=== PATIENT | female | born 1950 | race Caucasian/White ===

== ENCOUNTER 2023-04-19 17:59 | Outpatient (RCR) | payer OTHER, SELFPAY | END 2023-05-14 23:59 | disposition home or self-care (01) | LOC: MM 17:59 | PROVIDERS: PCP Internal Medicine; Visit Provider Internal Medicine | DX: Z51.81 Encounter for therapeutic drug level monitoring (principal); Z79.01 Long term (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 of anticoagulants | CPT/HCPCS: 85610; G0463 ==

== ENCOUNTER 2023-05-20 08:28 | Outpatient (RCR) | payer OTHER, SELFPAY | END 2023-06-14 16:48 | disposition home or self-care (01) | LOC: MM 08:28 | PROVIDERS: PCP Internal Medicine; Visit Provider Internal Medicine | DX: Z51.81 Encounter for therapeutic drug level monitoring (principal); Z79.01 Long term (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 of anticoagulants | CPT/HCPCS: 85610; G0463 ==

== ENCOUNTER 2023-06-15 09:01 | Outpatient (RCR) | payer OTHER, SELFPAY | END 2023-07-15 17:21 | disposition home or self-care (01) | LOC: MM 09:01 | PROVIDERS: Visit Provider Internal Medicine | DX: Z51.81 Encounter for therapeutic drug level monitoring (principal); Z79.01 Long term (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 of anticoagulants | CPT/HCPCS: 85610; G0463 ==

== ENCOUNTER 2023-07-16 08:33 | Outpatient (RCR) | payer OTHER, SELFPAY | END 2023-08-13 16:36 | disposition home or self-care (01) | LOC: MM 08:33 | PROVIDERS: PCP Internal Medicine; Visit Provider Internal Medicine | DX: Z51.81 Encounter for therapeutic drug level monitoring (principal); Z79.01 Long term (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 of anticoagulants | CPT/HCPCS: 85610; G0463 ==

== ENCOUNTER 2023-07-30 08:19 | Outpatient (OUT) | payer OTHER, SELFPAY ==
--- NOTE | 2023-07-30 08:21 | MM_ITS ---
Patient: BREANNA MCCORMICK Exam Date: 07/30/2023 : 1950 Gender:F Ordering : DR Broderick Joiner D.O. Admission #: [id number] Family : Order #: [id number] CLICK HERE TO VIEW EXAM RADIOLOGY REPORT PROCEDURE: MM TOMOSYNTHESIS SCREENING BI COMPARISON: MG MAMM SCREEN 3D [place] CAD, 06/24/2021. MG MAMM SCREEN 3D [place] CAD, 07/29/2022. INDICATIONS: Screening Calculator Name NCI Breast Cancer Risk Assessment Tool 5 Year Breast Cancer Risk 3.80% Lifetime Breast Cancer Risk 9.20% Personal Breast Cancer No Personal Ovarian Cancer No Treatments whipple procedure Family Cancers Sister with breast cancer at age 42; Father with liver cancer at age 57; Brother with pancreatic cancer at age 64. LOCATION: [facility] BREAST COMPOSITION: Heterogeneously dense,which may obscure small masses. FINDINGS: DIAGNOSTIC CATEGORY 2--BENIGN FINDING. NO CHANGE FROM COMPARISON. Scattered benign-appearing nodules are present. Scattered benign-appearing calcifications are present. Scattered benign-appearing lymph nodes are present. RIGHT BREAST: No significant suspicious finding. LEFT BREAST: No significant suspicious finding. RECOMMENDATIONS: ROUTINE MAMMOGRAM AND CLINICAL EVALUATION IN 12 MONTHS. PLEASE NOTE: A NORMAL MAMMOGRAM DOES NOT EXCLUDE THE POSSIBILITY OF BREAST CANCER. A CLINICALLY SUSPICIOUS PALPABLE LUMP SHOULD BE BIOPSIED. Dictated by: Gonzales Babcock MD on 07/30/2023 at 12:11 Approved by: Gonzales Babcock MD on 07/30/2023 at 12:13
== END 2023-07-30 08:20 | disposition home or self-care (01) ==
LOC: MAMMO 08:19
PROVIDERS: PCP Internal Medicine; Visit Provider Internal Medicine
DX: Z12.31 Encounter for screening mammogram for malignant neoplasm of breast (principal); Z80.3 Family history of malignant neoplasm of breast; Z80.8 Family history of malignant neoplasm of other organs or systems
CPT/HCPCS: 77063; 77067

== ENCOUNTER 2023-08-16 02:27 | Outpatient (RCR) | payer OTHER, SELFPAY | END 2023-09-14 17:35 | disposition home or self-care (01) | LOC: MM 02:27 | PROVIDERS: PCP Internal Medicine; Visit Provider Internal Medicine | DX: Z51.81 Encounter for therapeutic drug level monitoring (principal); Z79.01 Long term (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 of anticoagulants; I82.409 Acute embolism and thrombosis of unspecified deep veins of unspecified lower extremity | CPT/HCPCS: 85610; G0463 ==

== ENCOUNTER 2023-09-15 00:40 | Outpatient (RCR) | payer OTHER, SELFPAY | END 2023-10-14 16:46 | disposition home or self-care (01) | LOC: MM 00:40 | PROVIDERS: PCP Internal Medicine; Visit Provider Internal Medicine | DX: Z51.81 Encounter for therapeutic drug level monitoring (principal); Z79.01 Long term (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 of anticoagulants | CPT/HCPCS: 85610; G0463 ==

== ENCOUNTER 2023-10-15 09:08 | Outpatient (RCR) | payer OTHER, SELFPAY | END 2023-11-12 15:13 | disposition home or self-care (01) | LOC: MM 09:08 | PROVIDERS: PCP Internal Medicine; Visit Provider Internal Medicine | DX: Z51.81 Encounter for therapeutic drug level monitoring (principal); Z79.01 Long term (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 of anticoagulants | CPT/HCPCS: 85610; G0463 ==

== ENCOUNTER 2023-11-15 00:53 | Outpatient (RCR) | payer OTHER, SELFPAY | END 2023-12-15 16:57 | disposition home or self-care (01) | LOC: MM 00:53 | PROVIDERS: PCP Internal Medicine; Visit Provider Internal Medicine | DX: Z51.81 Encounter for therapeutic drug level monitoring (principal); Z79.01 Long term (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 of anticoagulants | CPT/HCPCS: 85610; G0463 ==

== ENCOUNTER 2023-12-16 01:40 | Outpatient (RCR) | payer OTHER, SELFPAY | END 2024-01-13 17:12 | disposition home or self-care (01) | LOC: MM 01:40 | PROVIDERS: PCP Internal Medicine; Visit Provider Internal Medicine | DX: Z51.81 Encounter for therapeutic drug level monitoring (principal); Z79.01 Long term (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 of anticoagulants; I82.409 Acute embolism and thrombosis of unspecified deep veins of unspecified lower extremity | CPT/HCPCS: 85610; G0463 ==

== ENCOUNTER 2024-01-14 01:06 | Outpatient (RCR) | payer OTHER, SELFPAY | END 2024-02-11 13:04 | disposition home or self-care (01) | LOC: MM 01:06 | PROVIDERS: PCP Internal Medicine; Visit Provider Internal Medicine | DX: Z51.81 Encounter for therapeutic drug level monitoring (principal); Z79.01 Long term (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 of anticoagulants | CPT/HCPCS: 85610; G0463 ==

== ENCOUNTER 2024-02-10 14:42 | Outpatient (OUT) | payer OTHER, SELFPAY ==
[2024-02-10 15:56] LABS: Alanine Aminotransferase 24 U/L (14-59); Albumin Globulin Ratio 0.9; Albumin Level 3.3 g/dL (3.4-5.0); Alkaline Phosphatase 174 U/L (46-116); Amylase 16 U/L (25-115); Anion Gap 13.8; Aspartate Amino Transferase 19 U/L (15-37); BUN Creatinine Ratio 13.8; Bilirubin Total 0.4 mg/dL (0.2-1.0); Calcium 8.6 mg/dL (8.5-10.1); Carbon Dioxide 26.8 mmol/L (21.0-32.0); Chloride 107 mmol/L (98-107); Estimated GFR (African America 33 (>=60); Estimated GFR (Non-African Ame 27 (>=60); Globulin 3.7 g/dL; Glucose 85 mg/dL (74-106); Potassium 4.6 mmol/L (3.5-5.1); Sodium 143 mmol/L (136-145)
[2024-02-11 04:12] LABS: CA 19-9 13 U/mL (0-35)
== END 2024-02-10 14:43 | disposition home or self-care (01) ==
LOC: LAB 14:44
PROVIDERS: PCP Internal Medicine; Visit Provider Internal Medicine
DX: C25.9 Malignant neoplasm of pancreas, unspecified (principal); R10.9 Unspecified abdominal pain
CPT/HCPCS: 36415; 80053; 82150; 83690; 86301

== ENCOUNTER 2024-02-14 00:06 | Outpatient (RCR) | payer OTHER, SELFPAY | END 2024-03-14 17:49 | disposition home or self-care (01) | LOC: MM 00:06 | PROVIDERS: PCP Internal Medicine; Visit Provider Internal Medicine | DX: Z51.81 Encounter for therapeutic drug level monitoring (principal); Z79.01 Long term (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 of anticoagulants | CPT/HCPCS: 85610; G0463 ==

== ENCOUNTER 2024-02-29 08:14 | Outpatient (OUT) | payer OTHER, SELFPAY ==
--- NOTE | 2024-02-29 08:20 | US_ITS ---
The [address] [address] Patient Name: BREANNA MCCORMICK MRN: [id number] date: 1950 Sex: F Assigned Patient Location: [place] Current Patient Location: Accession/Order Number: [id number] Exam Date: 02/29/2024 08:25 Report Date: 02/29/2024 09:18 At the request of: RALPH HOWARD Procedure: US renal BI EXAMINATION: US renal BI HISTORY: Chronic Kidney Disease N18.9 COMPARISON: No relevant comparison available. TECHNIQUE: Ultrasound examination was performed of the bladder. FINDINGS: Right Kidney: Normal size and contour. The cortex measures 0.4 cm. No solid cortical mass or hydronephrosis. 3 mm nonobstructing nephrolith Height: 3.3 cm Length: 7.3 cm Width: 2.8 cm Left Kidney: Normal in size, contour and echotexture. The cortex measures 1 cm. No solid mass or hydronephrosis Height: 5.0 cm Length: 9.7 cm Width: 5.0 cm Urinary bladder is minimally distended with a volume of 20 mL. US/US renal BI IMPRESSION: Severe right and mild left renal cortical atrophy Electronically authenticated by: EBEN HUSSEIN Date: 02/29/2024 09:18
== END 2024-02-29 08:15 | disposition home or self-care (01) ==
LOC: US 08:14
PROVIDERS: PCP Internal Medicine; Visit Provider Internal Medicine
DX: N18.9 Chronic kidney disease, unspecified (principal)
CPT/HCPCS: 76775

== ENCOUNTER 2024-03-03 09:18 | Outpatient (OUT) | payer OTHER, SELFPAY ==
--- OUTSIDE RECORDS SUMMARY | 2024-03-03 09:33 | XMS_ITS | CCD ---
Author Organization [facility] Care Team Providers Care Telecommunications Project Manager Name Role Phone Bertram Sanders Unavailable Broderick Joiner DO Primary Care Provider Pascual Vidal MD, Kitty Unavailable Un available Broderick Joiner DO Primary Care Provider Pascual Vidal MD, Kitty Unavailable Un available Broderick Joiner Unavailable FAWWAD, AGUILAR H Admitting Unavailable BALL, DR VILLAFANA Primary Care Unavailable FAWWAD, AGUILAR H Attending Unavailable FAWWAD, AGUILAR H Attending Unavailable FAWWAD, AGUILAR H Admitting Unavailable BALL, DR VILLAFANA Primary Care Unavailable FAWWAD, AGUILAR H Admitting Unavailable BALL, DR VILLAFANA Primary Care Unavailable FAWWAD, AGUILAR H Attending Unavailable BALL, DR VILLAFANA Primary Care Unavailable BALL, DR VILLAFANA Consulting Unavailable BALL, DR VILLAFANA Attending Unavailable BALL, DR VILLAFANA Admitting Unavailable FAWWAD, AGUILAR H Attending Unavailable BALL, DR VILLAFANA Primary Care Unavailable FAWWAD, AGUILAR H Admitting Unavailable BALL, DR VILLAFANA Primary Care Unavailable BALL, DR IVLLAFANA Consulting Unavailable BALL, DR VILLAFANA Attending Unavailable BALL, DR VILLAFANA Admitting Unavailable WEST, DR EBEN Gallegos Consulting Unavailable FAWWAD, AGUILAR H Attending Unavailable FAWWAD, AGUILAR H Admitting Unavailable BALL, DR VILLAFANA Primary Care Unavailable FAWWAD, AGUILAR H Attending Unavailable BALL, DR VILLAFANA Primary Care Unavailable FAWWAD, AGUILAR H Admitting Unavailable FAWWAD, AGUILAR H Attending Unavailable BALL, DR VILLAFANA Primary Care Unavailable FAWWAD, AGUILAR H Admitting Unavailable FAWWAD, AGUILAR H Admitting Unavailable BALL, DR VILLAFANA Primary Care Unavailable FAWWAD, AGUILAR H Attending Unavailable BALL, DR VILLAFANA Primary Care Unavailable FAWWAD, H Attending Unavailable FAWWAD, AGUILAR H Admitting Unavailable FAWWAD, AGUILAR H Attending Unavailable FAWWAD, AGUILAR H Admitting Unavailable BALL, DR VILLAFANA Primary Care Unavailable FAWWAD, H Attending Unavailable FAWWAD, AGUILAR H Admitting Unavailable BALL, DR VILLAFANA Primary Care Unavailable BALL, DR VILLAFANA Primary Care Unavailable BALL, DR VILLAFANA Consulting Unavailable BALL, DR VILLAFANA Attending Unavailable BALL, DR VILLAFANA Admitting Unavailable BALL, DR VILLAFANA Admitting Unavailable BALL, DR VILLAFANA Primary Care Unavailable BALL, DR VILLAFANA Attending Unavailable BALL, DR VILLAFANA Primary Care Unavailable BALL, DR VILLAFANA Consulting Unavailable BALL, DR VILLAFANA Admitting Unavailable BALL, DR VILLAFANA Attending Unavailable WEST, DR EBEN Gallegos Consulting Unavailable BALL, DR VILLAFANA Primary Care Unavailable BALL, DR VILLAFANA Consulting Unavailable BALL, DR VILLAFANA Admitting Unavailable BALL, DR VILLAFANA Attending Unavailable Ball, DO Villafana Primary Care Provider [phone] DO Broderick Joiner Attending Provider [phone] Blades, Niki Unavailable Blades, MD Niki Gomez Attending Provider [phone] [id number] Broderick Joiner Primary Care Unavailable Ball, Broderick Attending Unavailable Ball, Broderick Admitting Unavailable Ball, Broderick Primary Care Unavailable Blades, Niki A Admitting Unavailable Blades, Niki A Attending Unavailable Blades, Niki A Admitting Unavailable Blades, Niki A Attending Unavailable Ball, Broderick Primary Care Unavailable Ball, Broderick Primary Care Unavailable Ball, Broderick Attending Unavailable Ball, Broderick Admitting Unavailable Ball, Broderick Primary Care Unavailable Blades, Nkii A Admitting Unavailable Blades, Niki A Attending Unavailable Pascual Vidal MD, Kitty Unavailable Un available TANMIRIAN MCGINNIS Attending Unavailable BALL, BRODERICK Quinteros Primary Care Unavailable BALL, BRODERICK E Primary Care Unavailable STOJICALEJANDRO Attending Unavailable BALL, BRODERICK Quinteros Primary Care Unavailable Allergies Allergy Classification Reported Allergen(s) Allergy Type Date of Onset Reaction(s) Facility (20 sources) Dexamethasone; Translations: [DEXAMETHASONE] Drug Allergy 10-03-20 15 [facility] (20 sources) pregabalin; Translations: [PREGABALIN] Drug Allergy 08-24-20 13 [facility] (18 sources) rifAXIMin Drug Allergy 02-09-20 24 [facility] (1 source) Dexamethasone Drug Allergy [facility] (1 source) pregabalin Drug Allergy 11-15-19 08 [facility] (9 sources) Dexamethasone Drug Allergy 02-08-20 Unknown, Unknown Reaction [facility] (8 sources) Allergies Reconciled Propensity to adverse reactions Unknown [facility] (8 sources) patient allergy list reviewed by nurse or physicia Propensity to adverse reactions 04-13-20 Comment:Done [facility] (1 source) Dexamethasone Drug Allergy 01-06-20 [facility] (1 source) pregabalin Drug Allergy 01-06-20 [facility] Medications Current Medications Medication Drug Class(es) Dates Sig (Normalized) Sig (Original) acetaminophen 325 mg / HYDROcodone bitartrate 5 mg oral tablet (16 sources) Opioid Agonist Start: 02-08-2024 take 1 tablet by mouth every eight hours Hydrocodone-Aceta minophen Active 1 TAB PO Every 8 hours February 08, 2024 12:00am Start: 08-05-2023 End: 02-08-2024 take 1 tablet by mouth every six hours Hydrocodone-Acetaminophen Discontinued 1 TAB PO Q6H 56 14 August 05, 2023 February 08, 2024 11:22am Start: 05-03-2023 take 1 tablet by aris th every eight hours as needed for pain Start: 03-25-2023 take 1 tablet by aris th every eight hours as needed for pain HYDROcodone-Acetaminophen 5-325 MG 1 tab let as needed Orally every 8 hours as needed for pain, may cause sedation for 7 days March, Active amitriptyline hydrochloride 10 mg oral tablet (20 sources) Tricyclic Antidepressant Start: 07-20-2023 take 15 mg by mouth once daily at bedtime Amitriptyline Active 15 MG PO Daily at bedtime July 20, 2023 12:00am Start: 01-07-2023 Amitriptyline HCl 10 MG 2 and 1/2 tablets Orally Once a day Dec, Active Start: 01-07-2023 take 1.5 tablets by mouth every twenty-four hours Amitriptyline HCl 10 MG 1.5 tablets Orally Once a day Dec, Active Start: 02-20-2021 take 1 tablet by aris th at bedtime Amitriptyline HCl 25 MG 1 TABLET Orally AT BEDTIME for 30 days Feb, Active Start: 02-20-2021 take 1 tablet by airs th at bedtime Amitriptyline HCl 10 MG 1 TABLET Orally AT BEDTIME Feb, Active Comment on above: Take 25 mg by mouth daily at bedtime. amLODIPine 5 mg oral tablet (20 sources) Dihydropyridine Calcium Channel Dylan Start: End: take 5 mg by mouth once daily Amlodipine Active 5 MG PO Daily February 08, 2024 12:00am Start: 01-06-2021 End: 07-20-2023 take 10 mg by mouth once daily Amlodipine Discontinued 10 MG PO Daily January 06, 2021 1:00am July 20, 2023 11:41am Comment on above: Take 5 mg by mouth o nce daily. amoxicillin 875 mg / clavulanate 125 mg oral tablet (1 source) Penicillin-class Antibacterial Start: take 1 tablet by mouth every twelve hours Amoxicillin-Pot Clavulanate 875-125 MG 1 tablet Orally every 12 hrs for 7 days Nov, Active carvedilol 12.5 mg oral tablet (20 sources) alpha-Adrenergic Dylan, beta-Adrenergic Dylan Start: End: take 12.5 mg by mouth twice daily Carvedilol Active 12.5 MG PO Twice daily February 08, 2024 12:00am Comment on above: Take 12.5 mg by mout h twice daily with meals. cephalexin 500 mg oral tablet (5 sources) Cephalosporin Antibacterial Start: take 1 capsule by mouth twice daily Keflex 500 MG 1 capsule Orally bid for 7 days Jul, Active dicyclomine hydrochloride 20 mg oral tablet (9 sources) Anticholinergic Start: take 1 tablet by mouth twice daily as needed for pain Dicyclomine HCl 20 MG 1 tablet Orally twice daily as needed for ABD pain for 30 days Apr, Active 1 ml enoxaparin sodium 100 mg/ml prefilled syringe (2 sources) Low Molecular Weight Heparin Start: Enoxaparin (Lovenox) 100 mg/mL Syringe Active 90 MG SUBCUT Daily August 03, 2023 12:00am levETIRAcetam 750 mg oral tablet (20 sources) Start: 024 take 750 mg by mouth every twelve hours Levetiracetam Active 750 MG PO Every 12 hours February 08, 2024 12:00am Start: 01-06-2021 End: 12-22-2024 take 750 mg by mouth twice daily Levetiracetam Discontinued 750 MG PO Twice daily January 06, 2021 1:00am February 08, 2024 11:22am take 1 tablet by aris every twelve hours levETIRAcetam 750 MG 1 tablet Orally every 12 hrs Active Comment on above: Take 1 tablet by aris twice daily. Take 1 tablet by aris two times a day. take 1 tablet by aris twice a day linaclotide 0.072 mg oral capsule (17 sources) Guanylate Cyclase-C Agonist Start: 02-08-2024 take 72 ug by mouth once daily Linaclotide Active 72 MCG PO Daily February 08, 2024 12:00am Start: 01-07-2023 Linzess 72 MCG 1 capsule at least 30 minutes before the first meal of the day on an empty stomach Orally Once a day Dec, Active Start: 01-07-2023 Linzess 72 MCG 1 capsule at least 30 minutes before the first meal of the day on an empty stomach Orally Once a day Dec, Active losartan potassium 25 mg oral tablet (20 sources) Angiotensin 2 Receptor Dylan Start: 07-20-2023 End: 02-02-2024 take 25 mg by mouth once daily in the morning Losartan Active 25 MG PO Every morning 90 90 February 02, 2024 1:09pm mupirocin 0.02 mg/mg topical ointment (17 sources) RNA Synthetase Inhibitor Antibacterial Start: 02-08-2024 Mupirocin Active 1 APPLIC TOPICAL Twice daily February 08, 2024 12:00am Mupirocin 2 % 1 application Externally Twice a day Not-Taking/PRN omeprazole 40 mg delayed release oral capsule (20 sources) Proton Pump Inhibitor Start: 07-20-2023 take 40 mg by mouth once daily in the morning Omeprazole Active 40 MG PO Every morning July 20, 2023 11:46am Start: 01-06-2021 End: 07-20-2023 take 40 mg by mouth twice daily Omeprazole Discontinued 40 MG PO Twice daily 60 January 06, 2021 1:00am July 20, 2023 11:46am Start: 01-27-2011 End: 01-06-2021 take 40 mg by mouth once daily Omeprazole Discontinued 40 MG PO Daily January 06, 2021 1:00am January 06, 2021 11:13am Comment on above: Take 1 capsule by mo uth once daily. ondansetron 4 mg disintegrating oral tablet (20 sources) Serotonin-3 Receptor Antagonist Start: take 4 mg by mouth every eight hours Ondansetron Active 4 MG PO Q8H January 06, 2021 1:00am take 1 tablet by aris th every six hours as needed for nausea Ondansetron 4 MG DISSOLVE 1 TABLET IN MO UTH EVERY 6 HOURS NEEDED FOR NAUSEA for 3 Active Ondansetron HCl 4 MG 1 tablet on the tongue and allow to dissolve Orally PRN PRN Active 24 hr venlafaxine 150 mg extended release oral capsule (20 sources) Serotonin and Norepinephrine Reuptake Inhibitor Start: 02-08-2024 take 75 mg by mouth once daily Venlafaxine Active 75 MG PO Daily February 08, 2024 12:00am Start: 07-20-2023 End: 02-08-2024 take 150 mg by mouth once daily Venlafaxine Active 150 MG PO Daily February 08, 2024 12:00am Start: 01-06-2021 End: 09-08-2023 take 75 mg by mouth once daily Venlafaxine Discontinue d 75 MG PO Daily January 06, 2021 1:00am July 20, 2023 11:47am take 1 tablet by aris th every twenty-four hours Venlafaxine HCl 75 MG 1 tablet with food Orally Once a day Not-Taking/PRN Comment on above: Take 1 capsule by mo uth once daily. zonisamide 100 mg oral capsule (20 sources) Anti-epileptic Agent Start: 02-09-2024 take 300 mg by mouth once daily Zonisamide Active 300 MG PO Daily February 09, 2024 3:12pm Start: 12-23-2023 End: 12-22-2024 take 3 capsules by mouth once daily at bedtime zonisamide (ZONEGRAN) 100 mg capsule Take 3 capsules by mouth daily at bedtime. 270 capsule 3 12/23/2023 12/22/2024 Active Start: 09-19-2021 End: 12-23-2023 take 2 capsules by mouth once daily at bedtime zonisamide (ZONEGRAN) 100 mg capsule Indications: Partial epilepsy with impairment of consciousness, intractable (HCC) Take 2 capsules by mouth daily at bedtime. 180 capsule 3 09/10/2022 12/23/2023 Discontinued Start: 01-06-2021 End: 02-09-2024 take 200 mg by mouth once daily Zonisamide Discontinue d 200 MG PO Daily January 06, 2021 1:00am February 09, 2024 3:12pm Start: 01-06-2021 take 100 mg by mouth once pat y Zonisamide Active 100 MG PO Daily January 06, 2021 1:00am Comment on above: Take 2 capsules by m outh daily at bedtime. Take 3 capsules by m outh daily at bedtime. Completed/Discontinued Medications Medication Drug Class(es) Dates Sig (Normalized) Sig (Original) acetaminophen 500 mg oral capsule (3 sources) Start: 07-20-2023 End: 02-08-2024 take 2 capsules by mouth every six hours Acetaminophen (Tylenol Extra Strength) 500 mg Capsule Discontinued 1000 MG PO Q6H July 20, 2023 12:00am February 08, 2024 11:20am alendronic acid 70 mg oral tablet (4 sources) Bisphosphonate Start: 08-15-2021 End: 09-10-2022 take 1 tablet by mouth every week alendronate (FOSAMAX) 70 mg tablet Take 70 mg by mouth one time a week. 0 08/15/2021 09/10/2022 Discontinued (Discontinued by another Health Care Provider) Comment on above: Take 70 mg by mouth one time a week. hydrALAZINE hydrochloride 50 mg oral tablet (5 sources) Arteriolar Vasodilator Start: 01-06-2021 End: 07-20-2023 Hydralazine Discontinued 50 MG PO As Directed January 06, 2021 1:00am July 20, 2023 11:41am melatonin 5 mg oral tablet (5 sources) Start: 01-06-2021 End: 07-20-2023 take 5 mg by mouth at bedtime Melatonin Discontinued 5 MG PO Bedtime January 06, 2021 1:00am July 20, 2023 11:48am naproxen sodium 220 mg oral tablet (8 sources) Nonsteroidal Anti-inflammatory Drug Start: 01-06-2021 End: 07-20-2023 take 1 tablet by mouth twice daily Naproxen Sodium (Aleve) 220 mg Tablet Discontinued 220 MG PO Twice daily January 06, 2021 1:00am July 20, 2023 11:48am End: 09-10-2022 naproxen sodium (ALEVE ORAL) Take by mouth as needed. 0 09/10/2022 Discontinued (Discontinued by another Health Care Provider) naproxen sodium (ALEVE ORAL) Take by mouth as needed. 0 Active Comment on above: Take by mouth as nee ded. tiZANidine 4 mg oral tablet (2 sources) Central alpha-2 Adrenergic Agonist Start: 3 End: 4 take 4 mg by mouth twice daily Tizanidine Discontinued 4 MG PO Twice daily August 05, 2023 12:00am February 08, 2024 11:24am traMADol hydrochloride 50 mg oral tablet (8 sources) Opioid Agonist Start: 0 End: 3 take 50 mg by mouth once daily Tramadol Discontinued 50 MG PO Daily January 06, 2021 1:00am July 20, 2023 11:48am warfarin sodium 2 mg oral tablet (20 sources) Vitamin K Antagonist Start: 3 End: 4 take 2 mg by mouth once Warfarin Discontinued 2 MG PO every Wednesday, Wednesday, Wednesday, and Thursday July 20, 2023 12:00am February 08, 2024 11:26am Start: 10-03-2015 take 4 mg by mouth once Warfar in Active 4 MG PO every Wednesday, and Wednesday January 06, 2021 1:00am Comment on above: Take 1 tablet by aris th once daily. Problems Active Problems Problem Classification Problem Date Documented Da te Episodic/Chronic Abdominal pain (20 sources) Abdominal pain; Translations: [Unspecified abdominal pain] Onset: 04-30-2014 02-08-2024 Episodic Acute bronchitis (8 sources) Acute bronchitis; Translations: [Acute bronchitis due to other specified organisms] Episodic Anxiety disorders (20 sources) Anxiety; Translations: [Anxiety disorder, unspecified] Onset: 06-21-2018 06-21-2018 Chronic Asthma (9 sources) Asthma without status asthmaticus; Translations: [Asthma, unspecified, unspecified status] Onset: 04-30-2014 02-08-2024 Chronic Biliary tract disease (1 source) Disorder of gallbladder; Translations: [Disease of gallbladder, unspecified] 02-08-2024 Episodic Cancer of other GI organs; peritoneum (11 sources) Carcinoma of ampulla of Vater; 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] Onset: 03-10-2011 03-10-2011 Chronic Cancer of other GI organs; peritoneum (20 sources) History of cancer of ampulla of duodenum; Translations: [Personal history of malignant neoplasm of other digestive organs] Onset: 04-30-2014 Episodic Cancer of pancreas (19 sources) Malignant tumor of pancreas; Translations: [Malignant neoplasm of pancreas, unspecified] Onset: 01-29-2011 05-14-2015 Chronic Cardiac dysrhythmias (12 sources) Sinus node dysfunction; Translations: [Sick sinus syndrome] Onset: 07-11-2015 07-11-2015 Chronic Chronic kidney disease (20 sources) Chronic kidney disease stage 3B ; Translations: [Stage 3b chronic kidney disease] Onset: 08-04-2022 Chronic Complications of surgical procedures or medical care (6 sources) Postoperative wound infection; Translations: [Infection following a procedure, other surgical site, initial encounter] Onset: 08-12-2023 Episodic Conditions associated with dizziness or vertigo (20 sources) Benign paroxysmal positional vertigo; Translations: [Benign paroxysmal vertigo, left ear] Resolved: 01-27-2022 Episodic Conduction disorders (15 sources) Cardiac pacemaker in situ; Translations: [Presence of cardiac pacemaker] Onset: 05-23-2015 11-10-2021 Chronic Epilepsy; convulsions (20 sources) Partial epilepsy with impairment of consciousness; Translations: [Localization-relate d (focal) (partial) symptomatic epilepsy and epileptic syndromes with complex partial seizures, intractable, without status epilepticus] Onset: 04-30-2014 08-19-2015 Chronic Esophageal disorders (19 sources) Esophageal reflux finding; Translations: [Esophageal reflux] Onset: 04-30-2014 02-08-2024 Chronic Esophageal disorders (16 sources) Esophageal disorders; Translations: [Gastroesophageal reflux disease with esophagitis without hemorrhage] Essential hypertension (20 sources) Hypertensive disorder; Translations: [Essential (primary) hypertension] Onset: 04-30-2014 08-19-2015 Chronic Headache; including migraine (20 sources) Migraine; Translations: [Migraine, unspecified, not intractable, without status migrainosus] Onset: 04-30-2014 01-24-2015 Chronic Hypertension with complications and secondary hypertension (20 sources) Chronic kidney disease due to hypertension; Translations: [Hypertensive chronic kidney disease with stage 1 through stage 4 chronic kidney disease, or unspecified chronic kidney disease] Onset: 08-10-2022 Chronic Immunizations and screening for infectious disease (9 sources) Encounter for immunization; Translations: [Vaccination given] Onset: 06-08-2022 Episodic Malaise and fatigue (1 source) Fatigue; Translations: [Chronic fatigue, unspecified] Chronic Malaise and fatigue (20 sources) Fatigue; Translations: [Other fatigue] Onset: 03-13-2019 03-13-2019 Episodic Menopausal disorders (17 sources) Postmenopausal bleeding; Translations: [Postmenopausal bleeding] Onset: 05-13-2006 02-08-2024 Chronic Miscellaneous mental health disorders (8 sources) Non-organic sleep disorder; Translations: [Nonorganic sleep disorder, unspecified] Onset: 04-30-2014 Chronic Mood disorders (20 sources) Depressive disorder; Translations: [Depression] Onset: 08-19-2015 08-19-2015 Chronic Nonspecific chest pain (20 sources) Tight chest; Translations: [Other chest pain] 02-08-2024 Episodic Nutritional deficiencies (20 sources) Vitamin D deficiency; Translations: [Vitamin D deficiency, unspecified] 02-08-2024 Chronic Osteoarthritis (1 source) Arthritis; Translations: [Unspecified osteoarthritis, unspecified site] 02-08-2024 Chronic Osteoporosis (20 sources) Osteoporosis; Translations: [Age-related osteoporosis without current pathological fracture] Chronic Other aftercare (16 sources) H/O: high risk medication; Translations: [Other lobsterman (current) drug therapy] Episodic Other aftercare (20 sources) Long-term current use of anticoagulant; 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] Onset: 04-30-2014 02-08-2024 Episodic Other aftercare (5 sources) Encounter for therapeutic drug level monitoring; Translations: [[facility] DRUG LEVL MONITORING] Onset: 03-13-2023 Episodic Other aftercare (1 source) penitentiary (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 of anticoagulants; Translations: [SHEARER SCREEN MEASURER AND TRIMMER CURRNT USE ANTICOAGULANTS] Onset: 04-14-2023 Episodic Other aftercare (8 sources) Long-term current use of drug therapy; Translations: [Other half-way (current) drug therapy] Episodic Other aftercare (1 source) Drug therapy finding; Translations: [Other half-way (current) drug therapy] 02-08-2024 Episodic Other and ill-defined heart disease (1 source) Heart disease; Translations: [Heart disease, unspecified] 02-08-2024 Chronic Other and unspecified benign neoplasm (17 sources) History of polyp of colon; Translations: [Personal history of colonic polyps] Episodic Other bone disease and musculoskeletal deformities (8 sources) Disorder of bone; Translations: [Disorder of bone, unspecified] Episodic Other circulatory disease (11 sources) Inferior vena cava filter in situ; Translations: [Presence of other vascular implants and grafts] Onset: 03-09-2013 03-09-2013 Chronic Other connective tissue disease (16 sources) Unspecified rotator cuff tear or rupture of left shoulder, not specified as traumatic; Translations: [Traumatic rupture of tendon of left supraspinatus muscle (disorder)] Episodic Other connective tissue disease (17 sources) Adhesive capsulitis of left shoulder; Translations: [Adhesive capsulitis of left shoulder] 02-08-2024 Episodic Other connective tissue disease (2 sources) Arthrodesis status Episodic Other connective tissue disease (8 sources) Nontraumatic rupture of rotator cuff of left shoulder; Translations: [Unspecified rotator cuff tear or rupture of left shoulder, not specified as traumatic] Episodic Other diseases of kidney and ureters (1 source) Kidney disease; Translations: [Disorder of kidney and ureter, unspecified] 02-08-2024 Episodic Other gastrointestinal disorders (14 sources) Irritable bowel syndrome characterized by constipation; Translations: [Irritable bowel syndrome with constipation] 02-08-2024 Chronic Other gastrointestinal disorders (1 source) Irritable bowel syndrome with constipation Chronic Other gastrointestinal disorders (17 sources) Constipation; Translations: [Constipation, unspecified] Episodic Other gastrointestinal disorders (16 sources) Other specified diseases of intestine; Translations: [Small intestinal bacterial overgrowth (SIBO)] Episodic Other gastrointestinal disorders (17 sources) Alteration in bowel elimination; Translations: [Change in bowel habit] Episodic Other gastrointestinal disorders (3 sources) Constipation, unspecified Episodic Other gastrointestinal disorders (1 source) Small bowel bacterial overgrowth syndrome; Translations: [Other specified diseases of intestine] Episodic Other gastrointestinal disorders (1 source) Altered bowel function; Translations: [Change in bowel habit] 02-08-2024 Episodic Other injuries and conditions due to external causes (8 sources) History of fall; Translations: [History of falling] Episodic Other nutritional; endocrine; and metabolic disorders (20 sources) Obesity; Translations: [Obesity, unspecified] Chronic Other upper respiratory infections (17 sources) Acute maxillary sinusitis; Translations: [Acute maxillary sinusitis, unspecified] Episodic Residual codes; unclassified (11 sources) Insomnia; Translations: [Other insomnia] Onset: 06-21-2018 06-21-2018 Chronic Residual codes; unclassified (20 sources) Obstructive sleep apnea syndrome; Translations: [Obstructive sleep apnea (adult) (pediatric)] 02-08-2024 Chronic Residual codes; unclassified (2 sources) Obstructive sleep apnea (adult) (pediatric) Chronic Residual codes; unclassified (8 sources) Asymptomatic menopausal state; Translations: [Menopause] Episodic Residual codes; unclassified (16 sources) Edema; Translations: [Localized edema] Episodic Residual codes; unclassified (8 sources) Menopause present; Translations: [Asymptomatic menopausal state] Episodic Residual codes; unclassified (8 sources) Postmenopausal state; Translations: [Asymptomatic menopausal state] Episodic Residual codes; unclassified (9 sources) Localized edema; Translations: [Localized edema] 02-08-2024 Episodic Retinal detachments; defects; vascular occlusion; and retinopathy (16 sources) Retinal hemorrhage; 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, bilateral] Chronic Spondylosis; intervertebral disc disorders; other back problems (20 sources) Cervical spondylosis; Translations: [Spondylosis without myelopathy or radiculopathy, cervical region] Onset: 04-30-2014 Chronic Spondylosis; intervertebral disc disorders; other back problems (20 sources) Thoracic and lumbosacral neuritis; Translations: [Thoracic or lumbosacral neuritis or radiculitis, unspecified] Onset: 04-30-2014 Resolved: 07-30-2021 Episodic Spondylosis; intervertebral disc disorders; other back problems (1 source) Spondylosis; intervertebral disc disorders; other back problems; Translations: [Other spondylosis with radiculopathy, lumbosacral region] Onset: 06-04-2023 Thyroid disorders (20 sources) Thyroid nodule; Translations: [Nontoxic single thyroid nodule] Chronic Unclassified (3 sources) LOW BACK PAIN, UNSPECIFIED; Translations: [LOW BACK PAIN, UNSPECIFIED] Onset: 04-01-2023 Unclassified (8 sources) Exposure to acute respiratory syndrome coronavirus 2; Translations: [Contact with and (suspected) exposure to COVID-19] Unclassified (1 source) Spinal stenosis, lumbar region with neurogenic claudication; Translations: [Spinal stenosis, lumbar region with neurogenic claudication] Onset: 08-03-2023 Unclassified (1 source) Encounter for preprocedural laboratory examination; Translations: [Encounter for preprocedural laboratory examination] Onset: 07-20-2023 Unclassified (1 source) Encounter for checking and testing of cardiac pacemaker pulse generator [battery]; Translations: [Encounter for checking and testing of cardiac pacemaker pulse generator [battery]] Onset: 05-14-2023 Viral infection (4 sources) COVID-19; Translations: [COVID-19] Onset: 06-08-2022 Past or Other Problems Problem Classification Problem Date Documented Da te Episodic/Chronic Blindness and vision defects (11 sources) Homonymous hemianopia; Translations: [Homonymous bilateral field defects, unspecified side] Onset: 10-08-2015 10-08-2015 Episodic Cardiac dysrhythmias (12 sources) Bradycardia; Translations: [Bradycardia, unspecified] Onset: 05-14-2015 05-14-2015 Episodic Chronic kidney disease (4 sources) Chronic kidney disease; Translations: [CHRONIC KIDNEY DISEASE STAGE 3A] Onset: 08-12-2022 Complication of device; implant or graft (11 sources) Complication of intravascular line; Translations: [Unspecified complication of cardiac and vascular prosthetic device, implant and graft, initial encounter] Onset: 03-29-2014 03-29-2014 Episodic Deficiency and other anemia (9 sources) Anemia; Translations: [Anemia, unspecified] Onset: 05-30-2019 03-26-2024 Episodic Epilepsy; convulsions (8 sources) Seizure; Translations: [Other convulsions] Onset: 01-05-2019 Episodic Nausea and vomiting (20 sources) Nausea; Translations: [Nausea] Onset: 09-19-2018 Resolved: 01-06-2022 Episodic Neoplasms of unspecified nature or uncertain behavior (8 sources) 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; Translations: [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] Resolved: 07-30-2021 Episodic Other aftercare (11 sources) Anticoagulant effect; 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] Onset: 05-14-2015 05-14-2015 Episodic Other aftercare (1 source) Other half-way (current) drug therapy; Translations: [OTH ALF CURRENT DRUG THERAPY] Onset: 08-04-2022 Episodic Other aftercare (8 sources) Encounter for other orthopedic aftercare; Translations: [Encounter for other orthopedic aftercare] Resolved: 07-30-2021 Episodic Other aftercare (8 sources) Therapeutic drug level - finding; Translations: [Encounter for therapeutic drug level monitoring] Resolved: 07-30-2021 Episodic Other bone disease and musculoskeletal deformities (8 sources) Tietze's disease; 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 junction syndrome [Tietze]] Resolved: 07-30-2021 Episodic Other circulatory disease (8 sources) Cardiovascular symptoms; Translations: [Other specified symptoms and signs involving the circulatory and respiratory systems] Resolved: 03-03-2022 Episodic Other connective tissue disease (11 sources) Pain in limb; Translations: [Pain in unspecified limb] Onset: 03-13-2019 03-13-2019 Episodic Other connective tissue disease (11 sources) Pain in left arm; Translations: [Pain in left arm] Onset: 10-24-2019 10-24-2019 Episodic Other connective tissue disease (8 sources) Spasm; Translations: [Spasm of muscle] Onset: 04-30-2014 Episodic Other connective tissue disease (8 sources) Unspecified rotator cuff tear or rupture of unspecified shoulder, not specified as traumatic; Translations: [Unsp rotatr-cuff tear/ruptr of unsp shoulder, not trauma] Resolved: 07-24-2020 Episodic Other connective tissue disease (8 sources) Full thickness rotator cuff tear; Translations: [Complete rotator cuff tear or rupture of left shoulder, not specified as traumatic] Resolved: 07-30-2021 Episodic Other connective tissue disease (8 sources) Neuralgia; Translations: [Neuralgia and neuritis, unspecified] Resolved: 07-24-2020 Episodic Other eye disorders (11 sources) Hypertropia of right eye; 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, right eye] Onset: 10-08-2015 10-08-2015 Episodic Other liver diseases (11 sources) Alkaline phosphatase raised; Translations: [Abnormal levels of other serum enzymes] Onset: 05-14-2015 05-14-2015 Episodic Other nervous system disorders (8 sources) Impaired cognition; Translations: [Other symptoms and signs involving cognitive functions and awareness] Resolved: 01-25-2022 Episodic Other nervous system disorders (9 sources) Paresthesia; Translations: [Paresthesia of skin] Onset: 01-05-2019 02-08-2024 Episodic Other non-traumatic joint disorders (8 sources) Shoulder joint pain; Translations: [Pain in left shoulder] Resolved: 07-24-2020 Episodic Other nutritional; endocrine; and metabolic disorders (11 sources) Abnormal weight loss; Translations: [Abnormal weight loss] Onset: 08-07-2016 08-07-2016 Episodic Other screening for suspected conditions (not mental disorders or infectious disease) (4 sources) Encounter for screening mammogram for malignant neoplasm of breast; Translations: [ENC SCR MAMMO MALIG NEOPLASM BREAST] Onset: 07-29-2022 Episodic Other upper respiratory disease (8 sources) Bleeding from nose; Translations: [Epistaxis] Resolved: 07-30-2021 Episodic Phlebitis; thrombophlebitis and thromboembolism (20 sources) Deep venous thrombosis of right lower extremity; Translations: [Acute embolism and thrombosis of unspecified deep veins of right lower extremity] Onset: 03-09-2013 05-14-2015 Episodic Residual codes; unclassified (11 sources) Family history of malignant neoplasm of pancreas; Translations: [Family history of malignant neoplasm of digestive organs] Onset: 09-19-2018 09-19-2018 Episodic Residual codes; unclassified (1 source) Family history of malignant neoplasm of breast; Translations: [FAMILY HX MALIG NEOPLASM OF BREAST] Onset: 07-31-2022 Episodic Residual codes; unclassified (1 source) Family history of malignant neoplasm of other organs or systems; Translations: [FAM HX MALIG NEOPLASM OTH ORGN/SYS] Onset: 07-31-2022 Episodic Sprains and strains (8 sources) Neck sprain; Translations: [Strain of muscle, fascia and tendon at neck level, initial encounter] Resolved: 07-24-2020 Episodic Unclassified (1 source) LOW BACK PAIN, UNSPECIFIED; Translations: [LOW BACK PAIN, UNSPECIFIED] Onset: 03-29-2023 Unclassified (8 sources) Gynecological examination normal; Translations: [Routine gynecological examination] Onset: 02-22-2008 Results Test Name Value Interpretation Reference Range Facility CNOVon 12-23-2023 CNOV Office Visit (NEEPFV ) -- CASSI RODRIGEZ ([id number]) 1950 F Date Time Provider Department 12/23/23 9:00 AM ALEJANDRO VILLAR NEEPFV During your visit today, we recorded the following information about you: Temperature Pulse Blood pressure Weight 97.6 degrees 85/minute 133/72 86.6 kg Height 1.575 m Alejandro Villar MD, PhD 12/23/2023 1:37 PM Signed [facility] EPILEPSY CENTER CHIEF COMPLAINT: Patient presents with: Follow Up Epilepsy HISTORY OF PRESENT ILLNESS: Cassi Rodrigez is a 73 year old female with past medical history of depression, hypertension, SSS s/p PPM, pancreatic cancer, migraines, SHELL and medically intractable focal epilepsy, s/p right temporal lobectomy 08/16/2015 (pathology: MUSHTAQ / FCD). She presents for routine follow up regarding seizures. She is a patient of Dr. Alejandro Villar, last seen by Lauren Otero CNP AND Dr. Alejandro Villar on 09/10/2022. Interval update 12/23/2023: Patient reports eugenie vu like I've been there before and done that before occurring ~ 2-3 times per month, lasts a few seconds then back to baseline. No ADRIENNE. She has been under increased stress recently, which is possible trigger. Reports multiple deaths in her family. She is taking LEV 750 mg BID and ZNS 200 mg qHS. No clear side effects. She does report fatigue, but states she does not necessarily think its related to ASM. She does have history of untreated SHELL, feels she sleeps well though. She had a lumbar laminectomy in 07/2023, did well for a while but now starting to have pain again. Her surgeon retired in 10/2023, so she is looking for new provider. Otherwise, her has been concerned with her voice, has been more raspy and low recently but no other associated symptoms. Does make note of ongoing headaches. She is retired. Does not drive. Office visit 08/2022: Today, she states she is having ~ one aura per month, described as eugenie vu. She is taking LEV 750 mg BID and ZNS 200 mg qHS. Takes them at 7A and 7P. Denies side effects. States she has been more tired recently. Goes to bed at 10PM, wakes up at 8AM, takes a nap from 11A-1P and again naps from 3-4P. PCP did blood work, was told her creatinine was elevated and GFR low, so Fosamax was stopped. She has history of SHELL, but has not been wearing CPAP as she lost weight and mask wasn't fitting correctly. Also has been more stressed recently, states a lot of family stressors, including family members moving away. Takes Effexor, which PCP just increased dose of. Rarely drives. Office visit 09/19/2021: Today, patient reports she has experienced four episodes of eugenie vu since NASRIN. Unsure of dates. She describes them as something that has happened before . She is unclear if she has ADRIENNE, tells her he will notice her staring/zoning out for about 10-30 seconds during this time. She reports that prior to resection, couldn't get me to come back from [place] but now he can get me out of it. In other health, she continues to experience persistent headaches. She was referred to the headache clinic at [facility] in the past but at this time she feels that she can deal with them. Feels tired all the time and does not have energy like she used to. Does not report any change in fatigue since decreasing LEV in 2019 (in efforts to help fatigue). She recently was diagnosed with CKD stage 3 and osteoporosis. Current ASM: ZNS 100 mg qHS (9 PM) LEV 750 mg BID (9 AM/9 PM) CURRENT OUTPATIENT MEDICATIONS: Current Outpatient Medications Medication Sig alendronate (FOSAMAX) 70 mg tablet Take 70 mg by mouth one time a week. venlafaxine ER (EFFEXOR XR) 75 mg 24 hr capsule Take 1 capsule by mouth once daily. zonisamide (ZONEGRAN) 100 mg capsule Take 2 capsules by mouth daily at bedtime. amitriptyline (ELAVIL) 25 mg tablet Take 25 mg by mouth daily at bedtime. carvedilol (COREG) 12.5 mg tablet Take 12.5 mg by mouth twice daily with meals. levETIRAcetam (KEPPRA) 750 mg tablet TAKE 1 TABLET BY MOUTH TWICE A DAY ondansetron orally disintegrating (ZOFRAN ODT) 4 mg disintegrating tablet traMADol (ULTRAM) 50 mg tablet naproxen sodium (ALEVE ORAL) Take by mouth as needed. warfarin (COUMADIN) 4 mg tablet Take 1 tablet by mouth once daily. Omeprazole (PRILOSEC) 40 mg ORAL capsule Take 1 capsule by mouth once daily. No current facility-administered medications for this visit. NEUROLOGICAL EXAM: Pt is alert and oriented to person, place, and time. The pupils were symmetrical, round, and reactive to light and accommodation. The ocular ductions were full with no evidence for gaze evoked nystagmus. There was no evidence for facial asymmetry. Muscle tone was normal and there was no evidence for pronator drift or tremor. There is no focal weakness. PREVIOUS EVALUATIONS: [facility], 05/2015: Right Temporal Epilepsy Seizures: Aura -> Dialept (more content not included)... Normal [facility] 09-13-2023 [facility] Telephone (CARDAV) -- CASSI RODRIGEZ ([id number]) 1950 F Date Time Provider Department 09/13/23 MIRIAN TAN During your visit today, we recorded the following information about you: Brenda Hodges RN 09/13/2023 8:00 AM Signed Received medical records from [facility] and scanned into chart for review. Mirian Tan APRN.CNP 09/13/2023 1:54 PM Signed Thank you reviewed scan documents. Mirian Tan APRN.CNP Allergies As of Date: 09/13/2023 Noted Allergy Reaction LYRICA (PREGABALIN) 08/24/2013 2 - Rash DEXAMETHASONE 10/03/2015 2 - Rash Date Reviewed: 09/08/2023 Reviewed by: Gustabo Alvarez LPN - Fully Assessed Reason for Visit: Patient Update [1234] Primary Visit Diagnosis:Pacemaker [Z95.0] [Z95.0] Prescriptions as of 09/13/2023 - levETIRAcetam (KEPPRA) 750 mg tablet Take 1 tablet by mouth two times a day. - zonisamide (ZONEGRAN) 100 mg capsule Take 2 capsules by mouth daily at bedtime. - amLODIPine (NORVASC) 5 mg tablet Take 5 mg by mouth once daily. - amitriptyline (ELAVIL) 25 mg tablet Take 25 mg by mouth daily at bedtime. - carvedilol (COREG) 12.5 mg tablet Take 12.5 mg by mouth twice daily with meals. - ondansetron orally disintegrating (ZOFRAN ODT) 4 mg disintegrating tablet - warfarin (COUMADIN) 4 mg tablet Take 1 tablet by mouth once daily. - omeprazole (PRILOSEC) 40 mg capsule Take 1 capsule by mouth once daily. 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 Right leg DVT (HCC) [I82.401] 03/09/2013 Presence of IVC filter [Z95.828] 03/09/2013 Central line complication (HCC) [T82.9XXA] 03/29/2014 Migraine [G43.909] 01/24/2015 Seizure (HCC) [R56.9] 01/24/2015 06/21/2018 New daily persistent headache [G44.52] 04/19/2015 HTN (hypertension) [I10] 05/14/2015 Bradycardia [R00.1] 05/14/2015 Anticoagulated on Coumadin [Z79.01] 05/14/2015 Elevated alkaline phosphatase level [R74.8] 05/14/2015 Partial epilepsy with impairment of consciousne*05/20/2015 Cardiac pacemaker in situ [Z95.0] 05/23/2015 Sinus node dysfunction (HCC) [I49.5] 07/11/2015 Depression [F32.A] 08/19/2015 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*10/08/2015 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] 10/08/2015 Abnormal weight loss [R63.4] 08/07/2016 Anxiety [F41.9] 06/21/2018 Other insomnia [G47.09] 06/21/2018 Nausea [R11.0] 09/19/2018 Family history of pancreatic cancer [Z80.0] 09/19/2018 Left-sided weakness [R53.1] 03/13/2019 Paresthesia and pain of left extremity [M79.609*03/13/2019 Left arm pain [M79.602] 10/24/2019 Encounter Status:Closed by MIRIAN TAN on 09/13/23 [facility] 09-08-2023 CNOV Office Visit (CARDAV ) -- CASSI RODRIGEZ ([id number]) 1950 F Date Time Provider Department 09/08/23 2:30 PM MIRIAN TAN During your visit today, we recorded the following information about you: Pulse Blood pressure Weight Height 62/minute 130/64 86.5 kg 1.575 m Mirian Tan APRN.CNP 09/08/2023 3:29 PM Signed [facility] Department of Cardiovascular Medicine SECTION OF CARDIAC PACING and ELECTROPHYSIOLOGY OUTPATIENT VISIT DATE September 08, 2023 OUTPATIENT VISIT TYPE ESTABLISHED PRIMARY CARE PHYSICIAN: Broderick Joiner (Zack) [address] [place] [address] CHIEF COMPLAINT: follow up device management HISTORY OF PRESENT ILLNESS: Ms. Rodrigez is a 73 year old female who presents today for followed by Dr. Garner for h/o symptomatic sinus bradycardia (presyncope, decrease exercise tolerance, sinus node dysfunction, s/p dual chamber pacemaker (medtronic, 2014), preserved LV systolic heart function, Other PMH of epilepsy (managed with antiepileptic), h/o pancreatic cancer (s/p whipple, chemo), hypertension, asthma, depression, GERD h/o right leg DVT (2012), seizure, SHELL, IBS, half-way anticoagulation. Moderate functional capacity (active with ADL, lives with ), she states compliance with medications. She states since last visit July had lumbar laminectomy surgery, now walking for her physical therapy, no other complaints She denies chest pain, shortness of breath, orthopnea, cough, edema, palpitations, PND, lightheadedness or syncope. PAST CARDIAC HISTORY: see below PAST MEDICAL HISTORY Diagnosis Date Asthma, chronic Depression DJD (degenerative joint disease) HTN (hypertension) IBS (irritable bowel syndrome) SHELL (obstructive sleep apnea) Reflux Right leg DVT (HCC) 03/09/2013 Seizure (HCC) Seizures (HCC) PAST SURGICAL HISTORY Procedure Laterality Date ANTERIOR INTERBODY FUSION, CERVICAL APPENDECTOMY CHOLECYSTECTOMY PAST SURGICAL HISTORY OF 08/16/15 right frontal lobectomy SOCIAL HISTORY Social History Tobacco Use Smoking status: Never Smokeless tobacco: Never Vaping Use Vaping Use: Never used Substance Use Topics Alcohol use: No Drug use: No FAMILY HISTORY Problem Relation Age of Onset other (Liver Ca[other]) Father Breast Cancer Sister No Ocular Disease Other ALLERGIES: ALLERGIES Allergen Reactions Lyrica [Pregabalin] Rash Dexamethasone Rash MEDICATIONS: zonisamide (ZONEGRAN) 100 mg capsule Take 2 capsules by mouth daily at bedtime. levETIRAcetam (KEPPRA) 750 mg tablet Take 1 tablet by mouth twice daily. amLODIPine (NORVASC) 5 mg tablet Take 5 mg by mouth once daily. venlafaxine ER (EFFEXOR XR) 75 mg 24 hr capsule Take 1 capsule by mouth once daily. amitriptyline (ELAVIL) 25 mg tablet Take 25 mg by mouth daily at bedtime. carvedilol (COREG) 12.5 mg tablet Take 12.5 mg by mouth twice daily with meals. ondansetron orally disintegrating (ZOFRAN ODT) 4 mg disintegrating tablet warfarin (COUMADIN) 4 mg tablet Take 1 tablet by mouth once daily. omeprazole (PRILOSEC) 40 mg capsule Take 1 capsule by mouth once daily. REVIEW OF SYSTEMS: GENERAL: Negative for: Weight loss or gain, Fever or Chills, Weakness and Sleep difficulties. NECK: Negative for: Swelling, Pain, Stiffness RESPIRATORY: Negative for: Cough, Blood in Sputum, Shortness of breath, Wheezing, Apnea GASTROINTESTINAL: Negative for: Trouble swallowing, Heartburn, Change in bowel habits, Blood in stool, Dark black stools MUSCULOSKELETAL: Negtive for: Muscle or joint pain, stiffness, Joint swelling NEUROLOGIC/PSYCHIATRIC: Negative for: Weakness, Paralysis, Numbness, Tingling, Tremor, Nervousness or anxiety, Depressed mood, Memory loss SKIN: Negative for: Rash, Itching HEMATOLOGICAL/LYMPHATIC: Negative for: Easy bruising, Easy bleeding ENDOCRINE: Negative for: Heat or Cold Intolerance, Excessive Sweating, Frequent Urination, Frequent Thirst PHYSICAL EXAMINATION: General: Well appearing, in no acute distress, speaking in complete sentences. Neck: No jugular venous distention, no carotid bruits, carotids have a normal upstroke Lungs: Clear to auscultation bilaterally, no wheezing or rhonchi. Heart: Regular rhythm, S1, S2 normal, no S3, no S4, no heaves, no rub and no murmur, right chest pacemaker present skin intact, no discoloration Abdomen: Soft, nontender, bowel sounds normal Extremities: No peripheral edema . Grade 2/4 distal pulses bilaterally. Neuro: Oriented to person, place and time, alert, cooperative CARDIOVASCULAR MEDICINE TESTING: Reviewed VS, labs, previous cardiac testing Vitals 06/26/2021 09/19/2021 11/28/2021 07/23/2022 09/10/2022 09/08/2023 SITTING SYSTOLIC 130 134 136 136 148 130 SITTING DIASTOLIC 68 67 64 66 86 64 PULSE 68 8 (more content not included)... Normal [facility] [id number] 09-08-2023 ECG01 Ventricular Rate : 6 2 BPM Atrial Rate : 62 BPM P-R Interval : 194 ms QRS Duration : 76 ms Q-T Interval : 424 ms QTC Calculation(Bazett) : 430 ms Calculated P [place] : 57 degrees Calculated R [place] : 70 degrees Calculated T [place] : 76 degrees ATRIAL-PACED RHYTHM Confirmed by KALIN AGUILA MD ([id number]) on 09/12/2023 10:29:58 PM NAME : CASSI RODRIGEZ PID : [id number] : 1950 Gender : Female Race : ORD : Procedure Date : Sep 08 2023 15:00:29 Edit Date : Sep 12 2023 22:29:59 Diagnosis: ATRIAL-PACED RHYTHM Confirmed by KALIN AGUILA MD ([id number]) on 09/12/2023 10:29:58 PM Test Reason : Location : 192 : AVCRD Overread By : KALIN AGUILA MD Edited By : KALIN AGUILA MD Referred By : , Acquired by : , Normal [facility] ECG01 Ventricular Rate : 6 4 BPM Atrial Rate : 64 BPM P-R Interval : 200 ms QRS Duration : 80 ms Q-T Interval : 406 ms QTC Calculation(Bazett) : 418 ms Calculated P [place] : 94 degrees Calculated R [place] : 94 degrees Calculated T [place] : 83 degrees SUSPECT ARM LEAD REVERSAL, PLEASE REPEAT ATRIAL-PACED RHYTHM RIGHT AXIS LOW VOLTAGE QRS, CONSIDER PULMONARY DISEASE, PERICARDIAL EFFUSION, OR NORMAL VARIANT ABNORMAL ECG Confirmed by KALIN AGUILA MD ([id number]) on 09/12/2023 10:29:06 PM NAME : CASSI RODRIGEZ PID : [id number] : 1950 Gender : Female Race : ORD : Procedure Date : Sep 08 2023 14:58:41 Edit Date : Sep 12 2023 22:29:09 Diagnosis: SUSPECT ARM LEAD REVERSAL, PLEASE REPEAT ATRIAL-PACED RHYTHM RIGHT AXIS LOW VOLTAGE QRS, CONSIDER PULMONARY DISEASE, PERICARDIAL EFFUSION, OR NORMAL VARIANT ABNORMAL ECG Confirmed by KALIN AGUILA MD ([id number]) on 09/12/2023 10:29:06 PM Test Reason : Location : 192 : AVCRD Overread By : KALIN AGUILA MD Edited By : KALIN AGUILA MD Referred By : , Acquired by : , Normal [facility] No Panel Informationon 09-08 BLANK _ [facility] Implant Date 05/22/2015 [facility] Model 5076 [employer]Sure[employer] [facility] CHECKon AV Delay Adaptive Paced Minimum (ms) 180 ms [facility] AV Delay Adaptive Sensed Minimum (ms) 150 ms [facility] AV Delay Adaptive Status DISABLED [facility] Battery Voltage (volts) 2.94 V [facility] Godfrey RA Pacing Amplitude (volts) 1.5 V [facility] Godfrey RA Pacing Polarity BI [facility] Godfrey RA Pacing Pulse Width (ms) 0.4 ms [facility] Godfrey RA Sensing Amplitude (mvolts) 0.3 mV [facility] Godfrey RA Sensing Blanking Period (ms) 150 ms [facility] Godfrey RA Sensing Polarity BI [facility] Godfrey RA Sensing Refractory Period (ms) Auto [facility] Godfrey RV Pacing Amplitude (volts) 2 V [facility] Godfrey RV Pacing Polarity BI [facility] Godfrey RV Pacing Pulse Width (ms) 0.4 ms [facility] Godfrey RV Sensing Amplitude (mvolts) 0.9 mV [facility] Godfrey RV Sensing Blanking Period (ms) 200 ms [facility] Godfrey RV Sensing Polarity BI [facility] Hysteresis Rate (bpm) DISABLED [facility] Lead1 Mfg MDT [facility] Lead2 Mfg MDT [facility] Location RV [facility] Location RA [facility] Lower Rate (bpm) 60 {beats}/min [facility] Max Sensor Rate (bmp) 130 {beats}/min [facility] Model [id number] COBOS [facility] PM-Device Mfg MDT [facility] PM-Percent Pacing (A) 99.4 % [facility] PM-Percent Pacing (V) 0.24 % [facility] PM-PMT Intervention ENABLED [facility] PM-PVC Intervention ENABLED [facility] PM-Rate Modulation Acceleration Reaction 30 s [facility] PM-Rate Modulation ADL Rate (bpm) 100 {beats}/min [facility] PM-Rate Modulation Deceleration Exercise [facility] PM-Rate Modulation Threshold MediumLow [facility] RA Bipolar Impedance ohms 456 ohm [facility] RA Unipolar Impedance ohms 418 ohm [facility] RV Bipolar Impedance ohms 551 ohm [facility] RV Unipolar Impedance 532 ohm [facility] Serial Number [id number] [facility] Serial Number [id number] [facility] Serial Number [id number] [facility] Thresh RA Capture Amplitude (volts) 0.5 V [facility] Thresh RA Capture Duration (ms) 0.4 ms [facility] Thresh RA Sensing Amplitude (mvolts) 1.5 mV [facility] Thresh RV Capture Amplitude (volts) 0.75 V [facility] Thresh RV Capture Duration (ms) 0.4 ms [facility] Thresh RV Sensing Amplitude (mvolts) 13.125 mV [facility] Tracking Rate (bpm) 130 {beats}/min [facility] Complete Blood Count Auto Di ffon 08-12-2023 Basophils (Bld) [#/Vol] 0.0 10*3/uL Normal 0.0-0.2 [facility] Comment on above: Order Comment: Reaso n for Exam Lumbar spondylosis;Postoperative wound infection Result Comment: PERF ORMED BY: [place] [address] PATHOLOGIST DIRECTOR PHARMACEUTICAL LELE FALK M.D. Performed By: #### C BC, BMP #### [address] Basophils/100 WBC (Bld) 0.5 % Normal . [facility] Comment on above: Order Comment: Reaso n for Exam Lumbar spondylosis;Postoperative wound infection Performed By: #### C BC, BMP #### [facility] [address] Eosinophils (Bld) [#/Vol] 0.2 10*3/uL Normal 0.0-0.45 [facility] Comment on above: Order Comment: Reaso n for Exam Lumbar spondylosis;Postoperative wound infection Performed By: #### C BC, BMP #### [facility] [address] Eosinophils/100 WBC (Bld) 4.4 % Normal . [facility] Comment on above: Order Comment: Reaso n for Exam Lumbar spondylosis;Postoperative wound infection Performed By: #### C BC, BMP #### [address] Erythrocyte distribution width (RBC) [Ratio] 13.3 % Normal 11.9-15.3 [facility] Comment on above: Order Comment: Reaso n for Exam Lumbar spondylosis;Postoperative wound infection Performed By: #### C BC, BMP #### [address] Hematocrit (Bld) [Volume fraction] 28.8 % Low 34.0-46.4 [facility] Comment on above: Order Comment: Reaso n for Exam Lumbar spondylosis;Postoperative wound infection Performed By: #### C BC, BMP #### [address] Hemoglobin (Bld) [Mass/Vol] 9.6 g/dL Low 11.8-15.4 [facility] Comment on above: Order Comment: Reaso n for Exam Lumbar spondylosis;Postoperative wound infection Performed By: #### C BC, BMP #### [address] Lymphocytes (Bld) [#/Vol] 0.6 10*3/uL Low 1.00-4.8 [facility] Comment on above: Order Comment: Reaso n for Exam Lumbar spondylosis;Postoperative wound infection Performed By: #### C BC, BMP #### [address] Lymphocytes/100 WBC (Bld) 14.8 % Normal . [facility] Comment on above: Order Comment: Reaso n for Exam Lumbar spondylosis;Postoperative wound infection Performed By: #### C BC, BMP #### [address] MCH (RBC) [Entitic mass] 31.9 pg Normal 24.7-34.3 [facility] Comment on above: Order Comment: Reaso n for Exam Lumbar spondylosis;Postoperative wound infection Performed By: #### C BC, BMP #### [address] MCV (RBC) [Entitic vol] 95.0 fL Normal 80-100 [facility] Comment on above: Order Comment: Reaso n for Exam Lumbar spondylosis;Postoperative wound infection Performed By: #### C BC, BMP #### [place] [address] [facility] Mean Corpuscular HGB Conc 33.5 g/dL Normal 32.0-35.0 [facility] Comment on above: Order Comment: Reaso n for Exam Lumbar spondylosis;Postoperative wound infection Performed By: #### C BC, BMP #### [facility] [address] Monocytes (Bld) [#/Vol] 0.3 10*3/uL Normal 0.0-0.8 [facility] Comment on above: Order Comment: Reaso n for Exam Lumbar spondylosis;Postoperative wound infection Performed By: #### C BC, BMP #### [facility] [address] [place] [address] [place] Monocytes/100 WBC (Bld) 7.5 % Normal . [facility] Comment on above: Order Comment: Reaso n for Exam Lumbar spondylosis;Postoperative wound infection Performed By: #### C BC, BMP #### [facility] [address] [place] [address] [place] Neutrophils (Bld) [#/Vol] 3.1 10*3/uL Normal 1.8-7.7 [facility] Comment on above: Order Comment: Reaso n for Exam Lumbar spondylosis;Postoperative wound infection Performed By: #### C BC, BMP #### [facility] [address] Neutrophils/100 WBC (Bld) 72.8 % Normal . [facility] Comment on above: Order Comment: Reaso n for Exam Lumbar spondylosis;Postoperative wound infection Performed By: #### C BC, BMP #### [facility] [address] [place] [address] [place] NRBC% 0.1 /100{WBC} Normal 0-0.5 [facility] Comment on above: Order Comment: Reaso n for Exam Lumbar spondylosis;Postoperative wound infection Performed By: #### C BC, BMP #### [facility] [address] [place] [address] [place] Platelet mean volume (Bld) [Entitic vol] 7.7 fL Normal 6.3-10.7 [facility] Comment on above: Order Comment: Reaso n for Exam Lumbar spondylosis;Postoperative wound infection Performed By: #### C BC, BMP #### [facility] [address] Platelets (Bld) [#/Vol] 258 10*3/uL Normal 150-450 [facility] Comment on above: Order Comment: Reaso n for Exam Lumbar spondylosis;Postoperative wound infection Performed By: #### C BC, BMP #### [address] RBC (Bld) [#/Vol] 3.03 10*6/uL Low 3.60-5.00 [facility] Comment on above: Order Comment: Reaso n for Exam Lumbar spondylosis;Postoperative wound infection Performed By: #### C BC, BMP #### [address] WBC (Bld) [#/Vol] 4.3 10*3/uL Normal 3.8-11.6 [facility] Comment on above: Order Comment: Reaso n for Exam Lumbar spondylosis;Postoperative wound infection Performed By: #### C BC, BMP #### [address] Partial Thromboplastin Timeo n 08-12-2023 aPTT Coag (Bld) [Time] 46.9 s High 25.1-36.5 [facility] Comment on above: Order Comment: Reaso n for Exam Lumbar spondylosis;Postoperative wound infection List the anticoagulant: ASPIRIN Result Comment: A he matocrit value greater than 55% may lead to inaccurate results in coagulation testing. Patients having hematocrit values >55% require a special collection tube for coagulation studies. Please contact the laboratory at [phone] for redraw instructions. PERFORMED BY: [place] [address] PATHOLOGIST DIRECTOR PHARMACEUTICAL LELE FALK M.D. Performed By: #### C BC, BMP #### [address] Prothrombin Time INRon 08-12 INR Coag (PPP) [Relative time] 2.5 {INR} Normal [facility] Comment on above: Order Comment: Reaso n for Exam Lumbar spondylosis;Postoperative wound infection List the anticoagulant: ASPIRIN Result Comment: INR Therapeutic Range A) Pre- and Peroperative OAT started two weeks before surgery. NOT HIP SURGERY: 1.5 - 2.5 HIP SURGERY: 2 - 3 B) Primary and secondary prevention of venous THROMBOSIS: 2 - 3 C) Active venous thrombosis, pulmonary embolism and prevention of recurrent venous thrombosis: 2 - 3 D) Prevention of arterial thromboembolism including patients with mechanical heart valves: 3 - 4.5 Performed By: #### C BC, BMP #### [facility] [address] PT Coag (PPP) [Time] 29.5 s High 9.0-12.9 [facility] Comment on above: Order Comment: Reaso n for Exam Lumbar spondylosis;Postoperative wound infection List the anticoagulant: ASPIRIN Result Comment: A he matocrit value greater than 55% may lead to inaccurate results in coagulation testing. Patients having hematocrit values >55% require a special collection tube for coagulation studies. Please contact the laboratory at [phone] for redraw instructions. Performed By: #### C BC, BMP #### [address] Basic Metabolic Panelon 09-2 Anion gap [Moles/Vol] 7.2 mmol/L Normal 6.0-15.0 [facility] Comment on above: Performed By: #### C BC, BMP #### [facility] [address] Calcium [Mass/Vol] 8.1 mg/dL Low 8.6-10.3 [facility] Comment on above: Performed By: #### C BC, BMP #### [facility] [address] [place] [id number] [place] Chloride [Moles/Vol] 111 mmol/L High 98-107 [facility] Comment on above: Performed By: #### C BC, BMP #### [facility] [address] CO2 [Moles/Vol] 25.2 mmol/L Normal 21.0-31.0 [facility] Comment on above: Performed By: #### C BC, BMP #### [facility] [address] [place] [address] [place] Creatinine [Mass/Vol] 1.43 mg/dL High 0.60-1.20 [facility] Comment on above: Performed By: #### C BC, BMP #### [facility] [address] [place] [address] [place] Creatinine Clr Calc Pharmacy 38.09 [facility] Comment on above: Result Comment: PERF ORMED BY: [facility] [address] [place] [address] PATHOLOGIST DIRECTOR PHARMACEUTICAL LELE FALK M.D. Performed By: #### C BC, BMP #### [facility] [address] [place] [address] [place] GFR/1.73 sq M.predicted MDRD (S/P/Bld) [Vol rate/Area] 38.727 mL/min/{1.73_m2} [facility] Comment on above: Performed By: #### C BC, BMP #### [facility] [address] [place] [address] [place] Glucose [Mass/Vol] 121 mg/dL High 70-100 [facility] Comment on above: Result Comment: [place] Glucose Reference Range is dependent on time and content of last meal. Glucose of more than 200 mg/dL in a nonstressed, ambulatory subject supports the diagnosis of Diabetes Mellitus. ADA recommended reference range Performed By: #### C BC, BMP #### [facility] [address] [place] [address] [place] Potassium [Moles/Vol] 4.4 mmol/L Normal 3.5-5.1 [facility] Comment on above: Performed By: #### C BC, BMP #### [facility] [address] Sodium [Moles/Vol] 139 mmol/L Normal 136-145 [facility] Comment on above: Performed By: #### C BC, BMP #### [facility] [address] Urea nitrogen [Mass/Vol] 25 mg/dL Normal 7-25 [facility] Comment on above: Performed By: #### C SUKUMAR, BMP #### [facility] [address] Basophils Auto (Bld) [#/Vol] Ordered By: Niki Blades on 08-05-2023 Basophils (Bld) [#/Vol] 0.0 10*3/uL 0.0-0.2 [facility] Basophils/100 WBC Auto (Bld) Ordered By: Niki Blades on 08-05-2023 Basophils/100 WBC (Bld) 0.2 % . [facility] Calcium [Mass/volume] in Ser um or PlasmaOrdered By: Niki Blades on 08-05-2023 Calcium [Mass/Vol] 8.1 mg/dL 8.6-10.3 [facility] Carbon dioxide, total [Moles /volume] in Serum or PlasmaOrdered By: Niki Blades on 08-05-2023 CO2 [Moles/Vol] 25.2 mmol/L 21.0-31.0 [facility] Chloride [Moles/volume] in S akila or PlasmaOrdered By: Niki Blades on 08-05-2023 Chloride [Moles/Vol] 111 mmol/L 98-107 [facility] Complete Blood Count Auto Di ffon 08-05-2023 Basophils (Bld) [#/Vol] 0.0 10*3/uL Normal 0.0-0.2 [facility] Comment on above: Result Comment: PERF ORMED BY: [facility] [address] [place] [address] PATHOLOGIST DIRECTOR PHARMACEUTICAL LELE FALK M.D. Performed By: #### C SUKUMAR, BMP #### [facility] [address] [place] [address] Basophils/100 WBC (Bld) 0.2 % Normal . [facility] Comment on above: Performed By: #### C SUKUMAR, BMP #### [facility] [address] [place] [address] [place] Eosinophils (Bld) [#/Vol] 0.1 10*3/uL Normal 0.0-0.45 [facility] Comment on above: Performed By: #### C BC, BMP #### [address] Eosinophils/100 WBC (Bld) 1.7 % Normal . [facility] Comment on above: Performed By: #### C BC, BMP #### [address] Erythrocyte distribution width (RBC) [Ratio] 13.5 % Normal 11.9-15.3 [facility] Comment on above: Performed By: #### C BC, BMP #### [address] Hematocrit (Bld) [Volume fraction] 29.9 % Low 34.0-46.4 [facility] Comment on above: Performed By: #### C BC, BMP #### [address] Hemoglobin (Bld) [Mass/Vol] 10.0 g/dL Low 11.8-15.4 [facility] Comment on above: Performed By: #### C BC, BMP #### [address] Lymphocytes (Bld) [#/Vol] 0.9 10*3/uL Low 1.00-4.8 [facility] Comment on above: Performed By: #### C BC, BMP #### [address] Lymphocytes/100 WBC (Bld) 11.8 % Normal . [facility] Comment on above: Performed By: #### C BC, BMP #### [address] MCH (RBC) [Entitic mass] 31.9 pg Normal 24.7-34.3 [facility] Comment on above: Performed By: #### C BC, BMP #### [address] MCV (RBC) [Entitic vol] 95.1 fL Normal 80-100 [facility] Comment on above: Performed By: #### C BC, BMP #### [facility] [address] Mean Corpuscular HGB Conc 33.5 g/dL Normal 32.0-35.0 [facility] Comment on above: Performed By: #### C BC, BMP #### [facility] [address] Monocytes (Bld) [#/Vol] 0.7 10*3/uL Normal 0.0-0.8 [facility] Comment on above: Performed By: #### C BC, BMP #### [place] [address] [place] Monocytes/100 WBC (Bld) 9.2 % Normal . [facility] Comment on above: Performed By: #### C BC, BMP #### [facility] [address] [place] [address] Neutrophils (Bld) [#/Vol] 5.6 10*3/uL Normal 1.8-7.7 [facility] Comment on above: Performed By: #### C BC, BMP #### [address] Neutrophils/100 WBC (Bld) 77.1 % Normal . [facility] Comment on above: Performed By: #### C BC, BMP #### [facility] [address] [place] [address] [place] NRBC% 0.4 /100{WBC} Normal 0-0.5 [facility] Comment on above: Performed By: #### C BC, BMP #### [address] Platelet mean volume (Bld) [Entitic vol] 7.6 fL Normal 6.3-10.7 [facility] Comment on above: Performed By: #### C BC, BMP #### [place] [address] [place] Platelets (Bld) [#/Vol] 147 10*3/uL Low 150-450 [facility] Comment on above: Performed By: #### C BC, BMP #### [facility] [address] RBC (Bld) [#/Vol] 3.14 10*6/uL Low 3.60-5.00 [facility] Comment on above: Performed By: #### C BC, BMP #### [facility] [address] WBC (Bld) [#/Vol] 7.3 10*3/uL Normal 3.8-11.6 [facility] Comment on above: Performed By: #### C SUKUMAR, BMP #### [facility] [address] Creatinine [Mass/volume] in Serum or PlasmaOrdered By: Niki Martínez on 08-05-2023 Creatinine [Mass/Vol] 1.43 mg/dL 0.60-1.20 [facility] Eosinophils Auto (Bld) [#/Vo l]Ordered By: Niki Martínez on 08-05-2023 Eosinophils (Bld) [#/Vol] 0.1 10*3/uL 0.0-0.45 [facility] Eosinophils/100 WBC Auto (Bl d)Ordered By: Niki Martínez on 08-05-2023 Eosinophils/100 WBC (Bld) 1.7 % . [facility] Erythrocyte distribution wid th Auto (RBC) [Ratio]Ordered By: Niki Martínez on 08-05-2023 Erythrocyte distribution width (RBC) [Ratio] 13.5 % 11.9-15.3 [facility] Glucose [Mass/volume] in Ser um or PlasmaOrdered By: Niki Martínez on 08-05-2023 Glucose [Mass/Vol] 121 mg/dL 70-100 [facility] Comment on above: ADA recommended refe rence rangeRandom Glucose Reference Range is dependent on time and content of last meal. Glucose of more than 200 mg/dL in a nonstressed, ambulatory subject supports the diagnosis of Diabetes Mellitus. Hematocrit Auto (Bld) [Volum e fraction]Ordered By: Niki Martínez on 08-05-2023 Hematocrit (Bld) [Volume fraction] 29.9 % 34.0-46.4 [facility] Hemoglobin [Mass/volume] in BloodOrdered By: Niki Blades on 08-05-2023 Hemoglobin (Bld) [Mass/Vol] 10.0 g/dL 11.8-15.4 [facility] Leukocytes [#/volume] correc tanesha for nucleated erythrocytes in Blood by Automated counOrdered By: Niki Blades on 08-05-2023 WBC corrected for nucl RBC Auto (Bld) [#/Vol] 7.3 10*3/uL 3.8-11.6 [facility] Lymphocytes Auto (Bld) [#/Vo l]Ordered By: Niki Blades on 08-05-2023 Lymphocytes (Bld) [#/Vol] 0.9 10*3/uL 1.00-4.8 [facility] Lymphocytes/100 WBC Auto (Bl d)Ordered By: Niki Blades on 08-05-2023 Lymphocytes/100 WBC (Bld) 11.8 % . [facility] MCH Auto (RBC) [Entitic mass ]Ordered By: Niki Blades on 08-05-2023 MCH (RBC) [Entitic mass] 31.9 pg 24.7-34.3 [facility] MCHC Auto (RBC) [Mass/Vol]Or dered By: Niki Blades on 08-05-2023 MCHC (RBC) [Mass/Vol] 33.5 g/dL 32.0-35.0 [facility] MCV Auto (RBC) [Entitic vol] Ordered By: Niki Blades on 08-05-2023 MCV (RBC) [Entitic vol] 95.1 fL 80-100 [facility] Monocytes Auto (Bld) [#/Vol] Ordered By: Niki Blades on 08-05-2023 Monocytes (Bld) [#/Vol] 0.7 10*3/uL 0.0-0.8 [facility] Monocytes/100 WBC Auto (Bld) Ordered By: Niki Blades on 08-05-2023 Monocytes/100 WBC (Bld) 9.2 % . [facility] Neutrophils Auto (Bld) [#/Vo l]Ordered By: Niki Blades on 08-05-2023 Neutrophils (Bld) [#/Vol] 5.6 10*3/uL 1.8-7.7 [facility] Neutrophils/100 WBC Auto (Bl d)Ordered By: Niki Blades on 08-05-2023 Neutrophils/100 WBC (Bld) 77.1 % . [facility] No Panel InformationOrdered By: Niki Blades on 08-05-2023 Estimated GFR (CKD-EPI) 38.727 mL/Min [facility] Creatinine Clearance (Chem 38.09 [facility] Nucleated erythrocytes [Pres ence] in Blood by Automated countOrdered By: Niki Blades on 08-05-2023 Nucleated RBC Auto Ql (Bld) 0.4 /100{WBC} 0-0.5 [facility] Platelet mean volume Auto (B ld) [Entitic vol]Ordered By: Niki Blades on 08-05-2023 Platelet mean volume (Bld) [Entitic vol] 7.6 fL 6.3-10.7 [facility] Platelets Auto (Bld) [#/Vol] Ordered By: Niki Blades on 08-05-2023 Platelets (Bld) [#/Vol] 147 10*3/uL 150-450 [facility] Potassium [Moles/volume] in Serum or PlasmaOrdered By: Niki Blades on 08-05-2023 Potassium [Moles/Vol] 4.4 mmol/L 3.5-5.1 [facility] RBC Auto (Bld) [#/Vol]Ordere d By: Niki Blades on 08-05-2023 RBC (Bld) [#/Vol] 3.14 10*6/uL 3.60-5.00 [facility] Serum or plasma anion gap de terminationOrdered By: Niki Blades on 08-05-2023 Anion gap [Moles/Vol] 7.2 mmol/L 6.0-15.0 [facility] Sodium [Moles/volume] in Ser um or PlasmaOrdered By: Niki Blades on 08-05-2023 Sodium [Moles/Vol] 139 mmol/L 136-145 [facility] Urea nitrogen [Mass/volume] in Serum or PlasmaOrdered By: Niki Martínez on 08-05-2023 Urea nitrogen [Mass/Vol] 25 mg/dL 7 [facility] WBC Auto (Bld) [#/Vol]Ordere d By: Niki Blades on 08-05-2023 WBC (Bld) [#/Vol] 7.3 10*3/uL 3.8-11.6 [facility] Basic Metabolic Panelon 07-17 Anion gap [Moles/Vol] 7.9 mmol/L Normal 6.0-15.0 [facility] Comment on above: Performed By: #### B MP, CBC #### [facility] [address] Calcium [Mass/Vol] 7.4 mg/dL Low 8.6-10.3 [facility] Comment on above: Performed By: #### B MP, CBC #### [facility] [address] [place] [address] [place] Chloride [Moles/Vol] 110 mmol/L High 98-107 [facility] Comment on above: Performed By: #### B MP, CBC #### [facility] [address] [place] [address] [place] CO2 [Moles/Vol] 23.9 mmol/L Normal 21.0-31.0 [facility] Comment on above: Performed By: #### B MP, CBC #### [facility] [address] [place] [id number] [place] Creatinine [Mass/Vol] 1.48 mg/dL High 0.60-1.20 [facility] Comment on above: Performed By: #### B MP, CBC #### [facility] [address] [place] [address] [place] Creatinine Clr Calc Pharmacy 34.66 Normal [facility] Comment on above: Result Comment: PERF ORMED BY: [place] [address] PATHOLOGIST DIRECTOR PHARMACEUTICAL LELE FALK M.D. Performed By: #### B MP, CBC #### [facility] [address] [place] [address] [place] GFR/1.73 sq M.predicted MDRD (S/P/Bld) [Vol rate/Area] 37.163 mL/min/{1.73_m2} Normal [facility] Comment on above: Performed By: #### B MP, CBC #### [facility] [address] Glucose [Mass/Vol] 129 mg/dL High 70-100 [facility] Comment on above: Result Comment: [facility] Glucose Reference Range is dependent on time and content of last meal. Glucose of more than 200 mg/dL in a nonstressed, ambulatory subject supports the diagnosis of Diabetes Mellitus. ADA recommended reference range Performed By: #### B MP, CBC #### [facility] [address] Potassium [Moles/Vol] 4.8 mmol/L Normal 3.5-5.1 [facility] Comment on above: Performed By: #### B MP, CBC #### [facility] [address] Sodium [Moles/Vol] 137 mmol/L Normal 136-145 [facility] Comment on above: Performed By: #### B MP, CBC #### [facility] [address] Urea nitrogen [Mass/Vol] 24 mg/dL Normal 7-25 [facility] Comment on above: Performed By: #### B MP, CBC #### [facility] [address] Complete Blood Count Auto Di ffon 08-04-2023 Basophils (Bld) [#/Vol] 0.0 10*3/uL Normal 0.0-0.2 [facility] Comment on above: Result Comment: PERF ORMED BY: [place] [address] PATHOLOGIST DIRECTOR PHARMACEUTICAL LELE FALK M.D. Performed By: #### B MP, CBC #### [facility] [address] [place] [address] [place] Basophils/100 WBC (Bld) 0.0 % Normal . [facility] Comment on above: Performed By: #### B MP, CBC #### [facility] [address] Eosinophils (Bld) [#/Vol] 0.0 10*3/uL Normal 0.0-0.45 [facility] Comment on above: Performed By: #### B MP, CBC #### [facility] [address] Eosinophils/100 WBC (Bld) 0.0 % Normal . [facility] Comment on above: Performed By: #### B MP, CBC #### [address] Erythrocyte distribution width (RBC) [Ratio] 13.6 % Normal 11.9-15.3 [facility] Comment on above: Performed By: #### B MP, CBC #### [facility] [address] [place] [address] Hematocrit (Bld) [Volume fraction] 31.5 % Low 34.0-46.4 [facility] Comment on above: Performed By: #### B MP, CBC #### [address] Hemoglobin (Bld) [Mass/Vol] 10.5 g/dL Low 11.8-15.4 [facility] Comment on above: Performed By: #### B MP, CBC #### [facility] [address] [place] [address] [place] Lymphocytes (Bld) [#/Vol] 0.5 10*3/uL Low 1.00-4.8 [facility] Comment on above: Performed By: #### B MP, CBC #### [facility] [address] [place] [address] [place] Lymphocytes/100 WBC (Bld) 4.4 % Normal . [facility] Comment on above: Performed By: #### B MP, CBC #### [facility] [address] MCH (RBC) [Entitic mass] 31.6 pg Normal 24.7-34.3 [facility] Comment on above: Performed By: #### B MP, CBC #### [facility] [address] MCV (RBC) [Entitic vol] 94.8 fL Normal 80-100 [facility] Comment on above: Performed By: #### B MP, CBC #### [address] Mean Corpuscular HGB Conc 33.3 g/dL Normal 32.0-35.0 [facility] Comment on above: Performed By: #### B MP, CBC #### [address] Monocytes (Bld) [#/Vol] 0.5 10*3/uL Normal 0.0-0.8 [facility] Comment on above: Performed By: #### B MP, CBC #### [address] Monocytes/100 WBC (Bld) 4.0 % Normal . [facility] Comment on above: Performed By: #### B MP, CBC #### [address] Neutrophils (Bld) [#/Vol] 10.4 10*3/uL High 1.8-7.7 [facility] Comment on above: Performed By: #### B MP, CBC #### [address] Neutrophils/100 WBC (Bld) 91.6 % Normal . [facility] Comment on above: Performed By: #### B MP, CBC #### [address] NRBC% 0.1 /100{WBC} Normal 0-0.5 [facility] Comment on above: Performed By: #### B MP, CBC #### [address] Platelet mean volume (Bld) [Entitic vol] 7.8 fL Normal 6.3-10.7 [facility] Comment on above: Performed By: #### B MP, CBC #### [facility] [address] Platelets (Bld) [#/Vol] 172 10*3/uL Normal 150-450 [facility] Comment on above: Performed By: #### B MP, CBC #### [facility] [address] [place] [address] RBC (Bld) [#/Vol] 3.32 10*6/uL Low 3.60-5.00 [facility] Comment on above: Performed By: #### B MP, CBC #### [address] WBC (Bld) [#/Vol] 11.4 10*3/uL Normal 3.8-11.6 [facility] Comment on above: Performed By: #### B MP, CBC #### [address] ABO/Rh Retypeon 08-03-2023 ABO/RH Recheck Result Positive Normal [facility] Comment on above: Result Comment: PERF ORMED BY: [place] [address] PATHOLOGIST DIRECTOR PHARMACEUTICAL LELE FALK M.D. Activated partial thrombopla stin time (aPTT) in platelet poor plasma by coagulation aOrdered By: Cj Gamboa on 08-03-2023 aPTT Coag (PPP) [Time] 44.3 s 25.1-36.5 [facility] Comment on above: A hematocrit value g reater than 55% may lead to inaccurate results in coagulation testing. Patients having hematocrit values >55% require a special collection tube for coagulation studies. Please contact the laboratory at [phone] for redraw instructions. INR in Platelet poor plasma by Coagulation assayOrdered By: Cj Gamboa on 08-03-2023 INR Coag (PPP) [Relative time] 2.1 {INR} [facility] Comment on above: INR Therapeutic Rang e A) Pre- and Peroperative OAT started two weeks before surgery. NOT HIP SURGERY: 1.5 - 2.5 HIP SURGERY: 2 - 3B) Primary and secondary prevention of venous THROMBOSIS: 2 - 3C) Active venous thrombosis, pulmonary embolismand prevention of recurrent venous thrombosis: 2 - 3D) Prevention of arterial thromboembolismincluding patients with mechanical heart valves: 3 - 4.5 [facility] 08-03-2023 L ------ Specimen: [id number] Received: 08/03/23 Status: SHARON Regaladotruman Num: [id number] Spec Type: Surgical Subm Dr: Niki Martínez MD Tissues: A Gross Only (BACK FB) Procedures: Level 1 Gross Age/ Patient Sex Location Account Attending Physician Cassi Rodrigez 73/F 4N [id number] Niki Martínez MD SPEC NUM: [id number] RECD: 08/03/23 STATUS: SHARON RUSSO NUM: [id number] GRACIA: 08/03/23- SUBM DR: Niki Martínez MD ENTERED: 08/03/[address] [facility] DR: SPEC TYPE: Surgical DEPT: S ORDERED: Level 1 Gross ORDERED: Level 1 Gross Pathological Diagnosis Foreign body, removal: - Gross examination only, see the gross description Clinical Information Stenosis Gross Description Received fresh labeled with the patient's name, date of and foreign body is a 1.0 x 0.7 x 0.1 cm folded plastic object that appears similar to surgical tape. A gross photo is taken. Gross examination only. CPT Codes 57020 Gross Photo Specimen: [id number] Received: 08/03/23 Status: SHARON Alanna Num: [id number] Spec Type: Surgical Subm Dr: Niki Martínez MD Tissues: A Gross Only (BACK FB) Procedures: Level 1 Gross Patient: Cassi Rodrigez [id number] (Continued) Signed (signature on file) Prashanth Wynn MD 08/05/23 0922 Normal [facility] Partial Thromboplastin Timeo n 08-03-2023 aPTT Coag (Bld) [Time] 44.3 s High 25.1-36.5 [facility] Comment on above: Result Comment: A he matocrit value greater than 55% may lead to inaccurate results in coagulation testing. Patients having hematocrit values >55% require a special collection tube for coagulation studies. Please contact the laboratory at [phone] for redraw instructions. PERFORMED BY: [place] [address] PATHOLOGIST DIRECTOR PHARMACEUTICAL LELE FALK M.D. Performed By: #### C , BMP #### [address] Prothrombin Time INRon 08-03 INR Coag (PPP) [Relative time] 2.1 {INR} Normal [facility] Comment on above: Result Comment: INR Therapeutic Range A) Pre- and Peroperative OAT started two weeks before surgery. NOT HIP SURGERY: 1.5 - 2.5 HIP SURGERY: 2 - 3 B) Primary and secondary prevention of venous THROMBOSIS: 2 - 3 C) Active venous thrombosis, pulmonary embolism and prevention of recurrent venous thrombosis: 2 - 3 D) Prevention of arterial thromboembolism including patients with mechanical heart valves: 3 - 4.5 Performed By: #### C BC, BMP #### [facility] [address] [place] [id number] [facility] PT Coag (PPP) [Time] 24.8 s High 9.0-12.9 [facility] Comment on above: Result Comment: A he matocrit value greater than 55% may lead to inaccurate results in coagulation testing. Patients having hematocrit values >55% require a special collection tube for coagulation studies. Please contact the laboratory at [phone] for redraw instructions. Performed By: #### C BC, BMP #### [address] [address] [facility] Prothrombin time (PT)Ordered By: Cj Gamboa on 08-03-2023 PT Coag (PPP) [Time] 24.8 s 9.0-12.9 [facility] Comment on above: A hematocrit value g reater than 55% may lead to inaccurate results in coagulation testing. Patients having hematocrit values >55% require a special collection tube for coagulation studies. Please contact the laboratory at [phone] for redraw instructions. Type and Screenon 08-03-2023 ABO and Rh group Nom (Bld) Blood group A Rh(D) positive Normal [facility] XR lumbar spine 1Von 023 XR lumbar spine 1V [facility] [address] [place], [place] [id number] XRay Report Signed Patient: Cassi Rodrigez MR#: [id number] 8 : 1950 Acct:[id number] Age/Sex: 73 / F ADM Date: 08/03/23 Loc: [place] Room: Type: [facility] Attending Dr: Niki Martínez MD Copies to: Niki Martínez MD Ordering Provider: Niki Martínez MD Date of Service: 08/03/23 XR/XR lumbar spine 1V: . PORTABLE LUMBAR SPINE - 1 IMAGE CLINICAL DATA: Intraoperative localization for lumbar decompression. COMPARISON: 06/04/2023 A single lateral spot film of the lumbar spine was obtained. This demonstrates an instrument directed toward the posterior aspect of the L3-4 disc space. There is an interbody fusion device at the lumbosacral junction which was present previously. An IVC filter is seen. Cumulative Air Kerma in mGy: 1.9 mGy Impression dictated by: Paris Phoenix M.D.08/03/2023 9:50 AM Dictation Location: [place] [address] Transcribed By: [facility] 08/03/23949 Dictated By: Paris Phoenix MD 08/03/2347 Signed By: 08/03/23949 Normal [facility] Basic Metabolic Panelon Anion gap [Moles/Vol] 9.3 mmol/L Normal 6.0-15.0 [facility] Comment on above: Performed By: #### C BC, BMP #### [facility] [address] Calcium [Mass/Vol] 8.6 mg/dL Normal 8.6-10.3 [facility] Comment on above: Result Comment: PERF ORMED BY: [place] [address] PATHOLOGIST DIRECTOR PHARMACEUTICAL LELE FALK M.D. Performed By: #### C BC, BMP #### [facility] [address] [place] [address] [place] Chloride [Moles/Vol] 109 mmol/L High 98-107 [facility] Comment on above: Performed By: #### C BC, BMP #### [facility] [address] [place] [id number] [place] CO2 [Moles/Vol] 26.3 mmol/L Normal 21.0-31.0 [facility] Comment on above: Performed By: #### C BC, BMP #### [facility] [address] [place] [id number] [place] Creatinine [Mass/Vol] 1.52 mg/dL High 0.60-1.20 [facility] Comment on above: Performed By: #### C BC, BMP #### [facility] [address] [place] [address] [place] GFR/1.73 sq M.predicted MDRD (S/P/Bld) [Vol rate/Area] 35.992 mL/min/{1.73_m2} Normal [facility] Comment on above: Performed By: #### C BC, BMP #### [facility] [address] [place] [address] [place] Glucose [Mass/Vol] 120 mg/dL High 70-100 [facility] Comment on above: Result Comment: [place] Glucose Reference Range is dependent on time and content of last meal. Glucose of more than 200 mg/dL in a nonstressed, ambulatory subject supports the diagnosis of Diabetes Mellitus. ADA recommended reference range Performed By: #### C BC, BMP #### [facility] [address] Potassium [Moles/Vol] 4.6 mmol/L Normal 3.5-5.1 [facility] Comment on above: Performed By: #### C BC, BMP #### [facility] [address] [place] [address] [place] Sodium [Moles/Vol] 140 mmol/L Normal 136-145 [facility] Comment on above: Performed By: #### C BC, BMP #### [facility] [address] [place] [address] [place] Urea nitrogen [Mass/Vol] 30 mg/dL High 7-25 [facility] Comment on above: Performed By: #### C BC, BMP #### [facility] [address] [place] [address] [place] Basophils Auto (Bld) [#/Vol] Ordered By: Niki Martínez on 07-20-2023 Basophils (Bld) [#/Vol] 0.0 10*3/uL 0.0-0.2 [facility] Basophils/100 WBC Auto (Bld) Ordered By: Niki Martínez on 07-20-2023 Basophils/100 WBC (Bld) 0.6 % . [facility] Bilirubin Test strip Ql (U)O rdered By: Niki Martínez on 07-20-2023 Bilirubin Ql (U) Negative Negative [facility] Calcium [Mass/volume] in Ser um or PlasmaOrdered By: Niki Martínez on 07-20-2023 Calcium [Mass/Vol] 8.6 mg/dL 8.6-10.3 [facility] Carbon dioxide, total [Moles /volume] in Serum or PlasmaOrdered By: Niki Blades on 07-20-2023 CO2 [Moles/Vol] 26.3 mmol/L 21.0-31.0 [facility] Chloride [Moles/volume] in S akila or PlasmaOrdered By: Niki Blades on 07-20-2023 Chloride [Moles/Vol] 109 mmol/L 98-107 [facility] Color Auto (U)Ordered By: Simpson Blades on 07-20-2023 Color (U) Yellow Yellow [facility] Complete Blood Count Auto Di ffon 07-20-2023 Basophils (Bld) [#/Vol] 0.0 10*3/uL Normal 0.0-0.2 [facility] Comment on above: Result Comment: PERF ORMED BY: [place] [address] PATHOLOGIST DIRECTOR PHARMACEUTICAL LELE FALK M.D. Performed By: #### C BC, BMP #### [facility] [address] [place] [address] [place] Basophils/100 WBC (Bld) 0.6 % Normal . [facility] Comment on above: Performed By: #### C BC, BMP #### [facility] [address] [place] [address] [place] Eosinophils (Bld) [#/Vol] 0.3 10*3/uL Normal 0.0-0.45 [facility] Comment on above: Performed By: #### C BC, BMP #### [facility] [address] [place] [address] [place] Eosinophils/100 WBC (Bld) 4.9 % Normal . [facility] Comment on above: Performed By: #### C BC, BMP #### [facility] [address] Erythrocyte distribution width (RBC) [Ratio] 13.5 % Normal 11.9-15.3 [facility] Comment on above: Performed By: #### C BC, BMP #### [facility] [address] Hematocrit (Bld) [Volume fraction] 38.3 % Normal 34.0-46.4 [facility] Comment on above: Performed By: #### C BC, BMP #### [address] Hemoglobin (Bld) [Mass/Vol] 12.6 g/dL Normal 11.8-15.4 [facility] Comment on above: Performed By: #### C BC, BMP #### [address] Lymphocytes (Bld) [#/Vol] 0.7 10*3/uL Low 1.00-4.8 [facility] Comment on above: Performed By: #### C BC, BMP #### [address] Lymphocytes/100 WBC (Bld) 13.8 % Normal . [facility] Comment on above: Performed By: #### C BC, BMP #### [address] MCH (RBC) [Entitic mass] 30.9 pg Normal 24.7-34.3 [facility] Comment on above: Performed By: #### C BC, BMP #### [address] MCV (RBC) [Entitic vol] 93.7 fL Normal 80-100 [facility] Comment on above: Performed By: #### C BC, BMP #### [address] Mean Corpuscular HGB Conc 33.0 g/dL Normal 32.0-35.0 [facility] Comment on above: Performed By: #### C BC, BMP #### [address] Monocytes (Bld) [#/Vol] 0.4 10*3/uL Normal 0.0-0.8 [facility] Comment on above: Performed By: #### C BC, BMP #### [facility] [address] [place] [address] [place] Monocytes/100 WBC (Bld) 6.9 % Normal . [facility] Comment on above: Performed By: #### C BC, BMP #### [facility] [address] Neutrophils (Bld) [#/Vol] 3.8 10*3/uL Normal 1.8-7.7 [facility] Comment on above: Performed By: #### C BC, BMP #### [facility] [address] Neutrophils/100 WBC (Bld) 73.8 % Normal . [facility] Comment on above: Performed By: #### C BC, BMP #### [facility] [address] NRBC% 0.1 /100{WBC} Normal 0-0.5 [facility] Comment on above: Performed By: #### C BC, BMP #### [facility] [address] Platelet mean volume (Bld) [Entitic vol] 7.2 fL Normal 6.3-10.7 [facility] Comment on above: Performed By: #### C BC, BMP #### [facility] [address] [place] [address] [place] Platelets (Bld) [#/Vol] 194 10*3/uL Normal 150-450 [facility] Comment on above: Performed By: #### C BC, BMP #### [facility] [address] [place] [address] [place] RBC (Bld) [#/Vol] 4.09 10*6/uL Normal 3.60-5.00 [facility] Comment on above: Performed By: #### C BC, BMP #### [facility] [address] [place] [address] [place] WBC (Bld) [#/Vol] 5.2 10*3/uL Normal 3.8-11.6 [facility] Comment on above: Performed By: #### C BC, BMP #### [facility] [address] [place] [id number] [facility] Creatinine [Mass/volume] in Serum or PlasmaOrdered By: Niki Martínez on 07-20-2023 Creatinine [Mass/Vol] 1.52 mg/dL 0.60-1.20 [facility] ECG 12 lead ECGon 07-20-2023 ECG 12 lead ECG [facility] [address] [place] [address] Electrocardiograph Report Signed Patient: Cassi Rodrigez MR#: [id number] 8 : 1950 Acct:[id number] Age/Sex: 73 / F ADM Date: 07/20/23 Loc: Room: Type: [facility] Attending Dr: Niki Martínez MD Ordering Provider: Niki Martínez MD Date of Service: 07/20/2304/06/1046 ECG/ECG 12 lead ECG: surgery 08-03-2023 Copies to: Test Reason : Blood Pressure : / mmHG Vent. Rate : 062 BPM Atrial Rate : 062 BPM P-R Int : 150 ms QRS Dur : 084 ms QT Int : 416 ms P-R-T Axes : 040 051 076 degrees QTc Int : 422 ms Electronic atrial pacemaker Low voltage QRS Borderline ECG No previous ECGs available Confirmed by NIKKI SANDOVAL MD ([id number]) on 07/20/2023 11:22:45 AM Referred By: LEE MARTÍNEZ Electronically Signed By:NIKKI SANDOVAL MD Transcribed By: [facility] Signed By Nikki Sandoval MD 0 07/20/23 1122 Normal [facility] Eosinophils Auto (Bld) [#/Vo l]Ordered By: Niki Martínez on 07-20-2023 Eosinophils (Bld) [#/Vol] 0.3 10*3/uL 0.0-0.45 [facility] Eosinophils/100 WBC Auto (Bl d)Ordered By: Niki Martínez on 07-20-2023 Eosinophils/100 WBC (Bld) 4.9 % . [facility] Erythrocyte distribution wid th Auto (RBC) [Ratio]Ordered By: Niki Martínez on 07-20-2023 Erythrocyte distribution width (RBC) [Ratio] 13.5 % 11.9-15.3 [facility] Glucose [Mass/volume] in Ser um or PlasmaOrdered By: Niki Martínez on 07-20-2023 Glucose [Mass/Vol] 120 mg/dL 70-100 [facility] Comment on above: ADA recommended refe rence rangeRandom Glucose Reference Range is dependent on time and content of last meal. Glucose of more than 200 mg/dL in a nonstressed, ambulatory subject supports the diagnosis of Diabetes Mellitus. Hematocrit Auto (Bld) [Volum e fraction]Ordered By: Niki Martínez on 07-20-2023 Hematocrit (Bld) [Volume fraction] 38.3 % 34.0-46.4 [facility] Hemoglobin [Mass/volume] in BloodOrdered By: Niki Martínez on 07-20-2023 Hemoglobin (Bld) [Mass/Vol] 12.6 g/dL 11.8-15.4 [facility] Ketones Auto test strip (U) [Mass/Vol]Ordered By: Niki Martínez on 07-20-2023 Ketones (U) [Mass/Vol] Negative Negative [facility] Leukocytes [#/volume] correc tanesha for nucleated erythrocytes in Blood by Automated counOrdered By: Niki Martínez on 07-20-2023 WBC corrected for nucl RBC Auto (Bld) [#/Vol] 5.2 10*3/uL 3.8-11.6 [facility] Lymphocytes Auto (Bld) [#/Vo l]Ordered By: Niki Martínez on 07-20-2023 Lymphocytes (Bld) [#/Vol] 0.7 10*3/uL 1.00-4.8 [facility] Lymphocytes/100 WBC Auto (Bl d)Ordered By: Niki Martínez on 07-20-2023 Lymphocytes/100 WBC (Bld) 13.8 % . [facility] MCH Auto (RBC) [Entitic mass ]Ordered By: Niki Martínez on 07-20-2023 MCH (RBC) [Entitic mass] 30.9 pg 24.7-34.3 [facility] MCHC Auto (RBC) [Mass/Vol]Or dered By: Niki Martínez on 07-20-2023 MCHC (RBC) [Mass/Vol] 33.0 g/dL 32.0-35.0 [facility] MCV Auto (RBC) [Entitic vol] Ordered By: Niki Martínez on 07-20-2023 MCV (RBC) [Entitic vol] 93.7 fL 80-100 [facility] Monocytes Auto (Bld) [#/Vol] Ordered By: Niki Martínez on 07-20-2023 Monocytes (Bld) [#/Vol] 0.4 10*3/uL 0.0-0.8 [facility] Monocytes/100 WBC Auto (Bld) Ordered By: Niki Martínez on 07-20-2023 Monocytes/100 WBC (Bld) 6.9 % . [facility] Neutrophils Auto (Bld) [#/Vo l]Ordered By: Niki Martínez on 07-20-2023 Neutrophils (Bld) [#/Vol] 3.8 10*3/uL 1.8-7.7 [facility] Neutrophils/100 WBC Auto (Bl d)Ordered By: Niki Martínez on 07-20-2023 Neutrophils/100 WBC (Bld) 73.8 % . [facility] Nitrite Test strip Ql (U)Ord ered By: Niki Martínez on 07-20-2023 Nitrite Ql (U) Negative Negative [facility] No Panel InformationOrdered By: Niki Martínez on 07-20-2023 Estimated GFR (CKD-EPI) 35.992 mL/Min [facility] Creatinine Clearance (Chem N/A [facility] Nucleated erythrocytes [Pres ence] in Blood by Automated countOrdered By: Niki Martínez on 07-20-2023 Nucleated RBC Auto Ql (Bld) 0.1 /100{WBC} 0-0.5 [facility] Platelet mean volume Auto (B ld) [Entitic vol]Ordered By: Niki Martínez on 07-20-2023 Platelet mean volume (Bld) [Entitic vol] 7.2 fL 6.3-10.7 [facility] Platelets Auto (Bld) [#/Vol] Ordered By: Niki Blades on 07-20-2023 Platelets (Bld) [#/Vol] 194 10*3/uL 150-450 [facility] Potassium [Moles/volume] in Serum or PlasmaOrdered By: Niki Blades on 07-20-2023 Potassium [Moles/Vol] 4.6 mmol/L 3.5-5.1 [facility] Protein Auto test strip (U) [Mass/Vol]Ordered By: Niki Blades on 07-20-2023 Protein (U) [Mass/Vol] Negative Negative [facility] RBC Auto (Bld) [#/Vol]Ordere d By: Niki Blades on 07-20-2023 RBC (Bld) [#/Vol] 4.09 10*6/uL 3.60-5.00 [facility] Serum or plasma anion gap de terminationOrdered By: Niki Blades on 07-20-2023 Anion gap [Moles/Vol] 9.3 mmol/L 6.0-15.0 [facility] Sodium [Moles/volume] in Ser um or PlasmaOrdered By: Niki Blades on 07-20-2023 Sodium [Moles/Vol] 140 mmol/L 136-145 [facility] Specific gravity Auto test s trip (U) [Rel density]Ordered By: Niki Blades on 07-20-2023 Specific gravity (U) [Rel density] 1.021 1.001-1.030 [facility] Urea nitrogen [Mass/volume] in Serum or PlasmaOrdered By: Niki Blades on 07-20-2023 Urea nitrogen [Mass/Vol] 30 mg/dL 7-25 [facility] Urinalysison 07-20-2023 Appearance (U) Clear Normal Clear [facility] Comment on above: Order Comment: Name Collection Type:: Clean-Voided Midstream Performed By: #### C BC, BMP #### [facility] [address] Bilirubin,Urine Negative Normal Negative [facility] Comment on above: Order Comment: Name Collection Type:: Clean-Voided Midstream Performed By: #### C BC, BMP #### [facility] [address] [place] [address] [place] Color (U) Yellow Normal Yellow [facility] Comment on above: Order Comment: Name Collection Type:: Clean-Voided Midstream Performed By: #### C BC, BMP #### [facility] [address] [place] [address] Glucose Ql (U) Normal Normal Normal [facility] Comment on above: Order Comment: Name Collection Type:: Clean-Voided Midstream Performed By: #### C BC, BMP #### [facility] [address] [place] [address] Ketones Ql (U) Negative Normal Negative [facility] Comment on above: Order Comment: Name Collection Type:: Clean-Voided Midstream Performed By: #### C BC, BMP #### [facility] [address] [place] [address] Leukocyte esterase Test strip Ql (U) Negative Normal Negative [facility] Comment on above: Order Comment: Name Collection Type:: Clean-Voided Midstream Performed By: #### C BC, BMP #### [facility] [address] [place] [address] [place] Nitrite,Urine Negative Normal Negative [facility] Comment on above: Order Comment: Name Collection Type:: Clean-Voided Midstream Performed By: #### C BC, BMP #### [facility] [address] [place] [address] [place] Occult Blood,Urine Negative Normal Negative [facility] Comment on above: Order Comment: Name Collection Type:: Clean-Voided Midstream Result Comment: PERF ORMED BY: [place] [address] PATHOLOGIST DIRECTOR PHARMACEUTICAL LELE FALK M.D. Performed By: #### C BC, BMP #### [facility] [address] [place] [address] [place] pH (U) 5.5 [pH] Normal 5.0-9.0 [facility] Comment on above: Order Comment: Name Collection Type:: Clean-Voided Midstream Performed By: #### C BC, BMP #### [facility] [address] [place] [id number] [place] Protein,Urine Negative Normal Negative [facility] Comment on above: Order Comment: Name Collection Type:: Clean-Voided Midstream Performed By: #### C BC, BMP #### [facility] [address] Specificy [place],Urine 1.021 Normal 1.001-1.030 [facility] Comment on above: Order Comment: Name Collection Type:: Clean-Voided Midstream Performed By: #### C BC, BMP #### [facility] [address] Urobilinogen,Urine Normal Normal Normal [facility] Comment on above: Order Comment: Name Collection Type:: Clean-Voided Midstream Performed By: #### C BC, BMP #### [facility] [address] [place] [address] Urine clarity by refractomet ry automatedOrdered By: Niki Martínez on 07-20-2023 Clarity Refractometry automated (U) Clear Clear [facility] Urine glucose measurement by automated test strip (mass/volume)Ordered By: Niki Martínez on 07-20-2023 Glucose Auto test strip (U) [Mass/Vol] Normal mg/dL Normal [facility] Urine hemoglobin detection b y automated test stripOrdered By: Niki Martínez on 07-20-2023 Hemoglobin Auto test strip Ql (U) Negative Negative [facility] Urine leukocyte esterase det ection by automated test stripOrdered By: Niki Martínez on 07-20-2023 Leukocyte esterase Auto test strip Ql (U) Negative Negative [facility] Urobilinogen Auto test strip (U) [Mass/Vol]Ordered By: Niki Martínez on 07-20-2023 Urobilinogen (U) [Mass/Vol] Normal mg/dL Normal [facility] WBC Auto (Bld) [#/Vol]Ordere d By: Niki Martínez on 07-20-2023 WBC (Bld) [#/Vol] 5.2 10*3/uL 3.8-11.6 [facility] pH Auto test strip (U)Ordere d By: Niki Martínez on 07-20-2023 pH (U) 5.5 [pH] 5.0-9.0 [facility] No Panel Informationon 06-16 BLANK _ [facility] Implant Date 05/22/2015 [facility] Model 5076 CapSureFix [facility] PACEMAKER REMOTE CHECKon AV Delay Adaptive Paced Minimum (ms) 180 ms [facility] AV Delay Adaptive Sensed Minimum (ms) 150 ms [facility] AV Delay Adaptive Status DISABLED [facility] Battery Voltage (volts) 2.94 V [facility] Godfrey RA Pacing Amplitude (volts) 1.5 V [facility] Godfrey RA Pacing Polarity BI [facility] Godfrey RA Pacing Pulse Width (ms) 0.4 ms [facility] Godfrey RA Sensing Amplitude (mvolts) 0.3 mV [facility] Godfrey RA Sensing Blanking Period (ms) 150 ms [facility] Godfrey RA Sensing Polarity BI [facility] Godfrey RA Sensing Refractory Period (ms) Auto [facility] Godfrey RV Pacing Amplitude (volts) 2 V [facility] Godfrey RV Pacing Polarity BI [facility] Godfrey RV Pacing Pulse Width (ms) 0.4 ms [facility] Godfrey RV Sensing Amplitude (mvolts) 0.9 mV [facility] Godfrey RV Sensing Blanking Period (ms) 200 ms [facility] Godfrey RV Sensing Polarity BI [facility] Hysteresis Rate (bpm) DISABLED [facility] Lead1 Mfg MDT [facility] Lead2 Mfg MDT [facility] Location RV [facility] Location RA [facility] Lower Rate (bpm) 60 {beats}/min [facility] Max Sensor Rate (bmp) 130 {beats}/min [facility] Model [id number] COBOS [facility] PM-Device Mfg ARIANNA [facility] PM-Percent Pacing (A) 99.76 % [facility] PM-Percent Pacing (V) 0.11 % [facility] PM-PMT Intervention ENABLED [facility] PM-PVC Intervention ENABLED [facility] PM-Rate Modulation Acceleration Reaction 30 s [facility] PM-Rate Modulation ADL Rate (bpm) 100 {beats}/min [facility] PM-Rate Modulation Deceleration Exercise [facility] PM-Rate Modulation Threshold MediumLow [facility] RA Bipolar Impedance ohms 437 ohm [facility] RA Unipolar Impedance ohms 399 ohm [facility] RV Bipolar Impedance ohms 532 ohm [facility] RV Unipolar Impedance 494 ohm [facility] Serial Number [id number] [facility] Serial Number [id number] [facility] Serial Number [id number] [facility] Thresh RA Capture Amplitude (volts) 0.5 V [facility] Thresh RA Capture Duration (ms) 0.4 ms [facility] Thresh RA Sensing Amplitude (mvolts) 2.25 mV [facility] Thresh RV Capture Amplitude (volts) 0.75 V [facility] Thresh RV Capture Duration (ms) 0.4 ms [facility] Thresh RV Sensing Amplitude (mvolts) 12.875 mV [facility] Tracking Rate (bpm) 130 {beats}/min [facility] Keegan 06-07-2023 JESSICA Telephone (CARDAV) -- CASSI RODRIGEZ ([id number]) 1950 F Date Time Provider Department 06/07/23 KITTY BREAUX During your visit today, we recorded the following information about you: Rosa Duong RN 06/07/2023 4:37 PM Signed Patient states she was supposed to send in a transmission of her pacemaker on 05/26, but completely forgot due to a in the family States she will transmit that tomorrow instead Allergies As of Date: 06/07/2023 Noted Allergy Reaction LYRICA (PREGABALIN) 08/24/2013 2 - Rash DEXAMETHASONE 10/03/2015 2 - Rash Date Reviewed: 09/10/2022 Reviewed by: Lauren Otero APRN.DOCKET CLERK - Fully Assessed Reason for Visit: pacemaker transmission [Other] Prescriptions as of 06/07/2023 - zonisamide (ZONEGRAN) 100 mg capsule Take 2 capsules by mouth daily at bedtime. - levETIRAcetam (KEPPRA) 750 mg tablet Take 1 tablet by mouth twice daily. - amLODIPine (NORVASC) 5 mg tablet Take 5 mg by mouth once daily. - venlafaxine ER (EFFEXOR XR) 75 mg 24 hr capsule Take 1 capsule by mouth once daily. - amitriptyline (ELAVIL) 25 mg tablet Take 25 mg by mouth daily at bedtime. - carvedilol (COREG) 12.5 mg tablet Take 12.5 mg by mouth twice daily with meals. - ondansetron orally disintegrating (ZOFRAN ODT) 4 mg disintegrating tablet - warfarin (COUMADIN) 4 mg tablet Take 1 tablet by mouth once daily. - omeprazole (PRILOSEC) 40 mg capsule Take 1 capsule by mouth once daily. 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 Right leg DVT (HCC) [I82.401] 03/09/2013 Presence of IVC filter [Z95.828] 03/09/2013 Central line complication (HCC) [T82.9XXA] 03/29/2014 Migraine [G43.909] 01/24/2015 Seizure (HCC) [R56.9] 01/24/2015 06/21/2018 New daily persistent headache [G44.52] 04/19/2015 HTN (hypertension) [I10] 05/14/2015 Bradycardia [R00.1] 05/14/2015 Anticoagulated on Coumadin [Z79.01] 05/14/2015 Elevated alkaline phosphatase level [R74.8] 05/14/2015 Partial epilepsy with impairment of consciousne*05/20/2015 Cardiac pacemaker in situ [Z95.0] 05/23/2015 Sinus node dysfunction (HCC) [I49.5] 07/11/2015 Depression [F32.A] 08/19/2015 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*10/08/2015 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] 10/08/2015 Abnormal weight loss [R63.4] 08/07/2016 Anxiety [F41.9] 06/21/2018 Other insomnia [G47.09] 06/21/2018 Nausea [R11.0] 09/19/2018 Family history of pancreatic cancer [Z80.0] 09/19/2018 Left-sided weakness [R53.1] 03/13/2019 Paresthesia and pain of left extremity [M79.609*03/13/2019 Left arm pain [M79.602] 10/24/2019 Encounter Status:Closed by SALO FREEDMAN RN on 06/07/23 Normal [facility] Creatinine (Bld) [Mass/Vol]O rdered By: Broderick Joiner on 06-04-2023 Creatinine [Mass/Vol] 1.6 mg/dL 0.6-1.3 [facility] Comment on above: ER/ESD physician is notified/shown all ISTAT results.Critical values may be confirmed by laboratory testing ifdeemed necessary by ER attending doctor. XR pre/post mri xrayon 06-04 XR pre/post mri xray [facility] [place] [address] MRI Report Signed Patient: Cassi Rodrigez MR#: [id number] 8 : 1950 Acct:[id number] Age/Sex: 73 / F ADM Date: 06/04/23 Loc: MR Room: Type: [facility] CL Attending Dr: Broderick Joiner DO Copies to: Broderick Joiner DO Ordering Provider: Broderick Joiner DO Date of Service: 06/04/23 MR/MR lumbar spine wo/w con: M47.27 ([id number]) XR/XR pre/post mri xray: M47.27 MR lumbar spine wo/w con, XR pre/post mri xray 06/04/2023 8:12 AM SIGNS AND SYMPTOMS: Low back pain radiating into lower extremities PROTOCOL: Multiplanar multisequence MR images of the lumbar spine were obtained with and without IV contrast. Frontal and lateral radiographs of the lumbar spine were obtained. CONTRAST: 18 mL of intravenous ProHance COMPARISON: None. FINDINGS: Radiographs of the lumbar spine: There is an IVC filter present. There is evidence of prior cholecystectomy. There is a dextro convex curvature. There is severe disc height loss at L2-L3 with moderate disc height loss at L1-L2. There is mild disc height loss throughout otherwise with intervertebral fusion at L5-S1. There is anterior osteophyte formation at L1-L2 and L2-L3. Degenerative changes are noted in the sacroiliac joints. MRI lumbar spine: Disc height loss and alignment is as noted above. This preservation of vertebral body heights. There is Modic type I endplate edema at T12-L1, L1-L2, L2-3, and L3-L4. The conus terminates at the L1-L2 intervertebral disc level. No epidural or paraspinous fluid collection is appreciated. There is no abnormal postcontrast enhancement. At T12-L1: There is a normal disc, central canal, and neural foramen. At L1-L2: There is a broad-based disc bulge with facet hypertrophy. There is mild spinal canal narrowing with mild bilateral neural foraminal narrowing. At L2-L3: There is a circumferential disc bulge with endplate osteophyte formation and facet hypertrophy. There is moderate spinal canal narrowing with moderate to severe left and moderate right neural foraminal stenosis. At L3-L4: There is a circumferential disc bulge with facet hypertrophy and ligamentum flavum thickening. There is moderate to severe narrowing of the spinal canal there is severe right and moderate left neural foraminal narrowing. This mass effect on the exiting right L3 nerve roots. At L4-L5: There is a circumferential disc bulge with a central disc extrusion and mild cranial migration. There is facet hypertrophy. There is severe spinal canal narrowing with redundancy of the nerve roots of the cauda equina above and below this level consistent with mass effect on the traversing nerve roots of the cauda equina. There is moderate left and severe right neural foraminal narrowing with mass effect on the exiting right L4 nerve roots. At L5-S1: There is intervertebral fusion with facet hypertrophy. There is no significant spinal canal or neural foraminal stenosis. MR/MR lumbar spine wo/w con IMPRESSION: At L2-L3: There is a circumferential disc bulge with endplate osteophyte formation and facet hypertrophy. There is moderate spinal canal narrowing with moderate to severe left and moderate right neural foraminal stenosis. At L3-L4: There is a circumferential disc bulge with facet hypertrophy and ligamentum flavum thickening. There is moderate to severe narrowing of the spinal canal there is severe right and moderate left neural foraminal narrowing. This mass effect on the exiting right L3 nerve roots. At L4-L5: There is a circumferential disc bulge with a central disc extrusion and mild cranial migration. There is facet hypertrophy. There is severe spinal canal narrowing with redundancy of the nerve roots of the cauda equina above and below this level consistent with mass effect on the traversing nerve roots of the cauda equina. There is moderate left and severe right neural foraminal narrowing with mass effect on the exiting right L4 nerve roots. There is no abnormal postcontrast enhancement. There is a mild dextro convex curvature of the lumbar spine. There is intervertebral fusion at L5-S1. Impression dictated by: Arnel Simon M.D.06/04/2023 1:31 PM Dictation Location: [place] [address] Transcribed By: [facility] 06/04/23 1331 Dictated By: Arnel Simon II, MD 06/04/23 1319 Signed By: 06/04/23 1331 [facility] No Panel Informationon 02-24 BLANK _ [facility] Implant Date 05/22/2015 [facility] Model 5076 CapSureFix [facility] PACEMAKER REMOTE CHECKon AV Delay Adaptive Paced Minimum (ms) 180 ms [facility] AV Delay Adaptive Sensed Minimum (ms) 150 ms [facility] AV Delay Adaptive Status DISABLED [facility] Battery Voltage (volts) 2.95 V [facility] Godfrey RA Pacing Amplitude (volts) 1.5 V [facility] Godfrey RA Pacing Polarity BI [facility] Godfrey RA Pacing Pulse Width (ms) 0.4 ms [facility] Godfrey RA Sensing Amplitude (mvolts) 0.3 mV [facility] Godfrey RA Sensing Blanking Period (ms) 150 ms [facility] Godfrey RA Sensing Polarity BI [facility] Godfrey RA Sensing Refractory Period (ms) Auto [facility] Godfrey RV Pacing Amplitude (volts) 2 V [facility] Godfrey RV Pacing Polarity BI [facility] Godfrey RV Pacing Pulse Width (ms) 0.4 ms [facility] Godfrey RV Sensing Amplitude (mvolts) 0.9 mV [facility] Godfrey RV Sensing Blanking Period (ms) 200 ms [facility] Godfrey RV Sensing Polarity BI [facility] Hysteresis Rate (bpm) DISABLED [facility] Lead1 Mfg MDT [facility] Lead2 Mfg MDT [facility] Location RV [facility] Location RA [facility] Lower Rate (bpm) 60 {beats}/min [facility] Max Sensor Rate (bmp) 130 {beats}/min [facility] Model [id number] COBOS [facility] PM-Device Mfg MDT [facility] PM-Percent Pacing (A) 99.67 % [facility] PM-Percent Pacing (V) 0.2 % [facility] PM-PMT Intervention ENABLED [facility] PM-PVC Intervention ENABLED [facility] PM-Rate Modulation Acceleration Reaction 30 s [facility] PM-Rate Modulation ADL Rate (bpm) 100 {beats}/min [facility] PM-Rate Modulation Deceleration Exercise [facility] PM-Rate Modulation Threshold MediumLow [facility] RA Bipolar Impedance ohms 418 ohm [facility] RA Unipolar Impedance ohms 380 ohm [facility] RV Bipolar Impedance ohms 532 ohm [facility] RV Unipolar Impedance 494 ohm [facility] Serial Number [id number] [facility] Serial Number [id number] [facility] Serial Number [id number] [facility] Thresh RA Capture Amplitude (volts) 0.5 V [facility] Thresh RA Capture Duration (ms) 0.4 ms [facility] Thresh RA Sensing Amplitude (mvolts) 2.25 mV [facility] Thresh RV Capture Amplitude (volts) 0.875 V [facility] Thresh RV Capture Duration (ms) 0.4 ms [facility] Thresh RV Sensing Amplitude (mvolts) 12.875 mV [facility] Tracking Rate (bpm) 130 {beats}/min [facility] No Panel Informationon 11-26 BLANK _ [facility] Implant Date 05/22/2015 [facility] Model 5076 CapSureFix [facility] PACEMAKER REMOTE CHECKon AV Delay Adaptive Paced Minimum (ms) 180 ms [facility] AV Delay Adaptive Sensed Minimum (ms) 150 ms [facility] AV Delay Adaptive Status DISABLED [facility] Battery Voltage (volts) 2.96 V [facility] Godfrey RA Pacing Amplitude (volts) 1.5 V [facility] Godfrey RA Pacing Polarity BI [facility] Godfrey RA Pacing Pulse Width (ms) 0.4 ms [facility] Godfrey RA Sensing Amplitude (mvolts) 0.3 mV [facility] Godfrey RA Sensing Blanking Period (ms) 150 ms [facility] Godfrey RA Sensing Polarity BI [facility] Godfrey RA Sensing Refractory Period (ms) Auto [facility] Godfrey RV Pacing Amplitude (volts) 2 V [facility] Godfrey RV Pacing Polarity BI [facility] Godfrey RV Pacing Pulse Width (ms) 0.4 ms [facility] Godfrey RV Sensing Amplitude (mvolts) 0.9 mV [facility] Godfrey RV Sensing Blanking Period (ms) 200 ms [facility] Godfrey RV Sensing Polarity BI [facility] Hysteresis Rate (bpm) DISABLED [facility] Lead1 Mfg MDT [facility] Lead2 Mfg MDT [facility] Location RV [facility] Location RA [facility] Lower Rate (bpm) 60 {beats}/min [facility] Max Sensor Rate (bmp) 130 {beats}/min [facility] Model [id number] COBOS [facility] PM-Device Mflizet KELLER [facility] PM-Percent Pacing (A) 99.43 % [facility] PM-Percent Pacing (V) 0.17 % [facility] PM-PMT Intervention ENABLED [facility] PM-PVC Intervention ENABLED [facility] PM-Rate Modulation Acceleration Reaction 30 s [facility] PM-Rate Modulation ADL Rate (bpm) 100 {beats}/min [facility] PM-Rate Modulation Deceleration Exercise [facility] PM-Rate Modulation Threshold MediumLow [facility] RA Bipolar Impedance ohms 437 ohm [facility] RA Unipolar Impedance ohms 399 ohm [facility] RV Bipolar Impedance ohms 532 ohm [facility] RV Unipolar Impedance 494 ohm [facility] Serial Number [id number] [facility] Serial Number [id number] [facility] Serial Number [id number] [facility] Thresh RA Capture Amplitude (volts) 0.5 V [facility] Thresh RA Capture Duration (ms) 0.4 ms [facility] Thresh RA Sensing Amplitude (mvolts) 1.875 mV [facility] Thresh RV Capture Amplitude (volts) 0.75 V [facility] Thresh RV Capture Duration (ms) 0.4 ms [facility] Thresh RV Sensing Amplitude (mvolts) 11.75 mV [facility] Tracking Rate (bpm) 130 {beats}/min [facility] No Panel Informationon 08-26 BLANK _ [facility] Implant Date 05/22/2015 [facility] Model 5076 CapSureFix [facility] PACEMAKER REMOTE CHECKon AV Delay Adaptive Paced Minimum (ms) 180 ms [facility] AV Delay Adaptive Sensed Minimum (ms) 150 ms [facility] AV Delay Adaptive Status DISABLED [facility] Battery Voltage (volts) 2.96 V [facility] Godfrey RA Pacing Amplitude (volts) 1.5 V [facility] Godfrey RA Pacing Polarity BI [facility] Godfrey RA Pacing Pulse Width (ms) 0.4 ms [facility] Godfrey RA Sensing Amplitude (mvolts) 0.3 mV [facility] Godfrey RA Sensing Blanking Period (ms) 150 ms [facility] Godfrey RA Sensing Polarity BI [facility] Godfrey RA Sensing Refractory Period (ms) Auto [facility] Godfrey RV Pacing Amplitude (volts) 2 V [facility] Godfrey RV Pacing Polarity BI [facility] Godfrey RV Pacing Pulse Width (ms) 0.4 ms [facility] Godfrey RV Sensing Amplitude (mvolts) 0.9 mV [facility] Godfrey RV Sensing Blanking Period (ms) 200 ms [facility] Godfrey RV Sensing Polarity BI [facility] Hysteresis Rate (bpm) DISABLED [facility] Lead1 Mfg MDT [facility] Lead2 Mfg MDGalo [facility] Location RV [facility] Location RA [facility] Lower Rate (bpm) 60 {beats}/min [facility] Max Sensor Rate (bmp) 130 {beats}/min [facility] Model [id number] COBOS [facility] PM-Device Mflizet KELLER [facility] PM-Percent Pacing (A) 99.6 % [facility] PM-Percent Pacing (V) 0.24 % [facility] PM-PMT Intervention ENABLED [facility] PM-PVC Intervention ENABLED [facility] PM-Rate Modulation Acceleration Reaction 30 s [facility] PM-Rate Modulation ADL Rate (bpm) 100 {beats}/min [facility] PM-Rate Modulation Deceleration Exercise [facility] PM-Rate Modulation Threshold MediumLow [facility] RA Bipolar Impedance ohms 437 ohm [facility] RA Unipolar Impedance ohms 399 ohm [facility] RV Bipolar Impedance ohms 532 ohm [facility] RV Unipolar Impedance 494 ohm [facility] Serial Number [id number] [facility] Serial Number [id number] [facility] Serial Number [id number] [facility] Thresh RA Capture Amplitude (volts) 0.5 V [facility] Thresh RA Capture Duration (ms) 0.4 ms [facility] Thresh RA Sensing Amplitude (mvolts) 2.5 mV [facility] Thresh RV Capture Amplitude (volts) 0.75 V [facility] Thresh RV Capture Duration (ms) 0.4 ms [facility] Thresh RV Sensing Amplitude (mvolts) 12.125 mV [facility] Tracking Rate (bpm) 130 {beats}/min [facility] US KIDNEYS BLADDERon 022 US KIDNEYS BLADDER EXAMINATION: US KID EYS BLADDER HISTORY: Chronic kidney disease due to hypertension COMPARISON: No relevant comparison available. TECHNIQUE: Ultrasound examination was performed of the bladder. FINDINGS: Right Kidney: Small in size, lobular in contour. The cortex is thinned and 0.6 cm. No solid cortical mass, hydronephrosis or obstructing nephrolithiasis Height: 3.5 cm Length: 7.4 cm Width: 3.1 cm Left Kidney: Normal in size, contour and echotexture. No solid cortical mass, hydronephrosis or obstructing nephrolithiasis Height: 4.8 cm Length: 11.4 cm Width: 4.7 cm Urinary bladder wall measures 4.5 mm, mildly prominent. Prevoid volume 3.61 mL post void volume 0 Ureteral jets: Visualized bilaterally Other: Incidental splenic calcifications IMPRESSION: Right renal cortical atrophy Electronically authenticated by: EBEN HUSSEIN Date: 2022-08-10 19:30 Normal [facility] UA RANDOM W/MICROSCOPICon BACTERIA NONE SEEN Normal NONE SEEN [facility] Comment on above: Performed By: #### U AMIC #### [facility] [address] [place] [address] Dr. Leah Felipe Bilirubin Ql (U) Negative Normal NEGATIVE [facility] Comment on above: Performed By: #### U AMIC #### [facility] [address] [place] [address] [address] Leah Felipe CAST NONE SEEN Normal NONE SEEN [facility] Comment on above: Performed By: #### U AMIC #### [facility] [address] [place] [address] [address] Leah Felipe Clarity (U) CLEAR Normal CLEAR [facility] Comment on above: Performed By: #### U AMIC #### [facility] [address] [place] [address] Dr. Leah Felipe Color (U) LT. YELLOW Normal YELLOW [facility] Comment on above: Performed By: #### U AMIC #### [facility] [address] [place] [address] [address] Leah Felipe Crystals LM Nom (Urine sed) NONE SEEN Normal NONE SEEN [facility] Comment on above: Performed By: #### U AMIC #### [facility] [address] [place] [address] [address] Leah Felipe Epithelial cells LM Ql (Urine sed) FEW Abnormal NONE SEEN /RARE [facility] Comment on above: Performed By: #### U AMIC #### [facility] [address] [place] [address] [address] Leah Felipe Glucose Ql (U) Negative Normal NEGATIVE [facility] Comment on above: Performed By: #### U AMIC #### [facility] [address] [place] [address] Dr. Leah Felipe Hemoglobin Ql (U) Negative Normal NEGATIVE [facility] Comment on above: Performed By: #### U AMIC #### [facility] [address] [place] [address] [address] Leah Felipe Ketones Ql (U) Negative Normal NEGATIVE [facility] Comment on above: Performed By: #### U AMIC #### [facility] [address] [place] [address] Dr. Leah Felipe LEUKOCYTES Negative Normal NEGATIVE [facility] Comment on above: Performed By: #### U AMIC #### [facility] [address] [place] [address] [address] Leah Felipe MUCOUS NONE SEEN Normal NONE SEEN [facility] Comment on above: Performed By: #### U AMIC #### [facility] [address] [place] [address] [address] Leah Felipe Nitrite Ql (U) Negative Normal NEGATIVE [facility] Comment on above: Performed By: #### U AMIC #### [facility] [address] [place] [address] Dr. Leah Felipe pH (U) 6.0 [pH] Normal 5-9 [facility] [facility]: Performed By: #### U AMIC #### [facility] [address] [place] [address] Dr. Leah Felipe RBC NONE SEEN Abnormal 0-2 [facility] Comment on above: Performed By: #### U AMIC #### [facility] [address] [place] [address] Dr. Leah Felipe SPEC GRAVITY 1.025 Normal 1.005-<=1.0 25 [facility] Comment on above: Performed By: #### U AMIC #### [facility] [address] [place] [address] Dr. Leah Felipe UA PROTEIN Negative Normal NEGATIVE/ TRACE [facility] Comment on above: Performed By: #### U AMIC #### [facility] [address] [place] [address] Dr. Leah Felipe Urobilinogen Qn (U) 0.2 {Lin'U}/dL Normal 0.2 - 1. 0 [facility] Comment on above: Performed By: #### U AMIC #### [facility] [address] [place] [address] Dr. Leah Felipe WBC 0-2 Abnormal NONE SEEN [facility] Comment on above: Performed By: #### U AMIC #### [facility] [address] [place] [address] Dr. Leah Felipe URINE T PROTEIN CREAT RATIOo n 08-03-2022 Protein (U) [Mass/Vol] 30.2 mg/dL Critically high <=12.0 [facility] Comment on above: Performed By: #### U RTPCR #### [facility] [address] [place] [address] Dr. Leah Felipe UR PROT CREAT RAT 0.19 Normal [facility] Comment on above: Performed By: #### U RTPCR #### [facility] [address] [place] [address] Dr. Leah Felipe URINE CREAT 159.67 mg/dL Normal 20.00-300.0 0 [facility] Comment on above: Performed By: #### U RTPCR #### [facility] [address] [place] [address] Dr. Leah Felipe CBC AUTO DIFFon 07-31-2022 BASO # 0.0 103/ul Normal 0.0-0.1 [facility] Comment on above: Performed By: #### C BC #### [facility] [address] [address] [address] Leah Felipe Basophils/100 WBC (Bld) 0.6 % Normal 0.2-2.0 [facility] Comment on above: Performed By: #### C BC #### [facility] [address] [address] [address] Leah Felipe EO # 0.3 103/ul Normal 0.0-0.7 [facility] Comment on above: Performed By: #### C BC #### [facility] [address] [address] [address] Leah Felipe Eosinophils/100 WBC (Bld) 5.5 % Normal 0.9-7.0 [facility] Comment on above: Performed By: #### C BC #### [facility] [address] [address] [address] Leah Felipe Erythrocyte distribution width (RBC) [Ratio] 12.5 % Normal 11.0-15.0 [facility] Comment on above: Performed By: #### C BC #### [facility] [address] [address] [address] Leah Felipe Hematocrit (Bld) [Volume fraction] 39.2 % Normal 36.0-48.0 [facility] Comment on above: Performed By: #### C BC #### [facility] [address] [address] [address] Leah Felipe Hemoglobin (Bld) [Mass/Vol] 12.5 g/dL Normal 12.0-16.0 [facility] Comment on above: Performed By: #### C BC #### [facility] [address] [address] [address] Leah Felipe IG # 0.01 10e3/ul Normal 0.00-0.03 [facility] Comment on above: Performed By: #### C BC #### [facility] [address] [place] [address] Dr. Leah Felipe IG % 0.2 % Normal 0.0-0.5 [facility] Comment on above: Performed By: #### C BC #### [facility] [address] [place] [address] Dr. Leah Felipe LYMPH # 0.8 103/ul Critically low 1.2-3.8 [facility] Comment on above: Performed By: #### C BC #### [facility] [address] [place] [address] Dr. Leah Felipe Lymphocytes/100 WBC (Bld) 16.0 % Critically low 20.5-60.0 [facility] Comment on above: Performed By: #### C BC #### [facility] [address] [place] [address] Dr. Leha Felipe MANUAL DIFF REQ NO Normal [facility] Comment on above: Performed By: #### C BC #### [facility] [address] [place] [address] Dr. Leah Felipe MCH (RBC) [Entitic mass] 30.9 pg Normal 26.7-34.0 [facility] Comment on above: Performed By: #### C BC #### [facility] [address] [place] [address] Dr. Leah Felipe MCHC (RBC) [Mass/Vol] 31.9 g/dL Normal 29.9-35.2 [facility] Comment on above: Performed By: #### C BC #### [facility] [address] [place] [address] Dr. Leah Felipe MCV (RBC) [Entitic vol] 97.0 fL Normal 81.0-99.0 [facility] Comment on above: Performed By: #### C BC #### [facility] [address] [place] [address] Dr. Leah Felipe MONO # 0.4 103/ul Normal 0.3-0.8 [facility] Comment on above: Performed By: #### C BC #### [facility] [address] [place] [address] Dr. Leah Felipe Monocytes/100 WBC (Bld) 8.7 % Normal 1.7-12.0 [facility] Comment on above: Performed By: #### C BC #### [facility] [address] [place] [address] Dr. Leah Felipe NEUT # 3.4 103/ul Normal 1.4-6.5 [facility] Comment on above: Performed By: #### C BC #### [facility] [address] [place] [address] Dr. Leah Felipe Neutrophils/100 WBC (Bld) 69.0 % Normal 43.0-75.0 [facility] Comment on above: Performed By: #### C BC #### [facility] [address] [place] [address] Dr. Leah Felipe Platelet mean volume (Bld) [Entitic vol] 9.1 fL Critically low 9.5-13.5 [facility] Comment on above: Performed By: #### C BC #### [facility] [address] [place] [address] Dr. Leah Felipe PLT 196 103/ul Normal 150-450 [facility] Comment on above: Performed By: #### C BC #### [facility] [address] [place] [address] Dr. Leah Felipe RBC 4.04 106/ul Critically low 4.20-5.40 [facility] Comment on above: Performed By: #### C BC #### [facility] [address] [place] [address] Dr. Leah Felipe WBC 5.0 103/ul Normal 4.0-11.0 [facility] Comment on above: Performed By: #### C BC #### [facility] [address] [place] [address] Dr. Leah Felipe PROF CHEM 8 (BAS METB)on Anion gap [Moles/Vol] 9.8 mmol/L Normal [facility] Comment on above: Performed By: #### B MP, TSH #### [facility] [address] [place] [address] Dr. Leah Felipe Calcium [Mass/Vol] 8.2 mg/dL Critically low 8.5-10.1 [facility] Comment on above: Performed By: #### B EVNANCIO, TSH #### [facility] [address] [place] [address] Dr. Leah Felipe Chloride [Moles/Vol] 107 mmol/L Normal 98-107 [facility] Comment on above: Performed By: #### B VENANCIO, TSH #### [facility] [address] [place] [address] Dr. Leah Felipe CO2 [Moles/Vol] 26.4 mmol/L Normal 21.0-32.0 [facility] Comment on above: Performed By: #### B VENANCIO, TSH #### [facility] [address] [place] [address] Dr. Leah Felipe Creatinine [Mass/Vol] 1.53 mg/dL Critically high 0.55-1.02 [facility] Comment on above: Performed By: #### B VENANCIO, TSH #### [facility] [address] [place] [address] Dr. Leah Felipe EGFR-AF GUYANESE 40 mL/min/1.73m2 Critically low >=60 [facility] Comment on above: Performed By: #### B VENANCIO, TSH #### [facility] [address] [place] [address] Dr. Leah Felipe EGFR-NON AF GUYANESE 33 mL/min/1.73m2 Critically low >=60 [facility] Comment on above: Performed By: #### B VENANCIO, TSH #### [facility] [address] [place] [address] Dr. Leah Felipe Glucose [Mass/Vol] 108 mg/dL Critically high 74-106 [facility] Comment on above: Performed By: #### B VENANCIO, TSH #### [facility] [address] [place] [address] Dr. Leah Felipe Potassium [Moles/Vol] 4.2 mmol/L Normal 3.5-5.1 [facility] Comment on above: Performed By: #### B VENANCIO, TSH #### [facility] [address] [address] [address] Leah Felipe Sodium [Moles/Vol] 139 mmol/L Normal 136-145 [facility] Comment on above: Performed By: #### B MP, TSH #### [facility] [address] [address] [address] Leah Felipe Urea nitrogen [Mass/Vol] 26.0 mg/dL Critically high 7.0-18.0 [facility] Comment on above: Performed By: #### B MP, TSH #### [facility] [address] [address] [address] Leah Felipe Urea nitrogen/Creatinine [Mass ratio] 17.0 mg/mg Normal [facility] Comment on above: Performed By: #### B VENANCIO, TSH #### [facility] [address] [place] [address] Dr. Leah Felipe TSHon 07-31-2022 TSH 1.650 uIU/mL Normal 0.358-3.740 [facility] Comment on above: Performed By: #### B MP, TSH #### [facility] [address] [place] [address] Dr. Leah Felipe VITAMIN B12on 07-31-2022 Cobalamin (Vitamin B12) [Mass/Vol] 378.0 pg/mL Normal 193.0-986.0 [facility] Comment on above: Performed By: #### V ITB12 #### [facility] [address] [place] [address] Dr. Leah Felipe MG MAMM SCREEN 3D FAVIOLA CADon 07-29-2022 MG MAMM SCREEN 3D FAVIOLA CAD Patient: CASSI RODRIGEZ Exam Date: 07/29/2022 : 1950 Gender:F Ordering : DR BRODERICK JOINER D.O. Admission #: [id number] Family : Order #: [id number] CLICK HERE TO VIEW EXAM RADIOLOGY REPORT PROCEDURE: MAMMOGRAM SCREENING 3D BILATERAL CAD COMPARISON: MG MAMM SCREEN FAVIOLA W CAD, 05/10/2020. MG MAMM SCREEN 3D FAVIOLA CAD, 06/24/2021. INDICATIONS: Screening mammography Calculator Name NCI Breast Cancer Risk Assessment Tool 5 Year Breast Cancer Risk 3.80% Lifetime Breast Cancer Risk 9.70% Personal Breast Cancer No Personal Ovarian Cancer No Treatments whipple procedure Family Cancers Sister with breast cancer at age 42; Father with liver cancer at age 57; Brother with pancreatic cancer at age 64. LOCATION: [facility] BREAST COMPOSITION: Heterogeneously dense,which may obscure small masses. FINDINGS: DIAGNOSTIC CATEGORY 2--BENIGN FINDING. NO CHANGE FROM COMPARISON. Scattered benign-appearing nodules are present. Scattered benign-appearing calcifications are present. Scattered benign-appearing lymph nodes are present. RIGHT BREAST: No significant suspicious finding. LEFT BREAST: No significant suspicious finding. RECOMMENDATIONS: ROUTINE MAMMOGRAM AND CLINICAL EVALUATION IN 12 MONTHS. PLEASE NOTE: A NORMAL MAMMOGRAM DOES NOT EXCLUDE THE POSSIBILITY OF BREAST CANCER. A CLINICALLY SUSPICIOUS PALPABLE LUMP SHOULD BE BIOPSIED. Dictated by: Eben Hussein MD on 07/29/2022 at 11:18 Approved by: Eben Hussein MD on 07/29/2022 at 11:19 Normal [facility] CBC panel Auto (Bld)on 07-23 Erythrocyte distribution width (RBC) [Ratio] 12.5 % Normal 11.5-15.0 [facility] Comment on above: Order Comment: Warren almazan Type: BLOOD SPECIMEN Ordering Facility: [facility] Address: [address] [address] Performed By: #### 5 8410-2 #### [facility] CLIA [id number] [address] [place] [address] [place] Hematocrit (Bld) [Volume fraction] 39.3 % Normal 36.0-46.0 [facility] Comment on above: Order Comment: Warren almazan Type: BLOOD SPECIMEN Ordering Facility: [facility] Address: [address] [address] Performed By: #### 5 8410-2 #### [facility] CLIA [id number] [address] [place] [address] [place] Hemoglobin (Bld) [Mass/Vol] 12.5 g/dL Normal 11.5-15.5 [facility] Comment on above: Order Comment: Warren almazan Type: BLOOD SPECIMEN Ordering Facility: [facility] Address: [address] [address] Performed By: #### 5 8410-2 #### [facility] [place] [id number] [address] [place], [place] [id number] [place] [address] [place] [facility] MCH (RBC) [Entitic mass] 31.3 pg Normal 26.0-34.0 [facility] Comment on above: Order Comment: Speci men Type: BLOOD SPECIMEN Ordering Facility: [facility] Address: [address] [place] [address] Performed By: #### 5 8410-2 #### [facility] [place] [id number] [address] [place], [place] [id number] [place] [address] [place] MCHC (RBC) [Mass/Vol] 31.8 g/dL Normal 30.5-36.0 [facility] Comment on above: Order Comment: Speci men Type: BLOOD SPECIMEN Ordering Facility: [facility] Address: [address] [place] [address] Performed By: #### 5 8410-2 #### [facility] [place] [id number] [address] [place] [address] [place] MCV (RBC) [Entitic vol] 98.5 fL Normal 80.0-100.0 [facility] Comment on above: Order Comment: Speci men Type: BLOOD SPECIMEN Ordering Facility: [facility] Address: [address] [place] [address] Performed By: #### 5 8410-2 #### [facility] [place] [id number] [address] [place] [address] [place] Nucleated RBC (Bld) [#/Vol] 10*3/uL Normal <0.01 [facility] Comment on above: Order Comment: Speci men Type: BLOOD SPECIMEN Ordering Facility: [facility] Address: [address] [place] [address] Performed By: #### 5 8410-2 #### [facility] [place] [id number] [address] [place] [address] [place] Platelet mean volume (Bld) [Entitic vol] 9.5 fL Normal 9.0-12.7 [facility] Comment on above: Order Comment: Speci men Type: BLOOD SPECIMEN Ordering Facility: [facility] Address: [address] [place] [address] Performed By: #### 5 8410-2 #### [facility] CLIA [id number] [address] [place] [address] [place] Platelets (Bld) [#/Vol] 214 10*3/uL Normal 150-400 [facility] Comment on above: Order Comment: Speci men Type: BLOOD SPECIMEN Ordering Facility: [facility] Address: [address] [place] [address] Performed By: #### 5 8410-2 #### [facility] IA [id number] [address] [place] [address] [place] RBC (Bld) [#/Vol] 3.99 10*6/uL Normal 3.90-5.20 [facility] Comment on above: Order Comment: Speci men Type: BLOOD SPECIMEN Ordering Facility: [facility] Address: [address] [place] [address] Performed By: #### 5 8410-2 #### [facility] [place] [id number] [address] [place] [address] [place] WBC (Bld) [#/Vol] 5.85 10*3/uL Normal 3.70-11.00 [facility] Comment on above: Order Comment: Speci men Type: BLOOD SPECIMEN Ordering Facility: [facility] Address: [address] [place] [place] [address] Performed By: #### 5 8410-2 #### [facility] IA [id number] [address] [place] [address] [place] Erythrocyte distribution width (RBC) [Ratio] 12.5 % 11.5 - 15.0 % [facility] Hematocrit (Bld) [Volume fraction] 39.3 % 36.0 - 46.0 % [facility] Hemoglobin (Bld) [Mass/Vol] 12.5 g/dL 11.5 - 15.5 g/dL [facility] MCH (RBC) [Entitic mass] 31.3 pg 26.0 - 34.0 pg [facility] MCHC (RBC) [Mass/Vol] 31.8 g/dL 30.5 - 36.0 g/dL [facility] MCV (RBC) [Entitic vol] 98.5 fL 80.0 - 100.0 fL [facility] Nucleated RBC (Bld) [#/Vol] <0.01 k/uL [facility] Platelet mean volume (Bld) [Entitic vol] 9.5 fL 9.0 - 12.7 fL [facility] Platelets (Bld) [#/Vol] 214 10*3/uL 150 - 400 k/uL [facility] RBC (Bld) [#/Vol] 3.99 10*6/uL 3.90 - 5.2 0 m/uL [facility] WBC (Bld) [#/Vol] 5.85 10*3/uL 3.70 - 11.00 k/uL [facility] TSH BLDon 07-23-2022 TSH Qn 1.890 m[IU]/L 0.270 - 4.200 mIU/L [facility] TSH SerPl-aCncon 07-23-2022 TSH Qn 1.890 m[IU]/L Normal 0.270-4.200 [facility] Comment on above: Order Comment: Speci men Type: BLOOD SPECIMEN Ordering Facility: [facility] Address: [address] [place] [address] Performed By: #### 3 016-3 #### [facility] CLIA [id number] [address] [place] [address] [place] Vital Signs Date Time Vital Sign Value Performing Clinician Facility 02-09-2024 14:58-0400 Body height 161.29 cm [facility] 02-09-2024 14:58-0400 Body mass index (BMI) [Ratio] 33.5 kg/m2 [facility] 02-09-2024 [id number] Body weight 87.08 kg [facility] 02-09-2024 14:58-0400 Diastolic blood pressure 71 mm[Hg] [facility] 02-09-2024 14:58-0400 Heart rate 78 /min [facility] 02-09-2024 14:58-0400 Respiratory rate 12 /min [facility] 02-09-2024 14:58-0400 Systolic blood pressure 114 mm[Hg] [facility] 12-23-2023 09:02-0500 Body height 157.5 cm Alejandro Villar MD, PhD Work Phone: [facility] 12-23-2023 09:02-0500 Body temperature 97.59 [degF] Alejandro Villar MD, PhD Work Phone: [facility] 12-23-2023 09:02-0500 Body weight 86.64 kg Alejandro Villar MD, PhD Work Phone: [facility] 12-23-2023 09:02-0500 Diastolic blood pressure 72 mm[Hg] Alejandro Villar MD, PhD Work Phone: [facility] 12-23-2023 09:02-0500 Heart rate 85 /min Alejandro Villar MD, PhD Work Phone: [facility] 12-23-2023 09:02-0500 SaO2% (BldA) [Mass fraction] 100 % Alejandro Villar MD, PhD Work Phone: [facility] 12-23-2023 09:02-0500 Systolic blood pressure 133 mm[Hg] Alejandro Villar MD, PhD Work Phone: [facility] 09-08-2023 14:50-0400 Body height 157.5 cm Mirian Tan [employer]PERATOR.DOCKET CLERK Work Phone: [facility] 09-08-2023 14:50-0400 Body weight 86.5 kg Mirian Tan [employer]IL[employer] HEAD HOUSE OPERATOR.DOCKET CLERK Work Phone: [facility] 09-08-2023 14:50-0400 Diastolic blood pressure 64 mm[Hg] Mirian Tan KILN HEAD HOUSE OPERATOR.DOCKET CLERK Work Phone: [facility] 09-08-2023 14:50-0400 Heart rate 62 /min Mirian Tan KILN HEAD HOUSE OPERATOR.DOCKET CLERK Work Phone: [facility] 09-08-2023 14:50-0400 Systolic blood pressure 130 mm[Hg] Mirian Tan [employer]ILN HEAD HOUSE OPERATOR.DOCKET CLERK Work Phone: [facility] 08-25-2023 10:20-0400 Body height 161.29 cm Niki Blades Other [facility] 08-25-2023 10:20-0400 Body mass index (BMI) [Ratio] 34.35 kg/m2 Niki Blades Other [facility] 08-25-2023 10:20-0400 Body weight 89.36 kg Niki Blades Other [facility] 08-16-2023 10:00-0400 Body height 161.29 cm Niki Blades Other [facility] 08-16-2023 10:00-0400 Body mass index (BMI) [Ratio] 34.35 kg/m2 Niki Blades Other [facility] 08-16-2023 10:00-0400 Body weight 89.36 kg Niki Blades Other [facility] 08-05-2023 07:21-0400 Body temperature 97.8 [degF] DO Broderick Ball Work Phone: [facility] 08-05-2023 07:21-0400 Diastolic blood pressure 73 mm[Hg] DO Broderick Ball Work Phone: [facility] 08-05-2023 07:21-0400 Heart rate 63 /min DO Broderick Ball Work Phone: [facility] 08-05-2023 07:21-0400 Respiratory rate 14 /min DO Broderick Ball Work Phone: [facility] 08-05-2023 07:21-0400 SaO2% (BldA) [Mass fraction] 97 % DO Broderick Ball Work Phone: [facility] 08-05-2023 07:21-0400 Systolic blood pressure 117 mm[Hg] DO Broderick Ball Work Phone: [facility] 08-05-2023 06:00-0400 Body weight 96.7 kg DO Broderick Ball Work Phone: [facility] 08-04-2023 00:00-0400 Inhaled oxygen flow rate 3 L/min DO Broderick Ball Work Phone: [facility] 08-03-2023 07:02-0400 Body height 157.48 cm DO Broderick Ball Work Phone: [facility] 08-03-2023 07:02-0400 Body mass index (BMI) [Ratio] 35 kg/m2 DO Broderick Ball Work Phone: [facility] 07-07-2023 14:20-0400 Body height 161.29 cm Niki Blades Other [facility] 07-07-2023 14:20-0400 Body mass index (BMI) [Ratio] 33.65 kg/m2 Niki Blades Other [facility] 07-07-2023 14:20-0400 Body weight 87.54 kg Niki Blades Other [facility] Other 07-07-2023 14:20-0400 Diastolic blood pressure 80 mm[Hg] Niki Blades Other [facility] Other 07-07-2023 14:20-0400 Systolic blood pressure 142 mm[Hg] Niki Blades Other [facility] 06-04-2023 08:42-0400 Body height 162.56 cm DO Broderick Ball Work Phone: [facility] 06-04-2023 08:42-0400 Body weight 87.08 kg DO Broderick Ball Work Phone: [facility] 05-06-2023 14:30-0400 Body height 161.29 cm Bertram Shannontanisha Other [facility] Other 05-06-2023 14:30-0400 Body mass index (BMI) [Ratio] 33.3 kg/m2 Bertram Janadavidtanisha Other [facility] 05-06-2023 14:30-0400 Body weight 86.64 kg Bertram Janadavidy Other [facility] Other 05-06-2023 14:30-0400 Diastolic blood pressure 70 mm[Hg] Bertram Mirthay Other [facility] Other 05-06-2023 14:30-0400 Systolic blood pressure 125 mm[Hg] Bertram Ditty Other [facility] 05-03-2023 14:30-0400 Body height 161.29 cm Broderick Ball Other [facility] Other 05-03-2023 14:30-0400 Body mass index (BMI) [Ratio] 33.16 kg/m2 Broderick Ball Other [facility] 05-03-2023 14:30-0400 Body weight 86.27 kg Broderick Ball Other [facility] 05-03-2023 14:30-0400 Diastolic blood pressure 71 mm[Hg] Broderick Ball Other [facility] Other 05-03-2023 14:30-0400 Respiratory rate 12 /min Broderick Ball Other [facility] Other 05-03-2023 14:30-0400 Systolic blood pressure 120 mm[Hg] Broderick Ball Other [facility] 03-25-2023 11:00-0400 Body height 161.29 cm Broderick Ball Other [facility] 03-25-2023 11:00-0400 Body mass index (BMI) [Ratio] 33.61 kg/m2 Broderick Ball Other [facility] 03-25-2023 11:00-0400 Body weight 87.45 kg Broderick Ball Other [facility] 03-25-2023 11:00-0400 Diastolic blood pressure 78 mm[Hg] Broderick Ball Other [facility] 03-25-2023 11:00-0400 Respiratory rate 12 /min Broderick Ball Other [facility] Other 03-25-2023 11:00-0400 Systolic blood pressure 135 mm[Hg] Broderick Ball Other [facility] Other 01-07-2023 14:15-0500 Body height 161.29 cm Bertram Sanders Other [facility] 01-07-2023 14:15-0500 Body mass index (BMI) [Ratio] 32.25 kg/m2 Bertram Sanders Other [facility] 01-07-2023 14:15-0500 Body weight 83.92 kg Bertram Sanders Other [facility] 01-07-2023 14:15-0500 Diastolic blood pressure 85 mm[Hg] Bertram Sanders Other [facility] 01-07-2023 14:15-0500 Systolic blood pressure 155 mm[Hg] Bertram Sanders Other [facility] 11-25-2022 11:00-0500 Body height 161.29 cm Broderick Ball Other [facility] 11-25-2022 11:00-0500 Body mass index (BMI) [Ratio] 32.25 kg/m2 Broderick Ball Other [facility] 11-25-2022 11:00-0500 Body weight 83.92 kg Broderick Ball Other [facility] 11-25-2022 11:00-0500 Diastolic blood pressure 78 mm[Hg] Broderick Ball Other [facility] 11-25-2022 11:00-0500 Respiratory rate 12 /min Broderick Ball Other [facility] Other 11-25-2022 11:00-0500 Systolic blood pressure 118 mm[Hg] Broderick Ball Other [facility] 09-10-2022 13:48-0400 Body height 157.5 cm Alejandro Villar MD, PhD Work Phone: [facility] 09-10-2022 13:48-0400 Body weight 88.27 kg Alejandro Villar MD, PhD Work Phone: [facility] 09-10-2022 13:48-0400 Diastolic blood pressure 86 mm[Hg] Alejandro Villar MD, PhD Work Phone: [facility] 09-10-2022 13:48-0400 Heart rate 76 /min Alejandro Villar MD, PhD Work Phone: [facility] 09-10-2022 13:48-0400 Systolic blood pressure 148 mm[Hg] Alejandro Villar MD, PhD Work Phone: [facility] 07-23-2022 10:09-0400 Body height 160 cm Kitty Vidal MD Work Phone: [facility] 07-23-2022 10:09-0400 Body weight 88 kg Kitty Vidal MD Work Phone: [facility] 07-23-2022 10:09-0400 Diastolic blood pressure 66 mm[Hg] Kitty Vidal MD Work Phone: [facility] 07-23-2022 10:09-0400 Heart rate 63 /min Kitty Vidal MD Work Phone: [facility] 07-23-2022 10:09-0400 Systolic blood pressure 136 mm[Hg] Kitty Vidal MD Work Phone: [facility] 01-06-2022 11:30-0500 Body height 161.29 cm Bertram Sanders Other [facility] Other 01-06-2022 11:30-0500 Body mass index (BMI) [Ratio] 30.68 kg/m2 Bertram Sanders Other [facility] Other 01-06-2022 11:30-0500 Body weight 79.83 kg Bertram Sanders Other [facility] Other Encounters Encounter Date Encounter Type Care Provider Facility Start: 02-09-2024 End: 02-09-2024 ambulatory [facility] Work Phone: Start: 02-09-2024 End: 02-09-2024 Patient encounter procedure [facility] Work Phone: Start: 12-23-2023 End: 12-23-2023 ambulatory ALEJANDRO VILLAR Facility:[facility] Start: 12-23-2023 End: 12-23-2023 Patient encounter procedure Alejandro Villar MD, PhD Work Phone: Neurology Comment on above: Intractable 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 aura and without status migrainosus (Primary Dx) Start: 11-24-2023 End: 11-24-2023 ambulatory Broderick Joiner Other [facility] Other Start: 11-24-2023 Office outpatient vi sit 15 minutes [facility] Start: 11-24-2023 End: 11-24-2023 Patient encounter procedure [facility] Work Phone: Start: 09-13-2023 Refill Alejandro wright MD, PhD Work Phone: Neurology Comment on above: Refill Request Patient Update Start: 09-08-2023 End: 09-08-2023 ambulatory MIRIAN TAN Facility:[facility] Start: 09-08-2023 Follow-up encounter Kitty Vidal MD Work Phone: [facility] Start: 09-08-2023 End: 09-08-2023 Patient encounter procedure Kitty Vidal MD Work Phone: [facility] Department Comment on above: 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); Cardiac pacemaker in situ; Bradycardia Start: 08-25-2023 End: 08-25-2023 ambulatory Niki Martínez Other [facility] Other Start: 08-25-2023 Postop follow up vis it related to original px Niki Martínez [facility] Start: 08-16-2023 End: 08-16-2023 ambulatory Niki Blades Other [facility] Other Start: 08-16-2023 Postop follow up vis it related to original px Niki Blades [facility] Start: 08-13-2023 End: 08-13-2023 ambulatory Broderick Ball Other [facility] Other Start: 08-13-2023 Telephone encounter Broderick Joiner [facility] Start: 08-12-2023 Postop follow up vis it related to original px Niki Blades [facility] Neuro[facility] Start: 08-12-2023 End: 08-12-2023 ambulatory Broderick Ball [facility] [employer] Other Start: 08-03-2023 End: 08-05-2023 ambulatory Niki A Blades Facility:[facility] Start: 08-03-2023 End: 08-05-2023 Admission to same day surgery center DO Broderick Ball Work Phone: [facility] [place] Start: 08-03-2023 End: 08-05-2023 ambulatory DO Broderick Ball Work Phone: [facility] Work Phone: Start: 08-02-2023 End: 08-02-2023 ambulatory Broderick Joiner Other [facility] Other Start: 08-02-2023 Telephone encounter Broderick Jioner [facility] Start: 07-20-2023 End: 07-20-2023 ambulatory Broderick Ball Facility:[facility] Start: 07-20-2023 End: 07-20-2023 ambulatory DO Broderick Ball Work Phone: [facility] Work Phone: Start: 07-20-2023 End: 07-20-2023 Patient encounter procedure DO Broderick Ball Work Phone: [facility] Work Phone: Start: 07-09-2023 End: 07-09-2023 ambulatory Niik Blades [facility] [employer] Other Start: 07-09-2023 Telephone encounter Niki Blades [facility] [employer] Start: 07-07-2023 End: 07-07-2023 ambulatory Niki Blades Other [facility] [employer] Other Start: 07-07-2023 Office outpatient ne w 45 minutes Niki Blades [facility] Neuro[facility] Start: 06-08-2023 Follow-up encounter Kitty Vidal MD Work Phone: [facility] Start: 06-08-2023 Pacemaker Remote F/U Kitty Vidal MD Work Phone: [facility] Department Start: 06-04-2023 ambulatory Facility:[id number] Start: 06-04-2023 End: 06-04-2023 ambulatory Broderick Ball Facility:[facility] Start: 06-04-2023 End: 06-04-2023 ambulatory DO Broderick Ball Work Phone: [facility] Work Phone: Start: 06-04-2023 End: 06-04-2023 Patient encounter procedure DO Broderick Ball Work Phone: [facility] [place] Work Phone: Start: 05-14-2023 End: 05-14-2023 ambulatory Broderick Ball Facility:[id number] Start: 05-14-2023 End: 05-14-2023 ambulatory DO Broderick Ball Work Phone: [facility] Work Phone: Start: 05-14-2023 End: 05-14-2023 Patient encounter procedure DO Broderick Ball Work Phone: [facility]-Pacemaker Check Start: 05-06-2023 End: 05-06-2023 ambulatory Bertram Sanders Other [facility] Other Start: 05-06-2023 Patient encounter procedure Bertram Sanders [facility] Start: 05-03-2023 End: 05-03-2023 ambulatory Broderick Joiner Other [facility] Other Start: 05-03-2023 Office outpatient vi sit 15 minutes [facility] Start: 05-03-2023 Telephone encounter Broderick SCHWARZ [facility] Start: 03-29-2023 End: 04-14-[address] BRODERICK JOINER [facility] [employer] Other Start: 03-29-2023 Telephone encounter Broderick SCHWARZ [facility] Start: 03-25-2023 End: 03-25-2023 ambulatory Broderick Joiner Other [facility] Other Start: 03-25-2023 Office outpatient vi sit 25 minutes [facility] Start: 03-15-2023 End: 04-14-2023 ambulatory AGUILAR H ARYANWWAD Facility:[facility] Start: 02-24-2023 Follow-up encounter Kitty Vidal MD Work Phone: [facility] Start: 02-24-2023 Pacemaker Remote F/U Kitty Vidal MD Work Phone: [facility] Department Start: 02-15-2023 End: 03-12-2023 ambulatory AGUILAR H FAWWAD Facility:[facility] Start: 02-03-2023 End: 02-03-2023 ambulatory Bertram Sanders Other [facility] Other Start: 02-03-2023 Telephone encounter Bertram SCHWARZ [facility] Start: 01-13-2023 End: 02-12-2023 ambulatory AGUILAR H FAWWAD Facility:[facility] Start: 01-07-2023 End: 01-07-2023 ambulatory Bertram Sanders Other [facility] Other Start: 01-07-2023 Patient encounter procedure Bertram Sanders [facility] Gastroenterology Start: 12-16-2022 End: 01-13-2023 ambulatory AGUILAR H FAWWAD Facility:[facility] Start: 11-25-2022 End: 11-25-2022 ambulatory Broderick Joiner Other [facility] Other Start: 11-25-2022 Follow-up encounter Kitty Vidal MD Work Phone: [facility] Start: 11-25-2022 Office outpatient vi sit 25 minutes [facility] Start: 11-25-2022 Pacemaker Remote F/U Kitty Vidal MD Work Phone: [facility] Department Start: 11-23-2022 Patient encounter procedure Broderick Joiner Other [facility] Other Start: 11-16-2022 End: 12-16-2022 ambulatory AGUILAR H FAWWAD Facility:[facility] Start: 10-15-2022 Adult health examination Niki Blades Other [facility] Other Start: 10-15-2022 Gynecological examination normal Niki Blades Other [facility] Other Start: 10-15-2022 End: 11-15-2022 ambulatory AGUILAR H FAWWAD Facility:[facility] Start: 09-15-2022 End: 10-14-2022 ambulatory AGUILAR H FAWWAD Facility:[facility] Start: 09-10-2022 End: 09-10-2022 Patient encounter procedure Alejandro Villar MD, PhD Work Phone: Neurology Comment on above: 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, intractable (HCC) Start: 08-26-2022 Follow-up encounter Kitty Vdial MD Work Phone: [facility] Start: 08-26-2022 Pacemaker Remote F/U Kitty Vidal MD Work Phone: [facility] Department Start: 08-16-2022 End: 09-14-2022 ambulatory SHAIKH Guy CARRILLO Facility:[facility] Start: 08-10-2022 End: 08-11-[address] BRODERICK JOINER Facility:[facility] Start: 08-03-2022 End: 08-04-[address] BRODERICK JOINER Facility:[facility] Start: 07-31-2022 End: 08-01-[address] BRODERICK JOINER Facility:[facility] Start: 07-29-2022 End: 07-30-[address] BRODERICK JOINER Facility:[facility] Start: 07-23-2022 End: 07-23-2022 Patient encounter procedure Kitty Vidal MD Work Phone: Cardiology Comment on above: Chronic fatigue (Manuela hugo Dx) Start: 07-16-2022 End: 08-15-2022 ambulatory SHAIKH Guy CARRILLO Facility:[facility] Start: 06-15-2022 End: 07-15-2022 ambulatory SHAIKH Guy CARRILLO Facility:[facility] Start: 06-08-2022 End: 06-08-[address] BRODERICK JOINER Facility:[facility] Start: 05-15-2022 End: 06-12-[address] BRODERICK JOINER Facility:[facility] Start: 01-06-2022 End: 01-06-2022 ambulatory Bertram Sanders Other [facility] Other Start: 01-06-2022 Patient encounter procedure Bertram Sanders [facility] Gastroenterology Start: 10-14-2020 End: 10-14-2020 Pre-procedure evaluation check Niki Martínez Other [facility] Other Procedures Date Procedure Procedure Detail Performing Clinician Start: 09-08-2023 PACEMAKER CLINIC CHECK Kitty Vidal MD Work Phone: Start: 08-03-2023 Antibody screen Hussein Joiner Comment on above: Result Comment: PERF ORMED BY: [facility] [address] [place] [address] PATHOLOGIST DIRECTOR PHARMACEUTICAL LELE FALK M.D. Start: 08-03-2023 Excision of lumbar intervertebral disc DO [facility] Work Phone: Start: 08-03-2023 X-ray of lumbar spin e, single view DO [facility] Work Phone: Start: 06-08-2023 PACEMAKER REMOTE CHECK Kitty Vidal MD Work Phone: Start: 06-04-2023 MRI of lumbar spine with contrast DO [facility] Work Phone: Start: 06-04-2023 XR pre/post mri xray DO [facility] Work Phone: Start: 02-24-2023 PACEMAKER REMOTE CHECK Kitty Vidal MD Work Phone: Start: 11-25-2022 PACEMAKER REMOTE CHECK Kitty Vidal MD Work Phone: Start: 08-26-2022 PACEMAKER REMOTE CHECK Kitty Vidal MD Work Phone: Start: 04-13-2019 Screening for malign ant neoplasm of colon Niki Blades Other Start: 04-13-2019 Screening mammography D eborah Blades Other End: 01-25-2022 Depression screening Niki Blades Other Plan of Treatment Date Care Activity Detail Author Start: 11-28-2024 DIABETES SCREEN DIABETES SCREEN [facility] Start: 11-28-2024 Diabetes Screening Diabetes Screenin g [facility] Start: 11-15-2023 Advance Directive Discussion Advance Directive Discussion [facility] Start: 08-05-2023 [facility] Start: 08-03-[address] [facility] Start: 08-03-2023 [facility] Start: 07-16-2023 Covid-19 Vaccine ( season) Covid-19 Vaccine () [facility] Start: 07-16-2023 Influenza vaccination C [facility] Start: 11-15-2022 ADVANCE DIRECTIVE DISCUSSION ADVANCE DIRECTIVE DISCUSSION [facility] Start: 09-10-2022 End: 11-10-2022 levETIRAcetam [Mass/volume] in Serum or Plasma [facility] Work Phone: Comment on above: Expected: 09/10/2022 , Expires: 11/10/2022 Start: 09-10-2022 End: 11-10-2022 Zonisamide [Mass/volume] in Serum or Plasma [facility] Work Phone: Comment on above: Expected: 09/10/2022 , Expires: 11/10/2022 Start: 07-16-2022 Influenza vaccination INFLUENZA (#1) [facility] Start: 11-15-2021 ADVANCE DIRECTIVE DISCUSSION ADVANCE DIRECTIVE DISCUSSION [facility] Start: 02-04-2019 Pneumococcal Vaccine : 65+ (2 - PCV) Pneumococcal Vaccine: 65+ (2 - PCV) [facility] Start: 02-04-2019 Pneumococcal Vaccine : 65+ (2 of 2 - PCV) Pneumococcal Vaccine: 65+ (2 of 2 - PCV) [facility] Start: 2015 BONE DENSITY BONE DENSITY [facility] Start: 2015 Bone Density Screening Bone Density Screening [facility] Start: 2015 PNEUMOCOCCAL: 65+ (1 - PCV) PNEUMOCOCCAL: 65+ (1 - PCV) [facility] Start: 2015 Screening for osteoporosis Bone Density Screening [facility] Start: 2010 RSV Vaccine (1 - 1-d ose 60+ series) RSV Vaccine (1 - 1-dose 60+ series) [facility] Start: 2000 SHINGRIX VACCINE (1 of 2) SHINGRIX VACCINE (1 of 2) [facility] Start: 1995 COLOGUARD (FIT-DNA) COLOGUARD (FIT-D NA) [facility] Start: 1995 Colonoscopy COLONOSCOPY [facility] Start: 1995 COLORECTAL CANCER SCREENING COLORECTAL CANCER SCREENING [facility] Start: [address] COLONOGRAPHY [facility] Start: 1995 FECAL OCCULT BLOOD FECAL OCCULT BLOO D [facility] Start: 1995 Lipid 1996 panel - S akila or Plasma Lipid Screening [facility] Start: 1995 Lipid panel Lipid Screening [facility] Start: 1995 LIPID SCREEN LIPID SCREEN [facility] Start: 1995 Screening for malign ant neoplasm of colon [facility] Start: 1995 SIGMOIDOSCOPY SIGMOIDOSCOPY [facility] Start: 1990 Mammography [facility] Start: 1990 Screening for malign ant neoplasm of breast Mammogram Screening [facility] Start: 1969 Urine microalbumin profile [facility] Start: 1968 ANNUAL PCP TEAM MSWS YESENIA DISEASE VISIT ANNUAL PCP TEAM CHRONIC DISEASE VISIT [facility] Start: 1968 BP CONTROLLED (<130/80) BP CONTROLLE D (<130/80) [facility] Start: 1968 HEPATITIS C SCREENING HEPATITIS C [facility] Start: 1968 Hepatitis C screening Hepatitis C [facility] Start: 1950 COVID-19 VACCINE (#1) COVID-19 VACCI NE (#1) [facility] End: 07-23-2023 ECG COMPLETE ECG COMPLETE ECG Routine Chronic fatigue 1 Occurrences starting 07/23/2022 until 07/23/2023 [facility] Work Phone: Comment on above: 1 Occurrences starti ng 07/23/2022 until 07/23/2023 ECG COMPLETE ECG COMPLETE ECG Routine Sinus node dysfunction (HCC) Cardiac pacemaker in situ Bradycardia Ordered: 09/08/2023 [facility] Work Phone: Comment on above: Ordered: 09/08/2023 Patient Education Spinal Stenosis (DC) [facility] Work Phone: Patient referral [facility] Work Phone: [facility] Immunizations Immunization Date Immunization Notes Care Provider Aryan tamayo 07-30-2022 influenza virus vaccine, split virus (incl. purified surface antigen) Niki Martínez Other [facility] Other 07-30-2022 influenza virus vaccine, unspecified formulation [facility] 09-10-2021 COVID-19 mRNA-1273 (Moderna) DO [facility] Work Phone: [facility] 07-30-2021 influenza virus vaccine, split virus (incl. purified surface antigen) Niki Blades Other [facility] Other 07-30-2021 influenza virus vaccine, unspecified formulation [facility] 01-14-2021 COVID-19 mRNA-1273 (Moderna) DO [facility] Work Phone: [facility] 12-17-2020 COVID-19 mRNA-1273 (Moderna) DO [facility] Work Phone: [facility] 09-03-2020 influenza virus vaccine, split virus (incl. purified surface antigen) Niki Blades Other [facility] Other 09-03-2020 influenza virus vaccine, unspecified formulation [facility] 08-23-2019 influenza virus vaccine, split virus (incl. purified surface antigen) Niki Blades Other [facility] Other 08-23-2019 influenza virus vaccine, unspecified formulation [facility] 09-07-2018 influenza virus vaccine, split virus (incl. purified surface antigen) Niki Blades Other [facility] Other 09-07-2018 influenza virus vaccine, unspecified formulation [facility] 02-04-2018 pneumococcal polysaccharide vaccine, 23 valent Niki Blades Other [facility] Payers Date Payer Category Payer Self-pay [id number] 2021 Unknown [id number] 2015 Private Health Insurance [employer] C IGNA MEDICARE SUPPLEMENT [id number] 2015-Present [phone] [address] [place] [address] Indemnity [id number] 2013 Medicare [id number] 2008 Unknown [place] BC/BS [id number] 1959 Medicare [id number] 1959 Medicare [id number] [id number] 1950 Unknown [id number] 2.16.840.1.801575.3.579.2 .593 1950 Unknown [id number] 2.16.840.1.560635.3.579.2 .593 1950 Unknown [id number] 2.16.840.1.384746.3.579.2 .593 1950 Unknown [id number] 2.16.840.1.310411.3.579.2 .593 1950 Unknown [id number] 2.16.840.1.841513.3.579.2 .593 1950 Unknown [id number] 2.16.840.1.423236.3.579.2 .593 1950 Unknown [id number] 2.16.840.1.937407.3.579.2 .593 1950 Unknown [id number] 2.16.840.1.832929.3.579.2 .593 1950 Unknown [id number] 2.16.840.1.835754.3.579.2 .593 1950 Unknown [id number] 2.16.840.1.663200.3.579.2 .593 1950 Unknown [id number] 2.16.840.1.296798.3.579.2 .593 1950 Unknown [id number] 2.16.840.1.169201.3.579.2 .593 1950 Unknown [id number] 2.16.840.1.813488.3.579.2 .593 1950 Unknown [id number] 2.16.840.1.120274.3.579.2 .593 1950 Unknown [id number] 2.16.840.1.130220.3.579.2 .593 1950 Unknown [id number] 2.16.840.1.772427.3.579.2 .593 1950 Unknown [id number] 2.16.840.1.669722.3.579.2 .593 1950 Unknown [id number] 2.16.840.1.180313.3.579.2 .356 1950 Unknown [id number] 2.16.840.1.244874.3.579.2 .356 Unknown [id number] 2.16.840.1.037121.3.579.2 .531 Unknown [id number] 2.16.840.1.841410.3.579.2 .531 Unknown [id number] 2.16840.1.945021.3.579.2 .531 Unknown [id number] 2.16840.1.367437.3.579.2 .531 Unknown [id number] 2.16840.1.557805.3.579.2 .531 Social History Date Type Detail Facility Start: 09-10-2022 End: 09-08-2023 Sex Assigned At [facility] Start: 02-19-2011 End: 08-03-2023 Tobacco smoking status NHIS Never smoked tobacco [facility] Start: 02-19-2011 End: 09-10-2022 Tobacco use and exposure Smokeless tobacco non-user [facility] Start: 11-28-2021 End: 12-23-2023 Alcohol intake Current non-drinker of alcohol (finding) [facility] Start: 1950 Sex Assigned At Not on file C [facility] Start: 07-13-2022 End: 09-10-2022 Exposure to SARS-CoV-2 (event) Not sure [facility] Start: 1950 Sex Assigned At Female F [facility] Start: 09-10-2022 End: 09-08-2023 History of Social function [facility] Adult Depression Screening Assessment 2 [facility] Medical Equipment Procedure Code Equipment Code Equipment Origin al Text Equipment Identifier Dates Plate Bn 12mm Cm f Ti 2 H Lp - [id number] Start: 08-16-2015 Pin Crss Sd Scr 1.5x4mm - [id number] Start: 08-16-2015 Goals Date Patient Goal Desired Activity /State Functional Status Date Assessment Result Facility 08-05-2023 Functional status Patient at Baseline [facility] Work Phone: Mental Status Date Assessment Result Facility 08-05-2023 Cognitive function Cognitive Sta tus Patient at Baseline [facility] Work Phone: Clinical Notes 01-24-2015 to 12-23-2023 Patient Alejandro Delgado MD, PhD - 12/23/2023 9:00 AM EST Note Date & Type Note Facility 12-23-2023 Note HNO ID: [id number] Author: ALEJANDRO VILLAR MD, PhD Service: ? Author Type: Physician Type: Progress Notes Filed: 12/23/2023 13:37 Note Text: [facility] EPILEPSY CENTER CHIEF COMPLAINT: Patient presents with: Follow Up Epilepsy HISTORY OF PRESENT ILLNESS: Cassi Rodrigez is a 73 year old female with past medical history of depression, hypertension, SSS s/p PPM, pancreatic cancer, migraines, SHELL and medically intractable focal epilepsy, s/p right temporal lobectomy 08/16/2015 (pathology: MUSHTAQ / FCD). She presents for routine follow up regarding seizures. She is a patient of Dr. Alejandro Villar, last seen by Lauren Otero CNP AND Dr. Alejandro Villar on 09/10/2022. Interval update 12/23/2023: Patient reports eugenie vu like I've been there before and done that before occurring ~ 2-3 times per month, lasts a few seconds then back to baseline. No ADRIENNE. She has been under increased stress recently, which is possible trigger. Reports multiple deaths in her family. She is taking LEV 750 mg BID and ZNS 200 mg qHS. No clear side effects. She does report fatigue, but states she does not necessarily think its related to ASM. She does have history of untreated SHELL, feels she sleeps well though. She had a lumbar laminectomy in 07/2023, did well for a while but now starting to have pain again. Her surgeon retired in 10/2023, so she is looking for new provider. Otherwise, her has been concerned with her voice, has been more raspy and low recently but no other associated symptoms. Does make note of ongoing headaches. She is retired. Does not drive. Office visit 08/2022: Today, she states she is having ~ one aura per month, described as eugenie vu. She is taking LEV 750 mg BID and ZNS 200 mg qHS. Takes them at 7A and 7P. Denies side effects. States she has been more tired recently. Goes to bed at 10PM, wakes up at 8AM, takes a nap from 11A-1P and again naps from 3-4P. PCP did blood work, was told her creatinine was elevated and GFR low, so Fosamax was stopped. She has history of SHELL, but has not been wearing CPAP as she lost weight and mask wasn't fitting correctly. Also has been more stressed recently, states a lot of family stressors, including family members moving away. Takes Effexor, which PCP just increased dose of. Rarely drives. Office visit 09/19/2021: Today, patient reports she has experienced four episodes of eugenie vu since NASRIN. Unsure of dates. She describes them as something that has happened before . She is unclear if she has ADRIENNE, tells her he will notice her staring/zoning out for about 10-30 seconds during this time. She reports that prior to resection, couldn't get me to come back from [place] but now he can get me out of it. In other health, she continues to experience persistent headaches. She was referred to the headache clinic at [facility] in the past but at this time she feels that she can deal with them. Feels tired all the time and does not have energy like she used to. Does not report any change in fatigue since decreasing LEV in 2019 (in efforts to help fatigue). She recently was diagnosed with CKD stage 3 and osteoporosis. Current ASM: ZNS 100 mg qHS (9 PM) LEV 750 mg BID (9 AM/9 PM) CURRENT OUTPATIENT MEDICATIONS: Current Outpatient Medications Medication Sig alendronate (FOSAMAX) 70 mg tablet Take 70 mg by mouth one time a week. venlafaxine ER (EFFEXOR XR) 75 mg 24 hr capsule Take 1 capsule by mouth once daily. zonisamide (ZONEGRAN) 100 mg capsule Take 2 capsules by mouth daily at bedtime. amitriptyline (ELAVIL) 25 mg tablet Take 25 mg by mouth daily at bedtime. carvedilol (COREG) 12.5 mg tablet Take 12.5 mg by mouth twice daily with meals. levETIRAcetam (KEPPRA) 750 mg tablet TAKE 1 TABLET BY MOUTH TWICE A DAY ondansetron orally disintegrating (ZOFRAN ODT) 4 mg disintegrating tablet traMADol (ULTRAM) 50 mg tablet naproxen sodium (ALEVE ORAL) Take by mouth as needed. warfarin (COUMADIN) 4 mg tablet Take 1 tablet by mouth once daily. Omeprazole (PRILOSEC) 40 mg ORAL capsule Take 1 capsule by mouth once daily. No current facility-administered medications for this visit. NEUROLOGICAL EXAM: Pt is alert and oriented to person, place, and time. The pupils were symmetrical, round, and reactive to light and accommodation. The ocular ductions were full with no evidence for gaze evoked nystagmus. There was no evidence for facial asymmetry. Muscle tone was normal and there was no evidence for pronator drift or tremor. There is no focal weakness. PREVIOUS EVALUATIONS: [place] [facility], 05/2015: Right Temporal Epilepsy Seizures: Aura -> Dialeptic Seizure Etiology: Unknown Associated Conditions: Mood Disorder (Depression), Pancreatic cancer (4 years remission) EEG Classification: Abnormal III (Awake, Sleep, 10-20 Scalp Electrodes, Anterior temporal electrodes) Interictal: 1. Intermittent Slow, Regional Right temporal Ictal (more content not included)... [facility] 12-23-2023 Instructions Lauren Otero APRN.NIC - 12/23/2023 9:42 AM EST To schedule with headache clinic (can schedule at [facility]): [phone] documented in this encounter [facility] 12-23-2023 History of Presen t illness Narrative [facility] EPILEPSY CENTER CHIEF COMPLAINT: Patient presents with: Follow Up Epilepsy HISTORY OF PRESENT ILLNESS: Cassi Rodrigez is a 73 year old female with past medical history of depression, hypertension, SSS s/p PPM, pancreatic cancer, migraines, SHELL and medically intractable focal epilepsy, s/p right temporal lobectomy 08/16/2015 (pathology: MUSHTAQ / FCD). She presents for routine follow up regarding seizures. She is a patient of Dr. Alejandro Villar, last seen by Lauren Otero CNP & Dr. Alejandro Villar on 09/10/2022. Interval update 12/23/2023: Patient reports eugenie vu like I've been there before and done that before occurring ~ 2-3 times per month, lasts a few seconds then back to baseline. No ADRIENNE. She has been under increased stress recently, which is possible trigger. Reports multiple deaths in her family. She is taking LEV 750 mg BID and ZNS 200 mg qHS. No clear side effects. She does report fatigue, but states she does not necessarily think its related to ASM. She does have history of untreated SHELL, feels she sleeps well though. She had a lumbar laminectomy in 07/2023, did well for a while but now starting to have pain again. Her surgeon retired in 10/2023, so she is looking for new provider. Otherwise, her has been concerned with her voice, has been more raspy and low recently but no other associated symptoms. Does make note of ongoing headaches. She is retired. Does not drive. Office visit 08/2022: Today, she states she is having ~ one aura per month, described as eugenie vu. She is taking LEV 750 mg BID and ZNS 200 mg qHS. Takes them at 7A and 7P. Denies side effects. States she has been more tired recently. Goes to bed at 10PM, wakes up at 8AM, takes a nap from 11A-1P and again naps from 3-4P. PCP did blood work, was told her creatinine was elevated and GFR low, so Fosamax was stopped. She has history of SHELL, but has not been wearing CPAP as she lost weight and mask wasn't fitting correctly. Also has been more stressed recently, states a lot of family stressors, including family members moving away. Takes Effexor, which PCP just increased dose of. Rarely drives. Office visit 09/19/2021: Today, patient reports she has experienced four episodes of eugenie vu since NASRIN. Unsure of dates. She describes them as something that has happened before . She is unclear if she has ADRIENNE, tells her he will notice her staring/zoning out for about 10-30 seconds during this time. She reports that prior to resection, couldn't get me to come back from auras but now he can get me out of it. In other health, she continues to experience persistent headaches. She was referred to the headache clinic at [facility] in the past but at this time she feels that she can deal with them. Feels tired all the time and does not have energy like she used to. Does not report any change in fatigue since decreasing LEV in 2019 (in efforts to help fatigue). She recently was diagnosed with CKD stage 3 and osteoporosis. Current ASM: ZNS 100 mg qHS (9 PM) LEV 750 mg BID (9 AM/9 PM) CURRENT OUTPATIENT MEDICATIONS: Current Outpatient Medications Medication Sig alendronate (FOSAMAX) 70 mg tablet Take 70 mg by mouth one time a week. venlafaxine ER (EFFEXOR XR) 75 mg 24 hr capsule Take 1 capsule by mouth once daily. zonisamide (ZONEGRAN) 100 mg capsule Take 2 capsules by mouth daily at bedtime. amitriptyline (ELAVIL) 25 mg tablet Take 25 mg by mouth daily at bedtime. carvedilol (COREG) 12.5 mg tablet Take 12.5 mg by mouth twice daily with meals. levETIRAcetam (KEPPRA) 750 mg tablet TAKE 1 TABLET BY MOUTH TWICE A DAY ondansetron orally disintegrating (ZOFRAN ODT) 4 mg disintegrating tablet traMADol (ULTRAM) 50 mg tablet naproxen sodium (ALEVE ORAL) Take by mouth as needed. warfarin (COUMADIN) 4 mg tablet Take 1 tablet by mouth once daily. Omeprazole (PRILOSEC) 40 mg ORAL capsule Take 1 capsule by mouth once daily. No current facility-administered medications for this visit. NEUROLOGICAL EXAM: Pt is alert and oriented to person, place, and time. The pupils were symmetrical, round, and reactive to light and accommodation. The ocular ductions were full with no evidence for gaze evoked nystagmus. There was no evidence for facial asymmetry. Muscle tone was normal and there was no evidence for pronator drift or tremor. There is no focal weakness. PREVIOUS EVALUATIONS: [facility], 05/2015: Right Temporal Epilepsy Seizures: Aura -> Dialeptic Seizure Etiology: Unknown Associated Conditions: Mood Disorder (Depression), Pancreatic cancer (4 years remission) EEG Classification: Abnormal III (Awake, Sleep, 10-20 Scalp Electrodes, Anterior temporal electrodes) Interictal: 1. Intermittent Slow, Regional Right temporal Ictal: 1. EEG: EEG Seizure, Regional Right temporal Seizure: Aura 2. EEG: EEG Seizure, Regional Right temporal Seizure: No Clinical Signs 3. EEG: EEG Seizure, Regional Right temporal Seizure: Epileptic Seizure -> Aura -> Dialeptic Seizure Patient Management Discussion: Present at patient management conference were Chito Matias Gupta, Jehi, and myself (Dr. Larkin). The group agreed that the patient suffers from medically intractable epilepsy. 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 The MRI scan was reviewed by Dr. Salomón May who felt there was global volume loss and onaxial FLAIR images the right mesial temporal regions did look to have an increase in signal but this was not reproducedwith other sequences. There were three options discussed: 1. Continue with medication management as only two medication trials have been documented. 2. Right temporal lobectomy (based on EEG features and previous history of eugenie-vu aura); this would be a low morbidsurgery and would avoid the necessity for invasive evaluation which could be more complicated in view of her complex medical co-morbidities. 3. Perform ANTIONE and ictal SPECT to confirm the hypothesis of right temporal onset. These options will be discussed with the patient ? ASSESSMENT: Cassi Rodrigez is a 73 year old female with an evaluation suggestive for medically intractable focal epilepsy, s/p right temporal lobectomy 08/16/2015 (pathology: MUSHTAQ / FCD). She is having ~ one aura per month, they do not bother her and she is not interested in making ASM adjustments. She has been more fatigued recently, possibly due to untreated SHELL and increased stress recently. 12/23/2023 update: patient with auras of eugenie vu ~ 2-3 times per month, no ADRIENNE but is bothersome for patient. Makes note of fatigue, but she does not clearly associate with ASM. Has history of untreated SHELL. I discussed the risks, benefits and alternatives of the medical plan with the patient. Questions were answered. The patient agreed with the plan as discussed. ? PLAN: - increase ZNS to 300 mg qHS - continue LEV 750 mg BID - discuss SHELL treatment/ possible sleep study with PCP, will let us know if she decides to pursue at [facility] - she needs for spine doctor, plans to talk to PCP first but will let us know if she needs referral to someone here at [facility] - ENT referral as needed for change in voice - referral to [facility] team - does not drive - follow up in 6 months, earlier as needed A total of 30 minutes was spent during the visit with greater than 50% of the time spent counseling and coordinating care of the above plan, discussing the following issues: medications and side effects as well as answering the patient's questions. Attending Note: Ariza findings confirmed. Patient examined. Discussed with the nurse practitioner and the patient. Plan as outlined. Alejandro Villar MD, PhD in collaboration with Lauren Otero APRN.DOCKET CLERK December 23, 2023 documented in this encounter [facility] 11-24-2023 Evaluation note Encounter Date Diagnosis Assessment Notes Nov, Acute non-recurrent maxillary sinusitis (ICD-10 - J01.00) Instructed to use Robitussin or Mucinex for cough, saline or Flonase NS for congestion, Tylenol for pain and fever. Nov, Primary hypertension (ICD-10 - I10) Increased risk for more serious, prolonged illness. [facility] Other [id number] Miscellaneous Notes* Telephone Encounter - Mirian Tan APRN.DOCKET CLERK - 09/13/2023 1:53 PM EDT Thank you reviewed scan documents. Mirian Tan APRN.CNP * Telephone Encounter - Brenda Hodges RN - 09/13/2023 7:58 AM EDT Received medical records from [facility] and scanned into chart for review. [facility] Miscellaneous Notes* Telephone Encounter - Daniel Agosto APRN.CNP - 09/13/2023 1:44 PM EDT The following approved medication requests have been transmitted electronically. Requested Prescriptions Signed Prescriptions Disp Refills levETIRAcetam (KEPPRA) 750 mg tablet 180 tablet 0 Sig: Take 1 tablet by mouth two times a day. Authorizing Provider: DANIEL AGOSTO APRN.CNP * Telephone Encounter - Gayle Medrano - 09/13/2023 12:33 PM EDT Prescription Refill: Requested by: patient Please E-Scribe Caller Contact Number: Pharmacy Name: [facility] Pharmacy Number: [phone] Generic/ brand: 30 or 90 day supply requested: 90 Last appointment: 09/10/22 Next Appointment: 12/09/[address] Villar documented in this [facility] NoteHNO ID: [id number] Author: Mirian Tan APRN.CNP Service: ? Author Type: Nurse Practitioner Type: Progress Notes Filed: 09/08/2023 3:29 PM Note Text: [facility] Department of Cardiovascular Medicine SECTION OF CARDIAC PACING and ELECTROPHYSIOLOGY OUTPATIENT VISIT DATE September 08, 2023 OUTPATIENT VISIT TYPE ESTABLISHED PRIMARY CARE PHYSICIAN: Broderick Joiner (Zack) [address] [place] [address] CHIEF COMPLAINT: follow up device management HISTORY OF PRESENT ILLNESS: Ms. Rodrigez is a 73 year old female who presents today for followed by Dr. Garner for h/o symptomatic sinus bradycardia (presyncope, decrease exercise tolerance, sinus node dysfunction, s/p dual chamber pacemaker (medtronic, 2014), preserved LV systolic heart function, Other PMH of epilepsy (managed with antiepileptic), h/o pancreatic cancer (s/p whipple, chemo), hypertension, asthma, depression, GERD h/o right leg DVT (2012), seizure, SHELL, IBS, half-way anticoagulation. Moderate functional capacity (active with ADL, lives with ), she states compliance with medications. She states since last visit July had lumbar laminectomy surgery, now walking for her physical therapy, no other complaints She denies chest pain, shortness of breath, orthopnea, cough, edema, palpitations, PND, lightheadedness or syncope. PAST CARDIAC HISTORY: see below PAST MEDICAL HISTORY Diagnosis Date Asthma, chronic Depression DJD (degenerative joint disease) HTN (hypertension) IBS (irritable bowel syndrome) SHELL (obstructive sleep apnea) Reflux Right leg DVT (HCC) 03/09/2013 Seizure (HCC) Seizures (HCC) PAST SURGICAL HISTORY Procedure Laterality Date ANTERIOR INTERBODY FUSION, CERVICAL APPENDECTOMY CHOLECYSTECTOMY PAST SURGICAL HISTORY OF 08/16/15 right frontal lobectomy SOCIAL HISTORY Social History Tobacco Use Smoking status: Never Smokeless tobacco: Never Vaping Use Vaping Use: Never used Substance Use Topics Alcohol use: No Drug use: No FAMILY HISTORY Problem Relation Age of Onset other (Liver Ca[other]) Father Breast Cancer Sister No Ocular Disease Other ALLERGIES: ALLERGIES Allergen Reactions Lyrica [Pregabalin] Rash Dexamethasone Rash MEDICATIONS: zonisamide (ZONEGRAN) 100 mg capsule Take 2 capsules by mouth daily at bedtime. levETIRAcetam (KEPPRA) 750 mg tablet Take 1 tablet by mouth twice daily. amLODIPine (NORVASC) 5 mg tablet Take 5 mg by mouth once daily. venlafaxine ER (EFFEXOR XR) 75 mg 24 hr capsule Take 1 capsule by mouth once daily. amitriptyline (ELAVIL) 25 mg tablet Take 25 mg by mouth daily at bedtime. carvedilol (COREG) 12.5 mg tablet Take 12.5 mg by mouth twice daily with meals. ondansetron orally disintegrating (ZOFRAN ODT) 4 mg disintegrating tablet warfarin (COUMADIN) 4 mg tablet Take 1 tablet by mouth once daily. omeprazole (PRILOSEC) 40 mg capsule Take 1 capsule by mouth once daily. REVIEW OF SYSTEMS: GENERAL: Negative for: Weight loss or gain, Fever or Chills, Weakness and Sleep difficulties. NECK: Negative for: Swelling, Pain, Stiffness RESPIRATORY: Negative for: Cough, Blood in Sputum, Shortness of breath, Wheezing, Apnea GASTROINTESTINAL: Negative for: Trouble swallowing, Heartburn, Change in bowel habits, Blood in stool, Dark black stools MUSCULOSKELETAL: Negtive for: Muscle or joint pain, stiffness, Joint swelling NEUROLOGIC/PSYCHIATRIC: Negative for: Weakness, Paralysis, Numbness, Tingling, Tremor, Nervousness or anxiety, Depressed mood, Memory loss SKIN: Negative for: Rash, Itching HEMATOLOGICAL/LYMPHATIC: Negative for: Easy bruising, Easy bleeding ENDOCRINE: Negative for: Heat or Cold Intolerance, Excessive Sweating, Frequent Urination, Frequent Thirst PHYSICAL EXAMINATION: General: Well appearing, in no acute distress, speaking in complete sentences. Neck: No jugular venous distention, no carotid bruits, carotids have a normal upstroke Lungs: Clear to auscultation bilaterally, no wheezing or rhonchi. Heart: Regular rhythm, S1, S2 normal, no S3, no S4, no heaves, no rub and no murmur, right chest pacemaker present skin intact, no discoloration Abdomen: Soft, nontender, bowel sounds normal Extremities: No peripheral edema . Grade 2/4 distal pulses bilaterally. Neuro: Oriented to person, place and time, alert, cooperative CARDIOVASCULAR MEDICINE TESTING: Reviewed VS, labs, previous cardiac testing Vitals 06/26/2021 09/19/2021 11/28/2021 07/23/2022 09/10/2022 09/08/2023 SITTING SYSTOLIC 130 134 136 136 148 130 SITTING DIASTOLIC 68 67 64 66 86 64 PULSE 68 83 86 63 76 62 TEMPERATURE 97.5 RESPIRATIONS 19 16 WEIGHT in POUNDS 176 lb 8 oz 186 lb 187 lb 6.4 oz 194 lb 194 lb 9.6 oz 190 lb 11.2 oz WEIGHT in KILOGRAMS 80.06 kg 84.369 kg 85.004 kg 87.998 kg 88.27 kg 86.501 kg HEIGHT in INCHES 64 in. (more content not included)...[facility] 09-08-2023 Instructions* Patient Instructions* Mirian Tan APRN.CNP - 09/08/2023 3:21 PM EDT Please schedule for device check & in one year Please have patient sign release of medical labs from [facility] had labs last month documented in this encounter[facility] History of Present illness Narrative* Mirian Tan APRN.CNP - 09/08/2023 2:30 PM EDT Images from the original note were not included. [facility] Department of Cardiovascular Medicine SECTION OF CARDIAC PACING and ELECTROPHYSIOLOGY OUTPATIENT VISIT DATE September 08, 2023 OUTPATIENT VISIT TYPE ESTABLISHED PRIMARY CARE PHYSICIAN: Broderick Joiner (Eveline) [address] [place] [address] CHIEF COMPLAINT: follow up device management HISTORY OF PRESENT ILLNESS: Ms. Rodrigez is a 73 year old female who presents today for followed by Dr. Garner for h/o symptomatic sinus bradycardia (presyncope, decrease exercise tolerance, sinus node dysfunction, s/p dual chamber pacemaker (medtronic, 2014), preserved LV systolic heart function, Other PMH of epilepsy (managed with antiepileptic), h/o pancreatic cancer (s/p whipple, chemo), hypertension, asthma, depression,GERD h/o right leg DVT (2012), seizure, SHELL, IBS, half-way anticoagulation. Moderate functional capacity (active with ADL, lives with ), she states compliance with medications. She states since last visit July had lumbar laminectomy surgery, now walking for her physical therapy, no other complaints She denies chest pain, shortness of breath, orthopnea, cough, edema, palpitations, PND, lightheadedness or syncope. PAST CARDIAC HISTORY: see below PAST MEDICAL HISTORY Diagnosis Date Asthma, chronic Depression DJD (degenerative joint disease) HTN (hypertension) IBS (irritable bowel syndrome) SHELL (obstructive sleep apnea) Reflux Right leg DVT (HCC) 03/09/2013 Seizure (HCC) Seizures (HCC) PAST SURGICAL HISTORY Procedure Laterality Date ANTERIOR INTERBODY FUSION, CERVICAL APPENDECTOMY CHOLECYSTECTOMY PAST SURGICAL HISTORY OF 08/16/15 right frontal lobectomy SOCIAL HISTORY Social History Tobacco Use Smoking status: Never Smokeless tobacco: Never Vaping Use Vaping Use: Never used Substance Use Topics Alcohol use: No Drug use: No FAMILY HISTORY Problem Relation Age of Onset other (Liver Ca[other]) Father Breast Cancer Sister No Ocular Disease Other ALLERGIES: ALLERGIES Allergen Reactions Lyrica [Pregabalin] Rash Dexamethasone Rash MEDICATIONS: zonisamide (ZONEGRAN) 100 mg capsule Take 2 capsules by mouth daily at bedtime. levETIRAcetam (KEPPRA) 750 mg tablet Take 1 tablet by mouth twice daily. amLODIPine (NORVASC) 5 mg tablet Take 5 mg by mouth once daily. venlafaxine ER (EFFEXOR XR) 75 mg 24 hr capsule Take 1 capsule by mouth once daily. amitriptyline (ELAVIL) 25 mg tablet Take 25 mg by mouth daily at bedtime. carvedilol (COREG) 12.5 mg tablet Take 12.5 mg by mouth twice daily with meals. ondansetron orally disintegrating (ZOFRAN ODT) 4 mg disintegrating tablet warfarin (COUMADIN) 4 mg tablet Take 1 tablet by mouth once daily. omeprazole (PRILOSEC) 40 mg capsule Take 1 capsule by mouth once daily. REVIEW OF SYSTEMS: GENERAL: Negative for: Weight loss or gain, Fever or Chills, Weakness and Sleep difficulties. NECK: Negative for: Swelling, Pain, Stiffness RESPIRATORY: Negative for: Cough, Blood in Sputum, Shortness of breath, Wheezing, Apnea GASTROINTESTINAL: Negative for: Trouble swallowing, Heartburn, Change in bowel habits, Blood in stool, Dark black stools MUSCULOSKELETAL: Negtive for: Muscle or joint pain, stiffness, Joint swelling NEUROLOGIC/PSYCHIATRIC: Negative for: Weakness, Paralysis, Numbness, Tingling, Tremor, Nervousness or anxiety, Depressed mood, Memory loss SKIN: Negative for: Rash, Itching HEMATOLOGICAL/LYMPHATIC: Negative for: Easy bruising, Easy bleeding ENDOCRINE: Negative for: Heat or Cold Intolerance, Excessive Sweating, Frequent Urination, FrequentThirst PHYSICAL EXAMINATION: General: Well appearing, in no acute distress, speaking in complete sentences. Neck: No jugular venous distention, no carotid bruits, carotids have a normal upstroke Lungs: Clear to auscultation bilaterally, no wheezing or rhonchi. Heart: Regular rhythm, S1, S2 normal, no S3, no S4, no heaves, no rub and no murmur, right chest pacemaker present skin intact, no discoloration Abdomen: Soft, nontender, bowel sounds normal Extremities: No peripheral edema . Grade 2/4 distal pulses bilaterally. Neuro: Oriented to person, place and time, alert, cooperative CARDIOVASCULAR MEDICINE TESTING: Reviewed VS, labs, previous cardiac testing Vitals 06/26/2021 09/19/2021 11/28/2021 07/23/2022 09/10/2022 09/08/2023 SITTING SYSTOLIC 130 134 136 136 148 130 SITTING DIASTOLIC 68 67 64 66 86 64 PULSE 68 83 86 63 76 62 TEMPERATURE 97.5 RESPIRATIONS 19 16 WEIGHT in POUNDS 176 lb 8 oz 186 lb 187 lb 6.4 oz 194 lb 194 lb 9.6 oz 190 lb 11.2 oz WEIGHT in KILOGRAMS 80.06 kg 84.369 kg 85.004 kg 87.998 kg 88.27 kg 86.501 kg HEIGHT in INCHES 64 in. 63 in. 62.992 in. 62.992 in. 62 in. 62 in. 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 COUNTERS SINCE: 06/04/23 ATRIAL ARRHYTHMIAS: There were 0 triggered episodes of atrial high rates VENTRICULAR ARRHYTHMIAS: There have been no ventricular detections since the last evaluation. LEAD MEASUREMENTS: Capture and sensing are appropriate. The pacing outputs maintain safety margin. Review of the lead impedance trends are normal. IMPLANT SITE/ SYMPTOMS: The incision and pocket are pain-free (0/10), well healed and without signsof erosion or infection. No arm swelling, syncope, pre- syncope or device related pocket stimulation. OTHER DIAGNOSTICS: RA pacing 99.5% RV pacing 0.3%. PROGRAMMING CHANGES MADE TODAY: None. Rate histograms somewhat blunted, but pt states she feels fine with activity. Recently had lower back surgery and is just now allowed to walk. IMPRESSION: Ms. Rodrigez is a 73 year old female with a PMH of h/o symptomatic sinus bradycardia (presyncope, decrease exercise tolerance, sinus node dysfunction, s/p dual chamber pacemaker (medtronic, 2014), preserved LV systolic heart function, Other PMH of epilepsy (managed with antiepileptic), h/o pancreatic cancer (s/p whipple, chemo), hypertension, asthma, depression, GERD h/o right leg DVT (2012), seizure, SHELL, IBS. normotensive, NSR, asymptomatic Discussed with the patient the following: -device check atrial pacing 100%, RV 0.3%, no arrhythmia -remote checks every three months PLAN AND RECOMMENDATIONS: CCB: amlodipine 5mg daily BB: carvedilol 12.5mg BID Anticoagulation: warfarin 4. Annual labs, I will obtain from [facility] she had last month Follow up appointment: Dr. Garner & device check in one year I spent 25 to 30 minutes in the visit, with more than 50% of the total [id number] time of the visit in counseling / coordination of care. CONTACT INFORMATION: Mirian Tan APRN.CNP, 09/08/23 [facility] Second Floor [address] [facility] [place] [address] documented in this encounterAultman [facility]10-11-2023 Evaluation note* Encounter Date Diagnosis Assessment Notes Treatment Notes Treatment Clinical Notes Aug, Lumbar stenosis with neurogenic claudication (ICD-10 - M48.062) [employer] Other 10-02-2023 Evaluation note* Encounter Date Diagnosis Assessment Notes Treatment Notes Treatment Clinical Notes Aug, Lumbar stenosis with neurogenic claudication (ICD-10 - M48.062) [employer] Other 09-28-2023 Evaluation note* Encounter Date Diagnosis Assessment Notes Treatment Notes Treatment Clinical Notes Jul, Lumbar stenosis with neurogenic claudication (ICD-10 - M48.062) Merged With [facility] [employer] Other 09-20-2023 Progress note Author Niki Martínez [facility] August 04, 2023 7:57am Note Date/Time August 04, 2023 7:57am [facility] [address] [place] [address] Neurosurgery Progress Note Signed Patient: Cassi Rodrigez MR#: [id number] : 1950 Acct:[id number] Age/Sex: 73 / F Adm Date: 3 Loc: 4N Room: [address] [place] [id number] Type: REG SD Attending Dr: Niki Martínez MD Copies to: ~ Date of Service: 08/04/2023 Subjective Subjective HPI: Mrs. Rodrigez is pod #1 s/p lumbar decompression L4, L5 secondary to spinal canalstenosis. She is resting comfortably and anxious to increase her activity today in preparation for homegoing. She reports some janee-incisional soreness and aching along the legs. Exam Physical Exam Vital Signs: Temp Pulse Resp BP Pulse Ox O2 Del Method O2 Flow Rate 97.3 F L 60 16 96/61 L 97 Room Air 3 08/04/23 04:05 08/04/23 04:05 08/04/23 04:05 08/04/23 04:05 08/04/23 04:05 08/04/23 04:05 08/04/23 00:00 Narrative: Mrs. Rodrigez was resting comfortably in bed supine at the time of my visit this morning. She was pleasant and cooperative during the examination. Const General: cooperative, comfortable and no acute distress Nutritional Appearance: overweight Orientation: alert, awake and oriented x3 HEENT Head: normal to inspection Ears: hearing grossly normal bilaterally Nose: external nose normal Face and sinus: normal facial exam Mouth: oral mucosae normal Eyes General: appearance normal, both eyes and all related structures (Wears glasses) EOM: EOM intact bilaterally Neck Neck: full ROM Resp Effort & Inspection: normal respiratory effort Neuro General: patient alert, patient awake and patient oriented x3 Cognition: normal cognition Speech: speech normal Motor: muscle tone normal throughout and strength 5/5 throughout Extrem General: full ROM Psych Appearance: grossly normal Mental Status: mental status grossly normal Mood: congruent mood Affect: normal affect Speech and Movement: speech and movement normal Attitude: cooperative Thought Process: normal Thought Content: normal Insight: insight good Judgment: judgment good Objective Lab Results Most Recent Labs: 08/04/23 04:43: PHA Creatinine Clear 34.66, Sodium 137, Potassium 4.8, Chloride 110 H, Carbon Dioxide 23.9, Anion Gap 7.9, BUN 24, Creatinine 1.48 H, Est GFR (CKD- EPI) 37.163, Glucose 129 H, Calcium 7.4 L 08/04/23 04:43: Corrected WBC 11.4, Uncorrected WBC Count 11.4, RBC 3.32 L, Hgb 10.5 L, Hct 31.5 L, MCV 94.8, MCH 31.6, MCHC 33.3, RDW 13.6, Plt Count 172, MPV 7.8, Neut % (Auto) 91.6, Lymph % (Auto) 4.4, Canadian % (Auto) 4.0, Eos % (Auto) 0.0, Baso % (Auto) 0.0, Nucleat RBC Rel Count 0.1, Neut # (Auto) 10.4 H, Lymph #(Auto) 0.5 L, Canadian # (Auto) 0.5, Eos # (Auto) 0.0, Baso # (Auto) 0.0 08/03/23 14:09: Blood Type Recheck A Positive 08/03/23 06:35: Blood Type A Positive, Antibody Screen Negative Assessment/Plan Assessment/Plan (1) Lumbar stenosis with neurogenic claudication: Plan: Mrs. Rodrigez is pod#1 s/p lumbar decompression secondary to lumbar stenosis. Shewill increase her activity today with the assistance of physical therapy and occupationaly therapy groups. Her hemovac has been placed to gravity and I will monitor its output. Code(s): M48.062 - Spinal stenosis, lumbar region with neurogenic claudication Status: Acute Time Spent With Patient (min): 30 Documented By: Niki Martínez MD 08/04/23 075 2 Signed By: <Electronically signed by Niki Martínez MD> 08/04/23 0757 [facility] Work Phone: [phone] 192-619708-23-2023 Evaluation note* Encounter Date Diagnosis Assessment Notes Treatment Notes Treatment Clinical Notes Jun, Lumbar stenosis with neurogenic claudication (ICD-10 - M48.062) [facility] Other 06-22-2023 Evaluation note* Encounter Date Diagnosis Assessment Notes Treatment Notes Treatment Clinical Notes Apr, Constipation (ICD-10 - K59.00) Patient was started on Linzess 72 mg she is doing well with this therapy and will continue this without change She will start dicyclomine 20 mg BID PRN for cramps RTO 1 year Apr, Nausea (ICD-10 - R11.0) Patient is on amitriptyline and her PCP increased her to 2 and 1/2 tablets to help with her back pain. She will continue with this therapy without change. [facility] Other 06-19-2023 Evaluation note* Encounter Date Diagnosis Assessment Notes Treatment Notes Treatment Clinical Notes Apr, Lumbosacral spondylosis with radiculopathy (ICD-10 - M47.27) [facility] Other 06-19-2023 Evaluation note* Encounter Date Diagnosis Assessment Notes Treatment Notes Treatment Clinical Notes Apr, Primary hypertension (ICD-10 - I10) This patient is instructed to consume a healthy, low-fat, low-salt diet. They are also encouraged to continue exercise to achieve/maintain a normal BMI. Apr, Lumbosacral spondylosis with radiculopathy (ICD-10 - M47.27) The patient is instructed to avoid bending, twisting or lifting. They are to use intermittent heat and ice as needed. They may schedule a massage or gentle manipulation. They may safely use Tylenol as needed. PT postponed until MRI completed MRI being rescheduled for [facility] due to PM Apr, Stage 3b chronic kidney disease (ICD-10 - N18.32) The patient is instructed on adequate control of hypertension and diabetes, if appropriate. They are also educated on the associated risks of NSAIDs and PPI use with kidney disease. They were instructed on adequate fluid balance and to avoid dehydration. Apr, History of lumbar fusion (ICD-10 - Z98.1) [facility] Other 05-15-2023 Evaluation note* Encounter Date Diagnosis Assessment Notes Treatment Notes Treatment Clinical Notes March, Lumbosacral spondylosis with radiculopathy (ICD-10 - M47.27) [facility] Other 05-11-2023 Evaluation note* Encounter Date Diagnosis Assessment Notes Treatment Notes Treatment Clinical Notes March, Primary hypertension (ICD-10 - I10) This patient is instructed to consume a healthy, low-fat, low-salt diet. They are also encouraged to continue exercise to achieve/maintain a normal BMI. March, Lumbosacral spondylosis with radiculopathy (ICD-10 - M47.27) The patient is instructed to avoid bending, twisting or lifting. They are to use intermittent heat and ice as needed. They may schedule a massage. They may safely use Tylenol as needed. Referral to PT for evaluation and treatment March, Stage 3b chronic kidney disease (ICD-10 - N18.32) The patient is instructed on adequate control of hypertension and diabetes, if appropriate. They are also educated on the associated risks of NSAIDs and PPI use with kidney disease. They were instructed on adequate fluid balance and to avoid dehydration. March, Gastroesophageal reflux disease with esophagitis without hemorrhage (ICD-10 - K21.00) Diet instructions: Smaller portions, avoid eating and laying flat, avoid eating or drinking prior to bedtime. Weight loss. March, Obstructive sleep apnea (ICD-10 - G47.33) This patient is aware of the benefits associated with SHELL: With continued use, the patient reduces the risk for DE, CVA, HTN, cardiac dysrhythmias and sudden cardiac deaths.The patient is also aware of the association between SHELL and morning headaches, daytime somnolence, fatigue and obesity, March, Irritable bowel syndrome with constipation (ICD-10 - K58.1) Increase dietary fiber, continue Elavil and Linzess, which seems to be working for her intractable nausea and constipation. Bowel habits are qod w/o straining. March, History of lumbar fusion (ICD-10 - Z98.1) Hx of two surgeries. Conservative treatment for now. MRI? Referral to Neurosurgery if symptoms don't improve w/ PT March, Other Stable w/o breakthrough Sz. Secondary to [employer] surgery Continue surveillance w/ US [facility] Other 2023 Evaluation note* Encounter Date Diagnosis Assessment Notes Treatment Notes Treatment Clinical Notes Jan, Nausea (ICD-10 - R11.0) [facility] Other 02-23-2023 Evaluation note* Encounter Date Diagnosis Assessment Notes Treatment Notes Treatment Clinical Notes Dec, Nausea (ICD-10 - R11.0) Increase Amitriptyline to 15mg at bedtime Dec, Constipation (ICD-10 - K59.00) Start Linzess 72mcg daily Pt to call if symptoms worsen or return Follow up in 4 months [facility] Other 01-11-2023 Evaluation note* Encounter Date Diagnosis Assessment Notes Treatment Notes Treatment Clinical Notes Nov, Essential hypertensi on (ICD-10 - I10) This patient is instructed to consume a healthy, low-fat, low-salt diet. They are also encouraged to continue exercise to achieve/maintain a normal BMI. Nov, Stage 3b chronic kidney disease (ICD-10 - N18.32) The patient is instructed on adequate control of hypertension and diabetes, if appropriate. They are also educated on the associated risks of NSAIDs and PPI use with kidney disease. They were instructed on adequate fluid balance and to avoid dehydration. Nov, Obstructive sleep apnea (ICD-10 - G47.33) This patient is aware of the benefits associated with SHELL: With continued use, the patient reduces the risk for DE, CVA, HTN, cardiac dysrhythmias and sudden cardiac deaths. The patient is also aware of the association between SHELL and morning headaches, daytime somnolence, fatigue and obesity Noncompliant Nov, Major depression, recurrent (ICD-10 - F33.9) Healthy diet, keep active and continue medications. f/u Psychiatry and counseling. Nov, Gastroesophageal reflux disease with esophagitis without hemorrhage (ICD-10 - K21.00) Diet instructions: Smaller portions, avoid eating and laying flat, avoid eating or drinking prior to bedtime. Weight loss. Continue PPI Nov, Cervical spondylosis (ICD-10 - M47.812) ROM exercises, heat/ice and Tylenol. Nov, Migraine with aura a nd without status migrainosus, not intractable (ICD-10 - G43.109) Nov, Epilepsy seizure, generalized, convulsive (ICD-10 - G40.309) No seizure activity. Compliant w/ treatment, f/u appt w/ Neurology. Nov, Thyroid nodule (ICD- 10 - E04.1) Surveillance for two years revealed no change, no further imaging necessary Nov, Age-related osteoporosis without current pathological fracture (ICD-10 - M81.0) Healthy diet, Calcium and vitamin D supplements and weight bearing exercises. d/c bisphosphonate due to declincing GFR Nov, Constipation (ICD-10 - K59.00) Diet instructions reviewed, increase fiber, fluids. Discussed medication to try: Miralax, Metamucil, Senakot May need to trial Amitiza and discuss w/ GI [facility] Other 10-27-2022 History of Present illness Narrative* Lauren Otero APRN.NIC - 09/10/2022 1:53 PM EDT [facility]PI[facility] CHIEF COMPLAINT: Patient presents with: Follow Up Epilepsy HISTORY OF PRESENT ILLNESS: Cassi Rodrigez is a 72 year old female with past medical history of depression, hypertension, SSS s/p PPM, pancreatic cancer, migraines, SHELL and medically intractable focal epilepsy, s/p right temporal lobectomy 08/16/2015 (pathology: MUSHTAQ / FCD). She presents for routine follow up regarding seizures. She is a patient of Dr. Alejandro Villar, last seen by Lauren Otero CNP on 09/19/2021. Today, she states she is having ~ one aura per month, described as eugenie vu. She is taking LEV 750 mg BID and ZNS 200 mg qHS. Takes them at 7A and 7P. Denies side effects. States she has been more tired recently. Goes to bed at 10PM, wakes up at 8AM, takes a nap from 11A-1P and again naps from 3-4P. PCP did blood work, was told her creatinine was elevated and GFR low, so Fosamax was stopped. She has history of SHELL, but has not been wearing CPAP as she lost weight and maskwasn't fitting correctly. Also has been more stressed recently, states a lot of family stressors, including family members moving away. Takes Effexor, which PCP just increased dose of. Rarely drives. Office visit 09/19/2021: Today, patient reports she has experienced four episodes of eugenie vu since NASRIN. Unsure of dates. Shedescribes them as something that has happened before . She is unclear if she has ADRIENNE, tells her he will notice her staring/zoning out for about 10-30 seconds during this time. She reports that prior to resection, couldn't get me to come back from [place] but now he can get me out ofit. In other health, she continues to experience persistent headaches. She was referred to the [facility] at [facility] in the past but at this time she feels that she can deal with them. Feels tired all the time and does not have energy like she used to. Does not report any change in fatigue since decreasing LEV in 2019 (in efforts to help fatigue). She recently was diagnosed with CKD stage 3 and osteoporosis. Current ASM: ZNS 100 mg qHS (9 PM) LEV 750 mg BID (9 AM/9 PM) CURRENT OUTPATIENT MEDICATIONS: Current Outpatient Medications Medication Sig alendronate (FOSAMAX) 70 mg tablet Take 70 mg by mouth one time a week. venlafaxine ER (EFFEXOR XR) 75 mg 24 hr capsule Take 1 capsule by mouth once daily. zonisamide (ZONEGRAN) 100 mg capsule Take 2 capsules by mouth daily at bedtime. amitriptyline (ELAVIL) 25 mg tablet Take 25 mg by mouth daily at bedtime. carvedilol (COREG) 12.5 mg tablet Take 12.5 mg by mouth twice daily with meals. levETIRAcetam (KEPPRA) 750 mg tablet TAKE 1 TABLET BY MOUTH TWICE A DAY ondansetron orally disintegrating (ZOFRAN ODT) 4 mg disintegrating tablet traMADol (ULTRAM) 50 mg tablet naproxen sodium (ALEVE ORAL) Take by mouth as needed. warfarin (COUMADIN) 4 mg tablet Take 1 tablet by mouth once daily. Omeprazole (PRILOSEC) 40 mg ORAL capsule Take 1 capsule by mouth once daily. No current facility-administered medications for this visit. NEUROLOGICAL EXAM: Pt is alert and oriented to person, place, and time. The pupils were symmetrical, round, and reactive to light and accommodation. The ocular ductions were full with no evidence for gaze evoked nystagmus. There was no evidence for facial asymmetry. Muscle tone was normal and there was no evidence for pronator drift or tremor. There is no focal weakness. PREVIOUS EVALUATIONS: [facility], 05/2015: Right Temporal Epilepsy Seizures: Aura -> Dialeptic Seizure Etiology: Unknown Associated Conditions: Mood Disorder (Depression), Pancreatic cancer (4 years remission) EEG Classification: Abnormal III (Awake, Sleep, 10-20 Scalp Electrodes, Anterior temporal electrodes) Interictal: 1. Intermittent Slow, Regional Right temporal Ictal: 1. EEG: EEG Seizure, Regional Right temporal Seizure: Aura 2. EEG: EEG Seizure, Regional Right temporal Seizure: No Clinical Signs 3. EEG: EEG Seizure, Regional Right temporal Seizure: Epileptic Seizure -> Aura -> Dialeptic Seizure Patient Management Discussion: Present at patient management conference were Chito Matias, Kalyan Mantilla, and myself (Dr. Larkin). The group agreed that the patient suffers from medically intractable epilepsy. 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 The MRI scan was reviewed by Dr. Salomón May who felt there was global volume loss and onaxial FLAIR images the right mesial temporal regions did look to have an increase in signal but this was not reproducedwith other sequences. There were three options discussed: 1. Continue with medication management as only two medication trials have been documented. 2. Right temporal lobectomy (based on EEG features and previous history of eugenie- vu aura); this would be a low morbidsurgery and would avoid the necessity for invasive evaluation which could be more complicated in view of her complex medical co-morbidities. 3. Perform ANTIONE and ictal SPECT to confirm the hypothesis of right temporal onset. These options will be discussed with the patient ? ASSESSMENT: Cassi Rodrigez is a 72 year old female with an evaluation suggestive for medically intractable focal epilepsy, s/p right temporal lobectomy 08/16/2015 (pathology: MUSHTAQ / [facility]CD). She is having ~ one auraper month, they do not bother her and she is not interested in making ASM adjustments. She has beenmore fatigued recently, possibly due to untreated SHELL and increased stress recently. I discussed the risks, benefits and alternatives of the medical plan with the patient. Questions were answered. The patient agreed with the plan as discussed. ? PLAN: - continue ZNS 200 mg qHS - continue LEV 750 mg BID - will check LEV and ZNS levels - discussed untreated SHELL with PCP - offered referral to psychology, she is not interested at this time but will let me know if she changes her mind - does not drive - follow up in 1 year, earlier as needed A total of 20 minutes was spent during the visit with greater than 50% of the time spent counselingand coordinating care of the above plan, discussing the following issues: medications and side effects as well as answering the patient's numerous questions. Lauren Otero APRN.CNP September 10, 2022 Patient also seen by Dr. Alejandro Villar. [facility] encounter[facility] History of Present illness Narrative* Kitty Vidal MD - 07/23/2022 10:00 AM EDT Images from the original note were not included. [facility] Department of Cardiovascular Medicine SECTION OF CARDIAC PACING and ELECTROPHYSIOLOGY OUTPATIENT VISIT DATE July 23, 2022 OUTPATIENT VISIT TYPE ESTABLISHED PRIMARY CARE PHYSICIAN: Broderick Joiner MD ([facility]) [address] [place], [place] [id number] CHIEF COMPLAINT: Pacemaker management HISTORY OF PRESENT ILLNESS: Ms. Rodrigez is a 68 year old female who presents today for follow-up visit -- accompanied by her . Describes chronic generalized fatigue. She denies chest pain, shortness of breath, orthopnea, cough, edema, palpitations, PND, lightheadedness or syncope. PAST CARDIAC HISTORY: PAST MEDICAL HISTORY Diagnosis Date Asthma, chronic Depression DJD (degenerative joint disease) HTN (hypertension) IBS (irritable bowel syndrome) SHELL (obstructive sleep apnea) Reflux Right leg DVT (HCC) 03/09/2013 Seizure (HCC) Seizures (HCC) PAST SURGICAL HISTORY Procedure Laterality Date ANTERIOR INTERBODY FUSION, CERVICAL APPENDECTOMY CHOLECYSTECTOMY PAST SURGICAL HISTORY OF 08/16/15 right frontal lobectomy SOCIAL HISTORY Social History Tobacco Use Smoking status: Never Smokeless tobacco: Never Vaping Use Vaping Use: Never used Substance Use Topics Alcohol use: No Drug use: No FAMILY HISTORY Problem Relation Age of Onset other (Liver Ca[other]) Father Breast Cancer Sister No Ocular Disease Other ALLERGIES: ALLERGIES Allergen Reactions Lyrica [Pregabalin] Rash Dexamethasone Rash MEDICATIONS: venlafaxine ER (EFFEXOR XR) 75 mg 24 hr capsule Take 1 capsule by mouth once daily. alendronate (FOSAMAX) 70 mg tablet Take 70 mg by mouth one time a week. levETIRAcetam (KEPPRA) 750 mg tablet Take 1 tablet by mouth twice daily. zonisamide (ZONEGRAN) 100 mg capsule Take 2 capsules by mouth daily at bedtime. amitriptyline (ELAVIL) 25 mg tablet Take 25 mg by mouth daily at bedtime. carvedilol (COREG) 12.5 mg tablet Take 12.5 mg by mouth twice daily with meals. ondansetron orally disintegrating (ZOFRAN ODT) 4 mg disintegrating tablet traMADol (ULTRAM) 50 mg tablet naproxen sodium (ALEVE ORAL) Take by mouth as needed. warfarin (COUMADIN) 4 mg tablet Take 1 tablet by mouth once daily. Omeprazole (PRILOSEC) 40 mg ORAL capsule Take 1 capsule by mouth once daily. REVIEW OF SYSTEMS: GENERAL: Negative for: Weight loss or gain, Fever or Chills, Weakness and Sleep difficulties. HEENT: Negative for: Headache, Impaired Vision, Glasses, Hearing Impairment, Ringing in Ears, Nosebleeds, Poor dental care, Bleeding Gums, Dentures NECK: Negative for: Swelling, Pain, Stiffness RESPIRATORY: Negative for: Cough, Blood in Sputum, Shortness of breath, Wheezing, Apnea GASTROINTESTINAL: Negative for: Trouble swallowing, Heartburn, Change in bowel habits, Blood in stool, Dark black stools MUSCULOSKELETAL: Negative for: Muscle or joint pain, Stiffness , Joint swelling NEUROLOGIC/PSYCHIATRIC: Negative for: Weakness, Paralysis, Numbness, Tingling, Tremor, Nervousness,Depressed mood, Memory loss SKIN: Negative for: Rashes, Itching HEMATOLOGICAL/LYMPHATIC: Negative for: Easy bruising , Easy bleeding ENDOCRINE: Negative for: Heat or cold intolerance, Excessive sweating, Frequent urination, Frequentthirst PHYSICAL EXAMINATION: There were no vitals taken for this visit. General: Well appearing, in no acute distress. Skin: No clubbing, no cyanosis. Eyes: Extra ocular movements intact Oropharynx: Teeth in good repair. Neck: No jugular venous distention, no carotid bruits, carotids have a normal upstroke, no palpablethyromegaly. Lungs: Clear to auscultation bilaterally, no wheezing or rhonchi. Chest: Right-sided pacemaker well-seated Heart: Regular rhythm, PMI not displaced, S1, S2 normal, no S3, no S4, no heaves, no rub and no murmur. Abdomen: Soft, nontender, bowel sounds normal, no palpable organomegaly, no bruits. Extremities: No peripheral edema . Grade 2/4 distal pulses bilaterally. Neuro: Oriented to person, place and time, alert, cooperative, gait coordinated. CARDIOVASCULAR MEDICINE TESTING: Electrocardiogram 07/23/2022: Atrial paced rhythm Device Check: Battery status is good. Lead parameters are stable. Histograms are blunted, but she does demonstrate rate response effects.. No atrial nor ventricular arrhythmia Labs Component Latest Ref Rng & Units 11/28/2021 WBC 3.70 - 11.00 k/uL 4.18 RBC 3.90 - 5.20 m/uL 4.19 Hemoglobin 11.5 - 15.5 g/dL 12.5 Hematocrit 36.0 - 46.0 % 39.7 MCV 80.0 - 100.0 fL 94.7 MCH 26.0 - 34.0 pG 29.8 MCHC 30.5 - 36.0 g/dL 31.5 RDW-CV 11.5 - 15.0 % 12.6 Platelet Count 150 - 400 k/uL 171 MPV 9.0 - 12.7 fL 8.9 (L) Neut% % 64.1 Abs Neut (ANC) 1.45 - 7.50 k/uL 2.67 Lymph% % 22.2 Abs Lymph 1.00 - 4.00 k/uL 0.93 (L) Canadian% % 7.7 Abs Canadian <0.87 k/uL 0.32 Eosin% % 5.3 Abs Eosin <0.46 k/uL 0.22 Baso% % 0.7 Abs Baso <0.11 k/uL 0.03 Nucleated Reds 0 /100 WBC 0.0 Absolute nRBC <0.01 k/uL <0.01 Diff Type Auto Diff Protein, Total 6.3 - 8.0 g/dL 6.4 Albumin 3.9 - 4.9 g/dL 4.1 Calcium 8.5 - 10.2 mg/dL 8.6 Bilirubin, Total 0.2 - 1.3 mg/dL 0.4 Alkaline Phosphatase 34 - 123 U/L 170 (H) AST 13 - 35 U/L 22 Glucose 74 - 99 mg/dL 159 (H) BUN 7 - 21 mg/dL 21 Creatinine 0.58 - 0.96 mg/dL 1.35 (H) Sodium 136 - 144 mmol/L 141 Potassium 3.7 - 5.1 mmol/L 4.3 Chloride 97 - 105 mmol/L 106 (H) CO2 22 - 30 mmol/L 27 Anion Gap 9 - 18 mmol/L 8 (L) ALT 7 - 38 U/L 14 eGFR- 47 eGFR-All Other Races . 39 I have personally reviewed the Electrocardiogram and Device Check. IMPRESSION: Ms. Rodrigez is a 72 year old female with epilepsy (since - managed w antiepileptic Rx - well controlled), remote pancreatic cancer (s/p whipple and chemo), symptomatic bradycardia (prior presyncope and limiting decreased exercise tolerance) due to significant sinus node dysfunction -- status post dual-chamber pacemaker. Overall doing very well. Though like before, she continues to endorse chronic fatigue symptoms. Reviewed with her recent blood tests. No obvious reason for her fatigue is apparent. We will check CBC and TSH. I did encourage her to increase activity levels, as though I suspect this will help improve her energy Blood pressure is in a good range. Remote pacemaker checks every 3 months In person follow-up with Mirian Tan in 12 months; alternating with me on an annual basis Kitty Vidal MD Electrophysiology documented in this encounterA[facility]02-22-[facility] Evaluation note* Encounter Date Diagnosis Assessment Notes Treatment Notes Treatment Clinical Notes Dec, Nausea (ICD-10 - R11.0) PATIENT STATES THAT THIS HAS IMPROVED. PATIENT TO CONTINUE ON THE AMITRIPTYLINE DOSE AT THIS TIME. [facility] Other 03-12-2015 History of Past illness Narrative* Problem Noted Date Resolved Date Seizure 01/24/2015 06/21/2018 documented as of this encounter (statuses as of 07/23/2022) [address]12-2015 History of Past illness Narrative* Problem Noted Date Resolved Date Seizure 01/24/2015 06/21/2018 documented as of this encounter (statuses as of 08/26/2022) [address]12-2015 History of Past illness Narrative* Problem Noted Date Resolved Date Seizure 01/24/2015 06/21/2018 documented as of this encounter (statuses as of 09/10/2022) [address]12[address]2015 History of Past illness Narrative* Problem Noted Date Resolved Date Seizure 01/24/2015 06/21/2018 documented as of this encounter (statuses as of 11/26/2022) [address]12[address]2015 History of Past illness Narrative* Problem Noted Date Resolved Date Seizure 01/24/2015 06/21/2018 documented as of this encounter (statuses as of 02/25/2023) [address]12[address]2015 History of Past illness Narrative* Problem Noted Date Diagnosed Date Resolved Date Seizure 01/24/2015 06/21/2018 documented as of this encounter (statuses as of 06/17/2023) [address]2015 History of Past illness Narrative* Problem Noted Date Diagnosed Date Resolved Date Seizure 01/24/2015 06/21/2018 documented as of this encounter (statuses as of 09/08/2023) [address]12[address]2015 History of Past illness Narrative* Problem Noted Date Diagnosed Date Resolved Date Seizure 01/24/2015 06/21/2018 documented as of this encounter (statuses as of 09/09/2023) [address]12[address]2015 History of Past illness Narrative* Problem Noted Date Diagnosed Date Resolved Date Seizure 01/24/2015 06/21/2018 documented as of this encounter (statuses as of 09/14/2023) [address]12[address]2015 History of Past illness Narrative* Problem Noted Date Diagnosed Date Resolved Date Seizure 01/24/2015 06/21/2018 documented as of this encounter (statuses as of 09/14/2023) [address]12-2015 History of Past illness Narrative* Problem Noted Date Diagnosed Date Resolved Date Seizure 01/24/2015 06/21/2018 documented as of this encounter (statuses as of 12/23/2023) [facility] Niki Mart[facility]nez [facility] August 05, 2023 8:09am Note Date/Time August 05, 2023 8:09am [facility] [address] [place], [place] [id number] Discharge Summary Signed Patient: Cassi Rodrigez MR#: [id number] : 1950 Acct:[id number] Age/Sex: 73 / F Adm Date: 3 Loc: 4N Room: [address] [place] [address]: Niki Martínez MD Copies to: DO Niki Martines MD~ Providers Date of Discharge: 08/05/23 Discharging Provider: Niki Martínez Primary Care Provider: Broderick Joiner Consults: 08/03/23 09:52 Consult to Occupational Therapy Routine Consult to Physical Therapy Routine Discharge Diagnosis (1) Lumbar stenosis with neurogenic claudication: Final Diagnosis Final Discharge Diagnosis: Lumbar stenosis with neurogenic claudication s/p lumbar decompression Summary Hospital Course Hospital course: Mrs. Rodrigez underwent lumbar decompression secondary to lumbar stenosis with neurogenic claudication. Her post-operative course has been uneventful; she reports resolution of her pre-operative leg pain. She is anxious to go home. Condition Condition at Discharge: Stable Status at Discharge Functional status at discharge: uses cane/walker Overall status at discharge: patient is progressing back to baseline Time Spent with Patient Time spent providing/coordinating discharge services (# min): 20 Specific discharge activities: Mrs. Rodrigez must walk multiple times daily. She should eat a well balanced diet and drink lots of fluids; avoid constipation. Surgeries and Procedures Operation Date: 08/03/23 07:30 Actual Procedures p OR Lumbar Decompression L3-L4, L4-L5(Not Applicable) - Niki Martínez MD Complications Complications: None Diagnostic Studies Completed and Pending Studies Labs on day of discharge: 08/05/23 05:34: PHA Creatinine Clear 38.09, Sodium 139, Potassium 4.4, Chloride 111 H, Carbon Dioxide 25.2, Anion Gap 7.2, BUN 25, Creatinine 1.43 H, Est GFR (CKD- EPI) 38.727, Glucose 121 H, Calcium 8.1 L 08/05/23 05:34: Corrected WBC 7.3, Uncorrected WBC Count 7.3, RBC 3.14 L, Hgb 10.0 L, Hct 29.9 L, MCV 95.1, MCH 31.9, MCHC 33.5, RDW 13.5, Plt Count 147 L, MPV 7.6, Neut % (Auto) 77.1, Lymph % (Auto) 11.8, Canadian % (Auto) 9.2, Eos % (Auto) 1.7, Baso % (Auto) 0.2, Nucleat RBC Rel Count 0.4, Neut # (Auto) 5.6, Lymph # (Auto) 0.9 L, Canadian # (Auto) 0.7, Eos # (Auto) 0.1, Baso # (Auto) 0.0 Exam Physical Exam Vital Signs: Temp Pulse Resp BP Pulse Ox O2 Del Method O2 Flow Rate 97.8 F 63 14 117/73 97 Room Air 3 08/05/23 07:21 08/05/23 07:21 08/05/23 07:21 08/05/23 07:21 08/05/23 07:08/05/23 07:08/04/23 00:00 Narrative: Mrs. Rodrigez was resting comfortably in bed supine at the time of my visit this morning. She was pleasant and cooperative during the examination. Const General: cooperative, comfortable and no acute distress Nutritional Appearance: overweight Orientation: alert, awake and oriented x3 HEENT Head: normal to inspection Ears: hearing grossly normal bilaterally Nose: external nose normal Face and sinus: normal facial exam Mouth: oral mucosae normal Eyes General: appearance normal, both eyes and all related structures (Wears glasses) EOM: EOM intact bilaterally Neck Neck: full ROM Resp Effort & Inspection: normal respiratory effort Musc Thoracic/Lumbar Spine: surgical scar(s) present (Incision site is intact; hemovac exit site has dressing applied) Neuro General: patient alert, patient awake and patient oriented x3 Cognition: normal cognition Speech: speech normal Gait: normal gait Motor: muscle tone normal throughout and strength 5/5 throughout Extrem General: full ROM Psych Appearance: grossly normal Mental Status: mental status grossly normal Mood: congruent mood Affect: normal affect Speech and Movement: speech and movement normal Attitude: cooperative Thought Process: normal Thought Content: normal Insight: insight good Judgment: judgment good Discharge Plan Discharge Plan Patient Disposition: Home Activity: Ambulate as Tolerated Comment: Mrs. Rodrigez must walk multiple times daily Diet: Regular Comment: Use Miralax to encourage bowel movements; drink lots of fluids Additional Instructions: Eat a well balanced diet Instructions: Spinal Stenosis (DC) Prescriptions: New tizanidine 4 mg Tablet 4 mg PO BID PRN (Reason: Muscle Spasm) 14 Days Qty: 28 1RF hydrocodone-acetaminophen 5-325 mg Tablet 1 tab PO Q6H PRN (Reason: Pain Scale 1 - 5) 14 Days Qty: 56 0RF No Action carvedilol 12.5 mg tablet 12.5 mg PO BID Patient Comments: TAKE 1 TABLET BY MOUTH TWICE A DAY amlodipine 5 mg tablet 5 mg PO QAM Patient Comments: TAKE 1 TABLET BY MOUTH EVERY DAY amitriptyline 10 mg tablet 15 mg PO QHS Patient Comments: TAKE 1.5 TABLETS BY MOUTH EVERY DAY warfarin 2 mg Tablet 2 mg PO QMWFSU omeprazole 40 mg capsule,delayed release(DR/EC) 40 mg PO QAM losartan 25 mg tablet 25 mg PO QAM Patient Comments: TAKE 1 TABLET BY MOUTH EVERY DAY venlafaxine 150 mg capsule,extended release 24hr 150 mg PO QAM Patient Comments: TAKE 1 CAPSULE BY MOUTH EVERY DAY acetaminophen [Tylenol Extra Strength] 500 mg Capsule 1,000 mg PO Q6H PRN (Reason: Pain) enoxaparin [Lovenox] 100 mg/mL Syringe 90 mg subcut DAILY warfarin 4 mg tablet 4 mg PO QTUTHSA zonisamide 100 mg capsule 200 mg PO DAILY levetiracetam 750 mg tablet 750 mg PO BID Patient Comments: TAKE 1 TABLET BY MOUTH TWICE A DAY ondansetron 4 mg tablet,disintegrating 4 mg PO Q8H PRN (Reason: Nausea) Follow Up: Niki Martínez MD [Active Staff] - 08/16/23 10:00 am Documented By: Niki Martínez MD 08/05/23 080 5 Signed By: <Electronically signed by Niki Martínez MD> 08/05/23 0809 [facility] Work Phone: Evaluation note* Diagnosis Chronic fatigue- Primary Other malaise and fatigue documented in this encounter [facility]* Diagnosis Partial epilepsy with impairment of consciousness, intractable (HCC) Localization-related (focal) (partial) epilepsy and epileptic syndromes with complex partial seizures, with intractable epilepsy documented in this encounter [facility] noteNo assessment information [facility] Work Phone: Evaluation noteNo InformationNortEncompass Health [facility] [employer] Other evaluation note* Diagnosis Onset Date Resolution Status Lumbar stenosis with neurogenic claudication [facility] Work Phone: Evaluation note* Diagnosis Sinus node dysfunction (HCC)- Primary Sinoatrial node dysfunction Cardiac pacemaker in situ Bradycardia Other specified cardiac dysrhythmias documented in this encounter [facility]* Diagnosis Partial epilepsy with impairment of consciousness, intractable (HCC) Localization-related (focal) (partial) epilepsy and epileptic syndromes with complex partial seizures, with intractable epilepsy documented in this encounter [facility]* Diagnosis Pacemaker [Z95.0]- Primary Cardiac pacemaker in situ documented in this encounter [facility] note* Diagnosis Intractable 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 aura and without status migrainosus- Primary Chronic migraine without aura, with intractable migraine, so stated, without mention of status migrainosus documented in this encounter [facility] general Narrative - Reported* Type Description Date Surgical History back surgery-2 Surgical History cervical fusion Surgical History cholecystectomy Surgical History whipple procedure 2010 Surgical History appendectomy Surgical History hammer toe Surgical History rotator cuff-left Surgical History temporal lumpectomy Hospitalization History see surgical hx [facility]erged With [facility] [employer] Other History general Narrative - Reported* Type Description Date Medical History Lumbar spondylosis Medical History Retinal hemorrhage, bilateral Medical History Major depression, recurrent Medical History Epilepsy seizure, generalized, c onvulsive Medical History BPPV (benign paroxysmal position al vertigo), left Medical History Thyroid nodule Medical History Menopause Medical History Vitamin D deficiency Medical History Osteoporosis Medical History Fatigue, unspecified type Medical History Nausea alone Medical History High risk medication use Medical History Obesity Medical History Obstructive sleep apnea Medical History Encounter for [facility] exam with routine gynecological exam Medical History Hypertensive chronic kidney disease with stage 1 through stage 4 chronic kidney disease, or unspecified chronic kidney disease Medical History Stage 3b chronic kidney disease (CKD) Medical History Nausea and vomiting in adult Medical History Tear of left supraspinatus tendo n Medical History Migraine with aura a nd without status migrainosus, not intractable Medical History Lower extremity edema Medical History Adhesive capsulitis of left shou lder Medical History Essential hypertension Medical History Current use of lobsterman anticoa gulation Medical History History of pancreatic cancer Medical History History of deep vein thrombosis Medical History Cervical spondylosis Medical History Chest tightness Medical History Gastroesophageal ref lux disease with esophagitis without hemorrhage Surgical History back surgery-2 Surgical History cervical fusion Surgical History cholecystectomy Surgical History whipple procedure 2010 Surgical History appendectomy Surgical History hammer toe Surgical History rotator cuff-left Surgical History temporal lumpectomy Hospitalization History see surgical hx [employer] Other History general Narrative - Reported* Type Description Date Medical History Lumbar spondylosis Medical History Retinal hemorrhage, bilateral Medical History Major depression, recurrent Medical History Epilepsy seizure, generalized, c onvulsive Medical History BPPV (benign paroxysmal position al vertigo), left Medical History Thyroid nodule Medical History Menopause Medical History Vitamin D deficiency Medical History Osteoporosis Medical History Fatigue, unspecified type Medical History Nausea alone Medical History High risk medication use Medical History Obesity Medical History Obstructive sleep apnea Medical History Encounter for [facility] exam with routine gynecological exam Medical History Hypertensive chronic kidney disease with stage 1 through stage 4 chronic kidney disease, or unspecified chronic kidney disease Medical History Stage 3b chronic kidney disease (CKD) Medical History Nausea and vomiting in adult Medical History Tear of left supraspinatus tendo n Medical History Migraine with aura a nd without status migrainosus, not intractable Medical History Lower extremity edema Medical History Adhesive capsulitis of left shou lder Medical History Essential hypertension Medical History Current use of lobsterman anticoa gulation Medical History History of pancreatic cancer Medical History History of deep vein thrombosis Medical History Cervical spondylosis Medical History Chest tightness Medical History Gastroesophageal ref lux disease with esophagitis without hemorrhage Medical History appendectomy Medical History Arthritis Medical History Asthma Medical History cancer-Pancreatic Medical History cataracts Medical History epilepsy Medical History gall bladder disease Medical History heart disease Medical History high blood pressure Medical History kidney disease Medical History migraine headaches Medical History osteoporosis Medical History pacemaker Medical History chronic depression Medical History DVT Surgical History back surgery-2 Surgical History cervical fusion x3 Surgical History cholecystectomy Surgical History whipple procedure 2010 Surgical History appendectomy Surgical History hammer toe Surgical History rotator cuff-left Surgical History temporal lumpectomy Surgical History Stents Surgical History cardiac pacemeker Surgical History Port removal Hospitalization History see surgical hx [employer] Other History general Narrative - Reported* Type Description Date Medical History Lumbar spondylosis Medical History Retinal hemorrhage, bilateral Medical History Major depression, recurrent Medical History Epilepsy seizure, generalized, c onvulsive Medical History BPPV (benign paroxysmal position al vertigo), left Medical History Thyroid nodule Medical History Menopause Medical History Vitamin D deficiency Medical History Osteoporosis Medical History Fatigue, unspecified type Medical History Nausea alone Medical History High risk medication use Medical History Obesity Medical History Obstructive sleep apnea Medical History [facility] with [facility] exam Medical History Hypertensive chronic kidney disease with stage 1 through stage 4 chronic kidney disease, or unspecified chronic kidney disease Medical History Stage 3b chronic kidney disease (CKD) Medical History Nausea and vomiting in adult Medical History Tear of left supraspinatus tendo n Medical History Migraine with aura a nd without status migrainosus, not intractable Medical History Lower extremity edema Medical History Adhesive capsulitis of left shou lder Medical History Essential hypertension Medical History Current use of half-way anticoa gulation Medical History History of pancreatic cancer Medical History History of deep vein thrombosis Medical History Cervical spondylosis Medical History Chest tightness Medical History Gastroesophageal ref lux disease with esophagitis without hemorrhage Medical History appendectomy Medical History Arthritis Medical History Asthma Medical History cancer-Pancreatic Medical History cataracts Medical History epilepsy Medical History gall bladder disease Medical History heart disease Medical History high blood pressure Medical History kidney disease Medical History migraine headaches Medical History osteoporosis Medical History pacemaker Medical History chronic depression Medical History DVT Surgical History back surgery-2 Surgical History cervical fusion x3 Surgical History cholecystectomy Surgical History whipple procedure 2011 Surgical History appendectomy Surgical History hammer toe Surgical History rotator cuff-left Surgical History temporal lumpectomy Surgical History Stents Surgical History cardiac pacemeker Surgical History Port removal Surgical History Lumbar decompressive laminectom y L4-5 07/2023 Hospitalization History see surgical hx [facility] Other Hospital Discharge instructions Additional Instructions Eat a well balanced [facility] Work Phone: Progress note Author Niki Martínez [facility] August 05, 2023 8:00am Note Date/Time August 05, 2023 8:00am [facility] [address] [place] [address] Neurosurgery Progress Note Signed Patient: Cassi Rodrigez MR#: [id number] : 1950 Acct:[id number] Age/Sex: 73 / F Adm Date: 3 Loc: 4N Room: 9F7129-6 Type: REG [facility] Attending Dr: Niki Martínez MD Copies to: ~ Date of Service: 08/05/2023 Subjective Subjective HPI: Mrs. Rodrigez states she slept in the chair last night as she found the bed very uncomfortable. She states she has walked without difficulty and is anxious to gohome today. Exam Physical Exam Vital Signs: Temp Pulse Resp BP Pulse Ox O2 Del Method O2 Flow Rate 97.8 F 63 14 117/73 97 Room Air 3 08/05/23 07:21 08/05/23 07:21 08/05/23 07:21 08/05/23 07:21 08/05/23 07:21 08/05/23 07:21 08/04/23 00:00 Narrative: Mrs. Rodrigez was resting comfortably in bed supine at the time of my visit this morning. She was pleasant and cooperative during the examination. Const General: cooperative, comfortable and no acute distress Nutritional Appearance: overweight Orientation: alert, awake and oriented x3 HEENT Head: normal to inspection Ears: hearing grossly normal bilaterally Nose: external nose normal Face and sinus: normal facial exam Mouth: oral mucosae normal Eyes General: appearance normal, both eyes and all related structures (Wears glasses) EOM: EOM intact bilaterally Neck Neck: full ROM Resp Effort & Inspection: normal respiratory effort Musc Thoracic/Lumbar Spine: surgical scar(s) present (Incision site is intact; hemovac exit site has dressing applied) Neuro General: patient alert, patient awake and patient oriented x3 Cognition: normal cognition Speech: speech normal Gait: normal gait Motor: muscle tone normal throughout and strength 5/5 throughout Extrem General: full ROM Psych Appearance: grossly normal Mental Status: mental status grossly normal Mood: congruent mood Affect: normal affect Speech and Movement: speech and movement normal Attitude: cooperative Thought Process: normal Thought Content: normal Insight: insight good Judgment: judgment good Objective Lab Results Most Recent Labs: 08/05/23 05:34: PHA Creatinine Clear 38.09, Sodium 139, Potassium 4.4, Chloride 111 H, Carbon Dioxide 25.2, Anion Gap 7.2, BUN 25, Creatinine 1.43 H, Est GFR (CKD- EPI) 38.727, Glucose 121 H, Calcium 8.1 L 08/05/23 05:34: Corrected WBC 7.3, Uncorrected WBC Count 7.3, RBC 3.14 L, Hgb 10.0 L, Hct 29.9 L, MCV 95.1, MCH 31.9, MCHC 33.5, RDW 13.5, Plt Count 147 L, MPV 7.6, Neut % (Auto) 77.1, Lymph % (Auto) 11.8, Canadian % (Auto) 9.2, Eos % (Auto) 1.7, Baso % (Auto) 0.2, Nucleat RBC Rel Count 0.4, Neut # (Auto) 5.6, Lymph # (Auto) 0.9 L, Canadian # (Auto) 0.7, Eos # (Auto) 0.1, Baso # (Auto) 0.0 Assessment/Plan Assessment/Plan (1) Lumbar stenosis with neurogenic claudication: Plan: Mrs. Rodrigez is s/p lumbar decompression. She is doing well and will be discharged home today. She will receive prescriptions for Hydrocodone 5/325mg p.o. q 6hours prn and Tizanidine 4 mg p.o bid prn. The dressing overlying the drain exit site can be removed tomorrow morning (Mr. Rodrigez has been instructed). Mrs. Rodrigez has been instructed to walk multiple times daily and to avoid constipation. She will follow-up with me in early August. Code(s): M48.062 - Spinal stenosis, lumbar region with neurogenic claudication Status: Acute Time Spent With Patient (min): 20 Documented By: Niki Martínez MD 08/05/23 075 5 Signed By: <Electronically signed by Niki Martínez MD> 08/05/23 0800 [facility] Work Phone: Reason for referral (narrative)* Outpatient Procedure (Routine) - Closed Specialty Diagnoses / Procedures Referred By Contradha t Referred To [facility] Diagnoses Chronic fatigue Procedures ECG COMPLETE ECG ROUTINE ECG W/LEAST 12 LDS W/I&[place] [address] [place] [address] [facility] [place] [address] [place] [id number] Referral ID Status Reason Start Date Expiration Date V isits Requested Visits Authorized [id number] Closed Auto-Generate d Referral 07/23/2022 07/23/2023 1 1 [facility] Outpatient Procedure (Routine) - Pending Review Specialty Diagnoses / Procedures Referred By Saturnino t Referred To Contact [facility] Diagnoses Sinus node dysfunction (HCC) Cardiac pacemaker in situ Bradycardia Procedures ECG COMPLETE ECG ROUTINE ECG W/LEAST 12 LDS W/I&R Mirian Tan APRN.CNP [address] [place] [address] [facility] [address] [place] [address] Referral ID Status Reason Start Date Expiration Date Visits Requested Visits Authorized [id number] Pending Review Auto-Generat ed Referral 3 09/07/2024 1 1 [facility] Summary Purpose Family History Relationship Condition Age at Onset Recorded Date/T miguel father Malignant neoplasm of pancreas Unknown brother Malignant neoplasm of pancreas Unknown Not Specified Malignant neoplasm of breast Unknown Relationship Condition Age at Onset Recorded Date/T miguel father Malignant neoplasm of pancreas Unknown brother Malignant neoplasm of pancreas Unknown Not Specified Malignant neoplasm of breast Unknown family member Unknown Advance Directives Advance Directive Response Recorded Date/ Time Advance Directives No September 15, 2019 12:04pm Chief Complaint and Reason for Visit Chief Complaint m47.27 Chief Complaint m47.27 m47.27 Chief Complaint m47.27 m47.27 stenosis Chief Complaint m47.27 m47.27 stenosis stenosis Reason for Visit Lumbar stenosis with neurogenic claudication Chief Complaint Cough , Drainage For Weeks [phone] BACK ISSUES Reason for Referral Specialty Diagnoses / Procedures Referred By Saturnino bhatia Referred To Contact [facility] Diagnoses Intractable 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 aura and without status migrainosus Procedures CONSULT TO [facility] CLINIC OFFICE/OUTPATIENT [facility] 60 MINUTES Lauren Otero, CONNIE.DOCKET CLERK [address] [place] [address] Neur [facility] Main [address] [place] [address] Referral ID Status Reason Start Date Expiration Date Visits Requested Visits Authorized [id number] Authorized PCP Requested Referral 12/23/2023 12/22/2024 1 1 Additional Source Comments REASON FOR VISIT (unrecogniz ed section and content) Reason Comments Cardiology Follow Up Reason Comments Established Patient 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 Patient [facility] she has been stable since last visit. Source Comments (unrecognize d section and content) In the event this informatio n is protected by the Federal Confidentiality of Alcohol and Drug Abuse Patient Records regulations: The Federal rules restrict any use of the information to criminally investigate or prosecute any alcohol or drug abuse patient.[facility] the event this information is protected by the Federal Confidentiality of Alcohol and Drug Abuse Patient Records regulations: The Federal rules restrict any use of the information to criminally investigate or prosecute any alcohol or drug abuse patient.[facility] the event this information is protected by the Federal Confidentiality of Alcohol and Drug Abuse Patient Records regulations: The Federal rules restrict any use of the information to criminally investigate or prosecute any alcohol or drug abuse patient.[facility] the event this information is protected by the Federal Confidentiality of Alcohol and Drug Abuse Patient Records regulations: The Federal rules restrict any use of the information to criminally investigate or prosecute any alcohol or drug abuse patient.[facility] the event this information is protected by the Federal Confidentiality of Alcohol and Drug Abuse Patient Records regulations: The Federal rules restrict any use of the information to criminally investigate or prosecute any alcohol or drug abuse patient.[facility] the event this information is protected by the Federal Confidentiality of Alcohol and Drug Abuse Patient Records regulations: The Federal rules restrict any use of the information to criminally investigate or prosecute any alcohol or drug abuse patient.[facility] the event this information is protected by the Federal Confidentiality of Alcohol and Drug Abuse Patient Records regulations: The Federal rules restrict any use of the information to criminally investigate or prosecute any alcohol or drug abuse patient.[facility] the event this information is protected by the Federal Confidentiality of Alcohol and Drug Abuse Patient Records regulations: The Federal rules restrict any use of the information to criminally investigate or prosecute any alcohol or drug abuse patient.[facility] Hospital[facility] the event this information is protected by the Federal Confidentiality of Alcohol and Drug Abuse Patient Records regulations: The Federal rules restrict any use of the information to criminally investigate or prosecute any alcohol or drug abuse patient.[facility] HospitalIn the event this information is protected by the Federal Confidentiality of Alcohol and Drug Abuse Patient Records regulations: The Federal rules restrict any use of the information to criminally investigate or prosecute any alcohol or drug abuse patient.[facility] the event this information is protected by the Federal Confidentiality of Alcohol and Drug Abuse Patient Records regulations: The Federal rules restrict any use of the information to criminally investigate or prosecute any alcohol or drug abuse patient.[facility] Teams (unrecognized sec tion and content) Telecommunications Project Manager Relationship Specialty Start Date End Date Broderikc Joiner, DO [address] [place] [address] PCP - General Internal Medicine 09/21/18 Kitty Beraux MD [address] [place] [address] Primary Staff Physician Cardiology 01/31/19 Telecommunications Project Manager Relationship Specialty Start Date End Date Broderick Joiner, DO [address] [place] [address] PCP - General Internal Medicine 09/21/18 Kitty Breaux MD [address] [facility] [place] [place] [address] Primary Staff Physician Cardiology 01/31/19 Telecommunications Project Manager Relationship Specialty Start Date End Date Broderick Joiner, DO [address] [place] [address] PCP - General Internal Medicine 09/21/18 Kitty Breaux MD [address] [facility] [place] [place] [address] Primary Staff Physician Cardiology 01/31/19 Telecommunications Project Manager Relationship Specialty Start Date End Date Broderick Joiner, DO [address] [place] [address] PCP - General Internal Medicine 09/21/18 Kitty Breaux MD [address] [facility] [place] [place] [address] Primary Staff Physician Cardiology 01/31/19 Telecommunications Project Manager Relationship Specialty Start Date End Date Broderick Joiner, DO [address] [place] [address] PCP - General Internal Medicine 09/21/18 Kitty Breaux MD [address] [place] [address] Primary Staff Physician Cardiology 01/31/19 Team Status: Active Member Role Status Dates Broderick Joiner DO Primary Care Provider Active Team Status: Inactive Member Role Status Dates Broderick Joiner DO Primary Care Provider, Attending Pr ovider Active Telecommunications Project Manager Relationship Specialty Start Date End Date Broderick Joiner DO [address] [place] [address] PCP - General Internal Medicine 09/21/18 Kitty Breaux MD [address] [place] [id number] Primary Staff Physician Cardiology 01/31/19 Team Status: Inactive Member Role Status Dates Broderick Joiner DO Primary Care Provider Active Niki Martínez MD Attending Provider Active Telecommunications Project Manager Relationship Specialty Start Date End Date Broderick Joiner DO [address] [place] [id number] PCP - General Internal Medicine 09/21/18 Kitty Breaux MD [address] [place] [address] Primary Staff Physician Cardiology 01/31/19 Telecommunications Project Manager Relationship Specialty Start Date End Date Broderick Joiner DO [address] [id number] PCP - General Internal Medicine 09/21/18 Kitty Braeux MD [address] [place] [address] Primary Staff Physician Cardiology 01/31/19 Telecommunications Project Manager Relationship Specialty Start Date End Date Broderick Joiner DO [address] [place] [address] PCP - General Internal Medicine 09/21/18 Kitty Breaux MD [address] [place] [address] Primary Staff Physician Cardiology 01/31/19 Telecommunications Project Manager Relationship Specialty Start Date End Date Broderick Joiner DO [address] [id number] PCP - General Internal Medicine 09/21/18 Kitty Breaux MD [address] [place] [address] Primary Staff Physician Cardiology 01/31/19 Telecommunications Project Manager Relationship Specialty Start Date End Date Broderick Joiner DO [address] [id number] PCP - General Internal Medicine 09/21/18 Kitty Breaux MD [address] [place] [id number] Primary Staff Physician Cardiology 01/31/19 Team Status: Inactive Member Role Status Dates Broderick Joiner DO Attending Provider Active Sta rt: November 24, 2023 End: November 24, 2023 Team Status: Inactive Member Role Status Dates Broderick Joiner DO Primary Care Provide r, Attending Provider Active Start: February 09, 2024 End: February 09, 2024 INFORMATION SOURCE (unrecogn ized section and content) DATE CREATED AUTHOR 07/24/2022 [facility] DATE CREATED AUTHOR AUTHOR'S ORGANIZ ATION 04/23/2023 [facility] DATE CREATED AUTHOR AUTHOR'S ORGANIZ ATION 06/11/2023 [facility] DATE CREATED AUTHOR AUTHOR'S ORGANIZ ATION 08/19/2023 [facility] DATE CREATED AUTHOR AUTHOR'S ORGANIZ ATION 09/14/2023 [facility] DATE CREATED AUTHOR AUTHOR'S ORGANIZ ATION 12/24/2023 [facility] (unrecognized section and content) Goals may be documented in a n alternate section FOR RECORDS PERTAINING TO PATIENTS WHO ARE OR HAVE BEEN ENROLLED IN A CHEMICAL DEPENDENCY/SUBSTANCEABUSE PROGRAM, SOME INFORMATION MAY BE OMITTED. This clinical summary was aggregated from multiple sources. Caution should be exercised in using it in the provision of clinical care. This summary normalizes information from multiple sources, and as a consequence, information in this document may materially change the coding, format and clinical context of patient data. In addition, data may be omitted in some cases. CLINICAL DECISIONS SHOULD BE BASED ON THE PRIMARY CLINICAL RECORDS. [employer] provides no warranty or guarantee of the accuracy or completeness of information in this document.
[2024-03-03 09:52] LABS: Basophils Percent Auto 0.7 % (0.2-2.0); Eosinophils Absolute Auto 0.3 10^3/uL (0.0-0.7); Eosinophils Percent Auto 10.8 % (0.9-7.0); Hematocrit 38.8 % (36.0-48.0); Hemoglobin 11.9 g/dL (12.0-16.0); Lymphocytes Absolute Auto 0.8 10^3/uL (1.2-3.8); Lymphocytes Percent Auto 27.6 % (20.5-60.0); Mean Corpuscular HGB Conc 30.7 g/dL (29.9-35.2); Mean Corpuscular Hemoglobin 28.8 pg (26.7-34.0); Mean Corpuscular Volume 93.9 fL (81.0-99.0); Mean Platelet Volume 9.4 fL (9.5-13.5); Monocytes Absolute Auto 0.3 10^3/uL (0.3-0.8); Monocytes Percent Auto 9.7 % (1.7-12.0); Neutrophils Absolute Auto 1.4 10^3/uL (1.4-6.5); Neutrophils Percent Auto 51.2 % (43.0-75.0); Platelet Count 203 10^3/uL (150-450); Red Blood Count 4.13 10^6/uL (4.20-5.40); Red Cell Distribution Width 13.5 % (11.0-15.0); White Blood Count 2.8 10^3/uL (4.0-11.0)
[2024-03-03 10:27] LABS: Alanine Aminotransferase 21 U/L (14-59); Albumin Globulin Ratio 0.9; Albumin Level 3.3 g/dL (3.4-5.0); Alkaline Phosphatase 155 U/L (46-116); Anion Gap 15.9; Aspartate Amino Transferase 25 U/L (15-37); BUN Creatinine Ratio 16.7; Bilirubin Total 0.4 mg/dL (0.2-1.0); Carbon Dioxide 21.4 mmol/L (21.0-32.0); Chloride 106 mmol/L (98-107); Estimated GFR (African America 41 (>=60); Estimated GFR (Non-African Ame 34 (>=60); Globulin 3.6 g/dL; Glucose 113 mg/dL (74-106); Potassium 4.3 mmol/L (3.5-5.1); Sodium 139 mmol/L (136-145); Total Protein 6.9 g/dL (6.4-8.2)
[2024-03-03 12:14] LABS: Percent Iron Saturation 7.7 %
[2024-03-06 15:07] LABS: Albumin 3.5 g/dL (2.9-4.4); Alpha-1-Globulin 0.3 g/dL (0.0-0.4); Alpha-2-Globulin 0.7 g/dL (0.4-1.0); Free Kappa Lt Chains,S 44.7 mg/L (3.3-19.4); Free Lambda Lt Chains,S 38.7 mg/L (5.7-26.3); Gamma Globulin 0.8 g/dL (0.4-1.8); Immunoglobulin A, Qn, Serum 265 mg/dL (64-422); Immunoglobulin G, Qn, Serum 911 mg/dL (586-1602); Immunoglobulin M, Qn, Serum 64 mg/dL (26-217); Kappa/Lambda Ratio,S 1.16 (0.26-1.65); Protein, Total 6.2 g/dL (6.0-8.5)
== END 2024-03-03 09:19 | disposition home or self-care (01) ==
LOC: LAB 09:21
PROVIDERS: PCP Internal Medicine; Visit Provider Internal Medicine
DX: I12.9 Hypertensive chronic kidney disease with stage 1 through stage 4 chronic kidney disease, or unspecified chronic kidney disease (principal); N18.9 Chronic kidney disease, unspecified; D64.9 Anemia, unspecified; R53.83 Other fatigue
CPT/HCPCS: 36415; 80053; 82607; 82728; 82746; 83540; 83550; 85025

== ENCOUNTER 2024-03-15 04:34 | Outpatient (RCR) | payer OTHER, SELFPAY | END 2024-04-14 11:49 | disposition home or self-care (01) | LOC: MM 04:34 | PROVIDERS: PCP Internal Medicine; Visit Provider Internal Medicine | DX: Z51.81 Encounter for therapeutic drug level monitoring (principal); Z79.01 Long term (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 of anticoagulants | CPT/HCPCS: 85610; G0463 ==

== ENCOUNTER 2024-04-17 00:18 | Outpatient (RCR) | payer OTHER, SELFPAY | END 2024-05-12 11:04 | disposition home or self-care (01) | LOC: MM 00:18 | PROVIDERS: PCP Internal Medicine; Visit Provider Internal Medicine | DX: Z51.81 Encounter for therapeutic drug level monitoring (principal); Z79.01 Long term (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 of anticoagulants | CPT/HCPCS: 85610; G0463 ==

== ENCOUNTER 2024-05-04 12:17 | Outpatient (OUT) | payer OTHER, SELFPAY ==
--- NOTE | 2024-05-04 12:23 | PM.CN ---
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 Patient reports spinal surgery with Dr Weeks 08/07, unknown surgery, and has been evaluated by Dr Le as she has had severe back and right leg pain since October 2023. Patient has been unable to tolerate HEP or PT due to severe pain. Recent lumbar MRI without contrast completed at [facility], we have requested records. Pain today 10/10 in low back and right leg burning throbbing. Patient on warfarin cannot take NSAIDs, currently on zonisamide 300mg HS, amitriptyline, venlafaxine, and PRN tylenol without improvement. has failed gabapentin, allergy to lyrica. Pain increased with all activity and weight bearing. Denies falls. cc:: CC: Tiana Brush NP Review of Systems ROS Status of ROS 10 or more systems reviewed and unremarkable except as noted in history and below Musculoskeletal Reports: back pain, extremity pain and joint pain Meds Home Medications and Allergies Allergies Allergy/AdvReac Type Severity Reaction Status Date / Time dexamethasone Allergy Unknown Verified 05/04/24 13:23 pregabalin [From Lyrica] Allergy Unknown Verified 05/04/24 13:23 Exam Constitutional Documenting provider has reviewed patient's vital signs: yes Common normals: no apparent distress, oriented x3, healthy appearing, alert and well nourished General appearance: cooperative HENHI Common normals: normocephalic, hearing grossly normal bilaterally and moist oral mucous membranes Head and scalp: normocephalic Eye Common normals: PERRL Pupil: PERRL Neck & C-Spine Common normals: full ROM General: normal visual inspection Chest Common normals: inspection of chest normal Respiratory Common normals: normal respiratory effort, no retractions and no use of accessory muscles Back & Pelvis Lumbar spine/lower back: ROM limited, pain with ROM, lumbar spinal tenderness, paraspinal muscle tenderness and straight leg raise positive right Sacroiliac joints: SI joint(s) abnormal Other: right sij positive emmy(patricks), gaenslens, thigh thrust, compression test decreased sensation to right L3,4,5,S1 pattern strength 3.5/5 in RLE Extremity Common normals: normal to inspection and full ROM Neuro Common normals: oriented x3, CN's II-XII intact bilaterally, moves all extremities, no focal motor deficits, no sensory deficits noted and deep tendon reflexes 2+ bilaterally Sensorium/orientation: alert Gait (neuro): assistive device used cane Motor exam: no movement abnormalities noted and strength abnormal Psych Common normals: mental status grossly normal, thought process normal, cooperative, affect normal, speech normal and activity/motor behavior normal Speech: normal speech Thought process: normal thought process Results Imaging lumbar MRI: Attestation: I have reviewed the pertinent imaging results. Radiologist's impression: multilevel moderate to severe central canal and foraminal narrowing L5-S1 posrior decompression and intervertebral fusion Additional Findings Additional findings: If on a controlled substance or opioids, I have checked an [place] report on this patient and there are no aberrancies noted in the prescribing history.??If on a controlled substance or opioid a drug screen was completed and reviewed within the last year, and if there has not been a drug screen completed we ordered one today to monitor higher risk, state monitored pain medication use. As part of providing excellent, safe, comprehensive care, the following was completed at our patient's visit: 1. A medication reconciliation and review to ensure accurate knowledge of current/active medications, including asking our patients to inform us about any [id number] medications or herbal remedies/nutritional supplements/alternative remedies. 2. A review to specifically ensure our patients have had annual screening for screening for depression, screening for tobacco use, and screening for unhealthy alcohol use. For concerning screenings had a discussion with the patient, provided patient education, and recommended follow-up with primary care provider when appropriate. If patient noted with a risk of falling, they received education on strength, gait, and balance training to prevent future risk of falling. Assessment and Plan Assessment and Plan (1) Lumbar stenosis with neurogenic claudication: (2) Sacroiliitis: (3) Post laminectomy syndrome: Plan Right L3-4 L4-5 TFESI under fluoroscopy, risks vs benefits reviewed, to be completed with 10mg PO Valium due to anxiety Right SIJ injection under fluoroscopy, risks vs benefits reviewed, to be completed with 10mg PO Valium due to anxiety cannot take NSAIDs, chronic warfarin continue medications through PCP f/u 2 weeks after injections completed
== END 2024-05-04 12:18 | disposition home or self-care (01) ==
PROVIDERS: PCP Internal Medicine; Visit Provider Nurse Practitioner
DX: M48.062 Spinal stenosis, lumbar region with neurogenic claudication (principal); M46.1 Sacroiliitis, not elsewhere classified; M96.1 Postlaminectomy syndrome, not elsewhere classified
CPT/HCPCS: G0463

== ENCOUNTER 2024-05-05 08:21 | Outpatient (OUT) | payer OTHER, SELFPAY ==
--- OUTSIDE RECORDS SUMMARY | 2024-05-05 08:29 | XMS_ITS | CCD ---
Author Organization [facility] Care Team Providers Care Cotton Chopper Name Role Phone Bertram Sanders Unavailable Broderick Howard DO Primary Care Provider Pascual Vidal MD, Kitty Unavailable Un available Broderick Howard DO Primary Care Provider Pascual Vidal MD, Kitty Unavailable Un available Ball, Broderick Unavailable FAWWAD, AGUILAR H Admitting Unavailable BALL, [...] BALL, DR VILLAFANA Attending Unavailable Ball, DO Broderick Primary Care Provider [phone] Lee, DO Villafana Attending Provider [phone] Blades, Niki Unavailable Blades, MD Niki Gomez Attending Provider [phone] Pascual Vidal MD, Kitty Unavailable Un available BELLMIRIAN MCGINNIS Attending Unavailable BALL, BRODERICK E Primary Care Unavailable BALL, BRODERICK E Primary Care Unavailable Ball DO, Broderick E Primary Care Provider ALEJANDRO VILLAR Attending Unavailable BALL, BRODERICK E Primary Care Unavailable RANDA REILLY Attending Unavailable DANEUSEBIA, LAUREN Referring Unavailable BALL, BRODERICK E Primary Care Unavailable Ball, DO Villafana Primary Care Provider Lee, DO Villafana Attending Provider [phone] Blades, Niki A Admitting Unavailable Ball, Broderick Primary Care Unavailable Blades, Niki A Attending Unavailable Blades, Niki A Admitting Unavailable Ball, Broderick Primary Care Unavailable Blades, Niki A Attending Unavailable Ball, Broderick Primary Care Unavailable Ball, Broderick Attending Unavailable Ball, Broderick Admitting Unavailable Ball, Broderick Admitting Unavailable Ball, Broderick Primary Care Unavailable Ball, Broderick Attending Unavailable Ball, Broderick Admitting Unavailable Ball, Broderick Primary Care Unavailable Ball, Broderick Attending Unavailable Blades, Niki A Admitting Unavailable Blades, Niki A Attending Unavailable Ball, Broderick Primary Care Unavailable Ball, Broderick Primary Care Unavailable Ball, Broderick Attending Unavailable Broderick Howard Admitting Unavailable DAVID VILLANUEVA Attending Unavailable DAVID VILLANUEVA Referring Unavailable DAVID VILLANUEVA Referring Unavailable Allergies Allergy Classification Reported Allergen(s) Allergy Type Date of Onset Reaction(s) Facility (20 sources) Dexamethasone; Translations: [DEXAMETHASONE] Drug Allergy 10-03-20 15 [facility] (20 sources) pregabalin; Translations: [PREGABALIN] Drug Allergy 08-24-20 13 [facility] (20 sources) rifAXIMin Drug Allergy 02-09-20 24 rash [facility] (1 source) Dexamethasone Drug Allergy [facility] (1 source) pregabalin Drug Allergy 11-15-19 08 [facility] (11 sources) Dexamethasone Drug Allergy 02-08-20 24 Unknown, Unknown Reaction [facility] (8 sources) Allergies Reconciled Propensity to adverse reactions Unknown Ops[facility] Other (8 sources) patient allergy list reviewed by nurse or physicia Propensity to adverse reactions 04-13-20 Comment:Done Ops[facility] Other (1 source) Dexamethasone Drug Allergy 01-06-20 21 [facility] (1 source) pregabalin Drug Allergy 01-06-20 21 [facility] Medications Current Medications Medication Drug Class(es) Dates Sig (Normalized) Sig (Original) amitriptyline hydrochloride 10 mg oral tablet (20 [...] by aris th at bedtime Amitriptyline HCl 10 MG 1 TABLET Orally AT BEDTIME Feb, Active Comment on above: Take 25 mg by mouth daily at bedtime. amLODIPine 5 mg oral tablet (20 sources) Dihydropyridine Calcium Channel Dylan Start: take 5 mg by mouth once daily Amlodipine Active 5 MG PO Daily February 08, 2024 12:00am Start: 06-23-2022 End: 02-02-2024 take 5 mg by mouth once daily in the morning Amlodipine Discontinued 5 MG PO Every morning July 20, 2023 12:00am February 02, 2024 1:08pm Start: 01-06-2021 End: 07-20-2023 take 10 mg [...] ml enoxaparin sodium 100 mg/ml prefilled syringe (4 sources) Low Molecular Weight Heparin Start: Enoxaparin (Lovenox) 100 mg/mL Syringe Active 90 MG SUBCUT Daily August 03, 2023 12:00am levETIRAcetam 750 mg oral tablet (20 sources) Start: take 750 mg by mouth every twelve [...] above: Take 1 tablet by aris th twice daily. Take 1 tablet by aris two times a day. take 1 tablet by aris twice a day linaclotide 0.072 mg oral capsule (19 sources) Guanylate Cyclase-C Agonist Start: 02-08-2024 take [...] 2024 1:09pm mupirocin 0.02 mg/mg topical ointment (19 sources) RNA Synthetase Inhibitor Antibacterial Start: 02-08-2024 [...] 2021 1:00am take 1 tablet by aris every six hours as needed for nausea Ondansetron 4 MG DISSOLVE 1 TABLET IN MO UT EVERY 6 HOURS NEEDED FOR NAUSEA for 3 Active Ondansetron HCl 4 MG 1 tablet on the tongue and allow to dissolve Orally PRN PRN Active traMADol hydrochloride 50 mg oral tablet (12 sources) Opioid Agonist Start: 03-29-2024 End: 04-13-2024 take 50 mg by mouth twice daily Tramadol Active 50 MG PO Twice daily April 13, 2024 3:16pm Start: 10-14-2020 End: 07-20-2023 take 50 mg by mouth once daily Tramadol Discontinued 5 0 MG PO Daily January 06, 2021 1:00am July 20, 2023 11:48am 24 hr venlafaxine 150 mg extended release oral capsule (20 sources) Serotonin and Norepinephrine Reuptake Inhibitor Start: 02-23-2024 take 1 capsule by mouth once daily Venlafaxine Active 0 .ROUTE .COMPLEX 90 February 23, 2024 1:31pm TAKE 1 CAPSULE BY MOUTH EVERY DAY Start: 02-08-2024 take 75 mg by mouth once daily Venlafaxine Active 75 MG PO Daily February 08, 2024 12:00am Start: 07-20-2023 End: 02-23-2024 take 150 mg by mouth once daily Venlafaxine Discontinu ed 150 MG PO Daily February 08, 2024 12:00am February 23, 2024 1:31pm Start: 01-06-2021 End: 09-08-2023 take 75 mg by mouth once daily Venlafaxine Discontinue d 75 MG PO Daily January 06, 2021 1:00am July 20, 2023 11:47am take 1 tablet by aris every twenty-four hours Venlafaxine HCl 75 MG 1 tablet with food Orally Once a day Not-Taking/PRN Comment on above: Take 1 capsule by mo meh once daily. zonisamide 100 mg oral capsule [...] Sig (Original) acetaminophen 500 mg oral capsule (5 sources) Start: 07-20-2023 End: 02-08-2024 take 2 capsules by mouth every six hours Acetaminophen (Tylenol Extra Strength) 500 mg Capsule Discontinued 1000 MG PO Q6H July 20, 2023 12:00am February 08, 2024 11:20am acetaminophen 325 mg / HYDROcodone bitartrate 5 mg oral tablet (20 sources) Opioid Agonist Start: 02-08-2024 End: 03-29-2024 take 1 tablet by mouth every eight hours Hydrocodone-Acetami nophen Discontinued 1 TAB PO Every 8 hours February 08, 2024 12:00am March 29, 2024 2:00pm Start: 08-05-2023 End: 02-08-2024 take 1 tablet [...] cause sedation for 7 days March, Active alendronic acid 70 mg oral tablet (4 sources) Bisphosphonate Start: 08-15-2021 End: 09-10-2022 take 1 tablet by mouth every week alendronate (FOSAMAX) 70 mg tablet Take 70 mg by mouth one time a week. 0 08/15/2021 09/10/2022 Discontinued (Discontinued by another Health Care Provider) Comment on above: Take 70 mg by mouth one time a week. hydrALAZINE hydrochloride 50 mg oral tablet (7 sources) Arteriolar Vasodilator Start: 01-06-2021 End: 07-20-2023 Hydralazine Discontinued 50 MG PO As Directed January 06, 2021 1:00am July 20, 2023 11:41am melatonin 5 mg oral tablet (7 sources) Start: 01-06-2021 End: 07-20-2023 take 5 mg by mouth at bedtime Melatonin Discontinued 5 MG PO Bedtime January 06, 2021 1:00am July 20, 2023 11:48am naproxen sodium 220 mg oral tablet (10 sources) Nonsteroidal Anti-inflammatory Drug Start: 01-06-2021 End: [...] nee ded. tiZANidine 4 mg oral tablet (4 sources) Central alpha-2 Adrenergic Agonist Start: 08-05-2023 End: 02-08-2024 take 4 mg by mouth twice daily Tizanidine Discontinued 4 MG PO Twice daily 28 14 August 05, 2023 12:00am February 08, 2024 11:24am warfarin sodium 2 mg oral tablet (20 sources) Vitamin K Antagonist Start: 07-20-2023 End: 02-08-2024 take 2 mg by mouth once Warfarin [...] disorder, unspecified] Onset: 06-21-2018 06-21-2018 Chronic Asthma (11 sources) Asthma without status asthmaticus; Translations: [Asthma, unspecified, unspecified status] Onset: 04-30-2014 02-08-2024 Chronic Biliary tract disease (1 source) Disorder of gallbladder; Translations: [Disease of gallbladder, unspecified] 02-08-2024 Episodic Cancer of other GI organs; peritoneum (13 sources) Carcinoma of ampulla of Vater; 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] Onset: 03-10-2011 03-10-2011 Chronic Cancer of other GI organs; peritoneum (20 sources) History of cancer of ampulla of duodenum; Translations: [Personal history of malignant neoplasm of other digestive organs] Onset: 04-30-2014 Episodic Cancer of pancreas (20 sources) Malignant tumor of pancreas; Translations: [Malignant neoplasm of pancreas, unspecified] Onset: 01-29-2011 05-14-2015 Chronic Cardiac dysrhythmias (14 sources) Sinus node dysfunction; Translations: [Sick sinus syndrome] Onset: 07-11-2015 07-11-2015 Chronic Chronic kidney disease (20 sources) Chronic kidney disease stage 3B ; Translations: [Stage 3b chronic kidney disease] Onset: 08-04-2022 02-14-2024 Chronic Conditions associated with dizziness or vertigo (20 sources) Benign paroxysmal positional vertigo; Translations: [Benign paroxysmal vertigo, left ear] Resolved: 01-27-2022 Episodic Conduction disorders (19 sources) Cardiac pacemaker in situ; Translations: [Presence of cardiac pacemaker] Onset: 05-23-2015 11-10-2021 Chronic Epilepsy; convulsions (20 sources) Partial epilepsy with impairment of consciousness; Translations: [Localization-relate d (focal) (partial) symptomatic epilepsy and epileptic syndromes with complex partial seizures, intractable, without status epilepticus] Onset: 04-30-2014 08-19-2015 Chronic Esophageal disorders (20 sources) Esophageal reflux finding; Translations: [Esophageal reflux] [...] source) Fatigue; Translations: [Chronic fatigue, unspecified] Chronic Menopausal disorders (17 sources) Postmenopausal bleeding; Translations: [...] sources) H/O: high risk medication; Translations: [Other senior living (current) drug therapy] Episodic Other aftercare (20 sources) Long-term current use of anticoagulant; Translations: [MCFP (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 of anticoagulants] Onset: 04-30-2014 02-08-2024 Episodic Other aftercare (5 sources) Encounter for therapeutic drug level monitoring; Translations: [ENC THERAPEUTC DRUG LEVL MONITORING] Onset: 03-13-2023 Episodic Other aftercare (1 source) joint terminal attack controller (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 of anticoagulants; Translations: [PARTS SALESMAN CURRNT USE ANTICOAGULANTS] Onset: 04-14-2023 Episodic Other aftercare (8 sources) Long-term current use of drug therapy; Translations: [Other continuous churn buttermaker (current) drug therapy] Episodic Other aftercare (1 source) Drug therapy finding; Translations: [Other continuous churn buttermaker (current) drug therapy] 02-08-2024 Episodic Other and ill-defined heart disease (1 source) Heart disease; Translations: [Heart disease, unspecified] 02-08-2024 Chronic Other and unspecified benign neoplasm (17 sources) History of polyp of colon; Translations: [Personal history of colonic polyps] Episodic Other bone disease and musculoskeletal deformities (8 sources) Disorder of bone; Translations: [Disorder of bone, unspecified] Episodic Other circulatory disease (13 sources) Inferior vena cava filter in situ; Translations: [Presence of other vascular implants and grafts] Onset: 03-09-2013 03-09-2013 Chronic Other connective tissue disease (16 sources) Unspecified rotator cuff tear or rupture of left shoulder, not specified as traumatic; Translations: [Traumatic rupture of tendon of left supraspinatus muscle (disorder)] Episodic Other connective tissue disease (19 sources) Adhesive capsulitis of left shoulder; Translations: [Adhesive capsulitis of left shoulder] 02-08-2024 Episodic Other connective tissue disease (2 sources) Arthrodesis status Episodic Other connective tissue disease (8 sources) Nontraumatic rupture of rotator cuff of left shoulder; Translations: [Unspecified rotator cuff tear or rupture of left shoulder, not specified as traumatic] Episodic Other connective tissue disease (1 source) Pain in leg, unspecified; Translations: [Pain in leg, unspecified] Onset: 03-28-2024 Episodic Other diseases of kidney and ureters (1 source) Kidney disease; Translations: [Disorder of kidney and ureter, unspecified] 02-08-2024 Episodic Other gastrointestinal disorders (16 sources) Irritable bowel syndrome characterized by constipation; [...] fall; Translations: [History of falling] Episodic Other nervous system disorders (2 sources) Postoperative pain ; Translations: [Other acute postprocedural pain] 03-03-2024 Episodic Other nervous system disorders (1 source) Other acute postprocedural pain; Translations: [Other acute postprocedural pain] Onset: 03-28-2024 Episodic Other nutritional; endocrine; and metabolic disorders (20 sources) Obesity; Translations: [Obesity, unspecified] Chronic Other upper respiratory infections (17 sources) Acute maxillary sinusitis; Translations: [Acute maxillary sinusitis, unspecified] Episodic Residual codes; unclassified (13 sources) Insomnia; Translations: [Other insomnia] Onset: 06-21-2018 06-21-2018 Chronic Residual codes; unclassified (20 sources) Obstructive sleep apnea syndrome; Translations: [Obstructive sleep apnea (adult) (pediatric)] 02-08-2024 Chronic Residual codes; unclassified (3 sources) Obstructive sleep apnea (adult) (pediatric); Translations: [Obstructive sleep apnea (adult)(pediatric)] Chronic Residual codes; unclassified (8 sources) Asymptomatic [...] (suspected) exposure to COVID-19] Unclassified (1 source) Low back pain, unspecified; Translations: [Low back pain, unspecified] Onset: 03-28-2024 Unclassified (1 source) Spinal stenosis, lumbar region [...] Da te Episodic/Chronic Blindness and vision defects (13 sources) Homonymous hemianopia; Translations: [Homonymous bilateral field defects, unspecified side] Onset: 10-08-2015 10-08-2015 Episodic Cardiac dysrhythmias (14 sources) Bradycardia; Translations: [Bradycardia, unspecified] Onset: 05-14-2015 05-14-2015 Episodic Chronic kidney disease (4 sources) Chronic kidney disease; Translations: [CHRONIC KIDNEY DISEASE STAGE 3A] Onset: 08-12-2022 Complication of device; implant or graft (13 sources) Complication of intravascular line; Translations: [Unspecified complication of cardiac and vascular prosthetic device, implant and graft, initial encounter] Onset: 03-29-2014 03-29-2014 Episodic Complications of surgical procedures or medical care (6 sources) Postoperative wound infection; Translations: [Infection following a procedure, other surgical site, initial encounter] Onset: 08-12-2023 Episodic Deficiency and other anemia (9 sources) Anemia; Translations: [Anemia, unspecified] Onset: 04-13-2019 02-08-2024 Episodic Epilepsy; convulsions (10 sources) Seizure; Translations: [Other convulsions] Onset: 01-24-2015 Resolved: 06-21-2018 06-21-2018 Episodic Malaise and fatigue (20 sources) Fatigue; Translations: [Other fatigue] Onset: 03-13-2019 03-13-2019 Episodic Nausea and vomiting (20 sources) Nausea; Translations: [Nausea] Onset: 09-19-2018 Resolved: 01-06-2022 Episodic Neoplasms of unspecified nature or uncertain behavior (8 sources) 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; Translations: [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] Resolved: 07-30-2021 Episodic Other aftercare (13 sources) Anticoagulant effect; Translations: [joint terminal attack controller (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 of anticoagulants] Onset: 05-14-2015 05-14-2015 Episodic Other aftercare (1 source) Other continuous churn buttermaker (current) drug therapy; Translations: [OTH SKILLED NURSING CURRENT DRUG THERAPY] Onset: 08-04-2022 Episodic Other [...] Resolved: 03-03-2022 Episodic Other connective tissue disease (13 sources) Pain in limb; Translations: [Pain in unspecified limb] Onset: 03-13-2019 03-13-2019 Episodic Other connective tissue disease (13 sources) Pain in left arm; Translations: [Pain [...] unspecified] Resolved: 07-24-2020 Episodic Other eye disorders (13 sources) Hypertropia of right eye; 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, right eye] Onset: 10-08-2015 10-08-2015 Episodic Other liver diseases (13 sources) Alkaline phosphatase raised; Translations: [Abnormal levels of other serum enzymes] Onset: 05-14-2015 05-14-2015 Episodic Other nervous system disorders (8 sources) Impaired cognition; Translations: [Other symptoms and signs involving cognitive functions and awareness] Resolved: 01-25-2022 Episodic Other nervous system disorders (11 sources) Paresthesia; Translations: [Paresthesia of skin] Onset: 01-05-2019 02-08-2024 Episodic Other non-traumatic joint disorders (8 sources) Shoulder joint pain; Translations: [Pain in left shoulder] Resolved: 07-24-2020 Episodic Other nutritional; endocrine; and metabolic disorders (13 sources) Abnormal weight loss; Translations: [Abnormal weight [...] Onset: 03-09-2013 05-14-2015 Episodic Residual codes; unclassified (13 sources) Family history of malignant neoplasm of [...] Test Name Value Interpretation Reference Range Facility MR lumbar spine wo/w conon 0 03-28-2024 MR lumbar spine wo/w con [facility] [place] [address] [place] [address] MRI Report Signed Patient: Cassi Rodrigez MR#: [id number] 8 : 1950 Acct:[id number] Age/Sex: 74 / F ADM Date: 03/28/24 Loc: MR Room: Type: [facility] Attending Dr: Broderick Howard DO Copies to: Broderick Howard DO Ordering Provider: Broderick Howard DO Date of Service: 03/28/24 MR/MR lumbar spine wo/w con: M54.50 - Low back pain, unspecified MR lumbar spine wo/w con 03/28/2024 7:23 AM SIGNS AND SYMPTOMS: History of lumbar surgery. Low back pain radiating down right lower extremity PROTOCOL: Multiplanar multisequence MR images of the lumbar spine were obtained with and without IV contrast CONTRAST: 17 mL of intravenous ProHance COMPARISON: 06/04/2023 FINDINGS: The bones of the lumbar spine are in anatomic alignment. There is preservation of vertebral body heights. There is moderate severe disc height loss at L1-L2 with severe disc height loss at L2-L3. There is mild disc height loss at L3-L4 and L4-5. There is evidence of previous posterior decompression and intervertebral fusion at L5-S1, similar to the prior study. Modic type I endplate edema is noted at L2, L2-L3, and L4-5. The conus terminates at the inferior endplate of the L1 vertebral body level. No epidural or paraspinous fluid collection is appreciated. There is a small peripherally enhancing fluid collection in the laminectomy site at L4-5 measuring 15 x 11 x 8 mm in greatest dimension. This may represent residual seroma. At T12-L1: There is a normal disc, central canal, and neural foramen. At L1-L2: There is a broad-based disc bulge with endplate osteophyte formation. There is mild bilateral neural foraminal narrowing with mild spinal canal narrowing. This is unchanged. At L2-L3: There is a broad-based disc bulge with facet hypertrophy, ligament flavum thickening, and endplate osteophyte formation. There is moderate spinal canal stenosis with moderate severe left and moderate right neural foraminal stenosis, similar to the prior exam. This mild mass effect on the exiting left L2 nerve roots. This is unchanged. At L3-L4: Facet hypertrophy is present with ligamentum flavum thickening. There is a broad-based disc bulge. There is mild to moderate spinal canal narrowing with moderate bilateral neural foraminal stenosis, right greater than left. This is similar to the prior exam. At L4-L5: There is posterior decompression with a circumferential disc bulge and facet hypertrophy. There is mild spinal canal stenosis with severe right and moderate left neural foraminal narrowing. Is mass effect on the exiting right L4 nerve roots, similar to the prior study. At L5-S1: There is posterior decompression and intervertebral fusion. There is facet hypertrophy. There is mild bilateral neural foraminal narrowing without spinal canal narrowing. This is unchanged. MR/MR lumbar spine wo/w con IMPRESSION: At L2-L3: There is a broad-based disc bulge with facet hypertrophy, ligament flavum thickening, and endplate osteophyte formation. There is moderate spinal canal stenosis with moderate severe left and moderate right neural foraminal stenosis, similar to the prior exam. This mild mass effect on the exiting left L2 nerve roots. This is unchanged. At L4-L5: There is posterior decompression with a circumferential disc bulge and facet hypertrophy. There is mild spinal canal stenosis with severe right and moderate left neural foraminal narrowing. Is mass effect on the exiting right L4 nerve roots, similar to the prior study. Additional degenerative changes are noted similar to the prior exam. There is a small peripherally enhancing fluid collection in the laminectomy site at L4-5 measuring 15 x 11 x 8 mm in greatest dimension. This may represent residual seroma. Abscess is not excluded however. Impression dictated by: Arnel Simon M.D.03/28/2024 12:17 PM Dictation Location: [place] [address] Transcribed By: [facility] 03/28/24 1217 Dictated By: Arnel Simon II, MD 03/28/24 1209 Signed By: 03/28/24 1217 Normal [facility] No Panel Informationon 03-15 BLANK _ [facility] Implant Date 05/22/2015 [facility] Model 5076 CapSureFix Novus [facility] PACEMAKER REMOTE CHECKon AV Delay Adaptive Paced Minimum (ms) 180 ms [facility] AV Delay Adaptive Sensed Minimum (ms) 150 ms [facility] AV Delay Adaptive Status DISABLED [facility] Battery Voltage (volts) 2.92 V C [facility] Godfrey RA Pacing Amplitude (volts) 1.5 V [facility] Godfrey RA Pacing Polarity BI [facility] Godfrey RA Pacing Pulse Width (ms) 0.4 ms [facility] Godfrey RA Sensing Amplitude (mvolts) 0.3 mV [facility] Godfrey RA Sensing Blanking Period (ms) 150 ms [facility] Godfrey RA Sensing Polarity BI [facility] Godfrey RA Sensing Refractory Period (ms) Auto [facility] Godfrey RV Pacing Amplitude (volts) 2 V [facility] Godfrey RV Pacing Polarity BI [facility] Godfrey RV Pacing Pulse Width (ms) 0.4 ms [facility] Godfrey RV Sensing Amplitude (mvolts) 0.9 mV [facility] Godfrey RV Sensing Blanking Period (ms) 200 ms [facility] Godfrey RV Sensing Polarity BI [facility] Hysteresis Rate (bpm) DISABLED [facility] Lead1 Mfg ARIANNA [facility] Lead2 Mfg ARIANNA [facility] Location RV [facility] Location RA [facility] Lower Rate (bpm) 60 {beats}/min [facility] Max Sensor Rate (bmp) 130 {beats}/min [facility] Model [id number] COBOS [facility] PM-Device Jorge KELLER [facility] PM-Percent Pacing (A) 99.48 % [facility] PM-Percent Pacing (V) 0.27 % [facility] PM-PMT Intervention ENABLED [facility] PM-PVC Intervention ENABLED [facility] PM-Rate Modulation Acceleration Reaction 30 s [facility] PM-Rate Modulation ADL Rate (bpm) 100 {beats}/min [facility] PM-Rate Modulation Deceleration Exercise [facility] PM-Rate Modulation Threshold MediumLow [facility] RA Bipolar Impedance ohms 418 ohm [facility] RA Unipolar Impedance ohms 399 ohm [facility] RV Bipolar Impedance ohms 532 ohm [facility] RV Unipolar Impedance 494 ohm [facility] Serial Number [id number] [facility] Serial Number [id number] [facility] Serial Number [id number] [facility] Thresh RA Capture Amplitude (volts) 0.5 V [facility] Thresh RA Capture Duration (ms) 0.4 ms [facility] Thresh RA Sensing Amplitude (mvolts) 3.125 mV [facility] Thresh RV Capture Amplitude (volts) 0.875 V [facility] Thresh RV Capture Duration (ms) 0.4 ms [facility] Thresh RV Sensing Amplitude (mvolts) 11.875 mV [facility] Tracking Rate (bpm) 130 {beats}/min [facility] 03/15/2024 Formattin g of this note might be different from the original. DUAL CHAMBER PACEMAKER REMOTE EVALUATION: PRESENTING EGM: AP/VS BATTERY STATUS: Estimated time remaining to CASSI is 2 years COUNTERS SINCE: 12/08/23 ATRIAL ARRHYTHMIAS: none VENTRICULAR ARRHYTHMIAS: There were no ventricular detections. LEAD MEASUREMENTS: Sensing is appropriate. Review of the lead impedance trends are normal. OTHER DIAGNOSTICS: RA pacing 99.6%. Total V pacing 0.3% FOLLOW UP: Continue remote transmissions every 3 months and yearly in-clinic interrogations. Art Case RN NOTE TO PROVIDERS: CARD Flowsheets contain detailed device programming and testing data. Paceart/Interrogation PDF can be found under CARDIAC DATA AND REPORT, Scanned Documents section. [facility] CNOVon 03-07-2024 CNOV Office Visit (NEADFV ) -- CASSI RODRIGEZ ([id number]) 1950 F Date Time Provider Department 03/07/24 9:00 AM RANDA REILLY NETAHMINAFV During your visit today, we recorded the following information about you: Pulse Blood pressure Weight Height 85/minute 133/72 84.5 kg 1.575 m Randa Reilly MD 03/07/2024 1:16 PM Signed PROGRESS NOTE- [facility] SERVICE DATE: March 07, 2024 Location: [facility] Participants: patient, and provider HPI: Here for follow up. Last seen in 2019. Then she had 3 Botox treatments with some relief. Still daily headaches but less severe episodes. Currently daily constant head pain with exacerbations 15 days a month. Her neck pain is also daily. S/p multiple C spine surgeries. Migraine Characteristics: Onset: Started when she was 30 Location: Holocephalic Quality:Throbbing, Aching, Sharp, Pressure, Exploding Associated symptoms: photophobia, phonophobia, nausea, blurred vision, neck pain, worse with movement. She says she would prefer to sit when having DOUGLASS. No changes with Valsalva maneuvers. Aura:no. Severity: 5/10 at baseline. With exacerbations of 10/10 about 15 days a month Frequency: daily for 3-4 decades Duration of attacks: constant Prior Treatments for migraine: Cymbalta Propranolol ( for high BP, stopped due to low HR) Amitriptyline Topamax Fiorecet Tizanidine Amlodipine Keppra Zonisamide Zoloft Depakote Verapamil Benazepril Botox injections. Helped a little bit. But insurance stopped paying for it. She is now on Medicare Imagin10/15/2016 CT head: no acute changes 2015 MRI brain wwo contrast Chart review: Note, epilepsy clinic 01/2024 Current Outpatient Medications Medication Sig zonisamide (ZONEGRAN) 100 mg capsule Take 3 capsules by mouth daily at bedtime. levETIRAcetam (KEPPRA) 750 mg tablet Take 1 tablet by mouth two times a day. amLODIPine (NORVASC) 5 mg tablet Take 5 mg by mouth once daily. amitriptyline (ELAVIL) 25 [...] No current facility-administered medications for this visit. PAST MEDICAL HISTORY Diagnosis Date Asthma, chronic Depression DJD (degenerative joint disease) HTN (hypertension) IBS (irritable bowel syndrome) SHELL (obstructive sleep apnea) Reflux Right leg DVT (HCC) 03/09/2013 Seizure (HCC) Seizures (HCC) ALLERGIES Allergen Reactions Lyrica [Pregabalin] Rash Dexamethasone Rash BP 133/72 Pulse 85 Ht 157.5 cm (5' 2 ) Wt 84.5 kg (186 lb 3.2 oz) BMI 34.06 kg/m? ASSESSMENT: - 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 aura - chronic cervicalgia - CKD RECOMMENDATIONS: 1. Preventive therapy: - re-try Botox. No hx of neuromuscular disorders. 2.Referral to spine medicine 3.Referral to sleep medicine Of the 40 minute long appointment visit, I spent at least 50% of the [id number] time in counseling, explanation of diagnosis, planning of further management, and answering all questions. Randa Reilly MD [facility] [place] Referring Provider: LAUREN OTERO [[id number]] Allergies As of Date: 03/07/2024 Noted Allergy Reaction LYRICA (PREGABALIN) 08/24/2013 2 - Rash DEXAMETHASONE 10/03/2015 2 - Rash Date Reviewed: 03/07/2024 Reviewed by: Lou Bustamante MA - Fully Assessed Reason for Visit: New Patient [172] Cmt: Intractable 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 aura and without status migrainosus Primary Visit Diagnosis:Intractable 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 aura and without status migrainosus [G43.719] Other Visit Diagnoses:Cervicalgia [M54.2] SHELL (obstructive sleep apnea) [G47.33] Order(s):CONSULT TO [facility] [0411642] Order #: [id number]: 1 CONSULT TO SLEEP MEDICINE - ADULT [[id number]] Order #: [id number]: 1 FUTURE CONSULT TO SPINE MEDICAL SORRENTO [[id number]] Order #: [id number]: 1 FUTURE Prescriptions as of 03/07/2024 - zonisamide (ZONEGRAN) 100 mg capsule Take 3 capsules by mouth daily at bedtime. - levETIRAcetam (KEPPRA) 750 mg tablet Take 1 tablet by mouth two times a day. - amLODIPine (NORVASC) 5 mg tablet Take [...] once daily. Problem List As Of Date 03/07/2024 Noted Resolve (more content not included)... Normal [facility] Albumin [Mass/volume] in Ser um or Plasmaon 03-03-2024 Albumin [Mass/Vol] 3.5 g/dL 2.9-4.4 [facility] Basophils Auto (Bld) [#/Vol] on 03-03-2024 Basophils (Bld) [#/Vol] 0.0 10 3/uL 0.0-0.1 [facility] Basophils/100 WBC Auto (Bld) on 03-03-2024 Basophils/100 WBC (Bld) 0.7 % 0.2-2.0 F [facility] Eosinophils/100 WBC Auto (Bl d)on 03-03-2024 Eosinophils/100 WBC (Bld) 10.8 % 0.9-7.0 [facility] Erythrocyte distribution wid th Auto (RBC) [Ratio]on 03-03-2024 Erythrocyte distribution width (RBC) [Ratio] 13.5 % 11.0-15.0 [facility] Estimated glomerular filtrat ion rate (GFR) non- Americanon 03-03-2024 GFR/1.73 sq M.predicted among non-blacks MDRD (S/P/Bld) [Vol rate/Area] 34 mL/min/{1.73_m2} >=60 [facility] Globulin Calc (S) [Mass/Vol] on 03-03-2024 Globulin (S) [Mass/Vol] 3.6 g/dL F [facility] Hematocrit Auto (Bld) [Volum e fraction]on 03-03-2024 Hematocrit (Bld) [Volume fraction] 38.8 % 36.0-48.0 [facility] Hemoglobin [Mass/volume] in Bloodon 03-03-2024 Hemoglobin (Bld) [Mass/Vol] 11.9 g/dL 12.0-16.0 [facility] IgA [Mass/volume] in Serum o r Plasmaon 03-03-2024 IgA [Mass/Vol] 265 mg/dL 64-422 [facility] IgG [Mass/volume] in Serum o r Plasmaon 03-03-2024 IgG [Mass/Vol] 911 mg/dL [phone] [facility] IgM [Mass/volume] in Serum o r Plasmaon 03-03-2024 IgM [Mass/Vol] 64 mg/dL 26-217 [facility] Immunoglobulin light chains. kappa.free [Mass/volume] in Serumon 03-03-2024 Immunoglobulin light chains.kappa.free (S) [Mass/Vol] 44.7 mg/L 3.3-19.4 [facility] Immunoglobulin light chains. kappa.free/Immunoglobulin light chains.lambda.free [Yanelis 03-03-2024 Immunoglobulin light chains.kappa.free/Immun oglobulin light chains.lambda.free (S) [Mass ratio] 1.16 0.26-1.65 [facility] Comment on above: Performed at: [address] [id number] Director: Junaid Sawyer PhD, Phone: [phone] Immunoglobulin light chains. lambda.free [Mass/volume] in Serum or Plasmaon 03-03-2024 Immunoglobulin light chains.lambda.free [Mass/Vol] 38.7 mg/L 5.7-26.3 [facility] Iron binding capacity [Mass/ volume] in Serum or Plasmaon 03-03-2024 Iron binding capacity [Mass/Vol] 338.0 ug/dL 250.0-450. 0 [facility] Iron saturation [Mass Fracti on] in Serum or Plasmaon 03-03-2024 Iron saturation [Mass fraction] 7.7 % [facility] Laboratory - Chemistry and C hemistry - challengeon 03-03-2024 Albumin [Mass/Vol] 3.3 g/dL 3.4-5.0 [facility] ALP [Catalytic activity/Vol] 155 U/L 46-116 [facility] ALT [Catalytic activity/Vol] 21 U/L 14-59 [facility] AST [Catalytic activity/Vol] 25 U/L 15-37 [facility] Bilirubin [Mass/Vol] 0.4 mg/dL 0.2-1.0 [facility] Calcium [Mass/Vol] 9.0 mg/dL 8.5-10.1 [facility] Chloride [Moles/Vol] 106 mmol/L 98-107 [facility] CO2 [Moles/Vol] 21.4 mmol/L 21.0-32.0 [facility] Cobalamin (Vitamin B12) [Mass/Vol] 495.0 pg/mL 193.0-986. 0 [facility] Creatinine [Mass/Vol] 1.50 mg/dL 0.55-1.02 [facility] Ferritin [Mass/Vol] 19.0 ng/mL 8.0-252.0 [facility] GFR/1.73 sq M.predicted MDRD (S/P/Bld) [Vol rate/Area] 41 mL/min/{1.73_m2} >=60 [facility] Glucose [Mass/Vol] 113 mg/dL 74-106 [facility] Iron [Mass/Vol] 26.0 ug/dL 50.0-170.0 [facility] Potassium [Moles/Vol] 4.3 mmol/L 3.5-5.1 [facility] Protein [Mass/Vol] 6.9 g/dL 6.4-8.2 [facility] Sodium [Moles/Vol] 139 mmol/L 136-145 [facility] Urea nitrogen [Mass/Vol] 25.0 mg/dL 7.0-18.0 [facility] Urea nitrogen/Creatinine [Mass ratio] 16.7 mg/mg [facility] Laboratory - Hematology and Cell countson 03-03-2024 Immature granulocytes/100 WBC (Bld) 0.0 % 0.0-0.5 [facility] Leukocytes [#/volume] correc tanesha for nucleated erythrocytes in Blood by Automated counon 03-03-2024 WBC corrected for nucl RBC Auto (Bld) [#/Vol] 2.8 10 3/uL 4.0-11.0 [facility] Lymphocytes Auto (Bld) [#/Vo l]on 03-03-2024 Lymphocytes (Bld) [#/Vol] 0.8 10 3/uL 1.2-3.8 [facility] Lymphocytes/100 WBC Auto (Bl d)on 03-03-2024 Lymphocytes/100 WBC (Bld) 27.6 % 20.5-60.0 [facility] MCH Auto (RBC) [Entitic mass ]on 03-03-2024 MCH (RBC) [Entitic mass] 28.8 pg 26.7-34.0 [facility] MCHC Auto (RBC) [Mass/Vol]on 03-03-2024 MCHC (RBC) [Mass/Vol] 30.7 g/dL 29.9-35.2 [facility] MCV Auto (RBC) [Entitic vol] on 03-03-2024 MCV (RBC) [Entitic vol] 93.9 fL 81.0-99.0 F [facility] Monocytes Auto (Bld) [#/Vol] on 03-03-2024 Monocytes (Bld) [#/Vol] 0.3 10 3/uL 0.3-0.8 [facility] Monocytes/100 WBC Auto (Bld) on 03-03-2024 Monocytes/100 WBC (Bld) 9.7 % 1.7-12.0 F [facility] Neutrophils Auto (Bld) [#/Vo l]on 03-03-2024 Neutrophils (Bld) [#/Vol] 1.4 10 3/uL 1.4-6.5 [facility] Neutrophils/100 WBC Auto (Bl d)on 03-03-2024 Neutrophils/100 WBC (Bld) 51.2 % 43.0-75.0 [facility] No Panel Informationon 03-03 Eosinophils # (Auto) 0.3 10 3/uL 0.0-0.7 [facility] Folate 9.50 ng/mL 8.60-58.90 [facility] Immature Granulocyte # (Auto) 0.00 10 3/uL 0.00-0.03 [facility] Protein Electrophoresis M-Miguel Not Observed g/dL Not Observed [facility] Protein Electrophoresis Note Comment . [facility] Comment on above: Protein electrophore sis scan will follow via computer,mail, or advertising campaign manager delivery. Platelet mean volume Auto (B ld) [Entitic vol]on 03-03-2024 Platelet mean volume (Bld) [Entitic vol] 9.4 fL 9.5-13.5 [facility] Platelets Auto (Bld) [#/Vol] on 03-03-2024 Platelets (Bld) [#/Vol] 203 10 3/uL 150-450 [facility] Protein [Mass/volume] in Ser um or Plasmaon 03-03-2024 Protein [Mass/Vol] 6.2 g/dL 6.0-8.5 [facility] RBC Auto (Bld) [#/Vol]on RBC (Bld) [#/Vol] 4.13 10 6/uL 4.20-5.40 [facility] Serum globulin measurement ( mass/volume)on 03-03-2024 Globulin (S) [Mass/Vol] 2.7 g/dL 2.2-3.9 F [facility] Serum or plasma albumin/glob ulin mass ratioon 03-03-2024 Albumin/Globulin [Mass ratio] 0.9 {ratio} [facility] Albumin/Globulin [Mass ratio] 1.3 {ratio} 0.7-1.7 [facility] Serum or plasma alpha 1 glob ulin measurement by electrophoresis (mass/volume)on 03-03-2024 Alpha 1 globulin Elph [Mass/Vol] 0.3 g/dL 0.0-0.4 [facility] Serum or plasma alpha 2 glob ulin measurement by electrophoresis (mass/volume)on 03-03-2024 Alpha 2 globulin Elph [Mass/Vol] 0.7 g/dL 0.4-1.0 [facility] Serum or plasma anion gap de terminationon 03-03-2024 Anion gap [Moles/Vol] 15.9 mmol/L [facility] Serum or plasma beta globuli n measurement by electrophoresis (mass/volume)on 03-03-2024 Beta globulin Elph [Mass/Vol] 1.0 g/dL 0.7-1.3 [facility] Serum or plasma gamma globul in measurement by electrophoresis (mass/volume)on 03-03-2024 Gamma globulin Elph [Mass/Vol] 0.8 g/dL 0.4-1.8 [facility] Serum or plasma immunoelectr ophoresis interpretationon 03-03-2024 Interpretation IEP [Interp] Comment . [facility] Comment on above: No monoclonality det ected. Estimated glomerular filtrat ion rate (GFR) non- Americanon 02-10-2024 GFR/1.73 sq M.predicted among non-blacks MDRD (S/P/Bld) [Vol rate/Area] 27 mL/min/{1.73_m2} >=60 [facility] Globulin Calc (S) [Mass/Vol] on 02-10-2024 Globulin (S) [Mass/Vol] 3.7 g/dL F [facility] Laboratory - Chemistry and C hemistry - challengeon 02-10-2024 Albumin [Mass/Vol] 3.3 g/dL 3.4-5.0 [facility] ALP [Catalytic activity/Vol] 174 U/L 46-116 [facility] ALT [Catalytic activity/Vol] 24 U/L 14-59 [facility] Amylase [Catalytic activity/Vol] 16 U/L 25-115 [facility] AST [Catalytic activity/Vol] 19 U/L 15-37 [facility] Bilirubin [Mass/Vol] 0.4 mg/dL 0.2-1.0 [facility] Calcium [Mass/Vol] 8.6 mg/dL 8.5-10.1 [facility] Chloride [Moles/Vol] 107 mmol/L 98-107 [facility] CO2 [Moles/Vol] 26.8 mmol/L 21.0-32.0 [facility] Creatinine [Mass/Vol] 1.81 mg/dL 0.55-1.02 [facility] GFR/1.73 sq M.predicted MDRD (S/P/Bld) [Vol rate/Area] 33 mL/min/{1.73_m2} >=60 [facility] Glucose [Mass/Vol] 85 mg/dL 74-106 [facility] Lipase [Catalytic activity/Vol] 13.0 U/L 16.0-77.0 [facility] Potassium [Moles/Vol] 4.6 mmol/L 3.5-5.1 [facility] Protein [Mass/Vol] 7.0 g/dL 6.4-8.2 [facility] Sodium [Moles/Vol] 143 mmol/L 136-145 [facility] Urea nitrogen [Mass/Vol] 25.0 mg/dL 7.0-18.0 [facility] Urea nitrogen/Creatinine [Mass ratio] 13.8 mg/mg [facility] Serum or plasma albumin/glob ulin mass ratioon 02-10-2024 Albumin/Globulin [Mass ratio] 0.9 {ratio} [facility] Serum or plasma anion gap de terminationon 02-10-2024 Anion gap [Moles/Vol] 13.8 mmol/L [facility] Serum or plasma cancer antig en 19-9 measurement (units/volume)on 02-10-2024 Cancer Ag 19-9 Qn 13 [arb'U]/mL 0-35 [facility] Comment on above: [employer] El ectrochemiluminescence Immunoassay(ECLIA)Values obtained with different assay methods or kits cannotbe used interchangeably. Results cannot be interpreted asabsolute evidence of the presence or absence of malignantdisease.Performed at: [facility] [id number] Director: Junaid Sawyer PhD, Phone: [phone] CNOVon 12-23-2023 OV Office Visit (NEEPFV ) -- CASSI RODRIGEZ ([id number]) 1950 F Date Time Provider Department 12/23/23 9:00 AM ALEJANDRO VILLAR NEEPFV During your visit today, we recorded the following information about you: Temperature Pulse Blood pressure Weight 97.6 degrees 85/minute 133/72 86.6 kg Height 1.575 m Alejandro Villar MD, PhD 12/23/2023 1:37 PM Signed [facility] CHIEF COMPLAINT: Patient presents with: [...] was referred to the [facility] clinic [facility] in the past but at this time [...] There is no focal weakness. PREVIOUS EVALUATIONS: [facility], 05/2015: Right Temporal Epilepsy Seizures: Aura -> Dialept (more content not included)... Normal [facility] 09-13-2023 NICN Telephone (CARDAV) -- CASSI RODRIGEZ ([id number]) 1950 F Date Time Provider Department 09/13/23 MIRIAN BELL During your visit today, we recorded the following information about you: Brenda Hodges RN 09/13/2023 8:00 AM Signed Received medical records from [facility] and scanned into chart for review. Mirian Bell APRN.CNP 09/13/2023 1:54 PM Signed Thank you reviewed scan documents. Mirian Bell APRN.CNP Allergies As of Date: 09/13/2023 Noted [...] pain [M79.602] 10/24/2019 Encounter Status:Closed by MIRIAN EBLL on 09/13/23 [facility] CNOVon 09-08-2023 CNOV Office Visit (CARDAV ) -- CASSI RODRIGEZ ([id number]) 1950 F Date Time Provider Department 09/08/23 2:30 PM MIRIAN BELL During your visit today, we recorded the following information about you: Pulse Blood pressure Weight Height 62/minute 130/64 86.5 kg 1.575 m Mirian Bell APRN.OTR DRIVER 09/08/2023 3:29 PM [facility] [place] Guy Renteria Department of Cardiovascular Medicine SECTION OF CARDIAC PACING and ELECTROPHYSIOLOGY OUTPATIENT VISIT DATE September 08, 2023 OUTPATIENT VISIT TYPE ESTABLISHED PRIMARY CARE PHYSICIAN: Broderick oHward (Zack) [facility] [place] [address] CHIEF COMPLAINT: follow up device management HISTORY OF PRESENT ILLNESS: Ms. Rodrigez is a 73 year old female who presents today for followed by Dr. Garner for h/o symptomatic sinus bradycardia (presyncope, decrease exercise tolerance, sinus node dysfunction, s/p dual chamber pacemaker (medtronic, 2015), preserved LV systolic heart function, Other PMH of epilepsy (managed with antiepileptic), h/o pancreatic cancer (s/p whipple, chemo), hypertension, asthma, depression, GERD h/o right leg DVT (2012), seizure, SHELL, IBS, continuous churn buttermaker anticoagulation. Moderate functional capacity (active with ADL, [...] 68 8 (more content not included)... Normal [facility] [id number] 09-08-2023 ECG01 Ventricular Rate : 6 2 BPM Atrial Rate : 62 BPM P-R Interval : 194 ms QRS Duration : 76 ms Q-T Interval : 424 ms QTC Calculation(Bazett) : 430 ms Calculated P [place] : 57 degrees Calculated R [place] : 70 degrees Calculated T [place] : 76 degrees ATRIAL-PACED RHYTHM Confirmed by KALIN AGUILA MD ([id number]) on 09/12/2023 10:29:58 PM NAME : CASSI RODRIGEZ PID : [id number] : 1950 Gender : Female Race : ORD : Procedure Date : Sep 08 2023 15:00:29 Edit Date : Sep 12 2023 22:29:59 Diagnosis: ATRIAL-PACED RHYTHM Confirmed by KALIN AGUILA MD ([id number]) on 09/12/2023 10:29:58 PM Test Reason : Location : 192 : AVCRD Overread By : KALIN AGUILA MD Edited By : KALIN AGUILA MD Referred By : , Acquired by : , Normal [facility] ECG01 Ventricular Rate : 6 4 BPM Atrial Rate : 64 BPM P-R Interval : 200 ms QRS Duration : 80 ms Q-T Interval : 406 ms QTC Calculation(Bazett) : 418 ms Calculated P [place] : 94 degrees Calculated R [place] : 94 degrees Calculated T [place] : 83 degrees SUSPECT ARM LEAD REVERSAL, PLEASE REPEAT ATRIAL-PACED RHYTHM RIGHT AXIS LOW VOLTAGE QRS, CONSIDER PULMONARY DISEASE, PERICARDIAL EFFUSION, OR NORMAL VARIANT ABNORMAL ECG Confirmed by KALIN AGUILA MD ([id number]) on 09/12/2023 10:29:06 PM NAME : CASSI RODRIGEZ PID : [id number] : 1950 Gender : Female Race : ORD : Procedure Date : Sep 08 2023 14:58:41 Edit Date : Sep 12 2023 22:29:09 Diagnosis: SUSPECT ARM LEAD REVERSAL, PLEASE REPEAT ATRIAL-PACED RHYTHM RIGHT AXIS LOW VOLTAGE QRS, CONSIDER PULMONARY DISEASE, PERICARDIAL EFFUSION, OR NORMAL VARIANT ABNORMAL ECG Confirmed by KALIN AGUILA MD ([id number]) on 09/12/2023 10:29:06 PM Test Reason : Location : 192 : AVCRD Overread By : KALIN AGUILA MD Edited By : KALIN AGUILA MD Referred By : , Acquired by : , Normal [facility] Panel Informationon 09-08 BLANK _ [facility] Implant Date 05/22/2015 [facility] Model 5076 [employer]SureFix Novus [facility] CHECKon AV Delay Adaptive Paced Minimum (ms) 180 ms [facility] AV Delay Adaptive Sensed Minimum (ms) 150 ms [facility] AV Delay Adaptive Status DISABLED [facility] Battery Voltage (volts) 2.94 V [facility] Godfrey RA Pacing Amplitude (volts) 1.5 V [facility] Godfrey RA Pacing Polarity BI [facility] Godfrey RA Pacing Pulse Width (ms) 0.4 ms [facility] Godfrey RA Sensing Amplitude (mvolts) 0.3 mV [facility] Godfrey RA Sensing Blanking Period (ms) 150 ms [facility] Godfrey RA Sensing Polarity BI [facility] Godfrey RA Sensing Refractory Period (ms) Auto [facility] Godfrey RV Pacing Amplitude (volts) 2 V [facility] Godfrey RV Pacing Polarity BI [facility] Godfrey RV Pacing Pulse Width (ms) 0.4 ms [facility] Godfrey RV Sensing Amplitude (mvolts) 0.9 mV [facility] Godfrey RV Sensing Blanking Period (ms) 200 ms [facility] Godfrey RV Sensing Polarity BI [facility] Hysteresis Rate (bpm) DISABLED [facility] Lead1 Mfg T [facility] Lead2 Mfg T [facility] Location RV [facility] Location RA [facility] Lower Rate (bpm) 60 {beats}/min [facility] Max Sensor Rate (bmp) 130 {beats}/min [facility] Model [id number] COBOS [facility] PM-Device Mfg MDT [facility] PM-Percent Pacing (A) 99.4 % [facility] PM-Percent Pacing (V) 0.24 % [facility] PM-PMT Intervention ENABLED [facility] PM-PVC Intervention ENABLED [facility] PM-Rate Modulation Acceleration Reaction 30 s [facility] PM-Rate Modulation ADL Rate (bpm) 100 {beats}/min [facility] PM-Rate Modulation Deceleration Exercise [facility] PM-Rate Modulation Threshold MediumLow [facility] RA Bipolar Impedance ohms 456 ohm [facility] RA Unipolar Impedance ohms 418 ohm [facility] RV Bipolar Impedance ohms 551 ohm [facility] RV Unipolar Impedance 532 ohm [facility] Serial Number [id number] [facility] Serial Number [id number] [facility] Serial Number [id number] [facility] Thresh RA Capture Amplitude (volts) 0.5 V [facility] Thresh RA Capture Duration (ms) 0.4 ms [facility] Thresh RA Sensing Amplitude (mvolts) 1.5 mV [facility] Thresh RV Capture Amplitude (volts) 0.75 V [facility] Thresh RV Capture Duration (ms) 0.4 ms [facility] Thresh RV Sensing Amplitude (mvolts) 13.125 mV [facility] Tracking Rate (bpm) 130 {beats}/min [facility] Complete Blood Count Auto Di ffon 08-12-2023 Basophils (Bld) [#/Vol] 0.0 10*3/uL Normal 0.0-0.2 [facility] Comment on above: Order Comment: Reaso n for Exam Lumbar spondylosis;Postoperative wound infection Result Comment: PERF ORMED BY: [facility] [address] [place] [address] PATHOLOGIST MAST MAKER LELE FALK M.D. Performed By: #### P TT, PT, CBC ####[facility] [id number] [place] [id number] [facility] Basophils/100 WBC (Bld) 0.5 % Normal . T [facility] Comment on above: Order Comment: Reaso n for Exam Lumbar spondylosis;Postoperative wound infection Performed By: #### P TT, PT, CBC ####[address] Eosinophils (Bld) [#/Vol] 0.2 10*3/uL Normal 0.0-0.45 [facility] Comment on above: Order Comment: Reaso n for Exam Lumbar spondylosis;Postoperative wound infection Performed By: #### P TT, PT, CBC ####[address] Eosinophils/100 WBC (Bld) 4.4 % Normal . [facility] Comment on above: Order Comment: Reaso n for Exam Lumbar spondylosis;Postoperative wound infection Performed By: #### P TT, PT, CBC ####[address] Erythrocyte distribution width (RBC) [Ratio] 13.3 % Normal 11.9-15.3 [facility] Comment on above: Order Comment: Reaso n for Exam Lumbar spondylosis;Postoperative wound infection Performed By: #### P TT, PT, CBC ####[address] Hematocrit (Bld) [Volume fraction] 28.8 % Low 34.0-46.4 [facility] Comment on above: Order Comment: Reaso n for Exam Lumbar spondylosis;Postoperative wound infection Performed By: #### P TT, PT, CBC ####[address] Hemoglobin (Bld) [Mass/Vol] 9.6 g/dL Low 11.8-15.4 [facility] Comment on above: Order Comment: Reaso n for Exam Lumbar spondylosis;Postoperative wound infection Performed By: #### P TT, PT, CBC ####[address] Lymphocytes (Bld) [#/Vol] 0.6 10*3/uL Low 1.00-4.8 [facility] Comment on above: Order Comment: Reaso n for Exam Lumbar spondylosis;Postoperative wound infection Performed By: #### P TT, PT, CBC ####[address] Lymphocytes/100 WBC (Bld) 14.8 % Normal . [facility] Comment on above: Order Comment: Reaso n for Exam Lumbar spondylosis;Postoperative wound infection Performed By: #### P TT, PT, CBC ####[address] MCH (RBC) [Entitic mass] 31.9 pg Normal 24.7-34.3 [facility] Comment on above: Order Comment: Reaso n for Exam Lumbar spondylosis;Postoperative wound infection Performed By: #### P TT, PT, CBC ####[address] MCV (RBC) [Entitic vol] 95.0 fL Normal 80-100 [facility] Comment on above: Order Comment: Reaso n for Exam Lumbar spondylosis;Postoperative wound infection Performed By: #### P TT, PT, CBC ####[address] Mean Corpuscular HGB Conc 33.5 g/dL Normal 32.0-35.0 [facility] Comment on above: Order Comment: Reaso n for Exam Lumbar spondylosis;Postoperative wound infection Performed By: #### P TT, PT, CBC ####[address] Monocytes (Bld) [#/Vol] 0.3 10*3/uL Normal 0.0-0.8 [facility] Comment on above: Order Comment: Reaso n for Exam Lumbar spondylosis;Postoperative wound infection Performed By: #### P TT, PT, CBC ####[address] Monocytes/100 WBC (Bld) 7.5 % Normal . [facility] Comment on above: Order Comment: Reaso n for Exam Lumbar spondylosis;Postoperative wound infection Performed By: #### P TT, PT, CBC ####[address] Neutrophils (Bld) [#/Vol] 3.1 10*3/uL Normal 1.8-7.7 [facility] Comment on above: Order Comment: Reaso n for Exam Lumbar spondylosis;Postoperative wound infection Performed By: #### P TT, PT, CBC ####[place] [id number] [facility] Neutrophils/100 WBC (Bld) 72.8 % Normal . [facility] Comment on above: Order Comment: Reaso n for Exam Lumbar spondylosis;Postoperative wound infection Performed By: #### P TT, PT, CBC ####[address] NRBC% 0.1 /100{WBC} Normal 0-0.5 [facility] Comment on above: Order Comment: Reaso n for Exam Lumbar spondylosis;Postoperative wound infection Performed By: #### P TT, PT, CBC ####[address] Platelet mean volume (Bld) [Entitic vol] 7.7 fL Normal 6.3-10.7 [facility] Comment on above: Order Comment: Reaso n for Exam Lumbar spondylosis;Postoperative wound infection Performed By: #### P TT, PT, CBC ####[address] Platelets (Bld) [#/Vol] 258 10*3/uL Normal 150-450 [facility] Comment on above: Order Comment: Reaso n for Exam Lumbar spondylosis;Postoperative wound infection Performed By: #### P TT, PT, CBC ####[place] [address] [place] RBC (Bld) [#/Vol] 3.03 10*6/uL Low 3.60-5.00 [facility] Comment on above: Order Comment: Reaso n for Exam Lumbar spondylosis;Postoperative wound infection Performed By: #### P TT, PT, CBC ####[place] [id number] [facility] WBC (Bld) [#/Vol] 4.3 10*3/uL Normal 3.8-11.6 [facility] Comment on above: Order Comment: Reaso n for Exam Lumbar spondylosis;Postoperative wound infection Performed By: #### P TT, PT, CBC ####[place] [id number] [place] [address] [facility] Partial Thromboplastin Timeo n 08-12-2023 aPTT Coag (Bld) [Time] 46.9 s High 25.1-36.5 Th e [facility] Comment on above: Order Comment: Reaso n for Exam Lumbar spondylosis;Postoperative wound infection List the anticoagulant: ASPIRIN Result Comment: A he matocrit value greater than 55% may lead to inaccurate results in coagulation testing. Patients having hematocrit values >55% require a special collection tube for coagulation studies. Please contact the laboratory at [phone] for redraw instructions. PERFORMED BY: [facility] [address] [place] [id number] PATHOLOGIST MAST MAKER LELE FALK M.D. Performed By: #### P TT, PT, CBC ####[address] [address] [facility] Prothrombin Time INRon 08-12 INR Coag (PPP) [Relative time] 2.5 {INR} Normal [facility] Comment on above: Order Comment: Reaso n [...] valves: 3 - 4.5 Performed By: #### P TT, PT, CBC ####[place] [id number] [facility] PT Coag (PPP) [Time] 29.5 s High 9.0-12.9 [facility] Comment on above: Order Comment: Reaso n for Exam Lumbar spondylosis;Postoperative wound infection List the anticoagulant: ASPIRIN Result Comment: A he matocrit value greater than 55% may lead to inaccurate results in coagulation testing. Patients having hematocrit values >55% require a special collection tube for coagulation studies. Please contact the laboratory at [phone] for redraw instructions. Performed By: #### P TT, PT, CBC ####[address] [address] [facility] Basic Metabolic Panelon - Anion gap [Moles/Vol] 7.2 mmol/L Normal 6.0-15.0 [facility] Comment on above: Performed By: #### C BC, BMP ####[place] [id number] [facility] Calcium [Mass/Vol] 8.1 mg/dL Low 8.6-10.3 [facility] Comment on above: Performed By: #### C BC, BMP ####[place] [id number] [facility] Chloride [Moles/Vol] 111 mmol/L High 98-107 [facility] Comment on above: Performed By: #### C BC, BMP ####[place] [id number] [facility] CO2 [Moles/Vol] 25.2 mmol/L Normal 21.0-31.0 [facility] Comment on above: Performed By: #### C BC, BMP ####[address] [address] [facility] Creatinine [Mass/Vol] 1.43 mg/dL High 0.60-1.20 [facility] Comment on above: Performed By: #### C BC, BMP ####[place] [id number] [facility] Creatinine Clr Calc Pharmacy 38.09 Normal [facility] Comment on above: Result Comment: PERF ORMED BY: [facility] [address] [place] [id number] PATHOLOGIST MAST MAKER LELE FALK M.D. Performed By: #### C BC, BMP ####[place] [id number] [facility] GFR/1.73 sq M.predicted MDRD (S/P/Bld) [Vol rate/Area] 38.727 mL/min/{1.73_m2} Normal [facility] Comment on above: Performed By: #### C BC, BMP ####[place] [address] Glucose [Mass/Vol] 121 mg/dL High 70-100 [facility] Comment on above: Result Comment: [facility] Glucose Reference Range is dependent on time and content of last meal. Glucose of more than 200 mg/dL in a nonstressed, ambulatory subject supports the diagnosis of Diabetes Mellitus. ADA recommended reference range Performed By: #### C BC, BMP ####[place] [address] Potassium [Moles/Vol] 4.4 mmol/L Normal 3.5-5.1 [facility] Comment on above: Performed By: #### C BC, BMP ####[address] Sodium [Moles/Vol] 139 mmol/L Normal 136-145 [facility] Comment on above: Performed By: #### C BC, BMP ####[address] Urea nitrogen [Mass/Vol] 25 mg/dL Normal 7-25 [facility] Comment on above: Performed By: #### C BC, BMP ####[address] Basophils Auto (Bld) [#/Vol] Ordered By: Niki Rms on 08-05-2023 Basophils (Bld) [#/Vol] 0.0 10*3/uL 0.0-0.2 [facility] Basophils/100 WBC Auto (Bld) Ordered By: Niki Blades on 08-05-2023 Basophils/100 WBC (Bld) 0.2 % . F [facility] Calcium [Mass/volume] in Ser um or PlasmaOrdered By: Niki Weeks on 08-05-2023 Calcium [Mass/Vol] 8.1 mg/dL 8.6-10.3 [facility] Carbon dioxide, total [Moles /volume] in Serum or PlasmaOrdered By: Niki Blades on 08-05-2023 CO2 [Moles/Vol] 25.2 mmol/L 21.0-31.0 [facility] Chloride [Moles/volume] in S akila or PlasmaOrdered By: Niki Blades on 08-05-2023 Chloride [Moles/Vol] 111 mmol/L 98-107 [facility] Complete Blood Count Auto Di ffon 08-05-2023 Basophils (Bld) [#/Vol] 0.0 10*3/uL Normal 0.0-0.2 [facility] Comment on above: Result Comment: PERF ORMED BY: [facility] [address] [place] [address] PATHOLOGIST MAST MAKER LELE FALK M.D. Performed By: #### C , BMP ####[address] Basophils/100 WBC (Bld) 0.2 % Normal . T [facility] Comment on above: Performed By: #### C , BMP ####[address] Eosinophils (Bld) [#/Vol] 0.1 10*3/uL Normal 0.0-0.45 [facility] Comment on above: Performed By: #### C BC, BMP ####[address] Eosinophils/100 WBC (Bld) 1.7 % Normal . [facility] Comment on above: Performed By: #### C BC, BMP ####[address] Erythrocyte distribution width (RBC) [Ratio] 13.5 % Normal 11.9-15.3 [facility] Comment on above: Performed By: #### C BC, BMP ####[address] Hematocrit (Bld) [Volume fraction] 29.9 % Low 34.0-46.4 [facility] Comment on above: Performed By: #### C BC, BMP ####[address] Hemoglobin (Bld) [Mass/Vol] 10.0 g/dL Low 11.8-15.4 [facility] Comment on above: Performed By: #### C BC, BMP ####[address] Lymphocytes (Bld) [#/Vol] 0.9 10*3/uL Low 1.00-4.8 [facility] Comment on above: Performed By: #### C BC, BMP ####[address] Lymphocytes/100 WBC (Bld) 11.8 % Normal . [facility] Comment on above: Performed By: #### C BC, BMP ####[address] MCH (RBC) [Entitic mass] 31.9 pg Normal 24.7-34.3 [facility] Comment on above: Performed By: #### C BC, BMP ####[address] MCV (RBC) [Entitic vol] 95.1 fL Normal 80-100 [facility] Comment on above: Performed By: #### C BC, BMP ####[address] Mean Corpuscular HGB Conc 33.5 g/dL Normal 32.0-35.0 [facility] Comment on above: Performed By: #### C BC, BMP ####[address] Monocytes (Bld) [#/Vol] 0.7 10*3/uL Normal 0.0-0.8 [facility] Comment on above: Performed By: #### C BC, BMP ####[address] Monocytes/100 WBC (Bld) 9.2 % Normal . [facility] Comment on above: Performed By: #### C BC, BMP ####[place] [address] [place] [address] [facility] Neutrophils (Bld) [#/Vol] 5.6 10*3/uL Normal 1.8-7.7 [facility] Comment on above: Performed By: #### C BC, BMP ####[address] [address] [facility] Neutrophils/100 WBC (Bld) 77.1 % Normal . [facility] Comment on above: Performed By: #### C BC, BMP ####[place] [address] [place] [address] [facility] NRBC% 0.4 /100{WBC} Normal 0-0.5 [facility] Comment on above: Performed By: #### C BC, BMP ####[place] [id number] [facility] Platelet mean volume (Bld) [Entitic vol] 7.6 fL Normal 6.3-10.7 [facility] Comment on above: Performed By: #### C BC, BMP ####[address] [address] [facility] Platelets (Bld) [#/Vol] 147 10*3/uL Low 150-450 [facility] Comment on above: Performed By: #### C BC, BMP ####[place] [id number] [facility] RBC (Bld) [#/Vol] 3.14 10*6/uL Low 3.60-5.00 [facility] Comment on above: Performed By: #### C BC, BMP ####[address] [address] [facility] WBC (Bld) [#/Vol] 7.3 10*3/uL Normal 3.8-11.6 [facility] Comment on above: Performed By: #### C BC, BMP ####[place] [id number] [facility] Creatinine [Mass/volume] in Serum or PlasmaOrdered By: Niki Weeks on 08-05-2023 Creatinine [Mass/Vol] 1.43 mg/dL 0.60-1.20 [facility] Eosinophils Auto (Bld) [#/Vo l]Ordered By: Niki Weeks on 08-05-2023 Eosinophils (Bld) [#/Vol] 0.1 10*3/uL 0.0-0.45 [facility] Eosinophils/100 WBC Auto (Bl d)Ordered By: Niki eWeks on 08-05-2023 Eosinophils/100 WBC (Bld) 1.7 % . [facility] Erythrocyte distribution wid th Auto (RBC) [Ratio]Ordered By: Niki Weeks on 08-05-2023 Erythrocyte distribution width (RBC) [Ratio] 13.5 % 11.9-15.3 [facility] Glucose [Mass/volume] in Ser um or PlasmaOrdered By: Niki Weeks on 08-05-2023 Glucose [Mass/Vol] 121 mg/dL 70-100 [facility] Comment on above: ADA recommended refe rence rangeRandom Glucose Reference Range is dependent on time and content of last meal. Glucose of more than 200 mg/dL in a nonstressed, ambulatory subject supports the diagnosis of Diabetes Mellitus. Hematocrit Auto (Bld) [Volum e fraction]Ordered By: Niki Weeks on 08-05-2023 Hematocrit (Bld) [Volume fraction] 29.9 % 34.0-46.4 [facility] Hemoglobin [Mass/volume] in BloodOrdered By: Niki Weeks on 08-05-2023 Hemoglobin (Bld) [Mass/Vol] 10.0 g/dL 11.8-15.4 [facility] Leukocytes [#/volume] correc tanesha for nucleated erythrocytes in Blood by Automated counOrdered By: Niki Weeks on 08-05-2023 WBC corrected for nucl RBC Auto (Bld) [#/Vol] 7.3 10*3/uL 3.8-11.6 [facility] Lymphocytes Auto (Bld) [#/Vo l]Ordered By: Niki Weeks on 08-05-2023 Lymphocytes (Bld) [#/Vol] 0.9 10*3/uL 1.00-4.8 [facility] Lymphocytes/100 WBC Auto (Bl d)Ordered By: Niki Blades on 08-05-2023 Lymphocytes/100 WBC (Bld) 11.8 % . [facility] MCH Auto (RBC) [Entitic mass ]Ordered By: Niki Blades on 08-05-2023 MCH (RBC) [Entitic mass] 31.9 pg 24.7-34.3 [facility] MCHC Auto (RBC) [Mass/Vol]Or dered By: Niki Blades on 08-05-2023 MCHC (RBC) [Mass/Vol] 33.5 g/dL 32.0-35.0 [facility] MCV Auto (RBC) [Entitic vol] Ordered By: Niki Blades on 08-05-2023 MCV (RBC) [Entitic vol] 95.1 fL 80-100 F [facility] Monocytes Auto (Bld) [#/Vol] Ordered By: Niki Blades on 08-05-2023 Monocytes (Bld) [#/Vol] 0.7 10*3/uL 0.0-0.8 [facility] Monocytes/100 WBC Auto (Bld) Ordered By: Niki Blades on 08-05-2023 Monocytes/100 WBC (Bld) 9.2 % . F [facility] Neutrophils Auto (Bld) [#/Vo l]Ordered By: Niki Blades on 08-05-2023 Neutrophils (Bld) [#/Vol] 5.6 10*3/uL 1.8-7.7 [facility] Neutrophils/100 WBC Auto (Bl d)Ordered By: Niki Blades on 08-05-2023 Neutrophils/100 WBC (Bld) 77.1 % . [facility] No Panel InformationOrdered By: Niki Weeks on 08-05-2023 Estimated GFR (CKD-EPI) 38.727 mL/Min [facility] Creatinine Clearance (Chem 38.09 [facility] Nucleated erythrocytes [Pres ence] in Blood by Automated countOrdered By: Niki Weeks on 08-05-2023 Nucleated RBC Auto Ql (Bld) 0.4 /100{WBC} 0-0.5 [facility] Platelet mean volume Auto (B ld) [Entitic vol]Ordered By: Niki Blades on 08-05-2023 Platelet mean volume (Bld) [Entitic vol] 7.6 fL 6.3-10.7 [facility] Platelets Auto (Bld) [#/Vol] Ordered By: Niki Blades on 08-05-2023 Platelets (Bld) [#/Vol] 147 10*3/uL 150-450 [facility] Potassium [Moles/volume] in Serum or PlasmaOrdered By: Niki Blades on 08-05-2023 Potassium [Moles/Vol] 4.4 mmol/L 3.5-5.1 [facility] RBC Auto (Bld) [#/Vol]Ordere d By: Niki Blades on 08-05-2023 RBC (Bld) [#/Vol] 3.14 10*6/uL 3.60-5.00 [facility] Serum or plasma anion gap de terminationOrdered By: Niki Blades on 08-05-2023 Anion gap [Moles/Vol] 7.2 mmol/L 6.0-15.0 [facility] Sodium [Moles/volume] in Ser um or PlasmaOrdered By: Niki Blades on 08-05-2023 Sodium [Moles/Vol] 139 mmol/L 136-145 [facility] Urea nitrogen [Mass/volume] in Serum or PlasmaOrdered By: Niki Blades on 08-05-2023 Urea nitrogen [Mass/Vol] 25 mg/dL 7-25 [facility] WBC Auto (Bld) [#/Vol]Ordere d By: Niki Blades on 08-05-2023 WBC (Bld) [#/Vol] 7.3 10*3/uL 3.8-11.6 [facility] Basic Metabolic Panelon 07-17 Anion gap [Moles/Vol] 7.9 mmol/L Normal 6.0-15.0 [facility] Comment on above: Performed By: #### B MP, CBC #### [address] Calcium [Mass/Vol] 7.4 mg/dL Low 8.6-10.3 [facility] Comment on above: Performed By: #### B MP, CBC #### [address] Chloride [Moles/Vol] 110 mmol/L High 98-107 [facility] Comment on above: Performed By: #### B MP, CBC #### [address] CO2 [Moles/Vol] 23.9 mmol/L Normal 21.0-31.0 [facility] Comment on above: Performed By: #### B MP, CBC #### [address] Creatinine [Mass/Vol] 1.48 mg/dL High 0.60-1.20 [facility] Comment on above: Performed By: #### B MP, CBC #### [address] Creatinine Clr Calc Pharmacy 34.66 Normal [facility] Comment on above: Result Comment: PERF ORMED BY: [place] [address] PATHOLOGIST MAST MAKER LELE FALK M.D. Performed By: #### B MP, CBC #### [address] GFR/1.73 sq M.predicted MDRD (S/P/Bld) [Vol rate/Area] 37.163 mL/min/{1.73_m2} Normal [facility] Comment on above: Performed By: #### B MP, CBC #### [address] Glucose [Mass/Vol] 129 mg/dL High 70-100 [facility] Comment on above: Result Comment: [place] Glucose Reference Range is dependent on time and content of last meal. Glucose of more than 200 mg/dL in a nonstressed, ambulatory subject supports the diagnosis of Diabetes Mellitus. ADA recommended reference range Performed By: #### B MP, CBC #### [address] Potassium [Moles/Vol] 4.8 mmol/L Normal 3.5-5.1 [facility] Comment on above: Performed By: #### B MP, CBC #### [address] Sodium [Moles/Vol] 137 mmol/L Normal 136-145 [facility] Comment on above: Performed By: #### B MP, CBC #### [address] Urea nitrogen [Mass/Vol] 24 mg/dL Normal 7-25 [facility] Comment on above: Performed By: #### B MP, CBC #### [address] Complete Blood Count Auto Di ffon 08-04-2023 Basophils (Bld) [#/Vol] 0.0 10*3/uL Normal 0.0-0.2 [facility] Comment on above: Result Comment: PERF ORMED BY: [place] [address] PATHOLOGIST MAST MAKER LELE FALK M.D. Performed By: #### B MP, CBC #### [address] Basophils/100 WBC (Bld) 0.0 % Normal . T evette [facility] Comment on above: Performed By: #### B MP, CBC #### [place] [address] [place] Eosinophils (Bld) [#/Vol] 0.0 10*3/uL Normal 0.0-0.45 [facility] Comment on above: Performed By: #### B MP, CBC #### [address] Eosinophils/100 WBC (Bld) 0.0 % Normal . [facility] Comment on above: Performed By: #### B MP, CBC #### [address] Erythrocyte distribution width (RBC) [Ratio] 13.6 % Normal 11.9-15.3 [facility] Comment on above: Performed By: #### B MP, CBC #### [address] Hematocrit (Bld) [Volume fraction] 31.5 % Low 34.0-46.4 [facility] Comment on above: Performed By: #### B MP, CBC #### [address] Hemoglobin (Bld) [Mass/Vol] 10.5 g/dL Low 11.8-15.4 [facility] Comment on above: Performed By: #### B MP, CBC #### [address] Lymphocytes (Bld) [#/Vol] 0.5 10*3/uL Low 1.00-4.8 [facility] Comment on above: Performed By: #### B MP, CBC #### [address] Lymphocytes/100 WBC (Bld) 4.4 % Normal . [facility] Comment on above: Performed By: #### B MP, CBC #### [address] MCH (RBC) [Entitic mass] 31.6 pg Normal 24.7-34.3 [facility] Comment on above: Performed By: #### B MP, CBC #### [address] MCV (RBC) [Entitic vol] 94.8 fL Normal 80-100 T he [facility] Comment on above: Performed By: #### B MP, CBC #### [address] Mean Corpuscular HGB Conc 33.3 g/dL Normal 32.0-35.0 [facility] Comment on above: Performed By: #### B MP, CBC #### [address] Monocytes (Bld) [#/Vol] 0.5 10*3/uL Normal 0.0-0.8 [facility] Comment on above: Performed By: #### B MP, CBC #### [address] Monocytes/100 WBC (Bld) 4.0 % Normal . T [facility] Comment on above: Performed By: #### B MP, CBC #### [address] Neutrophils (Bld) [#/Vol] 10.4 10*3/uL High 1.8-7.7 [facility] Comment on above: Performed By: #### B MP, CBC #### [address] Neutrophils/100 WBC (Bld) 91.6 % Normal . [facility] Comment on above: Performed By: #### B MP, CBC #### [address] NRBC% 0.1 /100{WBC} Normal 0-0.5 [facility] Comment on above: Performed By: #### B MP, CBC #### [address] Platelet mean volume (Bld) [Entitic vol] 7.8 fL Normal 6.3-10.7 [facility] Comment on above: Performed By: #### B MP, CBC #### [place] [address] [place] Platelets (Bld) [#/Vol] 172 10*3/uL Normal 150-450 [facility] Comment on above: Performed By: #### B MP, CBC #### [place] [address] [place] RBC (Bld) [#/Vol] 3.32 10*6/uL Low 3.60-5.00 [facility] Comment on above: Performed By: #### B MP, CBC #### [address] WBC (Bld) [#/Vol] 11.4 10*3/uL Normal 3.8-11.6 [facility] Comment on above: Performed By: #### B MP, CBC #### [facility] [id number] [facility] ABO/Rh Retypeon 08-03-2023 ABO/RH Recheck Result Positive Normal [facility] Comment on above: Result Comment: PERF ORMED BY: [facility] [address] [place] [id number] PATHOLOGIST MAST MAKER LELE FALK M.D. Activated partial thrombopla stin time (aPTT) in platelet poor plasma by coagulation aOrdered By: Cj Gamboa on 08-03-2023 aPTT Coag (PPP) [Time] 44.3 s 25.1-36.5 [facility] Comment on above: A hematocrit value g reater than 55% may lead to inaccurate results in coagulation testing. Patients having hematocrit values >55% require a special collection tube for coagulation studies. Please contact the laboratory at [phone] for redraw instructions. INR in Platelet poor plasma by Coagulation assayOrdered By: Cj Gamboa on 08-03-2023 INR Coag (PPP) [Relative time] 2.1 {INR} [facility] Comment on above: INR Therapeutic Rang e A) Pre- and Peroperative OAT started two weeks before surgery. NOT HIP SURGERY: 1.5 - 2.5 HIP SURGERY: 2 - 3B) Primary and secondary prevention of venous THROMBOSIS: 2 - 3C) Active venous thrombosis, pulmonary embolismand prevention of recurrent venous thrombosis: 2 - 3D) Prevention of arterial thromboembolismincluding patients with mechanical heart valves: 3 - 4.5 [facility] 08-03-2023 L ------ Specimen: [id number] Received: 08/03/23 Status: SHARON Russo Num: [id number] Spec Type: Surgical Subm Dr: iNki Weeks MD Tissues: A Gross Only (BACK FB) Procedures: Level 1 Gross Age/ Patient Sex Location Account Attending Physician Cassi Rodrigez 73/F 4N [id number] Niki Weeks MD SPEC NUM: [id number] RECD: 08/03/23 STATUS: SHARON RUSSO NUM: [id number] GRACIA: 08/03/23- [facility] DR: Niki Weeks MD ENTERED: 08/03/[address] [facility] [address]: SPEC TYPE: Surgical DEPT: S [...] is taken. Gross examination only. CPT Codes 58973 Gross Photo Specimen: [id number] Received: 08/03/23 Status: SHARON Russo Num: [id number] Spec Type: Surgical Subm Dr: Niki Weeks MD Tissues: A Gross Only (BACK FB) Procedures: Level 1 Gross Patient: Cassi Rodrigez [id number] (Continued) Signed (signature on file) Prashanth Wynn MD 08/05/23921 Normal [facility] Partial Thromboplastin Timeo n 08-03-2023 aPTT Coag (Bld) [Time] 44.3 s High 25.1-36.5 Th e [facility] Comment on above: Result Comment: A he matocrit value greater than 55% may lead to inaccurate results in coagulation testing. Patients having hematocrit values >55% require a special collection tube for coagulation studies. Please contact the laboratory at [phone] for redraw instructions. PERFORMED BY: [place] [address] PATHOLOGIST MAST MAKER LELE FALK M.D. Performed By: #### P T, PTT #### [address] Prothrombin Time INRon 08-03 INR Coag (PPP) [Relative time] 2.1 {INR} Normal [facility] Comment on above: Result Comment: INR Therapeutic [...] valves: 3 - 4.5 Performed By: #### P T, PTT #### [place] [id number] [facility] PT Coag (PPP) [Time] 24.8 s High 9.0-12.9 [facility] Comment on above: Result Comment: A he matocrit value greater than 55% may lead to inaccurate results in coagulation testing. Patients having hematocrit values >55% require a special collection tube for coagulation studies. Please contact the laboratory at [phone] for redraw instructions. Performed By: #### P T, PTT #### [place] [id number] [facility] Prothrombin time (PT)Ordered By: Cj Gamboa on 08-03-2023 PT Coag (PPP) [Time] 24.8 s 9.0-12.9 [facility] Comment on above: A hematocrit value g reater than 55% may lead to inaccurate results in coagulation testing. Patients having hematocrit values >55% require a special collection tube for coagulation studies. Please contact the laboratory at [phone] for redraw instructions. Type and Screenon 08-03-2023 ABO and Rh group Nom (Bld) Blood group A Rh(D) positive Normal [facility] XR lumbar spine 1Von 023 XR lumbar spine 1V [facility] Main [place] [address] [place] [address] XRay Report Signed Patient: Cassi Rodrigez MR#: [id number] 8 : 1950 Acct:[id number] Age/Sex: 73 / F ADM Date: 08/03/23 Loc: [place] Room: Type: [facility] Attending Dr: Niki Weeks MD Copies to: Niki Weeks MD Ordering Provider: Niki Weeks MD Date of Service: 08/03/23 XR/XR lumbar [...] Paris Phoenix M.D.08/03/2023 9:50 AM Dictation Location: [place] [address] Transcribed By: [facility] 08/03/23 0950 Dictated By: Paris Phoenix MD 08/03/23 0940 Signed By: 08/03/23 0950 Normal [facility] Basic Metabolic Panelon Anion gap [Moles/Vol] 9.3 mmol/L Normal 6.0-15.0 [facility] Comment on above: Performed By: #### C BC, BMP #### [facility] [address] [place], [place] [id number] [facility] Calcium [Mass/Vol] 8.6 mg/dL Normal 8.6-10.3 [facility] Comment on above: Result Comment: PERF ORMED BY: [place] [address] PATHOLOGIST MAST MAKER LELE FALK M.D. Performed By: #### C BC, BMP #### [place] [address] [place] Chloride [Moles/Vol] 109 mmol/L High 98-107 [facility] Comment on above: Performed By: #### C BC, BMP #### [place] [address] [place] CO2 [Moles/Vol] 26.3 mmol/L Normal 21.0-31.0 [facility] Comment on above: Performed By: #### C BC, BMP #### [place] [address] [place] Creatinine [Mass/Vol] 1.52 mg/dL High 0.60-1.20 [facility] Comment on above: Performed By: #### C BC, BMP #### [place] [address] [place] GFR/1.73 sq M.predicted MDRD (S/P/Bld) [Vol rate/Area] 35.992 mL/min/{1.73_m2} Normal [facility] Comment on above: Performed By: #### C BC, BMP #### [place] [address] [place] Glucose [Mass/Vol] 120 mg/dL High 70-100 [facility] Comment on above: Result Comment: [place] Glucose Reference Range is dependent on time and content of last meal. Glucose of more than 200 mg/dL in a nonstressed, ambulatory subject supports the diagnosis of Diabetes Mellitus. ADA recommended reference range Performed By: #### C BC, BMP #### [place] [address] [place] Potassium [Moles/Vol] 4.6 mmol/L Normal 3.5-5.1 [facility] Comment on above: Performed By: #### C BC, BMP #### [address] [address] [place] Sodium [Moles/Vol] 140 mmol/L Normal 136-145 [facility] Comment on above: Performed By: #### C SUKUMAR, EARL #### [facility] [address] Urea nitrogen [Mass/Vol] 30 mg/dL High 7-25 [facility] Comment on above: Performed By: #### C SUKUMAR, BMP #### [facility] [address] Basophils Auto (Bld) [#/Vol] Ordered By: Niki Blades on 07-20-2023 Basophils (Bld) [#/Vol] 0.0 10*3/uL 0.0-0.2 [facility] Basophils/100 WBC Auto (Bld) Ordered By: Niki Blades on 07-20-2023 Basophils/100 WBC (Bld) 0.6 % . F [facility] Bilirubin Test strip Ql (U)O rdered By: Niki Blades on 07-20-2023 Bilirubin Ql (U) Negative Negative [facility] Calcium [Mass/volume] in Ser um or PlasmaOrdered By: Niki Blades on 07-20-2023 Calcium [Mass/Vol] 8.6 mg/dL 8.6-10.3 [facility] Carbon dioxide, total [Moles /volume] in Serum or PlasmaOrdered By: Niki Blades on 07-20-2023 CO2 [Moles/Vol] 26.3 mmol/L 21.0-31.0 [facility] Chloride [Moles/volume] in S akila or PlasmaOrdered By: Niki Blades on 07-20-2023 Chloride [Moles/Vol] 109 mmol/L 98-107 [facility] Color Auto (U)Ordered By: Simpson Blades on 07-20-2023 Color (U) Yellow Yellow [facility] Complete Blood Count Auto Di ffon 07-20-2023 Basophils (Bld) [#/Vol] 0.0 10*3/uL Normal 0.0-0.2 [facility] Comment on above: Result Comment: PERF ORMED BY: [place] [address] PATHOLOGIST MAST MAKER LELE FALK M.D. Performed By: #### C BC, BMP #### [address] Basophils/100 WBC (Bld) 0.6 % Normal . T evette [facility] Comment on above: Performed By: #### C BC, BMP #### [address] Eosinophils (Bld) [#/Vol] 0.3 10*3/uL Normal 0.0-0.45 [facility] Comment on above: Performed By: #### C BC, BMP #### [address] Eosinophils/100 WBC (Bld) 4.9 % Normal . [facility] Comment on above: Performed By: #### C BC, BMP #### [address] Erythrocyte distribution width (RBC) [Ratio] 13.5 % Normal 11.9-15.3 [facility] Comment on above: Performed By: #### C BC, BMP #### [address] Hematocrit (Bld) [Volume fraction] 38.3 % Normal 34.0-46.4 [facility] Comment on above: Performed By: #### C BC, BMP #### [address] Hemoglobin (Bld) [Mass/Vol] 12.6 g/dL Normal 11.8-15.4 [facility] Comment on above: Performed By: #### C BC, BMP #### [address] Lymphocytes (Bld) [#/Vol] 0.7 10*3/uL Low 1.00-4.8 [facility] Comment on above: Performed By: #### C BC, BMP #### [place] [address] [place] Lymphocytes/100 WBC (Bld) 13.8 % Normal . [facility] Comment on above: Performed By: #### C BC, BMP #### [address] MCH (RBC) [Entitic mass] 30.9 pg Normal 24.7-34.3 [facility] Comment on above: Performed By: #### C BC, BMP #### [address] MCV (RBC) [Entitic vol] 93.7 fL Normal 80-100 T [facility] Comment on above: Performed By: #### C BC, BMP #### [address] Mean Corpuscular HGB Conc 33.0 g/dL Normal 32.0-35.0 [facility] Comment on above: Performed By: #### C BC, BMP #### [address] Monocytes (Bld) [#/Vol] 0.4 10*3/uL Normal 0.0-0.8 [facility] Comment on above: Performed By: #### C BC, BMP #### [address] Monocytes/100 WBC (Bld) 6.9 % Normal . T [facility] Comment on above: Performed By: #### C BC, BMP #### [address] Neutrophils (Bld) [#/Vol] 3.8 10*3/uL Normal 1.8-7.7 [facility] Comment on above: Performed By: #### C BC, BMP #### [address] Neutrophils/100 WBC (Bld) 73.8 % Normal . [facility] Comment on above: Performed By: #### C BC, BMP #### [address] NRBC% 0.1 /100{WBC} Normal 0-0.5 [facility] Comment on above: Performed By: #### C BC, BMP #### [facility] [address] Platelet mean volume (Bld) [Entitic vol] 7.2 fL Normal 6.3-10.7 [facility] Comment on above: Performed By: #### C BC, BMP #### [facility] [address] [place] [address] [place] Platelets (Bld) [#/Vol] 194 10*3/uL Normal 150-450 [facility] Comment on above: Performed By: #### C BC, BMP #### [facility] [address] RBC (Bld) [#/Vol] 4.09 10*6/uL Normal 3.60-5.00 [facility] Comment on above: Performed By: #### C BC, BMP #### [facility] [address] WBC (Bld) [#/Vol] 5.2 10*3/uL Normal 3.8-11.6 [facility] Comment on above: Performed By: #### C BC, BMP #### [address] Creatinine [Mass/volume] in Serum or PlasmaOrdered By: Niki Weeks on 07-20-2023 Creatinine [Mass/Vol] 1.52 mg/dL 0.60-1.20 [facility] ECG 12 lead ECGon 07-20-2023 ECG 12 lead ECG [place] [address] Electrocardiograph Report Signed Patient: Cassi Rodrigez MR#: [id number] 8 : 1950 Acct:[id number] Age/Sex: 73 / F ADM Date: 07/20/23 Loc: PS Room: Type: [facility] Attending Dr: Niki Weeks MD Ordering Provider: Niki Weeks MD Date of Service: 07/20/2304/06/1046 ECG/ECG 12 [...] No previous ECGs available Confirmed by NIKKI BROCK MD ([id number]) on 07/20/2023 11:22:45 AM Referred By: LEE WEEKS Electronically Signed By:NIKKI BROCK MD Transcribed By: MUS Signed By Nikki Brock MD 0 07/20/23 1122 Normal [facility] Eosinophils Auto (Bld) [#/Vo l]Ordered By: Niki Weeks on 07-20-2023 Eosinophils (Bld) [#/Vol] 0.3 10*3/uL 0.0-0.45 [facility] Eosinophils/100 WBC Auto (Bl d)Ordered By: Niki Weeks on 07-20-2023 Eosinophils/100 WBC (Bld) 4.9 % . [facility] Erythrocyte distribution wid th Auto (RBC) [Ratio]Ordered By: Niki Weeks on 07-20-2023 Erythrocyte distribution width (RBC) [Ratio] 13.5 % 11.9-15.3 [facility] Glucose [Mass/volume] in Ser um or PlasmaOrdered By: Niki Weeks on 07-20-2023 Glucose [Mass/Vol] 120 mg/dL 70-100 [facility] Comment on above: ADA recommended refe rence rangeRandom Glucose Reference Range is dependent on time and content of last meal. Glucose of more than 200 mg/dL in a nonstressed, ambulatory subject supports the diagnosis of Diabetes Mellitus. Hematocrit Auto (Bld) [Volum e fraction]Ordered By: Niki Weeks on 07-20-2023 Hematocrit (Bld) [Volume fraction] 38.3 % 34.0-46.4 [facility] Hemoglobin [Mass/volume] in BloodOrdered By: Niki Weeks on 07-20-2023 Hemoglobin (Bld) [Mass/Vol] 12.6 g/dL 11.8-15.4 [facility] Ketones Auto test strip (U) [Mass/Vol]Ordered By: Niki Blades on 07-20-2023 Ketones (U) [Mass/Vol] Negative Negative Fi [facility] Leukocytes [#/volume] correc tanesha for nucleated erythrocytes in Blood by Automated counOrdered By: Niki Blades on 07-20-2023 WBC corrected for nucl RBC Auto (Bld) [#/Vol] 5.2 10*3/uL 3.8-11.6 [facility] Lymphocytes Auto (Bld) [#/Vo l]Ordered By: Niki Blades on 07-20-2023 Lymphocytes (Bld) [#/Vol] 0.7 10*3/uL 1.00-4.8 [facility] Lymphocytes/100 WBC Auto (Bl d)Ordered By: Niki Blades on 07-20-2023 Lymphocytes/100 WBC (Bld) 13.8 % . [facility] MCH Auto (RBC) [Entitic mass ]Ordered By: Niki Blades on 07-20-2023 MCH (RBC) [Entitic mass] 30.9 pg 24.7-34.3 [facility] MCHC Auto (RBC) [Mass/Vol]Or dered By: Niki Blades on 07-20-2023 MCHC (RBC) [Mass/Vol] 33.0 g/dL 32.0-35.0 [facility] MCV Auto (RBC) [Entitic vol] Ordered By: Niki Blades on 07-20-2023 MCV (RBC) [Entitic vol] 93.7 fL 80-100 F [facility] Monocytes Auto (Bld) [#/Vol] Ordered By: Niki Blades on 07-20-2023 Monocytes (Bld) [#/Vol] 0.4 10*3/uL 0.0-0.8 [facility] Monocytes/100 WBC Auto (Bld) Ordered By: Niki Blades on 07-20-2023 Monocytes/100 WBC (Bld) 6.9 % . F [facility] Neutrophils Auto (Bld) [#/Vo l]Ordered By: Niki Blades on 07-20-2023 Neutrophils (Bld) [#/Vol] 3.8 10*3/uL 1.8-7.7 [facility] Neutrophils/100 WBC Auto (Bl d)Ordered By: Niki Weeks on 07-20-2023 Neutrophils/100 WBC (Bld) 73.8 % . [facility] Nitrite Test strip Ql (U)Ord ered By: Niki Weeks on 07-20-2023 Nitrite Ql (U) Negative Negative [facility] No Panel InformationOrdered By: Niki Weeks on 07-20-2023 Estimated GFR (CKD-EPI) 35.992 mL/Min [facility] Creatinine Clearance (Chem N/A [facility] Nucleated erythrocytes [Pres ence] in Blood by Automated countOrdered By: Niki Weeks on 07-20-2023 Nucleated RBC Auto Ql (Bld) 0.1 /100{WBC} 0-0.5 [facility] Platelet mean volume Auto (B ld) [Entitic vol]Ordered By: Niki Weeks on 07-20-2023 Platelet mean volume (Bld) [Entitic vol] 7.2 fL 6.3-10.7 [facility] Platelets Auto (Bld) [#/Vol] Ordered By: Niki Weeks on 07-20-2023 Platelets (Bld) [#/Vol] 194 10*3/uL 150-450 [facility] Potassium [Moles/volume] in Serum or PlasmaOrdered By: Niki Weeks on 07-20-2023 Potassium [Moles/Vol] 4.6 mmol/L 3.5-5.1 [facility] Protein Auto test strip (U) [Mass/Vol]Ordered By: Niki Weeks on 07-20-2023 Protein (U) [Mass/Vol] Negative Negative [facility] RBC Auto (Bld) [#/Vol]Ordere d By: Niki Blades on 07-20-2023 RBC (Bld) [#/Vol] 4.09 10*6/uL 3.60-5.00 [facility] Serum or plasma anion gap de terminationOrdered By: Niki Weeks on 07-20-2023 Anion gap [Moles/Vol] 9.3 mmol/L 6.0-15.0 [facility] Sodium [Moles/volume] in Ser um or PlasmaOrdered By: Niki Blades on 07-20-2023 Sodium [Moles/Vol] 140 mmol/L 136-145 [facility] Specific gravity Auto test s trip (U) [Rel density]Ordered By: Niki Blades on 07-20-2023 Specific gravity (U) [Rel density] 1.021 1.001-1.03 0 [facility] Urea nitrogen [Mass/volume] in Serum or PlasmaOrdered By: Niki Blades on 07-20-2023 Urea nitrogen [Mass/Vol] 30 mg/dL 7- [facility] Urinalysison 07-20-2023 Appearance (U) Clear Normal Clear [facility] Comment on above: Order Comment: Name Collection Type:: Clean-Voided Midstream Performed By: #### U A ####[address] Bilirubin,Urine Negative Normal Negative [facility] Comment on above: Order Comment: Name Collection Type:: Clean-Voided Midstream Performed By: #### U A ####[address] Color (U) Yellow Normal Yellow [facility] Comment on above: Order Comment: Name Collection Type:: Clean-Voided Midstream Performed By: #### U A ####[place] [id number] [facility] Glucose Ql (U) Normal Normal Normal [facility] Comment on above: Order Comment: Name Collection Type:: Clean-Voided Midstream Performed By: #### U A ####[place] [id number] [facility] Ketones Ql (U) Negative Normal Negative [facility] Comment on above: Order Comment: Name Collection Type:: Clean-Voided Midstream Performed By: #### U A ####[place] [id number] [facility] Leukocyte esterase Test strip Ql (U) Negative Normal Negative [facility] Comment on above: Order Comment: Name Collection Type:: Clean-Voided Midstream Performed By: #### U A ####[place] [id number] [facility] Nitrite,Urine Negative Normal Negative [facility] Comment on above: Order Comment: Name Collection Type:: Clean-Voided Midstream Performed By: #### U A ####[place] [id number] [facility] Occult Blood,Urine Negative Normal Negative [facility] Comment on above: Order Comment: Name Collection Type:: Clean-Voided Midstream Result Comment: PERF ORMED BY: [facility] [address] [place] [address] PATHOLOGIST MAST MAKER LELE FALK M.D. Performed By: #### U A ####[place] [id number] [facility] pH (U) 5.5 [pH] Normal 5.0-9.0 [facility] Comment on above: Order Comment: Name Collection Type:: Clean-Voided Midstream Performed By: #### U A ####[place] [id number] [facility] Protein,Urine Negative Normal Negative [facility] Comment on above: Order Comment: Name Collection Type:: Clean-Voided Midstream Performed By: #### U A ####[address] Specificy Dexter,Urine 1.021 Normal 1.00 1-1.03 0 [facility] Comment on above: Order Comment: Name Collection Type:: Clean-Voided Midstream Performed By: #### U A ####[place] [id number] [facility] Urobilinogen,Urine Normal Normal Normal [facility] Comment on above: Order Comment: Name Collection Type:: Clean-Voided Midstream Performed By: #### U A ####[place] [id number] [facility] Urine clarity by refractomet ry automatedOrdered By: Niki Weeks on 07-20-2023 Clarity Refractometry automated (U) Clear Clear [facility] Urine glucose measurement by automated test strip (mass/volume)Ordered By: Niki Weeks on 07-20-2023 Glucose Auto test strip (U) [Mass/Vol] Normal mg/dL Normal [facility] Urine hemoglobin detection b y automated test stripOrdered By: Niki Weeks on 07-20-2023 Hemoglobin Auto test strip Ql (U) Negative Negative [facility] Urine leukocyte esterase det ection by automated test stripOrdered By: Niki Weeks on 07-20-2023 Leukocyte esterase Auto test strip Ql (U) Negative Negative [facility] Urobilinogen Auto test strip (U) [Mass/Vol]Ordered By: Niki Weeks on 07-20-2023 Urobilinogen (U) [Mass/Vol] Normal mg/dL Normal [facility] WBC Auto (Bld) [#/Vol]Ordere d By: Niki Weeks on 07-20-2023 WBC (Bld) [#/Vol] 5.2 10*3/uL 3.8-11.6 [facility] pH Auto test strip (U)Ordere d By: Niki Weeks on 07-20-2023 pH (U) 5.5 [pH] 5.0-9.0 [facility] No Panel Informationon 06-16 BLANK _ [facility] Implant Date 05/22/2015 [facility] Model 5076 [employer] Novus [facility] PACEMAKER REMOTE CHECKon AV Delay Adaptive Paced Minimum (ms) 180 ms [facility] AV Delay Adaptive Sensed Minimum (ms) 150 ms [facility] AV Delay Adaptive Status DISABLED [facility] Battery Voltage (volts) 2.94 V [facility] Godfrey RA Pacing Amplitude (volts) 1.5 V [facility] Godfrey RA Pacing Polarity BI [facility] Godfrey RA Pacing Pulse Width (ms) 0.4 ms [facility] Godfrey RA Sensing Amplitude (mvolts) 0.3 mV [facility] Godfrey RA Sensing Blanking Period (ms) 150 ms [facility] Godfrey RA Sensing Polarity BI [facility] Godfrey RA Sensing Refractory Period (ms) Auto [facility] Godfrey RV Pacing Amplitude (volts) 2 V [facility] Godfrey RV Pacing Polarity BI [facility] Godfrey RV Pacing Pulse Width (ms) 0.4 ms [facility] Godfrey RV Sensing Amplitude (mvolts) 0.9 mV [facility] Godfrey RV Sensing Blanking Period (ms) 200 ms [facility] Godfrey RV Sensing Polarity BI [facility] Hysteresis Rate (bpm) DISABLED [facility] Lead1 Mfg MDT [facility] Lead2 Mfg MDT [facility] Location RV [facility] Location RA [facility] Lower Rate (bpm) 60 {beats}/min [facility] Max Sensor Rate (bmp) 130 {beats}/min [facility] Model [id number] COBOS [facility] PM-Device Mflizet KELLER [facility] PM-Percent Pacing (A) 99.76 % [facility] PM-Percent Pacing (V) 0.11 % [facility] PM-PMT Intervention ENABLED [facility] PM-PVC Intervention ENABLED [facility] PM-Rate Modulation Acceleration Reaction 30 s [facility] PM-Rate Modulation ADL Rate (bpm) 100 {beats}/min [facility] PM-Rate Modulation Deceleration Exercise [facility] PM-Rate Modulation Threshold MediumLow [facility] RA Bipolar Impedance ohms 437 ohm [facility] RA Unipolar Impedance ohms 399 ohm [facility] RV Bipolar Impedance ohms 532 ohm [facility] RV Unipolar Impedance 494 ohm [facility] Serial Number [id number] [facility] Serial Number [id number] [facility] Serial Number [id number] [facility] Thresh RA Capture Amplitude (volts) 0.5 V [facility] Thresh RA Capture Duration (ms) 0.4 ms [facility] Thresh RA Sensing Amplitude (mvolts) 2.25 mV [facility] Thresh RV Capture Amplitude (volts) 0.75 V [facility] Thresh RV Capture Duration (ms) 0.4 ms [facility] Thresh RV Sensing Amplitude (mvolts) 12.875 mV [facility] Tracking Rate (bpm) 130 {beats}/min [facility] Keegan 06-07-2023 JESSICA Telephone (CARDAV) -- CASSI RODRIGEZ ([id number]) 1950 F Date Time Provider Department 06/07/23 KITTY VALENTE During your visit today, we recorded the [...] Date Reviewed: 09/10/2022 Reviewed by: Lauren Otero APRN.OTR DRIVER - Fully Assessed Reason for Visit: pacemaker [...] by SALO FREEDMAN RN [facility]07/23 [facility] Creat[facility] (Bld) [Mass/Vol]O rdered By: Broderick Howard on 06-04-2023 Creatinine [Mass/Vol] 1.6 mg/dL 0.6-1.3 [facility] Comment on above: ER/ESD physician is notified/shown all ISTAT results.Critical values may be confirmed by laboratory testing ifdeemed necessary by ER attending doctor. XR pre/post mri xrayon 06-04 XR pre/post mri xray [facility] [address] MRI Report Signed Patient: Cassi Rodrigez MR#: [id number] 8 : 1950 Acct:[id number] Age/Sex: 73 / F ADM Date: 06/04/23 Loc: MR Room: Type[facility] Attending Dr: Broderick Howard DO Copies to: Broderick Howard DO Ordering Provider: Broderick Howard DO Date of Service: 06/04/23 MR/MR lumbar spine wo/w con: M47.27 ([id number]) XR/XR pre/post mri xray: M47.27 MR lumbar [...] Arnel Simon M.D.06/04/2023 1:31 PM Dictation Location: [place] [address] Transcribed By: TONO 06/04/23 1331 Dictated By: Arnel Simon II, MD 06/04/23 1319 Signed By: 06/04/23 1331 Normal [facility] Physician [facility] No Panel Informationon 02-24 BLANK _ [facility] Implant Date 05/22/2015 [facility] Model 5076 [employer] [facility] PACEMAKER REMOTE CHECKon AV Delay Adaptive Paced Minimum (ms) 180 ms [facility] AV Delay Adaptive Sensed Minimum (ms) 150 ms [facility] AV Delay Adaptive Status DISABLED [facility] Battery Voltage (volts) 2.95 V [facility] Godfrey RA Pacing Amplitude (volts) 1.5 V [facility] Godfrey RA Pacing Polarity BI [facility] Godfrey RA Pacing Pulse Width (ms) 0.4 ms [facility] Godfrey RA Sensing Amplitude (mvolts) 0.3 mV [facility] Godfrey RA Sensing Blanking Period (ms) 150 ms [facility] Godfrey RA Sensing Polarity BI [facility] RA Sensing Refractory Period (ms) Auto [facility] Godfrey RV Pacing Amplitude (volts) 2 V [facility] RV Pacing Polarity BI [facility] God[facility] RV Pacing Pulse Width (ms) 0.4 ms [facility] Godfrey RV Sensing Amplitude (mvolts) 0.9 mV [facility] Godfrey RV Sensing Blanking Period (ms) 200 ms [facility] Godfrey RV Sensing Polarity BI [facility] Hysteresis Rate (bpm) DISABLED [facility] Lead1 Mfg MDT [facility] Lead2 Mfg MDT [facility] Location RV [facility] Location RA [facility] Lower Rate (bpm) 60 {beats}/min [facility] Max Sensor Rate (bmp) 130 {beats}/min [facility] Model [id number] COBOS [facility] PM-Device Mfg MDT [facility] PM-Percent Pacing (A) 99.67 % [facility] PM-Percent Pacing (V) 0.2 % [facility] PM-PMT Intervention ENABLED [facility] PM-PVC Intervention ENABLED [facility] PM-Rate Modulation Acceleration Reaction 30 s [facility] PM-Rate Modulation ADL Rate (bpm) 100 {beats}/min [facility] PM-Rate Modulation Deceleration Exercise [facility] PM-Rate Modulation Threshold MediumLow [facility] RA Bipolar Impedance ohms 418 ohm [facility] RA Unipolar Impedance ohms 380 ohm [facility] RV Bipolar Impedance ohms 532 ohm [facility] RV Unipolar Impedance 494 ohm [facility] Serial Number [id number] [facility] Serial Number [id number] [facility] Serial Number [id number] [facility] Thresh RA Capture Amplitude (volts) 0.5 V [facility] Thresh RA Capture Duration (ms) 0.4 ms [facility] Thresh RA Sensing Amplitude (mvolts) 2.25 mV [facility] Thresh RV Capture Amplitude (volts) 0.875 V [facility] Thresh RV Capture Duration (ms) 0.4 ms [facility] Thresh RV Sensing Amplitude (mvolts) 12.875 mV [facility] Tracking Rate (bpm) 130 {beats}/min [facility] No Panel Informationon 11-26 BLANK _ [facility] Implant Date 05/22/2015 [facility] Model 5076 [employer] [facility] PACEMAKER REMOTE CHECKon AV Delay Adaptive Paced Minimum (ms) 180 ms [facility] AV Delay Adaptive Sensed Minimum (ms) 150 ms [facility] AV Delay Adaptive Status DISABLED [facility] Battery Voltage (volts) 2.96 V [facility] Godfrey RA Pacing Amplitude (volts) 1.5 V [facility] Godfrey RA Pacing Polarity BI [facility] Godfrey RA Pacing Pulse Width (ms) 0.4 ms [facility] Godfrey RA Sensing Amplitude (mvolts) 0.3 mV [facility] Godfrey RA Sensing Blanking Period (ms) 150 ms [facility] Godfrey RA Sensing Polarity BI [facility]frey RA Sensing Refractory Period (ms) Auto [facility] Godfrey RV Pacing Amplitude (volts) 2 V [facility] Godfrey RV Pacing Polarity BI [facility] Godfrey RV Pacing Pulse Width (ms) 0.4 ms [facility] Godfrey RV Sensing Amplitude (mvolts) 0.9 mV [facility] Godfrey RV Sensing Blanking Period (ms) 200 ms [facility] Godfrey RV Sensing Polarity BI [facility] Hysteresis Rate (bpm) DISABLED [facility] Lead1 Jorge PAULT [facility] Lead2 Jorge KELLER [facility] Location RV [facility] Location RA [facility] Lower Rate (bpm) 60 {beats}/min [facility] Max Sensor Rate (bmp) 130 {beats}/min [facility] Model [id number] COBOS [facility] PM-Device Jorge KELLER [facility] PM-Percent Pacing (A) 99.43 % [facility] PM-Percent Pacing (V) 0.17 % [facility] PM-PMT Intervention ENABLED [facility] PM-PVC Intervention ENABLED [facility] PM-Rate Modulation Acceleration Reaction 30 s [facility] PM-Rate Modulation ADL Rate (bpm) 100 {beats}/min [facility] PM-Rate Modulation Deceleration Exercise [facility] PM-Rate Modulation Threshold MediumLow [facility] RA Bipolar Impedance ohms 437 ohm [facility] RA Unipolar Impedance ohms 399 ohm [facility] RV Bipolar Impedance ohms 532 ohm [facility] RV Unipolar Impedance 494 ohm [facility] Serial Number [id number] [facility] Serial Number [id number] [facility] Serial Number [id number] [facility] Thresh RA Capture Amplitude (volts) 0.5 V [facility] Thresh RA Capture Duration (ms) 0.4 ms [facility] Thresh RA Sensing Amplitude (mvolts) 1.875 mV [facility] Thresh RV Capture Amplitude (volts) 0.75 V [facility] Thresh RV Capture Duration (ms) 0.4 ms [facility] Thresh RV Sensing Amplitude (mvolts) 11.75 mV [facility] Tracking Rate (bpm) 130 {beats}/min [facility] No Panel Informationon 08-26 BLANK _ [facility] Implant Date 05/22/2015 [facility] Model 5076 [employer] [facility] PACEMAKER REMOTE CHECKon AV Delay Adaptive Paced Minimum (ms) 180 ms [facility] AV Delay Adaptive Sensed Minimum (ms) 150 ms [facility] AV Delay Adaptive Status DISABLED [facility] Battery Voltage (volts) 2.96 V [facility] Godfrey RA Pacing Amplitude (volts) 1.5 V [facility] Godfrey RA Pacing Polarity BI [facility] Godfrey RA Pacing Pulse Width (ms) 0.4 ms [facility] Godfrey RA Sensing Amplitude (mvolts) 0.3 mV [facility] Godfrey RA Sensing Blanking Period (ms) 150 ms [facility] Godfrey RA Sensing Polarity BI [facility] Godfrey RA Sensing Refractory Period (ms) Auto [facility] Godfrey RV Pacing Amplitude (volts) 2 V [facility] Godfrey RV Pacing Polarity BI [facility] Godfrey RV Pacing Pulse Width (ms) 0.4 ms [facility] Godfrey RV Sensing Amplitude (mvolts) 0.9 mV [facility] Godfrey RV Sensing Blanking Period (ms) 200 ms [facility] Godfrey RV Sensing Polarity BI [facility] Hysteresis Rate (bpm) DISABLED [facility] Lead1 Mfg MDT [facility] Lead2 Mfg MDT [facility] Location RV [facility] Location RA [facility] Lower Rate (bpm) 60 {beats}/min [facility] Max Sensor Rate (bmp) 130 {beats}/min [facility] Model [id number] COBOS [facility] PM-Device Mfg MDT [facility] PM-Percent Pacing (A) 99.6 % [facility] PM-Percent Pacing (V) 0.24 % [facility] PM-PMT Intervention ENABLED [facility] PM-PVC Intervention ENABLED [facility] PM-Rate Modulation Acceleration Reaction 30 s [facility] PM-Rate Modulation ADL Rate (bpm) 100 {beats}/min [facility] PM-Rate Modulation Deceleration Exercise [facility] PM-Rate Modulation Threshold MediumLow [facility] RA Bipolar Impedance ohms 437 ohm [facility] RA Unipolar Impedance ohms 399 ohm [facility] RV Bipolar Impedance ohms 532 ohm [facility] RV Unipolar Impedance 494 ohm [facility] Serial Number [id number] [facility] Serial Number [id number] [facility] Serial Number [id number] [facility] Thresh RA Capture Amplitude (volts) 0.5 V [facility] Thresh RA Capture Duration (ms) 0.4 ms [facility] Thresh RA Sensing Amplitude (mvolts) 2.5 mV [facility] Thresh RV Capture Amplitude (volts) 0.75 V [facility] Thresh RV Capture Duration (ms) 0.4 ms [facility] Thresh RV Sensing Amplitude (mvolts) 12.125 mV [facility] Tracking Rate (bpm) 130 {beats}/min [facility] US KIDNEYS BLADDERon 26-2 022 [facility] EXAMINATION: [facility] HISTORY: Chronic kidney disease due to [...] renal cortical atrophy Electronically authenticated by: EBEN BABCOCK Date: 2022-08-10 19:30 Normal [facility] UA RANDOM W/MICROSCOPICon BACTERIA NONE SEEN Normal NONE SEEN [facility] Comment on above: Performed By: #### U AMIC #### [facility] [address] [place] [address] Dr. Leah Felipe Bilirubin Ql (U) Negative Normal NEGATIVE [facility] Comment on above: Performed By: #### U AMIC #### [facility] [address] [place] [address] Dr. Leah Felipe CAST NONE SEEN Normal NONE SEEN [facility] Comment on above: Performed By: #### U AMIC #### [facility] [address] [place] [address] Dr. Leah Felipe Clarity (U) CLEAR Normal CLEAR [facility] Comment on above: Performed By: #### U AMIC #### [facility] [address] [place] [address] Dr. Leah Felipe Color (U) LT. YELLOW Normal YELLOW [facility] Comment on above: Performed By: #### U AMIC #### [facility] [address] [place] [address] Dr. Leah Felipe Crystals LM Nom (Urine sed) NONE SEEN Normal NONE SEEN [facility] Comment on above: Performed By: #### U AMIC #### [facility] [address] [place] [address] Dr. Leah Felipe Epithelial cells LM Ql (Urine sed) FEW Abnormal NONE SEEN /RARE [facility] Comment on above: Performed By: #### U AMIC #### [facility] [address] [place] [address] Dr. Leah Felipe Glucose Ql (U) Negative Normal NEGATIVE [facility] Comment on above: Performed By: #### U AMIC #### [facility] [address] [place] [address] Dr. Leah Felipe Hemoglobin Ql (U) Negative Normal NEGATIVE [facility] Comment on above: Performed By: #### U AMIC #### [facility] [address] [address] [address] Leah Felipe Ketones Ql (U) Negative Normal NEGATIVE [facility] Comment on above: Performed By: #### U AMIC #### [facility] [address] [address] [address] Leah Felipe LEUKOCYTES Negative Normal NEGATIVE [facility] Comment on above: Performed By: #### U AMIC #### [facility] [address] [address] [address] Leah Felipe MUCOUS NONE SEEN Normal NONE SEEN [facility] Comment on above: Performed By: #### U AMIC #### [facility] [address] [place] [address] Dr. Leah Felipe Nitrite Ql (U) Negative Normal NEGATIVE [facility] Comment on above: Performed By: #### U AMIC #### [facility] [address] [address] [address] Leah Felipe pH (U) 6.0 [pH] Normal 5-9 [facility] Comment on above: Performed By: #### U AMIC #### [facility] [address] [address] [address] Leah Felipe RBC NONE SEEN Abnormal 0-2 [facility] Comment on above: Performed By: #### U AMIC #### [facility] [address] [place] [address] Dr. Leah Felipe SPEC GRAVITY 1.025 Normal 1.005-<=1. 025 [facility] Comment on above: Performed By: #### U AMIC #### [facility] [address] [address] [address] Leah Felipe UA PROTEIN Negative Normal NEGATIVE/ TRACE [facility] Comment on above: Performed By: #### U AMIC #### [facility] [address] [place] [address] Dr. Leah Felipe Urobilinogen Qn (U) 0.2 {Lin'U}/dL Normal 0.2 - 1. 0 [facility] Comment on above: Performed By: #### U AMIC #### [facility] [address] [address] [address] Leah Felipe WBC 0-2 Abnormal NONE SEEN [facility] Comment on above: Performed By: #### U AMIC #### [facility] [address] [place] [address] Dr. Leah Felipe URINE T PROTEIN CREAT RATIOo n 08-03-2022 Protein (U) [Mass/Vol] 30.2 mg/dL Critically high <=12.0 [facility] Comment on above: Performed By: #### U RTPCR #### [facility] [address] [place] [address] Dr. Leah Felipe UR PROT CREAT RAT 0.19 Normal [facility] Comment on above: Performed By: #### U RTPCR #### [facility] [address] [place] [address] Dr. Leah Felipe URINE CREAT 159.67 mg/dL Normal 20.00-300. 00 [facility] Comment on above: Performed By: #### U RTPCR #### [facility] [address] [place] [address] Dr. Leah Felipe CBC AUTO DIFFon 07-31-2022 BASO # 0.0 103/ul Normal 0.0-0.1 [facility] Comment on above: Performed By: #### C BC #### [facility] [address] [place] [address] Dr. Leah Felipe Basophils/100 WBC (Bld) 0.6 % Normal 0.2-2.0 [facility] Comment on above: Performed By: #### C BC #### [facility] [address] [place] [address] Dr. Leah Felipe EO # 0.3 103/ul Normal 0.0-0.7 [facility] Comment on above: Performed By: #### C BC #### [facility] [address] [place] [address] Dr. Leah Felipe Eosinophils/100 WBC (Bld) 5.5 % Normal 0.9-7.0 [facility] Comment on above: Performed By: #### C BC #### [facility] [address] [place] [address] Dr. Leah Felipe Erythrocyte distribution width (RBC) [Ratio] 12.5 % Normal 11.0-15.0 [facility] Comment on above: Performed By: #### C BC #### [facility] [address] [place] [address] Dr. Leah Felipe Hematocrit (Bld) [Volume fraction] 39.2 % Normal 36.0-48.0 [facility] Comment on above: Performed By: #### C BC #### [facility] [address] [place] [address] Dr. Leah Felipe Hemoglobin (Bld) [Mass/Vol] 12.5 g/dL Normal 12.0-16.0 [facility] Comment on above: Performed By: #### C BC #### [facility] [address] [place] [address] Dr. Leah Felipe IG # 0.01 10e3/ul Normal 0.00-0.03 [facility] Comment on above: Performed By: #### C BC #### [facility] [address] [place] [address] Dr. Leah Felipe IG % 0.2 % Normal 0.0-0.5 [facility] Comment on above: Performed By: #### C BC #### [facility] [address] [place] [address] Dr. Leah Felipe LYMPH # 0.8 103/ul Critically low 1.2-3.8 [facility] Comment on above: Performed By: #### C BC #### [facility] [address] [place] [address] Dr. Leah Felipe Lymphocytes/100 WBC (Bld) 16.0 % Critically low 20.5-60.0 [facility] Comment on above: Performed By: #### C BC #### [facility] [address] [place] [address] Dr. Leah Felipe MANUAL DIFF REQ NO Normal [facility] Comment on above: Performed By: #### C BC #### [facility] [address] [place] [address] Dr. Leah Felipe MCH (RBC) [Entitic mass] 30.9 pg Normal 26.7-34.0 [facility] Comment on above: Performed By: #### C BC #### [facility] [address] [place] [address] Dr. Leah Felipe MCHC (RBC) [Mass/Vol] 31.9 g/dL Normal 29.9-35.2 [facility] Comment on above: Performed By: #### C BC #### [facility] [address] [place] [address] Dr. Leah Felipe MCV (RBC) [Entitic vol] 97.0 fL Normal 81.0-99.0 [facility] Comment on above: Performed By: #### C BC #### [facility] [address] [place] [address] Dr. Leah Felipe MONO # 0.4 103/ul Normal 0.3-0.8 [facility] Comment on above: Performed By: #### C BC #### [facility] [address] [place] [address] Dr. Leah Felipe Monocytes/100 WBC (Bld) 8.7 % Normal 1.7-12.0 [facility] Comment on above: Performed By: #### C BC #### [facility] [address] [place] [address] Dr. Leah Felipe NEUT # 3.4 103/ul Normal 1.4-6.5 [facility] Comment on above: Performed By: #### C BC #### [facility] [address] [place] [address] Dr. Leah Felipe Neutrophils/100 WBC (Bld) 69.0 % Normal 43.0-75.0 [facility] Comment on above: Performed By: #### C BC #### [facility] [address] [place] [address] Dr. Leah Felipe Platelet mean volume (Bld) [Entitic vol] 9.1 fL Critically low 9.5-13.5 [facility] Comment on above: Performed By: #### C BC #### [facility] [address] [address] [address] Leah Felipe PLT 196 103/ul Normal 150-450 [facility] Comment on above: Performed By: #### C BC #### [facility] [address] [address] [address] Leah Felipe RBC 4.04 106/ul Critically low 4.20-5.40 [facility] Comment on above: Performed By: #### C BC #### [facility] [address] [place] [address] Dr. Leah Felipe WBC 5.0 103/ul Normal 4.0-11.0 [facility] Comment on above: Performed By: #### C BC #### [facility] [address] [place] [address] Dr. Leah Felipe PROF CHEM 8 (BAS METB)on Anion gap [Moles/Vol] 9.8 mmol/L Normal [facility] Comment on above: Performed By: #### B MP, TSH #### [facility] [address] [place] [address] Dr. Leah Felipe Calcium [Mass/Vol] 8.2 mg/dL Critically low 8.5-10.1 [facility] Comment on above: Performed By: #### B MP, TSH #### [facility] [address] [place] [address] Dr. Leah Felipe Chloride [Moles/Vol] 107 mmol/L Normal 98-107 [facility] Comment on above: Performed By: #### B MP, TSH #### [facility] [address] [place] [address] Dr. Leah Felipe CO2 [Moles/Vol] 26.4 mmol/L Normal 21.0-32.0 [facility] Comment on above: Performed By: #### B MP, TSH #### [facility] [address] [place] [address] Dr. Leah Felipe Creatinine [Mass/Vol] 1.53 mg/dL Critically high 0.55-1.02 [facility] Comment on above: Performed By: #### B MP, TSH #### [facility] [address] [address] [address] Leah Felipe EGFR-AF LATVIAN 40 mL/min/1.73m2 Critically low >=60 [facility] Comment on above: Performed By: #### B MP, TSH #### [facility] [address] [address] [address] Leah Felipe EGFR-NON AF LATVIAN 33 mL/min/1.73m2 Critically low >=60 [facility] Comment on above: Performed By: #### B MP, TSH #### [facility] [address] [address] [address] Leah Felipe Glucose [Mass/Vol] 108 mg/dL Critically high 74-106 [facility] Comment on above: Performed By: #### B MP, TSH #### [facility] [address] [address] [address] Leah Felipe Potassium [Moles/Vol] 4.2 mmol/L Normal 3.5-5.1 [facility] Comment on above: Performed By: #### B MP, TSH #### [facility] [address] [address] [address] Leah Felipe Sodium [Moles/Vol] 139 mmol/L Normal 136-145 [facility] Comment on above: Performed By: #### B MP, TSH #### [facility] [address] [address] [address] Leah Felipe Urea nitrogen [Mass/Vol] 26.0 mg/dL Critically high 7.0-18.0 [facility] Comment on above: Performed By: #### B MP, TSH #### [facility] [address] [address] [address] Leah Felipe Urea nitrogen/Creatinine [Mass ratio] 17.0 mg/mg Normal [facility] Comment on above: Performed By: #### B MP, TSH #### [facility] [address] [address] [address] Leah Felipe TSHon 07-31-2022 TSH 1.650 uIU/mL Normal 0.358-3.74 0 [facility] Comment on above: Performed By: #### B MP, TSH #### [facility] [address] [place], [place] [address] Dr. Leah Felipe VITAMIN B12on 07-31-2022 Cobalamin (Vitamin B12) [Mass/Vol] 378.0 pg/mL Normal 193.0-986. 0 [facility] Comment on above: Performed By: #### V ITB12 #### [facility] [address] [place], [place] [address] Dr. Leah Felipe MG MAMM SCREEN 3D FAVIOLA CADon 07-29-2022 MG MAMM SCREEN 3D FAVIOLA CAD Patient: CASSI RODRIGEZ Exam Date: 07/29/2022 : 1950 Gender:F Ordering : DR BRODERICK HOWARD D.O. Admission #: [id number] Family : Order #: [id number] CLICK HERE TO VIEW EXAM RADIOLOGY REPORT [...] pancreatic cancer at age 64. LOCATION: [facility] BREAST COMPOSITION: Heterogeneously dense,which may obscure small [...] LUMP SHOULD BE BIOPSIED. Dictated by: Eben Babcock MD on 07/29/2022 at 11:18 Approved by: Eben Babcock MD on 07/29/2022 at 11:19 Normal [facility] CBC panel Auto (Bld)on 07-23 Erythrocyte distribution width (RBC) [Ratio] 12.5 % Normal 11.5-15.0 [facility] Comment on above: Order Comment: Speci men Type: BLOOD SPECIMEN Ordering Facility: [facility] Address: [address] [place], [place] [id number] Performed By: #### 5 8410-2 #### [facility] [place] [id number] [facility] Hematocrit (Bld) [Volume fraction] 39.3 % Normal 36.0-46.0 [facility] Comment on above: Order Comment: Speci men Type: BLOOD SPECIMEN Ordering Facility: [facility] Address: [address] [place] [address] Performed By: #### 5 8410-2 #### [facility] [place] [id number] [address] [place] [address] [place] Hemoglobin (Bld) [Mass/Vol] 12.5 g/dL Normal 11.5-15.5 [facility] Comment on above: Order Comment: Speci men Type: BLOOD SPECIMEN Ordering Facility: [facility] Address: [address] [place] [address] Performed By: #### 5 8410-2 #### [facility] [place] [id number] [address] [place] [address] [place] MCH (RBC) [Entitic mass] 31.3 pg Normal 26.0-34.0 [facility] Comment on above: Order Comment: Speci men Type: BLOOD SPECIMEN Ordering Facility: [facility] Address: [address] [place], [place] [id number] Performed By: #### 5 8410-2 #### [facility] [place] [id number] [address] [place] [address] [place] MCHC (RBC) [Mass/Vol] 31.8 g/dL Normal 30.5-36.0 [facility] Comment on above: Order Comment: Speci men Type: BLOOD SPECIMEN Ordering Facility: [facility] Address: [address] [place], [place] [id number] Performed By: #### 5 8410-2 #### [facility] IA [id number] [address] [place] [address] [place] MCV (RBC) [Entitic vol] 98.5 fL Normal 80.0-100.0 [facility] Comment on above: Order Comment: Speci men Type: BLOOD SPECIMEN Ordering Facility: [facility] Address: [address] [place], [place] [id number] Performed By: #### 5 8410-2 #### [facility] IA [id number] [address] [place], [place] [id number] [place] [address] [place] Nucleated RBC (Bld) [#/Vol] 10*3/uL Normal <0.01 [facility] Comment on above: Order Comment: Speci men Type: BLOOD SPECIMEN Ordering Facility: [facility] Address: [address] [place] [address] Performed By: #### 5 8410-2 #### [facility] IA [id number] [place] [address] [place] Platelet mean volume (Bld) [Entitic vol] 9.5 fL Normal 9.0-12.7 [facility] Comment on above: Order Comment: Speci men Type: BLOOD SPECIMEN Ordering Facility: [facility] Address: [address] [place] [address] Performed By: #### 5 8410-2 #### [facility] IA [id number] [address] [place] [address] [place] Platelets (Bld) [#/Vol] 214 10*3/uL Normal 150-400 [facility] Comment on above: Order Comment: Speci men Type: BLOOD SPECIMEN Ordering Facility: [facility] Address: [address] [place], [place] [id number] Performed By: #### 5 8410-2 #### [facility] IA [id number] [address] [place] [address] [place] RBC (Bld) [#/Vol] 3.99 10*6/uL Normal 3.90-5.20 [facility] Comment on above: Order Comment: Speci men Type: BLOOD SPECIMEN Ordering Facility: [facility] Address: [address] [place], [place] [address] Performed By: #### 5 8410-2 #### [facility] CLIA [id number] OF [facility] WBC (Bld) [#/Vol] 5.85 10*3/uL Normal 3.70-11.00 [facility] Comment on above: Order Comment: Speci men Type: BLOOD SPECIMEN Ordering Facility: [facility] Address: [address] [place] [address] Performed By: #### 5 8410-2 #### [facility] CLIA [id number] STATES OF [facility] Erythrocyte distribution width (RBC) [Ratio] 12.5 % 11.5 - 15.0 % [facility] Hematocrit (Bld) [Volume fraction] 39.3 % 36.0 - 46.0 % [facility] Hemoglobin (Bld) [Mass/Vol] 12.5 g/dL 11.5 - 15.5 g/dL [facility] MCH (RBC) [Entitic mass] 31.3 pg 26.0 - 34.0 pg [facility] MCHC (RBC) [Mass/Vol] 31.8 g/dL 30.5 - 36.0 g/dL [facility] MCV (RBC) [Entitic vol] 98.5 fL 80.0 - 100.0 fL [facility] Nucleated RBC (Bld) [#/Vol] <0.01 k/uL [facility] Platelet mean volume (Bld) [Entitic vol] 9.5 fL 9.0 - 12.7 fL [facility] Platelets (Bld) [#/Vol] 214 10*3/uL 150 - 400 k/uL [facility] RBC (Bld) [#/Vol] 3.99 10*6/uL 3.90 - 5.20 m/uL [facility] WBC (Bld) [#/Vol] 5.85 10*3/uL 3.70 - 11.00 k/uL [facility] TSH BLDon 07-23-2022 TSH Qn 1.890 m[IU]/L 0.270 - 4.200 mIU/L [facility] TSH SerPl-aCncon 07-23-2022 TSH Qn 1.890 m[IU]/L Normal 0.270-4.[address] [facility] Comment on above: Order Comment: Speci men Type: BLOOD SPECIMEN Ordering Facility: [facility] Address: [address] [place] [address] [place] [address] Performed By: #### 3 016-3 #### [facility] CLIA [id number] [address] [address] [facility] Vital Signs Date Time Vital Sign Value Performing Clinician Facility 04-21-2024 10:00-0400 Body height 157.48 cm DO Broderick Ball Work Phone: [facility] 04-21-2024 10:00-0400 Body mass index (BMI) [Ratio] 34.5 kg/m2 DO Broderick Ball Work Phone: [facility] 04-21-2024 10:00-0400 Body weight 85.72 kg DO Broderick Ball Work Phone: [facility] 03-29-2024 13:34-0400 Body height 157.48 cm DO Broderick Ball Work Phone: [facility] 03-29-2024 13:34-0400 Body mass index (BMI) [Ratio] 33.3 kg/m2 DO Broderick Ball Work Phone: [facility] 03-29-2024 13:34-0400 Body weight 82.78 kg DO Broderick Ball Work Phone: [facility] 03-29-2024 13:34-0400 Diastolic blood pressure 77 mm[Hg] DO Broderick Ball Work Phone: [facility] 03-29-2024 13:34-0400 Heart rate 73 /min DO Broderick Ball Work Phone: [facility] 03-29-2024 13:34-0400 Respiratory rate 12 /min DO Broderick Ball Work Phone: [facility] 03-29-2024 13:34-0400 Systolic blood pressure 124 mm[Hg] DO Broderick Ball Work Phone: [facility] 03-27-2024 11:25-0400 Body height 157.48 cm DO Borderick Ball Work Phone: [facility] 03-27-2024 11:25-0400 Body weight 84.36 kg DO Broderick Ball Work Phone: [facility] 03-07-2024 08:53-0400 Body height 157.5 cm Randa Reilly MD Work Phone: [facility] 03-07-2024 08:53-0400 Body mass index (BMI) [Ratio] 34.06 kg/m2 Randa Reilly MD Work Phone: [facility] 03-07-2024 08:53-0400 Body weight 84.46 kg Randa Reilly MD Work Phone: [facility] 03-07-2024 08:53-0400 Diastolic blood pressure 72 mm[Hg] Randa Reilly MD Work Phone: [facility] 03-07-2024 08:53-0400 Heart rate 85 /min Randa Reilly MD Work Phone: [facility] 03-07-2024 08:53-0400 Systolic blood pressure 133 mm[Hg] Randa Reilly MD Work Phone: [facility] 02-09-2024 14:58-0400 Body height 161.29 cm [facility] 02-09-2024 14:58-0400 Body mass index (BMI) [Ratio] 33.5 kg/m2 [facility] 02-09-2024 14:58-0400 Body weight 87.08 kg [facility] 02-09-2024 14:58-0400 Diastolic blood pressure 71 mm[Hg] [facility] 02-09-2024 14:58-0400 Heart rate 78 /min [facility] 02-09-2024 14:58-0400 Respiratory rate 12 /min [facility] 02-09-2024 14:58-0400 Systolic blood pressure 114 mm[Hg] [facility] 12-23-2023 09:02-0500 Body height 157.5 cm Alejandro Villar MD, PhD Work Phone: [facility] 12-23-2023 09:02-0500 Body temperature 97.59 [degF] Alejandro Villar MD, PhD Work Phone: [facility] 12-23-2023 09:02-0500 Body weight 86.64 kg Alejandro Villar MD, PhD Work Phone: [facility] 12-23-2023 09:02-0500 Diastolic blood pressure 72 mm[Hg] Alejandro Villar MD, PhD Work Phone: [facility] 12-23-2023 09:02-0500 Heart rate 85 /min Alejandro Villar MD, PhD Work Phone: [facility] 12-23-2023 09:02-0500 SaO2% (BldA) [Mass fraction] 100 % Alejandro Villar MD, PhD Work Phone: [facility] 12-23-2023 09:02-0500 Systolic blood pressure 133 mm[Hg] Alejandro Villar MD, PhD Work Phone: [facility] 09-08-2023 14:50-0400 Body height 157.5 cm Mirian Bell [employer]REL SCRAPER.OTR DRIVER Work Phone: [facility] 09-08-2023 14:50-0400 Body weight 86.5 kg Mirian Bell BARREL SCRAPER.OTR DRIVER Work Phone: [facility] 09-08-2023 14:50-0400 Diastolic blood pressure 64 mm[Hg] Mirian Bell BARREL SCRAPER.OTR DRIVER Work Phone: [facility] 09-08-2023 14:50-0400 Heart rate 62 /min Mirian Bell BARREL SCRAPER.OTR DRIVER Work Phone: [facility] 09-08-2023 14:50-0400 Systolic blood pressure 130 mm[Hg] Mirian Bell APRYfnOTR DRIVER Work Phone: [facility] 08-25-2023 10:20-0400 Body height 161.29 cm Niki Blades Other [facility] Other 08-25-2023 10:20-0400 Body mass index (BMI) [Ratio] 34.35 kg/m2 Niki Blades Other [facility] Other 08-25-2023 10:20-0400 Body weight 89.36 kg Niki Blades Other [facility] Other 08-16-2023 10:00-0400 Body height 161.29 cm Niki Blades Other [facility] Other 08-16-2023 10:00-0400 Body mass index (BMI) [Ratio] 34.35 kg/m2 Niki Blades Other [facility] Other 08-16-2023 10:00-0400 Body weight 89.36 kg Niki Blades Other [facility] Other 08-05-2023 07:21-0400 Body temperature 97.8 [degF] DO Broderick Ball Work Phone: [facility] 08-05-2023 07:21-0400 Diastolic blood pressure 73 mm[Hg] DO Broderick Ball Work Phone: [facility] 08-05-2023 07:21-0400 Heart rate 63 /min DO Broderick Ball Work Phone: [facility] 08-05-2023 07:21-0400 Respiratory rate 14 /min DO Broderick Ball Work Phone: [facility] 08-05-2023 07:21-0400 SaO2% (BldA) [Mass fraction] 97 % DO Broderick Ball Work Phone: [facility] 08-05-2023 07:21-0400 Systolic blood pressure 117 mm[Hg] DO Broderick Ball Work Phone: [facility] 08-05-2023 06:00-0400 Body weight 96.7 kg DO Broderick Ball Work Phone: [facility] 08-04-2023 00:00-0400 Inhaled oxygen flow rate 3 L/min DO Broderick Ball Work Phone: [facility] 08-03-2023 07:02-0400 Body height 157.48 cm DO Broderick Ball Work Phone: [facility] 08-03-2023 07:02-0400 Body mass index (BMI) [Ratio] 35 kg/m2 DO Broderick Ball Work Phone: [facility] 07-07-2023 14:20-0400 Body height 161.29 cm Niki Blades Other [facility] Other 07-07-2023 14:20-0400 Body mass index (BMI) [Ratio] 33.65 kg/m2 Niki Blades Other [facility] Other 07-07-2023 14:20-0400 Body weight 87.54 kg Niki Blades Other [facility] Other 07-07-2023 14:20-0400 Diastolic blood pressure 80 mm[Hg] Niki Blades Other [facility] Other 07-07-2023 14:20-0400 Systolic blood pressure 142 mm[Hg] Niki Blades Other [facility] Other 06-04-2023 08:42-0400 Body height 162.56 cm DO Broderick Ball Work Phone: [facility] 06-04-2023 08:42-0400 Body weight 87.08 kg DO Broderick Ball Work Phone: [facility] 05-06-2023 14:30-0400 Body height 161.29 cm Bertram Tommy Other [facility] Other 05-06-2023 14:30-0400 Body mass index (BMI) [Ratio] 33.3 kg/m2 Bertram Shannony Other [facility] Other 05-06-2023 14:30-0400 Body weight 86.64 kg Bertram Ditty Other [facility] Other 05-06-2023 14:30-0400 Diastolic blood pressure 70 mm[Hg] Bertram Janatty Other [facility] Other 05-06-2023 14:30-0400 Systolic blood pressure 125 mm[Hg] Bertram Ditty Other [facility] Other 05-03-2023 14:30-0400 Body height 161.29 cm Broderick Ball Other [facility] Other 05-03-2023 14:30-0400 Body mass index (BMI) [Ratio] 33.16 kg/m2 Broderick Ball Other [facility] Other 05-03-2023 14:30-0400 Body weight 86.27 kg Broderick Ball Other [facility] Other 05-03-2023 14:30-0400 Diastolic blood pressure 71 mm[Hg] Broderick Ball Other [facility] Other 05-03-2023 14:30-0400 Respiratory rate 12 /min Broderick Ball Other [facility] Other 05-03-2023 14:30-0400 Systolic blood pressure 120 mm[Hg] Broderick Ball Other [facility] Other 03-25-2023 11:00-0400 Body height 161.29 cm Broderick Ball Other [facility] Other 03-25-2023 11:00-0400 Body mass index (BMI) [Ratio] 33.61 kg/m2 Broderick Ball Other [facility] Other 03-25-2023 11:00-0400 Body weight 87.45 kg Broderick Ball Other [facility] Other 03-25-2023 11:00-0400 Diastolic blood pressure 78 mm[Hg] Broderick Ball Other [facility] Other 03-25-2023 11:00-0400 Respiratory rate 12 /min Broderick Ball Other [facility] Other 03-25-2023 11:00-0400 Systolic blood pressure 135 mm[Hg] Broderick Ball Other [facility] Other 01-07-2023 14:15-0500 Body height 161.29 cm Bertram Sanders Other [facility] Other 01-07-2023 14:15-0500 Body mass index (BMI) [Ratio] 32.25 kg/m2 Bertram Sanders Other [facility] Other 01-07-2023 14:15-0500 Body weight 83.92 kg Bertram Sanders Other [facility] Other 01-07-2023 14:15-0500 Diastolic blood pressure 85 mm[Hg] Bertram Sanders Other [facility] Other 01-07-2023 14:15-0500 Systolic blood pressure 155 mm[Hg] Bertram Sanders Other [facility] Other 11-25-2022 11:00-0500 Body height 161.29 cm Broderick Ball Other [facility] Other 11-25-2022 11:00-0500 Body mass index (BMI) [Ratio] 32.25 kg/m2 Broderick Ball Other [facility] Other 11-25-2022 11:00-0500 Body weight 83.92 kg Broderick Ball Other [facility] Other 11-25-2022 11:00-0500 Diastolic blood pressure 78 mm[Hg] Broderick Ball Other [facility] Other 11-25-2022 11:00-0500 Respiratory rate 12 /min Broderick Ball Other [facility] Other 11-25-2022 11:00-0500 Systolic blood pressure 118 mm[Hg] Broderick Ball Other [facility] Other 09-10-2022 13:48-0400 Body height 157.5 cm Alejandro Villar MD, PhD Work Phone: [facility] 09-10-2022 13:48-0400 Body weight 88.27 kg Alejandro Villar MD, PhD Work Phone: [facility] 09-10-2022 13:48-0400 Diastolic blood pressure 86 mm[Hg] Alejandro Villar MD, PhD Work Phone: [facility] 09-10-2022 13:48-0400 Heart rate 76 /min Alejandro Villar MD, PhD Work Phone: [facility] 09-10-2022 13:48-0400 Systolic blood pressure 148 mm[Hg] Alejandro Villar MD, PhD Work Phone: [facility] 07-23-2022 10:09-0400 Body height 160 cm Kitty Vidal MD Work Phone: [facility] 07-23-2022 10:09-0400 Body weight 88 kg Kitty Vidal MD Work Phone: [facility] 07-23-2022 10:09-0400 Diastolic blood pressure 66 mm[Hg] Kitty Vidal MD Work Phone: [facility] 07-23-2022 10:09-0400 Heart rate 63 /min Kitty Vidal MD Work Phone: [facility] 07-23-2022 10:09-0400 Systolic blood pressure 136 mm[Hg] Kitty Vidal MD Work Phone: [facility] 01-06-2022 11:30-0500 Body height 161.29 cm Bertram Sanders Other [facility] Other 01-06-2022 11:30-0500 Body mass index (BMI) [Ratio] 30.68 kg/m2 Bertram Sanders Other [facility] Other 01-06-2022 11:30-0500 Body weight 79.83 kg Bertram Sanders Other [facility] Other Encounters Encounter Date Encounter Type Care Provider Facility Start: 05-03-2024 End: 05-03-2024 ambulatory DAVID VILLANUEVA Not Available Start: 04-21-2024 End: 04-21-2024 ambulatory DO Broderick Ball Work Phone: [facility] Work Phone: Start: 04-21-2024 End: 04-21-2024 Patient encounter procedure DO Broderick Ball Work Phone: [facility] Work Phone: Start: 03-29-2024 End: 03-29-2024 Patient encounter procedure DO Broderick Ball Work Phone: [facility] Work Phone: Start: 03-28-2024 End: 03-28-2024 ambulatory Broderick Ball Facility:[facility] Start: 03-28-2024 End: 03-28-2024 Patient encounter procedure DO Broderick Ball Work Phone: [facility] [place] Work Phone: Start: 03-09-2024 End: 03-09-2024 ambulatory Broderick Ball Facility:[facility] Start: 03-09-2024 End: 03-09-2024 ambulatory DO Broderick Ball Work Phone: [facility] Work Phone: Start: 03-09-2024 End: 03-09-2024 Patient encounter procedure DO Broderick Ball Work Phone: [facility] Start: 03-08-2024 Follow-up encounter Kitty Vidal MD [facility] Start: 03-08-2024 Patient encounter procedure Kitty Vidal MD Work [facility] Start: 03-07-2024 End: 03-07-2024 ambulatory RANDA REILLY Facility:[facility] Start: 03-07-2024 End: 03-07-2024 Patient encounter procedure Randa Reilly MD Work Phone: Neurology Comment on above: Intractable 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 aura and without status migrainosus (Primary Dx); Cervicalgia; SHELL (obstructive sleep apnea) Start: 03-03-2024 Non-patient / Non-visit DO Miguel A Howard Work Phone: [facility] Work Phone: Start: 02-15-2024 Non-patient / Non-visit DO Miguel A Howard Work Phone: [facility] Work Phone: Start: 02-10-2024 Non-patient / Non-visit DO Miguel A Howard Work Phone: [facility] Work Phone: Start: 02-09-2024 End: 02-09-2024 ambulatory [facility] Work Phone: Start: 02-09-2024 End: 02-09-2024 Patient encounter procedure [facility] Work Phone: Start: 12-23-2023 End: 12-23-2023 ambulatory ALEJANDRO VILLAR Facility:[facility] Start: 12-23-2023 End: 12-23-2023 Patient encounter procedure Alejandro Villar MD, PhD Work Phone: Neurology Comment on above: Intractable 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); Cardiac pacemaker in situ; Bradycardia Start: 08-25-2023 End: 08-25-2023 ambulatory Niki Blades Other [facility] Other Start: 08-25-2023 Postop follow up vis it related to original px Niki Blades [facility] Start: 08-16-2023 End: 08-16-2023 ambulatory Niki Blades Other [employer] Other Start: 08-16-2023 Postop follow up vis it related to original px Niki Blades [facility] Start: 08-13-2023 End: 08-13-2023 ambulatory Broderick Howard Other [employer] Other Start: 08-13-2023 Telephone encounter Broderick Howard [facility] Start: 08-12-2023 Postop follow up vis it related to original px Niki Blades [facility] Start: 08-12-2023 End: 08-12-2023 ambulatory Niki A Blades [facility] [employer] Other Start: 08-03-2023 End: 08-05-2023 ambulatory Niki A Blades Facility:[facility] Start: 08-03-2023 End: 08-05-2023 Admission to same day surgery center DO Broderick Howard Work Phone: [facility] [place] Start: 08-03-2023 End: 08-05-2023 ambulatory DO Broderick Howard Work Phone: [facility] Work Phone: Start: 08-02-2023 End: 08-02-2023 ambulatory Broderick Howard Other [employer] Other Start: 08-02-2023 Telephone encounter Broderick Howard [facility] Start: 07-20-2023 End: 07-20-2023 ambulatory Niki A Blades Facility:[facility] Start: 07-20-2023 End: 07-20-2023 ambulatory DO Brodeirck Howard Work Phone: [facility] Work Phone: Start: 07-20-2023 End: 07-20-2023 Patient encounter procedure DO Broderick Howard Work Phone: [facility] Work Phone: Start: 07-09-2023 End: 07-09-2023 ambulatory Niki Blades Other [employer] Other Start: 07-09-2023 Telephone encounter Niki Blades [facility] Start: 07-07-2023 End: 07-07-2023 ambulatory Niki Blades Other [employer] Other Start: 07-07-2023 Office outpatient ne w 45 minutes Niki Blades [facility] Start: 06-08-2023 Follow-up encounter Kitty Vidal MD Work Phone: [facility] Start: 06-08-2023 Pacemaker Remote F/U Kitty Vidal MD Work Phone: [facility] Start: 06-04-2023 ambulatory Facility:[id number] Start: 06-04-2023 End: 06-04-2023 ambulatory Broderick Howard Facility:[facility] Start: 06-04-2023 End: 06-04-2023 ambulatory DO Broderick Howard Work Phone: [facility] Work Phone: Start: 06-04-2023 End: 06-04-2023 Patient encounter procedure DO Broderick Howard Work Phone: [facility] [place] Work Phone: Start: 05-14-2023 End: 05-14-2023 ambulatory Broderick Howard Facility:[id number] Start: 05-14-2023 End: 05-14-2023 ambulatory DO Broderick Howard Work Phone: [facility] Work Phone: Start: 05-14-2023 End: 05-14-2023 Patient encounter procedure DO Broderick Howard Work Phone: [facility] Start: 05-06-2023 End: 05-06-2023 ambulatory Bertram Sanders Other [facility] Other Start: 05-06-2023 Patient encounter procedure Bertram Sanders [facility] Start: 05-03-2023 End: 05-03-2023 ambulatory Broderick Howard Other [employer] Other Start: 05-03-2023 Office outpatient vi sit 15 minutes Broderick Howard [facility] Start: 05-03-2023 Telephone encounter Broderick SCHWARZ [facility] Start: 03-29-2023 End: 04-14-[address] BRODERICK HOWARD [facility] [employer] Other Start: 03-29-2023 Telephone encounter Broderick SCHWARZ [facility] Start: 03-25-2023 End: 03-25-2023 ambulatory Broderick Howard Other [employer] Other Start: 03-25-2023 Office outpatient vi sit 25 minutes Broderick Howard [facility] Start: 03-15-2023 End: 04-14-2023 ambulatory SHAIKH Guy CARRILLO Facility:[facility] Start: 02-24-2023 Follow-up encounter Kitty Vidal MD Work Phone: [facility] Start: 02-24-2023 Pacemaker Remote F/U Kitty Vidal MD Work Phone: [facility] Start: 02-15-2023 End: 03-12-2023 ambulatory AGUILAR H FAWWAD Facility:[facility] Start: 02-03-2023 End: 02-03-2023 ambulatory Bertram Janadavidtanisha Other [employer] Other Start: 02-03-2023 Telephone encounter Bertram Sanders [facility] Start: 01-13-2023 End: 02-12-2023 ambulatory AGUILAR H FAWWAD Facility:[facility] Start: 01-07-2023 End: 01-07-2023 ambulatory Bertram Sanders Other [employer] Other Start: 01-07-2023 Patient encounter procedure Bertram Sanders [facility] Start: 12-16-2022 End: 01-13-2023 ambulatory AGUILAR H FAWWAD Facility:[facility] Start: 11-25-2022 End: 11-25-2022 ambulatory Broderick Howard Other [employer] Other Start: 11-25-2022 Follow-up encounter Kitty Vidal MD Work Phone: [facility] Start: 11-25-2022 Office outpatient vi sit 25 minutes Broderick Howard [facility] Start: 11-25-2022 Pacemaker Remote F/U Kitty Vidal MD Work Phone: [facility] Start: 11-23-2022 Patient encounter procedure Broderick Howard Other [employer] Other Start: 11-16-2022 End: 12-16-2022 ambulatory AGUILAR Guy ARYANWWAD Facility:[facility] Start: 10-15-2022 Adult health examination Niki Blades Other [employer] Other Start: 10-15-2022 Gynecological examination normal Niki Blades Other [facility] Other Start: 10-15-2022 End: 11-15-2022 ambulatory SHAIKH Guy CARRILLO Facility:[facility] Start: 09-15-2022 End: 10-14-2022 ambulatory SHAIKH Guy CARRILLO Facility:[facility] Start: 09-10-2022 End: 09-10-2022 Patient encounter procedure Alejandro Villar MD, PhD Work Phone: Neurology Comment on above: 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, intractable (HCC) Start: 08-26-2022 Follow-up encounter Kitty Vidal MD Work Phone: [facility] Start: 08-26-2022 Pacemaker Remote F/U Kitty Vidal MD Work Phone: [facility] Start: 08-16-2022 End: 09-14-2022 ambulatory SHAIKH Guy CARRILLO Facility:[facility] Start: 08-10-2022 End: 08-11-[address] BRODERICK HOWARD Facility:[facility] Start: 08-03-2022 End: 08-04-[address] BRODERICK HOWARD Facility:[facility] Start: 07-31-2022 End: 08-01-[address] BRODERICK HOWARD Facility:[facility] Start: 07-29-2022 End: 07-30-[address] BRODERICK HOWARD Facility:[facility] Start: 07-23-2022 End: 07-23-2022 Patient encounter procedure Kitty Vidal MD Work Phone: Cardiology Comment on above: Chronic fatigue (Manuela hugo Dx) Start: 07-16-2022 End: 08-15-2022 ambulatory SHAIKH Guy CARRILLO Facility:[facility] Start: 06-15-2022 End: 07-15-2022 ambulatory SHAIKH Guy CARRILLO Facility:[facility] Start: 06-08-2022 End: 06-08-[address] BRODERICK HOWARD Facility:[facility] Start: 05-15-2022 End: 06-12-[address] BRODERICK HOWARD Facility:[facility] Start: 01-06-2022 End: 01-06-2022 ambulatory Bertram Sanders Other [facility] Other Start: 01-06-2022 Patient encounter procedure Bertram Sanders [facility] Gastroenterology Start: 10-14-2020 End: 10-14-2020 Pre-procedure evaluation check Niki Blades Other [employer] Other Procedures Date Procedure Procedure Detail Performing Clinician Start: 03-28-2024 MRI of lumbar spine with contrast DO Broderick Ball Work Phone: Start: 03-08-2024 PACEMAKER REMOTE CHECK Kitty Vidal MD Work Phone: Start: 09-08-2023 PACEMAKER CLINIC CHECK Kitty Vidal MD Work Phone: Start: 08-03-2023 Antibody screen Niki Blades Comment on above: Result Comment: PERF ORMED BY: [address] [place] [address] PATHOLOGIST MAST MAKER LELE FALK M.D. Start: 08-03-2023 Excision of lumbar intervertebral disc DO Broderick Ball Work Phone: Start: 08-03-2023 X-ray of lumbar spin e, single view DO Broderick Ball Work Phone: Start: 06-08-2023 PACEMAKER REMOTE CHECK Kitty Vidal MD Work Phone: Start: 06-04-2023 MRI of lumbar spine with contrast DO Broderick Ball Work Phone: Start: 06-04-2023 XR pre/post mri xray DO Broderick Ball Work Phone: Start: 02-24-2023 PACEMAKER REMOTE CHECK Kitty Vidal MD Work Phone: Start: 11-25-2022 PACEMAKER REMOTE CHECK Kitty Vidal MD Work Phone: Start: 08-26-2022 PACEMAKER REMOTE CHECK Kitty Vidal MD Work Phone: Start: 04-13-2019 Screening for malign ant neoplasm of colon Niki Weeks Other Start: 04-13-2019 Screening mammography D luis armando Weeks Other End: 01-25-2022 Depression screening Niki Weeks Other Plan of Treatment Date Care Activity Detail Author Start: 11-28-2024 DIABETES SCREEN DIABETES SCREEN [facility] Start: 11-28-2024 Diabetes Screening Diabetes Screenin g [facility] Start: 08-31-2024 End: 08-31-2024 Patient encounter procedure 08/31/2024 10:00 AM EDT Office Visit Cardiology [address] [place] [id number] [place] [address] [place], [place] [id number] return in about 1 year (around 09/08/2024) Cardiology Comment on above: return in about 1 ye ar (around 09/08/2024) Start: 06-29-2024 End: 06-29-2024 Patient encounter procedure 06/29/2024 1:00 PM EDT Office Visit Neurology [id number] [place] [address] Alejandro Villar MD, PhD [address] [place] [address] Follow Up-rescheduled from 06/22 Neurology Comment on above: Follow Up-reschedule d from 06/22 Start: 04-21-2024 Patient referral [facility] Work Phone: Start: 11-15-2023 Advance Directive Discussion Advance Directive Discussion [facility] Start: 08-05-2023 [facility] Start: 08-03-2023 Hospital admission [facility] Start: 08-03-2023 [facility] Start: 07-16-2023 Covid-19 Vaccine () Covid-19 Vaccine () [facility] Start: 07-16-2023 Influenza vaccination [facility] Start: 11-15-2022 ADVANCE DIRECTIVE DISCUSSION ADVANCE DIRECTIVE DISCUSSION [facility] Start: 09-10-2022 End: 11-10-2022 levETIRAcetam [Mass/volume] in Serum or Plasma [facility] Work Phone: Comment on above: Expected: 09/10/2022 , Expires: 11/10/2022 Start: 09-10-2022 End: 11-10-2022 Zonisamide [Mass/volume] in Serum or Plasma [facility] Work Phone: Comment on above: Expected: 09/10/2022 , Expires: 11/10/2022 Start: 07-16-2022 Influenza vaccination INFLUENZA (#1) [facility] Start: 04-30-2022 Screening for malign ant neoplasm of colon [facility] Start: 11-15-2021 ADVANCE DIRECTIVE DISCUSSION ADVANCE DIRECTIVE DISCUSSION [facility] Start: 02-04-2019 Pneumococcal Vaccine : 65+ (2 - PCV) Pneumococcal Vaccine: 65+ (2 - PCV) [facility] Start: 02-04-2019 Pneumococcal Vaccine : 65+ (2 of 2 - PCV) Pneumococcal Vaccine: 65+ (2 of 2 - PCV) [facility] Start: 2015 BONE DENSITY BONE DENSITY [facility] Start: 2015 Bone Density Screening Bone Density Screening [facility] Start: 2015 PNEUMOCOCCAL: 65+ (1 - PCV) PNEUMOCOCCAL: 65+ (1 - PCV) [facility] Start: 2015 Screening for osteoporosis Bone Density Screening [facility] Start: 2010 RSV Vaccine (1 - 1-d ose 60+ series) RSV Vaccine (1 - 1-dose 60+ series) [facility] Start: 2000 SHINGRIX VACCINE (1 of 2) SHINGRIX VACCINE (1 of 2) [facility] Start: 1995 COLOGUARD (FIT-DNA) COLOGUARD (FIT-D NA) [facility] Start: 1995 Colonoscopy COLONOSCOPY [facility] Start: 1995 COLORECTAL CANCER SCREENING COLORECTAL CANCER SCREENING [facility] Start: [address] COLONOGRAPHY [facility] Start: 1995 FECAL OCCULT BLOOD FECAL OCCULT BLOO D [facility] Start: 1995 Lipid 1996 panel - S akila or Plasma Lipid Screening [facility] Start: 1995 Lipid panel Lipid Screening [facility] Start: 1995 LIPID SCREEN LIPID SCREEN [facility] Start: 1995 Screening for malign ant neoplasm of colon [facility] Start: 1995 SIGMOIDOSCOPY SIGMOIDOSCOPY [facility] Start: 1990 Mammography [facility] Start: 1990 Screening for malign ant neoplasm of breast Mammogram Screening [facility] Start: 1969 Urine microalbumin profile [facility] Start: 1968 ANNUAL PCP TEAM INSPECTOR FABRIC YESENIA DISEASE VISIT ANNUAL PCP TEAM CHRONIC DISEASE VISIT [facility] Start: 1968 BP CONTROLLED (<130/80) BP CONTROLLE D (<130/80) [facility] Start: 1968 HEPATITIS C SCREENING HEPATITIS C [facility] Start: 1968 Hepatitis C screening Hepatitis C [facility] Start: 1950 COVID-19 VACCINE (#1) COVID-19 VACCI NE (#1) [facility] End: 07-23-2023 ECG COMPLETE ECG COMPLETE ECG Routine Chronic fatigue 1 Occurrences starting 07/23/2022 until 07/23/2023 [facility] Work Phone: Comment on above: 1 Occurrences starti ng 07/23/2022 until 07/23/2023 ECG COMPLETE ECG COMPLETE ECG Routine Sinus node dysfunction (HCC) Cardiac pacemaker in situ Bradycardia Ordered: 09/08/2023 [facility] Work Phone: Comment on above: Ordered: 09/08/2023 Patient Education [facility] Work Phone: Patient referral [facility] Work Phone: [facility] Immunizations Immunization Date Immunization Notes Care Provider Aryan tamayo 07-30-2022 influenza virus vaccine, split virus (incl. purified surface antigen) Niki Weeks Other [employer] [facility] Other 07-30-2022 influenza virus vaccine, unspecified formulation [facility] 09-10-2021 COVID-19 mRNA-1273 (Moderna) DO [employer] Work Phone: [facility] 07-30-2021 influenza virus vaccine, split virus (incl. purified surface antigen) Niki Blades Other [facility] Other 07-30-2021 influenza virus vaccine, unspecified formulation [facility] 01-14-2021 COVID-19 mRNA-1273 (Moderna) DO Broderick [employer] Work Phone: [facility] 12-17-2020 COVID-19 mRNA-1273 (Moderna) DO [employer] Work Phone: [facility] 09-03-2020 influenza virus vaccine, split virus (incl. purified surface antigen) Niki Blades Other [facility] Other 09-03-2020 influenza virus vaccine, unspecified formulation [facility] 08-23-2019 influenza virus vaccine, split virus (incl. purified surface antigen) Niki Blades Other [facility] Other 08-23-2019 influenza virus vaccine, unspecified formulation [facility] 09-07-2018 influenza virus vaccine, split virus (incl. purified surface antigen) Niki Blades Other [facility] Other 09-07-2018 influenza virus vaccine, unspecified formulation [facility] 02-04-2018 pneumococcal polysaccharide vaccine, 23 valent Niki Blades Other [facility] Payers Date Payer Category Payer Self-pay [id number] 2021 Unknown [id number] 2015 Private Health Insurance [employer] MEDICARE SUPPLEMENT [id number] 2015-Present [phone] [address] [place] [id number] Indemnity [id number] 2013 Medicare [id number] 2008 Unknown [place] [id number] 1959 Medicare [id number] 1959 Medicare [id number] 2.16.840.1.523910. 1950 Unknown [id number] 2.840.1.633183.3.579.2 .593 1950 Unknown [id number] 2.840.1.417939.3.579.2 .593 1950 Unknown [id number] 2.840.1.400689.3.579.2 .593 1950 Unknown [id number] 2.16840.1.897546.3.579.2 .593 1950 Unknown [id number] 2.16840.1.522740.3.579.2 .593 1950 Unknown [id number] 2.840.1.136341.3.579.2 .593 1950 Unknown [id number] 2.16840.1.325754.3.579.2 .593 1950 Unknown [id number] 2.16.840.1.129219.3.579.2 .593 1950 Unknown [id number] 2.16840.1.191572.3.579.2 .593 1950 Unknown [id number] 2.16.840.1.678879.3.579.2 .593 1950 Unknown [id number] 2.16.840.1.465138.3.579.2 .593 1950 Unknown [id number] 2..840.1.705550.3.579.2 .593 1950 Unknown [id number] 2.840.1.735669.3.579.2 .593 1950 Unknown [id number] 2..840.1.728030.3.579.2 .593 1950 Unknown [id number] 2.840.1.294865.3.579.2 .593 1950 Unknown [id number] 2.840.1.154732.3.579.2 .593 1950 Unknown [id number] 2.840.1.764750.3.579.2 .593 1950 Unknown [id number] 2.840.1.390673.3.579.2 .356 1950 Unknown [id number] 2.840.1.074873.3.579.2 .356 1950 Unknown [id number] 2.840.1.465786.3.579.2 .1259 1950 Unknown [id number] 2.840.1.291656.3.579.2 .1259 1950 Unknown [id number] 2..840.1.109275.3.579.2 .1259 Unknown [id number] 2.16.840.1.533081.3.579.2 .531 Unknown [id number] 2.16.840.1.227977.3.579.2 .531 Unknown [id number] 2.840.1.428783.3.579.2 .531 Unknown [id number] 2.16.840.1.034679.3.579.2 .531 Unknown [id number] 2.16.840.1.297337.3.579.2 .531 Social History Date Type Detail Facility Start: 09-10-2022 End: 09-08-2023 Sex Assigned At [facility] Start: 02-19-2011 End: 08-03-2023 Tobacco smoking status NHIS Never smoked tobacco [facility] Start: 02-19-2011 End: 09-10-2022 Tobacco use and exposure Smokeless tobacco non-user [facility] Start: 11-28-2021 End: 03-07-2024 Alcohol intake Current non-drinker of alcohol (finding) [facility] Start: 1950 Sex Assigned At Not on file [facility] Start: 07-13-2022 End: 09-10-2022 Exposure to SARS-CoV-2 (event) Not sure [facility] Start: 1950 Sex Assigned At Female F [facility] Start: 09-10-2022 End: 09-08-2023 History of Social function [facility] Adult Depression Screening Assessment 2 [facility] Medical Equipment Procedure Code Equipment Code Equipment Origin al Text Equipment Identifier Dates Plate Bn 12mm Cm f Ti 2 H Lp - [id number] Start: 08-16-2015 Pin Crss Sd Scr 1.5x4mm - [id number] Start: 08-16-2015 Goals Date Patient Goal Desired Activity /State Functional Status Date Assessment Result Facility 08-05-2023 Functional status Patient at Baseline [facility] Work Phone: Mental Status Date Assessment Result Facility 08-05-2023 Cognitive function Cognitive Sta tus Patient at Baseline [facility] Work Phone: Clinical Notes 01-24-2015 to 03-15-2024 Randa Reilly MD - 03/07/2024 9:30 AM EDTPatient Alejandro Delgado MD, PhD - 12/23/2023 9:00 AM EST Note Date & Type Note Facility 03-15-2024 Note DUAL CHAMBER PACEMAK ER REMOTE EVALUATION: PRESENTING EGM: AP/VS BATTERY STATUS: Estimated time remaining to CASSI is 2 years COUNTERS SINCE: 12/08/23 ATRIAL ARRHYTHMIAS: none VENTRICULAR ARRHYTHMIAS: There were no ventricular detections. LEAD MEASUREMENTS: Sensing is appropriate. Review of the lead impedance trends are normal. OTHER DIAGNOSTICS: RA pacing 99.6%. Total V pacing 0.3% FOLLOW UP: Continue remote transmissions every 3 months and yearly in-clinic interrogations. Art Case RN NOTE TO PROVIDERS: CARD Flowsheets contain detailed device programming and testing data. Paceart/Interrogation PDF can be found under CARDIAC DATA AND REPORT, Scanned Documents section. [facility] 03-07-2024 Note HNO ID: [id number] Author: RANDA REILLY MD Service: ? Author Type: Physician Type: Progress Notes Filed: 03/07/2024 13:16 Note Text: PROGRESS NOTE- HEADACHE MEDICINE SERVICE DATE: March 07, 2024 Location: [facility] [place] Participants: patient, and provider HPI: Here for follow up. Last seen in 2019. Then she had 3 Botox treatments with some relief. Still daily headaches but less severe episodes. Currently daily constant head pain with exacerbations 15 days a month. Her neck pain is also daily. S/p multiple C spine surgeries. Migraine Characteristics: Onset: Started when she was 30 Location: Holocephalic Quality:Throbbing, Aching, Sharp, Pressure, Exploding Associated symptoms: photophobia, phonophobia, nausea, blurred vision, neck pain, worse with movement. She says she would prefer to sit when having DOUGLASS. No changes with Valsalva maneuvers. Aura:no. Severity: 5/10 at baseline. With exacerbations of 10/10 about 15 days a month Frequency: daily for 3-4 decades Duration of attacks: constant Prior Treatments for migraine: Cymbalta Propranolol ( for high BP, stopped due to low HR) Amitriptyline Topamax Fiorecet Tizanidine Amlodipine Keppra Zonisamide Zoloft Depakote Verapamil Benazepril Botox injections. Helped a little bit. But insurance stopped paying for it. She is now on Medicare Imagin10/15/2016 CT head: no acute changes 2014 MRI brain wwo contrast Chart review: Note, epilepsy clinic 01/2024 Current Outpatient Medications Medication Sig zonisamide (ZONEGRAN) 100 mg capsule Take 3 capsules by mouth daily at bedtime. levETIRAcetam (KEPPRA) 750 mg tablet Take 1 tablet by mouth two times a day. amLODIPine (NORVASC) 5 mg tablet Take 5 mg by mouth once daily. amitriptyline (ELAVIL) 25 [...] No current facility-administered medications for this visit. PAST MEDICAL HISTORY Diagnosis Date Asthma, chronic Depression DJD (degenerative joint disease) HTN (hypertension) IBS (irritable bowel syndrome) SHELL (obstructive sleep apnea) Reflux Right leg DVT (HCC) 03/09/2013 Seizure (HCC) Seizures (HCC) ALLERGIES Allergen Reactions Lyrica [Pregabalin] Rash Dexamethasone Rash BP 133/72 Pulse 85 Ht 157.5 cm (5' 2 ) Wt 84.5 kg (186 lb 3.2 oz) BMI 34.06 kg/m? ASSESSMENT: - 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 aura - chronic cervicalgia - CKD RECOMMENDATIONS: 1. Preventive therapy: - re-try Botox. No hx of neuromuscular disorders. 2.Referral to spine medicine 3.Referral to sleep medicine Of the 40 minute long appointment visit, I spent at least 50% of the nqnw-nl-fpry time in counseling, explanation of diagnosis, planning of further management, and answering all questions. Randa Reilly MD [facility] 03-07-2024 History of Presen t illness Narrative PROGRESS NOTE- HEADACHE MEDICINE SERVICE DATE: March 07, 2024 Location: [facility] Participants: patient, and provider HPI: Here for follow up. Last seen in 2018. Then she had 3 Botox treatments with some relief. Still daily headaches but less severe episodes. Currently daily constant head pain with exacerbations 15 days a month. Her neck pain is also daily. S/p multiple C spine surgeries. Migraine Characteristics: Onset: Started when she was 30 Location: Holocephalic Quality:Throbbing, Aching, Sharp, Pressure, Exploding Associated symptoms: photophobia, phonophobia, nausea, blurred vision, neck pain, worse with movement. She says she would prefer to sit when having DOUGLASS. No changes with Valsalva maneuvers. Aura:no. Severity: 5/10 at baseline. With exacerbations of 10/10 about 15 days a month Frequency: daily for 3-4 decades Duration of attacks: constant Prior Treatments for migraine: Cymbalta Propranolol ( for high BP, stopped due to low HR) Amitriptyline Topamax Fiorecet Tizanidine Amlodipine Keppra Zonisamide Zoloft Depakote Verapamil Benazepril Botox injections. Helped a little bit. But insurance stopped paying for it. She is now on Medicare Imagin10/15/2016 CT head: no acute changes 2014 MRI brain wwo contrast Chart review: Note, epilepsy clinic 01/2024 Current Outpatient Medications Medication Sig zonisamide (ZONEGRAN) 100 mg capsule Take 3 capsules by mouth daily at bedtime. levETIRAcetam (KEPPRA) 750 mg tablet Take 1 tablet by mouth two times a day. amLODIPine (NORVASC) 5 mg tablet Take 5 mg by mouth once daily. amitriptyline (ELAVIL) 25 [...] No current facility-administered medications for this visit. PAST MEDICAL HISTORY Diagnosis Date Asthma, chronic Depression DJD (degenerative joint disease) HTN (hypertension) IBS (irritable bowel syndrome) SHELL (obstructive sleep apnea) Reflux Right leg DVT (HCC) 03/09/2013 Seizure (HCC) Seizures (HCC) ALLERGIES Allergen Reactions Lyrica [Pregabalin] Rash Dexamethasone Rash BP 133/72 Pulse 85 Ht 157.5 cm (5' 2 ) Wt 84.5 kg (186 lb 3.2 oz) BMI 34.06 kg/m ASSESSMENT: - 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 aura - chronic cervicalgia - CKD RECOMMENDATIONS: 1. Preventive therapy: - re-try Botox. No hx of neuromuscular disorders. 2.Referral to spine medicine 3.Referral to sleep medicine Of the 40 minute long appointment visit, I spent at least 50% of the temk-uk-edpl time in counseling, explanation of diagnosis, planning of further management, and answering all questions. Randa Reilly MD [facility] [place] documented in this encounter [facility] 12-23-2023 Note HNO ID: [id number] Author: ALEJANDRO VILLAR MD, PhD Service: ? Author Type: Physician Type: Progress Notes Filed: 12/23/2023 13:37 Note Text: [facility] CHIEF COMPLAINT: Patient presents with: [...] was referred to the headache clinic at [facility] in the past but at this time [...] There is no focal weakness. 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 Intermittent Slow, Regional Right temporal Ictal (more content not included)... [facility] 12-23-2023 Instructions Lauren Otero APRN.CNP - 12/23/2023 9:42 AM EST To schedule with headache clinic (can schedule at [facility]): [phone] documented in this encounter [facility] 12-23-2023 History of Presen t illness Narrative [facility] CHIEF COMPLAINT: Patient presents with: [...] was referred to the headache clinic at [facility] in the past but at this time [...] There is no focal weakness. PREVIOUS EVALUATIONS: [facility], 05/2015: Right Temporal Epilepsy Seizures: Aura -> [...] Present at patient management conference were Chito Matais, Kalyan Mantilla, and myself (Dr. Larkin). The [...] know if she decides to pursue at [facility] - she needs for spine doctor, plans to talk to PCP first but will let us know if she needs referral to someone here at [facility] - ENT referral as needed for change [...] MD, PhD in collaboration with Lauren Otero APRN.NIC December 23, 2023 documented in this encounter [facility] 11-24-2023 Evaluation note Encounter Date Diagnosis Assessment Notes Nov, Acute non-recurrent maxillary sinusitis (ICD-10 - J01.00) Instructed to use Robitussin or Mucinex for cough, saline or Flonase NS for congestion, Tylenol for pain and fever. Nov, Primary hypertension (ICD-10 - I10) Increased risk for more serious, prolonged illness. [facility] Other [id number] Miscellaneous Notes* Telephone Encounter - Mirian Bell APRN.CNP - 09/13/2023 1:53 PM EDT Thank you reviewed scan documents. Mriian Bell APRN.NIC * Telephone Encounter - Brenda Hodges RN - 09/13/2023 7:58 AM EDT Received medical records from [facility] and scanned into chart for review. [facility] Miscellaneous Notes* Telephone Encounter - Daniel Macias APRN.CNP - 09/13/2023 1:44 PM EDT The following approved medication requests have been transmitted electronically. Requested Prescriptions Signed Prescriptions Disp Refills levETIRAcetam (KEPPRA) 750 mg tablet 180 tablet 0 Sig: Take 1 tablet by mouth two times a day. Authorizing Provider: DANIEL MACIAS APRN.CNP * Telephone Encounter - Gayle Medrano - 09/13/2023 12:33 PM EDT Prescription Refill: Requested by: patient Please E-Scribe Caller Contact Number: Pharmacy Name: [facility] Pharmacy Number: [phone] Generic/ brand: 30 or 90 day supply requested: 90 Last appointment: 09/10/22 Next Appointment: 12/09/[address] Villar documented [facility]2023 NoteHNO ID: [id number] Author: Mirian Bell APRN.CNP Service: ? Author Type: Nurse Practitioner Type: Progress Notes Filed: 09/08/2023 3:29 PM Note Text: [facility] [place] [facility] Department of Cardiovascular Medicine SECTION OF CARDIAC PACING and ELECTROPHYSIOLOGY OUTPATIENT VISIT DATE September 08, 2023 OUTPATIENT VISIT TYPE ESTABLISHED PRIMARY CARE PHYSICIAN: Broderick Howard (Zack) [address] [place] [address] CHIEF COMPLAINT: follow up device management HISTORY OF PRESENT ILLNESS: Ms. Rodrigez is a 73 year old female who presents today for followed by Dr. Garner for h/o symptomatic sinus bradycardia (presyncope, decrease exercise tolerance, sinus node dysfunction, s/p dual chamber pacemaker (medtronic, 2015), preserved LV systolic heart function, Other PMH of epilepsy (managed with antiepileptic), h/o pancreatic cancer (s/p whipple, chemo), hypertension, asthma, depression, GERD h/o right leg DVT (2012), seizure, SHELL, IBS, continuous churn buttermaker anticoagulation. Moderate functional capacity (active with ADL, [...] in INCHES 64 in. (more content not included)...[facility] 09-08-2023 Instructions* Patient Instructions* Mirian Bell APRN.CNP - 09/08/2023 3:21 PM EDT Please schedule for device check & in one year Please have patient sign release of medical labs from [facility] had labs last month documented in [facility]23 History of Present illness Narrative* Mirian Bell APRN.CNP - 09/08/2023 2:30 PM EDT Images from the original note were not included. [facility] [place] [facility] Department of Cardiovascular Medicine SECTION OF CARDIAC PACING and ELECTROPHYSIOLOGY OUTPATIENT VISIT DATE September 08, 2023 OUTPATIENT VISIT TYPE ESTABLISHED PRIMARY CARE PHYSICIAN: Broderick Howard (Zack) [address] [place] [address] CHIEF COMPLAINT: follow up device management HISTORY [...] right leg DVT (2012), seizure, SHELL, IBS, senior living anticoagulation. Moderate functional capacity (active with ADL, [...] 09-08-2023 Dual chambered pacer EVALUATION PRESENTS FOR: OTR DRIVER visit PRESENTING EGM: AP/VS UNDERLYING RHYTHM: BATTERY [...] 4. Annual labs, I will obtain from [facility] she had last month Follow up appointment: Dr. Garner & device check in one year I spent 25 to 30 minutes in the visit, with more than 50% of the total [id number]-upyj time of the visit in counseling / coordination of care. CONTACT INFORMATION: Mirian Bell APRN.CNP, 09/08/23 [facility] [address] [facility]. [place] [id number] documented in this encounterM[facility]10-11-2023 Evaluation note* Encounter Date Diagnosis Assessment Notes Treatment Notes Treatment Clinical Notes Aug, Lumbar stenosis with neurogenic claudication (ICD-10 - M48.062) [facility] Other 10-02-2023 Evaluation note* Encounter Date Diagnosis Assessment Notes Treatment Notes Treatment Clinical Notes Aug, Lumbar stenosis with neurogenic claudication (ICD-10 - M48.062) [facility] Other 09-28-2023 Evaluation note* Encounter Date Diagnosis Assessment Notes Treatment Notes Treatment Clinical Notes Jul, Lumbar stenosis with neurogenic claudication (ICD-10 - M48.062) [facility] Other 09-20-2023 Progress note Author Niki Weeks [facility] August 04, 2023 7:57am Note Date/Time August 04, 2023 7:57am [facility] [address] [place] [address] Neurosurgery Progress Note Signed Patient: Cassi Rodrigez MR#: [id number] : 1950 Acct:[id number] Age/Sex: 73 / F Adm Date: 3 Loc: 4N Room: [address] [place] [address] Type: REG SDC Attending Dr: Niki Weeks MD Copies to: ~ Date of Service: [...] % (Auto) 91.6, Lymph % (Auto) 4.4, [place] % (Auto) 4.0, Eos % (Auto) 0.0, Baso % (Auto) 0.0, Nucleat RBC Rel Count 0.1, Neut # (Auto) 10.4 H, Lymph #(Auto) 0.5 L, [place] # (Auto) 0.5, Eos # (Auto) 0.0, [...] With Patient (min): 30 Documented By: Niki Weeks MD 08/04/23 075 2 Signed By: <Electronically signed by Niki Weeks MD> 08/04/23 0757 [facility] Work Phone: 1(392) 886-623008-23-2023 Evaluation note* Encounter Date Diagnosis Assessment Notes Treatment Notes Treatment Clinical Notes Jun, Lumbar stenosis with neurogenic claudication (ICD-10 - M48.062) [facility] Other 06-22-2023 Evaluation note* Encounter Date Diagnosis [...] will continue with this therapy without change. [facility] Other 06-19-2023 Evaluation note* Encounter Date Diagnosis Assessment Notes Treatment Notes Treatment Clinical Notes Apr, Lumbosacral spondylosis with radiculopathy (ICD-10 - M47.27) [facility] Other 06-19-2023 Evaluation note* Encounter Date Diagnosis [...] until MRI completed MRI being rescheduled for [facility] due to PM Apr, Stage 3b chronic kidney disease (ICD-10 - N18.32) The patient is instructed on adequate control of hypertension and diabetes, if appropriate. They are also educated on the associated risks of NSAIDs and PPI use with kidney disease. They were instructed on adequate fluid balance and to avoid dehydration. Apr, History of lumbar fusion (ICD-10 - Z98.1) [facility] Other 05-15-2023 Evaluation note* Encounter Date Diagnosis Assessment Notes Treatment Notes Treatment Clinical Notes March, Lumbosacral spondylosis with radiculopathy (ICD-10 - M47.27) [facility] Other 05-11-2023 Evaluation note* Encounter Date Diagnosis [...] use, the patient reduces the risk for UT, CVA, HTN, cardiac dysrhythmias and sudden cardiac [...] Other Stable w/o breakthrough Sz. Secondary to ADDICTION SPECIALIST surgery Continue surveillance w/ [facility] Other 2023 Evaluation note* Encounter Date Diagnosis Assessment Notes Treatment Notes Treatment Clinical Notes Jan, Nausea (ICD-10 - R11.0) [facility] Other 02-23-2023 Evaluation note* Encounter Date Diagnosis Assessment Notes Treatment Notes Treatment Clinical Notes Dec, Nausea (ICD-10 - R11.0) Increase Amitriptyline to 15mg at bedtime Dec, Constipation (ICD-10 - K59.00) Start Linzess 72mcg daily Pt to call if symptoms worsen or return Follow up in 4 months [facility] Other 01-11-2023 Evaluation note* Encounter Date Diagnosis [...] use, the patient reduces the risk for UT, CVA, HTN, cardiac dysrhythmias and sudden cardiac [...] to trial Amitiza and discuss w/ GI [facility] Other [id number] History of Present illness Narrative* Lauren Otero APRN.NIC - 09/10/2022 1:53 PM EDT [facility] CHIEF COMPLAINT: Patient presents with: [...] She was [facility] in the past but at this time [...] There is no focal weakness. PREVIOUS EVALUATIONS: [facility], 05/2015: Right Temporal Epilepsy Seizures: Aura -> [...] by Dr. Alejandro Villar. [facility] History of Present illness Narrative* Kitty Vidal MD - 07/23/2022 10:00 AM EDT Images from the original note were not included. [facility] Department of Cardiovascular Medicine SECTION OF CARDIAC PACING and ELECTROPHYSIOLOGY OUTPATIENT VISIT DATE July 23, 2022 OUTPATIENT VISIT TYPE ESTABLISHED PRIMARY CARE PHYSICIAN: Broderick Howard MD ([facility]) [address] [place] [address] CHIEF COMPLAINT: Pacemaker management HISTORY OF PRESENT [...] Lymph 1.00 - 4.00 k/uL 0.93 (L) Chugach% % 7.7 Abs Chugach <0.87 k/uL 0.32 Eosin% % 5.3 Abs [...] 72 year old female with epilepsy (since 80 - managed w antiepileptic Rx - well [...] 3 months In person follow-up with Mirian Bell in 12 months; alternating with me on an annual basis Kitty Vidal MD Electrophysiology documented [facility] Evaluation note* Encounter Date Diagnosis Assessment Notes Treatment Notes Treatment Clinical Notes Dec, Nausea (ICD-10 - R11.0) PATIENT STATES THAT THIS HAS IMPROVED. PATIENT TO CONTINUE ON THE AMITRIPTYLINE DOSE AT THIS TIME. [facility] Other 03-12-2015 History of Past illness Narrative* Problem Noted Date Resolved Date Seizure 01/24/2015 06/21/2018 documented as of this encounter (statuses as of 07/23/2022) [facility] of [facility] illness Narrative* Problem Noted Date Resolved Date Seizure 01/24/2015 06/21/2018 documented as of this encounter (statuses as of 08/26/2022) [facility] of [facility] illness Narrative* Problem Noted Date Resolved Date Seizure 01/24/2015 06/21/2018 documented as of this encounter (statuses as of 09/10/2022) [place] [id number] History of Past illness Narrative* Problem Noted Date Resolved Date Seizure 01/24/2015 06/21/2018 documented as of this encounter (statuses as of 11/26/2022) [place] [address]-12-2015 History of Past illness Narrative* Problem Noted Date Resolved Date Seizure 01/24/2015 06/21/2018 documented as of this encounter (statuses as of 02/25/2023) [address]12-2015 History of Past illness Narrative* Problem Noted Date Diagnosed Date Resolved Date Seizure 01/24/2015 06/21/2018 documented as of this encounter (statuses as of 06/17/2023) [address]12-2015 History of Past illness Narrative* Problem Noted Date Diagnosed Date Resolved Date Seizure 01/24/2015 06/21/2018 documented as of this encounter (statuses as of 09/08/2023) [address]12-2015 History of Past illness Narrative* Problem Noted Date Diagnosed Date Resolved Date Seizure 01/24/2015 06/21/2018 documented as of this encounter (statuses as of 09/09/2023) [address]12-2015 History of Past illness Narrative* Problem Noted Date Diagnosed Date Resolved Date Seizure 01/24/2015 06/21/2018 documented as of this encounter (statuses as of 09/14/2023) [address]12-2015 History of Past illness Narrative* Problem Noted Date Diagnosed Date Resolved Date Seizure 01/24/2015 06/21/2018 documented as of this encounter (statuses as of 09/14/2023) [address]12[address]2015 History of Past illness Narrative* Problem Noted Date Diagnosed Date Resolved Date Seizure 01/24/2015 06/21/2018 documented as of this encounter (statuses as of 12/23/2023) [facility] Niki Weeks [facility] August 05, 2023 8:09am Note Date/Time August 05, 2023 8:09am [facility] [address] [place] [address] Discharge Summary Signed Patient: Cassi Rodrigez MR#: [id number] : 1950 Acct:[id number] Age/Sex: 73 / F Adm Date: 3 Loc: 4N Room: 3V0815-[address]: Niki Weeks MD Copies to: DO Niki Martines MD~ Providers Date of Discharge: 08/05/23 Discharging Provider: Niki Weeks Primary Care Provider: Broderick Howard Consults: 08/03/23 09:52 Consult to Occupational Therapy [...] Lumbar Decompression L3-L4, L4-L5(Not Applicable) - Niki Weeks MD Complications Complications: None Diagnostic Studies Completed [...] % (Auto) 77.1, Lymph % (Auto) 11.8, [place] % (Auto) 9.2, Eos % (Auto) 1.7, Baso % (Auto) 0.2, Nucleat RBC Rel Count 0.4, Neut # (Auto) 5.6, Lymph # (Auto) 0.9 L, [place] # (Auto) 0.7, Eos # (Auto) 0.1, Baso # (Auto) 0.0 Exam Physical Exam Vital Signs: Temp Pulse Resp BP Pulse Ox O2 Del Method O2 Flow Rate 97.8 F 63 14 117/73 97 Room Air 3 08/05/23 07:21 08/05/23 07:21 08/05/23 07:21 08/05/23 07:08/05/23 07:08/05/23 07:08/04/23 00:00 Narrative: Mrs. Rodrigez was [...] Q8H PRN (Reason: Nausea) Follow Up: Niki Weeks MD [Active Staff] - 08/16/23 10:00 am Documented By: Niki Weeks MD 08/05/23 080 5 Signed By: <Electronically signed by Niki Weeks MD> 08/05/23 0809 [facility] Work Phone: Evaluation note* Diagnosis Chronic fatigue- Primary Other malaise and fatigue documented [facility] this encounter [facility]* Diagnosis Partial epilepsy with impairment of consciousness, intractable (HCC) Localization-related (focal) (partial) epilepsy and epileptic syndromes with complex partial seizures, with intractable epilepsy documented in this encounter [facility] noteNo assessment information [facility] Work Phone: Evaluation noteNo InformationNohannibal regional hospital [employer] Other evaluation note* Diagnosis Onset Date Resolution Status Lumbar stenosis with neurogenic claudication acute [facility] Work Phone: Evaluation note* Diagnosis Sinus node dysfunction (HCC)- Primary Sinoatrial node dysfunction Cardiac pacemaker in situ Bradycardia Other specified cardiac dysrhythmias documented in this encounter [facility]* Diagnosis Partial epilepsy with impairment of consciousness, intractable (HCC) Localization-related (focal) (partial) epilepsy and epileptic syndromes with complex partial seizures, with intractable epilepsy documented in this encounter [facility]* Diagnosis Pacemaker [Z95.0]- Primary Cardiac pacemaker in situ documented in this encounter [facility]* Diagnosis Intractable 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 aura and without status migrainosus- Primary Chronic migraine without aura, with intractable migraine, so stated, without mention of status migrainosus documented in this encounter [facility]* Diagnosis Intractable 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 aura and without status migrainosus- Primary Chronic migraine without aura, with intractable migraine, so stated, without mention of status migrainosus Cervicalgia SHELL (obstructive sleep apnea) Obstructive sleep apnea (adult) (pediatric) documented in this encounter [facility]* Diagnosis Onset Date Resolution Status Hypertension acute Lumbar stenosis with neurogenic claudication acute [facility] Work Phone: Evaluation note* Diagnosis Onset Date Resolution Status Hypertension acute Lumbar stenosis with neurogenic claudication acute Age-related osteoporosis wit hout current pathological fracture acute Chronic kidney disease acute Hypertension acute Lumbosacral spondylosis with radiculopathy acute Obstructive sleep apnea acut e [facility] Work Phone: History general Narrative - Reported* Type Description Date Surgical History back surgery-2 Surgical History cervical fusion Surgical History cholecystectomy Surgical History whipple procedure 2010 Surgical History appendectomy Surgical History hammer toe Surgical History rotator cuff-left Surgical History temporal lumpectomy Hospitalization History see surgical hx [facility] Other Hisleha general Narrative - Reported* Type Description Date [...] Obstructive sleep apnea Medical History Encounter for [facility] [place] exam with routine gynecological exam [...] Essential hypertension Medical History Current use of senior living anticoa gulation Medical History History of pancreatic [...] temporal lumpectomy Hospitalization History see surgical hx [facility] Other History general Narrative - Reported* Type [...] Obstructive sleep apnea Medical History Encounter for well w yuli exam with routine gynecological exam [...] Essential hypertension Medical History Current use of senior living anticoa gulation Medical History History of pancreatic [...] Port removal Hospitalization History see surgical hx [facility] Other History general Narrative - Reported* Type [...] Obstructive sleep apnea Medical History Encounter for well w yuli exam with routine gynecological exam [...] Essential hypertension Medical History Current use of continuous churn buttermaker anticoa gulation Medical History History of pancreatic [...] L4-5 07/2023 Hospitalization History see surgical hx [facility] Other Hospital Discharge instructions Additional Instructions Eat a well [facility] Work Phone: Hospital Discharge instructionsAmbulatory Orders* Referral to Orthopedic Surgery Location: None Selected [facility] Work Phone: Progress note Author Niki Weeks [facility] August 05, 2023 8:00am Note Date/Time August 05, 2023 8:00am [facility] [address] [place] [address] Neurosurgery Progress Note Signed Patient: Cassi Rodrigez MR#: [id number] : 1950 Acct:[id number] Age/Sex: 73 / F Adm Date: 3 Loc: 4N Room: [id number] Type: REG SDC Attending Dr: Niki Weeks MD Copies to: ~ Date of Service: [...] % (Auto) 77.1, Lymph % (Auto) 11.8, [place] % (Auto) 9.2, Eos % (Auto) 1.7, Baso % (Auto) 0.2, Nucleat RBC Rel Count 0.4, Neut # (Auto) 5.6, Lymph # (Auto) 0.9 L, [place] # (Auto) 0.7, Eos # (Auto) 0.1, [...] With Patient (min): 20 Documented By: Niki Weeks MD 08/05/23 075 5 Signed By: <Electronically signed by Niki Weeks MD> 08/05/23 0800 [facility] Work Phone: Reason for referral (narrative)* Outpatient Procedure (Routine) - Closed Specialty Diagnoses / Procedures Referred By Contradha t Referred To [facility] Diagnoses Chronic fatigue Procedures ECG COMPLETE ECG ROUTINE ECG W/LEAST 12 LDS W/I&[place] [address] [place] [address] [facility] [address] [place] [address] Referral ID Status Reason Start Date Expiration Date V isits Requested Visits Authorized [id number] Closed Auto-Generate d Referral 07/23/2022 07/23/2023 1 1 [facility] (n[facility]ative[facility] Outpatient Procedure (Routine) - Pending Review Specialty Diagnoses / Procedures Referred By Contac t Referred [facility] Diagnoses Sinus node dysfunction (HCC) Cardiac pacemaker in situ Bradycardia Procedures ECG COMPLETE ECG ROUTINE ECG W/LEAST 12 LDS W/I&R Mirian Bell APRN.CNP [address] [place] [address] [facility] [address] [place] [address] Referral ID Status Reason Start Date Expiration Date Visits Requested Visits Authorized [id number] Pending Review Auto-Generat ed Referral 3 09/07/2024 1 1 [facility] Summary Purpose Family History No Family History Records Found Relationship Condition Age at Onset Recorded Date/T miguel father Malignant neoplasm of pancreas Unknown brother Malignant neoplasm of pancreas Unknown Not Specified Malignant neoplasm of breast Unknown Relationship Condition Age at Onset Recorded Date/T miguel father Malignant neoplasm of pancreas Unknown brother Malignant neoplasm of pancreas Unknown Not Specified Malignant neoplasm of breast Unknown family member Unknown Advance Directives No Advanced Directives Records Found Advance Directive Response Recorded Date/ Time Advance Directives No September 15, 2019 12:04pm Chief Complaint and Reason for Visit Chief Complaint m47.27 Chief Complaint m47.27 m47.27 Chief Complaint m47.27 m47.27 stenosis Chief Complaint m47.27 m47.27 stenosis stenosis Reason for Visit Lumbar stenosis with neurogenic claudication Chief Complaint Cough , Drainage For Weeks [phone] BACK ISSUES Chief Complaint BACK ISSUES Amb Documentation z95.0 Reason for Visit Hypertension Lumbar stenosis with neurogenic claudication Chief Complaint BACK ISSUES Amb Documentation z95.0 M54.50 1 month increased pain as before surgery w/blades Reason for Visit Hypertension Lumbar stenosis with neurogenic claudication Age-related osteoporosis without current pathological fracture Chronic kidney disease Hypertension Lumbosacral spondylosis with radiculopathy Obstructive sleep apnea Reason for Referral Specialty Diagnoses / Procedures Referred By Contac t Referred To Contact [facility] Diagnoses Cervicalgia Procedures CONSULT TO [facility] OFFICE/OUTPATIENT [facility] [address] [place] [address] [place] [address] Referral ID Status Reason Start Date Expiration Date Visits Requested Visits Authorized [id number] Authorized PCP Requested Referral 03/07/2024 03/07/2025 1 1 Specialty Diagnoses / Procedures Referred By Contac t Referred To Contact Diagnoses SHELL (obstructive sleep apnea) Procedures CONSULT TO SLEEP MEDICINE - ADULT OFFICE/OUTPATIENT [facility] [address] [place] [address] [place] [address] Referral ID Status Reason Start Date Expiration Date Visits Requested Visits Authorized [id number] Authorized PCP Requested Referral 03/07/2024 03/07/2025 1 1 Specialty Diagnoses / Procedures Referred By Contac t Referred To Contact [facility] Diagnoses Intractable 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 aura and without status migrainosus Procedures CONSULT TO HEADACHE CLINIC OFFICE/OUTPATIENT [facility] 60 MINUTES Lauren Otero APRN.OTR DRIVER [address] [place] [address] Neur Head[facility] Main [address] [place] [address] Referral ID Status Reason Start Date Expiration Date Visits Requested Visits Authorized [id number] Authorized PCP Requested Referral 12/23/2023 12/22/2024 1 1 Additional Source Comments REASON FOR VISIT (unrecogniz ed section and content) Reason Comments Cardiology Follow Up Reason Comments Established Patient 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 Patient st ates she has been stable since last visit. 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 Procedures CONSULT TO HEADACHE CLINIC OFFICE/OUTPATIENT [facility] 60 MINUTES Lauren Otero, CONNIE.OTR DRIVER [address] [place] [address] Neur Headache Main [address] [place] [address] Referral ID Status Reason Start Date Expiration Date V isits Requested Visits Authorized [id number] Closed PCP Requested Referral 12/23/2023 12/22/2024 1 1 Source Comments (unrecognize d section and content) In the event this informatio n is protected by the Federal Confidentiality of Alcohol and Drug Abuse Patient Records regulations: The Federal rules restrict any use of the information to criminally investigate or prosecute any alcohol or drug abuse patient.[facility] the event this information is protected by the Federal Confidentiality of Alcohol and Drug Abuse Patient Records regulations: The Federal rules restrict any use of the information to criminally investigate or prosecute any alcohol or drug abuse patient.[facility] HospitalIn the event this information is protected by the Federal Confidentiality of Alcohol and Drug Abuse Patient Records regulations: The Federal rules restrict any use of the information to criminally investigate or prosecute any alcohol or drug abuse patient.[facility] HospitalIn the event this information is protected by the Federal Confidentiality of Alcohol and Drug Abuse Patient Records regulations: The Federal rules restrict any use of the information to criminally investigate or prosecute any alcohol or drug abuse patient.[facility] HospitalIn the event this information is protected by the Federal Confidentiality of Alcohol and Drug Abuse Patient Records regulations: The Federal rules restrict any use of the information to criminally investigate or prosecute any alcohol or drug abuse patient.[facility] HospitalIn the event this information is protected by the Federal Confidentiality of Alcohol and Drug Abuse Patient Records regulations: The Federal rules restrict any use of the information to criminally investigate or prosecute any alcohol or drug abuse patient.[facility] HospitalIn the event this information is protected by the Federal Confidentiality of Alcohol and Drug Abuse Patient Records regulations: The Federal rules restrict any use of the information to criminally investigate or prosecute any alcohol or drug abuse patient.[facility] HospitalIn the event this information is protected by the Federal Confidentiality of Alcohol and Drug Abuse Patient Records regulations: The Federal rules restrict any use of the information to criminally investigate or prosecute any alcohol or drug abuse patient.[facility] HospitalIn the event this information is protected by the Federal Confidentiality of Alcohol and Drug Abuse Patient Records regulations: The Federal rules restrict any use of the information to criminally investigate or prosecute any alcohol or drug abuse patient.[facility] HospitalIn the event this information is protected by the Federal Confidentiality of Alcohol and Drug Abuse Patient Records regulations: The Federal rules restrict any use of the information to criminally investigate or prosecute any alcohol or drug abuse patient.[facility] HospitalIn the event this information is protected by the Federal Confidentiality of Alcohol and Drug Abuse Patient Records regulations: The Federal rules restrict any use of the information to criminally investigate or prosecute any alcohol or drug abuse patient.[facility] HospitalIn the event this information is protected by the Federal Confidentiality of Alcohol and Drug Abuse Patient Records regulations: The Federal rules restrict any use of the information to criminally investigate or prosecute any alcohol or drug abuse patient.[facility] HospitalIn the event this information is protected by the Federal Confidentiality of Alcohol and Drug Abuse Patient Records regulations: The Federal rules restrict any use of the information to criminally investigate or prosecute any alcohol or drug abuse patient.[facility] Care Teams (unrecognized sec tion and content) Cotton Chopper Relationship Specialty Start Date End Date Broderick Howadr, DO [address] [place] [id number] PCP - General Internal Medicine 09/21/18 Kitty Valente MD [address] [place] [address] Primary Staff Physician Cardiology 01/31/19 Cotton Chopper Relationship Specialty Start Date End Date Broderick Howard, DO [address] [id number] PCP - General Internal Medicine 09/21/18 Kitty Valente MD [address] [place] [address] Primary Staff Physician Cardiology 01/31/19 Cotton Chopper Relationship Specialty Start Date End Date Broderick Howard, DO [address] [place] [address] PCP - General Internal Medicine 09/21/18 Kitty Valente MD [address] [place] [address] Primary Staff Physician Cardiology 01/31/19 Cotton Chopper Relationship Specialty Start Date End Date Broderick Howard, DO [address] [place] [address] PCP - General Internal Medicine 09/21/18 Kitty Valente MD [address] [place] [address] Primary Staff Physician Cardiology 01/31/19 Cotton Chopper Relationship Specialty Start Date End Date Broderick Howard, DO [address] [place] [address] PCP - General Internal Medicine 09/21/18 Kitty Valente MD [address] [place] [address] Primary Staff Physician Cardiology 01/31/19 Team Status: Active Member Role Status Dates Broderick Howard DO Primary Care Provider Active Team Status: Inactive Member Role Status Dates Broderick Howard DO Primary Care Provider, Attending Pr ovider Active Cotton Chopper Relationship Specialty Start Date End Date Broderick Howard DO [address] [place] [address] PCP - General Internal Medicine 09/21/18 Kitty Valente MD [address] [place] [address] Primary Staff Physician Cardiology 01/31/19 Team Status: Inactive Member Role Status Dates Broderick Howard DO Primary Care Provider Active Niki Weeks MD Attending Provider Active Cotton Chopper Relationship Specialty Start Date End Date Broderick Howard DO [address] [place] [place] [address] PCP - General Internal Medicine 09/21/18 Kitty Valente MD [address] [place] [address] Primary Staff Physician Cardiology 01/31/19 Cotton Chopper Relationship Specialty Start Date End Date Broderick Howard DO [address] [place] [address] PCP - General Internal Medicine 09/21/18 Kitty Valente MD [address] [place] [address] Primary Staff Physician Cardiology 01/31/19 Cotton Chopper Relationship Specialty Start Date End Date Broderick Howard DO [address] [id number] PCP - General Internal Medicine 09/21/18 Kitty Valente MD [address] [place] [address] Primary Staff Physician Cardiology 01/31/19 Cotton Chopper Relationship Specialty Start Date End Date Broderick Howard DO [address] [id number] PCP - General Internal Medicine 09/21/18 Kitty Valente MD [address] [place] [address] Primary Staff Physician Cardiology 01/31/19 Cotton Chopper Relationship Specialty Start Date End Date Broderick Howard DO [address] [place] [address] PCP - General Internal Medicine 09/21/18 Kitty Valente MD [address] [place] [address] Primary Staff Physician Cardiology 01/31/19 Team Status: Inactive Member Role Status Dates Broderick Howard DO Attending Provider Active Sta rt: November 24, 2023 End: November 24, 2023 Team Status: Inactive Member Role Status Dates Broderick Howard DO Primary Care Provide r, Attending Provider Active Start: February 09, 2024 End: February 09, 2024 Cotton Chopper Relationship Specialty Start Date End Date Broderick Howard DO [address] [place] [address] PCP - General Internal Medicine 09/21/18 Ktity Valente MD [address] [id number] Primary Staff Physician Cardiology 01/31/19 Team Status: Active Member Role Status Dates Broderick Howard DO Primary Care Provide r, Attending Provider Active Start: February 10, 2024 Team Status: Active Member Role Status Dates Broderick Howard DO Primary Care Provider Active Start: February 15, 2024 HERSON Golden Attending Provider Active St art: February 15, 2024 Team Status: Active Member Role Status Dates Broderick Howard DO Primary Care Provide r, Attending Provider Active Start: March 03, 2024 Team Status: Inactive Member Role Status Dates Broderick Howard DO Primary Care Provide r, Attending Provider Active Start: March 09, 2024 End: March 09, 2024 Cotton Chopper Relationship Specialty Start Date End Date Broderick Hwoard DO [address] [place] [address] PCP - General Internal Medicine 09/21/18 Kitty Valente MD [address] [id number] Primary Staff Physician Cardiology 01/31/19 Team Status: Inactive Member Role Status Dates Broderick Howard DO Primary Care Provide r, Attending Provider Active Start: March 28, 2024 End: March 28, 2024 Team Status: Inactive Member Role Status Dates Broderick Howard DO Primary Care Provide r, Attending Provider Active Start: March 29, 2024 End: March 29, 2024 Team Status: Inactive Member Role Status Dates Broderick Howard DO Primary Care Provider Active Start: April 21, 2024 End: April 21, 2024 Vu Le MD Attending Provider Active Star t: April 21, 2024 End: April 21, 2024 INFORMATION SOURCE (unrecogn ized section and content) DATE CREATED AUTHOR 07/24/2022 [facility] DATE CREATED AUTHOR AUTHOR'S ORGANIZ ATION 04/23/2023 [facility] DATE CREATED AUTHOR AUTHOR'S ORGANIZ ATION 06/11/2023 [facility] [place] DATE CREATED AUTHOR AUTHOR'S ORGANIZ ATION 09/14/2023 [facility] DATE CREATED AUTHOR AUTHOR'S ORGANIZ ATION 03/08/2024 [facility] DATE CREATED AUTHOR AUTHOR'S ORGANIZ ATION 03/30/2024 [facility] DATE CREATED AUTHOR AUTHOR'S ORGANIZ ATION 05/05/2024 [facility] EPIC Goals (unrecognized section and content) Goals may [...] BE BASED ON THE PRIMARY CLINICAL RECORDS. [email or web address] provides no warranty or guarantee of the accuracy or completeness of information in this document.
[2024-05-05 08:57] LABS: Basophils Percent Auto 1.1 % (0.2-2.0); Eosinophils Absolute Auto 0.3 10^3/uL (0.0-0.7); Eosinophils Percent Auto 6.9 % (0.9-7.0); Hematocrit 35.5 % (36.0-48.0); Hemoglobin 11.1 g/dL (12.0-16.0); Lymphocytes Percent Auto 27.1 % (20.5-60.0); Mean Corpuscular HGB Conc 31.3 g/dL (29.9-35.2); Mean Corpuscular Hemoglobin 28.8 pg (26.7-34.0); Mean Corpuscular Volume 92.2 fL (81.0-99.0); Mean Platelet Volume 9.4 fL (9.5-13.5); Monocytes Absolute Auto 0.3 10^3/uL (0.3-0.8); Monocytes Percent Auto 8.2 % (1.7-12.0); Neutrophils Absolute Auto 2.1 10^3/uL (1.4-6.5); Neutrophils Percent Auto 56.7 % (43.0-75.0); Platelet Count 217 10^3/uL (150-450); Red Blood Count 3.85 10^6/uL (4.20-5.40); Red Cell Distribution Width 13.3 % (11.0-15.0); White Blood Count 3.8 10^3/uL (4.0-11.0)
[2024-05-05 09:08] LABS: Erythrocyte Sedimentation Rate 45 mm/hr (<=30)
[2024-05-05 09:38] LABS: Anion Gap 10.2; C Reactive Protein <0.50 mg/dL (<=0.50); Calcium 8.4 mg/dL (8.5-10.1); Carbon Dioxide 26.2 mmol/L (21.0-32.0); Chloride 108 mmol/L (98-107); Estimated GFR (African America 38 (>=60); Estimated GFR (Non-African Ame 32 (>=60); Glucose 103 mg/dL (74-106); Potassium 4.4 mmol/L (3.5-5.1); Sodium 140 mmol/L (136-145)
== END 2024-05-05 08:22 | disposition home or self-care (01) ==
LOC: LAB 08:23
PROVIDERS: PCP Internal Medicine; Visit Provider Personal Emergency Response Attendant
DX: M54.16 Radiculopathy, lumbar region (principal)
CPT/HCPCS: 36415; 80048; 85025; 85652; 86140

== ENCOUNTER 2024-05-15 00:39 | Outpatient (RCR) | payer OTHER, SELFPAY | END 2024-06-14 09:38 | disposition home or self-care (01) | LOC: MM 00:39 | PROVIDERS: PCP Internal Medicine; Visit Provider Internal Medicine | DX: Z51.81 Encounter for therapeutic drug level monitoring (principal); Z79.01 Long term (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 of anticoagulants | CPT/HCPCS: 85610; G0463 ==

== ENCOUNTER 2024-05-15 08:42 | Day surgery (SDC) | payer OTHER, SELFPAY ==
[2024-05-15 08:56] VITALS: BP 130/69; PULSE 74; TEMP 36.5; O2SAT 98
[2024-05-15 09:06] LABS: INR 2.71
[2024-05-15 09:31] VITALS: BP 122/71; PULSE 64; O2SAT 94
[2024-05-15] MEDS: 0.9 % SODIUM CHLORIDE 10 ML SYRINGE - SALINE FLUSH INJ (09:35)
[2024-05-15] MEDS: BUPIVACAINE HCL 0.25% PF 25 MG/10 ML VIAL INJ (09:36)
[2024-05-15] MEDS: LIDOCAINE HCL 2% 400 MG/20 ML MDV INJ (09:36)
[2024-05-15] MEDS: IOHEXOL 240 MG/ML - 10 ML VIAL 24 MG INJ (09:36)
[2024-05-15] MEDS: TRIAMCINOLONE ACETONIDE 40 MG/ML VIAL 80 MG INJ (09:37)
--- NOTE | 2024-05-15 09:37 | P.ON_ITS ---
Date of procedure: 05/15/24 Pre-op diagnosis: Pain due to lumbar stenosis with neurogenic claudication Post-op diagnosis: same as pre-op Procedure: Procedure: Right L3-4, 4-5 transforaminal epidural steroid injection Medications: Bupivacaine 0.25% 2cc, lidocaine 2% 1cc, kenalog 80mg The patient was seen and examined in the preoperative holding area.? Informed consent was obtained and placed on the chart.? Patient was brought to the medical procedure unit and placed in the prone position where a timeout was completed verifying the correct patient, procedure site, position, and planned special equipment using sterile aseptic technique.? Under direct fluoroscopic visualization a 25-gauge Quincke tipped spinal needle was advanced to the designated neural foramen where contrast dye was injected to show adequate spread.? The needle was inserted at level right L3-4. There was no evidence of vascular or adverse uptake.? Epidural spread was appreciated.? The above- mentioned injectate was then placed in a 1.5 mL aliquot preceded by negative aspiration.? The needle was removed. The needle was inserted and the procedure repeated at level right L4-5.? The surgery site was covered.? Patient was taken to the postprocedural recovery area and monitored for an appropriate length of time before found suitable for discharge in the accompaniment of a responsible adult. Anesthesia: Local Surgeon: Keith Parks Pathology: none sent Condition: stable Disposition: no change
[2024-05-15 09:38] VITALS: BP 118/69; PULSE 65; O2SAT 94
--- NOTE | 2024-05-15 09:41 | PC.NURSE ---
Upon standing pts legs felt unsteady. Pt was placed in wheelchair and observed until able to ambulate with a steady gait.
== END 2024-05-15 10:02 | disposition home or self-care (01) ==
LOC: SURGOUT 08:43
PROVIDERS: PCP Internal Medicine; Visit Provider Anesthesiology
DX: M48.062 Spinal stenosis, lumbar region with neurogenic claudication (principal); Z79.01 Long term (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 of anticoagulants
CPT/HCPCS: 36415; 64483; 64484; 85610; J0665; J3301; Q9966

== ENCOUNTER 2024-06-05 08:49 | Day surgery (SDC) | payer OTHER, SELFPAY ==
[2024-06-05 09:25] LABS: INR 2.29; Prothrombin Time 22.4 sec (9.0-11.6)
[2024-06-05 09:54] VITALS: BP 121/67; PULSE 62; TEMP 36.7; O2SAT 100
[2024-06-05 10:33] VITALS: BP 123/60; BP 139/65; PULSE 74; PULSE 79; O2SAT 97
--- NOTE | 2024-06-05 10:33 | W.PM.PROCNOT ---
Date of procedure: 06/05/24 Pre-op diagnosis: Pain due to right sacroiliitis Post-op diagnosis: same as pre-op Procedure: Procedure: Right sacroiliac joint injection Medications: Bupivacaine 0.25% 2cc, kenalog 40mg After informed consent was obtained, the patient was brought to the medical procedure unit and placed in the prone position, when a timeout was completed verifying correct patient, procedure, site, positioning, implant, and/or special equipment.? The skin overlying the area was prepped and draped in standard sterile fashion using alcohol.? A 25-gauge needle was inserted towards the right sacroiliac joint under direct fluoroscopic imaging.? Needle tip was advanced until the joint was encountered.? We instilled a total of 2 mL of solution.? Postoperatively needles were removed.? The patient tolerated the procedure well without complication.? The patient reported reduction in pain symptoms postoperatively. Anesthesia: Local Surgeon: Keith Parks Pathology: none sent Condition: stable Disposition: no change
[2024-06-05] MEDS: BUPIVACAINE HCL 0.25% PF 25 MG/10 ML VIAL 2 ML INJ (10:36)
[2024-06-05] MEDS: LIDOCAINE HCL 2% 400 MG/20 ML MDV INJ (10:36)
[2024-06-05] MEDS: IOHEXOL 240 MG/ML - 10 ML VIAL 24 MG INJ (10:36)
[2024-06-05] MEDS: TRIAMCINOLONE ACETONIDE 40 MG/ML VIAL INJ (10:36)
== END 2024-06-05 10:38 | disposition home or self-care (01) ==
PROVIDERS: PCP Internal Medicine; Visit Provider Anesthesiology
DX: M46.1 Sacroiliitis, not elsewhere classified (principal); R52 Pain, unspecified; Z79.01 Long term (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 of anticoagulants
CPT/HCPCS: 27096; 36415; 85610; J0665; J3301; Q9966

== ENCOUNTER 2024-06-15 00:30 | Outpatient (RCR) | payer OTHER, SELFPAY | END 2024-07-14 09:29 | disposition home or self-care (01) | LOC: MM 00:30 | PROVIDERS: PCP Internal Medicine; Visit Provider Internal Medicine | DX: Z51.81 Encounter for therapeutic drug level monitoring (principal); Z79.01 Long term (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 of anticoagulants | CPT/HCPCS: 85610; G0463 ==

== ENCOUNTER 2024-06-15 09:04 | Outpatient (OUT) | payer OTHER, SELFPAY ==
--- OUTSIDE RECORDS SUMMARY | 2024-06-15 09:15 | XMS_ITS | CCD ---
Author Organization [facility] Care Team Providers Care Electroformer Name Role Phone Bertram Sanders Unavailable Broderick [...] Unavailable Ball, DO Broderick Primary Care Provider [phone] Lee, DO Villafana Attending Provider [phone] Blades, Niki Unavailable MD Niki Weeks Attending Provider Pascual Vidla MD, Kitty Unavailable Un available BELLMIRIAN MCGINNIS Attending Unavailable BALL, BRODERICK E Primary Care Unavailable BALL, BRODERICK E Primary Care Unavailable Ball DO, Broderick Quinteros Primary Care Provider ALEJANDRO VILLAR Attending Unavailable BALL, BRODERICK E Primary Care Unavailable RANDA REILLY Attending Unavailable LAUREN OTERO Referring Unavailable BALL, BRODERICK E Primary Care Unavailable Ball, DO Villafana Primary Care Provider [phone] Lee, DO Villafana Attending Provider WILIAN Mcfadden Attending Provider Blades, Niki A Admitting Unavailable Blades, Niki A Attending Unavailable Ball, Broderick Primary Care Unavailable Blades, Niki A Admitting Unavailable Ball, Broderick Primary Care Unavailable Blades, Niki A Attending Unavailable Blades, Niki A Admitting Unavailable Blades, Niki A Attending Unavailable Ball, Broderick Primary Care Unavailable Ball, Broderick Admitting Unavailable Ball, Broderick Primary Care Unavailable Ball, Broderick Attending Unavailable Ball, Broderick Primary Care Unavailable Ball, Broderick Attending Unavailable Ball, Broderick Admitting Unavailable Ball, Broderick Primary Care Unavailable Ball, Broderick Attending Unavailable Broderick Howard Admitting Unavailable Lee, Broderick Primary Care Unavailable David Mcfadden Admitting Unavailable David Mcfadden Attending Unavailable DO Broderick Howard Primary Care Provider DO Broderick Howard Attending Provider Kasey PAUL, Keith Barron Attending Unavailable Kasey PAUL, Keith Barron Attending Unavailable DAVID MCFADDEN Attending Unavailable DAVID MCFADDEN Referring Unavailable DAVID MCFADDEN Referring Unavailable JR. SALTER GEORGE C Attending Unavaila ble Allergies Allergy Classification Reported Allergen(s) Allergy Type Date of Onset Reaction(s) Facility (20 sources) Dexamethasone; Translations: [DEXAMETHASONE] Drug Allergy 10-03-20 15 [facility] (20 sources) pregabalin; Translations: [PREGABALIN] Drug Allergy 08-24-20 13 [facility] (20 sources) rifAXIMin Drug Allergy 02-09-20 24 [facility] (1 source) Dexamethasone Drug Allergy [facility] (1 source) pregabalin Drug Allergy 11-15-19 08 [facility] (13 sources) Dexamethasone Drug Allergy 02-08-20 24 Unknown, Unknown Reaction [facility] (8 sources) Allergies Reconciled Propensity to adverse reactions Unknown [facility] Other (8 sources) patient allergy list reviewed by nurse or physicia Propensity to adverse reactions 04-13-20 Comment:Done [employer] [facility] Other (1 source) Dexamethasone Drug Allergy 01-06-20 21 [facility] (1 source) pregabalin Drug Allergy 01-06-20 21 [facility] Medications Current Medications Medication Drug Class(es) Dates Sig (Normalized) Sig (Original) amitriptyline hydrochloride 10 mg oral tablet (20 sources) Tricyclic Antidepressant Start: 06-08-2024 take 25 mg by mouth once daily at bedtime Amitriptyline Active 25 MG PO Daily at bedtime June 08, 2024 2:28pm Start: 07-20-2023 End: 06-08-2024 take 15 mg by mouth once daily at bedtime Amitriptyline Discontinued 15 MG PO Daily at bedtime July 20, 2023 12:00am June 08, 2024 2:32pm Start: 01-07-2023 Amitriptyline HCl 10 MG 2 [...] 25 mg by mouth daily at bedtime. amoxicillin 875 mg / clavulanate 125 mg oral tablet (1 source) Penicillin-class Antibacterial Start: take 1 tablet by mouth every twelve hours Amoxicillin-Pot Clavulanate 875-125 MG 1 tablet Orally every 12 hrs for 7 days Nov, Active carvedilol 12.5 mg oral tablet (20 sources) alpha-Adrenergic Dylan, beta-Adrenergic Dylan Start: 4 take 1 tablet by mouth twice daily Carvedilol Active 0 .ROUTE .COMPLEX 180 May 24, 2024 6:47am TAKE 1 TABLET BY MOUTH TWICE A DAY Start: 07-20-2023 End: 05-24-2024 take 12.5 mg by mouth twice daily Carvedilol Discontinued 12.5 MG PO Twice daily February 08, 2024 12:00am May 24, 2024 6:47am Comment on above: Take 12.5 mg by mout h twice daily with meals. cephalexin 500 mg oral tablet (5 sources) Cephalosporin Antibacterial Start: 023 take 1 capsule by mouth twice daily Keflex 500 MG 1 capsule Orally bid for 7 days Jul, Active dicyclomine hydrochloride 20 mg oral tablet (9 sources) Anticholinergic Start: 023 take 1 tablet by mouth twice daily as needed for pain Dicyclomine HCl 20 MG 1 tablet Orally twice daily as needed for ABD pain for 30 days Apr, Active levETIRAcetam 750 mg oral tablet (20 sources) [...] a day linaclotide 0.072 mg oral capsule (20 sources) Guanylate Cyclase-C Agonist Start: 02-08-2024 End: 06-08-2024 take 72 ug by mouth once daily Linaclotide Active 72 MCG PO Daily June 08, 2024 2:32pm Start: 01-07-2023 Linzess 72 MCG 1 capsule [...] morning 90 90 February 02, 2024 1:09pm omeprazole 40 mg delayed release oral capsule [...] (20 sources) Serotonin-3 Receptor Antagonist Start: take 1 tablet by mouth every six hours as needed for nausea Ondansetron Active 0 .ROUTE .COMPLEX 12 June 06, 2024 8:49am DISSOLVE 1 TABLET IN MOUTH EVERY 6 HOURS NEEDED FOR NAUSEA Start: 11-25-2020 End: 06-06-2024 take 4 mg by mouth every eight hours Ondansetron Discontinued 4 MG PO Q8H January 06, 2021 1:00am June 06, 2024 8:49am take 1 tablet by rais th every six hours as needed for nausea Ondansetron 4 MG DISSOLVE 1 TABLET IN MOUTH EVERY 6 HOURS NEEDED FOR NAUSEA for 3 Active Ondansetron HCl 4 MG 1 tablet on the tongue and allow to dissolve Orally PRN PRN Active traMADol hydrochloride 50 mg oral tablet (18 sources) Opioid Agonist Start: 03-29-2024 End: 04-13-2024 [...] CAPSULE BY MOUTH EVERY DAY Start: 02-08-2024 End: 06-08-2024 take 75 mg by mouth once daily Venlafaxine Discontinue d 75 MG PO Daily February 08, 2024 12:00am June 08, 2024 2:30pm Start: 07-20-2023 End: 02-23-2024 take 150 mg [...] Sig (Original) acetaminophen 500 mg oral capsule (7 sources) Start: 07-20-2023 End: 02-08-2024 take 2 [...] mg by mouth one time a week. amLODIPine 5 mg oral tablet (20 sources) Dihydropyridine Calcium Channel Dylan Start: 02-08-2024 End: 06-08-2024 take 5 mg by mouth once daily Amlodipine Discontinued 5 MG PO Daily February 08, 2024 12:00am June 08, 2024 2:29pm Start: 06-23-2022 End: 02-02-2024 take 5 mg [...] 5 mg by mouth o nce daily. onabotulinumtoxina 100 unt injection (2 sources) Acetylcholine Release Inhibitor Start: 05-23-2024 End: 05-23-2024 onabotulinum toxin type A 200 Units injection (BOTOX) Start: 05-23-2024 End: 05-23-2024 onabotulinum toxin type A 20 0 Units injection (BOTOX) 1 ml enoxaparin sodium 100 mg/ml prefilled syringe (6 sources) Low Molecular Weight Heparin Start: 08-03-2023 End: 06-08-2024 Enoxaparin (Lovenox) 100 mg/mL Syringe Discontinued 90 MG SUBCUT Daily August 03, 2023 12:00am June 08, 2024 2:29pm hydrALAZINE hydrochloride 50 mg oral tablet (9 sources) Arteriolar Vasodilator Start: 01-06-2021 End: 07-20-2023 Hydralazine Discontinued 50 MG PO As Directed January 06, 2021 1:00am July 20, 2023 11:41am melatonin 5 mg oral tablet (9 sources) Start: 01-06-2021 End: 07-20-2023 take 5 mg by mouth at bedtime Melatonin Discontinued 5 MG PO Bedtime January 06, 2021 1:00am July 20, 2023 11:48am mupirocin 0.02 mg/mg topical ointment (20 sources) RNA Synthetase Inhibitor Antibacterial Start: 02-08-2024 End: 06-08-2024 Mupirocin Discontinued 1 APPLIC TOPICAL Twice daily February 08, 2024 12:00am June 08, 2024 2:30pm Mupirocin 2 % 1 application Externally Twice a day Not-Taking/PRN naproxen sodium 220 mg oral tablet (12 sources) Nonsteroidal Anti-inflammatory Drug Start: 01-06-2021 End: [...] nee ded. tiZANidine 4 mg oral tablet (6 sources) Central alpha-2 Adrenergic Agonist Start: 08-05-2023 [...] Active Problems Problem Classification Problem Date Documented Date Episodic/Chronic Abdominal pain (20 sources) Abdominal pain; Translations: [Unspecified abdominal pain] Onset: 4 02-08-2024 Episodic Acute bronchitis (8 sources) Acute bronchitis; Translations: [Acute bronchitis due to other specified organisms] Episodic Anxiety disorders (20 sources) Anxiety; Translations: [Anxiety disorder, unspecified] Onset: 8 06-21-2018 Chronic Asthma (13 sources) Asthma without status asthmaticus; Translations: [Asthma, unspecified, unspecified status] Onset: 4 02-08-2024 Chronic Biliary tract disease (1 source) Disorder of gallbladder; Translations: [Disease of gallbladder, unspecified] 02-08-2024 Episodic Cancer of other GI organs; peritoneum (14 sources) Carcinoma of ampulla of Vater; 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] Onset: 1 03-10-2011 Chronic Cancer of other GI organs; peritoneum (20 sources) History of cancer of ampulla of duodenum; Translations: [Personal history of malignant neoplasm of other digestive organs] Onset: 4 Episodic Cancer of pancreas (20 sources) Malignant tumor of pancreas; Translations: [Malignant neoplasm of pancreas, unspecified] Onset: 1 05-14-2015 Chronic Cardiac dysrhythmias (15 sources) Sinus node dysfunction; Translations: [Sick sinus syndrome] Onset: 5 07-11-2015 Chronic Chronic kidney disease (20 sources) Chronic kidney disease stage 3B ; Translations: [Stage 3b chronic kidney disease] Onset: 2 02-14-2024 Chronic Conditions associated with dizziness or vertigo (20 sources) Benign paroxysmal positional vertigo; Translations: [Benign paroxysmal vertigo, left ear] Resolved: 2 Episodic Conduction disorders (20 sources) Cardiac pacemaker in situ; Translations: [Presence of cardiac pacemaker] Onset: 5 11-10-2021 Chronic Diseases of white blood cells (2 sources) Leukopenia; Translations: [Decreased white blood cell count, unspecified] 06-08-2024 Chronic Epilepsy; convulsions (20 sources) Partial epilepsy with impairment of consciousness; Translations: [Localization-related (focal) (partial) symptomatic epilepsy and epileptic syndromes with complex partial seizures, intractable, without status epilepticus] Onset: 4 08-19-2015 Chronic Esophageal disorders (20 sources) Esophageal reflux finding; Translations: [Esophageal reflux] Onset: 4 02-08-2024 Chronic Esophageal disorders (16 sources) Esophageal disorders; Translations: [Gastroesophageal reflux disease with esophagitis without hemorrhage] Essential hypertension (20 sources) Hypertensive disorder; Translations: [Essential (primary) hypertension] Onset: 4 08-19-2015 Chronic Headache; including migraine (20 sources) Migraine; Translations: [Migraine, unspecified, not intractable, without status migrainosus] Onset: 4 01-24-2015 Chronic Hypertension with complications and secondary hypertension (20 sources) Chronic kidney disease due to hypertension; Translations: [Hypertensive chronic kidney disease with stage 1 through stage 4 chronic kidney disease, or unspecified chronic kidney disease] Onset: 2 Chronic Immunizations and screening for infectious disease (9 sources) Encounter for immunization; Translations: [Vaccination given] Onset: 2 Episodic Malaise and fatigue (1 source) Fatigue; Translations: [Chronic fatigue, unspecified] Chronic Menopausal disorders (17 sources) Postmenopausal bleeding; Translations: [Postmenopausal bleeding] Onset: 6 02-08-2024 Chronic Miscellaneous mental health disorders (8 sources) Non-organic sleep disorder; Translations: [Nonorganic sleep disorder, unspecified] Onset: 4 Chronic Mood disorders (20 sources) Depressive disorder; Translations: [Depression] Onset: 5 08-19-2015 Chronic Nonspecific chest pain (20 sources) Tight chest; Translations: [Other chest pain] 02-08-2024 Episodic Nutritional deficiencies (20 sources) Vitamin D deficiency; Translations: [Vitamin D deficiency, unspecified] 02-08-2024 Chronic Osteoarthritis (5 sources) Arthritis; Translations: [Unspecified osteoarthritis, unspecified site] 02-08-2024 Chronic Osteoporosis (20 sources) Osteoporosis; Translations: [Age-related osteoporosis without current pathological fracture] Chronic Other aftercare (16 sources) H/O: high risk medication; Translations: [Other fpc (current) drug therapy] Episodic Other aftercare (20 sources) Long-term current use of anticoagulant; Translations: [nursing home (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 of anticoagulants] Onset: 4 02-08-2024 Episodic Other aftercare (5 sources) Encounter for therapeutic drug level monitoring; Translations: [ENC THERAPEUTC DRUG LEVL MONITORING] Onset: 3 Episodic Other aftercare (1 source) intermediate frame tender (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 of anticoagulants; Translations: [RETIREMENT CURRNT USE ANTICOAGULANTS] Onset: 3 Episodic Other aftercare (8 sources) Long-term current use of drug therapy; Translations: [Other fpc (current) drug therapy] Episodic Other aftercare (1 source) Drug therapy finding; Translations: [Other 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 (current) drug therapy] 02-08-2024 Episodic Other and ill-defined heart disease (1 source) Heart disease; Translations: [Heart disease, unspecified] 02-08-2024 Chronic Other and unspecified benign neoplasm (17 sources) History of polyp of colon; Translations: [Personal history of colonic polyps] Episodic Other bone disease and musculoskeletal deformities (8 sources) Disorder of bone; Translations: [Disorder of bone, unspecified] Episodic Other circulatory disease (14 sources) Inferior vena cava filter in situ; Translations: [Presence of other vascular implants and grafts] Onset: 3 03-09-2013 Chronic Other connective tissue disease (16 sources) Unspecified rotator cuff tear or rupture of left shoulder, not specified as traumatic; Translations: [Traumatic rupture of tendon of left supraspinatus muscle (disorder)] Episodic Other connective tissue disease (20 sources) Adhesive capsulitis of left shoulder; Translations: [Adhesive capsulitis of left shoulder] 02-08-2024 Episodic Other connective tissue disease (2 sources) Arthrodesis status Episodic Other connective tissue disease (8 sources) Nontraumatic rupture of rotator cuff of left shoulder; Translations: [Unspecified rotator cuff tear or rupture of left shoulder, not specified as traumatic] Episodic Other connective tissue disease (2 sources) Trochanteric bursitis; Translations: [Trochanteric bursitis, right hip] 04-21-2024 Episodic Other connective tissue disease (2 sources) Trochanteric bursitis, right hip; Translations: [Enthesopathy of hip region] 04-21-2024 Episodic Other connective tissue disease (1 source) Pain in leg, unspecified; Translations: [Pain in leg, unspecified] Onset: Episodic Other diseases of kidney and ureters (1 source) Secondary hyperparathyroidism; Translations: [Secondary hyperparathyroidism of renal origin] 06-08-2024 Chronic Other diseases of kidney and ureters (1 source) Secondary hyperparathyroidism of renal origin; Translations: [Secondary hyperparathyroidism (of renal origin)] 06-08-2024 Chronic Other diseases of kidney and ureters (1 source) Kidney disease; Translations: [Disorder of kidney and ureter, unspecified] 02-08-2024 Episodic Other gastrointestinal disorders (18 sources) Irritable bowel syndrome characterized by constipation; [...] of falling] Episodic Other nervous system disorders (4 sources) Postoperative pain ; Translations: [Other acute postprocedural pain] 03-03-2024 Episodic Other nervous system disorders (1 source) Other acute postprocedural pain; Translations: [Other acute postprocedural pain] Onset: Episodic Other nutritional; endocrine; and metabolic disorders (20 sources) Obesity; Translations: [Obesity, unspecified] Chronic Other upper respiratory infections (17 sources) Acute maxillary sinusitis; Translations: [Acute maxillary sinusitis, unspecified] Episodic Residual codes; unclassified (14 sources) Insomnia; Translations: [Other insomnia] Onset: 8 06-21-2018 Chronic Residual codes; unclassified (20 sources) Obstructive sleep apnea syndrome; Translations: [Obstructive sleep apnea (adult) (pediatric)] 02-08-2024 Chronic Residual codes; unclassified (5 sources) Obstructive sleep apnea (adult) (pediatric); Translations: [...] Localized edema; Translations: [Localized edema] 02-08-2024 Episodic Residual codes; unclassified (2 sources) History of operative procedure on lumbar spinal structure; Translations: [Other specified postprocedural states] 04-21-2024 Episodic Residual codes; unclassified (2 sources) Other specified postprocedural states; Translations: [Personal history of surgery to other organs] 04-21-2024 Episodic Retinal detachments; defects; vascular occlusion; and retinopathy (16 sources) Retinal hemorrhage; 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, bilateral] Chronic Spondylosis; intervertebral disc disorders; other back problems (20 sources) Cervical spondylosis; Translations: [Spondylosis without myelopathy or radiculopathy, cervical region] Onset: 4 Chronic Spondylosis; intervertebral disc disorders; other back problems (20 sources) Thoracic and lumbosacral neuritis; Translations: [Thoracic or lumbosacral neuritis or radiculitis, unspecified] Onset: 4 Resolved: 1 Episodic Spondylosis; intervertebral disc disorders; other back problems (1 source) Spondylosis; intervertebral disc disorders; other back problems; Translations: [Other spondylosis with radiculopathy, lumbosacral region] Onset: 3 Thyroid disorders (20 sources) Thyroid nodule; Translations: [Nontoxic single thyroid nodule] Chronic Unclassified (3 sources) LOW BACK PAIN, UNSPECIFIED; Translations: [LOW BACK PAIN, UNSPECIFIED] Onset: 3 Unclassified (8 sources) Exposure to acute respiratory syndrome coronavirus 2; Translations: [Contact with and (suspected) exposure to COVID-19] Unclassified (1 source) Low back pain, unspecified; Translations: [Low back pain, unspecified] Onset: 4 Unclassified (1 source) Spinal stenosis, lumbar region with neurogenic claudication; Translations: [Spinal stenosis, lumbar region with neurogenic claudication] Onset: 3 Unclassified (1 source) Encounter for preprocedural laboratory examination; Translations: [Encounter for preprocedural laboratory examination] Onset: 3 Viral infection (4 sources) COVID-19; Translations: [COVID-19] Onset: 2 Past or Other Problems Problem Classification Problem Date Documented Da te Episodic/Chronic Blindness and vision defects (14 sources) Homonymous hemianopia; Translations: [Homonymous bilateral field defects, unspecified side] Onset: 10-08-2015 10-08-2015 Episodic Cardiac dysrhythmias (15 sources) Bradycardia; Translations: [Bradycardia, unspecified] Onset: 05-14-2015 05-14-2015 Episodic Chronic kidney disease (4 sources) Chronic kidney disease; Translations: [CHRONIC KIDNEY DISEASE STAGE 3A] Onset: 08-12-2022 Complication of device; implant or graft (14 sources) Complication of intravascular line; Translations: [Unspecified [...] unspecified] Onset: 04-13-2019 02-08-2024 Episodic Epilepsy; convulsions (11 sources) Seizure; Translations: [Other convulsions] Onset: 01-24-2015 [...] articular cartilage] Resolved: 07-30-2021 Episodic Other aftercare (14 sources) Anticoagulant effect; Translations: [intermediate frame tender (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 of anticoagulants] Onset: 05-14-2015 05-14-2015 Episodic Other aftercare (1 source) Other 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 (current) drug therapy; Translations: [OTH [place] [place] ASSESSOR CURRENT DRUG THERAPY] Onset: 08-04-2022 Episodic Other [...] Resolved: 03-03-2022 Episodic Other connective tissue disease (14 sources) Pain in limb; Translations: [Pain in unspecified limb] Onset: 03-13-2019 03-13-2019 Episodic Other connective tissue disease (14 sources) Pain in left arm; Translations: [Pain [...] unspecified] Resolved: 07-24-2020 Episodic Other eye disorders (14 sources) Hypertropia of right eye; 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, right eye] Onset: 10-08-2015 10-08-2015 Episodic Other liver diseases (14 sources) Alkaline phosphatase raised; Translations: [Abnormal levels of other serum enzymes] Onset: 05-14-2015 05-14-2015 Episodic Other nervous system disorders (8 sources) Impaired cognition; Translations: [Other symptoms and signs involving cognitive functions and awareness] Resolved: 01-25-2022 Episodic Other nervous system disorders (13 sources) Paresthesia; Translations: [Paresthesia of skin] Onset: 01-05-2019 02-08-2024 Episodic Other non-traumatic joint disorders (8 sources) Shoulder joint pain; Translations: [Pain in left shoulder] Resolved: 07-24-2020 Episodic Other nutritional; endocrine; and metabolic disorders (14 sources) Abnormal weight loss; Translations: [Abnormal weight [...] Onset: 03-09-2013 05-14-2015 Episodic Residual codes; unclassified (14 sources) Family history of malignant neoplasm of [...] Test Name Value Interpretation Reference Range Facility INR in Platelet poor plasma by Coagulation assayon 06-05-2024 INR Coag (PPP) [Relative time] 2.29 {INR} [facility] Comment on above: DESIRED INR:2.0-3.0 CONDITIONS NOT LISTED BELOW2.5-3.5 FOR PROSTHETIC HEART VALVE REPLACEMENT2.5-3.5 RECURRENT THROMBOSIS Prothrombin time (PT)on 05-16 PT Coag (PPP) [Time] 22.4 s High 9.0-11.6 [facility] ISTAT XRay CREon 05-30-2024 ISTAT GFR 29.200 Normal [facility] Comment on above: Result Comment: PERF ORMED BY: [place] [address] PATHOLOGIST [employer] LELE FALK M.D. Performed By: #### I SCRE #### [address] MR lumbar spine wo conon MR lumbar spine wo con [place] [address] MRI Report Signed Patient: Cassi Rodrigez MR#: [id number] 8 : 1950 Acct:[id number] Age/Sex: 74 / F ADM Date: 05/30/24 Loc: MR Room: Type: [facility] Attending Dr: David Mcfadden PA-C Copies to: David Mcfadden PA-C Ordering Provider: David Mcfadden PA-C Date of Service: 05/30/24 MR/MR lumbar spine wo con: M54.16 MRI Lumbar Spine withoutcontrast TECHNIQUE: Multiplanar T1 and T2-weighted imaging of lumbar spine obtained without contrast. HISTORY: Chronic back pain with radiation down the legs. Injections 2 months ago. Temporary relief. COMPARISON: 03/28/2024 The last fully segmented vertebral pair is operationally defined as L5/S1. POST SURGERY CHANGES: None BONE MARROW INFILTRATION: None BONE MARROW EDEMA: None BONY ALIGNMENT: Adequate bony alignment identified. SPINAL CANAL: No significant central canal narrowing. LUMBAR FRACTURE: None BONY LESIONS: None KIDNEYS: No hydronephrosis is identified. The right renal atrophy AORTA: No aortic aneurysm is seen. CONUS MEDULLARIS : The distal spinal cord is in adequate position without abnormality. Additional findings CONJOINED NERVE ROOT: None Lower thoracic level: Unremarkable L1-2 :Broad-based disc bulge with endplate spurring. Mild central canal narrowing. Mild bilateral neural foraminal narrowing. L2-3: Broad-based disc bulge. Posterior element hypertrophy. Moderate central canal stenosis. Moderate to severe left and moderate right neural foraminal narrowing. L3-4: Broad-based diffuse disc bulge. Posterior element hypertrophy. Mild to moderate central canal stenosis. Moderate bilateral neural foraminal narrowing greater on the right. L4-5: Posterior decompression changes. Circumferential degenerative disc bulge. Facet hypertrophy. Mild central canal stenosis. Severe right and moderate left neural foraminal narrowing. L5-S1: Posterior decompression and intervertebral effusion. Facet hypertrophy. Mild bilateral neural foraminal narrowing. No central canal narrowing. MR/MR lumbar spine wo con IMPRESSION: Similar multilevel discovertebral degenerative changes. Similar levels of mild central canal stenosis and neural foraminal narrowing. Pre-MRI plain film assessment: None Impression dictated by: Rico John M.D.05/30/2024 10:27 AM Dictation Location: [place] [id number] Transcribed By: [facility] 05/30/24 1027 Dictated By: Rico John DO 05/30/24 1006 Signed By: 05/30/24 1027 [facility] No Panel InformationOrdered By: David Mcfadden on 05-30-2024 Bedside Estimated GFR (eGFR) 29.200 [facility] Whole blood creatinine measu rementOrdered By: David Mcfadden on 05-30-2024 Creatinine [Mass/Vol] 1.8 mg/dL High 0.6-1.3 [facility] Comment on above: ER/ESD physician is notified/shown all ISTAT results.Critical values may be confirmed by laboratory testing ifdeemed necessary by ER attending doctor. Result Comment: ER/E SD physician is notified/shown all ISTAT results. Critical values may be confirmed by laboratory testing if deemed necessary by ER attending doctor. Performed By: #### I SCRE #### [facility] [address] [place] [address] INR in Platelet poor plasma by Coagulation assayon 05-15-2024 INR Coag (PPP) [Relative time] 2.71 {INR} [facility] Comment on above: DESIRED INR:2.0-3.0 CONDITIONS NOT LISTED BELOW2.5-3.5 FOR PROSTHETIC HEART VALVE REPLACEMENT2.5-3.5 RECURRENT THROMBOSIS Prothrombin time (PT)on PT Coag (PPP) [Time] 26.0 s High 9.0-11.6 [facility] Basophils Auto (Bld) [#/Vol] on 05-05-2024 Basophils (Bld) [#/Vol] 0.0 10 3/uL 0.0-0.1 [facility] Basophils/100 WBC Auto (Bld) on 05-05-2024 Basophils/100 WBC (Bld) 1.1 % 0.2-2.0 F [facility] Eosinophils/100 WBC Auto (Bl d)on 05-05-2024 Eosinophils/100 WBC (Bld) 6.9 % 0.9-7.0 [facility] Erythrocyte distribution wid th Auto (RBC) [Ratio]on 05-05-2024 Erythrocyte distribution width (RBC) [Ratio] 13.3 % 11.0-15.0 [facility] Estimated glomerular filtrat ion rate (GFR) non- Americanon 05-05-2024 GFR/1.73 sq M.predicted among non-blacks MDRD (S/P/Bld) [Vol rate/Area] 32 mL/min/{1.73_m2} Low >=60 [facility] Hematocrit Auto (Bld) [Volum e fraction]on 05-05-2024 Hematocrit (Bld) [Volume fraction] 35.5 % Low 36.0-48.0 [facility] Hemoglobin [Mass/volume] in Bloodon 05-05-2024 Hemoglobin (Bld) [Mass/Vol] 11.1 g/dL Low 12.0-16.0 [facility] Laboratory - Chemistry and C hemistry - challengeon 05-05-2024 Calcium [Mass/Vol] 8.4 mg/dL Low 8.5-10.1 [facility] Chloride [Moles/Vol] 108 mmol/L High 98-107 [facility] CO2 [Moles/Vol] 26.2 mmol/L 21.0-32.0 [facility] Creatinine [Mass/Vol] 1.60 mg/dL High 0.55-1.02 [facility] GFR/1.73 sq M.predicted MDRD (S/P/Bld) [Vol rate/Area] 38 mL/min/{1.73_m2} Low >=60 [facility] Glucose [Mass/Vol] 103 mg/dL 74-106 [facility] Potassium [Moles/Vol] 4.4 mmol/L 3.5-5.1 [facility] Sodium [Moles/Vol] 140 mmol/L 136-145 [facility] Urea nitrogen [Mass/Vol] 24.0 mg/dL High 7.0-18.0 [facility] Urea nitrogen/Creatinine [Mass ratio] 15.0 mg/mg [facility] Laboratory - Hematology and Cell countson 05-05-2024 ESR (Bld) [Velocity] 45 mm/h High <=30 [facility] Immature granulocytes/100 WBC (Bld) 0.0 % 0.0-0.5 [facility] Leukocytes [#/volume] correc tanesha for nucleated erythrocytes in Blood by Automated counon 05-05-2024 WBC corrected for nucl RBC Auto (Bld) [#/Vol] 3.8 10 3/uL Low 4.0-11.0 [facility] Lymphocytes Auto (Bld) [#/Vo l]on 05-05-2024 Lymphocytes (Bld) [#/Vol] 1.0 10 3/uL Low 1.2-3.8 [facility] Lymphocytes/100 WBC Auto (Bl d)on 05-05-2024 Lymphocytes/100 WBC (Bld) 27.1 % 20.5-60.0 [facility] MCH Auto (RBC) [Entitic mass ]on 05-05-2024 MCH (RBC) [Entitic mass] 28.8 pg 26.7-34.0 [facility] MCHC Auto (RBC) [Mass/Vol]on 05-05-2024 MCHC (RBC) [Mass/Vol] 31.3 g/dL 29.9-35.2 [facility] MCV Auto (RBC) [Entitic vol] on 05-05-2024 MCV (RBC) [Entitic vol] 92.2 fL 81.0-99.0 F [facility] Monocytes Auto (Bld) [#/Vol] on 05-05-2024 Monocytes (Bld) [#/Vol] 0.3 10 3/uL 0.3-0.8 [facility] Monocytes/100 WBC Auto (Bld) on 05-05-2024 Monocytes/100 WBC (Bld) 8.2 % 1.7-12.0 F [facility] Neutrophils Auto (Bld) [#/Vo l]on 05-05-2024 Neutrophils (Bld) [#/Vol] 2.1 10 3/uL 1.4-6.5 [facility] Neutrophils/100 WBC Auto (Bl d)on 05-05-2024 Neutrophils/100 WBC (Bld) 56.7 % 43.0-75.0 [facility] No Panel Informationon 05-05 C-Reactive Protein, Quantitative <0.50 mg/dL <=0.50 [facility] Eosinophils # (Auto) 0.3 10 3/uL 0.0-0.7 [facility] Immature Granulocyte # (Auto) 0.00 10 3/uL 0.00-0.03 [facility] Platelet mean volume Auto (B ld) [Entitic vol]on 05-05-2024 Platelet mean volume (Bld) [Entitic vol] 9.4 fL Low 9.5-13.5 [facility] Platelets Auto (Bld) [#/Vol] on 05-05-2024 Platelets (Bld) [#/Vol] 217 10 3/uL 150-450 [facility] RBC Auto (Bld) [#/Vol]on RBC (Bld) [#/Vol] 3.85 10 6/uL Low 4.20-5.40 [facility] Serum or plasma anion gap de terminationon 05-05-2024 Anion gap [Moles/Vol] 10.2 mmol/L [facility] MR lumbar spine wo/w conon 0 03-28-2024 MR lumbar spine wo/w con [facility] [address] MRI Report Signed Patient: Cassi Rodrigez MR#: [id number] 8 : 1950 Acct:[id number] Age/Sex: 74 / F ADM Date: 03/28/24 Loc: MR Room: Type: [facility] Attending Dr: Broderick Howard DO Copies to: [...] Arnel Simon M.D.03/28/2024 12:17 PM Dictation Location: [place] [address] Transcribed By: [facility] 03/28/24 1217 Dictated By: Arnel Simon II, MD 03/28/24 1209 Signed By: 03/28/24 1217 Normal [facility] No Panel Informationon 03-15 BLANK _ [facility] Implant Date 05/22/2015 [facility] Model 5076 CapSureFix Nov[employer] [facility] PACEMAKER REMOTE CHECKon AV Delay Adaptive Paced Minimum (ms) 180 ms [facility] AV Delay Adaptive Sensed Minimum (ms) 150 ms [facility] AV Delay Adaptive Status DISABLED [facility] Battery Voltage (volts) 2.92 V [facility] Godfrey RA Pacing Amplitude (volts) 1.5 V [facility] Godfrey RA Pacing Polarity BI [facility] Godfrey RA Pacing Pulse Width (ms) 0.4 ms [facility] Godfrey RA Sensing Amplitude (mvolts) 0.3 mV [facility] Godfrey RA Sensing Blanking Period (ms) 150 ms [facility] Godfrey RA Sensing Polarity BI [facility] Godfrey RA Sensing Refractory Period (ms) Auto [facility] Godfrey RV Pacing Amplitude (volts) 2 V [facility] Godfrey RV Pacing Polarity BI [facility] Godfrey RV Pacing Pulse Width (ms) 0.4 ms [facility] Godfrey RV Sensing Amplitude (mvolts) 0.9 mV [facility] Godfrey RV Sensing Blanking Period (ms) 200 ms [facility] Godfrey RV Sensing Polarity BI [facility] Hysteresis Rate (bpm) DISABLED [facility] Lead1 Mfg MDT [facility] Lead2 Mfg MDT [facility] Location RV [facility] Location RA [facility] Lower Rate (bpm) 60 {beats}/min [facility] Max Sensor Rate (bmp) 130 {beats}/min [facility] Model [id number] COBOS [facility] PM-Device Jorge KELLER [facility] PM-Percent Pacing (A) 99.48 % [facility] PM-Percent Pacing (V) 0.27 % [facility] PM-PMT Intervention ENABLED [facility] PM-PVC Intervention ENABLED [facility] PM-Rate Modulation Acceleration Reaction 30 s [facility] PM-Rate Modulation ADL Rate (bpm) 100 {beats}/min [facility] PM-Rate Modulation Deceleration Exercise [facility] PM-Rate Modulation Threshold MediumLow [facility] RA Bipolar Impedance ohms 418 ohm [facility] RA Unipolar Impedance ohms 399 ohm [facility] RV Bipolar Impedance ohms 532 ohm [facility] RV Unipolar Impedance 494 ohm [facility] Serial Number [id number] [facility] Serial Number [id number] [facility] Serial Number [id number] [facility] Thresh RA Capture Amplitude (volts) 0.5 V [facility] Thresh RA Capture Duration (ms) 0.4 ms [facility] Thresh RA Sensing Amplitude (mvolts) 3.125 mV [facility] Thresh RV Capture Amplitude (volts) 0.875 V [facility] Thresh RV Capture Duration (ms) 0.4 ms [facility] Thresh RV Sensing Amplitude (mvolts) 11.875 mV [facility] Tracking Rate (bpm) 130 {beats}/min [facility] 03/15/2024 Formattin g of this note might [...] CARDIAC DATA AND REPORT, Scanned Documents section. [facility] CNOVon 03-07-2024 CNOV Office Visit (NEADFV ) -- CASSI RODRIGEZ ([id number]) 1950 F Date Time Provider Department 03/07/24 9:00 AM RANDA REILLY NEADFV During your visit today, we recorded the following information about you: Pulse Blood pressure Weight Height 85/minute 133/72 84.5 kg 1.575 m Randa Reilly MD 03/07/2024 1:16 PM Signed PROGRESS NOTE- [facility] DATE: March 07, 2024 Location: [facility] neurological avis Participants: patient, and provider HPI: Here for [...] I spent at least 50% of the [id number] time in counseling, explanation of diagnosis, planning of further management, and answering all questions. Randa Reilly MD [facility] Neurological [place] Referring Provider: LAUREN OTERO [[id number]] Allergies As of Date: 03/07/2024 Noted Allergy [...] sleep apnea) [G47.33] Order(s):[facility] [[id number]] Order #: [id number]: 1 CONSULT TO SLEEP MEDICINE - ADULT [[id number]] Order #: [id number]: 1 FUTURE CONSULT TO [facility] [[id number]] Order #: [id number]: 1 FUTURE Prescriptions as of 03/07/2024 - [...] Noted Resolve (more content not included)... Normal [facility] Albumin [Mass/volume] in Ser um or Plasmaon 03-03-2024 Albumin [Mass/Vol] 3.5 g/dL 2.9-4.4 [facility] Basophils Auto (Bld) [#/Vol] on 03-03-2024 Basophils (Bld) [#/Vol] 0.0 10 3/uL 0.0-0.1 [facility] Basophils/100 WBC Auto (Bld) on 03-03-2024 Basophils/100 WBC (Bld) 0.7 % 0.2-2.0 F [facility] Eosinophils/100 WBC Auto (Bl d)on 03-03-2024 Eosinophils/100 WBC (Bld) 10.8 % High 0.9-7.0 [facility] Erythrocyte distribution wid th Auto (RBC) [Ratio]on 03-03-2024 Erythrocyte distribution width (RBC) [Ratio] 13.5 % 11.0-15.0 [facility] Estimated glomerular filtrat ion rate (GFR) non- Americanon 03-03-2024 GFR/1.73 sq M.predicted among non-blacks MDRD (S/P/Bld) [Vol rate/Area] 34 mL/min/{1.73_m2} Low >=60 [facility] Globulin Calc (S) [Mass/Vol] on 03-03-2024 Globulin (S) [Mass/Vol] 3.6 g/dL F [facility] Hematocrit Auto (Bld) [Volum e fraction]on 03-03-2024 Hematocrit (Bld) [Volume fraction] 38.8 % 36.0-48.0 [facility] Hemoglobin [Mass/volume] in Bloodon 03-03-2024 Hemoglobin (Bld) [Mass/Vol] 11.9 g/dL Low 12.0-16.0 [facility] IgA [Mass/volume] in Serum o r Plasmaon 03-03-2024 IgA [Mass/Vol] 265 mg/dL 64-422 [facility] IgG [Mass/volume] in Serum o r Plasmaon 03-03-2024 IgG [Mass/Vol] 911 mg/dL [id number] [facility] IgM [Mass/volume] in Serum o r Plasmaon 03-03-2024 IgM [Mass/Vol] 64 mg/dL 26-217 [facility] Immunoglobulin light chains. kappa.free [Mass/volume] in Serumon 03-03-2024 Immunoglobulin light chains.kappa.free (S) [Mass/Vol] 44.7 mg/L Abnormal 3.3-19.4 [facility] Immunoglobulin light chains. kappa.free/Immunoglobulin light chains.lambda.free [Yanelis 03-03-2024 Immunoglobulin light chains.kappa.free/Immun oglobulin light chains.lambda.free (S) [Mass ratio] 1.16 0.26-1.65 [facility] Comment on above: Performed at: [address] [id number] Director: Junaid Sawyer PhD, Phone: [phone] Immunoglobulin light chains. lambda.free [Mass/volume] in Serum or Plasmaon 03-03-2024 Immunoglobulin light chains.lambda.free [Mass/Vol] 38.7 mg/L Abnormal 5.7-26.3 [facility] Iron binding capacity [Mass/ volume] in Serum or Plasmaon 03-03-2024 Iron binding capacity [Mass/Vol] 338.0 ug/dL 250.0-450. 0 [facility] Iron saturation [Mass Fracti on] in Serum or Plasmaon 03-03-2024 Iron saturation [Mass fraction] 7.7 % [facility] Laboratory - Chemistry and C hemistry - challengeon 03-03-2024 Albumin [Mass/Vol] 3.3 g/dL Low 3.4-5.0 [facility] ALP [Catalytic activity/Vol] 155 U/L High 46-116 [facility] ALT [Catalytic activity/Vol] 21 U/L 14-59 [facility] AST [Catalytic activity/Vol] 25 U/L 15-37 [facility] Bilirubin [Mass/Vol] 0.4 mg/dL 0.2-1.0 [facility] Calcium [Mass/Vol] 9.0 mg/dL 8.5-10.1 [facility] Chloride [Moles/Vol] 106 mmol/L 98-107 [facility] CO2 [Moles/Vol] 21.4 mmol/L 21.0-32.0 [facility] Cobalamin (Vitamin B12) [Mass/Vol] 495.0 pg/mL 193.0-986. 0 [facility] Creatinine [Mass/Vol] 1.50 mg/dL High 0.55-1.02 [facility] Ferritin [Mass/Vol] 19.0 ng/mL 8.0-252.0 [facility] GFR/1.73 sq M.predicted MDRD (S/P/Bld) [Vol rate/Area] 41 mL/min/{1.73_m2} Low >=60 [facility] Glucose [Mass/Vol] 113 mg/dL High 74-106 [facility] Iron [Mass/Vol] 26.0 ug/dL Low 50.0-170.0 [facility] Potassium [Moles/Vol] 4.3 mmol/L 3.5-5.1 [facility] Protein [Mass/Vol] 6.9 g/dL 6.4-8.2 [facility] Sodium [Moles/Vol] 139 mmol/L 136-145 [facility] Urea nitrogen [Mass/Vol] 25.0 mg/dL High 7.0-18.0 [facility] Urea nitrogen/Creatinine [Mass ratio] 16.7 mg/mg [facility] Laboratory - Hematology and Cell countson 03-03-2024 Immature granulocytes/100 WBC (Bld) 0.0 % 0.0-0.5 [facility] Leukocytes [#/volume] correc tanesha for nucleated erythrocytes in Blood by Automated counon 03-03-2024 WBC corrected for nucl RBC Auto (Bld) [#/Vol] 2.8 10 3/uL Low 4.0-11.0 [facility] Lymphocytes Auto (Bld) [#/Vo l]on 03-03-2024 Lymphocytes (Bld) [#/Vol] 0.8 10 3/uL Low 1.2-3.8 [facility] Lymphocytes/100 WBC Auto (Bl d)on 03-03-2024 Lymphocytes/100 WBC (Bld) 27.6 % 20.5-60.0 [facility] MCH Auto (RBC) [Entitic mass ]on 03-03-2024 MCH (RBC) [Entitic mass] 28.8 pg 26.7-34.0 [facility] MCHC Auto (RBC) [Mass/Vol]on 03-03-2024 MCHC (RBC) [Mass/Vol] 30.7 g/dL 29.9-35.2 [facility] MCV Auto (RBC) [Entitic vol] on 03-03-2024 MCV (RBC) [Entitic vol] 93.9 fL 81.0-99.0 F [facility] Monocytes Auto (Bld) [#/Vol] on 03-03-2024 Monocytes (Bld) [#/Vol] 0.3 10 3/uL 0.3-0.8 [facility] Monocytes/100 WBC Auto (Bld) on 03-03-2024 Monocytes/100 WBC (Bld) 9.7 % 1.7-12.0 [facility] Neutrophils Auto (Bld) [#/Vo l]on 03-03-2024 Neutrophils (Bld) [#/Vol] 1.4 10 3/uL 1.4-6.5 [facility] Neutrophils/100 WBC Auto (Bl d)on 03-03-2024 Neutrophils/100 WBC (Bld) 51.2 % 43.0-75.0 [facility] No Panel Informationon 03-03 Eosinophils # (Auto) 0.3 10 3/uL 0.0-0.7 [facility] Folate 9.50 ng/mL 8.60-58.90 [facility] Immature Granulocyte # (Auto) 0.00 10 3/uL 0.00-0.03 [facility] Protein Electrophoresis M-Miguel Not Observed g/dL Not Observed [facility] Protein Electrophoresis Note Comment . [facility] Comment on above: Protein electrophore sis scan will follow via computer,mail, or lens generator delivery. Platelet mean volume Auto (B ld) [Entitic vol]on 03-03-2024 Platelet mean volume (Bld) [Entitic vol] 9.4 fL Low 9.5-13.5 [facility] Platelets Auto (Bld) [#/Vol] on 03-03-2024 Platelets (Bld) [#/Vol] 203 10 3/uL 150-450 [facility] Protein [Mass/volume] in Ser um or Plasmaon 03-03-2024 Protein [Mass/Vol] 6.2 g/dL 6.0-8.5 [facility] RBC Auto (Bld) [#/Vol]on RBC (Bld) [#/Vol] 4.13 10 6/uL Low 4.20-5.40 [facility] Serum globulin measurement ( mass/volume)on 03-03-2024 Globulin (S) [Mass/Vol] 2.7 g/dL 2.2-3.9 [facility] Serum or plasma albumin/glob ulin mass ratioon 03-03-2024 Albumin/Globulin [Mass ratio] 0.9 {ratio} [facility] Albumin/Globulin [Mass ratio] 1.3 {ratio} 0.7-1.7 [facility] Serum or plasma alpha 1 glob ulin measurement by electrophoresis (mass/volume)on 03-03-2024 Alpha 1 globulin Elph [Mass/Vol] 0.3 g/dL 0.0-0.4 [facility] Serum or plasma alpha 2 glob ulin measurement by electrophoresis (mass/volume)on 03-03-2024 Alpha 2 globulin Elph [Mass/Vol] 0.7 g/dL 0.4-1.0 [facility] Serum or plasma anion gap de terminationon 03-03-2024 Anion gap [Moles/Vol] 15.9 mmol/L [facility] Serum or plasma beta globuli n measurement by electrophoresis (mass/volume)on 03-03-2024 Beta globulin Elph [Mass/Vol] 1.0 g/dL 0.7-1.3 [facility] Serum or plasma gamma globul in measurement by electrophoresis (mass/volume)on 03-03-2024 Gamma globulin Elph [Mass/Vol] 0.8 g/dL 0.4-1.8 [facility] Serum or plasma immunoelectr ophoresis interpretationon 03-03-2024 Interpretation IEP [Interp] Comment . [facility] Comment on above: No monoclonality det ected. Estimated glomerular filtrat ion rate (GFR) non- Americanon 02-10-2024 GFR/1.73 sq M.predicted among non-blacks MDRD (S/P/Bld) [Vol rate/Area] 27 mL/min/{1.73_m2} >=60 [facility] Globulin Calc (S) [Mass/Vol] on 02-10-2024 Globulin (S) [Mass/Vol] 3.7 g/dL F [facility] Laboratory - Chemistry and C hemistry - challengeon 02-10-2024 Albumin [Mass/Vol] 3.3 g/dL 3.4-5.0 [facility] ALP [Catalytic activity/Vol] 174 U/L 46-116 [facility] ALT [Catalytic activity/Vol] 24 U/L 14-59 [facility] Amylase [Catalytic activity/Vol] 16 U/L 25-115 [facility] AST [Catalytic activity/Vol] 19 U/L 15-37 [facility] Bilirubin [Mass/Vol] 0.4 mg/dL 0.2-1.0 [facility] Calcium [Mass/Vol] 8.6 mg/dL 8.5-10.1 [facility] Chloride [Moles/Vol] 107 mmol/L 98-107 [facility] CO2 [Moles/Vol] 26.8 mmol/L 21.0-32.0 [facility] Creatinine [Mass/Vol] 1.81 mg/dL 0.55-1.02 [facility] GFR/1.73 sq M.predicted MDRD (S/P/Bld) [Vol rate/Area] 33 mL/min/{1.73_m2} >=60 [facility] Glucose [Mass/Vol] 85 mg/dL 74-106 [facility] Lipase [Catalytic activity/Vol] 13.0 U/L 16.0-77.0 [facility] Potassium [Moles/Vol] 4.6 mmol/L 3.5-5.1 [facility] Protein [Mass/Vol] 7.0 g/dL 6.4-8.2 [facility] Sodium [Moles/Vol] 143 mmol/L 136-145 [facility] Urea nitrogen [Mass/Vol] 25.0 mg/dL 7.0-18.0 [facility] Urea nitrogen/Creatinine [Mass ratio] 13.8 mg/mg [facility] Serum or plasma albumin/glob ulin mass ratioon 02-10-2024 Albumin/Globulin [Mass ratio] 0.9 {ratio} [facility] Serum or plasma anion gap de terminationon 02-10-2024 Anion gap [Moles/Vol] 13.8 mmol/L [facility] Serum or plasma cancer antig en 19-9 measurement (units/volume)on 02-10-2024 Cancer Ag 19-9 Qn 13 [arb'U]/mL 0-35 [facility] Comment on above: [employer] El ectrochemiluminescence Immunoassay(ECLIA)Values obtained with different assay methods or kits cannotbe used interchangeably. Results cannot be interpreted asabsolute evidence of the presence or absence of malignantdisease.Performed at: [facility] [address] [id number] Director: Junaid Sawyer PhD, Phone: [phone] CNOVon 12-23-2023 CNOV Office Visit (NEEPFV ) -- CASSI RODRIGEZ ([id number]) 1950 F Date Time Provider Department 12/23/23 9:00 AM ALEJANDRO VILLAR NEEPFV During your visit today, we recorded the following information about you: Temperature Pulse Blood pressure Weight 97.6 degrees 85/minute 133/72 86.6 kg Height 1.575 m Alejandro Villar MD, PhD 12/23/2023 1:37 PM Signed [facility] CHIEF COMPLAINT: Patient presents [...] was referred to the headache clinic at [facility] in the past but at this time [...] There is no focal weakness. 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 Normal [facility] 09-13-2023 JESSICA Telephone (CARDAV) -- CASSI RODRIGEZ ([id number]) 1950 F Date Time Provider Department 09/13/23 MIRIAN BELL During your visit today, we recorded the following information about you: Brenda Hodges RN 09/13/2023 8:00 AM Signed Received medical records from [facility] and scanned into chart for review. Mirian Bell APRN.CNP 09/13/2023 1:54 PM Signed Thank you reviewed scan documents. Mirian Bell APRN.CNP Allergies As of Date: 09/13/2023 Noted Allergy Reaction LYRICA (PREGABALIN) 08/24/2013 2 - Rash DEXAMETHASONE 10/03/2015 2 - Rash Date Reviewed: 09/08/2023 Reviewed by: Alvarez, Gustabo, LEAD RADIATION THERAPIST - Fully Assessed Reason for Visit: Patient [...] pain [M79.602] 10/24/2019 Encounter Status:Closed by MIRIAN BELL on 09/13/23 [facility] CNOVon 09-08-2023 CNOV Office Visit (CARDAV ) -- CASSI RODRIGEZ Nery ([id number]) 1950 F Date Time Provider Department 09/08/23 2:30 PM MIRIAN BELL During your visit today, we recorded the following information about you: Pulse Blood pressure Weight Height 62/minute 130/64 86.5 kg 1.575 m Mirian Bell APRN.CNP 09/08/2023 3:29 PM [facility] [place] Guy Renteria Department of Cardiovascular Medicine SECTION OF CARDIAC PACING and ELECTROPHYSIOLOGY OUTPATIENT VISIT DATE September 08, 2023 OUTPATIENT VISIT TYPE ESTABLISHED PRIMARY CARE PHYSICIAN: Broderick Howard (Zack) [address] [place] [address] CHIEF COMPLAINT: follow up device management HISTORY [...] right leg DVT (2012), seizure, SHELL, IBS, fpc anticoagulation. Moderate functional capacity (active with ADL, [...] 68 8 (more content not included)... Normal [facility] [id number] 09-08-2023 ECG01 Ventricular Rate : 6 2 BPM Atrial Rate : 62 BPM P-R Interval : 194 ms QRS Duration : 76 ms Q-T Interval : 424 ms QTC Calculation(Bazett) : 430 ms Calculated P [facility] : 57 degrees Calculated R [facility] : 70 degrees Calculated T [facility] : 76 degrees ATRIAL-PACED RHYTHM Confirmed by KALIN AGUILA MD ([id number]) on 09/12/2023 10:29:58 PM NAME : CASSI RODRIGEZ PID : [id number] : 1950 Gender : Female Race : ORD : Procedure Date : Sep 08 2023 15:00:29 Edit Date : Sep 12 2023 22:29:59 Diagnosis: ATRIAL-PACED RHYTHM Confirmed by KALIN AGUILA MD ([id number]) on 09/12/2023 10:29:58 PM Test Reason : Location : 192 : AVCRD Overread By : KALIN AGUILA MD Edited By : KALIN AGUILA MD Referred By : , Acquired by : , Normal [facility] ECG01 Ventricular Rate : 6 4 BPM Atrial Rate : 64 BPM P-R Interval : 200 ms QRS Duration : 80 ms Q-T Interval : 406 ms QTC Calculation(Bazett) : 418 ms Calculated P [facility] : 94 degrees Calculated R [facility] : 94 degrees Calculated T [facility] : 83 degrees SUSPECT ARM LEAD REVERSAL, PLEASE REPEAT ATRIAL-PACED RHYTHM RIGHT AXIS LOW VOLTAGE QRS, CONSIDER PULMONARY DISEASE, PERICARDIAL EFFUSION, OR NORMAL VARIANT ABNORMAL ECG Confirmed by KALIN AGUILA MD ([id number]) on 09/12/2023 10:29:06 PM NAME : CASSI RODRIGEZ PID : [id number] : 1950 Gender : Female Race : ORD : Procedure Date : Sep 08 2023 14:58:41 Edit Date : Sep 12 2023 22:29:09 Diagnosis: SUSPECT ARM LEAD REVERSAL, PLEASE REPEAT ATRIAL-PACED RHYTHM RIGHT AXIS LOW VOLTAGE QRS, CONSIDER PULMONARY DISEASE, PERICARDIAL EFFUSION, OR NORMAL VARIANT ABNORMAL ECG Confirmed by KALIN AGUILA MD ([id number]) on 09/12/2023 10:29:06 PM Test Reason : Location : 192 : AVCRD Overread By : KALIN AGUILA MD Edited By : KALIN AGUILA MD Referred By : , Acquired by : , Normal [facility] No Panel Informationon 09-08 BLANK _ [facility] Implant Date 05/22/2015 [facility] Model 5076 CapSureFix Novus [facility] CHECKon AV Delay Adaptive Paced Minimum (ms) 180 ms [facility] AV Delay Adaptive Sensed Minimum (ms) 150 ms [facility] AV Delay Adaptive Status DISABLED [facility] Battery Voltage (volts) 2.94 V [facility] Godfrey RA Pacing Amplitude (volts) 1.5 V [facility] Godfrey RA Pacing Polarity BI [facility] Godfrey RA Pacing Pulse Width (ms) 0.4 ms [facility] Godfrey RA Sensing Amplitude (mvolts) 0.3 mV [facility] Godfrey RA Sensing Blanking Period (ms) 150 ms [facility] Godfrey RA Sensing Polarity BI [facility] Godfrey RA Sensing Refractory Period (ms) Auto [facility] Godfrey RV Pacing Amplitude (volts) 2 V [facility] Godfrey RV Pacing Polarity BI [facility] Godfrey RV Pacing Pulse Width (ms) 0.4 ms [facility] Godfrey RV Sensing Amplitude (mvolts) 0.9 mV [facility] Godfrey RV Sensing Blanking Period (ms) 200 ms [facility] Godfrey RV Sensing Polarity BI [facility] Hysteresis Rate (bpm) DISABLED [facility] Lead1 Mfg MDT [facility] Lead2 Mfg MDT [facility] Location RV [facility] Location RA [facility] Lower Rate (bpm) 60 {beats}/min [facility] Max Sensor Rate (bmp) 130 {beats}/min [facility] Model [id number] PAPITO [facility] PM-Device Jorge KELLER [facility] PM-Percent Pacing (A) 99.4 % [facility] PM-Percent Pacing (V) 0.24 % [facility] PM-PMT Intervention ENABLED [facility] PM-PVC Intervention ENABLED [facility] PM-Rate Modulation Acceleration Reaction 30 s [facility] PM-Rate Modulation ADL Rate (bpm) 100 {beats}/min [facility] PM-Rate Modulation Deceleration Exercise [facility] PM-Rate Modulation Threshold MediumLow [facility] RA Bipolar Impedance ohms 456 ohm [facility] RA Unipolar Impedance ohms 418 ohm [facility] RV Bipolar Impedance ohms 551 ohm [facility] RV Unipolar Impedance 532 ohm [facility] Serial Number [id number] [facility] Serial Number [id number] [facility] Serial Number [id number] [facility] Thresh RA Capture Amplitude (volts) 0.5 V [facility] Thresh RA Capture Duration (ms) 0.4 ms [facility] Thresh RA Sensing Amplitude (mvolts) 1.5 mV [facility] Thresh RV Capture Amplitude (volts) 0.75 V [facility] Thresh RV Capture Duration (ms) 0.4 ms [facility] Thresh RV Sensing Amplitude (mvolts) 13.125 mV [facility] Tracking Rate (bpm) 130 {beats}/min [facility] Complete Blood Count Auto Di ffon 08-12-2023 Basophils (Bld) [#/Vol] 0.0 10*3/uL Normal 0.0-0.2 [facility] Comment on above: Order Comment: Reaso n for Exam Lumbar spondylosis;Postoperative wound infection Result Comment: PERF ORMED BY: [place] [address] PATHOLOGIST [employer] LELE FALK M.D. Performed By: #### P T, PTT #### [place] [address] [place] Basophils/100 WBC (Bld) 0.5 % Normal . [facility] Comment on above: Order Comment: Reaso n for Exam Lumbar spondylosis;Postoperative wound infection Performed By: #### P T, PTT #### [place] [address] [place] Eosinophils (Bld) [#/Vol] 0.2 10*3/uL Normal 0.0-0.45 [facility] Comment on above: Order Comment: Reaso n for Exam Lumbar spondylosis;Postoperative wound infection Performed By: #### P T, PTT #### [place] [address] [place] Eosinophils/100 WBC (Bld) 4.4 % Normal . [facility] Comment on above: Order Comment: Reaso n for Exam Lumbar spondylosis;Postoperative wound infection Performed By: #### P T, PTT #### [address] Erythrocyte distribution width (RBC) [Ratio] 13.3 % Normal 11.9-15.3 [facility] Comment on above: Order Comment: Reaso n for Exam Lumbar spondylosis;Postoperative wound infection Performed By: #### P T, PTT #### [address] Hematocrit (Bld) [Volume fraction] 28.8 % Low 34.0-46.4 [facility] Comment on above: Order Comment: Reaso n for Exam Lumbar spondylosis;Postoperative wound infection Performed By: #### P T, PTT #### [address] Hemoglobin (Bld) [Mass/Vol] 9.6 g/dL Low 11.8-15.4 [facility] Comment on above: Order Comment: Reaso n for Exam Lumbar spondylosis;Postoperative wound infection Performed By: #### P T, PTT #### [address] Lymphocytes (Bld) [#/Vol] 0.6 10*3/uL Low 1.00-4.8 [facility] Comment on above: Order Comment: Reaso n for Exam Lumbar spondylosis;Postoperative wound infection Performed By: #### P T, PTT #### [address] Lymphocytes/100 WBC (Bld) 14.8 % Normal . [facility] Comment on above: Order Comment: Reaso n for Exam Lumbar spondylosis;Postoperative wound infection Performed By: #### P T, PTT #### [address] MCH (RBC) [Entitic mass] 31.9 pg Normal 24.7-34.3 [facility] Comment on above: Order Comment: Reaso n for Exam Lumbar spondylosis;Postoperative wound infection Performed By: #### P T, PTT #### [address] MCV (RBC) [Entitic vol] 95.0 fL Normal 80-100 [facility] Comment on above: Order Comment: Reaso n for Exam Lumbar spondylosis;Postoperative wound infection Performed By: #### P T, PTT #### [address] Mean Corpuscular HGB Conc 33.5 g/dL Normal 32.0-35.0 [facility] Comment on above: Order Comment: Reaso n for Exam Lumbar spondylosis;Postoperative wound infection Performed By: #### P T, PTT #### [place] [address] [place] Monocytes (Bld) [#/Vol] 0.3 10*3/uL Normal 0.0-0.8 [facility] Comment on above: Order Comment: Reaso n for Exam Lumbar spondylosis;Postoperative wound infection Performed By: #### P T, PTT #### [facility] [address] [place] [address] [place] Monocytes/100 WBC (Bld) 7.5 % Normal . [facility] Comment on above: Order Comment: Reaso n for Exam Lumbar spondylosis;Postoperative wound infection Performed By: #### P T, PTT #### [facility] [address] Neutrophils (Bld) [#/Vol] 3.1 10*3/uL Normal 1.8-7.7 [facility] Comment on above: Order Comment: Reaso n for Exam Lumbar spondylosis;Postoperative wound infection Performed By: #### P T, PTT #### [facility] [address] [place] [address] [place] Neutrophils/100 WBC (Bld) 72.8 % Normal . [facility] Comment on above: Order Comment: Reaso n for Exam Lumbar spondylosis;Postoperative wound infection Performed By: #### P T, PTT #### [place] [address] [place] NRBC% 0.1 /100{WBC} Normal 0-0.5 [facility] Comment on above: Order Comment: Reaso n for Exam Lumbar spondylosis;Postoperative wound infection Performed By: #### P T, PTT #### [address] Platelet mean volume (Bld) [Entitic vol] 7.7 fL Normal 6.3-10.7 [facility] Comment on above: Order Comment: Reaso n for Exam Lumbar spondylosis;Postoperative wound infection Performed By: #### P T, PTT #### [facility] [address] [place] [address] [place] Platelets (Bld) [#/Vol] 258 10*3/uL Normal 150-450 [facility] Comment on above: Order Comment: Reaso n for Exam Lumbar spondylosis;Postoperative wound infection Performed By: #### P T, PTT #### [place] [address] [place] RBC (Bld) [#/Vol] 3.03 10*6/uL Low 3.60-5.00 [facility] Comment on above: Order Comment: Reaso n for Exam Lumbar spondylosis;Postoperative wound infection Performed By: #### P T, PTT #### [facility] [address] [place] [address] WBC (Bld) [#/Vol] 4.3 10*3/uL Normal 3.8-11.6 [facility] Comment on above: Order Comment: Reaso n for Exam Lumbar spondylosis;Postoperative wound infection Performed By: #### P T, PTT #### [place] [id number] [place] Partial Thromboplastin Timeo n 08-12-2023 aPTT Coag (Bld) [Time] 46.9 s High 25.1-36.5 [facility] Comment on above: Order Comment: Reaso n for Exam Lumbar spondylosis;Postoperative wound infection List the anticoagulant: ASPIRIN Result Comment: A he matocrit value greater than 55% may lead to inaccurate results in coagulation testing. Patients having hematocrit values >55% require a special collection tube for coagulation studies. Please contact the laboratory at [phone] for redraw instructions. PERFORMED BY: [place] [address] PATHOLOGIST [employer] LELE FALK M.D. Performed By: #### P T, PTT #### [place] [id number] [facility] Prothrombin Time INRon 08-12 INR Coag (PPP) [Relative time] 2.5 {INR} Normal [facility] Comment on above: Order Comment: [...] Performed By: #### P T, PTT #### [address] PT Coag (PPP) [Time] 29.5 s High 9.0-12.9 [facility] Comment on above: Order Comment: Reaso n for Exam Lumbar spondylosis;Postoperative wound infection List the anticoagulant: ASPIRIN Result Comment: A he matocrit value greater than 55% may lead to inaccurate results in coagulation testing. Patients having hematocrit values >55% require a special collection tube for coagulation studies. Please contact the laboratory at [phone] for redraw instructions. Performed By: #### P T, PTT #### [address] Automated basophil %Ordered By: Niki Blades on 08-05-2023 Basophils/100 WBC (Bld) 0.2 % Normal . [facility] Comment on above: Performed By: #### P T, PTT #### [address] Automated basophil countOrde red By: Niki Blades on 08-05-2023 Basophils (Bld) [#/Vol] 0.0 10*3/uL Normal 0.0-0.2 [facility] Comment on above: Result Comment: PERF ORMED BY: [place] [address] PATHOLOGIST [employer] LELE FALK M.D. Performed By: #### P T, PTT #### [address] Automated blood monocyte cou ntOrdered By: Niki Blades on 08-05-2023 Monocytes (Bld) [#/Vol] 0.7 10*3/uL Normal 0.0-0.8 [facility] Comment on above: Performed By: #### P T, PTT #### [address] Automated eosinophil %Ordere d By: Niki Blades on 08-05-2023 Eosinophils/100 WBC (Bld) 1.7 % Normal . [facility] Comment on above: Performed By: #### P T, PTT #### [place] [id number] [place] Automated eosinophil countOr dered By: Niki Blades on 08-05-2023 Eosinophils (Bld) [#/Vol] 0.1 10*3/uL Normal 0.0-0.45 [facility] Comment on above: Performed By: #### P T, PTT #### [address] Automated monocyte %Ordered By: Niki Blades on 08-05-2023 Monocytes/100 WBC (Bld) 9.2 % Normal . [facility] Comment on above: Performed By: #### P T, PTT #### [address] Automated neutrophil %Ordere d By: Niki Blades on 08-05-2023 Neutrophils/100 WBC (Bld) 77.1 % Normal . [facility] Comment on above: Performed By: #### P T, PTT #### [address] Basic Metabolic Panelon 07-17 Creatinine Clr Calc Pharmacy 38.09 Normal [facility] Comment on above: Result Comment: PERF ORMED BY: [place] [address] PATHOLOGIST [employer] LELE FALK M.D. Performed By: #### P T, PTT #### [address] GFR/1.73 sq M.predicted MDRD (S/P/Bld) [Vol rate/Area] 38.727 mL/min/{1.73_m2} Normal [facility] Comment on above: Performed By: #### P T, PTT #### [address] Calcium [Mass/volume] in Ser um or PlasmaOrdered By: Niki Blades on 08-05-2023 Calcium [Mass/Vol] 8.1 mg/dL Low 8.6-10.3 [facility] Comment on above: Performed By: #### P T, PTT #### [address] Carbon dioxide, total [Moles /volume] in Serum or PlasmaOrdered By: Niki Blades on 08-05-2023 CO2 [Moles/Vol] 25.2 mmol/L Normal 21.0-31.0 [facility] Comment on above: Performed By: #### P T, PTT #### [address] Chloride [Moles/volume] in S akila or PlasmaOrdered By: Niki Blades on 08-05-2023 Chloride [Moles/Vol] 111 mmol/L High 98-107 [facility] Comment on above: Performed By: #### P T, PTT #### [address] Complete Blood Count Auto Di ffon 08-05-2023 Mean Corpuscular HGB Conc 33.5 g/dL Normal 32.0-35.0 [facility] Comment on above: Performed By: #### P T, PTT #### [address] NRBC% 0.4 /100{WBC} Normal 0-0.5 [facility] Comment on above: Performed By: #### P T, PTT #### [address] Creatinine [Mass/volume] in Serum or PlasmaOrdered By: Niki Blades on 08-05-2023 Creatinine [Mass/Vol] 1.43 mg/dL High 0.60-1.20 [facility] Comment on above: Performed By: #### P T, PTT #### [place] [address] [place] Erythrocyte distribution wid th [Ratio] by Automated countOrdered By: Niki Blades on 08-05-2023 Erythrocyte distribution width (RBC) [Ratio] 13.5 % Normal 11.9-15.3 [facility] Comment on above: Performed By: #### P T, PTT #### [place] [id number] [place] Erythrocytes [#/volume] in B lood by Automated countOrdered By: Niki Weeks on 08-05-2023 RBC (Bld) [#/Vol] 3.14 10*6/uL Low 3.60-5.00 [facility] Comment on above: Performed By: #### P T, PTT #### [facility] [address] Glucose [Mass/volume] in Ser um or PlasmaOrdered By: Niki Weeks on 08-05-2023 Glucose [Mass/Vol] 121 mg/dL High 70-100 [facility] Comment on above: ADA recommended refe rence rangeRandom Glucose Reference Range is dependent on time and content of last meal. Glucose of more than 200 mg/dL in a nonstressed, ambulatory subject supports the diagnosis of Diabetes Mellitus. Result Comment: [place] om Glucose Reference Range is dependent on time and content of last meal. Glucose of more than 200 mg/dL in a nonstressed, ambulatory subject supports the diagnosis of Diabetes Mellitus. ADA recommended reference range Performed By: #### P T, PTT #### [facility] [address] Hematocrit [Volume Fraction] of Blood by Automated countOrdered By: Niki Weeks on 08-05-2023 Hematocrit (Bld) [Volume fraction] 29.9 % Low 34.0-46.4 [facility] Comment on above: Performed By: #### P T, PTT #### [facility] [address] [place] [address] [place] Hemoglobin [Mass/volume] in BloodOrdered By: Niki Weeks on 08-05-2023 Hemoglobin (Bld) [Mass/Vol] 10.0 g/dL Low 11.8-15.4 [facility] Comment on above: Performed By: #### P T, PTT #### [facility] [address] [place] [address] Leukocytes [#/volume] correc tanesha for nucleated erythrocytes in Blood by Automated counOrdered By: Niki Rms on 08-05-2023 WBC corrected for nucl RBC Auto (Bld) [#/Vol] 7.3 10*3/uL 3.8-11.6 [facility] Leukocytes [#/volume] in Blo od by Automated countOrdered By: Niki Blades on 08-05-2023 WBC (Bld) [#/Vol] 7.3 10*3/uL Normal 3.8-11.6 [facility] Comment on above: Performed By: #### P T, PTT #### [facility] [address] [place] [address] Lymphocytes [#/volume] in Bl ood by Automated countOrdered By: Niki Blades on 08-05-2023 Lymphocytes (Bld) [#/Vol] 0.9 10*3/uL Low 1.00-4.8 [facility] Comment on above: Performed By: #### P T, PTT #### [facility] [address] [place] [address] Lymphocytes/100 leukocytes i n Blood by Automated countOrdered By: Niki Blades on 08-05-2023 Lymphocytes/100 WBC (Bld) 11.8 % Normal . [facility] Comment on above: Performed By: #### P T, PTT #### [facility] [address] [place] [address] MCH [Entitic mass] by Automa tanesha countOrdered By: Niki Blades on 08-05-2023 MCH (RBC) [Entitic mass] 31.9 pg Normal 24.7-34.3 [facility] Comment on above: Performed By: #### P T, PTT #### [facility] [address] [place] [address] MCHC Auto (RBC) [Mass/Vol]Or dered By: Niki Blades on 08-05-2023 MCHC (RBC) [Mass/Vol] 33.5 g/dL 32.0-35.0 [facility] MCV [Entitic volume] by Auto mated countOrdered By: Niki Blades on 08-05-2023 MCV (RBC) [Entitic vol] 95.1 fL Normal 80-100 [facility] Comment on above: Performed By: #### P T, PTT #### [facility] [address] Neutrophils [#/volume] in Bl ood by Automated countOrdered By: Niki Blades on 08-05-2023 Neutrophils (Bld) [#/Vol] 5.6 10*3/uL Normal 1.8-7.7 [facility] Comment on above: Performed By: #### P T, PTT #### [facility] [address] [place] [address] No Panel InformationOrdered By: Niki Blades on 08-05-2023 Estimated GFR (CKD-EPI) 38.727 mL/Min [facility] Creatinine Clearance (Chem 38.09 [facility] Nucleated erythrocytes [Pres ence] in Blood by Automated countOrdered By: Niki Blades on 08-05-2023 Nucleated RBC Auto Ql (Bld) 0.4 /100{WBC} 0-0.5 [facility] Platelet mean volume [Entiti c volume] in Blood by Automated countOrdered By: Inki Blades on 08-05-2023 Platelet mean volume (Bld) [Entitic vol] 7.6 fL Normal 6.3-10.7 [facility] Comment on above: Performed By: #### P T, PTT #### [facility] [address] [place] [address] Platelets [#/volume] in Bloo d by Automated countOrdered By: Niki Blades on 08-05-2023 Platelets (Bld) [#/Vol] 147 10*3/uL Low 150-450 [facility] Comment on above: Performed By: #### P T, PTT #### [facility] [address] [place] [address] Potassium [Moles/volume] in Serum or PlasmaOrdered By: Niki Blades on 08-05-2023 Potassium [Moles/Vol] 4.4 mmol/L Normal 3.5-5.1 [facility] Comment on above: Performed By: #### P T, PTT #### [address] [address] [place] Serum or plasma anion gap de terminationOrdered By: Niki Blades on 08-05-2023 Anion gap [Moles/Vol] 7.2 mmol/L Normal 6.0-15.0 [facility] Comment on above: Performed By: #### P T, PTT #### [place] [address] [place] Sodium [Moles/volume] in Ser um or PlasmaOrdered By: Niki Blades on 08-05-2023 Sodium [Moles/Vol] 139 mmol/L Normal 136-145 [facility] Comment on above: Performed By: #### P T, PTT #### [address] Urea nitrogen [Mass/volume] in Serum or PlasmaOrdered By: Niki Blades on 08-05-2023 Urea nitrogen [Mass/Vol] 25 mg/dL Normal 7-25 [facility] Comment on above: Performed By: #### P T, PTT #### [address] Basic Metabolic Panelon 07-17 Anion gap [Moles/Vol] 7.9 mmol/L Normal 6.0-15.0 [facility] Comment on above: Performed By: #### B MP, CBC #### [address] Calcium [Mass/Vol] 7.4 mg/dL Low 8.6-10.3 [facility] Comment on above: Performed By: #### B MP, CBC #### [place] [address] [place] Chloride [Moles/Vol] 110 mmol/L High 98-107 [facility] Comment on above: Performed By: #### B MP, CBC #### [address] CO2 [Moles/Vol] 23.9 mmol/L Normal 21.0-31.0 [facility] Comment on above: Performed By: #### B MP, CBC #### [address] Creatinine [Mass/Vol] 1.48 mg/dL High 0.60-1.20 [facility] Comment on above: Performed By: #### B MP, CBC #### [place] [address] [place] Creatinine Clr Calc Pharmacy 34.66 Normal [facility] Comment on above: Result Comment: PERF ORMED BY: [place] [address] PATHOLOGIST [employer] LELE FALK M.D. Performed By: #### B MP, CBC #### [place] [address] [place] GFR/1.73 sq M.predicted MDRD (S/P/Bld) [Vol rate/Area] 37.163 mL/min/{1.73_m2} Normal [facility] Comment on above: Performed By: #### B MP, CBC #### [address] Glucose [Mass/Vol] 129 mg/dL High 70-100 [facility] Comment on above: Result Comment: [place] Glucose Reference Range is dependent on time and content of last meal. Glucose of more than 200 mg/dL in a nonstressed, ambulatory subject supports the diagnosis of Diabetes Mellitus. ADA recommended reference range Performed By: #### B MP, CBC #### [place] [address] [place] Potassium [Moles/Vol] 4.8 mmol/L Normal 3.5-5.1 [facility] Comment on above: Performed By: #### B MP, CBC #### [place] [address] [place] Sodium [Moles/Vol] 137 mmol/L Normal 136-145 [facility] Comment on above: Performed By: #### B MP, CBC #### [place] [address] [place] Urea nitrogen [Mass/Vol] 24 mg/dL Normal 7-25 [facility] Comment on above: Performed By: #### B MP, CBC #### [address] Complete Blood Count Auto Di ffon 08-04-2023 Basophils (Bld) [#/Vol] 0.0 10*3/uL Normal 0.0-0.2 [facility] Comment on above: Result Comment: PERF ORMED BY: [place] [address] PATHOLOGIST [employer] LELE FALK M.D. Performed By: #### B MP, CBC #### [address] Basophils/100 WBC (Bld) 0.0 % Normal . T evette [facility] Comment on above: Performed By: #### B MP, CBC #### [address] Eosinophils (Bld) [#/Vol] 0.0 10*3/uL Normal 0.0-0.45 [facility] Comment on above: Performed By: #### B MP, CBC #### [address] Eosinophils/100 WBC (Bld) 0.0 % Normal . [facility] Comment on above: Performed By: #### B MP, CBC #### [address] Erythrocyte distribution width (RBC) [Ratio] 13.6 % Normal 11.9-15.3 [facility] Comment on above: Performed By: #### B MP, CBC #### [address] Hematocrit (Bld) [Volume fraction] 31.5 % Low 34.0-46.4 [facility] Comment on above: Performed By: #### B MP, CBC #### [address] Hemoglobin (Bld) [Mass/Vol] 10.5 g/dL Low 11.8-15.4 [facility] Comment on above: Performed By: #### B MP, CBC #### [address] Lymphocytes (Bld) [#/Vol] 0.5 10*3/uL Low 1.00-4.8 [facility] Comment on above: Performed By: #### B MP, CBC #### [address] Lymphocytes/100 WBC (Bld) 4.4 % Normal . [facility] Comment on above: Performed By: #### B MP, CBC #### [address] MCH (RBC) [Entitic mass] 31.6 pg Normal 24.7-34.3 [facility] Comment on above: Performed By: #### B MP, CBC #### [address] MCV (RBC) [Entitic vol] 94.8 fL Normal 80-100 [facility] Comment on above: Performed By: #### B MP, CBC #### [address] Mean Corpuscular HGB Conc 33.3 g/dL Normal 32.0-35.0 [facility] Comment on above: Performed By: #### B MP, CBC #### [address] Monocytes (Bld) [#/Vol] 0.5 10*3/uL Normal 0.0-0.8 [facility] Comment on above: Performed By: #### B MP, CBC #### [place] [address] [place] Monocytes/100 WBC (Bld) 4.0 % Normal . [facility] Comment on above: Performed By: #### B MP, CBC #### [address] Neutrophils (Bld) [#/Vol] 10.4 10*3/uL High 1.8-7.7 [facility] Comment on above: Performed By: #### B MP, CBC #### [address] Neutrophils/100 WBC (Bld) 91.6 % Normal . [facility] Comment on above: Performed By: #### B MP, CBC #### [address] NRBC% 0.1 /100{WBC} Normal 0-0.5 [facility] Comment on above: Performed By: #### B MP, CBC #### [address] Platelet mean volume (Bld) [Entitic vol] 7.8 fL Normal 6.3-10.7 [facility] Comment on above: Performed By: #### B MP, CBC #### [address] Platelets (Bld) [#/Vol] 172 10*3/uL Normal 150-450 [facility] Comment on above: Performed By: #### B MP, CBC #### [address] RBC (Bld) [#/Vol] 3.32 10*6/uL Low 3.60-5.00 [facility] Comment on above: Performed By: #### B MP, CBC #### [address] WBC (Bld) [#/Vol] 11.4 10*3/uL Normal 3.8-11.6 [facility] Comment on above: Performed By: #### B MP, CBC #### [address] ABO/Rh Retypeon 08-03-2023 ABO/RH Recheck Result Positive Normal [facility] Comment on above: Result Comment: PERF ORMED BY: [place] [address] PATHOLOGIST [employer] LELE FALK M.D. Activated partial thrombopla stin time (aPTT) in platelet poor plasma by coagulation aOrdered By: Cj Gamboa on 08-03-2023 aPTT Coag (PPP) [Time] 44.3 s 25.1-36.5 [facility] Comment on above: A hematocrit value g reater than 55% may lead to inaccurate results in coagulation testing. Patients having hematocrit values >55% require a special collection tube for coagulation studies. Please contact the laboratory at [phone] for redraw instructions. INR in Platelet poor plasma by Coagulation assayOrdered By: Cj Gamboa on 08-03-2023 INR Coag (PPP) [Relative time] 2.1 {INR} Normal [facility] Comment on above: INR Therapeutic Rang [...] with mechanical heart valves: 3 - 4.5 Result Comment: INR Therapeutic Range A) Pre- [...] Performed By: #### P T, PTT #### [address] 08-03-2023 L ------ Specimen: [id number] Received: 08/03/23 Status: DALEGalo Russo Num: [id number] Spec Type: Surgical Subm Dr: Niki Weeks MD Tissues: A Gross Only (BACK FB) Procedures: Level 1 Gross Age/ Patient Sex Location Account Attending Physician Cassi Rodrigez 73/F 4N [id number] Niki Weeks MD SPEC NUM: [id number] RECD: 08/03/23 STATUS: SHARON RUSSO NUM: [id number] GRACIA: 08/03/23- [facility] DR: Niki Weeks MD ENTERED: 08/03/23 [facility] DR: YANET TYPE: Surgical DEPT: S ORDERED: Level 1 [...] is taken. Gross examination only. CPT Codes 30613 Gross Photo Specimen: [id number] Received: 08/03/23 Status: SHARON Regaladotruman Num: [id number] Spec Type: Surgical Subm Dr: Niki Weeks MD Tissues: A Gross Only (BACK FB) Procedures: Level 1 Gross Patient: RodrigezCassi reyes [id number] (Continued) Signed (signature on file) Prashanth Wynn MD 08/05/23921 Normal [facility] Partial Thromboplastin Timeo n 08-03-2023 aPTT Coag (Bld) [Time] 44.3 s High 25.1-36.5 [facility] Comment on above: Result Comment: A he matocrit value greater than 55% may lead to inaccurate results in coagulation testing. Patients having hematocrit values >55% require a special collection tube for coagulation studies. Please contact the laboratory at [phone] for redraw instructions. PERFORMED BY: [address] [address] PATHOLOGIST [employer] LELE FALK M.D. Performed By: #### P T, PTT #### [facility] [address] [place], [place] [id number] [facility] Prothrombin time (PT)Ordered By: Cj Gamboa on 08-03-2023 PT Coag (PPP) [Time] 24.8 s High 9.0-12.9 [facility] Comment on above: A hematocrit value g reater than 55% may lead to inaccurate results in coagulation testing. Patients having hematocrit values >55% require a special collection tube for coagulation studies. Please contact the laboratory at [phone] for redraw instructions. Result Comment: A he matocrit value greater than 55% may lead to inaccurate results in coagulation testing. Patients having hematocrit values >55% require a special collection tube for coagulation studies. Please contact the laboratory at [phone] for redraw instructions. Performed By: #### P T, PTT #### [address] [address] [facility] Type and Screenon 08-03-2023 ABO and Rh group Nom (Bld) Blood group A Rh(D) positive Normal [facility] XR lumbar spine 1Von 023 XR lumbar spine 1V [facility] Main [place] [id number] XRay Report Signed Patient: Cassi Rodrigez MR#: [id number] 8 : 1950 Acct:[id number] Age/Sex: 73 / F ADM Date: 08/03/23 Loc: [place] Room: Type: [facility] Attending Dr: Niki Weeks MD Copies to: [...] Paris Phoenix M.D.08/03/2023 9:50 AM Dictation Location: [place] [address] Transcribed By: [facility] 08/03/2350 Dictated By: Paris Phoenix MD 08/03/2347 Signed By: 08/03/23949 Normal [facility] Automated basophil %Ordered By: Niki Blades on 07-20-2023 Basophils/100 WBC (Bld) 0.6 % Normal . [facility] Comment on above: Performed By: #### C SUKUMAR, BMP #### [address] Automated basophil countOrde red By: Niki Blades on 07-20-2023 Basophils (Bld) [#/Vol] 0.0 10*3/uL Normal 0.0-0.2 [facility] Comment on above: Result Comment: PERF ORMED BY: [place] [address] PATHOLOGIST [employer] LELE FALK M.D. Performed By: #### C SUKUMAR, BMP #### [address] Automated blood monocyte cou ntOrdered By: Niki Blades on 07-20-2023 Monocytes (Bld) [#/Vol] 0.4 10*3/uL Normal 0.0-0.8 [facility] Comment on above: Performed By: #### C SUKUMAR, BMP #### [address] Automated eosinophil %Ordere d By: Niki Blades on 07-20-2023 Eosinophils/100 WBC (Bld) 4.9 % Normal . [facility] Comment on above: Performed By: #### C BC, BMP #### [address] Automated eosinophil countOr dered By: Niki Rms on 07-20-2023 Eosinophils (Bld) [#/Vol] 0.3 10*3/uL Normal 0.0-0.45 [facility] Comment on above: Performed By: #### C BC, BMP #### [address] Automated monocyte %Ordered By: Niki Blades on 07-20-2023 Monocytes/100 WBC (Bld) 6.9 % Normal . [facility] Comment on above: Performed By: #### C BC, BMP #### [address] Automated neutrophil %Ordere d By: Niki Blades on 07-20-2023 Neutrophils/100 WBC (Bld) 73.8 % Normal . [facility] Comment on above: Performed By: #### C BC, BMP #### [address] Automated urine color determ inationOrdered By: Niki Weeks on 07-20-2023 Color (U) Yellow Normal Yellow [facility] Comment on above: Order Comment: Name Collection Type:: Clean-Voided Midstream Performed By: #### U A #### [address] Basic Metabolic Panelon GFR/1.73 sq M.predicted MDRD (S/P/Bld) [Vol rate/Area] 35.992 mL/min/{1.73_m2} Normal [facility] Comment on above: Performed By: #### C BC, BMP #### [address] Bilirubin Test strip Ql (U)O rdered By: Niki Rms on 07-20-2023 Bilirubin Ql (U) Negative Negative [facility] Calcium [Mass/volume] in Ser um or PlasmaOrdered By: Niki Rms on 07-20-2023 Calcium [Mass/Vol] 8.6 mg/dL Normal 8.6-10.3 [facility] Comment on above: Result Comment: PERF ORMED BY: [place] [address] PATHOLOGIST [employer] LELE FALK M.D. Performed By: #### C BC, BMP #### [address] Carbon dioxide, total [Moles /volume] in Serum or PlasmaOrdered By: Niki Blades on 07-20-2023 CO2 [Moles/Vol] 26.3 mmol/L Normal 21.0-31.0 [facility] Comment on above: Performed By: #### C BC, BMP #### [address] Chloride [Moles/volume] in S akila or PlasmaOrdered By: Niki Blades on 07-20-2023 Chloride [Moles/Vol] 109 mmol/L High 98-107 [facility] Comment on above: Performed By: #### C BC, BMP #### [address] Complete Blood Count Auto Di ffon 07-20-2023 Mean Corpuscular HGB Conc 33.0 g/dL Normal 32.0-35.0 [facility] Comment on above: Performed By: #### C BC, BMP #### [address] NRBC% 0.1 /100{WBC} Normal 0-0.5 [facility] Comment on above: Performed By: #### C BC, BMP #### [address] Creatinine [Mass/volume] in Serum or PlasmaOrdered By: Niki Blades on 07-20-2023 Creatinine [Mass/Vol] 1.52 mg/dL High 0.60-1.20 [facility] Comment on above: Performed By: #### C BC, BMP #### [address] [place] [address] [facility] ECG 12 lead ECGon 07-20-2023 ECG 12 lead ECG [facility] Main [place] [address] [place] [address] Electrocardiograph Report Signed Patient: Cassi Rodrigez MR#: [id number] 8 : 1950 Acct:[id number] Age/Sex: 73 / F ADM Date: 07/20/23 Loc: Room: Type: [facility] Attending Dr: Niki Weeks MD Ordering Provider: [...] Brock MD 0 07/20/23 1122 Normal [facility] Erythrocyte distribution wid th [Ratio] by Automated countOrdered By: Niki Weeks on 07-20-2023 Erythrocyte distribution width (RBC) [Ratio] 13.5 % Normal 11.9-15.3 [facility] Comment on above: Performed By: #### C BC, BMP #### [facility] [address] [place] [address] Erythrocytes [#/volume] in B lood by Automated countOrdered By: Niki Weeks on 07-20-2023 RBC (Bld) [#/Vol] 4.09 10*6/uL Normal 3.60-5.00 [facility] Comment on above: Performed By: #### C BC, BMP #### [address] Glucose [Mass/volume] in Ser um or PlasmaOrdered By: Niki Weeks on 07-20-2023 Glucose [Mass/Vol] 120 mg/dL High 70-100 [facility] Comment on above: ADA recommended refe rence rangeRandom Glucose Reference Range is dependent on time and content of last meal. Glucose of more than 200 mg/dL in a nonstressed, ambulatory subject supports the diagnosis of Diabetes Mellitus. Result Comment: [place] om Glucose Reference Range is dependent on time and content of last meal. Glucose of more than 200 mg/dL in a nonstressed, ambulatory subject supports the diagnosis of Diabetes Mellitus. ADA recommended reference range Performed By: #### C SUKUMAR, BMP #### [address] Hematocrit [Volume Fraction] of Blood by Automated countOrdered By: Niki Weeks on 07-20-2023 Hematocrit (Bld) [Volume fraction] 38.3 % Normal 34.0-46.4 [facility] Comment on above: Performed By: #### C BC, BMP #### [address] Hemoglobin [Mass/volume] in BloodOrdered By: Niki Weeks on 07-20-2023 Hemoglobin (Bld) [Mass/Vol] 12.6 g/dL Normal 11.8-15.4 [facility] Comment on above: Performed By: #### C SUKUMAR, BMP #### [address] Ketones Auto test strip (U) [Mass/Vol]Ordered By: Niki Weeks on 07-20-2023 Ketones (U) [Mass/Vol] Negative Negative [facility] Leukocytes [#/volume] correc tanesha for nucleated erythrocytes in Blood by Automated counOrdered By: Niki Weeks on 07-20-2023 WBC corrected for nucl RBC Auto (Bld) [#/Vol] 5.2 10*3/uL 3.8-11.6 [facility] Leukocytes [#/volume] in Blo od by Automated countOrdered By: Niki Weeks on 07-20-2023 WBC (Bld) [#/Vol] 5.2 10*3/uL Normal 3.8-11.6 [facility] Comment on above: Performed By: #### C BC, BMP #### [place] [address] [place] Lymphocytes [#/volume] in Bl ood by Automated countOrdered By: Niki Blades on 07-20-2023 Lymphocytes (Bld) [#/Vol] 0.7 10*3/uL Low 1.00-4.8 [facility] Comment on above: Performed By: #### C BC, BMP #### [place] [address] [place] Lymphocytes/100 leukocytes i n Blood by Automated countOrdered By: Niki Blades on 07-20-2023 Lymphocytes/100 WBC (Bld) 13.8 % Normal . [facility] Comment on above: Performed By: #### C BC, BMP #### [address] MCH [Entitic mass] by Automa tanesha countOrdered By: Niki Blades on 07-20-2023 MCH (RBC) [Entitic mass] 30.9 pg Normal 24.7-34.3 [facility] Comment on above: Performed By: #### C BC, BMP #### [address] MCHC Auto (RBC) [Mass/Vol]Or dered By: Niki Blades on 07-20-2023 MCHC (RBC) [Mass/Vol] 33.0 g/dL 32.0-35.0 [facility] MCV [Entitic volume] by Auto mated countOrdered By: Niki Blades on 07-20-2023 MCV (RBC) [Entitic vol] 93.7 fL Normal 80-100 [facility] Comment on above: Performed By: #### C BC, BMP #### [place] [address] [place] Neutrophils [#/volume] in Bl ood by Automated countOrdered By: Niki Blades on 07-20-2023 Neutrophils (Bld) [#/Vol] 3.8 10*3/uL Normal 1.8-7.7 [facility] Comment on above: Performed By: #### C SUKUMAR, BMP #### [facility] [address] Nitrite Test strip Ql (U)Ord ered By: Niki Rms on 07-20-2023 Nitrite Ql (U) Negative Negative [facility] No Panel InformationOrdered By: Niki Rms on 07-20-2023 Estimated GFR (CKD-EPI) 35.992 mL/Min [facility] Creatinine Clearance (Chem N/A [facility] Nucleated erythrocytes [Pres ence] in Blood by Automated countOrdered By: Niki Weeks on 07-20-2023 Nucleated RBC Auto Ql (Bld) 0.1 /100{WBC} 0-0.5 [facility] Platelet mean volume [Entiti c volume] in Blood by Automated countOrdered By: Niki Weeks on 07-20-2023 Platelet mean volume (Bld) [Entitic vol] 7.2 fL Normal 6.3-10.7 [facility] Comment on above: Performed By: #### C SUKUMAR, BMP #### [place] [address] [place] Platelets [#/volume] in Bloo d by Automated countOrdered By: Niki Weeks on 07-20-2023 Platelets (Bld) [#/Vol] 194 10*3/uL Normal 150-450 [facility] Comment on above: Performed By: #### C SUKUMAR, BMP #### [place] [address] [place] Potassium [Moles/volume] in Serum or PlasmaOrdered By: Niki Bladetina on 07-20-2023 Potassium [Moles/Vol] 4.6 mmol/L Normal 3.5-5.1 [facility] Comment on above: Performed By: #### C SUKUMAR, BMP #### [place] [address] [place] Protein Auto test strip (U) [Mass/Vol]Ordered By: Niki Weeks on 07-20-2023 Protein (U) [Mass/Vol] Negative Negative [facility] Serum or plasma anion gap de terminationOrdered By: Niki Blades on 07-20-2023 Anion gap [Moles/Vol] 9.3 mmol/L Normal 6.0-15.0 [facility] Comment on above: Performed By: #### C SUKUMAR, BMP #### [address] Sodium [Moles/volume] in Ser um or PlasmaOrdered By: Niki Blades on 07-20-2023 Sodium [Moles/Vol] 140 mmol/L Normal 136-145 [facility] Comment on above: Performed By: #### C SUKUMAR, BMP #### [address] Specific gravity Auto test s trip (U) [Rel density]Ordered By: Niki Desi on 07-20-2023 Specific gravity (U) [Rel density] 1.021 1.001-1.03 0 [facility] Urea nitrogen [Mass/volume] in Serum or PlasmaOrdered By: Niki Weeks on 07-20-2023 Urea nitrogen [Mass/Vol] 30 mg/dL High 7-25 [facility] Comment on above: Performed By: #### C SUKUMAR, BMP #### [place] [address] [place] Urinalysison 07-20-2023 Appearance (U) Clear Normal Clear [facility] Comment on above: Order Comment: Name Collection Type:: Clean-Voided Midstream Performed By: #### U A #### [address] Bilirubin,Urine Negative Normal Negative [facility] Comment on above: Order Comment: Name Collection Type:: Clean-Voided Midstream Performed By: #### U A #### [address] Glucose Ql (U) Normal Normal Normal [facility] Comment on above: Order Comment: Name Collection Type:: Clean-Voided Midstream Performed By: #### U A #### [address] Ketones Ql (U) Negative Normal Negative [facility] Comment on above: Order Comment: Name Collection Type:: Clean-Voided Midstream Performed By: #### U A #### [address] Leukocyte esterase Test strip Ql (U) Negative Normal Negative [facility] Comment on above: Order Comment: Name Collection Type:: Clean-Voided Midstream Performed By: #### U A #### [place] [address] [place] Nitrite,Urine Negative Normal Negative [facility] Comment on above: Order Comment: Name Collection Type:: Clean-Voided Midstream Performed By: #### U A #### [place] [address] [place] Occult Blood,Urine Negative Normal Negative [facility] Comment on above: Order Comment: Name Collection Type:: Clean-Voided Midstream Result Comment: PERF ORMED BY: [place] [address] PATHOLOGIST [employer] LELE FALK M.D. Performed By: #### U A #### [address] Protein,Urine Negative Normal Negative [facility] Comment on above: Order Comment: Name Collection Type:: Clean-Voided Midstream Performed By: #### U A #### [place] [address] [place] Specificy [place],Urine 1.021 Normal 1.00 1-1.03 0 [facility] Comment on above: Order Comment: Name Collection Type:: Clean-Voided Midstream Performed By: #### U A #### [place] [address] [place] Urobilinogen,Urine Normal Normal Normal [facility] Comment on above: Order Comment: Name Collection Type:: Clean-Voided Midstream Performed By: #### U A #### [facility] [address] [place] [id number] [facility] Urine clarity by refractomet ry automatedOrdered By: Nkii Weeks on 07-20-2023 Clarity Refractometry automated (U) Clear Clear [facility] Urine glucose measurement by automated test strip (mass/volume)Ordered By: Niki Weeks on 07-20-2023 Glucose Auto test strip (U) [Mass/Vol] Normal mg/dL Normal [facility] Urine hemoglobin detection b y automated test stripOrdered By: Niki Weeks on 07-20-2023 Hemoglobin Auto test strip Ql (U) Negative Negative [facility] Urine leukocyte esterase det ection by automated test stripOrdered By: Niki Weeks on 07-20-2023 Leukocyte esterase Auto test strip Ql (U) Negative Negative [facility] Urine pH measurement by auto mated test stripOrdered By: Niki Weeks on 07-20-2023 pH (U) 5.5 [pH] Normal 5.0-9.0 [facility] Comment on above: Order Comment: Name Collection Type:: Clean-Voided Midstream Performed By: #### U A #### [facility] [address] [place], [place] [id number] [facility] Urobilinogen Auto test strip (U) [Mass/Vol]Ordered By: Niki Weeks on 07-20-2023 Urobilinogen (U) [Mass/Vol] Normal mg/dL Normal [facility] No Panel Informationon 06-16 BLANK _ [facility] Implant Date 05/22/2015 [facility] Model 5076 [employer] Novus Moo [facility] PACEMAKER REMOTE CHECKon AV Delay Adaptive Paced Minimum (ms) 180 ms [facility] AV Delay Adaptive Sensed Minimum (ms) 150 ms [facility] AV Delay Adaptive Status DISABLED [facility] Battery Voltage (volts) 2.94 V [facility] Godfrey RA Pacing Amplitude (volts) 1.5 V [facility] Godfrey RA Pacing Polarity BI [facility] Godfrey RA Pacing Pulse Width (ms) 0.4 ms [facility] Godfrey RA Sensing Amplitude (mvolts) 0.3 mV [facility] Godfrey RA Sensing Blanking Period (ms) 150 ms [facility] Godfrey RA Sensing Polarity BI [facility] Godfrey RA Sensing Refractory Period (ms) Auto [facility] Godfrey RV Pacing Amplitude (volts) 2 V [facility] Godfrey RV Pacing Polarity BI [facility] Godfrey RV Pacing Pulse Width (ms) 0.4 ms [facility] Godfrey RV Sensing Amplitude (mvolts) 0.9 mV [facility] Godfrey RV Sensing Blanking Period (ms) 200 ms [facility] Godfrey RV Sensing Polarity BI [facility] Hysteresis Rate (bpm) DISABLED [facility] Lead1 Mfg MDT [facility] Lead2 Mfg MDT [facility] Location RV [facility] Location RA [facility] Lower Rate (bpm) 60 {beats}/min [facility] Max Sensor Rate (bmp) 130 {beats}/min [facility] Model [id number] COBOS [facility] PM-Device lizet MDT [facility] PM-Percent Pacing (A) 99.76 % [facility] PM-Percent Pacing (V) 0.11 % [facility] PM-PMT Intervention ENABLED [facility] PM-PVC Intervention ENABLED [facility] PM-Rate Modulation Acceleration Reaction 30 s [facility] PM-Rate Modulation ADL Rate (bpm) 100 {beats}/min [facility] PM-Rate Modulation Deceleration Exercise [facility] PM-Rate Modulation Threshold MediumLow [facility] RA Bipolar Impedance ohms 437 ohm [facility] RA Unipolar Impedance ohms 399 ohm [facility] RV Bipolar Impedance ohms 532 ohm [facility] RV Unipolar Impedance 494 ohm [facility] Serial Number [id number] [facility] Serial Number [id number] [facility] Serial Number [id number] [facility] Thresh RA Capture Amplitude (volts) 0.5 V [facility] Thresh RA Capture Duration (ms) 0.4 ms [facility] Thresh RA Sensing Amplitude (mvolts) 2.25 mV [facility] Thresh RV Capture Amplitude (volts) 0.75 V [facility] Thresh RV Capture Duration (ms) 0.4 ms [facility] Thresh RV Sensing Amplitude (mvolts) 12.875 mV [facility] Tracking Rate (bpm) 130 {beats}/min [facility] Keegan 06-07-2023 JESSICA Telephone (CARDAV) -- CASSI RODRIGEZ ([id number]) 1950 F Date Time Provider Department 06/07/23 [...] Date Reviewed: 09/10/2022 Reviewed by: Lauren Otero APRN.BRIAR CUTTER - Fully Assessed Reason for Visit: pacemaker [...] by SALO FREEDMAN RN on 06/07/23 Normal [facility] Creatinine (Bld) [Mass/Vol]O rdered By: Broderick Howard on 06-04-2023 Creatinine [Mass/Vol] 1.6 mg/dL 0.6-1.3 [facility] Comment on above: ER/ESD physician is notified/shown all ISTAT results.Critical values may be confirmed by laboratory testing ifdeemed necessary by ER attending doctor. XR pre/post mri xrayon 06-04 XR pre/post mri xray [facility] Main [place] [id number] MRI Report Signed Patient: Cassi Rodrigez MR#: [id number] 8 : 1950 Acct:[id number] Age/Sex: 73 / F ADM Date: 06/04/23 Loc: Room: Type: [facility] Attending Dr: Broderick Howard DO Copies to: Broderick Howard DO Ordering Provider: Broderick Howard DO Date of Service: 06/04/23 MR/MR lumbar spine wo/w con: M47.27 ([id number]) XR/XR pre/post mri xray: M47.27 MR lumbar [...] Arnel Simon M.D.06/04/2023 1:31 PM Dictation Location: [place] [address] Transcribed By: TONO 06/04/23 7924 Dictated By: Arnel Simon II, MD 06/04/23 1313 Signed By: 06/04/23 1331 [facility] Physician [facility] No Panel Informationon 02-24 BLANK _ [facility] Implant Date 05/22/2015 [facility] Model 5076 CapSureFix [employer] PACEMAKER REMOTE CHECKon AV Delay Adaptive Paced Minimum (ms) 180 ms [facility] AV Delay Adaptive Sensed Minimum (ms) 150 ms [facility] AV Delay Adaptive Status DISABLED [facility] Battery Voltage (volts) 2.95 V [facility] Godfrey RA Pacing Amplitude (volts) 1.5 V [facility] Godfrey RA Pacing Polarity BI [facility] Godfrey RA Pacing Pulse Width (ms) 0.4 ms [facility] Godfrey RA Sensing Amplitude (mvolts) 0.3 mV [facility] Godfrey RA Sensing Blanking Period (ms) 150 ms [facility] Godfrey RA Sensing Polarity BI [facility] Godfrey RA Sensing Refractory Period (ms) Auto [facility] Godfrey RV Pacing Amplitude (volts) 2 V [facility] Godfrey RV Pacing Polarity BI [facility] Godfrey RV Pacing Pulse Width (ms) 0.4 ms [facility] Godfrey RV Sensing Amplitude (mvolts) 0.9 mV [facility] Godfrey RV Sensing Blanking Period (ms) 200 ms [facility] Godfrey RV Sensing Polarity BI [facility] Hysteresis Rate (bpm) DISABLED [facility] Lead1 Mfg MDT [facility] Lead2 Mfg MDT [facility] Location RV [facility] Location RA [facility] Lower Rate (bpm) 60 {beats}/min [facility] Max Sensor Rate (bmp) 130 {beats}/min [facility] Model [id number] COBOS [facility] PM-Device Mfg MDT [facility] PM-Percent Pacing (A) 99.67 % [facility] PM-Percent Pacing (V) 0.2 % [facility] PM-PMT Intervention ENABLED [facility] PM-PVC Intervention ENABLED [facility] PM-Rate Modulation Acceleration Reaction 30 s [facility] PM-Rate Modulation ADL Rate (bpm) 100 {beats}/min [facility] PM-Rate Modulation Deceleration Exercise [facility] PM-Rate Modulation Threshold MediumLow [facility] RA Bipolar Impedance ohms 418 ohm [facility] RA Unipolar Impedance ohms 380 ohm [facility] RV Bipolar Impedance ohms 532 ohm [facility] RV Unipolar Impedance 494 ohm [facility] Serial Number [id number] [facility] Serial Number [id number] [facility] Serial Number [id number] [facility] Thresh RA Capture Amplitude (volts) 0.5 V [facility] Thresh RA Capture Duration (ms) 0.4 ms [facility] Thresh RA Sensing Amplitude (mvolts) 2.25 mV [facility] Thresh RV Capture Amplitude (volts) 0.875 V [facility] Thresh RV Capture Duration (ms) 0.4 ms [facility] Thresh RV Sensing Amplitude (mvolts) 12.875 mV [facility] Tracking Rate (bpm) 130 {beats}/min [facility] No Panel Informationon 11-26 BLANK _ [facility] Implant Date 05/22/2015 [facility] Model 5076 [employer] [facility] PACEMAKER REMOTE CHECKon AV Delay Adaptive Paced Minimum (ms) 180 ms [facility] AV Delay Adaptive Sensed Minimum (ms) 150 ms [facility] AV Delay Adaptive Status DISABLED [facility] Battery Voltage (volts) 2.96 V [facility] Godfrey RA Pacing Amplitude (volts) 1.5 V [facility] Godfrey RA Pacing Polarity BI [facility] Godfrey RA Pacing Pulse Width (ms) 0.4 ms [facility] Godfrey RA Sensing Amplitude (mvolts) 0.3 mV [facility] Godfrey RA Sensing Blanking Period (ms) 150 ms [facility] Godfrey RA Sensing Polarity BI [facility] Godfrey RA Sensing Refractory Period (ms) Auto [facility] Godfrey RV Pacing Amplitude (volts) 2 V [facility] Godfrey RV Pacing Polarity BI [facility] Godfrey RV Pacing Pulse Width (ms) 0.4 ms [facility] Godfery RV Sensing Amplitude (mvolts) 0.9 mV [facility] Godfrey RV Sensing Blanking Period (ms) 200 ms [facility] Godfrey RV Sensing Polarity BI [facility] Hysteresis Rate (bpm) DISABLED [facility] Lead1 Mfg MDT [facility] Lead2 Mfg MDT [facility] Location RV [facility] Location RA [facility] Lower Rate (bpm) 60 {beats}/min [facility] Max Sensor Rate (bmp) 130 {beats}/min [facility] Model [id number] COBOS [facility] PM-Device Jorge KELLER [facility] PM-Percent Pacing (A) 99.43 % [facility] PM-Percent Pacing (V) 0.17 % [facility] PM-PMT Intervention ENABLED [facility] PM-PVC Intervention ENABLED [facility] PM-Rate Modulation Acceleration Reaction 30 s [facility] PM-Rate Modulation ADL Rate (bpm) 100 {beats}/min [facility] PM-Rate Modulation Deceleration Exercise [facility] PM-Rate Modulation Threshold MediumLow [facility] RA Bipolar Impedance ohms 437 ohm [facility] RA Unipolar Impedance ohms 399 ohm [facility] RV Bipolar Impedance ohms 532 ohm [facility] RV Unipolar Impedance 494 ohm [facility] Serial Number [id number] [facility] Serial Number [id number] [facility] Serial Number [id number] [facility] Thresh RA Capture Amplitude (volts) 0.5 V [facility] Thresh RA Capture Duration (ms) 0.4 ms [facility] Thresh RA Sensing Amplitude (mvolts) 1.875 mV [facility] Thresh RV Capture Amplitude (volts) 0.75 V [facility] Thresh RV Capture Duration (ms) 0.4 ms [facility] Thresh RV Sensing Amplitude (mvolts) 11.75 mV [facility] Tracking Rate (bpm) 130 {beats}/min [facility] No Panel Informationon 08-26 BLANK _ [facility] Implant Date 05/22/2015 [facility] Model 5076 [employer] [facility] PACEMAKER REMOTE CHECKon AV Delay Adaptive Paced Minimum (ms) 180 ms [facility] AV Delay Adaptive Sensed Minimum (ms) 150 ms [facility] AV Delay Adaptive Status DISABLED [facility] Battery Voltage (volts) 2.96 V [facility] Godfrey RA Pacing Amplitude (volts) 1.5 V [facility] Godfrey RA Pacing Polarity BI [facility] Godfrey RA Pacing Pulse Width (ms) 0.4 ms [facility] Godfrey RA Sensing Amplitude (mvolts) 0.3 mV [facility] Godfrey RA Sensing Blanking Period (ms) 150 ms [facility] Godfrey RA Sensing Polarity BI [facility] Godfrey RA Sensing Refractory Period (ms) Auto [facility] Godfrey RV Pacing Amplitude (volts) 2 V [facility] Godfrey RV Pacing Polarity BI [facility] Godfrey RV Pacing Pulse Width (ms) 0.4 ms [facility] Godfrey RV Sensing Amplitude (mvolts) 0.9 mV [facility] Godfrey RV Sensing Blanking Period (ms) 200 ms [facility] Godfrey RV Sensing Polarity BI [facility] Hysteresis Rate (bpm) DISABLED [facility] Lead1 Mfg MDT [facility] Lead2 Mfg MDT [facility] Location RV [facility] Location RA [facility] Lower Rate (bpm) 60 {beats}/min [facility] Max Sensor Rate (bmp) 130 {beats}/min [facility] Model [id number] COBOS [facility] PM-Device Mfg MDT [facility] PM-Percent Pacing (A) 99.6 % [facility] PM-Percent Pacing (V) 0.24 % [facility] PM-PMT Intervention ENABLED [facility] PM-PVC Intervention ENABLED [facility] PM-Rate Modulation Acceleration Reaction 30 s [facility] PM-Rate Modulation ADL Rate (bpm) 100 {beats}/min [facility] PM-Rate Modulation Deceleration Exercise [facility] PM-Rate Modulation Threshold MediumLow [facility] RA Bipolar Impedance ohms 437 ohm [facility] RA Unipolar Impedance ohms 399 ohm [facility] RV Bipolar Impedance ohms 532 ohm [facility] RV Unipolar Impedance 494 ohm [facility] Serial Number [id number] [facility] Serial Number [id number] [facility] Serial Number [id number] [facility] Thresh RA Capture Amplitude (volts) 0.5 V [facility] Thresh RA Capture Duration (ms) 0.4 ms [facility] Thresh RA Sensing Amplitude (mvolts) 2.5 mV [facility] Thresh RV Capture Amplitude (volts) 0.75 V [facility] Thresh RV Capture Duration (ms) 0.4 ms [facility] Thresh RV Sensing Amplitude (mvolts) 12.125 mV [facility] Tracking Rate (bpm) 130 {beats}/min [facility] US KIDNEYS BLADDERon -26-2 022 KIDNEYS BLADDER EXAMINATION: KIDN EYS BLADDER HISTORY: Chronic kidney disease due [...] EBEN BABCOCK Date: 2022-08-10 19:30 Normal [facility] UA RANDOM W/MICROSCOPICon BACTERIA NONE SEEN Normal NONE SEEN [facility] Comment on above: Performed By: #### U AMIC #### [facility] [address] [place] [address] Dr. Leah Felipe Bilirubin Ql (U) Negative Normal NEGATIVE [facility] Comment on above: Performed By: #### U AMIC #### [facility] [address] [place] [address] Dr. Leah Felipe CAST NONE SEEN Normal NONE SEEN [facility] Comment on above: Performed By: #### U AMIC #### [facility] [address] [place] [address] Dr. Leah Felipe Clarity (U) CLEAR Normal CLEAR [facility] Comment on above: Performed By: #### U AMIC #### [facility] [address] [place] [address] [address] Leah Felipe Color (U) LT. YELLOW Normal YELLOW [facility] Comment on above: Performed By: #### U AMIC #### [facility] [address] [place] [address] Dr. Leah Felipe Crystals LM Nom (Urine sed) NONE SEEN Normal NONE SEEN [facility] Comment on above: Performed By: #### U AMIC #### [facility] [address] [place] [address] Dr. Leah Felipe Epithelial cells LM Ql (Urine sed) FEW Abnormal NONE SEEN /RARE [facility] Comment on above: Performed By: #### U AMIC #### [facility] [address] [place] [address] Dr. Leah Felipe Glucose Ql (U) Negative Normal NEGATIVE [facility] Comment on above: Performed By: #### U AMIC #### [facility] [address] [place] [address] Dr. Leah Felipe Hemoglobin Ql (U) Negative Normal NEGATIVE [facility] Comment on above: Performed By: #### U AMIC #### [facility] [address] [place] [address] Dr. Leah Felipe Ketones Ql (U) Negative Normal NEGATIVE [facility] Comment on above: Performed By: #### U AMIC #### [facility] [address] [place] [address] Dr. Leah Felipe LEUKOCYTES Negative Normal NEGATIVE [facility] Comment on above: Performed By: #### U AMIC #### [facility] [address] [place] [address] Dr. Leah Felipe MUCOUS NONE SEEN Normal NONE SEEN [facility] Comment on above: Performed By: #### U AMIC #### [facility] [address] [place] [address] Dr. Leah Felipe Nitrite Ql (U) Negative Normal NEGATIVE [facility] Comment on above: Performed By: #### U AMIC #### [facility] [address] [place] [address] Dr. Leah Felipe pH (U) 6.0 [pH] Normal 5-9 [facility] Comment on above: Performed By: #### U AMIC #### [facility] [address] [place] [address] Dr. Leah Felipe RBC NONE SEEN Abnormal 0-2 [facility] Comment on above: Performed By: #### U AMIC #### [facility] [address] [place] [address] Dr. Leah Felipe SPEC GRAVITY 1.025 Normal 1.005-<=1. 025 [facility] Comment on above: Performed By: #### U AMIC #### [facility] [address] [place] [address] Dr. Leah Felipe UA PROTEIN Negative Normal NEGATIVE/ TRACE [facility] Comment on above: Performed By: #### U AMIC #### [facility] [address] [place] [address] Dr. Leah Felipe Urobilinogen Qn (U) 0.2 {Lin'U}/dL Normal 0.2 - 1. 0 [facility] Comment on above: Performed By: #### U AMIC #### [facility] [address] [place] [address] Dr. Leah Felipe WBC 0-2 Abnormal NONE SEEN [facility] Comment on above: Performed By: #### U AMIC #### [facility] [address] [place] [address] Dr. Leah Felipe URINE T PROTEIN CREAT RATIOo n 08-03-2022 Protein (U) [Mass/Vol] 30.2 mg/dL Critically high <=12.0 [facility] Comment on above: Performed By: #### U RTPCR #### [facility] [address] [place] [address] Dr. Leah Felipe UR PROT CREAT RAT 0.19 Normal [facility] Comment on above: Performed By: #### U RTPCR #### [facility] [address] [place] [address] Dr. Leah Felipe URINE CREAT 159.67 mg/dL Normal 20.00-300. 00 [facility] Comment on above: Performed By: #### U RTPCR #### [facility] [address] [place] [address] Dr. Leah Felipe CBC AUTO DIFFon 07-31-2022 BASO # 0.0 103/ul Normal 0.0-0.1 [facility] Comment on above: Performed By: #### C BC #### [facility] [address] [place] [address] Dr. Leah Felipe Basophils/100 WBC (Bld) 0.6 % Normal 0.2-2.0 [facility] Comment on above: Performed By: #### C BC #### [facility] [address] [place] [address] Dr. Leah Felipe EO # 0.3 103/ul Normal 0.0-0.7 [facility] Comment on above: Performed By: #### C BC #### [facility] [address] [place] [address] Dr. Leah Felipe Eosinophils/100 WBC (Bld) 5.5 % Normal 0.9-7.0 [facility] Comment on above: Performed By: #### C BC #### [facility] [address] [place] [address] Dr. Leah Felipe Erythrocyte distribution width (RBC) [Ratio] 12.5 % Normal 11.0-15.0 [facility] Comment on above: Performed By: #### C BC #### [facility] [address] [place] [address] Dr. Leah Felipe Hematocrit (Bld) [Volume fraction] 39.2 % Normal 36.0-48.0 [facility] Comment on above: Performed By: #### C BC #### [facility] [address] [place] [address] Dr. Leah Felipe Hemoglobin (Bld) [Mass/Vol] 12.5 g/dL Normal 12.0-16.0 [facility] Comment on above: Performed By: #### C BC #### [facility] [address] [place] [address] Dr. Leah Felipe IG # 0.01 10e3/ul Normal 0.00-0.03 [facility] Comment on above: Performed By: #### C BC #### [facility] [address] [place] [address] Dr. Leah Felipe IG % 0.2 % Normal 0.0-0.5 [facility] Comment on above: Performed By: #### C BC #### [facility] [address] [place] [address] Dr. Leah Felipe LYMPH # 0.8 103/ul Critically low 1.2-3.8 [facility] Comment on above: Performed By: #### C BC #### [facility] [address] [place] [address] Dr. Leah Felipe Lymphocytes/100 WBC (Bld) 16.0 % Critically low 20.5-60.0 [facility] Comment on above: Performed By: #### C BC #### [facility] [address] [place] [address] Dr. Leah Felipe MANUAL DIFF REQ NO Normal [facility] Comment on above: Performed By: #### C BC #### [facility] [address] [place] [address] Dr. Leah Felipe MCH (RBC) [Entitic mass] 30.9 pg Normal 26.7-34.0 [facility] Comment on above: Performed By: #### C BC #### [facility] [address] [place] [address] Dr. Leah Felipe MCHC (RBC) [Mass/Vol] 31.9 g/dL Normal 29.9-35.2 [facility] Comment on above: Performed By: #### C BC #### [facility] [address] [place] [address] Dr. Leah Felipe MCV (RBC) [Entitic vol] 97.0 fL Normal 81.0-99.0 [facility] Comment on above: Performed By: #### C BC #### [facility] [address] [place] [address] Dr. Leah Felipe MONO # 0.4 103/ul Normal 0.3-0.8 [facility] Comment on above: Performed By: #### C BC #### [facility] [address] [place] [address] Dr. Leah Felipe Monocytes/100 WBC (Bld) 8.7 % Normal 1.7-12.0 [facility] Comment on above: Performed By: #### C BC #### [facility] [address] [place] [address] Dr. Leah Felipe NEUT # 3.4 103/ul Normal 1.4-6.5 [facility] Comment on above: Performed By: #### C BC #### [facility] [address] [place] [address] Dr. Leah Felipe Neutrophils/100 WBC (Bld) 69.0 % Normal 43.0-75.0 [facility] Comment on above: Performed By: #### C BC #### [facility] [address] [place] [address] Dr. Leah Felipe Platelet mean volume (Bld) [Entitic vol] 9.1 fL Critically low 9.5-13.5 [facility] Comment on above: Performed By: #### C BC #### [facility] [address] [place] [address] [address] Leah Felipe PLT 196 103/ul Normal 150-450 [facility] Comment on above: Performed By: #### C BC #### [facility] [address] [address] [address] Leah Felipe RBC 4.04 106/ul Critically low 4.20-5.40 [facility] Comment on above: Performed By: #### C BC #### [facility] [address] [place] [address] [address] Leah Felipe WBC 5.0 103/ul Normal 4.0-11.0 [facility] Comment on above: Performed By: #### C BC #### [facility] [address] [place] [address] Dr. Leah Felipe PROF CHEM 8 (BAS METB)on Anion gap [Moles/Vol] 9.8 mmol/L Normal [facility] Comment on above: Performed By: #### B MP, TSH #### [facility] [address] [place] [address] Dr. Leah Felipe Calcium [Mass/Vol] 8.2 mg/dL Critically low 8.5-10.1 [facility] Comment on above: Performed By: #### B MP, TSH #### [facility] [address] [place] [address] Dr. Leah Felipe Chloride [Moles/Vol] 107 mmol/L Normal 98-107 [facility] Comment on above: Performed By: #### B MP, TSH #### [facility] [address] [place] [address] Dr. Leah Felipe CO2 [Moles/Vol] 26.4 mmol/L Normal 21.0-32.0 [facility] Comment on above: Performed By: #### B MP, TSH #### [facility] [address] [place] [address] Dr. Leah Felipe Creatinine [Mass/Vol] 1.53 mg/dL Critically high 0.55-1.02 [facility] Comment on above: Performed By: #### B MP, TSH #### [facility] [facility] [address] [place] [address] Dr. Leah Felipe EGFR-AF [place] 40 mL/min/1.73m2 Critically low >=60 [facility] Comment on above: Performed By: #### B MP, TSH #### [facility] [address] [place] [address] Dr. Leah Felipe EGFR-NON AF [place] 33 mL/min/1.73m2 Critically low >=60 [facility] Comment on above: Performed By: #### B MP, TSH #### [facility] [address] [place] [address] Dr. Leah Felipe Glucose [Mass/Vol] 108 mg/dL Critically high 74-106 T [facility] Comment on above: Performed By: #### B MP, TSH #### [facility] [address] [place] [address] Dr. Leah eFlipe Potassium [Moles/Vol] 4.2 mmol/L Normal 3.5-5.1 [facility] Comment on above: Performed By: #### B MP, TSH #### [facility] [address] [place] [address] Dr. Leah Felipe Sodium [Moles/Vol] 139 mmol/L Normal 136-145 [facility] Comment on above: Performed By: #### B MP, TSH #### [facility] [address] [place] [address] Dr. Leah Felipe Urea nitrogen [Mass/Vol] 26.0 mg/dL Critically high 7.0-18.0 [facility] Comment on above: Performed By: #### B MP, TSH #### [facility] [address] [place] [address] Dr. Leah Felipe Urea nitrogen/Creatinine [Mass ratio] 17.0 mg/mg Normal [facility] Comment on above: Performed By: #### B MP, TSH #### [facility] [address] [place] [address] Dr. Leah Felipe TSHon 07-31-2022 TSH 1.650 uIU/mL Normal 0.358-3.74 0 [facility] Comment on above: Performed By: #### B MP, TSH #### [facility] [address] [place], [place] [address] Dr. Leah Felipe VITAMIN B12on 07-31-2022 Cobalamin (Vitamin B12) [Mass/Vol] 378.0 pg/mL Normal 193.0-986. 0 [facility] Comment on above: Performed By: #### V ITB12 #### [facility] [address], [place] [address] Dr. Leah Felipe MG MAMM SCREEN 3D FAVIOLA CADon 07-29-2022 MG MAMM SCREEN 3D FAVIOLA CAD Patient: CASSI RODRIGEZ Exam Date: 07/29/2022 : 1950 Gender:F Ordering : DR BRODERICK HOWARD D.O. Admission #: [id number] Family : Order #: [id number] CLICK HERE TO VIEW EXAM RADIOLOGY REPORT [...] pancreatic cancer at age 64. LOCATION: [facility] BREAST COMPOSITION: Heterogeneously dense,which may obscure [...] MD on 07/29/2022 at 11:19 Normal [facility] CBC panel Auto (Bld)on 07-23 Erythrocyte distribution width (RBC) [Ratio] 12.5 % Normal 11.5-15.0 [facility] Comment on above: Order Comment: Speci men Type: BLOOD SPECIMEN Ordering Facility: [facility] Address: [address] [place] [address] Performed By: #### 5 8410-2 #### [facility] CLIA [id number] [place] Hematocrit (Bld) [Volume fraction] 39.3 % Normal 36.0-46.0 [facility] Comment on above: Order Comment: Speci men Type: BLOOD SPECIMEN Ordering Facility: [facility] Address: [address] [place] [address] Performed By: #### 5 8410-2 #### [facility] IA [id number] [address] [place] [address] [place] Hemoglobin (Bld) [Mass/Vol] 12.5 g/dL Normal 11.5-15.5 [facility] Comment on above: Order Comment: Speci men Type: BLOOD SPECIMEN Ordering Facility: [facility] Address: [address] [place] [address] Performed By: #### 5 8410-2 #### [facility] [place] [id number] [address] [place] [address] [place] MCH (RBC) [Entitic mass] 31.3 pg Normal 26.0-34.0 [facility] Comment on above: Order Comment: Speci men Type: BLOOD SPECIMEN Ordering Facility: [facility] Address: [address] [place] [address] Performed By: #### 5 8410-2 #### [facility] IA [id number] [address] [place] [address] [place] MCHC (RBC) [Mass/Vol] 31.8 g/dL Normal 30.5-36.0 [facility] Comment on above: Order Comment: Speci men Type: BLOOD SPECIMEN Ordering Facility: [facility] Address: [address] [place], [place] [id number] Performed By: #### 5 8410-2 #### [facility] IA [id number] [address] [place] [address] [place] MCV (RBC) [Entitic vol] 98.5 fL Normal 80.0-100.0 [facility] Comment on above: Order Comment: Speci men Type: BLOOD SPECIMEN Ordering Facility: [facility] Address: [address] [place], [place] [id number] Performed By: #### 5 8410-2 #### [facility] IA [id number] [place] Nucleated RBC (Bld) [#/Vol] 10*3/uL Normal <0.01 [facility] Comment on above: Order Comment: Speci men Type: BLOOD SPECIMEN Ordering Facility: [facility] Address: [address] [place], [place] [id number] Performed By: #### 5 8410-2 #### [facility] IA [id number] [address] [place] [address] [place] Platelet mean volume (Bld) [Entitic vol] 9.5 fL Normal 9.0-12.7 [facility] Comment on above: Order Comment: Speci men Type: BLOOD SPECIMEN Ordering Facility: [facility] Address: [address] [place], [place] [id number] Performed By: #### 5 8410-2 #### [facility] IA [id number] [address] [place] [address] [place] Platelets (Bld) [#/Vol] 214 10*3/uL Normal 150-400 [facility] Comment on above: Order Comment: Speci men Type: BLOOD SPECIMEN Ordering Facility: [facility] Address: [address] [place], [place] [id number] Performed By: #### 5 8410-2 #### [facility] IA [id number] [address] [place] [address] [place] RBC (Bld) [#/Vol] 3.99 10*6/uL Normal 3.90-5.20 [facility] Comment on above: Order Comment: Speci men Type: BLOOD SPECIMEN Ordering Facility: [facility] Address: [address] [place] [address] Performed By: #### 5 8410-2 #### [facility] CLIA [id number] OF [facility] WBC (Bld) [#/Vol] 5.85 10*3/uL Normal 3.70-11.00 [facility] Comment on above: Order Comment: Speci men Type: BLOOD SPECIMEN Ordering Facility: [facility] Address: [address] [place] [address] Performed By: #### 5 8410-2 #### [facility] CLIA [id number] [place] OF [facility] Erythrocyte distribution width (RBC) [Ratio] 12.5 % 11.5 - 15.0 % [facility] Hematocrit (Bld) [Volume fraction] 39.3 % 36.0 - 46.0 % [facility] Hemoglobin (Bld) [Mass/Vol] 12.5 g/dL 11.5 - 15.5 g/dL [facility] MCH (RBC) [Entitic mass] 31.3 pg 26.0 - 34.0 pg [facility] MCHC (RBC) [Mass/Vol] 31.8 g/dL 30.5 - 36.0 g/dL [facility] MCV (RBC) [Entitic vol] 98.5 fL 80.0 - 100.0 fL [facility] Nucleated RBC (Bld) [#/Vol] <0.01 k/uL [facility] Platelet mean volume (Bld) [Entitic vol] 9.5 fL 9.0 - 12.7 fL [facility] Platelets (Bld) [#/Vol] 214 10*3/uL 150 - 400 k/uL [facility] RBC (Bld) [#/Vol] 3.99 10*6/uL 3.90 - 5.20 m/uL [facility] WBC (Bld) [#/Vol] 5.85 10*3/uL 3.70 - 11.00 k/uL [facility] TSH BLDon 07-23-2022 TSH Qn 1.890 m[IU]/L 0.270 - 4.200 mIU/L [facility] TSH SerPl-aCncon 07-23-2022 TSH Qn 1.890 m[IU]/L Normal 0.270-4.20 0 [facility] Comment on above: Order Comment: Speci men Type: BLOOD SPECIMEN Ordering Facility: [facility] Address: [facility] [place] [address] Performed By: #### 3 016-3 #### [facility] CLIA [id number] [facility] [place] [address] [place] Vital Signs Date Time Vital Sign Value Performing Clinician Facility 06-08-2024 14:26-0400 Body height 157.48 cm DO Broderick Ball Work Phone: [facility] 06-08-2024 14:26-0400 Body mass index (BMI) [Ratio] 34 kg/m2 DO Broderick Ball Work Phone: [facility] 06-08-2024 14:26-0400 Body temperature 97.6 [degF] DO Brodercik Ball Work Phone: [facility] 06-08-2024 14:26-0400 Body weight 84.36 kg DO Broderick Ball Work Phone: [facility] 06-08-2024 14:26-0400 Diastolic blood pressure 70 mm[Hg] DO Broderick Ball Work Phone: [facility] 06-08-2024 14:26-0400 Heart rate 73 /min DO Broderick Ball Work Phone: [facility] 06-08-2024 14:26-0400 Respiratory rate 16 /min DO Broderick Ball Work Phone: [facility] 06-08-2024 14:26-0400 SaO2% (BldA) [Mass fraction] 99 % DO Broderick Ball Work Phone: [facility] 06-08-2024 14:26-0400 Systolic blood pressure 140 mm[Hg] DO Broderick Ball Work Phone: [facility] 05-30-2024 07:27-0400 Body height 157.48 cm DO Broderick Ball Work Phone: [facility] 05-30-2024 07:27-0400 Body weight 86.18 kg DO Broderick Ball Work Phone: [facility] 05-23-2024 11:23-0400 Body height 157.5 cm Randa Reilly MD Work Phone: [facility] 05-23-2024 11:23-0400 Body mass index (BMI) [Ratio] 34.55 kg/m2 Randa Reilly MD Work Phone: [facility] 05-23-2024 11:23-0400 Body weight 85.68 kg Randa Reilly MD Work Phone: [facility] 05-23-2024 11:23-0400 Diastolic blood pressure 72 mm[Hg] Randa Reilly MD Work Phone: [facility] 05-23-2024 11:23-0400 Heart rate 85 /min Randa Reilly MD Work Phone: [facility] 05-23-2024 11:23-0400 Systolic blood pressure 133 mm[Hg] Randa Reilly MD Work Phone: [facility] 04-21-2024 10:00-0400 Body height 157.48 cm DO Broderick Ball Work Phone: [facility] 04-21-2024 10:00-0400 Body mass index (BMI) [Ratio] 34.5 kg/m2 DO Broderick Ball Work Phone: [facility] 04-21-2024 10:00-0400 Body weight 85.72 kg DO Broderick Ball Work Phone: [facility] 03-29-2024 13:34-0400 Body height 157.48 cm DO Broderick Ball Work Phone: [facility] 03-29-2024 13:34-0400 Body mass index (BMI) [Ratio] 33.3 kg/m2 DO Broderick Ball Work Phone: [facility] 03-29-2024 13:34-0400 Body weight 82.78 kg DO Broderick Ball Work Phone: [facility] 03-29-2024 13:34-0400 Diastolic blood pressure 77 mm[Hg] DO Broderick Ball Work Phone: [facility] 03-29-2024 13:34-0400 Heart rate 73 /min DO Broderick Ball Work Phone: [facility] 03-29-2024 13:34-0400 Respiratory rate 12 /min DO Broderick Ball Work Phone: [facility] 03-29-2024 13:34-0400 Systolic blood pressure 124 mm[Hg] DO Broderick Ball Work Phone: [facility] 03-27-2024 11:25-0400 Body height 157.48 cm DO Broderick Ball Work Phone: [facility] 03-27-2024 11:25-0400 Body weight 84.36 kg DO Broderick Ball Work Phone: [facility] 03-07-2024 08:53-0400 Body height 157.5 cm Randa Reilly MD Work Phone: [facility] 03-07-2024 08:53-0400 Body mass index (BMI) [Ratio] 34.06 kg/m2 Randa Reilly MD Work Phone: [facility] 03-07-2024 08:53-0400 Body weight 84.46 kg Randa Reilly MD Work Phone: [facility] 03-07-2024 08:53-0400 Diastolic blood pressure 72 mm[Hg] Randa Reilly MD Work Phone: [facility] 03-07-2024 08:53-0400 Heart rate 85 /min Randa Reilly MD Work Phone: [facility] 03-07-2024 08:53-0400 Systolic blood pressure 133 mm[Hg] Randa Reilly MD Work Phone: [facility] 02-09-2024 14:58-0400 Body height 161.29 cm [facility] 02-09-2024 14:58-0400 Body mass index (BMI) [Ratio] 33.5 kg/m2 [facility] 02-09-2024 14:58-0400 Body weight 87.08 kg [facility] 02-09-2024 14:58-0400 Diastolic blood pressure 71 mm[Hg] [facility] 02-09-2024 14:58-0400 Heart rate 78 /min [facility] 02-09-2024 14:58-0400 Respiratory rate 12 /min [facility] 02-09-2024 14:58-0400 Systolic blood pressure 114 mm[Hg] [facility] 12-23-2023 09:02-0500 Body height 157.5 cm Alejandro Villar MD, PhD Work Phone: [facility] 12-23-2023 09:02-0500 Body temperature 97.59 [degF] Alejandro Villar MD, PhD Work Phone: [facility] 12-23-2023 09:02-0500 Body weight 86.64 kg Alejandro Villar MD, PhD Work Phone: [facility] 12-23-2023 09:02-0500 Diastolic blood pressure 72 mm[Hg] Alejandro Villar MD, PhD Work Phone: [facility] 12-23-2023 09:02-0500 Heart rate 85 /min Alejandro Villar MD, PhD Work Phone: [facility] 12-23-2023 09:02-0500 SaO2% (BldA) [Mass fraction] 100 % Alejandro Villar MD, PhD Work Phone: [facility] 12-23-2023 09:02-0500 Systolic blood pressure 133 mm[Hg] Alejandro Villar MD, PhD Work Phone: [facility] 09-08-2023 14:50-0400 Body height 157.5 cm Mirian Bell [employer]PERATIONS RECRUITER[employer] Work Phone: [facility] 09-08-2023 14:50-0400 Body weight 86.5 kg Mirian Bell OPERATIONS RECRUITER.[facility] Work Phone: [facility] 09-08-2023 14:50-0400 Diastolic blood pressure 64 mm[Hg] Mirian Bell OPERATIONS RECRUITER.[employer] Work Phone: [facility] 09-08-2023 14:50-0400 Heart rate 62 /min Mirian Bell OPERATIONS RECRUITER.[facility] Work Phone: [facility] 09-08-2023 14:50-0400 Systolic blood pressure 130 mm[Hg] Mirian Bell OPERATIONS RECRUITER.[facility] Work Phone: [facility] 08-25-2023 10:20-0400 Body height 161.29 cm Niki Blades Other [employer] Other 08-25-2023 10:20-0400 Body mass index (BMI) [Ratio] 34.35 kg/m2 Niki Blades Other [employer] Other 08-25-2023 10:20-0400 Body weight 89.36 kg Niki Blades Other [employer] Other 08-16-2023 10:00-0400 Body height 161.29 cm Niki Blades Other [employer] Other 08-16-2023 10:00-0400 Body mass index (BMI) [Ratio] 34.35 kg/m2 Niki Blades Other [employer] Other 08-16-2023 10:00-0400 Body weight 89.36 kg Niki Blades Other [employer] Other 08-05-2023 07:21-0400 Body temperature 97.8 [degF] DO Broderick Ball Work Phone: [facility] 08-05-2023 07:21-0400 Diastolic blood pressure 73 mm[Hg] DO Broderick Ball Work Phone: [facility] 08-05-2023 07:21-0400 Heart rate 63 /min DO Broderick Ball Work Phone: [facility] 08-05-2023 07:21-0400 Respiratory rate 14 /min DO Broderick Ball Work Phone: [facility] 08-05-2023 07:21-0400 SaO2% (BldA) [Mass fraction] 97 % DO Broderick Ball Work Phone: [facility] 08-05-2023 07:21-0400 Systolic blood pressure 117 mm[Hg] DO Broderick Ball Work Phone: [facility] 08-05-2023 06:00-0400 Body weight 96.7 kg DO Broderick Ball Work Phone: [facility] 08-04-2023 00:00-0400 Inhaled oxygen flow rate 3 L/min DO Broderick Ball Work Phone: [facility] 08-03-2023 07:02-0400 Body height 157.48 cm DO Broderick Ball Work Phone: [facility] 08-03-2023 07:02-0400 Body mass index (BMI) [Ratio] 35 kg/m2 DO Broderick Ball Work Phone: [facility] 07-07-2023 14:20-0400 Body height 161.29 cm Niki Blades Other [facility] [facility] [employer] Other 07-07-2023 14:20-0400 Body mass index (BMI) [Ratio] 33.65 kg/m2 Niki Blades Other [employer] Other 07-07-2023 14:20-0400 Body weight 87.54 kg Niki Blades Other [employer] Other 07-07-2023 14:20-0400 Diastolic blood pressure 80 mm[Hg] Niki Blades Other [employer] Other 07-07-2023 14:20-0400 Systolic blood pressure 142 mm[Hg] Niki Blades Other [employer] Other 06-04-2023 08:42-0400 Body height 162.56 cm DO Broderick Ball Work Phone: [facility] 06-04-2023 08:42-0400 Body weight 87.08 kg DO Broderick Ball Work Phone: [facility] 05-06-2023 14:30-0400 Body height 161.29 cm Bertram Sanders Other [employer] Other 05-06-2023 14:30-0400 Body mass index (BMI) [Ratio] 33.3 kg/m2 Bertram Sanders Other [employer] Other 05-06-2023 14:30-0400 Body weight 86.64 kg Bertram Sanders Other [employer] Other 05-06-2023 14:30-0400 Diastolic blood pressure 70 mm[Hg] Bretram Didavidy Other [employer] Other 05-06-2023 14:30-0400 Systolic blood pressure 125 mm[Hg] Bertram Didavidy Other [employer] Other 05-03-2023 14:30-0400 Body height 161.29 cm Broderick Ball Other [employer] Other 05-03-2023 14:30-0400 Body mass index (BMI) [Ratio] 33.16 kg/m2 Broderick Ball Other [employer] Other 05-03-2023 14:30-0400 Body weight 86.27 kg Broderick Ball Other [employer] Other 05-03-2023 14:30-0400 Diastolic blood pressure 71 mm[Hg] Broderick Ball Other [employer] Other 05-03-2023 14:30-0400 Respiratory rate 12 /min Broderick Ball Other [employer] Other 05-03-2023 14:30-0400 Systolic blood pressure 120 mm[Hg] Broderick Ball Other [employer] Other 03-25-2023 11:00-0400 Body height 161.29 cm Broderick Ball Other [employer] Other 03-25-2023 11:00-0400 Body mass index (BMI) [Ratio] 33.61 kg/m2 Broderick Ball Other [employer] Other 03-25-2023 11:00-0400 Body weight 87.45 kg Broderick Ball Other [employer] Other 03-25-2023 11:00-0400 Diastolic blood pressure 78 mm[Hg] Broderick Ball Other [employer] Other 03-25-2023 11:00-0400 Respiratory rate 12 /min Broderick Ball Other [employer] Other 03-25-2023 11:00-0400 Systolic blood pressure 135 mm[Hg] Broderick Ball Other [employer] Other 01-07-2023 14:15-0500 Body height 161.29 cm Bertram Sanders Other [employer] Other 01-07-2023 14:15-0500 Body mass index (BMI) [Ratio] 32.25 kg/m2 Bertram Sanders Other [employer] Other 01-07-2023 14:15-0500 Body weight 83.92 kg Bertram Shannony Other [employer] Other 01-07-2023 14:15-0500 Diastolic blood pressure 85 mm[Hg] Bertram Sanders Other [employer] Other 01-07-2023 14:15-0500 Systolic blood pressure 155 mm[Hg] Bertram Shannony Other [employer] Other 11-25-2022 11:00-0500 Body height 161.29 cm Broderick Ball Other [employer] Other 11-25-2022 11:00-0500 Body mass index (BMI) [Ratio] 32.25 kg/m2 Broderick Ball Other [employer] Other 11-25-2022 11:00-0500 Body weight 83.92 kg Broderick Ball Other [employer] Other 11-25-2022 11:00-0500 Diastolic blood pressure 78 mm[Hg] Broderick Ball Other [employer] Other 11-25-2022 11:00-0500 Respiratory rate 12 /min Broderick Ball Other [facility] [employer] Other 11-25-2022 11:00-0500 Systolic blood pressure 118 mm[Hg] Broderick Ball Other [facility] [employer] Other 09-10-2022 13:48-0400 Body height 157.5 cm Alejandro Villar MD, PhD Work Phone: [facility] 09-10-2022 13:48-0400 Body weight 88.27 kg Alejandro Villar MD, PhD Work Phone: [facility] 09-10-2022 13:48-0400 Diastolic blood pressure 86 mm[Hg] Alejandro Villar MD, PhD Work Phone: [facility] 09-10-2022 13:48-0400 Heart rate 76 /min Alejandro Villar MD, PhD Work Phone: [facility] 09-10-2022 13:48-0400 Systolic blood pressure 148 mm[Hg] Alejandro Villar MD, PhD Work Phone: [facility] 07-23-2022 10:09-0400 Body height 160 cm Kitty Vidal MD Work Phone: [facility] 07-23-2022 10:09-0400 Body weight 88 kg Kitty Vidal MD Work Phone: [facility] 07-23-2022 10:09-0400 Diastolic blood pressure 66 mm[Hg] Kitty Vidal MD Work Phone: [facility] 07-23-2022 10:09-0400 Heart rate 63 /min Kitty Vidal MD Work Phone: [facility] 07-23-2022 10:09-0400 Systolic blood pressure 136 mm[Hg] Kitty Vidal MD Work Phone: [facility] 01-06-2022 11:30-0500 Body height 161.29 cm Bertram Sanders Other [facility] [employer] Other 01-06-2022 11:30-0500 Body mass index (BMI) [Ratio] 30.68 kg/m2 Bertram Sanders Other [facility] [employer] Other 01-06-2022 11:30-0500 Body weight 79.83 kg Bertram Sanders Other [facility] [employer] Other Encounters Encounter Date Encounter Type Care Provider Facility Start: 06-12-2024 End: 06-12-2024 ambulatory JACK POMPA Not Available Start: 06-08-2024 End: 06-08-2024 ambulatory DO Broderick Howard Work Phone: [facility] Work Phone: Start: 06-08-2024 End: 06-08-2024 Patient encounter procedure DO Broderick Ball Work Phone: [facility] Work Phone: Start: 06-05-2024 Non-patient / Non-visit DO Miguel A Howard Work Phone: [facility] Work Phone: Start: 06-05-2024 End: 06-05-2024 ambulatory Keith Parks MD Facility: [facility] Start: 05-30-2024 End: 05-30-2024 Patient encounter procedure DO Broderick Ball Work Phone: [facility] [place] Work Phone: Start: 05-30-2024 End: 05-30-2024 ambulatory DO Broderick Ball Work Phone: [facility] Work Phone: Start: 05-23-2024 End: 05-23-2024 Patient encounter procedure Randa Reilly MD Work Phone: Neurology Comment on above: Intractable 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 aura and without status migrainosus (Primary Dx) Start: 05-15-2024 Non-patient / Non-visit DO Miguel A Howard Work Phone: [facility] Work Phone: Start: 05-15-2024 End: 05-15-2024 ambulatory Keith Parks MD Facility:[facility] Start: 05-05-2024 Non-patient / Non-visit DO Miguel A Howard Work Phone: [facility] Work Phone: Start: 05-03-2024 End: 05-03-2024 ambulatory DAVID MCFADDEN Not Available Start: 04-21-2024 End: 04-21-2024 ambulatory DO Broderick Ball Work Phone: [facility] Work Phone: Start: 04-21-2024 End: 04-21-2024 Patient encounter procedure DO Broderick Ball Work Phone: [facility] Work Phone: Start: 03-29-2024 End: 03-29-2024 Patient encounter procedure DO Broderick Ball Work Phone: [facility] Work Phone: Start: 03-28-2024 End: 03-28-2024 Patient encounter procedure DO Broderick Ball Work Phone: [facility] [place] Work Phone: Start: 03-28-2024 End: 03-28-2024 ambulatory Broderick Ball Facility:[facility] Start: 03-09-2024 End: 03-09-2024 Patient encounter procedure DO Broderick Ball Work Phone: [facility] Start: 03-09-2024 End: 03-09-2024 ambulatory DO Broderick Ball Work Phone: [facility] Work Phone: Start: 03-08-2024 Follow-up encounter Kitty Vidal MD Work Phone: [facility] Start: 03-08-2024 Patient encounter procedure Kitty Vidal MD Work Phone: [facility] Start: 03-07-2024 End: 03-07-2024 ambulatory RANDA REILLY Facility:[facility] [place] Start: 03-07-2024 End: 03-07-2024 Patient encounter procedure Randa Reilly MD Work Phone: Neurology Comment on above: Intractable 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 aura and without status migrainosus (Primary Dx); Cervicalgia; SHELL (obstructive sleep apnea) Start: 03-03-2024 Non-patient / Non-visit DO Miguel A camargo [employer] Work Phone: [facility] Physician [facility] Work Phone: Start: 02-15-2024 Non-patient / Non-visit DO Miguel A camargo [employer] Work Phone: [facility] Work Phone: Start: 02-10-2024 Non-patient / Non-visit DO Miguel A camargo [employer] Work Phone: [facility] Work Phone: Start: 02-09-2024 End: 02-09-2024 ambulatory [facility] Work Phone: Start: 02-09-2024 End: 02-09-2024 Patient encounter procedure [facility] Work Phone: Start: 12-23-2023 End: 12-23-2023 ambulatory ALEJANDRO VILLAR Facility:[facility] [place] Start: 12-23-2023 End: 12-23-2023 Patient encounter procedure Alejandro Villar MD, PhD Work Phone: Neurology Comment on above: Intractable 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 aura and without status migrainosus (Primary Dx) Start: 11-24-2023 End: 11-24-2023 ambulatory Broderick Howard Other [employer] Other Start: 11-24-2023 Office outpatient vi sit 15 minutes [facility]derick [facility] Start: 11-24-2023 End: 11-24-2023 Patient encounter procedure [facility] Physician [facility] Work Phone: Start: 09-13-2023 Refill Alejandro wright MD, PhD Work Phone: Neurology Comment on above: Refill Request Patient Update Start: 09-08-2023 End: 09-08-2023 ambulatory MIRIAN BELL Facility:[facility] Start: 09-08-2023 Follow-up encounter Kitty Vidal MD Work Phone: [facility] Start: 09-08-2023 End: 09-08-2023 Patient encounter procedure Kitty Vidal MD Work Phone: [facility] Department Comment on above: 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); Cardiac pacemaker in situ; Bradycardia Start: 08-25-2023 End: 08-25-2023 ambulatory Niki Blades Other [employer] Other Start: 08-25-2023 Postop follow up vis it related to original px Niki Blades [facility] Neurosurgery Start: 08-16-2023 End: 08-16-2023 ambulatory Niki Blades Other [employer] Other Start: 08-16-2023 Postop follow up vis it related to original px Niki Blades [facility] Neurosurgery Start: 08-13-2023 End: 08-13-2023 ambulatory Broderick Howard Other [employer] Other Start: 08-13-2023 Telephone encounter Broderick Howard [facility] Start: 08-12-2023 Postop follow up vis it related to original px Niki Blades [facility] Neurosurgery Start: 08-12-2023 End: 08-12-2023 ambulatory Niki A Blades [facility] [employer] Other Start: 08-03-2023 End: 08-05-2023 Admission to same day surgery center DO Broderick Ball Work Phone: [facility] [place] Start: 08-03-2023 End: 08-05-2023 ambulatory DO Broderick Ball Work Phone: [facility] Work Phone: Start: 08-02-2023 End: 08-02-2023 ambulatory Broderick Ball Other [employer] Other Start: 08-02-2023 Telephone encounter [facility]derick [facility] Start: 07-20-2023 End: 07-20-2023 Patient encounter procedure DO Broderick Ball Work Phone: [facility]Pre[facility]Surgical [facility] Work Phone: Start: 07-20-2023 End: 07-20-2023 ambulatory DO Broderick Ball Work Phone: [facility] Work Phone: Start: 07-09-2023 End: 07-09-2023 ambulatory Niki Blades Other [employer] Other Start: 07-09-2023 Telephone encounter Niki Blades [facility] Start: 07-07-2023 End: 07-07-2023 ambulatory Niki Blades Other [employer] Other Start: 07-07-2023 Office outpatient ne w 45 minutes Niki Blades [facility] Neurosurgery Start: 06-08-2023 Follow-up encounter Kitty Vidal MD Work Phone: [facility] Start: 06-08-2023 Pacemaker Remote F/U Kitty Vidal MD Work Phone: [facility] Department Start: 06-04-2023 ambulatory Facility:[id number] Start: 06-04-2023 End: 06-04-2023 Patient encounter procedure DO Broderick Howard Work Phone: [facility] [place] Work Phone: Start: 06-04-2023 End: 06-04-2023 ambulatory DO Broderick Howard Work Phone: [facility] Work Phone: Start: 05-14-2023 ambulatory Facility:[id number] Start: 05-14-2023 End: 05-14-2023 ambulatory DO Broderick Howard Work Phone: [facility] Work Phone: Start: 05-14-2023 End: 05-14-2023 Patient encounter procedure DO Broderick Howard Work Phone: [facility]-Pacemaker Check Start: 05-06-2023 End: 05-06-2023 ambulatory Bertram Sanders Other [employer] Other Start: 05-06-2023 Patient encounter procedure Bertram Sanders [facility] Start: 05-03-2023 End: 05-03-2023 ambulatory Broderick Howard Other [employer] Other Start: 05-03-2023 Office outpatient vi sit 15 minutes Broderick Howard [facility] Start: 05-03-2023 Telephone encounter Broderick SCHWARZ [facility] Start: 03-29-2023 End: 04-14-[address] BRODERICK HOWARD [facility] [employer] Other Start: 03-29-2023 Telephone encounter Broderick SCHWARZ [facility] Start: 03-25-2023 End: 03-25-2023 ambulatory Broderick Howard Other [employer] Other Start: 03-25-2023 Office outpatient vi sit 25 minutes [facility] Start: 03-15-2023 End: 04-14-2023 ambulatory AGUILARMARIN REYESWAD Facility:[facility] Start: 02-24-2023 Follow-up encounter Kitty Vidal MD Work Phone: [facility] Start: 02-24-2023 Pacemaker Remote F/U Kitty Vidal MD Work Phone: [facility] Start: 02-15-2023 End: 03-12-2023 ambulatory AGUILAR H FAWWAD Facility:[facility] Start: 02-03-2023 End: 02-03-2023 ambulatory Bertram Batesdavidtanisha Other [employer] Other Start: 02-03-2023 Telephone encounter Bertram Sanders [facility] Gastroenterology Start: 01-13-2023 End: 02-12-2023 ambulatory AGUILAR H FAWWAD Facility:[facility] Start: 01-07-2023 End: 01-07-2023 ambulatory Bertram Batesdavidtanisha Other [employer] Other Start: 01-07-2023 Patient encounter procedure Bertram Sanders [facility] Start: 12-16-2022 End: 01-13-2023 ambulatory AGUILARMARIN BAEZAWWAD Facility:[facility] Start: 11-25-2022 End: 11-25-2022 ambulatory Broderick Howard Other [employer] Other Start: 11-25-2022 Follow-up encounter Kitty Vidal MD Work Phone: [facility] Start: 11-25-2022 Office outpatient vi sit 25 minutes [facility] Start: 11-25-2022 Pacemaker Remote F/U Kitty Vidal MD Work Phone: [facility] Start: 11-23-2022 Patient encounter procedure Broderick Howard Other [employer] Other Start: 11-16-2022 End: 12-16-2022 ambulatory SHAIKH Guy SOWD Facility:[facility] Start: 10-15-2022 Adult health examination Niki Blades Other [employer] Other Start: 10-15-2022 Gynecological examination normal Niki Blades Other [employer] Other Start: 10-15-2022 End: 11-15-2022 ambulatory SHAIKH Guy REYESWAD Facility:[facility] Start: 09-15-2022 End: 10-14-2022 ambulatory SHAIKH Guy REYESMAYELIND Facility:[facility] Start: 09-10-2022 End: 09-10-2022 Patient encounter procedure Alejandro Villar MD, PhD Work Phone: Neurology Comment on above: 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, intractable (HCC) Start: 08-26-2022 Follow-up encounter Kitty Vidal MD Work Phone: [facility] Start: 08-26-2022 Pacemaker Remote F/U Kitty Vidal MD Work Phone: [facility] Start: 08-16-2022 End: 09-14-2022 ambulatory SHAIKH [...] hugo Dx) Start: 07-16-2022 End: 08-15-2022 ambulatory AGUILAR Guy GERARDO Facility:[facility] Start: 06-15-2022 End: 07-15-2022 ambulatory AGUILAR H GERARDO Facility:[facility] Start: 06-08-2022 End: 06-08-[address] BRODERICK HOWARD Facility:[facility] Start: 05-15-2022 End: 06-12-[address] BRODERICK HOWARD Facility:[facility] Start: 01-06-2022 End: 01-06-2022 ambulatory Bertram Sanders Other [employer] Other Start: 01-06-2022 Patient encounter procedure Bertram Sanders [facility] Gastroenterology Start: 10-14-2020 End: 10-14-2020 Pre-procedure evaluation check Niki Blades Other [employer] Other Procedures Date Procedure Procedure Detail Performing Clinician Start: 05-30-2024 MR lumbar spine wo con DO Broderick Ball Work Phone: Start: 03-28-2024 MRI of lumbar spine with contrast DO Broderick Ball Work Phone: Start: 03-08-2024 PACEMAKER REMOTE CHECK Kitty Vidal MD Work Phone: Start: 09-08-2023 PACEMAKER CLINIC CHECK Kitty Vidal MD Work Phone: Start: 08-03-2023 Antibody screen Niki Weeks Comment on above: Result Comment: PERF ORMED BY: [address] [place] [address] PATHOLOGIST [employer] LELE FALK M.D. Start: 08-03-2023 Excision of [...] Author Start: 11-28-2024 DIABETES SCREEN DIABETES SCREEN [facility] Start: 11-28-2024 Diabetes Screening Diabetes Screenin g [facility] Start: 09-05-2024 End: 09-05-2024 Patient encounter procedure 09/05/2024 1:30 PM EDT Office Visit Neurology [id number] [place] [address] [place] [id number] [place] [address] Botox Neurology Comment on above: Botox Start: 08-31-2024 End: 08-31-2024 Patient encounter procedure 08/31/2024 10:00 AM EDT Office Visit Cardiology [id number] [facility] [place] [address] [place] [address] [place] [address] return in about 1 year (around 09/08/2024) Cardiology Comment on above: return in about 1 ye ar (around 09/08/2024) Start: 07-16-2024 Influenza vaccination Influenza Vacc ine (#1) [facility] Start: 06-29-2024 End: 06-29-2024 Patient encounter procedure 06/29/2024 1:00 PM EDT Office Visit Neurology [address] [place] [address] Alejadnro Villar MD, PhD [address] [place] [address] Follow Up-rescheduled from 06/22 Neurology Comment on above: Follow Up-reschedule d from 06/22 Start: 04-21-2024 Patient referral [facility] Work Phone: Start: 11-15-2023 Advance Directive Discussion Advance Directive Discussion [facility] Start: 08-05-2023 [facility] Start: 08-03-2023 Hospital admission [facility] Start: 08-03-2023 [facility] Start: 07-16-2023 Covid-19 Vaccine ( season) Covid-19 Vaccine () [facility] Start: 07-16-2023 Influenza vaccination [facility] Start: 11-15-2022 ADVANCE DIRECTIVE DISCUSSION ADVANCE DIRECTIVE DISCUSSION [facility] Start: 09-10-2022 End: 11-10-2022 levETIRAcetam [Mass/volume] in Serum or Plasma [facility] Work Phone: Comment on above: Expected: 09/10/2022 , Expires: 11/10/2022 Start: 09-10-2022 End: 11-10-2022 Zonisamide [Mass/volume] in Serum or Plasma [facility] Work Phone: Comment on above: Expected: 09/10/2022 , Expires: 11/10/2022 Start: 07-16-2022 Influenza vaccination INFLUENZA (#1) [facility] Start: 04-30-2022 Screening for malign ant neoplasm of colon [facility] Start: 11-15-2021 ADVANCE DIRECTIVE DISCUSSION ADVANCE DIRECTIVE DISCUSSION [facility] Start: 02-04-2019 Pneumococcal Vaccine : 65+ (2 - PCV) Pneumococcal Vaccine: 65+ (2 - PCV) [facility] Start: 02-04-2019 Pneumococcal Vaccine : 65+ (2 of 2 - PCV) Pneumococcal Vaccine: 65+ (2 of 2 - PCV) [facility] Start: 2015 BONE DENSITY BONE DENSITY [facility] Start: 2015 Bone Density Screening Bone Density Screening [facility] Start: 2015 PNEUMOCOCCAL: 65+ (1 - PCV) PNEUMOCOCCAL: 65+ (1 - PCV) [facility] Start: 2015 Screening for osteoporosis Bone Density Screening [facility] Start: 2010 RSV Vaccine (1 - 1-d ose 60+ series) RSV Vaccine (1 - 1-dose 60+ series) [facility] Start: 2000 SHINGRIX VACCINE (1 of 2) SHINGRIX VACCINE (1 of 2) [facility] Start: 1995 COLOGUARD (FIT-DNA) COLOGUARD (FIT-D NA) [facility] Start: 1995 Colonoscopy COLONOSCOPY [facility] Start: 1995 COLORECTAL CANCER SCREENING COLORECTAL CANCER SCREENING [facility] Start: [address] COLONOGRAPHY [facility] Start: 1995 FECAL OCCULT BLOOD FECAL OCCULT BLOO D [facility] Start: 1995 Lipid 1996 panel - S akila or Plasma Lipid Screening [facility] Start: 1995 Lipid panel Lipid Screening [facility] Start: 1995 LIPID SCREEN LIPID SCREEN [facility] Start: 1995 Screening for malign ant neoplasm of colon [facility] Start: 1995 SIGMOIDOSCOPY SIGMOIDOSCOPY [facility] Start: 1990 Mammography [facility] Start: 1990 Screening for malign ant neoplasm of breast Mammogram Screening [facility] Start: 1969 Urine microalbumin profile [facility] Start: 1968 ANNUAL PCP TEAM DIRECTOR OF LITIGATION YESENIA DISEASE VISIT ANNUAL PCP TEAM CHRONIC DISEASE VISIT [facility] Start: 1968 BP CONTROLLED (<130/80) BP CONTROLLE D (<130/80) [facility] Start: 1968 HEPATITIS C SCREENING HEPATITIS C [facility] Start: 1968 Hepatitis C screening Hepatitis C [facility] Start: 1950 COVID-19 VACCINE (#1) COVID-19 VACCI NE (#1) [facility] End: 07-23-2023 ECG COMPLETE ECG COMPLETE ECG Routine Chronic fatigue 1 Occurrences starting 07/23/2022 until 07/23/2023 [facility] Work Phone: Comment on above: 1 Occurrences starti ng 07/23/2022 until 07/23/2023 ECG COMPLETE ECG COMPLETE ECG Routine Sinus node dysfunction (HCC) Cardiac pacemaker in situ Bradycardia Ordered: 09/08/2023 [facility] Work Phone: Comment on above: Ordered: 09/08/2023 Patient Education [facility] Work Phone: Patient referral [facility] Work Phone: Renal function 2000 panel - Serum or Plasma [facility] [place] Immunizations Immunization Date Immunization Notes Care Provider Fa [facility] 08-31-2023 influenza virus vaccine, unspecified formulation Randa Reilly MD Work Phone: [facility] 07-30-2022 influenza virus vaccine, split virus (incl. purified surface antigen) [employer] Other [employer] [facility] [employer] Other 07-30-2022 influenza virus vaccine, unspecified formulation [facility] 09-10-2021 COVID-19 mRNA-1273 (Moderna) DO [employer] Work Phone: [facility] 07-30-2021 influenza virus vaccine, split virus (incl. purified surface antigen) Niki Blades Other [employer] [facility] [employer] Other 07-30-2021 influenza virus vaccine, unspecified formulation [facility] 01-14-2021 COVID-19 mRNA-1273 (Moderna) DO [employer] Work Phone: [facility] 12-17-2020 COVID-19 mRNA-1273 (Moderna) DO [employer] Work Phone: [facility] 09-03-2020 influenza virus vaccine, split virus (incl. purified surface antigen) Niki Blades Other [employer] Other 09-03-2020 influenza virus vaccine, unspecified formulation [facility] 08-23-2019 influenza virus vaccine, split virus (incl. purified surface antigen) Niki Blades Other [employer] Other 08-23-2019 influenza virus vaccine, unspecified formulation [facility] 09-07-2018 influenza virus vaccine, split virus (incl. purified surface antigen) Niki Blades Other [employer] Other 09-07-2018 influenza virus vaccine, unspecified formulation [facility] 02-04-2018 pneumococcal polysaccharide vaccine, 23 valent Niki Blades Other [facility] Payers Date Payer Category Payer Self-pay [id number] 2021 Unknown [id number] 2015 Private Health Insurance [employer] MEDICARE SUPPLEMENT [id number] 2015-Present [phone] [address] [place] [id number] Indemnity [id number] 2013 Medicare [id number] 2008 Unknown [employer] BC/BS [id number] 1959 Medicare [id number] 1959 Medicare [id number] 2.16.840.1.377754.19 1950 Unknown [id number] 2.16.840.1.161004.3.579.2 .593 1950 Unknown [id number] 2.16.840.1.733698.3.579.2 .593 1950 Unknown [id number] 2.16.840.1.417000.3.579.2 .593 1950 Unknown [id number] 2.16.840.1.387343.3.579.2 .593 1950 Unknown [id number] 2.16.840.1.258477.3.579.2 .593 1950 Unknown [id number] 2.16.840.1.667822.3.579.2 .593 1950 Unknown [id number] 2.16.840.1.766031.3.579.2 .593 1950 Unknown [id number] 2.16.840.1.169743.3.579.2 .593 1950 Unknown [id number] 2.16.840.1.295116.3.579.2 .593 1950 Unknown [id number] 2.16.840.1.980295.3.579.2 .593 1950 Unknown [id number] 2.16.840.1.250747.3.579.2 .593 1950 Unknown [id number] 2.16.840.1.277994.3.579.2 .593 1950 Unknown [id number] 2.16.840.1.370573.3.579.2 .593 1950 Unknown [id number] 2.16.840.1.033775.3.579.2 .593 1950 Unknown [id number] 2.16.840.1.173028.3.579.2 .593 1950 Unknown [id number] 2.16.840.1.666405.3.579.2 .593 1950 Unknown [id number] 2.16.840.1.455293.3.579.2 .593 1950 Unknown [id number] 2.16.840.1.726275.3.579.2 .356 1950 Unknown [id number] 2.16.840.1.414068.3.579.2 .356 1950 Unknown [id number] 2.16.840.1.813423.3.579.2 .196 1950 Unknown [id number] 2.16.840.1.688517.3.579.2 .196 1950 Unknown [id number] 2.16.840.1.942766.3.579.2 .1259 1950 Unknown [id number] 2.16.840.1.797627.3.579.2 .1259 1950 Unknown [id number] 2.16.840.1.689488.3.579.2 .1259 1950 Unknown [id number] 2.16.840.1.501082.3.579.2 .1259 Unknown [id number] 2.16.840.1.891640.3.579.2 .531 Unknown [id number] 2.16.840.1.383493.3.579.2 .531 Unknown [id number] 2.16840.1.544473.3.579.2 .531 Unknown [id number] 2.16840.1.555671.3.579.2 .531 Social History Date Type Detail Facility Start: 09-10-2022 End: 09-08-2023 Sex Assigned At [facility] Start: 02-19-2011 End: 06-08-2024 Tobacco smoking status NHIS Never smoked tobacco [facility] Start: 02-19-2011 End: 09-10-2022 Tobacco use and exposure Smokeless tobacco non-user [facility] Start: 11-28-2021 End: 07-09-2024 Alcohol intake Current non-drinker of alcohol (finding) [facility] Start: 1950 Sex Assigned At Not on file [facility] Start: 07-13-2022 End: 09-10-2022 Exposure to SARS-CoV-2 (event) Not sure [facility] Start: 1950 Sex Assigned At Female F [facility] Start: 09-10-2022 End: 09-08-2023 History of Social function [facility] Adult Depression Screening Assessment 2 [facility] Medical Equipment Procedure Code Equipment Code Equipment Origin al Text Equipment Identifier Dates Plate Bn 12mm Cm f Ti 2 H Lp - [id number] Start: 08-16-2015 Pin Crss Sd Scr 1.5x4mm - [id number] Start: 08-16-2015 Pacemaker-[id number] [employer] [id number] Start: 05-22-2015 Goals Date Patient Goal Desired Activity /State Personal health goal Functional Status Date Assessment Result Facility 08-05-2023 Functional status Patient at Baseline [facility] Work Phone: Mental Status Date Assessment Result Facility 08-05-2023 Cognitive function Cognitive Sta tus Patient at Baseline [facility] Work Phone: Clinical Notes 01-24-2015 to 05-23-2024 Tomasa Farfan RN - 05/23/2024 11:54 AM Tomasa Everett RN - 05/23/2024 11:54 AM Randa Allen MD - 05/23/2024 11:12 AM Randa Allen MD - 05/23/2024 11:12 AM EDT Note Date & Type Note Facility 05-23-2024 Nurse Note Patient name and confirmed. Patient states she would like to receive Botox treatment today. 2 vials of Botox A (100 units in each) reconstituted with 2.2 cc of normal saline in each vial. Botox drawn up into four, 1 cc syringes. Each syringe containing 50 units of Botox. Assisted by: Diann VARELA Botox, 2 vials: Lot # [id number] # [id number] Botox handed to Dr. Reilly to administer and verified order. [facility] 05-23-2024 Nurse Note Patient name and confirmed. Patient states she would like to receive Botox treatment today. 2 vials of Botox A (100 units in each) reconstituted with 2.2 cc of normal saline in each vial. Botox drawn up into four, 1 cc syringes. Each syringe containing 50 units of Botox. Assisted by: Diann VARELA Botox, 2 vials: Lot # [id number] # [id number] Botox handed to Dr. Reilly to administer and verified order. documented in this encounter [facility] 05-23-2024 Procedure note BOTOX PROCEDURE NOTE Responsible practitioner performing the procedure(s)/treatment(s): Randa Reilly Practitioner obtaining the consent: Randa Reilly Procedure(s)/treatment(s): Botox therapy for migraine Consent Source: Patient Consent DEPARTMENT of NEUROLOGY UNIVERSAL PROTOCOL / SAFETY CHECKLIST Procedure to be performed: Randa Reilly MD Sign in Communication: Completed Time Out: Team Confirms the Correct Patient, Correct Procedure, Correct Site and Site Marking, Correct Position (if applicable), Prep and Dry Time (if applicable). Time: Before procedure Affirmation of Time Out: YES Sign Out Discussion: Completed Randa Reilly MD Botox procedure note Treatment # 1 Consent in EPIC Dilution: 5 units/0.1 ml ( 100 unit vial with 2 cc diluent or 200 unit vial with 4 cc diluent) Diluent: normal saline Indication: Chronic Intractable Migraine Right temporal metal plate with skin irregularity, no shunt Injection Sites Muscle Fixed Site/Fixed Dose Bilat Wellness Coach 20 U divided in 2 sites Procerus 10 U in 1 site Bilat Frontalis 20 U divided in 4 sites Bilat Temporalis 50 U divided in 8 sites Bilat Occipitalis 40 U divided in 6 sites Bilat Cervical PSPs 20 U divided in 4 sites Bilat Trapezius 40 U divided in 6 sites Subtotals 200 units Total Units used: 200 Total Units wasted: 0 Randa Reilly MD [facility] 05-23-2024 Procedure note BOTOX PROCEDURE NOTE Responsible practitioner performing the procedure(s)/treatment(s): Randa Reilly Practitioner obtaining the consent: Randa Reilly Procedure(s)/treatment(s): Botox therapy for migraine Consent Source: Patient Consent DEPARTMENT of NEUROLOGY UNIVERSAL PROTOCOL / SAFETY CHECKLIST Procedure to be performed: Randa Reilly MD Sign in Communication: Completed Time Out: Team Confirms the Correct Patient, Correct Procedure, Correct Site and Site Marking, Correct Position (if applicable), Prep and Dry Time (if applicable). Time: Before procedure Affirmation of Time Out: YES Sign Out Discussion: Completed Randa Reilly MD Botox procedure note Treatment # 1 Consent in EPIC Dilution: 5 units/0.1 ml ( 100 unit vial with 2 cc diluent or 200 unit vial with 4 cc diluent) Diluent: normal saline Indication: Chronic Intractable Migraine Right temporal metal plate with skin irregularity, no shunt Injection Sites Muscle Fixed Site/Fixed Dose Bilat Wellness Coach 20 U divided in 2 sites Procerus 10 U in 1 site Bilat Frontalis 20 U divided in 4 sites Bilat Temporalis 50 U divided in 8 sites Bilat Occipitalis 40 U divided in 6 sites Bilat Cervical PSPs 20 U divided in 4 sites Bilat Trapezius 40 U divided in 6 sites Subtotals 200 units Total Units used: 200 Total Units wasted: 0 Randa Reilly MD [facility] documented in this encounter [facility] 03-15-2024 Note DUAL CHAMBER [facility] ER REMOTE [...] Documents section. [facility] 03-07-2024 Note HNO ID: [id number] Author: RANDA REILLY MD Service: ? Author Type: Physician Type: Progress Notes Filed: 03/07/2024 13:16 Note Text: PROGRESS NOTE- HEADACHE MEDICINE SERVICE DATE: March 07, 2024 Location: [facility] Participants: patient, and provider HPI: Here [...] I spent at least 50% of the koof-mh-ydvp time in counseling, explanation of diagnosis, planning of further management, and answering all questions. Randa Reilly MD [facility] 03-07-2024 History of Presen t illness Narrative PROGRESS NOTE- HEADACHE MEDICINE SERVICE DATE: March 07, 2024 Location: [facility] Participants: patient, and provider HPI: Here [...] I spent at least 50% of the sdsr-tx-clxs time in counseling, explanation of diagnosis, planning of further management, and answering all questions. Randa Reilly MD [facility] [place] [facility] [place] documented in this encounter [facility] [place] [facility] 12-23-2023 Note HNO ID: [id number] Author: ALEJANDRO VILLAR MD, PhD Service: ? Author Type: Physician Type: Progress Notes Filed: 12/23/2023 13:37 Note Text: [facility] CHIEF COMPLAINT: Patient presents [...] was referred to the headache clinic at [facility] in the past but at this time [...] There is no focal weakness. 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 Intermittent Slow, Regional Right temporal Ictal (more content not included)... [facility] 12-23-2023 Instructions Lauren Otero APRN.CNP - 12/23/2023 9:42 AM EST To schedule with headache clinic (can schedule at [facility]): [phone] documented in this encounter [facility] [place] 12-23-2023 History of Presen t illness Narrative [facility] CHIEF COMPLAINT: Patient presents [...] was referred to the headache clinic at [facility] in the past but at this time [...] There is no focal weakness. PREVIOUS EVALUATIONS: [facility], 05/2015: Right Temporal Epilepsy Seizures: Aura [...] patient management conference were Chito Matias Gupta, Kalyan, and myself (Dr. Larkin). The group agreed [...] know if she decides to pursue at [facility] - she needs for spine doctor, plans to talk to PCP first but will let us know if she needs referral to someone here at [facility] - ENT referral as needed for change [...] MD, PhD in collaboration with Lauren Otero APRN.CNP December 23, 2023 documented in this encounter [facility] [place] [facility] 11-24-2023 Evaluation note Encounter Date Diagnosis Assessment Notes Nov, Acute non-recurrent maxillary sinusitis (ICD-10 - J01.00) Instructed to use Robitussin or Mucinex for cough, saline or Flonase NS for congestion, Tylenol for pain and fever. Nov, Primary hypertension (ICD-10 - I10) Increased risk for more serious, prolonged illness. [employer] Other [id number] Miscellaneous Notes* Telephone Encounter - Mirian Bell APRN.CNP - 09/13/2023 1:53 PM EDT Thank you reviewed scan documents. Mirian Bell APRN.NIC * Telephone Encounter - Brenda Hodges RN - 09/13/2023 7:58 AM EDT Received medical records from [facility] and scanned into chart for review. [facility] [place] [facility]-2023 Miscellaneous Notes* Telephone Encounter - Daniel Macias [...] Please E-Scribe Caller Contact Number: Pharmacy Name: [facility] Pharmacy Number: [phone] Generic/ brand: 30 or 90 day supply requested: 90 Last appointment: 09/10/22 Next Appointment: 12/09/[address] Villar documented [facility] [place] [facility]10-25-2023 NoteHNO ID: [id number] Author: Mirian Bell APRN.CNP Service: ? Author Type: Nurse Practitioner Type: Progress Notes Filed: 09/08/2023 3:29 PM Note Text: [facility] [place] [facility] Department of Cardiovascular Medicine SECTION OF CARDIAC PACING and ELECTROPHYSIOLOGY OUTPATIENT VISIT DATE September 08, 2023 OUTPATIENT VISIT TYPE ESTABLISHED PRIMARY CARE PHYSICIAN: Broderick Howard (Zack) [address] [place] [address] CHIEF COMPLAINT: follow up device management HISTORY [...] right leg DVT (2012), seizure, SHELL, IBS, fpc anticoagulation. Moderate functional capacity (active with ADL, [...] in INCHES 64 in. (more content not included)...[facility] 09-08-2023 Instructions* Patient Instructions* Mirian Bell APRN.CNP - 09/08/2023 3:21 PM EDT Please schedule for device check & in one year Please have patient sign release of medical labs [facility] had labs last month documented in [facility] [place] [facility]10-25-2023 History of Present illness Narrative* Mirian Bell APRN.CNP - 09/08/2023 2:30 PM EDT Images from the original note were not included. [facility] [place] [facility] Department of Cardiovascular Medicine SECTION OF CARDIAC PACING and ELECTROPHYSIOLOGY OUTPATIENT VISIT DATE September 08, 2023 OUTPATIENT VISIT TYPE ESTABLISHED PRIMARY CARE PHYSICIAN: Broderick Howard (Zack) [address] [place] [address] CHIEF COMPLAINT: follow up device management HISTORY [...] right leg DVT (2012), seizure, SHELL, IBS, fpc anticoagulation. Moderate functional capacity (active with ADL, [...] 09-08-2023 Dual chambered pacer EVALUATION PRESENTS FOR: BRIAR CUTTER visit PRESENTING EGM: AP/VS UNDERLYING RHYTHM: BATTERY [...] 4. Annual labs, I will obtain from [facility] she had last month Follow up appointment: Dr. Garner & device check in one year I spent 25 to 30 minutes in the visit, with more than 50% of the total ezcw-al-qduf time of the visit in counseling / coordination of care. CONTACT INFORMATION: Mirian Bell APRN.CNP, 09/08/23 [facility] Cardiology Second Floor [address] [facility] [place] [address] documented in this encounterC[facility] [place] [facility]10-11-2023 Evaluation note* Encounter Date Diagnosis Assessment Notes Treatment Notes Treatment Clinical Notes Aug, Lumbar stenosis with neurogenic claudication (ICD-10 - M48.062) [employer] Other 10-02-2023 Evaluation note* Encounter Date Diagnosis Assessment Notes Treatment Notes Treatment Clinical Notes Aug, Lumbar stenosis with neurogenic claudication (ICD-10 - M48.062) [employer] Other 09-28-2023 Evaluation note* Encounter Date Diagnosis Assessment Notes Treatment Notes Treatment Clinical Notes Jul, Lumbar stenosis with neurogenic claudication (ICD-10 - M48.062) [employer] Other 09-20-2023 Progress note Author Niki Weeks [facility] August 04, 2023 7:57am Note Date/Time August 04, 2023 7:57am [facility] [address] [place] [address] Neurosurgery Progress Note Signed Patient: Cassi Rodrigez MR#: [id number] : 1950 Acct:[id number] Age/Sex: 73 / F Adm Date: 3 Loc: 4N Room: 3L5759-6 Type: REG SDC Attending Dr: Niki Weeks [...] % (Auto) 91.6, Lymph % (Auto) 4.4, [place] % (Auto) 4.0, Eos % (Auto) 0.0, Baso % (Auto) 0.0, Nucleat RBC Rel Count 0.1, Neut # (Auto) 10.4 H, Lymph #(Auto) 0.5 L, [place] # (Auto) 0.5, Eos # (Auto) 0.0, [...] signed by Niki Weeks MD> 08/04/23 0757 [facility] Work Phone: [phone]) 552-192808-23-2023 Evaluation note* Encounter Date Diagnosis Assessment Notes Treatment Notes Treatment Clinical Notes Jun, Lumbar stenosis with neurogenic claudication (ICD-10 - M48.062) [employer] Other 06-22-2023 Evaluation note* Encounter Date Diagnosis [...] will continue with this therapy without change. [employer] Other 06-19-2023 Evaluation note* Encounter Date Diagnosis Assessment Notes Treatment Notes Treatment Clinical Notes Apr, Lumbosacral spondylosis with radiculopathy (ICD-10 - M47.27) [employer] Other 06-19-2023 Evaluation note* Encounter Date Diagnosis [...] until MRI completed MRI being rescheduled [facility] due to PM [...] History of lumbar fusion (ICD-10 - Z98.1) [employer] Other 05-15-2023 Evaluation note* Encounter Date Diagnosis Assessment Notes Treatment Notes Treatment Clinical Notes March, Lumbosacral spondylosis with radiculopathy (ICD-10 - M47.27) [employer] Other 05-11-2023 Evaluation note* Encounter Date Diagnosis [...] use, the patient reduces the risk for AR, CVA, HTN, cardiac dysrhythmias and sudden cardiac [...] Other Stable w/o breakthrough Sz. 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 surgery Continue surveillance w/ [employer] Other 2023 Evaluation note* Encounter Date Diagnosis Assessment Notes Treatment Notes Treatment Clinical Notes Jan, Nausea (ICD-10 - R11.0) [employer] Other 02-23-2023 Evaluation note* Encounter Date Diagnosis Assessment Notes Treatment Notes Treatment Clinical Notes Dec, Nausea (ICD-10 - R11.0) Increase Amitriptyline to 15mg at bedtime Dec, Constipation (ICD-10 - K59.00) Start Linzess 72mcg daily Pt to call if symptoms worsen or return Follow up in 4 months [employer] Other 01-11-2023 Evaluation note* Encounter Date Diagnosis [...] use, the patient reduces the risk for AR, CVA, HTN, cardiac dysrhythmias and sudden cardiac [...] to trial Amitiza and discuss w/ GI [employer] Other 10-27-2022 History of Present illness Narrative* Lauren Otero APRN.NIC - 09/10/2022 1:53 PM EDT [facility] CHIEF COMPLAINT: Patient presents [...] She was referred to the headacheclinic at [facility] in the past but at this time [...] There is no focal weakness. PREVIOUS EVALUATIONS: [facility], 05/2015: Right Temporal Epilepsy Seizures: Aura [...] by Dr. Alejandro Villar. documented in this encounterC[facility] [place] [facility]09-08-2022 History of Present illness Narrative* Kitty Vidal MD - 07/23/2022 10:00 AM EDT Images from the original note were not included. [facility] [place] [facility] Department of Cardiovascular Medicine SECTION OF CARDIAC PACING and ELECTROPHYSIOLOGY OUTPATIENT VISIT DATE July 23, 2022 OUTPATIENT VISIT TYPE ESTABLISHED PRIMARY CARE PHYSICIAN: Broderick Howard MD ([facility]) [address] [id number] CHIEF COMPLAINT: Pacemaker management HISTORY OF PRESENT [...] Lymph 1.00 - 4.00 k/uL 0.93 (L) Wythe% % 7.7 Abs Wythe <0.87 k/uL 0.32 Eosin% % 5.3 Abs [...] Kitty Vidal MD Electrophysiology documented in this encounterC[facility] [place] [facility]02-22-2022 Evaluation note* Encounter Date Diagnosis Assessment Notes Treatment Notes Treatment Clinical Notes Dec, Nausea (ICD-10 - R11.0) PATIENT STATES THAT THIS HAS IMPROVED. PATIENT TO CONTINUE ON THE AMITRIPTYLINE DOSE AT THIS TIME. [employer] Other 03-12-2015 History of Past illness Narrative* Problem Noted Date Resolved Date Seizure 01/24/2015 06/21/2018 documented as of this encounter (statuses as of 07/23/2022) [address]12-2015 History of Past illness Narrative* Problem Noted Date Resolved Date Seizure 01/24/2015 06/21/2018 documented as of this encounter (statuses as of 08/26/2022) [address]12-2015 History of Past illness Narrative* Problem Noted Date Resolved Date Seizure 01/24/2015 06/21/2018 documented as of this encounter (statuses as of 09/10/2022) [address]12[address]2015 History of Past illness Narrative* Problem Noted Date Resolved Date Seizure 01/24/2015 06/21/2018 documented as of this encounter (statuses as of 11/26/2022) [address]12[address]2015 History of Past illness Narrative* Problem Noted Date Resolved Date Seizure 01/24/2015 06/21/2018 documented as of this encounter (statuses as of 02/25/2023) [address]2015 History of Past illness Narrative* Problem Noted Date Diagnosed Date Resolved Date Seizure 01/24/2015 06/21/2018 documented as of this encounter (statuses as of 06/17/2023) [address]2015 History of Past illness Narrative* Problem Noted Date Diagnosed Date Resolved Date Seizure 01/24/2015 06/21/2018 documented as of this encounter (statuses as of 09/08/2023) [address]12[address]2015 History of Past illness Narrative* Problem Noted Date Diagnosed Date Resolved Date Seizure 01/24/2015 06/21/2018 documented as of this encounter (statuses as of 09/09/2023) [address]2015 History of Past illness Narrative* Problem Noted Date Diagnosed Date Resolved Date Seizure 01/24/2015 06/21/2018 documented as of this encounter (statuses as of 09/14/2023) [address]2015 History of Past illness Narrative* Problem Noted Date Diagnosed Date Resolved Date Seizure 01/24/2015 06/21/2018 documented as of this encounter (statuses as of 09/14/2023) [address]2015 History of Past illness Narrative* Problem Noted Date Diagnosed Date Resolved Date Seizure 01/24/2015 06/21/2018 documented as of this encounter (statuses as of 12/23/2023) [facility] [place] [facility] Author Niki Weeks [facility] August 05, 2023 8:09am Note Date/Time August 05, 2023 8:09am [facility] [address] [place] [address] Discharge Summary Signed Patient: Cassi Rodrigez MR#: [id number] : 1950 Acct:[id number] Age/Sex: 73 / F Adm Date: 3 Loc: 4N Room: 5V6492-[address]: Niki Weeks MD Copies to: [...] % (Auto) 77.1, Lymph % (Auto) 11.8, [place] % (Auto) 9.2, Eos % (Auto) 1.7, Baso % (Auto) 0.2, Nucleat RBC Rel Count 0.4, Neut # (Auto) 5.6, Lymph # (Auto) 0.9 L, [place] # (Auto) 0.7, Eos # (Auto) 0.1, Baso # (Auto) 0.0 Exam Physical Exam Vital Signs: Temp Pulse Resp BP Pulse Ox O2 Del Method O2 Flow Rate 97.8 F 63 14 117/73 97 Room Air 3 08/05/23 07:21 08/05/23 07:21 08/05/23 07:21 08/05/23 07:21 08/05/23 07:21 08/05/23 07:21 09/20/23 00:00 Narrative: Mrs. Rodrigez was resting comfortably [...] signed by Niki Weeks MD> 08/05/23 0809 [facility] Work Phone: Evaluation note* Diagnosis Chronic fatigue- Primary Other malaise and fatigue [facility] this encounter [facility] [place] [facility]* Diagnosis Partial epilepsy with impairment of consciousness, intractable (HCC) Localization-related (focal) (partial) epilepsy and epileptic syndromes with complex partial seizures, with intractable epilepsy documented in this encounter [facility] [place] [facility] noteNo assessment information [facility] Work Phone: Evaluation noteNo InformationNouniversity hospital [employer] Other evaluation note* Diagnosis Onset Date Resolution Status Lumbar stenosis with neurogenic claudication acute [facility] Work Phone: Evaluation note* Diagnosis Sinus node dysfunction (HCC)- Primary Sinoatrial node dysfunction Cardiac pacemaker in situ Bradycardia Other specified cardiac dysrhythmias documented in this encounter [facility] [place] [facility]* Diagnosis Partial epilepsy with impairment of consciousness, intractable (HCC) Localization-related (focal) (partial) epilepsy and epileptic syndromes with complex partial seizures, with intractable epilepsy [facility] encounter [facility] [place] [facility]* Diagnosis Pacemaker [Z95.0]- Primary Cardiac pacemaker in situ documented in this encounter [facility] [place] [facility]* Diagnosis Intractable 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 aura and without status migrainosus- Primary Chronic migraine without aura, with intractable migraine, so stated, without mention of status migrainosus [facility] encounter [facility] [place] [facility]* Diagnosis Intractable 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 aura and without status migrainosus- Primary Chronic migraine without aura, with intractable migraine, so stated, without mention of status migrainosus Cervicalgia SHELL (obstructive sleep apnea) Obstructive sleep apnea (adult) (pediatric) documented in this encounter [facility] [place] [facility]* Diagnosis Onset Date Resolution Status Hypertension acute Lumbar stenosis with neurogenic claudication acute [facility] Work Phone: Evaluation note* Diagnosis Onset Date Resolution Status Hypertension acute Lumbar stenosis with neurogenic claudication acute Age-related osteoporosis wit hout current pathological fracture acute Chronic kidney disease acute Hypertension acute Lumbosacral spondylosis with radiculopathy acute Obstructive sleep apnea acut e [facility] Work Phone: Evaluation note* Diagnosis Intractable 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 aura and without status migrainosus- Primary Chronic migraine without aura, with intractable migraine, so stated, without mention of status migrainosus documented [facility] this encounter [facility] [place] [facility]* Diagnosis Onset Date Resolution Status Age-related osteoporosis wit hout current pathological fracture acute Chronic kidney disease acute Hypertension acute Lumbosacral spondylosis with radiculopathy acute Obstructive sleep apnea acut e Arthropathy of right hip acu te Greater trochanteric bursitis of both hips acute History of lumbar surgery ac robert Pain of both sacroiliac joints acute [facility] Work Phone: Evaluation note* Diagnosis Onset Date Resolution Status Age-related osteoporosis wit hout current pathological fracture acute Chronic kidney disease acute Hypertension acute Lumbosacral spondylosis with radiculopathy acute Obstructive sleep apnea acut e Arthropathy of right hip acu te Greater trochanteric bursitis of both hips acute History of lumbar surgery ac robert Pain of both sacroiliac joints acute Anemia of renal disease acut e Chronic kidney disease acute [id number] acute Leukopenia acute Pancreatic cancer acute Secondary hyperparathyroidism acute Vitamin D deficiency acute [facility] Work Phone: History general Narrative - Reported* Type Description Date Surgical History back surgery-2 Surgical History cervical fusion Surgical History cholecystectomy Surgical History whipple procedure 2011 Surgical History appendectomy Surgical History hammer toe Surgical History rotator cuff-left Surgical History temporal lumpectomy Hospitalization History see surgical hx [employer] Other Hisvxpv general Narrative - Reported* Type Description Date [...] Essential hypertension Medical History Current use of 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 anticoa gulation Medical History History of pancreatic [...] temporal lumpectomy Hospitalization History see surgical hx [employer] Other Hismrab general Narrative - Reported* Type Description Date [...] Essential hypertension Medical History Current use of fpc anticoa gulation Medical History History of pancreatic [...] Port removal Hospitalization History see surgical hx [employer] Other History general Narrative - Reported* Type [...] apnea Medical History Encounter for [facility] w yuli exam with routine gynecological exam [...] Essential hypertension Medical History 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 use of 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 anticoa 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 Medical History History of pancreatic [...] L4-5 07/2023 Hospitalization History see surgical hx [employer] Other Hospital Discharge instructions Additional Instructions Eat a well balanced dietAdena [facility] Work Phone: Hospital Discharge instructionsAmbulatory Orders* Referral to Orthopedic Surgery Location: None Selected [facility] Work Phone: Progress note Author Niki Weeks [facility] August 05, 2023 8:00am Note Date/Time August 05, 2023 8:00am [facility] [address] [place] [address] Neurosurgery Progress Note Signed Patient: Cassi Rodrigez MR#: [id number] : 1950 Acct:[id number] Age/Sex: 73 / F Adm Date: 3 Loc: 4N Room: [address] [place] [address] Type: [facility] Attending Dr: Niki Weeks MD Copies to: [...] 08/05/23 07:21 08/05/23 07:21 08/05/23 07:21 08/05/23 07:08/04/23 00:00 Narrative: Mrs. Rodrigez was resting [...] % (Auto) 77.1, Lymph % (Auto) 11.8, [place] % (Auto) 9.2, Eos % (Auto) 1.7, Baso % (Auto) 0.2, Nucleat RBC Rel Count 0.4, Neut # (Auto) 5.6, Lymph # (Auto) 0.9 L, [place] # (Auto) 0.7, Eos # (Auto) 0.1, [...] signed by Niki Weeks MD> 08/05/23 0800 [facility] Work Phone: [facility] for referral (narrative)* Outpatient Procedure (Routine) - Closed Specialty Diagnoses / Procedures Referred By Contac t Referred To Contact [facility] [place] Diagnoses Chronic fatigue Procedures ECG COMPLETE ECG ROUTINE ECG W/LEAST 12 LDS W/I&[place] [address] [place] [address] [facility] [address] [place] [address] Referral ID Status Reason Start Date Expiration Date V isits Requested Visits Authorized [id number] Closed Auto-Generate d Referral 07/23/2022 07/23/2023 1 1 [facility] for referral (narrative)* Outpatient Procedure (Routine) - Pending Review Specialty Diagnoses / Procedures Referred By Contac t Referred To Contact [facility] [place] Diagnoses Sinus node dysfunction (HCC) Cardiac pacemaker in situ Bradycardia Procedures ECG COMPLETE ECG ROUTINE ECG W/LEAST 12 LDS W/I&R Mirian Bell APRN.CNP [address] [place] [address] [facility] [place] [address] [place] [address] Referral ID Status Reason Start Date Expiration Date Visits Requested Visits Authorized [id number] Pending Review Auto-Generat ed Referral 3 09/07/2024 1 1 [facility] [place] [facility] Summary Purpose Family History No Family History [...] neoplasm of breast Unknown family member Unknown Relationship Condition Age at Onset Recorded Date/T miguel father Malignant neoplasm of pancreas Unknown brother Malignant neoplasm of pancreas Unknown mother Malignant neoplasm of breast Unknown family member [...] Chief Complaint Cough , Drainage For Weeks [phone] BACK ISSUES Chief Complaint BACK ISSUES Amb Documentation z95.0 Reason for Visit Hypertension Lumbar stenosis with neurogenic claudication Chief Complaint BACK ISSUES Amb Documentation z95.0 M54.50 1 month increased pain as before surgery w/blades Reason for Visit Hypertension Lumbar stenosis with neurogenic claudication Age-related osteoporosis without current pathological fracture Chronic kidney disease Hypertension Lumbosacral spondylosis with radiculopathy Obstructive sleep apnea Chief Complaint z95.0 M54.50 1 month increased pain as before surgery w/blades m54.16 Reason for Visit Age-related osteopor osis without current pathological fracture Chronic kidney disease Hypertension Lumbosacral spondylosis with radiculopathy Obstructive sleep apnea Arthropathy of right hip Greater trochanteric bursitis of both hips History of lumbar surgery Pain of both sacroiliac joints Chief Complaint M54.50 1 month increased pain as before surgery w/blades m54.16 RENAL CKD Reason for Visit Age-related osteopor osis without current pathological fracture Chronic kidney disease Hypertension Lumbosacral spondylosis with radiculopathy Obstructive sleep apnea Arthropathy of right hip Greater trochanteric bursitis of both hips History of lumbar surgery Pain of both sacroiliac joints Anemia of renal disease Chronic kidney disease [id number] Leukopenia Pancreatic cancer Secondary hyperparathyroidism Vitamin D deficiency Reason for Referral Specialty Diagnoses / Procedures Referred By Saturnino bhatia Referred To [facility] [place] Diagnoses Cervicalgia Procedures CONSULT TO [facility] OFFICE/OUTPATIENT [facility] [address] [place] [address] [place] [address] Referral ID Status Reason Start Date Expiration Date Visits Requested Visits Authorized [id number] Authorized PCP Requested Referral 03/07/2024 03/07/2025 1 1 Specialty Diagnoses / Procedures Referred By Contac t Referred To Contact Diagnoses SHELL (obstructive sleep apnea) Procedures CONSULT TO SLEEP MEDICINE - ADULT OFFICE/OUTPATIENT [facility] [facility] [place] [address] [place] [address] Referral ID Status Reason Start Date Expiration Date Visits Requested Visits Authorized [id number] Authorized PCP Requested Referral 03/07/2024 03/07/2025 1 1 Specialty Diagnoses / Procedures Referred By Contac t Referred To Contact HEADACHE Diagnoses Intractable 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 aura and without status migrainosus Procedures CONSULT TO HEADACHE CLINIC OFFICE/OUTPATIENT [facility] 60 MINUTES Lauren Otero, OPERATIONS RECRUITER.BRIAR CUTTER [address] [place] [address] Neur Headache Main [address] [place] [address] Referral ID Status Reason Start Date Expiration Date Visits Requested Visits Authorized [id number] Authorized PCP Requested Referral 12/23/2023 12/22/2024 1 [...] migrainosus Procedures CONSULT TO HEADACHE CLINIC OFFICE/OUTPATIENT [facility] 60 MINUTES Lauren Otero, OPERATIONS RECRUITER.BRIAR CUTTER [address] [place] [address] Neur Headache Main [address] [place] [address] Referral ID Status Reason Start Date Expiration Date V isits Requested Visits Authorized [id number] Closed PCP Requested Referral 12/23/2023 12/22/2024 1 1 Reason Comments Established Patient botox Specialty Diagnoses / Procedures Referred By Contac t Referred To Contact ADULT NEUROLOGY Diagnoses Chronic migraine without aura, intractable, without status migrainosus Procedures BOTULINUM TOXIN A PER 1 UNIT CHEMODERVATE FACIAL/TRIGEM/[place] [address] [id number] [place] [address] Neur Adult Frvw [address] [place] [id number] Referral ID Status Reason Start Date Expiration Date V isits Requested Visits Authorized [id number] Authorized 03/13/2024 03/13/2025 4 4 Source Comments (unrecognize d section and content) In the event this informatio n is protected by the Federal Confidentiality of Alcohol and Drug Abuse Patient Records regulations: The Federal rules restrict any use of the information to criminally investigate or prosecute any alcohol or drug abuse patient.[facility] the event this information is protected by the Federal Confidentiality of Alcohol and Drug Abuse Patient Records regulations: The Federal rules restrict any use of the information to criminally investigate or prosecute any alcohol or drug abuse patient.[facility] GeneralIn the event this information is protected by the Federal Confidentiality of Alcohol and Drug Abuse Patient Records regulations: The Federal rules restrict any use of the information to criminally investigate or prosecute any alcohol or drug abuse patient.[facility] GeneralIn the event this information is protected by the Federal Confidentiality of Alcohol and Drug Abuse Patient Records regulations: The Federal rules restrict any use of the information to criminally investigate or prosecute any alcohol or drug abuse patient.[facility] General[facility] the event this information is protected by the Federal Confidentiality of Alcohol and Drug Abuse Patient Records regulations: The Federal rules restrict any use of the information to criminally investigate or prosecute any alcohol or drug abuse patient.[facility] General[facility] the event this information is protected by the Federal Confidentiality of Alcohol and Drug Abuse Patient Records regulations: The Federal rules restrict any use of the information to criminally investigate or prosecute any alcohol or drug abuse patient.[facility] General[facility] the event this information is protected by the Federal Confidentiality of Alcohol and Drug Abuse Patient Records regulations: The Federal rules restrict any use of the information to criminally investigate or prosecute any alcohol or drug abuse patient.[facility] General[facility] the event this information is protected by the Federal Confidentiality of Alcohol and Drug Abuse Patient Records regulations: The Federal rules restrict any use of the information to criminally investigate or prosecute any alcohol or drug abuse patient.[facility] General[facility] the event this information is protected by the Federal Confidentiality of Alcohol and Drug Abuse Patient Records regulations: The Federal rules restrict any use of the information to criminally investigate or prosecute any alcohol or drug abuse patient.[facility] GeneralIn the event this information is protected by the Federal Confidentiality of Alcohol and Drug Abuse Patient Records regulations: The Federal rules restrict any use of the information to criminally investigate or prosecute any alcohol or drug abuse patient.[facility] General[facility] the event this information is protected by the Federal Confidentiality of Alcohol and Drug Abuse Patient Records regulations: The Federal rules restrict any use of the information to criminally investigate or prosecute any alcohol or drug abuse patient.[facility] GeneralIn the event this information is protected by the Federal Confidentiality of Alcohol and Drug Abuse Patient Records regulations: The Federal rules restrict any use of the information to criminally investigate or prosecute any alcohol or drug abuse patient.[facility] GeneralIn the event this information is protected by the Federal Confidentiality of Alcohol and Drug Abuse Patient Records regulations: The Federal rules restrict any use of the information to criminally investigate or prosecute any alcohol or drug abuse patient.[facility] GeneralIn the event this information is protected by the Federal Confidentiality of Alcohol and Drug Abuse Patient Records regulations: The Federal rules restrict any use of the information to criminally investigate or prosecute any alcohol or drug abuse patient.[facility] Care Teams (unrecognized sec tion and content) Team Status: Active Member Role Status Dates [...] April 21, 2024 End: April 21, 2024 Team Status: Active Member Role Status Dates Broderick Howard DO Primary Care Provider Active Start: May 05, 2024 David Mcfadden PA-C Attending Provider Active S tart: May 05, 2024 Team Status: Active Member Role Status Dates Broderick Howard DO Primary Care Provider Active Start: May 15, 2024 Keith Parks MD Attending Provider Active Start: May 15, 2024 Team Status: Inactive Member Role Status Dates Broderick Howard DO Primary Care Provider Active Start: May 30, 2024 End: May 30, 2024 David Mcfadden PA-C Attending Provider Active S tart: May 30, 2024 End: May 30, 2024 Team Status: Active Member Role Status Dates Broderick Howard DO Primary Care Provider Active Start: June 05, 2024 Keith Parks MD Attending Provider Active Start: June 05, 2024 Team Status: Inactive Member Role Status Dates Broderick Howard DO Primary Care Provider Active Start: June 08, 2024 End: June 08, 2024 Katina Ordoñez MD Attending Provider Active Start : June 08, 2024 End: June 08, 2024 Team Status: Active Member Role Status Dates Broderick Howard DO Primary Care Provide r, Attending Provider Active Start: March 03, 2024 Team Status: Inactive Member Role Status Dates Broderick Howard DO Primary Care Provide r, Attending Provider Active Start: March 09, 2024 End: March 09, 2024 Electroformer Relationship Specialty Start Date End Date Broderick Howard, DO [address] [place] [address] PCP - General Internal Medicine 09/21/18 Kitty Valente MD [address] [place] [address] Primary Staff Physician Cardiology 01/31/19 Electroformer Relationship Specialty Start Date End Date Broderick Howard, DO [address] [place] [address] PCP - General Internal Medicine 09/21/18 Kitty Valente MD [address] [place] [address] Primary Staff Physician Cardiology 01/31/19 Electroformer Relationship Specialty Start Date End Date Broderick Howard, DO [address] [place] [address] PCP - General Internal Medicine 09/21/18 Kitty Valente MD [address] [place] [address] Primary Staff Physician Cardiology 01/31/19 Electroformer Relationship Specialty Start Date End Date Broderick Howard, DO [address] [place] [address] PCP - General Internal Medicine 09/21/18 Kitty Valente MD [address] [place] [address] Primary Staff Physician Cardiology 01/31/19 Electroformer Relationship Specialty Start Date End Date Broderick Howard, DO [address] [place] [address] PCP - General Internal Medicine 09/21/18 Kitty Valente MD [address] [place] [address] Primary Staff Physician Cardiology 01/31/19 Team Status: Inactive Member Role Status Dates Broderick Howard DO Primary Care Provider, Attending Pr ovider Active Electroformer Relationship Specialty Start Date End Date Broderick Howard DO [address] [place] [address] PCP - General Internal Medicine 09/21/18 Kitty Valente MD [address] [place] [address] Primary Staff Physician Cardiology 01/31/19 Team Status: Inactive Member Role Status Dates Broderick Howard DO Primary Care Provider Active Niki Weeks MD Attending Provider Active Electroformer Relationship Specialty Start Date End Date Broderick Howard DO [address] [place] [address] PCP - General Internal Medicine 09/21/18 Kitty Valente MD [address] [place] [address] Primary Staff Physician Cardiology 01/31/19 Electroformer Relationship Specialty Start Date End Date Broderick Howard DO [address] [place] [address] PCP - General Internal Medicine 09/21/18 Kitty Valente MD [address] [place] [address] Primary Staff Physician Cardiology 01/31/19 Electroformer Relationship Specialty Start Date End Date Broderick Howard DO [address] [place] [address] PCP - General Internal Medicine 09/21/18 Kitty Valente MD [address] [place] [address] Primary Staff Physician Cardiology 01/31/19 Electroformer Relationship Specialty Start Date End Date Broderick Howard DO [address] [place] [address] PCP - General Internal Medicine 09/21/18 Kitty Valente MD [address] [place] [address] Primary Staff Physician Cardiology 01/31/19 Electroformer Relationship Specialty Start Date End Date Broderick Howard DO [address] [place] [id number] PCP - General Internal Medicine 09/21/18 Kitty Valente MD [address] [place] [id number] Primary Staff Physician Cardiology 01/31/19 Team Status: Inactive Member Role Status Dates Broderick Howard DO Attending Provider Active Sta rt: November 24, 2023 End: November 24, 2023 Team Status: Inactive Member Role Status Dates Broderick Howard DO Primary Care Provide r, Attending Provider Active Start: February 09, 2024 End: February 09, 2024 Electroformer Relationship Specialty Start Date End Date Broderick Howard DO [address] [place] [id number] PCP - General Internal Medicine 09/21/18 Kitty Valente MD [address] [place] [id number] Primary Staff Physician Cardiology 01/31/19 Team Status: Active Member Role Status Dates Broderick Howard DO Primary Care Provide r, Attending Provider Active Start: February 10, 2024 Team Status: Active Member Role Status Dates Broderick Howard DO Primary Care Provider Active Start: February 15, 2024 HERSON Golden Attending Provider Active St art: February 15, 2024 Electroformer Relationship Specialty Start Date End Date Broderick Howard DO [address] [place] [id number] PCP - General Internal Medicine 09/21/18 Kitty Valente MD [address] [place] [address] Primary Staff Physician Cardiology 01/31/19 Electroformer Relationship Specialty Start Date End Date Broderick Howard DO [address] [place] [address] PCP - General Internal Medicine 09/21/18 Kitty Valente MD [address] [place] [address] Primary Staff Physician Cardiology 01/31/19 INFORMATION SOURCE (unrecogn ized section and content) DATE CREATED AUTHOR 07/24/2022 [facility] DATE CREATED AUTHOR AUTHOR'S ORGANIZ ATION 04/23/2023 [facility] DATE CREATED AUTHOR AUTHOR'S ORGANIZ ATION 06/11/2023 [facility] DATE CREATED AUTHOR AUTHOR'S ORGANIZ ATION 09/14/2023 [facility] DATE CREATED AUTHOR AUTHOR'S ORGANIZ ATION 03/08/2024 [facility] DATE CREATED AUTHOR AUTHOR'S ORGANIZ ATION 06/02/2024 [facility] DATE CREATED AUTHOR AUTHOR'S ORGANIZ ATION 06/10/2024 [facility] DATE CREATED AUTHOR AUTHOR'S ORGANIZ ATION 06/12/2024 [facility] EPIC Goals (unrecognized section [...] BE BASED ON THE PRIMARY CLINICAL RECORDS. [facility] [employer] [facility]. provides no warranty or guarantee of the accuracy or completeness of information in this document.
--- NOTE | 2024-06-15 09:33 | P.CN_ITS ---
Consult Note: HPI Data of Consult Patient: known to practice within the last 3 years Requesting Physician: Tiana Brush NP Primary Care Provider: Broderick Joiner, DO Consult Narrative Reason for consult: chronic pain Narrative: Cassi Rodrigez a pleasant 74 year old female presents for evaluation and management of chronic low back pain with radiculopathy. Patient reports spinal surgery with Dr Weeks 08/07, unknown surgery, and has been evaluated by Dr Le as she has had severe back and right leg pain since October 2023. Patient has been unable to tolerate HEP or PT due to severe pain. Recent lumbar MRI without contrast completed at [facility] shows multilevel changes, including modic changes, facet arthropathy DDD and spinal stenosis. Pain today 8/10 in low back and right leg aching, improvement in burning pain since recent JAY. Patient on warfarin cannot take NSAIDs, currently on zonisamide 300mg HS, amitriptyline, venlafaxine, and PRN tylenol without improvement. has failed gabapentin, allergy to lyrica. Pain increased with all activity and weight bearing. Denies falls. Patient recently underwent right L3/4 L4/5 TFESI with no significant improvement, pain intensity has changed from burning to aching/heavinss in legs and moderate to severe pain in back. no improvement from right SIJ injection. cc:: CC: Tiana Brush NP Review of Systems ROS Status of ROS 10 or more systems reviewed and unremark able except as noted in history and below Musculoskeletal Reports: back pain, extremity pain and joint pain [facility] History (Updated 06/15/24 @ 09:36 by Tiana Brush NP) Low back pain ?M54.50 - Low back pain, unspecified (ICD-10) Osteoarthritis ?M19.90 - Unspecified osteoarthritis, unspecified site (ICD-10) Pancreatic cancer ?C25.9 - Malignant neoplasm of pancreas, unspecified (ICD-10) Seizure ?R56.9 - Unspecified convulsions (ICD-10) Acid reflux ?K21.9 - Gastro-esophageal reflux disease without esophagitis (ICD-10) Bradycardia ?R00.1 - Bradycardia, unspecified (ICD-10) Asthma ?J45.909 - Unspecified asthma, uncomplicated (ICD-10) Hypertension ?I10 - Essential (primary) hypertension (ICD-10) Surgical History S/P placement of cardiac pacemaker ?Z95.0 - Presence of cardiac pacemaker (ICD-10) 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) ?Z90.49 - Acquired absence of other specified parts of digestive tract (ICD- 10) S/P brain surgery ?Z98.890 - Other specified postprocedural states (ICD-10) H/O lumbosacral spine surgery ?Z98.890 - Other specified postprocedural states (ICD-10) H/O cervical spine surgery ?Z98.890 - Other specified postprocedural states (ICD-10) Status post shoulder surgery ?Z98.890 - Other specified postprocedural states (ICD-10) Hx of cholecystectomy ?Z90.49 - Acquired absence of other specified parts of digestive tract (ICD- 10) History of appendectomy ?Z90.49 - Acquired absence of other specified parts of digestive tract (ICD- 10) Meds Home Medications and Allergies Home Medications ?Medication ?Instructions ?Recorded ?Confirmed ?Type amitriptyline 10 mg tablet 15 mg PO DAILY 05/04/24 06/05/24 History carvedilol 12.5 mg tablet 12.5 mg PO BID 05/04/24 06/05/24 History levetiracetam 750 mg tablet 750 mg PO BID 05/04/24 06/05/24 History losartan 25 mg tablet 25 mg PO DAILY 05/04/24 06/05/24 History omeprazole 40 mg capsule,delayed 40 mg PO DAILY 05/04/24 06/05/24 History release ondansetron 4 mg disintegrating 4 mg PO DAILY PRN nausea and 05/04/24 06/05/24 History tablet vomiting venlafaxine 150 mg 150 mg PO DAILY 05/04/24 06/05/24 History capsule,extended release 24 hr warfarin 4 mg tablet 4 mg PO DAILY 05/04/24 06/05/24 History zonisamide 100 mg capsule 300 mg PO .qhs 05/04/24 06/05/24 History Allergies Allergy/AdvReac Type Severity Reaction Status Date / Time dexamethasone Allergy Unknown Rash Verified 06/05/24 09:51 pregabalin [From Lyrica] Allergy Unknown Rash Verified 06/05/24 09:51 Exam Constitutional Documenting provider has reviewed patient's vital signs: yes Common normals: no apparent distress, oriented x3, healthy appearing, alert and well nourished General appearance: cooperative HENMT Common normals: normocephalic, hearing grossly normal bilaterally and moist oral mucous membranes Head and scalp: normocephalic Eye Common normals: PERRL Pupil: PERRL Neck & C-Spine Common normals: full ROM General: normal visual inspection Chest Common normals: inspection of chest normal Respiratory Common normals: normal respiratory effort, no retractions and no use of accessory muscles Back & Pelvis Lumbar spine/lower back: ROM limited, pain with ROM, lumbar spinal tenderness, paraspinal muscle tenderness, straight leg raise positive right and straight leg raise positive left Sacroiliac joints: SI joint(s) abnormal Other: right sij positive emmy(patricks), gaenslens, thigh thrust, compression test decreased sensation to right L3,4,5,S1 pattern strength 4/5 in RLE 5/5 in LLE Extremity Common normals: normal to inspection and full ROM Neuro Common normals: oriented x3, CN's II-XII intact bilaterally, moves all extremities, no focal motor deficits, no sensory deficits noted and deep tendon reflexes 2+ bilaterally Sensorium/orientation: alert Gait (neuro): assistive device used cane Motor exam: no movement abnormalities noted and strength abnormal Psych Common normals: mental status grossly normal, thought process normal, cooperative, affect normal, speech normal and activity/motor behavior normal Speech: normal speech Thought process: normal thought process Results Additional Findings Additional findings: If on a controlled substance or opioids, I have checked an [place]AR[place] report on this patient and there are no aberrancies noted in the prescribing history.??If on a controlled substance or opioid a drug screen was completed and reviewed within the last year, and if there has not been a drug screen completed we ordered one today to monitor higher risk, state monitored pain medication use. As part of providing excellent, safe, comprehensive care, the following was completed at our patient's visit: 1. A medication reconciliation and review to ensure accurate knowledge of current/active medications, including asking our patients to inform us about any [id number] medications or herbal remedies/nutritional supplements/alternative remedies. 2. A review to specifically ensure our patients have had annual screening for screening for depression, screening for tobacco use, and screening for unhealthy alcohol use. For concerning screenings had a discussion with the patient, provided patient education, and recommended follow-up with primary care provider when appropriate. If patient noted with a risk of falling, they received education on strength, gait, and balance training to prevent future risk of falling. Assessment and Plan Assessment and Plan (1) Lumbar stenosis with neurogenic claudication: (2) Sacroiliitis: (3) Post laminectomy syndrome: (4) Lumbar radiculopathy: (5) Myalgia, multiple sites: Plan unfortunately no significant relief from right L3/4 L4/5 TFESI and right SIJ injection upcoming consult with NS could consider alternative ESIs or SCS trial in the future if nonsurgical start cyclobenzaprine 5mg 1-2tabs BID PRN pain/spasms, risks vs benefits reviewed cannot take NSAIDs CKD avoid nsaids continue tylenol PRN f/u after NS consult
== END 2024-06-15 09:05 | disposition home or self-care (01) ==
LOC: PM 09:04
PROVIDERS: PCP Internal Medicine; Visit Provider Nurse Practitioner
DX: M48.062 Spinal stenosis, lumbar region with neurogenic claudication (principal); M46.1 Sacroiliitis, not elsewhere classified; M96.1 Postlaminectomy syndrome, not elsewhere classified; M54.16 Radiculopathy, lumbar region; M79.10 Myalgia, unspecified site
CPT/HCPCS: G0463

== ENCOUNTER 2024-07-05 10:32 | Outpatient (OUT) | payer OTHER, SELFPAY ==
--- OUTSIDE RECORDS SUMMARY | 2024-07-05 10:46 | XMS_ITS | CCD ---
Author Organization [facility] Care Team Providers Care Freight And Passenger Agent Name Role Phone Bertram Sanders Unavailable Broderick [...] Unavailable FAWWAD, AGUILAR H Admitting Unavailable FAWWAD, H Attending Unavailable FAWWAD, AGUILAR [...] Unavailable Ball, DO Broderick Primary Care Provider [phone] Ball, DO Villafana Attending Provider [phone] Blades, Niki Unavailable Bladetina, MD Niki Gomez Attending Provider [phone] Pascual Vidal MD, Kitty Unavailable Un available BELLMIRIAN MCGINNIS Attending Unavailable BALL, BRODERICK E Primary Care Unavailable BALL, BRODERICK E Primary Care Unavailable Ball DO, Broderick Quinteros Primary Care Provider Ball, DO Broderick Primary Care Provider Ball, DO Villafana Attending Provider [phone] WILIAN Mcfadden Attending Provider Blades, Niki A [...] Admitting Unavailable Ball, Broderick Primary Care Unavailable David Mcfadden Admitting Unavailable Bogdan, David Attending Unavailable Ball, DO Broderick Primary Care Provider DO Broderick Howard Attending Provider Kasey PAUL, Keith Barron Attending Unavailable Kasey PAUL, Keith Barron Attending Unavailable DAVID MCFADDEN Attending Unavailable DAVID MCFADDEN Referring Unavailable DAVID MCFADDEN Referring Unavailable JR. SALTER GEORGE C Attending Unavaila ble DO Broderick Howard Primary Care Provider [phone] BRODERICK HOWARD Primary Care Unavailable ALEJANDRO VILLAR Attending Unavailable ALEJANDRO VILLAR Referring Unavailable BRODERICK HOWARD Primary Care Unavailable ALEJANDRO VILLAR Attending Unavailable BRODERICK HOWARD Primary Care Unavailable RANDA REILLY Attending Unavailable RANDA REILLY Referring Unavailable BRODERICK HOWARD Primary Care Unavailable RANDA REILLY Attending Unavailable LAUREN OTERO Referring Unavailable BRODERICK HOWARD Primary Care Unavailable Allergies Allergy Classification Reported Allergen(s) Allergy Type Date of Onset Reaction(s) Facility (20 sources) Dexamethasone; Translations: [DEXAMETHASONE] Drug Allergy 10-03-[address] [facility] (20 sources) pregabalin; Translations: [PREGABALIN] Drug Allergy 08-24-[address] [facility] (20 sources) rifAXIMin Drug Allergy 02-09-20 24 [facility] (1 source) Dexamethasone Drug Allergy [facility] (1 source) pregabalin Drug Allergy 11-15-[address] [facility] (14 sources) Dexamethasone Drug Allergy 02-08-20 24 Unknown, Unknown Reaction [facility] (8 sources) Allergies Reconciled Propensity to adverse reactions Unknown [facility] Other (8 sources) patient allergy list reviewed by nurse or physicia Propensity to adverse reactions 04-13-20 19 Comment:Done [facility] Other (1 source) Dexamethasone Drug Allergy 01-06-20 21 [facility] (1 source) pregabalin Drug Allergy 01-06-20 21 [facility] Medications Current Medications Medication Drug Class(es) Dates Sig (Normalized) Sig (Original) amitriptyline hydrochloride 10 mg oral tablet (20 sources) Tricyclic Antidepressant Start: 07-25-2024 take 25 mg by mouth once daily [...] sources) Dihydropyridine Calcium Channel Dylan Start: End: 4 take 1 tablet by mouth once daily amLODIPine (NORVASC) 5 mg tablet Take 5 mg by mouth once daily. 06/23/2022 Active Start: 01-06-2021 End: 07-20-2023 take 10 mg by mouth once daily Amlodipine Discontinued 10 MG PO Daily January 06, 2021 1:00am July 20, 2023 11:41am Comment on above: Take 5 mg by mouth o nce daily. amoxicillin 875 mg / clavulanate 125 mg oral tablet (1 source) Penicillin-class Antibacterial Start: 4 take 1 tablet by mouth every twelve [...] Orally bid for 7 days Jul, Active cyclobenzaprine hydrochloride 5 mg oral tablet (1 source) Muscle Relaxant Start: take 5 mg by mouth twice daily Cyclobenzaprine Active 5 MG PO Twice daily June 27, 2024 12:00am dicyclomine hydrochloride 20 mg oral tablet (9 [...] 2024 12:00am Start: 01-06-2021 End: 12-22-2024 take 1 tablet by mouth twice daily levETIRAcetam (KEPPRA) 750 mg tablet Take 1 tablet by mouth two times a day. 180 tablet 3 12/23/2023 12/22/2024 Active take 1 tablet by aris th every twelve hours levETIRAcetam 750 MG 1 tablet Orally every 12 hrs Active Comment on above: Take 1 tablet by aris th twice daily. Take 1 tablet by aris th two times a day. take 1 tablet by aris th twice a day linaclotide 0.072 mg oral [...] Active 25 MG PO Every morning 90 February 02, 2024 1:09pm omeprazole 40 mg delayed release oral capsule (20 sources) Proton Pump Inhibitor Start: 01-06-2021 End: 07-20-2023 take 40 mg by mouth twice daily Omeprazole Discontinued 40 MG PO Twice daily 60 January 06, 2021 1:00am July 20, 2023 11:46am Start: 01-27-2011 End: 01-06-2021 take 40 mg by mouth once daily in the morning Omeprazole Active 40 MG PO Every morning July 20, 2023 11:46am Comment on above: Take 1 capsule by [facility] once daily. ondansetron 4 mg disintegrating oral tablet (20 sources) Serotonin-3 Receptor Antagonist Start: take 1 tablet by mouth every six hours as needed for nausea Ondansetron Active 0 .ROUTE .COMPLEX June 06, 2024 8:49am DISSOLVE 1 TABLET IN MOUTH EVERY 6 HOURS NEEDED FOR NAUSEA Start: 11-25-2020 End: 06-06-2024 ondansetron orally disintegr ating (ZOFRAN ODT) 4 mg disintegrating tablet 11/25/2020 Active take 1 tablet by aris every six hours as needed for nausea Ondansetron 4 MG DISSOLVE 1 TABLET IN MOUTH EVERY 6 HOURS NEEDED FOR NAUSEA for 3 Active Ondansetron HCl 4 MG 1 tablet on the tongue and allow to dissolve Orally PRN PRN Active traMADol hydrochloride 50 mg oral tablet (20 sources) Opioid Agonist Start: 03-29-2024 End: 04-13-2024 take 50 mg by mouth twice daily Tramadol Active 50 MG PO Twice daily 30 April 13, 2024 3:16pm Start: 10-14-2020 End: [...] on above: Take 1 capsule by [facility] once daily. zonisamide 100 mg oral capsule [...] Sig (Original) acetaminophen 500 mg oral capsule (8 sources) Start: 07-20-2023 End: 02-08-2024 take 2 [...] mg by mouth one time a week. onabotulinumtoxina 100 unt injection (2 sources) Acetylcholine Release Inhibitor Start: 05-23-2024 End: 05-23-2024 onabotulinum toxin type A 200 Units injection (BOTOX) Start: 05-23-2024 End: 05-23-2024 onabotulinum toxin type A 20 0 Units injection (BOTOX) 1 ml enoxaparin sodium 100 mg/ml prefilled syringe (7 sources) Low Molecular Weight Heparin Start: 08-03-2023 End: 06-08-2024 Enoxaparin (Lovenox) 100 mg/mL Syringe Discontinued 90 MG SUBCUT Daily August 03, 2023 12:00am June 08, 2024 2:29pm hydrALAZINE hydrochloride 50 mg oral tablet (10 sources) Arteriolar Vasodilator Start: 01-06-2021 End: 07-20-2023 Hydralazine Discontinued 50 MG PO As Directed January 06, 2021 1:00am July 20, 2023 11:41am melatonin 5 mg oral tablet (10 sources) Start: 01-06-2021 End: 07-20-2023 take 5 [...] Not-Taking/PRN naproxen sodium 220 mg oral tablet (13 sources) Nonsteroidal Anti-inflammatory Drug Start: 01-06-2021 End: [...] nee ded. tiZANidine 4 mg oral tablet (7 sources) Central alpha-2 Adrenergic Agonist Start: 08-05-2023 [...] February 08, 2024 11:26am Start: 10-03-2015 take 1 tablet by aris th once daily warfarin (COUMADIN) 4 mg tablet Take 1 tablet by mouth once daily. 0 10/03/2015 Active Comment on above: Take 1 tablet [...] disorder, unspecified] Onset: 8 06-21-2018 Chronic Asthma (14 sources) Asthma without status asthmaticus; Translations: [Asthma, unspecified, unspecified status] Onset: 4 02-08-2024 Chronic Biliary tract disease (1 source) Disorder of gallbladder; Translations: [Disease of gallbladder, unspecified] 02-08-2024 Episodic Cancer of other GI organs; peritoneum (15 sources) Carcinoma of ampulla of Vater; 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] Onset: 1 03-10-2011 Chronic Cancer of other GI organs; peritoneum (20 sources) History of cancer of ampulla of duodenum; Translations: [Personal history of malignant neoplasm of other digestive organs] Onset: 4 06-25-2024 Episodic Cancer of pancreas (20 sources) Malignant tumor of pancreas; Translations: [Malignant neoplasm of pancreas, unspecified] Onset: 1 05-14-2015 Chronic Cardiac dysrhythmias (16 sources) Sinus node dysfunction; Translations: [Sick sinus [...] 11-10-2021 Chronic Diseases of white blood cells (4 sources) Leukopenia; Translations: [Decreased white blood cell [...] [Vitamin D deficiency, unspecified] 02-08-2024 Chronic Osteoarthritis (7 sources) Arthritis; Translations: [Unspecified osteoarthritis, unspecified site] 02-08-2024 Chronic Osteoporosis (20 sources) Osteoporosis; Translations: [Age-related osteoporosis without current pathological fracture] Chronic Other aftercare (16 sources) H/O: high risk medication; Translations: [Other prison (current) drug therapy] Episodic Other aftercare (20 sources) Long-term current use of anticoagulant; Translations: [care home (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 of anticoagulants] Onset: 4 02-08-2024 Episodic Other aftercare (5 sources) Encounter for therapeutic drug level monitoring; Translations: [ENC THERAPEUTC DRUG LEVL MONITORING] Onset: 3 Episodic Other aftercare (1 source) lobsterman (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 of anticoagulants; Translations: [FCI CURRNT USE ANTICOAGULANTS] Onset: 3 Episodic Other aftercare (8 sources) Long-term current use of drug therapy; Translations: [Other superintendent terminal (current) drug therapy] Episodic Other aftercare (1 source) Drug therapy finding; Translations: [Other superintendent terminal (current) drug therapy] 02-08-2024 Episodic Other and ill-defined heart disease (1 source) Heart disease; Translations: [Heart disease, unspecified] 02-08-2024 Chronic Other and unspecified benign neoplasm (17 sources) History of polyp of colon; Translations: [Personal history of colonic polyps] Episodic Other bone disease and musculoskeletal deformities (8 sources) Disorder of bone; Translations: [Disorder of bone, unspecified] Episodic Other circulatory disease (15 sources) Inferior vena cava filter in situ; [...] as traumatic] Episodic Other connective tissue disease (3 sources) Trochanteric bursitis; Translations: [Trochanteric bursitis, right hip] 04-21-2024 Episodic Other connective tissue disease (3 sources) Trochanteric bursitis, right hip; Translations: [Enthesopathy of hip region] 04-21-2024 Episodic Other connective tissue disease (1 source) Pain in leg, unspecified; Translations: [Pain in leg, unspecified] Onset: Episodic Other diseases of kidney and ureters (2 sources) Secondary hyperparathyroidism; Translations: [Secondary hyperparathyroidism of renal origin] 06-08-2024 Chronic Other diseases of kidney and ureters (2 sources) Secondary hyperparathyroidism of renal origin; Translations: [Secondary hyperparathyroidism (of renal origin)] 06-08-2024 Chronic Other diseases of kidney and ureters (1 source) Kidney disease; Translations: [Disorder of kidney and ureter, unspecified] 02-08-2024 Episodic Other gastrointestinal disorders (19 sources) Irritable bowel syndrome characterized by constipation; [...] of falling] Episodic Other nervous system disorders (5 sources) Postoperative pain ; Translations: [Other acute postprocedural pain] 03-03-2024 Episodic Other nervous system disorders (1 source) Other acute postprocedural pain; Translations: [Other acute postprocedural pain] Onset: 4 Episodic Other nutritional; endocrine; and metabolic disorders (20 sources) Obesity; Translations: [Obesity, unspecified] Chronic Other screening for suspected conditions (not mental disorders or infectious disease) (5 sources) Encounter for screening mammogram for malignant neoplasm of breast; Translations: [Other screening mammogram] Onset: 2 Episodic Other upper respiratory infections (17 sources) Acute maxillary sinusitis; Translations: [Acute maxillary sinusitis, unspecified] Episodic Residual codes; unclassified (15 sources) Insomnia; Translations: [Other insomnia] Onset: 8 06-21-2018 Chronic Residual codes; unclassified (20 sources) Obstructive sleep apnea syndrome; Translations: [Obstructive sleep apnea (adult) (pediatric)] 02-08-2024 Chronic Residual codes; unclassified (6 sources) Obstructive sleep apnea (adult) (pediatric); Translations: [...] [Localized edema] 02-08-2024 Episodic Residual codes; unclassified (3 sources) History of operative procedure on lumbar spinal structure; Translations: [Other specified postprocedural states] 04-21-2024 Episodic Residual codes; unclassified (3 sources) Other specified postprocedural states; Translations: [Personal [...] [Encounter for preprocedural laboratory examination] Onset: 3 Unclassified (1 source) Established Patient Onset: 4 Viral infection (4 sources) COVID-19; Translations: [COVID-19] Onset: 2 Past or Other Problems Problem Classification Problem Date Documented Da te Episodic/Chronic Blindness and vision defects (15 sources) Homonymous hemianopia; Translations: [Homonymous bilateral field defects, unspecified side] Onset: 10-08-2015 10-08-2015 Episodic Cardiac dysrhythmias (16 sources) Bradycardia; Translations: [Bradycardia, unspecified] Onset: 05-14-2015 05-14-2015 Episodic Chronic kidney disease (4 sources) Chronic kidney disease; Translations: [CHRONIC KIDNEY DISEASE STAGE 3A] Onset: 08-12-2022 Complication of device; implant or graft (15 sources) Complication of intravascular line; Translations: [Unspecified [...] unspecified] Onset: 04-13-2019 02-08-2024 Episodic Epilepsy; convulsions (12 sources) Seizure; Translations: [Other convulsions] Onset: 01-24-2015 [...] articular cartilage] Resolved: 07-30-2021 Episodic Other aftercare (15 sources) Anticoagulant effect; Translations: [care home (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 of anticoagulants] Onset: 05-14-2015 05-14-2015 Episodic Other aftercare (1 source) Other superintendent terminal (current) drug therapy; Translations: [OTH [facility] CURRENT DRUG THERAPY] Onset: 08-04-2022 Episodic Other [...] Resolved: 03-03-2022 Episodic Other connective tissue disease (15 sources) Pain in limb; Translations: [Pain in unspecified limb] Onset: 03-13-2019 03-13-2019 Episodic Other connective tissue disease (15 sources) Pain in left arm; Translations: [Pain [...] unspecified] Resolved: 07-24-2020 Episodic Other eye disorders (15 sources) Hypertropia of right eye; 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, right eye] Onset: 10-08-2015 10-08-2015 Episodic Other liver diseases (15 sources) Alkaline phosphatase raised; Translations: [Abnormal levels of other serum enzymes] Onset: 05-14-2015 05-14-2015 Episodic Other nervous system disorders (8 sources) Impaired cognition; Translations: [Other symptoms and signs involving cognitive functions and awareness] Resolved: 01-25-2022 Episodic Other nervous system disorders (14 sources) Paresthesia; Translations: [Paresthesia of skin] Onset: 01-05-2019 02-08-2024 Episodic Other non-traumatic joint disorders (8 sources) Shoulder joint pain; Translations: [Pain in left shoulder] Resolved: 07-24-2020 Episodic Other nutritional; endocrine; and metabolic disorders (15 sources) Abnormal weight loss; Translations: [Abnormal weight loss] Onset: 08-07-2016 08-07-2016 Episodic Other upper respiratory disease (8 sources) Bleeding from nose; Translations: [Epistaxis] Resolved: 07-30-2021 Episodic Phlebitis; thrombophlebitis and thromboembolism (20 sources) Deep venous thrombosis of right lower extremity; Translations: [Acute embolism and thrombosis of unspecified deep veins of right lower extremity] Onset: 03-09-2013 05-14-2015 Episodic Residual codes; unclassified (15 sources) Family history of malignant neoplasm of [...] Test Name Value Interpretation Reference Range Facility CNOV 06-29-2024 CNOV Office Visit (NEEPFV ) -- CASSI RODRIGEZ ([id number]) 1950 F Date Time Provider Department 06/29/24 1:00 PM ALEJANDRO VILLAR NEEPFV During your visit today, we recorded the following information about you: Pulse Blood pressure Weight Height 85/minute 133/72 85.4 kg 1.575 m Alejandro Villar MD, PhD 07/03/2024 12:56 PM Signed [facility] Patient Name: Cassi Rodrigez Date of : 1950 ESTABLISHED EPILEPSY CLINIC NOTE 06/29/2024 1:00 PM Reason for Visit: Epilepsy Clinical Summary: Ms. Rodrigez is a 74 year old female seen in [facility]. Classification Summary HISTORY OF PRESENT ILLNESS Handedness: Age of onset: Seizure History and Evolution SEIZURE HISTORY: -Onset: Her initial seizure per and patient described as starting with a eugenie vu feeling followed by, eyes shut, and passing out. She would be unresponsive during this time. Started on Keppra w/o benefit and Zonegran added thereafter. Keppra and Zonegran are the only AEDs patient has been on with exception of Lyrica (for pain). She continues to have these though last was several years ago. Only has ever had 1 GTC in 2004 while in bed out of sleep; no clear triggers, unprovoked. Interval Seizure History 74 year old female with past medical history of depression, hypertension, SSS s/p PPM, pancreatic cancer, migraines, SHELL and medically intractable focal epilepsy, s/p right temporal lobectomy 08/16/2015 (pathology: MUSHTAQ / FCD) and s/p lumbar laminectomy in 07/2023. At [facility] in Dec 2023, ZNS was increased to 300mg qHS. No seizures since. Continues on Keppra 750mg BID, no side effects. Endorses she will be seeing a kidney specialist soon, BMP from April shows elevated creat (1.60) and a GFR of 32. She plans to see spine next week as a follow up from her surgery. CURRENT OUTPATIENT ANTISEIZURE MEDICATIONS (as of the start of the encounter) zonisamide (ZONEGRAN) 100 mg capsule (Taking) Take 3 capsules by mouth daily at bedtime. levETIRAcetam (KEPPRA) 750 mg tablet (Taking) Take 1 tablet by mouth two times a day. Prior Anti-seizure Therapies: Trial Adequacy: Max Daily Dose Achieved: Side Effects: Effectiveness: Comments: Gabapentin Levetiracetam Zonisamide Comorbidities: Episode Description: Patient Entered Data: EPILEPSY SCORE 12/22/2023 10:41 AM 12/22/2023 10:21 AM 09/08/2022 9:30 AM First answer obtained - 11/20/2019 11:07 PM PHQ-9 SCORE 13 [Moderate Depression] - 10 [Moderate Depression] - FANTA 2 SCORE 2 [Negative Anxiety Screen] - 3 [Positive Anxiety Screen] - FANTA 7 SCORE - - 8 [Mild Anxiety Disorder] - QOLIE-10 SCORE (0=worst; 100=best QoL - higher scores represent better function) 24 - 20 - LSSS SCORE (0- no seizures 100- most severe possible seizures) - - - - C-SSRS SCREEN - - - - On average, how many hours of sleep do you get in a 24-hour period? 10 - - - PROMIS Sleep Disturbance T-SCORE - 47 [within normal limits] - 54 [within normal limits] Have you been diagnosed with Sleep Apnea? 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 Developmental Delay Unanswered Family history of seizures Unanswered Febrile Seizure Unanswered Complications Unanswered Stroke No Traumatic Brain Injury Unanswered Previous Epilepsy Evaluations Date: 01 Nov 2018 Duration: 24 minutes Requested by: Alejandro Villar History synopsis 68 yo patient with past medical history of anxiety, chronic intractable migraines, asthma, obstructive sleep apnea, hypertension, irritable bowel syndrome, epilepsy, degenerative joint disease, depression, and right leg DVT.She has been seizure free since her right frontal lobectomy in August 2015 but she has been experiencing eugenie vu [place]. EEG ordered for follow up and possible seizure. Classification Abnormal III (Awake, Drowsy, 10-20 Scalp Electrodes, Anterior temporal electrodes, Standard electrodes) 1 Continuous Slow, Regional Right fronto-temporal 2 Asymmetry, Increased Beta Right fronto-temporal Impression This EEG is suggests cortical dysfunction and increased beta in the right fronto-temporal region consistent with the patient's history of a prior craniotomy and resection in this region. No clear epileptiform discharges or EEG seizures were seen during this recording. Contains abnormal data ALL BASIC METABOLIC PANEL Component Ref Range AND Units 1 mo ago SODIUM 136 - 145 mmol/L 140 POTASSIUM 3.5 - 5.1 mmol/L 4.4 CHLORIDE 98 - 107 mmol/L 108 High CARBON DIOXIDE 21.0 - 32.0 mmol/L 26.2 ANION GAP 10.2 GLUCOSE 74 - 106 mg/dL 103 BLOOD UREA NITROGEN 7.0 - 18.0 mg/dL 24.0 High CREATININE 0.55 - 1.02 mg/dL 1.60 High TBH EGFR-AF CHADIAN >=60 38 Low TBH EGFR-NON AF CHADIAN >=60 32 Low BUN CREATININE (more content not included)... Normal [facility] Comprehensive metabolic 2000 panelon 06-29-2024 Albumin [Mass/Vol] 4.3 g/dL 3.9 - 4.9 g/dL [facility] ALP [Catalytic activity/Vol] 170 U/L High 34 - 123 U/L [facility] ALT [Catalytic activity/Vol] 28 U/L 7 - 38 U/L [facility] Anion gap [Moles/Vol] 8 mmol/L 8 - 15 mmol/L [facility] AST [Catalytic activity/Vol] 22 U/L 13 - 35 U/L [facility] Bilirubin [Mass/Vol] 0.4 mg/dL 0.2 - 1 .3 mg/dL [facility] Calcium [Mass/Vol] 8.8 mg/dL 8.5 - 10. 2 mg/dL [facility] Chloride [Moles/Vol] 109 mmol/L High 98 - 10 7 mmol/L [facility] CO2 [Moles/Vol] 24 mmol/L 22 - 30 mmol/L [facility] Creatinine [Mass/Vol] 1.73 mg/dL High 0.58 - 0.96 mg/dL [facility] GFR/1.73 sq M.predicted among non-blacks MDRD (S/P/Bld) [Vol rate/Area] 31 mL/min/{1.73_m2} Low - PINF [facility] Comment on above: Estimated Glomerular Filtration Rate (eGFR) is calculated using the 2020 CKD-EPI creatinine equation. This equation utilizes serum creatinine, sex, and age as parameters. The creatinine assay has traceable calibration to isotope dilution-mass spectrometry. Refer to KDIGO guidelines for clinical interpretation. In patients with unstable renal function, e.g. those with acute kidney injury, the eGFR may not accurately reflect actual GFR. Glucose [Mass/Vol] 111 mg/dL High 74 - 99 mg/dL [facility] Comment on above: The [place] Diab[employer] s Association (ADA) provides guidance for cutoff values for fasting glucose and random glucose. The ADA defines fasting as no caloric intake for at least 8 hours. Fasting plasma glucose results between 100 to 125 mg/dL indicate increased risk for diabetes (prediabetes). Fasting plasma glucose results greater than or equal to 126 mg/dL meet the criteria for diagnosis of diabetes. In the absence of unequivocal hyperglycemia, results should be confirmed by repeat testing. In a patient with classic symptoms of hyperglycemia or hyperglycemic crisis, random plasma glucose results greater than or equal to 200 mg/dL meet the criteria for diagnosis of diabetes. Reference: Standards of Medical Care in Diabetes 2016, [place] [employer]. Diabetes Care. 2016.39(Suppl 1). Interpretation and review of laboratory results Abnormal [facility] Potassium [Moles/Vol] 5.1 mmol/L 3.7 - 5.1 mmol/L [facility] Protein [Mass/Vol] 7.0 g/dL 6.3 - 8.0 g/dL [facility] Sodium [Moles/Vol] 141 mmol/L 136 - 144 mmol/L [facility] Urea nitrogen [Mass/Vol] 34 mg/dL High 7 - 21 mg/dL [facility] Albumin [Mass/Vol] 4.3 g/dL Normal 3.9-4.9 [facility] Comment on above: Order Comment: Speci men Type: BLOOD SPECIMEN Ordering Facility: [facility] Address: [address] [place] [address] Performed By: #### [id number] #### [facility] CLIA [id number] [address] [place] [address] [place] ALP [Catalytic activity/Vol] 170 U/L High 34-123 [facility] Comment on above: Order Comment: Speci men Type: BLOOD SPECIMEN Ordering Facility: [facility] Address: [address] [place] [address] Performed By: #### [id number] #### [facility] CLIA [id number] [address] [place] [address] [place] ALT [Catalytic activity/Vol] 28 U/L Normal 7-38 [facility] Comment on above: Order Comment: Speci men Type: BLOOD SPECIMEN Ordering Facility: [facility] Address: [address] [place] [address] Performed By: #### 2 4323-8 #### [facility] CLIA [id number] [address] [place] [address] [place] Anion gap [Moles/Vol] 8 mmol/L Normal 8-15 [facility] Comment on above: Order Comment: Speci men Type: BLOOD SPECIMEN Ordering Facility: [facility] Address: [address] [place] [address] Performed By: #### 2 4323-8 #### [facility] CLIA [id number] [address] [place] [address] [place] AST [Catalytic activity/Vol] 22 U/L Normal 13-35 [facility] Comment on above: Order Comment: Speci men Type: BLOOD SPECIMEN Ordering Facility: [facility] Address: [address] [place] [address] Performed By: #### 2 4323-8 #### [facility] CLIA [id number] [address] [place] [address] [place] Bilirubin [Mass/Vol] 0.4 mg/dL Normal 0.2-1.3 [facility] Comment on above: Order Comment: Speci men Type: BLOOD SPECIMEN Ordering Facility: [facility] Address: [address] [place] [address] Performed By: #### 2 4323-8 #### [facility] CLIA [id number] [address] [place] [address] [place] Calcium [Mass/Vol] 8.8 mg/dL Normal 8.5-10.2 [facility] Comment on above: Order Comment: Speci men Type: BLOOD SPECIMEN Ordering Facility: [facility] Address: [address] [place] [address] Performed By: #### 2 4323-8 #### [facility] CLIA [id number] [address] [place] [address] [place] Chloride [Moles/Vol] 109 mmol/L High 98-107 [facility] Comment on above: Order Comment: Speci men Type: BLOOD SPECIMEN Ordering Facility: [facility] Address: [address] [place] [address] Performed By: #### 2 4323-8 #### [facility] CLIA [id number] [address] [place] [address] [place] CO2 [Moles/Vol] 24 mmol/L Normal 22-30 [facility] Comment on above: Order Comment: Speci men Type: BLOOD SPECIMEN Ordering Facility: [facility] Address: [address] [place] [address] Performed By: #### 2 4323-8 #### [facility] CLIA [id number] [address] [place] [address] [place] Creatinine [Mass/Vol] 1.73 mg/dL High 0.58-0.96 [facility] Comment on above: Order Comment: Warren almazan Type: BLOOD SPECIMEN Ordering Facility: [facility] Address: [address] [place] [address] Performed By: #### 2 4323-8 #### [facility] CLIA [id number] [address] [place] [address] [place] Creatinine and Glomerular filtration rate.predicted panel (S/P/Bld) 31 mL/min/1.73m??? Low >=60 [facility] Comment on above: Order Comment: Warren almazan Type: BLOOD SPECIMEN Ordering Facility: [facility] Address: [address] [place] [address] Result Comment: Radhika mated Glomerular Filtration Rate (eGFR) is calculated using the 2020 CKD-EPI creatinine equation. This equation utilizes serum creatinine, sex, and age as parameters. The creatinine assay has traceable calibration to isotope dilution-mass spectrometry. Refer to KDIGO guidelines for clinical interpretation. In patients with unstable renal function, e.g. those with acute kidney injury, the eGFR may not accurately reflect actual GFR. Performed By: #### 2 4323-8 #### [facility] CLIA [id number] [place] [address] [place] Glucose [Mass/Vol] 111 mg/dL High 74-99 [facility] Comment on above: Order Comment: Warren almazan Type: BLOOD SPECIMEN Ordering Facility: [facility] Address: [address] [place] [address] Result Comment: The [place] Diabetes Association (ADA) provides guidance for cutoff values for fasting glucose and random glucose. The ADA defines fasting as no caloric intake for at least 8 hours. Fasting plasma glucose results between 100 to 125 mg/dL indicate increased risk for diabetes (prediabetes). Fasting plasma glucose results greater than or equal to 126 mg/dL meet the criteria for diagnosis of diabetes. In the absence of unequivocal hyperglycemia, results should be confirmed by repeat testing. In a patient with classic symptoms of hyperglycemia or hyperglycemic crisis, random plasma glucose results greater than or equal to 200 mg/dL meet the criteria for diagnosis of diabetes. Reference: Standards of Medical Care in Diabetes 2016, [place] Diabetes Association. Diabetes Care. 2016.39(Suppl 1). Performed By: #### 2 4323-8 #### [facility] CLIA [id number] [address] [place] [address] [place] Potassium [Moles/Vol] 5.1 mmol/L Normal 3.7-5.1 [facility] Comment on above: Order Comment: Speci men Type: BLOOD SPECIMEN Ordering Facility: [facility] Address: [address] [place] [address] Performed By: #### 2 4323-8 #### [facility] CLIA [id number] [address] [place] [address] [place] Protein [Mass/Vol] 7.0 g/dL Normal 6.3-8.0 [facility] Comment on above: Order Comment: Speci men Type: BLOOD SPECIMEN Ordering Facility: [facility] Address: [address] [place] [address] Performed By: #### 2 4323-8 #### [facility] CLIA [id number] [address] [place] [address] [place] Sodium [Moles/Vol] 141 mmol/L Normal 136-144 [facility] Comment on above: Order Comment: Speci men Type: BLOOD SPECIMEN Ordering Facility: [facility] Address: [address] [place] [address] Performed By: #### 2 4323-8 #### [facility] CLIA [id number] [address] [place] [address] [place] Urea nitrogen [Mass/Vol] 34 mg/dL High 7-21 [facility] Comment on above: Order Comment: Speci men Type: BLOOD SPECIMEN Ordering Facility: [facility] Address: [address] [place] [address] Performed By: #### 2 4323-8 #### [facility] CLIA [id number] [address] [place] [address] [place] LEVETIRACETAMon 06-29-2024 levETIRAcetam [Mass/Vol] 59.9 ug/mL High 12.0 - 46.0 ug/mL [facility] Comment on above: This test is not alvin table for patients receiving treatment with the drug brivaracetam (Briviact). The drug causes an interference that may lead to falsely elevated levetiracetam results. Reference ranges and high/low indicator flags are provided as general guidelines only. The treating physician must determine appropriate target levels/dosing based on the specific clinical situation. This test was developed and its performance characteristics determined by [facility] Psychiatric Pathology [facility] Laboratory [facility] [place] ([facility]). It has not been cleared or approved by the FDA. [facility] is regulated under CLIA as qualified to perform high-complexity testing. This test is used for clinical purposes. It should not be regarded as investigational or for research. levETIRAcetam SerP-ncon 0 06-29-2024 levETIRAcetam [Mass/Vol] 59.9 ug/mL High 12.0-46.0 [facility] Comment on above: Order Comment: Speci men Type: BLOOD SPECIMEN Ordering Facility: [facility] Address: [address] [place] [address] Result Comment: This test is not suitable for patients receiving treatment with the drug brivaracetam (Briviact). The drug causes an interference that may lead to falsely elevated levetiracetam results. Reference ranges and high/low indicator flags are provided as general guidelines only. The treating physician must determine appropriate target levels/dosing based on the specific clinical situation. This test was developed and its performance characteristics determined by [facility]'s Psychiatric Pathology and Laboratory Medicine [place] ([facility]). It has not been cleared or approved by the FDA. [facility] is regulated under CLIA as qualified to perform high-complexity testing. This test is used for clinical purposes. It should not be regarded as investigational or for research. Performed By: #### 3 0471-7 #### [facility] CLIA [id number] [address] [place], [place] [address] [address] [place] levETIRAcetam [Mass/Vol]on 06-29-2024 Interpretation and review of laboratory results Abnormal [facility] INR in Platelet poor plasma by Coagulation assayon 06-05-2024 INR Coag (PPP) [Relative time] 2.29 {INR} [facility] Comment on above: DESIRED INR:2.0-3.0 CONDITIONS NOT LISTED BELOW2.5-3.5 FOR PROSTHETIC HEART VALVE REPLACEMENT2.5-3.5 RECURRENT THROMBOSIS Prothrombin time (PT)on 05-16 PT Coag (PPP) [Time] 22.4 s High 9.0-11.6 [facility] ISTAT XRay CREon 05-30-2024 ISTAT GFR 29.200 Normal [facility] Comment on above: Result Comment: PERF ORMED BY: [place] [address] PATHOLOGIST [employer] MACHINE OPERATOR LELE FALK M.D. Performed By: #### I SCRE #### [address] MR lumbar spine wo conon MR lumbar spine wo con [facility] [address] [place] [address] MRI Report Signed Patient: Cassi Rodrigez MR#: [id number] 8 : 1950 Acct:[id number] Age/Sex: 74 / F ADM Date: 05/30/24 Loc: Room: Type: [facility] Attending Dr: David Mcfadden PA-C Copies to: [...] Rico John M.D.05/30/2024 10:27 AM Dictation Location: [place] [address] Transcribed By: [facility] 05/30/24 1027 Dictated By: Rico John DO 05/30/24 1006 Signed By: 05/30/24 1027 Normal [facility] No Panel InformationOrdered By: David Mcfadden on 05-30-2024 Bedside Estimated GFR (eGFR) 29.200 [facility] Whole blood creatinine measu rementOrdered By: David Mcfadden on 05-30-2024 Creatinine [Mass/Vol] 1.8 mg/dL High 0.6-1.3 [facility] Comment on above: ER/ESD physician is notified/shown all ISTAT results.Critical values may be confirmed by laboratory testing ifdeemed necessary by ER attending doctor. Result Comment: ER/E SD physician is notified/shown all ISTAT results. Critical values may be confirmed by laboratory testing if deemed necessary by ER attending doctor. Performed By: #### I SCRE #### [address] CNOVon 05-23-2024 CNOV Office Visit (NEADFV ) -- CASSI RODRIGEZ ([id number]) 1950 F Date Time Provider Department 05/23/24 11:30 AM RANDA REILLY During your visit today, we recorded the following information about you: Pulse Blood pressure Weight Height 85/minute 133/72 85.7 kg 1.575 Randa Paez MD 05/23/2024 12:54 PM Signed BOTOX PROCEDURE NOTE Responsible practitioner performing the [...] Injection Sites Muscle Fixed Site/Fixed Dose Bilat Methods Examiner 20 U divided in 2 sites Procerus [...] Total Units wasted: 0 Randa Reilly MD [facility] [place] Tomasa Farfan RN 05/23/2024 11:55 AM Signed Patient name and confirmed. Patient states she would like to receive Botox treatment today. 2 vials of Botox A (100 units in each) reconstituted with 2.2 cc of normal saline in each vial. Botox drawn up into four, 1 cc syringes. Each syringe containing 50 units of Botox. Assisted by: Diann VARELA Botox, 2 vials: Lot # [id number] Exp Lot # [id number] Botox handed to Dr. Reilly to administer and verified order. 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 Problem List As Of Date 05/23/2024 Noted Resolved Pancreas cancer [C25.9] 01/29/2011 Ampullary [...] extremity [M79.609*03/13/2019 Left arm pain [M79.602] 10/24/2019 Visit Notes: >> Tomasa Farfan RN jennifer May 23, 2024 11:54 AM Status: Signed Patient name and confirmed. Patient states she would like to receive Botox treatment today. 2 vials of Botox A (100 units in each) reconstituted with 2.2 cc of nor (more content not included)... Normal [facility] INR in Platelet poor plasma by Coagulation assayon 05-15-2024 INR Coag (PPP) [Relative time] 2.71 {INR} [facility] Comment on above: DESIRED INR:2.0-3.0 CONDITIONS NOT LISTED BELOW2.5-3.5 FOR PROSTHETIC HEART VALVE REPLACEMENT2.5-3.5 RECURRENT THROMBOSIS Prothrombin time (PT)on PT Coag (PPP) [Time] 26.0 s High 9.0-11.6 [facility] Basophils Auto (Bld) [#/Vol] on 05-05-2024 Basophils (Bld) [#/Vol] 0.0 10 3/uL 0.0-0.1 [facility] Basophils/100 WBC Auto (Bld) on 05-05-2024 Basophils/100 WBC (Bld) 1.1 % 0.2-2.0 [facility] Eosinophils/100 WBC Auto (Bl d)on 05-05-2024 Eosinophils/100 WBC (Bld) 6.9 % 0.9-7.0 [facility] Erythrocyte distribution wid th Auto (RBC) [Ratio]on 05-05-2024 Erythrocyte distribution width (RBC) [Ratio] 13.3 % 11.0-15.0 [facility] Estimated glomerular filtrat ion rate (GFR) non- Americanon 05-05-2024 GFR/1.73 sq M.predicted among non-blacks MDRD (S/P/Bld) [Vol rate/Area] 32 mL/min/{1.73_m2} Low >=60 [facility] Hematocrit Auto (Bld) [Volum e fraction]on 05-05-2024 Hematocrit (Bld) [Volume fraction] 35.5 % Low 36.0-48.0 [facility] Hemoglobin [Mass/volume] in Bloodon 05-05-2024 Hemoglobin (Bld) [Mass/Vol] 11.1 g/dL Low 12.0-16.0 [facility] Laboratory - Chemistry and C hemistry - challengeon 05-05-2024 Calcium [Mass/Vol] 8.4 mg/dL Low 8.5-10.1 [facility] Chloride [Moles/Vol] 108 mmol/L High 98-107 [facility] CO2 [Moles/Vol] 26.2 mmol/L 21.0-32.0 [facility] Creatinine [Mass/Vol] 1.60 mg/dL High 0.55-1.02 [facility] GFR/1.73 sq M.predicted MDRD (S/P/Bld) [Vol rate/Area] 38 mL/min/{1.73_m2} Low >=60 [facility] Glucose [Mass/Vol] 103 mg/dL 74-106 [facility] Potassium [Moles/Vol] 4.4 mmol/L 3.5-5.1 [facility] Sodium [Moles/Vol] 140 mmol/L 136-145 [facility] Urea nitrogen [Mass/Vol] 24.0 mg/dL High 7.0-18.0 [facility] Urea nitrogen/Creatinine [Mass ratio] 15.0 mg/mg [facility] Laboratory - Hematology and Cell countson 05-05-2024 ESR (Bld) [Velocity] 45 mm/h High <=30 [facility] Immature granulocytes/100 WBC (Bld) 0.0 % 0.0-0.5 [facility] Leukocytes [#/volume] correc tanesha for nucleated erythrocytes in Blood by Automated counon 05-05-2024 WBC corrected for nucl RBC Auto (Bld) [#/Vol] 3.8 10 3/uL Low 4.0-11.0 [facility] Lymphocytes Auto (Bld) [#/Vo l]on 05-05-2024 Lymphocytes (Bld) [#/Vol] 1.0 10 3/uL Low 1.2-3.8 [facility] Lymphocytes/100 WBC Auto (Bl d)on 05-05-2024 Lymphocytes/100 WBC (Bld) 27.1 % 20.5-60.0 [facility] MCH Auto (RBC) [Entitic mass ]on 05-05-2024 MCH (RBC) [Entitic mass] 28.8 pg 26.7-34.0 [facility] MCHC Auto (RBC) [Mass/Vol]on 05-05-2024 MCHC (RBC) [Mass/Vol] 31.3 g/dL 29.9-35.2 [facility] MCV Auto (RBC) [Entitic vol] on 05-05-2024 MCV (RBC) [Entitic vol] 92.2 fL 81.0-99.0 [facility] Monocytes Auto (Bld) [#/Vol] on 05-05-2024 Monocytes (Bld) [#/Vol] 0.3 10 3/uL 0.3-0.8 [facility] Monocytes/100 WBC Auto (Bld) on 05-05-2024 Monocytes/100 WBC (Bld) 8.2 % 1.7-12.0 [facility] Neutrophils Auto (Bld) [#/Vo l]on 05-05-2024 Neutrophils (Bld) [#/Vol] 2.1 10 3/uL 1.4-6.5 [facility] Neutrophils/100 WBC Auto (Bl d)on 05-05-2024 Neutrophils/100 WBC (Bld) 56.7 % 43.0-75.0 [facility] No Panel Informationon 05-05 C-Reactive Protein, Quantitative <0.50 mg/dL <=0.50 [facility] Eosinophils # (Auto) 0.3 10 3/uL 0.0-0.7 [facility] Immature Granulocyte # (Auto) 0.00 10 3/uL 0.00-0.03 [facility] Platelet mean volume Auto (B ld) [Entitic vol]on 05-05-2024 Platelet mean volume (Bld) [Entitic vol] 9.4 fL Low 9.5-13.5 [facility] Platelets Auto (Bld) [#/Vol] on 05-05-2024 Platelets (Bld) [#/Vol] 217 10 3/uL 150-450 [facility] RBC Auto (Bld) [#/Vol]on RBC (Bld) [#/Vol] 3.85 10 6/uL Low 4.20-5.40 [facility] Serum or plasma anion gap de terminationon 05-05-2024 Anion gap [Moles/Vol] 10.2 mmol/L Fi [facility] MR lumbar spine wo/w conon 0 03-28-2024 MR lumbar spine wo/w con [address] [address] MRI Report Signed Patient: Cassi Rodrigez MR#: [id number] 8 : 1950 Acct:[id number] Age/Sex: 74 / F ADM Date: 03/28/24 Loc: MR Room: Type: REG CLI Attending Dr: Broderick Howard DO Copies to: [...] Arnel Simon M.D.03/28/2024 12:17 PM Dictation Location: [place] [address] Transcribed By: [facility] 03/28/24 1217 Dictated By: Arnel Simon II, MD 03/28/24 1209 Signed By: 03/28/24 1217 Normal [facility] No Panel Informationon 03-15 BLANK _ [facility] Implant Date 05/22/2015 [facility] Model 5076 [employer]SureFix Nov[employer] [facility] PACEMAKER REMOTE CHECKon AV Delay Adaptive Paced Minimum (ms) 180 ms [facility] AV Delay Adaptive Sensed Minimum (ms) 150 ms [facility] AV Delay Adaptive Status DISABLED [facility] Battery Voltage (volts) 2.92 V [facility] Godfrey RA Pacing Amplitude (volts) 1.5 V [facility] Godfrey RA Pacing Polarity BI [facility] Godfrey RA Pacing Pulse Width (ms) 0.4 ms [facility] Godfrey RA Sensing Amplitude (mvolts) 0.3 mV [facility] Godfrey RA Sensing Blanking Period (ms) 150 ms [facility] Godfrey RA Sensing Polarity BI [facility] Godfrey RA Sensing Refractory Period (ms) Auto [facility] Godfrey RV Pacing Amplitude (volts) 2 V [facility] Godfrey RV Pacing Polarity BI [facility] Godfrey RV Pacing Pulse Width (ms) 0.4 ms [facility] Godfrey RV Sensing Amplitude (mvolts) 0.9 mV [facility] Godfrey RV Sensing Blanking Period (ms) 200 ms [facility] Godfrey RV Sensing Polarity BI [facility] Hysteresis Rate (bpm) DISABLED [facility] Lead1 Mfg MDT [facility] Lead2 Mfg MDT [facility] Location RV [facility] Location RA [facility] Lower Rate (bpm) 60 {beats}/min [facility] Max Sensor Rate (bmp) 130 {beats}/min [facility] Model [id number] COBOS [facility] PM-Device Mfg MDT [facility] PM-Percent Pacing (A) 99.48 % [facility] PM-Percent Pacing (V) 0.27 % [facility] PM-PMT Intervention ENABLED [facility] PM-PVC Intervention ENABLED [facility] PM-Rate Modulation Acceleration Reaction 30 s [facility] PM-Rate Modulation ADL Rate (bpm) 100 {beats}/min [facility] PM-Rate Modulation Deceleration Exercise [facility] PM-Rate Modulation Threshold MediumLow [facility] RA Bipolar Impedance ohms 418 ohm [facility] RA Unipolar Impedance ohms 399 ohm [facility] RV Bipolar Impedance ohms 532 ohm [facility] RV Unipolar Impedance 494 ohm [facility] Serial Number [id number] [facility] Serial Number [id number] [facility] Serial Number [id number] [facility] Thresh RA Capture Amplitude (volts) 0.5 V [facility] Thresh RA Capture Duration (ms) 0.4 ms [facility] Thresh RA Sensing Amplitude (mvolts) 3.125 mV [facility] Thresh RV Capture Amplitude (volts) 0.875 V [facility] Thresh RV Capture Duration (ms) 0.4 ms [facility] Thresh RV Sensing Amplitude (mvolts) 11.875 mV [facility] Tracking Rate (bpm) 130 {beats}/min [facility] 03/15/2024 Formattin g of this note [...] CARDIAC DATA AND REPORT, Scanned Documents section. [facility] CNOVon 03-07-2024 CNOV Office Visit (NEADFV ) -- CASSI RODRIGEZ ([id number]) 1950 F Date Time Provider Department 03/07/24 9:00 AM RANDA REILLY [facility] During your visit today, we recorded the following information about you: Pulse Blood pressure Weight Height 85/minute 133/72 84.5 kg 1.575 m Randa Reilly MD 03/07/2024 1:16 PM Signed PROGRESS NOTE- [facility] DATE: March 07, 2024 Location: [facility] Participants: patient, and provider HPI: Here for [...] I spent at least 50% of the [id number] time in counseling, explanation of diagnosis, planning of further management, and answering all questions. Randa Reilly MD [facility] [place] Referring Provider: LAUREN OTERO [[id number]] Allergies As of Date: 03/07/2024 Noted Allergy [...] sleep apnea) [G47.33] Order(s):[facility] [[id number]] Order #: [id number]: 1 CONSULT TO SLEEP MEDICINE - ADULT [[id number]] Order #: [id number]: [id number] FUTURE CONSULT TO [facility] [[id number]] Order #: [id number]: 1 FUTURE Prescriptions as of 03/07/2024 - [...] Noted Resolve (more content not included)... Normal [facility] Albumin [Mass/volume] in Ser um or Plasmaon 03-03-2024 Albumin [Mass/Vol] 3.5 g/dL 2.9-4.4 [facility] Basophils Auto (Bld) [#/Vol] on 03-03-2024 Basophils (Bld) [#/Vol] 0.0 10 3/uL 0.0-0.1 [facility] Basophils/100 WBC Auto (Bld) on 03-03-2024 Basophils/100 WBC (Bld) 0.7 % 0.2-2.0 [facility] Eosinophils/100 WBC Auto (Bl d)on 03-03-2024 Eosinophils/100 WBC (Bld) 10.8 % High 0.9-7.0 [facility] Erythrocyte distribution wid th Auto (RBC) [Ratio]on 03-03-2024 Erythrocyte distribution width (RBC) [Ratio] 13.5 % 11.0-15.0 [facility] Estimated glomerular filtrat ion rate (GFR) non- Americanon 03-03-2024 GFR/1.73 sq M.predicted among non-blacks MDRD (S/P/Bld) [Vol rate/Area] 34 mL/min/{1.73_m2} Low >=60 [facility] Globulin Calc (S) [Mass/Vol] on 03-03-2024 Globulin (S) [Mass/Vol] 3.6 g/dL F [facility] Hematocrit Auto (Bld) [Volum e fraction]on 03-03-2024 Hematocrit (Bld) [Volume fraction] 38.8 % 36.0-48.0 [facility] Hemoglobin [Mass/volume] in Bloodon 03-03-2024 Hemoglobin (Bld) [Mass/Vol] 11.9 g/dL Low 12.0-16.0 [facility] IgA [Mass/volume] in Serum o r Plasmaon 03-03-2024 IgA [Mass/Vol] 265 mg/dL 64-422 [facility] IgG [Mass/volume] in Serum o r Plasmaon 03-03-2024 IgG [Mass/Vol] 911 mg/dL [phone] [facility] IgM [Mass/volume] in Serum o r Plasmaon 03-03-2024 IgM [Mass/Vol] 64 mg/dL 26-217 [facility] Immunoglobulin light chains. kappa.free [Mass/volume] in Serumon 03-03-2024 Immunoglobulin light chains.kappa.free (S) [Mass/Vol] 44.7 mg/L Abnormal 3.3-19.4 [facility] Immunoglobulin light chains. kappa.free/Immunoglobulin light chains.lambda.free [Yanelis 03-03-2024 Immunoglobulin light chains.kappa.free/Immun oglobulin light chains.lambda.free (S) [Mass ratio] 1.16 0.26-1.65 [facility] Comment on above: Performed at: [address] [id number] Director: Junaid Sawyer PhD, Phone: [phone] Immunoglobulin light chains. lambda.free [Mass/volume] in Serum or Plasmaon 03-03-2024 Immunoglobulin light chains.lambda.free [Mass/Vol] 38.7 mg/L Abnormal 5.7-26.3 [facility] Iron binding capacity [Mass/ volume] in Serum or Plasmaon 03-03-2024 Iron binding capacity [Mass/Vol] 338.0 ug/dL 250.0-450. 0 [facility] Iron saturation [Mass Fracti on] in Serum or Plasmaon 03-03-2024 Iron saturation [Mass fraction] 7.7 % [facility] Laboratory - Chemistry and C hemistry - challengeon 03-03-2024 Albumin [Mass/Vol] 3.3 g/dL Low 3.4-5.0 [facility] ALP [Catalytic activity/Vol] 155 U/L High 46-116 [facility] ALT [Catalytic activity/Vol] 21 U/L 14-59 [facility] AST [Catalytic activity/Vol] 25 U/L 15-37 [facility] Bilirubin [Mass/Vol] 0.4 mg/dL 0.2-1.0 [facility] Calcium [Mass/Vol] 9.0 mg/dL 8.5-10.1 [facility] Chloride [Moles/Vol] 106 mmol/L 98-107 [facility] CO2 [Moles/Vol] 21.4 mmol/L 21.0-32.0 [facility] Cobalamin (Vitamin B12) [Mass/Vol] 495.0 pg/mL 193.0-986. 0 [facility] Creatinine [Mass/Vol] 1.50 mg/dL High 0.55-1.02 [facility] Ferritin [Mass/Vol] 19.0 ng/mL 8.0-252.0 [facility] GFR/1.73 sq M.predicted MDRD (S/P/Bld) [Vol rate/Area] 41 mL/min/{1.73_m2} Low >=60 [facility] Glucose [Mass/Vol] 113 mg/dL High 74-106 [facility] Iron [Mass/Vol] 26.0 ug/dL Low 50.0-170.0 [facility] Potassium [Moles/Vol] 4.3 mmol/L 3.5-5.1 [facility] Protein [Mass/Vol] 6.9 g/dL 6.4-8.2 [facility] Sodium [Moles/Vol] 139 mmol/L 136-145 [facility] Urea nitrogen [Mass/Vol] 25.0 mg/dL High 7.0-18.0 [facility] Urea nitrogen/Creatinine [Mass ratio] 16.7 mg/mg [facility] Laboratory - Hematology and Cell countson 03-03-2024 Immature granulocytes/100 WBC (Bld) 0.0 % 0.0-0.5 [facility] Leukocytes [#/volume] correc tanesha for nucleated erythrocytes in Blood by Automated counon 03-03-2024 WBC corrected for nucl RBC Auto (Bld) [#/Vol] 2.8 10 3/uL Low 4.0-11.0 [facility] Lymphocytes Auto (Bld) [#/Vo l]on 03-03-2024 Lymphocytes (Bld) [#/Vol] 0.8 10 3/uL Low 1.2-3.8 [facility] Lymphocytes/100 WBC Auto (Bl d)on 03-03-2024 Lymphocytes/100 WBC (Bld) 27.6 % 20.5-60.0 [facility] MCH Auto (RBC) [Entitic mass ]on 03-03-2024 MCH (RBC) [Entitic mass] 28.8 pg 26.7-34.0 [facility] MCHC Auto (RBC) [Mass/Vol]on 03-03-2024 MCHC (RBC) [Mass/Vol] 30.7 g/dL 29.9-35.2 [facility] MCV Auto (RBC) [Entitic vol] on 03-03-2024 MCV (RBC) [Entitic vol] 93.9 fL 81.0-99.0 [facility] Monocytes Auto (Bld) [#/Vol] on 03-03-2024 Monocytes (Bld) [#/Vol] 0.3 10 3/uL 0.3-0.8 [facility] Monocytes/100 WBC Auto (Bld) on 03-03-2024 Monocytes/100 WBC (Bld) 9.7 % 1.7-12.0 [facility] Neutrophils Auto (Bld) [#/Vo l]on 03-03-2024 Neutrophils (Bld) [#/Vol] 1.4 10 3/uL 1.4-6.5 [facility] Neutrophils/100 WBC Auto (Bl d)on 03-03-2024 Neutrophils/100 WBC (Bld) 51.2 % 43.0-75.0 [facility] No Panel Informationon 03-03 Eosinophils # (Auto) 0.3 10 3/uL 0.0-0.7 [facility] Folate 9.50 ng/mL 8.60-58.90 [facility] Immature Granulocyte # (Auto) 0.00 10 3/uL 0.00-0.03 [facility] Protein Electrophoresis M-Miguel Not Observed g/dL Not Observed [facility] Protein Electrophoresis Note Comment . [facility] Comment on above: Protein electrophore sis scan will follow via computer,mail, or toddler caregiver delivery. Platelet mean volume Auto (B ld) [Entitic vol]on 03-03-2024 Platelet mean volume (Bld) [Entitic vol] 9.4 fL Low 9.5-13.5 [facility] Platelets Auto (Bld) [#/Vol] on 03-03-2024 Platelets (Bld) [#/Vol] 203 10 3/uL 150-450 [facility] Protein [Mass/volume] in Ser um or Plasmaon 03-03-2024 Protein [Mass/Vol] 6.2 g/dL 6.0-8.5 [facility] RBC Auto (Bld) [#/Vol]on RBC (Bld) [#/Vol] 4.13 10 6/uL Low 4.20-5.40 [facility] Serum globulin measurement ( mass/volume)on 03-03-2024 Globulin (S) [Mass/Vol] 2.7 g/dL 2.2-3.9 [facility] Serum or plasma albumin/glob ulin mass ratioon 03-03-2024 Albumin/Globulin [Mass ratio] 0.9 {ratio} [facility] Albumin/Globulin [Mass ratio] 1.3 {ratio} 0.7-1.7 [facility] Serum or plasma alpha 1 glob ulin measurement by electrophoresis (mass/volume)on 03-03-2024 Alpha 1 globulin Elph [Mass/Vol] 0.3 g/dL 0.0-0.4 [facility] Serum or plasma alpha 2 glob ulin measurement by electrophoresis (mass/volume)on 03-03-2024 Alpha 2 globulin Elph [Mass/Vol] 0.7 g/dL 0.4-1.0 [facility] Serum or plasma anion gap de terminationon 03-03-2024 Anion gap [Moles/Vol] 15.9 mmol/L Fi [facility] Serum or plasma beta globuli n measurement by electrophoresis (mass/volume)on 03-03-2024 Beta globulin Elph [Mass/Vol] 1.0 g/dL 0.7-1.3 [facility] Serum or plasma gamma globul in measurement by electrophoresis (mass/volume)on 03-03-2024 Gamma globulin Elph [Mass/Vol] 0.8 g/dL 0.4-1.8 [facility] Serum or plasma immunoelectr ophoresis interpretationon 03-03-2024 Interpretation IEP [Interp] Comment . [facility] Comment on above: No monoclonality det ected. Estimated glomerular filtrat ion rate (GFR) non- Americanon 02-10-2024 GFR/1.73 sq M.predicted among non-blacks MDRD (S/P/Bld) [Vol rate/Area] 27 mL/min/{1.73_m2} >=60 [facility] Globulin Calc (S) [Mass/Vol] on 02-10-2024 Globulin (S) [Mass/Vol] 3.7 g/dL [facility] Laboratory - Chemistry and C hemistry - challengeon 02-10-2024 Albumin [Mass/Vol] 3.3 g/dL 3.4-5.0 [facility] ALP [Catalytic activity/Vol] 174 U/L 46-116 [facility] ALT [Catalytic activity/Vol] 24 U/L 14-59 [facility] Amylase [Catalytic activity/Vol] 16 U/L 25-115 [facility] AST [Catalytic activity/Vol] 19 U/L 15-37 [facility] Bilirubin [Mass/Vol] 0.4 mg/dL 0.2-1.0 [facility] Calcium [Mass/Vol] 8.6 mg/dL 8.5-10.1 [facility] Chloride [Moles/Vol] 107 mmol/L 98-107 [facility] CO2 [Moles/Vol] 26.8 mmol/L 21.0-32.0 [facility] Creatinine [Mass/Vol] 1.81 mg/dL 0.55-1.02 [facility] GFR/1.73 sq M.predicted MDRD (S/P/Bld) [Vol rate/Area] 33 mL/min/{1.73_m2} >=60 [facility] Glucose [Mass/Vol] 85 mg/dL 74-106 [facility] Lipase [Catalytic activity/Vol] 13.0 U/L 16.0-77.0 [facility] Potassium [Moles/Vol] 4.6 mmol/L 3.5-5.1 [facility] Protein [Mass/Vol] 7.0 g/dL 6.4-8.2 [facility] Sodium [Moles/Vol] 143 mmol/L 136-145 [facility] Urea nitrogen [Mass/Vol] 25.0 mg/dL 7.0-18.0 [facility] Urea nitrogen/Creatinine [Mass ratio] 13.8 mg/mg [facility] Serum or plasma albumin/glob ulin mass ratioon 02-10-2024 Albumin/Globulin [Mass ratio] 0.9 {ratio} [facility] Serum or plasma anion gap de terminationon 02-10-2024 Anion gap [Moles/Vol] 13.8 mmol/L Fi [facility] Serum or plasma cancer antig en 19-9 measurement (units/volume)on 02-10-2024 Cancer Ag 19-9 Qn 13 [arb'U]/mL 0-35 [facility] Comment on above: [employer] El ectrochemiluminescence Immunoassay(ECLIA)Values obtained with different assay methods or kits cannotbe used interchangeably. Results cannot be interpreted asabsolute evidence of the presence or absence of malignantdisease.Performed at: [facility] [employer] [id number] Director: Junaid Sawyer PhD, Phone: [phone] OVon 12-23-2023 CNOV Office Visit (NEEPFV ) -- CASSI RODRIGEZ ([id number]) 1950 F Date Time Provider Department 12/23/23 9:00 AM ALEJANDRO VILLAR NEEPFV During your visit today, we recorded the following information about you: Temperature Pulse Blood pressure Weight 97.6 degrees 85/minute 133/72 86.6 kg Height 1.575 m Alejandro Villar MD, PhD 12/23/2023 1:37 PM Signed [facility] CHIEF COMPLAINT: Patient presents [...] There is no focal weakness. 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 Normal [facility] 09-13-2023 [facility] Telephone (CARDAV) -- CASSI RODRIGEZ ([id number]) 1950 F Date Time Provider Department 09/13/23 [...] Encounter Status:Closed by MIRIAN BELL on 09/13/23 [facility] CNOVon 09-08-2023 CNOV Office Visit (CARDAV ) -- CASSI RODRIGEZ ([id number]) 1950 F Date Time Provider Department 09/08/23 2:30 PM MIRIAN BELL During your visit today, we recorded the following information about you: Pulse Blood pressure Weight Height 62/minute 130/64 86.5 kg 1.575 m Mirian Bell APRN.CNP 09/08/2023 3:29 PM Signed [facility] [place] [facility] Department of Cardiovascular Medicine SECTION OF CARDIAC PACING and ELECTROPHYSIOLOGY OUTPATIENT VISIT DATE September 08, 2023 OUTPATIENT VISIT TYPE ESTABLISHED PRIMARY CARE PHYSICIAN: Broderick Howard (Zack) [address] [place] [address] CHIEF COMPLAINT: follow up device management HISTORY [...] right leg DVT (2012), seizure, SHELL, IBS, prison anticoagulation. Moderate functional capacity (active with ADL, [...] 68 8 (more content not included)... Normal [facility] [id number] 09-08-2023 ECG01 Ventricular Rate : 6 2 BPM Atrial Rate : 62 BPM P-R Interval : 194 ms QRS Duration : 76 ms Q-T Interval : 424 ms QTC Calculation(Bazett) : 430 ms Calculated P [place] : 57 degrees Calculated R [place] : 70 degrees Calculated T [place] : 76 degrees ATRIAL-PACED RHYTHM Confirmed by KALIN AGUILA MD ([id number]) on 09/12/2023 10:29:58 PM NAME : JACECASSI PID : [id number] : 1950 Gender : Female Race : ORD : Procedure Date : Sep 08 2023 15:00:29 Edit Date : Sep 12 2023 22:29:59 Diagnosis: ATRIAL-PACED RHYTHM Confirmed by KALIN AGUILA MD ([id number]) on 09/12/2023 10:29:58 PM Test Reason : Location : 192 : AVCRD Overread By : KALIN AGUILA MD Edited By : KALIN AGUILA MD Referred By : , Acquired by : , Normal [facility] ECG01 Ventricular Rate : 6 4 BPM Atrial Rate : 64 BPM P-R Interval : 200 ms QRS Duration : 80 ms Q-T Interval : 406 ms QTC Calculation(Bazett) : 418 ms Calculated P [place] : 94 degrees Calculated R [place] : 94 degrees Calculated T [place] : 83 degrees SUSPECT ARM LEAD REVERSAL, PLEASE REPEAT ATRIAL-PACED RHYTHM RIGHT AXIS LOW VOLTAGE QRS, CONSIDER PULMONARY DISEASE, PERICARDIAL EFFUSION, OR NORMAL VARIANT ABNORMAL ECG Confirmed by KALIN AGUILA MD ([id number]) on 09/12/2023 10:29:06 PM NAME : CASSI RODRIGEZ PID : [id number] : 1950 Gender : Female Race : ORD : Procedure Date : Sep 08 2023 14:58:41 Edit Date : Sep 12 2023 22:29:09 Diagnosis: SUSPECT ARM LEAD REVERSAL, PLEASE REPEAT ATRIAL-PACED RHYTHM RIGHT AXIS LOW VOLTAGE QRS, CONSIDER PULMONARY DISEASE, PERICARDIAL EFFUSION, OR NORMAL VARIANT ABNORMAL ECG Confirmed by KALIN AGUILA MD ([id number]) on 09/12/2023 10:29:06 PM Test Reason : Location : 192 : AVCRD Overread By : KALIN AGUILA MD Edited By : KALIN AGUILA MD Referred By : , Acquired by : , Normal [facility] No Panel Informationon 09-08 BLANK _ [facility] Implant Date 05/22/2015 [facility] Model 5076 CapSureFix Nov[employer] [facility] CHECKon AV Delay Adaptive Paced Minimum (ms) 180 ms [facility] AV Delay Adaptive Sensed Minimum (ms) 150 ms [facility] AV Delay Adaptive Status DISABLED [facility] Battery Voltage (volts) 2.94 [facility] Godfrey RA Pacing Amplitude (volts) 1.5 V [facility] Godfrey RA Pacing Polarity BI [facility] Godfrey RA Pacing Pulse Width (ms) 0.4 ms [facility] Godfrey RA Sensing Amplitude (mvolts) 0.3 mV [facility] Godfrey RA Sensing Blanking Period (ms) 150 ms [facility] Godfrey RA Sensing Polarity BI [facility] Godfrey RA Sensing Refractory Period (ms) Auto [facility] Godfrey RV Pacing Amplitude (volts) 2 V [facility] Godfrey RV Pacing Polarity BI [facility] Godfrey RV Pacing Pulse Width (ms) 0.4 ms [facility] Godfrey RV Sensing Amplitude (mvolts) 0.9 mV [facility] Godfrey RV Sensing Blanking Period (ms) 200 ms [facility] Godfrey RV Sensing Polarity BI [facility] Hysteresis Rate (bpm) DISABLED [facility] Lead1 Mfg T [facility] Lead2 Mfg ARIANNA [facility] Location RV [facility] Location RA [facility] Lower Rate (bpm) 60 {beats}/min [facility] Max Sensor Rate (bmp) 130 {beats}/min [facility] Model [id number] COBOS [facility] PM-Device Mfg ARIANNA [facility] PM-Percent Pacing (A) 99.4 % [facility] PM-Percent Pacing (V) 0.24 % [facility] PM-PMT Intervention ENABLED [facility] PM-PVC Intervention ENABLED [facility] PM-Rate Modulation Acceleration Reaction 30 s [facility] PM-Rate Modulation ADL Rate (bpm) 100 {beats}/min [facility] PM-Rate Modulation Deceleration Exercise [facility] PM-Rate Modulation Threshold MediumLow [facility] RA Bipolar Impedance ohms 456 ohm [facility] RA Unipolar Impedance ohms 418 ohm [facility] RV Bipolar Impedance ohms 551 ohm [facility] RV Unipolar Impedance 532 ohm [facility] Serial Number [id number] [facility] Serial Number [id number] [facility] Serial Number [id number] [facility] Thresh RA Capture Amplitude (volts) 0.5 V [facility] Thresh RA Capture Duration (ms) 0.4 ms [facility] Thresh RA Sensing Amplitude (mvolts) 1.5 mV [facility] Thresh RV Capture Amplitude (volts) 0.75 V [facility] Thresh RV Capture Duration (ms) 0.4 ms [facility] Thresh RV Sensing Amplitude (mvolts) 13.125 mV [facility] Tracking Rate (bpm) 130 {beats}/min [facility] Complete Blood Count Auto Di ffon 08-12-2023 Basophils (Bld) [#/Vol] 0.0 10*3/uL Normal 0.0-0.2 [facility] Comment on above: Order Comment: Reaso n for Exam Lumbar spondylosis;Postoperative wound infection Result Comment: PERF ORMED BY: [place] [address] PATHOLOGIST [employer] MACHINE OPERATOR LELE FALK M.D. Performed By: #### P T, PTT #### [facility] [address] [place] [address] [place] Basophils/100 WBC (Bld) 0.5 % Normal . [facility] Comment on above: Order Comment: Reaso n for Exam Lumbar spondylosis;Postoperative wound infection Performed By: #### P T, PTT #### [facility] [address] [place] [address] [place] Eosinophils (Bld) [#/Vol] 0.2 10*3/uL Normal 0.0-0.45 [facility] Comment on above: Order Comment: Reaso n for Exam Lumbar spondylosis;Postoperative wound infection Performed By: #### P T, PTT #### [facility] [address] [place] [address] [place] Eosinophils/100 WBC (Bld) 4.4 % Normal . [facility] Comment on above: Order Comment: Reaso n for Exam Lumbar spondylosis;Postoperative wound infection Performed By: #### P T, PTT #### [address] Erythrocyte distribution width (RBC) [Ratio] 13.3 % Normal 11.9-15.3 [facility] Comment on above: Order Comment: Reaso n for Exam Lumbar spondylosis;Postoperative wound infection Performed By: #### P T, PTT #### [address] Hematocrit (Bld) [Volume fraction] 28.8 % Low 34.0-46.4 [facility] Comment on above: Order Comment: Reaso n for Exam Lumbar spondylosis;Postoperative wound infection Performed By: #### P T, PTT #### [address] Hemoglobin (Bld) [Mass/Vol] 9.6 g/dL Low 11.8-15.4 [facility] Comment on above: Order Comment: Reaso n for Exam Lumbar spondylosis;Postoperative wound infection Performed By: #### P T, PTT #### [address] Lymphocytes (Bld) [#/Vol] 0.6 10*3/uL Low 1.00-4.8 [facility] Comment on above: Order Comment: Reaso n for Exam Lumbar spondylosis;Postoperative wound infection Performed By: #### P T, PTT #### [address] Lymphocytes/100 WBC (Bld) 14.8 % Normal . [facility] Comment on above: Order Comment: Reaso n for Exam Lumbar spondylosis;Postoperative wound infection Performed By: #### P T, PTT #### [address] MCH (RBC) [Entitic mass] 31.9 pg Normal 24.7-34.3 [facility] Comment on above: Order Comment: Reaso n for Exam Lumbar spondylosis;Postoperative wound infection Performed By: #### P T, PTT #### [address] [address] [place] MCV (RBC) [Entitic vol] 95.0 fL Normal 80-100 [facility] Comment on above: Order Comment: Reaso n for Exam Lumbar spondylosis;Postoperative wound infection Performed By: #### P T, PTT #### [address] Mean Corpuscular HGB Conc 33.5 g/dL Normal 32.0-35.0 [facility] Comment on above: Order Comment: Reaso n for Exam Lumbar spondylosis;Postoperative wound infection Performed By: #### P T, PTT #### [facility] [address] [place] [address] [place] Monocytes (Bld) [#/Vol] 0.3 10*3/uL Normal 0.0-0.8 [facility] Comment on above: Order Comment: Reaso n for Exam Lumbar spondylosis;Postoperative wound infection Performed By: #### P T, PTT #### [facility] [address] [place] [address] [place] Monocytes/100 WBC (Bld) 7.5 % Normal . [facility] Comment on above: Order Comment: Reaso n for Exam Lumbar spondylosis;Postoperative wound infection Performed By: #### P T, PTT #### [facility] [address] [place] [address] Neutrophils (Bld) [#/Vol] 3.1 10*3/uL Normal 1.8-7.7 [facility] Comment on above: Order Comment: Reaso n for Exam Lumbar spondylosis;Postoperative wound infection Performed By: #### P T, PTT #### [place] [address] [place] Neutrophils/100 WBC (Bld) 72.8 % Normal . [facility] Comment on above: Order Comment: Reaso n for Exam Lumbar spondylosis;Postoperative wound infection Performed By: #### P T, PTT #### [address] NRBC% 0.1 /100{WBC} Normal 0-0.5 [facility] Comment on above: Order Comment: Reaso n for Exam Lumbar spondylosis;Postoperative wound infection Performed By: #### P T, PTT #### [address] Platelet mean volume (Bld) [Entitic vol] 7.7 fL Normal 6.3-10.7 [facility] Comment on above: Order Comment: Reaso n for Exam Lumbar spondylosis;Postoperative wound infection Performed By: #### P T, PTT #### [address] Platelets (Bld) [#/Vol] 258 10*3/uL Normal 150-450 [facility] Comment on above: Order Comment: Reaso n for Exam Lumbar spondylosis;Postoperative wound infection Performed By: #### P T, PTT #### [address] RBC (Bld) [#/Vol] 3.03 10*6/uL Low 3.60-5.00 [facility] Comment on above: Order Comment: Reaso n for Exam Lumbar spondylosis;Postoperative wound infection Performed By: #### P T, PTT #### [address] WBC (Bld) [#/Vol] 4.3 10*3/uL Normal 3.8-11.6 [facility] Comment on above: Order Comment: Reaso n for Exam Lumbar spondylosis;Postoperative wound infection Performed By: #### P T, PTT #### [address] Partial Thromboplastin Timeo n 08-12-2023 aPTT [...] coagulation studies. Please contact the laboratory at [phone] for redraw instructions. PERFORMED BY: [place] [address] PATHOLOGIST [employer] D[employer]LL[employer] MACHINE OPERATOR LELE FALK M.D. Performed By: #### P T, PTT #### [place] [id number] [facility] Prothrombin Time INRon 08-12 INR Coag [...] Performed By: #### P T, PTT #### [address] PT Coag (PPP) [Time] 29.5 s [...] coagulation studies. Please contact the laboratory at [phone] for redraw instructions. Performed By: #### P T, PTT #### [address] Automated basophil %Ordered By: Niki Weeks on 08-05-2023 Basophils/100 WBC (Bld) 0.2 % Normal . [facility] Comment on above: Performed By: #### P T, PTT #### [address] Automated basophil countOrde red By: Niki Bladetina on 08-05-2023 Basophils (Bld) [#/Vol] 0.0 10*3/uL Normal 0.0-0.2 [facility] Comment on above: Result Comment: PERF ORMED BY: [place] [address] PATHOLOGIST [employer] MACHINE OPERATOR LELE FALK M.D. Performed By: #### P T, PTT #### [address] Automated blood monocyte cou ntOrdered By: Niki Blades on 08-05-2023 Monocytes (Bld) [#/Vol] 0.7 10*3/uL Normal 0.0-0.8 [facility] Comment on above: Performed By: #### P T, PTT #### [address] Automated eosinophil %Ordere d By: Niki Blades on 08-05-2023 Eosinophils/100 WBC (Bld) 1.7 % Normal . [facility] Comment on above: Performed By: #### P T, PTT #### [address] Automated eosinophil countOr dered By: Niki Blades on 08-05-2023 Eosinophils (Bld) [#/Vol] 0.1 10*3/uL Normal 0.0-0.45 [facility] Comment on above: Performed By: #### P T, PTT #### [address] Automated monocyte %Ordered By: Niki Blades on 08-05-2023 Monocytes/100 WBC (Bld) 9.2 % Normal . [facility] Comment on above: Performed By: #### P T, PTT #### [address] Automated neutrophil %Ordere d By: Niki Blades on 08-05-2023 Neutrophils/100 WBC (Bld) 77.1 % Normal . [facility] Comment on above: Performed By: #### P T, PTT #### [address] Basic Metabolic Panelon 09-2 Creatinine Clr Calc Pharmacy 38.09 Normal [facility] Comment on above: Result Comment: PERF ORMED BY: [place] [address] PATHOLOGIST [employer] MACHINE OPERATOR LELE FALK M.D. Performed By: #### P T, PTT #### [address] GFR/1.73 sq M.predicted MDRD (S/P/Bld) [Vol rate/Area] 38.727 mL/min/{1.73_m2} Normal [facility] Comment on above: Performed By: #### P T, PTT #### [address] Calcium [Mass/volume] in Ser um or PlasmaOrdered By: Niki Blades on 08-05-2023 Calcium [Mass/Vol] 8.1 mg/dL Low 8.6-10.3 [facility] Comment on above: Performed By: #### P T, PTT #### [address] Carbon dioxide, total [Moles /volume] in Serum or PlasmaOrdered By: Niki Blades on 08-05-2023 CO2 [Moles/Vol] 25.2 mmol/L Normal 21.0-31.0 [facility] Comment on above: Performed By: #### P T, PTT #### [address] Chloride [Moles/volume] in S akila or PlasmaOrdered By: Niki Blades on 08-05-2023 Chloride [Moles/Vol] 111 mmol/L High 98-107 [facility] Comment on above: Performed By: #### P T, PTT #### [address] Complete Blood Count Auto Di ffon 08-05-2023 Mean Corpuscular HGB Conc 33.5 g/dL Normal 32.0-35.0 [facility] Comment on above: Performed By: #### P T, PTT #### [place] [address] [place] NRBC% 0.4 /100{WBC} Normal 0-0.5 [facility] Comment on above: Performed By: #### P T, PTT #### [address] Creatinine [Mass/volume] in Serum or PlasmaOrdered By: Niki Blades on 08-05-2023 Creatinine [Mass/Vol] 1.43 mg/dL High 0.60-1.20 [facility] Comment on above: Performed By: #### P T, PTT #### [address] Erythrocyte distribution wid th [Ratio] by Automated countOrdered By: Niki Blades on 08-05-2023 Erythrocyte distribution width (RBC) [Ratio] 13.5 % Normal 11.9-15.3 [facility] Comment on above: Performed By: #### P T, PTT #### [address] Erythrocytes [#/volume] in B lood by Automated countOrdered By: Niki Blades on 08-05-2023 RBC (Bld) [#/Vol] 3.14 10*6/uL Low 3.60-5.00 [facility] Comment on above: Performed By: #### P T, PTT #### [address] Glucose [Mass/volume] in Ser um or PlasmaOrdered By: Niki Blades on 08-05-2023 Glucose [Mass/Vol] 121 mg/dL High 70-100 [facility] Comment on above: ADA recommended refe rence rangeRandom Glucose Reference Range is dependent on time and content of last meal. Glucose of more than 200 mg/dL in a nonstressed, ambulatory subject supports the diagnosis of Diabetes Mellitus. Result Comment: [place] om Glucose Reference Range is dependent on time and content of last meal. Glucose of more than 200 mg/dL in a nonstressed, ambulatory subject supports the diagnosis of Diabetes Mellitus. ADA recommended reference range Performed By: #### P T, PTT #### [address] Hematocrit [Volume Fraction] of Blood by Automated countOrdered By: Niki Blades on 08-05-2023 Hematocrit (Bld) [Volume fraction] 29.9 % Low 34.0-46.4 [facility] Comment on above: Performed By: #### P T, PTT #### [facility] [address] [place] [address] Hemoglobin [Mass/volume] in BloodOrdered By: Niki Blades on 08-05-2023 Hemoglobin (Bld) [Mass/Vol] 10.0 g/dL Low 11.8-15.4 [facility] Comment on above: Performed By: #### P T, PTT #### [facility] [address] [place] [address] Leukocytes [#/volume] correc tanesha for nucleated erythrocytes in Blood by Automated counOrdered By: Niki Blades on 08-05-2023 WBC corrected for nucl RBC Auto (Bld) [#/Vol] 7.3 10*3/uL 3.8-11.6 [facility] Leukocytes [#/volume] in Blo od by Automated countOrdered By: Niki Blades on 08-05-2023 WBC (Bld) [#/Vol] 7.3 10*3/uL Normal 3.8-11.6 [facility] Comment on above: Performed By: #### P T, PTT #### [facility] [address] [place] [address] Lymphocytes [#/volume] in Bl ood by Automated countOrdered By: Niki Blades on 08-05-2023 Lymphocytes (Bld) [#/Vol] 0.9 10*3/uL Low 1.00-4.8 [facility] Comment on above: Performed By: #### P T, PTT #### [facility] [address] [place] [address] Lymphocytes/100 leukocytes i n Blood by Automated countOrdered By: Niki Blades on 08-05-2023 Lymphocytes/100 WBC (Bld) 11.8 % Normal . [facility] Comment on above: Performed By: #### P T, PTT #### [facility] [address] [place] [address] MCH [Entitic mass] by Automa tanesha countOrdered By: Niki Blades on 08-05-2023 MCH (RBC) [Entitic mass] 31.9 pg Normal 24.7-34.3 [facility] Comment on above: Performed By: #### P T, PTT #### [facility] [address] [place] [address] MCHC Auto (RBC) [Mass/Vol]Or dered By: Niki Blades on 08-05-2023 MCHC (RBC) [Mass/Vol] 33.5 g/dL 32.0-35.0 [facility] MCV [Entitic volume] by Auto mated countOrdered By: Niki Blades on 08-05-2023 MCV (RBC) [Entitic vol] 95.1 fL Normal 80-100 [facility] Comment on above: Performed By: #### P T, PTT #### [facility] [address] [place] [address] Neutrophils [#/volume] in Bl ood by Automated countOrdered By: Niki Blades on 08-05-2023 Neutrophils (Bld) [#/Vol] 5.6 10*3/uL Normal 1.8-7.7 [facility] Comment on above: Performed By: #### P T, PTT #### [facility] [address] [place] [address] No Panel InformationOrdered By: Niki Rms on 08-05-2023 Estimated GFR (CKD-EPI) 38.727 mL/Min [facility] Creatinine Clearance (Chem 38.09 [facility] Nucleated erythrocytes [Pres ence] in Blood by Automated countOrdered By: Niki Blades on 08-05-2023 Nucleated RBC Auto Ql (Bld) 0.4 /100{WBC} 0-0.5 [facility] Platelet mean volume [Entiti c volume] in Blood by Automated countOrdered By: Niki Blades on 08-05-2023 Platelet mean volume (Bld) [Entitic vol] 7.6 fL Normal 6.3-10.7 [facility] Comment on above: Performed By: #### P T, PTT #### [facility] [address] [place] [address] [place] Platelets [#/volume] in Bloo d by Automated countOrdered By: Niki Blades on 08-05-2023 Platelets (Bld) [#/Vol] 147 10*3/uL Low 150-450 [facility] Comment on above: Performed By: #### P T, PTT #### [place] [address] [place] Potassium [Moles/volume] in Serum or PlasmaOrdered By: Niki Blades on 08-05-2023 Potassium [Moles/Vol] 4.4 mmol/L Normal 3.5-5.1 [facility] Comment on above: Performed By: #### P T, PTT #### [address] Serum or plasma anion gap de terminationOrdered By: Niki Blades on 08-05-2023 Anion gap [Moles/Vol] 7.2 mmol/L Normal 6.0-15.0 [facility] Comment on above: Performed By: #### P T, PTT #### [place] [address] [place] Sodium [Moles/volume] in Ser um or PlasmaOrdered By: Niki Blades on 08-05-2023 Sodium [Moles/Vol] 139 mmol/L Normal 136-145 [facility] Comment on above: Performed By: #### P T, PTT #### [place] [address] [place] Urea nitrogen [Mass/volume] in Serum or PlasmaOrdered By: Niki Blades on 08-05-2023 Urea nitrogen [Mass/Vol] 25 mg/dL Normal 7-25 [facility] Comment on above: Performed By: #### P T, PTT #### [place] [address] [place] Basic Metabolic Panelon 07-17 Anion gap [Moles/Vol] 7.9 mmol/L Normal 6.0-15.0 [facility] Comment on above: Performed By: #### B MP, CBC #### [address] Calcium [Mass/Vol] 7.4 mg/dL Low 8.6-10.3 [facility] Comment on above: Performed By: #### B MP, CBC #### [place] [address] [place] Chloride [Moles/Vol] 110 mmol/L High 98-107 [facility] Comment on above: Performed By: #### B MP, CBC #### [address] CO2 [Moles/Vol] 23.9 mmol/L Normal 21.0-31.0 [facility] Comment on above: Performed By: #### B MP, CBC #### [place] [address] [place] Creatinine [Mass/Vol] 1.48 mg/dL High 0.60-1.20 [facility] Comment on above: Performed By: #### B MP, CBC #### [place] [address] [place] Creatinine Clr Calc Pharmacy 34.66 Normal [facility] Comment on above: Result Comment: PERF ORMED BY: [place] [address] PATHOLOGIST [employer] OPERATOR LELE FALK M.D. Performed By: #### B MP, CBC #### [place] [address] [place] GFR/1.73 sq M.predicted MDRD (S/P/Bld) [Vol rate/Area] 37.163 mL/min/{1.73_m2} Normal [facility] Comment on above: Performed By: #### B MP, CBC #### [place] [address] [place] Glucose [Mass/Vol] 129 mg/dL High 70-100 [facility] Comment on above: Result Comment: [place] Glucose Reference Range is dependent on time and content of last meal. Glucose of more than 200 mg/dL in a nonstressed, ambulatory subject supports the diagnosis of Diabetes Mellitus. ADA recommended reference range Performed By: #### B MP, CBC #### [address] Potassium [Moles/Vol] 4.8 mmol/L Normal 3.5-5.1 [facility] Comment on above: Performed By: #### B MP, CBC #### [address] Sodium [Moles/Vol] 137 mmol/L Normal 136-145 [facility] Comment on above: Performed By: #### B MP, CBC #### [address] Urea nitrogen [Mass/Vol] 24 mg/dL Normal 7-25 [facility] Comment on above: Performed By: #### B MP, CBC #### [address] Complete Blood Count Auto Di ffon 08-04-2023 Basophils (Bld) [#/Vol] 0.0 10*3/uL Normal 0.0-0.2 [facility] Comment on above: Result Comment: PERF ORMED BY: [place] [address] PATHOLOGIST [employer] MACHINE OPERATOR LELE FALK M.D. Performed By: #### B MP, CBC #### [place] [address] [place] Basophils/100 WBC (Bld) 0.0 % Normal . [facility] Comment on above: Performed By: #### B MP, CBC #### [place] [address] [place] Eosinophils (Bld) [#/Vol] 0.0 10*3/uL Normal 0.0-0.45 [facility] Comment on above: Performed By: #### B MP, CBC #### [place] [address] [place] Eosinophils/100 WBC (Bld) 0.0 % Normal . [facility] Comment on above: Performed By: #### B MP, CBC #### [address] Erythrocyte distribution width (RBC) [Ratio] 13.6 % Normal 11.9-15.3 [facility] Comment on above: Performed By: #### B MP, CBC #### [address] Hematocrit (Bld) [Volume fraction] 31.5 % Low 34.0-46.4 [facility] Comment on above: Performed By: #### B MP, CBC #### [address] Hemoglobin (Bld) [Mass/Vol] 10.5 g/dL Low 11.8-15.4 [facility] Comment on above: Performed By: #### B MP, CBC #### [address] Lymphocytes (Bld) [#/Vol] 0.5 10*3/uL Low 1.00-4.8 [facility] Comment on above: Performed By: #### B MP, CBC #### [address] Lymphocytes/100 WBC (Bld) 4.4 % Normal . [facility] Comment on above: Performed By: #### B MP, CBC #### [address] MCH (RBC) [Entitic mass] 31.6 pg Normal 24.7-34.3 [facility] Comment on above: Performed By: #### B MP, CBC #### [address] MCV (RBC) [Entitic vol] 94.8 fL Normal 80-100 [facility] Comment on above: Performed By: #### B MP, CBC #### [address] Mean Corpuscular HGB Conc 33.3 g/dL Normal 32.0-35.0 [facility] Comment on above: Performed By: #### B MP, CBC #### [facility] [address] [place] [address] [place] Monocytes (Bld) [#/Vol] 0.5 10*3/uL Normal 0.0-0.8 [facility] Comment on above: Performed By: #### B MP, CBC #### [facility] [address] [place] [address] [place] Monocytes/100 WBC (Bld) 4.0 % Normal . [facility] Comment on above: Performed By: #### B MP, CBC #### [facility] [address] Neutrophils (Bld) [#/Vol] 10.4 10*3/uL High 1.8-7.7 [facility] Comment on above: Performed By: #### B MP, CBC #### [facility] [address] [place] [address] [place] Neutrophils/100 WBC (Bld) 91.6 % Normal . [facility] Comment on above: Performed By: #### B MP, CBC #### [facility] [address] [place] [address] [place] NRBC% 0.1 /100{WBC} Normal 0-0.5 [facility] Comment on above: Performed By: #### B MP, CBC #### [facility] [address] [place] [address] [place] Platelet mean volume (Bld) [Entitic vol] 7.8 fL Normal 6.3-10.7 [facility] Comment on above: Performed By: #### B MP, CBC #### [facility] [address] [place] [address] [place] Platelets (Bld) [#/Vol] 172 10*3/uL Normal 150-450 [facility] Comment on above: Performed By: #### B MP, CBC #### [facility] [address] [place] [address] [place] RBC (Bld) [#/Vol] 3.32 10*6/uL Low 3.60-5.00 [facility] Comment on above: Performed By: #### B MP, CBC #### [facility] [address] WBC (Bld) [#/Vol] 11.4 10*3/uL Normal 3.8-11.6 [facility] Comment on above: Performed By: #### B MP, CBC #### [facility] [address] ABO/Rh Retypeon 08-03-2023 ABO/RH Recheck Result Positive Normal [facility] Comment on above: Result Comment: PERF ORMED BY: [place] [address] PATHOLOGIST [employer] MACHINE OPERATOR LELE FALK M.D. Activated partial thrombopla stin time (aPTT) in platelet poor plasma by coagulation aOrdered By: Cj Gamboa on 08-03-2023 aPTT Coag (PPP) [Time] 44.3 s 25.1-36.5 [facility] Comment on above: A hematocrit value g reater than 55% may lead to inaccurate results in coagulation testing. Patients having hematocrit values >55% require a special collection tube for coagulation studies. Please contact the laboratory at [phone] for redraw instructions. INR in Platelet poor plasma by Coagulation assayOrdered By: Cj Gamboa on 08-03-2023 INR Coag (PPP) [Relative time] 2.1 {INR} Normal [facility] Comment on above: INR Therapeutic Rang [...] Performed By: #### P T, PTT #### [place] [id number] [facility] 08-03-2023 L ------ Specimen: [id number] Received: 08/03/23 Status: SHARON Regaladotruman Num: [id number] Spec Type: Surgical Subm Dr: Niki Weeks MD Tissues: A Gross Only (BACK FB) Procedures: Level 1 Gross Age/ Patient Sex Location Account Attending Physician Cassi Rodrigez 73/F 4N [id number] Niki Weeks MD SPEC NUM: [id number] RECD: 08/03/23 STATUS: SHARON RUSSO NUM: [id number] GRACIA: 08/03/23- SUBM DR: Niki Weeks MD ENTERED: 08/03/[address] [facility] DR: YANET TYPE: Surgical DEPT: S ORDERED: [...] is taken. Gross examination only. CPT Codes 01012 Gross Photo Specimen: [id number] Received: 08/03/23 Status: SHARON Russo Num: [id number] Spec Type: Surgical Subm Dr: Niki Weeks MD Tissues: A Gross Only (BACK FB) Procedures: Level 1 Gross Patient: Cassi Rodrigez [id number] (Continued) Signed (signature on file) Prashanth Wynn [...] coagulation studies. Please contact the laboratory at [phone] for redraw instructions. PERFORMED BY: [place] [address] PATHOLOGIST [employer] MACHINE OPERATOR LELE FALK M.D. Performed By: #### P T, PTT #### [address] Prothrombin time (PT)Ordered By: Cj Gamboa on 08-03-2023 PT Coag (PPP) [Time] 24.8 s High 9.0-12.9 [facility] Comment on above: A hematocrit value g reater than 55% may lead to inaccurate results in coagulation testing. Patients having hematocrit values >55% require a special collection tube for coagulation studies. Please contact the laboratory at [phone] for redraw instructions. Result Comment: A he matocrit value greater than 55% may lead to inaccurate results in coagulation testing. Patients having hematocrit values >55% require a special collection tube for coagulation studies. Please contact the laboratory at [phone] for redraw instructions. Performed By: #### P T, PTT #### [facility] [address] [place] [address] Type and Screenon 08-03-2023 ABO and Rh group Nom (Bld) Blood group A Rh(D) positive Normal [facility] XR lumbar spine 1Von 023 XR lumbar spine 1V [facility] [address] [place] [address] XRay Report Signed Patient: Cassi Rodrigez MR#: [id number] 8 : 1950 Acct:[id number] Age/Sex: 73 / F ADM Date: 08/03/23 Loc: ID Room: Type: [employer] Attending Dr: Niki Weeks MD Copies to: [...] Paris Phoenix M.D.08/03/2023 9:50 AM Dictation Location: [place] [address] Transcribed By: [facility] 08/03/23 0950 Dictated By: Paris Phoenix MD 08/03/23 0947 Signed By: 08/03/23 0950 Normal [facility] Automated basophil %Ordered By: Niki Weeks on 07-20-2023 Basophils/100 WBC (Bld) 0.6 % Normal . [facility] Comment on above: Performed By: #### C BC, BMP #### [facility] [address] [place], [place] [id number] [facility] Automated basophil countOrde red By: Niki Weeks on 07-20-2023 Basophils (Bld) [#/Vol] 0.0 10*3/uL Normal 0.0-0.2 [facility] Comment on above: Result Comment: PERF ORMED BY: [place] [address] PATHOLOGIST [employer] MACHINE OPERATOR LELE FALK M.D. Performed By: #### C BC, BMP #### [address] Automated blood monocyte cou ntOrdered By: Niki Blades on 07-20-2023 Monocytes (Bld) [#/Vol] 0.4 10*3/uL Normal 0.0-0.8 [facility] Comment on above: Performed By: #### C BC, BMP #### [address] Automated eosinophil %Ordere d By: Niki Blades on 07-20-2023 Eosinophils/100 WBC (Bld) 4.9 % Normal . [facility] Comment on above: Performed By: #### C BC, BMP #### [address] Automated eosinophil countOr dered By: Niki Blades on 07-20-2023 Eosinophils (Bld) [#/Vol] 0.3 10*3/uL Normal 0.0-0.45 [facility] Comment on above: Performed By: #### C BC, BMP #### [address] Automated monocyte %Ordered By: Niki Blades on 07-20-2023 Monocytes/100 WBC (Bld) 6.9 % Normal . [facility] Comment on above: Performed By: #### C BC, BMP #### [address] Automated neutrophil %Ordere d By: Niki Blades on 07-20-2023 Neutrophils/100 WBC (Bld) 73.8 % Normal . [facility] Comment on above: Performed By: #### C BC, BMP #### [address] Automated urine color determ inationOrdered By: Niki Blades on 07-20-2023 Color (U) Yellow Normal Yellow [facility] Comment on above: Order Comment: Name Collection Type:: Clean-Voided Midstream Performed By: #### U A #### [address] Basic Metabolic Panelon GFR/1.73 sq M.predicted MDRD (S/P/Bld) [Vol rate/Area] 35.992 mL/min/{1.73_m2} Normal [facility] Comment on above: Performed By: #### C BC, BMP #### [address] Bilirubin Test strip Ql (U)O rdered By: Niki Blades on 07-20-2023 Bilirubin Ql (U) Negative Negative [facility] Calcium [Mass/volume] in Ser um or PlasmaOrdered By: Niki Blades on 07-20-2023 Calcium [Mass/Vol] 8.6 mg/dL Normal 8.6-10.3 [facility] Comment on above: Result Comment: PERF ORMED BY: [place] [address] PATHOLOGIST [employer] MACHINE OPERATOR LELE FALK M.D. Performed By: #### C BC, BMP #### [address] Carbon dioxide, total [Moles /volume] in Serum or PlasmaOrdered By: Niki Blades on 07-20-2023 CO2 [Moles/Vol] 26.3 mmol/L Normal 21.0-31.0 [facility] Comment on above: Performed By: #### C BC, BMP #### [place] [address] [place] Chloride [Moles/volume] in S akila or PlasmaOrdered By: Niki Blades on 07-20-2023 Chloride [Moles/Vol] 109 mmol/L High 98-107 [facility] Comment on above: Performed By: #### C BC, BMP #### [address] Complete Blood Count Auto Di ffon 07-20-2023 Mean Corpuscular HGB Conc 33.0 g/dL Normal 32.0-35.0 [facility] Comment on above: Performed By: #### C BC, BMP #### [address] NRBC% 0.1 /100{WBC} Normal 0-0.5 [facility] Comment on above: Performed By: #### C BC, BMP #### [address] Creatinine [Mass/volume] in Serum or PlasmaOrdered By: Niki Weeks on 07-20-2023 Creatinine [Mass/Vol] 1.52 mg/dL High 0.60-1.20 [facility] Comment on above: Performed By: #### C BC, BMP #### [address] ECG 12 lead ECGon 07-20-2023 ECG 12 lead ECG [facility] [address] [place] [address] Electrocardiograph Report Signed Patient: Cassi Rodrigez MR#: [id number] 8 : 1950 Acct:[id number] Age/Sex: 73 / F ADM Date: 07/20/23 Loc: Room: Type: [facility] Attending Dr: Niki Weeks MD Ordering [...] ECG No previous ECGs available Confirmed by DELMY PAUL, NIKKI ([id number]) on 07/20/2023 11:22:45 AM Referred By: LEE WEEKS Electronically Signed By:NIKKI BROCK MD Transcribed By: MUS Signed By Nikki Brock MD 0 07/20/23 1122 Normal [facility] Erythrocyte distribution wid th [Ratio] by Automated countOrdered By: Niki Weeks on 07-20-2023 Erythrocyte distribution width (RBC) [Ratio] 13.5 % Normal 11.9-15.3 [facility] Comment on above: Performed By: #### C SUKUMAR, BMP #### [facility] [address] Erythrocytes [#/volume] in B lood by Automated countOrdered By: Niki Weeks on 07-20-2023 RBC (Bld) [#/Vol] 4.09 10*6/uL Normal 3.60-5.00 [facility] Comment on above: Performed By: #### C SUKUMAR, BMP #### [facility] [address] [place] [address] [place] Glucose [Mass/volume] in Ser um or PlasmaOrdered By: Niki Weeks on 07-20-2023 Glucose [Mass/Vol] 120 mg/dL High 70-100 [facility] Comment on above: ADA recommended refe rence rangeRandom Glucose Reference Range is dependent on time and content of last meal. Glucose of more than 200 mg/dL in a nonstressed, ambulatory subject supports the diagnosis of Diabetes Mellitus. Result Comment: [place] om Glucose Reference Range is dependent on time and content of last meal. Glucose of more than 200 mg/dL in a nonstressed, ambulatory subject supports the diagnosis of Diabetes Mellitus. ADA recommended reference range Performed By: #### C BC, BMP #### [facility] [address] [place] [id number] [place] Hematocrit [Volume Fraction] of Blood by Automated countOrdered By: Niki Weeks on 07-20-2023 Hematocrit (Bld) [Volume fraction] 38.3 % Normal 34.0-46.4 [facility] Comment on above: Performed By: #### C BC, BMP #### [facility] [address] [place] [id number] [place] Hemoglobin [Mass/volume] in BloodOrdered By: Niki Blades on 07-20-2023 Hemoglobin (Bld) [Mass/Vol] 12.6 g/dL Normal 11.8-15.4 [facility] Comment on above: Performed By: #### C SUKUMAR, BMP #### [facility] [address] Ketones Auto test strip (U) [Mass/Vol]Ordered By: Niki Blades on 07-20-2023 Ketones (U) [Mass/Vol] Negative Negative [facility] Leukocytes [#/volume] correc tanesha for nucleated erythrocytes in Blood by Automated counOrdered By: Niki Blades on 07-20-2023 WBC corrected for nucl RBC Auto (Bld) [#/Vol] 5.2 10*3/uL 3.8-11.6 [facility] Leukocytes [#/volume] in Blo od by Automated countOrdered By: Niki Blades on 07-20-2023 WBC (Bld) [#/Vol] 5.2 10*3/uL Normal 3.8-11.6 [facility] Comment on above: Performed By: #### C SUKUMAR, BMP #### [place] [address] [place] Lymphocytes [#/volume] in Bl ood by Automated countOrdered By: Niki Blades on 07-20-2023 Lymphocytes (Bld) [#/Vol] 0.7 10*3/uL Low 1.00-4.8 [facility] Comment on above: Performed By: #### C BC, BMP #### [facility] [address] [place] [address] [place] Lymphocytes/100 leukocytes i n Blood by Automated countOrdered By: Niki Blades on 07-20-2023 Lymphocytes/100 WBC (Bld) 13.8 % Normal . [facility] Comment on above: Performed By: #### C SUKUMAR, BMP #### [facility] [address] [place] [address] [place] MCH [Entitic mass] by Automa tanesha countOrdered By: Niki Blades on 07-20-2023 MCH (RBC) [Entitic mass] 30.9 pg Normal 24.7-34.3 [facility] Comment on above: Performed By: #### C SUKUMAR, BMP #### [facility] [address] [place] [address] MCHC Auto (RBC) [Mass/Vol]Or dered By: Niki Rms on 07-20-2023 MCHC (RBC) [Mass/Vol] 33.0 g/dL 32.0-35.0 [facility] MCV [Entitic volume] by Auto mated countOrdered By: Niki Weeks on 07-20-2023 MCV (RBC) [Entitic vol] 93.7 fL Normal 80-100 [facility] Comment on above: Performed By: #### C SUKUMAR, BMP #### [address] Neutrophils [#/volume] in Bl ood by Automated countOrdered By: Niki Weeks on 07-20-2023 Neutrophils (Bld) [#/Vol] 3.8 10*3/uL Normal 1.8-7.7 [facility] Comment on above: Performed By: #### C SUKUMAR, BMP #### [facility] [address] [place] [address] Nitrite Test strip Ql (U)Ord ered By: Niki Weeks on 07-20-2023 Nitrite Ql (U) Negative Negative [facility] No Panel InformationOrdered By: Niki Weeks on 07-20-2023 Estimated GFR (CKD-EPI) 35.992 mL/Min [facility] Creatinine Clearance (Chem N/A [facility] Nucleated erythrocytes [Pres ence] in Blood by Automated countOrdered By: Niki Weeks on 07-20-2023 Nucleated RBC Auto Ql (Bld) 0.1 /100{WBC} 0-0.5 [facility] Platelet mean volume [Entiti c volume] in Blood by Automated countOrdered By: Niki Weeks on 07-20-2023 Platelet mean volume (Bld) [Entitic vol] 7.2 fL Normal 6.3-10.7 [facility] Comment on above: Performed By: #### C SUKUMAR, BMP #### [facility] [address] [place] [address] [place] Platelets [#/volume] in Bloo d by Automated countOrdered By: Niki Blades on 07-20-2023 Platelets (Bld) [#/Vol] 194 10*3/uL Normal 150-450 [facility] Comment on above: Performed By: #### C SUKUMAR, BMP #### [address] Potassium [Moles/volume] in Serum or PlasmaOrdered By: Niki Blades on 07-20-2023 Potassium [Moles/Vol] 4.6 mmol/L Normal 3.5-5.1 [facility] Comment on above: Performed By: #### C SUKUMAR, BMP #### [address] Protein Auto test strip (U) [Mass/Vol]Ordered By: Niki Blades on 07-20-2023 Protein (U) [Mass/Vol] Negative Negative [facility] Serum or plasma anion gap de terminationOrdered By: Niki Blades on 07-20-2023 Anion gap [Moles/Vol] 9.3 mmol/L Normal 6.0-15.0 [facility] Comment on above: Performed By: #### C SUKUMAR, BMP #### [place] [address] [place] Sodium [Moles/volume] in Ser um or PlasmaOrdered By: Niki Blades on 07-20-2023 Sodium [Moles/Vol] 140 mmol/L Normal 136-145 [facility] Comment on above: Performed By: #### C SUKUMAR, BMP #### [place] [address] [place] Specific gravity Auto test s trip (U) [Rel density]Ordered By: Niki Blades on 07-20-2023 Specific gravity (U) [Rel density] 1.021 1.001-1.03 0 [facility] Urea nitrogen [Mass/volume] in Serum or PlasmaOrdered By: Niki Weeks on 07-20-2023 Urea nitrogen [Mass/Vol] 30 mg/dL High 7-25 [facility] Comment on above: Performed By: #### C BC, BMP #### [place] [address] [place] Urinalysison 07-20-2023 Appearance (U) Clear Normal Clear [facility] Comment on above: Order Comment: Name Collection Type:: Clean-Voided Midstream Performed By: #### U A #### [place] [address] [place] Bilirubin,Urine Negative Normal Negative [facility] Comment on above: Order Comment: Name Collection Type:: Clean-Voided Midstream Performed By: #### U A #### [place] [address] [place] Glucose Ql (U) Normal Normal Normal [facility] Comment on above: Order Comment: Name Collection Type:: Clean-Voided Midstream Performed By: #### U A #### [place] [address] [place] Ketones Ql (U) Negative Normal Negative [facility] Comment on above: Order Comment: Name Collection Type:: Clean-Voided Midstream Performed By: #### U A #### [place] [address] [place] Leukocyte esterase Test strip Ql (U) Negative Normal Negative [facility] Comment on above: Order Comment: Name Collection Type:: Clean-Voided Midstream Performed By: #### U A #### [place] [address] [place] Nitrite,Urine Negative Normal Negative [facility] Comment on above: Order Comment: Name Collection Type:: Clean-Voided Midstream Performed By: #### U A #### [place] [address] [place] Occult Blood,Urine Negative Normal Negative [facility] Comment on above: Order Comment: Name Collection Type:: Clean-Voided Midstream Result Comment: PERF ORMED BY: [place] [phone] PATHOLOGIST [employer] MACHINE OPERATOR LELE FALK M.D. Performed By: #### U A #### [address] Protein,Urine Negative Normal Negative [facility] Comment on above: Order Comment: Name Collection Type:: Clean-Voided Midstream Performed By: #### U A #### [address] Specificy [place],Urine 1.021 Normal 1.00 1-1.03 0 [facility] Comment on above: Order Comment: Name Collection Type:: Clean-Voided Midstream Performed By: #### U A #### [address] Urobilinogen,Urine Normal Normal Normal [facility] Comment on above: Order Comment: Name Collection Type:: Clean-Voided Midstream Performed By: #### U A #### [address] Urine clarity by refractomet ry automatedOrdered By: Niki Weeks on 07-20-2023 Clarity Refractometry automated (U) Clear Clear [facility] Urine glucose measurement by automated test strip (mass/volume)Ordered By: Niki Weeks on 07-20-2023 Glucose Auto test strip (U) [Mass/Vol] Normal mg/dL Normal [facility] Urine hemoglobin detection b y automated test stripOrdered By: Niki Weeks on 07-20-2023 Hemoglobin Auto test strip Ql (U) Negative Negative [facility] Urine leukocyte esterase det ection by automated test stripOrdered By: Niki Weeks on 07-20-2023 Leukocyte esterase Auto test strip Ql (U) Negative Negative [facility] Urine pH measurement by auto mated test stripOrdered By: Niki Weeks on 07-20-2023 pH (U) 5.5 [pH] Normal 5.0-9.0 [facility] Comment on above: Order Comment: Name Collection Type:: Clean-Voided Midstream Performed By: #### U A #### [place] [address] [place] Urobilinogen Auto test strip (U) [Mass/Vol]Ordered By: Niki Weeks on 07-20-2023 Urobilinogen (U) [Mass/Vol] Normal mg/dL Normal [facility] No Panel Informationon 06-16 BLANK _ [facility] Implant Date 05/22/2015 [facility] Model 5076 CapSureFix Nov[employer] [facility] PACEMAKER REMOTE CHECKon AV Delay Adaptive Paced Minimum (ms) 180 ms [facility] AV Delay Adaptive Sensed Minimum (ms) 150 ms [facility] AV Delay Adaptive Status DISABLED [facility] Battery Voltage (volts) 2.94 V [facility] Godfrey RA Pacing Amplitude (volts) 1.5 V [facility] Godfrey RA Pacing Polarity BI [facility] Godfrey RA Pacing Pulse Width (ms) 0.4 ms [facility] Godfrey RA Sensing Amplitude (mvolts) 0.3 mV [facility] Godfrey RA Sensing Blanking Period (ms) 150 ms [facility] Godfrey RA Sensing Polarity BI [facility] Godfrey RA Sensing Refractory Period (ms) Auto [facility] Godfrey RV Pacing Amplitude (volts) 2 V [facility] Godfrey RV Pacing Polarity BI [facility] Godfrey RV Pacing Pulse Width (ms) 0.4 ms [facility] Godfrey RV Sensing Amplitude (mvolts) 0.9 mV [facility] Godfrey RV Sensing Blanking Period (ms) 200 ms [facility] Godfrey RV Sensing Polarity BI [facility] Hysteresis Rate (bpm) DISABLED [facility] Lead1 Mfg T [facility] Lead2 Mfg ARIANNA [facility] Location RV [facility] Location RA [facility] Lower Rate (bpm) 60 {beats}/min [facility] Max Sensor Rate (bmp) 130 {beats}/min [facility] Model [id number] COBOS [facility] PM-Device Jorge KELLER [facility] PM-Percent Pacing (A) 99.76 % [facility] PM-Percent Pacing (V) 0.11 % [facility] PM-PMT Intervention ENABLED [facility] PM-PVC Intervention ENABLED [facility] PM-Rate Modulation Acceleration Reaction 30 s [facility] PM-Rate Modulation ADL Rate (bpm) 100 {beats}/min [facility] PM-Rate Modulation Deceleration Exercise [facility] PM-Rate Modulation Threshold MediumLow [facility] RA Bipolar Impedance ohms 437 ohm [facility] RA Unipolar Impedance ohms 399 ohm [facility] RV Bipolar Impedance ohms 532 ohm [facility] RV Unipolar Impedance 494 ohm [facility] Serial Number [id number] [facility] Serial Number [id number] [facility] Serial Number [id number] [facility] Thresh RA Capture Amplitude (volts) 0.5 V [facility] Thresh RA Capture Duration (ms) 0.4 ms [facility] Thresh RA Sensing Amplitude (mvolts) 2.25 mV [facility] Thresh RV Capture Amplitude (volts) 0.75 V [facility] Thresh RV Capture Duration (ms) 0.4 ms [facility] Thresh RV Sensing Amplitude (mvolts) 12.875 mV [facility] Tracking Rate (bpm) 130 {beats}/min [facility] Keegan 06-07-2023 JESSICA Telephone (CARDAV) -- CASSI RODRIGEZ ([id number]) 1950 F Date Time Provider Department 06/07/23 [...] Date Reviewed: 09/10/2022 Reviewed by: Lauren Otero APRN.ROLL SCALE MAN - Fully Assessed Reason for Visit: pacemaker [...] by SALO FREEDMAN RN on 06/07/23 Normal [facility] Creatinine (Bld) [Mass/Vol]O rdered By: Broderick Howard on 06-04-2023 Creatinine [Mass/Vol] 1.6 mg/dL 0.6-1.3 [facility] Comment on above: ER/ESD physician is notified/shown all ISTAT results.Critical values may be confirmed by laboratory testing ifdeemed necessary by ER attending doctor. XR pre/post mri xrayon 06-04 XR pre/post mri xray [facility] [address] MRI Report Signed Patient: Cassi Rodrigez MR#: [id number] 8 : 1950 Acct:[id number] Age/Sex: 73 / F ADM Date: 06/04/23 Loc: Room: Type: [facility] Attending Dr: Broderick Howard DO Copies to: Broderick Howard DO Ordering Provider: Broderick Howard DO Date of Service: 06/04/23 MR/MR lumbar spine wo/w con: M47.27 ([id number]) XR/XR pre/post mri xray: M47.27 MR lumbar [...] Arnel Simon M.D.06/04/2023 1:31 PM Dictation Location: [facility]-PC-13 Transcribed By: TONO 06/04/23 1331 Dictated By: Arnel Simon II, MD 06/04/23 1319 Signed By: 06/04/23 1331 Normal [facility] No Panel Informationon 02-24 BLANK _ [facility] Implant Date 05/22/2015 [facility] Model 5076 CapSure[employer] [facility] PACEMAKER REMOTE CHECKon AV Delay Adaptive Paced Minimum (ms) 180 ms [facility] AV Delay Adaptive Sensed Minimum (ms) 150 ms [facility] AV Delay Adaptive Status DISABLED [facility] Battery Voltage (volts) 2.95 V [facility] Godfrey RA Pacing Amplitude (volts) 1.5 V [facility] Godfrey RA Pacing Polarity BI [facility] Godfrey RA Pacing Pulse Width (ms) 0.4 ms [facility] Godfrey RA Sensing Amplitude (mvolts) 0.3 mV [facility] Godfrey RA Sensing Blanking Period (ms) 150 ms [facility] Godfrey RA Sensing Polarity BI [facility] Godfrey RA Sensing Refractory Period (ms) Auto [facility] Godfrey RV Pacing Amplitude (volts) 2 V [facility] Godfrey RV Pacing Polarity BI [facility] Godfrey RV Pacing Pulse Width (ms) 0.4 ms [facility] Godfrey RV Sensing Amplitude (mvolts) 0.9 mV [facility] Godfrey RV Sensing Blanking Period (ms) 200 ms [facility] Godfrey RV Sensing Polarity BI [facility] Hysteresis Rate (bpm) DISABLED [facility] Lead1 Jorge PAULT [facility] Lead2 Jorge KELLER [facility] Location RV [facility] Location RA [facility] Lower Rate (bpm) 60 {beats}/min [facility] Max Sensor Rate (bmp) 130 {beats}/min [facility] Model [id number] COBOS [facility] PM-Device Mfg MDT [facility] PM-Percent Pacing (A) 99.67 % [facility] PM-Percent Pacing (V) 0.2 % [facility] PM-PMT Intervention ENABLED [facility] PM-PVC Intervention ENABLED [facility] PM-Rate Modulation Acceleration Reaction 30 s [facility] PM-Rate Modulation ADL Rate (bpm) 100 {beats}/min [facility] PM-Rate Modulation Deceleration Exercise [facility] PM-Rate Modulation Threshold MediumLow [facility] RA Bipolar Impedance ohms 418 ohm [facility] RA Unipolar Impedance ohms 380 ohm [facility] RV Bipolar Impedance ohms 532 ohm [facility] RV Unipolar Impedance 494 ohm [facility] Serial Number [id number] [facility] Serial Number [id number] [facility] Serial Number [id number] [facility] Thresh RA Capture Amplitude (volts) 0.5 V [facility] Thresh RA Capture Duration (ms) 0.4 ms [facility] Thresh RA Sensing Amplitude (mvolts) 2.25 mV [facility] Thresh RV Capture Amplitude (volts) 0.875 V [facility] Thresh RV Capture Duration (ms) 0.4 ms [facility] Thresh RV Sensing Amplitude (mvolts) 12.875 mV [facility] Tracking Rate (bpm) 130 {beats}/min [facility] No Panel Informationon 11-26 BLANK _ [facility] Implant Date 05/22/2015 [facility] Model 5076 [employer] [facility] PACEMAKER REMOTE CHECKon AV Delay Adaptive Paced Minimum (ms) 180 ms [facility] AV Delay Adaptive Sensed Minimum (ms) 150 ms [facility] AV Delay Adaptive Status DISABLED [facility] Battery Voltage (volts) 2.96 V [facility] Godfrey RA Pacing Amplitude (volts) 1.5 V [facility] Ogdfrey RA Pacing Polarity BI [facility] Godfrey RA Pacing Pulse Width (ms) 0.4 ms [facility] Godfrey RA Sensing Amplitude (mvolts) 0.3 mV [facility] Godfrey RA Sensing Blanking Period (ms) 150 ms [facility] Godfrey RA Sensing Polarity BI [facility] Godfrey RA Sensing Refractory Period (ms) Auto [facility] Godfrey RV Pacing Amplitude (volts) 2 V [facility] Godfrey RV Pacing Polarity BI [facility] Godfrey RV Pacing Pulse Width (ms) 0.4 ms [facility] Godfrey RV Sensing Amplitude (mvolts) 0.9 mV [facility] Godfrey RV Sensing Blanking Period (ms) 200 ms [facility] Godfrey RV Sensing Polarity BI [facility] Hysteresis Rate (bpm) DISABLED [facility] Lead1 Mfg MDT [facility] Lead2 Mfg MDT [facility] Location RV [facility] Location RA [facility] Lower Rate (bpm) 60 {beats}/min [facility] Max Sensor Rate (bmp) 130 {beats}/min [facility] Model [id number] COBOS [facility] PM-Device lizet KELLER [facility] PM-Percent Pacing (A) 99.43 % [facility] PM-Percent Pacing (V) 0.17 % [facility] PM-PMT Intervention ENABLED [facility] PM-PVC Intervention ENABLED [facility] PM-Rate Modulation Acceleration Reaction 30 s [facility] PM-Rate Modulation ADL Rate (bpm) 100 {beats}/min [facility] PM-Rate Modulation Deceleration Exercise [facility] PM-Rate Modulation Threshold MediumLow [facility] RA Bipolar Impedance ohms 437 ohm [facility] RA Unipolar Impedance ohms 399 ohm [facility] RV Bipolar Impedance ohms 532 ohm [facility] RV Unipolar Impedance 494 ohm [facility] Serial Number [id number] [facility] Serial Number [id number] [facility] Serial Number [id number] [facility] Thresh RA Capture Amplitude (volts) 0.5 V [facility] Thresh RA Capture Duration (ms) 0.4 ms [facility] Thresh RA Sensing Amplitude (mvolts) 1.875 mV [facility] Thresh RV Capture Amplitude (volts) 0.75 V [facility] Thresh RV Capture Duration (ms) 0.4 ms [facility] Thresh RV Sensing Amplitude (mvolts) 11.75 mV [facility] Tracking Rate (bpm) 130 {beats}/min [facility] No Panel Informationon 08-26 BLANK _ [facility] Implant Date 05/22/2015 [facility] Model 5076 CapSure[employer] [facility] PACEMAKER REMOTE CHECKon AV Delay Adaptive Paced Minimum (ms) 180 ms [facility] AV Delay Adaptive Sensed Minimum (ms) 150 ms [facility] AV Delay Adaptive Status DISABLED [facility] Battery Voltage (volts) 2.96 V [facility] Godfrey RA Pacing Amplitude (volts) 1.5 V [facility] Godfrey RA Pacing Polarity BI [facility] Godfrey RA Pacing Pulse Width (ms) 0.4 ms [facility] Godfrey RA Sensing Amplitude (mvolts) 0.3 mV [facility] Godfrey RA Sensing Blanking Period (ms) 150 ms [facility] Godfrey RA Sensing Polarity BI [facility] Godfrey RA Sensing Refractory Period (ms) Auto [facility] Godfrey RV Pacing Amplitude (volts) 2 V [facility] Godfrey RV Pacing Polarity BI [facility] Godfrey RV Pacing Pulse Width (ms) 0.4 ms [facility] Godfrey RV Sensing Amplitude (mvolts) 0.9 mV [facility] Godfrey RV Sensing Blanking Period (ms) 200 ms [facility] Godfrey RV Sensing Polarity BI [facility] Hysteresis Rate (bpm) DISABLED [facility] Lead1 Mfg MDT [facility] Lead2 Mfg MDT [facility] Location RV [facility] Location RA [facility] Lower Rate (bpm) 60 {beats}/min [facility] Max Sensor Rate (bmp) 130 {beats}/min [facility] Model [id number] COBOS [facility] PM-Device Mfg MDGalo [facility] PM-Percent Pacing (A) 99.6 % [facility] PM-Percent Pacing (V) 0.24 % [facility] PM-PMT Intervention ENABLED [facility] PM-PVC Intervention ENABLED [facility] PM-Rate Modulation Acceleration Reaction 30 s [facility] PM-Rate Modulation ADL Rate (bpm) 100 {beats}/min [facility] PM-Rate Modulation Deceleration Exercise [facility] PM-Rate Modulation Threshold MediumLow [facility] RA Bipolar Impedance ohms 437 ohm [facility] RA Unipolar Impedance ohms 399 ohm [facility] RV Bipolar Impedance ohms 532 ohm [facility] RV Unipolar Impedance 494 ohm [facility] Serial Number [id number] [facility] Serial Number [id number] [facility] Serial Number [id number] [facility] Thresh RA Capture Amplitude (volts) 0.5 V [facility] Thresh RA Capture Duration (ms) 0.4 ms [facility] Thresh RA Sensing Amplitude (mvolts) 2.5 mV [facility] Thresh RV Capture Amplitude (volts) 0.75 V [facility] Thresh RV Capture Duration (ms) 0.4 ms [facility] Thresh RV Sensing Amplitude (mvolts) 12.125 mV [facility] Tracking Rate (bpm) 130 {beats}/min [facility] US KIDNEYS BLADDERon 022 US KIDNEYS BLADDER EXAMINATION: [facility] H[facility]ORY: Chronic kidney disease due to [...] Date: 2022-08-10 19:30 [address] [facility] UA RANDOM W/MICROSCOPICon BACTERIA NONE SEEN Normal NONE SEEN [facility] Comment on above: Performed By: #### U AMIC #### [facility] [address] [place] [address] Dr. Leah Felipe Bilirubin Ql (U) Negative Normal NEGATIVE [facility] Comment on above: Performed By: #### U AMIC #### [facility] [address] [place] [address] [address] Leah Felipe CAST NONE SEEN Normal NONE SEEN [facility] Comment on above: Performed By: #### U AMIC #### [facility] [address] [place] [address] [address] Leah Felipe Clarity (U) CLEAR Normal CLEAR [facility] Comment on above: Performed By: #### U AMIC #### [facility] [address] [place] [address] [address] Leah Felipe Color (U) LT. YELLOW Normal YELLOW [facility] Comment on above: Performed By: #### U AMIC #### [facility] [address] [place] [address] [address] Leah Felipe Crystals LM Nom (Urine sed) NONE SEEN Normal NONE SEEN [facility] Comment on above: Performed By: #### U AMIC #### [facility] [address] [address] [address] Leah Felipe Epithelial cells LM Ql (Urine sed) FEW Abnormal NONE SEEN /RARE [facility] Comment on above: Performed By: #### U AMIC #### [facility] [address] [place] [address] Dr. Leah Felipe Glucose Ql (U) Negative Normal NEGATIVE [facility] Comment on above: Performed By: #### U AMIC #### [facility] [address] [place] [address] Dr. Leah Felipe Hemoglobin Ql (U) Negative Normal NEGATIVE [facility] Comment on above: Performed By: #### U AMIC #### [facility] [address] [address] [address] Leah Felipe Ketones Ql (U) Negative Normal NEGATIVE [facility] Comment on above: Performed By: #### U AMIC #### [facility] [address] [place] [address] Dr. Leah Felipe LEUKOCYTES Negative Normal NEGATIVE [facility] Comment on above: Performed By: #### U AMIC #### [facility] [address] [place] [address] Dr. Leah Felipe MUCOUS NONE SEEN Normal NONE SEEN [facility] Comment on above: Performed By: #### U AMIC #### [facility] [address] [place] [address] Dr. Leah Felipe Nitrite Ql (U) Negative Normal NEGATIVE [facility] Comment on above: Performed By: #### U AMIC #### [facility] [address] [place] [address] Dr. Leah Felipe pH (U) 6.0 [pH] Normal 5-[address] [facility] Comment on above: Performed By: #### U AMIC #### [facility] [address] [address] [address] Leah Felipe RBC NONE SEEN Abnormal 0-[address] [facility] Comment on above: Performed By: #### U AMIC #### [facility] [address] [place] [address] Dr. Leah Felipe SPEC GRAVITY 1.025 Normal 1.005-<=1. [address] [facility] Comment on above: Performed By: #### U AMIC #### [facility] [address] [place] [address] Dr. Leah Felipe UA PROTEIN Negative Normal NEGATIVE/ TRACE [facility] Comment on above: Performed By: #### U AMIC #### [facility] [address] [place] [address] Dr. Leah Felipe Urobilinogen Qn (U) 0.2 {Lin'U}/dL Normal 0.2 - 1. 0 [facility] Comment on above: Performed By: #### U AMIC #### [facility] [address] [place] [address] Dr. Leah Felipe WBC 0-2 Abnormal NONE SEEN [facility] Comment on above: Performed By: #### U AMIC #### [facility] [address] [place] [address] Dr. Leah Felipe URINE T PROTEIN CREAT RATIOo n 08-03-2022 Protein (U) [Mass/Vol] 30.2 mg/dL Critically high <=12.0 [facility] Comment on above: Performed By: #### U RTPCR #### [facility] [address] [place] [address] Dr. Leah Felipe UR PROT CREAT RAT 0.19 Normal [facility] Comment on above: Performed By: #### U RTPCR #### [facility] [address] [place] [address] Dr. Leah Felipe URINE CREAT 159.67 mg/dL Normal 20.00-300. [address] [facility] Comment on above: Performed By: #### U RTPCR #### [facility] [address] [place] [address] Dr. Leah Felipe CBC AUTO DIFFon 07-31-2022 BASO # 0.0 103/ul Normal 0.0-0.1 [facility] Comment on above: Performed By: #### C BC #### [facility] [address] [place] [address] Dr. Leah Felipe Basophils/100 WBC (Bld) 0.6 % Normal 0.2-2.0 [facility] Comment on above: Performed By: #### C BC #### [facility] [address] [place] [address] Dr. Leah Felipe EO # 0.3 103/ul Normal 0.0-0.7 [facility] Comment on above: Performed By: #### C BC #### [facility] [address] [place] [address] Dr. Leah Felipe Eosinophils/100 WBC (Bld) 5.5 % Normal 0.9-7.0 [facility] Comment on above: Performed By: #### C BC #### [facility] [address] [place] [address] Dr. Leah Felipe Erythrocyte distribution width (RBC) [Ratio] 12.5 % Normal 11.0-15.0 [facility] Comment on above: Performed By: #### C BC #### [facility] [address] [place] [address] Dr. Leah Fleipe Hematocrit (Bld) [Volume fraction] 39.2 % Normal 36.0-48.0 [facility] Comment on above: Performed By: #### C BC #### [facility] [address] [place] [address] Dr. Leah Felipe Hemoglobin (Bld) [Mass/Vol] 12.5 g/dL Normal 12.0-16.0 [facility] Comment on above: Performed By: #### C BC #### [facility] [address] [place] [address] Dr. Leah Felipe IG # 0.01 10e3/ul Normal 0.00-0.03 [facility] Comment on above: Performed By: #### C BC #### [facility] [address] [place] [address] Dr. Leah Felipe IG % 0.2 % Normal 0.0-0.5 [facility] Comment on above: Performed By: #### C BC #### [facility] [address] [place] [address] Dr. Leah Felipe LYMPH # 0.8 103/ul Critically low 1.2-3.8 [facility] Comment on above: Performed By: #### C BC #### [facility] [address] [place] [address] Dr. Leah Felipe Lymphocytes/100 WBC (Bld) 16.0 % Critically low 20.5-60.0 [facility] Comment on above: Performed By: #### C BC #### [facility] [address] [place] [address] Dr. Leah Fleipe MANUAL DIFF REQ NO Normal [facility] Comment on above: Performed By: #### C BC #### [facility] [address] [place] [address] Dr. Leah Felipe MCH (RBC) [Entitic mass] 30.9 pg Normal 26.7-34.0 [facility] Comment on above: Performed By: #### C BC #### [facility] [address] [place] [address] Dr. Leah Felipe MCHC (RBC) [Mass/Vol] 31.9 g/dL Normal 29.9-35.2 [facility] Comment on above: Performed By: #### C BC #### [facility] [address] [place] [address] Dr. Leah Felipe MCV (RBC) [Entitic vol] 97.0 fL Normal 81.0-99.0 [facility] Comment on above: Performed By: #### C BC #### [facility] [address] [place] [address] Dr. Leah Felipe MONO # 0.4 103/ul Normal 0.3-0.8 [facility] Comment on above: Performed By: #### C BC #### [facility] [address] [place] [address] Dr. Leah Felipe Monocytes/100 WBC (Bld) 8.7 % Normal 1.7-12.0 [facility] Comment on above: Performed By: #### C BC #### [facility] [address] [place] [address] Dr. Leah Felipe NEUT # 3.4 103/ul Normal 1.4-6.5 [facility] Comment on above: Performed By: #### C BC #### [facility] [address] [place] [address] Dr. Leah Felipe Neutrophils/100 WBC (Bld) 69.0 % Normal 43.0-75.0 [facility] Comment on above: Performed By: #### C BC #### [facility] [address] [place] [address] Dr. Leah Felipe Platelet mean volume (Bld) [Entitic vol] 9.1 fL Critically low 9.5-13.5 [facility] Comment on above: Performed By: #### C BC #### [facility] [address] [place] [address] Dr. Leah Felipe PLT 196 103/ul Normal 150-450 [facility] Comment on above: Performed By: #### C BC #### [facility] [address] [place] [address] Dr. Leah Felipe RBC 4.04 106/ul Critically low 4.20-5.40 [facility] Comment on above: Performed By: #### C BC #### [facility] [address] [place] [address] Dr. Leah Felipe WBC 5.0 103/ul Normal 4.0-11.0 [facility] Comment on above: Performed By: #### C BC #### [facility] [address] [place] [address] Dr. Leah Felipe PROF CHEM 8 (BAS METB)on Anion gap [Moles/Vol] 9.8 mmol/L Normal [facility] Comment on above: Performed By: #### B MP, TSH #### [facility] [address] [address] [address] Leah Felipe Calcium [Mass/Vol] 8.2 mg/dL Critically low 8.5-10.1 [facility] Comment on above: Performed By: #### B MP, TSH #### [facility] [address] [place] [address] Dr. Leah Felipe Chloride [Moles/Vol] 107 mmol/L Normal 98-107 [facility] Comment on above: Performed By: #### B MP, TSH #### [facility] [address] [place] [address] Dr. Leah Felipe CO2 [Moles/Vol] 26.4 mmol/L Normal 21.0-32.0 [facility] Comment on above: Performed By: #### B MP, TSH #### [facility] [address] [place] [address] Dr. Leah Felipe Creatinine [Mass/Vol] 1.53 mg/dL Critically high 0.55-1.02 [facility] Comment on above: Performed By: #### B MP, TSH #### [facility] [address] [place] [address] Dr. Leah Felipe EGFR-AF CHADIAN 40 mL/min/1.73m2 Critically low >=60 [facility] Comment on above: Performed By: #### B MP, TSH #### [facility] [address] [place] [address] Dr. Leah Felipe EGFR-NON AF CHADIAN 33 mL/min/1.73m2 Critically low >=60 [facility] Comment on above: Performed By: #### B MP, TSH #### [facility] [address] [place] [address] Dr. Leah Felipe Glucose [Mass/Vol] 108 mg/dL Critically high 74-106 [facility] Comment on above: Performed By: #### B MP, TSH #### [facility] [address] [place] [address] Dr. Leah Felipe Potassium [Moles/Vol] 4.2 mmol/L Normal 3.5-5.1 [facility] Comment on above: Performed By: #### B MP, TSH #### [facility] [address] [address] [address] Leah Felipe Sodium [Moles/Vol] 139 mmol/L Normal 136-145 [facility] Comment on above: Performed By: #### B MP, TSH #### [facility] [address] [address] [address] Leah Felipe Urea nitrogen [Mass/Vol] 26.0 mg/dL Critically high 7.0-18.0 [facility] Comment on above: Performed By: #### B MP, TSH #### [facility] [address] [address] [address] Leah Felipe Urea nitrogen/Creatinine [Mass ratio] 17.0 mg/mg Normal [facility] Comment on above: Performed By: #### B MP, TSH #### [facility] [address] [place] [address] Dr. Leah Felipe TSHon 07-31-2022 TSH 1.650 uIU/mL Normal 0.358-3.74 0 [facility] Comment on above: Performed By: #### B MP, TSH #### [facility] [address] [place] [address] Dr. Leah Felipe VITAMIN B12on 07-31-2022 Cobalamin (Vitamin B12) [Mass/Vol] 378.0 pg/mL Normal 193.0-986. 0 [facility] Comment on above: Performed By: #### V ITB12 #### [facility] [address] [place] [address] Dr. Leah Felipe MG MAMM SCREEN 3D FAVIOLA CADon 07-29-2022 MG MAMM SCREEN 3D FAVIOLA CAD Patient: CASSI RODRIGEZ Exam Date: 07/29/2022 : 1950 Gender:F Ordering : DR BRODERICK HOWARD D.O. Admission #: [id number] Family : Order #: [id number] CLICK HERE TO VIEW EXAM RADIOLOGY REPORT [...] at age 64. LOCATION: [facility] BREAST COMPOSITION: Heterogeneously dense,which may obscure [...] 07/29/2022 at 11:19 Normal [facility] CBC panel Auto (Bld)on 07-23 Erythrocyte distribution width (RBC) [Ratio] 12.5 % Normal 11.5-15.0 [facility] Comment on above: Order Comment: Warren almazan Type: BLOOD SPECIMEN Ordering Facility: [facility] Address: [address] [address] Performed By: #### 5 8410-2 #### [facility] CLIA [id number] [place] [address] [place] Hematocrit (Bld) [Volume fraction] 39.3 % Normal 36.0-46.0 [facility] Comment on above: Order Comment: Warren almazan Type: BLOOD SPECIMEN Ordering Facility: [facility] Address: [address] [address] Performed By: #### 5 8410-2 #### [facility] CLIA [id number] [address] [place] [address] [place] Hemoglobin (Bld) [Mass/Vol] 12.5 g/dL Normal 11.5-15.5 [facility] Comment on above: Order Comment: Warren almazan Type: BLOOD SPECIMEN Ordering Facility: [facility] Address: [address] Performed By: #### 5 8410-2 #### [facility] [place] [id number] STATES OF [facility] MCH (RBC) [Entitic mass] 31.3 pg Normal 26.0-34.0 [facility] Comment on above: Order Comment: Speci men Type: BLOOD SPECIMEN Ordering Facility: [facility] Address: [address] [place], [place] [address] Performed By: #### 5 8410-2 #### [facility] [place] [id number] [place] MCHC (RBC) [Mass/Vol] 31.8 g/dL Normal 30.5-36.0 [facility] Comment on above: Order Comment: Speci men Type: BLOOD SPECIMEN Ordering Facility: [facility] Address: [address] [place] [address] Performed By: #### 5 8410-2 #### [facility] [place] [id number] [place] MCV (RBC) [Entitic vol] 98.5 fL Normal 80.0-100.0 [facility] Comment on above: Order Comment: Speci men Type: BLOOD SPECIMEN Ordering Facility: [facility] Address: [address] [place] [address] Performed By: #### 5 8410-2 #### [facility] [place] [id number] OF [place] Nucleated RBC (Bld) [#/Vol] 10*3/uL Normal <0.01 [facility] Comment on above: Order Comment: Speci men Type: BLOOD SPECIMEN Ordering Facility: [facility] Address: [address] [place], [place] [address] Performed By: #### 5 8410-2 #### [facility] [place] [id number] [place] Platelet mean volume (Bld) [Entitic vol] 9.5 fL Normal 9.0-12.7 [facility] Comment on above: Order Comment: Speci men Type: BLOOD SPECIMEN Ordering Facility: [facility] Address: [address] Performed By: #### 5 8410-2 #### [facility] CLIA [id number] [facility] [place] [address] [place] Platelets (Bld) [#/Vol] 214 10*3/uL Normal 150-400 [facility] Comment on above: Order Comment: Speci men Type: BLOOD SPECIMEN Ordering Facility: [facility] Address: [address] [place], [place] [address] Performed By: #### 5 8410-2 #### [facility] [place] [id number] [address] [place] [address] [place] RBC (Bld) [#/Vol] 3.99 10*6/uL Normal 3.90-5.20 [facility] Comment on above: Order Comment: Speci men Type: BLOOD SPECIMEN Ordering Facility: [facility] Address: [address] [place], [place] [address] Performed By: #### 5 8410-2 #### [facility] [place] [id number] [place] WBC (Bld) [#/Vol] 5.85 10*3/uL Normal 3.70-11.00 [facility] Comment on above: Order Comment: Speci men Type: BLOOD SPECIMEN Ordering Facility: [facility] Address: [address] [place], [place] [address] Performed By: #### 5 8410-2 #### [facility] CLIA [id number] [address] [place] [address] [place] Erythrocyte distribution width (RBC) [Ratio] 12.5 % 11.5 - 15.0 % [facility] Hematocrit (Bld) [Volume fraction] 39.3 % 36.0 - 46.0 % [facility] Hemoglobin (Bld) [Mass/Vol] 12.5 g/dL 11.5 - 15.5 g/dL [facility] MCH (RBC) [Entitic mass] 31.3 pg 26.0 - 34.0 pg [facility] MCHC (RBC) [Mass/Vol] 31.8 g/dL 30.5 - 36.0 g/dL [facility] MCV (RBC) [Entitic vol] 98.5 fL 80.0 - 100.0 fL [facility] Nucleated RBC (Bld) [#/Vol] <0.01 k/uL [facility] Platelet mean volume (Bld) [Entitic vol] 9.5 fL 9.0 - 12.7 fL [facility] Platelets (Bld) [#/Vol] 214 10*3/uL 150 - 400 k/uL [facility] RBC (Bld) [#/Vol] 3.99 10*6/uL 3.90 - 5.20 m/uL [facility] WBC (Bld) [#/Vol] 5.85 10*3/uL 3.70 - 11.00 k/uL [facility] TSH BLDon 07-23-2022 TSH Qn 1.890 m[IU]/L 0.270 - 4.200 mIU/L [facility] TSH SerPl-aCncon 07-23-2022 TSH Qn 1.890 m[IU]/L Normal 0.270-4.20 0 [facility] Comment on above: Order Comment: Speci men Type: BLOOD SPECIMEN Ordering Facility: [facility] Address: [address] [place], [place] [address] Performed By: #### 3 016-3 #### [facility] CLIA [id number] [facility] [place] [address] [place] [facility] Vital Signs Date Time Vital Sign Value Performing Clinician Facility 06-29-2024 13:05-0400 Body height 157.5 cm Alejandro Villar MD, PhD Work Phone: [facility] 06-29-2024 13:05-0400 Body mass index (BMI) [Ratio] 34.44 kg/m2 Alejandro Villar MD, PhD Work Phone: [facility] 06-29-2024 13:05-0400 Body weight 85.4 kg Alejandro Villar MD, PhD Work Phone: [facility] 06-29-2024 13:05-0400 Diastolic blood pressure 72 mm[Hg] Alejandro Villar MD, PhD Work Phone: [facility] 06-29-2024 13:05-0400 Heart rate 85 /min Alejandro Villar MD, PhD Work Phone: [facility] 06-29-2024 13:05-0400 Systolic blood pressure 133 mm[Hg] Alejandro Villar MD, PhD Work Phone: [facility] 06-27-2024 14:01-0400 Body height 157.48 cm DO Broderick Ball Work Phone: [facility] 06-27-2024 14:01-0400 Body mass index (BMI) [Ratio] 34.2 kg/m2 DO Broderick Ball Work Phone: [facility] 06-27-2024 14:01-0400 Body weight 84.82 kg DO Broderick Ball Work Phone: [facility] 06-27-2024 14:01-0400 Diastolic blood pressure 74 mm[Hg] DO Broderick Ball Work Phone: [facility] 06-27-2024 14:01-0400 Heart rate 68 /min DO Broderick Ball Work Phone: [facility] 06-27-2024 14:01-0400 Respiratory rate 12 /min DO Broderick Ball Work Phone: [facility] 06-27-2024 14:01-0400 Systolic blood pressure 123 mm[Hg] DO Broderick Ball Work Phone: [facility] 06-08-2024 14:26-0400 Body height 157.48 cm DO Broderick Ball Work Phone: [facility] 06-08-2024 14:26-0400 Body mass index (BMI) [Ratio] 34 kg/m2 DO Broderick Ball Work Phone: [facility] 06-08-2024 14:26-0400 Body temperature 97.6 [degF] DO Broderick Ball Work Phone: [facility] 06-08-2024 14:26-0400 Body weight 84.36 kg DO Broderick Ball Work Phone: [facility] 06-08-2024 14:26-0400 Diastolic blood pressure 70 mm[Hg] DO Broderick Ball Work Phone: [facility] 06-08-2024 14:26-0400 Heart rate 73 /min DO Broderick Ball Work Phone: [facility] 06-08-2024 14:26-0400 Respiratory rate 16 /min DO Broderick Ball Work Phone: [facility] 06-08-2024 14:26-0400 SaO2% (BldA) [Mass fraction] 99 % DO Broderick Ball Work Phone: [facility] 06-08-2024 14:26-0400 Systolic blood pressure 140 mm[Hg] DO Broderick Ball Work Phone: [facility] 05-30-2024 07:27-0400 Body height 157.48 cm DO Broderick Ball Work Phone: [facility] 05-30-2024 07:27-0400 Body weight 86.18 kg DO Broderick Ball Work Phone: [facility] 05-23-2024 11:23-0400 Body height 157.5 cm Randa Reilly MD Work Phone: [facility] 05-23-2024 11:23-0400 Body mass index (BMI) [Ratio] 34.55 kg/m2 Randa Reilly MD Work Phone: [facility] 05-23-2024 11:23-0400 Body weight 85.68 kg Randa Reilly MD Work Phone: [facility] 05-23-2024 11:23-0400 Diastolic blood pressure 72 mm[Hg] Randa Reilly MD Work Phone: [facility] 05-23-2024 11:23-0400 Heart rate 85 /min Randa Reilly MD Work Phone: [facility] 05-23-2024 11:23-0400 Systolic blood pressure 133 mm[Hg] Randa Reilly MD Work Phone: [facility] 04-21-2024 10:00-0400 Body height 157.48 cm DO Broderick Ball Work Phone: [facility] 04-21-2024 10:00-0400 Body mass index (BMI) [Ratio] 34.5 kg/m2 DO Broderick Ball Work Phone: [facility] 04-21-2024 10:00-0400 Body weight 85.72 kg DO Broderick Ball Work Phone: [facility] 03-29-2024 13:34-0400 Body height 157.48 cm DO Broderick Ball Work Phone: [facility] 03-29-2024 13:34-0400 Body mass index (BMI) [Ratio] 33.3 kg/m2 DO Broderick Ball Work Phone: [facility] 03-29-2024 13:34-0400 Body weight 82.78 kg DO Broderick Ball Work Phone: [facility] 03-29-2024 13:34-0400 Diastolic blood pressure 77 mm[Hg] DO Broderick Ball Work Phone: [facility] 03-29-2024 13:34-0400 Heart rate 73 /min DO Broderick Ball Work Phone: [facility] 03-29-2024 13:34-0400 Respiratory rate 12 /min DO Broderick Ball Work Phone: [facility] 03-29-2024 13:34-0400 Systolic blood pressure 124 mm[Hg] DO Broderick Ball Work Phone: [facility] 03-27-2024 11:25-0400 Body height 157.48 cm DO Broderick Ball Work Phone: [facility] 03-27-2024 11:25-0400 Body weight 84.36 kg DO Broderick Ball Work Phone: [facility] 03-07-2024 08:53-0400 Body height 157.5 cm Randa Reilly MD Work Phone: [facility] 03-07-2024 08:53-0400 Body mass index (BMI) [Ratio] 34.06 kg/m2 Randa Reilly MD Work Phone: [facility] 03-07-2024 08:53-0400 Body weight 84.46 kg Randa Reilly MD Work Phone: [facility] 03-07-2024 08:53-0400 Diastolic blood pressure 72 mm[Hg] Randa Reilly MD Work Phone: [facility] 03-07-2024 08:53-0400 Heart rate 85 /min Randa Reilly MD Work Phone: [facility] 03-07-2024 08:53-0400 Systolic blood pressure 133 mm[Hg] Randa Reilly MD Work Phone: [facility] 02-09-2024 14:58-0400 Body height 161.29 cm [facility] 02-09-2024 14:58-0400 Body mass index (BMI) [Ratio] 33.5 kg/m2 [facility] 02-09-2024 14:58-0400 Body weight 87.08 kg [facility] 02-09-2024 14:58-0400 Diastolic blood pressure 71 mm[Hg] [facility] 02-09-2024 14:58-0400 Heart rate 78 /min [facility] 02-09-2024 14:58-0400 Respiratory rate 12 /min [facility] 02-09-2024 14:58-0400 Systolic blood pressure 114 mm[Hg] [facility] 12-23-2023 09:02-0500 Body height 157.5 cm Alejandro Villar MD, PhD Work Phone: [facility] 12-23-2023 09:02-0500 Body temperature 97.59 [degF] Alejandro Villar MD, PhD Work Phone: [facility] 12-23-2023 09:02-0500 Body weight 86.64 kg Alejandro Villar MD, PhD Work Phone: [facility] 12-23-2023 09:02-0500 Diastolic blood pressure 72 mm[Hg] Alejandro Villar MD, PhD Work Phone: [facility] 12-23-2023 09:02-0500 Heart rate 85 /min Alejandro Villar MD, PhD Work Phone: [facility] 12-23-2023 09:02-0500 SaO2% (BldA) [Mass fraction] 100 % Alejandro Villar MD, PhD Work Phone: [facility] 12-23-2023 09:02-0500 Systolic blood pressure 133 mm[Hg] Alejandro Villar MD, PhD Work Phone: [facility] 09-08-2023 14:50-0400 Body height 157.5 cm Mirian Bell [employer] 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.ROLL SCALE MAN Work Phone: [facility] 09-08-2023 14:50-0400 Body weight 86.5 kg Mirian Bell [employer] CRA[employer] TEACHER.[employer]LL SCALE MAN Work Phone: [facility] 09-08-2023 14:50-0400 Diastolic blood pressure 64 mm[Hg] Mirian Bell [employer] CRA[employer] TEACHER.ROLL SCALE MAN Work Phone: [facility] 09-08-2023 14:50-0400 Heart rate 62 /min Mirian Bell [employer] CRA[employer] TEACHER.ROLL SCALE MAN Work Phone: [facility] 09-08-2023 14:50-0400 Systolic blood pressure 130 mm[Hg] Mirian Bell [employer] CRA[employer] TEACHER.ROLL SCALE MAN Work Phone: [facility] 08-25-2023 10:20-0400 Body height 161.29 cm Niki Blades Other [employer] Other 08-25-2023 10:20-0400 Body mass index (BMI) [Ratio] 34.35 kg/m2 Niki Blades Other [employer] Other 08-25-2023 10:20-0400 Body weight 89.36 kg Niki Blades Other [employer] Other 08-16-2023 10:00-0400 Body height 161.29 cm Niki Blades Other [employer] Other 08-16-2023 10:00-0400 Body mass index (BMI) [Ratio] 34.35 kg/m2 Niki Blades Other [employer] Other 08-16-2023 10:00-0400 Body weight 89.36 kg Niki Blades Other [employer] Other 08-05-2023 07:21-0400 Body temperature 97.8 [degF] DO Broderick Ball Work Phone: [facility] 08-05-2023 07:21-0400 Diastolic blood pressure 73 mm[Hg] DO Broderick Ball Work Phone: [facility] 08-05-2023 07:21-0400 Heart rate 63 /min DO Broderick Ball Work Phone: [facility] 08-05-2023 07:21-0400 Respiratory rate 14 /min DO Broderick Ball Work Phone: [facility] 08-05-2023 07:21-0400 SaO2% (BldA) [Mass fraction] 97 % DO Broderick Ball Work Phone: [facility] 08-05-2023 07:21-0400 Systolic blood pressure 117 mm[Hg] DO Broderick Ball Work Phone: [facility] 08-05-2023 06:00-0400 Body weight 96.7 kg DO Broderick Ball Work Phone: [facility] 08-04-2023 00:00-0400 Inhaled oxygen flow rate 3 L/min DO Broderick Ball Work Phone: [facility] 08-03-2023 07:02-0400 Body height 157.48 cm DO Broderick Ball Work Phone: [facility] 08-03-2023 07:02-0400 Body mass index (BMI) [Ratio] 35 kg/m2 DO Broderick Ball Work Phone: [facility] 07-07-2023 14:20-0400 Body height 161.29 cm Niki Blades Other [employer] [facility] [employer] Other 07-07-2023 14:20-0400 Body mass index (BMI) [Ratio] 33.65 kg/m2 Niki Blades Other [employer] Other 07-07-2023 14:20-0400 Body weight 87.54 kg Niki Blades Other [employer] Other 07-07-2023 14:20-0400 Diastolic blood pressure 80 mm[Hg] Niki Blades Other [employer] Other 07-07-2023 14:20-0400 Systolic blood pressure 142 mm[Hg] Niki Blades Other [employer] Other 06-04-2023 08:42-0400 Body height 162.56 cm DO Broderick Ball Work Phone: [facility] 06-04-2023 08:42-0400 Body weight 87.08 kg DO Broderick Ball Work Phone: [facility] 05-06-2023 14:30-0400 Body height 161.29 cm Bertram Sanders Other [employer] Other 05-06-2023 14:30-0400 Body mass index (BMI) [Ratio] 33.3 kg/m2 Bertram Sanders Other [employer] Other 05-06-2023 14:30-0400 Body weight 86.64 kg Bertram Sanders Other [employer] Other 05-06-2023 14:30-0400 Diastolic blood pressure 70 mm[Hg] Bertarm Sanders Other [employer] Other 05-06-2023 14:30-0400 Systolic blood pressure 125 mm[Hg] Bertram Sanders Other [employer] Other 05-03-2023 14:30-0400 Body height 161.29 cm Broderick Ball Other [employer] Other 05-03-2023 14:30-0400 Body mass index (BMI) [Ratio] 33.16 kg/m2 Broderick Ball Other [employer] Other 05-03-2023 14:30-0400 Body weight 86.27 kg Broderick Ball Other [employer] Other 05-03-2023 14:30-0400 Diastolic blood pressure 71 mm[Hg] Broderick Ball Other [employer] Other 05-03-2023 14:30-0400 Respiratory rate 12 /min Broderick Ball Other [employer] Other 05-03-2023 14:30-0400 Systolic blood pressure 120 mm[Hg] Broderick Ball Other [employer] Other 03-25-2023 11:00-0400 Body height 161.29 cm Broderick Ball Other [employer] Other 03-25-2023 11:00-0400 Body mass index (BMI) [Ratio] 33.61 kg/m2 Broderick Ball Other [employer] Other 03-25-2023 11:00-0400 Body weight 87.45 kg Broderick Ball Other [employer] Other 03-25-2023 11:00-0400 Diastolic blood pressure 78 mm[Hg] Broderick Ball Other [employer] Other 03-25-2023 11:00-0400 Respiratory rate 12 /min Broderick Ball Other [employer] Other 03-25-2023 11:00-0400 Systolic blood pressure 135 mm[Hg] Broderick Ball Other [employer] Other 01-07-2023 14:15-0500 Body height 161.29 cm Bertram Tommy Other [employer] Other 01-07-2023 14:15-0500 Body mass index (BMI) [Ratio] 32.25 kg/m2 Bertram Batesyahir Other [employer] Other 01-07-2023 14:15-0500 Body weight 83.92 kg Bertram Janadavidtanisha Other [employer] Other 01-07-2023 14:15-0500 Diastolic blood pressure 85 mm[Hg] Bertram Sanders Other [employer] Other 01-07-2023 14:15-0500 Systolic blood pressure 155 mm[Hg] Bertram Sanders Other [employer] Other 11-25-2022 11:00-0500 Body height 161.29 cm Broderick Ball Other [employer] Other 11-25-2022 11:00-0500 Body mass index (BMI) [Ratio] 32.25 kg/m2 Broderick Ball Other [employer] Other 11-25-2022 11:00-0500 Body weight 83.92 kg Broderick Ball Other [employer] Other 11-25-2022 11:00-0500 Diastolic blood pressure 78 mm[Hg] Broderick Ball Other [employer] Other 11-25-2022 11:00-0500 Respiratory rate 12 /min Broderick Ball Other [employer] Other 11-25-2022 11:00-0500 Systolic blood pressure 118 mm[Hg] Broderick Ball Other [employer] Other 09-10-2022 13:48-0400 Body height 157.5 cm Alejandro Villar MD, PhD Work Phone: [facility] 09-10-2022 13:48-0400 Body weight 88.27 kg Alejandro Villar MD, PhD Work Phone: [facility] 09-10-2022 13:48-0400 Diastolic blood pressure 86 mm[Hg] Alejandro Villar MD, PhD Work Phone: [facility] 09-10-2022 13:48-0400 Heart rate 76 /min Alejandro Villar MD, PhD Work Phone: [facility] 09-10-2022 13:48-0400 Systolic blood pressure 148 mm[Hg] Alejandro Villar MD, PhD Work Phone: [facility] 07-23-2022 10:09-0400 Body height 160 cm Kitty Vidal MD Work Phone: [facility] 07-23-2022 10:09-0400 Body weight 88 kg Kitty Vidal MD Work Phone: [facility] 07-23-2022 10:09-0400 Diastolic blood pressure 66 mm[Hg] iKtty Vidal MD Work Phone: [facility] 07-23-2022 10:09-0400 Heart rate 63 /min Kitty Vidal MD Work Phone: [facility] 07-23-2022 10:09-0400 Systolic blood pressure 136 mm[Hg] Kitty Vidal MD Work Phone: [facility] 01-06-2022 11:30-0500 Body height 161.29 cm Bertram Janayahir Other [employer] Other 01-06-2022 11:30-0500 Body mass index (BMI) [Ratio] 30.68 kg/m2 Bertram Sanders Other [employer] Other 01-06-2022 11:30-0500 Body weight 79.83 kg Bertram Sanders Other [employer] Other Encounters Encounter Date Encounter Type Care Provider Facility Start: 06-29-2024 End: 06-29-2024 ambulatory ALEJANDRO VILLAR Facility:[facility] Start: 06-29-2024 End: 06-29-2024 Patient encounter procedure Alejandro Villar MD, PhD Work Phone: Neurology Comment on above: Focal epilepsy with impairment of consciousness, intractable (HCC) (Primary Dx); Partial epilepsy with impairment of consciousness, intractable (HCC) Start: 06-29-2024 End: 06-29-2024 ambulatory ALEJANDRO VILLAR Facility:[facility] Start: 06-27-2024 End: 06-27-2024 ambulatory DO Broderick Howard Work Phone: [facility] Work Phone: Start: 06-27-2024 End: 06-27-2024 Patient encounter procedure DO Broderick Howard Work Phone: [facility] Work Phone: Start: 06-12-2024 End: 06-12-2024 ambulatory JACK POMPA Not Available Start: 06-08-2024 End: 06-08-2024 ambulatory DO Broderick Howard Work Phone: [facility] Work Phone: Start: 06-08-2024 End: 06-08-2024 Patient encounter procedure DO Broderick Howard Work Phone: [facility] Work Phone: Start: 06-05-2024 Non-patient / Non-visit DO Miguel A Howard Work Phone: [facility] Work Phone: Start: 06-05-2024 End: 06-05-2024 ambulatory Keith Parks MD Facility: [facility] Start: 05-30-2024 End: 05-30-2024 Patient encounter procedure DO Broderick Howard Work Phone: [facility] [place] Work Phone: Start: 05-30-2024 End: 05-30-2024 ambulatory DO Broderick Howard Work Phone: [facility] Work Phone: Start: 05-23-2024 End: 05-23-2024 Patient encounter procedure Randa Reilly MD Work Phone: Neurology Comment on above: Intractable 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 aura and without status migrainosus (Primary Dx) Start: 05-23-2024 End: 05-23-2024 ambulatory RANDA TUCKERONA Facility:[facility] Start: 05-15-2024 Non-patient / Non-visit DO Miguel A camargo Ball Work Phone: [facility] Work Phone: Start: 05-15-2024 End: 05-15-2024 ambulatory Keith Parks MD Facility:[facility] Start: 05-05-2024 Non-patient / Non-visit DO Miguel A camargo Ball Work Phone: [facility] Work Phone: Start: 05-03-2024 End: 05-03-2024 ambulatory DAVID MCFADDEN Not Available Start: 04-21-2024 End: 04-21-2024 ambulatory DO Broderick Ball Work Phone: [facility] Work Phone: Start: 04-21-2024 End: 04-21-2024 Patient encounter procedure DO Broderick Ball Work Phone: [facility] Neurosurgery Work Phone: Start: 03-29-2024 End: 03-29-2024 Patient encounter procedure DO Broderick Ball Work Phone: [facility] Work Phone: Start: 03-28-2024 End: 03-28-2024 Patient encounter procedure DO Broderick Ball Work Phone: [facility] [place] Work Phone: Start: 03-28-2024 End: 03-28-2024 ambulatory Broderick Ball Facility:[facility] Start: 03-09-2024 End: 03-09-2024 Patient encounter procedure DO Broderick Ball Work Phone: [facility]Pac[facility] Check Start: 03-09-2024 End: 03-09-2024 ambulatory DO Broderick Ball Work Phone: [facility] Work Phone: Start: 03-08-2024 Follow-up encounter Kitty Vidal MD Work Phone: [facility] Department Start: 03-08-2024 Patient encounter procedure Kitty Vidal MD Work Phone: [facility] Start: 03-07-2024 End: 03-07-2024 Patient encounter procedure Randa Reilly MD Work Phone: Neurology Comment on above: Intractable 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 aura and without status migrainosus (Primary Dx); Cervicalgia; SHELL (obstructive sleep apnea) Start: 03-07-2024 End: 03-07-2024 ambulatory RANDA REILLY Facility:[facility] Start: 03-03-2024 Non-patient / Non-visit DO Miguel A Howard Work Phone: [facility] Work Phone: Start: 02-15-2024 Non-patient / Non-visit DO Miguel A Howard Work Phone: [facility] Work Phone: Start: 02-10-2024 Non-patient / Non-visit DO Miguel A Howard Work Phone: [facility] Work Phone: Start: 02-09-2024 End: 02-09-2024 ambulatory [facility] Work Phone: Start: 02-09-2024 End: 02-09-2024 Patient encounter procedure [facility] Work Phone: Start: 12-23-2023 End: 12-23-2023 Patient encounter procedure Alejandro Villar MD, PhD Work Phone: Neurology Comment on above: Intractable 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 aura and without status migrainosus (Primary Dx) Start: 12-23-2023 End: 12-23-2023 ambulatory BRODERICK HOWARD Facility:[facility] Start: 11-24-2023 End: 11-24-2023 ambulatory Broderick Howard Other [employer] Other Start: 11-24-2023 Office outpatient vi sit 15 minutes Broderick Lee [facility] Start: 11-24-2023 End: 11-24-2023 Patient encounter procedure [facility] Work Phone: Start: 09-13-2023 Refill Alejandro wright MD, PhD Work Phone: Neurology Comment on above: Refill Request Patient Update Start: 09-08-2023 End: 09-08-2023 ambulatory MIRIAN BELL Facility:[facility] Start: 09-08-2023 Follow-up encounter Kitty Vidal MD Work Phone: [facility] Start: 09-08-2023 End: 09-08-2023 Patient encounter procedure Kitty Vidal MD Work Phone: [facility] Department Comment on above: 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); Cardiac pacemaker in situ; Bradycardia Start: 08-25-2023 End: 08-25-2023 ambulatory Niki Blades Other [employer] Other Start: 08-25-2023 Postop follow up vis it related to original px Niki Blades [facility] Neurosurgery Start: 08-16-2023 End: 08-16-2023 ambulatory Niki Blades Other [employer] Other Start: 08-16-2023 Postop follow up vis it related to original px Niki Blades [facility] Neurosurgery Start: 08-13-2023 End: 08-13-2023 ambulatory Broderick Howard Other [employer] Other Start: 08-13-2023 Telephone encounter Broderick SCHWARZ [facility] Start: 08-12-2023 Postop follow up vis it related to original px Niki Blades [facility] Neurosurgery Start: 08-12-2023 End: 08-12-2023 ambulatory Niki A Blades [facility] [employer] Other Start: 08-03-2023 End: 08-05-2023 Admission to same day surgery center DO Broderick Howard Work Phone: [facility]Surgery [facility] [place] Start: 08-03-2023 End: 08-05-2023 ambulatory DO Broderick Howard Work Phone: [facility] Work Phone: Start: 08-02-2023 End: 08-02-2023 ambulatory Broderick Howard Other [employer] Other Start: 08-02-2023 Telephone encounter Broderick Howard [facility] Start: 07-20-2023 End: 07-20-2023 Patient encounter procedure DO Broderick Howard Work Phone: [facility]-Pre-Surgical Testing Work Phone: Start: 07-20-2023 End: 07-20-2023 ambulatory DO Broderick Howard Work Phone: [facility] Work Phone: Start: 07-09-2023 End: 07-09-2023 ambulatory Niki Blades Other [employer] Other Start: 07-09-2023 Telephone encounter Niki Blades [facility] R[facility] Resource Nurse Start: 07-07-2023 End: 07-07-2023 ambulatory Niki Blades Other [employer] Other Start: 07-07-2023 Office outpatient ne w 45 minutes Niki Blades [facility] Neurosurgery Start: 06-08-2023 Follow-up encounter Kitty Vidal MD Work Phone: [facility] Start: 06-08-2023 Pacemaker Remote F/U Kitty Vidal MD Work Phone: [facility] Department Start: 06-04-2023 ambulatory Facility:[id number] Start: 06-04-2023 End: 06-04-2023 Patient encounter procedure DO Broderick Howard Work Phone: [facility] [place] Work Phone: Start: 06-04-2023 End: 06-04-2023 ambulatory DO Broderick Howard Work Phone: [facility] Work Phone: Start: 05-14-2023 ambulatory Facility:[id number] Start: 05-14-2023 End: 05-14-2023 ambulatory DO Broderick Howard Work Phone: [facility] Work Phone: Start: 05-14-2023 End: 05-14-2023 Patient encounter procedure DO Broderick Howard Work Phone: [facility]-Pacemaker Check Start: 05-06-2023 End: 05-06-2023 ambulatory Bertram Sanders Other [employer] Other Start: 05-06-2023 Patient encounter procedure Bertram Sanders [facility] Gastroenterology Start: 05-03-2023 End: 05-03-2023 ambulatory Broderick Howard Other [employer] Other Start: 05-03-2023 Office outpatient vi sit 15 minutes Broderick Howard [facility] Start: 05-03-2023 Telephone encounter Broderick SCHWARZ [facility] Start: 03-29-2023 End: 04-14-[address] BRODERICK HOWARD [facility] [employer] Other Start: 03-29-2023 Telephone encounter Broderick SCHWARZ [facility] Start: 03-25-2023 End: 03-25-2023 ambulatory Broderick Howard Other [employer] Other Start: 03-25-2023 Office outpatient vi sit 25 minutes Broderick Lee [facility] Start: 03-15-2023 End: 04-14-2023 ambulatory AGUILAR Guy FAWWAD Facility:[facility] Start: 02-24-2023 Follow-up encounter Kitty Vidal MD Work Phone: [facility] Start: 02-24-2023 Pacemaker Remote F/U Kitty Vidal MD Work Phone: [facility] Start: 02-15-2023 End: 03-12-2023 ambulatory AGUILAR H FAWWAD Facility:[facility] Start: 02-03-2023 End: 02-03-2023 ambulatory Bertram Janadavidtanisha Other [employer] Other Start: 02-03-2023 Telephone encounter Bertram Sanders [facility] Gastroenterology Start: 01-13-2023 End: 02-12-2023 ambulatory AGUILAR H FAWWAD Facility:[facility] Start: 01-07-2023 End: 01-07-2023 ambulatory Bertram Didavidtanisha Other [employer] Other Start: 01-07-2023 Patient encounter procedure Bertram Sanders [facility] Start: 12-16-2022 End: 01-13-2023 ambulatory AGUILAR Guy FAWWAD Facility:[facility] Start: 11-25-2022 End: 11-25-2022 ambulatory Broderick Howard Other [employer] Other Start: 11-25-2022 Follow-up encounter Kitty Vidal MD Work Phone: [facility] Start: 11-25-2022 Office outpatient vi sit 25 minutes Broderick Lee [facility] Start: 11-25-2022 Pacemaker Remote F/U Kitty Vidal MD Work Phone: [facility] Department Start: 11-23-2022 Patient encounter procedure Broderick Lee Other [employer] Other Start: 11-16-2022 End: 12-16-2022 ambulatory SHAIKH Guy FAKatWAD Facility:[facility] Start: 10-15-2022 Adult health examination Niki Blades Other [employer] Other Start: 10-15-2022 Gynecological examination normal Niki Blades Other [employer] Other Start: 10-15-2022 End: 11-15-2022 ambulatory SHAIKH Guy FAWWAD Facility:[facility] Start: 09-15-2022 End: 10-14-2022 ambulatory AGUILAR H FAWWAD Facility:[facility] Start: 09-10-2022 End: 09-10-2022 Patient encounter procedure Alejandro Villar MD, PhD Work Phone: Neurology Comment on above: 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, intractable (HCC) Start: 08-26-2022 Follow-up encounter Kitty Vidal MD Work Phone: [facility] Start: 08-26-2022 Pacemaker Remote F/U Kitty Vidal MD Work Phone: [facility] Start: 08-16-2022 End: 09-14-2022 ambulatory [...] Dx) Start: 07-16-2022 End: 08-15-2022 ambulatory AGUILAR H MAGID Facility:[facility] Start: 06-15-2022 End: 07-15-2022 ambulatory SHAIKH Guy GERARDO Facility:[facility] Start: 06-08-2022 End: 06-08-[address] BRODERICK HOWARD Facility:[facility] Start: 05-15-2022 End: 06-12-[address] BRODERICK HOWARD Facility:[facility] Start: 01-06-2022 End: 01-06-2022 ambulatory Bertram Sanders Other [employer] Other Start: 01-06-2022 Patient encounter procedure Bertram Sanders [facility] Gastroenterology Start: 10-14-2020 End: 10-14-2020 Pre-procedure evaluation check Niki Blades Other [employer] Other Procedures Date Procedure Procedure Detail Performing [...] on above: Result Comment: PERF ORMED BY: [facility] [address] [place] [address] PATHOLOGIST [employer] DRILLING MACHINE OPERATOR LELE FALK M.D. Start: 08-03-2023 Excision of [...] Treatment Date Care Activity Detail Author Start: 06-29-2027 Diabetes Screening Diabetes Screenin [facility] Start: 01-04-2025 End: 01-04-2025 Patient encounter procedure 01/04/2025 2:00 PM EST Office Visit Neurology [id number] [place] [address] Alejandro Villar MD, PhD [address] [place], [place] [id number] Follow up Neurology Comment on above: Follow up Start: 11-28-2024 DIABETES SCREEN DIABETES SCREEN [facility] Start: 11-28-2024 [facility] Start: 09-05-2024 End: 09-05-2024 Patient encounter procedure 09/05/2024 1:30 PM EDT Office Visit Neurology [id number] [place] [address] [place] [id number] [place] [address] Botox Neurology Comment on above: Botox Start: 08-31-2024 End: 08-31-2024 Patient encounter procedure 08/31/2024 10:00 AM EDT Office Visit Cardiology [address] [place] [id number] [place] [address] [place], [place] [id number] return in about 1 year (around 09/08/2024) Cardiology Comment on above: return in about 1 ye ar (around 09/08/2024) Start: 07-16-2024 Influenza vaccination Influenza Vacc ine (#1) [facility] Start: 06-29-2024 End: 06-29-2024 Patient encounter procedure 06/29/2024 1:00 PM EDT Office Visit Neurology [id number] [place], [place] [id number] Alejandro Villar MD, PhD [address] [place], [place] [id number] Follow Up-rescheduled from 06/22 Neurology Comment on above: Follow Up-reschedule d from 06/22 Start: 04-21-2024 Patient referral [facility] Work Phone: Start: 11-15-2023 Advance Directive Discussion Advance Directive Discussion [facility] Start: 08-05-2023 [facility] Start: 08-03-2023 Hospital admission [facility] Start: 08-03-2023 [facility] Start: 07-16-2023 Covid-19 Vaccine ( season) Covid-19 Vaccine () [facility] Start: 07-16-2023 Influenza vaccination [facility] Start: 11-15-2022 ADVANCE DIRECTIVE DISCUSSION ADVANCE DIRECTIVE DISCUSSION [facility] Start: 09-10-2022 End: 11-10-2022 levETIRAcetam [Mass/volume] in Serum or Plasma [facility] Work Phone: Comment on above: Expected: 09/10/2022 , Expires: 11/10/2022 Start: 09-10-2022 End: 11-10-2022 Zonisamide [Mass/volume] in Serum or Plasma [facility] Work Phone: Comment on above: Expected: 09/10/2022 , Expires: 11/10/2022 Start: 07-16-2022 Influenza vaccination INFLUENZA (#1) [facility] Start: 04-30-2022 Screening for malign ant neoplasm of colon [facility] Start: 11-15-2021 ADVANCE DIRECTIVE DISCUSSION ADVANCE DIRECTIVE DISCUSSION [facility] Start: 02-04-2019 Pneumococcal Vaccine : 65+ (2 - PCV) Pneumococcal Vaccine: 65+ (2 - PCV) [facility] Start: 02-04-2019 Pneumococcal Vaccine : 65+ (2 of 2 - PCV) Pneumococcal Vaccine: 65+ (2 of 2 - PCV) [facility] Start: 2015 BONE DENSITY BONE DENSITY [facility] Start: 2015 Bone Density Screening Bone Density Screening [facility] Start: 2015 PNEUMOCOCCAL: 65+ (1 - PCV) PNEUMOCOCCAL: 65+ (1 - PCV) [facility] Start: 2015 Screening for osteoporosis Bone Density Screening [facility] Start: 2010 RSV Vaccine (1 - 1-d ose 60+ series) RSV Vaccine (1 - 1-dose 60+ series) [facility] [facility] Start: 2000 SHINGRIX VACCINE (1 of 2) SHINGRIX VACCINE (1 of 2) [facility] Start: 1995 COLOGUARD (FIT-DNA) COLOGUARD (FIT-D NA) [facility] Start: 1995 Colonoscopy COLONOSCOPY [facility] Start: 1995 COLORECTAL CANCER SCREENING COLORECTAL CANCER SCREENING [facility] Start: [address] COLONOGRAPHY [facility] Start: 1995 FECAL OCCULT BLOOD FECAL OCCULT BLOO D [facility] Start: 1995 Lipid 1996 panel - S akila or Plasma Lipid Screening [facility] Start: 1995 Lipid panel Lipid Screening [facility] Start: 1995 LIPID SCREEN LIPID SCREEN [facility] Start: 1995 Screening for malign ant neoplasm of colon [facility] Start: 1995 SIGMOIDOSCOPY SIGMOIDOSCOPY [facility] Start: 1990 Mammography [facility] Start: 1990 Screening for malign ant neoplasm of breast Mammogram Screening [facility] Start: 1969 Urine microalbumin profile [facility] Start: 1968 ANNUAL PCP TEAM WEB CONTENT SPECIALIST YESENIA DISEASE VISIT ANNUAL PCP TEAM CHRONIC DISEASE VISIT [facility] Start: 1968 BP CONTROLLED (<130/80) BP CONTROLLE D (<130/80) [facility] Start: 1968 HEPATITIS C SCREENING HEPATITIS C [facility] Start: 1968 Hepatitis C screening Hepatitis C [facility] Start: 1950 COVID-19 VACCINE (#1) COVID-19 VACCI NE (#1) [facility] End: 07-23-2023 ECG COMPLETE ECG COMPLETE ECG Routine Chronic fatigue 1 Occurrences starting 07/23/2022 until 07/23/2023 [facility] Work Phone: Comment on above: 1 Occurrences starti ng 07/23/2022 until 07/23/2023 ECG COMPLETE ECG COMPLETE ECG Routine Sinus node dysfunction (HCC) Cardiac pacemaker in situ Bradycardia Ordered: 09/08/2023 [facility] Work Phone: Comment on above: Ordered: 09/08/2023 Patient Education [facility] Work Phone: Patient referral [facility] Work Phone: Renal function 2000 panel - Serum or Plasma [facility] [place] Immunizations Immunization Date Immunization Notes Care Provider Ve[facility] 08-31-2023 influenza virus vaccine, unspecified formulation Randa Reilly MD Work Phone: [facility] 07-30-2022 influenza virus vaccine, split virus (incl. purified surface antigen) [employer]iki Weeks Other [employer] Other 07-30-2022 influenza virus vaccine, unspecified formulation [facility] 09-10-2021 COVID-19 mRNA-1273 (Moderna) DO Broderick Howard Work Phone: [facility] 07-30-2021 influenza virus vaccine, split virus (incl. purified surface antigen) Niki Blades Other [employer] Other 07-30-2021 influenza virus vaccine, unspecified formulation [facility] 01-14-2021 COVID-19 mRNA-1273 (Moderna) DO [employer] Work Phone: [facility] 12-17-2020 COVID-19 mRNA-1276 (Moderna) DO [employer] Work Phone: [facility] 09-03-2020 influenza virus vaccine, split virus (incl. purified surface antigen) Niki Blades Other [employer] Other 09-03-2020 influenza virus vaccine, unspecified formulation [facility] 08-23-2019 influenza virus vaccine, split virus (incl. purified surface antigen) Niki Blades Other [employer] [facility] [employer] Other 08-23-2019 influenza virus vaccine, unspecified formulation [facility] 09-07-2018 influenza virus vaccine, split virus (incl. purified surface antigen) Niki Blades Other [employer] Other 09-07-2018 influenza virus vaccine, unspecified formulation [facility] 02-04-2018 pneumococcal polysaccharide vaccine, 23 valent Niki Blades Other [facility] Payers Date Payer Category Payer Self-pay [id number] 2021 Unknown [id number] 2015 Private Health Insurance [employer] JUAREZ MEDICARE SUPPLEMENT [id number] 2015-Present [phone] [address] [place] [id number] Indemnity [id number] 2013 Medicare [id number] 2008 Unknown Cate BC/ [id number] 1959 Medicare [id number] 1959 Medicare [id number] 2.16.840.1.549744.19 1950 Unknown [id number] 2.16.840.1.603927.3.579.2 .593 1950 Unknown [id number] 2.16.840.1.159644.3.579.2 .593 1950 Unknown [id number] 2.16.840.1.643389.3.579.2 .593 1950 Unknown [id number] 2.16.840.1.493396.3.579.2 .593 1950 Unknown [id number] 2.16.840.1.178110.3.579.2 .593 1950 Unknown [id number] 2.16.840.1.280532.3.579.2 .593 1950 Unknown [id number] 2.16.840.1.550953.3.579.2 .593 1950 Unknown [id number] 2.16.840.1.622644.3.579.2 .593 1950 Unknown [id number] 2.16.840.1.067742.3.579.2 .593 1950 Unknown [id number] 2.16.840.1.075383.3.579.2 .593 1950 Unknown [id number] 2.16.840.1.706348.3.579.2 .593 1950 Unknown [id number] 2.16.840.1.033662.3.579.2 .593 1950 Unknown [id number] 2.16.840.1.206344.3.579.2 .593 1950 Unknown [id number] 2.16.840.1.731336.3.579.2 .593 1950 Unknown [id number] 2.16.840.1.106970.3.579.2 .593 1950 Unknown [id number] 2.16.840.1.207012.3.579.2 .593 1950 Unknown [id number] 2.16.840.1.078233.3.579.2 .593 1950 Unknown [id number] 2.16.840.1.958430.3.579.2 .356 1950 Unknown [id number] 2.16.840.1.059394.3.579.2 .356 1950 Unknown [id number] 2.16.840.1.872631.3.579.2 .196 1950 Unknown [id number] 2.16.840.1.345002.3.579.2 .196 1950 Unknown [id number] 2.16.840.1.485411.3.579.2 .1259 1950 Unknown [id number] 2.16.840.1.864659.3.579.2 .1259 1950 Unknown [id number] 2.16.840.1.775434.3.579.2 .1259 1950 Unknown [id number] 2.16.840.1.377327.3.579.2 .1259 Unknown [id number] 2.16.840.1.982169.3.579.2 .531 Unknown [id number] 2.16.840.1.716847.3.579.2 .531 Unknown [id number] 2.16.840.1.700560.3.579.2 .531 Unknown [id number] 2.16.840.1.337158.3.579.2 .531 Social History Date Type Detail Facility Start: 09-10-2022 End: 09-08-2023 Sex Assigned At [facility] Start: 02-19-2011 End: 09-10-2022 Tobacco smoking status NHIS Never smoked tobacco [facility] Start: 02-19-2011 End: 09-10-2022 Tobacco use and exposure Smokeless tobacco non-user [facility] Start: 11-28-2021 End: 06-29-2024 Alcohol intake Current non-drinker of alcohol (finding) [facility] Start: 1950 Sex Assigned At Not on file [facility] Start: 07-13-2022 End: 09-10-2022 Exposure to SARS-CoV-2 (event) Not sure [facility] Start: 1950 Sex Assigned At Female F [facility] Start: 09-10-2022 End: 09-08-2023 History of Social function [facility] Adult Depression Screening Assessment 2 [facility] Medical Equipment Procedure Code Equipment Code Equipment Origin al Text Equipment Identifier Dates Plate Bn 12mm Cm f Ti 2 H Lp - [id number] Start: 08-16-2015 Pin Crss Sd Scr 1.5x4mm - [id number] Start: 08-16-2015 [id number] [employer] [id number] Start: 05-22-2015 Goals Date Patient Goal Desired Activity /State Personal health goal Functional Status Date Assessment Result Facility 08-05-2023 Functional status Patient at Baseline [facility] Work Phone: Mental Status Date Assessment Result Facility 08-05-2023 Cognitive function Cognitive Sta tus Patient at Baseline [facility] Work Phone: Clinical Notes 01-24-2015 to 06-29-2024 Alejandro Villar MD, PhD - 06/29/2024 2:41 PM Tomasa Everett RN - 05/23/2024 11:54 AM Tomasa Everett RN - 05/23/2024 11:54 AM Randa Allen MD - 05/23/2024 11:12 AM EDT Note Date & Type Note Facility 06-29-2024 Note HNO ID: [id number] Author: ALEJANDRO VILLAR MD, PhD Service: ? Author Type: Physician Type: Progress Notes Filed: 07/03/2024 12:56 Note Text: [facility] Patient Name: Cassi Rodrigez Date of : 1950 ESTABLISHED EPILEPSY CLINIC NOTE 06/29/2024 1:00 PM Reason for Visit: Epilepsy Clinical Summary: Ms. Rodrigez is a 74 year old female seen in [facility]. Classification Summary HISTORY OF PRESENT ILLNESS Handedness: Age of onset: Seizure History and Evolution SEIZURE HISTORY: -Onset: Her initial seizure per and patient described as starting with a eugenie vu feeling followed by, eyes shut, and passing out. She would be unresponsive during this time. Started on Keppra w/o benefit and Zonegran added thereafter. Keppra and Zonegran are the only AEDs patient has been on with exception of Lyrica (for pain). She continues to have these though last was several years ago. Only has ever had 1 GTC in 2004 while in bed out of sleep; no clear triggers, unprovoked. Interval Seizure History 74 year old female with past medical history of depression, hypertension, SSS s/p PPM, pancreatic cancer, migraines, SHELL and medically intractable focal epilepsy, s/p right temporal lobectomy 08/16/2015 (pathology: MUSHTAQ / FCD) and s/p lumbar laminectomy in 07/2023. At [facility] in Dec 2023, ZNS was increased to 300mg qHS. No seizures since. Continues on Keppra 750mg BID, no side effects. Endorses she will be seeing a kidney specialist soon, BMP from April shows elevated creat (1.60) and a GFR of 32. She plans to see spine next week as a follow up from her surgery. CURRENT OUTPATIENT ANTISEIZURE MEDICATIONS (as of the start of the encounter) zonisamide (ZONEGRAN) 100 mg capsule (Taking) Take 3 capsules by mouth daily at bedtime. levETIRAcetam (KEPPRA) 750 mg tablet (Taking) Take 1 tablet by mouth two times a day. Prior Anti-seizure Therapies: Trial Adequacy: Max Daily Dose Achieved: Side Effects: Effectiveness: Comments: Gabapentin Levetiracetam Zonisamide Comorbidities: Episode Description: Patient Entered Data: EPILEPSY SCORE 12/22/2023 10:41 AM 12/22/2023 10:21 AM 09/08/2022 9:30 AM First answer obtained - 11/20/2019 11:07 PM PHQ-9 SCORE 13 [Moderate Depression] - 10 [Moderate Depression] - FANTA 2 SCORE 2 [Negative Anxiety Screen] - 3 [Positive Anxiety Screen] - FANTA 7 SCORE - - 8 [Mild Anxiety Disorder] - QOLIE-10 SCORE (0=worst; 100=best QoL - higher scores represent better function) 24 - 20 - LSSS SCORE (0- no seizures 100- most severe possible seizures) - - - - C-SSRS SCREEN - - - - On average, how many hours of sleep do you get in a 24-hour period? 10 - - - PROMIS Sleep Disturbance T-SCORE - 47 [within normal limits] - 54 [within normal limits] Have you been diagnosed with Sleep Apnea? 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 Developmental Delay Unanswered Family history of seizures Unanswered Febrile Seizure Unanswered Complications Unanswered Stroke No Traumatic Brain Injury Unanswered Previous Epilepsy Evaluations Date: 01 Nov 2018 Duration: 24 minutes Requested by: Alejandro Villar History synopsis 68 yo patient with past medical history of anxiety, chronic intractable migraines, asthma, obstructive sleep apnea, hypertension, irritable bowel syndrome, epilepsy, degenerative joint disease, depression, and right leg DVT.She has been seizure free since her right frontal lobectomy in August 2015 but she has been experiencing eugenie vu auras. EEG ordered for follow up and possible seizure. Classification Abnormal III (Awake, Drowsy, 10-20 Scalp Electrodes, Anterior temporal electrodes, Standard electrodes) 1 Continuous Slow, Regional Right fronto-temporal 2 Asymmetry, Increased Beta Right fronto-temporal Impression This EEG is suggests cortical dysfunction and increased beta in the right fronto-temporal region consistent with the patient's history of a prior craniotomy and resection in this region. No clear epileptiform discharges or EEG seizures were seen during this recording. Contains abnormal data ALL BASIC METABOLIC PANEL Component Ref Range AND Units 1 mo ago SODIUM 136 - 145 mmol/L 140 POTASSIUM 3.5 - 5.1 mmol/L 4.4 CHLORIDE 98 - 107 mmol/L 108 High CARBON DIOXIDE 21.0 - 32.0 mmol/L 26.2 ANION GAP 10.2 GLUCOSE 74 - 106 mg/dL 103 BLOOD UREA NITROGEN 7.0 - 18.0 mg/dL 24.0 High CREATININE 0.55 - 1.02 mg/dL 1.60 High TBH EGFR-AF CHADIAN >=60 38 Low TBH EGFR-NON AF CHADIAN >=60 32 Low BUN CREATININE RATIO 15.0 CALCIUM 8.5 - 10.1 mg/dL 8.4 Low 05/05/24 Other caregivers: Primary Care Provider: Broderick Howard, DO Current Outpatient Medications Medication Sig - zonisamide (ZONEGRAN) 100 mg capsule Take 3 capsules by mouth daily at bedtime. - levET (more content not included)... [facility] 06-29-2024 History of Presen t illness Narrative [facility] Patient Name: Cassi Rodrigez Date of : 1950 ESTABLISHED EPILEPSY CLINIC NOTE 06/29/2024 1:00 PM Reason for Visit: Epilepsy Clinical Summary: Ms. Rodrigez is a 74 year old female seen in [facility]. Classification Summary HISTORY OF PRESENT ILLNESS Handedness: Age of onset: Seizure History and Evolution SEIZURE HISTORY: -Onset: Her initial seizure per and patient described as starting with a eugenie vu feeling followed by, eyes shut, and passing out. She would be unresponsive during this time. Started on Keppra w/o benefit and Zonegran added thereafter. Keppra and Zonegran are the only AEDs patient has been on with exception of Lyrica (for pain). She continues to have these though last was several years ago. Only has ever had 1 GTC in 2004 while in bed out of sleep; no clear triggers, unprovoked. Interval Seizure History 74 year old female with past medical history of depression, hypertension, SSS s/p PPM, pancreatic cancer, migraines, SHELL and medically intractable focal epilepsy, s/p right temporal lobectomy 08/16/2015 (pathology: MUSHTAQ / FCD) and s/p lumbar laminectomy in 07/2023. At [facility] in Dec 2023, ZNS was increased to 300mg qHS. No seizures since. Continues on Keppra 750mg BID, no side effects. Endorses she will be seeing a kidney specialist soon, BMP from April shows elevated creat (1.60) and a GFR of 32. She plans to see spine next week as a follow up from her surgery. CURRENT OUTPATIENT ANTISEIZURE MEDICATIONS (as of the start of the encounter) zonisamide (ZONEGRAN) 100 mg capsule (Taking) Take 3 capsules by mouth daily at bedtime. levETIRAcetam (KEPPRA) 750 mg tablet (Taking) Take 1 tablet by mouth two times a day. Prior Anti-seizure Therapies: Trial Adequacy: Max Daily Dose Achieved: Side Effects: Effectiveness: Comments: Gabapentin Levetiracetam Zonisamide Comorbidities: Episode Description: Patient Entered Data: EPILEPSY SCORE 12/22/2023 10:41 AM 12/22/2023 10:21 AM 09/08/2022 9:30 AM First answer obtained - 11/20/2019 11:07 PM PHQ-9 SCORE 13 [Moderate Depression] - 10 [Moderate Depression] - FANTA 2 SCORE 2 [Negative Anxiety Screen] - 3 [Positive Anxiety Screen] - FANTA 7 SCORE - - 8 [Mild Anxiety Disorder] - QOLIE-10 SCORE (0=worst; 100=best QoL - higher scores represent better function) 24 - 20 - LSSS SCORE (0- no seizures 100- most severe possible seizures) - - - - C-SSRS SCREEN - - - - On average, how many hours of sleep do you get in a 24-hour period? 10 - - - PROMIS Sleep Disturbance T-SCORE - 47 [within normal limits] - 54 [within normal limits] Have you been diagnosed with Sleep Apnea? 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 Developmental Delay Unanswered Family history of seizures Unanswered Febrile Seizure Unanswered Complications Unanswered Stroke No Traumatic Brain Injury Unanswered Previous Epilepsy Evaluations Date: 01 Nov 2018 Duration: 24 minutes Requested by: Alejandro Villar History synopsis 68 yo patient with past medical history of anxiety, chronic intractable migraines, asthma, obstructive sleep apnea, hypertension, irritable bowel syndrome, epilepsy, degenerative joint disease, depression, and right leg DVT.She has been seizure free since her right frontal lobectomy in August 2015 but she has been experiencing eugenie vu auras. EEG ordered for follow up and possible seizure. Classification Abnormal III (Awake, Drowsy, 10-20 Scalp Electrodes, Anterior temporal electrodes, Standard electrodes) 1 Continuous Slow, Regional Right fronto-temporal 2 Asymmetry, Increased Beta Right fronto-temporal Impression This EEG is suggests cortical dysfunction and increased beta in the right fronto-temporal region consistent with the patient's history of a prior craniotomy and resection in this region. No clear epileptiform discharges or EEG seizures were seen during this recording. Contains abnormal data ALL BASIC METABOLIC PANEL Component Ref Range & Units 1 mo ago SODIUM 136 - 145 mmol/L 140 POTASSIUM 3.5 - 5.1 mmol/L 4.4 CHLORIDE 98 - 107 mmol/L 108 High CARBON DIOXIDE 21.0 - 32.0 mmol/L 26.2 ANION GAP 10.2 GLUCOSE 74 - 106 mg/dL 103 BLOOD UREA NITROGEN 7.0 - 18.0 mg/dL 24.0 High CREATININE 0.55 - 1.02 mg/dL 1.60 High TBH EGFR-AF CHADIAN >=60 38 Low TBH EGFR-NON AF CHADIAN >=60 32 Low BUN CREATININE RATIO 15.0 CALCIUM 8.5 - 10.1 mg/dL 8.4 Low 05/05/24 Other caregivers: Primary Care Provider: Broderick Howard, DO Current Outpatient Medications Medication Sig zonisamide (ZONEGRAN) [...] No current facility-administered medications for this visit. ALLERGIES Allergen Reactions Lyrica [Pregabalin] Rash Dexamethasone Rash PAST MEDICAL HISTORY No date: Asthma, chronic No date: Depression No date: DJD (degenerative joint disease) No date: HTN (hypertension) No date: IBS (irritable bowel syndrome) No date: SHELL (obstructive sleep apnea) No date: Reflux 03/09/2013: Right leg DVT (HCC) No date: Seizure (HCC) No date: Seizures (HCC) PAST SURGICAL HISTORY No date: ANTERIOR INTERBODY FUSION, CERVICAL No date: APPENDECTOMY No date: CHOLECYSTECTOMY 08/16/15: PAST SURGICAL HISTORY OF Comment: right frontal lobectomy FAMILY HISTORY Problem Relation Age of Onset other (Liver Ca[other]) Father Breast Cancer Sister No Ocular Disease Other SOCIAL HISTORY: -Lives in [place], [place] Review of Systems all other review of systems are negative VITAL SIGNS: BP 133/72 Pulse 85 Ht 157.5 cm (5' 2 ) Wt 85.4 kg (188 lb 4.4 oz) BMI 34.44 kg/m General Examination: General: Awake, alert, interactive, no acute distress, good nutritional status, normal development, well-kept Neurological Exam Mental Status Alert, fully oriented, attentive Cranial Nerves Pupils reactive. Extraocular movements conjugate and full. No ptosis. No nystagmus. Facial sensation intact. Face symmetric and strong. Palate and tongue normal. XI normal. IMPRESSION: Interval Impression: 74 year old female with past medical history of depression, hypertension, SSS s/p PPM, pancreatic cancer, migraines, SHELL and medically intractable focal epilepsy, s/p right temporal lobectomy 08/16/2015 (pathology: MUSHTAQ / FCD) and s/p lumbar laminectomy in 07/2023. At [facility] in Dec 2023, ZNS was increased to 300mg qHS. No seizures since. Continues on Keppra 750mg BID, no side effects. Endorses she will be seeing a kidney specialist soon, BMP from April shows elevated creat (1.60) and a GFR of 32. She plans to see spine next week as a follow up from her surgery. PLAN: - Follow up in 6 months - Continue on ZNS 300mg qHS and Keppra 750mg BID - CMP and LEV level ordered - Patient has refills available Data reviewed as above including: outside records, electronic medical record Testing Ordered CMP anticonvulsant level Education The following issues were discussed with the patient on this visit and written instructions provided as below- Seizure precautions and safety, seizure first aide, when to seek emergency care. Counseling was provided to the patient that missed medications, addition of some new medications, use of alcohol or other substances, and sleep deprivation can lower the seizure threshold. Patient was given my clinic contact information. Medical Management Continue current medications. Prescriptions not needed at this time. I discussed the risks, benefits and alternatives of the medical plan with the patient. Questions were answered. The patient agreed with the plan as discussed. FOLLOW-UP: Return in about 6 months (around 12/30/2024). I spent a total of 30 minutes on the date of the service which included: preparing to see the patient [id number] patient care completing clinical documentation obtaining and/or reviewing separately obtained history performing a medically appropriate examination Alejandro Villar MD, PhD cc: Primary Care Physician: Broderick Howard, DO [address] [facility] [id number] Referring: Patient: Ms. Cassi Rodrigez [id number] [facility] [address] documented in this encounter [facility] 05-23-2024 Nurse Note Patient name and confirmed. Patient states she would like to receive Botox treatment today. 2 vials of Botox A (100 units in each) reconstituted with 2.2 cc of normal saline in each vial. Botox drawn up into four, 1 cc syringes. Each syringe containing 50 units of Botox. Assisted by: Diann VARELA Botox, 2 vials: Lot # [id number] Exp Lot # [id number] Exp Botox handed to Dr. Reilly to administer and verified order. [facility] 05-23-2024 Nurse Note Patient name and confirmed. Patient states she would like to receive Botox treatment today. 2 vials of Botox A (100 units in each) reconstituted with 2.2 cc of normal saline in each vial. Botox drawn up into four, 1 cc syringes. Each syringe containing 50 units of Botox. Assisted by: Diann VARELA Botox, 2 vials: Lot # [id number] Exp 08 Lot # [id number] Exp Botox handed to Dr. Reilly to administer and verified order. documented in this encounter [facility] 05-23-2024 Note HNO ID: [id number] Author: RANDA REILLY MD Service: ? Author Type: Physician Type: Procedures Filed: 05/23/2024 12:54 Note Text: BOTOX PROCEDURE NOTE Responsible practitioner performing the [...] Injection Sites Muscle Fixed Site/Fixed Dose Bilat Methods Examiner 20 U divided in 2 sites Procerus [...] Total Units wasted: 0 Randa Reilly MD [facility] 05-23-2024 Procedure note BOTOX PROCEDURE NOTE Responsible [...] Injection Sites Muscle Fixed Site/Fixed Dose Bilat Methods Examiner 20 U divided in 2 sites Procerus [...] Total Units wasted: 0 Randa Reilly MD [facility] [place] [facility] 05-23-2024 Procedure note BOTOX PROCEDURE NOTE Responsible [...] procedure note Treatment # 1 Consent in [facility] Dilution: 5 units/0.1 ml ( 100 unit vial with 2 cc diluent or 200 unit vial with 4 cc diluent) Diluent: normal saline Indication: Chronic Intractable Migraine Right temporal metal plate with skin irregularity, no shunt Injection Sites Muscle Fixed Site/Fixed Dose Bilat Methods Examiner 20 U divided in 2 sites Procerus [...] Total Units wasted: 0 Randa Reilly MD [facility] documented in this encounter [facility] 03-15-2024 Note DUAL CHAMBER PACEMAK ER REMOTE [...] Documents section. [facility] 03-07-2024 Note HNO ID: [id number] Author: RANDA REILLY MD Service: ? Author Type: Physician Type: Progress Notes Filed: 03/07/2024 13:16 Note Text: PROGRESS NOTE- [facility] DATE: March 07, 2024 Location: [facility] Participants: patient, and provider HPI: Here for [...] I spent at least 50% of the [id number] time in counseling, explanation of diagnosis, planning of further management, and answering all questions. Randa Reilly MD [facility] 03-07-2024 History of Presen t illness Narrative PROGRESS NOTE- [facility] SERVICE DATE: March 07, 2024 Location: [facility] Participants: patient, and provider [...] I spent at least 50% of the ylgs-jj-flgs time in counseling, explanation of diagnosis, planning of further management, and answering all questions. Randa Reilly MD [facility] Neurological [place] documented in this encounter [facility] 12-23-2023 Instructions Lauren Otero APRN.CNP - 12/23/2023 9:42 AM EST To schedule with headache clinic (can schedule at [facility]): [phone] documented in this encounter [facility] 12-23-2023 History of Presen t illness Narrative [facility] CHIEF COMPLAINT: Patient presents [...] There is no focal weakness. PREVIOUS EVALUATIONS: [facility], 05/2015: Right Temporal Epilepsy Seizures: Aura -> [...] 2023 documented in this encounter [facility] 12-23-2023 Note HNO ID: [id number] Author: ALEJANDRO VILLAR MD, PhD Service: ? Author Type: Physician Type: Progress Notes Filed: 12/23/2023 13:37 Note Text: [facility] CHIEF COMPLAINT: Patient presents [...] There is no focal weakness. 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 Intermittent Slow, Regional Right temporal Ictal (more content not included)... [facility] 11-24-2023 Evaluation note Encounter Date Diagnosis Assessment Notes Nov, Acute non-recurrent maxillary sinusitis (ICD-10 - J01.00) Instructed to use Robitussin or Mucinex for cough, saline or Flonase NS for congestion, Tylenol for pain and fever. Nov, Primary hypertension (ICD-10 - I10) Increased risk for more serious, prolonged illness. [employer] Other [id number] Miscellaneous Notes* Telephone Encounter - Mirian Bell APRN.CNP - 09/13/2023 1:53 PM EDT Thank you reviewed scan documents. Mirian Bell APRN.CNP * Telephone Encounter - Brenda Hodges RN - 09/13/2023 7:58 AM EDT Received medical records from [facility] and scanned into chart for review. documented in this encounterC[facility] Miscellaneous Notes* Telephone Encounter - Daniel [...] Please E-Scribe Caller Contact Number: Pharmacy Name: [facility] Pharmacy Number: [phone] Generic/ brand: 30 or 90 day supply requested: 90 Last appointment: 09/10/22 Next Appointment: 12/09/[address] Villar documented in this encounterC[facility]-2023 NoteHNO ID: [id number] Author: Mirian Bell APRN.CNP Service: ? Author Type: Nurse Practitioner Type: Progress Notes Filed: 09/08/2023 3:29 PM Note Text: Heart and Vascular [place] Guy Renteria Department of Cardiovascular Medicine SECTION OF CARDIAC PACING and ELECTROPHYSIOLOGY OUTPATIENT VISIT DATE September 08, 2023 OUTPATIENT VISIT TYPE ESTABLISHED PRIMARY CARE PHYSICIAN: Broderick Howard (Zack) [address] [place] [address] CHIEF COMPLAINT: follow up device management HISTORY [...] right leg DVT (2012), seizure, SHELL, IBS, prison anticoagulation. Moderate functional capacity (active with ADL, [...] in INCHES 64 in. (more content not included)...[facility] 09-08-2023 Instructions* Patient Instructions* Mirian Bell APRN.NIC - 09/08/2023 3:21 PM EDT Please schedule for device check & in one year Please have patient sign release of medical labs [facility] had labs last month documented in this encounterC[facility]10-[facility]23 History of Present illness Narrative* Mirian Bell APRN.CNP - 09/08/2023 2:30 PM EDT Images from the original note were not included. [facility] [place] Guy Renteria Department of Cardiovascular Medicine SECTION OF CARDIAC PACING and ELECTROPHYSIOLOGY OUTPATIENT VISIT DATE September 08, 2023 OUTPATIENT VISIT TYPE ESTABLISHED PRIMARY CARE PHYSICIAN: Broderick Howard ([facility]) [address] [place] [address] CHIEF COMPLAINT: follow up device management HISTORY [...] right leg DVT (2012), seizure, SHELL, IBS, prison anticoagulation. Moderate functional capacity (active with ADL, [...] 09-08-2023 Dual chambered pacer EVALUATION PRESENTS FOR: ROLL SCALE MAN visit PRESENTING EGM: AP/VS UNDERLYING RHYTHM: BATTERY [...] 4. Annual labs, I will obtain from [facility] she had last month Follow up appointment: Dr. Garner & device check in one year I spent 25 to 30 minutes in the visit, with more than 50% of the total imti-pf-skdi time of the visit in counseling / coordination of care. CONTACT INFORMATION: Mirian Bell APRN.CNP, 09/08/23 [facility] Cardiology Second Floor [address] [facility] [place], [place] [id number] documented in this encounterCleveland [facility]10-11-2023 Evaluation note* Encounter Date Diagnosis Assessment Notes Treatment Notes Treatment Clinical Notes Aug, Lumbar stenosis with neurogenic claudication (ICD-10 - M48.062) [employer] [facility] [employer] Other 10-02-2023 Evaluation note* Encounter Date Diagnosis Assessment Notes Treatment Notes Treatment Clinical Notes Aug, Lumbar stenosis with neurogenic claudication (ICD-10 - M48.062) [employer] Other 09-28-2023 Evaluation note* Encounter Date Diagnosis Assessment Notes Treatment Notes Treatment Clinical Notes Jul, Lumbar stenosis with neurogenic claudication (ICD-10 - M48.062) [employer] Other 09-20-2023 Progress note Author Niki Weeks [facility] August 04, 2023 7:57am Note Date/Time August 04, 2023 7:57am [facility] [address] [place] [address] Neurosurgery Progress Note Signed Patient: Cassi Rodrigez MR#: [id number] : 1950 Acct:[id number] Age/Sex: 73 / F Adm Date: 3 Loc: 4N Room: 2X2276-4 Type: REG SDC Attending Dr: Niki Weeks [...] % (Auto) 91.6, Lymph % (Auto) 4.4, O'Brien % (Auto) 4.0, Eos % (Auto) 0.0, Baso % (Auto) 0.0, Nucleat RBC Rel Count 0.1, Neut # (Auto) 10.4 H, Lymph #(Auto) 0.5 L, O'Brien # (Auto) 0.5, Eos # (Auto) 0.0, [...] Spent With Patient (min): 30 Documented By: Nkii Weeks MD 08/04/23 075 2 Signed By: <Electronically signed by Niki Weeks MD> 08/04/23 0757 [facility] Work Phone: [phone] Evaluation note* Encounter Date Diagnosis Assessment Notes Treatment Notes Treatment Clinical Notes Jun, Lumbar stenosis with neurogenic claudication (ICD-10 - M48.062) [employer] Other 06-22-2023 Evaluation note* Encounter Date Diagnosis [...] will continue with this therapy without change. [employer] Other 06-19-2023 Evaluation note* Encounter Date Diagnosis Assessment Notes Treatment Notes Treatment Clinical Notes Apr, Lumbosacral spondylosis with radiculopathy (ICD-10 - M47.27) [employer] Other 06-19-2023 Evaluation note* Encounter Date Diagnosis [...] until MRI completed MRI being rescheduled for [facility] due to PM Apr, Stage 3b chronic kidney disease (ICD-10 - N18.32) The patient is instructed on adequate control of hypertension and diabetes, if appropriate. They are also educated on the associated risks of NSAIDs and PPI use with kidney disease. They were instructed on adequate fluid balance and to avoid dehydration. Apr, History of lumbar fusion (ICD-10 - Z98.1) [employer] Other 05-15-2023 Evaluation note* Encounter Date Diagnosis Assessment Notes Treatment Notes Treatment Clinical Notes March, Lumbosacral spondylosis with radiculopathy (ICD-10 - M47.27) [employer] Other 05-11-2023 Evaluation note* Encounter Date Diagnosis [...] use, the patient reduces the risk for PA, CVA, HTN, cardiac dysrhythmias and sudden cardiac [...] Other Stable w/o breakthrough Sz. 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 Continue surveillance w/ [employer] Other 2023 Evaluation note* Encounter Date Diagnosis Assessment Notes Treatment Notes Treatment Clinical Notes Jan, Nausea (ICD-10 - R11.0) [employer] Other 02-23-2023 Evaluation note* Encounter Date Diagnosis Assessment Notes Treatment Notes Treatment Clinical Notes Dec, Nausea (ICD-10 - R11.0) Increase Amitriptyline to 15mg at bedtime Dec, Constipation (ICD-10 - K59.00) Start Linzess 72mcg daily Pt to call if symptoms worsen or return Follow up in 4 months [employer] Other 01-11-2023 Evaluation note* Encounter Date Diagnosis [...] use, the patient reduces the risk for PA, CVA, HTN, cardiac dysrhythmias and sudden cardiac [...] to trial Amitiza and discuss w/ GI [employer] Other 10-27-2022 History of Present illness Narrative* Lauren Otero APRN.NIC - 09/10/2022 1:53 PM EDT [facility] CHIEF COMPLAINT: Patient presents [...] There is no focal weakness. PREVIOUS EVALUATIONS: [facility], 05/2015: Right Temporal Epilepsy Seizures: Aura -> [...] at patient management conference were Chito Matias, Jose Rafael, Kalyan, and myself (Dr. Larkin). The group [...] Alejandro Villar. documented in this encounterC[facility]09-08-2022 History of Present illness Narrative* Kitty Vidal MD - 07/23/2022 10:00 AM EDT Images from the original note were not included. Heart and Vascular [place] Guy Renteria Department of Cardiovascular Medicine SECTION OF CARDIAC PACING and ELECTROPHYSIOLOGY OUTPATIENT VISIT DATE July 23, 2022 OUTPATIENT VISIT TYPE ESTABLISHED PRIMARY CARE PHYSICIAN: Broderick Howard MD ([facility]) [address] [place], [place] [id number] CHIEF COMPLAINT: Pacemaker management HISTORY OF PRESENT [...] Lymph 1.00 - 4.00 k/uL 0.93 (L) O'Brien% % 7.7 Abs O'Brien <0.87 k/uL 0.32 Eosin% % 5.3 Abs [...] MD Electrophysiology documented in this encounterC[facility]02-22-2022 Evaluation note* Encounter Date Diagnosis Assessment Notes Treatment Notes Treatment Clinical Notes Dec, Nausea (ICD-10 - R11.0) PATIENT STATES THAT THIS HAS IMPROVED. PATIENT TO CONTINUE ON THE AMITRIPTYLINE DOSE AT THIS TIME. [employer] Other 03-12-2015 History of Past illness Narrative* Problem Noted Date Resolved Date Seizure 01/24/2015 06/21/2018 documented as of this encounter (statuses as of 07/23/2022) [facility] History of Past illness Narrative* Problem Noted Date Resolved Date Seizure 01/24/2015 06/21/2018 documented as of this encounter (statuses as of 08/26/2022) [facility] History of Past illness Narrative* Problem Noted Date Resolved Date Seizure 01/24/2015 06/21/2018 documented as of this encounter (statuses as of 09/10/2022) [address]-2015 History of Past illness Narrative* Problem Noted Date Resolved Date Seizure 01/24/2015 06/21/2018 documented as of this encounter (statuses as of 11/26/2022) [address]2015 History of Past illness Narrative* Problem Noted Date Resolved Date Seizure 01/24/2015 06/21/2018 documented as of this encounter (statuses as of 02/25/2023) [address]2015 History of Past illness Narrative* Problem Noted Date Diagnosed Date Resolved Date Seizure 01/24/2015 06/21/2018 documented as of this encounter (statuses as of 06/17/2023) [address]2015 History of Past illness Narrative* Problem Noted Date Diagnosed Date Resolved Date Seizure 01/24/2015 06/21/2018 documented as of this encounter (statuses as of 09/08/2023) [address]2015 History of Past illness Narrative* Problem Noted Date Diagnosed Date Resolved Date Seizure 01/24/2015 06/21/2018 documented as of this encounter (statuses as of 09/09/2023) [address]2015 History of Past illness Narrative* Problem Noted Date Diagnosed Date Resolved Date Seizure 01/24/2015 06/21/2018 documented as of this encounter (statuses as of 09/14/2023) [address] History of Past illness Narrative* Problem Noted Date Diagnosed Date Resolved Date Seizure 01/24/2015 06/21/2018 documented as of this encounter (statuses as of 09/14/2023) [address] History of Past illness Narrative* Problem Noted Date Diagnosed Date Resolved Date Seizure 01/24/2015 06/21/2018 documented as of this encounter (statuses as of 12/23/2023) [facility] Hospital[facility] summary Author Niki Weeks [facility] August 05, 2023 8:09am Note Date/Time August 05, 2023 8:09am [facility] [address] [place], [place] [address] Discharge Summary Signed Patient: Cassi Rodrigez MR#: [id number] : 1950 Acct:[id number] Age/Sex: 73 / F Adm Date: 3 Loc: 4N Room: 2R5247-[address]: Niki Weeks MD Copies to: Broderick Howard,DO Niki Weeks MD~ Providers Date of Discharge: 08/05/23 Discharging [...] % (Auto) 77.1, Lymph % (Auto) 11.8, O'Brien % (Auto) 9.2, Eos % (Auto) 1.7, Baso % (Auto) 0.2, Nucleat RBC Rel Count 0.4, Neut # (Auto) 5.6, Lymph # (Auto) 0.9 L, O'Brien # (Auto) 0.7, Eos # (Auto) 0.1, [...] signed by Niki Weeks MD> 08/05/23 0809 [facility] Work Phone: Evaluation note* Diagnosis Chronic fatigue- Primary Other malaise and fatigue documented in this encounter [facility]* Diagnosis Partial epilepsy with impairment of consciousness, intractable (HCC) Localization-related (focal) (partial) epilepsy and epileptic syndromes with complex partial seizures, with intractable epilepsy documented in this encounter [facility] HospitalEvaluation noteNo assessment information [facility] Work Phone: Evaluation noteNo InformationNoexcelsior springs [facility] [employer] Other evaluation note* Diagnosis Onset Date Resolution Status Lumbar stenosis with neurogenic claudication acute [facility] Work Phone: Evaluation note* Diagnosis Sinus node dysfunction (HCC)- Primary Sinoatrial node dysfunction Cardiac pacemaker in situ Bradycardia Other specified cardiac dysrhythmias documented in this encounter [facility]* Diagnosis Partial epilepsy with impairment of consciousness, intractable (HCC) Localization-related (focal) (partial) epilepsy and epileptic syndromes with complex partial seizures, with intractable epilepsy documented in this encounter [facility]* Diagnosis Pacemaker [Z95.0]- Primary Cardiac pacemaker in situ documented in this encounter [facility]* Diagnosis Intractable 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 aura and without status migrainosus- Primary Chronic migraine without aura, with intractable migraine, so stated, without mention of status migrainosus documented [facility] this encounter [facility]* Diagnosis Intractable 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 aura and without status migrainosus- Primary Chronic migraine without aura, with intractable migraine, so stated, without mention of status migrainosus Cervicalgia SHELL (obstructive sleep apnea) Obstructive sleep apnea (adult) (pediatric) documented in this encounter [facility]* Diagnosis Onset Date Resolution Status Hypertension acute Lumbar stenosis with neurogenic claudication [facility] Work Phone: Evaluation note* Diagnosis Onset Date Resolution Status Hypertension acute Lumbar stenosis with neurogenic claudication acute Age-related osteoporosis wit hout current pathological fracture acute Chronic kidney disease acute Hypertension acute Lumbosacral spondylosis with radiculopathy acute Obstructive sleep apnea acut e [facility] Work Phone: Evaluation note* Diagnosis Intractable 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 aura and without status migrainosus- Primary Chronic migraine without aura, with intractable migraine, so stated, without mention of status migrainosus documented in this encounter [facility]* Diagnosis Onset Date Resolution Status Age-related osteoporosis wit hout current pathological fracture acute Chronic kidney disease acute Hypertension acute Lumbosacral spondylosis with radiculopathy acute Obstructive sleep apnea acut e Arthropathy of right hip acu te Greater trochanteric bursitis of both hips acute History of lumbar surgery ac [place] Pain of both sacroiliac joints [facility] Work Phone: Evaluation note* Diagnosis Onset Date Resolution Status Age-related osteoporosis wit hout current pathological fracture acute Chronic kidney disease acute Hypertension acute Lumbosacral spondylosis with radiculopathy acute Obstructive sleep apnea acut e Arthropathy of right hip acu te Greater trochanteric bursitis of both hips acute History of lumbar surgery [place] Pain of both sacroiliac joints acute Anemia of renal disease acut e Chronic kidney disease acute [id number] acute Leukopenia acute Pancreatic cancer acute Secondary hyperparathyroidism acute Vitamin D deficiency acute [facility] Work Phone: Evaluation note* Diagnosis Onset Date Resolution Status Age-related osteoporosis wit hout current pathological fracture acute Chronic kidney disease acute Hypertension acute Lumbosacral spondylosis with radiculopathy acute Obstructive sleep apnea acut e Arthropathy of right hip acu te Greater trochanteric bursitis of both hips acute History of lumbar surgery [place] Pain of both sacroiliac joints acute Anemia of renal disease acut e CKD (chronic kidney disease) stage 4, GFR 15-29 ml/min acute [id number] acute Leukopenia acute Secondary hyperparathyroidism acute Age-related osteoporosis wit hout current pathological fracture acute Chronic kidney disease acute Gastroesophageal reflux dise ase with esophagitis without hemorrhage acute History of pancreatic cancer acute Hypertension acute Lumbar stenosis with neurogenic claudication acute Major depression acute Medicare annual wellness visit, subsequent noneactive Screening mammogram for breast cancer noneactive [facility] Work Phone: Evaluation note* Diagnosis Focal epilepsy with impairment of consciousness, intractable (HCC)- Primary Localization-related (focal) (partial) epilepsy and epileptic syndromes with simple partial seizures, with intractable epilepsy Partial epilepsy with impairment of consciousness, intractable (HCC) Localization-related (focal) (partial) epilepsy and epileptic syndromes with complex partial seizures, with intractable epilepsy documented in this encounter [facility] Hospital[facility] general Narrative - Reported* Type Description Date Surgical History back surgery-2 Surgical History cervical fusion Surgical History cholecystectomy Surgical History whipple procedure 2011 Surgical History appendectomy Surgical History hammer toe Surgical History rotator cuff-left Surgical History temporal lumpectomy Hospitalization History see surgical hx [employer] Other History general Narrative - Reported* Type [...] Essential hypertension Medical History Current use of prison anticoa gulation Medical History History of pancreatic [...] temporal lumpectomy Hospitalization History see surgical hx [employer] Other History general Narrative - Reported* Type [...] apnea Medical History Encounter for [facility] [place] exam with routine gynecological exam [...] Essential hypertension Medical History Current use of prison anticoa gulation Medical History History of pancreatic [...] Port removal Hospitalization History see surgical hx [employer] Other History general Narrative - Reported* Type [...] apnea Medical History Encounter for [facility] [place] exam with routine gynecological exam [...] Essential hypertension Medical History 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 Medical History History of pancreatic [...] L4-5 07/2023 Hospitalization History see surgical hx [employer] Other Hospital Discharge instructions Additional Instructions [facility] a well [facility] Work Phone: Hospital Discharge instructionsAmbulatory Orders* Referral to Orthopedic Surgery Location: None Selected [facility] Work Phone: Progress note Author Niki Weeks [facility] August 05, 2023 8:00am Note Date/Time August 05, 2023 8:00am [facility] [address] [place] [address] Neurosurgery Progress Note Signed Patient: Cassi Rodrigez MR#: [id number] : 1950 Acct:[id number] Age/Sex: 73 / F Adm Date: 3 Loc: 4N Room: [address] [place] [address] Type: REG SDC Attending Dr: Niki Weeks [...] % (Auto) 77.1, Lymph % (Auto) 11.8, O'Brien % (Auto) 9.2, Eos % (Auto) 1.7, Baso % (Auto) 0.2, Nucleat RBC Rel Count 0.4, Neut # (Auto) 5.6, Lymph # (Auto) 0.9 L, O'Brien # (Auto) 0.7, Eos # (Auto) 0.1, [...] (min): 20 Documented By: Niki Weeks MD 09/21/23 075 5 Signed By: <Electronically signed by Niki Weeks MD> 08/05/23 0800 [facility] Work Phone: Reason for referral (narrative)* Outpatient Procedure (Routine) - Closed Specialty Diagnoses / Procedures Referred By Contac t Referred To Contact [facility] [place] Diagnoses Chronic fatigue Procedures ECG COMPLETE ECG ROUTINE ECG W/LEAST 12 LDS W/I&[place] [address] [place] [address] [facility] [place] [address] [place] [address] Referral ID Status Reason Start Date Expiration Date V isits Requested Visits Authorized [id number] Closed Auto-Generate d Referral 07/23/2022 07/23/2023 1 1 [facility] for referral (narrative)* Outpatient Procedure (Routine) - Pending Review Specialty Diagnoses / Procedures Referred By Contac t Referred To Contact [facility] [place] Diagnoses Sinus node dysfunction (HCC) Cardiac pacemaker in situ Bradycardia Procedures ECG COMPLETE ECG ROUTINE ECG W/LEAST 12 LDS W/I&R Mirian Bell APRN.CNP [address] [place] [address] [facility] [address] [place] [address] Referral ID Status Reason Start Date Expiration Date Visits Requested Visits Authorized [id number] Pending Review Auto-Generat ed Referral 3 09/07/2024 1 1 [facility] Summary Purpose Family History No Family [...] Chief Complaint Cough , Drainage For Weeks [phone] BACK ISSUES Chief Complaint BACK ISSUES Amb [...] Anemia of renal disease Chronic kidney disease [id number] Leukopenia Pancreatic cancer Secondary hyperparathyroidism Vitamin D deficiency Chief Complaint 1 month increased pain as before surgery w/blades m54.16 RENAL CKD MAWV Reason for Visit Age-related osteopor osis without current pathological fracture Chronic kidney disease Hypertension Lumbosacral spondylosis with radiculopathy Obstructive sleep apnea Arthropathy of right hip Greater trochanteric bursitis of both hips History of lumbar surgery Pain of both sacroiliac joints Anemia of renal disease CKD (chronic kidney disease) stage 4, GFR 15-29 ml/min [id number] Leukopenia Secondary hyperparathyroidism Age-related osteoporosis without current pathological fracture Chronic kidney disease Gastroesophageal reflux disease with esophagitis without hemorrhage History of pancreatic cancer Hypertension Lumbar stenosis with neurogenic claudication Major depression Medicare annual wellness visit, subsequent Screening mammogram for breast cancer Reason for Referral Specialty Diagnoses / Procedures Referred By Contac t Referred To Contact [facility] [place] Diagnoses Cervicalgia Procedures CONSULT TO [facility] OFFICE/OUTPATIENT [facility] [address] [place] [address] [place] [id number] Referral ID Status Reason Start Date Expiration Date Visits Requested Visits Authorized [id number] Authorized PCP Requested Referral 03/07/2024 03/07/2025 1 1 Specialty Diagnoses / Procedures Referred By Contac t Referred To Contact Diagnoses SHELL (obstructive sleep apnea) Procedures CONSULT TO SLEEP MEDICINE - ADULT OFFICE/OUTPATIENT [facility] 60 [place] [address] [place] [address] Referral ID Status Reason Start Date Expiration Date Visits Requested Visits Authorized [id number] Authorized PCP Requested Referral 03/07/2024 03/07/2025 1 1 Specialty Diagnoses / Procedures Referred By Contac t Referred To Contact HEADACHE Diagnoses Intractable 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 aura and without status migrainosus Procedures CONSULT TO HEADACHE CLINIC OFFICE/OUTPATIENT [facility] 60 MINUTES Lauren Otero APRN.[employer] [address] [place] [address] Neur Headache Main [address] [place] [id number] Referral ID Status Reason Start Date Expiration Date Visits Requested Visits Authorized [id number] Authorized PCP Requested Referral 12/23/2023 12/22/2024 1 [...] migrainosus Procedures CONSULT TO HEADACHE CLINIC OFFICE/OUTPATIENT [facility] 60 MINUTES Lauren Otero, CONNIE.[employer] [address] [place] [address] Neur Headache Main [address] [place] [address] Referral ID Status Reason Start Date Expiration Date V isits Requested Visits Authorized [id number] Closed PCP Requested Referral 12/23/2023 12/22/2024 1 1 Reason Comments Established Patient botox Specialty Diagnoses / Procedures Referred By Contac t Referred To Contact ADULT NEUROLOGY Diagnoses Chronic migraine without aura, intractable, without status migrainosus Procedures BOTULINUM TOXIN A PER 1 UNIT CHEMODERVATE FACIAL/TRIGEM/[place] [address] [facility] [place] [address] Neur Adult [address]vw [address] [place] [address] Referral ID Status Reason Start Date Expiration Date V isits Requested Visits Authorized [id number] Authorized 03/13/2024 03/13/2025 4 4 Reason Comments Epilepsy Source Comments (unrecognize d section and content) In the event this informatio n is protected by the Federal Confidentiality of Alcohol and Drug Abuse Patient Records regulations: The Federal rules restrict any use of the information to criminally investigate or prosecute any alcohol or drug abuse patient.[facility] the event this information is protected by the Federal Confidentiality of Alcohol and Drug Abuse Patient Records regulations: The Federal rules restrict any use of the information to criminally investigate or prosecute any alcohol or drug abuse patient.[facility] the event this information is protected by the Federal Confidentiality of Alcohol and Drug Abuse Patient Records regulations: The Federal rules restrict any use of the information to criminally investigate or prosecute any alcohol or drug abuse patient.[facility] the event this information is protected by the Federal Confidentiality of Alcohol and Drug Abuse Patient Records regulations: The Federal rules restrict any use of the information to criminally investigate or prosecute any alcohol or drug abuse patient.[facility] the event this information is protected by the Federal Confidentiality of Alcohol and Drug Abuse Patient Records regulations: The Federal rules restrict any use of the information to criminally investigate or prosecute any alcohol or drug abuse patient.[facility] the event this information is protected by the Federal Confidentiality of Alcohol and Drug Abuse Patient Records regulations: The Federal rules restrict any use of the information to criminally investigate or prosecute any alcohol or drug abuse patient.[facility] the event this information is protected by the Federal Confidentiality of Alcohol and Drug Abuse Patient Records regulations: The Federal rules restrict any use of the information to criminally investigate or prosecute any alcohol or drug abuse patient.[facility] the event this information is protected by the Federal Confidentiality of Alcohol and Drug Abuse Patient Records regulations: The Federal rules restrict any use of the information to criminally investigate or prosecute any alcohol or drug abuse patient.[facility] the event this information is protected by the Federal Confidentiality of Alcohol and Drug Abuse Patient Records regulations: The Federal rules restrict any use of the information to criminally investigate or prosecute any alcohol or drug abuse patient.[facility] the event this information is protected by the Federal Confidentiality of Alcohol and Drug Abuse Patient Records regulations: The Federal rules restrict any use of the information to criminally investigate or prosecute any alcohol or drug abuse patient.[facility] the event this information is protected by the Federal Confidentiality of Alcohol and Drug Abuse Patient Records regulations: The Federal rules restrict any use of the information to criminally investigate or prosecute any alcohol or drug abuse patient.[facility] Hospital[facility] the event this information is protected by the Federal Confidentiality of Alcohol and Drug Abuse Patient Records regulations: The Federal rules restrict any use of the information to criminally investigate or prosecute any alcohol or drug abuse patient.[facility] Hospital[facility] the event this information is protected by the Federal Confidentiality of Alcohol and Drug Abuse Patient Records regulations: The Federal rules restrict any use of the information to criminally investigate or prosecute any alcohol or drug abuse patient.[facility] Hospital[facility] the event this information is protected by the Federal Confidentiality of Alcohol and Drug Abuse Patient Records regulations: The Federal rules restrict any use of the information to criminally investigate or prosecute any alcohol or drug abuse patient.[facility] Hospital[facility] the event this information is protected by the Federal Confidentiality of Alcohol and Drug Abuse Patient Records regulations: The Federal rules restrict any use of the information to criminally investigate or prosecute any alcohol or drug abuse patient.[facility] Care Teams (unrecognized sec tion and [...] March 09, 2024 End: March 09, 2024 Freight And Passenger Agent Relationship Specialty Start Date End Date Broderick Howard, DO [address] [place], [facility] PCP - General Internal Medicine 09/21/18 Kitty Valente MD [address] [place] [address] Primary Staff Physician Cardiology 01/31/19 Freight And Passenger Agent Relationship Specialty Start Date End Date Broderick Howard, DO [address] [place] [address] PCP - General Internal Medicine 09/21/18 Kitty Valente MD [address] [place] [place] [address] Primary Staff Physician Cardiology 01/31/19 Freight And Passenger Agent Relationship Specialty Start Date End Date Broderick Howard, DO [address] [place] [address] PCP - General Internal Medicine 09/21/18 Kitty Valente MD [address] [place] [address] Primary Staff Physician Cardiology 01/31/19 Freight And Passenger Agent Relationship Specialty Start Date End Date Broderick Howard, DO [address] [place] [address] PCP - General Internal Medicine 09/21/18 Kitty Valente MD [address] [place] [place] [address] Primary Staff Physician Cardiology 01/31/19 Freight And Passenger Agent Relationship Specialty Start Date End Date Broderick Howard DO [address] [place] [id number] PCP - General Internal Medicine 09/21/18 Kitty Valente MD [address] [facility] [address] Primary Staff Physician Cardiology 01/31/19 Team Status: Inactive Member Role Status Dates Broderick Howard DO Primary Care Provider, Attending Pr ovider Active Freight [employer] Passenger Agent Relationship Specialty Start Date End Date Broderick Howard DO [address] [id number] PCP - General Internal Medicine 09/21/18 Kitty Valente MD [address] [place] [address] Primary Staff Physician Cardiology 01/31/19 Team Status: Inactive Member Role Status Dates Broderick Howard DO Primary Care Provider Active Niki Weeks MD Attending Provider Active Freight And Passenger Agent Relationship Specialty Start Date End Date Broderick Howard DO [address] [place] [id number] PCP - General Internal Medicine 09/21/18 Kitty Valente MD [address] [facility] [address] Primary Staff Physician Cardiology 01/31/19 Freight And Passenger Agent Relationship Specialty Start Date End Date Broderick Howard DO [address] [place] [address] PCP - General Internal Medicine 09/21/18 Kitty Valente MD [address] [place] [address] Primary Staff Physician Cardiology 01/31/19 Freight And Passenger Agent Relationship Specialty Start Date End Date Broderick Howard DO [address] [place] [address] PCP - General Internal Medicine 09/21/18 Kitty Valente MD [address] [place] [address] Primary Staff Physician Cardiology 01/31/19 Freight And Passenger Agent Relationship Specialty Start Date End Date Broderick Howard DO [address] [place] [address] PCP - General Internal Medicine 09/21/18 Kitty Valente MD [address] [place] [address] Primary Staff Physician Cardiology 01/31/19 Freight And Passenger Agent Relationship Specialty Start Date End Date Broderick Howard DO [address] [place] [address] PCP - General Internal Medicine 09/21/18 Kitty Valente MD [address] [place] [address] Primary Staff Physician Cardiology 01/31/19 Team Status: Inactive Member Role Status Dates Broderick Howard DO Attending Provider Active Sta rt: November 24, 2023 End: November 24, 2023 Team Status: Inactive Member Role Status Dates Broderick Howard DO Primary Care Provide r, Attending Provider Active Start: February 09, 2024 End: February 09, 2024 Freight And Passenger Agent Relationship Specialty Start Date End Date Broderick Howard DO [address] [place] [address] PCP - General Internal Medicine 09/21/18 Kitty Valente MD [address] [place] [address] Primary Staff Physician Cardiology 01/31/19 Team Status: Active Member Role Status Dates Broderick Howard DO Primary Care Provide r, Attending Provider Active Start: February 10, 2024 Team Status: Active Member Role Status Dates Broderick Howard DO Primary Care Provider Active Start: February 15, 2024 HERSON Golden Attending Provider Active St art: February 15, 2024 Freight And Passenger Agent Relationship Specialty Start Date End Date Broderick Howard DO [address] [place] [id number] PCP - General Internal Medicine 09/21/18 Kitty Valente MD [address] [place] [address] Primary Staff Physician Cardiology 01/31/19 Freight And Passenger Agent Relationship Specialty Start Date End Date Broderick Howard DO [address] [id number] PCP - General Internal Medicine 09/21/18 Kitty Valente MD [address] [place] [address] Primary Staff Physician Cardiology 01/31/19 Team Status: Inactive Member Role Status Dates Broderick Howard DO Primary Care Provide r, Attending Provider Active Start: June 27, 2024 End: June 27, 2024 Freight And Passenger Agent Relationship Specialty Start Date End Date Broderick Howard DO [address] [id number] PCP - General Internal Medicine 09/21/18 Kitty Valente MD [address] [place] [address] Primary Staff Physician Cardiology 01/31/19 INFORMATION SOURCE (unrecogn ized section and content) DATE CREATED AUTHOR 07/24/2022 [facility] DATE CREATED AUTHOR AUTHOR'S ORGANIZ ATION 04/23/2023 [facility] DATE CREATED AUTHOR AUTHOR'S ORGANIZ ATION 06/11/2023 [facility] DATE CREATED AUTHOR AUTHOR'S ORGANIZ ATION 09/14/2023 [facility] DATE CREATED AUTHOR AUTHOR'S ORGANIZ ATION 06/02/2024 [facility] DATE CREATED AUTHOR AUTHOR'S ORGANIZ ATION 06/10/2024 [facility] DATE CREATED AUTHOR AUTHOR'S ORGANIZ ATION 06/12/2024 [facility] DATE CREATED AUTHOR AUTHOR'S ORGANIZ ATION 07/04/2024 [facility] Goals (unrecognized section and content) Goals may [...] BE BASED ON THE PRIMARY CLINICAL RECORDS. [employer] provides no warranty or guarantee of the accuracy or completeness of information in this document.
[2024-07-05 11:04] LABS: Basophils Percent Auto 0.7 % (0.2-2.0); Eosinophils Absolute Auto 0.2 10^3/uL (0.0-0.7); Eosinophils Percent Auto 4.2 % (0.9-7.0); Hematocrit 36.5 % (36.0-48.0); Hemoglobin 11.9 g/dL (12.0-16.0); Immature Granulocytes Abs Auto 0.03 10^3/uL (0.00-0.03); Immature Granulocytes Pct Auto 0.6 % (0.0-0.5); Lymphocytes Absolute Auto 0.8 10^3/uL (1.2-3.8); Lymphocytes Percent Auto 14.4 % (20.5-60.0); Mean Corpuscular HGB Conc 32.6 g/dL (29.9-35.2); Mean Corpuscular Hemoglobin 30.8 pg (26.7-34.0); Mean Corpuscular Volume 94.6 fL (81.0-99.0); Mean Platelet Volume 9.4 fL (9.5-13.5); Monocytes Absolute Auto 0.4 10^3/uL (0.3-0.8); Monocytes Percent Auto 6.5 % (1.7-12.0); Neutrophils Percent Auto 73.6 % (43.0-75.0); Platelet Count 180 10^3/uL (150-450); Red Blood Count 3.86 10^6/uL (4.20-5.40); Red Cell Distribution Width 14.9 % (11.0-15.0); White Blood Count 5.4 10^3/uL (4.0-11.0)
[2024-07-05 12:01] LABS: Percent Iron Saturation 18.9 %
== END 2024-07-05 10:33 | disposition home or self-care (01) ==
LOC: LAB 10:33
PROVIDERS: PCP Internal Medicine; Visit Provider Internal Medicine
DX: D64.9 Anemia, unspecified (principal); D72.810 Lymphocytopenia
CPT/HCPCS: 36415; 82607; 82728; 82746; 83540; 83550; 85025

== ENCOUNTER 2024-07-12 09:13 | Outpatient (OUT) | payer OTHER, SELFPAY ==
--- NOTE | 2024-07-12 09:16 | CT_ITS ---
[address] [address] Patient Name: BREANNA MCCORMICK MRN: [id number] date: 1950 Sex: F Assigned Patient Location: CT Current Patient Location: LAB Accession/Order Number: [id number] Exam Date: 07/12/2024 09:22 Report Date: 07/12/2024 10:45 At the request of: LANE QUAN Procedure: CT lumbar spine wo con EXAMINATION: CT lumbar spine wo con, 07/12/2024 9:22 AM EDT HISTORY: Post Laminectomy Syndrome COMPARISON: None. TECHNIQUE: CT of the lumbar spine was performed without IV contrast. CT dose reduction technique was used, including Automated Exposure Control. FINDINGS: PARASPINAL AREA: Atrophic right kidney. Filter within IVC. Postsurgical changes within lower back soft tissues. No appreciable mass or fluid collection. BONES: Mild convex curvature lumbar spine. Posterior decompression of L4 and L5. DISC LEVELS: 12-L1: Moderate degenerative disc disease is present without visible neural impingement. L1-L2: Moderate central canal and mild bilateral foramen narrowing. Marked disc height reduction and mild posterior disc bulging. Mild degenerative facet arthropathy. L2-L3: Moderate-marked central canal and left foramen narrowing. Moderate right foramen narrowing. Marked disc height reduction with moderate posterior disc-osteophyte complex. Mild degenerative facet arthropathy. L3-L4: Moderate-marked central canal and bilateral foramen narrowing. Moderate disc height reduction and moderate diffuse disc bulging. Moderate degenerative facet arthropathy and ligamentum flavum thickening. L4-L5: Prior resection of posterior elements. No central canal narrowing. Marked bilateral foramen narrowing. Mild disc height reduction and moderate diffuse disc bulging. Moderate degenerative facet arthropathy bilaterally. L5-S1: Prior resection of posterior elements. No central canal narrowing. Moderate right, mild left foramen narrowing. Intervertebral disc spacer and mild posterior disc bulging. Moderate degenerative facet arthropathy. CT/CT lumbar spine wo con IMPRESSION: 1. Prior posterior decompression of L4 and L5; no central canal stenosis at these levels but there is moderate to marked foraminal narrowing secondary to disc bulging and facet arthropathy. 2. Moderate to marked central canal and foraminal narrowing L2-L3 and L3-L4 secondary to degenerative disc disease and facet arthropathy. Electronically authenticated by: BRANDON BHAKTA Date: 07/12/2024 10:45
--- NOTE | 2024-07-12 09:46 | XR_ITS ---
[facility] [place] [id number] Patient Name: BREANNA MCCORMICK MRN: [id number] date: 1950 Sex: F Assigned Patient Location: CT Current Patient Location: CT Accession/Order Number: [id number] Exam Date: 07/12/2024 09:36 Report Date: 07/12/2024 10:48 At the request of: LANE QUAN Procedure: XR lumbar spine 6V w bending EXAMINATION: XR lumbar spine 6V w bending HISTORY: Post Laminectomy Syndrome COMPARISON: CT lumbar spine 07/04/2024, XR lumbar spine 05/15/2021 FINDINGS: BONES: Mild right convex curvature lumbar spine. No fracture or spondylolisthesis. No change in alignment during flexion and extension. Posterior decompression of L4 and L5. Moderate degenerative facet arthropathy L3-L4 through L5-S1. DISC SPACES: Marked narrowing L2-L3. Mild/moderate narrowing L3 on 4, L4 on 5. Intervertebral disc spacers at L5-S1. PARASPINOUS: Filter within IVC. OTHER: Negative. XR/XR lumbar spine 6V w bending IMPRESSION: 1. Posterior decompression of L4 and L5. 2. Multilevel moderate degenerative disc disease and facet arthropathy. 3. No change in alignment during flexion and extension. Electronically authenticated by: BRANDON BHKATA Date: 07/12/2024 10:48
== END 2024-07-12 09:14 | disposition home or self-care (01) ==
LOC: CT 09:13
PROVIDERS: PCP Internal Medicine; Visit Provider Neurological Surgery
DX: M96.1 Postlaminectomy syndrome, not elsewhere classified (principal); M51.36 Other intervertebral disc degeneration, lumbar region
CPT/HCPCS: 72114; 72131

== ENCOUNTER 2024-07-17 00:54 | Outpatient (RCR) | payer OTHER, SELFPAY | END 2024-08-14 23:52 | disposition home or self-care (01) | LOC: MM 00:54 | PROVIDERS: PCP Internal Medicine; Visit Provider Internal Medicine | DX: Z51.81 Encounter for therapeutic drug level monitoring (principal); Z79.01 Long term (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 of anticoagulants | CPT/HCPCS: 85610; G0463 ==

== ENCOUNTER 2024-08-01 09:11 | Outpatient (OUT) | payer OTHER, SELFPAY ==
--- NOTE | 2024-08-01 | MM_ITS ---
Patient Name: BREANNA MCCORMICK MR#: [id number] : 1950 Exam Date: 08/01/2024 Ordering Doctor: DR Broderick Joiner D.O. RADIOLOGY REPORT PROCEDURE: MM TOMOSYNTHESIS SCREENING BI COMPARISON: MG MAMM SCREEN 3D FAVIOLA CAD, 07/29/2022. MM TOMOSYNTHESIS SCREENING BI, 07/30/2023. INDICATIONS: SCREENING Calculator Name NCI Breast Cancer Risk Assessment Tool 5 Year Breast Cancer Risk 3.80% Lifetime Breast Cancer Risk 8.60% Personal Breast Cancer No Personal Ovarian Cancer No Treatments whipple procedure Family Cancers Sister with breast cancer at age 42; Father with liver cancer at age 57; Brother with pancreatic cancer at age 64. LOCATION: [facility] BREAST COMPOSITION: The breasts are heterogeneously dense,which may obscure small masses. FINDINGS: DIAGNOSTIC CATEGORY 2--BENIGN FINDING. NO CHANGE FROM COMPARISON. Scattered benign-appearing calcifications are present. Scattered benign-appearing lymph nodes are present. RIGHT BREAST: No significant suspicious finding. LEFT BREAST: No significant suspicious finding. RECOMMENDATIONS: ROUTINE MAMMOGRAM AND CLINICAL EVALUATION IN 12 MONTHS. PLEASE NOTE: A NORMAL MAMMOGRAM DOES NOT EXCLUDE THE POSSIBILITY OF BREAST CANCER. A CLINICALLY SUSPICIOUS PALPABLE LUMP SHOULD BE BIOPSIED. Dictated by: Gonzales Babcock MD on 08/01/2024 at 12:45 Approved by: Gonzales Babcock MD on 08/01/2024 at 12:46
== END 2024-08-01 09:12 | disposition home or self-care (01) ==
LOC: MAMMO 09:11
PROVIDERS: PCP Internal Medicine; Visit Provider Internal Medicine
DX: Z12.31 Encounter for screening mammogram for malignant neoplasm of breast (principal); Z80.3 Family history of malignant neoplasm of breast; Z80.8 Family history of malignant neoplasm of other organs or systems
CPT/HCPCS: 77063; 77067

== ENCOUNTER 2024-08-15 01:25 | Outpatient (RCR) | payer OTHER, SELFPAY | END 2024-09-14 23:42 | disposition home or self-care (01) | LOC: MM 01:25 | PROVIDERS: PCP Internal Medicine; Visit Provider Internal Medicine | DX: Z51.81 Encounter for therapeutic drug level monitoring (principal); Z79.01 Long term (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 of anticoagulants | CPT/HCPCS: 85610; G0463 ==

== ENCOUNTER 2024-08-28 09:23 | Outpatient (OUT) | payer OTHER, SELFPAY ==
--- OUTSIDE RECORDS SUMMARY | 2024-08-28 09:33 | XMS_ITS | CCD ---
Author Organization [facility] Care Team Providers Care Marketing Content Coordinator Name Role Phone Bertram Sanders Unavailable Broderick Howard DO Primary Care Provider Pascual Vidal MD, Kitty Unavailable Un available Broderick Howard DO Primary Care Provider Pascual Vidal MD, Kitty Unavailable Un available Broderick Howard Unavailable FAWWAD, AGUILAR H Admitting Unavailable BALL, [...] Unavailable Ball, DO Broderick Primary Care Provider [phone] Lee, DO Villafana Attending Provider Niki Weeks Unavailable MD Niki Weeks Attending Provider Pascual Vidla MD, Kitty Unavailable Un available MIRIAN BELL Attending Unavailable BRODERICK HOWARD Primary Care Unavailable LEE, BRODERICK Quinteros Primary Care Unavailable Broderick Howard DO Primary Care Provider Lee, DO Villafana Primary Care Provider [phone] Lee, DO Villafana Attending Provider [phone] WILIAN Mcfadden Attending Provider Lee, DO Villafana Primary Care Provider Lee, DO Villafana Attending Provider Kasey PAUL, Keith Barron Attending Unavailable Kasey PAUL, Keith Barron Attending Unavailable DAVID MCFADDEN Attending Unavailable DAVID MCFADDEN Referring Unavailable DAVID MCFADDEN Referring Unavailable JR. SALTER GEORGE C Attending Unavaila ble DO Broderick Howard Primary Care Provider [phone] BRODERICK HOWARD Primary Care Unavailable ALEJANDRO VILLAR Attending Unavailable ALEJANDRO VILLAR Referring Unavailable LEE, BRODERICK E Primary Care Unavailable ALEJANDRO VILLAR Attending Unavailable BALL, BRODERICK E Primary Care Unavailable RANDA REILLY Attending Unavailable RANDA REILLY Referring Unavailable BALL, BRODERICK E Primary Care Unavailable RANDA REILLY Attending Unavailable LAUREN OTERO Referring Unavailable BALL, BRODERICK E Primary Care Unavailable Ball, DO Broderick Attending Provider [phone] Blades, Niki A Admitting Unavailable Ball, Broderick Primary Care Unavailable Blades, Niki A Attending Unavailable Blades, Niki A Admitting Unavailable Ball, Broderick Primary Care Unavailable Blades, Niki A Attending Unavailable Ball, Broderick Primary Care Unavailable Ball, Broderick Attending Unavailable Ball, Broderick Admitting Unavailable Mcfadden, David Admitting Unavailable Mcfadden, David Attending Unavailable Ball, Broderick Primary Care Unavailable Ball, Broderick Primary Care Unavailable Ball, Broderick Attending Unavailable Ball, Broderick Admitting Unavailable Ball, Broderick Admitting Unavailable Ball, Broderick Primary Care Unavailable Ball, Broderick Attending Unavailable Blades, Niki A Admitting Unavailable Blades, Niki A Attending Unavailable Ball, Broderick Primary Care Unavailable Allergies Allergy Classification Reported Allergen(s) Allergy Type Date of Onset Reaction(s) Facility (20 sources) Dexamethasone; Translations: [DEXAMETHASONE] Drug Allergy 10-03-[address] [facility] (20 sources) pregabalin; Translations: [PREGABALIN] Drug Allergy 08-24-[address] [facility] (20 sources) rifAXIMin Drug Allergy 02-09-20 24 [facility] (1 source) Dexamethasone Drug Allergy [facility] (1 source) pregabalin Drug Allergy 11-15-19 08 [facility] (15 sources) Dexamethasone Drug Allergy 02-08-20 24 Unknown, Unknown Reaction [facility] (8 sources) Allergies Reconciled Propensity to adverse reactions Unknown COM DEV Other (8 sources) patient allergy list reviewed by nurse or physicia Propensity to adverse reactions 04-13-20 Comment:Done COM DEV Other (1 source) Dexamethasone Drug Allergy 01-06-20 21 [facility] (1 source) pregabalin Drug Allergy 01-06-20 21 [facility] Medications Current Medications Medication [...] Active cyclobenzaprine hydrochloride 5 mg oral tablet (2 sources) Muscle Relaxant Start: take 5 mg by [...] on above: Take 1 capsule by [facility] once daily. ondansetron 4 mg disintegrating oral [...] 06, 2024 8:49am take 1 tablet by [facility] every six hours as needed for nausea [...] once daily Venlafaxine Active 0 .ROUTE .COMPLEX February 23, 2024 1:31pm TAKE 1 CAPSULE [...] on above: Take 1 capsule by mo ut once daily. zonisamide 100 mg oral capsule [...] Sig (Original) acetaminophen 500 mg oral capsule (9 sources) Start: 07-20-2023 End: 02-08-2024 take 2 [...] (20 sources) Dihydropyridine Calcium Channel Dylan Start: 06-23-2022 End: 06-08-2024 take 5 mg by mouth once daily Amlodipine Discontinued 5 MG PO Daily February 08, 2024 12:00am June 08, 2024 2:29pm Start: 01-06-2021 End: 07-20-2023 take 10 mg [...] ml enoxaparin sodium 100 mg/ml prefilled syringe (8 sources) Low Molecular Weight Heparin Start: 08-03-2023 End: 06-08-2024 Enoxaparin (Lovenox) 100 mg/mL Syringe Discontinued 90 MG SUBCUT Daily August 03, 2023 12:00am June 08, 2024 2:29pm hydrALAZINE hydrochloride 50 mg oral tablet (11 sources) Arteriolar Vasodilator Start: 01-06-2021 End: 07-20-2023 Hydralazine Discontinued 50 MG PO As Directed January 06, 2021 1:00am July 20, 2023 11:41am melatonin 5 mg oral tablet (11 sources) Start: 01-06-2021 End: 07-20-2023 take 5 [...] Not-Taking/PRN naproxen sodium 220 mg oral tablet (14 sources) Nonsteroidal Anti-inflammatory Drug Start: 01-06-2021 End: [...] nee ded. tiZANidine 4 mg oral tablet (8 sources) Central alpha-2 Adrenergic Agonist Start: 08-05-2023 [...] disorder, unspecified] Onset: 8 06-21-2018 Chronic Asthma (15 sources) Asthma without status asthmaticus; Translations: [Asthma, [...] 11-10-2021 Chronic Diseases of white blood cells (6 sources) Leukopenia; Translations: [Decreased white blood cell [...] [Vitamin D deficiency, unspecified] 02-08-2024 Chronic Osteoarthritis (9 sources) Arthritis; Translations: [Unspecified osteoarthritis, unspecified site] 02-08-2024 Chronic Osteoporosis (20 sources) Osteoporosis; Translations: [Age-related osteoporosis without current pathological fracture] Chronic Other aftercare (16 sources) H/O: high risk medication; Translations: [Other medical terminologist (current) drug therapy] Episodic Other aftercare (20 sources) Long-term current use of anticoagulant; Translations: [technician terminal and repeater (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 of anticoagulants] Onset: 4 02-08-2024 Episodic Other aftercare (5 sources) Encounter for therapeutic drug level monitoring; Translations: [ENC THERAPEUTC DRUG LEVL MONITORING] Onset: 3 Episodic Other aftercare (1 source) FDC (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 of anticoagulants; Translations: [SKILLED NURSING CURRNT USE ANTICOAGULANTS] Onset: 3 Episodic Other aftercare (8 sources) Long-term current use of drug therapy; Translations: [Other medical terminologist (current) drug therapy] Episodic Other aftercare (1 source) Drug therapy finding; Translations: [Other medical terminologist (current) drug therapy] 02-08-2024 Episodic Other and [...] as traumatic] Episodic Other connective tissue disease (4 sources) Trochanteric bursitis; Translations: [Trochanteric bursitis, right hip] 04-21-2024 Episodic Other connective tissue disease (4 sources) Trochanteric bursitis, right hip; Translations: [Enthesopathy of hip region] 04-21-2024 Episodic Other diseases of kidney and ureters (3 sources) Secondary hyperparathyroidism; Translations: [Secondary hyperparathyroidism of renal origin] 06-08-2024 Chronic Other diseases of kidney and ureters (3 sources) Secondary hyperparathyroidism of renal origin; Translations: [Secondary hyperparathyroidism (of renal origin)] 06-08-2024 Chronic Other diseases of kidney and ureters (1 source) Kidney disease; Translations: [Disorder of kidney and ureter, unspecified] 02-08-2024 Episodic Other gastrointestinal disorders (20 sources) Irritable bowel syndrome characterized by constipation; [...] of falling] Episodic Other nervous system disorders (6 sources) Postoperative pain ; Translations: [Other acute postprocedural pain] 03-03-2024 Episodic Other nutritional; endocrine; and metabolic disorders (20 sources) Obesity; Translations: [Obesity, unspecified] Chronic Other screening for suspected conditions (not mental disorders or infectious disease) (6 sources) Encounter for screening mammogram for malignant neoplasm of breast; Translations: [Other screening mammogram] Onset: Episodic Other upper respiratory infections (17 sources) [...] [Localized edema] 02-08-2024 Episodic Residual codes; unclassified (4 sources) History of operative procedure on lumbar spinal structure; Translations: [Other specified postprocedural states] 04-21-2024 Episodic Residual codes; unclassified (4 sources) Other specified postprocedural states; Translations: [Personal history of surgery to other organs] 04-21-2024 Episodic Retinal detachments; defects; vascular occlusion; and retinopathy (16 sources) Retinal hemorrhage; 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, bilateral] Chronic Spondylosis; intervertebral disc disorders; other back problems (20 sources) Cervical spondylosis; Translations: [Spondylosis without myelopathy or radiculopathy, cervical region] Onset: 4 Chronic Thyroid disorders (20 sources) Thyroid nodule; Translations: [Nontoxic single thyroid nodule] Chronic Unclassified (3 sources) LOW BACK PAIN, UNSPECIFIED; Translations: [LOW BACK PAIN, UNSPECIFIED] Onset: 3 Unclassified (8 sources) Exposure to acute respiratory syndrome coronavirus 2; Translations: [Contact with and (suspected) exposure to COVID-19] Unclassified (1 source) Established Patient Onset: 4 Unclassified (1 source) Low back pain, unspecified; [...] Other aftercare (15 sources) Anticoagulant effect; Translations: [FDC (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 of anticoagulants] Onset: 05-14-2015 05-14-2015 Episodic Other aftercare (1 source) Other medical terminologist (current) drug therapy; Translations: [OTH LANGUAGE ARTS TEACHER CURRENT DRUG THERAPY] Onset: 08-04-2022 Episodic Other [...] and neuritis, unspecified] Resolved: 07-24-2020 Episodic Other connective tissue disease (1 source) Pain in leg, unspecified; Translations: [Pain in leg, unspecified] Onset: 03-28-2024 Episodic Other eye disorders (15 sources) Hypertropia of right eye; 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, right eye] Onset: 10-08-2015 10-08-2015 Episodic Other liver diseases (15 sources) Alkaline phosphatase raised; Translations: [Abnormal levels of other serum enzymes] Onset: 05-14-2015 05-14-2015 Episodic Other nervous system disorders (8 sources) Impaired cognition; Translations: [Other symptoms and signs involving cognitive functions and awareness] Resolved: 01-25-2022 Episodic Other nervous system disorders (15 sources) Paresthesia; Translations: [Paresthesia of skin] Onset: 01-05-2019 02-08-2024 Episodic Other nervous system disorders (1 source) Other acute postprocedural pain; Translations: [Other acute postprocedural pain] Onset: 03-28-2024 Episodic Other non-traumatic joint disorders (8 sources) [...] malignant neoplasm of breast; Translations: [FAMILY HX MALONEIDA NEOPLASM OF BREAST] Onset: 07-31-2022 Episodic Residual codes; unclassified (1 source) Family history of malignant neoplasm of other organs or systems; Translations: [FAM HX MALIG NEOPLASM OTH ORGN/SYS] Onset: 07-31-2022 Episodic Spondylosis; intervertebral disc disorders; other back problems (20 sources) Thoracic and lumbosacral neuritis; Translations: [Thoracic or lumbosacral neuritis or radiculitis, unspecified] Onset: 04-30-2014 Resolved: 07-30-2021 Episodic Sprains and strains (8 sources) Neck sprain; Translations: [Strain of muscle, fascia and tendon at neck level, initial encounter] Resolved: 07-24-2020 Episodic Unclassified (1 source) LOW BACK PAIN, UNSPECIFIED; Translations: [LOW BACK PAIN, UNSPECIFIED] Onset: 03-29-2023 Unclassified (8 sources) Gynecological examination normal; Translations: [Routine gynecological examination] Onset: 02-22-2008 Results Test Name Value Interpretation Reference Range Facility Basophils Auto (Bld) [#/Vol] on 07-05-2024 Basophils (Bld) [#/Vol] 0.0 10 3/uL 0.0-0.1 [facility] Basophils/100 WBC Auto (Bld) on 07-05-2024 Basophils/100 WBC (Bld) 0.7 % 0.2-2.0 [facility] Eosinophils/100 WBC Auto (Bl d)on 07-05-2024 Eosinophils/100 WBC (Bld) 4.2 % 0.9-7.0 [facility] Erythrocyte distribution wid th Auto (RBC) [Ratio]on 07-05-2024 Erythrocyte distribution width (RBC) [Ratio] 14.9 % 11.0-15.0 [facility] Hematocrit Auto (Bld) [Volum e fraction]on 07-05-2024 Hematocrit (Bld) [Volume fraction] 36.5 % 36.0-48.0 [facility] Hemoglobin [Mass/volume] in Bloodon 07-05-2024 Hemoglobin (Bld) [Mass/Vol] 11.9 g/dL Low 12.0-16.0 [facility] Iron binding capacity [Mass/ volume] in Serum or Plasmaon 07-05-2024 Iron binding capacity [Mass/Vol] 344.0 ug/dL 250.0-450. 0 [facility] Iron saturation [Mass Fracti on] in Serum or Plasmaon 07-05-2024 Iron saturation [Mass fraction] 18.9 % [facility] Maxx 07-05-2024 L Specimen: [id number] Received: 07/10/24 Status: SHARON Req Num: [id number] Spec Type: Impression Subm Dr: Broderick Howard DO Tissues: PATHPER Procedures: PATHREVIEW Age/ Patient Sex Location Account Attending Physician RodrigezCassi 74/F LABELL [id number] Broderick Howard DO SPEC NUM: [id number] RECD: 07/10/24 STATUS: SHARON RAFAELA NUM: [id number] GRACIA: 07/05/[address]: Broderick Howard DO ENTERED: 07/10/[address] [facility] [address]: Anthony,Lab SPEC TYPE: Impression DEPT: ODALYS Knight ENTERED BY: [id number] RECV BY: [id number] ORDERED: PATHREVIEW ORDERED: PATHREVIEW Pathologist Review Abnormal CBC for peripheral blood smear review -Agree with the reading of hematologic analyzer -Mild anemia of normocytic type, including occasional ovalocytes -At least 1 giant platelet, and rare large platelets, otherwise are predominantly small sized platelets -Mild lymphocytopenia -Rare precursor granulocytes, including rare bands -No morphological abnormality of the leukocyte population except occasional reactive lymphocytes Comment: -The cause of mild anemia of the elderly female patient is probably multifactorial in etiology requiring clinical correlation. -Lymphocytopenia may suggest underlying immunocompromised status including collagen vascular disease such as lupus erythematosus -Other possibility may include antineoplastics, radiation therapy, or usage of adrenocort icosteroids requiring clinical correlation CPT: 87729 Specimen: [id number] Received: 07/10/24 Status: SHARON Russo Num: [id number] Spec Type: Impression Subm Dr: Broderick Howard DO Tissues: PATHPER Procedures: PATHREVIEW Patient: Cassi Rodrigez [id number] (Continued) Signed (signature on file) Abel-Jairo Felipe MD 07/10/241756 Normal [facility] - Chemistry and C hemistry - challengeon 07-05-2024 Cobalamin (Vitamin B12) [Mass/Vol] 400.0 pg/mL 193.0-986. 0 [facility] Ferritin [Mass/Vol] 24.0 ng/mL 8.0-252.0 [facility] Iron [Mass/Vol] 65.0 ug/dL 50.0-170.0 [facility] Laboratory - Hematology and Cell countson 07-05-2024 Immature granulocytes/100 WBC (Bld) 0.6 % High 0.0-0.5 [facility] Leukocytes [#/volume] correc tanesha for nucleated erythrocytes in Blood by Automated counon 07-05-2024 WBC corrected for nucl RBC Auto (Bld) [#/Vol] 5.4 10 3/uL 4.0-11.0 [facility] Lymphocytes Auto (Bld) [#/Vo l]on 07-05-2024 Lymphocytes (Bld) [#/Vol] 0.8 10 3/uL Low 1.2-3.8 [facility] Lymphocytes/100 WBC Auto (Bl d)on 07-05-2024 Lymphocytes/100 WBC (Bld) 14.4 % Low 20.5-60.0 [facility] MCH Auto (RBC) [Entitic mass ]on 07-05-2024 MCH (RBC) [Entitic mass] 30.8 pg 26.7-34.0 [facility] MCHC Auto (RBC) [Mass/Vol]on 07-05-2024 MCHC (RBC) [Mass/Vol] 32.6 g/dL 29.9-35.2 [facility] MCV Auto (RBC) [Entitic vol] on 07-05-2024 MCV (RBC) [Entitic vol] 94.6 fL 81.0-99.0 [facility] Monocytes Auto (Bld) [#/Vol] on 07-05-2024 Monocytes (Bld) [#/Vol] 0.4 10 3/uL 0.3-0.8 [facility] Monocytes/100 WBC Auto (Bld) on 07-05-2024 Monocytes/100 WBC (Bld) 6.5 % 1.7-12.0 [facility] Neutrophils Auto (Bld) [#/Vo l]on 07-05-2024 Neutrophils (Bld) [#/Vol] 4.0 10 3/uL 1.4-6.5 [facility] Neutrophils/100 WBC Auto (Bl d)on 07-05-2024 Neutrophils/100 WBC (Bld) 73.6 % 43.0-75.0 [facility] No Panel Informationon 07-05 Eosinophils # (Auto) 0.2 10 3/uL 0.0-0.7 [facility] Folate 10.80 ng/mL 8.60-58.90 [facility] Immature Granulocyte # (Auto) 0.03 10 3/uL 0.00-0.03 [facility] Platelet mean volume Auto (B ld) [Entitic vol]on 07-05-2024 Platelet mean volume (Bld) [Entitic vol] 9.4 fL Low 9.5-13.5 [facility] Platelets Auto (Bld) [#/Vol] on 07-05-2024 Platelets (Bld) [#/Vol] 180 10 3/uL 150-450 [facility] RBC Auto (Bld) [#/Vol]on RBC (Bld) [#/Vol] 3.86 10 6/uL Low 4.20-5.40 [facility] CNOVon 06-29-2024 CNOV Office Visit (NEEPFV ) -- CASSI RODRIGEZ ([id number]) 1950 F Date Time Provider Department 06/29/24 1:00 PM ALEJANDRO VILLAR NEEPFV During your visit today, we recorded the following information about you: Pulse Blood pressure Weight Height 85/minute 133/72 85.4 kg 1.575 m Alejandro Villar MD, PhD 07/03/2024 12:56 PM Signed [facility] Patient Name: Cassi Rodrigez Date of : 1950 ESTABLISHED EPILEPSY CLINIC NOTE 06/29/2024 1:00 PM Reason for Visit: Epilepsy Clinical Summary: Ms. Rodrigez is a 74 year old female seen in [facility]. Classification Summary HISTORY OF [...] and s/p lumbar laminectomy in 07/2023. At [facility] in Dec 2023, ZNS was increased to [...] - Seizure risk factors: Brain Tumor Unanswered MATERIAL ASSISTANT Infections Unanswered Developmental Delay Unanswered Family history [...] - 1.02 mg/dL 1.60 High TBH EGFR-AF MONGOLIAN >=60 38 Low TBH EGFR-NON AF MONGOLIAN >=60 32 Low BUN CREATININE (more content not included)... Normal [facility] Comprehensive metabolic 2000 panelon 06-29-2024 Albumin [Mass/Vol] 4.3 g/dL 3.9 - 4.9 g/dL [facility] ALP [Catalytic activity/Vol] 170 U/L High 34 - 123 U/L [facility] ALT [Catalytic activity/Vol] 28 U/L 7 - 38 U/L [facility] Anion gap [Moles/Vol] 8 mmol/L 8 - 15 mmol/L [facility] AST [Catalytic activity/Vol] 22 U/L 13 - 35 U/L [facility] Bilirubin [Mass/Vol] 0.4 mg/dL 0.2 - 1 .3 mg/dL [facility] Calcium [Mass/Vol] 8.8 mg/dL 8.5 - 10. 2 mg/dL [facility] Chloride [Moles/Vol] 109 mmol/L High 98 - 10 7 mmol/L [facility] CO2 [Moles/Vol] 24 mmol/L 22 - 30 mmol/L [facility] Creatinine [Mass/Vol] 1.73 mg/dL High 0.58 - 0.96 mg/dL [facility] GFR/1.73 sq M.predicted among non-blacks MDRD (S/P/Bld) [Vol rate/Area] 31 mL/min/{1.73_m2} Low - PINF [facility] Comment on above: Estimated Glomerular Filtration [...] High 74 - 99 mg/dL [facility] Comment on above: The [place] Diabete s Association (ADA) provides guidance for [...] Standards of Medical Care in Diabetes 2016, [place] [employer] Association. Diabetes Care. 2016.39(Suppl 1). Interpretation and review of laboratory results Abnormal [facility] Potassium [Moles/Vol] 5.1 mmol/L 3.7 - 5.1 mmol/L [facility] Protein [Mass/Vol] 7.0 g/dL 6.3 - 8.0 g/dL [facility] Sodium [Moles/Vol] 141 mmol/L 136 - 144 mmol/L [facility] Urea nitrogen [Mass/Vol] 34 mg/dL High 7 - 21 mg/dL [facility] Albumin [Mass/Vol] 4.3 g/dL Normal 3.9-4.9 [facility] Comment on above: Order Comment: Speci men Type: BLOOD SPECIMEN Ordering Facility: [facility] Address: [address] [place] [address] Performed By: #### 2 4323-8 #### [facility] CLIA [id number] [address] [place] [address] [place] ALP [Catalytic activity/Vol] 170 U/L High 34-123 [facility] Comment on above: Order Comment: Speci men Type: BLOOD SPECIMEN Ordering Facility: [facility] Address: [address] [place] [address] Performed By: #### 2 4323-8 #### [facility] CLIA [id number] [address] [place] [address] [place] ALT [Catalytic activity/Vol] 28 U/L Normal 7-38 [facility] Comment on above: Order Comment: Speci men Type: BLOOD SPECIMEN Ordering Facility: [facility] Address: [address] [place] [address] Performed By: #### 2 4323-8 #### [facility] CLIA [id number] [address] [place] [address] [place] Anion gap [Moles/Vol] 8 mmol/L Normal 8-15 [facility] Comment on above: Order Comment: Speci men Type: BLOOD SPECIMEN Ordering Facility: [facility] Address: [address] [place] [address] Performed By: #### 2 4323-8 #### [facility] CLIA [id number] [address] [place] [address] [place] AST [Catalytic activity/Vol] 22 U/L Normal 13-35 [facility] Comment on above: Order Comment: Speci men Type: BLOOD SPECIMEN Ordering Facility: [facility] Address: [address] [place] [address] Performed By: #### 2 4323-8 #### [facility] CLIA [id number] [address] [place] [address] [place] Bilirubin [Mass/Vol] 0.4 mg/dL Normal 0.2-1.3 [facility] Comment on above: Order Comment: Speci men Type: BLOOD SPECIMEN Ordering Facility: [facility] Address: [address] [place] [address] Performed By: #### 2 4323-8 #### [facility] CLIA [id number] [address] [place] [address] [place] Calcium [Mass/Vol] 8.8 mg/dL Normal 8.5-10.2 [facility] Comment on above: Order Comment: Speci men Type: BLOOD SPECIMEN Ordering Facility: [facility] Address: [address] [place] [address] Performed By: #### 2 4323-8 #### [facility] CLIA [id number] [address] [place] [address] [place] Chloride [Moles/Vol] 109 mmol/L High 98-107 [facility] Comment on above: Order Comment: Speci men Type: BLOOD SPECIMEN Ordering Facility: [facility] Address: [address] [place] [address] Performed By: #### 2 4323-8 #### [facility] CLIA [id number] [address] [place] [address] [place] CO2 [Moles/Vol] 24 mmol/L Normal 22-30 [facility] Comment on above: Order Comment: Speci men Type: BLOOD SPECIMEN Ordering Facility: [facility] Address: [address] [place] [address] Performed By: #### 2 4323-8 #### [facility] CLIA [id number] [address] [place] [address] [place] Creatinine [Mass/Vol] 1.73 mg/dL High 0.58-0.96 [facility] Comment on above: Order Comment: Speci men Type: BLOOD SPECIMEN Ordering Facility: [facility] Address: [address] [place] [address] Performed By: #### 2 4323-8 #### [facility] CLIA [id number] [address] [place] [address] [place] [facility] Creatinine and Glomerular filtration rate.predicted panel (S/P/Bld) 31 mL/min/1.73m??? Low >=60 [facility] Comment on above: Order Comment: Warren almazan Type: BLOOD SPECIMEN Ordering Facility: [facility] Address: [address] [place] [address] Result Comment: Radhika mated Glomerular Filtration Rate [...] GFR. Performed By: #### 2 4323-8 #### [facility] CLIA [id number] [address] [place] [address] [place] Glucose [Mass/Vol] 111 mg/dL High 74-99 [facility] Comment on above: Order Comment: Warren almazan Type: BLOOD SPECIMEN Ordering Facility: [facility] Address: [address] [place] [address] Result Comment: The [place] Diabetes Association (ADA) provides guidance for cutoff [...] Standards of Medical Care in Diabetes 2016, [place] [employer] Association. Diabetes Care. 2016.39(Suppl 1). Performed By: #### 2 4323-8 #### [facility] CLIA [id number] [address] [place] [address] [place] Potassium [Moles/Vol] 5.1 mmol/L Normal 3.7-5.1 [facility] Comment on above: Order Comment: Speci men Type: BLOOD SPECIMEN Ordering Facility: [facility] Address: [address] [place] [address] Performed By: #### 2 4323-8 #### [facility] CLIA [id number] [place] [address] [place] Protein [Mass/Vol] 7.0 g/dL Normal 6.3-8.0 [facility] Comment on above: Order Comment: Speci men Type: BLOOD SPECIMEN Ordering Facility: [facility] Address: [address] [place] [address] Performed By: #### 2 4323-8 #### [facility] CLIA [id number] [address] [place] [address] [place] Sodium [Moles/Vol] 141 mmol/L Normal 136-144 [facility] Comment on above: Order Comment: Speci men Type: BLOOD SPECIMEN Ordering Facility: [facility] Address: [address] [place] [address] Performed By: #### 2 4323-8 #### [facility] CLIA [id number] [address] [place] [address] [place] Urea nitrogen [Mass/Vol] 34 mg/dL High 7-21 [facility] Comment on above: Order Comment: Speci men Type: BLOOD SPECIMEN Ordering Facility: [facility] Address: [address] [place] [address] Performed By: #### 2 4323-8 #### [facility] CLIA [id number] [address] [place] [address] [place] LEVETIRACETAMon 06-29-2024 levETIRAcetam [Mass/Vol] 59.9 ug/mL High 12.0 - 46.0 ug/mL [facility] Comment on above: This test is [...] its performance characteristics determined by [facility]'s [facility] Pathology and [facility] [place] ([facility] It has not been cleared or approved by the FDA. -[facility] is regulated under CLIA as qualified to perform high-complexity testing. This test is used for clinical purposes. It should not be regarded as investigational or for research. Laboratory - Chemistry and C hemistry - challengeon 06-29-2024 Albumin [Mass/Vol] 4.3 g/dL 3.9-4.9 [facility] ALP [Catalytic activity/Vol] 170 U/L High 34-123 [facility] ALT [Catalytic activity/Vol] 28 U/L 7-38 [facility] AST [Catalytic activity/Vol] 22 U/L 13-35 [facility] Bilirubin [Mass/Vol] 0.4 mg/dL 0.2-1.3 [facility] Calcium [Mass/Vol] 8.8 mg/dL 8.5-10.2 [facility] Chloride [Moles/Vol] 109 mmol/L High 98-107 [facility] CO2 [Moles/Vol] 24 mmol/L 22-30 [facility] Creatinine [Mass/Vol] 1.73 mg/dL High 0.58-0.96 [facility] Glucose [Mass/Vol] 111 mg/dL High 74-99 [facility] Comment on above: The [place] Diabete s Association (ADA) provides guidance for cutoff values for fasting glucose and random glucose. The ADA defines fasting as no caloric intake for at least 8 hours. Fasting plasma glucose results between 100 to 125 mg/dL indicate increased risk for diabetes (prediabetes).Fasting plasma glucose results greater than or equal to 126 mg/dL meet the criteria for diagnosis of diabetes. In the absence of unequivocal hyperglycemia, results should be confirmed by repeat testing. In a patient with classic symptoms of hyperglycemia or hyperglycemic crisis, random plasma glucose results greater than or equal to 200 mg/dL meet the criteria for diagnosis of diabetes.Reference: Standards of Medical Care in Diabetes 2016, [place] Diabetes Association. Diabetes Care. 2016.39(Suppl 1). Potassium [Moles/Vol] 5.1 mmol/L 3.7-5.1 [facility] Sodium [Moles/Vol] 141 mmol/L 136-144 [facility] Urea nitrogen [Mass/Vol] 34 mg/dL High 7-21 [facility] No Panel Informationon 06-29 Estimated GFR (CKD-EPI) 31 mL/min/1.73m??? Low >=60 [facility] Comment on above: Estimated Glomerular Filtration [...] eGFR may not accurately reflect actual GFR. Levetiracetam (Keppra) Level 59.9 ug/mL High 12.0-46.0 [facility] Comment on above: This test is not alvin table for patients receiving treatment with the drug brivaracetam (Briviact). The drug causes an interference that may lead to falsely elevated levetiracetam results.Reference ranges and high/low indicator flags are provided as general guidelines only. The treating physician must determine appropriate target levels/dosing based on the specific clinical situation.This test was developed and its performance characteristics determined by [facility] [place] ([facility]). It has not been cleared or approved by the FDA. RT-[facility] is regulated under CLIA as qualified to perform high-complexity testing. This test is used for clinical purposes. It should not be regarded as investigational or for research. Protein [Mass/volume] in Ser um or Plasmaon 06-29-2024 Protein [Mass/Vol] 7.0 g/dL 6.3-8.0 [facility] Serum or plasma anion gap de terminationon 06-29-2024 Anion gap [Moles/Vol] 8 mmol/L 8-15 [facility] levETIRAcetam SerPl-mCncon 0 06-29-2024 levETIRAcetam [Mass/Vol] 59.9 ug/mL High 12.0-46.0 [facility] Comment on above: Order Comment: Speci men Type: BLOOD SPECIMEN Ordering Facility: [facility] Address: [address] [place] [address] Result Comment: This test is not suitable [...] its performance characteristics determined by [facility]'s [facility] [place] ([facility]). It has not been cleared or approved by the FDA. -[facility] is regulated under CLIA as qualified to perform high-complexity testing. This test is used for clinical purposes. It should not be regarded as investigational or for research. Performed By: #### 3 0471-7 #### [facility] CLIA [id number] [address] [place], [place] [address] [place] [address] [place] levETIRAcetam [Mass/Vol]on 0 06-29-2024 Interpretation and review of laboratory results Abnormal [facility] INR in Platelet poor plasma by Coagulation assayon 06-05-2024 INR Coag (PPP) [Relative time] 2.29 {INR} [facility] Comment on above: DESIRED INR:2.0-3.0 CONDITIONS NOT LISTED BELOW2.5-3.5 FOR PROSTHETIC HEART VALVE REPLACEMENT2.5-3.5 RECURRENT THROMBOSIS Prothrombin time (PT)on 05-16 PT Coag (PPP) [Time] 22.4 s High 9.0-11.6 [facility] ISTAT XRay CREon 05-30-2024 ISTAT GFR 29.200 Normal [facility] Comment on above: Result Comment: PERF ORMED BY: [facility] [address] [place] [address] PATHOLOGIST DAIRY BAR MANAGER LELE FALK M.D. Performed By: #### I SCRE #### [facility] [address] [id number] [facility] MR lumbar spine wo conon MR lumbar spine wo con [facility] [address] [place] [address] [id number] MRI Report Signed Patient: Cassi Rodrigez MR#: [id number] 8 : 1950 Acct:[id number] Age/Sex: 74 / F ADM Date: 05/30/24 Loc: MR [facility] Dr: David Mcfadden PA-C Copies to: [...] Rico John M.D.05/30/2024 10:27 AM Dictation Location: [place] [address] Transcribed By: [facility] 05/30/24 1027 Dictated By: Rico John DO 05/30/24 1006 Signed By: 05/30/24 1027 Normal [facility] No Panel InformationOrdered By: David Mcfadden on 05-30-2024 Bedside Estimated GFR (eGFR) 29.200 [facility] Whole blood creatinine measu rementOrdered By: David Mcfadden on 05-30-2024 Creatinine [Mass/Vol] 1.8 mg/dL High 0.6-1.3 [facility] Comment on above: ER/ESD physician is notified/shown all ISTAT results.Critical values may be confirmed by laboratory testing ifdeemed necessary by ER attending doctor. Result Comment: ER/E SD physician is notified/shown all ISTAT results. Critical values may be confirmed by laboratory testing if deemed necessary by ER attending doctor. Performed By: #### I SCRE #### [address] CNOVon 05-23-2024 CNOV Office Visit (NEADFV ) -- CASSI RODRIGEZ ([id number]) 1950 F Date Time Provider Department 05/23/24 11:30 AM RANDA REILLY NEADFV During your visit today, we recorded the following information about you: Pulse Blood pressure Weight Height 85/minute 133/72 85.7 kg 1.575 m Randa Reilly MD 05/23/2024 12:54 PM Signed BOTOX PROCEDURE [...] Injection Sites Muscle Fixed Site/Fixed Dose Bilat Edger Feeder 20 U divided in 2 sites Procerus [...] wasted: 0 Randa Reilly MD [facility] [place] Tomasa Farfan RN 05/23/2024 11:55 AM Signed [...] Diann VARELA Botox, 2 vials: Lot # [id number] Exp Lot # [id number] Exp Botox handed to Dr. Reilly to administer and verified order. Referring Provider: RANDA REILLY [[id number]] Allergies As of Date: 05/23/2024 Noted Allergy [...] of nor (more content not included)... Normal [facility] INR in Platelet poor plasma by Coagulation assayon 05-15-2024 INR Coag (PPP) [Relative time] 2.71 {INR} [facility] Comment on above: DESIRED INR:2.0-3.0 CONDITIONS NOT LISTED BELOW2.5-3.5 FOR PROSTHETIC HEART VALVE REPLACEMENT2.5-3.5 RECURRENT THROMBOSIS Prothrombin time (PT)on PT Coag (PPP) [Time] 26.0 s High 9.0-11.6 [facility] Basophils Auto (Bld) [#/Vol] on 05-05-2024 Basophils (Bld) [#/Vol] 0.0 10 3/uL 0.0-0.1 [facility] Basophils/100 WBC Auto (Bld) on 05-05-2024 Basophils/100 WBC (Bld) 1.1 % 0.2-2.0 [facility] Eosinophils/100 WBC Auto (Bl d)on 05-05-2024 Eosinophils/100 WBC (Bld) 6.9 % 0.9-7.0 [facility] Erythrocyte distribution wid th Auto (RBC) [Ratio]on 05-05-2024 Erythrocyte distribution width (RBC) [Ratio] 13.3 % 11.0-15.0 [facility] Estimated glomerular filtrat ion rate (GFR) non- Americanon 05-05-2024 GFR/1.73 sq M.predicted among non-blacks MDRD (S/P/Bld) [Vol rate/Area] 32 mL/min/{1.73_m2} Low >=60 [facility] Hematocrit Auto (Bld) [Volum e fraction]on 05-05-2024 Hematocrit (Bld) [Volume fraction] 35.5 % Low 36.0-48.0 [facility] Hemoglobin [Mass/volume] in Bloodon 05-05-2024 Hemoglobin (Bld) [Mass/Vol] 11.1 g/dL Low 12.0-16.0 [facility] Laboratory - Chemistry and C hemistry - challengeon 05-05-2024 Calcium [Mass/Vol] 8.4 mg/dL Low 8.5-10.1 [facility] Chloride [Moles/Vol] 108 mmol/L High 98-107 [facility] CO2 [Moles/Vol] 26.2 mmol/L 21.0-32.0 [facility] Creatinine [Mass/Vol] 1.60 mg/dL High 0.55-1.02 [facility] GFR/1.73 sq M.predicted MDRD (S/P/Bld) [Vol rate/Area] 38 mL/min/{1.73_m2} Low >=60 [facility] Glucose [Mass/Vol] 103 mg/dL 74-106 [facility] Potassium [Moles/Vol] 4.4 mmol/L 3.5-5.1 [facility] Sodium [Moles/Vol] 140 mmol/L 136-145 [facility] Urea nitrogen [Mass/Vol] 24.0 mg/dL High 7.0-18.0 [facility] Urea nitrogen/Creatinine [Mass ratio] 15.0 mg/mg [facility] Laboratory - Hematology and Cell countson 05-05-2024 ESR (Bld) [Velocity] 45 mm/h High <=30 [facility] Immature granulocytes/100 WBC (Bld) 0.0 % 0.0-0.5 [facility] Leukocytes [#/volume] correc tanesha for nucleated erythrocytes in Blood by Automated counon 05-05-2024 WBC corrected for nucl RBC Auto (Bld) [#/Vol] 3.8 10 3/uL Low 4.0-11.0 [facility] Lymphocytes Auto (Bld) [#/Vo l]on 05-05-2024 Lymphocytes (Bld) [#/Vol] 1.0 10 3/uL Low 1.2-3.8 [facility] Lymphocytes/100 WBC Auto (Bl d)on 05-05-2024 Lymphocytes/100 WBC (Bld) 27.1 % 20.5-60.0 [facility] MCH Auto (RBC) [Entitic mass ]on 05-05-2024 MCH (RBC) [Entitic mass] 28.8 pg 26.7-34.0 [facility] MCHC Auto (RBC) [Mass/Vol]on 05-05-2024 MCHC (RBC) [Mass/Vol] 31.3 g/dL 29.9-35.2 [facility] MCV Auto (RBC) [Entitic vol] on 05-05-2024 MCV (RBC) [Entitic vol] 92.2 fL 81.0-99.0 [facility] Monocytes Auto (Bld) [#/Vol] on 05-05-2024 Monocytes (Bld) [#/Vol] 0.3 10 3/uL 0.3-0.8 [facility] Monocytes/100 WBC Auto (Bld) on 05-05-2024 Monocytes/100 WBC (Bld) 8.2 % 1.7-12.0 [facility] Neutrophils Auto (Bld) [#/Vo l]on 05-05-2024 Neutrophils (Bld) [#/Vol] 2.1 10 3/uL 1.4-6.5 [facility] Neutrophils/100 WBC Auto (Bl d)on 05-05-2024 Neutrophils/100 WBC (Bld) 56.7 % 43.0-75.0 [facility] No Panel Informationon 05-05 C-Reactive Protein, Quantitative <0.50 mg/dL <=0.50 [facility] Eosinophils # (Auto) 0.3 10 3/uL 0.0-0.7 [facility] Immature Granulocyte # (Auto) 0.00 10 3/uL 0.00-0.03 [facility] Platelet mean volume Auto (B ld) [Entitic vol]on 05-05-2024 Platelet mean volume (Bld) [Entitic vol] 9.4 fL Low 9.5-13.5 [facility] Platelets Auto (Bld) [#/Vol] on 05-05-2024 Platelets (Bld) [#/Vol] 217 10 3/uL 150-450 [facility] RBC Auto (Bld) [#/Vol]on RBC (Bld) [#/Vol] 3.85 10 6/uL Low 4.20-5.40 [facility] Serum or plasma anion gap de terminationon 05-05-2024 Anion gap [Moles/Vol] 10.2 mmol/L [facility] MR lumbar spine wo/w conon 0 03-28-2024 MR lumbar spine wo/w con [facility] [place] [address] MRI Report Signed Patient: Cassi Rodrigez MR#: [id number] 8 : 1950 Acct:[id number] Age/Sex: 74 / F ADM Date: 03/28/24 Loc: Room: Type: [facility] Attending Dr: Broderick Howard DO Copies [...] Arnel Simon M.D.03/28/2024 12:17 PM Dictation Location: [place] [address] Transcribed By: [facility] 03/28/24 1217 Dictated By: Arnel Simon II, MD 03/28/24 1209 Signed By: 03/28/24 1217 Normal [facility] No Panel Informationon 03-15 BLANK _ [facility] Implant Date 05/22/2015 [facility] Model 5076 [employer] Novus [facility] PACEMAKER REMOTE CHECKon AV Delay Adaptive Paced Minimum (ms) 180 ms [facility] AV Delay Adaptive Sensed Minimum (ms) 150 ms [facility] AV Delay Adaptive Status DISABLED [facility] Battery Voltage (volts) 2.92 V [facility] Godfrey RA Pacing Amplitude (volts) 1.5 V [facility] Godfrey RA Pacing Polarity BI [facility] Godfrey RA Pacing Pulse Width (ms) 0.4 ms [facility] Godfrey RA Sensing Amplitude (mvolts) 0.3 mV [facility] Godfrey RA Sensing Blanking Period (ms) 150 ms [facility] Godfrey RA Sensing Polarity BI [facility] Godfrey RA Sensing Refractory Period (ms) Auto [facility] Godfrey RV Pacing Amplitude (volts) 2 V [facility] Godfrey RV Pacing Polarity BI [facility] Godfrey RV Pacing Pulse Width (ms) 0.4 ms [facility] Godfrey RV Sensing Amplitude (mvolts) 0.9 mV [facility] Godfrey RV Sensing Blanking Period (ms) 200 ms [facility] Godfrey RV Sensing Polarity BI [facility] Hysteresis Rate (bpm) DISABLED [facility] Lead1 Jorge KELLER [facility] Lead2 Jorge KELLER [facility] Location RV [facility] Location RA [facility] Lower Rate (bpm) 60 {beats}/min [facility] Max Sensor Rate (bmp) 130 {beats}/min [facility] Model [id number] COBOS [facility] PM-Device Mfg MDT [facility] PM-Percent Pacing (A) 99.48 % [facility] PM-Percent Pacing (V) 0.27 % [facility] PM-PMT Intervention ENABLED [facility] PM-PVC Intervention ENABLED [facility] PM-Rate Modulation Acceleration Reaction 30 s [facility] PM-Rate Modulation ADL Rate (bpm) 100 {beats}/min [facility] PM-Rate Modulation Deceleration Exercise [facility] PM-Rate Modulation Threshold MediumLow [facility] RA Bipolar Impedance ohms 418 ohm [facility] RA Unipolar Impedance ohms 399 ohm [facility] RV Bipolar Impedance ohms 532 ohm [facility] RV Unipolar Impedance 494 ohm [facility] Serial Number [id number] [facility] Serial Number [id number] [facility] Serial Number [id number] [facility] Thresh RA Capture Amplitude (volts) 0.5 V [facility] Thresh RA Capture Duration (ms) 0.4 ms [facility] Thresh RA Sensing Amplitude (mvolts) 3.125 mV [facility] Thresh RV Capture Amplitude (volts) 0.875 V [facility] Thresh RV Capture Duration (ms) 0.4 ms [facility] Thresh RV Sensing Amplitude (mvolts) 11.875 mV [facility] Tracking Rate (bpm) 130 {beats}/min [facility] 03/15/2024 Formattin g of this note [...] CARDIAC DATA AND REPORT, Scanned Documents section. [facility] CNOVon 03-07-2024 CNOV Office Visit (NEADFV ) -- CASSI RODRIGEZ ([id number]) 1950 F Date Time Provider Department 03/07/24 9:00 AM RANDA REILLY NEADFV During your visit today, we recorded the following information about you: Pulse Blood pressure Weight Height 85/minute 133/72 84.5 kg 1.575 m Randa Reilly MD 03/07/2024 1:16 PM Signed PROGRESS NOTE- [facility] DATE: March 07, 2024 Location: [facility] [place] Participants: patient, and provider HPI: Here for [...] I spent at least 50% of the [id number] time in counseling, explanation of diagnosis, planning of further management, and answering all questions. Randa Reilly MD [facility] [place] Referring Provider: LAUREN OTERO [[id number]] Allergies As of Date: 03/07/2024 Noted Allergy [...] sleep apnea) [G47.33] Order(s):[facility] [[id number]] Order #: [id number]: 1 CONSULT TO SLEEP MEDICINE - ADULT [[id number]] Order #: [id number]: 1 FUTURE CONSULT TO [facility] [[id number]] Order #: [id number]: 1 FUTURE Prescriptions as of 03/07/2024 - [...] Noted Resolve (more content not included)... Normal [facility] Albumin [Mass/volume] in Ser um or Plasmaon 03-03-2024 Albumin [Mass/Vol] 3.5 g/dL 2.9-4.4 [facility] Basophils Auto (Bld) [#/Vol] on 03-03-2024 Basophils (Bld) [#/Vol] 0.0 10 3/uL 0.0-0.1 [facility] Basophils/100 WBC Auto (Bld) on 03-03-2024 Basophils/100 WBC (Bld) 0.7 % 0.2-2.0 [facility] Eosinophils/100 WBC Auto (Bl d)on 03-03-2024 Eosinophils/100 WBC (Bld) 10.8 % High 0.9-7.0 [facility] Erythrocyte distribution wid th Auto (RBC) [Ratio]on 03-03-2024 Erythrocyte distribution width (RBC) [Ratio] 13.5 % 11.0-15.0 [facility] Estimated glomerular filtrat ion rate (GFR) non- Americanon 03-03-2024 GFR/1.73 sq M.predicted among non-blacks MDRD (S/P/Bld) [Vol rate/Area] 34 mL/min/{1.73_m2} Low >=60 [facility] Globulin Calc (S) [Mass/Vol] on 03-03-2024 Globulin (S) [Mass/Vol] 3.6 g/dL [facility] Hematocrit Auto (Bld) [Volum e fraction]on 03-03-2024 Hematocrit (Bld) [Volume fraction] 38.8 % 36.0-48.0 [facility] Hemoglobin [Mass/volume] in Bloodon 03-03-2024 Hemoglobin (Bld) [Mass/Vol] 11.9 g/dL Low 12.0-16.0 [facility] IgA [Mass/volume] in Serum o r Plasmaon 03-03-2024 IgA [Mass/Vol] 265 mg/dL 64-422 [facility] IgG [Mass/volume] in Serum o r Plasmaon 03-03-2024 IgG [Mass/Vol] 911 mg/dL [phone] [facility] IgM [Mass/volume] in Serum o r Plasmaon 03-03-2024 IgM [Mass/Vol] 64 mg/dL 26-217 [facility] Immunoglobulin light chains. kappa.free [Mass/volume] in Serumon 03-03-2024 Immunoglobulin light chains.kappa.free (S) [Mass/Vol] 44.7 mg/L Abnormal 3.3-19.4 [facility] Immunoglobulin light chains. kappa.free/Immunoglobulin light chains.lambda.free [Yanelis 03-03-2024 Immunoglobulin light chains.kappa.free/Immun oglobulin light chains.lambda.free (S) [Mass ratio] 1.16 0.26-1.65 [facility] Comment on above: Performed at: [address] [id number] Director: Junaid Sawyer PhD, Phone: [phone] Immunoglobulin light chains. lambda.free [Mass/volume] in Serum or Plasmaon 03-03-2024 Immunoglobulin light chains.lambda.free [Mass/Vol] 38.7 mg/L Abnormal 5.7-26.3 [facility] Iron binding capacity [Mass/ volume] in Serum or Plasmaon 03-03-2024 Iron binding capacity [Mass/Vol] 338.0 ug/dL 250.0-450. 0 [facility] Iron saturation [Mass Fracti on] in Serum or Plasmaon 03-03-2024 Iron saturation [Mass fraction] 7.7 % [facility] Laboratory - Chemistry and C hemistry - challengeon 03-03-2024 Albumin [Mass/Vol] 3.3 g/dL Low 3.4-5.0 [facility] ALP [Catalytic activity/Vol] 155 U/L High 46-116 [facility] ALT [Catalytic activity/Vol] 21 U/L 14-59 [facility] AST [Catalytic activity/Vol] 25 U/L 15-37 [facility] Bilirubin [Mass/Vol] 0.4 mg/dL 0.2-1.0 [facility] Calcium [Mass/Vol] 9.0 mg/dL 8.5-10.1 [facility] Chloride [Moles/Vol] 106 mmol/L 98-107 [facility] CO2 [Moles/Vol] 21.4 mmol/L 21.0-32.0 [facility] Cobalamin (Vitamin B12) [Mass/Vol] 495.0 pg/mL 193.0-986. 0 [facility] Creatinine [Mass/Vol] 1.50 mg/dL High 0.55-1.02 [facility] Ferritin [Mass/Vol] 19.0 ng/mL 8.0-252.0 [facility] GFR/1.73 sq M.predicted MDRD (S/P/Bld) [Vol rate/Area] 41 mL/min/{1.73_m2} Low >=60 [facility] Glucose [Mass/Vol] 113 mg/dL High 74-106 [facility] Iron [Mass/Vol] 26.0 ug/dL Low 50.0-170.0 [facility] Potassium [Moles/Vol] 4.3 mmol/L 3.5-5.1 [facility] Protein [Mass/Vol] 6.9 g/dL 6.4-8.2 [facility] [facility] Sodium [Moles/Vol] 139 mmol/L 136-145 [facility] Urea nitrogen [Mass/Vol] 25.0 mg/dL High 7.0-18.0 [facility] Urea nitrogen/Creatinine [Mass ratio] 16.7 mg/mg [facility] Laboratory - Hematology and Cell countson 03-03-2024 Immature granulocytes/100 WBC (Bld) 0.0 % 0.0-0.5 [facility] Leukocytes [#/volume] correc tanesha for nucleated erythrocytes in Blood by Automated counon 03-03-2024 WBC corrected for nucl RBC Auto (Bld) [#/Vol] 2.8 10 3/uL Low 4.0-11.0 [facility] Lymphocytes Auto (Bld) [#/Vo l]on 03-03-2024 Lymphocytes (Bld) [#/Vol] 0.8 10 3/uL Low 1.2-3.8 [facility] Lymphocytes/100 WBC Auto (Bl d)on 03-03-2024 Lymphocytes/100 WBC (Bld) 27.6 % 20.5-60.0 [facility] MCH Auto (RBC) [Entitic mass ]on 03-03-2024 MCH (RBC) [Entitic mass] 28.8 pg 26.7-34.0 [facility] MCHC Auto (RBC) [Mass/Vol]on 03-03-2024 MCHC (RBC) [Mass/Vol] 30.7 g/dL 29.9-35.2 [facility] MCV Auto (RBC) [Entitic vol] on 03-03-2024 MCV (RBC) [Entitic vol] 93.9 fL 81.0-99.0 [facility] Monocytes Auto (Bld) [#/Vol] on 03-03-2024 Monocytes (Bld) [#/Vol] 0.3 10 3/uL 0.3-0.8 [facility] Monocytes/100 WBC Auto (Bld) on 03-03-2024 Monocytes/100 WBC (Bld) 9.7 % 1.7-12.0 [facility] Neutrophils Auto (Bld) [#/Vo l]on 03-03-2024 Neutrophils (Bld) [#/Vol] 1.4 10 3/uL 1.4-6.5 [facility] Neutrophils/100 WBC Auto (Bl d)on 03-03-2024 Neutrophils/100 WBC (Bld) 51.2 % 43.0-75.0 [facility] No Panel Informationon 03-03 Eosinophils # (Auto) 0.3 10 3/uL 0.0-0.7 [facility] Folate 9.50 ng/mL 8.60-58.90 [facility] Immature Granulocyte # (Auto) 0.00 10 3/uL 0.00-0.03 [facility] Protein Electrophoresis M-Miguel Not Observed g/dL Not Observed [facility] Protein Electrophoresis Note Comment . [facility] Comment on above: Protein electrophore sis scan will follow via computer,mail, or director non profit delivery. Platelet mean volume Auto (B ld) [Entitic vol]on 03-03-2024 Platelet mean volume (Bld) [Entitic vol] 9.4 fL Low 9.5-13.5 [facility] Platelets Auto (Bld) [#/Vol] on 03-03-2024 Platelets (Bld) [#/Vol] 203 10 3/uL 150-450 [facility] Protein [Mass/volume] in Ser um or Plasmaon 03-03-2024 Protein [Mass/Vol] 6.2 g/dL 6.0-8.5 [facility] RBC Auto (Bld) [#/Vol]on RBC (Bld) [#/Vol] 4.13 10 6/uL Low 4.20-5.40 [facility] Serum globulin measurement ( mass/volume)on 03-03-2024 Globulin (S) [Mass/Vol] 2.7 g/dL 2.2-3.9 [facility] Serum or plasma albumin/glob ulin mass ratioon 03-03-2024 Albumin/Globulin [Mass ratio] 0.9 {ratio} [facility] Albumin/Globulin [Mass ratio] 1.3 {ratio} 0.7-1.7 [facility] Serum or plasma alpha 1 glob ulin measurement by electrophoresis (mass/volume)on 03-03-2024 Alpha 1 globulin Elph [Mass/Vol] 0.3 g/dL 0.0-0.4 [facility] Serum or plasma alpha 2 glob ulin measurement by electrophoresis (mass/volume)on 03-03-2024 Alpha 2 globulin Elph [Mass/Vol] 0.7 g/dL 0.4-1.0 [facility] Serum or plasma anion gap de terminationon 03-03-2024 Anion gap [Moles/Vol] 15.9 mmol/L [facility] or plasma beta globuli n measurement by electrophoresis (mass/volume)on 03-03-2024 Beta globulin Elph [Mass/Vol] 1.0 g/dL 0.7-1.3 [facility] Serum or plasma gamma globul in measurement by electrophoresis (mass/volume)on 03-03-2024 Gamma globulin Elph [Mass/Vol] 0.8 g/dL 0.4-1.8 [facility] Serum or plasma immunoelectr ophoresis interpretationon 03-03-2024 Interpretation IEP [Interp] Comment . [facility] Comment on above: No monoclonality det ected. Estimated glomerular filtrat ion rate (GFR) non- Americanon 02-10-2024 GFR/1.73 sq M.predicted among non-blacks MDRD (S/P/Bld) [Vol rate/Area] 27 mL/min/{1.73_m2} >=60 [facility] Globulin Calc (S) [Mass/Vol] on 02-10-2024 Globulin (S) [Mass/Vol] 3.7 g/dL [facility] Laboratory - Chemistry and C hemistry - challengeon 02-10-2024 Albumin [Mass/Vol] 3.3 g/dL 3.4-5.0 [facility] ALP [Catalytic activity/Vol] 174 U/L 46-116 [facility] ALT [Catalytic activity/Vol] 24 U/L 14-59 [facility] Amylase [Catalytic activity/Vol] 16 U/L 25-115 [facility] AST [Catalytic activity/Vol] 19 U/L 15-37 [facility] Bilirubin [Mass/Vol] 0.4 mg/dL 0.2-1.0 [facility] Calcium [Mass/Vol] 8.6 mg/dL 8.5-10.1 [facility] Chloride [Moles/Vol] 107 mmol/L 98-107 [facility] CO2 [Moles/Vol] 26.8 mmol/L 21.0-32.0 [facility] Creatinine [Mass/Vol] 1.81 mg/dL 0.55-1.02 [facility] GFR/1.73 sq M.predicted MDRD (S/P/Bld) [Vol rate/Area] 33 mL/min/{1.73_m2} >=60 [facility] Glucose [Mass/Vol] 85 mg/dL 74-106 [facility] Lipase [Catalytic activity/Vol] 13.0 U/L 16.0-77.0 [facility] Potassium [Moles/Vol] 4.6 mmol/L 3.5-5.1 [facility] Protein [Mass/Vol] 7.0 g/dL 6.4-8.2 [facility] Sodium [Moles/Vol] 143 mmol/L 136-145 [facility] Urea nitrogen [Mass/Vol] 25.0 mg/dL 7.0-18.0 [facility] Urea nitrogen/Creatinine [Mass ratio] 13.8 mg/mg [facility] Serum or plasma albumin/glob ulin mass ratioon 02-10-2024 Albumin/Globulin [Mass ratio] 0.9 {ratio} [facility] Serum or plasma anion gap de terminationon 02-10-2024 Anion gap [Moles/Vol] 13.8 mmol/L [facility] Serum or plasma cancer antig en 19-9 measurement (units/volume)on 02-10-2024 Cancer Ag 19-9 Qn 13 [arb'U]/mL 0-35 [facility] Comment on above: [employer] El ectrochemiluminescence Immunoassay(ECLIA)Values obtained with different assay methods or kits cannotbe used interchangeably. Results cannot be interpreted asabsolute evidence of the presence or absence of malignantdisease.Performed at: [facility] [address] [id number] Director: Junaid Sawyer PhD, Phone: [phone] CNOVon 12-23-2023 CNOV Office Visit (NEEPFV ) -- CASSI RODRIGEZ ([id number]) 1950 F Date Time Provider Department 12/23/23 9:00 AM ALEJANDRO VILLAR NEEPFV During your visit today, we recorded the following information about you: Temperature Pulse Blood pressure Weight 97.6 degrees 85/minute 133/72 86.6 kg Height 1.575 m Alejandro Villar MD, PhD 12/23/2023 1:37 PM Signed [facility] EPILEPSY CENTER CHIEF COMPLAINT: Patient [...] [facility] but at this time [...] There is no focal weakness. 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 Normal [facility] CASSI RODRIGEZ ([id number]) 1950 F Date Time Provider Department 09/13/23 MIRIAN BELL During your visit today, we recorded the following information about you: Brenda Hodges RN 09/13/2023 8:00 AM Signed Received medical records from [facility] and scanned into chart for review. Mirian Bell APRN.CNP 09/13/2023 1:54 PM Signed Thank you reviewed scan documents. Mirian Bell APRN.NUISANCE WILDLIFE CONTROL OPERATOR Allergies As of Date: 09/13/2023 Noted Allergy [...] Encounter Status:Closed by MIRIAN BELL on 09/13/23 [facility] CNOVon 09-08-2023 CNOV Office Visit (CARDAV ) -- JACECASSI ([id number]) 1950 F Date Time Provider Department 09/08/23 2:30 PM MIRIAN BELL During your visit today, we recorded the following information about you: Pulse Blood pressure Weight Height 62/minute 130/64 86.5 kg 1.575 m Mirian Bell APRN.CNP 09/08/2023 3:29 PM Signed [facility] Department of Cardiovascular Medicine SECTION OF CARDIAC PACING and ELECTROPHYSIOLOGY OUTPATIENT VISIT DATE September 08, 2023 OUTPATIENT VISIT TYPE ESTABLISHED PRIMARY CARE PHYSICIAN: Broderick Howard ([facility] [place] [address] CHIEF COMPLAINT: follow up device management HISTORY [...] right leg DVT (2012), seizure, SHELL, IBS, medical terminologist anticoagulation. Moderate functional capacity (active with ADL, [...] included)... Normal [facility] [id number] 09-08-2023 ECG01 Ventricular Rate : 6 2 BPM Atrial Rate : 62 BPM P-R Interval : 194 ms QRS Duration : 76 ms Q-T Interval : 424 ms QTC Calculation(Bazett) : 430 ms Calculated P [place] : 57 degrees Calculated R [place] : 70 degrees Calculated T [place] : 76 degrees ATRIAL-PACED RHYTHM Confirmed by KALIN AGUILA MD ([id number]) on 09/12/2023 10:29:58 PM NAME : CASSI RODRIGEZ PID : [id number] : 1950 Gender : Female Race : ORD : Procedure Date : Sep 08 2023 15:00:29 Edit Date : Sep 12 2023 22:29:59 Diagnosis: ATRIAL-PACED RHYTHM Confirmed by KALIN AGUILA MD ([id number]) on 09/12/2023 10:29:58 PM Test Reason : Location : 192 : AVCRD Overread By : KALIN AGUILA MD Edited By : KALIN AGUILA MD Referred By : , Acquired by : , Normal [facility] ECG01 Ventricular Rate : 6 4 BPM Atrial Rate : 64 BPM P-R Interval : 200 ms QRS Duration : 80 ms Q-T Interval : 406 ms QTC Calculation(Bazett) : 418 ms Calculated P [place] : 94 degrees Calculated R [place] : 94 degrees Calculated T [place] : 83 degrees SUSPECT ARM LEAD REVERSAL, PLEASE REPEAT ATRIAL-PACED RHYTHM RIGHT AXIS LOW VOLTAGE QRS, CONSIDER PULMONARY DISEASE, PERICARDIAL EFFUSION, OR NORMAL VARIANT ABNORMAL ECG Confirmed by KALIN AGUILA MD ([id number]) on 09/12/2023 10:29:06 PM NAME : CASSI RODRIGEZ PID : [id number] : 1950 Gender : Female Race : ORD : Procedure Date : Sep 08 2023 14:58:41 Edit Date : Sep 12 2023 22:29:09 Diagnosis: SUSPECT ARM LEAD REVERSAL, PLEASE REPEAT ATRIAL-PACED RHYTHM RIGHT AXIS LOW VOLTAGE QRS, CONSIDER PULMONARY DISEASE, PERICARDIAL EFFUSION, OR NORMAL VARIANT ABNORMAL ECG Confirmed by KALIN AGUILA MD ([id number]) on 09/12/2023 10:29:06 PM Test Reason : Location : 192 : AVCRD Overread By : KALIN AGUILA MD Edited By : KALIN AGUILA MD Referred By : , Acquired by : , Normal [facility] No Panel Informationon 09-08 BLANK _ [facility] Implant Date 05/22/2015 [facility] Model 5076 [employer]SureFix Novus [facility] CHECKon AV Delay Adaptive Paced Minimum (ms) 180 ms [facility] AV Delay Adaptive Sensed Minimum (ms) 150 ms [facility] AV Delay Adaptive Status DISABLED [facility] Battery Voltage (volts) 2.94 V [facility] Godfrey RA Pacing Amplitude (volts) 1.5 V [facility] Godfrey RA Pacing Polarity BI [facility] Godfrey RA Pacing Pulse Width (ms) 0.4 ms [facility] Godfrey RA Sensing Amplitude (mvolts) 0.3 mV [facility] Godfrey RA Sensing Blanking Period (ms) 150 ms [facility] Godfrey RA Sensing Polarity BI [facility] Godfrey RA Sensing Refractory Period (ms) Auto [facility] Godfrey RV Pacing Amplitude (volts) 2 V [facility] Godfrey RV Pacing Polarity BI [facility] Godfrey RV Pacing Pulse Width (ms) 0.4 ms [facility] Godfrey RV Sensing Amplitude (mvolts) 0.9 mV [facility] Godfrey RV Sensing Blanking Period (ms) 200 ms [facility] Godfrey RV Sensing Polarity BI [facility] Hysteresis Rate (bpm) DISABLED [facility] Lead1 Mfg MDT [facility] Lead2 Mfg MDT [facility] Location RV [facility] Location RA [facility] Lower Rate (bpm) 60 {beats}/min [facility] Max Sensor Rate (bmp) 130 {beats}/min [facility] Model [id number] COBOS [facility] PM-Device Mfg ARIANNA [facility] PM-Percent Pacing (A) 99.4 % [facility] PM-Percent Pacing (V) 0.24 % [facility] PM-PMT Intervention ENABLED [facility] PM-PVC Intervention ENABLED [facility] PM-Rate Modulation Acceleration Reaction 30 s [facility] PM-Rate Modulation ADL Rate (bpm) 100 {beats}/min [facility] PM-Rate Modulation Deceleration Exercise [facility] PM-Rate Modulation Threshold MediumLow [facility] RA Bipolar Impedance ohms 456 ohm [facility] RA Unipolar Impedance ohms 418 ohm [facility] RV Bipolar Impedance ohms 551 ohm [facility] RV Unipolar Impedance 532 ohm [facility] Serial Number [id number] [facility] Serial Number [id number] [facility] Serial Number [id number] [facility] Thresh RA Capture Amplitude (volts) 0.5 V [facility] Thresh RA Capture Duration (ms) 0.4 ms [facility] Thresh RA Sensing Amplitude (mvolts) 1.5 mV [facility] Thresh RV Capture Amplitude (volts) 0.75 V [facility] Thresh RV Capture Duration (ms) 0.4 ms [facility] Thresh RV Sensing Amplitude (mvolts) 13.125 mV [facility] Tracking Rate (bpm) 130 {beats}/min [facility] Complete Blood Count Auto Di ffon 08-12-2023 Basophils (Bld) [#/Vol] 0.0 10*3/uL Normal 0.0-0.2 [facility] Comment on above: Order Comment: Reaso n for Exam Lumbar spondylosis;Postoperative wound infection Result Comment: PERF ORMED BY: [place] [address] PATHOLOGIST DAIRY BAR MANAGER LELE FALK M.D. Performed By: #### P T, PTT #### [address] Basophils/100 WBC (Bld) 0.5 % Normal . T [facility] Comment on above: Order Comment: Reaso n for Exam Lumbar spondylosis;Postoperative wound infection Performed By: #### P T, PTT #### [address] Eosinophils (Bld) [#/Vol] 0.2 10*3/uL Normal 0.0-0.45 [facility] Comment on above: Order Comment: Reaso n for Exam Lumbar spondylosis;Postoperative wound infection Performed By: #### P T, PTT #### [place] [address] [place] Eosinophils/100 WBC (Bld) 4.4 % Normal . [facility] Comment on above: Order Comment: Reaso n for Exam Lumbar spondylosis;Postoperative wound infection Performed By: #### P T, PTT #### [address] Erythrocyte distribution width (RBC) [Ratio] 13.3 % Normal 11.9-15.3 [facility] Comment on above: Order Comment: Reaso n for Exam Lumbar spondylosis;Postoperative wound infection Performed By: #### P T, PTT #### [address] Hematocrit (Bld) [Volume fraction] 28.8 % Low 34.0-46.4 [facility] Comment on above: Order Comment: Reaso n for Exam Lumbar spondylosis;Postoperative wound infection Performed By: #### P T, PTT #### [address] [place] [address] [place] Hemoglobin (Bld) [Mass/Vol] 9.6 g/dL Low 11.8-15.4 [facility] Comment on above: Order Comment: Reaso n for Exam Lumbar spondylosis;Postoperative wound infection Performed By: #### P T, PTT #### [address] Lymphocytes (Bld) [#/Vol] 0.6 10*3/uL Low 1.00-4.8 [facility] Comment on above: Order Comment: Reaso n for Exam Lumbar spondylosis;Postoperative wound infection Performed By: #### P T, PTT #### [address] Lymphocytes/100 WBC (Bld) 14.8 % Normal . [facility] Comment on above: Order Comment: Reaso n for Exam Lumbar spondylosis;Postoperative wound infection Performed By: #### P T, PTT #### [address] MCH (RBC) [Entitic mass] 31.9 pg Normal 24.7-34.3 [facility] Comment on above: Order Comment: Reaso n for Exam Lumbar spondylosis;Postoperative wound infection Performed By: #### P T, PTT #### [address] MCV (RBC) [Entitic vol] 95.0 fL Normal 80-100 T [facility] Comment on above: Order Comment: Reaso n for Exam Lumbar spondylosis;Postoperative wound infection Performed By: #### P T, PTT #### [address] Mean Corpuscular HGB Conc 33.5 g/dL Normal 32.0-35.0 [facility] Comment on above: Order Comment: Reaso n for Exam Lumbar spondylosis;Postoperative wound infection Performed By: #### P T, PTT #### [address] Monocytes (Bld) [#/Vol] 0.3 10*3/uL Normal 0.0-0.8 [facility] Comment on above: Order Comment: Reaso n for Exam Lumbar spondylosis;Postoperative wound infection Performed By: #### P T, PTT #### [facility] [address] [place] [address] [place] Monocytes/100 WBC (Bld) 7.5 % Normal . T he [facility] Comment on above: Order Comment: Reaso n for Exam Lumbar spondylosis;Postoperative wound infection Performed By: #### P T, PTT #### [facility] [address] [place] [address] [place] Neutrophils (Bld) [#/Vol] 3.1 10*3/uL Normal 1.8-7.7 [facility] Comment on above: Order Comment: Reaso n for Exam Lumbar spondylosis;Postoperative wound infection Performed By: #### P T, PTT #### [facility] [address] Neutrophils/100 WBC (Bld) 72.8 % Normal . [facility] Comment on above: Order Comment: Reaso n for Exam Lumbar spondylosis;Postoperative wound infection Performed By: #### P T, PTT #### [facility] [address] [place] [address] [place] NRBC% 0.1 /100{WBC} Normal 0-0.5 [facility] Comment on above: Order Comment: Reaso n for Exam Lumbar spondylosis;Postoperative wound infection Performed By: #### P T, PTT #### [facility] [address] [place] [address] [place] Platelet mean volume (Bld) [Entitic vol] 7.7 fL Normal 6.3-10.7 [facility] Comment on above: Order Comment: Reaso n for Exam Lumbar spondylosis;Postoperative wound infection Performed By: #### P T, PTT #### [facility] [address] [place] [id number] [place] Platelets (Bld) [#/Vol] 258 10*3/uL Normal 150-450 [facility] Comment on above: Order Comment: Reaso n for Exam Lumbar spondylosis;Postoperative wound infection Performed By: #### P T, PTT #### [facility] [address] [place] [address] [place] RBC (Bld) [#/Vol] 3.03 10*6/uL Low 3.60-5.00 [facility] Comment on above: Order Comment: Reaso n for Exam Lumbar spondylosis;Postoperative wound infection Performed By: #### P T, PTT #### [facility] [address] [place] [address] WBC (Bld) [#/Vol] 4.3 10*3/uL Normal 3.8-11.6 [facility] Comment on above: Order Comment: Reaso n for Exam Lumbar spondylosis;Postoperative wound infection Performed By: #### P T, PTT #### [facility] [address] [place] [address] Partial Thromboplastin Timeo n 08-12-2023 aPTT Coag (Bld) [Time] 46.9 s High 25.1-36.5 Th e [facility] Comment on above: Order Comment: Reaso n for Exam Lumbar spondylosis;Postoperative wound infection List the anticoagulant: ASPIRIN Result Comment: A he matocrit value greater than 55% may lead to inaccurate results in coagulation testing. Patients having hematocrit values >55% require a special collection tube for coagulation studies. Please contact the laboratory at [phone] for redraw instructions. PERFORMED BY: [place] [address] PATHOLOGIST DAIRY BAR MANAGER LELE FALK M.D. Performed By: #### P T, PTT #### [address] Prothrombin Time INRon 08-12 INR Coag (PPP) [Relative time] 2.5 {INR} Normal [facility] Comment on above: Order Comment: [...] Performed By: #### P T, PTT #### [address] PT Coag (PPP) [Time] 29.5 s High 9.0-12.9 [facility] Comment on above: Order Comment: Reaso n for Exam Lumbar spondylosis;Postoperative wound infection List the anticoagulant: ASPIRIN Result Comment: A he matocrit value greater than 55% may lead to inaccurate results in coagulation testing. Patients having hematocrit values >55% require a special collection tube for coagulation studies. Please contact the laboratory at [phone] for redraw instructions. Performed By: #### P T, PTT #### [address] Automated basophil %Ordered By: Niki Blades on 08-05-2023 Basophils/100 WBC (Bld) 0.2 % Normal . [facility] Comment on above: Performed By: #### P T, PTT #### [address] Automated basophil countOrde red By: Niki Blades on 08-05-2023 Basophils (Bld) [#/Vol] 0.0 10*3/uL Normal 0.0-0.2 [facility] Comment on above: Result Comment: PERF ORMED BY: [place] [address] PATHOLOGIST DAIRY BAR MANAGER LELE FALK M.D. Performed By: #### P T, PTT #### [address] Automated blood monocyte cou ntOrdered By: Niki Blades on 08-05-2023 Monocytes (Bld) [#/Vol] 0.7 10*3/uL Normal 0.0-0.8 [facility] Comment on above: Performed By: #### P T, PTT #### [address] Automated eosinophil %Ordere d By: Niki Blades on 08-05-2023 Eosinophils/100 WBC (Bld) 1.7 % Normal . [facility] Comment on above: Performed By: #### P T, PTT #### [address] Automated eosinophil countOr dered By: Niki Blades on 08-05-2023 Eosinophils (Bld) [#/Vol] 0.1 10*3/uL Normal 0.0-0.45 [facility] Comment on above: Performed By: #### P T, PTT #### [address] Automated monocyte %Ordered By: Niki Blades on 08-05-2023 Monocytes/100 WBC (Bld) 9.2 % Normal . [facility] Comment on above: Performed By: #### P T, PTT #### [address] Automated neutrophil %Ordere d By: Niki Blades on 08-05-2023 Neutrophils/100 WBC (Bld) 77.1 % Normal . [facility] Comment on above: Performed By: #### P T, PTT #### [address] Basic Metabolic Panelon 07-17 Creatinine Clr Calc Pharmacy 38.09 Normal [facility] Comment on above: Result Comment: PERF ORMED BY: [place] [address] PATHOLOGIST DAIRY BAR MANAGER LELE FALK M.D. Performed By: #### P T, PTT #### [address] GFR/1.73 sq M.predicted MDRD (S/P/Bld) [Vol rate/Area] 38.727 mL/min/{1.73_m2} Normal [facility] Comment on above: Performed By: #### P T, PTT #### [address] Calcium [Mass/volume] in Ser um or PlasmaOrdered By: Niki Blades on 08-05-2023 Calcium [Mass/Vol] 8.1 mg/dL Low 8.6-10.3 [facility] Comment on above: Performed By: #### P T, PTT #### [facility] [address] [place] [address] Carbon dioxide, total [Moles /volume] in Serum or PlasmaOrdered By: Niki Blades on 08-05-2023 CO2 [Moles/Vol] 25.2 mmol/L Normal 21.0-31.0 [facility] Comment on above: Performed By: #### P T, PTT #### [address] Chloride [Moles/volume] in S akila or PlasmaOrdered By: Niki Blades on 08-05-2023 Chloride [Moles/Vol] 111 mmol/L High 98-107 [facility] Comment on above: Performed By: #### P T, PTT #### [address] Complete Blood Count Auto Di ffon 08-05-2023 Mean Corpuscular HGB Conc 33.5 g/dL Normal 32.0-35.0 [facility] Comment on above: Performed By: #### P T, PTT #### [address] NRBC% 0.4 /100{WBC} Normal 0-0.5 [facility] Comment on above: Performed By: #### P T, PTT #### [facility] [address] [place] [address] Creatinine [Mass/volume] in Serum or PlasmaOrdered By: Niki Blades on 08-05-2023 Creatinine [Mass/Vol] 1.43 mg/dL High 0.60-1.20 [facility] Comment on above: Performed By: #### P T, PTT #### [address] Erythrocyte distribution wid th [Ratio] by Automated countOrdered By: Niki Blades on 08-05-2023 Erythrocyte distribution width (RBC) [Ratio] 13.5 % Normal 11.9-15.3 [facility] Comment on above: Performed By: #### P T, PTT #### [facility] [address] [place] [address] [place] Erythrocytes [#/volume] in B lood by Automated countOrdered By: Niki Weeks on 08-05-2023 RBC (Bld) [#/Vol] 3.14 10*6/uL Low 3.60-5.00 [facility] Comment on above: Performed By: #### P T, PTT #### [facility] [address] [place] [address] [place] Glucose [Mass/volume] in Ser um or PlasmaOrdered By: Niki Weeks on 08-05-2023 Glucose [Mass/Vol] 121 mg/dL High 70-100 [facility] Comment on above: ADA recommended refe rence rangeRandom Glucose Reference Range is dependent on time and content of last meal. Glucose of more than 200 mg/dL in a nonstressed, ambulatory subject supports the diagnosis of Diabetes Mellitus. Result Comment: [place] om Glucose Reference Range is dependent on time and content of last meal. Glucose of more than 200 mg/dL in a nonstressed, ambulatory subject supports the diagnosis of Diabetes Mellitus. ADA recommended reference range Performed By: #### P T, PTT #### [facility] [address] Hematocrit [Volume Fraction] of Blood by Automated countOrdered By: Niki Weeks on 08-05-2023 Hematocrit (Bld) [Volume fraction] 29.9 % Low 34.0-46.4 [facility] Comment on above: Performed By: #### P T, PTT #### [facility] [address] Hemoglobin [Mass/volume] in BloodOrdered By: Niki Weeks on 08-05-2023 Hemoglobin (Bld) [Mass/Vol] 10.0 g/dL Low 11.8-15.4 [facility] Comment on above: Performed By: #### P T, PTT #### [facility] [address] [place] [address] [place] Leukocytes [#/volume] correc tanesha for nucleated erythrocytes in Blood by Automated counOrdered By: Niki Blades on 08-05-2023 WBC corrected for nucl RBC Auto (Bld) [#/Vol] 7.3 10*3/uL 3.8-11.6 [facility] Leukocytes [#/volume] in Blo od by Automated countOrdered By: Niki Blades on 08-05-2023 WBC (Bld) [#/Vol] 7.3 10*3/uL Normal 3.8-11.6 [facility] Comment on above: Performed By: #### P T, PTT #### [facility] [address] [place] [address] [place] Lymphocytes [#/volume] in Bl ood by Automated countOrdered By: Niki Blades on 08-05-2023 Lymphocytes (Bld) [#/Vol] 0.9 10*3/uL Low 1.00-4.8 [facility] Comment on above: Performed By: #### P T, PTT #### [facility] [address] [place] [address] Lymphocytes/100 leukocytes i n Blood by Automated countOrdered By: Niki Blades on 08-05-2023 Lymphocytes/100 WBC (Bld) 11.8 % Normal . [facility] Comment on above: Performed By: #### P T, PTT #### [address] MCH [Entitic mass] by Automa tanesha countOrdered By: Niki Blades on 08-05-2023 MCH (RBC) [Entitic mass] 31.9 pg Normal 24.7-34.3 [facility] Comment on above: Performed By: #### P T, PTT #### [facility] [address] [place] [address] MCHC Auto (RBC) [Mass/Vol]Or dered By: Niki Blades on 08-05-2023 MCHC (RBC) [Mass/Vol] 33.5 g/dL 32.0-35.0 [facility] MCV [Entitic volume] by Auto mated countOrdered By: Niki Blades on 08-05-2023 MCV (RBC) [Entitic vol] 95.1 fL Normal 80-100 [facility] Comment on above: Performed By: #### P T, PTT #### [facility] [address] [place] [address] Neutrophils [#/volume] in Bl ood by Automated countOrdered By: Niki Blades on 08-05-2023 Neutrophils (Bld) [#/Vol] 5.6 10*3/uL Normal 1.8-7.7 [facility] Comment on above: Performed By: #### P T, PTT #### [facility] [address] [place] [address] No Panel InformationOrdered By: Niki Blades on 08-05-2023 Estimated GFR (CKD-EPI) 38.727 mL/Min [facility] Creatinine Clearance (Chem 38.09 [facility] Nucleated erythrocytes [Pres ence] in Blood by Automated countOrdered By: Niki Blades on 08-05-2023 Nucleated RBC Auto Ql (Bld) 0.4 /100{WBC} 0-0.5 [facility] Platelet mean volume [Entiti c volume] in Blood by Automated countOrdered By: Niki Blades on 08-05-2023 Platelet mean volume (Bld) [Entitic vol] 7.6 fL Normal 6.3-10.7 [facility] Comment on above: Performed By: #### P T, PTT #### [facility] [address] [place] [address] Platelets [#/volume] in Bloo d by Automated countOrdered By: Niki Blades on 08-05-2023 Platelets (Bld) [#/Vol] 147 10*3/uL Low 150-450 [facility] Comment on above: Performed By: #### P T, PTT #### [address] Potassium [Moles/volume] in Serum or PlasmaOrdered By: Niki Blades on 08-05-2023 Potassium [Moles/Vol] 4.4 mmol/L Normal 3.5-5.1 [facility] Comment on above: Performed By: #### P T, PTT #### [address] Serum or plasma anion gap de terminationOrdered By: Niki Blades on 08-05-2023 Anion gap [Moles/Vol] 7.2 mmol/L Normal 6.0-15.0 [facility] Comment on above: Performed By: #### P T, PTT #### [address] Sodium [Moles/volume] in Ser um or PlasmaOrdered By: Niki Blades on 08-05-2023 Sodium [Moles/Vol] 139 mmol/L Normal 136-145 [facility] Comment on above: Performed By: #### P T, PTT #### [address] Urea nitrogen [Mass/volume] in Serum or PlasmaOrdered By: Niki Blades on 08-05-2023 Urea nitrogen [Mass/Vol] 25 mg/dL Normal 7-25 [facility] Comment on above: Performed By: #### P T, PTT #### [address] Basic Metabolic Panelon 07-17 Anion gap [Moles/Vol] 7.9 mmol/L Normal 6.0-15.0 [facility] Comment on above: Performed By: #### B MP, CBC #### [address] Calcium [Mass/Vol] 7.4 mg/dL Low 8.6-10.3 [facility] Comment on above: Performed By: #### B MP, CBC #### [place] [address] [place] Chloride [Moles/Vol] 110 mmol/L High 98-107 [facility] Comment on above: Performed By: #### B MP, CBC #### [address] CO2 [Moles/Vol] 23.9 mmol/L Normal 21.0-31.0 [facility] Comment on above: Performed By: #### B MP, CBC #### [address] Creatinine [Mass/Vol] 1.48 mg/dL High 0.60-1.20 [facility] Comment on above: Performed By: #### B MP, CBC #### [place] [address] [place] Creatinine Clr Calc Pharmacy 34.66 Normal [facility] Comment on above: Result Comment: PERF ORMED BY: [place] [address] PATHOLOGIST [employer] LELE FALK M.D. Performed By: #### B MP, CBC #### [place] [address] [place] GFR/1.73 sq M.predicted MDRD (S/P/Bld) [Vol rate/Area] 37.163 mL/min/{1.73_m2} Normal [facility] Comment on above: Performed By: #### B MP, CBC #### [address] Glucose [Mass/Vol] 129 mg/dL High 70-100 [facility] Comment on above: Result Comment: [place] Glucose Reference Range is dependent on time and content of last meal. Glucose of more than 200 mg/dL in a nonstressed, ambulatory subject supports the diagnosis of Diabetes Mellitus. ADA recommended reference range Performed By: #### B MP, CBC #### [place] [address] [place] Potassium [Moles/Vol] 4.8 mmol/L Normal 3.5-5.1 [facility] Comment on above: Performed By: #### B MP, CBC #### [place] [address] [place] Sodium [Moles/Vol] 137 mmol/L Normal 136-145 [facility] Comment on above: Performed By: #### B MP, CBC #### [place] [address] [place] Urea nitrogen [Mass/Vol] 24 mg/dL Normal 7-25 [facility] Comment on above: Performed By: #### B MP, CBC #### [address] Complete Blood Count Auto Di ffon 08-04-2023 Basophils (Bld) [#/Vol] 0.0 10*3/uL Normal 0.0-0.2 [facility] Comment on above: Result Comment: PERF ORMED BY: [place] [address] PATHOLOGIST [employer] MA[employer] LELE FALK M.D. Performed By: #### B MP, CBC #### [address] Basophils/100 WBC (Bld) 0.0 % Normal . [facility] Comment on above: Performed By: #### B MP, CBC #### [address] Eosinophils (Bld) [#/Vol] 0.0 10*3/uL Normal 0.0-0.45 [facility] Comment on above: Performed By: #### B MP, CBC #### [address] Eosinophils/100 WBC (Bld) 0.0 % Normal . [facility] Comment on above: Performed By: #### B MP, CBC #### [address] Erythrocyte distribution width (RBC) [Ratio] 13.6 % Normal 11.9-15.3 [facility] Comment on above: Performed By: #### B MP, CBC #### [address] Hematocrit (Bld) [Volume fraction] 31.5 % Low 34.0-46.4 [facility] Comment on above: Performed By: #### B MP, CBC #### [address] Hemoglobin (Bld) [Mass/Vol] 10.5 g/dL Low 11.8-15.4 [facility] Comment on above: Performed By: #### B MP, CBC #### [address] Lymphocytes (Bld) [#/Vol] 0.5 10*3/uL Low 1.00-4.8 [facility] Comment on above: Performed By: #### B MP, CBC #### [address] Lymphocytes/100 WBC (Bld) 4.4 % Normal . [facility] Comment on above: Performed By: #### B MP, CBC #### [address] MCH (RBC) [Entitic mass] 31.6 pg Normal 24.7-34.3 [facility] Comment on above: Performed By: #### B MP, CBC #### [address] MCV (RBC) [Entitic vol] 94.8 fL Normal 80-100 [facility] Comment on above: Performed By: #### B MP, CBC #### [address] Mean Corpuscular HGB Conc 33.3 g/dL Normal 32.0-35.0 [facility] Comment on above: Performed By: #### B MP, CBC #### [address] Monocytes (Bld) [#/Vol] 0.5 10*3/uL Normal 0.0-0.8 [facility] Comment on above: Performed By: #### B MP, CBC #### [address] Monocytes/100 WBC (Bld) 4.0 % Normal . [facility] Comment on above: Performed By: #### B MP, CBC #### [address] Neutrophils (Bld) [#/Vol] 10.4 10*3/uL High 1.8-7.7 [facility] Comment on above: Performed By: #### B MP, CBC #### [address] Neutrophils/100 WBC (Bld) 91.6 % Normal . [facility] Comment on above: Performed By: #### B MP, CBC #### [facility] [address] NRBC% 0.1 /100{WBC} Normal 0-0.5 [facility] Comment on above: Performed By: #### B MP, CBC #### [address] Platelet mean volume (Bld) [Entitic vol] 7.8 fL Normal 6.3-10.7 [facility] Comment on above: Performed By: #### B MP, CBC #### [address] Platelets (Bld) [#/Vol] 172 10*3/uL Normal 150-450 [facility] Comment on above: Performed By: #### B MP, CBC #### [address] RBC (Bld) [#/Vol] 3.32 10*6/uL Low 3.60-5.00 [facility] Comment on above: Performed By: #### B MP, CBC #### [place] [address] [place] WBC (Bld) [#/Vol] 11.4 10*3/uL Normal 3.8-11.6 [facility] Comment on above: Performed By: #### B MP, CBC #### [address] ABO/Rh Retypeon 08-03-2023 ABO/RH Recheck Result Positive Normal [facility] Comment on above: Result Comment: PERF ORMED BY: [place] [address] PATHOLOGIST [employer] MA[employer] LELE FALK M.D. Activated partial thrombopla stin time (aPTT) in platelet poor plasma by coagulation aOrdered By: Cj Gamboa on 08-03-2023 aPTT Coag (PPP) [Time] 44.3 s 25.1-36.5 [facility] Comment on above: A hematocrit value g reater than 55% may lead to inaccurate results in coagulation testing. Patients having hematocrit values >55% require a special collection tube for coagulation studies. Please contact the laboratory at [phone] for redraw instructions. INR in Platelet poor plasma by Coagulation assayOrdered By: Cj Gamboa on 08-03-2023 INR Coag (PPP) [Relative time] 2.1 {INR} Normal [facility] Comment on above: INR Therapeutic [...] Performed By: #### P T, PTT #### [facility] [address] [place] [address] 08-03-2023 L ------ Specimen: [id number] Received: 08/03/23 Status: SHARON Russo Num: [id number] Spec Type: Surgical Subm Dr: Niki Weeks MD Tissues: A Gross Only (BACK FB) Procedures: Level 1 Gross Age/ Patient Sex Location Account Attending Physician Cassi Rodrigez 73/F 4N [id number] Niki Weeks MD SPEC NUM: [id number] RECD: 08/03/23 STATUS: SHARON RUSSO NUM: [id number] GRACIA: 08/03/23- [facility] DR: Niki Weeks MD ENTERED: 08/03/[address] [facility] [address]: YANET TYPE: Surgical DEPT: S [...] is taken. Gross examination only. CPT Codes 83518 Gross Photo Specimen: [id number] Received: 08/03/23 Status: SHARON Russo Num: [id number] Spec Type: Surgical Subm Dr: Niki Weeks MD Tissues: A Gross Only (BACK FB) Procedures: Level 1 Gross Patient: Cassi Rodrigez [id number] (Continued) Signed (signature on file) Prashanth Wynn MD 08/05/23921 Normal [facility] Partial Thromboplastin Timeo n 08-03-2023 aPTT Coag (Bld) [Time] 44.3 s High 25.1-36.5 [facility] Comment on above: Result Comment: A he matocrit value greater than 55% may lead to inaccurate results in coagulation testing. Patients having hematocrit values >55% require a special collection tube for coagulation studies. Please contact the laboratory at [phone] for redraw instructions. PERFORMED BY: [address] [address] PATHOLOGIST DAIR[employer] MANAGER LELE FALK M.D. Performed By: #### P T, PTT #### [facility] [address] [place] [address] [facility] Prothrombin time (PT)Ordered By: Cj Gamboa on 08-03-2023 PT Coag (PPP) [Time] 24.8 s High 9.0-12.9 [facility] Comment on above: A hematocrit value g reater than 55% may lead to inaccurate results in coagulation testing. Patients having hematocrit values >55% require a special collection tube for coagulation studies. Please contact the laboratory at [phone] for redraw instructions. Result Comment: A he matocrit value greater than 55% may lead to inaccurate results in coagulation testing. Patients having hematocrit values >55% require a special collection tube for coagulation studies. Please contact the laboratory at [phone] for redraw instructions. Performed By: #### P T, PTT #### [address] [address] [facility] Type and Screenon 08-03-2023 ABO and Rh group Nom (Bld) Blood group A Rh(D) positive Normal [facility] XR lumbar spine 1Von 023 XR lumbar spine 1V [facility] [address] [place] [address] XRay Report Signed Patient: Cassi Rodrigez MR#: [id number] 8 : 1950 Acct:[id number] Age/Sex: 73 / F ADM Date: 08/03/23 Loc: ID Room: Type: [facility] Attending Dr: Niki Weeks MD Copies [...] Paris Phoenix M.D.08/03/2023 9:50 AM Dictation Location: RADIO-PC-12 Transcribed By: [facility] 08/03/23949 Dictated By: Paris Phoenix MD 08/03/2347 Signed By: 08/03/23949 Normal [facility] Automated basophil %Ordered By: Niki Weeks on 07-20-2023 Basophils/100 WBC (Bld) 0.6 % Normal . [facility] Comment on above: Performed By: #### C BC, BMP #### [facility] [address] [place] [address] Automated basophil countOrde red By: Niki Weeks on 07-20-2023 Basophils (Bld) [#/Vol] 0.0 10*3/uL Normal 0.0-0.2 [facility] Comment on above: Result Comment: PERF ORMED BY: [place] [address] PATHOLOGIST [employer] MANA[employer] LELE FALK M.D. Performed By: #### C BC, BMP #### [facility] [address] Automated blood monocyte cou ntOrdered By: Niki Weeks on 07-20-2023 Monocytes (Bld) [#/Vol] 0.4 10*3/uL Normal 0.0-0.8 [facility] Comment on above: Performed By: #### C BC, BMP #### [facility] [address] [place] [address] [place] Automated eosinophil %Ordere d By: Niki Weeks on 07-20-2023 Eosinophils/100 WBC (Bld) 4.9 % Normal . [facility] Comment on above: Performed By: #### C BC, BMP #### [address] Automated eosinophil countOr dered By: Niki Blades on 07-20-2023 Eosinophils (Bld) [#/Vol] 0.3 10*3/uL Normal 0.0-0.45 [facility] Comment on above: Performed By: #### C BC, BMP #### [address] Automated monocyte %Ordered By: Niki Blades on 07-20-2023 Monocytes/100 WBC (Bld) 6.9 % Normal . [facility] Comment on above: Performed By: #### C BC, BMP #### [address] Automated neutrophil %Ordere d By: Inki Blades on 07-20-2023 Neutrophils/100 WBC (Bld) 73.8 % Normal . [facility] Comment on above: Performed By: #### C BC, BMP #### [address] Automated urine color determ inationOrdered By: Niki Rms on 07-20-2023 Color (U) Yellow Normal Yellow [facility] Comment on above: Order Comment: Name Collection Type:: Clean-Voided Midstream Performed By: #### U A #### [address] Basic Metabolic Panelon GFR/1.73 sq M.predicted MDRD (S/P/Bld) [Vol rate/Area] 35.992 mL/min/{1.73_m2} Normal [facility] Comment on above: Performed By: #### C BC, BMP #### [address] Bilirubin Test strip Ql (U)O rdered By: Niki Jags on 07-20-2023 Bilirubin Ql (U) Negative Negative [facility] Calcium [Mass/volume] in Ser um or PlasmaOrdered By: Niki Blades on 07-20-2023 Calcium [Mass/Vol] 8.6 mg/dL Normal 8.6-10.3 [facility] Comment on above: Result Comment: PERF ORMED BY: [place] [address] PATHOLOGIST DA[employer] MANAGER LELE FALK M.D. Performed By: #### C BC, BMP #### [address] Carbon dioxide, total [Moles /volume] in Serum or PlasmaOrdered By: Niki Blades on 07-20-2023 CO2 [Moles/Vol] 26.3 mmol/L Normal 21.0-31.0 [facility] Comment on above: Performed By: #### C BC, BMP #### [place] [address] [place] Chloride [Moles/volume] in S akila or PlasmaOrdered By: Niki Blades on 07-20-2023 Chloride [Moles/Vol] 109 mmol/L High 98-107 [facility] Comment on above: Performed By: #### C BC, BMP #### [address] Complete Blood Count Auto Di ffon 07-20-2023 Mean Corpuscular HGB Conc 33.0 g/dL Normal 32.0-35.0 [facility] Comment on above: Performed By: #### C BC, BMP #### [place] [address] [place] NRBC% 0.1 /100{WBC} Normal 0-0.5 [facility] Comment on above: Performed By: #### C BC, BMP #### [place] [address] [place] Creatinine [Mass/volume] in Serum or PlasmaOrdered By: Niki Blades on 07-20-2023 Creatinine [Mass/Vol] 1.52 mg/dL High 0.60-1.20 [facility] Comment on above: Performed By: #### C SUKUMAR, BMP #### [facility] [address] ECG 12 lead ECGon 07-20-2023 ECG 12 lead ECG [facility] [address] [place] [address] Electrocardiograph Report Signed Patient: Cassi Rodrigez MR#: [id number] 8 : 1950 Acct:[id number] Age/Sex: 73 / F ADM Date: 07/20/23 Loc: Room: Type: [facility] Attending Dr: Niki Weeks MD Ordering Provider: Nkii Weeks MD Date of Service: 07/20/2304/06/1046 ECG/ECG [...] Brock MD 0 07/20/23 1122 Normal [facility] Erythrocyte distribution wid th [Ratio] by Automated countOrdered By: Niki Weeks on 07-20-2023 Erythrocyte distribution width (RBC) [Ratio] 13.5 % Normal 11.9-15.3 [facility] Comment on above: Performed By: #### C SUKUMAR, BMP #### [facility] [address] Erythrocytes [#/volume] in B lood by Automated countOrdered By: Niki Weeks on 07-20-2023 RBC (Bld) [#/Vol] 4.09 10*6/uL Normal 3.60-5.00 [facility] Comment on above: Performed By: #### C SUKUMAR, BMP #### [facility] [address] Glucose [Mass/volume] in Ser um or PlasmaOrdered By: Niki Weeks on 07-20-2023 Glucose [Mass/Vol] 120 mg/dL High 70-100 [facility] Comment on above: ADA recommended refe rence rangeRandom Glucose Reference Range is dependent on time and content of last meal. Glucose of more than 200 mg/dL in a nonstressed, ambulatory subject supports the diagnosis of Diabetes Mellitus. Result Comment: [place] om Glucose Reference Range is dependent on time and content of last meal. Glucose of more than 200 mg/dL in a nonstressed, ambulatory subject supports the diagnosis of Diabetes Mellitus. ADA recommended reference range Performed By: #### C SUKUMAR, BMP #### [address] Hematocrit [Volume Fraction] of Blood by Automated countOrdered By: Niki Weeks on 07-20-2023 Hematocrit (Bld) [Volume fraction] 38.3 % Normal 34.0-46.4 [facility] Comment on above: Performed By: #### C SUKUMAR, BMP #### [address] Hemoglobin [Mass/volume] in BloodOrdered By: Niki Weeks on 07-20-2023 Hemoglobin (Bld) [Mass/Vol] 12.6 g/dL Normal 11.8-15.4 [facility] Comment on above: Performed By: #### C SUKUMAR, BMP #### [address] Ketones Auto test strip (U) [Mass/Vol]Ordered By: Niki Weeks on 07-20-2023 Ketones (U) [Mass/Vol] Negative Negative [facility] Leukocytes [#/volume] correc tanesha for nucleated erythrocytes in Blood by Automated counOrdered By: Niki Weeks on 07-20-2023 WBC corrected for nucl RBC Auto (Bld) [#/Vol] 5.2 10*3/uL 3.8-11.6 [facility] Leukocytes [#/volume] in Blo od by Automated countOrdered By: Niki Blades on 07-20-2023 WBC (Bld) [#/Vol] 5.2 10*3/uL Normal 3.8-11.6 [facility] Comment on above: Performed By: #### C BC, BMP #### [address] Lymphocytes [#/volume] in Bl ood by Automated countOrdered By: Niki Blades on 07-20-2023 Lymphocytes (Bld) [#/Vol] 0.7 10*3/uL Low 1.00-4.8 [facility] [facility] Comment on above: Performed By: #### C BC, BMP #### [address] Lymphocytes/100 leukocytes i n Blood by Automated countOrdered By: Niki Blades on 07-20-2023 Lymphocytes/100 WBC (Bld) 13.8 % Normal . [facility] Comment on above: Performed By: #### C BC, BMP #### [address] MCH [Entitic mass] by Automa tanesha countOrdered By: Niki Blades on 07-20-2023 MCH (RBC) [Entitic mass] 30.9 pg Normal 24.7-34.3 [facility] Comment on above: Performed By: #### C BC, BMP #### [address] MCHC Auto (RBC) [Mass/Vol]Or dered By: Niki Blades on 07-20-2023 MCHC (RBC) [Mass/Vol] 33.0 g/dL 32.0-35.0 [facility] MCV [Entitic volume] by Auto mated countOrdered By: Niki Blades on 07-20-2023 MCV (RBC) [Entitic vol] 93.7 fL Normal 80-100 [facility] Comment on above: Performed By: #### C BC, BMP #### [facility] [address] [place] [address] [place] Neutrophils [#/volume] in Bl ood by Automated countOrdered By: Niki Weeks on 07-20-2023 Neutrophils (Bld) [#/Vol] 3.8 10*3/uL Normal 1.8-7.7 [facility] Comment on above: Performed By: #### C BC, BMP #### [facility] [address] Nitrite Test strip Ql (U)Ord ered By: Niki Rms on 07-20-2023 Nitrite Ql (U) Negative Negative [facility] No Panel InformationOrdered By: Niki Weeks on 07-20-2023 Estimated GFR (CKD-EPI) 35.992 mL/Min [facility] Creatinine Clearance (Chem N/A [facility] Nucleated erythrocytes [Pres ence] in Blood by Automated countOrdered By: Niki Weeks on 07-20-2023 Nucleated RBC Auto Ql (Bld) 0.1 /100{WBC} 0-0.5 [facility] Platelet mean volume [Entiti c volume] in Blood by Automated countOrdered By: Niki Bladetina on 07-20-2023 Platelet mean volume (Bld) [Entitic vol] 7.2 fL Normal 6.3-10.7 [facility] Comment on above: Performed By: #### C SUKUMAR, BMP #### [facility] [address] [place] [address] [place] Platelets [#/volume] in Bloo d by Automated countOrdered By: Niki Weeks on 07-20-2023 Platelets (Bld) [#/Vol] 194 10*3/uL Normal 150-450 [facility] Comment on above: Performed By: #### C BC, BMP #### [facility] [address] Potassium [Moles/volume] in Serum or PlasmaOrdered By: Niki Bladetina on 07-20-2023 Potassium [Moles/Vol] 4.6 mmol/L Normal 3.5-5.1 [facility] Comment on above: Performed By: #### C SUKUMAR, BMP #### [address] Protein Auto test strip (U) [Mass/Vol]Ordered By: Niki Blades on 07-20-2023 Protein (U) [Mass/Vol] Negative Negative [facility] Serum or plasma anion gap de terminationOrdered By: Niki Blades on 07-20-2023 Anion gap [Moles/Vol] 9.3 mmol/L Normal 6.0-15.0 [facility] Comment on above: Performed By: #### C SUKUMAR, BMP #### [address] Sodium [Moles/volume] in Ser um or PlasmaOrdered By: Niki Blades on 07-20-2023 Sodium [Moles/Vol] 140 mmol/L Normal 136-145 [facility] Comment on above: Performed By: #### C SUKUMAR, BMP #### [address] Specific gravity Auto test s trip (U) [Rel density]Ordered By: Niki Blades on 07-20-2023 Specific gravity (U) [Rel density] 1.021 1.001-1.03 0 [facility] Urea nitrogen [Mass/volume] in Serum or PlasmaOrdered By: Niki Blades on 07-20-2023 Urea nitrogen [Mass/Vol] 30 mg/dL High 7-25 [facility] Comment on above: Performed By: #### C SUKUMAR, BMP #### [address] Urinalysison 07-20-2023 Appearance (U) Clear Normal Clear [facility] Comment on above: Order Comment: Name Collection Type:: Clean-Voided Midstream Performed By: #### U A #### [address] Bilirubin,Urine Negative Normal Negative [facility] Comment on above: Order Comment: Name Collection Type:: Clean-Voided Midstream Performed By: #### U A #### [address] Glucose Ql (U) Normal Normal Normal [facility] Comment on above: Order Comment: Name Collection Type:: Clean-Voided Midstream Performed By: #### U A #### [address] Ketones Ql (U) Negative Normal Negative [facility] Comment on above: Order Comment: Name Collection Type:: Clean-Voided Midstream Performed By: #### U A #### [address] Leukocyte esterase Test strip Ql (U) Negative Normal Negative [facility] Comment on above: Order Comment: Name Collection Type:: Clean-Voided Midstream Performed By: #### U A #### [place] [address] [place] Nitrite,Urine Negative Normal Negative [facility] Comment on above: Order Comment: Name Collection Type:: Clean-Voided Midstream Performed By: #### U A #### [place] [address] [place] Occult Blood,Urine Negative Normal Negative [facility] Comment on above: Order Comment: Name Collection Type:: Clean-Voided Midstream Result Comment: PERF ORMED BY: [place] [address] PATHOLOGIST [employer] MANAGER LELE FALK M.D. Performed By: #### U A #### [place] [address] [place] Protein,Urine Negative Normal Negative [facility] Comment on above: Order Comment: Name Collection Type:: Clean-Voided Midstream Performed By: #### U A #### [place] [address] [place] Specificy [place],Urine 1.021 Normal 1.00 1-1.03 0 [facility] Comment on above: Order Comment: Name Collection Type:: Clean-Voided Midstream Performed By: #### U A #### [place] [address] [place] Urobilinogen,Urine Normal Normal Normal [facility] Comment on above: Order Comment: Name Collection Type:: Clean-Voided Midstream Performed By: #### U A #### [facility] [address] Urine clarity by refractomet ry automatedOrdered By: Niki Weeks on 07-20-2023 Clarity Refractometry automated (U) Clear Clear [facility] Urine glucose measurement by automated test strip (mass/volume)Ordered By: Niki Weeks on 07-20-2023 Glucose Auto test strip (U) [Mass/Vol] Normal mg/dL Normal [facility] Urine hemoglobin detection b y automated test stripOrdered By: Niki Weeks on 07-20-2023 Hemoglobin Auto test strip Ql (U) Negative Negative [facility] Urine leukocyte esterase det ection by automated test stripOrdered By: Niki Weeks on 07-20-2023 Leukocyte esterase Auto test strip Ql (U) Negative Negative [facility] Urine pH measurement by auto mated test stripOrdered By: Niki Weeks on 07-20-2023 pH (U) 5.5 [pH] Normal 5.0-9.0 [facility] Comment on above: Order Comment: Name Collection Type:: Clean-Voided Midstream Performed By: #### U A #### [facility] [address] [place] [address] Urobilinogen Auto test strip (U) [Mass/Vol]Ordered By: Niki Weeks on 07-20-2023 Urobilinogen (U) [Mass/Vol] Normal mg/dL Normal [facility] No Panel Informationon 06-16 BLANK _ [facility] Implant Date 05/22/2015 [facility] Model 5076 [employer] Novus [facility] PACEMAKER REMOTE CHECKon AV Delay Adaptive Paced Minimum (ms) 180 ms [facility] AV Delay Adaptive Sensed Minimum (ms) 150 ms [facility] AV Delay Adaptive Status DISABLED [facility] Battery Voltage (volts) 2.94 V [facility] Godfrey RA Pacing Amplitude (volts) 1.5 V [facility] Godfrey RA Pacing Polarity BI [facility] Godfrey RA Pacing Pulse Width (ms) 0.4 ms [facility] Godfrey RA Sensing Amplitude (mvolts) 0.3 mV [facility] Godfrey RA Sensing Blanking Period (ms) 150 ms [facility] Godfrey RA Sensing Polarity BI [facility] Godfrey RA Sensing Refractory Period (ms) Auto [facility] Godfrey RV Pacing Amplitude (volts) 2 V [facility] Godfrey RV Pacing Polarity BI [facility] Godfrey RV Pacing Pulse Width (ms) 0.4 ms [facility] Godfrey RV Sensing Amplitude (mvolts) 0.9 mV [facility] Godfrey RV Sensing Blanking Period (ms) 200 ms [facility] Godfrey RV Sensing Polarity BI [facility] Hysteresis Rate (bpm) DISABLED [facility] Lead1 Mfg MDT [facility] Lead2 Mfg MDT [facility] Location RV [facility] Location RA [facility] Lower Rate (bpm) 60 {beats}/min [facility] Max Sensor Rate (bmp) 130 {beats}/min [facility] Model [id number] COBOS [facility] PM-Device Mfg MDGalo [facility] PM-Percent Pacing (A) 99.76 % [facility] PM-Percent Pacing (V) 0.11 % [facility] PM-PMT Intervention ENABLED [facility] PM-PVC Intervention ENABLED [facility] PM-Rate Modulation Acceleration Reaction 30 s [facility] PM-Rate Modulation ADL Rate (bpm) 100 {beats}/min [facility] PM-Rate Modulation Deceleration Exercise [facility] PM-Rate Modulation Threshold MediumLow [facility] RA Bipolar Impedance ohms 437 ohm [facility] RA Unipolar Impedance ohms 399 ohm [facility] RV Bipolar Impedance ohms 532 ohm [facility] RV Unipolar Impedance 494 ohm [facility] Serial Number [id number] [facility] Serial Number [id number] [facility] Serial Number [id number] [facility] Thresh RA Capture Amplitude (volts) 0.5 V [facility] Thresh RA Capture Duration (ms) 0.4 ms [facility] Thresh RA Sensing Amplitude (mvolts) 2.25 mV [facility] Thresh RV Capture Amplitude (volts) 0.75 V [facility] Thresh RV Capture Duration (ms) 0.4 ms [facility] Thresh RV Sensing Amplitude (mvolts) 12.875 mV [facility] Tracking Rate (bpm) 130 {beats}/min [facility] Keegan 06-07-2023 [place] Telephone (CARDAV) -- CASSI RODRIGEZ ([id number]) 1950 F Date Time Provider Department 06/07/23 [...] Date Reviewed: 09/10/2022 Reviewed by: Lauren Otero APRN.[employer] 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 No Panel Informationon 02-24 BLANK _ [facility] Implant Date 05/22/2015 [facility] Model 5076 [employer] Novus [facility] PACEMAKER REMOTE CHECKon AV Delay Adaptive Paced Minimum (ms) 180 ms [facility] AV Delay Adaptive Sensed Minimum (ms) 150 ms [facility] AV Delay Adaptive Status DISABLED [facility] Battery Voltage (volts) 2.95 V C [facility] Godfrey RA Pacing Amplitude (volts) 1.5 V [facility] Godfrey RA Pacing Polarity BI [facility] Godfrey RA Pacing Pulse Width (ms) 0.4 ms [facility] Godfrey RA Sensing Amplitude (mvolts) 0.3 mV [facility] Godfrey RA Sensing Blanking Period (ms) 150 ms [facility] Godfrey RA Sensing Polarity BI [facility] Godfrey RA Sensing Refractory Period (ms) Auto [facility] Godfrey RV Pacing Amplitude (volts) 2 V [facility] Godfrey RV Pacing Polarity BI [facility] Godfrey RV Pacing Pulse Width (ms) 0.4 ms [facility] Godfrey RV Sensing Amplitude (mvolts) 0.9 mV [facility] Godfrey RV Sensing Blanking Period (ms) 200 ms [facility] Godfrey RV Sensing Polarity BI [facility] Hysteresis Rate (bpm) DISABLED [facility] Lead1 Mfg MDT [facility] Lead2 Mfg MDT [facility] Location RV [facility] Location RA [facility] Lower Rate (bpm) 60 {beats}/min [facility] Max Sensor Rate (bmp) 130 {beats}/min [facility] Model [id number] COBOS [facility] PM-Device Mfg ARIANNA [facility] PM-Percent Pacing (A) 99.67 % [facility] PM-Percent Pacing (V) 0.2 % [facility] PM-PMT Intervention ENABLED [facility] PM-PVC Intervention ENABLED [facility] PM-Rate Modulation Acceleration Reaction 30 s [facility] PM-Rate Modulation ADL Rate (bpm) 100 {beats}/min [facility] PM-Rate Modulation Deceleration Exercise [facility] PM-Rate Modulation Threshold MediumLow [facility] RA Bipolar Impedance ohms 418 ohm [facility] RA Unipolar Impedance ohms 380 ohm [facility] RV Bipolar Impedance ohms 532 ohm [facility] RV Unipolar Impedance 494 ohm [facility] Serial Number [id number] [facility] Serial Number [id number] [facility] Serial Number [id number] [facility] Thresh RA Capture Amplitude (volts) 0.5 V [facility] Thresh RA Capture Duration (ms) 0.4 ms [facility] Thresh RA Sensing Amplitude (mvolts) 2.25 mV [facility] Thresh RV Capture Amplitude (volts) 0.875 V [facility] Thresh RV Capture Duration (ms) 0.4 ms [facility] Thresh RV Sensing Amplitude (mvolts) 12.875 mV [facility] Tracking Rate (bpm) 130 {beats}/min [facility] No Panel Informationon 11-26 BLANK _ [facility] Implant Date 05/22/2015 [facility] Model 5076 [employer] Novus [facility] PACEMAKER REMOTE CHECKon AV Delay Adaptive Paced Minimum (ms) 180 ms [facility] AV Delay Adaptive Sensed Minimum (ms) 150 ms [facility] AV Delay Adaptive Status DISABLED [facility] Battery Voltage (volts) 2.96 V [facility] Godfrey RA Pacing Amplitude (volts) 1.5 V [facility] Godfrey RA Pacing Polarity BI [facility] Godfrey RA Pacing Pulse Width (ms) 0.4 ms [facility] Godfrey RA Sensing Amplitude (mvolts) 0.3 mV [facility] Godfrey RA Sensing Blanking Period (ms) 150 ms [facility] Godfrey RA Sensing Polarity BI [facility] Godfrey RA Sensing Refractory Period (ms) Auto [facility] Godfrey RV Pacing Amplitude (volts) 2 V [facility] Godfrey RV Pacing Polarity BI [facility] Godfrey RV Pacing Pulse Width (ms) 0.4 ms [facility] Godfrey RV Sensing Amplitude (mvolts) 0.9 mV [facility] Godfrey RV Sensing Blanking Period (ms) 200 ms [facility] Godfrey RV Sensing Polarity BI [facility] Hysteresis Rate (bpm) DISABLED [facility] Lead1 Mfg MDT [facility] Lead2 Mfg ARIANNA [facility] Location RV [facility] Location RA [facility] Lower Rate (bpm) 60 {beats}/min [facility] Max Sensor Rate (bmp) 130 {beats}/min [facility] Model [id number] COBOS [facility] PM-Device Jorge KELLER [facility] PM-Percent Pacing (A) 99.43 % [facility] PM-Percent Pacing (V) 0.17 % [facility] PM-PMT Intervention ENABLED [facility] PM-PVC Intervention ENABLED [facility] PM-Rate Modulation Acceleration Reaction 30 s [facility] PM-Rate Modulation ADL Rate (bpm) 100 {beats}/min [facility] PM-Rate Modulation Deceleration Exercise [facility] PM-Rate Modulation Threshold MediumLow [facility] RA Bipolar Impedance ohms 437 ohm [facility] RA Unipolar Impedance ohms 399 ohm [facility] RV Bipolar Impedance ohms 532 ohm [facility] RV Unipolar Impedance 494 ohm [facility] Serial Number [id number] [facility] Serial Number [id number] [facility] Serial Number [id number] [facility] Thresh RA Capture Amplitude (volts) 0.5 V [facility] Thresh RA Capture Duration (ms) 0.4 ms [facility] Thresh RA Sensing Amplitude (mvolts) 1.875 mV [facility] Thresh RV Capture Amplitude (volts) 0.75 V [facility] Thresh RV Capture Duration (ms) 0.4 ms [facility] Thresh RV Sensing Amplitude (mvolts) 11.75 mV [facility] Tracking Rate (bpm) 130 {beats}/min [facility] No Panel Informationon 08-26 BLANK _ [facility] Implant Date 05/22/2015 [facility] Model 5076 [employer] Novus [facility] PACEMAKER REMOTE CHECKon AV Delay Adaptive Paced Minimum (ms) 180 ms [facility] AV Delay Adaptive Sensed Minimum (ms) 150 ms [facility] AV Delay Adaptive Status DISABLED [facility] Battery Voltage (volts) 2.96 V [facility] Godfrey RA Pacing Amplitude (volts) 1.5 V [facility] Godfrey RA Pacing Polarity BI [facility] Godfrey RA Pacing Pulse Width (ms) 0.4 ms [facility] Godfrey RA Sensing Amplitude (mvolts) 0.3 mV [facility] Godfrey RA Sensing Blanking Period (ms) 150 ms [facility] Godfrey RA Sensing Polarity BI [facility] Godfrey RA Sensing Refractory Period (ms) Auto [facility] Godfrey RV Pacing Amplitude (volts) 2 V [facility] Godfrey RV Pacing Polarity BI [facility] Godfrey RV Pacing Pulse Width (ms) 0.4 ms [facility] Godfrey RV Sensing Amplitude (mvolts) 0.9 mV [facility] Godfrey RV Sensing Blanking Period (ms) 200 ms [facility] Godfrey RV Sensing Polarity BI [facility] Hysteresis Rate (bpm) DISABLED [facility] Lead1 Mfg MDT [facility] Lead2 Mfg MDT [facility] Location RV [facility] Location RA [facility] Lower Rate (bpm) 60 {beats}/min [facility] Max Sensor Rate (bmp) 130 {beats}/min [facility] Model [id number] COBOS [facility] PM-Device Jorge KELLER [facility] PM-Percent Pacing (A) 99.6 % [facility] PM-Percent Pacing (V) 0.24 % [facility] PM-PMT Intervention ENABLED [facility] PM-PVC Intervention ENABLED [facility] PM-Rate Modulation Acceleration Reaction 30 s [facility] PM-Rate Modulation ADL Rate (bpm) 100 {beats}/min [facility] PM-Rate Modulation Deceleration Exercise [facility] PM-Rate Modulation Threshold MediumLow [facility] RA Bipolar Impedance ohms 437 ohm [facility] RA Unipolar Impedance ohms 399 ohm [facility] RV Bipolar Impedance ohms 532 ohm [facility] RV Unipolar Impedance 494 ohm [facility] Serial Number [id number] [facility] Serial Number [id number] [facility] Serial Number [id number] [facility] Thresh RA Capture Amplitude (volts) 0.5 V [facility] Thresh RA Capture Duration (ms) 0.4 ms [facility] Thresh RA Sensing Amplitude (mvolts) 2.5 mV [facility] Thresh RV Capture Amplitude (volts) 0.75 V [facility] Thresh RV Capture Duration (ms) 0.4 ms [facility] Thresh RV Sensing Amplitude (mvolts) 12.125 mV [facility] Tracking Rate (bpm) 130 {beats}/min [facility] US KIDNEYS BLADDERon -[id number] [id number] US KIDNEYS BLADDER EXAMINATION: [facility] BLADDER HISTORY: Chronic kidney disease due to [...] EBEN BABCOCK Date: 2022-08-10 19:30 Normal [facility] UA RANDOM W/MICROSCOPICon BACTERIA NONE SEEN Normal NONE SEEN [facility] Comment on above: Performed By: #### U AMIC #### [facility] [address] [place] [address] Dr. Leah Felipe Bilirubin Ql (U) Negative Normal NEGATIVE [facility] Comment on above: Performed By: #### U AMIC #### [facility] [address] [place] [address] Dr. Leah Felipe CAST NONE SEEN Normal NONE SEEN [facility] Comment on above: Performed By: #### U AMIC #### [facility] [address] [place] [address] Dr. Leah Felipe Clarity (U) CLEAR Normal CLEAR [facility] Comment on above: Performed By: #### U AMIC #### [facility] [address] [address] [address] Leah Felipe Color (U) LT. YELLOW Normal YELLOW [facility] Comment on above: Performed By: #### U AMIC #### [facility] [address] [place] [address] Dr. Leah Felipe Crystals LM Nom (Urine sed) NONE SEEN Normal NONE SEEN [facility] Comment on above: Performed By: #### U AMIC #### [facility] Laboratory [address] [address] [address] Leah Felipe Epithelial cells LM Ql (Urine sed) FEW Abnormal NONE SEEN /RARE [facility] Comment on above: Performed By: #### U AMIC #### [facility] [address] [place] [address] Dr. Leah Felipe Glucose Ql (U) Negative Normal NEGATIVE [facility] Comment on above: Performed By: #### U AMIC #### [facility] [address] [place] [address] Dr. Leah Felipe Hemoglobin Ql (U) Negative Normal NEGATIVE [facility] Comment on above: Performed By: #### U AMIC #### [facility] [address] [place] [address] Dr. Leah Felipe Ketones Ql (U) Negative Normal NEGATIVE [facility] Comment on above: Performed By: #### U AMIC #### [facility] [address] [place] [address] Dr. Leah Felipe LEUKOCYTES Negative Normal NEGATIVE [facility] Comment on above: Performed By: #### U AMIC #### [facility] [address] [place] [address] Dr. Leah Felipe MUCOUS NONE SEEN Normal NONE SEEN [facility] Comment on above: Performed By: #### U AMIC #### [facility] [address] [place] [address] Dr. Leah Felipe Nitrite Ql (U) Negative Normal NEGATIVE [facility] Comment on above: Performed By: #### U AMIC #### [facility] [address] [place] [address] Dr. Leah Felipe pH (U) 6.0 [pH] Normal 5-9 [facility] Comment on above: Performed By: #### U AMIC #### [facility] [address] [place] [address] Dr. Leah Felipe RBC NONE SEEN Abnormal 0-2 [facility] Comment on above: Performed By: #### U AMIC #### [facility] [address] [place] [address] Dr. Leah Felipe SPEC GRAVITY 1.025 Normal 1.005-<=1. 025 [facility] Comment on above: Performed By: #### U AMIC #### [facility] [address] [place] [address] Dr. Leah Felipe UA PROTEIN Negative Normal NEGATIVE/ TRACE [facility] Comment on above: Performed By: #### U AMIC #### [facility] [address] [place] [address] Dr. Leah Felipe Urobilinogen Qn (U) 0.2 {Lin'U}/dL Normal 0.2 - 1. 0 [facility] Comment on above: Performed By: #### U AMIC #### [facility] [address] [place] [address] Dr. Leah Felipe WBC 0-2 Abnormal NONE SEEN [facility] Comment on above: Performed By: #### U AMIC #### [facility] [address] [place] [address] Dr. Leah Felipe URINE T PROTEIN CREAT RATIOo n 08-03-2022 Protein (U) [Mass/Vol] 30.2 mg/dL Critically high <=12.0 [facility] Comment on above: Performed By: #### U RTPCR #### [facility] [address] [place] [address] Dr. Leah Felipe UR PROT CREAT RAT 0.19 Normal [facility] Comment on above: Performed By: #### U RTPCR #### [facility] [address] [place] [address] Dr. Leah Felipe URINE CREAT 159.67 mg/dL Normal 20.00-300. 00 [facility] Comment on above: Performed By: #### U RTPCR #### [facility] [address] [place] [address] Dr. Leah Felipe CBC AUTO DIFFon 07-31-2022 BASO # 0.0 103/ul Normal 0.0-0.1 [facility] Comment on above: Performed By: #### C BC #### [facility] [address] [place] [address] Dr. Leah Felipe Basophils/100 WBC (Bld) 0.6 % Normal 0.2-2.0 [facility] Comment on above: Performed By: #### C BC #### [facility] [address] [place] [address] Dr. Leah Felipe EO # 0.3 103/ul Normal 0.0-0.7 [facility] Comment on above: Performed By: #### C BC #### [facility] [address] [place] [address] Dr. Leah Felipe Eosinophils/100 WBC (Bld) 5.5 % Normal 0.9-7.0 [facility] Comment on above: Performed By: #### C BC #### [facility] [address] [place] [address] Dr. Leah Felipe Erythrocyte distribution width (RBC) [Ratio] 12.5 % Normal 11.0-15.0 [facility] Comment on above: Performed By: #### C BC #### [facility] [address] [place] [address] Dr. Leah Felipe Hematocrit (Bld) [Volume fraction] 39.2 % Normal 36.0-48.0 [facility] Comment on above: Performed By: #### C BC #### [facility] [address] [place] [address] Dr. Leah Felipe Hemoglobin (Bld) [Mass/Vol] 12.5 g/dL Normal 12.0-16.0 [facility] Comment on above: Performed By: #### C BC #### [facility] [address] [place] [address] Dr. Leah Felipe IG # 0.01 10e3/ul Normal 0.00-0.03 [facility] Comment on above: Performed By: #### C BC #### [facility] [address] [place] [address] Dr. Leah Felipe IG % 0.2 % Normal 0.0-0.5 [facility] Comment on above: Performed By: #### C BC #### [facility] [address] [place] [address] Dr. Leah Felipe LYMPH # 0.8 103/ul Critically low 1.2-3.8 [facility] Comment on above: Performed By: #### C BC #### [facility] [address] [place] [address] Dr. Leah Felipe Lymphocytes/100 WBC (Bld) 16.0 % Critically low 20.5-60.0 [facility] Comment on above: Performed By: #### C BC #### [facility] [address] [place] [address] Dr. Leah Felipe MANUAL DIFF REQ NO Normal [facility] Comment on above: Performed By: #### C BC #### [facility] [address] [place] [address] Dr. Leah Felipe MCH (RBC) [Entitic mass] 30.9 pg Normal 26.7-34.0 [facility] Comment on above: Performed By: #### C BC #### [facility] [address] [place] [address] Dr. Leah Felipe MCHC (RBC) [Mass/Vol] 31.9 g/dL Normal 29.9-35.2 [facility] Comment on above: Performed By: #### C BC #### [facility] [address] [place] [address] Dr. Leah Felipe MCV (RBC) [Entitic vol] 97.0 fL Normal 81.0-99.0 [facility] Comment on above: Performed By: #### C BC #### [facility] [address] [place] [address] Dr. Leah Felipe MONO # 0.4 103/ul Normal 0.3-0.8 [facility] Comment on above: Performed By: #### C BC #### [facility] [address] [place] [address] Dr. Leah Felipe Monocytes/100 WBC (Bld) 8.7 % Normal 1.7-12.0 [facility] Comment on above: Performed By: #### C BC #### [facility] [address] [place] [address] Dr. Leah Felipe NEUT # 3.4 103/ul Normal 1.4-6.5 [facility] Comment on above: Performed By: #### C BC #### [facility] [address] [place] [address] Dr. Leah Felipe Neutrophils/100 WBC (Bld) 69.0 % Normal 43.0-75.0 [facility] Comment on above: Performed By: #### C BC #### [facility] [address] [place] [address] Dr. Leah Felipe Platelet mean volume (Bld) [Entitic vol] 9.1 fL Critically low 9.5-13.5 [facility] Comment on above: Performed By: #### C BC #### [facility] [address] [place] [address] Dr. Leah Felipe PLT 196 103/ul Normal 150-450 [facility] Comment on above: Performed By: #### C BC #### [facility] [address] [place] [address] Dr. Leah Felipe RBC 4.04 106/ul Critically low 4.20-5.40 [facility] Comment on above: Performed By: #### C BC #### [facility] [address] [place] [address] Dr. eLah Felipe WBC 5.0 103/ul Normal 4.0-11.0 [facility] Comment on above: Performed By: #### C BC #### [facility] [address] [place] [address] Dr. Leah Felipe PROF CHEM 8 (BAS METB)on Anion gap [Moles/Vol] 9.8 mmol/L Normal [facility] Comment on above: Performed By: #### B MP, TSH #### [facility] [address] [place] [address] Dr. Leah Felipe Calcium [Mass/Vol] 8.2 mg/dL Critically low 8.5-10.1 [facility] Comment on above: Performed By: #### B MP, TSH #### [facility] [address] [place] [address] Dr. Leah Felipe Chloride [Moles/Vol] 107 mmol/L Normal 98-107 [facility] Comment on above: Performed By: #### B MP, TSH #### [facility] [address] [place] [address] Dr. Leah Felipe CO2 [Moles/Vol] 26.4 mmol/L Normal 21.0-32.0 [facility] Comment on above: Performed By: #### B MP, TSH #### [facility] [address] [place] [address] Dr. Leah Felipe Creatinine [Mass/Vol] 1.53 mg/dL Critically high 0.55-1.02 [facility] Comment on above: Performed By: #### B VENANCIO, TSH #### [facility] [address] [place] [address] Dr. Leah Felipe EGFR-AF MONGOLIAN 40 mL/min/1.73m2 Critically low >=60 [facility] Comment on above: Performed By: #### B VENANCIO, TSH #### [facility] [address] [address] [address] Leah Felipe EGFR-NON AF MONGOLIAN 33 mL/min/1.73m2 Critically low >=60 [facility] Comment on above: Performed By: #### B VENANCIO, TSH #### [facility] [address] [place] [address] Dr. Leah Felipe Glucose [Mass/Vol] 108 mg/dL Critically high 74-[address] [facility] Comment on above: Performed By: #### B VENANCIO, TSH #### [facility] [address] [place] [address] Dr. Leah Felipe Potassium [Moles/Vol] 4.2 mmol/L Normal 3.5-5.1 [facility] Comment on above: Performed By: #### B VENANCIO, TSH #### [facility] [address] [place] [address] Dr. Leah Felipe Sodium [Moles/Vol] 139 mmol/L Normal 136-145 [facility] Comment on above: Performed By: #### B VENANCIO, TSH #### [facility] [address] [place] [address] Dr. Leah Felipe Urea nitrogen [Mass/Vol] 26.0 mg/dL Critically high 7.0-18.0 [facility] Comment on above: Performed By: #### B VENANCIO, TSH #### [facility] [address] [place] [address] Dr. Leah Felipe Urea nitrogen/Creatinine [Mass ratio] 17.0 mg/mg Normal [facility] Comment on above: Performed By: #### B VENANCIO, TSH #### [facility] [address] [place] [address] Dr. Leah Felipe TSHon 07-31-2022 TSH 1.650 uIU/mL Normal 0.358-3.74 0 [facility] Comment on above: Performed By: #### B MP, TSH #### [facility] [address] [address] [address] Leah Felipe VITAMIN B12on 07-31-2022 Cobalamin (Vitamin B12) [Mass/Vol] 378.0 pg/mL Normal 193.0-986. 0 [facility] Comment on above: Performed By: #### V ITB12 #### [facility] [address] [address] [address] Leah Felipe MG MAMM SCREEN 3D FAVIOLA CADon 07-29-2022 MG MAMM SCREEN 3D FAVIOLA CAD Patient: CASSI RODRIGEZ Exam Date: 07/29/2022 : 1950 Gender:F Ordering : DR BRODERICK HOWARD D.O. Admission #: [id number] Family : Order #: [id number] CLICK HERE TO VIEW EXAM RADIOLOGY REPORT [...] pancreatic cancer at age 64. LOCATION: [facility] BREAST COMPOSITION: Heterogeneously dense,which may obscure [...] MD on 07/29/2022 at 11:19 Normal [facility] CBC panel Auto (Bld)on 07-23 Erythrocyte distribution width (RBC) [Ratio] 12.5 % Normal 11.5-15.0 [facility] Comment on above: Order Comment: Speci men Type: BLOOD SPECIMEN Ordering Facility: [facility] Address: [address] [place] [address] Performed By: #### 5 8410-2 #### [facility] CLIA [id number] [facility] Hematocrit (Bld) [Volume fraction] 39.3 % Normal 36.0-46.0 [facility] Comment on above: Order Comment: Speci men Type: BLOOD SPECIMEN Ordering Facility: [facility] Address: [address] [place] [address] Performed By: #### 5 8410-2 #### [facility] CLIA [id number] [place] Hemoglobin (Bld) [Mass/Vol] 12.5 g/dL Normal 11.5-15.5 [facility] Comment on above: Order Comment: Speci men Type: BLOOD SPECIMEN Ordering Facility: [facility] Address: [address] [place] [address] Performed By: #### 5 8410-2 #### [facility] [place] [id number] [address] [place] [address] [place] MCH (RBC) [Entitic mass] 31.3 pg Normal 26.0-34.0 [facility] Comment on above: Order Comment: Speci men Type: BLOOD SPECIMEN Ordering Facility: [facility] Address: [address] [place] [address] Performed By: #### 5 8410-2 #### [facility] CLIA [id number] [id number] [place] MCHC (RBC) [Mass/Vol] 31.8 g/dL Normal 30.5-36.0 [facility] Comment on above: Order Comment: Speci men Type: BLOOD SPECIMEN Ordering Facility: [facility] Address: [address] [place], [place] [address] Performed By: #### 5 8410-2 #### [facility] [place] [id number] [facility] MCV (RBC) [Entitic vol] 98.5 fL Normal 80.0-100.0 [facility] Comment on above: Order Comment: Speci men Type: BLOOD SPECIMEN Ordering Facility: [facility] Address: [address] [place], [place] [address] Performed By: #### 5 8410-2 #### [facility] [place] [id number] [place] [address] [place] Nucleated RBC (Bld) [#/Vol] 10*3/uL Normal <0.01 [facility] Comment on above: Order Comment: Speci men Type: BLOOD SPECIMEN Ordering Facility: [facility] Address: [address] [place], [place] [address] Performed By: #### 5 8410-2 #### [facility] [place] [id number] [place] [address] [place] Platelet mean volume (Bld) [Entitic vol] 9.5 fL Normal 9.0-12.7 [facility] Comment on above: Order Comment: Speci men Type: BLOOD SPECIMEN Ordering Facility: [facility] Address: [address] [place], [place] [address] Performed By: #### 5 8410-2 #### [facility] [place] [id number] [place] Platelets (Bld) [#/Vol] 214 10*3/uL Normal 150-400 [facility] Comment on above: Order Comment: Speci men Type: BLOOD SPECIMEN Ordering Facility: [facility] Address: [address] [place], [place] [address] Performed By: #### 5 8410-2 #### [facility] [place] [id number] [address] [place] [address] [place] RBC (Bld) [#/Vol] 3.99 10*6/uL Normal 3.90-5.20 [facility] Comment on above: Order Comment: Speci men Type: BLOOD SPECIMEN Ordering Facility: [facility] Address: [address] [place] [address] Performed By: #### 5 8410-2 #### [facility] CLIA [id number] WBC (Bld) [#/Vol] 5.85 10*3/uL Normal 3.70-11.00 [facility] Comment on above: Order Comment: Speci men Type: BLOOD SPECIMEN Ordering Facility: [facility] Address: [address] [place] [address] Performed By: #### 5 8410-2 #### [facility] CLIA [id number] Erythrocyte distribution width (RBC) [Ratio] 12.5 % 11.5 - 15.0 % [facility] Hematocrit (Bld) [Volume fraction] 39.3 % 36.0 - 46.0 % [facility] Hemoglobin (Bld) [Mass/Vol] 12.5 g/dL 11.5 - 15.5 g/dL [facility] MCH (RBC) [Entitic mass] 31.3 pg 26.0 - 34.0 pg [facility] MCHC (RBC) [Mass/Vol] 31.8 g/dL 30.5 - 36.0 g/dL [facility] MCV (RBC) [Entitic vol] 98.5 fL 80.0 - 100.0 fL [facility] Nucleated RBC (Bld) [#/Vol] <0.01 k/uL [facility] Platelet mean volume (Bld) [Entitic vol] 9.5 fL 9.0 - 12.7 fL [facility] Platelets (Bld) [#/Vol] 214 10*3/uL 150 - 400 k/uL [facility] RBC (Bld) [#/Vol] 3.99 10*6/uL 3.90 - 5.20 m/uL [facility] WBC (Bld) [#/Vol] 5.85 10*3/uL 3.70 - 11.00 k/uL [facility] TSH BLDon 07-23-2022 TSH Qn 1.890 m[IU]/L 0.270 - 4.200 mIU/L [facility] TSH SerPl-aCncon 07-23-2022 TSH Qn 1.890 m[IU]/L Normal 0.270-4.20 0 [facility] Comment on above: Order Comment: Speci men Type: BLOOD SPECIMEN Ordering Facility: [facility] Address: [address] [place] [address] [place] [address] Performed By: #### 3 016-3 #### [facility] CLIA [id number] [place] [address] [facility] Vital Signs Date Time Vital Sign Value Performing Clinician Facility 06-29-2024 13:05-0400 Body height 157.5 cm Alejandro Villar MD, PhD Work Phone: [facility] 06-29-2024 13:05-0400 Body mass index (BMI) [Ratio] 34.44 kg/m2 Alejandro Villar MD, PhD Work Phone: [facility] 06-29-2024 13:05-0400 Body weight 85.4 kg Alejandro Villar MD, PhD Work Phone: [facility] 06-29-2024 13:05-0400 Diastolic blood pressure 72 mm[Hg] Alejandro Villar MD, PhD Work Phone: [facility] 06-29-2024 13:05-0400 Heart rate 85 /min Alejandro Villar MD, PhD Work Phone: [facility] 06-29-2024 13:05-0400 Systolic blood pressure 133 mm[Hg] Alejandro Villar MD, PhD Work Phone: [facility] 06-27-2024 14:01-0400 Body height 157.48 cm DO Broderick Ball Work Phone: [facility] 06-27-2024 14:01-0400 Body mass index (BMI) [Ratio] 34.2 kg/m2 DO Broderick Ball Work Phone: [facility] 06-27-2024 14:010400 Body weight 84.82 kg DO Broderick Ball Work Phone: [facility] 06-27-2024 14:0400 Diastolic blood pressure 74 mm[Hg] DO Broderick Ball Work Phone: [facility] 06-27-2024 14:01-0400 Heart rate 68 /min DO Broderick Ball Work Phone: [facility] 06-27-2024 14:0400 Respiratory rate 12 /min DO Broderick Ball Work Phone: [facility] 06-27-2024 14:010400 Systolic blood pressure 123 mm[Hg] DO Broderick Ball Work Phone: [facility] 06-08-2024 14:-040 Body height 157.48 cm DO Broderick Ball Work Phone: [facility] 06-08-2024 14:26-0400 Body mass index (BMI) [Ratio] 34 kg/m2 DO Broderick Ball Work Phone: [facility] 06-08-2024 14:26-040 Body temperature 97.6 [degF] DO Broderick Ball Work Phone: [facility] 06-08-2024 14:26-0400 Body weight 84.36 kg DO Broderick Ball Work Phone: [facility] 06-08-2024 14:26-0400 Diastolic blood pressure 70 mm[Hg] DO Broderick Ball Work Phone: [facility] 06-08-2024 14:26-0400 Heart rate 73 /min DO Broderick Ball Work Phone: [facility] 06-08-2024 14:26-0400 Respiratory rate 16 /min DO Broderick Ball Work Phone: [facility] 06-08-2024 14:26-0400 SaO2% (BldA) [Mass fraction] 99 % DO Broderick Ball Work Phone: [facility] 06-08-2024 14:26-0400 Systolic blood pressure 140 mm[Hg] DO Broderick Ball Work Phone: [facility] 05-30-2024 07:27-0400 Body height 157.48 cm DO Broderick Ball Work Phone: [facility] 05-30-2024 07:27-0400 Body weight 86.18 kg DO Broderick Ball Work Phone: [facility] 05-23-2024 11:23-0400 Body height 157.5 cm Randa Reilly MD Work Phone: [facility] 05-23-2024 11:23-0400 Body mass index (BMI) [Ratio] 34.55 kg/m2 Randa Reilly MD Work Phone: [facility] 05-23-2024 11:23-0400 Body weight 85.68 kg Randa Reilly MD Work Phone: [facility] 05-23-2024 11:23-0400 Diastolic blood pressure 72 mm[Hg] Randa Reilly MD Work Phone: [facility] 05-23-2024 11:23-0400 Heart rate 85 /min Randa Reilly MD Work Phone: [facility] 05-23-2024 11:23-0400 Systolic blood pressure 133 mm[Hg] Randa Reilly MD Work Phone: [facility] 04-21-2024 10:00-0400 Body height 157.48 cm DO Broderick Ball Work Phone: [facility] 04-21-2024 10:00-0400 Body mass index (BMI) [Ratio] 34.5 kg/m2 DO Broderick Ball Work Phone: [facility] 04-21-2024 10:00-0400 Body weight 85.72 kg DO Broderick Ball Work Phone: [facility] 03-29-2024 13:34-0400 Body height 157.48 cm DO Broderick Ball Work Phone: [facility] 03-29-2024 13:34-0400 Body mass index (BMI) [Ratio] 33.3 kg/m2 DO Broderick Ball Work Phone: [facility] 03-29-2024 13:34-0400 Body weight 82.78 kg DO Broderick Ball Work Phone: [facility] 03-29-2024 13:34-0400 Diastolic blood pressure 77 mm[Hg] DO Broderick Ball Work Phone: [facility] 03-29-2024 13:34-0400 Heart rate 73 /min DO Broderick Ball Work Phone: [facility] 03-29-2024 13:34-0400 Respiratory rate 12 /min DO Broderick Ball Work Phone: [facility] 03-29-2024 13:34-0400 Systolic blood pressure 124 mm[Hg] DO Broderick Ball Work Phone: [facility] 03-27-2024 11:25-0400 Body height 157.48 cm DO Broderick Ball Work Phone: [facility] 03-27-2024 11:25-0400 Body weight 84.36 kg DO Broderick Ball Work Phone: [facility] 03-07-2024 08:53-0400 Body height 157.5 cm Randa Reilly MD Work Phone: [facility] 03-07-2024 08:53-0400 Body mass index (BMI) [Ratio] 34.06 kg/m2 Randa Reilly MD Work Phone: [facility] 03-07-2024 08:53-0400 Body weight 84.46 kg Randa Reilly MD Work Phone: [facility] 03-07-2024 08:53-0400 Diastolic blood pressure 72 mm[Hg] Randa Reilly MD Work Phone: [facility] 03-07-2024 08:53-0400 Heart rate 85 /min Randa Reilly MD Work Phone: [facility] 03-07-2024 08:53-0400 Systolic blood pressure 133 mm[Hg] Randa Reilly MD Work Phone: [facility] 02-09-2024 14:58-0400 Body height 161.29 cm [facility] [facility] 02-09-2024 14:58-0400 Body mass index (BMI) [Ratio] 33.5 kg/m2 [facility] 02-09-2024 14:58-0400 Body weight 87.08 kg [facility] 02-09-2024 14:58-0400 Diastolic blood pressure 71 mm[Hg] [facility] 02-09-2024 14:58-0400 Heart rate 78 /min [facility] 02-09-2024 14:58-0400 Respiratory rate 12 /min [facility] 02-09-2024 14:58-0400 Systolic blood pressure 114 mm[Hg] [facility] 12-23-2023 09:02-0500 Body height 157.5 cm Alejandro Villar MD, PhD Work Phone: [facility] 12-23-2023 09:02-0500 Body temperature 97.59 [degF] Alejandro Villar MD, PhD Work Phone: [facility] 12-23-2023 09:02-0500 Body weight 86.64 kg Alejandro Villar MD, PhD Work Phone: [facility] 12-23-2023 09:02-0500 Diastolic blood pressure 72 mm[Hg] Alejandro Villar MD, PhD Work Phone: [facility] 12-23-2023 09:02-0500 Heart rate 85 /min Alejandro Villar MD, PhD Work Phone: [facility] 12-23-2023 09:02-0500 SaO2% (BldA) [Mass fraction] 100 % Alejandro Villar MD, PhD Work Phone: [facility] 12-23-2023 09:02-0500 Systolic blood pressure 133 mm[Hg] Alejandro Villar MD, PhD Work Phone: [facility] 09-08-2023 14:50-0400 Body height 157.5 cm Mirian Bell RERECORDING MIXER.NUISANCE WILDLIFE CONTROL OPERATOR Work Phone: [facility] 09-08-2023 14:50-0400 Body weight 86.5 kg Mirian Bell RERECORDING MIXER.NUISANCE WILDLIFE CONTROL OPERATOR Work Phone: [facility] 09-08-2023 14:50-0400 Diastolic blood pressure 64 mm[Hg] Mirian Bell RERECORDING MIXER.NUISANCE WILDLIFE CONTROL OPERATOR Work Phone: [facility] 09-08-2023 14:50-0400 Heart rate 62 /min Mirian Bell RERECORDING MIXER.NUISANCE WILDLIFE CONTROL OPERATOR Work Phone: [facility] 09-08-2023 14:50-0400 Systolic blood pressure 130 mm[Hg] Mirian Bell RERECORDING MIXER.NUISANCE WILDLIFE CONTROL OPERATOR Work Phone: [facility] 08-25-2023 10:20-0400 Body height 161.29 cm Niki Blades Other [employer] Other 08-25-2023 10:20-0400 Body mass index (BMI) [Ratio] 34.35 kg/m2 Niki Blades Other [employer] Other 08-25-2023 10:20-0400 Body weight 89.36 kg Niki Blades Other [employer] Other 08-16-2023 10:00-0400 Body height 161.29 cm Niki Blades Other [employer] Other 08-16-2023 10:00-0400 Body mass index (BMI) [Ratio] 34.35 kg/m2 Niki Blades Other [facility] [employer] Other 08-16-2023 10:00-0400 Body weight 89.36 kg Niki Blades Other [employer] Other 08-05-2023 07:21-0400 Body temperature 97.8 [degF] DO Broderick Ball Work Phone: [facility] 08-05-2023 07:21-0400 Diastolic blood pressure 73 mm[Hg] DO Broderick Ball Work Phone: [facility] 08-05-2023 07:21-0400 Heart rate 63 /min DO Broderick Ball Work Phone: [facility] 08-05-2023 07:21-0400 Respiratory rate 14 /min DO Broderick Ball Work Phone: [facility] 08-05-2023 07:21-0400 SaO2% (BldA) [Mass fraction] 97 % DO Broderick Ball Work Phone: [facility] 08-05-2023 07:21-0400 Systolic blood pressure 117 mm[Hg] DO Broderick Ball Work Phone: [facility] 08-05-2023 06:00-0400 Body weight 96.7 kg DO Broderick Ball Work Phone: [facility] 08-04-2023 00:00-0400 Inhaled oxygen flow rate 3 L/min DO Broderick Ball Work Phone: [facility] 08-03-2023 07:02-0400 Body height 157.48 cm DO Broderick Ball Work Phone: [facility] 08-03-2023 07:02-0400 Body mass index (BMI) [Ratio] 35 kg/m2 DO Broderick Ball Work Phone: [facility] 07-07-2023 14:20-0400 Body height 161.29 cm Niki Blades Other [employer] Other 07-07-2023 14:20-0400 Body mass index (BMI) [Ratio] 33.65 kg/m2 Niki Blades Other [employer] Other 07-07-2023 14:20-0400 Body weight 87.54 kg Niki Blades Other [employer] Other 07-07-2023 14:20-0400 Diastolic blood pressure 80 mm[Hg] Niki Blades Other [employer] Other 07-07-2023 14:20-0400 Systolic blood pressure 142 mm[Hg] Niki Blades Other [employer] Other 06-04-2023 08:42-0400 Body height 162.56 cm DO Broderick Ball Work Phone: [facility] 06-04-2023 08:42-0400 Body weight 87.08 kg DO Broderick Ball Work Phone: [facility] 05-06-2023 14:30-0400 Body height 161.29 cm Bertram Sanders Other [employer] Other 05-06-2023 14:30-0400 Body mass index (BMI) [Ratio] 33.3 kg/m2 Bertram Sanders Other [employer] Other 05-06-2023 14:30-0400 Body weight 86.64 kg Bertram Didavidy Other [employer] Other 05-06-2023 14:30-0400 Diastolic blood pressure 70 mm[Hg] Bertram Sanders Other [employer] Other 05-06-2023 14:30-0400 Systolic blood pressure 125 mm[Hg] Bertram Sanders Other [employer] Other 05-03-2023 14:30-0400 Body height 161.29 cm Broderick Ball Other [employer] Other 05-03-2023 14:30-0400 Body mass index (BMI) [Ratio] 33.16 kg/m2 Broderick Ball Other [employer] Other 05-03-2023 14:30-0400 Body weight 86.27 kg Broderick Ball Other [employer] Other 05-03-2023 14:30-0400 Diastolic blood pressure 71 mm[Hg] Broderick Ball Other [employer] Other 05-03-2023 14:30-0400 Respiratory rate 12 /min Broderick Ball Other [employer] Other 05-03-2023 14:30-0400 Systolic blood pressure 120 mm[Hg] Broderick Ball Other [employer] Other 03-25-2023 11:00-0400 Body height 161.29 cm Broderick Ball Other [employer] Other 03-25-2023 11:00-0400 Body mass index (BMI) [Ratio] 33.61 kg/m2 Broderick Ball Other [employer] Other 03-25-2023 11:00-0400 Body weight 87.45 kg Broderick Ball Other [employer] Other 03-25-2023 11:00-0400 Diastolic blood pressure 78 mm[Hg] Broderick Ball Other [employer] Other 03-25-2023 11:00-0400 Respiratory rate 12 /min Broderick Ball Other [employer] Other 03-25-2023 11:00-0400 Systolic blood pressure 135 mm[Hg] Broderick Ball Other [employer] Other 01-07-2023 14:15-0500 Body height 161.29 cm Bertram Sanders Other [employer] Other 01-07-2023 14:15-0500 Body mass index (BMI) [Ratio] 32.25 kg/m2 Bertram Ditty Other [employer] Other 01-07-2023 14:15-0500 Body weight 83.92 kg Bertram Tommy Other [employer] Other 01-07-2023 14:15-0500 Diastolic blood pressure 85 mm[Hg] Bertram Sanders Other [employer] Other 01-07-2023 14:15-0500 Systolic blood pressure 155 mm[Hg] Bertram Sanders Other [employer] Other 11-25-2022 11:00-0500 Body height 161.29 cm Broderick Ball Other [employer] Other 11-25-2022 11:00-0500 Body mass index (BMI) [Ratio] 32.25 kg/m2 Broderick Ball Other [employer] Other 11-25-2022 11:00-0500 Body weight 83.92 kg Broderick Ball Other [employer] Other 11-25-2022 11:00-0500 Diastolic blood pressure 78 mm[Hg] Broderick Ball Other [facility] [employer] Other 11-25-2022 11:00-0500 Respiratory rate 12 /min Broderick Ball Other [facility] [employer] Other 11-25-2022 11:00-0500 Systolic blood pressure 118 mm[Hg] Broderick Ball Other [facility] [employer] Other 09-10-2022 13:48-0400 Body height 157.5 cm Alejandro Villar MD, PhD Work Phone: [facility] 09-10-2022 13:48-0400 Body weight 88.27 kg Alejandro Villar MD, PhD Work Phone: [facility] 09-10-2022 13:48-0400 Diastolic blood pressure 86 mm[Hg] Alejandro Vilalr MD, PhD Work Phone: [facility] 09-10-2022 13:48-0400 Heart rate 76 /min Alejandro Villar MD, PhD Work Phone: [facility] 09-10-2022 13:48-0400 Systolic blood pressure 148 mm[Hg] Alejandro Villar MD, PhD Work Phone: [facility] 07-23-2022 10:09-0400 Body height 160 cm Kitty Vidal MD Work Phone: [facility] 07-23-2022 10:09-0400 Body weight 88 kg Kitty Vidal MD Work Phone: [facility] 07-23-2022 10:09-0400 Diastolic blood pressure 66 mm[Hg] Kitty Vidal MD Work Phone: [facility] 07-23-2022 10:09-0400 Heart rate 63 /min Kitty Vidal MD Work Phone: [facility] 07-23-2022 10:09-0400 Systolic blood pressure 136 mm[Hg] Kitty Vidal MD Work Phone: [facility] 01-06-2022 11:30-0500 Body height 161.29 cm Bertram Sanders Other [employer] Other 01-06-2022 11:30-0500 Body mass index (BMI) [Ratio] 30.68 kg/m2 Bertram Sanders Other [employer] Other 01-06-2022 11:30-0500 Body weight 79.83 kg Bertram Sanders Other [facility] [employer] Other Encounters Encounter Date Encounter Type Care Provider Facility Start: 07-05-2024 Non-patient / Non-visit DO Miguel A Howard Work Phone: [facility] Work Phone: Start: 07-05-2024 End: 07-05-2024 ambulatory DO Broderick Howard Work Phone: [facility] Work Phone: Start: 07-05-2024 End: 07-05-2024 Departed Referred DO Broderick Howard Work Phone: [facility]-LAB [facility] Start: 06-29-2024 Non-patient / Non-visit DO Miguel A Howard Work Phone: [facility] Work Phone: Start: 06-29-2024 End: 06-29-2024 ambulatory ALEJANDRO VILLAR Facility:[facility] Start: 06-29-2024 End: 06-29-2024 Patient encounter procedure Alejandro Villar MD, PhD Work Phone: Neurology Comment on above: Focal epilepsy with impairment of consciousness, intractable (HCC) (Primary Dx); Partial epilepsy with impairment of consciousness, intractable (HCC) Start: 06-29-2024 End: 06-29-2024 ambulatory ALEJANDRO VILLAR Facility:[facility] Start: 06-27-2024 End: 06-27-2024 ambulatory DO Broderick Howard Work Phone: [facility] Work Phone: Start: 06-27-2024 End: 06-27-2024 Patient encounter procedure DO Broderick Howard Work Phone: [facility] Work Phone: Start: 06-12-2024 End: 06-12-2024 ambulatory JACK POMPA Not Available Start: 06-08-2024 End: 06-08-2024 ambulatory DO Broderick Howard Work Phone: [facility] Work Phone: Start: 06-08-2024 End: 06-08-2024 Patient encounter procedure DO Broderick Howard Work Phone: [facility] Work Phone: Start: 06-05-2024 Non-patient / Non-visit DO Miguel A Howard Work Phone: [facility] Work Phone: Start: 06-05-2024 End: 06-05-2024 ambulatory Keith Parks MD Facility: [facility] Start: 05-30-2024 End: 05-30-2024 Patient encounter procedure DO Broderick Howard Work Phone: [facility]-MRI [facility] [place] Work Phone: Start: 05-30-2024 End: 05-30-2024 ambulatory DO Broderick Howard Work Phone: [facility] Work Phone: Start: 05-23-2024 End: 05-23-2024 Patient encounter procedure Randa Reilly MD Work Phone: Neurology Comment on above: Intractable 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 aura and without status migrainosus (Primary Dx) Start: 05-23-2024 End: 05-23-2024 ambulatory RANDA Adonis TUCKERREILLY Facility:[facility] Start: 05-15-2024 Non-patient / Non-visit DO Miguel A camargo Ball Work Phone: [facility] Work Phone: Start: 05-15-2024 End: 05-15-2024 ambulatory Keith Parks MD Facility:[facility] Start: 05-05-2024 Non-patient / Non-visit DO Miguel A camargo Ball Work Phone: [facility] Work Phone: Start: 05-03-2024 End: 05-03-2024 ambulatory DAVID MCFADDEN Not Available Start: 04-21-2024 End: 04-21-2024 ambulatory DO Broderick Ball Work Phone: [facility] Work Phone: Start: 04-21-2024 End: 04-21-2024 Patient encounter procedure DO Broderick Ball Work Phone: [facility] Work Phone: Start: 03-29-2024 End: 03-29-2024 Patient encounter procedure DO Broderick Ball Work Phone: [facility] Work Phone: Start: 03-28-2024 End: 03-28-2024 Patient encounter procedure DO Broderick Ball Work Phone: [facility] [place] Work Phone: Start: 03-28-2024 End: 03-28-2024 ambulatory Broderick Ball Facility:[facility] Start: 03-09-2024 End: 03-09-2024 Patient encounter procedure DO Broderick Ball Work Phone: [facility]-Pacemaker Check Start: 03-09-2024 End: 03-09-2024 ambulatory DO Broderick Ball Work Phone: [facility] Work Phone: Start: 03-08-2024 Follow-up encounter Kitty Vidal MD Work Phone: [facility] Department Start: 03-08-2024 Patient encounter procedure Kitty Vidal MD Work Phone: [facility] Start: 03-07-2024 End: 03-07-2024 Patient encounter procedure Randa Reilly MD Work Phone: Neurology Comment on above: Intractable 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 aura and without status migrainosus (Primary Dx); Cervicalgia; SHELL (obstructive sleep apnea) Start: 03-07-2024 End: 03-07-2024 ambulatory RANDA REILLY Facility:[facility] Start: 03-03-2024 Non-patient / Non-visit DO Miguel A Howard Work Phone: [facility] Work Phone: Start: 02-15-2024 Non-patient / Non-visit DO Miguel A Howard Work Phone: [facility] Work Phone: Start: 02-10-2024 Non-patient / Non-visit DO Miguel A Howard Work Phone: [facility] Work Phone: Start: 02-09-2024 End: 02-09-2024 ambulatory [facility] Work Phone: Start: 02-09-2024 End: 02-09-2024 Patient encounter procedure [facility] Work Phone: Start: 12-23-2023 End: 12-23-2023 Patient encounter procedure Alejandro Villar MD, PhD Work Phone: Neurology Comment on above: Intractable 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 aura and without status migrainosus (Primary Dx) Start: 12-23-2023 End: 12-23-2023 ambulatory BRODERICK HOWARD Facility:[facility] Start: 11-24-2023 End: 11-24-2023 ambulatory Broderick Howard Other [employer] Other Start: 11-24-2023 Office outpatient vi sit 15 minutes Broderick Howard [facility] Start: 11-24-2023 End: 11-24-2023 Patient encounter procedure [facility] Work Phone: Start: 09-13-2023 Refill Alejandro wright MD, PhD Work Phone: Neurology Comment on above: Refill Request Patient Update Start: 09-08-2023 End: 09-08-2023 ambulatory MIRIAN BELL Facility:[facility] Start: 09-08-2023 Follow-up encounter Kitty Vidal MD Work Phone: [facility] Start: 09-08-2023 End: 09-08-2023 Patient encounter procedure Kitty Vidal MD Work Phone: [facility] Comment on above: 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); Cardiac pacemaker in situ; Bradycardia Start: 08-25-2023 End: 08-25-2023 ambulatory Niki Blades Other [employer] Other Start: 08-25-2023 Postop follow up vis it related to original px Niki Blades [facility] Neurosurgery Start: 08-16-2023 End: 08-16-2023 ambulatory Niki Blades Other [employer] Other Start: 08-16-2023 Postop follow up vis it related to original px Niki Blades [facility] Neurosurgery Start: 08-13-2023 End: 08-13-2023 ambulatory Broderick Howard Other [employer] Other Start: 08-13-2023 Telephone encounter Broderick Howard [facility] Start: 08-12-2023 Postop follow up vis it related to original px Niki Blades [facility] Neurosurgery Start: 08-12-2023 End: 08-12-2023 ambulatory Niki A Blades [facility] Other Start: 08-03-2023 End: 08-05-2023 Admission to same day surgery center DO Broderick Ball Work Phone: [facility]-Surgery Center [facility] [place] Start: 08-03-2023 End: 08-05-2023 ambulatory DO Broderick Ball Work Phone: [facility] Work Phone: Start: 08-02-2023 End: 08-02-2023 ambulatory Broderick Howard Other [employer] Other Start: 08-02-2023 Telephone encounter Broderick Howard [facility] Start: 07-20-2023 End: 07-20-2023 Patient encounter procedure DO Broderick Ball Work Phone: [facility]-Pre-Surgical Testing Work Phone: Start: 07-20-2023 End: 07-20-2023 ambulatory DO Broderick Lee Work Phone: [facility] Work Phone: Start: 07-09-2023 End: 07-09-2023 ambulatory Niki Blades Other [employer] Other Start: 07-09-2023 Telephone encounter Niki Blades [facility] [employer] Start: 07-07-2023 End: 07-07-2023 ambulatory Niki Blades Other [employer] Other Start: 07-07-2023 Office outpatient ne w 45 minutes Niki Blades [facility] Neurosurgery Start: 06-08-2023 Follow-up encounter Kitty Vidal MD Work Phone: [facility] Start: 06-08-2023 Pacemaker Remote F/U Kitty Vidal MD Work Phone: [facility] Start: 06-04-2023 ambulatory Facility:[id number] Start: 06-04-2023 End: 06-04-2023 ambulatory DO Broderick Howard Work Phone: [facility] Work Phone: Start: 06-04-2023 End: 06-04-2023 Patient encounter procedure DO Broderick Howard Work Phone: [facility]-MRI Main [place] Work Phone: Start: 05-14-2023 ambulatory Facility:[id number] Start: 05-14-2023 End: 05-14-2023 ambulatory DO Broderick Howard Work Phone: [facility] Work Phone: Start: 05-14-2023 End: 05-14-2023 Patient encounter procedure DO Broderick Howard Work Phone: [facility]-Pacemaker Check Start: 05-06-2023 End: 05-06-2023 ambulatory Bertram Sanders Other [employer] Other Start: 05-06-2023 Patient encounter procedure Bertram Sanders [facility] Start: 05-03-2023 End: 05-03-2023 ambulatory Broderick Howard Other [employer] Other Start: 05-03-2023 Office outpatient vi sit 15 minutes Broderick Howard [facility] Start: 05-03-2023 Telephone encounter Broderick SCHWARZ [facility] Start: 03-29-2023 End: 04-14-[address] BRODERICK HOWARD [employer] Other Start: 03-29-2023 Telephone encounter Broderick Dorantes [facility] Start: 03-25-2023 End: 03-25-2023 ambulatory Broderick Howard Other [employer] Other Start: 03-25-2023 Office outpatient vi sit 25 minutes Broderick Howard [facility] Start: 03-15-2023 End: 04-14-2023 ambulatory AGUILAR H FAWWAD Facility:[facility] Start: 02-24-2023 Follow-up encounter Kitty Vidal MD Work Phone: [facility] Start: 02-24-2023 Pacemaker Remote F/U Kitty Vidal MD Work Phone: [facility] Start: 02-15-2023 End: 03-12-2023 ambulatory AGUILAR H FAWWAD Facility:[facility] Start: 02-03-2023 End: 02-03-2023 ambulatory Bertram Sanders Other [employer] Other Start: 02-03-2023 Telephone encounter Bertram Sanders [facility] Start: 01-13-2023 End: 02-12-2023 ambulatory AGUILAR H FAWWAD Facility:[facility] Start: 01-07-2023 End: 01-07-2023 ambulatory Bertram Sanders Other [employer] Other Start: 01-07-2023 Patient encounter procedure Bertram Sanders [facility] Start: 12-16-2022 End: 01-13-2023 ambulatory AGUILAR H FAWWAD Facility:[facility] Start: 11-25-2022 End: 11-25-2022 ambulatory Broderick Howard Other [employer] Other Start: 11-25-2022 Follow-up encounter Kitty Vidal MD Work Phone: [facility] Start: 11-25-2022 Office outpatient vi sit 25 minutes Broderick Howard [facility] Start: 11-25-2022 Pacemaker Remote F/U Kitty Vidal MD Work Phone: [facility] Start: 11-23-2022 Patient encounter procedure Broderick Howard Other [employer] Other Start: 11-16-2022 End: 12-16-2022 ambulatory SHAIKH Guy MAGID Facility:[facility] Start: 10-15-2022 Adult health examination Niki Blades Other [employer] Other Start: 10-15-2022 Gynecological examination normal Niki Blades Other [employer] Other Start: 10-15-2022 End: 11-15-2022 ambulatory SHAIKH Guy ARYANWWAD Facility:[facility] Start: 09-15-2022 End: 10-14-2022 ambulatory AGUILAR H ARYANWMAYELIND Facility:[facility] Start: 09-10-2022 End: 09-10-2022 Patient encounter procedure Alejandro Villar MD, PhD Work Phone: Neurology Comment on above: 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, intractable (HCC) Start: 08-26-2022 Follow-up encounter Kitty Vidal MD Work Phone: [facility] Start: 08-26-2022 Pacemaker Remote F/U Kitty Vidal MD Work Phone: [facility] Start: 08-16-2022 End: 09-14-2022 ambulatory [...] 01-06-2022 End: 01-06-2022 ambulatory Bertram Sanders Other [employer] Other Start: 01-06-2022 Patient encounter procedure Bertram Sanders [facility] Gastroenterology Start: 10-14-2020 End: 10-14-2020 Pre-procedure evaluation check Niki Blades Other [employer] Other Procedures Date Procedure Procedure Detail Performing [...] on above: Result Comment: PERF ORMED BY: [address] [place] [address] PATHOLOGIST DAIRY BAR MANAGER LELE FALK M.D. Start: 08-03-2023 Excision of [...] Blades Other Start: 04-13-2019 Screening mammography D ebdirk Blades Other End: 01-25-2022 Depression screening Niki Blades Other Plan of Treatment Date Care Activity Detail Author Start: 06-29-2027 Diabetes Screening Diabetes Screenin [facility] Start: 01-04-2025 End: 01-04-2025 Patient encounter procedure 01/04/2025 2:00 PM EST Office Visit Neurology [id number] [place] [address] Alejandro Villar MD, PhD [address] [place] [address] Follow up Neurology Comment on above: Follow up Start: 11-28-2024 DIABETES SCREEN DIABETES SCREEN [facility] Start: 11-28-2024 Diabetes Screening Diabetes Screenin [facility] Start: 09-05-2024 End: 09-05-2024 Patient encounter procedure 09/05/2024 1:30 PM EDT Office Visit Neurology [id number] [place] [address] [place] [id number] [place] [address] Botox Neurology Comment on above: Botox Start: 08-31-2024 End: 08-31-2024 Patient encounter procedure 08/31/2024 10:00 AM EDT Office Visit Cardiology [id number] [place] [address] [place] [address] [place], [place] [id number] return in about 1 year (around 09/08/2024) Cardiology Comment on above: return in about 1 ye ar (around 09/08/2024) Start: 07-16-2024 Influenza vaccination Influenza Vacc ine (#1) [facility] Start: 06-29-2024 End: 06-29-2024 Patient encounter procedure 06/29/2024 1:00 PM EDT Office Visit Neurology [id number] [place] [address] Alejandro Villar MD, PhD [address] [place] [address] Follow Up-rescheduled from 06/22 Neurology Comment on above: Follow Up-reschedule d from 06/22 Start: 04-21-2024 Patient referral [facility] Work Phone: Start: 11-15-2023 Advance Directive Discussion Advance Directive Discussion [facility] Start: 08-05-2023 [facility] Start: 08-03-2023 Hospital admission [facility] Start: 08-03-2023 [facility] Start: 07-16-2023 Covid-19 Vaccine ( season) Covid-19 Vaccine ( season) [facility] Start: 07-16-2023 Influenza vaccination [facility] Start: 11-15-2022 ADVANCE DIRECTIVE DISCUSSION ADVANCE DIRECTIVE DISCUSSION [facility] Start: 09-10-2022 End: 11-10-2022 levETIRAcetam [Mass/volume] in Serum or Plasma [facility] Work Phone: Comment on above: Expected: 09/10/2022 , Expires: 11/10/2022 Start: 09-10-2022 End: 11-10-2022 Zonisamide [Mass/volume] in Serum or Plasma [facility] Work Phone: Comment on above: Expected: 09/10/2022 , Expires: 11/10/2022 Start: 07-16-2022 Influenza vaccination INFLUENZA (#1) [facility] Start: 04-30-2022 Screening for malign ant neoplasm of colon [facility] Start: 11-15-2021 ADVANCE DIRECTIVE DISCUSSION ADVANCE DIRECTIVE DISCUSSION [facility] Start: 02-04-2019 Pneumococcal Vaccine : 65+ (2 - PCV) Pneumococcal Vaccine: 65+ (2 - PCV) [facility] Start: 02-04-2019 Pneumococcal Vaccine : 65+ (2 of 2 - PCV) Pneumococcal Vaccine: 65+ (2 of 2 - PCV) [facility] Start: 2015 BONE DENSITY BONE DENSITY [facility] Start: 2015 Bone Density Screening Bone Density Screening [facility] Start: 2015 PNEUMOCOCCAL: 65+ (1 - PCV) PNEUMOCOCCAL: 65+ (1 - PCV) [facility] Start: 2015 Screening for osteoporosis Bone Density Screening [facility] Start: 2010 RSV Vaccine (1 - 1-d ose 60+ series) RSV Vaccine (1 - 1-dose 60+ series) [facility] Start: 2000 SHINGRIX VACCINE (1 of 2) SHINGRIX VACCINE (1 of 2) [facility] Start: 1995 COLOGUARD (FIT-DNA) COLOGUARD (FIT-D NA) [facility] Start: 1995 Colonoscopy COLONOSCOPY [facility] Start: 1995 COLORECTAL CANCER SCREENING COLORECTAL CANCER SCREENING [facility] Start: [address] COLONOGRAPHY [facility] Start: 1995 FECAL OCCULT BLOOD FECAL OCCULT BLOO D [facility] Start: 1995 Lipid 1996 panel - S akila or Plasma Lipid Screening [facility] Start: 1995 Lipid panel [facility] Start: 1995 LIPID SCREEN LIPID SCREEN [facility] Start: 1995 Screening for malign ant neoplasm of colon [facility] Start: 1995 SIGMOIDOSCOPY SIGMOIDOSCOPY [facility] Start: 1990 Mammography [facility] Start: 1990 Screening for malign ant neoplasm of breast Mammogram Screening [facility] Start: 1969 Urine microalbumin profile [facility] Start: 1968 ANNUAL PCP TEAM PUMP OILER YESENIA DISEASE VISIT ANNUAL PCP TEAM CHRONIC DISEASE VISIT [facility] Start: 1968 BP CONTROLLED (<130/80) BP CONTROLLE D (<130/80) [facility] Start: 1968 HEPATITIS C SCREENING HEPATITIS C [facility] Start: 1968 Hepatitis C screening Hepatitis C [facility] Start: 1950 COVID-19 VACCINE (#1) COVID-19 VACCI NE (#1) [facility] End: 07-23-2023 ECG COMPLETE ECG COMPLETE ECG Routine Chronic fatigue 1 Occurrences starting 07/23/2022 until 07/23/2023 [facility] Work Phone: Comment on above: 1 Occurrences starti ng 07/23/2022 until 07/23/2023 ECG COMPLETE ECG COMPLETE ECG Routine Sinus node dysfunction (HCC) Cardiac pacemaker in situ Bradycardia Ordered: 09/08/2023 [facility] Work Phone: Comment on above: Ordered: 09/08/2023 MG Breast - bilatera l Screening [facility] Patient Education [facility] Work Phone: Patient referral [facility] Work Phone: Renal function 2000 panel - Serum or Plasma [facility] Immunizations Immunization Date Immunization Notes Care Provider [facility] 08-31-2023 influenza virus vaccine, unspecified formulation Randa Reilly MD Work Phone: [facility] 07-30-2022 influenza virus vaccine, split virus (incl. purified surface antigen) Niki Weeks Other COM [employer] Other 07-30-2022 influenza virus vaccine, unspecified formulation [facility] 09-10-2021 COVID-19 mRNA-1273 (Moderna) DO Broderick Howard Work Phone: [facility] 07-30-2021 influenza virus vaccine, split virus (incl. purified surface antigen) Niki Blades Other COM DEV Other 07-30-2021 influenza virus vaccine, unspecified formulation [facility] 01-14-2021 COVID-19 mRNA-1273 (Moderna) DO [employer] Work Phone: [facility] 12-17-2020 COVID-19 mRNA-1277 (Moderna) DO [employer] Work Phone: [facility] 09-03-2020 influenza virus vaccine, split virus (incl. purified surface antigen) Niki Blades Other [employer] Other 09-03-2020 influenza virus vaccine, unspecified formulation [facility] 08-23-2019 influenza virus vaccine, split virus (incl. purified surface antigen) Niki Blades Other COM [employer] Other 08-23-2019 influenza virus vaccine, unspecified formulation [facility] 09-07-2018 influenza virus vaccine, split virus (incl. purified surface antigen) Niki Blades Other COM [employer] Other 09-07-2018 influenza virus vaccine, unspecified formulation [facility] 02-04-2018 pneumococcal polysaccharide vaccine, 23 valent Niki Blades Other [facility] Payers Date Payer Category Payer Self-pay [id number] 2021 Unknown [id number] 2015 Private Health Insurance [employer]ORY JUAREZ MEDICARE SUPPLEMENT [id number] 2015-Present [phone] [address] [place] [id number] Indemnity [id number] 2013 Medicare [id number] 2008 Unknown [place] [id number] 1959 Medicare [id number] 1959 Medicare [id number] 2.16.840.1.831610.19 1950 Unknown [id number] 2.16.840.1.175661.3.579.2 .593 1950 Unknown [id number] 2.16.840.1.152545.3.579.2 .593 1950 Unknown [id number] 2.16.840.1.193684.3.579.2 .593 1950 Unknown [id number] 2.16.840.1.280246.3.579.2 .593 1950 Unknown [id number] 2.16.840.1.398938.3.579.2 .593 1950 Unknown [id number] 2.16.840.1.870333.3.579.2 .593 1950 Unknown [id number] 2.16.840.1.114888.3.579.2 .593 1950 Unknown [id number] 2.16.840.1.802431.3.579.2 .593 1950 Unknown [id number] 2.16.840.1.047553.3.579.2 .593 1950 Unknown [id number] 2.16.840.1.306706.3.579.2 .593 1950 Unknown [id number] 2.16.840.1.494426.3.579.2 .593 1950 Unknown [id number] 2.16.840.1.685295.3.579.2 .593 1950 Unknown [id number] 2.16.840.1.356764.3.579.2 .593 1950 Unknown [id number] 2.16.840.1.014940.3.579.2 .593 1950 Unknown [id number] 2.16.840.1.779608.3.579.2 .593 1950 Unknown [id number] 2.16.840.1.965170.3.579.2 .593 1950 Unknown [id number] 2.16.840.1.615382.3.579.2 .593 1950 Unknown [id number] 2.16.840.1.372944.3.579.2 .356 1950 Unknown [id number] 2.840.1.364187.3.579.2 .356 1950 Unknown [id number] 2.16840.1.059178.3.579.2 .196 1950 Unknown [id number] 2.840.1.477158.3.579.2 .196 1950 Unknown [id number] 2.840.1.468732.3.579.2 .1259 1950 Unknown [id number] 2.840.1.666670.3.579.2 .1259 1950 Unknown [id number] 2.16840.1.465306.3.579.2 .1259 1950 Unknown [id number] 2.16840.1.791780.3.579.2 .1259 Unknown [id number] 2.16.840.1.377892.3.579.2 .531 Unknown [id number] 2.16.840.1.597512.3.579.2 .531 Unknown [id number] 2.840.1.403634.3.579.2 .531 Social History Date Type Detail Facility Start: 09-10-2022 End: 09-08-2023 Sex Assigned At [facility] Start: 02-19-2011 End: 06-08-2024 Tobacco smoking status NHIS Never smoked tobacco [facility] Start: 02-19-2011 End: 09-10-2022 Tobacco use and exposure Smokeless tobacco non-user [facility] Start: 11-28-2021 End: 06-29-2024 Alcohol intake Current non-drinker of alcohol (finding) [facility] Start: 1950 Sex Assigned At Not on file [facility] Start: 07-13-2022 End: 09-10-2022 Exposure to SARS-CoV-2 (event) Not sure [facility] Start: 1950 Sex Assigned At Female F [facility] Start: 09-10-2022 End: 09-08-2023 History of Social function [facility] Adult Depression Screening Assessment 2 [facility] Medical Equipment Procedure Code Equipment Code Equipment Origin al Text Equipment Identifier Dates Plate Bn 12mm Cm f Ti 2 H Lp - [id number] Start: 08-16-2015 Pin Crss Sd Scr 1.5x4mm - [id number] Start: 08-16-2015 [id number] Advisa [id number] Start: 05-22-2015 Goals Date Patient Goal Desired Activity /State Personal health goal Functional Status Date Assessment Result Facility 08-05-2023 Functional status Patient at [facility] Work Phone: Mental Status Date Assessment Result Facility 08-05-2023 Cognitive function Cognitive Sta tus Patient at Baseline [facility] Work Phone: Clinical Notes 01-24-2015 to 06-29-2024 Alejandro Villar MD, PhD - 06/29/2024 2:41 PM Tomasa Everett RN - 05/23/2024 11:54 AM Tomasa Everett RN - 05/23/2024 11:54 AM Randa Allen MD - 05/23/2024 11:12 AM EDT Note Date & Type Note Facility 06-29-2024 Note HNO ID: [id number] Author: ALEJANDRO VILLAR MD, PhD Service: ? Author Type: Physician Type: Progress Notes Filed: 07/03/2024 12:56 Note Text: [facility] Patient Name: Cassi Rodrigez Date of : 1950 ESTABLISHED EPILEPSY CLINIC NOTE 06/29/2024 1:00 PM Reason for Visit: Epilepsy Clinical Summary: Ms. Rodrigez is a 74 year old female seen in [facility] Epilepsy Center. Classification Summary HISTORY OF [...] and s/p lumbar laminectomy in 07/2023. 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 - levET (more content not included)... [facility] 06-29-2024 History of Presen t illness Narrative [facility] Patient Name: Cassi Rodrigez Date of : 1950 ESTABLISHED EPILEPSY CLINIC NOTE 06/29/2024 1:00 PM Reason for Visit: Epilepsy Clinical Summary: Ms. Rodrigez is a 74 year old female seen in [facility] Epilepsy Center. Classification Summary HISTORY OF [...] and s/p lumbar laminectomy in 07/2023. At [facility] in Dec 2023, ZNS was increased to [...] Screen] - 3 [Positive Anxiety Screen] - FANAT 7 SCORE - - 8 [Mild Anxiety [...] - Seizure risk factors: Brain Tumor Unanswered MATERIAL ASSISTANT Infections Unanswered Developmental Delay Unanswered Family history [...] - 1.02 mg/dL 1.60 High TBH EGFR-AF MONGOLIAN >=60 38 Low TBH EGFR-NON AF MONGOLIAN >=60 32 Low BUN CREATININE RATIO 15.0 [...] Ocular Disease Other SOCIAL HISTORY: -Lives in [place], [place] Review of Systems all other review [...] and s/p lumbar laminectomy in 07/2023. At [facility] in Dec 2023, ZNS was increased to [...] which included: preparing to see the patient [id number] patient care completing clinical documentation obtaining and/or reviewing separately obtained history performing a medically appropriate examination Alejandro Villar MD, PhD cc: Primary Care Physician: Broderick Howard, DO [address] [facility] [address] Referring: Patient: Ms. Cassi Rodrigez [id number] [facility] [address] documented in this encounter [facility] 05-23-2024 Nurse Note Patient name and confirmed. Patient states she would like to receive Botox treatment today. 2 vials of Botox A (100 units in each) reconstituted with 2.2 cc of normal saline in each vial. Botox drawn up into four, 1 cc syringes. Each syringe containing 50 units of Botox. Assisted by: Diann VARELA Botox, 2 vials: Lot # [id number] Exp 08 Lot # [id number] Exp Botox handed to Dr. Reilly to administer and verified order. [facility] 05-23-2024 Nurse Note Patient name and confirmed. Patient states she would like to receive Botox treatment today. 2 vials of Botox A (100 units in each) reconstituted with 2.2 cc of normal saline in each vial. Botox drawn up into four, 1 cc syringes. Each syringe containing 50 units of Botox. Assisted by: Diann VARELA Botox, 2 vials: Lot # [id number] Exp 08 Lot # [id number] Exp Botox handed to Dr. Reilly to administer and verified order. documented in this encounter [facility] 05-23-2024 Note HNO ID: [id number] Author: RANDA REILLY MD Service: ? Author [...] Injection Sites Muscle Fixed Site/Fixed Dose Bilat Edger Feeder 20 U divided in 2 sites Procerus [...] Total Units wasted: 0 Randa Reilly MD [facility] 05-23-2024 Procedure note BOTOX PROCEDURE NOTE Responsible [...] Injection Sites Muscle Fixed Site/Fixed Dose Bilat Edger Feeder 20 U divided in 2 sites Procerus [...] wasted: 0 Randa Reilly MD [facility] [place] [facility] 05-23-2024 Procedure note BOTOX PROCEDURE NOTE [...] procedure note Treatment # 1 Consent in [facility] Dilution: 5 units/0.1 ml ( 100 unit vial with 2 cc diluent or 200 unit vial with 4 cc diluent) Diluent: normal saline Indication: Chronic Intractable Migraine Right temporal metal plate with skin irregularity, no shunt Injection Sites Muscle Fixed Site/Fixed Dose Bilat Edger Feeder 20 U divided in 2 sites Procerus [...] Total Units wasted: 0 Randa Reilly MD [facility] documented in this encounter [facility] 03-15-2024 Note DUAL CHAMBER [facility] ER [...] Documents section. [facility] 03-07-2024 Note HNO ID: [id number] Author: RANDA REILLY MD Service: ? Author Type: Physician Type: Progress Notes Filed: 03/07/2024 13:16 Note Text: PROGRESS NOTE- HEADACHE MEDICINE SERVICE DATE: March 07, 2024 Location: [facility] Participants: patient, and provider HPI: [...] I spent at least 50% of the [id number]-sn-[id number] time in counseling, explanation of diagnosis, planning of further management, and answering all questions. Randa Reilly MD [facility] Neurological [facility] 03-07-2024 History of Presen t illness Narrative PROGRESS NOTE- HEADACHE MEDICINE SERVICE DATE: March 07, 2024 Location: [facility] Participants: patient, and provider HPI: [...] I spent at least 50% of the qrtv-ym-[id number] time in counseling, explanation of diagnosis, planning of further management, and answering all questions. Randa Reilly MD [facility] [place] documented in this encounter [facility] 12-23-2023 Instructions Lauren Otero APRN.NIC - 12/23/2023 9:42 AM EST To schedule with headache clinic (can schedule at [facility]): [phone] documented in this encounter [facility] 12-23-2023 History of Presen t illness Narrative [facility] EPILEPSY CENTER CHIEF COMPLAINT: Patient [...] was referred [facility] past but at this time [...] There is no focal weakness. PREVIOUS EVALUATIONS: [facility], 05/2015: Right Temporal Epilepsy Seizures: Aura -> [...] continue LEV 750 mg BID - discuss SHLEL treatment/ possible sleep study with PCP, will let us know if she decides to pursue at [facility] - she needs for spine doctor, plans to talk to PCP first but will let us know if she needs referral to someone here at [facility] - ENT referral as needed for change [...] MD, PhD in collaboration with Lauren Otero APRN.NUISANCE WILDLIFE CONTROL OPERATOR December 23, 2023 documented in this encounter [facility] 12-23-2023 Note HNO ID: [id number] Author: ALEJANDRO VILLAR MD, PhD Service: ? Author Type: Physician Type: Progress Notes Filed: 12/23/2023 13:37 Note Text: [facility] EPILEPSY CENTER CHIEF COMPLAINT: Patient [...] was referred to the headache clinic [facility] in the past but at this time [...] There is no focal weakness. 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 Intermittent Slow, Regional Right temporal Ictal (more content not included)... [facility] 11-24-2023 Evaluation note Encounter Date Diagnosis Assessment Notes Nov, Acute non-recurrent maxillary sinusitis (ICD-10 - J01.00) Instructed to use Robitussin or Mucinex for cough, saline or Flonase NS for congestion, Tylenol for pain and fever. Nov, Primary hypertension (ICD-10 - I10) Increased risk for more serious, prolonged illness. COM DEV Other [id number] Miscellaneous Notes* Telephone Encounter - Mirian Bell APRN.CNP - 09/13/2023 1:53 PM EDT Thank you reviewed scan documents. Mirian Bell APRN.NIC * Telephone Encounter - Brenda Hodges RN - 09/13/2023 7:58 AM EDT Received medical records from [facility] and scanned into chart for review. [facility] Miscellaneous Notes* Telephone Encounter - Daniel [...] Please E-Scribe Caller Contact Number: Pharmacy Name: [facility] Pharmacy Number: [phone] Generic/ brand: 30 or 90 day supply requested: 90 Last appointment: 09/10/22 Next Appointment: 12/09/[address] Villar documented in [facility]2023 NoteHNO ID: [id number] Author: Mirian Bell APRN.CNP Service: ? Author Type: Nurse Practitioner Type: Progress Notes Filed: 09/08/2023 3:29 PM Note Text: [facility] [place] [facility] Department of Cardiovascular Medicine SECTION OF CARDIAC PACING and ELECTROPHYSIOLOGY OUTPATIENT VISIT DATE September 08, 2023 OUTPATIENT VISIT TYPE ESTABLISHED PRIMARY CARE PHYSICIAN: Broderick Howard (Zack) [address] [place] [address] CHIEF COMPLAINT: follow up device management HISTORY [...] right leg DVT (2012), seizure, SHELL, IBS, usp anticoagulation. Moderate functional capacity (active with ADL, [...] content not included)...[facility] [place] 09-08-2023 Instructions* Patient Instructions* Mirian Bell APRN.CNP - 09/08/2023 3:21 PM EDT Please schedule for device check & in one year Please have patient sign release of medical labs from [facility] had labs last month documented in [facility] encounterC[facility] History of Present illness Narrative* Mirian Bell APRN.CNP - 09/08/2023 2:30 PM EDT Images from the original note were not included. [facility] Department of Cardiovascular Medicine SECTION OF CARDIAC PACING and ELECTROPHYSIOLOGY OUTPATIENT VISIT DATE September 08, 2023 OUTPATIENT VISIT TYPE ESTABLISHED PRIMARY CARE PHYSICIAN: Broderick Howard (Zack) [address] [place] [address] CHIEF COMPLAINT: follow up device management HISTORY [...] right leg DVT (2012), seizure, SHELL, IBS, medical terminologist anticoagulation. Moderate functional capacity (active with ADL, [...] 09-08-2023 Dual chambered pacer EVALUATION PRESENTS FOR: NUISANCE WILDLIFE CONTROL OPERATOR visit PRESENTING EGM: AP/VS UNDERLYING RHYTHM: BATTERY [...] 4. Annual labs, I will obtain from [facility] she had last month Follow up appointment: Dr. Garner & device check in one year I spent 25 to 30 minutes in the visit, with more than 50% of the total nvmz-oc-hkva time of the visit in counseling / coordination of care. CONTACT INFORMATION: Mirian Bell APRN.NIC, 09/08/23 [facility] Cardiology Second Floor [address] [place] [address] documented in this encounterC[facility]10-11-2023 Evaluation note* Encounter Date Diagnosis Assessment Notes Treatment Notes Treatment Clinical Notes Aug, Lumbar stenosis with neurogenic claudication (ICD-10 - M48.062) [email or web address] [facility] [employer] Other 10-02-2023 Evaluation note* Encounter Date Diagnosis Assessment Notes Treatment Notes Treatment Clinical Notes Aug, Lumbar stenosis with neurogenic claudication (ICD-10 - M48.062) COM [employer] Other 09-28-2023 Evaluation note* Encounter Date Diagnosis Assessment Notes Treatment Notes Treatment Clinical Notes Jul, Lumbar stenosis with neurogenic claudication (ICD-10 - M48.062) [employer] Other 09-20-2023 Progress note Author Niki Weeks [facility] August 04, 2023 7:57am Note Date/Time August 04, 2023 7:57am [facility] [address] [place] [address] Neurosurgery Progress Note Signed Patient: Cassi Rodrigez MR#: [id number] : 1950 Acct:[id number] Age/Sex: 73 / F Adm Date: 3 Loc: 4N Room: 2I4647-4 Type: REG SDC Attending Dr: Niki Weeks [...] % (Auto) 91.6, Lymph % (Auto) 4.4, Alger % (Auto) 4.0, Eos % (Auto) 0.0, Baso % (Auto) 0.0, Nucleat RBC Rel Count 0.1, Neut # (Auto) 10.4 H, Lymph #(Auto) 0.5 L, Alger # (Auto) 0.5, Eos # (Auto) 0.0, Baso # (Auto) 0.0 08/03/23 14:09: Blood Type Recheck A Positive 08/03/23 06:35: Blood Type A Positive, Antibody Screen Negative Assessment/Plan Assessment/Plan (1) Lumbar stenosis with neurogenic claudication: Plan: Mrs. Rodrigez is pod#1 s/p lumbar decompression secondary to lumbar stenosis. Fidewill increase her activity today with the assistance of physical therapy and occupationaly therapy groups. Her hemovac has been placed to gravity and I will monitor its output. Code(s): M48.062 - Spinal stenosis, lumbar region with neurogenic claudication Status: Acute Time Spent With Patient (min): 30 Documented By: Niki Weeks MD 08/04/23 075 2 Signed By: <Electronically signed by Niki Weeks MD> 08/04/23 0757 [facility] Work Phone: 1(182) 820-266608-23-2023 Evaluation note* Encounter Date Diagnosis Assessment Notes Treatment Notes Treatment Clinical Notes Jun, Lumbar stenosis with neurogenic claudication (ICD-10 - M48.062) [employer] Other 06-22-2023 Evaluation note* Encounter Date Diagnosis [...] will continue with this therapy without change. [employer] Other 06-19-2023 Evaluation note* Encounter Date Diagnosis Assessment Notes Treatment Notes Treatment Clinical Notes Apr, Lumbosacral spondylosis with radiculopathy (ICD-10 - M47.27) COM [employer] Other 06-19-2023 Evaluation note* Encounter Date Diagnosis [...] until MRI completed MRI being rescheduled for [facility] due to PM Apr, Stage 3b chronic kidney disease (ICD-10 - N18.32) The patient is instructed on adequate control of hypertension and diabetes, if appropriate. They are also educated on the associated risks of NSAIDs and PPI use with kidney disease. They were instructed on adequate fluid balance and to avoid dehydration. Apr, History of lumbar fusion (ICD-10 - Z98.1) COM [employer] Other 05-15-2023 Evaluation note* Encounter Date Diagnosis Assessment Notes Treatment Notes Treatment Clinical Notes March, Lumbosacral spondylosis with radiculopathy (ICD-10 - M47.27) [employer] Other 05-11-2023 Evaluation note* Encounter Date Diagnosis [...] use, the patient reduces the risk for DC, CVA, HTN, cardiac dysrhythmias and sudden cardiac [...] Other Stable w/o breakthrough Sz. Secondary to MATERIAL ASSISTANT surgery Continue surveillance w/ COM DEV Other 2023 Evaluation note* Encounter Date Diagnosis Assessment Notes Treatment Notes Treatment Clinical Notes Jan, Nausea (ICD-10 - R11.0) [employer] Other 02-23-2023 Evaluation note* Encounter Date Diagnosis Assessment Notes Treatment Notes Treatment Clinical Notes Dec, Nausea (ICD-10 - R11.0) Increase Amitriptyline to 15mg at bedtime Dec, Constipation (ICD-10 - K59.00) Start Linzess 72mcg daily Pt to call if symptoms worsen or return Follow up in 4 months COM DEV Other 01-11-2023 Evaluation note* Encounter Date Diagnosis [...] use, the patient reduces the risk for DC, CVA, HTN, cardiac dysrhythmias and sudden cardiac [...] to trial Amitiza and discuss w/ GI COM DEV Other 10-27-2022 History of Present illness Narrative* Lauren Otero APRN.NIC - 09/10/2022 1:53 PM EDT [facility] EPILEPSY CENTER CHIEF COMPLAINT: Patient [...] Dr. Alejandro Villar, last seen by Lauren Oetro CNP on 09/19/2021. Today, she states she [...] [facility] but at this time [...] There is no focal weakness. PREVIOUS EVALUATIONS: [facility], 05/2015: Right Temporal Epilepsy Seizures: Aura -> [...] Alejandro Villar. documented [facility] History of Present illness Narrative* Kitty Vidal MD - 07/23/2022 10:00 AM EDT Images from the original note were not included. [facility] Guy Renteria Department of Cardiovascular Medicine SECTION OF CARDIAC PACING and ELECTROPHYSIOLOGY OUTPATIENT VISIT DATE July 23, 2022 OUTPATIENT VISIT TYPE ESTABLISHED PRIMARY CARE PHYSICIAN: Broderick Howard MD ([facility]) [address] [place] [address] CHIEF COMPLAINT: Pacemaker management HISTORY OF PRESENT [...] Lymph 1.00 - 4.00 k/uL 0.93 (L) Alger% % 7.7 Abs Alger <0.87 k/uL 0.32 Eosin% % 5.3 Abs [...] MD Electrophysiology documented in this encounterC[facility] Evaluation note* Encounter Date Diagnosis Assessment Notes Treatment Notes Treatment Clinical Notes Dec, Nausea (ICD-10 - R11.0) PATIENT STATES THAT THIS HAS IMPROVED. PATIENT TO CONTINUE ON THE AMITRIPTYLINE DOSE AT THIS TIME. COM DEV Other 03-12-2015 History of Past illness Narrative* Problem Noted Date Resolved Date Seizure 01/24/2015 06/21/2018 documented as of this encounter (statuses as of 07/23/2022) [facility] History of Past illness Narrative* Problem Noted Date Resolved Date Seizure 01/24/2015 06/21/2018 documented as of this encounter (statuses as of 08/26/2022) [facility] History of Past illness Narrative* Problem Noted Date Resolved Date Seizure 01/24/2015 06/21/2018 documented as of this encounter (statuses as of 09/10/2022) [facility] of Past illness Narrative* Problem Noted Date Resolved Date Seizure 01/24/2015 06/21/2018 documented as of this encounter (statuses as of 11/26/2022) [address]12-2015 History of Past illness Narrative* Problem Noted Date Resolved Date Seizure 01/24/2015 06/21/2018 documented as of this encounter (statuses as of 02/25/2023) [address]12-2015 History of Past illness Narrative* Problem Noted Date Diagnosed Date Resolved Date Seizure 01/24/2015 06/21/2018 documented as of this encounter (statuses as of 06/17/2023) [address]12-2015 History of Past illness Narrative* Problem Noted Date Diagnosed Date Resolved Date Seizure 01/24/2015 06/21/2018 documented as of this encounter (statuses as of 09/08/2023) [address]12-2015 History of Past illness Narrative* Problem Noted Date Diagnosed Date Resolved Date Seizure 01/24/2015 06/21/2018 documented as of this encounter (statuses as of 09/09/2023) [address]12-2015 History of Past illness Narrative* Problem Noted Date Diagnosed Date Resolved Date Seizure 01/24/2015 06/21/2018 documented as of this encounter (statuses as of 09/14/2023) [address]-2015 History of Past illness Narrative* Problem Noted Date Diagnosed Date Resolved Date Seizure 01/24/2015 06/21/2018 documented as of this encounter (statuses as of 09/14/2023) [address]-2015 History of Past illness Narrative* Problem Noted Date Diagnosed Date Resolved Date Seizure 01/24/2015 06/21/2018 documented as of this encounter (statuses as of 12/23/2023) [facility] Author Niki Weeks [facility] August 05, 2023 8:09am Note Date/Time August 05, 2023 8:09am [facility] [address] [place] [address] Discharge Summary Signed Patient: Cassi Rodrigez MR#: [id number] : 1950 Acct:[id number] Age/Sex: 73 / F Adm Date: 3 Loc: 4N Room: 0O3216-[address]: Niki Weeks MD Copies to: [...] % (Auto) 77.1, Lymph % (Auto) 11.8, Alger % (Auto) 9.2, Eos % (Auto) 1.7, Baso % (Auto) 0.2, Nucleat RBC Rel Count 0.4, Neut # (Auto) 5.6, Lymph # (Auto) 0.9 L, Alger # (Auto) 0.7, Eos # (Auto) 0.1, [...] signed by Niki Weeks MD> 08/05/23 0809 [facility] Work Phone: Evaluation note* Diagnosis Chronic fatigue- Primary Other malaise and fatigue documented in this encounter [facility] note* Diagnosis Partial epilepsy with impairment of consciousness, intractable (HCC) Localization-related (focal) (partial) epilepsy and epileptic syndromes with complex partial seizures, with intractable epilepsy documented in this encounter [facility] noteNo assessment information availableC[facility] Work Phone: Evaluation noteNo InformationNort Gather.md Other evaluation note* Diagnosis Onset Date Resolution Status Lumbar stenosis with neurogenic claudication acute [facility] Work Phone: Evaluation note* Diagnosis Sinus node dysfunction (HCC)- Primary Sinoatrial node dysfunction Cardiac pacemaker in situ Bradycardia Other specified cardiac dysrhythmias [facility] Diagnosis Partial epilepsy with impairment of consciousness, intractable (HCC) Localization-related (focal) (partial) epilepsy and epileptic syndromes with complex partial seizures, with intractable epilepsy documented in this encounter [facility]* Diagnosis Pacemaker [Z95.0]- Primary Cardiac pacemaker in situ documented in this encounter [facility]* Diagnosis Intractable 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 aura and without status migrainosus- Primary Chronic migraine without aura, with intractable migraine, so stated, without mention of status migrainosus documented in this encounter [facility]* Diagnosis Intractable 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 aura and without status migrainosus- Primary Chronic migraine without aura, with intractable migraine, so stated, without mention of status migrainosus Cervicalgia SHELL (obstructive sleep apnea) Obstructive sleep apnea (adult) (pediatric) documented in this encounter [facility]* Diagnosis Onset Date Resolution Status Hypertension acute Lumbar stenosis with neurogenic claudication acute [facility] Work Phone: Evaluation note* Diagnosis Onset Date Resolution Status Hypertension acute Lumbar stenosis with neurogenic claudication acute Age-related osteoporosis wit hout current pathological fracture acute Chronic kidney disease acute Hypertension acute Lumbosacral spondylosis with radiculopathy acute Obstructive sleep apnea acwi e [facility] Work Phone: Evaluation note* Diagnosis Intractable 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 aura and without status migrainosus- Primary Chronic migraine without aura, with intractable migraine, so stated, without mention of status migrainosus documented in this encounter [facility]* Diagnosis Onset Date Resolution Status Age-related osteoporosis wit hout current pathological fracture acute Chronic kidney disease acute Hypertension acute Lumbosacral spondylosis with radiculopathy acute Obstructive sleep apnea acut e Arthropathy of right hip acu te Greater trochanteric bursitis of both hips acute History of lumbar surgery ac [place] Pain of both sacroiliac joints acute [facility] Work Phone: Evaluation note* Diagnosis Onset Date Resolution Status Age-related osteoporosis wit hout current pathological fracture acute Chronic kidney disease acute Hypertension acute Lumbosacral spondylosis with radiculopathy acute Obstructive sleep apnea acut e Arthropathy of right hip acu te Greater trochanteric bursitis of both hips acute History of lumbar surgery ac [place] Pain of both sacroiliac joints acute Anemia of renal disease acut e Chronic kidney disease acute [id number] acute Leukopenia acute Pancreatic cancer acute Secondary hyperparathyroidism acute Vitamin D deficiency acute [facility] Work Phone: Evaluation note* Diagnosis Onset Date Resolution Status Age-related osteoporosis wit hout current pathological fracture acute Chronic kidney disease acute Hypertension acute Lumbosacral spondylosis with radiculopathy acute Obstructive sleep apnea acut e Arthropathy of right hip acu te Greater trochanteric bursitis of both hips acute History of lumbar surgery ac [place] Pain of both sacroiliac joints acute Anemia of renal disease acut e CKD (chronic kidney disease) stage 4, GFR 15-29 ml/min acute [id number] acute Leukopenia acute Secondary hyperparathyroidism acute Age-related osteoporosis wit hout current pathological fracture acute Chronic kidney disease acute Gastroesophageal reflux dise ase with esophagitis without hemorrhage acute History of pancreatic cancer acute Hypertension acute Lumbar stenosis with neurogenic claudication acute Major depression acute Medicare annual wellness visit, subsequent noneactive Screening mammogram for breast cancer noneactive [facility] Work Phone: Evaluation note* Diagnosis Focal epilepsy with impairment of consciousness, intractable (HCC)- Primary Localization-related (focal) (partial) epilepsy and epileptic syndromes with simple partial seizures, with intractable epilepsy Partial epilepsy with impairment of consciousness, intractable (HCC) Localization-related (focal) (partial) epilepsy and epileptic syndromes with complex partial seizures, with intractable epilepsy documented in this encounter [facility]* Diagnosis Onset Date Resolution Status Arthropathy of right hip acu te Greater trochanteric bursitis of both hips acute History of lumbar surgery ac [place] Pain of both sacroiliac joints acute Anemia of renal disease acut e CKD (chronic kidney disease) stage 4, GFR 15-29 ml/min acute [id number] acute Leukopenia acute Secondary hyperparathyroidism acute Age-related osteoporosis wit hout current pathological fracture acute Chronic kidney disease acute Gastroesophageal reflux dise ase with esophagitis without hemorrhage acute History of pancreatic cancer acute Hypertension acute Lumbar stenosis with neurogenic claudication acute Major depression acute Medicare annual wellness visit, subsequent noneactive Screening mammogram for breast cancer noneactive [facility] Work Phone: History general Narrative - Reported* Type Description Date Surgical History back surgery-2 Surgical History cervical fusion Surgical History cholecystectomy Surgical History whipple procedure 2011 Surgical History appendectomy Surgical History hammer toe Surgical History rotator cuff-left Surgical History temporal lumpectomy Hospitalization History see surgical COM DEV Other Hisumcv general Narrative - Reported* Type Description Date [...] Essential hypertension Medical History Current use of medical terminologist anticoa gulation Medical History History of pancreatic [...] temporal lumpectomy Hospitalization History see surgical hx COM DEV Other Hisvcnl general Narrative - Reported* Type Description Date [...] Essential hypertension Medical History Current use of medical terminologist anticoa gulation Medical History History of pancreatic [...] Port removal Hospitalization History see surgical hx COM DEV Other History general Narrative - Reported* Type [...] Obstructive sleep apnea Medical History Encounter for [facility] [place] exam with routine gynecological exam [...] Essential hypertension Medical History Current use of usp anticoa gulation Medical History History of pancreatic [...] L4-5 07/2023 Hospitalization History see surgical hx COM DEV Other Hospital Discharge instructions Additional Instructions Eat a well balanced dietParkview Health [facility] Work Phone: Hospital Discharge instructionsAmbulatory Orders* Referral to Orthopedic Surgery Location: None Selected [facility] Work Phone: Progress note Author Niki Weeks [facility] August 05, 2023 8:00am Note Date/Time August 05, 2023 8:00am [facility] [address] [place] [address] Neurosurgery Progress Note Signed Patient: Cassi Rodrigez MR#: [id number] : 1950 Acct:[id number] Age/Sex: 73 / F Adm Date: 3 Loc: 4N Room: [address] [place] [address] Type: [facility] Attending Dr: Niki Weeks MD Copies [...] % (Auto) 77.1, Lymph % (Auto) 11.8, Alger % (Auto) 9.2, Eos % (Auto) 1.7, Baso % (Auto) 0.2, Nucleat RBC Rel Count 0.4, Neut # (Auto) 5.6, Lymph # (Auto) 0.9 L, Alger # (Auto) 0.7, Eos # (Auto) 0.1, [...] signed by Niki Weeks MD> 08/05/23 0800 [facility] Work Phone: [facility] for referral (narrative)* Outpatient Procedure (Routine) - Closed Specialty Diagnoses / Procedures Referred By Contac t Referred To Contact [facility] [place] Diagnoses Chronic fatigue Procedures ECG COMPLETE ECG ROUTINE ECG W/LEAST 12 LDS W/I&[place] [address] [place] [address] [facility] [address] [place] [address] Referral ID Status Reason Start Date Expiration Date V isits Requested Visits Authorized [id number] Closed Auto-Generate d Referral 07/23/2022 07/23/2023 1 1 [facility] for referral (narrative)* Outpatient Procedure (Routine) - Pending Review Specialty Diagnoses / Procedures Referred By Contac t Referred To Contact [facility] [place] Diagnoses Sinus node dysfunction (HCC) Cardiac pacemaker in situ Bradycardia Procedures ECG COMPLETE ECG ROUTINE ECG W/LEAST 12 LDS W/I&R Mirian Bell, CONNIE.NUISANCE WILDLIFE CONTROL OPERATOR [address] [place] [address] [facility] [address] [place] [address] Referral ID Status Reason Start Date Expiration Date Visits Requested Visits Authorized [id number] Pending Review Auto-Generat ed Referral 3 09/07/2024 1 1 [facility] Summary Purpose Family History No Family [...] Chief Complaint Cough , Drainage For Weeks [phone] BACK ISSUES Chief Complaint BACK ISSUES Amb [...] Anemia of renal disease Chronic kidney disease [id number] Leukopenia Pancreatic cancer Secondary hyperparathyroidism Vitamin D [...] kidney disease) stage 4, GFR 15-29 ml/min [id number] Leukopenia Secondary hyperparathyroidism Age-related osteoporosis without current pathological fracture Chronic kidney disease Gastroesophageal reflux disease with esophagitis without hemorrhage History of pancreatic cancer Hypertension Lumbar stenosis with neurogenic claudication Major depression Medicare annual wellness visit, subsequent Screening mammogram for breast cancer Chief Complaint increased pain as be fore surgery w/blades m54.16 RENAL CKD MAWV Unknown Reason for Visit Arthropathy of right hip Greater trochanteric bursitis of both hips History of lumbar surgery Pain of both sacroiliac joints Anemia of renal disease CKD (chronic kidney disease) stage 4, GFR 15-29 ml/min [id number] Leukopenia Secondary hyperparathyroidism Age-related osteoporosis without current pathological fracture Chronic kidney disease Gastroesophageal reflux disease with esophagitis without hemorrhage History of pancreatic cancer Hypertension Lumbar stenosis with neurogenic claudication Major depression Medicare annual wellness visit, subsequent Screening mammogram for breast cancer Reason for Referral Specialty Diagnoses / Procedures Referred By Saturnino t Referred To Contact [facility] Diagnoses Cervicalgia Procedures CONSULT TO [facility] OFFICE/OUTPATIENT [facility] [address] [place] [address] [place] [address] Referral ID Status Reason Start Date Expiration Date Visits Requested Visits Authorized [id number] Authorized PCP Requested Referral 03/07/2024 03/07/2025 1 1 Specialty Diagnoses / Procedures Referred By Contac t Referred To Contact Diagnoses SHELL (obstructive sleep apnea) Procedures CONSULT TO SLEEP MEDICINE - ADULT OFFICE/OUTPATIENT [facility] [address] [place] [address] [place] [address] Referral ID Status Reason Start Date Expiration Date Visits Requested Visits Authorized [id number] Authorized PCP Requested Referral 03/07/2024 03/07/2025 1 1 Specialty Diagnoses / Procedures Referred By Contac t Referred To Contact [facility] Diagnoses Intractable 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 aura and without status migrainosus Procedures CONSULT TO HEADACHE CLINIC OFFICE/OUTPATIENT [facility] 60 MINUTES Lauren Otero, CONNIE.NUISANCE WILDLIFE CONTROL OPERATOR [address] [place] [place] [phone] [facility] [address] [place] [id number] Referral ID Status Reason Start Date Expiration Date Visits Requested Visits Authorized [id number] Authorized PCP Requested Referral 12/23/2023 12/22/2024 1 [...] migrainosus Procedures CONSULT TO HEADACHE CLINIC OFFICE/OUTPATIENT [facility] 60 MINUTES Lauren Otero, CONNIE.NUISANCE WILDLIFE CONTROL OPERATOR [address] [phone] Neur Headache Main [address] [place] [id number] Referral ID Status Reason Start Date Expiration Date V isits Requested Visits Authorized [id number] Closed PCP Requested Referral 12/23/2023 12/22/2024 1 1 Reason Comments Established Patient botox Specialty Diagnoses / Procedures Referred By Contac t Referred To Contact ADULT NEUROLOGY Diagnoses Chronic migraine without aura, intractable, without status migrainosus Procedures BOTULINUM TOXIN A PER 1 UNIT CHEMODERVATE FACIAL/TRIGEM/[place] [address] [address] [place] [address] Neur Adult [address] [place] [id number] Referral ID Status Reason Start Date Expiration Date V isits Requested Visits Authorized [id number] Authorized 03/13/2024 03/13/2025 4 4 Reason Comments Epilepsy Source Comments (unrecognize d section and content) In the event this informatio n is protected by the Federal Confidentiality of Alcohol and Drug Abuse Patient Records regulations: The Federal rules restrict any use of the information to criminally investigate or prosecute any alcohol or drug abuse patient.[facility] Hospital[facility] the event this information is protected by the Federal Confidentiality of Alcohol and Drug Abuse Patient Records regulations: The Federal rules restrict any use of the information to criminally investigate or prosecute any alcohol or drug abuse patient.[facility] HospitalIn the event this information is protected by the Federal Confidentiality of Alcohol and Drug Abuse Patient Records regulations: The Federal rules restrict any use of the information to criminally investigate or prosecute any alcohol or drug abuse patient.[facility] HospitalIn the event this information is protected by the Federal Confidentiality of Alcohol and Drug Abuse Patient Records regulations: The Federal rules restrict any use of the information to criminally investigate or prosecute any alcohol or drug abuse patient.[facility] HospitalIn the event this information is protected by the Federal Confidentiality of Alcohol and Drug Abuse Patient Records regulations: The Federal rules restrict any use of the information to criminally investigate or prosecute any alcohol or drug abuse patient.[facility] HospitalIn the event this information is protected by the Federal Confidentiality of Alcohol and Drug Abuse Patient Records regulations: The Federal rules restrict any use of the information to criminally investigate or prosecute any alcohol or drug abuse patient.[facility] HospitalIn the event this information is protected by the Federal Confidentiality of Alcohol and Drug Abuse Patient Records regulations: The Federal rules restrict any use of the information to criminally investigate or prosecute any alcohol or drug abuse patient.[facility] HospitalIn the event this information is protected by the Federal Confidentiality of Alcohol and Drug Abuse Patient Records regulations: The Federal rules restrict any use of the information to criminally investigate or prosecute any alcohol or drug abuse patient.[facility] HospitalIn the event this information is protected by the Federal Confidentiality of Alcohol and Drug Abuse Patient Records regulations: The Federal rules restrict any use of the information to criminally investigate or prosecute any alcohol or drug abuse patient.[facility] HospitalIn the event this information is protected by the Federal Confidentiality of Alcohol and Drug Abuse Patient Records regulations: The Federal rules restrict any use of the information to criminally investigate or prosecute any alcohol or drug abuse patient.[facility] HospitalIn the event this information is protected by the Federal Confidentiality of Alcohol and Drug Abuse Patient Records regulations: The Federal rules restrict any use of the information to criminally investigate or prosecute any alcohol or drug abuse patient.[facility] HospitalIn the event this information is protected by the Federal Confidentiality of Alcohol and Drug Abuse Patient Records regulations: The Federal rules restrict any use of the information to criminally investigate or prosecute any alcohol or drug abuse patient.[facility] HospitalIn the event this information is protected by the Federal Confidentiality of Alcohol and Drug Abuse Patient Records regulations: The Federal rules restrict any use of the information to criminally investigate or prosecute any alcohol or drug abuse patient.[facility] HospitalIn the event this information is protected by the Federal Confidentiality of Alcohol and Drug Abuse Patient Records regulations: The Federal rules restrict any use of the information to criminally investigate or prosecute any alcohol or drug abuse patient.[facility] HospitalIn the event this information is protected by the Federal Confidentiality of Alcohol and Drug Abuse Patient Records regulations: The Federal rules restrict any use of the information to criminally investigate or prosecute any alcohol or drug abuse patient.[facility] Care Teams (unrecognized sec tion and [...] 2024 Team Status: Active Member Role Status Riccardo Howard DO Primary Care Provider Active Start: May 05, 2024 David Mcfadden PA-C Attending Provider Active S tart: May 05, 2024 Team Status: Active Member Role Status Riccardo Howard DO Primary Care Provider Active Start: May 15, 2024 Keith Parks MD Attending Provider Active Start: May 15, 2024 Team Status: Inactive Member Role Status Dates Broderick Howard DO Primary Care Provider Active Start: May 30, 2024 End: May 30, 2024 David Mcfadden PA-C Attending Provider Active S tart: May 30, 2024 End: May 30, 2024 Team Status: Active Member Role Status Riccardo Howard DO Primary Care Provider Active Start: June 05, 2024 Keith Parks MD Attending Provider Active Start: June 05, 2024 Team Status: Inactive Member Role Status Riccardo Howard DO Primary Care Provider Active Start: June 08, 2024 End: June 08, 2024 Katina Ordoñez MD Attending Provider Active Start : June 08, 2024 End: June 08, 2024 Team Status: Active Member Role Status Riccardo Howard DO Primary Care Provide r, Attending Provider Active Start: March 03, 2024 Team Status: Inactive Member Role Status Riccardo Howard DO Primary Care Provide r, Attending Provider Active Start: March 09, 2024 End: March 09, 2024 Marketing Content Coordinator Relationship Specialty Start Date End Date Broderick Howard DO [address] [place] [address] PCP - General Internal Medicine 09/21/18 Kitty Valente MD [address] [place] [address] Primary Staff Physician Cardiology 01/31/19 Marketing Content Coordinator Relationship Specialty Start Date End Date Broderick Howard, DO [address] [facility] [address] PCP - General Internal Medicine 09/21/18 Kitty Valente MD [address] [place] [address] Primary Staff Physician Cardiology 01/31/19 Marketing Content Coordinator Relationship Specialty Start Date End Date Broderick Howard, DO [address] [facility] [address] PCP - General Internal Medicine 09/21/18 Kitty Valente MD [address] [place] [address] Primary Staff Physician Cardiology 01/31/19 Marketing Content Coordinator Relationship Specialty Start Date End Date Broderick Howard, DO [address] [facility] [place] [address] PCP - General Internal Medicine 09/21/18 Kitty Valente MD [address] [place] [address] Primary Staff Physician Cardiology 01/31/19 Marketing Content Coordinator Relationship Specialty Start Date End Date Broderick Howard, DO [address] [facility] [place] [address] PCP - General Internal Medicine 09/21/18 Kitty Valente MD [address] [place] [address] Primary Staff Physician Cardiology 01/31/19 Team Status: Inactive Member Role Status Dates Broderick Howard DO Primary Care Provider, Attending Pr ovider Active Marketing Content Coordinator Relationship Specialty Start Date End Date Broderick Howard, [address] [facility] [address] PCP - General Internal Medicine 09/21/18 Kitty Valente MD [address] [place] [address] Primary Staff Physician Cardiology 01/31/19 Team Status: Inactive Member Role Status Riccardo Howard DO Primary Care Provider Active Niki Weeks MD Attending Provider Active Marketing Content Coordinator Relationship Specialty Start Date End Date Broderick Howard DO [address] [place] [address] PCP - General Internal Medicine 09/21/18 Kitty Valente MD [address] [place] [address] Primary Staff Physician Cardiology 01/31/19 Marketing Content Coordinator Relationship Specialty Start Date End Date Broderick Howard DO [address] [place] [id number] PCP - General Internal Medicine 09/21/18 Kitty Valente MD [address] [place] [address] Primary Staff Physician Cardiology 01/31/19 Marketing Content Coordinator Relationship Specialty Start Date End Date Broderick Howard DO [address] [place] [address] PCP - General Internal Medicine 09/21/18 Kitty Valente MD [address] [place] [address] Primary Staff Physician Cardiology 01/31/19 Marketing Content Coordinator Relationship Specialty Start Date End Date Broderick Howard DO [address] [place] [address] PCP - General Internal Medicine 09/21/18 Kitty Valente MD [address] [place] [address] Primary Staff Physician Cardiology 01/31/19 Marketing Content Coordinator Relationship Specialty Start Date End Date Broderick Howard DO [address] [place] [address] PCP - General Internal Medicine 09/21/18 Kitty Valente MD [address] [facility] [address] Primary Staff Physician Cardiology 01/31/19 Team Status: Inactive Member Role Status Dates Broderick Howard DO Attending Provider Active Sta rt: November 24, 2023 End: November 24, 2023 Team Status: Inactive Member Role Status Dates Broderick Howard DO Primary Care Provide r, Attending Provider Active Start: February 09, 2024 End: February 09, 2024 Marketing Content Coordinator Relationship Specialty Start Date End Date Broderick Howard DO [address] [place] [address] PCP - General Internal Medicine 09/21/18 Kitty Valente MD [address] [place] [address] Primary Staff Physician Cardiology 01/31/19 Team Status: Active Member Role Status Dates Broderick Howard DO Primary Care Provide r, Attending Provider Active Start: February 10, 2024 Team Status: Active Member Role Status Dates Broderick Howard DO Primary Care Provider Active Start: February 15, 2024 HERSON Golden Attending Provider Active St art: February 15, 2024 Marketing Content Coordinator Relationship Specialty Start Date End Date Broderick Howard DO [address] [place] [id number] PCP - General Internal Medicine 09/21/18 Kitty Valente MD [address] [facility] [place] [address] Primary Staff Physician Cardiology 01/31/19 Marketing Content Coordinator Relationship Specialty Start Date End Date Broderick Howard DO [address] [place] [address] PCP - General Internal Medicine 09/21/18 Kitty Valente MD [address] [place] [address] Primary Staff Physician Cardiology 01/31/19 Team Status: Inactive Member Role Status Dates Broderick Howard DO Primary Care Provide r, Attending Provider Active Start: June 27, 2024 End: June 27, 2024 Marketing Content Coordinator Relationship Specialty Start Date End Date Broderick Howard DO [address] [place] [address] PCP - General Internal Medicine 09/21/18 Kitty Valente MD [address] [place] [address] Primary Staff Physician Cardiology 01/31/19 Team Status: Active Member Role Status Dates Broderick Howard DO Primary Care Provider Active Start: June 29, 2024 Alejandro Villar Attending Provider Active Start: Patricia villaseñor 2023 Team Status: Inactive Member Role Status Dates Broderick Howard DO Primary Care Provide r, Attending Provider Active Start: July 05, 2024 End: July 05, 2024 Team Status: Active Member Role Status Dates Broderick Howard DO Primary Care Provide r, Attending Provider Active Start: July 05, 2024 INFORMATION SOURCE (unrecogn ized section and content) DATE CREATED AUTHOR 07/24/2022 [facility] DATE CREATED AUTHOR AUTHOR'S ORGANIZ ATION 04/23/2023 [facility] DATE CREATED AUTHOR AUTHOR'S ORGANIZ ATION 06/11/2023 [facility] DATE CREATED AUTHOR AUTHOR'S ORGANIZ ATION 09/14/2023 [facility] DATE CREATED AUTHOR AUTHOR'S ORGANIZ ATION 06/10/2024 [facility] DATE CREATED AUTHOR AUTHOR'S ORGANIZ ATION 06/12/2024 [facility] DATE CREATED AUTHOR AUTHOR'S ORGANIZ ATION 07/04/2024 [facility] DATE CREATED AUTHOR AUTHOR'S ORGANIZ ATION 07/12/2024 [facility] Goals (unrecognized section and content) Goals may [...] BE BASED ON THE PRIMARY CLINICAL RECORDS. [facility]. provides no warranty or guarantee of the accuracy or completeness of information in this document.
[2024-08-28 10:10] LABS: Creatinine Urine Random 137.09 mg/dL (20.00-300.00); Protein Creatinine Ratio Urine 0.12; Total Protein Urine Random 16.2 mg/dL (<=11.9)
[2024-08-28 10:18] LABS: Albumin Level 3.3 g/dL (3.4-5.0); Anion Gap 16.2; BUN Creatinine Ratio 12.6; Calcium 8.6 mg/dL (8.5-10.1); Carbon Dioxide 21.8 mmol/L (21.0-32.0); Chloride 108 mmol/L (98-107); Estimated GFR (African America 31 (>=60 mL/min/1.73m^2); Estimated GFR (Non-African Ame 26 (>=60 mL/min/1.73m^2); Glucose 135 mg/dL (74-106); Sodium 142 mmol/L (136-145)
[2024-08-28 10:23] LABS: Hematocrit 37.4 % (36.0-48.0); Hemoglobin 11.8 g/dL (12.0-16.0); Mean Corpuscular HGB Conc 31.6 g/dL (29.9-35.2); Mean Corpuscular Hemoglobin 31.1 pg (26.7-34.0); Mean Corpuscular Volume 98.4 fL (81.0-99.0); Mean Platelet Volume 9.5 fL (9.5-13.5); Platelet Count 219 10^3/uL (150-450); White Blood Count 5.2 10^3/uL (4.0-11.0)
[2024-08-28 10:38] LABS: Bilirubin Urine NEGATIVE (NEGATIVE); Blood Urine NEGATIVE (NEGATIVE); Clarity Urine CLEAR (CLEAR); Color Urine YELLOW (YELLOW); Glucose Urine UA NEGATIVE (NEGATIVE); Ketones Urine NEGATIVE (NEGATIVE); Leukocyte Esterase Urine NEGATIVE (NEGATIVE); Nitrite Urine NEGATIVE (NEGATIVE); Protein Urine NEGATIVE (NEG/TRACE); Specific Gravity Urine 1.025 (1.005-1.025); Urobilinogen Urine 0.2 EU/dL (0.2-1.0); pH Urine 5.5 (5.0-9.0)
[2024-08-28 10:49] LABS: Bacteria Urine NONE SEEN #/HPF (NONE SEEN); Cast Seen? NONE SEEN #/LPF (NONE SEEN); Crystals Seen? None Seen #/HPF (None Seen); Mucus Urine NONE SEEN (NONE SEEN); RBC Urine NONE SEEN #/HPF (0-2); Squamous Epithelial Cell Urine RARE #/LPF (NONE/RARE); WBC Urine 0-2 #/HPF (NONE SEEN)
[2024-08-28 11:03] LABS: Percent Iron Saturation 14.3 %
[2024-08-29 12:09] LABS: PTH, Intact 194 pg/mL (15-65)
== END 2024-08-28 09:24 | disposition home or self-care (01) ==
LOC: LAB 09:26
PROVIDERS: PCP Internal Medicine; Visit Provider Internal Medicine
DX: I12.9 Hypertensive chronic kidney disease with stage 1 through stage 4 chronic kidney disease, or unspecified chronic kidney disease (principal); N18.9 Chronic kidney disease, unspecified; C25.9 Malignant neoplasm of pancreas, unspecified; E55.9 Vitamin D deficiency, unspecified; D63.1 Anemia in chronic kidney disease; D72.819 Decreased white blood cell count, unspecified
CPT/HCPCS: 36415; 80069; 81001; 82306; 82570; 82728; 83540; 83550; 83735; 83970; 84156; 84550; 85027

== ENCOUNTER 2024-08-30 17:11 | Outpatient (OUT) | payer OTHER, SELFPAY ==
--- OUTSIDE RECORDS SUMMARY | 2024-08-30 17:22 | XMS_ITS | CCD ---
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 Name Role Phone Bertram Sanders Unavailable Broderick [...] Unavailable Ball, DO Broderick Primary Care Provider [phone] Lee, DO Villafana Attending Provider Niki Weeks Unavailable MD Niki Weeks Attending Provider Pascual Vidal MD, Kitty Unavailable Un available MIRIAN BELL Attending Unavailable BRODERICK HOWARD Primary Care Unavailable LEE, BRODERICK Quinteros Primary Care Unavailable Broderick Howard DO Primary Care Provider Lee, DO Villafana Primary Care Provider Lee, DO Villafana Attending Provider WILIAN Mcfadden Attending Provider Lee, DO Villafana Primary Care Provider Lee, DO Villafana Attending Provider [phone] Kasey PAUL, Keith Barron Attending Unavailable Kasey [...] Care Unavailable Ball, DO Broderick Attending Provider Blades, Niki A Admitting Unavailable Ball, Broderick [...] Dexamethasone; Translations: [DEXAMETHASONE] Drug Allergy 10-03-20 15 [facility] (20 sources) pregabalin; Translations: [PREGABALIN] Drug Allergy 08-24-20 13 [facility] (20 sources) rifAXIMin Drug Allergy 02-09-20 24 [facility] (1 source) Dexamethasone Drug Allergy [facility] (1 source) pregabalin Drug Allergy 11-15-19 08 [facility] (15 sources) Dexamethasone Drug Allergy 02-08-20 24 Unknown, Unknown Reaction [facility] (8 sources) Allergies Reconciled Propensity to adverse reactions Unknown Five minutes Other (8 sources) patient allergy list reviewed by nurse or physicia Propensity to adverse reactions 04-13-20 Comment:Done Five minutes Other (1 source) Dexamethasone Drug Allergy 01-06-20 21 [facility] (1 source) pregabalin Drug Allergy 01-06-20 21 [facility] Medications Current Medications Medication [...] on above: Take 1 capsule by mo [facility] once daily. 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 (current) drug therapy] Episodic Other aftercare (20 sources) Long-term current use of anticoagulant; Translations: [lpn (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 of anticoagulants] Onset: 4 02-08-2024 Episodic Other aftercare (5 sources) Encounter for therapeutic drug level monitoring; Translations: [ENC THERAPEUTC DRUG LEVL MONITORING] Onset: 3 Episodic Other aftercare (1 source) nursing home (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 of anticoagulants; Translations: [LONGTERM CURRNT USE ANTICOAGULANTS] Onset: 3 Episodic Other aftercare (8 sources) Long-term current use of drug therapy; Translations: [Other armored car messenger (current) drug therapy] Episodic Other aftercare (1 source) Drug therapy finding; Translations: [Other armored car messenger (current) drug therapy] 02-08-2024 Episodic Other and [...] Other aftercare (15 sources) Anticoagulant effect; Translations: [nursing home (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 of anticoagulants] Onset: 05-14-2015 05-14-2015 Episodic Other aftercare (1 source) Other armored car messenger (current) drug therapy; Translations: [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0 [facility] Hemoglobin [Mass/volume] in Bloodon 07-05-2024 Hemoglobin (Bld) [Mass/Vol] 11.9 g/dL Low 12.0-16.0 [facility] Iron binding capacity [Mass/ volume] in Serum or Plasmaon 07-05-2024 Iron binding capacity [Mass/Vol] 344.0 ug/dL 250.0-450. 0 [facility] Iron saturation [Mass Fracti on] in Serum or Plasmaon 07-05-2024 Iron saturation [Mass fraction] 18.9 % [facility] Maxx 07-05-2024 L Specimen: [id number] Received: 07/10/24 Status: SHARON Req Num: [id number] Spec Type: Impression Subm Dr: Broderick Howard DO Tissues: PATHPER Procedures: PATHREVIEW Age/ Patient Sex Location Account Attending Physician RodrigezCassi 74/F LABELL [id number] Broderick Howard DO SPEC NUM: [id number] RECD: 07/10/24 STATUS: SHARON RAFAELA NUM: [id number] GRACIA: 07/05/[address]: Broderick Howard DO ENTERED: 07/10/[address] [facility] [address]: Anthony,Lab SPEC TYPE: Impression DEPT: ODALYS Knight ENTERED BY: [id number] RECV BY: [id number] ORDERED: PATHREVIEW ORDERED: PATHREVIEW Pathologist Review Abnormal [...] of adrenocort icosteroids requiring clinical correlation CPT: 30194 Specimen: [id number] Received: 07/10/24 Status: SHARON Russo Num: [id number] Spec Type: Impression Subm Dr: Broderick Howard DO Tissues: PATHPER Procedures: PATHREVIEW Patient: Cassi Rodrigez [id number] (Continued) Signed (signature on file) Abel-Jairo Felipe MD 07/10/241756 Normal [facility] Laboratory - Chemistry and C hemistry - challengeon 07-05-2024 Cobalamin (Vitamin B12) [Mass/Vol] 400.0 pg/mL 193.0-986. 0 [facility] Ferritin [Mass/Vol] 24.0 ng/mL 8.0-252.0 [facility] Iron [Mass/Vol] 65.0 ug/dL 50.0-170.0 [facility] Laboratory - Hematology and Cell countson 07-05-2024 Immature granulocytes/100 WBC (Bld) 0.6 % High 0.0-0.5 [facility] Leukocytes [#/volume] correc tanesha for nucleated erythrocytes in Blood by Automated counon 07-05-2024 WBC corrected for nucl RBC Auto (Bld) [#/Vol] 5.4 10 3/uL 4.0-11.0 [facility] Lymphocytes Auto (Bld) [#/Vo l]on 07-05-2024 Lymphocytes (Bld) [#/Vol] 0.8 10 3/uL Low 1.2-3.8 [facility] Lymphocytes/100 WBC Auto (Bl d)on 07-05-2024 Lymphocytes/100 WBC (Bld) 14.4 % Low 20.5-60.0 [facility] MCH Auto (RBC) [Entitic mass ]on 07-05-2024 MCH (RBC) [Entitic mass] 30.8 pg 26.7-34.0 [facility] MCHC Auto (RBC) [Mass/Vol]on 07-05-2024 MCHC (RBC) [Mass/Vol] 32.6 g/dL 29.9-35.2 [facility] MCV Auto (RBC) [Entitic vol] on 07-05-2024 MCV (RBC) [Entitic vol] 94.6 fL 81.0-99.0 [facility] Monocytes Auto (Bld) [#/Vol] on 07-05-2024 Monocytes (Bld) [#/Vol] 0.4 10 3/uL 0.3-0.8 [facility] Monocytes/100 WBC Auto (Bld) on 07-05-2024 Monocytes/100 WBC (Bld) 6.5 % 1.7-12.0 [facility] Neutrophils Auto (Bld) [#/Vo l]on 07-05-2024 Neutrophils (Bld) [#/Vol] 4.0 10 3/uL 1.4-6.5 [facility] Neutrophils/100 WBC Auto (Bl d)on 07-05-2024 Neutrophils/100 WBC (Bld) 73.6 % 43.0-75.0 [facility] No Panel Informationon 07-05 Eosinophils # (Auto) 0.2 10 3/uL 0.0-0.7 [facility] Folate 10.80 ng/mL 8.60-58.90 [facility] Immature Granulocyte # (Auto) 0.03 10 3/uL 0.00-0.03 [facility] Platelet mean volume Auto (B ld) [Entitic vol]on 07-05-2024 Platelet mean volume (Bld) [Entitic vol] 9.4 fL Low 9.5-13.5 [facility] Platelets Auto (Bld) [#/Vol] on 07-05-2024 Platelets (Bld) [#/Vol] 180 10 3/uL 150-450 [facility] RBC Auto (Bld) [#/Vol]on RBC (Bld) [#/Vol] 3.86 10 6/uL Low 4.20-5.40 [facility] CNOVon 06-29-2024 CNOV Office Visit (NEEPFV ) -- CASSI RODRIGEZ ([id number]) 1950 F Date Time Provider Department 06/29/24 1:00 PM ALEJANDRO VILLAR NEEPFV During your visit today, we recorded the following information about you: Pulse Blood pressure Weight Height 85/minute 133/72 85.4 kg 1.575 m Alejandro Villar MD, PhD 07/03/2024 12:56 PM Signed [facility] Patient Name: Cassi Rodrigez Date of : 1950 ESTABLISHED EPILEPSY CLINIC NOTE 06/29/2024 1:00 PM Reason for Visit: Epilepsy Clinical Summary: Ms. Rodrigez is a 74 year old female seen in [facility]. 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 Normal [facility] Comprehensive metabolic 2000 panelon 06-29-2024 Albumin [Mass/Vol] 4.3 g/dL 3.9 - 4.9 g/dL [facility] ALP [Catalytic activity/Vol] 170 U/L High 34 - 123 U/L [facility] ALT [Catalytic activity/Vol] 28 U/L 7 - 38 U/L [facility] Anion gap [Moles/Vol] 8 mmol/L 8 - 15 mmol/L [facility] AST [Catalytic activity/Vol] 22 U/L 13 - 35 U/L [facility] Bilirubin [Mass/Vol] 0.4 mg/dL 0.2 - 1 .3 mg/dL [facility] Calcium [Mass/Vol] 8.8 mg/dL 8.5 - 10. 2 mg/dL [facility] Chloride [Moles/Vol] 109 mmol/L High 98 - 10 7 mmol/L [facility] CO2 [Moles/Vol] 24 mmol/L 22 - 30 mmol/L [facility] Creatinine [Mass/Vol] 1.73 mg/dL High 0.58 - 0.96 mg/dL [facility] GFR/1.73 sq M.predicted among non-blacks MDRD (S/P/Bld) [Vol rate/Area] 31 mL/min/{1.73_m2} Low - PINF [facility] Comment on above: Estimated Glomerular Filtration [...] 111 mg/dL High 74 - 99 mg/dL [facility] Comment on above: The [place] Diabete s Association (ADA) provides guidance for [...] Standards of Medical Care in Diabetes 2016, [place] Diabetes Association. Diabetes Care. 2016.39(Suppl 1). Interpretation and review of laboratory results Abnormal [facility] Potassium [Moles/Vol] 5.1 mmol/L 3.7 - 5.1 mmol/L [facility] Protein [Mass/Vol] 7.0 g/dL 6.3 - 8.0 g/dL [facility] Sodium [Moles/Vol] 141 mmol/L 136 - 144 mmol/L [facility] Urea nitrogen [Mass/Vol] 34 mg/dL High 7 - 21 mg/dL [facility] Albumin [Mass/Vol] 4.3 g/dL Normal 3.9-4.9 [facility] Comment on above: Order Comment: Speci men Type: BLOOD SPECIMEN Ordering Facility: [facility] Address: [address] [place] [address] Performed By: #### 2 4323-8 #### [facility] CLIA [id number] [address] [place] [address] [place] ALP [Catalytic activity/Vol] 170 U/L High 34-123 [facility] Comment on above: Order Comment: Speci men Type: BLOOD SPECIMEN Ordering Facility: [facility] Address: [address] [place] [address] Performed By: #### 2 4323-8 #### [facility] CLIA [id number] [address] [place] [address] [place] ALT [Catalytic activity/Vol] 28 U/L Normal 7-38 [facility] Comment on above: Order Comment: Speci men Type: BLOOD SPECIMEN Ordering Facility: [facility] Address: [address] [place] [address] Performed By: #### 2 4323-8 #### [facility] CLIA [id number] [address] [place] [address] [place] Anion gap [Moles/Vol] 8 mmol/L Normal 8-15 [facility] Comment on above: Order Comment: Speci men Type: BLOOD SPECIMEN Ordering Facility: [facility] Address: [address] [place] [address] Performed By: #### 2 4323-8 #### [facility] CLIA [id number] [address] [place] [address] [place] AST [Catalytic activity/Vol] 22 U/L Normal 13-35 [facility] Comment on above: Order Comment: Speci men Type: BLOOD SPECIMEN Ordering Facility: [facility] Address: [address] [place] [address] Performed By: #### 2 4323-8 #### [facility] CLIA [id number] [address] [place] [address] [place] Bilirubin [Mass/Vol] 0.4 mg/dL Normal 0.2-1.3 [facility] Comment on above: Order Comment: Speci men Type: BLOOD SPECIMEN Ordering Facility: [facility] Address: [address] [place] [address] Performed By: #### 2 4323-8 #### [facility] CLIA [id number] [address] [place] [address] [place] Calcium [Mass/Vol] 8.8 mg/dL Normal 8.5-10.2 [facility] Comment on above: Order Comment: Speci men Type: BLOOD SPECIMEN Ordering Facility: [facility] Address: [address] [place] [address] Performed By: #### 2 4323-8 #### [facility] CLIA [id number] [address] [place] [address] [place] Chloride [Moles/Vol] 109 mmol/L High 98-107 [facility] Comment on above: Order Comment: Speci men Type: BLOOD SPECIMEN Ordering Facility: [facility] Address: [address] [place] [address] Performed By: #### 2 4323-8 #### [facility] CLIA [id number] [address] [place] [address] [place] CO2 [Moles/Vol] 24 mmol/L Normal 22-30 [facility] Comment on above: Order Comment: Speci men Type: BLOOD SPECIMEN Ordering Facility: [facility] Address: [address] [place] [address] Performed By: #### 2 4323-8 #### [facility] CLIA [id number] [address] [place] [address] [place] Creatinine [Mass/Vol] 1.73 mg/dL High 0.58-0.96 [facility] Comment on above: Order Comment: Speci men Type: BLOOD SPECIMEN Ordering Facility: [facility] Address: [address] [place] [address] Performed By: #### 2 4323-8 #### [facility] CLIA [id number] [place] [address] [place] [facility] Creatinine and Glomerular filtration rate.predicted panel (S/P/Bld) 31 mL/min/1.73m??? Low >=60 [facility] Comment on above: Order Comment: Warren almazan Type: BLOOD SPECIMEN Ordering Facility: [facility] Address: [address] [place] [address] Result Comment: Radhika mated Glomerular Filtration Rate [...] GFR. Performed By: #### 2 4323-8 #### [facility] CLIA [id number] [address] [place] [address] [place] Glucose [Mass/Vol] 111 mg/dL High 74-99 [facility] Comment on above: Order Comment: Warren almazan Type: BLOOD SPECIMEN Ordering Facility: [facility] Address: [address] [place] [address] Result Comment: The [place] Diabetes Association (ADA) provides guidance for cutoff [...] Standards of Medical Care in Diabetes 2016, [place] Diabetes Association. Diabetes Care. 2016.39(Suppl 1). Performed By: #### 2 4323-8 #### [facility] CLIA [id number] [place] [address] [place] Potassium [Moles/Vol] 5.1 mmol/L Normal 3.7-5.1 [facility] Comment on above: Order Comment: Speci men Type: BLOOD SPECIMEN Ordering Facility: [facility] Address: [address] [place] [address] Performed By: #### 2 4323-8 #### [facility] CLIA [id number] [place] [address] [place] Protein [Mass/Vol] 7.0 g/dL Normal 6.3-8.0 [facility] Comment on above: Order Comment: Speci men Type: BLOOD SPECIMEN Ordering Facility: [facility] Address: [address] [place] [address] Performed By: #### 2 4323-8 #### [facility] CLIA [id number] [address] [place] [address] [place] Sodium [Moles/Vol] 141 mmol/L Normal 136-144 [facility] Comment on above: Order Comment: Speci men Type: BLOOD SPECIMEN Ordering Facility: [facility] Address: [address] [place] [address] Performed By: #### 2 4323-8 #### [facility] CLIA [id number] [address] [place] [address] [place] Urea nitrogen [Mass/Vol] 34 mg/dL High 7-21 [facility] Comment on above: Order Comment: Speci men Type: BLOOD SPECIMEN Ordering Facility: [facility] Address: [address] [place] [address] Performed By: #### 2 4323-8 #### [facility] CLIA [id number] [address] [place] [address] [place] LEVETIRACETAMon 06-29-2024 levETIRAcetam [Mass/Vol] 59.9 ug/mL High 12.0 - 46.0 ug/mL [facility] Comment on above: This test is not alvni table for patients receiving treatment with the drug brivaracetam (Briviact). The drug causes an interference that may lead to falsely elevated levetiracetam results. Reference ranges and high/low indicator flags are provided as general guidelines only. The treating physician must determine appropriate target levels/dosing based on the specific clinical situation. This test was developed and its performance characteristics determined by [facility]'s [facility] Pathology and Laboratory Medicine [place] ([facility] It has not been cleared or approved by the FDA. -[facility] is regulated under CLIA as qualified to perform high-complexity testing. This test is used for clinical purposes. It should not be regarded as investigational or for research. Laboratory - Chemistry and C hemistry - challengeon 06-29-2024 Albumin [Mass/Vol] 4.3 g/dL 3.9-4.9 [facility] ALP [Catalytic activity/Vol] 170 U/L High 34-123 [facility] ALT [Catalytic activity/Vol] 28 U/L 7-38 [facility] AST [Catalytic activity/Vol] 22 U/L 13-35 [facility] Bilirubin [Mass/Vol] 0.4 mg/dL 0.2-1.3 [facility] Calcium [Mass/Vol] 8.8 mg/dL 8.5-10.2 [facility] Chloride [Moles/Vol] 109 mmol/L High 98-107 [facility] CO2 [Moles/Vol] 24 mmol/L 22-30 [facility] Creatinine [Mass/Vol] 1.73 mg/dL High 0.58-0.96 [facility] Glucose [Mass/Vol] 111 mg/dL High 74-99 [facility] Comment on above: The [place] Diabete s Association (ADA) provides guidance for [...] Standards of Medical Care in Diabetes 2016, [place] Diabetes Association. Diabetes Care. 2016.39(Suppl 1). Potassium [Moles/Vol] 5.1 mmol/L 3.7-5.1 [facility] Sodium [Moles/Vol] 141 mmol/L 136-144 [facility] Urea nitrogen [Mass/Vol] 34 mg/dL High 7-21 [facility] No Panel Informationon 06-29 Estimated GFR (CKD-EPI) 31 mL/min/1.73m??? Low >=60 [facility] Comment on above: Estimated Glomerular Filtration Rate [...] Levetiracetam (Keppra) Level 59.9 ug/mL High 12.0-46.0 [facility] Comment on above: This test is not [...] developed and its performance characteristics determined by [facility] Path[facility] Laboratory [facility] [place] ([facility]). It has not been cleared or approved by the FDA. RT-[facility] is regulated under CLIA as qualified to perform high-complexity testing. This test is used for clinical purposes. It should not be regarded as investigational or for research. Protein [Mass/volume] in Ser um or Plasmaon 06-29-2024 Protein [Mass/Vol] 7.0 g/dL 6.3-8.0 [facility] Serum or plasma anion gap de terminationon 06-29-2024 Anion gap [Moles/Vol] 8 mmol/L 8-15 [facility] levETIRAcetam SerPl-mCncon 0 06-29-2024 levETIRAcetam [Mass/Vol] 59.9 ug/mL High 12.0-46.0 [facility] Comment on above: Order Comment: Speci men Type: BLOOD SPECIMEN [facility]ing Facility: [facility] Address: [address] [place] [address] Result Comment: This test is not suitable [...] developed and its performance characteristics determined by [facility]'s [facility] Pathology and Laboratory [facility] [place] ([facility]). It has not been cleared or approved by the FDA. -[facility] is regulated under CLIA as qualified to perform high-complexity testing. This test is used for clinical purposes. It should not be regarded as investigational or for research. Performed By: #### 3 0471-7 #### [facility] CLIA [id number] [address] [place], [place] [address] [address] [place] levETIRAcetam [Mass/Vol]on 0 06-29-2024 Interpretation and review of laboratory results Abnormal [facility] INR in Platelet poor plasma by Coagulation assayon 06-05-2024 INR Coag (PPP) [Relative time] 2.29 {INR} [facility] Comment on above: DESIRED INR:2.0-3.0 CONDITIONS NOT LISTED BELOW2.5-3.5 FOR PROSTHETIC HEART VALVE REPLACEMENT2.5-3.5 RECURRENT THROMBOSIS Prothrombin time (PT)on 05-16 PT Coag (PPP) [Time] 22.4 s High 9.0-11.6 [facility] ISTAT XRay CREon 05-30-2024 ISTAT GFR 29.200 Normal [facility] Comment on above: Result Comment: PERF ORMED BY: [facility] [address] [place] [address] PATHOLOGIST GASOLINE TESTER LELE FALK M.D. Performed By: #### I SCRE #### [facility] [address] [place] [id number] [facility] MR lumbar spine wo conon MR lumbar spine wo con [facility] Main [place] [address] [id number] MRI Report Signed Patient: Cassi Rodrigez MR#: [id number] 8 : 1950 Acct:[id number] Age/Sex: 74 / F ADM Date: 05/30/24 Loc: MR [facility]: David Mcfadden PA-C Copies to: [...] Rico John M.D.05/30/2024 10:27 AM Dictation Location: [place] [address] Transcribed By: [facility] 05/30/24 1027 Dictated By: Rico John DO 05/30/24 1006 Signed By: 05/30/24 1027 Normal [facility] No Panel InformationOrdered By: David Mcfadden on 05-30-2024 Bedside Estimated GFR (eGFR) 29.200 [facility] Whole blood creatinine measu rementOrdered By: David Mcfadden on 05-30-2024 Creatinine [Mass/Vol] 1.8 mg/dL High 0.6-1.3 [facility] Comment on above: ER/ESD physician is notified/shown all ISTAT results.Critical values may be confirmed by laboratory testing ifdeemed necessary by ER attending doctor. Result Comment: ER/E SD physician is notified/shown all ISTAT results. Critical values may be confirmed by laboratory testing if deemed necessary by ER attending doctor. Performed By: #### I SCRE #### [address] CNOVon 05-23-2024 CNOV Office Visit (NEADFV ) -- CASSI RODRIGEZ ([id number]) 1950 F Date Time Provider Department 05/23/24 [...] Injection Sites Muscle Fixed Site/Fixed Dose Bilat Jewelry Estimator 20 U divided in 2 sites Procerus [...] Total Units wasted: 0 Randa Reilly MD [facility] Neurological [place] Tomasa Farfan RN 05/23/2024 11:55 AM Signed Patient name and confirmed. Patient states she would like to receive Botox treatment today. 2 vials of Botox A (100 units in each) reconstituted with 2.2 cc of normal saline in each vial. Botox drawn up into four, 1 cc syringes. Each syringe containing 50 units of Botox. Assisted by: Diann VRAELA Botox, 2 vials: Lot # [id number] Exp Lot # [id number] Exp Botox handed to Dr. Reilly to administer and verified order. Referring Provider: RANDA REILLY [[id number]] Allergies As of Date: 05/23/2024 Noted Allergy [...] of nor (more content not included)... Normal [facility] INR in Platelet poor plasma by Coagulation assayon 05-15-2024 INR Coag (PPP) [Relative time] 2.71 {INR} [facility] Comment on above: DESIRED INR:2.0-3.0 CONDITIONS NOT LISTED BELOW2.5-3.5 FOR PROSTHETIC HEART VALVE REPLACEMENT2.5-3.5 RECURRENT THROMBOSIS Prothrombin time (PT)on PT Coag (PPP) [Time] 26.0 s High 9.0-11.6 [facility] Basophils Auto (Bld) [#/Vol] on 05-05-2024 Basophils (Bld) [#/Vol] 0.0 10 3/uL 0.0-0.1 [facility] Basophils/100 WBC Auto (Bld) on 05-05-2024 Basophils/100 WBC (Bld) 1.1 % 0.2-2.0 [facility] Eosinophils/100 WBC Auto (Bl d)on 05-05-2024 Eosinophils/100 WBC (Bld) 6.9 % 0.9-7.0 [facility] Erythrocyte distribution wid th Auto (RBC) [Ratio]on 05-05-2024 Erythrocyte distribution width (RBC) [Ratio] 13.3 % 11.0-15.0 [facility] Estimated glomerular filtrat ion rate (GFR) non- Americanon 05-05-2024 GFR/1.73 sq M.predicted among non-blacks MDRD (S/P/Bld) [Vol rate/Area] 32 mL/min/{1.73_m2} Low >=60 [facility] Hematocrit Auto (Bld) [Volum e fraction]on 05-05-2024 Hematocrit (Bld) [Volume fraction] 35.5 % Low 36.0-48.0 [facility] Hemoglobin [Mass/volume] in Bloodon 05-05-2024 Hemoglobin (Bld) [Mass/Vol] 11.1 g/dL Low 12.0-16.0 [facility] Laboratory - Chemistry and C hemistry - challengeon 05-05-2024 Calcium [Mass/Vol] 8.4 mg/dL Low 8.5-10.1 [facility] Chloride [Moles/Vol] 108 mmol/L High 98-107 [facility] CO2 [Moles/Vol] 26.2 mmol/L 21.0-32.0 [facility] Creatinine [Mass/Vol] 1.60 mg/dL High 0.55-1.02 [facility] GFR/1.73 sq M.predicted MDRD (S/P/Bld) [Vol rate/Area] 38 mL/min/{1.73_m2} Low >=60 [facility] Glucose [Mass/Vol] 103 mg/dL 74-106 [facility] Potassium [Moles/Vol] 4.4 mmol/L 3.5-5.1 [facility] Sodium [Moles/Vol] 140 mmol/L 136-145 [facility] Urea nitrogen [Mass/Vol] 24.0 mg/dL High 7.0-18.0 [facility] Urea nitrogen/Creatinine [Mass ratio] 15.0 mg/mg [facility] Laboratory - Hematology and Cell countson 05-05-2024 ESR (Bld) [Velocity] 45 mm/h High <=30 [facility] Immature granulocytes/100 WBC (Bld) 0.0 % 0.0-0.5 [facility] Leukocytes [#/volume] correc tanesha for nucleated erythrocytes in Blood by Automated counon 05-05-2024 WBC corrected for nucl RBC Auto (Bld) [#/Vol] 3.8 10 3/uL Low 4.0-11.0 [facility] Lymphocytes Auto (Bld) [#/Vo l]on 05-05-2024 Lymphocytes (Bld) [#/Vol] 1.0 10 3/uL Low 1.2-3.8 [facility] Lymphocytes/100 WBC Auto (Bl d)on 05-05-2024 Lymphocytes/100 WBC (Bld) 27.1 % 20.5-60.0 [facility] MCH Auto (RBC) [Entitic mass ]on 05-05-2024 MCH (RBC) [Entitic mass] 28.8 pg 26.7-34.0 [facility] MCHC Auto (RBC) [Mass/Vol]on 05-05-2024 MCHC (RBC) [Mass/Vol] 31.3 g/dL 29.9-35.2 [facility] MCV Auto (RBC) [Entitic vol] on 05-05-2024 MCV (RBC) [Entitic vol] 92.2 fL 81.0-99.0 [facility] Monocytes Auto (Bld) [#/Vol] on 05-05-2024 Monocytes (Bld) [#/Vol] 0.3 10 3/uL 0.3-0.8 [facility] Monocytes/100 WBC Auto (Bld) on 05-05-2024 Monocytes/100 WBC (Bld) 8.2 % 1.7-12.0 [facility] Neutrophils Auto (Bld) [#/Vo l]on 05-05-2024 Neutrophils (Bld) [#/Vol] 2.1 10 3/uL 1.4-6.5 [facility] Neutrophils/100 WBC Auto (Bl d)on 05-05-2024 Neutrophils/100 WBC (Bld) 56.7 % 43.0-75.0 [facility] No Panel Informationon 05-05 C-Reactive Protein, Quantitative <0.50 mg/dL <=0.50 [facility] Eosinophils # (Auto) 0.3 10 3/uL 0.0-0.7 [facility] Immature Granulocyte # (Auto) 0.00 10 3/uL 0.00-0.03 [facility] Platelet mean volume Auto (B ld) [Entitic vol]on 05-05-2024 Platelet mean volume (Bld) [Entitic vol] 9.4 fL Low 9.5-13.5 [facility] Platelets Auto (Bld) [#/Vol] on 05-05-2024 Platelets (Bld) [#/Vol] 217 10 3/uL 150-450 [facility] RBC Auto (Bld) [#/Vol]on RBC (Bld) [#/Vol] 3.85 10 6/uL Low 4.20-5.40 [facility] Serum or plasma anion gap de terminationon 05-05-2024 Anion gap [Moles/Vol] 10.2 mmol/L [facility] MR lumbar spine wo/w conon 0 03-28-2024 MR lumbar spine wo/w con [facility] [address] MRI Report Signed Patient: Cassi Rodrigez MR#: [id number] : 1950 Acct:[id number] Age/Sex: 74 / F ADM Date: 03/28/24 Loc: Room: Type: [facility] Attending Dr: Broderick Howard DO Copies [...] Arnel Simon M.D.03/28/2024 12:17 PM Dictation Location: [place] [address] Transcribed By: [facility] 03/28/24 1217 Dictated By: Arnel Simon II, MD 03/28/24 1209 Signed By: 03/28/24 1217 Normal [facility] No Panel Informationon 03-15 BLANK _ [facility] Implant Date 05/22/2015 [facility] Model 5076 CapSureFix [facility] PACEMAKER REMOTE CHECKon AV Delay Adaptive Paced Minimum (ms) 180 ms [facility] AV Delay Adaptive Sensed Minimum (ms) 150 ms [facility] AV Delay Adaptive Status DISABLED [facility] Battery Voltage (volts) 2.92 V [facility] Godfrey RA Pacing Amplitude (volts) 1.5 V [facility] Godfrey RA Pacing Polarity BI [facility] Godfrey RA Pacing Pulse Width (ms) 0.4 ms [facility] Godfrey RA Sensing Amplitude (mvolts) 0.3 mV [facility] Godfrey RA Sensing Blanking Period (ms) 150 ms [facility] Godfrey RA Sensing Polarity BI [facility] Godfrey RA Sensing Refractory Period (ms) Auto [facility] Godfrey RV Pacing Amplitude (volts) 2 V [facility] Godfrey RV Pacing Polarity BI [facility] Godfrey RV Pacing Pulse Width (ms) 0.4 ms [facility] Godfrey RV Sensing Amplitude (mvolts) 0.9 mV [facility] Godfrey RV Sensing Blanking Period (ms) 200 ms [facility] Godfrey RV Sensing Polarity BI [facility] Hysteresis Rate (bpm) DISABLED [facility] Lead1 Jorge KELLER [facility] Lead2 Jorge KELLER [facility] Location RV [facility] Location RA [facility] Lower Rate (bpm) 60 {beats}/min [facility] Max Sensor Rate (bmp) 130 {beats}/min [facility] Model [id number] COBOS [facility] PM-Device Mfg MDT [facility] PM-Percent Pacing (A) 99.48 % [facility] PM-Percent Pacing (V) 0.27 % [facility] PM-PMT Intervention ENABLED [facility] PM-PVC Intervention ENABLED [facility] PM-Rate Modulation Acceleration Reaction 30 s [facility] PM-Rate Modulation ADL Rate (bpm) 100 {beats}/min [facility] PM-Rate Modulation Deceleration Exercise [facility] PM-Rate Modulation Threshold MediumLow [facility] RA Bipolar Impedance ohms 418 ohm [facility] RA Unipolar Impedance ohms 399 ohm [facility] RV Bipolar Impedance ohms 532 ohm [facility] RV Unipolar Impedance 494 ohm [facility] Serial Number [id number] [facility] Serial Number [id number] [facility] Serial Number [id number] [facility] Thresh RA Capture Amplitude (volts) 0.5 V [facility] Thresh RA Capture Duration (ms) 0.4 ms [facility] Thresh RA Sensing Amplitude (mvolts) 3.125 mV [facility] Thresh RV Capture Amplitude (volts) 0.875 V [facility] Thresh RV Capture Duration (ms) 0.4 ms [facility] Thresh RV Sensing Amplitude (mvolts) 11.875 mV [facility] Tracking Rate (bpm) 130 {beats}/min [facility] 03/15/2024 Formattin g of this note [...] CARDIAC DATA AND REPORT, Scanned Documents section. [facility] CNOVon 03-07-2024 CNOV Office Visit (NEADFV ) -- CASSI RODRIGEZ ([id number]) 1950 F Date Time Provider Department 03/07/24 9:00 AM RANDA REILLY NEADFV During your visit today, we recorded the following information about you: Pulse Blood pressure Weight Height 85/minute 133/72 84.5 kg 1.575 m Randa Reilly MD 03/07/2024 1:16 PM Signed PROGRESS NOTE- [facility] SERVICE DATE: March 07, 2024 Location: [facility] neurological [place] Participants: patient, and provider HPI: Here for [...] I spent at least 50% of the [id number]-[id number] time in counseling, explanation of diagnosis, planning of further management, and answering all questions. Randa Reilly MD [facility] Neurological [place] Referring Provider: LAUREN OTERO [[id number]] Allergies As of Date: 03/07/2024 Noted Allergy [...] sleep apnea) [G47.33] Order(s):CONSULT TO [facility] [[id number]] Order #: [id number]: 1 CONSULT TO SLEEP MEDICINE - ADULT [[id number]] Order #: [id number]: 1 FUTURE CONSULT TO [facility] [[id number]] Order #: [id number]: 1 FUTURE Prescriptions as of 03/07/2024 - [...] Noted Resolve (more content not included)... Normal [facility] Albumin [Mass/volume] in Ser um or Plasmaon 03-03-2024 Albumin [Mass/Vol] 3.5 g/dL 2.9-4.4 [facility] Basophils Auto (Bld) [#/Vol] on 03-03-2024 Basophils (Bld) [#/Vol] 0.0 10 3/uL 0.0-0.1 [facility] Basophils/100 WBC Auto (Bld) on 03-03-2024 Basophils/100 WBC (Bld) 0.7 % 0.2-2.0 [facility] Eosinophils/100 WBC Auto (Bl d)on 03-03-2024 Eosinophils/100 WBC (Bld) 10.8 % High 0.9-7.0 [facility] Erythrocyte distribution wid th Auto (RBC) [Ratio]on 03-03-2024 Erythrocyte distribution width (RBC) [Ratio] 13.5 % 11.0-15.0 [facility] Estimated glomerular filtrat ion rate (GFR) non- Americanon 03-03-2024 GFR/1.73 sq M.predicted among non-blacks MDRD (S/P/Bld) [Vol rate/Area] 34 mL/min/{1.73_m2} Low >=60 [facility] Globulin Calc (S) [Mass/Vol] on 03-03-2024 Globulin (S) [Mass/Vol] 3.6 g/dL [facility] Hematocrit Auto (Bld) [Volum e fraction]on 03-03-2024 Hematocrit (Bld) [Volume fraction] 38.8 % 36.0-48.0 [facility] Hemoglobin [Mass/volume] in Bloodon 03-03-2024 Hemoglobin (Bld) [Mass/Vol] 11.9 g/dL Low 12.0-16.0 [facility] IgA [Mass/volume] in Serum o r Plasmaon 03-03-2024 IgA [Mass/Vol] 265 mg/dL 64-422 [facility] IgG [Mass/volume] in Serum o r Plasmaon 03-03-2024 IgG [Mass/Vol] 911 mg/dL 586-1602 [facility] IgM [Mass/volume] in Serum o r Plasmaon 03-03-2024 IgM [Mass/Vol] 64 mg/dL 26-217 [facility] Immunoglobulin light chains. kappa.free [Mass/volume] in Serumon 03-03-2024 Immunoglobulin light chains.kappa.free (S) [Mass/Vol] 44.7 mg/L Abnormal 3.3-19.4 [facility] Immunoglobulin light chains. kappa.free/Immunoglobulin light chains.lambda.free [Yanelis 03-03-2024 Immunoglobulin light chains.kappa.free/Immun oglobulin light chains.lambda.free (S) [Mass ratio] 1.16 0.26-1.65 [facility] Comment on above: Performed at: [address] [id number] Director: Junaid Sawyer PhD, Phone: [phone] Immunoglobulin light chains. lambda.free [Mass/volume] in Serum or Plasmaon 03-03-2024 Immunoglobulin light chains.lambda.free [Mass/Vol] 38.7 mg/L Abnormal 5.7-26.3 [facility] Iron binding capacity [Mass/ volume] in Serum or Plasmaon 03-03-2024 Iron binding capacity [Mass/Vol] 338.0 ug/dL 250.0-450. 0 [facility] Iron saturation [Mass Fracti on] in Serum or Plasmaon 03-03-2024 Iron saturation [Mass fraction] 7.7 % [facility] Laboratory - Chemistry and C hemistry - challengeon 03-03-2024 Albumin [Mass/Vol] 3.3 g/dL Low 3.4-5.0 [facility] ALP [Catalytic activity/Vol] 155 U/L High 46-116 [facility] ALT [Catalytic activity/Vol] 21 U/L 14-59 [facility] AST [Catalytic activity/Vol] 25 U/L 15-37 [facility] Bilirubin [Mass/Vol] 0.4 mg/dL 0.2-1.0 [facility] Calcium [Mass/Vol] 9.0 mg/dL 8.5-10.1 [facility] Chloride [Moles/Vol] 106 mmol/L 98-107 [facility] CO2 [Moles/Vol] 21.4 mmol/L 21.0-32.0 [facility] Cobalamin (Vitamin B12) [Mass/Vol] 495.0 pg/mL 193.0-986. 0 [facility] Creatinine [Mass/Vol] 1.50 mg/dL High 0.55-1.02 [facility] Ferritin [Mass/Vol] 19.0 ng/mL 8.0-252.0 [facility] GFR/1.73 sq M.predicted MDRD (S/P/Bld) [Vol rate/Area] 41 mL/min/{1.73_m2} Low >=60 [facility] Glucose [Mass/Vol] 113 mg/dL High 74-106 [facility] Iron [Mass/Vol] 26.0 ug/dL Low 50.0-170.0 [facility] Potassium [Moles/Vol] 4.3 mmol/L 3.5-5.1 [facility] Protein [Mass/Vol] 6.9 g/dL 6.4-8.2 [facility] Sodium [Moles/Vol] 139 mmol/L 136-145 [facility] Urea nitrogen [Mass/Vol] 25.0 mg/dL High 7.0-18.0 [facility] Urea nitrogen/Creatinine [Mass ratio] 16.7 mg/mg [facility] Laboratory - Hematology and Cell countson 03-03-2024 Immature granulocytes/100 WBC (Bld) 0.0 % 0.0-0.5 [facility] Leukocytes [#/volume] correc tanesha for nucleated erythrocytes in Blood by Automated counon 03-03-2024 WBC corrected for nucl RBC Auto (Bld) [#/Vol] 2.8 10 3/uL Low 4.0-11.0 [facility] Lymphocytes Auto (Bld) [#/Vo l]on 03-03-2024 Lymphocytes (Bld) [#/Vol] 0.8 10 3/uL Low 1.2-3.8 [facility] Lymphocytes/100 WBC Auto (Bl d)on 03-03-2024 Lymphocytes/100 WBC (Bld) 27.6 % 20.5-60.0 [facility] MCH Auto (RBC) [Entitic mass ]on 03-03-2024 MCH (RBC) [Entitic mass] 28.8 pg 26.7-34.0 [facility] MCHC Auto (RBC) [Mass/Vol]on 03-03-2024 MCHC (RBC) [Mass/Vol] 30.7 g/dL 29.9-35.2 [facility] MCV Auto (RBC) [Entitic vol] on 03-03-2024 MCV (RBC) [Entitic vol] 93.9 fL 81.0-99.0 [facility] Monocytes Auto (Bld) [#/Vol] on 03-03-2024 Monocytes (Bld) [#/Vol] 0.3 10 3/uL 0.3-0.8 [facility] Monocytes/100 WBC Auto (Bld) on 03-03-2024 Monocytes/100 WBC (Bld) 9.7 % 1.7-12.0 [facility] Neutrophils Auto (Bld) [#/Vo l]on 03-03-2024 Neutrophils (Bld) [#/Vol] 1.4 10 3/uL 1.4-6.5 [facility] Neutrophils/100 WBC Auto (Bl d)on 03-03-2024 Neutrophils/100 WBC (Bld) 51.2 % 43.0-75.0 [facility] No Panel Informationon 03-03 Eosinophils # (Auto) 0.3 10 3/uL 0.0-0.7 [facility] Folate 9.50 ng/mL 8.60-58.90 [facility] Immature Granulocyte # (Auto) 0.00 10 3/uL 0.00-0.03 [facility] Protein Electrophoresis M-Miguel Not Observed g/dL Not Observed [facility] Protein Electrophoresis Note Comment . 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 Platelet mean volume Auto (B ld) [Entitic vol]on 03-03-2024 Platelet mean volume (Bld) [Entitic vol] 9.4 fL Low 9.5-13.5 [facility] Platelets Auto (Bld) [#/Vol] on 03-03-2024 Platelets (Bld) [#/Vol] 203 10 3/uL 150-450 [facility] Protein [Mass/volume] in Ser um or Plasmaon 03-03-2024 Protein [Mass/Vol] 6.2 g/dL 6.0-8.5 [facility] RBC Auto (Bld) [#/Vol]on RBC (Bld) [#/Vol] 4.13 10 6/uL Low 4.20-5.40 [facility] Serum globulin measurement ( mass/volume)on 03-03-2024 Globulin (S) [Mass/Vol] 2.7 g/dL 2.2-3.9 [facility] Serum or plasma albumin/glob ulin mass ratioon 03-03-2024 Albumin/Globulin [Mass ratio] 0.9 {ratio} [facility] Albumin/Globulin [Mass ratio] 1.3 {ratio} 0.7-1.7 [facility] Serum or plasma alpha 1 glob ulin measurement by electrophoresis (mass/volume)on 03-03-2024 Alpha 1 globulin Elph [Mass/Vol] 0.3 g/dL 0.0-0.4 [facility] Serum or plasma alpha 2 glob ulin measurement by electrophoresis (mass/volume)on 03-03-2024 Alpha 2 globulin Elph [Mass/Vol] 0.7 g/dL 0.4-1.0 [facility] Serum or plasma anion gap de terminationon 03-03-2024 Anion gap [Moles/Vol] 15.9 mmol/L [facility] Serum or plasma beta globuli n measurement by electrophoresis (mass/volume)on 03-03-2024 Beta globulin Elph [Mass/Vol] 1.0 g/dL 0.7-1.3 [facility] Serum or plasma gamma globul in measurement by electrophoresis (mass/volume)on 03-03-2024 Gamma globulin Elph [Mass/Vol] 0.8 g/dL 0.4-1.8 [facility] Serum or plasma immunoelectr ophoresis interpretationon 03-03-2024 Interpretation IEP [Interp] Comment . [facility] Comment on above: No monoclonality det ected. Estimated glomerular filtrat ion rate (GFR) non- Americanon 02-10-2024 GFR/1.73 sq M.predicted among non-blacks MDRD (S/P/Bld) [Vol rate/Area] 27 mL/min/{1.73_m2} >=60 [facility] Globulin Calc (S) [Mass/Vol] on 02-10-2024 Globulin (S) [Mass/Vol] 3.7 g/dL [facility] Laboratory - Chemistry and C hemistry - challengeon 02-10-2024 Albumin [Mass/Vol] 3.3 g/dL 3.4-5.0 [facility] ALP [Catalytic activity/Vol] 174 U/L 46-116 [facility] ALT [Catalytic activity/Vol] 24 U/L 14-59 [facility] Amylase [Catalytic activity/Vol] 16 U/L 25-115 [facility] AST [Catalytic activity/Vol] 19 U/L 15-37 [facility] Bilirubin [Mass/Vol] 0.4 mg/dL 0.2-1.0 [facility] Calcium [Mass/Vol] 8.6 mg/dL 8.5-10.1 [facility] Chloride [Moles/Vol] 107 mmol/L 98-107 [facility] CO2 [Moles/Vol] 26.8 mmol/L 21.0-32.0 [facility] Creatinine [Mass/Vol] 1.81 mg/dL 0.55-1.02 [facility] GFR/1.73 sq M.predicted MDRD (S/P/Bld) [Vol rate/Area] 33 mL/min/{1.73_m2} >=60 [facility] Glucose [Mass/Vol] 85 mg/dL 74-106 [facility] Lipase [Catalytic activity/Vol] 13.0 U/L 16.0-77.0 [facility] Potassium [Moles/Vol] 4.6 mmol/L 3.5-5.1 [facility] Protein [Mass/Vol] 7.0 g/dL 6.4-8.2 [facility] Sodium [Moles/Vol] 143 mmol/L 136-145 [facility] Urea nitrogen [Mass/Vol] 25.0 mg/dL 7.0-18.0 [facility] Urea nitrogen/Creatinine [Mass ratio] 13.8 mg/mg [facility] Serum or plasma albumin/glob ulin mass ratioon 02-10-2024 Albumin/Globulin [Mass ratio] 0.9 {ratio} [facility] Serum or plasma anion gap de terminationon 02-10-2024 Anion gap [Moles/Vol] 13.8 mmol/L [facility] Serum or plasma cancer antig en 19-9 measurement (units/volume)on 02-10-2024 Cancer Ag 19-9 Qn 13 [arb'U]/mL 0-35 [facility] Comment on above: [employer] El ectrochemiluminescence Immunoassay(ECLIA)Values obtained with different assay methods or kits cannotbe used interchangeably. Results cannot be interpreted asabsolute evidence of the presence or absence of malignantdisease.Performed at: [facility] [id number] Director: Junaid Sawyer PhD, Phone: [phone] CNOVon 12-23-2023 CNOV Office Visit (NEEPFV ) -- CASSI RODRIGEZ ([id number]) 1950 F Date Time Provider Department 12/23/23 9:00 AM ALEJANDRO VILLAR NEEPFV During your visit today, we recorded the following information about you: Temperature Pulse Blood pressure Weight 97.6 degrees 85/minute 133/72 86.6 kg Height 1.575 m Alejandro Villar MD, PhD 12/23/2023 1:37 PM Signed [facility] CHIEF COMPLAINT: Patient presents [...] was referred to the headache clinic at [facility] in the past but at this [...] There is no focal weakness. PREVIOUS EVALUATIONS: 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 Normal [facility] 09-13-2023 [facility] (CARDAV) -- CASSI RODRIGEZ ([id number]) 1950 F Date Time Provider Department 09/13/23 MIRIAN BELL During your visit today, we recorded the following information about you: Brenda Hodges RN 09/13/2023 8:00 AM Signed Received medical records from [facility] and scanned into chart for review. Mirian Bell APRN.CNP 09/13/2023 1:54 PM Signed Thank you reviewed scan documents. Mirian Bell APRN.BONE CHAR OPERATOR Allergies As of Date: 09/13/2023 Noted [...] by MIRIAN BELL on 09/13/23 [facility] CNOVon 09-08-2023 CNOV Office Visit (CARDAV ) -- JACECASSI ([id number]) 1950 F Date Time Provider Department 09/08/23 2:30 PM MIRIAN BELL During your visit today, we recorded the following information about you: Pulse Blood pressure Weight Height 62/minute 130/64 86.5 kg 1.575 m Mirian Bell APRN.CNP 09/08/2023 3:29 PM Signed [facility] [facility] Department of Cardiovascular Medicine SECTION OF CARDIAC PACING and ELECTROPHYSIOLOGY OUTPATIENT VISIT DATE September 08, 2023 OUTPATIENT VISIT TYPE ESTABLISHED PRIMARY CARE PHYSICIAN: Broderick Howard (Zack) [facility] [place] [address] CHIEF COMPLAINT: follow up device management HISTORY [...] right leg DVT (2012), seizure, SHELL, IBS, 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 Moderate functional capacity (active with ADL, [...] 68 8 (more content not included)... Normal [facility] [id number] 09-08-2023 ECG01 Ventricular Rate : 6 2 BPM Atrial Rate : 62 BPM P-R Interval : 194 ms QRS Duration : 76 ms Q-T Interval : 424 ms QTC Calculation(Bazett) : 430 ms Calculated P [place] : 57 degrees Calculated R [place] : 70 degrees Calculated T [place] : 76 degrees ATRIAL-PACED RHYTHM Confirmed by KALIN AGUILA MD ([id number]) on 09/12/2023 10:29:58 PM NAME : CASSI RODRIGEZ PID : [id number] : 1950 Gender : Female Race : ORD : Procedure Date : Sep 08 2023 15:00:29 Edit Date : Sep 12 2023 22:29:59 Diagnosis: ATRIAL-PACED RHYTHM Confirmed by KALIN AGUILA MD ([id number]) on 09/12/2023 10:29:58 PM Test Reason : Location : 192 : AVCRD Overread By : KALIN AGUILA MD Edited By : KALIN AGUILA MD Referred By : , Acquired by : , Normal [facility] ECG01 Ventricular Rate : 6 4 BPM Atrial Rate : 64 BPM P-R Interval : 200 ms QRS Duration : 80 ms Q-T Interval : 406 ms QTC Calculation(Bazett) : 418 ms Calculated P [place] : 94 degrees Calculated R [place] : 94 degrees Calculated T [place] : 83 degrees SUSPECT ARM LEAD REVERSAL, PLEASE REPEAT ATRIAL-PACED RHYTHM RIGHT AXIS LOW VOLTAGE QRS, CONSIDER PULMONARY DISEASE, PERICARDIAL EFFUSION, OR NORMAL VARIANT ABNORMAL ECG Confirmed by KALIN AGUILA MD ([id number]) on 09/12/2023 10:29:06 PM NAME : CASSI RODRIGEZ PID : [id number] : 1950 Gender : Female Race : ORD : Procedure Date : Sep 08 2023 14:58:41 Edit Date : Sep 12 2023 22:29:09 Diagnosis: SUSPECT ARM LEAD REVERSAL, PLEASE REPEAT ATRIAL-PACED RHYTHM RIGHT AXIS LOW VOLTAGE QRS, CONSIDER PULMONARY DISEASE, PERICARDIAL EFFUSION, OR NORMAL VARIANT ABNORMAL ECG Confirmed by KALIN AGUILA MD ([id number]) on 09/12/2023 10:29:06 PM Test Reason : Location : 192 : AVCRD Overread By : KALIN AGUILA MD Edited By : KALIN AGUILA MD Referred By : , Acquired by : , Normal [facility] No Panel Informationon 09-08 BLANK _ [facility] Implant Date 05/22/2015 [facility] Model 5076 [employer]Fix [facility] CHECKon AV Delay Adaptive Paced Minimum (ms) 180 ms [facility] AV Delay Adaptive Sensed Minimum (ms) 150 ms [facility] AV Delay Adaptive Status DISABLED [facility] [facility] Voltage (volts) 2.94 V [facility] RA Pacing Amplitude (volts) 1.5 V [facility] RA Pacing Polarity BI [facility] RA Pacing Pulse Width (ms) 0.4 ms [facility] RA Sensing Amplitude (mvolts) 0.3 mV [facility] RA Sensing Blanking Period (ms) 150 ms [facility] RA Sensing Polarity BI [facility] RA Sensing Refractory Period (ms) Auto [facility] RV Pacing Amplitude (volts) 2 V [facility] RV Pacing Polarity BI [facility] RV Pacing Pulse Width (ms) 0.4 ms [facility] RV Sensing Amplitude (mvolts) 0.9 mV [facility] RV Sensing Blanking Period (ms) 200 ms [facility] RV Sensing Polarity BI [facility] Hysteresis Rate (bpm) DISABLED [facility] Lead1 Mfg MDT [facility] Lead2 Mfg MDT [facility] Location RV [facility] Location RA [facility] Lower Rate (bpm) 60 {beats}/min [facility] Max Sensor Rate (bmp) 130 {beats}/min [facility] Model [id number] COBOS [facility] PM-Device Mfg ARIANNA [facility] PM-Percent Pacing (A) 99.4 % [facility] PM-Percent Pacing (V) 0.24 % [facility] PM-PMT Intervention ENABLED [facility] PM-PVC Intervention ENABLED [facility] PM-Rate Modulation Acceleration Reaction 30 s [facility] PM-Rate Modulation ADL Rate (bpm) 100 {beats}/min [facility] PM-Rate Modulation Deceleration Exercise [facility] PM-Rate Modulation Threshold MediumLow [facility] RA Bipolar Impedance ohms 456 ohm [facility] RA Unipolar Impedance ohms 418 ohm [facility] RV Bipolar Impedance ohms 551 ohm [facility] RV Unipolar Impedance 532 ohm [facility] Serial Number [id number] [facility] Serial Number [id number] [facility] Serial Number [id number] [facility] Thresh RA Capture Amplitude (volts) 0.5 V [facility] Thresh RA Capture Duration (ms) 0.4 ms [facility] Thresh RA Sensing Amplitude (mvolts) 1.5 mV [facility] Thresh RV Capture Amplitude (volts) 0.75 V [facility] Thresh RV Capture Duration (ms) 0.4 ms [facility] Thresh RV Sensing Amplitude (mvolts) 13.125 mV [facility] Tracking Rate (bpm) 130 {beats}/min [facility] Complete Blood Count Auto Di ffon 08-12-2023 Basophils (Bld) [#/Vol] 0.0 10*3/uL Normal 0.0-0.2 [facility] Comment on above: Order Comment: Reaso n for Exam Lumbar spondylosis;Postoperative wound infection Result Comment: PERF ORMED BY: [place] [address] PATHOLOGIST GASOLINE TESTER LELE FALK M.D. Performed By: #### P T, PTT #### [address] Basophils/100 WBC (Bld) 0.5 % Normal . [facility] Comment on above: Order Comment: Reaso n for Exam Lumbar spondylosis;Postoperative wound infection Performed By: #### P T, PTT #### [address] Eosinophils (Bld) [#/Vol] 0.2 10*3/uL Normal 0.0-0.45 [facility] Comment on above: Order Comment: Reaso n for Exam Lumbar spondylosis;Postoperative wound infection Performed By: #### P T, PTT #### [place] [address] [place] Eosinophils/100 WBC (Bld) 4.4 % Normal . [facility] Comment on above: Order Comment: Reaso n for Exam Lumbar spondylosis;Postoperative wound infection Performed By: #### P T, PTT #### [address] Erythrocyte distribution width (RBC) [Ratio] 13.3 % Normal 11.9-15.3 [facility] Comment on above: Order Comment: Reaso n for Exam Lumbar spondylosis;Postoperative wound infection Performed By: #### P T, PTT #### [address] Hematocrit (Bld) [Volume fraction] 28.8 % Low 34.0-46.4 [facility] Comment on above: Order Comment: Reaso n for Exam Lumbar spondylosis;Postoperative wound infection Performed By: #### P T, PTT #### [address] [place] [address] [place] Hemoglobin (Bld) [Mass/Vol] 9.6 g/dL Low 11.8-15.4 [facility] Comment on above: Order Comment: Reaso n for Exam Lumbar spondylosis;Postoperative wound infection Performed By: #### P T, PTT #### [address] Lymphocytes (Bld) [#/Vol] 0.6 10*3/uL Low 1.00-4.8 [facility] Comment on above: Order Comment: Reaso n for Exam Lumbar spondylosis;Postoperative wound infection Performed By: #### P T, PTT #### [address] Lymphocytes/100 WBC (Bld) 14.8 % Normal . [facility] Comment on above: Order Comment: Reaso n for Exam Lumbar spondylosis;Postoperative wound infection Performed By: #### P T, PTT #### [address] MCH (RBC) [Entitic mass] 31.9 pg Normal 24.7-34.3 [facility] Comment on above: Order Comment: Reaso n for Exam Lumbar spondylosis;Postoperative wound infection Performed By: #### P T, PTT #### [address] MCV (RBC) [Entitic vol] 95.0 fL Normal 80-100 [facility] Comment on above: Order Comment: Reaso n for Exam Lumbar spondylosis;Postoperative wound infection Performed By: #### P T, PTT #### [address] Mean Corpuscular HGB Conc 33.5 g/dL Normal 32.0-35.0 [facility] Comment on above: Order Comment: Reaso n for Exam Lumbar spondylosis;Postoperative wound infection Performed By: #### P T, PTT #### [address] Monocytes (Bld) [#/Vol] 0.3 10*3/uL Normal 0.0-0.8 [facility] Comment on above: Order Comment: Reaso n for Exam Lumbar spondylosis;Postoperative wound infection Performed By: #### P T, PTT #### [facility] [address] [place] [address] [place] Monocytes/100 WBC (Bld) 7.5 % Normal . [facility] Comment on above: Order Comment: Reaso n for Exam Lumbar spondylosis;Postoperative wound infection Performed By: #### P T, PTT #### [facility] [address] [place] [address] [place] Neutrophils (Bld) [#/Vol] 3.1 10*3/uL Normal 1.8-7.7 [facility] Comment on above: Order Comment: Reaso n for Exam Lumbar spondylosis;Postoperative wound infection Performed By: #### P T, PTT #### [facility] [address] Neutrophils/100 WBC (Bld) 72.8 % Normal . [facility] Comment on above: Order Comment: Reaso n for Exam Lumbar spondylosis;Postoperative wound infection Performed By: #### P T, PTT #### [facility] [address] [place] [address] [place] NRBC% 0.1 /100{WBC} Normal 0-0.5 [facility] Comment on above: Order Comment: Reaso n for Exam Lumbar spondylosis;Postoperative wound infection Performed By: #### P T, PTT #### [facility] [address] [place] [address] [place] Platelet mean volume (Bld) [Entitic vol] 7.7 fL Normal 6.3-10.7 [facility] Comment on above: Order Comment: Reaso n for Exam Lumbar spondylosis;Postoperative wound infection Performed By: #### P T, PTT #### [facility] [address] [place] [id number] [place] Platelets (Bld) [#/Vol] 258 10*3/uL Normal 150-450 [facility] Comment on above: Order Comment: Reaso n for Exam Lumbar spondylosis;Postoperative wound infection Performed By: #### P T, PTT #### [facility] [address] [place] [address] [place] RBC (Bld) [#/Vol] 3.03 10*6/uL Low 3.60-5.00 [facility] Comment on above: Order Comment: Reaso n for Exam Lumbar spondylosis;Postoperative wound infection Performed By: #### P T, PTT #### [facility] [address] [place] [address] WBC (Bld) [#/Vol] 4.3 10*3/uL Normal 3.8-11.6 [facility] Comment on above: Order Comment: Reaso n for Exam Lumbar spondylosis;Postoperative wound infection Performed By: #### P T, PTT #### [facility] [address] [place] [address] Partial Thromboplastin Timeo n 08-12-2023 aPTT Coag (Bld) [Time] 46.9 s High 25.1-36.5 [facility] Comment on above: Order Comment: Reaso n for Exam Lumbar spondylosis;Postoperative wound infection List the anticoagulant: ASPIRIN Result Comment: A he matocrit value greater than 55% may lead to inaccurate results in coagulation testing. Patients having hematocrit values >55% require a special collection tube for coagulation studies. Please contact the laboratory at [phone] for redraw instructions. PERFORMED BY: [place] [address] PATHOLOGIST GASOLINE TESTER LELE FALK M.D. Performed By: #### P T, PTT #### [address] Prothrombin Time INRon 08-12 INR Coag (PPP) [Relative time] 2.5 {INR} Normal [facility] Comment on above: Order Comment: [...] Performed By: #### P T, PTT #### [address] PT Coag (PPP) [Time] 29.5 s High 9.0-12.9 [facility] Comment on above: Order Comment: Reaso n for Exam Lumbar spondylosis;Postoperative wound infection List the anticoagulant: ASPIRIN Result Comment: A he matocrit value greater than 55% may lead to inaccurate results in coagulation testing. Patients having hematocrit values >55% require a special collection tube for coagulation studies. Please contact the laboratory at [phone] for redraw instructions. Performed By: #### P T, PTT #### [address] Automated basophil %Ordered By: Niki Blades on 08-05-2023 Basophils/100 WBC (Bld) 0.2 % Normal . [facility] Comment on above: Performed By: #### P T, PTT #### [address] Automated basophil countOrde red By: Niki Blades on 08-05-2023 Basophils (Bld) [#/Vol] 0.0 10*3/uL Normal 0.0-0.2 [facility] Comment on above: Result Comment: PERF ORMED BY: [place] [address] PATHOLOGIST GASOLINE TESTER LELE FALK M.D. Performed By: #### P T, PTT #### [address] Automated blood monocyte cou ntOrdered By: Niki Blades on 08-05-2023 Monocytes (Bld) [#/Vol] 0.7 10*3/uL Normal 0.0-0.8 [facility] Comment on above: Performed By: #### P T, PTT #### [address] Automated eosinophil %Ordere d By: Niki Blades on 08-05-2023 Eosinophils/100 WBC (Bld) 1.7 % Normal . [facility] Comment on above: Performed By: #### P T, PTT #### [address] Automated eosinophil countOr dered By: Niki Blades on 08-05-2023 Eosinophils (Bld) [#/Vol] 0.1 10*3/uL Normal 0.0-0.45 [facility] Comment on above: Performed By: #### P T, PTT #### [address] Automated monocyte %Ordered By: Niki Blades on 08-05-2023 Monocytes/100 WBC (Bld) 9.2 % Normal . [facility] Comment on above: Performed By: #### P T, PTT #### [address] Automated neutrophil %Ordere d By: Niki Blades on 08-05-2023 Neutrophils/100 WBC (Bld) 77.1 % Normal . [facility] Comment on above: Performed By: #### P T, PTT #### [address] Basic Metabolic Panelon 07-17 Creatinine Clr Calc Pharmacy 38.09 Normal [facility] Comment on above: Result Comment: PERF ORMED BY: [place] [address] PATHOLOGIST GASOLINE TESTER LELE FALK M.D. Performed By: #### P T, PTT #### [address] GFR/1.73 sq M.predicted MDRD (S/P/Bld) [Vol rate/Area] 38.727 mL/min/{1.73_m2} Normal [facility] Comment on above: Performed By: #### P T, PTT #### [address] Calcium [Mass/volume] in Ser um or PlasmaOrdered By: Niki Blades on 08-05-2023 Calcium [Mass/Vol] 8.1 mg/dL Low 8.6-10.3 [facility] Comment on above: Performed By: #### P T, PTT #### [facility] [address] [place] [address] Carbon dioxide, total [Moles /volume] in Serum or PlasmaOrdered By: Niki Blades on 08-05-2023 CO2 [Moles/Vol] 25.2 mmol/L Normal 21.0-31.0 [facility] Comment on above: Performed By: #### P T, PTT #### [address] Chloride [Moles/volume] in S akila or PlasmaOrdered By: Niki Blades on 08-05-2023 Chloride [Moles/Vol] 111 mmol/L High 98-107 [facility] Comment on above: Performed By: #### P T, PTT #### [address] Complete Blood Count Auto Di ffon 08-05-2023 Mean Corpuscular HGB Conc 33.5 g/dL Normal 32.0-35.0 [facility] Comment on above: Performed By: #### P T, PTT #### [address] NRBC% 0.4 /100{WBC} Normal 0-0.5 [facility] Comment on above: Performed By: #### P T, PTT #### [facility] [address] [place] [address] Creatinine [Mass/volume] in Serum or PlasmaOrdered By: Niki Blades on 08-05-2023 Creatinine [Mass/Vol] 1.43 mg/dL High 0.60-1.20 [facility] Comment on above: Performed By: #### P T, PTT #### [address] Erythrocyte distribution wid th [Ratio] by Automated countOrdered By: Niki Blades on 08-05-2023 Erythrocyte distribution width (RBC) [Ratio] 13.5 % Normal 11.9-15.3 [facility] Comment on above: Performed By: #### P T, PTT #### [facility] [address] [place] [address] [place] Erythrocytes [#/volume] in B lood by Automated countOrdered By: Niki Weeks on 08-05-2023 RBC (Bld) [#/Vol] 3.14 10*6/uL Low 3.60-5.00 [facility] Comment on above: Performed By: #### P T, PTT #### [facility] [address] [place] [address] [place] Glucose [Mass/volume] in Ser um or PlasmaOrdered By: Niki Weeks on 08-05-2023 Glucose [Mass/Vol] 121 mg/dL High 70-100 [facility] Comment on above: ADA recommended refe rence rangeRandom Glucose Reference Range is dependent on time and content of last meal. Glucose of more than 200 mg/dL in a nonstressed, ambulatory subject supports the diagnosis of Diabetes Mellitus. Result Comment: [place] om Glucose Reference Range is dependent on time and content of last meal. Glucose of more than 200 mg/dL in a nonstressed, ambulatory subject supports the diagnosis of Diabetes Mellitus. ADA recommended reference range Performed By: #### P T, PTT #### [facility] [address] Hematocrit [Volume Fraction] of Blood by Automated countOrdered By: Niki Weeks on 08-05-2023 Hematocrit (Bld) [Volume fraction] 29.9 % Low 34.0-46.4 [facility] Comment on above: Performed By: #### P T, PTT #### [facility] [address] Hemoglobin [Mass/volume] in BloodOrdered By: Niki Weeks on 08-05-2023 Hemoglobin (Bld) [Mass/Vol] 10.0 g/dL Low 11.8-15.4 [facility] Comment on above: Performed By: #### P T, PTT #### [facility] [address] [place] [address] [place] Leukocytes [#/volume] correc tanesha for nucleated erythrocytes in Blood by Automated counOrdered By: Niki Blades on 08-05-2023 WBC corrected for nucl RBC Auto (Bld) [#/Vol] 7.3 10*3/uL 3.8-11.6 [facility] Leukocytes [#/volume] in Blo od by Automated countOrdered By: Niki Blades on 08-05-2023 WBC (Bld) [#/Vol] 7.3 10*3/uL Normal 3.8-11.6 [facility] Comment on above: Performed By: #### P T, PTT #### [facility] [address] [place] [address] [place] Lymphocytes [#/volume] in Bl ood by Automated countOrdered By: Niki Blades on 08-05-2023 Lymphocytes (Bld) [#/Vol] 0.9 10*3/uL Low 1.00-4.8 [facility] Comment on above: Performed By: #### P T, PTT #### [facility] [address] [place] [address] Lymphocytes/100 leukocytes i n Blood by Automated countOrdered By: Niki Blades on 08-05-2023 Lymphocytes/100 WBC (Bld) 11.8 % Normal . [facility] Comment on above: Performed By: #### P T, PTT #### [address] MCH [Entitic mass] by Automa tanesha countOrdered By: Niki Blades on 08-05-2023 MCH (RBC) [Entitic mass] 31.9 pg Normal 24.7-34.3 [facility] Comment on above: Performed By: #### P T, PTT #### [facility] [address] [place] [address] MCHC Auto (RBC) [Mass/Vol]Or dered By: Niki Blades on 08-05-2023 MCHC (RBC) [Mass/Vol] 33.5 g/dL 32.0-35.0 [facility] MCV [Entitic volume] by Auto mated countOrdered By: Niki Blades on 08-05-2023 MCV (RBC) [Entitic vol] 95.1 fL Normal 80-100 [facility] Comment on above: Performed By: #### P T, PTT #### [facility] [address] [place] [address] Neutrophils [#/volume] in Bl ood by Automated countOrdered By: Niki Blades on 08-05-2023 Neutrophils (Bld) [#/Vol] 5.6 10*3/uL Normal 1.8-7.7 [facility] Comment on above: Performed By: #### P T, PTT #### [facility] [address] [place] [address] No Panel InformationOrdered By: Niki Blades on 08-05-2023 Estimated GFR (CKD-EPI) 38.727 mL/Min [facility] Creatinine Clearance (Chem 38.09 [facility] Nucleated erythrocytes [Pres ence] in Blood by Automated countOrdered By: Niki Blades on 08-05-2023 Nucleated RBC Auto Ql (Bld) 0.4 /100{WBC} 0-0.5 [facility] Platelet mean volume [Entiti c volume] in Blood by Automated countOrdered By: Niki Blades on 08-05-2023 Platelet mean volume (Bld) [Entitic vol] 7.6 fL Normal 6.3-10.7 [facility] Comment on above: Performed By: #### P T, PTT #### [facility] [address] [place] [address] Platelets [#/volume] in Bloo d by Automated countOrdered By: Niki Blades on 08-05-2023 Platelets (Bld) [#/Vol] 147 10*3/uL Low 150-450 [facility] Comment on above: Performed By: #### P T, PTT #### [address] Potassium [Moles/volume] in Serum or PlasmaOrdered By: Niki Blades on 08-05-2023 Potassium [Moles/Vol] 4.4 mmol/L Normal 3.5-5.1 [facility] Comment on above: Performed By: #### P T, PTT #### [address] Serum or plasma anion gap de terminationOrdered By: Niki Blades on 08-05-2023 Anion gap [Moles/Vol] 7.2 mmol/L Normal 6.0-15.0 [facility] Comment on above: Performed By: #### P T, PTT #### [address] Sodium [Moles/volume] in Ser um or PlasmaOrdered By: Niki Blades on 08-05-2023 Sodium [Moles/Vol] 139 mmol/L Normal 136-145 [facility] Comment on above: Performed By: #### P T, PTT #### [address] Urea nitrogen [Mass/volume] in Serum or PlasmaOrdered By: Niki Blades on 08-05-2023 Urea nitrogen [Mass/Vol] 25 mg/dL Normal 7-25 [facility] Comment on above: Performed By: #### P T, PTT #### [address] Basic Metabolic Panelon 07-17 Anion gap [Moles/Vol] 7.9 mmol/L Normal 6.0-15.0 [facility] Comment on above: Performed By: #### B MP, CBC #### [address] Calcium [Mass/Vol] 7.4 mg/dL Low 8.6-10.3 [facility] Comment on above: Performed By: #### B MP, CBC #### [place] [address] [place] Chloride [Moles/Vol] 110 mmol/L High 98-107 [facility] Comment on above: Performed By: #### B MP, CBC #### [address] CO2 [Moles/Vol] 23.9 mmol/L Normal 21.0-31.0 [facility] Comment on above: Performed By: #### B MP, CBC #### [address] Creatinine [Mass/Vol] 1.48 mg/dL High 0.60-1.20 [facility] Comment on above: Performed By: #### B MP, CBC #### [place] [address] [place] Creatinine Clr Calc Pharmacy 34.66 Normal [facility] Comment on above: Result Comment: PERF ORMED BY: [place] [address] PATHOLOGIST GASOLINE TESTER LELE FALK M.D. Performed By: #### B MP, CBC #### [place] [address] [place] GFR/1.73 sq M.predicted MDRD (S/P/Bld) [Vol rate/Area] 37.163 mL/min/{1.73_m2} Normal [facility] Comment on above: Performed By: #### B MP, CBC #### [address] Glucose [Mass/Vol] 129 mg/dL High 70-100 [facility] Comment on above: Result Comment: [place] Glucose Reference Range is dependent on time and content of last meal. Glucose of more than 200 mg/dL in a nonstressed, ambulatory subject supports the diagnosis of Diabetes Mellitus. ADA recommended reference range Performed By: #### B MP, CBC #### [place] [address] [place] Potassium [Moles/Vol] 4.8 mmol/L Normal 3.5-5.1 [facility] Comment on above: Performed By: #### B MP, CBC #### [place] [address] [place] Sodium [Moles/Vol] 137 mmol/L Normal 136-145 [facility] Comment on above: Performed By: #### B MP, CBC #### [place] [address] [place] Urea nitrogen [Mass/Vol] 24 mg/dL Normal 7-25 [facility] Comment on above: Performed By: #### B MP, CBC #### [address] Complete Blood Count Auto Di ffon 08-04-2023 Basophils (Bld) [#/Vol] 0.0 10*3/uL Normal 0.0-0.2 [facility] Comment on above: Result Comment: PERF ORMED BY: [place] [address] PATHOLOGIST GASOLINE TESTER LELE FALK M.D. Performed By: #### B MP, CBC #### [address] Basophils/100 WBC (Bld) 0.0 % Normal . [facility] Comment on above: Performed By: #### B MP, CBC #### [address] Eosinophils (Bld) [#/Vol] 0.0 10*3/uL Normal 0.0-0.45 [facility] Comment on above: Performed By: #### B MP, CBC #### [address] Eosinophils/100 WBC (Bld) 0.0 % Normal . [facility] Comment on above: Performed By: #### B MP, CBC #### [address] Erythrocyte distribution width (RBC) [Ratio] 13.6 % Normal 11.9-15.3 [facility] Comment on above: Performed By: #### B MP, CBC #### [address] Hematocrit (Bld) [Volume fraction] 31.5 % Low 34.0-46.4 [facility] Comment on above: Performed By: #### B MP, CBC #### [address] Hemoglobin (Bld) [Mass/Vol] 10.5 g/dL Low 11.8-15.4 [facility] Comment on above: Performed By: #### B MP, CBC #### [address] Lymphocytes (Bld) [#/Vol] 0.5 10*3/uL Low 1.00-4.8 [facility] Comment on above: Performed By: #### B MP, CBC #### [address] Lymphocytes/100 WBC (Bld) 4.4 % Normal . [facility] Comment on above: Performed By: #### B MP, CBC #### [address] MCH (RBC) [Entitic mass] 31.6 pg Normal 24.7-34.3 [facility] Comment on above: Performed By: #### B MP, CBC #### [address] MCV (RBC) [Entitic vol] 94.8 fL Normal 80-100 [facility] Comment on above: Performed By: #### B MP, CBC #### [address] Mean Corpuscular HGB Conc 33.3 g/dL Normal 32.0-35.0 [facility] Comment on above: Performed By: #### B MP, CBC #### [address] Monocytes (Bld) [#/Vol] 0.5 10*3/uL Normal 0.0-0.8 [facility] Comment on above: Performed By: #### B MP, CBC #### [address] Monocytes/100 WBC (Bld) 4.0 % Normal . [facility] Comment on above: Performed By: #### B MP, CBC #### [address] Neutrophils (Bld) [#/Vol] 10.4 10*3/uL High 1.8-7.7 [facility] Comment on above: Performed By: #### B MP, CBC #### [address] Neutrophils/100 WBC (Bld) 91.6 % Normal . [facility] Comment on above: Performed By: #### B MP, CBC #### [facility] [address] NRBC% 0.1 /100{WBC} Normal 0-0.5 [facility] Comment on above: Performed By: #### B MP, CBC #### [address] Platelet mean volume (Bld) [Entitic vol] 7.8 fL Normal 6.3-10.7 [facility] [facility] Comment on above: Performed By: #### B MP, CBC #### [address] Platelets (Bld) [#/Vol] 172 10*3/uL Normal 150-450 [facility] Comment on above: Performed By: #### B MP, CBC #### [address] RBC (Bld) [#/Vol] 3.32 10*6/uL Low 3.60-5.00 [facility] Comment on above: Performed By: #### B MP, CBC #### [place] [address] [place] WBC (Bld) [#/Vol] 11.4 10*3/uL Normal 3.8-11.6 [facility] Comment on above: Performed By: #### B MP, CBC #### [address] ABO/Rh Retypeon 08-03-2023 ABO/RH Recheck Result Positive Normal [facility] Comment on above: Result Comment: PERF ORMED BY: [place] [address] PATHOLOGIST GASOLINE TESTER LELE FALK M.D. Activated partial thrombopla stin time (aPTT) in platelet poor plasma by coagulation aOrdered By: Cj Gamboa on 08-03-2023 aPTT Coag (PPP) [Time] 44.3 s 25.1-36.5 [facility] Comment on above: A hematocrit value g reater than 55% may lead to inaccurate results in coagulation testing. Patients having hematocrit values >55% require a special collection tube for coagulation studies. Please contact the laboratory at [phone] for redraw instructions. INR in Platelet poor plasma by Coagulation assayOrdered By: Cj Gamboa on 08-03-2023 INR Coag (PPP) [Relative time] 2.1 {INR} Normal [facility] Comment on above: INR Therapeutic [...] Performed By: #### P T, PTT #### [facility] [address] [place] [address] 08-03-2023 L ------ Specimen: [id number] Received: 08/03/23 Status: SHARON Russo Num: [id number] Spec Type: Surgical Subm Dr: Niki Weeks MD Tissues: A Gross Only (BACK FB) Procedures: Level 1 Gross Age/ Patient Sex Location Account Attending Physician Cassi Rodrigez 73/F 4N [id number] Niki Weeks MD SPEC NUM: [id number] RECD: 08/03/23 STATUS: SHARON RUSSO NUM: [id number] GRACIA: 08/03/23- [facility] DR: Niki Weeks MD ENTERED: 08/03/[address] [facility] DR: YANET TYPE: Surgical DEPT: S [...] is taken. Gross examination only. CPT Codes 54400 Gross Photo Specimen: [id number] Received: 08/03/23 Status: SHARON Russo Num: [id number] Spec Type: Surgical Subm Dr: Niki Weeks MD Tissues: A Gross Only (BACK FB) Procedures: Level 1 Gross Patient: Cassi Rodrigez [id number] (Continued) Signed (signature on file) Prashanth Wynn MD 08/05/23921 Normal [facility] Partial Thromboplastin Timeo n 08-03-2023 aPTT Coag (Bld) [Time] 44.3 s High 25.1-36.5 [facility] Comment on above: Result Comment: A he matocrit value greater than 55% may lead to inaccurate results in coagulation testing. Patients having hematocrit values >55% require a special collection tube for coagulation studies. Please contact the laboratory at [phone] for redraw instructions. PERFORMED BY: [address] [address] PATHOLOGIST GASOLINE TESTER LELE FALK M.D. Performed By: #### P T, PTT #### [facility] [address] [place] [address] [facility] Prothrombin time (PT)Ordered By: Cj Gamboa on 08-03-2023 PT Coag (PPP) [Time] 24.8 s High 9.0-12.9 [facility] Comment on above: A hematocrit value g reater than 55% may lead to inaccurate results in coagulation testing. Patients having hematocrit values >55% require a special collection tube for coagulation studies. Please contact the laboratory at [phone] for redraw instructions. Result Comment: A he matocrit value greater than 55% may lead to inaccurate results in coagulation testing. Patients having hematocrit values >55% require a special collection tube for coagulation studies. Please contact the laboratory at [phone] for redraw instructions. Performed By: #### P T, PTT #### [address] [address] [facility] Type and Screenon 08-03-2023 ABO and Rh group Nom (Bld) Blood group A Rh(D) positive Normal [facility] XR lumbar spine 1Von 023 XR lumbar spine 1V [facility] [place] [address] [place] [address] XRay Report Signed Patient: Cassi Rodrigez MR#: [id number] 8 : 1950 Acct:[id number] Age/Sex: 73 / F ADM Date: 08/03/23 Loc: [place] Room: Type: [facility] Attending Dr: Niki Weeks MD [...] 9:50 AM Dictation Location: RADIO-PC-12 Transcribed By: [facility] 08/03/23949 Dictated By: Paris Phoenix MD 08/03/2347 Signed By: 08/03/23949 Normal [facility] Automated basophil %Ordered By: Niki Weeks on 07-20-2023 Basophils/100 WBC (Bld) 0.6 % Normal . [facility] Comment on above: Performed By: #### C BC, BMP #### [facility] [address] [place] [address] Automated basophil countOrde red By: Niki Weeks on 07-20-2023 Basophils (Bld) [#/Vol] 0.0 10*3/uL Normal 0.0-0.2 [facility] Comment on above: Result Comment: PERF ORMED BY: [place] [address] PATHOLOGIST GASOLINE TESTER LELE FALK M.D. Performed By: #### C BC, BMP #### [facility] [address] Automated blood monocyte cou ntOrdered By: Niki Weeks on 07-20-2023 Monocytes (Bld) [#/Vol] 0.4 10*3/uL Normal 0.0-0.8 [facility] Comment on above: Performed By: #### C BC, BMP #### [facility] [address] [place] [address] [place] Automated eosinophil %Ordere d By: Niki Weeks on 07-20-2023 Eosinophils/100 WBC (Bld) 4.9 % Normal . [facility] Comment on above: Performed By: #### C BC, BMP #### [address] Automated eosinophil countOr dered By: Niki Blades on 07-20-2023 Eosinophils (Bld) [#/Vol] 0.3 10*3/uL Normal 0.0-0.45 [facility] Comment on above: Performed By: #### C BC, BMP #### [address] Automated monocyte %Ordered By: Niki Blades on 07-20-2023 Monocytes/100 WBC (Bld) 6.9 % Normal . [facility] Comment on above: Performed By: #### C BC, BMP #### [address] Automated neutrophil %Ordere d By: Niki Blades on 07-20-2023 Neutrophils/100 WBC (Bld) 73.8 % Normal . [facility] Comment on above: Performed By: #### C BC, BMP #### [address] Automated urine color determ inationOrdered By: Niki Rms on 07-20-2023 Color (U) Yellow Normal Yellow [facility] Comment on above: Order Comment: Name Collection Type:: Clean-Voided Midstream Performed By: #### U A #### [address] Basic Metabolic Panelon GFR/1.73 sq M.predicted MDRD (S/P/Bld) [Vol rate/Area] 35.992 mL/min/{1.73_m2} Normal [facility] Comment on above: Performed By: #### C BC, BMP #### [address] Bilirubin Test strip Ql (U)O rdered By: Niki Jags on 07-20-2023 Bilirubin Ql (U) Negative Negative [facility] Calcium [Mass/volume] in Ser um or PlasmaOrdered By: Niki Blades on 07-20-2023 Calcium [Mass/Vol] 8.6 mg/dL Normal 8.6-10.3 [facility] Comment on above: Result Comment: PERF ORMED BY: [place] [address] PATHOLOGIST GASOLINE TESTER LELE FALK M.D. Performed By: #### C BC, BMP #### [address] Carbon dioxide, total [Moles /volume] in Serum or PlasmaOrdered By: Niki Blades on 07-20-2023 CO2 [Moles/Vol] 26.3 mmol/L Normal 21.0-31.0 [facility] Comment on above: Performed By: #### C BC, BMP #### [place] [address] [place] Chloride [Moles/volume] in S akila or PlasmaOrdered By: Niki Blades on 07-20-2023 Chloride [Moles/Vol] 109 mmol/L High 98-107 [facility] Comment on above: Performed By: #### C BC, BMP #### [address] Complete Blood Count Auto Di ffon 07-20-2023 Mean Corpuscular HGB Conc 33.0 g/dL Normal 32.0-35.0 [facility] Comment on above: Performed By: #### C BC, BMP #### [place] [address] [place] NRBC% 0.1 /100{WBC} Normal 0-0.5 [facility] Comment on above: Performed By: #### C BC, BMP #### [place] [address] [place] Creatinine [Mass/volume] in Serum or PlasmaOrdered By: Niki Blades on 07-20-2023 Creatinine [Mass/Vol] 1.52 mg/dL High 0.60-1.20 [facility] Comment on above: Performed By: #### C SUKUMAR, BMP #### [facility] [address] ECG 12 lead ECGon 07-20-2023 ECG 12 lead ECG [facility] [place] [address] [place] [address] Electrocardiograph Report Signed Patient: Cassi Rodrigez MR#: [id number] 8 : 1950 Acct:[id number] Age/Sex: 73 / F ADM Date: 07/20/23 Loc: Room: Type: [facility] Attending Dr: Niki Weeks MD Ordering [...] Brock MD 0 07/20/23 1122 Normal [facility] Erythrocyte distribution wid th [Ratio] by Automated countOrdered By: Niki Weeks on 07-20-2023 Erythrocyte distribution width (RBC) [Ratio] 13.5 % Normal 11.9-15.3 [facility] Comment on above: Performed By: #### C SUKUMAR, BMP #### [facility] [address] Erythrocytes [#/volume] in B lood by Automated countOrdered By: Niki Weeks on 07-20-2023 RBC (Bld) [#/Vol] 4.09 10*6/uL Normal 3.60-5.00 [facility] Comment on above: Performed By: #### C SUKUMAR, BMP #### [facility] [address] Glucose [Mass/volume] in Ser um or PlasmaOrdered By: Niki Weeks on 07-20-2023 Glucose [Mass/Vol] 120 mg/dL High 70-100 [facility] Comment on above: ADA recommended refe rence rangeRandom Glucose Reference Range is dependent on time and content of last meal. Glucose of more than 200 mg/dL in a nonstressed, ambulatory subject supports the diagnosis of Diabetes Mellitus. Result Comment: [place] Glucose Reference Range is dependent on time and content of last meal. Glucose of more than 200 mg/dL in a nonstressed, ambulatory subject supports the diagnosis of Diabetes Mellitus. ADA recommended reference range Performed By: #### C SUKUMAR, BMP #### [address] Hematocrit [Volume Fraction] of Blood by Automated countOrdered By: Niki Weeks on 07-20-2023 Hematocrit (Bld) [Volume fraction] 38.3 % Normal 34.0-46.4 [facility] Comment on above: Performed By: #### C SUKUMAR, BMP #### [address] Hemoglobin [Mass/volume] in BloodOrdered By: Niki Weeks on 07-20-2023 Hemoglobin (Bld) [Mass/Vol] 12.6 g/dL Normal 11.8-15.4 [facility] Comment on above: Performed By: #### C SUKUMAR, BMP #### [address] Ketones Auto test strip (U) [Mass/Vol]Ordered By: Niki Weeks on 07-20-2023 Ketones (U) [Mass/Vol] Negative Negative [facility] Leukocytes [#/volume] correc tanesha for nucleated erythrocytes in Blood by Automated counOrdered By: Niki Weeks on 07-20-2023 WBC corrected for nucl RBC Auto (Bld) [#/Vol] 5.2 10*3/uL 3.8-11.6 [facility] Leukocytes [#/volume] in Blo od by Automated countOrdered By: Niki Blades on 07-20-2023 WBC (Bld) [#/Vol] 5.2 10*3/uL Normal 3.8-11.6 [facility] Comment on above: Performed By: #### C BC, BMP #### [address] Lymphocytes [#/volume] in Bl ood by Automated countOrdered By: Niki Blades on 07-20-2023 Lymphocytes (Bld) [#/Vol] 0.7 10*3/uL Low 1.00-4.8 [facility] Comment on above: Performed By: #### C BC, BMP #### [address] Lymphocytes/100 leukocytes i n Blood by Automated countOrdered By: Niki Blades on 07-20-2023 Lymphocytes/100 WBC (Bld) 13.8 % Normal . [facility] Comment on above: Performed By: #### C BC, BMP #### [address] MCH [Entitic mass] by Automa tanesha countOrdered By: Niki Blades on 07-20-2023 MCH (RBC) [Entitic mass] 30.9 pg Normal 24.7-34.3 [facility] Comment on above: Performed By: #### C BC, BMP #### [address] MCHC Auto (RBC) [Mass/Vol]Or dered By: Niki Blades on 07-20-2023 MCHC (RBC) [Mass/Vol] 33.0 g/dL 32.0-35.0 [facility] MCV [Entitic volume] by Auto mated countOrdered By: Niki Blades on 07-20-2023 MCV (RBC) [Entitic vol] 93.7 fL Normal 80-100 [facility] Comment on above: Performed By: #### C BC, BMP #### [facility] [address] [place] [address] [place] Neutrophils [#/volume] in Bl ood by Automated countOrdered By: Niki Weeks on 07-20-2023 Neutrophils (Bld) [#/Vol] 3.8 10*3/uL Normal 1.8-7.7 [facility] Comment on above: Performed By: #### C BC, BMP #### [facility] [address] Nitrite Test strip Ql (U)Ord ered By: Niki Rms on 07-20-2023 Nitrite Ql (U) Negative Negative [facility] No Panel InformationOrdered By: Niki Weeks on 07-20-2023 Estimated GFR (CKD-EPI) 35.992 mL/Min [facility] Creatinine Clearance (Chem N/A [facility] Nucleated erythrocytes [Pres ence] in Blood by Automated countOrdered By: Niki Weeks on 07-20-2023 Nucleated RBC Auto Ql (Bld) 0.1 /100{WBC} 0-0.5 [facility] Platelet mean volume [Entiti c volume] in Blood by Automated countOrdered By: Niki Bladetina on 07-20-2023 Platelet mean volume (Bld) [Entitic vol] 7.2 fL Normal 6.3-10.7 [facility] Comment on above: Performed By: #### C SUKUMAR, BMP #### [facility] [address] [place] [address] [place] Platelets [#/volume] in Bloo d by Automated countOrdered By: Niki Weeks on 07-20-2023 Platelets (Bld) [#/Vol] 194 10*3/uL Normal 150-450 [facility] Comment on above: Performed By: #### C BC, BMP #### [facility] [address] Potassium [Moles/volume] in Serum or PlasmaOrdered By: Niki Bladetina on 07-20-2023 Potassium [Moles/Vol] 4.6 mmol/L Normal 3.5-5.1 [facility] Comment on above: Performed By: #### C SUKUMAR, BMP #### [address] Protein Auto test strip (U) [Mass/Vol]Ordered By: Niki Blades on 07-20-2023 Protein (U) [Mass/Vol] Negative Negative [facility] Serum or plasma anion gap de terminationOrdered By: Niki Blades on 07-20-2023 Anion gap [Moles/Vol] 9.3 mmol/L Normal 6.0-15.0 [facility] Comment on above: Performed By: #### C SUKUMAR, BMP #### [address] Sodium [Moles/volume] in Ser um or PlasmaOrdered By: Niki Blades on 07-20-2023 Sodium [Moles/Vol] 140 mmol/L Normal 136-145 [facility] Comment on above: Performed By: #### C SUKUMAR, BMP #### [address] Specific gravity Auto test s trip (U) [Rel density]Ordered By: Niki Blades on 07-20-2023 Specific gravity (U) [Rel density] 1.021 1.001-1.03 0 [facility] Urea nitrogen [Mass/volume] in Serum or PlasmaOrdered By: Niki Blades on 07-20-2023 Urea nitrogen [Mass/Vol] 30 mg/dL High 7-25 [facility] Comment on above: Performed By: #### C SUKUMAR, BMP #### [address] Urinalysison 07-20-2023 Appearance (U) Clear Normal Clear [facility] Comment on above: Order Comment: Name Collection Type:: Clean-Voided Midstream Performed By: #### U A #### [address] Bilirubin,Urine Negative Normal Negative [facility] Comment on above: Order Comment: Name Collection Type:: Clean-Voided Midstream Performed By: #### U A #### [address] Glucose Ql (U) Normal Normal Normal [facility] Comment on above: Order Comment: Name Collection Type:: Clean-Voided Midstream Performed By: #### U A #### [address] Ketones Ql (U) Negative Normal Negative [facility] Comment on above: Order Comment: Name Collection Type:: Clean-Voided Midstream Performed By: #### U A #### [address] Leukocyte esterase Test strip Ql (U) Negative Normal Negative [facility] Comment on above: Order Comment: Name Collection Type:: Clean-Voided Midstream Performed By: #### U A #### [place] [address] [place] Nitrite,Urine Negative Normal Negative [facility] Comment on above: Order Comment: Name Collection Type:: Clean-Voided Midstream Performed By: #### U A #### [place] [address] [place] Occult Blood,Urine Negative Normal Negative [facility] Comment on above: Order Comment: Name Collection Type:: Clean-Voided Midstream Result Comment: PERF ORMED BY: [place] [address] PATHOLOGIST GASOLINE TESTER LELE FALK M.D. Performed By: #### U A #### [place] [address] [place] Protein,Urine Negative Normal Negative [facility] Comment on above: Order Comment: Name Collection Type:: Clean-Voided Midstream Performed By: #### U A #### [place] [address] [place] Specificy [place],Urine 1.021 Normal 1.00 1-1.03 0 [facility] Comment on above: Order Comment: Name Collection Type:: Clean-Voided Midstream Performed By: #### U A #### [place] [address] [place] Urobilinogen,Urine Normal Normal Normal [facility] Comment on above: Order Comment: Name Collection Type:: Clean-Voided Midstream Performed By: #### U A #### [facility] [address] Urine clarity by refractomet ry automatedOrdered By: Niki Weeks on 07-20-2023 Clarity Refractometry automated (U) Clear Clear [facility] Urine glucose measurement by automated test strip (mass/volume)Ordered By: Niki Weeks on 07-20-2023 Glucose Auto test strip (U) [Mass/Vol] Normal mg/dL Normal [facility] Urine hemoglobin detection b y automated test stripOrdered By: Niki Weeks on 07-20-2023 Hemoglobin Auto test strip Ql (U) Negative Negative [facility] Urine leukocyte esterase det ection by automated test stripOrdered By: Niki Weeks on 07-20-2023 Leukocyte esterase Auto test strip Ql (U) Negative Negative [facility] Urine pH measurement by auto mated test stripOrdered By: Niki Weeks on 07-20-2023 pH (U) 5.5 [pH] Normal 5.0-9.0 [facility] Comment on above: Order Comment: Name Collection Type:: Clean-Voided Midstream Performed By: #### U A #### [facility] [address] [place] [address] Urobilinogen Auto test strip (U) [Mass/Vol]Ordered By: Niki Weeks on 07-20-2023 Urobilinogen (U) [Mass/Vol] Normal mg/dL Normal [facility] No Panel Informationon 06-16 BLANK _ [facility] Implant Date 05/22/2015 [facility] Model 5076 [employer] [facility] PACEMAKER REMOTE CHECKon AV Delay Adaptive Paced Minimum (ms) 180 ms [facility] AV Delay Adaptive Sensed Minimum (ms) 150 ms [facility] AV Delay Adaptive Status DISABLED [facility] Battery Voltage (volts) 2.94 V [facility] Godfrey RA Pacing Amplitude (volts) 1.5 V [facility] Godfrey RA Pacing Polarity BI [facility] Godfrey RA Pacing Pulse Width (ms) 0.4 ms [facility] Godfrey RA Sensing Amplitude (mvolts) 0.3 mV [facility] Godfrey RA Sensing Blanking Period (ms) 150 ms [facility] Godfrey RA Sensing Polarity BI [facility] Godfrey RA Sensing Refractory Period (ms) Auto [facility] Godfrey RV Pacing Amplitude (volts) 2 V [facility] Godfrey RV Pacing Polarity BI [facility] Godfrey RV Pacing Pulse Width (ms) 0.4 ms [facility] Godfrey RV Sensing Amplitude (mvolts) 0.9 mV [facility] Godfrey RV Sensing Blanking Period (ms) 200 ms [facility] Godfrey RV Sensing Polarity BI [facility] Hysteresis Rate (bpm) DISABLED [facility] Lead1 Mfg MDT [facility] Lead2 Mfg MDT [facility] Location RV [facility] Location RA [facility] Lower Rate (bpm) 60 {beats}/min [facility] Max Sensor Rate (bmp) 130 {beats}/min [facility] Model [id number] COBOS [facility] PM-Device Mfg MDGalo [facility] PM-Percent Pacing (A) 99.76 % [facility] PM-Percent Pacing (V) 0.11 % [facility] PM-PMT Intervention ENABLED [facility] PM-PVC Intervention ENABLED [facility] PM-Rate Modulation Acceleration Reaction 30 s [facility] PM-Rate Modulation ADL Rate (bpm) 100 {beats}/min [facility] PM-Rate Modulation Deceleration Exercise [facility] PM-Rate Modulation Threshold MediumLow [facility] RA Bipolar Impedance ohms 437 ohm [facility] RA Unipolar Impedance ohms 399 ohm [facility] RV Bipolar Impedance ohms 532 ohm [facility] RV Unipolar Impedance 494 ohm [facility] Serial Number [id number] [facility] Serial Number [id number] [facility] Serial Number [id number] [facility] Thresh RA Capture Amplitude (volts) 0.5 V [facility] Thresh RA Capture Duration (ms) 0.4 ms [facility] Thresh RA Sensing Amplitude (mvolts) 2.25 mV [facility] Thresh RV Capture Amplitude (volts) 0.75 V [facility] Thresh RV Capture Duration (ms) 0.4 ms [facility] Thresh RV Sensing Amplitude (mvolts) 12.875 mV [facility] Tracking Rate (bpm) 130 {beats}/min [facility] Keegan 06-07-2023 [facility] Telephone (CARDAV) -- CASSI RODRIGEZ ([id number]) 1950 F Date Time Provider Department 06/07/23 [...] Date Reviewed: 09/10/2022 Reviewed by: Lauren Otero APRN.BONE CHAR OPERATOR - Fully Assessed Reason for Visit: [...] by SALO FREEDMAN RN on 06/07/23 Normal [facility] Creatinine (Bld) [Mass/Vol]O rdered By: Broderick Howard on 06-04-2023 Creatinine [Mass/Vol] 1.6 mg/dL 0.6-1.3 [facility] Comment on above: ER/ESD physician is notified/shown all ISTAT results.Critical values may be confirmed by laboratory testing ifdeemed necessary by ER attending doctor. No Panel Informationon 02-24 BLANK _ [facility] Implant Date 05/22/2015 [facility] Model 5076 [employer] [facility] PACEMAKER REMOTE CHECKon AV Delay Adaptive Paced Minimum (ms) 180 ms [facility] AV Delay Adaptive Sensed Minimum (ms) 150 ms [facility] AV Delay Adaptive Status DISABLED [facility] Battery Voltage (volts) 2.95 V C [facility] Godfrey RA Pacing Amplitude (volts) 1.5 V [facility] Godfrey RA Pacing Polarity BI [facility] Godfrey RA Pacing Pulse Width (ms) 0.4 ms [facility] Godfrey RA Sensing Amplitude (mvolts) 0.3 mV [facility] Godfrey RA Sensing Blanking Period (ms) 150 ms [facility] Godfrey RA Sensing Polarity BI [facility] Godfrey RA Sensing Refractory Period (ms) Auto [facility] Godfrey RV Pacing Amplitude (volts) 2 V [facility] Godfrey RV Pacing Polarity BI [facility] Godfrey RV Pacing Pulse Width (ms) 0.4 ms [facility] Godfrey RV Sensing Amplitude (mvolts) 0.9 mV [facility] Godfrey RV Sensing Blanking Period (ms) 200 ms [facility] Godfrey RV Sensing Polarity BI [facility] Hysteresis Rate (bpm) DISABLED [facility] Lead1 Mfg MDT [facility] Lead2 Mfg MDT [facility] Location RV [facility] Location RA [facility] Lower Rate (bpm) 60 {beats}/min [facility] Max Sensor Rate (bmp) 130 {beats}/min [facility] Model [id number] COBOS [facility] PM-Device Mfg ARIANNA [facility] PM-Percent Pacing (A) 99.67 % [facility] PM-Percent Pacing (V) 0.2 % [facility] PM-PMT Intervention ENABLED [facility] PM-PVC Intervention ENABLED [facility] PM-Rate Modulation Acceleration Reaction 30 s [facility] PM-Rate Modulation ADL Rate (bpm) 100 {beats}/min [facility] PM-Rate Modulation Deceleration Exercise [facility] PM-Rate Modulation Threshold MediumLow [facility] RA Bipolar Impedance ohms 418 ohm [facility] RA Unipolar Impedance ohms 380 ohm [facility] RV Bipolar Impedance ohms 532 ohm [facility] RV Unipolar Impedance 494 ohm [facility] Serial Number [id number] [facility] Serial Number [id number] [facility] Serial Number [id number] [facility] Thresh RA Capture Amplitude (volts) 0.5 V [facility] Thresh RA Capture Duration (ms) 0.4 ms [facility] Thresh RA Sensing Amplitude (mvolts) 2.25 mV [facility] Thresh RV Capture Amplitude (volts) 0.875 V [facility] Thresh RV Capture Duration (ms) 0.4 ms [facility] Thresh RV Sensing Amplitude (mvolts) 12.875 mV [facility] Tracking Rate (bpm) 130 {beats}/min [facility] No Panel Informationon 11-26 BLANK _ [facility] Implant Date 05/22/2015 [facility] Model 5076 [employer] [facility] PACEMAKER REMOTE CHECKon AV Delay Adaptive Paced Minimum (ms) 180 ms [facility] AV Delay Adaptive Sensed Minimum (ms) 150 ms [facility] AV Delay Adaptive Status DISABLED [facility] Battery Voltage (volts) 2.96 V [facility] RA Pacing Amplitude (volts) 1.5 V [facility]frey RA Pacing Polarity BI [facility]frey RA Pacing Pulse Width (ms) 0.4 ms [facility]frey RA Sensing Amplitude (mvolts) 0.3 mV [facility]frey RA Sensing Blanking Period (ms) 150 ms [facility] RA Sensing Polarity BI [facility] RA Sensing Refractory Period (ms) Auto [facility] RV Pacing Amplitude (volts) 2 V [facility] RV Pacing Polarity BI [facility] RV Pacing Pulse Width (ms) 0.4 ms [facility] RV Sensing Amplitude (mvolts) 0.9 mV [facility] RV Sensing Blanking Period (ms) 200 ms [facility] RV Sensing Polarity BI [facility] Hysteresis Rate (bpm) DISABLED [facility] Lead1 Mfg MDT [facility] Lead2 Mfg ARIANNA [facility] Location RV [facility] Location RA [facility] Lower Rate (bpm) 60 {beats}/min [facility] Max Sensor Rate (bmp) 130 {beats}/min [facility] Model [id number] COBOS [facility] PM-Device Jorge KELLER [facility] PM-Percent Pacing (A) 99.43 % [facility] PM-Percent Pacing (V) 0.17 % [facility] PM-PMT Intervention ENABLED [facility] PM-PVC Intervention ENABLED [facility] PM-Rate Modulation Acceleration Reaction 30 s [facility] PM-Rate Modulation ADL Rate (bpm) 100 {beats}/min [facility] PM-Rate Modulation Deceleration Exercise [facility] PM-Rate Modulation Threshold MediumLow [facility] RA Bipolar Impedance ohms 437 ohm [facility] RA Unipolar Impedance ohms 399 ohm [facility] RV Bipolar Impedance ohms 532 ohm [facility] RV Unipolar Impedance 494 ohm [facility] Serial Number [id number] [facility] Serial Number [id number] [facility] Serial Number [id number] [facility] Thresh RA Capture Amplitude (volts) 0.5 V [facility] Thresh RA Capture Duration (ms) 0.4 ms [facility] Thresh RA Sensing Amplitude (mvolts) 1.875 mV [facility] Thresh RV Capture Amplitude (volts) 0.75 V [facility] Thresh RV Capture Duration (ms) 0.4 ms [facility] Thresh RV Sensing Amplitude (mvolts) 11.75 mV [facility] Tracking Rate (bpm) 130 {beats}/min [facility] No Panel Informationon 08-26 BLANK _ [facility] Implant Date 05/22/2015 [facility] Model 5076 [employer] [facility] PACEMAKER REMOTE CHECKon AV Delay Adaptive Paced Minimum (ms) 180 ms [facility] AV Delay Adaptive Sensed Minimum (ms) 150 ms [facility] AV Delay Adaptive Status DISABLED [facility] Battery Voltage (volts) 2.96 V [facility] RA Pacing Amplitude (volts) 1.5 V [facility] Godfrey RA Pacing Polarity BI [facility] Godfrey RA Pacing Pulse Width (ms) 0.4 ms [facility] Godfrey RA Sensing Amplitude (mvolts) 0.3 mV [facility]frey RA Sensing Blanking Period (ms) 150 ms [facility]frey RA Sensing Polarity BI [facility] RA Sensing Refractory Period (ms) Auto [facility]frey RV Pacing Amplitude (volts) 2 V [facility] RV Pacing Polarity BI [facility] RV Pacing Pulse Width (ms) 0.4 ms [facility]frey RV Sensing Amplitude (mvolts) 0.9 mV [facility] RV Sensing Blanking Period (ms) 200 ms [facility] RV Sensing Polarity BI [facility] Hysteresis Rate (bpm) DISABLED [facility] Lead1 Mfg MDT [facility] Lead2 Mfg MDT [facility] Location RV [facility] Location RA [facility] Lower Rate (bpm) 60 {beats}/min [facility] Max Sensor Rate (bmp) 130 {beats}/min [facility] Model [id number] [address] COBOS [facility] PM-Device Jorge KELLER [facility] PM-Percent Pacing (A) 99.6 % [facility] PM-Percent Pacing (V) 0.24 % [facility] PM-PMT Intervention ENABLED [facility] PM-PVC Intervention ENABLED [facility] PM-Rate Modulation Acceleration Reaction 30 s [facility] PM-Rate Modulation ADL Rate (bpm) 100 {beats}/min [facility] PM-Rate Modulation Deceleration Exercise [facility] PM-Rate Modulation Threshold MediumLow [facility] RA Bipolar Impedance ohms 437 ohm [facility] RA Unipolar Impedance ohms 399 ohm [facility] RV Bipolar Impedance ohms 532 ohm [facility] RV Unipolar Impedance 494 ohm [facility] Serial Number [id number] [facility] Serial Number [id number] [facility] Serial Number [id number] [facility] Thresh RA Capture Amplitude (volts) 0.5 V [facility] Thresh RA Capture Duration (ms) 0.4 ms [facility] Thresh RA Sensing Amplitude (mvolts) 2.5 mV [facility] Thresh RV Capture Amplitude (volts) 0.75 V [facility] Thresh RV Capture Duration (ms) 0.4 ms [facility] Thresh RV Sensing Amplitude (mvolts) 12.125 mV [facility] Tracking Rate (bpm) 130 {beats}/min [facility] US KIDNEYS BLADDERon -26-2 022 US KIDNEYS BLADDER EXAMINATION: [facility] BLADDER HISTORY: Chronic kidney disease [...] EBEN BABCOCK Date: 2022-08-10 19:30 Normal [facility] UA RANDOM W/MICROSCOPICon BACTERIA NONE SEEN Normal NONE SEEN [facility] Comment on above: Performed By: #### U AMIC #### [facility] [address] [place] [address] Dr. Leah Felipe Bilirubin Ql (U) Negative Normal NEGATIVE [facility] Comment on above: Performed By: #### U AMIC #### [facility] [address] [place] [address] Dr. Leah Felipe CAST NONE SEEN Normal NONE SEEN [facility] Comment on above: Performed By: #### U AMIC #### [facility] [address] [place] [address] Dr. Leah Felipe Clarity (U) CLEAR Normal CLEAR [facility] Comment on above: Performed By: #### U AMIC #### [facility] [address] [address] [address] Leah Felipe Color (U) LT. YELLOW Normal YELLOW [facility] Comment on above: Performed By: #### U AMIC #### [facility] [address] [place] [address] Dr. Leah Felipe Crystals LM Nom (Urine sed) NONE SEEN Normal NONE SEEN [facility] Comment on above: Performed By: #### U AMIC #### [facility] [address] [address] [address] Leah Felipe Epithelial cells LM Ql (Urine sed) FEW Abnormal NONE SEEN /RARE [facility] Comment on above: Performed By: #### U AMIC #### [facility] [address] [place] [address] Dr. Leah Felipe Glucose Ql (U) Negative Normal NEGATIVE [facility] Comment on above: Performed By: #### U AMIC #### [facility] [address] [place] [address] Dr. Leah Felipe Hemoglobin Ql (U) Negative Normal NEGATIVE [facility] Comment on above: Performed By: #### U AMIC #### [facility] [address] [place] [address] Dr. Leah Felipe Ketones Ql (U) Negative Normal NEGATIVE [facility] Comment on above: Performed By: #### U AMIC #### [facility] [address] [place] [address] Dr. Leah Felipe LEUKOCYTES Negative Normal NEGATIVE [facility] Comment on above: Performed By: #### U AMIC #### [facility] [address] [place] [address] Dr. Leah Felipe MUCOUS NONE SEEN Normal NONE SEEN [facility] Comment on above: Performed By: #### U AMIC #### [facility] [address] [place] [address] Dr. Leah Felipe Nitrite Ql (U) Negative Normal NEGATIVE [facility] Comment on above: Performed By: #### U AMIC #### [facility] [address] [place] [address] Dr. Leah Felipe pH (U) 6.0 [pH] Normal 5-9 [facility] Comment on above: Performed By: #### U AMIC #### [facility] [address] [place] [address] Dr. Leah Felipe RBC NONE SEEN Abnormal 0-2 [facility] Comment on above: Performed By: #### U AMIC #### [facility] [address] [place] [address] Dr. Leah Felipe SPEC GRAVITY 1.025 Normal 1.005-<=1. 025 [facility] Comment on above: Performed By: #### U AMIC #### [facility] [address] [place] [address] Dr. Leah Felipe UA PROTEIN Negative Normal NEGATIVE/ TRACE [facility] Comment on above: Performed By: #### U AMIC #### [facility] [address] [place] [address] Dr. Leah Felipe Urobilinogen Qn (U) 0.2 {Lin'U}/dL Normal 0.2 - 1. 0 [facility] Comment on above: Performed By: #### U AMIC #### [facility] [address] [place] [address] Dr. Leah Felipe WBC 0-2 Abnormal NONE SEEN [facility] Comment on above: Performed By: #### U AMIC #### [facility] [address] [place] [address] Dr. Leah Felipe URINE T PROTEIN CREAT RATIOo n 08-03-2022 Protein (U) [Mass/Vol] 30.2 mg/dL Critically high <=12.0 [facility] Comment on above: Performed By: #### U RTPCR #### [facility] [address] [place] [address] Dr. Leah Felipe UR PROT CREAT RAT 0.19 Normal [facility] Comment on above: Performed By: #### U RTPCR #### [facility] [address] [place] [address] Dr. Leah Felipe URINE CREAT 159.67 mg/dL Normal 20.00-300. 00 [facility] Comment on above: Performed By: #### U RTPCR #### [facility] [address] [place] [address] Dr. Leah Felipe CBC AUTO DIFFon 07-31-2022 BASO # 0.0 103/ul Normal 0.0-0.1 [facility] Comment on above: Performed By: #### C BC #### [facility] [address] [place] [address] Dr. Leah Felipe Basophils/100 WBC (Bld) 0.6 % Normal 0.2-2.0 [facility] Comment on above: Performed By: #### C BC #### [facility] [address] [place] [address] Dr. Leah Felipe EO # 0.3 103/ul Normal 0.0-0.7 [facility] Comment on above: Performed By: #### C BC #### [facility] [address] [place] [address] Dr. Leah Felipe Eosinophils/100 WBC (Bld) 5.5 % Normal 0.9-7.0 [facility] Comment on above: Performed By: #### C BC #### [facility] [address] [place] [address] Dr. Leah Felipe Erythrocyte distribution width (RBC) [Ratio] 12.5 % Normal 11.0-15.0 [facility] Comment on above: Performed By: #### C BC #### [facility] [address] [place] [address] Dr. Leah Felipe Hematocrit (Bld) [Volume fraction] 39.2 % Normal 36.0-48.0 [facility] Comment on above: Performed By: #### C BC #### [facility] [address] [place] [address] Dr. Leah Felipe Hemoglobin (Bld) [Mass/Vol] 12.5 g/dL Normal 12.0-16.0 [facility] Comment on above: Performed By: #### C BC #### [facility] [address] [place] [address] Dr. Leah Felipe IG # 0.01 10e3/ul Normal 0.00-0.03 [facility] Comment on above: Performed By: #### C BC #### [facility] [address] [place] [address] Dr. Leah Felipe IG % 0.2 % Normal 0.0-0.5 [facility] Comment on above: Performed By: #### C BC #### [facility] [address] [place] [address] Dr. Leah Felipe LYMPH # 0.8 103/ul Critically low 1.2-3.8 [facility] Comment on above: Performed By: #### C BC #### [facility] [address] [place] [address] Dr. Leah Felipe Lymphocytes/100 WBC (Bld) 16.0 % Critically low 20.5-60.0 [facility] Comment on above: Performed By: #### C BC #### [facility] [address] [place] [address] Dr. Leah Felipe MANUAL DIFF REQ NO Normal [facility] Comment on above: Performed By: #### C BC #### [facility] [address] [place] [address] Dr. Leah Felipe MCH (RBC) [Entitic mass] 30.9 pg Normal 26.7-34.0 [facility] Comment on above: Performed By: #### C BC #### [facility] [address] [place] [address] Dr. Leah Felipe MCHC (RBC) [Mass/Vol] 31.9 g/dL Normal 29.9-35.2 [facility] Comment on above: Performed By: #### C BC #### [facility] [address] [place] [address] Dr. Leah Felipe MCV (RBC) [Entitic vol] 97.0 fL Normal 81.0-99.0 [facility] Comment on above: Performed By: #### C BC #### [facility] [address] [place] [address] Dr. Leah Felipe MONO # 0.4 103/ul Normal 0.3-0.8 [facility] Comment on above: Performed By: #### C BC #### [facility] [address] [place] [address] Dr. Leah Felipe Monocytes/100 WBC (Bld) 8.7 % Normal 1.7-12.0 [facility] Comment on above: Performed By: #### C BC #### [facility] [address] [place] [address] Dr. Leah Felipe NEUT # 3.4 103/ul Normal 1.4-6.5 [facility] Comment on above: Performed By: #### C BC #### [facility] [address] [place] [address] Dr. Leah Felipe Neutrophils/100 WBC (Bld) 69.0 % Normal 43.0-75.0 [facility] Comment on above: Performed By: #### C BC #### [facility] [address] [place] [address] Dr. Leah Felipe Platelet mean volume (Bld) [Entitic vol] 9.1 fL Critically low 9.5-13.5 [facility] Comment on above: Performed By: #### C BC #### [facility] [address] [place] [address] Dr. Leah Felipe PLT 196 103/ul Normal 150-450 [facility] Comment on above: Performed By: #### C BC #### [facility] [address] [place] [address] Dr. Leah Felipe RBC 4.04 106/ul Critically low 4.20-5.40 [facility] Comment on above: Performed By: #### C BC #### [facility] [address] [place] [address] Dr. Leah Felipe WBC 5.0 103/ul Normal 4.0-11.0 [facility] Comment on above: Performed By: #### C BC #### [facility] [address] [place] [address] Dr. Leah Felipe PROF CHEM 8 (BAS METB)on Anion gap [Moles/Vol] 9.8 mmol/L Normal [facility] Comment on above: Performed By: #### B MP, TSH #### [facility] [address] [place] [address] Dr. Leah Felipe Calcium [Mass/Vol] 8.2 mg/dL Critically low 8.5-10.1 [facility] Comment on above: Performed By: #### B MP, TSH #### [facility] [address] [place] [address] Dr. Leah Felipe Chloride [Moles/Vol] 107 mmol/L Normal 98-107 [facility] Comment on above: Performed By: #### B MP, TSH #### [facility] [address] [place] [address] Dr. Leah Felipe CO2 [Moles/Vol] 26.4 mmol/L Normal 21.0-32.0 [facility] Comment on above: Performed By: #### B MP, TSH #### [facility] [address] [place] [address] Dr. Leah Felipe Creatinine [Mass/Vol] 1.53 mg/dL Critically high 0.55-1.02 [facility] Comment on above: Performed By: #### B VENANCIO, TSH #### [facility] [address] [place] [address] Dr. Leah Felipe EGFR-AF SAUDI ARABIAN 40 mL/min/1.73m2 Critically low >=60 [facility] Comment on above: Performed By: #### B VENANCIO, TSH #### [facility] [address] [address] [address] Leah Felipe EGFR-NON AF SAUDI ARABIAN 33 mL/min/1.73m2 Critically low >=60 [facility] Comment on above: Performed By: #### B VENANCIO, TSH #### [facility] [address] [place] [address] Dr. Leah Felipe Glucose [Mass/Vol] 108 mg/dL Critically high 74-106 [facility] Comment on above: Performed By: #### B VENANCIO, TSH #### [facility] [address] [place] [address] Dr. Leah Felipe Potassium [Moles/Vol] 4.2 mmol/L Normal 3.5-5.1 [facility] Comment on above: Performed By: #### B VENANCIO, TSH #### [facility] [address] [place] [address] Dr. Leah Felipe Sodium [Moles/Vol] 139 mmol/L Normal 136-145 [facility] Comment on above: Performed By: #### B VENANCIO, TSH #### [facility] [address] [place] [address] Dr. Leah Felipe Urea nitrogen [Mass/Vol] 26.0 mg/dL Critically high 7.0-18.0 [facility] Comment on above: Performed By: #### B VENANCIO, TSH #### [facility] [address] [place] [address] Dr. Leah Felipe Urea nitrogen/Creatinine [Mass ratio] 17.0 mg/mg Normal [facility] Comment on above: Performed By: #### B VENANCIO, TSH #### [facility] [address] [place] [address] Dr. Leah Felipe TSHon 07-31-2022 TSH 1.650 uIU/mL Normal 0.358-3.74 0 [facility] Comment on above: Performed By: #### B MP, TSH #### [facility] [address] [address] [address] Leah Felipe VITAMIN B12on 07-31-2022 Cobalamin (Vitamin B12) [Mass/Vol] 378.0 pg/mL Normal 193.0-986. 0 [facility] Comment on above: Performed By: #### V ITB12 #### [facility] [address] [address] [address] Leah Felipe MG MAMM SCREEN 3D FAVIOLA CADon 07-29-2022 MG MAMM SCREEN 3D FAVIOLA CAD Patient: CASSI RODRIGEZ Exam Date: 07/29/2022 : 1950 Gender:F Ordering : DR BRODERICK HOWARD D.O. Admission #: [id number] Family : Order #: [id number] CLICK HERE TO VIEW EXAM RADIOLOGY REPORT [...] pancreatic cancer at age 64. LOCATION: [facility] BREAST COMPOSITION: Heterogeneously dense,which may obscure small [...] MD on 07/29/2022 at 11:19 Normal [facility] CBC panel Auto (Bld)on 07-23 Erythrocyte distribution width (RBC) [Ratio] 12.5 % Normal 11.5-15.0 [facility] Comment on above: Order Comment: Speci men Type: BLOOD SPECIMEN Ordering Facility: [facility] Address: [address] [place] [address] Performed By: #### 5 8410-2 #### [facility] CLIA [id number] [facility] Hematocrit (Bld) [Volume fraction] 39.3 % Normal 36.0-46.0 [facility] Comment on above: Order Comment: Speci men Type: BLOOD SPECIMEN Ordering Facility: [facility] Address: [address] [place] [address] Performed By: #### 5 8410-2 #### [facility] CLIA [id number] [place] Hemoglobin (Bld) [Mass/Vol] 12.5 g/dL Normal 11.5-15.5 [facility] Comment on above: Order Comment: Speci men Type: BLOOD SPECIMEN Ordering Facility: [facility] Address: [address] [place] [address] Performed By: #### 5 8410-2 #### [facility] [place] [id number] [place] [address] [place] MCH (RBC) [Entitic mass] 31.3 pg Normal 26.0-34.0 [facility] Comment on above: Order Comment: Speci men Type: BLOOD SPECIMEN Ordering Facility: [facility] Address: [address] [place] [address] Performed By: #### 5 8410-2 #### [facility] CLIA [id number] [address] [id number] [place] MCHC (RBC) [Mass/Vol] 31.8 g/dL Normal 30.5-36.0 [facility] Comment on above: Order Comment: Speci men Type: BLOOD SPECIMEN Ordering Facility: [facility] Address: [address] [place], [place] [id number] Performed By: #### 5 8410-2 #### [facility] [place] [id number] [facility] MCV (RBC) [Entitic vol] 98.5 fL Normal 80.0-100.0 [facility] Comment on above: Order Comment: Speci men Type: BLOOD SPECIMEN Ordering Facility: [facility] Address: [address] [place], [place] [id number] Performed By: #### 5 8410-2 #### [facility] [place] [id number] [place] [address] [place] Nucleated RBC (Bld) [#/Vol] 10*3/uL Normal <0.01 [facility] Comment on above: Order Comment: Speci men Type: BLOOD SPECIMEN Ordering Facility: [facility] Address: [address] [place], [place] [id number] Performed By: #### 5 8410-2 #### [facility] [place] [id number] [place] [address] [place] Platelet mean volume (Bld) [Entitic vol] 9.5 fL Normal 9.0-12.7 [facility] Comment on above: Order Comment: Speci men Type: BLOOD SPECIMEN Ordering Facility: [facility] Address: [address] [place], [place] [id number] Performed By: #### 5 8410-2 #### [facility] [place] [id number] [place] Platelets (Bld) [#/Vol] 214 10*3/uL Normal 150-400 [facility] Comment on above: Order Comment: Speci men Type: BLOOD SPECIMEN Ordering Facility: [facility] Address: [address] [place], [place] [id number] Performed By: #### 5 8410-2 #### [facility] [place] [id number] [place] [address] [place] RBC (Bld) [#/Vol] 3.99 10*6/uL Normal 3.90-5.20 [facility] Comment on above: Order Comment: Speci men Type: BLOOD SPECIMEN Ordering Facility: [facility] Address: [address] [place] [address] Performed By: #### 5 8410-2 #### [facility] CLIA [id number] WBC (Bld) [#/Vol] 5.85 10*3/uL Normal 3.70-11.00 [facility] Comment on above: Order Comment: Speci men Type: BLOOD SPECIMEN Ordering Facility: [facility] Address: [address] [place] [address] Performed By: #### 5 8410-2 #### [facility] CLIA [id number] Erythrocyte distribution width (RBC) [Ratio] 12.5 % 11.5 - 15.0 % [facility] Hematocrit (Bld) [Volume fraction] 39.3 % 36.0 - 46.0 % [facility] Hemoglobin (Bld) [Mass/Vol] 12.5 g/dL 11.5 - 15.5 g/dL [facility] MCH (RBC) [Entitic mass] 31.3 pg 26.0 - 34.0 pg [facility] MCHC (RBC) [Mass/Vol] 31.8 g/dL 30.5 - 36.0 g/dL [facility] MCV (RBC) [Entitic vol] 98.5 fL 80.0 - 100.0 fL [facility] Nucleated RBC (Bld) [#/Vol] <0.01 k/uL [facility] Platelet mean volume (Bld) [Entitic vol] 9.5 fL 9.0 - 12.7 fL [facility] Platelets (Bld) [#/Vol] 214 10*3/uL 150 - 400 k/uL [facility] RBC (Bld) [#/Vol] 3.99 10*6/uL 3.90 - 5.20 m/uL [facility] WBC (Bld) [#/Vol] 5.85 10*3/uL 3.70 - 11.00 k/uL [facility] TSH BLDon 07-23-2022 TSH Qn 1.890 m[IU]/L 0.270 - 4.200 mIU/L [facility] TSH SerPl-aCncon 07-23-2022 TSH Qn 1.890 m[IU]/L Normal 0.270-4.20 0 [facility] Comment on above: Order Comment: Speci men Type: BLOOD SPECIMEN Ordering Facility: [facility] Address: [address] [place] [address] [place] [address] Performed By: #### 3 016-3 #### [facility] CLIA [id number] [place] [address] [facility] Vital Signs Date Time Vital Sign Value Performing Clinician Facility 06-29-2024 13:05-0400 Body height 157.5 cm Alejandro Villar MD, PhD Work Phone: [facility] 06-29-2024 13:05-0400 Body mass index (BMI) [Ratio] 34.44 kg/m2 Alejandro Villar MD, PhD Work Phone: [facility] 06-29-2024 13:05-0400 Body weight 85.4 kg Alejandro Villar MD, PhD Work Phone: [facility] 06-29-2024 13:05-0400 Diastolic blood pressure 72 mm[Hg] Alejandro Villar MD, PhD Work Phone: [facility] 06-29-2024 13:05-0400 Heart rate 85 /min Alejandro Villar MD, PhD Work Phone: [facility] 06-29-2024 13:05-0400 Systolic blood pressure 133 mm[Hg] Alejandro Villar MD, PhD Work Phone: [facility] 06-27-2024 14:01-0400 Body height 157.48 cm DO Broderick Ball Work Phone: [facility] 06-27-2024 14:01-0400 Body mass index (BMI) [Ratio] 34.2 kg/m2 DO Broderick Ball Work Phone: [facility] 06-27-2024 14:010400 Body weight 84.82 kg DO Broderick Ball Work Phone: [facility] 06-27-2024 14:0400 Diastolic blood pressure 74 mm[Hg] DO Broderick Ball Work Phone: [facility] 06-27-2024 14:01-0400 Heart rate 68 /min DO Broderick Ball Work Phone: [facility] 06-27-2024 14:0400 Respiratory rate 12 /min DO Broderick Ball Work Phone: [facility] 06-27-2024 14:010400 Systolic blood pressure 123 mm[Hg] DO Broderick Ball Work Phone: [facility] 06-08-2024 14:-040 Body height 157.48 cm DO Broderick Ball Work Phone: [facility] 06-08-2024 14:26-0400 Body mass index (BMI) [Ratio] 34 kg/m2 DO Broderick Ball Work Phone: [facility] 06-08-2024 14:26-040 Body temperature 97.6 [degF] DO Broderick Ball Work Phone: [facility] 06-08-2024 14:26-0400 Body weight 84.36 kg DO Broderick Ball Work Phone: [facility] 06-08-2024 14:26-0400 Diastolic blood pressure 70 mm[Hg] DO Broderick Ball Work Phone: [facility] 06-08-2024 14:26-0400 Heart rate 73 /min DO Broderick Ball Work Phone: [facility] 06-08-2024 14:26-0400 Respiratory rate 16 /min DO Broderick Ball Work Phone: [facility] 06-08-2024 14:26-0400 SaO2% (BldA) [Mass fraction] 99 % DO Broderick Ball Work Phone: [facility] 06-08-2024 14:26-0400 Systolic blood pressure 140 mm[Hg] DO Broderick Ball Work Phone: [facility] 05-30-2024 07:27-0400 Body height 157.48 cm DO Broderick Ball Work Phone: [facility] 05-30-2024 07:27-0400 Body weight 86.18 kg DO Broderick Ball Work Phone: [facility] 05-23-2024 11:23-0400 Body height 157.5 cm Randa Reilly MD Work Phone: [facility] 05-23-2024 11:23-0400 Body mass index (BMI) [Ratio] 34.55 kg/m2 Randa Reilly MD Work Phone: [facility] 05-23-2024 11:23-0400 Body weight 85.68 kg Randa Reilly MD Work Phone: [facility] 05-23-2024 11:23-0400 Diastolic blood pressure 72 mm[Hg] Randa Reilly MD Work Phone: [facility] 05-23-2024 11:23-0400 Heart rate 85 /min Randa Reilly MD Work Phone: [facility] 05-23-2024 11:23-0400 Systolic blood pressure 133 mm[Hg] Randa Reilly MD Work Phone: [facility] 04-21-2024 10:00-0400 Body height 157.48 cm DO Broderick Ball Work Phone: [facility] 04-21-2024 10:00-0400 Body mass index (BMI) [Ratio] 34.5 kg/m2 DO Broderick Ball Work Phone: [facility] 04-21-2024 10:00-0400 Body weight 85.72 kg DO Broderick Ball Work Phone: [facility] 03-29-2024 13:34-0400 Body height 157.48 cm DO Broderick Ball Work Phone: [facility] 03-29-2024 13:34-0400 Body mass index (BMI) [Ratio] 33.3 kg/m2 DO Rboderick Ball Work Phone: [facility] 03-29-2024 13:34-0400 Body weight 82.78 kg DO Broderick Ball Work Phone: [facility] 03-29-2024 13:34-0400 Diastolic blood pressure 77 mm[Hg] DO Broderick Ball Work Phone: [facility] 03-29-2024 13:34-0400 Heart rate 73 /min DO Broderick Ball Work Phone: [facility] 03-29-2024 13:34-0400 Respiratory rate 12 /min DO Broderick Ball Work Phone: [facility] 03-29-2024 13:34-0400 Systolic blood pressure 124 mm[Hg] DO Broderick Ball Work Phone: [facility] 03-27-2024 11:25-0400 Body height 157.48 cm DO Broderick Ball Work Phone: [facility] 03-27-2024 11:25-0400 Body weight 84.36 kg DO Broderick Ball Work Phone: [facility] 03-07-2024 08:53-0400 Body height 157.5 cm Randa Reilly MD Work Phone: [facility] 03-07-2024 08:53-0400 Body mass index (BMI) [Ratio] 34.06 kg/m2 Randa Reilly MD Work Phone: [facility] 03-07-2024 08:53-0400 Body weight 84.46 kg Randa Reilly MD Work Phone: [facility] 03-07-2024 08:53-0400 Diastolic blood pressure 72 mm[Hg] Randa Reilly MD Work Phone: [facility] 03-07-2024 08:53-0400 Heart rate 85 /min Randa Reilly MD Work Phone: [facility] 03-07-2024 08:53-0400 Systolic blood pressure 133 mm[Hg] Randa Reilly MD Work Phone: [facility] 02-09-2024 14:58-0400 Body height 161.29 cm [facility] 02-09-2024 14:58-0400 Body mass index (BMI) [Ratio] 33.5 kg/m2 [facility] 02-09-2024 14:58-0400 Body weight 87.08 kg [facility] 02-09-2024 14:58-0400 Diastolic blood pressure 71 mm[Hg] [facility] 02-09-2024 14:58-0400 Heart rate 78 /min [facility] 02-09-2024 14:58-0400 Respiratory rate 12 /min [facility] 02-09-2024 14:58-0400 Systolic blood pressure 114 mm[Hg] [facility] 12-23-2023 09:02-0500 Body height 157.5 cm Alejandro Villar MD, PhD Work Phone: [facility] 12-23-2023 09:02-0500 Body temperature 97.59 [degF] Alejandro Villar MD, PhD Work Phone: [facility] 12-23-2023 09:02-0500 Body weight 86.64 kg Alejandro Villar MD, PhD Work Phone: [facility] 12-23-2023 09:02-0500 Diastolic blood pressure 72 mm[Hg] Alejandro Villar MD, PhD Work Phone: [facility] 12-23-2023 09:02-0500 Heart rate 85 /min Alejandro Villar MD, PhD Work Phone: [facility] 12-23-2023 09:02-0500 SaO2% (BldA) [Mass fraction] 100 % Alejandro Villar MD, PhD Work Phone: [facility] 12-23-2023 09:02-0500 Systolic blood pressure 133 mm[Hg] Alejandro Villar MD, PhD Work Phone: [facility] 09-08-2023 14:50-0400 Body height 157.5 cm Mirian Bell CW OPERATOR.BONE CHAR OPERATOR Work Phone: [facility] 09-08-2023 14:50-0400 Body weight 86.5 kg Mirian Bell CW OPERATOR.BONE CHAR OPERATOR Work Phone: [facility] 09-08-2023 14:50-0400 Diastolic blood pressure 64 mm[Hg] Mirian Bell CW OPERATOR.BONE CHAR OPERATOR Work Phone: [facility] 09-08-2023 14:50-0400 Heart rate 62 /min Mirian Bell CW OPERATOR.BONE CHAR OPERATOR Work Phone: [facility] 09-08-2023 14:50-0400 Systolic blood pressure 130 mm[Hg] Mirian Bell CW OPERATOR.BONE CHAR OPERATOR Work Phone: [facility] 08-25-2023 10:20-0400 Body height 161.29 cm Niki Blades Other [employer] Other 08-25-2023 10:20-0400 Body mass index (BMI) [Ratio] 34.35 kg/m2 Niki Blades Other [employer] Other 08-25-2023 10:20-0400 Body weight 89.36 kg Niki Blades Other [employer] Other 08-16-2023 10:00-0400 Body height 161.29 cm Niki Blades Other [employer] Other 08-16-2023 10:00-0400 Body mass index (BMI) [Ratio] 34.35 kg/m2 Niki Blades Other [facility] [employer] Other 08-16-2023 10:00-0400 Body weight 89.36 kg Niki Blades Other [employer] Other 08-05-2023 07:21-0400 Body temperature 97.8 [degF] DO Broderick Ball Work Phone: [facility] 08-05-2023 07:21-0400 Diastolic blood pressure 73 mm[Hg] DO Broderick Ball Work Phone: [facility] 08-05-2023 07:21-0400 Heart rate 63 /min DO Broderick Ball Work Phone: [facility] 08-05-2023 07:21-0400 Respiratory rate 14 /min DO Broderick Ball Work Phone: [facility] 08-05-2023 07:21-0400 SaO2% (BldA) [Mass fraction] 97 % DO Broderick Ball Work Phone: [facility] 08-05-2023 07:21-0400 Systolic blood pressure 117 mm[Hg] DO Broderick Ball Work Phone: [facility] 08-05-2023 06:00-0400 Body weight 96.7 kg DO Broderick Ball Work Phone: [facility] 08-04-2023 00:00-0400 Inhaled oxygen flow rate 3 L/min DO Broderick Ball Work Phone: [facility] 08-03-2023 07:02-0400 Body height 157.48 cm DO Broderick Ball Work Phone: [facility] 08-03-2023 07:02-0400 Body mass index (BMI) [Ratio] 35 kg/m2 DO Broderick Ball Work Phone: [facility] 07-07-2023 14:20-0400 Body height 161.29 cm Niki Blades Other [employer] Other 07-07-2023 14:20-0400 Body mass index (BMI) [Ratio] 33.65 kg/m2 Niki Blades Other [employer] Other 07-07-2023 14:20-0400 Body weight 87.54 kg Niki Blades Other [employer] Other 07-07-2023 14:20-0400 Diastolic blood pressure 80 mm[Hg] Niki Blades Other [employer] Other 07-07-2023 14:20-0400 Systolic blood pressure 142 mm[Hg] Niki Blades Other [employer] Other 06-04-2023 08:42-0400 Body height 162.56 cm DO Broderick Ball Work Phone: [facility] 06-04-2023 08:42-0400 Body weight 87.08 kg DO Broderick Ball Work Phone: [facility] 05-06-2023 14:30-0400 Body height 161.29 cm Bertram Sanders Other [employer] Other 05-06-2023 14:30-0400 Body mass index (BMI) [Ratio] 33.3 kg/m2 Bertram Sanders Other [employer] Other 05-06-2023 14:30-0400 Body weight 86.64 kg Bertram Didavidy Other [employer] Other 05-06-2023 14:30-0400 Diastolic blood pressure 70 mm[Hg] Bertram Sanders Other [employer] Other 05-06-2023 14:30-0400 Systolic blood pressure 125 mm[Hg] Bertram Sanders Other [employer] Other 05-03-2023 14:30-0400 Body height 161.29 cm Broderick Ball Other [employer] Other 05-03-2023 14:30-0400 Body mass index (BMI) [Ratio] 33.16 kg/m2 Broderick Ball Other [employer] Other 05-03-2023 14:30-0400 Body weight 86.27 kg Broderick Ball Other [employer] Other 05-03-2023 14:30-0400 Diastolic blood pressure 71 mm[Hg] Broderick Ball Other [employer] Other 05-03-2023 14:30-0400 Respiratory rate 12 /min Broderick Ball Other [employer] Other 05-03-2023 14:30-0400 Systolic blood pressure 120 mm[Hg] Broderick Ball Other [employer] Other 03-25-2023 11:00-0400 Body height 161.29 cm Broderick Ball Other [employer] Other 03-25-2023 11:00-0400 Body mass index (BMI) [Ratio] 33.61 kg/m2 Broderick Ball Other [employer] Other 03-25-2023 11:00-0400 Body weight 87.45 kg Broderick Ball Other [employer] Other 03-25-2023 11:00-0400 Diastolic blood pressure 78 mm[Hg] Broderick Ball Other [employer] Other 03-25-2023 11:00-0400 Respiratory rate 12 /min Broderick Ball Other [employer] Other 03-25-2023 11:00-0400 Systolic blood pressure 135 mm[Hg] Broderick Ball Other [employer] Other 01-07-2023 14:15-0500 Body height 161.29 cm Bertram Sanders Other [employer] Other 01-07-2023 14:15-0500 Body mass index (BMI) [Ratio] 32.25 kg/m2 Bertram Ditty Other [employer] Other 01-07-2023 14:15-0500 Body weight 83.92 kg Bertram Tommy Other [employer] Other 01-07-2023 14:15-0500 Diastolic blood pressure 85 mm[Hg] Bertram Sanders Other [employer] Other 01-07-2023 14:15-0500 Systolic blood pressure 155 mm[Hg] Bertram Sanders Other [employer] Other 11-25-2022 11:00-0500 Body height 161.29 cm Broderick Ball Other [employer] Other 11-25-2022 11:00-0500 Body mass index (BMI) [Ratio] 32.25 kg/m2 Broderick Ball Other [employer] Other 11-25-2022 11:00-0500 Body weight 83.92 kg Broderick Ball Other [employer] Other 11-25-2022 11:00-0500 Diastolic blood pressure 78 mm[Hg] Broderick Ball Other [facility] [employer] Other 11-25-2022 11:00-0500 Respiratory rate 12 /min Broderick Ball Other [facility] [employer] Other 11-25-2022 11:00-0500 Systolic blood pressure 118 mm[Hg] Broderick Ball Other [facility] [employer] Other 09-10-2022 13:48-0400 Body height 157.5 cm Alejandro Villar MD, PhD Work Phone: [facility] 09-10-2022 13:48-0400 Body weight 88.27 kg Alejandro Villar MD, PhD Work Phone: [facility] 09-10-2022 13:48-0400 Diastolic blood pressure 86 mm[Hg] Alejandro Villar MD, PhD Work Phone: [facility] 09-10-2022 13:48-0400 Heart rate 76 /min Alejandro Villar MD, PhD Work Phone: [facility] 09-10-2022 13:48-0400 Systolic blood pressure 148 mm[Hg] Alejandro Villar MD, PhD Work Phone: [facility] 07-23-2022 10:09-0400 Body height 160 cm Kitty Vidal MD Work Phone: [facility] 07-23-2022 10:09-0400 Body weight 88 kg Kitty Vidal MD Work Phone: [facility] 07-23-2022 10:09-0400 Diastolic blood pressure 66 mm[Hg] Kitty Vidal MD Work Phone: [facility] 07-23-2022 10:09-0400 Heart rate 63 /min Kitty Vidal MD Work Phone: [facility] 07-23-2022 10:09-0400 Systolic blood pressure 136 mm[Hg] Kitty Vidal MD Work Phone: [facility] 01-06-2022 11:30-0500 Body height 161.29 cm Bertram Sanders Other [employer] Other 01-06-2022 11:30-0500 Body mass index (BMI) [Ratio] 30.68 kg/m2 Bertram Sanders Other [employer] Other 01-06-2022 11:30-0500 Body weight 79.83 kg Bertram Sanders Other [facility] [employer] Other Encounters Encounter Date Encounter Type Care Provider Facility Start: 07-05-2024 Non-patient / Non-visit DO Miguel A Howard Work Phone: [facility] Work Phone: Start: 07-05-2024 End: 07-05-2024 ambulatory DO Broderick Howard Work Phone: [facility] Work Phone: Start: 07-05-2024 End: 07-05-2024 Departed Referred DO Broderick Howard Work Phone: [facility] Start: 06-29-2024 Non-patient / Non-visit DO Miguel A Howard Work Phone: [facility] Work Phone: Start: 06-29-2024 End: 06-29-2024 ambulatory ALEJANDRO VILLAR Facility:[facility] Start: 06-29-2024 End: 06-29-2024 Patient encounter procedure Alejandro Villar MD, PhD Work Phone: Neurology Comment on above: Focal epilepsy with impairment of consciousness, intractable (HCC) (Primary Dx); Partial epilepsy with impairment of consciousness, intractable (HCC) Start: 06-29-2024 End: 06-29-2024 ambulatory ALEJANDRO VILLAR Facility:[facility] Start: 06-27-2024 End: 06-27-2024 ambulatory DO Broderick Howard Work Phone: [facility] Work Phone: Start: 06-27-2024 End: 06-27-2024 Patient encounter procedure DO Broderick Howard Work Phone: [facility] Work Phone: Start: 06-12-2024 End: 06-12-2024 ambulatory JACK POMPA Not Available Start: 06-08-2024 End: 06-08-2024 ambulatory DO Broderick Howard Work Phone: [facility] Work Phone: Start: 06-08-2024 End: 06-08-2024 Patient encounter procedure DO Broderick Howard Work Phone: [facility] Work Phone: Start: 06-05-2024 Non-patient / Non-visit DO Miguel A Howard Work Phone: [facility] Work Phone: Start: 06-05-2024 End: 06-05-2024 ambulatory Keith Parks MD Facility: [place] Start: 05-30-2024 End: 05-30-2024 Patient encounter procedure DO Broderick Howard Work Phone: [facility] [place] Work Phone: Start: 05-30-2024 End: 05-30-2024 ambulatory DO Broderick Howard Work Phone: [facility] Work Phone: Start: 05-23-2024 End: 05-23-2024 Patient encounter procedure Randa Reilly MD Work Phone: Neurology Comment on above: Intractable 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 aura and without status migrainosus (Primary Dx) Start: 05-23-2024 End: 05-23-2024 ambulatory RANDA Adonis TUCKERREILLY Facility:[facility] Start: 05-15-2024 Non-patient / Non-visit DO Miguel A camargo Ball Work Phone: [facility] Work Phone: Start: 05-15-2024 End: 05-15-2024 ambulatory Keith Parks MD Facility:[facility] Start: 05-05-2024 Non-patient / Non-visit DO Miguel A camargo Ball Work Phone: [facility] Work Phone: Start: 05-03-2024 End: 05-03-2024 ambulatory DAVID MCFADDEN Not Available Start: 04-21-2024 End: 04-21-2024 ambulatory DO Broderick Ball Work Phone: [facility] Work Phone: Start: 04-21-2024 End: 04-21-2024 Patient encounter procedure DO Broderick Ball Work Phone: [facility] Work Phone: Start: 03-29-2024 End: 03-29-2024 Patient encounter procedure DO Broderick Ball Work Phone: [facility] Work Phone: Start: 03-28-2024 End: 03-28-2024 Patient encounter procedure DO Broderick Ball Work Phone: [facility] [place] Work Phone: Start: 03-28-2024 End: 03-28-2024 ambulatory Broderick Ball Facility:[facility] Start: 03-09-2024 End: 03-09-2024 Patient encounter procedure DO Broderick Ball Work Phone: [facility]-Pacemaker Check Start: 03-09-2024 End: 03-09-2024 ambulatory DO Broderick Ball Work Phone: [facility] Work Phone: Start: 03-08-2024 Follow-up encounter Kitty Vidal MD Work Phone: [facility] Department Start: 03-08-2024 Patient encounter procedure Kitty Vidal MD Work Phone: [facility] Start: 03-07-2024 End: 03-07-2024 Patient encounter procedure Randa Reilly MD Work Phone: Neurology Comment on above: Intractable 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 aura and without status migrainosus (Primary Dx); Cervicalgia; SHELL (obstructive sleep apnea) Start: 03-07-2024 End: 03-07-2024 ambulatory RANDA REILLY Facility:[facility] Start: 03-03-2024 Non-patient / Non-visit DO Miguel A Howard Work Phone: [facility] Work Phone: Start: 02-15-2024 Non-patient / Non-visit DO Miguel A Howard Work Phone: [facility] Work Phone: Start: 02-10-2024 Non-patient / Non-visit DO Miguel A Howard Work Phone: [facility] Work Phone: Start: 02-09-2024 End: 02-09-2024 ambulatory [facility] Work Phone: Start: 02-09-2024 End: 02-09-2024 Patient encounter procedure [facility] Work Phone: Start: 12-23-2023 End: 12-23-2023 Patient encounter procedure Alejandro Villar MD, PhD Work Phone: Neurology Comment on above: Intractable 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 aura and without status migrainosus (Primary Dx) Start: 12-23-2023 End: 12-23-2023 ambulatory BRODERICK HOWARD Facility:[facility] Start: 11-24-2023 End: 11-24-2023 ambulatory Broderick Howard Other [employer] Other Start: 11-24-2023 Office outpatient vi sit 15 minutes Broderick Howard [facility] Start: 11-24-2023 End: 11-24-2023 Patient encounter procedure [facility] Work Phone: Start: 09-13-2023 Refill Alejandro wright MD, PhD Work Phone: Neurology Comment on above: Refill Request Patient Update Start: 09-08-2023 End: 09-08-2023 ambulatory MIRIAN BELL Facility:[facility] Start: 09-08-2023 Follow-up encounter Kitty Vidal MD Work Phone: [facility] Start: 09-08-2023 End: 09-08-2023 Patient encounter procedure Kitty Vidal MD Work Phone: [facility] Department Comment on above: 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); Cardiac pacemaker in situ; Bradycardia Start: 08-25-2023 End: 08-25-2023 ambulatory Niki Blades Other [employer] Other Start: 08-25-2023 Postop follow up vis it related to original px Niki Blades [facility] Start: 08-16-2023 End: 08-16-2023 ambulatory Niki Blades Other [employer] Other Start: 08-16-2023 Postop follow up vis it related to original px Niki Blades [facility] Neurosurgery Start: 08-13-2023 End: 08-13-2023 ambulatory Broderick Howard Other [employer] Other Start: 08-13-2023 Telephone encounter Broderick Howard [facility] Start: 08-12-2023 Postop follow up vis it related to original px Niki Blades [facility] Start: 08-12-2023 End: 08-12-2023 ambulatory Niki A Blades [facility] [id number] Other Start: 08-03-2023 End: 08-05-2023 Admission to same day surgery center DO Broderick Ball Work Phone: [facility] [place] Start: 08-03-2023 End: 08-05-2023 ambulatory DO Broderick Ball Work Phone: [facility] Work Phone: Start: 08-02-2023 End: 08-02-2023 ambulatory Broderick Howard Other [employer] Other Start: 08-02-2023 Telephone encounter Broderick Howard [facility] Start: 07-20-2023 End: 07-20-2023 Patient encounter procedure DO Broderick Ball Work Phone: [facility] Work Phone: Start: 07-20-2023 End: 07-20-2023 ambulatory DO Broderick Lee Work Phone: [facility] Work Phone: Start: 07-09-2023 End: 07-09-2023 ambulatory Niki Blades Other [employer] Other Start: 07-09-2023 Telephone encounter Niki Blades F [facility] Customer Service Advisor Start: 07-07-2023 End: 07-07-2023 ambulatory Niki Blades Other [employer] Other Start: 07-07-2023 Office outpatient ne w 45 minutes Niki Blades [facility] Neurosurgery Start: 06-08-2023 Follow-up encounter Kitty Vidal MD Work Phone: [facility] Start: 06-08-2023 Pacemaker Remote F/U Kitty Vidal MD Work Phone: [facility] Department Start: 06-04-2023 ambulatory Facility:[id number] Start: 06-04-2023 End: 06-04-2023 ambulatory DO Broderick Howard Work Phone: [facility] Work Phone: Start: 06-04-2023 End: 06-04-2023 Patient encounter procedure DO Broderick Howard Work Phone: [facility] [place] Work Phone: Start: 05-14-2023 ambulatory Facility:[id number] Start: 05-14-2023 End: 05-14-2023 ambulatory DO Broderick Howard Work Phone: [facility] Work Phone: Start: 05-14-2023 End: 05-14-2023 Patient encounter procedure DO Broderick Howard Work Phone: [facility]-Pacemaker Check Start: 05-06-2023 End: 05-06-2023 ambulatory Bertram Sanders Other [employer] Other Start: 05-06-2023 Patient encounter procedure Bertram Sanders [facility] Start: 05-03-2023 End: 05-03-2023 ambulatory Broderick Howard Other [employer] Other Start: 05-03-2023 Office outpatient vi sit 15 minutes Broderick Howard [facility] Start: 05-03-2023 Telephone encounter Broderick SCHWARZ [facility] Start: 03-29-2023 End: 04-14-[address] BRODERICK HOWARD [employer] Other Start: 03-29-2023 Telephone encounter Broderick Dorantes [facility] Start: 03-25-2023 End: 03-25-2023 ambulatory Brodeirck Howard Other [employer] Other Start: 03-25-2023 Office outpatient vi sit 25 minutes Broderick Howard [facility] Start: 03-15-2023 End: 04-14-2023 ambulatory AGUILAR H FAWWAD Facility:H1 Start: 02-24-2023 Follow-up encounter Kitty Vidal MD Work Phone: [facility] Start: 02-24-2023 Pacemaker Remote F/U Kitty Vidal MD Work Phone: [facility] Department Start: 02-15-2023 End: 03-12-2023 ambulatory AGUILAR H FAWWAD Facility:H1 Start: 02-03-2023 End: 02-03-2023 ambulatory Bertram Sanders Other [employer] Other Start: 02-03-2023 Telephone encounter Bertram Sanders [facility] Start: 01-13-2023 End: 02-12-2023 ambulatory AGUILAR H FAWWAD Facility:H1 Start: 01-07-2023 End: 01-07-2023 ambulatory Bertram Sanders Other [employer] Other Start: 01-07-2023 Patient encounter procedure Bertram Sanders [facility] Start: 12-16-2022 End: 01-13-2023 ambulatory AGUILAR H FAWWAD Facility:H1 Start: 11-25-2022 End: 11-25-2022 ambulatory Broderick Howard Other [employer] Other Start: 11-25-2022 Follow-up encounter Kitty Vidal MD Work Phone: [facility] Start: 11-25-2022 Office outpatient vi sit 25 minutes Broderick Howard [facility] Start: 11-25-2022 Pacemaker Remote F/U Kitty Vidal MD Work Phone: [facility] Department Start: 11-23-2022 Patient encounter procedure Broderick Howard Other [employer] Other Start: 11-16-2022 End: 12-16-2022 ambulatory SHAIKH Guy MAGID Facility:H1 Start: 10-15-2022 Adult health examination Niki Blades Other [employer] Other Start: 10-15-2022 Gynecological examination normal Niki Blades Other [employer] Other Start: 10-15-2022 End: 11-15-2022 ambulatory SHAIKH Guy ARYANWWAD Facility:H1 Start: 09-15-2022 End: 10-14-2022 ambulatory AGUILAR H ARYANWMAYELIND Facility:H1 Start: 09-10-2022 End: 09-10-2022 Patient encounter procedure Alejandro Villar MD, PhD Work Phone: Neurology Comment on above: 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, intractable (HCC) Start: 08-26-2022 Follow-up encounter Kitty Vidal MD Work Phone: [facility] Start: 08-26-2022 Pacemaker Remote F/U Kitty Vidal MD Work Phone: [facility] Department Start: 08-16-2022 End: 09-14-2022 ambulatory [...] 01-06-2022 End: 01-06-2022 ambulatory Bertram Sanders Other [employer] Other Start: 01-06-2022 Patient encounter procedure Bertram Sanders [facility] Gastroenterology Start: 10-14-2020 End: 10-14-2020 Pre-procedure evaluation check Niki Blades Other [employer] Other Procedures Date Procedure Procedure Detail Performing [...] on above: Result Comment: PERF ORMED BY: [address] [place] [address] PATHOLOGIST GASOLINE TESTER LELE FALK M.D. Start: 08-03-2023 Excision of [...] Author Start: 06-29-2027 Diabetes Screening Diabetes Screenin [facility] Start: 01-04-2025 End: 01-04-2025 Patient encounter procedure 01/04/2025 2:00 PM EST Office Visit Neurology [address] [place] [address] Alejandro Villar MD, PhD [address] [place] [address] Follow up Neurology Comment on above: Follow up Start: 11-28-2024 DIABETES SCREEN DIABETES SCREEN [facility] Start: 11-28-2024 Diabetes Screening Diabetes Screenin [facility] Start: 09-05-2024 End: 09-05-2024 Patient encounter procedure 09/05/2024 1:30 PM EDT Office Visit Neurology [address] [place] [address] [place] [id number] [place] [address] Botox Neurology Comment on above: Botox Start: 08-31-2024 End: 08-31-2024 Patient encounter procedure 08/31/2024 10:00 AM EDT Office Visit Cardiology [address] [place] [address] [place] [address] [place], [place] [address] return in about 1 year (around 09/08/2024) Cardiology Comment on above: return in about 1 ye ar (around 09/08/2024) Start: 07-16-2024 Influenza vaccination Influenza Vacc ine (#1) [facility] Start: 06-29-2024 End: 06-29-2024 Patient encounter procedure 06/29/2024 1:00 PM EDT Office Visit Neurology [id number] [place] [address] Alejandro Villar MD, PhD [address] [place] [address] Follow Up-rescheduled from 06/22 Neurology Comment on above: Follow Up-reschedule d from 06/22 Start: 04-21-2024 Patient referral [facility] Work Phone: Start: 11-15-2023 Advance Directive Discussion Advance Directive Discussion [facility] Start: 08-05-2023 [facility] Start: 08-03-2023 Hospital admission [facility] Start: 08-03-2023 [facility] Start: 07-16-2023 Covid-19 Vaccine ( season) Covid-19 Vaccine ( season) [facility] Start: 07-16-2023 Influenza vaccination C [facility] Start: 11-15-2022 ADVANCE DIRECTIVE DISCUSSION ADVANCE DIRECTIVE DISCUSSION [facility] Start: 09-10-2022 End: 11-10-2022 levETIRAcetam [Mass/volume] in Serum or Plasma [facility] Work Phone: Comment on above: Expected: 09/10/2022 , Expires: 11/10/2022 Start: 09-10-2022 End: 11-10-2022 Zonisamide [Mass/volume] in Serum or Plasma [facility] Work Phone: Comment on above: Expected: 09/10/2022 , Expires: 11/10/2022 Start: 07-16-2022 Influenza vaccination INFLUENZA (#1) [facility] Start: 04-30-2022 Screening for malign ant neoplasm of colon [facility] Start: 11-15-2021 ADVANCE DIRECTIVE DISCUSSION ADVANCE DIRECTIVE DISCUSSION [facility] Start: 02-04-2019 Pneumococcal Vaccine : 65+ (2 - PCV) Pneumococcal Vaccine: 65+ (2 - PCV) [facility] Start: 02-04-2019 Pneumococcal Vaccine : 65+ (2 of 2 - PCV) Pneumococcal Vaccine: 65+ (2 of 2 - PCV) [facility] Start: 2015 BONE DENSITY BONE DENSITY [facility] Start: 2015 Bone Density Screening Bone Density Screening [facility] Start: 2015 PNEUMOCOCCAL: 65+ (1 - PCV) PNEUMOCOCCAL: 65+ (1 - PCV) [facility] Start: 2015 Screening for osteoporosis Bone Density Screening [facility] Start: 2010 RSV Vaccine (1 - 1-d ose 60+ series) RSV Vaccine (1 - 1-dose 60+ series) [facility] Start: 2000 SHINGRIX VACCINE (1 of 2) SHINGRIX VACCINE (1 of 2) [facility] Start: 1995 COLOGUARD (FIT-DNA) COLOGUARD (FIT-D NA) [facility] Start: 1995 Colonoscopy COLONOSCOPY [facility] Start: 1995 COLORECTAL CANCER SCREENING COLORECTAL CANCER SCREENING [facility] Start: [address] COLONOGRAPHY [facility] Start: 1995 FECAL OCCULT BLOOD FECAL OCCULT BLOO D [facility] Start: 1995 Lipid 1996 panel - S akila or Plasma Lipid Screening [facility] Start: 1995 Lipid panel [facility] Start: 1995 LIPID SCREEN LIPID SCREEN [facility] Start: 1995 Screening for malign ant neoplasm of colon [facility] Start: 1995 SIGMOIDOSCOPY SIGMOIDOSCOPY [facility] Start: 1990 Mammography [facility] Start: 1990 Screening for malign ant neoplasm of breast Mammogram Screening [facility] Start: 1969 Urine microalbumin profile [facility] Start: 1968 ANNUAL PCP TEAM MALE MODEL YESENIA DISEASE VISIT ANNUAL PCP TEAM CHRONIC DISEASE VISIT [facility] Start: 1968 BP CONTROLLED (<130/80) BP CONTROLLE D (<130/80) [facility] Start: 1968 HEPATITIS C SCREENING HEPATITIS C [facility] Start: 1968 Hepatitis C screening Hepatitis C [facility] Start: 1950 COVID-19 VACCINE (#1) COVID-19 VACCI NE (#1) [facility] End: 07-23-2023 ECG COMPLETE ECG COMPLETE ECG Routine Chronic fatigue 1 Occurrences starting 07/23/2022 until 07/23/2023 [facility] Work Phone: Comment on above: 1 Occurrences starti ng 07/23/2022 until 07/23/2023 ECG COMPLETE ECG COMPLETE ECG Routine Sinus node dysfunction (HCC) Cardiac pacemaker in situ Bradycardia Ordered: 09/08/2023 [facility] Work Phone: Comment on above: Ordered: 09/08/2023 MG Breast - bilatera l Screening [facility] Patient Education [facility] Work Phone: Patient referral [facility] Work Phone: Renal function 2000 panel - Serum or Plasma [facility] Immunizations Immunization Date Immunization Notes Care Provider [facility] 08-31-2023 influenza virus vaccine, unspecified formulation Randa Reilly MD Work Phone: [facility] 07-30-2022 influenza virus vaccine, split virus (incl. purified surface antigen) Niki Weeks Other [employer] Other 07-30-2022 influenza virus vaccine, unspecified formulation [facility] 09-10-2021 COVID-19 mRNA-1273 (Moderna) DO Broderick Howard Work Phone: [facility] 07-30-2021 influenza virus vaccine, split virus (incl. purified surface antigen) Niki Blades Other [employer] Other 07-30-2021 influenza virus vaccine, unspecified formulation [facility] 01-14-2021 COVID-19 mRNA-1273 (Moderna) DO [employer] Work Phone: [facility] 12-17-2020 COVID-19 mRNA-1278 (Moderna) DO [employer] Work Phone: [facility] 09-03-2020 influenza virus vaccine, split virus (incl. purified surface antigen) Niki Blades Other [employer] Other 09-03-2020 influenza virus vaccine, unspecified formulation [facility] 08-23-2019 influenza virus vaccine, split virus (incl. purified surface antigen) Niki Blades Other [employer] Other 08-23-2019 influenza virus vaccine, unspecified formulation [facility] 09-07-2018 influenza virus vaccine, split virus (incl. purified surface antigen) Niki Blades Other [employer] Other 09-07-2018 influenza virus vaccine, unspecified formulation [facility] 02-04-2018 pneumococcal polysaccharide vaccine, 23 valent Niki Blades Other [facility] Payers Date Payer Category Payer Self-pay [id number] 2021 Unknown [id number] 2015 Private Health Insurance [employer]OY JUAREZ MEDICARE SUPPLEMENT [id number] 2015-Present [phone] [address] [place] [id number] Indemnity [id number] 2013 Medicare [id number] 2008 Unknown [place] [id number] 1959 Medicare [id number] 1959 Medicare [id number] 2.16.840.1.483313.19 1950 Unknown [id number] 2.16.840.1.430057.3.579.2 .593 1950 Unknown [id number] 2.16.840.1.853727.3.579.2 .593 1950 Unknown [id number] 2.16.840.1.669522.3.579.2 .593 1950 Unknown [id number] 2.16.840.1.958054.3.579.2 .593 1950 Unknown [id number] 2.16.840.1.486004.3.579.2 .593 1950 Unknown [id number] 2.16.840.1.260368.3.579.2 .593 1950 Unknown [id number] 2.16.840.1.016439.3.579.2 .593 1950 Unknown [id number] 2.16.840.1.652027.3.579.2 .593 1950 Unknown [id number] 2.16.840.1.739791.3.579.2 .593 1950 Unknown [id number] 2.16.840.1.084442.3.579.2 .593 1950 Unknown [id number] 2.16.840.1.835239.3.579.2 .593 1950 Unknown [id number] 2.16.840.1.314403.3.579.2 .593 1950 Unknown [id number] 2.16.840.1.363239.3.579.2 .593 1950 Unknown [id number] 2.16.840.1.833052.3.579.2 .593 1950 Unknown [id number] 2.16.840.1.177746.3.579.2 .593 1950 Unknown [id number] 2.16.840.1.302861.3.579.2 .593 1950 Unknown [id number] 2.16.840.1.172379.3.579.2 .593 1950 Unknown [id number] 2.16.840.1.477436.3.579.2 .356 1950 Unknown [id number] 2.840.1.981642.3.579.2 .356 1950 Unknown [id number] 2.16840.1.648126.3.579.2 .196 1950 Unknown [id number] 2.840.1.501266.3.579.2 .196 1950 Unknown [id number] 2.840.1.318840.3.579.2 .1259 1950 Unknown [id number] 2.840.1.687336.3.579.2 .1259 1950 Unknown [id number] 2.16840.1.347125.3.579.2 .1259 1950 Unknown [id number] 2.16840.1.981444.3.579.2 .1259 Unknown [id number] 2.16.840.1.289443.3.579.2 .531 Unknown [id number] 2.16.840.1.893931.3.579.2 .531 Unknown [id number] 2.840.1.961436.3.579.2 .531 Social History Date Type Detail Facility Start: 09-10-2022 End: 09-08-2023 Sex Assigned At [facility] Start: 02-19-2011 End: 06-08-2024 Tobacco smoking status NHIS Never smoked tobacco [facility] Start: 02-19-2011 End: 09-10-2022 Tobacco use and exposure Smokeless tobacco non-user [facility] Start: 11-28-2021 End: 06-29-2024 Alcohol intake Current non-drinker of alcohol (finding) [facility] Start: 1950 Sex Assigned At Not on file C [facility] Start: 07-13-2022 End: 09-10-2022 Exposure to SARS-CoV-2 (event) Not sure [facility] Start: 1950 Sex Assigned At Female F [facility] Start: 09-10-2022 End: 09-08-2023 History of Social function [facility] Adult Depression Screening Assessment 2 [facility] Medical Equipment Procedure Code Equipment Code Equipment Origin al Text Equipment Identifier Dates Plate Bn 12mm Cm f Ti 2 H Lp - [id number] Start: 08-16-2015 Pin Crss Sd Scr 1.5x4mm - [id number] Start: 08-16-2015 [id number] [employer] [id number] Start: 05-22-2015 Goals Date Patient Goal Desired Activity /State Personal health goal Functional Status Date Assessment Result Facility 08-05-2023 Functional status Patient at Baseline [facility] Work Phone: Mental Status Date Assessment Result Facility 08-05-2023 Cognitive function Cognitive Sta tus Patient at Baseline [facility] Work Phone: Clinical Notes 01-24-2015 to 06-29-2024 Alejandro Villar MD, PhD - 06/29/2024 2:41 PM Tomasa Everett RN - 05/23/2024 11:54 AM Tomasa Everett RN - 05/23/2024 11:54 AM Randa Allen MD - 05/23/2024 11:12 AM EDT Note Date & Type Note Facility 06-29-2024 Note HNO ID: [id number] Author: ALEJANDRO VILLAR MD, PhD Service: ? Author Type: Physician Type: Progress Notes Filed: 07/03/2024 12:56 Note Text: [facility] Patient Name: Cassi Rodrigez Date of : 1950 ESTABLISHED EPILEPSY CLINIC NOTE 06/29/2024 1:00 PM Reason for Visit: Epilepsy Clinical Summary: Ms. Rodrigez is a 74 year old female seen in [facility]. Classification Summary HISTORY OF [...] and s/p lumbar laminectomy in 07/2023. 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 - levET (more content not included)... [facility] 06-29-2024 History of Presen t illness Narrative [facility] Patient Name: Cassi Rodrigez Date of : 1950 ESTABLISHED EPILEPSY CLINIC NOTE 06/29/2024 1:00 PM Reason for Visit: Epilepsy Clinical Summary: Ms. Rodrigez is a 74 year old female seen in [facility] Epilepsy [facility]. Classification Summary HISTORY OF [...] and s/p lumbar laminectomy in 07/2023. 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 At [facility] in Dec 2023, ZNS was increased [...] which included: preparing to see the patient [id number] patient care completing clinical documentation obtaining and/or reviewing separately obtained history performing a medically appropriate examination Alejandro Villar MD, PhD cc: Primary Care Physician: Broderick Howard, DO [address] [facility] [address] Referring: Patient: Ms. Cassi Rodrigez [id number] [facility] [address] documented in this encounter [facility] 05-23-2024 Nurse Note Patient name and confirmed. Patient states she would like to receive Botox treatment today. 2 vials of Botox A (100 units in each) reconstituted with 2.2 cc of normal saline in each vial. Botox drawn up into four, 1 cc syringes. Each syringe containing 50 units of Botox. Assisted by: Diann VARELA Botox, 2 vials: Lot # [id number] Exp 08 Lot # [id number] Botox handed to Dr. Reilly to administer and verified order. [facility] 05-23-2024 Nurse Note Patient name and confirmed. Patient states she would like to receive Botox treatment today. 2 vials of Botox A (100 units in each) reconstituted with 2.2 cc of normal saline in each vial. Botox drawn up into four, 1 cc syringes. Each syringe containing 50 units of Botox. Assisted by: Diann VARELA Botox, 2 vials: Lot # [id number] Exp 08 Lot # [id number] Botox handed to Dr. Reilly to administer and verified order. documented in this encounter [facility] 05-23-2024 Note HNO ID: [id number] Author: RANDA REILLY MD Service: ? Author [...] Injection Sites Muscle Fixed Site/Fixed Dose Bilat Jewelry Estimator 20 U divided in 2 sites Procerus [...] Total Units wasted: 0 Randa Reilly MD [facility] 05-23-2024 Procedure note BOTOX PROCEDURE NOTE [...] Injection Sites Muscle Fixed Site/Fixed Dose Bilat Jewelry Estimator 20 U divided in 2 sites Procerus [...] Total Units wasted: 0 Randa Reilly MD [facility] Neurological [place] [facility] 05-23-2024 Procedure note BOTOX PROCEDURE NOTE [...] procedure note Treatment # 1 Consent in [facility] Dilution: 5 units/0.1 ml ( 100 unit vial with 2 cc diluent or 200 unit vial with 4 cc diluent) Diluent: normal saline Indication: Chronic Intractable Migraine Right temporal metal plate with skin irregularity, no shunt Injection Sites Muscle Fixed Site/Fixed Dose Bilat Jewelry Estimator 20 U divided in 2 sites Procerus [...] Total Units wasted: 0 Randa Reilly MD [facility] documented in this encounter [facility] 03-15-2024 Note DUAL CHAMBER PACEMAK ER [...] Documents section. [facility] 03-07-2024 Note HNO ID: [id number] Author: RANDA REILLY MD Service: ? Author Type: Physician Type: Progress Notes Filed: 03/07/2024 13:16 Note Text: PROGRESS NOTE- HEADACHE MEDICINE SERVICE DATE: March 07, 2024 Location: [facility] Participants: patient, and provider HPI: [...] I spent at least 50% of the [id number] time in counseling, explanation of diagnosis, planning of further management, and answering all questions. Randa Reilly MD [facility] Neurological [facility] 03-07-2024 History of Presen t illness Narrative PROGRESS NOTE- HEADACHE MEDICINE SERVICE DATE: March 07, 2024 Location: [facility] Participants: patient, and provider HPI: [...] I spent at least 50% of the [id number] time in counseling, explanation of diagnosis, planning of further management, and answering all questions. Randa Reilly MD [facility] Neurological [place] documented in this encounter [facility] 12-23-2023 Instructions Lauren Otero APRN.NIC - 12/23/2023 9:42 AM EST To schedule with headache clinic (can schedule at [facility]): [phone] documented in this encounter [facility] 12-23-2023 History of Presen t illness Narrative [facility] CHIEF COMPLAINT: Patient presents [...] was referred to the headache clinic at [facility] in the past but at this [...] There is no focal weakness. PREVIOUS EVALUATIONS: [facility], 05/2015: Right Temporal Epilepsy Seizures: [...] associate with [facility]. Has history of untreated SEHLL. I discussed the risks, benefits and alternatives of the medical plan with the patient. Questions were answered. The patient agreed with the plan as discussed. ? PLAN: - increase ZNS to 300 mg qHS - continue LEV 750 mg BID - discuss SHELL treatment/ possible sleep study with PCP, will let us know if she decides to pursue at [facility] - she needs for spine doctor, plans to talk to PCP first but will let us know if she needs referral to someone here at [facility] - ENT referral as needed for [...] MD, PhD in collaboration with Lauren Otero APRN.BONE CHAR OPERATOR December 23, 2023 documented in this encounter [facility] 12-23-2023 Note HNO ID: [id number] Author: ALEJANDRO VILLAR MD, PhD Service: ? Author Type: Physician Type: Progress Notes Filed: 12/23/2023 13:37 Note Text: [facility] CHIEF COMPLAINT: Patient presents [...] was referred to the headache clinic at [facility] in the past but at this [...] There is no focal weakness. PREVIOUS EVALUATIONS: 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 Intermittent Slow, Regional Right temporal Ictal (more content not included)... [facility] 11-24-2023 Evaluation note Encounter Date Diagnosis Assessment Notes Nov, Acute non-recurrent maxillary sinusitis (ICD-10 - J01.00) Instructed to use Robitussin or Mucinex for cough, saline or Flonase NS for congestion, Tylenol for pain and fever. Nov, Primary hypertension (ICD-10 - I10) Increased risk for more serious, prolonged illness. [facility] Other [id number] Miscellaneous Notes* Telephone Encounter - Mirian Bell APRN.CNP - 09/13/2023 1:53 PM EDT Thank you reviewed scan documents. Mirian Bell APRN.NIC * Telephone Encounter - Brenda Hodges RN - 09/13/2023 7:58 AM EDT Received medical records from [facility] and scanned into chart for review. documented in this encounterMer[facility]23 Miscellaneous Notes* Telephone Encounter - Daniel [...] Please E-Scribe Caller Contact Number: Pharmacy Name: [facility] Pharmacy Number: [phone] Generic/ brand: 30 or 90 day supply requested: 90 Last appointment: 09/10/22 Next Appointment: 12/09/[address] Villar documented in this encounterMercy [facility] Hospital10-25-2023 NoteHNO ID: [id number] Author: Mirian Bell APRN.CNP Service: ? Author Type: Nurse Practitioner Type: Progress Notes Filed: 09/08/2023 3:29 PM Note Text: [facility] Department of Cardiovascular Medicine SECTION OF CARDIAC PACING and ELECTROPHYSIOLOGY OUTPATIENT VISIT DATE September 08, 2023 OUTPATIENT VISIT TYPE ESTABLISHED PRIMARY CARE PHYSICIAN: Broderick Howard (Zack) [address] [place] [address] CHIEF COMPLAINT: follow up device management HISTORY [...] right leg DVT (2012), seizure, SHELL, IBS, long-term anticoagulation. Moderate functional capacity (active with ADL, [...] in INCHES 64 in. (more content not included)...[facility] 09-08-2023 Instructions* Patient Instructions* Mirian Bell APRN.CNP - 09/08/2023 3:21 PM EDT Please schedule for device check & in one year Please have patient sign release of medical labs from [facility] had labs last month documented in this encounterMercy Health [facility] Hospital10-25-2023 History of Present illness Narrative* Mirian Bell APRN.CNP - 09/08/2023 2:30 PM EDT Images from the original note were not included. 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 Moderate functional capacity (active with ADL, [...] 09-08-2023 Dual chambered pacer EVALUATION PRESENTS FOR: BONE CHAR OPERATOR visit PRESENTING EGM: AP/VS UNDERLYING RHYTHM: [...] 4. Annual labs, I will obtain from [facility] she had last month Follow up appointment: Dr. Garner & device check in one year I spent 25 to 30 minutes in the visit, with more than 50% of the total roze-lw-dmej time of the visit in counseling / coordination of care. CONTACT INFORMATION: Mirian Bell APRN.NIC, 09/08/23 [facility] Second Floor [address] [facility] [place] [address] documented in this encounterMercy Health Anderson Hospital10-11-2023 Evaluation note* Encounter Date Diagnosis Assessment Notes Treatment Notes Treatment Clinical Notes Aug, Lumbar stenosis with neurogenic claudication (ICD-10 - M48.062) [facility] [employer] Other 10-02-2023 Evaluation note* Encounter Date Diagnosis Assessment Notes Treatment Notes Treatment Clinical Notes Aug, Lumbar stenosis with neurogenic claudication (ICD-10 - M48.062) [facility] Other 09-28-2023 Evaluation note* Encounter Date Diagnosis Assessment Notes Treatment Notes Treatment Clinical Notes Jul, Lumbar stenosis with neurogenic claudication (ICD-10 - M48.062) [facility] Other 09-20-2023 Progress note Author Niki Weeks [facility] August 04, 2023 7:57am Note Date/Time August 04, 2023 7:57am [facility] [address] [place] [address] Neurosurgery Progress Note Signed Patient: Cassi Rodrigez MR#: [id number] : 1950 Acct:[id number] Age/Sex: 73 / F Adm Date: 3 Loc: 4N Room: 3L5513-5 Type: REG SDC Attending Dr: Niki Weeks [...] % (Auto) 91.6, Lymph % (Auto) 4.4, [place] % (Auto) 4.0, Eos % (Auto) 0.0, Baso % (Auto) 0.0, Nucleat RBC Rel Count 0.1, Neut # (Auto) 10.4 H, Lymph #(Auto) 0.5 L, [place] # (Auto) 0.5, Eos # (Auto) 0.0, [...] signed by Niki Weeks MD> 08/04/[address] [facility] Work Phone: 1(701) 601-793408-23-2023 Evaluation note* Encounter Date Diagnosis Assessment Notes Treatment Notes Treatment Clinical Notes Jun, Lumbar stenosis with neurogenic claudication (ICD-10 - M48.062) [facility] Other 06-22-2023 Evaluation note* Encounter Date Diagnosis [...] will continue with this therapy without change. [facility] Other 06-19-2023 Evaluation note* Encounter Date Diagnosis Assessment Notes Treatment Notes Treatment Clinical Notes Apr, Lumbosacral spondylosis with radiculopathy (ICD-10 - M47.27) [facility] Other 06-19-2023 Evaluation note* Encounter Date Diagnosis [...] until MRI completed MRI being rescheduled [facility] due to PM Apr, Stage 3b chronic kidney disease (ICD-10 - N18.32) The patient is instructed on adequate control of hypertension and diabetes, if appropriate. They are also educated on the associated risks of NSAIDs and PPI use with kidney disease. They were instructed on adequate fluid balance and to avoid dehydration. Apr, History of lumbar fusion (ICD-10 - Z98.1) [facility] Other 05-15-2023 Evaluation note* Encounter Date Diagnosis Assessment Notes Treatment Notes Treatment Clinical Notes March, Lumbosacral spondylosis with radiculopathy (ICD-10 - M47.27) [facility] Other 05-11-2023 Evaluation note* Encounter Date Diagnosis [...] use, the patient reduces the risk for PR, CVA, HTN, cardiac dysrhythmias and sudden cardiac [...] Other Stable w/o breakthrough Sz. 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 Continue surveillance w/ Five minutes Other 2023 Evaluation note* Encounter Date Diagnosis Assessment Notes Treatment Notes Treatment Clinical Notes Jan, Nausea (ICD-10 - R11.0) [facility] Other 02-23-2023 Evaluation note* Encounter Date Diagnosis Assessment Notes Treatment Notes Treatment Clinical Notes Dec, Nausea (ICD-10 - R11.0) Increase Amitriptyline to 15mg at bedtime Dec, Constipation (ICD-10 - K59.00) Start Linzess 72mcg daily Pt to call if symptoms worsen or return Follow up in 4 months [facility] Other 01-11-2023 Evaluation note* Encounter Date Diagnosis [...] use, the patient reduces the risk for PR, CVA, HTN, cardiac dysrhythmias and sudden cardiac [...] to trial Amitiza and discuss w/ GI [facility] Other 10-27-2022 History of Present illness Narrative* Lauren Otero APRN.NIC - 09/10/2022 1:53 PM EDT [facility] CHIEF COMPLAINT: Patient presents [...] She was referred to the headacheclinic at [facility] in the past but at this [...] There is no focal weakness. PREVIOUS EVALUATIONS: [facility], 05/2015: Right Temporal Epilepsy Seizures: [...] by Dr. Alejandro Villar. documented in this encounterMercy [facility] Hospital09-08-2022 History of Present illness Narrative* Kitty Vidal MD - 07/23/2022 10:00 AM EDT Images from the original note were not included. [facility] Department of Cardiovascular Medicine SECTION OF CARDIAC PACING and ELECTROPHYSIOLOGY OUTPATIENT VISIT DATE July 23, 2022 OUTPATIENT VISIT TYPE ESTABLISHED PRIMARY CARE PHYSICIAN: Broderick Howard MD ([facility]) [address] [place] [address] CHIEF COMPLAINT: Pacemaker management HISTORY OF PRESENT [...] Lymph 1.00 - 4.00 k/uL 0.93 (L) [place]% % 7.7 Abs [place] <0.87 k/uL 0.32 Eosin% % 5.3 Abs [...] Kitty Vidal MD Electrophysiology documented in this encounterMercy [facility] Hospital02-22-2022 Evaluation note* Encounter Date Diagnosis Assessment Notes Treatment Notes Treatment Clinical Notes Dec, Nausea (ICD-10 - R11.0) PATIENT STATES THAT THIS HAS IMPROVED. PATIENT TO CONTINUE ON THE AMITRIPTYLINE DOSE AT THIS TIME. [facility] Other 03-12-2015 History of Past illness Narrative* Problem Noted Date Resolved Date Seizure 01/24/2015 06/21/2018 documented as of this encounter (statuses as of 07/23/2022) [facility] of Past illness Narrative* Problem Noted Date Resolved Date Seizure 01/24/2015 06/21/2018 documented as of this encounter (statuses as of 08/26/2022) [facility] of [facility] illness Narrative* Problem Noted Date Resolved Date Seizure 01/24/2015 06/21/2018 documented as of this encounter (statuses as of 09/10/2022) [facility] illness Narrative* Problem Noted Date Resolved Date Seizure 01/24/2015 06/21/2018 documented as of this encounter (statuses as of 11/26/2022) [address]12-2015 History of Past illness Narrative* Problem Noted Date Resolved Date Seizure 01/24/2015 06/21/2018 documented as of this encounter (statuses as of 02/25/2023) [address]2015 History of Past illness Narrative* Problem Noted Date Diagnosed Date Resolved Date Seizure 01/24/2015 06/21/2018 documented as of this encounter (statuses as of 06/17/2023) [address]2015 History of Past illness Narrative* Problem Noted Date Diagnosed Date Resolved Date Seizure 01/24/2015 06/21/2018 documented as of this encounter (statuses as of 09/08/2023) [address]2015 History of Past illness Narrative* Problem Noted Date Diagnosed Date Resolved Date Seizure 01/24/2015 06/21/2018 documented as of this encounter (statuses as of 09/09/2023) [address]2015 History of Past illness Narrative* Problem Noted Date Diagnosed Date Resolved Date Seizure 01/24/2015 06/21/2018 documented as of this encounter (statuses as of 09/14/2023) [address]2015 History of Past illness Narrative* Problem Noted Date Diagnosed Date Resolved Date Seizure 01/24/2015 06/21/2018 documented as of this encounter (statuses as of 09/14/2023) [address]2015 History of Past illness Narrative* Problem Noted Date Diagnosed Date Resolved Date Seizure 01/24/2015 06/21/2018 documented as of this encounter (statuses as of 12/23/2023) [facility] HospitalDis[facility] summary Author Niki Weeks [facility] August 05, 2023 8:09am Note Date/Time August 05, 2023 8:09am [facility] [address] [place] [address] Discharge Summary Signed Patient: Cassi Rodrigez MR#: [id number] : 1950 Acct:[id number] Age/Sex: 73 / F Adm Date: 3 Loc: 4N Room: 0Y2282-[address]: Niki Weeks MD Copies to: [...] % (Auto) 77.1, Lymph % (Auto) 11.8, [place] % (Auto) 9.2, Eos % (Auto) 1.7, Baso % (Auto) 0.2, Nucleat RBC Rel Count 0.4, Neut # (Auto) 5.6, Lymph # (Auto) 0.9 L, [place] # (Auto) 0.7, Eos # (Auto) 0.1, [...] signed by Niki Weeks MD> 08/05/23 0809 [facility] Work Phone: Evaluation note* Diagnosis Chronic fatigue- Primary Other malaise and fatigue documented in this encounter [facility] note* Diagnosis Partial epilepsy with impairment of consciousness, intractable (HCC) Localization-related (focal) (partial) epilepsy and epileptic syndromes with complex partial seizures, with intractable epilepsy documented in this encounter [facility] noteNo assessment information availableUniversity [facility]als St. [facility] Work Phone: Evaluation noteNo InformationNort infibond Other evaluation note* Diagnosis Onset Date Resolution Status Lumbar stenosis with neurogenic claudication acute [facility] Work Phone: Evaluation note* Diagnosis Sinus node dysfunction (HCC)- Primary Sinoatrial node dysfunction Cardiac pacemaker in situ Bradycardia Other specified cardiac dysrhythmias [facility] Diagnosis Partial epilepsy with impairment of consciousness, intractable (HCC) Localization-related (focal) (partial) epilepsy and epileptic syndromes with complex partial seizures, with intractable epilepsy documented [facility] this encounter [facility]* Diagnosis Pacemaker [Z95.0]- Primary Cardiac pacemaker in situ documented in this encounter [facility]* Diagnosis Intractable 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 aura and without status migrainosus- Primary Chronic migraine without aura, with intractable migraine, so stated, without mention of status migrainosus documented in this encounter [facility]* Diagnosis Intractable 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 aura and without status migrainosus- Primary Chronic migraine without aura, with intractable migraine, so stated, without mention of status migrainosus Cervicalgia SHELL (obstructive sleep apnea) Obstructive sleep apnea (adult) (pediatric) documented in this encounter [facility]* Diagnosis Onset Date Resolution Status Hypertension acute Lumbar stenosis with neurogenic claudication acute [facility] Work Phone: Evaluation note* Diagnosis Onset Date Resolution Status Hypertension acute Lumbar stenosis with neurogenic claudication acute Age-related osteoporosis wit hout current pathological fracture acute Chronic kidney disease acute Hypertension acute Lumbosacral spondylosis with radiculopathy acute Obstructive sleep apnea acwy e [facility] Work Phone: Evaluation note* Diagnosis Intractable 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 aura and without status migrainosus- Primary Chronic migraine without aura, with intractable migraine, so stated, without mention of status migrainosus documented in this encounter [facility]* Diagnosis Onset Date Resolution Status Age-related osteoporosis wit hout current pathological fracture acute Chronic kidney disease acute Hypertension acute Lumbosacral spondylosis with radiculopathy acute Obstructive sleep apnea acut e Arthropathy of right hip acu te Greater trochanteric bursitis of both hips acute History of lumbar surgery ac [place] Pain of both sacroiliac joints acute [facility] Work Phone: Evaluation note* Diagnosis Onset Date Resolution Status Age-related osteoporosis wit hout current pathological fracture acute Chronic kidney disease acute Hypertension acute Lumbosacral spondylosis with radiculopathy acute Obstructive sleep apnea acut e Arthropathy of right hip acu te Greater trochanteric bursitis of both hips acute History of lumbar surgery [place] Pain of both sacroiliac joints acute Anemia of renal disease acut e Chronic kidney disease acute [id number] acute Leukopenia acute Pancreatic cancer acute Secondary hyperparathyroidism acute Vitamin D deficiency acute [facility] Work Phone: Evaluation note* Diagnosis Onset Date Resolution Status Age-related osteoporosis wit hout current pathological fracture acute Chronic kidney disease acute Hypertension acute Lumbosacral spondylosis with radiculopathy acute Obstructive sleep apnea acut e Arthropathy of right hip acu te Greater trochanteric bursitis of both hips acute History of lumbar surgery ac [place] Pain of both sacroiliac joints acute Anemia of renal disease acut e CKD (chronic kidney disease) stage 4, GFR 15-29 ml/min acute [id number] acute Leukopenia acute Secondary hyperparathyroidism acute Age-related osteoporosis wit hout current pathological fracture acute Chronic kidney disease acute Gastroesophageal reflux dise ase with esophagitis without hemorrhage acute History of pancreatic cancer acute Hypertension acute Lumbar stenosis with neurogenic claudication acute Major depression acute Medicare annual wellness visit, subsequent noneactive Screening mammogram for breast cancer noneactive [facility] Work Phone: Evaluation note* Diagnosis Focal epilepsy with impairment of consciousness, intractable (HCC)- Primary Localization-related (focal) (partial) epilepsy and epileptic syndromes with simple partial seizures, with intractable epilepsy Partial epilepsy with impairment of consciousness, intractable (HCC) Localization-related (focal) (partial) epilepsy and epileptic syndromes with complex partial seizures, with intractable epilepsy documented in this encounter [facility]* Diagnosis Onset Date Resolution Status Arthropathy of right hip acu te Greater trochanteric bursitis of both hips acute History of lumbar surgery ac [place] Pain of both sacroiliac joints acute Anemia of renal disease acut e CKD (chronic kidney disease) stage 4, GFR 15-29 ml/min acute [id number] acute Leukopenia acute Secondary hyperparathyroidism acute Age-related osteoporosis wit hout current pathological fracture acute Chronic kidney disease acute Gastroesophageal reflux dise ase with esophagitis without hemorrhage acute History of pancreatic cancer acute Hypertension acute Lumbar stenosis with neurogenic claudication acute Major depression acute Medicare annual wellness visit, subsequent noneactive Screening mammogram for breast cancer noneactive [facility] Work Phone: History general Narrative - Reported* Type Description Date Surgical History back surgery-2 Surgical History cervical fusion Surgical History cholecystectomy Surgical History whipple procedure 2011 Surgical History appendectomy Surgical History hammer toe Surgical History rotator cuff-left Surgical History temporal lumpectomy Hospitalization History see surgical Five minutes Other Hisvvqc general Narrative - Reported* Type Description Date [...] Essential hypertension Medical History Current use of armored car messenger anticoa gulation Medical History History of pancreatic [...] temporal lumpectomy Hospitalization History see surgical hx Five minutes Other His[facility]ex general Narrative - Reported* Type Description Date [...] Essential hypertension Medical History Current use of armored car messenger anticoa gulation Medical History History of pancreatic [...] Port removal Hospitalization History see surgical hx Five minutes Other History general Narrative - Reported* Type [...] Obstructive sleep apnea Medical History [facility] exam with routine gynecological [...] Essential hypertension Medical History Current use of long-term anticoa gulation Medical History History of pancreatic [...] L4-5 07/2023 Hospitalization History see surgical hx Five minutes Other Hospital Discharge instructions Additional Instructions Eat a well balanced dietMagruder Hospital Work Phone: Hospital Discharge instructionsAmbulatory Orders* Referral to Orthopedic Surgery Location: None Selected [facility] Work Phone: Progress note Author Niki Weeks [facility] August 05, 2023 8:00am Note Date/Time August 05, 2023 8:00am [facility] [address] [place] [address] Neurosurgery Progress Note Signed Patient: Cassi Rodrigez MR#: [id number] : 1950 Acct:[id number] Age/Sex: 73 / F Adm Date: 3 Loc: 4N Room: [address] [place] [address] Type: [facility] Attending Dr: Niki Weeks MD [...] % (Auto) 77.1, Lymph % (Auto) 11.8, [place] % (Auto) 9.2, Eos % (Auto) 1.7, Baso % (Auto) 0.2, Nucleat RBC Rel Count 0.4, Neut # (Auto) 5.6, Lymph # (Auto) 0.9 L, [place] # (Auto) 0.7, Eos # (Auto) 0.1, [...] signed by Niki Weeks MD> 08/05/[address] [facility] Work Phone: [facility] for referral (narrative)* Outpatient Procedure (Routine) - Closed Specialty Diagnoses / Procedures Referred By Contac t Referred To Contact [facility] Diagnoses Chronic fatigue Procedures ECG COMPLETE ECG ROUTINE ECG W/LEAST 12 LDS W/I&[place] [address] [place] [address] [facility] [place] [address] [place] [address] Referral ID Status Reason Start Date Expiration Date V isits Requested Visits Authorized [id number] Closed Auto-Generate d Referral 07/23/2022 07/23/2023 1 1 [facility] for referral (narrative)* Outpatient Procedure (Routine) - Pending Review Specialty Diagnoses / Procedures Referred By Contac t Referred To Contact [facility] Diagnoses Sinus node dysfunction (HCC) Cardiac pacemaker in situ Bradycardia Procedures ECG COMPLETE ECG ROUTINE ECG W/LEAST 12 LDS W/I&R Mirian Bell, CONNIE.BONE CHAR OPERATOR [address] [place] [address] [facility] [place] [address] [place] [address] Referral ID Status Reason Start Date Expiration Date Visits Requested Visits Authorized [id number] Pending Review Auto-Generat ed Referral 3 09/07/2024 1 1 [facility] Summary Purpose Family History No Family [...] Chief Complaint Cough , Drainage For Weeks [phone] BACK ISSUES Chief Complaint BACK ISSUES Amb [...] Anemia of renal disease Chronic kidney disease [id number] Leukopenia Pancreatic cancer Secondary hyperparathyroidism Vitamin D [...] kidney disease) stage 4, GFR 15-29 ml/min [id number] Leukopenia Secondary hyperparathyroidism Age-related osteoporosis without current [...] kidney disease) stage 4, GFR 15-29 ml/min [id number] Leukopenia Secondary hyperparathyroidism Age-related osteoporosis without current pathological fracture Chronic kidney disease Gastroesophageal reflux disease with esophagitis without hemorrhage History of pancreatic cancer Hypertension Lumbar stenosis with neurogenic claudication Major depression Medicare annual wellness visit, subsequent Screening mammogram for breast cancer Reason for Referral Specialty Diagnoses / Procedures Referred By Saturnino t Referred To Contact [facility] [place] Diagnoses Cervicalgia Procedures CONSULT TO [facility] OFFICE/OUTPATIENT [facility] [address] [place] [address] [place] [address] Referral ID Status Reason Start Date Expiration Date Visits Requested Visits Authorized [id number] Authorized PCP Requested Referral 03/07/2024 03/07/2025 1 1 Specialty Diagnoses / Procedures Referred By Contac t Referred To Contact Diagnoses SHELL (obstructive sleep apnea) Procedures CONSULT TO SLEEP MEDICINE - ADULT OFFICE/OUTPATIENT [facility] [address] [place] [address] [place] [address] Referral ID Status Reason Start Date Expiration Date Visits Requested Visits Authorized [id number] Authorized PCP Requested Referral 03/07/2024 03/07/2025 1 1 Specialty Diagnoses / Procedures Referred By Contac t Referred To Contact [facility] Diagnoses Intractable 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 aura and without status migrainosus Procedures CONSULT TO [facility] CLINIC OFFICE/OUTPATIENT [facility] 60 MINUTES Lauren Otero, CONNIE.BONE CHAR OPERATOR [address] [place] [id number] Neur [facility] [address] [place] [id number] Referral ID Status Reason Start Date Expiration Date Visits Requested Visits Authorized [id number] Authorized PCP Requested Referral 12/23/2023 12/22/2024 1 [...] migrainosus Procedures CONSULT TO HEADACHE CLINIC OFFICE/OUTPATIENT [facility] 60 MINUTES Lauren Otero, CONNIE.BONE CHAR OPERATOR [address] [id number] Neur Headache Main [address] [place] [id number] Referral ID Status Reason Start Date Expiration Date V isits Requested Visits Authorized [id number] Closed PCP Requested Referral 12/23/2023 12/22/2024 1 1 Reason Comments Established Patient botox Specialty Diagnoses / Procedures Referred By Contac t Referred To Contact ADULT NEUROLOGY Diagnoses Chronic migraine without aura, intractable, without status migrainosus Procedures BOTULINUM TOXIN A PER 1 UNIT CHEMODERVATE FACIAL/TRIGEM/[place] [address] [id number] [place] [address] Neur Adult Frvw [address] [place] [id number] Referral ID Status Reason Start Date Expiration Date V isits Requested Visits Authorized [id number] Authorized 03/13/2024 03/13/2025 4 4 Reason Comments Epilepsy Source Comments (unrecognize d section and content) In the event this informatio n is protected by the Federal Confidentiality of Alcohol and Drug Abuse Patient Records regulations: The Federal rules restrict any use of the information to criminally investigate or prosecute any alcohol or drug abuse patient.[facility] HospitalIn the event this information is protected by the Federal Confidentiality of Alcohol and Drug Abuse Patient Records regulations: The Federal rules restrict any use of the information to criminally investigate or prosecute any alcohol or drug abuse patient.[facility] HospitalIn the event this information is protected by the Federal Confidentiality of Alcohol and Drug Abuse Patient Records regulations: The Federal rules restrict any use of the information to criminally investigate or prosecute any alcohol or drug abuse patient.[facility] HospitalIn the event this information is protected by the Federal Confidentiality of Alcohol and Drug Abuse Patient Records regulations: The Federal rules restrict any use of the information to criminally investigate or prosecute any alcohol or drug abuse patient.[facility] HospitalIn the event this information is protected by the Federal Confidentiality of Alcohol and Drug Abuse Patient Records regulations: The Federal rules restrict any use of the information to criminally investigate or prosecute any alcohol or drug abuse patient.[facility] HospitalIn the event this information is protected by the Federal Confidentiality of Alcohol and Drug Abuse Patient Records regulations: The Federal rules restrict any use of the information to criminally investigate or prosecute any alcohol or drug abuse patient.[facility] HospitalIn the event this information is protected by the Federal Confidentiality of Alcohol and Drug Abuse Patient Records regulations: The Federal rules restrict any use of the information to criminally investigate or prosecute any alcohol or drug abuse patient.[facility] HospitalIn the event this information is protected by the Federal Confidentiality of Alcohol and Drug Abuse Patient Records regulations: The Federal rules restrict any use of the information to criminally investigate or prosecute any alcohol or drug abuse patient.[facility] HospitalIn the event this information is protected by the Federal Confidentiality of Alcohol and Drug Abuse Patient Records regulations: The Federal rules restrict any use of the information to criminally investigate or prosecute any alcohol or drug abuse patient.[facility] HospitalIn the event this information is protected by the Federal Confidentiality of Alcohol and Drug Abuse Patient Records regulations: The Federal rules restrict any use of the information to criminally investigate or prosecute any alcohol or drug abuse patient.[facility] HospitalIn the event this information is protected by the Federal Confidentiality of Alcohol and Drug Abuse Patient Records regulations: The Federal rules restrict any use of the information to criminally investigate or prosecute any alcohol or drug abuse patient.[facility] HospitalIn the event this information is protected by the Federal Confidentiality of Alcohol and Drug Abuse Patient Records regulations: The Federal rules restrict any use of the information to criminally investigate or prosecute any alcohol or drug abuse patient.[facility] HospitalIn the event this information is protected by the Federal Confidentiality of Alcohol and Drug Abuse Patient Records regulations: The Federal rules restrict any use of the information to criminally investigate or prosecute any alcohol or drug abuse patient.[facility] HospitalIn the event this information is protected by the Federal Confidentiality of Alcohol and Drug Abuse Patient Records regulations: The Federal rules restrict any use of the information to criminally investigate or prosecute any alcohol or drug abuse patient.[facility] HospitalIn the event this information is protected by the Federal Confidentiality of Alcohol and Drug Abuse Patient Records regulations: The Federal rules restrict any use of the information to criminally investigate or prosecute any alcohol or drug abuse patient.[facility] Care Teams (unrecognized sec tion and [...] March 09, 2024 End: March 09, 2024 Pit Worker Power Shovel Relationship Specialty Start Date End Date Broderick Howard DO [address] [place] [address] PCP - General Internal Medicine 09/21/18 Kitty Valente MD [address] [place] [address] Primary Staff Physician Cardiology 01/31/19 Pit Worker Power Shovel Relationship Specialty Start Date End Date Broderick Howard, DO [address] [facility] [place] [place] [address] PCP - General Internal Medicine 09/21/18 Kitty Valente MD [address] [place] [address] Primary Staff Physician Cardiology 01/31/19 Pit Worker Power Shovel Relationship Specialty Start Date End Date Broderick Howard, DO [address] [facility] [place] [address] PCP - General Internal Medicine 09/21/18 Kitty Valente MD [address] [facility] [place] [place] [address] Primary Staff Physician Cardiology 01/31/19 Pit Worker Power Shovel Relationship Specialty Start Date End Date Broderick Howard, DO [address] [facility] [place] [address] PCP - General Internal Medicine 09/21/18 Kitty Valente MD [address] [place] [address] Primary Staff Physician Cardiology 01/31/19 Pit Worker Power Shovel Relationship Specialty Start Date End Date Broderick Howard, DO [address] [facility] [address] PCP - General Internal Medicine 09/21/18 Kitty Valente MD [address] [place] [address] Primary Staff Physician Cardiology 01/31/19 Team Status: Inactive Member Role Status Dates Broderick Howard DO Primary Care Provider, Attending Pr ovider Active Pit Worker Power Shovel Relationship Specialty Start Date End Date Broderick Howard, [address] [facility] [place] [address] PCP - General Internal Medicine 09/21/18 Kitty Valente MD [address] [place] [address] Primary Staff Physician Cardiology 01/31/19 Team Status: Inactive Member Role Status Riccardo Howard DO Primary Care Provider Active Niki Weeks MD Attending Provider Active Pit Worker Power Shovel Relationship Specialty Start Date End Date Broderick Howard DO [address] [place] [address] PCP - General Internal Medicine 09/21/18 Kitty Valente MD [address] [place] [address] Primary Staff Physician Cardiology 01/31/19 Pit Worker Power Shovel Relationship Specialty Start Date End Date Broderick Howard DO [address] [id number] PCP - General Internal Medicine 09/21/18 Kitty Valente MD [address] [place] [address] Primary Staff Physician Cardiology 01/31/19 Pit Worker Power Shovel Relationship Specialty Start Date End Date Broderick Howard DO [address] [place] [address] PCP - General Internal Medicine 09/21/18 Kitty Valente MD [address] [place] [address] Primary Staff Physician Cardiology 01/31/19 Pit Worker Power Shovel Relationship Specialty Start Date End Date Broderick Howard DO [address] [place] [address] PCP - General Internal Medicine 09/21/18 Kitty Valente MD [address] [place] [address] Primary Staff Physician Cardiology 01/31/19 Pit Worker Power Shovel Relationship Specialty Start Date End Date Broderick Howard DO [address] [place] [address] PCP - General Internal Medicine 09/21/18 Kitty Valente MD [address] [facility] [place] [place] [address] Primary Staff Physician Cardiology 01/31/19 Team Status: Inactive Member Role Status Dates Broderick Howard DO Attending Provider Active Sta rt: November 24, 2023 End: November 24, 2023 Team Status: Inactive Member Role Status Dates Broderick Howard DO Primary Care Provide r, Attending Provider Active Start: February 09, 2024 End: February 09, 2024 Pit Worker Power Shovel Relationship Specialty Start Date End Date Broderick Howard DO [address] [place] [address] PCP - General Internal Medicine 09/21/18 Kitty Valente MD [address] [place] [address] Primary Staff Physician Cardiology 01/31/19 Team Status: Active Member Role Status Dates Broderick Howard DO Primary Care Provide r, Attending Provider Active Start: February 10, 2024 Team Status: Active Member Role Status Dates Broderick Howard DO Primary Care Provider Active Start: February 15, 2024 HERSON Golden Attending Provider Active St art: February 15, 2024 Pit Worker Power Shovel Relationship Specialty Start Date End Date Broderick Howard DO [address] [id number] PCP - General Internal Medicine 09/21/18 Kitty Valente MD [address] [facility] [place] [place] [address] Primary Staff Physician Cardiology 01/31/19 Pit Worker Power Shovel Relationship Specialty Start Date End Date Broderick Howard DO [address] [place] [address] PCP - General Internal Medicine 09/21/18 Kitty Valente MD [address] [place] [address] Primary Staff Physician Cardiology 01/31/19 Team Status: Inactive Member Role Status Dates Broderick Howard DO Primary Care Provide r, Attending Provider Active Start: June 27, 2024 End: June 27, 2024 Pit Worker Power Shovel Relationship Specialty Start Date End Date Broderick Howard DO [address] [place] [address] PCP - General Internal Medicine 09/21/18 Kitty Valente MD [address] [place] [address] Primary Staff Physician Cardiology 01/31/19 Team Status: [...] section and content) DATE CREATED AUTHOR 07/24/2022 [facility] DATE CREATED AUTHOR AUTHOR'S ORGANIZ ATION 04/23/2023 [facility] DATE CREATED AUTHOR AUTHOR'S ORGANIZ ATION 06/11/2023 [facility] DATE CREATED AUTHOR AUTHOR'S ORGANIZ ATION 09/14/2023 [facility] DATE CREATED AUTHOR AUTHOR'S ORGANIZ ATION 06/10/2024 [facility] DATE CREATED AUTHOR AUTHOR'S ORGANIZ ATION 06/12/2024 [facility] DATE CREATED AUTHOR AUTHOR'S ORGANIZ ATION 07/04/2024 [facility] DATE CREATED AUTHOR AUTHOR'S ORGANIZ ATION 07/12/2024 [facility] Goals (unrecognized section and content) [...] BE BASED ON THE PRIMARY CLINICAL RECORDS. [facility]. provides no warranty or guarantee of the accuracy or completeness of information in this document.
--- NOTE | 2024-08-30 18:06 | US_ITS ---
[address] [id number] Patient Name: BREANNA MCCORMICK MRN: [id number] date: 1950 Sex: F Assigned Patient Location: [facility] Current Patient Location: Accession/Order Number: [id number] Exam Date: 08/30/2024 18:10 Report Date: 08/31/2024 07:20 At the request of: RALPH HOWARD Procedure: US venous doppler LE RT EXAM: US venous doppler LE RT HISTORY: SWELLING OF RIGHT LOWER EXTREMITY M79.89 COMPARISON: None. TECHNIQUE: Grayscale, color and Doppler FINDINGS: Region: Right leg Thrombus: None Flow: Normal Augmentation: Normal Compressibility: Normal US/US venous doppler LE RT IMPRESSION: No deep or superficial vein thrombus in the right leg Electronically authenticated by: EBEN HUSSEIN Date: 08/31/2024 07:20
== END 2024-08-30 17:12 | disposition home or self-care (01) ==
PROVIDERS: PCP Internal Medicine; Visit Provider Internal Medicine
DX: M79.89 Other specified soft tissue disorders (principal)
CPT/HCPCS: 93971

== ENCOUNTER 2024-09-15 10:50 | Outpatient (RCR) | payer OTHER, SELFPAY | END 2024-10-14 23:59 | disposition home or self-care (01) | LOC: MM 10:50 | PROVIDERS: PCP Internal Medicine; Visit Provider Internal Medicine | DX: Z51.81 Encounter for therapeutic drug level monitoring (principal); Z79.01 Long term (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 of anticoagulants ==

== ENCOUNTER 2024-10-15 10:54 | Outpatient (RCR) | payer OTHER, SELFPAY | END 2024-11-14 09:37 | disposition home or self-care (01) | LOC: MM 10:54 | PROVIDERS: PCP Internal Medicine; Visit Provider Internal Medicine | DX: Z51.81 Encounter for therapeutic drug level monitoring (principal); Z79.01 Long term (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 of anticoagulants | CPT/HCPCS: 85610; G0463 ==

== ENCOUNTER 2024-11-16 00:20 | Outpatient (RCR) | payer MEDICARE, SELFPAY | END 2024-12-15 15:22 | disposition home or self-care (01) | LOC: MM 00:20 | PROVIDERS: PCP Internal Medicine; Visit Provider Internal Medicine | DX: Z51.81 Encounter for therapeutic drug level monitoring (principal); Z79.01 Long term (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 of anticoagulants; I82.409 Acute embolism and thrombosis of unspecified deep veins of unspecified lower extremity | CPT/HCPCS: 85610; G0463 ==

== ENCOUNTER 2024-12-18 02:20 | Outpatient (RCR) | payer MEDICARE, SELFPAY | END 2025-01-12 10:51 | disposition home or self-care (01) | LOC: MM 02:20 | PROVIDERS: PCP Internal Medicine; Visit Provider Internal Medicine | DX: Z51.81 Encounter for therapeutic drug level monitoring (principal); Z79.01 Long term (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 of anticoagulants | CPT/HCPCS: 85610; G0463 ==

== ENCOUNTER 2025-01-13 09:38 | Outpatient (RCR) | payer MEDICARE, SELFPAY | END 2025-02-09 10:16 | disposition home or self-care (01) | LOC: MM 09:38 | PROVIDERS: PCP Internal Medicine; Visit Provider Internal Medicine | DX: Z51.81 Encounter for therapeutic drug level monitoring (principal); Z79.01 Long term (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 of anticoagulants; I82.409 Acute embolism and thrombosis of unspecified deep veins of unspecified lower extremity | CPT/HCPCS: 85610; G0463 ==

== ENCOUNTER 2025-02-12 10:54 | Outpatient (OUT) | payer MEDICARE, SELFPAY ==
[2025-02-12 11:44] LABS: Hematocrit 37.4 % (36.0-48.0); Hemoglobin 12.1 g/dL (12.0-16.0); Mean Corpuscular HGB Conc 32.4 g/dL (29.9-35.2); Mean Corpuscular Hemoglobin 31.8 pg (26.7-34.0); Mean Corpuscular Volume 98.2 fL (81.0-99.0); Mean Platelet Volume 9.6 fL (9.5-13.5); Platelet Count 215 10^3/uL (150-450); Red Blood Count 3.81 10^6/uL (4.20-5.40); Red Cell Distribution Width 13.2 % (11.0-15.0); White Blood Count 4.8 10^3/uL (4.0-11.0)
[2025-02-12 12:00] LABS: Bilirubin Urine NEGATIVE (NEGATIVE); Blood Urine NEGATIVE (NEGATIVE); Clarity Urine CLEAR (CLEAR); Color Urine YELLOW (YELLOW); Glucose Urine UA NEGATIVE (NEGATIVE); Ketones Urine NEGATIVE (NEGATIVE); Leukocyte Esterase Urine NEGATIVE (NEGATIVE); Nitrite Urine NEGATIVE (NEGATIVE); Protein Urine NEGATIVE (NEG/TRACE); Specific Gravity Urine 1.025 (1.005-1.025); Urobilinogen Urine 0.2 EU/dL (0.2-1.0)
[2025-02-12 12:01] LABS: Creatinine Urine Random 127.82 mg/dL (20.00-300.00); Protein Creatinine Ratio Urine 0.19; Total Protein Urine Random 24.6 mg/dL (<=11.9)
[2025-02-12 12:14] LABS: Bacteria Urine TRACE #/HPF (NONE SEEN); Cast Seen? NONE SEEN #/LPF (NONE SEEN); Crystals Seen? None Seen #/HPF (None Seen); Mucus Urine NONE SEEN (NONE SEEN); RBC Urine 0-2 #/HPF (0-2); Squamous Epithelial Cell Urine RARE #/LPF (NONE/RARE); WBC Urine NONE SEEN #/HPF (NONE SEEN)
[2025-02-12 12:24] LABS: Albumin Level 3.3 g/dL (3.4-5.0); Anion Gap 17.5; BUN Creatinine Ratio 13.9; Calcium 8.6 mg/dL (8.5-10.1); Carbon Dioxide 21.1 mmol/L (21.0-32.0); Chloride 107 mmol/L (98-107); Estimated GFR (African America 31 (>=60 mL/min/1.73m^2); Estimated GFR (Non-African Ame 25 (>=60 mL/min/1.73m^2); Glucose 117 mg/dL (74-106); Phosphorus 3.5 mg/dL (2.6-4.7); Potassium 4.6 mmol/L (3.5-5.1); Sodium 141 mmol/L (136-145)
[2025-02-12 12:34] LABS: Percent Iron Saturation 23.1 %
[2025-02-13 09:08] LABS: PTH, Intact 141 pg/mL (15-65)
== END 2025-02-12 10:55 | disposition home or self-care (01) ==
LOC: LAB 11:02
PROVIDERS: PCP Internal Medicine; Visit Provider Internal Medicine
DX: I12.9 Hypertensive chronic kidney disease with stage 1 through stage 4 chronic kidney disease, or unspecified chronic kidney disease (principal); N18.4 Chronic kidney disease, stage 4 (severe); N25.81 Secondary hyperparathyroidism of renal origin; N18.9 Chronic kidney disease, unspecified; D63.1 Anemia in chronic kidney disease
CPT/HCPCS: 36415; 80069; 81001; 82306; 82570; 82728; 83540; 83550; 83735; 83970; 84156; 84550; 85027

== ENCOUNTER 2025-02-13 05:29 | Outpatient (RCR) | payer MEDICARE, SELFPAY | END 2025-03-14 15:50 | disposition home or self-care (01) | LOC: MM 05:29 | PROVIDERS: PCP Internal Medicine; Visit Provider Internal Medicine | DX: Z51.81 Encounter for therapeutic drug level monitoring (principal); Z79.01 Long term (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 of anticoagulants | CPT/HCPCS: 85610; G0463 ==

== ENCOUNTER 2025-02-21 15:54 | Outpatient (OUT) | payer MEDICARE, SELFPAY | END 2025-02-21 15:55 | disposition home or self-care (01) | LOC: US 15:56 | PROVIDERS: PCP Internal Medicine; Visit Provider Nurse Practitioner Family | DX: R60.0 Localized edema (principal); Z86.718 Personal history of other venous thrombosis and embolism | CPT/HCPCS: 93970 ==

== ENCOUNTER 2025-02-26 08:54 | Outpatient (OUT) | payer MEDICARE, SELFPAY ==
[2025-02-26 10:12] LABS: Albumin Level 3.2 g/dL (3.4-5.0); Anion Gap 14.7; BUN Creatinine Ratio 14.9; Calcium 8.5 mg/dL (8.5-10.1); Carbon Dioxide 24.9 mmol/L (21.0-32.0); Chloride 109 mmol/L (98-107); Estimated GFR (African America 31 (>=60 mL/min/1.73m^2); Estimated GFR (Non-African Ame 25 (>=60 mL/min/1.73m^2); Glucose 109 mg/dL (74-106); Magnesium 1.8 mg/dL (1.8-2.4); Phosphorus 4.2 mg/dL (2.6-4.7); Potassium 4.6 mmol/L (3.5-5.1); Sodium 144 mmol/L (136-145)
== END 2025-02-26 08:55 | disposition home or self-care (01) ==
LOC: LAB 08:56
PROVIDERS: PCP Internal Medicine; Visit Provider Internal Medicine
DX: R60.0 Localized edema (principal)
CPT/HCPCS: 36415; 80069; 83735

== ENCOUNTER 2025-03-15 04:42 | Outpatient (RCR) | payer MEDICARE, SELFPAY | END 2025-04-13 15:20 | disposition home or self-care (01) | LOC: MM 04:42 | PROVIDERS: PCP Internal Medicine; Visit Provider Internal Medicine | DX: Z51.81 Encounter for therapeutic drug level monitoring (principal); Z79.01 Long term (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 of anticoagulants | CPT/HCPCS: 85610; G0463 ==

== ENCOUNTER 2025-04-15 07:22 | Outpatient (RCR) | payer MEDICARE, SELFPAY | END 2025-05-10 14:24 | disposition home or self-care (01) | LOC: MM 07:22 | PROVIDERS: PCP Internal Medicine; Visit Provider Internal Medicine | DX: Z51.81 Encounter for therapeutic drug level monitoring (principal); Z79.01 Long term (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 of anticoagulants; I48.91 Unspecified atrial fibrillation | CPT/HCPCS: 85610; G0463 ==

== ENCOUNTER 2025-05-17 15:39 | Outpatient (RCR) | payer MEDICARE, SELFPAY | END 2025-06-14 16:45 | disposition home or self-care (01) | LOC: MM 15:39 | PROVIDERS: PCP Internal Medicine; Visit Provider Internal Medicine | DX: Z51.81 Encounter for therapeutic drug level monitoring (principal); Z79.01 Long term (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 of anticoagulants | CPT/HCPCS: 85610; G0463 ==

== ENCOUNTER 2025-06-15 02:04 | Outpatient (RCR) | payer MEDICARE, SELFPAY | END 2025-07-12 13:00 | disposition home or self-care (01) | LOC: MM 02:04 | PROVIDERS: PCP Internal Medicine; Visit Provider Internal Medicine | DX: Z51.81 Encounter for therapeutic drug level monitoring (principal); Z79.01 Long term (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 of anticoagulants | CPT/HCPCS: 85610; G0463 ==

== ENCOUNTER 2025-07-04 14:11 | Outpatient (OUT) | payer MEDICARE, SELFPAY ==
--- OUTSIDE RECORDS SUMMARY | 2025-07-04 14:13 | XMS_ITS | Encounter Summary ---
Author Organization [facility] Address [address] [place] [address] Care Team Providers Care Music Composition Teacher Name Role Phone Broderick Joiner DO Primary Care Provider [phone] Kitty Valente MD Unavailable Un available Source Comments In the event this information is protected by the Federal Confidentiality of Alcohol and Drug AbusePatient Records regulations: The Federal rules restrict any use of the information to criminally investigate or prosecute any alcohol or drug abuse patient.[facility] Encounter Details Date Type Department Care Team (Late st Contact Info) Description 03/01/2020 Patient Msg Neurology [address] [place] [address] [place] [address] [id number] [place] [address] Appointment Cancellation Request Social History Tobacco Use Types Packs/Day Years Used Date Smoking Tobacco: Never Smokeless Tobacco: Never Alcohol Use Standard Drinks/Week Comments No 0 (1 standard drink = 0.6 oz pur e alcohol) PHQ-2 Answer Date Recorded PHQ-2 score 4 11/20/2019 Comments No Sex and Gender Information Value Date Recorded Sex Assigned at Not on file Legal Sex Female 10:00 AM EST Gender Identity Not on file Sexual Orientation Not on file COVID-19 Exposure Response Date Recorded In the last month, have you been in contact with someone who was confirmed or suspected to have Coronavirus / COVID-19? No / Unsure 02/16/2020 3:12 PM EDT documented as of this encounter Functional Status * Are you deaf or do you have serious difficulty hearing? Answer Date of Assessment Author No 08/19/2015 11:02 AM EDT Vita GibbsRn) (Hist), RN * Are you blind or do you have serious difficulty seeing, even when wearing glasses? Answer Date of Assessment Author No 08/19/2015 11:02 AM XANDERT Vita Gibbs) (Hist), RN * Do you have serious difficulty walking or climbing stairs? Answer Date of Assessment Author No 08/19/2015 11:02 AM XANDERT Vita Gibbs) (Hist), RN * Do you have difficulty dressing or bathing? Answer Date of Assessment Author Yes 08/19/2015 11:02 AM EDT Vita Gibbs) (Hist), RN * Because of a physical, mental, or emotional condition, do you have difficulty doing errands alone such as visiting a doctor's office or shopping? Answer Date of Assessment Author Yes 08/19/2015 11:02 AM EDT Vita Gibbs) (Hist), RN documented as of this encounter Mental Status * Because of a physical, mental, or emotional condition, do you have serious difficulty concentrating, remembering, or making decisions? Answer Entry Date Author No 08/19/2015 11:02 AM EDT Vita Gibbs) (Hist), RN documented in this encounter Plan of Treatment Upcoming Encounters Date Type Department Care Team (Late st Contact Info) Description 07/18/2025 10:00 AM EDT Office Visit Neurology [address] [place] [address] [place] [address] [id number] [place] [address] Botox 01/09/2026 11:00 AM EST Office Visit Neurology [address] [place] [id number] Ross Villar MD, PhD [address] [place] [address] annaul follow up documented as of this encounter Visit Diagnoses Not on filedocumented in this encounter Care Teams Music Composition Teacher Relationship Specialty Start Date End Date Broderick Joiner DO [address] [place] [address] PCP - General Internal Medicine 09/21/18 Kitty Valente MD [address] [place] [address] Primary Staff Physician Cardiology 01/31/19 documented as of this encounter
--- OUTSIDE RECORDS SUMMARY | 2025-07-04 14:13 | XMS_ITS | Clinical Summary ---
Author Organization [employer] Address [id number] [place] [address] Care Team Providers Care Tower Watchman Name Role Phone Shashi Lisa DO Primary Care Provider Nilsa gonzalez Allergies Active Allergy Reactions Criticality Noted Date Comments Dexamethasone Rash Low 10/03/2015 Pregabalin 06/01/2017 Medications melatonin (CIRCADIN) 5 mg tablet Take 5 mg by mouth. Active venlafaxine XR (EFFEXOR XR) 75 mg 24 hr capsule Take 75 mg by mouth. 04/28/2017 Active amLODIPine (NORVASC) 10 mg tablet Take 1 tablet (10 mg total) by mouth daily for 180 days. 90 tablet 1 06/01/2017 Active omeprazole (PriLOSEC) 40 mg capsule Take 1 capsule (40 mg total) by mouth daily for 180 days. 90 capsule 1 06/01/2017 Active warfarin (COUMADIN) 4 mg tablet Take 1 tablet (4 mg total) by mouth daily for 180 days. 90 tablet 1 06/01/2017 Active hydrALAZINE (APRESOLINE) 50 mg tablet Take 25 mg by mouth 3 (three) times a day. 10/14/2017 Active levETIRAcetam (KEPPRA) 1000 mg tablet Take 1.5 tablets by mouth 2 (two) times a day. 12/28/2016 Active zonisamide (ZONEGRAN) 100 mg capsule Take 100 mg by mouth nightly. 12/06/2017 Active Active Problems No known active problems Family History Medical History Relation Name Comments Pancreatic cancer Father Relation Name Status Comments Father Social History Tobacco Use Types Packs/Day Years Used Date Smoking Tobacco: Never Smokeless Tobacco: Never Alcohol Use Standard Drinks/Week Comments Yes 0 (1 standard drink = 0.6 oz pur e alcohol) Childcare Answer Date Recorded Childcare Unknown 04/20/2019 Employment Answer Date Recorded Employment Unknown 04/20/2019 Purpose - Life Answer Date Recorded Purpose and direction in life Unknown Comments Unknown Sex and Gender Information Value Date Recorded Sex Assigned at Not on file Legal Sex Female 12:04 PM EDT Gender Identity Not on file Sexual Orientation Not on file Last Filed Vital Signs Vital Sign Reading Time Taken Comments Blood Pressure 156/62 12/20/2017 10:30 AM EST Pulse 86 12/20/2017 10:30 AM EST Temperature - - Respiratory Rate 14 12/20/2017 10:30 AM EST Oxygen Saturation 97% 12/20/2017 10:30 AM EST Inhaled Oxygen Concentration - - Weight 68 kg (150 lb) 12/20/2017 10:30 AM EST Height 162.6 cm (5' 4 ) 12/20/2017 10:30 AM EST Body Mass Index 25.75 12/20/2017 10:30 AM EST Plan of Treatment Health Maintenance Due Date Last Done Comments Depression Screening 1962 Tobacco Screening 1962 DTaP,Tdap and Td Vaccines (1 - Tdap) 1969 Zoster (Shingles) Vaccine (1 of 2) 2000 Fall Risk Screening 2015 Influenza Vaccine 07/16/2025 Medical Devices Not on file Insurance MEDICARE [facility] Care Teams Tower Watchman Relationship Specialty Start Date End Date Shashi Lisa DO PCP - General 12/17/17
--- OUTSIDE RECORDS SUMMARY | 2025-07-04 14:13 | XMS_ITS | Clinical Summary ---
Author Organization [facility] Address [address] [place] [address] Care Team Providers Care Conditioner Tumbler Operator Name Role Phone Broderick Joiner Primary Care Provider [phone] Kitty Valente MD Unavailable Un available Allergies Active Allergy Reactions Criticality Noted Date Comments Dexamethasone Rash 10/03/2015 Pregabalin Rash Medium 08/24/2013 Medications * This document contains information received from the source organization and may not represent a complete record from that organization. omeprazole (PRILOSEC) 40 mg capsule Take 1 capsule by mouth once daily. 0 01/28/20 11 Active warfarin (COUMADIN) 4 mg tablet Take 1 tablet by mouth once daily. 0 10/03/20 15 Active ondansetron orally disintegrating (ZOFRAN ODT) 4 mg disintegrating tablet 11/25/19 21 Active amitriptyline (ELAVIL) 25 mg tablet Take 25 mg by mouth daily at bedtime. Active carvedilol (COREG) 12.5 mg tablet Take 12.5 mg by mouth twice daily with meals. Active amLODIPine (NORVASC) 5 mg tablet Take 5 mg by mouth once daily. 06/23/20 22 Active levETIRAcetam (KEPPRA) 750 mg tablet Take 1 tablet by mouth two times a day. 180 tablet 3 01/04/20 25 026 Active ergocalciferol 50,000 unit capsule (VITAMIN D2, DRISDOL) Take 1 capsule by mouth one time a week. Active ferrous sulfate 325 mg (65 mg iron) tablet Take 1 tablet by mouth every 48 hours. Active venlafaxine ER (EFFEXOR XR) 150 mg 24 hr capsule Take 150 mg by mouth once daily. Active losartan (COZAAR) 25 mg tablet TAKE 1 TABLET BY MOUTH ONCE EVERY MORNING FOR HTM Active linaCLOtide (LINZESS) 72 mcg capsule Take 72 mcg by mouth. 08/29/20 24 Active doxycycline hyclate (VIBRAMYCIN) 100 mg capsule Take 100 mg by mouth. 11/21/19 25 Active zonisamide (ZONEGRAN) 100 mg capsuleIndications :Localization-rela tanesha (focal) (partial) symptomatic epilepsy and epileptic syndromes with complex partial seizures, intractable, without status epilepticus (HCC) Take 3 capsules by mouth daily at bedtime. 270 capsule 1 06/22/20 25 026 Active zonisamide (ZONEGRAN) 100 mg capsuleIndications :Localization-rela tanesha (focal) (partial) symptomatic epilepsy and epileptic syndromes with complex partial seizures, intractable, without status epilepticus (HCC) Take 3 capsules by mouth daily at bedtime. 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 10/08/2015 Hypertropia of right eye 10/08/2015 Depression 08/19/2015 Sinus node dysfunction 07/11/2015 Cardiac pacemaker in situ 05/23/2015 Overview (05/23/2015): DDDR By Dr Garner on 05/22/2015 Partial epilepsy with impair ment of consciousness, intractable 05/20/2015 HTN (hypertension) 05/14/2015 Bradycardia 05/14/2015 Anticoagulated on Coumadin 05/14/2015 Elevated alkaline phosphatase level 05/14/2015 New daily persistent headache 04/19/2015 Migraine 01/24/2015 Central line complication 03/29/2014 Right leg DVT 03/09/2013 Presence of IVC filter 03/09/2013 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 Pancreas cancer 01/29/2011 Resolved Problems Problem Noted Date Diagnosed Date Resolved Date Seizure 01/24/2015 06/21/2018 Encounters Date Type Department Care Team Description 06/22/2025 Refill Neurology [address] [place] [address] Lauren Otero APRN.MEAT AND POULTRY INSPECTOR Refill Request 05/21/2025 8:00 AM EDT Office Visit Neurology [address] [id number] Elian Jones DO Chronic pain syndrome (Primary Dx); MCI (mild cognitive impairment); Sinus node dysfunction (HCC); Obesity, Class II, BMI 35-39.9 05/14/2025 Travel 04/24/2025 Orders Only [place] [address] Kitty Valente MD 04/10/2025 11:30 AM EDT Office Visit Neurology [address] [place] [id number] Ashley Tran MD Intractable 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 aura and without status migrainosus (Primary Dx) 04/03/2025 Travel from Last 3 Months Family History Medical History Relation Comments Liver Ca[other] Father No Ocular Disease Other Breast Cancer Sister 6 Relation Status Comments Brother 1 Alive Brother 2 Alive Father Mother Alive Other Sister 1 Alive Sister 2 Alive Sister 3 Alive Sister 4 Alive Sister 5 Sister 6 Social History Tobacco Use Types Packs/Day Years Used Date Smoking Tobacco: Never Smokeless Tobacco: Never Alcohol Use Standard Drinks/Week Comments No 0 (1 standard drink = 0.6 oz pur e alcohol) PHQ-2 Answer Date Recorded PHQ-2 score 2 05/14/2025 Area Deprivation Index Answer Date Chucky rded National Score (1-100), lower number is lower ri sk 63 09/08/2023 State Score (1-10), lower number is lower risk 4 09/08/2023 Data from: https://www.neighborhoodatlas.medicine.[facility].edu/. Last address used for calculation [address] 09/08/2023 Comments No Sex and Gender Information Value Date Recorded Sex Assigned at Not on file Legal Sex Female 10:00 AM EST Gender Identity Not on file Sexual Orientation Not on file Last Filed Vital Signs Vital Sign Reading Time Taken Comments Blood Pressure 123/60 05/21/2025 8:03 AM EDT Pulse 86 04/10/2025 11:10 AM EDT Temperature 36.4 C (97.6 F) 12/23/2023 9:02 AM EST Respiratory Rate 16 11/28/2021 1:11 PM EST Oxygen Saturation 100% 12/23/2023 9:02 AM EST Inhaled Oxygen Concentration - - Weight 87.3 kg (192 lb 6.4 oz) 05/21/2025 8:03 A M EDT Height 157.5 cm (5' 2 ) 04/10/2025 11:10 AM EDT Body Mass Index 35.19 04/10/2025 11:10 AM EDT Plan of Treatment Upcoming Encounters Date Type Department Care Team (Late st Contact Info) Description 07/18/2025 10:00 AM EDT Office Visit Neurology [address] [place] [address] [place] [address] [place] [address] Botox 01/09/2026 11:00 AM EST Office Visit Neurology [address] [facility] [place] [id number] Ross Villar MD, PhD [address] [place] [address] annaul follow up Health Maintenance Due Date Last Done Comments Annual PCP Team Chronic Dise ase Visit 1968 Hepatitis C Screening 1968 DTaP,Tdap,Td Vaccine (1 - Tdap) 1969 CT Colonography 1995 Colonoscopy 1995 Fecal Occult Blood 1995 Lipid Screening 1995 Sigmoidoscopy 1995 Shingrix Vaccine (1 of 2) 2000 Bone Density Screening 2015 Pneumococcal Vaccine: 50+ (2 of 2 - PCV) 02/04/2019 02/04/2018 Cologuard (FIT-DNA) 04/30/2022 04/30/2019 Colorectal Cancer Screening 04/30/2022 Advance Directive Discussion 11/15/2024 Medicare Advantage Annual We llness Visit 11/15/2024 RSV Vaccine (1 - 1-dose 75+ series) 2025 Influenza Vaccine (#1) 2025 , 08/31/2023, 07/30/2022, Additional history exists Diabetes Screening 06/29/2027 06/29/2024, 0 11/28/2021, 11/29/2020, Additional history exists Goals Goal Patient Goal Type Associated Problems Recent Progress Patient-Stated? Author Blood Pressure < 130/80 Blood Pressure 123/60( 025 8:03 AM EDT) No Kitty Valente MD Medical Devices Implanted Type Area Pill Coater Device Identifier Shelf Expiration Date Model / Serial / Lot [id number] Capsurefix Novus [id number] Implanted:06/2015 (Quantity not on file) Lead [employer] 5076 CAPSUREFIX NOVUS / [id number] / [id number] Capsurefix Novus [id number] Implanted:06/2015 (Quantity not on file) Lead [employer] 5076 CAPSUREFIX NOVUS / [id number] / Pacemaker-A2d r01 Advisa [id number] Implanted:06/2015 (Quantity not on file) Pacemaker [employer] [id number] Advisa DR COBOS / [id number] / Plate Bn 12mm Cmf Ti 2 H Lp - [id number] Implanted:Qty : 3 on 08/16/2015 at [facility] Plate STRY-HOWM CRANIOMAXILLOFACIAL [id number] / / Pin Crss Sd Scr 1.5x4mm - [id number] Implanted:Qty : 6 on 08/16/2015 at [facility] Screw STRY-HOWM CRANIOMAXILLOFACIAL [id number] / / Procedures Procedure Name Priority Date/Time Associated Diagnosis Comments REM INTERROG PM/LDLS PM <90 D PHYS/QHP Routine 04/24/2025 4:25 PM EDT COMPREHENSIVE METABOLIC PANEL Routine 06/29/2024 1:57 PM EDT Focal epilepsy with impairment of consciousness, intractable (HCC) from Last 3 Months or Most Recently Relevant to Health Maintenance Results * CARDIAC IMPLANTABLE DEVICE CHECK REMOTE (04/24/2025 4:25 PM EDT) Date Time Interrogation Session [id number] MURJ CARDIAC Type Interrogation Session Remote MURJ CARDIAC Implantable Pulse Generator Pill Coater Medtronic MURJ CARDIAC Implantable Pulse Generator Type Pacemaker MURJ CARDIAC Implantable Pulse Generator Model Advisa DR MRI [id number] MURJ CARDIAC Implantable Pulse Generator Serial Number [id number] MURJ CARDIAC Implantable Pulse Generator Implant Date [id number] MURJ CARDIAC Battery Remaining Longevity 11.0 MURJ CARDIAC Battery Voltage 2.880 MURJ CARDIAC Battery SAFETY INVESTIGATOR Trigger 2.830 MURJ CARDIAC Battery Status OK MURJ CARDIAC Godfrey Statistic RA Percent Paced 100.00 MURJ CARDIAC Godfrey Statistic RV Percent Paced 0.00 MURJ CARDIAC Atrial Tachy Statistic AT/AF Murray Percent 0.00 MURJ CARDIAC Lead Channel Sensing Intrinsic Amplitude 1.750 MURJ CARDIAC Lead Channel Setting Sensing Sensitivity 0.30 MURJ CARDIAC Lead Channel Impedance Value 380 MURJ CARDIAC Lead Channel Pacing Threshold Amplitude 0.500 MURJ CARDIAC Lead Channel Pacing Threshold Pulse Width 0.4 MURJ CARDIAC Lead Channel Measurements Date and Time 2025-04-24 MURJ CARDIAC Lead Channel Setting Pacing Amplitude 1.500 MURJ CARDIAC Lead Channel Setting Pacing Pulse Width 0.4 MURJ CARDIAC Lead Channel Sensing Intrinsic Amplitude 10.750 MURJ CARDIAC Lead Channel Setting Sensing Sensitivity 0.90 MURJ CARDIAC Lead Channel Impedance Value 532 MURJ CARDIAC Lead Channel Pacing Threshold Amplitude 1.000 MURJ CARDIAC Lead Channel Pacing Threshold Pulse Width 0.4 MURJ CARDIAC Lead Channel Measurements Date and Time 2025-04-24 MURJ CARDIAC Lead Channel Setting Pacing Amplitude 2.000 MURJ CARDIAC Lead Channel Setting Pacing Pulse Width 0.4 MURJ CARDIAC Godfrey Setting Mode (NBG Code) AAIR<=>DDDR MURJ CARDIAC Godfrey Setting Lower Rate Limit 60 MURJ CARDIAC Godfrey Setting AT Mode Switch Rate 171 MURJ CARDIAC Godfrey Setting Maximum Tracking Rate 130 MURJ CARDIAC Godfrey Setting Maximum Sensor Rate 130 MURJ CARDIAC Godfrey Setting PAV Delay 180 MURJ CARDIAC Godfrey Setting LOREE Delay 150 MURJ CARDIAC Lead Channel Setting Sensing Polarity Bipolar MURJ CARDIAC Lead Channel Setting Sensing Polarity Bipolar MURJ CARDIAC Lead Channel Setting Pacing Polarity Bipolar MURJ CARDIAC Lead Channel Setting Pacing Polarity Bipolar MURJ CARDIAC Lead Channel Pacing Threshold Polarity Bipolar MURJ CARDIAC Lead Channel Pacing Threshold Polarity Bipolar MURJ CARDIAC Zone Setting Type Category AT/AF MURJ CARDIAC Rate 1 171 MURJ CARDIAC Therapies Some Rx Off MURJ CARDIAC Zone Setting Status Monitor MURJ CARDIAC Zone ID 2 MURJ CARDIAC Zone Setting Type Category VT MURJ CARDIAC Rate 1 150 MURJ CARDIAC Zone Setting Status ENABLED MURJ CARDIAC Zone ID 6 MUR CARDIAC Implantable Lead Pill Coater Medtronic MURJ CARDIAC Implantable Lead Model 5076 CapSureFix Novus [facility] CARDIAC Implantable Lead Location Right Atrium MURJ CARDIAC Implantable Lead Connection Status Connected [facility] CARDIAC Implantable Lead Serial Number [id number] [facility] CARDIAC Implantable Lead Implant Date 20150522 [facility] CARDIAC Implantable Lead Pill Coater Medtronic MURJ CARDIAC Implantable Lead Model 5076 CapSureFix Novus [facility] CARDIAC Implantable Lead Location Right Ventricle MURJ CARDIAC Implantable Lead Connection Status Connected [facility] CARDIAC Implantable Lead Serial Number [id number] [facility] CARDIAC Implantable Lead Implant Date 20150522 [facility] CARDIAC 04/24/2025 4:25 PM EDT Narrative [facility] CARDIAC - 05/27/2025 6:57 PM EDT Normal Remote: No Events * Normal Device Function * Alerts or events: None * Battery: OK, 11 mos * Sensing, impedance and thresholds reviewed * Programmed parameters reviewed * Presenting rhythm reviewed * Heart Rate Histograms reviewed * No significant changes noted Normal Remote: No Events * Normal Device Function * Alerts or events: None * Battery: 11 months. * Sensing, impedance and thresholds reviewed * Programmed parameters reviewed * Presenting rhythm reviewed: AP/VS. * Heart Rate Histograms reviewed * No significant changes noted * RA pacing 100%, RV pacing 0% (MVP On). NOTE TO PROVIDERS: Cardiac Implanted Devices Flowsheets contain detailed Programming and Evaluation data. Full Docket/PDF found below under Scanned Documents . Procedure Note Kitty Valente MD - 05/27/2025 Normal Remote: No Events * Normal Device Function * Alerts or events: None * Battery: OK, 11 mos * Sensing, impedance and thresholds reviewed * Programmed parameters reviewed * Presenting rhythm reviewed * Heart Rate Histograms reviewed * No significant changes noted Normal Remote: No Events * Normal Device Function * Alerts or events: None * Battery: 11 months. * Sensing, impedance and thresholds reviewed * Programmed parameters reviewed * Presenting rhythm reviewed: AP/VS. * Heart Rate Histograms reviewed * No significant changes noted * RA pacing 100%, RV pacing 0% (MVP On). NOTE TO PROVIDERS: Cardiac Implanted Devices Flowsheets contain detailedProgramming and Evaluation data. Full Docket/PDF found below under Scanned Documents . us Kitty Vidal MD CARDIOLOGY Fin al Result MURJ CARDIAC * (ABNORMAL) COMPREHENSIVE METABOLIC PANEL (06/29/2024 1:57 PM EDT) [facility] Protein, Total 7.0 6.3 - 8.0 g/dL 06/29/2024 2:36 PM EDT [facility] Albumin 4.3 3.9 - 4.9 g/dL 06/29/2024 2:36 PM EDT [facility] Calcium, Total 8.8 8.5 - 10.2 mg/dL 06/29/2024 2:36 PM EDT [facility] Bilirubin, Total 0.4 0.2 - 1.3 mg/dL 06/29/2024 2:36 PM EDT [facility] Alkaline Phosphatase 170(H) 34 - 123 U/L 06/29/2024 2:36 PM EDT [facility] AST 22 13 - 35 U/L 06/29/2024 2:36 PM EDT [facility] ALT 28 7 - 38 U/L 06/29/2024 2:36 PM EDT [facility] Glucose 111(H) 74 - 99 mg/dL 06/29/2024 2:36 PM EDT [facility] Comment: The [place] Diabetes Association (ADA) provides guidance for cutoff [...] Standards of Medical Care in Diabetes 2016, [place] Diabetes Association. Diabetes Care. 2016.39(Suppl 1). BUN 34(H) 7 - 21 mg/dL 06/29/2024 2:36 PM EDT [facility] Creatinine 1.73(H) 0.58 - 0.96 mg/dL 06/29/2024 2:36 PM EDT [facility] Sodium 141 136 - 144 mmol/L 06/29/2024 2:36 PM EDT [facility] Potassium 5.1 3.7 - 5.1 mmol/L 06/29/2024 2:36 PM EDT [facility] Chloride 109(H) 98 - 107 mmol/L 06/29/2024 2:36 PM EDT [facility] CO2 24 22 - 30 mmol/L 06/29/2024 2:36 PM EDT [facility] Anion Gap 8 8 - 15 mmol/L 06/29/2024 2:36 PM EDT [facility] Estimated Glomerular Filtration Rate 31(L) >=60 mL/min/1. 73m 06/29/2024 2:36 PM EDT [facility] Comment:Estimated Glomerular Filtration Rate (eGFR) is calculated using the 2020 CKD-EPI creatinine equation. This equation utilizes serum creatinine, sex, and age as parameters. The creatinine assay has traceable calibration to isotope dilution- mass spectrometry. Refer to KDIGO guidelines for clinical interpretation. In patients with unstable renal function, e.g. those with acute kidney injury, the eGFR may not accurately reflect actual GFR. Blood BLOOD SPECIMEN / Unknown Venipuncture / Unknown 06/29/2024 1:57 PM EDT 06/29/2024 1:57 PM EDT us Ross Villar MD, PhD LABORATORY Final Re sult [facility] [address] [place] [address], from Last 3 Months or Most Recently Relevant to Health Maintenance Insurance [employer] Care Teams Conditioner Tumbler Operator Relationship Specialty Start Date End Date Broderick Joiner DO [address] [place] [address] PCP - General Internal Medicine 09/21/18 Kitty Valente MD [address] [place] [address] Primary Staff Physician Cardiology 01/31/19
--- OUTSIDE RECORDS SUMMARY | 2025-07-04 14:13 | XMS_ITS | Clinical Summary ---
Author Organization [facility] Address [address] [place] [address] Care Team Providers Care Windows Vmware Administrator Name Role Phone Broderick Joiner Primary Care Provider [phone] Allergies Active Allergy Reactions Criticality Noted Date Comments Dexamethasone Rash,Unknown Low 10/03/2015 Pregabalin Rash,Unknown Medium 08/24/2013 Rifaximin Rash Low 04/21/2024 Medications amitriptyline (Elavil) 10 MG tablet Daily at bedtime 07/20/20 23 Active amLODIPine (Norvasc) 5 MG tablet Daily 02/02/20 24 Active carvedilol (Coreg) 12.5 MG tablet Twice daily 02/08/20 24 Active levETIRAcetam (Keppra) 1000 MG tablet every 12 (twelve) hours Active losartan (Cozaar) 25 MG tablet Every morning 02/02/20 24 Active omeprazole (PriLOSEC) [address] capsule Every morning 07/20/20 23 Active traMADol (Ultram) 50 MG tablet Twice daily 04/13/20 24 Active venlafaxine XR (Effexor XR) 150 MG 24 hr capsule .COMPLEX 02/23/20 24 Active warfarin (Coumadin) 4 MG tablet Active zonisamide (Zonegran) 100 MG capsule Daily 12/23/19 24 Active ondansetron (Zofran) 4 MG tablet Take by mouth Active doxycycline (Vibramycin) 100 MG capsule Take 100 mg by mouth in the morning and 100 mg before bedtime. 11/21/19 25 Active ergocalciferol (Vitamin D2) 1.25 MG (08964 UT) capsule TAKE 1 CAPSULE BY MOUTH ONCE EVERY WEEK 09/07/20 24 Active ferrous sulfate 325 (65 Fe) MG tablet Take 1 tablet by mouth every other day 09/07/20 24 Active ondansetron ODT (Zofran-ODT) 4 MG disintegrating tablet DISSOLVE 1 TABLET IN MOUTH EVERY 6 HOURS NEEDED FOR NAUSEA 11/16/19 25 Active Linzess 72 MCG capsule Take 72 mcg by mouth Daily 08/29/20 24 Active Enoxaparin Sodium 100 MG/ML solution prefilled syringe INJECT 90 MG SUBCUTANEOUSLY TWICE A DAY DIRECTED 10/25/20 24 Active Active Problems Problem Noted Date Diagnosed Date Abdominal wall hematoma 11/29/2024 Family History Medical History Relation Name Comments Pancreatic cancer Brother Federico Andujar Cancer Father Scottie Andujar Liver cancer Father Scottie Andujar Breast cancer Sister 1 Cancer Sister 2 Edna Tobar Colon cancer Neg Hx Ovarian cancer Neg Hx Relation Name Status Comments Brother Federico Andujar Father Scottie Andujar Mother Sister 1 Sister 2 Edna Tobar Social History Tobacco Use Types Packs/Day Years Used Date Smoking Tobacco: Never Smokeless Tobacco: Never Tobacco Cessation:Counseling Given: Not Answered Alcohol Use Standard Drinks/Week Comments Yes 2 (1 standard drink = 0.6 oz pur e alcohol) Comments Unknown Sex and Gender Information Value Date Recorded Sex Assigned at Not on file Legal Sex Female 6:53 PM EDT Gender Identity Not on file Sexual Orientation Not on file Last Filed Vital Signs Vital Sign Reading Time Taken Comments Blood Pressure 125/85 11/29/2024 1:43 PM EST Pulse - - Temperature - - Respiratory Rate - - Oxygen Saturation - - Inhaled Oxygen Concentration - - Weight 87.5 kg (193 lb) 11/29/2024 1:43 PM EST Height 157.5 cm (5' 2 ) 11/29/2024 1:43 PM EST Body Mass Index 35.3 11/29/2024 1:43 PM EST Plan of Treatment Health Maintenance Due Date Last Done Comments CT Colonography 1950 Colonoscopy 1950 FIT 1950 FOBT 1950 Sigmoidoscopy 1950 Pneumococcal Vaccine: 65+ Ye ars (1 of 1 - PCV) 2000 Colorectal Cancer Screening 04/30/2022 FIT-DNA 04/30/2022 04/30/2019 Influenza Vaccine (#1) 2025 4, 08/31/2023, 07/30/2022, Additional history exists Insurance Care Teams Windows Vmware Administrator Relationship Specialty Start Date End Date Broderick Joiner DO PCP - General Internal Medicine 05/03/24
--- OUTSIDE RECORDS SUMMARY | 2025-07-04 14:13 | XMS_ITS | Encounter Summary ---
Author Organization [facility] Address [address] [place] [address] Care Team Providers Care Ward Nurse Name Role Phone Broderick Joiner DO Primary Care Provider [phone] Kitty Valente MD Unavailable Un available Kitty Valente MD Unavailable Un available Source Comments In the event this information is protected by the Federal Confidentiality of Alcohol and Drug AbusePatient Records regulations: The Federal rules restrict any use of the information to criminally investigate or prosecute any alcohol or drug abuse patient.[facility] Encounter Details Date Type Department Care Team (Late st Contact Info) Description 08/24/2019 Patient Msg Cardiology [address] [place] [address] Provider, [facility] Appointment Social History Tobacco Use Types Packs/Day Years Used Date Smoking Tobacco: Never Smokeless Tobacco: Never Alcohol Use Standard Drinks/Week Comments No 0 (1 standard drink = 0.6 oz pur e alcohol) Comments No Sex and Gender Information Value Date Recorded Sex Assigned at Not on file Legal Sex Female 10:00 AM EST Gender Identity Not on file Sexual Orientation Not on file documented as of this encounter Functional Status * Are you deaf or do you have serious difficulty hearing? Answer Date of Assessment Author No 08/19/2015 11:02 AM EDT Vita Gibbs (Rn) (Hist), RN * Are you blind or do you have serious difficulty seeing, even when wearing glasses? Answer Date of Assessment Author No 08/19/2015 11:02 AM XANDERT Vita Gibbs (Rn) (Hist), RN * Do you have serious difficulty walking or climbing stairs? Answer Date of Assessment Author No 08/19/2015 11:02 AM XANDERT Vita Gibbs (Rn) (Hist), RN * Do you have difficulty dressing or bathing? Answer Date of Assessment Author Yes 08/19/2015 11:02 AM XANDERT Vita GibbsRn) (Hist), RN * Because of a physical, mental, or emotional condition, do you have difficulty doing errands alone such as visiting a doctor's office or shopping? Answer Date of Assessment Author Yes 08/19/2015 11:02 AM XANDERT Vita GibbsRn) (Hist), RN documented as of this encounter Mental Status * Because of a physical, mental, or emotional condition, do you have serious difficulty concentrating, remembering, or making decisions? Answer Entry Date Author No 08/19/2015 11:02 AM XANDERT Vita GibbsRn) (Hist), RN documented in this encounter Plan of Treatment Upcoming Encounters Date Type Department Care Team (Late st Contact Info) Description 07/18/2025 10:00 AM EDT Office Visit Neurology [address] [place] [address] [place] [address] [place] [address] Botox 01/09/2026 11:00 AM EST Office Visit Neurology [address] [place] [address] Ross Villar MD, PhD [address] [place] [address] annaul follow up documented as of this encounter Visit Diagnoses Not on filedocumented in this encounter Care Teams Ward Nurse Relationship Specialty Start Date End Date Broderick Joiner DO [address] [place] [address] PCP - General Internal Medicine 09/21/18 Kitty Valente MD [address] [place] [address] Primary Staff Physician Cardiology 01/31/1901/31 Kitty Valente MD [address] [place] [address] Primary Staff Physician Cardiology 01/31/19 documented as of this encounter
--- OUTSIDE RECORDS SUMMARY | 2025-07-04 14:13 | XMS_ITS | Encounter Summary ---
Author Organization [facility] Address [address] [place] [address] Care Team Providers Care Embroidery Assistant Name Role Phone Leo Fierro Primary Care Provider [phone] Shashi Lisa DO Primary Care Provider Broderick Joiner DO Primary Care Provider [phone] Kitty Valente MD Unavailable Un available Kitty Valente MD Unavailable Un available Source Comments In the event this information is protected by the Federal Confidentiality of Alcohol and Drug AbusePatient Records regulations: The Federal rules restrict any use of the information to criminally investigate or prosecute any alcohol or drug abuse patient.[facility] Encounter Details Date Type Department Care Team (Late st Contact Info) Description 02/19/2011 Surgical Case HOSP MAIN H071 [address] [id number] [place] [address] [place] [phone] Social History Tobacco Use Types Packs/Day Years [...] on file documented as of this encounter Plan of Treatment Upcoming Encounters Date Type Department Care Team (Late st Contact Info) Description 07/18/2025 10:00 AM EDT Office Visit Neurology [address] [address] [place] [address] [address] [place] [address] Botox 01/09/2026 11:00 AM EST Office Visit Neurology [address] [place] [address] Ross Villar MD, PhD [address] [place], [place] [phone] annaul follow up documented as of this encounter Visit Diagnoses Not on filedocumented in this encounter Care Teams Embroidery Assistant Relationship Specialty Start Date End Date Leo Fierro [address] [place] [phone] PCP - General Family Medicine 01/23/11 11/14/16 Shashi Lisa DO [address] [place] [address] PCP - General Family Medicine 11/15/16 09/20/18 Broderick Joiner DO [address] [place] [address] PCP - General Internal Medicine 09/21/18 Kitty Valente MD [address] [place] [address] Primary Staff Physician Cardiology 01/31/1901/31 Kitty Valente MD [address] [place] [address] Primary Staff Physician Cardiology 01/31/19 documented as of this encounter
--- OUTSIDE RECORDS SUMMARY | 2025-07-04 14:13 | XMS_ITS | Encounter Summary ---
Author Organization [facility] Address [address] [place] [address] Care Team Providers Care Rail Transportation Operator Name Role Phone RhysBroderick Aldair MCKEON Primary Care Provider [phone] Kitty Valente MD Unavailable Un available Source Comments In the event this information is protected by the Federal Confidentiality of Alcohol and Drug AbusePatient Records regulations: The Federal rules restrict any use of the information to criminally investigate or prosecute any alcohol or drug abuse patient.[facility] Encounter Details Date Type Department Care Team (Late st Contact Info) Description 12/13/2023 Patient Msg Neurology [address] [phone] Provider, [facility] Refill Social History Tobacco Use Types Packs/Day Years Used Date Smoking Tobacco: Never Smokeless Tobacco: Never Alcohol Use Standard Drinks/Week Comments No 0 (1 standard drink = 0.6 oz pur e alcohol) PHQ-2 Answer Date Recorded PHQ-2 score 2 09/08/2022 Area Deprivation Index Answer Date Chucky rded National Score (1-100), lower number is lower ri sk 63 09/08/2023 State Score (1-10), lower number is lower risk 4 09/08/2023 Data from: https://www.neighborhoodatlas.medicine[facility]/. Last address used for calculation [id number] 09/08/2023 Comments No Sex and Gender [...] AM XANDERT Vita GibbsRn) (Hist), RN * Do you have serious difficulty walking or climbing stairs? Answer Date of Assessment Author No 08/19/2015 11:02 AM XANDERT Vita GibbsRn) (Hist), RN * Do you have difficulty dressing or bathing? Answer Date of Assessment Author Yes 08/19/2015 11:02 AM EDT Vita Gibbs) (Hist), RN * Because of a physical, mental, or emotional condition, do you have difficulty doing errands alone such as visiting a doctor's office or shopping? Answer Date of Assessment Author Yes 08/19/2015 11:02 AM XANDERT Vita Gibbs) (Hist), RN documented as of this encounter Mental Status * Because of a physical, mental, or emotional condition, do you have serious difficulty concentrating, remembering, or making decisions? Answer Entry Date Author No 08/19/2015 11:02 AM XANDERT Vita Gibbs) (Hist), RN documented in this encounter Plan of Treatment Upcoming Encounters Date Type Department Care Team (Late st Contact Info) Description 07/18/2025 10:00 AM EDT Office Visit Neurology [address] [place] [address] [place] [address] [place] [address] Botox 01/09/2026 11:00 AM EST Office Visit Neurology [address] [place] [phone] Ross Villar MD, PhD [address] [place] [address] annaul follow up documented as of this encounter Visit Diagnoses Not on filedocumented in this encounter Care Teams Rail Transportation Operator Relationship Specialty Start Date End Date Broderick Joiner DO [address] [place] [address] PCP - General Internal Medicine 09/21/18 Kitty Valente MD [address] [place] [address] Primary Staff Physician Cardiology 01/31/19 documented as of this encounter
--- OUTSIDE RECORDS SUMMARY | 2025-07-04 14:13 | XMS_ITS | Encounter Summary ---
Author Organization [facility] Address [address] [place] [address] Phone Care Team Providers Care Computer Education Professor Name Role Phone Unavailable Primary Care Provider Unavailabl e Encounter Details Date Type Department Care Team (Late st Contact Info) Description 04/29/2023 Orders Only [facility] [address] [place] [address] Conversion, Onbase Social History Tobacco Use Types Packs/Day Years Used Date Smoking Tobacco: Never Assessed Comments Unknown Sex and Gender Information Value Date Recorded Sex Assigned at Not on file Legal Sex Female 9:01 PM EST Gender Identity Not on file Sexual Orientation Not on file documented as of this encounter Plan of Treatment Scheduled Orders Name Type Priority Associated Diagnoses Orde r Schedule OUTSIDE LAB SCAN Lab Ordered: 04/29/2023 documented as of this encounter Visit Diagnoses Not on filedocumented in this encounter
--- OUTSIDE RECORDS SUMMARY | 2025-07-04 14:13 | XMS_ITS | Encounter Summary ---
Author Organization [facility] Address [address] [place] [address] Care Team Providers Care Data Collection Associate Name Role Phone Broderick Joiner DO Primary Care Provider [phone] Kitty Valente MD Unavailable Un available Source Comments In the event this information is protected by the Federal Confidentiality of Alcohol and Drug AbusePatient Records regulations: The Federal rules restrict any use of the information to criminally investigate or prosecute any alcohol or drug abuse patient.[facility] Encounter Details Date Type Department Care Team (Late st Contact Info) Description 01/03/2025 Patient Msg Neurology [address] [place] [address] [place] [address] [place] [address] Appointment Request Social History Tobacco Use Types Packs/Day Years Used Date Smoking Tobacco: Never Smokeless Tobacco: Never Alcohol Use Standard Drinks/Week Comments No 0 (1 standard drink = 0.6 oz pur e alcohol) PHQ-2 Answer Date Recorded PHQ-2 score 2 12/28/2024 Area Deprivation Index Answer Date Chucky rded National Score (1-100), lower number is lower ri sk 63 09/08/2023 State Score (1-10), lower number is lower risk 4 09/08/2023 Data from: https://www.neighborhoodatlas.[facility]/. Last address used for calculation [id number] 09/08/2023 Comments No Sex and [...] EDT Vita Gibbs (Rn) (Hist), RN * Do you have difficulty dressing or bathing? Answer Date of Assessment Author Yes 08/19/2015 11:02 AM EDT Vita Gibbs (Rn) (Hist), RN * Because of a physical, mental, or emotional condition, do you have difficulty doing errands alone such as visiting a doctor's office or shopping? Answer Date of Assessment Author Yes 08/19/2015 11:02 AM EDT Vita Gibbs (Rn) (Hist), RN documented as of this encounter Mental Status * Because of a physical, mental, or emotional condition, do you have serious difficulty concentrating, remembering, or making decisions? Answer Entry Date Author No 08/19/2015 11:02 AM XANDERT Vita Gibbs (Rn) (Hist), RN documented in this encounter Plan of Treatment Upcoming Encounters Date Type Department Care Team (Late st Contact Info) Description 07/18/2025 10:00 AM EDT Office Visit Neurology [address] [place] [address] [place] [address] [place] [address] Botox 01/09/2026 11:00 AM EST Office Visit Neurology [address] [place] [address] Ross Villar MD, PhD [address] [place] [address] annaul follow up documented as of this encounter Goals Goal Patient Goal Type Associated Problems Recent Progress Patient-Stated? Author Blood Pressure < 130/80 Blood Pressure 123/60( 025 8:03 AM EDT) No Kitty Valente MD documented as of this encounter Visit Diagnoses Not on filedocumented in this encounter Care Teams Data Collection Associate Relationship Specialty Start Date End Date Broderick Joiner DO [address] [place] [address] PCP - General Internal Medicine 09/21/18 Kitty Valente MD [address] [place] [address] Primary Staff Physician Cardiology 01/31/19 documented as of this encounter
--- OUTSIDE RECORDS SUMMARY | 2025-07-04 14:13 | XMS_ITS | Encounter Summary ---
Author Organization [facility] Address [address] [place] [address] Care Team Providers Care Shear Operator Name Role Phone Broderick Joiner DO Primary Care Provider [phone] Encounter Details Date Type Department Care Team (Late st Contact Info) Description 05/30/2024 External Result Encounter [facility] External Department Unsolicited Priyank Mcfadden, PA [address] [place] [address] Social History Tobacco Use Types Packs/Day Years Used Date Smoking Tobacco: Never Smokeless Tobacco: Never Alcohol Use Standard Drinks/Week Comments Not Currently 0 (1 standard drink = 0.6 oz pur e alcohol) Comments Unknown Sex and Gender Information Value Date Recorded Sex Assigned at Not on file Legal Sex Female 6:53 PM EDT Gender Identity Not on file Sexual Orientation Not on file documented as of this encounter Plan of Treatment Not on file documented as of this encounter Procedures Procedure Name Priority Date/Time Associated Diagnosis Comments MR LUMBAR SPINE WO CONTRAST 05/30/2024 10:06 AM EDT documented in this encounter Results * MR lumbar spine wo contrast (05/30/2024 10:06 AM EDT) Anatomical Region Laterality Modality Spine, L-spine Magnetic Resonan ce 05/30/2024 10:0 6 AM EDT Impressions 05/30/2024 10:29 AM EDT Similar multilevel discovertebral degenerative changes. Similar levels of mild central canal stenosis and neural foraminal narrowing. Pre-MRI plain film assessment: None Impression dictated by: Rico John M.D.05/30/2024 10:27 AM Dictation Location: [facility]--12 Transcribed By: [facility] 05/30/24 1027 Dictated By: Rico John DO 05/30/24 1006 Signed By: <Electronically signed by Rico John DO in OV> 05/30/24 1027 Narrative 05/30/2024 10:29 AM EDT [facility] Main [place] [address] [place] [address] MRI Report Signed Patient: Cassi Rodrigez MR#: [id number] 8 : 1950 Acct:[id number] Age/Sex: 74 / F ADM Date: 05/30/24 Loc: Room: Type: [facility] Attending Dr: Priyank Mcfadden PA-C Copies to: Priyank Mcfadden PA-C Ordering Provider: Priyank Mcfadden PA-C Date of Service: 05/30/24 MR/MR [...] canal narrowing. MR/MR lumbar spine wo con Procedure Note Radiology, Radiologist, - 05/30/2024 [facility] [place] [address] [place] [address] MRI Report Signed Patient: Cassi RodrigezMR#: [id number] 8 : 1950Acct:[id number] Age/Sex: 74 / FADM Date: 05/30/24 Loc: MR Room:Type: [facility] Attending Dr: Priyank Mcfadden PA-C Copies to: Priyank Mcfadden PA-C Ordering Provider: Priyank Mcfadden PA-C Date of Service: 05/30/24 MR/MR lumbar spine wo con: M54.16 MRI Lumbar Spine withoutcontrast TECHNIQUE: Multiplanar T1 and T2-weighted imaging of lumbar spine obtainedwithout contrast. HISTORY: Chronic back pain with radiation down the legs. Injections 2months ago. Temporary relief. COMPARISON: 03/28/2024 The last [...] distal spinal cord is in adequate position withoutabnormality. Additional findings CONJOINED NERVE ROOT: None Lower thoracic level: Unremarkable L1-2 :Broad-based disc bulge with endplate spurring. Mild central canalnarrowing. Mild bilateral neural foraminal narrowing. L2-3: Broad-based disc bulge. Posterior element hypertrophy. Moderatecentral canal stenosis. Moderate to severe left and moderate right neural foraminal narrowing. L3-4: Broad-based diffuse disc bulge. Posterior element hypertrophy. Mildto moderate central canal stenosis. Moderate bilateral neural foraminal narrowing greater on theright. L4-5: Posterior decompression changes. Circumferential degenerative discbulge. Facet hypertrophy. Mild central canal stenosis. Severe right and moderate left neuralforaminal narrowing. L5-S1: Posterior decompression and intervertebral effusion. Facethypertrophy. Mild bilateral neural foraminal narrowing. No central canal narrowing. MR/MR lumbar spine wo con IMPRESSION: Similar multilevel discovertebral degenerative changes. Similar levels ofmild central canal stenosis and neural foraminal narrowing. Pre-MRI plain film assessment: None Impression dictated by: Rico John M.D.05/30/2024 10:27 AM Dictation Location: [employer] Transcribed By: [facility] 05/30/24 1027 Dictated By: Rico John DO 05/30/24 1006 Signed By: <Electronically signed by Rico John DO in OV> 05/30/24 1027 us Priyank QUINONEZ IMG MRI PROCEDURES Final Resu lt documented in this encounter Visit Diagnoses Not on filedocumented in this encounter Care Teams Shear Operator Relationship Specialty Start Date End Date Broderick Joiner DO PCP - General Internal Medicine 05/03/24 documented as of this encounter
--- OUTSIDE RECORDS SUMMARY | 2025-07-04 14:13 | XMS_ITS | Patient Health Record ---
Author Organization [facility] Address [address] [address] Care Team Providers Care Material Planner Name Role Phone AjayShashi larson Primary Care Provider [phone] Reason For Referral Reason lower [place] j cervical col lar wear prn listhesis c34. Diagnosis 1 Spondylolisthesis (M 43.10) Referral Organization [facility] [id number] Referring Provider First Name Shashi Referring Provider Last Name Ap Referring Provider Speciality Neurosurge Referred Provider Specialty Other Medica l Care Referral Priority Routine Social History Social History Tobacco Use: Social Info Question Answer Notes Tobacco Use/Smoking How long has it been since you last smoked? > 10 years Problems Problem Type SNOMED Code ICD Code Onset Dates Problem Status W/U Status Risk Notes Problem Spondylolisthesis (186455323) Spondylolisthesis (M43.10) Active confirmed Problem Post-laminectomy syndrome (48873696) Post laminectomy syndrome (M96.1) Active confirmed Problem Post-laminectomy syndrome (59684333) Post laminectomy syndrome (M96.1) Active confirmed Problem Sciatica (46674119) Lumbago of l umbar region with sciatica (M54.40) Active confirmed Problem Neurogenic claudication (804889103) Spinal stenosis, lumbar region with neurogenic claudication (M48.062) Active confirmed Encounters Encounter Location Date Provider Diagnosis [facility] [address] [place] [address] 08/02/2024 Shashi De Souza Spondylolisthesis M4 3.10 [facility] [address] [place] [address] 11/22/2024 Shashi De Souza Post laminectomy syn drome M96.1 [facility] [address] [place] [address] 08/30/2024 Shashi De Souza Lumbago of lumbar re gion with sciatica M54.40 [facility] [address] [place] [address] 07/05/2024 Shashi Mossw Post laminectomy syn drome M96.1 [facility] [address] [place] [address] 01/17/2025 Shashi De Souza Post laminectomy syn drome M96.1 [facility] [id number]/[facility] [address] [facility] [address] [place] [address] 08/24/2024 Shashi Rhiew [facility] [id number]/[facility] [address] [facility] [address] [place] [address] 07/24/2024 Shashi Rhiew [facility] [id number]/[facility] [address] [facility] [address] [place] [address] 09/07/2024 Shashi De Souza Lumbago of lumbar re gion with sciatica M54.40 [facility] [id number]/[facility] [address] [facility] [address] [place] [address] 08/30/2024 Shashi De Souza Assessments Encounter Date Diagnosis (ICD Code) Assessment Notes Treatment Notes Treatment Clinical Notes Section Notes 07/05/2024 Post laminectomy syndrome (ICD-10 - M96.1) NUMBER OF DIAGNOSES AND MANAGEMENT OPTIONS: This note was created using voice recognition software and was not corrected for typographical or grammatical errors and may have unintended errors I spent 30 minutes with the patient and with over 50% for direct face to face counseling and coordination of care. Seen and examined with she had surgery 11 months ago at [facility] with doctor who retired she was really not better from her right leg pain 50% back 50% right leg she has had 2 epidural steroid injections. She has hypertension and cancer she is on Coumadin with gastroesophageal reflux disease. She has had symptoms now 11 months. She has a pacemaker and 2 previous back surgeries. She has had 3 previous neck surgeries. NURYS 50 VAS 8. She did have MRI in May with severe nerve root impingement right L4-5. Her second surgery she said was higher up from her first surgery where she looks like instrumented fusion anterior lumbar interbody fusion L5-S1 her second surgery is higher up at L4-5 and possibly higher and I would have to check a CT scan for bone removal. I will check dynamic x-ray for instability flexion-extension spondylolisthesis. She would like to get her images out of at [facility]. She does have pain sleeps in a recliner she can sit an hour she stands 5 minutes with neurogenic claudication walks less than 10 minutes. She may need transforaminal lumbar interbody fusion right L4-5 with previous surgery at the L4-5 where I would expect a lot of scar tissue and she would also need hardware placement at L5-S1 based on intraoperative exploration spinal fusion if she does not have solid fusion from previous surgery Established problems stable as noted above. Amount/Complexity of data reviewed: I reviewed radiology tests as above. I reviewed clinical lab and medicine tests I reviewed and summarized old records and gathered history from someone other than the patient, including] and discussed with another MD health care provider as needed including I performed independent visualization image and reports as noted above. Risk of complications and morbidity/mortalit y is high in this patient with an abrupt change in neurologic status with threat to bodily function and/or life. Other chronic illness noted above. Diagnostic procedures: reviewed above. Management options: to include over the counter drugs, prescription drug management, physical/occupatio nal therapy, possible elective major surgery. 08/02/2024 Spondylolisthesis (ICD-10 - M43.10) NUMBER OF DIAGNOSES AND MANAGEMENT OPTIONS: Risks, benefits and alternatives to surgery were discussed: Risks including bleeding, infection, temporary or permanent numbness, tingling, weakness, paralysis, bowel or bladder dysfunction, leaking of cerebrospinal fluid leading to meningitis, no pain improvement or worsening of pain, future staged surgery, seizure, stroke, blindness, heart attack, blood clot in legs, pulmonary embolism, coma, , or other. Risk of recurrent or residual symptoms and scar tissue formation which cannot be improved by further surgery. [Brain surgery risks include: problems with speech or memory.] [Spinal hardware and instrumentation risks include: hardware failure or breaking of screws or rods or plates requiring revision or removal. Nonfusion or pseudoarthrosis risk is higher with diabetes or tobacco use and may cause enterprise application analyst pain and require future revision, removal or other surgery.] [Staged surgery a possibility including spinal cord stimulation for continuing pain in the back or legs after surgery.] Benefit to include neurologic stabilization to that there is no further loss of function but without promise or guarantee of any improvement as any function already lost may be irreversible from longstanding injury or an injury that was too severe to allow recovery. The goal of surgery would be to prevent you from becoming any worse and losing even more neurological function, such as weakness, numbness or worse pain. Alternatives to be exhausted prior to surgery may include: medication, therapy, interventional pain management, chiropractic, acupuncture, massage therapy. [Possible second opinion at the University level for higher level of care in complicated conditions.] This note was created using voice recognition software and was not corrected for typographical or grammatical errors and may have unintended errors I spent 40 minutes with the patient and with over 50% for direct face to face counseling and coordination of care. Patient seen with continuing with severe back 50% and right leg radiculitis 50% just a tiny bit into the left leg 10% of the legs versus 90% right leg. She has to sleep in a recliner she feels better sitting but she has a lot of trouble standing walking with neurogenic claudication burning stabbing aching down the right leg to the foot NURYS 56 VAS 7. She did have recent CT scan at [facility] July 12 with moderate severe central canal stenosis L2-3 and L3-4. As well as reviewed the postoperative MRI lumbar from [facility]'s March 28 of this year versus preoperative scan last year May 30 her severe L4-5 central canal stenosis improved however she has severe right nerve root impingement foraminal stenosis at L4-5 before and after surgery when she would need that repaired in order to have relief if she fails conservative treatment she has a 6 inch incision in the midline healed she had previous anterior lumbar interbody fusion L5-S1 in the . She will get me the CT scan of the [facility] CAT scan lumbar for review otherwise we went over her MRI films from before and after surgery. At this point because she is already had L4-5 surgery with other surgeon just over a year ago she would need complete facetectomy of the L4-5 right with iatrogenic instability requiring posterolateral arthrodesis with local autograft with microdissection intraoperative fluoroscopy preoperative stereotactic planning and work and possible staged surgery for transforaminal lumbar interbody fusion at L4-5 for mechanical axial back pain or for further adjacent level degeneration with neurogenic claudication with already some pre-existing stenosis as noted on CT scan at L2-3 and L3-4. She would need medical clearance to be off her Coumadin. Established problems stable as noted above. Amount/Complexity of data reviewed: I reviewed radiology tests as above. I reviewed clinical lab and medicine tests I reviewed and summarized old records and gathered history from someone other than the patient, including] and discussed with another MD health care provider as needed including I performed independent visualization image and reports as noted above. Risk of complications and morbidity/mortalit y is high in this patient with an abrupt change in neurologic status with threat to bodily function and/or life. Other chronic illness noted above. Diagnostic procedures: reviewed above. Management options: to include over the counter drugs, prescription drug management, physical/occupatio nal therapy, possible elective major surgery. 08/30/2024 Lumbago of lumbar region with sciatica (ICD-10 - M54.40) NUMBER OF DIAGNOSES AND MANAGEMENT OPTIONS: I am following this patient enterprise application analyst as the primary caregiver for the primary management of this patient's current spinal condition. This note was created using voice recognition software and was not corrected for typographical or grammatical errors and may have unintended errors I spent 40 minutes with the patient and with over 50% for direct face to face counseling and coordination of care. Seen and examined with follow-up CT scan showing severe bilateral nerve root impingement of L4-5 as well as moderate severe bilateral nerve root impingement L3-4 she failed physical therapy before for surgery July of last year and continues with physician directed home exercise program over the last 6 weeks without improvement and I do not recommend further physical therapy at this time she does have history of DVT on Coumadin she will need clearance through Dr. Sawant to be off blood thinner before and after surgery with risk of stroke or heart attack we again reviewed the MRI lumbar spine which shows severe right nerve root impingement with foraminal stenosis and she has previous fusion surgery L5-S1. She standing 5 minutes walking only 10 minutes NURYS 56 VAS 7 she has 6 inch scar midline lumbar for surgery August 03, 2023 50% back pain 50% of life 90% on the right leg versus left sleeping in a recliner difficulty standing and walking with severe pain affecting her quality of life and unable to do activities of daily living such as anything related to standing or walking even around the house and history of cancer. Plan for laminectomy facetectomy complete foraminotomy for severe foraminal stenosis nerve root impingement L4-5 right iatrogenic instability from complete facetectomy for posterolateral arthrodesis of L4-5 as well I will check her previous fusion surgery at L5-S1 with any further work to be done based on intraoperative findings and plan for L4-5 laminectomy facetectomy foraminotomy posterolateral arthrodesis with local autograft microdissection intraoperative fluoroscopy preoperative stereotactic planning and work with microdissection and micro technique in addition to the exploration of her previous fusion surgery to determine if any further surgery is required including instrumentation Established problems stable as noted above. Amount/Complexity of data reviewed: I reviewed radiology tests as above. I reviewed clinical lab and medicine tests I reviewed and summarized old records and gathered history from someone other than the patient, including] and discussed with another MD health care provider as needed including I performed independent visualization image and reports as noted above. Risk of complications and morbidity/mortalit y is high in this patient with an abrupt change in neurologic status with threat to bodily function and/or life. Other chronic illness noted above. Diagnostic procedures: reviewed above. Management options: to include over the counter drugs, prescription drug management, physical/occupatio nal therapy, possible elective major surgery. 09/07/2024 Lumbago of lumbar region with sciatica (ICD-10 - M54.40) 11/22/2024 Post laminectomy syndrome (ICD-10 - M96.1) 01/17/2025 Post laminectomy syndrome (ICD-10 - M96.1) Plan Of Treatment Pending Test Test Name Order Date CT LUMBAR SPINE WO 07/05/2024 CT LUMBAR SPINE WO 09/07/2024 XR LUMBAR SPINE W FLEX. AND EXT. 5V 06/16 Insurance Providers Payer Name Payer Address Payer Phone Subscriber Number Group Number Insured Name Patient Relationship to Insured Coverage Start Date Coverage End Date [employer] [address] [place] [phone] [id number] Cassi Rodrigez Self - patient is the insured
--- OUTSIDE RECORDS SUMMARY | 2025-07-04 14:13 | XMS_ITS | Encounter Summary ---
Author Organization [facility] Address [address] [place] [address] Care Team Providers Care Supervisor Ski Production Name Role Phone RhysBroderick Primary Care Provider [phone] Kitty Valente MD Unavailable Un available Source Comments In the event this information is protected by the Federal Confidentiality of Alcohol and Drug AbusePatient Records regulations: The Federal rules restrict any use of the information to criminally investigate or prosecute any alcohol or drug abuse patient.[facility] Encounter Details Date Type Department Care Team (Late st Contact Info) Description 08/26/2022 Patient Msg Cardiology [address] [phone] ProviderLorrie missed remote 08/21/22 Social History Tobacco Use Types Packs/Day Years Used Date Smoking Tobacco: Never Smokeless Tobacco: Never Alcohol Use Standard Drinks/Week Comments No 0 (1 standard drink = 0.6 oz pur e alcohol) PHQ-2 Answer Date Recorded PHQ-2 score 2 09/18/2021 Area Deprivation Index Answer Date Chucky rded National Score (1-100), lower number is lower ri sk Not on file 10/20/2020 State Score (1-10), lower number is lower risk N ot on file 10/20/2020 Data from: https://www.neighborhoodatlas.medicine.[facility]/. Last address used for calculation Not on file 10/20/2020 Comments No Sex and Gender Information Value [...] AM XANDERT Vita Gibbs) (Hist), RN * Are you blind or do you have serious difficulty seeing, even when wearing glasses? Answer Date of Assessment Author No 08/19/2015 11:02 AM Vita Elizondo) (Hist), RN * Do you have serious difficulty walking or climbing stairs? Answer Date of Assessment Author No 08/19/2015 11:02 AM Vita Elizondo) (Hist), RN * Do you have difficulty dressing or bathing? Answer Date of Assessment Author Yes 08/19/2015 11:02 AM XANDERT Vita Gibbs) (Hist), RN * Because of a physical, mental, or emotional condition, do you have difficulty doing errands alone such as visiting a doctor's office or shopping? Answer Date of Assessment Author Yes 08/19/2015 11:02 AM Vita Elizondo) (Hist), RN documented as of this encounter [...] 07/18/2025 10:00 AM EDT Office Visit Neurology [address] [place] [address] [place] [address] [place] [address] Botox 01/09/2026 11:00 AM EST Office Visit Neurology [address] [place] [id number] Ross Villar MD, PhD [address] [place] [address] annaul follow up documented as of this encounter Visit Diagnoses Not on filedocumented in this encounter Care Teams Supervisor Ski Production Relationship Specialty Start Date End Date Broderick Joiner DO [address] [place] [address] PCP - General Internal Medicine 09/21/18 Kitty Valente MD [address] [place] [address] Primary Staff Physician Cardiology 01/31/19 documented as of this encounter
--- OUTSIDE RECORDS SUMMARY | 2025-07-04 14:13 | XMS_ITS | Encounter Summary ---
Author Organization [facility] Address [address] [place] [address] Care Team Providers Care Transaction Advisory Services Manager Name Role Phone Broderick Joiner Primary Care Provider [phone] Kitty Valente MD Unavailable Un available Source Comments In the event this information is protected by the Federal Confidentiality of Alcohol and Drug AbusePatient Records regulations: The Federal rules restrict any use of the information to criminally investigate or prosecute any alcohol or drug abuse patient.[facility] Reason for Visit * Reason Onset Date Comments Refill Request 06/22/2025 Encounter Details Date Type Department Care Team (Late st Contact Info) Description 06/22/2025 Refill Neurology [address] [place] [address] Lauren Otero, CONNIE.WIRE TURNING MACHINE OPERATOR [address] [place] [address] Refill Request Social History Tobacco Use Types Packs/Day [...] is lower risk 4 09/08/2023 Data from: https://www.neighborhoodatlas.[facility]/. Last address used for calculation [address] [...] AM EDT Vita Gibbs) (Hist), RN * Do you [...] Gibbs) (Hist), RN documented in this encounter Miscellaneous Notes * Telephone Encounter - Daniel Agosto APRN.WIRE TURNING MACHINE OPERATOR - 06/22/2025 4:39 PM EDT The following approved medication requests have been transmitted electronically. Requested Prescriptions Signed Prescriptions Disp Refills zonisamide (ZONEGRAN) 100 mg capsule 270 capsule 1 Sig: Take 3 capsules by mouth daily at bedtime. Authorizing Provider: DANIEL AGOSTO APRN.CNP * Telephone Encounter - Christiana Dawson - 06/22/2025 4:33 PM EDT Prescription Refill: Requested by: patient Please E-Scribe Caller Contact Number: [facility]: [facility] [place] Pharmacy Number: [phone] Generic/ brand: generic 30 or 90 day supply requested: 90 Last appointment: 01/04/2025 Next Appointment: 01/09/[address] Villar Cassi Rodrigez [phone] [place] [address] documented in this encounter Plan of Treatment Upcoming Encounters Date Type Department Care Team (Late st Contact Info) Description 07/18/2025 10:00 AM EDT Office Visit Neurology [address] [place] [address] [place] [address] [place] [address] Botox 01/09/2026 11:00 AM EST Office Visit Neurology [address] [place] [address] Ross Villar MD, PhD [address] [place] [address] annaul follow up documented as of this encounter Goals Goal Patient Goal Type Associated Problems Recent Progress Patient-Stated? Author Blood Pressure < 130/80 Blood Pressure 123/60( 025 8:03 AM EDT) No Kitty Valente MD documented as of this encounter Visit Diagnoses Diagnosis Localization-related (focal) (partial) symptomatic epilepsy and epileptic syndromes with complex partial seizures, intractable, without status epilepticus (HCC) documented in this encounter Care Teams Transaction Advisory Services Manager Relationship Specialty Start Date End Date Broderick Joiner DO [address] [id number] PCP - General Internal Medicine 09/21/18 Kitty Valente MD [address] [place] [address] Primary Staff Physician Cardiology 01/31/19 documented as of this encounter
--- OUTSIDE RECORDS SUMMARY | 2025-07-04 14:13 | XMS_ITS | Encounter Summary ---
Author Organization [facility] Address [address] [place] [address] Care Team Providers Care Diamond Selector Name Role Phone Broderick Joiner DO Primary Care Provider [phone] Kitty Valente MD Unavailable Un available Source Comments In the event this information is protected by the Federal Confidentiality of Alcohol and Drug AbusePatient Records regulations: The Federal rules restrict any use of the information to criminally investigate or prosecute any alcohol or drug abuse patient.[facility] Reason for Visit * Reason Comments patient update Encounter Details Date Type Department Care Team (Late st Contact Info) Description 11/30/2024 Telephone Neurology [address] [place] [address] [place] [address] [place] [id number] patient update Social History Tobacco Use Types Packs/Day Years Used Date Smoking Tobacco: Never Smokeless Tobacco: Never Alcohol Use Standard Drinks/Week Comments No 0 (1 standard drink = 0.6 oz pur e alcohol) PHQ-2 Answer Date Recorded PHQ-2 score 2 08/30/2024 Area Deprivation Index Answer Date Chucky rded National Score (1-100), lower number is lower ri 63 09/08/2023 State Score (1-10), lower number is lower risk 4 09/08/2023 Data from: https://www.neighborhoodatlas.[facility]/. Last address used for calculation [address] [...] Assessment Author No 08/19/2015 11:02 AM Vita Elizondo (Rn) (Hist), RN * Are you blind or do you have serious difficulty seeing, even when wearing glasses? Answer Date of Assessment Author No 08/19/2015 11:02 AM Vita Elizondo (Rn) (Hist), RN * Do you have serious difficulty walking or climbing stairs? Answer Date of Assessment Author No 08/19/2015 11:02 AM Vita Elizondo (Rn) (Hist), RN * Do you have difficulty dressing or bathing? Answer Date of Assessment Author Yes 08/19/2015 11:02 AM Vita Elizondo (Rn) (Hist), RN * Because of a physical, mental, or emotional condition, do you have difficulty doing errands alone such as visiting a doctor's office or shopping? Answer Date of Assessment Author Yes 08/19/2015 11:02 AM Vita Elizondo (Aleksandar) (Hist), RN documented as of this encounter Mental Status * Because of a physical, mental, or emotional condition, do you have serious difficulty concentrating, remembering, or making decisions? Answer Entry Date Author No 08/19/2015 11:02 AM Vita Elizondo (Rn) (Hist), RN documented in this encounter Miscellaneous Notes * Telephone Encounter - Genevieve Salvador RN - 12/04/2024 2:34 PM EST Turner is insurance listed as primary in chart. Called patient to confirm that this is correct. Patient confirms [employer] is current coverage. Informed patient that PA was sent in by prior auth team and no authorization is required at this time. * Telephone Encounter - Martjennifer HagenMarlyn - 11/30/2024 2:24 PM EST Patient called stating she has new insurance. (She was sent to registration to update) she has a botox appointment on 12/12/24 that will need to be re-authorized. documented in this encounter Plan of Treatment Upcoming Encounters Date Type Department Care Team (Late st Contact Info) Description 07/18/2025 10:00 AM EDT Office Visit Neurology [address] [place] [address] [place] [address] [address] [place] [address] Botox 01/09/2026 11:00 AM EST Office Visit Neurology [address] [facility] [place] [address] Ross Villar MD, PhD [address] [place], [place] [phone] annaul follow up documented as of this encounter Goals Goal Patient Goal Type Associated Problems Recent Progress Patient-Stated? Author Blood Pressure < 130/80 Blood Pressure 123/60( 025 8:03 AM EDT) No Kitty Valente MD documented as of this encounter Visit Diagnoses Not on filedocumented in this encounter Care Teams Diamond Selector Relationship Specialty Start Date End Date Broderick Joiner DO [address] [place] [address] PCP - General Internal Medicine 09/21/18 Kitty Valente MD [address] [facility] [place] [place] [address] Primary Staff Physician Cardiology 01/31/19 documented as of this encounter
--- OUTSIDE RECORDS SUMMARY | 2025-07-04 14:13 | XMS_ITS ---
Author Organization [facility] Address [address] [place] [address] Care Team Providers Care Appliquer Zigzag Name Role Phone Broderick Joiner Primary Care Provider [phone] Kitty Valente MD Unavailable Un available Active Problems * This document contains information received from the source organization and may not represent a complete record from that organization. 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 Past Treatment and Therapy Plans NON-CHEMO 1 Plan Name Start Date Discontinue Date Treatment Medications Discontinue Reason Plan Provider Cycles CENTRAL LINE FLUSH - Weekly x 24 weeks 10/20/2012 05/14/2015 No medications scheduled. Treatment Complete Susan Haider, WILIAN 1 of 1 cycle started Resolved Problems Problem Noted Date Diagnosed Date Resolved Date Seizure 01/24/2015 06/21/2018
--- OUTSIDE RECORDS SUMMARY | 2025-07-04 14:13 | XMS_ITS | Encounter Summary ---
Author Organization [facility] Address [address] [place] [address] Care Team Providers Care Glassine Machine Tender Name Role Phone RhysBroderick Aldair MCKEON Primary Care Provider [phone] Kitty Valente MD Unavailable Un available Source Comments In the event this information is protected by the Federal Confidentiality of Alcohol and Drug AbusePatient Records regulations: The Federal rules restrict any use of the information to criminally investigate or prosecute any alcohol or drug abuse patient.[facility] Encounter Details Date Type Department Care Team (Late st Contact Info) Description 12/08/2023 Patient Msg Neurology [address] [place] [phone] Provider, Ccf refill Social History Tobacco Use Types Packs/Day Years [...] is lower risk 4 09/08/2023 Data from: https://www.neighborhoodatlas.medicine.[facility].edu/. Last address used for calculation [address] [...] 07/18/2025 10:00 AM EDT Office Visit Neurology [address] [place] [address] [place] [address] [address]/[facility] [place] [address] Botox 01/09/2026 11:00 AM EST Office Visit Neurology [address] [place] [phone] Ross Villar MD, PhD [address] [place] [address] annaul follow up documented as of this encounter Visit Diagnoses Not on filedocumented in this encounter Care Teams Glassine Machine Tender Relationship Specialty Start Date End Date Broderick Joiner DO [address] [place] [address] PCP - General Internal Medicine 09/21/18 Kitty Valente MD [address] [place] [address] Primary Staff Physician Cardiology 01/31/19 documented as of this encounter
--- OUTSIDE RECORDS SUMMARY | 2025-07-04 14:13 | XMS_ITS | Encounter Summary ---
Author Organization [facility] Address [address] [place] [address] Care Team Providers Care Pay Per Click Strategist Name Role Phone Broderick Joiner Primary Care Provider [phone] Kitty Valente MD Unavailable Un available Source Comments In the event this information is protected by the Federal Confidentiality of Alcohol and Drug AbusePatient Records regulations: The Federal rules restrict any use of the information to criminally investigate or prosecute any alcohol or drug abuse patient.[facility] Encounter Details Date Type Department Care Team (Late st Contact Info) Description 01/04/2025 Patient Msg Neurology [address] [phone] Ross Villar MD, PhD [address] [place] [address] ACTION REQUIRED: Please complete your COGNITIVE ASSESSMENT Social History Tobacco Use Types Packs/Day Years [...] risk 4 09/08/2023 Data from: https://www.neighborhoodatlas.[facility]/. Last address used for calculation [address] [...] AM EDT Vita GibbsRn) (Hist), RN * Do you have difficulty dressing or bathing? Answer Date of Assessment Author Yes 08/19/2015 11:02 AM XANDERT Vita GibbsRn) (Hist), RN * Because of a physical, mental, or emotional condition, do you have difficulty doing errands alone such as visiting a doctor's office or shopping? Answer Date of Assessment Author Yes 08/19/2015 11:02 AM EDT Vita GibbsRn) (Hist), RN documented as of [...] 07/18/2025 10:00 AM EDT Office Visit Neurology [address] [place] [address] [place] [address] [address]/[facility] [place] [address] Botox 01/09/2026 11:00 AM EST Office Visit Neurology [address] [place] [address] Ross Villar MD, PhD [address] [place] [address] annaul follow up documented as of this encounter Goals Goal Patient Goal Type Associated Problems Recent Progress Patient-Stated? Author Blood Pressure < 130/80 Blood Pressure 123/60( 025 8:03 AM EDT) No Kitty Valente MD documented as of this encounter Visit Diagnoses Not on filedocumented in this encounter Care Teams Pay Per Click Strategist Relationship Specialty Start Date End Date Broderick Joiner DO [address] [place] [address] PCP - General Internal Medicine 09/21/18 Kitty Valente MD [address] [place] [address] Primary Staff Physician Cardiology 01/31/19 documented as of this encounter
--- OUTSIDE RECORDS SUMMARY | 2025-07-04 14:13 | XMS_ITS | Encounter Summary ---
Author Organization [facility] Address [address] [place] [address] Care Team Providers Care Ocean Freight Agent Name Role Phone MorenaLeo snowGerardo Primary Care Provider [phone] Shashi Lisa DO Primary Care Provider Broderick Joiner DO Primary Care Provider [phone] Kitty Valente MD Unavailable Un available Kitty [...] Care Team (Late st Contact Info) Description 04/19/2015 Patient Msg Medical Records [facility] [place] [address] Provider, Ccf Your virtual after visit summary Social History Tobacco Use Types Packs/Day Years [...] hearing? Answer Date of Assessment Author No 04/10/2015 1:39 PM EDT Eva Kim Ma * Are you blind or do you have serious difficulty seeing, even when wearing glasses? Answer Date of Assessment Author Yes 04/10/2015 1:39 PM EDT Eva Kim Ma * Do you have serious difficulty walking or climbing stairs? Answer Date of Assessment Author Yes 04/10/2015 1:39 PM EDT Eva Kim Ma * Do you have difficulty dressing or bathing? Answer Date of Assessment Author No 04/10/2015 1:39 PM EDT Vanesa Kim Maan Galo * Because of a physical, mental, or emotional condition, do you have difficulty doing errands alone such as visiting a doctor's office or shopping? Answer Date of Assessment Author Yes 04/10/2015 1:39 PM EDT Eva Kim Ma documented as of this encounter Mental Status * Because of a physical, mental, or emotional condition, do you have serious difficulty concentrating, remembering, or making decisions? Answer Entry Date Author Yes 04/10/2015 1:39 PM EDT Eva Kim Ma documented in this encounter Plan of Treatment Upcoming Encounters Date Type Department Care Team (Late st Contact Info) Description 07/18/2025 10:00 AM EDT Office Visit Neurology [address] [place] [address] [place] [address] [place] [address] Botox 01/09/2026 11:00 AM EST Office Visit Neurology [address] [place] [phone] Ross Villar MD, PhD [address] [place] [address] annaul follow up documented as of this encounter Visit Diagnoses Not on filedocumented in this encounter Care Teams Ocean Freight Agent Relationship Specialty Start Date End Date Leo Fierro [address] [place] [phone] PCP - General Family Medicine 01/23/11 11/14/16 Shashi Lisa DO [address] [place] [address] PCP - General Family Medicine 11/15/16 09/20/18 Broderick Joiner DO [address] [place] [address] PCP - General Internal Medicine 09/21/18 Kitty Valente MD [address] [place] [address] Primary Staff Physician Cardiology 01/31/1901/31 Kitty Valente MD [address] [place] [address] Primary Staff Physician Cardiology 01/31/19 documented as of this encounter
--- OUTSIDE RECORDS SUMMARY | 2025-07-04 14:13 | XMS_ITS | Clinical Summary ---
Author Organization [facility] Address [address] [place] [address] Phone Care Team Providers Care Pricing Intern Name Role Phone Unavailable Primary Care Provider Unavailabl e Social History Tobacco Use Types Packs/Day Years Used Date Smoking Tobacco: Never Assessed Comments Unknown Sex and Gender Information Value Date Recorded Sex Assigned at Not on file Legal Sex Female 9:01 PM EST Gender Identity Not on file Sexual Orientation Not on file Plan of Treatment Health Maintenance Due Date Last Done Comments CT Colonography 1950 Colonoscopy 1950 Colorectal Cancer Screening 1950 FIT-DNA (Cologuard) 1950 FIT 1950 Lipid Panel 1950 Medicare Annual Wellness Vis it (AWV) 1950 Sigmoidoscopy 1950 MMR Vaccines (1 of 1 - Stand jeffrey series) 1951 Hepatitis C Screening 1968 DTaP/Tdap/Td Vaccines (1 - Tdap) 1972 Pneumococcal Vaccine (1 of 1 - PCV) 2000 Zoster Vaccines (1 of 2) 2000 Bone Density Scan 2015 COVID-19 Vaccine ( - 2023-2 5 season) 2024 RSV High Risk: (Elderly (60+ ) or Population) (1 - 1-dose 75+ series) 2025 Influenza Vaccine (#1) 2025 HIB Vaccines Aged Out No longer eligi ble based on patient's age to complete this topic HPV Vaccines Aged Out No longer eligi ble based on patient's age to complete this topic Hepatitis A Vaccines Aged Out No long er eligible based on patient's age to complete this topic Hepatitis B Vaccines Aged Out No long er eligible based on patient's age to complete this topic IPV Vaccines Aged Out No longer eligi ble based on patient's age to complete this topic Meningococcal Vaccine Aged Out No daisha mason eligible based on patient's age to complete this topic Rotavirus Vaccines Aged Out No longer eligible based on patient's age to complete this topic Insurance UrGift UrGift
--- OUTSIDE RECORDS SUMMARY | 2025-07-04 14:13 | XMS_ITS | Encounter Summary ---
Author Organization [facility] Address [address] [place] [address] Care Team Providers Care Agronomy Teacher Name Role Phone RhysBroderick Primary Care Provider Kitty Valente MD Unavailable Un available Source Comments In the event this information is protected by the Federal Confidentiality of Alcohol and Drug AbusePatient Records regulations: The Federal rules restrict any use of the information to criminally investigate or prosecute any alcohol or drug abuse patient.[facility] Encounter Details Date Type Department Care Team (Late st Contact Info) Description 06/02/2021 Patient Msg Cardiology [address] [place] [phone] ProviderLorrie Missed remote transmission Social History Tobacco Use Types Packs/Day Years Used Date Smoking Tobacco: Never Smokeless Tobacco: Never Alcohol Use Standard Drinks/Week Comments No 0 (1 standard drink = 0.6 oz pur e alcohol) PHQ-2 Answer Date Recorded PHQ-2 score 4 11/20/2019 Area Deprivation Index Answer Date Chucky rded National Score (1-100), lower number is lower ri sk Not on file 10/20/2020 State Score (1-10), lower number is lower risk N ot on file 10/20/2020 Data from: https://www.neighborhoodatlas.medicine.[place].edu/. Last address used for calculation Not on [...] AM XANDERT Vita GibbsRn) (Hist), RN * Are you blind or do you have serious difficulty seeing, even when wearing glasses? Answer Date of Assessment Author No 08/19/2015 11:02 AM Vita Elizondo (Rn) (Hist), RN * Do you have serious difficulty walking or climbing stairs? Answer Date of Assessment Author No 08/19/2015 11:02 AM Vita ElizondoRn) (Hist), RN * Do you have difficulty [...] 07/18/2025 10:00 AM EDT Office Visit Neurology [address] [place] [address] [place] [address] [address]/[facility] [place] [address] Botox 01/09/2026 11:00 AM EST Office Visit Neurology [address] [place] [phone] Ross Villar MD, PhD [address] [place] [address] annaul follow up documented as of this encounter Visit Diagnoses Not on filedocumented in this encounter Care Teams Agronomy Teacher Relationship Specialty Start Date End Date Broderick Joiner DO [address] [place] [address] PCP - General Internal Medicine 09/21/18 Kitty Valente MD [address] [place] [address] Primary Staff Physician Cardiology 01/31/19 documented as of this encounter
--- OUTSIDE RECORDS SUMMARY | 2025-07-04 14:13 | XMS_ITS | Encounter Summary ---
Author Organization [facility] Address [address] [place] [address] Care Team Providers Care Geological Technical Officer Name Role Phone MorenaLeo snowGerardo Primary Care Provider [phone] Shashi Lisa DO Primary Care Provider Broderick Joiner DO Primary Care Provider [phone] Kitty Valenet MD Unavailable Un available Kitty Valente MD Unavailable Un available Source Comments In the event this information is protected by the Federal Confidentiality of Alcohol and Drug AbusePatient Records regulations: The Federal rules restrict any use of the information to criminally investigate or prosecute any alcohol or drug abuse patient.[facility] Encounter Details Date Type Department Care Team (Late st Contact Info) Description 10/06/2015 Patient Msg Medical Records [facility] [place] [address] Provider, Ccf Levetiracetam (Keppra) level Social History Tobacco Use Types Packs/Day Years [...] 11:02 AM Vita ElizondoRn) (Hist), RN * Are you blind or [...] 11:02 AM Vita Elizondo) (Hist), RN * Because of a physical, [...] Date Author No 08/19/2015 11:02 AM Vita Elizondo) (Hist), RN documented in this encounter Plan of Treatment Upcoming Encounters Date Type Department Care Team (Late st Contact Info) Description 07/18/2025 10:00 AM EDT Office Visit Neurology [address] [place] [address] [place] [address] [address] [place] [address] Botox 01/09/2026 11:00 AM EST Office Visit Neurology [address] [place] [phone] Ross Villar MD, PhD [address] [place] [address] annaul follow up documented as of this encounter Visit Diagnoses Not on filedocumented in this encounter Care Teams Geological Technical Officer Relationship Specialty Start Date End Date Leo Fierro [address] [place] [phone] PCP - General Family Medicine 01/23/11 11/14/16 Shashi Lisa DO [address] [place] [address] PCP - General Family Medicine 11/15/16 09/20/18 Broderick Joiner DO [address] [place] [address] PCP - General Internal Medicine 09/21/18 Kitty Valente MD [address] [place] [address] Primary Staff Physician Cardiology 01/31/1901/31 Kitty Valente MD [address] [place] [address] Primary Staff Physician Cardiology 01/31/19 documented as of this encounter
--- OUTSIDE RECORDS SUMMARY | 2025-07-04 14:13 | XMS_ITS | Encounter Summary ---
Author Organization [facility] Address [address] [place] [address] Care Team Providers Care Customer Engagement Analyst Name Role Phone RhysBroderick Primary Care Provider [phone] Kitty Valente MD Unavailable Un available Source Comments In the event this information is protected by the Federal Confidentiality of Alcohol and Drug AbusePatient Records regulations: The Federal rules restrict any use of the information to criminally investigate or prosecute any alcohol or drug abuse patient.[facility] Encounter Details Date Type Department Care Team (Late st Contact Info) Description 11/03/2024 Patient Msg Cardiology [address] [place] [phone] Provider, Ccf Remote Monitoring Social History Tobacco Use Types Packs/Day Years [...] is lower risk 4 09/08/2023 Data from: https://www.neighborhoodatlas.medicine.[facility].edu/. Last address used for calculation [...] Author No 08/19/2015 11:02 AM EDT Vita iGbbsRn) (Hist), RN * Are you blind or [...] 07/18/2025 10:00 AM EDT Office Visit Neurology [address] [place] [address] [place] [address] [address]/[facility] [place] [address] Botox 01/09/2026 11:00 AM EST Office Visit Neurology [address] [place] [phone] Ross Villar MD, PhD [address] [place] [address] annaul follow up documented as of this encounter Goals Goal Patient Goal Type Associated Problems Recent Progress Patient-Stated? Author Blood Pressure < 130/80 Blood Pressure 123/60( 025 8:03 AM EDT) No Kitty Valente MD documented as of this encounter Visit Diagnoses Not on filedocumented in this encounter Care Teams Customer Engagement Analyst Relationship Specialty Start Date End Date Broderick Joiner DO [address] [place] [address] PCP - General Internal Medicine 09/21/18 Kitty Valente MD [address] [place] [address] Primary Staff Physician Cardiology 01/31/19 documented as of this encounter
--- OUTSIDE RECORDS SUMMARY | 2025-07-04 14:13 | XMS_ITS | Encounter Summary ---
Author Organization [facility] Address [address] [place] [address] Care Team Providers Care Dulser Name Role Phone RhysBroderick Primary Care Provider [phone] Kitty Valente MD Unavailable Un available Source Comments In the event this information is protected by the Federal Confidentiality of Alcohol and Drug AbusePatient Records regulations: The Federal rules restrict any use of the information to criminally investigate or prosecute any alcohol or drug abuse patient.[facility] Encounter Details Date Type Department Care Team (Late st Contact Info) Description 09/15/2021 Patient Msg Cardiology [address] [phone] ProviderLorrie missed remote transmission Social History Tobacco Use Types [...] 07/18/2025 10:00 AM EDT Office Visit Neurology [address] [place] [address] [place] [address] [address]/[facility] [place] [address] Botox 01/09/2026 11:00 AM EST Office Visit Neurology [address] [place] [phone] Ross Villar MD, PhD [address] [place] [address] annaul follow up documented as of this encounter Visit Diagnoses Not on filedocumented in this encounter Care Teams Dulser Relationship Specialty Start Date End Date Broderick Joiner DO [address] [place] [address] PCP - General Internal Medicine 09/21/18 Kitty Valente MD [address] [place] [address] Primary Staff Physician Cardiology 01/31/19 documented as of this encounter
--- OUTSIDE RECORDS SUMMARY | 2025-07-04 14:27 | XMS_ITS | CCD ---
Author Organization [facility] Care Team Providers Care Air Conditioning Specialist Name Role Phone Bertram Sanders Unavailable Broderick Howard DO Primary Care Provider Romeo Millard MD, Kitty Unavailable Un available Broderick Howard DO Primary Care Provider Romeo Millard MD, Kitty Unavailable Un available Broderick Howard Unavailable FAWWAD, AGUILAR H Admitting Unavailable BALL, DR ROSAS Primary Care Unavailable FAWWAD, AGUILAR H Attending Unavailable FAWWAD, AGUILAR H Attending Unavailable FAWWAD, AGUILAR H Admitting Unavailable BALL, DR ROSAS Primary Care Unavailable FAWWAD, AGUILAR H Admitting Unavailable BALL, DR ROSAS Primary Care Unavailable FAWWAD, AGUILAR H Attending Unavailable BALL, DR ROSAS Primary Care Unavailable BALL, DR ROSAS Consulting Unavailable BALL, DR ROSAS Attending Unavailable BALL, DR ROSAS Admitting Unavailable FAWWAD, AGUILAR H Attending Unavailable BALL, DR ROSAS Primary Care Unavailable FAWWAD, AGUILAR H Admitting Unavailable BALL, DR ROSAS Primary Care Unavailable BALL, DR ROSAS Consulting Unavailable BALL, DR ROSAS Attending Unavailable BALL, DR ROSAS Admitting Unavailable WEST, DR EBEN Gallegos Consulting Unavailable FAWWAD, AGUILAR H Attending Unavailable FAWWAD, AGUILAR H Admitting Unavailable BALL, DR ROSAS Primary Care Unavailable FAWWAD, AGUILAR H Attending Unavailable BALL, DR ROSAS Primary Care Unavailable FAWWAD, AGUILAR H Admitting Unavailable FAWWAD, AGUILAR H Attending Unavailable BALL, DR ROSAS Primary Care Unavailable FAWWAD, AGUILAR H Admitting Unavailable FAWWAD, AGUILAR H Admitting Unavailable BALL, DR ROSAS Primary Care Unavailable FAWWAD, AGUILAR H Attending Unavailable BALL, DR ROSAS Primary Care Unavailable FAWWAD, AGUILAR H Attending Unavailable FAWWAD, AGUILAR H Admitting Unavailable FAWWAD, AGUILAR H Attending Unavailable FAWWAD, AGUILAR H Admitting Unavailable BALL, DR ROSAS Primary Care Unavailable FAWWAD, H Attending Unavailable FAWWAD, AGUILAR H Admitting Unavailable BALL, DR ROSAS Primary Care Unavailable BALL, DR ROSAS Primary Care Unavailable BALL, DR ROSAS Consulting Unavailable BALL, DR ROSAS Attending Unavailable BALL, DR ROSAS Admitting Unavailable BALL, DR ROSAS Admitting Unavailable BALL, DR ROSAS Primary Care Unavailable BALL, DR ROSAS Attending Unavailable BALL, DR ROSAS Primary Care Unavailable BALL, DR ROSAS Consulting Unavailable BALL, DR ROSAS Admitting Unavailable BALL, DR ROSAS Attending Unavailable WEST, DR EBEN Gallegos Consulting Unavailable BALL, DR ROSAS Primary Care Unavailable BALL, DR ROSAS Consulting Unavailable BALL, DR ROSAS Admitting Unavailable BALL, DR ROSAS Attending Unavailable Ball, DO Broderick Primary Care Provider Ball, DO Broderick Attending Provider Niki Weeks Unavailable MD Niki Weeks Attending Provider Romeo Millard MD, Kitty Unavailable Un available Ball DOBroderick Primary Care Provider Ball, DO Broderick Primary Care Provider Ball, DO Broderick Attending Provider WILIAN Mcfadden Attending Provider [phone] Ball, DO Broderick Primary Care Provider Lee, DO Broderick Attending Provider Kasey PAUL, Keith Barron Attending Unavailable Kasey PAUL, Keith Barron Attending Unavailable Ball, DO Broderick Primary Care Provider Ball, DO Broderick Attending Provider Ball, DO Broderick Primary Care Provider LEE, BRODERICK Primary Care Physician Shashi De Souza Referring Unavailable Rhiew, Shashi B Admitting Unavailable Rhiew, Shashi Barragan Attending Unavailable Rhmerlynw, Shashi B Referring Unavailable Rhiew, Shashi Barragan Admitting Unavailable Rhiew, Shashi Barragan Attending Unavailable Rhiew, Shashi B Admitting Unavailable Rhiew, Shashi B Attending Unavailable RhiewShashi Referring Unavailable Rhiew, Shashi Barragan Admitting Unavailable Rhiew, Shashi Barragan Attending Unavailable Rhiew, Shashi Barragan Referring Unavailable OJUKWU, Mbanefo Consulting Unavailable OJUKWJulio C, Mbanefo Consulting Unavailable OJUKWU, Mbanefo Consulting Unavailable OJUKWU, Mbanefo Consulting Unavailable OJUKWU, Mbanefo Consulting Unavailable OJUKWU, Mbanefo Consulting Unavailable OJUKWU, Mbanefo Consulting Unavailable OJUKWU, Mbanefo Consulting Unavailable OJUKWU, Mbanefo Consulting Unavailable OJUKWU, Mbanefo Consulting Unavailable Rhiew, Shashi Barragan Admitting Unavailable Rhiew, Shashi Barragan Attending Unavailable Rhiew, Shashi Barragan Referring Unavailable OJUKWJulio C, Mbanefo Consulting Unavailable OJUKWU, Mbanefo Consulting Unavailable OJUKWU, Mbanefo Consulting Unavailable OJUKWU, Mbanefo Consulting Unavailable OJUKWU, Mbanefo Consulting Unavailable OJUKWU, Mbanefo Consulting Unavailable OJUKWU, Mbanefo Consulting Unavailable OJUKWU, Mbanefo Consulting Unavailable Broderick Howard DO Primary Care Provider Kristel Low APRN Emergency Provider Broderick Howard MD Primary Care Provider AFTAB DEY Attending Unavailable DAVID MCFADDEN Attending Unavailable DAVID MCFADDEN Referring Unavailable KAY, DAVID Gabriel Referring Unavailable JR. SALTER GEORGE C Attending Unavaila AFTAB Duque Attending Unavailable Broderick Howard Attending Unavailable Lee, Broderick Admitting Unavailable Lee, Broderick Primary Care Unavailable David Mcfadden Admitting Unavailable David Mcfadden Attending Unavailable Lee, Broderick Primary Care Unavailable Lee, Broderick Attending Unavailable Lee, Broderick Admitting Unavailable Ball, Broderick Primary Care Unavailable Lee, Broderick Primary Care Unavailable Kristel Low Admitting Unavailable Kristel Low Attending Unavailable Lee, Broderick Admitting Unavailable Lee, Broderick Primary Care Unavailable Lee, Broderick Attending Unavailable Ball Broderick MCKEON Primary Care Provider [phone] Kristel Low APRN Emergency Provider ALEJANDRO VILLAR Referring Unavailable BALL, BRODERICK E Primary Care Unavailable REILLY, RANDA M Attending Unavailable REILLY, RANDA M Referring Unavailable BALL, BRODERICK E Primary Care Unavailable STOKIRILL, ALEJANDRO Hernandez Attending Unavailable BALL, BRODERICK E Primary Care Unavailable SVITLANA MAYFIELD Attending Unavailable REILLY, RANDA M Referring Unavailable BALL, BRODERICK E Primary Care Unavailable REILLY, RANDA M Attending Unavailable REILLY, RANDA M Referring Unavailable BALL, BRODERICK E Primary Care Unavailable REILLY, RANDA M Attending Unavailable REILLY, RANDA M Referring Unavailable BALL, BRODERICK E Primary Care Unavailable STOJIC, ALEJANDRO Hernandez Attending Unavailable BALL, BRODERICK E Primary Care Unavailable KITTY VALENTE Attending Unava ilable BALL, BRODERICK E Primary Care Unavailable ROMEO MILALRDKITTY SAHNI Referring Unava ilable BALL, BRODERICK E Primary Care Unavailable ELIAN JONES Attending Unavailable STOJIC, ALEJANDRO Hernandez Referring Unavailable BALL, BRODERICK E Primary Care Unavailable Broderick Howard DO Primary Care Provider Broderick Howard DO Attending Provider Allergies Allergy Classification Reported Allergen(s) Allergy Type Date of Onset Reaction(s) Facility (20 sources) Dexamethasone; Translations: [dexAMETHasone] Drug Allergy 10-03-20 15 Rash, Unknown [facility] (20 sources) pregabalin; Translations: [pregabalin] Drug Allergy 08-24-20 13 Rash [facility] (20 sources) rifAXIMin Drug Allergy 02-09-20 24 [facility] (1 source) Dexamethasone Drug Allergy [facility] Rep[facility] (6 sources) pregabalin; Translations: [Lyrica] Drug Allergy 11-15-19 08 [facility] Rep[facility] (20 sources) Dexamethasone Drug Allergy 02-08-20 24 Unknown, Unknown Reaction [facility] (8 sources) Allergies Reconciled Propensity to adverse reactions Unknown [facility] Other (8 sources) patient allergy list reviewed by nurse or physicia Propensity to adverse reactions 04-13-20 Comment:Done [facility] Other (3 sources) Pregabalin Allergy to substance 08-24-20 13 Rash, Unknown [facility] (3 sources) rifAXIMin Drug Allergy 04-21-20 [facility] (1 source) Dexamethasone Drug Allergy 12-08-19 [facility] Repository (1 source) pregabalin Drug Allergy 12-08-19 [facility] Repository (1 source) rifAXIMin Drug Allergy 12-08-19 [facility] Repository Medications Current Medications Medication Drug Class(es) Dates Sig (Normalized) Sig (Original) acetaminophen 500 mg oral tablet (20 sources) Start: 10-25-2024 take 500 mg by mouth every six hours as needed for pain Tylenol 500 mg, Oral, q6hr, PRN as needed for pain, Refills(s) 0 Start Date: 10/25/24 Status: Ordered Start: 07-20-2023 End: 02-08-2024 take 2 capsules by mouth every six hours as needed for pain Acetaminophen (Tylenol Extra Strength) 500 mg Capsule Discontinued 1000 MG PO Q6H as needed for Pain July 20, 2023 12:00am February 08, 2024 11:20am acetaminophen 325 mg / oxyCODONE hydrochloride 5 mg oral tablet (1 source) Opioid Agonist Start: 11-02-2024 End: 11-09-2024 Percocet 5 mg-325 mg oral tablet 1 tab(s), Oral, TID Pain 4-7 for 7 day(s), 21 tab(s), Refill(s) 0, [facility]/pharmacy #[id number], 157, cm, 10/25/24 11:44:00 EST, Height/Length Dosing, 87.7, kg, 10/25/24 11:44:00 EST, Weight Dosing Start Date: 11/02/24 Stop Date: 11/09/24 Status: Ordered amitriptyline hydrochloride 50 mg oral tablet (20 sources) Tricyclic Antidepressant Start: 08-29-2024 take 1 tablet by mouth once daily at bedtime Amitriptyline 50 mg tablet Active 50 MG PO Daily at bedtime August 29, 2024 12:00am Take 1 tablet orally at bedtime. Complies with drug therapy Start: 06-08-2024 End: 09-07-2024 Amitriptyline 10 mg tablet Discontinued 25 MG PO Daily at bedtime June 08, 2024 2:28pm September 07, 2024 9:18am Start: 06-08-2024 End: 09-07-2024 take 25 mg by mouth once daily at bedtime Amitriptyline Discontinued 25 MG PO Daily at bedtime June 08, 2024 2:28pm September 07, 2024 9:18am Start: 07-20-2023 amitriptyline (Elavil) 10 MG tablet Daily at bedtime 07/20/2023 Active Start: 07-20-2023 End: 06-08-2024 Amitriptyline 10 mg tablet Discontinued 15 MG PO Daily at bedtime July 20, 2023 12:00am June 08, 2024 2:32pm Start: 07-20-2023 End: 06-08-2024 take 15 mg [...] sources) Dihydropyridine Calcium Channel Dylan Start: take 1 tablet by mouth once daily Amlodipine 5 mg tablet Active 5 MG PO Daily February 22, 2025 10:42am Complies with drug therapy Start: 02-13-2025 End: 02-22-2025 take 1 tablet by mouth once daily in the morning for hypertension Amlodipine 5 mg tablet Discontinued 0 .ROUTE .COMPLEX 90 February 13, 2025 7:42am February 22, 2025 10:43am TAKE 1 TABLET BY MOUTH EVERY MORNING FOR HYPERTENSION Start: 06-23-2022 End: 02-13-2025 take 1 tablet by mouth once daily Amlodipine 5 mg tabl et Discontinued 5 MG PO Daily February 08, 2024 12:00am June 08, 2024 2:29pm Start: 01-06-2021 End: 07-20-2023 take 1 tablet by mouth once daily Amlodipine 10 mg tab let Discontinued 10 MG PO Daily January 06, [...] (20 sources) alpha-Adrenergic Dylan, beta-Adrenergic Dylan Start: take 1 tablet by mouth twice daily Carvedilol 12.5 mg tablet Active 0 .ROUTE .COMPLEX 180 April 01, 2025 5:07pm TAKE 1 TABLET BY MOUTH TWICE A DAY Complies with drug therapy Start: 09-07-2024 End: 04-01-2025 take 1 tablet by mouth twice daily Carvedilol 12.5 mg tablet Discontinued 12.5 MG PO Twice daily September 07, 2024 9:19am April 01, 2025 5:13pm Start: 05-24-2024 End: 09-07-2024 take 1 tablet by mouth twice daily Carvedilol 12.5 mg tablet Discontinued 0 .ROUTE .COMPLEX 180 May 24, 2024 6:47am September 07, 2024 9:21am TAKE 1 TABLET BY MOUTH TWICE A DAY Start: 07-20-2023 End: 05-24-2024 take 1 tablet by mouth twice daily Carvedilol 12.5 mg tablet Discontinued 12.5 MG PO Twice daily February 08, 2024 12:00am May 24, 2024 6:47am Comment on above: Take 12.5 mg by mout h twice daily with meals. dicyclomine hydrochloride 20 mg oral tablet (9 sources) Anticholinergic Start: 023 take 1 tablet by mouth twice daily as needed for pain Dicyclomine HCl 20 MG 1 tablet Orally twice daily as needed for ABD pain for 30 days Apr, Active 1 ml enoxaparin sodium 100 mg/ml prefilled syringe (20 sources) Low Molecular Weight Heparin Start: 024 inject 100 mg by subcutaneous injection every twelve hours enoxaparin 100 mg/mL SubQ Gloria 100 mg, SubCutaneous, q12hr, Bridging with Warfarin for surgery, Refills(s) 0, Blood Thinner Start Date: 11/02/24 Status: Ordered Start: 10-25-2024 inject 90 mg by subc utaneous injection twice daily Enoxaparin Sodium 100 MG/ML solution prefilled syringe INJECT 90 MG SUBCUTANEOUSLY TWICE A DAY DIRECTED 10/25/2024 Active Start: 08-03-2023 End: 06-08-2024 Enoxaparin (Lovenox) 100 mg/ mL Syringe Discontinued 90 MG SUBCUT Daily August 03, 2023 12:00am June 08, 2024 2:29pm ergocalciferol 1.25 mg oral capsule (14 sources) Provitamin D2 Compound Start: 04-02-2025 take 1 capsule by mouth every week Ergocalciferol (Vitamin D2) 1,250 mcg (50,000 unit) capsule Active 0 .ROUTE .COMPLEX April 02, 2025 9:33am TAKE 1 CAPSULE BY MOUTH ONCE EVERY WEEK Complies with drug therapy Start: 09-07-2024 End: 04-02-2025 take 1 capsule by mouth every week Ergocalciferol (Vitamin D2) 1,250 mcg (50,000 unit) capsule Discontinued 1250 MCG PO every week September 07, 2024 12:00am April 02, 2025 9:33am ferrous sulfate 325 mg oral tablet (15 sources) Start: 02-27-2025 Ferrous Sulfat e 325 mg (65 mg iron) tablet Active 0 .ROUTE .COMPLEX February 27, 2025 8:41am TAKE 1 TABLET BY MOUTH EVERY 48 HOURS Complies with drug therapy Start: 09-07-2024 take 1 tablet by aris th every other day ferrous sulfate 325 (65 Fe) MG tablet Take 1 tablet by mouth every other day 09/07/2024 Active Start: 09-07-2024 End: 02-27-2025 Ferrous Sulfate 325 mg (65 m g iron) tablet Discontinued 325 MG PO Every 48 hours September 07, 2024 12:00am February 27, 2025 8:42am furosemide 20 mg oral tablet (2 sources) Loop Diuretic Start: 02-22-2025 take 1 tablet by mouth once daily Furosemide (Lasix) 20 mg tablet Active 20 MG PO Daily February 22, 2025 12:00am Complies with drug therapy levETIRAcetam 750 mg oral tablet (20 sources) Start: 02-08-2024 take 1 tablet by mouth every twelve hours Levetiracetam 750 mg tablet Active 750 MG PO Every 12 hours February 08, 2024 12:00am Complies with drug therapy Start: 01-06-2021 End: 01-04-2026 take 1 tablet by mouth twice daily Levetiracetam 750 mg tablet Discontinued 750 MG PO Twice daily January 06, 2021 1:00am February 08, 2024 11:22am levETIRAcetam (K eppra) 1000 MG tablet every 12 (twelve) hours Active take 1 tablet by aris every twelve hours levETIRAcetam 750 MG 1 tablet Orally every 12 hrs Active Comment on above: Take 1 tablet by aris twice daily. Take 1 tablet by aris two times a day. take 1 tablet by aris twice a day omeprazole 40 mg oral tablet (20 sources) Proton Pump Inhibitor Start: 10-25-2024 take 40 mg by mouth once daily Prilosec 40 mg, Oral, Daily, Refills(s) 0, Control of stomach acid Start Date: 10/25/24 Status: Ordered Start: 01-06-2021 End: 07-20-2023 take 1 capsule by mouth twice daily Omeprazole 40 mg capsule,delayed release(DR/EC) Discontinued 40 MG PO Twice daily 60 January 06, 2021 1:00am July 20, 2023 11:46am Start: 01-27-2011 End: 08-29-2024 take 1 capsule by mouth once daily Omeprazole 40 mg capsule,delayed release(DR/EC) Discontinued 40 MG PO Daily January 06, 2021 1:00am January 06, 2021 11:13am Comment on above: Take 1 capsule by mo [facility] once daily. ondansetron 4 mg disintegrating oral tablet (20 sources) Serotonin-3 Receptor Antagonist Start: End: take 1 tablet by mouth every six hours as needed for nausea Ondansetron 4 mg tablet,disintegrati ng Active 0 .ROUTE .COMPLEX June 08, 2025 1:13pm DISSOLVE 1 TABLET IN MOUTH EVERY 6 HOURS NEEDED FOR NAUSEA Complies with drug therapy Start: 11-25-2020 End: 06-06-2024 take 1 tablet by mouth every eight hours as needed for nausea Ondansetron 4 mg tablet,disintegrating Discontinued 4 MG PO Q8H as needed for Nausea January 06, 2021 1:00am June 06, 2024 8:49am Start: 11-25-2020 ondansetron or ally disintegrating (ZOFRAN ODT) 4 mg disintegrating tablet 11/25/2020 Active ondansetron (Zof ran) 4 MG tablet Take by mouth Active Ondansetron HCl 4 MG 1 tablet on the tongue and allow to dissolve Orally PRN PRN Active 24 hr venlafaxine 150 mg extended release oral capsule (20 sources) Serotonin and Norepinephrine Reuptake Inhibitor Start: 02-22-2025 take 1 capsule by mouth once daily Venlafaxine 150 mg capsule,extended release 24hr Active 150 MG PO Daily February 22, 2025 10:43am Complies with drug therapy Start: 10-25-2024 take 150 mg by mouth once pat y venlafaxine 150 mg, Oral, Daily, Refills(s) 0, Depression Start Date: 10/25/24 Status: Ordered Start: 08-20-2024 End: 02-22-2025 take 1 capsule by mouth once daily Venlafaxine 150 mg capsule,extended release 24hr Discontinued 0 .ROUTE .COMPLEX February 13, 2025 7:42am February 22, 2025 10:43am TAKE 1 CAPSULE BY MOUTH EVERY DAY Start: 08-20-2024 take 1 capsule by [facility] once daily Venlafaxine Active 0 .ROUTE .COMPLEX August 20, 2024 7:38pm TAKE 1 CAPSULE BY MOUTH EVERY DAY Start: 02-23-2024 venlafaxine XR (Effexor XR) 150 MG 24 hr capsule .COMPLEX 02/23/2024 Active Start: 02-23-2024 End: 02-22-2025 take 1 capsule by mouth once daily Venlafaxine 150 mg capsule,extended release 24hr Discontinued 0 .ROUTE .COMPLEX February 13, 2025 7:42am February 22, 2025 10:43am TAKE 1 CAPSULE BY MOUTH EVERY DAY Start: 02-08-2024 End: 06-08-2024 take 1 tablet by mouth once daily Venlafaxine 75 mg tablet Discontinued 75 MG PO Daily February 08, 2024 12:00am June 08, 2024 2:30pm Start: 07-20-2023 End: 02-23-2024 take 1 capsule by mouth once daily Venlafaxine 150 mg capsule,extended release 24hr Discontinued 150 MG PO Daily February 08, 2024 12:00am February 23, 2024 1:31pm Start: 01-06-2021 End: 09-08-2023 take 1 capsule by mouth once daily Venlafaxine 75 mg capsule,extended release 24hr Discontinued 75 MG PO Daily January 06, 2021 1:00am July 20, 2023 11:47am take 1 tablet by aris every twenty-four hours Venlafaxine HCl 75 MG 1 tablet with food Orally Once a day Not-Taking/PRN Comment on above: Take 1 capsule by mo [facility] once daily. Vitamin D (1 source) Start: 10-25-2024 Vitamin D 50,000 International_Unit, Oral, qWeek, Refills(s) 0, Prophylaxis Start Date: 10/25/24 Status: Ordered warfarin sodium 4 mg oral tablet (20 sources) Vitamin K Antagonist Start: 11-17-2024 take 1 tablet by mouth once daily Warfarin 4 mg tablet Active 0 .ROUTE .COMPLEX 90 November 17, 2024 2:07pm TAKE 1 TABLET BY MOUTH EVERY DAY DIRECTED BY [facility] 90 Complies with drug therapy Start: 11-02-2024 warfarin 4 mg Tab 2 mg = 0.5 tab[facility] Start Date: 11/02/24 Status: Ordered Start: 07-20-2023 End: 02-08-2024 take 1 tablet by mouth once Warfarin 2 mg Tablet Disco ntinued 2 MG PO every Wednesday, Wednesday, Wednesday, and Thursday July 20, 2023 12:00am February 08, 2024 11:26am Start: 10-03-2015 End: 11-17-2024 take 1 tablet by mouth once Warfarin 4 mg tablet Disco ntinued 4 MG PO every Wednesday, and Wednesday January 06, 2021 1:00am November 17, 2024 2:07pm Comment on above: Take 1 tablet by aris once daily. zonisamide 100 mg oral capsule (20 sources) Anti-epileptic Agent Start: 10-25-2024 take 300 mg by mouth once daily at bedtime Zonegran 300 mg, Oral, Once a day (at bedtime), Refills(s) 0, Seizure Start Date: 10/25/24 Status: Ordered Start: 02-09-2024 take 300 mg by mouth once pat y Zonisamide Active 300 MG PO Daily February 09, 2024 3:12pm Start: 12-23-2023 End: 06-09-2025 take 3 capsules by mouth once daily at bedtime zonisamide (ZONEGRAN) 100 mg capsule Indications: Localization-related (focal) (partial) symptomatic epilepsy and epileptic syndromes with complex partial seizures, intractable, without status epilepticus (HCC) Take 3 capsules by mouth daily at bedtime. 270 capsule 1 12/11/2024 06/09/2025 Active Start: 09-19-2021 End: 12-23-2023 take 2 capsules by mouth once daily at bedtime zonisamide (ZONEGRAN) 100 mg capsule Indications: Partial epilepsy with impairment of consciousness, intractable (HCC) Take 2 capsules by mouth daily at bedtime. 180 capsule 3 09/10/2022 12/23/2023 Discontinued Start: 01-06-2021 End: 02-09-2024 take 1 capsule by mouth once daily Zonisamide 100 mg capsule Active 200 MG PO Daily February 09, 2024 3:12pm Complies with drug therapy Start: 01-06-2021 End: 02-09-2024 take 200 mg by mouth once daily Zonisamide Discontinue d 200 MG PO Daily January 06, 2021 1:00am February 09, 2024 3:12pm Comment on above: Take 2 capsules by m outh daily at bedtime. Take 3 capsules by m outh daily at bedtime. Completed/Discontinued Medications Medication Drug Class(es) Dates Sig (Normalized) Sig (Original) acetaminophen 325 mg / HYDROcodone bitartrate 5 mg oral tablet (20 sources) Opioid Agonist Start: 02-08-2024 End: 03-29-2024 take 1 tablet by mouth every eight hours as needed Hydrocodone-Acetami nophen 5-325 mg tablet Discontinued 1 TAB PO Every 8 hours as needed February 08, 2024 12:00am March 29, 2024 2:00pm Start: 08-05-2023 End: 02-08-2024 take 1 tablet by mouth every six hours as needed for pain Hydrocodone-Acetaminophen 5-325 mg Table t Discontinued 1 TAB PO Q6H as needed for Pain Scale 1 - 5 56 14 August 05, 2023 February 08, [...] time a week. onabotulinumtoxina 100 unt injection (8 sources) Acetylcholine Release Inhibitor Start: 04-10-2025 End: 04-10-2025 inject 1 dose by intramuscular injection every 30 days 200 Units, INTRAMUSCULAR, ONCE (UP TO 30 DAYS AMB), 1 dose, On Wed04/10/25 at 1230, This record documents the total dose provided to patient. See progress note for specific locations and amounts administered. REFRIGERATE - Pharmaceutical Waste: Lab Pack - Start: 04-10-2025 End: 04-10-2025 onabotulinum toxin type A 20 0 Units injection (BOTOX) Start: 01-05-2025 End: 01-05-2025 onabotulinum toxin type A 15 5 Units injection (BOTOX) Start: 01-05-2025 End: 01-05-2025 155 Units, OTHER, ONCE (UP T O 30 DAYS AMB), 1 dose, On Wed01/05/25 at 1200, This record documents the total dose provided to patient. See progress note for specific locations and amounts administered. REFRIGERATE - Pharmaceutical Waste: Lab Pack - Start: 09-05-2024 End: 09-05-2024 inject 1 dose by intramuscular injection every 30 days 200 Units, INTRAMUSCULAR, ONCE (UP TO 30 DAYS AMB), 1 dose, On Wed09/05/24 at 1400, This record documents the total dose provided to patient. See progress note for specific locations and amounts administered. REFRIGERATE - Pharmaceutical Waste: Lab Pack - Start: 09-05-2024 End: 09-05-2024 onabotulinum toxin type A 20 0 Units injection (BOTOX) Start: 05-23-2024 End: 05-23-2024 onabotulinum toxin type A 20 0 Units injection (BOTOX) Start: 05-23-2024 End: 05-23-2024 onabotulinum toxin type A 20 0 Units injection (BOTOX) cephalexin 500 mg oral capsule (13 sources) Cephalosporin Antibacterial Start: 11-17-2024 End: 11-24-2024 take 1 capsule by mouth three times daily Cephalexin 500 mg capsule Discontinued 500 MG PO Three times daily 04 06November 17, 2024 1:00am November 24, 2024 2:56pm Start: 08-12-2023 take 1 capsule by [facility] twice daily Keflex 500 MG 1 capsule Orally bid for 7 days Jul, Active cyclobenzaprine hydrochloride 5 mg oral tablet (20 sources) Muscle Relaxant Start: 06-27-2024 End: 10-27-2024 take 1 tablet by mouth twice daily as needed Cyclobenzaprine 5 mg tablet Discontinued 5 MG PO Twice daily as needed August 29, 2024 10:52am October 27, 2024 9:59am doxycycline monohydrate 100 mg oral capsule (13 sources) Tetracycline-c lass Drug Start: 02-21-2025 End: 07-02-2025 take 1 capsule by mouth twice daily Doxycycline Monohydrate 100 mg capsule Discontinued 100 MG PO Twice daily 03 09February 21, 2025 12:00am July 02, 2025 2:58pm Start: 11-21-2024 End: 02-21-2025 take 1 capsule by mouth twice daily Doxycycline Hyclate 100 mg capsule Discontinued 100 MG PO Twice daily 03 09November 21, 2024 1:00am February 21, 2025 2:07pm hydrALAZINE hydrochloride 50 mg oral tablet (20 sources) Arteriolar Vasodilator Start: 01-06-2021 End: 07-20-2023 Hydralazine 50 mg tablet Discontinued 50 MG PO As Directed January 06, 2021 1:00am July 20, 2023 11:41am linaclotide 0.072 mg oral capsule (20 sources) Guanylate Cyclase-C Agonist Start: 02-08-2024 End: 02-22-2025 take 1 capsule by mouth once daily as needed Linaclotide 72 mcg capsule Discontinued 72 MCG PO Daily as needed September 07, 2024 9:21am October 27, 2024 10:00am Start: 01-07-2023 Linzess 72 MCG 1 capsule [...] Angiotensin 2 Receptor Dylan Start: 07-20-2023 End: 11-12-2024 take 1 tablet by mouth once daily in the morning Losartan 25 mg tablet Discontinued 25 MG PO Every morning 90 90 November 08, 2024 6:58pm November 12, 2024 3:47pm melatonin 5 mg oral tablet (20 sources) Start: 01-06-2021 End: 07-20-2023 take 1 tablet by mouth at bedtime as needed Melatonin 5 mg Tablet Discontinued 5 MG PO Bedtime as needed for Insomnia January 06, 2021 1:00am July 20, 2023 11:48am mupirocin 0.02 mg/mg topical ointment (20 sources) RNA Synthetase Inhibitor Antibacterial Start: 02-08-2024 End: 06-08-2024 Mupirocin 2 % ointment Discontinued 1 APPLIC TOPICAL Twice daily February 08, 2024 12:00am June 08, 2024 2:30pm Mupirocin 2 % 1 application Externally Twice a day Not-Taking/PRN naproxen sodium 220 mg oral tablet (20 sources) Nonsteroidal Anti-inflammatory Drug Start: 01-06-2021 End: 07-20-2023 take 1 tablet by mouth twice daily as needed for pain Naproxen Sodium (Aleve) 220 mg Tablet Discontinued 220 MG PO Twice daily as needed for Pain January 06, 2021 1:00am July 20, 2023 11:48am End: 09-10-2022 naproxen sodium (ALEVE ORAL) Take by mouth as needed. 0 09/10/2022 Discontinued (Discontinued by another Health Care Provider) naproxen sodium (ALEVE ORAL) Take by mouth as needed. 0 Active Comment on above: Take by mouth as nee ded. tiZANidine 4 mg oral tablet (20 sources) Central alpha-2 Adrenergic Agonist Start: 3 End: 4 take 1 tablet by mouth twice daily as needed for muscle spasms Tizanidine 4 mg Tablet Discontinued 4 MG PO Twice daily as needed for Muscle Spasm August 05, 2023 12:00am February 08, 2024 11:24am traMADol hydrochloride 50 mg oral tablet (20 sources) Opioid Agonist Start: 4 End: 4 take 1 tablet by mouth twice daily as needed for pain Tramadol 50 mg tablet Discontinued 50 MG PO Twice daily as needed for pain 30 April 13, 2024 3:16pm October 27, 2024 10:00am Start: 10-14-2020 End: 07-20-2023 take 1 tablet by mouth once daily Tramadol 50 mg tablet Discontinued 50 MG PO Daily January 06, 2021 1:00am July 20, 2023 11:48am Problems Active Problems Problem Classification Problem Date Documented Date Episodic/Chronic Abdominal pain (20 sources) Abdominal pain; Translations: [Unspecified abdominal pain] Onset: 4 02-08-2024 Episodic Acute bronchitis (8 sources) Acute bronchitis; Translations: [Acute bronchitis due to other specified organisms] Episodic Anxiety disorders (20 sources) Anxiety; Translations: [Anxiety disorder, unspecified] Onset: 8 06-21-2018 Chronic Asthma (20 sources) Asthma without status asthmaticus; Translations: [Asthma, unspecified, unspecified status] Onset: 4 02-08-2024 Chronic Biliary tract disease (1 source) Disorder of gallbladder; Translations: [Disease of gallbladder, unspecified] 02-08-2024 Episodic Cancer of other GI organs; peritoneum (20 sources) Carcinoma of ampulla of Vater; Translations: [...] of pancreas, unspecified] Onset: 1 05-14-2015 Chronic Comment on above: surgery, chemo, radi ation Cardiac dysrhythmias (20 sources) Sinus node dysfunction; Translations: [Sick sinus syndrome] Onset: 5 07-11-2015 Chronic Chronic kidney disease (20 sources) Chronic kidney disease stage 3B ; Translations: [Stage 3b chronic kidney disease] Onset: 2 02-14-2024 Chronic Complications of surgical procedures or medical care (16 sources) Postoperative wound infection; Translations: [Infection following a procedure, other surgical site, initial encounter] 11-17-2024 Episodic Conditions associated with dizziness or vertigo (20 sources) Benign paroxysmal positional vertigo; Translations: [Benign paroxysmal vertigo, left ear] Resolved: 2 Episodic Conduction disorders (20 sources) Cardiac pacemaker in situ; Translations: [Presence of cardiac pacemaker] Onset: 5 11-10-2021 Chronic Diseases of white blood cells (20 sources) Leukopenia; Translations: [Decreased white blood cell count, unspecified] 06-08-2024 Chronic E Codes: Adverse effects of medical drugs (20 sources) Adverse reaction to drug; Translations: [Adverse effect of anticoagulant antagonists, vitamin K and other coagulants, initial encounter] 11-17-2024 Episodic Epilepsy; convulsions (20 sources) Partial epilepsy with [...] disorder; Translations: [Depression] Onset: 5 08-19-2015 Chronic Nausea and vomiting (20 sources) Nausea; Translations: [Nausea] Onset: 8 Resolved: 2 Episodic Nonspecific chest pain (20 sources) Tight chest; Translations: [Other chest pain] 02-08-2024 Episodic Nutritional deficiencies (20 sources) Vitamin D deficiency; Translations: [Vitamin D deficiency, unspecified] 02-08-2024 Chronic Osteoarthritis (20 sources) Arthritis; Translations: [Unspecified osteoarthritis, unspecified site] 02-08-2024 Chronic Osteoporosis (20 sources) Osteoporosis; Translations: [Age-related osteoporosis without current pathological fracture] Chronic Other aftercare (16 sources) H/O: high risk medication; Translations: [Other mixer tender (current) drug therapy] Episodic Other aftercare (20 sources) Long-term current use of anticoagulant; Translations: [MCC (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 of anticoagulants] Onset: 4 02-08-2024 Episodic Other aftercare (5 sources) Encounter for therapeutic drug level monitoring; [facility] Onset: 3 Episodic Other aftercare (1 source) MCC (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 of anticoagulants; Translations: [SERVICE ARCHITECT CURRNT USE ANTICOAGULANTS] Onset: 3 Episodic Other aftercare (8 sources) Long-term current use of drug therapy; Translations: [Other alf (current) drug therapy] Episodic Other aftercare (1 source) Drug therapy finding; Translations: [Other mixer tender (current) drug therapy] 02-08-2024 Episodic Other and ill-defined heart disease (1 source) Heart disease; Translations: [Heart disease, unspecified] 02-08-2024 Chronic Other and unspecified benign neoplasm (17 sources) History of polyp of colon; Translations: [Personal history of colonic polyps] Episodic Other bone disease and musculoskeletal deformities (8 sources) Disorder of bone; Translations: [Disorder of bone, unspecified] Episodic Other circulatory disease (20 sources) Inferior vena cava filter in situ; [...] as traumatic] Episodic Other connective tissue disease (16 sources) Trochanteric bursitis; Translations: [Trochanteric bursitis, right hip] 04-21-2024 Episodic Other connective tissue disease (4 sources) Trochanteric bursitis, right hip; Translations: [Enthesopathy of hip region] 04-21-2024 Episodic Other connective tissue disease (10 sources) Swelling of right lower limb; Translations: [Other specified soft tissue disorders] 08-30-2024 Episodic Other connective tissue disease (5 sources) Other specified soft tissue disorders; Translations: [Swelling of limb] 08-30-2024 Episodic Other diseases of kidney and ureters (15 sources) Secondary hyperparathyroidism; Translations: [Secondary hyperparathyroidism of renal origin] 06-08-2024 Chronic Other diseases of kidney and ureters (12 sources) Secondary hyperparathyroidism of renal origin; Translations: [...] syndrome with constipation Chronic Other gastrointestinal disorders (20 sources) Constipation; Translations: [Constipation, unspecified] 08-29-2024 Episodic Other gastrointestinal disorders (16 sources) Other specified diseases of intestine; Translations: [Small intestinal bacterial overgrowth (SIBO)] Episodic Other gastrointestinal disorders (17 sources) Alteration in bowel elimination; Translations: [Change in bowel habit] Episodic Other gastrointestinal disorders (10 sources) Constipation, unspecified; Translations: [Constipation, unspecified] Episodic Other gastrointestinal disorders (1 source) Small bowel bacterial overgrowth syndrome; Translations: [Other specified diseases of intestine] Episodic Other gastrointestinal disorders (1 source) Altered bowel function; Translations: [Change in bowel habit] 02-08-2024 Episodic Other hereditary and degenerative nervous system conditions (3 sources) Impaired cognition; Translations: [Mild cognitive impairment, so stated] Onset: 5 01-23-2025 Chronic Other hereditary and degenerative nervous system conditions (1 source) Mild cognitive impairment, so stated; Translations: [MCI (mild cognitive impairment)] Onset: 5 Chronic Other injuries and conditions due to external causes (8 sources) History of fall; Translations: [History of falling] Episodic Other nervous system disorders (1 source) Chronic pain syndrome; Translations: [Chronic pain syndrome] Onset: 5 Chronic Other nervous system disorders (2 sources) Chronic pain syndrome; Translations: [Chronic pain syndrome] 05-23-2025 Chronic Other nervous system disorders (9 sources) Impaired cognition; Translations: [Other symptoms and signs involving cognitive functions and awareness] Resolved: 2 01-30-2025 Episodic Other nervous system disorders (18 sources) Postoperative pain ; Translations: [Other acute postprocedural pain] 03-03-2024 Episodic Other nutritional; endocrine; and metabolic disorders (20 sources) Obesity; Translations: [Obesity, unspecified] Chronic Other nutritional; endocrine; and metabolic disorders (2 sources) Obese class II; Translations: [Obesity, Class II, BMI 35-39.9] Onset: 5 05-21-2025 Chronic Other screening for suspected conditions (not mental disorders or infectious disease) (11 sources) Encounter for screening mammogram for malignant neoplasm of breast; Translations: [Other screening mammogram] Onset: 2 Episodic Other upper respiratory infections (17 sources) Acute maxillary sinusitis; Translations: [Acute maxillary sinusitis, unspecified] Episodic Phlebitis; thrombophlebitis and thromboembolism (20 sources) Deep venous thrombosis of right lower extremity; Translations: [Acute embolism and thrombosis of unspecified deep veins of right lower extremity] Onset: 3 05-14-2015 Episodic Residual codes; unclassified (20 sources) Insomnia; Translations: [Other insomnia] Onset: 8 [...] [Localized edema] 02-08-2024 Episodic Residual codes; unclassified (16 sources) History of operative procedure on lumbar spinal structure; Translations: [Other specified postprocedural states] 04-21-2024 Episodic Residual codes; unclassified (4 sources) Other specified postprocedural states; Translations: [Personal history of surgery to other organs] 04-21-2024 Episodic Residual codes; unclassified (1 source) Amnesia; Translations: [Other amnesia] 01-04-2025 Episodic Residual codes; unclassified (3 sources) Bilateral lower limb edema; Translations: [Localized edema] 02-21-2025 Episodic Residual codes; unclassified (3 sources) Localized edema; Translations: [Edema] 02-21-2025 Episodic Retinal detachments; defects; vascular occlusion; and retinopathy (16 sources) Retinal hemorrhage; 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, bilateral] Chronic Skin and subcutaneous tissue infections (20 sources) Abscess of abdominal wall; Translations: [Cutaneous abscess of abdominal wall] 11-24-2024 Episodic Spondylosis; intervertebral disc disorders; other back problems (20 sources) Cervical spondylosis; Translations: [Spondylosis without myelopathy or radiculopathy, cervical region] Onset: 4 Chronic Spondylosis; intervertebral disc disorders; other back problems (20 sources) Thoracic and lumbosacral neuritis; Translations: [Thoracic or lumbosacral neuritis or radiculitis, unspecified] Onset: 4 Resolved: 1 Episodic Superficial injury; contusion (20 sources) Intra-abdominal hematoma; Translations: [Contusion of abdominal wall, initial encounter] Onset: 5 11-24-2024 Episodic Thyroid disorders (20 sources) Thyroid nodule; Translations: [Nontoxic single thyroid nodule] Chronic Unclassified (3 sources) LOW BACK PAIN, UNSPECIFIED; Translations: [LOW BACK PAIN, UNSPECIFIED] Onset: 3 Unclassified (8 sources) Exposure to acute respiratory syndrome coronavirus 2; Translations: [Contact with and (suspected) exposure to COVID-19] Unclassified (1 source) Low back pain, unspecified; Translations: [Low back pain, unspecified] Onset: 4 Unclassified (1 source) Established Patient Onset: 4 Unclassified (1 source) Obesity, Class II, BMI 35-39.9; Translations: [Obesity, Class II, BMI 35-39.9] Onset: 5 Viral infection (4 sources) COVID-19; Translations: [COVID-19] Onset: 2 Past or Other Problems Problem Classification Problem Date Documented Da te Episodic/Chronic Blindness and vision defects (20 sources) Homonymous hemianopia; Translations: [Homonymous bilateral field defects, unspecified side] Onset: 10-08-2015 10-08-2015 Episodic Cardiac dysrhythmias (20 sources) Bradycardia; Translations: [Bradycardia, unspecified] Onset: 05-14-2015 05-14-2015 Episodic Chronic kidney disease (4 sources) Chronic kidney disease; Translations: [CHRONIC KIDNEY DISEASE STAGE 3A] Onset: 08-12-2022 Complication of device; implant or graft (20 sources) Complication of intravascular line; Translations: [Unspecified complication of cardiac and vascular prosthetic device, implant and graft, initial encounter] Onset: 03-29-2014 03-29-2014 Episodic Deficiency and other anemia (9 sources) Anemia; Translations: [Anemia, unspecified] Onset: 04-13-2019 02-08-2024 Episodic Epilepsy; convulsions (20 sources) Seizure; Translations: [Other convulsions] Onset: 01-24-2015 Resolved: 06-21-2018 06-21-2018 Episodic Malaise and fatigue (20 sources) Fatigue; Translations: [Other fatigue] Onset: 03-13-2019 03-13-2019 Episodic Neoplasms of unspecified nature or uncertain behavior (8 sources) 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; Translations: [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] Resolved: 07-30-2021 Episodic Other aftercare (20 sources) Anticoagulant effect; Translations: [MCC (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 of anticoagulants] Onset: 05-14-2015 05-14-2015 Episodic Other aftercare (1 source) Other mixer tender (current) drug therapy; Translations: [OTH SERVICE ARCHITECT CURRENT DRUG THERAPY] Onset: 08-04-2022 Episodic Other [...] Resolved: 03-03-2022 Episodic Other connective tissue disease (20 sources) Pain in limb; Translations: [Pain in unspecified limb] Onset: 03-13-2019 03-13-2019 Episodic Other connective tissue disease (20 sources) Pain in left arm; Translations: [Pain [...] unspecified] Onset: 03-28-2024 Episodic Other eye disorders (20 sources) Hypertropia of right eye; 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, right eye] Onset: 10-08-2015 10-08-2015 Episodic Other liver diseases (20 sources) Alkaline phosphatase raised; Translations: [Abnormal levels of other serum enzymes] Onset: 05-14-2015 05-14-2015 Episodic Other nervous system disorders (20 sources) Paresthesia; Translations: [Paresthesia of skin] Onset: 01-05-2019 02-08-2024 Episodic Other nervous system disorders (1 source) Other acute postprocedural pain; Translations: [Other acute postprocedural pain] Onset: 03-28-2024 Episodic Other non-traumatic joint disorders (8 sources) Shoulder joint pain; Translations: [Pain in left shoulder] Resolved: 07-24-2020 Episodic Other nutritional; endocrine; and metabolic disorders (20 sources) Abnormal weight loss; Translations: [Abnormal weight loss] Onset: 08-07-2016 08-07-2016 Episodic Other upper respiratory disease (8 sources) Bleeding from nose; Translations: [Epistaxis] Resolved: 07-30-2021 Episodic Residual codes; unclassified (20 sources) Family history of malignant neoplasm of [...] MALIG NEOPLASM OTH ORGN/SYS] Onset: 07-31-2022 Episodic Residual codes; unclassified (1 source) Other amnesia; Translations: [Memory loss] Onset: 01-04-2025 Episodic Sprains and strains (8 sources) Neck sprain; Translations: [Strain of muscle, fascia and tendon at neck level, initial encounter] Resolved: 07-24-2020 Episodic Unclassified (1 source) LOW BACK PAIN, UNSPECIFIED; Translations: [LOW BACK PAIN, UNSPECIFIED] Onset: 03-29-2023 Unclassified (8 sources) Gynecological examination normal; Translations: [Routine gynecological examination] Onset: 02-22-2008 Results Test Name Value Interpretation Reference Range Facility [facility] 05-21-2025 CNOV Office Visit ([facility] ) -- CASSI RODRIGEZ ([id number]) 1950 F Date Time Provider Department 05/21/25 8:00 AM ELIAN JONES During your visit today, we recorded the following information about you: Blood pressure Weight 123/60 87.3 kg Elian Jones DO 05/23/2025 2:36 PM Signed [facility] New Patient Evaluation Cassi Rodrigez : 1950 05/21/2025 8:00 AM Chief Complaint: memory concern I had the pleasure of seeing this 75 year old year old female at the [facility]. The patient is referred by Dr. Alejandro Villar Patient is accompanied by and information obtained from Spouse and the patient, and available records in the system. Background and History of Present Illness: Summary of Chart Review; This is a 75-year-old female with a past medical history of; 1.) Pancreatic cancer, complicated by deep vein thrombosis (DVT), currently on chronic anticoagulation with warfarin. 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 She has remained seizure-free with occasional auras since surgery. She has continued antiepileptic medications including levetiracetam and zonisamide. 3.) Chronic daily pain related to degenerative spine disease, s/p right L4-L5 foraminotomy, chronic cervicalgia with multiple cervical spine surgeries, and chronic migraine with aura, requiring Botox injections and prolonged use of amitriptyline 25-50 mg daily. Previous, discontinued pain medications include Fioricet, Cymbalta, Topamax, and Depakote. In August 2011, she experienced an episode of difficulty speaking, prompting a CT scan of the brain that showed mild cerebral atrophy, considered age-appropriate. In 2014, a pre-surgical MRI brain epilepsy protocol revealed bilateral hippocampal volume loss appropriate for her age. She underwent several CT brain scans between 2014 and 2015, with ho findings including postoperative changes from right temporal craniotomy and lobectomy, no acute infarct, evidence of a prior lacunar infarct, bilateral ICAs calcifications, and mild generalized parenchymal atrophy. She was last seen in the [facility] in December 2024, where she endorsed some difficulty with memory. In January 2025, she was administered the home, online-version of the Brief Assessment of Cognition in Humans (BACH), which suggested probable cognitive impairment (Probability 74.95%). She was advised to follow up at [facility] for further evaluation of her memory concerns. Today's visit; Ms. Rodrigez has been experiencing memory difficulties over the past 6 months. She reports forgetting the names of unfamiliar places; with cues or assistance, she is sometimes able to retrieve those names. She denies getting lost or having difficulty with spatial orientation. She also reports occasional difficulty finding words or completing sentences, although she can typically self-correct and eventually produce the correct word. There is no evidence of agrammatism or significant anomia. These symptoms have remained stable and non-progressive, though she is becoming more aware of them. She continues to experience daily pain from a chronic back condition, which affects both her mood and cognition. She has been taking amitriptyline for pain management. However, per the patient's report, she is unsure whether the medication has made a noticeable effect. Her migraines remain frequent. Per records, she has never tried an anti-CGRP injection. Functionally, her physical activity is limited, and she has been advised to avoid certain forms of exercise due to her spinal condition. She previously attended physical therapy but has since discontinued it. Review of multidomain cognitive functions Domain Abnormality ? Detail Memory Yes Impaired short-term/working memory and Forgetting recent events Language No Visuospatial No Primary higher cortical visual No Attention No Execution No Praxis No Mood Yes Depressed mood, feeling down, strongly associated with pain Psychotic symptoms No Sleep and Night time behavior No She sleep well, no insomnia, no history suggesting RBD. Sleep duration about 8 hr. Not feeling refreshed but she anticipates that from medications she takes. Somatic and Mobility Yes Gait disturbance form chornic spine condition and pain during her mobility. Although no fall or central balance symptoms, no vertigo/dizziness, limited mobility mainly from spine conditions. Review of System Components Abnormality ? / Detail Weight / Appetite change No Hearing No Vision No Bowel (Constipation, Diarrhea) Yes: IBS, constipation, no medication used due to CKD concern Bladder (Frequency, Urgency, Incontinence) No Chest symptoms (Angina, Dyspnea, Chest Discomfort) No Falls, Injuries, Ac (more content not included)... [facility]OVon 04-10-2025 CNOV Office Visit ([facility] ) -- CASSI RODRIGEZ ([id number]) 1950 F Date Time Provider Department 04/10/25 11:30 AM RANDA REILLY [facility] During your visit today, we recorded the following information about you: Pulse Blood pressure Weight Height 86/minute 109/72 85.6 kg 1.575 m Randa Reilly MD 04/10/2025 12:19 PM Signed PROGRESS NOTE- [facility] SERV[facility] DATE: April 10, 2025 Location: [facility] Participants: patient, and provider HPI: Here for follow up and Botox therapy. Migraine Characteristics: see note from September 05, 2024 Current Outpatient Medications Medication Sig levETIRAcetam (KEPPRA) 750 mg tablet Take 1 tablet by mouth two times a day. zonisamide (ZONEGRAN) 100 mg capsule Take 3 capsules by mouth daily at bedtime. amLODIPine (NORVASC) 5 mg tablet Take 5 [...] No current facility-administered medications for this visit. Current medication review: Coumadin 4 mg, chronic 2. Amitriptyline 25 mg- for IBS pain, helps, for over 1 year 3. Botox PRIOR TO TREATMENT Total migraine days per month: daily Severity: mild, moderate, severe Start date: May/2024 AFTER TREATMENT Total migraine days per month/Severity: 28 mild, 2 moderate to severe PAST MEDICAL HISTORY Diagnosis Date Asthma, chronic (HCC) Back pain Depression DJD (degenerative joint disease) HTN (hypertension) IBS (irritable bowel syndrome) SHELL (obstructive sleep apnea) Reflux Right leg DVT (HCC) 03/09/2013 Seizure (HCC) Seizures (HCC) ALLERGIES Allergen Reactions Lyrica [Pregabalin] Rash Dexamethasone Rash BP 109/72 (BP Position: Sitting) Pulse 86 Ht 157.5 cm (5' 2 ) Wt 85.6 kg (188 lb 11.4 oz) BMI 34.52 kg/m? ASSESSMENT: - 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 aura - chronic cervicalgia - CKD RECOMMENDATIONS: 1. Preventive therapy: -continue Botox. See attached procedure note 2. Follow up in 3 months for Botox with me or WENDY Randa Reilly MD [facility] [place] Lon Alexander RN 04/10/2025 12:19 PM Signed Patient name and confirmed. Patient states she would like to receive Botox treatment today. 2 vials of Botox A (100 units in each) reconstituted with 2.2 cc of normal saline in each vial. Botox drawn up into four, 1 cc syringes. Each syringe containing 50 units of Botox. Assisted by: Vania Farfan RN Botox, 2 vials: Lot # [id number] Exp 08/2027 Lot # [id number] Exp 08/[address] Reilly to administer and verified order. Randa Reilly MD 04/10/2025 12:19 PM Signed BOTOX PROCEDURE NOTE UNIVERSAL PROTOCOL / SAFETY CHECKLIST Procedure to be performed: Randa Reilly MD Sign in Communication: Completed Time Out: Team Confirms the Correct Patient, Correct Procedure, Correct Site and Site Marking, Correct Position (if applicable), Prep and Dry Time (if applicable). Time: Before procedure Affirmation of Time Out: YES Sign Out Discussion: Completed Randa Reilly MD Botox procedure note Treatment # 4 Consent in EPIC Dilution: 5 units/0.1 ml ( 100 unit vial with 2 cc diluent or 200 unit vial with 4 cc diluent) Diluent: normal saline Indication: Chronic Intractable Migraine Right temporal metal plate with skin irregularity, no shunt Injection Sites Muscle Fixed Site/Fixed Dose Bilat Flame Cutting Machine Operator Helper 20 U divided in 2 sites Procerus [...] Total Units wasted: 0 Randa Reilly MD [facility] Referring Provider: RANDA REILLY [[id number]] Allergies As of Date: 04/10/2025 Noted Allergy Reaction LYRICA (PREGABALIN) 08/24/2013 2 - Rash DEXAMETHASONE 10/03/2015 2 - Rash Date Reviewed: 04/10/2025 Reviewed by: Lou Bustamante MA - Fully Assessed Reason for Visit: Established Patient [175] Cmt: botox Chronic Migraine [3851] Primary Visit Diagnosis:Intractable 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 aura and without status migrainosus [G43.719] Order(s):[] onabotulinum toxin type A 200 Units injection (BOTOX)Disp: Rfl: Prescriptions as of 04/11/2025 - levETIRAcetam (KEPPRA) 750 mg tablet Take 1 tablet by mouth two times a day. - zonisamide (ZONEGRAN) 100 mg capsule Take 3 capsules by mouth daily at bedtime. - (more content not included)... Normal [facility] Erythrocyte distribution wid th Auto (RBC) [Ratio]on 02-12-2025 Erythrocyte distribution width (RBC) [Ratio] Erythrocyte distribution width [Ratio] by Automated count 11.0-15.0 [facility] Estimated glomerular filtrat ion rate (GFR) non- Americanon 02-12-2025 GFR/1.73 sq M.predicted among non-blacks MDRD (S/P/Bld) [Vol rate/Area] Estimated glomerular filtration rate (GFR) non- Low >=60 mL/min/1.7 3m 2 [facility] Hematocrit Auto (Bld) [Volum e fraction]on 02-12-2025 Hematocrit (Bld) [Volume fraction] Hematocrit [Volume Fraction] of Blood by Automated count 36.0-48.0 [facility] Hemoglobin [Mass/volume] in Bloodon 02-12-2025 Hemoglobin (Bld) [Mass/Vol] Hemoglobin [Mass/volume] in Blood 12.0-16.0 [facility] Iron binding capacity [Mass/ volume] in Serum or Plasmaon 02-12-2025 Iron binding capacity [Mass/Vol] Iron binding capacity [Mass/volume] in Serum or Plasma 250.0-450. 0 [facility] Iron saturation [Mass Fracti on] in Serum or Plasmaon 02-12-2025 Iron saturation [Mass fraction] Iron saturation [Mass Fraction] in Serum or Plasma [facility] Laboratory - Chemistry and C hemistry - challengeon 02-12-2025 Albumin [Mass/Vol] 3.3 g/dL Low 3.4-5.0 [facility] Calcium [Mass/Vol] 8.6 mg/dL 8.5-10.1 [facility] Chloride [Moles/Vol] 107 mmol/L 98-107 [facility] CO2 [Moles/Vol] 21.1 mmol/L 21.0-32.0 [facility] Creatinine [Mass/Vol] 1.94 mg/dL High 0.55-1.02 [facility] Ferritin [Mass/Vol] 62.0 ng/mL 8.0-252.0 [facility] GFR/1.73 sq M.predicted MDRD (S/P/Bld) [Vol rate/Area] 31 mL/min/{1.73_m2} Low >=60 mL/min/1.7 3m 2 [facility] Glucose [Mass/Vol] 117 mg/dL High 74-106 [facility] Iron [Mass/Vol] 75.0 ug/dL 50.0-170.0 [facility] Magnesium [Mass/Vol] 2.0 mg/dL 1.8-2.4 [facility] Potassium [Moles/Vol] 4.6 mmol/L 3.5-5.1 [facility] Sodium [Moles/Vol] 141 mmol/L 136-145 [facility] Urate [Mass/Vol] 5.0 mg/dL 2.6-6.0 [facility] Urea nitrogen [Mass/Vol] 27.0 mg/dL High 7.0-18.0 [facility] Urea nitrogen/Creatinine [Mass ratio] 13.9 mg/mg [facility] Laboratory - Urinalysison Protein (U) [Mass/Vol] 24.6 mg/dL High <=11.9 [facility] Leukocytes [#/volume] correc tanesha for nucleated erythrocytes in Blood by Automated counon 02-12-2025 WBC corrected for nucl RBC Auto (Bld) [#/Vol] Leukocytes [#/volume] corrected for nucleated erythrocytes in Blood by Automated coun 4.0-11.0 [facility] MCH Auto (RBC) [Entitic mass ]on 02-12-2025 MCH (RBC) [Entitic mass] MCH [Entitic mass] by Automated count 26.7-34.0 [facility] MCHC Auto (RBC) [Mass/Vol]on 02-12-2025 MCHC (RBC) [Mass/Vol] MCHC [Mass/volume] by Automated count 29.9-35.2 [facility] MCV Auto (RBC) [Entitic vol] on 02-12-2025 MCV (RBC) [Entitic vol] MCV [Entitic vol ume] by Automated count 81.0-99.0 [facility] No Panel Informationon 02-12 25-Hydroxy Vitamin D Total 36.0 ng/mL [facility] Comment on above: <20 ng/mL Vit D defi cient20-<30 ng/mL Vit D [id number] ng/mL Vit D sufficient>100 ng/mL Potential Toxicity Parathyroid Hormone (Intact) 141 pg/mL Abnormal 15-65 [facility] Comment on above: Performed at: [facility] [place] [id number] Director: Junaid Sawyer PhD, Phone: [phone] Phosphorus Level 3.5 mg/dL 2.6-4.7 [facility] Urine Random Creatinine 127.82 mg/dL 20.0 0-300. 00 [facility] Platelet mean volume Auto (B ld) [Entitic vol]on 02-12-2025 Platelet mean volume (Bld) [Entitic vol] Platelet mean volume [Entitic volume] in Blood by Automated count 9.5-13.5 [facility] Platelets Auto (Bld) [#/Vol] on 02-12-2025 Platelets (Bld) [#/Vol] Platelets [#/vol ume] in Blood by Automated count 150-450 [facility] RBC Auto (Bld) [#/Vol]on RBC (Bld) [#/Vol] Erythrocytes [#/volu me] in Blood by Automated count Low 4.20-5.40 [facility] Serum or plasma anion gap de terminationon 02-12-2025 Anion gap [Moles/Vol] Serum or plasma an ion gap determination [facility] Urine protein/creatinine rat ioon 02-12-2025 Protein/Creatinine (U) [Ratio] Urine protein/creatinine ratio [facility] CNOVon 01-05-2025 CNOV Office Visit (NEADFV ) -- CASSI RODRIGEZ ([id number]) 1950 F Date Time Provider Department 01/05/25 12:00 PM SVITLANA MAYFIELD During your visit today, we recorded the following information about you: Pulse Blood pressure Weight Height 86/minute 127/61 86.7 kg 1.575 m Svitlana Mayfield APRN.[facility] 01/05/2025 12:15 PM Signed Follow-Up Onabotulinum Toxin A (BotoxTM) for Migraine Indication: Chronic Intractable Migraine Referral Expiration: 11/14/2025 Prior to the initiation of the FIRST treatment with Onabotulinum Toxin A, the patient reported the following average headache frequency over the past 3 MONTHS: Number of moderate-severe migraine days/month: 30 (daily) Number of mild migraine days/month: 0 Number of headache free days/month: 0 (0 headache-free hours) Migraine severity: 8/10 After treatment with Onabotulinum Toxin A: Number of moderate-severe migraine days/month: 2 Number of mild migraine days/month: 28 Number of headache free days/month: 0 (0 headache-free hours) Migraine severity: 7/10 Patient reduction in overall migraine days: No Patient reduction in moderate-severe migraine days: Yes Patient reduction of headache hours by 100 hours or more: No Individual has obtained clinical benefit deemed significant by individual or prescriber (Y/N): Yes Patient's quality of life and ability to perform ADLs has improved (Y/N): Yes Side effects: none Wearing off: No The patient has been assessed for disorders which could contribute to breathing or swallowing difficulty, and there is no contraindication with PREEMPT Botox. There is no documented allergic reaction/hypersensitivity to any botulinum toxin and there is no active infection at proposed injection site. HEADACHE SCORES: 02/29/2024 Headache Questions ID Migraine Screener: 3 (Positive) Initial improvement of headache after botox injection at last visit: Minimally improved 12/22/2023 08/30/2024 12/28/2024 FANTA - 2/7 SCORES FANTA-2 Score 2 1 1 FANTA-7 Score 2 02/29/2024 Migraine Specific QOL - Higher scores indicate better HRQL Role Function-Restrictive Transformed Score (range: 0-100) 34.29 Role Function-Preventive Transformed Score (range: 0-100) 55 Emotional Function Transformed Score (range: 0-100) 46.67 12/28/2024 08/30/2024 12/22/2023 PHQ-9 Score 6 5 13 There were no vitals taken for this visit. Patient name: Cassi Rodrigez : 1950 ALLERGIES Allergen Reactions Lyrica [Pregabalin] Rash Dexamethasone Rash UNIVERSAL PROTOCOL / SAFETY CHECKLIST Procedure: Onabotulinum toxin A for migraine Informed Consent Consent Obtained: Written Jenner Protocol A moment to CARE was completed SIGN IN Personnel directly involved with the procedure wore the appropriate PPE Special Equipment: N/A Patient/Surrogate Stated/Verified: Patient name, Date of , Relevant allergies and Intended procedure TIME OUT Intended patient and procedure match the source document(s) Consent documented and matches the intended procedure No relevant labs, photos, and/or imaging studies were applicable for review. No correct side/site applicable for marking and visibility. No medications required for procedure. No fire risk assessment and interventions applicable. No implant(s) inserted. SIGN OUT No specimen collected. No instruments, equipment or retained foreign bodies applicable. 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 She says she would prefer to sit when having DOUGLASS. No changes with Valsalva maneuvers. Aura:no. Severity: 5/10 at baseline. With exacerbations of 10/10 about 15 days a month Frequency: daily for 3-4 decades. exacerbations 15 days a month. Duration of attacks: constant Prior Treatments for migraine: Cymbalta Propranolol ( for high BP, stopped due to low HR) Amitriptyline Topamax Fiorecet Tizanidine Amlodipine Keppra Zonisamide Zoloft Depakote Verapamil Benazepril Botox injections. Helped(Still daily headaches but less severe episodes). But insurance stopped paying for it. Cassi Rodrigez with chronic migraine pr (more content not included)... Normal [facility] CNOVon 01-04-2025 [facility] Office Visit (NEEPFV ) -- CASSI RODRIGEZ ([id number]) 1950 F Date Time Provider Department 01/04/25 2:00 PM ALEJANDRO VILLAR NEEPFV During your visit today, we recorded the following information about you: Pulse Blood pressure Weight Height 86/minute 127/61 87 kg 1.575 m Alejandro Villar MD, PhD 01/04/2025 2:17 PM Signed [facility] Patient Name: Cassi Rodrigez Date of : 1950 ESTABLISHED EPILEPSY CLINIC NOTE 01/04/2025 2:00 PM Reason for Visit: Follow Up Clinical Summary: Ms. Rodrigez is a 74 year old right-handed female seen in [facility]. There is no one accompanying the patient during today's visit. Classification Summary HISTORY OF PRESENT ILLNESS Handedness: right-handed Age of onset: Seizure History and Evolution [...] no clear triggers, unprovoked. 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 No auras since last visit. Some difficulty with memory. Not affecting function. Kidney specialist- she followed up with nephrology consult for decreased GFR. Put you on iron and vitamin D. Will follow up no specific recommendations- did imaging and right kidney shrunk. Spine surgery just completed surgery. Complicated by a hematoma in the right groing area, just letting resolve but stable. Back procedure helped. ZNS 300mg qHS LEV 750mg BID Tolerating medicine, compliant, needs refills on medicine. Coumadin continued, last numb 3.8, on hold to get to normal therapeutic range. LEV level 06/29/2024: 59.9 GFR 31 Total # of Current Anti-seizure Medications: Side Effects to Current Anti-seizure Medications: Seizure Frequency at First Visit: Longest Seizure-free Interval: CURRENT OUTPATIENT ANTISEIZURE MEDICATIONS (as of the start of the encounter) zonisamide (ZONEGRAN) 100 mg capsule Take 3 capsules by mouth daily at bedtime. levETIRAcetam (KEPPRA) 750 mg tablet Take 1 tablet by mouth two times a day. Prior Anti-seizure Therapies: Trial Adequacy: Max Daily Dose Achieved: Side Effects: Effectiveness: Comments: Gabapentin Levetiracetam Zonisamide Comorbidities: Episode Description: Patient Entered Data: EPILEPSY SCORE 12/28/2024 9:39 AM 12/28/2024 9:38 AM 12/28/2024 9:37 AM First answer obtained - 11/20/2019 11:07 PM PHQ-9 SCORE - - - - FANTA 2 SCORE 1 [Negative Anxiety Screen] - - - FANTA 7 SCORE - - - - QOLIE-10 SCORE (0=worst; 100=best QoL - higher scores represent better function) - - - - LSSS SCORE (0- no seizures 100- most severe possible seizures) - - - - C-SSRS SCREEN - - - - On average, how many hours of sleep do you get in a 24-hour period? - 8 - - PROMIS Sleep Disturbance T-SCORE - - - 54 [within normal limits] Have you been diagnosed with Sleep Apnea? 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 Contains abnormal data ALL BASIC (more content not included)... Normal [facility] Alanine aminotransferase [En zymatic activity/volume] in Serum or PlasmaOrdered By: Kristel Low on 11-24-2024 ALT [Catalytic activity/Vol] Alanine aminotransferase [Enzymatic activity/volume] in Serum or Plasma [facility] Albumin [Mass/volume] in Ser um or Plasma by Bromocresol green (BCG) dye binding methoOrdered By: Kristel Low on 11-24-2024 Albumin BCG dye [Mass/Vol] Albumin [Mass/volume] in Serum or Plasma by Bromocresol green (BCG) dye binding metho 3.5-5.7 [facility] Alkaline phosphatase [Enzyma tic activity/volume] in Serum or PlasmaOrdered By: Kristel Low on 11-24-2024 ALP [Catalytic activity/Vol] Alkaline phosphatase [Enzymatic activity/volume] in Serum or Plasma High 34-104 [facility] Appearance of UrineOrdered B y: Kristel Low on 11-24-2024 Appearance (U) Urine appearance Clear [facility] Aspartate aminotransferase [ Enzymatic activity/volume] in Serum or PlasmaOrdered By: Kristel Low on 11-24-2024 AST [Catalytic activity/Vol] Aspartate aminotransferase [Enzymatic activity/volume] in Serum or Plasma Low 13-39 [facility] Bacteria [Presence] in Urine by AutomatedOrdered By: Kristel Low on 11-24-2024 Bacteria Auto Ql (U) Bacteria [Presence] in Urine by Automated None Seen [facility] Basophils Auto (Bld) [#/Vol] Ordered By: Kristel Low on 11-24-2024 Basophils (Bld) [#/Vol] Automated basophil count 0.0-0.2 [facility] Basophils/100 WBC Auto (Bld) Ordered By: Kristel Low on 11-24-2024 Basophils/100 WBC (Bld) Automated basophil % . [facility] Bilirubin Test strip Ql (U)O rdered By: Kristel Low on 11-24-2024 Bilirubin Ql (U) Bilirubin.total [Pre sence] in Urine by Test strip Negative [facility] Bilirubin.total [Mass/volume ] in Serum or PlasmaOrdered By: Kristel Low on 11-24-2024 Bilirubin [Mass/Vol] Bilirubin.total [Mass/volume] in Serum or Plasma 0.3-1.0 [facility] Blood Cultureon 11-24-2024 Bacteria identified Cx Nom (Bld) NO GROWTH 5 DAYS PERFORMED BY: [facility] [address] [place] [address] PATHOLOGIST ASIC ENGINEER LEON MA M.D. Normal [facility] Comment on above: Performed By: #### C MP, PT, PTT, CUBLD, LACTIC, LIPASE, CBC ####[facility] [id number] Bacteria identified Cx Nom (Bld) NO GROWTH 5 DAYS PERFORMED BY: [facility] [address] [place] [address] PATHOLOGIST ASIC ENGINEER LEON MA M.D. Normal [facility] Comment on above: Performed By: #### C MP, PT, PTT, CUBLD, LACTIC, LIPASE, CBC #### [facility] [address] abdomen pelvis wo conon 0 11-24-2024 CT abdomen pelvis wo con [facility] Main [place] [address] [place] [address] CT Scan Report Signed Patient: Cassi Rodrigez MR#: [id number] 8 : 1950 Acct:[id number] Age/Sex: 74 / F ADM Date: 11/24/24 Loc: ER Room: Type: [facility] ER Attending Dr: Copies to: Kristel Low APRN Ordering Provider: Kristel Low APRN Date of Service: 11/24/24 CT/CT abdomen pelvis wo con: r/o abscess abd CT abdomen pelvis wo con 11/24/2024 3:05 PM SIGNS AND SYMPTOMS: Bruising, swelling, pain in right lower quadrant TECHNIQUE: Multidetector ct axial images of the abdomen and pelvis were obtained without IV contrast. Multiplanar reformats were performed and reviewed to further define anatomy and possible pathology. CT was performed with one or more of the following dose reduction techniques: Automated exposure control, adjustment of the mA and/or kV according to patient size, or use of iterative reconstruction technique. COMPARISON: None. FINDINGS: Lower Chest: There is a small left-sided pleural effusion. There is atelectasis at the left lung base. There is an 11 mm calcified granuloma in the right middle lobe. ABDOMEN: Liver: Calcified granulomas are noted in this liver. Bile Ducts: There is intrahepatic biliary which is presumably secondary to prior cholecystectomy/Whipple procedure. Gallbladder: Previously removed. Pancreas: Partially resected Spleen: Calcified granulomas are noted in the spleen. Adrenals: Within normal limits. Kidneys: There is right-sided renal cortical atrophy. Pelvis: Reproductive Organs: No pelvic masses. Ureters: Within normal limits. Bladder: Within normal limits. Bowel: Normal caliber. Postoperative changes are noted along the stomach consistent with the history of Whipple. Mesenteric Lymph Nodes: No enlarged mesenteric lymph nodes. Peritoneum: No ascites or free air, no fluid collection. Vessels: Atherosclerotic changes are noted in the abdominal aorta and its branches. There is an IVC filter. Retroperitoneum: Within normal limits. Abdominal Wall: There is a heterogeneous collection in the anterior abdominal wall to the right of midline near the pelvis measuring 12.3 x 4.0 x 6.5 cm in greatest dimension. This appears to represent a heterogeneous hematoma. Bones: Postoperative changes are noted at L5-S1. Degenerative changes are noted in the thoracolumbar spine. CT/CT abdomen pelvis wo con IMPRESSION: There is a heterogeneous collection in the anterior abdominal wall to the right of midline near the pelvis measuring 12.3 x 4.0 x 6.5 cm in greatest dimension. This appears to represent a heterogeneous hematoma. Postoperative changes are noted consistent with the history of a Whipple procedure. There is renal cortical atrophy, right greater than left. There is a small left-sided pleural effusion with adjacent atelectasis. Additional chronic appearing findings are noted as above. Impression dictated by: Arnel Simon M.D.11/24/2024 3:48 PM Dictation Location: [place] [address] Transcribed By: [facility] 11/24/24 1548 Dictated By: Arnel Simon II, MD 11/24/24 1538 Signed By: 11/24/24 1548 Normal [facility] Calcium [Mass/volume] in Ser um or PlasmaOrdered By: Kristel Low on 11-24-2024 Calcium [Mass/Vol] Calcium [Mass/volume ] in Serum or Plasma Low 8.6-10.3 [facility] Carbon dioxide, total [Moles /volume] in Serum or PlasmaOrdered By: Kristel Low on 11-24-2024 CO2 [Moles/Vol] Carbon dioxide, tota l [Moles/volume] in Serum or Plasma 21.0-31.0 [facility] Chloride [Moles/volume] in S akila or PlasmaOrdered By: Kristel Low on 11-24-2024 Chloride [Moles/Vol] Chloride [Moles/vol ume] in Serum or Plasma High 98-107 [facility] Color Auto (U)Ordered By: Oly Low on 11-24-2024 Color (U) Color of Urine by Auto Yellow Fi relaCounts include 234 beds at the [facility] Complete Blood Count Auto Di ffon 11-24-2024 Basophils (Bld) [#/Vol] 0.0 10*3/uL Normal 0.0-0.2 [facility] Comment on above: Result Comment: PERF ORMED BY: [place] [address] PATHOLOGIST ASIC ENGINEER LEON MA M.D. Performed By: #### C MP, PT, PTT, CUBLD, LACTIC, LIPASE, CBC #### [address] Basophils/100 WBC (Bld) 0.5 % Normal . [facility] Comment on above: Performed By: #### C MP, PT, PTT, CUBLD, LACTIC, LIPASE, CBC #### [address] Eosinophils (Bld) [#/Vol] 0.3 10*3/uL Normal 0.0-0.45 [facility] Comment on above: Performed By: #### C MP, PT, PTT, CUBLD, LACTIC, LIPASE, CBC #### [address] Eosinophils/100 WBC (Bld) 5.9 % Normal . [facility] Comment on above: Performed By: #### C MP, PT, PTT, CUBLD, LACTIC, LIPASE, CBC #### [address] Erythrocyte distribution width (RBC) [Ratio] 14.2 % Normal 11.9-15.3 [facility] Comment on above: Performed By: #### C MP, PT, PTT, CUBLD, LACTIC, LIPASE, CBC #### [address] Hematocrit (Bld) [Volume fraction] 28.7 % Low 34.0-46.4 [facility] Comment on above: Performed By: #### C MP, PT, PTT, CUBLD, LACTIC, LIPASE, CBC #### [address] Hemoglobin (Bld) [Mass/Vol] 9.7 g/dL Low 11.8-15.4 [facility] Comment on above: Performed By: #### C MP, PT, PTT, CUBLD, LACTIC, LIPASE, CBC #### [address] Lymphocytes (Bld) [#/Vol] 0.7 10*3/uL Low 1.00-4.8 [facility] Comment on above: Performed By: #### C MP, PT, PTT, CUBLD, LACTIC, LIPASE, CBC #### [address] Lymphocytes/100 WBC (Bld) 13.8 % Normal . [facility] Comment on above: Performed By: #### C MP, PT, PTT, CUBLD, LACTIC, LIPASE, CBC #### [address] MCH (RBC) [Entitic mass] 32.2 pg Normal 24.7-34.3 [facility] Comment on above: Performed By: #### C MP, PT, PTT, CUBLD, LACTIC, LIPASE, CBC #### [address] MCV (RBC) [Entitic vol] 95.4 fL Normal 80-100 [facility] Comment on above: Performed By: #### C MP, PT, PTT, CUBLD, LACTIC, LIPASE, CBC #### [address] Mean Corpuscular HGB Conc 33.8 g/dL Normal 32.0-35.0 [facility] Comment on above: Performed By: #### C MP, PT, PTT, CUBLD, LACTIC, LIPASE, CBC #### [address] Monocytes (Bld) [#/Vol] 0.4 10*3/uL Normal 0.0-0.8 [facility] Comment on above: Performed By: #### C MP, PT, PTT, CUBLD, LACTIC, LIPASE, CBC #### [address] Monocytes/100 WBC (Bld) 19.31 % Normal 0.00-20.00 [facility] Comment on above: Performed By: #### C MP, PT, PTT, CUBLD, LACTIC, LIPASE, CBC #### [address] Monocytes/100 WBC (Bld) 7.8 % Normal . [facility] Comment on above: Performed By: #### C MP, PT, PTT, CUBLD, LACTIC, LIPASE, CBC #### [address] Neutrophils (Bld) [#/Vol] 3.7 10*3/uL Normal 1.8-7.7 [facility] Comment on above: Performed By: #### C MP, PT, PTT, CUBLD, LACTIC, LIPASE, CBC #### [address] Neutrophils/100 WBC (Bld) 72.0 % Normal . [facility] Comment on above: Performed By: #### C MP, PT, PTT, CUBLD, LACTIC, LIPASE, CBC #### [address] NRBC% 0.1 /100{WBC} Normal 0-0.5 [facility] Comment on above: Performed By: #### C MP, PT, PTT, CUBLD, LACTIC, LIPASE, CBC #### [address] Platelet mean volume (Bld) [Entitic vol] 7.2 fL Normal 6.3-10.7 [facility] Comment on above: Performed By: #### C MP, PT, PTT, CUBLD, LACTIC, LIPASE, CBC #### [address] Platelets (Bld) [#/Vol] 286 10*3/uL Normal 150-450 [facility] Comment on above: Performed By: #### C MP, PT, PTT, CUBLD, LACTIC, LIPASE, CBC #### [address] RBC (Bld) [#/Vol] 3.01 10*6/uL Low 3.60-5.00 [facility] Comment on above: Performed By: #### C MP, PT, PTT, CUBLD, LACTIC, LIPASE, CBC #### [address] WBC (Bld) [#/Vol] 5.1 10*3/uL Normal 3.8-11.6 [facility] Comment on above: Performed By: #### C MP, PT, PTT, CUBLD, LACTIC, LIPASE, CBC #### [address] Comprehensive Metabolic Pane maxx 11-24-2024 Albumin [Mass/Vol] 3.6 g/dL Normal 3.5-5.7 [facility] Comment on above: Performed By: #### C MP, PT, PTT, CUBLD, LACTIC, LIPASE, CBC #### [address] Albumin/Globulin [Mass ratio] 1.4 {ratio} Normal [facility] Comment on above: Performed By: #### C MP, PT, PTT, CUBLD, LACTIC, LIPASE, CBC #### [address] ALP [Catalytic activity/Vol] 174 U/L High 34-104 [facility] Comment on above: Performed By: #### C MP, PT, PTT, CUBLD, LACTIC, LIPASE, CBC #### [address] ALT [Catalytic activity/Vol] 8 U/L Normal 7-52 [facility] Comment on above: Performed By: #### C MP, PT, PTT, CUBLD, LACTIC, LIPASE, CBC #### [address] Anion gap [Moles/Vol] 9.7 mmol/L Normal 6.0-15.0 [facility] Comment on above: Performed By: #### C MP, PT, PTT, CUBLD, LACTIC, LIPASE, CBC #### [address] AST [Catalytic activity/Vol] 12 U/L Low 13-39 [facility] Comment on above: Performed By: #### C MP, PT, PTT, CUBLD, LACTIC, LIPASE, CBC #### [address] Bilirubin [Mass/Vol] 0.7 mg/dL Normal 0.3-1.0 [facility] Comment on above: Performed By: #### C MP, PT, PTT, CUBLD, LACTIC, LIPASE, CBC #### [address] Calcium [Mass/Vol] 8.5 mg/dL Low 8.6-10.3 [facility] Comment on above: Performed By: #### C MP, PT, PTT, CUBLD, LACTIC, LIPASE, CBC #### [address] Chloride [Moles/Vol] 111 mmol/L High 98-107 [facility] Comment on above: Performed By: #### C MP, PT, PTT, CUBLD, LACTIC, LIPASE, CBC #### [address] CO2 [Moles/Vol] 23.6 mmol/L Normal 21.0-31.0 [facility] Comment on above: Performed By: #### C MP, PT, PTT, CUBLD, LACTIC, LIPASE, CBC #### [address] Creatinine [Mass/Vol] 1.66 mg/dL High 0.60-1.20 [facility] Comment on above: Performed By: #### C MP, PT, PTT, CUBLD, LACTIC, LIPASE, CBC #### [facility] [address] Creatinine Clr Calc Pharmacy 30.82 Normal [facility] Comment on above: Performed By: #### C MP, PT, PTT, CUBLD, LACTIC, LIPASE, CBC #### [facility] [address] Estimated GFR 32.179 mL/Min Normal [facility] Comment on above: Performed By: #### C MP, PT, PTT, CUBLD, LACTIC, LIPASE, CBC #### [facility] [address] Globulin (S) [Mass/Vol] 2.6 g/dL Normal T [facility] Comment on above: Performed By: #### C MP, PT, PTT, CUBLD, LACTIC, LIPASE, CBC #### [facility] [address] Glucose [Mass/Vol] 99 mg/dL Normal 70-100 [facility] Comment on above: Result Comment: [facility] Glucose Reference Range is dependent on time and content of last meal. Glucose of more than 200 mg/dL in a nonstressed, ambulatory subject supports the diagnosis of Diabetes Mellitus. ADA recommended reference range Performed By: #### C MP, PT, PTT, CUBLD, LACTIC, LIPASE, CBC #### [facility] [address] Potassium [Moles/Vol] 4.3 mmol/L Normal 3.5-5.1 [facility] Comment on above: Performed By: #### C MP, PT, PTT, CUBLD, LACTIC, LIPASE, CBC #### [facility] [address] Protein [Mass/Vol] 6.2 g/dL Low 6.4-8.9 [facility] Comment on above: Performed By: #### C MP, PT, PTT, CUBLD, LACTIC, LIPASE, CBC #### [facility] [address] Sodium [Moles/Vol] 140 mmol/L Normal 136-145 [facility] Comment on above: Performed By: #### C MP, PT, PTT, CUBLD, LACTIC, LIPASE, CBC #### [facility] [address] Urea nitrogen [Mass/Vol] 24 mg/dL Normal 7-25 [facility] Comment on above: Performed By: #### C MP, PT, PTT, CUBLD, LACTIC, LIPASE, CBC #### [facility] [address] Creatinine [Mass/volume] in Serum or PlasmaOrdered By: Kristel Low on 11-24-2024 Creatinine [Mass/Vol] Creatinine [Mass/v olume] in Serum or Plasma High 0.60-1.20 [facility] Dipstick and Microscopicon 0 11-24-2024 Appearance (U) Clear Normal Clear [facility] Comment on above: Order Comment: Name Collection Type:: Clean-Voided Midstream Performed By: #### A DDONUAPLUS ####[address] Bacteria,Urine None Seen Normal None Seen [facility] Comment on above: Order Comment: Name Collection Type:: Clean-Voided Midstream Performed By: #### A DDONUAPLUS ####[address] Bilirubin,Urine Negative Normal Negative [facility] Comment on above: Order Comment: Name Collection Type:: Clean-Voided Midstream Performed By: #### A DDONUAPLUS ####[address] Color (U) Light-Yellow Normal Yellow [facility] Comment on above: Order Comment: Name Collection Type:: Clean-Voided Midstream Performed By: #### A DDONUAPLUS ####[address] Glucose Ql (U) Normal Normal Normal [facility] Comment on above: Order Comment: Name Collection Type:: Clean-Voided Midstream Performed By: #### A DDONUAPLUS ####[address] [place] [address] [facility] Hyaline Casts,Urine 0 [LPF] Normal 0-8 [facility] Comment on above: Order Comment: Name Collection Type:: Clean-Voided Midstream Performed By: #### A DDONUAPLUS ####[address] [address] [facility] Ketones Ql (U) Negative Normal Negative [facility] Comment on above: Order Comment: Name Collection Type:: Clean-Voided Midstream Performed By: #### A DDONUAPLUS ####[address] [address] [facility] Leukocyte esterase Test strip Ql (U) 1+ High Negative [facility] Comment on above: Order Comment: Name Collection Type:: Clean-Voided Midstream Performed By: #### A DDONUAPLUS ####[address] [address] [place] Mucus,Urine Rare Normal [facility] Comment on above: Order Comment: Name Collection Type:: Clean-Voided Midstream Result Comment: PERF ORMED BY: [facility] [address] [place] [id number] PATHOLOGIST ASIC ENGINEER LEON MA M.D. Performed By: #### A DDONUAPLUS ####[address] [address] [facility] Nitrite,Urine Negative Normal Negative [facility] Comment on above: Order Comment: Name Collection Type:: Clean-Voided Midstream Performed By: #### A DDONUAPLUS ####[address] [address] [place] Occult Blood,Urine Negative Normal Negative [facility] Comment on above: Order Comment: Name Collection Type:: Clean-Voided Midstream Result Comment: PERF ORMED BY: [facility] [address] [place] [address] PATHOLOGIST ASIC ENGINEER LEON MA M.D. Performed By: #### A DDONUAPLUS ####[address] [address] [place] pH (U) 5.5 [pH] Normal 5.0-9.0 [facility] Comment on above: Order Comment: Name Collection Type:: Clean-Voided Midstream Performed By: #### A DDONUAPLUS ####[address] Protein,Urine Negative Normal Negative [facility] Comment on above: Order Comment: Name Collection Type:: Clean-Voided Midstream Performed By: #### A DDONUAPLUS ####[address] RBC,Urine 1 [HPF] Normal 0-4 [facility] Comment on above: Order Comment: Name Collection Type:: Clean-Voided Midstream Performed By: #### A DDONUAPLUS ####[address] Specificy [place]ox[place],Urine 1.020 Normal 1.00 1-1.03 0 [facility] Comment on above: Order Comment: Name Collection Type:: Clean-Voided Midstream Performed By: #### A DDONUAPLUS ####[address] Squamous Epithelial Cell,Urine 3 [HPF] High 0-2 [facility] Comment on above: Order Comment: Name Collection Type:: Clean-Voided Midstream Performed By: #### A DDONUAPLUS ####[address] Urobilinogen,Urine Normal Normal Normal [facility] Comment on above: Order Comment: Name Collection Type:: Clean-Voided Midstream Performed By: #### A DDONUAPLUS ####[address] WBC,Urine 1 [HPF] Normal 0-4 [facility] Comment on above: Order Comment: Name Collection Type:: Clean-Voided Midstream Performed By: #### A DDONUAPLUS ####[address] Eosinophils Auto (Bld) [#/Vo l]Ordered By: Kristel Low on 11-24-2024 Eosinophils (Bld) [#/Vol] Automated eosinophil count 0.0-0.45 [facility] Eosinophils/100 WBC Auto (Bl d)Ordered By: Kristel Low on 11-24-2024 Eosinophils/100 WBC (Bld) Automated eosinophil % . [facility] Epithelial cells.squamous [# /area] in Urine sediment by Automated countOrdered By: Kristel Low on 11-24-2024 Epithelial cells.squamous Auto (Urine sed) [#/Area] Epithelial cells.squamous [#/area] in Urine sediment by Automated count High 0-2 [facility] Erythrocyte distribution wid th Auto (RBC) [Ratio]Ordered By: Kristel Low on 11-24-2024 Erythrocyte distribution width (RBC) [Ratio] Erythrocyte distribution width [Ratio] by Automated count 11.9-15.3 [facility] Erythrocytes [#/area] in Uri ne sediment by Automated countOrdered By: Kristel Low on 11-24-2024 RBC Auto (Urine sed) [#/Area] Erythrocytes [#/area] in Urine sediment by Automated count 0-4 [facility] Globulin Calc (S) [Mass/Vol] Ordered By: Kristel Low on 11-24-2024 Globulin (S) [Mass/Vol] Serum globulin m easurement by calculation (mass/volume) [facility] Glucose [Mass/volume] in Ser um or PlasmaOrdered By: Kristel Low on 11-24-2024 Glucose [Mass/Vol] Glucose [Mass/volume ] in Serum or Plasma 70-100 [facility] Comment on above: ADA recommended refe rence rangeRandom Glucose Reference Range is dependent on time and content of last meal. Glucose of more than 200 mg/dL in a nonstressed, ambulatory subject supports the diagnosis of Diabetes Mellitus. Glucose [Mass/volume] in Uri ne by Test stripOrdered By: Kristel Low on 11-24-2024 Glucose Test strip (U) [Mass/Vol] Glucose [Mass/volume] in Urine by Test strip Normal [facility] Hematocrit Auto (Bld) [Volum e fraction]Ordered By: Kristel Low on 11-24-2024 Hematocrit (Bld) [Volume fraction] Hematocrit [Volume Fraction] of Blood by Automated count Low 34.0-46.4 [facility] Hemoglobin Test strip Ql (U) Ordered By: Kristel Low on 11-24-2024 Hemoglobin Ql (U) Hemoglobin [Presence ] in Urine by Test strip Negative [facility] Hemoglobin [Mass/volume] in BloodOrdered By: Kristel Low on 11-24-2024 Hemoglobin (Bld) [Mass/Vol] Hemoglobin [Mass/volume] in Blood Low 11.8-15.4 [facility] Hyaline casts [#/area] in Ur ine sediment by Automated countOrdered By: Kristel Low on 11-24-2024 Hyaline casts Auto (Urine sed) [#/Area] Hyaline casts [#/area] in Urine sediment by Automated count 0-8 [facility] INR in Platelet poor plasma by Coagulation assayOrdered By: Kristel Low on 11-24-2024 INR Coag (PPP) [Relative time] INR in Platelet poor plasma by Coagulation assay [facility] Comment on above: INR Therapeutic [...] with mechanical heart valves: 3 - 4.5 Ketones Test strip Ql (U)Ord ered By: Kristel Low on 11-24-2024 Ketones Ql (U) Ketones [Presence] i n Urine by Test strip Negative [facility] Laboratory - Microbiology an d Antimicrobial susceptibilityOrdered By: Kristel Low on 11-24-2024 Bacteria identified Cx Nom (Bld) NO GROWTH 5 DAYS [facility] Bacteria identified Cx Nom (Bld) NO GROWTH 5 DAYS [facility] Bacteria identified Cx Nom (Bld) NO GROWTH 5 DAYS [facility] Bacteria identified Cx Nom (Bld) NO GROWTH 5 DAYS [facility] Lactate [Moles/volume] in Se rum or PlasmaOrdered By: Kristel Low on 11-24-2024 Lactate [Moles/Vol] Lactate [Moles/volum e] in Serum or Plasma 0.5-2.2 [facility] Lactic Acidon 11-24-2024 Lactate [Moles/Vol] 0.8 mmol/L Normal 0.5-2.2 [facility] Comment on above: Result Comment: PERF ORMED BY: [facility] [address] [place] [place] [address] PATHOLOGIST ASIC ENGINEER LEON MA M.D. Performed By: #### C MP, PT, PTT, CUBLD, LACTIC, LIPASE, CBC #### [facility] [address] [place] [address] [place] Leukocyte esterase [Presence ] in Urine by Test stripOrdered By: Kristel Low on 11-24-2024 Leukocyte esterase Test strip Ql (U) Leukocyte esterase [Presence] in Urine by Test strip High Negative [facility] Leukocytes [#/area] in Urine sediment by Automated countOrdered By: Kristel Low on 11-24-2024 WBC Auto (Urine sed) [#/Area] Leukocytes [#/area] in Urine sediment by Automated count 0-4 [facility] Leukocytes [#/volume] correc tanesha for nucleated erythrocytes in Blood by Automated counOrdered By: Kristel Low on 11-24-2024 WBC corrected for nucl RBC Auto (Bld) [#/Vol] Leukocytes [#/volume] corrected for nucleated erythrocytes in Blood by Automated coun 3.8-11.6 [facility] Lipaseon 11-24-2024 Lipase [Catalytic activity/Vol] 10.0 U/L Low 11.0-82.0 [facility] Comment on above: Result Comment: PERF ORMED BY: [facility] [address] [place] [address] PATHOLOGIST ASIC ENGINEER LEON MA M.D. Performed By: #### C MP, PT, PTT, CUBLD, LACTIC, LIPASE, CBC #### [facility] [address] [place] [address] [place] Lipase [Enzymatic activity/v olume] in Serum or PlasmaOrdered By: Kristel Low on 11-24-2024 Lipase [Catalytic activity/Vol] Lipase [Enzymatic activity/volume] in Serum or Plasma Low 11.0-82.0 [facility] Lymphocytes Auto (Bld) [#/Vo l]Ordered By: Kristel Low on 11-24-2024 Lymphocytes (Bld) [#/Vol] Lymphocytes [#/volume] in Blood by Automated count Low 1.00-4.8 [facility] Lymphocytes/100 WBC Auto (Bl d)Ordered By: Kristel Low on 11-24-2024 Lymphocytes/100 WBC (Bld) Lymphocytes/100 leukocytes in Blood by Automated count . [facility] MCH Auto (RBC) [Entitic mass ]Ordered By: Kristel Low on 11-24-2024 MCH (RBC) [Entitic mass] MCH [Entitic mass] by Automated count 24.7-34.3 [facility] MCHC Auto (RBC) [Mass/Vol]Or dered By: Kristel Low on 11-24-2024 MCHC (RBC) [Mass/Vol] MCHC [Mass/volume] by Automated count 32.0-35.0 [facility] MCV Auto (RBC) [Entitic vol] Ordered By: Kristel Low on 11-24-2024 MCV (RBC) [Entitic vol] MCV [Entitic vol ume] by Automated count 80-100 [facility] Monocyte distribution width [Entitic volume] in Blood by AutomatedOrdered By: Kristel Low on 11-24-2024 Monocyte distribution width Auto (Bld) [Entitic vol] Monocyte distribution width [Entitic volume] in Blood by Automated 0.00-20.00 [facility] Monocytes Auto (Bld) [#/Vol] Ordered By: Kristel Low on 11-24-2024 Monocytes (Bld) [#/Vol] Automated blood monocyte count 0.0-0.8 [facility] Monocytes/100 WBC Auto (Bld) Ordered By: Kristel Low on 11-24-2024 Monocytes/100 WBC (Bld) Automated monocyte % . [facility] Mucus [Presence] in Urine by AutomatedOrdered By: Kristel Low on 11-24-2024 Mucus Auto Ql (U) Mucus [Presence] in Urine by Automated [facility] Neutrophils Auto (Bld) [#/Vo l]Ordered By: Kristel Low on 11-24-2024 Neutrophils (Bld) [#/Vol] Neutrophils [#/volume] in Blood by Automated count 1.8-7.7 [facility] Neutrophils/100 WBC Auto (Bl d)Ordered By: Kristel Low on 11-24-2024 Neutrophils/100 WBC (Bld) Automated neutrophil % . [facility] Nitrite Test strip Ql (U)Ord ered By: Kristel Low on 11-24-2024 Nitrite Ql (U) Nitrite [Presence] i n Urine by Test strip Negative [facility] No Panel InformationOrdered By: Kristel Low on 11-24-2024 Estimated GFR (CKD-EPI) 32.179 mL/Min [facility] Pharmacy Creatinine Clearance (Chem 30.82 [facility] Nucleated erythrocytes [Pres ence] in Blood by Automated countOrdered By: Kristel Low on 11-24-2024 Nucleated RBC Auto Ql (Bld) Nucleated erythrocytes [Presence] in Blood by Automated count 0-0.5 [facility] Partial Thromboplastin Timeo n 11-24-2024 aPTT Coag (Bld) [Time] 33.5 s Normal 25.1-36.5 [facility] Comment on above: Result Comment: A he matocrit value greater than 55% may lead to inaccurate results in coagulation testing. Patients having hematocrit values >55% require a special collection tube for coagulation studies. Please contact the laboratory at [phone] for redraw instructions. PERFORMED BY: [place] [id number] PATHOLOGIST ASIC ENGINEER LEON MA M.D. Performed By: #### C MP, PT, PTT, CUBLD, LACTIC, LIPASE, CBC #### [place] [id number] [facility] Platelet mean volume Auto (B ld) [Entitic vol]Ordered By: Kristel Low on 11-24-2024 Platelet mean volume (Bld) [Entitic vol] Platelet mean volume [Entitic volume] in Blood by Automated count 6.3-10.7 [facility] Platelets Auto (Bld) [#/Vol] Ordered By: Kristel Low on 11-24-2024 Platelets (Bld) [#/Vol] Platelets [#/vol ume] in Blood by Automated count 150-450 [facility] Potassium [Moles/volume] in Serum or PlasmaOrdered By: Kristel Low on 11-24-2024 Potassium [Moles/Vol] Potassium [Moles/v olume] in Serum or Plasma 3.5-5.1 [facility] Protein Test strip (U) [Mass /Vol]Ordered By: Kristel Low on 11-24-2024 Protein (U) [Mass/Vol] Protein [Mass/vol ume] in Urine by Test strip Negative [facility] Protein [Mass/volume] in Ser um or PlasmaOrdered By: Kristel Low on 11-24-2024 Protein [Mass/Vol] Protein [Mass/volume ] in Serum or Plasma Low 6.4-8.9 [facility] Prothrombin Time INRon 11-24 INR Coag (PPP) [Relative time] 2.0 {INR} Normal [facility] Comment on above: Result Comment: INR Therapeutic [...] 3 - 4.5 Performed By: #### C MP, PT, PTT, CUBLD, LACTIC, LIPASE, CBC #### [facility] [address] PT Coag (PPP) [Time] 22.8 s High 9.0-12.9 [facility] Comment on above: Result Comment: A he matocrit value greater than 55% may lead to inaccurate results in coagulation testing. Patients having hematocrit values >55% require a special collection tube for coagulation studies. Please contact the laboratory at [phone] for redraw instructions. Performed By: #### C MP, PT, PTT, CUBLD, LACTIC, LIPASE, CBC #### [facility] [address] Prothrombin time (PT)Ordered By: Kristel Low on 11-24-2024 PT Coag (PPP) [Time] Prothrombin time (PT) High 9.0- 12.9 [facility] Comment on above: A hematocrit value g reater than 55% may lead to inaccurate results in coagulation testing. Patients having hematocrit values >55% require a special collection tube for coagulation studies. Please contact the laboratory at [phone] for redraw instructions. RBC Auto (Bld) [#/Vol]Ordere d By: Kristel Low on 11-24-2024 RBC (Bld) [#/Vol] Erythrocytes [#/volu me] in Blood by Automated count Low 3.60-5.00 [facility] Serum or plasma albumin/glob ulin mass ratioOrdered By: Kristel Low on 11-24-2024 Albumin/Globulin [Mass ratio] Serum or plasma albumin/globulin mass ratio [facility] Serum or plasma anion gap de terminationOrdered By: Kristel Low on 11-24-2024 Anion gap [Moles/Vol] Serum or plasma an ion gap determination 6.0-15.0 [facility] Sodium [Moles/volume] in Ser um or PlasmaOrdered By: Kristel Low 11-24-2024 Sodium [Moles/Vol] Sodium [Moles/volume ] in Serum or Plasma 136-145 [facility] Specific gravity Test strip (U) [Rel density]Ordered By: Kristel Low on 11-24-2024 Specific gravity (U) [Rel density] Specific gravity of Urine by Test strip 1.001-1.03 0 [facility] Urea nitrogen [Mass/volume] in Serum or PlasmaOrdered By: Kristel Low 11-24-2024 Urea nitrogen [Mass/Vol] Urea nitrogen [Mass/volume] in Serum or Plasma 7-25 [facility] Urobilinogen Test strip (U) [Mass/Vol]Ordered By: Kristel Low on 11-24-2024 Urobilinogen (U) [Mass/Vol] Urobilinogen [Mass/volume] in Urine by Test strip Normal [facility] WBC Auto (Bld) [#/Vol]Ordere d By: Kristel Low on 11-24-2024 WBC (Bld) [#/Vol] Leukocytes [#/volume ] in Blood by Automated count 3.8-11.6 [facility] aPTT in Platelet poor plasma by Coagulation assayOrdered By: Kristel Low on 11-24-2024 aPTT Coag (PPP) [Time] Activated partial thromboplastin time (aPTT) in platelet poor plasma by coagulation a 25.1-36.5 [facility] Comment on above: A hematocrit value g reater than 55% may lead to inaccurate results in coagulation testing. Patients having hematocrit values >55% require a special collection tube for coagulation studies. Please contact the laboratory at [phone] for redraw instructions. pH Test strip (U)Ordered By: Kristel Low on 11-24-2024 pH (U) pH of Urine by Test strip 5.0-9.0 [facility] Ionized Calciumon 11-06-2024 Calcium.ionized ISE [Mass/Vol] 4.5 mg/dL Invalid Interpretation Code 4.5-5.6 [facility] Comment on above: Result Comment: Perf ormed at: [facility] [address] [id number] PhD Digna Quiroga Performed By: #### [id number] #### [facility] [address] [place] [id number] Main OR Intraoperative Recor don 11-06-2024 Main OR Intraoperative Record Main OR Intraoperative Record IntraOp Document Type FT Summary Primary Physician: Shashi De Souza MD Finalized Date/Time: 11/06/24 08:14:44 Pt. Name: CASSI RODRIGEZ/Sex: 1950 Female Med Rec #: [id number] Physician: Shashi De Souza MD Financial #: [id number] Pt. Type: O Room/Bed: [facility]/ Admit/Disch: 11/02/24 10:13:03 - 11/03/24 15:25:00 Institution: Case Times FT Entry 1 Patient Times In Room 11/02/24 14:07:00 Out Room 11/02/24 15:48:00 Procedure Times Start 11/02/24 14:37:00 Stop 11/02/24 15:41:00 Anesthesia Times Start 11/02/24 14:07:00 Stop 11/02/24 15:48:00 Last Modified By: Renetta Melendez 11/02/24 15:51:38 General Comments: 11/06/24 Chart opened to review and send charges LRoth CSFA Case Attendance FT Entry 1 Entry 2 Entry 3 Case Attendee Yash CARCAMO, Ani De Souza MD, Renetta Topete Role Performed PHOTOGRAPHY PROFESSOR Surgeon - Primary Commercial Cleaner - Primary Time In 11/02/24 14:07:00 11/02/24 14:07:00 11/02/24 14:07:00 Time Out 11/02/24 15:48:00 11/02/24 15:48:00 11/02/24 15:48:00 Procedure LUMBAR LAMINECTOMY LUMBAR LAMINECTOMY LUMBAR LAMINECTOMY POSS. FUSION(.) POSS. FUSION(.) POSS. FUSION(.) Comments IS SUPERVISING Last Modified By: Renetta Melendez Kelsie E Burgderfer, Kelsie E 11/02/24 15:51:39 11/02/24 15:51:39 11/02/24 15:51:39 Entry 4 Entry 5 Entry 6 Case Attendee Home Priest, Katy Eastman Role Performed Scrub - Primary TRAFFIC AGENT Motion Picture Set Grip Time In 11/02/24 14:07:00 11/02/24 14:07:00 11/02/24 14:07:00 Time Out 11/02/24 15:48:00 11/02/24 15:48:00 11/02/24 15:48:00 Procedure LUMBAR LAMINECTOMY LUMBAR LAMINECTOMY LUMBAR LAMINECTOMY POSS. FUSION(.) POSS. FUSION(.) POSS. FUSION(.) Comments Last Modified By: Renetta Melendez Kelsie E Burgderfer, Kelsie E 12/19/24 15:51:39 11/02/24 15:51:39 11/02/24 15:51:39 Entry 7 Entry 8 Case Attendee Sakina EmmettCj Grimaldo Ii Role Performed Staff - Other Anesthesiologist Manual Winder Time In 11/02/24 14:07:00 11/02/24 14:53:00 Time Out 11/02/24 14:25:00 11/02/24 15:10:00 Procedure LUMBAR LAMINECTOMY LUMBAR LAMINECTOMY POSS. FUSION(.) POSS. FUSION(.) Comments POSITIONING HELP IS SUPERVISING AND BREAK RELIEF Last Modified By: Renetta Melendez Kelsie E 11/02/24 15:51:39 11/02/24 15:51:39 General Comments: [place], IN ATTENDANCE.AVERY CARTER. Perioperative Protocols FT Pre-Care Text: Implements protective measures prior to operative or invasive procedure, confirms identity before the operative or invasive procedure, verifies operative procedure, surgical site, and laterality Entry 1 Procedure(s) LUMBAR LAMINECTOMY Patient Identity Birthday, ID Band POSS. FUSION(.) Verified (select at Check, Patient least 2): Participation Consents / H and P Anesthesia Consent, Operative Site N/A Verified H&P, Surgery/Procedure Marking Verified Consent, Transfusion Consent Surgical Site Yes Laterality Verified n/a Verified Procedure Verified Yes Correct Patient Yes Position Verified Availability Equipment, Implant, Prep Dry Yes Verified (If Medication, X-ray Applicable) PreOp Antibiotic Yes Time Out Ani Berrios CRNA, Given Participants Ap PAUL, Shashi Barragan, Renetta Melendez, Home Priest, Christal Perez Ott, Amy Time Out Complete 11/02/24 14:35:00 Outcomes Met? Yes Last Modified By: Renetta Melendez 11/02/24 14:44:30 Post-Care Text: The patient is free from signs and symptoms of injury caused by extraneous objects Allergy Information FT Pre-Care Text: Verifies allergies Entry 1 Allergies Reviewed? Yes Allergies Reviewed Self/Patient With Outcomes Met? Yes Last Modified By: Renetta Melendez 11/02/24 14:36:08 Post-Care Text: The patient received appropriate medication(s) safely administered during the perioperative period Surgical Procedures FT Entry 1 Procedure Description Procedure LUMBAR LAMINECTOMY Modifiers . POSS. FUSION Surgeon Description MINI OPEN NAVIGATED LAMINECTOMY, FACETECTOMY, FORAMINOTOMY, L4-5 MICRODISSECTION, FLOUROSCOPY, PRE-OP STEREOTACTIC PLANNING, AUTOGRAFT, ARTHRODESIS, EXPLORATION SPINAL FUSION L5-S1 Primary Procedure Yes Primary Surgeon Shashi De Souza MD Start 11/02/24 14:37:00 Stop 11/02/24 15:41:00 Anesthesia Type General Surgical Service Neurology Wound Class 1 - Clean Last Modified By: Renetta Melendez 11/02/24 15:51:42 General Case Data FT Pre-Care Text: Classifies surgical wound, implements aseptic technique, initiates traffic control Entry 1 Case Information OR OR 7 FT Case Level Level 4 Wound Class 1 - Clean Specialty Neurology ASA Class 3 Preop Diagnosis M54.40 ( Lumbago with Postop Same As Preop Yes sciatica, unspecified side) Postop Diagnosis M54.40 ( Lumbago with Outcomes Met? Yes sciati (more content not included)... Normal [facility] BMPon 11-03-2024 Anion gap [Moles/Vol] 8 mmol/L Normal 6-16 [facility] Comment on above: Performed By: #### 2 [id number] #### [facility] [address] [place] [address] Calcium [Mass/Vol] 8.0 mg/dL Low 8.9-11.1 [facility] Comment on above: Performed By: #### 2 [id number] #### [facility] [address] [place] [address] Chloride [Moles/Vol] 110 mmol/L Normal 101-111 [facility] Comment on above: Performed By: #### 2 [id number] #### [facility] [address] [place] [address] CO2 [Moles/Vol] 24 mmol/L Normal 21-31 [facility] Comment on above: Performed By: #### 2 [id number] #### [facility] [address] [place] [address] Creatinine [Mass/Vol] 1.6 mg/dL High 0.5-1.3 [facility] Comment on above: Performed By: #### 2 [id number] #### [facility] [address] [place] [address] Glucose [Mass/Vol] 106 mg/dL Normal 55-199 [facility] Comment on above: Performed By: #### 2 [id number] #### [facility] [address] [place] [address] Potassium [Moles/Vol] 4.1 mmol/L Normal 3.5-5.3 [facility] Comment on above: Performed By: #### 2 [id number] #### [facility] [address] [place] [address] Sodium [Moles/Vol] 138 mmol/L Normal 135-145 [facility] Comment on above: Performed By: #### 2 [id number] #### [facility] [address] [place] [address] Urea nitrogen [Mass/Vol] 20 mg/dL Normal 5-21 [facility] Comment on above: Performed By: #### 2 [id number] #### [facility] [address] [place] [address] Urea nitrogen/Creatinine [Mass ratio] 12 No Units Normal 10-20 [facility] Comment on above: Performed By: #### 2 [id number] #### [facility] [address] [place] [address] CBC w/Indiceson 11-03-2024 Erythrocyte distribution width (RBC) [Ratio] 14.4 % High 10.9-14.2 [facility] Comment on above: Performed By: #### 2 [id number] #### [facility] [address] [place] [address] Hematocrit (Bld) [Volume fraction] 35.4 % Normal 34.0-46.0 [facility] Comment on above: Performed By: #### 2 [id number] #### [facility] [address] [place] [address] Hemoglobin (Bld) [Mass/Vol] 11.9 g/dL Low 12.0-16.0 [facility] Comment on above: Performed By: #### 2 [id number] #### [facility] [address] [place] [address] MCH (RBC) [Entitic mass] 31.9 pg Normal 27.0-34.0 [facility] Comment on above: Performed By: #### 2 [id number] #### [facility] [address] [place] [address] MCHC (RBC) [Mass/Vol] 33.7 g/dL Normal 31.4-36.0 [facility] Comment on above: Performed By: #### 2 [id number] #### [facility] [address] [place] [address] MCV (RBC) [Entitic vol] 94.5 fL Normal 80.0-100.0 [facility] Comment on above: Performed By: #### 2 [id number] #### [facility] [address] [place] [address] Platelet mean volume (Bld) [Entitic vol] 7.4 fL Normal 6.4-10.8 [facility] Comment on above: Performed By: #### 2 [id number] #### [facility] [address] [place] [address] Platelets (Bld) [#/Vol] 183.0 E9/L Normal 150. 0-500. 0 [facility] Comment on above: Performed By: #### 2 [id number] #### [facility] [address] [place] [address] RBC (Bld) [#/Vol] 3.7 E12/L Low 4.3-5.9 [facility] Comment on above: Performed By: #### 2 [id number] #### [facility] [address] [place] [address] RBC size Nom (Bld) NORMAL Invalid Interpretation Code [facility] Comment on above: Performed By: #### 2 [id number] #### [facility] [address] [place] [address] WBC corrected for nucl RBC Auto (Bld) [#/Vol] 5.4 E9/L Normal 4.0-11.0 [facility] Comment on above: Performed By: #### 2 [id number] #### [facility] [address] [place] [address] CHEMISTRYOrdered By: SYSTEM SYSTEM on 11-03-2024 Anion gap [Moles/Vol] 8 mmol/L Normal 6 - 16 mEq/L Remisol Chem Calcium [Mass/Vol] 8.0 mg/dL Low 8.9 - 11. 1 mg/dL Remisol Chem Chloride [Moles/Vol] 110 mmol/L Normal 101 - 1 11 mmol/L Remisol Chem CO2 [Moles/Vol] 24 mmol/L Normal 21 - 31 mmol/L Remisol Chem Creatinine [Mass/Vol] 1.6 mg/dL High 0.5 - 1.3 mg/dL Remisol Chem eGFR 33 mL/min/1.73 m2 Low >=59mL/min /1.73 m2 Remisol Chem Glucose [Mass/Vol] 106 mg/dL Normal 55 - 199 mg/dL [facility] Chem Magnesium [Mass/Vol] 1.8 mg/dL Normal 1.3 - 2 .4 mg/dL [facility] Chem Phosphate [Mass/Vol] 3.1 mg/dL Normal 1.9 - 4 .6 mg/dL [facility] Chem Potassium [Moles/Vol] 4.1 mmol/L Normal 3.5 - 5.3 mmol/L [facility] Chem Sodium [Moles/Vol] 138 mmol/L Normal 135 - 145 mmol/L [facility] Chem Urea nitrogen [Mass/Vol] 20 mg/dL Normal 5 - 21 mg/dL [facility] Chem Urea nitrogen/Creatinine [Mass ratio] 12 mg/mg Normal 10 - 20 Remisol Chem Discharge Note-Nursingon Discharge Note-Nursing Discharge Note-Molly terry CASSI RODRIGEZ :1950 Visit Date:11/02/2024 Inpatient Discharge Instructions Your Care Team Admitting Physician - Shashi De Souza MD Consulting Physician - Karol NUNEZ MD Referring Physician - Shashi De Souza MD Reason for Your Visit spinal surgery Your Diagnosis Lumbar stenosis Hypertension Presence of cardiac pacemaker History of DVT of lower extremity Anticoagulated Epilepsy Asthma Chronic GERD Chronic renal insufficiency, stage III (moderate) Tests Performed Ionized Calcium Level -- Results Pending -- Spine XR Single View Specify Level -- Results Pending -- Please visit your patient portal for your results or contact your primary care physician. This Is Your Medications List acetaminophen (Tylenol) acetaminophen-oxycodone (Percocet 5 mg-325 mg oral tablet) amitriptyline (amitriptyline 50 mg Tab) amlodipine carvedilol enoxaparin (enoxaparin 100 mg/mL SubQ Gloria) ergocalciferol (Vitamin D) ferrous sulfate levetiracetam losartan (losartan 25 mg Tab) omeprazole (Prilosec) venlafaxine warfarin (warfarin 4 mg Tab) warfarin (warfarin 4 mg Tab) zonisamide (Zonegran) Procedure History Laminectomy (11/02/2024), Appendectomy; (11/07/1960), Arthroscopy of shoulder, Cardiac pacemaker, device, Cataract surgery, Cholecystectomy, Colonoscopy, EGD - esophagogastroduodenoscopy , Hammer toe operation, History of cervical laminectomy, History of lumbar laminectomy, History of Whipple procedure, Implantable venous catheter, device, Lobectomy of brain. Discharge Vitals Temperature (Axillary) 36.4 ???C Heart Rate (Monitored) 58 Respiratory Rate 16 Blood Pressure 113/68 Height 157.48 cm Weight 88.9 kg BMI 35.85 What to do next Instructions From Your Doctor No qualifying data available. New Follow Up Appointments after Discharge Follow Up with BRODERICK HOWARD When: Comments: No need to see PCP at this time unless symptoms worsen. Where: [address] [place] [address]- Business (1) Follow Up with Shashi De Souza When: Comments: f/u3wks ok shower and remove dressing [id number] no lift>5lbs keep incis dry clean. restart coumadin 3 days after surgery. 11-05-24Wednesday. Where: [address] [facility], [address] [place] [phone] Business (1) Medications What How Much When Why Instructions Next Dose New acetaminophen-oxycodone (Percocet 5 mg-325 mg oral tablet) 1 Tablets By Mouth 3 times a day as needed for Pain 4-7 Lumbar stenosis Duration: 7 Days Pickup at [facility]/pharmacy #[id number] as needed for pain Changed warfarin (warfarin 4 mg Tab) 0.5 Tablets By Mouth Wednesday, Wednesday, Wednesday, , Wednesday & Wednesday resume 11-05-2024 Changed warfarin (warfarin 4 mg Tab) 1 Tablets By Mouth Wednesday resume 11-05-2024 Unchanged acetaminophen (Tylenol) 500 Milligram By Mouth Every 6 hours as needed for as needed for pain as needed for pain Unchanged amitriptyline (amitriptyline 50 mg Tab) 1 Tablets By Mouth Once a day (at bedtime) 11/03 @ 9pm Unchanged amlodipine 5 Milligram By Mouth Every day 11/04 @ 9am Unchanged carvedilol 12.5 Milligram By Mouth 2 times a day 11/03 @ 9pm Unchanged enoxaparin (enoxaparin 100 mg/ mL SubQ Gloria) 100 Milligram Subcutaneous Every 12 hours Bridging with Warfarin for surgery 11/03 @ 9pm Unchanged ergocalciferol (Vitamin D) 50,000 International unit By Mouth Every week resume as prescribed Unchanged ferrous sulfate 325 Milligram By Mouth Every other day 11/05 @ 9am Unchanged levetiracetam 750 Milligram By Mouth 2 times a day 11/03 @ 9pm Unchanged losartan (losartan 25 mg Tab) 1 Tablets By Mouth Every day 11/04 @ 9am Unchanged omeprazole (Prilosec) 40 Milligram By Mouth Every day 11/04 @ 9am Unchanged venlafaxine 150 Milligram By Mouth Every day 11/04 @ 9am Unchanged zonisamide (Zonegran) 300 Milligram By Mouth Once a day (at bedtime) 11/03 @ 9pm Pharmacy Information [facility]/pharmacy #[id number]: [address], [place] [id number] [phone] Test Results CBC BMP WBC: 5.4 E9/L (11/03/24 05:56:00) Glucose Lvl: 106 mg/dL (11/03/24 05:56:00) RBC: 3.7 E12/L Low (11/03/24 05:56:00) BUN: 20 mg/dL (11/03/24 05:56:00) HGB: 11.9 gm/dL Low (11/03/24 05:56:00) Creatinine: 1.6 mg/dL High (11/03/24 05:56:00) Hct: 35.4 % (11/03/24 05:56:00) BUN/Creat Ratio: 12 (11/03/24 05:56:00) MCV: 94.5 fL (11/03/24 05:56:00) Sodium Lvl: 138 mmol/L (11/03/24 05:56:00) MCH: 31.9 pg (11/03/24 05:56:00) Potassium Lvl: 4.1 mmol/L (11/03/24 05:56:00) MCHC: 33.7 gm/dL (11/03/24 05:56:00) Chloride: 110 mmol/L (11/03/24 05:56:00) RDW: 14.4 % High (11/03/24 05:56:00) CO2: 24 mmol/L (11/03/24 05:56:00) Platelet: 183 E9/L (11/03/24 05:56:00) AGAP: 8 mEq/L (11/03/24 05:56:00) MPV: 7.4 fL (11/03/24 05:56:00) Calcium Lvl: 8 mg/dL Low (11/03/24 05:56:00) Allergies Lyrica (Rash) dexAMETHasone (Rash) Education Materials (more content not included)... Normal [facility] HEMATOLOGYOrdered By: SYSTEM SYSTEM on 11-03-2024 Erythrocyte distribution width (RBC) [Ratio] 14.4 % High 10.9 - 14.2 % Remisol Heme Hematocrit (Bld) [Volume fraction] 35.4 % Normal 34.0 - 46.0 % Remisol Heme Hemoglobin (Bld) [Mass/Vol] 11.9 g/dL Low 12.0 - 16.0 gm/dL Remisol Heme MCH (RBC) [Entitic mass] 31.9 pg Normal 27.0 - 34.0 pg Remisol Heme MCHC (RBC) [Mass/Vol] 33.7 g/dL Normal 31.4 - 36.0 gm/dL Remisol Heme MCV (RBC) [Entitic vol] 94.5 fL Normal 80.0 - 100.0 fL Remisol Heme Platelet mean volume (Bld) [Entitic vol] 7.4 fL Normal 6.4 - 10.8 fL Remisol Heme Platelets (Bld) [#/Vol] 183.0 E9/L Normal 150. 0 - 500.0 E9/L Remisol Heme RBC (Bld) [#/Vol] 3.7 E12/L Low 4.3 - 5.9 E12/L Remisol Heme RBC size Nom (Bld) NORMAL *NA* (11/03/24 5:56 AM) Invalid Interpretation Code Remisol Heme WBC corrected for nucl RBC Auto (Bld) [#/Vol] 5.4 E9/L Normal 4.0 - 11.0 E9/L Remisol Heme Interdisciplinary Note - Robb e Manageron 11-03-2024 Interdisciplinary Note - Cupola Tender Helper Interdisciplinary Note - Cupola Tender Helper CRM to room 303 Patient is awake, alert and oriented. Patient is from home with her spouse. They are patient transport home. Patient verified PCP, DME and insurance. Patient had spinal Sx. She is assigned to Dr De Souza and hospitalist Katarzyna LUCERO. Per Katarzyna patient will DC if Dr De Souza clears. Patient was cleared by PT/OT. Patient has FWW and cane at home. Patient declined DC needs for HH, Paramed or DME. Patient was provided CRM contact, white board updated. CRM following Normal [facility] Comment on above: Result Comment: Elec tronically Signed By: Christal Chapman\.br\Date and Time Signed: 11/03/24 10:51 EST Interdisciplinary Note - Gila n 11-03-2024 Interdisciplinary Note - OT Interdisciplinary Note - OT Ot [facility] six clicks score = no further OT needs. Patient is modified Ind w/ LE self care after instruction, Sup with transfers w/ fww. Pt has spouse support at home and will be safe to return home when medically stable. Pt has all necessary bathroom dme already in place. Normal [facility] Magnesiumon 11-03-2024 Magnesium [Mass/Vol] 1.8 mg/dL Normal 1.3-2.4 [facility] Comment on above: Performed By: #### 2 [id number] #### [facility] [address] [place] [address] Phosphoruson 11-03-2024 Phosphate [Mass/Vol] 3.1 mg/dL Normal 1.9-4.6 Thomas magana [facility] Comment on above: Performed By: #### 2 [id number] #### [facility] [address] [place] [address] XR Spine Single View Specify Levelon 11-03-2024 XR Spine Single View Specify Level Exam Date/Time: 11/02/2024 16:28 EST Reason for Exam: Disc problems Report IMPRESSION: INTEROPERATIVE FLUOROSCOPY. CLINICAL HISTORY: Disc problems COMPARISON: NONE. FINDINGS: 3 images. 23.48mGy. Images show probe advanced through the cannula utilizing posterior approach with tip identified abutting lower lumbar spine. Please review operative note for additional information. Ordering Provider: Shashi De Souza FINAL REPORT Dictated: 11/03/2024 3:15 pm Broderick Sunshine MD Signed (Electronic Signature): 11/03/2024 3:15 pm Signed by: Broderick Sunshine MD Transcribed by: CLINTON Technologist: CHANTALE Technical Comments Radiation Dose: Ka,r in mGy = 23.48 DAP = na Fluoro Time: 26 seconds Normal [facility] eGFRon 11-03-2024 eGFR 33 mL/min/1.73 m2 Low >=59 [facility] Comment on above: Performed By: #### 1 [id number] #### [facility] [address] [place] [address] ABO/Rhon 11-02-2024 ABO/Rh Positive Invalid Interpretation Code [facility] Comment on above: Performed By: #### 2 [id number] #### [facility] [address] [place] [address] ABO/Rh History Checkon 11-02 ABO/Rh History Check Verified Hx Blood Type Normal [facility] Comment on above: Performed By: #### 1 [id number] #### [facility] [address] [place] [address] ABSCon 11-02-2024 ABSC Gel Interp Negative Normal [facility] Comment on above: Performed By: #### 1 [id number] #### [facility] [address] [place] [address] BLOOD BANKOrdered By: Ericka Srinivasan on 11-02-2024 ABO/Rh Interp Positive Invalid Interpretation Code [facility] [place] Subsection ABSC Gel Interp Negative (11/02/24 11:08 AM) Normal [facility] [place] Subsection Blood Bank ID#on 11-02-2024 BBID# [id number] Invalid Interpretation Code [facility] Comment on above: Performed By: #### 1 [id number] #### [facility] [address] [place] [address] COAGULATIONOrdered By: Krish Srinivasan on 11-02-2024 aPTT Coag (PPP) [Time] 43.4 s High 25.1 - 36.5 second(s) [facility] Comment on above: Interpretive Data: P arameter 15 days - 4 weeks 1 - 5 months 6 - 11 months 1 - 5 years 6 - 10 years 11 - 17 years PTT Mean: 35.4 (27.6-45.6) Mean: 33.5 (24.8-40.7) Mean: 32.4 (25.1-40.7) Mean: 31.6 (24.0-39.2) Mean: 31.6 (26.9-38.7) Mean: 31.0 (24.6-38.4) Pediatric Reference ranges were obtained from a study by Reed Skinner et al. prepared from 1437 samples obtained at 7 different centers using the same coagulation reagent and instrumentation as [facility] Currently there are no coagulation studies available worldwide for children to 14 days, and no normal ranges. Heparin therapeutic range (represented by Anti-Factor Xa activity of 0.2 - 0.4 U/mL) corresponds to PTT of 56.6 - 109.0 sec. INR Coag (PPP) [Relative time] 1.26 {INR} Invalid Interpretation Code [facility] Comment on above: Interpretive Data: I NR results are specifically intended to assess patients stabilized on long-term Anticoagulation therapy suggested INR s Less Intensive Anticoagulation 2.0 3.0 Conventional Range 3.0 4.5 PT Coag (PPP) [Time] 14.1 s High 9.4 - 1 2.5 second(s) [facility] Comment on above: Interpretive Data: 1 5 days - 4 weeks 1 - 5 months 6 -11 months 1 5 years 6 10 years 11 -17 years Mean: 11.2 (9.5 12.6) Mean: 11.0 (9.7 12.8) Mean: 11.0 (9.8 13.0) Mean: 11.3 (9.9 13.4) Mean: 11.7 (10.0 14.6) Mean: 11.8 (10.0 - 14.1) Pediatric Reference ranges were obtained from a study by Reed Skinner et al. prepared from 1437 samples obtained at 7 different centers using the same coagulation reagent and instrumentation as [facility] Currently there are no coagulation studies available worldwide for children to 14 days, and no normal ranges. Inpatient Patient Summaryon 11-02-2024 Inpatient Patient Summary Inpatient Patient Summary [place] [id number] [facility] Clinical Discharge Instructions PERSON INFORMATION Name: CASSI RODRIGEZ PHYSICIANS Admitting Physician: Shashi De Souza MD Attending Physician: Shashi De Souza MD PCP: BRODERICK HOWARD DO Discharge Diagnosis: Comment: PATIENT EDUCATION INFORMATION Instructions: Medication Leaflets: Follow up: With: Address: When: Shashi De Souza [address] [facility], [address] [place] [phone] Business (1) Comments: f/u3wks ok shower and remove dressing [id number] no lift>5lbs keep incis dry clean. restart coumadin 3 days after surgery. 11-05-24Wednesday. MEDICATION LIST New Medications [facility]/pharmacy #[id number], [address], [place] [id number], [phone] acetaminophen-oxycodone (Percocet 5 mg-325 mg oral tablet) 1 Tablets By Mouth 3 times a day as needed Pain 4-7 for 7 Days. Refills: 0. Medications to Continue with No Changes Other Medications acetaminophen (Tylenol) 500 Milligram By Mouth every 6 hours as needed as needed for pain. amitriptyline (amitriptyline 50 mg Tab) 1 Tablets By Mouth once a day (at bedtime). amlodipine 5 Milligram By Mouth every day. carvedilol 12.5 Milligram By Mouth 2 times a day. enoxaparin (enoxaparin 100 mg/mL SubQ Gloria) 100 Milligram Subcutaneous every 12 hours. Bridging with Warfarin for surgery. ergocalciferol (Vitamin D) 50,000 International unit By Mouth every week. ferrous sulfate 325 Milligram By Mouth every other day. levetiracetam 750 Milligram By Mouth 2 times a day. losartan (losartan 25 mg Tab) 1 Tablets By Mouth every day. omeprazole (Prilosec) 40 Milligram By Mouth every day. venlafaxine 150 Milligram By Mouth every day. zonisamide (Zonegran) 300 Milligram By Mouth once a day (at bedtime)., unsure of dosage- takes 3 tablets No Longer Take the Following Medications warfarin 4 Milligram By Mouth every day. takes on saturdays. warfarin 2.5 Milligram By Mouth every day. takes 6 days of the week. Comment: Normal [facility] Main OR Intraoperative Recor don 11-02-2024 Main OR Intraoperative Record Main OR Intraoperative Record IntraOp Document Type FT Summary Primary Physician: Shashi De Souza MD Finalized Date/Time: 11/02/24 15:52:16 Pt. Name: CASSI RODRIGEZ DEVAN Bruna/Sex: 1950 Female Med Rec #: [id number] Physician: Shashi De Souza MD Financial #: [id number] Pt. Type: A Room/Bed: Admit/Disch: 11/02/24 10:13:03 - Institution: Case Times FT Entry 1 Patient Times In Room 11/02/24 14:07:00 Out Room 11/02/24 15:48:00 Procedure Times Start 11/02/24 14:37:00 Stop 11/02/24 15:41:00 Anesthesia Times Start 11/02/24 14:07:00 Stop 11/02/24 15:48:00 Last Modified By: Renetta Melendez 11/02/24 15:51:38 Case Attendance FT Entry 1 Entry 2 Entry 3 Case Attendee Yash CARCAMO Ani De Souza MD, Renetta Topete Role Performed PHOTOGRAPHY PROFESSOR Surgeon - Primary Commercial Cleaner - Primary Time In 11/02/24 14:07:00 11/02/24 14:07:00 11/02/24 14:07:00 Time Out 11/02/24 15:48:00 11/02/24 15:48:00 11/02/24 15:48:00 Procedure LUMBAR LAMINECTOMY LUMBAR LAMINECTOMY LUMBAR LAMINECTOMY POSS. FUSION(.) POSS. FUSION(.) POSS. FUSION(.) Comments IS SUPERVISING Last Modified By: Renetta Melendez Kelsie E Burgderfer, Kelsie E 11/02/24 15:51:39 11/02/24 15:51:39 11/02/24 15:51:39 Entry 4 Entry 5 Entry 6 Case Attendee Home Priest, Katy Eastman Role Performed Scrub - Primary TRAFFIC AGENT Motion Picture Set Grip Time In 11/02/24 14:07:00 11/02/24 14:07:00 11/02/24 14:07:00 Time Out 11/02/24 15:48:00 11/02/24 15:48:00 11/02/24 15:48:00 Procedure LUMBAR LAMINECTOMY LUMBAR LAMINECTOMY LUMBAR LAMINECTOMY POSS. FUSION(.) POSS. FUSION(.) POSS. FUSION(.) Comments Last Modified By: Renetta Melendez Kelsie E Burgderfer, Kelsie E 11/02/24 15:51:39 11/02/24 15:51:39 11/02/24 15:51:39 Entry 7 Entry 8 Case Attendee Jin Presley Ii, Robert David Role Performed Staff - Other Anesthesiologist Manual Winder Time In 11/02/24 14:07:00 11/02/24 14:53:00 Time Out 11/02/24 14:25:00 11/02/24 15:10:00 Procedure LUMBAR LAMINECTOMY LUMBAR LAMINECTOMY POSS. FUSION(.) POSS. FUSION(.) Comments POSITIONING HELP IS SUPERVISING AND BREAK RELIEF Last Modified By: Renetta Melendez Kelsie E 11/02/24 15:51:39 11/02/24 15:51:39 General Comments: ZELALEM CANNON, IN ATTENDANCE.AVERY CARTER. Perioperative Protocols FT Pre-Care Text: Implements protective measures prior to operative or invasive procedure, confirms identity before the operative or invasive procedure, verifies operative procedure, surgical site, and laterality Entry 1 Procedure(s) LUMBAR LAMINECTOMY Patient Identity Birthday, ID Band POSS. FUSION(.) Verified (select at Check, Patient least 2): Participation Consents / H and P Anesthesia Consent, Operative Site N/A Verified H&P, Surgery/Procedure Marking Verified Consent, Transfusion Consent Surgical Site Yes Laterality Verified n/a Verified Procedure Verified Yes Correct Patient Yes Position Verified Availability Equipment, Implant, Prep Dry Yes Verified (If Medication, X-ray Applicable) PreOp Antibiotic Yes Time Out Ani Berrios CRNA, Given Participants Ap PAUL, Shashi Barragan, Renetta Melendez, Home Priest, Christal Perez, Katy William Time Out Complete 11/02/24 14:35:00 Outcomes Met? Yes Last Modified By: Renetta Melendez 11/02/24 14:44:30 Post-Care Text: The patient is free from signs and symptoms of injury caused by extraneous objects Allergy Information FT Pre-Care Text: Verifies allergies Entry 1 Allergies Reviewed? Yes Allergies Reviewed Self/Patient With Outcomes Met? Yes Last Modified By: Renetta Melendez 11/02/24 14:36:08 Post-Care Text: The patient received appropriate medication(s) safely administered during the perioperative period Surgical Procedures FT Entry 1 Procedure Description Procedure LUMBAR LAMINECTOMY Modifiers . POSS. FUSION Surgeon Description MINI OPEN NAVIGATED LAMINECTOMY, FACETECTOMY, FORAMINOTOMY, L4-5 MICRODISSECTION, FLOUROSCOPY, PRE-OP STEREOTACTIC PLANNING, AUTOGRAFT, ARTHRODESIS, EXPLORATION SPINAL FUSION L5-S1 Primary Procedure Yes Primary Surgeon Shashi De Souza MD Start 11/02/24 14:37:00 Stop 11/02/24 15:41:00 Anesthesia Type General Surgical Service Neurology Wound Class 1 - Clean Last Modified By: Renetta Melendez 11/02/24 15:51:42 General Case Data FT Pre-Care Text: Classifies surgical wound, implements aseptic technique, initiates traffic control Entry 1 Case Information OR OR 7 FT Case Level Level 4 Wound Class 1 - Clean Specialty Neurology ASA Class 3 Preop Diagnosis M54.40 ( Lumbago with Postop Same As Preop Yes sciatica, unspecified side) Postop Diagnosis M54.40 ( Lumbago with Outcomes Met? Yes sciatica, unspecified side) Last Modified By: Renetta Melendez 11/02/24 14:37:05 Post-Care Text: (more content not included)... Normal [facility] Main OR PACU I Recordon 10-15 Main OR PACU I Record Main OR PACU I Rec ord PACU Phase I Document Type FT Summary Primary Physician: Shashi De Souza MD Finalized Date/Time: 11/02/24 16:45:46 Pt. Name: JACE CASSI DEVAN Mccormack./Sex: 1950 Female Med Rec #: [id number] Physician: Shashi De Souza MD Financial #: [id number] Pt. Type: A Room/Bed: [facility]/ Admit/Disch: 11/02/24 10:13:03 - Institution: Case Times PACU I FT Pre-Care Text: Identifies barriers to communication and implements measures to provide psychological support Develops individualized plan of care, and ensures continuity of care Maintains patient's dignity and privacy, and maintains patient confidentiality Identifies and reports philosophical, cultural, and spiritual beliefs and values Identifies individual values and wishes concerning care Implements aseptic technique, and administers prescribed antibiotic therapy and immunizing agents as ordered Evaluates postoperative tissue perfusion Implements thermoregulation measures, and monitors body temperature Evaluates postoperative respiratory status Evaluates postoperative cardiac status Evaluates postoperative neurological status Assesses pain control, collaborated in initiating patient-controlled analgesia and implements alternative methods of pain control Verifies allergies, administers prescribed medications and solutions, evaluates response to medications Entry 1 In PACU I 11/02/24 15:49:00 Discharge from PACU 11/02/24 16:24:00 I Outcomes Met? Yes Last Modified By: Josefina Tim RN 11/02/24 16:45:29 Post-Care Text: The patient demonstrates knowledge of the expected response to the operative or invasive procedure The patient's care is consistent with the individualized perioperative plan of care The patient's right to privacy is maintained The patient's value system, lifestyle, ethnicity, and culture are considered, respected, and incorporated into the perioperative plan of care The patient participates in decisions affecting his or her perioperative plan of care The patient is free from signs and symptoms of infection The patient has wound/tissue perfusion consistent with or improved from baseline levels established preoperatively The patient is at or returning to normothermia at the conclusion of the immediate postoperative period The patient's respiratory function is consistent with or improved from baseline levels established preoperatively The patient's cardiovascular status is consistent with or improved from baseline levels established preoperatively The patient's cardiovascular status is consistent with or improved from baseline levels established preoperatively The patient demonstrates and/or reports adequate pain control throughout the perioperative period The patient received appropriate medication(s), safely administered during the perioperative period Acuity Level PACU I FT Entry 1 Start Time 11/02/24 15:49:00 Stop Time 11/02/24 16:24:00 Acuity Level Acuity Level I Last Modified By: Josefina Tim RN 11/02/24 16:45:42 Finalized By: Josefina Tim RN Document Signatures Signed By: Josefina Tim RN 11/02/24 16:45 Normal [facility] Main OR Preoperative Recordo n 11-02-2024 Main OR Preoperative Record Main OR Preoperative Record PreOp Document Type FT Summary Primary Physician: Shashi De Souza MD Finalized Date/Time: 11/02/24 14:42:51 Pt. Name: JACECASSI/Sex: 1950 Female Med Rec #: [id number] Physician: Shashi De Souza MD Financial #: [id number] Pt. Type: A Room/Bed: [facility] Admit/Disch: 11/02/24 10:13:03 - Institution: Case Times PreOp FT Pre-Care Text: Verifies consent for planned procedure, identifies individual values and wishes concerning care, includes family members in perioperative teaching Entry 1 Patient Times. In Pre Surgery 11/02/24 10:15:00 Out Pre Surgery 11/02/24 14:05:00 Outcomes Met? Yes Last Modified By: Renetta Melendez 11/02/24 14:42:31 Post-Care Text: The patient participates in decisions affecting his or her perioperative plan of care Finalized By: Renetta Melendez Document Signatures Signed By: Renetta Melendez 11/02/24 14:42 Renetta Melendez 11/02/24 14:42 Normal [facility] Operative Reporton Operative Report Operative Report Patient: CASSI RODRIGEZ Age: 74 years Sex: Female : 1950 Associated Diagnoses: None Author: Shashi De Souza MD Postoperative Information Procedure: l4-5 facetectomy complete foraminotomy laminectomy arthrodesis autograft microdissection fluoroscopy preoperative stereotactic planning exploration spinal fusion l5-s1 Date/ Time: 11/02/2024 15:51:00 Preoperative Diagnosis: post laminectomy syndrome l5-s1, severe foraminal stenosis L4-5 radiculitis intractable. Postoperative Diagnosis: same. Performed by: Shashi De Souza MD. Prosthesis: none. . Estimated Blood Loss: 25 ml. Complications: None. Notes: Risks, benefits and alternatives to surgery were [...] which cannot be improved by further surgery. Benefit to include neurologic stabilization to that [...] interventional pain management, chiropractic, acupuncture, massage therapy. Operative procedure: Patient was brought to the operating room at [facility]. Timeout procedure performed. Patient was intubated by anesthesia service, monitoring lines were placed, preoperative antibiotics were given. Patient was placed in a prone position meticulous padding all pressure points to prevent pressure sores. I performed preoperative stereotactic planning and was placed on multiple axial sagittal coronal plane images on x-ray CT MRI. Patient prepped and draped in the usual sterile manner as well as operative microscope. Operative microdissection and microtechnique required and used throughout the case. Fluoroscopy was draped in its usual sterile manner multiple AP lateral fluoroscopy images used throughout the case with my real-time interpretation of those images. Local anesthesia was infiltrated and sharp skin incision was made. Subperiosteal dissection at the L4-5-S1 through the spinous process lamina and facets with placement of retractor. High-speed drill was used for laminectomy facetectomy foraminotomies wide destabilizing decompression complete facetectomy L4-5 with posterolateral arthrodesis with local autograft and decortication in the posterior lateral area. Exploration spinal fusion 2 interbody cages L5-S1 intact fusion no further surgery required at this level. Full decompression of the thecal sac and nerve roots was performed L4-5 including right exiting nerve root under severe preoperative foraminal compression. Copious antibiotic irrigation applied and meticulous hemostasis was achieved. All sponge needle instrument counts were correct multiple times. Multilayer closure was performed and sterile dressing was applied. Patient was extubated and transferred to recovery room in stable condition. This note was created using voice recognition software and was not corrected for typographical or grammatical errors and may have unintended errors. Anesthesia type: General. Normal [facility] Comment on above: Result Comment: Elec tronically Signed By: Shashi De Souza MD\.br\Date and Time Signed: 11/02/24 15:54 EST Outpatient Surgery Discharge Instructionon 11-02-2024 Outpatient Surgery Discharge Instruction Outpatient Surgery Discharge Instruction [place] [id number] Patient Discharge Instructions PERSON INFORMATION Name: CASSI RODRIGEZ Date of : 1950 Current Date: 11/02/2024 16:04:08 PHYSICIANS Admitting Physician: Shashi De Souza MD Discharge Diagnosis: CASSI RODRIGEZ has been given the following list of follow-up instructions, prescriptions, and patient education materials: IF UNABLE TO CONTACT YOUR PHYSICIAN AND YOU FEEL IT IS AN EMERGENCY, GO TO THE NEAREST EMERGENCY ROOM OR CALL 911 JACE Montilla CAROL JEAN, have received the attached patient education materials/instructions and have verbalized understanding: May we do a follow up call? Yes No I was present when discharge instructions were given ____ Patient Signature _ Date Clinican/Nurse Signature Date Follow up: With: Address: When: Shashi De Souza [address], [address] [place] [address] [phone] Business (1) Comments: [id number] ok shower and remove dressing [id number] no lift>5lbs keep incis dry clean. restart coumadin 3 days after surgery. 11-05-24Wednesday. Pharmacy Information: You may receive a survey from [facility]ruff asking you to rate your care experience. Your feedback is important and will help us understand what we do well and how we can improve the quality of care we provide to you, your loved ones and our community. It???s an honor to serve you. Thank you for choosing [facility] HERE ARE THE MEDICATION CHANGES THAT OCCURRED DURING YOUR HOSPITAL STAY New Medications [id number], [address], [place] [id number], [phone] acetaminophen-oxycodone (Percocet 5 mg-325 mg oral tablet) 1 Tablets By Mouth 3 times a day as needed Pain 4-7 for 7 Days. Refills: 0. Medications to Continue with No Changes Other Medications acetaminophen (Tylenol) 500 Milligram By Mouth every 6 hours as needed as needed for pain. amitriptyline (amitriptyline 50 mg Tab) 1 Tablets By Mouth once a day (at bedtime). amlodipine 5 Milligram By Mouth every day. carvedilol 12.5 Milligram By Mouth 2 times a day. enoxaparin (enoxaparin 100 mg/mL SubQ Gloria) 100 Milligram Subcutaneous every 12 hours. Bridging with Warfarin for surgery. ergocalciferol (Vitamin D) 50,000 International unit By Mouth every week. ferrous sulfate 325 Milligram By Mouth every other day. levetiracetam 750 Milligram By Mouth 2 times a day. losartan (losartan 25 mg Tab) 1 Tablets By Mouth every day. omeprazole (Prilosec) 40 Milligram By Mouth every day. venlafaxine 150 Milligram By Mouth every day. zonisamide (Zonegran) 300 Milligram By Mouth once a day (at bedtime)., unsure of dosage- takes 3 tablets No Longer Take the Following Medications warfarin 4 Milligram By Mouth every day. takes on saturdays. warfarin 2.5 Milligram By Mouth every day. takes 6 days of the week. PATIENT EDUCATION INFORMATION Instructions: Medication Leaflets: Normal [facility] PT & PTTon 11-02-2024 aPTT Coag (PPP) [Time] 43.4 second(s) High 25.1-36.5 [facility] Comment on above: Result Comment: Para meter 15 days - 4 weeks 1 - 5 months 6 - 11 months 1 - 5 years 6 - 10 years 11 - 17 years PTT Mean: 35.4 (27.6-45.6) Mean: 33.5 (24.8-40.7) Mean: 32.4 (25.1-40.7) Mean: 31.6 (24.0-39.2) Mean: 31.6 (26.9-38.7) Mean: 31.0 (24.6-38.4) Pediatric Reference ranges were obtained from a study by yudy Yuan. prepared from 1437 samples obtained at 7 different centers using the same coagulation reagent and instrumentation [place] [facility] Currently there are no coagulation studies available worldwide for children to 14 days, and no normal ranges. Heparin therapeutic range (represented by Anti-Factor Xa activity of 0.2 - 0.4 U/mL) corresponds to PTT of 56.6 - 109.0 sec. Performed By: #### 1 [id number] #### [facility] [address] [place] [address] INR Coag (PPP) [Relative time] 1.26 {INR} Invalid Interpretation Code [facility] Comment on above: Result Comment: INR results are specifically intended to assess patients stabilized on long-term Anticoagulation therapy suggested INR???s ???Less Intensive Anticoagulation??? 2.0 ??? 3.0 Conventional Range 3.0 ??? 4.5 Performed By: #### 1 [id number] #### [facility] [address] [place] [address] PT Coag (PPP) [Time] 14.1 second(s) High 9.4-12.5 [facility] Comment on above: Result Comment: 15 d ays - 4 weeks 1 - 5 months 6 -11 months 1 ??? 5 years 6 ??? 10 years 11 -17 years Mean: 11.2 (9.5 ??? 12.6) Mean: 11.0 (9.7 ??? 12.8) Mean: 11.0 (9.8 ??? 13.0) Mean: 11.3 (9.9 ??? 13.4) Mean: 11.7 (10.0 ??? 14.6) Mean: 11.8 (10.0 - 14.1) Pediatric Reference ranges were obtained from a study by yudy Yuan. prepared from 1437 samples obtained at 7 different centers using the same coagulation reagent and instrumentation as [facility] Currently there are no coagulation studies available worldwide for children to 14 days, and no normal ranges. Performed By: #### 1 [id number] #### [facility] [address] [place] [address] Patient Education - Texton 1 01-03-2024 Patient Education - Text Patient Education - Text Normal [facility] ABO/Rh Retypeon 10-25-2024 ABO/Rh Retype Interp Positive Invalid Interpretation Code [facility] Comment on above: Performed By: #### 1 [id number] #### [facility] [address] [place] [address] BMPon 10-25-2024 Anion gap [Moles/Vol] 11 mmol/L Normal 6-16 [facility] Comment on above: Performed By: #### 2 [id number] #### [facility] [address] [place] [address] Calcium [Mass/Vol] 8.7 mg/dL Low 8.9-11.1 [facility] Comment on above: Performed By: #### 2 [id number] #### [facility] [address] [place] [address] Chloride [Moles/Vol] 109 mmol/L Normal 101-111 [facility] Comment on above: Performed By: #### 2 [id number] #### [facility] [address] [place] [address] CO2 [Moles/Vol] 25 mmol/L Normal 21-31 [facility] Comment on above: Performed By: #### 2 [id number] #### [facility] [address] [place] [address] Creatinine [Mass/Vol] 1.7 mg/dL High 0.5-1.3 [facility] Comment on above: Performed By: #### 2 [id number] #### [facility] [address] [place] [address] Glucose [Mass/Vol] 104 mg/dL Normal 55-199 [facility] Comment on above: Performed By: #### 2 [id number] #### [facility] [address] [place] [address] Potassium [Moles/Vol] 4.8 mmol/L Normal 3.5-5.3 [facility] Comment on above: Performed By: #### 2 [id number] #### [facility] [address] [place] [address] Sodium [Moles/Vol] 140 mmol/L Normal 135-145 [facility] Comment on above: Performed By: #### 2 [id number] #### [facility] [address] [place] [address] Urea nitrogen [Mass/Vol] 22 mg/dL High 5-21 [facility] Comment on above: Performed By: #### 2 [id number] #### [facility] [address] [place] [address] Urea nitrogen/Creatinine [Mass ratio] 13 No Units Normal 10-20 [facility] Comment on above: Performed By: #### 2 [id number] #### [facility] [address] [place] [address] CBC w/ Auto Diffon 4 Basophils/100 WBC (Bld) 0.6 % Normal 0.0-2.0 [facility] Comment on above: Performed By: #### 2 [id number] #### [facility] [address] [place] [address] Basophils/Leukocytes Auto (Bld) [Pure # fraction] 0.0 E9/L Normal 0.0-0.2 [facility] Comment on above: Performed By: #### 2 [id number] #### [facility] [address] [place] [address] Eosinophils (Bld) [#/Vol] 0.3 E9/L Normal 0.0-0.5 [facility] Comment on above: Performed By: #### 2 [id number] #### [facility] [address] [place] [address] Eosinophils/100 WBC (Bld) 6.0 % Normal 0.0-8.0 [facility] Comment on above: Performed By: #### 2 [id number] #### [facility] [address] [place] [address] Erythrocyte distribution width (RBC) [Ratio] 14.1 % Normal 10.9-14.2 [facility] Comment on above: Performed By: #### 2 [id number] #### [facility] [address] [place] [address] Hematocrit (Bld) [Volume fraction] 36.8 % Normal 34.0-46.0 [facility] Comment on above: Performed By: #### 2 [id number] #### [facility] [address] [place] [address] Hemoglobin (Bld) [Mass/Vol] 12.4 g/dL Normal 12.0-16.0 [facility] Comment on above: Performed By: #### 2 [id number] #### [facility] [address] [place] [address] Lymphocytes (Bld) [#/Vol] 0.7 E9/L Low 1.0-4.0 [facility] Comment on above: Performed By: #### 2 [id number] #### [facility] [address] [place] [address] Lymphocytes/100 WBC (Bld) 15.2 % Normal 14.0-50.0 [facility] Comment on above: Performed By: #### 2 [id number] #### [facility] [address] [place] [address] MCH (RBC) [Entitic mass] 31.4 pg Normal 27.0-34.0 [facility] Comment on above: Performed By: #### 2 [id number] #### [facility] [address] [place] [address] MCHC (RBC) [Mass/Vol] 33.8 g/dL Normal 31.4-36.0 [facility] Comment on above: Performed By: #### 2 [id number] #### [facility] [address] [place] [address] MCV (RBC) [Entitic vol] 93.0 fL Normal 80.0-100.0 [facility] Comment on above: Performed By: #### 2 [id number] #### [facility] [address] [place] [address] Monocytes (Bld) [#/Vol] 0.3 E9/L Normal 0.2-1.0 [facility] Comment on above: Performed By: #### 2 [id number] #### [facility] [address] [place] [address] Neutrophils (Bld) [#/Vol] 3.4 E9/L Normal 2.0-7.5 [facility] Comment on above: Performed By: #### 2 [id number] #### [facility] [address] [place] [address] Neutrophils/100 WBC (Bld) 71.7 % Normal 36.0-75.0 [facility] Comment on above: Performed By: #### 2 [id number] #### [facility] [address] [place] [address] Platelet 228.0 E9/L Normal 150.0-500. 0 [facility] Comment on above: Performed By: #### 2 [id number] #### [facility] [address] [place] [address] Platelet mean volume (Bld) [Entitic vol] 7.4 fL Normal 6.4-10.8 [facility] Comment on above: Performed By: #### 2 [id number] #### [facility] [address] [place] [address] RBC (Bld) [#/Vol] 4.0 E12/L Low 4.3-5.9 [facility] Comment on above: Performed By: #### 2 [id number] #### [facility] [address] [place] [address] WBC corrected for nucl RBC Auto (Bld) [#/Vol] 4.7 E9/L Normal 4.0-11.0 [facility] Comment on above: Performed By: #### 2 [id number] #### [facility] [address] [place] [address] CT Spine Lumbar w/o Contrast on 10-25-2024 CT Spine Lumbar w/o Contrast Exam Date/Time: 10/23/2024 16:44 EST Reason for Exam: M54.40 Lumbago with sciatica, unspecified side Report IMPRESSION: DIFFUSE DEGENERATIVE CHANGE LUMBAR SPINE WITH NEURAL FORAMINAL, RIGHT L5-S1. LAMINECTOMY, L4 AND L5. OTHER FINDINGS DISCUSSED. CT LUMBAR SPINE WITHOUT INTRAVENOUS CONTRAST MEDIUM. HISTORY: WORSENING LOW BACK PAIN. M54.40 LUMBAGO WITH SCIATICA, UNSPECIFIED SIDE TECHNICAL FACTORS: CT lumbar spine obtained and formatted as 2.5 mm contiguous axial images from skull base to the level of. Sagittal and coronal reconstructions were obtained during postprocessing. No contrast medium was utilized. COMPARISON: None FINDINGS: Lumbar vertebral bodies are normal in height and alignment. Diffuse disc space narrowing L1-L2 and L2-L3, with posterior narrowing L3-L4 and L4-L5. Intervertebral disc space device L5-S1. Laminectomy, L4 and L5. Neural foraminal stenosis right L5-S1. No fractures, dislocations, bone lesions. Limited imaging of the chest, abdomen, and pelvis shows small left pleural effusion. Pacemaker wires. Cholecystectomy. Diffuse cortical thinning, hypoplastic right kidney. Inferior vena cava filter. All CT scans at this facility use dose modulation, iterative reconstruction, and/or weight based dosing when appropriate to reduce radiation dose to as low as reasonably achievable. Ordering Provider: Shashi De Souza FINAL REPORT Dictated: 10/25/2024 1:53 pm Broderick Sunshine MD Signed (Electronic Signature): 10/25/2024 1:53 pm Signed by: Broderick Sunshine MD Transcribed by: CLINT[place] Technologist: COCO Normal [facility] Function Assayon 024 Platelet function (closure time) collagen+EPINEPHrine induced (Bld) [Time] 78 second(s) Normal 70-138 [facility] Comment on above: Result Comment: Norm al ASA vWD Glanzmann???s Thrombasthenia ------- ------ ------- COL/EPI Normal Abnormal Abnormal Abnormal Col/ADP Normal Normal Abnormal Abnormal Performed By: #### 1 [id number] #### [facility] [address] with Cult Rflxon 10-25-20 24 Bilirubin Ql (U) Negative Normal Negative [facility] Comment on above: Performed By: #### 4 [id number] #### [facility] [address] [place] [address] Clarity (U) Clear Normal Clear [facility] Comment on above: Performed By: #### 4 [id number] #### [facility] [address] [place] [address] Color (U) Light-Yellow Normal Yellow [facility] Comment on above: Result Comment: Micr oscopic readings are only performed on those samples that meet specific criteria set forth by [facility]. Performed By: #### 4 [id number] #### [facility] [address] [place] [address] Glucose Ql (U) Negative Normal Negative [facility] Comment on above: Performed By: #### 4 [id number] #### [facility] [address] [place] [address] Hemoglobin Auto test strip (U) [Mass/Vol] Negative Normal Negative [facility] Comment on above: Performed By: #### 4 [id number] #### [facility] [address] [place] [address] Ketones Auto test strip Ql (U) Negative Normal Negative [facility] Comment on above: Performed By: #### 4 [id number] #### [facility] [address] [place] [address] Leukocyte esterase Auto test strip Ql (U) Negative Normal Negative [facility] Comment on above: Performed By: #### 4 [id number] #### [facility] [address] [place] [address] Nitrite Auto test strip Ql (U) Negative Normal Negative [facility] Comment on above: Performed By: #### 4 [id number] #### [facility] [address] [place] [address] pH (U) 5.5 [pH] Invalid Interpretation Code 5.0-9.0 [facility] Comment on above: Performed By: #### 4 [id number] #### [facility] [address] [place] [address] Protein Ql (U) Negative Normal Negative [facility] Comment on above: Performed By: #### 4 [id number] #### [facility] [address] [place] [address] Specific gravity (U) [Rel density] 1.018 Invalid Interpretation Code 1.005-1.03 0 [facility] Comment on above: Performed By: #### 4 [id number] #### [facility] [address] [place] [address] Urobilinogen (U) [Mass/Vol] Negative Normal Negative [facility] Comment on above: Performed By: #### 4 [id number] #### [facility] [address] [place] [address] Type of Urine collection method Clean Catch Normal [facility] Comment on above: Performed By: #### 4 [id number] #### [facility] [address] [place] [address] XR Chest 2 Viewson XR Chest 2 Views Exam Date/Time: 10/25/2024 11:53 EST Reason for Exam: P.A.T. Report IMPRESSION: NO RADIOGRAPHIC EVIDENCE OF ACTIVE DISEASE IN THE CHEST. CLINICAL INFORMATION: P.A.T. COMPARISON: None available. FINDINGS: 2 views. Pacemaker overlies right mid chest with pacemaker lead tips in region of right atrium and right ventricle. Remote internal fixation lower cervical spine. Postsurgical change left humeral head. Cardiac pericardial silhouette normal. Pulmonary vasculature normal. Lungs clear. Ordering Provider: Shashi De Souza FINAL REPORT Dictated: 10/25/2024 3:05 pm Broderick Sunshine MD Signed (Electronic Signature): 10/25/2024 3:05 pm Signed by: Broderick Sunshine MD Transcribed by: CLINTON Technologist: CHANTALE Technical Comments Radiation Dose: Ka,r in mGy = . DAP = . 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 CASSI RODRIGEZ : 1950 Age: 74 years Gender: F History of arrhythmia. Previous cardiovascular interventions: Other pacemaker implant (05-22-2015) Primary rhythm: A. Paced. Height: 157.48 cm BSA: 1.96 m Weight: 88.00 kg BMI: 35.5 kg/m Heart rate 94 bpm Blood pressure 148/76 mmHg Color Doppler was utilized to interrogate the cardiac valves assessed and spectral Doppler was utilized to determine the flow velocities and pressure gradients reported in this exam. Myocardial strain analysis was performed in this exam to aid in the assessment of cardiac function. MEASUREMENTS: Value Indexed Normal Max aortic dimension 3.3 cm Ao < 3.8 Left atrial volume 48 ml (biplane A-L) 25 ml/m Bette <= 34 LV ID (diastole) 4.1 cm (2D) 2.09 cm/m LV ID (systole) 3.0 cm (2D) 1.53 cm/m IVS, leaflet tips 1.2 cm (2D) Posterior wall thickness 1.2 cm (2D) Left ventricular mass 172 g (2D) 88 g/m Global peak long strain -15.8 % LV stroke volume 45 ml (2D biplane) LV end diastolic volume 79 ml (2D biplane) 40.2 ml/m 29<=EDVi<62 LV end systolic volume 34 ml (2D biplane) 17.2 ml/m Ejection Fraction 57 % (2D biplane) EF > 54 FINDINGS: LEFT VENTRICLE The left ventricle is normal in size. There is mild concentric left ventricular hypertrophy. Left ventricular systolic function is normal. Global LV myocardial strain is borderline abnormal. Grade I left ventricular diastolic dysfunction. Mitral annular lateral E/e': 9.9. Mitral annular septal E/e': 10.7. Wall Motion: All scored segments are normal. RIGHT VENTRICLE The right ventricle is normal in size. Pacer wires are noted in the right ventricle. Right ventricular systolic function is normal. RV systolic tissue Doppler velocity is 13.8 cm/s. Tricuspid annular displacement is 2.3 cm. Estimated right ventricular systolic pressure is likely underestimated due to a weak or incomplete tricuspid regurgitation signal and is, at least, 26 mmHg consistent with normal pulmonary artery pressures. Estimated right atrial pressure is 3 mmHg based on IVC assessment. LEFT ATRIUM The left atrial cavity is normal in size. Pulmonary Veins: The pulmonary venous pattern showed normal systolic flow. RIGHT ATRIUM The right atrial cavity is normal in size. Pacer wires are noted in the right atrium. Inferior Vena Cava: The inferior vena cava appears normal measuring 1.4 cm. The vessel decreases greater than 50 percent with inspiration. MITRAL VALVE There is mild mitral annular calcification observed posterior. There is trace mitral valve regurgitation. There is mild thickening. The peak mitral E/A ratio is 0.61. The average mitral E/e' ratio is 10.3. TRICUSPID VALVE There is mild (1+) tricuspid valve regurgitation. There is no thickening. The hepatic venous pattern showed normal systolic flow. AORTIC VALVE There is trace (trace - 1+) aortic valve regurgitation. Tricuspid aortic valve. There is mild thickening. The peak gradient is 10 mmHg (peak velocity = 157.0 cm/s). The LVOT mean velocity is 66.6 cm/s. PULMONIC VALVE There is trace pulmonic valve regurgitation. There is no thickening. AORTA The visualized aorta is normal in size. Measurements - Sinus: 3.3 cm. Mid ascending aorta 3.0 cm. Mid arch 2.7 cm. Distal descending diaphragmatic level 2.2 cm. PULMONARY ARTERIES The pulmonary arteries are unseen or not interrogated. INTERATRIAL SEPTUM There is no evidence of intracardiac shunting as detected by Doppler. INTERVENTRICULAR SEPTUM There is abnormal motion of the interventricular septum secondary to a pacemaker. PERICARDIUM There is no pericardial effusion. There is an epicardial fat pad. 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 There is mild concentric left ventricular hypertrophy. Left ventricular systolic function is normal. EF = 57 5% (2D biplane) Grade I left ventricular diastolic dysfunction. - The right ventricle is normal in size. Right ventricular systolic function is normal. - Exam was compared with the prior echocardiographic exam performed on 09/15/2016. No significant change. * * * Final * * * [employer] Image : [id number] Normal [facility] CNOVon 09-05-2024 CNOV Office Visit (NEAD[facility] ) -- CASSI RODRIGEZ ([id number]) 1950 F Date Time Provider Department 09/05/24 1:30 PM RANDA REILLY [facility] During your visit today, we recorded the following information about you: Pulse Blood pressure Weight Height 84/minute 133/78 89.1 kg 1.575 m Davina Brennan RN 09/05/2024 1:21 PM Signed Patient name and confirmed. Patient states she would like to receive Botox treatment today. 2 vials of Botox A (100 units in each) reconstituted with 2.2 cc of normal saline in each vial. Botox drawn up into four, 1 cc syringes. Each syringe containing 50 units of Botox. Assisted by: Lon Jewell RN Botox, 2 vials: Lot # [id number] Exp 10/2026 Lot # [id number] Exp 10/[address] Reilly to administer and verified order. Randa Reilly MD 09/05/2024 1:54 PM Signed PROGRESS NOTE- HEADACHE MEDICINE SERVICE DATE: September 05, 2024 Location: [facility] Participants: patient, and provider HPI: Here for follow up and Botox therapy. This is her second. After the first one she says she had less severe migraines although still daily. No side effects. Her neck pain is also daily. S/p [...] days a month Frequency: daily for 3-4 decades. exacerbations 15 days a month. Duration of attacks: constant Prior Treatments for migraine: Cymbalta Propranolol ( for high BP, stopped due to low HR) Amitriptyline Topamax Fiorecet Tizanidine Amlodipine Keppra Zonisamide Zoloft Depakote Verapamil Benazepril Botox injections. Helped(Still daily headaches but less severe episodes). But insurance stopped paying for it. Imagin10/15/2016 CT head: no acute changes 2014 [...] Reactions Lyrica [Pregabalin] Rash Dexamethasone Rash BP 133/78 Pulse 84 Ht 157.5 cm (5' 2 ) Wt 89.1 kg (196 lb 6.9 oz) BMI 35.93 kg/m? ASSESSMENT: - 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 aura - chronic cervicalgia - CKD RECOMMENDATIONS: 1. Preventive therapy: -continue Botox. See attached procedure note 2.Referral to spine medicine 3.Referral to sleep medicine Randa Reilly MD [facility] Randa Reilly MD 09/05/2024 1:54 PM Signed BOTOX PROCEDURE NOTE UNIVERSAL PROTOCOL / SAFETY CHECKLIST Procedure to be performed: Randa Reilly MD Sign in Communication: Completed Time Out: Team Confirms the Correct Patient, Correct Procedure, Correct Site and Site Marking, Correct Position (if applicable), Prep and Dry Time (if applicable). 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 Normal [facility] ECG COMPLETEon 09-01-2024 Atrial Rate 81 BPM [facility] Calculated P Cunningham 74 degrees [facility] Calculated R Cunningham 73 degrees [facility] Calculated T Cunningham 67 degrees [facility] P-R Interval 186 ms [facility] QRS Duration 80 ms [facility] QT Interval 386 ms [facility] QTC Calculation (Bazett) 448 ms [facility] Ventricular Rate 81 BPM [facility] ATRIAL-PACED RHYTHM LOW VOLTAGE QRS, CONSIDER PULMONARY DISEASE, PERICARDIAL EFFUSION, OR NORMAL VARIANT ABNORMAL ECG Confirmed by JONATHAN TELLEZ MD ([id number]) on 09/01/2024 1:53:38 PM [facility]ULAR NEPHI NAME : CASSI RODRIGEZ PID : [id number] : 1950 Gender : Female Race : ORD : Procedure Date : Aug 31 2024 09:57:03 Edit Date : Sep 01 2024 13:53:42 Diagnosis: ATRIAL-PACED RHYTHM LOW VOLTAGE QRS, CONSIDER PULMONARY DISEASE, PERICARDIAL EFFUSION, OR NORMAL VARIANT ABNORMAL ECG Confirmed by JONATHAN TELLEZ MD ([id number]) on 09/01/2024 1:53:38 PM Test Reason : Location : 192 : AVCRD Overread By : JONATHAN TELLEZ MD Edited By : JONATHAN TELLEZ MD Referred By : , Acquired by : , [facility] CNOVon 08-31-2024 CNOV Office Visit (CAEPAV ) -- CASSI RODRIGEZ Nery ([id number]) 1950 F Date Time Provider Department 08/31/24 10:00 AM KITTY VALENTE During your visit today, we recorded the following information about you: Pulse Blood pressure Weight Height 81/minute 134/72 88 kg 1.575 m Kitty Valente MD 09/02/2024 12:42 AM Signed [facility] [place] [facility] Department of Cardiovascular Medicine SECTION OF CARDIAC PACING and ELECTROPHYSIOLOGY OUTPATIENT VISIT DATE NASRIN July 23, 2022 August 31, 2024 OUTPATIENT VISIT TYPE ESTABLISHED PRIMARY CARE PHYSICIAN: Broderick Howard MD ([facility]) [address] [place] [address] CHIEF COMPLAINT: Pacemaker management HISTORY OF PRESENT ILLNESS: Ms. Rodrigez is a 74 year old female who presents today for follow-up visit. No specific complaints. Reports she is largely inactive, due to chronic back pain. She underwent surgery for this in the spring, but is planned for another intervention soon. She denies chest pain, shortness of breath, [...] Never Smokeless tobacco: Never Vaping Use Vaping status: Never Used Substance Use Topics Alcohol use: No Drug use: No FAMILY HISTORY Problem Relation Age of Onset other (Liver Ca[other]) Father Breast Cancer Sister No Ocular Disease Other ALLERGIES: ALLERGIES Allergen Reactions Lyrica [Pregabalin] Rash Dexamethasone Rash MEDICATIONS: zonisamide (ZONEGRAN) 100 mg capsule Take 3 [...] Negative for: Weakness, Paralysis, Numbness, Tingling, Tremor, Nervousness, Depressed mood, Memory loss SKIN: Negative for: Rashes, Itching HEMATOLOGICAL/LYMPHATIC: Negative for: Easy bruising , Easy bleeding ENDOCRINE: Negative for: Heat or cold intolerance, Excessive sweating, Frequent urination, Frequent thirst PHYSICAL EXAMINATION: BP 134/72 Pulse 81 Ht 157.5 cm (5' 2 ) Wt 88 kg (194 lb 0.1 oz) BMI 35.48 kg/m? General: Well appearing, in no acute distress. Skin: No clubbing, no cyanosis. Eyes: Extra ocular movements intact Oropharynx: Teeth in good repair. Neck: No jugular venous distention, no carotid bruits, carotids have a normal upstroke, no palpable thyromegaly. Lungs: Clear to auscultation bilaterally, no wheezing [...] cooperative, gait coordinated. CARDIOVASCULAR MEDICINE TESTING: Electrocardiogram Atrial paced rhythm DUAL CHAMBER PACEMAKER REMOTE EVALUATION: PRESENTING EGM: AP/VS BATTERY STATUS: Estimated time remaining to CASSI is 2 years COUNTERS SINCE: 12/08/23 ATRIAL ARRHYTHMIAS: none VENTRICULAR ARRHYTHMIAS: There were no ventricular detections. LEAD MEASUREMENTS: Sensing is appropriate. Review of (more content not included)... Normal [facility] [id number] 08-31-2024 ECG01 Ventricular Rate : 8 1 BPM Atrial Rate : 81 BPM P-R Interval : 186 ms QRS Duration : 80 ms Q-T Interval : 386 ms QTC Calculation(Bazett) : 448 ms Calculated P Cunningham : 74 degrees Calculated R Cunningham : 73 degrees Calculated T Cunningham : 67 degrees ATRIAL-PACED RHYTHM LOW VOLTAGE QRS, CONSIDER PULMONARY DISEASE, PERICARDIAL EFFUSION, OR NORMAL VARIANT ABNORMAL ECG Confirmed by JONATHAN TELLEZ MD ([id number]) on 09/01/2024 1:53:38 PM NAME : CASSI RODRIGEZ PID : [id number] : 1950 Gender : Female Race : ORD : Procedure Date : Aug 31 2024 09:57:03 Edit Date : Sep 01 2024 13:53:42 Diagnosis: ATRIAL-PACED RHYTHM LOW VOLTAGE QRS, CONSIDER PULMONARY DISEASE, PERICARDIAL EFFUSION, OR NORMAL VARIANT ABNORMAL ECG Confirmed by JONATHAN TELLEZ MD ([id number]) on 09/01/2024 1:53:38 PM Test Reason : Location : 192 : AVCRD Overread By : JONATHAN TELLEZ MD Edited By : JONATHAN TELLEZ MD Referred By : , Acquired by : , Normal [facility] Erythrocyte distribution wid th Auto (RBC) [Ratio]on 08-28-2024 Erythrocyte distribution width (RBC) [Ratio] 13.0 % 11.0-15.0 [facility] Erythrocyte distribution width (RBC) [Ratio] Erythrocyte distribution width [Ratio] by Automated count 11.0-15.0 [facility] Estimated glomerular filtrat ion rate (GFR) non- Americanon 08-28-2024 GFR/1.73 sq M.predicted among non-blacks MDRD (S/P/Bld) [Vol rate/Area] 26 mL/min/{1.73_m2} Low >=60 mL/min/1.7 3m 2 [facility] GFR/1.73 sq M.predicted among non-blacks MDRD (S/P/Bld) [Vol rate/Area] Estimated glomerular filtration rate (GFR) non- Low >=60 mL/min/1.7 3m 2 [facility] Hematocrit Auto (Bld) [Volum e fraction]on 08-28-2024 Hematocrit (Bld) [Volume fraction] 37.4 % 36.0-48.0 [facility] Hematocrit (Bld) [Volume fraction] Hematocrit [Volume Fraction] of Blood by Automated count 36.0-48.0 [facility] Hemoglobin [Mass/volume] in Bloodon 08-28-2024 Hemoglobin (Bld) [Mass/Vol] 11.8 g/dL Low 12.0-16.0 [facility] Hemoglobin (Bld) [Mass/Vol] Hemoglobin [Mass/volume] in Blood Low 12.0-16.0 [facility] Iron binding capacity [Mass/ volume] in Serum or Plasmaon 08-28-2024 Iron binding capacity [Mass/Vol] 356.0 ug/dL 250.0-450. 0 [facility] Iron binding capacity [Mass/Vol] Iron binding capacity [Mass/volume] in Serum or Plasma 250.0-450. 0 [facility] Iron saturation [Mass Fracti on] in Serum or Plasmaon 08-28-2024 Iron saturation [Mass fraction] 14.3 % [facility] Iron saturation [Mass fraction] Iron saturation [Mass Fraction] in Serum or Plasma [facility] Laboratory - Chemistry and C hemistry - challengeon 08-28-2024 Albumin [Mass/Vol] 3.3 g/dL Low 3.4-5.0 [facility] Calcium [Mass/Vol] 8.6 mg/dL 8.5-10.1 [facility] Chloride [Moles/Vol] 108 mmol/L High 98-107 [facility] CO2 [Moles/Vol] 21.8 mmol/L 21.0-32.0 [facility] Creatinine [Mass/Vol] 1.91 mg/dL High 0.55-1.02 [facility] Ferritin [Mass/Vol] 15.0 ng/mL 8.0-252.0 [facility] GFR/1.73 sq M.predicted MDRD (S/P/Bld) [Vol rate/Area] 31 mL/min/{1.73_m2} Low >=60 mL/min/1.7 3m 2 [facility] Glucose [Mass/Vol] 135 mg/dL High 74-106 [facility] Iron [Mass/Vol] 51.0 ug/dL 50.0-170.0 [facility] Magnesium [Mass/Vol] 2.0 mg/dL 1.8-2.4 [facility] Potassium [Moles/Vol] 4.0 mmol/L 3.5-5.1 [facility] Sodium [Moles/Vol] 142 mmol/L 136-145 [facility] Urate [Mass/Vol] 5.0 mg/dL 2.6-6.0 [facility] Urea nitrogen [Mass/Vol] 24.0 mg/dL High 7.0-18.0 [facility] Urea nitrogen/Creatinine [Mass ratio] 12.6 mg/mg [facility] Bilirubin Ql (U) Negative NEGATIVE [facility] Glucose (U) [Mass/Vol] Negative NEGATIVE Fi [facility] Ketones Ql (U) Negative NEGATIVE [facility] pH (U) 5.5 [pH] 5.0-9.0 [facility] Specific gravity (U) [Rel density] 1.025 1.005-1.02 5 [facility] Urobilinogen Qn (U) 0.2 {Lin'U}/dL 0.2-1.0 [facility] Laboratory - Specimen inform ationon 08-28-2024 Appearance (U) CLEAR CLEAR [facility] Color (U) YELLOW YELLOW [facility] Laboratory - Urinalysison Leukocyte esterase Test strip Ql (U) Negative NEGATIVE [facility] Mucus Ql (Urine sed) NONE SEEN NONE SEEN [facility] Nitrite Ql (U) Negative NEGATIVE [facility] Protein (U) [Mass/Vol] 16.2 mg/dL High <=11.9 [facility] Protein Ql (U) Negative NEG/TRACE [facility] Leukocytes [#/volume] correc tanesha for nucleated erythrocytes in Blood by Automated counon 08-28-2024 WBC corrected for nucl RBC Auto (Bld) [#/Vol] 5.2 10 3/uL 4.0-11.0 [facility] WBC corrected for nucl RBC Auto (Bld) [#/Vol] Leukocytes [#/volume] corrected for nucleated erythrocytes in Blood by Automated coun 4.0-11.0 [facility] MCH Auto (RBC) [Entitic mass ]on 08-28-2024 MCH (RBC) [Entitic mass] 31.1 pg 26.7-34.0 [facility] MCH (RBC) [Entitic mass] MCH [Entitic mass] by Automated count 26.7-34.0 [facility] MCHC Auto (RBC) [Mass/Vol]on 08-28-2024 MCHC (RBC) [Mass/Vol] 31.6 g/dL 29.9-35.2 [facility] MCHC (RBC) [Mass/Vol] MCHC [Mass/volume] by Automated count 29.9-35.2 [facility] MCV Auto (RBC) [Entitic vol] on 08-28-2024 MCV (RBC) [Entitic vol] 98.4 fL 81.0-99.0 [facility] MCV (RBC) [Entitic vol] MCV [Entitic vol ume] by Automated count 81.0-99.0 [facility] No Panel Informationon 08-28 25-Hydroxy Vitamin D Total 22.3 ng/mL [facility] Comment on above: <20 ng/mL Vit D defi cient20-<30 ng/mL Vit D floeyfdzyylv85-535 ng/mL Vit D sufficient>100 ng/mL Potential Toxicity Parathyroid Hormone (Intact) 194 pg/mL Abnormal 15 [facility] Comment on above: Performed at: [place] [id number] Director: Junaid Sawyer PhD, Phone: [phone] Phosphorus Level 3.0 mg/dL 2.6-4.7 [facility] Urine Bacteria NONE SEEN #/HPF NONE SEEN [facility] Urine Occult Blood Negative NEGATIVE [facility] Urine Other Casts NONE SEEN #/LPF NONE SEEN [facility] Urine Other Crystals None Seen #/HPF None Seen [facility] Urine Random Creatinine 137.09 mg/dL 20.0 0-300. 00 [facility] Urine RBC NONE SEEN #/HPF 0-2 [facility] Urine Squamous Epithelial Cells RARE #/LPF NONE/RARE [facility] Urine WBC 0-2 #/HPF Abnormal NONE SEEN [facility] Platelet mean volume Auto (B ld) [Entitic vol]on 08-28-2024 Platelet mean volume (Bld) [Entitic vol] 9.5 fL 9.5-13.5 [facility] Platelet mean volume (Bld) [Entitic vol] Platelet mean volume [Entitic volume] in Blood by Automated count 9.5-13.5 [facility] Platelets Auto (Bld) [#/Vol] on 08-28-2024 Platelets (Bld) [#/Vol] 219 10 3/uL 150-450 [facility] Platelets (Bld) [#/Vol] Platelets [#/vol ume] in Blood by Automated count 150-450 [facility] RBC Auto (Bld) [#/Vol]on RBC (Bld) [#/Vol] 3.80 10 6/uL Low 4.20-5.40 [facility] RBC (Bld) [#/Vol] Erythrocytes [#/volu me] in Blood by Automated count Low 4.20-5.40 [facility] Serum or plasma anion gap de terminationon 08-28-2024 Anion gap [Moles/Vol] 16.2 mmol/L Fi relaCounts include 234 beds at the [facility] Anion gap [Moles/Vol] Serum or plasma an ion gap determination [facility] Urine protein/creatinine rat ioon 08-28-2024 Protein/Creatinine (U) [Ratio] 0.12 [facility] Protein/Creatinine (U) [Ratio] Urine protein/creatinine ratio [facility] Basophils Auto (Bld) [#/Vol] on 07-05-2024 Basophils (Bld) [#/Vol] 0.0 10 3/uL 0.0-0.1 [facility] Basophils/100 WBC Auto (Bld) on 07-05-2024 Basophils/100 WBC (Bld) 0.7 % 0.2-2.0 [facility] Eosinophils/100 WBC Auto (Bl d)on 07-05-2024 Eosinophils/100 WBC (Bld) 4.2 % 0.9-7.0 [facility] Erythrocyte distribution wid th Auto (RBC) [Ratio]on 07-05-2024 Erythrocyte distribution width (RBC) [Ratio] 14.9 % 11.0-15.0 [facility] Hematocrit Auto (Bld) [Volum e fraction]on 07-05-2024 Hematocrit (Bld) [Volume fraction] 36.5 % 36.0-48.0 [facility] Hemoglobin [Mass/volume] in Bloodon 07-05-2024 Hemoglobin (Bld) [Mass/Vol] 11.9 g/dL Low 12.0-16.0 [facility] Iron binding capacity [Mass/ volume] in Serum or Plasmaon 07-05-2024 Iron binding capacity [Mass/Vol] 344.0 ug/dL 250.0-450. 0 [facility] Iron saturation [Mass Fracti on] in Serum or Plasmaon 07-05-2024 Iron saturation [Mass fraction] 18.9 % [facility] Maxx 07-05-2024 L Specimen: [id number] Received: 07/10/24 Status: SHARON Mondragon Num: [id number] Spec Type: Impression Subm Dr: Broderick Howard DO Tissues: PATHPER Procedures: PATHREVIEW Age/ Patient Sex Location Account Attending Physician RodrigezCassi reyes 74/F LABELL [id number] Broderick Howard DO SPEC NUM: [id number] RECD: 07/10/24 STATUS: SHARON REQ NUM: [id number] GRACIA: 07/05/[address]: Broderick Howard DO ENTERED: 07/10/[address]: Evelio Cruz SPEC TYPE: Impression DEPT: ODALYS Knight ENTERED BY: [id number] RECV BY: [id number] ORDERED: PATHREVIEW ORDERED: PATHREVIEW Pathologist Review Abnormal [...] of adrenocort icosteroids requiring clinical correlation CPT: 68007 Specimen: [id number] Received: 07/10/24 Status: SHARON Mondragon Num: [id number] Spec Type: Impression Subm Dr: Broderick Howard DO Tissues: PATHPER Procedures: PATHREVIEW Patient: Cassi Rodrigez [id number] (Continued) Signed (signature on file) Kimberlyn Felipe MD 07/10/24 1757 Normal [facility] Laboratory - Chemistry and C hemistry - challengeon 07-05-2024 Cobalamin (Vitamin B12) [Mass/Vol] 400.0 pg/mL 193.0-986. 0 [facility] Ferritin [Mass/Vol] 24.0 ng/mL 8.0-252.0 [facility] Iron [Mass/Vol] 65.0 ug/dL 50.0-170.0 [facility] Laboratory - Hematology and Cell countson 07-05-2024 Immature granulocytes/100 WBC (Bld) 0.6 % High 0.0-0.5 [facility] Leukocytes [#/volume] correc tanesha for nucleated erythrocytes in Blood by Automated counon 07-05-2024 WBC corrected for nucl RBC Auto (Bld) [#/Vol] 5.4 10 3/uL 4.0-11.0 [facility] Lymphocytes Auto (Bld) [#/Vo l]on 07-05-2024 Lymphocytes (Bld) [#/Vol] 0.8 10 3/uL Low 1.2-3.8 [facility] Lymphocytes/100 WBC Auto (Bl d)on 07-05-2024 Lymphocytes/100 WBC (Bld) 14.4 % Low 20.5-60.0 [facility] MCH Auto (RBC) [Entitic mass ]on 07-05-2024 MCH (RBC) [Entitic mass] 30.8 pg 26.7-34.0 [facility] MCHC Auto (RBC) [Mass/Vol]on 07-05-2024 MCHC (RBC) [Mass/Vol] 32.6 g/dL 29.9-35.2 [facility] MCV Auto (RBC) [Entitic vol] on 07-05-2024 MCV (RBC) [Entitic vol] 94.6 fL 81.0-99.0 [facility] Monocytes Auto (Bld) [#/Vol] on 07-05-2024 Monocytes (Bld) [#/Vol] 0.4 10 3/uL 0.3-0.8 [facility] Monocytes/100 WBC Auto (Bld) on 07-05-2024 Monocytes/100 WBC (Bld) 6.5 % 1.7-12.0 [facility] Neutrophils Auto (Bld) [#/Vo l]on 07-05-2024 Neutrophils (Bld) [#/Vol] 4.0 10 3/uL 1.4-6.5 [facility] Neutrophils/100 WBC Auto (Bl d)on 07-05-2024 Neutrophils/100 WBC (Bld) 73.6 % 43.0-75.0 [facility] No Panel Informationon 07-05 Add Manual Differential See comment [facility] Comment on above: SEE SCANNED REPORT Eosinophils # (Auto) 0.2 10 3/uL 0.0-0.7 [facility] Folate 10.80 ng/mL 8.60-58.90 [facility] Immature Granulocyte # (Auto) 0.03 10 3/uL 0.00-0.03 [facility] Platelet mean volume Auto (B ld) [Entitic vol]on 07-05-2024 Platelet mean volume (Bld) [Entitic vol] 9.4 fL Low 9.5-13.5 [facility] Platelets Auto (Bld) [#/Vol] on 07-05-2024 Platelets (Bld) [#/Vol] 180 10 3/uL 150-450 [facility] RBC Auto (Bld) [#/Vol]on RBC (Bld) [#/Vol] 3.86 10 6/uL Low 4.20-5.40 [facility] CNOVon 06-29-2024 CNOV Office Visit (NEEPFV ) -- CASSI RODRIGEZ ([id number]) 1950 F Date Time Provider Department 06/29/24 1:00 PM ALEJANDRO VILLAR NEEPFV During your visit today, we recorded the following information about you: Pulse Blood pressure Weight Height 85/minute 133/72 85.4 kg 1.575 m Alejandro Villar MD, PhD 07/03/2024 12:56 PM Signed [facility] Patient Name: Cassi Rodrigez Date of : 1950 ESTABLISHED EPILEPSY CLINIC NOTE 06/29/2024 1:00 PM Reason for Visit: Epilepsy Clinical Summary: Ms. Rodrigez is a 74 year old female seen in [facility]. Classification Summary HISTORY OF [...] and s/p lumbar laminectomy in 07/2023. 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 Normal [facility] Comprehensive metabolic 2000 panelon 06-29-2024 Albumin [Mass/Vol] 4.3 g/dL 3.9 - 4.9 g/dL [facility] ALP [Catalytic activity/Vol] 170 U/L High 34 - 123 U/L [facility] ALT [Catalytic activity/Vol] 28 U/L 7 - 38 U/L [facility] Anion gap [Moles/Vol] 8 mmol/L 8 - 15 mmol/L [facility] AST [Catalytic activity/Vol] 22 U/L 13 - 35 U/L [facility] Bilirubin [Mass/Vol] 0.4 mg/dL 0.2 - 1 .3 mg/dL [facility] Calcium [Mass/Vol] 8.8 mg/dL 8.5 - 10. 2 mg/dL [facility] Chloride [Moles/Vol] 109 mmol/L High 98 - 10 7 mmol/L [facility] CO2 [Moles/Vol] 24 mmol/L 22 - 30 mmol/L [facility] Creatinine [Mass/Vol] 1.73 mg/dL High 0.58 - 0.96 mg/dL [facility] GFR/1.73 sq M.predicted among non-blacks MDRD (S/P/Bld) [Vol rate/Area] 31 mL/min/{1.73_m2} Low - PINF [facility] Comment on above: Estimated Glomerular Filtration [...] 111 mg/dL High 74 - 99 mg/dL [facility] Comment on above: The [place] Diabete s Association (ADA) provides guidance for [...] Standards of Medical Care in Diabetes 2016, [place] [employer] Association. Diabetes Care. 2016.39(Suppl 1). Interpretation and review of laboratory results Abnormal [facility] Potassium [Moles/Vol] 5.1 mmol/L 3.7 - 5.1 mmol/L [facility] Protein [Mass/Vol] 7.0 g/dL 6.3 - 8.0 g/dL [facility] Sodium [Moles/Vol] 141 mmol/L 136 - 144 mmol/L [facility] Urea nitrogen [Mass/Vol] 34 mg/dL High 7 - 21 mg/dL [facility] Albumin [Mass/Vol] 4.3 g/dL Normal 3.9-4.9 [facility] Comment on above: Order Comment: Speci men Type: BLOOD SPECIMENOrdering Facility: [facility] Address: [address] [place] [address] Performed By: #### 2 4323-8 ####[facility] LABORATORYCLIA [id number] [place] [address] [place] ALP [Catalytic activity/Vol] 170 U/L High 34-123 [facility] Comment on above: Order Comment: Speci men Type: BLOOD SPECIMENOrdering Facility: [facility] Address: [address] [place] [address] Performed By: #### 2 4323-8 ####[facility] LABORATORYCLIA [id number] [place] [address] [place] ALT [Catalytic activity/Vol] 28 U/L Normal 7-38 [facility] Comment on above: Order Comment: Speci men Type: BLOOD SPECIMENOrdering Facility: [facility] Address: [address] [place] [address] Performed By: #### 2 4323-8 ####[facility] LABORATORYCLIA [id number] [place] [address] [place] Anion gap [Moles/Vol] 8 mmol/L Normal 8-15 [facility] Comment on above: Order Comment: Speci men Type: BLOOD SPECIMENOrdering Facility: [facility] Address: [address] [place] [address] Performed By: #### 2 4323-8 ####[facility] LABORATORYCLIA [id number] [place] [id number] [place] AST [Catalytic activity/Vol] 22 U/L Normal 13-35 [facility] Comment on above: Order Comment: Speci men Type: BLOOD SPECIMENOrdering Facility: [facility] Address: [address] [place] [address] Performed By: #### 2 4323-8 ####[facility] LABORATORYCLIA [id number] [place] [id number] [place] Bilirubin [Mass/Vol] 0.4 mg/dL Normal 0.2-1.3 [facility] Comment on above: Order Comment: Speci men Type: BLOOD SPECIMENOrdering Facility: [facility] Address: [address] [place] [address] Performed By: #### 2 4323-8 ####[facility] LABORATORYCLIA [id number] [place] [address] [place] Calcium [Mass/Vol] 8.8 mg/dL Normal 8.5-10.2 [facility] Comment on above: Order Comment: Speci men Type: BLOOD SPECIMENOrdering Facility: [facility] Address: [address] [place] [address] Performed By: #### 2 4323-8 ####[facility] LABORATORYCLIA [id number] [place] [address] [place] Chloride [Moles/Vol] 109 mmol/L High 98-107 [facility] Comment on above: Order Comment: Speci men Type: BLOOD SPECIMENOrdering Facility: [facility] Address: [address] [place] [address] Performed By: #### 2 4323-8 ####[facility] LABORATORYCLIA [id number] [place] [address] [place] CO2 [Moles/Vol] 24 mmol/L Normal 22-30 [facility] Comment on above: Order Comment: Speci men Type: BLOOD SPECIMENOrdering Facility: [facility] Address: [address] [place] [address] Performed By: #### 2 4323-8 ####[facility] LABORATORYCLIA [id number] [place] [id number] [place] Creatinine [Mass/Vol] 1.73 mg/dL High 0.58-0.96 [facility] Comment on above: Order Comment: Speci men Type: BLOOD SPECIMENOrdering Facility: [facility] Address: [address] [place] [address] Performed By: #### 2 4323-8 ####[facility] LABORATORYCLIA [id number] [place] [address] [place] Creatinine and Glomerular filtration rate.predicted panel (S/P/Bld) 31 mL/min/1.73m??? Low >=60 [facility] Comment on above: Order Comment: Warren almazan Type: BLOOD SPECIMENOrdering Facility: [facility] Address: [address] [place] [address] Result Comment: Radhika mated Glomerular Filtration Rate [...] actual GFR. Performed By: #### 2 4323-8 ####[facility] LABORATORYCLIA [id number] [place] [address] [place] Glucose [Mass/Vol] 111 mg/dL High 74-99 [facility] Comment on above: Order Comment: Warren almazan Type: BLOOD SPECIMENOrdering Facility: [facility] Address: [address] [place] [address] Result Comment: The [place] Diabetes Association (ADA) provides guidance for cutoff [...] Standards of Medical Care in Diabetes 2016, [place] Diabetes [employer]. Diabetes Care. 2016.39(Suppl 1). Performed By: #### 2 4323-8 ####[facility] LABORATORYCLIA [id number] [place] [id number] [place] Potassium [Moles/Vol] 5.1 mmol/L Normal 3.7-5.1 [facility] Comment on above: Order Comment: Speci men Type: BLOOD SPECIMENOrdering Facility: [facility] Address: [address] [place] [address] Performed By: #### 2 4323-8 ####[facility] LABORATORYCLIA [id number] [place] [id number] [place] Protein [Mass/Vol] 7.0 g/dL Normal 6.3-8.0 [facility] Comment on above: Order Comment: Speci men Type: BLOOD SPECIMENOrdering Facility: [facility] Address: [address] [place] [address] Performed By: #### 2 4323-8 ####[facility] LABORATORYCLIA [id number] [place] [address] [place] Sodium [Moles/Vol] 141 mmol/L Normal 136-144 [facility] Comment on above: Order Comment: Speci men Type: BLOOD SPECIMENOrdering Facility: [facility] Address: [address] [place] [address] Performed By: #### 2 4323-8 ####[facility] LABORATORYCLIA [id number] [place] [id number] [place] Urea nitrogen [Mass/Vol] 34 mg/dL High 7- [facility] Comment on above: Order Comment: Speci men Type: BLOOD SPECIMENOrdering Facility: [facility] Address: [address] [place] [address] Performed By: #### 2 4323-8 ####[facility] LABORATORYCLIA [id number] [place] [id number] [place] LEVETIRACETAMon 06-29-2024 levETIRAcetam [Mass/Vol] 59.9 ug/mL High 12.0 - 46.0 ug/mL [facility] Comment on above: This test is [...] developed and its performance characteristics determined by [facility] Pathology and Laboratory Medicine [place] ([facility]). It has not been cleared or approved by the FDA. -[facility] is regulated under CLIA as qualified to perform high-complexity testing. This test is used for clinical purposes. It should not be regarded as investigational or for research. Laboratory - Chemistry and C hemistry - challengeon 06-29-2024 Albumin [Mass/Vol] 4.3 g/dL 3.9-4.9 [facility] ALP [Catalytic activity/Vol] 170 U/L High 34-123 [facility] ALT [Catalytic activity/Vol] 28 U/L 7-38 [facility] AST [Catalytic activity/Vol] 22 U/L 13-35 [facility] Bilirubin [Mass/Vol] 0.4 mg/dL 0.2-1.3 [facility] Calcium [Mass/Vol] 8.8 mg/dL 8.5-10.2 [facility] Chloride [Moles/Vol] 109 mmol/L High 98-107 [facility] CO2 [Moles/Vol] 24 mmol/L 22-30 [facility] Creatinine [Mass/Vol] 1.73 mg/dL High 0.58-0.96 [facility] Glucose [Mass/Vol] 111 mg/dL High 74-99 [facility] Comment on above: The [place] Diabete s Association (ADA) provides guidance for [...] Standards of Medical Care in Diabetes 2016, [place] Diabetes Association. Diabetes Care. 2016.39(Suppl 1). Potassium [Moles/Vol] 5.1 mmol/L 3.7-5.1 [facility] Sodium [Moles/Vol] 141 mmol/L 136-144 [facility] Urea nitrogen [Mass/Vol] 34 mg/dL High 7-21 [facility] No Panel Informationon 06-29 Estimated GFR (CKD-EPI) 31 mL/min/1.73m??? Low >=60 [facility] Comment on above: Estimated Glomerular [...] Levetiracetam (Keppra) Level 59.9 ug/mL High 12.0-46.0 [facility] Comment on above: This test [...] developed and its performance characteristics determined by [facility]'s [facility] Pathology and Laboratory Medicine [place] ([facility]). It has not been cleared or approved by the FDA. [facility] is regulated under CLIA as qualified to perform high-complexity testing. This test is used for clinical purposes. It should not be regarded as investigational or for research. Protein [Mass/volume] in Ser um or Plasmaon 06-29-2024 Protein [Mass/Vol] 7.0 g/dL 6.3-8.0 [facility] Serum or plasma anion gap de terminationon 06-29-2024 Anion gap [Moles/Vol] 8 mmol/L 06-29 [facility] levETIRAcetam SerPl-mCncon 0 06-29-2024 levETIRAcetam [Mass/Vol] 59.9 ug/mL High 12.0-46.0 [facility] Comment on above: Order Comment: Speci men Type: BLOOD SPECIMENOrdering Facility: [facility] Address: [address] [place] [address] Result Comment: This test is not suitable [...] developed and its performance characteristics determined by [facility]'s [facility] Pathology and Laboratory Medicine [place] ([facility]). It has not been cleared or approved by the FDA. [facility] is regulated under CLIA as qualified to perform high-complexity testing. This test is used for clinical purposes. It should not be regarded as investigational or for research. Performed By: #### 3 0471-7 ####[facility] LABCLIA [id number] [place] ERNESTDESK [id number] [id number] [place] levETIRAcetam [Mass/Vol]on 0 06-29-2024 Interpretation and review of laboratory results Abnormal [facility] INR in Platelet poor plasma by Coagulation assayon 06-05-2024 INR Coag (PPP) [Relative time] 2.29 {INR} [facility] Comment on above: DESIRED INR:2.0-3.0 CONDITIONS NOT LISTED BELOW2.5-3.5 FOR PROSTHETIC HEART VALVE REPLACEMENT2.5-3.5 RECURRENT THROMBOSIS Prothrombin time (PT)on 05-16 PT Coag (PPP) [Time] 22.4 s High 9.0-11.6 [facility] ISTAT XRay CREon 05-30-2024 ISTAT GFR 29.200 Normal [facility] Comment on above: Result Comment: PERF ORMED BY: [facility] [address] [place] [address] PATHOLOGIST ASIC ENGINEER LELE FALK M.D. Performed By: #### I SCRE ####[facility] [id number] [place] [id number] [facility] MR lumbar spine wo conon MR lumbar spine wo con [facility] Main [place] [address] [place] [id number] MRI Report Signed Patient: Cassi Rodrigez MR#: [id number] 8 : 1950 Acct:[id number] Age/Sex: 74 / F ADM Date: 05/30/24 Loc: MR Room: Type: [facility] Attending Dr: David Mcfadden PA-C Copies [...] Rico John M.D.05/30/2024 10:27 AM Dictation Location: [place] [address] Transcribed By: [facility] 05/30/24 1027 Dictated By: Rico John DO 05/30/24 1006 Signed By: 05/30/24 1027 Normal [facility] No Panel InformationOrdered By: David Mcfadden on 05-30-2024 Bedside Estimated GFR (eGFR) 29.200 [facility] Whole blood creatinine measu rementOrdered By: David Mcfadden on 05-30-2024 Creatinine [Mass/Vol] 1.8 mg/dL High 0.6-1.3 [facility] Comment on above: ER/ESD physician is notified/shown all ISTAT results.Critical values may be confirmed by laboratory testing ifdeemed necessary by ER attending doctor. Result Comment: ER/E SD physician is notified/shown all ISTAT results. Critical values may be confirmed by laboratory testing if deemed necessary by ER attending doctor. 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 Patient states she would like to receive Botox treatment today. 2 vials of Botox A (100 units in each) reconstituted with 2.2 cc of normal saline in each vial. Botox drawn up into four, 1 cc syringes. Each syringe containing 50 units of Botox. Assisted by: Lon VARELA Botox, 2 vials: Lot # [id number] Exp Lot # [id number] Exp Botox handed to Dr. Reilly to administer and verified order. Referring Provider: RANDA REILLY [[id number]] Allergies As of Date: 05/23/2024 Noted Allergy [...] 10/24/2019 Visit Notes: >> Tomasa Farfan RN aldair May 23, 2024 11:54 AM Status: Signed Patient name and confirmed. Patient states she would like to receive Botox treatment today. 2 vials of Botox A (100 units in each) reconstituted with 2.2 cc of nor (more content not included)... Normal [facility] INR in Platelet poor plasma by Coagulation assayon 05-15-2024 INR Coag (PPP) [Relative time] 2.71 {INR} [facility] Comment on above: DESIRED INR:2.0-3.0 CONDITIONS NOT LISTED BELOW2.5-3.5 FOR PROSTHETIC HEART VALVE REPLACEMENT2.5-3.5 RECURRENT THROMBOSIS Prothrombin time (PT)on PT Coag (PPP) [Time] 26.0 s High 9.0-11.6 [facility] Basophils Auto (Bld) [#/Vol] on 05-05-2024 Basophils (Bld) [#/Vol] 0.0 10 3/uL 0.0-0.1 [facility] Basophils/100 WBC Auto (Bld) on 05-05-2024 Basophils/100 WBC (Bld) 1.1 % 0.2-2.0 [facility] Eosinophils/100 WBC Auto (Bl d)on 05-05-2024 Eosinophils/100 WBC (Bld) 6.9 % 0.9-7.0 [facility] Erythrocyte distribution wid th Auto (RBC) [Ratio]on 05-05-2024 Erythrocyte distribution width (RBC) [Ratio] 13.3 % 11.0-15.0 [facility] Estimated glomerular filtrat ion rate (GFR) non- Americanon 05-05-2024 GFR/1.73 sq M.predicted among non-blacks MDRD (S/P/Bld) [Vol rate/Area] 32 mL/min/{1.73_m2} Low >=60 [facility] Hematocrit Auto (Bld) [Volum e fraction]on 05-05-2024 Hematocrit (Bld) [Volume fraction] 35.5 % Low 36.0-48.0 [facility] Hemoglobin [Mass/volume] in Bloodon 05-05-2024 Hemoglobin (Bld) [Mass/Vol] 11.1 g/dL Low 12.0-16.0 [facility] Laboratory - Chemistry and C hemistry - challengeon 05-05-2024 Calcium [Mass/Vol] 8.4 mg/dL Low 8.5-10.1 [facility] Chloride [Moles/Vol] 108 mmol/L High 98-107 [facility] CO2 [Moles/Vol] 26.2 mmol/L 21.0-32.0 [facility] Creatinine [Mass/Vol] 1.60 mg/dL High 0.55-1.02 [facility] GFR/1.73 sq M.predicted MDRD (S/P/Bld) [Vol rate/Area] 38 mL/min/{1.73_m2} Low >=60 [facility] Glucose [Mass/Vol] 103 mg/dL 74-106 [facility] Potassium [Moles/Vol] 4.4 mmol/L 3.5-5.1 [facility] Sodium [Moles/Vol] 140 mmol/L 136-145 [facility] Urea nitrogen [Mass/Vol] 24.0 mg/dL High 7.0-18.0 [facility] Urea nitrogen/Creatinine [Mass ratio] 15.0 mg/mg [facility] Laboratory - Hematology and Cell countson 05-05-2024 ESR (Bld) [Velocity] 45 mm/h High <=30 [facility] Immature granulocytes/100 WBC (Bld) 0.0 % 0.0-0.5 [facility] Leukocytes [#/volume] correc tanesha for nucleated erythrocytes in Blood by Automated counon 05-05-2024 WBC corrected for nucl RBC Auto (Bld) [#/Vol] 3.8 10 3/uL Low 4.0-11.0 [facility] Lymphocytes Auto (Bld) [#/Vo l]on 05-05-2024 Lymphocytes (Bld) [#/Vol] 1.0 10 3/uL Low 1.2-3.8 [facility] Lymphocytes/100 WBC Auto (Bl d)on 05-05-2024 Lymphocytes/100 WBC (Bld) 27.1 % 20.5-60.0 [facility] MCH Auto (RBC) [Entitic mass ]on 05-05-2024 MCH (RBC) [Entitic mass] 28.8 pg 26.7-34.0 [facility] [facility] MCHC Auto (RBC) [Mass/Vol]on 05-05-2024 MCHC (RBC) [Mass/Vol] 31.3 g/dL 29.9-35.2 [facility] MCV Auto (RBC) [Entitic vol] on 05-05-2024 MCV (RBC) [Entitic vol] 92.2 fL 81.0-99.0 [facility] Monocytes Auto (Bld) [#/Vol] on 05-05-2024 Monocytes (Bld) [#/Vol] 0.3 10 3/uL 0.3-0.8 [facility] Monocytes/100 WBC Auto (Bld) on 05-05-2024 Monocytes/100 WBC (Bld) 8.2 % 1.7-12.0 [facility] Neutrophils Auto (Bld) [#/Vo l]on 05-05-2024 Neutrophils (Bld) [#/Vol] 2.1 10 3/uL 1.4-6.5 [facility] Neutrophils/100 WBC Auto (Bl d)on 05-05-2024 Neutrophils/100 WBC (Bld) 56.7 % 43.0-75.0 [facility] No Panel Informationon 05-05 C-Reactive Protein, Quantitative <0.50 mg/dL <=0.50 [facility] Eosinophils # (Auto) 0.3 10 3/uL 0.0-0.7 [facility] Immature Granulocyte # (Auto) 0.00 10 3/uL 0.00-0.03 [facility] Platelet mean volume Auto (B ld) [Entitic vol]on 05-05-2024 Platelet mean volume (Bld) [Entitic vol] 9.4 fL Low 9.5-13.5 [facility] Platelets Auto (Bld) [#/Vol] on 05-05-2024 Platelets (Bld) [#/Vol] 217 10 3/uL 150-450 [facility] RBC Auto (Bld) [#/Vol]on RBC (Bld) [#/Vol] 3.85 10 6/uL Low 4.20-5.40 [facility] Serum or plasma anion gap de terminationon 05-05-2024 Anion gap [Moles/Vol] 10.2 mmol/L [facility] MR lumbar spine wo/w conon 0 03-28-2024 MR lumbar spine wo/w con [facility] [address] MRI Report Signed Patient: Cassi Rodrigez MR#: [id number] 8 : 1950 Acct:[id number] Age/Sex: 74 / F ADM Date: 03/28/24 Loc: Room: Type: [facility] Attending Dr: Broderick Howard DO Copies [...] Arnel Simon M.D.03/28/2024 12:17 PM Dictation Location: [place] [address] Transcribed By: [facility] 03/28/24 1217 Dictated By: Arnel Simon II, MD 03/28/24 1209 Signed By: 03/28/24 1217 Normal [facility] No Panel Informationon 03-15 BLANK _ [facility] Implant Date 05/22/2015 [facility] Model [address] [facility] PACEMAKER REMOTE CHECKon AV Delay Adaptive Paced Minimum (ms) 180 ms [facility] AV Delay Adaptive Sensed Minimum (ms) 150 ms [facility] AV Delay Adaptive Status DISABLED [facility] Battery Voltage (volts) 2.92 V [facility] Godfrey RA Pacing Amplitude (volts) 1.5 V [facility] Godfrey RA Pacing Polarity BI [facility] Godfrey RA Pacing Pulse Width (ms) 0.4 ms [facility] Godfrey RA Sensing Amplitude (mvolts) 0.3 mV [facility] Godfrey RA Sensing Blanking Period (ms) 150 ms [facility] Godfrey RA Sensing Polarity BI [facility] Godfrey RA Sensing Refractory Period (ms) Auto [facility] Godfrey RV Pacing Amplitude (volts) 2 V [facility] Godfrey RV Pacing Polarity BI [facility] Godfrey RV Pacing Pulse Width (ms) 0.4 ms [facility] Godfrey RV Sensing Amplitude (mvolts) 0.9 mV [facility] Godfrey RV Sensing Blanking Period (ms) 200 ms [facility] Godfrey RV Sensing Polarity BI [facility] Hysteresis Rate (bpm) DISABLED [facility] Lead1 Jorge KELLER [facility] Lead2 Jorge KELLER [facility] Location RV [facility] Location RA [facility] Lower Rate (bpm) 60 {beats}/min [facility] Max Sensor Rate (bmp) 130 {beats}/min [facility] Model [id number] COBOS [facility] PM-Device Jorge KELLER [facility] PM-Percent Pacing (A) 99.48 % [facility] PM-Percent Pacing (V) 0.27 % [facility] PM-PMT Intervention ENABLED [facility] PM-PVC Intervention ENABLED [facility] PM-Rate Modulation Acceleration Reaction 30 s [facility] PM-Rate Modulation ADL Rate (bpm) 100 {beats}/min [facility] PM-Rate Modulation Deceleration Exercise [facility] PM-Rate Modulation Threshold MediumLow [facility] RA Bipolar Impedance ohms 418 ohm [facility] RA Unipolar Impedance ohms 399 ohm [facility] RV Bipolar Impedance ohms 532 ohm [facility] RV Unipolar Impedance [address] [facility] Serial Number [id number] [facility] Serial Number [id number] [facility] Serial Number [id number] [facility] Thresh RA Capture Amplitude (volts) 0.5 V [facility] Thresh RA Capture Duration (ms) 0.4 ms [facility] Thresh RA Sensing Amplitude (mvolts) 3.125 mV [facility] Thresh RV Capture Amplitude (volts) 0.875 V [facility] Thresh RV Capture Duration (ms) 0.4 ms [facility] Thresh RV Sensing Amplitude (mvolts) 11.875 mV [facility] Tracking Rate (bpm) 130 {beats}/min [facility] 03/15/2024 Formattin g of this note [...] CARDIAC DATA AND REPORT, Scanned Documents section. [facility] Albumin [Mass/volume] in Ser um or Plasmaon 03-03-2024 Albumin [Mass/Vol] 3.5 g/dL 2.9-4.4 [facility] Basophils Auto (Bld) [#/Vol] on 03-03-2024 Basophils (Bld) [#/Vol] 0.0 10 3/uL 0.0-0.1 [facility] Basophils/100 WBC Auto (Bld) on 03-03-2024 Basophils/100 WBC (Bld) 0.7 % 0.2-2.0 [facility] Eosinophils/100 WBC Auto (Bl d)on 03-03-2024 Eosinophils/100 WBC (Bld) 10.8 % High 0.9-7.0 [facility] Erythrocyte distribution wid th Auto (RBC) [Ratio]on 03-03-2024 Erythrocyte distribution width (RBC) [Ratio] 13.5 % 11.0-15.0 [facility] Estimated glomerular filtrat ion rate (GFR) non- Americanon 03-03-2024 GFR/1.73 sq M.predicted among non-blacks MDRD (S/P/Bld) [Vol rate/Area] 34 mL/min/{1.73_m2} Low >=60 [facility] Globulin Calc (S) [Mass/Vol] on 03-03-2024 Globulin (S) [Mass/Vol] 3.6 g/dL [facility] Hematocrit Auto (Bld) [Volum e fraction]on 03-03-2024 Hematocrit (Bld) [Volume fraction] 38.8 % 36.0-48.0 [facility] Hemoglobin [Mass/volume] in Bloodon 03-03-2024 Hemoglobin (Bld) [Mass/Vol] 11.9 g/dL Low 12.0-16.0 [facility] IgA [Mass/volume] in Serum o r Plasmaon 03-03-2024 IgA [Mass/Vol] 265 mg/dL 64-422 [facility] IgG [Mass/volume] in Serum o r Plasmaon 03-03-2024 IgG [Mass/Vol] 911 mg/dL [phone] [facility] IgM [Mass/volume] in Serum o r Plasmaon 03-03-2024 IgM [Mass/Vol] 64 mg/dL 26-217 [facility] Immunoglobulin light chains. kappa.free [Mass/volume] in Serumon 03-03-2024 Immunoglobulin light chains.kappa.free (S) [Mass/Vol] 44.7 mg/L Abnormal 3.3-19.4 [facility] Immunoglobulin light chains. kappa.free/Immunoglobulin light chains.lambda.free [Yanelis 03-03-2024 Immunoglobulin light chains.kappa.free/Immun oglobulin light chains.lambda.free (S) [Mass ratio] 1.16 0.26-1.65 [facility] Comment on above: [facility] at[facility] [address] [id number] Director: Junaid Sawyer PhD, Phone: [phone] Immunoglobulin light chains. lambda.free [Mass/volume] in Serum or Plasmaon 03-03-2024 Immunoglobulin light chains.lambda.free [Mass/Vol] 38.7 mg/L Abnormal 5.7-26.3 [facility] Iron binding capacity [Mass/ volume] in Serum or Plasmaon 03-03-2024 Iron binding capacity [Mass/Vol] 338.0 ug/dL 250.0-450. 0 [facility] Iron saturation [Mass Fracti on] in Serum or Plasmaon 03-03-2024 Iron saturation [Mass fraction] 7.7 % [facility] Laboratory - Chemistry and C hemistry - challengeon 03-03-2024 Albumin [Mass/Vol] 3.3 g/dL Low 3.4-5.0 [facility] ALP [Catalytic activity/Vol] 155 U/L High 46-116 [facility] ALT [Catalytic activity/Vol] 21 U/L 14-59 [facility] AST [Catalytic activity/Vol] 25 U/L 15-37 [facility] Bilirubin [Mass/Vol] 0.4 mg/dL 0.2-1.0 [facility] Calcium [Mass/Vol] 9.0 mg/dL 8.5-10.1 [facility] Chloride [Moles/Vol] 106 mmol/L 98-107 [facility] CO2 [Moles/Vol] 21.4 mmol/L 21.0-32.0 [facility] Cobalamin (Vitamin B12) [Mass/Vol] 495.0 pg/mL 193.0-986. 0 [facility] Creatinine [Mass/Vol] 1.50 mg/dL High 0.55-1.02 [facility] Ferritin [Mass/Vol] 19.0 ng/mL 8.0-252.0 [facility] GFR/1.73 sq M.predicted MDRD (S/P/Bld) [Vol rate/Area] 41 mL/min/{1.73_m2} Low >=60 [facility] Glucose [Mass/Vol] 113 mg/dL High 74-106 [facility] Iron [Mass/Vol] 26.0 ug/dL Low 50.0-170.0 [facility] Potassium [Moles/Vol] 4.3 mmol/L 3.5-5.1 [facility] Protein [Mass/Vol] 6.9 g/dL 6.4-8.2 [facility] Sodium [Moles/Vol] 139 mmol/L 136-145 [facility] Urea nitrogen [Mass/Vol] 25.0 mg/dL High 7.0-18.0 [facility] Urea nitrogen/Creatinine [Mass ratio] 16.7 mg/mg [facility] Laboratory - Hematology and Cell countson 03-03-2024 Immature granulocytes/100 WBC (Bld) 0.0 % 0.0-0.5 [facility] Leukocytes [#/volume] correc tanesha for nucleated erythrocytes in Blood by Automated counon 03-03-2024 WBC corrected for nucl RBC Auto (Bld) [#/Vol] 2.8 10 3/uL Low 4.0-11.0 [facility] Lymphocytes Auto (Bld) [#/Vo l]on 03-03-2024 Lymphocytes (Bld) [#/Vol] 0.8 10 3/uL Low 1.2-3.8 [facility] Lymphocytes/100 WBC Auto (Bl d)on 03-03-2024 Lymphocytes/100 WBC (Bld) 27.6 % 20.5-60.0 [facility] MCH Auto (RBC) [Entitic mass ]on 03-03-2024 MCH (RBC) [Entitic mass] 28.8 pg 26.7-34.0 [facility] MCHC Auto (RBC) [Mass/Vol]on 03-03-2024 MCHC (RBC) [Mass/Vol] 30.7 g/dL 29.9-35.2 [facility] MCV Auto (RBC) [Entitic vol] on 03-03-2024 MCV (RBC) [Entitic vol] 93.9 fL 81.0-99.0 [facility] Monocytes Auto (Bld) [#/Vol] on 03-03-2024 Monocytes (Bld) [#/Vol] 0.3 10 3/uL 0.3-0.8 [facility] Monocytes/100 WBC Auto (Bld) on 03-03-2024 Monocytes/100 WBC (Bld) 9.7 % 1.7-12.0 [facility] Neutrophils Auto (Bld) [#/Vo l]on 03-03-2024 Neutrophils (Bld) [#/Vol] 1.4 10 3/uL 1.4-6.5 [facility] Neutrophils/100 WBC Auto (Bl d)on 03-03-2024 Neutrophils/100 WBC (Bld) 51.2 % 43.0-75.0 [facility] No Panel Informationon 03-03 Eosinophils # (Auto) 0.3 10 3/uL 0.0-0.7 [facility] Folate 9.50 ng/mL 8.60-58.90 [facility] Immature Granulocyte # (Auto) 0.00 10 3/uL 0.00-0.03 [facility] Protein Electrophoresis M-Miguel Not Observed g/dL Not Observed [facility] Protein Electrophoresis Note Comment . [facility] Comment on above: Protein electrophore sis scan will follow via computer,mail, or drum handler delivery. Platelet mean volume Auto (B ld) [Entitic vol]on 03-03-2024 Platelet mean volume (Bld) [Entitic vol] 9.4 fL Low 9.5-13.5 [facility] Platelets Auto (Bld) [#/Vol] on 03-03-2024 Platelets (Bld) [#/Vol] 203 10 3/uL 150-450 [facility] Protein [Mass/volume] in Ser um or Plasmaon 03-03-2024 Protein [Mass/Vol] 6.2 g/dL 6.0-8.5 [facility] RBC Auto (Bld) [#/Vol]on RBC (Bld) [#/Vol] 4.13 10 6/uL Low 4.20-5.40 [facility] Serum globulin measurement ( mass/volume)on 03-03-2024 Globulin (S) [Mass/Vol] 2.7 g/dL 2.2-3.9 [facility] Serum or plasma albumin/glob ulin mass ratioon 03-03-2024 Albumin/Globulin [Mass ratio] 0.9 {ratio} [facility] Albumin/Globulin [Mass ratio] 1.3 {ratio} 0.7-1.7 [facility] Serum or plasma alpha 1 glob ulin measurement by electrophoresis (mass/volume)on 03-03-2024 Alpha 1 globulin Elph [Mass/Vol] 0.3 g/dL 0.0-0.4 [facility] Serum or plasma alpha 2 glob ulin measurement by electrophoresis (mass/volume)on 03-03-2024 Alpha 2 globulin Elph [Mass/Vol] 0.7 g/dL 0.4-1.0 [facility] Serum or plasma anion gap de terminationon 03-03-2024 Anion gap [Moles/Vol] 15.9 mmol/L Fi [facility] Serum or plasma beta globuli n measurement by electrophoresis (mass/volume)on 03-03-2024 Beta globulin Elph [Mass/Vol] 1.0 g/dL 0.7-1.3 [facility] Serum or plasma gamma globul in measurement by electrophoresis (mass/volume)on 03-03-2024 Gamma globulin Elph [Mass/Vol] 0.8 g/dL 0.4-1.8 [facility] Serum or plasma immunoelectr ophoresis interpretationon 03-03-2024 Interpretation IEP [Interp] Comment . [facility] Comment on above: No monoclonality det ected. Estimated glomerular filtrat ion rate (GFR) non- Americanon 02-10-2024 GFR/1.73 sq M.predicted among non-blacks MDRD (S/P/Bld) [Vol rate/Area] 27 mL/min/{1.73_m2} >=60 [facility] Globulin Calc (S) [Mass/Vol] on 02-10-2024 Globulin (S) [Mass/Vol] 3.7 g/dL [facility] Laboratory - Chemistry and C hemistry - challengeon 02-10-2024 Albumin [Mass/Vol] 3.3 g/dL 3.4-5.0 [facility] ALP [Catalytic activity/Vol] 174 U/L 46-116 [facility] ALT [Catalytic activity/Vol] 24 U/L 14-59 [facility] Amylase [Catalytic activity/Vol] 16 U/L 25-115 [facility] AST [Catalytic activity/Vol] 19 U/L 15-37 [facility] Bilirubin [Mass/Vol] 0.4 mg/dL 0.2-1.0 [facility] Calcium [Mass/Vol] 8.6 mg/dL 8.5-10.1 [facility] Chloride [Moles/Vol] 107 mmol/L 98-107 [facility] CO2 [Moles/Vol] 26.8 mmol/L 21.0-32.0 [facility] Creatinine [Mass/Vol] 1.81 mg/dL 0.55-1.02 [facility] GFR/1.73 sq M.predicted MDRD (S/P/Bld) [Vol rate/Area] 33 mL/min/{1.73_m2} >=60 [facility] Glucose [Mass/Vol] 85 mg/dL 74-106 [facility] Lipase [Catalytic activity/Vol] 13.0 U/L 16.0-77.0 [facility] Potassium [Moles/Vol] 4.6 mmol/L 3.5-5.1 [facility] Protein [Mass/Vol] 7.0 g/dL 6.4-8.2 [facility] Sodium [Moles/Vol] 143 mmol/L 136-145 [facility] Urea nitrogen [Mass/Vol] 25.0 mg/dL 7.0-18.0 [facility] Urea nitrogen/Creatinine [Mass ratio] 13.8 mg/mg [facility] Serum or plasma albumin/glob ulin mass ratioon 02-10-2024 Albumin/Globulin [Mass ratio] 0.9 {ratio} [facility] Serum or plasma anion gap de terminationon 02-10-2024 Anion gap [Moles/Vol] 13.8 mmol/L [facility] Serum or plasma cancer antig en 19-9 measurement (units/volume)on 02-10-2024 Cancer Ag 19-9 Qn 13 [arb'U]/mL 0-35 [facility] Comment on above: [facility] El ectrochemiluminescence Immunoassay(ECLIA)Values obtained with different assay methods or kits cannotbe used interchangeably. Results cannot be interpreted asabsolute evidence of the presence or absence of malignantdisease.Performed at: [facility] [address] [id number] Director: Junaid Sawyer PhD, Phone: [phone] No Panel Informationon 09-08 BLANK _ [facility] Implant Date 05/22/2015 [facility] Model [address] PACEMAKER CLINIC CHECKon AV Delay Adaptive Paced Minimum (ms) 180 ms [facility] AV Delay Adaptive Sensed Minimum (ms) 150 ms [facility] AV Delay Adaptive Status DISABLED [facility] Battery Voltage (volts) 2.94 V [facility] Godfrey RA Pacing Amplitude (volts) 1.5 V [facility] Godfrey RA Pacing Polarity BI [facility] Godfrey RA Pacing Pulse Width (ms) 0.4 ms [facility] Godfrey RA Sensing Amplitude (mvolts) 0.3 mV [facility] Godfrey RA Sensing Blanking Period (ms) 150 ms [facility] Godfrey RA Sensing Polarity BI [facility] Godfrey RA Sensing Refractory Period (ms) Auto [facility] Godfrey RV Pacing Amplitude (volts) 2 V [facility] Godfrey RV Pacing Polarity BI [facility] Godfrey RV Pacing Pulse Width (ms) 0.4 ms [facility] Godfrey RV Sensing Amplitude (mvolts) 0.9 mV [facility] Godfrey RV Sensing Blanking Period (ms) 200 ms [facility] Godfrey RV Sensing Polarity BI [facility] Hysteresis Rate (bpm) DISABLED [facility] Lead1 Mfg MDT [facility] Lead2 Mfg MDT [facility] Location RV [facility] Location RA [facility] Lower Rate (bpm) 60 {beats}/min [facility] Max Sensor Rate (bmp) 130 {beats}/min [facility] Model [id number] COBOS [facility] PM-Device Mfg MDT [facility] PM-Percent Pacing (A) 99.4 % [facility] PM-Percent Pacing (V) 0.24 % [facility] PM-PMT Intervention ENABLED [facility] PM-PVC Intervention ENABLED [facility] PM-Rate Modulation Acceleration Reaction 30 s [facility] PM-Rate Modulation ADL Rate (bpm) 100 {beats}/min [facility] PM-Rate Modulation Deceleration Exercise [facility] PM-Rate Modulation Threshold MediumLow [facility] RA Bipolar Impedance ohms 456 ohm [facility] RA Unipolar Impedance ohms 418 ohm [facility] RV Bipolar Impedance ohms 551 ohm [facility] RV Unipolar Impedance [address] [facility] Serial Number [id number] [facility] Serial Number [id number] [facility] Serial Number [id number] [facility] Thresh RA Capture Amplitude (volts) 0.5 V [facility] Thresh RA Capture Duration (ms) 0.4 ms [facility] Thresh RA Sensing Amplitude (mvolts) 1.5 mV [facility] Thresh RV Capture Amplitude (volts) 0.75 V [facility] Thresh RV Capture Duration (ms) 0.4 ms [facility] Thresh RV Sensing Amplitude (mvolts) 13.125 mV [facility] Tracking Rate (bpm) 130 {beats}/min [facility] Basophils Auto (Bld) [#/Vol] Ordered By: Niki Weeks on 08-05-2023 Basophils (Bld) [#/Vol] 0.0 10*3/uL 0.0-0.2 [facility] Basophils/100 WBC Auto (Bld) Ordered By: Niki Rms on 08-05-2023 Basophils/100 WBC (Bld) 0.2 % . [facility] Calcium [Mass/volume] in Ser um or PlasmaOrdered By: Niki Weeks on 08-05-2023 Calcium [Mass/Vol] 8.1 mg/dL 8.6-10.3 [facility] Carbon dioxide, total [Moles /volume] in Serum or PlasmaOrdered By: Niki Weeks on 08-05-2023 CO2 [Moles/Vol] 25.2 mmol/L 21.0-31.0 [facility] Chloride [Moles/volume] in S akila or PlasmaOrdered By: Niki Weeks on 08-05-2023 Chloride [Moles/Vol] 111 mmol/L 98-107 [facility] Creatinine [Mass/volume] in Serum or PlasmaOrdered By: Niki Weeks on 08-05-2023 Creatinine [Mass/Vol] 1.43 mg/dL 0.60-1.20 [facility] Eosinophils Auto (Bld) [#/Vo l]Ordered By: Niki Weeks on 08-05-2023 Eosinophils (Bld) [#/Vol] 0.1 10*3/uL 0.0-0.45 [facility] Eosinophils/100 WBC Auto (Bl d)Ordered By: Niki Weeks on 08-05-2023 Eosinophils/100 WBC (Bld) 1.7 % . [facility] Erythrocyte distribution wid th Auto (RBC) [Ratio]Ordered By: Niki Weeks on 08-05-2023 Erythrocyte distribution width (RBC) [Ratio] 13.5 % 11.9-15.3 [facility] Glucose [Mass/volume] in Ser um or PlasmaOrdered By: Niki Weeks on 08-05-2023 Glucose [Mass/Vol] 121 mg/dL 70-100 [facility] Comment on above: ADA recommended refe rence rangeRandom Glucose Reference Range is dependent on time and content of last meal. Glucose of more than 200 mg/dL in a nonstressed, ambulatory subject supports the diagnosis of Diabetes Mellitus. Hematocrit Auto (Bld) [Volum e fraction]Ordered By: Niki Weeks on 08-05-2023 Hematocrit (Bld) [Volume fraction] 29.9 % 34.0-46.4 [facility] Hemoglobin [Mass/volume] in BloodOrdered By: Niki Weeks on 08-05-2023 Hemoglobin (Bld) [Mass/Vol] 10.0 g/dL 11.8-15.4 [facility] Leukocytes [#/volume] correc tanesha for nucleated erythrocytes in Blood by Automated counOrdered By: Niki Weeks on 08-05-2023 WBC corrected for nucl RBC Auto (Bld) [#/Vol] 7.3 10*3/uL 3.8-11.6 [facility] Lymphocytes Auto (Bld) [#/Vo l]Ordered By: Niki Blades on 08-05-2023 Lymphocytes (Bld) [#/Vol] 0.9 10*3/uL 1.00-4.8 [facility] Lymphocytes/100 WBC Auto (Bl d)Ordered By: Niki Blades on 08-05-2023 Lymphocytes/100 WBC (Bld) 11.8 % . [facility] MCH Auto (RBC) [Entitic mass ]Ordered By: Niki Blades on 08-05-2023 MCH (RBC) [Entitic mass] 31.9 pg 24.7-34.3 [facility] MCHC Auto (RBC) [Mass/Vol]Or dered By: Niki Blades on 08-05-2023 MCHC (RBC) [Mass/Vol] 33.5 g/dL 32.0-35.0 [facility] MCV Auto (RBC) [Entitic vol] Ordered By: Niki Blades on 08-05-2023 MCV (RBC) [Entitic vol] 95.1 fL 80-100 [facility] Monocytes Auto (Bld) [#/Vol] Ordered By: Niki Blades on 08-05-2023 Monocytes (Bld) [#/Vol] 0.7 10*3/uL 0.0-0.8 [facility] Monocytes/100 WBC Auto (Bld) Ordered By: Niki Blades on 08-05-2023 Monocytes/100 WBC (Bld) 9.2 % . [facility] Neutrophils Auto (Bld) [#/Vo l]Ordered By: Niki Blades on 08-05-2023 Neutrophils (Bld) [#/Vol] 5.6 10*3/uL 1.8-7.7 [facility] Neutrophils/100 WBC Auto (Bl d)Ordered By: Niki Blades on 08-05-2023 Neutrophils/100 WBC (Bld) 77.1 % . [facility] No Panel InformationOrdered By: Niki Blades on 08-05-2023 Estimated GFR (CKD-EPI) 38.727 mL/Min [facility] Creatinine Clearance (Chem 38.09 [facility] Nucleated erythrocytes [Pres ence] in Blood by Automated countOrdered By: Niki Rms on 08-05-2023 Nucleated RBC Auto Ql (Bld) 0.4 /100{WBC} 0-0.5 [facility] Platelet mean volume Auto (B ld) [Entitic vol]Ordered By: Niki Blades on 08-05-2023 Platelet mean volume (Bld) [Entitic vol] 7.6 fL 6.3-10.7 [facility] Platelets Auto (Bld) [#/Vol] Ordered By: Niki Blades on 08-05-2023 Platelets (Bld) [#/Vol] 147 10*3/uL 150-450 [facility] [facility] Potassium [Moles/volume] in Serum or PlasmaOrdered By: Niki Blades on 08-05-2023 Potassium [Moles/Vol] 4.4 mmol/L 3.5-5.1 [facility] RBC Auto (Bld) [#/Vol]Ordere d By: Niki Blades on 08-05-2023 RBC (Bld) [#/Vol] 3.14 10*6/uL 3.60-5.00 [facility] Serum or plasma anion gap de terminationOrdered By: Niki Blades on 08-05-2023 Anion gap [Moles/Vol] 7.2 mmol/L 6.0-15.0 [facility] Sodium [Moles/volume] in Ser um or PlasmaOrdered By: Niki Blades on 08-05-2023 Sodium [Moles/Vol] 139 mmol/L 136-145 [facility] Urea nitrogen [Mass/volume] in Serum or PlasmaOrdered By: Niki Blades on 08-05-2023 Urea nitrogen [Mass/Vol] 25 mg/dL 7-25 [facility] WBC Auto (Bld) [#/Vol]Ordere d By: Niki Blades on 08-05-2023 WBC (Bld) [#/Vol] 7.3 10*3/uL 3.8-11.6 [facility] Activated partial thrombopla stin time (aPTT) in platelet poor plasma by coagulation aOrdered By: Cj Gamboa on 08-03-2023 aPTT Coag (PPP) [Time] 44.3 s 25.1-36.5 [facility] Comment on above: A hematocrit value g reater than 55% may lead to inaccurate results in coagulation testing. Patients having hematocrit values >55% require a special collection tube for coagulation studies. Please contact the laboratory at [phone] for redraw instructions. INR in Platelet poor plasma by Coagulation assayOrdered By: Cj Gamboa on 08-03-2023 INR Coag (PPP) [Relative time] 2.1 {INR} [facility] Comment on above: INR Therapeutic [...] with mechanical heart valves: 3 - 4.5 Prothrombin time (PT)Ordered By: Cj Gamboa on 08-03-2023 PT Coag (PPP) [Time] 24.8 s 9.0-12.9 [facility] Comment on above: A hematocrit value g reater than 55% may lead to inaccurate results in coagulation testing. Patients having hematocrit values >55% require a special collection tube for coagulation studies. Please contact the laboratory at [phone] for redraw instructions. Basophils Auto (Bld) [#/Vol] Ordered By: Niki Weeks on 07-20-2023 Basophils (Bld) [#/Vol] 0.0 10*3/uL 0.0-0.2 [facility] Basophils/100 WBC Auto (Bld) Ordered By: Niki Weeks on 07-20-2023 Basophils/100 WBC (Bld) 0.6 % . [facility] Bilirubin Test strip Ql (U)O rdered By: Niki Weeks on 07-20-2023 Bilirubin Ql (U) Negative Negative [facility] Calcium [Mass/volume] in Ser um or PlasmaOrdered By: Niki Blades on 07-20-2023 Calcium [Mass/Vol] 8.6 mg/dL 8.6-10.3 [facility] Carbon dioxide, total [Moles /volume] in Serum or PlasmaOrdered By: Niki Blades on 07-20-2023 CO2 [Moles/Vol] 26.3 mmol/L 21.0-31.0 [facility] Chloride [Moles/volume] in S akila or PlasmaOrdered By: Niki Blades on 07-20-2023 Chloride [Moles/Vol] 109 mmol/L 98-107 [facility] Color Auto (U)Ordered By: Simpson Blades on 07-20-2023 Color (U) Yellow Yellow [facility] Creatinine [Mass/volume] in Serum or PlasmaOrdered By: Niki Blades on 07-20-2023 Creatinine [Mass/Vol] 1.52 mg/dL 0.60-1.20 [facility] Eosinophils Auto (Bld) [#/Vo l]Ordered By: Niki Blades on 07-20-2023 Eosinophils (Bld) [#/Vol] 0.3 10*3/uL 0.0-0.45 [facility] Eosinophils/100 WBC Auto (Bl d)Ordered By: Niki Blades on 07-20-2023 Eosinophils/100 WBC (Bld) 4.9 % . [facility] Erythrocyte distribution wid th Auto (RBC) [Ratio]Ordered By: Niki Blades on 07-20-2023 Erythrocyte distribution width (RBC) [Ratio] 13.5 % 11.9-15.3 [facility] Glucose [Mass/volume] in Ser um or PlasmaOrdered By: Niki Blades on 07-20-2023 Glucose [Mass/Vol] 120 mg/dL 70-100 [facility] Comment on above: ADA recommended refe rence rangeRandom Glucose Reference Range is dependent on time and content of last meal. Glucose of more than 200 mg/dL in a nonstressed, ambulatory subject supports the diagnosis of Diabetes Mellitus. Hematocrit Auto (Bld) [Volum e fraction]Ordered By: Niki Weeks on 07-20-2023 Hematocrit (Bld) [Volume fraction] 38.3 % 34.0-46.4 [facility] Hemoglobin [Mass/volume] in BloodOrdered By: Niki Rms on 07-20-2023 Hemoglobin (Bld) [Mass/Vol] 12.6 g/dL 11.8-15.4 [facility] Ketones Auto test strip (U) [Mass/Vol]Ordered By: Niki Weeks on 07-20-2023 Ketones (U) [Mass/Vol] Negative Negative Fi [facility] Leukocytes [#/volume] correc tanesha for nucleated erythrocytes in Blood by Automated counOrdered By: Niki Weeks on 07-20-2023 WBC corrected for nucl RBC Auto (Bld) [#/Vol] 5.2 10*3/uL 3.8-11.6 [facility] Lymphocytes Auto (Bld) [#/Vo l]Ordered By: Niki Weeks on 07-20-2023 Lymphocytes (Bld) [#/Vol] 0.7 10*3/uL 1.00-4.8 [facility] Lymphocytes/100 WBC Auto (Bl d)Ordered By: Niki Rms on 07-20-2023 Lymphocytes/100 WBC (Bld) 13.8 % . [facility] MCH Auto (RBC) [Entitic mass ]Ordered By: Niki Rms on 07-20-2023 MCH (RBC) [Entitic mass] 30.9 pg 24.7-34.3 [facility] MCHC Auto (RBC) [Mass/Vol]Or dered By: Niki Blades on 07-20-2023 MCHC (RBC) [Mass/Vol] 33.0 g/dL 32.0-35.0 [facility] MCV Auto (RBC) [Entitic vol] Ordered By: Niki Blades on 07-20-2023 MCV (RBC) [Entitic vol] 93.7 fL 80-100 [facility] Monocytes Auto (Bld) [#/Vol] Ordered By: Niki Blades on 07-20-2023 Monocytes (Bld) [#/Vol] 0.4 10*3/uL 0.0-0.8 [facility] Monocytes/100 WBC Auto (Bld) Ordered By: Niki Weeks on 07-20-2023 Monocytes/100 WBC (Bld) 6.9 % . [facility] Neutrophils Auto (Bld) [#/Vo l]Ordered By: Niki Weeks on 07-20-2023 Neutrophils (Bld) [#/Vol] 3.8 10*3/uL 1.8-7.7 [facility] Neutrophils/100 WBC Auto (Bl d)Ordered By: Niki Weeks on 07-20-2023 Neutrophils/100 WBC (Bld) 73.8 % . [facility] Nitrite Test strip Ql (U)Ord ered By: Niki Weeks on 07-20-2023 Nitrite Ql (U) Negative Negative [facility] No Panel InformationOrdered By: Niki Weeks on 07-20-2023 Estimated GFR (CKD-EPI) 35.992 mL/Min [facility] Creatinine Clearance (Chem N/A [facility] Nucleated erythrocytes [Pres ence] in Blood by Automated countOrdered By: Niki Weeks on 07-20-2023 Nucleated RBC Auto Ql (Bld) 0.1 /100{WBC} 0-0.5 [facility] Platelet mean volume Auto (B ld) [Entitic vol]Ordered By: Niki Weeks on 07-20-2023 Platelet mean volume (Bld) [Entitic vol] 7.2 fL 6.3-10.7 [facility] Platelets Auto (Bld) [#/Vol] Ordered By: Niki Weeks on 07-20-2023 Platelets (Bld) [#/Vol] 194 10*3/uL 150-450 [facility] Potassium [Moles/volume] in Serum or PlasmaOrdered By: Niki Weeks on 07-20-2023 Potassium [Moles/Vol] 4.6 mmol/L 3.5-5.1 [facility] Protein Auto test strip (U) [Mass/Vol]Ordered By: Niki Weeks on 07-20-2023 Protein (U) [Mass/Vol] Negative Negative [facility] RBC Auto (Bld) [#/Vol]Ordere d By: Niki Weeks on 07-20-2023 RBC (Bld) [#/Vol] 4.09 10*6/uL 3.60-5.00 [facility] Serum or plasma anion gap de terminationOrdered By: Niki Weeks on 07-20-2023 Anion gap [Moles/Vol] 9.3 mmol/L 6.0-15.0 [facility] Sodium [Moles/volume] in Ser um or PlasmaOrdered By: Niki Weeks on 07-20-2023 Sodium [Moles/Vol] 140 mmol/L 136-145 [facility] Specific gravity Auto test s trip (U) [Rel density]Ordered By: Niki Weeks on 07-20-2023 Specific gravity (U) [Rel density] 1.021 1.001-1.03 0 [facility] Urea nitrogen [Mass/volume] in Serum or PlasmaOrdered By: Niki Weeks on 07-20-2023 Urea nitrogen [Mass/Vol] 30 mg/dL 7-25 [facility] Urine clarity by refractomet ry automatedOrdered By: Niki Weeks on 07-20-2023 Clarity Refractometry automated (U) Clear Clear [facility] Urine glucose measurement by automated test strip (mass/volume)Ordered By: Niki Weeks on 07-20-2023 Glucose Auto test strip (U) [Mass/Vol] Normal mg/dL Normal [facility] Urine hemoglobin detection b y automated test stripOrdered By: Niki Weeks on 07-20-2023 Hemoglobin Auto test strip Ql (U) Negative Negative [facility] Urine leukocyte esterase det ection by automated test stripOrdered By: Niki Weeks on 07-20-2023 Leukocyte esterase Auto test strip Ql (U) Negative Negative [facility] Urobilinogen Auto test strip (U) [Mass/Vol]Ordered By: Niki Weeks on 07-20-2023 Urobilinogen (U) [Mass/Vol] Normal mg/dL Normal [facility] WBC Auto (Bld) [#/Vol]Ordere d By: Niki Weeks on 07-20-2023 WBC (Bld) [#/Vol] 5.2 10*3/uL 3.8-11.6 [facility] pH Auto test strip (U)Ordere d By: Niki Weeks on 07-20-2023 pH (U) 5.5 [pH] 5.0-9.0 [facility] No Panel Informationon 06-16 BLANK _ [facility] Implant Date 05/22/2015 [facility] Model [address] [facility] PACEMAKER REMOTE CHECKon AV Delay Adaptive Paced Minimum (ms) 180 ms [facility] AV Delay Adaptive Sensed Minimum (ms) 150 ms [facility] AV Delay Adaptive Status DISABLED [facility] Battery Voltage (volts) 2.94 V [facility] Godfrey RA Pacing Amplitude (volts) 1.5 V [facility] Godfrey RA Pacing Polarity BI [facility] Godfrey RA Pacing Pulse Width (ms) 0.4 ms [facility] Godfrey RA Sensing Amplitude (mvolts) 0.3 mV [facility] Godfrey RA Sensing Blanking Period (ms) 150 ms [facility] RA Sensing Polarity BI [facility] RA Sensing Refractory Period (ms) Auto [facility] Godfrey RV Pacing Amplitude (volts) 2 V [facility] Godfrey RV Pacing Polarity BI [facility] Godfrey RV Pacing Pulse Width (ms) 0.4 ms [facility] Godfrey RV Sensing Amplitude (mvolts) 0.9 mV [facility] Godfrey RV Sensing Blanking Period (ms) 200 ms [facility] Godfrey RV Sensing Polarity BI [facility] Hysteresis Rate (bpm) DISABLED [facility] Lead1 Jorge KELLER [facility] Lead2 Jorge KELLER [facility] Location RV [facility] Location RA [facility] Lower Rate (bpm) 60 {beats}/min [facility] Max Sensor Rate (bmp) 130 {beats}/min [facility] Model [id number] COBOS [facility] PM-Device Jorge KELLER [facility] PM-Percent Pacing (A) 99.76 % [facility] PM-Percent Pacing (V) 0.11 % [facility] PM-PMT Intervention ENABLED [facility] PM-PVC Intervention ENABLED [facility] PM-Rate Modulation Acceleration Reaction 30 s [facility] PM-Rate Modulation ADL Rate (bpm) 100 {beats}/min [facility] PM-Rate Modulation Deceleration Exercise [facility] PM-Rate Modulation Threshold MediumLow [facility] RA Bipolar Impedance ohms 437 ohm [facility] RA Unipolar Impedance ohms 399 ohm [facility] RV Bipolar Impedance ohms 532 ohm [facility] RV Unipolar Impedance [address] [facility] Serial Number [id number] [facility] Serial Number [id number] [facility] Serial Number [id number] [facility] Thresh RA Capture Amplitude (volts) 0.5 V [facility] Thresh RA Capture Duration (ms) 0.4 ms [facility] Thresh RA Sensing Amplitude (mvolts) 2.25 mV [facility] Thresh RV Capture Amplitude (volts) 0.75 V [facility] Thresh RV Capture Duration (ms) 0.4 ms [facility] Thresh RV Sensing Amplitude (mvolts) 12.875 mV [facility] Tracking Rate (bpm) 130 {beats}/min [facility] Creatinine (Bld) [Mass/Vol]O rdered By: Broderick Howard on 06-04-2023 Creatinine [Mass/Vol] 1.6 mg/dL 0.6-1.3 [facility] Comment on above: ER/ESD physician is notified/shown all ISTAT results.Critical values may be confirmed by laboratory testing ifdeemed necessary by ER attending doctor. No Panel Informationon 02-24 BLANK _ [facility] Implant Date 05/22/2015 [facility] Model [address] [address] [facility] PACEMAKER REMOTE CHECKon AV Delay Adaptive Paced Minimum (ms) 180 ms [facility] AV Delay Adaptive Sensed Minimum (ms) 150 ms [facility] AV Delay Adaptive Status DISABLED [facility] Battery Voltage (volts) 2.95 V [facility] Godfrey RA Pacing Amplitude (volts) 1.5 V [facility] Godfrey RA Pacing Polarity BI [facility] Godfrey RA Pacing Pulse Width (ms) 0.4 ms [facility] Godfrey RA Sensing Amplitude (mvolts) 0.3 mV [facility] Godfrey RA Sensing Blanking Period (ms) 150 ms [facility] Godfrey RA Sensing Polarity BI [facility] Godfrey RA Sensing Refractory Period (ms) Auto [facility] Godfrey RV Pacing Amplitude (volts) 2 V [facility] Godfrey RV Pacing Polarity BI [facility] Godfrey RV Pacing Pulse Width (ms) 0.4 ms [facility] Godfrey RV Sensing Amplitude (mvolts) 0.9 mV [facility] Godfrey RV Sensing Blanking Period (ms) 200 ms [facility] Godfrey RV Sensing Polarity BI [facility] Hysteresis Rate (bpm) DISABLED [facility] Lead1 Mfg MDT [facility] Lead2 Mfg MDT [facility] Location RV [facility] Location RA [facility] Lower Rate (bpm) 60 {beats}/min [facility] Max Sensor Rate (bmp) 130 {beats}/min [facility] Model [id number] COBOS [facility] PM-Device Mfg MDT [facility] PM-Percent Pacing (A) 99.67 % [facility] PM-Percent Pacing (V) 0.2 % [facility] PM-PMT Intervention ENABLED [facility] PM-PVC Intervention ENABLED [facility] PM-Rate Modulation Acceleration Reaction 30 s [facility] PM-Rate Modulation ADL Rate (bpm) 100 {beats}/min [facility] PM-Rate Modulation Deceleration Exercise [facility] PM-Rate Modulation Threshold MediumLow [facility] RA Bipolar Impedance ohms 418 ohm [facility] RA Unipolar Impedance ohms 380 ohm [facility] RV Bipolar Impedance ohms 532 ohm [facility] RV Unipolar Impedance [address] [facility] Serial Number [id number] [facility] Serial Number [id number] [facility] Serial Number [id number] [facility] Thresh RA Capture Amplitude (volts) 0.5 V [facility] Thresh RA Capture Duration (ms) 0.4 ms [facility] Thresh RA Sensing Amplitude (mvolts) 2.25 mV [facility] Thresh RV Capture Amplitude (volts) 0.875 V [facility] Thresh RV Capture Duration (ms) 0.4 ms [facility] Thresh RV Sensing Amplitude (mvolts) 12.875 mV [facility] Tracking Rate (bpm) 130 {beats}/min [facility] No Panel Informationon 11-26 BLANK _ [facility] Implant Date 05/22/2015 [facility] Model [address] [employer] [address] [facility] PACEMAKER REMOTE CHECKon AV Delay Adaptive Paced Minimum (ms) 180 ms [facility] AV Delay Adaptive Sensed Minimum (ms) 150 ms [facility] AV Delay Adaptive Status DISABLED [facility] Battery Voltage (volts) 2.96 V C [facility] Godfrey RA Pacing Amplitude (volts) 1.5 V [facility] Godfrey RA Pacing Polarity BI [facility] Godfrey RA Pacing Pulse Width (ms) 0.4 ms [facility] Godfrey RA Sensing Amplitude (mvolts) 0.3 mV [facility] Godfrey RA Sensing Blanking Period (ms) 150 ms [facility] Godfrey RA Sensing Polarity BI [facility] Godfrey RA Sensing Refractory Period (ms) Auto [facility] Godfrey RV Pacing Amplitude (volts) 2 V [facility] Godfrey RV Pacing Polarity BI [facility] Godfrey RV Pacing Pulse Width (ms) 0.4 ms [facility] Godfrey RV Sensing Amplitude (mvolts) 0.9 mV [facility] Godfrey RV Sensing Blanking Period (ms) 200 ms [facility] Godfrey RV Sensing Polarity BI [facility] Hysteresis Rate (bpm) DISABLED [facility] Lead1 Mfg MDT [facility] Lead2 Mfg MDT [facility] Location RV [facility] Location RA [facility] Lower Rate (bpm) 60 {beats}/min [facility] Max Sensor Rate (bmp) 130 {beats}/min [facility] Model [id number] COBOS [facility] PM-Device Mfg ARIANNA [facility] PM-Percent Pacing (A) 99.43 % [facility] PM-Percent Pacing (V) 0.17 % [facility] PM-PMT Intervention ENABLED [facility] PM-PVC Intervention ENABLED [facility] PM-Rate Modulation Acceleration Reaction 30 s [facility] PM-Rate Modulation ADL Rate (bpm) 100 {beats}/min [facility] PM-Rate Modulation Deceleration Exercise [facility] PM-Rate Modulation Threshold MediumLow [facility] RA Bipolar Impedance ohms 437 ohm [facility] RA Unipolar Impedance ohms 399 ohm [facility] RV Bipolar Impedance ohms 532 ohm [facility] RV Unipolar Impedance [address] [facility] Serial Number [id number] [facility] Serial Number [id number] [facility] Serial Number [id number] [facility] Thresh RA Capture Amplitude (volts) 0.5 V [facility] Thresh RA Capture Duration (ms) 0.4 ms [facility] Thresh RA Sensing Amplitude (mvolts) 1.875 mV [facility] Thresh RV Capture Amplitude (volts) 0.75 V [facility] Thresh RV Capture Duration (ms) 0.4 ms [facility] Thresh RV Sensing Amplitude (mvolts) 11.75 mV [facility] Tracking Rate (bpm) 130 {beats}/min [facility] No Panel Informationon 08-26 BLANK _ [facility] Implant Date 05/22/2015 [facility] Model [address] [employer] [address] [facility] PACEMAKER REMOTE CHECKon AV Delay Adaptive Paced Minimum (ms) 180 ms [facility] AV Delay Adaptive Sensed Minimum (ms) 150 ms [facility] AV Delay Adaptive Status DISABLED [facility] Battery Voltage (volts) 2.96 V C [facility] Godfrey RA Pacing Amplitude (volts) 1.5 V [facility] Godfrey RA Pacing Polarity BI [facility] Godfrey RA Pacing Pulse Width (ms) 0.4 ms [facility] Godfrey RA Sensing Amplitude (mvolts) 0.3 mV [facility] Godfrey RA Sensing Blanking Period (ms) 150 ms [facility] Godfrey RA Sensing Polarity BI [facility] Godfrey RA Sensing Refractory Period (ms) Auto [facility] Godfrey RV Pacing Amplitude (volts) 2 V [facility] Godfrey RV Pacing Polarity BI [facility] Godfrey RV Pacing Pulse Width (ms) 0.4 ms [facility] Godfrey RV Sensing Amplitude (mvolts) 0.9 mV [facility] Godfrey RV Sensing Blanking Period (ms) 200 ms [facility] Godfrey RV Sensing Polarity BI [facility] Hysteresis Rate (bpm) DISABLED [facility] Lead1 Cristineg ARIANNA [facility] Lead2 Mfg ARIANNA [facility] Location RV [facility] Location RA [facility] Lower Rate (bpm) 60 {beats}/min [facility] Max Sensor Rate (bmp) 130 {beats}/min [facility] Model [id number] COBOS [facility] PM-Device Jorge KELLER [facility] PM-Percent Pacing (A) 99.6 % [facility] PM-Percent Pacing (V) 0.24 % [facility] PM-PMT Intervention ENABLED [facility] PM-PVC Intervention ENABLED [facility] PM-Rate Modulation Acceleration Reaction 30 s [facility] PM-Rate Modulation ADL Rate (bpm) 100 {beats}/min [facility] PM-Rate Modulation Deceleration Exercise [facility] PM-Rate Modulation Threshold MediumLow [facility] RA Bipolar Impedance ohms 437 ohm [facility] RA Unipolar Impedance ohms 399 ohm [facility] RV Bipolar Impedance ohms 532 ohm [facility] RV Unipolar Impedance [address] [facility] Serial Number [id number] [facility] Serial Number [id number] [facility] Serial Number [id number] [facility] Thresh RA Capture Amplitude (volts) 0.5 V [facility] Thresh RA Capture Duration (ms) 0.4 ms [facility] Thresh RA Sensing Amplitude (mvolts) 2.5 mV [facility] Thresh RV Capture Amplitude (volts) 0.75 V [facility] Thresh RV Capture Duration (ms) 0.4 ms [facility] Thresh RV Sensing Amplitude (mvolts) 12.125 mV [facility] Tracking Rate (bpm) 130 {beats}/min [facility] US KIDNEYS BLADDERon 022 US KIDNEYS BLADDER EXAMINATION: US [facility] BLADDER HISTORY: Chronic kidney disease due [...] EBEN BABCOCK Date: 2022-08-10 19:30 Normal [facility] UA RANDOM W/MICROSCOPICon BACTERIA NONE SEEN Normal NONE SEEN [facility] Comment on above: Performed By: #### U AMIC #### [facility] [address] [address] [address] Leah Felipe Bilirubin Ql (U) Negative Normal NEGATIVE [facility] Comment on above: Performed By: #### U AMIC #### [facility] [address] [address] [address] Leah Felipe CAST NONE SEEN Normal NONE SEEN [facility] Comment on above: Performed By: #### U AMIC #### [facility] [address] [address] [address] Leah Felipe Clarity (U) CLEAR Normal CLEAR [facility] Comment on above: Performed By: #### U AMIC #### [facility] [address] [place] [address] Dr. Leah Felipe Color (U) LT. YELLOW Normal YELLOW [facility] Comment on above: Performed By: #### U AMIC #### [facility] [address] [place] [address] Dr. Leah Felipe Crystals LM Nom (Urine sed) NONE SEEN Normal NONE SEEN [facility] Comment on above: Performed By: #### U AMIC #### [facility] [address] [place] [address] Dr. Leah Felipe Epithelial cells LM Ql (Urine sed) FEW Abnormal NONE SEEN /RARE [facility] [facility] Comment on above: Performed By: #### U AMIC #### [facility] [address] [place] [address] Dr. Leah Felipe Glucose Ql (U) Negative Normal NEGATIVE [facility] Comment on above: Performed By: #### U AMIC #### [facility] [address] [place] [address] Dr. Leah Felipe Hemoglobin Ql (U) Negative Normal NEGATIVE The [facility] Comment on above: Performed By: #### U AMIC #### [facility] [address] [place] [address] Dr. Leah Felipe Ketones Ql (U) Negative Normal NEGATIVE The [facility] Comment on above: Performed By: #### U AMIC #### [facility] [address] [place] [address] Dr. Leah Felipe LEUKOCYTES Negative Normal NEGATIVE The [facility] Comment on above: Performed By: #### U AMIC #### [facility] [address] [place] [address] Dr. Leah Felipe MUCOUS NONE SEEN Normal NONE SEEN [facility] Comment on above: Performed By: #### U AMIC #### [facility] [address] [address] [address] Leah Felipe Nitrite Ql (U) Negative Normal NEGATIVE The [facility] Comment on above: Performed By: #### U AMIC #### [facility] [address] [place] [address] Dr. Leah Felipe pH (U) 6.0 [pH] Normal 5-9 The [facility] Comment on above: Performed By: #### U AMIC #### [facility] [address] [place] [address] Dr. Leah Felipe RBC NONE SEEN Abnormal 0-2 The [facility] Comment on above: Performed By: #### U AMIC #### [facility] [address] [place] [address] Dr. Leah Felipe SPEC GRAVITY 1.025 Normal 1.005-<=1. 025 The [facility] Comment on above: Performed By: #### U AMIC #### [facility] [address] [place] [address] Dr. Leah Felipe UA PROTEIN Negative Normal NEGATIVE/ TRACE The [facility] Comment on above: Performed By: #### U AMIC #### [facility] [address] [place] [address] Dr. Leah Felipe Urobilinogen Qn (U) 0.2 {Lin'U}/dL Normal 0.2 - 1. 0 The [facility] Comment on above: Performed By: #### U AMIC #### [facility] [address] [place] [address] Dr. Leah Felipe WBC 0-2 Abnormal NONE SEEN The [facility] Comment on above: Performed By: #### U AMIC #### [facility] [address] [place] [address] Dr. Leah Felipe URINE T PROTEIN CREAT RATIOo n 08-03-2022 Protein (U) [Mass/Vol] 30.2 mg/dL Critically high <=12.0 [facility] Comment on above: Performed By: #### U RTPCR #### [facility] [address] [place] [address] Dr. Leah Felipe UR PROT CREAT RAT 0.19 Normal [facility] Comment on above: Performed By: #### U RTPCR #### [facility] [address] [place] [address] Dr. Leah Felipe URINE CREAT 159.67 mg/dL Normal 20.00-300. 00 [facility] Comment on above: Performed By: #### U RTPCR #### [facility] [address] [place] [address] Dr. Leah Felipe CBC AUTO DIFFon 07-31-2022 BASO # 0.0 103/ul Normal 0.0-0.1 [facility] Comment on above: Performed By: #### C BC #### [facility] [address] [place] [address] Dr. Leah Felipe Basophils/100 WBC (Bld) 0.6 % Normal 0.2-2.0 [facility] Comment on above: Performed By: #### C BC #### [facility] [address] [place] [address] Dr. Leah Felipe EO # 0.3 103/ul Normal 0.0-0.7 [facility] Comment on above: Performed By: #### C BC #### [facility] [address] [place] [address] Dr. Leah Felipe Eosinophils/100 WBC (Bld) 5.5 % Normal 0.9-7.0 [facility] Comment on above: Performed By: #### C BC #### [facility] [address] [place] [address] Dr. Leah Felipe Erythrocyte distribution width (RBC) [Ratio] 12.5 % Normal 11.0-15.0 [facility] Comment on above: Performed By: #### C BC #### [facility] [address] [place] [address] Dr. Leah Felipe Hematocrit (Bld) [Volume fraction] 39.2 % Normal 36.0-48.0 [facility] Comment on above: Performed By: #### C BC #### [facility] [address] [place] [address] Dr. Leah Felipe Hemoglobin (Bld) [Mass/Vol] 12.5 g/dL Normal 12.0-16.0 [facility] Comment on above: Performed By: #### C BC #### [facility] [address] [place] [address] Dr. Leah Felipe IG # 0.01 10e3/ul Normal 0.00-0.03 [facility] Comment on above: Performed By: #### C BC #### [facility] [address] [place] [address] Dr. Leah Felipe IG % 0.2 % Normal 0.0-0.5 [facility] Comment on above: Performed By: #### C BC #### [facility] [address] [place] [address] Dr. Leah Felipe LYMPH # 0.8 103/ul Critically low 1.2-3.8 The [facility] Comment on above: Performed By: #### C BC #### [facility] [address] [place] [address] Dr. Leah Felipe Lymphocytes/100 WBC (Bld) 16.0 % Critically low 20.5-60.0 [facility] Comment on above: Performed By: #### C BC #### [facility] [address] [place] [address] Dr. Leah Felipe MANUAL DIFF REQ NO Normal [facility] Comment on above: Performed By: #### C BC #### [facility] [address] [place] [address] Dr. Leah Felipe MCH (RBC) [Entitic mass] 30.9 pg Normal 26.7-34.0 [facility] Comment on above: Performed By: #### C BC #### [facility] [address] [place] [address] Dr. Leah Felipe MCHC (RBC) [Mass/Vol] 31.9 g/dL Normal 29.9-35.2 [facility] Comment on above: Performed By: #### C BC #### [facility] [address] [place] [address] Dr. Leah Felipe MCV (RBC) [Entitic vol] 97.0 fL Normal 81.0-99.0 [facility] Comment on above: Performed By: #### C BC #### [facility] [address] [place] [address] Dr. Leah Felipe MONO # 0.4 103/ul Normal 0.3-0.8 [facility] Comment on above: Performed By: #### C BC #### [facility] [address] [place] [address] Dr. Leah Felipe Monocytes/100 WBC (Bld) 8.7 % Normal 1.7-12.0 [facility] Comment on above: Performed By: #### C BC #### [facility] [address] [place] [address] Dr. Leah Felipe NEUT # 3.4 103/ul Normal 1.4-6.5 [facility] Comment on above: Performed By: #### C BC #### [facility] [address] [place] [address] Dr. eLah Felipe Neutrophils/100 WBC (Bld) 69.0 % Normal 43.0-75.0 [facility] Comment on above: Performed By: #### C BC #### [facility] [address] [place] [address] Dr. Leah Felipe Platelet mean volume (Bld) [Entitic vol] 9.1 fL Critically low 9.5-13.5 [facility] Comment on above: Performed By: #### C BC #### [facility] [address] [place] [address] Dr. Leah Felipe PLT 196 103/ul Normal 150-450 [facility] Comment on above: Performed By: #### C BC #### [facility] [address] [place] [address] Dr. Leah Felipe RBC 4.04 106/ul Critically low 4.20-5.40 [facility] Comment on above: Performed By: #### C BC #### [facility] [address] [place] [address] Dr. Leah Felipe WBC 5.0 103/ul Normal 4.0-11.0 [facility] Comment on above: Performed By: #### C BC #### [facility] [address] [address] [address] Leah Felipe PROF CHEM 8 (BAS METB)on Anion gap [Moles/Vol] 9.8 mmol/L Normal [facility] Comment on above: Performed By: #### B MP, TSH #### [facility] [address] [place] [address] Dr. Leah Felipe Calcium [Mass/Vol] 8.2 mg/dL Critically low 8.5-10.1 Th [facility] Comment on above: Performed By: #### B MP, TSH #### [facility] [address] [place] [address] Dr. Leah Felipe Chloride [Moles/Vol] 107 mmol/L Normal 98-107 [facility] Comment on above: Performed By: #### B MP, TSH #### [facility] [address] [place] [address] Dr. Leah Felipe CO2 [Moles/Vol] 26.4 mmol/L Normal 21.0-32.0 [facility] Comment on above: Performed By: #### B MP, TSH #### [facility] [address] [place] [address] Dr. Leah Felipe Creatinine [Mass/Vol] 1.53 mg/dL Critically high 0.55-1.02 [facility] Comment on above: Performed By: #### B MP, TSH #### [facility] [address] [place] [address] Dr. Leah Felipe EGFR-AF NAURUAN 40 mL/min/1.73m2 Critically low >=60 [facility] Comment on above: Performed By: #### B MP, TSH #### [facility] [address] [place] [address] Dr. Leah Felipe EGFR-NON AF NAURUAN 33 mL/min/1.73m2 Critically low >=60 [facility] Comment on above: Performed By: #### B MP, TSH #### [facility] [address] [place] [address] Dr. Leah Felipe Glucose [Mass/Vol] 108 mg/dL Critically high 74-106 T [facility] Comment on above: Performed By: #### B MP, TSH #### [facility] [address] [place] [address] Dr. Leah Felipe Potassium [Moles/Vol] 4.2 mmol/L Normal 3.5-5.1 [facility] Comment on above: Performed By: #### B VENANCIO, TSH #### [facility] [address] [place] [address] Dr. Leah Felipe Sodium [Moles/Vol] 139 mmol/L Normal 136-145 [facility] Comment on above: Performed By: #### B VENANCIO, TSH #### [facility] [address] [place] [address] Dr. Leah Felipe Urea nitrogen [Mass/Vol] 26.0 mg/dL Critically high 7.0-18.0 [facility] Comment on above: Performed By: #### B VENANCIO, TSH #### [facility] [address] [place] [address] Dr. Leah Felipe Urea nitrogen/Creatinine [Mass ratio] 17.0 mg/mg Normal [facility] Comment on above: Performed By: #### B VENANCIO, TSH #### [facility] [address] [place] [address] Dr. Leah Felipe TSHon 07-31-2022 TSH 1.650 uIU/mL Normal 0.358-3.74 0 [facility] Comment on above: Performed By: #### B VENANCIO, TSH #### [facility] [address] [place] [address] Dr. Leah Felipe VITAMIN B12on 07-31-2022 Cobalamin (Vitamin B12) [Mass/Vol] 378.0 pg/mL Normal 193.0-986. 0 [facility] Comment on above: Performed By: #### V ITB12 #### [facility] [address] [place] [address] Dr. Leah Felipe MG MAMM SCREEN 3D FAVIOLA CADon 07-29-2022 MG MAMM SCREEN 3D FAVIOLA CAD Patient: CASSI RODRIGEZMavis Exam Date: 07/29/2022 : 1950 Gender:F Ordering : DR BRODERICK HOWARD D.O. Admission #: [id number] Family : Order #: [id number] CLICK HERE TO VIEW EXAM RADIOLOGY REPORT [...] pancreatic cancer at age 64. LOCATION: The [facility] BREAST COMPOSITION: Heterogeneously dense,which may [...] MD on 07/29/2022 at 11:19 Normal [facility] CBC panel Auto (Bld)on 07-23 Erythrocyte distribution width (RBC) [Ratio] 12.5 % Normal 11.5-15.0 [facility] Comment on above: Order Comment: Warren almazan Type: BLOOD SPECIMEN Ordering Facility: [facility] Address: [address] [id number] Performed By: #### 5 8410-2 #### [facility] CLIA [id number] [address] [place] [address] [place] Hematocrit (Bld) [Volume fraction] 39.3 % Normal 36.0-46.0 [facility] Comment on above: Order Comment: Warren almazan Type: BLOOD SPECIMEN Ordering Facility: [facility] Address: [address] [id number] Performed By: #### 5 8410-2 #### [facility] [place] [id number] [place] Hemoglobin (Bld) [Mass/Vol] 12.5 g/dL Normal 11.5-15.5 [facility] Comment on above: Order Comment: Speci men Type: BLOOD SPECIMEN Ordering Facility: [facility] Address: [address] [place], [place] [id number] Performed By: #### 5 8410-2 #### [facility] [place] [id number] [place] MCH (RBC) [Entitic mass] 31.3 pg Normal 26.0-34.0 [facility] Comment on above: Order Comment: Speci men Type: BLOOD SPECIMEN Ordering Facility: [facility] Address: [address] [place] [address] Performed By: #### 5 8410-2 #### [facility] [place] [id number] [place] MCHC (RBC) [Mass/Vol] 31.8 g/dL Normal 30.5-36.0 [facility] Comment on above: Order Comment: Speci men Type: BLOOD SPECIMEN Ordering Facility: [facility] Address: [address] [place] [address] Performed By: #### 5 8410-2 #### [facility] [place] [id number] [place] MCV (RBC) [Entitic vol] 98.5 fL Normal 80.0-100.0 [facility] Comment on above: Order Comment: Speci men Type: BLOOD SPECIMEN Ordering Facility: [facility] Address: [address] [place], [place] [id number] Performed By: #### 5 8410-2 #### [facility] [place] [id number] [address] [place] [address] [place] Nucleated RBC (Bld) [#/Vol] 10*3/uL Normal <0.01 [facility] Comment on above: Order Comment: Speci men Type: BLOOD SPECIMEN Ordering Facility: [facility] Address: [address] [place], [place] [address] Performed By: #### 5 8410-2 #### [facility] CLIA [id number] [place] [address] [place] Platelet mean volume (Bld) [Entitic vol] 9.5 fL Normal 9.0-12.7 [facility] Comment on above: Order Comment: Speci men Type: BLOOD SPECIMEN Ordering Facility: [facility] Address: [address] [place], [place] [id number] Performed By: #### 5 8410-2 #### [facility] CLIA [id number] [address] [place] [address] [place] Platelets (Bld) [#/Vol] 214 10*3/uL Normal 150-400 [facility] Comment on above: Order Comment: Speci men Type: BLOOD SPECIMEN Ordering Facility: [facility] Address: [address] [place], [place] [address] Performed By: #### 5 8410-2 #### [facility] [place] [id number] [address] [place] [address] [place] RBC (Bld) [#/Vol] 3.99 10*6/uL Normal 3.90-5.20 [facility] Comment on above: Order Comment: Speci men Type: BLOOD SPECIMEN Ordering Facility: [facility] Address: [address] [place], [place] [address] Performed By: #### 5 8410-2 #### [facility] CLIA [id number] [address] [place] [address] [place] WBC (Bld) [#/Vol] 5.85 10*3/uL Normal 3.70-11.00 [facility] Comment on above: Order Comment: Speci men Type: BLOOD SPECIMEN Ordering Facility: [facility] Address: [address] [place], [place] [id number] Performed By: #### 5 8410-2 #### [facility] CLIA [id number] [address] [place] [address] [place] Erythrocyte distribution width (RBC) [Ratio] 12.5 % 11.5 - 15.0 % [facility] Hematocrit (Bld) [Volume fraction] 39.3 % 36.0 - 46.0 % [facility] Hemoglobin (Bld) [Mass/Vol] 12.5 g/dL 11.5 - 15.5 g/dL [facility] MCH (RBC) [Entitic mass] 31.3 pg 26.0 - 34.0 pg [facility] MCHC (RBC) [Mass/Vol] 31.8 g/dL 30.5 - 36.0 g/dL [facility] MCV (RBC) [Entitic vol] 98.5 fL 80.0 - 100.0 fL [facility] Nucleated RBC (Bld) [#/Vol] <0.01 k/uL [facility] Platelet mean volume (Bld) [Entitic vol] 9.5 fL 9.0 - 12.7 fL [facility] Platelets (Bld) [#/Vol] 214 10*3/uL 150 - 400 k/uL [facility] RBC (Bld) [#/Vol] 3.99 10*6/uL 3.90 - 5.20 m/uL [facility] WBC (Bld) [#/Vol] 5.85 10*3/uL 3.70 - 11.00 k/uL [facility] TSH BLDon 07-23-2022 TSH Qn 1.890 m[IU]/L 0.270 - 4.200 mIU/L [facility] TSH SerPl-aCncon 07-23-2022 TSH Qn 1.890 m[IU]/L Normal 0.270-4.20 0 [facility] Comment on above: Order Comment: Speci men Type: BLOOD SPECIMEN Ordering Facility: [facility] Address: [address] [place] [address] Performed By: #### 3 016-3 #### [facility] CLIA [id number] [address] [place] [address] [place] Vital Signs Date Time Vital Sign Value Performing Clinician Facility 07-02-2025 14:58-0400 Body height 157.48 cm Broderick Ball DO Work Phone: [facility] 07-02-2025 14:58-0400 Body mass index (BMI) [Ratio] 34.7 kg/m2 Broderick Ball DO Work Phone: [facility] 07-02-2025 14:58-0400 Body weight 86.18 kg Broderick Ball DO Work Phone: [facility] 07-02-2025 14:58-0400 Diastolic blood pressure 70 mm[Hg] Broderick Ball DO Work Phone: [facility] 07-02-2025 14:58-0400 Heart rate 82 /min Broderick Ball DO Work Phone: [facility] 07-02-2025 14:58-0400 Respiratory rate 12 /min Broderick Ball DO Work Phone: [facility] 07-02-2025 14:58-0400 Systolic blood pressure 117 mm[Hg] Broderick Ball DO Work Phone: [facility] 05-21-2025 08:03-0400 Body mass index (BMI) [Ratio] 35.19 kg/m2 Elian Doher DO Work Phone: [facility] 05-21-2025 08:03-0400 Body weight 87.27 kg Elian Doher DO Work Phone: [facility] 05-21-2025 08:03-0400 Diastolic blood pressure 60 mm[Hg] Elian Doher DO Work Phone: [facility] 05-21-2025 08:03-0400 Systolic blood pressure 123 mm[Hg] Elian Doher DO Work Phone: [facility] 04-10-2025 11:10-0400 Body height 157.5 cm Randa Reilly MD Work Phone: [facility] 04-10-2025 11:10-0400 Body mass index (BMI) [Ratio] 34.52 kg/m2 Randa Reilly MD Work Phone: [facility] 04-10-2025 11:10-0400 Body weight 85.6 kg Randa Reilly MD Work Phone: [facility] 04-10-2025 11:10-0400 Diastolic blood pressure 72 mm[Hg] Randa Reilly MD Work Phone: [facility] 04-10-2025 11:10-0400 Heart rate 86 /min Randa Reilly MD Work Phone: [facility] 04-10-2025 11:10-0400 Systolic blood pressure 109 mm[Hg] Randa Reilly MD Work Phone: [facility] 02-22-2025 10:40-0400 Body height 157.48 cm Broderick Ball DO Work Phone: [facility] 02-22-2025 10:40-0400 Body mass index (BMI) [Ratio] 36.1 kg/m2 Broderick Ball DO Work Phone: [facility] 02-22-2025 10:40-0400 Body temperature 96.9 [degF] Broderick Ball DO Work Phone: [facility] 02-22-2025 10:40-0400 Body weight 89.58 kg Broderick Ball DO Work Phone: [facility] 02-22-2025 10:40-0400 Diastolic blood pressure 55 mm[Hg] Broderick Ball DO Work Phone: [facility] 02-22-2025 10:40-0400 Heart rate 76 /min Broderick Ball DO Work Phone: [facility] 02-22-2025 10:40-0400 Respiratory rate 16 /min Broderick Ball DO Work Phone: [facility] 02-22-2025 10:40-0400 SaO2% (BldA) [Mass fraction] 98 % Broderick Ball DO Work Phone: [facility] 02-22-2025 10:40-0400 Systolic blood pressure 133 mm[Hg] Broderick Ball DO Work Phone: [facility] 02-21-2025 13:53-0400 Body height 157.48 cm Broderick Ball DO Work Phone: [facility] 02-21-2025 13:53-0400 Body mass index (BMI) [Ratio] 34.5 kg/m2 Broderick Ball DO Work Phone: [facility] 02-21-2025 13:53-0400 Body weight 85.72 kg Broderick Ball DO Work Phone: [facility] 02-21-2025 13:53-0400 Diastolic blood pressure 72 mm[Hg] Broderick Ball DO Work Phone: [facility] 02-21-2025 13:53-0400 Heart rate 75 /min Broderick Ball DO Work Phone: [facility] 02-21-2025 13:53-0400 SaO2% (BldA) [Mass fraction] 100 % Broderick Ball DO Work Phone: [facility] 02-21-2025 13:53-0400 Systolic blood pressure 122 mm[Hg] Broderick Ball DO Work Phone: [facility] 01-05-2025 11:51-0500 Body height 157.5 cm Svitlana Mayfield DIRECTOR OF FINANCE.[employer]SI[employer]ANT TE[employer] Work Phone: [facility] 01-05-2025 11:51-0500 Body mass index (BMI) [Ratio] 34.96 kg/m2 Svitlana Mayfield DIRECTOR OF FINANCE.[employer]SIST[employer] TE[employer] Work Phone: [facility] 01-05-2025 11:51-0500 Body weight 86.7 kg Svitlana Mayfield DIRECTOR OF FINANCE.ASSISTANT TEACHER [employer] Work Phone: [facility] 01-05-2025 11:51-0500 Diastolic blood pressure 61 mm[Hg] Svitlana Mayfield DIRECTOR OF FINANCE.ASSISTANT TEACHER [employer] Work Phone: [facility] 01-05-2025 11:51-0500 Heart rate 86 /min Svitlana Mayfield APRN.ASSISTANT TEACHER [employer]IMARY Work Phone: [facility] 01-05-2025 11:51-0500 Systolic blood pressure 127 mm[Hg] Svitlana Mayfield APRN.ASSISTANT TEACHER PRIMARY Work Phone: [facility] 01-04-2025 13:55-0500 Body height 157.5 cm Alejandro Villar MD, PhD Work Phone: [facility] 01-04-2025 13:55-0500 Body mass index (BMI) [Ratio] 35.08 kg/m2 Alejandro Villar MD, PhD Work Phone: [facility] 01-04-2025 13:55-0500 Body weight 87 kg Alejandro Villar MD, PhD Work Phone: [facility] 01-04-2025 13:55-0500 Diastolic blood pressure 61 mm[Hg] Alejandro Villar MD, PhD Work Phone: [facility] 01-04-2025 13:55-0500 Heart rate 86 /min Alejandro Villar MD, PhD Work Phone: [facility] 01-04-2025 13:55-0500 Systolic blood pressure 127 mm[Hg] Alejandro Villar MD, PhD Work Phone: [facility] 12-08-2024 10:08-0500 Body height 157.48 cm Broderick Ball DO Work Phone: [facility] 12-08-2024 10:08-0500 Body mass index (BMI) [Ratio] 33.1 kg/m2 Broderick Ball DO Work Phone: [facility] 12-08-2024 10:08-0500 Body weight 82.15 kg Broderick Ball DO Work Phone: [facility] 12-08-2024 10:08-0500 Diastolic blood pressure 82 mm[Hg] Broderick Ball DO Work Phone: [facility] 12-08-2024 10:08-0500 Heart rate 73 /min Broderick Ball DO Work Phone: [facility] 12-08-2024 10:08-0500 Respiratory rate 12 /min Broderick Ball DO Work Phone: [facility] 12-08-2024 10:08-0500 Systolic blood pressure 141 mm[Hg] Broderick Ball DO Work Phone: [facility] 11-29-2024 13:43-0500 Body height 157.5 cm Aftab Itzkowitz DO Work Phone: [facility] 11-29-2024 13:43-0500 Body mass index (BMI) [Ratio] 35.3 kg/m2 Aftab Itzkowitz DO Work Phone: [facility] 11-29-2024 13:43-0500 Body weight 87.54 kg Aftab Itzkowitz DO Work Phone: [facility] 11-29-2024 13:43-0500 Diastolic blood pressure 85 mm[Hg] Aftab Itzkowitz DO Work Phone: [facility] 11-29-2024 13:43-0500 Systolic blood pressure 125 mm[Hg] Aftab Itzkowitz DO Work Phone: [facility] 11-28-2024 11:04-0500 Body height 157.48 cm Broderick Ball DO Work Phone: [facility] 11-28-2024 11:04-0500 Body mass index (BMI) [Ratio] 34.2 kg/m2 Broderick Ball DO Work Phone: [facility] 11-28-2024 11:04-0500 Body weight 84.93 kg Broderick Ball DO Work Phone: [facility] 11-28-2024 11:04-0500 Diastolic blood pressure 73 mm[Hg] Broderick Ball DO Work Phone: [facility] 11-28-2024 11:04-0500 Heart rate 83 /min Broderick Ball DO Work Phone: [facility] 11-28-2024 11:04-0500 Respiratory rate 12 /min Broderick Ball DO Work Phone: [facility] 11-28-2024 11:04-0500 Systolic blood pressure 117 mm[Hg] Broderick Ball DO Work Phone: [facility] 11-24-2024 16:28-0500 Diastolic blood pressure 67 mm[Hg] Broderick Ball DO Work Phone: [facility] 11-24-2024 16:28-0500 Heart rate 60 /min Broderick Ball DO Work Phone: [facility] 11-24-2024 16:28-0500 Respiratory rate 18 /min Broderick Ball DO Work Phone: [facility] 11-24-2024 16:28-0500 SaO2% (BldA) [Mass fraction] 99 % Broderick Ball DO Work Phone: [facility] 11-24-2024 16:28-0500 Systolic blood pressure 152 mm[Hg] Broderick Ball DO Work Phone: [facility] 11-24-2024 13:52-0500 Body height 157.48 cm Broderick Ball DO Work Phone: [facility] 11-24-2024 13:52-0500 Body temperature 97.6 [degF] Broderick Ball DO Work Phone: [facility] 11-24-2024 13:52-0500 Body weight 89 kg Broderick Ball DO Work Phone: [facility] 11-24-2024 11:16-0500 Body height 157.48 cm [facility] 11-24-2024 11:16-0500 Body mass index (BMI) [Ratio] 34.2 kg/m2 [facility] 11-24-2024 11:16-0500 Body weight 84.82 kg [facility] 11-24-2024 11:16-0500 Diastolic blood pressure 75 mm[Hg] [facility] 01-10-2025 11:16-0500 Heart rate 82 /min [facility] 11-24-2024 11:16-0500 Respiratory rate 12 /min [facility] 11-24-2024 11:16-0500 Systolic blood pressure 133 mm[Hg] [facility] 11-17-2024 13:45-0500 Body height 157.48 cm [facility] 11-17-2024 13:45-0500 Body mass index (BMI) [Ratio] 34.4 kg/m2 [facility] 11-17-2024 13:45-0500 Body weight 85.5 kg [facility] 11-17-2024 13:45-0500 Diastolic blood pressure 76 mm[Hg] [facility] 11-17-2024 13:45-0500 Heart rate 68 /min [facility] 11-17-2024 13:45-0500 Respiratory rate 12 /min [facility] 11-17-2024 13:45-0500 Systolic blood pressure 129 mm[Hg] [facility] 11-03-2024 15:00-0500 Hourly Rounding Shashi Rhiew [facility] 11-03-2024 15:00-0500 Promise to Return Shashi Rhiew [facility] 11-03-2024 14:00-0500 Hourly Rounding Shashi Rhiew [facility] 11-03-2024 14:00-0500 Promise to Return Shashi Rhiew [facility] 11-03-2024 13:30-0500 Hourly Rounding Shashi Rhiew [facility] 11-03-2024 13:00-0500 Promise to Return Shashi Rhiew [facility] 11-03-2024 11:27-0500 Heart rate 58 /min Shashi Rhiew [facility] 11-03-2024 11:27-0500 SaO2% (BldA) [Mass fraction] 95 % Shashi Rhiew [facility] 11-03-2024 11:27-0500 Respiratory rate 16 /min Shashi Rhiew [facility] 11-03-2024 11:27-0500 Diastolic blood pressure 68 mm[Hg] Shashi Rhiew [facility] 11-03-2024 11:27-0500 Mean blood pressure 83 mm[Hg] Shashi Rhiew [facility] 11-03-2024 11:27-0500 Systolic blood pressure 113 mm[Hg] Shashi Rhiew [facility] 11-03-2024 11:27-0500 Body temperature 97.52 [degF] Shashi Rhiew [facility] 11-03-2024 07:43-0500 Heart rate 60 /min Shashi Rhiew [facility] 11-03-2024 07:43-0500 SaO2% (BldA) [Mass fraction] 96 % Shashi Rhiew [facility] 11-03-2024 07:43-0500 Respiratory rate 16 /min Shashi Rhiew [facility] 11-03-2024 07:42-0500 Body temperature 97.52 [degF] Shashi Rhiew [facility] 11-03-2024 07:42-0500 Diastolic blood pressure 70 mm[Hg] Shashi Rhiew [facility] 11-03-2024 07:42-0500 Mean blood pressure 94 mm[Hg] Shashi Rhiew [facility] 11-03-2024 07:42-0500 Systolic blood pressure 141 mm[Hg] Shashi Rhiew [facility] 11-03-2024 04:31-0500 Heart rate 59 /min Shashi Rhiew [facility] 11-03-2024 04:31-0500 SaO2% (BldA) [Mass fraction] 96 % Shashi Rhiew [facility] 11-03-2024 04:31-0500 Respiratory rate 17 /min Shashi Rhiew [facility] 11-03-2024 04:30-0500 Blood Pressure Location Shashi Rhiew [facility] 11-03-2024 04:30-0500 Diastolic blood pressure 78 mm[Hg] Shashi Rhiew [facility] 11-03-2024 04:30-0500 Mean blood pressure 99 mm[Hg] Shashi Rhiew [facility] 11-03-2024 04:30-0500 Systolic blood pressure 141 mm[Hg] Shashi Rhiew [facility] 11-03-2024 00:58-0500 Body temperature 97.52 [degF] Shashi Rhiew [facility] 11-02-2024 16:45-0500 Respiratory rate 9 /min Shashi Rhiew [facility] 11-02-2024 16:20-0500 Blood Pressure Location Shashi Rhiew [facility] 11-02-2024 16:20-0500 Mean blood pressure 91 mm[Hg] Shashi Rhiew [facility] 11-02-2024 16:20-0500 Respiratory rate 11 /min Shashi Rhiew [facility] 11-02-2024 16:05-0500 Blood Pressure Location Shashi Rhiew [facility] 11-02-2024 16:05-0500 Mean blood pressure 90 mm[Hg] Shashi De Souza [facility] 11-02-2024 16:05-0500 Respiratory rate 13 /min Shashi Mossw [facility] 10-27-2024 09:00-0500 Body height 157.48 cm [facility] 10-27-2024 09:00-0500 Body mass index (BMI) [Ratio] 35.2 kg/m2 [facility] 10-27-2024 09:00-0500 Body weight 87.31 kg [facility] 10-27-2024 09:00-0500 Diastolic blood pressure 81 mm[Hg] [facility] 10-27-2024 09:00-0500 Heart rate 69 /min [facility] 10-27-2024 09:00-0500 Respiratory rate 12 /min [facility] 10-27-2024 09:00-0500 Systolic blood pressure 137 mm[Hg] [facility] 09-07-2024 08:48-0400 Body height 157.48 cm DO Broderick Ball Work Phone: [facility] 09-07-2024 08:48-0400 Body mass index (BMI) [Ratio] 35.8 kg/m2 DO Broderick Ball Work Phone: [facility] 09-07-2024 08:48-0400 Body temperature 96.6 [degF] DO Broderick Ball Work Phone: [facility] 09-07-2024 08:48-0400 Body weight 88.9 kg DO Broderick Ball Work Phone: [facility] 09-07-2024 08:48-0400 Diastolic blood pressure 60 mm[Hg] DO Broderick Ball Work Phone: [facility] 09-07-2024 08:48-0400 Heart rate 75 /min DO Broderick Ball Work Phone: [facility] 09-07-2024 08:48-0400 Respiratory rate 16 /min DO Broderick Howard Work Phone: [facility] 09-07-2024 08:48-0400 SaO2% (BldA) [Mass fraction] 98 % DO Broderick Ball Work Phone: [facility] 09-07-2024 08:48-0400 Systolic blood pressure 112 mm[Hg] DO Broderick Ball Work Phone: [facility] 09-05-2024 13:06-0400 Body height 157.5 cm Randa Reilly MD Work Phone: [facility] 09-05-2024 13:06-0400 Body mass index (BMI) [Ratio] 35.93 kg/m2 Randa Reilly MD Work Phone: [facility] 09-05-2024 13:06-0400 Body weight 89.1 kg Randa Reilly MD Work Phone: [facility] 09-05-2024 13:06-0400 Diastolic blood pressure 78 mm[Hg] Randa Reilly MD Work Phone: [facility] 09-05-2024 13:06-0400 Heart rate 84 /min Randa Reilly MD Work Phone: [facility] 09-05-2024 13:06-0400 Systolic blood pressure 133 mm[Hg] Randa Reilly MD Work Phone: [facility] 08-31-2024 09:54-0400 Body height 157.5 cm Kitty Millard MD Work Phone: [facility] 08-31-2024 09:54-0400 Body mass index (BMI) [Ratio] 35.48 kg/m2 Kitty Millard MD Work Phone: [facility] 08-31-2024 09:54-0400 Body weight 88 kg Kitty Millard MD Work Phone: [facility] 08-31-2024 09:54-0400 Diastolic blood pressure 72 mm[Hg] Kitty Millard MD Work Phone: [facility] 08-31-2024 09:54-0400 Heart rate 81 /min Kitty Millard MD Work Phone: [facility] 08-31-2024 09:54-0400 Systolic blood pressure 134 mm[Hg] Kitty Millard MD Work Phone: [facility] 08-30-2024 15:27-0400 Body height 157.48 cm DO Broderick Ball Work Phone: [facility] 08-30-2024 15:27-0400 Body mass index (BMI) [Ratio] 35.5 kg/m2 DO Broderick Ball Work Phone: [facility] 08-30-2024 15:27-0400 Body weight 88.22 kg DO Broderick Ball Work Phone: [facility] 08-30-2024 15:27-0400 Diastolic blood pressure 76 mm[Hg] DO Broderick Ball Work Phone: [facility] 08-30-2024 15:27-0400 Heart rate 83 /min DO Broderick Ball Work Phone: [facility] 08-30-2024 15:27-0400 Respiratory rate 12 /min DO Broderick Ball Work Phone: [facility] 08-30-2024 15:27-0400 Systolic blood pressure 134 mm[Hg] DO Broderick Ball Work Phone: [facility] 08-29-2024 10:50-0400 Body height 157.48 cm DO Broderick Ball Work Phone: [facility] 08-29-2024 10:50-0400 Body mass index (BMI) [Ratio] 35.1 kg/m2 DO Broderick Ball Work Phone: [facility] 08-29-2024 10:50-0400 Body weight 87.08 kg DO Broderick Ball Work Phone: [facility] 08-29-2024 10:50-0400 Diastolic blood pressure 64 mm[Hg] DO Broderick Ball Work Phone: [facility] 08-29-2024 10:50-0400 Heart rate 76 /min DO Broderick Ball Work Phone: [facility] 08-29-2024 10:50-0400 Systolic blood pressure 126 mm[Hg] DO Broderick Ball Work Phone: [facility] 06-29-2024 13:05-0400 Body height 157.5 cm Alejandro Villar MD, PhD Work Phone: [facility] 06-29-2024 13:05-0400 Body mass index (BMI) [Ratio] 34.44 kg/m2 Alejandro Villar MD, PhD Work Phone: [facility] 06-29-2024 13:05-0400 Body weight 85.4 kg Alejandro Villar MD, PhD Work Phone: [facility] 06-29-2024 13:05-0400 Diastolic blood pressure 72 mm[Hg] Alejandro Villar MD, PhD Work Phone: [facility] 06-29-2024 13:05-0400 Heart rate 85 /min Alejandro Villar MD, PhD Work Phone: [facility] 06-29-2024 13:05-0400 Systolic blood pressure 133 mm[Hg] Alejandro Villar MD, PhD Work Phone: [facility] 06-27-2024 14:01-0400 Body height 157.48 cm DO Broderick Ball Work Phone: [facility] 06-27-2024 14:01-0400 Body mass index (BMI) [Ratio] 34.2 kg/m2 DO Broderick Ball Work Phone: [facility] 06-27-2024 14:01-0400 Body weight 84.82 kg DO Broderick Ball Work Phone: [facility] 06-27-2024 14:01-0400 Diastolic blood pressure 74 mm[Hg] DO Broderick Ball Work Phone: [facility] 06-27-2024 14:040 Heart rate 68 /min DO Broderick Ball Work Phone: [facility] 06-27-2024 14:040 Respiratory rate 12 /min DO Broderick Ball Work Phone: [facility] 06-27-2024 14:010400 Systolic blood pressure 123 mm[Hg] DO Broderick Ball Work Phone: [facility] 06-08-2024 14:040 Body height 157.48 cm DO Broderick Ball Work Phone: [facility] 06-08-2024 14:040 Body mass index (BMI) [Ratio] 34 kg/m2 DO Broderick Ball Work Phone: [facility] 06-08-2024 14:040 Body temperature 97.6 [degF] DO Broderick Ball Work Phone: [facility] 06-08-2024 14:040 Body weight 84.36 kg DO Broderick Ball Work Phone: [facility] 06-08-2024 14:26-0400 Diastolic blood pressure 70 mm[Hg] DO Broderick Ball Work Phone: [facility] 06-08-2024 14:26-0400 Heart rate 73 /min DO Broderick Ball Work Phone: [facility] 06-08-2024 14:26-0400 Respiratory rate 16 /min DO Broderick Ball Work Phone: [facility] 06-08-2024 14:26-0400 SaO2% (BldA) [Mass fraction] 99 % DO Broderick Ball Work Phone: [facility] 06-08-2024 14:26-0400 Systolic blood pressure 140 mm[Hg] DO Broderick Ball Work Phone: [facility] 05-30-2024 07:27-0400 Body height 157.48 cm DO Broderick Ball Work Phone: [facility] 05-30-2024 07:27-0400 Body weight 86.18 kg DO Broderick Ball Work Phone: [facility] 05-23-2024 11:23-0400 Body height 157.5 cm Randa Reilly MD Work Phone: [facility] 05-23-2024 11:23-0400 Body mass index (BMI) [Ratio] 34.55 kg/m2 Randa Reilly MD Work Phone: [facility] 05-23-2024 11:23-0400 Body weight 85.68 kg Randa Reilly MD Work Phone: [facility] 05-23-2024 11:23-0400 Diastolic blood pressure 72 mm[Hg] Randa Reilly MD Work Phone: [facility] 05-23-2024 11:23-0400 Heart rate 85 /min Randa Reilly MD Work Phone: [facility] 05-23-2024 11:23-0400 Systolic blood pressure 133 mm[Hg] Randa Reilly MD Work Phone: [facility] 04-21-2024 10:00-0400 Body height 157.48 cm DO Broderick Ball Work Phone: [facility] 04-21-2024 10:00-0400 Body mass index (BMI) [Ratio] 34.5 kg/m2 DO Broderick Ball Work Phone: [facility] 04-21-2024 10:00-0400 Body weight 85.72 kg DO Broderick Ball Work Phone: [facility] 03-29-2024 13:34-0400 Body height 157.48 cm DO Broderick Ball Work Phone: [facility] 03-29-2024 13:34-0400 Body mass index (BMI) [Ratio] 33.3 kg/m2 DO Broderick Ball Work Phone: [facility] 03-29-2024 13:34-0400 Body weight 82.78 kg DO Broderick Ball Work Phone: [facility] 03-29-2024 13:34-0400 Diastolic blood pressure 77 mm[Hg] DO Broderick Ball Work Phone: [facility] 03-29-2024 13:34-0400 Heart rate 73 /min DO Broderick Ball Work Phone: [facility] 03-29-2024 13:34-0400 Respiratory rate 12 /min DO Broderick Ball Work Phone: [facility] 03-29-2024 13:34-0400 Systolic blood pressure 124 mm[Hg] DO Broderick Ball Work Phone: [facility] 03-27-2024 11:25-0400 Body height 157.48 cm DO Broderikc Ball Work Phone: [facility] 03-27-2024 11:25-0400 Body weight 84.36 kg DO Broderick Ball Work Phone: [facility] 03-07-2024 08:53-0400 Body height 157.5 cm Randa Reilly MD Work Phone: [facility] 03-07-2024 08:53-0400 Body mass index (BMI) [Ratio] 34.06 kg/m2 Randa Reilly MD Work Phone: [facility] 03-07-2024 08:53-0400 Body weight 84.46 kg Randa Reilly MD Work Phone: [facility] 03-07-2024 08:53-0400 Diastolic blood pressure 72 mm[Hg] Randa Reilly MD Work Phone: [facility] 03-07-2024 08:53-0400 Heart rate 85 /min Randa Reilly MD Work Phone: [facility] 03-07-2024 08:53-0400 Systolic blood pressure 133 mm[Hg] Randa Reilly MD Work Phone: [facility] 02-09-2024 14:58-0400 Body height 161.29 cm [facility] 02-09-2024 14:58-0400 Body mass index (BMI) [Ratio] 33.5 kg/m2 [facility] 02-09-2024 14:58-0400 Body weight 87.08 kg [facility] 02-09-2024 14:58-0400 Diastolic blood pressure 71 mm[Hg] [facility] 02-09-2024 14:58-0400 Heart rate 78 /min [facility] 02-09-2024 14:58-0400 Respiratory rate 12 /min [facility] 02-09-2024 14:58-0400 Systolic blood pressure 114 mm[Hg] [facility] 12-23-2023 09:02-0500 Body height 157.5 cm Alejandro Villar MD, PhD Work Phone: [facility] 12-23-2023 09:02-0500 Body temperature 97.59 [degF] Alejandro Villar MD, PhD Work Phone: [facility] 12-23-2023 09:02-0500 Body weight 86.64 kg Alejandro Villar MD, PhD Work Phone: [facility] 12-23-2023 09:02-0500 Diastolic blood pressure 72 mm[Hg] Alejandro Villar MD, PhD Work Phone: [facility] 12-23-2023 09:02-0500 Heart rate 85 /min Alejandro Villar MD, PhD Work Phone: [facility] 12-23-2023 09:02-0500 SaO2% (BldA) [Mass fraction] 100 % Aeljandro Villar MD, PhD Work Phone: [facility] 12-23-2023 09:02-0500 Systolic blood pressure 133 mm[Hg] Alejnadro Villar MD, PhD Work Phone: [facility] 09-08-2023 14:50-0400 Body height 157.5 cm Mirian Bell DIRECTOR OF FINANCE.[employer] Work Phone: [facility] 09-08-2023 14:50-0400 Body weight 86.5 kg Mirian Bell DIRECTOR OF FINANCE.[employer] Work Phone: [facility] 09-08-2023 14:50-0400 Diastolic blood pressure 64 mm[Hg] Mirian Bell DIRECTOR OF FINANCE.[employer] Work Phone: [facility] 09-08-2023 14:50-0400 Heart rate 62 /min Mirian Bell DIRECTOR OF FINANCE.[employer] Work Phone: [facility] 09-08-2023 14:50-0400 Systolic blood pressure 130 mm[Hg] Mirian Bell DIRECTOR OF FINANCE.[facility] Work Phone: [facility] 08-25-2023 10:20-0400 Body height 161.29 cm Niki Blades Other [facility] Other 08-25-2023 10:20-0400 Body mass index (BMI) [Ratio] 34.35 kg/m2 Niki Blades Other [facility] Other 08-25-2023 10:20-0400 Body weight 89.36 kg Niki Blades Other [facility] Other 08-16-2023 10:00-0400 Body height 161.29 cm Niki Blades Other [facility] Other 08-16-2023 10:00-0400 Body mass index (BMI) [Ratio] 34.35 kg/m2 Niki Blades Other [facility] Other 08-16-2023 10:00-0400 Body weight 89.36 kg Niki Blades Other [facility] Other 08-05-2023 07:21-0400 Body temperature 97.8 [degF] DO Broderick Ball Work Phone: [facility] 08-05-2023 07:21-0400 Diastolic blood pressure 73 mm[Hg] DO Broderick Ball Work Phone: [facility] 08-05-2023 07:21-0400 Heart rate 63 /min DO Broderick Ball Work Phone: [facility] 08-05-2023 07:21-0400 Respiratory rate 14 /min DO Broderick Ball Work Phone: [facility] 08-05-2023 07:21-0400 SaO2% (BldA) [Mass fraction] 97 % DO Broderick Ball Work Phone: [facility] 08-05-2023 07:21-0400 Systolic blood pressure 117 mm[Hg] DO Broderick Ball Work Phone: [facility] 08-05-2023 06:00-0400 Body weight 96.7 kg DO Broderick Ball Work Phone: [facility] 08-04-2023 00:00-0400 Inhaled oxygen flow rate 3 L/min DO Broderick Ball Work Phone: [facility] 08-03-2023 07:02-0400 Body height 157.48 cm DO Broderick Ball Work Phone: [facility] 08-03-2023 07:02-0400 Body mass index (BMI) [Ratio] 35 kg/m2 DO Broderick Ball Work Phone: [facility] 07-07-2023 14:20-0400 Body height 161.29 cm Niki Blades Other [facility] Other 07-07-2023 14:20-0400 Body mass index (BMI) [Ratio] 33.65 kg/m2 Niki Blades Other [facility] Other 07-07-2023 14:20-0400 Body weight 87.54 kg Niki Blades Other [facility] Other 07-07-2023 14:20-0400 Diastolic blood pressure 80 mm[Hg] Niki Blades Other [facility] Other 07-07-2023 14:20-0400 Systolic blood pressure 142 mm[Hg] Niki Blades Other [facility] Other 06-04-2023 08:42-0400 Body height 162.56 cm DO Broderick Ball Work Phone: [facility] 06-04-2023 08:42-0400 Body weight 87.08 kg DO Broderick Ball Work Phone: [facility] 05-06-2023 14:30-0400 Body height 161.29 cm Bertram Sanders Other [facility] Other 05-06-2023 14:30-0400 Body mass index (BMI) [Ratio] 33.3 kg/m2 Bertram Sanders Other [facility] Other 05-06-2023 14:30-0400 Body weight 86.64 kg Bertram Sanders Other [facility] Other 05-06-2023 14:30-0400 Diastolic blood pressure 70 mm[Hg] Bertram Shannony Other [facility] Other 05-06-2023 14:30-0400 Systolic blood pressure 125 mm[Hg] Bertram Didavidy Other [facility] Other 05-03-2023 14:30-0400 Body height 161.29 cm Broderick Ball Other [facility] Other 05-03-2023 14:30-0400 Body mass index (BMI) [Ratio] 33.16 kg/m2 Broderick Ball Other [facility] Other 05-03-2023 14:30-0400 Body weight 86.27 kg Broderick Ball Other [facility] Other 05-03-2023 14:30-0400 Diastolic blood pressure 71 mm[Hg] Broderick Ball Other [facility] Other 05-03-2023 14:30-0400 Respiratory rate 12 /min Broderick Ball Other [facility] Other 05-03-2023 14:30-0400 Systolic blood pressure 120 mm[Hg] Broderick Ball Other [facility] Other 03-25-2023 11:00-0400 Body height 161.29 cm Broderick Ball Other [facility] Other 03-25-2023 11:00-0400 Body mass index (BMI) [Ratio] 33.61 kg/m2 Broderick Ball Other [facility] Other 03-25-2023 11:00-0400 Body weight 87.45 kg Broderick Ball Other [facility] Other 03-25-2023 11:00-0400 Diastolic blood pressure 78 mm[Hg] Broderick Ball Other [facility] Other 03-25-2023 11:00-0400 Respiratory rate 12 /min Broderick Ball Other [facility] Other 03-25-2023 11:00-0400 Systolic blood pressure 135 mm[Hg] Broderick Ball Other [facility] Other 01-07-2023 14:15-0500 Body height 161.29 cm Bertram Sanders Other [facility] Other 01-07-2023 14:15-0500 Body mass index (BMI) [Ratio] 32.25 kg/m2 Bertram Sanders Other [facility] Other 01-07-2023 14:15-0500 Body weight 83.92 kg Bertram Sanders Other [facility] Other 01-07-2023 14:15-0500 Diastolic blood pressure 85 mm[Hg] Bertram Sanders Other [facility] Other 01-07-2023 14:15-0500 Systolic blood pressure 155 mm[Hg] Bertram Sanders Other [facility] Other 11-25-2022 11:00-0500 Body height 161.29 cm Broderick Ball Other [facility] Other 11-25-2022 11:00-0500 Body mass index (BMI) [Ratio] 32.25 kg/m2 Broderick Ball Other [facility] Other 11-25-2022 11:00-0500 Body weight 83.92 kg Broderick Ball Other [facility] Other 11-25-2022 11:00-0500 Diastolic blood pressure 78 mm[Hg] Broderick Ball Other [facility] Other 11-25-2022 11:00-0500 Respiratory rate 12 /min Broderick Ball Other [facility] Other 11-25-2022 11:00-0500 Systolic blood pressure 118 mm[Hg] Broderick Howard Other [facility] Other 09-10-2022 13:48-0400 Body height 157.5 cm Alejandro Villar MD, PhD Work Phone: [facility] 09-10-2022 13:48-0400 Body weight 88.27 kg Alejandro Villar MD, PhD Work Phone: [facility] 09-10-2022 13:48-0400 Diastolic blood pressure 86 mm[Hg] Alejandro Villar MD, PhD Work Phone: [facility] 09-10-2022 13:48-0400 Heart rate 76 /min Alejandro Villar MD, PhD Work Phone: [facility] 09-10-2022 13:48-0400 Systolic blood pressure 148 mm[Hg] Alejandro Villar MD, PhD Work Phone: [facility] 07-23-2022 10:09-0400 Body height 160 cm Kitty Millard MD Work Phone: [facility] 07-23-2022 10:09-0400 Body weight 88 kg Kitty Millard MD Work Phone: [facility] 07-23-2022 10:09-0400 Diastolic blood pressure 66 mm[Hg] Kitty Millard MD Work Phone: [facility] 07-23-2022 10:09-0400 Heart rate 63 /min Kitty Millard MD Work Phone: [facility] 07-23-2022 10:09-0400 Systolic blood pressure 136 mm[Hg] Kitty Millard MD Work Phone: [facility] 01-06-2022 11:30-0500 Body height 161.29 cm Bertram Sanders Other [facility] Other 01-06-2022 11:30-0500 Body mass index (BMI) [Ratio] 30.68 kg/m2 Bertram Sanders Other [facility] Other 01-06-2022 11:30-0500 Body weight 79.83 kg Bertram Sanders Other [facility] Other Encounters Encounter Date Encounter Type Care Provider Facility Start: 07-02-2025 End: 07-02-2025 ambulatory Broderick Lee MCKEON Work Phone: [facility] Work Phone: Start: 07-02-2025 End: 07-02-2025 Patient encounter procedure Broderick Howard DO -[facility] Work Phone: Start: 05-21-2025 End: 05-21-2025 Office outpatient new 45 minutes Elian Jones DO Work Phone: Neurology Comment on above: Chronic pain syndrom e (Primary Dx); MCI (mild cognitive impairment); Sinus node dysfunction (HCC); Obesity, Class II, BMI 35-39.9 Start: 05-21-2025 End: 05-21-2025 ambulatory ELIAN JONES Facility:[facility] Start: 04-10-2025 End: 04-10-2025 Patient encounter procedure Randa Reilly MD Work Phone: Neurology Comment on above: Intractable 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 aura and without status migrainosus (Primary Dx) Start: 04-10-2025 End: 04-10-2025 ambulatory RANDA REILLY Facility:[facility] Start: 02-22-2025 End: 02-22-2025 ambulatory Broderick Lee Work Phone: [facility] Work Phone: Start: 02-22-2025 End: 02-22-2025 Patient encounter procedure Broderick Howard DO Work Phone: [facility] Work Phone: Start: 02-21-2025 End: 02-21-2025 ambulatory Broderick Howard DO Work Phone: [facility] Work Phone: Start: 02-21-2025 End: 02-21-2025 Patient encounter procedure Broderick Howard DO Work Phone: [facility] Work Phone: Start: 02-12-2025 Non-patient / Non-visit Benjjúnior in Lee DO Work Phone: [facility] Work Phone: Start: 01-23-2025 End: 01-30-2025 Follow-up encounter Alejandro Villar MD, PhD Work Phone: Neurology Start: 01-05-2025 End: 01-05-2025 Patient encounter procedure Svitlana Mayfield APRN.[employer] Work Phone: Neurology Comment on above: Intractable 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 aura and without status migrainosus (Primary Dx) Start: 01-05-2025 End: 01-05-2025 ambulatory SVITLANA MAYFIELD Facility:[facility] Start: 01-04-2025 End: 01-04-2025 Patient encounter procedure Alejandro Villar MD, PhD Work Phone: Neurology Comment on above: Localization-related (focal) (partial) symptomatic epilepsy and epileptic syndromes with complex partial seizures, intractable, without status epilepticus (HCC) (Primary Dx); Memory loss Start: 01-04-2025 End: 01-04-2025 ambulatory ALEJANDRO VILLAR Facility:[facility] Start: 12-13-2024 End: 12-13-2024 Office outpatient visit 15 minutes Aftab Dey DO Work Phone: [facility] Comment on above: Abdominal wall hemat garrett, subsequent encounter (Primary Dx) Start: 12-13-2024 End: 12-13-2024 ambulatory AFTAB DEY Not Available Start: 12-09-2024 End: 12-11-2024 Refill Lauren Otero [employer] Work Phone: Neurology Comment on above: Refill Request Start: 12-08-2024 End: 12-08-2024 ambulatory Broderick Howard DO Work Phone: [facility] Work Phone: Start: 12-08-2024 End: 12-08-2024 Patient encounter procedure Broderick Howard DO Work Phone: [facility] Work Phone: Start: 11-29-2024 End: 11-29-2024 Office outpatient new 45 minutes Aftab Dey DO Work Phone: [facility] Comment on above: Abdominal wall hemat garrett, initial encounter (Primary Dx) Start: 11-29-2024 End: 11-29-2024 ambulatory AFTAB DEY Not Available Start: 11-28-2024 End: 11-28-2024 ambulatory Broderick Howard DO Work Phone: [facility] Work Phone: Start: 11-28-2024 End: 11-28-2024 Patient encounter procedure Broderick Howard DO Work Phone: [facility] Work Phone: Start: 11-24-2024 End: 11-24-2024 Emergency department patient visit Broderick Howard DO Work Phone: [facility] Work Phone: Start: 11-24-2024 End: 11-24-2024 ambulatory [facility] Work Phone: Start: 11-24-2024 End: 11-24-2024 Patient encounter procedure [facility] Work Phone: Start: 11-17-2024 End: 11-17-2024 ambulatory [facility] Work Phone: Start: 11-17-2024 End: 11-17-2024 Patient encounter procedure [facility] Work Phone: Start: 11-02-2024 End: 11-03-2024 ambulatory Shashi B Rhiew [place] Start: 11-02-2024 End: 11-03-2024 Patient encounter procedure Shashi B Rhiew [facility] Start: 10-27-2024 End: 10-27-2024 Encounter for other preprocedural examination [facility] Start: 10-27-2024 End: 10-27-2024 Patient encounter procedure [facility] Work Phone: Start: 10-25-2024 Non-patient / Non-visit [facility] Work Phone: Start: 10-25-2024 End: 10-25-2024 ambulatory Shashi B Rhiew [place] Start: 10-23-2024 End: 10-23-2024 ambulatory Shashi B Rhiew [place] Start: 10-23-2024 End: 10-23-2024 Patient encounter procedure Shashi B Rhiew [facility] Start: 10-02-2024 End: 10-02-2024 ambulatory KITTY MILLARD Facility:[facility] Start: 09-07-2024 End: 09-07-2024 ambulatory DO Broderick Howard Work Phone: [facility] Work Phone: Start: 09-07-2024 End: 09-07-2024 Patient encounter procedure DO Broderick Lee Work Phone: [facility] Work Phone: Start: 09-05-2024 End: 09-05-2024 Patient encounter procedure Randa Reilly MD Work Phone: Neurology Comment on above: Intractable 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 aura and without status migrainosus (Primary Dx) Start: 09-05-2024 End: 09-05-2024 ambulatory RANDA REILLY Facility:[facility] Start: 08-31-2024 End: 08-31-2024 ambulatory KITTY MILLARD Facility:[facility] Start: 08-31-2024 End: 08-31-2024 Office outpatient visit 25 minutes Kitty Millard MD Work Phone: Cardiology Comment on above: 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); Cardiac pacemaker in situ; Bradycardia Start: 08-30-2024 End: 08-30-2024 ambulatory DO Broderick Ball Work Phone: [facility] Work Phone: Start: 08-30-2024 End: 08-30-2024 Patient encounter procedure DO Broderick Ball Work Phone: [facility] Work Phone: Start: 08-29-2024 End: 08-29-2024 ambulatory DO Broderick Ball Work Phone: [facility] Work Phone: Start: 08-29-2024 End: 08-29-2024 Patient encounter procedure DO Broderick Ball Work Phone: [facility] Work Phone: Start: 08-29-2024 End: 08-29-2024 ambulatory DO Broderick Ball Work Phone: [facility] Work Phone: Start: 08-29-2024 End: 08-29-2024 Patient encounter procedure DO Broderick Ball Work Phone: [facility] Work Phone: Start: 08-28-2024 Non-patient / Non-visit DO Miguel A hazelin Ball Work Phone: [facility] Work Phone: Start: 07-05-2024 Non-patient / Non-visit DO Miguel A Howard Work Phone: [facility] Work Phone: Start: 07-05-2024 End: 07-05-2024 ambulatory DO Broderick Howard Work Phone: [facility] Work Phone: Start: 07-05-2024 End: 07-05-2024 Departed Referred DO Broderick Howard Work Phone: [facility] Start: 06-29-2024 Non-patient / Non-visit DO Miguel A Howard Work Phone: [facility] Work Phone: Start: 06-29-2024 End: 06-29-2024 ambulatory [facility] Facility:[facility] Start: 06-29-2024 End: 06-29-2024 Patient encounter procedure Alejandro Villar MD, PhD Work Phone: Neurology Comment on above: Focal epilepsy with impairment of consciousness, intractable (HCC) (Primary Dx); Partial epilepsy with impairment of consciousness, intractable (HCC) Start: 06-29-2024 End: 06-29-2024 ambulatory ALEJANDRO CHONG Facility:[facility] Start: 06-27-2024 End: 06-27-2024 ambulatory DO Broderick Howard Work Phone: [facility] Work Phone: Start: 06-27-2024 End: 06-27-2024 Patient encounter procedure DO Broderick Howard Work Phone: [facility] Work Phone: Start: 06-12-2024 End: 06-12-2024 ambulatory JACK POMPA Not Available Start: 06-08-2024 End: 06-08-2024 ambulatory DO Broderick Howard Work Phone: [facility] Work Phone: Start: 06-08-2024 End: 06-08-2024 Patient encounter procedure DO Broderick Howard Work Phone: [facility] Nephrology [facility] Work Phone: Start: 06-05-2024 Non-patient / Non-visit DO Miguel A Howard Work Phone: [facility] Work Phone: Start: 06-05-2024 End: 06-05-2024 ambulatory Keith Parks MD Facility:[facility] Start: 05-30-2024 End: 05-30-2024 Patient encounter procedure DO Broderick Hwoard Work Phone: [facility] [place] Work Phone: Start: 05-30-2024 End: 05-30-2024 ambulatory DO Broderick Howard Work Phone: [facility] Work Phone: Start: 05-23-2024 End: 05-23-2024 Patient encounter procedure Randa Reilly MD Work Phone: Neurology Comment on above: Intractable 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 aura and without status migrainosus (Primary Dx) Start: 05-23-2024 End: 05-23-2024 ambulatory RANDA REILLY Facility:[facility] Start: 05-15-2024 Non-patient / Non-visit DO Miguel A Howard Work Phone: [facility] Work Phone: Start: 05-15-2024 End: 05-15-2024 ambulatory Keith Parks MD Facility:[facility] Start: 05-05-2024 Non-patient / Non-visit DO Miguel A Howard Work Phone: [facility] Work Phone: Start: 05-03-2024 End: 05-03-2024 ambulatory DAVID MCFADDEN Not Available Start: 04-21-2024 End: 04-21-2024 ambulatory DO Broderick Howard Work Phone: [facility] Work Phone: Start: 04-21-2024 End: 04-21-2024 Patient encounter procedure DO Broderick Howard Work Phone: [facility] Neurosurgery Work Phone: Start: 03-29-2024 End: 03-29-2024 Patient encounter procedure DO Broderick Howard Work Phone: [facility] Work Phone: Start: 03-28-2024 End: 03-28-2024 Patient encounter procedure DO Broderick Howard Work Phone: [facility]-MRI [facility] [place] Work Phone: Start: 03-28-2024 End: 03-28-2024 ambulatory Broderick Howard Facility:[facility] Start: 03-09-2024 End: 03-09-2024 Patient encounter procedure DO Broderick Howard Work Phone: [facility]-Pacemaker Check Start: 03-09-2024 End: 03-09-2024 ambulatory DO Broderick Howard Work Phone: [facility] Work Phone: Start: 03-08-2024 Follow-up encounter Kitty Millard MD Work Phone: [facility] Start: 03-08-2024 Patient encounter procedure Kitty Millard MD Work Phone: [facility] Start: 03-07-2024 End: 03-07-2024 Patient encounter procedure Randa Reilly MD Work Phone: Neurology Comment on above: Intractable 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 aura and without status migrainosus (Primary Dx); Cervicalgia; SHELL (obstructive sleep apnea) Start: 03-03-2024 Non-patient / Non-visit DO Miguel A Howard [facility] Work Phone: Start: 02-15-2024 Non-patient / Non-visit DO Miguel A Howard Work Phone: [facility] Work Phone: Start: 02-10-2024 Non-patient / Non-visit DO Miguel A Howard Work Phone: [facility] [facility] Work Phone: Start: 02-09-2024 End: 02-09-2024 ambulatory [facility] Work Phone: Start: 02-09-2024 End: 02-09-2024 Patient encounter procedure [facility] Work Phone: Start: 12-23-2023 End: 12-23-2023 Patient encounter procedure Alejandro Villar MD, PhD Work Phone: Neurology Comment on above: Intractable 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 aura and without status migrainosus (Primary Dx) Start: 11-24-2023 End: 11-24-2023 ambulatory Broderick Howard Other [facility] Other Start: 11-24-2023 Office outpatient vi sit 15 minutes Broderick [facility] Start: 11-24-2023 End: 11-24-2023 Patient encounter procedure [facility] Work Phone: Start: 09-13-2023 Refill Alejandro wright MD, PhD Work Phone: Neurology Comment on above: Refill Request Patient Update Start: 09-08-2023 Follow-up encounter Kitty Millard MD Work Phone: [facility] Start: 09-08-2023 End: 09-08-2023 Patient encounter procedure Kitty Millard MD Work Phone: [facility] Comment on above: 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); Cardiac pacemaker in situ; Bradycardia Start: 08-25-2023 End: 08-25-2023 ambulatory Niki Blades Other [facility] Other Start: 08-25-2023 Postop follow up vis it related to original px Niki Blades [facility] Start: 08-16-2023 End: 08-16-2023 ambulatory Niki Blades Other [facility] Other Start: 08-16-2023 Postop follow up vis it related to original px Niki Blades [facility] Start: 08-13-2023 End: 08-13-2023 ambulatory Broderick Ball Other [facility] Other Start: 08-13-2023 Telephone encounter Broderick SCHWARZ [facility] Start: 08-12-2023 End: 08-12-2023 ambulatory Niki Blades Other [facility] Other Start: 08-12-2023 Postop follow up vis it related to original px Niki Blades [facility] Start: 08-03-2023 End: 08-05-2023 Admission to same day surgery center DO Broderick Ball Work Phone: [facility] [place] Start: 08-03-2023 End: 08-05-2023 ambulatory DO Broderick Ball Work Phone: [facility] Work Phone: Start: 08-02-2023 End: 08-02-2023 ambulatory Broderick Ball Other [facility] Other Start: 08-02-2023 Telephone encounter Broderick Dorantes [facility] Start: 07-20-2023 End: 07-20-2023 ambulatory DO Broderick Ball Work Phone: [facility] Work Phone: Start: 07-20-2023 End: 07-20-2023 Patient encounter procedure DO Broderick Ball Work Phone: [facility] Work Phone: Start: 07-09-2023 End: 07-09-2023 ambulatory Niki Blades Other [facility] Other Start: 07-09-2023 Telephone encounter Niki Blades [facility] [employer] Start: 07-07-2023 End: 07-07-2023 ambulatory Niki Blades Other [facility] Other Start: 07-07-2023 Office outpatient ne w 45 minutes Niki Blades [facility] Start: 06-08-2023 Follow-up encounter Kitty Millard MD Work Phone: [facility] Start: 06-08-2023 Pacemaker Remote F/U Kitty Millard MD Work Phone: [facility] Start: 06-04-2023 ambulatory Facility:[id number] Start: 06-04-2023 End: 06-04-2023 ambulatory DO Broderick Ball Work Phone: [facility] Work Phone: Start: 06-04-2023 End: 06-04-2023 Patient encounter procedure DO Broderick Ball Work Phone: [facility]-MRI [facility] [place] Work Phone: Start: 05-14-2023 ambulatory Facility:[id number] Start: 05-14-2023 End: 05-14-2023 ambulatory DO Broderick Ball Work Phone: [facility] Work Phone: Start: 05-14-2023 End: 05-14-2023 Patient encounter procedure DO Broderick Ball Work Phone: [facility]-Pacemaker Check Start: 05-06-2023 End: 05-06-2023 ambulatory Bertram Sanders Other [facility] Other Start: 05-06-2023 Patient encounter procedure Bertram Sanders [facility] Start: 05-03-2023 End: 05-03-2023 ambulatory Broderick Howard Other [facility] Other Start: 05-03-2023 Office outpatient vi sit 15 minutes Broderick Lee [facility] Start: 05-03-2023 Telephone encounter Broderick Howard [facility] Start: 03-29-2023 End: 04-14-[address] BRODERICK HOWARD [facility] Other Start: 03-29-2023 Telephone encounter Broderick SCHWARZ [facility] Start: 03-25-2023 End: 03-25-2023 ambulatory Broderick Howard Other [facility] Other Start: 03-25-2023 Office outpatient vi sit 25 minutes Broderick Howard [facility] Start: 03-15-2023 End: 04-14-2023 ambulatory SHAIKH Guy CARRILLO Facility:[facility] Start: 02-24-2023 Follow-up encounter Kitty Millard MD Work Phone: [facility] Start: 02-24-2023 Pacemaker Remote F/U Kitty Millard MD Work Phone: [facility] Start: 02-15-2023 End: 03-12-2023 ambulatory SHAIKH Guy CARRILLO Facility:[facility] Start: 02-03-2023 End: 02-03-2023 ambulatory Bertram Sanders Other [facility] Other Start: 02-03-2023 Telephone encounter Bertram SCHWARZ [facility] Start: 01-13-2023 End: 02-12-2023 ambulatory SHAIKH Guy CARRILLO Facility:[facility] Start: 01-07-2023 End: 01-07-2023 ambulatory Bertram Sanders Other [facility] Other Start: 01-07-2023 Patient encounter procedure Bertram Sanders [facility] Start: 12-16-2022 End: 01-13-2023 ambulatory AGUILAR H FAWWAD Facility:[facility] Start: 11-25-2022 End: 11-25-2022 ambulatory Broderick Howard Other [facility] Other Start: 11-25-2022 Follow-up encounter Kitty Millard MD Work Phone: [facility] Start: 11-25-2022 Office outpatient vi sit 25 minutes Broderick Howard [facility] Start: 11-25-2022 Pacemaker Remote F/U Kitty Millard MD Work Phone: [facility] Start: 11-23-2022 Patient encounter procedure Broderick Howard Other [facility] Other Start: 11-16-2022 End: 12-16-2022 ambulatory AGUILAR H FAWWAD Facility:[facility] Start: 10-15-2022 Adult health examination Niki Blades Other [facility] Other Start: 10-15-2022 Gynecological examination normal Niki Blades Other [facility] Other Start: 10-15-2022 End: 11-15-2022 ambulatory AGUILAR H FAWWAD Facility:[facility] Start: 09-15-2022 End: 10-14-2022 ambulatory AGUILAR H FAWWAD Facility:[facility] Start: 09-10-2022 End: 09-10-2022 Patient encounter procedure Alejandro Villar MD, PhD Work Phone: Neurology Comment on above: 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, intractable (HCC) Start: 08-26-2022 Follow-up encounter Kitty Millard MD Work Phone: [facility] Start: 08-26-2022 Pacemaker Remote F/U Kitty Millard MD Work Phone: [facility] Start: 08-16-2022 End: 09-14-2022 ambulatory SHAIKH Guy CARRILLO Facility:[facility] Start: 08-10-2022 End: 08-11-[address] BRODERICK HOWARD Facility:[facility] Start: 08-03-2022 End: 08-04-[address] BRODERICK HOWARD Facility:[facility] Start: 07-31-2022 End: 08-01-[address] BRODERICK HOWARD Facility:[facility] Start: 07-29-2022 End: 07-30-[address] BRODERICK HOWARD Facility:[facility] Start: 07-23-2022 End: 07-23-2022 Patient encounter procedure Kitty Millard MD Work Phone: Cardiology Comment on above: Chronic fatigue (Manuela hugo Dx) Start: 07-16-2022 End: 08-15-2022 ambulatory SHAIKH Guy CARRILLO Facility:[facility] Start: 06-15-2022 End: 07-15-2022 ambulatory SHAIKH Guy CARRILLO Facility:[facility] Start: 06-08-2022 End: 06-08-[address] BRODERICK HOWARD Facility:[facility] Start: 05-15-2022 End: 06-12-[address] BRODERICK HOWARD Facility:[facility] Start: 01-06-2022 End: 01-06-2022 ambulatory Bertram Sanders Other [facility] Other Start: 01-06-2022 Patient encounter procedure Bertram Sanders [facility] Gastroenterology Start: 10-14-2020 End: 10-14-2020 Pre-procedure evaluation check Niki Blades Other [facility] Other Procedures Date Procedure Procedure Detail Performing Clinician Start: 11-24-2024 CT of abdomen and pelvis without contrast Broderick Howard DO Work Phone: Start: 11-24-2024 Bacteria identified in Blood by Culture Broderick Howard DO Work Phone: Start: 11-02-2024 Laminectomy Shashi Ajayneo Start: 08-31-2024 Ecg routine ecg w/least 12 lds i&r only [facility] Provider Start: 05-30-2024 MR lumbar spine wo con DO Broderick Howard Work Phone: Start: 03-28-2024 MRI of lumbar spine with contrast DO Miguel A Howard Work Phone: Start: 03-08-2024 PACEMAKER REMOTE CHECK Kitty Millard MD Work Phone: Start: 09-08-2023 PACEMAKER CLINIC CHECK Kitty Millard MD Work Phone: Start: 08-03-2023 Excision of lumbar intervertebral disc DO Broderick Ball Work Phone: Start: 08-03-2023 X-ray of lumbar spine, single view DO Be giovani Howard Work Phone: Start: 06-08-2023 PACEMAKER REMOTE CHECK Kitty Millard MD Work Phone: Start: 06-04-2023 MRI of lumbar spine with contrast DO Miguel A Howard Work Phone: Start: 06-04-2023 XR pre/post mri xray DO Broderick Howard Work Phone: Start: 02-24-2023 PACEMAKER REMOTE CHECK Kitty Millard MD Work Phone: Start: 11-25-2022 PACEMAKER REMOTE CHECK Kitty Millard MD Work Phone: Start: 08-26-2022 PACEMAKER REMOTE CHECK Kitty Millard MD Work Phone: Start: 04-13-2019 Screening for malignant neoplasm of colon Niki Blades Other Start: 04-13-2019 Screening mammography Niki Blades Other Start: 11-07-1960 Appendectomy Shashi De Souza Arthroscopy of shoulder Rich jeffrey Ajayw Cardiac pacemaker, d evice (physical object) Shashi Anselmomerlynw Cataract surgery Shashi Dial ew Cholecystectomy Shashi Moss w Colonoscopy Shashi De Souza End: 01-25-2022 Depression screening Niki Jagtian Other Esophagogastroduodenoscopy Diego De Souza Hammer toe operation Shashi De Souza History of cervical laminectomy Shashi De Souza Comment on above: DR Doan History of lumbar laminectomy Shashi De Souza Comment on above: 2022 Dr Desi Cuellar History of Whipple procedure Shashi De Souza Comment on above: 2014 Implantable venous c atheter, device (physical object) Shashi De Souza Lobectomy of brain Shashi srivastava Comment on above: 2014 Plan of Treatment Date Care Activity Detail Author Start: 06-29-2027 Diabetes Screening Diabetes Screenin g [facility] Start: 04-10-2026 BP Controlled (<130/80) BP Controlle d (<130/80) [facility] Start: 01-09-2026 End: 01-09-2026 Patient encounter procedure 01/09/2026 11:00 AM EST Office Visit Neurology [address] [place] [id number] Alejandro Villar MD, PhD [address] [place] [address] annaul follow up Neurology Comment on above: annaul follow up Start: 01-05-2026 BP Controlled (<130/80) BP Controlle d (<130/80) [facility] Start: 01-04-2026 BP Controlled (<130/80) BP Controlle d (<130/80) [facility] Start: 07-18-2025 End: 07-18-2025 Patient encounter procedure 07/18/2025 10:00 AM EDT Office Visit Neurology [address] [place] [address] [place] [address] [place] [address] Botox Neurology Comment on above: Botox Start: 07-16-2025 Influenza vaccination Influenza Vacc ine (#1) [facility] Start: 05-21-2025 End: 05-21-2025 Patient encounter procedure 05/21/2025 8:00 AM EDT Office Visit Neurology [address] [place] [address] Elian Jones DO [address] [address] MCI (mild cognitive impairment) [G31.84] Neurology Comment on above: MCI (mild cognitive impairment) [G31.84] Start: 04-10-2025 End: 04-10-2025 Patient encounter procedure 04/10/2025 11:30 AM EDT Office Visit Neurology [address] [place] [address] [place] [address] [facility] [place] [address] Botox Neurology Comment on above: Botox Start: 2025 RSV Vaccine (1 - 1-d ose 75+ series) RSV Vaccine (1 - 1-dose 75+ series) [facility] Start: 01-05-2025 End: 01-05-2025 Patient encounter procedure 01/05/2025 12:00 PM EST Office Visit Neurology [address] [place] [address] Svitlana Mayfield, [employer] [address] [place] [address] Botox Neurology Comment on above: Botox Start: 01-04-2025 End: 01-04-2025 Patient encounter procedure 01/04/2025 2:00 PM EST Office Visit Neurology [address] [place] [address] Alejandro Villar MD, PhD [address] [place] [address] Follow up Neurology Comment on above: Follow up Start: 12-12-2024 End: 12-12-2024 Patient encounter procedure 12/12/2024 11:00 AM EST Office Visit Neurology [address] [place] [address] [place] [address] [place] [address] Botox Neurology Comment on above: Botox Start: 11-28-2024 DIABETES SCREEN DIABETES SCREEN [facility] Start: 11-28-2024 Diabetes Screening Diabetes Screenin g [facility] Start: 11-24-2024 [facility] Start: 11-24-2024 Bacteria identified in Blood by Culture Blood Culture [facility] Start: 11-15-2024 Advance Directive Discussion Advance Directive Discussion [facility] Start: 11-15-2024 Medicare Advantage A nnual Wellness Visit Medicare Advantage Annual Wellness Visit [facility] Start: 10-02-2024 End: 10-02-2024 Patient encounter procedure 10/02/2024 2:40 PM EST Office Visit Cardiology [address] [place] [address] echo Cardiology Comment on above: echo Start: 09-05-2024 End: 09-05-2024 Patient encounter procedure 09/05/2024 1:30 PM EDT Office Visit Neurology [address] [place] [address] [place] [address] [place] [address] Botox Neurology Comment on above: Botox Start: 08-31-2024 End: 08-31-2024 Patient encounter procedure 08/31/2024 10:00 AM EDT Office Visit Cardiology [address] [place] [address] [place] [address] [place], [place] [id number] return in about 1 year (around 09/08/2024) Cardiology Comment on above: return in about 1 ye ar (around 09/08/2024) Start: 07-16-2024 Covid-19 Vaccine ( season) Covid-19 Vaccine () [facility] Start: 07-16-2024 Influenza vaccination Influenza Vacc ine (#1) [facility] Start: 06-29-2024 End: 06-29-2024 Patient encounter procedure 06/29/2024 1:00 PM EDT Office Visit Neurology [address] [place] [address] Alejandro Villar MD, PhD [address] [place] [address] Follow Up-rescheduled from 06/22 Neurology Comment on above: Follow Up-reschedule d from 06/22 Start: 04-21-2024 Patient referral [facility] Work Phone: Start: 11-15-2023 Advance Directive Discussion Advance Directive Discussion [facility] Start: 08-05-2023 [facility] Start: 08-03-2023 Hospital admission [facility] Start: 08-03-2023 [facility] Start: 07-16-2023 Covid-19 Vaccine ( season) Covid-19 Vaccine () [facility] Start: 07-16-2023 Influenza vaccination [facility] Start: 11-15-2022 ADVANCE DIRECTIVE DISCUSSION ADVANCE DIRECTIVE DISCUSSION [facility] Start: 09-10-2022 End: 11-10-2022 levETIRAcetam [Mass/volume] in Serum or Plasma [facility] Work Phone: Comment on above: Expected: 09/10/2022 , Expires: 11/10/2022 Start: 09-10-2022 End: 11-10-2022 Zonisamide [Mass/volume] in Serum or Plasma [facility] Work Phone: Comment on above: Expected: 09/10/2022 , Expires: 11/10/2022 Start: 07-16-2022 Influenza vaccination INFLUENZA (#1) [facility] Start: 04-30-2022 Screening for malign ant neoplasm of colon [facility] Start: 11-15-2021 ADVANCE DIRECTIVE DISCUSSION ADVANCE DIRECTIVE DISCUSSION [facility] Start: 02-04-2019 Pneumococcal Vaccine : 50+ (2 of 2 - PCV) Pneumococcal Vaccine: 50+ (2 of 2 - PCV) [facility] Start: 02-04-2019 Pneumococcal Vaccine : 65+ (2 - PCV) Pneumococcal Vaccine: 65+ (2 - PCV) [facility] Start: 02-04-2019 Pneumococcal Vaccine : 65+ (2 of 2 - PCV) Pneumococcal Vaccine: 65+ (2 of 2 - PCV) [facility] Start: 2015 BONE DENSITY BONE DENSITY [facility] Start: 2015 Bone Density Screening Bone Density Screening [facility] Start: 2015 Pneumococcal Vaccine : 65+ Years (1 of 1 - PCV) Pneumococcal Vaccine: 65+ Years (1 of 1 - PCV) [facility] Start: 2015 PNEUMOCOCCAL: 65+ (1 - PCV) PNEUMOCOCCAL: 65+ (1 - PCV) [facility] Start: 2015 Screening for osteoporosis Bone Dens ity Screening [facility] Start: 2010 RSV Vaccine (1 - 1-d ose 60+ series) RSV Vaccine (1 - 1-dose 60+ series) [facility] Start: 2010 RSV Vaccine (1 - Ris k 60-74 years 1-dose series) RSV Vaccine (1 - Risk 60-74 years 1-dose series) [facility] Start: 2000 SHINGRIX VACCINE (1 of 2) MONCADA GRIX VACCINE (1 of 2) [facility] Start: 1995 COLOGUARD (FIT-DNA) COLOGUARD (FIT-D NA) [facility] Start: 1995 Colonoscopy COLONOSCOPY [facility] Start: 1995 COLORECTAL CANCER SCREENING COLORECTAL CANCER SCREENING [facility] Start: [address] COLONOGRAPHY [facility] Start: 1995 FECAL OCCULT BLOOD FECAL OCCULT BLOO D [facility] Start: 1995 Lipid 1996 panel - S akila or Plasma Lipid Screening [facility] Start: 1995 Lipid panel Lipid Screening [facility] Start: 1995 LIPID SCREEN LIPID SCREEN [facility] Start: 1995 Screening for malign ant neoplasm of colon [facility] Start: 1995 SIGMOIDOSCOPY SIGMOIDOSCOPY [facility] Start: 1990 Mammography [facility] Start: 1990 Screening for malign ant neoplasm of breast [facility] Start: 1969 Urine microalbumin profile [facility] Start: 1968 ANNUAL PCP TEAM KEY ACCOUNT COORDINATOR RAVINDRA DISEASE VISIT ANNUAL PCP TEAM CHRONIC DISEASE VISIT [facility] Start: 1968 BP CONTROLLED (<130/80) BP CONTROLLE D (<130/80) [facility] Start: 1968 HEPATITIS C SCREENING HEPATITIS C [facility] Start: 1968 Hepatitis C screening Hepatitis C [facility] Start: 1950 COVID-19 VACCINE (#1) COVID-19 VACCI NE (#1) [facility] Start: 1950 Screening for malign ant neoplasm of colon [facility] BACH SCREENING TEST BACH SCREENI NG TEST Procedures Routine Memory loss Ordered: 01/04/2025 [facility] Work Phone: Comment on above: Ordered: 01/04/2025 End: 07-23-2023 ECG COMPLETE ECG COMPLETE ECG Routine Chronic fatigue 1 Occurrences starting 07/23/2022 until 07/23/2023 [facility] Work Phone: Comment on above: 1 Occurrences starti ng 07/23/2022 until 07/23/2023 ECG COMPLETE ECG COMPLETE ECG Routine Sinus node dysfunction (HCC) Cardiac pacemaker in situ Bradycardia Ordered: 09/08/2023 [facility] Work Phone: Comment on above: Ordered: 09/08/2023 ECG COMPLETE ECG COMPLETE ECG Routine Sinus node dysfunction (HCC) Ordered: 08/31/2024 [facility] Work Phone: Comment on above: Ordered: 08/31/2024 End: 08-31-2025 Echocardiography ECHO Cardiology Routine Sinus node dysfunction (HCC) 1 Occurrences starting 08/31/2024 until 08/31/2025 [facility] Comment on above: 1 Occurrences starti ng 08/31/2024 until 08/31/2025 MG Breast - bilatera l Screening [facility] Patient Education [facility] Work Phone: Patient referral [facility] Work Phone: Renal function 1999 panel - Serum or Plasma [facility] Renal function 1999 panel - Serum or Plasma [facility] Renal function 2000 panel - Serum or Plasma [facility] US Lower extremity v ein - bilateral [facility] US Lower extremity v ein - right [facility] Regio nal [facility] Immunizations Immunization Date Immunization Notes Care Provider [facility] 08-29-2024 influenza, high dose seasonal, preservative-free DO Broderick Howard Work Phone: [facility] 08-29-2024 influenza virus vaccine, unspecified formulation Elian Jones DO Work Phone: [facility] 08-31-2023 influenza virus vaccine, unspecified formulation Randa Reilly MD Work Phone: [facility] 07-30-2022 influenza virus vaccine, split virus (incl. purified surface antigen) Niki Blades Other [facility] Other 07-30-2022 influenza virus vaccine, unspecified formulation [facility] 09-10-2021 COVID-19 mRNA-1273 (Moderna) DO Broderick Howard Work Phone: [facility] 07-30-2021 influenza virus vaccine, split virus (incl. purified surface antigen) Niki Blades Other [facility] Other 07-30-2021 influenza virus vaccine, unspecified formulation [facility] 01-14-2021 COVID-19 mRNA-1273 (Moderna) DO Broderick [employer] Work Phone: [facility] 12-17-2020 COVID-19 mRNA-1273 (Moderna) DO Broderick [employer] Work Phone: [facility] 09-03-2020 influenza virus vaccine, split virus (incl. purified surface antigen) Niki Blades Other [facility] Other 09-03-2020 influenza virus vaccine, unspecified formulation [facility] 08-23-2019 influenza virus vaccine, split virus (incl. purified surface antigen) Niki Blades Other [facility] Other 08-23-2019 influenza virus vaccine, unspecified formulation [facility] 09-07-2018 influenza virus vaccine, split virus (incl. purified surface antigen) Niki Blades Other [facility] Other 09-07-2018 influenza virus vaccine, unspecified formulation [facility] 02-04-2018 pneumococcal polysaccharide vaccine, 23 valent Niki Blades Other [facility] Payers Date Payer Category Payer Self-pay [id number] 2024 Medicare (Managed Care) 1.2. [id number] 2024 Unknown [employer] [place] [id number] 2024-Present [phone] [address] [place] [address] HMO [id number] 2024 Unknown [id number] 2021 Unknown [id number] [id number] 2015 Private Health Insurance [employer]ORY JUAREZ MEDICARE SUPPLEMENT [id number] 2015-Present [phone] [address] [place] [address] Indemnity [id number] 2013 Medicare [id number] [facility] BC/BS [id number] 1959 Medicare [id number] 2.16.840.1.303679.19 1959 Medicare [id number] 2.16.840.1.502639.19 1950 Unknown [id number] 2.840.1.262004.3.579.2 .593 1950 Unknown [id number] 2.16840.1.599402.3.579.2 .593 1950 Unknown [id number] 2.16.840.1.945543.3.579.2 .593 1950 Unknown [id number] 2.16.840.1.647182.3.579.2 .593 1950 Unknown [id number] 2.16.840.1.821875.3.579.2 .593 1950 Unknown [id number] 2.16.840.1.664463.3.579.2 .593 1950 Unknown [id number] 2.16.840.1.264152.3.579.2 .593 1950 Unknown [id number] 2.16.840.1.027074.3.579.2 .593 1950 Unknown [id number] 2.16.840.1.454132.3.579.2 .593 1950 Unknown [id number] 2.16.840.1.882099.3.579.2 .593 1950 Unknown [id number] 2.16.840.1.759219.3.579.2 .593 1950 Unknown [id number] 2.16.840.1.934365.3.579.2 .593 1950 Unknown [id number] 2.16.840.1.066212.3.579.2 .593 1950 Unknown [id number] 2.16.840.1.156618.3.579.2 .593 1950 Unknown [id number] 2.16.840.1.300097.3.579.2 .593 1950 Unknown [id number] 2.16.840.1.711426.3.579.2 .593 1950 Unknown [id number] 2.16.840.1.688692.3.579.2 .593 1950 Unknown [id number] 2.16.840.1.745694.3.579.2 .356 1950 Unknown [id number] 2.16.840.1.385841.3.579.2 .356 1950 Unknown [id number] 2.16.840.1.796147.3.579.2 .196 1950 Unknown [id number] 2.16.840.1.649834.3.579.2 .196 1950 Unknown [id number] 2.16.840.1.336182.3.579.2 .727 1950 Unknown [id number] 2.16.840.1.122927.3.579.2 .727 1950 Unknown [id number] 2.16.840.1.207155.3.579.2 .727 1950 Unknown [id number] 2.16.840.1.264348.3.579.2 .727 1950 Unknown [id number] 2.16.840.1.099124.3.579.2 .727 1950 Unknown [id number] 2.16.840.1.364099.3.579.2 .1259 1950 Unknown [id number] 2.16.840.1.828790.3.579.2 .1258 1950 Unknown [id number] 2.16.840.1.992620.3.579.2 .9 1950 Unknown [id number] 2.16.840.1.329572.3.579.2 .1258 1950 Unknown [id number] 2.16.840.1.784870.3.579.2 .9 1950 Unknown [id number] 2.16840.1.973385.3.579.2 .1258 1950 Unknown [id number] 2.16840.1.746335.3.579.2 .727 Medicare Medicare [id number] Unknown [id number] 2.16.840.1.289947.3.579.2 .531 Social History Date Type Detail Facility Start: 09-10-2022 End: 09-08-2023 Sex Assigned At [facility] Start: 02-19-2011 End: 11-24-2024 Tobacco smoking status WYIS Never smoked tobacco [facility] Start: 02-19-2011 End: 09-10-2022 Tobacco use and exposure Smokeless tobacco non-user [facility] Start: 11-28-2021 End: 05-20-2025 Alcohol intake Current non-drinker of alcohol (finding) [facility] Start: 1950 Sex Assigned At Not on file C [facility] Start: 07-13-2022 End: 09-10-2022 Exposure to SARS-CoV-2 (event) Not sure [facility] Start: 1950 Sex Assigned At Female F [facility] Start: 09-10-2022 End: 09-08-2023 History of Social function [facility] Adult Depression Screening Assessment 2 [facility] Tobacco smoking status No Smokin g Status Entered [facility] Start: 11-17-2024 End: 02-22-2025 Sex Female (finding) [facility] Start: 11-29-2024 Alcoholic beverage intake Current drinker of alcohol (finding) [facility] Medical Equipment Procedure Code Equipment Code Equipment Origin al Text Equipment Identifier Dates Plate Bn 12mm Cm f Ti 2 H Lp - [id number] Start: 08-16-2015 Pin Crss Sd Scr 1.5x4mm - [id number] Start: 08-16-2015 [id number] [employer] [id number] Start: 05-22-2015 [id number] [employer] [id number] Start: 05-22-2015 [id number] [employer] [id number] Start: 05-22-2015 Goals Date Patient Goal Desired Activity /State Personal health goal Functional Status Date Assessment Result Facility 11-02-2024 Functional Status No [facility] 08-05-2023 Functional status Patient at [facility] Work Phone: 08-19-2015 Are you deaf, or do you have serious difficulty hearing No 08/19/2015 11:02 AM Vita ElizondoRn) (Hist), RN No [facility] 08-19-2015 Are you blind, or do you have serious difficulty seeing, even when wearing glasses No 08/19/2015 11:02 AM Vita ElizondoRn) (Hist), RN No [facility] 08-19-2015 Do you have serious difficulty walking or climbing stairs No 08/19/2015 11:02 AM Vita ElizondoRn) (Hist), RN No [facility] 08-19-2015 Do you have difficul ty dressing or bathing Yes 08/19/2015 11:02 AM Vita ElizondoRn) (Hist), RN Yes [facility] 08-19-2015 Because of a physica l, mental, or emotional condition, do you have difficulty doing errands alone such as visiting a physician's office or shopping Yes 08/19/2015 11:02 AM Vita Elizondo (Rn) (Hist), RN Yes [facility] Mental Status Date Assessment Result Facility 08-05-2023 Cognitive function Cognitive Sta tus Patient at Baseline [facility] Work Phone: 08-19-2015 Because of a physica l, mental, or emotional condition, do you have serious difficulty concentrating, remembering, or making decisions No 08/19/2015 11:02 AM Vita Elizondo (Rn) (Hist), RN No [facility] Clinical Notes 01-24-2015 to 05-21-2025 Patient InstructionsFoKalin vasques [facility] - 05/21/2025 8:03 AM Elian Heath DO - 05/21/2025 8:00 AM Randa Allen MD - 04/10/2025 12:07 PM EDTPatient Instructions Note Date & Type Note Facility 05-21-2025 Instructions Jyoti Crowley MD - 05/21/2025 9:45 AM EDT Images from the original note were not included. Patient Education Section: Things to know about Mild Cognitive Impairment (MCI) What is MCI? Mild cognitive impairment (MCI) is an umbrella term meaning any brain disorder that causes trouble with memory or thinking. The word cognitive has to do with memory and thinking. The word impairment means having trouble doing something. It is normal for adults to have slight memory problems as they get older ( Normal Aging ). But the problems in MCI are more significant than those of normal aging. For example, you might forget things more often than before, or you might forget more important things, especially when compare to others at your age. Some people with MCI later develop a condition called dementia. Dementia is also the general term for a group of brain disorders that cause problems with memory and thinking, but is more serious than MCI. People with MCI usually don't have many problems doing their daily activities. But people with dementia might not be able to do their daily tasks or activities correctly - or at all in some point. What are the symptoms of MCI? Memory problems are the most common symptom of MCI. Some people have other types of thinking problems. They might have trouble concentrating, reasoning, or remembering the correct word to use. It can also be more difficult to make decisions. Some people with MCI might get lost. Some people with MCI might also feel sad, worried, or angry; act in a threatening way; or believe things that aren't true. Other people with MCI might seem less interested in activities or other things that used to be important to them. Some people with MCI are aware of their memory changes and problems. In other cases, family members, friends, or co-workers might notice these problems first. How can my doctor or nurse tell if I have MCI? -- To tell if you have MCI, your doctor or nurse will: Talk with you and your family - They will ask about your symptoms, behavior, mood, and daily activities, and how these have changed over time. They will also ask about your medical conditions and medicines. That's because some medical conditions and medicines can also cause memory problems. In older adults, depression can cause symptoms similar to MCI. Do an exam Ask questions to check your memory and thinking Your doctor might do tests to check that another medical condition isn't causing your symptoms. These tests can include: Blood tests A CT or MRI scan of your brain - These are imaging tests that can create pictures of your brain. More detailed tests to check your memory, language, and thinking - This is called neuropsychological testing because it is done to learn more about how your brain and mind are working. It involves testing how well you are able to: Speak Write and understand language Learn and remember information Use reason and logic Do tasks related to math and numbers NOTE: This type of detailed testing can take 1 to several hours. It is usually done by a doctor called a neuropsychologist. How is MCI treated? Sadly, there really aren't helpful treatments for MCI. As of now, no medicines can prevent MCI from turning into dementia. If you have a lot of memory problems, your doctor might prescribe a medicine used to treat a type of dementia called Alzheimer disease. These medicines can sometimes help improve symptoms. Plus, your doctor might suggest that you avoid certain medicines, which can impair thinking. Do people with MCI always get dementia? No. Although some people with MCI get dementia later on, some do not. There is no way to know which people with MCI will get dementia. That's why it's important to have regular follow-ups with your doctor. They can follow your symptoms to see if they change or get worse. If your symptoms do get worse, this is a sign that you are more likely to develop dementia. Although most forms of dementia cannot be treated, it can be helpful to know you are at risk. For example, if you know that your problems might affect certain daily tasks or activities, then you can get help in those areas. Plus, if you know that your condition is not likely to improve, you and your family can make plans for the future. Patient Education Section: How to slow down cognitive decline; There is science behind these. Healthy Lifestyle: The following recommendations for changes in diet and lifestyle have been shown in some studies to reduce the risk of cognitive decline in otherwise healthy and cognitively intact adults. Exercise: Going forward, we discussed exercise. Importance of getting 150 minutes of cardiovascular exercise per week (30 min - 45 min x 3-5/week) to help with cognitive impairment. However, due to your spine conditions, we need to figure out what types of exercise and how much intensity you could go. Source : www.Payward.com Dietary Modifications: Increase the amount of vegetables you eat on a daily basis, especially increasing intake of green-leafy and cruciferous vegetables (including broccoli, brussels sprouts, cabbage, and cauliflower) Taking in no more than one drink a day (<15 grams of ETOH) Choose foods with a low glycemic index: apples, dried apricots, cherries, fettuccine lentils, peanuts, soybeans Choose Brain Healthy Foods: almonds, walnuts, chicken breast, turkey, fish fruits and vegetables such as berries low fat cottage cheese, non-fat milk Avoid foods with a high glycemic index: instant rice, mashed potatoes, Egyptian fries bagels, baguettes, vanilla wafers processed cereals (Cheerios, [place]-Puffs, corn/bran flakes, Total, etc.) Avoid foods high in total fat, especially saturated fats and cholesterol Eat foods rich in [place]-3 fatty acids (fish, olive oil, nuts) For More Information on the Mediterranean and the MIND Diet Visit: https://www.deena.nih.gov/health/ wuqarpttlp-mkg-flgwgdde/what-do -if-cbcl-iyuhu-fqzk-yih-qqilmrv zxk-nwurfkxbhg-ktgxjty Source : [employer] Memory Workouts: In some studies, participation in the following activities has been shown to be beneficial in reducing the rate of cognitive decline in adults. There are likely other activities that have this effect that are not listed. The important point is to keep your mind and body active. Crossword Puzzles, Jigsaw Puzzles, Playing Cards, Checkers Learning Languages Reading (newspapers, magazines, books) Playing and/or learning a Musical Instrument Dancing (ballroom) Computer Games/Apps: Let or [employer] phone application Tasks to improve attention/working memory: Good sleep hygiene (7-8 hrs of sleep) Learning a new skill (Painting, Carpentry, Pottery, new language). Cognitive exercises (keep a daily journal, Puzzles) Physical exercise and training (30 min/day X 4 days week) Being on an Antidepressant if needed for depression Yoga, Meditation, Panda Chi Decrease alcohol intake Have a clear schedule and structure in daily routine RESEARCH ON POTENTIALLY MODIFIABLE RISK FACTORS OF DEMENTIA: Source: Dementia prevention, intervention, and care: 2020 report of the Lancet Commission Meaghan Coulter et al. The Lancet, Volume 396, Issue 16155, 889 [phone] Patient Education Section : Fall Prevention As you age you are at an increased risk of falling. Falls are more serious in older people and there are many things you can do to avoid them. To help keep from falling, you can: Make you living space safe by keeping your home clutter free and removing obstacles which could cause you to trip or fall such as furniture, cords, loose rugs. It is also best to keep your home well-lit, including night-lights to avoid tripping at night. Make your home safer - To avoid falling at home, get rid of things that might make you trip or slip. This might include furniture, electrical cords, clutter, and loose rugs. Keep your home well-lit so that you can easily see where you are going. Avoid storing things in high places so you don't have to reach or climb. Wear sturdy shoes that fit well - Wearing shoes with high heels or slippery soles, or shoes that are too loose, can lead to falls. Walking around in bare feet, or only socks, can also increase your risk of falling. Stay active - Moving your body on a regular basis can help lower your risk of falling. It might also help prevent you from getting hurt if you do fall. It is best to do a few different activities that help with both strength and balance. There are many kinds of exercise that can be safe for older people. These include walking, swimming, and Panda Chi (a Malian martial art that involves slow, gentle movements). Use a cane, walker, or other safety devices - If your doctor recommends that you use a cane or walker, be sure that it's the right size and you know how to use it. There are other devices that might help you avoid falling, too. These include grab bars or a sturdy seat for the shower, non-slip bath mats, and hand rails or treads for the stairs (to prevent slipping). If you worry that you could fall, there are also alarm devices that let you call for help if you fall and can't get up. If you fall, see your doctor right away, even if you aren't hurt. Your doctor can try to figure out what caused you to fall, and how likely you are to fall again. They will do an exam and talk to you about your health problems, medicines, and activities. They can also check how well you walk, move, and balance. Then they can suggest things you can do to lower your risk of falling again. Many older people have a hard time recovering after a fall. Doing things to prevent falling can help you to protect your health and independence. documented in this encounter [facility] 05-21-2025 Note HNO ID: [id number] Author: KALIN GUAMAN OCCA Service: ? Author Type: Consumer Loan Specialist Type: Progress Notes Filed: 05/21/2025 08:04 Note Text: Cassi Rodrigez is a 75 year old year old left handed woman Accompanied by: spouse. 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 Vital Signs: There were no vitals taken for this visit. [facility] 05-21-2025 History of Presen t illness Narrative Cassi Rodrigez is a 75 year old year old left handed woman Accompanied by: spouse. 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 Vital Signs: There were no vitals taken for this visit. Images from the original note were not included. [facility] New Patient Evaluation Cassi Rodrigez : 1950 05/21/2025 8:00 AM Chief Complaint: memory concern I had the pleasure of seeing this 75 year old year old female at the [facility]. The patient is referred by Dr. Alejandro Villar Patient is accompanied by and information obtained from Spouse and the patient, and available records in the system. Background and History of Present Illness: Summary of Chart Review; This is a 75-year-old female with a past medical history of; 1.) Pancreatic cancer, complicated by deep vein thrombosis (DVT), currently on chronic anticoagulation with warfarin. 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 She has remained seizure-free with occasional auras since surgery. She has continued antiepileptic medications including levetiracetam and zonisamide. 3.) Chronic daily pain related to degenerative spine disease, s/p right L4-L5 foraminotomy, chronic cervicalgia with multiple cervical spine surgeries, and chronic migraine with aura, requiring Botox injections and prolonged use of amitriptyline 25-50 mg daily. Previous, discontinued pain medications include Fioricet, Cymbalta, Topamax, and Depakote. In August 2011, she experienced an episode of difficulty speaking, prompting a CT scan of the brain that showed mild cerebral atrophy, considered age-appropriate. In 2014, a pre-surgical MRI brain epilepsy protocol revealed bilateral hippocampal volume loss appropriate for her age. She underwent several CT brain scans between 2014 and 2015, with ho findings including postoperative changes from right temporal craniotomy and lobectomy, no acute infarct, evidence of a prior lacunar infarct, bilateral ICAs calcifications, and mild generalized parenchymal atrophy. She was last seen in the [facility] in December 2024, where she endorsed some difficulty with memory. In January 2025, she was administered the home, online-version of the Brief Assessment of Cognition in Humans (BACH), which suggested probable cognitive impairment (Probability 74.95%). She was advised to follow up at [facility] for further evaluation of her memory concerns. Today's visit; Ms. Rodrigez has been experiencing memory difficulties over the past 6 months. She reports forgetting the names of unfamiliar places; with cues or assistance, she is sometimes able to retrieve those names. She denies getting lost or having difficulty with spatial orientation. She also reports occasional difficulty finding words or completing sentences, although she can typically self-correct and eventually produce the correct word. There is no evidence of agrammatism or significant anomia. These symptoms have remained stable and non-progressive, though she is becoming more aware of them. She continues to experience daily pain from a chronic back condition, which affects both her mood and cognition. She has been taking amitriptyline for pain management. However, per the patient's report, she is unsure whether the medication has made a noticeable effect. Her migraines remain frequent. Per records, she has never tried an anti-CGRP injection. Functionally, her physical activity is limited, and she has been advised to avoid certain forms of exercise due to her spinal condition. She previously attended physical therapy but has since discontinued it. Review of multidomain cognitive functions Domain Abnormality ? Detail Memory Yes Impaired short-term/working memory and Forgetting recent events Language No Visuospatial No Primary higher cortical visual No Attention No Execution No Praxis No Mood Yes Depressed mood, feeling down, strongly associated with pain Psychotic symptoms No Sleep and Night time behavior No She sleep well, no insomnia, no history suggesting RBD. Sleep duration about 8 hr. Not feeling refreshed but she anticipates that from medications she takes. Somatic and Mobility Yes Gait disturbance form chornic spine condition and pain during her mobility. Although no fall or central balance symptoms, no vertigo/dizziness, limited mobility mainly from spine conditions. Review of System Components Abnormality ? / Detail Weight / Appetite change No Hearing No Vision No Bowel (Constipation, Diarrhea) Yes: IBS, constipation, no medication used due to CKD concern Bladder (Frequency, Urgency, Incontinence) No Chest symptoms (Angina, Dyspnea, Chest Discomfort) No Falls, Injuries, Accidents No ADL/IADL - intact, independent, manage bill for her , Stopped driving after Epilepsy surgery following doctor's recommendation. Cognitive past history The patient has not been on a medication for their memory in the past. The patient has had prior work-up for impaired memory in the past. (BACH) Neurological past history Focal Epilepsy s/p RTL Chronic degenerative spine disease Previous and Current treatment/workup: reviewed Family History of Dementia: None, Endorsed mother with aging memory symptoms started at 94 before she at ate 89. 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 Home / Private residence Are you using any community resources to help care for yourself? No Has your caregiver accompanied you today? No Did you receive help completing this questionnaire? No If you received help, could you have completed this questionnaire on your own? N/A - I did not receive any help Activities of Daily Living (ADL) No data to display PROMIS-10 04/03/2025 12/05/2024 PROMIS 10 Health, in general Good Fair Quality of life, in general Good Fair Physical health, in general Good Fair Mental health, in general Good Good Social activities satisfaction Good Good Performing ADL's A little Not at all Social role satisfaction Good Fair Pain, on average 6 5 Fatigue, on average Moderate Mild Emotional problems Often Sometimes PHYSICAL Score 37.4 (Fair) 34.9 (Poor) MENTAL Score 41.1 (Good) 41.1 (Good) PHQ-9 05/14/2025 04/03/2025 PHQ-9 All Questions Little interest or pleasure in doing things: 1 1 Feeling down, depressed, or hopeless: 1 1 Trouble falling or staying asleep, or sleeping too much 1 0 Feeling tired or having little energy 1 1 Poor appetite or overeating 2 1 Feeling bad about yourself - or that you are a failure or have let yourself or your family down 3 1 Trouble concentrating on things, such as reading the newspaper or watching television 1 0 Moving or speaking so slowly that other people could have noticed. Or the opposite - being so fidgety or restless that you have been moving around a lot more than usual 0 1 Thoughts that you would be better off , or of hurting yourself in some way 1 0 PHQ-9 Score 11 6 (0-4) minimal depression (5-9) mild depression (10-14) moderate depression (15-19) moderately severe depression (20-27) severe depression Full History of PHQ-9 Scores PHQ-9 Score 05/14/2025 11 04/03/2025 6 12/28/2024 6 08/30/2024 5 12/22/2023 13 09/08/2022 10 09/18/2021 9 11/20/2019 19 06/12/2019 12 09/21/2018 6 Sleep 05/14/2025 02/29/2024 -- What is your average total sleep time per night over the past 4 weeks? 9 Hours What is your average total sleep time during the day over the past 4 weeks? 9 Hours Have you been diagnosed with sleep apnea? Yes Are you currently using positive airway pressure (PAP) therapy? No Snore Loudly No Tired, fatigued or sleepy in daytime Yes Stop breathing or choking/gasping during sleep No High blood pressure Yes Probability of moderate-severe sleep apnea (%) SAPS V2 49 (Sleep study not recommended) 05/14/2025 Insomnia Severity Index Difficulty falling asleep 0 Difficulty staying asleep 0 Problem waking up too early 0 Satisfied/dissatisfied with current sleep pattern 1 Sleep interferes with daily functions 2 Sleep problems noticeable to others 0 Worried/distressed about current sleep problems 2 Score 5 Caregiver-Reported No data to display Dementia Severity Rating Scale (DSRS) No data to display PAST MEDICAL HISTORY Diagnosis Date Asthma, chronic (HCC) Back pain Depression DJD (degenerative joint disease) HTN (hypertension) IBS (irritable bowel syndrome) SHELL (obstructive sleep apnea) Reflux Right leg DVT (HCC) 03/09/2013 Seizure (HCC) Seizures (HCC) ALLERGIES Allergen Reactions Lyrica [Pregabalin] Rash Dexamethasone Rash Current Outpatient Medications on File Prior to Visit Medication Sig levETIRAcetam (KEPPRA) 750 mg tablet Take 1 tablet by mouth two times a day. zonisamide (ZONEGRAN) 100 mg capsule Take 3 capsules by mouth daily at bedtime. amLODIPine (NORVASC) 5 mg tablet Take 5 [...] mouth once daily. No current facility-administered medications on file prior to visit. FAMILY HISTORY Problem Relation Age of Onset other (Liver Ca[other]) Father Breast Cancer Sister No Ocular Disease Other Social History Tobacco Use Smoking status: Never Smokeless tobacco: Never Vaping Use Vaping status: Never Used Substance Use Topics Alcohol use: No Drug use: No PHYSICAL EXAMINATION: BP 123/60 General appearance: Well appearing, alert, in no acute distress, well-hydrated, well nourished. Mental Status: Alert, oriented to person, place, and time. Follows commands. Answering questions appropriately. No dysarthria or hypophonia. Naming intact. Repetition intact. Praxis (Luria) 2/3 B/L, Normal fund of knowledge. Remote memory intact. Intact attention during encounter. No evidence of apraxia or neglect. General neuroexam Cranial Nerves: EOMI, PERRLA, no nystagmus, normal facial sensation, no facial palsy, no dysarthria, tongue in midline Motor Exam: lower-limb predominate spasticity, increased tone bilaterally. NO cog-wheeling. NO rest tremor. NO postural or intention tremor. NO bradykinesia with finger tapping bilaterally. No bradykinesia with toe tapping bilaterally. No abnormal movements, jerks. Power 5/5 UE B/L, 4/5 LE B/L limited by pain Sensory: Intact to light touch in all extremities. Pinprick, vibration, and proprioception not assessed. Romberg intact without sway. Reflexes: 2+ UE, B/L, 3+ LE, B/L Coordination: FNF with no ataxia or dysmetria. Gait: Arises independently but slow; abnormal posture - pelvic tilt, spastic gait, reduced stride length, slow speed, no parkinsonian feature, has pain on motion Brief Neuropsychiatric Evaluation: Marcial Cognitive Assessment (MoCA) Version 7.1 Total Score: 27/30 Visuospatial/Executive Alternating [place] Making: Patient successfully draws the pattern without drawing any lines that cross. (+1) Visuoconstructional Skills (Shape): Patient is unable to successfully complete the task. (0) Visuoconstructional Skills (Clock): Normal Visuospatial/Executive Score: 4/5 Naming The patient was able to name: Lion, Camel or Dromedary, Rhinoceros or Rhino Naming Score: 3/3 Memory Trials Memory Trial (1): The patient was able to correctly register: 5/5 Memory Trial (2): The patient was able to correctly register: 5/5 Attention Forward Digit Span: Correct (+1) Backward Digit Span: Correct (+1) Vigilance: Correct (+1) Attention - Serial 7's: (4 or 5) Correct subtractions (+3) Attention Score: 6/6 Language Sentence Repetition (1): Correct (+1) Sentence Repetition (2): Correct (+1) Verbal Fluency: Patient produced 13 words. (+1) Language Score: 3/3 Abstraction Abstraction (1): Patient successfully related similarity. (+1) Abstraction (2): Patient successfully related similarity. (+1) Abstraction Score: 2/2 Delayed Recall Word 1: Spontaneously recalled (+1) Word 2: Spontaneously recalled (+1) Word 3: Required multiple choice- 'anabaptism, school, hospital' (0) Word 4: Required category cue- 'type of flower' (0) Word 5: Required category cue- 'a color' (0) Delayed Recall Score: 2/5 MIS Scoring Number of words recalled spontaneously: 2 x3: 6 Number of words recalled with a category cue: 2 x2: 4 Number of words recalled with a category cue: 1 x1: 1 Total MIS: 09/29 Orientation The patient was able to answer correctly: exact date, month, year, day of the week, exact place (name of hospital, clinic, office), city. Orientation Score: / Education less than or equal to 12th grade: +1 Semantic Fluency Patient produced 14 words. MoCA Past Scores 05/21/2025 MoCA MOCA TOTAL SCORE 27 out of 30 Visuospatial/ Executive 4 Naming 3 Attention 6 Language 3 Abstraction 2 Delayed Recall 2 Orientation 6 Education Level 1 Labs: TSH Date Value 07/23/2022 1.890 mIU/L 06/08/2016 1.370 uU/mL Imaging: Most recent MRI/CT brain: MRI Report - Impression Only MRI BRAIN WWO CONT Collected: 05/15/2015 6:18 PM (Final result) Assessment and Recommendation: This is a 75-year-old female presenting with short-term memory impairment and word-finding difficulty, which improves with cues. Her symptoms have been stable and non-progressive over the past 6 months. She has a relevant neurological history of right temporal epilepsy s/p right temporal lobectomy (RTL), now well controlled. She also suffers from chronic pain due to migraine and degenerative spine disease, which appear to be major contributing factors to her functional limitations, with secondary effects on mood and cognition. She is taking amitriptyline 50 mg daily. Neurological examination reveals findings consistent with spinal pathology. On today s MoCA, she scored _27/30, with a pattern suggestive of frontoexecutive dysfunction. Given her significant history of chronic pain--likely with central sensitization--and the potential anticholinergic effects of amitriptyline, we recommend a pain management consultation to explore possible alternative treatments. Considering her limited mobility due to spinal issues, we still encourage her to remain as active as safely possible for cognitive health benefits. She is advised to follow up with us if her cognition worsens despite pain management and lifestyle modifications. PLAN - Schedule pain specialist consultation - Repeat MRI brain, if the patient returns for follow-up, ie if symptoms are getting worse. I spent a total of 60 minutes on the date of service which included preparing to see the patient, [id number] patient care, performing a medically appropriate examination, completing clinical documentation, and on counseling/ eductaing the patient and the family. - Jyoti Crowley MD Behavioral Neurology Fellow Patient is seen under the service of the faculty staff Dr. Elian Jones DO Attending Note I evaluated the patient and personally participated in the ho components. I agree with the fellow's findings and plan as documented and have discussed the case and management of the patient's care with the fellow. Spent 45 min total on combination of reviewing the case, discussing with the Fellow and face to face with the patient as well as coordinating care on 05/21/2025. Signature: Elian Jones DO Date: 05/23/2025 Time: 2:35 PM documented in this encounter [facility] 05-21-2025 Note HNO ID: [id number] Author: ELIAN JONES DO Service: ? Author Type: Physician Type: Progress Notes Filed: 05/23/2025 14:36 Note Text: [facility] Cassi Rodrigez : 1950 05/21/2025 8:00 AM Chief Complaint: memory concern I had the [facility] of [facility] this 75 year [facility] year [facility] The patient is referred by Dr. Alejandro Villar Patient is accompanied by and information obtained from Spouse and the patient, and available records in the system. Background and History of Present Illness: Summary of Chart Review; This is a 75-year-old female with a past medical history of; 1.) Pancreatic cancer, complicated by deep vein thrombosis (DVT), currently on chronic anticoagulation with warfarin. 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 She has remained seizure-free with occasional auras since surgery. She has continued antiepileptic medications including levetiracetam and zonisamide. 3.) Chronic daily pain related to degenerative spine disease, s/p right L4-L5 foraminotomy, chronic cervicalgia with multiple cervical spine surgeries, and chronic migraine with aura, requiring Botox injections and prolonged use of amitriptyline 25-50 mg daily. Previous, discontinued pain medications include Fioricet, Cymbalta, Topamax, and Depakote. In August 2011, she experienced an episode of difficulty speaking, prompting a CT scan of the brain that showed mild cerebral atrophy, considered age-appropriate. In 2014, a pre-surgical MRI brain epilepsy protocol revealed bilateral hippocampal volume loss appropriate for her age. She underwent several CT brain scans between 2014 and 2015, with ho findings including postoperative changes from right temporal craniotomy and lobectomy, no acute infarct, evidence of a prior lacunar infarct, bilateral ICAs calcifications, and mild generalized parenchymal atrophy. She was last seen in the [facility] in December 2024, where she endorsed some difficulty with memory. In January 2025, she was administered the home, online-version of the Brief Assessment of Cognition in Humans (BACH), which suggested probable cognitive impairment (Probability 74.95%). She was advised to follow up at [facility] for further evaluation of her memory concerns. Today's visit; Ms. Rodrigez has been experiencing memory difficulties over the past 6 months. She reports forgetting the names of unfamiliar places; with cues or assistance, she is sometimes able to retrieve those names. She denies getting lost or having difficulty with spatial orientation. She also reports occasional difficulty finding words or completing sentences, although she can typically self-correct and eventually produce the correct word. There is no evidence of agrammatism or significant anomia. These symptoms have remained stable and non-progressive, though she is becoming more aware of them. She continues to experience daily pain from a chronic back condition, which affects both her mood and cognition. She has been taking amitriptyline for pain management. However, per the patient's report, she is unsure whether the medication has made a noticeable effect. Her migraines remain frequent. Per records, she has never tried an anti-CGRP injection. Functionally, her physical activity is limited, and she has been advised to avoid certain forms of exercise due to her spinal condition. She previously attended physical therapy but has since discontinued it. Review of multidomain cognitive functions Domain Abnormality ? Detail Memory Yes Impaired short-term/working memory and Forgetting recent events Language No Visuospatial No Primary higher cortical visual No Attention No Execution No Praxis No Mood Yes Depressed mood, feeling down, strongly associated with pain Psychotic symptoms No Sleep and Night time behavior No She sleep well, no insomnia, no history suggesting RBD. Sleep duration about 8 hr. Not feeling refreshed but she anticipates that from medications she takes. Somatic and Mobility Yes Gait disturbance form chornic spine condition and pain during her mobility. Although no fall or central balance symptoms, no vertigo/dizziness, limited mobility mainly from spine conditions. Review of System Components Abnormality ? / Detail Weight / Appetite change No Hearing No Vision No Bowel (Constipation, Diarrhea) Yes: IBS, constipation, no medication used due to CKD concern Bladder (Frequency, Urgency, Incontinence) No Chest symptoms (Angina, Dyspnea, Chest Discomfort) No Falls, Injuries, Accidents No ADL/IADL - intact, independent, manage bill for her , Stopped driving after Epilepsy surgery following doctor's recommendation. Cognitive past history The patient has not been on a medication for their flor (more content not included)... [facility] 04-10-2025 Note HNO ID: [id number] Author: RANDA REILLY MD Service: ? Author Type: Physician Type: Procedures Filed: 04/10/2025 12:19 Note Text: BOTOX PROCEDURE NOTE UNIVERSAL PROTOCOL / SAFETY CHECKLIST Procedure to be performed: Randa Reilly MD Sign in Communication: Completed Time Out: Team Confirms the Correct Patient, Correct Procedure, Correct Site and Site Marking, Correct Position (if applicable), Prep and Dry Time (if applicable). Time: Before procedure Affirmation of Time Out: YES Sign Out Discussion: Completed Randa Reilly MD Botox procedure note Treatment # 4 Consent in EPIC Dilution: 5 units/0.1 ml ( 100 unit vial with 2 cc diluent or 200 unit vial with 4 cc diluent) Diluent: normal saline Indication: Chronic Intractable Migraine Right temporal metal plate with skin irregularity, no shunt Injection Sites Muscle Fixed Site/Fixed Dose Bilat Flame Cutting Machine Operator Helper 20 U divided in 2 sites Procerus [...] Total Units wasted: 0 Randa Reilly MD [facility] 04-10-2025 Procedure note BOTOX PROCEDURE NOTE UNIVERSAL PROTOCOL / SAFETY CHECKLIST Procedure to be performed: Randa Reilly MD Sign in Communication: Completed Time Out: Team Confirms the Correct Patient, Correct Procedure, Correct Site and Site Marking, Correct Position (if applicable), Prep and Dry Time (if applicable). Time: Before procedure Affirmation of Time Out: YES Sign Out Discussion: Completed Randa Reilly MD Botox procedure note Treatment # 4 Consent in EPIC Dilution: 5 units/0.1 ml ( 100 unit vial with 2 cc diluent or 200 unit vial with 4 cc diluent) Diluent: normal saline Indication: Chronic Intractable Migraine Right temporal metal plate with skin irregularity, no shunt Injection Sites Muscle Fixed Site/Fixed Dose Bilat Flame Cutting Machine Operator Helper 20 U divided in 2 sites Procerus [...] Total Units wasted: 0 Randa Reilly MD [facility] 04-10-2025 Procedure note BOTOX PROCEDURE NOTE UNIVERSAL PROTOCOL / SAFETY CHECKLIST Procedure to be performed: Randa Reilly MD Sign in Communication: Completed Time Out: Team Confirms the Correct Patient, Correct Procedure, Correct Site and Site Marking, Correct Position (if applicable), Prep and Dry Time (if applicable). Time: Before procedure Affirmation of Time Out: YES Sign Out Discussion: Completed Randa Reilly MD Botox procedure note Treatment # 4 Consent in EPIC Dilution: 5 units/0.1 ml ( 100 unit vial with 2 cc diluent or 200 unit vial with 4 cc diluent) Diluent: normal saline Indication: Chronic Intractable Migraine Right temporal metal plate with skin irregularity, no shunt Injection Sites Muscle Fixed Site/Fixed Dose Bilat Flame Cutting Machine Operator Helper 20 U divided in 2 sites Procerus [...] Total Units wasted: 0 Randa Reilly MD [facility] [place] documented in this encounter [facility] 04-10-2025 Note HNO ID: [id number] Author: LON ALEXANDER RN Service: ? Author Type: Registered Nurse Type: Progress Notes Filed: 04/10/2025 12:19 Note Text: Patient name and confirmed. Patient states she would like to receive Botox treatment today. 2 vials of Botox A (100 units in each) reconstituted with 2.2 cc of normal saline in each vial. Botox drawn up into four, 1 cc syringes. Each syringe containing 50 units of Botox. Assisted by: Vania Farfan RN Botox, 2 vials: Lot # [id number] Exp 08/2027 Lot # [id number] Exp 08/[address] Reilly to administer and verified order. [facility] 04-10-2025 History of Presen t illness Narrative Patient name and confirmed. Patient states she would like to receive Botox treatment today. 2 vials of Botox A (100 units in each) reconstituted with 2.2 cc of normal saline in each vial. Botox drawn up into four, 1 cc syringes. Each syringe containing 50 units of Botox. Assisted by: Vania Farfan RN Botox, 2 vials: Lot # [id number] Exp 08/2027 Lot # [id number] Exp 08/[address] Reilly to administer and verified order. PROGRESS NOTE- HEADACHE MEDICINE SERVICE DATE: April 10, 2025 Location: [facility] Participants: patient, and provider HPI: Here for follow up and Botox therapy. Migraine Characteristics: see note from September 05, 2024 Current Outpatient Medications Medication Sig levETIRAcetam (KEPPRA) 750 mg tablet Take 1 tablet by mouth two times a day. zonisamide (ZONEGRAN) 100 mg capsule Take 3 capsules by mouth daily at bedtime. amLODIPine (NORVASC) 5 mg tablet Take 5 [...] No current facility-administered medications for this visit. Current medication review: Coumadin 4 mg, chronic 2. Amitriptyline 25 mg- for IBS pain, helps, for over 1 year 3. Botox PRIOR TO TREATMENT Total migraine days per month: daily Severity: mild, moderate, severe Start date: May/2024 AFTER TREATMENT Total migraine days per month/Severity: 28 mild, 2 moderate to severe PAST MEDICAL HISTORY Diagnosis Date Asthma, chronic (HCC) Back pain Depression DJD (degenerative joint disease) HTN (hypertension) IBS (irritable bowel syndrome) SHELL (obstructive sleep apnea) Reflux Right leg DVT (HCC) 03/09/2013 Seizure (HCC) Seizures (HCC) ALLERGIES Allergen Reactions Lyrica [Pregabalin] Rash Dexamethasone Rash BP 109/72 (BP Position: Sitting) Pulse 86 Ht 157.5 cm (5' 2 ) Wt 85.6 kg (188 lb 11.4 oz) BMI 34.52 kg/m ASSESSMENT: - 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 aura - chronic cervicalgia - CKD RECOMMENDATIONS: 1. Preventive therapy: -continue Botox. See attached procedure note 2. Follow up in 3 months for Botox with me or WENDY Randa Reilly MD [facility] documented in this encounter [facility] 04-10-2025 Note HNO ID: [id number] Author: RANDA REILLY MD Service: ? Author Type: Physician Type: Progress Notes Filed: 04/10/2025 12:19 Note Text: PROGRESS NOTE- HEADACHE MEDICINE SERVICE DATE: April 10, 2025 Location: [facility] Participants: patient, and provider HPI: Here for follow up and Botox therapy. Migraine Characteristics: see note from September 05, 2024 Current Outpatient Medications Medication Sig levETIRAcetam (KEPPRA) 750 mg tablet Take 1 tablet by mouth two times a day. zonisamide (ZONEGRAN) 100 mg capsule Take 3 capsules by mouth daily at bedtime. amLODIPine (NORVASC) 5 mg tablet Take 5 [...] No current facility-administered medications for this visit. Current medication review: Coumadin 4 mg, chronic 2. Amitriptyline 25 mg- for IBS pain, helps, for over 1 year 3. Botox PRIOR TO TREATMENT Total migraine days per month: daily Severity: mild, moderate, severe Start date: May/2024 AFTER TREATMENT Total migraine days per month/Severity: 28 mild, 2 moderate to severe PAST MEDICAL HISTORY Diagnosis Date Asthma, chronic (HCC) Back pain Depression DJD (degenerative joint disease) HTN (hypertension) IBS (irritable bowel syndrome) SHELL (obstructive sleep apnea) Reflux Right leg DVT (HCC) 03/09/2013 Seizure (HCC) Seizures (HCC) ALLERGIES Allergen Reactions Lyrica [Pregabalin] Rash Dexamethasone Rash BP 109/72 (BP Position: Sitting) Pulse 86 Ht 157.5 cm (5' 2 ) Wt 85.6 kg (188 lb 11.4 oz) BMI 34.52 kg/m? ASSESSMENT: - 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 aura - chronic cervicalgia - CKD RECOMMENDATIONS: 1. Preventive therapy: -continue Botox. See attached procedure note 2. Follow up in 3 months for Botox with me or WENDY Randa Reilly MD [facility] 01-05-2025 Note HNO ID: [id number] Author: DAVINA BRENNAN RN Service: ? Author Type: Registered Nurse Type: Progress Notes Filed: 01/05/2025 12:15 Note Text: Patient name and confirmed. Patient states she would like to receive Botox treatment today. 2 vials of Botox A (100 units in each) reconstituted with 2.2 cc of normal saline in each vial. Botox drawn up into four, 1 cc syringes. Each syringe containing 50 units of Botox. Assisted by: Evonne Hamm RN Botox, 2 vials: Lot # [id number] 02/2027 Lot # [id number] 02/2027 Botox handed to Svitlana Mayfield CNP to administer and verified order. [facility] 01-05-2025 History of Presen t illness Narrative Patient name and confirmed. Patient states she would like to receive Botox treatment today. 2 vials of Botox A (100 units in each) reconstituted with 2.2 cc of normal saline in each vial. Botox drawn up into four, 1 cc syringes. Each syringe containing 50 units of Botox. Assisted by: Evonne Hamm RN Botox, 2 vials: Lot # [id number] 02/2027 Lot # [id number] 02/2027 Botox handed to Svitlana Mayfield CNP to administer and verified order. Follow-Up Onabotulinum Toxin A (BotoxTM) for Migraine Indication: Chronic Intractable Migraine Referral Expiration: 11/14/2025 Prior to the initiation of the FIRST treatment with Onabotulinum Toxin A, the patient reported the following average headache frequency over the past 3 MONTHS: Number of moderate-severe migraine days/month: 30 (daily) Number of mild migraine days/month: 0 Number of headache free days/month: 0 (0 headache-free hours) Migraine severity: 8/10 After treatment with Onabotulinum Toxin A: Number of moderate-severe migraine days/month: 2 Number of mild migraine days/month: 28 Number of headache free days/month: 0 (0 headache-free hours) Migraine severity: 7/10 Patient reduction in overall migraine days: No Patient reduction in moderate-severe migraine days: Yes Patient reduction of headache hours by 100 hours or more: No Individual has obtained clinical benefit deemed significant by individual or prescriber (Y/N): Yes Patient's quality of life and ability to perform ADLs has improved (Y/N): Yes Side effects: none Wearing off: No The patient has been assessed for disorders which could contribute to breathing or swallowing difficulty, and there is no contraindication with PREEMPT Botox. There is no documented allergic reaction/hypersensitivity to any botulinum toxin and there is no active infection at proposed injection site. HEADACHE SCORES: 02/29/2024 Headache Questions ID Migraine Screener: 3 (Positive) Initial improvement of headache after botox injection at last visit: Minimally improved 12/22/2023 08/30/2024 12/28/2024 FANTA - 2/7 SCORES FANTA-2 Score 2 1 1 FANTA-7 Score 2 02/29/2024 Migraine Specific QOL - Higher scores indicate better HRQL Role Function-Restrictive Transformed Score (range: 0-100) 34.29 Role Function-Preventive Transformed Score (range: 0-100) 55 Emotional Function Transformed Score (range: 0-100) 46.67 12/28/2024 08/30/2024 12/22/2023 PHQ-9 Score 6 5 13 There were no vitals taken for this visit. Patient name: Cassi Rodrigez : 1950 ALLERGIES Allergen Reactions Lyrica [Pregabalin] Rash Dexamethasone Rash UNIVERSAL PROTOCOL / SAFETY CHECKLIST Procedure: Onabotulinum toxin A for migraine Informed Consent Consent Obtained: Written Jenner Protocol A moment to CARE was completed SIGN IN Personnel directly involved with the procedure wore the appropriate PPE Special Equipment: N/A Patient/Surrogate Stated/Verified: Patient name, Date of , Relevant allergies and Intended procedure TIME OUT Intended patient and procedure match the source document(s) Consent documented and matches the intended procedure No relevant labs, photos, and/or imaging studies were applicable for review. No correct side/site applicable for marking and visibility. No medications required for procedure. No fire risk assessment and interventions applicable. No implant(s) inserted. SIGN OUT No specimen collected. No instruments, equipment or retained foreign bodies applicable. Post-procedure follow-up management communicated and Plan of Care Visit completed when applicable Written Consent Obtained: Written LOT #: [id number] Expiration Date: Month: Year: 2026 Second vial: LOT #: [id number] Expiration Date: Month: Year: 2026 Injection Sites Left (Units) Left (Sites) Right (Units) Right (Sites) TOTAL (Units) Flame Cutting Machine Operator Helper 5 1 5 1 10 Procerus Units: 5 Sites: 1 5 Frontalis 10 2 10 2 20 Temporalis 20 4 20 4 40 Occipitalis 15 3 15 3 30 Cervical PSP 10 2 10 2 20 Trapezius 15 3 15 3 30 Total Units used: 155 Total Units wasted: 45 Migraine Characteristics: Onset: Started when she was 30 Location: Holocephalic Quality:Throbbing, Aching, Sharp, Pressure, Exploding Associated symptoms: photophobia, phonophobia, nausea, blurred vision, neck pain, worse with movement. She says she would prefer to sit when having DOUGLASS. No changes with Valsalva maneuvers. Aura:no. Severity: 5/10 at baseline. With exacerbations of 10/10 about 15 days a month Frequency: daily for 3-4 decades. exacerbations 15 days a month. Duration of attacks: constant Prior Treatments for migraine: Cymbalta Propranolol ( for high BP, stopped due to low HR) Amitriptyline Topamax Fiorecet Tizanidine Amlodipine Keppra Zonisamide Zoloft Depakote Verapamil Benazepril Botox injections. Helped(Still daily headaches but less severe episodes). But insurance stopped paying for it. Cassi Rodrigez with chronic migraine presents for botox treatment. The skin was prepped with alcohol three times. Trigger points were identified in the muscles prior to injection. The needle was then withdrawn. The patient tolerated the procedure well and there was no evidence of procedural complications. The patient was stable post-procedure. The patient was able to ambulate and had no dyspnea upon discharge to home. I spent a total of 30 minutes on the date of the service which included preparing to see the patient, [id number] patient care, completing clinical documentation, obtaining and/or reviewing separately obtained history, counseling and educating the patient/family/caregiver, and ordering medications, tests, or procedures. Svitlana Mayfield APRN.NIC documented in this encounter [facility] 01-05-2025 Instructions Svitlana Mayfield APRN.NIC - 01/05/2025 11:47 AM EST AFTER VISIT CARE BOTOX INJECTION While these procedures can be extremely helpful as part of your headache treatment plan, they can irritate the muscles and tissues in your head, neck and shoulders. Proper follow-up care is important to avoid muscle spasms and temporary pain increase within the following 3-5 days after your clinic visit. Here are some tips to help decrease side-effects that may occur and maximize the effectiveness of your pain relief -HYDRATION Hydration is important to help nourish your muscles and tissues. Drink 60-80 oz of non caffeinated fluid at least for 3 days after your visit. -REST Rest will help avoid further irritation of muscle and tissues. Remember that you need to give your body time to adjust. NO strenuous activity for at least the first 24 hours after your visit. Gentle stretching, yoga, meditation or even swimming is OK and encouraged. -ICE/HEAT Since these procedures irritate muscles, there can be some swelling. Alternating ice and heat every 3-5 times per day may help decrease this, while also optimizing pain relief Use cool gel packs for ice for 10 min. Use a warm moist towel covered with a dry towel on neck and shoulders. Alternate stretching each side of the neck. -STRETCHING Slow, gentle stretching of the neck and shoulders once every hour is helpful to avoid muscle spasms. -TREAT MUSCLE SPASMS If you are already prescribed a muscle relaxer such as baclofen, tizanidine or flexeril, use as directed. If you do not have one, talk to your provider to find out if this would be safe for you to use. Do not rub or massage the area for 48-72 hours. If you are paying out of pocket for Botox go online to Botox Savings Program and see if you qualify for reimbursement. Return in 3 months for your next Botox Injection documented in this encounter [facility] 01-05-2025 Note HNO ID: [id number] Author: SVITLANA MAYFIELD APRN.CNP Service: ? Author Type: Nurse Practitioner Type: Progress Notes Filed: 01/05/2025 12:15 Note Text: Follow-Up Onabotulinum Toxin A (BotoxTM) for Migraine Indication: Chronic Intractable Migraine Referral Expiration: 11/14/2025 Prior to the initiation of the FIRST treatment with Onabotulinum Toxin A, the patient reported the following average headache frequency over the past 3 MONTHS: Number of moderate-severe migraine days/month: 30 (daily) Number of mild migraine days/month: 0 Number of headache free days/month: 0 (0 headache-free hours) Migraine severity: 8/10 After treatment with Onabotulinum Toxin A: Number of moderate-severe migraine days/month: 2 Number of mild migraine days/month: 28 Number of headache free days/month: 0 (0 headache-free hours) Migraine severity: 7/10 Patient reduction in overall migraine days: No Patient reduction in moderate-severe migraine days: Yes Patient reduction of headache hours by 100 hours or more: No Individual has obtained clinical benefit deemed significant by individual or prescriber (Y/N): Yes Patient's quality of life and ability to perform ADLs has improved (Y/N): Yes Side effects: none Wearing off: No The patient has been assessed for disorders which could contribute to breathing or swallowing difficulty, and there is no contraindication with PREEMPT Botox. There is no documented allergic reaction/hypersensitivity to any botulinum toxin and there is no active infection at proposed injection site. HEADACHE SCORES: 02/29/2024 Headache Questions ID Migraine Screener: 3 (Positive) Initial improvement of headache after botox injection at last visit: Minimally improved 12/22/2023 08/30/2024 12/28/2024 FANTA - 2/7 SCORES FANTA-2 Score 2 1 1 FANTA-7 Score 2 02/29/2024 Migraine Specific QOL - Higher scores indicate better HRQL Role Function-Restrictive Transformed Score (range: 0-100) 34.29 Role Function-Preventive Transformed Score (range: 0-100) 55 Emotional Function Transformed Score (range: 0-100) 46.67 12/28/2024 08/30/2024 12/22/2023 PHQ-9 Score 6 5 13 There were no vitals taken for this visit. Patient name: Cassi Rodrigez : 1950 ALLERGIES Allergen Reactions Lyrica [Pregabalin] Rash Dexamethasone Rash UNIVERSAL PROTOCOL / SAFETY CHECKLIST Procedure: Onabotulinum toxin A for migraine Informed Consent Consent Obtained: Written Jenner Protocol A moment to CARE was completed SIGN IN Personnel directly involved with the procedure wore the appropriate PPE Special Equipment: N/A Patient/Surrogate Stated/Verified: Patient name, Date of , Relevant allergies and Intended procedure TIME OUT Intended patient and procedure match the source document(s) Consent documented and matches the intended procedure No relevant labs, photos, and/or imaging studies were applicable for review. No correct side/site applicable for marking and visibility. No medications required for procedure. No fire risk assessment and interventions applicable. No implant(s) inserted. SIGN OUT No specimen collected. No instruments, equipment or retained foreign bodies applicable. Post-procedure follow-up management communicated and Plan of Care Visit completed when applicable Written Consent Obtained: Written LOT #: [id number] Expiration Date: Month: Year: 2026 Second vial: LOT #: [id number] Expiration Date: Month: Year: 2026 Injection Sites Left (Units) Left (Sites) Right (Units) Right (Sites) TOTAL (Units) Flame Cutting Machine Operator Helper 5 1 5 1 10 Procerus Units: 5 Sites: 1 5 Frontalis 10 2 10 2 20 Temporalis 20 4 20 4 40 Occipitalis 15 3 15 3 30 Cervical PSP 10 2 10 2 20 Trapezius 15 3 15 3 30 Total Units used: 155 Total Units wasted: 45 Migraine Characteristics: Onset: Started when she was 30 Location: Holocephalic Quality:Throbbing, Aching, Sharp, Pressure, Exploding Associated symptoms: photophobia, phonophobia, nausea, blurred vision, neck pain, worse with movement. She says she would prefer to sit when having DOUGLASS. No changes with Valsalva maneuvers. Aura:no. Severity: 5/10 at baseline. With exacerbations of 10/10 about 15 days a month Frequency: daily for 3-4 decades. exacerbations 15 days a month. Duration of attacks: constant Prior Treatments for migraine: Cymbalta Propranolol ( for high BP, stopped due to low HR) Amitriptyline Topamax Fiorecet Tizanidine Amlodipine Keppra Zonisamide Zoloft Depakote Verapamil Benazepril Botox injections. Helped(Still daily headaches but less severe episodes). But insurance stopped paying for it. Cassi Rodrigez with chronic migraine presents for botox treatment. The skin was prepped with alcohol three times. Trigger points were identified in the muscles prior to injection. The needle was then withdrawn. The patient tolerated the procedure well and there was no evidence of procedural (more content not included)... [facility] 01-04-2025 History of Presen t illness Narrative [facility] Patient Name: Cassi Rodrigez Date of : 1950 ESTABLISHED EPILEPSY CLINIC NOTE 01/04/2025 2:00 PM Reason for Visit: Follow Up Clinical Summary: Ms. Rodrigez is a 74 year old right-handed female seen in [facility]. There is no one accompanying the patient during today's visit. Classification Summary HISTORY OF PRESENT ILLNESS Handedness: right-handed Age of onset: Seizure History and Evolution [...] no clear triggers, unprovoked. 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 No auras since last visit. Some difficulty with memory. Not affecting function. Kidney specialist- she followed up with nephrology consult for decreased GFR. Put you on iron and vitamin D. Will follow up no specific recommendations- did imaging and right kidney shrunk. Spine surgery just completed surgery. Complicated by a hematoma in the right groing area, just letting resolve but stable. Back procedure helped. ZNS 300mg qHS LEV 750mg BID Tolerating medicine, compliant, needs refills on medicine. Coumadin continued, last numb 3.8, on hold to get to normal therapeutic range. LEV level 06/29/2024: 59.9 GFR 31 Total # of Current Anti-seizure Medications: Side Effects to Current Anti-seizure Medications: Seizure Frequency at First Visit: Longest Seizure-free Interval: CURRENT OUTPATIENT ANTISEIZURE MEDICATIONS (as of the start of the encounter) zonisamide (ZONEGRAN) 100 mg capsule Take 3 capsules by mouth daily at bedtime. levETIRAcetam (KEPPRA) 750 mg tablet Take 1 tablet by mouth two times a day. Prior Anti-seizure Therapies: Trial Adequacy: Max Daily Dose Achieved: Side Effects: Effectiveness: Comments: Gabapentin Levetiracetam Zonisamide Comorbidities: Episode Description: Patient Entered Data: EPILEPSY SCORE 12/28/2024 9:39 AM 12/28/2024 9:38 AM 12/28/2024 9:37 AM First answer obtained - 11/20/2019 11:07 PM PHQ-9 SCORE - - - - FANTA 2 SCORE 1 [Negative Anxiety Screen] - - - FANTA 7 SCORE - - - - QOLIE-10 SCORE (0=worst; 100=best QoL - higher scores represent better function) - - - - LSSS SCORE (0- no seizures 100- most severe possible seizures) - - - - C-SSRS SCREEN - - - - On average, how many hours of sleep do you get in a 24-hour period? - 8 - - PROMIS Sleep Disturbance T-SCORE - - - 54 [within normal limits] Have you been diagnosed with Sleep Apnea? 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 Developmental Delay No Family history of seizures No Febrile Seizure No Complications No Stroke No Traumatic Brain Injury No Previous Epilepsy Evaluations Date: 01 Nov 2018 Duration: 24 minutes Requested by: Alejandor Villar History synopsis 68 yo patient with [...] - 1.02 mg/dL 1.60 High TBH EGFR-AF NAURUAN >=60 38 Low TBH EGFR-NON AF NAURUAN >=60 32 Low BUN CREATININE RATIO 15.0 CALCIUM 8.5 - 10.1 mg/dL 8.4 Low 05/05/24 Other caregivers: Primary Care Provider: Broderick Howard, DO Current Outpatient Medications Medication Sig levETIRAcetam (KEPPRA) 750 mg tablet Take 1 tablet by mouth two times a day. zonisamide (ZONEGRAN) 100 mg capsule Take 3 capsules by mouth daily at bedtime. amLODIPine (NORVASC) 5 mg tablet Take 5 [...] [Pregabalin] Rash Dexamethasone Rash PAST MEDICAL HISTORY Diagnosis Date Asthma, chronic Back pain Depression DJD (degenerative joint disease) HTN (hypertension) IBS (irritable bowel syndrome) SHELL (obstructive sleep apnea) Reflux Right leg DVT (HCC) 03/09/2013 Seizure (HCC) Seizures (HCC) PAST SURGICAL HISTORY Procedure Laterality Date ANTERIOR INTERBODY FUSION, CERVICAL APPENDECTOMY CHOLECYSTECTOMY PAST SURGICAL HISTORY OF 08/16/15 right frontal lobectomy FAMILY HISTORY Problem Relation Age of Onset other (Liver Ca[other]) Father Breast Cancer Sister No Ocular Disease Other SOCIAL HISTORY: -Lives in [place], [place] -Patient lives alone? -Vocation: -Education: -Cigarette, alcohol, substance use: -Functional status: -Patient driving? Review of Systems All other systems reviewed and are negative. VITAL SIGNS: BP 127/61 Pulse 86 Ht 157.5 cm (5' 2 ) Wt 87 kg (191 lb 12.8 oz) BMI 35.08 kg/m General Examination: General Exam Neurological Exam Mental Status Alert, fully oriented, attentive, with normal cognition, memory, speech and affect. Cranial Nerves Extraocular movements normal. No nystagmus, no ptosis, and pupils equal. Face symmetrical. Tongue normal. IMPRESSION: 74 year old wit right temporal lobe epilepsy, s/p RTLE with ximena 1a outcome. Stable on epilepsy, and meds. Some memory complaint and will get bach. Renals issues remain uncharged, under assessment but will monitor to determine if adjustment of keppra dosing will be needed in the future. The patient's compliance with therapy has been: Excellent PLAN: Data reviewed as above including: electronic medical record, outside records Testing Ordered none Education Patient was given my clinic contact information. It is reasonable for the patient to continue driving based on good compliance with antiseizure medication and current seizure control. Medical Management Continue current medications. Prescriptions sent to pharmacy. The possibility of serious and adverse reactions were discussed in detail as well as proper use of medication. I discussed that not taking this medication as directed could worsen seizures and can be dangerous. I discussed the risks, benefits and alternatives of the medical plan with the patient. Questions were answered. The patient agreed with the plan as discussed. FOLLOW-UP: Return in about 1 year (around 01/04/2026). I spent a total of 20 minutes on the date of the service which included: preparing to see the patient [id number] patient care completing clinical documentation obtaining and/or reviewing separately obtained history counseling and educating the patient/family/caregiver ordering medications, tests, or procedures independently interpreting results (not separately reported) communicating results to the patient/family/caregiver Alejandro Villar MD, PhD cc: Primary Care Physician: Broderick Howard DO [address] [place] [address] Referring: Patient: Ms. Cassi Rodrigez [phone] [address] documented in this encounter [facility] 01-04-2025 Note HNO ID: [id number] Author: ALEJANDRO VILLAR MD, PhD Service: ? Author Type: Physician Type: Progress Notes Filed: 01/04/2025 14:17 Note Text: [facility] Patient Name: Cassi Rodrigez Date of : 1950 ESTABLISHED EPILEPSY CLINIC NOTE 01/04/2025 2:00 PM Reason for Visit: Follow Up Clinical Summary: Ms. Rodrigez is a 74 year old right-handed female seen in [facility]. There is no one accompanying the patient during today's visit. Classification Summary HISTORY OF PRESENT ILLNESS Handedness: right-handed Age of onset: Seizure History and Evolution [...] no clear triggers, unprovoked. 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 No auras since last visit. Some difficulty with memory. Not affecting function. Kidney specialist- she followed up with nephrology consult for decreased GFR. Put you on iron and vitamin D. Will follow up no specific recommendations- did imaging and right kidney shrunk. Spine surgery just completed surgery. Complicated by a hematoma in the right groing area, just letting resolve but stable. Back procedure helped. ZNS 300mg qHS LEV 750mg BID Tolerating medicine, compliant, needs refills on medicine. Coumadin continued, last numb 3.8, on hold to get to normal therapeutic range. LEV level 06/29/2024: 59.9 GFR 31 Total # of Current Anti-seizure Medications: Side Effects to Current Anti-seizure Medications: Seizure Frequency at First Visit: Longest Seizure-free Interval: CURRENT OUTPATIENT ANTISEIZURE MEDICATIONS (as of the start of the encounter) zonisamide (ZONEGRAN) 100 mg capsule Take 3 capsules by mouth daily at bedtime. levETIRAcetam (KEPPRA) 750 mg tablet Take 1 tablet by mouth two times a day. Prior Anti-seizure Therapies: Trial Adequacy: Max Daily Dose Achieved: Side Effects: Effectiveness: Comments: Gabapentin Levetiracetam Zonisamide Comorbidities: Episode Description: Patient Entered Data: EPILEPSY SCORE 12/28/2024 9:39 AM 12/28/2024 9:38 AM 12/28/2024 9:37 AM First answer obtained - 11/20/2019 11:07 PM PHQ-9 SCORE - - - - FANTA 2 SCORE 1 [Negative Anxiety Screen] - - - FANTA 7 SCORE - - - - QOLIE-10 SCORE (0=worst; 100=best QoL - higher scores represent better function) - - - - LSSS SCORE (0- no seizures 100- most severe possible seizures) - - - - C-SSRS SCREEN - - - - On average, how many hours of sleep do you get in a 24-hour period? - 8 - - PROMIS Sleep Disturbance T-SCORE - - - 54 [within normal limits] Have you been diagnosed with Sleep Apnea? 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 [facility] 12-13-2024 History of Presen t illness Narrative Images from the original note were not included. Cassi Rodrigez is a 74 y.o. female presents for PCP requested pt. be seen again for blisters on her abdomen HPI: HPI Cassi was referred back for 2 blisters that developed on the RLQ abdominal wall. She denies any new injury or burn to the area. OBJECTIVE: Physical Exam Abdominal: Comments: Right lower quad she has 2 superficial fluid/blood filled blisters on the abdominal wall. The overall ecchymosis is improved, and she has no cellulitis. ASSESSMENT AND PLAN: Assessment/Plan Problem List Items Addressed This Visit Abdominal wall hematoma - Primary The abdominal wall hematoma is resolving. She did develop 2 fluid/filled superficial blisters on the abdominal wall without erythema or cellulitis. I discouraged her from popping them as it is providing a sterile covering to the injured skin. I explained that eventually they will pop on their own at which time she should keep the area covered with a DSD until it heals documented in this encounter [facility] 12-11-2024 Telephone encounter Note The following approved medication requests have been transmitted electronically. Requested Prescriptions Signed Prescriptions Disp Refills zonisamide (ZONEGRAN) 100 mg capsule 270 capsule 1 Sig: Take 3 capsules by mouth daily at bedtime. Authorizing Provider: ALEXI COLINDRES PA-C [facility] 12-11-2024 Miscellaneous Notes The following approved medication requests have been transmitted electronically. Requested Prescriptions Signed Prescriptions Disp Refills zonisamide (ZONEGRAN) 100 mg capsule 270 capsule 1 Sig: Take 3 capsules by mouth daily at bedtime. Authorizing Provider: ALEXI COLINDRES PA-C Prescription Refill: Requested by: patient Please E-Scribe Caller Contact Number: [phone] (home) Pharmacy Name: [facility] Pharmacy Number: [phone] Generic/ brand: generic 30 or 90 day supply requested: 90 Last appointment: 06/29/24 Next Appointment: 01/04/[address] guido Rodrigez [id number] [address] [address] documented in this encounter [facility] 12-11-2024 Telephone encounter Note Prescription Refill: Requested by: patient Please E-Scribe Caller Contact Number: [phone] (home) Pharmacy Name: [facility] Pharmacy Number: [phone] Generic/ brand: generic 30 or 90 day supply requested: 90 Last appointment: 06/29/24 Next Appointment: 01/04/[address] villar Cassi Rodrigez [id number] [facility] [id number] [facility] 11-29-2024 History of Presen t illness Narrative Images from the original note were not included. Cassi Rodrigez 1950 Cassi Rodrigez is a 74 y.o. female presents with chief complaint of Large abdominal hematoma HPI: HPI Cassi states she had a lumbar laminectomy on 11/02/24. A week later she noticed that her stomach was hard and black & blue. It is sore to move. She went to her PCP who put her on an antibiotic and sent her to the ER for a CT and blood work. She was on Warfarin and was told by the ER to hold the medication for 5 days. SUBJECTIVE: MEDICATIONS: ALLERGIES Current Outpatient Medications Medication Instructions amitriptyline (Elavil) 10 MG tablet Daily at bedtime amLODIPine (Norvasc) 5 MG tablet Daily carvedilol (Coreg) 12.5 MG tablet Twice daily doxycycline (VIBRAMYCIN) 100 mg, 2 times daily Enoxaparin Sodium 100 MG/ML solution prefilled syringe INJECT 90 MG SUBCUTANEOUSLY TWICE A DAY DIRECTED ergocalciferol (Vitamin D2) 1.25 MG (38873 UT) capsule TAKE 1 CAPSULE BY MOUTH ONCE EVERY WEEK ferrous sulfate 325 (65 Fe) MG tablet 1 tablet, Every 48 hours levETIRAcetam (Keppra) 1000 MG tablet Every 12 hours Linzess 72 mcg, Daily losartan (Cozaar) 25 MG tablet Every morning omeprazole (PriLOSEC) [address] capsule Every morning ondansetron (Zofran) 4 MG tablet Take by mouth ondansetron ODT (Zofran-ODT) 4 MG disintegrating tablet DISSOLVE 1 TABLET IN MOUTH EVERY 6 HOURS NEEDED FOR NAUSEA traMADol (Ultram) 50 MG tablet Twice daily venlafaxine XR (Effexor XR) 150 MG 24 hr capsule .COMPLEX warfarin (Coumadin) 4 MG tablet zonisamide (Zonegran) 100 MG capsule Daily Allergies Allergen Reactions Pregabalin Rash and Unknown Dexamethasone Rash and Unknown Rifaximin Rash PAST MEDICAL HISTORY: SOCIAL HISTORY SURGICAL HISTORY: Past Medical History: Diagnosis Date Bradycardia Chronic kidney disease 2023 DVT (deep vein thrombosis) in RT LE Epilepsy (CMS/HCC) History of transfusion 2010 Hypertension (CMS/HCC) Pancreatic cancer (CMS/HCC) Pancreatitis 2010 Social History Tobacco Use Smoking status: Never Smokeless tobacco: Never Substance Use Topics Alcohol use: Yes Alcohol/week: 2.0 standard drinks of alcohol Types: 2 Glasses of wine per week Drug use: Never Past Surgical History: Procedure Laterality Date A-V CARDIAC PACEMAKER INSERTION APPENDECTOMY BRAIN SURGERY 2014 FOR EPILEPTIC SEIZURES CERVICAL SPINE SURGERY X3 CHOLECYSTECTOMY EYE SURGERY 2023 LUMBAR SPINE SURGERY X3 ROTATOR CUFF REPAIR Left 2021 LT RCR-DR VELASQUEZ WHIPPRAMY PROCEDURE W/ LAPAROSCOPY 2010 FOR PACREATIC CANCER FAMILY HISTORY Family History Problem Relation Name Age of Onset Liver cancer Father Scottie Andujar Cancer Father Scottie Andujar Breast cancer Sister Cancer Brother Federico Andujar Cancer Sister Hugo Tobar REVIEW OF SYMPTOMS: Review of Systems Constitutional: Negative for diaphoresis and unexpected weight change. HENT: Negative for hearing loss, tinnitus and voice change. Respiratory: Negative for shortness of breath. Cardiovascular: Negative for chest pain and palpitations. Gastrointestinal: Positive for nausea (Since Whipple). Musculoskeletal: Negative for arthralgias. Neurological: Positive for dizziness. Negative for seizures and headaches. Psychiatric/Behavioral: Depression All other systems reviewed and are negative. Hematological: Negative for adenopathy. Does not bruise/bleed easily. OBJECTIVE: Visit Vitals BP 125/85 Ht 5' 2 Wt 193 lb BMI 35.30 kg/m Smoking Status Never BSA 1.96 m Physical Exam HENT: Head: Normocephalic. Cardiovascular: Rate and Rhythm: Normal rate and regular rhythm. Pulmonary: Effort: Pulmonary effort is normal. Breath sounds: Normal breath sounds. Abdominal: General: Abdomen is flat. Bowel sounds are normal. Palpations: Abdomen is soft. Comments: Right lower quad firm mass 17 x 8 cm consistent with hematoma seen on CT Skin: General: Skin is warm and dry. Neurological: Mental Status: She is alert. ASSESSMENT AND PLAN: Assessment/Plan Problem List Items Addressed This Visit Abdominal wall hematoma - Primary Cassi had laminectomy in October and had Lovenox injections. Following that she restarted her Coumadin and developed a right lower abdominal wall hematoma. She had a CT that showed a heterogeneous collection in the abdominal wall consistent with a hematoma. I explained that if the hematoma is not organized it would not be drainable surgically. I also explained that she would need to be off her Coumadin for the surgery and for a time after that. I also discussed the possibility of having and open wound that may require daily packing. The other treatment option is to allow the are to resolve by itself. Since it is not expanding or infected there is no need to operate at this time. If she should develop signs of infection surgery would be indicated. She understood and was okay with observation. I suggested using a heating pad over the area. I'll see her PRN documented in this encounter [facility] 11-24-2024 Radiology Diagnostic study note [facility] [place] [address] CT Scan Report Signed Patient: Cassi Rodrigez MR#: [id number] : 1950 Acct:[id number] Age/Sex: 74 / F ADM Date: 5 Loc: ER Room: Type: [facility] ER Attending Dr: Copies to: Kristel Low APRN~ Ordering Provider: Kristel Low APRN Date of Service: 11/24/24 CT/CT abdomen pelvis wo con: r/o abscess abd CT abdomen pelvis wo con 11/24/2024 3:05 PM SIGNS AND SYMPTOMS: Bruising, swelling, pain in right lower quadrant TECHNIQUE: Multidetector ct axial images of the abdomen and pelvis were obtainedwithout IV contrast. Multiplanar reformats were performed and reviewed to further define anatomy and possible pathology. CT was performed with one or more of the following dose reduction techniques: Automated exposure control, adjustment of the mA and/or kV according to patient size, or use of iterative reconstruction technique. COMPARISON: None. FINDINGS: Lower Chest: There is a small left-sided pleural effusion. There is atelectasisat the left lung base. There is an 11 mm calcified granuloma in the right middle lobe. ABDOMEN: Liver: Calcified granulomas are noted in this liver. Bile Ducts: There is intrahepatic biliary which is presumably secondary to priorcholecystectomy/Whipple procedure. Gallbladder: Previously removed. Pancreas: Partially resected Spleen: Calcified granulomas are noted in the spleen. Adrenals: Within normal limits. Kidneys: There is right-sided renal cortical atrophy. Pelvis: Reproductive Organs: No pelvic masses. Ureters: Within normal limits. Bladder: Within normal limits. Bowel: Normal caliber. Postoperative changes are noted along the stomach consistent with the history of Whipple. Mesenteric Lymph Nodes: No enlarged mesenteric lymph nodes. Peritoneum: No ascites or free air, no fluid collection. Vessels: Atherosclerotic changes are noted in the abdominal aorta and its branches. There is an IVC filter. Retroperitoneum: Within normal limits. Abdominal Wall: There is a heterogeneous collection in the anterior abdominal wall to the right of midline near the pelvis measuring 12.3 x 4.0 x 6.5 cm in greatest dimension. This appears to represent a heterogeneous hematoma. Bones: Postoperative changes are noted at L5-S1. Degenerative changes are notedin the thoracolumbar spine. CT/CT abdomen pelvis wo con IMPRESSION: There is a heterogeneous collection in the anterior abdominal wall to the right of midline near the pelvis measuring 12.3 x 4.0 x 6.5 cm in greatest dimension. This appears to represent a heterogeneous hematoma. Postoperative changes are noted consistent with the history of a Whipple procedure. There is renal cortical atrophy, right greater than left. There is a small left-sided pleural effusion with adjacent atelectasis. Additional chronic appearing findings are noted as above. Impression dictated by: Arnel Simon M.D.11/24/2024 3:48 PM Dictation Location: [place] [address] Transcribed By: [facility] 11/24/24 154 Dictated By: Arnel Simon II, MD 11/24/24 153 Signed By: 11/24/24 154 [facility] Work Phone: 11-24-2024 Evaluation note Diagnosis Onset Date Resolution Adverse effect of anticoagulant antagonists, vitamin k and other coagulants acute November 10:35am Cellulitis acute November 24, 2024 10:35am Abscess of abdominal wall deleted November 24 10:35am Adverse effect of anticoagulant antagonists, vitamin k and other coagulants acute November 10:54am Cellulitis acute November 28, 2024 10:54am Abdominal hematoma inactive r y 2024 10:54am Adverse effect of anticoagulant antagonists, vitamin k and other coagulants acute November 9:51am Blister (nonthermal) of abdominal wall, initial encounter acute December 08 9:51am Hematoma of abdominal wall acute December 08 9:51am Bilateral lower extremity edema acute February 21, 2025 1:49pm History of DVT (deep vein thrombosis) acute February 21, 2025 1:49pm [facility] Work Phone: 1(607) 876-306101-10-2025 Evaluation note* Diagnosis Onset Date Resolution Status Admit Date Adverse effect of anticoagul ant antagonists, vitamin k and other coagulants acute November 24 10:35am Cellulitis acute November 24, 2024 10:35am Abscess of abdominal wall deleted November 24, 2024 10:35am Adverse effect of anticoagul ant antagonists, vitamin k and other coagulants acute November 28 10:54am Cellulitis acute November 28, 2024 10:54am Abdominal hematoma inactive 2024 10:54am Adverse effect of anticoagul ant antagonists, vitamin k and other coagulants acute December 08 9:51am Blister (nonthermal) of abdo lori wall, initial encounter acute December 08, 2024 9:51am Hematoma of abdominal wall acute December 08, 2024 9:51am Bilateral lower extremity edema acut e February 21, 2025 1:49pm History of DVT (deep vein thrombosis) acute February 21, 2025 1:49pm Anemia of renal disease acute A pri2024 10:30am Bilateral lower extremity edema acut e February 22, 2025 10:30am CKD (chronic kidney disease) stage 4, GFR 15-29 ml/min acute February 22, 2025 10:30am Hypertensive chronic kidney disease with stage 1 through stage 4 chronic ki acute February 22, 10:30am Secondary hyperparathyroidism acute February 22, 2025 10:30am [facility] Work Phone: 1(303) 965-950112-30-2024 NoteProgress Note-Physician Patient: CASSI RODRIGEZ Age: 74 years Sex: Female : 1950 Associated Diagnoses: None Author: Sunny Ramirez Jr., DO Postoperative Information Postoperative disposition: Postoperative disposition: Home. Optimetrix number: Optimetrix number [phone]. Anesthetic utilized: General. Physical Examination Vital Signs 11/02/2024 16:43 EST Systolic Blood Pressure 129 mmHg Diastolic Blood Pressure 56 mmHg LOW Mean Arterial Pressure, Monitered 80 mmHg 11/02/2024 16:20 EST Temperature Axillary 36.4 DegC Heart Rate Monitored 60 bpm Respiratory Rate Monitored 11 br/min Systolic Blood Pressure 139 mmHg Diastolic Blood Pressure 67 mmHg Blood Pressure Location Right arm Mean Arterial Pressure, Cuff 91 mmHg SpO2 97 % 11/02/2024 16:05 EST Heart Rate Monitored 63 bpm Respiratory Rate Monitored 13 br/min Systolic Blood Pressure 138 mmHg Diastolic Blood Pressure 66 mmHg Blood Pressure Location Right arm Mean Arterial Pressure, Cuff 90 mmHg SpO2 100 % 11/02/2024 16:00 EST Heart Rate Monitored 60 bpm Respiratory Rate Monitored 15 br/min Systolic Blood Pressure 147 mmHg HI Diastolic Blood Pressure 74 mmHg Blood Pressure Location Right arm Mean Arterial Pressure, Cuff 98 mmHg Hourly Rounding Yes Promise to Return Yes SpO2 100 % 11/02/2024 15:55 EST Heart Rate Monitored 60 bpm Respiratory Rate Monitored 21 br/min Systolic Blood Pressure 128 mmHg Diastolic Blood Pressure 56 mmHg LOW Blood Pressure Location Right arm Mean Arterial Pressure, Cuff 80 mmHg SpO2 100 % 11/02/2024 15:49 EST Temperature Axillary 36.6 DegC Heart Rate Monitored 63 bpm Respiratory Rate Monitored 12 br/min Systolic Blood Pressure 153 mmHg HI Diastolic Blood Pressure 66 mmHg Blood Pressure Location Right arm Mean Arterial Pressure, Cuff 95 mmHg SpO2 100 % Pain Assessment: 11/02/2024 16:20 EST Pain Symptoms Self Report Yes, able to self report Primary Pain Location Leg Primary Pain Laterality Right Patient Preferred Pain Tool Numeric rating Numeric Pain Scale 5 = Moderate pain Numeric Pain Score 5 11/02/2024 15:49 EST Pain Symptoms Self Report Yes, able to self report Primary Pain Location Leg Primary Pain Laterality Right Verbal Descriptor Pain Scale Mild pain . General: Awake, Alert, Appropriate. Respiratory: Adequate air exchange, Non-labored. Cardiovascular: Stable, Normal peripheral perfusion. Neurological: Neurologic exam at baseline. No changes.. Assessment Anesthetic outcome No anesthetic complications noted. No nausea/vomiting. Review / Management Condition: Stable. Plan Transfer/Discharge: Transfer/Discharge Discharge when meets criteria ( From PACU to Ambulatory Surgery Unit, and To home ).[facility]Comment on above:Result Comment: Electronically Signed By: Sunny Ramriez Jr., DO\.br\Date and Time Signed: 11/13/24 07:01 [id number] NoteDischarge Summary Patient: CASSI RODRIGEZ Age: 74 years Sex: Female : 1950 Associated Diagnoses: None Author: Shashi De Souza MD Discharge Information Discharge Summary Information: Admit Date/Time: 11/02/24 10:13 Discharge Date/Time: 11/03/24 18:13 Admitting Physician: Shashi De Souza MD Referring Physician for Admission: Shashi De Souza MD Consulting Physicians: Dar NUNEZ MD Admitting Diagnoses: Discharge Diagnoses: Essential (primary) hypertension Presence of cardiac pacemaker Personal history of other venous thrombosis and embolism MCC (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 of anticoagulants Epilepsy, unspecified, not intractable, without status epilepticus Unspecified asthma, uncomplicated Gastro-esophageal reflux disease without esophagitis Chronic kidney disease, stage 3 unspecified Prescription and Home Meds: acetaminophen (Tylenol) 500 mg, Oral, q6hr, PRN: as needed for pain, 0 Refill(s) acetaminophen-oxycodone (Percocet 5 mg-325 mg oral tablet) 1 tab(s), Oral, TID, for 7 day(s), PRN: Pain 4-7, 21 tab(s), 0 Refill(s) amitriptyline (amitriptyline 50 mg Tab) 50 mg, 1 tab(s), Oral, Once a day (at bedtime), 0 Refill(s) amlodipine 5 mg, Oral, Daily, 0 Refill(s) carvedilol 12.5 mg, Oral, BID, 0 Refill(s) enoxaparin (enoxaparin 100 mg/mL SubQ Gloria) 100 mg, SubCutaneous, q12hr, Bridging with Warfarin for surgery, 0 Refill(s) ergocalciferol (Vitamin D) 50,000 International_Unit, Oral, qWeek, 0 Refill(s) ferrous sulfate 325 mg, Oral, Every other day, 0 Refill(s) levetiracetam 750 mg, Oral, BID, 0 Refill(s) losartan (losartan 25 mg Tab) 25 mg, 1 tab(s), Oral, Daily, 0 Refill(s) omeprazole (Prilosec) 40 mg, Oral, Daily, 0 Refill(s) venlafaxine 150 mg, Oral, Daily, 0 Refill(s) warfarin (warfarin 4 mg Tab) 2 mg 0.5 tab(s) Oral MonTuWeThFrSu, Start: 11/03/2024, 0 Refill(s) warfarin (warfarin 4 mg Tab) 4 mg 1 tab(s) Oral Wednesday, Start: 11/03/2024, 0 Refill(s) zonisamide (Zonegran) 300 mg, Oral, Once a day (at bedtime), 0 Refill(s) zayra po ambulated w therapy urinated pain controlled for dc home today d/w rn Physical Examination Vital Signs (last 24 hrs) Last Charted Temp Axillary 36.4 DegC (NOV 03) Heart Rate Monitored L 58 bpm (NOV 03:) SBP 113 mmHg (NOV 03) DBP 68 mmHg (NOV 03)[facility] HospitalComment on above:Result Comment: Electronically Signed By: Ap PAUL, Shashi Rae.mukesh\Date and Time Signed: 11/03/24 18:13 [id number] Hospital Discharge instructions Patient Education 11/03/2024 14:55:59 [facility] Lumbar Laminectomy, Care After(CUSTOM) Lumbar Laminectomy Care After You have had a laminectomy (entire lamina removed) as a treatment for your back problem. This procedure involves removal of bone to relieve pressure on nerve roots. The time spent in surgery depends on the findings found in surgery and what is necessary to correct the problems. HOME CARE INSTRUCTIONS Check the cut (incision ) made by the surgeon twice a day for signs of infection. Some signs may include a foul smelling, greenish or yellowish discharge from the wound, increased pain, or increased redness over the operative (incision) site. There may also be an opening of the incision, flu- like symptoms, or a temperature above 101.5 F (38.6 C). Change your bandages in about 24 to 36 hours following surgery, or as directed. You may shower once the bandage is removed, or as directed. Avoid bathtubs, swimming pools, and hottubs for three weeks or until your incision has healed completely. If you have stitches or wm,they may be removed 2 to 3 weeks after surgery, or as directed by your doctor. Follow your doctor's instructions as to safe activities, exercises, and physical therapy. Weight reduction may be helpful if you are overweight. Daily exercise is helpful to prevent the return of problems. Walking is permitted. You may use a treadmill without an incline. Cut down on activities and exercise if you have discomfort. You may alsogo up and down stairs as much as you can tolerate. DO NOT lift anything heavier than 10 to 15 lbs. Avoid bending or twisting at the waist. Always bendyour knees. Maintain strength and range of motion as instructed. Do not drive for 2 to 3 weeks, or as directed by your doctor. You may be a passenger for 20 to 30 minute trips. Laying back in the passenger seat may be more comfortable for you. Limit your sitting to 20 to 30 minute intervals. You should lie down or walk in between sitting periods. There are no limitations for sitting in a recliner chair. Only take cpfa-rjd-dunsfkj or prescription medicines for pain, discomfort, or fever as directed by your caregiver. SEEK MEDICAL CARE IF: There is increased bleeding (more than a small spot) from the wound. You notice redness, swelling, or increasing pain in the wound. Pus is coming from wound. An unexplained oral temperature above 102 F (38.9 C) develops. You notice a foul smell coming from the wound or dressing. You have increasing pain in your wound. SEEK IMMEDIATE MEDICAL CARE IF: You develop a rash. You have difficulty breathing. You have any allergic problems. Document Released: 10/05/2005 Document Revised: 01/23/2013 Document Reviewed: 11/01/2006 [facility] Patient Information 2013 [employer] [facility]. Follow Up Care 10/19/2024 10:52:05 With:BRODERICK HOWARD Address: [address] [place] [address]- Business (1) When: Unknown Comments:No need to see PCP at this time unless symptoms worsen. With:Shasih De Souza Address: [address], [address] [place] [phone] Business (1) When: Unknown Comments:f/u3wks ok shower and remove dressing [id number] no lift>5lbs keep incis dry clean. restart coumadin 3 days after surgery. 11-05-24Wednesday. [facility] 12-20-2024 NotePatient Education - Text Lumbar Laminectomy Care After You have had a laminectomy (entire lamina removed) as a treatment for your back problem. This procedure involves removal of bone to relieve pressure on nerve roots. The time spent in surgery depends on the findings found in surgery and what is necessary to correct the problems. HOME CARE INSTRUCTIONS ? Check the cut (incision ) made by the surgeon twice a day for signs of infection. Some signs may include a foul smelling, greenish or yellowish discharge from the wound, increased pain, or increased redness over the operative (incision) site. There may also be an opening of the incision, flu-likesymptoms, or a temperature above 101.5? F (38.6? C). ? Change your bandages in about 24 to 36 hours following surgery, or as directed. ? You may shower once the bandage is removed, or as directed. Avoid bathtubs, swimming pools, and hot tubs for three weeks or until your incision has healed completely. If you have stitches or wm, they may be removed 2 to 3 weeks after surgery, or as directed by your doctor. ? Follow your doctor's instructions as to safe activities, exercises, and physical therapy. ? Weight reduction may be helpful if you are overweight. ? Daily exercise is helpful to prevent the return of problems. Walking is permitted. You may use a treadmill without an incline. Cut down on activities and exercise if you have discomfort. You may also go up and down stairs as much as you can tolerate. ? DO NOT lift anything heavier than 10 to 15 lbs. Avoid bending or twisting at the waist. Always bend your knees. ? Maintain strength and range of motion as instructed. ? Do not drive for 2 to 3 weeks, or as directed by your doctor. You may be a passenger for 20 to 30minute trips. Laying back in the passenger seat may be more comfortable for you. ? Limit your sitting to 20 to 30 minute intervals. You should lie down or walk in between sitting periods. There are no limitations for sitting in a recliner chair. ? Only take vtbu-ioh-wawcwjg or prescription medicines for pain, discomfort, or fever as directed by your caregiver. SEEK MEDICAL CARE IF: ? There is increased bleeding (more than a small spot) from the wound. ? You notice redness, swelling, or increasing pain in the wound. ? Pus is coming from wound. ? An unexplained oral temperature above 102? F (38.9? C) develops. ? You notice a foul smell coming from the wound or dressing. ? You have increasing pain in your wound. SEEK IMMEDIATE MEDICAL CARE IF: ? You develop a rash. ? You have difficulty breathing. ? You have any allergic problems. Document Released: 10/05/2005 Document Revised: 01/23/2013 Document Reviewed: 11/01/2006 [employer]? Patient Information ?2012 [employer] 11-03-2024 Evaluation + Plan noteExtracted from: Title:Discharge Summary Author:Shashi De Souza MD Date:11/03/24 Discharge Information Discharge Summary Information: Admit Date/Time: 11/02/24 10:13Discharge Date/Time: 11/03/24 18:13 Admitting Physician: Shashi De Souza MD Referring Physician for Admission: Shashi De Souza MD Consulting Physicians: Dar NUNEZ MD Admitting Diagnoses: Discharge Diagnoses: Essential (primary) hypertension Presence of cardiac pacemaker Personal history of other venous thrombosis and embolism MCC (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 of anticoagulants Epilepsy, unspecified, not intractable, without status epilepticus Unspecified asthma, uncomplicated Gastro-esophageal reflux disease without esophagitis Chronic kidney disease, stage 3 unspecified Prescription and Home Meds: acetaminophen (Tylenol) 500 mg, Oral, q6hr, PRN: as needed for pain, 0 Refill(s) acetaminophen-oxycodone (Percocet 5 mg-325 mg oral tablet) 1 tab(s), Oral, TID, for 7 day(s), PRN: Pain 4-7, 21 tab(s), 0 Refill(s) amitriptyline (amitriptyline 50 mg Tab) 50 mg, 1 tab(s), Oral, Once a day (at bedtime), 0 Refill(s) amlodipine 5 mg, Oral, Daily, 0 Refill(s) carvedilol 12.5 mg, Oral, BID, 0 Refill(s) enoxaparin (enoxaparin 100 mg/mL SubQ Gloria) 100 mg, SubCutaneous, q12hr, Bridging with Warfarin for surgery, 0 Refill(s) ergocalciferol (Vitamin D) 50,000 International_Unit, Oral, qWeek, 0 Refill(s) ferrous sulfate 325 mg, Oral, Every other day, 0 Refill(s) levetiracetam 750 mg, Oral, BID, 0 Refill(s) losartan (losartan 25 mg Tab) 25 mg, 1 tab(s), Oral, Daily, 0 Refill(s) omeprazole (Prilosec) 40 mg, Oral, Daily, 0 Refill(s) venlafaxine 150 mg, Oral, Daily, 0 Refill(s) warfarin (warfarin 4 mg Tab) 2 mg 0.5 tab(s) Oral MonTuWeThFrSu, Start: 11/03/2024, 0 Refill(s) warfarin (warfarin 4 mg Tab) 4 mg 1 tab(s) Oral Wednesday, Start: 11/03/2024, 0 Refill(s) zonisamide (Zonegran) 300 mg, Oral, Once a day (at bedtime), 0 Refill(s) zayra po ambulated w therapy urinated pain controlled for dc home today d/w rn Extracted from: Title:APSO Note Author:Santosh LUCERO, Drea Baltazar Date:11/03/24 1. Lumbar stenosis (M48.061: Spinal stenosis, lumbar region without neurogenic claudication) L4-[address] De Souza 11/02/24 Post operative orders as per surgeon: PT/OT have seen and patient is doing well, OOB in chair Pain Control: Acetaminophen as needed, oxycodone as needed, IV Dilaudid Bowel regimen: Colace twice daily, Dulcolax as needed DVT prophylaxis: Enoxaparin Perioperative IV abx: Cefazolin Education provided on incentive spirometer use, postoperative plan of care, and signs/symptoms for which to notify nursing/provider. 2. Hypertension (I10: Essential (primary) hypertension) Continue amlodipine 5 mg daily, Coreg 12.5 mg twice daily, losartan 25 mg daily 3. Presence of cardiac pacemaker (Z95.0: Presence of cardiac pacemaker) Device was interrogated postoperatively 4. History of DVT of lower extremity (Z86.718: Personal history of other venous thrombosis and embolism) History of DVT post Whipple procedure in 2010 Patient is on warfarin for life, has right lower extremity IVC filter While AC is on hold for neuro spine surgery, patient has xocfl-pkr-gawk compression hose and SCDs Enoxaparin 40 mg daily per surgeon for now 5. Anticoagulated (Z79.01: slat twister (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 of anticoagulants) Warfarin prior to admit, had been bridging with Lovenox- Last dose evening 11/01 Resume Lovenox bridge as per surgeon's direction 6. Epilepsy (G40.909: Epilepsy, unspecified, not intractable, without status epilepticus) Levetiracetam per home resumed Seizure precautions 7. Asthma (J45.909: Unspecified asthma, uncomplicated) PRN Albuterol 8. Chronic GERD (K21.9: Gastro-esophageal reflux disease without esophagitis) PPI 9. Chronic renal insufficiency, stage III (moderate) (N18.30: Chronic kidney disease, stage 3 unspecified) Cr 1.6, reviewing outside records prior Cr 1.7, 1.8 Orders: albuterol, 2.5 mg, 3 mL, Soln-Inh, Inhalation, q2hr PRN Wheezing, Routine, Start date 11/02/24 18:30:00 EST hydrALAZINE, 10 mg = 0.5 mL, Injection, IV Push, q6hr PRN Other (see comment), Routine, Start date 11/02/24 19:01:00 EST, 11/02/24 19:01:00 EST Patient is medically cleared for discharge, final discharge dispo as per neurosurgeon/attending. Therapeutic Lovenox Bridge/Coumadin restart as per surgeon. Extracted from: Title:Consult Note Author:Júnior Frost CNP Date:11/02/24 1. Lumbar stenosis (M48.061: Spinal stenosis, lumbar region without neurogenic claudication) L4-[address] De Souza 11/02/24 Post operative orders as per surgeon: Bedrest orders with PT in am per surgeon Pain Control: Acetaminophen as needed, oxycodone as needed, IV Dilaudid Bowel regimen: Colace twice daily, Dulcolax as needed DVT prophylaxis: Enoxaparin Perioperative IV abx: Cefazolin Education provided on incentive spirometer use, postoperative plan of care, and signs/symptoms for which to notify nursing/provider. 2. Hypertension (I10: Essential (primary) hypertension) Resume amlodipine 5 mg daily, Coreg 12.5 mg twice daily, losartan 25 mg daily 3. Presence of cardiac pacemaker (Z95.0: Presence of cardiac pacemaker) Device was interrogated postoperatively 4. History of DVT of lower extremity (Z86.718: Personal history of other venous thrombosis and embolism) History of DVT post Whipple procedure in 2010 Patient is on warfarin for life, has right lower extremity IVC filter While AC is on hold for neuro spine surgery, patient has gmulw-kfy-jkbm compression hose and SCDs Enoxaparin 40 mg daily per surgeon for now 5. Anticoagulated (Z79.01: MCC (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 of anticoagulants) Warfarin prior to admit, had been bridging with Lovenox- Last dose evening 11/01 Resume Lovenox bridge as per surgeon's direction 6. Epilepsy (G40.909: Epilepsy, unspecified, not intractable, without status epilepticus) Levetiracetam per home resumed Seizure precautions 7. Asthma (J45.909: Unspecified asthma, uncomplicated) PRN Albuterol 8. Chronic GERD (K21.9: Gastro-esophageal reflux disease without esophagitis) PPI Thank you for this consultation, hospitalist service available for any acute needs/questions. Extracted from: Title:ANES Pre-operative Note 2022 Author:Jaun Mccollum Date:11/02/24 Plan [place] [employer] (ASA) physical status classification: Class III. Anesthetic Preoperative Plan: Anesthesia General. Diagnostic Tests Pending * Calcium Level Ionized 11/03/24 [facility] [id number] NoteProgress Note-Physician Basic Information 74-year-old female with history of bradycardia status postcardiac pacemaker, anticoagulated for remote DVT of lower extremity post Whipple procedure for pancreatic cancer in 2010, epilepsy, asthma, GERD, chronic kidney disease status post lumbar laminectomy Assessment/Plan 1. Lumbar stenosis (M48.061: Spinal stenosis, lumbar region without neurogenic claudication) L4-[address] De Souza 11/02/24 Post operative orders as per surgeon: PT/OT have seen and patient is doing well, OOB in chair Pain Control: Acetaminophen as needed, oxycodone as needed, IV Dilaudid Bowel regimen: Colace twice daily, Dulcolax as needed DVT prophylaxis: Enoxaparin Perioperative IV abx: Cefazolin Education provided on incentive spirometer use, postoperative plan of care, and signs/symptoms for which to notify nursing/provider. 2. Hypertension (I10: Essential (primary) hypertension) Continue amlodipine 5 mg daily, Coreg 12.5 mg twice daily, losartan 25 mg daily 3. Presence of cardiac pacemaker (Z95.0: Presence of cardiac pacemaker) Device was interrogated postoperatively 4. History of DVT of lower extremity (Z86.718: Personal history of other venous thrombosis and embolism) History of DVT post Whipple procedure in 2010 Patient is on warfarin for life, has right lower extremity IVC filter While AC is on hold for neuro spine surgery, patient has rxyof-zal-zwmw compression hose and SCDs Enoxaparin 40 mg daily per surgeon for now 5. Anticoagulated (Z79.01: MCC (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 of anticoagulants) Warfarin prior to admit, had been bridging with Lovenox- Last dose evening 11/01 Resume Lovenox bridge as per surgeon's direction 6. Epilepsy (G40.909: Epilepsy, unspecified, not intractable, without status epilepticus) Levetiracetam per home resumed Seizure precautions 7. Asthma (J45.909: Unspecified asthma, uncomplicated) PRN Albuterol 8. Chronic GERD (K21.9: Gastro-esophageal reflux disease without esophagitis) PPI 9. Chronic renal insufficiency, stage III (moderate) (N18.30: Chronic kidney disease, stage 3 unspecified) Cr 1.6, reviewing outside records prior Cr 1.7, 1.8 Orders: albuterol, 2.5 mg, 3 mL, Soln-Inh, Inhalation, q2hr PRN Wheezing, Routine, Start date 11/02/24 18:30:00 EST hydrALAZINE, 10 mg = 0.5 mL, Injection, IV Push, q6hr PRN Other (see comment), Routine, Start date 11/02/24 19:01:00 EST, 11/02/24 19:01:00 EST Patient is medically cleared for discharge, final discharge dispo as per neurosurgeon/attending. Therapeutic Lovenox Bridge/Coumadin restart as per surgeon. Subjective Did well overnight. OOB in chair. She denies pain, weakness, numb/tingling to lower extremities. Eating/drinking well. Passing flatus, voiding No N/V Review of Systems Additional ROS info: Except as noted in the above Review of Systems and in the History of Present Illness all other systems have been reviewed and are negative or noncontributory Objective Vitals & Measurements T: 36.4 ???C(Axillary) TMIN: 36.3 ???C(Axillary) TMAX: 36.6 ???C(Axillary) HR: 60(Monitored) RR: 16BP: 141/70 SpO2: 96% HT: 157.48 cm WT: 88.9 kg Intake & Output This visit (24 hour periods starting at 07:00 EST) 11/03/24 * 11/02/24 11/01/24 Total Summary Intake mL -- 1,742.5 -- Output mL 225 1,000 -- Fluid Balance -225 742.5 -- Intake (13) Lactated Ringers Injection mL -- 800 -- Oral Intake mL -- 710 -- Sodium Chloride 0.9% intravenous solution 1,000 mL mL -- 50 -- Sodium Chloride 0.9%, cefazolin mL -- 50 -- acetaminophen mL -- 100 -- fentanyl mL -- 1 -- hydromorphone mL -- 0.5 -- lidocaine mL -- 3 -- ondansetron mL -- 2 -- phenylephrine mL -- 3 -- propofol mL -- 16 -- rocuronium mL -- 5 -- sugammadex mL -- 2 -- Total -- 1,742.5 -- Output (3) EBL Surgery mL -- 25 -- Urine Output Initial mL -- 975 -- Urine Voided mL 225 -- -- Total 225 1,000 -- Counts (1) Stool Count -- 1 -- * This column has not completed the indicated time period. Physical Exam General: Elderly female OOB in chair Alert, calm, NAD Eyes: PERRLA. Conjunctivae and sclerae normal, and intact EOM HEENT: Mucous membrane pink, moist, Normal tongue. Neck: supple, no JVD, no bruit Lungs: on RA, lungs CTA Cardio: Regular S1, S2. Good perfusion Pulses: Normal capillary refill Abdomen: Soft, non-distended, non-tender, + BS x4 Musculoskeletal: No deformity or scoliosis noted. Normal ROM for age. Integumentary: Warm, dry Extremity: No clubbing, no edema Neurologic: Alert, oriented x 4 follows commands, no obvious focal deficits Mental status: Pleasant & cooperative, appropriate Lab Results WBC: 5.4 E9/L (11/03/24 05:56:00) RBC: 3.7 E12/L Low (11/03/24 05:56:00) HGB: 11.9 gm/dL Low (11/03/24 05:56:00) Hct: 35.4 % (11/03/24 05:56:00) MCV (more content not included)...[facility]: Result Comment: Electronically Signed By: Katarzyna Frost CNP\.br\Date and Time Signed: 11/03/24 11:08 EST\.br\Electronically Co-Signed By: Dar NUNEZ MD\.br\Date and Time Co-Signed: 11/03/24 12:02 [id number] Note Interdisciplinary Note - PT PT Evaluation done this date. Pt. with on AM-PAC this date. She is safe and independent with all functional activities at this time. No further PT needs.[facility]12-[facility] NoteConsultation Note Reason for Consultation Medical Management Post Op History of Present Illness Cassi Rodrigez is a 74-year-old female with past medical story positive for sick sinus syndromepost cardiac pacemaker, epilepsy with prior brain surgery, asthma, GERD, remote history of pancreatic cancer post Whipple procedure complicated by DVT to lower extremity postoperatively. She has IVC filter and is on warfarin. Patient underwent L4-[address] De Souza 11/02/24. Hospitalist team is consulted for postsurgical management. Patient is seen in her hospital room. She is in no distress. She denies any pain. She denies any shortness of breath. She denies any numbness tingling to lower extremities. She denies any nausea or vomiting. She has her dinner and will be eating soon. She has no concerns. has questions about when to resume Lovenox/warfarin, per patient the surgeon told her she must hold x 5 days postoperatively. Review of Systems Constitutional: Negative Eye: Negative. Ear/Nose/Mouth/Throat: Negative. Respiratory: Negative Cardiovascular: Negative. Gastrointestinal: Last BM this morning Genitourinary: Negative. Hematology/Lymphatics: Negative. Endocrine: Negative. Immunologic: Negative Musculoskeletal: Bedrest. Integumentary: Negative. Neurologic: Alert and oriented X4. Psychiatric: Negative. Additional ROS info: Except as noted in the above Review of Systems and in the History of Present Illness all other systems have been reviewed and are negative or noncontributory Physical Exam Vitals & Measurements T: 36.3 ???C(Axillary) TMIN: 36.3 ???C(Axillary) TMAX: 36.6 ???C(Axillary) HR: 60(Monitored) RR: 18BP: 144/55 SpO2: 98% General: Pleasant elderly female alert, calm, NAD Head: Normocephalic/atraumatic Eyes: PERRLA. Conjunctivae and sclerae normal, and intact EOM HEENT: Mucous membrane pink, moist, Normal midline tongue. Neck: Trachea midline, neck supple, no JVD, no bruit Chest: No chest wall deformity, no chest wall tenderness Lungs: On room air, lungs are clear Cardio: Regular S1, S2, no murmur, no edema Pulses: Normal capillary refill Abdomen: Soft, non-distended, non-tender, + BS x4 Musculoskeletal: No deformity or scoliosis noted. Integumentary: Warm, dry, intact Extremity: No clubbing, no edema, lower extremities neurovascularly intact Neurologic: Alert, oriented x 4 follows commands, no obvious focal deficits Mental status: Pleasant & cooperative Assessment/Plan 1. Lumbar stenosis (M48.061: Spinal stenosis, lumbar region without neurogenic claudication) L4-[address] De Souza 11/02/24 Post operative orders as per surgeon: Bedrest orders with PT in am per surgeon Pain Control: Acetaminophen as needed, oxycodone as needed, IV Dilaudid Bowel regimen: Colace twice daily, Dulcolax as needed DVT prophylaxis: Enoxaparin Perioperative IV abx: Cefazolin Education provided on incentive spirometer use, postoperative plan of care, and signs/symptoms for which to notify nursing/provider. 2. Hypertension (I10: Essential (primary) hypertension) Resume amlodipine 5 mg daily, Coreg 12.5 mg twice daily, losartan 25 mg daily 3. Presence of cardiac pacemaker (Z95.0: Presence of cardiac pacemaker) Device was interrogated postoperatively 4. History of DVT of lower extremity (Z86.718: Personal history of other venous thrombosis and embolism) History of DVT post Whipple procedure in 2010 Patient is on warfarin for life, has right lower extremity IVC filter While AC is on hold for neuro spine surgery, patient has [id number] compression hose and SCDs Enoxaparin 40 mg daily per surgeon for now 5. Anticoagulated (Z79.01: slat twister (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 of anticoagulants) Warfarin prior to admit, had been bridging with Lovenox- Last dose evening 11/01 Resume Lovenox bridge as per surgeon's direction 6. Epilepsy (G40.909: Epilepsy, unspecified, not intractable, without status epilepticus) Levetiracetam per home resumed Seizure precautions 7. Asthma (J45.909: Unspecified asthma, uncomplicated) PRN Albuterol 8. Chronic GERD (K21.9: Gastro-esophageal reflux disease without esophagitis) PPI Thank you for this consultation, hospitalist service available for any acute needs/questions. Problem List/Past Medical History Ongoing No qualifying data Historical No qualifying data Procedure/Surgical History Appendectomy; (11/07/1960), Arthroscopy of shoulder, Cardiac pacemaker, device, Cataract surgery, Cholecystectomy, Colonoscopy, EGD - esophagogastroduodenoscopy, Hammer toe operation, History of cervical laminectomy, History of lumbar laminectomy, History of Whipple procedure, Implantable venous catheter, device, Lobectomy of brain. Medications Inpatient acetaminophen 325 mg Tab, 650 mg= 2 tab(s), Oral, q4hr, PRN amitriptyline 50 mg Tab, 50 mg= 1 tab(s), Oral, Once a day (at bedtime) amLODIPine 5 mg Tab, 5 mg= 1 tab(s), Oral, Daily carvedil (more content not included)...[facility]Result Comment: Electronically Signed By: Katarzyna Frost CNP\.br\Date and Time Signed: 11/02/24 18:33 EST\.br\Electronically Co-Signed By: ENRIQUE PAUL, Dar\.br\Date and Time Co-Signed: 11/02/24 18:54 [id number] NoteProgress Note-Nurse 1615- Pacemaker to right chest interrogated in PACU at this time with [employer] device. Device stated it transmitted properly.[facility] 11-02-2024 NoteProgress Note-Physician Patient: CASIS RODRIGEZ Age: 74 years Sex: Female : 1950 Associated Diagnoses: None Author: Jaun Guzman MD Preoperative Information Anesthesia Preop Info: Time patient last ate or drank 11/02/2024 00:00:00. Anesthesia history: Patient history: None. Family history+: None. Informed consent: Signed by patient. Re-evaluation prior to induction: Initial evaluation reviewed: No significant change. Review of Systems Eye Ear/Nose/Mouth/Throat Respiratory: No shortness of breath, No cough. Cardiovascular: No chest pain, No syncope. Gastrointestinal: No heartburn. Musculoskeletal Neurologic Health Status Allergies: Allergic Reactions (Selected) Severity Not Documented DexAMETHasone- Rash. Lyrica- Rash., Allergies (2) Active Severity Reaction Lyrica Rash dexAMETHasone Rash Current medications: (Selected) Inpatient Medications Ordered HYDROmorphone 1 mg/mL injectable solution: 0.4 mg = 0.4 mL, Injection, IV Push, q4min PRN Pain for 5 dose(s), Stop date Limited # of times, Routine, Start date 11/02/24 11:50:00 EST, 11/02/24 11:50:00 EST Lactated Ringers IV Gloria 1000 mL 1,000 mL: 1,000 mL, IV, 100 mL/hr, Routine, Start date 11/02/24 11:50:00 EST, 10 hour(s), Total volume (mL): 1,000, 87.7 kg, 1.96, m2 Sodium Chloride 0.9% IV Gloria 1000 mL 1,000 mL: 1,000 mL, IV, 150 mL/hr, Routine, Start date 11/02/2410:30:00 EST, 6.7 hour(s), Total volume (mL): 1,000, 87.7 kg, 1.96, m2 cefazolin additive + Sodium Chloride 0.9% intravenous solution 50 mL: 2 gram = 1 EA, Powder-Inj, IVPiggyback, PREOP, Routine, Start date 11/02/24 10:30:00 EST, 100 mL/hr, Infuse over 30 minute(s) promethazine additive 12.5 mg + Sodium Chloride 0.9% IV Gloria 50 mL (INT) 50 mL: Injection, IV Piggyback, Once PRN Nausea/Vomiting, Routine, Start date 11/02/24 11:50:00 EST, 151.5 mL/hr, Infuse over 20 minute(s) Documented Medications Documented Prilosec: 40 mg, Oral, Daily, Refills(s) 0, Control of stomach acid Tylenol: 500 mg, Oral, q6hr, PRN as needed for pain, Refills(s) 0 Vitamin D: 50,000 International_Unit, Oral, qWeek, Refills(s) 0, Prophylaxis Zonegran: 300 mg, Oral, Once a day (at bedtime), Refills(s) 0, Seizure amitriptyline 50 mg Tab: 50 mg = 1 tab(s), Oral, Once a day (at bedtime), Refills(s) 0, Depression amlodipine: 5 mg, Oral, Daily, Refills(s) 0, High blood pressure carvedilol: 12.5 mg, Oral, BID, Refills(s) 0, High blood pressure enoxaparin 100 mg/mL SubQ Gloria: 100 mg, SubCutaneous, q12hr, Bridging with Warfarin for surgery, Refills(s) 0, Blood Thinner ferrous sulfate: 325 mg, Oral, Every other day, Refills(s) 0, Anemia levetiracetam: 750 mg, Oral, BID, Refills(s) 0, Seizure losartan 25 mg Tab: 25 mg = 1 tab(s), Oral, Daily, Refills(s) 0, High blood pressure venlafaxine: 150 mg, Oral, Daily, Refills(s) 0, Depression warfarin: 4 mg, Oral, Daily, takes on saturdays, Refills(s) 0, Blood Thinner, Home Medications (13) Active amitriptyline 50 mg Tab 50 mg = 1 tab(s), Oral, Once a day (at bedtime) amlodipine 5 mg, Oral, Daily carvedilol 12.5 mg, Oral, BID enoxaparin 100 mg/mL SubQ Gloria 100 mg, SubCutaneous, q12hr ferrous sulfate 325 mg, Oral, Every other day levetiracetam 750 mg, Oral, BID losartan 25 mg Tab 25 mg = 1 tab(s), Oral, Daily Prilosec 40 mg, Oral, Daily Tylenol 500 mg, PRN, Oral, q6hr venlafaxine 150 mg, Oral, Daily Vitamin D 50,000 International_Unit, Oral, qWeek warfarin 4 mg, Oral, Daily Zonegran 300 mg, Oral, Once a day (at bedtime) , Medications (5) Active Scheduled: (1) ceFAZolin + Sodium Chloride 0.9% Minibag 50 mL 2 gram 1 EA, IV Piggyback, PREOP Continuous: (2) Lactated Ringers 1,000 mL 1,000 mL, IV, 100 mL/hr Sodium Chloride 0.9% 1,000 mL 1,000 mL, IV, 150 mL/hr PRN: (2) HYDROmorphone 1 mg/mL SOLN [F] 0.4 mg 0.4 mL, IV Push, q4min promethazine 12.5 mg + Sodium Chloride 0.9% 50 mL 12.5 mg 0.5 mL, IV Piggyback, Once Problem list: All Problems Acute asthma / SNOMED CT 6109186949 / Confirmed Bradycardia / SNOMED CT 21544556 / Confirmed Cardiac pacemaker / SNOMED CT 1656617866 / Confirmed Epilepsy / SNOMED CT 075125360 / Confirmed High blood pressure / SNOMED CT 0239320251 / Confirmed History of DVT of lower extremity / SNOMED CT 5168436136 / Confirmed Migraines / SNOMED CT 24794032 / Confirmed Obstructive sleep apnea / SNOMED CT 208870041 / Confirmed Pancreatic cancer / SNOMED CT 797550440 / Confirmed Presence of IVC filter / SNOMED CT 7686330937 / Confirmed, Active Problems (10) Acute asthma Bradycardia Cardiac pacemaker Epilepsy High blood pressure History of DVT of lower extremity Migraines Obstructive sleep apnea Pancreatic cancer Presence of IVC filter , anesthesia summary- obesity, HTN, godfrey/PM, SHELL, mild asthma, remote treatment for pancreatic cancer, controlled siezures, RI, controlld GERD, hx DVT s/p IVCF on chronic anticoagulation, c-spine dz Histori (more content not included)...[facility]:Result Comment: Electronically Signed By: Thomas PAUL, Jaun Reese\.br\Date and Time Signed: 11/02/24 13:45 [id number] Evaluation note* Diagnosis Onset Date Resolution Status Admit Date Chronic kidney disease acute 2023 8:49am Gastroesophageal reflux disease with esophagitis without hemorrhage acute October 8:49am History of DVT (deep vein thrombosis) acute October 27, 2 024 8:49am Hypertension acute October 8:49am Lumbar stenosis with neurogenic claudication acute October 27, 2024 8:49am Major depression acute October 27, 2024 8:49am Preop exam for internal medicine noneactive October 27, 2 024 8:49am Adverse effect of anticoagulant antagonists, vitamin k and other coagulants acute J anuary 2024 1:36pm Bruising at injection site acute November 17, 2024 1:36pm Cellulitis acute November 17, 2 025 1:36pm Adverse effect of anticoagulant antagonists, vitamin k and other coagulants acute J anuary 2024 10:35am Cellulitis acute November 24, 2024 10:35am Abscess of abdominal wall deleted November 24, 2024 10:35am Adverse effect of anticoagulant antagonists, vitamin k and other coagulants acute J anuary 2024 10:54am Cellulitis acute November 28, 2024 10:54am Abdominal hematoma inactive 2024 10:54am Adverse effect of anticoagulant antagonists, vitamin k and other coagulants acute J anuary 2024 9:51am Cellulitis acute December 08, 2024 9:51am [facility] Work Phone: [phone]) 676-691810-22-2024 NoteHNO ID: [id number] Author: RANDA REILLY MD Service: ? Author Type: Physician Type: Procedures Filed: 09/05/2024 13:54 Note Text: BOTOX PROCEDURE NOTE UNIVERSAL PROTOCOL / SAFETY CHECKLIST Procedure to be performed: Randa Reilly MD Sign in Communication: Completed Time Out: Team Confirms the Correct Patient, Correct Procedure, Correct Site and Site Marking, Correct Position (if applicable), Prep and Dry Time (if applicable). 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 Author Type: Physician Type: Progress Notes Filed: 09/05/2024 13:54 Note Text: PROGRESS NOTE- HEADACHE MEDICINE SERVICE DATE: September 05, 2024 Location: [facility] Participants: patient, and provider HPI: Here for follow up and Botox therapy. This is her second. After the first one she says she had less severe migraines although still daily. No side effects. Her neck pain is also daily. S/p [...] days a month Frequency: daily for 3-4 decades. exacerbations 15 days a month. Duration of attacks: constant Prior Treatments for migraine: Cymbalta Propranolol ( for high BP, stopped due to low HR) Amitriptyline Topamax Fiorecet Tizanidine Amlodipine Keppra Zonisamide Zoloft Depakote Verapamil Benazepril Botox injections. Helped(Still daily headaches but less severe episodes). But insurance stopped paying for it. Imagin10/15/2016 CT head: no acute changes 2014 [...] Reactions Lyrica [Pregabalin] Rash Dexamethasone Rash BP 133/78 Pulse 84 Ht 157.5 cm (5' 2 ) Wt 89.1 kg (196 lb 6.9 oz) BMI 35.93 kg/m? ASSESSMENT: - 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 aura - chronic cervicalgia - CKD RECOMMENDATIONS: 1. Preventive therapy: -continue Botox. See attached procedure note 2.Referral to spine medicine 3.Referral to sleep medicine Randa Reilly MD [facility]10-22-2024 History of Present illness Narrative* Randa Reilly MD - 09/05/2024 1:49 PM EDT PROGRESS NOTE- HEADACHE MEDICINE SERVICE DATE: September 05, 2024 Location: [facility] Participants: patient, and provider HPI: Here for follow up and Botox therapy. This is her second. After the first one she says she hadless severe migraines although still daily. No side effects. Her neck pain is also daily. S/p [...] days a month Frequency: daily for 3-4 decades. exacerbations 15 days a month. Duration of attacks: constant Prior Treatments for migraine: Cymbalta Propranolol ( for high BP, stopped due to low HR) Amitriptyline Topamax Fiorecet Tizanidine Amlodipine Keppra Zonisamide Zoloft Depakote Verapamil Benazepril Botox injections. Helped(Still daily headaches but less severe episodes). But insurance stopped paying for it. Imagin10/15/2016 CT head: no acute changes 2014 [...] Reactions Lyrica [Pregabalin] Rash Dexamethasone Rash BP 133/78 Pulse 84 Ht 157.5 cm (5' 2 ) Wt 89.1 kg (196 lb 6.9 oz) BMI 35.93 kg/m ASSESSMENT: - 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 aura - chronic cervicalgia - CKD RECOMMENDATIONS: 1. Preventive therapy: -continue Botox. See attached procedure note 2.Referral to spine medicine 3.Referral to sleep medicine Randa Reilly MD [facility] [place] documented in this encounterOhiohealth [facility] Hospital10-22-2024 Nurse Note* Davina Brennan RN - 09/05/2024 1:20 PM EDT Patient name and confirmed. Patient states she would like to receive Botox treatment today. 2 vials of Botox A (100 units in each) reconstituted with 2.2 cc of normal saline in each vial. Botox drawn up into four, 1 cc syringes. Each syringe containing 50 units of Botox. Assisted by: Lon Jewell RN Botox, 2 vials: Lot # [id number] Exp 10/2026 Lot # [id number] Exp 10/[address] Reilly to administer and verified order. [facility] Nurse Note* Davina Brennan RN - 09/05/2024 1:20 PM EDT Patient name and confirmed. Patient states she would like to receive Botox treatment today. 2 vials of Botox A (100 units in each) reconstituted with 2.2 cc of normal saline in each vial. Botox drawn up into four, 1 cc syringes. Each syringe containing 50 units of Botox. Assisted by: Lon Jewell RN Botox, 2 vials: Lot # [id number] Exp 10/2026 Lot # [id number] Exp 10/[address] Reilly to administer and verified order. documented in this encounterOhiohealth [facility] Hospital10-17-2024 NoteHNO ID: [id number] Author: KITTY VALENTE MD Service: ? Author Type: Physician Type: Progress Notes Filed: 09/02/2024 00:42 Note Text: [facility] [place] [facility] Department of Cardiovascular Medicine SECTION OF CARDIAC PACING and ELECTROPHYSIOLOGY OUTPATIENT VISIT DATE NASRIN July 23, 2022 August 31, 2024 OUTPATIENT VISIT TYPE ESTABLISHED PRIMARY CARE PHYSICIAN: Broderick Howard MD ([facility]) [address] [place] [address] CHIEF COMPLAINT: Pacemaker management HISTORY OF PRESENT ILLNESS: Ms. Rodrigez is a 74 year old female who presents today for follow-up visit. No specific complaints. Reports she is largely inactive, due to chronic back pain. She underwent surgery for this in the spring, but is planned for another intervention soon. She denies chest pain, shortness of breath, [...] Never Smokeless tobacco: Never Vaping Use Vaping status: Never Used Substance Use Topics Alcohol use: No Drug use: No FAMILY HISTORY Problem Relation Age of Onset other (Liver Ca[other]) Father Breast Cancer Sister No Ocular Disease Other ALLERGIES: ALLERGIES Allergen Reactions Lyrica [Pregabalin] Rash Dexamethasone Rash MEDICATIONS: zonisamide (ZONEGRAN) 100 mg capsule Take 3 [...] Negative for: Weakness, Paralysis, Numbness, Tingling, Tremor, Nervousness, Depressed mood, Memory loss SKIN: Negative for: Rashes, Itching HEMATOLOGICAL/LYMPHATIC: Negative for: Easy bruising , Easy bleeding ENDOCRINE: Negative for: Heat or cold intolerance, Excessive sweating, Frequent urination, Frequent thirst PHYSICAL EXAMINATION: BP 134/72 Pulse 81 Ht 157.5 cm (5' 2 ) Wt 88 kg (194 lb 0.1 oz) BMI 35.48 kg/m? General: Well appearing, in no acute distress. Skin: No clubbing, no cyanosis. Eyes: Extra ocular movements intact Oropharynx: Teeth in good repair. Neck: No jugular venous distention, no carotid bruits, carotids have a normal upstroke, no palpable thyromegaly. Lungs: Clear to auscultation bilaterally, no wheezing [...] cooperative, gait coordinated. CARDIOVASCULAR MEDICINE TESTING: Electrocardiogram Atrial paced rhythm DUAL CHAMBER PACEMAKER REMOTE EVALUATION: PRESENTING EGM: AP/VS BATTERY STATUS: Estimated time remaining to CASSI is 2 years COUNTERS SINCE: 12/08/23 ATRIAL ARRHYTHMIAS: none VENTRICULAR ARRHYTHMIAS: There were no ventricular detections. LEAD MEASUREMENTS: Sensing is appropriate. Review of the lead impedance trends are normal. OTHER DIAGNOSTICS: RA pacing 99.6%. Total V pacing 0.3% I have personally reviewed the Electrocardiogram and Device Check. IMPRESSION: Ms. Rodrigez is a 74 year old female with epilepsy (since '80 - managed w antiepileptic Rx - well (more content not included)...[facility] 08-31-2024 History of Present illness Narrative* Kitty Valente MD - 08/31/2024 10:04 AM EDT Images from the original note were not included. [facility] [place] [facility] Department of Cardiovascular Medicine SECTION OF CARDIAC PACING and ELECTROPHYSIOLOGY OUTPATIENT VISIT DATE NASRIN July 23, 2022 August 31, 2024 OUTPATIENT VISIT TYPE ESTABLISHED PRIMARY CARE PHYSICIAN: Broderick Howard MD ([facility]) [address] [place] [address] CHIEF COMPLAINT: Pacemaker management HISTORY OF PRESENT ILLNESS: Ms. Rodrigez is a 74 year old female who presents today for follow-up visit. No specific complaints. Reports she is largely inactive, due to chronic back pain. She underwent surgery for this in the spring, but is planned for another intervention soon. She denies chest pain, shortness of breath, [...] Never Smokeless tobacco: Never Vaping Use Vaping status: Never Used Substance Use Topics Alcohol use: No Drug use: No FAMILY HISTORY Problem Relation Age of Onset other (Liver Ca[other]) Father Breast Cancer Sister No Ocular Disease Other ALLERGIES: ALLERGIES Allergen Reactions Lyrica [Pregabalin] Rash Dexamethasone Rash MEDICATIONS: zonisamide (ZONEGRAN) 100 mg capsule Take 3 [...] Excessive sweating, Frequent urination, Frequentthirst PHYSICAL EXAMINATION: BP 134/72 Pulse 81 Ht 157.5 cm (5' 2 ) Wt 88 kg (194 lb 0.1 oz) BMI 35.48 kg/m General: Well appearing, in no acute distress. [...] cooperative, gait coordinated. CARDIOVASCULAR MEDICINE TESTING: Electrocardiogram Atrial paced rhythm DUAL CHAMBER PACEMAKER REMOTE EVALUATION: PRESENTING EGM: AP/VS BATTERY STATUS: Estimated time remaining to CASSI is 2 years COUNTERS SINCE: 12/08/23 ATRIAL ARRHYTHMIAS: none VENTRICULAR ARRHYTHMIAS: There were no ventricular detections. LEAD MEASUREMENTS: Sensing is appropriate. Review of the lead impedance trends are normal. OTHER DIAGNOSTICS: RA pacing 99.6%. Total V pacing 0.3% I have personally reviewed the Electrocardiogram and Device Check. IMPRESSION: Ms. Rodrigez is a 74 year old female with epilepsy (since - managed w antiepileptic Rx - well controlled), remote pancreatic cancer (s/p whipple and chemo), symptomatic bradycardia (prior presyncope and limiting decreased exercise tolerance) due to significant sinus node dysfunction -- status post dual-chamber pacemaker (implanted May 2015). She is here for for routine follow-up visit. 1. Symptomatic bradycardia, status post dual-chamber pacemaker. Normal function. Has approximately 2 years of battery life remaining. Will continue to follow with remote monitoring on a quarterly basis, annual in person visits with the device clinic. 2. Hypertension, well-controlled. Echo pending. 3. Follow-up with EP on an annual basis, next visit with [facility] team Kitty Millard MD Section of Cardiac Electrophysiology [facility] Department of Cardiovascular Medicine [facility] [place] [facility] Office Office Pager [phone] August 31, 2024 10:18 AM documented in this encounterOhiohealth [facility] Hospital10-16-2024 Evaluation note* Diagnosis Onset Date Resolution Status Admit Date History of DVT (deep vein thrombosis) acute August 30 3:20pm Hypertension acute August 3:20pm Swelling of right lower extremity acute August 30 3:20pm Anemia of renal disease acute O ctober 2023 9:09am CKD (chronic kidney disease) stage 4, GFR 15-29 ml/min acute Octobe r 2023 9:09am Hypertensive chronic kidney disease with stage 1 through stage 4 chronic ki acute September 07, 2024 9:09am Secondary hyperparathyroidism acute September 07, 2024 9:09am Chronic kidney disease acute 2023 8:49am Gastroesophageal reflux dise ase with esophagitis without hemorrhage acute October 27, 024 8:49am History of DVT (deep vein thrombosis) acute October 27 024 8:49am Hypertension acute October 8:49am Lumbar stenosis with neuroge ravindra claudication acute October 27 024 8:49am Major depression acute October 27, 2024 8:49am Preop exam for internal medicine non eactive October 27, 2024 8:49am Adverse effect of anticoagul ant antagonists, vitamin k and other coagulants acute November 17 1:36pm Bruising at injection site acute November 17, 2024 1:36pm Cellulitis acute November 17 1:36pm Abscess of abdominal wall acute November 24, 2024 10:35am Adverse effect of anticoagul ant antagonists, vitamin k and other coagulants acute November 24 10:35am Cellulitis acute November 24, 2024 10:35am Abdominal hematoma acute 2024 10:54am Adverse effect of anticoagul ant antagonists, vitamin k and other coagulants acute November 28 10:54am Cellulitis acute November 28, 2024 10:54am [facility] Work Phone: [phone]) 531-679310-15-2024 Evaluation note* Diagnosis Onset Date Resolution Status Admit Date Constipation acute August 10:43am GERD (gastroesophageal reflu x disease) acute August 29 10:43am Nausea acute August 29, 2024 10:43am Pancreatic cancer acute August 29, 2024 10:43am History of DVT (deep vein thrombosis) acute August 30 3:20pm Hypertension acute August 3:20pm Swelling of right lower extremity acute August 30 3:20pm Anemia of renal disease acute O ctober 2023 9:09am CKD (chronic kidney disease) stage 4, GFR 15-29 ml/min acute Octobe r 2023 9:09am Hypertensive chronic kidney disease with stage 1 through stage 4 chronic ki acute September 07, 2024 9:09am Secondary hyperparathyroidism acute September 07, 2024 9:09am Chronic kidney disease acute De cem2023 8:49am Gastroesophageal reflux dise ase with esophagitis without hemorrhage acute October 27, 024 8:49am History of DVT (deep vein thrombosis) acute October 27 024 8:49am Hypertension acute October 8:49am Lumbar stenosis with neuroge ravindra claudication acute October 27, 024 8:49am Major depression acute October 27, 2024 8:49am Preop exam for internal medicine non eactive October 27, 2024 8:49am [facility] Work Phone: 1(407) 107-901310-15-2024 Evaluation note* Diagnosis Onset Date Resolution Status Admit Date Constipation acute August 10:43am GERD (gastroesophageal reflu x disease) acute August 29 10:43am Nausea acute August 29, 2024 10:43am Pancreatic cancer acute August 29, 2024 10:43am History of DVT (deep vein thrombosis) acute August 30 3:20pm Hypertension acute August 3:20pm Swelling of right lower extremity acute August 30 3:20pm Anemia of renal disease acute O ctober 2023 9:09am CKD (chronic kidney disease) stage 4, GFR 15-29 ml/min acute Octobe r 2023 9:09am Hypertensive chronic kidney disease with stage 1 through stage 4 chronic ki acute September 07, 2024 9:09am Secondary hyperparathyroidism acute September 07, 2024 9:09am Chronic kidney disease acute 2023 8:49am Gastroesophageal reflux dise ase with esophagitis without hemorrhage acute October 27 8:49am History of DVT (deep vein thrombosis) acute October 27 8:49am Hypertension acute October 8:49am Lumbar stenosis with neuroge ravindra claudication acute October 27 024 8:49am Major depression acute October 27, 2024 8:49am Preop exam for internal medicine non eactive October 27, 2024 8:49am Adverse effect of anticoagul ant antagonists, vitamin k and other coagulants acute November 17 1:36pm Bruising at injection site acute November 17, 2024 1:36pm Cellulitis acute November 17 1:36pm Abscess of abdominal wall acute November 24, 2024 10:35am Adverse effect of anticoagul ant antagonists, vitamin k and other coagulants acute November 24 10:35am Cellulitis acute November 24, 2024 10:35am [facility] Work Phone: 1(822) 418-373008-15-2024 NoteHNO ID: [id number] Author: ALEJANDRO VILLAR MD, PhD Service: ? Author Type: Physician Type: Progress Notes Filed: 07/03/2024 12:56 Note Text: [facility] Patient Name: Cassi Rodrigez Date of : 1950 ESTABLISHED EPILEPSY CLINIC NOTE 06/29/2024 1:00 PM Reason for Visit: Epilepsy Clinical Summary: Ms. Rodrigez is a 74 year old female seen in [facility]. Classification Summary HISTORY OF [...] and s/p lumbar laminectomy in 07/2023. 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 - levET (more content not included)...[id number] History of Present illness Narrative* Alejandro Villar MD, PhD - 06/29/2024 2:41 PM EDT [facility] Patient Name: Cassi Rodrigez Date of : 1950 ESTABLISHED EPILEPSY CLINIC NOTE 06/29/2024 1:00 PM Reason for Visit: Epilepsy Clinical Summary: Ms. Rodrigez is a 74 year old female seen in [facility]. Classification Summary HISTORY OF [...] the only AEDs patient has been on withexception of Lyrica (for pain). She continues to have these though last was several years ago. Onlyhas ever had 1 GTC in 2004 while in bed out of sleep; no clear triggers, unprovoked. Interval Seizure History 74 year old female with past medical history of depression, hypertension, SSS s/p PPM, pancreatic cancer, migraines, SHELL and medically intractable focal epilepsy, s/p right temporal lobectomy 08/16/2015 (pathology: MUSHTAQ / FCD) and s/p lumbar laminectomy in 07/2023. At [facility] in Dec 2023, ZNS was increased to 300mg qHS. No seizures since. Continues on Keppra 750mg BID, no side effects. Endorses she will be seeing a kidney specialist soon, BMP from April shows elevated creat (1.60) checo GFR of 32. 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 Developmental Delay Unanswered Family history [...] - 1.02 mg/dL 1.60 High TBH EGFR-AF NAURUAN >=60 38 Low TBH EGFR-NON AF NAURUAN >=60 32 Low BUN CREATININE RATIO 15.0 [...] Ocular Disease Other SOCIAL HISTORY: -Lives in [place], [place] Review of Systems all other review of systems are negative VITAL SIGNS: BP 133/72 Pulse 85 Ht 157.5 cm (5' 2 ) Wt 85.4 kg (188 lb 4.4 oz) BMI 34.44 kg/m General Examination: General: Awake, alert, interactive, no acute distress, good nutritional status, normal development,well-kept Neurological Exam Mental Status Alert, fully oriented, [...] and s/p lumbar laminectomy in 07/2023. At [facility] in Dec 2023, ZNS was increased to 300mg qHS. No seizures since. Continues on Keppra 750mg BID, no side effects. Endorses she will be seeing a kidney specialist soon, BMP from April shows elevated creat (1.60) checo GFR of 32. She plans to see [...] which included: preparing to see the patient [id number] patient care completing clinical documentation obtaining and/or reviewing separately obtained history performing a medically appropriate examination Alejandro Villar MD, PhD cc: Primary Care Physician: Broderick Howard, DO [address] [facility] [address] Referring: Patient: Ms. Cassi Rodrigez [id number] [facility] [address] documented in this encounterOhiohealth [facility]07-[facility]-2024 Nurse Note* Tomasa Farfan RN - 05/23/2024 11:54 AM EDT Patient name and confirmed. Patient states she would like to receive Botox treatment today. 2 vials of Botox A (100 units in each) reconstituted with 2.2 cc of normal saline in each vial. Botox drawn up into four, 1 cc syringes. Each syringe containing 50 units of Botox. Assisted by: Lon VARELA Botox, 2 vials: Lot # [id number] Exp Lot # [id number] Exp Botox handed to Dr. Reilly to administer and verified order. [facility]07-09-2024 Nurse Note* Tomasa Farfan RN - 05/23/2024 11:54 AM EDT Patient name and confirmed. Patient states she would like to receive Botox treatment today. 2 vials of Botox A (100 units in each) reconstituted with 2.2 cc of normal saline in each vial. Botox drawn up into four, 1 cc syringes. Each syringe containing 50 units of Botox. Assisted by: Lon Adamsox, 2 vials: Lot # [id number] Exp Lot # [id number] Exp Botox handed to Dr. Reilly to administer and verified order. documented in this encounterOhiohealth Doctors Hospital07-09-2024 NoteHNO ID: [id number] Author: RANDA REILLY MD Service: ? Author [...] Injection Sites Muscle Fixed Site/Fixed Dose Bilat Flame Cutting Machine Operator Helper 20 U divided in 2 sites Procerus [...] Total Units wasted: 0 Randa Reilly MD [facility]07-09-2024 Procedure note* Randa Reilly MD - 05/23/2024 11:12 AM EDT BOTOX PROCEDURE NOTE Responsible practitioner performing the [...] Injection Sites Muscle Fixed Site/Fixed Dose Bilat Flame Cutting Machine Operator Helper 20 U divided in 2 sites Procerus [...] Total Units wasted: 0 Randa Reilly MD [facility] [place] [facility]07-09-2024 Procedure note* Randa Reilly MD - 05/23/2024 11:12 AM EDT BOTOX PROCEDURE NOTE Responsible practitioner performing the [...] procedure note Treatment # 1 Consent in [facility] Dilution: 5 units/0.1 ml ( 100 unit vial with 2 cc diluent or 200 unit vial with 4 cc diluent) Diluent: normal saline Indication: Chronic Intractable Migraine Right temporal metal plate with skin irregularity, no shunt Injection Sites Muscle Fixed Site/Fixed Dose Bilat Flame Cutting Machine Operator Helper 20 U divided in 2 sites Procerus [...] Total Units wasted: 0 Randa Reilly MD [facility] [place] documented in this encounterOhiohealth Doctors Hospital05-01-2024 NoteDUAL CHAMBER PACEMAKER REMOTE EVALUATION: PRESENTING EGM: AP/VS [...] under CARDIAC DATA AND REPORT, Scanned Documents section.[id number] History of Present illness Narrative* Randa Reilly MD - 03/07/2024 9:30 AM EDT PROGRESS NOTE- HEADACHE MEDICINE SERVICE DATE: March 07, 2024 Location: [facility] Participants: patient, and provider HPI: Here for follow up. Last seen in 2019. Then she had 3 Botox treatments with some relief. Stilldaily headaches but less severe episodes. Currently daily [...] I spent at least 50% of the [id number]-[id number] time in counseling, explanation of diagnosis, planning of further management, and answering all questions. Randa Reilly MD [facility] [place] documented in this encounterOhiohealth Doctors Hospital02-08-2024 Instructions* Patient Instructions* Lauren Otero APRN.ASSISTANT TEACHER PRIMARY - 12/23/2023 9:42 AM EST To schedule with headache clinic (can schedule at [facility]): [phone] documented in this encounterOhiohealth Doctors Hospital02-08-2024 History of Present illness Narrative* Alejandro Villar MD, PhD - 12/23/2023 9:00 AM EST [facility] CHIEF COMPLAINT: Patient presents [...] which is possible trigger. Reports multiple deaths inher family. She is taking LEV 750 mg [...] . She is unclear if she has ADIRENNE, tells her he will notice her staring/zoning out for about 10-30 seconds during this time. She reports that prior to resection, couldn't get me to come [place] but now he can get me out of[place]. In other health, she continues to experience persistent headaches. She was referred to the headacheclinic at [facility] in the past but at [...] focal weakness. PREVIOUS EVALUATIONS: [facility], 05/2015: Right Temporal Epilepsy Seizures: [...] know if she decides to pursue at [facility] - she needs for spine doctor, plans to talk to PCP first but will let us know if she needs referralto someone here at [facility] - ENT referral as needed [...] as answering the patient's questions. Attending Note: Ho findings confirmed. Patient examined. Discussed with the nurse practitioner and the patient. Plan as outlined. Alejandro Villar MD, PhD in collaboration with Lauren Otero APRN.ASSISTANT TEACHER PRIMARY December 23, 2023 documented in this encounterOhiohealth Doctors Hospital01-10-2024 Evaluation note* Encounter Date Diagnosis Assessment Notes Treatment Notes Treatment Clinical Notes Nov, Acute non-recurrent maxillary sinusitis (ICD-10 - J01.00) Instructed to use Robitussin or Mucinex for cough, saline or Flonase NS for congestion, Tylenol for pain and fever. Nov, Primary hypertension (ICD-10 - I10) Increased risk for more serious, prolonged illness. [facility] Other 10-30-2023 Miscellaneous Notes* Telephone Encounter - Mirian Bell APRN.CNP - 09/13/2023 1:53 PM EDT Thank you reviewed scan documents. Mirian Bell APRN.CNP * Telephone Encounter - Brenda Hodges RN - 09/13/2023 7:58 AM EDT Received medical records from [facility] and scanned into chart for review. documented in this encounterOhiohealth Doctors Hospital10-30-2023 Miscellaneous Notes* Telephone Encounter - Daniel [...] Please E-Scribe Caller Contact Number: Pharmacy Name: [facility] Pharmacy Number: [phone] Generic/ brand: 30 or 90 day supply requested: 90 Last appointment: 09/10/22 Next Appointment: 12/09/[address] Villar documented in this encounterOhiohealth Doctors Hospital10-25-2023 Instructions* Patient Instructions* Mirian Bell APRN.CNP - 09/08/2023 3:21 PM EDT Please schedule for device check & in one year Please have patient sign release of medical labs from [facility] had labs last month documented in this encounterOhiohealth Doctors Hospital10-25-2023 History of Present illness Narrative* Mirian Bell APRN.CNP - 09/08/2023 2:30 PM EDT Images from the original note were not included. [facility] [place] Guy Renteria Department of Cardiovascular Medicine SECTION OF CARDIAC PACING and ELECTROPHYSIOLOGY OUTPATIENT VISIT DATE September 08, 2023 OUTPATIENT VISIT TYPE ESTABLISHED PRIMARY CARE PHYSICIAN: Broderick Howard (Eveline) [address] [place] [address] CHIEF COMPLAINT: follow up device management HISTORY [...] right leg DVT (2012), seizure, SHELL, IBS, alf anticoagulation. 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 Annual labs, I will obtain from [facility] she had last month Follow up appointment: Dr. Garner & device check in one year I spent 25 to 30 minutes in the visit, with more than 50% of the total jdiy-ab-svlj time of the visit in counseling / coordination of care. CONTACT INFORMATION: Mirian Bell APRN.CNP, 09/08/23 [facility] Second Floor [address] [facility] [address] documented in this encounterOhiohealth Doctors Hospital10-11-2023 Evaluation note* Encounter Date Diagnosis Assessment Notes Treatment Notes Treatment Clinical Notes Aug, Lumbar stenosis with neurogenic claudication (ICD-10 - M48.062) [facility] Other 10-02-2023 Evaluation note* Encounter Date Diagnosis Assessment Notes Treatment Notes Treatment Clinical Notes Aug, Lumbar stenosis with neurogenic claudication (ICD-10 - M48.062) [facility] Other 09-28-2023 Evaluation note* Encounter Date Diagnosis Assessment Notes Treatment Notes Treatment Clinical Notes Jul, Lumbar stenosis with neurogenic claudication (ICD-10 - M48.062) [facility] Other 09-20-2023 Progress note Author Niki Weeks [facility] August 04, 2023 7:57am Note Date/Time August 04, 2023 7:57[facility] ENTER [address] [place] [address] Neurosurgery Progress Note Signed Patient: Cassi Rodrigez MR#: [id number] : 1950 Acct:[id number] Age/Sex: 73 / F Adm Date: 3 Loc: 4N Room: 8E5762-5 Type: REG SDC Attending Dr: Niki Weeks [...] % (Auto) 91.6, Lymph % (Auto) 4.4, Luce % (Auto) 4.0, Eos % (Auto) 0.0, Baso % (Auto) 0.0, Nucleat RBC Rel Count 0.1, Neut # (Auto) 10.4 H, Lymph #(Auto) 0.5 L, Luce # (Auto) 0.5, Eos # (Auto) 0.0, [...] Niki Weeks MD> 08/04/23 0757 [facility] Work Phone: 1(166) 992-288608-23-2023 Evaluation note* Encounter Date Diagnosis Assessment Notes Treatment Notes Treatment Clinical Notes Jun, Lumbar stenosis with neurogenic claudication (ICD-10 - M48.062) [facility] Other 06-22-2023 Evaluation note* Encounter Date Diagnosis [...] will continue with this therapy without change. [facility] Other 06-19-2023 Evaluation note* Encounter Date Diagnosis Assessment Notes Treatment Notes Treatment Clinical Notes Apr, Lumbosacral spondylosis with radiculopathy (ICD-10 - M47.27) [facility] Other 06-19-2023 Evaluation note* Encounter Date Diagnosis [...] until MRI completed MRI being rescheduled for [facility] due to PM Apr, Stage 3b chronic kidney disease (ICD-10 - N18.32) The patient is instructed on adequate control of hypertension and diabetes, if appropriate. They are also educated on the associated risks of NSAIDs and PPI use with kidney disease. They were instructed on adequate fluid balance and to avoid dehydration. Apr, History of lumbar fusion (ICD-10 - Z98.1) [facility] Other 05-15-2023 Evaluation note* Encounter Date Diagnosis Assessment Notes Treatment Notes Treatment Clinical Notes March, Lumbosacral spondylosis with radiculopathy (ICD-10 - M47.27) [facility] Other 05-11-2023 Evaluation note* Encounter Date Diagnosis Assessment Notes Treatment Notes Treatment Clinical Notes 11 May, 2023 Primary hypertension (ICD-10 - I10) This patient [...] use, the patient reduces the risk for OR, CVA, HTN, cardiac dysrhythmias and sudden cardiac [...] Other Stable w/o breakthrough Sz. 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 Continue surveillance w/ [facility] Other 2023 Evaluation note* Encounter Date Diagnosis Assessment Notes Treatment Notes Treatment Clinical Notes Jan, Nausea (ICD-10 - R11.0) [facility] Other 02-23-2023 Evaluation note* Encounter Date Diagnosis Assessment Notes Treatment Notes Treatment Clinical Notes Dec, Nausea (ICD-10 - R11.0) Increase Amitriptyline to 15mg at bedtime Dec, Constipation (ICD-10 - K59.00) Start Linzess 72mcg daily Pt to call if symptoms worsen or return Follow up in 4 months [facility] Other 01-11-2023 Evaluation note* Encounter Date Diagnosis [...] use, the patient reduces the risk for OR, CVA, HTN, cardiac dysrhythmias and sudden cardiac [...] to trial Amitiza and discuss w/ GI [facility] Other 10-27-2022 History of Present illness Narrative* Lauren Otero APRN.NIC - 09/10/2022 1:53 PM EDT [facility] CHIEF COMPLAINT: Patient presents [...] She was referred to the headacheclinic at [facility] in the past but at [...] focal weakness. PREVIOUS EVALUATIONS: [facility], 05/2015: Right Temporal Epilepsy Seizures: [...] by Dr. Alejandro Villar. documented in this encounterOhiohealth [facility] Hospital09-08-2022 History of Present illness Narrative* Kitty Millard MD - 07/23/2022 10:00 AM EDT Images from the original note were not included. [facility] [place] [facility]eria Department of Cardiovascular Medicine SECTION OF CARDIAC PACING and ELECTROPHYSIOLOGY OUTPATIENT VISIT DATE July 23, 2022 OUTPATIENT VISIT TYPE ESTABLISHED PRIMARY CARE PHYSICIAN: Broderick Howard MD ([facility]) [address] [place] [address] CHIEF COMPLAINT: Pacemaker management HISTORY OF PRESENT [...] Lymph 1.00 - 4.00 k/uL 0.93 (L) Luce% % 7.7 Abs Luce <0.87 k/uL 0.32 Eosin% % 5.3 Abs [...] with me on an annual basis Kitty Millard MD Electrophysiology documented in this encounterOhiohealth [facility] Hospital02-22-2022 Evaluation note* Encounter Date Diagnosis Assessment Notes Treatment Notes Treatment Clinical Notes Dec, Nausea (ICD-10 - R11.0) PATIENT STATES THAT THIS HAS IMPROVED. PATIENT TO CONTINUE ON THE AMITRIPTYLINE DOSE AT THIS TIME. [facility] Other 03-12-2015 History of Past illness Narrative* Problem Noted Date Resolved Date Seizure 01/24/2015 06/21/2018 documented as of this encounter (statuses as of 07/23/2022) [facility] History of Past illness Narrative* Problem Noted Date Resolved Date Seizure 01/24/2015 06/21/2018 documented as of this encounter (statuses as of 08/26/2022) [facility] History of Past illness Narrative* Problem Noted Date Resolved Date Seizure 01/24/2015 06/21/2018 documented as of this encounter (statuses as of 09/10/2022) [address] History of Past illness Narrative* Problem Noted Date Resolved Date Seizure 01/24/2015 06/21/2018 documented as of this encounter (statuses as of 11/26/2022) [address]2015 History of Past illness Narrative* Problem Noted Date Resolved Date Seizure 01/24/2015 06/21/2018 documented as of this encounter (statuses as of 02/25/2023) [address]2015 History of Past illness Narrative* Problem Noted Date Diagnosed Date Resolved Date Seizure 01/24/2015 06/21/2018 documented as of this encounter (statuses as of 06/17/2023) [address]2015 History of Past illness Narrative* Problem Noted Date Diagnosed Date Resolved Date Seizure 01/24/2015 06/21/2018 documented as of this encounter (statuses as of 09/08/2023) [address]2015 History of Past illness Narrative* Problem Noted Date Diagnosed Date Resolved Date Seizure 01/24/2015 06/21/2018 documented as of this encounter (statuses as of 09/09/2023) [address] History of Past illness Narrative* Problem Noted Date Diagnosed Date Resolved Date Seizure 01/24/2015 06/21/2018 documented as of this encounter (statuses as of 09/14/2023) [address] History of Past illness Narrative* Problem Noted Date Diagnosed Date Resolved Date Seizure 01/24/2015 06/21/2018 documented as of this encounter (statuses as of 09/14/2023) [address] History of Past illness Narrative* Problem Noted Date Diagnosed Date Resolved Date Seizure 01/24/2015 06/21/2018 documented as of this encounter (statuses as of 12/23/2023) [facility] Hospital[facility] summary Author Niki Weeks [facility] August 05, 2023 8:09am Note Date/Time August 05, 2023 8:09am [facility] ENTER [address] [place] [address] Discharge Summary Signed Patient: Cassi Rodrigez MR#: [id number] : 1950 Acct:[id number] Age/Sex: 73 / F Adm Date: 3 Loc: 4N Room: 5A7205-[address]: Niki Weeks MD Copies to: DO Niki Martiens MD~ Providers Date of Discharge: 08/05/23 Discharging [...] % (Auto) 77.1, Lymph % (Auto) 11.8, Luce % (Auto) 9.2, Eos % (Auto) 1.7, Baso % (Auto) 0.2, Nucleat RBC Rel Count 0.4, Neut # (Auto) 5.6, Lymph # (Auto) 0.9 L, Luce # (Auto) 0.7, Eos # (Auto) 0.1, Baso # (Auto) 0.0 Exam Physical Exam Vital Signs: Temp Pulse Resp BP Pulse Ox O2 Del Method O2 Flow Rate 97.8 F 63 14 117/73 97 Room Air 3 08/05/23 07:08/05/23 07:08/05/23 07:08/05/23 07:08/05/23 07:08/05/23 07:08/04/23 00:00 Narrative: Mrs. Rodrigez [...] signed by Niki Weeks MD> 08/05/23 0809 [facility] Work Phone: Evaluation + Plan note Future Appointments Appointment Date:10/25/2024 10:30:00 AM Scheduled Provider: Location:[facility] Appointment Type:Surgical PAT FT Appointment Date:11/02/2024 12:30:00 PM Scheduled Provider: Location:[facility] Appointment Type:Surgery FT [facility] Evaluation note* Diagnosis Chronic fatigue- Primary Other malaise and fatigue documented [facility] encounter [facility]* Diagnosis Partial epilepsy with impairment of consciousness, intractable (HCC) Localization-related (focal) (partial) epilepsy and epileptic syndromes with complex partial seizures, with intractable epilepsy documented in this encounter [facility] HospitalEvaluation noteNo assessment information [facility] Work Phone: Evaluation noteNo InformationNort [employer] Other evaluation note* Diagnosis Onset Date Resolution Status Lumbar stenosis with neurogenic claudication acute [facility] Work Phone: Evaluation note* Diagnosis Sinus node dysfunction (HCC)- Primary Sinoatrial node dysfunction Cardiac pacemaker in situ Bradycardia Other specified cardiac dysrhythmias [facility] Diagnosis Partial epilepsy with impairment of consciousness, intractable (HCC) Localization-related (focal) (partial) epilepsy and epileptic syndromes with complex partial seizures, with intractable epilepsy [facility] encounter [facility]* Diagnosis Pacemaker [Z95.0]- Primary Cardiac pacemaker in situ documented in this encounter [facility]* Diagnosis Intractable 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 aura and without status migrainosus- Primary Chronic migraine without aura, with intractable migraine, so stated, without mention of status migrainosus [facility] Diagnosis Intractable 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 aura and without status migrainosus- Primary Chronic migraine without aura, with intractable migraine, so stated, without mention of status migrainosus Cervicalgia SHELL (obstructive sleep apnea) Obstructive sleep apnea (adult) (pediatric) [facility]* Diagnosis Onset Date Resolution Status Hypertension acute Lumbar stenosis with neurogenic claudication acute [facility] Work Phone: Evaluation note* Diagnosis Onset Date Resolution Status Hypertension acute Lumbar stenosis with neurogenic claudication acute Age-related osteoporosis wit hout current pathological fracture acute Chronic kidney disease acute Hypertension acute Lumbosacral spondylosis with radiculopathy acute Obstructive sleep apnea acut e [facility] Work Phone: Evaluation note* Diagnosis Intractable 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 aura and without status migrainosus- Primary Chronic migraine without aura, with intractable migraine, so stated, without mention of status migrainosus [facility] Diagnosis Onset Date Resolution Status Age-related osteoporosis wit hout current pathological fracture acute Chronic kidney disease acute Hypertension acute Lumbosacral spondylosis with radiculopathy acute Obstructive sleep apnea acut e Arthropathy of right hip acu te Greater trochanteric bursitis of both hips acute History of lumbar surgery ac [facility] Pain of both sacroiliac joints acute [facility] Work Phone: Evaluation note* Diagnosis Onset Date Resolution Status Age-related osteoporosis wit hout current pathological fracture acute Chronic kidney disease acute Hypertension acute Lumbosacral spondylosis with radiculopathy acute Obstructive sleep apnea acut e Arthropathy of right hip acu te Greater trochanteric bursitis of both hips acute History of lumbar surgery ac [facility] Pain of both sacroiliac joints acute Anemia of renal disease acut e Chronic kidney disease acute [id number] acute Leukopenia acute Pancreatic cancer acute Secondary hyperparathyroidism acute Vitamin D deficiency acute [facility] Work Phone: Evaluation note* Diagnosis Onset Date Resolution Status Age-related osteoporosis wit hout current pathological fracture acute Chronic kidney disease acute Hypertension acute Lumbosacral spondylosis with radiculopathy acute Obstructive sleep apnea acut e Arthropathy of right hip acu te Greater trochanteric bursitis of both hips acute History of lumbar surgery ac [facility] Pain of both sacroiliac joints acute Anemia of renal disease acut e CKD (chronic kidney disease) stage 4, GFR 15-29 ml/min acute [id number] acute Leukopenia acute Secondary hyperparathyroidism acute Age-related osteoporosis wit hout current pathological fracture acute Chronic kidney disease acute Gastroesophageal reflux dise ase with esophagitis without hemorrhage acute History of pancreatic cancer acute Hypertension acute Lumbar stenosis with neurogenic claudication acute Major depression acute Medicare annual wellness visit, subsequent noneactive Screening mammogram for breast cancer noneactive [facility] Work Phone: Evaluation note* Diagnosis Focal epilepsy with impairment of consciousness, intractable (HCC)- Primary Localization-related (focal) (partial) epilepsy and epileptic syndromes with simple partial seizures, with intractable epilepsy Partial epilepsy with impairment of consciousness, intractable (HCC) Localization-related (focal) (partial) epilepsy and epileptic syndromes with complex partial seizures, with intractable epilepsy [facility] Diagnosis Onset Date Resolution Status Arthropathy of right hip acu te Greater trochanteric bursitis of both hips acute History of lumbar surgery ac [facility] Pain of both sacroiliac joints acute Anemia of renal disease acut e CKD (chronic kidney disease) stage 4, GFR 15-29 ml/min acute [id number] acute Leukopenia acute Secondary hyperparathyroidism acute Age-related osteoporosis wit hout current pathological fracture acute Chronic kidney disease acute Gastroesophageal reflux dise ase with esophagitis without hemorrhage acute History of pancreatic cancer acute Hypertension acute Lumbar stenosis with neurogenic claudication acute Major depression acute Medicare annual wellness visit, subsequent noneactive Screening mammogram for breast cancer noneactive [facility] Work Phone: Evaluation note* Diagnosis Onset Date Resolution Status Anemia of renal disease acut e CKD (chronic kidney disease) stage 4, GFR 15-29 ml/min acute [id number] acute Leukopenia acute Secondary hyperparathyroidism acute Age-related osteoporosis wit hout current pathological fracture acute Chronic kidney disease acute Gastroesophageal reflux dise ase with esophagitis without hemorrhage acute History of pancreatic cancer acute Hypertension acute Lumbar stenosis with neurogenic claudication acute Major depression acute Medicare annual wellness visit, subsequent noneactive Screening mammogram for breast cancer noneactive Constipation acute GERD (gastroesophageal reflux disease) acute Nausea acute Pancreatic cancer acute [facility] Work Phone: Evaluation note* Diagnosis Sinus node dysfunction (HCC)- Primary Sinoatrial node dysfunction Cardiac pacemaker in situ Bradycardia Other specified cardiac dysrhythmias [facility] Diagnosis Intractable 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 aura and without status migrainosus- Primary Chronic migraine without aura, with intractable migraine, so stated, without mention of status migrainosus [facility] Diagnosis Onset Date Resolution Status Age-related osteoporosis wit hout current pathological fracture acute Chronic kidney disease acute Gastroesophageal reflux dise ase with esophagitis without hemorrhage acute History of pancreatic cancer acute Hypertension acute Lumbar stenosis with neurogenic claudication acute Major depression acute Medicare annual wellness visit, subsequent noneactive Screening mammogram for breast cancer noneactive Constipation acute GERD (gastroesophageal reflux disease) acute Nausea acute Pancreatic cancer acute History of DVT (deep vein thrombosis) acute Hypertension acute Swelling of right lower extremity acute Anemia of renal disease acut e CKD (chronic kidney disease) stage 4, GFR 15-29 ml/min acute [id number] acute Secondary hyperparathyroidism acute [facility] Work Phone: Evaluation note* Diagnosis Abdominal wall hematoma, initial encounter- Primary [facility] Diagnosis Localization-related (focal) (partial) symptomatic epilepsy and epileptic syndromes with complex partial seizures, intractable, without status epilepticus (HCC) [facility] Diagnosis Abdominal wall hematoma, subsequent encounter- Primary [facility] Diagnosis Localization-related (focal) (partial) symptomatic epilepsy and epileptic syndromes with complex partial seizures, intractable, without status epilepticus (HCC)- Primary Memory loss [facility]* Diagnosis Intractable 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 aura and without status migrainosus- Primary Chronic migraine without aura, with intractable migraine, so stated, without mention of status migrainosus documented [facility]* Diagnosis MCI (mild cognitive impairment)- Primary Mild cognitive impairment, so stated [facility]* Diagnosis Intractable 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 aura and without status migrainosus- Primary Chronic migraine without aura, with intractable migraine, so stated, without mention of status migrainosus [facility]* Diagnosis Chronic pain syndrome- Primary MCI (mild cognitive impairment) Mild cognitive impairment, so stated Sinus node dysfunction (HCC) Sinoatrial node dysfunction Obesity, Class II, BMI 35-39.9 Obesity, unspecified [facility]* Diagnosis Onset Date Resolution Status Admit Date Age-related osteoporosis without current pathological fracture acute July 02 2:50pm Chronic kidney disease acute Au 2024 2:50pm Gastroesophageal reflux dise ase with esophagitis without hemorrhage acute July 02 2:50pm History of pancreatic cancer acute July 02, 2025 2:50pm Hypertension acute July 02, 2025 2:50pm Lumbar stenosis with neuroge ravindra claudication acute July 02 2:50pm Major depression acute June 152024 2:50pm Medicare annual wellness vis it, subsequent noneactive July 02 2:50pm Screening mammogram for [facility] cancer noneactive July 02 2:50pm [facility] Work Phone: History general Narrative - Reported* Type Description Date Surgical History back surgery-2 Surgical History cervical fusion Surgical History cholecystectomy Surgical History whipple procedure 2011 Surgical History appendectomy Surgical History hammer toe Surgical History rotator cuff-left Surgical History temporal lumpectomy Hospitalization History see surgical [facility] Other History general Narrative - Reported* Type [...] Essential hypertension Medical History Current use of alf anticoa gulation Medical History History of pancreatic [...] temporal lumpectomy Hospitalization History see surgical hx [facility] Other [facility]ise[facility] general Narrative - Reported* Type Description Date [...] Essential hypertension Medical History Current use of mixer tender anticoa gulation Medical History History of pancreatic [...] Port removal Hospitalization History see surgical hx [place] Other History general Narrative - Reported* Type [...] Obstructive sleep apnea [facility] Medical [...] Essential hypertension Medical History Current use of alf anticoa gulation Medical History History of pancreatic [...] L4-5 07/2023 Hospitalization History see surgical hx [facility] Other Hospital course Narrative No data available for this section [facility] Discharge instructions Additional Instructions [facility] Work Phone: Hospital Discharge instructionsAmbulatory Orders* Referral to Orthopedic Surgery Location: None Selected [facility] Work Phone: Hospital Discharge instructions No data available for this section [facility] Discharge instructions Additional Instructions As discussed you should hold your Coumadin for 5 days Wear abdominal binder as discussed Call Dr. Howard your primary care doctor on Wednesday let him know that you should be evaluated Please return here if you develop any dizziness, chest pain, shortness of breath, fevers, chills increased abdominal swelling, lightheadedness or any other [facility] Work Phone: Progress note Author Niki Weeks [facility] August 05, 2023 8:00am Note Date/Time August 05, 2023 8:00am [facility] [address] [place] [address] Neurosurgery Progress Note Signed Patient: Cassi Rodrigez MR#: [id number] : 1950 Acct:[id number] Age/Sex: 73 / F Adm Date: 3 Loc: 4N Room: 4K0834-6 Type: [facility] Attending Dr: Niki Weeks MD [...] % (Auto) 77.1, Lymph % (Auto) 11.8, Luce % (Auto) 9.2, Eos % (Auto) 1.7, Baso % (Auto) 0.2, Nucleat RBC Rel Count 0.4, Neut # (Auto) 5.6, Lymph # (Auto) 0.9 L, Luce # (Auto) 0.7, Eos # (Auto) 0.1, [...] Niki Weeks MD> 08/05/23 0800 [facility] Work Phone: Progress note No data available for this section [facility] Reason for referral (narrative)* Outpatient Procedure (Routine) - Closed Specialty Diagnoses / Procedures Referred By Contradha t Referred To [facility] Diagnoses Chronic fatigue Procedures ECG COMPLETE ECG ROUTINE ECG W/LEAST 12 LDS W/I&[place] [address] [place] [address] [facility] [place] [address] [place] [address] Referral ID Status Reason Start Date Expiration Date V isits Requested Visits Authorized [id number] Closed Auto-Generate d Referral 07/23/2022 07/23/2023 1 1 [facility] for referral (narrative)* Outpatient Procedure (Routine) - Pending Review Specialty Diagnoses / Procedures Referred By Contac t Referred To Contact [facility] Diagnoses Sinus node dysfunction (HCC) Cardiac pacemaker in situ Bradycardia Procedures ECG COMPLETE ECG ROUTINE ECG W/LEAST 12 LDS W/I&R Mirian Bell APRN.[employer] [address] [place] [address] [facility] [place] [address] [place] [id number] Referral ID Status Reason Start Date Expiration Date Visits Requested Visits Authorized [id number] Pending Review Auto-Generat ed Referral 3 09/07/2024 1 1 [facility] for referral (narrative)* Outpatient Procedure (Routine) - Pending Review Specialty Diagnoses / Procedures Referred By Contac t Referred To Contact [facility] Diagnoses Sinus node dysfunction (HCC) Procedures ECHO ECHO TTHRC R-T 2D W/WOM-MODE COMPL SPEC&[place] [address] [place] [address] [id number] [place] [address] Referral ID Status Reason Start Date Expiration Date Visits Requested Visits Authorized [id number] Pending Review Auto-Generat ed Referral 08/31/2025 1 1 * Outpatient Procedure (Routine) - New Request Specialty Diagnoses / Procedures Referred By Contac t Referred To Contact [facility] Diagnoses Sinus node dysfunction (HCC) Procedures ECG COMPLETE ECG ROUTINE ECG W/LEAST 12 LDS W/I&[place] [address] [place] [address] [facility] [id number] [place] [address] Referral ID Status Reason Start Date Expiration Date Visits Requested Visits Authorized [id number] New Request Auto-Generat ed Referral 4 08/31/2025 1 1 [facility]No reason for referral [facility]: Reason for visit Narrative* Injectable (Routine) - Authorized Specialty Diagnoses / Procedures Referred By Contac t Referred To Contact [facility] Diagnoses Chronic migraine without aura, intractable, without status migrainosus Procedures BOTULINUM TOXIN A PER 1 UNIT CHEMODERVATE FACIAL/TRIGEM/[place] [address] [place] [address] Phone: tel: fax: Neurology [address] [place] [address] Phone: tel: fax: Referral ID Status Reason Start Date Expiration Date V isits Requested Visits Authorized [id number] Authorized 03/13/2024 11/14/2025 8 8 [facility] Summary Purpose Family History Relationship Condition [...] Advance Directives No September 15, 2019 12:04pm Advance Directive Response Recorded Date/ Time Advance Directives No September 15, 2019 11:04am Chief Complaint and Reason for Visit Chief Complaint m47.27 Chief Complaint m47.27 m47.27 Chief Complaint m47.27 m47.27 stenosis Chief Complaint m47.27 m47.27 stenosis stenosis Reason for Visit Lumbar stenosis with neurogenic claudication Chief Complaint Cough , Drainage For Weeks [phone] BACK ISSUES Chief Complaint BACK ISSUES Amb [...] Anemia of renal disease Chronic kidney disease [id number] Leukopenia Pancreatic cancer Secondary hyperparathyroidism Vitamin D [...] kidney disease) stage 4, GFR 15-29 ml/min [id number] Leukopenia Secondary hyperparathyroidism Age-related osteoporosis without current [...] kidney disease) stage 4, GFR 15-29 ml/min [id number] Leukopenia Secondary hyperparathyroidism Age-related osteoporosis without current pathological fracture Chronic kidney disease Gastroesophageal reflux disease with esophagitis without hemorrhage History of pancreatic cancer Hypertension Lumbar stenosis with neurogenic claudication Major depression Medicare annual wellness visit, subsequent Screening mammogram for breast cancer Chief Complaint RENAL CKD MAWV Unknown 1 YR F/U-CONSTIPATION/NAUSEA Reason for Visit Anemia of renal dise [facility] CKD (chronic kidney disease) stage 4, GFR 15-29 ml/min [id number] Leukopenia Secondary hyperparathyroidism Age-related osteoporosis without current pathological fracture Chronic kidney disease Gastroesophageal reflux disease with esophagitis without hemorrhage History of pancreatic cancer Hypertension Lumbar stenosis with neurogenic claudication Major depression Medicare annual wellness visit, subsequent Screening mammogram for breast cancer Constipation GERD (gastroesophageal reflux disease) Nausea Pancreatic cancer Chief Complaint RENAL CKD MAWV Unknown 1 YR F/U-CONSTIPATION/NAUSEA Flu Shot Reason for Visit Anemia of renal dise [facility] CKD (chronic kidney disease) stage 4, GFR 15-29 ml/min [id number] Leukopenia Secondary hyperparathyroidism Age-related osteoporosis without current pathological fracture Chronic kidney disease Gastroesophageal reflux disease with esophagitis without hemorrhage History of pancreatic cancer Hypertension Lumbar stenosis with neurogenic claudication Major depression Medicare annual wellness visit, subsequent Screening mammogram for breast cancer Constipation GERD (gastroesophageal reflux disease) Nausea Pancreatic cancer Chief Complaint RENAL CKD MAWV Unknown 1 YR F/U-CONSTIPATION/NAUSEA Flu Shot white spot on your leg, red bumps, tender Reason for Visit Anemia of renal dise [facility] CKD (chronic kidney disease) stage 4, GFR 15-29 ml/min [id number] Leukopenia Secondary hyperparathyroidism Age-related osteoporosis without current pathological fracture Chronic kidney disease Gastroesophageal reflux disease with esophagitis without hemorrhage History of pancreatic cancer Hypertension Lumbar stenosis with neurogenic claudication Major depression Medicare annual wellness visit, subsequent Screening mammogram for breast cancer Constipation GERD (gastroesophageal reflux disease) Nausea Pancreatic cancer Chief Complaint MAWV Unknown 1 YR F/U-CONSTIPATION/NAUSEA Flu Shot white spot on your leg, red bumps, tender RENAL 3 MONTH F/U Reason for Visit Age-related osteopor osis without current pathological fracture Chronic kidney disease Gastroesophageal reflux disease with esophagitis without hemorrhage History of pancreatic cancer Hypertension Lumbar stenosis with neurogenic claudication Major depression Medicare annual wellness visit, subsequent Screening mammogram for breast cancer Constipation GERD (gastroesophageal reflux disease) Nausea Pancreatic cancer History of DVT (deep vein thrombosis) Hypertension Swelling of right lower extremity Anemia of renal disease CKD (chronic kidney disease) stage 4, GFR 15-29 ml/min [id number] Secondary hyperparathyroidism Chief Complaint Admit Date 1 YR F/U-CONSTIPATION/NAUSEA August 10:43am Flu Shot August 29, 2024 2 :26pm white spot on your leg, red bumps, tende r August 30, 2024 3:20pm RENAL 3 MONTH F/U September 07, 2024 9 :09am CC Adult Risk Stratification October 252023 1:08pm 4 month f/u/preop clearance October 8:49am Abdominal Pain November 17, 2024 1: 36pm Reason for Visit Admit Date Constipation August 29, 2024 1 0:43am GERD (gastroesophageal reflux disease) O ctober 2023 10:43am Nausea August 29, 2024 1 0:43am Pancreatic cancer August 29, 2024 1 0:43am History of DVT (deep vein thrombosis) Oc tober 2023 3:20pm Hypertension August 30, 2024 3 :20pm Swelling of right lower extremity Octobe r 2023 3:20pm Anemia of renal disease September 07 9:09am CKD (chronic kidney disease) stage 4, GF R 15-29 ml/min September 07, 2024 9:09am Hypertensive chronic kidney disease with stage 1 through stage 4 chronic ki September 07, 2024 9:09am Secondary hyperparathyroidism September 072023 9:09am Chronic kidney disease October 27 8:49am Gastroesophageal reflux dise ase with esophagitis without hemorrhage October 27, 2024 8:49am History of DVT (deep vein thrombosis) De cember 2023 8:49am Hypertension October 27, 2024 8:49am Lumbar stenosis with neurogenic claudica tion October 27, 2024 8:49am Major depression October 27, 2024 8:49am Preop exam for internal medicine [facility] r 2023 8:49am Chief Complaint Admit Date 1 YR F/U-CONSTIPATION/NAUSEA August 10:43am Flu Shot August 29, 2024 2 :26pm white spot on your leg, red bumps, tende r August 30, 2024 3:20pm RENAL 3 MONTH F/U September 07, 2024 9 :09am CC Adult Risk Stratification October 252023 1:08pm 4 month f/u/preop clearance October 8:49am Abdominal Pain November 17, 2024 1: 36pm Stomach f/u November 24, 2024 1 0:35am Reason for Visit Admit Date Constipation August 29, 2024 1 0:43am GERD (gastroesophageal reflux disease) O ctober 2023 10:43am Nausea August 29, 2024 1 0:43am Pancreatic cancer August 29, 2024 1 0:43am History of DVT (deep vein thrombosis) Oc tober 2023 3:20pm Hypertension August 30, 2024 3 :20pm Swelling of right lower extremity Octobe r 2023 3:20pm Anemia of renal disease September 07 9:09am CKD (chronic kidney disease) stage 4, GF R 15-29 ml/min September 07, 2024 9:09am Hypertensive chronic kidney disease with stage 1 through stage 4 chronic ki September 07, 2024 9:09am Secondary hyperparathyroidism September 072023 9:09am Chronic kidney disease October 27 8:49am Gastroesophageal reflux dise ase with esophagitis without hemorrhage October 27, 2024 8:49am History of DVT (deep vein thrombosis) De cember 2023 8:49am Hypertension October 27, 2024 8:49am Lumbar stenosis with neurogenic claudica tion October 27, 2024 8:49am Major depression October 27, 2024 8:49am Preop exam for internal medicine [facility] r 2023 8:49am Adverse effect of anticoagul ant antagonists, vitamin k and other coagulants November 17, 2024 1:36pm Bruising at injection site November 17, 2024 1:36pm Cellulitis November 17, 2024 1: 36pm Abscess of abdominal wall November 24, 2024 10:35am Adverse effect of anticoagul ant antagonists, vitamin k and other coagulants November 24, 2024 10:35am Cellulitis November 24, 2024 1 0:35am Chief Complaint Admit Date 1 YR F/U-CONSTIPATION/NAUSEA August 10:43am Flu Shot August 29, 2024 2 :26pm white spot on your leg, red bumps, tende r August 30, 2024 3:20pm RENAL 3 MONTH F/U September 07, 2024 9 :09am CC Adult Risk Stratification October 252023 1:08pm 4 month f/u/preop clearance October 8:49am Abdominal Pain November 17, 2024 1: 36pm Stomach f/u November 24, 2024 1 0:35am stomach pain-sent by November 24 1:33pm Chief Complaint Admit Date white spot on your leg, red bumps, tende r August 30, 2024 3:20pm RENAL 3 MONTH F/U September 07, 2024 9 :09am CC Adult Risk Stratification October 252023 1:08pm 4 month f/u/preop clearance October 8:49am Abdominal Pain November 17, 2024 1: 36pm Stomach f/u November 24, 2024 1 0:35am stomach pain-sent by November 24 1:33pm [facility] ER f/u November 28, 2024 1 0:54am Reason for Visit Admit Date History of DVT (deep vein thrombosis) Oc tober 2023 3:20pm Hypertension August 30, 2024 3 :20pm Swelling of right lower extremity Octobe r 2023 3:20pm Anemia of renal disease September 07 9:09am CKD (chronic kidney disease) stage 4, GF R 15-29 ml/min September 07, 2024 9:09am Hypertensive chronic kidney disease with stage 1 through stage 4 chronic ki September 07, 2024 9:09am Secondary hyperparathyroidism September 072023 9:09am Chronic kidney disease October 27 8:49am Gastroesophageal reflux dise ase with esophagitis without hemorrhage October 27, 2024 8:49am History of DVT (deep vein thrombosis) De chloeber 2023 8:49am Hypertension October 27, 2024 8:49am Lumbar stenosis with neurogenic claudica tion October 27, 2024 8:49am Major depression October 27, 2024 8:49am Preop exam for internal medicine [facility] 2023 8:49am Adverse effect of anticoagul ant antagonists, vitamin k and other coagulants November 17, 2024 1:36pm Bruising at injection site November 17, 2024 1:36pm Cellulitis November 17, 2024 1: 36pm Abscess of abdominal wall November 24, 2024 10:35am Adverse effect of anticoagul ant antagonists, vitamin k and other coagulants November 24, 2024 10:35am Cellulitis November 24, 2024 1 0:35am Abdominal hematoma November 28, 2024 1 0:54am Adverse effect of anticoagul ant antagonists, vitamin k and other coagulants November 28, 2024 10:54am Cellulitis November 28, 2024 1 0:54am Chief Complaint Admit Date CC Adult Risk Stratification October 252023 1:08pm 4 month f/u/preop clearance October 8:49am Abdominal Pain November 17, 2024 1: 36pm Stomach f/u November 24, 2024 1 0:35am stomach pain-sent by November 24 1:33pm [facility] ER f/u November 28, 2024 1 0:54am follow up December 08, 2024 9 :51am Reason for Visit Admit Date Chronic kidney disease October 27 8:49am Gastroesophageal reflux dise ase with esophagitis without hemorrhage October 27, 2024 8:49am History of DVT (deep vein thrombosis) De muscogee2023 8:49am Hypertension October 27, 2024 8:49am Lumbar stenosis with neurogenic claudica tion October 27, 2024 8:49am Major depression October 27, 2024 8:49am Preop exam for internal medicine [facility] 2023 8:49am Adverse effect of anticoagul ant antagonists, vitamin k and other coagulants November 17, 2024 1:36pm Bruising at injection site November 17, 2024 1:36pm Cellulitis November 17, 2024 1: 36pm Adverse effect of anticoagul ant antagonists, vitamin k and other coagulants November 24, 2024 10:35am Cellulitis November 24, 2024 1 0:35am Abscess of abdominal wall November 24, 2024 10:35am Adverse effect of anticoagul ant antagonists, vitamin k and other coagulants November 28, 2024 10:54am Cellulitis November 28, 2024 1 0:54am Abdominal hematoma November 28, 2024 1 0:54am Adverse effect of anticoagul ant antagonists, vitamin k and other coagulants December 08, 2024 9:51am Cellulitis December 08, 2024 9 :51am Chief Complaint Admit Date Stomach f/u November 24, 2024 1 0:35am stomach pain-sent by November 24 1:33pm [facility] ER f/u November 28, 2024 1 0:54am follow up December 08, 2024 9 :51am swollen legs February 21, 2025 1:49 pm Reason for Visit Admit Date Adverse effect of anticoagul ant antagonists, vitamin k and other coagulants November 24, 2024 10:35am Cellulitis November 24, 2024 1 0:35am Abscess of abdominal wall November 24, 2024 10:35am Adverse effect of anticoagul ant antagonists, vitamin k and other coagulants November 28, 2024 10:54am Cellulitis November 28, 2024 1 0:54am Abdominal hematoma November 28, 2024 1 0:54am Adverse effect of anticoagul ant antagonists, vitamin k and other coagulants December 08, 2024 9:51am Blister (nonthermal) of abdominal wall, initial encounter December 08, 2024 9:51am Hematoma of abdominal wall December 08, 2024 9:51am Bilateral lower extremity edema February 1:49pm History of DVT (deep vein thrombosis) Ap ril 2024 1:49pm Chief Complaint Admit Date Stomach f/u November 24, 2024 1 0:35am stomach pain-sent by November 24 1:33pm [facility] ER f/u November 28, 2024 1 0:54am follow up December 08, 2024 9 :51am swollen legs February 21, 2025 1:49 pm RENAL 6 MONTH F/U February 22, 2025 10: 30am Reason for Visit Admit Date Adverse effect of anticoagul ant antagonists, vitamin k and other coagulants November 24, 2024 10:35am Cellulitis November 24, 2024 1 0:35am Abscess of abdominal wall November 24, 2024 10:35am Adverse effect of anticoagul ant antagonists, vitamin k and other coagulants November 28, 2024 10:54am Cellulitis November 28, 2024 1 0:54am Abdominal hematoma November 28, 2024 1 0:54am Adverse effect of anticoagul ant antagonists, vitamin k and other coagulants December 08, 2024 9:51am Blister (nonthermal) of abdominal wall, initial encounter December 08, 2024 9:51am Hematoma of abdominal wall December 08, 2024 9:51am Bilateral lower extremity edema February 1:49pm History of DVT (deep vein thrombosis) Ap ril 2024 1:49pm Anemia of renal disease February 22, 2025 10:30am Bilateral lower extremity edema February 222024 10:30am CKD (chronic kidney disease) stage 4, GF R 15-29 ml/min February 22, 2025 10:30am Hypertensive chronic kidney disease with stage 1 through stage 4 chronic ki February 22, 2025 10:30am Secondary hyperparathyroidism February 10:30am Chief Complaint Admit Date Wellness July 02, 2025 2: 50pm Reason for Visit Admit Date Age-related osteoporosis wit hout current pathological fracture July 02, 2025 2:50pm Chronic kidney disease July 02, 2025 2:50pm Gastroesophageal reflux dise ase with esophagitis without hemorrhage July 02, 2025 2:50pm History of pancreatic cancer June 2:50pm Hypertension July 02, 2025 2: 50pm Lumbar stenosis with neurogenic claudica tion July 02, 2025 2:50pm Major depression July 02, 2025 2: 50pm Medicare annual wellness visit, subseque nt July 02, 2025 2:50pm Screening mammogram for breast cancer Au kylie 2024 2:50pm Reason for Referral Specialty Diagnoses / Procedures Referred By Contac t Referred To Contact [facility] [place] Diagnoses Cervicalgia Procedures CONSULT TO [facility] OFFICE/[facility]PATIENT [facility] [address] [place] [address] [place] [phone] Referral ID Status Reason Start Date Expiration Date Visits Requested Visits Authorized [id number] Authorized PCP Requested Referral 03/07/2024 03/07/2025 1 1 Specialty Diagnoses / Procedures Referred By Contac t Referred To Contact Diagnoses SHELL (obstructive sleep apnea) Procedures CONSULT TO SLEEP MEDICINE - ADULT OFFICE/OUTPATIENT [facility] 60 [place] [address] [place] [phone] Referral ID Status Reason Start Date Expiration Date Visits Requested Visits Authorized [id number] Authorized PCP Requested Referral 03/07/2024 03/07/2025 1 1 Specialty Diagnoses / Procedures Referred By Contac t Referred To Contact [facility] Diagnoses Intractable 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 aura and without status migrainosus Procedures CONSULT TO [facility] CLINIC OFFICE/OUTPATIENT [facility] 60 MINUTES Lauren Otero, DIRECTOR OF FINANCE.ASSISTANT TEACHER PRIMARY [address] [id number] Neur Headache Main [address] [place] [address] Referral ID Status Reason Start Date Expiration Date Visits Requested Visits Authorized [id number] Authorized PCP Requested Referral 12/23/2023 12/22/2024 1 1 Additional Source Comments REASON FOR VISIT (unrecogniz ed section and content) Reason Comments Cardiology Follow Up Reason Comments Established Patient 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 Patient ates she has been stable since last visit. 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 Procedures CONSULT TO [facility]AC[facility] CLINIC OFFICE/OUTPATIENT [facility] 60 MINUTES Lauren Otero, DIRECTOR OF FINANCE.ASSISTANT TEACHER PRIMARY [address] [place] [address] Neur Headache Main [address] [place] [address] Referral ID Status Reason Start Date Expiration Date V isits Requested Visits Authorized [id number] Closed PCP Requested Referral 12/23/2023 12/22/2024 1 1 Reason Comments Established Patient botox Specialty Diagnoses / Procedures Referred By Contac t Referred To Contact ADULT NEUROLOGY Diagnoses Chronic migraine without aura, intractable, without status migrainosus Procedures BOTULINUM TOXIN A PER 1 UNIT CHEMODERVATE FACIAL/TRIGEM/[place] [address] [address] [address] Neur Adult [address] [address] [place] [address] Referral ID Status Reason Start Date Expiration Date V isits Requested Visits Authorized [id number] Authorized 03/13/2024 03/13/2025 4 4 Reason Comments Epilepsy Reason Comments Cardiology Follow Up Specialty Diagnoses / Procedures Referred By Contac t Referred To Contact ADULT NEUROLOGY Diagnoses Chronic migraine without aura, intractable, without status migrainosus Procedures BOTULINUM TOXIN A PER 1 UNIT CHEMODERVATE FACIAL/TRIGEM/CERV MUSC MIGRAINE Randa Reilly MD [facility] [address] [place] [address] Reason Comments Large abdominal hematoma Reason Comments Refill Request Reason Comments PCP requested pt. be seen again for blis ters on her abdomen Reason Comments Follow Up Reason Comments Established Patient botox Chronic Migraine Specialty Diagnoses / Procedures Referred By Contac t Referred To Contact ADULT NEUROLOGY Diagnoses Chronic migraine without aura, intractable, without status migrainosus Procedures BOTULINUM TOXIN A PER 1 UNIT CHEMODERVATE FACIAL/TRIGEM/CERV MUSC MIGRAINE Randa Reilly MD [facility]/[address] [address] Phone: tel: fax: Neurology [id number] [place] [address] Phone: tel: fax: Referral ID Status Reason Start Date Expiration Date V isits Requested Visits Authorized [id number] Authorized 03/13/2024 11/14/2025 8 8 Reason Comments New Patient Specialty Diagnoses / Procedures Referred By Contac t Referred To Contact Neurology Diagnoses MCI (mild cognitive impairment) Procedures CONSULT TO NEUROLOGY OFFICE/OUTPATIENT NEW [facility] 60 MINUTES Alejandro Villar MD, PhD [address] [place] [address] Phone: tel: fax: Outpatient Referral [address] [place] [address] Referral ID Status Reason Start Date Expiration Date V isits Requested Visits Authorized [id number] Closed PCP Requested Referral 05/07/2025 11/14/2025 1 1 Source Comments (unrecognize d section and content) In the event this informatio n is protected by the Federal Confidentiality of Alcohol and Drug Abuse Patient Records regulations: The Federal rules restrict any use of the information to criminally investigate or prosecute any alcohol or drug abuse patient.[facility] Hospital[facility] the event this information is protected by the Federal Confidentiality of Alcohol and Drug Abuse Patient Records regulations: The Federal rules restrict any use of the information to criminally investigate or prosecute any alcohol or drug abuse patient.[facility] HospitalIn the event this information is protected by the Federal Confidentiality of Alcohol and Drug Abuse Patient Records regulations: The Federal rules restrict any use of the information to criminally investigate or prosecute any alcohol or drug abuse patient.[facility] HospitalIn the event this information is protected by the Federal Confidentiality of Alcohol and Drug Abuse Patient Records regulations: The Federal rules restrict any use of the information to criminally investigate or prosecute any alcohol or drug abuse patient.[facility] HospitalIn the event this information is protected by the Federal Confidentiality of Alcohol and Drug Abuse Patient Records regulations: The Federal rules restrict any use of the information to criminally investigate or prosecute any alcohol or drug abuse patient.[facility] HospitalIn the event this information is protected by the Federal Confidentiality of Alcohol and Drug Abuse Patient Records regulations: The Federal rules restrict any use of the information to criminally investigate or prosecute any alcohol or drug abuse patient.[facility] HospitalIn the event this information is protected by the Federal Confidentiality of Alcohol and Drug Abuse Patient Records regulations: The Federal rules restrict any use of the information to criminally investigate or prosecute any alcohol or drug abuse patient.[facility] HospitalIn the event this information is protected by the Federal Confidentiality of Alcohol and Drug Abuse Patient Records regulations: The Federal rules restrict any use of the information to criminally investigate or prosecute any alcohol or drug abuse patient.[facility] HospitalIn the event this information is protected by the Federal Confidentiality of Alcohol and Drug Abuse Patient Records regulations: The Federal rules restrict any use of the information to criminally investigate or prosecute any alcohol or drug abuse patient.[facility] HospitalIn the event this information is protected by the Federal Confidentiality of Alcohol and Drug Abuse Patient Records regulations: The Federal rules restrict any use of the information to criminally investigate or prosecute any alcohol or drug abuse patient.[facility] HospitalIn the event this information is protected by the Federal Confidentiality of Alcohol and Drug Abuse Patient Records regulations: The Federal rules restrict any use of the information to criminally investigate or prosecute any alcohol or drug abuse patient.[facility] HospitalIn the event this information is protected by the Federal Confidentiality of Alcohol and Drug Abuse Patient Records regulations: The Federal rules restrict any use of the information to criminally investigate or prosecute any alcohol or drug abuse patient.[facility] HospitalIn the event this information is protected by the Federal Confidentiality of Alcohol and Drug Abuse Patient Records regulations: The Federal rules restrict any use of the information to criminally investigate or prosecute any alcohol or drug abuse patient.[facility] HospitalIn the event this information is protected by the Federal Confidentiality of Alcohol and Drug Abuse Patient Records regulations: The Federal rules restrict any use of the information to criminally investigate or prosecute any alcohol or drug abuse patient.[facility] HospitalIn the event this information is protected by the Federal Confidentiality of Alcohol and Drug Abuse Patient Records regulations: The Federal rules restrict any use of the information to criminally investigate or prosecute any alcohol or drug abuse patient.[facility] HospitalIn the event this information is protected by the Federal Confidentiality of Alcohol and Drug Abuse Patient Records regulations: The Federal rules restrict any use of the information to criminally investigate or prosecute any alcohol or drug abuse patient.[facility] HospitalIn the event this information is protected by the Federal Confidentiality of Alcohol and Drug Abuse Patient Records regulations: The Federal rules restrict any use of the information to criminally investigate or prosecute any alcohol or drug abuse patient.[facility] HospitalIn the event this information is protected by the Federal Confidentiality of Alcohol and Drug Abuse Patient Records regulations: The Federal rules restrict any use of the information to criminally investigate or prosecute any alcohol or drug abuse patient.[facility] HospitalIn the event this information is protected by the Federal Confidentiality of Alcohol and Drug Abuse Patient Records regulations: The Federal rules restrict any use of the information to criminally investigate or prosecute any alcohol or drug abuse patient.[facility] HospitalIn the event this information is protected by the Federal Confidentiality of Alcohol and Drug Abuse Patient Records regulations: The Federal rules restrict any use of the information to criminally investigate or prosecute any alcohol or drug abuse patient.[facility] HospitalIn the event this information is protected by the Federal Confidentiality of Alcohol and Drug Abuse Patient Records regulations: The Federal rules restrict any use of the information to criminally investigate or prosecute any alcohol or drug abuse patient.[facility] HospitalIn the event this information is protected by the Federal Confidentiality of Alcohol and Drug Abuse Patient Records regulations: The Federal rules restrict any use of the information to criminally investigate or prosecute any alcohol or drug abuse patient.[facility] HospitalIn the event this information is protected by the Federal Confidentiality of Alcohol and Drug Abuse Patient Records regulations: The Federal rules restrict any use of the information to criminally investigate or prosecute any alcohol or drug abuse patient.[facility] Teams (unrecognized sec tion and content) Team Status: Active Member Role Status Dates Broderick Howard , DO Primary Care Provider Active Team Status: Inactive Member Role Status Dates Broderick Howard , DO Primary Care Provide r, Attending Provider Active Start: November 24, 2024 End: November 24, 2024 Team Status: Inactive Member Role Status Dates Broderick Howard DO Primary Care Provider Active Start: November 24, 2024 End: November 24, 2024 Kristel Low APRN Emergency Provider Active Start: November 24, 2024 End: November 24, 2024 Team Status: Inactive Member Role Status Dates Broderick Howard DO Primary Care Provide r, Attending Provider Active Start: November 28, 2024 End: November 28, 2024 Team Status: Inactive Member Role Status Dates Broderick Howard , DO Primary Care Provide r, Attending Provider Active Start: December 08, 2024 End: December 08, 2024 Team Status: Active Member Role Status Riccardo Howard DO Primary Care Provider Active Start: February 12, 2025 Katina Ordoñez MD Attending Provider Active Start : February 12, 2025 Team Status: Inactive Member Role Status Dates Broderick Howard , DO Primary Care Provider Active Start: February 21, 2025 End: February 21, 2025 Josefina Adams APRN [employer] Attending Provider Act lauryn Start: February 21, 2025 End: February 21, 2025 Team Status: Active Member Role Status Dates Broderick Howard DO Primary Care Provide r, Attending Provider Active Start: October 25, 2024 Team Status: Inactive Member Role Status Dates Broderick Howard , DO Primary Care Provide r, Attending Provider Active Start: October 27, 2024 End: October 27, 2024 Team Status: Inactive Member Role Status Dates Broderick Howard , DO Primary Care Provide r, Attending Provider Active Start: November 17, 2024 End: November 17, 2024 Team Status: Inactive Member Role Status Dates Broderick Howard , DO Primary Care Provide r, Attending Provider Active Start: August 30, 2024 End: August 30, 2024 Team Status: Inactive Member Role Status Riccardo Howard DO Primary Care Provider Active Start: September 07, 2024 End: September 07, 2024 Katina Ordoñez MD Attending Provider Active Start : September 07, 2024 End: September 07, 2024 Team Status: Active Member Role Status Riccardo Howard DO Primary Care Provider Active Start: August 28, 2024 Katina Ordoñez MD Attending Provider Active Start : August 28, 2024 Team Status: Inactive Member Role Status Riccardo Howard DO Primary Care Provider Active Start: August 29, 2024 End: August 29, 2024 Bertram Sanders MD Attending Provider Active S tart: August 29, 2024 End: August 29, 2024 Team Status: Inactive Member Role Status Riccardo Howard DO Primary Care Provide r, Attending Provider Active Start: August 29, 2024 End: August 29, 2024 Team Status: Inactive Member Role Status Riccardo Howard DO Primary Care Provide r, Attending Provider Active Start: June 27, 2024 End: June 27, 2024 Team Status: Active Member Role Status Riccardo Howard DO Primary Care Provider Active Start: June 29, 2024 Alejandro Villar Attending Provider Active Start: 2023 Team Status: Inactive Member Role Status Riccardo Howard DO Primary Care Provide r, Attending Provider Active Start: July 05, 2024 End: July 05, 2024 Team Status: Active Member Role Status Riccardo Howard DO Primary Care Provide r, Attending Provider Active Start: July 05, 2024 Team Status: Active Member [...] 2024 End: June 08, 2024 Team Status: Inactive Member Role Status [...] March 09, 2024 End: March 09, 2024 Air Conditioning Specialist Relationship Specialty Start Date End Date Lee Broderick Aldair, DO [address] [id number] PCP - General Internal Medicine 09/21/18 Kitty Valente MD [address] [place] [address] Primary Staff Physician Cardiology 01/31/19 Air Conditioning Specialist Relationship Specialty Start Date End Date Broderick Howard, DO [address] [id number] PCP - General Internal Medicine 09/21/18 Kitty Valente MD [address] [place] [address] Primary Staff Physician Cardiology 01/31/19 Air Conditioning Specialist Relationship Specialty Start Date End Date Broderick Howard, DO [address] [id number] PCP - General Internal Medicine 09/21/18 Kitty Valente MD [address] [place] [address] Primary Staff Physician Cardiology 01/31/19 Air Conditioning Specialist Relationship Specialty Start Date End Date Broderick Howard DO [address] [place] [address] PCP - General Internal Medicine 09/21/18 Kitty Valente MD [address] [place] [address] Primary Staff Physician Cardiology 01/31/19 Air Conditioning Specialist Relationship Specialty Start Date End Date Broderick Howard, DO [address] [id number] PCP - General Internal Medicine 09/21/18 Kitty Valente MD [address] [place] [address] Primary Staff Physician Cardiology 01/31/19 Team Status: Inactive Member Role Status Dates Broderick Howard DO Primary Care Provider, Attending Pr ovider Active Air Conditioning Specialist Relationship Specialty Start Date End Date Broderick Howard DO [address] [id number] PCP - General Internal Medicine 09/21/18 Kitty Valente MD [address] [place] [address] Primary Staff Physician Cardiology 01/31/19 Team Status: Inactive Member Role Status Dates Broderick Howard DO Primary Care Provider Active Niki Weeks MD Attending Provider Active Air Conditioning Specialist Relationship Specialty Start Date End Date Broderick Howard DO [address] [place] [address] PCP - General Internal Medicine 09/21/18 Kitty Valente MD [address] [place] [address] Primary Staff Physician Cardiology 01/31/19 Air Conditioning Specialist Relationship Specialty Start Date End Date Broderick Howard DO [address] [place] [address] PCP - General Internal Medicine 09/21/18 Kitty Valente MD [address] [place] [address] Primary Staff Physician Cardiology 01/31/19 Air Conditioning Specialist Relationship Specialty Start Date End Date Broderick Howard DO [address] [id number] PCP - General Internal Medicine 09/21/18 Kityt Valente MD [address] [place] [address] Primary Staff Physician Cardiology 01/31/19 Air Conditioning Specialist Relationship Specialty Start Date End Date Broderick Howard DO [address] [id number] PCP - General Internal Medicine 09/21/18 Kitty Valente MD [address] [place] [address] Primary Staff Physician Cardiology 01/31/19 Air Conditioning Specialist Relationship Specialty Start Date End Date Broderick Howard DO [address] [id number] PCP - General Internal Medicine 09/21/18 Kitty Valente MD [address] [place] [address] Primary Staff Physician Cardiology 01/31/19 Team Status: Inactive Member Role Status Dates Broderick Howard DO Attending Provider Active Sta rt: November 24, 2023 End: November 24, 2023 Team Status: Inactive Member Role Status Dates Broderick Howard DO Primary Care Provide r, Attending Provider Active Start: February 09, 2024 End: February 09, 2024 Air Conditioning Specialist Relationship Specialty Start Date End Date Broderick Howard DO [address] [place] [address] PCP - General Internal Medicine 09/21/18 Kitty Valente MD [address] [place] [address] Primary Staff Physician Cardiology 01/31/19 Team Status: Active Member Role Status Dates Broderick Howard DO Primary Care Provide r, Attending Provider Active Start: February 10, 2024 Team Status: Active Member Role Status Dates Broderick Howard DO Primary Care Provider Active Start: February 15, 2024 HERSON Golden Attending Provider Active St art: February 15, 2024 Air Conditioning Specialist Relationship Specialty Start Date End Date Broderick Howard DO [address] [place] [id number] PCP - General Internal Medicine 09/21/18 Kitty Valente MD [address] [place] [address] Primary Staff Physician Cardiology 01/31/19 Air Conditioning Specialist Relationship Specialty Start Date End Date Broderick Howard DO [address] [place] [id number] PCP - General Internal Medicine 09/21/18 Kitty Valente MD [address] [place] [address] Primary Staff Physician Cardiology 01/31/19 Air Conditioning Specialist Relationship Specialty Start Date End Date Broderick Howard DO [address] [place] [address] PCP - General Internal Medicine 09/21/18 Kitty Valente MD [address] [place] [address] Primary Staff Physician Cardiology 01/31/19 Air Conditioning Specialist Relationship Specialty Start Date End Date Broderick Howard MD [address] [place] [id number] PCP - General Internal Medicine 05/03/24 Air Conditioning Specialist Relationship Specialty Start Date End Date Broderick Howard MD [address] [place] [id number] PCP - General Internal Medicine 05/03/24 Air Conditioning Specialist Relationship Specialty Start Date End Date Broderick Howard DO [address] [place] [id number] PCP - General Internal Medicine 09/21/18 Kitty Valente MD [address] [place] [address] Primary Staff Physician Cardiology 01/31/19 Air Conditioning Specialist Relationship Specialty Start Date End Date Broderick Howard DO [address] [place] [id number] PCP - General Internal Medicine 09/21/18 Kitty Valente MD [address] [place] [address] Primary Staff Physician Cardiology 01/31/19 Air Conditioning Specialist Relationship Specialty Start Date End Date Broderick Howard DO [address] [place] [address] PCP - General Internal Medicine 09/21/18 Kitty Valente MD [address] [place] [address] Primary Staff Physician Cardiology 01/31/19 Team Status: Inactive Member Role Status Dates Broderick Howard DO Primary Care Provider Active Start: February 22, 2025 End: February 22, 2025 Katina Ordoñez MD Attending Provider Active Start : February 22, 2025 End: February 22, 2025 Air Conditioning Specialist Relationship Specialty Start Date End Date Broderick Howard DO [address] [place] [address] PCP - General Internal Medicine 09/21/18 Kitty Valente MD [address] [place] [address] Primary Staff Physician Cardiology 01/31/19 Team Status: Inactive Member Role Status Dates Broderick Howard DO Primary Care Provider Active Start: July 02, 2025 End: July 02, 2025 Broderick Howard DO Attending Provider Active Sta rt: July 02, 2025 End: July 02, 2025 INFORMATION SOURCE (unrecogn ized section and content) DATE CREATED AUTHOR 07/24/2022 [facility] DATE CREATED AUTHOR AUTHOR'S ORGANIZ ATION 04/23/[address] [facility] DATE CREATED AUTHOR AUTHOR'S ORGANIZ ATION 06/11/2023 [facility] DATE CREATED AUTHOR AUTHOR'S ORGANIZ ATION 06/10/2024 [facility] DATE CREATED AUTHOR AUTHOR'S ORGANIZ ATION 10/26/2024 [facility] DATE CREATED AUTHOR AUTHOR'S ORGANIZ ATION 10/28/2024 [facility] DATE CREATED AUTHOR AUTHOR'S ORGANIZ ATION 11/05/2024 [facility] DATE CREATED AUTHOR AUTHOR'S ORGANIZ ATION 11/06/2024 [facility] DATE CREATED AUTHOR AUTHOR'S ORGANIZ ATION 11/08/2024 [facility] DATE CREATED AUTHOR AUTHOR'S ORGANIZ ATION 12/15/2024 [facility] DATE CREATED AUTHOR AUTHOR'S ORGANIZ ATION 12/22/2024 [facility] DATE CREATED AUTHOR AUTHOR'S ORGANIZ ATION 04/13/2025 [facility] DATE CREATED AUTHOR AUTHOR'S ORGANIZ ATION 05/24/2025 [facility] DATE CREATED AUTHOR AUTHOR'S ORGANIZ ATION 05/31/2025 [facility] Goals (unrecognized section and content) Goals may [...] BE BASED ON THE PRIMARY CLINICAL RECORDS. [employer] [facility]. provides no warranty or guarantee of the accuracy or completeness of information in this document.
--- NOTE | 2025-07-04 14:53 | PM.CN ---
Consult Note: HPI Data of Consult Patient: known to practice within the last 3 years Requesting Physician: Tiana Brush NP Primary Care Provider: Broderick Joiner, DO Consult Narrative Reason for consult: low back and right leg pain Narrative: Cassi Rodrigez a pleasant 75 year old female presents for evaluation of low back and right leg pain, status post lumbar laminectomy 08/[address] Weeks and laminectomy/fusion With Dr Bishop 11/07 with worsening right leg pain since per pt. pain today 10 increasing with standing, walking, pushing, pulling, bending, activity. no updated advanced imaging post lumbar surgery, pt was advised not to attempt PT post op by NS. pt no longer following with NS. pt denies falls or injury. has failed tylenol, gabapentin, lyrica, and flexeril. on coumadin and has CKD cannot take NSAIDs. cc:: CC: Tiana Brush NP Review of Systems ROS Musculoskeletal Reports: back pain and extremity pain PFSH PFS Medical History (Updated 07/04/25 @ 14:57 by Tiana Brush NP) Low back pain ?M54.50 - Low back pain, unspecified (ICD-10) Osteoarthritis ?M19.90 - Unspecified osteoarthritis, unspecified site (ICD-10) Pancreatic cancer ?C25.9 - Malignant neoplasm of pancreas, unspecified (ICD-10) Seizure ?R56.9 - Unspecified convulsions (ICD-10) Acid reflux ?K21.9 - Gastro-esophageal reflux disease without esophagitis (ICD-10) Bradycardia ?R00.1 - Bradycardia, unspecified (ICD-10) Asthma ?J45.909 - Unspecified asthma, uncomplicated (ICD-10) Hypertension ?I10 - Essential (primary) hypertension (ICD-10) Surgical History S/P placement of cardiac pacemaker ?Z95.0 - Presence of cardiac pacemaker (ICD-10) 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) ?Z90.49 - Acquired absence of other specified parts of digestive tract (ICD-10) S/P brain surgery ?Z98.890 - Other specified postprocedural states (ICD-10) H/O lumbosacral spine surgery ?Z98.890 - Other specified postprocedural states (ICD-10) H/O cervical spine surgery ?Z98.890 - Other specified postprocedural states (ICD-10) Status post shoulder surgery ?Z98.890 - Other specified postprocedural states (ICD-10) Hx of cholecystectomy ?Z90.49 - Acquired absence of other specified parts of digestive tract (ICD-10) History of appendectomy ?Z90.49 - Acquired absence of other specified parts of digestive tract (ICD-10) Meds Home Medications and Allergies Home Medications ?Medication ?Instructions ?Recorded ?Confirmed ?Type amitriptyline 10 mg tablet 15 mg PO DAILY 05/04/24 06/05/24 History carvedilol 12.5 mg tablet 12.5 mg PO BID 05/04/24 06/05/24 History levetiracetam 750 mg tablet 750 mg PO BID 05/04/24 06/05/24 History losartan 25 mg tablet 25 mg PO DAILY 05/04/24 06/05/24 History omeprazole 40 mg capsule,delayed 40 mg PO DAILY 05/04/24 06/05/24 History release ondansetron 4 mg disintegrating 4 mg PO DAILY PRN nausea and 05/04/24 06/05/24 History tablet vomiting venlafaxine 150 mg 150 mg PO DAILY 05/04/24 06/05/24 History capsule,extended release 24 hr warfarin 4 mg tablet 4 mg PO DAILY 05/04/24 06/05/24 History zonisamide 100 mg capsule 300 mg PO .qhs 05/04/24 06/05/24 History Allergies Allergy/AdvReac Type Severity Reaction Status Date / Time dexamethasone Allergy Unknown Rash Verified 06/05/24 09:51 pregabalin (From Lyrica) Allergy Unknown Rash Verified 06/05/24 09:51 Exam Constitutional Documenting provider has reviewed patient's vital signs: yes Common normals: no apparent distress, oriented x3, healthy appearing, alert and well nourished General appearance: cooperative HENMT Common normals: normocephalic, hearing grossly normal bilaterally and moist oral mucous membranes Head and scalp: normocephalic Eye Common normals: PERRL Pupil: PERRL Neck & C-Spine Common normals: full ROM General: normal visual inspection Chest Common normals: inspection of chest normal Respiratory Common normals: normal respiratory effort, no retractions and no use of accessory muscles Back & Pelvis Lumbar spine/lower back: ROM limited, pain with ROM, lumbar spinal tenderness, paraspinal muscle tenderness and straight leg raise positive right; straight leg raise negative left Other: right sij positive emmy(patricks), gaenslens, thigh thrust, compression test decreased sensation to right L3,4,5,S1 pattern strength 4/5 in RLE 5/5 in LLE Extremity Common normals: normal to inspection and full ROM Neuro Common normals: oriented x3 Sensorium/orientation: alert Gait (neuro): assistive device used cane Motor exam: no movement abnormalities noted and strength abnormal Psych Common normals: mental status grossly normal, thought process normal, cooperative, affect normal, speech normal and activity/motor behavior normal Speech: normal speech Thought process: normal thought process Results Additional Findings Additional findings: If on a controlled substance or opioids, I have checked an [place] report on this patient and there are no aberrancies noted in the prescribing history.??If on a controlled substance or opioid a drug screen was completed and reviewed within the last year, and if there has not been a drug screen completed we ordered one today to monitor higher risk, state monitored pain medication use. As part of providing excellent, safe, comprehensive care, the following was completed at our patient's visit: 1. A medication reconciliation and review to ensure accurate knowledge of current/active medications, including asking our patients to inform us about any [id number] medications or herbal remedies/nutritional supplements/alternative remedies. 2. A review to specifically ensure our patients have had annual screening for screening for depression, screening for tobacco use, and screening for unhealthy alcohol use. For concerning screenings had a discussion with the patient, provided patient education, and recommended follow-up with primary care provider when appropriate. If patient noted with a risk of falling, they received education on strength, gait, and balance training to prevent future risk of falling. Portions of this note may have been carried over from the previous visit and updated as appropriate. Please note this office utilizes paper charting in addition to the electronic medical record. A list of current medications, vitals, and PMH is available there as the clinical staff outside of myself do not have access to [employer] charting during the clinic day operations. As part of providing quality comprehensive care the current medications, vitals, and PMH were reviewed in the paper chart. Assessment and Plan Assessment and Plan (1) Post laminectomy syndrome: Assessment and Plan: The patient has had over 3 months of moderate to severe low back and right leg pain with functional impairment and inadequate response to conservative care including NSAIDS (unless there are contraindication such as concurrent blood thinners), multiple oral or topical pain medications The Oswestry Disability Index was completed, and the patient scored a 51%.? The patient noted the following:?? moderate to severe pain impacting ADLs, sitting, standing, sleeping, social life, travel (2) Failed back syndrome: (3) S/P placement of cardiac pacemaker: (4) Lumbosacral radiculopathy: Plan 75 year old female with chronic low back pain worsening since prior lumbar surgery, is not able to attend PT as advised against by NS. recommend updating lumbar MRI with and without contrast to assess chronic low back and right leg pain >12 months unresponsive to heat, ice, tylenol and surgical intervention. will need chest xray and cardiac clearance due to pacemaker prior to MRI. update Cr prior to MRI. defer medication management. f/u to review imaging
== END 2025-07-04 14:12 | disposition home or self-care (01) ==
PROVIDERS: PCP Internal Medicine; Visit Provider Nurse Practitioner
DX: M96.1 Postlaminectomy syndrome, not elsewhere classified (principal); Z95.0 Presence of cardiac pacemaker; M54.16 Radiculopathy, lumbar region
CPT/HCPCS: G0463

== ENCOUNTER 2025-07-16 00:39 | Outpatient (RCR) | payer MEDICARE, SELFPAY | END 2025-08-14 15:22 | disposition home or self-care (01) | LOC: MM 00:39 | PROVIDERS: PCP Internal Medicine; Visit Provider Internal Medicine | DX: Z51.81 Encounter for therapeutic drug level monitoring (principal); Z79.01 Long term (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 of anticoagulants | CPT/HCPCS: 85610; G0463 ==

== ENCOUNTER 2025-08-02 10:06 | Outpatient (OUT) | payer MEDICARE, SELFPAY ==
--- OUTSIDE RECORDS SUMMARY | 2025-08-01 20:53 | XMS_ITS | Continuity of Care Document ---
Author Organization [facility] Address [address] [place] [address] Phone Care Team Providers Care Parachute Harness Rigger Name Role Phone Broderick Joiner DO Primary Care Provider [phone] Broderick Joiner DO Attending Provider [phone] Tiana BrushC Other Provider Leandra Gama MD Attending Provider Tiana Brush Attending Provider [phone] Care Teams Patient Care Team Team Status: Active Member Role Status Dates Broderick Joiner DO Primary Care Provider Active Visit Care Team Team Status: Inactive Member Role Status Dates Broderick Joiner DO Primary Care Provider Active Start: July 02, 2025 End: July 02, 2025 Broderick Joiner DO Attending Provider Active Sta rt: July 02, 2025 End: July 02, 2025 Visit Care Team Team Status: Active Member Role Status Dates Broderick Joiner DO Primary Care Provider Active Start: July 23, 2025 REYES Maldonado Other Provider Active Start: July 23, 2025 Leandra Gama MD Attending Provider Active Start: July 23, 2025 Visit Care Team Team Status: Inactive Member Role Status Dates Broderick Joiner DO Primary Care Provider Active Start: August 01, 2025 End: August 01, 2025 REYES Maldonado Attending Provider Active St art: August 01, 2025 End: August 01, 2025 Chief Complaint and Reason for Visit Chief Complaint Admit Date Wellness July 02, 2025 2: 50pm Z95.0 July 23, 2025 8:48am M96.1 M48.062 M54.17 August 01 7:15am Reason for Visit Admit Date Age-related osteoporosis [...] 2:50pm Screening mammogram for breast cancer [facility] 2024 2:50pm Allergies, Adverse Reactions, Alerts Allergen Type Severity Reaction Last Updated Verified Status dexamethasone Allergy Unknown Rash July 02, 2025 8:06am Y es Active pregabalin Allergy Unknown Rash July 02, 2025 8:06am Yes Active rifaximin Allergy Unknown rash July 02, 2025 8:06am Yes Active Social History Smoking Status Status Start Date End Date Date of Observa tion Never smoked tobacco (finding) November 24, 2024 2:09pm Observation Status Observation Response Date of Response Legal Sex Female (finding) Sex Assigned At Female March 22, 1 950 Family History Relationship Condition Age at Onset Recorded Date/T miguel father Malignant neoplasm of pancreas Unknown brother Malignant neoplasm of pancreas Unknown mother Malignant neoplasm of breast Unknown family member Unknown Problems Active Problems Medical Problem Onset Date Status Comments History of DVT (deep vein thrombosis) Unknown Active Bilateral lower extremity edema Unknown Active Postoperative pain after spi nal surgery Unknown Active Lumbosacral spondylosis with radiculopathy Unknown Active Gastroesophageal reflux dise ase with esophagitis without hemorrhage Unknown Active Major depression Unknown Active Major depression, recurrent Unknown Active Obstructive sleep apnea Unknown Active Greater trochanteric bursiti s of both hips Unknown Active Adhesive capsulitis of left shoulder Unknown Active Age-related osteoporosis wit hout current pathological fracture Unknown Active Swelling of right lower extremity Unknown Active Epilepsy Unknown Active Migraine headache with aura Unknown Active Low back pain Unknown Active Secondary hyperparathyroidism Unknown Active Pain of both sacroiliac joints Unknown Active Paresthesia of skin January 05, 2019 Active Pancreatic cancer Unknown Active surgery, c hemo, radiation Epilepsy seizure, generalize d, convulsive Unknown Active Osteoporosis Unknown Active CKD (chronic kidney disease) stage 4, GFR 15-29 ml/min Unknown Active Current use of comb capper anticoagulation Unknown Active Hypertensive chronic kidney disease with stage 1 through stage 4 chronic kidney disease, or unspecified chronic kidney disease Unknown Active History of lumbar surgery Unknown Active Leukopenia Unknown Active Chronic kidney disease Unknown Active Cervical spondylosis Unknown Active Arthropathy of right hip Unknown Active Post laminectomy syndrome Unknown Active Nontoxic single thyroid nodule Unknown Active History of pancreatic cancer Unknown Active GERD (gastroesophageal reflu x disease) Unknown Active Anemia of renal disease Unknown Active Irritable bowel syndrome wit h constipation Unknown Active Hypertension Unknown Active Vitamin D deficiency Unknown Active Lumbar spondylosis Unknown Active Asthma Unknown Active Lumbar stenosis with neuroge ravindra claudication Unknown Active Inactive/Resolved Problems Medical Problem Onset Date Status Comments H/O cardiac pacemaker Unknown Resolved Abdominal hematoma Unknown Resolved Medications Medication Status Dose Units Route Directions Qty Days St art Date Stop Date End Date Instructions Adherence Amlodipine 5 mg tablet Discont inued 5 MG PO Every morning February 02, 2024 1:08pm February 13, 2025 7:42a m Losartan 25 mg tablet Discont inued 25 MG PO Every morning February 02, 2024 1:09pm Decem 2023 6:58p m Venlafaxine 150 mg capsule,ext ended release 24hr Discont inued 0 .ROUTE .COMPLEX February 23, 2024 1:31pm Octob er 2023 7:38p m TAKE 1 CAPSULE BY MOUTH EVERY DAY Tramadol 50 mg tablet Discont inued 50 MG PO Twice daily as needed for pain April 13, 2024 3:16pm Decem 2023 10:00 am Carvedilol 12.5 mg tablet Discont inued 0 .ROUTE .COMPLEX May 24, 2024 6:47am Octob er 2023 9:21a m TAKE 1 TABLET BY MOUTH TWICE A DAY Ondansetron 4 mg tablet,disi ntegrating Discont inued 0 .ROUTE .COMPLEX June 06, 2024 8:49am June 08, 2025 1:13p m DISSOLVE 1 TABLET IN MOUTH EVERY 6 HOURS NEEDED FOR NAUSEA Venlafaxine 150 mg capsule,ext ended release 24hr Discont inued 0 .ROUTE .COMPLEX 90 Octobe r 2023 7:38pm February 13, 2025 7:42a m TAKE 1 CAPSULE BY MOUTH EVERY DAY Losartan 25 mg tablet Discont inued 25 MG PO Every morning 90 90 Decemb er 2023 6:58pm Decem andre 2023 3:47p m Losartan 25 mg tablet Active 25 MG PO Every morning 100 100 Decemb er 2023 3:46pm Unknown Warfarin 4 mg tablet Active 0 .ROUTE .COMPLEX 90 2024 2:07pm TAKE 1 TABLET BY MOUTH EVERY DAY DIRECTED BY [facility] 90 Unknown Doxycycline Hyclate 100 mg capsule Discont inued 100 MG PO Twice daily 2024 1:00am February 21, 2025 2:07p m Amlodipine 5 mg tablet Discont inued 0 .ROUTE .COMPLEX February 13, 2025 7:42am February 22, 2025 10:43 am TAKE 1 TABLET BY MOUTH EVERY MORNING FOR HYPERTENSION Venlafaxine 150 mg capsule,ext ended release 24hr Discont inued 0 .ROUTE .COMPLEX February 13, 2025 7:42am February 22, 2025 10:43 am TAKE 1 CAPSULE BY MOUTH EVERY DAY Ferrous Sulfate 325 mg (65 mg iron) tablet Active 0 .ROUTE .COMPLEX 45 February 27, 2025 8:41am TAKE 1 TABLET BY MOUTH EVERY 48 HOURS Unknown Carvedilol 12.5 mg tablet Active 0 .ROUTE .COMPLEX April 01, 2025 5:07pm TAKE 1 TABLET BY MOUTH TWICE A DAY Unknown Ergocalcife rol (Vitamin D2) 1,250 mcg (50,000 unit) capsule Active 0 .ROUTE .COMPLEX April 02, 2025 9:33am TAKE 1 CAPSULE BY MOUTH ONCE EVERY WEEK Unknown Ondansetron 4 mg tablet,disi ntegrating Active 0 .ROUTE .COMPLEX June 08, 2025 1:13pm DISSOLVE 1 TABLET IN MOUTH EVERY 6 HOURS NEEDED FOR NAUSEA Unknown Carvedilol 12.5 mg tablet Discont inued 12.5 MG PO Twice daily 2022 12:00a m February 08, 2024 11:21 am Amlodipine 5 mg tablet Discont inued 5 MG PO Every morning 2022 12:00a m February 02, 2024 1:08p m Amitriptyli ne 10 mg tablet Discont inued 15 MG PO Daily at bedtime 2022 12:00a m June 08, 2024 2:32p m Warfarin 2 mg Tablet Discont inued 2 MG PO every Wednesday, Wednesday, Wednesday, and Wednesday 12:00a m February 08, 2024 11:26 am Omeprazole 40 mg capsule,del ayed release(DR/ EC) Discont inued 40 MG PO Every morning 2022 11:46a m Octob er 2023 11:05 am Losartan 25 mg tablet Discont inued 25 MG PO Every morning 2022 12:00a m February 02, 2024 1:09p m Venlafaxine 150 mg capsule,ext ended release 24hr Discont inued 150 MG PO Every morning 2022 12:00a m February 08, 2024 11:23 am Acetaminoph en (Tylenol Extra Strength) 500 mg Capsule Discont inued 1000 MG PO Q6H as needed for Pain 2022 12:00a m February 08, 2024 11:20 am Enoxaparin (Lovenox) 100 mg/mL Syringe Discont inued 90 MG SUBCUT Daily 2022 12:00a m June 08, 2024 2:29p m Tizanidine 4 mg Tablet Discont inued 4 MG PO Twice daily as needed for Muscle Spasm 28 14 2022 12:00a m February 08, 2024 11:24 am Hydrocodone -Acetaminop hen 5-325 mg Tablet Discont inued 1 TAB PO Q6H as needed for Pain Scale 1 - 5 56 14 2022February 08, 2024 11:22 am Amitriptyli ne 10 mg tablet Discont inued 25 MG PO Daily at bedtime June 08, 2024 2:28pm Octob er 2023 9:18a m Linaclotide (Linzess) 72 mcg capsule Discont inued 72 MCG PO Daily 2024 1:00am February 22, 2025 10:43 am Linaclotide (Linzess) 72 mcg capsule Active 72 MCG PO Daily as needed February 22, 2025 10:43a m Unknown Venlafaxine 75 mg capsule,ext ended release 24hr Discont inued 75 MG PO Daily Februa 2020 1:00am Amina chino 2022 11:47 am Omeprazole 40 mg capsule,del ayed release(DR/ EC) Discont inued 40 MG PO Daily Februa 2020 1:00am Febru harriett 2020 11:13 am Tramadol 50 mg tablet Discont inued 50 MG PO Daily Februa 2020 1:00am Amina marino 2022 11:48 am Warfarin 4 mg tablet Discont inued 4 MG PO every Wednesday, and Wednesday Februa 2020 1:00am Jan2024 2:07p m Zonisamide 100 mg capsule Discont inued 200 MG PO Daily Februa 2020 1:00am February 09, 2024 3:12p m Amlodipine 10 mg tablet Discont inued 10 MG PO Daily Februa 2020 1:00[facility] 2022 11:41 am Naproxen Sodium (Aleve) 220 mg Tablet Discont inued 220 MG PO Twice daily as needed for Pain Februa 2020 1:00am [facility] 11:48 am Hydralazine 50 mg tablet Discont inued 50 MG PO As Directed Februa 2020 1:00am [facility] 11:41 am Levetiracet am 750 mg tablet Discont inued 750 MG PO Twice daily Februa 2020 1:00am February 08, 2024 11:22 am Ondansetron 4 mg tablet,disi ntegrating Discont inued 4 MG PO Q8H as needed for Nausea Februa 2020 1:00am June 06, 2024 8:49a m Melatonin 5 mg Tablet Discont inued 5 MG PO Bedtime as needed for Insomnia Februa 2020 1:00am Amina marino 2022 11:48 am Omeprazole 40 mg capsule,del ayed release(DR/ EC) Discont inued 40 MG PO Twice daily 60 Februa 2020 1:00am Amina marino 2022 11:46 am Zonisamide 100 mg capsule Active 200 MG PO Daily February 09, 2024 3:12pm Unknown Amlodipine 5 mg tablet Discont inued 5 MG PO Daily February 08, 2024 12:00a m June 08, 2024 2:29p m Carvedilol 12.5 mg tablet Discont inued 12.5 MG PO Twice daily February 08, 2024 12:00a m May 24, 2024 6:47a m Hydrocodone -Acetaminop hen 5-325 mg tablet Discont inued 1 TAB PO Every 8 hours as needed February 08, 2024 12:00a m March 29, 2024 2:00p m Levetiracet am 750 mg tablet Active 750 MG PO Every 12 hours February 08, 2024 12:00a m Unknown Venlafaxine 150 mg capsule,ext ended release 24hr Discont inued 150 MG PO Daily February 08, 2024 12:00a m February 23, 2024 1:31p m Venlafaxine 75 mg tablet Discont inued 75 MG PO Daily February 08, 2024 12:00a m June 08, 2024 2:30p m Mupirocin 2 % ointment Discont inued 1 APPLIC TOPICA L Twice daily February 08, 2024 12:00a m June 08, 2024 2:30p m Linaclotide 72 mcg capsule Discont inued 72 MCG PO Daily February 08, 2024 12:00a m June 08, 2024 2:32p m Linaclotide 72 mcg capsule Discont inued 72 MCG PO Daily as needed June 08, 2024 2:32pm Octob er 2023 11:05 am Doxycycline Monohydrate 100 mg capsule Discont inued 100 MG PO Twice daily 03 09February 21, 2025 12:00a m Augus t 2024 2:58p m Amitriptyli ne 50 mg tablet Active 50 MG PO Daily at bedtime Augobe r 2023 12:00a m Take 1 tablet orally at bedtime. Unknown Linaclotide 72 mcg capsule Discont inued 72 MCG PO Daily 30 [facility] r 2023 11:04a m Octob er 2023 9:21a m Omeprazole 40 mg capsule,del ayed release(DR/ EC) Active 40 MG PO [facility] 11:05a m Take 1 capsule orally 30 minutes before morning meal. Unknown Tramadol 50 mg tablet Discont inued 50 MG PO Twice daily as needed for pain March 29, 2024 12:00a m April 13, 2024 3:17p m Cyclobenzap rine 5 mg tablet Discont inued 5 MG PO Twice daily June 27, 2024 12:00a m Octob er 2023 10:53 am Cyclobenzap rine 5 mg tablet Discont inued 5 MG PO Twice daily as needed [facility] r 2023 10:52a m Dece andre 2023 9:59a m Carvedilol 12.5 mg tablet Discont inued 12.5 MG PO Twice daily [facility] r 2023 9:19am April 01, 2025 5:13p m Linaclotide 72 mcg capsule Discont inued 72 MCG PO Daily as needed [facility] r 2023 9:21am Dece andre 2023 10:00 am Ferrous Sulfate 325 mg (65 mg iron) tablet Discont inued 325 MG PO Every 48 hours [facility] 12:00a m February 27, 2025 8:42a m Ergocalcife rol (Vitamin D2) 1,250 mcg (50,000 unit) capsule Discont inued 1250 MCG PO every week [facility] 12:00a m April 02, 2025 9:33a m Amlodipine 5 mg tablet Active 5 MG PO Daily February 22, 2025 10:42a m Unknown Venlafaxine 150 mg capsule,ext ended release 24hr Active 150 MG PO Daily February 22, 2025 10:43a m Unknown Furosemide (Lasix) 20 mg tablet Active 20 MG PO Daily February 22, 2025 12:00a m Unknown Cephalexin 500 mg capsule Discont inued 500 MG PO Three times daily 2024 1:00am Janua ry 2024 2:56p m Immunizations Immunization Event Date Not Given Reason Dose Number Insurance Attorney Lot Number Vaccine Information Statement (VIS) Detail Administration Location COVID-19 mRNA-1273 (Moderna) December 17, 2020 COVID-19 mRNA-1273 (Moderna) January 14, 2021 COVID-19 mRNA-1273 (Moderna) September 10, 2021 Fluzone TIV High-Dose 65YR+ August 29, 2024 [id number] [facility] influenza, unspecified formulation September 07, 2018 influenza, unspecified formulation August 23, 2019 influenza, unspecified formulation September 03, 2020 influenza, unspecified formulation July 30, 2021 influenza, unspecified formulation July 30, 2022 Pneumococcal Polysacc. Vaccine, 23 valent February 04, 2018 Procedures Procedure Date Performed Status MR lumbar spine wo con August 01, 2025 7:17 am completed Relevant Diagnostic Tests and/or Laboratory Data Laboratory Results Test Collection Date/Time Result Date/Time Result Interpretation Reference Range Result Comment Performing Site Creatinine August 01, 2025 7:28am August 01, 2025 8:05am 1.91 mg/dL Above high normal 0.60-1.20 [facility] [id number] [address] [place], [place] [id number] Estimated GFR (CKD-EPI) August 01, 2025 7:28am August 01, 2025 8:05am 27.025 mL/Min [facility] [id number] [address] [place], [place] [id number] Pharmacy Creatinine Clearance (Chem August 01, 2025 7:28am August 01, 2025 8:05am 25.93 [facility] [id number] [address] [place] [address] Bedside Creatinine August 01, 2025 7:36am August 01, 2025 7:38am 1.9 mg/dL Above high normal 0.6-1.3 ER/ESD physician is notified/sh own all ISTAT results.Cri tical values may be confirmed by laboratory testing ifdeemed necessary by ER attending doctor. [facility] [id number] [address] [facility] [address] Bedside Estimated GFR (eGFR) August 01, 2025 7:36am August 01, 2025 7:38am 27.197 [facility] [id number] [address] [place] [address] Diagnostic Imaging Reports Author Arnel Simon [facility] Report Date/Time August 01, 2025 3:20pm [facility] [place] [address] [place], [place] [id number] MRI Report Signed Patient: Cassi Rodrigez MR#: [id number] : 1950 Acct:[id number] Age/Sex: 75 / F ADM Date: 5 Loc: MR Room: Type: [facility] Attending Dr: Tiana CHAMBERS Copies to: REYES Maldonado~ Ordering Provider: REYES Maldonado Date of Service: 08/01/25 MR/MR lumbar spine wo con: M96.1, M48.062, M54.17 MR lumbar spine wo con 08/01/2025 7:58 AM SIGNS AND SYMPTOMS: M96.1, M48.062, M54.17 PROTOCOL: Multiplanar multisequence MR images of the lumbar spine without IV contrast COMPARISON: 05/30/2024 FINDINGS: The bones of the lumbar spine are in anatomic alignment. There is preservation of vertebral body. There is intervertebral fusion at L5-S1 with posterior decompression at L4-5. There is severe disc height loss at L1-L2 and L2-L3 with mild disc height loss at L3-L4 and L4-L5. There is Modic type I endplate edema at T12-L1 and L4-5. There is Modic type II fatty endplate degenerative change with Modic type I endplate edema at L1-L2. The conus terminates at the inferior endplate of the L1 vertebral body level. No epidural or paraspinous fluid collection is appreciated. There is right-sided renal cortical atrophy which is chronic in nature. At T12-L1: There is a normal disc, central canal, and neural foramen. At L1-L2: There is a broad-based disc bulge with endplate osteophyte formation. There is facet hypertrophy and ligamentum flavum thickening. There is mild spinal canal stenosis with mild bilateral neural foraminal narrowing. This is unchanged. At L2-L3: There is a circumferential disc bulge with facet hypertrophy, ligamentum flavum thickening, and endplate osteophyte formation contributing to moderate spinal canal narrowing with moderate left and mild right neural foraminal narrowing. This is unchanged. At L3-L4: There is a circumferential disc bulge with facet hypertrophy and ligamentum flavum thickening. There is moderate spinal canal stenosis with moderate right and mild left neural foraminal stenosis similar to the prior exam. At L4-L5: There is a circumferential disc bulge with facet hypertrophy and posterior decompression. There is moderate spinal canal stenosis with moderate to severe left and severe right neural foraminal narrowing. There is mass effect on the exiting right L4 nerve roots. This is slightly worse when compared to the prior study. At L5-S1: There is a broad-based disc bulge with facet hypertrophy. No significant spinal canal narrowing. There is mild right neural foraminal narrowing. MR/MR lumbar spine wo con IMPRESSION: At L4-L5: There is a circumferential disc bulge with facet hypertrophy and posterior decompression. There is moderate spinal canal stenosis with moderate to severe left and severe right neural foraminal narrowing. There is mass effect on the exiting right L4 nerve roots. This is slightly worse when compared to the prior study. Intervertebral fusion is noted at L5-S1. Lesser degrees of degenerative changes are redemonstrated throughout the lumbar spine without significant interval progression. Impression dictated by: Arnel Simon M.D. 08/01/2025 3:20 PM Dictation Location: [place] [address] Transcribed By: [facility] 08/01/25 1520 Dictated By: Arnel Simon II, MD 08/01/25 1508 Signed By: <Electronically signed by Arnel Simon II, MD in OV> 08/01/25 1520 Vital Signs Vital Reading Result Reference Range Collection Date/Time Height 62 [in_i] July 02 2:58pm Weight 86.18 kg July 02 2:58pm Heart Rate 82 /min 60-100 July 02 2:58pm Respiratory rate 12 /min -June 2:58pm BP Systolic 117 mm[Hg] 100-140 July 02 2:58pm BP Diastolic 70 mm[Hg] 60-100 July 02 2:58pm BMI (Body Mass Index) 34.7 kg/m2 July 02, 2025 2:58pm Height 62 [in_i] August 01, 2025 7:23am Weight 86.18 kg August 01, 2025 7:23am Advance Directives Advance Directive Response Recorded Date/ Time Advance Directives No September 15, 2019 12:04pm Insurance Providers Guarantor Cassi Rodrigez Address [address] [place] [phone] Contact Info. Home Phone: Payer Policy Id Subscriber's Name Subscriber Id Erika ctive Date Expiration Date Cate PATINO/MIESHA [id number] Cassi Rodrigez [id number] Medicare [id number] Cassi Rodrigez [id number] [employer] [facility] [id number] Cassi Elia [id number] [employer] [facility] PFFS [id number] Cassi Rodrigez [id number] [employer] Claims [id number] Cassi Rodrigez [id number] Encounters Encounter Location(s) Arrival/Admit Date Discharge/Depart Date Provider(s) Departed Physician/Prov ider Office Visit -[facility] July 02, 2025 2:50pm July 02, 2025 3:57pm Broderick Joiner DO Non-patient / Non-visit -[facility] July 23, 2025 8:48am Chris Gama Departed Clinical -[facility] August 01, 2025 7:15am August 01, 2025 7:16am REYES Maldonado Recent Diagnosis Onset Date Admit Date Age-related osteoporosis wit hout current pathological fracture Unknown July 02, 2025 2:50pm Chronic kidney disease Unknown July 022024 2:50pm Gastroesophageal reflux dise ase with esophagitis without hemorrhage Unknown July 02, 2025 2:50pm History of pancreatic cancer Unknown Jun 2:50pm Hypertension Unknown July 02 2:50pm Lumbar stenosis with neurogenic claudication Unk nown July 02, 2025 2:50pm Major depression Unknown July 02 2:50pm Medicare annual wellness visit, subsequent Unkno wn July 02, 2025 2:50pm Screening mammogram for breast cancer Unknown July 02, 2025 2:50pm Assessments Diagnosis Onset Date Resolution Status Admit Date [...] david st cancer noneactive July 02 2:50pm Plan of Treatment Author Broderick Joiner [facility] Authored July 02, 2025 3: 57pm I have instructed this patie nt on the recommended lifestyle changes, which includes a low fat, high fiber diet along with a regular exercise routine. I have also reviewed the recommended age-appropriate preventive testing for this patient. I have also reviewed the recommended vaccines for their age and risk factors. I have instructed this patient to consume a healthy, low-fat, low-salt diet. I have also encouraged them to continue exercise with weight loss to achieve/maintain a BMI < 30. I have instructed this patient on the correct procedure for obtaining home BP measurements: - rest for 5 minutes w/o talking. - positioned w/ feet on floor and arms supported. - average best 2/3 readings w/ goal < 135/85. - update office w/ home readings in 2 weeks. Continue Carvedilol and Amlodipine without interruption I instructed this patient on the benefits of adequate control of hypertension and diabetes, if appropriate. I have also instructed them to avoid use of NSAIDs due to the adverse effects on renal function. I instructed them on adequate fluid balance and to consume at least 48 oz of fluids daily. I also instructed them to monitor for an unexplained increase in weight and lower extremity edema. They have been instructed to notify the office for any changes or concerns. f/u Nephrology I have instructed this patient to avoid bending, twisting or lifting. I have also instructed on use of intermittent heat and ice as needed. They may schedule a massage or gentle manipulation. I instructed them on the safe use of Tylenol, Lidocaine and stretching exercises. I informed them of alternative modes of treatment for severe pain, which may include referral to physical therapy or pain management. lumbar fusion 07/2023 and 10/2024 w/ significant improvement in symptoms for several weeks after which her pain returned. Recommend referral back to Pain management. I have instructed this patient to avoid lying flat after eating. I have also recommended to avoid eating 2 hours prior to bedtime. They were also informed that smaller, frequent meals may be better tolerated. I have discussed additional treatment options for persistent symptoms, which includes: weight loss, H2 blockers and PPI. I have also instructed them to notify the office with any pain or difficulty swallowing. Continue Omeprazole without interruption Instructed to continue calcium and vitamin D supplements. Instructed on weight bearing exercises. Monitor w/ DEXA qoy. No s/s recurrence f/u Oncology Instructed on a healthy diet and exercise routine. Instructed to continue medical treatment w/o interruption. Instructed to avoid abrupt d/c of medication due to w/d symptoms. I have instructed this patient on monthly SBE and recommended yearly mammograms. Future Tests Future scheduled test information is unavailable Pending Tests Test Name Ordered Date Scheduled Date MM screening mammo BI w/CAD July 02, 2025 3: 57pm Future Visits Future appointment information is unavailable Referrals to Other Providers Referral information is unavailable Future Procedures Procedure Name Ordered Date Scheduled Date Disability Placard July 02, 2025 3:44pm Future Medications Future medication information is unavailable Patient Instructions Patient instructions are unavailable
--- NOTE | 2025-08-02 10:08 | MM_ITS ---
Patient Name: BREANNA MCCORMICK MR#: [id number] : 1950 Exam Date: 08/02/2025 Ordering Doctor: DR RALPH HOWARD D.O. RADIOLOGY REPORT PROCEDURE: MM TOMOSYNTHESIS SCREENING BI COMPARISON: MM TOMOSYNTHESIS SCREENING BI, 08/01/2024. MM TOMOSYNTHESIS SCREENING BI, 07/30/2023. MG MAMM SCREEN 3D FAVIOLA CAD, 07/29/2022. MG MAMM FAVIOLA SCRN W CAD DIG, 09/12/2013. INDICATIONS: Screening Calculator Name NCI Breast Cancer Risk Assessment Tool 5 Year Breast Cancer Risk 3.80% Lifetime Breast Cancer Risk 8.10% Personal Breast Cancer No Personal Ovarian Cancer No Treatments whipple procedure Family Cancers Sister with breast cancer at age 42; Father with liver cancer at age 57; Brother with pancreatic cancer at age 64. LOCATION: [facility] BREAST COMPOSITION: There are scattered areas of fibroglandular density. FINDINGS: RIGHT BREAST: No significant suspicious finding. LEFT BREAST: No significant suspicious finding. DIAGNOSTIC CATEGORY 1--NEGATIVE. RECOMMENDATIONS: ROUTINE MAMMOGRAM AND CLINICAL EVALUATION IN 12 MONTHS. Dictated by: Santos Bajwa MD on 08/02/2025 at 13:21 Approved by: Santos Bajwa MD on 08/02/2025 at 13:27
--- OUTSIDE RECORDS SUMMARY | 2025-08-02 10:09 | XMS_ITS | Encounter Summary ---
Author Organization [facility] Address [address] [place] [address] Care Team Providers Care Pet Trainer Name Role Phone Broderick Joiner DO Primary Care Provider [phone] Kitty Valente MD Unavailable Un available Source Comments In the event this information is protected by the Federal Confidentiality of Alcohol and Drug AbusePatient Records regulations: The Federal rules restrict any use of the information to criminally investigate or prosecute any alcohol or drug abuse patient.[facility] Encounter Details Date Type Department Care Team (Late st Contact Info) Description 03/01/2020 Patient Msg Neurology [address] [place] [address] [place] [address] [address] [place] [address] Appointment Cancellation Request Social History Tobacco Use [...] Care Team (Late st Contact Info) Description 10/30/2025 10:30 AM EST Office Visit Neurology [address] [place] [address] [place] [address] [address] [place] [address] Botox 01/09/2026 11:00 AM EST Office Visit Neurology [address] [place] [address] Ross Villar MD, PhD [address] [place] [address] annaul follow up documented as of this encounter Visit Diagnoses Not on filedocumented in this encounter Care Teams Pet Trainer Relationship Specialty Start Date End Date Broderick Joiner DO [address] [place] [address] PCP - General Internal Medicine 09/21/18 Kitty Valente MD [address] [place] [address] Primary Staff Physician Cardiology 01/31/19 documented as of this encounter
--- OUTSIDE RECORDS SUMMARY | 2025-08-02 10:09 | XMS_ITS | Encounter Summary ---
Author Organization [facility] Address [address] [place] [address] Care Team Providers Care Tricot Knitting Machine Operator Name Role Phone Leo Fierro Primary Care Provider [phone] Shashi Lisa DO Primary Care Provider Broderick Joiner DO Primary Care Provider [phone] Kitty Valente MD Unavailable Un available Kitty Valente MD Unavailable Un available Source Comments In the event this information is protected by the Federal Confidentiality of Alcohol and Drug AbusePatient Records regulations: The Federal rules restrict any use of the information to criminally investigate or prosecute any alcohol or drug abuse patient.[facility] Encounter Details Date Type Department Care Team (Late st Contact Info) Description 02/19/2011 [facility] H071 [address] [phone] [place] [address] [address] [place] [phone] Social History Tobacco Use Types Packs/Day Years [...] 10/30/2025 10:30 AM EST Office Visit Neurology [address] [place] [address] [place] [address] [address] [place] [address] Botox 01/09/2026 11:00 AM EST Office Visit Neurology [address] [facility] [place] [address] Ross Villar MD, PhD [address] [place], [place] [address] annaul follow up documented as of this encounter Visit Diagnoses Not on filedocumented in this encounter Care Teams Tricot Knitting Machine Operator Relationship Specialty Start Date End Date Leo Fierro [address] [place] [address] [place] [address] PCP - General Family Medicine 01/23/11 11/14/16 Shashi Lisa DO [address] [place] [address] PCP - General Family Medicine 11/15/16 09/20/18 Broderick Joiner DO [address] [place] [address] PCP - General Internal Medicine 09/21/18 Kitty Valente MD [address] [place] [address] Primary Staff Physician Cardiology 01/31/1901/31 Kitty Valente MD [address] [place] [address] Primary Staff Physician Cardiology 01/31/19 documented as of this encounter
--- OUTSIDE RECORDS SUMMARY | 2025-08-02 10:09 | XMS_ITS | Clinical Summary ---
Author Organization [facility] Address [address] [place] [address] Care Team Providers Care Real Estate Manager Name Role Phone Broderick Joiner Primary Care Provider [phone] Allergies Active Allergy Reactions Criticality Noted Date [...] 25 Active ergocalciferol (Vitamin D2) 1.25 MG (67766 UT) capsule TAKE 1 CAPSULE BY MOUTH [...] 07/30/2022, Additional history exists Insurance Care Teams Real Estate Manager Relationship Specialty Start Date End Date Broderick Joiner DO PCP - General Internal Medicine 05/03/24
--- OUTSIDE RECORDS SUMMARY | 2025-08-02 10:09 | XMS_ITS ---
Author Organization [facility] Address [address] [place] [address] Care Team Providers Care Bottled Beverage Inspector Name Role Phone Broderick Joiner Primary Care Provider [phone] Kitty Valente MD Unavailable Un available Active [...]
--- OUTSIDE RECORDS SUMMARY | 2025-08-02 10:09 | XMS_ITS | Encounter Summary ---
Author Organization [facility] Address [address] [place] [address] Phone Care Team Providers Care Silver Holloware Assembler Name Role Phone Unavailable Primary Care Provider Unavailabl e Encounter Details Date Type Department Care Team (Late st Contact Info) Description 04/29/2023 Orders Only [facility] [address] [place] [address] Conversion, Onbase Social History Tobacco Use Types [...]
--- OUTSIDE RECORDS SUMMARY | 2025-08-02 10:09 | XMS_ITS | Encounter Summary ---
Author Organization [facility] Address [address] [place] [address] Care Team Providers Care Electrical Installation Supervisor Name Role Phone RhysBroderick Primary Care Provider [phone] Kitty Valente MD Unavailable Un available Source Comments In the event this information is protected by the Federal Confidentiality of Alcohol and Drug AbusePatient Records regulations: The Federal rules restrict any use of the information to criminally investigate or prosecute any alcohol or drug abuse patient.[facility] Encounter Details Date Type Department Care Team (Late st Contact Info) Description 09/15/2021 Patient Msg Cardiology [address] [phone] ProviderLorrie missed remote transmission Social History Tobacco [...] 10/30/2025 10:30 AM EST Office Visit Neurology [address] [place] [address] [place] [address] [address]/[facility] [place] [address] Botox 01/09/2026 11:00 AM EST Office Visit Neurology [address] [place] [address] Ross Villar MD, PhD [address] [place] [address] annaul follow up documented as of this encounter Visit Diagnoses Not on filedocumented in this encounter Care Teams Electrical Installation Supervisor Relationship Specialty Start Date End Date Broderick Joiner DO [address] [place] [address] PCP - General Internal Medicine 09/21/18 Kitty Valente MD [address] [place] [address] Primary Staff Physician Cardiology 01/31/19 documented as of this encounter
--- OUTSIDE RECORDS SUMMARY | 2025-08-02 10:09 | XMS_ITS | Encounter Summary ---
Author Organization [facility] Address [address] [place] [address] Care Team Providers Care Dispatcher Bus And Trolley Name Role Phone Broderick Joiner DO Primary Care Provider Kitty Valente MD Unavailable Un available Source Comments In the event this information is protected by the Federal Confidentiality of Alcohol and Drug AbusePatient Records regulations: The Federal rules restrict any use of the information to criminally investigate or prosecute any alcohol or drug abuse patient.[facility] Encounter Details Date Type Department Care Team (Late st Contact Info) Description 01/03/2025 Patient Msg Neurology [address] [place] [address] [place] [address] [place] [address] Appointment Request Social History Tobacco Use Types [...] is lower risk 4 09/08/2023 Data from: https://www.neighborhoodatlas.[facility]/. Last address used for calculation [...] AM Vita Elizondo (Rn) (Hist), RN documented as of this [...] 10/30/2025 10:30 AM EST Office Visit Neurology [address] [place] [address] [place] [address] [address]/[facility] [place] [address] Botox 01/09/2026 11:00 AM EST Office Visit Neurology [address] [place] [address] Ross Villar MD, PhD [address] [place] [address] annaul follow up documented as of this encounter Goals Goal Patient Goal Type Associated Problems Recent Progress Patient-Stated? Author Blood Pressure < 130/80 Blood Pressure 124/74( 025 9:45 AM EDT) No Kitty Valente MD documented as of this encounter Visit Diagnoses Not on filedocumented in this encounter Care Teams Dispatcher Bus And Trolley Relationship Specialty Start Date End Date Broderick Joiner DO [address] [place] [address] PCP - General Internal Medicine 09/21/18 Kitty Valente MD [address] [place] [address] Primary Staff Physician Cardiology 01/31/19 documented as of this encounter
--- OUTSIDE RECORDS SUMMARY | 2025-08-02 10:09 | XMS_ITS | Encounter Summary ---
Author Organization [facility] Address [address] [place] [address] Care Team Providers Care Tight Barrel Inspector Name Role Phone RhysBroderick Primary Care Provider [phone] Kitty Valente MD Unavailable Un available Source Comments In the event this information is protected by the Federal Confidentiality of Alcohol and Drug AbusePatient Records regulations: The Federal rules restrict any use of the information to criminally investigate or prosecute any alcohol or drug abuse patient.[facility] Encounter Details Date Type Department Care Team (Late st Contact Info) Description 11/03/2024 Patient Msg Cardiology [address] [phone] Provider, Ccf Remote Monitoring Social History Tobacco [...] is lower risk 4 09/08/2023 Data from: https://www.neighborhoodatlas.medicine.[facility].edu/. Last address used for calculation [...] 10/30/2025 10:30 AM EST Office Visit Neurology [address] [place] [address] [place] [address] [address]/[facility] [place] [address] Botox 01/09/2026 11:00 AM EST Office Visit Neurology [address] [facility] [place] [phone] Ross Villar MD, PhD [address] [place] [address] annaul follow up documented as of this encounter Goals Goal Patient Goal Type Associated Problems Recent Progress Patient-Stated? Author Blood Pressure < 130/80 Blood Pressure 124/74( 025 9:45 AM EDT) No Kitty Valente MD documented as of this encounter Visit Diagnoses Not on filedocumented in this encounter Care Teams Tight Barrel Inspector Relationship Specialty Start Date End Date Broderick Joiner DO [address] [place] [address] PCP - General Internal Medicine 09/21/18 Kitty Valente MD [address] [place] [address] Primary Staff Physician Cardiology 01/31/19 documented as of this encounter
--- OUTSIDE RECORDS SUMMARY | 2025-08-02 10:09 | XMS_ITS | Encounter Summary ---
Author Organization [facility] Address [address] [place] [address] Care Team Providers Care Tailer Out Name Role Phone Broderick Joiner DO Primary Care Provider [phone] Kitty Valente MD Unavailable Un available Source Comments In the event this information is protected by the Federal Confidentiality of Alcohol and Drug AbusePatient Records regulations: The Federal rules restrict any use of the information to criminally investigate or prosecute any alcohol or drug abuse patient.[facility] Encounter Details Date Type Department Care Team (Late st Contact Info) Description 07/25/2025 Orders Only [place] [address] [place] [address] [place], [place] [phone] Social History Tobacco Use Types Packs/Day Years Used Date Smoking Tobacco: Never Smokeless Tobacco: Never Alcohol Use Standard Drinks/Week Comments No 0 (1 standard drink = 0.6 oz pur e alcohol) PHQ-2 Answer Date Recorded PHQ-2 score 1 07/12/2025 Area Deprivation Index Answer Date Chucky rded National Score (1-100), lower number is lower ri sk 63 09/08/2023 State Score (1-10), lower number is lower risk 4 09/08/2023 Data from: https://www.neighborhoodatlas.[facility]/. Last address used for calculation [address] 09/08/2023 Comments No Sex and [...] ElizondoRn) (Hist), RN * Do you have serious [...] Assessment Author Yes 08/19/2015 11:02 AM Vita ElizondoRn) (Hist), RN documented as of this encounter Mental Status * Because of a physical, mental, or emotional condition, do you have serious difficulty concentrating, remembering, or making decisions? Answer Entry Date Author No 08/19/2015 11:02 AM Vita ElizondoRn) (Hist), RN documented in this encounter Plan of Treatment Upcoming Encounters Date Type Department Care Team (Late st Contact Info) Description 10/30/2025 10:30 AM EST Office Visit Neurology [address] [place] [address] [place] [address] [address]/[facility] [place] [address] Botox 01/09/2026 11:00 AM EST Office Visit Neurology [address] [place] [phone] Ross Villar MD, PhD [address] [facility] [place] [place] [address] annaul follow up Pending Results Name Type Priority Associated Diagnoses Date /Time CARDIAC IMPLANTABLE DEVICE CHECK REMOTE PACEART Routine 07/25/2025 2 :11 PM EDT documented as of this encounter Goals Goal Patient Goal Type Associated Problems Recent Progress Patient-Stated? Author Blood Pressure < 130/80 Blood Pressure 124/74( 025 9:45 AM EDT) No Kitty Valente MD documented as of this encounter Procedures Procedure Name Priority Date/Time Associated Diagnosis Comments CARDIAC IMPLANTABLE DEVICE CHECK REMOTE Routine 07/25/2025 2:11 PM EDT Procedure Note - Kitty Valente MD - 07/25/2025 2:11 PM EDTThis note is in progress. Normal Remote: No Events * Normal Device Function * Alerts or events: None * Battery: OK, 7 mos * Sensing, impedance and thresholds reviewed * Programmed parameters reviewed * Presenting rhythm: AP/VS * Heart Rate Histograms reviewed * No significant changes noted * AP 99.9%, MARKETING PRODUCTION MANAGER <0.1%. NOTE TO PROVIDERS: Cardiac Implanted Devices Flowsheets contain detailedProgramming and Evaluation data. Full Docket/PDF found below under Scanned Documents . documented in this encounter Visit Diagnoses Not on filedocumented in this encounter Care Teams Tailer Out Relationship Specialty Start Date End Date Broderick Joiner DO [address] [place] [address] PCP - General Internal Medicine 09/21/18 Kitty Valente MD [address] [place] [place] [address] Primary Staff Physician Cardiology 01/31/19 documented as of this encounter
--- OUTSIDE RECORDS SUMMARY | 2025-08-02 10:09 | XMS_ITS | Encounter Summary ---
Author Organization [facility] Address [address] [place] [address] Care Team Providers Care Leather Production Worker Name Role Phone RhysBroderick Primary Care Provider [phone] Kitty Valente MD Unavailable Un available Source Comments In the event this information is protected by the Federal Confidentiality of Alcohol and Drug AbusePatient Records regulations: The Federal rules restrict any use of the information to criminally investigate or prosecute any alcohol or drug abuse patient.[facility] Encounter Details Date Type Department Care Team (Late st Contact Info) Description 08/26/2022 Patient Msg Cardiology [address] [phone] ProviderLorrie missed remote 08/21/22 Social History Tobacco [...] N ot on file 10/20/2020 Data from: https://www.neighborhoodatlas.medicine.[facility]/. Last address used for calculation Not on [...] 11:02 AM Vita Elizondo) (Hist), RN * Are you blind or [...] 10/30/2025 10:30 AM EST Office Visit Neurology [address] [place] [address] [place] [address] [address] [place] [address] Botox 01/09/2026 11:00 AM EST Office Visit Neurology [address] [place] [phone] Ross Villar MD, PhD [address] [place] [address] annaul follow up documented as of this encounter Visit Diagnoses Not on filedocumented in this encounter Care Teams Leather Production Worker Relationship Specialty Start Date End Date Broderick Joiner DO [address] [place] [address] PCP - General Internal Medicine 09/21/18 Kitty Valente MD [address] [place] [address] Primary Staff Physician Cardiology 01/31/19 documented as of this encounter
--- OUTSIDE RECORDS SUMMARY | 2025-08-02 10:09 | XMS_ITS | Encounter Summary ---
Author Organization [facility] Address [address] [place] [address] Care Team Providers Care Commercial Kitchen Service Technician Name Role Phone RhysBroderick Primary Care Provider [phone] Kitty Valente MD Unavailable Un available Source Comments In the event this information is protected by the Federal Confidentiality of Alcohol and Drug AbusePatient Records regulations: The Federal rules restrict any use of the information to criminally investigate or prosecute any alcohol or drug abuse patient.[facility] Encounter Details Date Type Department Care Team (Late st Contact Info) Description 06/02/2021 Patient Msg Cardiology [address] [phone] ProviderLorrie Missed remote transmission Social History Tobacco [...] 10/30/2025 10:30 AM EST Office Visit Neurology [address] [place] [address] [place] [address] [address]/[facility] [place] [address] Botox 01/09/2026 11:00 AM EST Office Visit Neurology [address] [facility] [place] [phone] Ross Villar MD, PhD [address] [place] [address] annaul follow up documented as of this encounter Visit Diagnoses Not on filedocumented in this encounter Care Teams Commercial Kitchen Service Technician Relationship Specialty Start Date End Date Broderick Joiner DO [address] [place] [address] PCP - General Internal Medicine 09/21/18 Kitty Valente MD [address] [place] [address] Primary Staff Physician Cardiology 01/31/19 documented as of this encounter
--- OUTSIDE RECORDS SUMMARY | 2025-08-02 10:09 | XMS_ITS | Encounter Summary ---
Author Organization [facility] Address [address] [place] [address] Care Team Providers Care Address Change Clerk Name Role Phone Broderick Joiner DO Primary Care Provider [phone] Encounter Details Date Type Department Care Team (Late st Contact Info) Description 05/30/2024 External Result Encounter [facility] External Department Unsolicited Priyank Mcfadden, PA [address] [facility] [place] [address] Social History Tobacco Use Types [...] Rico John M.D.05/30/2024 10:27 AM Dictation Location: [facility]12 Transcribed By: [facility] 05/30/24 1027 Dictated By: Rico John DO 05/30/24 1006 Signed By: <Electronically signed by Rico John DO in OV> 05/30/24 1027 Narrative 05/30/2024 10:29 AM EDT [facility] Main [place] [address] [place] [address] MRI Report Signed Patient: Cassi Rodrigez MR#: [id number] 8 : 1950 Acct:[id number] Age/Sex: 74 / F ADM Date: 05/30/24 Loc: Room: Type: [facility] Attending Dr: Priyank Mcfadden PA-C Copies to: [...] con Procedure Note Radiology, Radiologist, - 05/30/2024 [facility] Main [place] [address] [place] [address] MRI Report Signed Patient: Cassi RodrigezMR#: [id number] 8 : 1950Acct:[id number] Age/Sex: 74 / FADM Date: 05/30/24 Loc: MR Room:Type: [facility] Attending Dr: Priyank Mcfadden PA-C Copies to: [...] Rico John M.D.05/30/2024 10:27 AM Dictation Location: Audit Verify Transcribed By: [facility] 05/30/24 1027 Dictated By: Rico John DO 05/30/24 1006 Signed By: <Electronically signed by Rico John DO in OV> 05/30/24 1027 us Priyank QUINONEZ IMG MRI PROCEDURES Final Resu lt documented in this encounter Visit Diagnoses Not on filedocumented in this encounter Care Teams Address Change Clerk Relationship Specialty Start Date End Date Broderick Joiner DO PCP - General Internal Medicine 05/03/24 documented as of this encounter
--- OUTSIDE RECORDS SUMMARY | 2025-08-02 10:09 | XMS_ITS | Encounter Summary ---
Author Organization [facility] Address [address] [place] [address] Care Team Providers Care Carpenter Packing Name Role Phone Broderick Joiner DO Primary Care Provider [phone] Kitty Valente MD Unavailable Un available Source Comments In the event this information is protected by the Federal Confidentiality of Alcohol and Drug AbusePatient Records regulations: The Federal rules restrict any use of the information to criminally investigate or prosecute any alcohol or drug abuse patient.[facility] Reason for Visit * Reason Comments patient update Encounter Details Date Type Department Care Team (Late st Contact Info) Description 11/30/2024 Telephone Neurology [address] [place] [address] [place] [address] [address] [place] [phone] patient update Social History Tobacco Use Types [...] is lower risk 4 09/08/2023 Data from: https://www.neighborhoodatlas.[facility]/. Last address used for calculation [address] [...] Salvador RN - 12/04/2024 2:34 PM EST Vichy is insurance listed as primary in chart. [...] 10/30/2025 10:30 AM EST Office Visit Neurology [address] [place] [address] [place] [address] [address] [place] [address] Botox 01/09/2026 11:00 AM EST Office Visit Neurology [address] [place] [address] Ross Villar MD, PhD [address] [place], [place] [phone] annaul follow up documented as of this encounter Goals Goal Patient Goal Type Associated Problems Recent Progress Patient-Stated? Author Blood Pressure < 130/80 Blood Pressure 124/74( 025 9:45 AM EDT) No Kitty Valente MD documented as of this encounter Visit Diagnoses Not on filedocumented in this encounter Care Teams Carpenter Packing Relationship Specialty Start Date End Date Broderick Joiner DO [address] [place] [address] PCP - General Internal Medicine 09/21/18 Kitty Valente MD [address] [facility] [place] [place] [address] Primary Staff Physician Cardiology 01/31/19 documented as of this encounter
--- OUTSIDE RECORDS SUMMARY | 2025-08-02 10:09 | XMS_ITS | Encounter Summary ---
Author Organization [facility] Address [address] [place] [address] Care Team Providers Care Urogynaecologist Name Role Phone Broderick Joiner Primary Care Provider Kitty Valente MD Unavailable Un available Source Comments In the event this information is protected by the Federal Confidentiality of Alcohol and Drug AbusePatient Records regulations: The Federal rules restrict any use of the information to criminally investigate or prosecute any alcohol or drug abuse patient.[facility] Encounter Details Date Type Department Care Team (Late st Contact Info) Description 01/04/2025 Patient Msg Neurology [address] [phone] Ross Villar MD, PhD [address] [place] [address] ACTION REQUIRED: Please complete your [...] is lower risk 4 09/08/2023 Data from: https://www.neighborhoodatlas.[facility]/. Last address used for calculation [address] 09/08/2023 Comments No Sex and [...] 10/30/2025 10:30 AM EST Office Visit Neurology [address] [place] [address] [place] [address] [address]/[facility] [place] [address] Botox 01/09/2026 11:00 AM EST Office Visit Neurology [address] [place] [address] Ross Villar MD, PhD [address] [place] [address] annaul follow up documented as of this encounter Goals Goal Patient Goal Type Associated Problems Recent Progress Patient-Stated? Author Blood Pressure < 130/80 Blood Pressure 124/74( 025 9:45 AM EDT) No Kitty Valente MD documented as of this encounter Visit Diagnoses Not on filedocumented in this encounter Care Teams Urogynaecologist Relationship Specialty Start Date End Date Broderick Joiner DO [address] [place] [address] PCP - General Internal Medicine 09/21/18 Kitty Valente MD [address] [place] [address] Primary Staff Physician Cardiology 01/31/19 documented as of this encounter
--- OUTSIDE RECORDS SUMMARY | 2025-08-02 10:09 | XMS_ITS | Encounter Summary ---
Author Organization [facility] Address [address] [place] [address] Care Team Providers Care Service Counter Cashier Name Role Phone MorenaLeo snowGerardo Primary Care Provider [phone] Shashi Lisa DO Primary Care Provider Broderick Joiner DO Primary Care Provider [phone] Kitty Valente MD Unavailable Un available Kitty Valente MD Unavailable Un available Source Comments In the event this information is protected by the Federal Confidentiality of Alcohol and Drug AbusePatient Records regulations: The Federal rules restrict any use of the information to criminally investigate or prosecute any alcohol or drug abuse patient.[facility] Encounter Details Date Type Department Care Team (Late st Contact Info) Description 10/06/2015 Patient Msg Medical Records [facility] [place] [address] Provider, Ccf Levetiracetam (Keppra) level Social History [...] 10/30/2025 10:30 AM EST Office Visit Neurology [address] [place] [place] [address] [place] [address] [address]/[facility] [place] [address] Botox 01/09/2026 11:00 AM EST Office Visit Neurology [address] [place] [address] Ross Villar MD, PhD [address] [place] [address] annaul follow up documented as of this encounter Visit Diagnoses Not on filedocumented in this encounter Care Teams Service Counter Cashier Relationship Specialty Start Date End Date Leo Fierro [address] [place] [address] PCP - General Family Medicine 01/23/11 11/14/16 Shashi Lisa DO [address] [place] [address] PCP - General Family Medicine 11/15/16 09/20/18 Broderick Joiner DO [address] [place] [address] PCP - General Internal Medicine 09/21/18 Kitty Valente MD [address] [place] [address] Primary Staff Physician Cardiology 01/31/1901/31 Kitty Valente MD [address] [place] [place] [address] Primary Staff Physician Cardiology 01/31/19 documented as of this encounter
--- OUTSIDE RECORDS SUMMARY | 2025-08-02 10:10 | XMS_ITS | Encounter Summary ---
Author Organization [facility] Address [address] [place] [address] Care Team Providers Care Access Rep Name Role Phone RhysBroderick Aldair MCKEON Primary Care Provider [phone] Kitty Valente MD Unavailable Un available Source Comments In the event this information is protected by the Federal Confidentiality of Alcohol and Drug AbusePatient Records regulations: The Federal rules restrict any use of the information to criminally investigate or prosecute any alcohol or drug abuse patient.[facility] Encounter Details Date Type Department Care Team (Late st Contact Info) Description 12/13/2023 Patient Msg Neurology [address] [phone] Provider, Ccf Refill Social History Tobacco Use [...] is lower risk 4 09/08/2023 Data from: https://www.neighborhoodatlas.medicine.[facility].edu/. Last address used for calculation [address] [...] of Assessment Author Yes 08/19/2015 11:02 AM Vtia Elizondo) (Hist), RN documented as of this [...] 10/30/2025 10:30 AM EST Office Visit Neurology [address] [place] [address] [place] [address]/[facility] [place] [address] Botox 01/09/2026 11:00 AM EST Office Visit Neurology [address] [facility] [place] [address] Ross Villar MD, PhD [address] [place] [address] annaul follow up documented as of this encounter Visit Diagnoses Not on filedocumented in this encounter Care Teams Access Rep Relationship Specialty Start Date End Date Broderick Joiner DO [address] [place] [address] PCP - General Internal Medicine 09/21/18 Kitty Valente MD [address] [place] [address] Primary Staff Physician Cardiology 01/31/19 documented as of this encounter
--- OUTSIDE RECORDS SUMMARY | 2025-08-02 10:10 | XMS_ITS | Encounter Summary ---
Author Organization [facility] Address [address] [place] [address] Care Team Providers Care Home Improvement Advisor Name Role Phone Broderick Joiner DO Primary Care Provider [phone] Kitty Valente MD Unavailable Un available Kitty Valente MD Unavailable Un available Source Comments In the event this information is protected by the Federal Confidentiality of Alcohol and Drug AbusePatient Records regulations: The Federal rules restrict any use of the information to criminally investigate or prosecute any alcohol or drug abuse patient.[facility] Encounter Details Date Type Department Care Team (Late st Contact Info) Description 08/24/2019 Patient Msg Cardiology [address] [place] [address] Provider, Ccf Appointment Social History Tobacco Use [...] 10/30/2025 10:30 AM EST Office Visit Neurology [address] [place] [address] [place] [address] [address]/[facility] [place] [address] Botox 01/09/2026 11:00 AM EST Office Visit Neurology [address] [place] [address] Ross Villar MD, PhD [address] [place], [place] [phone] annaul follow up documented as of this encounter Visit Diagnoses Not on filedocumented in this encounter Care Teams Home Improvement Advisor Relationship Specialty Start Date End Date Broderick Joiner DO [address] [place] [address] PCP - General Internal Medicine 09/21/18 Kitty Valente MD [address] [place] [address] Primary Staff Physician Cardiology 01/31/1901/31 Kitty Valente MD [address] [place] [address] Primary Staff Physician Cardiology 01/31/19 documented as of this encounter
--- OUTSIDE RECORDS SUMMARY | 2025-08-02 10:10 | XMS_ITS | Clinical Summary ---
Author Organization [facility] Address [address] [place] [address] Care Team Providers Care Leader Tier Name Role Phone Broderick Joiner Primary Care Provider [phone] Kitty Valente MD Unavailable Un available Allergies Active Allergy Reactions Criticality Noted Date Comments Dexamethasone Rash 10/03/2015 Pregabalin Rash Medium 08/24/2013 Medications * This document contains information received from the source organization and may not represent a complete record from that organization. omeprazole (PRILOSEC) 40 mg capsule Take 1 capsule by mouth once daily. 0 1 Active warfarin (COUMADIN) 4 mg tablet Take 1 tablet by mouth once daily. 0 5 Active ondansetron orally disintegrating (ZOFRAN ODT) 4 mg disintegrating tablet 1 Active amitriptyline (ELAVIL) 25 mg tablet Take 25 mg by mouth daily at bedtime. Active carvedilol (COREG) 12.5 mg tablet Take 12.5 mg by mouth twice daily with meals. Active amLODIPine (NORVASC) 5 mg tablet Take 5 mg by mouth once daily. 2 Active levETIRAcetam (KEPPRA) 750 mg tablet Take 1 tablet by mouth two times a day. 180 tablet 3 5 01/04/20 26 Active ergocalciferol 50,000 unit capsule (VITAMIN D2, [...] mcg capsule Take 72 mcg by mouth. 4 Active doxycycline hyclate (VIBRAMYCIN) 100 mg capsule Take 100 mg by mouth. 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 270 capsule 1 5 12/19/19 26 Active Hospital, Clinic, or Other Facility Administered Medication Ordered Dose Route Frequency Start Date End Date Status onabotulinum toxin type A 200 Units injection (BOTOX) 200 Units IM ONCE (UP TO 30 DAYS AMB) 07/18/2025 07/18/2025 Ended Active Problems Problem Noted Date Diagnosed Date [...] Encounters Date Type Department Care Team Description 07/25/2025 Orders Only Pseudo CARD EPS MAIN Pseudo Department Only [facility] Kitty Valente MD 07/18/2025 10:00 AM EDT Office Visit Neurology [address] [place] [phone] Ashley Tran MD Intractable 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 aura and without status migrainosus (Primary Dx) 07/12/2025 Travel 06/22/2025 Refill Neurology [address] [phone] Lauren Otero APRN.ELEVATOR SERVICE TECHNICIAN Refill Request 05/21/2025 8:00 AM EDT Office Visit Neurology [address] [place] [address] Elian Jones DO Chronic pain syndrome (Primary Dx); MCI (mild cognitive impairment); Sinus node dysfunction (HCC); Obesity, Class II, BMI 35-39.9 05/14/2025 Travel from Last 3 Months Family History [...] Not Answered Alcohol Use Standard Drinks/Week Comments No 0 (1 standard drink = 0.6 oz pur e alcohol) PHQ-2 Answer Date Recorded PHQ-2 score 1 07/12/2025 Area Deprivation Index Answer Date Chucky rded National Score (1-100), lower number is lower ri sk 63 09/08/2023 State Score (1-10), lower number is lower risk 4 09/08/2023 Data from: https://www.neighborhoodatlas.medicine.[facility].edu/. Last address used for calculation [address] 09/08/2023 Comments No Sex and Gender Information Value Date Recorded Sex Assigned at Not on file Legal Sex Female 10:00 AM EST Gender Identity Not on file Sexual Orientation Not on file Last Filed Vital Signs Vital Sign Reading Time Taken Comments Blood Pressure 124/74 07/18/2025 9:45 AM EDT Pulse 82 07/18/2025 9:45 AM EDT Temperature 36.4 C (97.6 F) 12/23/2023 9:02 AM EST Respiratory Rate 16 11/28/2021 1:11 PM EST Oxygen Saturation 100% 12/23/2023 9:02 AM EST Inhaled Oxygen Concentration - - Weight 87.1 kg (192 lb 0.3 oz) 07/18/2025 9:45 A M EDT Height 157.5 cm (5' 2 ) 07/18/2025 9:45 AM EDT Body Mass Index 35.12 07/18/2025 9:45 AM EDT Plan of Treatment Upcoming Encounters Date Type Department Care Team (Late st Contact Info) Description 10/30/2025 10:30 AM EST Office Visit Neurology [address] [place] [address] [place] [address] [address] [place] [address] Botox 01/09/2026 11:00 AM EST Office Visit Neurology [address] [facility] [place] [phone] Ross Villar MD, PhD [address] [place] [address] annaul follow up Health Maintenance Due Date [...] 9:45 AM EDT) No Kitty Valente MD Medical Devices Implanted Type Area Non Destructive Testing Technician Device Identifier Shelf Expiration Date Model / Serial / Lot [id number] Capsurefix Novus [id number] Implanted:06/2015 (Quantity not on file) Lead [employer] 5076 CAPSUREFIX NOVUS / [id number] / [id number] Capsurefix Novus [id number] Implanted:06/2015 (Quantity not on file) Lead [employer] 5076 CAPSUREFIX NOVUS / [id number] / Pacemaker-A2d r01 Advisa [id number] Implanted:06/2015 (Quantity not on file) Pacemaker [employer] [id number] Advisa DR COBOS / [id number] / Plate Bn 12mm Cmf Ti 2 H Lp - [id number] Implanted:Qty : 3 on 08/16/2015 at [facility] Plate STRY-HOWM CRANIOMAXILLOFACIAL [id number] / / Pin Crss Sd Scr 1.5x4mm - [id number] Implanted:Qty : 6 on 08/16/2015 at [facility] Screw STRY-HOWM CRANIOMAXILLOFACIAL [id number] / / Procedures Procedure Name Priority Date/Time Associated Diagnosis Comments CARDIAC IMPLANTABLE DEVICE CHECK REMOTE Routine 07/25/2025 2:11 PM EDT Procedure Note - Ktity Valente MD - 07/25/2025 2:11 PM EDTThis note is in progress. Normal Remote: No Events * Normal Device Function * Alerts or events: None * Battery: OK, 7 mos * Sensing, impedance and thresholds reviewed * Programmed parameters reviewed * Presenting rhythm: AP/VS * Heart Rate Histograms reviewed * No significant changes noted * AP 99.9%, AUTOGRAPHER <0.1%. NOTE TO PROVIDERS: Cardiac Implanted Devices Flowsheets contain detailedProgramming and Evaluation data. Full Docket/PDF found below under Scanned Documents . COMPREHENSIVE METABOLIC PANEL Routine 06/29/2024 1:57 PM EDT Focal epilepsy with impairment of consciousness, intractable (HCC) from Last 3 Months or Most Recently Relevant to Health Maintenance Results * (ABNORMAL) COMPREHENSIVE METABOLIC PANEL (06/29/2024 1:57 PM EDT) Pathologist [facility] Protein, Total 7.0 6.3 - 8.0 g/dL 06/29/2024 2:36 PM EDT [facility] Albumin 4.3 3.9 - 4.9 g/dL 06/29/2024 2:36 PM EDT [facility] Calcium, Total 8.8 8.5 - 10.2 mg/dL 06/29/2024 2:36 PM EDT [facility] Bilirubin, Total 0.4 0.2 - 1.3 mg/dL 06/29/2024 2:36 PM EDT [facility] Alkaline Phosphatase 170(H) 34 - 123 U/L 06/29/2024 2:36 PM EDT [facility] AST 22 13 - 35 U/L 06/29/2024 2:36 PM EDT [facility] ALT 28 7 - 38 U/L 06/29/2024 2:36 PM EDT [facility] Glucose 111(H) 74 - 99 mg/dL 06/29/2024 2:36 PM EDT [facility] Comment: The [place] Diabetes Association (ADA) provides guidance for cutoff [...] Standards of Medical Care in Diabetes 2016, [place] Diabetes Association. Diabetes Care. 2016.39(Suppl 1). BUN 34(H) 7 - 21 mg/dL 06/29/2024 2:36 PM EDT [facility] Creatinine 1.73(H) 0.58 - 0.96 mg/dL 06/29/2024 2:36 PM EDT [facility] Sodium 141 136 - 144 mmol/L 06/29/2024 2:36 PM EDT [facility] Potassium 5.1 3.7 - 5.1 mmol/L 06/29/2024 2:36 PM EDT [facility] Chloride 109(H) 98 - 107 mmol/L 06/29/2024 2:36 PM EDT [facility] CO2 24 22 - 30 mmol/L 06/29/2024 2:36 PM EDT [facility] Anion Gap 8 8 - 15 mmol/L 06/29/2024 2:36 PM EDT [facility] Estimated Glomerular Filtration Rate 31(L) >=60 mL/min/1. 73m 06/29/2024 2:36 PM EDT [facility] Comment:Estimated Glomerular Filtration Rate (eGFR) is [...] Villar MD, PhD LABORATORY Final Re sult [facility] [address] [place] [address], from Last 3 Months or Most Recently Relevant to Health Maintenance Insurance [employer] Care Teams Leader Tier Relationship Specialty Start Date End Date Broderick Joiner DO [address] [place] [address] PCP - General Internal Medicine 09/21/18 Kitty Valente MD [address] [place] [address] Primary Staff Physician Cardiology 01/31/19
--- OUTSIDE RECORDS SUMMARY | 2025-08-02 10:10 | XMS_ITS | Encounter Summary ---
Author Organization [facility] Address [address] [place] [address] Care Team Providers Care Office Executive Name Role Phone RhysBroderick Aldair MCKEON Primary Care Provider [phone] Kitty Valente MD Unavailable Un available Source Comments In the event this information is protected by the Federal Confidentiality of Alcohol and Drug AbusePatient Records regulations: The Federal rules restrict any use of the information to criminally investigate or prosecute any alcohol or drug abuse patient.[facility] Encounter Details Date Type Department Care Team (Late st Contact Info) Description 12/08/2023 Patient Msg Neurology [address] [phone] Provider, Ccf refill Social History Tobacco Use [...] is lower risk 4 09/08/2023 Data from: https://www.neighborhoodatlas.medicine.[facility].edu/. Last address used for calculation [address] [...] 10/30/2025 10:30 AM EST Office Visit Neurology [address] [place] [address] [place] [address]/[facility] [place] [address] Botox 01/09/2026 11:00 AM EST Office Visit Neurology [address] [facility] [place] [address] Ross Villar MD, PhD [address] [place] [address] annaul follow up documented as of this encounter Visit Diagnoses Not on filedocumented in this encounter Care Teams Office Executive Relationship Specialty Start Date End Date Broderick Joiner DO [address] [place] [address] PCP - General Internal Medicine 09/21/18 Kitty Valente MD [address] [place] [address] Primary Staff Physician Cardiology 01/31/19 documented as of this encounter
--- OUTSIDE RECORDS SUMMARY | 2025-08-02 10:10 | XMS_ITS | Clinical Summary ---
Author Organization [facility] Address [address] [place] [address] Phone Care Team Providers Care Mailing Specialist Name Role Phone Unavailable Primary Care Provider [...] of 2) 2000 Bone Density Scan 2015 RSV High Risk: (Elderly (60+ ) or Population) (1 - 1-dose 75+ series) 2025 COVID-19 Vaccine ( - 2023-2 5 season) 2025 Influenza Vaccine (#1) 2025 HIB Vaccines [...] patient's age to complete this topic Insurance [employer]
--- OUTSIDE RECORDS SUMMARY | 2025-08-02 10:10 | XMS_ITS | Clinical Summary ---
Author Organization [facility] Address [id number] [address] [place] [address] Care Team Providers Care Automotive Vehicle Inspector Name Role Phone Shashi Lisa DO Primary [...] Medical Devices Not on file Insurance MEDICARE [facility] INSURANCE Care Teams Automotive Vehicle Inspector Relationship Specialty Start Date End Date Shashi Lisa DO PCP - General 12/17/17
--- OUTSIDE RECORDS SUMMARY | 2025-08-02 10:10 | XMS_ITS | Patient Health Record ---
Author Organization [facility] Address [address] [address] Care Team Providers Care Muck Farmer Name Role Phone Shashi De Souza Primary Care Provider Reason For Referral Reason twenty-nine palms j cervical col lar wear prn listhesis c34. Diagnosis 1 Spondylolisthesis (M 43.10) Referral Organization [facility] [id number] Referring Provider First Name Shashi Referring Provider Last Name Ap Referring Provider Speciality Neurosurge ry Referred Provider Specialty Other Medica l Care Referral Priority Routine Social History Social History Tobacco Use: Social Info Question Answer Notes Tobacco Use/Smoking How long has it been since you last smoked? > 10 years Problems Problem Type SNOMED Code ICD Code Onset Dates Problem Status W/U Status Risk Notes Problem Spondylolisthesis (078965876) Spondylolisthesis (M43.10) Active confirmed Problem Post-laminectomy syndrome (93841713) Post laminectomy syndrome (M96.1) Active confirmed Problem Post-laminectomy syndrome (16377086) Post laminectomy syndrome (M96.1) Active confirmed Problem Sciatica (03051020) Lumbago of l umbar region with sciatica (M54.40) Active confirmed Problem Neurogenic claudication (175611883) Spinal stenosis, lumbar region with neurogenic claudication (M48.062) Active confirmed Encounters Encounter Location Date Provider Diagnosis [facility] [address] [place] [address] 08/02/2024 Shashi De Souza Spondylolisthesis M4 3.10 [facility] [address] [place] [address] 08/30/2024 Shashi De Souza Lumbago of lumbar re gion with sciatica M54.40 [facility] [address] [place] [address] 11/22/2024 Shashi De Souza Post laminectomy syn drome M96.1 [facility] [address] [place] [address] 01/17/2025 Shashi De Souza Post laminectomy syn drome M96.1 [facility] [id number]/[facility] [address] [address] 08/24/2024 Shashi Mossw [facility] [id number]/[facility] [address] [address] 08/30/2024 Shashi Rhiew [facility] [id number] [address] [address] 09/07/2024 Shashi De Souza Lumbago of lumbar re gion with sciatica M54.40 Assessments Encounter Date Diagnosis (ICD Code) Assessment Notes Treatment Notes Treatment Clinical Notes Section Notes 08/02/2024 Spondylolisthesis (ICD-10 - M43.10) NUMBER OF [...] diabetes or tobacco use and may cause fci pain and require future revision, removal or [...] She did have recent CT scan at [facility] July 12 with moderate severe central canal stenosis L2-3 and L3-4. As well as reviewed the postoperative MRI lumbar from [facility]'s March 28 of this year versus preoperative [...] get me the CT scan of the [facility] CAT scan lumbar for review otherwise we [...] as noted above. Risk of complications and morbidity/mortali ty is high in this patient with an abrupt change in neurologic status with threat to bodily function and/or life. Other chronic illness noted above. Diagnostic procedures: reviewed above. Management options: to include over the counter drugs, prescription drug management, physical/occupati onal therapy, possible elective major surgery. 08/30/2024 Lumbago of lumbar region with sciatica (ICD-10 - M54.40) NUMBER OF DIAGNOSES AND MANAGEMENT OPTIONS: I am following this patient fci as the primary caregiver for the primary [...] as noted above. Risk of complications and morbidity/mortali ty is high in this patient with an abrupt change in neurologic status with threat to bodily function and/or life. Other chronic illness noted above. Diagnostic procedures: reviewed above. Management options: to include over the counter drugs, prescription drug management, physical/occupati onal therapy, possible elective major surgery. 09/07/2024 Lumbago [...] Date [employer] MEDIC[employer] [address] [place] [phone] [id number] Cassi Rodrigez Self - patient is the insured
--- OUTSIDE RECORDS SUMMARY | 2025-08-02 10:10 | XMS_ITS | Encounter Summary ---
Author Organization [facility] Address [address] [place] [id number] Care Team Providers Care Payroll Consultant Name Role Phone MorenaLeo snowGerardo Primary Care Provider + [phone] Shashi Lisa DO Primary Care Provider Broderick Joiner DO Primary Care Provider [phone] Kitty Valente MD Unavailable Un available Kitty Valente MD Unavailable Un available Source Comments In the event this information is protected by the Federal Confidentiality of Alcohol and Drug AbusePatient Records regulations: The Federal rules restrict any use of the information to criminally investigate or prosecute any alcohol or drug abuse patient.[facility] Encounter Details Date Type Department Care Team (Late st Contact Info) Description 04/19/2015 Patient Msg Medical Records [facility] [place] [address] Provider, [facility] Your virtual after visit summary [...] 10/30/2025 10:30 AM EST Office Visit Neurology [address] [place] [address] [place] [id number] [place] [address] Botox 01/09/2026 11:00 AM EST Office Visit Neurology [address] [place] [phone] Ross Villar MD, PhD [address] [place], [place] [id number] annaul follow up documented as of this encounter Visit Diagnoses Not on filedocumented in this encounter Care Teams Payroll Consultant Relationship Specialty Start Date End Date Leo Fierro [address] [place] [phone] PCP - General Family Medicine 01/23/11 11/14/16 Shashi Lisa DO [address] [place] [address] PCP - General Family Medicine 11/15/16 09/20/18 Broderick Joiner DO [address] [place] [address] PCP - General Internal Medicine 09/21/18 Kitty Valente MD [address] [place] [address] Primary Staff Physician Cardiology 01/31/1901/31 Kitty Valente MD [address] [place] [address] Primary Staff Physician Cardiology 01/31/19 documented as of this encounter
--- OUTSIDE RECORDS SUMMARY | 2025-08-02 10:18 | XMS_ITS | CCD ---
Author Organization [facility] Care Team Providers Care Whipped Topping Supervisor Name Role Phone Bertram Sanders Unavailable Broderick Howard DO Primary Care Provider Pascual Millard MD, Kitty Unavailable Un available Broderick Howard DO Primary Care Provider Pascual Millard MD, Kitty Unavailable Un available Broderick [...] Unavailable MD Niki Weeks Attending Provider Pascual Millard MD, Kitty Unavailable Un available Ball DOBroderick Primary Care Provider Ball, DO Broderick Primary Care Provider Ball, DO Broderick Attending Provider WILIAN Mcfadden Attending Provider Ball, DO Broderick Primary Care Provider Lee, [...] Admitting Unavailable Rhiew, Shashi B Attending Unavailable Shashi De Souza Referring Unavailable RhiewShashi Admitting Unavailable RhiewShashi Attending Unavailable RhiewShashi Referring Unavailable OJUKWU, Mbanefo Consulting Unavailable OJUKWJulio C, Mbanefo Consulting Unavailable OJUKWU, Mbanefo Consulting Unavailable OJUKWU, Mbanefo Consulting Unavailable OJUKWU, Mbanefo Consulting Unavailable OJUKWU, Mbanefo Consulting Unavailable OJUKWU, Mbanefo Consulting Unavailable OJUKWU, Mbanefo Consulting Unavailable OJUKWU, Mbanefo Consulting Unavailable OJUKWU, Mbanefo Consulting Unavailable RhiewShashi Admitting Unavailable Rhiew, Shashi Barragan Attending Unavailable RhiewShashi Referring Unavailable OJUKWJulio C, Mbanefo Consulting Unavailable OJUKWU, Mbanefo Consulting Unavailable OJUKWU, Mbanefo Consulting Unavailable OJUKWU, Mbanefo Consulting Unavailable OJUKWU, Mbanefo Consulting Unavailable OJUKWU, Mbanefo Consulting Unavailable OJUKWU, Mbanefo Consulting Unavailable OJUKWU, Mbanefo Consulting Unavailable Broderick Howard DO Primary Care Provider Kristel Low APRN Emergency Provider [phone] Broderick Howard MD Primary Care Provider AFTAB DEY Attending Unavailable DAVID MCFADDEN Attending Unavailable DAVID MCFADDEN Referring Unavailable DAVID MCFADDEN Referring Unavailable JR. SALTER GEORGE C Attending Unavaila ble AFTAB DEY Attending Unavailable Broderick Howard DO Primary Care Provider [phone] Kristel Low APRN Emergency Provider [phone] KITTY VALENTE Attending Unava ilable BRODERICK HOWARD Primary Care Unavailable KITTY VALENTE Referring Unava ilable BRODERICK HOWARD Primary Care Unavailable ELIAN JONES Attending Unavailable ALEJANDRO VILLAR Referring Unavailable BRODERICK HOWARD Primary Care Unavailable Broderick Howard DO Primary Care Provider [phone] Broderick Howard DO Attending Provider [phone] TOMMIE, RANDA M Attending Unavailable REILLY, RANDA M Referring Unavailable BALL, BRODERICK E Primary Care Unavailable REILLY, RANDA M Attending Unavailable REILLY, RANDA M Referring Unavailable BALL, BRODERICK E Primary Care Unavailable REILLY, RANDA M Attending Unavailable REILLY, RANDA M Referring Unavailable BALL, BRODERICK E Primary Care Unavailable ALEJANDRO VILLAR Attending Unavailable BALL, BRODERICK E Primary Care Unavailable SVITLANA MAYFIELD Attending Unavailable REILLY, RANDA M Referring Unavailable BALL, BRODERICK E Primary Care Unavailable Trudi WOOD MILLING MACHINE OPERATOR-C, Tiana Quinteros Other Provider Leandra Gama MD Attending Provider Trudi GRAHAM-C, Tiana Quinteros Attending Provider Kristel Low Attending Unavailable Kristel Low Admitting Unavailable Ball, Broderick Primary Care Unavailable Trudi Tiana E Admitting Unavailable Ball, Broderick Primary Care Unavailable Tiana Brush Attending Unavailable Tiana Brush Admitting Unavailable Ball, Broderick Primary Care Unavailable Tiana Brush Attending Unavailable Allergies Allergy Classification Reported Allergen(s) Allergy Type Date of Onset Reaction(s) Facility (20 sources) Dexamethasone; Translations: [dexAMETHasone] Drug Allergy 10-03-20 15 Rash, Unknown [facility] (20 sources) pregabalin; Translations: [pregabalin] Drug Allergy 08-24-20 13 Rash [facility] (20 sources) rifAXIMin Drug Allergy 02-09-20 24 rash [facility] (1 source) Dexamethasone Drug Allergy [facility] Repository (6 sources) pregabalin; Translations: [Lyrica] Drug Allergy 11-15-19 08 [facility] (20 sources) Dexamethasone Drug Allergy 02-08-20 24 Unknown, Unknown Reaction [facility] (8 sources) Allergies Reconciled Propensity to adverse reactions Unknown [facility] Other (8 sources) patient allergy list reviewed by nurse or physicia Propensity to adverse reactions 04-13-20 19 Comment:Done [facility] Other (3 sources) Pregabalin Allergy to substance 08-24-20 13 Rash, Unknown [facility] (3 sources) rifAXIMin Drug Allergy 04-21-20 Rash [facility] (1 source) Dexamethasone Drug Allergy 07-02-20 [facility] (1 source) pregabalin Drug Allergy 07-02-20 [facility] (1 source) rifAXIMin Drug Allergy 07-02-20 [facility] Medications Current Medications Medication Drug Class(es) [...] for 7 day(s), 21 tab(s), Refill(s) 0, [facility]/pharmacy #[id number], 157, cm, 10/25/24 11:44:00 EST, Height/Length Dosing, 87.7, kg, 10/25/24 11:44:00 EST, Weight Dosing Start Date: 11/02/24 Stop Date: 11/09/24 Status: Ordered amitriptyline hydrochloride 50 mg oral tablet (20 sources) Tricyclic Antidepressant Start: 08-29-2024 take 1 tablet by mouth once daily at bedtime Start: 06-08-2024 End: 09-07-2024 Amitriptyline 10 mg [...] (20 sources) Dihydropyridine Calcium Channel Dylan Start: 02-22-2025 take 1 tablet by mouth once daily Start: 02-13-2025 End: 02-22-2025 take 1 tablet [...] take 1 tablet by mouth twice daily Start: 09-07-2024 End: 04-01-2025 take 1 tablet [...] 2024 2:29pm ergocalciferol 1.25 mg oral capsule (19 sources) Provitamin D2 Compound Start: 04-02-2025 take 1 capsule by mouth every week Start: 09-07-2024 End: 04-02-2025 take 1 capsule by mouth every week Ergocalciferol (Vitamin D2) 1,250 mcg (50,000 unit) capsule Discontinued 1250 MCG PO every week September 07, 2024 12:00am April 02, 2025 9:33am ferrous sulfate 325 mg oral tablet (20 sources) Start: 02-27-2025 Start: 09-07-2024 take 1 tablet by aris every other day ferrous sulfate 325 (65 Fe) MG tablet Take 1 tablet by mouth every other day 09/07/2024 Active Start: 09-07-2024 End: 02-27-2025 Ferrous Sulfate 325 mg (65 m g iron) tablet Discontinued 325 MG PO Every 48 hours September 07, 2024 12:00am February 27, 2025 8:42am furosemide 20 mg oral tablet (4 sources) Loop Diuretic Start: 02-22-2025 take 1 tablet by aris once daily levETIRAcetam 750 mg oral tablet (20 sources) Start: 02-08-2024 take 1 tablet by aris every twelve hours Start: 01-06-2021 End: 01-04-2026 take 1 tablet by mouth twice daily Levetiracetam 750 mg tablet Discontinued 750 MG PO Twice daily January 06, 2021 1:00am February 08, 2024 11:22am levETIRAcetam (K eppra) 1000 MG tablet every 12 (twelve) hours Active take 1 tablet by aris th every twelve hours levETIRAcetam 750 MG 1 tablet Orally every 12 hrs Active Comment on above: Take 1 tablet by aris twice daily. Take 1 tablet by aris th two times a day. take 1 tablet by aris th twice a day omeprazole 40 mg oral [...] on above: Take 1 capsule by mo [facility] once daily. ondansetron 4 mg disintegrating oral tablet (20 sources) Serotonin-3 Receptor Antagonist Start: 06-06-2024 End: 06-08-2025 take 1 tablet by mouth every six hours as needed for nausea Start: 11-25-2020 End: 06-06-2024 take 1 tablet [...] take 1 capsule by mouth once daily Start: 10-25-2024 take 150 mg by mouth [...] DAY Start: 08-20-2024 take 1 capsule by [facility] once daily Venlafaxine Active 0 .ROUTE .COMPLEX [...] 20, 2023 11:47am take 1 tablet by [facility] every twenty-four hours Venlafaxine HCl 75 MG 1 tablet with food Orally Once a day Not-Taking/PRN Comment on above: Take 1 capsule by [facility] once daily. Vitamin D (1 source) Start: 10-25-2024 Vitamin D 50,000 International_Unit, Oral, qWeek, Refills(s) 0, Prophylaxis Start Date: 10/25/24 Status: Ordered warfarin sodium 4 mg oral tablet (20 sources) Vitamin K Antagonist Start: 11-17-2024 take 1 tablet by mouth once daily Start: 11-02-2024 warfarin 4 mg Tab 2 mg = 0.5 tab(s), Oral, Vik Start Date: 11/02/24 Status: Ordered Start: 07-20-2023 [...] 1 tablet by aris th once daily. zonisamide 100 mg oral capsule (20 sources) Anti-epileptic Agent Start: 06-22-2025 End: 12-19-2025 take 3 capsules by mouth once daily at bedtime zonisamide (ZONEGRAN) 100 mg capsule Indications: Localization-related (focal) (partial) symptomatic epilepsy and epileptic syndromes with complex partial seizures, intractable, without status epilepticus (HCC) Take 3 capsules by mouth daily at bedtime. 270 capsule 1 06/22/2025 12/19/2025 Active Start: 10-25-2024 take 300 mg by mouth [...] take 1 capsule by mouth once daily Start: 01-06-2021 End: 02-09-2024 take 200 mg [...] time a week. onabotulinumtoxina 100 unt injection (10 sources) Acetylcholine Release Inhibitor Start: 07-18-2025 End: 07-18-2025 inject 1 dose by intramuscular injection every 30 days 200 Units, INTRAMUSCULAR, ONCE (UP TO 30 DAYS AMB), 1 dose, On Wed07/18/25 at 1300, This record documents the total dose provided to patient. See progress note for specific locations and amounts administered. REFRIGERATE - Pharmaceutical Waste: Lab Pack - Start: 07-18-2025 End: 07-18-2025 onabotulinum toxin type A 20 0 Units injection (BOTOX) Start: 04-10-2025 End: 04-10-2025 inject 1 dose [...] injection (BOTOX) cephalexin 500 mg oral capsule (15 sources) Cephalosporin Antibacterial Start: 11-17-2024 End: 11-24-2024 take 1 capsule by mouth three times daily Cephalexin 500 mg capsule Discontinued 500 MG PO Three times daily 04 06November 17, 2024 1:00am November 24, 2024 2:56pm Start: 08-12-2023 take 1 capsule by [facility] twice daily Keflex 500 MG 1 capsule Orally bid for 7 days Jul, Active cyclobenzaprine hydrochloride 5 mg oral tablet (20 sources) Muscle Relaxant Start: 06-27-2024 End: 10-27-2024 take 1 tablet by mouth twice daily as needed Cyclobenzaprine 5 mg tablet Discontinued 5 MG PO Twice daily as needed August 29, 2024 10:52am October 27, 2024 9:59am doxycycline monohydrate 100 mg oral capsule (18 sources) Tetracycline-c lass Drug Start: 02-21-2025 End: [...] Central alpha-2 Adrenergic Agonist Start: 3 End: take 1 tablet by mouth twice daily as needed for muscle spasms Tizanidine 4 mg Tablet Discontinued 4 MG PO Twice daily as needed for Muscle Spasm 28 August 05, 2023 12:00am February 08, 2024 11:24am traMADol hydrochloride 50 mg oral tablet (20 sources) Opioid Agonist Start: End: take 1 tablet by mouth twice daily as needed for pain Tramadol 50 mg tablet Discontinued 50 MG PO Twice daily as needed for pain April 13, 2024 3:16pm October 27, 2024 10:00am Start: 10-14-2020 End: 07-20-2023 take 1 tablet by mouth once daily Tramadol 50 mg tablet Discontinued 50 MG PO Daily January 06, 2021 1:00am July 20, 2023 11:48am Problems Active Problems Problem Classification Problem Date Documented Date Episodic/Chronic Acute bronchitis (8 sources) Acute bronchitis; Translations: [...] sources) H/O: high risk medication; Translations: [Other alf (current) drug therapy] Episodic Other aftercare (20 sources) Long-term current use of anticoagulant; Translations: [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 (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 of anticoagulants] Onset: 4 02-08-2024 Episodic Other aftercare (5 sources) Encounter for therapeutic drug level monitoring; Translations: [ENC THERAPEUTC DRUG LEVL MONITORING] Onset: 3 Episodic Other aftercare (1 source) 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 (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 of anticoagulants; Translations: [CARE HOME CURRNT USE ANTICOAGULANTS] Onset: 3 Episodic Other aftercare (8 sources) Long-term current use of drug therapy; Translations: [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 therapy] Episodic Other aftercare (1 source) Drug therapy finding; Translations: [Other alf (current) drug therapy] 02-08-2024 Episodic Other and [...] as traumatic] Episodic Other connective tissue disease (18 sources) Trochanteric bursitis; Translations: [Trochanteric bursitis, right hip] 04-21-2024 Episodic Other connective tissue disease (4 sources) Trochanteric bursitis, right hip; Translations: [Enthesopathy of hip region] 04-21-2024 Episodic Other connective tissue disease (12 sources) Swelling of right lower limb; Translations: [Other specified soft tissue disorders] 08-30-2024 Episodic Other connective tissue disease (5 sources) Other specified soft tissue disorders; Translations: [Swelling of limb] 08-30-2024 Episodic Other diseases of kidney and ureters (17 sources) Secondary hyperparathyroidism; Translations: [Secondary hyperparathyroidism of [...] Other hereditary and degenerative nervous system conditions (4 sources) Impaired cognition; Translations: [Mild cognitive impairment, [...] 2 01-30-2025 Episodic Other nervous system disorders (20 sources) Postoperative pain ; Translations: [Other acute postprocedural pain] 03-03-2024 Episodic Other nutritional; endocrine; and metabolic disorders (20 sources) Obesity; Translations: [Obesity, unspecified] Chronic Other nutritional; endocrine; and metabolic disorders (3 sources) Obese class II; Translations: [Obesity, Class II, BMI 35-39.9] Onset: 5 05-21-2025 Chronic Other screening for suspected conditions (not mental disorders or infectious disease) (13 sources) Encounter for screening mammogram for malignant [...] [Localized edema] 02-08-2024 Episodic Residual codes; unclassified (18 sources) History of operative procedure on lumbar spinal structure; Translations: [Other specified postprocedural states] 04-21-2024 Episodic Residual codes; unclassified (4 sources) Other specified postprocedural states; Translations: [Personal history of surgery to other organs] 04-21-2024 Episodic Residual codes; unclassified (1 source) Amnesia; Translations: [Other amnesia] 01-04-2025 Episodic Residual codes; unclassified (5 sources) Bilateral lower limb edema; Translations: [Localized [...] (suspected) exposure to COVID-19] Unclassified (1 source) Obesity, Class II, BMI 35-39.9; Translations: [Obesity, Class II, BMI 35-39.9] Onset: 5 Unclassified (1 source) M96.1 - Postlaminectomy syndrome, not elsewhere classified Viral infection (4 sources) COVID-19; Translations: [COVID-19] Onset: 2 Past or Other Problems Problem Classification Problem Date Documented Da te Episodic/Chronic Abdominal pain (20 sources) Abdominal pain; Translations: [Unspecified abdominal pain] Onset: 04-30-2014 02-08-2024 Episodic Blindness and vision defects (20 sources) Homonymous [...] Other aftercare (20 sources) Anticoagulant effect; Translations: [nursing home (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 of anticoagulants] Onset: 05-14-2015 05-14-2015 Episodic Other aftercare (1 source) Other alf (current) drug therapy; Translations: [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 Performed By: #### C REAT ####[place] [id number] [facility] GFR/1.73 sq M.predicted MDRD (S/P/Bld) [Vol rate/Area] 27.025 mL/min/{1.73_m2} Normal [facility] Comment on above: Order Comment: STAT FOR MRI Performed By: #### C REAT ####[place] [id number] [facility] Creatinine [Mass/volume] in Serum or PlasmaOrdered By: Tiana Brush on 08-01-2025 Creatinine [Mass/Vol] 1.91 mg/dL High 0.60-1.20 [facility] Comment on above: Order Comment: STAT FOR MRI Performed By: #### C REAT ####[place] [id number] [facility] Glomerular filtration rate [ Volume Rate/Area] in Serum, Plasma or Blood by CreatinineOrdered By: Tiana Brush on 08-01-2025 Glomerular filtration rate [Volume Rate/Area] in Serum, Plasma or Blood by Creatinine 27.025 mL/Min [facility] ISTAT XRay CREon 08-01-2025 ISTAT GFR 27.197 Normal [facility] Comment on above: Result Comment: PERF ORMED BY: [facility] [address] [place] [address] PATHOLOGIST STEEL HANGER LISA LOMBARDO M.D. Performed By: #### I SCRE ####[place] [id number] [facility] MR lumbar spine wo conon MR lumbar spine wo con [facility] Main [place] [address] [place] [address] MRI Report Signed Patient: Cassi Rodrigez MR#: [id number] : 1950 Acct:[id number] Age/Sex: 75 / F ADM Date: 08/01/25 Loc: MR Room: Type: [facility] Attending Dr: Tiana CHAMBERS Copies to: REYES Maldonado Ordering Provider: REYES Maldonado Date of Service: [...] at L5-S1 with posterior decompression at L4-5. Ther e is severe disc height loss at L1-L2 [...] Simon M.D. 08/01/2025 3:20 PM Dictation Location: [place] [address] Transcribed By: [facility] 08/01/25 1520 Dictated By: Arnel Simon II, MD 08/01/25 1508 Signed By: 08/01/25 1520 Normal [facility] Magnetic resonance imaging r eportOrdered By: Arnel Simon on 08-01-2025 Study report [facility] [place] [address] MRI Report Signed Patient: Cassi Rodrigez MR#: [id number] : 1950 Acct:[id number] Age/Sex: 75 / F ADM Date: 5 Loc: MR Room: Type: [facility] Attending Dr: Tiana CHAMBERS Copies to: REYES [...] Simon M.D. 08/01/2025 3:20 PM Dictation Location: [place] [address] Transcribed By: [facility] 08/01/25 1520 Dictated By: Arnel Simon II, MD 08/01/25 1508 Signed By: 08/01/25 1520 [facility] Work Phone: No Panel InformationOrdered By: Tiana Brush on 08-01-2025 Bedside Estimated GFR (eGFR) 27.197 [facility] Pharmacy Creatinine Clearance (Chem 25.93 [facility] Whole blood creatinine measu rementOrdered By: Tiana Brush on 08-01-2025 Creatinine [Mass/Vol] 1.9 mg/dL High 0.6-1.3 [facility] Comment on above: ER/ESD physician is notified/shown all ISTAT results.Critical values may be confirmed by laboratory testing ifdeemed necessary by ER attending doctor. Result Comment: ER/E SD physician is notified/shown all ISTAT results. Critical values may be confirmed by laboratory testing if deemed necessary by ER attending doctor. Performed By: #### I SCRE ####[facility] [id number] [place] [address] [facility] CNOVon 07-18-2025 CNOV Office Visit (NEADFV ) -- CSASI RODRIGEZ ([id number]) 1950 F Date Time Provider Department 07/18/25 10:00 AM RANDA REILLY NETAHMINAFV During your visit today, we recorded the following information about you: Pulse Blood pressure Weight Height 82/minute 124/74 87.1 kg 1.575 m Lon Alexander RN 07/18/2025 12:52 PM Signed Patient name and confirmed. Patient states she would like to receive Botox treatment today. 2 vials of Botox A (100 units in each) reconstituted with 2.2 cc of normal saline in each vial. Botox drawn up into four, 1 cc syringes. Each syringe containing 50 units of Botox. Assisted by: Robyn Blanc RN Botox, 2 vials: Lot # [id number] Exp 09/2027 Lot # [id number] Exp 09/[address] Reilly to administer and verified order. Randa Reilly MD 07/18/2025 12:52 PM Signed BOTOX PROCEDURE NOTE UNIVERSAL PROTOCOL [...] Reilly MD Botox procedure note Treatment # 5 Consent in EPIC Dilution: 5 units/0.1 ml ( 100 unit vial with 2 cc diluent or 200 unit vial with 4 cc diluent) Diluent: normal saline Indication: Chronic Intractable Migraine Right temporal metal plate with skin irregularity, no shunt Injection Sites Muscle Fixed Site/Fixed Dose Bilat Customer Support Associate 20 U divided in 2 sites Procerus [...] Total Units wasted: 0 Randa Reilly MD [facility] Randa Reilly MD 07/18/2025 12:52 PM Signed PROGRESS NOTE- [facility] DATE: July 18, 2025 Location: [facility] Participants: patient, and provider HPI: Here for follow up and Botox therapy. Migraine Characteristics: see note from September 05, 2024 Current Outpatient Medications Medication Sig zonisamide (ZONEGRAN) 100 mg capsule Take 3 capsules by mouth daily at bedtime. ergocalciferol 50,000 unit capsule (VITAMIN D2, DRISDOL) Take 1 capsule by mouth one time a week. ferrous sulfate 325 mg (65 mg iron) tablet Take 1 tablet by mouth every 48 hours. venlafaxine ER (EFFEXOR XR) 150 mg 24 hr capsule Take 150 mg by mouth once daily. losartan (COZAAR) 25 mg tablet TAKE 1 TABLET BY MOUTH ONCE EVERY MORNING FOR HTM linaCLOtide (LINZESS) 72 mcg capsule Take 72 mcg by mouth. doxycycline hyclate (VIBRAMYCIN) 100 mg capsule Take 100 mg by mouth. levETIRAcetam (KEPPRA) 750 mg tablet Take 1 [...] Reactions Lyrica [Pregabalin] Rash Dexamethasone Rash BP 124/74 Pulse 82 Ht 157.5 cm (5' 2 ) Wt 87.1 kg (192 lb 0.3 oz) BMI 35.12 kg/m? ASSESSMENT: - 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 aura - chronic cervicalgia - CKD RECOMMENDATIONS: 1. Preventive therapy: -continue Botox. See attached procedure note 2. Follow up in 3 months for Botox with me or WENDY Randa Reilly MD [facility] Referring Provider: RANDA REILLY [[id number]] Allergies As of Date: 07/18/2025 Noted Allergy Reaction LYRICA (PREGABALIN) 08/24/2013 2 - Rash DEXAMETHASONE 10/03/2015 2 - Rash Date Reviewed: 07/18/2025 Reviewed by: Nola Naranjo MA - Fully Assessed Reason for (more content not included)... Normal [facility] CNOVon 05-21-2025 CNOV Office Visit (NEBHLT ) -- CASSI RODRIGEZ ([id number]) 1950 F Date Time Provider Department 05/21/25 8:00 AM ELIAN JONES During your visit today, we recorded the following information about you: Blood pressure Weight 123/60 87.3 kg Elian Jones DO 05/23/2025 2:36 PM Signed [facility] New Patient Evaluation Cassi Rodrigez : 1950 05/21/2025 8:00 AM Chief Complaint: memory concern I had the pleasure of seeing this 75 year old year old female at the [facility]. The patient is referred by Dr. Alejandro [...] She was advised to follow up at [facility] for further evaluation of her memory concerns. [...] Injuries, Ac (more content not included)... Normal [facility] CNOVon 04-10-2025 CNOV Office Visit (NEADFV ) -- CASSI RODRIGEZ ([id number]) 1950 F Date Time Provider Department 04/10/25 11:30 AM RANDA REILLY NETAHMINAFV During your visit today, we recorded the following information about you: Pulse Blood pressure Weight Height 86/minute 109/72 85.6 kg 1.575 m Randa Reilly MD 04/10/2025 12:19 PM Signed PROGRESS NOTE- [facility] DATE: April 10, 2025 Location: [facility] Participants: patient, and provider HPI: Here for [...] with me or WENDY Randa Reilly MD [facility] Lon Alexander RN 04/10/2025 12:19 PM Signed [...] Farfan RN Botox, 2 vials: Lot # [id number] Exp 08/2027 Lot # [id number] Exp 08/[address] Reilly [...] Injection Sites Muscle Fixed Site/Fixed Dose Bilat Customer Support Associate 20 U divided in 2 sites Procerus [...] Total Units wasted: 0 Randa Reilly MD [facility] Referring Provider: RANDA REILLY [[id number]] Allergies As of Date: 04/10/2025 Noted Allergy [...] bedtime. - (more content not included)... Normal [facility] Erythrocyte distribution wid th Auto (RBC) [Ratio]on 02-12-2025 Erythrocyte distribution width (RBC) [Ratio] Erythrocyte distribution width [Ratio] by Automated count 11.0-15.0 [facility] Estimated glomerular filtrat ion rate (GFR) non- Americanon 02-12-2025 GFR/1.73 sq M.predicted among non-blacks MDRD (S/P/Bld) [Vol rate/Area] Estimated glomerular filtration rate (GFR) non- Low >=60 mL/min/1.7 2 [facility] Hematocrit Auto (Bld) [Volum e fraction]on 02-12-2025 Hematocrit (Bld) [Volume fraction] Hematocrit [Volume Fraction] of Blood by Automated count 36.0-48.0 [facility] Hemoglobin [Mass/volume] in Bloodon 02-12-2025 Hemoglobin (Bld) [Mass/Vol] Hemoglobin [Mass/volume] in Blood 12.0-16.0 [facility] Iron binding capacity [Mass/ volume] in Serum or Plasmaon 02-12-2025 Iron binding capacity [Mass/Vol] Iron binding capacity [Mass/volume] in Serum or Plasma 250.0-450. 0 [facility] Iron saturation [Mass Fracti on] in Serum or Plasmaon 02-12-2025 Iron saturation [Mass fraction] Iron saturation [Mass Fraction] in Serum or Plasma [facility] Laboratory - Chemistry and C hemistry - challengeon 02-12-2025 Albumin [Mass/Vol] 3.3 g/dL Low 3.4-5.0 [facility] Calcium [Mass/Vol] 8.6 mg/dL 8.5-10.1 [facility] Chloride [Moles/Vol] 107 mmol/L 98-107 [facility] CO2 [Moles/Vol] 21.1 mmol/L 21.0-32.0 [facility] Creatinine [Mass/Vol] 1.94 mg/dL High 0.55-1.02 [facility] Ferritin [Mass/Vol] 62.0 ng/mL 8.0-252.0 [facility] GFR/1.73 sq M.predicted MDRD (S/P/Bld) [Vol rate/Area] 31 mL/min/{1.73_m2} Low >=60 mL/min/1.7 2 [facility] Glucose [Mass/Vol] 117 mg/dL High 74-106 [facility] Iron [Mass/Vol] 75.0 ug/dL 50.0-170.0 [facility] Magnesium [Mass/Vol] 2.0 mg/dL 1.8-2.4 [facility] Potassium [Moles/Vol] 4.6 mmol/L 3.5-5.1 [facility] Sodium [Moles/Vol] 141 mmol/L 136-145 [facility] Urate [Mass/Vol] 5.0 mg/dL 2.6-6.0 [facility] Urea nitrogen [Mass/Vol] 27.0 mg/dL High 7.0-18.0 [facility] Urea nitrogen/Creatinine [Mass ratio] 13.9 mg/mg [facility] Laboratory - Urinalysison Protein (U) [Mass/Vol] 24.6 mg/dL High <=11.9 [facility] Leukocytes [#/volume] correc tanesha for nucleated erythrocytes in Blood by Automated counon 02-12-2025 WBC corrected for nucl RBC Auto (Bld) [#/Vol] Leukocytes [#/volume] corrected for nucleated erythrocytes in Blood by Automated coun 4.0-11.0 [facility] MCH Auto (RBC) [Entitic mass ]on 02-12-2025 MCH (RBC) [Entitic mass] MCH [Entitic mass] by Automated count 26.7-34.0 [facility] MCHC Auto (RBC) [Mass/Vol]on 02-12-2025 MCHC (RBC) [Mass/Vol] MCHC [Mass/volume] by Automated count 29.9-35.2 [facility] MCV Auto (RBC) [Entitic vol] on 02-12-2025 MCV (RBC) [Entitic vol] MCV [Entitic vol ume] by Automated count 81.0-99.0 [facility] No Panel Informationon 02-12 25-Hydroxy Vitamin D Total 36.0 ng/mL [facility] Comment on above: <20 ng/mL Vit D defi cient20-<30 ng/mL Vit D [id number] ng/mL Vit D sufficient>100 ng/mL Potential Toxicity Parathyroid Hormone (Intact) 141 pg/mL Abnormal 15-65 [facility] Comment on above: Performed at: [address] [id number] Director: Junaid Sawyer PhD, Phone: [phone] Phosphorus Level 3.5 mg/dL 2.6-4.7 [facility] Urine Random Creatinine 127.82 mg/dL 20.0 0-300. 00 [facility] Platelet mean volume Auto (B ld) [Entitic vol]on 02-12-2025 Platelet mean volume (Bld) [Entitic vol] Platelet mean volume [Entitic volume] in Blood by Automated count 9.5-13.5 [facility] Platelets Auto (Bld) [#/Vol] on 02-12-2025 Platelets (Bld) [#/Vol] Platelets [#/vol ume] in Blood by Automated count 150-450 [facility] RBC Auto (Bld) [#/Vol]on RBC (Bld) [#/Vol] Erythrocytes [#/volu me] in Blood by Automated count Low 4.20-5.40 [facility] Serum or plasma anion gap de terminationon 02-12-2025 Anion gap [Moles/Vol] Serum or plasma an ion gap determination [facility] Urine protein/creatinine rat ioon 02-12-2025 Protein/Creatinine (U) [Ratio] Urine protein/creatinine ratio [facility] CNOVon 01-05-2025 CNOV Office Visit (LANAFV ) -- CASSI RODRIGEZ ([id number]) 1950 F Date Time Provider Department 01/05/25 12:00 PM SVITLANA MAYFIELD During your visit today, we recorded the following information about you: Pulse Blood pressure Weight Height 86/minute 127/61 86.7 kg 1.575 m Svitlana Mayfield, CONNIE.[employer]ENTER OPERATIONS MANAGER 01/05/2025 12:15 PM Signed Follow-Up Onabotulinum Toxin [...] days/month: 0 (0 headache-free hours) Migraine severity: 710 Patient reduction in overall migraine days: No [...] for migraine Informed Consent Consent Obtained: Written [place] Protocol A moment to CARE was completed [...] applicable Written Consent Obtained: Written LOT #: [id number] Expiration Date: Month: Year: 2026 Second vial: LOT #: [id number] Expiration Date: Month: Year: 2026 Injection Sites Left (Units) Left (Sites) Right (Units) Right (Sites) TOTAL (Units) Customer Support Associate 5 1 5 1 10 Procerus Units: [...] migraine pr (more content not included)... Normal [facility] CNOVon 01-04-2025 CNOV Office Visit (NEEPFV ) -- CASSI RODRIGEZ ([id number]) 1950 F Date Time Provider Department 01/04/25 2:00 PM ALEJANDRO VILLAR NEEPFV During your visit today, we recorded the following information about you: Pulse Blood pressure Weight Height 86/minute 127/61 87 kg 1.575 m Alejandro Villar MD, PhD 01/04/2025 2:17 PM Signed [facility] Patient Name: Cassi Rodrigez Date of : 1950 ESTABLISHED EPILEPSY CLINIC NOTE 01/04/2025 2:00 PM Reason for Visit: Follow Up Clinical Summary: Ms. Rodrigez is a 74 year old right-handed female seen in [facility]. 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 Normal [facility] Alanine aminotransferase [En zymatic activity/volume] in Serum or PlasmaOrdered By: Kristel Low on 11-24-2024 ALT [Catalytic activity/Vol] Alanine aminotransferase [Enzymatic activity/volume] in Serum or Plasma 7-52 [facility] Albumin [Mass/volume] in Ser um or Plasma by Bromocresol green (BCG) dye binding methoOrdered By: Kristel Low on 11-24-2024 Albumin BCG dye [Mass/Vol] Albumin [Mass/volume] in Serum or Plasma by Bromocresol green (BCG) dye binding metho 3.5-5.7 [facility] Alkaline phosphatase [Enzyma tic activity/volume] in Serum or PlasmaOrdered By: Kristel Low on 11-24-2024 ALP [Catalytic activity/Vol] Alkaline phosphatase [Enzymatic activity/volume] in Serum or Plasma High 34-104 [facility] Appearance of UrineOrdered B y: Kristel Low on 11-24-2024 Appearance (U) Urine appearance Clear [facility] Aspartate aminotransferase [ Enzymatic activity/volume] in Serum or PlasmaOrdered By: Kristel Low on 11-24-2024 AST [Catalytic activity/Vol] Aspartate aminotransferase [Enzymatic activity/volume] in Serum or Plasma Low 13-39 [facility] Bacteria [Presence] in Urine by AutomatedOrdered By: Kristel Low on 11-24-2024 Bacteria Auto Ql (U) Bacteria [Presence] in Urine by Automated None Seen [facility] Basophils Auto (Bld) [#/Vol] Ordered By: Kristel Low on 11-24-2024 Basophils (Bld) [#/Vol] Automated basophil count 0.0-0.2 [facility] Basophils/100 WBC Auto (Bld) Ordered By: Kristel Low on 11-24-2024 Basophils/100 WBC (Bld) Automated basophil % . [facility] Bilirubin Test strip Ql (U)O rdered By: Kristel Low on 11-24-2024 Bilirubin Ql (U) Bilirubin.total [Pre sence] in Urine by Test strip Negative [facility] Bilirubin.total [Mass/volume ] in Serum or PlasmaOrdered By: Kristel Low on 11-24-2024 Bilirubin [Mass/Vol] Bilirubin.total [Mass/volume] in Serum or Plasma 0.3-1.0 [facility] Blood Cultureon 11-24-2024 Bacteria identified Cx Nom (Bld) NO GROWTH 5 DAYS PERFORMED BY: [facility] [address] [place] [address] PATHOLOGIST STEEL HANGER LEON MA M.D. Normal [facility] Comment on above: Performed By: #### C MP, PT, PTT, CUBLD, LACTIC, LIPASE, CBC ####[facility] [id number] [place] [address] [facility] Bacteria identified Cx Nom (Bld) NO GROWTH 5 DAYS PERFORMED BY: [facility] [address] [place] [address] PATHOLOGIST STEEL HANGER LEON MA M.D. Normal [facility] Comment on above: Performed By: #### C MP, PT, PTT, CUBLD, LACTIC, LIPASE, CBC #### [facility] C[facility] [address] [place] [id number] [facility] CT abdomen pelvis wo conon 0 11-24-2024 CT abdomen pelvis wo con [facility] Main [place] [address] [place] [address] CT Scan Report Signed Patient: Cassi Rodrigez MR#: [id number] 8 : 1950 Acct:[id number] Age/Sex: 74 / F ADM Date: 11/24/24 Loc: ER Room: Type: [facility] ER Attending Dr: Copies to: Kristel [...] Arnel Simon M.D.11/24/2024 3:48 PM Dictation Location: [place] [address] Transcribed By: [facility] 11/24/24 1548 Dictated By: Arenl Simon II, MD 11/24/24 1538 Signed By: 11/24/24 1548 Normal [facility] Calcium [Mass/volume] in Ser um or PlasmaOrdered By: Kristel Low on 11-24-2024 Calcium [Mass/Vol] Calcium [Mass/volume ] in Serum or Plasma Low 8.6-10.3 [facility] Carbon dioxide, total [Moles /volume] in Serum or PlasmaOrdered By: Kristel oLw on 11-24-2024 CO2 [Moles/Vol] Carbon dioxide, tota l [Moles/volume] in Serum or Plasma 21.0-31.0 [facility] Chloride [Moles/volume] in S akila or PlasmaOrdered By: Kristel Low on 11-24-2024 Chloride [Moles/Vol] Chloride [Moles/vol ume] in Serum or Plasma High 98-107 [facility] Color Auto (U)Ordered By: Oly Low on 11-24-2024 Color (U) Color of Urine by Auto Yellow [facility] Complete Blood Count Auto Di ffon 11-24-2024 Basophils (Bld) [#/Vol] 0.0 10*3/uL Normal 0.0-0.2 [facility] Comment on above: Result Comment: PERF ORMED BY: [facility] [address] [place] [address] PATHOLOGIST STEEL HANGER LEON MA M.D. Performed By: #### C MP, PT, PTT, CUBLD, LACTIC, LIPASE, CBC #### [address] Basophils/100 WBC (Bld) 0.5 % Normal . Galo alas [facility] Comment on above: Performed By: #### C MP, PT, PTT, CUBLD, LACTIC, LIPASE, CBC #### [address] Eosinophils (Bld) [#/Vol] 0.3 10*3/uL Normal 0.0-0.45 [facility] Comment on above: Performed By: #### C MP, PT, PTT, CUBLD, LACTIC, LIPASE, CBC #### [address] Eosinophils/100 WBC (Bld) 5.9 % Normal . [facility] Comment on above: Performed By: #### C MP, PT, PTT, CUBLD, LACTIC, LIPASE, CBC #### [address] Erythrocyte distribution width (RBC) [Ratio] 14.2 % Normal 11.9-15.3 [facility] Comment on above: Performed By: #### C MP, PT, PTT, CUBLD, LACTIC, LIPASE, CBC #### [address] Hematocrit (Bld) [Volume fraction] 28.7 % Low 34.0-46.4 [facility] Comment on above: Performed By: #### C MP, PT, PTT, CUBLD, LACTIC, LIPASE, CBC #### [address] Hemoglobin (Bld) [Mass/Vol] 9.7 g/dL Low 11.8-15.4 [facility] Comment on above: Performed By: #### C MP, PT, PTT, CUBLD, LACTIC, LIPASE, CBC #### [address] Lymphocytes (Bld) [#/Vol] 0.7 10*3/uL Low 1.00-4.8 [facility] Comment on above: Performed By: #### C MP, PT, PTT, CUBLD, LACTIC, LIPASE, CBC #### [address] Lymphocytes/100 WBC (Bld) 13.8 % Normal . [facility] Comment on above: Performed By: #### C MP, PT, PTT, CUBLD, LACTIC, LIPASE, CBC #### [address] MCH (RBC) [Entitic mass] 32.2 pg Normal 24.7-34.3 [facility] Comment on above: Performed By: #### C MP, PT, PTT, CUBLD, LACTIC, LIPASE, CBC #### [address] MCV (RBC) [Entitic vol] 95.4 fL Normal 80-100 [facility] Comment on above: Performed By: #### C MP, PT, PTT, CUBLD, LACTIC, LIPASE, CBC #### [address] Mean Corpuscular HGB Conc 33.8 g/dL Normal 32.0-35.0 [facility] Comment on above: Performed By: #### C MP, PT, PTT, CUBLD, LACTIC, LIPASE, CBC #### [address] Monocytes (Bld) [#/Vol] 0.4 10*3/uL Normal 0.0-0.8 [facility] Comment on above: Performed By: #### C MP, PT, PTT, CUBLD, LACTIC, LIPASE, CBC #### [address] Monocytes/100 WBC (Bld) 19.31 % Normal 0.00-20.00 [facility] Comment on above: Performed By: #### C MP, PT, PTT, CUBLD, LACTIC, LIPASE, CBC #### [address] Monocytes/100 WBC (Bld) 7.8 % Normal . [facility] Comment on above: Performed By: #### C MP, PT, PTT, CUBLD, LACTIC, LIPASE, CBC #### [address] Neutrophils (Bld) [#/Vol] 3.7 10*3/uL Normal 1.8-7.7 [facility] Comment on above: Performed By: #### C MP, PT, PTT, CUBLD, LACTIC, LIPASE, CBC #### [address] Neutrophils/100 WBC (Bld) 72.0 % Normal . [facility] Comment on above: Performed By: #### C MP, PT, PTT, CUBLD, LACTIC, LIPASE, CBC #### [address] NRBC% 0.1 /100{WBC} Normal 0-0.5 [facility] Comment on above: Performed By: #### C MP, PT, PTT, CUBLD, LACTIC, LIPASE, CBC #### [address] Platelet mean volume (Bld) [Entitic vol] 7.2 fL Normal 6.3-10.7 [facility] Comment on above: Performed By: #### C MP, PT, PTT, CUBLD, LACTIC, LIPASE, CBC #### [address] Platelets (Bld) [#/Vol] 286 10*3/uL Normal 150-450 [facility] Comment on above: Performed By: #### C MP, PT, PTT, CUBLD, LACTIC, LIPASE, CBC #### [place] [address] [place] RBC (Bld) [#/Vol] 3.01 10*6/uL Low 3.60-5.00 [facility] Comment on above: Performed By: #### C MP, PT, PTT, CUBLD, LACTIC, LIPASE, CBC #### [address] WBC (Bld) [#/Vol] 5.1 10*3/uL Normal 3.8-11.6 [facility] Comment on above: Performed By: #### C MP, PT, PTT, CUBLD, LACTIC, LIPASE, CBC #### [address] Comprehensive Metabolic Pane daisha 11-24-2024 Albumin [Mass/Vol] 3.6 g/dL Normal 3.5-5.7 [facility] Comment on above: Performed By: #### C MP, PT, PTT, CUBLD, LACTIC, LIPASE, CBC #### [address] Albumin/Globulin [Mass ratio] 1.4 {ratio} Normal [facility] Comment on above: Performed By: #### C MP, PT, PTT, CUBLD, LACTIC, LIPASE, CBC #### [address] ALP [Catalytic activity/Vol] 174 U/L High 34-104 [facility] Comment on above: Performed By: #### C MP, PT, PTT, CUBLD, LACTIC, LIPASE, CBC #### [address] ALT [Catalytic activity/Vol] 8 U/L Normal 7-52 [facility] Comment on above: Performed By: #### C MP, PT, PTT, CUBLD, LACTIC, LIPASE, CBC #### [address] Anion gap [Moles/Vol] 9.7 mmol/L Normal 6.0-15.0 [facility] Comment on above: Performed By: #### C MP, PT, PTT, CUBLD, LACTIC, LIPASE, CBC #### [address] AST [Catalytic activity/Vol] 12 U/L Low 13-39 [facility] Comment on above: Performed By: #### C MP, PT, PTT, CUBLD, LACTIC, LIPASE, CBC #### [address] Bilirubin [Mass/Vol] 0.7 mg/dL Normal 0.3-1.0 [facility] Comment on above: Performed By: #### C MP, PT, PTT, CUBLD, LACTIC, LIPASE, CBC #### [address] Calcium [Mass/Vol] 8.5 mg/dL Low 8.6-10.3 [facility] Comment on above: Performed By: #### C MP, PT, PTT, CUBLD, LACTIC, LIPASE, CBC #### [address] Chloride [Moles/Vol] 111 mmol/L High 98-107 [facility] Comment on above: Performed By: #### C MP, PT, PTT, CUBLD, LACTIC, LIPASE, CBC #### [address] CO2 [Moles/Vol] 23.6 mmol/L Normal 21.0-31.0 [facility] Comment on above: Performed By: #### C MP, PT, PTT, CUBLD, LACTIC, LIPASE, CBC #### [address] Creatinine [Mass/Vol] 1.66 mg/dL High 0.60-1.20 [facility] Comment on above: Performed By: #### C MP, PT, PTT, CUBLD, LACTIC, LIPASE, CBC #### [address] Creatinine Clr Calc Pharmacy 30.82 Normal [facility] Comment on above: Performed By: #### C MP, PT, PTT, CUBLD, LACTIC, LIPASE, CBC #### [address] Estimated GFR 32.179 mL/Min Normal [facility] Comment on above: Performed By: #### C MP, PT, PTT, CUBLD, LACTIC, LIPASE, CBC #### [address] Globulin (S) [Mass/Vol] 2.6 g/dL Normal T he [facility] Comment on above: Performed By: #### C MP, PT, PTT, CUBLD, LACTIC, LIPASE, CBC #### [address] Glucose [Mass/Vol] 99 mg/dL Normal 70-100 [facility] Comment on above: Result Comment: Formerly named [facility] Glucose Reference Range is dependent on time and content of last meal. Glucose of more than 200 mg/dL in a nonstressed, ambulatory subject supports the diagnosis of Diabetes Mellitus. ADA recommended reference range Performed By: #### C MP, PT, PTT, CUBLD, LACTIC, LIPASE, CBC #### [address] Potassium [Moles/Vol] 4.3 mmol/L Normal 3.5-5.1 [facility] Comment on above: Performed By: #### C MP, PT, PTT, CUBLD, LACTIC, LIPASE, CBC #### [address] Protein [Mass/Vol] 6.2 g/dL Low 6.4-8.9 [facility] Comment on above: Performed By: #### C MP, PT, PTT, CUBLD, LACTIC, LIPASE, CBC #### [address] Sodium [Moles/Vol] 140 mmol/L Normal 136-145 [facility] Comment on above: Performed By: #### C MP, PT, PTT, CUBLD, LACTIC, LIPASE, CBC #### [address] Urea nitrogen [Mass/Vol] 24 mg/dL Normal 7-25 [facility] Comment on above: Performed By: #### C MP, PT, PTT, CUBLD, LACTIC, LIPASE, CBC #### [address] Creatinine [Mass/volume] in Serum or PlasmaOrdered By: Kristel Low on 11-24-2024 Creatinine [Mass/Vol] Creatinine [Mass/v olume] in Serum or Plasma High 0.60-1.20 [facility] Dipstick and Microscopicon 0 11-24-2024 Appearance (U) Clear Normal Clear [facility] Comment on above: Order Comment: Name Collection Type:: Clean-Voided Midstream Performed By: #### A DDONUAPLUS #### [address] Bacteria,Urine None Seen Normal None Seen [facility] Comment on above: Order Comment: Name Collection Type:: Clean-Voided Midstream Performed By: #### A DDONUAPLUS #### [place] [address] [place] Bilirubin,Urine Negative Normal Negative [facility] Comment on above: Order Comment: Name Collection Type:: Clean-Voided Midstream Performed By: #### A DDONUAPLUS #### [address] Color (U) Light-Yellow Normal Yellow [facility] Comment on above: Order Comment: Name Collection Type:: Clean-Voided Midstream Performed By: #### A DDONUAPLUS #### [address] Glucose Ql (U) Normal Normal Normal [facility] Comment on above: Order Comment: Name Collection Type:: Clean-Voided Midstream Performed By: #### A DDONUAPLUS #### [place] [address] [place] Hyaline Casts,Urine 0 [LPF] Normal 0-8 [facility] Comment on above: Order Comment: Name Collection Type:: Clean-Voided Midstream Performed By: #### A DDONUAPLUS #### [place] [address] [place] Ketones Ql (U) Negative Normal Negative [facility] Comment on above: Order Comment: Name Collection Type:: Clean-Voided Midstream Performed By: #### A DDONUAPLUS #### [address] Leukocyte esterase Test strip Ql (U) 1+ High Negative [facility] Comment on above: Order Comment: Name Collection Type:: Clean-Voided Midstream Performed By: #### A DDONUAPLUS #### [place] [address] [place] Mucus,Urine Rare Normal [facility] Comment on above: Order Comment: Name Collection Type:: Clean-Voided Midstream Result Comment: PERF ORMED BY: [place] [address] PATHOLOGIST STEEL HANGER LEON MA M.D. Performed By: #### A DDONUAPLUS #### [address] Nitrite,Urine Negative Normal Negative [facility] Comment on above: Order Comment: Name Collection Type:: Clean-Voided Midstream Performed By: #### A DDONUAPLUS #### [address] Occult Blood,Urine Negative Normal Negative [facility] Comment on above: Order Comment: Name Collection Type:: Clean-Voided Midstream Result Comment: PERF ORMED BY: [place] [address] PATHOLOGIST STEEL HANGER LEON MA M.D. Performed By: #### A DDONUAPLUS #### [address] pH (U) 5.5 [pH] Normal 5.0-9.0 [facility] Comment on above: Order Comment: Name Collection Type:: Clean-Voided Midstream Performed By: #### A DDONUAPLUS #### [address] Protein,Urine Negative Normal Negative [facility] Comment on above: Order Comment: Name Collection Type:: Clean-Voided Midstream Performed By: #### A DDONUAPLUS #### [address] RBC,Urine 1 [HPF] Normal 0-4 [facility] Comment on above: Order Comment: Name Collection Type:: Clean-Voided Midstream Performed By: #### A DDONUAPLUS #### [address] [place] [address] [place] Specific[place],Urine 1.020 Normal 1.00 1-1.03 0 [facility] Comment on above: Order Comment: Name Collection Type:: Clean-Voided Midstream Performed By: #### A DDONUAPLUS #### [facility] [address] [place] [address] Squamous Epithelial Cell,Urine 3 [HPF] High 0-2 [facility] Comment on above: Order Comment: Name Collection Type:: Clean-Voided Midstream Performed By: #### A DDONUAPLUS #### [address] Urobilinogen,Urine Normal Normal Normal [facility] Comment on above: Order Comment: Name Collection Type:: Clean-Voided Midstream Performed By: #### A DDONUAPLUS #### [address] WBC,Urine 1 [HPF] Normal 0-4 [facility] Comment on above: Order Comment: Name Collection Type:: Clean-Voided Midstream Performed By: #### A DDONUAPLUS #### [address] Eosinophils Auto (Bld) [#/Vo l]Ordered By: Kristel Low on 11-24-2024 Eosinophils (Bld) [#/Vol] Automated eosinophil count 0.0-0.45 [facility] Eosinophils/100 WBC Auto (Bl d)Ordered By: Kristel Low on 11-24-2024 Eosinophils/100 WBC (Bld) Automated eosinophil % . [facility] Epithelial cells.squamous [# /area] in Urine sediment by Automated countOrdered By: Kristel Low on 11-24-2024 Epithelial cells.squamous Auto (Urine sed) [#/Area] Epithelial cells.squamous [#/area] in Urine sediment by Automated count High 0-2 [facility] Erythrocyte distribution wid th Auto (RBC) [Ratio]Ordered By: Kristel Low on 11-24-2024 Erythrocyte distribution width (RBC) [Ratio] Erythrocyte distribution width [Ratio] by Automated count 11.9-15.3 [facility] Erythrocytes [#/area] in Uri ne sediment by Automated countOrdered By: Kristel Low on 11-24-2024 RBC Auto (Urine sed) [#/Area] Erythrocytes [#/area] in Urine sediment by Automated count 0-4 [facility] Globulin Calc (S) [Mass/Vol] Ordered By: Kristel Low on 11-24-2024 Globulin (S) [Mass/Vol] Serum globulin m easurement by calculation (mass/volume) [facility] Glucose [Mass/volume] in Ser um or PlasmaOrdered By: Kristel Low on 11-24-2024 Glucose [Mass/Vol] Glucose [Mass/volume ] in Serum or Plasma 70-100 [facility] Comment on above: ADA recommended refe rence rangeRandom Glucose Reference Range is dependent on time and content of last meal. Glucose of more than 200 mg/dL in a nonstressed, ambulatory subject supports the diagnosis of Diabetes Mellitus. Glucose [Mass/volume] in Uri ne by Test stripOrdered By: Kristel Low on 11-24-2024 Glucose Test strip (U) [Mass/Vol] Glucose [Mass/volume] in Urine by Test strip Normal [facility] Hematocrit Auto (Bld) [Volum e fraction]Ordered By: Kristel Low on 11-24-2024 Hematocrit (Bld) [Volume fraction] Hematocrit [Volume Fraction] of Blood by Automated count Low 34.0-46.4 [facility] Hemoglobin Test strip Ql (U) Ordered By: Kristel Low on 11-24-2024 Hemoglobin Ql (U) Hemoglobin [Presence ] in Urine by Test strip Negative [facility] Hemoglobin [Mass/volume] in BloodOrdered By: Kristel Low on 11-24-2024 Hemoglobin (Bld) [Mass/Vol] Hemoglobin [Mass/volume] in Blood Low 11.8-15.4 [facility] Hyaline casts [#/area] in Ur ine sediment by Automated countOrdered By: Kristel Low on 11-24-2024 Hyaline casts Auto (Urine sed) [#/Area] Hyaline casts [#/area] in Urine sediment by Automated count 0-8 [facility] INR in Platelet poor plasma by Coagulation assayOrdered By: Kristel Low on 11-24-2024 INR Coag (PPP) [Relative time] INR in Platelet poor plasma by Coagulation assay [facility] Comment on above: INR Therapeutic Rang e [...] Ketones Test strip Ql (U)Ord ered By: Kristelvivi Low on 11-24-2024 Ketones Ql (U) Ketones [Presence] i n Urine by Test strip Negative [facility] Laboratory - Microbiology an d Antimicrobial susceptibilityOrdered By: Kristel Low on 11-24-2024 Bacteria identified Cx Nom (Bld) NO GROWTH 5 DAYS [facility] Bacteria identified Cx Nom (Bld) NO GROWTH 5 DAYS [facility] Bacteria identified Cx Nom (Bld) NO GROWTH 5 DAYS [facility] Bacteria identified Cx Nom (Bld) NO GROWTH 5 DAYS [facility] Lactate [Moles/volume] in Se rum or PlasmaOrdered By: Kristel Low on 11-24-2024 Lactate [Moles/Vol] Lactate [Moles/volum e] in Serum or Plasma 0.5-2.2 [facility] Lactic Acidon 11-24-2024 Lactate [Moles/Vol] 0.8 mmol/L Normal 0.5-2.2 [facility] Comment on above: Result Comment: PERF ORMED BY: [facility] [address] [place] [address] PATHOLOGIST STEEL HANGER LEON MA M.D. Performed By: #### C MP, PT, PTT, CUBLD, LACTIC, LIPASE, CBC #### [address] Leukocyte esterase [Presence ] in Urine by Test stripOrdered By: Kristel Low on 11-24-2024 Leukocyte esterase Test strip Ql (U) Leukocyte esterase [Presence] in Urine by Test strip High Negative [facility] Leukocytes [#/area] in Urine sediment by Automated countOrdered By: Kristel Low on 11-24-2024 WBC Auto (Urine sed) [#/Area] Leukocytes [#/area] in Urine sediment by Automated count 0-4 [facility] Leukocytes [#/volume] correc tanesha for nucleated erythrocytes in Blood by Automated counOrdered By: Kristel Low on 11-24-2024 WBC corrected for nucl RBC Auto (Bld) [#/Vol] Leukocytes [#/volume] corrected for nucleated erythrocytes in Blood by Automated coun 3.8-11.6 [facility] Lipaseon 11-24-2024 Lipase [Catalytic activity/Vol] 10.0 U/L Low 11.0-82.0 [facility] Comment on above: Result Comment: PERF ORMED BY: [place] [address] PATHOLOGIST STEEL HANGER LEON MA M.D. Performed By: #### C MP, PT, PTT, CUBLD, LACTIC, LIPASE, CBC #### [address] Lipase [Enzymatic activity/v olume] in Serum or PlasmaOrdered By: Kristel Low on 11-24-2024 Lipase [Catalytic activity/Vol] Lipase [Enzymatic activity/volume] in Serum or Plasma Low 11.0-82.0 [facility] Lymphocytes Auto (Bld) [#/Vo l]Ordered By: Kristel Low on 11-24-2024 Lymphocytes (Bld) [#/Vol] Lymphocytes [#/volume] in Blood by Automated count Low 1.00-4.8 [facility] Lymphocytes/100 WBC Auto (Bl d)Ordered By: Kristel Low on 11-24-2024 Lymphocytes/100 WBC (Bld) Lymphocytes/100 leukocytes in Blood by Automated count . [facility] MCH Auto (RBC) [Entitic mass ]Ordered By: Kristel Low on 11-24-2024 MCH (RBC) [Entitic mass] MCH [Entitic mass] by Automated count 24.7-34.3 [facility] MCHC Auto (RBC) [Mass/Vol]Or dered By: Kristel Low on 11-24-2024 MCHC (RBC) [Mass/Vol] MCHC [Mass/volume] by Automated count 32.0-35.0 [facility] MCV Auto (RBC) [Entitic vol] Ordered By: Kristel Low on 11-24-2024 MCV (RBC) [Entitic vol] MCV [Entitic vol ume] by Automated count 80-100 [facility] Monocyte distribution width [Entitic volume] in Blood by AutomatedOrdered By: Kristel Low on 11-24-2024 Monocyte distribution width Auto (Bld) [Entitic vol] Monocyte distribution width [Entitic volume] in Blood by Automated 0.00-20.00 [facility] Monocytes Auto (Bld) [#/Vol] Ordered By: Kristel Low on 11-24-2024 Monocytes (Bld) [#/Vol] Automated blood monocyte count 0.0-0.8 [facility] Monocytes/100 WBC Auto (Bld) Ordered By: Kristel Low on 11-24-2024 Monocytes/100 WBC (Bld) Automated monocyte % . [facility] Mucus [Presence] in Urine by AutomatedOrdered By: Kristel Low on 11-24-2024 Mucus Auto Ql (U) Mucus [Presence] in Urine by Automated [facility] Neutrophils Auto (Bld) [#/Vo l]Ordered By: Kristel Low on 11-24-2024 Neutrophils (Bld) [#/Vol] Neutrophils [#/volume] in Blood by Automated count 1.8-7.7 [facility] Neutrophils/100 WBC Auto (Bl d)Ordered By: Kristel Low on 11-24-2024 Neutrophils/100 WBC (Bld) Automated neutrophil % . [facility] Nitrite Test strip Ql (U)Ord ered By: Kristel Low on 11-24-2024 Nitrite Ql (U) Nitrite [Presence] i n Urine by Test strip Negative [facility] No Panel InformationOrdered By: Kristel Low on 11-24-2024 Estimated GFR (CKD-EPI) 32.179 mL/Min [facility] Pharmacy Creatinine Clearance (Chem 30.82 [facility] Nucleated erythrocytes [Pres ence] in Blood by Automated countOrdered By: Kristel Low on 11-24-2024 Nucleated RBC Auto Ql (Bld) Nucleated erythrocytes [Presence] in Blood by Automated count 0-0.5 [facility] Partial Thromboplastin Timeo n 11-24-2024 aPTT Coag (Bld) [Time] 33.5 s Normal 25.1-36.5 [facility] e [facility] Comment on above: Result Comment: A he matocrit value greater than 55% may lead to inaccurate results in coagulation testing. Patients having hematocrit values >55% require a special collection tube for coagulation studies. Please contact the laboratory at [phone] for redraw instructions. PERFORMED BY: [place] [address] PATHOLOGIST STEEL HANGER LEON MA M.D. Performed By: #### C MP, PT, PTT, CUBLD, LACTIC, LIPASE, CBC #### [address] Platelet mean volume Auto (B ld) [Entitic vol]Ordered By: Kristel Low on 11-24-2024 Platelet mean volume (Bld) [Entitic vol] Platelet mean volume [Entitic volume] in Blood by Automated count 6.3-10.7 [facility] Platelets Auto (Bld) [#/Vol] Ordered By: Kristel Low on 11-24-2024 Platelets (Bld) [#/Vol] Platelets [#/vol ume] in Blood by Automated count 150-450 [facility] Potassium [Moles/volume] in Serum or PlasmaOrdered By: Kristel Low on 11-24-2024 Potassium [Moles/Vol] Potassium [Moles/v olume] in Serum or Plasma 3.5-5.1 [facility] Protein Test strip (U) [Mass /Vol]Ordered By: Kristel Low on 11-24-2024 Protein (U) [Mass/Vol] Protein [Mass/vol ume] in Urine by Test strip Negative [facility] Protein [Mass/volume] in Ser um or PlasmaOrdered By: Kristel Low on 11-24-2024 Protein [Mass/Vol] Protein [Mass/volume ] in Serum or Plasma Low 6.4-8.9 [facility] Prothrombin Time INRon 11-24 INR Coag (PPP) [Relative time] 2.0 {INR} Normal [facility] Comment on above: [...] PT, PTT, CUBLD, LACTIC, LIPASE, CBC #### [facility] [address] PT Coag (PPP) [Time] 22.8 s High 9.0-12.9 [facility] Comment on above: Result Comment: A he matocrit value greater than 55% may lead to inaccurate results in coagulation testing. Patients having hematocrit values >55% require a special collection tube for coagulation studies. Please contact the laboratory at [phone] for redraw instructions. Performed By: #### C MP, PT, PTT, CUBLD, LACTIC, LIPASE, CBC #### [facility] [address] Prothrombin time (PT)Ordered By: Kristel Low on 11-24-2024 PT Coag (PPP) [Time] Prothrombin time (PT) High 9.0- 12.9 [facility] Comment on above: A hematocrit value g reater than 55% may lead to inaccurate results in coagulation testing. Patients having hematocrit values >55% require a special collection tube for coagulation studies. Please contact the laboratory at [phone] for redraw instructions. RBC Auto (Bld) [#/Vol]Ordere d By: Kristel Low on 11-24-2024 RBC (Bld) [#/Vol] Erythrocytes [#/volu me] in Blood by Automated count Low 3.60-5.00 [facility] Serum or plasma albumin/glob ulin mass ratioOrdered By: Kristel Low on 11-24-2024 Albumin/Globulin [Mass ratio] Serum or plasma albumin/globulin mass ratio [facility] Serum or plasma anion gap de terminationOrdered By: Kristel Low on 11-24-2024 Anion gap [Moles/Vol] Serum or plasma an ion gap determination 6.0-15.0 [facility] Sodium [Moles/volume] in Ser um or PlasmaOrdered By: Kristel Low on 11-24-2024 Sodium [Moles/Vol] Sodium [Moles/volume ] in Serum or Plasma 136-145 [facility] Specific gravity Test strip (U) [Rel density]Ordered By: Kristel Low on 11-24-2024 Specific gravity (U) [Rel density] Specific gravity of Urine by Test strip 1.001-1.03 0 [facility] Urea nitrogen [Mass/volume] in Serum or PlasmaOrdered By: Kristel Low 11-24-2024 Urea nitrogen [Mass/Vol] Urea nitrogen [Mass/volume] in Serum or Plasma 7-25 [facility] Urobilinogen Test strip (U) [Mass/Vol]Ordered By: Kristel Low 11-24-2024 Urobilinogen (U) [Mass/Vol] Urobilinogen [Mass/volume] in Urine by Test strip Normal [facility] WBC Auto (Bld) [#/Vol]Ordere d By: Kristel Low 11-24-2024 WBC (Bld) [#/Vol] Leukocytes [#/volume ] in Blood by Automated count 3.8-11.6 [facility] aPTT in Platelet poor plasma by Coagulation assayOrdered By: Kristel Low 11-24-2024 aPTT Coag (PPP) [Time] Activated partial thromboplastin time (aPTT) in platelet poor plasma by coagulation a 25.1-36.5 [facility] Comment on above: A hematocrit value g reater than 55% may lead to inaccurate results in coagulation testing. Patients having hematocrit values >55% require a special collection tube for coagulation studies. Please contact the laboratory at [phone] for redraw instructions. pH Test strip (U)Ordered By: Kristel Low on 11-24-2024 pH (U) pH of Urine by Test strip 5.0-9.0 [facility] Ionized Calciumon 11-06-2024 Calcium.ionized ISE [Mass/Vol] 4.5 mg/dL Invalid Interpretation Code 4.5-5.[address] [facility] Comment on above: Result Comment: Perf ormed at: [facility] [address] [id number] PhD Digna Quiroga Performed By: #### 2 [id number] #### [facility] [address] [place] [address] Main OR Intraoperative Recor don 11-06-2024 Main OR Intraoperative Record Main OR Intraoperative Record IntraOp Document Type FT Summary Primary Physician: Shashi De Souza MD Finalized Date/Time: 11/06/24 08:14:44 Pt. Name: CASSI RODRIGEZ/Sex: 1950 Female Med Rec #: [id number] Physician: Shashi De Souza MD Financial #: [id number] Pt. Type: O Room/Bed: [place] [address] Admit/Disch: 11/02/24 10:13:03 - 11/03/24 15:25:00 Institution: [...] De Souza MD, Renetta Topete Role Performed CARLOS ALBERTO Surgeon - Primary Ambulatory Care Nurse - Primary Time In 11/02/24 14:07:00 11/02/24 [...] Katy Eastman Role Performed Scrub - Primary BULK [employer]ER [employer] Delivery Counselor Time In 11/02/24 14:07:00 11/02/24 14:07:00 11/02/24 14:07:00 Time Out 11/02/24 15:48:00 11/02/24 15:48:00 11/02/24 15:48:00 Procedure LUMBAR LAMINECTOMY LUMBAR LAMINECTOMY LUMBAR LAMINECTOMY POSS. FUSION(.) POSS. FUSION(.) POSS. FUSION(.) Comments Last Modified By: Renetta Melendez Kelsie E Burgderfer, Kelsie E 11/02/24 15:51:39 11/02/24 15:51:39 11/02/24 15:51:39 Entry 7 Entry 8 Case Attendee Jin Presley Ii, Robert David Role Performed Staff - Other Anesthesiologist Business Unit Director Time In 11/02/24 14:07:00 11/02/24 14:53:00 Time [...] Yes sciati (more content not included)... Normal [facility] BMPon 11-03-2024 Anion gap [Moles/Vol] 8 mmol/L Normal 6-16 [facility] Comment on above: Performed By: #### 2 [id number] #### [facility] [address] [place] [address] Calcium [Mass/Vol] 8.0 mg/dL Low 8.9-11.[address] [facility] Comment on above: Performed By: #### 2 [id number] #### [facility] [address] [place] [address] Chloride [Moles/Vol] 110 mmol/L Normal 101-111 [facility] Comment on above: Performed By: #### 2 [id number] #### [facility] [address] [place] [address] CO2 [Moles/Vol] 24 mmol/L Normal 21-[address] [facility] Comment on above: Performed By: #### 2 [id number] #### [facility] [address] [place] [address] Creatinine [Mass/Vol] 1.6 mg/dL High 0.5-1.3 [facility] Comment on above: Performed By: #### 2 [id number] #### [facility] [address] [place] [address] Glucose [Mass/Vol] 106 mg/dL Normal 55-[address] [facility] Comment on above: Performed By: #### 2 [id number] #### [facility] [address] [place] [address] Potassium [Moles/Vol] 4.1 mmol/L Normal 3.5-5.3 [facility] Comment on above: Performed By: #### 2 [id number] #### [facility] [address] [place] [address] Sodium [Moles/Vol] 138 mmol/L Normal 135-[address] [facility] Comment on above: Performed By: #### 2 [id number] #### [facility] [address] [place] [address] Urea nitrogen [Mass/Vol] 20 mg/dL Normal 5-[address] [facility] Comment on above: Performed By: #### 2 [id number] #### [facility] [address] [place] [address] Urea nitrogen/Creatinine [Mass ratio] 12 No Units Normal 10-[address] [facility] Comment on above: Performed By: #### 2 [id number] #### [facility] [address] [place] [address] CBC w/Indiceson 11-03-2024 Erythrocyte distribution width (RBC) [Ratio] 14.4 % High 10.9-14.[address] [facility] Comment on above: Performed By: #### 2 [id number] #### [facility] [address] [place] [address] Hematocrit (Bld) [Volume fraction] 35.4 % Normal 34.0-46.[address] [facility] Comment on above: Performed By: #### 2 [id number] #### [facility] [address] [place] [address] Hemoglobin (Bld) [Mass/Vol] 11.9 g/dL Low 12.0-16.[address] [facility] Comment on above: Performed By: #### 2 [id number] #### [facility] [address] [place] [address] MCH (RBC) [Entitic mass] 31.9 pg Normal 27.0-34.[address] [facility] Comment on above: Performed By: #### 2 [id number] #### [facility] [address] [place] [address] MCHC (RBC) [Mass/Vol] 33.7 g/dL Normal 31.4-36.0 [facility] Comment on above: Performed By: #### 2 [id number] #### [facility] [address] [place] [address] MCV (RBC) [Entitic vol] 94.5 fL Normal 80.0-100.0 [facility] Comment on above: Performed By: #### 2 [id number] #### [facility] [address] [place] [address] Platelet mean volume (Bld) [Entitic vol] 7.4 fL Normal 6.4-10.[address] [facility] Comment on above: Performed By: #### 2 [id number] #### [facility] [address] [place] [address] Platelets (Bld) [#/Vol] 183.0 E9/L Normal 150. 0-500. [address] [facility] Comment on above: Performed By: #### 2 [id number] #### [facility] [address] [place] [address] RBC (Bld) [#/Vol] 3.7 E12/L Low 4.3-5.[address] [facility] Comment on above: Performed By: #### 2 [id number] #### [facility] [address] [place] [address] RBC size Nom (Bld) NORMAL Invalid Interpretation Code [facility] Comment on above: Performed By: #### 2 [id number] #### [facility] [address] [place] [address] WBC corrected for nucl RBC Auto (Bld) [#/Vol] 5.4 E9/L Normal 4.0-11.[address] [facility] Comment on above: Performed By: #### 2 [id number] #### [facility] [address] [place] [address] CHEMISTRYOrdered By: SYSTEM SYSTEM on 11-03-2024 Anion [...] Remisol Chem Discharge Note-Nursingon Discharge Note-Nursing Discharge Note-Nu rsing CASSI RODRIGEZ :1950 Visit Date:11/02/2024 Inpatient Discharge Instructions Your Care Team Admitting Physician - Shashi De Souza MD Consulting Physician - Dar NUNEZ MD Referring Physician - Shashi De [...] time unless symptoms worsen. Where: [address] [place] [address]- Business (1) Follow Up with Shashi De Souza When: Comments: f/[id number] ok shower and remove dressing [id number] no lift>5lbs keep incis dry clean. restart coumadin 3 days after surgery. 11-05-Wednesday. Where: [address] [facility], [address] [place] [address]- [phone] Business (1) Medications What How Much When Why Instructions Next Dose New acetaminophen-oxycodone (Percocet 5 mg-325 mg oral tablet) 1 Tablets By Mouth 3 times a day as needed for Pain 4-7 Lumbar stenosis Duration: 7 Days Pickup at [facility]/pharmacy #[id number] as needed for pain Changed warfarin (warfarin [...] (at bedtime) 11/03 @ 9pm Pharmacy Information [facility]/pharmacy #[id number]: [address], [place] [id number] [phone] Test Results CBC BMP WBC: 5.4 E9/L [...] Education Materials (more content not included)... Normal [facility] HEMATOLOGYOrdered By: SYSTEM SYSTEM on 11-03-2024 [...] Robb e Manageron 11-03-2024 Interdisciplinary Note - Jde Developer Interdisciplinary Note - Jde Developer CRM to room 303 Patient is awake, [...] contact, white board updated. CRM following Normal [facility] Comment on above: Result Comment: Elec tronically Signed By: Christal Chapman\.br\Date and Time Signed: 11/03/24 10:51 EST Interdisciplinary Note - Gila n 11-03-2024 Interdisciplinary Note - OT Interdisciplinary Note - OT Ot [facility] six clicks score = no further OT needs. Patient is modified Ind w/ LE self care after instruction, Sup with transfers w/ fww. Pt has spouse support at home and will be safe to return home when medically stable. Pt has all necessary bathroom dme already in place. Normal [facility] Magnesiumon 11-03-2024 Magnesium [Mass/Vol] 1.8 mg/dL Normal 1.3-2.4 [facility] Comment on above: Performed By: #### 2 [id number] #### [facility] [address] [place] [address] Phosphoruson 11-03-2024 Phosphate [Mass/Vol] 3.1 mg/dL Normal 1.9-4.6 [facility] Comment on above: Performed By: #### 2 [id number] #### [facility] [address] [place] [address] XR Spine Single View Specify Levelon 11-03-2024 [...] [place] Technologist: CHANTALE Technical Comments Radiation Dose: ted Sweeney in mGy = 23.48 DAP = na Fluoro Time: 26 seconds Normal [facility] eGFRon 11-03-2024 eGFR 33 mL/min/1.73 m2 Low >=[address] [facility] Comment on above: Performed By: #### 1 [id number] #### [facility] [address] [place] [address] ABO/Rhon 11-02-2024 ABO/Rh Positive Invalid Interpretation Code [facility] Comment on above: Performed By: #### 2 [id number] #### [facility] [address] [place] [address] ABO/Rh History Checkon 11-02 ABO/Rh History Check Verified Hx Blood Type Normal [facility] Comment on above: Performed By: #### 1 [id number] #### [facility] [address] [place] [address] ABSCon 11-02-2024 ABSC Gel Interp Negative Normal [facility] Comment on above: Performed By: #### 1 [id number] #### [facility] [address] [place] [address] BLOOD BANKOrdered By: Ericka Srinivasan on 11-02-2024 ABO/Rh Interp Positive Invalid Interpretation Code [facility] BB Subsection ABSC Gel Interp Negative (11/02/24 11:08 AM) Normal [facility] BB Subsection Blood Bank ID#on 11-02-2024 BBID# [id number] Invalid Interpretation Code [facility] Comment on above: Performed By: #### 1 [id number] #### [facility] [address] [place] [address] COAGULATIONOrdered By: Krish Srinivasan on 11-02-2024 aPTT Coag (PPP) [Time] 43.4 s High 25.1 - 36.5 second(s) [facility] Auto Coag Comment on above: Interpretive Data: P arameter 15 days - 4 weeks 1 - 5 months 6 - 11 months 1 - 5 years 6 - 10 years 11 - 17 years PTT Mean: 35.4 (27.6-45.6) Mean: 33.5 (24.8-40.7) Mean: 32.4 (25.1-40.7) Mean: 31.6 (24.0-39.2) Mean: 31.6 (26.9-38.7) Mean: 31.0 (24.6-38.4) Pediatric Reference ranges were obtained from a study by clay Yuan alMavis prepared from 1437 samples obtained at 7 different centers using the same coagulation reagent and instrumentation as [facility]. Currently there are no coagulation studies available worldwide for children to 14 days, and no normal ranges. Heparin therapeutic range (represented by Anti-Factor Xa activity of 0.2 - 0.4 U/mL) corresponds to PTT of 56.6 - 109.0 sec. INR Coag (PPP) [Relative time] 1.26 {INR} Invalid Interpretation Code [facility] Auto Coag Comment on above: Interpretive Data: I NR results are specifically intended to assess patients stabilized on long-term Anticoagulation therapy suggested INR s Less Intensive Anticoagulation 2.0 3.0 Conventional Range 3.0 4.5 PT Coag (PPP) [Time] 14.1 s High 9.4 - 1 2.5 second(s) [facility] Auto Coag Comment on above: Interpretive Data: 1 5 days - 4 weeks 1 - 5 months 6 -11 months 1 5 years 6 10 years 11 -17 years Mean: 11.2 (9.5 12.6) Mean: 11.0 (9.7 12.8) Mean: 11.0 (9.8 13.0) Mean: 11.3 (9.9 13.4) Mean: 11.7 (10.0 14.6) Mean: 11.8 (10.0 - 14.1) Pediatric Reference ranges were obtained from a study by clay Yuan alMavis prepared from 1437 samples obtained at 7 different centers using the same coagulation reagent and instrumentation as [facility]. Currently there are no coagulation studies available worldwide for children to 14 days, and no normal ranges. Inpatient Patient Summaryon 11-02-2024 Inpatient Patient Summary Inpatient Patient Summary [address] [address] [facility] Clinical Discharge Instructions PERSON INFORMATION Name: CASSI RODRIGEZ PHYSICIANS Admitting Physician: Shashi De Souza MD Attending Physician: Shashi De Souza MD PCP: BRODERICK HOWARD DO Discharge Diagnosis: Comment: PATIENT EDUCATION INFORMATION Instructions: Medication Leaflets: Follow up: With: Address: When: Shashi De Souza [address] [facility], [address] [place] [id number] [phone] Business (1) Comments: f/u3wks ok shower and remove dressing [id number] no lift>5lbs keep incis dry clean. restart coumadin 3 days after surgery. 11-05-Wednesday. MEDICATION LIST New Medications [id number], [address], [place] [id number], [phone] acetaminophen-oxycodone (Percocet 5 mg-325 mg oral tablet) [...] takes 6 days of the week. Comment: Gerald [facility] Main OR Intraoperative Recor don 11-02-2024 Main OR Intraoperative Record Main OR Intraoperative Record IntraOp Document Type FT Summary Primary Physician: Shashi De Souza MD Finalized Date/Time: 11/02/24 15:52:16 Pt. Name: CASSI RODRIGEZ DEVAN Mccormack./Sex: 1950 Female Med Rec #: [id number] Physician: Shashi De Souza MD Financial #: [id number] Pt. Type: A Room/Bed: [facility] Admit/Disch: 11/02/24 10:13:03 - Institution: Case Times FT Entry 1 Patient Times In Room 11/02/24 14:07:00 Out Room 11/02/24 15:48:00 Procedure Times Start 11/02/24 14:37:00 Stop 11/02/24 15:41:00 Anesthesia Times Start 11/02/24 14:07:00 Stop 11/02/24 15:48:00 Last Modified By: Renetta Melendez 11/02/24 15:51:38 Case Attendance FT Entry 1 Entry 2 Entry 3 Case Attendee Ani Berrios CRNA, MD, Renetta Topete Role Performed CARLOS ALBERTO Surgeon - Primary Ambulatory Care Nurse - Primary Time In 11/02/24 14:07:00 11/02/24 14:07:00 11/02/24 14:07:00 Time Out 11/02/24 15:48:00 11/02/24 15:48:00 11/02/24 15:48:00 Procedure LUMBAR LAMINECTOMY LUMBAR LAMINECTOMY LUMBAR LAMINECTOMY POSS. FUSION(.) POSS. FUSION(.) POSS. 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 FUSION(.) POSS. FUSION(.) POSS. FUSION(.) Comments Last Modified By: Renetta Melendez Kelsie E Burgderfer, Kelsie E 11/02/24 15:51:39 11/02/24 15:51:39 11/02/24 15:51:39 Entry 7 Entry 8 Case Attendee Jin Presley Ii, Robert David Role Performed Staff - Other Anesthesiologist Business Unit Director Time In 11/02/24 14:07:00 11/02/24 14:53:00 Time [...] Given Participants Ap PAUL, Shashi Barragan, Renetta Melendez Troike, Home R, Christal Perez, Katy William Time Out Complete [...] Post-Care Text: (more content not included)... Normal [facility] Main OR PACU I Recordon 10-15 Main OR PACU I Record Main OR PACU I Rec ord PACU Phase I Document Type FT Summary Primary Physician: Shashi De Souza MD Finalized Date/Time: 11/02/24 16:45:46 Pt. Name: CASSI RODRIGEZ/Sex: 1950 Female Med Rec #: [id number] Physician: Shashi De Souza MD Financial #: [id number] Pt. Type: A Room/Bed: [place] [address] Admit/Disch: 11/02/24 10:13:03 - Institution: Case Times [...] By: Josefina Tim RN 11/02/24 16:[address] [facility] Main OR Preoperative Recordo n 11-02-2024 Main OR Preoperative Record Main OR Preoperative Record PreOp Document Type FT Summary Primary Physician: Shashi De Souza MD Finalized Date/Time: 11/02/24 14:42:51 Pt. Name: CASSI RODRIGEZ /Sex: 1950 Female Med Rec #: [id number] Physician: Shashi De Souza MD Financial #: [id number] Pt. Type: A Room/Bed: [facility] Admit/Disch: 11/02/24 10:13:03 - Institution: Case Times [...] 11/02/24 14:42 Renetta Melendez 11/02/24 14:[address] [facility] Operative Reporton Operative Report Operative Report [...] Diagnosis: same. Performed by: Shashi De Souza MD Prosthesis: none. . Estimated Blood Loss: 25 [...] was brought to the operating room at [facility]. Timeout procedure performed. Patient was intubated by [...] have unintended errors. Anesthesia type: General. Normal [facility] Comment on above: Result Comment: Elec tronically Signed By: Shashi De Souza MD\.br\Date and Time Signed: 11/02/24 15:54 EST Outpatient Surgery Discharge Instructionon 11-02-2024 Outpatient Surgery Discharge Instruction Outpatient Surgery Discharge Instruction [place] [id number] Patient Discharge Instructions PERSON INFORMATION Name: CASSI RODRIGEZ Date of : 1950 Current Date: 11/02/2024 16:04:08 PHYSICIANS Admitting Physician: Shashi De Souza MD Discharge Diagnosis: CASSI RODRIGEZ has been given the following list of follow-up instructions, prescriptions, and patient education materials: IF UNABLE TO CONTACT YOUR PHYSICIAN AND YOU FEEL IT IS AN EMERGENCY, GO TO THE NEAREST EMERGENCY ROOM OR CALL 911 I, CASSI RODRIGEZ, have received the attached patient education materials/instructions and have verbalized understanding: May we do a follow up call? Yes No I was present when discharge instructions were given ____ Patient Signature _ Date Clinican/Nurse Signature Date Follow up: With: Address: When: Shashi De Souza [address] [facility], [address] [place] [phone] Business (1) Comments: f/u3wks ok shower and remove dressing [id number] no lift>5lbs keep incis dry clean. restart [...] to serve you. Thank you for choosing [facility] HERE ARE THE MEDICATION CHANGES THAT OCCURRED DURING YOUR HOSPITAL STAY New Medications [id number], [address], [place] [id number], [phone] acetaminophen-oxycodone (Percocet 5 mg-325 mg oral tablet) [...] PATIENT EDUCATION INFORMATION Instructions: Medication Leaflets: Normal [facility] PT & PTTon 11-02-2024 aPTT Coag (PPP) [Time] 43.4 second(s) High 25.1-36.[address] [facility] Comment on above: Result Comment: Para [...] the same coagulation reagent and instrumentation as [facility]. Currently there are no coagulation studies available worldwide for children to 14 days, and no normal ranges. Heparin therapeutic range (represented by Anti-Factor Xa activity of 0.2 - 0.4 U/mL) corresponds to PTT of 56.6 - 109.0 sec. Performed By: #### 1 [id number] #### [facility] [address] [place] [address] INR Coag (PPP) [Relative time] 1.26 {INR} Invalid Interpretation Code [facility] Comment on above: Result Comment: INR results are specifically intended to assess patients stabilized on long-term Anticoagulation therapy suggested INR???s ???Less Intensive Anticoagulation??? 2.0 ??? 3.0 Conventional Range 3.0 ??? 4.5 Performed By: #### 1 [id number] #### [facility] [address] [place] [address] PT Coag (PPP) [Time] 14.1 second(s) High 9.4-12.[address] [facility] Comment on above: Result Comment: 15 [...] ranges were obtained from a study by clay Yuan al. prepared from 1437 samples obtained at 7 different centers using the same coagulation reagent and instrumentation as [facility]. Currently there are no coagulation studies available worldwide for children to 14 days, and no normal ranges. Performed By: #### 1 [id number] #### [facility] [address] [place] [address] Patient Education - Texton 1 01-03-2024 Patient Education - Text Patient Education - Text Normal [facility] ABO/Rh Retypeon 10-25-2024 ABO/Rh Retype Interp Positive Invalid Interpretation Code [facility] Comment on above: Performed By: #### 1 [id number] #### [facility] [address] [place] [address] BMPon 10-25-2024 Anion gap [Moles/Vol] 11 mmol/L Normal 6-16 Fis [facility] Comment on above: Performed By: #### 2 [id number] #### [facility] [address] [place] [address] Calcium [Mass/Vol] 8.7 mg/dL Low 8.9-11.[address] [facility] Comment on above: Performed By: #### 2 [id number] #### [facility] [address] [place] [address] Chloride [Moles/Vol] 109 mmol/L Normal 101-111 [facility] Comment on above: Performed By: #### 2 [id number] #### [facility] [address] [place] [address] CO2 [Moles/Vol] 25 mmol/L Normal 21-[address] [facility] Comment on above: Performed By: #### 2 [id number] #### [facility] [address] [place] [address] Creatinine [Mass/Vol] 1.7 mg/dL High 0.5-1.3 [facility] Comment on above: Performed By: #### 2 [id number] #### [facility] [address] [place] [address] Glucose [Mass/Vol] 104 mg/dL Normal 55-[address] [facility] Comment on above: Performed By: #### 2 [id number] #### [facility] [address] [place] [address] Potassium [Moles/Vol] 4.8 mmol/L Normal 3.5-5.3 [facility] Comment on above: Performed By: #### 2 [id number] #### [facility] [address] [place] [address] Sodium [Moles/Vol] 140 mmol/L Normal 135-[address] [facility] Comment on above: Performed By: #### 2 [id number] #### [facility] [address] [place] [address] Urea nitrogen [Mass/Vol] 22 mg/dL High 5-[address] [facility] Comment on above: Performed By: #### 2 [id number] #### [facility] [address] [place] [address] Urea nitrogen/Creatinine [Mass ratio] 13 No Units Normal 10-[address] [facility] Comment on above: Performed By: #### 2 [id number] #### [facility] [address] [place] [address] CBC w/ Auto Diffon 4 Basophils/100 WBC (Bld) 0.6 % Normal 0.0-2.0 F [facility] Comment on above: Performed By: #### 2 [id number] #### [facility] [address] [place] [address] Basophils/Leukocytes Auto (Bld) [Pure # fraction] 0.0 E9/L Normal 0.0-0.[address] [facility] Comment on above: Performed By: #### 2 [id number] #### [facility] [address] [place] [address] Eosinophils (Bld) [#/Vol] 0.3 E9/L Normal 0.0-0.[address] [facility] Comment on above: Performed By: #### 2 [id number] #### [facility] [address] [place] [address] Eosinophils/100 WBC (Bld) 6.0 % Normal 0.0-8.[address] [facility] Comment on above: Performed By: #### 2 [id number] #### [facility] [address] [place] [address] Erythrocyte distribution width (RBC) [Ratio] 14.1 % Normal 10.9-14.[address] [facility] Comment on above: Performed By: #### 2 [id number] #### [facility] [address] [place] [address] Hematocrit (Bld) [Volume fraction] 36.8 % Normal 34.0-46.[address] [facility] Comment on above: Performed By: #### 2 [id number] #### [facility] [address] [place] [address] Hemoglobin (Bld) [Mass/Vol] 12.4 g/dL Normal 12.0-16.[address] [facility] Comment on above: Performed By: #### 2 [id number] #### [facility] [address] [place] [address] Lymphocytes (Bld) [#/Vol] 0.7 E9/L Low 1.0-4.[address] [facility] Comment on above: Performed By: #### 2 [id number] #### [facility] [address] [place] [address] Lymphocytes/100 WBC (Bld) 15.2 % Normal 14.0-50.[address] [facility] Comment on above: Performed By: #### 2 [id number] #### [facility] [address] [place] [address] MCH (RBC) [Entitic mass] 31.4 pg Normal 27.0-34.[address] [facility] Comment on above: Performed By: #### 2 [id number] #### [facility] [address] [place] [address] MCHC (RBC) [Mass/Vol] 33.8 g/dL Normal 31.4-36.0 Fis [facility] Comment on above: Performed By: #### 2 [id number] #### [facility] [address] [place] [address] MCV (RBC) [Entitic vol] 93.0 fL Normal 80.0-100.0 F [facility] Comment on above: Performed By: #### 2 [id number] #### [facility] [address] [place] [address] Monocytes (Bld) [#/Vol] 0.3 E9/L Normal 0.2-1.0 F [facility] Comment on above: Performed By: #### 2 [id number] #### [facility] [address] [place] [address] Neutrophils (Bld) [#/Vol] 3.4 E9/L Normal 2.0-7.[address] [facility] Comment on above: Performed By: #### 2 [id number] #### [facility] [address] [place] [address] Neutrophils/100 WBC (Bld) 71.7 % Normal 36.0-75.[address] [facility] Comment on above: Performed By: #### 2 [id number] #### [facility] [address] [place] [address] Platelet 228.0 E9/L Normal 150.0-500. [address] [facility] Comment on above: Performed By: #### 2 [id number] #### [facility] [address] [place] [address] Platelet mean volume (Bld) [Entitic vol] 7.4 fL Normal 6.4-10.[address] [facility] Comment on above: Performed By: #### 2 [id number] #### [facility] [address] [place] [address] RBC (Bld) [#/Vol] 4.0 E12/L Low 4.3-5.[address] [facility] Comment on above: Performed By: #### 2 [id number] #### [facility] [address] [place] [address] WBC corrected for nucl RBC Auto (Bld) [#/Vol] 4.7 E9/L Normal 4.0-11.[address] [facility] Comment on above: Performed By: #### 2 [id number] #### [facility] [address] [place] [address] CT Spine Lumbar w/o Contrast on 10-25-2024 [...] MD Transcribed by: CLINTON Technologist: COCO Normal [facility] Plt Function Assayon 024 Platelet function (closure time) collagen+EPINEPHrine induced (Bld) [Time] 78 second(s) Normal 70-[address] [facility] Comment on above: Result Comment: Norm al ASA vWD Glansanchezmann???s Thrombasthenia ------- ------ ------- COL/EPI Normal Abnormal Abnormal Abnormal Col/ADP Normal Normal Abnormal Abnormal Performed By: #### 1 [id number] #### [facility] [address] [place] [address] UA with Cult Rflxon 10-25-20 24 Bilirubin Ql (U) Negative Normal Negative [facility] Comment on above: Performed By: #### 4 [id number] #### [facility] [address] [place] [address] Clarity (U) Clear Normal Clear [facility] Comment on above: Performed By: #### 4 [id number] #### [facility] [address] [place] [address] Color (U) Light-Yellow Normal Yellow [facility] Comment on above: Result Comment: Micr oscopic readings are only performed on those samples that meet specific criteria set forth by [facility]. Performed By: #### 4 [id number] #### [facility] [address] [place] [address] Glucose Ql (U) Negative Normal Negative [facility] Comment on above: Performed By: #### 4 [id number] #### [facility] [address] [place] [address] Hemoglobin Auto test strip (U) [Mass/Vol] Negative Normal Negative [facility] Comment on above: Performed By: #### 4 [id number] #### [facility] [address] [place] [address] Ketones Auto test strip Ql (U) Negative Normal Negative [facility] Comment on above: Performed By: #### 4 [id number] #### [facility] [address] [place] [address] Leukocyte esterase Auto test strip Ql (U) Negative Normal Negative [facility] Comment on above: Performed By: #### 4 [id number] #### [facility] [address] [place] [address] Nitrite Auto test strip Ql (U) Negative Normal Negative [facility] Comment on above: Performed By: #### 4 [id number] #### [facility] [address] [place] [address] pH (U) 5.5 [pH] Invalid Interpretation Code 5.0-9.[address] [facility] Comment on above: Performed By: #### 4 [id number] #### [facility] [address] [place] [address] Protein Ql (U) Negative Normal Negative [facility] Comment on above: Performed By: #### 4 [id number] #### [facility] [address] [place] [address] Specific gravity (U) [Rel density] 1.018 Invalid Interpretation Code 1.005-1.[address] [facility] Comment on above: Performed By: #### 4 [id number] #### [facility] [address] [place] [address] Urobilinogen (U) [Mass/Vol] Negative Normal Negative [facility] Comment on above: Performed By: #### 4 [id number] #### [facility] [address] [place] [address] Type of Urine collection method Clean Catch Normal [facility] Comment on above: Performed By: #### 4 [id number] #### [facility] [address] [place] [address] XR Chest 2 Viewson XR Chest 2 [...] mGy = . DAP = . Normal [facility] eGFRon 10-25-2024 eGFR 31 mL/min/1.73 m2 Low >=[address] [facility] Comment on above: Performed By: #### 1 [id number] #### [facility] [address] [place] [address] ECHOon 10-02-2024 Echocardiography Echocardiography Rep ort: Transthoracic Echo [facility] Date of service: 10/02/2024 2:44:31 PM HEEL SEAT LASTER Ordering physician: KITTY MILLARD Indication: Evaluation of device (pacemaker, ICD, or BYPRODUCTS MAKER) after revascularization Technologist: Iwona HUANG Interpreting physician: [...] indication: Evaluation of device (pacemaker, ICD, or BYPRODUCTS MAKER) after revascularization - The left ventricle is normal in size. There is mild concentric left ventricular hypertrophy. Left ventricular systolic function is normal. EF = 57 5% (2D biplane) Grade I left ventricular diastolic dysfunction. - The right ventricle is normal in size. Right ventricular systolic function is normal. - Exam was compared with the prior CC echocardiographic exam performed on 09/15/2016. No significant change. * * * Final * * * SupportLocal Medical Image : [id number] Normal [facility] CNOVon 09-05-2024 CNOV Office Visit (NEADFV ) -- CASSI RODRIGEZ ([id number]) 1950 F Date Time Provider Department 09/05/24 [...] Jewell RN Botox, 2 vials: Lot # [id number] Exp 10/2026 Lot # [id number] Exp 10/[address] Reilly to administer and verified order. Randa Reilly MD 09/05/2024 1:54 PM Signed PROGRESS NOTE- HEADACHE MEDICINE SERVICE DATE: September 05, 2024 Location: [facility] neurological whitlash Participants: patient, and provider HPI: Here for [...] 3.Referral to sleep medicine Randa Reilly MD [facility] [place] [place] Randa Reilly MD 09/05/2024 1:54 PM Signed [...] Injection Sites Muscle Fixed Site/Fixed Dose Bilat Customer Support Associate 20 U divided in 2 sites Procerus [...] Total Units wasted: 0 Randa Reilly MD [facility] R (more content not included)... Normal [facility] ECG COMPLETEon 09-01-2024 Atrial Rate 81 BPM [facility] Calculated P [place] 74 degrees [facility] Calculated R [place] 73 degrees [facility] Calculated T [place] 67 degrees [facility] P-R Interval 186 ms [facility] QRS Duration 80 ms [facility] QT Interval 386 ms [facility] QTC Calculation (Bazett) 448 ms [facility] Ventricular Rate 81 BPM [facility] ATRIAL-PACED RHYTHM LOW VOLTAGE QRS, CONSIDER PULMONARY DISEASE, PERICARDIAL EFFUSION, OR NORMAL VARIANT ABNORMAL ECG Confirmed by JONATHAN TELLEZ MD ([id number]) on 09/01/2024 1:53:38 PM [facility] NAME : CASSI RODRIGEZ PID : [id number] : 1950 Gender : Female Race : [...] Acquired by : , [facility] CNOVon 08-31-2024 CNOV Office Visit (CAEPAV ) -- CASSI RODRIGEZ ([id number]) 1950 F Date Time Provider Department 08/31/24 10:00 AM KITTY VALENTE During your visit today, we recorded the following information about you: Pulse Blood pressure Weight Height 81/minute 134/72 88 kg 1.575 m Kitty Valente MD 09/02/2024 12:42 AM Signed [facility] [place] [facility] Renteria Department of Cardiovascular Medicine SECTION OF CARDIAC PACING and ELECTROPHYSIOLOGY OUTPATIENT VISIT DATE NASRIN July 23, 2022 August 31, 2024 OUTPATIENT VISIT TYPE ESTABLISHED PRIMARY CARE PHYSICIAN: Broderick Howard MD ([facility]) [address] [place] [address] CHIEF COMPLAINT: Pacemaker management HISTORY OF PRESENT [...] Review of (more content not included)... Normal [facility] [id number] 08-31-2024 ECG01 Ventricular Rate : 8 1 BPM Atrial Rate : 81 BPM P-R Interval : 186 ms QRS Duration : 80 ms Q-T Interval : 386 ms QTC Calculation(Bazett) : 448 ms Calculated P [place] : 74 degrees Calculated R [place] : 73 degrees Calculated T [place] : 67 degrees ATRIAL-PACED RHYTHM LOW VOLTAGE QRS, CONSIDER PULMONARY DISEASE, PERICARDIAL EFFUSION, OR NORMAL VARIANT ABNORMAL ECG Confirmed by JONATHAN TELLEZ MD ([id number]) on 09/01/2024 1:53:38 PM NAME : CASSI RODRIGEZ PID : [id number] : 1950 Gender : Female Race : [...] : , Acquired by : , Normal [facility] Erythrocyte distribution wid th Auto (RBC) [Ratio]on 08-28-2024 Erythrocyte distribution width (RBC) [Ratio] 13.0 % .0-15.0 [facility] Erythrocyte distribution width (RBC) [Ratio] Erythrocyte distribution width [Ratio] by Automated count .-15.0 [facility] Estimated glomerular filtrat ion rate (GFR) non- Americanon 08-28-2024 GFR/1.73 sq M.predicted among non-blacks MDRD (S/P/Bld) [Vol rate/Area] 26 mL/min/{1.73_m2} Low >=60 mL/min/1.7 3m 2 [facility] GFR/1.73 sq M.predicted among non-blacks MDRD (S/P/Bld) [Vol rate/Area] Estimated glomerular filtration rate (GFR) non- Low >=60 mL/min/1.7 3m 2 [facility] Hematocrit Auto (Bld) [Volum e fraction]on 08-28-2024 Hematocrit (Bld) [Volume fraction] 37.4 % 36.0-48.0 [facility] Hematocrit (Bld) [Volume fraction] Hematocrit [Volume Fraction] of Blood by Automated count 36.0-48.0 [facility] Hemoglobin [Mass/volume] in Bloodon 08-28-2024 Hemoglobin (Bld) [Mass/Vol] 11.8 g/dL Low 12.0-16.0 [facility] Hemoglobin (Bld) [Mass/Vol] Hemoglobin [Mass/volume] in Blood Low 12.0-16.0 [facility] Iron binding capacity [Mass/ volume] in Serum or Plasmaon 08-28-2024 Iron binding capacity [Mass/Vol] 356.0 ug/dL 250.0-450. 0 [facility] Iron binding capacity [Mass/Vol] Iron binding capacity [Mass/volume] in Serum or Plasma 250.0-450. 0 [facility] Iron saturation [Mass Fracti on] in Serum or Plasmaon 08-28-2024 Iron saturation [Mass fraction] 14.3 % [facility] Iron saturation [Mass fraction] Iron saturation [Mass Fraction] in Serum or Plasma [facility] Laboratory - Chemistry and C hemistry - challengeon 08-28-2024 Albumin [Mass/Vol] 3.3 g/dL Low 3.4-5.0 [facility] Calcium [Mass/Vol] 8.6 mg/dL 8.5-10.1 [facility] Chloride [Moles/Vol] 108 mmol/L High 98-107 [facility] CO2 [Moles/Vol] 21.8 mmol/L 21.0-32.0 [facility] Creatinine [Mass/Vol] 1.91 mg/dL High 0.55-1.02 [facility] Ferritin [Mass/Vol] 15.0 ng/mL 8.0-252.0 [facility] GFR/1.73 sq M.predicted MDRD (S/P/Bld) [Vol rate/Area] 31 mL/min/{1.73_m2} Low >=60 mL/min/1.7 3m 2 [facility] Glucose [Mass/Vol] 135 mg/dL High 74-106 [facility] Iron [Mass/Vol] 51.0 ug/dL 50.0-170.0 [facility] Magnesium [Mass/Vol] 2.0 mg/dL 1.8-2.4 [facility] Potassium [Moles/Vol] 4.0 mmol/L 3.5-5.1 [facility] Sodium [Moles/Vol] 142 mmol/L 136-145 [facility] Urate [Mass/Vol] 5.0 mg/dL 2.6-6.0 [facility] Urea nitrogen [Mass/Vol] 24.0 mg/dL High 7.0-18.0 [facility] Urea nitrogen/Creatinine [Mass ratio] 12.6 mg/mg [facility] Bilirubin Ql (U) Negative NEGATIVE [facility] Glucose (U) [Mass/Vol] Negative NEGATIVE [facility] Ketones Ql (U) Negative NEGATIVE [facility] pH (U) 5.5 [pH] 5.0-9.0 [facility] Specific gravity (U) [Rel density] 1.025 1.005-1.02 5 [facility] Urobilinogen Qn (U) 0.2 {Lin'U}/dL 0.2-1.0 [facility] Laboratory - Specimen inform ationon 08-28-2024 Appearance (U) CLEAR CLEAR [facility] Color (U) YELLOW YELLOW [facility] Laboratory - Urinalysison Leukocyte esterase Test strip Ql (U) Negative NEGATIVE [facility] Mucus Ql (Urine sed) NONE SEEN NONE SEEN [facility] Nitrite Ql (U) Negative NEGATIVE [facility] Protein (U) [Mass/Vol] 16.2 mg/dL High <=11.9 [facility] Protein Ql (U) Negative NEG/TRACE [facility] Leukocytes [#/volume] correc tanesha for nucleated erythrocytes in Blood by Automated counon 08-28-2024 WBC corrected for nucl RBC Auto (Bld) [#/Vol] 5.2 10 3/uL 4.0-11.0 [facility] WBC corrected for nucl RBC Auto (Bld) [#/Vol] Leukocytes [#/volume] corrected for nucleated erythrocytes in Blood by Automated coun 4.0-11.0 [facility] MCH Auto (RBC) [Entitic mass ]on 08-28-2024 MCH (RBC) [Entitic mass] 31.1 pg 26.7-34.0 [facility] MCH (RBC) [Entitic mass] MCH [Entitic mass] by Automated count 26.7-34.0 [facility] MCHC Auto (RBC) [Mass/Vol]on 08-28-2024 MCHC (RBC) [Mass/Vol] 31.6 g/dL 29.9-35.2 [facility] MCHC (RBC) [Mass/Vol] MCHC [Mass/volume] by Automated count 29.9-35.2 [facility] MCV Auto (RBC) [Entitic vol] on 08-28-2024 MCV (RBC) [Entitic vol] 98.4 fL 81.0-99.0 [facility] MCV (RBC) [Entitic vol] MCV [Entitic vol ume] by Automated count 81.0-99.0 [facility] No Panel Informationon 08-28 25-Hydroxy Vitamin D Total 22.3 ng/mL [facility] Comment on above: <20 ng/mL Vit D defi cient20-<30 ng/mL Vit D [id number] ng/mL Vit D sufficient>100 ng/mL Potential Toxicity Parathyroid Hormone (Intact) 194 pg/mL Abnormal [facility] Comment on above: Performed at: [address] [id number] Director: Junaid Sawyer PhD, Phone: [phone] Phosphorus Level 3.0 mg/dL 2.6-4.7 [facility] Urine Bacteria NONE SEEN #/HPF NONE SEEN [facility] Urine Occult Blood Negative NEGATIVE [facility] Urine Other Casts NONE SEEN #/LPF NONE SEEN [facility] Urine Other Crystals None Seen #/HPF None Seen [facility] Urine Random Creatinine 137.09 mg/dL 20.0 0-300. 00 [facility] Urine RBC NONE SEEN #/HPF 0-2 [facility] Urine Squamous Epithelial Cells RARE #/LPF NONE/RARE [facility] Urine WBC 0-2 #/HPF Abnormal NONE SEEN [facility] Platelet mean volume Auto (B ld) [Entitic vol]on 08-28-2024 Platelet mean volume (Bld) [Entitic vol] 9.5 fL 9.5-13.5 [facility] Platelet mean volume (Bld) [Entitic vol] Platelet mean volume [Entitic volume] in Blood by Automated count 9.5-13.5 [facility] Platelets Auto (Bld) [#/Vol] on 08-28-2024 Platelets (Bld) [#/Vol] 219 10 3/uL 150-450 [facility] Platelets (Bld) [#/Vol] Platelets [#/vol ume] in Blood by Automated count 150-450 [facility] RBC Auto (Bld) [#/Vol]on RBC (Bld) [#/Vol] 3.80 10 6/uL Low 4.20-5.40 [facility] RBC (Bld) [#/Vol] Erythrocytes [#/volu me] in Blood by Automated count Low 4.20-5.40 [facility] Serum or plasma anion gap de terminationon 08-28-2024 Anion gap [Moles/Vol] 16.2 mmol/L [facility] Anion gap [Moles/Vol] Serum or plasma an ion gap determination [facility] Urine protein/creatinine rat ioon 08-28-2024 Protein/Creatinine (U) [Ratio] 0.12 [facility] Protein/Creatinine (U) [Ratio] Urine protein/creatinine ratio [facility] Basophils Auto (Bld) [#/Vol] on 07-05-2024 Basophils (Bld) [#/Vol] 0.0 10 3/uL 0.0-0.1 [facility] Basophils/100 WBC Auto (Bld) on 07-05-2024 Basophils/100 WBC (Bld) 0.7 % 0.2-2.0 [facility] Eosinophils/100 WBC Auto (Bl d)on 07-05-2024 Eosinophils/100 WBC (Bld) 4.2 % 0.9-7.0 [facility] Erythrocyte distribution wid th Auto (RBC) [Ratio]on 07-05-2024 Erythrocyte distribution width (RBC) [Ratio] 14.9 % 11.0-15.0 [facility] Hematocrit Auto (Bld) [Volum e fraction]on 07-05-2024 Hematocrit (Bld) [Volume fraction] 36.5 % 36.0-48.0 [facility] Hemoglobin [Mass/volume] in Bloodon 07-05-2024 Hemoglobin (Bld) [Mass/Vol] 11.9 g/dL Low 12.0-16.0 [facility] Iron binding capacity [Mass/ volume] in Serum or Plasmaon 07-05-2024 Iron binding capacity [Mass/Vol] 344.0 ug/dL 250.0-450. 0 [facility] Iron saturation [Mass Fracti on] in Serum or Plasmaon 07-05-2024 Iron saturation [Mass fraction] 18.9 % [facility] Laboratory - Chemistry and C hemistry - challengeon 07-05-2024 Cobalamin (Vitamin B12) [Mass/Vol] 400.0 pg/mL 193.0-986. 0 [facility] Ferritin [Mass/Vol] 24.0 ng/mL 8.0-252.0 [facility] Iron [Mass/Vol] 65.0 ug/dL 50.0-170.0 [facility] Laboratory - Hematology and Cell countson 07-05-2024 Immature granulocytes/100 WBC (Bld) 0.6 % High 0.0-0.5 [facility] Leukocytes [#/volume] correc tanesha for nucleated erythrocytes in Blood by Automated counon 07-05-2024 WBC corrected for nucl RBC Auto (Bld) [#/Vol] 5.4 10 3/uL 4.0-11.0 [facility] Lymphocytes Auto (Bld) [#/Vo l]on 07-05-2024 Lymphocytes (Bld) [#/Vol] 0.8 10 3/uL Low 1.2-3.8 [facility] Lymphocytes/100 WBC Auto (Bl d)on 07-05-2024 Lymphocytes/100 WBC (Bld) 14.4 % Low 20.5-60.0 [facility] MCH Auto (RBC) [Entitic mass ]on 07-05-2024 MCH (RBC) [Entitic mass] 30.8 pg 26.7-34.0 [facility] MCHC Auto (RBC) [Mass/Vol]on 07-05-2024 MCHC (RBC) [Mass/Vol] 32.6 g/dL 29.9-35.2 [facility] MCV Auto (RBC) [Entitic vol] on 07-05-2024 MCV (RBC) [Entitic vol] 94.6 fL 81.0-99.0 F [facility] Monocytes Auto (Bld) [#/Vol] on 07-05-2024 Monocytes (Bld) [#/Vol] 0.4 10 3/uL 0.3-0.8 [facility] Monocytes/100 WBC Auto (Bld) on 07-05-2024 Monocytes/100 WBC (Bld) 6.5 % 1.7-12.0 [facility] Neutrophils Auto (Bld) [#/Vo l]on 07-05-2024 Neutrophils (Bld) [#/Vol] 4.0 10 3/uL 1.4-6.5 [facility] Neutrophils/100 WBC Auto (Bl d)on 07-05-2024 Neutrophils/100 WBC (Bld) 73.6 % 43.0-75.0 [facility] No Panel Informationon 07-05 Add Manual Differential See comment [facility] Comment on above: SEE SCANNED REPORT Eosinophils # (Auto) 0.2 10 3/uL 0.0-0.7 [facility] Folate 10.80 ng/mL 8.60-58.90 [facility] Immature Granulocyte # (Auto) 0.03 10 3/uL 0.00-0.03 [facility] Platelet mean volume Auto (B ld) [Entitic vol]on 07-05-2024 Platelet mean volume (Bld) [Entitic vol] 9.4 fL Low 9.5-13.5 [facility] Platelets Auto (Bld) [#/Vol] on 07-05-2024 Platelets (Bld) [#/Vol] 180 10 3/uL 150-450 [facility] RBC Auto (Bld) [#/Vol]on RBC (Bld) [#/Vol] 3.86 10 6/uL Low 4.20-5.40 [facility] Comprehensive metabolic 2000 panelon 06-29-2024 Albumin [Mass/Vol] 4.3 g/dL 3.9 - 4.9 g/dL [facility] ALP [Catalytic activity/Vol] 170 U/L High 34 - 123 U/L [facility] ALT [Catalytic activity/Vol] 28 U/L 7 - 38 U[facility] Anion gap [Moles/Vol] 8 mmol/L 8 - 15 mmol/L [facility] AST [Catalytic activity/Vol] 22 U/L 13 - 35 U/L [facility] Bilirubin [Mass/Vol] 0.4 mg/dL 0.2 - 1 .3 mg/dL [facility] Calcium [Mass/Vol] 8.8 mg/dL 8.5 - 10. 2 mg/dL [facility] Chloride [Moles/Vol] 109 mmol/L High 98 - 10 7 mmol/L [facility] CO2 [Moles/Vol] 24 mmol/L 22 - 30 mmol/L [facility] Creatinine [Mass/Vol] 1.73 mg/dL High 0.58 - 0.96 mg/dL [facility] GFR/1.73 sq M.predicted among non-blacks MDRD (S/P/Bld) [Vol rate/Area] 31 mL/min/{1.73_m2} Low - PINF [facility] Comment on above: Estimated Glomerular Filtration Rate [...] 111 mg/dL High 74 - 99 mg/dL [facility] Comment on above: The [place] [employer] (ADA) provides guidance for [...] Standards of Medical Care in Diabetes 2016, [place] [employer]. Diabetes Care. 2016.39(Suppl 1). Interpretation and review of laboratory results Abnormal [facility] Potassium [Moles/Vol] 5.1 mmol/L 3.7 - 5.1 mmol/L [facility] Protein [Mass/Vol] 7.0 g/dL 6.3 - 8.0 g/dL [facility] Sodium [Moles/Vol] 141 mmol/L 136 - 144 mmol/L [facility] Urea nitrogen [Mass/Vol] 34 mg/dL High 7 - 21 mg/dL [facility] LEVETIRACETAMon 06-29-2024 levETIRAcetam [Mass/Vol] 59.9 ug/mL High 12.0 - 46.0 ug/mL [facility] Comment on above: This test is not [...] developed and its performance characteristics determined by [facility] Pathology and Laboratory Medicine [place] ([place]). It has not been cleared or approved by the FDA. ED [facility] is regulated under CLIA as qualified to perform high-complexity testing. This test is used for clinical purposes. It should not be regarded as investigational or for research. Laboratory - Chemistry and C hemistry - challengeon 06-29-2024 Albumin [Mass/Vol] 4.3 g/dL 3.9-4.9 [facility] ALP [Catalytic activity/Vol] 170 U/L High 34-123 [facility] ALT [Catalytic activity/Vol] 28 U/L 7-38 [facility] AST [Catalytic activity/Vol] 22 U/L 13-35 [facility] Bilirubin [Mass/Vol] 0.4 mg/dL 0.2-1.3 [facility] Calcium [Mass/Vol] 8.8 mg/dL 8.5-10.2 [facility] Chloride [Moles/Vol] 109 mmol/L High 98-107 [facility] CO2 [Moles/Vol] 24 mmol/L 22-30 [facility] Creatinine [Mass/Vol] 1.73 mg/dL High 0.58-0.96 [facility] Glucose [Mass/Vol] 111 mg/dL High 74-99 [facility] Comment on above: The [place] [employer] (ADA) provides guidance for [...] Standards of Medical Care in Diabetes 2016, [place] [employer]. Diabetes Care. 2016.39(Suppl 1). Potassium [Moles/Vol] 5.1 mmol/L 3.7-5.1 [facility] Sodium [Moles/Vol] 141 mmol/L 136-144 [facility] Urea nitrogen [Mass/Vol] 34 mg/dL High 7-21 [facility] No Panel Informationon 06-29 Estimated GFR (CKD-EPI) 31 mL/min/1.73m??? Low >=60 [facility] Comment on above: Estimated Glomerular Filtration Rate [...] Levetiracetam (Keppra) Level 59.9 ug/mL High 12.0-46.0 [facility] Comment on above: This test is not [...] developed and its performance characteristics determined by [facility] and Laboratory Medicine [place] ([place]). It has not been cleared or approved by the FDA. -[facility] is regulated under CLIA as qualified to perform high-complexity testing. This test is used for clinical purposes. It should not be regarded as investigational or for research. Protein [Mass/volume] in Ser um or Plasmaon 06-29-2024 Protein [Mass/Vol] 7.0 g/dL 6.3-8.0 [facility] Serum or plasma anion gap de terminationon 06-29-2024 Anion gap [Moles/Vol] 8 mmol/L 06-29 [facility] levETIRAcetam [Mass/Vol]on 0 06-29-2024 Interpretation and review of laboratory results Abnormal [facility] INR in Platelet poor plasma by Coagulation assayon 06-05-2024 INR Coag (PPP) [Relative time] 2.29 {INR} [facility] Comment on above: DESIRED INR:2.0-3.0 CONDITIONS NOT LISTED BELOW2.5-3.5 FOR PROSTHETIC HEART VALVE REPLACEMENT2.5-3.5 RECURRENT THROMBOSIS Prothrombin time (PT)on 05-16 PT Coag (PPP) [Time] 22.4 s High 9.0-11.6 [facility] Creatinine (Bld) [Mass/Vol]O rdered By: David Mcfadden on 05-30-2024 Creatinine [Mass/Vol] 1.8 mg/dL High 0.6-1.3 [facility] Comment on above: ER/ESD physician is notified/shown all ISTAT results.Critical values may be confirmed by laboratory testing ifdeemed necessary by ER attending doctor. No Panel InformationOrdered By: David Mcfadden on 05-30-2024 Bedside Estimated GFR (eGFR) 29.200 [facility] INR in Platelet poor plasma by Coagulation assayon 05-15-2024 INR Coag (PPP) [Relative time] 2.71 {INR} [facility] Comment on above: DESIRED INR:2.0-3.0 CONDITIONS NOT LISTED BELOW2.5-3.5 FOR PROSTHETIC HEART VALVE REPLACEMENT2.5-3.5 RECURRENT THROMBOSIS Prothrombin time (PT)on PT Coag (PPP) [Time] 26.0 s High 9.0-11.6 [facility] Basophils Auto (Bld) [#/Vol] on 05-05-2024 Basophils (Bld) [#/Vol] 0.0 10 3/uL 0.0-0.1 [facility] Basophils/100 WBC Auto (Bld) on 05-05-2024 Basophils/100 WBC (Bld) 1.1 % 0.2-2.0 [facility] Eosinophils/100 WBC Auto (Bl d)on 05-05-2024 Eosinophils/100 WBC (Bld) 6.9 % 0.9-7.0 [facility] Erythrocyte distribution wid th Auto (RBC) [Ratio]on 05-05-2024 Erythrocyte distribution width (RBC) [Ratio] 13.3 % 11.0-15.0 [facility] Estimated glomerular filtrat ion rate (GFR) non- Americanon 05-05-2024 GFR/1.73 sq M.predicted among non-blacks MDRD (S/P/Bld) [Vol rate/Area] 32 mL/min/{1.73_m2} Low >=60 [facility] Hematocrit Auto (Bld) [Volum e fraction]on 05-05-2024 Hematocrit (Bld) [Volume fraction] 35.5 % Low 36.0-48.0 [facility] Hemoglobin [Mass/volume] in Bloodon 05-05-2024 Hemoglobin (Bld) [Mass/Vol] 11.1 g/dL Low 12.0-16.0 [facility] Laboratory - Chemistry and C hemistry - challengeon 05-05-2024 Calcium [Mass/Vol] 8.4 mg/dL Low 8.5-10.1 [facility] Chloride [Moles/Vol] 108 mmol/L High 98-107 [facility] CO2 [Moles/Vol] 26.2 mmol/L 21.0-32.0 [facility] Creatinine [Mass/Vol] 1.60 mg/dL High 0.55-1.02 [facility] GFR/1.73 sq M.predicted MDRD (S/P/Bld) [Vol rate/Area] 38 mL/min/{1.73_m2} Low >=60 [facility] Glucose [Mass/Vol] 103 mg/dL 74-106 [facility] Potassium [Moles/Vol] 4.4 mmol/L 3.5-5.1 [facility] Sodium [Moles/Vol] 140 mmol/L 136-145 [facility] Urea nitrogen [Mass/Vol] 24.0 mg/dL High 7.0-18.0 [facility] Urea nitrogen/Creatinine [Mass ratio] 15.0 mg/mg [facility] Laboratory - Hematology and Cell countson 05-05-2024 ESR (Bld) [Velocity] 45 mm/h High <=30 [facility] Immature granulocytes/100 WBC (Bld) 0.0 % 0.0-0.5 [facility] Leukocytes [#/volume] correc tanesha for nucleated erythrocytes in Blood by Automated counon 05-05-2024 WBC corrected for nucl RBC Auto (Bld) [#/Vol] 3.8 10 3/uL Low 4.0-11.0 [facility] Lymphocytes Auto (Bld) [#/Vo l]on 05-05-2024 Lymphocytes (Bld) [#/Vol] 1.0 10 3/uL Low 1.2-3.8 [facility] Lymphocytes/100 WBC Auto (Bl d)on 05-05-2024 Lymphocytes/100 WBC (Bld) 27.1 % 20.5-60.0 [facility] MCH Auto (RBC) [Entitic mass ]on 05-05-2024 MCH (RBC) [Entitic mass] 28.8 pg 26.7-34.0 [facility] MCHC Auto (RBC) [Mass/Vol]on 05-05-2024 MCHC (RBC) [Mass/Vol] 31.3 g/dL 29.9-35.2 [facility] MCV Auto (RBC) [Entitic vol] on 05-05-2024 MCV (RBC) [Entitic vol] 92.2 fL 81.0-99.0 F [facility] Monocytes Auto (Bld) [#/Vol] on 05-05-2024 Monocytes (Bld) [#/Vol] 0.3 10 3/uL 0.3-0.8 [facility] Monocytes/100 WBC Auto (Bld) on 05-05-2024 Monocytes/100 WBC (Bld) 8.2 % 1.7-12.0 [facility] Neutrophils Auto (Bld) [#/Vo l]on 05-05-2024 Neutrophils (Bld) [#/Vol] 2.1 10 3/uL 1.4-6.5 [facility] Neutrophils/100 WBC Auto (Bl d)on 05-05-2024 Neutrophils/100 WBC (Bld) 56.7 % 43.0-75.0 [facility] No Panel Informationon 05-05 C-Reactive Protein, Quantitative <0.50 mg/dL <=0.50 [facility] Eosinophils # (Auto) 0.3 10 3/uL 0.0-0.7 [facility] Immature Granulocyte # (Auto) 0.00 10 3/uL 0.00-0.03 [facility] Platelet mean volume Auto (B ld) [Entitic vol]on 05-05-2024 Platelet mean volume (Bld) [Entitic vol] 9.4 fL Low 9.5-13.5 [facility] Platelets Auto (Bld) [#/Vol] on 05-05-2024 Platelets (Bld) [#/Vol] 217 10 3/uL 150-450 [facility] RBC Auto (Bld) [#/Vol]on RBC (Bld) [#/Vol] 3.85 10 6/uL Low 4.20-5.40 [facility] Serum or plasma anion gap de terminationon 05-05-2024 Anion gap [Moles/Vol] 10.2 mmol/L [facility] No Panel Informationon 03-15 BLANK _ [facility] Implant Date 05/22/2015 [facility] Model 5076 [employer] [facility] PACEMAKER REMOTE CHECKon AV Delay Adaptive Paced Minimum (ms) 180 ms [facility] AV Delay Adaptive Sensed Minimum (ms) 150 ms [facility] AV Delay Adaptive Status DISABLED [facility] Battery Voltage (volts) 2.92 V [facility] Godfrey RA Pacing Amplitude (volts) 1.5 V [facility] Godfrey RA Pacing Polarity BI [facility] RA Pacing Pulse Width (ms) 0.4 ms [facility] RA Sensing Amplitude (mvolts) 0.3 mV [facility] RA Sensing Blanking Period (ms) 150 ms [facility] RA Sensing Polarity BI [facility] RA Sensing Refractory Period (ms) Auto [facility] RV Pacing Amplitude (volts) 2 V [facility] RV Pacing Polarity BI [facility] RV Pacing Pulse Width (ms) 0.4 ms [facility] RV Sensing Amplitude (mvolts) 0.9 mV [facility] RV Sensing Blanking Period (ms) 200 ms [facility] RV Sensing Polarity BI [facility] Hysteresis Rate (bpm) DISABLED [facility] Lead1 Jorge KELLER [facility] Lead2 Jorge KELLER [facility] Location RV [facility] Location RA [facility] Lower Rate (bpm) 60 {beats}/min [facility] Max Sensor Rate (bmp) 130 {beats}/min [facility] Model [id number] COBOS [facility] PM-Device Jorge KELLER [facility] PM-Percent Pacing (A) 99.48 % [facility] PM-Percent Pacing (V) 0.27 % [facility] PM-PMT Intervention ENABLED [facility] PM-PVC Intervention ENABLED [facility] PM-Rate Modulation Acceleration Reaction 30 s [facility] PM-Rate Modulation ADL Rate (bpm) 100 {beats}/min [facility] PM-Rate Modulation Deceleration Exercise [facility] PM-Rate Modulation Threshold MediumLow [facility] RA Bipolar Impedance ohms 418 ohm [facility] RA Unipolar Impedance ohms 399 ohm [facility] RV Bipolar Impedance ohms 532 ohm [facility] RV Unipolar Impedance 494 ohm [facility] Serial Number [id number] [facility] Serial Number [id number] [facility] Serial Number [id number] [facility] Thresh RA Capture Amplitude (volts) 0.5 V [facility] Thresh RA Capture Duration (ms) 0.4 ms [facility] Thresh RA Sensing Amplitude (mvolts) 3.125 mV [facility] Thresh RV Capture Amplitude (volts) 0.875 V [facility] Thresh RV Capture Duration (ms) 0.4 ms [facility] Thresh RV Sensing Amplitude (mvolts) 11.875 mV [facility] Tracking Rate (bpm) 130 {beats}/min [facility] 03/15/2024 Formattin g of this note might [...] CARDIAC DATA AND REPORT, Scanned Documents section. [facility] Albumin [Mass/volume] in Ser um or Plasmaon 03-03-2024 Albumin [Mass/Vol] 3.5 g/dL 2.9-4.4 [facility] Basophils Auto (Bld) [#/Vol] on 03-03-2024 Basophils (Bld) [#/Vol] 0.0 10 3/uL 0.0-0.1 [facility] Basophils/100 WBC Auto (Bld) on 03-03-2024 Basophils/100 WBC (Bld) 0.7 % 0.2-2.0 [facility] Eosinophils/100 WBC Auto (Bl d)on 03-03-2024 Eosinophils/100 WBC (Bld) 10.8 % High 0.9-7.0 [facility] Erythrocyte distribution wid th Auto (RBC) [Ratio]on 03-03-2024 Erythrocyte distribution width (RBC) [Ratio] 13.5 % 11.0-15.0 [facility] Estimated glomerular filtrat ion rate (GFR) non- Americanon 03-03-2024 GFR/1.73 sq M.predicted among non-blacks MDRD (S/P/Bld) [Vol rate/Area] 34 mL/min/{1.73_m2} Low >=60 [facility] Globulin Calc (S) [Mass/Vol] on 03-03-2024 Globulin (S) [Mass/Vol] 3.6 g/dL F [facility] Hematocrit Auto (Bld) [Volum e fraction]on 03-03-2024 Hematocrit (Bld) [Volume fraction] 38.8 % 36.0-48.0 [facility] Hemoglobin [Mass/volume] in Bloodon 03-03-2024 Hemoglobin (Bld) [Mass/Vol] 11.9 g/dL Low 12.0-16.0 [facility] IgA [Mass/volume] in Serum o r Plasmaon 03-03-2024 IgA [Mass/Vol] 265 mg/dL 64-422 [facility] IgG [Mass/volume] in Serum o r Plasmaon 03-03-2024 IgG [Mass/Vol] 911 mg/dL [phone] [facility] IgM [Mass/volume] in Serum o r Plasmaon 03-03-2024 IgM [Mass/Vol] 64 mg/dL 26-217 [facility] Immunoglobulin light chains. kappa.free [Mass/volume] in Serumon 03-03-2024 Immunoglobulin light chains.kappa.free (S) [Mass/Vol] 44.7 mg/L Abnormal 3.3-19.4 [facility] Immunoglobulin light chains. kappa.free/Immunoglobulin light chains.lambda.free [Yanelis 03-03-2024 Immunoglobulin light chains.kappa.free/Immun oglobulin light chains.lambda.free (S) [Mass ratio] 1.16 0.26-1.65 [facility] Comment on above: Performed at: [address] [id number] Director: Junaid Sawyer PhD, Phone: [phone] Immunoglobulin light chains. lambda.free [Mass/volume] in Serum or Plasmaon 03-03-2024 Immunoglobulin light chains.lambda.free [Mass/Vol] 38.7 mg/L Abnormal 5.7-26.3 [facility] Iron binding capacity [Mass/ volume] in Serum or Plasmaon 03-03-2024 Iron binding capacity [Mass/Vol] 338.0 ug/dL 250.0-450. 0 [facility] Iron saturation [Mass Fracti on] in Serum or Plasmaon 03-03-2024 Iron saturation [Mass fraction] 7.7 % [facility] Laboratory - Chemistry and C hemistry - challengeon 03-03-2024 Albumin [Mass/Vol] 3.3 g/dL Low 3.4-5.0 [facility] ALP [Catalytic activity/Vol] 155 U/L High 46-116 [facility] ALT [Catalytic activity/Vol] 21 U/L 14-59 [facility] AST [Catalytic activity/Vol] 25 U/L 15-37 [facility] Bilirubin [Mass/Vol] 0.4 mg/dL 0.2-1.0 [facility] Calcium [Mass/Vol] 9.0 mg/dL 8.5-10.1 [facility] Chloride [Moles/Vol] 106 mmol/L 98-107 [facility] CO2 [Moles/Vol] 21.4 mmol/L 21.0-32.0 [facility] Cobalamin (Vitamin B12) [Mass/Vol] 495.0 pg/mL 193.0-986. 0 [facility] Creatinine [Mass/Vol] 1.50 mg/dL High 0.55-1.02 [facility] Ferritin [Mass/Vol] 19.0 ng/mL 8.0-252.0 [facility] GFR/1.73 sq M.predicted MDRD (S/P/Bld) [Vol rate/Area] 41 mL/min/{1.73_m2} Low >=60 [facility] Glucose [Mass/Vol] 113 mg/dL High 74-106 [facility] Iron [Mass/Vol] 26.0 ug/dL Low 50.0-170.0 [facility] Potassium [Moles/Vol] 4.3 mmol/L 3.5-5.1 [facility] Protein [Mass/Vol] 6.9 g/dL 6.4-8.2 [facility] Sodium [Moles/Vol] 139 mmol/L 136-145 [facility] Urea nitrogen [Mass/Vol] 25.0 mg/dL High 7.0-18.0 [facility] Urea nitrogen/Creatinine [Mass ratio] 16.7 mg/mg [facility] Laboratory - Hematology and Cell countson 03-03-2024 Immature granulocytes/100 WBC (Bld) 0.0 % 0.0-0.5 [facility] Leukocytes [#/volume] correc tanesha for nucleated erythrocytes in Blood by Automated counon 03-03-2024 WBC corrected for nucl RBC Auto (Bld) [#/Vol] 2.8 10 3/uL Low 4.0-11.0 [facility] Lymphocytes Auto (Bld) [#/Vo l]on 03-03-2024 Lymphocytes (Bld) [#/Vol] 0.8 10 3/uL Low 1.2-3.8 [facility] Lymphocytes/100 WBC Auto (Bl d)on 03-03-2024 Lymphocytes/100 WBC (Bld) 27.6 % 20.5-60.0 [facility] MCH Auto (RBC) [Entitic mass ]on 03-03-2024 MCH (RBC) [Entitic mass] 28.8 pg 26.7-34.0 [facility] MCHC Auto (RBC) [Mass/Vol]on 03-03-2024 MCHC (RBC) [Mass/Vol] 30.7 g/dL 29.9-35.2 [facility] MCV Auto (RBC) [Entitic vol] on 03-03-2024 MCV (RBC) [Entitic vol] 93.9 fL 81.0-99.0 F [facility] Monocytes Auto (Bld) [#/Vol] on 03-03-2024 Monocytes (Bld) [#/Vol] 0.3 10 3/uL 0.3-0.8 [facility] Monocytes/100 WBC Auto (Bld) on 03-03-2024 Monocytes/100 WBC (Bld) 9.7 % 1.7-12.0 [facility] Neutrophils Auto (Bld) [#/Vo l]on 03-03-2024 Neutrophils (Bld) [#/Vol] 1.4 10 3/uL 1.4-6.5 [facility] Neutrophils/100 WBC Auto (Bl d)on 03-03-2024 Neutrophils/100 WBC (Bld) 51.2 % 43.0-75.0 [facility] No Panel Informationon 03-03 Eosinophils # (Auto) 0.3 10 3/uL 0.0-0.7 [facility] Folate 9.50 ng/mL 8.60-58.90 [facility] Immature Granulocyte # (Auto) 0.00 10 3/uL 0.00-0.03 [facility] Protein Electrophoresis M-Miguel Not Observed g/dL Not Observed [facility] Protein Electrophoresis Note Comment . [facility] Comment on above: Protein electrophore sis scan will follow via computer,mail, or trimmer tailer delivery. Platelet mean volume Auto (B ld) [Entitic vol]on 03-03-2024 Platelet mean volume (Bld) [Entitic vol] 9.4 fL Low 9.5-13.5 [facility] Platelets Auto (Bld) [#/Vol] on 03-03-2024 Platelets (Bld) [#/Vol] 203 10 3/uL 150-450 [facility] Protein [Mass/volume] in Ser um or Plasmaon 03-03-2024 Protein [Mass/Vol] 6.2 g/dL 6.0-8.5 [facility] RBC Auto (Bld) [#/Vol]on RBC (Bld) [#/Vol] 4.13 10 6/uL Low 4.20-5.40 [facility] Serum globulin measurement ( mass/volume)on 03-03-2024 Globulin (S) [Mass/Vol] 2.7 g/dL 2.2-3.9 [facility] Serum or plasma albumin/glob ulin mass ratioon 03-03-2024 Albumin/Globulin [Mass ratio] 0.9 {ratio} [facility] Albumin/Globulin [Mass ratio] 1.3 {ratio} 0.7-1.7 [facility] Serum or plasma alpha 1 glob ulin measurement by electrophoresis (mass/volume)on 03-03-2024 Alpha 1 globulin Elph [Mass/Vol] 0.3 g/dL 0.0-0.4 [facility] Serum or plasma alpha 2 glob ulin measurement by electrophoresis (mass/volume)on 03-03-2024 Alpha 2 globulin Elph [Mass/Vol] 0.7 g/dL 0.4-1.0 [facility] Serum or plasma anion gap de terminationon 03-03-2024 Anion gap [Moles/Vol] 15.9 mmol/L [facility] Serum or plasma beta globuli n measurement by electrophoresis (mass/volume)on 03-03-2024 Beta globulin Elph [Mass/Vol] 1.0 g/dL 0.7-1.3 [facility] Serum or plasma gamma globul in measurement by electrophoresis (mass/volume)on 03-03-2024 Gamma globulin Elph [Mass/Vol] 0.8 g/dL 0.4-1.8 [facility] Serum or plasma immunoelectr ophoresis interpretationon 03-03-2024 Interpretation IEP [Interp] Comment . [facility] Comment on above: No monoclonality det ected. Estimated glomerular filtrat ion rate (GFR) non- Americanon 02-10-2024 GFR/1.73 sq M.predicted among non-blacks MDRD (S/P/Bld) [Vol rate/Area] 27 mL/min/{1.73_m2} >=60 [facility] Globulin Calc (S) [Mass/Vol] on 02-10-2024 Globulin (S) [Mass/Vol] 3.7 g/dL F [facility] Laboratory - Chemistry and C hemistry - challengeon 02-10-2024 Albumin [Mass/Vol] 3.3 g/dL 3.4-5.0 [facility] ALP [Catalytic activity/Vol] 174 U/L 46-116 [facility] ALT [Catalytic activity/Vol] 24 U/L 14-59 [facility] Amylase [Catalytic activity/Vol] 16 U/L 25-115 [facility] AST [Catalytic activity/Vol] 19 U/L 15-37 [facility] Bilirubin [Mass/Vol] 0.4 mg/dL 0.2-1.0 [facility] Calcium [Mass/Vol] 8.6 mg/dL 8.5-10.1 [facility] Chloride [Moles/Vol] 107 mmol/L 98-107 [facility] CO2 [Moles/Vol] 26.8 mmol/L 21.0-32.0 [facility] Creatinine [Mass/Vol] 1.81 mg/dL 0.55-1.02 [facility] GFR/1.73 sq M.predicted MDRD (S/P/Bld) [Vol rate/Area] 33 mL/min/{1.73_m2} >=60 [facility] Glucose [Mass/Vol] 85 mg/dL 74-106 [facility] Lipase [Catalytic activity/Vol] 13.0 U/L 16.0-77.0 [facility] Potassium [Moles/Vol] 4.6 mmol/L 3.5-5.1 [facility] Protein [Mass/Vol] 7.0 g/dL 6.4-8.2 [facility] Sodium [Moles/Vol] 143 mmol/L 136-145 [facility] Urea nitrogen [Mass/Vol] 25.0 mg/dL 7.0-18.0 [facility] Urea nitrogen/Creatinine [Mass ratio] 13.8 mg/mg [facility] Serum or plasma albumin/glob ulin mass ratioon 02-10-2024 Albumin/Globulin [Mass ratio] 0.9 {ratio} [facility] Serum or plasma anion gap de terminationon 02-10-2024 Anion gap [Moles/Vol] 13.8 mmol/L [facility] Serum or plasma cancer antig en 19-9 measurement (units/volume)on 02-10-2024 Cancer Ag 19-9 Qn 13 [arb'U]/mL 0-35 [facility] Comment on above: [facility] El ectrochemiluminescence Immunoassay(ECLIA)Values obtained with different assay methods or kits cannotbe used interchangeably. Results cannot be interpreted asabsolute evidence of the presence or absence of malignantdisease.Performed at: [facility] [address] [id number] Director: Junaid Sawyer PhD, Phone: [phone] No Panel Informationon 09-08 BLANK _ [facility] Implant Date 05/22/2015 [facility] Model 5076 CapSureFix [facility] CHECKon AV Delay Adaptive Paced Minimum (ms) 180 ms [facility] AV Delay Adaptive Sensed Minimum (ms) 150 ms [facility] AV Delay Adaptive Status DISABLED [facility] Battery Voltage (volts) 2.94 V [facility] Godfrey RA Pacing Amplitude (volts) 1.5 V [facility] Godfrey RA Pacing Polarity BI [facility] Godfrey RA Pacing Pulse Width (ms) 0.4 ms [facility] Godfrey RA Sensing Amplitude (mvolts) 0.3 mV [facility] Godfrey RA Sensing Blanking Period (ms) 150 ms [facility] Godfrey RA Sensing Polarity BI [facility] Godfrey RA Sensing Refractory Period (ms) Auto [facility] Godfrey RV Pacing Amplitude (volts) 2 V [facility] Godfrey RV Pacing Polarity BI [facility] Godfrey RV Pacing Pulse Width (ms) 0.4 ms [facility] Godfrey RV Sensing Amplitude (mvolts) 0.9 mV [facility] Godfrey RV Sensing Blanking Period (ms) 200 ms [facility] Godfrey RV Sensing Polarity BI [facility] Hysteresis Rate (bpm) DISABLED [facility] Lead1 Mfg MDT [facility] Lead2 Mfg MDT [facility] Location RV [facility] Location RA [facility] Lower Rate (bpm) 60 {beats}/min [facility] Max Sensor Rate (bmp) 130 {beats}/min [facility] Model [id number] COBOS [facility] PM-Device Mfg MDT [facility] PM-Percent Pacing (A) 99.4 % [facility] PM-Percent Pacing (V) 0.24 % [facility] PM-PMT Intervention ENABLED [facility] PM-PVC Intervention ENABLED [facility] PM-Rate Modulation Acceleration Reaction 30 s [facility] PM-Rate Modulation ADL Rate (bpm) 100 {beats}/min [facility] PM-Rate Modulation Deceleration Exercise [facility] PM-Rate Modulation Threshold MediumLow [facility] RA Bipolar Impedance ohms 456 ohm [facility] RA Unipolar Impedance ohms 418 ohm [facility] RV Bipolar Impedance ohms 551 ohm [facility] RV Unipolar Impedance 532 ohm [facility] Serial Number [id number] [facility] Serial Number [id number] [facility] Serial Number [id number] [facility] Thresh RA Capture Amplitude (volts) 0.5 V [facility] Thresh RA Capture Duration (ms) 0.4 ms [facility] Thresh RA Sensing Amplitude (mvolts) 1.5 mV [facility] Thresh RV Capture Amplitude (volts) 0.75 V [facility] Thresh RV Capture Duration (ms) 0.4 ms [facility] Thresh RV Sensing Amplitude (mvolts) 13.125 mV [facility] Tracking Rate (bpm) 130 {beats}/min [facility] Basophils Auto (Bld) [#/Vol] Ordered By: Niki Weeks on 08-05-2023 Basophils (Bld) [#/Vol] 0.0 10*3/uL 0.0-0.2 [facility] Basophils/100 WBC Auto (Bld) Ordered By: Niki Weeks on 08-05-2023 Basophils/100 WBC (Bld) 0.2 % . F [facility] Calcium [Mass/volume] in Ser um or PlasmaOrdered By: Niki Weeks on 08-05-2023 Calcium [Mass/Vol] 8.1 mg/dL 8.6-10.3 [facility] Carbon dioxide, total [Moles /volume] in Serum or PlasmaOrdered By: Niki Weeks on 08-05-2023 CO2 [Moles/Vol] 25.2 mmol/L 21.0-31.0 [facility] Chloride [Moles/volume] in S akila or PlasmaOrdered By: Niki Weeks on 08-05-2023 Chloride [Moles/Vol] 111 mmol/L 98-107 [facility] Creatinine [Mass/volume] in Serum or PlasmaOrdered By: Niki Weeks on 08-05-2023 Creatinine [Mass/Vol] 1.43 mg/dL 0.60-1.20 [facility] Eosinophils Auto (Bld) [#/Vo l]Ordered By: Niki Weeks on 08-05-2023 Eosinophils (Bld) [#/Vol] 0.1 10*3/uL 0.0-0.45 [facility] Eosinophils/100 WBC Auto (Bl d)Ordered By: Niki Weeks on 08-05-2023 Eosinophils/100 WBC (Bld) 1.7 % . [facility] Erythrocyte distribution wid th Auto (RBC) [Ratio]Ordered By: Niki Weeks on 08-05-2023 Erythrocyte distribution width (RBC) [Ratio] 13.5 % 11.9-15.3 [facility] Glucose [Mass/volume] in Ser um or PlasmaOrdered By: Niki Weeks on 08-05-2023 Glucose [Mass/Vol] 121 mg/dL 70-100 [facility] Comment on above: ADA recommended refe rence rangeRandom Glucose Reference Range is dependent on time and content of last meal. Glucose of more than 200 mg/dL in a nonstressed, ambulatory subject supports the diagnosis of Diabetes Mellitus. Hematocrit Auto (Bld) [Volum e fraction]Ordered By: Niki Weeks on 08-05-2023 Hematocrit (Bld) [Volume fraction] 29.9 % 34.0-46.4 [facility] Hemoglobin [Mass/volume] in BloodOrdered By: Niki Weeks 08-05-2023 Hemoglobin (Bld) [Mass/Vol] 10.0 g/dL 11.8-15.4 [facility] Leukocytes [#/volume] correc tanesha for nucleated erythrocytes in Blood by Automated counOrdered By: Niki Weeks on 08-05-2023 WBC corrected for nucl RBC Auto (Bld) [#/Vol] 7.3 10*3/uL 3.8-11.6 [facility] Lymphocytes Auto (Bld) [#/Vo l]Ordered By: Niki Blades on 08-05-2023 Lymphocytes (Bld) [#/Vol] 0.9 10*3/uL 1.00-4.8 [facility] Lymphocytes/100 WBC Auto (Bl d)Ordered By: Niki Blades on 08-05-2023 Lymphocytes/100 WBC (Bld) 11.8 % . [facility] MCH Auto (RBC) [Entitic mass ]Ordered By: Niki Blades on 08-05-2023 MCH (RBC) [Entitic mass] 31.9 pg 24.7-34.3 [facility] MCHC Auto (RBC) [Mass/Vol]Or dered By: Niki Blades on 08-05-2023 MCHC (RBC) [Mass/Vol] 33.5 g/dL 32.0-35.0 [facility] MCV Auto (RBC) [Entitic vol] Ordered By: Niki Blades on 08-05-2023 MCV (RBC) [Entitic vol] 95.1 fL 80-100 [facility] Monocytes Auto (Bld) [#/Vol] Ordered By: Niki Blades on 08-05-2023 Monocytes (Bld) [#/Vol] 0.7 10*3/uL 0.0-0.8 [facility] Monocytes/100 WBC Auto (Bld) Ordered By: Niki Blades on 08-05-2023 Monocytes/100 WBC (Bld) 9.2 % . [facility] Neutrophils Auto (Bld) [#/Vo l]Ordered By: Niki Blades on 08-05-2023 Neutrophils (Bld) [#/Vol] 5.6 10*3/uL 1.8-7.7 [facility] Neutrophils/100 WBC Auto (Bl d)Ordered By: Niki Blades on 08-05-2023 Neutrophils/100 WBC (Bld) 77.1 % . [facility] No Panel InformationOrdered By: Niki Blades on 08-05-2023 Estimated GFR (CKD-EPI) 38.727 mL/Min [facility] Creatinine Clearance (Chem 38.09 [facility] Nucleated erythrocytes [Pres ence] in Blood by Automated countOrdered By: Niki Blades on 08-05-2023 Nucleated RBC Auto Ql (Bld) 0.4 /100{WBC} 0-0.5 [facility] Platelet mean volume Auto (B ld) [Entitic vol]Ordered By: Niki Blades on 08-05-2023 Platelet mean volume (Bld) [Entitic vol] 7.6 fL 6.3-10.7 [facility] Platelets Auto (Bld) [#/Vol] Ordered By: Niki Blades on 08-05-2023 Platelets (Bld) [#/Vol] 147 10*3/uL 150-450 [facility] Potassium [Moles/volume] in Serum or PlasmaOrdered By: Niki Blades on 08-05-2023 Potassium [Moles/Vol] 4.4 mmol/L 3.5-5.1 [facility] RBC Auto (Bld) [#/Vol]Ordere d By: Niki Blades on 08-05-2023 RBC (Bld) [#/Vol] 3.14 10*6/uL 3.60-5.00 [facility] Serum or plasma anion gap de terminationOrdered By: Niki Blades on 08-05-2023 Anion gap [Moles/Vol] 7.2 mmol/L 6.0-15.0 [facility] Sodium [Moles/volume] in Ser um or PlasmaOrdered By: Niki Blades on 08-05-2023 Sodium [Moles/Vol] 139 mmol/L 136-145 [facility] Urea nitrogen [Mass/volume] in Serum or PlasmaOrdered By: Niki Blades on 08-05-2023 Urea nitrogen [Mass/Vol] 25 mg/dL 7-25 [facility] WBC Auto (Bld) [#/Vol]Ordere d By: Niki Blades on 08-05-2023 WBC (Bld) [#/Vol] 7.3 10*3/uL 3.8-11.6 [facility] Activated partial thrombopla stin time (aPTT) in platelet poor plasma by coagulation aOrdered By: Cj Gamboa on 08-03-2023 aPTT Coag (PPP) [Time] 44.3 s 25.1-36.5 [facility] Comment on above: A hematocrit value g reater than 55% may lead to inaccurate results in coagulation testing. Patients having hematocrit values >55% require a special collection tube for coagulation studies. Please contact the laboratory at [phone] for redraw instructions. INR in Platelet poor plasma by Coagulation assayOrdered By: Cj Gamboa on 08-03-2023 INR Coag (PPP) [Relative time] 2.1 {INR} [facility] Comment on above: INR Therapeutic Rang e [...] PT Coag (PPP) [Time] 24.8 s 9.0-12.9 [facility] Comment on above: A hematocrit value g reater than 55% may lead to inaccurate results in coagulation testing. Patients having hematocrit values >55% require a special collection tube for coagulation studies. Please contact the laboratory at [phone] for redraw instructions. Basophils Auto (Bld) [#/Vol] Ordered By: Niki Weeks on 07-20-2023 Basophils (Bld) [#/Vol] 0.0 10*3/uL 0.0-0.2 [facility] Basophils/100 WBC Auto (Bld) Ordered By: Niki Weeks on 07-20-2023 Basophils/100 WBC (Bld) 0.6 % . [facility] Bilirubin Test strip Ql (U)O rdered By: Niki Weeks on 07-20-2023 Bilirubin Ql (U) Negative Negative [facility] Calcium [Mass/volume] in Ser um or PlasmaOrdered By: Niki Blades on 07-20-2023 Calcium [Mass/Vol] 8.6 mg/dL 8.6-10.3 [facility] Carbon dioxide, total [Moles /volume] in Serum or PlasmaOrdered By: Niki Blades on 07-20-2023 CO2 [Moles/Vol] 26.3 mmol/L 21.0-31.0 [facility] Chloride [Moles/volume] in S akila or PlasmaOrdered By: Niki Blades on 07-20-2023 Chloride [Moles/Vol] 109 mmol/L 98-107 [facility] Color Auto (U)Ordered By: Simpson Blades on 07-20-2023 Color (U) Yellow Yellow [facility] Creatinine [Mass/volume] in Serum or PlasmaOrdered By: Niki Blades on 07-20-2023 Creatinine [Mass/Vol] 1.52 mg/dL 0.60-1.20 [facility] Eosinophils Auto (Bld) [#/Vo l]Ordered By: Niki Blades on 07-20-2023 Eosinophils (Bld) [#/Vol] 0.3 10*3/uL 0.0-0.45 [facility] Eosinophils/100 WBC Auto (Bl d)Ordered By: Niki Blades on 07-20-2023 Eosinophils/100 WBC (Bld) 4.9 % . [facility] Erythrocyte distribution wid th Auto (RBC) [Ratio]Ordered By: Niki Blades on 07-20-2023 Erythrocyte distribution width (RBC) [Ratio] 13.5 % 11.9-15.3 [facility] Glucose [Mass/volume] in Ser um or PlasmaOrdered By: Niki Blades on 07-20-2023 Glucose [Mass/Vol] 120 mg/dL 70-100 [facility] Comment on above: ADA recommended refe rence rangeRandom Glucose Reference Range is dependent on time and content of last meal. Glucose of more than 200 mg/dL in a nonstressed, ambulatory subject supports the diagnosis of Diabetes Mellitus. Hematocrit Auto (Bld) [Volum e fraction]Ordered By: Niki Weeks on 07-20-2023 Hematocrit (Bld) [Volume fraction] 38.3 % 34.0-46.4 [facility] Hemoglobin [Mass/volume] in BloodOrdered By: Niki Blades on 07-20-2023 Hemoglobin (Bld) [Mass/Vol] 12.6 g/dL 11.8-15.4 [facility] Ketones Auto test strip (U) [Mass/Vol]Ordered By: Niki Rms on 07-20-2023 Ketones (U) [Mass/Vol] Negative Negative [facility] Leukocytes [#/volume] correc tanesha for nucleated erythrocytes in Blood by Automated counOrdered By: Niki Blades on 07-20-2023 WBC corrected for nucl RBC Auto (Bld) [#/Vol] 5.2 10*3/uL 3.8-11.6 [facility] Lymphocytes Auto (Bld) [#/Vo l]Ordered By: Niki Blades on 07-20-2023 Lymphocytes (Bld) [#/Vol] 0.7 10*3/uL 1.00-4.8 [facility] Lymphocytes/100 WBC Auto (Bl d)Ordered By: Niki Blades on 07-20-2023 Lymphocytes/100 WBC (Bld) 13.8 % . [facility] MCH Auto (RBC) [Entitic mass ]Ordered By: Niki Blades on 07-20-2023 MCH (RBC) [Entitic mass] 30.9 pg 24.7-34.3 [facility] MCHC Auto (RBC) [Mass/Vol]Or dered By: Niki Blades on 07-20-2023 MCHC (RBC) [Mass/Vol] 33.0 g/dL 32.0-35.0 [facility] MCV Auto (RBC) [Entitic vol] Ordered By: Niki Blades on 07-20-2023 MCV (RBC) [Entitic vol] 93.7 fL 80-100 F [facility] Monocytes Auto (Bld) [#/Vol] Ordered By: Niki Blades on 07-20-2023 Monocytes (Bld) [#/Vol] 0.4 10*3/uL 0.0-0.8 [facility] Monocytes/100 WBC Auto (Bld) Ordered By: Niki Weeks on 07-20-2023 Monocytes/100 WBC (Bld) 6.9 % . F [facility] Neutrophils Auto (Bld) [#/Vo l]Ordered By: Niki Weeks on 07-20-2023 Neutrophils (Bld) [#/Vol] 3.8 10*3/uL 1.8-7.7 [facility] Neutrophils/100 WBC Auto (Bl d)Ordered By: Niki Weeks on 07-20-2023 Neutrophils/100 WBC (Bld) 73.8 % . [facility] Nitrite Test strip Ql (U)Ord ered By: Niki Weeks on 07-20-2023 Nitrite Ql (U) Negative Negative [facility] No Panel InformationOrdered By: Niki Weeks on 07-20-2023 Estimated GFR (CKD-EPI) 35.992 mL/Min [facility] Creatinine Clearance (Chem N/A [facility] Nucleated erythrocytes [Pres ence] in Blood by Automated countOrdered By: Niki Weeks on 07-20-2023 Nucleated RBC Auto Ql (Bld) 0.1 /100{WBC} 0-0.5 [facility] Platelet mean volume Auto (B ld) [Entitic vol]Ordered By: Niki Weeks on 07-20-2023 Platelet mean volume (Bld) [Entitic vol] 7.2 fL 6.3-10.7 [facility] Platelets Auto (Bld) [#/Vol] Ordered By: Niki Weeks on 07-20-2023 Platelets (Bld) [#/Vol] 194 10*3/uL 150-450 [facility] Potassium [Moles/volume] in Serum or PlasmaOrdered By: Niki Weeks on 07-20-2023 Potassium [Moles/Vol] 4.6 mmol/L 3.5-5.1 [facility] Protein Auto test strip (U) [Mass/Vol]Ordered By: Niki Weeks on 07-20-2023 Protein (U) [Mass/Vol] Negative Negative [facility] RBC Auto (Bld) [#/Vol]Ordere d By: Niki Weeks on 07-20-2023 RBC (Bld) [#/Vol] 4.09 10*6/uL 3.60-5.00 [facility] Serum or plasma anion gap de terminationOrdered By: Niki Weeks on 07-20-2023 Anion gap [Moles/Vol] 9.3 mmol/L 6.0-15.0 [facility] Sodium [Moles/volume] in Ser um or PlasmaOrdered By: Niki Weeks on 07-20-2023 Sodium [Moles/Vol] 140 mmol/L 136-145 [facility] Specific gravity Auto test s trip (U) [Rel density]Ordered By: Niki Weeks on 07-20-2023 Specific gravity (U) [Rel density] 1.021 1.001-1.03 0 [facility] Urea nitrogen [Mass/volume] in Serum or PlasmaOrdered By: Niki Weeks on 07-20-2023 Urea nitrogen [Mass/Vol] 30 mg/dL 7-25 [facility] Urine clarity by refractomet ry automatedOrdered By: Niki Weeks on 07-20-2023 Clarity Refractometry automated (U) Clear Clear [facility] Urine glucose measurement by automated test strip (mass/volume)Ordered By: Niki Weeks on 07-20-2023 Glucose Auto test strip (U) [Mass/Vol] Normal mg/dL Normal [facility] Urine hemoglobin detection b y automated test stripOrdered By: Niki Weeks on 07-20-2023 Hemoglobin Auto test strip Ql (U) Negative Negative [facility] Urine leukocyte esterase det ection by automated test stripOrdered By: Niki Weeks on 07-20-2023 Leukocyte esterase Auto test strip Ql (U) Negative Negative [facility] Urobilinogen Auto test strip (U) [Mass/Vol]Ordered By: Niki Weeks on 07-20-2023 Urobilinogen (U) [Mass/Vol] Normal mg/dL Normal [facility] WBC Auto (Bld) [#/Vol]Ordere d By: Niki Weeks on 07-20-2023 WBC (Bld) [#/Vol] 5.2 10*3/uL 3.8-11.6 [facility] pH Auto test strip (U)Ordere d By: Niki Weeks on 07-20-2023 pH (U) 5.5 [pH] 5.0-9.0 [facility] No Panel Informationon 06-16 BLANK _ [facility] Implant Date 05/22/2015 [facility] Model 5076 CapSureFix [employer] [facility] PACEMAKER REMOTE CHECKon AV Delay Adaptive Paced Minimum (ms) 180 ms [facility] AV Delay Adaptive Sensed Minimum (ms) 150 ms [facility] AV Delay Adaptive Status DISABLED [facility] Battery Voltage (volts) 2.94 V [facility] Godfrey RA Pacing Amplitude (volts) 1.5 V [facility] RA Pacing Polarity BI [facility] RA Pacing Pulse Width (ms) 0.4 ms [facility] RA Sensing Amplitude (mvolts) 0.3 mV [facility] RA Sensing Blanking Period (ms) 150 ms [facility] RA Sensing Polarity BI [facility] RA Sensing Refractory Period (ms) Auto [facility] RV Pacing Amplitude (volts) 2 V [facility] RV Pacing Polarity BI [facility] RV Pacing Pulse Width (ms) 0.4 ms [facility] RV Sensing Amplitude (mvolts) 0.9 mV [facility] RV Sensing Blanking Period (ms) 200 ms [facility] RV Sensing Polarity BI [facility] Hysteresis Rate (bpm) DISABLED [facility] Lead1 Jorge KELLER [facility] Lead2 Jorge KELLER [facility] Location RV [facility] Location RA [facility] Lower Rate (bpm) 60 {beats}/min [facility] Max Sensor Rate (bmp) 130 {beats}/min [facility] Model [id number] COBOS [facility] PM-Device Jorge KELLER [facility] PM-Percent Pacing (A) 99.76 % [facility] PM-Percent Pacing (V) 0.11 % [facility] PM-PMT Intervention ENABLED [facility] PM-PVC Intervention ENABLED [facility] PM-Rate Modulation Acceleration Reaction 30 s [facility] PM-Rate Modulation ADL Rate (bpm) 100 {beats}/min [facility] PM-Rate Modulation Deceleration Exercise [facility] PM-Rate Modulation Threshold MediumLow [facility] RA Bipolar Impedance ohms 437 ohm [facility] RA Unipolar Impedance ohms 399 ohm [facility] RV Bipolar Impedance ohms 532 ohm [facility] RV Unipolar Impedance 494 ohm [facility] Serial Number [id number] [facility] Serial Number [id number] [facility] Serial Number [id number] [facility] Thresh RA Capture Amplitude (volts) 0.5 V [facility] Thresh RA Capture Duration (ms) 0.4 ms [facility] Thresh RA Sensing Amplitude (mvolts) 2.25 mV [facility] Thresh RV Capture Amplitude (volts) 0.75 V [facility] Thresh RV Capture Duration (ms) 0.4 ms [facility] Thresh RV Sensing Amplitude (mvolts) 12.875 mV [facility] Tracking Rate (bpm) 130 {beats}/min [facility] Creatinine (Bld) [Mass/Vol]O rdered By: Broderick Howard on 06-04-2023 Creatinine [Mass/Vol] 1.6 mg/dL 0.6-1.3 [facility] Comment on above: ER/ESD physician is notified/shown all ISTAT results.Critical values may be confirmed by laboratory testing ifdeemed necessary by ER attending doctor. No Panel Informationon 02-24 BLANK _ [facility] Implant Date 05/22/2015 [facility] Model 5076 CapSureFix [employer] [facility] PACEMAKER REMOTE CHECKon AV Delay Adaptive Paced Minimum (ms) 180 ms [facility] AV Delay Adaptive Sensed Minimum (ms) 150 ms [facility] AV Delay Adaptive Status DISABLED [facility] Battery Voltage (volts) 2.95 V [facility] Godfrey RA Pacing Amplitude (volts) 1.5 V [facility] Godfrey RA Pacing Polarity BI [facility] Godfrey RA Pacing Pulse Width (ms) 0.4 ms [facility] Godfrey RA Sensing Amplitude (mvolts) 0.3 mV [facility] Godfrey RA Sensing Blanking Period (ms) 150 ms [facility] Godfrey RA Sensing Polarity BI [facility] RA Sensing Refractory Period (ms) Auto [facility]frey RV Pacing Amplitude (volts) 2 V [facility] Godfrey RV Pacing Polarity BI [facility]frey RV Pacing Pulse Width (ms) 0.4 ms [facility] Godfrey RV Sensing Amplitude (mvolts) 0.9 mV [facility] Godfrey RV Sensing Blanking Period (ms) 200 ms [facility] RV Sensing Polarity BI [facility] Hysteresis Rate (bpm) DISABLED [facility] Lead1 Mfg MDT [facility] Lead2 Mfg MDT [facility] Location RV [facility] Location RA [facility] Lower Rate (bpm) 60 {beats}/min [facility] Max Sensor Rate (bmp) 130 {beats}/min [facility] Model [id number] PAPITO [facility] PM-Device Mfg MDT [facility] PM-Percent Pacing (A) 99.67 % [facility] PM-Percent Pacing (V) 0.2 % [facility] PM-PMT Intervention ENABLED [facility] PM-PVC Intervention ENABLED [facility] PM-Rate Modulation Acceleration Reaction 30 s [facility] PM-Rate Modulation ADL Rate (bpm) 100 {beats}/min [facility] PM-Rate Modulation Deceleration Exercise [facility] PM-Rate Modulation Threshold MediumLow [facility] RA Bipolar Impedance ohms 418 ohm [facility] RA Unipolar Impedance ohms 380 ohm [facility] RV Bipolar Impedance ohms 532 ohm [facility] RV Unipolar Impedance 494 ohm [facility] Serial Number [id number] [facility] Serial Number [id number] [facility] Serial Number [id number] [facility] Thresh RA Capture Amplitude (volts) 0.5 V [facility] Thresh RA Capture Duration (ms) 0.4 ms [facility] Thresh RA Sensing Amplitude (mvolts) 2.25 mV [facility] Thresh RV Capture Amplitude (volts) 0.875 V [facility] Thresh RV Capture Duration (ms) 0.4 ms [facility] Thresh RV Sensing Amplitude (mvolts) 12.875 mV [facility] Tracking Rate (bpm) 130 {beats}/min [facility] No Panel Informationon 11-26 BLANK _ [facility] Implant Date 05/22/2015 [facility] Model 5076 [employer] [facility] PACEMAKER REMOTE CHECKon AV Delay Adaptive Paced Minimum (ms) 180 ms [facility] AV Delay Adaptive Sensed Minimum (ms) 150 ms [facility] AV Delay Adaptive Status DISABLED [facility] Battery Voltage (volts) 2.96 V [facility] Godfrey RA Pacing Amplitude (volts) 1.5 V [facility] Godfrey RA Pacing Polarity BI [facility] Godfrey RA Pacing Pulse Width (ms) 0.4 ms [facility] Godfrey RA Sensing Amplitude (mvolts) 0.3 mV [facility] Godfrey RA Sensing Blanking Period (ms) 150 ms [facility] Godfrey RA Sensing Polarity BI [facility] RA Sensing Refractory Period (ms) Auto [facility] Godfrey RV Pacing Amplitude (volts) 2 V [facility]frey RV Pacing Polarity BI [facility]frey RV Pacing Pulse Width (ms) 0.4 ms [facility] Godfrey RV Sensing Amplitude (mvolts) 0.9 mV [facility] Godfrey RV Sensing Blanking Period (ms) 200 ms [facility] RV Sensing Polarity BI [facility] Hysteresis Rate (bpm) DISABLED [facility] Lead1 Mfg MDT [facility] Lead2 Mfg MDT [facility] Location RV [facility] Location RA [facility] Lower Rate (bpm) 60 {beats}/min [facility] Max Sensor Rate (bmp) 130 {beats}/min [facility] Model [id number] COBOS [facility] PM-Device Mfg MDT [facility] PM-Percent Pacing (A) 99.43 % [facility] PM-Percent Pacing (V) 0.17 % [facility] PM-PMT Intervention ENABLED [facility] PM-PVC Intervention ENABLED [facility] PM-Rate Modulation Acceleration Reaction 30 s [facility] PM-Rate Modulation ADL Rate (bpm) 100 {beats}/min [facility] PM-Rate Modulation Deceleration Exercise [facility] PM-Rate Modulation Threshold MediumLow [facility] RA Bipolar Impedance ohms 437 ohm [facility] RA Unipolar Impedance ohms 399 ohm [facility] RV Bipolar Impedance ohms 532 ohm [facility] RV Unipolar Impedance 494 ohm [facility] Serial Number [id number] [facility] Serial Number [id number] [facility] Serial Number [id number] [facility] Thresh RA Capture Amplitude (volts) 0.5 V [facility] Thresh RA Capture Duration (ms) 0.4 ms [facility] Thresh RA Sensing Amplitude (mvolts) 1.875 mV [facility] Thresh RV Capture Amplitude (volts) 0.75 V [facility] Thresh RV Capture Duration (ms) 0.4 ms [facility] Thresh RV Sensing Amplitude (mvolts) 11.75 mV [facility] Tracking Rate (bpm) 130 {beats}/min [facility] No Panel Informationon 08-26 BLANK _ [facility] Implant Date 05/22/2015 [facility] Model 5076 [employer] [facility] PACEMAKER REMOTE CHECKon AV Delay Adaptive Paced Minimum (ms) 180 ms [facility] AV Delay Adaptive Sensed Minimum (ms) 150 ms [facility] AV Delay Adaptive Status DISABLED [facility] Battery Voltage (volts) 2.96 V [facility] Godfrey RA Pacing Amplitude (volts) 1.5 V [facility] Godfrey RA Pacing Polarity BI [facility] Godfrey RA Pacing Pulse Width (ms) 0.4 ms [facility] Godfrey RA Sensing Amplitude (mvolts) 0.3 mV [facility] Godfrey RA Sensing Blanking Period (ms) 150 ms [facility] Godfrey RA Sensing Polarity BI [facility] Godfrey RA Sensing Refractory Period (ms) Auto [facility] Godfrey RV Pacing Amplitude (volts) 2 V [facility] Godfrey RV Pacing Polarity BI [facility] Godfrey RV Pacing Pulse Width (ms) 0.4 ms [facility] Godfrey RV Sensing Amplitude (mvolts) 0.9 mV [facility] Godfrey RV Sensing Blanking Period (ms) 200 ms [facility] Godfrey RV Sensing Polarity BI [facility] Hysteresis Rate (bpm) DISABLED [facility] Lead1 Mfg MDT [facility] Lead2 Mfg MDT [facility] Location RV [facility] Location RA [facility] Lower Rate (bpm) 60 {beats}/min [facility] Max Sensor Rate (bmp) 130 {beats}/min [facility] Model [id number] COBOS [facility] PM-Device Mfg MDGalo [facility] PM-Percent Pacing (A) 99.6 % [facility] PM-Percent Pacing (V) 0.24 % [facility] PM-PMT Intervention ENABLED [facility] PM-PVC Intervention ENABLED [facility] PM-Rate Modulation Acceleration Reaction 30 s [facility] PM-Rate Modulation ADL Rate (bpm) 100 {beats}/min [facility] PM-Rate Modulation Deceleration Exercise [facility] PM-Rate Modulation Threshold MediumLow [facility] RA Bipolar Impedance ohms 437 ohm [facility] RA Unipolar Impedance ohms 399 ohm [facility] RV Bipolar Impedance ohms 532 ohm [facility] RV Unipolar Impedance 494 ohm [facility] Serial Number [id number] [facility] Serial Number [id number] [facility] Serial Number [id number] [facility] Thresh RA Capture Amplitude (volts) 0.5 V [facility] Thresh RA Capture Duration (ms) 0.4 ms [facility] Thresh RA Sensing Amplitude (mvolts) 2.5 mV [facility] Thresh RV Capture Amplitude (volts) 0.75 V [facility] Thresh RV Capture Duration (ms) 0.4 ms [facility] Thresh RV Sensing Amplitude (mvolts) 12.125 mV [facility] Tracking Rate (bpm) 130 {beats}/min [facility] US KIDNEYS BLADDERon 022 US KIDNEYS BLADDER EXAMINATION: US [facility] BLADDER HISTORY: Chronic kidney disease due [...] EBEN BABCOCK Date: 2022-08-10 19:30 Normal [facility] UA RANDOM W/MICROSCOPICon BACTERIA NONE SEEN Normal NONE SEEN [facility] Comment on above: Performed By: #### U AMIC #### [facility] [address] [address] [address] Leah Felipe Bilirubin Ql (U) Negative Normal NEGATIVE [facility] Comment on above: Performed By: #### U AMIC #### [facility] [address] [address] [address] Leah Felipe CAST NONE SEEN Normal NONE SEEN [facility] Comment on above: Performed By: #### U AMIC #### [facility] [address] [place] [address] Dr. Leah Felipe Clarity (U) CLEAR Normal CLEAR [facility] Comment on above: Performed By: #### U AMIC #### [facility] [address] [place] [address] Dr. Leah Felipe Color (U) LT. YELLOW Normal YELLOW [facility] Comment on above: Performed By: #### U AMIC #### [facility] [address] [place] [address] Dr. Leah Felipe Crystals LM Nom (Urine sed) NONE SEEN Normal NONE SEEN [facility] Comment on above: Performed By: #### U AMIC #### [facility] [address] [place] [address] Dr. Leah Felipe Epithelial cells LM Ql (Urine sed) FEW Abnormal NONE SEEN /RARE [facility] Comment on above: Performed By: #### U AMIC #### [facility] [address] [place] [address] Dr. Leah Felipe Glucose Ql (U) Negative Normal NEGATIVE [facility] Comment on above: Performed By: #### U AMIC #### [facility] [address] [place] [address] Dr. Leah Felipe Hemoglobin Ql (U) Negative Normal NEGATIVE [facility] Comment on above: Performed By: #### U AMIC #### [facility] [address] [place] [address] Dr. Leah Felipe Ketones Ql (U) Negative Normal NEGATIVE [facility] Comment on above: Performed By: #### U AMIC #### [facility] [address] [place] [address] Dr. Leah Felipe LEUKOCYTES Negative Normal NEGATIVE [facility] Comment on above: Performed By: #### U AMIC #### [facility] [address] [place] [address] Dr. Leah Felipe MUCOUS NONE SEEN Normal NONE SEEN [facility] Comment on above: Performed By: #### U AMIC #### [facility] [address] [place] [address] Dr. Leah Felipe Nitrite Ql (U) Negative Normal NEGATIVE [facility] Comment on above: Performed By: #### U AMIC #### [facility] [address] [place] [address] Dr. Leah Felipe pH (U) 6.0 [pH] Normal 5-9 [facility] Comment on above: Performed By: #### U AMIC #### [facility] [address] [place] [address] Dr. Leah Felipe RBC NONE SEEN Abnormal 0-2 [facility] Comment on above: Performed By: #### U AMIC #### [facility] [address] [place] [address] Dr. Leah Felipe SPEC GRAVITY 1.025 Normal 1.005-<=1. 025 [facility] Comment on above: Performed By: #### U AMIC #### [facility] [address] [place] [address] Dr. Leah Felipe UA PROTEIN Negative Normal NEGATIVE/ TRACE [facility] Comment on above: Performed By: #### U AMIC #### [facility] [address] [place] [address] Dr. Leah Felipe Urobilinogen Qn (U) 0.2 {Lin'U}/dL Normal 0.2 - 1. 0 [facility] Comment on above: Performed By: #### U AMIC #### [facility] [address] [place] [address] Dr. Leah Felipe WBC 0-2 Abnormal NONE SEEN [facility] Comment on above: Performed By: #### U AMIC #### [facility] [address] [place] [address] Dr. Leah Felipe URINE T PROTEIN CREAT RATIOo n 08-03-2022 Protein (U) [Mass/Vol] 30.2 mg/dL Critically high <=12.0 [facility] Comment on above: Performed By: #### U RTPCR #### [facility] [address] [place] [address] Dr. Leah Felipe UR PROT CREAT RAT 0.19 Normal [facility] Comment on above: Performed By: #### U RTPCR #### [facility] [address] [place] [address] Dr. Leah Felipe URINE CREAT 159.67 mg/dL Normal 20.00-300. 00 [facility] Comment on above: Performed By: #### U RTPCR #### [facility] [address] [place] [address] Dr. Leah Felipe CBC AUTO DIFFon 07-31-2022 BASO # 0.0 103/ul Normal 0.0-0.1 [facility] Comment on above: Performed By: #### C BC #### [facility] [address] [place] [address] Dr. Leah Felipe Basophils/100 WBC (Bld) 0.6 % Normal 0.2-2.0 [facility] Comment on above: Performed By: #### C BC #### [facility] [address] [place] [address] Dr. Leah Felipe EO # 0.3 103/ul Normal 0.0-0.7 [facility] Comment on above: Performed By: #### C BC #### [facility] [address] [place] [address] Dr. Leah Felipe Eosinophils/100 WBC (Bld) 5.5 % Normal 0.9-7.0 [facility] Comment on above: Performed By: #### C BC #### [facility] [address] [place] [address] Dr. Leah Felipe Erythrocyte distribution width (RBC) [Ratio] 12.5 % Normal 11.0-15.0 [facility] Comment on above: Performed By: #### C BC #### [facility] [address] [place] [address] Dr. Leah Felipe Hematocrit (Bld) [Volume fraction] 39.2 % Normal 36.0-48.0 [facility] Comment on above: Performed By: #### C BC #### [facility] [address] [place] [address] Dr. Leah Felipe Hemoglobin (Bld) [Mass/Vol] 12.5 g/dL Normal 12.0-16.0 [facility] Comment on above: Performed By: #### C BC #### [facility] [address] [place] [address] Dr. Leah Felipe IG # 0.01 10e3/ul Normal 0.00-0.03 [facility] Comment on above: Performed By: #### C BC #### [facility] [address] [place] [address] Dr. Leah Felipe IG % 0.2 % Normal 0.0-0.5 [facility] Comment on above: Performed By: #### C BC #### [facility] [address] [place] [address] Dr. Leah Felipe LYMPH # 0.8 103/ul Critically low 1.2-3.8 [facility] Comment on above: Performed By: #### C BC #### [facility] [address] [place] [address] Dr. Leah Felipe Lymphocytes/100 WBC (Bld) 16.0 % Critically low 20.5-60.0 [facility] Comment on above: Performed By: #### C BC #### [facility] [address] [place] [address] Dr. Leah Felipe MANUAL DIFF REQ NO Normal [facility] Comment on above: Performed By: #### C BC #### [facility] [address] [place] [address] Dr. Leah Felipe MCH (RBC) [Entitic mass] 30.9 pg Normal 26.7-34.0 [facility] Comment on above: Performed By: #### C BC #### [facility] [address] [place] [address] Dr. Leah Felipe MCHC (RBC) [Mass/Vol] 31.9 g/dL Normal 29.9-35.2 [facility] Comment on above: Performed By: #### C BC #### [facility] [address] [place] [address] Dr. Leah Felipe MCV (RBC) [Entitic vol] 97.0 fL Normal 81.0-99.0 [facility] Comment on above: Performed By: #### C BC #### [facility] [address] [place] [address] Dr. Leah Felipe MONO # 0.4 103/ul Normal 0.3-0.8 [facility] Comment on above: Performed By: #### C BC #### [facility] [address] [place] [address] Dr. Leah Felipe Monocytes/100 WBC (Bld) 8.7 % Normal 1.7-12.0 [facility] Comment on above: Performed By: #### C BC #### [facility] [address] [place] [address] Dr. Leah Felipe NEUT # 3.4 103/ul Normal 1.4-6.5 [facility] Comment on above: Performed By: #### C BC #### [facility] [address] [place] [address] Dr. Leah Felipe Neutrophils/100 WBC (Bld) 69.0 % Normal 43.0-75.0 [facility] Comment on above: Performed By: #### C BC #### [facility] [address] [place] [address] Dr. Leah Felipe Platelet mean volume (Bld) [Entitic vol] 9.1 fL Critically low 9.5-13.5 [facility] Comment on above: Performed By: #### C BC #### [facility] [address] [place] [address] Dr. Leah Felipe PLT 196 103/ul Normal 150-450 [facility] Comment on above: Performed By: #### C BC #### [facility] [address] [place] [address] Dr. Leah Felipe RBC 4.04 106/ul Critically low 4.20-5.40 [facility] Comment on above: Performed By: #### C BC #### [facility] [address] [place] [address] Dr. Leah Felipe WBC 5.0 103/ul Normal 4.0-11.0 [facility] Comment on above: Performed By: #### C BC #### [facility] [address] [place] [address] Dr. Leah Felipe PROF CHEM 8 (BAS METB)on Anion gap [Moles/Vol] 9.8 mmol/L Normal [facility] Comment on above: Performed By: #### B MP, TSH #### [facility] [address] [place] [address] Dr. Leah Felipe Calcium [Mass/Vol] 8.2 mg/dL Critically low 8.5-10.1 [facility] Comment on above: Performed By: #### B MP, TSH #### [facility] [address] [place] [address] Dr. Leah Felipe Chloride [Moles/Vol] 107 mmol/L Normal 98-107 [facility] Comment on above: Performed By: #### B MP, TSH #### [facility] [address] [place] [address] Dr. Leah Felipe CO2 [Moles/Vol] 26.4 mmol/L Normal 21.0-32.0 [facility] Comment on above: Performed By: #### B MP, TSH #### [facility] [address] [place] [address] Dr. Leah Felipe Creatinine [Mass/Vol] 1.53 mg/dL Critically high 0.55-1.02 [facility] Comment on above: Performed By: #### B MP, TSH #### [facility] [address] [place] [address] Dr. Leah Felipe EGFR-AF DJIBOUTIAN 40 mL/min/1.73m2 Critically low >=60 [facility] Comment on above: Performed By: #### B MP, TSH #### [facility] [address] [place] [address] Dr. Leah Felipe EGFR-NON AF DJIBOUTIAN 33 mL/min/1.73m2 Critically low >=60 [facility] Comment on above: Performed By: #### B MP, TSH #### [facility] [address] [place] [address] Dr. Leah Felipe Glucose [Mass/Vol] 108 mg/dL Critically high 74-106 T [facility] Comment on above: Performed By: #### B MP, TSH #### [facility] [address] [place] [address] Dr. Leah Felipe Potassium [Moles/Vol] 4.2 mmol/L Normal 3.5-5.1 [facility] Comment on above: Performed By: #### B MP, TSH #### [facility] [address] [place] [address] Dr. Leah Felipe Sodium [Moles/Vol] 139 mmol/L Normal 136-145 [facility] Comment on above: Performed By: #### B MP, TSH #### [facility] [address] [place] [address] Dr. Leah Felipe Urea nitrogen [Mass/Vol] 26.0 mg/dL Critically high 7.0-18.0 [facility] Comment on above: Performed By: #### B VENANCIO, TSH #### [facility] [address] [place] [address] Dr. Leah Felipe Urea nitrogen/Creatinine [Mass ratio] 17.0 mg/mg Normal [facility] Comment on above: Performed By: #### B MP, TSH #### [facility] [address] [place] [address] Dr. Leah Felipe TSHon 07-31-2022 TSH 1.650 uIU/mL Normal 0.358-3.74 0 [facility] Comment on above: Performed By: #### B MP, TSH #### [facility] [address] [place] [address] Dr. Leah Felipe VITAMIN B12on 07-31-2022 Cobalamin (Vitamin B12) [Mass/Vol] 378.0 pg/mL Normal 193.0-986. 0 [facility] Comment on above: Performed By: #### V ITB12 #### [facility] [address] [place] [address] Dr. Leah Felipe MG MAMM SCREEN 3D FAVIOLA CADon 07-29-2022 MG MAMM SCREEN 3D FAVIOLA CAD Patient: CASSI RODRIGEZMavis Exam Date: 07/29/2022 : 1950 Gender:F Ordering : DR BRODERICK HOWARD D.O. Admission #: [id number] Family : Order #: [id number] CLICK HERE TO VIEW EXAM RADIOLOGY REPORT [...] pancreatic cancer at age 64. LOCATION: [facility] BREAST COMPOSITION: Heterogeneously dense,which may [...] MD on 07/29/2022 at 11:19 Normal [facility] CBC panel Auto (Bld)on 07-23 Erythrocyte distribution width (RBC) [Ratio] 12.5 % Normal 11.5-15.0 [facility] Comment on above: Order Comment: Warren almazan Type: BLOOD SPECIMEN Ordering Facility: [facility] Address: [address] [address] Performed By: #### 5 8410-2 #### [facility] CLIA [id number] [address] [place] [address] [place] Hematocrit (Bld) [Volume fraction] 39.3 % Normal 36.0-46.0 [facility] Comment on above: Order Comment: Warren almazan Type: BLOOD SPECIMEN Ordering Facility: [facility] Address: [address] [address] Performed By: #### 5 8410-2 #### [facility] [place] [id number] [address] [place] [address] [place] Hemoglobin (Bld) [Mass/Vol] 12.5 g/dL Normal 11.5-15.5 [facility] Comment on above: Order Comment: Speci men Type: BLOOD SPECIMEN Ordering Facility: [facility] Address: [address] [place] [address] Performed By: #### 5 8410-2 #### [facility] [place] [id number] [place] [address] [place] MCH (RBC) [Entitic mass] 31.3 pg Normal 26.0-34.0 [facility] Comment on above: Order Comment: Speci men Type: BLOOD SPECIMEN Ordering Facility: [facility] Address: [address] [place] [address] Performed By: #### 5 8410-2 #### [facility] [place] [id number] [address] [place] [address] [place] MCHC (RBC) [Mass/Vol] 31.8 g/dL Normal 30.5-36.0 [facility] Comment on above: Order Comment: Speci men Type: BLOOD SPECIMEN Ordering Facility: [facility] Address: [address] [place] [address] Performed By: #### 5 8410-2 #### [facility] [place] [id number] [address] [place] [address] [place] MCV (RBC) [Entitic vol] 98.5 fL Normal 80.0-100.0 [facility] Comment on above: Order Comment: Speci men Type: BLOOD SPECIMEN Ordering Facility: [facility] Address: [address] [place] [address] Performed By: #### 5 8410-2 #### [facility] [place] [id number] [place] [address] [place] Nucleated RBC (Bld) [#/Vol] 10*3/uL Normal <0.01 [facility] Comment on above: Order Comment: Speci men Type: BLOOD SPECIMEN Ordering Facility: [facility] Address: [address] [place], [place] [id number] Performed By: #### 5 8410-2 #### [facility] CLIA [id number] [address] [place] [address] [place] Platelet mean volume (Bld) [Entitic vol] 9.5 fL Normal 9.0-12.7 [facility] Comment on above: Order Comment: Speci men Type: BLOOD SPECIMEN Ordering Facility: [facility] Address: [address] [place], [place] [id number] Performed By: #### 5 8410-2 #### [facility] CLIA [id number] [address] [place] [address] [place] Platelets (Bld) [#/Vol] 214 10*3/uL Normal 150-400 [facility] Comment on above: Order Comment: Speci men Type: BLOOD SPECIMEN Ordering Facility: [facility] Address: [address] [place], [place] [id number] Performed By: #### 5 8410-2 #### [facility] CLIA [id number] [address] [place] [address] [place] RBC (Bld) [#/Vol] 3.99 10*6/uL Normal 3.90-5.20 [facility] Comment on above: Order Comment: Speci men Type: BLOOD SPECIMEN Ordering Facility: [facility] Address: [address] [place], [place] [id number] Performed By: #### 5 8410-2 #### [facility] CLIA [id number] [address] [place] [address] [place] WBC (Bld) [#/Vol] 5.85 10*3/uL Normal 3.70-11.00 [facility] Comment on above: Order Comment: Speci men Type: BLOOD SPECIMEN Ordering Facility: [facility] Address: [address] [place], [place] [id number] Performed By: #### 5 8410-2 #### [facility] CLIA [id number] [place] [address] [place] Erythrocyte distribution width (RBC) [Ratio] 12.5 % 11.5 - 15.0 % [facility] Hematocrit (Bld) [Volume fraction] 39.3 % 36.0 - 46.0 % [facility] Hemoglobin (Bld) [Mass/Vol] 12.5 g/dL 11.5 - 15.5 g/dL [facility] MCH (RBC) [Entitic mass] 31.3 pg 26.0 - 34.0 pg [facility] MCHC (RBC) [Mass/Vol] 31.8 g/dL 30.5 - 36.0 g/dL [facility] MCV (RBC) [Entitic vol] 98.5 fL 80.0 - 100.0 fL [facility] Nucleated RBC (Bld) [#/Vol] <0.01 k/uL [facility] Platelet mean volume (Bld) [Entitic vol] 9.5 fL 9.0 - 12.7 fL [facility] Platelets (Bld) [#/Vol] 214 10*3/uL 150 - 400 k/uL [facility] RBC (Bld) [#/Vol] 3.99 10*6/uL 3.90 - 5.20 m/uL [facility] WBC (Bld) [#/Vol] 5.85 10*3/uL 3.70 - 11.00 k/uL [facility] TSH BLDon 07-23-2022 TSH Qn 1.890 m[IU]/L 0.270 - 4.200 mIU/L [facility] TSH SerPl-aCncon 07-23-2022 TSH Qn 1.890 m[IU]/L Normal 0.270-4.20 0 [facility] Comment on above: Order Comment: Speci men Type: BLOOD SPECIMEN Ordering Facility: [facility] Address: [address] [place] [address] Performed By: #### 3 016-3 #### [facility] CLIA [id number] [place] [address] [place] Vital Signs Date Time Vital Sign Value Performing Clinician Facility 08-01-2025 07:23-0400 Body height 157.48 cm Broderick Ball DO Work Phone: [facility] 08-01-2025 07:23-0400 Body weight 86.18 kg Broderick Ball DO Work Phone: [facility] 07-18-2025 09:45-0400 Body height 157.5 cm Randa Reilly MD Work Phone: [facility] 07-18-2025 09:45-0400 Body mass index (BMI) [Ratio] 35.12 kg/m2 Randa Reilly MD Work Phone: [facility] 07-18-2025 09:45-0400 Body weight 87.1 kg Randa Reilly MD Work Phone: [facility] 07-18-2025 09:45-0400 Diastolic blood pressure 74 mm[Hg] Randa Reilly MD Work Phone: [facility] 07-18-2025 09:45-0400 Heart rate 82 /min Randa Reilly MD Work Phone: [facility] 07-18-2025 09:45-0400 Systolic blood pressure 124 mm[Hg] Randa Reilly MD Work Phone: [facility] 07-02-2025 14:58-0400 Body height 157.48 cm Broderick Ball DO Work Phone: [facility] 07-02-2025 14:58-0400 Body mass index (BMI) [Ratio] 34.7 kg/m2 Broderick Ball DO Work Phone: [facility] 07-02-2025 14:58-0400 Body weight 86.18 kg Broderick Ball DO Work Phone: [facility] 07-02-2025 14:58-0400 Diastolic blood pressure 70 mm[Hg] Broderick Ball DO Work Phone: [facility] 07-02-2025 14:58-0400 Heart rate 82 /min Broderick Ball DO Work Phone: [facility] 07-02-2025 14:58-0400 Respiratory rate 12 /min Broderick Ball DO Work Phone: [facility] 07-02-2025 14:58-0400 Systolic blood pressure 117 mm[Hg] Broderick Ball DO Work Phone: [facility] 05-21-2025 08:03-0400 Body mass index (BMI) [Ratio] 35.19 kg/m2 Elian Doher DO Work Phone: [facility] 05-21-2025 08:03-0400 Body weight 87.27 kg Elian Doher DO Work Phone: [facility] 05-21-2025 08:03-0400 Diastolic blood pressure 60 mm[Hg] Elian Doher DO Work Phone: [facility] 05-21-2025 08:03-0400 Systolic blood pressure 123 mm[Hg] Elian Doher DO Work Phone: [facility] 04-10-2025 11:10-0400 Body height 157.5 cm Randa Reilly MD Work Phone: [facility] 04-10-2025 11:10-0400 Body mass index (BMI) [Ratio] 34.52 kg/m2 Randa Reilly MD Work Phone: [facility] 04-10-2025 11:10-0400 Body weight 85.6 kg Randa Reilly MD Work Phone: [facility] 04-10-2025 11:10-0400 Diastolic blood pressure 72 mm[Hg] Randa Reilly MD Work Phone: [facility] 04-10-2025 11:10-0400 Heart rate 86 /min Randa Reilly MD Work Phone: [facility] 04-10-2025 11:10-0400 Systolic blood pressure 109 mm[Hg] Randa Reilly MD Work Phone: [facility] 02-22-2025 10:40-0400 Body height 157.48 cm Broderick Ball DO Work Phone: [facility] 02-22-2025 10:40-0400 Body mass index (BMI) [Ratio] 36.1 kg/m2 Broderick Ball DO Work Phone: [facility] 02-22-2025 10:40-0400 Body temperature 96.9 [degF] Broderick Ball DO Work Phone: [facility] 02-22-2025 10:40-0400 Body weight 89.58 kg Broderick Ball DO Work Phone: [facility] 02-22-2025 10:40-0400 Diastolic blood pressure 55 mm[Hg] Broderick Ball DO Work Phone: [facility] 02-22-2025 10:40-0400 Heart rate 76 /min Broderick Ball DO Work Phone: [facility] 02-22-2025 10:40-0400 Respiratory rate 16 /min Broderick Ball DO Work Phone: [facility] 02-22-2025 10:40-0400 SaO2% (BldA) [Mass fraction] 98 % Broderick Ball DO Work Phone: [facility] 02-22-2025 10:40-0400 Systolic blood pressure 133 mm[Hg] Broderick Ball DO Work Phone: [facility] 02-21-2025 13:53-0400 Body height 157.48 cm Broderick Ball DO Work Phone: [facility] 02-21-2025 13:53-0400 Body mass index (BMI) [Ratio] 34.5 kg/m2 Broderick Ball DO Work Phone: [facility] 02-21-2025 13:53-0400 Body weight 85.72 kg Broderick Ball DO Work Phone: [facility] 02-21-2025 13:53-0400 Diastolic blood pressure 72 mm[Hg] Broderick Ball DO Work Phone: [facility] 02-21-2025 13:53-0400 Heart rate 75 /min Broderick Ball DO Work Phone: [facility] 02-21-2025 13:53-0400 SaO2% (BldA) [Mass fraction] 100 % Broderick Ball DO Work Phone: [facility] 02-21-2025 13:53-0400 Systolic blood pressure 122 mm[Hg] Broderick Ball DO Work Phone: [facility] 01-05-2025 11:51-0500 Body height 157.5 cm Svitlana Mayfield [employer]ER[employer]PERATIONS MANAGER Work Phone: [facility] 01-05-2025 11:51-0500 Body mass index (BMI) [Ratio] 34.96 kg/m2 Svitlana Mayfield [employer] INST[employer]ER.[employer] OPERATIONS MANAGER Work Phone: [facility] 01-05-2025 11:51-0500 Body weight 86.7 kg Svitlana Mayfield [employer]IL F[employer]NACE INST[employer]ER.[employer] OPERATIONS MANAGER Work Phone: [facility] 01-05-2025 11:51-0500 Diastolic blood pressure 61 mm[Hg] Svitlana Mayfield [employer] F[employer]CE INSTALLER.[employer] OPERATIONS MANAGER Work Phone: [facility] 01-05-2025 11:51-0500 Heart rate 86 /min Svitlana Mayfield [employer] F[employer]NACE INSTALLER.[employer] OPERATIONS MANAGER Work Phone: [facility] 01-05-2025 11:51-0500 Systolic blood pressure 127 mm[Hg] Svitlana Mayfield [employer] F[employer]NACE INSTALLER.[employer] OPERATIONS MANAGER Work Phone: [facility] 01-04-2025 13:55-0500 Body height 157.5 cm Alejandro Villar MD, PhD Work Phone: [facility] 01-04-2025 13:55-0500 Body mass index (BMI) [Ratio] 35.08 kg/m2 Alejandro Villar MD, PhD Work Phone: [facility] 01-04-2025 13:55-0500 Body weight 87 kg Alejandro Villar MD, PhD Work Phone: [facility] 01-04-2025 13:55-0500 Diastolic blood pressure 61 mm[Hg] Alejandro Villar MD, PhD Work Phone: [facility] 01-04-2025 13:55-0500 Heart rate 86 /min Alejandro Villar MD, PhD Work Phone: [facility] 01-04-2025 13:55-0500 Systolic blood pressure 127 mm[Hg] Alejandro Villar MD, PhD Work Phone: [facility] 12-08-2024 10:08-0500 Body height 157.48 cm Broderick Ball DO Work Phone: [facility] 12-08-2024 10:08-0500 Body mass index (BMI) [Ratio] 33.1 kg/m2 Broderick Ball DO Work Phone: [facility] 12-08-2024 10:08-0500 Body weight 82.15 kg Broderick Ball DO Work Phone: [facility] 12-08-2024 10:08-0500 Diastolic blood pressure 82 mm[Hg] Broderick Ball DO Work Phone: [facility] 12-08-2024 10:08-0500 Heart rate 73 /min Broderick Ball DO Work Phone: [facility] 12-08-2024 10:08-0500 Respiratory rate 12 /min Broderick Ball DO Work Phone: [facility] 12-08-2024 10:08-0500 Systolic blood pressure 141 mm[Hg] Broderick Ball DO Work Phone: [facility] 11-29-2024 13:43-0500 Body height 157.5 cm Aftab Itzkowitz DO Work Phone: [facility] 11-29-2024 13:43-0500 Body mass index (BMI) [Ratio] 35.3 kg/m2 Aftab Itzkowitz DO Work Phone: [facility] 11-29-2024 13:43-0500 Body weight 87.54 kg Aftab Itzkowitz DO Work Phone: [facility] 11-29-2024 13:43-0500 Diastolic blood pressure 85 mm[Hg] Aftab Itzkowitz DO Work Phone: [facility] 11-29-2024 13:43-0500 Systolic blood pressure 125 mm[Hg] Aftab Itzkowitz DO Work Phone: [facility] 11-28-2024 11:04-0500 Body height 157.48 cm Broderick Ball DO Work Phone: [facility] 11-28-2024 11:04-0500 Body mass index (BMI) [Ratio] 34.2 kg/m2 Broderick Ball DO Work Phone: [facility] 11-28-2024 11:04-0500 Body weight 84.93 kg Broderick Ball DO Work Phone: [facility] 11-28-2024 11:04-0500 Diastolic blood pressure 73 mm[Hg] Broderick Ball DO Work Phone: [facility] 11-28-2024 11:04-0500 Heart rate 83 /min Broderick Ball DO Work Phone: [facility] 11-28-2024 11:04-0500 Respiratory rate 12 /min Broderick Ball DO Work Phone: [facility] 11-28-2024 11:04-0500 Systolic blood pressure 117 mm[Hg] Broderick Ball DO Work Phone: [facility] 11-24-2024 16:28-0500 Diastolic blood pressure 67 mm[Hg] Broderick Ball DO Work Phone: [facility] 11-24-2024 16:28-0500 Heart rate 60 /min Broderick Ball DO Work Phone: [facility] 11-24-2024 16:28-0500 Respiratory rate 18 /min Broderick Ball DO Work Phone: [facility] 11-24-2024 16:28-0500 SaO2% (BldA) [Mass fraction] 99 % Broderick Ball DO Work Phone: [facility] 11-24-2024 16:28-0500 Systolic blood pressure 152 mm[Hg] Broderick Ball DO Work Phone: [facility] 11-24-2024 13:52-0500 Body height 157.48 cm Broderick Ball DO Work Phone: [facility] 11-24-2024 13:52-0500 Body temperature 97.6 [degF] Broderick Ball DO Work Phone: [facility] 11-24-2024 13:52-0500 Body weight 89 kg Broderick Ball DO Work Phone: [facility] 11-24-2024 11:16-0500 Body height 157.48 cm [facility] 11-24-2024 11:16-0500 Body mass index (BMI) [Ratio] 34.2 kg/m2 [facility] 11-24-2024 11:16-0500 Body weight 84.82 kg [facility] 11-24-2024 11:16-0500 Diastolic blood pressure 75 mm[Hg] [facility] 11-24-2024 11:16-0500 Heart rate 82 /min [facility] 11-24-2024 11:16-0500 Respiratory rate 12 /min [facility] 11-24-2024 11:16-0500 Systolic blood pressure 133 mm[Hg] [facility] 11-17-2024 13:45-0500 Body height 157.48 cm [facility] 11-17-2024 13:45-0500 Body mass index (BMI) [Ratio] 34.4 kg/m2 [facility] 11-17-2024 13:45-0500 Body weight 85.5 kg [facility] 11-17-2024 13:45-0500 Diastolic blood pressure 76 mm[Hg] [facility] 11-17-2024 13:45-0500 Heart rate 68 /min [facility] 11-17-2024 13:45-0500 Respiratory rate 12 /min [facility] 11-17-2024 13:45-0500 Systolic blood pressure 129 mm[Hg] [facility] 11-03-2024 15:00-0500 Hourly [address] [facility] 11-03-2024 15:00-0500 Promise to Return [facility]ashi [facility] 11-03-2024 14:00-05[address] [facility] [facility] 11-03-2024 14:00-0500 Promise to Return [facility]ashi [facility] 11-03-2024 13:30-0500 [address] [facility] 11-03-2024 13:00-0500 Promise to Return [facility]ashi [facility] 11-03-2024 11:27-0500 Heart rate 58 /min [facility] 11-03-2024 11:27-0500 SaO2% (BldA) [Mass fraction] 95 % [facility] 11-03-2024 11:27-0500 Respiratory rate 16 /min [facility] 11-03-2024 11:27-0500 Diastolic blood pressure 68 mm[Hg] [facility] 11-03-2024 11:27-0500 Mean blood pressure 83 mm[Hg] [facility] 11-03-2024 11:27-0500 Systolic blood pressure 113 mm[Hg] [facility] 11-03-2024 11:27-0500 Body temperature 97.52 [degF] [facility] 11-03-2024 07:43-0500 Heart rate 60 /min [facility] 11-03-2024 07:43-0500 SaO2% (BldA) [Mass fraction] 96 % [facility] 11-03-2024 07:43-0500 Respiratory rate 16 /min [facility] 11-03-2024 07:42-0500 Body temperature 97.52 [degF] [facility] 11-03-2024 07:42-0500 Diastolic blood pressure 70 mm[Hg] [facility] 11-03-2024 07:42-0500 Mean blood pressure 94 mm[Hg] [facility] 11-03-2024 07:42-0500 Systolic blood pressure 141 mm[Hg] [facility] 11-03-2024 04:31-0500 Heart rate 59 /min [facility] 11-03-2024 04:31-0500 SaO2% (BldA) [Mass fraction] 96 % [facility] 11-03-2024 04:31-0500 Respiratory rate 17 /min [facility] 11-03-2024 04:30-0500 Blood Pressure Location [facility] 11-03-2024 04:30-0500 Diastolic blood pressure 78 mm[Hg] [facility] 11-03-2024 04:30-0500 Mean blood pressure 99 mm[Hg] [facility] 11-03-2024 04:30-0500 Systolic blood pressure 141 mm[Hg] [facility] 11-03-2024 00:58-0500 Body temperature 97.52 [degF] [facility] 11-02-2024 16:45-0500 Respiratory rate 9 /min [facility] 11-02-2024 16:20-0500 Blood Pressure Location [facility] 11-02-2024 16:20-0500 Mean blood pressure 91 mm[Hg] [facility] 11-02-2024 16:20-0500 Respiratory rate 11 /min [facility] 11-02-2024 16:05-0500 Blood Pressure Location [facility] 11-02-2024 16:05-0500 Mean blood pressure 90 mm[Hg] [facility] 11-02-2024 16:05-0500 Respiratory rate 13 /min [facility] 10-27-2024 09:00-0500 Body height 157.48 cm [facility] 10-27-2024 09:00-0500 Body mass index (BMI) [Ratio] 35.2 kg/m2 [facility] 10-27-2024 09:00-0500 Body weight 87.31 kg [facility] 10-27-2024 09:00-0500 Diastolic blood pressure 81 mm[Hg] [facility] 10-27-2024 09:00-0500 Heart rate 69 /min [facility] 10-27-2024 09:00-0500 Respiratory rate 12 /min [facility] 10-27-2024 09:00-0500 Systolic blood pressure 137 mm[Hg] [facility] 09-07-2024 08:48-0400 Body height 157.48 cm DO Broderick Ball Work Phone: [facility] 09-07-2024 08:48-0400 Body mass index (BMI) [Ratio] 35.8 kg/m2 DO Broderick Ball Work Phone: [facility] 09-07-2024 08:48-0400 Body temperature 96.6 [degF] DO Broderick Ball Work Phone: [facility] 09-07-2024 08:48-0400 Body weight 88.9 kg DO Broderick Ball Work Phone: [facility] 09-07-2024 08:48-0400 Diastolic blood pressure 60 mm[Hg] DO Broderick Ball Work Phone: [facility] 09-07-2024 08:48-0400 Heart rate 75 /min DO Broderick Ball Work Phone: [facility] 09-07-2024 08:48-0400 Respiratory rate 16 /min DO Broderick Ball Work Phone: [facility] 09-07-2024 08:48-0400 SaO2% (BldA) [Mass fraction] 98 % DO Broderick Ball Work Phone: [facility] 09-07-2024 08:48-0400 Systolic blood pressure 112 mm[Hg] DO Broderick Ball Work Phone: [facility] 09-05-2024 13:06-0400 Body height 157.5 cm Randa Reilly MD Work Phone: [facility] 09-05-2024 13:06-0400 Body mass index (BMI) [Ratio] 35.93 kg/m2 Randa Reilly MD Work Phone: [facility] 09-05-2024 13:06-0400 Body weight 89.1 kg Randa Reilly MD Work Phone: [facility] 09-05-2024 13:06-0400 Diastolic blood pressure 78 mm[Hg] Randa Reilly MD Work Phone: [facility] 09-05-2024 13:06-0400 Heart rate 84 /min Randa Reilly MD Work Phone: [facility] 09-05-2024 13:06-0400 Systolic blood pressure 133 mm[Hg] Randa Reilly MD Work Phone: [facility] 08-31-2024 09:54-0400 Body height 157.5 cm Kitty Millard MD Work Phone: [facility] 08-31-2024 09:54-0400 Body mass index (BMI) [Ratio] 35.48 kg/m2 Kitty Millard MD Work Phone: [facility] 08-31-2024 09:54-0400 Body weight 88 kg Kitty Millard MD Work Phone: [facility] 08-31-2024 09:54-0400 Diastolic blood pressure 72 mm[Hg] Kitty Millard MD Work Phone: [facility] 08-31-2024 09:54-0400 Heart rate 81 /min Kitty Millard MD Work Phone: [facility] 08-31-2024 09:54-0400 Systolic blood pressure 134 mm[Hg] Kitty Millard MD Work Phone: [facility] 08-30-2024 15:27-0400 Body height 157.48 cm DO Broderick Ball Work Phone: [facility] 08-30-2024 15:27-0400 Body mass index (BMI) [Ratio] 35.5 kg/m2 DO Broderick Ball Work Phone: [facility] 08-30-2024 15:27-0400 Body weight 88.22 kg DO Broderick Ball Work Phone: [facility] 08-30-2024 15:27-0400 Diastolic blood pressure 76 mm[Hg] DO Broderick Ball Work Phone: [facility] 08-30-2024 15:27-0400 Heart rate 83 /min DO Broderick Ball Work Phone: [facility] 08-30-2024 15:27-0400 Respiratory rate 12 /min DO Broderick Ball Work Phone: [facility] 08-30-2024 15:27-0400 Systolic blood pressure 134 mm[Hg] DO Broderick Ball Work Phone: [facility] 08-29-2024 10:50-0400 Body height 157.48 cm DO Broderick Ball Work Phone: [facility] 08-29-2024 10:50-0400 Body mass index (BMI) [Ratio] 35.1 kg/m2 DO Broderick Ball Work Phone: [facility] 08-29-2024 10:50-0400 Body weight 87.08 kg DO Broderick Ball Work Phone: [facility] 08-29-2024 10:50-0400 Diastolic blood pressure 64 mm[Hg] DO Broderick Ball Work Phone: [facility] 08-29-2024 10:50-0400 Heart rate 76 /min DO Broderick Ball Work Phone: [facility] 08-29-2024 10:50-0400 Systolic blood pressure 126 mm[Hg] DO Broderick Ball Work Phone: [facility] 06-29-2024 13:05-0400 Body height 157.5 cm Alejandro Villar MD, PhD Work Phone: [facility] 06-29-2024 13:05-0400 Body mass index (BMI) [Ratio] 34.44 kg/m2 Alejandro Villar MD, PhD Work Phone: [facility] 06-29-2024 13:05-0400 Body weight 85.4 kg Alejandro Villar MD, PhD Work Phone: [facility] 06-29-2024 13:05-0400 Diastolic blood pressure 72 mm[Hg] Alejandro Villar MD, PhD Work Phone: [facility] 06-29-2024 13:05-0400 Heart rate 85 /min Alejandro Villar MD, PhD Work Phone: [facility] 06-29-2024 13:05-0400 Systolic blood pressure 133 mm[Hg] Alejandro Villar MD, PhD Work Phone: [facility] 06-27-2024 14:01-0400 Body height 157.48 cm DO Broderick Ball Work Phone: [facility] 06-27-2024 14:01-0400 Body mass index (BMI) [Ratio] 34.2 kg/m2 DO Broderick Ball Work Phone: [facility] 06-27-2024 14:01-0400 Body weight 84.82 kg DO Broderick Ball Work Phone: [facility] 06-27-2024 14:01-0400 Diastolic blood pressure 74 mm[Hg] DO Broderick Ball Work Phone: [facility] 06-27-2024 14:01-0400 Heart rate 68 /min DO Broderick Ball Work Phone: [facility] 06-27-2024 14:01-0400 Respiratory rate 12 /min DO Broderick Ball Work Phone: [facility] 06-27-2024 14:01-0400 Systolic blood pressure 123 mm[Hg] DO Broderick Ball Work Phone: [facility] 06-08-2024 14:26-0400 Body height 157.48 cm DO Broderick Ball Work Phone: [facility] 06-08-2024 14:26-0400 Body mass index (BMI) [Ratio] 34 kg/m2 DO Broderick Ball Work Phone: [facility] 06-08-2024 14:26-0400 Body temperature 97.6 [degF] DO Broderick Ball Work Phone: [facility] 06-08-2024 14:26-0400 Body weight 84.36 kg DO Broderick Ball Work Phone: [facility] 06-08-2024 14:26-0400 Diastolic blood pressure 70 mm[Hg] DO Broderick Ball Work Phone: [facility] 06-08-2024 14:26-0400 Heart rate 73 /min DO Broderick Ball Work Phone: [facility] 06-08-2024 14:26-0400 Respiratory rate 16 /min DO Broderick Ball Work Phone: [facility] 06-08-2024 14:26-0400 SaO2% (BldA) [Mass fraction] 99 % DO Broderick Ball Work Phone: [facility] 06-08-2024 14:26-0400 Systolic blood pressure 140 mm[Hg] DO Broderick Ball Work Phone: [facility] 05-30-2024 07:27-0400 Body height 157.48 cm DO Broderick Ball Work Phone: [facility] 05-30-2024 07:27-0400 Body weight 86.18 kg DO Broderick Ball Work Phone: [facility] 05-23-2024 11:23-0400 Body height 157.5 cm Randa Reilly MD Work Phone: [facility] 05-23-2024 11:23-0400 Body mass index (BMI) [Ratio] 34.55 kg/m2 Randa Reilly MD Work Phone: [facility] 05-23-2024 11:23-0400 Body weight 85.68 kg Randa Reilly MD Work Phone: [facility] 05-23-2024 11:23-0400 Diastolic blood pressure 72 mm[Hg] Randa Reilly MD Work Phone: [facility] 05-23-2024 11:23-0400 Heart rate 85 /min Randa Reilly MD Work Phone: [facility] 05-23-2024 11:23-0400 Systolic blood pressure 133 mm[Hg] Randa Reilly MD Work Phone: [facility] 04-21-2024 10:00-0400 Body height 157.48 cm DO Broderick Ball Work Phone: [facility] 04-21-2024 10:00-0400 Body mass index (BMI) [Ratio] 34.5 kg/m2 DO Broderick Ball Work Phone: [facility] 04-21-2024 10:00-0400 Body weight 85.72 kg DO Broderick Ball Work Phone: [facility] 03-29-2024 13:34-0400 Body height 157.48 cm DO Broderick Ball Work Phone: [facility] 03-29-2024 13:34-0400 Body mass index (BMI) [Ratio] 33.3 kg/m2 DO Broderick Ball Work Phone: [facility] 03-29-2024 13:34-0400 Body weight 82.78 kg DO Broderick Ball Work Phone: [facility] 03-29-2024 13:34-0400 Diastolic blood pressure 77 mm[Hg] DO Broderick Ball Work Phone: [facility] 03-29-2024 13:34-0400 Heart rate 73 /min DO Broderick Ball Work Phone: [facility] 03-29-2024 13:34-0400 Respiratory rate 12 /min DO Broderick Ball Work Phone: [facility] 03-29-2024 13:34-0400 Systolic blood pressure 124 mm[Hg] DO Broderick Ball Work Phone: [facility] 03-27-2024 11:25-0400 Body height 157.48 cm DO Broderick Ball Work Phone: [facility] 03-27-2024 11:25-0400 Body weight 84.36 kg DO Broderick Ball Work Phone: [facility] 03-07-2024 08:53-0400 Body height 157.5 cm Randa Reilly MD Work Phone: [facility] 03-07-2024 08:53-0400 Body mass index (BMI) [Ratio] 34.06 kg/m2 Randa Reilly MD Work Phone: [facility] 03-07-2024 08:53-0400 Body weight 84.46 kg Randa Reilly MD Work Phone: [facility] 03-07-2024 08:53-0400 Diastolic blood pressure 72 mm[Hg] Randa Reilly MD Work Phone: [facility] 03-07-2024 08:53-0400 Heart rate 85 /min Randa Reilly MD Work Phone: [facility] 03-07-2024 08:53-0400 Systolic blood pressure 133 mm[Hg] Randa Reilly MD Work Phone: [facility] 02-09-2024 14:58-0400 Body height 161.29 cm [facility] 02-09-2024 14:58-0400 Body mass index (BMI) [Ratio] 33.5 kg/m2 [facility] 02-09-2024 14:58-0400 Body weight 87.08 kg [facility] 02-09-2024 14:58-0400 Diastolic blood pressure 71 mm[Hg] [facility] 02-09-2024 14:58-0400 Heart rate 78 /min [facility] 02-09-2024 14:58-0400 Respiratory rate 12 /min [facility] 02-09-2024 14:58-0400 Systolic blood pressure 114 mm[Hg] [facility] 12-23-2023 09:02-0500 Body height 157.5 cm Alejandro Villar MD, PhD Work Phone: [facility] 12-23-2023 09:02-0500 Body temperature 97.59 [degF] Alejandro Villar MD, PhD Work Phone: [facility] 12-23-2023 09:02-0500 Body weight 86.64 kg Alejandro Villar MD, PhD Work Phone: [facility] 12-23-2023 09:02-0500 Diastolic blood pressure 72 mm[Hg] Alejandro Villar MD, PhD Work Phone: [facility] 12-23-2023 09:02-0500 Heart rate 85 /min Alejandro Villar MD, PhD Work Phone: [facility] 12-23-2023 09:02-0500 SaO2% (BldA) [Mass fraction] 100 % Alejandro Villar MD, PhD Work Phone: [facility] 12-23-2023 09:02-0500 Systolic blood pressure 133 mm[Hg] Alejandro Villar MD, PhD Work Phone: [facility] 09-08-2023 14:50-0400 Body height 157.5 cm Mirian Bell OIL FURNACE INSTALLER.CALL CENTER OPERATIONS MANAGER Work Phone: [facility] 09-08-2023 14:50-0400 Body weight 86.5 kg Mirian Bell OIL FURNACE INSTALLER.CALL CENTER OPERATIONS MANAGER Work Phone: [facility] 09-08-2023 14:50-0400 Diastolic blood pressure 64 mm[Hg] Mirian Bell OIL FURNACE INSTALLER.CALL CENTER OPERATIONS MANAGER Work Phone: [facility] 09-08-2023 14:50-0400 Heart rate 62 /min Mirian Bell OIL FURNACE INSTALLER.CALL CENTER OPERATIONS MANAGER Work Phone: [facility] 09-08-2023 14:50-0400 Systolic blood pressure 130 mm[Hg] Mirian Bell OIL FURNACE INSTALLER.CALL CENTER OPERATIONS MANAGER Work Phone: [facility] 08-25-2023 10:20-0400 Body height 161.29 cm Niki Blades Other [employer] Other 08-25-2023 10:20-0400 Body mass index (BMI) [Ratio] 34.35 kg/m2 Niki Blades Other [employer] Other 08-25-2023 10:20-0400 Body weight 89.36 kg Niki Blades Other [employer] Other 08-16-2023 10:00-0400 Body height 161.29 cm Niki Blades Other [employer] Other 08-16-2023 10:00-0400 Body mass index (BMI) [Ratio] 34.35 kg/m2 Niki Blades Other [employer] Other 08-16-2023 10:00-0400 Body weight 89.36 kg Niki Blades Other [employer] Other 08-05-2023 07:21-0400 Body temperature 97.8 [degF] DO Broderick Ball Work Phone: [facility] 08-05-2023 07:21-0400 Diastolic blood pressure 73 mm[Hg] DO Broderick Ball Work Phone: [facility] 08-05-2023 07:21-0400 Heart rate 63 /min DO Broderick Ball Work Phone: [facility] 08-05-2023 07:21-0400 Respiratory rate 14 /min DO Broderick Ball Work Phone: [facility] 08-05-2023 07:21-0400 SaO2% (BldA) [Mass fraction] 97 % DO Broderick Ball Work Phone: [facility] 08-05-2023 07:21-0400 Systolic blood pressure 117 mm[Hg] DO Broderick Ball Work Phone: [facility] 08-05-2023 06:00-0400 Body weight 96.7 kg DO Broderick Ball Work Phone: [facility] 08-04-2023 00:00-0400 Inhaled oxygen flow rate 3 L/min DO Broderick Ball Work Phone: [facility] 08-03-2023 07:02-0400 Body height 157.48 cm DO Broderick Ball Work Phone: [facility] 08-03-2023 07:02-0400 Body mass index (BMI) [Ratio] 35 kg/m2 DO Broderick Ball Work Phone: [facility] 07-07-2023 14:20-0400 Body height 161.29 cm Niki Blades Other [employer] Other 07-07-2023 14:20-0400 Body mass index (BMI) [Ratio] 33.65 kg/m2 Niki Blades Other [employer] Other 07-07-2023 14:20-0400 Body weight 87.54 kg Niki Blades Other [employer] Other 07-07-2023 14:20-0400 Diastolic blood pressure 80 mm[Hg] Niki Blades Other [employer] Other 07-07-2023 14:20-0400 Systolic blood pressure 142 mm[Hg] Niki Blades Other [employer] Other 06-04-2023 08:42-0400 Body height 162.56 cm DO Broderick Ball Work Phone: [facility] 06-04-2023 08:42-0400 Body weight 87.08 kg DO Broderick Ball Work Phone: [facility] 05-06-2023 14:30-0400 Body height 161.29 cm Bertram Sanders Other [employer] Other 05-06-2023 14:30-0400 Body mass index (BMI) [Ratio] 33.3 kg/m2 Bertram Sanders Other [employer] Other 05-06-2023 14:30-0400 Body weight 86.64 kg Bertram Sanders Other [employer] Other 05-06-2023 14:30-0400 Diastolic blood pressure 70 mm[Hg] Bertram Sanders Other [employer] Other 05-06-2023 14:30-0400 Systolic blood pressure 125 mm[Hg] Bertram Sanders Other [employer] Other 05-03-2023 14:30-0400 Body height 161.29 cm Broderick Ball Other [employer] Other 05-03-2023 14:30-0400 Body mass index (BMI) [Ratio] 33.16 kg/m2 Broderick Ball Other [employer] Other 05-03-2023 14:30-0400 Body weight 86.27 kg Broderick Ball Other [employer] Other 05-03-2023 14:30-0400 Diastolic blood pressure 71 mm[Hg] Broderick Ball Other [employer] Other 05-03-2023 14:30-0400 Respiratory rate 12 /min Broderick Ball Other [employer] Other 05-03-2023 14:30-0400 Systolic blood pressure 120 mm[Hg] Broderick Ball Other [employer] Other 03-25-2023 11:00-0400 Body height 161.29 cm Broderick Ball Other [employer] Other 03-25-2023 11:00-0400 Body mass index (BMI) [Ratio] 33.61 kg/m2 Broderick Ball Other [employer] Other 03-25-2023 11:00-0400 Body weight 87.45 kg Broderick Ball Other [employer] Other 03-25-2023 11:00-0400 Diastolic blood pressure 78 mm[Hg] Broderick Ball Other [employer] Other 03-25-2023 11:00-0400 Respiratory rate 12 /min Broderick Ball Other [employer] Other 03-25-2023 11:00-0400 Systolic blood pressure 135 mm[Hg] Broderick Ball Other [employer] Other 01-07-2023 14:15-0500 Body height 161.29 cm Bertram Sanders Other [employer] Other 01-07-2023 14:15-0500 Body mass index (BMI) [Ratio] 32.25 kg/m2 Bertram Sanders Other [employer] Other 01-07-2023 14:15-0500 Body weight 83.92 kg Bertram Sanders Other [employer] Other 01-07-2023 14:15-0500 Diastolic blood pressure 85 mm[Hg] Bertram Sanders Other [employer] Other 01-07-2023 14:15-0500 Systolic blood pressure 155 mm[Hg] Bertram Sanders Other [employer] Other 11-25-2022 11:00-0500 Body height 161.29 cm Broderick Ball Other [employer] Other 11-25-2022 11:00-0500 Body mass index (BMI) [Ratio] 32.25 kg/m2 Broderick Ball Other [employer] Other 11-25-2022 11:00-0500 Body weight 83.92 kg Broderick Ball Other [employer] Other 11-25-2022 11:00-0500 Diastolic blood pressure 78 mm[Hg] Broderick Ball Other [employer] Other 11-25-2022 11:00-0500 Respiratory rate 12 /min Broderick Ball Other [employer] Other 11-25-2022 11:00-0500 Systolic blood pressure 118 mm[Hg] Broderick Ball Other [employer] Other 09-10-2022 13:48-0400 Body height 157.5 cm Alejandro Villar MD, PhD Work Phone: [facility] 09-10-2022 13:48-0400 Body weight 88.27 kg Alejandro Villar MD, PhD Work Phone: [facility] 09-10-2022 13:48-0400 Diastolic blood pressure 86 mm[Hg] Alejandro Villar MD, PhD Work Phone: [facility] 09-10-2022 13:48-0400 Heart rate 76 /min Alejandro Villar MD, PhD Work Phone: [facility] 09-10-2022 13:48-0400 Systolic blood pressure 148 mm[Hg] Alejandro Villar MD, PhD Work Phone: [facility] 07-23-2022 10:09-0400 Body height 160 cm Kitty Millard MD Work Phone: [facility] 07-23-2022 10:09-0400 Body weight 88 kg Kitty Millard MD Work Phone: [facility] 07-23-2022 10:09-0400 Diastolic blood pressure 66 mm[Hg] Kitty Millard MD Work Phone: [facility] 07-23-2022 10:09-0400 Heart rate 63 /min Kitty Millard MD Work Phone: [facility] 07-23-2022 10:09-0400 Systolic blood pressure 136 mm[Hg] Kitty Millard MD Work Phone: [facility] 01-06-2022 11:30-0500 Body height 161.29 cm Bertram Sanders Other [employer] Other 01-06-2022 11:30-0500 Body mass index (BMI) [Ratio] 30.68 kg/m2 Bertram Sanders Other [employer] Other 01-06-2022 11:30-0500 Body weight 79.83 kg Bertram Sanders Other [employer] Other Encounters Encounter Date Encounter Type Care Provider Facility Start: 08-01-2025 End: 08-01-2025 Patient encounter procedure Tiana Brush WOOD MILLING MACHINE OPERATOR-C -[facility] [place] Work Phone: Start: 08-01-2025 End: 08-01-2025 ambulatory Broderick Howard DO Work Phone: [facility] Work Phone: Start: 07-23-2025 End: 07-23-2025 ambulatory Tiana Brush Facility:[facility] Start: 07-23-2025 Non-patient / Non-visit [facility] Bec[facility] Start: 07-18-2025 End: 07-18-2025 Patient encounter procedure Randa Reilly MD Work Phone: Neurology Comment on above: Intractable 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 aura and without status migrainosus (Primary Dx) Start: 07-18-2025 End: 07-18-2025 ambulatory RANDA REILLY Facility:[facility] Start: 07-02-2025 End: 07-02-2025 ambulatory Broderick Howard DO Work Phone: [facility] Work Phone: Start: 07-02-2025 End: 07-02-2025 Patient encounter procedure Broderick Howard DO -[facility] Work Phone: Start: 05-21-2025 End: 05-21-2025 Office outpatient new 45 minutes Elian Jones DO Work Phone: Neurology Comment on above: Chronic pain syndrom e (Primary Dx); MCI (mild cognitive impairment); Sinus node dysfunction (HCC); Obesity, Class II, BMI 35-39.9 Start: 05-21-2025 End: 05-21-2025 ambulatory ELIAN JONES Facility:[facility] Start: 04-10-2025 End: 04-10-2025 Patient encounter procedure Randa Reilly MD Work Phone: Neurology Comment on above: Intractable 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 aura and without status migrainosus (Primary Dx) Start: 04-10-2025 End: 04-10-2025 ambulatory RANDA REILLY Facility:[facility] Start: 02-22-2025 End: 02-22-2025 ambulatory Broderick Howard DO Work Phone: [facility] Work Phone: Start: 02-22-2025 End: 02-22-2025 Patient encounter procedure Broderick Howard DO Work Phone: [facility] Work Phone: Start: 02-21-2025 End: 02-21-2025 ambulatory Broderick Howard DO Work Phone: [facility] Work Phone: Start: 02-21-2025 End: 02-21-2025 Patient encounter procedure Broderick Howard DO Work Phone: [facility] Work Phone: Start: 02-12-2025 Non-patient / Non-visit Iesha in Lee DO Work Phone: [facility] Work Phone: Start: 01-23-2025 End: 01-30-2025 Follow-up encounter Alejandro Villar MD, PhD Work Phone: Neurology Start: 01-05-2025 End: 01-05-2025 Patient encounter procedure Svitlana Mayfield APRN.CALL CENTER OPERATIONS MANAGER Work Phone: Neurology Comment on above: Intractable 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 aura and without status migrainosus (Primary Dx) Start: 01-05-2025 End: 01-05-2025 ambulatory SVITLANA MAYFIELD Facility:[facility] Start: 01-04-2025 End: 01-04-2025 Patient encounter procedure Alejandro Villar MD, PhD Work Phone: Neurology Comment on above: Localization-related (focal) (partial) symptomatic epilepsy and epileptic syndromes with complex partial seizures, intractable, without status epilepticus (HCC) (Primary Dx); Memory loss Start: 01-04-2025 End: 01-04-2025 ambulatory ALEJANDRO VILLAR Facility:[facility] Start: 12-13-2024 End: 12-13-2024 Office outpatient visit 15 minutes Aftab Dey DO Work Phone: [facility] Comment on above: Abdominal wall hemat garrett, subsequent encounter (Primary Dx) Start: 12-13-2024 End: 12-13-2024 ambulatory AFTAB H ITZKOWITZ Not Available Start: 12-09-2024 End: 12-11-2024 Refill Lauren Otero CALL CENTER OPERATIONS MANAGER Work Phone: Neurology Comment on above: Refill Request Start: 12-08-2024 End: 12-08-2024 ambulatory Broderick Howard DO Work Phone: [facility] Work Phone: Start: 12-08-2024 End: 12-08-2024 Patient encounter procedure Broderick Howard DO Work Phone: [facility] Work Phone: Start: 11-29-2024 End: 11-29-2024 Office outpatient new 45 minutes Aftab H Itzkowitz DO Work Phone: [facility] Comment on above: Abdominal wall hemat garrett, initial encounter (Primary Dx) Start: 11-29-2024 End: 11-29-2024 ambulatory AFTAB H ITZKOWITZ Not Available Start: 11-28-2024 End: 11-28-2024 ambulatory Broderick Howard DO Work Phone: [facility] Work Phone: Start: 11-28-2024 End: 11-28-2024 Patient encounter procedure Broderick Howard DO Work Phone: [facility] Work Phone: Start: 11-24-2024 End: 11-24-2024 Emergency department patient visit Broderick Howard DO Work Phone: [facility] Work Phone: Start: 11-24-2024 End: 11-24-[address] [facility] Work Phone: Start: 11-24-2024 End: 11-24-2024 [facility] Start: 11-17-2024 End: 11-17-2024 ambulatory [facility] Work Phone: Start: 11-17-2024 End: 11-17-2024 Patient encounter procedure [facility] Work Phone: Start: 11-02-2024 End: 11-03-2024 ambulatory Shashi B Rhiew Facility:[facility] Start: 11-02-2024 End: 11-03-2024 Patient encounter procedure Shashi B Rhiew [facility] Start: 10-27-2024 End: 10-27-2024 Encounter for other preprocedural examination [facility] Start: 10-27-2024 End: 10-27-2024 Patient encounter procedure [facility] Phys[facility] Work Phone: Start: 10-25-2024 Non-patient / Non-visit [facility] Phys[facility] Work Phone: Start: 10-25-2024 End: 10-25-2024 ambulatory Shashi B Rhiew Facility:[facility] Start: 10-23-2024 End: 10-23-2024 ambulatory Shashi B Rhiew Facility:[facility] Start: 10-23-2024 End: 10-23-2024 Patient encounter procedure Shashi B Rhiew [facility] Start: 10-02-2024 End: 10-02-2024 ambulatory KITTY WALTERS MILLARD Facility:[facility] Start: 09-07-2024 End: 09-07-2024 ambulatory DO Broderick Lee Work Phone: [facility] Work Phone: Start: 09-07-2024 End: 09-07-2024 Patient encounter procedure DO Broderick Howard Work Phone: [facility] Physician [facility] Work Phone: Start: 09-05-2024 End: 09-05-2024 Patient encounter procedure Randa Reilly MD Work Phone: Neurology Comment on above: Intractable 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 aura and without status migrainosus (Primary Dx) Start: 09-05-2024 End: 09-05-2024 ambulatory RANDA REILLY Facility:[facility] Start: 08-31-2024 End: 08-31-2024 ambulatory KITTY MILLARD Facility:[facility] Start: 08-31-2024 End: 08-31-2024 Office outpatient visit 25 minutes Kitty Millard MD Work Phone: Cardiology Comment on above: 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); Cardiac pacemaker in situ; Bradycardia Start: 08-30-2024 End: 08-30-2024 ambulatory DO Broderick Ball [facility] [facility] [place] Work Phone: Start: 08-30-2024 End: 08-30-2024 Patient encounter procedure DO Broderick Ball Work Phone: [facility] Physician [facility] Work Phone: Start: 08-29-2024 End: 08-29-2024 ambulatory DO Broderick Ball Work Phone: [facility] Work Phone: Start: 08-29-2024 End: 08-29-2024 Patient encounter procedure DO Broderick Ball Work Phone: [facility] Work Phone: Start: 08-29-2024 End: 08-29-2024 ambulatory DO Broderick Ball Work Phone: [facility] Work Phone: Start: 08-29-2024 End: 08-29-2024 Patient encounter procedure DO Broderick Ball Work Phone: [facility] Physician Group-[facility] Gastroenterology Work Phone: Start: 08-28-2024 Non-patient / Non-visit DO Miguel A camargo Ball Work Phone: [facility] Work Phone: Start: 07-05-2024 Non-patient / Non-visit DO Miguel A Howard Work Phone: [facility] Work Phone: Start: 07-05-2024 End: 07-05-2024 ambulatory DO Broderick Howard Work Phone: [facility] Work Phone: Start: 07-05-2024 End: 07-05-2024 Departed Referred DO Broderick Howard Work Phone: [facility]-LAB [facility] Start: 06-29-2024 Non-patient / Non-visit DO Miguel A Howard Work Phone: [facility] Work Phone: Start: 06-29-2024 End: 06-29-2024 Patient encounter procedure Alejandro Villar MD, PhD Work Phone: Neurology Comment on above: Focal epilepsy with impairment of consciousness, intractable (HCC) (Primary Dx); Partial epilepsy with impairment of consciousness, intractable (HCC) Start: 06-27-2024 End: 06-27-2024 ambulatory DO Broderick Howard Work Phone: [facility] Work Phone: Start: 06-27-2024 End: 06-27-2024 Patient encounter procedure DO Broderick Howard Work Phone: [facility] Work Phone: Start: 06-12-2024 End: 06-12-2024 ambulatory JACK POMPA Not Available Start: 06-08-2024 End: 06-08-2024 ambulatory DO Broderick Ball Work Phone: [facility] Work Phone: Start: 06-08-2024 End: 06-08-2024 Patient encounter procedure DO Broderick Ball Work Phone: [facility] Physician [facility] Nephrology Sunny Work Phone: Start: 06-05-2024 Non-patient / Non-visit DO Miguel A Howard Work Phone: [facility] Physician [facility] Work Phone: Start: 06-05-2024 End: 06-05-2024 ambulatory Keith Parks MD Facility:[facility] Start: 05-30-2024 End: 05-30-2024 ambulatory DO Broderick Howard Work Phone: [facility] Work Phone: Start: 05-30-2024 End: 05-30-2024 Patient encounter procedure DO Broderick Howard Work Phone: [facility]-MRI [facility] [place] Work Phone: Start: 05-23-2024 End: 05-23-2024 Patient encounter procedure Randa Reilly MD Work Phone: Neurology Comment on above: Intractable 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 aura and without status migrainosus (Primary Dx) Start: 05-15-2024 Non-patient / Non-visit DO Miguel A Howard Work Phone: [facility] Work Phone: Start: 05-15-2024 End: 05-15-2024 ambulatory Keith Parks MD Facility:[facility] Start: 05-05-2024 Non-patient / Non-visit DO Miguel A camargo Lee Work Phone: [facility] Work Phone: Start: 05-03-2024 End: 05-03-2024 ambulatory DAVID MCFADDEN Not Available Start: 04-21-2024 End: 04-21-2024 ambulatory DO Broderick Howard Work Phone: [facility] Work Phone: Start: 04-21-2024 End: 04-21-2024 Patient encounter procedure DO Broderick Howard Work Phone: [facility] Physician Group-[facility] Neurosurgery Work Phone: Start: 03-29-2024 End: 03-29-2024 Patient encounter procedure DO Broderick Lee Work Phone: [facility] Physician Group-[facility] Work Phone: Start: 03-28-2024 End: 03-28-2024 Patient encounter procedure DO Broderick Howard Work Phone: [facility]-MRI [facility] [place] Work Phone: Start: 03-09-2024 End: 03-09-2024 ambulatory DO Broderick Howard Work Phone: [facility] Work Phone: Start: 03-09-2024 End: 03-09-2024 Patient encounter procedure DO Broderick Howard Work Phone: [facility]-Pacemaker Check Start: 03-08-2024 Follow-up encounter Kitty Millard MD Work Phone: [facility] Start: 03-08-2024 Patient encounter procedure Kitty Millard MD Work Phone: [facility] Start: 03-07-2024 End: 03-07-2024 Patient encounter procedure Randa Reilly MD Work Phone: Neurology Comment on above: Intractable 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 aura and without status migrainosus (Primary Dx); Cervicalgia; SHELL (obstructive sleep apnea) Start: 03-03-2024 Non-patient / Non-visit DO Miguel A camargo Ball Work Phone: [facility] Physician [facility] Work Phone: Start: 02-15-2024 Non-patient / Non-visit DO Miguel A camargo Ball Work Phone: [facility] Physician Group-[facility] Work Phone: Start: 02-10-2024 Non-patient / Non-visit DO Miguel A camargo Ball Work Phone: [facility] Physician [facility] [employer] Work Phone: Start: 02-09-2024 End: 02-09-2024 ambulatory [facility] Work Phone: Start: 02-09-2024 End: 02-09-2024 Patient encounter procedure [facility] Physician [facility] Work Phone: Start: 12-23-2023 End: 12-23-2023 Patient encounter procedure Alejandro Villar MD, PhD Work Phone: Neurology Comment on above: Intractable 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 aura and without status migrainosus (Primary Dx) Start: 11-24-2023 End: 11-24-2023 ambulatory Broderick Lee Other [facility] [employer] Other Start: 11-24-2023 Office outpatient vi sit 15 minutes Broderick Howard [facility] Start: 11-24-2023 End: 11-24-2023 Patient encounter procedure [facility] Work Phone: Start: 09-13-2023 Refill Alejandro wright MD, PhD Work Phone: Neurology Comment on above: Refill Request Patient Update Start: 09-08-2023 Follow-up encounter Kitty Millard MD Work Phone: [facility] Start: 09-08-2023 End: 09-08-2023 Patient encounter procedure Kitty Millard MD Work Phone: [facility] Comment on above: 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); Cardiac pacemaker in situ; Bradycardia Start: 08-25-2023 End: 08-25-2023 ambulatory Niki Blades Other [employer] Other Start: 08-25-2023 Postop follow up vis it related to original px Niki Blades [facility] Neurosurgery Start: 08-16-2023 End: 08-16-2023 ambulatory Niki Blades Other [employer] Other Start: 08-16-2023 Postop follow up vis it related to original px Niki Blades [facility] Neurosurgery Start: 08-13-2023 End: 08-13-2023 ambulatory Broderick Ball Other [employer] Other Start: 08-13-2023 Telephone encounter Broderick Howard FP [facility] Start: 08-12-2023 End: 08-12-2023 ambulatory Niki Blades Other [employer] Other Start: 08-12-2023 Postop follow up vis it related to original px Niki Blades [facility] Neurosurgery Start: 08-03-2023 End: 08-05-2023 Admission to same day surgery center DO Broderick Ball Work Phone: [facility]-Surgery Center [facility] [place] Start: 08-03-2023 End: 08-05-2023 ambulatory DO Broderick Ball Work Phone: [facility] Work Phone: Start: 08-02-2023 End: 08-02-2023 ambulatory Broderick Ball Other [employer] Other Start: 08-02-2023 Telephone encounter Broderick Howard KARISHMA [facility] Start: 07-20-2023 End: 07-20-2023 ambulatory DO Broderick Ball Work Phone: [facility] Work Phone: Start: 07-20-2023 End: 07-20-2023 Patient encounter procedure DO Broderick Ball Work Phone: [facility]-Pre-Surgical Testing Work Phone: Start: 07-09-2023 End: 07-09-2023 ambulatory Niki Blades Other [employer] Other Start: 07-09-2023 Telephone encounter Niki Blades F [facility] [employer] Start: 07-07-2023 End: 07-07-2023 ambulatory Niki Weeks Other [employer] Other Start: 07-07-2023 Office outpatient ne w 45 minutes Niki Weeks [facility] Neurosurgery Start: 06-08-2023 Follow-up encounter Kitty Millard MD Work Phone: [facility] Start: 06-08-2023 Pacemaker Remote F/U Kitty Millard MD Work Phone: [facility] Start: 06-04-2023 ambulatory Facility:[id number] Start: 06-04-2023 End: 06-04-2023 ambulatory DO Broderick Howard Work Phone: [facility] Work Phone: Start: 06-04-2023 End: 06-04-2023 Patient encounter procedure DO Broderick Howard Work Phone: [facility]-MRI [facility] [place] Work Phone: Start: 05-14-2023 ambulatory Facility:9 0 Start: 05-14-2023 End: 05-14-2023 ambulatory DO Broderick Howard Work Phone: [facility] Work Phone: Start: 05-14-2023 End: 05-14-2023 Patient encounter procedure DO Broderick Howard Work Phone: [facility]-Pacemaker Check Start: 05-06-2023 End: 05-06-2023 ambulatory Bertram Sanders Other [employer] Other Start: 05-06-2023 Patient encounter procedure Bertram Sanders [facility] Gastroenterology Start: 05-03-2023 End: 05-03-2023 ambulatory Broderick Lee Other [employer] Other Start: 05-03-2023 Office outpatient vi sit 15 minutes Broderick Howard [facility] Start: 05-03-2023 Telephone encounter Broderick SCHWARZ [facility] Start: 03-29-2023 End: 04-14-[address] BRODERICK HOWARD [facility] [employer] Other Start: 03-29-2023 Telephone encounter Broderick SCHWARZ [facility] Start: 03-25-2023 End: 03-25-2023 ambulatory Broderick Howard Other [employer] Other Start: 03-25-2023 Office outpatient vi sit 25 minutes Broderick Howard [facility] Start: 03-15-2023 End: 04-14-2023 ambulatory AGUILAR H FAWWAD Facility:H1 Start: 02-24-2023 Follow-up encounter Kitty Millard MD Work Phone: [facility] Start: 02-24-2023 Pacemaker Remote F/U Kitty Millard MD Work Phone: [facility] Start: 02-15-2023 End: 03-12-2023 ambulatory AGUILAR H FAWWAD Facility:H1 Start: 02-03-2023 End: 02-03-2023 ambulatory Bertram Sanders Other [employer] Other Start: 02-03-2023 Telephone encounter Bertram SCHWARZ G Gastroenterology Start: 01-13-2023 End: 02-12-2023 ambulatory AGUILAR H FAWWAD Facility:H1 Start: 01-07-2023 End: 01-07-2023 ambulatory Bertram Shannony Other [employer] Other Start: 01-07-2023 Patient encounter procedure Bertram GERMAIN Gastro[facility] Start: 12-16-2022 End: 01-13-2023 ambulatory AGUILAR H FAWWAD Facility:H1 Start: 11-25-2022 End: 11-25-2022 ambulatory Broderick Howard Other [employer] Other Start: 11-25-2022 Follow-up encounter Kitty Millard MD Work Phone: [facility] Start: 11-25-2022 Office outpatient vi sit 25 minutes Broderick GERMAIN [facility] Start: 11-25-2022 Pacemaker Remote F/U Kitty Millard MD Work Phone: [facility] Start: 11-23-2022 Patient encounter procedure Broderick Howard Other [employer] Other Start: 11-16-2022 End: 12-16-2022 ambulatory AGUILAR H FAWWAD Facility:H1 Start: 10-15-2022 Adult health examination Niki Blades Other [employer] Other Start: 10-15-2022 Gynecological examination normal Niki Blades Other [employer] Other Start: 10-15-2022 End: 11-15-2022 ambulatory AGUILAR H FAWWAD Facility:H1 Start: 09-15-2022 End: 10-14-2022 ambulatory AGUILAR H FAWWAD Facility:H1 Start: 09-10-2022 End: 09-10-2022 Patient encounter procedure Alejandro Villar MD, PhD Work Phone: Neurology Comment on above: 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, intractable (HCC) Start: 08-26-2022 Follow-up encounter Kitty Millard MD Work Phone: [facility] Start: 08-26-2022 Pacemaker Remote F/U Kitty Millard MD Work Phone: [facility] Start: 08-16-2022 End: 09-14-2022 ambulatory AGUILAR H FAWWAD Facility:H1 Start: 08-10-2022 End: 08-11-[address] [...] 01-06-2022 End: 01-06-2022 ambulatory Bertram Sanders Other [employer] Other Start: 01-06-2022 Patient encounter procedure Bertram Sanders [facility] Gastroenterology Start: 10-14-2020 End: 10-14-2020 Pre-procedure evaluation check Niki Blades Other [employer] Other Procedures Date Procedure Procedure Detail Performing Clinician Start: 08-01-2025 MR lumbar spine wo con Broderick Ball DO Work Phone: Start: 11-24-2024 CT of abdomen and pelvis without contrast Broderick Ball DO Work Phone: Start: 11-24-2024 Bacteria identified in Blood by Culture Broderick Ball DO Work Phone: Start: 11-02-2024 Laminectomy Shashi Ap Start: 08-31-2024 Ecg routine ecg w/least 12 [...] Excision of lumbar intervertebral disc DO Broderick Howard Work Phone: Start: 08-03-2023 X-ray of lumbar spine, single view DO Be njamin Ball Work Phone: Start: 06-08-2023 PACEMAKER REMOTE [...] (physical object) Shashi Anselmomerlynw Cataract surgery Shashi Brionesi ew Cholecystectomy Shashi Anselmomerlyn w Colonoscopy Shashi Anselmodhara End: 01-25-2022 Depression screening Niki Blades Other Esophagogastroduodenoscopy R callie De Souza Hammer toe operation Shashi De [...] Start: 06-29-2027 Diabetes Screening Diabetes Screenin g [facility] Start: 04-10-2026 BP Controlled (<130/80) BP Controlle d (<130/80) [facility] Start: 01-09-2026 End: 01-09-2026 Patient encounter procedure 01/09/2026 11:00 AM EST Office Visit Neurology [address] [place] [address] Alejandro Villar MD, PhD [address] [place] [address] annaul follow up Neurology Comment on above: annaul follow up Start: 01-05-2026 BP Controlled (<130/80) BP Controlle d (<130/80) [facility] Start: 01-04-2026 BP Controlled (<130/80) BP Controlle d (<130/80) [facility] Start: 10-30-2025 End: 10-30-2025 Patient encounter procedure 10/30/2025 10:30 AM EST Office Visit Neurology [address] [place] [address] [place] [address] [place] [address] Botox Neurology Comment on above: Botox Start: 07-18-2025 End: 07-18-2025 Patient encounter procedure 07/18/2025 10:00 AM EDT Office Visit Neurology [address] [place] [address] [place] [address] [place] [address] Botox Neurology Comment on above: Botox Start: 07-16-2025 Influenza vaccination Influenza Vacc ine (#1) [facility] Start: 07-02-2025 Patient referral [facility] Work Phone: Start: 05-21-2025 End: 05-21-2025 Patient encounter procedure 05/21/2025 8:00 AM EDT Office Visit Neurology [address] [id number] Elian Jones DO [address] [place] [address] [phone] MCI (mild cognitive impairment) [G31.84] Neurology Comment on above: MCI (mild cognitive impairment) [G31.84] Start: 04-10-2025 End: 04-10-2025 Patient encounter procedure 04/10/2025 11:30 AM EDT Office Visit Neurology [address] [place] [address] [place] [address] [place] [address] [phone] Botox Neurology Comment on above: Botox Start: 2025 RSV Vaccine (1 - 1-d ose 75+ series) RSV Vaccine (1 - 1-dose 75+ series) [facility] Start: 01-05-2025 End: 01-05-2025 Patient encounter procedure 01/05/2025 12:00 PM EST Office Visit Neurology [address] [place] [address] Svitlana Mayfield APRN.[employer] OPERATIONS MANAGER [address] [place] [address] Botox Neurology Comment on above: Botox Start: 01-04-2025 End: 01-04-2025 Patient encounter procedure 01/04/2025 2:00 PM EST Office Visit Neurology [address] [place] [address] Alejandro Villar MD, PhD [address] [place] [place] [address] Follow up Neurology Comment on above: Follow up Start: 12-12-2024 End: 12-12-2024 Patient encounter procedure 12/12/2024 11:00 AM EST Office Visit Neurology [address] [place] [place] [address] [place] [address] [address] [place] [address] Botox Neurology Comment on above: Botox Start: 11-28-2024 DIABETES SCREEN DIABETES SCREEN [facility] Start: 11-28-2024 Diabetes Screening Diabetes Screenin g [facility] Start: 11-24-2024 [facility] Start: 11-24-2024 Bacteria identified in Blood by Culture Blood Culture [facility] Start: 11-15-2024 Advance Directive Discussion Advance Directive Discussion [facility] Start: 11-15-2024 Medicare Advantage A nnual Wellness Visit Medicare Advantage Annual Wellness Visit [facility] Start: 10-02-2024 End: 10-02-2024 Patient encounter procedure 10/02/2024 2:40 PM EST Office Visit Cardiology [address] [place] [id number] echo Cardiology Comment on above: echo Start: 09-05-2024 End: 09-05-2024 Patient encounter procedure 09/05/2024 1:30 PM EDT Office Visit Neurology [address] [place] [place] [address] [place] [address] [address] [place], [place] [id number] Botox Neurology Comment on above: Botox Start: 08-31-2024 End: 08-31-2024 Patient encounter procedure 08/31/2024 10:00 AM EDT Office Visit Cardiology [address] [place] [address] [place] [address] [place], [place] [id number] return in about 1 year (around 09/08/2024) Cardiology Comment on above: return in about 1 ye ar (around 09/08/2024) Start: 07-16-2024 Covid-19 Vaccine ( season) Covid-19 Vaccine () [facility] Start: 07-16-2024 Influenza vaccination Influenza Vacc ine (#1) [facility] Start: 06-29-2024 End: 06-29-2024 Patient encounter procedure 06/29/2024 1:00 PM EDT Office Visit Neurology [address] [place] [address] Alejandro Villar MD, PhD [address] [place], [place] [id number] Follow Up-rescheduled from 06/22 Neurology Comment on above: Follow Up-reschedule d from 06/22 Start: 04-21-2024 Patient referral [facility] Work Phone: Start: 11-15-2023 Advance Directive Discussion Advance Directive Discussion [facility] Start: 08-05-2023 [facility] Start: 08-03-2023 Hospital admission [facility] Start: 08-03-2023 [facility] Start: 07-16-2023 Covid-19 Vaccine ( season) Covid-19 Vaccine () [facility] Start: 07-16-2023 Influenza vaccination C [facility] Start: 11-15-2022 ADVANCE DIRECTIVE DISCUSSION ADVANCE DIRECTIVE DISCUSSION [facility] Start: 09-10-2022 End: 11-10-2022 levETIRAcetam [Mass/volume] in Serum or Plasma [facility] Work Phone: Comment on above: Expected: 09/10/2022 , Expires: 11/10/2022 Start: 09-10-2022 End: 11-10-2022 Zonisamide [Mass/volume] in Serum or Plasma [facility] Work Phone: Comment on above: Expected: 09/10/2022 , Expires: 11/10/2022 Start: 07-16-2022 Influenza vaccination INFLUENZA (#1) [facility] Start: 04-30-2022 Screening for malign ant neoplasm of colon [facility] Start: 11-15-2021 ADVANCE DIRECTIVE DISCUSSION ADVANCE DIRECTIVE DISCUSSION [facility] Start: 02-04-2019 Pneumococcal Vaccine : 50+ (2 of 2 - PCV) Pneumococcal Vaccine: 50+ (2 of 2 - PCV) [facility] Start: 02-04-2019 Pneumococcal Vaccine : 65+ (2 - PCV) Pneumococcal Vaccine: 65+ (2 - PCV) [facility] Start: 02-04-2019 Pneumococcal Vaccine : 65+ (2 of 2 - PCV) Pneumococcal Vaccine: 65+ (2 of 2 - PCV) [facility] Start: 2015 BONE DENSITY BONE DENSITY [facility] Start: 2015 Bone Density Screening Bone Density Screening [facility] Start: 2015 Pneumococcal Vaccine : 65+ Years (1 of 1 - PCV) Pneumococcal Vaccine: 65+ Years (1 of 1 - PCV) [facility] Start: 2015 PNEUMOCOCCAL: 65+ (1 - PCV) PNEUMOCOCCAL: 65+ (1 - PCV) [facility] Start: 2015 Screening for osteoporosis Bone Dens ity Screening [facility] Start: 2010 RSV Vaccine (1 - 1-d ose 60+ series) RSV Vaccine (1 - 1-dose 60+ series) [facility] Start: 2010 RSV Vaccine (1 - Ris k 60-74 years 1-dose series) RSV Vaccine (1 - Risk 60-74 years 1-dose series) [facility] Start: 2000 SHINGRIX VACCINE (1 of 2) [place] GRIX VACCINE (1 of 2) [facility] Start: 1995 COLOGUARD (FIT-DNA) COLOGUARD (FIT-D NA) [facility] Start: 1995 Colonoscopy COLONOSCOPY [facility] Start: 1995 COLORECTAL CANCER SCREENING COLORECTAL CANCER SCREENING [facility] Start: [address] COLONOGRAPHY [facility] Start: 1995 FECAL OCCULT BLOOD FECAL OCCULT BLOO D [facility] Start: 1995 Lipid 1996 panel - S akila or Plasma Lipid Screening [facility] Start: 1995 Lipid panel Lipid Screening [facility] Start: 1995 LIPID SCREEN LIPID SCREEN [facility] Start: 1995 Screening for malign ant neoplasm of colon [facility] Start: 1995 SIGMOIDOSCOPY SIGMOIDOSCOPY [facility] Start: 1990 Mammography [facility] Start: 1990 Screening for malign ant neoplasm of breast [facility] Start: 1969 Urine microalbumin profile [facility] Start: 1968 ANNUAL PCP TEAM WRAPPER SELECTOR RAVINDRA DISEASE VISIT ANNUAL PCP TEAM CHRONIC DISEASE VISIT [facility] Start: 1968 BP CONTROLLED (<130/80) BP CONTROLLE D (<130/80) [facility] Start: 1968 HEPATITIS C SCREENING HEPATITIS C [facility] Start: 1968 Hepatitis C screening Hepatitis C [facility] Start: 1950 COVID-19 VACCINE (#1) COVID-19 VACCI NE (#1) [facility] Start: 1950 Screening for malign ant neoplasm of colon [facility] BACH SCREENING TEST BACH SCREENI NG TEST Procedures Routine Memory loss Ordered: 01/04/2025 [facility] Work Phone: Comment on above: Ordered: 01/04/2025 End: 07-23-2023 ECG COMPLETE ECG COMPLETE ECG Routine Chronic fatigue 1 Occurrences starting 07/23/2022 until 07/23/2023 [facility] Work Phone: Comment on above: 1 Occurrences starti ng 07/23/2022 until 07/23/2023 ECG COMPLETE ECG COMPLETE ECG Routine Sinus node dysfunction (HCC) Cardiac pacemaker in situ Bradycardia Ordered: 09/08/2023 [facility] Work Phone: Comment on above: Ordered: 09/08/2023 ECG COMPLETE ECG COMPLETE ECG Routine Sinus node dysfunction (HCC) Ordered: 08/31/2024 [facility] Work Phone: Comment on above: Ordered: 08/31/2024 End: 08-31-2025 Echocardiography ECHO Cardiology Routine Sinus node dysfunction (HCC) 1 Occurrences starting 08/31/2024 until 08/31/2025 [facility] Comment on above: 1 Occurrences starti ng 08/31/2024 until 08/31/2025 MG Breast - bilatera l Screening [facility] MG Breast - bilatera l Screening [facility] Patient Education [facility] Work Phone: Patient referral [facility] Work Phone: Renal function 1999 panel - Serum or Plasma [facility] Renal function 1999 panel - Serum or Plasma [facility] Renal function 1999 panel - Serum or Plasma [facility] US Lower extremity v ein - bilateral [facility] US Lower extremity v ein - right [facility] [place] [facility] Immunizations Immunization Date Immunization Notes Care Provider [place] [facility]2024 influenza, high dose seasonal, preservative-free DO Broderick Howard Work Phone: [facility] 08-29-2024 influenza virus vaccine, unspecified formulation Elian Jones DO Work Phone: [facility] 08-31-2023 influenza virus vaccine, unspecified formulation Randa Reilly MD Work Phone: [facility] 07-30-2022 influenza virus vaccine, split virus (incl. purified surface antigen) Niki Weeks Other [employer] Other 07-30-2022 influenza virus vaccine, unspecified formulation [facility] 09-10-2021 COVID-19 mRNA-1273 (Moderna) DO [employer] Work Phone: [facility] 07-30-2021 influenza virus vaccine, split virus (incl. purified surface antigen) Niki Blades Other [employer] Other 07-30-2021 influenza virus vaccine, unspecified formulation [facility] 01-14-2021 COVID-19 mRNA-1273 (Moderna) DO [employer] Work Phone: [facility] 12-17-2020 COVID-19 mRNA-1273 (Moderna) DO [employer] Work Phone: [facility] 09-03-2020 influenza virus vaccine, split virus (incl. purified surface antigen) Niki Blades Other [employer] Other 09-03-2020 influenza virus vaccine, unspecified formulation [facility] 08-23-2019 influenza virus vaccine, split virus (incl. purified surface antigen) Niki Blades Other [employer] Other 08-23-2019 influenza virus vaccine, unspecified formulation [facility] 09-07-2018 influenza virus vaccine, split virus (incl. purified surface antigen) Niki Blades Other [employer] Other 09-07-2018 influenza virus vaccine, unspecified formulation [facility] 02-04-2018 pneumococcal polysaccharide vaccine, 23 valent Niki Blades Other [facility] Payers Date Payer Category Payer Self-pay [id number] 2024 Medicare (Managed Care) 1.2. [id number] 2024 Unknown [employer] [place] [id number] 2024-Present [phone] [address] [place] [address] HMO [id number] 2024 Unknown [id number] 2021 Unknown [id number] 2015 Private Health Insurance FLORY JUAREZ MEDICARE SUPPLEMENT [id number] 2015-Present [phone] [address] [place] [address] Indemnity [id number] 2013 Medicare [id number] [id number] .[id number] 2008 Unknown [place] [id number] 1959 Medicare [id number] 2.16.840.1.189639.19 1959 Medicare [id number] 2.16.840.1.640746.19 1950 Unknown [id number] 2.840.1.860075.3.579.2 .593 1950 Unknown [id number] .840.1.089814.3.579.2 .593 1950 Unknown [id number] 2.840.1.896986.3.579.2 .59 1950 Unknown [id number] 2.16.840.1.183612.3.579.2 .593 1950 Unknown [id number] 2.16.840.1.894352.3.579.2 .593 1950 Unknown [id number] 2.16.840.1.920391.3.579.2 .593 1950 Unknown [id number] 2.16.840.1.345459.3.579.2 .593 1950 Unknown [id number] 2.16.840.1.301827.3.579.2 .593 1950 Unknown [id number] 2.16.840.1.828394.3.579.2 .593 1950 Unknown [id number] 2.16.840.1.251176.3.579.2 .593 1950 Unknown [id number] 2.840.1.689953.3.579.2 .593 1950 Unknown [id number] 2.840.1.885522.3.579.2 .593 1950 Unknown [id number] 2.840.1.035112.3.579.2 .593 1950 Unknown [id number] 2.840.1.368802.3.579.2 .593 1950 Unknown [id number] 2.840.1.089680.3.579.2 .593 1950 Unknown [id number] 2.840.1.698101.3.579.2 .593 1950 Unknown [id number] 2.840.1.481187.3.579.2 .593 1950 Unknown [id number] 2.16.840.1.927728.3.579.2 .356 1950 Unknown [id number] 2.16.840.1.617231.3.579.2 .356 1950 Unknown [id number] 2.16.840.1.549502.3.579.2 .196 1950 Unknown [id number] 2.16840.1.378121.3.579.2 .196 1950 Unknown [id number] 2.16.840.1.548324.3.579.2 .727 1950 Unknown [id number] 2.16.840.1.022134.3.579.2 .72 1950 Unknown [id number] 2.16.840.1.250393.3.579.2 .72 1950 Unknown [id number] 2.16.840.1.474915.3.579.2 .1950 Unknown [id number] 2.16.840.1.970921.3.579.2 .1950 Unknown [id number] 2.16840.1.802104.3.579.2 .1258 1950 Unknown [id number] 2.16840.1.319934.3.579.2 .1258 1950 Unknown [id number] 2.840.1.758608.3.579.2 .1258 1950 Unknown [id number] 2.16840.1.748822.3.579.2 .1258 1950 Unknown [id number] 2.840.1.411477.3.579.2 .1258 1950 Unknown [id number] 2.16840.1.727996.3.579.2 .1258 1950 Unknown [id number] 2.840.1.262040.3.579.2 .727 Medicare Medicare [id number] Unknown [id number] 2.16840.1.266707.3.579.2 .531 Unknown [id number] 2.840.1.071027.3.579.2 .531 Unknown [id number] 2.16840.1.874626.3.579.2 .531 Social History Date Type Detail Facility Start: 09-10-2022 End: 09-08-2023 Sex Assigned At [facility] Start: 02-19-2011 End: 11-24-2024 Tobacco smoking status NHIS Never smoked tobacco [facility] Start: 02-19-2011 End: 09-10-2022 Tobacco use and exposure Smokeless tobacco non-user [facility] Start: 11-28-2021 End: 07-18-2025 Alcohol intake Current non-drinker of alcohol (finding) [facility] Start: 1950 Sex Assigned At Not on file [facility] Start: 07-13-2022 End: 09-10-2022 Exposure to SARS-CoV-2 (event) Not sure [facility] Start: 1950 Sex Assigned At Female F [facility] Start: 09-10-2022 End: 09-08-2023 History of Social function [facility] Start: 10-16-2012 Adult Depression Screening Assessment 2 [facility] Tobacco smoking status No Smokin g Status Entered [facility] Start: 11-17-2024 End: 02-22-2025 Sex Female (finding) [facility] Start: 11-29-2024 Alcoholic beverage intake Current drinker of alcohol (finding) [facility] Medical Equipment Procedure Code Equipment Code Equipment Origin al Text Equipment Identifier Dates Plate Bn 12mm Cm f Ti 2 H Lp - [id number] Start: 08-16-2015 Pin Crss Sd Scr 1.5x4mm - [id number] Start: 08-16-2015 [id number] [employer] [id number] Start: 05-22-2015 [id number] [employer] Novus [id number] Start: 05-22-2015 [id number] [employer] [id number] Start: 05-22-2015 Goals Date Patient Goal Desired Activity /State Personal health goal Functional Status Date Assessment Result Facility 11-02-2024 Functional Status No [facility] 08-05-2023 Functional status Patient at Baseline [facility] Work Phone: 08-19-2015 Are you deaf, or do you have serious difficulty hearing No 08/19/2015 11:02 AM EDT Vita Gibbs (Rn) (Hist), RN No [facility] 08-19-2015 Are you blind, or do you have serious difficulty seeing, even when wearing glasses No 08/19/2015 11:02 AM Vita ElizondoRn) (Hist), RN No [facility] 08-19-2015 Do you have serious difficulty walking or climbing stairs No 08/19/2015 11:02 AM XANDERT Vita GibbsRn) (Hist), RN No [facility] 08-19-2015 Do you have difficul ty dressing or bathing Yes 08/19/2015 11:02 AM Vita Elizondo (Rn) (Hist), RN Yes [facility] 08-19-2015 Because of a physica l, mental, or emotional condition, do you have difficulty doing errands alone such as visiting a physician's office or shopping Yes 08/19/2015 11:02 AM XANDERT Vita Gibbs) (Hist), RN Yes [facility] Mental Status Date Assessment Result Facility 08-05-2023 Cognitive function Cognitive Sta tus Patient at Baseline [facility] Work Phone: 08-19-2015 Because of a physica l, mental, or emotional condition, do you have serious difficulty concentrating, remembering, or making decisions No 08/19/2015 11:02 AM Vita Elizondo) (Hist), RN No [facility] Clinical Notes 01-24-2015 to 07-18-2025 Randa Reilly MD - 07/18/2025 10:24 AM Lon Mcleod RN - 07/18/2025 9:59 AM Randa Allen MD - 07/18/2025 10:23 AM Randa Allen MD - 07/18/2025 10:23 AM EDT Note Date & Type Note Facility 07-18-2025 Note HNO ID: [id number] Author: RANDA REILLY MD Service: ? Author Type: Physician Type: Progress Notes Filed: 07/18/2025 12:52 Note Text: PROGRESS NOTE- HEADACHE MEDICINE SERVICE DATE: July 18, 2025 Location: [facility] Participants: patient, and provider HPI: Here for follow up and Botox therapy. Migraine Characteristics: see note from September 05, 2024 Current Outpatient Medications Medication Sig zonisamide (ZONEGRAN) 100 mg capsule Take 3 capsules by mouth daily at bedtime. ergocalciferol 50,000 unit capsule (VITAMIN D2, DRISDOL) Take 1 capsule by mouth one time a week. ferrous sulfate 325 mg (65 mg iron) tablet Take 1 tablet by mouth every 48 hours. venlafaxine ER (EFFEXOR XR) 150 mg 24 hr capsule Take 150 mg by mouth once daily. losartan (COZAAR) 25 mg tablet TAKE 1 TABLET BY MOUTH ONCE EVERY MORNING FOR HTM linaCLOtide (LINZESS) 72 mcg capsule Take 72 mcg by mouth. doxycycline hyclate (VIBRAMYCIN) 100 mg capsule Take 100 mg by mouth. levETIRAcetam (KEPPRA) 750 mg tablet Take 1 [...] Reactions Lyrica [Pregabalin] Rash Dexamethasone Rash BP 124/74 Pulse 82 Ht 157.5 cm (5' 2 ) Wt 87.1 kg (192 lb 0.3 oz) BMI 35.12 kg/m? ASSESSMENT: - 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 aura - chronic cervicalgia - CKD RECOMMENDATIONS: 1. Preventive therapy: -continue Botox. See attached procedure note 2. Follow up in 3 months for Botox with me or WENDY Randa Reilly MD [facility] 07-18-2025 History of Presen t illness Narrative PROGRESS NOTE- HEADACHE MEDICINE SERVICE DATE: July 18, 2025 Location: [facility] Participants: patient, and provider HPI: Here for follow up and Botox therapy. Migraine Characteristics: see note from September 05, 2024 Current Outpatient Medications Medication Sig zonisamide (ZONEGRAN) 100 mg capsule Take 3 capsules by mouth daily at bedtime. ergocalciferol 50,000 unit capsule (VITAMIN D2, DRISDOL) Take 1 capsule by mouth one time a week. ferrous sulfate 325 mg (65 mg iron) tablet Take 1 tablet by mouth every 48 hours. venlafaxine ER (EFFEXOR XR) 150 mg 24 hr capsule Take 150 mg by mouth once daily. losartan (COZAAR) 25 mg tablet TAKE 1 TABLET BY MOUTH ONCE EVERY MORNING FOR HTM linaCLOtide (LINZESS) 72 mcg capsule Take 72 mcg by mouth. doxycycline hyclate (VIBRAMYCIN) 100 mg capsule Take 100 mg by mouth. levETIRAcetam (KEPPRA) 750 mg tablet Take 1 [...] Reactions Lyrica [Pregabalin] Rash Dexamethasone Rash BP 124/74 Pulse 82 Ht 157.5 cm (5' 2 ) Wt 87.1 kg (192 lb 0.3 oz) BMI 35.12 kg/m ASSESSMENT: - 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 aura - chronic cervicalgia - CKD RECOMMENDATIONS: 1. Preventive therapy: -continue Botox. See attached procedure note 2. Follow up in 3 months for Botox with me or WENDY Randa Reilly MD [facility] [place] Patient name and confirmed. Patient states she would like to receive Botox treatment today. 2 vials of Botox A (100 units in each) reconstituted with 2.2 cc of normal saline in each vial. Botox drawn up into four, 1 cc syringes. Each syringe containing 50 units of Botox. Assisted by: Robyn Blanc RN Botox, 2 vials: Lot # [id number] 09/2027 Lot # [id number] 09/[address] Reilly to administer and verified order. documented in this encounter [facility] 07-18-2025 Note HNO ID: [id number] Author: RANDA REILLY MD Service: ? Author Type: Physician Type: Procedures Filed: 07/18/2025 12:52 Note Text: BOTOX PROCEDURE NOTE UNIVERSAL PROTOCOL [...] Reilly MD Botox procedure note Treatment # 5 Consent in EPIC Dilution: 5 units/0.1 ml ( 100 unit vial with 2 cc diluent or 200 unit vial with 4 cc diluent) Diluent: normal saline Indication: Chronic Intractable Migraine Right temporal metal plate with skin irregularity, no shunt Injection Sites Muscle Fixed Site/Fixed Dose Bilat Customer Support Associate 20 U divided in 2 sites Procerus [...] Randa Reilly MD [facility] 07-18-2025 Procedure note BOTOX PROCEDURE NOTE UNIVERSAL PROTOCOL [...] Reilly MD Botox procedure note Treatment # 5 Consent in EPIC Dilution: 5 units/0.1 ml ( 100 unit vial with 2 cc diluent or 200 unit vial with 4 cc diluent) Diluent: normal saline Indication: Chronic Intractable Migraine Right temporal metal plate with skin irregularity, no shunt Injection Sites Muscle Fixed Site/Fixed Dose Bilat Customer Support Associate 20 U divided in 2 sites Procerus [...] Total Units wasted: 0 Randa Reilly MD [facility] 07-18-2025 Procedure note BOTOX PROCEDURE NOTE UNIVERSAL PROTOCOL [...] Reilly MD Botox procedure note Treatment # 5 Consent in EPIC Dilution: 5 units/0.1 ml ( 100 unit vial with 2 cc diluent or 200 unit vial with 4 cc diluent) Diluent: normal saline Indication: Chronic Intractable Migraine Right temporal metal plate with skin irregularity, no shunt Injection Sites Muscle Fixed Site/Fixed Dose Bilat Customer Support Associate 20 U divided in 2 sites Procerus [...] Total Units wasted: 0 Randa Reilly MD [facility] [place] documented in this encounter [facility] 07-18-2025 Note HNO ID: [id number] Author: LON ALEXANDER RN Service: ? Author Type: Registered Nurse Type: Progress Notes Filed: 07/18/2025 12:52 Note Text: Patient name and confirmed. Patient states she would like to receive Botox treatment today. 2 vials of Botox A (100 units in each) reconstituted with 2.2 cc of normal saline in each vial. Botox drawn up into four, 1 cc syringes. Each syringe containing 50 units of Botox. Assisted by: Robyn Blanc RN Botox, 2 vials: Lot # [id number] Exp 09/2027 Lot # [id number] 09/[address] Reilly to administer and verified order. [facility] 07-02-2025 Evaluation note Diagnosis Onset Date Resolution Age-related osteoporosis without current pathological fracture acute June 2:50pm Chronic kidney disease acute Au 2024 2:50pm Gastroesophageal reflux disease with esophagitis without hemorrhage acute July 02, 2025 2:50pm History of pancreatic cancer acute July 02 2:50pm Hypertension acute July 02, 2025 2:50pm Lumbar stenosis with neurogenic claudication acute June 152024 2:50pm Major depression acute June 152024 2:50pm Medicare annual wellness visit, subsequent noneactive July 02, 2 025 2:50pm Screening mammogram for breast cancer noneactive July 02 2:50pm [facility] Work Phone: [phone]) 386-464707-07-2025 Instructions* Patient Instructions* Jyoti Crowley MD - 05/21/2025 9:45 AM [...] called dementia. Dementia is also the general termfor a group of brain disorders that cause [...] remembering the correct word to use. It canalso be more difficult to make decisions. Some [...] of now, no medicines can prevent MCI fromturning into dementia. If you have a lot [...] much intensity you could go. Source : www.IMScouting.Liquor.com Dietary Modifications: Increase the amount of vegetables [...] high glycemic index: instant rice, mashed potatoes, Montenegrin fries bagels, baguettes, vanilla wafers processed cereals (Cheerios, [place]-Puffs, corn/bran flakes, Total, etc.) Avoid foods high in total fat, especially saturated fats and cholesterol Eat foods rich in [place]-3 fatty acids (fish, olive oil, nuts) For More Information on the Mediterranean and the MIND Diet Visit: https://www.deena.nih.gov/health/al riayapoq-eet-gznqoxty/vxng-qb-pz-slam-qkxpy-avoc-jzr-ajgtpuupkw-yrootjosxa-disea se Source : Attensity.Liquor.com Memory Workouts: In some studies, participation in the following activities has been shown to be beneficial in reducing the rate of cognitive decline in adults. There are likely other activities that have this effectthat are not listed. The important point is to keep your mind and body active. Crossword Puzzles, Jigsaw Puzzles, Playing Cards, Checkers Learning Languages Reading (newspapers, magazines, books) Playing and/or learning a Musical Instrument Dancing (ballroom) Computer Games/Apps: [employer] or [employer] phone application Tasks to improve attention/working memory: [...] et al. The Lancet, Volume 396, Issue 44797, [phone] Patient Education Section : Fall Prevention As [...] things in high places so you don't haveto reach or climb. Wear sturdy shoes that [...] include walking, swimming, and Panda Chi (a Romanian martial art that involves slow, gentle movements). [...] hurt. Your doctor can try to figure outwhat caused you to fall, and how likely you are to fall again. They will do an exam and talk to youabout your health problems, medicines, and activities. They can also check how well you walk, move,and balance. Then they can suggest things you can do to lower your risk of falling again. Many older people have a hard time recovering after a fall. Doing things to prevent falling can help you to protect your health and independence. [facility]25 NoteHNO ID: [id number] Author: KALIN GUAMAN OCCA Service: ? Author Type: Exercise Manager Type: Progress Notes Filed: 05/21/2025 08:04 Note Text: Cassi Rodrigez is a 75 year old year old left handed woman Accompanied by: spouse. 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 Vital Signs: There were no vitals taken for this visit.[facility]07-07-2025 History of Present illness Narrative* Kalin Guaman OCCA - 05/21/2025 8:03 AM EDT Cassi Rodrigez is a 75 year old year old left handed woman Accompanied by: spouse. 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 Vital Signs: There were no vitals taken for this visit. * Elian Jones DO - 05/21/2025 8:00 AM EDT Images from the original note were not included. [facility] New Patient Evaluation Cassi Rodrigez : 1950 05/21/2025 8:00 AM Chief Complaint: memory concern I had the pleasure of seeing this 75 year old year old female at the [place] [facility]. The patient is referred [...] has remained seizure-free with occasional auras since surgery.She has continued antiepileptic medications including levetiracetam and zonisamide. 3.) Chronic daily pain related to degenerative spine disease, s/p right L4-L5 foraminotomy, chroniccervicalgia with multiple cervical spine surgeries, and chronic migraine with aura, requiring Botoxinjections and prolonged use of amitriptyline 25-50 mg daily. Previous, discontinued pain medications include Fioricet, Cymbalta, Topamax, and Depakote. In August 2011, she experienced an episode of difficulty speaking, prompting a CT scan of the brain that showed mild cerebral atrophy, considered age- appropriate. In 2014, a pre-surgical MRI brainepilepsy protocol revealed bilateral hippocampal volume loss appropriate for her age. She underwentseveral CT brain scans between 2014 and 2015, with ho findings including postoperative changes from right temporal craniotomy and lobectomy, no acute infarct, evidence of a prior lacunar infarct, bilateral ICAs calcifications, and mild generalized parenchymal atrophy. She was last seen in the [facility] in December 2024, where she endorsed some difficulty withmemory. In January 2025, she was administered the home, online-version of the Brief Assessment of Cognition in Humans (BACH), which suggested probable cognitive impairment (Probability 74.95%). She was advised to follow up at [facility] for further evaluation of her memory concerns. [...] no evidence of agrammatism or significant anomia. Thesesymptoms have remained stable and non-progressive, though she [...] spasticity, increased tone bilaterally. NO cog-wheeling. NO resttremor. NO postural or intention tremor. NO bradykinesia [...] Version 7.1 Total Score: 27/30 Visuospatial/Executive Alternating [place] Making: Patient successfully draws the pattern without [...] recalled (+1) Word 3: Required multiple choice- 'buddhism, school, hospital' (0) Word 4: Required category [...] of hospital, clinic, office), city. Orientation Score: 04/20 Education less than or equal to 12th [...] of chronic pain--likely with central sensitization--and the potentialanticholinergic effects of amitriptyline, we recommend a pain [...] which included preparing to see the patient, xmer-cc-tavo patient care, performing a medically appropriate examination, completing clinical documentation, and on counseling/ eductaing the patient and the family. Jyoti Crowley MD Behavioral Neurology Fellow Patient [...] 05/23/2025 Time: 2:35 PM documented in this [facility]-2025 NoteHNO ID: [id number] Author: ELIAN JONES DO Service: ? Author Type: Physician Type: Progress Notes Filed: 05/23/2025 14:36 Note Text: Regina Herrera [facility] New Patient Evaluation Cassi Rodrigez : 1950 05/21/2025 8:00 AM Chief Complaint: memory concern I had the pleasure of seeing this 75 year old year old female at the [facility]. The patient is referred by Dr. Alejandro [...] She was advised to follow up at [facility] for further evaluation of her memory concerns. [...] medication for their flor (more content not included)...[facility]05-27-2025 NoteHNO ID: [id number] Author: RANDA REILLY MD Service: ? Author [...] Injection Sites Muscle Fixed Site/Fixed Dose Bilat Customer Support Associate 20 U divided in 2 sites Procerus [...] Total Units wasted: 0 Randa Reilly MD [facility]05-27-2025 Procedure note* Randa Reilly MD - 04/10/2025 12:07 PM EDT BOTOX PROCEDURE NOTE UNIVERSAL PROTOCOL [...] procedure note Treatment # 4 Consent in [facility] Dilution: 5 units/0.1 ml ( 100 unit vial with 2 cc diluent or 200 unit vial with 4 cc diluent) Diluent: normal saline Indication: Chronic Intractable Migraine Right temporal metal plate with skin irregularity, no shunt Injection Sites Muscle Fixed Site/Fixed Dose Bilat Customer Support Associate 20 U divided in 2 sites Procerus [...] Total Units wasted: 0 Randa Reilly MD [facility]05-27-2025 Procedure note* Randa Reilly MD - 04/10/2025 12:07 PM EDT BOTOX PROCEDURE NOTE UNIVERSAL PROTOCOL [...] Injection Sites Muscle Fixed Site/Fixed Dose Bilat Customer Support Associate 20 U divided in 2 sites Procerus [...] Total Units wasted: 0 Randa Reilly MD [facility] [place] documented in this encounterTrihealth05-27-2025 NoteHNO ID: [id number] Author: LON ALEXANDER RN Service: ? Author [...] Farfan RN Botox, 2 vials: Lot # [id number] Exp 08/2027 Lot # [id number] Exp 08/[address] Reilly to administer and verified order.[facility] 04-10-2025 History of Present illness Narrative* Lon Alexander RN - 04/10/2025 11:24 AM EDT Patient name and confirmed. Patient states she would like to receive Botox treatment today. 2 vials of Botox A (100 units in each) reconstituted with 2.2 cc of normal saline in each vial. Botox drawn up into four, 1 cc syringes. Each syringe containing 50 units of Botox. Assisted by: Vania Farfan RN Botox, 2 vials: Lot # [id number] Exp 08/2027 Lot # [id number] Exp 08/[address] Reilly to administer and verified order. * Randa Reilly MD - 04/10/2025 11:20 AM EDT PROGRESS NOTE- HEADACHE MEDICINE SERVICE DATE: April 10, 2025 Location: [facility] Participants: patient, and provider HPI: Here for [...] with me or WENDY Randa Reilly MD [facility] documented in this encounterTrihealth05-27-2025 NoteHNO ID: [id number] Author: RANDA REILLY MD Service: ? Author Type: Physician Type: Progress Notes Filed: 04/10/2025 12:19 Note Text: PROGRESS NOTE- HEADACHE MEDICINE SERVICE DATE: April 10, 2025 Location: [facility] Participants: patient, and provider HPI: Here for [...] with me or WENDY Randa Reilly MD [facility]02-21-2025 NoteHNO ID: [id number] Author: DAVINA BRENNAN RN Service: ? Author [...] Hamm RN Botox, 2 vials: Lot # [id number] 02/2027 Lot # [id number] Exp 02/2027 Botox handed to Svitlana Mayfield CNP to administer and verified order[id number] History of Present illness Narrative* Davina Brennan RN - 01/05/2025 11:58 AM EST Patient name and confirmed. Patient states she would like to receive Botox treatment today. 2 vials of Botox A (100 units in each) reconstituted with 2.2 cc of normal saline in each vial. Botox drawn up into four, 1 cc syringes. Each syringe containing 50 units of Botox. Assisted by: Evonne Hamm RN Botox, 2 vials: Lot # [id number] Exp 02/2027 Lot # [id number] Exp 02/2027 Botox handed to Svitlana Mayfield CNP to administer and verified order. * Svitlana Mayfield APRN.NIC - 01/05/2025 11:42 AM EST Follow-Up Onabotulinum Toxin A (BotoxTM) for Migraine [...] for migraine Informed Consent Consent Obtained: Written [place] Protocol A moment to CARE was completed [...] applicable Written Consent Obtained: Written LOT #: [id number] Expiration Date: Month: Year: 2026 Second vial: LOT #: [id number] Expiration Date: Month: Year: 2026 Injection Sites Left (Units) Left (Sites) Right (Units) Right (Sites) TOTAL (Units) Customer Support Associate 5 1 5 1 10 Procerus Units: [...] which included preparing to see the patient, zjlo-ri-dkof patient care, completing clinical documentation, obtaining and/or reviewing separately obtained history, counseling and educating the patient/family/caregiver, and ordering medications, tests, or procedures. Svitlana Mayfield APRN.NIC documented in this encounterTrihealth02-21-2025 Instructions* Patient Instructions* Svitlana Mayfield APRN.CNP - 01/05/2025 11:47 AM EST AFTER VISIT [...] be some swelling. Alternating ice and heat every3-5 times per day may help decrease this, [...] Botox Savings Program and see if you qualifyfor reimbursement. Return in 3 months for your next Botox Injection documented in this encounterTrihealth02-21-2025 NoteHNO ID: [id number] Author: SVITLANA MAYFIELD APRN.CNP Service: ? Author [...] for migraine Informed Consent Consent Obtained: Written [place] Protocol A moment to CARE was completed [...] applicable Written Consent Obtained: Written LOT #: [id number] Expiration Date: Month: 4 Year: 2026 Second vial: LOT #: [id number] Expiration Date: Month: 4 Year: 2026 Injection Sites Left (Units) Left (Sites) Right (Units) Right (Sites) TOTAL (Units) Customer Support Associate 5 1 5 1 10 Procerus Units: [...] no evidence of procedural (more content not included)...[facility] [id number] History of Present illness Narrative* Alejandro Villar MD, PhD - 01/04/2025 2:00 PM EST [facility] Patient Name: Cassi Rodrigez Date of : 1950 ESTABLISHED EPILEPSY CLINIC NOTE 01/04/2025 2:00 PM Reason for Visit: Follow Up Clinical Summary: Ms. Rodrigez is a 74 year old right-handed female seen in [facility]. There is no one accompanying [...] - Seizure risk factors: Brain Tumor No WAREHOUSE CLERK Infections No Developmental Delay No Family history [...] - 1.02 mg/dL 1.60 High TBH EGFR-AF DJIBOUTIAN >=60 38 Low TBH EGFR-NON AF DJIBOUTIAN >=60 32 Low BUN CREATININE RATIO 15.0 [...] Ocular Disease Other SOCIAL HISTORY: -Lives in [place], [place] -Patient lives alone? -Vocation: -Education: -Cigarette, [...] as directed could worsen seizures and can bedangerous. I discussed the risks, benefits and alternatives of the medical plan with the patient. Questions were answered. The patient agreed with the plan as discussed. FOLLOW-UP: Return in about 1 year (around 01/04/2026). I spent a total of 20 minutes on the date of the service which included: preparing to see the patient yrch-mz-qujk patient care completing clinical documentation obtaining and/or reviewing separately obtained history counseling and educating the patient/family/caregiver ordering medications, tests, or procedures independently interpreting results (not separately reported) communicating results to the patient/family/caregiver Alejandro Villar MD, PhD cc: Primary Care Physician: Broderick Howard DO [address] [place] [address] Referring: Patient: Ms. Cassi Rodrigez [phone] [address] documented in this encounterTrihealth02-20-2025 NoteHNO ID: [id number] Author: ALEJANDRO VILLAR MD, PhD Service: ? Author Type: Physician Type: Progress Notes Filed: 01/04/2025 14:17 Note Text: [facility] Patient Name: Cassi Rodrigez Date of : 1950 ESTABLISHED EPILEPSY CLINIC NOTE 01/04/2025 2:00 PM Reason for Visit: Follow Up Clinical Summary: Ms. Rodrigez is a 74 year old right-handed female seen in [facility]. There is no one accompanying [...] 1 [Negative Anxiety Screen] - - - FATNA 7 SCORE - - - - QOLIE-10 [...] - Seizure risk factors: Brain Tumor No WAREHOUSE CLERK Infections No Developmental Delay No Family history [...] mg/dL 103 BLOOD UREA (more content not included)...[facility] HospitalWasifyfv04-16-8149 History of Present illness Narrative* Aftab Dey, DO - 12/13/2024 3:15 PM EST Images from the original note were not included. Cassi Rodrigez is a 74 y.o. female presents for PCP requested pt. be seen again for blisters on her abdomen HPI: HPI Cassi was referred back for 2 blisters that developed on the RLQ abdominal wall. She denies any newinjury or burn to the area. OBJECTIVE: Physical Exam Abdominal: Comments: Right lower quad she has 2 superficial fluid/blood filled blisters on the abdominal wall.The overall ecchymosis is improved, and she has [...] DSD until it heals documented in this encounterFitzgibbon HospitalIafniqabwx07-13-2412 Telephone encounter Note* Telephone Encounter - Alexi Colindres PA-C - 12/11/2024 1:30 PM EST The following approved medication requests have been transmitted electronically. Requested Prescriptions Signed Prescriptions Disp Refills zonisamide (ZONEGRAN) 100 mg capsule 270 capsule 1 Sig: Take 3 capsules by mouth daily at bedtime. Authorizing Provider: ALEXI COLINDRES PA-C [facility]01-27-2025 Miscellaneous Notes* Telephone Encounter - Alexi Colindres PA-C - 12/11/2024 1:30 PM EST The following approved medication requests have been transmitted electronically. Requested Prescriptions Signed Prescriptions Disp Refills zonisamide (ZONEGRAN) 100 mg capsule 270 capsule 1 Sig: Take 3 capsules by mouth daily at bedtime. Authorizing Provider: ALEXI COLINDRES PA-C * Telephone Encounter - Maranda Moreno - 12/11/2024 10:27 AM EST Prescription Refill: Requested by: patient Please E-Scribe Caller Contact Number: [phone] (home) Pharmacy Name: [facility] Pharmacy Number: [phone] Generic/ brand: generic 30 or 90 day supply requested: 90 Last appointment: 06/29/24 Next Appointment: 01/04/[address] guido Rodrigez [id number] [facility] [address] documented in this encounterTrihealth01-27-2025 Telephone encounter Note * Telephone Encounter - Maranda Moreno - 12/11/2024 10:27 AM EST Prescription Refill: Requested by: patient Please E-Scribe Caller Contact Number: [phone] (home) Pharmacy Name: [facility] Pharmacy Number: [phone] Generic/ brand: generic 30 or 90 day supply requested: 90 Last appointment: 06/29/24 Next Appointment: 01/04/[address] guido Rodrigez [id number] [facility] [address] [facility]01-15-2025 History of Present illness Narrative* Aftab Dey, - 11/29/2024 2:00 PM EST Images from the original note were not [...] was told by the ER to hold themedication for 5 days. SUBJECTIVE: MEDICATIONS: ALLERGIES Current Outpatient Medications Medication Instructions amitriptyline (Elavil) 10 MG tablet Daily at bedtime amLODIPine (Norvasc) 5 MG tablet Daily carvedilol (Coreg) 12.5 MG tablet Twice daily doxycycline (VIBRAMYCIN) 100 mg, 2 times daily Enoxaparin Sodium 100 MG/ML solution prefilled syringe INJECT 90 MG SUBCUTANEOUSLY TWICE A DAY DIRECTED ergocalciferol (Vitamin D2) 1.25 MG (22729 UT) capsule TAKE 1 CAPSULE BY MOUTH [...] 1 TABLET IN MOUTH EVERY 6 HOURS ASNEEDED FOR NAUSEA traMADol (Ultram) 50 MG tablet [...] X3 ROTATOR CUFF REPAIR Left 2021 LT CHITO-DR VELASQUEZ WHIPPRAMY PROCEDURE W/ LAPAROSCOPY 2010 FOR [...] is not expanding or infected there is noneed to operate at this time. If she should develop signs of infection surgery would be indicated. She understood and was okay with observation. I suggested using a heating pad over the area. I'll see her PRN documented in this [facility]01-10-2025 Radiology Diagnostic [facility]OH[facility] [address] CT Scan Report Signed Patient: Cassi Rodrigez MR#: [id number] : 1950 Acct:[id number] Age/Sex: 74 / F ADM Date: 5 Loc: ER Room: Type: [facility] ER Attending Dr: Copies to: Kristel [...] to patient size, or use of iterative reconstructiontechnique. COMPARISON: None. FINDINGS: Lower Chest: There is [...] aorta and its branches. There is an IVCfilter. Retroperitoneum: Within normal limits. Abdominal Wall: There is a heterogeneous collection in the anterior abdominal wall to the right of midline near the pelvis measuring 12.3 x 4.0 x 6.5 cm in greatest dimension. This appears to represent a heterogeneous hematoma. Bones: Postoperative changes are noted at L5-S1. Degenerative changes are notedin the thoracolumbarspine. CT/CT abdomen pelvis wo con IMPRESSION: There is a heterogeneous collection in the anterior abdominal wall to the right of midline near thepelvis measuring 12.3 x 4.0 x 6.5 cm [...] Arnel Simon M.D.11/24/2024 3:48 PM Dictation Location: [facility]--17 Transcribed By: [facility] 11/24/24 154 Dictated By: Arnel Simon II, MD 11/24/24 153 Signed By: 11/24/24 1548 [facility] Work Phone: 1(962) 704-504301-10-2025 Evaluation note* Diagnosis Onset Date Resolution Status Admit Date Adverse effect of anticoagulant antagonists, vitamin k and other coagulants acute J anuary 2024 10:35am Cellulitis acute November 24, 2024 10:35am Abscess of abdominal wall deleted November 24, 2024 10:35am Adverse effect of anticoagulant antagonists, vitamin k and other coagulants acute J anuary 2024 10:54am Cellulitis acute November 28, 2024 10:54am Abdominal hematoma inactive Januar y 2024 10:54am Adverse effect of anticoagulant antagonists, vitamin k and other coagulants acute J anuary 2024 9:51am Blister (nonthermal) of abdominal wall, initial encounter acute December 08 9:51am Hematoma of abdominal wall acute December 08, 2024 9:51am Bilateral lower extremity edema acute February 21, 2025 1:49pm History of DVT (deep vein thrombosis) acute February 21, 2025 1:49pm [facility] Work Phone: 1(670) 263-222301-10-2025 Evaluation note* Diagnosis Onset Date Resolution Status Admit Date Adverse effect of anticoagul ant antagonists, vitamin k and other coagulants acute November 24 10:35am Cellulitis acute November 24, 2024 10:35am Abscess of abdominal wall deleted November 24, 2024 10:35am Adverse effect of anticoagul ant antagonists, vitamin k and other coagulants acute November 28 10:54am Cellulitis acute November 28, 2024 10:54am Abdominal hematoma inactive Jemaluar y 2024 10:54am Adverse effect of anticoagul ant [...] 1:49pm Anemia of renal disease acute A pril 2024 10:30am Bilateral lower extremity edema acut e February 22, 2025 10:30am CKD (chronic kidney disease) stage 4, GFR 15-29 ml/min acute February 22, 2025 10:30am Hypertensive chronic kidney disease with stage 1 through stage 4 chronic ki acute February 22, 025 10:30am Secondary hyperparathyroidism acute February 22, 2025 10:30am [facility] Work Phone: 1(561) 168-866712-30-2024 NoteProgress Note-Physician Patient: CASSI RODRIGEZ Age: 74 [...] to Ambulatory Surgery Unit, and To home ).[facility] HospitalComment on above:Result Comment: Electronically Signed By: Sunny Ramirez Jr., DO.mukesh\Date and Time Signed: 11/13/24 07:01 [id number] NoteDischarge Summary Patient: CASSI RODRIGEZ Age: 74 years Sex: Female : 1950 Associated Diagnoses: None Author: Shashi De Souza MD Discharge Information Discharge Summary Information: Admit Date/Time: 11/02/24 10:13 Discharge Date/Time: 11/03/24 18:13 Admitting Physician: Shashi De Souza MD Referring Physician for Admission: Rhiew MD, Shashi B Consulting Physicians: Dar NUNEZ MD Admitting Diagnoses: Discharge Diagnoses: Essential (primary) hypertension Presence of cardiac pacemaker Personal history of other venous thrombosis and embolism nursing home (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 of anticoagulants Epilepsy, unspecified, not [...] Heart Rate Monitored L 58 bpm (NOV 03) SBP 113 mmHg (NOV 03:) DBP 68 mmHg (NOV 03)[facility] HospitalComment on above:Result Comment: Electronically Signed By: Ap PAUL, Shashi Rae.mukesh\Date and Time Signed: 11/03/24 18:13 [id number] Hospital Discharge instructions Patient Education 11/03/2024 14:55:59 [...] sitting in a recliner chair. Only take nxlp-isy-djlryow or prescription medicines for pain, discomfort, or [...] 10/05/2005 Document Revised: 01/23/2013 Document Reviewed: 11/01/2006 ExitCare Patient Information 2013 Riidr. Follow Up Care 10/19/2024 10:52:05 With:BRODERICK HOWARD Address: [facility] [place] [address] Business (1) When: Unknown Comments:No need to see PCP at this time unless symptoms worsen. With:Shashi De Souza Address: [address], [address] [place] [phone] Business (1) When: Unknown Comments:f/u3wks ok shower and remove dressing smvzj55ige no lift>5lbs keep incis dry clean. restart coumadin 3 days after surgery. 11-05-24Wednesday. [facility] 12-20-2024 NotePatient Education - Text Lumbar Laminectomy [...] in a recliner chair. ? Only take dxhm-djo-mwxoqpw or prescription medicines for pain, discomfort, or [...] Document Reviewed: 11/01/2006 ExitCare? Patient Information ?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 Lumbar stenosis (M48.061: Spinal stenosis, [...] hold for neuro spine surgery, patient has utblh-klf-ycmv compression hose and SCDs Enoxaparin 40 mg daily per surgeon for now 5. 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 Extracted from: Title:Consult Note Author:Santosh LUCERO, Júnior Baltazar Date:11/02/24 1. Lumbar stenosis (M48.061: Spinal stenosis, [...] hold for neuro spine surgery, patient has vjbys-lhm-xtvh compression hose and SCDs Enoxaparin 40 mg daily per surgeon for now 5. 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 Anesthetic Preoperative Plan: Anesthesia General. Diagnostic Tests Pending * Calcium Level Ionized 11/03/24 [facility] 12-20-2024 NoteProgress Note-Physician Basic Information 74-year-old female with [...] hold for neuro spine surgery, patient has hrsqg-mds-tmlg compression hose and SCDs Enoxaparin 40 mg daily per surgeon for now 5. 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 HospitalComment on above: Result Comment: Electronically Signed By: Katarzyna Frost CNP\.br\Date and Time Signed: 11/03/24 11:08 EST\.br\Electronically Co-Signed By: Dar NUNEZ MD\.br\Date and Time Co-Signed: 11/03/24 12:02 [id number] Note Interdisciplinary Note - PT PT Evaluation done this date. Pt. with on AM-PAC this date. She is safe and independent with all functional activities at this time. No further PT needs.[facility]12-[facility]-2024 NoteConsultation Note Reason for Consultation Medical [...] hold for neuro spine surgery, patient has scgak-jhe-ctgr compression hose and SCDs Enoxaparin 40 mg daily per surgeon for now 5. Anticoagulated (Z79.01: nursing home (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 of anticoagulants) Warfarin prior to [...] tab(s), Oral, Daily carvedil (more content not included)...[facility] HospitalComment on above:Result Comment: Electronically Signed By: Katarzyna Frost CNP\.br\Date and Time Signed: 11/02/24 18:33 EST\.br\Electronically Co-Signed By: Dar NUNEZ MD\.br\Date and Time Co-Signed: 11/02/24 18:54 [id number] NoteProgress Note-Nurse 1615- Pacemaker to right chest interrogated in PACU at this time with Medtronic device. Device stated it transmitted properly.[facility] 11-02-2024 NoteProgress Note-Physician Patient: CASSI RODRIGEZ Age: 74 [...] All Problems Acute asthma / SNOMED CT 1117779498 / Confirmed Bradycardia / SNOMED CT 19141378 / Confirmed Cardiac pacemaker / SNOMED CT 8791363250 / Confirmed Epilepsy / SNOMED CT 738683780 / Confirmed High blood pressure / SNOMED CT 7828915148 / Confirmed History of DVT of lower extremity / SNOMED CT 5757009964 / Confirmed Migraines / SNOMED CT 80908647 / Confirmed Obstructive sleep apnea / SNOMED CT 735878441 / Confirmed Pancreatic cancer / SNOMED CT 154775905 / Confirmed Presence of IVC filter / SNOMED CT 2750298265 / Confirmed, Active Problems (10) Acute asthma Bradycardia Cardiac pacemaker Epilepsy High blood pressure History of DVT of lower extremity Migraines Obstructive sleep apnea Pancreatic cancer Presence of IVC filter , anesthesia summary- obesity, HTN, godfrey/PM, SHELL, mild asthma, remote treatment for pancreatic cancer, controlled siezures, RI, controlld GERD, hx DVT s/p IVCF on chronic anticoagulation, c-spine dz Histori (more content not included)...[facility] HospitalComment on above:Result Comment: Electronically Signed By: Thomas PAUL, Jaun Reese\.br\Date and Time Signed: 11/02/24 13:45 [id number] Evaluation note* Diagnosis Onset Date Resolution Status Admit Date Chronic kidney disease acute 2023 8:49am Gastroesophageal reflux disease with esophagitis without hemorrhage acute October 8:49am History of DVT (deep vein thrombosis) acute October 27 8:49am Hypertension acute October 8:49am Lumbar stenosis with neurogenic claudication acute October 27, 2024 8:49am Major depression acute October 27, 2024 8:49am Preop exam for internal medicine noneactive October 27 8:49am Adverse effect of anticoagulant antagonists, vitamin k and other coagulants acute J anuary 2024 1:36pm Bruising at injection site acute November 17, 2024 1:36pm Cellulitis acute November 17 1:36pm Adverse effect of anticoagulant antagonists, vitamin [...] 2024 9:51am [facility] Work Phone: 1([phone]) 886-103510-22-2024 NoteHNO ID: [id number] Author: RANDA REILLY MD Service: ? Author [...] Injection Sites Muscle Fixed Site/Fixed Dose Bilat Customer Support Associate 20 U divided in 2 sites Procerus [...] Total Units wasted: 0 Randa Reilly MD [facility]10-22-2024 Procedure note* Randa Reilly MD - [...] Injection Sites Muscle Fixed Site/Fixed Dose Bilat Customer Support Associate 20 U divided in 2 sites Procerus [...] Total Units wasted: 0 Randa Reilly MD [facility]10-22-2024 Procedure note* Randa Reilly MD - 09/05/2024 [...] Injection Sites Muscle Fixed Site/Fixed Dose Bilat Customer Support Associate 20 U divided in 2 sites Procerus [...] Total Units wasted: 0 Randa Reilly MD [facility] documented in this encounterTrihealth10-22-2024 NoteHNO ID: [id number] Author: RANDA REILLY MD Service: ? Author Type: Physician Type: Progress Notes Filed: 09/05/2024 13:54 Note Text: PROGRESS NOTE- [facility] SERV[facility] DATE: September 05, 2024 Location: [facility] Participants: patient, and provider HPI: Here for [...] 3.Referral to sleep medicine Randa Reilly MD [facility]10-22-2024 History of Present illness Narrative* Randa Reilly MD - 09/05/2024 1:49 PM EDT PROGRESS NOTE- [facility] SERVICE DATE: September 05, 2024 Location: [facility] Participants: patient, and provider [...] 3.Referral to sleep medicine Randa Reilly MD [facility] [place] documented in this encounterTrihealth10-22-2024 Nurse Note* Davina Brennan RN - 09/05/2024 [...] Jewell RN Botox, 2 vials: Lot # [id number] Exp 10/2026 Lot # [id number] Exp 10/[address] Reilly to administer and verified order. [facility]10-22-2024 Nurse Note* Davina Brennan RN - 09/05/2024 [...] by: Lon Adamsox, 2 vials: Lot # [id number] Exp 10/2026 Lot # [id number] Exp 10/[address] Reilly to administer and verified order. documented in this encounterTrihealth10-17-2024 NoteHNO ID: [id number] Author: KITTY VALENTE MD Service: ? Author Type: Physician Type: Progress Notes Filed: 09/02/2024 00:42 Note Text: [facility] [place] [facility] Department of Cardiovascular Medicine SECTION OF CARDIAC PACING and ELECTROPHYSIOLOGY OUTPATIENT VISIT DATE NASRIN July 23, 2022 August 31, 2024 OUTPATIENT VISIT TYPE ESTABLISHED PRIMARY CARE PHYSICIAN: Broderick Howard MD ([facility]) [address] [place] [address] CHIEF COMPLAINT: Pacemaker management HISTORY OF PRESENT [...] antiepileptic Rx - well (more content not included)...[facility] 08-31-2024 History of Present illness Narrative* Kitty Valente MD - 08/31/2024 10:04 AM EDT Images from the original note were not included. [facility] [place] [facility] Department of Cardiovascular Medicine SECTION OF CARDIAC PACING and ELECTROPHYSIOLOGY OUTPATIENT VISIT DATE NASRIN July 23, 2022 August 31, 2024 OUTPATIENT VISIT TYPE ESTABLISHED PRIMARY CARE PHYSICIAN: Broderick Howard MD ([facility]) [address] [place] [address] CHIEF COMPLAINT: Pacemaker management HISTORY OF PRESENT [...] of Cardiovascular Medicine [facility] [place] [facility] Office Pager [phone] August 31, 2024 10:18 AM documented in this encounterTrihealth10-16-2024 Evaluation note* Diagnosis Onset Date Resolution Status [...] 2024 9:09am Chronic kidney disease acute De cember 2023 8:49am Gastroesophageal reflux dise ase with [...] 17, 2024 1:36pm Cellulitis acute November 17, 1:36pm Abscess of abdominal wall acute November 24, 2024 10:35am Adverse effect of anticoagul ant antagonists, vitamin k and other coagulants acute November 24 10:35am Cellulitis acute November 24, 2024 10:35am Abdominal hematoma acute 2024 10:54am Adverse effect of anticoagul ant antagonists, vitamin k and other coagulants acute November 28 10:54am Cellulitis acute November 28, 2024 10:54am [facility] Work Phone: 1(304) 333-749010-15-2024 Evaluation note* Diagnosis Onset Date Resolution Status [...] with esophagitis without hemorrhage acute October 27 024 8:49am History of DVT (deep vein thrombosis) acute October 27 8:49am Hypertension acute October 8:49am Lumbar stenosis with neuroge ravindra claudication acute October 27 8:49am Major depression acute October 27, 2024 8:49am Preop exam for internal medicine non eactive October 27, 2024 8:49am [facility] Work Phone: 1(313) 938-402510-15-2024 Evaluation note* Diagnosis Onset Date Resolution Status [...] with esophagitis without hemorrhage acute October 27 024 8:49am History of DVT (deep vein thrombosis) acute October 27 024 8:49am Hypertension acute October 8:49am Lumbar stenosis with neuroge ravindra claudication acute October 27, 2 024 8:49am Major depression acute October 27, 2024 8:49am Preop exam for internal medicine non eactive October 27, 2024 8:49am Adverse effect of anticoagul ant antagonists, vitamin k and other coagulants acute November 17 1:36pm Bruising at injection site acute November 17, 2024 1:36pm Cellulitis acute November 17 025 1:36pm Abscess of abdominal wall acute November 24, 2024 10:35am Adverse effect of anticoagul ant antagonists, vitamin k and other coagulants acute November 24 10:35am Cellulitis acute November 24, 2024 10:35am [facility] Work Phone: 1(950) 546-549708-15-2024 History of Present illness Narrative* Alejandro Villar MD, PhD - 06/29/2024 2:41 PM EDT [facility] Patient Name: Cassi Rodrigez Date of : 1950 ESTABLISHED EPILEPSY CLINIC NOTE 06/29/2024 1:00 PM Reason for Visit: Epilepsy Clinical Summary: Ms. Rodrigez is a 74 year old female seen in [facility]. 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 CLERK Infections Unanswered Developmental Delay Unanswered Family history [...] - 1.02 mg/dL 1.60 High TBH EGFR-AF DJIBOUTIAN >=60 38 Low TBH EGFR-NON AF DJIBOUTIAN >=60 32 Low BUN CREATININE RATIO 15.0 [...] Ocular Disease Other SOCIAL HISTORY: -Lives in [place], [place] Review of Systems all other review [...] which included: preparing to see the patient [id number] patient care completing clinical documentation obtaining and/or reviewing separately obtained history performing a medically appropriate examination Alejandro Villar MD, PhD cc: Primary Care Physician: Broderick Howard, DO [address] [facility] [id number] Referring: Patient: Ms. Cassi Rodrigez [id number] [place] [id number] documented in this encounterTrihealth07-09-2024 Nurse Note* Tomasa Farfan RN - 05/23/2024 [...] Lon VARELA Botox, 2 vials: Lot # [id number] Exp Lot # [id number] Exp Botox handed to Dr. Reilly to administer and verified order. [facility]-09-[facility] Nurse Note* Tomasa Farfan RN - 05/23/2024 11:54 AM EDT Patient name and confirmed. Patient states she would like to receive Botox treatment today. 2 vials of Botox A (100 units in each) reconstituted with 2.2 cc of normal saline in each vial. Botox drawn up into four, 1 cc syringes. Each syringe containing 50 units of Botox. Assisted by: Lon RN Botox, 2 vials: Lot # [id number] Exp Lot # [id number] Exp Botox handed to Dr. Reilly to administer and verified order. documented in this encounterTrihealth07-09-2024 Procedure note* Randa Reilly MD - 05/23/2024 [...] Injection Sites Muscle Fixed Site/Fixed Dose Bilat Customer Support Associate 20 U divided in 2 sites Procerus [...] Total Units wasted: 0 Randa Reilly MD [facility] [place] [facility] Procedure note* Randa Reilly MD - 05/23/2024 [...] Injection Sites Muscle Fixed Site/Fixed Dose Bilat Customer Support Associate 20 U divided in 2 sites Procerus [...] Total Units wasted: 0 Randa Reilly MD [facility] [place] documented in this encounterTrihealth05-01-2024 NoteDUAL CHAMBER PACEMAKER REMOTE EVALUATION: PRESENTING EGM: [...] under CARDIAC DATA AND REPORT, Scanned Documents section.[id number] History of Present illness Narrative* Randa Reilly MD - 03/07/2024 9:30 AM EDT PROGRESS NOTE- HEADACHE MEDICINE SERVICE DATE: March 07, 2024 Location: [facility] neurological [place] Participants: patient, and provider HPI: Here for [...] I spent at least 50% of the [id number]-co-lzjk time in counseling, explanation of diagnosis, planning of further management, and answering all questions. Randa Reilly MD [facility] [place] documented in this encounterTrihealth02-08-2024 Instructions* Patient Instructions* Lauren Otero APRN.CNP - 12/23/2023 9:42 AM EST To schedule with headache clinic (can schedule at [facility]): [phone] documented in this encounterTrihealth02-08-2024 History of Present illness Narrative* Alejandro Villar MD, PhD - 12/23/2023 9:00 AM EST [facility] CHIEF COMPLAINT: Patient presents with: [...] She was referred to the headacheclinic at [facility] in the past but at [...] There is no focal weakness. PREVIOUS EVALUATIONS: [facility], 05/2015: Right Temporal Epilepsy Seizures: Aura [...] The MRI scan was reviewed by Dr. Slaomón May who felt there was global volume [...] know if she decides to pursue at [facility] - she needs for spine doctor, plans to talk to PCP first but will let us know if she needs referralto someone here at [facility] - ENT referral as needed for change [...] as answering the patient's questions. Attending Note: Oh findings confirmed. Patient examined. Discussed with the nurse practitioner and the patient. Plan as outlined. Alejandro Villar MD, PhD in collaboration with Lauren Otero APRN.NIC December 23, 2023 documented in this encounterTrihealth01-10-2024 Evaluation note* Encounter Date Diagnosis Assessment Notes Treatment Notes Treatment Clinical Notes Nov, Acute non-recurrent maxillary sinusitis (ICD-10 - J01.00) Instructed to use Robitussin or Mucinex for cough, saline or Flonase NS for congestion, Tylenol for pain and fever. Nov, Primary hypertension (ICD-10 - I10) Increased risk for more serious, prolonged illness. [employer] Other [id number] Miscellaneous Notes* Telephone Encounter - Mirian Bell APRN.CNP - 09/13/2023 1:53 PM EDT Thank you reviewed scan documents. Mirian Bell APRN.NIC * Telephone Encounter - Brenda Hodges RN - 09/13/2023 7:58 AM EDT Received medical records from [facility] and scanned into chart for review. documented in this encounterTrihealth10-30-2023 Miscellaneous Notes* Telephone Encounter - Daniel Macias [...] Please E-Scribe Caller Contact Number: Pharmacy Name: [facility] Pharmacy Number: [phone] Generic/ brand: 30 or 90 day supply requested: 90 Last appointment: 09/10/22 Next Appointment: 12/09/[address] Villar documented in this encounterTrihealth10-25-2023 Instructions* Patient Instructions* Mirian Bell APRN.CNP - 09/08/2023 3:21 PM EDT Please schedule for device check & in one year Please have patient sign release of medical labs from [facility] had labs last month documented in this encounterTrihealth10-25-2023 History of Present illness Narrative* Mirian Bell APRN.CNP - 09/08/2023 2:30 PM EDT Images from the original note were not included. [facility] [place] [facility] Department of Cardiovascular Medicine SECTION OF CARDIAC PACING and ELECTROPHYSIOLOGY OUTPATIENT VISIT DATE September 08, 2023 OUTPATIENT VISIT TYPE ESTABLISHED PRIMARY CARE PHYSICIAN: Broderick Howard (Zack) [address] [place] [address] CHIEF COMPLAINT: follow up device management HISTORY OF PRESENT ILLNESS: Ms. Rodrigez is a 73 year old female who presents today for followed by Dr. Walters for h/o symptomatic sinus bradycardia (presyncope, decrease [...] 09-08-2023 Dual chambered pacer EVALUATION PRESENTS FOR: CALL CENTER OPERATIONS MANAGER visit PRESENTING EGM: AP/VS UNDERLYING RHYTHM: BATTERY [...] 4. Annual labs, I will obtain from [facility] she had last month Follow up appointment: Dr. Walters & device check in one year I spent 25 to 30 minutes in the visit, with more than 50% of the total kcve-yt-ionp time of the visit in counseling / coordination of care. CONTACT INFORMATION: Mirian Bell APRN.CALL CENTER OPERATIONS MANAGER, 09/08/23 [facility] Second Floor [address] [place] [address] documented in this encounterTrihealth10-11-2023 Evaluation note* Encounter Date Diagnosis Assessment Notes Treatment Notes Treatment Clinical Notes Aug, Lumbar stenosis with neurogenic claudication (ICD-10 - M48.062) [employer] Other 10-02-2023 Evaluation note* Encounter Date Diagnosis Assessment Notes Treatment Notes Treatment Clinical Notes Aug, Lumbar stenosis with neurogenic claudication (ICD-10 - M48.062) [employer] Other 09-28-2023 Evaluation note* Encounter Date Diagnosis Assessment Notes Treatment Notes Treatment Clinical Notes Jul, Lumbar stenosis with neurogenic claudication (ICD-10 - M48.062) [employer] Other 09-20-2023 Progress note Author Niki Weeks [facility] August 04, 2023 7:57am Note Date/Time August 04, 2023 7:57am [facility] [address] [place] [address] Neurosurgery Progress Note Signed Patient: Cassi Rodrigez MR#: [id number] : 1950 Acct:[id number] Age/Sex: 73 / F Adm Date: 3 Loc: Room: [address] [place] [address] Type: [facility] Attending Dr: Niki Weeks MD Copies to: [...] % (Auto) 91.6, Lymph % (Auto) 4.4, [place] % (Auto) 4.0, Eos % (Auto) 0.0, Baso % (Auto) 0.0, Nucleat RBC Rel Count 0.1, Neut # (Auto) 10.4 H, Lymph #(Auto) 0.5 L, [place] # (Auto) 0.5, Eos # (Auto) 0.0, [...] <Electronically signed by Niki Weeks MD> 08/04/23 0752 [facility] Work Phone: 1(532) 457-141908-23-2023 Evaluation note* Encounter Date Diagnosis Assessment Notes Treatment Notes Treatment Clinical Notes Jun, Lumbar stenosis with neurogenic claudication (ICD-10 - M48.062) [employer] Other 06-22-2023 Evaluation note* Encounter Date Diagnosis [...] will continue with this therapy without change. [employer] Other 06-19-2023 Evaluation note* Encounter Date Diagnosis Assessment Notes Treatment Notes Treatment Clinical Notes Apr, Lumbosacral spondylosis with radiculopathy (ICD-10 - M47.27) [employer] Other 06-19-2023 Evaluation note* Encounter Date Diagnosis [...] until MRI completed MRI being rescheduled [place] [facility] due to PM Apr, Stage 3b chronic kidney disease (ICD-10 - N18.32) The patient is instructed on adequate control of hypertension and diabetes, if appropriate. They are also educated on the associated risks of NSAIDs and PPI use with kidney disease. They were instructed on adequate fluid balance and to avoid dehydration. Apr, History of lumbar fusion (ICD-10 - Z98.1) [employer] Other 05-15-2023 Evaluation note* Encounter Date Diagnosis Assessment Notes Treatment Notes Treatment Clinical Notes March, Lumbosacral spondylosis with radiculopathy (ICD-10 - M47.27) [employer] Other 05-11-2023 Evaluation note* Encounter Date Diagnosis [...] or drinking prior to bedtime. Weight loss. 11 May, 2023 Obstructive sleep apnea (ICD-10 - G47.33) This [...] Other Stable w/o breakthrough Sz. 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 CLERK surgery Continue surveillance w/ [employer] Other 2023 Evaluation note* Encounter Date Diagnosis Assessment Notes Treatment Notes Treatment Clinical Notes Jan, Nausea (ICD-10 - R11.0) [employer] Other 02-23-2023 Evaluation note* Encounter Date Diagnosis Assessment Notes Treatment Notes Treatment Clinical Notes Dec, Nausea (ICD-10 - R11.0) Increase Amitriptyline to 15mg at bedtime Dec, Constipation (ICD-10 - K59.00) Start Linzess 72mcg daily Pt to call if symptoms worsen or return Follow up in 4 months [employer] Other 01-11-2023 Evaluation note* Encounter Date Diagnosis [...] adequate fluid balance and to avoid dehydration. 11 Jemal, 2023 Obstructive sleep apnea (ICD-10 - G47.33) This [...] to trial Amitiza and discuss w/ GI [employer] Other 10-27-2022 History of Present illness Narrative* Lauren Otero APRN.CALL CENTER OPERATIONS MANAGER - 09/10/2022 1:53 PM EDT [facility] CHIEF COMPLAINT: Patient presents with: [...] She was referred to the headacheclinic at [facility] in the past but at [...] There is no focal weakness. PREVIOUS EVALUATIONS: [facility], 05/2015: Right Temporal Epilepsy Seizures: Aura [...] by Dr. Alejandro Villar. documented in this encounterTrihealth09-08-2022 History of Present illness Narrative* Kitty Millard MD - 07/23/2022 10:00 AM EDT Images from the original note were not included. [facility] [place] [facility] Department of Cardiovascular Medicine SECTION OF CARDIAC PACING and ELECTROPHYSIOLOGY OUTPATIENT VISIT DATE July 23, 2022 OUTPATIENT VISIT TYPE ESTABLISHED PRIMARY CARE PHYSICIAN: Broderick Howard MD ([facility]) [facility] [place] [address] CHIEF COMPLAINT: Pacemaker management HISTORY OF PRESENT [...] Lymph 1.00 - 4.00 k/uL 0.93 (L) [place]% % 7.7 Abs [place] <0.87 k/uL 0.32 Eosin% % 5.3 Abs [...] Kitty Millard MD Electrophysiology documented in this encounterTrihealth02-22-2022 Evaluation note* Encounter Date Diagnosis Assessment Notes Treatment Notes Treatment Clinical Notes Dec, Nausea (ICD-10 - R11.0) PATIENT STATES THAT THIS HAS IMPROVED. PATIENT TO CONTINUE ON THE AMITRIPTYLINE DOSE AT THIS TIME. [employer] Other 03-12-2015 History of Past illness Narrative* Problem Noted Date Resolved Date Seizure 01/24/2015 06/21/2018 documented as of this encounter (statuses as of 07/23/2022) [address]12-2015 History of Past illness Narrative* Problem Noted Date Resolved Date Seizure 01/24/2015 06/21/2018 documented as of this encounter (statuses as of 08/26/2022) [address]-2015 History of Past illness Narrative* Problem Noted Date Resolved Date Seizure 01/24/2015 06/21/2018 documented as of this encounter (statuses as of 09/10/2022) [address]2015 History of Past illness Narrative* Problem Noted Date Resolved Date Seizure 01/24/2015 06/21/2018 documented as of this encounter (statuses as of 11/26/2022) [address]2015 History of Past illness Narrative* Problem Noted Date Resolved Date Seizure 01/24/2015 06/21/2018 documented as of this encounter (statuses as of 02/25/2023) [address] History of Past illness Narrative* Problem Noted Date Diagnosed Date Resolved Date Seizure 01/24/2015 06/21/2018 documented as of this encounter (statuses as of 06/17/2023) [address] History of Past illness Narrative* Problem Noted Date Diagnosed Date Resolved Date Seizure 01/24/2015 06/21/2018 documented as of this encounter (statuses as of 09/08/2023) [address]2015 History of Past illness Narrative* Problem Noted Date Diagnosed Date Resolved Date Seizure 01/24/2015 06/21/2018 documented as of this encounter (statuses as of 09/09/2023) [facility] History of Past illness Narrative* Problem Noted Date Diagnosed Date Resolved Date Seizure 01/24/2015 06/21/2018 documented as of this encounter (statuses as of 09/14/2023) [facility] History of Past illness Narrative* Problem Noted Date Diagnosed Date Resolved Date Seizure 01/24/2015 06/21/2018 documented as of this encounter (statuses as of 09/14/2023) [facility] History of Past illness Narrative* Problem Noted Date Diagnosed Date Resolved Date Seizure 01/24/2015 06/21/2018 documented as of this encounter (statuses as of 12/23/2023) [facility] summary Author Niki Weeks [facility] August 05, 2023 8:09am Note Date/Time August 05, 2023 8:09am [facility] [address] [place] [address] Discharge Summary Signed Patient: Cassi Rodrigez MR#: [id number] : 1950 Acct:[id number] Age/Sex: 73 / F Adm Date: 3 Loc: Room: 3L1422-[address]: Niki Weeks MD Copies to: [...] % (Auto) 77.1, Lymph % (Auto) 11.8, [place] % (Auto) 9.2, Eos % (Auto) 1.7, Baso % (Auto) 0.2, Nucleat RBC Rel Count 0.4, Neut # (Auto) 5.6, Lymph # (Auto) 0.9 L, [place] # (Auto) 0.7, Eos # (Auto) 0.1, [...] signed by Niki Weeks MD> 08/05/23 0809 [facility] Work Phone: Evaluation + Plan note Future Appointments Appointment Date:10/25/2024 10:30:00 AM Scheduled Provider: Location:[facility] Appointment Type:Surgical PAT FT Appointment Date:11/02/2024 12:30:00 PM Scheduled Provider: Location:[place] [facility] Appointment Type:Surgery FT [facility] Evaluation note* Diagnosis Chronic fatigue- Primary Other malaise and fatigue documented in this encounter [facility]* Diagnosis Partial epilepsy with impairment of consciousness, intractable (HCC) Localization-related (focal) (partial) epilepsy and epileptic syndromes with complex partial seizures, with intractable epilepsy documented in this encounter [facility]Evaluation noteNo assessment information [facility] Work Phone: evaluation noteNo InformationNouniversity of [facility] [employer] Other evaluation note* Diagnosis Onset Date Resolution Status Lumbar stenosis with neurogenic claudication acute [facility] Work Phone: Evaluqakal note* Diagnosis Sinus node dysfunction (HCC)- Primary Sinoatrial node dysfunction Cardiac pacemaker in situ Bradycardia Other specified cardiac dysrhythmias documented in this encounter [facility]* Diagnosis Partial epilepsy with impairment of consciousness, intractable (HCC) Localization-related (focal) (partial) epilepsy and epileptic syndromes with complex partial seizures, with intractable epilepsy documented in this encounter [facility]* Diagnosis Pacemaker [Z95.0]- Primary Cardiac pacemaker in situ documented in this encounter [facility]* Diagnosis Intractable 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 aura and without status migrainosus- Primary Chronic migraine without aura, with intractable migraine, so stated, without mention of status migrainosus documented in this encounter [facility]* Diagnosis Intractable 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 aura and without status migrainosus- Primary Chronic migraine without aura, with intractable migraine, so stated, without mention of status migrainosus Cervicalgia SHELL (obstructive sleep apnea) Obstructive sleep apnea (adult) (pediatric) documented in this encounter [facility]* Diagnosis Onset Date Resolution Status Hypertension acute Lumbar stenosis with neurogenic claudication acute [facility] Work Phone: Evaluation note* Diagnosis Onset Date Resolution Status Hypertension acute Lumbar stenosis with neurogenic claudication acute Age-related osteoporosis wit hout current pathological fracture acute Chronic kidney disease acute Hypertension acute Lumbosacral spondylosis with radiculopathy acute Obstructive sleep apnea acut e [facility] Work Phone: Evaluation note* Diagnosis Intractable 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 aura and without status migrainosus- Primary Chronic migraine without aura, with intractable migraine, so stated, without mention of status migrainosus documented in this encounter [facility]* Diagnosis Onset Date Resolution Status Age-related osteoporosis wit hout current pathological fracture acute Chronic kidney disease acute Hypertension acute Lumbosacral spondylosis with radiculopathy acute Obstructive sleep apnea acut e Arthropathy of right hip acu te Greater trochanteric bursitis of both hips acute History of lumbar surgery ac [place] Pain of both sacroiliac joints acute [facility] Work Phone: Evaluation note* Diagnosis Onset Date Resolution Status Age-related osteoporosis wit hout current pathological fracture acute Chronic kidney disease acute Hypertension acute Lumbosacral spondylosis with radiculopathy acute Obstructive sleep apnea acut e Arthropathy of right hip acu te Greater trochanteric bursitis of both hips acute History of lumbar surgery ac [place] Pain of both sacroiliac joints acute Anemia of renal disease acut e Chronic kidney disease acute [id number] acute Leukopenia acute Pancreatic cancer acute Secondary hyperparathyroidism acute Vitamin D deficiency acute [facility] Work Phone: Evaluation note* Diagnosis Onset Date Resolution Status Age-related osteoporosis wit hout current pathological fracture acute Chronic kidney disease acute Hypertension acute Lumbosacral spondylosis with radiculopathy acute Obstructive sleep apnea acut e Arthropathy of right hip acu te Greater trochanteric bursitis of both hips acute History of lumbar surgery ac [place] Pain of both sacroiliac joints acute Anemia of renal disease acut e CKD (chronic kidney disease) stage 4, GFR 15-29 ml/min acute [id number] acute Leukopenia acute Secondary hyperparathyroidism acute Age-related osteoporosis wit hout current pathological fracture acute Chronic kidney disease acute Gastroesophageal reflux dise ase with esophagitis without hemorrhage acute History of pancreatic cancer acute Hypertension acute Lumbar stenosis with neurogenic claudication acute Major depression acute Medicare annual wellness visit, subsequent noneactive Screening mammogram for breast cancer noneactive [facility] Work Phone: Evaluation note* Diagnosis Focal epilepsy with impairment of consciousness, intractable (HCC)- Primary Localization-related (focal) (partial) epilepsy and epileptic syndromes with simple partial seizures, with intractable epilepsy Partial epilepsy with impairment of consciousness, intractable (HCC) Localization-related (focal) (partial) epilepsy and epileptic syndromes with complex partial seizures, with intractable epilepsy documented in this encounter [facility]* Diagnosis Onset Date Resolution Status Arthropathy of right hip acu te Greater trochanteric bursitis of both hips acute History of lumbar surgery ac [place] Pain of both sacroiliac joints acute Anemia of renal disease acut e CKD (chronic kidney disease) stage 4, GFR 15-29 ml/min acute [id number] acute Leukopenia acute Secondary hyperparathyroidism acute Age-related [...] disease) stage 4, GFR 15-29 ml/min acute [id number] acute Leukopenia acute Secondary hyperparathyroidism acute Age-related [...] cancer acute [facility] Work Phone: Evaluation note* Diagnosis Sinus node dysfunction (HCC)- Primary Sinoatrial node dysfunction Cardiac pacemaker in situ Bradycardia Other specified cardiac dysrhythmias documented in this encounter [facility]* Diagnosis Intractable 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 aura and without status migrainosus- Primary Chronic migraine without aura, with intractable migraine, so stated, without mention of status migrainosus documented in this encounter [facility]* Diagnosis Onset Date Resolution Status Age-related [...] disease) stage 4, GFR 15-29 ml/min acute [id number] acute Secondary hyperparathyroidism acute [facility] Work Phone: Evaluation note* Diagnosis Abdominal wall hematoma, initial encounter- Primary [facility] Diagnosis Localization-related (focal) (partial) symptomatic epilepsy and epileptic syndromes with complex partial seizures, intractable, without status epilepticus (HCC) documented in this encounter [facility]* Diagnosis Abdominal wall hematoma, subsequent encounter- Primary [facility]* Diagnosis Localization-related (focal) (partial) symptomatic epilepsy and epileptic syndromes with complex partial seizures, intractable, without status epilepticus (HCC)- Primary Memory loss documented in this encounter [facility]* Diagnosis Intractable 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 aura and without status migrainosus- Primary Chronic migraine without aura, with intractable migraine, so stated, without mention of status migrainosus documented in this encounter [facility]* Diagnosis MCI (mild cognitive impairment)- Primary Mild cognitive impairment, so stated documented in this encounter [facility]* Diagnosis Intractable 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 aura and without status migrainosus- Primary Chronic migraine without aura, with intractable migraine, so stated, without mention of status migrainosus documented in this encounter [facility]* Diagnosis Chronic pain syndrome- Primary MCI (mild cognitive impairment) Mild cognitive impairment, so stated Sinus node dysfunction (HCC) Sinoatrial node dysfunction Obesity, Class II, BMI 35-39.9 Obesity, unspecified [facility]* Diagnosis Onset Date Resolution Status Admit [...] 02 2:50pm [facility] Work Phone: Evaluation note* Diagnosis Intractable 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 aura and without status migrainosus- Primary Chronic migraine without aura, with intractable migraine, so stated, without mention of status migrainosus documented in this encounter [facility] general Narrative - Reported* Type Description Date Surgical History back surgery-2 Surgical History cervical fusion Surgical History cholecystectomy Surgical History whipple procedure 2010 Surgical History appendectomy Surgical History hammer toe Surgical History rotator cuff-left Surgical History temporal lumpectomy Hospitalization History see surgical hx [employer] [employer] Other [facility] general Narrative - Reported* Type Description Date [...] temporal lumpectomy Hospitalization History see surgical hx [employer] Other History general Narrative - Reported* Type [...] Essential hypertension Medical History 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 Hospital Discharge instructions Additional Instructions Eat a well balanced [facility] Work Phone: Hospital Discharge instructionsAmbulatory Orders* Referral to Orthopedic Surgery Location: None Selected [facility] Work Phone: Hospital Discharge instructions No data available for this section [facility] Hospital Discharge instructions Additional Instructions As discussed you should hold your Coumadin for 5 days Wear abdominal binder as discussed Call Dr. Howard your primary care doctor on Wednesday let him know that you should be evaluated Please return here if you develop any dizziness, chest pain, shortness of breath, fevers, chills increased abdominal swelling, lightheadedness or any [facility] Work Phone: Progress note Author Niki Weeks [facility] August 05, 2023 8:00am Note Date/Time August 05, 2023 8:00am [facility] [address] [place] [address] Neurosurgery Progress Note Signed Patient: Cassi Rodrigez MR#: [id number] : 1950 Acct:[id number] Age/Sex: 73 / F Adm Date: 3 Loc: Room: [address] [place] [address] Type: REG SDC Attending Dr: Niki Weeks [...] % (Auto) 77.1, Lymph % (Auto) 11.8, [place] % (Auto) 9.2, Eos % (Auto) 1.7, Baso % (Auto) 0.2, Nucleat RBC Rel Count 0.4, Neut # (Auto) 5.6, Lymph # (Auto) 0.9 L, [place] # (Auto) 0.7, Eos # (Auto) 0.1, [...] signed by Niki Weeks MD> 08/05/23 0800 [facility] Work Phone: Progress note No data available for this section [facility] Reason for referral (narrative)* Outpatient Procedure (Routine) - Closed Specialty Diagnoses / Procedures Referred By Contac t Referred To Contact [facility] Diagnoses Chronic fatigue Procedures ECG COMPLETE ECG ROUTINE ECG W/LEAST 12 LDS W/I&[place] [address] [place] [address] [facility] [place] [address] [place] [address] Referral ID Status Reason Start Date Expiration Date V isits Requested Visits Authorized [id number] Closed Auto-Generate d Referral 07/23/2022 07/23/2023 1 1 [facility] for referral (narrative)* Outpatient Procedure (Routine) - Pending Review Specialty Diagnoses / Procedures Referred By Contac t Referred To Contact [facility] Diagnoses Sinus node dysfunction (HCC) Cardiac pacemaker in situ Bradycardia Procedures ECG COMPLETE ECG ROUTINE ECG W/LEAST 12 LDS W/I&R Mirian Bell APRN.CNP [address] [place] [address] [facility] [place] [address] [place] [place] [address] Referral ID Status Reason Start Date Expiration Date Visits Requested Visits Authorized [id number] Pending Review Auto-Generat ed Referral 3 09/07/2024 1 1 [facility] for referral (narrative)* Outpatient Procedure (Routine) - Pending Review Specialty Diagnoses / Procedures Referred By Contac t Referred To Contact [facility] Diagnoses Sinus node dysfunction (HCC) Procedures ECHO ECHO TTHRC R-T 2D W/WOM-MODE COMPL SPEC&[place] [address] [place] [address] [facility] [address] [address] Referral ID Status Reason Start Date Expiration Date Visits Requested Visits Authorized [id number] Pending Review Auto-Generat ed Referral 4 08/31/2025 1 1 * Outpatient Procedure (Routine) - New Request Specialty Diagnoses / Procedures Referred By Saturnino bhatia Referred To Contact [facility] Diagnoses Sinus node dysfunction (HCC) Procedures ECG COMPLETE ECG ROUTINE ECG W/LEAST 12 LDS W/I&[place] [address] [place] [address] [address] [place] [address] Referral ID Status Reason Start Date Expiration Date Visits Requested Visits Authorized [id number] New Request Auto-Generat ed Referral 4 08/31/2025 1 1 [facility] for referral (narrative)No reason for referral information [facility] Work Phone: Reason for visit Narrative* Injectable (Routine) - Authorized Specialty Diagnoses / Procedures Referred By Saturnino t Referred To Contact ADULT NEUROLOGY Diagnoses Chronic migraine without aura, intractable, without status migrainosus Procedures BOTULINUM TOXIN A PER 1 UNIT CHEMODERVATE FACIAL/TRIGEM/[place] [address] [place] [address] Phone: tel: fax: Neurology [address] [place] [address] Phone: tel: fax: Referral ID Status Reason Start Date Expiration Date V isits Requested Visits Authorized [id number] Authorized 03/13/2024 11/14/2025 8 8 [facility] Summary Purpose Family History No Family History [...] 2: 50pm Z95.0 July 23, 2025 8:48am Reason for Visit Admit Date Age-related osteoporosis [...] 2:50pm Screening mammogram for breast cancer [facility] 2024 2:50pm Chief Complaint m47.27 Chief Complaint m47.27 m47.27 Chief Complaint m47.27 m47.27 stenosis Chief Complaint m47.27 m47.27 stenosis stenosis Reason for Visit Lumbar stenosis with neurogenic claudication Chief Complaint Cough , Drainage For Weeks [phone] BACK ISSUES Chief Complaint BACK ISSUES Amb [...] Anemia of renal disease Chronic kidney disease [id number] Leukopenia Pancreatic cancer Secondary hyperparathyroidism Vitamin D [...] kidney disease) stage 4, GFR 15-29 ml/min [id number] Leukopenia Secondary hyperparathyroidism Age-related osteoporosis without current [...] kidney disease) stage 4, GFR 15-29 ml/min [id number] Leukopenia Secondary hyperparathyroidism Age-related osteoporosis without current pathological fracture Chronic kidney disease Gastroesophageal reflux disease with esophagitis without hemorrhage History of pancreatic cancer Hypertension Lumbar stenosis with neurogenic claudication Major depression Medicare annual wellness visit, subsequent Screening mammogram for breast cancer Chief Complaint RENAL CKD MAWV Unknown 1 YR F/U-CONSTIPATION/NAUSEA Reason for Visit Anemia of renal dise [facility] CKD (chronic kidney disease) stage 4, GFR 15-29 ml/min [id number] Leukopenia Secondary hyperparathyroidism Age-related osteoporosis without current [...] Reason for Visit Anemia of renal dise [facility] CKD (chronic kidney disease) stage 4, GFR 15-29 ml/min [id number] Leukopenia Secondary hyperparathyroidism Age-related osteoporosis without current [...] Reason for Visit Anemia of renal dise [facility] CKD (chronic kidney disease) stage 4, GFR 15-29 ml/min [id number] Leukopenia Secondary hyperparathyroidism Age-related osteoporosis without current [...] kidney disease) stage 4, GFR 15-29 ml/min [id number] Secondary hyperparathyroidism Chief Complaint Admit Date 1 [...] 2024 8:49am Preop exam for internal medicine [facility] r 2023 8:49am Chief Complaint Admit Date [...] 2024 8:49am Preop exam for internal medicine [facility] 2023 8:49am Adverse effect of anticoagul ant [...] 0:35am stomach pain-sent by November 24 1:33pm [facility] ER f/u November 28, 2024 1 [...] 2024 8:49am Preop exam for internal medicine [facility] r 2023 8:49am Adverse effect of anticoagul [...] 0:35am stomach pain-sent by November 24 1:33pm [facility] ER f/u November 28, 2024 1 [...] 2024 8:49am Preop exam for internal medicine [facility] 2023 8:49am Adverse effect of anticoagul ant [...] 0:35am stomach pain-sent by November 24 1:33pm [facility] ER f/u November 28, 2024 1 [...] 0:35am stomach pain-sent by November 24 1:33pm [facility] ER f/u November 28, 2024 1 [...] Date Wellness July 02, 2025 2: 50pm Chief Complaint Admit Date Wellness July 02, 2025 2: 50pm Z95.0 July 23, 2025 8:48am M96.1 M48.062 M54.17 August 01 7:15am Reason for Referral Specialty Diagnoses / Procedures Referred By Contac t Referred To Contact [facility] [place] Diagnoses Cervicalgia Procedures CONSULT TO [facility] OFFICE/OUTPATIENT [facility] 60 [place] [address] [address] [id number] Referral ID Status Reason Start Date Expiration Date Visits Requested Visits Authorized [id number] Authorized PCP Requested Referral 03/07/2024 03/07/2025 1 1 Specialty Diagnoses / Procedures Referred By Contac t Referred To Contact Diagnoses SHELL (obstructive sleep apnea) Procedures CONSULT TO SLEEP MEDICINE - ADULT OFFICE/OUTPATIENT [facility] 60 [place] [address] [address] [phone] Referral ID Status Reason Start Date Expiration Date Visits Requested Visits Authorized [id number] Authorized PCP Requested Referral 03/07/2024 03/07/2025 1 1 Specialty Diagnoses / Procedures Referred By Contac t Referred To Contact [facility] Diagnoses Intractable 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 aura and without status migrainosus Procedures CONSULT TO HEADACHE CLINIC OFFICE/OUTPATIENT [facility] MDM 60 MINUTES Lauren Otero, CONNIE.CALL CENTER OPERATIONS MANAGER [address] [phone] Neur Headache Main [address] [place] [phone] Referral ID Status Reason Start Date Expiration Date Visits Requested Visits Authorized [id number] Authorized PCP Requested Referral 12/23/2023 12/22/2024 1 1 Additional Source Comments REASON FOR VISIT (unrecogniz ed section and content) Reason Comments Established Patient Botox treatment Chronic Migraine Specialty Diagnoses / Procedures Referred By Contac t Referred To Contact ADULT NEUROLOGY Diagnoses Chronic migraine without aura, intractable, without status migrainosus Procedures BOTULINUM TOXIN A PER 1 UNIT CHEMODERVATE FACIAL/TRIGEM/[place] [address] [place] [address] Phone: tel: fax: Neurology [address] [place] [id number] Phone: tel: fax: Referral ID Status Reason Start Date Expiration Date V isits Requested Visits Authorized [id number] Authorized 03/13/2024 11/14/2025 8 8 Reason Comments Cardiology Follow Up Reason Comments [...] Procedures CONSULT TO HEADACHE CLINIC OFFICE/OUTPATIENT [facility] MDM 60 MINUTES Lauren Otero, CONNIE.CALL CENTER OPERATIONS MANAGER [address] [phone] Neur Headache Main [address] [place] [phone] Referral ID Status Reason Start Date Expiration Date V isits Requested Visits Authorized [id number] Closed PCP Requested Referral 12/23/2023 12/22/2024 1 1 Reason Comments Established Patient botox Specialty Diagnoses / Procedures Referred By Contac t Referred To Contact ADULT NEUROLOGY Diagnoses Chronic migraine without aura, intractable, without status migrainosus Procedures BOTULINUM TOXIN A PER 1 UNIT CHEMODERVATE FACIAL/TRIGEM/[place] [address] [facility] [place] [address] [place] [address] Referral ID Status Reason Start Date Expiration Date V isits Requested Visits Authorized [id number] Authorized 03/13/2024 03/13/2025 4 4 Reason Comments Epilepsy Reason Comments Cardiology Follow Up Specialty Diagnoses / Procedures Referred By Contac t Referred To Contact ADULT NEUROLOGY Diagnoses Chronic migraine without aura, intractable, without status migrainosus Procedures BOTULINUM TOXIN A PER 1 UNIT CHEMODERVATE FACIAL/TRIGEM/[place] [address] [facility] [place] [address] [place] [address] Reason Comments Large abdominal hematoma Reason Comments Refill Request Reason Comments PCP requested pt. be seen again for blis ters on her abdomen Reason Comments Follow Up Reason Comments Established Patient botox Chronic Migraine Reason Comments New Patient Specialty Diagnoses / Procedures Referred By Contac t Referred To Contact Neurology Diagnoses MCI (mild cognitive impairment) Procedures CONSULT TO NEUROLOGY OFFICE/OUTPATIENT NEW HIGH MDM 60 MINUTES Alejandro Villar MD, PhD [address] [place] [address] Phone: tel: fax: Outpatient Referral [address] [address] Referral ID Status Reason Start Date Expiration Date V isits Requested Visits Authorized [id number] Closed PCP Requested Referral 05/07/2025 11/14/2025 1 1 Source Comments (unrecognize d section and content) In the event this informatio n is protected by the Federal Confidentiality of Alcohol and Drug Abuse Patient Records regulations: The Federal rules restrict any use of the information to criminally investigate or prosecute any alcohol or drug abuse patient.TrihealthIn the event this information is protected by the Federal Confidentiality of Alcohol and Drug Abuse Patient Records regulations: The Federal rules restrict any use of the information to criminally investigate or prosecute any alcohol or drug abuse patient.TrihealthIn the event this information is protected by the Federal Confidentiality of Alcohol and Drug Abuse Patient Records regulations: The Federal rules restrict any use of the information to criminally investigate or prosecute any alcohol or drug abuse patient.TrihealthIn the event this information is protected by the Federal Confidentiality of Alcohol and Drug Abuse Patient Records regulations: The Federal rules restrict any use of the information to criminally investigate or prosecute any alcohol or drug abuse patient.TrihealthIn the event this information is protected by the Federal Confidentiality of Alcohol and Drug Abuse Patient Records regulations: The Federal rules restrict any use of the information to criminally investigate or prosecute any alcohol or drug abuse patient.TrihealthIn the event this information is protected by the Federal Confidentiality of Alcohol and Drug Abuse Patient Records regulations: The Federal rules restrict any use of the information to criminally investigate or prosecute any alcohol or drug abuse patient.TrihealthIn the event this information is protected by the Federal Confidentiality of Alcohol and Drug Abuse Patient Records regulations: The Federal rules restrict any use of the information to criminally investigate or prosecute any alcohol or drug abuse patient.[facility]healthIn the event this information is protected by the Federal Confidentiality of Alcohol and Drug Abuse Patient Records regulations: The Federal rules restrict any use of the information to criminally investigate or prosecute any alcohol or drug abuse patient.TrihealthIn the event this information is protected by the Federal Confidentiality of Alcohol and Drug Abuse Patient Records regulations: The Federal rules restrict any use of the information to criminally investigate or prosecute any alcohol or drug abuse patient.TrihealthIn the event this information is protected by the Federal Confidentiality of Alcohol and Drug Abuse Patient Records regulations: The Federal rules restrict any use of the information to criminally investigate or prosecute any alcohol or drug abuse patient.TrihealthIn the event this information is protected by the Federal Confidentiality of Alcohol and Drug Abuse Patient Records regulations: The Federal rules restrict any use of the information to criminally investigate or prosecute any alcohol or drug abuse patient.TrihealthIn the event this information is protected by the Federal Confidentiality of Alcohol and Drug Abuse Patient Records regulations: The Federal rules restrict any use of the information to criminally investigate or prosecute any alcohol or drug abuse patient.TrihealthIn the event this information is protected by the Federal Confidentiality of Alcohol and Drug Abuse Patient Records regulations: The Federal rules restrict any use of the information to criminally investigate or prosecute any alcohol or drug abuse patient.TrihealthIn the event this information is protected by the Federal Confidentiality of Alcohol and Drug Abuse Patient Records regulations: The Federal rules restrict any use of the information to criminally investigate or prosecute any alcohol or drug abuse patient.TrihealthIn the event this information is protected by the Federal Confidentiality of Alcohol and Drug Abuse Patient Records regulations: The Federal rules restrict any use of the information to criminally investigate or prosecute any alcohol or drug abuse patient.TrihealthIn the event this information is protected by the Federal Confidentiality of Alcohol and Drug Abuse Patient Records regulations: The Federal rules restrict any use of the information to criminally investigate or prosecute any alcohol or drug abuse patient.TrihealthIn the event this information is protected by the Federal Confidentiality of Alcohol and Drug Abuse Patient Records regulations: The Federal rules restrict any use of the information to criminally investigate or prosecute any alcohol or drug abuse patient.TrihealthIn the event this information is protected by the Federal Confidentiality of Alcohol and Drug Abuse Patient Records regulations: The Federal rules restrict any use of the information to criminally investigate or prosecute any alcohol or drug abuse patient.TrihealthIn the event this information is protected by the Federal Confidentiality of Alcohol and Drug Abuse Patient Records regulations: The Federal rules restrict any use of the information to criminally investigate or prosecute any alcohol or drug abuse patient.TrihealthIn the event this information is protected by the Federal Confidentiality of Alcohol and Drug Abuse Patient Records regulations: The Federal rules restrict any use of the information to criminally investigate or prosecute any alcohol or drug abuse patient.TrihealthIn the event this information is protected by the Federal Confidentiality of Alcohol and Drug Abuse Patient Records regulations: The Federal rules restrict any use of the information to criminally investigate or prosecute any alcohol or drug abuse patient.TrihealthIn the event this information is protected by the Federal Confidentiality of Alcohol and Drug Abuse Patient Records regulations: The Federal rules restrict any use of the information to criminally investigate or prosecute any alcohol or drug abuse patient.TrihealthIn the event this information is protected by the Federal Confidentiality of Alcohol and Drug Abuse Patient Records regulations: The Federal rules restrict any use of the information to criminally investigate or prosecute any alcohol or drug abuse patient.[facility] ClinicIn the event this information is protected by the Federal Confidentiality of Alcohol and Drug Abuse Patient Records regulations: The Federal rules restrict any use of the information to criminally investigate or prosecute any alcohol or drug abuse patient.[facility] Care Teams (unrecognized sec tion and content) [...] End: February 21, 2025 Josefina Adams APRN WOOD MILLING MACHINE OPERATOR-C Attending Provider Act lauryn Start: February 21, [...] 2024 Alejandro Villar Attending Provider Active Start: A 2023 Team Status: Inactive Member Role Status [...] Status: Inactive Member Role Status Dates Broderick Lee DO Primary Care Provide r, Attending Provider [...] March 09, 2024 End: March 09, 2024 Whipped Topping Supervisor Relationship Specialty Start Date End Date Lee Broderick [place], [address] [id number] PCP - General Internal Medicine 09/21/18 Kitty Valente MD [address] [place] [address] Primary Staff Physician Cardiology 01/31/19 Whipped Topping Supervisor Relationship Specialty Start Date End Date Lee Broderick DO [place] [address] [place] [address] PCP - General Internal Medicine 09/21/18 Kitty Valente MD [address] [place] [address] Primary Staff Physician Cardiology 01/31/19 Whipped Topping Supervisor Relationship Specialty Start Date End Date Broderick Howard, DO [address] [facility] [place] [address] PCP - General Internal Medicine 09/21/18 Kitty Valente MD [address] [place] [address] Primary Staff Physician Cardiology 01/31/19 Whipped Topping Supervisor Relationship Specialty Start Date End Date Broderick Howard, DO [address] [facility] [place] [address] PCP - General Internal Medicine 09/21/18 Kitty Valente MD [address] [place] [address] Primary Staff Physician Cardiology 01/31/19 Whipped Topping Supervisor Relationship Specialty Start Date End Date Broderick Howard, DO [address] [facility] [place] [address] PCP - General Internal Medicine 09/21/18 Kitty Valente MD [address] [place] [address] Primary Staff Physician Cardiology 01/31/19 Team Status: Inactive Member Role Status Dates Broderick Howard DO Primary Care Provider, Attending Pr ovider Active Whipped Topping Supervisor Relationship Specialty Start Date End Date Broderick Howard DO [address] [facility] [place] [address] PCP - General Internal Medicine 09/21/18 Kitty Valente MD [address] [place] [address] Primary Staff Physician Cardiology 01/31/19 Team Status: Inactive Member Role Status Dates Broderick Howard DO Primary Care Provider Active Niki Weeks MD Attending Provider Active Whipped Topping Supervisor Relationship Specialty Start Date End Date Broderick Howard DO [address] [facility] [place] [address] PCP - General Internal Medicine 09/21/18 Kitty Valente MD [address] [place] [address] Primary Staff Physician Cardiology 01/31/19 Whipped Topping Supervisor Relationship Specialty Start Date End Date Broderick Howard DO [address] [place] [address] PCP - General Internal Medicine 09/21/18 Kitty Valente MD [address] [place] [address] Primary Staff Physician Cardiology 01/31/19 Whipped Topping Supervisor Relationship Specialty Start Date End Date Broderick Howard DO [address] [id number] PCP - General Internal Medicine 09/21/18 Kitty Valente MD [address] [place] [address] Primary Staff Physician Cardiology 01/31/19 Whipped Topping Supervisor Relationship Specialty Start Date End Date Broderick Howard DO [address] [id number] PCP - General Internal Medicine 09/21/18 Kitty Valente MD [address] [place] [address] Primary Staff Physician Cardiology 01/31/19 Whipped Topping Supervisor Relationship Specialty Start Date End Date Broderick Howard DO [address] [place] [address] PCP - General Internal Medicine 09/21/18 Kitty Valente MD [address] [place] [address] Primary Staff Physician Cardiology 01/31/19 Team Status: Inactive Member Role Status Dates Broderick Howard DO Attending Provider Active Sta rt: November 24, 2023 End: November 24, 2023 Team Status: Inactive Member Role Status Dates Broderick Howard DO Primary Care Provide r, Attending Provider Active Start: February 09, 2024 End: February 09, 2024 Whipped Topping Supervisor Relationship Specialty Start Date End Date Broderick Howard DO [address] [place] [address] PCP - General Internal Medicine 09/21/18 Kitty Valente MD [address] [place] [address] Primary Staff Physician Cardiology 01/31/19 Team Status: Active Member Role Status Dates Broderick Howard DO Primary Care Provide r, Attending Provider Active Start: February 10, 2024 Team Status: Active Member Role Status Dates Broderick Howard DO Primary Care Provider Active Start: February 15, 2024 HERSON Golden Attending Provider Active St art: February 15, 2024 Whipped Topping Supervisor Relationship Specialty Start Date End Date Broderick Howard DO [address] [place] [id number] PCP - General Internal Medicine 09/21/18 Kitty Valente MD [address] [place] [address] Primary Staff Physician Cardiology 01/31/19 Whipped Topping Supervisor Relationship Specialty Start Date End Date Broderick Howard DO [address] [id number] PCP - General Internal Medicine 09/21/18 iKtty Valente MD [address] [place] [address] Primary Staff Physician Cardiology 01/31/19 Whipped Topping Supervisor Relationship Specialty Start Date End Date Broderick Howard DO [address] [place] [address] PCP - General Internal Medicine 09/21/18 Kitty Valente MD [address] [place] [address] Primary Staff Physician Cardiology 01/31/19 Whipped Topping Supervisor Relationship Specialty Start Date End Date Broderick Howard MD [address] [place] [facility] [place] [id number] PCP - General Internal Medicine 05/03/24 Whipped Topping Supervisor Relationship Specialty Start Date End Date Broderick Howard MD [address] [place] [id number] PCP - General Internal Medicine 05/03/24 Whipped Topping Supervisor Relationship Specialty Start Date End Date Broderick Howard DO [address] [place] [address] PCP - General Internal Medicine 09/21/18 Kitty Valente MD [address] [place] [address] Primary Staff Physician Cardiology 01/31/19 Whipped Topping Supervisor Relationship Specialty Start Date End Date Broderick Howard DO [address] [place] [address] PCP - General Internal Medicine 09/21/18 Kitty Valente MD [address] [place] [address] Primary Staff Physician Cardiology 01/31/19 Whipped Topping Supervisor Relationship Specialty Start Date End Date Broderick Howard DO [address] [place] [address] PCP - General Internal Medicine 09/21/18 Kitty Valente MD [address] [place] [address] Primary Staff Physician Cardiology 01/31/19 Team Status: Inactive Member Role Status Dates Broderick Howard DO Primary Care Provider Active Start: February 22, 2025 End: February 22, 2025 Katina Ordoñez MD Attending Provider Active Start : February 22, 2025 End: February 22, 2025 Whipped Topping Supervisor Relationship Specialty Start Date End Date Broderick Howard DO [address] [id number] PCP - General Internal Medicine 09/21/18 Kitty Valente MD [address] [place] [address] Primary Staff Physician Cardiology 01/31/19 Team Status: Inactive Member Role Status Dates Broderick Howard DO Primary Care Provider Active Start: July 02, 2025 End: July 02, 2025 Broderick Howard DO Attending Provider Active Sta rt: July 02, 2025 End: July 02, 2025 Whipped Topping Supervisor Relationship Specialty Start Date End Date Broderick Howard DO [address] [place] [address] PCP - General Internal Medicine 09/21/18 Kitty Valente MD [address] [place] [address] Primary Staff Physician Cardiology 01/31/19 Team Status: Active Member Role Status Dates Broderick Howard DO Primary Care Provider Active Start: July 23, 2025 REYES Maldonado Other Provider Active Start: July 23, 2025 Leandra Gama MD Attending Provider Active Start: July 23, 2025 Team Status: Inactive Member Role Status Dates Broderick Howard DO Primary Care Provider Active Start: August 01, 2025 End: August 01, 2025 REYES Maldonado Attending Provider Active St art: August 01, 2025 End: August 01, 2025 INFORMATION SOURCE (unrecogn ized section and content) DATE CREATED AUTHOR 07/24/2022 [facility] DATE CREATED AUTHOR AUTHOR'S ORGANIZ ATION 04/23/2023 [facility] DATE CREATED AUTHOR AUTHOR'S ORGANIZ ATION 06/11/2023 [facility] [place] DATE CREATED AUTHOR AUTHOR'S ORGANIZ ATION 06/10/2024 [facility] DATE CREATED AUTHOR AUTHOR'S ORGANIZ ATION 10/26/2024 [facility] DATE CREATED AUTHOR AUTHOR'S ORGANIZ ATION 10/28/2024 [facility] DATE CREATED AUTHOR AUTHOR'S ORGANIZ ATION 11/05/2024 [facility] DATE CREATED AUTHOR AUTHOR'S ORGANIZ ATION 11/06/2024 [facility] DATE CREATED AUTHOR AUTHOR'S ORGANIZ ATION 11/08/2024 [facility] DATE CREATED AUTHOR AUTHOR'S ORGANIZ ATION 12/15/2024 [facility] DATE CREATED AUTHOR AUTHOR'S ORGANIZ ATION 05/24/2025 [facility] DATE CREATED AUTHOR AUTHOR'S ORGANIZ ATION 05/31/2025 [facility] DATE CREATED AUTHOR AUTHOR'S ORGANIZ ATION 07/19/2025 [facility] DATE CREATED AUTHOR AUTHOR'S ORGANIZ ATION 08/02/2025 [facility] Goals (unrecognized section and [...] BASED ON THE PRIMARY CLINICAL RECORDS. [facility] [employer] provides no warranty or guarantee of the accuracy or completeness of information in this document.
== END 2025-08-02 10:07 | disposition home or self-care (01) ==
LOC: MAMMO 10:06
PROVIDERS: PCP Internal Medicine; Visit Provider Internal Medicine
DX: Z12.31 Encounter for screening mammogram for malignant neoplasm of breast (principal); Z80.3 Family history of malignant neoplasm of breast; Z80.8 Family history of malignant neoplasm of other organs or systems
CPT/HCPCS: 77063; 77067

== ENCOUNTER 2025-08-06 08:49 | Outpatient (OUT) | payer MEDICARE, SELFPAY ==
--- OUTSIDE RECORDS SUMMARY | 2025-08-06 09:02 | XMS_ITS | CCD ---
Author Organization [facility] Care Team Providers Care Agricultural Service Worker Name Role Phone Bertram Sanders Unavailable Broderick [...] Care Provider Ball, DO Broderick Attending Provider IWLIAN Mcfadden Attending Provider Ball, DO Broderick Primary [...] Unavailable Broderick Howard DO Primary Care Provider [phone] Kristel Low APRN Emergency Provider [phone] KITTY VALENTE Attending Unava ilable BRODERICK HOWARD Primary Care Unavailable KITTY VALENTE Referring Unava ilable BRODERICK HOWARD Primary Care Unavailable ELIAN JONES Attending Unavailable ALEJANDRO VILLAR Referring Unavailable BRODERICK HOWARD Primary Care Unavailable Broderick Howard DO Primary Care Provider Broderick Howard DO Attending Provider [phone] TOMMIE, RANDA M Attending Unavailable REILLY, RANDA [...] BALL, BRODERICK E Primary Care Unavailable Trudi SALES TRADER-C, Tiana E Other Provider Leandra Gama MD Attending Provider Trudi SALES TRADER-C, Tiana Quinteros Attending Provider Kristel Low Attending Unavailable Ball, Broderick Primary Care Unavailable Kristel Low Admitting Unavailable Trudi, Tiana E Admitting Unavailable Trudi, Tiana E Attending Unavailable Ball, Broderick Primary Care Unavailable Trudi, Tiana E Admitting Unavailable Trudi, Tiana E Attending Unavailable Ball, Broderick Primary Care Unavailable Allergies Allergy Classification Reported Allergen(s) Allergy Type Date of Onset Reaction(s) Facility (20 sources) Dexamethasone; Translations: [dexAMETHasone] Drug Allergy 10-03-20 15 Rash, Unknown [facility] (20 sources) pregabalin; Translations: [pregabalin] Drug Allergy 08-24-20 13 Rash [facility] (20 sources) rifAXIMin Drug Allergy 02-09-20 24 rash [facility] (1 source) Dexamethasone Drug Allergy [facility] Repository (6 sources) pregabalin; Translations: [Lyrica] Drug Allergy 11-15-19 08 [facility] Repository (20 sources) Dexamethasone Drug Allergy 02-08-20 24 Unknown, Unknown Reaction [facility] (8 sources) Allergies Reconciled Propensity to adverse reactions Unknown [employer] Other (8 sources) patient allergy list reviewed by nurse or physicia Propensity to adverse reactions 04-13-20 19 Comment:Done [employer] Other (3 sources) Pregabalin Allergy to substance 08-24-20 13 Rash, Unknown [facility] (3 sources) rifAXIMin Drug Allergy 04-21-20 Rash [facility] (1 source) Dexamethasone Drug Allergy 07-02-20 [facility] Repository (1 source) pregabalin Drug Allergy 07-02-20 [facility] Repository (1 source) rifAXIMin Drug Allergy 07-02-20 [facility] Repository Medications Current Medications Medication Drug Class(es) [...] for 7 day(s), 21 tab(s), Refill(s) 0, [facility]/pharmacy #[id number], 157, cm, 10/25/24 11:44:00 [...] on above: Take 1 capsule by [facility] once daily. ondansetron 4 mg disintegrating [...] DAY Start: 08-20-2024 take 1 capsule by [facility] once daily Venlafaxine Active 0 .ROUTE .COMPLEX [...] 20, 2023 11:47am take 1 tablet by [facility] every twenty-four hours Venlafaxine HCl 75 MG 1 tablet with food Orally Once a day Not-Taking/PRN Comment on above: Take 1 capsule by [facility] once daily. Vitamin D (1 source) Start: [...] 2:56pm Start: 08-12-2023 take 1 capsule by [facility] twice daily Keflex 500 MG 1 capsule [...] sources) Long-term current use of anticoagulant; Translations: [intermediate project manager (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 of anticoagulants] Onset: 4 02-08-2024 Episodic Other aftercare (5 sources) Encounter for therapeutic drug level monitoring; Translations: [ENC THERAPEUTC DRUG LEVL MONITORING] Onset: 3 Episodic Other aftercare (1 source) intermediate project manager (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 of anticoagulants; Translations: [PENITENTIARY CURRNT USE ANTICOAGULANTS] Onset: 3 Episodic Other aftercare (8 sources) Long-term current use of drug therapy; Translations: [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 (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) drug therapy] Episodic Other aftercare (1 source) Drug therapy finding; Translations: [Other fpc (current) drug therapy] 02-08-2024 Episodic Other and [...] Other aftercare (20 sources) Anticoagulant effect; Translations: [USP (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 of anticoagulants] Onset: 05-14-2015 05-14-2015 Episodic Other aftercare (1 source) Other fpc (current) drug therapy; Translations: [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 Performed By: #### C REAT ####[place] [id number] [facility] GFR/1.73 sq M.predicted MDRD (S/P/Bld) [Vol rate/Area] 27.025 mL/min/{1.73_m2} Normal [facility] Comment on above: Order Comment: STAT FOR MRI Performed By: #### C REAT ####[place] [id number] [facility] Creatinine [Mass/volume] in Serum or PlasmaOrdered By: Tiana Brush on 08-01-2025 Creatinine [Mass/Vol] 1.91 mg/dL High 0.60-1.20 [facility] Comment on above: Order Comment: STAT FOR MRI Performed By: #### C REAT ####[place] [id number] [facility] Glomerular filtration rate [ Volume Rate/Area] in Serum, Plasma or Blood by CreatinineOrdered By: Tiana Brush on 08-01-2025 Glomerular filtration rate [Volume Rate/Area] in Serum, Plasma or Blood by Creatinine 27.025 mL/Min [facility] ISTAT XRay CREon 08-01-2025 ISTAT GFR 27.197 Normal [facility] Comment on above: Result Comment: PERF ORMED BY: [facility] [address] [place] [address] PATHOLOGIST RN CCU LISA LOMBARDO M.D. Performed By: #### I SCRE ####[place] [id number] [facility] MR lumbar spine wo conon MR lumbar spine wo con [facility] Main [place] [address] [place] [address] MRI Report Signed Patient: Cassi Rodrigez MR#: [id number] 8 : 1950 Acct:[id number] Age/Sex: 75 / F ADM Date: 08/01/25 Loc: MR Room: Type: [facility] Attending Dr: iTana CHAMBERS Copies to: REYES Maldonado Ordering Provider: [...] Simon M.D. 08/01/2025 3:20 PM Dictation Location: [place] [address] Transcribed By: [facility] 08/01/25 1520 Dictated By: Arnel Simon II, MD 08/01/25 1508 Signed By: 08/01/25 1520 Normal [facility] Magnetic resonance imaging r eportOrdered By: Arnel Simon on 08-01-2025 Study report [place] [address] MRI Report Signed Patient: Cassi Rodrigez MR#: [id number] : 1950 Acct:[id number] Age/Sex: 75 / F ADM Date: 5 Loc: MR Room: Type: [facility] Attending Dr: Tiana CHAMBERS Copies to: [...] Simon M.D. 08/01/2025 3:20 PM Dictation Location: [place] [address] Transcribed By: [facility] 08/01/25 1520 Dictated By: Arnel Simon II, MD 08/01/25 1508 Signed By: 08/01/25 1520 [facility] Work Phone: No Panel InformationOrdered By: Tiana Brush on 08-01-2025 Bedside Estimated GFR (eGFR) 27.197 [facility] Pharmacy Creatinine Clearance (Chem 25.93 [facility] Whole blood creatinine measu rementOrdered By: Tiana Brush on 08-01-2025 Creatinine [Mass/Vol] 1.9 mg/dL High 0.6-1.3 [facility] Comment on above: ER/ESD physician is notified/shown all ISTAT results.Critical values may be confirmed by laboratory testing ifdeemed necessary by ER attending doctor. Result Comment: ER/E SD physician is notified/shown all ISTAT results. Critical values may be confirmed by laboratory testing if deemed necessary by ER attending doctor. Performed By: #### I SCRE ####[facility] [id number] [place] [address] [facility] CNOVon 07-18-2025 CNOV Office Visit (NEADFV ) -- CASSI RODRIGEZ ([id number]) 1950 F Date Time Provider Department 07/18/25 [...] Blanc RN Botox, 2 vials: Lot # [id number] Exp 09/2027 Lot # [id number] Exp 09/[address] Reilly [...] Injection Sites Muscle Fixed Site/Fixed Dose Bilat Work Force Advisor 20 U divided in 2 sites Procerus [...] Units wasted: 0 Randa Reilly MD [facility] Randa Reilly MD 07/18/2025 12:52 PM Signed PROGRESS NOTE- [facility]IC[facility] SERVICE DATE: July 18, 2025 Location: [facility] Participants: patient, and provider HPI: Here [...] WENDY Randa Reilly MD [facility] [place] Referring Provider: RANDA REILLY [[id number]] Allergies As of Date: 07/18/2025 Noted Allergy Reaction LYRICA (PREGABALIN) 08/24/2013 2 - Rash DEXAMETHASONE 10/03/2015 2 - Rash Date Reviewed: 07/18/2025 Reviewed by: Nola Naranjo MA - Fully Assessed Reason for (more content not included)... Normal [facility] CNOVon 05-21-2025 CNOV Office Visit (NEBHLT ) -- CASSI RODRIGEZ ([id number]) 1950 F Date Time Provider Department 05/21/25 8:00 AM ELIAN JONES During your visit today, we recorded the following information about you: Blood pressure Weight 123/60 87.3 kg Elian Jones DO 05/23/2025 2:36 PM Signed [facility] [place] [facility] New Patient Evaluation Cassi Rodrigez : 1950 05/21/2025 8:00 AM Chief Complaint: memory concern I had the pleasure of seeing this 75 year old year old female at the [facility]. The patient is referred by Dr. [...] She was advised to follow up at [facility] for further evaluation of her memory [...] Injuries, Ac (more content not included)... Normal [facility] CNOVon 04-10-2025 CNOV Office Visit (NEADFV ) -- CASSI RODRIGEZ ([id number]) 1950 F Date Time Provider Department 04/10/25 11:30 AM RANDA REILLY NETAHMINAFV During your visit today, we recorded the following information about you: Pulse Blood pressure Weight Height 86/minute 109/72 85.6 kg 1.575 m Randa Reilly MD 04/10/2025 12:19 PM Signed PROGRESS NOTE- [facility] MEDICINE SERVICE DATE: April 10, 2025 Location: [facility] Participants: patient, and provider HPI: Here [...] WENDY Randa Reilly MD [facility] [place] Lon Alexander RN 04/10/2025 12:19 PM Signed [...] Farfan RN Botox, 2 vials: Lot # [id number] Exp 08/2027 Lot # [id number] Exp 08/[address] Reilly [...] Injection Sites Muscle Fixed Site/Fixed Dose Bilat Work Force Advisor 20 U divided in 2 sites Procerus [...] 0 Randa Reilly MD [facility] [place] Referring Provider: RANDA REILLY [[id number]] Allergies As of Date: 04/10/2025 Noted Allergy [...] bedtime. - (more content not included)... Normal [facility] Erythrocyte distribution wid th Auto (RBC) [Ratio]on 02-12-2025 Erythrocyte distribution width (RBC) [Ratio] Erythrocyte distribution width [Ratio] by Automated count 11.0-15.0 [facility] Estimated glomerular filtrat ion rate (GFR) non- Americanon 02-12-2025 GFR/1.73 sq M.predicted among non-blacks MDRD (S/P/Bld) [Vol rate/Area] Estimated glomerular filtration rate (GFR) non- Low >=60 mL/min/1.7 2 [facility] Hematocrit Auto (Bld) [Volum e fraction]on 02-12-2025 Hematocrit (Bld) [Volume fraction] Hematocrit [Volume Fraction] of Blood by Automated count 36.0-48.0 [facility] Hemoglobin [Mass/volume] in Bloodon 02-12-2025 Hemoglobin (Bld) [Mass/Vol] Hemoglobin [Mass/volume] in Blood 12.0-16.0 [facility] Iron binding capacity [Mass/ volume] in Serum or Plasmaon 02-12-2025 Iron binding capacity [Mass/Vol] Iron binding capacity [Mass/volume] in Serum or Plasma 250.0-450. 0 [facility] Iron saturation [Mass Fracti on] in Serum or Plasmaon 02-12-2025 Iron saturation [Mass fraction] Iron saturation [Mass Fraction] in Serum or Plasma [facility] Laboratory - Chemistry and C hemistry - challengeon 02-12-2025 Albumin [Mass/Vol] 3.3 g/dL Low 3.4-5.0 [facility] Calcium [Mass/Vol] 8.6 mg/dL 8.5-10.1 [facility] Chloride [Moles/Vol] 107 mmol/L 98-107 [facility] CO2 [Moles/Vol] 21.1 mmol/L 21.0-32.0 [facility] Creatinine [Mass/Vol] 1.94 mg/dL High 0.55-1.02 [facility] Ferritin [Mass/Vol] 62.0 ng/mL 8.0-252.0 [facility] GFR/1.73 sq M.predicted MDRD (S/P/Bld) [Vol rate/Area] 31 mL/min/{1.73_m2} Low >=60 mL/min/1.7 2 [facility] Glucose [Mass/Vol] 117 mg/dL High 74-106 [facility] Iron [Mass/Vol] 75.0 ug/dL 50.0-170.0 [facility] Magnesium [Mass/Vol] 2.0 mg/dL 1.8-2.4 [facility] Potassium [Moles/Vol] 4.6 mmol/L 3.5-5.1 [facility] Sodium [Moles/Vol] 141 mmol/L 136-145 [facility] Urate [Mass/Vol] 5.0 mg/dL 2.6-6.0 [facility] Urea nitrogen [Mass/Vol] 27.0 mg/dL High 7.0-18.0 [facility] Urea nitrogen/Creatinine [Mass ratio] 13.9 mg/mg [facility] Laboratory - Urinalysison Protein (U) [Mass/Vol] 24.6 mg/dL High <=11.9 [facility] Leukocytes [#/volume] correc tanesha for nucleated erythrocytes in Blood by Automated counon 02-12-2025 WBC corrected for nucl RBC Auto (Bld) [#/Vol] Leukocytes [#/volume] corrected for nucleated erythrocytes in Blood by Automated coun 4.0-11.0 [facility] MCH Auto (RBC) [Entitic mass ]on 02-12-2025 MCH (RBC) [Entitic mass] MCH [Entitic mass] by Automated count 26.7-34.0 [facility] MCHC Auto (RBC) [Mass/Vol]on 02-12-2025 MCHC (RBC) [Mass/Vol] MCHC [Mass/volume] by Automated count 29.9-35.2 [facility] MCV Auto (RBC) [Entitic vol] on 02-12-2025 MCV (RBC) [Entitic vol] MCV [Entitic vol ume] by Automated count 81.0-99.0 [facility] No Panel Informationon 02-12 25-Hydroxy Vitamin D Total 36.0 ng/mL [facility] Comment on above: <20 ng/mL Vit D defi cient20-<30 ng/mL Vit D [id number] ng/mL Vit D sufficient>100 ng/mL Potential Toxicity Parathyroid Hormone (Intact) 141 pg/mL Abnormal 15-65 [facility] Comment on above: Performed at: [address] [id number] Director: Junaid Sawyer PhD, Phone: [phone] Phosphorus Level 3.5 mg/dL 2.6-4.7 [facility] Urine Random Creatinine 127.82 mg/dL 20.0 0-300. 00 [facility] Platelet mean volume Auto (B ld) [Entitic vol]on 02-12-2025 Platelet mean volume (Bld) [Entitic vol] Platelet mean volume [Entitic volume] in Blood by Automated count 9.5-13.5 [facility] Platelets Auto (Bld) [#/Vol] on 02-12-2025 Platelets (Bld) [#/Vol] Platelets [#/vol ume] in Blood by Automated count 150-450 [facility] RBC Auto (Bld) [#/Vol]on RBC (Bld) [#/Vol] Erythrocytes [#/volu me] in Blood by Automated count Low 4.20-5.40 [facility] Serum or plasma anion gap de terminationon 02-12-2025 Anion gap [Moles/Vol] Serum or plasma an ion gap determination [facility] Urine protein/creatinine rat ioon 02-12-2025 Protein/Creatinine (U) [Ratio] Urine protein/creatinine ratio [facility] CNOVon 01-05-2025 CNOV Office Visit (LANAFV ) -- CASSI RODRIGEZ ([id number]) 1950 F Date Time Provider Department 01/05/25 12:00 PM SVITLANA MAYFIELD During your visit today, we recorded the following information about you: Pulse Blood pressure Weight Height 86/minute 127/61 86.7 kg 1.575 m Svitlana Mayfield, CONNIE.STRATEGY MANAGER 01/05/2025 12:15 PM Signed Follow-Up Onabotulinum [...] for migraine Informed Consent Consent Obtained: Written [place] Protocol A moment to CARE was completed [...] applicable Written Consent Obtained: Written LOT #: [id number] Expiration Date: Month: Year: 2026 Second vial: LOT #: [id number] Expiration Date: Month: Year: 2026 Injection Sites Left (Units) Left (Sites) Right (Units) Right (Sites) TOTAL (Units) Work Force Advisor 5 1 5 1 10 Procerus Units: [...] migraine pr (more content not included)... Normal [facility] CNOVon 01-04-2025 CNOV Office Visit (NEEPFV ) -- CASSI RODRIGEZ ([id number]) 1950 F Date Time Provider Department 01/04/25 2:00 PM ALEJANDRO VILLAR NEEPFV During your visit today, we recorded the following information about you: Pulse Blood pressure Weight Height 86/minute 127/61 87 kg 1.575 m Alejandro Villar MD, PhD 01/04/2025 2:17 PM Signed [facility] Patient Name: Cassi Rodrigez Date of : 1950 ESTABLISHED EPILEPSY CLINIC NOTE 01/04/2025 2:00 PM Reason for Visit: Follow Up Clinical Summary: Ms. Rodrigez is a 74 year old right-handed female seen in [facility]. 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 Normal [facility] Alanine aminotransferase [En zymatic activity/volume] in Serum or PlasmaOrdered By: Kristel Low on 11-24-2024 ALT [Catalytic activity/Vol] Alanine aminotransferase [Enzymatic activity/volume] in Serum or Plasma 7-52 [facility] Albumin [Mass/volume] in Ser um or Plasma by Bromocresol green (BCG) dye binding methoOrdered By: Kristel Low on 11-24-2024 Albumin BCG dye [Mass/Vol] Albumin [Mass/volume] in Serum or Plasma by Bromocresol green (BCG) dye binding metho 3.5-5.7 [facility] Alkaline phosphatase [Enzyma tic activity/volume] in Serum or PlasmaOrdered By: Kristel Low on 11-24-2024 ALP [Catalytic activity/Vol] Alkaline phosphatase [Enzymatic activity/volume] in Serum or Plasma High 34-104 [facility] Appearance of UrineOrdered B y: Kristel Low on 11-24-2024 Appearance (U) Urine appearance Clear [facility] Aspartate aminotransferase [ Enzymatic activity/volume] in Serum or PlasmaOrdered By: Kristel Low on 11-24-2024 AST [Catalytic activity/Vol] Aspartate aminotransferase [Enzymatic activity/volume] in Serum or Plasma Low 13-39 [facility] Bacteria [Presence] in Urine by AutomatedOrdered By: Kristel Low on 11-24-2024 Bacteria Auto Ql (U) Bacteria [Presence] in Urine by Automated None Seen [facility] Basophils Auto (Bld) [#/Vol] Ordered By: Kristel Low on 11-24-2024 Basophils (Bld) [#/Vol] Automated basophil count 0.0-0.2 [facility] Basophils/100 WBC Auto (Bld) Ordered By: Kristel Low on 11-24-2024 Basophils/100 WBC (Bld) Automated basophil % . [facility] Bilirubin Test strip Ql (U)O rdered By: Kristel Low on 11-24-2024 Bilirubin Ql (U) Bilirubin.total [Pre sence] in Urine by Test strip Negative [facility] Bilirubin.total [Mass/volume ] in Serum or PlasmaOrdered By: Kristel Low on 11-24-2024 Bilirubin [Mass/Vol] Bilirubin.total [Mass/volume] in Serum or Plasma 0.3-1.0 [facility] Blood Cultureon 11-24-2024 Bacteria identified Cx Nom (Bld) NO GROWTH 5 DAYS PERFORMED BY: [facility] [address] [place] [address] PATHOLOGIST RN CCU LEON MA M.D. Normal [facility] Comment on above: Performed By: #### C MP, PT, PTT, CUBLD, LACTIC, LIPASE, CBC ####[facility] [id number] [place] [address] [facility] Bacteria identified Cx Nom (Bld) NO GROWTH 5 DAYS PERFORMED BY: [facility] [address] [place] [address] PATHOLOGIST RN CCU LEON MA M.D. Normal [facility] Comment on above: Performed By: #### C MP, PT, PTT, CUBLD, LACTIC, LIPASE, CBC #### [facility] [address] [place] [id number] [facility] CT abdomen pelvis wo conon 0 11-24-2024 CT abdomen pelvis wo con [facility] Main [place] [address] [place] [address] CT Scan Report Signed Patient: Cassi Rodrigez MR#: [id number] 8 : 1950 Acct:[id number] Age/Sex: 74 / F ADM Date: 11/24/24 Loc: ER Room: Type: [facility] ER Attending Dr: Copies to: Kristel [...] Arnel Simon M.D.11/24/2024 3:48 PM Dictation Location: [place] [address] Transcribed By: [facility] 11/24/24 1548 Dictated By: Arnel Simon II, MD 11/24/24 1538 Signed By: 11/24/24 1548 Normal [facility] Calcium [Mass/volume] in Ser um or PlasmaOrdered By: Kristel Low on 11-24-2024 Calcium [Mass/Vol] Calcium [Mass/volume ] in Serum or Plasma Low 8.6-10.3 [facility] Carbon dioxide, total [Moles /volume] in Serum or PlasmaOrdered By: Kristel Low on 11-24-2024 CO2 [Moles/Vol] Carbon dioxide, tota l [Moles/volume] in Serum or Plasma 21.0-31.0 [facility] Chloride [Moles/volume] in S akila or PlasmaOrdered By: Kristel Low on 11-24-2024 Chloride [Moles/Vol] Chloride [Moles/vol ume] in Serum or Plasma High 98-107 [facility] Color Auto (U)Ordered By: Oly Low on 11-24-2024 Color (U) Color of Urine by Auto Yellow Fi [facility] Complete Blood Count Auto Di ffon 11-24-2024 Basophils (Bld) [#/Vol] 0.0 10*3/uL Normal 0.0-0.2 [facility] Comment on above: Result Comment: PERF ORMED BY: [facility] [address] [place] [address] PATHOLOGIST RN CCU LEON MA M.D. Performed By: #### C MP, PT, PTT, CUBLD, LACTIC, LIPASE, CBC #### [address] Basophils/100 WBC (Bld) 0.5 % Normal . Galo alas [facility] Comment on above: Performed By: #### C MP, PT, PTT, CUBLD, LACTIC, LIPASE, CBC #### [address] Eosinophils (Bld) [#/Vol] 0.3 10*3/uL Normal 0.0-0.45 [facility] Comment on above: Performed By: #### C MP, PT, PTT, CUBLD, LACTIC, LIPASE, CBC #### [address] Eosinophils/100 WBC (Bld) 5.9 % Normal . [facility] Comment on above: Performed By: #### C MP, PT, PTT, CUBLD, LACTIC, LIPASE, CBC #### [address] Erythrocyte distribution width (RBC) [Ratio] 14.2 % Normal 11.9-15.3 [facility] Comment on above: Performed By: #### C MP, PT, PTT, CUBLD, LACTIC, LIPASE, CBC #### [address] Hematocrit (Bld) [Volume fraction] 28.7 % Low 34.0-46.4 [facility] Comment on above: Performed By: #### C MP, PT, PTT, CUBLD, LACTIC, LIPASE, CBC #### [address] Hemoglobin (Bld) [Mass/Vol] 9.7 g/dL Low 11.8-15.4 [facility] Comment on above: Performed By: #### C MP, PT, PTT, CUBLD, LACTIC, LIPASE, CBC #### [address] Lymphocytes (Bld) [#/Vol] 0.7 10*3/uL Low 1.00-4.8 [facility] Comment on above: Performed By: #### C MP, PT, PTT, CUBLD, LACTIC, LIPASE, CBC #### [address] [address] Lymphocytes/100 WBC (Bld) 13.8 % Normal . [facility] Comment on above: Performed By: #### C MP, PT, PTT, CUBLD, LACTIC, LIPASE, CBC #### [address] MCH (RBC) [Entitic mass] 32.2 pg Normal 24.7-34.3 [facility] Comment on above: Performed By: #### C MP, PT, PTT, CUBLD, LACTIC, LIPASE, CBC #### [address] MCV (RBC) [Entitic vol] 95.4 fL Normal 80-100 [facility] Comment on above: Performed By: #### C MP, PT, PTT, CUBLD, LACTIC, LIPASE, CBC #### [address] Mean Corpuscular HGB Conc 33.8 g/dL Normal 32.0-35.0 [facility] Comment on above: Performed By: #### C MP, PT, PTT, CUBLD, LACTIC, LIPASE, CBC #### [address] Monocytes (Bld) [#/Vol] 0.4 10*3/uL Normal 0.0-0.8 [facility] Comment on above: Performed By: #### C MP, PT, PTT, CUBLD, LACTIC, LIPASE, CBC #### [address] Monocytes/100 WBC (Bld) 19.31 % Normal 0.00-20.00 [facility] Comment on above: Performed By: #### C MP, PT, PTT, CUBLD, LACTIC, LIPASE, CBC #### [address] Monocytes/100 WBC (Bld) 7.8 % Normal . [facility] Comment on above: Performed By: #### C MP, PT, PTT, CUBLD, LACTIC, LIPASE, CBC #### [address] Neutrophils (Bld) [#/Vol] 3.7 10*3/uL Normal 1.8-7.7 [facility] Comment on above: Performed By: #### C MP, PT, PTT, CUBLD, LACTIC, LIPASE, CBC #### [address] Neutrophils/100 WBC (Bld) 72.0 % Normal . [facility] Comment on above: Performed By: #### C MP, PT, PTT, CUBLD, LACTIC, LIPASE, CBC #### [address] NRBC% 0.1 /100{WBC} Normal 0-0.5 [facility] Comment on above: Performed By: #### C MP, PT, PTT, CUBLD, LACTIC, LIPASE, CBC #### [address] Platelet mean volume (Bld) [Entitic vol] 7.2 fL Normal 6.3-10.7 [facility] Comment on above: Performed By: #### C MP, PT, PTT, CUBLD, LACTIC, LIPASE, CBC #### [address] Platelets (Bld) [#/Vol] 286 10*3/uL Normal 150-450 [facility] Comment on above: Performed By: #### C MP, PT, PTT, CUBLD, LACTIC, LIPASE, CBC #### [place] [address] [place] RBC (Bld) [#/Vol] 3.01 10*6/uL Low 3.60-5.00 [facility] Comment on above: Performed By: #### C MP, PT, PTT, CUBLD, LACTIC, LIPASE, CBC #### [address] WBC (Bld) [#/Vol] 5.1 10*3/uL Normal 3.8-11.6 [facility] Comment on above: Performed By: #### C MP, PT, PTT, CUBLD, LACTIC, LIPASE, CBC #### [address] Comprehensive Metabolic Pane daisha 11-24-2024 Albumin [Mass/Vol] 3.6 g/dL Normal 3.5-5.7 [facility] Comment on above: Performed By: #### C MP, PT, PTT, CUBLD, LACTIC, LIPASE, CBC #### [address] Albumin/Globulin [Mass ratio] 1.4 {ratio} Normal [facility] Comment on above: Performed By: #### C MP, PT, PTT, CUBLD, LACTIC, LIPASE, CBC #### [address] ALP [Catalytic activity/Vol] 174 U/L High 34-104 [facility] Comment on above: Performed By: #### C MP, PT, PTT, CUBLD, LACTIC, LIPASE, CBC #### [address] ALT [Catalytic activity/Vol] 8 U/L Normal 7-52 [facility] Comment on above: Performed By: #### C MP, PT, PTT, CUBLD, LACTIC, LIPASE, CBC #### [address] Anion gap [Moles/Vol] 9.7 mmol/L Normal 6.0-15.0 [facility] Comment on above: Performed By: #### C MP, PT, PTT, CUBLD, LACTIC, LIPASE, CBC #### [address] AST [Catalytic activity/Vol] 12 U/L Low 13-39 [facility] Comment on above: Performed By: #### C MP, PT, PTT, CUBLD, LACTIC, LIPASE, CBC #### [address] Bilirubin [Mass/Vol] 0.7 mg/dL Normal 0.3-1.0 [facility] Comment on above: Performed By: #### C MP, PT, PTT, CUBLD, LACTIC, LIPASE, CBC #### [address] Calcium [Mass/Vol] 8.5 mg/dL Low 8.6-10.3 [facility] Comment on above: Performed By: #### C MP, PT, PTT, CUBLD, LACTIC, LIPASE, CBC #### [address] Chloride [Moles/Vol] 111 mmol/L High 98-107 [facility] Comment on above: Performed By: #### C MP, PT, PTT, CUBLD, LACTIC, LIPASE, CBC #### [address] CO2 [Moles/Vol] 23.6 mmol/L Normal 21.0-31.0 [facility] Comment on above: Performed By: #### C MP, PT, PTT, CUBLD, LACTIC, LIPASE, CBC #### [address] Creatinine [Mass/Vol] 1.66 mg/dL High 0.60-1.20 [facility] Comment on above: Performed By: #### C MP, PT, PTT, CUBLD, LACTIC, LIPASE, CBC #### [address] Creatinine Clr Calc Pharmacy 30.82 Normal [facility] Comment on above: Performed By: #### C MP, PT, PTT, CUBLD, LACTIC, LIPASE, CBC #### [address] Estimated GFR 32.179 mL/Min Normal [facility] Comment on above: Performed By: #### C MP, PT, PTT, CUBLD, LACTIC, LIPASE, CBC #### [address] Globulin (S) [Mass/Vol] 2.6 g/dL Normal T [facility] Comment on above: Performed By: #### C MP, PT, PTT, CUBLD, LACTIC, LIPASE, CBC #### [address] Glucose [Mass/Vol] 99 mg/dL Normal 70-100 [facility] Comment on above: Result Comment: [facility] Glucose Reference Range is dependent on time and content of last meal. Glucose of more than 200 mg/dL in a nonstressed, ambulatory subject supports the diagnosis of Diabetes Mellitus. ADA recommended reference range Performed By: #### C MP, PT, PTT, CUBLD, LACTIC, LIPASE, CBC #### [address] Potassium [Moles/Vol] 4.3 mmol/L Normal 3.5-5.1 [facility] Comment on above: Performed By: #### C MP, PT, PTT, CUBLD, LACTIC, LIPASE, CBC #### [address] Protein [Mass/Vol] 6.2 g/dL Low 6.4-8.9 [facility] Comment on above: Performed By: #### C MP, PT, PTT, CUBLD, LACTIC, LIPASE, CBC #### [address] Sodium [Moles/Vol] 140 mmol/L Normal 136-145 [facility] Comment on above: Performed By: #### C MP, PT, PTT, CUBLD, LACTIC, LIPASE, CBC #### [address] Urea nitrogen [Mass/Vol] 24 mg/dL Normal 7-25 [facility] Comment on above: Performed By: #### C MP, PT, PTT, CUBLD, LACTIC, LIPASE, CBC #### [address] Creatinine [Mass/volume] in Serum or PlasmaOrdered By: Kristel Low on 11-24-2024 Creatinine [Mass/Vol] Creatinine [Mass/v olume] in Serum or Plasma High 0.60-1.20 [facility] Dipstick and Microscopicon 0 11-24-2024 Appearance (U) Clear Normal Clear [facility] Comment on above: Order Comment: Name Collection Type:: Clean-Voided Midstream Performed By: #### A DDONUAPLUS #### [address] Bacteria,Urine None Seen Normal None Seen [facility] Comment on above: Order Comment: Name Collection Type:: Clean-Voided Midstream Performed By: #### A DDONUAPLUS #### [place] [address] [place] Bilirubin,Urine Negative Normal Negative [facility] Comment on above: Order Comment: Name Collection Type:: Clean-Voided Midstream Performed By: #### A DDONUAPLUS #### [address] Color (U) Light-Yellow Normal Yellow [facility] Comment on above: Order Comment: Name Collection Type:: Clean-Voided Midstream Performed By: #### A DDONUAPLUS #### [address] Glucose Ql (U) Normal Normal Normal [facility] Comment on above: Order Comment: Name Collection Type:: Clean-Voided Midstream Performed By: #### A DDONUAPLUS #### [place] [address] [place] Hyaline Casts,Urine 0 [LPF] Normal 0-8 [facility] Comment on above: Order Comment: Name Collection Type:: Clean-Voided Midstream Performed By: #### A DDONUAPLUS #### [place] [address] [place] Ketones Ql (U) Negative Normal Negative [facility] Comment on above: Order Comment: Name Collection Type:: Clean-Voided Midstream Performed By: #### A DDONUAPLUS #### [address] Leukocyte esterase Test strip Ql (U) 1+ High Negative [facility] Comment on above: Order Comment: Name Collection Type:: Clean-Voided Midstream Performed By: #### A DDONUAPLUS #### [place] [address] [place] Mucus,Urine Rare Normal [facility] Comment on above: Order Comment: Name Collection Type:: Clean-Voided Midstream Result Comment: PERF ORMED BY: [place] [address] PATHOLOGIST RN CCU LEON MA M.D. Performed By: #### A DDONUAPLUS #### [address] Nitrite,Urine Negative Normal Negative [facility] Comment on above: Order Comment: Name Collection Type:: Clean-Voided Midstream Performed By: #### A DDONUAPLUS #### [address] Occult Blood,Urine Negative Normal Negative [facility] Comment on above: Order Comment: Name Collection Type:: Clean-Voided Midstream Result Comment: PERF ORMED BY: [place] [address] PATHOLOGIST RN CCU LEON MA M.D. Performed By: #### A DDONUAPLUS #### [address] pH (U) 5.5 [pH] Normal 5.0-9.0 [facility] Comment on above: Order Comment: Name Collection Type:: Clean-Voided Midstream Performed By: #### A DDONUAPLUS #### [address] Protein,Urine Negative Normal Negative [facility] Comment on above: Order Comment: Name Collection Type:: Clean-Voided Midstream Performed By: #### A DDONUAPLUS #### [address] RBC,Urine 1 [HPF] Normal 0-4 [facility] Comment on above: Order Comment: Name Collection Type:: Clean-Voided Midstream Performed By: #### A DDONUAPLUS #### [address] [place] [address] [place] Specificy [place],Urine 1.020 Normal 1.00 1-1.03 0 [facility] Comment on above: Order Comment: Name Collection Type:: Clean-Voided Midstream Performed By: #### A DDONUAPLUS #### [facility] [address] [place] [address] Squamous Epithelial Cell,Urine 3 [HPF] High 0-2 [facility] Comment on above: Order Comment: Name Collection Type:: Clean-Voided Midstream Performed By: #### A DDONUAPLUS #### [address] Urobilinogen,Urine Normal Normal Normal [facility] Comment on above: Order Comment: Name Collection Type:: Clean-Voided Midstream Performed By: #### A DDONUAPLUS #### [address] WBC,Urine 1 [HPF] Normal 0-4 [facility] Comment on above: Order Comment: Name Collection Type:: Clean-Voided Midstream Performed By: #### A DDONUAPLUS #### [address] Eosinophils Auto (Bld) [#/Vo l]Ordered By: Kristel Low on 11-24-2024 Eosinophils (Bld) [#/Vol] Automated eosinophil count 0.0-0.45 [facility] Eosinophils/100 WBC Auto (Bl d)Ordered By: Kristel Low on 11-24-2024 Eosinophils/100 WBC (Bld) Automated eosinophil % . [facility] Epithelial cells.squamous [# /area] in Urine sediment by Automated countOrdered By: Kristel Low on 11-24-2024 Epithelial cells.squamous Auto (Urine sed) [#/Area] Epithelial cells.squamous [#/area] in Urine sediment by Automated count High 0-2 [facility] Erythrocyte distribution wid th Auto (RBC) [Ratio]Ordered By: Kristel Low on 11-24-2024 Erythrocyte distribution width (RBC) [Ratio] Erythrocyte distribution width [Ratio] by Automated count 11.9-15.3 [facility] Erythrocytes [#/area] in Uri ne sediment by Automated countOrdered By: Kristel Low on 11-24-2024 RBC Auto (Urine sed) [#/Area] Erythrocytes [#/area] in Urine sediment by Automated count 0-4 [facility] Globulin Calc (S) [Mass/Vol] Ordered By: Kristel Low on 11-24-2024 Globulin (S) [Mass/Vol] Serum globulin m easurement by calculation (mass/volume) [facility] Glucose [Mass/volume] in Ser um or PlasmaOrdered By: Kristel Low on 11-24-2024 Glucose [Mass/Vol] Glucose [Mass/volume ] in Serum or Plasma 70-100 [facility] [...] [Mass/volume] in Urine by Test strip Normal [facility] Hematocrit Auto (Bld) [Volum e fraction]Ordered By: Kristel Low on 11-24-2024 Hematocrit (Bld) [Volume fraction] Hematocrit [Volume Fraction] of Blood by Automated count Low 34.0-46.4 [facility] Hemoglobin Test strip Ql (U) Ordered By: Kristel Low on 11-24-2024 Hemoglobin Ql (U) Hemoglobin [Presence ] in Urine by Test strip Negative [facility] Hemoglobin [Mass/volume] in BloodOrdered By: Kristel Low on 11-24-2024 Hemoglobin (Bld) [Mass/Vol] Hemoglobin [Mass/volume] in Blood Low 11.8-15.4 [facility] Hyaline casts [#/area] in Ur ine sediment by Automated countOrdered By: Kristel Low on 11-24-2024 Hyaline casts Auto (Urine sed) [#/Area] Hyaline casts [#/area] in Urine sediment by Automated count 0-8 [facility] INR in Platelet poor plasma by Coagulation assayOrdered By: Kristel Low on 11-24-2024 INR Coag (PPP) [Relative time] INR in Platelet poor plasma by Coagulation assay [facility] Comment on above: INR Therapeutic Rang e [...] i n Urine by Test strip Negative [facility] Laboratory - Microbiology an d Antimicrobial susceptibilityOrdered By: Kristel Low on 11-24-2024 Bacteria identified Cx Nom (Bld) NO GROWTH 5 DAYS [facility] Bacteria identified Cx Nom (Bld) NO GROWTH 5 DAYS [facility] Bacteria identified Cx Nom (Bld) NO GROWTH 5 DAYS [facility] Bacteria identified Cx Nom (Bld) NO GROWTH 5 DAYS [facility] Lactate [Moles/volume] in Se rum or PlasmaOrdered By: Kristel Low on 11-24-2024 Lactate [Moles/Vol] Lactate [Moles/volum e] in Serum or Plasma 0.5-2.2 [facility] Lactic Acidon 11-24-2024 Lactate [Moles/Vol] 0.8 mmol/L Normal 0.5-2.2 [facility] Comment on above: Result Comment: PERF ORMED BY: [facility] [address] [place] [address] PATHOLOGIST RN CCU LEON MA M.D. Performed By: #### C MP, PT, PTT, CUBLD, LACTIC, LIPASE, CBC #### [address] Leukocyte esterase [Presence ] in Urine by Test stripOrdered By: Kristel Low on 11-24-2024 Leukocyte esterase Test strip Ql (U) Leukocyte esterase [Presence] in Urine by Test strip High Negative [facility] Leukocytes [#/area] in Urine sediment by Automated countOrdered By: Kristel Low on 11-24-2024 WBC Auto (Urine sed) [#/Area] Leukocytes [#/area] in Urine sediment by Automated count 0-4 [facility] Leukocytes [#/volume] correc tanesha for nucleated erythrocytes in Blood by Automated counOrdered By: Kristel Low on 11-24-2024 WBC corrected for nucl RBC Auto (Bld) [#/Vol] Leukocytes [#/volume] corrected for nucleated erythrocytes in Blood by Automated coun 3.8-11.6 [facility] Lipaseon 11-24-2024 Lipase [Catalytic activity/Vol] 10.0 U/L Low 11.0-82.0 [facility] Comment on above: Result Comment: PERF ORMED BY: [place] [address] PATHOLOGIST RN CCU LEON MA M.D. Performed By: #### C MP, PT, PTT, CUBLD, LACTIC, LIPASE, CBC #### [address] Lipase [Enzymatic activity/v olume] in Serum or PlasmaOrdered By: Kristel Low on 11-24-2024 Lipase [Catalytic activity/Vol] Lipase [Enzymatic activity/volume] in Serum or Plasma Low 11.0-82.0 [facility] Lymphocytes Auto (Bld) [#/Vo l]Ordered By: Kristel Low on 11-24-2024 Lymphocytes (Bld) [#/Vol] Lymphocytes [#/volume] in Blood by Automated count Low 1.00-4.8 [facility] Lymphocytes/100 WBC Auto (Bl d)Ordered By: Kristel Low on 11-24-2024 Lymphocytes/100 WBC (Bld) Lymphocytes/100 leukocytes in Blood by Automated count . [facility] MCH Auto (RBC) [Entitic mass ]Ordered By: Kristel Low on 11-24-2024 MCH (RBC) [Entitic mass] MCH [Entitic mass] by Automated count 24.7-34.3 [facility] MCHC Auto (RBC) [Mass/Vol]Or dered By: Kristel Low on 11-24-2024 MCHC (RBC) [Mass/Vol] MCHC [Mass/volume] by Automated count 32.0-35.0 [facility] MCV Auto (RBC) [Entitic vol] Ordered By: Kristel Low on 11-24-2024 MCV (RBC) [Entitic vol] MCV [Entitic vol ume] by Automated count 80-100 [facility] Monocyte distribution width [Entitic volume] in Blood by AutomatedOrdered By: Kristel Low on 11-24-2024 Monocyte distribution width Auto (Bld) [Entitic vol] Monocyte distribution width [Entitic volume] in Blood by Automated 0.00-20.00 [facility] Monocytes Auto (Bld) [#/Vol] Ordered By: Kristel Low on 11-24-2024 Monocytes (Bld) [#/Vol] Automated blood monocyte count 0.0-0.8 [facility] Monocytes/100 WBC Auto (Bld) Ordered By: Kristel Low on 11-24-2024 Monocytes/100 WBC (Bld) Automated monocyte % . [facility] Mucus [Presence] in Urine by AutomatedOrdered By: Kristel Low on 11-24-2024 Mucus Auto Ql (U) Mucus [Presence] in Urine by Automated [facility] Neutrophils Auto (Bld) [#/Vo l]Ordered By: Kristel Low on 11-24-2024 Neutrophils (Bld) [#/Vol] Neutrophils [#/volume] in Blood by Automated count 1.8-7.7 [facility] Neutrophils/100 WBC Auto (Bl d)Ordered By: Kristel Low on 11-24-2024 Neutrophils/100 WBC (Bld) Automated neutrophil % . [facility] Nitrite Test strip Ql (U)Ord ered By: Kristel Low on 11-24-2024 Nitrite Ql (U) Nitrite [Presence] i n Urine by Test strip Negative [facility] No Panel InformationOrdered By: Kristel Low on 11-24-2024 Estimated GFR (CKD-EPI) 32.179 mL/Min [facility] Creatinine Clearance (Chem 30.82 [facility] Nucleated erythrocytes [Pres ence] in Blood by Automated countOrdered By: Kristel Low on 11-24-2024 Nucleated RBC Auto Ql (Bld) Nucleated erythrocytes [Presence] in Blood by Automated count 0-0.5 [facility] Partial Thromboplastin Timeo n 11-24-2024 aPTT Coag (Bld) [Time] 33.5 s Normal 25.1-36.5 [facility] Comment on above: Result Comment: A he matocrit value greater than 55% may lead to inaccurate results in coagulation testing. Patients having hematocrit values >55% require a special collection tube for coagulation studies. Please contact the laboratory at [phone] for redraw instructions. PERFORMED BY: [place] [address] PATHOLOGIST RN CCU LEON MA M.D. Performed By: #### C MP, PT, PTT, CUBLD, LACTIC, LIPASE, CBC #### [address] Platelet mean volume Auto (B ld) [Entitic vol]Ordered By: Kristel Low on 11-24-2024 Platelet mean volume (Bld) [Entitic vol] Platelet mean volume [Entitic volume] in Blood by Automated count 6.3-10.7 [facility] Platelets Auto (Bld) [#/Vol] Ordered By: Kristel Low on 11-24-2024 Platelets (Bld) [#/Vol] Platelets [#/vol ume] in Blood by Automated count 150-450 [facility] Potassium [Moles/volume] in Serum or PlasmaOrdered By: Kristel Low on 11-24-2024 Potassium [Moles/Vol] Potassium [Moles/v olume] in Serum or Plasma 3.5-5.1 [facility] Protein Test strip (U) [Mass /Vol]Ordered By: Kristel Low on 11-24-2024 Protein (U) [Mass/Vol] Protein [Mass/vol ume] in Urine by Test strip Negative [facility] Protein [Mass/volume] in Ser um or PlasmaOrdered By: Kristel Low on 11-24-2024 Protein [Mass/Vol] Protein [Mass/volume ] in Serum or Plasma Low 6.4-8.9 [facility] Prothrombin Time INRon 11-24 INR Coag (PPP) [Relative time] 2.0 {INR} Normal [facility] Comment on above: Result [...] PT, PTT, CUBLD, LACTIC, LIPASE, CBC #### [facility] [address] PT Coag (PPP) [Time] 22.8 s High 9.0-12.9 [facility] Comment on above: Result Comment: A he matocrit value greater than 55% may lead to inaccurate results in coagulation testing. Patients having hematocrit values >55% require a special collection tube for coagulation studies. Please contact the laboratory at [phone] for redraw instructions. Performed By: #### C MP, PT, PTT, CUBLD, LACTIC, LIPASE, CBC #### [facility] [address] Prothrombin time (PT)Ordered By: Kristel Low on 11-24-2024 PT Coag (PPP) [Time] Prothrombin time (PT) High 9.0- 12.9 [facility] Comment on above: A hematocrit value g reater than 55% may lead to inaccurate results in coagulation testing. Patients having hematocrit values >55% require a special collection tube for coagulation studies. Please contact the laboratory at [phone] for redraw instructions. RBC Auto (Bld) [#/Vol]Ordere d By: Kristel Low on 11-24-2024 RBC (Bld) [#/Vol] Erythrocytes [#/volu me] in Blood by Automated count Low 3.60-5.00 [facility] Serum or plasma albumin/glob ulin mass ratioOrdered By: Kristel Low on 11-24-2024 Albumin/Globulin [Mass ratio] Serum or plasma albumin/globulin mass ratio [facility] Serum or plasma anion gap de terminationOrdered By: Kristel Low on 11-24-2024 Anion gap [Moles/Vol] Serum or plasma an ion gap determination 6.0-15.0 [facility] Sodium [Moles/volume] in Ser um or PlasmaOrdered By: Kristel Low on 11-24-2024 Sodium [Moles/Vol] Sodium [Moles/volume ] in Serum or Plasma 136-145 [facility] Specific gravity Test strip (U) [Rel density]Ordered By: Kristel Low on 11-24-2024 Specific gravity (U) [Rel density] Specific gravity of Urine by Test strip 1.001-1.03 0 [facility] Urea nitrogen [Mass/volume] in Serum or PlasmaOrdered By: Kristel Low 11-24-2024 Urea nitrogen [Mass/Vol] Urea nitrogen [Mass/volume] in Serum or Plasma 7-25 [facility] Urobilinogen Test strip (U) [Mass/Vol]Ordered By: Kristel Low 11-24-2024 Urobilinogen (U) [Mass/Vol] Urobilinogen [Mass/volume] in Urine by Test strip Normal [facility] WBC Auto (Bld) [#/Vol]Ordere d By: Kristel Low 11-24-2024 WBC (Bld) [#/Vol] Leukocytes [#/volume ] in Blood by Automated count 3.8-11.6 [facility] aPTT in Platelet poor plasma by Coagulation assayOrdered By: Kristel Low 11-24-2024 aPTT Coag (PPP) [Time] Activated partial thromboplastin time (aPTT) in platelet poor plasma by coagulation a 25.1-36.5 [facility] Comment on above: A hematocrit value g reater than 55% may lead to inaccurate results in coagulation testing. Patients having hematocrit values >55% require a special collection tube for coagulation studies. Please contact the laboratory at [phone] for redraw instructions. pH Test strip (U)Ordered By: Kristel Low on 11-24-2024 pH (U) pH of Urine by Test strip 5.0-9.0 [facility] Ionized Calciumon 11-06-2024 Calcium.ionized ISE [Mass/Vol] 4.5 mg/dL Invalid Interpretation Code 4.5-5.6 [facility] Comment on above: Result Comment: Perf ormed at: CB [facility] [address] [id number] PhD Digna Quiroga Performed By: #### 2 [id number] #### [facility] Laboratory [address] [place] [address] Main OR Intraoperative Recor don 11-06-2024 Main OR Intraoperative Record Main OR Intraoperative Record IntraOp Document Type FT Summary Primary Physician: Shashi De Souza MD Finalized Date/Time: 11/06/24 08:14:44 Pt. Name: CASSI RODRIGEZ/Sex: 1950 Female Med Rec #: [id number] Physician: Shashi De Souza MD Financial #: [id number] Pt. Type: O Room/Bed: [place] [address] Admit/Disch: 11/02/24 10:13:03 - 11/03/24 15:25:00 Institution: [...] Role Performed CARLOS ALBERTO Surgeon - Primary Geology Associate - Primary Time In 11/02/24 14:07:00 11/02/24 [...] Katy Eastman Role Performed Scrub - Primary MANAGER SKILLED Improvement Intern Time In 11/02/24 14:07:00 11/02/24 14:07:00 11/02/24 14:07:00 Time Out 11/02/24 15:48:00 11/02/24 15:48:00 11/02/24 15:48:00 Procedure LUMBAR LAMINECTOMY LUMBAR LAMINECTOMY LUMBAR LAMINECTOMY POSS. FUSION(.) POSS. FUSION(.) POSS. FUSION(.) Comments Last Modified By: Renetta Melendez Kelsie E Burgderfer, Kelsie E 11/02/24 15:51:39 11/02/24 15:51:39 11/02/24 15:51:39 Entry 7 Entry 8 Case Attendee Jin Presley Ii, Robert David Role Performed Staff - Other Anesthesiologist Director Workforce Management Time In 11/02/24 14:07:00 11/02/24 14:53:00 Time [...] Given Participants Ap PAUL, Shashi Barragan, Renetta Melendze, Home Priest, Christal Perez, Katy William Time [...] Yes sciati (more content not included)... Normal [facility] BMPon 11-03-2024 Anion gap [Moles/Vol] 8 mmol/L Normal 6-16 [facility] Comment on above: Performed By: #### 2 [id number] #### [facility] Laboratory [address] [place] [address] Calcium [Mass/Vol] 8.0 mg/dL Low 8.9-11.1 [facility] Comment on above: Performed By: #### 2 [id number] #### [facility] Laboratory [address] [place] [address] Chloride [Moles/Vol] 110 mmol/L Normal 101-111 [facility] Comment on above: Performed By: #### 2 [id number] #### [facility] Laboratory [address] [place] [address] CO2 [Moles/Vol] 24 mmol/L Normal 21-31 [facility] Comment on above: Performed By: #### 2 [id number] #### [facility] Laboratory [address] [place] [address] Creatinine [Mass/Vol] 1.6 mg/dL High 0.5-1.3 [facility] Comment on above: Performed By: #### 2 [id number] #### [facility] Laboratory [address] [place] [address] Glucose [Mass/Vol] 106 mg/dL Normal 55-199 [facility] Comment on above: Performed By: #### 2 [id number] #### [facility] Laboratory [address] [facility] [place] [address] Potassium [Moles/Vol] 4.1 mmol/L Normal 3.5-5.3 [facility] Comment on above: Performed By: #### 2 [id number] #### [facility] Laboratory [address] [place] [address] Sodium [Moles/Vol] 138 mmol/L Normal 135-145 [facility] Comment on above: Performed By: #### 2 253063 #### [facility] Laboratory [address] [place] [address] Urea nitrogen [Mass/Vol] 20 mg/dL Normal 5-21 [facility] Comment on above: Performed By: #### 2 [id number] #### [facility] Laboratory [address] [place] [address] Urea nitrogen/Creatinine [Mass ratio] 12 No Units Normal 10-20 [facility] Comment on above: Performed By: #### 2 627211 #### [facility] Laboratory [address] [place] [address] CBC w/Indiceson 11-03-2024 Erythrocyte distribution width (RBC) [Ratio] 14.4 % High 10.9-14.2 [facility] Comment on above: Performed By: #### 2 [id number] #### [facility] Laboratory [address] [place] [address] Hematocrit (Bld) [Volume fraction] 35.4 % Normal 34.0-46.0 [facility] Comment on above: Performed By: #### 2 [id number] #### [facility] Laboratory [address] [place] [address] Hemoglobin (Bld) [Mass/Vol] 11.9 g/dL Low 12.0-16.0 [facility] Comment on above: Performed By: #### 2 066193 #### [facility] Laboratory [address] [place] [address] MCH (RBC) [Entitic mass] 31.9 pg Normal 27.0-34.0 [facility] Comment on above: Performed By: #### 2 828848 #### [facility] Laboratory [address] [place] [address] MCHC (RBC) [Mass/Vol] 33.7 g/dL Normal 31.4-36.0 [facility] Comment on above: Performed By: #### 2 [id number] #### [facility] [address] [place] [address] MCV (RBC) [Entitic vol] 94.5 fL Normal 80.0-100.0 [facility] Comment on above: Performed By: #### 2 691914 #### [facility] [address] [place] [address] Platelet mean volume (Bld) [Entitic vol] 7.4 fL Normal 6.4-10.8 [facility] Comment on above: Performed By: #### 2 024472 #### [facility] [address] [place] [address] Platelets (Bld) [#/Vol] 183.0 E9/L Normal 150. 0-500. 0 [facility] Comment on above: Performed By: #### 2 002826 #### [facility] [address] [place] [address] RBC (Bld) [#/Vol] 3.7 E12/L Low 4.3-5.9 [facility] Comment on above: Performed By: #### 2 [id number] #### [facility] Laboratory [address] [place] [address] RBC size Nom (Bld) NORMAL Invalid Interpretation Code [facility] Comment on above: Performed By: #### 2 [id number] #### [facility] Laboratory [address] [place] [address] WBC corrected for nucl RBC Auto (Bld) [#/Vol] 5.4 E9/L Normal 4.0-11.0 [facility] Comment on above: Performed By: #### 2 178645 #### [facility] Laboratory [address] [place] [address] CHEMISTRYOrdered By: SYSTEM SYSTEM on 11-03-2024 Anion [...] time unless symptoms worsen. Where: [address] [place] [address]- Business (1) Follow Up with Shashi De Souza When: Comments: f/u3wks ok shower and remove dressing [id number] no lift>5lbs keep incis dry clean. restart coumadin 3 days after surgery. 11-05-Wednesday. Where: [address] [facility], [address] [place] [phone] Business (1) Medications What How Much When Why Instructions Next Dose New acetaminophen-oxycodone (Percocet 5 mg-325 mg oral tablet) 1 Tablets By Mouth 3 times a day as needed for Pain 4-7 Lumbar stenosis Duration: [address] [facility]/pharmacy #[id number] as needed for pain Changed warfarin (warfarin [...] (at bedtime) 11/03 @ 9pm Pharmacy Information [facility]/pharmacy #[id number]: [address], [place] [phone] Test Results CBC BMP WBC: 5.4 E9/L [...] Education Materials (more content not included)... Normal [facility] HEMATOLOGYOrdered By: SYSTEM SYSTEM on 11-03-2024 Erythrocyte [...] Robb e Manageron 11-03-2024 Interdisciplinary Note - [employer]iver[employer]ender Interdisciplinary Note - Diver[employer] CRM to room 303 Patient is awake, [...] contact, white board updated. CRM following Normal [facility] Comment on above: Result Comment: Elec tronically Signed By: Christal Chapman\.br\Date and Time Signed: 11/03/24 10:51 EST Interdisciplinary Note - Gila n 11-03-2024 Interdisciplinary Note - OT Interdisciplinary Note - OT Ot [facility] six clicks score = no further OT needs. Patient is modified Ind w/ LE self care after instruction, Sup with transfers w/ fww. Pt has spouse support at home and will be safe to return home when medically stable. Pt has all necessary bathroom dme already in place. Normal [facility] Magnesiumon 11-03-2024 Magnesium [Mass/Vol] 1.8 mg/dL Normal 1.3-2.4 [facility] Comment on above: Performed By: #### 2 [id number] #### [facility] Laboratory [address] [place] [address] Phosphoruson 11-03-2024 Phosphate [Mass/Vol] 3.1 mg/dL Normal 1.9-4.6 [facility] Comment on above: Performed By: #### 2 912120 #### [facility] Laboratory [address] [place] [address] XR Spine Single View Specify Levelon 11-03-2024 [...] Signed by: Broderick Sunshine MD Transcribed by: CLINOTN Technologist: CHANTALE Technical Comments Radiation Dose: ted Sweeney in mGy = 23.48 DAP = na Fluoro Time: 26 seconds Normal [facility] eGFRon 11-03-2024 eGFR 33 mL/min/1.73 m2 Low >=59 [facility] Comment on above: Performed By: #### 1 [id number] #### [facility] Laboratory [address] [place] [address] ABO/Rhon 11-02-2024 ABO/Rh Positive Invalid Interpretation Code [facility] Comment on above: Performed By: #### 2 355175 #### [facility] Laboratory [address] [place] [address] ABO/Rh History Checkon 11-02 ABO/Rh History Check Verified Hx Blood Type Normal [facility] Comment on above: Performed By: #### 1 [id number] #### [facility] Laboratory [address] [place] [address] ABSCon 11-02-2024 ABSC Gel Interp Negative Normal [facility] Comment on above: Performed By: #### 1 [id number] #### [facility] Laboratory [address] [place] [address] BLOOD BANKOrdered By: Ericka Srinivasan on 11-02-2024 ABO/Rh Interp Positive Invalid Interpretation Code [facility] BB Subsection ABSC Gel Interp Negative (11/02/24 11:08 AM) Normal [facility] BB Subsection Blood Bank ID#on 11-02-2024 BBID# [id number] Invalid Interpretation Code [facility] Comment on above: Performed By: #### 1 [id number] #### [facility] [address] [place] [address] COAGULATIONOrdered By: Krish Srinivasan on 11-02-2024 aPTT Coag (PPP) [Time] 43.4 s High 25.1 - 36.5 second(s) [facility] Auto Coag Comment on above: Interpretive Data: [...] the same coagulation reagent and instrumentation as [facility]. Currently there are no coagulation studies available worldwide for children to 14 days, and no normal ranges. Heparin therapeutic range (represented by Anti-Factor Xa activity of 0.2 - 0.4 U/mL) corresponds to PTT of 56.6 - 109.0 sec. INR Coag (PPP) [Relative time] 1.26 {INR} Invalid Interpretation Code [facility] Auto Coag Comment on above: Interpretive Data: I NR results are specifically intended to assess patients stabilized on long-term Anticoagulation therapy suggested INR s Less Intensive Anticoagulation 2.0 3.0 Conventional Range 3.0 4.5 PT Coag (PPP) [Time] 14.1 s High 9.4 - 1 2.5 second(s) [facility] Auto Coag Comment on above: Interpretive Data: [...] the same coagulation reagent and instrumentation as [employer] [employer]. Currently there are no coagulation studies available worldwide for children to 14 days, and no normal ranges. Inpatient Patient Summaryon 11-02-2024 Inpatient Patient Summary Inpatient Patient Summary [address] [address] [facility] Clinical Discharge Instructions PERSON INFORMATION Name: CASSI RODRIGEZ PHYSICIANS Admitting Physician: Shashi De Souza MD Attending Physician: Shashi De Souza MD PCP: BRODERICK HOWARD DO Discharge Diagnosis: Comment: PATIENT EDUCATION INFORMATION Instructions: Medication Leaflets: Follow up: With: Address: When: Shashi De Souza [address] [facility], [address] [place] [phone] Business (1) Comments: f/u3wks ok shower and remove dressing [id number] no lift>5lbs keep incis dry clean. restart coumadin 3 days after surgery. 11-05-Wednesday. MEDICATION LIST New Medications [id number], [address], [place] [id number], [phone] acetaminophen-oxycodone (Percocet 5 mg-325 mg oral tablet) [...] 6 days of the week. Comment: Gerald [facility] Main OR Intraoperative Recor don 11-02-2024 Main OR Intraoperative Record Main OR Intraoperative Record IntraOp Document Type FT Summary Primary Physician: Shashi De Souza MD Finalized Date/Time: 11/02/24 15:52:16 Pt. Name: CASSI RODRIGEZ DEVAN Mccormack./Sex: 1950 Female Med Rec #: [id number] Physician: Shashi De Souza MD Financial #: [id number] Pt. Type: A Room/Bed: [facility] Admit/Disch: 11/02/24 10:13:03 - Institution: [...] Role Performed CARLOS ALBERTO Surgeon - Primary Geology Associate - Primary Time In 11/02/24 14:07:00 11/02/24 14:07:00 11/02/24 14:07:00 Time Out 11/02/24 15:48:00 11/02/24 15:48:00 11/02/24 15:48:00 Procedure LUMBAR LAMINECTOMY LUMBAR LAMINECTOMY LUMBAR LAMINECTOMY POSS. FUSION(.) POSS. FUSION(.) POSS. FUSION(.) Comments IS SUPERVISING Last Modified By: Renetta Melendez Kelsie E Burgderfer, Kelsie E 11/02/24 15:51:39 11/02/24 15:51:39 11/02/24 15:51:39 Entry 4 Entry 5 Entry 6 Case Attendee Hmoe Priest Amber M Stewart, Katy Role Performed Scrub - Primary MANAGER SKILLED Improvement Intern Time In 11/02/24 14:07:00 11/02/24 14:07:00 11/02/24 14:07:00 Time Out 11/02/24 15:48:00 11/02/24 15:48:00 11/02/24 15:48:00 Procedure LUMBAR LAMINECTOMY LUMBAR LAMINECTOMY LUMBAR LAMINECTOMY POSS. FUSION(.) POSS. FUSION(.) POSS. FUSION(.) Comments Last Modified By: Renetta Melendez Kelsie E Burgderfer, Kelsie E 11/02/24 15:51:39 11/02/24 15:51:39 11/02/24 15:51:39 Entry 7 Entry 8 Case Attendee Jin Presley Ii, Robert David Role Performed Staff - Other Anesthesiologist Director Workforce Management Time In 11/02/24 14:07:00 11/02/24 14:53:00 Time [...] Post-Care Text: (more content not included)... Normal [facility] Main OR PACU I Recordon 10-15 Main OR PACU I Record Main OR PACU I Rec ord PACU Phase I Document Type FT Summary Primary Physician: Shashi De Souza MD Finalized Date/Time: 11/02/24 16:45:46 Pt. Name: CASSI RODRIGEZ/Sex: 1950 Female Med Rec #: [id number] Physician: Shashi De Souza MD Financial #: [id number] Pt. Type: A Room/Bed: [place] [address] Admit/Disch: 11/02/24 10:13:03 - Institution: Case Times [...] By: Josefina Tim RN 11/02/24 16:45 Normal [facility] Main OR Preoperative Recordo n 11-02-2024 Main OR Preoperative Record Main OR Preoperative Record PreOp Document Type FT Summary Primary Physician: Shashi De Souza MD Finalized Date/Time: 11/02/24 14:42:51 Pt. Name: CASSI RODRIGEZ /Sex: 1950 Female Med Rec #: [id number] Physician: Shashi De Souza MD Financial #: [id number] Pt. Type: A Room/Bed: [facility] Admit/Disch: 11/02/24 10:13:03 - Institution: [...] 11/02/24 14:42 Renetta Melendez 11/02/24 14:42 Normal [facility] Operative Reporton Operative Report Operative Report Patient: [...] was brought to the operating room at [facility]. Timeout procedure performed. Patient was intubated [...] have unintended errors. Anesthesia type: General. Normal [facility] Comment on above: Result Comment: Elec tronically Signed By: Shashi De Souza MD\.br\Date and Time Signed: 11/02/24 15:54 EST Outpatient Surgery Discharge Instructionon 11-02-2024 Outpatient Surgery Discharge Instruction Outpatient Surgery Discharge Instruction [place] [id number] Patient Discharge Instructions PERSON INFORMATION Name: CASSI [...] up: With: Address: When: Shashi De Souza [address] [facility] [place] [phone] Business (1) Comments: f/u3wks ok shower and remove dressing [id number] no lift>5lbs keep incis dry clean. restart [...] to serve you. Thank you for choosing [facility] HERE ARE THE MEDICATION CHANGES THAT OCCURRED DURING YOUR HOSPITAL STAY New Medications [id number], [address], [place] [id number], [phone] acetaminophen-oxycodone (Percocet 5 mg-325 mg oral tablet) [...] PATIENT EDUCATION INFORMATION Instructions: Medication Leaflets: Normal [facility] PT & PTTon 11-02-2024 aPTT Coag (PPP) [Time] 43.4 second(s) High 25.1-36.5 [facility] Comment on above: Result Comment: Para meter [...] the same coagulation reagent and instrumentation as [facility]. Currently there are no coagulation studies available worldwide for children to 14 days, and no normal ranges. Heparin therapeutic range (represented by Anti-Factor Xa activity of 0.2 - 0.4 U/mL) corresponds to PTT of 56.6 - 109.0 sec. Performed By: #### 1 [id number] #### [facility] Laboratory [address] [place] [address] INR Coag (PPP) [Relative time] 1.26 {INR} Invalid Interpretation Code [facility] Comment on above: Result Comment: INR results are specifically intended to assess patients stabilized on long-term Anticoagulation therapy suggested INR???s ???Less Intensive Anticoagulation??? 2.0 ??? 3.0 Conventional Range 3.0 ??? 4.5 Performed By: #### 1 [id number] #### [facility] Laboratory [address] [place] [address] PT Coag (PPP) [Time] 14.1 second(s) High 9.4-12.5 [facility] Comment on above: Result Comment: 15 d [...] the same coagulation reagent and instrumentation as [facility]. Currently there are no coagulation studies available worldwide for children to 14 days, and no normal ranges. Performed By: #### 1 [id number] #### [facility] Laboratory [address] [place] [address] Patient Education - Texton 1 01-03-2024 Patient Education - Text Patient Education - Text Normal [facility] ABO/Rh Retypeon 10-25-2024 ABO/Rh Retype Interp Positive Invalid Interpretation Code [facility] Comment on above: Performed By: #### 1 [id number] #### [facility] Laboratory [address] [place] [address] BMPon 10-25-2024 Anion gap [Moles/Vol] 11 mmol/L Normal 6-16 [facility] Comment on above: Performed By: #### 2 [id number] #### [facility] Laboratory [address] [place] [address] Calcium [Mass/Vol] 8.7 mg/dL Low 8.9-11.1 [facility] Comment on above: Performed By: #### 2 [id number] #### [facility] [address] [place] [address] Chloride [Moles/Vol] 109 mmol/L Normal 101-111 [facility] Comment on above: Performed By: #### 2 136708 #### [facility] [address] [place] [address] CO2 [Moles/Vol] 25 mmol/L Normal 21-31 [facility] Comment on above: Performed By: #### 2 [id number] #### [facility] Laboratory [address] [place] [address] Creatinine [Mass/Vol] 1.7 mg/dL High 0.5-1.3 [facility] Comment on above: Performed By: #### 2 566762 #### [facility] [address] [place] [address] Glucose [Mass/Vol] 104 mg/dL Normal 55-199 [facility] Comment on above: Performed By: #### 2 [id number] #### [facility] [address] [place] [address] Potassium [Moles/Vol] 4.8 mmol/L Normal 3.5-5.3 [facility] Comment on above: Performed By: #### 2 157607 #### [facility] [address] [place] [address] Sodium [Moles/Vol] 140 mmol/L Normal 135-145 [facility] Comment on above: Performed By: #### 2 [id number] #### [facility] Laboratory [address] [place] [address] Urea nitrogen [Mass/Vol] 22 mg/dL High 5-21 [facility] Comment on above: Performed By: #### 2 [id number] #### [facility] Laboratory [address] [place] [address] Urea nitrogen/Creatinine [Mass ratio] 13 No Units Normal 10-20 [facility] Comment on above: Performed By: #### 2 239659 #### [facility] Laboratory [address] [place] [address] CBC w/ Auto Diffon 4 Basophils/100 WBC (Bld) 0.6 % Normal 0.0-2.0 [facility] Comment on above: Performed By: #### 2 [id number] #### [facility] Laboratory [address] [place] [address] Basophils/Leukocytes Auto (Bld) [Pure # fraction] 0.0 E9/L Normal 0.0-0.2 [facility] Comment on above: Performed By: #### 2 [id number] #### [facility] Laboratory [address] [place] [address] Eosinophils (Bld) [#/Vol] 0.3 E9/L Normal 0.0-0.5 [facility] Comment on above: Performed By: #### 2 053809 #### [facility] Laboratory [address] [place] [address] Eosinophils/100 WBC (Bld) 6.0 % Normal 0.0-8.0 [facility] Comment on above: Performed By: #### 2 [id number] #### [facility] Laboratory [address] [place] [address] Erythrocyte distribution width (RBC) [Ratio] 14.1 % Normal 10.9-14.2 [facility] Comment on above: Performed By: #### 2 [id number] #### [facility] Laboratory [address] [place] [address] Hematocrit (Bld) [Volume fraction] 36.8 % Normal 34.0-46.0 [facility] Comment on above: Performed By: #### 2 [id number] #### [facility] Laboratory [address] [place] [address] Hemoglobin (Bld) [Mass/Vol] 12.4 g/dL Normal 12.0-16.0 [facility] Comment on above: Performed By: #### 2 770070 #### [facility] Laboratory [address] [place] [address] Lymphocytes (Bld) [#/Vol] 0.7 E9/L Low 1.0-4.0 [facility] Comment on above: Performed By: #### 2 [id number] #### [facility] Laboratory [address] [place] [address] Lymphocytes/100 WBC (Bld) 15.2 % Normal 14.0-50.0 [facility] Comment on above: Performed By: #### 2 928584 #### [facility] Laboratory [address] [place] [address] MCH (RBC) [Entitic mass] 31.4 pg Normal 27.0-34.0 [facility] Comment on above: Performed By: #### 2 339159 #### [facility] Laboratory [address] [place] [address] MCHC (RBC) [Mass/Vol] 33.8 g/dL Normal 31.4-36.0 [facility] Comment on above: Performed By: #### 2 [id number] #### [facility] Laboratory [address] [place] [address] MCV (RBC) [Entitic vol] 93.0 fL Normal 80.0-100.0 [facility] Comment on above: Performed By: #### 2 [id number] #### [facility] Laboratory [address] [place] [address] Monocytes (Bld) [#/Vol] 0.3 E9/L Normal 0.2-1.0 [facility] Comment on above: Performed By: #### 2 [id number] #### [facility] [address] [place] [address] Neutrophils (Bld) [#/Vol] 3.4 E9/L Normal 2.0-7.5 [facility] Comment on above: Performed By: #### 2 [id number] #### [facility] [address] [place] [address] Neutrophils/100 WBC (Bld) 71.7 % Normal 36.0-75.0 [facility] Comment on above: Performed By: #### 2 [id number] #### [facility] [address] [place] [address] Platelet 228.0 E9/L Normal 150.0-500. 0 [facility] Comment on above: Performed By: #### 2 [id number] #### [facility] [address] [place] [address] Platelet mean volume (Bld) [Entitic vol] 7.4 fL Normal 6.4-10.8 [facility] Comment on above: Performed By: #### 2 [id number] #### [facility] [address] [place] [address] RBC (Bld) [#/Vol] 4.0 E12/L Low 4.3-5.9 [facility] Comment on above: Performed By: #### 2 [id number] #### [facility] [address] [place] [address] WBC corrected for nucl RBC Auto (Bld) [#/Vol] 4.7 E9/L Normal 4.0-11.0 [facility] Comment on above: Performed By: #### 2 [id number] #### [facility] [address] [place] [address] CT Spine Lumbar w/o Contrast on 10-25-2024 [...] MD Transcribed by: CL[place] Technologist: COCO Normal [facility] Plt Function Assayon 024 Platelet function (closure time) collagen+EPINEPHrine induced (Bld) [Time] 78 second(s) Normal 70-138 [facility] Comment on above: Result Comment: Norm al ASA vWD Glansanchezmann???s Thrombasthenia ------- ------ ------- COL/EPI Normal Abnormal Abnormal Abnormal Col/ADP Normal Normal Abnormal Abnormal Performed By: #### 1 [id number] #### [facility] [address] [place] [address] UA with Cult Rflxon 10-25-20 24 Bilirubin Ql (U) Negative Normal Negative [facility] Comment on above: Performed By: #### 4 [id number] #### [facility] [address] [place] [address] Clarity (U) Clear Normal Clear [facility] Comment on above: Performed By: #### 4 [id number] #### [facility] [address] [place] [address] Color (U) Light-Yellow Normal Yellow [facility] Comment on above: Result Comment: Micr oscopic readings are only performed on those samples that meet specific criteria set forth by [facility]. Performed By: #### 4 [id number] #### [facility] [address] [place] [address] Glucose Ql (U) Negative Normal Negative [facility] Comment on above: Performed By: #### 4 [id number] #### [facility] [address] [place] [address] Hemoglobin Auto test strip (U) [Mass/Vol] Negative Normal Negative [facility] Comment on above: Performed By: #### 4 [id number] #### [facility] [address] [place] [address] Ketones Auto test strip Ql (U) Negative Normal Negative [facility] Comment on above: Performed By: #### 4 [id number] #### [facility] [address] [place] [address] Leukocyte esterase Auto test strip Ql (U) Negative Normal Negative [facility] Comment on above: Performed By: #### 4 [id number] #### [facility] [address] [place] [address] Nitrite Auto test strip Ql (U) Negative Normal Negative [facility] Comment on above: Performed By: #### 4 [id number] #### [facility] [address] [place] [address] pH (U) 5.5 [pH] Invalid Interpretation Code 5.0-9.0 [facility] Comment on above: Performed By: #### 4 [id number] #### [facility] [address] [place] [address] Protein Ql (U) Negative Normal Negative [facility] Comment on above: Performed By: #### 4 [id number] #### [facility] [address] [place] [address] Specific gravity (U) [Rel density] 1.018 Invalid Interpretation Code 1.005-1.03 0 [facility] Comment on above: Performed By: #### 4 [id number] #### [facility] [address] [place] [address] Urobilinogen (U) [Mass/Vol] Negative Normal Negative [facility] Comment on above: Performed By: #### 4 [id number] #### [facility] [address] [place] [address] Type of Urine collection method Clean Catch Normal [facility] Comment on above: Performed By: #### 4 [id number] #### [facility] [address] [place] [address] XR Chest 2 Viewson XR Chest 2 [...] mGy = . DAP = . Normal [facility] eGFRon 10-25-2024 eGFR 31 mL/min/1.73 m2 Low >=59 [facility] Comment on above: Performed By: #### 1 [id number] #### [facility] [address] [place] [address] ECHOon 10-02-2024 Echocardiography Echocardiography Rep ort: Transthoracic Echo [facility] Date of service: 10/02/2024 2:44:31 PM CONSULTANT Ordering physician: KITTY MILLARD Indication: Evaluation of device (pacemaker, ICD, or EMERGENCY VETERINARY TECHNICIAN) after revascularization Technologist: Iwona HUANG Interpreting physician: [...] indication: Evaluation of device (pacemaker, ICD, or EMERGENCY VETERINARY TECHNICIAN) after revascularization - The left ventricle is [...] * * * Final * * * [facility] : [id number] Normal [facility] CNOVon 09-05-2024 CNOV Office Visit (NEADFV ) -- CASSI RODRIGEZ ([id number]) 1950 F Date Time Provider Department 09/05/24 [...] Jewell RN Botox, 2 vials: Lot # [id number] Exp 10/2026 Lot # [id number] Exp 10/[address] Reilly to administer and verified order. Randa Reilly MD 09/05/2024 1:54 PM Signed PROGRESS NOTE- HEADACHE MEDICINE SERVICE DATE: September 05, 2024 Location: [facility] neurological [place] Participants: patient, and provider HPI: Here for [...] 3.Referral to sleep medicine Randa Reilly MD [facility] [place] Randa Reilly MD 09/05/2024 1:54 PM Signed [...] Injection Sites Muscle Fixed Site/Fixed Dose Bilat Work Force Advisor 20 U divided in 2 sites Procerus [...] 0 Randa Reilly MD [facility] [place] R (more content not included)... Normal [facility] ECG COMPLETEon 09-01-2024 Atrial Rate 81 BPM [facility] Calculated P [place] 74 degrees [facility] Calculated R [place] 73 degrees [facility] Calculated T [place] 67 degrees [facility] P-R Interval 186 ms [facility] QRS Duration 80 ms [facility] QT Interval 386 ms [facility] QTC Calculation (Bazett) 448 ms [facility] Ventricular Rate 81 BPM [facility] ATRIAL-PACED RHYTHM LOW VOLTAGE QRS, CONSIDER PULMONARY DISEASE, PERICARDIAL EFFUSION, OR NORMAL VARIANT ABNORMAL ECG Confirmed by JONATHAN TELLEZ MD ([id number]) on 09/01/2024 1:53:38 PM [facility] NAME : CASSI RODRIGEZ PID : [id number] : 1950 Gender : Female Race : [...] by : , [facility] CNOVon 08-31-2024 CNOV Office Visit (CAEPAV ) -- CASSI RODRIGEZ ([id number]) 1950 F Date Time Provider Department 08/31/24 10:00 AM KITTY VALENTE During your visit today, we recorded the following information about you: Pulse Blood pressure Weight Height 81/minute 134/72 88 kg 1.575 m Kitty Valente MD 09/02/2024 12:42 AM Signed [facility] [place] Guy Renteria Department of Cardiovascular Medicine SECTION OF CARDIAC PACING and ELECTROPHYSIOLOGY OUTPATIENT VISIT DATE NASRIN July 23, 2022 August 31, 2024 OUTPATIENT VISIT TYPE ESTABLISHED PRIMARY CARE PHYSICIAN: Broderick Howard MD ([facility]) [address] [place] [address] CHIEF COMPLAINT: Pacemaker management HISTORY OF PRESENT [...] Review of (more content not included)... Normal [facility] [id number] 08-31-2024 ECG01 Ventricular Rate : 8 1 BPM Atrial Rate : 81 BPM P-R Interval : 186 ms QRS Duration : 80 ms Q-T Interval : 386 ms QTC Calculation(Bazett) : 448 ms Calculated P [place] : 74 degrees Calculated R [place] : 73 degrees Calculated T [place] : 67 degrees ATRIAL-PACED RHYTHM LOW VOLTAGE QRS, CONSIDER PULMONARY DISEASE, PERICARDIAL EFFUSION, OR NORMAL VARIANT ABNORMAL ECG Confirmed by JONATHAN TELLEZ MD ([id number]) on 09/01/2024 1:53:38 PM NAME : CASSI RODRIGEZ PID : [id number] : 1950 Gender : Female Race : [...] : , Acquired by : , Normal [facility] Erythrocyte distribution wid th Auto (RBC) [Ratio]on 08-28-2024 Erythrocyte distribution width (RBC) [Ratio] 13.0 % .0-15.0 [facility] Erythrocyte distribution width (RBC) [Ratio] Erythrocyte distribution width [Ratio] by Automated count .-15.0 [facility] Estimated glomerular filtrat ion rate (GFR) non- Americanon 08-28-2024 GFR/1.73 sq M.predicted among non-blacks MDRD (S/P/Bld) [Vol rate/Area] 26 mL/min/{1.73_m2} Low >=60 mL/min/1.7 3m 2 [facility] GFR/1.73 sq M.predicted among non-blacks MDRD (S/P/Bld) [Vol rate/Area] Estimated glomerular filtration rate (GFR) non- Low >=60 mL/min/1.7 3m 2 [facility] Hematocrit Auto (Bld) [Volum e fraction]on 08-28-2024 Hematocrit (Bld) [Volume fraction] 37.4 % 36.0-48.0 [facility] Hematocrit (Bld) [Volume fraction] Hematocrit [Volume Fraction] of Blood by Automated count 36.0-48.0 [facility] Hemoglobin [Mass/volume] in Bloodon 08-28-2024 Hemoglobin (Bld) [Mass/Vol] 11.8 g/dL Low 12.0-16.0 [facility] Hemoglobin (Bld) [Mass/Vol] Hemoglobin [Mass/volume] in Blood Low 12.0-16.0 [facility] Iron binding capacity [Mass/ volume] in Serum or Plasmaon 08-28-2024 Iron binding capacity [Mass/Vol] 356.0 ug/dL 250.0-450. 0 [facility] Iron binding capacity [Mass/Vol] Iron binding capacity [Mass/volume] in Serum or Plasma 250.0-450. 0 [facility] Iron saturation [Mass Fracti on] in Serum or Plasmaon 08-28-2024 Iron saturation [Mass fraction] 14.3 % [facility] Iron saturation [Mass fraction] Iron saturation [Mass Fraction] in Serum or Plasma [facility] Laboratory - Chemistry and C hemistry - challengeon 08-28-2024 Albumin [Mass/Vol] 3.3 g/dL Low 3.4-5.0 [facility] Calcium [Mass/Vol] 8.6 mg/dL 8.5-10.1 [facility] Chloride [Moles/Vol] 108 mmol/L High 98-107 [facility] CO2 [Moles/Vol] 21.8 mmol/L 21.0-32.0 [facility] Creatinine [Mass/Vol] 1.91 mg/dL High 0.55-1.02 [facility] Ferritin [Mass/Vol] 15.0 ng/mL 8.0-252.0 [facility] GFR/1.73 sq M.predicted MDRD (S/P/Bld) [Vol rate/Area] 31 mL/min/{1.73_m2} Low >=60 mL/min/1.7 3m 2 [facility] Glucose [Mass/Vol] 135 mg/dL High 74-106 [facility] Iron [Mass/Vol] 51.0 ug/dL 50.0-170.0 [facility] Magnesium [Mass/Vol] 2.0 mg/dL 1.8-2.4 [facility] Potassium [Moles/Vol] 4.0 mmol/L 3.5-5.1 [facility] Sodium [Moles/Vol] 142 mmol/L 136-145 [facility] Urate [Mass/Vol] 5.0 mg/dL 2.6-6.0 [facility] Urea nitrogen [Mass/Vol] 24.0 mg/dL High 7.0-18.0 [facility] Urea nitrogen/Creatinine [Mass ratio] 12.6 mg/mg [facility] Bilirubin Ql (U) Negative NEGATIVE [facility] Glucose (U) [Mass/Vol] Negative NEGATIVE [facility] Ketones Ql (U) Negative NEGATIVE [facility] pH (U) 5.5 [pH] 5.0-9.0 [facility] Specific gravity (U) [Rel density] 1.025 1.005-1.02 5 [facility] Urobilinogen Qn (U) 0.2 {Lin'U}/dL 0.2-1.0 [facility] Laboratory - Specimen inform ationon 08-28-2024 Appearance (U) CLEAR CLEAR [facility] Color (U) YELLOW YELLOW [facility] Laboratory - Urinalysison Leukocyte esterase Test strip Ql (U) Negative NEGATIVE [facility] Mucus Ql (Urine sed) NONE SEEN NONE SEEN [facility] Nitrite Ql (U) Negative NEGATIVE [facility] Protein (U) [Mass/Vol] 16.2 mg/dL High <=11.9 [facility] Protein Ql (U) Negative NEG/TRACE [facility] Leukocytes [#/volume] correc tanesha for nucleated erythrocytes in Blood by Automated counon 08-28-2024 WBC corrected for nucl RBC Auto (Bld) [#/Vol] 5.2 10 3/uL 4.0-11.0 [facility] WBC corrected for nucl RBC Auto (Bld) [#/Vol] Leukocytes [#/volume] corrected for nucleated erythrocytes in Blood by Automated coun 4.0-11.0 [facility] MCH Auto (RBC) [Entitic mass ]on 08-28-2024 MCH (RBC) [Entitic mass] 31.1 pg 26.7-34.0 [facility] MCH (RBC) [Entitic mass] MCH [Entitic mass] by Automated count 26.7-34.0 [facility] MCHC Auto (RBC) [Mass/Vol]on 08-28-2024 MCHC (RBC) [Mass/Vol] 31.6 g/dL 29.9-35.2 [facility] MCHC (RBC) [Mass/Vol] MCHC [Mass/volume] by Automated count 29.9-35.2 [facility] MCV Auto (RBC) [Entitic vol] on 08-28-2024 MCV (RBC) [Entitic vol] 98.4 fL 81.0-99.0 [facility] MCV (RBC) [Entitic vol] MCV [Entitic vol ume] by Automated count 81.0-99.0 [facility] No Panel Informationon 08-28 25-Hydroxy Vitamin D Total 22.3 ng/mL [facility] Comment on above: <20 ng/mL Vit D defi cient20-<30 ng/mL Vit D luljwcuwrtxr22-912 ng/mL Vit D sufficient>100 ng/mL Potential Toxicity Parathyroid Hormone (Intact) 194 pg/mL Abnormal [facility] Comment on above: Performed at: [address] [id number] Director: Junaid Sawyer PhD, Phone: [phone] Phosphorus Level 3.0 mg/dL 2.6-4.7 [facility] Urine Bacteria NONE SEEN #/HPF NONE SEEN [facility] Urine Occult Blood Negative NEGATIVE [facility] Urine Other Casts NONE SEEN #/LPF NONE SEEN [facility] Urine Other Crystals None Seen #/HPF None Seen [facility] Urine Random Creatinine 137.09 mg/dL 20.0 0-300. 00 [facility] Urine RBC NONE SEEN #/HPF 0-2 [facility] Urine Squamous Epithelial Cells RARE #/LPF NONE/RARE [facility] Urine WBC 0-2 #/HPF Abnormal NONE SEEN [facility] Platelet mean volume Auto (B ld) [Entitic vol]on 08-28-2024 Platelet mean volume (Bld) [Entitic vol] 9.5 fL 9.5-13.5 [facility] Platelet mean volume (Bld) [Entitic vol] Platelet mean volume [Entitic volume] in Blood by Automated count 9.5-13.5 [facility] Platelets Auto (Bld) [#/Vol] on 08-28-2024 Platelets (Bld) [#/Vol] 219 10 3/uL 150-450 [facility] Platelets (Bld) [#/Vol] Platelets [#/vol ume] in Blood by Automated count 150-450 [facility] RBC Auto (Bld) [#/Vol]on RBC (Bld) [#/Vol] 3.80 10 6/uL Low 4.20-5.40 [facility] RBC (Bld) [#/Vol] Erythrocytes [#/volu me] in Blood by Automated count Low 4.20-5.40 [facility] Serum or plasma anion gap de terminationon 08-28-2024 Anion gap [Moles/Vol] 16.2 mmol/L [facility] Anion gap [Moles/Vol] Serum or plasma an ion gap determination [facility] Urine protein/creatinine rat ioon 08-28-2024 Protein/Creatinine (U) [Ratio] 0.12 [facility] Protein/Creatinine (U) [Ratio] Urine protein/creatinine ratio [facility] Basophils Auto (Bld) [#/Vol] on 07-05-2024 Basophils (Bld) [#/Vol] 0.0 10 3/uL 0.0-0.1 [facility] Basophils/100 WBC Auto (Bld) on 07-05-2024 Basophils/100 WBC (Bld) 0.7 % 0.2-2.0 [facility] Eosinophils/100 WBC Auto (Bl d)on 07-05-2024 Eosinophils/100 WBC (Bld) 4.2 % 0.9-7.0 [facility] Erythrocyte distribution wid th Auto (RBC) [Ratio]on 07-05-2024 Erythrocyte distribution width (RBC) [Ratio] 14.9 % 11.0-15.0 [facility] Hematocrit Auto (Bld) [Volum e fraction]on 07-05-2024 Hematocrit (Bld) [Volume fraction] 36.5 % 36.0-48.0 [facility] Hemoglobin [Mass/volume] in Bloodon 07-05-2024 Hemoglobin (Bld) [Mass/Vol] 11.9 g/dL Low 12.0-16.0 [facility] Iron binding capacity [Mass/ volume] in Serum or Plasmaon 07-05-2024 Iron binding capacity [Mass/Vol] 344.0 ug/dL 250.0-450. 0 [facility] Iron saturation [Mass Fracti on] in Serum or Plasmaon 07-05-2024 Iron saturation [Mass fraction] 18.9 % [facility] Laboratory - Chemistry and C hemistry - challengeon 07-05-2024 Cobalamin (Vitamin B12) [Mass/Vol] 400.0 pg/mL 193.0-986. 0 [facility] Ferritin [Mass/Vol] 24.0 ng/mL 8.0-252.0 [facility] Iron [Mass/Vol] 65.0 ug/dL 50.0-170.0 [facility] Laboratory - Hematology and Cell countson 07-05-2024 Immature granulocytes/100 WBC (Bld) 0.6 % High 0.0-0.5 [facility] Leukocytes [#/volume] correc tanesha for nucleated erythrocytes in Blood by Automated counon 07-05-2024 WBC corrected for nucl RBC Auto (Bld) [#/Vol] 5.4 10 3/uL 4.0-11.0 [facility] Lymphocytes Auto (Bld) [#/Vo l]on 07-05-2024 Lymphocytes (Bld) [#/Vol] 0.8 10 3/uL Low 1.2-3.8 [facility] Lymphocytes/100 WBC Auto (Bl d)on 07-05-2024 Lymphocytes/100 WBC (Bld) 14.4 % Low 20.5-60.0 [facility] MCH Auto (RBC) [Entitic mass ]on 07-05-2024 MCH (RBC) [Entitic mass] 30.8 pg 26.7-34.0 [facility] MCHC Auto (RBC) [Mass/Vol]on 07-05-2024 MCHC (RBC) [Mass/Vol] 32.6 g/dL 29.9-35.2 [facility] MCV Auto (RBC) [Entitic vol] on 07-05-2024 MCV (RBC) [Entitic vol] 94.6 fL 81.0-99.0 [facility] Monocytes Auto (Bld) [#/Vol] on 07-05-2024 Monocytes (Bld) [#/Vol] 0.4 10 3/uL 0.3-0.8 [facility] Monocytes/100 WBC Auto (Bld) on 07-05-2024 Monocytes/100 WBC (Bld) 6.5 % 1.7-12.0 [facility] Neutrophils Auto (Bld) [#/Vo l]on 07-05-2024 Neutrophils (Bld) [#/Vol] 4.0 10 3/uL 1.4-6.5 [facility] Neutrophils/100 WBC Auto (Bl d)on 07-05-2024 Neutrophils/100 WBC (Bld) 73.6 % 43.0-75.0 [facility] No Panel Informationon 07-05 Add Manual Differential See comment [facility] Comment on above: SEE SCANNED REPORT Eosinophils # (Auto) 0.2 10 3/uL 0.0-0.7 [facility] Folate 10.80 ng/mL 8.60-58.90 [facility] Immature Granulocyte # (Auto) 0.03 10 3/uL 0.00-0.03 [facility] Platelet mean volume Auto (B ld) [Entitic vol]on 07-05-2024 Platelet mean volume (Bld) [Entitic vol] 9.4 fL Low 9.5-13.5 [facility] Platelets Auto (Bld) [#/Vol] on 07-05-2024 Platelets (Bld) [#/Vol] 180 10 3/uL 150-450 [facility] RBC Auto (Bld) [#/Vol]on RBC (Bld) [#/Vol] 3.86 10 6/uL Low 4.20-5.40 [facility] Comprehensive metabolic 2000 panelon 06-29-2024 Albumin [Mass/Vol] 4.3 g/dL 3.9 - 4.9 g/dL [facility] ALP [Catalytic activity/Vol] 170 U/L High 34 - 123 U/L [facility] ALT [Catalytic activity/Vol] 28 U/L 7 - 38 U/L [facility] Anion gap [Moles/Vol] 8 mmol/L 8 - 15 mmol/L [facility] AST [Catalytic activity/Vol] 22 U/L 13 - 35 U/L [facility] Bilirubin [Mass/Vol] 0.4 mg/dL 0.2 - 1 .3 mg/dL [facility] Calcium [Mass/Vol] 8.8 mg/dL 8.5 - 10. 2 mg/dL [facility] Chloride [Moles/Vol] 109 mmol/L High 98 - 10 7 mmol/L [facility] CO2 [Moles/Vol] 24 mmol/L 22 - 30 mmol/L [facility] Creatinine [Mass/Vol] 1.73 mg/dL High 0.58 - 0.96 mg/dL [facility] GFR/1.73 sq M.predicted among non-blacks MDRD (S/P/Bld) [Vol rate/Area] 31 mL/min/{1.73_m2} Low - PINF [facility] Comment on above: Estimated Glomerular [...] 111 mg/dL High 74 - 99 mg/dL [facility] Comment on above: The [place] [employer] (ADA) provides guidance for [...] Standards of Medical Care in Diabetes 2016, [place] [employer]. Diabetes Care. 2016.39(Suppl 1). Interpretation and review of laboratory results Abnormal [facility] Potassium [Moles/Vol] 5.1 mmol/L 3.7 - 5.1 mmol/L [facility] Protein [Mass/Vol] 7.0 g/dL 6.3 - 8.0 g/dL [facility] Sodium [Moles/Vol] 141 mmol/L 136 - 144 mmol/L [facility] Urea nitrogen [Mass/Vol] 34 mg/dL High 7 - 21 mg/dL [facility] LEVETIRACETAMon 06-29-2024 levETIRAcetam [Mass/Vol] 59.9 ug/mL High 12.0 - 46.0 ug/mL [facility] Comment on above: This test [...] developed and its performance characteristics determined by [facility]'s Cj Villalba [facility] Pathology and Laboratory Medicine [place] [facility] It has not been cleared or approved by the FDA. [facility] is regulated under CLIA as qualified to perform high-complexity testing. This test is used for clinical purposes. It should not be regarded as investigational or for research. Laboratory - Chemistry and C hemistry - challengeon 06-29-2024 Albumin [Mass/Vol] 4.3 g/dL 3.9-4.9 [facility] ALP [Catalytic activity/Vol] 170 U/L High 34-123 [facility] ALT [Catalytic activity/Vol] 28 U/L 7-38 [facility] AST [Catalytic activity/Vol] 22 U/L 13-35 [facility] Bilirubin [Mass/Vol] 0.4 mg/dL 0.2-1.3 [facility] Calcium [Mass/Vol] 8.8 mg/dL 8.5-10.2 [facility] Chloride [Moles/Vol] 109 mmol/L High 98-107 [facility] CO2 [Moles/Vol] 24 mmol/L 22-30 [facility] Creatinine [Mass/Vol] 1.73 mg/dL High 0.58-0.96 [facility] Glucose [Mass/Vol] 111 mg/dL High 74-99 [facility] Comment on above: The [place] [employer] (ADA) provides guidance for [...] Standards of Medical Care in Diabetes 2016, [place] [employer]. Diabetes Care. 2016.39(Suppl 1). Potassium [Moles/Vol] 5.1 mmol/L 3.7-5.1 [facility] Sodium [Moles/Vol] 141 mmol/L 136-144 [facility] Urea nitrogen [Mass/Vol] 34 mg/dL High 7-21 [facility] No Panel Informationon 06-29 Estimated GFR (CKD-EPI) 31 mL/min/1.73m??? Low >=60 [facility] Comment on above: Estimated Glomerular Filtration Rate [...] Levetiracetam (Keppra) Level 59.9 ug/mL High 12.0-46.0 [facility] Comment on above: This test is not [...] developed and its performance characteristics determined by [facility] Pathology and Laboratory Medicine [place] ([facility]). It has not been cleared or approved by the FDA. -[facility] is regulated under CLIA as qualified to perform high-complexity testing. This test is used for clinical purposes. It should not be regarded as investigational or for research. Protein [Mass/volume] in Ser um or Plasmaon 06-29-2024 Protein [Mass/Vol] 7.0 g/dL 6.3-8.0 [facility] Serum or plasma anion gap de terminationon 06-29-2024 Anion gap [Moles/Vol] 8 mmol/L 06-29 [facility] levETIRAcetam [Mass/Vol]on 0 06-29-2024 Interpretation and review of laboratory results Abnormal [facility] INR in Platelet poor plasma by Coagulation assayon 06-05-2024 INR Coag (PPP) [Relative time] 2.29 {INR} [facility] Comment on above: DESIRED INR:2.0-3.0 CONDITIONS NOT LISTED BELOW2.5-3.5 FOR PROSTHETIC HEART VALVE REPLACEMENT2.5-3.5 RECURRENT THROMBOSIS Prothrombin time (PT)on 05-16 PT Coag (PPP) [Time] 22.4 s High 9.0-11.6 [facility] Creatinine (Bld) [Mass/Vol]O rdered By: David Mcfadden on 05-30-2024 Creatinine [Mass/Vol] 1.8 mg/dL High 0.6-1.3 [facility] Comment on above: ER/ESD physician is notified/shown all ISTAT results.Critical values may be confirmed by laboratory testing ifdeemed necessary by ER attending doctor. No Panel InformationOrdered By: David Mcfadden on 05-30-2024 Bedside Estimated GFR (eGFR) 29.200 [facility] INR in Platelet poor plasma by Coagulation assayon 05-15-2024 INR Coag (PPP) [Relative time] 2.71 {INR} [facility] Comment on above: DESIRED INR:2.0-3.0 CONDITIONS NOT LISTED BELOW2.5-3.5 FOR PROSTHETIC HEART VALVE REPLACEMENT2.5-3.5 RECURRENT THROMBOSIS Prothrombin time (PT)on PT Coag (PPP) [Time] 26.0 s High 9.0-11.6 [facility] Basophils Auto (Bld) [#/Vol] on 05-05-2024 Basophils (Bld) [#/Vol] 0.0 10 3/uL 0.0-0.1 [facility] Basophils/100 WBC Auto (Bld) on 05-05-2024 Basophils/100 WBC (Bld) 1.1 % 0.2-2.0 [facility] Eosinophils/100 WBC Auto (Bl d)on 05-05-2024 Eosinophils/100 WBC (Bld) 6.9 % 0.9-7.0 [facility] Erythrocyte distribution wid th Auto (RBC) [Ratio]on 05-05-2024 Erythrocyte distribution width (RBC) [Ratio] 13.3 % 11.0-15.0 [facility] Estimated glomerular filtrat ion rate (GFR) non- Americanon 05-05-2024 GFR/1.73 sq M.predicted among non-blacks MDRD (S/P/Bld) [Vol rate/Area] 32 mL/min/{1.73_m2} Low >=60 [facility] Hematocrit Auto (Bld) [Volum e fraction]on 05-05-2024 Hematocrit (Bld) [Volume fraction] 35.5 % Low 36.0-48.0 [facility] Hemoglobin [Mass/volume] in Bloodon 05-05-2024 Hemoglobin (Bld) [Mass/Vol] 11.1 g/dL Low 12.0-16.0 [facility] Laboratory - Chemistry and C hemistry - challengeon 05-05-2024 Calcium [Mass/Vol] 8.4 mg/dL Low 8.5-10.1 [facility] Chloride [Moles/Vol] 108 mmol/L High 98-107 [facility] CO2 [Moles/Vol] 26.2 mmol/L 21.0-32.0 [facility] Creatinine [Mass/Vol] 1.60 mg/dL High 0.55-1.02 [facility] GFR/1.73 sq M.predicted MDRD (S/P/Bld) [Vol rate/Area] 38 mL/min/{1.73_m2} Low >=60 [facility] Glucose [Mass/Vol] 103 mg/dL 74-106 [facility] Potassium [Moles/Vol] 4.4 mmol/L 3.5-5.1 [facility] Sodium [Moles/Vol] 140 mmol/L 136-145 [facility] Urea nitrogen [Mass/Vol] 24.0 mg/dL High 7.0-18.0 [facility] Urea nitrogen/Creatinine [Mass ratio] 15.0 mg/mg [facility] Laboratory - Hematology and Cell countson 05-05-2024 ESR (Bld) [Velocity] 45 mm/h High <=30 [facility] Immature granulocytes/100 WBC (Bld) 0.0 % 0.0-0.5 [facility] Leukocytes [#/volume] correc tanesha for nucleated erythrocytes in Blood by Automated counon 05-05-2024 WBC corrected for nucl RBC Auto (Bld) [#/Vol] 3.8 10 3/uL Low 4.0-11.0 [facility] Lymphocytes Auto (Bld) [#/Vo l]on 05-05-2024 Lymphocytes (Bld) [#/Vol] 1.0 10 3/uL Low 1.2-3.8 [facility] Lymphocytes/100 WBC Auto (Bl d)on 05-05-2024 Lymphocytes/100 WBC (Bld) 27.1 % 20.5-60.0 [facility] MCH Auto (RBC) [Entitic mass ]on 05-05-2024 MCH (RBC) [Entitic mass] 28.8 pg 26.7-34.0 [facility] MCHC Auto (RBC) [Mass/Vol]on 05-05-2024 MCHC (RBC) [Mass/Vol] 31.3 g/dL 29.9-35.2 [facility] MCV Auto (RBC) [Entitic vol] on 05-05-2024 MCV (RBC) [Entitic vol] 92.2 fL 81.0-99.0 [facility] Monocytes Auto (Bld) [#/Vol] on 05-05-2024 Monocytes (Bld) [#/Vol] 0.3 10 3/uL 0.3-0.8 [facility] Monocytes/100 WBC Auto (Bld) on 05-05-2024 Monocytes/100 WBC (Bld) 8.2 % 1.7-12.0 [facility] Neutrophils Auto (Bld) [#/Vo l]on 05-05-2024 Neutrophils (Bld) [#/Vol] 2.1 10 3/uL 1.4-6.5 [facility] Neutrophils/100 WBC Auto (Bl d)on 05-05-2024 Neutrophils/100 WBC (Bld) 56.7 % 43.0-75.0 [facility] No Panel Informationon 05-05 C-Reactive Protein, Quantitative <0.50 mg/dL <=0.50 [facility] Eosinophils # (Auto) 0.3 10 3/uL 0.0-0.7 [facility] Immature Granulocyte # (Auto) 0.00 10 3/uL 0.00-0.03 [facility] Platelet mean volume Auto (B ld) [Entitic vol]on 05-05-2024 Platelet mean volume (Bld) [Entitic vol] 9.4 fL Low 9.5-13.5 [facility] Platelets Auto (Bld) [#/Vol] on 05-05-2024 Platelets (Bld) [#/Vol] 217 10 3/uL 150-450 [facility] RBC Auto (Bld) [#/Vol]on RBC (Bld) [#/Vol] 3.85 10 6/uL Low 4.20-5.40 [facility] Serum or plasma anion gap de terminationon 05-05-2024 Anion gap [Moles/Vol] 10.2 mmol/L [facility] No Panel Informationon 03-15 BLANK _ [facility] Implant Date 05/22/2015 [facility] Model 5076 CapSureFix [facility] PACEMAKER REMOTE CHECKon AV Delay Adaptive Paced Minimum (ms) 180 ms [facility] AV Delay Adaptive Sensed Minimum (ms) 150 ms [facility] AV Delay Adaptive Status DISABLED [facility] Battery Voltage (volts) 2.92 [facility] RA Pacing Amplitude (volts) 1.5 V [facility] RA Pacing Polarity BI [facility] RA Pacing Pulse Width (ms) 0.4 ms [facility] RA Sensing Amplitude (mvolts) 0.3 mV [facility] RA Sensing Blanking Period (ms) 150 ms [facility] RA Sensing Polarity BI [facility] RA Sensing Refractory Period (ms) Auto [facility] RV Pacing Amplitude (volts) 2 V [facility] RV Pacing Polarity BI [facility] RV Pacing Pulse Width (ms) 0.4 ms [facility] RV Sensing Amplitude (mvolts) 0.9 mV [facility] RV Sensing Blanking Period (ms) 200 ms [facility] RV Sensing Polarity BI [facility] Hysteresis Rate (bpm) DISABLED [facility] Lead1 Jorge KELLER [facility] Lead2 Jorge KELLER [facility] Location RV [facility] Location RA [facility] Lower Rate (bpm) 60 {beats}/min [facility] Max Sensor Rate (bmp) 130 {beats}/min [facility] Model [id number] [facility] PM-Device Jorge KELLER [facility] PM-Percent Pacing (A) 99.48 % [facility] PM-Percent Pacing (V) 0.27 % [facility] PM-PMT Intervention ENABLED [facility] PM-PVC Intervention ENABLED [facility] PM-Rate Modulation Acceleration Reaction 30 s [facility] PM-Rate Modulation ADL Rate (bpm) 100 {beats}/min [facility] PM-Rate Modulation Deceleration Exercise [facility] PM-Rate Modulation Threshold MediumLow [facility] RA Bipolar Impedance ohms 418 ohm [facility] RA Unipolar Impedance ohms 399 ohm [facility] RV Bipolar Impedance ohms 532 ohm [facility] RV Unipolar Impedance 494 ohm [facility] Serial Number [id number] [facility] Serial Number [id number] [facility] Serial Number [id number] [facility] Thresh RA Capture Amplitude (volts) 0.5 V [facility] Thresh RA Capture Duration (ms) 0.4 ms [facility] Thresh RA Sensing Amplitude (mvolts) 3.125 mV [facility] Thresh RV Capture Amplitude (volts) 0.875 V [facility] Thresh RV Capture Duration (ms) 0.4 ms [facility] Thresh RV Sensing Amplitude (mvolts) 11.875 mV [facility] Tracking Rate (bpm) 130 {beats}/min [facility] 03/15/2024 Formattin g of this note might [...] CARDIAC DATA AND REPORT, Scanned Documents section. [facility] Albumin [Mass/volume] in Ser um or Plasmaon 03-03-2024 Albumin [Mass/Vol] 3.5 g/dL 2.9-4.4 [facility] Basophils Auto (Bld) [#/Vol] on 03-03-2024 Basophils (Bld) [#/Vol] 0.0 10 3/uL 0.0-0.1 [facility] Basophils/100 WBC Auto (Bld) on 03-03-2024 Basophils/100 WBC (Bld) 0.7 % 0.2-2.0 [facility] Eosinophils/100 WBC Auto (Bl d)on 03-03-2024 Eosinophils/100 WBC (Bld) 10.8 % High 0.9-7.0 [facility] Erythrocyte distribution wid th Auto (RBC) [Ratio]on 03-03-2024 Erythrocyte distribution width (RBC) [Ratio] 13.5 % 11.0-15.0 [facility] Estimated glomerular filtrat ion rate (GFR) non- Americanon 03-03-2024 GFR/1.73 sq M.predicted among non-blacks MDRD (S/P/Bld) [Vol rate/Area] 34 mL/min/{1.73_m2} Low >=60 [facility] Globulin Calc (S) [Mass/Vol] on 03-03-2024 Globulin (S) [Mass/Vol] 3.6 g/dL [facility] Hematocrit Auto (Bld) [Volum e fraction]on 03-03-2024 Hematocrit (Bld) [Volume fraction] 38.8 % 36.0-48.0 [facility] Hemoglobin [Mass/volume] in Bloodon 03-03-2024 Hemoglobin (Bld) [Mass/Vol] 11.9 g/dL Low 12.0-16.0 [facility] IgA [Mass/volume] in Serum o r Plasmaon 03-03-2024 IgA [Mass/Vol] 265 mg/dL 64-422 [facility] IgG [Mass/volume] in Serum o r Plasmaon 03-03-2024 IgG [Mass/Vol] 911 mg/dL [phone] [facility] IgM [Mass/volume] in Serum o r Plasmaon 03-03-2024 IgM [Mass/Vol] 64 mg/dL 26-217 [facility] Immunoglobulin light chains. kappa.free [Mass/volume] in Serumon 03-03-2024 Immunoglobulin light chains.kappa.free (S) [Mass/Vol] 44.7 mg/L Abnormal 3.3-19.4 [facility] Immunoglobulin light chains. kappa.free/Immunoglobulin light chains.lambda.free [Yanelis 03-03-2024 Immunoglobulin light chains.kappa.free/Immun oglobulin light chains.lambda.free (S) [Mass ratio] 1.16 0.26-1.65 [facility] Comment on above: Performed at: [address] [id number] Director: Junaid Sawyer PhD, Phone: [phone] Immunoglobulin light chains. lambda.free [Mass/volume] in Serum or Plasmaon 03-03-2024 Immunoglobulin light chains.lambda.free [Mass/Vol] 38.7 mg/L Abnormal 5.7-26.3 [facility] Iron binding capacity [Mass/ volume] in Serum or Plasmaon 03-03-2024 Iron binding capacity [Mass/Vol] 338.0 ug/dL 250.0-450. 0 [facility] Iron saturation [Mass Fracti on] in Serum or Plasmaon 03-03-2024 Iron saturation [Mass fraction] 7.7 % [facility] Laboratory - Chemistry and C hemistry - challengeon 03-03-2024 Albumin [Mass/Vol] 3.3 g/dL Low 3.4-5.0 [facility] ALP [Catalytic activity/Vol] 155 U/L High 46-116 [facility] ALT [Catalytic activity/Vol] 21 U/L 14-59 [facility] AST [Catalytic activity/Vol] 25 U/L 15-37 [facility] Bilirubin [Mass/Vol] 0.4 mg/dL 0.2-1.0 [facility] Calcium [Mass/Vol] 9.0 mg/dL 8.5-10.1 [facility] Chloride [Moles/Vol] 106 mmol/L 98-107 [facility] CO2 [Moles/Vol] 21.4 mmol/L 21.0-32.0 [facility] Cobalamin (Vitamin B12) [Mass/Vol] 495.0 pg/mL 193.0-986. 0 [facility] Creatinine [Mass/Vol] 1.50 mg/dL High 0.55-1.02 [facility] Ferritin [Mass/Vol] 19.0 ng/mL 8.0-252.0 [facility] GFR/1.73 sq M.predicted MDRD (S/P/Bld) [Vol rate/Area] 41 mL/min/{1.73_m2} Low >=60 [facility] Glucose [Mass/Vol] 113 mg/dL High 74-106 [facility] Iron [Mass/Vol] 26.0 ug/dL Low 50.0-170.0 [facility] Potassium [Moles/Vol] 4.3 mmol/L 3.5-5.1 [facility] Protein [Mass/Vol] 6.9 g/dL 6.4-8.2 [facility] Sodium [Moles/Vol] 139 mmol/L 136-145 [facility] Urea nitrogen [Mass/Vol] 25.0 mg/dL High 7.0-18.0 [facility] Urea nitrogen/Creatinine [Mass ratio] 16.7 mg/mg [facility] Laboratory - Hematology and Cell countson 03-03-2024 Immature granulocytes/100 WBC (Bld) 0.0 % 0.0-0.5 [facility] Leukocytes [#/volume] correc tanesha for nucleated erythrocytes in Blood by Automated counon 03-03-2024 WBC corrected for nucl RBC Auto (Bld) [#/Vol] 2.8 10 3/uL Low 4.0-11.0 [facility] Lymphocytes Auto (Bld) [#/Vo l]on 03-03-2024 Lymphocytes (Bld) [#/Vol] 0.8 10 3/uL Low 1.2-3.8 [facility] Lymphocytes/100 WBC Auto (Bl d)on 03-03-2024 Lymphocytes/100 WBC (Bld) 27.6 % 20.5-60.0 [facility] MCH Auto (RBC) [Entitic mass ]on 03-03-2024 MCH (RBC) [Entitic mass] 28.8 pg 26.7-34.0 [facility] MCHC Auto (RBC) [Mass/Vol]on 03-03-2024 MCHC (RBC) [Mass/Vol] 30.7 g/dL 29.9-35.2 [facility] MCV Auto (RBC) [Entitic vol] on 03-03-2024 MCV (RBC) [Entitic vol] 93.9 fL 81.0-99.0 [facility] Monocytes Auto (Bld) [#/Vol] on 03-03-2024 Monocytes (Bld) [#/Vol] 0.3 10 3/uL 0.3-0.8 [facility] Monocytes/100 WBC Auto (Bld) on 03-03-2024 Monocytes/100 WBC (Bld) 9.7 % 1.7-12.0 [facility] Neutrophils Auto (Bld) [#/Vo l]on 03-03-2024 Neutrophils (Bld) [#/Vol] 1.4 10 3/uL 1.4-6.5 [facility] Neutrophils/100 WBC Auto (Bl d)on 03-03-2024 Neutrophils/100 WBC (Bld) 51.2 % 43.0-75.0 [facility] No Panel Informationon 03-03 Eosinophils # (Auto) 0.3 10 3/uL 0.0-0.7 [facility] Folate 9.50 ng/mL 8.60-58.90 [facility] Immature Granulocyte # (Auto) 0.00 10 3/uL 0.00-0.03 [facility] Protein Electrophoresis M-Miguel Not Observed g/dL Not Observed [facility] Protein Electrophoresis Note Comment . [facility] Comment on above: Protein electrophore sis scan will follow via computer,mail, or crm solution architect delivery. Platelet mean volume Auto (B ld) [Entitic vol]on 03-03-2024 Platelet mean volume (Bld) [Entitic vol] 9.4 fL Low 9.5-13.5 [facility] Platelets Auto (Bld) [#/Vol] on 03-03-2024 Platelets (Bld) [#/Vol] 203 10 3/uL 150-450 [facility] Protein [Mass/volume] in Ser um or Plasmaon 03-03-2024 Protein [Mass/Vol] 6.2 g/dL 6.0-8.5 [facility] RBC Auto (Bld) [#/Vol]on RBC (Bld) [#/Vol] 4.13 10 6/uL Low 4.20-5.40 [facility] Serum globulin measurement ( mass/volume)on 03-03-2024 Globulin (S) [Mass/Vol] 2.7 g/dL 2.2-3.9 [facility] Serum or plasma albumin/glob ulin mass ratioon 03-03-2024 Albumin/Globulin [Mass ratio] 0.9 {ratio} [facility] Albumin/Globulin [Mass ratio] 1.3 {ratio} 0.7-1.7 [facility] Serum or plasma alpha 1 glob ulin measurement by electrophoresis (mass/volume)on 03-03-2024 Alpha 1 globulin Elph [Mass/Vol] 0.3 g/dL 0.0-0.4 [facility] Serum or plasma alpha 2 glob ulin measurement by electrophoresis (mass/volume)on 03-03-2024 Alpha 2 globulin Elph [Mass/Vol] 0.7 g/dL 0.4-1.0 [facility] Serum or plasma anion gap de terminationon 03-03-2024 Anion gap [Moles/Vol] 15.9 mmol/L [facility] Serum or plasma beta globuli n measurement by electrophoresis (mass/volume)on 03-03-2024 Beta globulin Elph [Mass/Vol] 1.0 g/dL 0.7-1.3 [facility] Serum or plasma gamma globul in measurement by electrophoresis (mass/volume)on 03-03-2024 Gamma globulin Elph [Mass/Vol] 0.8 g/dL 0.4-1.8 [facility] Serum or plasma immunoelectr ophoresis interpretationon 03-03-2024 Interpretation IEP [Interp] Comment . [facility] Comment on above: No monoclonality det ected. Estimated glomerular filtrat ion rate (GFR) non- Americanon 02-10-2024 GFR/1.73 sq M.predicted among non-blacks MDRD (S/P/Bld) [Vol rate/Area] 27 mL/min/{1.73_m2} >=60 [facility] Globulin Calc (S) [Mass/Vol] on 02-10-2024 Globulin (S) [Mass/Vol] 3.7 g/dL [facility] Laboratory - Chemistry and C hemistry - challengeon 02-10-2024 Albumin [Mass/Vol] 3.3 g/dL 3.4-5.0 [facility] ALP [Catalytic activity/Vol] 174 U/L 46-116 [facility] ALT [Catalytic activity/Vol] 24 U/L 14-59 [facility] Amylase [Catalytic activity/Vol] 16 U/L 25-115 [facility] AST [Catalytic activity/Vol] 19 U/L 15-37 [facility] Bilirubin [Mass/Vol] 0.4 mg/dL 0.2-1.0 [facility] Calcium [Mass/Vol] 8.6 mg/dL 8.5-10.1 [facility] Chloride [Moles/Vol] 107 mmol/L 98-107 [facility] CO2 [Moles/Vol] 26.8 mmol/L 21.0-32.0 [facility] Creatinine [Mass/Vol] 1.81 mg/dL 0.55-1.02 [facility] GFR/1.73 sq M.predicted MDRD (S/P/Bld) [Vol rate/Area] 33 mL/min/{1.73_m2} >=60 [facility] Glucose [Mass/Vol] 85 mg/dL 74-106 [facility] Lipase [Catalytic activity/Vol] 13.0 U/L 16.0-77.0 [facility] Potassium [Moles/Vol] 4.6 mmol/L 3.5-5.1 [facility] Protein [Mass/Vol] 7.0 g/dL 6.4-8.2 [facility] Sodium [Moles/Vol] 143 mmol/L 136-145 [facility] Urea nitrogen [Mass/Vol] 25.0 mg/dL 7.0-18.0 [facility] Urea nitrogen/Creatinine [Mass ratio] 13.8 mg/mg [facility] Serum or plasma albumin/glob ulin mass ratioon 02-10-2024 Albumin/Globulin [Mass ratio] 0.9 {ratio} [facility] Serum or plasma anion gap de terminationon 02-10-2024 Anion gap [Moles/Vol] 13.8 mmol/L [facility] Serum or plasma cancer antig en 19-9 measurement (units/volume)on 02-10-2024 Cancer Ag 19-9 Qn 13 [arb'U]/mL 0-35 [facility] Comment on above: [facility] [place] ectrochemiluminescence Immunoassay(ECLIA)Values obtained with different assay methods or kits cannotbe used interchangeably. Results cannot be interpreted asabsolute evidence of the presence or absence of malignantdisease.Performed at: [employer] [address] [id number] Director: Junaid Sawyer PhD, Phone: [phone] No Panel Informationon 09-08 BLANK _ [facility] Implant Date 05/22/2015 [facility] Model 5076 CapSureFix [facility] [facility] PACEMAKER CLINIC CHECKon AV Delay Adaptive Paced Minimum (ms) 180 ms [facility] AV Delay Adaptive Sensed Minimum (ms) 150 ms [facility] AV Delay Adaptive Status DISABLED [facility] Battery Voltage (volts) 2.94 V [facility] RA Pacing Amplitude (volts) 1.5 V [facility] RA Pacing Polarity BI [facility] RA Pacing Pulse Width (ms) 0.4 ms [facility] RA Sensing Amplitude (mvolts) 0.3 mV [facility] RA Sensing Blanking Period (ms) 150 ms [facility] RA Sensing Polarity BI [facility] RA Sensing Refractory Period (ms) Auto [facility] RV Pacing Amplitude (volts) 2 V [facility] RV Pacing Polarity BI [facility] RV Pacing Pulse Width (ms) 0.4 ms [facility] RV Sensing Amplitude (mvolts) 0.9 mV [facility] RV Sensing Blanking Period (ms) 200 ms [facility] RV Sensing Polarity BI [facility] Hysteresis Rate (bpm) DISABLED [facility] Lead1 Mfg MDT [facility] Lead2 Mfg MDT [facility] Location RV [facility] Location RA [facility] Lower Rate (bpm) 60 {beats}/min [facility] Max Sensor Rate (bmp) 130 {beats}/min [facility] Model [id number] [facility] PM-Device Mfg MDT [facility] PM-Percent Pacing (A) 99.4 % [facility] PM-Percent Pacing (V) 0.24 % [facility] PM-PMT Intervention ENABLED [facility] PM-PVC Intervention ENABLED [facility] PM-Rate Modulation Acceleration Reaction 30 s [facility] PM-Rate Modulation ADL Rate (bpm) 100 {beats}/min [facility] PM-Rate Modulation Deceleration Exercise [facility] PM-Rate Modulation Threshold MediumLow [facility] RA Bipolar Impedance ohms 456 ohm [facility] RA Unipolar Impedance ohms 418 ohm [facility] RV Bipolar Impedance ohms 551 ohm [facility] RV Unipolar Impedance 532 ohm [facility] Serial Number [id number] [facility] Serial Number [id number] [facility] Serial Number [id number] [facility] Thresh RA Capture Amplitude (volts) 0.5 V [facility] Thresh RA Capture Duration (ms) 0.4 ms [facility] Thresh RA Sensing Amplitude (mvolts) 1.5 mV [facility] Thresh RV Capture Amplitude (volts) 0.75 V [facility] Thresh RV Capture Duration (ms) 0.4 ms [facility] Thresh RV Sensing Amplitude (mvolts) 13.125 mV [facility] Tracking Rate (bpm) 130 {beats}/min [facility] Basophils Auto (Bld) [#/Vol] Ordered By: Niki Weeks on 08-05-2023 Basophils (Bld) [#/Vol] 0.0 10*3/uL 0.0-0.2 [facility] Basophils/100 WBC Auto (Bld) Ordered By: Niki Weeks on 08-05-2023 Basophils/100 WBC (Bld) 0.2 % . [facility] Calcium [Mass/volume] in Ser um or PlasmaOrdered By: Niki Weeks on 08-05-2023 Calcium [Mass/Vol] 8.1 mg/dL 8.6-10.3 [facility] Carbon dioxide, total [Moles /volume] in Serum or PlasmaOrdered By: Niki Weeks on 08-05-2023 CO2 [Moles/Vol] 25.2 mmol/L 21.0-31.0 [facility] Chloride [Moles/volume] in S akila or PlasmaOrdered By: Niki Weeks on 08-05-2023 Chloride [Moles/Vol] 111 mmol/L 98-107 [facility] Creatinine [Mass/volume] in Serum or PlasmaOrdered By: Niki Weeks on 08-05-2023 Creatinine [Mass/Vol] 1.43 mg/dL 0.60-1.20 [facility] Eosinophils Auto (Bld) [#/Vo l]Ordered By: Niki Weeks on 08-05-2023 Eosinophils (Bld) [#/Vol] 0.1 10*3/uL 0.0-0.45 [facility] Eosinophils/100 WBC Auto (Bl d)Ordered By: Niki Weeks on 08-05-2023 Eosinophils/100 WBC (Bld) 1.7 % . [facility] Erythrocyte distribution wid th Auto (RBC) [Ratio]Ordered By: Niki Weeks on 08-05-2023 Erythrocyte distribution width (RBC) [Ratio] 13.5 % 11.9-15.3 [facility] Glucose [Mass/volume] in Ser um or PlasmaOrdered By: Niki Weeks on 08-05-2023 Glucose [Mass/Vol] 121 mg/dL 70-100 [facility] Comment on above: ADA recommended refe rence rangeRandom Glucose Reference Range is dependent on time and content of last meal. Glucose of more than 200 mg/dL in a nonstressed, ambulatory subject supports the diagnosis of Diabetes Mellitus. Hematocrit Auto (Bld) [Volum e fraction]Ordered By: Niki Weeks on 08-05-2023 Hematocrit (Bld) [Volume fraction] 29.9 % 34.0-46.4 [facility] Hemoglobin [Mass/volume] in BloodOrdered By: Niki Weeks 08-05-2023 Hemoglobin (Bld) [Mass/Vol] 10.0 g/dL 11.8-15.4 [facility] Leukocytes [#/volume] correc tanesha for nucleated erythrocytes in Blood by Automated counOrdered By: Niki Weeks on 08-05-2023 WBC corrected for nucl RBC Auto (Bld) [#/Vol] 7.3 10*3/uL 3.8-11.6 [facility] Lymphocytes Auto (Bld) [#/Vo l]Ordered By: Niki Blades on 08-05-2023 Lymphocytes (Bld) [#/Vol] 0.9 10*3/uL 1.00-4.8 [facility] Lymphocytes/100 WBC Auto (Bl d)Ordered By: Niki Blades on 08-05-2023 Lymphocytes/100 WBC (Bld) 11.8 % . [facility] MCH Auto (RBC) [Entitic mass ]Ordered By: Niki Blades on 08-05-2023 MCH (RBC) [Entitic mass] 31.9 pg 24.7-34.3 [facility] MCHC Auto (RBC) [Mass/Vol]Or dered By: Niki Blades on 08-05-2023 MCHC (RBC) [Mass/Vol] 33.5 g/dL 32.0-35.0 [facility] MCV Auto (RBC) [Entitic vol] Ordered By: Niki Blades on 08-05-2023 MCV (RBC) [Entitic vol] 95.1 fL 80-100 [facility] Monocytes Auto (Bld) [#/Vol] Ordered By: Niki Blades on 08-05-2023 Monocytes (Bld) [#/Vol] 0.7 10*3/uL 0.0-0.8 [facility] Monocytes/100 WBC Auto (Bld) Ordered By: Niki Blades on 08-05-2023 Monocytes/100 WBC (Bld) 9.2 % . [facility] Neutrophils Auto (Bld) [#/Vo l]Ordered By: Niki Blades on 08-05-2023 Neutrophils (Bld) [#/Vol] 5.6 10*3/uL 1.8-7.7 [facility] Neutrophils/100 WBC Auto (Bl d)Ordered By: Niki Blades on 08-05-2023 Neutrophils/100 WBC (Bld) 77.1 % . [facility] No Panel InformationOrdered By: Niki Blades on 08-05-2023 Estimated GFR (CKD-EPI) 38.727 mL/Min [facility] Creatinine Clearance (Chem 38.09 [facility] Nucleated erythrocytes [Pres ence] in Blood by Automated countOrdered By: Niki Blades on 08-05-2023 Nucleated RBC Auto Ql (Bld) 0.4 /100{WBC} 0-0.5 [facility] Platelet mean volume Auto (B ld) [Entitic vol]Ordered By: Niki Blades on 08-05-2023 Platelet mean volume (Bld) [Entitic vol] 7.6 fL 6.3-10.7 [facility] Platelets Auto (Bld) [#/Vol] Ordered By: Niki Blades on 08-05-2023 Platelets (Bld) [#/Vol] 147 10*3/uL 150-450 [facility] Potassium [Moles/volume] in Serum or PlasmaOrdered By: Niki Blades on 08-05-2023 Potassium [Moles/Vol] 4.4 mmol/L 3.5-5.1 [facility] RBC Auto (Bld) [#/Vol]Ordere d By: Niki Blades on 08-05-2023 RBC (Bld) [#/Vol] 3.14 10*6/uL 3.60-5.00 [facility] Serum or plasma anion gap de terminationOrdered By: Niki Blades on 08-05-2023 Anion gap [Moles/Vol] 7.2 mmol/L 6.0-15.0 [facility] Sodium [Moles/volume] in Ser um or PlasmaOrdered By: Niki Blades on 08-05-2023 Sodium [Moles/Vol] 139 mmol/L 136-145 [facility] Urea nitrogen [Mass/volume] in Serum or PlasmaOrdered By: Niki Blades on 08-05-2023 Urea nitrogen [Mass/Vol] 25 mg/dL 7-25 [facility] WBC Auto (Bld) [#/Vol]Ordere d By: Niki Blades on 08-05-2023 WBC (Bld) [#/Vol] 7.3 10*3/uL 3.8-11.6 [facility] Activated partial thrombopla stin time (aPTT) in platelet poor plasma by coagulation aOrdered By: Cj Gamboa on 08-03-2023 aPTT Coag (PPP) [Time] 44.3 s 25.1-36.5 [facility] Comment on above: A hematocrit value g reater than 55% may lead to inaccurate results in coagulation testing. Patients having hematocrit values >55% require a special collection tube for coagulation studies. Please contact the laboratory at [phone] for redraw instructions. INR in Platelet poor plasma by Coagulation assayOrdered By: Cj Gamboa on 08-03-2023 INR Coag (PPP) [Relative time] 2.1 {INR} [facility] Comment on above: INR Therapeutic Rang e [...] PT Coag (PPP) [Time] 24.8 s 9.0-12.9 [facility] Comment on above: A hematocrit value g reater than 55% may lead to inaccurate results in coagulation testing. Patients having hematocrit values >55% require a special collection tube for coagulation studies. Please contact the laboratory at [phone] for redraw instructions. Basophils Auto (Bld) [#/Vol] Ordered By: Niki Weeks on 07-20-2023 Basophils (Bld) [#/Vol] 0.0 10*3/uL 0.0-0.2 [facility] Basophils/100 WBC Auto (Bld) Ordered By: Niki Weeks on 07-20-2023 Basophils/100 WBC (Bld) 0.6 % . [facility] Bilirubin Test strip Ql (U)O rdered By: Niki Weeks on 07-20-2023 Bilirubin Ql (U) Negative Negative [facility] Calcium [Mass/volume] in Ser um or PlasmaOrdered By: Niki Blades on 07-20-2023 Calcium [Mass/Vol] 8.6 mg/dL 8.6-10.3 [facility] Carbon dioxide, total [Moles /volume] in Serum or PlasmaOrdered By: Niki Blades on 07-20-2023 CO2 [Moles/Vol] 26.3 mmol/L 21.0-31.0 [facility] Chloride [Moles/volume] in S akila or PlasmaOrdered By: Niki Blades on 07-20-2023 Chloride [Moles/Vol] 109 mmol/L 98-107 [facility] Color Auto (U)Ordered By: Simpson Blades on 07-20-2023 Color (U) Yellow Yellow [facility] Creatinine [Mass/volume] in Serum or PlasmaOrdered By: Niki Blades on 07-20-2023 Creatinine [Mass/Vol] 1.52 mg/dL 0.60-1.20 [facility] Eosinophils Auto (Bld) [#/Vo l]Ordered By: Niki Blades on 07-20-2023 Eosinophils (Bld) [#/Vol] 0.3 10*3/uL 0.0-0.45 [facility] Eosinophils/100 WBC Auto (Bl d)Ordered By: Niki Blades on 07-20-2023 Eosinophils/100 WBC (Bld) 4.9 % . [facility] Erythrocyte distribution wid th Auto (RBC) [Ratio]Ordered By: Niki Blades on 07-20-2023 Erythrocyte distribution width (RBC) [Ratio] 13.5 % 11.9-15.3 [facility] Glucose [Mass/volume] in Ser um or PlasmaOrdered By: Niki Blades on 07-20-2023 Glucose [Mass/Vol] 120 mg/dL 70-100 [facility] Comment on above: ADA recommended refe rence rangeRandom Glucose Reference Range is dependent on time and content of last meal. Glucose of more than 200 mg/dL in a nonstressed, ambulatory subject supports the diagnosis of Diabetes Mellitus. Hematocrit Auto (Bld) [Volum e fraction]Ordered By: Niki Weeks on 07-20-2023 Hematocrit (Bld) [Volume fraction] 38.3 % 34.0-46.4 [facility] Hemoglobin [Mass/volume] in BloodOrdered By: Niki Blades on 07-20-2023 Hemoglobin (Bld) [Mass/Vol] 12.6 g/dL 11.8-15.4 [facility] Ketones Auto test strip (U) [Mass/Vol]Ordered By: Niki Rms on 07-20-2023 Ketones (U) [Mass/Vol] Negative Negative [facility] Leukocytes [#/volume] correc tanesha for nucleated erythrocytes in Blood by Automated counOrdered By: Niki Blades on 07-20-2023 WBC corrected for nucl RBC Auto (Bld) [#/Vol] 5.2 10*3/uL 3.8-11.6 [facility] Lymphocytes Auto (Bld) [#/Vo l]Ordered By: Niki Blades on 07-20-2023 Lymphocytes (Bld) [#/Vol] 0.7 10*3/uL 1.00-4.8 [facility] Lymphocytes/100 WBC Auto (Bl d)Ordered By: Niki Blades on 07-20-2023 Lymphocytes/100 WBC (Bld) 13.8 % . [facility] MCH Auto (RBC) [Entitic mass ]Ordered By: Niki Blades on 07-20-2023 MCH (RBC) [Entitic mass] 30.9 pg 24.7-34.3 [facility] MCHC Auto (RBC) [Mass/Vol]Or dered By: Niki Blades on 07-20-2023 MCHC (RBC) [Mass/Vol] 33.0 g/dL 32.0-35.0 [facility] MCV Auto (RBC) [Entitic vol] Ordered By: Niki Blades on 07-20-2023 MCV (RBC) [Entitic vol] 93.7 fL 80-100 [facility] Monocytes Auto (Bld) [#/Vol] Ordered By: Niki Blades on 07-20-2023 Monocytes (Bld) [#/Vol] 0.4 10*3/uL 0.0-0.8 [facility] Monocytes/100 WBC Auto (Bld) Ordered By: Niki Weeks on 07-20-2023 Monocytes/100 WBC (Bld) 6.9 % . [facility] Neutrophils Auto (Bld) [#/Vo l]Ordered By: Niki Weeks on 07-20-2023 Neutrophils (Bld) [#/Vol] 3.8 10*3/uL 1.8-7.7 [facility] Neutrophils/100 WBC Auto (Bl d)Ordered By: Niki Weeks on 07-20-2023 Neutrophils/100 WBC (Bld) 73.8 % . [facility] Nitrite Test strip Ql (U)Ord ered By: Niki Weeks on 07-20-2023 Nitrite Ql (U) Negative Negative [facility] No Panel InformationOrdered By: Niki Weeks on 07-20-2023 Estimated GFR (CKD-EPI) 35.992 mL/Min [facility] Creatinine Clearance (Chem N/A [facility] Nucleated erythrocytes [Pres ence] in Blood by Automated countOrdered By: Niki Weeks on 07-20-2023 Nucleated RBC Auto Ql (Bld) 0.1 /100{WBC} 0-0.5 [facility] Platelet mean volume Auto (B ld) [Entitic vol]Ordered By: Niki Weeks on 07-20-2023 Platelet mean volume (Bld) [Entitic vol] 7.2 fL 6.3-10.7 [facility] Platelets Auto (Bld) [#/Vol] Ordered By: Niki Weeks on 07-20-2023 Platelets (Bld) [#/Vol] 194 10*3/uL 150-450 [facility] Potassium [Moles/volume] in Serum or PlasmaOrdered By: Niki Weeks on 07-20-2023 Potassium [Moles/Vol] 4.6 mmol/L 3.5-5.1 [facility] Protein Auto test strip (U) [Mass/Vol]Ordered By: Niki Weeks on 07-20-2023 Protein (U) [Mass/Vol] Negative Negative [facility] RBC Auto (Bld) [#/Vol]Ordere d By: Niki Weeks on 07-20-2023 RBC (Bld) [#/Vol] 4.09 10*6/uL 3.60-5.00 [facility] Serum or plasma anion gap de terminationOrdered By: Niki Weeks on 07-20-2023 Anion gap [Moles/Vol] 9.3 mmol/L 6.0-15.0 [facility] Sodium [Moles/volume] in Ser um or PlasmaOrdered By: Niki Weeks on 07-20-2023 Sodium [Moles/Vol] 140 mmol/L 136-145 [facility] Specific gravity Auto test s trip (U) [Rel density]Ordered By: Niki Weeks on 07-20-2023 Specific gravity (U) [Rel density] 1.021 1.001-1.03 0 [facility] Urea nitrogen [Mass/volume] in Serum or PlasmaOrdered By: Niki Weeks on 07-20-2023 Urea nitrogen [Mass/Vol] 30 mg/dL 7-25 [facility] Urine clarity by refractomet ry automatedOrdered By: Niki Weeks on 07-20-2023 Clarity Refractometry automated (U) Clear Clear [facility] Urine glucose measurement by automated test strip (mass/volume)Ordered By: Niki Weeks on 07-20-2023 Glucose Auto test strip (U) [Mass/Vol] Normal mg/dL Normal [facility] Urine hemoglobin detection b y automated test stripOrdered By: Niki Weeks on 07-20-2023 Hemoglobin Auto test strip Ql (U) Negative Negative [facility] Urine leukocyte esterase det ection by automated test stripOrdered By: Niki Weeks on 07-20-2023 Leukocyte esterase Auto test strip Ql (U) Negative Negative [facility] Urobilinogen Auto test strip (U) [Mass/Vol]Ordered By: Niki Weeks on 07-20-2023 Urobilinogen (U) [Mass/Vol] Normal mg/dL Normal [facility] WBC Auto (Bld) [#/Vol]Ordere d By: Niki Weeks on 07-20-2023 WBC (Bld) [#/Vol] 5.2 10*3/uL 3.8-11.6 [facility] pH Auto test strip (U)Ordere d By: Niki Weeks on 07-20-2023 pH (U) 5.5 [pH] 5.0-9.0 [facility] No Panel Informationon 06-16 BLANK _ [facility] Implant Date 05/22/2015 [facility] Model 5076 CapSureFix Novus [facility] PACEMAKER REMOTE CHECKon AV Delay Adaptive Paced Minimum (ms) 180 ms [facility] AV Delay Adaptive Sensed Minimum (ms) 150 ms [facility] AV Delay Adaptive Status DISABLED [facility] Battery Voltage (volts) 2.94 V [facility] RA Pacing Amplitude (volts) 1.5 V [facility] RA Pacing Polarity BI [facility] RA Pacing Pulse Width (ms) 0.4 ms [facility] RA Sensing Amplitude (mvolts) 0.3 mV [facility] RA Sensing Blanking Period (ms) 150 ms [facility] RA Sensing Polarity BI [facility] RA Sensing Refractory Period (ms) Auto [facility] RV Pacing Amplitude (volts) 2 V [facility] RV Pacing Polarity BI [facility] RV Pacing Pulse Width (ms) 0.4 ms [facility] RV Sensing Amplitude (mvolts) 0.9 mV [facility] RV Sensing Blanking Period (ms) 200 ms [facility] RV Sensing Polarity BI [facility] Hysteresis Rate (bpm) DISABLED [facility] Lead1 Jorge KELLER [facility] Lead2 Jorge KELLER [facility] Location RV [facility] Location RA [facility] Lower Rate (bpm) 60 {beats}/min [facility] Max Sensor Rate (bmp) 130 {beats}/min [facility] Model [id number] [facility] PM-Device Jorge KELLER [facility] PM-Percent Pacing (A) 99.76 % [facility] PM-Percent Pacing (V) 0.11 % [facility] PM-PMT Intervention ENABLED [facility] PM-PVC Intervention ENABLED [facility] PM-Rate Modulation Acceleration Reaction 30 s [facility] PM-Rate Modulation ADL Rate (bpm) 100 {beats}/min [facility] PM-Rate Modulation Deceleration Exercise [facility] PM-Rate Modulation Threshold MediumLow [facility] RA Bipolar Impedance ohms 437 ohm [facility] RA Unipolar Impedance ohms 399 ohm [facility] RV Bipolar Impedance ohms 532 ohm [facility] RV Unipolar Impedance 494 ohm [facility] Serial Number [id number] [facility] Serial Number [id number] [facility] Serial Number [id number] [facility] Thresh RA Capture Amplitude (volts) 0.5 V [facility] Thresh RA Capture Duration (ms) 0.4 ms [facility] Thresh RA Sensing Amplitude (mvolts) 2.25 mV [facility] Thresh RV Capture Amplitude (volts) 0.75 V [facility] Thresh RV Capture Duration (ms) 0.4 ms [facility]resh RV Sensing Amplitude (mvolts) 12.875 mV [facility] Tracking Rate (bpm) 130 {beats}/min [facility] Creatinine (Bld) [Mass/Vol]O rdered By: Broderick Howard on 06-04-2023 Creatinine [Mass/Vol] 1.6 mg/dL 0.6-1.3 [facility] Comment on above: ER/ESD physician is notified/shown all ISTAT results.Critical values may be confirmed by laboratory testing ifdeemed necessary by ER attending doctor. No Panel Informationon 02-24 BLANK _ [facility] Implant Date 05/22/2015 [facility] Model 5076 [employer] Nov[employer] [facility] PACEMAKER REMOTE CHECKon AV Delay Adaptive Paced Minimum (ms) 180 ms [facility] AV Delay Adaptive Sensed Minimum (ms) 150 ms [facility] AV Delay Adaptive Status DISABLED [facility] Battery Voltage (volts) 2.95 V [facility] RA Pacing Amplitude (volts) 1.5 V [facility] RA Pacing Polarity BI [facility] RA Pacing Pulse Width (ms) 0.4 ms [facility] RA Sensing Amplitude (mvolts) 0.3 mV [facility] RA Sensing Blanking Period (ms) 150 ms [facility] RA Sensing Polarity BI [facility] RA Sensing Refractory Period (ms) Auto [facility] RV Pacing Amplitude (volts) 2 V [facility] RV Pacing Polarity BI [facility] RV Pacing Pulse Width (ms) 0.4 ms [facility] RV Sensing Amplitude (mvolts) 0.9 mV [facility] RV Sensing Blanking Period (ms) 200 ms [facility] RV Sensing Polarity BI [facility] Hysteresis Rate (bpm) DISABLED [facility] Lead1 Mfg MDT [facility] Lead2 Mfg MDT [facility] Location RV [facility] Location RA [facility] Lower Rate (bpm) 60 {beats}/min [facility] Max Sensor Rate (bmp) 130 {beats}/min [facility] Model [id number] [facility] PM-Device Mfg MDT [facility] PM-Percent Pacing (A) 99.67 % [facility] PM-Percent Pacing (V) 0.2 % [facility] PM-PMT Intervention ENABLED [facility] PM-PVC Intervention ENABLED [facility] PM-Rate Modulation Acceleration Reaction 30 s [facility] PM-Rate Modulation ADL Rate (bpm) 100 {beats}/min [facility] PM-Rate Modulation Deceleration Exercise [facility] PM-Rate Modulation Threshold MediumLow [facility] RA Bipolar Impedance ohms 418 ohm [facility] RA Unipolar Impedance ohms 380 ohm [facility] RV Bipolar Impedance ohms 532 ohm [facility] RV Unipolar Impedance 494 ohm [facility] Serial Number [id number] [facility] Serial Number [id number] [facility] Serial Number [id number] [facility] Thresh RA Capture Amplitude (volts) 0.5 V [facility] Thresh RA Capture Duration (ms) 0.4 ms [facility] Thresh RA Sensing Amplitude (mvolts) 2.25 mV [facility] Thresh RV Capture Amplitude (volts) 0.875 V [facility] Thresh RV Capture Duration (ms) 0.4 ms [facility] Thresh RV Sensing Amplitude (mvolts) 12.875 mV [facility] Tracking Rate (bpm) 130 {beats}/min [facility] No Panel Informationon 11-26 BLANK _ [facility] Implant Date 05/22/2015 [facility] Model 5076 [employer] [facility] PACEMAKER REMOTE CHECKon AV Delay Adaptive Paced Minimum (ms) 180 ms [facility] AV Delay Adaptive Sensed Minimum (ms) 150 ms [facility] AV Delay Adaptive Status DISABLED [facility] Battery Voltage (volts) 2.96 V C [facility] RA Pacing Amplitude (volts) 1.5 V [facility] RA Pacing Polarity BI [facility] RA Pacing Pulse Width (ms) 0.4 ms [facility] RA Sensing Amplitude (mvolts) 0.3 mV [facility] RA Sensing Blanking Period (ms) 150 ms [facility] RA Sensing Polarity BI [facility] RA Sensing Refractory Period (ms) Auto [facility] RV Pacing Amplitude (volts) 2 V [facility] RV Pacing Polarity BI [facility] RV Pacing Pulse Width (ms) 0.4 ms [facility] RV Sensing Amplitude (mvolts) 0.9 mV [facility] RV Sensing Blanking Period (ms) 200 ms [facility] RV Sensing Polarity BI [facility] Hysteresis Rate (bpm) DISABLED [facility] Lead1 Mfg MDT [facility] Lead2 Mfg MDT [facility] Location RV [facility] Location RA [facility] Lower Rate (bpm) 60 {beats}/min [facility] Max Sensor Rate (bmp) 130 {beats}/min [facility] Model [id number] [facility] PM-Device Mfg MDT [facility] PM-Percent Pacing (A) 99.43 % [facility] PM-Percent Pacing (V) 0.17 % [facility] PM-PMT Intervention ENABLED [facility] PM-PVC Intervention ENABLED [facility] PM-Rate Modulation Acceleration Reaction 30 s [facility] PM-Rate Modulation ADL Rate (bpm) 100 {beats}/min [facility] PM-Rate Modulation Deceleration Exercise [facility] PM-Rate Modulation Threshold MediumLow [facility] RA Bipolar Impedance ohms 437 ohm [facility] RA Unipolar Impedance ohms 399 ohm [facility] RV Bipolar Impedance ohms 532 ohm [facility] RV Unipolar Impedance 494 ohm [facility] Serial Number [id number] [facility] Serial Number [id number] [facility] Serial Number [id number] [facility] Thresh RA Capture Amplitude (volts) 0.5 V [facility] Thresh RA Capture Duration (ms) 0.4 ms [facility] Thresh RA Sensing Amplitude (mvolts) 1.875 mV [facility] Thresh RV Capture Amplitude (volts) 0.75 V [facility] Thresh RV Capture Duration (ms) 0.4 ms [facility] Thresh RV Sensing Amplitude (mvolts) 11.75 mV [facility] Tracking Rate (bpm) 130 {beats}/min [facility] No Panel Informationon 08-26 BLANK _ [facility] Implant Date 05/22/2015 [facility] Model 5076 [employer] [facility] PACEMAKER REMOTE CHECKon AV Delay Adaptive Paced Minimum (ms) 180 ms [facility] AV Delay Adaptive Sensed Minimum (ms) 150 ms [facility] AV Delay Adaptive Status DISABLED [facility] Battery Voltage (volts) 2.96 V C [facility] RA Pacing Amplitude (volts) 1.5 V [facility] RA Pacing Polarity BI [facility] RA Pacing Pulse Width (ms) 0.4 ms [facility] RA Sensing Amplitude (mvolts) 0.3 mV [facility] RA Sensing Blanking Period (ms) 150 ms [facility] RA Sensing Polarity BI [facility] RA Sensing Refractory Period (ms) Auto [facility] RV Pacing Amplitude (volts) 2 V [facility] RV Pacing Polarity BI [facility] RV Pacing Pulse Width (ms) 0.4 ms [facility] RV Sensing Amplitude (mvolts) 0.9 mV [facility] RV Sensing Blanking Period (ms) 200 ms [facility] RV Sensing Polarity BI [facility] Hysteresis Rate (bpm) DISABLED [facility] Lead1 Mfg MDT [facility] Lead2 Mfg MDT [facility] Location RV [facility] Location RA [facility] Lower Rate (bpm) 60 {beats}/min [facility] Max Sensor Rate (bmp) 130 {beats}/min [facility] Model [id number] [facility] [facility] PM-Device Mfg MDGalo [facility] PM-Percent Pacing (A) 99.6 % [facility] PM-Percent Pacing (V) 0.24 % [facility] PM-PMT Intervention ENABLED [facility] PM-PVC Intervention ENABLED [facility] PM-Rate Modulation Acceleration Reaction 30 s [facility] PM-Rate Modulation ADL Rate (bpm) 100 {beats}/min [facility] PM-Rate Modulation Deceleration Exercise [facility] PM-Rate Modulation Threshold MediumLow [facility] RA Bipolar Impedance ohms 437 ohm [facility] RA Unipolar Impedance [facility] 399 ohm [facility] RV Bipolar Impedance ohms 532 ohm [facility] RV Unipolar Impedance 494 ohm [facility] Serial Number [id number] [facility] Serial Number [id number] [facility] Serial Number [id number] [facility] RA Capture Amplitude (volts) 0.5 V [facility] RA Capture Duration (ms) 0.4 ms [facility] RA Sensing Amplitude (mvolts) 2.5 mV [facility] RV Capture Amplitude (volts) 0.75 V [facility] RV Capture Duration (ms) 0.4 ms [facility] RV Sensing Amplitude (mvolts) 12.125 mV [facility] Tracking Rate (bpm) 130 {beats}/min [facility] US KIDNEYS BLADDERon 022 US KIDNEYS BLADDER EXAMINATION: US [facility] BLADDER HISTORY: Chronic kidney disease [...] EBEN BABCOCK Date: 2022-08-10 19:30 Normal [facility] UA RANDOM W/MICROSCOPICon BACTERIA NONE SEEN Normal NONE SEEN [facility] Comment on above: Performed By: #### U AMIC #### [facility] [address] [address] [address] Leah Felipe Bilirubin Ql (U) Negative Normal NEGATIVE [facility] Comment on above: Performed By: #### U AMIC #### [facility] [address] [address] [address] Leah Felipe CAST NONE SEEN Normal NONE SEEN [facility] Comment on above: Performed By: #### U AMIC #### [facility] [address] [place] [address] Dr. Leah Felipe Clarity (U) CLEAR Normal CLEAR [facility] Comment on above: Performed By: #### U AMIC #### [facility] [address] [place] [address] Dr. Leah Felipe Color (U) LT. YELLOW Normal YELLOW [facility] Comment on above: Performed By: #### U AMIC #### [facility] [address] [place] [address] Dr. Leah Felipe Crystals LM Nom (Urine sed) NONE SEEN Normal NONE SEEN [facility] Comment on above: Performed By: #### U AMIC #### [facility] [address] [place] [address] Dr. Leah Felipe Epithelial cells LM Ql (Urine sed) FEW Abnormal NONE SEEN /RARE [facility] Comment on above: Performed By: #### U AMIC #### [facility] [address] [place] [address] Dr. Leah Felipe Glucose Ql (U) Negative Normal NEGATIVE [facility] Comment on above: Performed By: #### U AMIC #### [facility] [address] [place] [address] Dr. Leah Felipe Hemoglobin Ql (U) Negative Normal NEGATIVE [facility] Comment on above: Performed By: #### U AMIC #### [facility] [address] [place] [address] Dr. Leah Felipe Ketones Ql (U) Negative Normal NEGATIVE [facility] Comment on above: Performed By: #### U AMIC #### [facility] [address] [place] [address] Dr. Leah Felipe LEUKOCYTES Negative Normal NEGATIVE [facility] Comment on above: Performed By: #### U AMIC #### [facility] [address] [place] [address] Dr. Leah Felipe MUCOUS NONE SEEN Normal NONE SEEN [facility] Comment on above: Performed By: #### U AMIC #### [facility] [address] [place] [address] Dr. Leah Felipe Nitrite Ql (U) Negative Normal NEGATIVE [facility] Comment on above: Performed By: #### U AMIC #### [facility] [address] [place] [address] Dr. Leah Felipe pH (U) 6.0 [pH] Normal 5-9 [facility] Comment on above: Performed By: #### U AMIC #### [facility] [address] [place] [address] Dr. Leah Felipe RBC NONE SEEN Abnormal 0-2 [facility] Comment on above: Performed By: #### U AMIC #### [facility] [address] [place] [address] Dr. Leah Felipe SPEC GRAVITY 1.025 Normal 1.005-<=1. 025 [facility] Comment on above: Performed By: #### U AMIC #### [facility] [address] [place] [address] Dr. Leah Felipe UA PROTEIN Negative Normal NEGATIVE/ TRACE [facility] Comment on above: Performed By: #### U AMIC #### [facility] [address] [place] [address] Dr. Leah Felipe Urobilinogen Qn (U) 0.2 {Lin'U}/dL Normal 0.2 - 1. 0 [facility] Comment on above: Performed By: #### U AMIC #### [facility] [address] [place] [address] Dr. Leah Felipe WBC 0-2 Abnormal NONE SEEN [facility] Comment on above: Performed By: #### U AMIC #### [facility] [address] [place] [address] Dr. Leah Felipe URINE T PROTEIN CREAT RATIOo n 08-03-2022 Protein (U) [Mass/Vol] 30.2 mg/dL Critically high <=12.0 [facility] Comment on above: Performed By: #### U RTPCR #### [facility] [address] [place] [address] Dr. Leah Felipe UR PROT CREAT RAT 0.19 Normal [facility] Comment on above: Performed By: #### U RTPCR #### [facility] [address] [place] [address] Dr. Leah Felipe URINE CREAT 159.67 mg/dL Normal 20.00-300. 00 [facility] Comment on above: Performed By: #### U RTPCR #### [facility] [address] [place] [address] Dr. Leah Felipe CBC AUTO DIFFon 07-31-2022 BASO # 0.0 103/ul Normal 0.0-0.1 [facility] Comment on above: Performed By: #### C BC #### [facility] [address] [place] [address] Dr. Leah Felipe Basophils/100 WBC (Bld) 0.6 % Normal 0.2-2.0 [facility] Comment on above: Performed By: #### C BC #### [facility] [address] [place] [address] Dr. Leah Felipe EO # 0.3 103/ul Normal 0.0-0.7 [facility] Comment on above: Performed By: #### C BC #### [facility] [address] [place] [address] Dr. Leah Felipe Eosinophils/100 WBC (Bld) 5.5 % Normal 0.9-7.0 [facility] Comment on above: Performed By: #### C BC #### [facility] [address] [place] [address] Dr. Leah Felipe Erythrocyte distribution width (RBC) [Ratio] 12.5 % Normal 11.0-15.0 [facility] Comment on above: Performed By: #### C BC #### [facility] [address] [place] [address] Dr. Leah Felipe Hematocrit (Bld) [Volume fraction] 39.2 % Normal 36.0-48.0 [facility] Comment on above: Performed By: #### C BC #### [facility] [address] [place] [address] Dr. Leah Felipe Hemoglobin (Bld) [Mass/Vol] 12.5 g/dL Normal 12.0-16.0 [facility] Comment on above: Performed By: #### C BC #### [facility] [address] [place] [address] Dr. Leah Felipe IG # 0.01 10e3/ul Normal 0.00-0.03 [facility] Comment on above: Performed By: #### C BC #### [facility] [address] [place] [address] Dr. Leah Felipe IG % 0.2 % Normal 0.0-0.5 [facility] Comment on above: Performed By: #### C BC #### [facility] [address] [place] [address] Dr. Leah Felipe LYMPH # 0.8 103/ul Critically low 1.2-3.8 [facility] Comment on above: Performed By: #### C BC #### [facility] [address] [place] [address] Dr. Leah Felipe Lymphocytes/100 WBC (Bld) 16.0 % Critically low 20.5-60.0 [facility] Comment on above: Performed By: #### C BC #### [facility] [address] [place] [address] Dr. Leah Felipe MANUAL DIFF REQ NO Normal [facility] Comment on above: Performed By: #### C BC #### [facility] [address] [place] [address] Dr. Leah Felipe MCH (RBC) [Entitic mass] 30.9 pg Normal 26.7-34.0 [facility] Comment on above: Performed By: #### C BC #### [facility] [address] [place] [address] Dr. Leah eFlipe MCHC (RBC) [Mass/Vol] 31.9 g/dL Normal 29.9-35.2 [facility] Comment on above: Performed By: #### C BC #### [facility] [address] [place] [address] Dr. Leah Felipe MCV (RBC) [Entitic vol] 97.0 fL Normal 81.0-99.0 [facility] Comment on above: Performed By: #### C BC #### [facility] [address] [place] [address] Dr. Leah Felipe MONO # 0.4 103/ul Normal 0.3-0.8 [facility] Comment on above: Performed By: #### C BC #### [facility] [address] [place] [address] Dr. Leah Felipe Monocytes/100 WBC (Bld) 8.7 % Normal 1.7-12.0 [facility] Comment on above: Performed By: #### C BC #### [facility] [address] [place] [address] Dr. Leah Felipe NEUT # 3.4 103/ul Normal 1.4-6.5 [facility] Comment on above: Performed By: #### C BC #### [facility] [address] [place] [address] Dr. Laeh Felipe Neutrophils/100 WBC (Bld) 69.0 % Normal 43.0-75.0 [facility] Comment on above: Performed By: #### C BC #### [facility] [address] [place] [address] Dr. Leah Felipe Platelet mean volume (Bld) [Entitic vol] 9.1 fL Critically low 9.5-13.5 [facility] Comment on above: Performed By: #### C BC #### [facility] [address] [place] [address] Dr. Leah Felipe PLT 196 103/ul Normal 150-450 [facility] Comment on above: Performed By: #### C BC #### [facility] [address] [place] [address] Dr. Leah Felipe RBC 4.04 106/ul Critically low 4.20-5.40 [facility] Comment on above: Performed By: #### C BC #### [facility] [address] [place] [address] Dr. Leah Felipe WBC 5.0 103/ul Normal 4.0-11.0 [facility] Comment on above: Performed By: #### C BC #### [facility] [address] [place] [address] Dr. Leah Felipe PROF CHEM 8 (BAS METB)on Anion gap [Moles/Vol] 9.8 mmol/L Normal [facility] Comment on above: Performed By: #### B MP, TSH #### [facility] [address] [place] [address] Dr. Leah Felipe Calcium [Mass/Vol] 8.2 mg/dL Critically low 8.5-10.1 [facility] [place] Comment on above: Performed By: #### B MP, TSH #### [facility] [address] [place] [address] Dr. Leah Felipe Chloride [Moles/Vol] 107 mmol/L Normal 98-107 [facility] Comment on above: Performed By: #### B MP, TSH #### [facility] [address] [place] [address] Dr. Leah Felipe CO2 [Moles/Vol] 26.4 mmol/L Normal 21.0-32.0 [facility] Comment on above: Performed By: #### B MP, TSH #### [facility] [address] [place] [address] Dr. Leah Felipe Creatinine [Mass/Vol] 1.53 mg/dL Critically high 0.55-1.02 [facility] Comment on above: Performed By: #### B MP, TSH #### [facility] [address] [place] [address] Dr. Leah Felipe EGFR-AF AUSTRALIAN 40 mL/min/1.73m2 Critically low >=60 [facility] Comment on above: Performed By: #### B MP, TSH #### [facility] [address] [place] [address] Dr. Leah Felipe EGFR-NON AF [place]STR[place]IAN 33 mL/min/1.73m2 Critically low >=60 [facility] Comment on above: Performed By: #### B MP, TSH #### [facility] [address] [place] [address] Dr. Leah Felipe Glucose [Mass/Vol] 108 mg/dL Critically high 74-106 T [facility] Comment on above: Performed By: #### B MP, TSH #### [facility] [address] [place] [address] Dr. Leah Felipe Potassium [Moles/Vol] 4.2 mmol/L Normal 3.5-5.1 [facility] Comment on above: Performed By: #### B MP, TSH #### [facility] [address] [place] [address] Dr. Leah Felipe Sodium [Moles/Vol] 139 mmol/L Normal 136-145 [facility] Comment on above: Performed By: #### B MP, TSH #### [facility] [address] [place] [address] Dr. Leah Felipe Urea nitrogen [Mass/Vol] 26.0 mg/dL Critically high 7.0-18.0 [facility] Comment on above: Performed By: #### B VENANCIO, TSH #### [facility] [address] [place] [address] Dr. Leah Felipe Urea nitrogen/Creatinine [Mass ratio] 17.0 mg/mg Normal [facility] Comment on above: Performed By: #### B MP, TSH #### [facility] [address] [place] [address] Dr. Leah Felipe TSHon 07-31-2022 TSH 1.650 uIU/mL Normal 0.358-3.74 0 [facility] Comment on above: Performed By: #### B MP, TSH #### [facility] [address] [place] [address] Dr. Leah Felipe VITAMIN B12on 07-31-2022 Cobalamin (Vitamin B12) [Mass/Vol] 378.0 pg/mL Normal 193.0-986. 0 [facility] Comment on above: Performed By: #### V ITB12 #### [facility] [address] [place] [address] Dr. Leah Felipe MG MAMM SCREEN 3D FAVIOLA CADon 07-29-2022 MG MAMM SCREEN 3D FAVIOLA CAD Patient: CASSI RODRIGEZMavis Exam Date: 07/29/2022 : 1950 Gender:F Ordering : DR BRODERICK HOWARD D.O. Admission #: [id number] Family : Order #: [id number] CLICK HERE TO VIEW EXAM RADIOLOGY REPORT [...] pancreatic cancer at age 64. LOCATION: [facility] BREAST COMPOSITION: Heterogeneously dense,which may obscure small [...] MD on 07/29/2022 at 11:19 Normal [facility] CBC panel Auto (Bld)on 07-23 Erythrocyte distribution width (RBC) [Ratio] 12.5 % Normal 11.5-15.0 [facility] Comment on above: Order Comment: Warren almazan Type: BLOOD SPECIMEN Ordering Facility: [facility] Address: [address] [address] Performed By: #### 5 8410-2 #### [facility] CLIA [id number] [facility] [place] [address] [place] Hematocrit (Bld) [Volume fraction] 39.3 % Normal 36.0-46.0 [facility] Comment on above: Order Comment: Warren almazan Type: BLOOD SPECIMEN Ordering Facility: [facility] Address: [address] [address] Performed By: #### 5 8410-2 #### [facility] [place] [id number] [address] [place] [address] [place] Hemoglobin (Bld) [Mass/Vol] 12.5 g/dL Normal 11.5-15.5 [facility] Comment on above: Order Comment: Speci men Type: BLOOD SPECIMEN Ordering Facility: [facility] Address: [address] [place] [address] Performed By: #### 5 8410-2 #### [facility] [place] [id number] [place] [address] [place] MCH (RBC) [Entitic mass] 31.3 pg Normal 26.0-34.0 [facility] Comment on above: Order Comment: Speci men Type: BLOOD SPECIMEN Ordering Facility: [facility] Address: [address] [place] [address] Performed By: #### 5 8410-2 #### [facility] [place] [id number] [address] [place] [address] [place] MCHC (RBC) [Mass/Vol] 31.8 g/dL Normal 30.5-36.0 [facility] Comment on above: Order Comment: Speci men Type: BLOOD SPECIMEN Ordering Facility: [facility] Address: [address] [place] [address] Performed By: #### 5 8410-2 #### [facility] [place] [id number] [address] [place] [address] [place] MCV (RBC) [Entitic vol] 98.5 fL Normal 80.0-100.0 [facility] Comment on above: Order Comment: Speci men Type: BLOOD SPECIMEN Ordering Facility: [facility] Address: [address] [place] [address] Performed By: #### 5 8410-2 #### [facility] [place] [id number] [place] [address] [place] Nucleated RBC (Bld) [#/Vol] 10*3/uL Normal <0.01 [facility] Comment on above: Order Comment: Speci men Type: BLOOD SPECIMEN Ordering Facility: [facility] Address: [address] [place], [place] [id number] Performed By: #### 5 8410-2 #### [facility] CLIA [id number] [address] [place] [address] [place] Platelet mean volume (Bld) [Entitic vol] 9.5 fL Normal 9.0-12.7 [facility] Comment on above: Order Comment: Speci men Type: BLOOD SPECIMEN Ordering Facility: [facility] Address: [address] [place], [place] [address] Performed By: #### 5 8410-2 #### [facility] CLIA [id number] [place] [address] [place] Platelets (Bld) [#/Vol] 214 10*3/uL Normal 150-400 [facility] Comment on above: Order Comment: Speci men Type: BLOOD SPECIMEN Ordering Facility: [facility] Address: [address] [place], [place] [address] Performed By: #### 5 8410-2 #### [facility] CLIA [id number] [address] [place] [address] [place] RBC (Bld) [#/Vol] 3.99 10*6/uL Normal 3.90-5.20 [facility] Comment on above: Order Comment: Speci men Type: BLOOD SPECIMEN Ordering Facility: [facility] Address: [address] [place], [place] [address] Performed By: #### 5 8410-2 #### [facility] CLIA [id number] [address] [place] [address] [place] WBC (Bld) [#/Vol] 5.85 10*3/uL Normal 3.70-11.00 [facility] Comment on above: Order Comment: Speci men Type: BLOOD SPECIMEN Ordering Facility: [facility] Address: [address] [place], [place] [address] Performed By: #### 5 8410-2 #### [facility] CLIA [id number] [facility] [place] [address] [place] Erythrocyte distribution width (RBC) [Ratio] 12.5 % 11.5 - 15.0 % [facility] Hematocrit (Bld) [Volume fraction] 39.3 % 36.0 - 46.0 % [facility] Hemoglobin (Bld) [Mass/Vol] 12.5 g/dL 11.5 - 15.5 g/dL [facility] MCH (RBC) [Entitic mass] 31.3 pg 26.0 - 34.0 pg [facility] MCHC (RBC) [Mass/Vol] 31.8 g/dL 30.5 - 36.0 g/dL [facility] MCV (RBC) [Entitic vol] 98.5 fL 80.0 - 100.0 fL [facility] Nucleated RBC (Bld) [#/Vol] <0.01 k/uL [facility] Platelet mean volume (Bld) [Entitic vol] 9.5 fL 9.0 - 12.7 fL [facility] Platelets (Bld) [#/Vol] 214 10*3/uL 150 - 400 k/uL [facility] RBC (Bld) [#/Vol] 3.99 10*6/uL 3.90 - 5.20 m/uL [facility] WBC (Bld) [#/Vol] 5.85 10*3/uL 3.70 - 11.00 k/uL [facility] TSH BLDon 07-23-2022 TSH Qn 1.890 m[IU]/L 0.270 - 4.200 mIU/L [facility] TSH SerPl-aCncon 07-23-2022 TSH Qn 1.890 m[IU]/L Normal 0.270-4.20 0 [facility] Comment on above: Order Comment: Speci men Type: BLOOD SPECIMEN Ordering Facility: [facility] Address: [address] [place] [address] Performed By: #### 3 016-3 #### [facility] CLIA [id number] [facility] [place] [address] [place] Vital Signs Date Time Vital Sign Value Performing Clinician Facility 08-01-2025 07:23-0400 Body height 157.48 cm Broderick Ball DO Work Phone: [facility] 08-01-2025 07:23-0400 Body weight 86.18 kg Broderick Ball DO Work Phone: [facility] 07-18-2025 09:45-0400 Body height 157.5 cm Randa Reilly MD Work Phone: [facility] 07-18-2025 09:45-0400 Body mass index (BMI) [Ratio] 35.12 kg/m2 Randa Reilly MD Work Phone: [facility] 07-18-2025 09:45-0400 Body weight 87.1 kg Randa Reilly MD Work Phone: [facility] 07-18-2025 09:45-0400 Diastolic blood pressure 74 mm[Hg] Randa Reilly MD Work Phone: [facility] 07-18-2025 09:45-0400 Heart rate 82 /min Randa Reilly MD Work Phone: [facility] 07-18-2025 09:45-0400 Systolic blood pressure 124 mm[Hg] Randa Reilly MD Work Phone: [facility] 07-02-2025 14:58-0400 Body height 157.48 cm Broderick Ball DO Work Phone: [facility] 07-02-2025 14:58-0400 Body mass index (BMI) [Ratio] 34.7 kg/m2 Broderick Ball DO Work Phone: [facility] 07-02-2025 14:58-0400 Body weight 86.18 kg Broderikc Ball DO Work Phone: [facility] 07-02-2025 14:58-0400 Diastolic blood pressure 70 mm[Hg] Broderick Ball DO Work Phone: [facility] 07-02-2025 14:58-0400 Heart rate 82 /min Broderick Ball DO Work Phone: [facility] 07-02-2025 14:58-0400 Respiratory rate 12 /min Broderick Ball DO Work Phone: [facility] 07-02-2025 14:58-0400 Systolic blood pressure 117 mm[Hg] Broderick Ball DO Work Phone: [facility] 05-21-2025 08:03-0400 Body mass index (BMI) [Ratio] 35.19 kg/m2 Elian Doher DO Work Phone: [facility] 05-21-2025 08:03-0400 Body weight 87.27 kg Elian Doher DO Work Phone: [facility] 05-21-2025 08:03-0400 Diastolic blood pressure 60 mm[Hg] Elian Doher DO Work Phone: [facility] 05-21-2025 08:03-0400 Systolic blood pressure 123 mm[Hg] Elian Doher DO Work Phone: [facility] 04-10-2025 11:10-0400 Body height 157.5 cm Randa Reilly MD Work Phone: [facility] 04-10-2025 11:10-0400 Body mass index (BMI) [Ratio] 34.52 kg/m2 Randa Reilly MD Work Phone: [facility] 04-10-2025 11:10-0400 Body weight 85.6 kg Randa Reilly MD Work Phone: [facility] 04-10-2025 11:10-0400 Diastolic blood pressure 72 mm[Hg] Radna Reilly MD Work Phone: [facility] 04-10-2025 11:10-0400 Heart rate 86 /min Randa Reilly MD Work Phone: [facility] 04-10-2025 11:10-0400 Systolic blood pressure 109 mm[Hg] Randa Reilly MD Work Phone: [facility] 02-22-2025 10:40-0400 Body height 157.48 cm Broderick Ball DO Work Phone: [facility] 02-22-2025 10:40-0400 Body mass index (BMI) [Ratio] 36.1 kg/m2 Broderick Ball DO Work Phone: [facility] 02-22-2025 10:40-0400 Body temperature 96.9 [degF] Broderick Ball DO Work Phone: [facility] 02-22-2025 10:40-0400 Body weight 89.58 kg Broderick Ball DO Work Phone: [facility] 02-22-2025 10:40-0400 Diastolic blood pressure 55 mm[Hg] Broderick Ball DO Work Phone: [facility] 02-22-2025 10:40-0400 Heart rate 76 /min Broderick Ball DO Work Phone: [facility] 02-22-2025 10:40-0400 Respiratory rate 16 /min Broderick Ball DO Work Phone: [facility] 02-22-2025 10:40-0400 SaO2% (BldA) [Mass fraction] 98 % Broderick Ball DO Work Phone: [facility] 02-22-2025 10:40-0400 Systolic blood pressure 133 mm[Hg] Broderick Ball DO Work Phone: [facility] 02-21-2025 13:53-0400 Body height 157.48 cm Broderick Ball DO Work Phone: [facility] 02-21-2025 13:53-0400 Body mass index (BMI) [Ratio] 34.5 kg/m2 Broderick Ball DO Work Phone: [facility] 02-21-2025 13:53-0400 Body weight 85.72 kg Broderick Ball DO Work Phone: [facility] 02-21-2025 13:53-0400 Diastolic blood pressure 72 mm[Hg] Broderick Ball DO Work Phone: [facility] 02-21-2025 13:53-0400 Heart rate 75 /min Broderick Ball DO Work Phone: [facility] 02-21-2025 13:53-0400 SaO2% (BldA) [Mass fraction] 100 % Broderick Ball DO Work Phone: [facility] 02-21-2025 13:53-0400 Systolic blood pressure 122 mm[Hg] Broderick Ball DO Work Phone: [facility] 01-05-2025 11:51-0500 Body height 157.5 cm Svitlana Mayfield BLOOD OR BLOOD BANK TECHNICIAN.STRATEGY MANAGER Work Phone: [facility] 01-05-2025 11:51-0500 Body mass index (BMI) [Ratio] 34.96 kg/m2 Svitlana Mayfield BLOOD OR BLOOD BANK TECHNICIAN.STRATEGY MANAGER Work Phone: [facility] 01-05-2025 11:51-0500 Body weight 86.7 kg Svitlana Mayfield BLOOD OR BLOOD BANK TECHNICIAN.STRATEGY MANAGER Work Phone: [facility] 01-05-2025 11:51-0500 Diastolic blood pressure 61 mm[Hg] Svitlana Mayfield BLOOD OR BLOOD BANK TECHNICIAN.STRATEGY MANAGER Work Phone: [facility] 01-05-2025 11:51-0500 Heart rate 86 /min Svitlana Mayfield BLOOD OR BLOOD BANK TECHNICIAN.STRATEGY MANAGER Work Phone: [facility] 01-05-2025 11:51-0500 Systolic blood pressure 127 mm[Hg] Svitlana Mayfield BLOOD OR BLOOD BANK TECHNICIAN.STRATEGY MANAGER Work Phone: [facility] 01-04-2025 13:55-0500 Body height 157.5 cm Alejandro Villar MD, PhD Work Phone: [facility] 01-04-2025 13:55-0500 Body mass index (BMI) [Ratio] 35.08 kg/m2 Alejandro Villar MD, PhD Work Phone: [facility] 01-04-2025 13:55-0500 Body weight 87 kg Alejandro Villar MD, PhD Work Phone: [facility] 01-04-2025 13:55-0500 Diastolic blood pressure 61 mm[Hg] Alejandro Villar MD, PhD Work Phone: [facility] 01-04-2025 13:55-0500 Heart rate 86 /min Alejandro Villar MD, PhD Work Phone: [facility] 01-04-2025 13:55-0500 Systolic blood pressure 127 mm[Hg] Alejandro Villar MD, PhD Work Phone: [facility] 12-08-2024 10:08-0500 Body height 157.48 cm Broderick Ball DO Work Phone: [facility] 12-08-2024 10:08-0500 Body mass index (BMI) [Ratio] 33.1 kg/m2 Broderick Ball DO Work Phone: [facility] 12-08-2024 10:08-0500 Body weight 82.15 kg Broderick Ball DO Work Phone: [facility] 12-08-2024 10:08-0500 Diastolic blood pressure 82 mm[Hg] Broderick Ball DO Work Phone: [facility] 12-08-2024 10:08-0500 Heart rate 73 /min Broderick Ball DO Work Phone: [facility] 12-08-2024 10:08-0500 Respiratory rate 12 /min Broderick Ball DO Work Phone: [facility] 12-08-2024 10:08-0500 Systolic blood pressure 141 mm[Hg] Broderick Ball DO Work Phone: [facility] 11-29-2024 13:43-0500 Body height 157.5 cm Aftab Itzkowitz DO Work Phone: [facility] 11-29-2024 13:43-0500 Body mass index (BMI) [Ratio] 35.3 kg/m2 Aftab Itzkowitz DO Work Phone: [facility] 11-29-2024 13:43-0500 Body weight 87.54 kg Aftab Itzkowitz DO Work Phone: [facility] 11-29-2024 13:43-0500 Diastolic blood pressure 85 mm[Hg] Aftab Itzkowitz DO Work Phone: [facility] 11-29-2024 13:43-0500 Systolic blood pressure 125 mm[Hg] Aftab Itzkowitz DO Work Phone: [facility] 11-28-2024 11:04-0500 Body height 157.48 cm Broderick Ball DO Work Phone: [facility] 11-28-2024 11:04-0500 Body mass index (BMI) [Ratio] 34.2 kg/m2 Broderick Ball DO Work Phone: [facility] 11-28-2024 11:04-0500 Body weight 84.93 kg Broderick Ball DO Work Phone: [facility] 11-28-2024 11:04-0500 Diastolic blood pressure 73 mm[Hg] Broderick Ball DO Work Phone: [facility] 11-28-2024 11:04-0500 Heart rate 83 /min Broderick Ball DO Work Phone: [facility] 11-28-2024 11:04-0500 Respiratory rate 12 /min Broderick Ball DO Work Phone: [facility] 11-28-2024 11:04-0500 Systolic blood pressure 117 mm[Hg] Broderick Ball DO Work Phone: [facility] 11-24-2024 16:28-0500 Diastolic blood pressure 67 mm[Hg] Broderick Ball DO Work Phone: [facility] 11-24-2024 16:28-0500 Heart rate 60 /min Broderick Ball DO Work Phone: [facility] 11-24-2024 16:28-0500 Respiratory rate 18 /min Broderick Ball DO Work Phone: [facility] 11-24-2024 16:28-0500 SaO2% (BldA) [Mass fraction] 99 % Broderick Ball DO Work Phone: [facility] 11-24-2024 16:28-0500 Systolic blood pressure 152 mm[Hg] Broderick Ball DO Work Phone: [facility] 11-24-2024 13:52-0500 Body height 157.48 cm Broderick Ball DO Work Phone: [facility] 11-24-2024 13:52-0500 Body temperature 97.6 [degF] Broderick Ball DO Work Phone: [facility] 11-24-2024 13:52-0500 Body weight 89 kg Broderick Ball DO Work Phone: [facility] 11-24-2024 11:16-0500 Body height 157.48 cm [facility] 11-24-2024 11:16-0500 Body mass index (BMI) [Ratio] 34.2 kg/m2 [facility] 11-24-2024 11:16-0500 Body weight 84.82 kg [facility] 11-24-2024 11:16-0500 Diastolic blood pressure 75 mm[Hg] [facility] 11-24-2024 11:16-0500 Heart rate 82 /min [facility] 11-24-2024 11:16-0500 Respiratory rate 12 /min [facility] 11-24-2024 11:16-0500 Systolic blood pressure 133 mm[Hg] [facility] 11-17-2024 13:45-0500 Body height 157.48 cm [facility] 11-17-2024 13:45-0500 Body mass index (BMI) [Ratio] 34.4 kg/m2 [facility] 11-17-2024 13:45-0500 Body weight 85.5 kg [facility] 11-17-2024 13:45-0500 Diastolic blood pressure 76 mm[Hg] [facility] 11-17-2024 13:45-0500 Heart rate 68 /min [facility] 11-17-2024 13:45-0500 Respiratory rate 12 /min [facility] 11-17-2024 13:45-0500 Systolic blood pressure 129 mm[Hg] [facility] 11-03-2024 15:00-0500 Hourly Rounding Shashi Rh[facility] 11-03-2024 15:00-0500 Promise to Return Shashi Rhiew [facility] 11-03-2024 14:00-0500 Hourly Rounding Shashi Rh[facility] 11-03-2024 14:00-0500 Promise to Return Shashi Rhiew [facility] 11-03-2024 13:30-0500 Hourly Rounding Shashi Rhiew [facility] 11-03-2024 13:00-0500 Promise to Return Shashi Rhiew [facility] 11-03-2024 11:27-0500 Heart rate 58 /min Sh[facility] Rh[facility] 11-03-2024 11:27-0500 SaO2% (BldA) [Mass fraction] 95 % Sh[facility] Rh[facility] 11-03-2024 11:27-0500 Respiratory rate 16 /min Sh[facility] Rh[facility] 11-03-2024 11:27-0500 Diastolic blood pressure 68 mm[Hg] [facility] Rh[facility] 11-03-2024 11:27-0500 Mean blood pressure 83 mm[Hg] [facility] Rh[facility] 11-03-2024 11:27-0500 Systolic blood pressure 113 mm[Hg] [facility] 11-03-2024 11:27-0500 Body temperature 97.52 [degF] [facility] 11-03-2024 07:43-0500 Heart rate 60 /min Sh[facility] Rh[facility] 11-03-2024 07:43-0500 SaO2% (BldA) [Mass fraction] 96 % [facility] Rh[facility] 11-03-2024 07:43-0500 Respiratory rate 16 /min Sh[facility] Rh[facility] 11-03-2024 07:42-0500 Body temperature 97.52 [degF] [facility] Rh[facility] 11-03-2024 07:42-0500 Diastolic blood pressure 70 mm[Hg] [facility] Rh[facility] 11-03-2024 07:42-0500 Mean blood pressure 94 mm[Hg] Sh[facility] Rh[facility] 11-03-2024 07:42-0500 Systolic blood pressure 141 mm[Hg] Sh[facility] Rh[facility] 11-03-2024 04:31-0500 Heart rate 59 /min Shashi Rhiew [facility] 11-03-2024 04:31-0500 SaO2% (BldA) [Mass fraction] 96 % Sh[facility] Rh[facility] 11-03-2024 04:31-0500 Respiratory rate 17 /min Shashi Rhiew [facility] 11-03-2024 04:30-0500 Blood Pressure Location Shashi Rhiew [facility] 11-03-2024 04:30-0500 Diastolic blood pressure 78 mm[Hg] Sh[facility] Rh[facility] 11-03-2024 04:30-0500 Mean blood pressure 99 mm[Hg] Shashi Rhiew [facility] 11-03-2024 04:30-0500 Systolic blood pressure 141 mm[Hg] Sh[facility] Rh[facility] 11-03-2024 00:58-0500 Body temperature 97.52 [degF] Sh[facility] Rhiew [facility] 11-02-2024 16:45-0500 Respiratory rate 9 /min Shashi Rhiew [facility] 11-02-2024 16:20-0500 Blood Pressure Location Shashi Rhiew [facility] 11-02-2024 16:20-0500 Mean blood pressure 91 mm[Hg] Sh[facility] Rh[facility] 11-02-2024 16:20-0500 Respiratory rate 11 /min Shashi Rhiew [facility] 11-02-2024 16:05-0500 Blood Pressure Location Shashi Rhiew [facility] 11-02-2024 16:05-0500 Mean blood pressure 90 mm[Hg] Shashi Rhiew [facility] 11-02-2024 16:05-0500 Respiratory rate 13 /min Shashi Rhiew [facility] 10-27-2024 09:00-0500 Body height 157.48 cm [facility] 10-27-2024 09:00-0500 Body mass index (BMI) [Ratio] 35.2 kg/m2 [facility] 10-27-2024 09:00-0500 Body weight 87.31 kg [facility] 10-27-2024 09:00-0500 Diastolic blood pressure 81 mm[Hg] [facility] 10-27-2024 09:00-0500 Heart rate 69 /min [facility] 10-27-2024 09:00-0500 Respiratory rate 12 /min [facility] 10-27-2024 09:00-0500 Systolic blood pressure 137 mm[Hg] [facility] 09-07-2024 08:48-0400 Body height 157.48 cm DO Broderick Ball Work Phone: [facility] 09-07-2024 08:48-0400 Body mass index (BMI) [Ratio] 35.8 kg/m2 DO Broderick Ball Work Phone: [facility] 09-07-2024 08:48-0400 Body temperature 96.6 [degF] DO Broderick Ball Work Phone: [facility] 09-07-2024 08:48-0400 Body weight 88.9 kg DO Broderick Ball Work Phone: [facility] 09-07-2024 08:48-0400 Diastolic blood pressure 60 mm[Hg] DO Broderick Ball Work Phone: [facility] 09-07-2024 08:48-0400 Heart rate 75 /min DO Broderick Ball Work Phone: [facility] 09-07-2024 08:48-0400 Respiratory rate 16 /min DO Broderick Ball Work Phone: [facility] 09-07-2024 08:48-0400 SaO2% (BldA) [Mass fraction] 98 % DO Broderick Ball Work Phone: [facility] 09-07-2024 08:48-0400 Systolic blood pressure 112 mm[Hg] DO Broderick Ball Work Phone: [facility] 09-05-2024 13:06-0400 Body height 157.5 cm Randa Reilly MD Work Phone: [facility] 09-05-2024 13:06-0400 Body mass index (BMI) [Ratio] 35.93 kg/m2 Randa Reilly MD Work Phone: [facility] 09-05-2024 13:06-0400 Body weight 89.1 kg Randa Reilly MD Work Phone: [facility] 09-05-2024 13:06-0400 Diastolic blood pressure 78 mm[Hg] Randa Reilly MD Work Phone: [facility] 09-05-2024 13:06-0400 Heart rate 84 /min Randa Reilly MD Work Phone: [facility] 09-05-2024 13:06-0400 Systolic blood pressure 133 mm[Hg] Randa Reilly MD Work Phone: [facility] 08-31-2024 09:54-0400 Body height 157.5 cm Kitty Millard MD Work Phone: [facility] 08-31-2024 09:54-0400 Body mass index (BMI) [Ratio] 35.48 kg/m2 Kitty Millard MD Work Phone: [facility] 08-31-2024 09:54-0400 Body weight 88 kg Kitty Millard MD Work Phone: [facility] 08-31-2024 09:54-0400 Diastolic blood pressure 72 mm[Hg] Kitty Millard MD Work Phone: [facility] 08-31-2024 09:54-0400 Heart rate 81 /min Kitty Millard MD Work Phone: [facility] 08-31-2024 09:54-0400 Systolic blood pressure 134 mm[Hg] Kitty Millard MD Work Phone: [facility] 08-30-2024 15:27-0400 Body height 157.48 cm DO Broderick Ball Work Phone: [facility] 08-30-2024 15:27-0400 Body mass index (BMI) [Ratio] 35.5 kg/m2 DO Broderick Ball Work Phone: [facility] 08-30-2024 15:27-0400 Body weight 88.22 kg DO Broderick Ball Work Phone: [facility] 08-30-2024 15:27-0400 Diastolic blood pressure 76 mm[Hg] DO Broderick Ball Work Phone: [facility] 08-30-2024 15:27-0400 Heart rate 83 /min DO Broderick Ball Work Phone: [facility] 08-30-2024 15:27-0400 Respiratory rate 12 /min DO Broderick Ball Work Phone: [facility] 08-30-2024 15:27-0400 Systolic blood pressure 134 mm[Hg] DO Broderick Ball Work Phone: [facility] 08-29-2024 10:50-0400 Body height 157.48 cm DO Broderick Ball Work Phone: [facility] 08-29-2024 10:50-0400 Body mass index (BMI) [Ratio] 35.1 kg/m2 DO Broderick Ball Work Phone: [facility] 08-29-2024 10:50-0400 Body weight 87.08 kg DO Broderick Ball Work Phone: [facility] 08-29-2024 10:50-0400 Diastolic blood pressure 64 mm[Hg] DO Broderick Ball Work Phone: [facility] 08-29-2024 10:50-0400 Heart rate 76 /min DO Broderick Ball Work Phone: [facility] 08-29-2024 10:50-0400 Systolic blood pressure 126 mm[Hg] DO Broderick Ball Work Phone: [facility] 06-29-2024 13:05-0400 Body height 157.5 cm Alejandro Villar MD, PhD Work Phone: [facility] 06-29-2024 13:05-0400 Body mass index (BMI) [Ratio] 34.44 kg/m2 Alejandro Villar MD, PhD Work Phone: [facility] 06-29-2024 13:05-0400 Body weight 85.4 kg Alejandro Villar MD, PhD Work Phone: [facility] 06-29-2024 13:05-0400 Diastolic blood pressure 72 mm[Hg] Alejandro Villar MD, PhD Work Phone: [facility] 06-29-2024 13:05-0400 Heart rate 85 /min Alejandro Villar MD, PhD Work Phone: [facility] 06-29-2024 13:05-0400 Systolic blood pressure 133 mm[Hg] Alejandro Villar MD, PhD Work Phone: [facility] 06-27-2024 14:01-0400 Body height 157.48 cm DO Broderick Ball Work Phone: [facility] 06-27-2024 14:01-0400 Body mass index (BMI) [Ratio] 34.2 kg/m2 DO Broderick Ball Work Phone: [facility] 06-27-2024 14:01-0400 Body weight 84.82 kg DO Broderick Ball Work Phone: [facility] 06-27-2024 14:01-0400 Diastolic blood pressure 74 mm[Hg] DO Broderick Ball Work Phone: [facility] 06-27-2024 14:01-0400 Heart rate 68 /min DO Broderick Ball Work Phone: [facility] 06-27-2024 14:01-0400 Respiratory rate 12 /min DO Broderick Ball Work Phone: [facility] 06-27-2024 14:01-0400 Systolic blood pressure 123 mm[Hg] DO Broderick Ball Work Phone: [facility] 06-08-2024 14:26-0400 Body height 157.48 cm DO Broderick Ball Work Phone: [facility] 06-08-2024 14:26-0400 Body mass index (BMI) [Ratio] 34 kg/m2 DO Broderick Ball Work Phone: [facility] 06-08-2024 14:26-0400 Body temperature 97.6 [degF] DO Broderick Ball Work Phone: [facility] 06-08-2024 14:26-0400 Body weight 84.36 kg DO Broderick Ball Work Phone: [facility] 06-08-2024 14:26-0400 Diastolic blood pressure 70 mm[Hg] DO Broderick Ball Work Phone: [facility] 06-08-2024 14:26-0400 Heart rate 73 /min DO Broderick Ball Work Phone: [facility] 06-08-2024 14:26-0400 Respiratory rate 16 /min DO Broderick Ball Work Phone: [facility] 06-08-2024 14:26-0400 SaO2% (BldA) [Mass fraction] 99 % DO Broderick Ball Work Phone: [facility] 06-08-2024 14:26-0400 Systolic blood pressure 140 mm[Hg] DO Broderick Ball Work Phone: [facility] 05-30-2024 07:27-0400 Body height 157.48 cm DO Broderick Ball Work Phone: [facility] 05-30-2024 07:27-0400 Body weight 86.18 kg DO Broderick Ball Work Phone: [facility] 05-23-2024 11:23-0400 Body height 157.5 cm Randa Reilly MD Work Phone: [facility] 05-23-2024 11:23-0400 Body mass index (BMI) [Ratio] 34.55 kg/m2 Randa Reilly MD Work Phone: [facility] 05-23-2024 11:23-0400 Body weight 85.68 kg Randa Reilly MD Work Phone: [facility] 05-23-2024 11:23-0400 Diastolic blood pressure 72 mm[Hg] Randa Reilly MD Work Phone: [facility] 05-23-2024 11:23-0400 Heart rate 85 /min Randa Reilly MD Work Phone: [facility] 05-23-2024 11:23-0400 Systolic blood pressure 133 mm[Hg] Randa Reilly MD Work Phone: [facility] 04-21-2024 10:00-0400 Body height 157.48 cm DO Broderick Ball Work Phone: [facility] 04-21-2024 10:00-0400 Body mass index (BMI) [Ratio] 34.5 kg/m2 DO Broderick Ball Work Phone: [facility] 04-21-2024 10:00-0400 Body weight 85.72 kg DO Broderick Ball Work Phone: [facility] 03-29-2024 13:34-0400 Body height 157.48 cm DO Broderick Ball Work Phone: [facility] 03-29-2024 13:34-0400 Body mass index (BMI) [Ratio] 33.3 kg/m2 DO Broderick Ball Work Phone: [facility] 03-29-2024 13:34-0400 Body weight 82.78 kg DO Broderick Ball Work Phone: [facility] 03-29-2024 13:34-0400 Diastolic blood pressure 77 mm[Hg] DO Broderick Ball Work Phone: [facility] 03-29-2024 13:34-0400 Heart rate 73 /min DO Broderick Ball Work Phone: [facility] 03-29-2024 13:34-0400 Respiratory rate 12 /min DO Broderick Ball Work Phone: [facility] 03-29-2024 13:34-0400 Systolic blood pressure 124 mm[Hg] DO Broderick Ball Work Phone: [facility] 03-27-2024 11:25-0400 Body height 157.48 cm DO Broderick Ball Work Phone: [facility] 03-27-2024 11:25-0400 Body weight 84.36 kg DO Broderick Ball Work Phone: [facility] 03-07-2024 08:53-0400 Body height 157.5 cm Randa Reilly MD Work Phone: [facility] 03-07-2024 08:53-0400 Body mass index (BMI) [Ratio] 34.06 kg/m2 Randa Reilly MD Work Phone: [facility] 03-07-2024 08:53-0400 Body weight 84.46 kg Randa Reilly MD Work Phone: [facility] 03-07-2024 08:53-0400 Diastolic blood pressure 72 mm[Hg] Randa Reilly MD Work Phone: [facility] 03-07-2024 08:53-0400 Heart rate 85 /min Randa Reilly MD Work Phone: [facility] 03-07-2024 08:53-0400 Systolic blood pressure 133 mm[Hg] Randa Reilly MD Work Phone: [facility] 02-09-2024 14:58-0400 Body height 161.29 cm [facility] 02-09-2024 14:58-0400 Body mass index (BMI) [Ratio] 33.5 kg/m2 [facility] 02-09-2024 14:58-0400 Body weight 87.08 kg [facility] 02-09-2024 14:58-0400 Diastolic blood pressure 71 mm[Hg] [facility] 02-09-2024 14:58-0400 Heart rate 78 /min [facility] 02-09-2024 14:58-0400 Respiratory rate 12 /min [facility] 02-09-2024 14:58-0400 Systolic blood pressure 114 mm[Hg] [facility] 12-23-2023 09:02-0500 Body height 157.5 cm Alejandro Villar MD, PhD Work Phone: [facility] 12-23-2023 09:02-0500 Body temperature 97.59 [degF] Alejandro Villar MD, PhD Work Phone: [facility] 12-23-2023 09:02-0500 Body weight 86.64 kg Alejandro Villar MD, PhD Work Phone: [facility] 12-23-2023 09:02-0500 Diastolic blood pressure 72 mm[Hg] Alejandro Villar MD, PhD Work Phone: [facility] 12-23-2023 09:02-0500 Heart rate 85 /min Alejandro Villar MD, PhD Work Phone: [facility] 12-23-2023 09:02-0500 SaO2% (BldA) [Mass fraction] 100 % Alejandro Villar MD, PhD Work Phone: [facility] 12-23-2023 09:02-0500 Systolic blood pressure 133 mm[Hg] Alejandro Villar MD, PhD Work Phone: [facility] 09-08-2023 14:50-0400 Body height 157.5 cm Mirian Bell BLOOD OR BLOOD BANK TECHNICIAN.STRATEGY MANAGER Work Phone: [facility] 09-08-2023 14:50-0400 Body weight 86.5 kg Mirian Bell BLOOD OR BLOOD BANK TECHNICIAN.STRATEGY MANAGER Work Phone: [facility] 09-08-2023 14:50-0400 Diastolic blood pressure 64 mm[Hg] Mirian Bell BLOOD OR BLOOD BANK TECHNICIAN.STRATEGY MANAGER Work Phone: [facility] 09-08-2023 14:50-0400 Heart rate 62 /min Mirian Bell BLOOD OR BLOOD BANK TECHNICIAN.STRATEGY MANAGER Work Phone: [facility] 09-08-2023 14:50-0400 Systolic blood pressure 130 mm[Hg] Mirian Bell BLOOD OR BLOOD BANK TECHNICIAN.STRATEGY MANAGER Work Phone: [facility] 08-25-2023 10:20-0400 Body height 161.29 cm Niki Blades Other [employer] Other 08-25-2023 10:20-0400 Body mass index (BMI) [Ratio] 34.35 kg/m2 Niki Blades Other [employer] Other 08-25-2023 10:20-0400 Body weight 89.36 kg Niki Blades Other [employer] Other 08-16-2023 10:00-0400 Body height 161.29 cm Niki Blades Other [employer] Other 08-16-2023 10:00-0400 Body mass index (BMI) [Ratio] 34.35 kg/m2 Niki Blades Other [employer] Other 08-16-2023 10:00-0400 Body weight 89.36 kg Niki Blades Other [employer] Other 08-05-2023 07:21-0400 Body temperature 97.8 [degF] DO Broderick Ball Work Phone: [facility] [facility] 08-05-2023 07:21-0400 Diastolic blood pressure 73 mm[Hg] DO Broderick Ball Work Phone: [facility] 08-05-2023 07:21-0400 Heart rate 63 /min DO Broderick Ball Work Phone: [facility] 08-05-2023 07:21-0400 Respiratory rate 14 /min DO Broderick Ball Work Phone: [facility] 08-05-2023 07:21-0400 SaO2% (BldA) [Mass fraction] 97 % DO Broderick Ball Work Phone: [facility] 08-05-2023 07:21-0400 Systolic blood pressure 117 mm[Hg] DO Broderick Ball Work Phone: [facility] 08-05-2023 06:00-0400 Body weight 96.7 kg DO Broderick Ball Work Phone: [facility] 08-04-2023 00:00-0400 Inhaled oxygen flow rate 3 L/min DO Broderick Ball Work Phone: [facility] 08-03-2023 07:02-0400 Body height 157.48 cm DO Broderick Ball Work Phone: [facility] 08-03-2023 07:02-0400 Body mass index (BMI) [Ratio] 35 kg/m2 DO Broderick Ball Work Phone: [facility] 07-07-2023 14:20-0400 Body height 161.29 cm Niki Blades Other [employer] Other 07-07-2023 14:20-0400 Body mass index (BMI) [Ratio] 33.65 kg/m2 Niki Blades Other [employer] Other 07-07-2023 14:20-0400 Body weight 87.54 kg Niki Blades Other [employer] Other 07-07-2023 14:20-0400 Diastolic blood pressure 80 mm[Hg] Niki Blades Other [employer] Other 07-07-2023 14:20-0400 Systolic blood pressure 142 mm[Hg] Niki Blades Other [employer] Other 06-04-2023 08:42-0400 Body height 162.56 cm DO Broderick Ball Work Phone: [facility] 06-04-2023 08:42-0400 Body weight 87.08 kg DO Broderick Ball Work Phone: [facility] 05-06-2023 14:30-0400 Body height 161.29 cm Bertram Sanders Other [employer] Other 05-06-2023 14:30-0400 Body mass index (BMI) [Ratio] 33.3 kg/m2 Bertram Sanders Other [employer] Other 05-06-2023 14:30-0400 Body weight 86.64 kg Bertram Sanders Other [employer] Other 05-06-2023 14:30-0400 Diastolic blood pressure 70 mm[Hg] Bertram Sanders Other [employer] Other 05-06-2023 14:30-0400 Systolic blood pressure 125 mm[Hg] Bertram Sanders Other [employer] Other 05-03-2023 14:30-0400 Body height 161.29 cm Broderick Ball Other [employer] Other 05-03-2023 14:30-0400 Body mass index (BMI) [Ratio] 33.16 kg/m2 Broderick Ball Other [employer] Other 05-03-2023 14:30-0400 Body weight 86.27 kg Broderick Ball Other [employer] Other 05-03-2023 14:30-0400 Diastolic blood pressure 71 mm[Hg] Broderick Ball Other [employer] Other 05-03-2023 14:30-0400 Respiratory rate 12 /min Broderick Ball Other [employer] Other 05-03-2023 14:30-0400 Systolic blood pressure 120 mm[Hg] Broderick Ball Other [employer] Other 03-25-2023 11:00-0400 Body height 161.29 cm Broderick Ball Other [employer] Other 03-25-2023 11:00-0400 Body mass index (BMI) [Ratio] 33.61 kg/m2 Broderick Ball Other [employer] Other 03-25-2023 11:00-0400 Body weight 87.45 kg Broderick Ball Other [employer] Other 03-25-2023 11:00-0400 Diastolic blood pressure 78 mm[Hg] Broderick Ball Other [employer] Other 03-25-2023 11:00-0400 Respiratory rate 12 /min Broderick Ball Other [employer] Other 03-25-2023 11:00-0400 Systolic blood pressure 135 mm[Hg] Broderick Ball Other [employer] Other 01-07-2023 14:15-0500 Body height 161.29 cm Bertram Sanders Other [employer] Other 01-07-2023 14:15-0500 Body mass index (BMI) [Ratio] 32.25 kg/m2 Bertram Sanders Other [employer] Other 01-07-2023 14:15-0500 Body weight 83.92 kg Bertram Sanders Other [employer] Other 01-07-2023 14:15-0500 Diastolic blood pressure 85 mm[Hg] Bertram Sanders Other [employer] Other 01-07-2023 14:15-0500 Systolic blood pressure 155 mm[Hg] Bertram Sanders Other [employer] Other 11-25-2022 11:00-0500 Body height 161.29 cm Broderick Ball Other [employer] Other 11-25-2022 11:00-0500 Body mass index (BMI) [Ratio] 32.25 kg/m2 Broderick Ball Other [employer] Other 11-25-2022 11:00-0500 Body weight 83.92 kg Broderick Ball Other [employer] Other 11-25-2022 11:00-0500 Diastolic blood pressure 78 mm[Hg] Broderick Ball Other [employer] Other 11-25-2022 11:00-0500 Respiratory rate 12 /min Broderick Ball Other [employer] Other 11-25-2022 11:00-0500 Systolic blood pressure 118 mm[Hg] Broderick Ball Other [employer] Other 09-10-2022 13:48-0400 Body height 157.5 cm Alejandro Villar MD, PhD Work Phone: [facility] 09-10-2022 13:48-0400 Body weight 88.27 kg Alejandro Villar MD, PhD Work Phone: [facility] 09-10-2022 13:48-0400 Diastolic blood pressure 86 mm[Hg] Alejandro Villar MD, PhD Work Phone: [facility] 09-10-2022 13:48-0400 Heart rate 76 /min Alejandro Villar MD, PhD Work Phone: [facility] 09-10-2022 13:48-0400 Systolic blood pressure 148 mm[Hg] Alejandro Villar MD, PhD Work Phone: [facility] 07-23-2022 10:09-0400 Body height 160 cm Kitty Millard MD Work Phone: [facility] 07-23-2022 10:09-0400 Body weight 88 kg Kitty Millard MD Work Phone: [facility] 07-23-2022 10:09-0400 Diastolic blood pressure 66 mm[Hg] Kitty Millard MD Work Phone: [facility] 07-23-2022 10:09-0400 Heart rate 63 /min Kitty Millard MD Work Phone: [facility] 07-23-2022 10:09-0400 Systolic blood pressure 136 mm[Hg] Kitty Millard MD Work Phone: [facility] 01-06-2022 11:30-0500 Body height 161.29 cm Bertram Sanders Other [employer] Other 01-06-2022 11:30-0500 Body mass index (BMI) [Ratio] 30.68 kg/m2 Bertram Sanders Other [employer] Other 01-06-2022 11:30-0500 Body weight 79.83 kg Bertram Sanders Other [employer] Other Encounters Encounter Date Encounter Type Care Provider Facility Start: 08-01-2025 End: 08-01-2025 Patient encounter procedure Tiana Brush SALES TRADER-C -[facility] [place] Work Phone: Start: 08-01-2025 End: 08-01-2025 ambulatory Broderick Howard DO Work Phone: [facility] Work Phone: Start: 07-23-2025 End: 07-23-2025 ambulatory Tiana Brush Facility:[facility] Start: 07-23-2025 Non-patient / Non-visit [facility] Start: 07-18-2025 End: 07-18-2025 Patient encounter procedure Randa Reilly MD Work Phone: Neurology Comment on above: Intractable 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 aura and without status migrainosus (Primary Dx) Start: 07-18-2025 End: 07-18-2025 ambulatory RANDA REILLY Facility:[facility] Start: 07-02-2025 End: 07-02-2025 ambulatory Broderick Howard DO Work Phone: [facility] Work Phone: Start: 07-02-2025 End: 07-02-2025 Patient encounter procedure Broderick Howard DO -[facility] Work Phone: Start: 05-21-2025 End: 05-21-2025 Office outpatient new 45 minutes Elian Jones DO Work Phone: Neurology Comment on above: Chronic pain syndrom e (Primary Dx); MCI (mild cognitive impairment); Sinus node dysfunction (HCC); Obesity, Class II, BMI 35-39.9 Start: 05-21-2025 End: 05-21-2025 ambulatory ELIAN JONES Facility:[facility] Start: 04-10-2025 End: 04-10-2025 Patient encounter procedure Randa Reilly MD Work Phone: Neurology Comment on above: Intractable 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 aura and without status migrainosus (Primary Dx) Start: 04-10-2025 End: 04-10-2025 ambulatory RANDA REILLY Facility:[facility] Start: 02-22-2025 End: 02-22-2025 ambulatory Broderick Howard DO Work Phone: [facility] Work Phone: Start: 02-22-2025 End: 02-22-2025 Patient encounter procedure Broderick Howard DO Work Phone: [facility] Work Phone: Start: 02-21-2025 End: 02-21-2025 ambulatory Broderick Howard DO Work Phone: [facility] Work Phone: Start: 02-21-2025 End: 02-21-2025 Patient encounter procedure Broderick Howard DO Work Phone: [facility] Work Phone: Start: 02-12-2025 Non-patient / Non-visit Iesha in Lee DO Work Phone: [facility] Work Phone: Start: 01-23-2025 End: 01-30-2025 Follow-up encounter Alejandro Villar MD, PhD Work Phone: Neurology Start: 01-05-2025 End: 01-05-2025 Patient encounter procedure Svitlana Mayfield APRN.STRATEGY MANAGER Work Phone: Neurology Comment on above: Intractable 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 aura and without status migrainosus (Primary Dx) Start: 01-05-2025 End: 01-05-2025 ambulatory SVITLANA MAYFIELD Facility:[facility] Start: 01-04-2025 End: 01-04-2025 Patient encounter procedure Alejandro Villar MD, PhD Work Phone: Neurology Comment on above: Localization-related (focal) (partial) symptomatic epilepsy and epileptic syndromes with complex partial seizures, intractable, without status epilepticus (HCC) (Primary Dx); Memory loss Start: 01-04-2025 End: 01-04-2025 ambulatory ALEJANDRO VILLAR Facility:[facility] Start: 12-13-2024 End: 12-13-2024 Office outpatient visit 15 minutes Aftab Dey DO Work Phone: [facility] Comment on above: Abdominal wall hemat garrett, subsequent encounter (Primary Dx) Start: 12-13-2024 End: 12-13-2024 ambulatory AFTAB H ITZKOWITZ Not Available Start: 12-09-2024 End: 12-11-2024 Refill Lauren Otero STRATEGY MANAGER Work Phone: Neurology Comment on above: Refill Request Start: 12-08-2024 End: 12-08-2024 ambulatory Broderick Howard DO Work Phone: [facility] Work Phone: Start: 12-08-2024 End: 12-08-2024 Patient encounter procedure Broderick Howard DO Work Phone: [facility] Work Phone: Start: 11-29-2024 End: 11-29-2024 Office outpatient new 45 minutes Aftab H Itzkowitz DO Work Phone: [facility] Comment on above: Abdominal wall hemat garrett, initial encounter (Primary Dx) Start: 11-29-2024 End: 11-29-2024 ambulatory AFTAB H ITZKOWITZ Not Available Start: 11-28-2024 End: 11-28-2024 ambulatory Broderick Howard DO Work Phone: [facility] Work Phone: Start: 11-28-2024 End: 11-28-2024 Patient encounter procedure Broderick Howard DO Work Phone: [facility] Work Phone: Start: 11-24-2024 End: 11-24-2024 Emergency department patient visit Broderick Howard DO Work Phone: [facility]-Emergency Room Work Phone: Start: 11-24-2024 End: 11-24-2024 ambulatory [facility] Work Phone: Start: 11-24-2024 End: 11-24-2024 [facility] encounter [facility] Work [facility]: Start: 11-17-2024 End: 11-17-2024 ambulatory [facility] Work Phone: Start: 11-17-2024 End: 11-17-2024 Patient encounter procedure [facility] Work Phone: Start: 11-02-2024 End: 11-03-2024 ambulatory Shashi B Rhiew Facility:[facility] Start: 11-02-2024 End: 11-03-2024 Patient encounter procedure Shashi B Rhiew [facility] Start: 10-27-2024 End: 10-27-2024 Encounter for other preprocedural examination [facility] Start: 10-27-2024 End: 10-27-2024 Patient encounter procedure [facility] Work Phone: Start: 10-25-2024 Non-patient / Non-visit [facility] Work Phone: Start: 10-25-2024 End: 10-25-2024 ambulatory Shashi B Rhiew Facility:[facility] Start: 10-23-2024 End: 10-23-2024 ambulatory Shashi B Rhiew Facility:[facility] Start: 10-23-2024 End: 10-23-2024 Patient encounter procedure Shashi B Rhiew [facility] Start: 10-02-2024 End: 10-02-2024 ambulatory KITTY WALTERS MILLARD Facility:[facility] Start: 09-07-2024 End: 09-07-2024 ambulatory DO Broderick Lee Work Phone: [facility] Work Phone: Start: 09-07-2024 End: 09-07-2024 Patient encounter procedure DO Broderick Howard Work Phone: [facility] Work Phone: Start: 09-05-2024 End: 09-05-2024 Patient encounter procedure Randa Reilly MD Work Phone: Neurology Comment on above: Intractable 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 aura and without status migrainosus (Primary Dx) Start: 09-05-2024 End: 09-05-2024 ambulatory RANDA REILLY Facility:[facility] Start: 08-31-2024 End: 08-31-2024 ambulatory KITTY MILLARD Facility:[facility] Start: 08-31-2024 End: 08-31-2024 Office outpatient visit 25 minutes Kitty Millard MD Work Phone: Cardiology Comment on above: 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); Cardiac pacemaker in situ; Bradycardia Start: 08-30-2024 End: 08-30-2024 ambulatory DO Broderick Ball Work Phone: [facility] Work Phone: Start: 08-30-2024 End: 08-30-2024 Patient encounter procedure DO Broderick Ball Work Phone: [facility] Work Phone: Start: 08-29-2024 End: 08-29-2024 ambulatory DO Broderick Ball Work Phone: [facility] Work Phone: Start: 08-29-2024 End: 08-29-2024 Patient encounter procedure DO Broderick Ball Work Phone: [facility] Work Phone: Start: 08-29-2024 End: 08-29-2024 ambulatory DO Rboderick Ball Work Phone: [facility] Work Phone: Start: 08-29-2024 End: 08-29-2024 Patient encounter procedure DO Broderick Ball Work Phone: [facility] Gastroenterology Work Phone: Start: 08-28-2024 Non-patient / Non-visit DO Miguel A camargo Ball Work Phone: [facility] Work Phone: Start: 07-05-2024 Non-patient / Non-visit DO Miguel A Howard Work Phone: [facility] Work Phone: Start: 07-05-2024 End: 07-05-2024 ambulatory DO Broderick Howard Work Phone: [facility] Work Phone: Start: 07-05-2024 End: 07-05-2024 Departed Referred DO Broderick Howard Work Phone: [facility] Start: 06-29-2024 Non-patient / Non-visit DO Miguel A Howard Work Phone: [facility] Work Phone: Start: 06-29-2024 End: 06-29-2024 Patient encounter procedure Alejandro Villar MD, PhD Work Phone: Neurology Comment on above: Focal epilepsy with impairment of consciousness, intractable (HCC) (Primary Dx); Partial epilepsy with impairment of consciousness, intractable (HCC) Start: 06-27-2024 End: 06-27-2024 ambulatory DO Broderick Howard Work Phone: [facility] Work Phone: Start: 06-27-2024 End: 06-27-2024 Patient encounter procedure DO Broderick Howard Work Phone: [facility] Work Phone: Start: 06-12-2024 End: 06-12-2024 ambulatory JACK POMPA Not Available Start: 06-08-2024 End: 06-08-2024 ambulatory DO Broderick Ball Work Phone: [facility] Work Phone: Start: 06-08-2024 End: 06-08-2024 Patient encounter procedure DO Broderick Ball Work Phone: [facility] Nephrology [facility] Work Phone: Start: 06-05-2024 Non-patient / Non-visit DO Miguel A Howard Work Phone: [facility] Work Phone: Start: 06-05-2024 End: 06-05-2024 ambulatory Keith Parks MD Facility:[facility] Start: 05-30-2024 End: 05-30-2024 ambulatory DO Broderick Howard Work Phone: [facility] Work Phone: Start: 05-30-2024 End: 05-30-2024 Patient encounter procedure DO Broderick Howard Work Phone: [facility] [place] Work Phone: Start: 05-23-2024 End: 05-23-2024 Patient encounter procedure Randa Reilly MD Work Phone: Neurology Comment on above: Intractable 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 aura and without status migrainosus (Primary Dx) Start: 05-15-2024 Non-patient / Non-visit DO Miguel A Howard Work Phone: [facility] Work Phone: Start: 05-15-2024 End: 05-15-2024 ambulatory Keith Parks MD Facility:[facility] Start: 05-05-2024 Non-patient / Non-visit DO Miguel A camargo Lee Work Phone: [facility] Work Phone: Start: 05-03-2024 End: 05-03-2024 ambulatory DAVID MCFADDEN Not Available Start: 04-21-2024 End: 04-21-2024 ambulatory DO Broderick Howard Work Phone: [facility] Work Phone: Start: 04-21-2024 End: 04-21-2024 Patient encounter procedure DO Broderick Howard Work Phone: [facility] Neurosurgery Work Phone: Start: 03-29-2024 End: 03-29-2024 Patient encounter procedure DO Broderick eLe Work Phone: [facility] Work Phone: Start: 03-28-2024 End: 03-28-2024 Patient encounter procedure DO Broderick Howard Work Phone: [facility] [place] Work Phone: Start: 03-09-2024 End: 03-09-2024 ambulatory DO Broderick Howard Work Phone: [facility] Work Phone: Start: 03-09-2024 End: 03-09-2024 Patient encounter procedure DO Broderick Howard Work Phone: [facility]-Pacemaker Check Start: 03-08-2024 Follow-up encounter Kitty Millard MD Work Phone: [facility] Start: 03-08-2024 Patient encounter procedure Kitty Millard MD Work Phone: [facility] Start: 03-07-2024 End: 03-07-2024 Patient encounter procedure Randa Reilly MD Work Phone: Neurology Comment on above: Intractable 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 aura and without status migrainosus (Primary Dx); Cervicalgia; SHELL (obstructive sleep apnea) Start: 03-03-2024 Non-patient / Non-visit DO Miguel A camargo Ball Work Phone: [facility] Phys[facility] Work Phone: Start: 02-15-2024 Non-patient / Non-visit DO Miguel A camargo Ball Work Phone: [facility] Work Phone: Start: 02-10-2024 Non-patient / Non-visit DO Miguel A camargo Ball Work Phone: [facility] Phys[facility] [employer] Work Phone: Start: 02-09-2024 End: 02-09-2024 ambulatory [facility] Work Phone: Start: 02-09-2024 End: 02-09-2024 Patient encounter procedure [facility] Work Phone: Start: 12-23-2023 End: 12-23-2023 Patient encounter procedure Alejandro Villar MD, PhD Work Phone: Neurology Comment on above: Intractable 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 aura and without status migrainosus (Primary Dx) Start: 11-24-2023 End: 11-24-2023 ambulatory Broderick Lee Other [facility] [employer] Other Start: 11-24-2023 Office outpatient vi sit 15 minutes Broderick Howard [facility] Start: 11-24-2023 End: 11-24-2023 Patient encounter procedure [facility] Work Phone: Start: 09-13-2023 Refill Alejandro wright MD, PhD Work Phone: Neurology Comment on above: Refill Request Patient Update Start: 09-08-2023 Follow-up encounter Kitty Millard MD Work Phone: [facility] Start: 09-08-2023 End: 09-08-2023 Patient encounter procedure Kitty Millard MD Work Phone: [facility] Comment on above: 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); Cardiac pacemaker in situ; Bradycardia Start: 08-25-2023 End: 08-25-2023 ambulatory Niki Blades Other [employer] Other Start: 08-25-2023 Postop follow up vis it related to original px Niki Blades [facility] Neurosurgery Start: 08-16-2023 End: 08-16-2023 ambulatory Niki Blades Other [employer] Other Start: 08-16-2023 Postop follow up vis it related to original px Niki Blades [facility] Neurosurgery Start: 08-13-2023 End: 08-13-2023 ambulatory Broderick Ball Other [employer] Other Start: 08-13-2023 Telephone encounter Broderick Howard FP [facility] Start: 08-12-2023 End: 08-12-2023 ambulatory Niki Blades Other [employer] Other Start: 08-12-2023 Postop follow up vis it related to original px Niki Blades [facility] Neurosurgery Start: 08-03-2023 End: 08-05-2023 Admission to same day surgery center DO Broderick Ball Work Phone: [facility]-Surgery Center [facility] [place] Start: 08-03-2023 End: 08-05-2023 ambulatory DO Broderick Ball Work Phone: [facility] Work Phone: Start: 08-02-2023 End: 08-02-2023 ambulatory Broderick Ball Other [employer] Other Start: 08-02-2023 Telephone encounter Broderick Howard KARISHMA [facility] Start: 07-20-2023 End: 07-20-2023 ambulatory DO Broderick Ball Work Phone: [facility] Work Phone: Start: 07-20-2023 End: 07-20-2023 Patient encounter procedure DO Broderick Ball Work Phone: [facility]-Pre-Surgical Testing Work Phone: Start: 07-09-2023 End: 07-09-2023 ambulatory Niki Blades Other [employer] Other Start: 07-09-2023 Telephone encounter Niki Blades [facility] [employer] Start: 07-07-2023 End: 07-07-2023 ambulatory Niki Weeks Other [employer] Other Start: 07-07-2023 Office outpatient ne w 45 minutes Niki Weeks [facility] Neurosurgery Start: 06-08-2023 Follow-up encounter Kitty Millard MD Work Phone: [facility] Start: 06-08-2023 Pacemaker Remote F/U Kitty Millard MD Work Phone: [facility] Start: 06-04-2023 ambulatory Facility:[id number] Start: 06-04-2023 End: 06-04-2023 ambulatory DO Broderick Howard Work Phone: [facility] Work Phone: Start: 06-04-2023 End: 06-04-2023 Patient encounter procedure DO Broderick Howard Work Phone: [facility] [place] Work Phone: Start: 05-14-2023 ambulatory Facility:[id number] Start: 05-14-2023 End: 05-14-2023 ambulatory DO Broderick Howard Work Phone: [facility] Work Phone: Start: 05-14-2023 End: 05-14-2023 Patient encounter procedure DO Broderick Howard Work Phone: [facility]-Pacemaker Check Start: 05-06-2023 End: 05-06-2023 ambulatory Bertram Sanders Other [employer] Other Start: 05-06-2023 Patient encounter procedure Bertram Sanders [facility] Gastroenterology Start: 05-03-2023 End: 05-03-2023 ambulatory Broderick Lee Other [employer] Other Start: 05-03-2023 Office outpatient vi sit 15 minutes Broderick Howard [facility] Start: 05-03-2023 Telephone encounter Broderick SCHWARZ G [facility] Start: 03-29-2023 End: 04-14-[address] BRODERICK HOWARD [facility] [employer] Other Start: 03-29-2023 Telephone encounter Broderick SCHWARZ G [facility] Start: 03-25-2023 End: 03-25-2023 ambulatory Broderick Howard Other [employer] Other Start: 03-25-2023 Office outpatient vi sit 25 [address] [facility] Start: 03-15-2023 End: 04-14-2023 ambulatory AGUILAR H FAWWAD Facility:H1 Start: 02-24-2023 Follow-up encounter Kitty Millard MD Work Phone: [facility] Start: 02-24-2023 Pacemaker Remote F/U Kitty Millard MD Work Phone: [facility] Department Start: 02-15-2023 End: 03-12-2023 ambulatory AGUILAR H FAWWAD Facility:H1 Start: 02-03-2023 End: 02-03-2023 ambulatory Bertram Sanders Other [employer] Other Start: 02-03-2023 Telephone encounter Bertram SCHWARZ G [facility] Start: 01-13-2023 End: 02-12-2023 ambulatory AGUILAR H FAWWAD Facility:H1 Start: 01-07-2023 End: 01-07-2023 ambulatory Bertram Shannony Other [employer] Other Start: 01-07-2023 Patient encounter procedure Bertram GERMAIN [facility] Start: 12-16-2022 End: 01-13-2023 ambulatory AGUILAR H FAWWAD Facility:H1 Start: 11-25-2022 End: 11-25-2022 ambulatory Broderick Howard Other [employer] Other Start: 11-25-2022 Follow-up encounter Kitty Millard MD Work Phone: [facility] Start: 11-25-2022 Office outpatient vi sit [address] [facility] Start: 11-25-2022 Pacemaker Remote F/U Kitty Millard MD Work Phone: [facility] Department Start: 11-23-2022 Patient encounter procedure Broderick Howard Other [employer] Other Start: 11-16-2022 End: 12-16-2022 ambulatory AGUILAR H FAWWAD Facility:H1 Start: 10-15-2022 Adult health examination Niki Blades Other [employer] Other Start: 10-15-2022 Gynecological examination normal Niki Blades Other [employer] Other Start: 10-15-2022 End: 11-15-2022 ambulatory AGUILAR H FAWWAD Facility:H1 Start: 09-15-2022 End: 10-14-2022 ambulatory AGUILAR H FAWWAD Facility:H1 Start: 09-10-2022 End: 09-10-2022 Patient encounter procedure Alejandro Villar MD, PhD Work Phone: Neurology Comment on above: 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, intractable (HCC) Start: 08-26-2022 Follow-up encounter Kitty Millard MD Work Phone: [facility] Start: 08-26-2022 Pacemaker Remote F/U iKtty Millard MD Work Phone: [facility] Department Start: 08-16-2022 End: 09-14-2022 ambulatory AGUILAR [...] 01-06-2022 End: 01-06-2022 ambulatory Bertram Sanders Other [employer] Other Start: 01-06-2022 Patient encounter procedure Bertram Sanders [facility] Gastroenterology Start: 10-14-2020 End: 10-14-2020 Pre-procedure evaluation check Niki Blades Other [employer] Other Procedures Date Procedure Procedure Detail Performing [...] Start: 06-29-2027 Diabetes Screening Diabetes Screenin g [facility] Start: 04-10-2026 BP Controlled (<130/80) BP Controlle d (<130/80) [facility] Start: 01-09-2026 End: 01-09-2026 Patient encounter procedure 01/09/2026 11:00 AM EST Office Visit Neurology [address] [place] [address] Alejandro Villar MD, PhD [address] [place] [address] annaul follow up Neurology Comment on above: annaul follow up Start: 01-05-2026 BP Controlled (<130/80) BP Controlle d (<130/80) [facility] Start: 01-04-2026 BP Controlled (<130/80) BP Controlle d (<130/80) [facility] Start: 10-30-2025 End: 10-30-2025 Patient encounter procedure 10/30/2025 10:30 AM EST Office Visit Neurology [address] [place] [address] [place] [address] [place] [address] Botox Neurology Comment on above: Botox Start: 07-18-2025 End: 07-18-2025 Patient encounter procedure 07/18/2025 10:00 AM EDT Office Visit Neurology [address] [place] [address] [place] [address] [place] [address] Botox Neurology Comment on above: Botox Start: 07-16-2025 Influenza vaccination Influenza Vacc ine (#1) [facility] Start: 07-02-2025 Patient referral [facility] Work Phone: Start: 05-21-2025 End: 05-21-2025 Patient encounter procedure 05/21/2025 8:00 AM EDT Office Visit Neurology [address] [id number] Elian Jones DO [address] [place] [address] [id number] MCI (mild cognitive impairment) [G31.84] Neurology Comment on above: MCI (mild cognitive impairment) [G31.84] Start: 04-10-2025 End: 04-10-2025 Patient encounter procedure 04/10/2025 11:30 AM EDT Office Visit [facility] [address] [facility] [place] [address] [place] [address] [place] [address] [id number] Botox Neurology Comment on above: Botox Start: 2025 RSV Vaccine (1 - 1-d ose 75+ series) RSV Vaccine (1 - 1-dose 75+ series) [facility] Start: 01-05-2025 End: 01-05-2025 Patient encounter procedure 01/05/2025 12:00 PM EST Office Visit Neurology [address] [place] [address] Svitlana Mayfield APRN.STRATEGY MANAGER [address] [place] [address] Botox Neurology Comment on above: Botox Start: 01-04-2025 End: 01-04-2025 Patient encounter procedure 01/04/2025 2:00 PM EST Office Visit Neurology [address] [place] [address] Alejandro Villar MD, PhD [address] [place] [address] Follow up Neurology Comment on above: Follow up Start: 12-12-2024 End: 12-12-2024 Patient encounter procedure 12/12/2024 11:00 AM EST Office Visit Neurology [address] [place] [address] [place] [address] [place] [address] Botox Neurology Comment on above: Botox Start: 11-28-2024 DIABETES SCREEN DIABETES SCREEN [facility] Start: 11-28-2024 Diabetes Screening Diabetes Screenin g [facility] Start: 11-24-2024 [facility] Start: 11-24-2024 Bacteria identified in Blood by Culture Blood Culture [facility] Start: 11-15-2024 Advance Directive Discussion Advance Directive Discussion [facility] Start: 11-15-2024 Medicare Advantage A nnual Wellness Visit Medicare Advantage Annual Wellness Visit [facility] Start: 10-02-2024 End: 10-02-2024 Patient encounter procedure 10/02/2024 2:40 PM EST Office Visit Cardiology [address] [place] [id number] echo Cardiology Comment on above: echo Start: 09-05-2024 End: 09-05-2024 Patient encounter procedure 09/05/2024 1:30 PM EDT Office Visit Neurology [address] [place] [address] [place] [address] [address] [place], [place] [id number] Botox Neurology Comment on above: Botox Start: 08-31-2024 End: 08-31-2024 Patient encounter procedure 08/31/2024 10:00 AM EDT Office Visit Cardiology [address] [place] [address] [place] [address] [place], [place] [id number] return in about 1 year (around 09/08/2024) Cardiology Comment on above: return in about 1 ye ar (around 09/08/2024) Start: 07-16-2024 Covid-19 Vaccine ( season) Covid-19 Vaccine () [facility] Start: 07-16-2024 Influenza vaccination Influenza Vacc ine (#1) [facility] Start: 06-29-2024 End: 06-29-2024 Patient encounter procedure 06/29/2024 1:00 PM EDT Office Visit Neurology [address] [place] [address] Alejandro Villar MD, PhD [address], [place] [id number] Follow Up-rescheduled from 06/22 Neurology Comment on above: Follow Up-reschedule d from 06/22 Start: 04-21-2024 Patient referral [facility] Work Phone: Start: 11-15-2023 Advance Directive Discussion Advance Directive Discussion [facility] Start: 08-05-2023 [facility] Start: 08-03-2023 Hospital admission [facility] Start: 08-03-2023 [facility] Start: 07-16-2023 Covid-19 Vaccine ( season) Covid-19 Vaccine () [facility] Start: 07-16-2023 Influenza vaccination [facility] Start: 11-15-2022 ADVANCE DIRECTIVE DISCUSSION ADVANCE DIRECTIVE DISCUSSION [facility] Start: 09-10-2022 End: 11-10-2022 levETIRAcetam [Mass/volume] in Serum or Plasma [facility] Work Phone: Comment on above: Expected: 09/10/2022 , Expires: 11/10/2022 Start: 09-10-2022 End: 11-10-2022 Zonisamide [Mass/volume] in Serum or Plasma [facility] Work Phone: Comment on above: Expected: 09/10/2022 , Expires: 11/10/2022 Start: 07-16-2022 Influenza vaccination INFLUENZA (#1) [facility] Start: 04-30-2022 Screening for malign ant neoplasm of colon [facility] Start: 11-15-2021 ADVANCE DIRECTIVE DISCUSSION ADVANCE DIRECTIVE DISCUSSION [facility] Start: 02-04-2019 Pneumococcal Vaccine : 50+ (2 of 2 - PCV) Pneumococcal Vaccine: 50+ (2 of 2 - PCV) [facility] Start: 02-04-2019 Pneumococcal Vaccine : 65+ (2 - PCV) Pneumococcal Vaccine: 65+ (2 - PCV) [facility] Start: 02-04-2019 Pneumococcal Vaccine : 65+ (2 of 2 - PCV) Pneumococcal Vaccine: 65+ (2 of 2 - PCV) [facility] Start: 2015 BONE DENSITY BONE DENSITY [facility] Start: 2015 Bone Density Screening Bone Density Screening [facility] Start: 2015 Pneumococcal Vaccine : 65+ Years (1 of 1 - PCV) Pneumococcal Vaccine: 65+ Years (1 of 1 - PCV) [facility] Start: 2015 PNEUMOCOCCAL: 65+ (1 - PCV) PNEUMOCOCCAL: 65+ (1 - PCV) [facility] Start: 2015 Screening for osteoporosis Bone Dens ity Screening [facility] Start: 2010 RSV Vaccine (1 - 1-d ose 60+ series) RSV Vaccine (1 - 1-dose 60+ series) [facility] Start: 2010 RSV Vaccine (1 - Ris k 60-74 years 1-dose series) RSV Vaccine (1 - Risk 60-74 years 1-dose series) [facility] Start: 2000 SHINGRIX VACCINE (1 of 2) MONCADA GRIX VACCINE (1 of 2) [facility] Start: 1995 COLOGUARD (FIT-DNA) COLOGUARD (FIT-D NA) [facility] Start: 1995 Colonoscopy COLONOSCOPY [facility] Start: 1995 COLORECTAL CANCER SCREENING COLORECTAL CANCER SCREENING [facility] Start: [address] [facility] Start: 1995 FECAL OCCULT BLOOD FECAL OCCULT BLOO D [facility] Start: 1995 Lipid 1996 panel - S akila or Plasma Lipid Screening [facility] Start: 1995 Lipid panel Lipid Screening [facility] Start: 1995 LIPID SCREEN LIPID SCREEN [facility] Start: 1995 Screening for malign ant neoplasm of colon [facility] Start: 1995 SIGMOIDOSCOPY SIGMOIDOSCOPY [facility] Start: 1990 Mammography [facility] Start: 1990 Screening for malign ant neoplasm of breast [facility] Start: 1969 Urine microalbumin profile [facility] Start: 1968 ANNUAL PCP TEAM [employer]PER[employer] RAVINDRA DISEASE VISIT ANNUAL PCP TEAM CHRONIC DISEASE VISIT [facility] Start: 1968 BP CONTROLLED (<130/80) BP CONTROLLE D (<130/80) [facility] Start: 1968 HEPATITIS C SCREENING HEPATITIS C [facility] Start: 1968 Hepatitis C screening Hepatitis C [facility] Start: 1950 COVID-19 VACCINE (#1) COVID-19 VACCI NE (#1) [facility] Start: 1950 Screening for malign ant neoplasm of colon [facility] BACH SCREENING TEST BACH SCREENI NG TEST Procedures Routine Memory loss Ordered: 01/04/2025 [facility] Work Phone: Comment on above: Ordered: 01/04/2025 End: 07-23-2023 ECG COMPLETE ECG COMPLETE ECG Routine Chronic fatigue 1 Occurrences starting 07/23/2022 until 07/23/2023 [facility] Work Phone: Comment on above: 1 Occurrences starti ng 07/23/2022 until 07/23/2023 ECG COMPLETE ECG COMPLETE ECG Routine Sinus node dysfunction (HCC) Cardiac pacemaker in situ Bradycardia Ordered: 09/08/2023 [facility] Work Phone: Comment on above: Ordered: 09/08/2023 ECG COMPLETE ECG COMPLETE ECG Routine Sinus node dysfunction (HCC) Ordered: 08/31/2024 [facility] Work Phone: Comment on above: Ordered: 08/31/2024 End: 08-31-2025 Echocardiography ECHO Cardiology Routine Sinus node dysfunction (HCC) 1 Occurrences starting 08/31/2024 until 08/31/2025 [facility] Comment on above: 1 Occurrences starti ng 08/31/2024 until 08/31/2025 MG Breast - bilatera l Screening [facility] MG Breast - bilatera l Screening [facility] Patient Education [facility] Work Phone: Patient referral [facility] Work Phone: Renal function 1999 panel - Serum or Plasma [facility] Renal function 1999 panel - Serum or Plasma [facility] Renal function 1999 panel - Serum or Plasma [facility] US Lower extremity v ein - bilateral [facility] US Lower extremity v ein - right [facility] Immunizations Immunization Date Immunization Notes Care Provider [facility] 08-29-2024 influenza, high dose seasonal, preservative-free DO Broderick Howard Work Phone: [facility] 08-29-2024 influenza virus vaccine, unspecified formulation Elian Jones DO Work Phone: [facility] 08-31-2023 influenza virus vaccine, unspecified formulation Randa Reilly MD Work Phone: [facility] 07-30-2022 influenza virus vaccine, split virus (incl. purified surface antigen) Niki Weeks Other [employer] Other 07-30-2022 influenza virus vaccine, unspecified formulation [facility] 09-10-2021 COVID-19 mRNA-1273 (Moderna) DO [employer] Work Phone: [facility] 07-30-2021 influenza virus vaccine, split virus (incl. purified surface antigen) Niki Blades Other [employer] Other 07-30-2021 influenza virus vaccine, unspecified formulation [facility] 01-14-2021 COVID-19 mRNA-1273 (Moderna) DO [employer] Work Phone: [facility] 12-17-2020 COVID-19 mRNA-1273 (Moderna) DO [employer] Work Phone: [facility] 09-03-2020 influenza virus vaccine, split virus (incl. purified surface antigen) Niki Blades Other [employer] Other 09-03-2020 influenza virus vaccine, unspecified formulation [facility] 08-23-2019 influenza virus vaccine, split virus (incl. purified surface antigen) Niki Blades Other [employer] Other 08-23-2019 influenza virus vaccine, unspecified formulation [facility] 09-07-2018 influenza virus vaccine, split virus (incl. purified surface antigen) Niki Blades Other [employer] Other 09-07-2018 influenza virus vaccine, unspecified formulation [facility] 02-04-2018 pneumococcal polysaccharide vaccine, 23 valent Niki Blades Other [facility] Payers Date Payer Category Payer Self-pay [id number] 2024 Medicare (Managed Care) 1.2. [id number] 2024 Unknown [employer] [place] [id number] 2024-Present [phone] [address] [place] [address] HMO [id number] 2024 Unknown [id number] 2021 Unknown [id number] 2.16.840.1.288444.19 2015 Private Health Insurance [employer]ORY JUAREZ MEDICARE SUPPLEMENT [id number] 2015-Present [phone] [address] [place] [address] Indemnity [id number] 2013 Medicare [id number] [id number] .[id number] 2008 Unknown [place] BC/BS [id number] 1959 Medicare [id number] 2.16.840.1.042626.19 1959 Medicare [id number] 2.16.840.1.619262.19 1950 Unknown [id number] 2.840.1.950723.3.579.2 .593 1950 Unknown [id number] .840.1.661789.3.579.2 .593 1950 Unknown [id number] 2.840.1.622940.3.579.2 .59 1950 Unknown [id number] 2.16.840.1.522112.3.579.2 .593 1950 Unknown [id number] 2.16.840.1.197259.3.579.2 .593 1950 Unknown [id number] 2.16.840.1.104937.3.579.2 .593 1950 Unknown [id number] 2.16.840.1.997150.3.579.2 .593 1950 Unknown [id number] 2.16.840.1.932146.3.579.2 .593 1950 Unknown [id number] 2.16.840.1.781618.3.579.2 .593 1950 Unknown [id number] 2.16.840.1.628160.3.579.2 .593 1950 Unknown [id number] 2.840.1.661783.3.579.2 .593 1950 Unknown [id number] 2.840.1.944771.3.579.2 .593 1950 Unknown [id number] 2.840.1.363386.3.579.2 .593 1950 Unknown [id number] 2.840.1.116196.3.579.2 .593 1950 Unknown [id number] 2.840.1.022495.3.579.2 .593 1950 Unknown [id number] 2.840.1.195335.3.579.2 .593 1950 Unknown [id number] 2.840.1.683749.3.579.2 .593 1950 Unknown [id number] 2.16.840.1.871116.3.579.2 .356 1950 Unknown [id number] 2.16.840.1.905163.3.579.2 .356 1950 Unknown [id number] 2.16.840.1.798844.3.579.2 .196 1950 Unknown [id number] 2.16840.1.532463.3.579.2 .196 1950 Unknown [id number] 2.16.840.1.720592.3.579.2 .727 1950 Unknown [id number] 2.16.840.1.673582.3.579.2 .72 1950 Unknown [id number] 2.16.840.1.848718.3.579.2 .72 1950 Unknown [id number] 2.16.840.1.853596.3.579.2 .1950 Unknown [id number] 2.16.840.1.442010.3.579.2 .1950 Unknown [id number] 2.16840.1.292355.3.579.2 .1258 1950 Unknown [id number] 2.16840.1.748418.3.579.2 .1258 1950 Unknown [id number] 2.840.1.472614.3.579.2 .1258 1950 Unknown [id number] 2.16840.1.325828.3.579.2 .1258 1950 Unknown [id number] 2.840.1.121551.3.579.2 .1258 1950 Unknown [id number] 2.16840.1.624361.3.579.2 .1258 1950 Unknown [id number] 2.840.1.900545.3.579.2 .727 Medicare Medicare [id number] Unknown [id number] 2.16840.1.926782.3.579.2 .531 Unknown [id number] 2.840.1.268616.3.579.2 .531 Unknown [id number] 2.16840.1.985852.3.579.2 .531 Social History Date Type Detail Facility Start: 09-10-2022 End: 09-08-2023 Sex Assigned At [facility] Start: 02-19-2011 End: 11-24-2024 Tobacco smoking status NHIS Never smoked tobacco [facility] Start: 02-19-2011 End: 09-10-2022 Tobacco use and exposure Smokeless tobacco non-user [facility] Start: 11-28-2021 End: 07-18-2025 Alcohol intake Current non-drinker of alcohol (finding) [facility] Start: 1950 Sex Assigned At Not on file [facility] Start: 07-13-2022 End: 09-10-2022 Exposure to SARS-CoV-2 (event) Not sure [facility] Start: 1950 Sex Assigned At Female F [facility] Start: 09-10-2022 End: 09-08-2023 History of Social function [facility] Start: 10-16-2012 Adult Depression Screening Assessment 2 [facility] Tobacco smoking status No Smokin g Status Entered [facility] Start: 11-17-2024 End: 02-22-2025 Sex Female (finding) [facility] Start: 11-29-2024 Alcoholic beverage intake Current drinker of alcohol (finding) [facility] Medical Equipment Procedure Code Equipment Code Equipment Origin al Text Equipment Identifier Dates Plate Bn 12mm Cm f Ti 2 H Lp - [id number] Start: 08-16-2015 Pin Crss Sd Scr 1.5x4mm - [id number] Start: 08-16-2015 [id number] [employer] [id number] Start: 05-22-2015 [id number] [employer] [id number] Start: 05-22-2015 [id number] [employer] [id number] Start: 05-22-2015 Goals Date Patient Goal Desired Activity /State Personal health goal Functional Status Date Assessment Result Facility 11-02-2024 Functional Status No [facility] 08-05-2023 Functional status Patient at Baseline [facility] Work Phone: 08-19-2015 Are you deaf, or do you have serious difficulty hearing No 08/19/2015 11:02 AM EDT Vita Gibbs (Rn) (Hist), RN No [facility] 08-19-2015 Are you blind, or do you have serious difficulty seeing, even when wearing glasses No 08/19/2015 11:02 AM Vita ElizondoRn) (Hist), RN No [facility] 08-19-2015 Do you have serious difficulty walking or climbing stairs No 08/19/2015 11:02 AM XANDERT Vita GibbsRn) (Hist), RN No [facility] 08-19-2015 Do you have difficul ty dressing or bathing Yes 08/19/2015 11:02 AM Vita Elizondo (Rn) (Hist), RN Yes [facility] 08-19-2015 Because of a physica l, mental, or emotional condition, do you have difficulty doing errands alone such as visiting a physician's office or shopping Yes 08/19/2015 11:02 AM XANDERT Vita Gibbs) (Hist), RN Yes [facility] Mental Status Date Assessment Result Facility 08-05-2023 Cognitive function Cognitive Sta tus Patient at Baseline [facility] Work Phone: 08-19-2015 Because of a physica l, mental, or emotional condition, do you have serious difficulty concentrating, remembering, or making decisions No 08/19/2015 11:02 AM Vita Elizondo) (Hist), RN No [facility] Clinical Notes 01-24-2015 to 07-18-2025 Randa Reilly MD - 07/18/2025 10:24 AM Lon Mcleod RN - 07/18/2025 9:59 AM Randa Allen MD - 07/18/2025 10:23 AM Randa Allen MD - 07/18/2025 10:23 AM EDT Note Date & Type Note Facility 07-18-2025 Note HNO ID: [id number] Author: RANDA REILLY MD Service: ? Author Type: Physician Type: Progress Notes Filed: 07/18/2025 12:52 Note Text: PROGRESS NOTE- HEADACHE MEDICINE SERVICE DATE: July 18, 2025 Location: [facility] neurological institute Participants: patient, and provider [...] with me or WENDY Randa Reilly MD [facility] 07-18-2025 History of Presen t illness Narrative PROGRESS NOTE- HEADACHE MEDICINE SERVICE DATE: July 18, 2025 Location: [facility] Participants: patient, and provider HPI: Here [...] with me or WENDY Randa Reilly MD [facility] Patient name and confirmed. Patient states she would like to receive Botox treatment today. 2 vials of Botox A (100 units in each) reconstituted with 2.2 cc of normal saline in each vial. Botox drawn up into four, 1 cc syringes. Each syringe containing 50 units of Botox. Assisted by: Robyn Blanc RN Botox, 2 vials: Lot # [id number] Exp 09/2027 Lot # [id number] 09/[address] Reilly to administer and verified order. documented in this encounter [facility] 07-18-2025 Note HNO ID: [id number] Author: RANDA REILLY MD Service: ? Author [...] Injection Sites Muscle Fixed Site/Fixed Dose Bilat Work Force Advisor 20 U divided in 2 sites Procerus [...] Total Units wasted: 0 Randa Reilly MD [facility] 07-18-2025 Procedure note BOTOX PROCEDURE NOTE UNIVERSAL [...] Injection Sites Muscle Fixed Site/Fixed Dose Bilat Work Force Advisor 20 U divided in 2 sites Procerus [...] Units wasted: 0 Randa Reilly MD [facility] 07-18-2025 Procedure note BOTOX PROCEDURE NOTE UNIVERSAL [...] Injection Sites Muscle Fixed Site/Fixed Dose Bilat Work Force Advisor 20 U divided in 2 sites Procerus [...] 0 Randa Reilly MD [facility] [place] documented in this encounter [facility] 07-18-2025 Note HNO ID: [id number] Author: LON ALEXANDER RN Service: ? Author [...] Blanc RN Botox, 2 vials: Lot # [id number] Exp 09/2027 Lot # [id number] Exp 09/[address] Reilly to administer and verified order. [facility] 07-02-2025 Evaluation note Diagnosis Onset Date [...] for breast cancer noneactive July 02 2:50pm [facility] Work Phone: 1(290) 169-512207-07-2025 Instructions* Patient Instructions* Jyoti Crowley MD - [...] much intensity you could go. Source : www.[employer] Dietary Modifications: Increase the amount of vegetables [...] high glycemic index: instant rice, mashed potatoes, [place] fries bagels, baguettes, vanilla wafers processed cereals (Cheerios, [place]-Puffs, corn/bran flakes, Total, etc.) Avoid foods high in total fat, especially saturated fats and cholesterol Eat foods rich in Railroad-3 fatty acids (fish, olive oil, nuts) For More Information on the Mediterranean and the MIND Diet Visit: https://www.deena.nih.gov/health/al vuqxbobp-dew-ofepllbi/cbgr-aw-ve-qgbp-zseeo-sgsu-fvq-abicycthce-xbzggsqnuv-disea se Source : Nekted.Gradalis Memory Workouts: In some studies, participation in [...] a Musical Instrument Dancing (ballroom) Computer Games/Apps: [place] MR Photoelectricity or Bomberbot phone application Tasks to improve attention/working memory: [...] et al. The Lancet, Volume 396, Issue 19654, 399 [phone] Patient Education Section : Fall Prevention As [...] include walking, swimming, and Panda Chi (a Anguillan martial art that involves slow, gentle movements). [...] your health and independence. documented in this encounterRegional Medical Center07-07-2025 NoteHNO ID: [id number] Author: KALIN GUAMAN OCCA Service: ? Author Type: Acoustics Teacher Type: Progress Notes Filed: 05/21/2025 08:04 Note Text: Cassi Rodrigez is a 75 year old year old left handed woman Accompanied by: spouse. 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 Vital Signs: There were no vitals taken for this visit.[facility]07-07-2025 History of Present illness Narrative* Kalin Guaman OCCA - 05/21/2025 8:03 AM EDT Cassi Rodrigez is a 75 year old year old left handed woman Accompanied by: spouse. 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 Vital Signs: There were no vitals taken for this visit. * Elian Jones DO - 05/21/2025 8:00 AM EDT Images from the original note were not included. [facility] New Patient Evaluation Cassi Rodrigez : 1950 05/21/2025 8:00 AM Chief Complaint: memory concern I had the pleasure of seeing this 75 year old year old female at the [facility]. The patient is referred [...] She was advised to follow up at [facility] for further evaluation of her memory [...] Version 7.1 Total Score: 27/30 Visuospatial/Executive Alternating [place]quette Making: Patient successfully draws the pattern without [...] recalled (+1) Word 3: Required multiple choice- 'yarsanism, school, hospital' (0) Word 4: Required category [...] which included preparing to see the patient, mlxh-ld-tkje patient care, performing a medically appropriate examination, [...] 05/23/2025 Time: 2:35 PM documented in this encounterRegional Medical Center07-07-2025 NoteHNO ID: [id number] Author: ELIAN JONES DO Service: ? Author Type: Physician Type: Progress Notes Filed: 05/23/2025 14:36 Note Text: Regina Herrera [facility] New Patient Evaluation Cassi Rodrigez : 1950 05/21/2025 8:00 AM Chief Complaint: memory concern I had the pleasure of seeing this 75 year old year old female at the [facility]. The patient is referred by Dr. [...] She was advised to follow up at [facility] for further evaluation of her memory [...] medication for their flor (more content not included)...[facility]05-27-2025 NoteHNO ID: [id number] Author: RANDA REILLY MD Service: ? Author [...] Injection Sites Muscle Fixed Site/Fixed Dose Bilat Work Force Advisor 20 U divided in 2 sites Procerus [...] Total Units wasted: 0 Randa Reilly MD [facility]05-27-2025 Procedure note* Randa Reilly MD - [...] procedure note Treatment # 4 Consent in [facility] Dilution: 5 units/0.1 ml ( 100 unit vial with 2 cc diluent or 200 unit vial with 4 cc diluent) Diluent: normal saline Indication: Chronic Intractable Migraine Right temporal metal plate with skin irregularity, no shunt Injection Sites Muscle Fixed Site/Fixed Dose Bilat Work Force Advisor 20 U divided in 2 sites Procerus [...] Units wasted: 0 Randa Reilly MD [facility] Procedure note* Randa Reilly MD - 04/10/2025 [...] Injection Sites Muscle Fixed Site/Fixed Dose Bilat Work Force Advisor 20 U divided in 2 sites Procerus [...] 0 Randa Reilly MD [facility] [place] documented in this encounterRegional Medical Center05-27-2025 NoteHNO ID: [id number] Author: LON ALEXANDER RN Service: ? Author [...] Farfan RN Botox, 2 vials: Lot # [id number] Exp 08/2027 Lot # [id number] Exp 08/[address] Reilly to administer and verified order.[facility] 04-10-2025 History of Present illness Narrative* [...] Farfan RN Botox, 2 vials: Lot # [id number] Exp 08/2027 Lot # [id number] Exp 08/[address] Reilly to administer and verified order. * Randa Reilly MD - 04/10/2025 11:20 AM EDT PROGRESS NOTE- HEADACHE MEDICINE SERVICE DATE: April 10, 2025 Location: [facility] Participants: patient, and provider HPI: Here [...] with me or WENDY Randa Reilly MD [facility] documented in this encounterRegional Medical Center05-27-2025 NoteHNO ID: [id number] Author: RANDA REILLY MD Service: ? Author Type: Physician Type: Progress Notes Filed: 04/10/2025 12:19 Note Text: PROGRESS NOTE- HEADACHE MEDICINE SERVICE DATE: April 10, 2025 Location: [facility] Participants: patient, and provider HPI: Here [...] WENDY Randa Reilly MD [facility]02-21-2025 NoteHNO ID: [id number] Author: DAVINA BRENNAN RN Service: ? Author [...] Hamm RN Botox, 2 vials: Lot # [id number] Exp 02/2027 Lot # [id number] Exp 02/2027 Botox handed to Svitlana Mayfield CNP to administer and verified order.[facility] [id number] History of Present illness Narrative* Davina Brennan [...] Hamm RN Botox, 2 vials: Lot # [id number] Exp 02/2027 Lot # [id number] Exp 02/2027 Botox handed to Svitlana Mayfield [...] for migraine Informed Consent Consent Obtained: Written [place] Protocol A moment to CARE was completed [...] applicable Written Consent Obtained: Written LOT #: [id number] Expiration Date: Month: Year: 2026 Second vial: LOT #: [id number] Expiration Date: Month: Year: 2026 Injection Sites Left (Units) Left (Sites) Right (Units) Right (Sites) TOTAL (Units) Work Force Advisor 5 1 5 1 10 Procerus Units: [...] which included preparing to see the patient, pvwi-dr-trqk patient care, completing clinical documentation, obtaining and/or reviewing separately obtained history, counseling and educating the patient/family/caregiver, and ordering medications, tests, or procedures. Svitlana Mayfield APRN.NIC documented in this encounterRegional Medical Center02-21-2025 Instructions* Patient Instructions* Svitlana Mayfield APRN.CNP - [...] your next Botox Injection documented in this encounterRegional Medical Center02-21-2025 NoteHNO ID: [id number] Author: SVITLANA MAYFIELD APRN.CNP Service: ? Author [...] for migraine Informed Consent Consent Obtained: Written [place] Protocol A moment to CARE was completed [...] applicable Written Consent Obtained: Written LOT #: [id number] Expiration Date: Month: 4 Year: 2026 Second vial: LOT #: [id number] Expiration Date: Month: 4 Year: 2026 Injection Sites Left (Units) Left (Sites) Right (Units) Right (Sites) TOTAL (Units) Work Force Advisor 5 1 5 1 10 Procerus Units: [...] no evidence of procedural (more content not included)...[facility] [id number] History of Present illness Narrative* Alejandro Villar MD, PhD - 01/04/2025 2:00 PM EST [facility] Patient Name: Cassi Rodrigez Date of : 1950 ESTABLISHED EPILEPSY CLINIC NOTE 01/04/2025 2:00 PM Reason for Visit: Follow Up Clinical Summary: Ms. Rodrigez is a 74 year old right-handed female seen in [facility]. There is no one accompanying [...] - Seizure risk factors: Brain Tumor No ROAD OILER Infections No Developmental Delay No Family history [...] - 1.02 mg/dL 1.60 High TBH EGFR-AF AUSTRALIAN >=60 38 Low TBH EGFR-NON AF AUSTRALIAN >=60 32 Low BUN CREATININE RATIO 15.0 [...] Ocular Disease Other SOCIAL HISTORY: -Lives in [place], [place] -Patient lives alone? -Vocation: -Education: -Cigarette, [...] which included: preparing to see the patient tehf-ks-viso patient care completing clinical documentation obtaining and/or reviewing separately obtained history counseling and educating the patient/family/caregiver ordering medications, tests, or procedures independently interpreting results (not separately reported) communicating results to the patient/family/caregiver Alejandro Villar MD, PhD cc: Primary Care Physician: Broderick Howard DO [address] [place] [address] Referring: Patient: Ms. Cassi Rodrigez [address] [address] documented in this encounterRegional Medical Center02-20-2025 NoteHNO ID: [id number] Author: ALEJANDRO VILLAR MD, PhD Service: ? Author Type: Physician Type: Progress Notes Filed: 01/04/2025 14:17 Note Text: [facility] Patient Name: Cassi Rodrigez Date of : 1950 ESTABLISHED EPILEPSY CLINIC NOTE 01/04/2025 2:00 PM Reason for Visit: Follow Up Clinical Summary: Ms. Rodrigez is a 74 year old right-handed female seen in [facility]. There is no one accompanying [...] - Seizure risk factors: Brain Tumor No ROAD OILER Infections No Developmental Delay No Family history [...] mg/dL 103 BLOOD UREA (more content not included)...[facility] [id number] History of Present illness Narrative* Aftab Dey, [...] DSD until it heals documented in this encounterRanken Jordan Pediatric Specialty HospitalEltaqccgnf92-75-7922 Telephone encounter Note* Telephone Encounter - Alexi Colindres PA-C - 12/11/2024 1:30 PM EST The following approved medication requests have been transmitted electronically. Requested Prescriptions Signed Prescriptions Disp Refills zonisamide (ZONEGRAN) 100 mg capsule 270 capsule 1 Sig: Take 3 capsules by mouth daily at bedtime. Authorizing Provider: ALEXI COLINDRES PA-C [facility]01-27-2025 Miscellaneous Notes* Telephone Encounter - Alexi Colindres [...] by: patient Please E-Scribe Caller Contact Number: [phone] (home) Pharmacy Name: [facility] Pharmacy Number: [id number] Generic/ brand: generic 30 or 90 day supply requested: 90 Last appointment: 06/29/24 Next Appointment: 01/04/[address] guido Rodrigez [id number] [facility] [address] documented in this encounterRegional Medical Center01-27-2025 Telephone encounter Note * Telephone Encounter - Maranda Moreno - 12/11/2024 10:27 AM EST Prescription Refill: Requested by: patient Please E-Scribe Caller Contact Number: [phone] (home) Pharmacy Name: [facility] Pharmacy Number: [id number] Generic/ brand: generic 30 or 90 day supply requested: 90 Last appointment: 06/29/24 Next Appointment: 01/04/[address] guido Rodrigez [id number] [facility] [address] [facility]01-[facility] History of Present illness Narrative* Aftab Dey, [...] DAY DIRECTED ergocalciferol (Vitamin D2) 1.25 MG (27177 UT) capsule TAKE 1 CAPSULE BY MOUTH [...] I'll see her PRN documented in this [facility]01-10-2025 Radiology Diagnostic [facility]BAR[facility] [place] [address] CT Scan Report Signed Patient: Cassi Rodrigez MR#: [id number] : 1950 Acct:[id number] Age/Sex: 74 / F ADM Date: 5 Loc: ER Room: Type: [facility] ER Attending Dr: Copies to: Kristel Low APRN~ Ordering Provider: Krsitel Low APRN Date of Service: 11/24/24 CT/CT [...] Arnel Simon M.D.11/24/2024 3:48 PM Dictation Location: [facility]--17 Transcribed By: [facility] 11/24/24 154 Dictated By: Arnel Simon II, MD 11/24/24 153 Signed By: 11/24/24 1548 [facility] Work Phone: 1(709) 611-832701-10-2025 Evaluation note* Diagnosis Onset Date Resolution Status [...] vein thrombosis) acute February 21, 2025 1:49pm [facility] Work Phone: 1(886) 690-649501-10-2025 Evaluation note* Diagnosis Onset Date Resolution Status [...] Secondary hyperparathyroidism acute February 22, 2025 10:30am [facility] Work Phone: 1(954) 744-318612-30-2024 NoteProgress Note-Physician Patient: CASSI RODRIGEZ Age: 74 [...] to Ambulatory Surgery Unit, and To home ).[facility] CenterComment on above:Result Comment: Electronically Signed By: Sunny Ramirez Jr., DO.mukesh\Date and Time Signed: 11/13/24 07:01 [id number] NoteDischarge Summary Patient: CASSI RODRIGEZ Age: 74 [...] history of other venous thrombosis and embolism USP (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 of anticoagulants Epilepsy, unspecified, not [...] mmHg (NOV 03:) DBP 68 mmHg (NOV 03)[facility] CenterComment on above:Result Comment: Electronically Signed By: Ap PAUL, Shashi Rae.mukesh\Date and Time Signed: 11/03/24 18:13 [id number] Hospital Discharge instructions Patient Education 11/03/2024 14:55:59 [...] sitting in a recliner chair. Only take lbaq-wlt-qibzzlp or prescription medicines for pain, discomfort, or [...] Document Reviewed: 11/01/2006 ExitCare Patient Information 2013 [employer]. Follow Up Care 10/19/2024 10:52:05 With:BRODERICK HOWARD Address: [facility] [place] [address] Business (1) When: Unknown Comments:No need to see PCP at this time unless symptoms worsen. With:Shashi De Souza Address: [address], [address] [place] [phone] Business (1) When: Unknown Comments:f/u3wks ok shower and remove dressing kglmt00xvg no lift>5lbs keep incis dry clean. restart coumadin 3 days after surgery. 11-05-24Wednesday. [facility] 12-20-2024 NotePatient Education - Text Lumbar Laminectomy [...] in a recliner chair. ? Only take bpkf-iuv-ogwgwcj or prescription medicines for pain, discomfort, or [...] Document Reviewed: 11/01/2006 ExitCare? Patient Information ?2012 [employer]ister Spex.[facility] 11-03-2024 Evaluation + Plan noteExtracted from: Title:Discharge Summary Author:Shashi De Souza MD Date:11/03/24 Discharge Information Discharge Summary Information: Admit Date/Time: 11/02/24 10:13Discharge Date/Time: 11/03/24 18:13 Admitting Physician: Shashi De Souza MD Referring Physician for Admission: Shashi De Souza MD Consulting Physicians: Dar NUNEZ MD Admitting Diagnoses: Discharge Diagnoses: Essential (primary) hypertension Presence of cardiac pacemaker Personal history of other venous thrombosis and embolism 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 Anticoagulated (Z79.01: intermediate project manager (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 of anticoagulants) Warfarin prior to [...] hold for neuro spine surgery, patient has cmdpb-dsy-bvbj compression hose and SCDs Enoxaparin 40 mg daily per surgeon for now 5. Anticoagulated (Z79.01: intermediate project manager (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 of anticoagulants) Warfarin prior to [...] Pre-operative Note 2022 Author:Jaun Mccollum Date:11/02/24 Plan [place] Society of Anesthesiologists (ASA) physical status classification: Class III. Anesthetic Preoperative Plan: Anesthesia General. Diagnostic Tests Pending * Calcium Level Ionized 11/03/24 [facility] 12-20-2024 NoteProgress Note-Physician Basic Information 74-year-old female [...] hold for neuro spine surgery, patient has wxzzq-wqt-vmwv compression hose and SCDs Enoxaparin 40 mg daily per surgeon for now 5. Anticoagulated (Z79.01: intermediate project manager (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 of anticoagulants) Warfarin prior to [...] % (11/03/24 05:56:00) MCV (more content not included)...[facility] CenterComment on above: Result Comment: Electronically Signed By: Katarzyna Frost CNP\.br\Date and Time Signed: 11/03/24 11:08 EST\.br\Electronically Co-Signed By: Dar NUNEZ MD\.br\Date and Time Co-Signed: 11/03/24 12:02 [id number] Note Interdisciplinary Note - PT PT Evaluation done this date. Pt. with on AM-PAC this date. She is safe and independent with all functional activities at this time. No further PT needs.[facility]12-19-2024 NoteConsultation Note Reason for Consultation Medical Management [...] hold for neuro spine surgery, patient has qevjv-xul-osvu compression hose and SCDs Enoxaparin 40 mg daily per surgeon for now 5. Anticoagulated (Z79.01: USP (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 of anticoagulants) Warfarin prior to [...] tab(s), Oral, Daily carvedil (more content not included)...[facility] CenterComment on above:Result Comment: Electronically Signed By: Katarzyna Frost CNP\.br\Date and Time Signed: 11/02/24 18:33 EST\.br\Electronically Co-Signed By: Dar NUNEZ MD\.br\Date and Time Co-Signed: 11/02/24 18:54 [id number] NoteProgress Note-Nurse 1615- Pacemaker to right chest interrogated in PACU at this time with Medtronic device. Device stated it transmitted properly.[facility] 11-02-2024 NoteProgress Note-Physician Patient: CASSI RODRIGEZ Age: [...] All Problems Acute asthma / SNOMED CT 9850548719 / Confirmed Bradycardia / SNOMED CT 07125311 / Confirmed Cardiac pacemaker / SNOMED CT 0039125865 / Confirmed Epilepsy / SNOMED CT 986824099 / Confirmed High blood pressure / SNOMED CT 3283380723 / Confirmed History of DVT of lower extremity / SNOMED CT 4726383427 / Confirmed Migraines / SNOMED CT 69520719 / Confirmed Obstructive sleep apnea / SNOMED CT 725191000 / Confirmed Pancreatic cancer / SNOMED CT 848687898 / Confirmed Presence of IVC filter / SNOMED CT 1257646707 / Confirmed, Active Problems (10) Acute asthma Bradycardia Cardiac pacemaker Epilepsy High blood pressure History of DVT of lower extremity Migraines Obstructive sleep apnea Pancreatic cancer Presence of IVC filter , anesthesia summary- obesity, HTN, godfrey/PM, SHELL, mild asthma, remote treatment for pancreatic cancer, controlled siezures, RI, controlld GERD, hx DVT s/p IVCF on chronic anticoagulation, c-spine dz Histori (more content not included)...[facility] CenterComment on above:Result Comment: Electronically Signed By: Thomas PAUL, Jaun Reese\.br\Date and Time Signed: 11/02/24 13:45 [id number] Evaluation note* Diagnosis Onset Date Resolution Status [...] 9:51am Cellulitis acute December 08, 2024 9:51am [facility] Work Phone: 1(992) 271-257210-22-2024 NoteHNO ID: [id number] Author: RANDA REILLY MD Service: ? Author [...] Injection Sites Muscle Fixed Site/Fixed Dose Bilat Work Force Advisor 20 U divided in 2 sites Procerus [...] Total Units wasted: 0 Randa Reilly MD [facility]10-22-2024 Procedure note* Randa Reilly MD - 09/05/2024 1:53 PM EDT BOTOX PROCEDURE NOTE UNIVERSAL PROTOCOL / SAFETY CHECKLIST Procedure to be performed: Radna Reilly MD Sign in Communication: Completed Time [...] Injection Sites Muscle Fixed Site/Fixed Dose Bilat Work Force Advisor 20 U divided in 2 sites Procerus [...] Units wasted: 0 Randa Reilly MD [facility]10-22-20[facility] Procedure note* Randa Reilly MD - 09/05/2024 [...] Injection Sites Muscle Fixed Site/Fixed Dose Bilat Work Force Advisor 20 U divided in 2 sites Procerus [...] Units wasted: 0 Randa Reilly MD [facility] documented in this encounterRegional Medical Center10-22-2024 NoteHNO ID: [id number] Author: RANDA REILLY MD Service: ? Author Type: Physician Type: Progress Notes Filed: 09/05/2024 13:54 Note Text: PROGRESS NOTE- HEADACHE MEDICINE SERVICE DATE: September 05, 2024 Location: [facility] Participants: patient, and provider HPI: Here [...] 3.Referral to sleep medicine Randa Reilly MD [facility]10-22-2024 History of Present illness Narrative* Randa Reilly MD - 09/05/2024 1:49 PM EDT PROGRESS NOTE- HEADACHE MEDICINE SERVICE DATE: September 05, 2024 Location: [facility] Participants: patient, and provider [...] 3.Referral to sleep medicine Randa Reilly MD [facility] [place] documented in this encounterRegional Medical Center10-22-2024 Nurse Note* Davina Brennan RN - 09/05/2024 [...] Jewell RN Botox, 2 vials: Lot # [id number] Exp 10/2026 Lot # [id number] Exp 10/[address] Reilly to administer and verified order. [facility] Nurse Note* Davina Brennan RN - 09/05/2024 [...] by: Lon Adamsox, 2 vials: Lot # [id number] Exp 10/2026 Lot # [id number] Exp 10/[address] Reilly to administer and verified order. documented in this encounterRegional Medical Center10-17-2024 NoteHNO ID: [id number] Author: KITTY VALENTE MD Service: ? Author Type: Physician Type: Progress Notes Filed: 09/02/2024 00:42 Note Text: [facility] [place] [facility] Department of Cardiovascular Medicine SECTION OF CARDIAC PACING and ELECTROPHYSIOLOGY OUTPATIENT VISIT DATE NASRIN July 23, 2022 August 31, 2024 OUTPATIENT VISIT TYPE ESTABLISHED PRIMARY CARE PHYSICIAN: Broderick Howard MD ([facility]) [address] [place] [address] CHIEF COMPLAINT: Pacemaker management HISTORY OF PRESENT [...] antiepileptic Rx - well (more content not included)...[facility] 08-31-2024 History of Present illness Narrative* Kitty Valente MD - 08/31/2024 10:04 AM EDT Images from the original note were not included. [facility] [place] [facility] Department of Cardiovascular Medicine SECTION OF CARDIAC PACING and ELECTROPHYSIOLOGY OUTPATIENT VISIT DATE NASRIN July 23, 2022 August 31, 2024 OUTPATIENT VISIT TYPE ESTABLISHED PRIMARY CARE PHYSICIAN: Broderick Howard MD ([facility]) [address] [place] [address] CHIEF COMPLAINT: Pacemaker management HISTORY OF PRESENT [...] of Cardiovascular Medicine [facility], [facility] [place] [facility] Office Office Pager [phone] August 31, 2024 10:18 AM documented in this encounterRegional Medical Center10-16-2024 Evaluation note* Diagnosis Onset Date Resolution Status [...] 10:54am Cellulitis acute November 28, 2024 10:54am [facility] Work Phone: 1(826) 230-126610-15-2024 Evaluation note* Diagnosis Onset Date Resolution Status [...] medicine non eactive October 27, 2024 8:49am [facility] Work Phone: 1(478) 117-887110-15-2024 Evaluation note* Diagnosis Onset Date Resolution Status [...] 10:35am Cellulitis acute November 24, 2024 10:35am [facility] Work Phone: 1(979) 411-522708-15-2024 History of Present illness Narrative* Alejandro Villar MD, PhD - 06/29/2024 2:41 PM EDT [facility] Patient Name: Cassi Rodrigez Date of : 1950 ESTABLISHED EPILEPSY CLINIC NOTE 06/29/2024 1:00 PM Reason for Visit: Epilepsy Clinical Summary: Ms. Rodrigez is a 74 year old female seen in [facility]. Classification Summary HISTORY OF PRESENT [...] and s/p lumbar laminectomy in 07/2023. At [facility] in Dec 2023, ZNS was increased [...] - Seizure risk factors: Brain Tumor Unanswered ROAD OILER Infections Unanswered Developmental Delay Unanswered Family history [...] - 1.02 mg/dL 1.60 High TBH EGFR-AF AUSTRALIAN >=60 38 Low TBH EGFR-NON AF AUSTRALIAN >=60 32 Low BUN CREATININE RATIO 15.0 [...] Ocular Disease Other SOCIAL HISTORY: -Lives in [place], [place] Review of Systems all other review [...] and s/p lumbar laminectomy in 07/2023. At [facility] in Dec 2023, ZNS was increased [...] which included: preparing to see the patient keiv-aa-vfwd patient care completing clinical documentation obtaining and/or reviewing separately obtained history performing a medically appropriate examination Alejandro Villar MD, PhD cc: Primary Care Physician: Broderick Howard, DO [address] [facility] [id number] Referring: Patient: Ms. Cassi Rodrigez [id number] [place] [id number] documented in this encounterReg[facility]07-[facility]-2024 Nurse Note* Tomasa Farfan RN - 05/23/2024 [...] Lon VARELA Botox, 2 vials: Lot # [id number] Exp Lot # [id number] Exp Botox handed to Dr. Reilly to administer and verified order. [facility] Nurse Note* Tomasa Farfan RN - 05/23/2024 [...] Lon RN Botox, 2 vials: Lot # [id number] Exp Lot # [id number] Exp Botox handed to Dr. Reilly to administer and verified order. documented in this encounterRegional Medical Center07-09-2024 Procedure note* Randa Reilly MD - 05/23/2024 [...] Injection Sites Muscle Fixed Site/Fixed Dose Bilat Work Force Advisor 20 U divided in 2 sites Procerus [...] 0 Randa Reilly MD [facility] [place] [facility]07-09[facility] Procedure note* Randa Reilly MD - 05/23/2024 [...] Injection Sites Muscle Fixed Site/Fixed Dose Bilat Work Force Advisor 20 U divided in 2 sites Procerus [...] 0 Randa Reilly MD [facility] [place] documented in this encounterRegional Medical Center05-01-2024 NoteDUAL CHAMBER PACEMAKER REMOTE EVALUATION: PRESENTING EGM: [...] under CARDIAC DATA AND REPORT, Scanned Documents section.[id number] History of Present illness Narrative* Randa Reilly MD - 03/07/2024 9:30 AM EDT PROGRESS NOTE- HEADACHE MEDICINE SERVICE DATE: March 07, 2024 Location: [facility] neurological [place] Participants: patient, and provider HPI: Here for [...] she would prefer to sit when having DUOGLASS. No changes with Valsalva maneuvers. Aura:no. Severity: [...] I spent at least 50% of the xmou-hi-dgrk time in counseling, explanation of diagnosis, planning of further management, and answering all questions. Randa Reilly MD [facility] [place] documented in this encounterRegional Medical Center02-08-2024 Instructions* Patient Instructions* Lauren Otero APRN.CNP - 12/23/2023 9:42 AM EST To schedule with headache clinic (can schedule at [facility]): [phone] documented in this encounterRegional Medical Center02-08-2024 History of Present illness Narrative* Alejandro Villar MD, PhD - 12/23/2023 9:00 AM EST [facility] CHIEF COMPLAINT: Patient presents with: [...] She was referred to the headacheclinic at [facility] in the past but at this [...] There is no focal weakness. PREVIOUS EVALUATIONS: [facility], 05/2015: Right Temporal Epilepsy Seizures: Aura [...] know if she decides to pursue at [facility] - she needs for spine doctor, [...] APRN.NIC December 23, 2023 documented in this encounterRegional Medical Center01-10-2024 Evaluation note* Encounter Date Diagnosis Assessment Notes Treatment Notes Treatment Clinical Notes Nov, Acute non-recurrent maxillary sinusitis (ICD-10 - J01.00) Instructed to use Robitussin or Mucinex for cough, saline or Flonase NS for congestion, Tylenol for pain and fever. Nov, Primary hypertension (ICD-10 - I10) Increased risk for more serious, prolonged illness. [employer] Other [id number] Miscellaneous Notes* Telephone Encounter - Mirian Bell APRN.CNP - 09/13/2023 1:53 PM EDT Thank you reviewed scan documents. Mirian Bell APRN.NIC * Telephone Encounter - Brenda Hodges RN - 09/13/2023 7:58 AM EDT Received medical records from [facility] and scanned into chart for review. documented in this encounterRegional Medical Center10-30-2023 Miscellaneous Notes* Telephone Encounter - Daniel Macias [...] Please E-Scribe Caller Contact Number: Pharmacy Name: [facility] Pharmacy Number: [phone] Generic/ brand: 30 or 90 day supply requested: 90 Last appointment: 09/10/22 Next Appointment: 12/09/[address] Villar documented in this encounterRegional Medical Center10-25-2023 Instructions* Patient Instructions* Mirian Bell APRN.CNP - 09/08/2023 3:21 PM EDT Please schedule for device check & in one year Please have patient sign release of medical labs from [facility] had labs last month documented in this encounterRegional Medical Center10-25-2023 History of Present illness Narrative* Mirian Bell APRN.CNP - 09/08/2023 2:30 PM EDT Images from the original note were not included. [facility] [place] [facility] Department of Cardiovascular Medicine SECTION OF CARDIAC PACING and ELECTROPHYSIOLOGY OUTPATIENT VISIT DATE September 08, 2023 OUTPATIENT VISIT TYPE ESTABLISHED PRIMARY CARE PHYSICIAN: Broderick Howard (Zack) [address] [place] [address] CHIEF COMPLAINT: follow up device management HISTORY [...] 09-08-2023 Dual chambered pacer EVALUATION PRESENTS FOR: STRATEGY MANAGER visit PRESENTING EGM: AP/VS UNDERLYING RHYTHM: [...] 4. Annual labs, I will obtain from [facility] she had last month Follow up appointment: Dr. Walters & device check in one year I spent 25 to 30 minutes in the visit, with more than 50% of the total ioep-ta-mpgt time of the visit in counseling / coordination of care. CONTACT INFORMATION: Mirian Bell APRN.STRATEGY MANAGER, 09/08/23 [facility] Cardiology Second Floor [address] [place] [address] documented in this encounterRegional Medical Center10-11-2023 Evaluation note* Encounter Date Diagnosis Assessment Notes Treatment Notes Treatment Clinical Notes Aug, Lumbar stenosis with neurogenic claudication (ICD-10 - M48.062) [employer] Other 10-02-2023 Evaluation note* Encounter Date Diagnosis Assessment Notes Treatment Notes Treatment Clinical Notes Aug, Lumbar stenosis with neurogenic claudication (ICD-10 - M48.062) [employer] Other 09-28-2023 Evaluation note* Encounter Date Diagnosis Assessment Notes Treatment Notes Treatment Clinical Notes Jul, Lumbar stenosis with neurogenic claudication (ICD-10 - M48.062) [employer] Other 09-20-2023 Progress note Author Niki Weeks [facility] August 04, 2023 7:57am Note Date/Time August 04, 2023 7:57am [facility] [address] [place] [address] Neurosurgery Progress Note Signed Patient: Cassi Rodrigez MR#: [id number] : 1950 Acct:[id number] Age/Sex: 73 / F Adm Date: 3 Loc: Room: [address] [place] [address] Type: REG [facility] Attending Dr: Niki Weeks MD Copies to: [...] % (Auto) 91.6, Lymph % (Auto) 4.4, [place] % (Auto) 4.0, Eos % (Auto) 0.0, Baso % (Auto) 0.0, Nucleat RBC Rel Count 0.1, Neut # (Auto) 10.4 H, Lymph #(Auto) 0.5 L, [place] # (Auto) 0.5, Eos # (Auto) 0.0, [...] <Electronically signed by Niki Weeks MD> 08/04/23 0751 [facility] Work Phone: 1(197) 512-654908-23-2023 Evaluation note* Encounter Date Diagnosis Assessment Notes Treatment Notes Treatment Clinical Notes Jun, Lumbar stenosis with neurogenic claudication (ICD-10 - M48.062) [employer] Other 06-22-2023 Evaluation note* Encounter Date Diagnosis [...] will continue with this therapy without change. [employer] Other 06-19-2023 Evaluation note* Encounter Date Diagnosis Assessment Notes Treatment Notes Treatment Clinical Notes Apr, Lumbosacral spondylosis with radiculopathy (ICD-10 - M47.27) [employer] Other 06-19-2023 Evaluation note* Encounter Date Diagnosis [...] until MRI completed MRI being rescheduled for [facility] due to PM Apr, Stage 3b chronic kidney disease (ICD-10 - N18.32) The patient is instructed on adequate control of hypertension and diabetes, if appropriate. They are also educated on the associated risks of NSAIDs and PPI use with kidney disease. They were instructed on adequate fluid balance and to avoid dehydration. Apr, History of lumbar fusion (ICD-10 - Z98.1) [employer] Other 05-15-2023 Evaluation note* Encounter Date Diagnosis Assessment Notes Treatment Notes Treatment Clinical Notes March, Lumbosacral spondylosis with radiculopathy (ICD-10 - M47.27) [employer] Other 05-11-2023 Evaluation note* Encounter Date Diagnosis [...] use, the patient reduces the risk for [place], CVA, HTN, cardiac dysrhythmias and sudden cardiac [...] Other Stable w/o breakthrough Sz. Secondary to ROAD OILER surgery Continue surveillance w/ [employer] Other 2023 Evaluation note* Encounter Date Diagnosis Assessment Notes Treatment Notes Treatment Clinical Notes Jan, Nausea (ICD-10 - R11.0) [employer] Other 02-23-2023 Evaluation note* Encounter Date Diagnosis Assessment Notes Treatment Notes Treatment Clinical Notes Dec, Nausea (ICD-10 - R11.0) Increase Amitriptyline to 15mg at bedtime Dec, Constipation (ICD-10 - K59.00) Start Linzess 72mcg daily Pt to call if symptoms worsen or return Follow up in 4 months [employer] Other 01-11-2023 Evaluation note* Encounter Date Diagnosis [...] use, the patient reduces the risk for [place], CVA, HTN, cardiac dysrhythmias and sudden cardiac [...] to trial Amitiza and discuss w/ GI [employer] Other 10-27-2022 History of Present illness Narrative* Lauren Otero APRN.STRATEGY MANAGER - 09/10/2022 1:53 PM EDT [facility] CHIEF COMPLAINT: Patient presents with: [...] She was referred to the headacheclinic at [facility] in the past but at this [...] There is no focal weakness. PREVIOUS EVALUATIONS: [facility], 05/2015: Right Temporal Epilepsy Seizures: Aura [...] by Dr. Alejandro Villar. documented in this encounterRegional Medical Center09-08-2022 History of Present illness Narrative* Kitty Millard MD - 07/23/2022 10:00 AM EDT Images from the original note were not included. [facility] [place] [facility] Department of Cardiovascular Medicine SECTION OF CARDIAC PACING and ELECTROPHYSIOLOGY OUTPATIENT VISIT DATE July 23, 2022 OUTPATIENT VISIT TYPE ESTABLISHED PRIMARY CARE PHYSICIAN: Broderick Howard MD ([facility]) [facility] [place] [address] [place] [address] CHIEF COMPLAINT: Pacemaker management HISTORY OF PRESENT [...] Lymph 1.00 - 4.00 k/uL 0.93 (L) Cambria% % 7.7 Abs Cambria <0.87 k/uL 0.32 Eosin% % 5.3 Abs [...] Kitty Millard MD Electrophysiology documented in this encounterRegional Medical Center02-22-2022 Evaluation note* Encounter Date Diagnosis Assessment Notes Treatment Notes Treatment Clinical Notes Dec, Nausea (ICD-10 - R11.0) PATIENT STATES THAT THIS HAS IMPROVED. PATIENT TO CONTINUE ON THE AMITRIPTYLINE DOSE AT THIS TIME. [employer] Other 03-12-2015 History of Past illness Narrative* Problem Noted Date Resolved Date Seizure 01/24/2015 06/21/2018 documented as of this encounter (statuses as of 07/23/2022) [address]12-2015 History of Past illness Narrative* Problem Noted Date Resolved Date Seizure 01/24/2015 06/21/2018 documented as of this encounter (statuses as of 08/26/2022) [address]-2015 History of Past illness Narrative* Problem Noted Date Resolved Date Seizure 01/24/2015 06/21/2018 documented as of this encounter (statuses as of 09/10/2022) [address]2015 History of Past illness Narrative* Problem Noted Date Resolved Date Seizure 01/24/2015 06/21/2018 documented as of this encounter (statuses as of 11/26/2022) [address]2015 History of Past illness Narrative* Problem Noted Date Resolved Date Seizure 01/24/2015 06/21/2018 documented as of this encounter (statuses as of 02/25/2023) [address]2015 History of Past illness Narrative* Problem Noted Date Diagnosed Date Resolved Date Seizure 01/24/2015 06/21/2018 documented as of this encounter (statuses as of 06/17/2023) [address]2015 History of Past illness Narrative* Problem Noted Date Diagnosed Date Resolved Date Seizure 01/24/2015 06/21/2018 documented as of this encounter (statuses as of 09/08/2023) [address] History of Past illness Narrative* Problem Noted Date Diagnosed Date Resolved Date Seizure 01/24/2015 06/21/2018 documented as of this encounter (statuses as of 09/09/2023) [facility] Narrative* Problem Noted Date Diagnosed Date Resolved Date Seizure 01/24/2015 06/21/2018 documented as of this encounter (statuses as of 09/14/2023) [facility] Narrative* Problem Noted Date Diagnosed Date Resolved Date Seizure 01/24/2015 06/21/2018 documented as of this encounter (statuses as of 09/14/2023) [facility] of [facility] illness Narrative* Problem Noted Date Diagnosed Date Resolved Date Seizure 01/24/2015 06/21/2018 documented as of this encounter (statuses as of 12/23/2023) [facility] Author Niki Weeks [facility] August 05, 2023 8:09am Note Date/Time August 05, 2023 8:09am [facility] [address] [place] [address] Discharge Summary Signed Patient: Cassi Rodrigez MR#: [id number] : 1950 Acct:[id number] Age/Sex: 73 / F Adm Date: 3 Loc: Room: 2H6028-[address]: Niki Weeks MD Copies to: [...] % (Auto) 77.1, Lymph % (Auto) 11.8, [place] % (Auto) 9.2, Eos % (Auto) 1.7, Baso % (Auto) 0.2, Nucleat RBC Rel Count 0.4, Neut # (Auto) 5.6, Lymph # (Auto) 0.9 L, [place] # (Auto) 0.7, Eos # (Auto) 0.1, [...] Home Activity: Ambulate as Tolerated Comment: Mrs. Rodriegz must walk multiple times daily Diet: Regular [...] signed by Niki Weeks MD> 08/05/23 0809 [facility] Work Phone: Evaluation + Plan note Future Appointments Appointment Date:10/25/2024 10:30:00 AM Scheduled Provider: Location:[facility] Appointment Type:Surgical PAT FT Appointment Date:11/02/2024 12:30:00 PM Scheduled Provider: Location:[facility] [facility] Appointment Type:Surgery FT [facility] Evaluation note* Diagnosis Chronic fatigue- Primary Other malaise and fatigue documented in this encounter [facility]* Diagnosis Partial epilepsy with impairment of consciousness, intractable (HCC) Localization-related (focal) (partial) epilepsy and epileptic syndromes with complex partial seizures, with intractable epilepsy documented in this encounter [facility] noteNo assessment information [facility] Work Phone: evaluation noteNo InformationNochrist[facility] hospital [employer] Other evaluation note* Diagnosis Onset Date Resolution Status Lumbar stenosis with neurogenic claudication acute [facility] Work Phone: Evalupbcqs note* Diagnosis Sinus node dysfunction (HCC)- Primary Sinoatrial node dysfunction Cardiac pacemaker in situ Bradycardia Other specified cardiac dysrhythmias documented in this encounter [facility]* Diagnosis Partial epilepsy with impairment of consciousness, intractable (HCC) Localization-related (focal) (partial) epilepsy and epileptic syndromes with complex partial seizures, with intractable epilepsy documented in this encounter [facility]* Diagnosis Pacemaker [Z95.0]- Primary Cardiac pacemaker in situ documented in this encounter [facility]* Diagnosis Intractable 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 aura and without status migrainosus- Primary Chronic migraine without aura, with intractable migraine, so stated, without mention of status migrainosus documented [facility] this encounter [facility]* Diagnosis Intractable 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 aura and without status migrainosus- Primary Chronic migraine without aura, with intractable migraine, so stated, without mention of status migrainosus Cervicalgia SHELL (obstructive sleep apnea) Obstructive sleep apnea (adult) (pediatric) documented in this encounter [facility]* Diagnosis Onset Date Resolution Status Hypertension acute Lumbar stenosis with neurogenic claudication acute [facility] Work Phone: Evaluation note* Diagnosis Onset Date Resolution Status Hypertension acute Lumbar stenosis with neurogenic claudication acute Age-related osteoporosis wit hout current pathological fracture acute Chronic kidney disease acute Hypertension acute Lumbosacral spondylosis with radiculopathy acute Obstructive sleep apnea acut e [facility] Work Phone: Evaluation note* Diagnosis Intractable 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 aura and without status migrainosus- Primary Chronic migraine without aura, with intractable migraine, so stated, without mention of status migrainosus documented in this encounter [facility]* Diagnosis Onset Date Resolution Status Age-related osteoporosis wit hout current pathological fracture acute Chronic kidney disease acute Hypertension acute Lumbosacral spondylosis with radiculopathy acute Obstructive sleep apnea acut e Arthropathy of right hip acu te Greater trochanteric bursitis of both hips acute History of lumbar surgery ac [place] Pain of both sacroiliac joints acute [facility] Work Phone: Evaluation note* Diagnosis Onset Date Resolution Status Age-related osteoporosis wit hout current pathological fracture acute Chronic kidney disease acute Hypertension acute Lumbosacral spondylosis with radiculopathy acute Obstructive sleep apnea acut e Arthropathy of right hip acu te Greater trochanteric bursitis of both hips acute History of lumbar surgery ac [place] Pain of both sacroiliac joints acute Anemia of renal disease acut e Chronic kidney disease acute [id number] acute Leukopenia acute Pancreatic cancer acute Secondary hyperparathyroidism acute Vitamin D deficiency acute [facility] Work Phone: Evaluation note* Diagnosis Onset Date Resolution Status Age-related osteoporosis wit hout current pathological fracture acute Chronic kidney disease acute Hypertension acute Lumbosacral spondylosis with radiculopathy acute Obstructive sleep apnea acut e Arthropathy of right hip acu te Greater trochanteric bursitis of both hips acute History of lumbar surgery ac [place] Pain of both sacroiliac joints acute Anemia of renal disease acut e CKD (chronic kidney disease) stage 4, GFR 15-29 ml/min acute [id number] acute Leukopenia acute Secondary hyperparathyroidism acute Age-related osteoporosis wit hout current pathological fracture acute Chronic kidney disease acute Gastroesophageal reflux dise ase with esophagitis without hemorrhage acute History of pancreatic cancer acute Hypertension acute Lumbar stenosis with neurogenic claudication acute Major depression acute Medicare annual wellness visit, subsequent noneactive Screening mammogram for breast cancer noneactive [facility] Work Phone: Evaluation note* Diagnosis Focal epilepsy with impairment of consciousness, intractable (HCC)- Primary Localization-related (focal) (partial) epilepsy and epileptic syndromes with simple partial seizures, with intractable epilepsy Partial epilepsy with impairment of consciousness, intractable (HCC) Localization-related (focal) (partial) epilepsy and epileptic syndromes with complex partial seizures, with intractable epilepsy [facility] encounter [facility]* Diagnosis Onset Date Resolution Status Arthropathy of right hip acu te Greater trochanteric bursitis of both hips acute History of lumbar surgery ac [place] Pain of both sacroiliac joints acute Anemia of renal disease acut e CKD (chronic kidney disease) stage 4, GFR 15-29 ml/min acute [id number] acute Leukopenia acute Secondary hyperparathyroidism acute Age-related osteoporosis wit hout current pathological fracture acute Chronic kidney disease acute Gastroesophageal reflux dise ase with esophagitis without hemorrhage acute History of pancreatic cancer acute Hypertension acute Lumbar stenosis with neurogenic claudication acute Major depression acute Medicare annual wellness visit, subsequent noneactive Screening mammogram for breast cancer noneactive [facility] Work Phone: Evaluation note* Diagnosis Onset Date Resolution Status Anemia of renal disease acut e CKD (chronic kidney disease) stage 4, GFR 15-29 ml/min acute [id number] acute Leukopenia acute Secondary hyperparathyroidism acute Age-related [...] disease) acute Nausea acute Pancreatic cancer acute [facility] Work Phone: Evaluation note* Diagnosis Sinus node dysfunction (HCC)- Primary Sinoatrial node dysfunction Cardiac pacemaker in situ Bradycardia Other specified cardiac dysrhythmias documented in this encounter [facility]* Diagnosis Intractable 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 aura and without status migrainosus- Primary Chronic migraine without aura, with intractable migraine, so stated, without mention of status migrainosus documented in this encounter [facility]* Diagnosis Onset Date Resolution Status Age-related [...] disease) stage 4, GFR 15-29 ml/min acute [id number] acute Secondary hyperparathyroidism acute [facility] Work Phone: Evaluation note* Diagnosis Abdominal wall hematoma, initial encounter- Primary [facility]* Diagnosis Localization-related (focal) (partial) symptomatic epilepsy and epileptic syndromes with complex partial seizures, intractable, without status epilepticus (HCC) documented in this encounter [facility]* Diagnosis Abdominal wall hematoma, subsequent encounter- Primary [facility]* Diagnosis Localization-related (focal) (partial) symptomatic epilepsy and epileptic syndromes with complex partial seizures, intractable, without status epilepticus (HCC)- Primary Memory loss documented in this encounter [facility]* Diagnosis Intractable 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 aura and without status migrainosus- Primary Chronic migraine without aura, with intractable migraine, so stated, without mention of status migrainosus documented in this encounter [facility]* Diagnosis MCI (mild cognitive impairment)- Primary Mild cognitive impairment, so stated documented in this encounter [facility]* Diagnosis Intractable 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 aura and without status migrainosus- Primary Chronic migraine without aura, with intractable migraine, so stated, without mention of status migrainosus documented in this encounter [facility]* Diagnosis Chronic pain syndrome- Primary MCI (mild cognitive impairment) Mild cognitive impairment, so stated Sinus node dysfunction (HCC) Sinoatrial node dysfunction Obesity, Class II, BMI 35-39.9 Obesity, unspecified [facility]* Diagnosis Onset Date Resolution Status Admit [...] david st cancer noneactive July 02 2:50pm [facility] Work Phone: Evaluation note* Diagnosis Intractable 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 aura and without status migrainosus- Primary Chronic migraine without aura, with intractable migraine, so stated, without mention of status migrainosus documented in this encounter [facility] general Narrative - Reported* Type Description Date Surgical History back surgery-2 Surgical History cervical fusion Surgical History cholecystectomy Surgical History whipple procedure 2010 Surgical History appendectomy Surgical History hammer toe Surgical History rotator cuff-left Surgical History temporal lumpectomy Hospitalization History see surgical hx [employer] Other HisENJORE general Narrative - Reported* Type Description Date [...] temporal lumpectomy Hospitalization History see surgical hx [employer] Other History general Narrative - Reported* Type [...] Essential hypertension Medical History Current use of termite treater helper anticoa gulation Medical History History of pancreatic [...] Port removal Hospitalization History see surgical hx [employer] Other History general Narrative - Reported* Type [...] Obstructive sleep apnea Medical History [facility] for [facility] exam with routine gynecological [...] Essential hypertension Medical History Current use of termite treater helper anticoa gulation Medical History History of pancreatic [...] L4-5 07/2023 Hospitalization History see surgical hx [employer] Other Hospital course Narrative No data available for this section [facility] Hospital Discharge instructions Additional Instructions Eat a well balanced [facility] Work Phone: Hospital Discharge instructionsAmbulatory Orders* Referral to Orthopedic Surgery Location: None [facility] Work Phone: Hospital Discharge instructions No data available for this section [facility] Hospital Discharge instructions Additional Instructions As discussed you should hold your Coumadin for 5 days Wear abdominal binder as discussed Call Dr. Howard your primary care doctor on Wednesday let him know that you should be evaluated Please return here if you develop any dizziness, chest pain, shortness of breath, fevers, chills increased abdominal swelling, lightheadedness or any other [facility] Work Phone: Progress note Author Niki Weeks [facility] August 05, 2023 8:00am Note Date/Time August 05, 2023 8:00am [facility] [address] [place] [address] Neurosurgery Progress Note Signed Patient: Cassi Rodrigez MR#: [id number] : 1950 Acct:[id number] Age/Sex: 73 / F Adm Date: 3 Loc: Room: [address] [place] [address] Type: REG SDC Attending Dr: Niki Weeks [...] % (Auto) 77.1, Lymph % (Auto) 11.8, Cambria % (Auto) 9.2, Eos % (Auto) 1.7, Baso % (Auto) 0.2, Nucleat RBC Rel Count 0.4, Neut # (Auto) 5.6, Lymph # (Auto) 0.9 L, [place]ria # (Auto) 0.7, Eos # (Auto) 0.1, [...] signed by Niki Weeks MD> 08/05/23 0800 [facility] Work Phone: Progress note No data available for this section [facility] Reason for referral (narrative)* Outpatient Procedure (Routine) - Closed Specialty Diagnoses / Procedures Referred By Contac t Referred To Contact [facility] [place] Diagnoses Chronic fatigue Procedures ECG COMPLETE ECG ROUTINE ECG W/LEAST 12 LDS W/I&[place] [address] [place] [address] [facility][Note 3] [facility] [place] [address] [place] [address] Referral ID Status Reason Start Date Expiration Date V isits Requested Visits Authorized [id number] Closed Auto-Generate d Referral 07/23/2022 07/23/2023 1 1 [facility] for referral (narrative)* Outpatient Procedure (Routine) - Pending Review Specialty Diagnoses / Procedures Referred By Contac t Referred To Contact [facility] [place] Diagnoses Sinus node dysfunction (HCC) Cardiac pacemaker in situ Bradycardia Procedures ECG COMPLETE ECG ROUTINE ECG W/LEAST 12 LDS W/I&R Mirian Bell APRN.CNP [address] [place] [address] [facility][Note 3] [facility] [place] [address] [place] [address] Referral ID Status Reason Start Date Expiration Date Visits Requested Visits Authorized [id number] Pending Review Auto-Generat ed Referral 3 09/07/2024 1 1 [facility] for referral (narrative)* Outpatient Procedure (Routine) - Pending Review Specialty Diagnoses / Procedures Referred By Contac t Referred To Contact [facility] [place] Diagnoses Sinus node dysfunction (HCC) Procedures ECHO ECHO TTHRC R-T 2D W/WOM-MODE COMPL SPEC&[place] [address] [place] [address] [facility][Note 3] Vascular [address] [address] Referral ID Status Reason Start Date Expiration Date Visits Requested Visits Authorized [id number] Pending Review Auto-Generat ed Referral 4 08/31/2025 1 1 * Outpatient Procedure (Routine) - New Request Specialty Diagnoses / Procedures Referred By Saturnino bhatia Referred To Contact [facility] Diagnoses Sinus node dysfunction (HCC) Procedures ECG COMPLETE ECG ROUTINE ECG W/LEAST 12 LDS W/I&[place] [address] [place] [address] [place] [id number] [place] [address] Referral ID Status Reason Start Date Expiration Date Visits Requested Visits Authorized [id number] New Request Auto-Generat ed Referral 4 08/31/2025 1 1 [facility] for referral (narrative)No reason for referral [facility] Work Phone: Reason for visit Narrative* Injectable (Routine) - Authorized Specialty Diagnoses / Procedures Referred By Saturnino t Referred To Contact ADULT NEUROLOGY Diagnoses Chronic migraine without aura, intractable, without status migrainosus Procedures BOTULINUM TOXIN A PER 1 UNIT CHEMODERVATE FACIAL/TRIGEM/[place] [address] [place] [address] Phone: tel: fax: Neurology [address] [place] [address] Phone: tel: fax: Referral ID Status Reason Start Date Expiration Date V isits Requested Visits Authorized [id number] Authorized 03/13/2024 11/14/2025 8 [facility] Purpose Family History No Family History [...] 2:50pm Screening mammogram for breast cancer [facility] 2024 2:50pm Chief Complaint m47.27 Chief Complaint m47.27 m47.27 Chief Complaint m47.27 m47.27 stenosis Chief Complaint m47.27 m47.27 stenosis stenosis Reason for Visit Lumbar stenosis with neurogenic claudication Chief Complaint Cough , Drainage For Weeks [phone] BACK ISSUES Chief Complaint BACK ISSUES Amb [...] Anemia of renal disease Chronic kidney disease [id number] Leukopenia Pancreatic cancer Secondary hyperparathyroidism Vitamin D [...] kidney disease) stage 4, GFR 15-29 ml/min [id number] Leukopenia Secondary hyperparathyroidism Age-related osteoporosis without current [...] kidney disease) stage 4, GFR 15-29 ml/min [id number] Leukopenia Secondary hyperparathyroidism Age-related osteoporosis without current pathological fracture Chronic kidney disease Gastroesophageal reflux disease with esophagitis without hemorrhage History of pancreatic cancer Hypertension Lumbar stenosis with neurogenic claudication Major depression Medicare annual wellness visit, subsequent Screening mammogram for breast cancer Chief Complaint RENAL CKD MAWV Unknown 1 YR F/U-CONSTIPATION/NAUSEA Reason for Visit Anemia of renal dise [facility] CKD (chronic kidney disease) stage 4, GFR 15-29 ml/min [id number] Leukopenia Secondary hyperparathyroidism Age-related osteoporosis without current [...] Reason for Visit Anemia of renal dise [facility] CKD (chronic kidney disease) stage 4, GFR 15-29 ml/min [id number] Leukopenia Secondary hyperparathyroidism Age-related osteoporosis without current [...] Reason for Visit Anemia of renal dise [facility] CKD (chronic kidney disease) stage 4, GFR 15-29 ml/min [id number] Leukopenia Secondary hyperparathyroidism Age-related osteoporosis without current [...] kidney disease) stage 4, GFR 15-29 ml/min [id number] Secondary hyperparathyroidism Chief Complaint Admit Date 1 [...] 2024 8:49am Preop exam for internal medicine [facility] r 2023 8:49am Chief Complaint Admit [...] 2024 8:49am Preop exam for internal medicine [facility] 2023 8:49am Adverse effect of anticoagul [...] 0:35am stomach pain-sent by November 24 1:33pm [facility] ER f/u November 28, 2024 1 0:54am [...] 2024 8:49am Preop exam for internal medicine [facility] r 2023 8:49am Adverse effect of [...] 0:35am stomach pain-sent by November 24 1:33pm [facility] ER f/u November 28, 2024 1 0:54am [...] 2024 8:49am Preop exam for internal medicine [facility] 2023 8:49am Adverse effect of anticoagul [...] 0:35am stomach pain-sent by November 24 1:33pm [facility] ER f/u November 28, 2024 1 0:54am [...] 0:35am stomach pain-sent by November 24 1:33pm [facility] ER f/u November 28, 2024 1 0:54am [...] By Contac t Referred To Contact [facility] [place] Diagnoses Cervicalgia Procedures CONSULT TO SPINE [facility]ICAL CENTER OFFICE/OUTPATIENT [facility] [address] [place] [address] [place] [id number] Referral ID Status Reason Start Date Expiration Date Visits Requested Visits Authorized [id number] Authorized PCP Requested Referral 03/07/2024 03/07/2025 1 1 Specialty Diagnoses / Procedures Referred By Contac t Referred To Contact Diagnoses SHELL (obstructive sleep apnea) Procedures CONSULT TO SLEEP MEDICINE - ADULT OFFICE/OUTPATIENT [facility] 60 [place] [address] [place] [id number] Referral ID Status Reason Start Date Expiration Date Visits Requested Visits Authorized [id number] Authorized PCP Requested Referral 03/07/2024 03/07/2025 1 1 Specialty Diagnoses / Procedures Referred By Contac t Referred To Contact [facility] Diagnoses Intractable 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 aura and without status migrainosus Procedures CONSULT TO HEADACHE CLINIC OFFICE/OUTPATIENT [facility] MDM 60 MINUTES Lauren Otero, CONNIE.STRATEGY MANAGER [address] [place] [id number] Neur Headache Main [address] [place] [id number] Referral ID Status Reason Start Date Expiration Date Visits Requested Visits Authorized [id number] Authorized PCP Requested Referral 12/23/2023 12/22/2024 1 1 Additional Source Comments REASON FOR VISIT (unrecogniz ed section and content) Reason Comments Established Patient Botox treatment Chronic Migraine Specialty Diagnoses / Procedures Referred By Contac t Referred To Contact ADULT NEUROLOGY Diagnoses Chronic migraine without aura, intractable, without status migrainosus Procedures BOTULINUM TOXIN A PER 1 UNIT CHEMODERVATE FACIAL/TRIGEM/[place] [address] [place] [address] Phone: tel: fax: Neurology [address] [place] [id number] Phone: tel: fax: Referral ID Status Reason Start Date Expiration Date V isits Requested Visits Authorized [id number] Authorized 03/13/2024 11/14/2025 8 8 Reason Comments [...] Procedures CONSULT TO HEADACHE CLINIC OFFICE/OUTPATIENT [facility] MDM 60 MINUTES Lauren Otero, CONNIE.STRATEGY MANAGER [address] [place] [phone] Neur Headache Main [address] [place] [id number] Referral ID Status Reason Start Date Expiration Date V isits Requested Visits Authorized [id number] Closed PCP Requested Referral 12/23/2023 12/22/2024 1 1 Reason Comments Established Patient botox Specialty Diagnoses / Procedures Referred By Contac t Referred To Contact ADULT NEUROLOGY Diagnoses Chronic migraine without aura, intractable, without status migrainosus Procedures BOTULINUM TOXIN A PER 1 UNIT CHEMODERVATE FACIAL/TRIGEM/[place] [address] [facility] [place] [address] [place] [address] Referral ID Status Reason Start Date Expiration Date V isits Requested Visits Authorized [id number] Authorized 03/13/2024 03/13/2025 4 4 Reason Comments Epilepsy Reason Comments Cardiology Follow Up Specialty Diagnoses / Procedures Referred By Contac t Referred To Contact ADULT NEUROLOGY Diagnoses Chronic migraine without aura, intractable, without status migrainosus Procedures BOTULINUM TOXIN A PER 1 UNIT CHEMODERVATE FACIAL/TRIGEM/[place] [address] [facility] [place] [address] [place] [address] Reason Comments Large abdominal hematoma Reason Comments [...] Alejandro Villar MD, PhD [address] [place] [address] Phone: tel: fax: Outpatient Referral [address] [address] Referral ID Status Reason Start Date Expiration Date V isits Requested Visits Authorized [id number] Closed PCP Requested Referral 05/07/2025 11/14/2025 1 1 Source Comments (unrecognize d section and content) In the event this informatio n is protected by the Federal Confidentiality of Alcohol and Drug Abuse Patient Records regulations: The Federal rules restrict any use of the information to criminally investigate or prosecute any alcohol or drug abuse patient.[facility] CenterIn the event this information is protected by the Federal Confidentiality of Alcohol and Drug Abuse Patient Records regulations: The Federal rules restrict any use of the information to criminally investigate or prosecute any alcohol or drug abuse patient.[facility] CenterIn the event this information is protected by the Federal Confidentiality of Alcohol and Drug Abuse Patient Records regulations: The Federal rules restrict any use of the information to criminally investigate or prosecute any alcohol or drug abuse patient.[facility] CenterIn the event this information is protected by the Federal Confidentiality of Alcohol and Drug Abuse Patient Records regulations: The Federal rules restrict any use of the information to criminally investigate or prosecute any alcohol or drug abuse patient.[facility] CenterIn the event this information is protected by the Federal Confidentiality of Alcohol and Drug Abuse Patient Records regulations: The Federal rules restrict any use of the information to criminally investigate or prosecute any alcohol or drug abuse patient.[facility] CenterIn the event this information is protected by the Federal Confidentiality of Alcohol and Drug Abuse Patient Records regulations: The Federal rules restrict any use of the information to criminally investigate or prosecute any alcohol or drug abuse patient.[facility] CenterIn the event this information is protected by the Federal Confidentiality of Alcohol and Drug Abuse Patient Records regulations: The Federal rules restrict any use of the information to criminally investigate or prosecute any alcohol or drug abuse patient.[facility] CenterIn the event this information is protected by the Federal Confidentiality of Alcohol and Drug Abuse Patient Records regulations: The Federal rules restrict any use of the information to criminally investigate or prosecute any alcohol or drug abuse patient.[facility] CenterIn the event this information is protected by the Federal Confidentiality of Alcohol and Drug Abuse Patient Records regulations: The Federal rules restrict any use of the information to criminally investigate or prosecute any alcohol or drug abuse patient.[facility] CenterIn the event this information is protected by the Federal Confidentiality of Alcohol and Drug Abuse Patient Records regulations: The Federal rules restrict any use of the information to criminally investigate or prosecute any alcohol or drug abuse patient.[facility] CenterIn the event this information is protected by the Federal Confidentiality of Alcohol and Drug Abuse Patient Records regulations: The Federal rules restrict any use of the information to criminally investigate or prosecute any alcohol or drug abuse patient.[facility] CenterIn the event this information is protected by the Federal Confidentiality of Alcohol and Drug Abuse Patient Records regulations: The Federal rules restrict any use of the information to criminally investigate or prosecute any alcohol or drug abuse patient.[facility] CenterIn the event this information is protected by the Federal Confidentiality of Alcohol and Drug Abuse Patient Records regulations: The Federal rules restrict any use of the information to criminally investigate or prosecute any alcohol or drug abuse patient.[facility] CenterIn the event this information is protected by the Federal Confidentiality of Alcohol and Drug Abuse Patient Records regulations: The Federal rules restrict any use of the information to criminally investigate or prosecute any alcohol or drug abuse patient.[facility] CenterIn the event this information is protected by the Federal Confidentiality of Alcohol and Drug Abuse Patient Records regulations: The Federal rules restrict any use of the information to criminally investigate or prosecute any alcohol or drug abuse patient.[facility] CenterIn the event this information is protected by the Federal Confidentiality of Alcohol and Drug Abuse Patient Records regulations: The Federal rules restrict any use of the information to criminally investigate or prosecute any alcohol or drug abuse patient.[facility] CenterIn the event this information is protected by the Federal Confidentiality of Alcohol and Drug Abuse Patient Records regulations: The Federal rules restrict any use of the information to criminally investigate or prosecute any alcohol or drug abuse patient.[facility] CenterIn the event this information is protected by the Federal Confidentiality of Alcohol and Drug Abuse Patient Records regulations: The Federal rules restrict any use of the information to criminally investigate or prosecute any alcohol or drug abuse patient.[facility] CenterIn the event this information is protected by the Federal Confidentiality of Alcohol and Drug Abuse Patient Records regulations: The Federal rules restrict any use of the information to criminally investigate or prosecute any alcohol or drug abuse patient.[facility] CenterIn the event this information is protected by the Federal Confidentiality of Alcohol and Drug Abuse Patient Records regulations: The Federal rules restrict any use of the information to criminally investigate or prosecute any alcohol or drug abuse patient.[facility] CenterIn the event this information is protected by the Federal Confidentiality of Alcohol and Drug Abuse Patient Records regulations: The Federal rules restrict any use of the information to criminally investigate or prosecute any alcohol or drug abuse patient.[facility] CenterIn the event this information is protected by the Federal Confidentiality of Alcohol and Drug Abuse Patient Records regulations: The Federal rules restrict any use of the information to criminally investigate or prosecute any alcohol or drug abuse patient.[facility] CenterIn the event this information is protected by [...] alcohol or drug abuse patient.[facility] Care Teams (unrecognized sec tion and content) [...] End: February 21, 2025 Josefina Adams APRN SALES TRADER-C Attending Provider Act lauryn Start: February 21, [...] March 09, 2024 End: March 09, 2024 Agricultural Service Worker Relationship Specialty Start Date End Date Lee Broderick [place], [address] [id number] PCP - General Internal Medicine 09/21/18 Kitty Valente MD [address] [place] [address] Primary Staff Physician Cardiology 01/31/19 Agricultural Service Worker Relationship Specialty Start Date End Date Lee Broderick DO [place] [address] [place] [address] PCP - General Internal Medicine 09/21/18 Kitty Valente MD [address] [place] [address] Primary Staff Physician Cardiology 01/31/19 Agricultural Service Worker Relationship Specialty Start Date End Date Broderick Howard, DO [address] [facility] [place] [address] PCP - General Internal Medicine 09/21/18 Kitty Valente MD [address] [place] [address] Primary Staff Physician Cardiology 01/31/19 Agricultural Service Worker Relationship Specialty Start Date End Date Broderick Howard, DO [address] [facility] [address] PCP - General Internal Medicine 09/21/18 Kitty Valente MD [address] [place] [address] Primary Staff Physician Cardiology 01/31/19 Agricultural Service Worker Relationship Specialty Start Date End Date Broderick Howard, DO [address] [place] [facility] [place] [address] PCP - General Internal Medicine 09/21/18 Kitty Valente MD [address] [place] [address] Primary Staff Physician Cardiology 01/31/19 Team Status: Inactive Member Role Status Dates Broderick Howard DO Primary Care Provider, Attending Pr ovider Active Agricultural Service Worker Relationship Specialty Start Date End Date Broderick Howard DO [address] [place] [facility] [place] [address] PCP - General Internal Medicine 09/21/18 Kitty Valente MD [address] [place] [address] Primary Staff Physician Cardiology 01/31/19 Team Status: Inactive Member Role Status Dates Broderick Howard DO Primary Care Provider Active Niki Weeks MD Attending Provider Active Agricultural Service Worker Relationship Specialty Start Date End Date Broderick Howard DO [address] [facility] [place] [address] PCP - General Internal Medicine 09/21/18 Kitty Valente MD [address] [place] [address] Primary Staff Physician Cardiology 01/31/19 Agricultural Service Worker Relationship Specialty Start Date End Date Broderick Howard DO [address] [place] [address] PCP - General Internal Medicine 09/21/18 Kitty Valente MD [address] [place] [address] Primary Staff Physician Cardiology 01/31/19 Agricultural Service Worker Relationship Specialty Start Date End Date Broderick Howard DO [address] [id number] PCP - General Internal Medicine 09/21/18 Kitty Valente MD [address] [place] [address] Primary Staff Physician Cardiology 01/31/19 Agricultural Service Worker Relationship Specialty Start Date End Date Broderick Howard DO [address] [id number] PCP - General Internal Medicine 09/21/18 Kitty Valente MD [address] [place] [address] Primary Staff Physician Cardiology 01/31/19 Agricultural Service Worker Relationship Specialty Start Date End Date Broderick Howard DO [address] [place] [address] PCP - General Internal Medicine 09/21/18 Kitty Valente MD [address] [place] [address] Primary Staff Physician Cardiology 01/31/19 Team Status: Inactive Member Role Status Dates Broderick Howard DO Attending Provider Active Sta rt: November 24, 2023 End: November 24, 2023 Team Status: Inactive Member Role Status Dates Broderick Howard DO Primary Care Provide r, Attending Provider Active Start: February 09, 2024 End: February 09, 2024 Agricultural Service Worker Relationship Specialty Start Date End Date Broderick Howard DO [address] [place] [address] PCP - General Internal Medicine 09/21/18 Kitty Valente MD [address] [place] [address] Primary Staff Physician Cardiology 01/31/19 Team Status: Active Member Role Status Dates Broderick Howard DO Primary Care Provide r, Attending Provider Active Start: February 10, 2024 Team Status: Active Member Role Status Dates Broderick Howard DO Primary Care Provider Active Start: February 15, 2024 HERSON Golden Attending Provider Active St art: February 15, 2024 Agricultural Service Worker Relationship Specialty Start Date End Date Broderick Howard DO [address] [id number] PCP - General Internal Medicine 09/21/18 Kitty Valente MD [address] [place] [address] Primary Staff Physician Cardiology 01/31/19 Agricultural Service Worker Relationship Specialty Start Date End Date Broderick Howard DO [address] [id number] PCP - General Internal Medicine 09/21/18 Kitty Valente MD [address] [place] [address] Primary Staff Physician Cardiology 01/31/19 Agricultural Service Worker Relationship Specialty Start Date End Date Broderick Howard DO [address] [place] [address] PCP - General Internal Medicine 09/21/18 Kitty Valente MD [address] [place] [address] Primary Staff Physician Cardiology 01/31/19 Agricultural Service Worker Relationship Specialty Start Date End Date Broderick Howard MD [address] [facility] [place] [address] PCP - General Internal Medicine 05/03/24 Agricultural Service Worker Relationship Specialty Start Date End Date Broderick Howard MD [address] [phone] PCP - General Internal Medicine 05/03/24 Agricultural Service Worker Relationship Specialty Start Date End Date Broderick Howard DO [address] [place] [address] PCP - General Internal Medicine 09/21/18 Kitty Valente MD [address] [place] [address] Primary Staff Physician Cardiology 01/31/19 Agricultural Service Worker Relationship Specialty Start Date End Date Broderick Howard DO [address] [place] [address] PCP - General Internal Medicine 09/21/18 Kitty Valente MD [address] [place] [address] Primary Staff Physician Cardiology 01/31/19 Agricultural Service Worker Relationship Specialty Start Date End Date Broderick Howard DO [address] [place] [address] PCP - General Internal Medicine 09/21/18 Kitty Valente MD [address] [place] [address] Primary Staff Physician Cardiology 01/31/19 Team Status: Inactive Member Role Status Dates Broderick Howard DO Primary Care Provider Active Start: February 22, 2025 End: February 22, 2025 Katina Ordoñez MD Attending Provider Active Start : February 22, 2025 End: February 22, 2025 Agricultural Service Worker Relationship Specialty Start Date End Date Broderick Howard DO [address] [phone] PCP - General Internal Medicine 09/21/18 Kitty Valente MD [address] [place] [address] Primary Staff Physician Cardiology 01/31/19 Team Status: Inactive Member Role Status Dates Broderick Howard DO Primary Care Provider Active Start: July 02, 2025 End: July 02, 2025 Broderick Howard DO Attending Provider Active Sta rt: July 02, 2025 End: July 02, 2025 Agricultural Service Worker Relationship Specialty Start Date End Date Broderick Howard DO [address] [place] [address] PCP - General Internal Medicine 09/21/18 Kityt Valente MD [address] [place] [address] Primary Staff Physician Cardiology 01/31/19 Team Status: [...] DATE CREATED AUTHOR AUTHOR'S ORGANIZ ATION 04/23/2023 [facility] DATE CREATED AUTHOR AUTHOR'S ORGANIZ ATION 06/11/2023 [facility] DATE CREATED AUTHOR AUTHOR'S ORGANIZ ATION 06/10/2024 [facility] DATE CREATED AUTHOR AUTHOR'S ORGANIZ ATION 10/26/2024 [facility] DATE CREATED AUTHOR AUTHOR'S ORGANIZ ATION 10/28/2024 [facility] DATE CREATED AUTHOR AUTHOR'S ORGANIZ ATION 11/05/2024 [facility] DATE CREATED AUTHOR AUTHOR'S ORGANIZ ATION 11/06/2024 [facility] DATE CREATED AUTHOR AUTHOR'S ORGANIZ ATION 11/08/2024 [facility] DATE CREATED AUTHOR AUTHOR'S ORGANIZ ATION 12/15/2024 [facility] DATE CREATED AUTHOR AUTHOR'S ORGANIZ ATION 05/24/2025 [facility] DATE CREATED AUTHOR AUTHOR'S ORGANIZ ATION 05/31/2025 [facility] DATE CREATED AUTHOR AUTHOR'S ORGANIZ ATION 07/19/2025 [facility] DATE CREATED AUTHOR AUTHOR'S ORGANIZ ATION 08/05/2025 [facility] Goals (unrecognized section and content) [...] BE BASED ON THE PRIMARY CLINICAL RECORDS. [facility] [employer] provides no warranty or guarantee of the accuracy or completeness of information in this document.
[2025-08-06 09:09] LABS: Hematocrit 40.5 % (36.0-48.0); Hemoglobin 12.9 g/dL (12.0-16.0); Mean Corpuscular HGB Conc 31.9 g/dL (29.9-35.2); Mean Corpuscular Hemoglobin 32.3 pg (26.7-34.0); Mean Corpuscular Volume 101.5 fL (81.0-99.0); Platelet Count 204 10^3/uL (150-450); Red Blood Count 3.99 10^6/uL (4.20-5.40); White Blood Count 4.7 10^3/uL (4.0-11.0)
[2025-08-06 09:27] LABS: Protein Creatinine Ratio Urine 0.17; Total Protein Urine Random 22.3 mg/dL (<=11.9)
[2025-08-06 09:31] LABS: Albumin Level 3.9 g/dL (3.4-5.0); Anion Gap 16.2; Blood Urea Nitrogen 25.0 mg/dL (7.0-18.0); Calcium 8.5 mg/dL (8.5-10.1); Carbon Dioxide 23.9 mmol/L (21.0-32.0); Chloride 105 mmol/L (98-107); Estimated GFR (African America 34 (>=60 mL/min/1.73m^2); Estimated GFR (Non-African Ame 28 (>=60 mL/min/1.73m^2); Glucose 104 mg/dL (74-106); Magnesium 2.1 mg/dL (1.8-2.4); Potassium 4.1 mmol/L (3.5-5.1); Sodium 141 mmol/L (136-145); Uric Acid 5.1 mg/dL (2.6-6.0)
[2025-08-06 09:55] LABS: Glucose Urine UA NEGATIVE (NEGATIVE)
[2025-08-06 10:06] LABS: Iron 84.0 ug/dL (50.0-170.0); Percent Iron Saturation 30.2 %; Total Iron Binding Capacity 278.0 ug/dL (250.0-450.0)
[2025-08-06 10:24] LABS: Ferritin 74.0 ng/mL (8.0-252.0)
[2025-08-06 10:43] LABS: Cast Seen? NONE SEEN #/LPF (NONE SEEN); Crystals Seen? None Seen #/HPF (None Seen)
== END 2025-08-06 08:50 | disposition home or self-care (01) ==
LOC: LAB 08:49
PROVIDERS: PCP Internal Medicine; Visit Provider Internal Medicine
DX: I12.9 Hypertensive chronic kidney disease with stage 1 through stage 4 chronic kidney disease, or unspecified chronic kidney disease (principal); N18.4 Chronic kidney disease, stage 4 (severe); N25.81 Secondary hyperparathyroidism of renal origin; N18.9 Chronic kidney disease, unspecified; D63.1 Anemia in chronic kidney disease
CPT/HCPCS: 36415; 80069; 81001; 82306; 82570; 82728; 83540; 83550; 83735; 83970; 84156; 84550; 85027

== ENCOUNTER 2025-08-08 10:58 | Outpatient (OUT) | payer MEDICARE, SELFPAY ==
--- OUTSIDE RECORDS SUMMARY | 2025-08-08 11:01 | XMS_ITS | Encounter Summary ---
Author Organization [facility] Address [address] [place] [address] Care Team Providers Care Trousseau Consultant Name Role Phone Broderick Joiner DO Primary Care Provider [phone] Kitty Valente MD Unavailable Un available Source Comments In the event this information is protected by the Federal Confidentiality of Alcohol and Drug AbusePatient Records regulations: The Federal rules restrict any use of the information to criminally investigate or prosecute any alcohol or drug abuse patient.[facility] Encounter Details Date Type Department Care Team (Late st Contact Info) Description 03/01/2020 Patient Msg Neurology [address] [place] [address] [place] [address] [place] [address] Appointment Cancellation Request Social History Tobacco Use [...] 10/30/2025 10:30 AM EST Office Visit Neurology [address] [place] [address] [place] [address] [place] [address] Botox 01/09/2026 11:00 AM EST Office Visit Neurology [address] [place] [address] Ross Villar MD, PhD [address] [place] [address] annaul follow up documented as of this encounter Visit Diagnoses Not on filedocumented in this encounter Care Teams Trousseau Consultant Relationship Specialty Start Date End Date Broderick Joiner DO [address] [place] [address] PCP - General Internal Medicine 09/21/18 Kitty Valente MD [address] [place] [address] Primary Staff Physician Cardiology 01/31/19 documented as of this encounter
--- OUTSIDE RECORDS SUMMARY | 2025-08-08 11:01 | XMS_ITS | Clinical Summary ---
Author Organization [facility] Address [address] [place] [address] Care Team Providers Care Installation And Service Technician Name Role Phone Broderick Joiner Primary Care Provider [phone] Kitty Valente MD Unavailable Un available Allergies [...] Pseudo CARD EPS MAIN Pseudo Department Only [facility]95 Kitty Valente MD 07/18/2025 10:00 AM EDT Office Visit Neurology [address] [place] [phone] Ashley Tran MD Intractable 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 aura and without status migrainosus (Primary Dx) 07/12/2025 Travel 06/22/2025 Refill Neurology [address] [phone] Lauren Otero APRN.MANAGER GENERAL Refill Request 05/21/2025 8:00 AM EDT Office Visit Neurology [address] [place] [address] Elian Jones DO Chronic pain syndrome (Primary [...] is lower risk 4 09/08/2023 Data from: https://www.neighborhoodatlas.medicine.[facility].edu/. Last address used for calculation [address] 09/08/2023 Comments No Sex and [...] 10/30/2025 10:30 AM EST Office Visit Neurology [address] [place] [address] [place] [address] [place] [address] Botox 01/09/2026 11:00 AM EST Office Visit Neurology [address] [place] [phone] Ross Villar MD, PhD [address] [place] [address] annaul follow up Health Maintenance Due Date [...] Valente MD Medical Devices Implanted Type Area Inspector Boiler Device Identifier Shelf Expiration Date Model / Serial / Lot [id number] Capsurefix Novus [id number] Implanted:06/2015 (Quantity not on file) Lead [employer] 5076 CAPSUREFIX NOVUS / [id number] / [id number] Capsurefix Novus [id number] Implanted:06/2015 (Quantity not on file) Lead [employer] 5076 CAPSUREFIX NOVUS / [id number] / Pacemaker-A2d r01 Advisa [id number] Implanted:06/2015 (Quantity not on file) Pacemaker [employer] A2DR01 Advisa DR COBOS / [id number] / Plate Bn 12mm Cmf Ti 2 H Lp - [id number] Implanted:Qty : 3 on 08/16/2015 at [facility] Plate STRY-HOWM CRANIOMAXILLOFACIAL [id number] / / Pin Crss Sd Scr 1.5x4mm - [id number] Implanted:Qty : 6 on 08/16/2015 at [facility] Screw STRY-HOWM CRANIOMAXILLOFACIAL [id number] / / Procedures Procedure Name Priority Date/Time Associated Diagnosis Comments REM INTERROG PM/LDLS PM <90 D PHYS/QHP Routine 07/25/2025 2:11 PM EDT COMPREHENSIVE METABOLIC PANEL Routine 06/29/2024 1:57 PM EDT Focal epilepsy with impairment of consciousness, intractable (HCC) from Last 3 Months or Most Recently Relevant to Health Maintenance Results * CARDIAC IMPLANTABLE DEVICE CHECK REMOTE (07/25/2025 2:11 PM EDT) Date Time Interrogation Session [id number] MURJ CARDIAC Type Interrogation Session Remote MURJ CARDIAC Implantable Pulse Generator Inspector Boiler Medtronic MURJ CARDIAC Implantable Pulse Generator Type Pacemaker MURJ CARDIAC Implantable Pulse Generator Model Advisa DR COBOS A2DR01 MURJ CARDIAC Implantable Pulse Generator Serial Number [id number] MURJ CARDIAC Implantable Pulse Generator Implant Date 20150522 MURJ CARDIAC Battery Remaining Longevity 7.0 MURJ CARDIAC Battery Voltage 2.870 MURJ CARDIAC Battery RECREATION LEADER Trigger 2.830 MURJ CARDIAC Battery Status OK MURJ CARDIAC Godfrey Statistic RA Percent Paced 99.95 MURJ CARDIAC Godfrey Statistic RV Percent Paced 0.03 MURJ CARDIAC Atrial Tachy Statistic AT/AF [place] Percent 0.00 MURJ CARDIAC Lead Channel Sensing Intrinsic Amplitude 1.750 MURJ CARDIAC Lead Channel Setting Sensing Sensitivity 0.30 MURJ CARDIAC Lead Channel Impedance Value 399 MURJ CARDIAC Lead Channel Pacing Threshold Amplitude 0.500 MURJ CARDIAC Lead Channel Pacing Threshold Pulse Width 0.4 MURJ CARDIAC Lead Channel Measurements Date and Time 2025-07-25 MURJ CARDIAC Lead Channel Setting Pacing Amplitude 1.500 MURJ CARDIAC Lead Channel Setting Pacing Pulse Width 0.4 MURJ CARDIAC Lead Channel Sensing Intrinsic Amplitude 11.125 MURJ CARDIAC Lead Channel Setting Sensing Sensitivity 0.90 MURJ CARDIAC Lead Channel Impedance Value 532 MURJ CARDIAC Lead Channel Pacing Threshold Amplitude 0.875 MURJ CARDIAC Lead Channel Pacing Threshold Pulse Width 0.4 MURJ CARDIAC Lead Channel Measurements Date and Time 2025-07-25 MURJ CARDIAC Lead Channel Setting Pacing Amplitude [...] Zone ID 6 MUR CARDIAC Implantable Lead Inspector Boiler Medtronic MURJ CARDIAC Implantable Lead Model 5076 CapSureFix Novus MURJ CARDIAC Implantable Lead Location Right Atrium MURJ CARDIAC Implantable Lead Connection Status Connected MUR CARDIAC Implantable Lead Serial Number [id number] [facility] Im[facility] Lead [facility]plant Date 20150522 [facility] CARDIAC Implantable Lead Inspector Boiler Medtronic MURJ CARDIAC Implantable Lead Model 5076 CapSureFix Novus [facility] Implantable Lead Location Right Ventricle MURJ CARDIAC Implantable Lead Connection Status Connected [facility] CARDIAC Implantable Lead Serial Number [id number] [facility] CARDIAC Implantable Lead Implant Date 20150522 [facility] CARDIAC 07/25/2025 2:11 PM EDT Narrative MURJ CARDIAC - 08/04/2025 7:03 PM EDT Normal Remote: No Events * Normal Device Function * Alerts or events: None * Battery: OK, 7 mos * Sensing, impedance and thresholds reviewed * Programmed parameters reviewed * Presenting rhythm: AP/VS * Heart Rate Histograms reviewed * No significant changes noted * AP 99.9%, PRACTICE MANAGEMENT CONSULTANT <0.1%. NOTE TO PROVIDERS: Cardiac Implanted Devices Flowsheets contain detailed Programming and Evaluation data. Full Docket/PDF found below under Scanned Documents . Procedure Note Kitty Valente MD - 08/04/2025 Normal Remote: No Events * Normal Device Function * Alerts or events: None * Battery: OK, 7 mos * Sensing, impedance and thresholds reviewed * Programmed parameters reviewed * Presenting rhythm: AP/VS * Heart Rate Histograms reviewed * No significant changes noted * AP 99.9%, PRACTICE MANAGEMENT CONSULTANT <0.1%. NOTE TO PROVIDERS: Cardiac Implanted Devices Flowsheets contain detailedProgramming and Evaluation data. Full Docket/PDF found below under Scanned Documents . Kitty Vidal MD CARDIOLOGY Fin al Result MURJ CARDIAC * (ABNORMAL) COMPREHENSIVE METABOLIC PANEL (06/29/2024 1:57 PM EDT) [facility] Protein, Total 7.0 6.3 - 8.0 g/dL 06/29/2024 2:36 PM EDT [facility] Albumin 4.3 3.9 - 4.9 g/dL 06/29/2024 2:36 PM EDT [facility] Calcium, Total 8.8 8.5 - 10.2 mg/dL 06/29/2024 2:36 PM EDT [facility] Bilirubin, Total 0.4 0.2 - 1.3 mg/dL 06/29/2024 2:36 PM EDT [facility] Alkaline Phosphatase 170(H) 34 - 123 U/L 06/29/2024 2:36 PM EDT [facility] AST 22 13 - 35 U/L 06/29/2024 2:36 PM EDT [facility] ALT 28 7 - 38 U/L 06/29/2024 2:36 PM EDT [facility] Glucose 111(H) 74 - 99 mg/dL [facility]/29[facility]24 [facility] Comment: The [place] Diabetes Association (ADA) provides guidance for cutoff [...] Standards of Medical Care in Diabetes 2016, [place] Diabetes Association. Diabetes Care. 2016.39(Suppl 1). BUN 34(H) 7 - 21 mg/dL 06/29/2024 2:36 PM EDT [facility] Creatinine 1.73(H) 0.58 - 0.96 mg/dL 06/29/2024 2:36 PM EDT [facility] Sodium 141 136 - 144 mmol/L 06/29/2024 2:36 PM EDT [facility] Potassium 5.1 3.7 - 5.1 mmol/L 06/29/2024 2:36 PM EDT [facility] Chloride 109(H) 98 - 107 mmol/L 06/29/2024 2:36 PM EDT [facility] CO2 24 22 - 30 mmol/L 06/29/2024 2:36 PM EDT [facility] Anion Gap 8 8 - 15 mmol/L 06/29/2024 2:36 PM EDT [facility] Estimated Glomerular Filtration Rate 31(L) >=60 mL/min/1. 73m 06/29/2024 2:36 PM EDT [facility] Comment:Estimated Glomerular Filtration Rate (eGFR) is [...] Villar MD, PhD LABORATORY Final Re sult [facility] [address] from Last 3 Months or Most Recently Relevant to Health Maintenance Insurance [employer] Care Teams Installation And Service Technician Relationship Specialty Start Date End Date Broderick Joiner DO [address] [place] [address] PCP - General Internal Medicine 09/21/18 Kitty Valente MD [address] [phone] Primary Staff Physician Cardiology 01/31/19
--- OUTSIDE RECORDS SUMMARY | 2025-08-08 11:01 | XMS_ITS ---
Author Organization [facility] Address [address] [place] [address] Care Team Providers Care Care Rep Name Role Phone Broderick Joiner Primary Care Provider [phone] Kitty Valente MD Unavailable Un available Active [...]
--- OUTSIDE RECORDS SUMMARY | 2025-08-08 11:01 | XMS_ITS | Encounter Summary ---
Author Organization [facility] Address [address] [place] [address] Care Team Providers Care Aircraft Sales Representative Name Role Phone RhysBroderick Primary Care Provider [phone] Kitty Valente MD Unavailable Un available Source Comments In the event this information is protected by the Federal Confidentiality of Alcohol and Drug AbusePatient Records regulations: The Federal rules restrict any use of the information to criminally investigate or prosecute any alcohol or drug abuse patient.[facility] Encounter Details Date Type Department Care Team (Late st Contact Info) Description 11/03/2024 Patient Msg Cardiology [address] [phone] Provider, Ccf Remote Monitoring Social History Tobacco [...] is lower risk 4 09/08/2023 Data from: https://www.neighborhoodatlas.medicine.[facility].edu/. Last address used for calculation [id number] [...] 10/30/2025 10:30 AM EST Office Visit Neurology [address] [place] [address] [place] [address] [address]/[facility] [place] [address] Botox 01/09/2026 11:00 AM EST Office Visit Neurology [address] [facility] [place] [phone] Ross Villar MD, PhD [address] [place] [address] annaul follow up documented as of this encounter Goals Goal Patient Goal Type Associated Problems Recent Progress Patient-Stated? Author Blood Pressure < 130/80 Blood Pressure 124/74( 025 9:45 AM EDT) No Kitty Valente MD documented as of this encounter Visit Diagnoses Not on filedocumented in this encounter Care Teams Aircraft Sales Representative Relationship Specialty Start Date End Date Broderick Joiner DO [address] [place] [address] PCP - General Internal Medicine 09/21/18 Kitty Valente MD [address] [place] [address] Primary Staff Physician Cardiology 01/31/19 documented as of this encounter
--- OUTSIDE RECORDS SUMMARY | 2025-08-08 11:01 | XMS_ITS | Clinical Summary ---
Author Organization [facility] Address [id number] [address] [place] [address] Care Team Providers Care Unit Controller Name Role Phone Shashi Lisa DO Primary [...] Medical Devices Not on file Insurance MEDICARE [facility] Care Teams Unit Controller Relationship Specialty Start Date End Date Shashi Lisa DO PCP - General 12/17/17
--- OUTSIDE RECORDS SUMMARY | 2025-08-08 11:01 | XMS_ITS | Encounter Summary ---
Author Organization [facility] Address [address] [place] [address] Care Team Providers Care Rocket Engine Tester Name Role Phone Broderick Joiner DO Primary Care Provider [phone] Kitty Valente MD Unavailable Un available Source Comments In the event this information is protected by the Federal Confidentiality of Alcohol and Drug AbusePatient Records regulations: The Federal rules restrict any use of the information to criminally investigate or prosecute any alcohol or drug abuse patient.[facility] Encounter Details Date Type Department Care Team (Late st Contact Info) Description 07/25/2025 Orders Only Pseudo CARD [place] [address] [place] [address] [place], [place] [phone] Social History Tobacco Use Types Packs/Day Years [...] is lower risk 4 09/08/2023 Data from: https://www.neighborhoodatlas.[facility]/. Last address used for calculation [address] 09/08/2023 Comments No Sex and [...] 10/30/2025 10:30 AM EST Office Visit Neurology [address] [place] [address] [place] [address]/[facility] [place] [address] Botox 01/09/2026 11:00 AM EST Office Visit Neurology [address] [place] [phone] Ross Villar MD, PhD [address] [place] [address] annaul follow up documented as of this encounter Goals Goal Patient Goal Type Associated Problems Recent Progress Patient-Stated? Author Blood Pressure < 130/80 Blood Pressure 124/74( 025 9:45 AM EDT) No Kitty Valente MD documented as of this encounter Procedures Procedure Name Priority Date/Time Associated Diagnosis Comments REM INTERROG PM/LDLS PM <90 D PHYS/QHP Routine 07/25/2025 2:11 PM EDT documented in this encounter Results * CARDIAC IMPLANTABLE DEVICE CHECK REMOTE (07/25/2025 2:11 PM EDT) Date Time Interrogation Session [id number] MURJ CARDIAC Type Interrogation Session Remote MURJ CARDIAC Implantable Pulse Generator Sales Marketing Manager Medtronic MURJ CARDIAC Implantable Pulse Generator Type Pacemaker MURJ CARDIAC Implantable Pulse Generator Model Advisa DR COBOS A2DR01 MURJ CARDIAC Implantable Pulse Generator Serial Number [id number] MURJ CARDIAC Implantable Pulse Generator Implant Date 20150522 MURJ CARDIAC Battery Remaining Longevity 7.0 MURJ CARDIAC Battery Voltage 2.870 MURJ CARDIAC Battery AIRPORT RAMP SUPERVISOR Trigger 2.830 MURJ CARDIAC Battery Status OK MURJ CARDIAC Godfrey Statistic RA Percent Paced 99.95 MURJ CARDIAC Godfrey Statistic RV Percent Paced 0.03 MURJ CARDIAC Atrial Tachy Statistic AT/AF [place] Percent 0.00 MURJ CARDIAC Lead Channel Sensing [...] Setting Maximum Tracking Rate 130 MURJ CARDIAC Ogdfrey Setting Maximum Sensor Rate 130 MURJ CARDIAC [...] Status ENABLED MURJ CARDIAC Zone ID 6 [facility] CARDIAC Implantable Lead Sales Marketing Manager Medtronic [facility] CARDIAC Implantable Lead Model 5076 CapSureFix Novus [facility] CARDIAC Implantable Lead Location Right Atrium [facility] CARDIAC Implantable Lead Connection Status Connected [facility] CARDIAC Implantable Lead Serial Number [id number] [facility] CARDIAC Implantable Lead Implant Date 20150522 [facility]ARDIAC Implantable Lead Sales Marketing Manager Medtronic [facility] Im[facility]able Lead Model 5076 CapSureFix Novus [facility] Implantable Lead Location Right Ventricle [facility] CARDIAC Implantable Lead Connection Status Connected [facility] CARDI[facility] Implantable Lead Serial Number [id number] [facility] Implantable Lead Implant Date 20150522 [facility] CARDI[facility] 07/25/2025 2:11 PM EDT Narrative [facility] - 08/04/2025 7:03 PM EDT Normal Remote: No Events * Normal Device Function * Alerts or events: None * Battery: OK, 7 mos * Sensing, impedance and thresholds reviewed * Programmed parameters reviewed * Presenting rhythm: AP/VS * Heart Rate Histograms reviewed * No significant changes noted * AP 99.9%, MINING TECHNICIAN <0.1%. NOTE TO PROVIDERS: Cardiac Implanted Devices [...] No significant changes noted * AP 99.9%, MINING TECHNICIAN <0.1%. NOTE TO PROVIDERS: Cardiac Implanted Devices Flowsheets contain detailedProgramming and Evaluation data. Full Docket/PDF found below under Scanned Documents . us Kitty Vidal MD CARDIOLOGY Fin al Result MURJ CARDIAC documented in this encounter Visit Diagnoses Not on filedocumented in this encounter Care Teams Rocket Engine Tester Relationship Specialty Start Date End Date Broderick Joiner DO [address] [place] [address] PCP - General Internal Medicine 09/21/18 Kitty Valente MD [address] [place] [address] Primary Staff Physician Cardiology 01/31/19 documented as of this encounter
--- OUTSIDE RECORDS SUMMARY | 2025-08-08 11:01 | XMS_ITS | Encounter Summary ---
Author Organization [facility] Address [address] [place] [address] Care Team Providers Care Netbackup Engineer Name Role Phone Broderick Joiner DO Primary Care Provider [phone] Encounter Details Date Type Department Care Team (Late st Contact Info) Description 05/30/2024 External Result Encounter [facility] External Department Unsolicited Priyank Mcfadden, PA [address] [place] [address] Social History Tobacco Use Types [...] Rico John M.D.05/30/2024 10:27 AM Dictation Location: [facility] Transcribed By: [facility] 05/30/24 1027 Dictated By: Rico John DO 05/30/24 1006 Signed By: <Electronically signed by Rico John DO in OV> 05/30/24 1027 Narrative 05/30/2024 10:29 AM EDT [facility] [place] [address] [place] [address] MRI Report Signed Patient: Cassi Rodrigez MR#: [id number] 8 : 1950 Acct:[id number] Age/Sex: 74 / F ADM Date: 05/30/24 [...] con Procedure Note Radiology, Radiologist, - 05/30/2024 [facility] [place] [address] [place] [address] MRI Report Signed Patient: Cassi RodrigezMR#: [id number] 8 : 1950Acct:[id number] Age/Sex: 74 / FADM Date: 05/30/24 Loc: [...] Rico John M.D.05/30/2024 10:27 AM Dictation Location: [employer] Transcribed By: [facility] 05/30/24 1027 Dictated By: Rico John DO 05/30/24 1006 Signed By: <Electronically signed by Rico John DO in OV> 05/30/24 1027 us [facility] IMG MRI PROCEDURES Final Resu lt documented in this encounter Visit Diagnoses Not on filedocumented in this encounter Care Teams Netbackup Engineer Relationship Specialty Start Date End Date Broderick Joiner DO PCP - General Internal Medicine 05/03/24 documented as of this encounter
--- OUTSIDE RECORDS SUMMARY | 2025-08-08 11:01 | XMS_ITS | Encounter Summary ---
Author Organization [facility] Address [address] [place] [address] Care Team Providers Care Renewable Energy Engineer Name Role Phone Broderick Joiner Primary Care Provider Kitty Valente MD Unavailable Un available Source Comments In the event this information is protected by the Federal Confidentiality of Alcohol and Drug AbusePatient Records regulations: The Federal rules restrict any use of the information to criminally investigate or prosecute any alcohol or drug abuse patient.[facility] Encounter Details Date Type Department Care Team (Late st Contact Info) Description 01/04/2025 Patient Msg Neurology [address] [phone] Ross Villar MD, PhD [address] [place] [address] ACTION REQUIRED: Please complete your [...] lower risk 4 09/08/2023 Data from: https://www.neighborhoodatlas.[facility]/. Last address used for calculation [address] 09/08/2023 Comments No Sex and [...] 10/30/2025 10:30 AM EST Office Visit Neurology [address] [place] [address] [place] [address] [address]/[facility]-[address] [place] [address] Botox 01/09/2026 11:00 AM EST Office Visit Neurology [address] [place] [address] Ross Villar MD, PhD [address] [place] [address] annaul follow up documented as of this encounter Goals Goal Patient Goal Type Associated Problems Recent Progress Patient-Stated? Author Blood Pressure < 130/80 Blood Pressure 124/74( 025 9:45 AM EDT) No Kitty Valente MD documented as of this encounter Visit Diagnoses Not on filedocumented in this encounter Care Teams Renewable Energy Engineer Relationship Specialty Start Date End Date Broderick Joiner DO [address] [place] [address] PCP - General Internal Medicine 09/21/18 Kitty Valente MD [address] [place] [address] Primary Staff Physician Cardiology 01/31/19 documented as of this encounter
--- OUTSIDE RECORDS SUMMARY | 2025-08-08 11:01 | XMS_ITS | Encounter Summary ---
Author Organization [facility] Address [address] [place] [address] Care Team Providers Care Furniture Assembly Supervisor Name Role Phone RhysBroderick Primary Care Provider [phone] Kitty aVlente MD Unavailable Un available Source Comments In [...] Info) Description 08/26/2022 Patient Msg Cardiology [address] [phone] ProviderLorrie missed remote 08/21/22 Social History Tobacco [...] N ot on file 10/20/2020 Data from: https://www.neighborhoodatlas.medicine.[facility]/. Last address used for calculation [...] 10/30/2025 10:30 AM EST Office Visit Neurology [address] [place] [address] [place] [address] [address]/Eb-[address] [place] [address] Botox 01/09/2026 11:00 AM EST Office Visit Neurology [address] [place] [address] Ross Villar MD, PhD [address] [place] [address] annaul follow up documented as of this encounter Visit Diagnoses Not on filedocumented in this encounter Care Teams Furniture Assembly Supervisor Relationship Specialty Start Date End Date Broderick Joiner DO [address] [place] [address] PCP - General Internal Medicine 09/21/18 Kitty Valente MD [address] [place] [address] Primary Staff Physician Cardiology 01/31/19 documented as of this encounter
--- OUTSIDE RECORDS SUMMARY | 2025-08-08 11:01 | XMS_ITS | Encounter Summary ---
Author Organization [facility] Address [address] [place] [address] Care Team Providers Care Toe Former Name Role Phone MorenaLeo snowGerardo Primary Care Provider [phone] Shashi Lisa DO Primary Care Provider Broderick Joiner DO Primary Care Provider [phone] Kitty Valente MD Unavailable Un available Kitty Valente MD Unavailable Un available Source Comments In the event this information is protected by the Federal Confidentiality of Alcohol and Drug AbusePatient Records regulations: The Federal rules restrict any use of the information to criminally investigate or prosecute any alcohol or drug abuse patient.[facility] Encounter Details Date Type Department Care Team (Late st Contact Info) Description 10/06/2015 Patient Msg Medical Records [facility] [place] [address] Provider, Ccf Levetiracetam (Keppra) level Social History [...] 10/30/2025 10:30 AM EST Office Visit Neurology [address] [place] [address] [place] [address] [address]/FVEb-[address] [place] [address] Botox 01/09/2026 11:00 AM EST Office Visit Neurology [address] [place] [address] Ross Villar MD, PhD [address] [place] [address] annaul follow up documented as of this encounter Visit Diagnoses Not on filedocumented in this encounter Care Teams Toe Former Relationship Specialty Start Date End Date Leo Fierro [address] [place] [address] PCP - General Family Medicine 01/23/11 11/14/16 Shashi Lisa DO [address] [place] [address] PCP - General Family Medicine 11/15/16 09/20/18 Broderick Joiner DO [address] [place] [address] PCP - General Internal Medicine 09/21/18 Kitty Valente MD [address] [place] [address] Primary Staff Physician Cardiology 01/31/1901/31 Kitty Valente MD [address] [place] [address] Primary Staff Physician Cardiology 01/31/19 documented as of this encounter
--- OUTSIDE RECORDS SUMMARY | 2025-08-08 11:01 | XMS_ITS | Encounter Summary ---
Author Organization [facility] Address [address] [place] [address] Care Team Providers Care Lead Ingot Molder Name Role Phone Broderick Joiner DO Primary Care Provider [phone] Kitty Valente MD Unavailable Un available Source Comments In the event this information is protected by the Federal Confidentiality of Alcohol and Drug AbusePatient Records regulations: The Federal rules restrict any use of the information to criminally investigate or prosecute any alcohol or drug abuse patient.[facility] Reason for Visit * Reason Comments patient update Encounter Details Date Type Department Care Team (Late st Contact Info) Description 11/30/2024 Telephone Neurology [address] [place] [address] [place] [address] [address] [place] [phone] patient update Social History Tobacco Use Types [...] is lower risk 4 09/08/2023 Data from: https://www.neighborhoodatlas.[facility]/. Last address used for calculation [address] [...] Salvador RN - 12/04/2024 2:34 PM EST [place] is insurance listed as primary in chart. [...] 10/30/2025 10:30 AM EST Office Visit Neurology [address] [place] [address] [place] [address] [address]/FVE[facility]-[address] [place] [address] Botox 01/09/2026 11:00 AM EST Office Visit Neurology [address] [facility] [place] [address] Ross Villar MD, PhD [address] [place], [place] 2029[address] annaul follow up documented as of this encounter Goals Goal Patient Goal Type Associated Problems Recent Progress Patient-Stated? Author Blood Pressure < 130/80 Blood Pressure 124/74( 025 9:45 AM EDT) No Kitty Valente MD documented as of this encounter Visit Diagnoses Not on filedocumented in this encounter Care Teams Lead Ingot Molder Relationship Specialty Start Date End Date Broderick Joiner DO [address] [place] [address] PCP - General Internal Medicine 09/21/18 Kitty Valente MD [address] [facility] [place] [place] [address] Primary Staff Physician Cardiology 01/31/19 documented as of this encounter
--- OUTSIDE RECORDS SUMMARY | 2025-08-08 11:01 | XMS_ITS | Encounter Summary ---
Author Organization [facility] Address [address] [place] [address] Care Team Providers Care Cable Tool Driller Name Role Phone RhysBroderick Primary Care Provider [phone] Kitty Valente MD Unavailable Un available Source Comments In the event this information is protected by the Federal Confidentiality of Alcohol and Drug AbusePatient Records regulations: The Federal rules restrict any use of the information to criminally investigate or prosecute any alcohol or drug abuse patient.[facility] Encounter Details Date Type Department Care Team (Late st Contact Info) Description 06/02/2021 Patient Msg Cardiology [address] [phone] ProviderLorrie Missed remote transmission Social History Tobacco [...] 10/30/2025 10:30 AM EST Office Visit Neurology [address] [place] [address] [place] [address] [address]/[facility]-[address] [place] [address] Botox 01/09/2026 11:00 AM EST Office Visit Neurology [address] [facility] [place] [place] [address] Ross Villar MD, PhD [address] [place] [address] annaul follow up documented as of this encounter Visit Diagnoses Not on filedocumented in this encounter Care Teams Cable Tool Driller Relationship Specialty Start Date End Date Broderick Joiner DO [address] [place] [address] PCP - General Internal Medicine 09/21/18 Kitty Valente MD [address] [place] [address] Primary Staff Physician Cardiology 01/31/19 documented as of this encounter
--- OUTSIDE RECORDS SUMMARY | 2025-08-08 11:01 | XMS_ITS | Encounter Summary ---
Author Organization [facility] Address [address] [place] [address] Care Team Providers Care Search Planner Name Role Phone Leo Fierro Primary Care Provider [phone] Shashi Lisa DO Primary Care Provider Broderick Joiner DO Primary Care Provider [phone] Kitty Valente MD Unavailable Un available Kitty Valente MD Unavailable Un available Source Comments In the event this information is protected by the Federal Confidentiality of Alcohol and Drug AbusePatient Records regulations: The Federal rules restrict any use of the information to criminally investigate or prosecute any alcohol or drug abuse patient.[facility] Encounter Details Date Type Department Care Team (Late st Contact Info) Description 02/19/2011 [facility] H071 [address] [phone] [place] [address] [place] [phone] Social History Tobacco Use Types Packs/Day Years [...] 10/30/2025 10:30 AM EST Office Visit Neurology [address] [place] [address] [place] [address] [address]/FVE[facility]-[address] [place] [address] Botox 01/09/2026 11:00 AM EST Office Visit Neurology [address] [address] Ross Villar MD, PhD [address] [place], [place] [address] annaul follow up documented as of this encounter Visit Diagnoses Not on filedocumented in this encounter Care Teams Search Planner Relationship Specialty Start Date End Date Leo Fierro [address] [place] [address] [place] [address] PCP - General Family Medicine 01/23/11 11/14/16 Shashi Lisa DO [address] [place] [address] PCP - General Family Medicine 11/15/16 09/20/18 Broderick Joiner DO [address] [place] [address] PCP - General Internal Medicine 09/21/18 Kitty Valente MD [address] [place] [address] Primary Staff Physician Cardiology 01/31/1901/31 Kitty Valente MD [address] [place] [address] Primary Staff Physician Cardiology 01/31/19 documented as of this encounter
--- OUTSIDE RECORDS SUMMARY | 2025-08-08 11:01 | XMS_ITS | Clinical Summary ---
Author Organization [facility] Address [address] [place] [address] Care Team Providers Care Website Programmer Name Role Phone Broderick Jioner Primary Care Provider [phone] Allergies Active Allergy Reactions Criticality Noted Date [...] 25 Active ergocalciferol (Vitamin D2) 1.25 MG (32899 UT) capsule TAKE 1 CAPSULE BY MOUTH [...] 07/30/2022, Additional history exists Insurance Care Teams Website Programmer Relationship Specialty Start Date End Date Broderick Joiner DO PCP - General Internal Medicine 05/03/24
--- OUTSIDE RECORDS SUMMARY | 2025-08-08 11:01 | XMS_ITS | Encounter Summary ---
Author Organization [facility] Address [address] [place] [address] Care Team Providers Care Software Engineer Web Services Name Role Phone RhysBroderick Aldair MCKEON Primary Care Provider [phone] Kitty Valente MD Unavailable Un available Source [...] Info) Description 12/08/2023 Patient Msg Neurology [address] [phone] Provider, Ccf refill Social History Tobacco Use [...] risk 4 09/08/2023 Data from: https://www.neighborhoodatlas.medicine.[facility].edu/. Last address used for calculation [address] [...] 10/30/2025 10:30 AM EST Office Visit Neurology [address] [place] [address] [place] [address] [address]/[facility]-[address] [place] [address] Botox 01/09/2026 11:00 AM EST Office Visit Neurology [address] [facility] [place] [address] Ross Villar MD, PhD [address] [place] [address] annaul follow up documented as of this encounter Visit Diagnoses Not on filedocumented in this encounter Care Teams Software Engineer Web Services Relationship Specialty Start Date End Date Broderick Joiner DO [address] [place] [address] PCP - General Internal Medicine 09/21/18 Kitty Valente MD [address] [place] [address] Primary Staff Physician Cardiology 01/31/19 documented as of this encounter
--- OUTSIDE RECORDS SUMMARY | 2025-08-08 11:01 | XMS_ITS | Encounter Summary ---
Author Organization [facility] Address [address] [place] [address] Care Team Providers Care Energy Conservation Specialist Name Role Phone Broderick Joiner DO Primary Care Provider [phone] Kitty Valente MD Unavailable Un available Source Comments In the event this information is protected by the Federal Confidentiality of Alcohol and Drug AbusePatient Records regulations: The Federal rules restrict any use of the information to criminally investigate or prosecute any alcohol or drug abuse patient.[facility] Encounter Details Date Type Department Care Team (Late st Contact Info) Description 01/03/2025 Patient Msg Neurology [address] [place] [address] [place] [address] [address]/FVE[facility] [place] [address] Appointment Request Social History Tobacco Use Types [...] is lower risk 4 09/08/2023 Data from: https://www.neighborhoodatlas.[facility]/. Last address used for calculation [...] Assessment Author Yes 08/19/2015 11:02 AM Vita Eliznodo (Rn) (Hist), RN documented as of this [...] 10/30/2025 10:30 AM EST Office Visit Neurology [address] [place] [address] [place] [address] [address]/[facility]-[address] [place] [address] Botox 01/09/2026 11:00 AM EST Office Visit Neurology [address] [place] [address] Ross Villar MD, PhD [address] [place] [address] annaul follow up documented as of this encounter Goals Goal Patient Goal Type Associated Problems Recent Progress Patient-Stated? Author Blood Pressure < 130/80 Blood Pressure 124/74( 025 9:45 AM EDT) No Kitty Valente MD documented as of this encounter Visit Diagnoses Not on filedocumented in this encounter Care Teams Energy Conservation Specialist Relationship Specialty Start Date End Date Broderick Joiner DO [address] [place] [address] PCP - General Internal Medicine 09/21/18 Kitty Valente MD [address] [place] [address] Primary Staff Physician Cardiology 01/31/19 documented as of this encounter
--- OUTSIDE RECORDS SUMMARY | 2025-08-08 11:01 | XMS_ITS | Encounter Summary ---
Author Organization [facility] Address [address] [place] [address] Care Team Providers Care Wellness Rn Name Role Phone RhysBroderick Primary Care Provider [phone] Kitty Valente MD Unavailable Un available Source Comments In the event this information is protected by the Federal Confidentiality of Alcohol and Drug AbusePatient Records regulations: The Federal rules restrict any use of the information to criminally investigate or prosecute any alcohol or drug abuse patient.[facility] Encounter Details Date Type Department Care Team (Late st Contact Info) Description 09/15/2021 Patient Msg Cardiology [address] [phone] ProviderLorrie missed remote transmission Social History Tobacco [...] 10/30/2025 10:30 AM EST Office Visit Neurology [address] [place] [address] [place] [address] [address]/[facility]-[address] [place] [address] Botox 01/09/2026 11:00 AM EST Office Visit Neurology [address] [place] [address] Ross Villar MD, PhD [address] [place] [address] annaul follow up documented as of this encounter Visit Diagnoses Not on filedocumented in this encounter Care Teams Wellness Rn Relationship Specialty Start Date End Date Broderick Joiner DO [address] [place] [address] PCP - General Internal Medicine 09/21/18 Kitty Valente MD [address] [place] [address] Primary Staff Physician Cardiology 01/31/19 documented as of this encounter
--- OUTSIDE RECORDS SUMMARY | 2025-08-08 11:01 | XMS_ITS | Encounter Summary ---
Author Organization [facility] Address [address] [place] [address] Care Team Providers Care Supervisor Of Instruction Name Role Phone RhysBroderick Aldair MCKEON Primary Care Provider [phone] Kitty Valente MD Unavailable Un available Source Comments In the event this information is protected by the Federal Confidentiality of Alcohol and Drug AbusePatient Records regulations: The Federal rules restrict any use of the information to criminally investigate or prosecute any alcohol or drug abuse patient.[facility] Encounter Details Date Type Department Care Team (Late st Contact Info) Description 12/13/2023 Patient Msg Neurology [address] [phone] Provider, Ccf Refill Social History Tobacco Use [...] is lower risk 4 09/08/2023 Data from: https://www.neighborhoodatlas.medicine.[facility].edu/. Last address used for calculation [address] [...] 10/30/2025 10:30 AM EST Office Visit Neurology [address] [place] [address] [place] [address] [address]/[facility]-[address] [place] [address] Botox 01/09/2026 11:00 AM EST Office Visit Neurology [address] [facility] [place] [address] Ross Villar MD, PhD [address] [place] [address] annaul follow up documented as of this encounter Visit Diagnoses Not on filedocumented in this encounter Care Teams Supervisor Of Instruction Relationship Specialty Start Date End Date Broderick Joiner DO [address] [place] [address] PCP - General Internal Medicine 09/21/18 Kitty Valente MD [address] [place] [address] Primary Staff Physician Cardiology 01/31/19 documented as of this encounter
--- OUTSIDE RECORDS SUMMARY | 2025-08-08 11:01 | XMS_ITS | Encounter Summary ---
Author Organization [facility] Address [address] [place] [address] Phone Care Team Providers Care Safety Intern Name Role Phone Unavailable Primary Care Provider Unavailabl e Encounter Details Date Type Department Care Team (Late st Contact Info) Description 04/29/2023 Orders Only [facility] [address] [place] [address] Conversion, Onbase Social History Tobacco Use Types [...]
--- OUTSIDE RECORDS SUMMARY | 2025-08-08 11:02 | XMS_ITS | Encounter Summary ---
Author Organization [facility] Address [address] [place] [address] Care Team Providers Care Hand Launderer Name Role Phone Broderick Joiner DO Primary Care Provider [phone] Kitty Valente MD Unavailable Un available Kitty Valente MD Unavailable Un available Source Comments In the event this information is protected by the Federal Confidentiality of Alcohol and Drug AbusePatient Records regulations: The Federal rules restrict any use of the information to criminally investigate or prosecute any alcohol or drug abuse patient.[facility] Encounter Details Date Type Department Care Team (Late st Contact Info) Description 08/24/2019 Patient Msg Cardiology [address] [place] [address] Provider, Ccf Appointment Social History Tobacco Use [...] 10/30/2025 10:30 AM EST Office Visit Neurology [address] [place] [address] [place] [address] [address]/E[address] [place] [address] Botox 01/09/2026 11:00 AM EST Office Visit Neurology [address] [place] [address] Ross Villar MD, PhD [address] [place], [place] [phone] annaul follow up documented as of this encounter Visit Diagnoses Not on filedocumented in this encounter Care Teams Hand Launderer Relationship Specialty Start Date End Date Broderick Joiner DO [address] [place] [address] PCP - General Internal Medicine 09/21/18 Kitty Valente MD [address] [place] [address] Primary Staff Physician Cardiology 01/31/1901/31 Kitty Valente MD [address] [place] [address] Primary Staff Physician Cardiology 01/31/19 documented as of this encounter
--- OUTSIDE RECORDS SUMMARY | 2025-08-08 11:02 | XMS_ITS | Patient Health Record ---
Author Organization [facility] Address [address] [facility] [address] [place] [address] Care Team Providers Care Commissary Superintendent Name Role Phone Shashi De Souza Primary Care Provider [phone] Reason For Referral No Information Social History Social History Tobacco Use: Social Info Question Answer Notes Tobacco Use/Smoking How long has it been since you last smoked? > 10 years Problems Problem Type SNOMED Code ICD Code Onset Dates Problem Status W/U Status Risk Notes Problem Spondylolisthesis (835662393) Spondylolisthesis (M43.10) Active confirmed Problem Post-laminectomy syndrome (77491590) Post laminectomy syndrome (M96.1) Active confirmed Problem Post-laminectomy syndrome (07974947) Post laminectomy syndrome (M96.1) Active confirmed Problem Sciatica (74034080) Lumbago of l umbar region with sciatica (M54.40) Active confirmed Problem Neurogenic claudication (644268058) Spinal stenosis, lumbar region with neurogenic claudication (M48.062) Active confirmed Encounters Encounter Location Date Provider Diagnosis [facility] Faisal eD Souza [address] [place] [address] 08/30/2024 Shashi Rhdhara Lumbago of lumbar region with sciatica M54.40 [facility] Faisal De Souza [address] [place] [address] 11/22/2024 Shashi Rhdhara Post laminectomy syndrome M96.1 [facility] Faisal De Souza [address] [place] [address] 01/17/2025 Shashi Rhieneo Post laminectomy syndrome M96.1 [facility] Jose [id number]/Rhiew [address] [facility] [address] [place] [address] 08/24/2024 Shashi Rhiew [facility] [id number]/Rhiew [address] [facility] [address] [place] [address] 08/30/2024 Shashi Pringle [id number]/Rhiew [address] [facility] [address] [place] [address] 09/07/2024 Shashi De Souza Lumbago of lumbar region with sciatica M54.40 Assessments Encounter Date Diagnosis (ICD Code) Assessment Notes Treatment Notes Treatment Clinical Notes Section Notes 08/30/2024 Lumbago of lumbar region with sciatica (ICD-10 - M54.40) NUMBER OF DIAGNOSES AND MANAGEMENT OPTIONS: 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
--- OUTSIDE RECORDS SUMMARY | 2025-08-08 11:02 | XMS_ITS | Clinical Summary ---
Author Organization [facility] Address [address] [place] [address] Phone Care Team Providers Care Refuge Manager Name Role Phone Unavailable Primary Care Provider [...] patient's age to complete this topic Insurance [employer]rip OpTrip
--- OUTSIDE RECORDS SUMMARY | 2025-08-08 11:02 | XMS_ITS | Encounter Summary ---
Author Organization [facility] Address [address] [place] [id number] Care Team Providers Care Cost Manager Name Role Phone MorenaLeo snowGerardo Primary Care Provider + [phone] Shashi Lisa DO Primary Care Provider Broderick Joiner DO Primary Care Provider [phone] Kitty Valente MD Unavailable Un available Kitty Valente MD Unavailable Un available Source Comments In the event this information is protected by the Federal Confidentiality of Alcohol and Drug AbusePatient Records regulations: The Federal rules restrict any use of the information to criminally investigate or prosecute any alcohol or drug abuse patient.[facility] Encounter Details Date Type Department Care Team (Late st Contact Info) Description 04/19/2015 Patient Msg Medical Records [facility] [place] [address] Provider, [facility] Your virtual after visit summary [...] 10/30/2025 10:30 AM EST Office Visit Neurology [address] [place] [address] [place] [address] [id number] [place] [address] Botox 01/09/2026 11:00 AM EST Office Visit Neurology [address] [place] [phone] Ross Villar MD, PhD [address] [place], [place] [id number] annaul follow up documented as of this encounter Visit Diagnoses Not on filedocumented in this encounter Care Teams Cost Manager Relationship Specialty Start Date End Date Leo Fierro [phone] [place] [phone] PCP - General Family Medicine 01/23/11 11/14/16 Shashi Lisa DO [address] [place] [address] PCP - General Family Medicine 11/15/16 09/20/18 Broderick Joiner DO [address] [place] [address] PCP - General Internal Medicine 09/21/18 Kitty Valente MD [address] [place] [address] Primary Staff Physician Cardiology 01/31/1901/31 Kitty Valente MD [address] [place] [address] Primary Staff Physician Cardiology 01/31/19 documented as of this encounter
--- OUTSIDE RECORDS SUMMARY | 2025-08-08 11:13 | XMS_ITS | CCD ---
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 Name Role Phone Bertram Sanders Unavailable Broderick Howard DO Primary Care Provider Pascual Millard MD, Kitty Unavailable Un available Broderick Howard DO Primary Care Provider Pascual Millard MD, Kitty Unavailable Un available Broderick Howard Unavailable FAWWAD, AGUILAR H Admitting Unavailable BALL, DR RSOAS Primary Care Unavailable FAWWAD, AGUILAR H Attending Unavailable FAWWAD, AGUILAR H Attending Unavailable FAWWAD, AGUILAR H Admitting Unavailable BALL, DR ROSAS Primary Care Unavailable FAWWAD, AGUILAR H Admitting Unavailable BALL, DR ROSAS Primary Care Unavailable FAWWAD, AGUILAR H Attending Unavailable BALL, DR RSOAS Primary Care Unavailable BALL, DR ROSAS Consulting [...] Unavailable Broderick Howard DO Primary Care Provider [phone] Kristel Low APRN Emergency Provider [phone] Broderick Howard MD Primary Care Provider AFTAB DEY Attending Unavailable DAVID MCFADDEN Attending Unavailable DAVID MCFADDEN Referring Unavailable DAVID MCFADDEN Referring Unavailable JR. SALTER GEORGE C Attending Unavaila ble AFTAB DEY Attending Unavailable Broderick Howard DO Primary Care Provider Kristel Low APRN Emergency Provider [phone] KITTY VALENTE Attending Unava ilable BRODERICK HOWARD Primary Care Unavailable KITTY VALENTE Referring Unava ilable BRODERICK HOWARD Primary Care Unavailable ELIAN JONES Attending Unavailable ALEJANDRO VILLAR Referring Unavailable BRODERICK HOWARD Primary Care Unavailable Broderick Howard DO Primary Care Provider Broderick Howard DO Attending Provider [phone] TOMMIE, RANDA M Attending Unavailable REILLY, RANDA [...] BALL, BRODERICK E Primary Care Unavailable Trudi TREE FELLER-C, Tiana E Other Provider Leandra Gama MD Attending Provider Trudi TREE FELLER-C, Tiana Quinteros Attending Provider [phone] Kristel Low Attending Unavailable Ball, Broderick Primary [...] [dexAMETHasone] Drug Allergy 10-03-20 15 Rash, Unknown [facility] (20 sources) pregabalin; Translations: [pregabalin] Drug Allergy 08-24-20 13 Rash [facility] (20 sources) rifAXIMin Drug Allergy 02-09-20 24 rash [facility] (1 source) Dexamethasone Drug Allergy [facility] (6 sources) pregabalin; Translations: [Lyrica] Drug Allergy 11-15-19 08 [facility] (20 sources) Dexamethasone Drug Allergy 02-08-20 24 Unknown, Unknown Reaction [facility] (8 sources) Allergies Reconciled Propensity to adverse reactions Unknown [facility] Other (8 sources) patient allergy list reviewed by nurse or physicia Propensity to adverse reactions 04-13-20 19 Comment:Done [facility] Other (3 sources) Pregabalin Allergy to substance 08-24-20 13 Rash, Unknown [facility] (3 sources) rifAXIMin Drug Allergy 04-21-20 Rash [facility] (1 source) Dexamethasone Drug Allergy 07-02-20 [facility] Repository (1 source) pregabalin Drug Allergy 07-02-20 [facility] Rep[facility] (1 source) rifAXIMin Drug Allergy 07-02-20 [facility] Repository Medications Current Medications Medication Drug Class(es) [...] for 7 day(s), 21 tab(s), Refill(s) 0, [facility]/pharmacy #[id number], 157, cm, 10/25/24 11:44:00 EST, Height/Length [...] on above: Take 1 capsule by [facility] once daily. ondansetron 4 mg disintegrating [...] DAY Start: 08-20-2024 take 1 capsule by [facility] once daily Venlafaxine Active 0 [...] 20, 2023 11:47am take 1 tablet by [facility] every twenty-four hours Venlafaxine HCl 75 MG 1 tablet with food Orally Once a day Not-Taking/PRN Comment on above: Take 1 capsule by [facility] once daily. Vitamin D (1 [...] 2:56pm Start: 08-12-2023 take 1 capsule by 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; Translations: [SNF CURRNT USE ANTICOAGULANTS] Onset: 3 Episodic Other aftercare (8 sources) Long-term current use of drug therapy; 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] Episodic Other aftercare (1 source) Drug therapy finding; Translations: [Other jail (current) drug therapy] 02-08-2024 Episodic Other and [...] Other aftercare (20 sources) Anticoagulant effect; Translations: [intermediate (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 of anticoagulants] Onset: 05-14-2015 05-14-2015 Episodic Other aftercare (1 source) Other jail (current) drug therapy; Translations: [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 Performed By: #### C REAT ####[place] [id number] [facility] GFR/1.73 sq M.predicted MDRD (S/P/Bld) [Vol rate/Area] 27.025 mL/min/{1.73_m2} Normal [facility] Comment on above: Order Comment: STAT FOR MRI Performed By: #### C REAT ####[place] [id number] [facility] Creatinine [Mass/volume] in Serum or PlasmaOrdered By: Tiana Brush on 08-01-2025 Creatinine [Mass/Vol] 1.91 mg/dL High 0.60-1.[address] [facility] Comment on above: Order Comment: STAT FOR MRI Performed By: #### C REAT ####[place] [id number] [facility] Glomerular filtration rate [ Volume Rate/Area] in Serum, Plasma or Blood by CreatinineOrdered By: Tiana Brush on 08-01-2025 Glomerular filtration rate [Volume Rate/Area] in Serum, Plasma or Blood by Creatinine 27.025 mL/Min [facility] ISTAT XRay CREon 08-01-2025 ISTAT GFR 27.197 Normal [facility] Comment on above: Result Comment: PERF ORMED BY: [facility] [address] [place] [address] PATHOLOGIST STORE DELI MANAGER LISA LOMBARDO M.D. Performed By: #### I SCRE ####[place] [id number] [facility] MR lumbar spine wo conon MR lumbar spine wo con [facility] Main [place] [address] [place] [address] MRI Report Signed Patient: Cassi Rodrigez MR#: [id number] 8 : 1950 Acct:[id number] Age/Sex: 75 / F ADM Date: 08/01/25 Loc: MR Room: Type: [facility] Attending Dr: Tiana CHAMBERS Copies to: REYES [...] Simon M.D. 08/01/2025 3:20 PM Dictation Location: [place] [address] Transcribed By: [facility] 08/01/25 1520 Dictated By: Arnel Simon II, MD 08/01/25 1508 Signed By: 08/01/25 1520 Normal [facility] Magnetic resonance imaging r eportOrdered By: Arnel Simon on 08-01-2025 Study report [facility] [place] [address] MRI Report Signed Patient: Cassi Rodrigez MR#: [id number] : 1950 Acct:[id number] Age/Sex: 75 / F ADM Date: 5 Loc: MR Room: Type: [facility] Attending Dr: Tiana CHAMBERS Copies to: REYES [...] Simon M.D. 08/01/2025 3:20 PM Dictation Location: [place] [address] Transcribed By: [facility] 08/01/25 1520 Dictated By: Arnel Simon II, MD 08/01/25 1508 Signed By: 08/01/25 1520 [facility] Work Phone: No Panel InformationOrdered By: Tiana Brush on 08-01-2025 Bedside Estimated GFR (eGFR) 27.197 [facility] Creatinine Clearance (Chem 25.93 [facility] Whole blood creatinine measu rementOrdered By: Tiana Brush on 08-01-2025 Creatinine [Mass/Vol] 1.9 mg/dL High 0.6-1.[address] [facility] Comment on above: ER/ESD physician is notified/shown all ISTAT results.Critical values may be confirmed by laboratory testing ifdeemed necessary by ER attending doctor. Result Comment: ER/E SD physician is notified/shown all ISTAT results. Critical values may be confirmed by laboratory testing if deemed necessary by ER attending doctor. Performed By: #### I SCRE ####[facility] [id number] [place] [address] [facility] CNOVon 07-18-2025 CNOV Office Visit (NEADFV ) -- CASSI RODRIGEZ ([id number]) 1950 F Date Time Provider Department 07/18/25 [...] Blanc RN Botox, 2 vials: Lot # [id number] Exp 09/2027 Lot # [id number] Exp 09/[address] Reilly [...] Injection Sites Muscle Fixed Site/Fixed Dose Bilat Director Of Corporate Sales 20 U divided in 2 sites Procerus [...] Units wasted: 0 Randa Reilly MD [facility] Randa Reilly MD 07/18/2025 12:52 PM Signed PROGRESS NOTE- HEADACHE MEDICINE SERVICE DATE: July 18, 2025 Location: [facility] Participants: patient, and provider HPI: Here for [...] with me or WENDY Randa Reilly MD [facility] [place] Referring Provider: RANDA REILLY [[id number]] Allergies As of Date: 07/18/2025 Noted Allergy Reaction LYRICA (PREGABALIN) 08/24/2013 2 - Rash DEXAMETHASONE 10/03/2015 2 - Rash Date Reviewed: 07/18/2025 Reviewed by: Nola Naranjo MA - Fully Assessed Reason for (more content not included)... Normal [facility] CNOVon 05-21-2025 CNOV Office Visit (NEBHLT ) -- CASSI RODRIGEZ ([id number]) 1950 F Date Time Provider Department 05/21/25 8:00 AM ELIAN JONES During your visit today, we recorded the following information about you: Blood pressure Weight 123/60 87.3 kg Elian Jones DO 05/23/2025 2:36 PM Signed [facility] New Patient Evaluation Cassi Rodrigez : 1950 05/21/2025 8:00 AM Chief Complaint: memory concern I had the pleasure of seeing this 75 year old year old female at the [facility]. The patient is referred by Dr. Alejandro [...] She was advised to follow up at [facility] for further evaluation of her memory [...] Injuries, Ac (more content not included)... Normal [facility] CNOVon 04-10-2025 CNOV Office Visit (NEADFV ) -- CASSI RODRIGEZ ([id number]) 1950 F Date Time Provider Department 04/10/25 11:30 AM RANDA REILLY NETAHMINAFV During your visit today, we recorded the following information about you: Pulse Blood pressure Weight Height 86/minute 109/72 85.6 kg 1.575 m Randa Reilly MD 04/10/2025 12:19 PM Signed PROGRESS NOTE- HEADACHE MEDICINE SERVICE DATE: April 10, 2025 Location: [facility] Participants: patient, and provider HPI: Here for [...] with me or WENDY Randa Reilly MD [facility] [place] Lon Alexander RN 04/10/2025 12:19 PM Signed [...] Farfan RN Botox, 2 vials: Lot # [id number] Exp 08/2027 Lot # [id number] Exp 08/[address] Reilly [...] Injection Sites Muscle Fixed Site/Fixed Dose Bilat Director Of Corporate Sales 20 U divided in 2 sites Procerus [...] Total Units wasted: 0 Randa Reilly MD [facility] [place] Referring Provider: RANDA REILLY [[id number]] Allergies As of Date: 04/10/2025 Noted Allergy [...] bedtime. - (more content not included)... Normal [facility] Erythrocyte distribution wid th Auto (RBC) [Ratio]on 02-12-2025 Erythrocyte distribution width (RBC) [Ratio] Erythrocyte distribution width [Ratio] by Automated count 11.0-15.0 [facility] Estimated glomerular filtrat ion rate (GFR) non- Americanon 02-12-2025 GFR/1.73 sq M.predicted among non-blacks MDRD (S/P/Bld) [Vol rate/Area] Estimated glomerular filtration rate (GFR) non- Low >=60 mL/min/1.7 2 [facility] Hematocrit Auto (Bld) [Volum e fraction]on 02-12-2025 Hematocrit (Bld) [Volume fraction] Hematocrit [Volume Fraction] of Blood by Automated count 36.0-48.0 [facility] Hemoglobin [Mass/volume] in Bloodon 02-12-2025 Hemoglobin (Bld) [Mass/Vol] Hemoglobin [Mass/volume] in Blood 12.0-16.0 [facility] Iron binding capacity [Mass/ volume] in Serum or Plasmaon 02-12-2025 Iron binding capacity [Mass/Vol] Iron binding capacity [Mass/volume] in Serum or Plasma 250.0-450. 0 [facility] Iron saturation [Mass Fracti on] in Serum or Plasmaon 02-12-2025 Iron saturation [Mass fraction] Iron saturation [Mass Fraction] in Serum or Plasma [facility] Laboratory - Chemistry and C hemistry - challengeon 02-12-2025 Albumin [Mass/Vol] 3.3 g/dL Low 3.4-5.0 [facility] Calcium [Mass/Vol] 8.6 mg/dL 8.5-10.1 [facility] Chloride [Moles/Vol] 107 mmol/L 98-107 [facility] CO2 [Moles/Vol] 21.1 mmol/L 21.0-32.0 [facility] Creatinine [Mass/Vol] 1.94 mg/dL High 0.55-1.[address] [facility] Ferritin [Mass/Vol] 62.0 ng/mL 8.0-252.0 [facility] GFR/1.73 sq M.predicted MDRD (S/P/Bld) [Vol rate/Area] 31 mL/min/{1.73_m2} Low >=60 mL/min/1.7 2 [facility] Glucose [Mass/Vol] 117 mg/dL High 74-106 [facility] Iron [Mass/Vol] 75.0 ug/dL 50.0-170.0 [facility] Magnesium [Mass/Vol] 2.0 mg/dL 1.8-2.4 [facility] Potassium [Moles/Vol] 4.6 mmol/L 3.5-5.[address] [facility] Sodium [Moles/Vol] 141 mmol/L 136-145 [facility] Urate [Mass/Vol] 5.0 mg/dL 2.6-6.0 [facility] Urea nitrogen [Mass/Vol] 27.0 mg/dL High 7.0-18.0 [facility] Urea nitrogen/Creatinine [Mass ratio] 13.9 mg/mg [facility] Laboratory - Urinalysison Protein (U) [Mass/Vol] 24.6 mg/dL High <=11.9 [facility] Leukocytes [#/volume] correc tanesha for nucleated erythrocytes in Blood by Automated counon 02-12-2025 WBC corrected for nucl RBC Auto (Bld) [#/Vol] Leukocytes [#/volume] corrected for nucleated erythrocytes in Blood by Automated coun 4.0-11.0 [facility] MCH Auto (RBC) [Entitic mass ]on 02-12-2025 MCH (RBC) [Entitic mass] MCH [Entitic mass] by Automated count 26.7-34.0 [facility] MCHC Auto (RBC) [Mass/Vol]on 02-12-2025 MCHC (RBC) [Mass/Vol] MCHC [Mass/volume] by Automated count 29.9-35.2 [facility] MCV Auto (RBC) [Entitic vol] on 02-12-2025 MCV (RBC) [Entitic vol] MCV [Entitic vol ume] by Automated count 81.0-99.0 [facility] No Panel Informationon 02-12 25-Hydroxy Vitamin D Total 36.0 ng/mL [facility] Comment on above: <20 ng/mL Vit D defi cient20-<30 ng/mL Vit D [id number] ng/mL Vit D sufficient>100 ng/mL Potential Toxicity Parathyroid Hormone (Intact) 141 pg/mL Abnormal 15-65 [facility] Comment on above: Performed at: [address] [id number] Director: Junaid Sawyer PhD, Phone: [phone] Phosphorus Level 3.5 mg/dL 2.6-4.7 [facility] Urine Random Creatinine 127.82 mg/dL 20.0 0-300. 00 [facility] Platelet mean volume Auto (B ld) [Entitic vol]on 02-12-2025 Platelet mean volume (Bld) [Entitic vol] Platelet mean volume [Entitic volume] in Blood by Automated count 9.5-13.5 [facility] Platelets Auto (Bld) [#/Vol] on 02-12-2025 Platelets (Bld) [#/Vol] Platelets [#/vol ume] in Blood by Automated count 150-450 [facility] RBC Auto (Bld) [#/Vol]on RBC (Bld) [#/Vol] Erythrocytes [#/volu me] in Blood by Automated count Low 4.20-5.40 [facility] Serum or plasma anion gap de terminationon 02-12-2025 Anion gap [Moles/Vol] Serum or plasma an ion gap determination [facility] Urine protein/creatinine rat ioon 02-12-2025 Protein/Creatinine (U) [Ratio] Urine protein/creatinine ratio [facility] CNOVon 01-05-2025 CNOV Office Visit (LANAFV ) -- CASSI RODRIGEZ ([id number]) 1950 F Date Time Provider Department 01/05/25 12:00 PM SVITLANA [place] During your visit today, we recorded the following information about you: Pulse Blood pressure Weight Height 86/minute 127/61 86.7 kg 1.575 m Svitlana Mayfield, CONNIE.HORTICULTURE WORKER 01/05/2025 12:15 PM Signed Follow-Up Onabotulinum Toxin [...] for migraine Informed Consent Consent Obtained: Written Cutler Protocol A moment to CARE was completed [...] applicable Written Consent Obtained: Written LOT #: [id number] Expiration Date: Month: Year: 2026 Second vial: LOT #: [id number] Expiration Date: Month: Year: 2026 Injection Sites Left (Units) Left (Sites) Right (Units) Right (Sites) TOTAL (Units) Director Of Corporate Sales 5 1 5 1 10 Procerus Units: [...] migraine pr (more content not included)... Normal [facility] CNOVon 01-04-2025 CNOV Office Visit (NEEPFV ) -- CASSI RODRIGEZ ([id number]) 1950 F Date Time Provider Department 01/04/25 2:00 PM ALEJANDRO VILLAR NEEPFV During your visit today, we recorded the following information about you: Pulse Blood pressure Weight Height 86/minute 127/61 87 kg 1.575 m Alejandro Villar MD, PhD 01/04/2025 2:17 PM Signed [facility] Patient Name: Cassi Rodrigez Date of : 1950 ESTABLISHED EPILEPSY CLINIC NOTE 01/04/2025 2:00 PM Reason for Visit: Follow Up Clinical Summary: Ms. Rodrigez is a 74 year old right-handed female seen in [facility]. 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 Normal [facility] Alanine aminotransferase [En zymatic activity/volume] in Serum or PlasmaOrdered By: Kristel Low on 11-24-2024 ALT [Catalytic activity/Vol] Alanine aminotransferase [Enzymatic activity/volume] in Serum or Plasma 7-52 [facility] Albumin [Mass/volume] in Ser um or Plasma by Bromocresol green (BCG) dye binding methoOrdered By: Kristel Low on 11-24-2024 Albumin BCG dye [Mass/Vol] Albumin [Mass/volume] in Serum or Plasma by Bromocresol green (BCG) dye binding metho 3.5-5.7 [facility] Alkaline phosphatase [Enzyma tic activity/volume] in Serum or PlasmaOrdered By: Kristel Low on 11-24-2024 ALP [Catalytic activity/Vol] Alkaline phosphatase [Enzymatic activity/volume] in Serum or Plasma High 34-104 [facility] Appearance of UrineOrdered B y: Kristel Low on 11-24-2024 Appearance (U) Urine appearance Clear [facility] Aspartate aminotransferase [ Enzymatic activity/volume] in Serum or PlasmaOrdered By: Kristel Low on 11-24-2024 AST [Catalytic activity/Vol] Aspartate aminotransferase [Enzymatic activity/volume] in Serum or Plasma Low 13-39 [facility] Bacteria [Presence] in Urine by AutomatedOrdered By: Kristel Low on 11-24-2024 Bacteria Auto Ql (U) Bacteria [Presence] in Urine by Automated None Seen [facility] Basophils Auto (Bld) [#/Vol] Ordered By: Kristel Low on 11-24-2024 Basophils (Bld) [#/Vol] Automated basophil count 0.0-0.2 [facility] Basophils/100 WBC Auto (Bld) Ordered By: Kristel Low on 11-24-2024 Basophils/100 WBC (Bld) Automated basophil % . [facility] Bilirubin Test strip Ql (U)O rdered By: Kristel Low on 11-24-2024 Bilirubin Ql (U) Bilirubin.total [Pre sence] in Urine by Test strip Negative [facility] Bilirubin.total [Mass/volume ] in Serum or PlasmaOrdered By: Kristel Low on 11-24-2024 Bilirubin [Mass/Vol] Bilirubin.total [Mass/volume] in Serum or Plasma 0.3-1.0 [facility] Blood Cultureon 11-24-2024 Bacteria identified Cx Nom (Bld) NO GROWTH 5 DAYS PERFORMED BY: [facility] [address] [place] [address] PATHOLOGIST STORE DELI MANAGER LEON MA M.D. Normal [facility] Comment on above: Performed By: #### C MP, PT, PTT, CUBLD, LACTIC, LIPASE, CBC ####[facility] [id number] [place] [address] [facility] Bacteria identified Cx Nom (Bld) NO GROWTH 5 DAYS PERFORMED BY: [facility] [address] [place] [address] PATHOLOGIST STORE DELI MANAGER LEON MA M.D. Normal [facility] Comment on above: Performed By: #### C MP, PT, PTT, CUBLD, LACTIC, LIPASE, CBC #### [facility] [address] [place] [id number] [facility] CT abdomen pelvis wo conon 0 11-24-2024 CT abdomen pelvis wo con [facility] Main [place] [address] [place] [address] CT Scan Report Signed Patient: aCssi Rodrigez MR#: [id number] 8 : 1950 Acct:[id number] Age/Sex: 74 / F ADM Date: 11/24/24 Loc: ER Room: Type: [facility] ER Attending Dr: Copies to: Kristel [...] Arnel Simon M.D.11/24/2024 3:48 PM Dictation Location: [place] [address] Transcribed By: [facility] 11/24/24 1548 Dictated By: Arnel Simon II, MD 11/24/24 1538 Signed By: 11/24/24 1548 Normal [facility] Calcium [Mass/volume] in Ser um or PlasmaOrdered By: Kristel oLw on 11-24-2024 Calcium [Mass/Vol] Calcium [Mass/volume ] in Serum or Plasma Low 8.6-10.3 [facility] Carbon dioxide, total [Moles /volume] in Serum or PlasmaOrdered By: Kristel Low on 11-24-2024 CO2 [Moles/Vol] Carbon dioxide, tota l [Moles/volume] in Serum or Plasma 21.0-31.0 [facility] Chloride [Moles/volume] in S akila or PlasmaOrdered By: Kristel Low on 11-24-2024 Chloride [Moles/Vol] Chloride [Moles/vol ume] in Serum or Plasma High 98-107 [facility] Color Auto (U)Ordered By: Oly Low on 11-24-2024 Color (U) Color of Urine by Auto Yellow Fi [facility] Complete Blood Count Auto Di ffon 11-24-2024 Basophils (Bld) [#/Vol] 0.0 10*3/uL Normal 0.0-0.2 [facility] Comment on above: Result Comment: PERF ORMED BY: [facility] [address] [place] [address] PATHOLOGIST STORE DELI MANAGER LEON MA M.D. Performed By: #### C MP, PT, PTT, CUBLD, LACTIC, LIPASE, CBC #### [address] Basophils/100 WBC (Bld) 0.5 % Normal . Galo alas [facility] Comment on above: Performed By: #### C MP, PT, PTT, CUBLD, LACTIC, LIPASE, CBC #### [address] Eosinophils (Bld) [#/Vol] 0.3 10*3/uL Normal 0.0-0.45 [facility] Comment on above: Performed By: #### C MP, PT, PTT, CUBLD, LACTIC, LIPASE, CBC #### [address] Eosinophils/100 WBC (Bld) 5.9 % Normal . [facility] Comment on above: Performed By: #### C MP, PT, PTT, CUBLD, LACTIC, LIPASE, CBC #### [address] Erythrocyte distribution width (RBC) [Ratio] 14.2 % Normal 11.9-15.3 [facility] Comment on above: Performed By: #### C MP, PT, PTT, CUBLD, LACTIC, LIPASE, CBC #### [address] Hematocrit (Bld) [Volume fraction] 28.7 % Low 34.0-46.4 [facility] Comment on above: Performed By: #### C MP, PT, PTT, CUBLD, LACTIC, LIPASE, CBC #### [address] Hemoglobin (Bld) [Mass/Vol] 9.7 g/dL Low 11.8-15.4 [facility] Comment on above: Performed By: #### C MP, PT, PTT, CUBLD, LACTIC, LIPASE, CBC #### [address] Lymphocytes (Bld) [#/Vol] 0.7 10*3/uL Low 1.00-4.8 [facility] Comment on above: Performed By: #### C MP, PT, PTT, CUBLD, LACTIC, LIPASE, CBC #### [address] Lymphocytes/100 WBC (Bld) 13.8 % Normal . [facility] Comment on above: Performed By: #### C MP, PT, PTT, CUBLD, LACTIC, LIPASE, CBC #### [address] MCH (RBC) [Entitic mass] 32.2 pg Normal 24.7-34.3 [facility] Comment on above: Performed By: #### C MP, PT, PTT, CUBLD, LACTIC, LIPASE, CBC #### [address] MCV (RBC) [Entitic vol] 95.4 fL Normal 80-100 [facility] Comment on above: Performed By: #### C MP, PT, PTT, CUBLD, LACTIC, LIPASE, CBC #### [address] Mean Corpuscular HGB Conc 33.8 g/dL Normal 32.0-35.0 [facility] Comment on above: Performed By: #### C MP, PT, PTT, CUBLD, LACTIC, LIPASE, CBC #### [address] Monocytes (Bld) [#/Vol] 0.4 10*3/uL Normal 0.0-0.8 [facility] Comment on above: Performed By: #### C MP, PT, PTT, CUBLD, LACTIC, LIPASE, CBC #### [address] Monocytes/100 WBC (Bld) 19.31 % Normal 0.00-20.00 [facility] Comment on above: Performed By: #### C MP, PT, PTT, CUBLD, LACTIC, LIPASE, CBC #### [address] Monocytes/100 WBC (Bld) 7.8 % Normal . [facility] Comment on above: Performed By: #### C MP, PT, PTT, CUBLD, LACTIC, LIPASE, CBC #### [address] Neutrophils (Bld) [#/Vol] 3.7 10*3/uL Normal 1.8-7.7 [facility] Comment on above: Performed By: #### C MP, PT, PTT, CUBLD, LACTIC, LIPASE, CBC #### [address] Neutrophils/100 WBC (Bld) 72.0 % Normal . [facility] Comment on above: Performed By: #### C MP, PT, PTT, CUBLD, LACTIC, LIPASE, CBC #### [address] NRBC% 0.1 /100{WBC} Normal 0-0.5 [facility] Comment on above: Performed By: #### C MP, PT, PTT, CUBLD, LACTIC, LIPASE, CBC #### [address] Platelet mean volume (Bld) [Entitic vol] 7.2 fL Normal 6.3-10.7 [facility] Comment on above: Performed By: #### C MP, PT, PTT, CUBLD, LACTIC, LIPASE, CBC #### [address] Platelets (Bld) [#/Vol] 286 10*3/uL Normal 150-450 [facility] Comment on above: Performed By: #### C MP, PT, PTT, CUBLD, LACTIC, LIPASE, CBC #### [place] [address] [place] RBC (Bld) [#/Vol] 3.01 10*6/uL Low 3.60-5.00 [facility] Comment on above: Performed By: #### C MP, PT, PTT, CUBLD, LACTIC, LIPASE, CBC #### [address] WBC (Bld) [#/Vol] 5.1 10*3/uL Normal 3.8-11.6 [facility] Comment on above: Performed By: #### C MP, PT, PTT, CUBLD, LACTIC, LIPASE, CBC #### [address] Comprehensive Metabolic Pane daisha 11-24-2024 Albumin [Mass/Vol] 3.6 g/dL Normal 3.5-5.7 [facility] Comment on above: Performed By: #### C MP, PT, PTT, CUBLD, LACTIC, LIPASE, CBC #### [address] Albumin/Globulin [Mass ratio] 1.4 {ratio} Normal [facility] Comment on above: Performed By: #### C MP, PT, PTT, CUBLD, LACTIC, LIPASE, CBC #### [address] ALP [Catalytic activity/Vol] 174 U/L High 34-104 [facility] Comment on above: Performed By: #### C MP, PT, PTT, CUBLD, LACTIC, LIPASE, CBC #### [address] ALT [Catalytic activity/Vol] 8 U/L Normal 7-52 [facility] Comment on above: Performed By: #### C MP, PT, PTT, CUBLD, LACTIC, LIPASE, CBC #### [address] Anion gap [Moles/Vol] 9.7 mmol/L Normal 6.0-15.0 [facility] Comment on above: Performed By: #### C MP, PT, PTT, CUBLD, LACTIC, LIPASE, CBC #### [address] AST [Catalytic activity/Vol] 12 U/L Low 13-39 [facility] Comment on above: Performed By: #### C MP, PT, PTT, CUBLD, LACTIC, LIPASE, CBC #### [address] Bilirubin [Mass/Vol] 0.7 mg/dL Normal 0.3-1.0 [facility] Comment on above: Performed By: #### C MP, PT, PTT, CUBLD, LACTIC, LIPASE, CBC #### [address] Calcium [Mass/Vol] 8.5 mg/dL Low 8.6-10.3 [facility] Comment on above: Performed By: #### C MP, PT, PTT, CUBLD, LACTIC, LIPASE, CBC #### [address] Chloride [Moles/Vol] 111 mmol/L High 98-107 [facility] Comment on above: Performed By: #### C MP, PT, PTT, CUBLD, LACTIC, LIPASE, CBC #### [address] CO2 [Moles/Vol] 23.6 mmol/L Normal 21.0-31.0 [facility] Comment on above: Performed By: #### C MP, PT, PTT, CUBLD, LACTIC, LIPASE, CBC #### [address] Creatinine [Mass/Vol] 1.66 mg/dL High 0.60-1.20 [facility] Comment on above: Performed By: #### C MP, PT, PTT, CUBLD, LACTIC, LIPASE, CBC #### [address] Creatinine Clr Calc Pharmacy 30.82 Normal [facility] Comment on above: Performed By: #### C MP, PT, PTT, CUBLD, LACTIC, LIPASE, CBC #### [address] Estimated GFR 32.179 mL/Min Normal [facility] Comment on above: Performed By: #### C MP, PT, PTT, CUBLD, LACTIC, LIPASE, CBC #### [address] Globulin (S) [Mass/Vol] 2.6 g/dL Normal T he [facility] Comment on above: Performed By: #### C MP, PT, PTT, CUBLD, LACTIC, LIPASE, CBC #### [address] Glucose [Mass/Vol] 99 mg/dL Normal 70-100 [facility] Comment on above: Result Comment: [facility] Glucose Reference Range is dependent on time and content of last meal. Glucose of more than 200 mg/dL in a nonstressed, ambulatory subject supports the diagnosis of Diabetes Mellitus. ADA recommended reference range Performed By: #### C MP, PT, PTT, CUBLD, LACTIC, LIPASE, CBC #### [address] Potassium [Moles/Vol] 4.3 mmol/L Normal 3.5-5.1 [facility] Comment on above: Performed By: #### C MP, PT, PTT, CUBLD, LACTIC, LIPASE, CBC #### [address] Protein [Mass/Vol] 6.2 g/dL Low 6.4-8.9 [facility] Comment on above: Performed By: #### C MP, PT, PTT, CUBLD, LACTIC, LIPASE, CBC #### [address] Sodium [Moles/Vol] 140 mmol/L Normal 136-145 [facility] Comment on above: Performed By: #### C MP, PT, PTT, CUBLD, LACTIC, LIPASE, CBC #### [address] Urea nitrogen [Mass/Vol] 24 mg/dL Normal 7-25 [facility] Comment on above: Performed By: #### C MP, PT, PTT, CUBLD, LACTIC, LIPASE, CBC #### [address] Creatinine [Mass/volume] in Serum or PlasmaOrdered By: Kristel Low on 11-24-2024 Creatinine [Mass/Vol] Creatinine [Mass/v olume] in Serum or Plasma High 0.60-1.20 [facility] Dipstick and Microscopicon 0 11-24-2024 Appearance (U) Clear Normal Clear [facility] Comment on above: Order Comment: Name Collection Type:: Clean-Voided Midstream Performed By: #### A DDONUAPLUS #### [address] Bacteria,Urine None Seen Normal None Seen [facility] Comment on above: Order Comment: Name Collection Type:: Clean-Voided Midstream Performed By: #### A DDONUAPLUS #### [place] [address] [place] Bilirubin,Urine Negative Normal Negative [facility] Comment on above: Order Comment: Name Collection Type:: Clean-Voided Midstream Performed By: #### A DDONUAPLUS #### [address] Color (U) Light-Yellow Normal Yellow [facility] Comment on above: Order Comment: Name Collection Type:: Clean-Voided Midstream Performed By: #### A DDONUAPLUS #### [address] Glucose Ql (U) Normal Normal Normal [facility] Comment on above: Order Comment: Name Collection Type:: Clean-Voided Midstream Performed By: #### A DDONUAPLUS #### [place] [address] [place] Hyaline Casts,Urine 0 [LPF] Normal 0-8 [facility] Comment on above: Order Comment: Name Collection Type:: Clean-Voided Midstream Performed By: #### A DDONUAPLUS #### [place] [address] [place] Ketones Ql (U) Negative Normal Negative [facility] Comment on above: Order Comment: Name Collection Type:: Clean-Voided Midstream Performed By: #### A DDONUAPLUS #### [address] Leukocyte esterase Test strip Ql (U) 1+ High Negative [facility] Comment on above: Order Comment: Name Collection Type:: Clean-Voided Midstream Performed By: #### A DDONUAPLUS #### [place] [address] [place] Mucus,Urine Rare Normal [facility] Comment on above: Order Comment: Name Collection Type:: Clean-Voided Midstream Result Comment: PERF ORMED BY: [place] [address] PATHOLOGIST STORE [employer] MANAGER LEON MA M.D. Performed By: #### A DDONUAPLUS #### [address] Nitrite,Urine Negative Normal Negative [facility] Comment on above: Order Comment: Name Collection Type:: Clean-Voided Midstream Performed By: #### A DDONUAPLUS #### [address] Occult Blood,Urine Negative Normal Negative [facility] Comment on above: Order Comment: Name Collection Type:: Clean-Voided Midstream Result Comment: PERF ORMED BY: [place] [address] PATHOLOGIST STORE [employer]I MANAGER LEON MA M.D. Performed By: #### A DDONUAPLUS #### [address] pH (U) 5.5 [pH] Normal 5.0-9.0 [facility] Comment on above: Order Comment: Name Collection Type:: Clean-Voided Midstream Performed By: #### A DDONUAPLUS #### [address] Protein,Urine Negative Normal Negative [facility] Comment on above: Order Comment: Name Collection Type:: Clean-Voided Midstream Performed By: #### A DDONUAPLUS #### [address] RBC,Urine 1 [HPF] Normal 0-4 [facility] Comment on above: Order Comment: Name Collection Type:: Clean-Voided Midstream Performed By: #### A DDONUAPLUS #### [address] [place] [address] [place] Specificy [place],Urine 1.020 Normal 1.00 1-1.03 0 [facility] Comment on above: Order Comment: Name Collection Type:: Clean-Voided Midstream Performed By: #### A DDONUAPLUS #### [facility] [address] [place] [address] Squamous Epithelial Cell,Urine 3 [HPF] High 0-2 [facility] Comment on above: Order Comment: Name Collection Type:: Clean-Voided Midstream Performed By: #### A DDONUAPLUS #### [address] Urobilinogen,Urine Normal Normal Normal [facility] Comment on above: Order Comment: Name Collection Type:: Clean-Voided Midstream Performed By: #### A DDONUAPLUS #### [address] WBC,Urine 1 [HPF] Normal 0-4 [facility] Comment on above: Order Comment: Name Collection Type:: Clean-Voided Midstream Performed By: #### A DDONUAPLUS #### [address] Eosinophils Auto (Bld) [#/Vo l]Ordered By: Kristel Low on 11-24-2024 Eosinophils (Bld) [#/Vol] Automated eosinophil count 0.0-0.45 [facility] Eosinophils/100 WBC Auto (Bl d)Ordered By: Kristel Low on 11-24-2024 Eosinophils/100 WBC (Bld) Automated eosinophil % . [facility] Epithelial cells.squamous [# /area] in Urine sediment by Automated countOrdered By: Kristel Low on 11-24-2024 Epithelial cells.squamous Auto (Urine sed) [#/Area] Epithelial cells.squamous [#/area] in Urine sediment by Automated count High 0-2 [facility] Erythrocyte distribution wid th Auto (RBC) [Ratio]Ordered By: Kristel Low on 11-24-2024 Erythrocyte distribution width (RBC) [Ratio] Erythrocyte distribution width [Ratio] by Automated count 11.9-15.3 [facility] Erythrocytes [#/area] in Uri ne sediment by Automated countOrdered By: Kristel Low on 11-24-2024 RBC Auto (Urine sed) [#/Area] Erythrocytes [#/area] in Urine sediment by Automated count 0-4 [facility] Globulin Calc (S) [Mass/Vol] Ordered By: Kristel Low on 11-24-2024 Globulin (S) [Mass/Vol] Serum globulin m easurement by calculation (mass/volume) [facility] Glucose [Mass/volume] in Ser um or PlasmaOrdered By: Kristel Low on 11-24-2024 Glucose [Mass/Vol] Glucose [Mass/volume ] in Serum or Plasma 70-100 [facility] Comment on above: ADA recommended refe rence rangeRandom Glucose Reference Range is dependent on time and content of last meal. Glucose of more than 200 mg/dL in a nonstressed, ambulatory subject supports the diagnosis of Diabetes Mellitus. Glucose [Mass/volume] in Uri ne by Test stripOrdered By: Kristel Low on 11-24-2024 Glucose Test strip (U) [Mass/Vol] Glucose [Mass/volume] in Urine by Test strip Normal [facility] Hematocrit Auto (Bld) [Volum e fraction]Ordered By: Kristel Low on 11-24-2024 Hematocrit (Bld) [Volume fraction] Hematocrit [Volume Fraction] of Blood by Automated count Low 34.0-46.4 [facility] Hemoglobin Test strip Ql (U) Ordered By: Kristel Low on 11-24-2024 Hemoglobin Ql (U) Hemoglobin [Presence ] in Urine by Test strip Negative [facility] Hemoglobin [Mass/volume] in BloodOrdered By: Kristel Low on 11-24-2024 Hemoglobin (Bld) [Mass/Vol] Hemoglobin [Mass/volume] in Blood Low 11.8-15.4 [facility] Hyaline casts [#/area] in Ur ine sediment by Automated countOrdered By: Kristel Low on 11-24-2024 Hyaline casts Auto (Urine sed) [#/Area] Hyaline casts [#/area] in Urine sediment by Automated count 0-8 [facility] INR in Platelet poor plasma by Coagulation assayOrdered By: Kristel Low on 11-24-2024 INR Coag (PPP) [Relative time] INR in Platelet poor plasma by Coagulation assay [facility] Comment on above: INR Therapeutic Rang e [...] i n Urine by Test strip Negative [facility] Laboratory - Microbiology an d Antimicrobial susceptibilityOrdered By: Kristel Low on 11-24-2024 Bacteria identified Cx Nom (Bld) NO GROWTH 5 DAYS [facility] Bacteria identified Cx Nom (Bld) NO GROWTH 5 DAYS [facility] Bacteria identified Cx Nom (Bld) NO GROWTH 5 DAYS [facility] Bacteria identified Cx Nom (Bld) NO GROWTH 5 DAYS [facility] Lactate [Moles/volume] in Se rum or PlasmaOrdered By: Kristel Low on 11-24-2024 Lactate [Moles/Vol] Lactate [Moles/volum e] in Serum or Plasma 0.5-2.2 [facility] Lactic Acidon 11-24-2024 Lactate [Moles/Vol] 0.8 mmol/L Normal 0.5-2.2 [facility] Comment on above: Result Comment: PERF ORMED BY: [facility] [address] [place] [address] PATHOLOGIST STORE [employer]I MANAGER LEON MA M.D. Performed By: #### C MP, PT, PTT, CUBLD, LACTIC, LIPASE, CBC #### [address] Leukocyte esterase [Presence ] in Urine by Test stripOrdered By: Kristel Low on 11-24-2024 Leukocyte esterase Test strip Ql (U) Leukocyte esterase [Presence] in Urine by Test strip High Negative [facility] Leukocytes [#/area] in Urine sediment by Automated countOrdered By: Kristel Low on 11-24-2024 WBC Auto (Urine sed) [#/Area] Leukocytes [#/area] in Urine sediment by Automated count 0-4 [facility] Leukocytes [#/volume] correc tanesha for nucleated erythrocytes in Blood by Automated counOrdered By: Kristel Low on 11-24-2024 WBC corrected for nucl RBC Auto (Bld) [#/Vol] Leukocytes [#/volume] corrected for nucleated erythrocytes in Blood by Automated coun 3.8-11.6 [facility] Lipaseon 11-24-2024 Lipase [Catalytic activity/Vol] 10.0 U/L Low 11.0-82.0 [facility] Comment on above: Result Comment: PERF ORMED BY: [place] [address] PATHOLOGIST STORE [employer]I MANAGER LEON MA M.D. Performed By: #### C MP, PT, PTT, CUBLD, LACTIC, LIPASE, CBC #### [address] Lipase [Enzymatic activity/v olume] in Serum or PlasmaOrdered By: Kristel Low on 11-24-2024 Lipase [Catalytic activity/Vol] Lipase [Enzymatic activity/volume] in Serum or Plasma Low 11.0-82.0 [facility] Lymphocytes Auto (Bld) [#/Vo l]Ordered By: Kristel Low on 11-24-2024 Lymphocytes (Bld) [#/Vol] Lymphocytes [#/volume] in Blood by Automated count Low 1.00-4.8 [facility] Lymphocytes/100 WBC Auto (Bl d)Ordered By: Kristel Low on 11-24-2024 Lymphocytes/100 WBC (Bld) Lymphocytes/100 leukocytes in Blood by Automated count . [facility] MCH Auto (RBC) [Entitic mass ]Ordered By: Kristel Low on 11-24-2024 MCH (RBC) [Entitic mass] MCH [Entitic mass] by Automated count 24.7-34.3 [facility] MCHC Auto (RBC) [Mass/Vol]Or dered By: Kristel Low on 11-24-2024 MCHC (RBC) [Mass/Vol] MCHC [Mass/volume] by Automated count 32.0-35.0 [facility] MCV Auto (RBC) [Entitic vol] Ordered By: Kristel Low on 11-24-2024 MCV (RBC) [Entitic vol] MCV [Entitic vol ume] by Automated count 80-100 [facility] Monocyte distribution width [Entitic volume] in Blood by AutomatedOrdered By: Kristel Low on 11-24-2024 Monocyte distribution width Auto (Bld) [Entitic vol] Monocyte distribution width [Entitic volume] in Blood by Automated 0.00-20.00 [facility] Monocytes Auto (Bld) [#/Vol] Ordered By: Kristel Low on 11-24-2024 Monocytes (Bld) [#/Vol] Automated blood monocyte count 0.0-0.8 [facility] Monocytes/100 WBC Auto (Bld) Ordered By: Kristel Low on 11-24-2024 Monocytes/100 WBC (Bld) Automated monocyte % . [facility] Mucus [Presence] in Urine by AutomatedOrdered By: Kristel Low on 11-24-2024 Mucus Auto Ql (U) Mucus [Presence] in Urine by Automated [facility] Neutrophils Auto (Bld) [#/Vo l]Ordered By: Kristel Low on 11-24-2024 Neutrophils (Bld) [#/Vol] Neutrophils [#/volume] in Blood by Automated count 1.8-7.7 [facility] Neutrophils/100 WBC Auto (Bl d)Ordered By: Kristel Low on 11-24-2024 Neutrophils/100 WBC (Bld) Automated neutrophil % . [facility] Nitrite Test strip Ql (U)Ord ered By: Kristel Low on 11-24-2024 Nitrite Ql (U) Nitrite [Presence] i n Urine by Test strip Negative [facility] No Panel InformationOrdered By: Kristel Low on 11-24-2024 Estimated GFR (CKD-EPI) 32.179 mL/Min [facility] Creatinine Clearance (Chem 30.82 [facility] Nucleated erythrocytes [Pres ence] in Blood by Automated countOrdered By: Kristel Low on 11-24-2024 Nucleated RBC Auto Ql (Bld) Nucleated erythrocytes [Presence] in Blood by Automated count 0-0.5 [facility] Partial Thromboplastin Timeo n 11-24-2024 aPTT Coag (Bld) [Time] 33.5 s Normal 25.1-36.5 Th e [facility] Comment on above: Result Comment: A he matocrit value greater than 55% may lead to inaccurate results in coagulation testing. Patients having hematocrit values >55% require a special collection tube for coagulation studies. Please contact the laboratory at [phone] for redraw instructions. PERFORMED BY: [place] [address] PATHOLOGIST STORE [employer] MANAGER LEON MA M.D. Performed By: #### C MP, PT, PTT, CUBLD, LACTIC, LIPASE, CBC #### [address] Platelet mean volume Auto (B ld) [Entitic vol]Ordered By: Kristel Low on 11-24-2024 Platelet mean volume (Bld) [Entitic vol] Platelet mean volume [Entitic volume] in Blood by Automated count 6.3-10.7 [facility] Platelets Auto (Bld) [#/Vol] Ordered By: Kristel Low on 11-24-2024 Platelets (Bld) [#/Vol] Platelets [#/vol ume] in Blood by Automated count 150-450 [facility] Potassium [Moles/volume] in Serum or PlasmaOrdered By: Kristel Low on 11-24-2024 Potassium [Moles/Vol] Potassium [Moles/v olume] in Serum or Plasma 3.5-5.1 [facility] Protein Test strip (U) [Mass /Vol]Ordered By: Kristel Low on 11-24-2024 Protein (U) [Mass/Vol] Protein [Mass/vol ume] in Urine by Test strip Negative [facility] Protein [Mass/volume] in Ser um or PlasmaOrdered By: Kristel Low on 11-24-2024 Protein [Mass/Vol] Protein [Mass/volume ] in Serum or Plasma Low 6.4-8.9 [facility] Prothrombin Time INRon 11-24 INR Coag (PPP) [Relative time] 2.0 {INR} Normal [facility] Comment on above: [...] PT, PTT, CUBLD, LACTIC, LIPASE, CBC #### [facility] [address] PT Coag (PPP) [Time] 22.8 s High 9.0-12.9 [facility] Comment on above: Result Comment: A he matocrit value greater than 55% may lead to inaccurate results in coagulation testing. Patients having hematocrit values >55% require a special collection tube for coagulation studies. Please contact the laboratory at [phone] for redraw instructions. Performed By: #### C MP, PT, PTT, CUBLD, LACTIC, LIPASE, CBC #### [facility] [address] Prothrombin time (PT)Ordered By: Kristel Low on 11-24-2024 PT Coag (PPP) [Time] Prothrombin time (PT) High 9.0- 12.9 [facility] Comment on above: A hematocrit value g reater than 55% may lead to inaccurate results in coagulation testing. Patients having hematocrit values >55% require a special collection tube for coagulation studies. Please contact the laboratory at [phone] for redraw instructions. RBC Auto (Bld) [#/Vol]Ordere d By: Kristel Low on 11-24-2024 RBC (Bld) [#/Vol] Erythrocytes [#/volu me] in Blood by Automated count Low 3.60-5.00 [facility] Serum or plasma albumin/glob ulin mass ratioOrdered By: Kristel Low on 11-24-2024 Albumin/Globulin [Mass ratio] Serum or plasma albumin/globulin mass ratio [facility] Serum or plasma anion gap de terminationOrdered By: Kristel Low on 11-24-2024 Anion gap [Moles/Vol] Serum or plasma an ion gap determination 6.0-15.0 [facility] Sodium [Moles/volume] in Ser um or PlasmaOrdered By: Kristel Low on 11-24-2024 Sodium [Moles/Vol] Sodium [Moles/volume ] in Serum or Plasma 136-145 [facility] Specific gravity Test strip (U) [Rel density]Ordered By: Kristel Low on 11-24-2024 Specific gravity (U) [Rel density] Specific gravity of Urine by Test strip 1.001-1.03 0 [facility] Urea nitrogen [Mass/volume] in Serum or PlasmaOrdered By: Kristel Low 11-24-2024 Urea nitrogen [Mass/Vol] Urea nitrogen [Mass/volume] in Serum or Plasma 7-25 [facility] Urobilinogen Test strip (U) [Mass/Vol]Ordered By: Kristel Low 11-24-2024 Urobilinogen (U) [Mass/Vol] Urobilinogen [Mass/volume] in Urine by Test strip Normal [facility] WBC Auto (Bld) [#/Vol]Ordere d By: Kristel Low 11-24-2024 WBC (Bld) [#/Vol] Leukocytes [#/volume ] in Blood by Automated count 3.8-11.6 [facility] aPTT in Platelet poor plasma by Coagulation assayOrdered By: Kristel Low 11-24-2024 aPTT Coag (PPP) [Time] Activated partial thromboplastin time (aPTT) in platelet poor plasma by coagulation a 25.1-36.5 [facility] Comment on above: A hematocrit value g reater than 55% may lead to inaccurate results in coagulation testing. Patients having hematocrit values >55% require a special collection tube for coagulation studies. Please contact the laboratory at [phone] for redraw instructions. pH Test strip (U)Ordered By: Kristel Low on 11-24-2024 pH (U) pH of Urine by Test strip 5.0-9.0 [facility] Ionized Calciumon 11-06-2024 Calcium.ionized ISE [Mass/Vol] 4.5 mg/dL Invalid Interpretation Code 4.5-5.6 [facility] Comment on above: Result Comment: Perf ormed at: CB [facility] [address] [id number] PhD Digna Quiroga Performed By: #### 2 [id number] #### [facility] [address] [place] [address] Main OR Intraoperative Recor don 11-06-2024 Main OR Intraoperative Record Main OR Intraoperative Record IntraOp Document Type FT Summary Primary Physician: Shashi De Souza MD Finalized Date/Time: 11/06/24 08:14:44 Pt. Name: CASSI RODRIGEZ/Sex: 1950 Female Med Rec #: [id number] Physician: Shashi De Souza MD Financial #: [id number] Pt. Type: O Room/Bed: [place] [address] Admit/Disch: 11/02/24 10:13:03 - 11/03/24 15:25:00 Institution: [...] Role Performed CARLOS ALBERTO Surgeon - Primary Yard Hand - Primary Time In 11/02/24 14:07:00 11/02/24 [...] Katy Eastman Role Performed Scrub - Primary RESIDENCE SUPERVISOR Manager Resource Time In 11/02/24 14:07:00 11/02/24 14:07:00 11/02/24 14:07:00 Time Out 11/02/24 15:48:00 11/02/24 15:48:00 11/02/24 15:48:00 Procedure LUMBAR LAMINECTOMY LUMBAR LAMINECTOMY LUMBAR LAMINECTOMY POSS. FUSION(.) POSS. FUSION(.) POSS. FUSION(.) Comments Last Modified By: Renetta Melendez Kelsie E Burgderfer, Kelsie E 11/02/24 15:51:39 11/02/24 15:51:39 11/02/24 15:51:39 Entry 7 Entry 8 Case Attendee Jin Presley Ii, Robert David Role Performed Staff - Other Anesthesiologist Irish Moss Bleacher Time In 11/02/24 14:07:00 11/02/24 14:53:00 Time [...] Yes sciati (more content not included)... Normal [facility] BMPon 11-03-2024 Anion gap [Moles/Vol] 8 mmol/L Normal 6-16 [facility] Comment on above: Performed By: #### 2 [id number] #### [facility] [address] [place] [address] Calcium [Mass/Vol] 8.0 mg/dL Low 8.9-11.1 [facility] Comment on above: Performed By: #### 2 [id number] #### [facility] [address] [place] [address] Chloride [Moles/Vol] 110 mmol/L Normal 101-111 [facility] Comment on above: Performed By: #### 2 [id number] #### [facility] [address] [place] [address] CO2 [Moles/Vol] 24 mmol/L Normal 21-31 [facility] Comment on above: Performed By: #### 2 [id number] #### [facility] [address] [place] [address] Creatinine [Mass/Vol] 1.6 mg/dL High 0.5-1.3 [facility] Comment on above: Performed By: #### 2 [id number] #### [facility] [address] [place] [address] Glucose [Mass/Vol] 106 mg/dL Normal 55-199 [facility] Comment on above: Performed By: #### 2 [id number] #### [facility] [address] [place] [address] Potassium [Moles/Vol] 4.1 mmol/L Normal 3.5-5.3 [facility] Comment on above: Performed By: #### 2 [id number] #### [facility] [address] [place] [address] Sodium [Moles/Vol] 138 mmol/L Normal 135-145 [facility] Comment on above: Performed By: #### 2 [id number] #### [facility] [address] [place] [address] Urea nitrogen [Mass/Vol] 20 mg/dL Normal 5-21 [facility] Comment on above: Performed By: #### 2 [id number] #### [facility] [address] [place] [address] Urea nitrogen/Creatinine [Mass ratio] 12 No Units Normal 10-20 [facility] Comment on above: Performed By: #### 2 [id number] #### [facility] [address] [place] [address] CBC w/Indiceson 11-03-2024 Erythrocyte distribution width (RBC) [Ratio] 14.4 % High 10.9-14.2 [facility] Comment on above: Performed By: #### 2 [id number] #### [facility] [address] [place] [address] Hematocrit (Bld) [Volume fraction] 35.4 % Normal 34.0-46.0 [facility] Comment on above: Performed By: #### 2 [id number] #### [facility] [address] [place] [address] Hemoglobin (Bld) [Mass/Vol] 11.9 g/dL Low 12.0-16.0 [facility] Comment on above: Performed By: #### 2 [id number] #### [facility] [address] [place] [address] MCH (RBC) [Entitic mass] 31.9 pg Normal 27.0-34.0 [facility] Comment on above: Performed By: #### 2 [id number] #### [facility] [address] [place] [address] MCHC (RBC) [Mass/Vol] 33.7 g/dL Normal 31.4-36.0 [facility] Comment on above: Performed By: #### 2 [id number] #### [facility] [address] [place] [address] MCV (RBC) [Entitic vol] 94.5 fL Normal 80.0-100.0 [facility] Comment on above: Performed By: #### 2 [id number] #### [facility] [address] [place] [address] Platelet mean volume (Bld) [Entitic vol] 7.4 fL Normal 6.4-10.8 [facility] Comment on above: Performed By: #### 2 [id number] #### [facility] [address] [place] [address] Platelets (Bld) [#/Vol] 183.0 E9/L Normal 150. 0-500. 0 [facility] Comment on above: Performed By: #### 2 298720 #### [facility] [address] [place] [address] RBC (Bld) [#/Vol] 3.7 E12/L Low 4.3-5.9 [facility] Comment on above: Performed By: #### 2 856215 #### [facility] [address] [place] [address] RBC size Nom (Bld) NORMAL Invalid Interpretation Code [facility] Comment on above: Performed By: #### 2 [id number] #### [facility] [address] [place] [address] WBC corrected for nucl RBC Auto (Bld) [#/Vol] 5.4 E9/L Normal 4.0-11.0 [facility] Comment on above: Performed By: #### 2 035743 #### [facility] [address] [place] [address] CHEMISTRYOrdered By: SYSTEM SYSTEM on 11-03-2024 Anion [...] time unless symptoms worsen. Where: [address] [place] [address]- Business (1) Follow Up with Shashi De Souza When: Comments: f/u3wks ok shower and remove dressing [id number] no lift>5lbs keep incis dry clean. restart coumadin 3 days after surgery. 11-05-Wednesday. Where: [address] [facility], [address] [place] [phone] Business (1) Medications What How Much When Why Instructions Next Dose New acetaminophen-oxycodone (Percocet 5 mg-325 mg oral tablet) 1 Tablets By Mouth 3 times a day as needed for Pain 4-7 Lumbar stenosis Duration: 7 Days Pickup at [facility]/pharmacy #[id number] as needed for pain Changed warfarin (warfarin [...] (at bedtime) 11/03 @ 9pm Pharmacy Information [facility]/pharmacy #[id number]: [address], [place] [phone] Test Results CBC BMP WBC: 5.4 E9/L [...] Education Materials (more content not included)... Normal [facility] HEMATOLOGYOrdered By: SYSTEM SYSTEM on 11-03-2024 [...] Robb e Manageron 11-03-2024 Interdisciplinary Note - Improvement Nurse Interdisciplinary Note - Improvement Nurse CRM to room 303 Patient is awake, [...] contact, white board updated. CRM following Normal [facility] Comment on above: Result Comment: Elec tronically Signed By: Christal Chapman\.br\Date and Time Signed: 11/03/24 10:51 EST Interdisciplinary Note - Gila n 11-03-2024 Interdisciplinary Note - OT Interdisciplinary Note - OT Ot [facility] six clicks score = no further OT needs. Patient is modified Ind w/ LE self care after instruction, Sup with transfers w/ fww. Pt has spouse support at home and will be safe to return home when medically stable. Pt has all necessary bathroom dme already in place. Normal [facility] Magnesiumon 11-03-2024 Magnesium [Mass/Vol] 1.8 mg/dL Normal 1.3-2.4 [facility] Comment on above: Performed By: #### 2 [id number] #### [facility] [address] [place] [address] Phosphoruson 11-03-2024 Phosphate [Mass/Vol] 3.1 mg/dL Normal 1.9-4.6 [facility] Comment on above: Performed By: #### 2 [id number] #### [facility] [address] [place] [address] XR Spine Single View Specify Levelon 11-03-2024 [...] = na Fluoro Time: 26 seconds Normal [facility] eGFRon 11-03-2024 eGFR 33 mL/min/1.73 m2 Low >=59 [facility] Comment on above: Performed By: #### 1 [id number] #### [facility] [address] [place] [address] ABO/Rhon 11-02-2024 ABO/Rh Positive Invalid Interpretation Code [facility] Comment on above: Performed By: #### 2 [id number] #### [facility] [address] [place] [address] ABO/Rh History Checkon 11-02 ABO/Rh History Check Verified Hx Blood Type Normal [facility] Comment on above: Performed By: #### 1 [id number] #### [facility] [address] [place] [address] ABSCon 11-02-2024 ABSC Gel Interp Negative Normal [facility] Comment on above: Performed By: #### 1 [id number] #### [facility] [address] [place] [address] BLOOD BANKOrdered By: Ericka Srinivasan on 11-02-2024 ABO/Rh Interp Positive Invalid Interpretation Code [facility] BB Subsection ABSC Gel Interp Negative (11/02/24 11:08 AM) Normal [facility] BB Subsection Blood Bank ID#on 11-02-2024 BBID# [id number] Invalid Interpretation Code [facility] Comment on above: Performed By: #### 1 [id number] #### [facility] [address] [place] [address] COAGULATIONOrdered By: Krish Srinivasan on 11-02-2024 aPTT Coag (PPP) [Time] 43.4 s High 25.1 - 36.5 second(s) [facility] Auto Coag Comment on above: Interpretive Data: [...] the same coagulation reagent and instrumentation as [facility]. Currently there are no coagulation studies available worldwide for children to 14 days, and no normal ranges. Heparin therapeutic range (represented by Anti-Factor Xa activity of 0.2 - 0.4 U/mL) corresponds to PTT of 56.6 - 109.0 sec. INR Coag (PPP) [Relative time] 1.26 {INR} Invalid Interpretation Code [facility] Auto Coag Comment on above: Interpretive Data: I NR results are specifically intended to assess patients stabilized on long-term Anticoagulation therapy suggested INR s Less Intensive Anticoagulation 2.0 3.0 Conventional Range 3.0 4.5 PT Coag (PPP) [Time] 14.1 s High 9.4 - 1 2.5 second(s) [facility] Auto Coag Comment on above: Interpretive Data: [...] the same coagulation reagent and instrumentation as [facility]. Currently there are no coagulation studies available worldwide for children to 14 days, and no normal ranges. Inpatient Patient Summaryon 11-02-2024 Inpatient Patient Summary Inpatient Patient Summary [address] [address] [facility] Clinical Discharge Instructions PERSON INFORMATION Name: CASSI RODRIGEZ PHYSICIANS Admitting Physician: Shashi De Souza MD Attending Physician: Shashi De Souza MD PCP: BRODERICK HOWARD DO Discharge Diagnosis: Comment: PATIENT EDUCATION INFORMATION Instructions: Medication Leaflets: Follow up: With: Address: When: Shashi De Souza [address] [facility], [address] [place] [phone] Business (1) Comments: f/u3wks ok shower and remove dressing [id number] no lift>5lbs keep incis dry clean. restart coumadin 3 days after surgery. 11-05-Wednesday. MEDICATION LIST New Medications [id number], [address], [place] [id number], [phone] acetaminophen-oxycodone (Percocet 5 mg-325 mg oral tablet) [...] 6 days of the week. Comment: Gerald [facility] Main OR Intraoperative Recor don 11-02-2024 Main OR Intraoperative Record Main OR Intraoperative Record IntraOp Document Type FT Summary Primary Physician: Shashi De Souza MD Finalized Date/Time: 11/02/24 15:52:16 Pt. Name: CASSI RODRIGEZ DEVAN Mccormack./Sex: 1950 Female Med Rec #: [id number] Physician: Shashi De Souza MD Financial #: [id number] Pt. Type: A Room/Bed: [facility] Admit/Disch: 11/02/24 10:13:03 - Institution: Case [...] Role Performed CARLOS ALBERTO Surgeon - Primary Yard Hand - Primary Time In 11/02/24 14:07:00 11/02/24 [...] Stewart, Katy Role Performed Scrub - Primary RESIDENCE SUPERVISOR Manager Resource Time In 11/02/24 14:07:00 11/02/24 14:07:00 11/02/24 14:07:00 Time Out 11/02/24 15:48:00 11/02/24 15:48:00 11/02/24 15:48:00 Procedure LUMBAR LAMINECTOMY LUMBAR LAMINECTOMY LUMBAR LAMINECTOMY POSS. FUSION(.) POSS. FUSION(.) POSS. FUSION(.) Comments Last Modified By: Renetta Melendez Kelsie E Burgderfer, Kelsie E 11/02/24 15:51:39 11/02/24 15:51:39 11/02/24 15:51:39 Entry 7 Entry 8 Case Attendee Jin Presley Ii, Robert David Role Performed Staff - Other Anesthesiologist Irish Moss Bleacher Time In 11/02/24 14:07:00 11/02/24 14:53:00 Time [...] Post-Care Text: (more content not included)... Normal [facility] Main OR PACU I Recordon 10-15 Main OR PACU I Record Main OR PACU I Rec ord PACU Phase I Document Type FT Summary Primary Physician: Shashi De Souza MD Finalized Date/Time: 11/02/24 16:45:46 Pt. Name: CASSI RODRIGEZ/Sex: 1950 Female Med Rec #: [id number] Physician: Shashi De Souza MD Financial #: [id number] Pt. Type: A Room/Bed: [place] [address] Admit/Disch: 11/02/24 10:13:03 - Institution: Case Times [...] By: Josefina Tim RN 11/02/24 16:45 Normal [facility] Main OR Preoperative Recordo n 11-02-2024 Main OR Preoperative Record Main OR Preoperative Record PreOp Document Type FT Summary Primary Physician: Shashi De Souza MD Finalized Date/Time: 11/02/24 14:42:51 Pt. Name: CASSI RODRIGEZ /Sex: 1950 Female Med Rec #: [id number] Physician: Shashi De Souza MD Financial #: [id number] Pt. Type: A Room/Bed: [facility] Admit/Disch: 11/02/24 10:13:03 - Institution: Case [...] 11/02/24 14:42 Renetta Melendez 11/02/24 14:42 Normal [facility] Operative Reporton Operative Report Operative Report [...] have unintended errors. Anesthesia type: General. Normal [facility] Comment on above: Result Comment: Elec tronically Signed By: Shashi De Souza MD\.br\Date and Time Signed: 11/02/24 15:54 EST Outpatient Surgery Discharge Instructionon 11-02-2024 Outpatient Surgery Discharge Instruction Outpatient Surgery Discharge Instruction [place] [id number] Patient Discharge Instructions PERSON INFORMATION Name: CASSI [...] up: With: Address: When: Shashi De Souza [address] [facility], [address] [place] [phone] Business (1) Comments: f/u3wks ok shower and remove dressing [id number] no lift>5lbs keep incis dry clean. restart [...] to serve you. Thank you for choosing [facility] HERE ARE THE MEDICATION CHANGES THAT OCCURRED DURING YOUR HOSPITAL STAY New Medications [id number], [address], [place] [phone], [phone] acetaminophen-oxycodone (Percocet 5 mg-325 mg oral tablet) [...] PATIENT EDUCATION INFORMATION Instructions: Medication Leaflets: Normal [facility] PT & PTTon 11-02-2024 aPTT Coag (PPP) [Time] 43.4 second(s) High 25.1-36.5 [facility] Comment on above: Result Comment: Para [...] the same coagulation reagent and instrumentation as [facility]. Currently there are no coagulation studies available worldwide for children to 14 days, and no normal ranges. Heparin therapeutic range (represented by Anti-Factor Xa activity of 0.2 - 0.4 U/mL) corresponds to PTT of 56.6 - 109.0 sec. Performed By: #### 1 [id number] #### [facility] [address] [place] [address] INR Coag (PPP) [Relative time] 1.26 {INR} Invalid Interpretation Code [facility] Comment on above: Result Comment: INR results are specifically intended to assess patients stabilized on long-term Anticoagulation therapy suggested INR???s ???Less Intensive Anticoagulation??? 2.0 ??? 3.0 Conventional Range 3.0 ??? 4.5 Performed By: #### 1 [id number] #### [facility] [address] [place] [address] PT Coag (PPP) [Time] 14.1 second(s) High 9.4-12.5 [facility] Comment on above: Result Comment: 15 [...] the same coagulation reagent and instrumentation as [facility]. Currently there are no coagulation studies available worldwide for children to 14 days, and no normal ranges. Performed By: #### 1 [id number] #### [facility] [address] [place] [address] Patient Education - Texton 1 01-03-2024 Patient Education - Text Patient Education - Text Normal [facility] ABO/Rh Retypeon 10-25-2024 ABO/Rh Retype Interp Positive Invalid Interpretation Code [facility] Comment on above: Performed By: #### 1 [id number] #### [facility] [address] [place] [address] BMPon 10-25-2024 Anion gap [Moles/Vol] 11 mmol/L Normal 6-16 [facility] Comment on above: Performed By: #### 2 [id number] #### [facility] [address] [place] [address] Calcium [Mass/Vol] 8.7 mg/dL Low 8.9-11.1 [facility] Comment on above: Performed By: #### 2 [id number] #### [facility] [address] [place] [address] Chloride [Moles/Vol] 109 mmol/L Normal 101-111 [facility] Comment on above: Performed By: #### 2 [id number] #### [facility] [address] [place] [address] CO2 [Moles/Vol] 25 mmol/L Normal 21-31 [facility] Comment on above: Performed By: #### 2 [id number] #### [facility] [address] [place] [address] Creatinine [Mass/Vol] 1.7 mg/dL High 0.5-1.3 [facility] Comment on above: Performed By: #### 2 073366 #### [facility] [address] [place] [address] Glucose [Mass/Vol] 104 mg/dL Normal 55-199 [facility] Comment on above: Performed By: #### 2 [id number] #### [facility] [address] [place] [address] Potassium [Moles/Vol] 4.8 mmol/L Normal 3.5-5.3 [facility] Comment on above: Performed By: #### 2 790020 #### [facility] [address] [place] [address] Sodium [Moles/Vol] 140 mmol/L Normal 135-145 [facility] Comment on above: Performed By: #### 2 [id number] #### [facility] [address] [place] [address] Urea nitrogen [Mass/Vol] 22 mg/dL High 5-21 [facility] Comment on above: Performed By: #### 2 [id number] #### [facility] [address] [place] [address] Urea nitrogen/Creatinine [Mass ratio] 13 No Units Normal 10-20 [facility] Comment on above: Performed By: #### 2 [id number] #### [facility] [address] [place] [address] CBC w/ Auto Diffon 4 Basophils/100 WBC (Bld) 0.6 % Normal 0.0-2.0 F [facility] Comment on above: Performed By: #### 2 [id number] #### [facility] [address] [place] [address] Basophils/Leukocytes Auto (Bld) [Pure # fraction] 0.0 E9/L Normal 0.0-0.2 [facility] Comment on above: Performed By: #### 2 [id number] #### [facility] [address] [place] [address] Eosinophils (Bld) [#/Vol] 0.3 E9/L Normal 0.0-0.5 [facility] Comment on above: Performed By: #### 2 [id number] #### [facility] [address] [place] [address] Eosinophils/100 WBC (Bld) 6.0 % Normal 0.0-8.0 [facility] Comment on above: Performed By: #### 2 [id number] #### [facility] [address] [place] [address] Erythrocyte distribution width (RBC) [Ratio] 14.1 % Normal 10.9-14.2 [facility] Comment on above: Performed By: #### 2 [id number] #### [facility] [address] [place] [address] Hematocrit (Bld) [Volume fraction] 36.8 % Normal 34.0-46.0 [facility] Comment on above: Performed By: #### 2 [id number] #### [facility] [address] [place] [address] Hemoglobin (Bld) [Mass/Vol] 12.4 g/dL Normal 12.0-16.0 [facility] Comment on above: Performed By: #### 2 444508 #### [facility] [address] [place] [address] Lymphocytes (Bld) [#/Vol] 0.7 E9/L Low 1.0-4.0 [facility] Comment on above: Performed By: #### 2 420295 #### [facility] [address] [place] [address] Lymphocytes/100 WBC (Bld) 15.2 % Normal 14.0-50.0 [facility] Comment on above: Performed By: #### 2 901807 #### [facility] [address] [place] [address] MCH (RBC) [Entitic mass] 31.4 pg Normal 27.0-34.0 [facility] Comment on above: Performed By: #### 2 [id number] #### [facility] [address] [place] [address] MCHC (RBC) [Mass/Vol] 33.8 g/dL Normal 31.4-36.0 [facility] Comment on above: Performed By: #### 2 808161 #### [facility] [address] [place] [address] MCV (RBC) [Entitic vol] 93.0 fL Normal 80.0-100.0 [facility] Comment on above: Performed By: #### 2 [id number] #### [facility] [address] [place] [address] Monocytes (Bld) [#/Vol] 0.3 E9/L Normal 0.2-1.0 [facility] Comment on above: Performed By: #### 2 [id number] #### [facility] [address] [place] [address] Neutrophils (Bld) [#/Vol] 3.4 E9/L Normal 2.0-7.5 [facility] Comment on above: Performed By: #### 2 [id number] #### [facility] [address] [place] [address] Neutrophils/100 WBC (Bld) 71.7 % Normal 36.0-75.0 [facility] Comment on above: Performed By: #### 2 [id number] #### [facility] [address] [place] [address] Platelet 228.0 E9/L Normal 150.0-500. 0 [facility] Comment on above: Performed By: #### 2 [id number] #### [facility] [address] [place] [address] Platelet mean volume (Bld) [Entitic vol] 7.4 fL Normal 6.4-10.8 [facility] Comment on above: Performed By: #### 2 [id number] #### [facility] [address] [place] [address] RBC (Bld) [#/Vol] 4.0 E12/L Low 4.3-5.9 [facility] Comment on above: Performed By: #### 2 [id number] #### [facility] [address] [place] [address] WBC corrected for nucl RBC Auto (Bld) [#/Vol] 4.7 E9/L Normal 4.0-11.0 [facility] Comment on above: Performed By: #### 2 [id number] #### [facility] [address] [place] [address] CT Spine Lumbar w/o Contrast on 10-25-2024 [...] MD Transcribed by: CLINTON Technologist: COCO Normal [facility] Plt Function Assayon 024 Platelet function (closure time) collagen+EPINEPHrine induced (Bld) [Time] 78 second(s) Normal 70-138 [facility] Comment on above: Result Comment: Norm al ASA vWD Glansanchezmann???s Thrombasthenia ------- ------ ------- COL/EPI Normal Abnormal Abnormal Abnormal Col/ADP Normal Normal Abnormal Abnormal Performed By: #### 1 [id number] #### [facility] [address] [place] [address] UA with Cult Rflxon 10-25-20 24 Bilirubin Ql (U) Negative Normal Negative [facility] Comment on above: Performed By: #### 4 [id number] #### [facility] [address] [place] [address] Clarity (U) Clear Normal Clear [facility] Comment on above: Performed By: #### 4 [id number] #### [facility] [address] [place] [address] Color (U) Light-Yellow Normal Yellow [facility] Comment on above: Result Comment: Micr oscopic readings are only performed on those samples that meet specific criteria set forth by [facility]. Performed By: #### 4 [id number] #### [facility] [address] [place] [address] Glucose Ql (U) Negative Normal Negative [facility] Comment on above: Performed By: #### 4 [id number] #### [facility] [address] [place] [address] Hemoglobin Auto test strip (U) [Mass/Vol] Negative Normal Negative [facility] Comment on above: Performed By: #### 4 [id number] #### [facility] [address] [place] [address] Ketones Auto test strip Ql (U) Negative Normal Negative [facility] Comment on above: Performed By: #### 4 [id number] #### [facility] [address] [place] [address] Leukocyte esterase Auto test strip Ql (U) Negative Normal Negative [facility] Comment on above: Performed By: #### 4 [id number] #### [facility] [address] [place] [address] Nitrite Auto test strip Ql (U) Negative Normal Negative [facility] Comment on above: Performed By: #### 4 [id number] #### [facility] [address] [place] [address] pH (U) 5.5 [pH] Invalid Interpretation Code 5.0-9.0 [facility] Comment on above: Performed By: #### 4 [id number] #### [facility] [address] [place] [address] Protein Ql (U) Negative Normal Negative [facility] Comment on above: Performed By: #### 4 [id number] #### [facility] [address] [place] [address] Specific gravity (U) [Rel density] 1.018 Invalid Interpretation Code 1.005-1.03 0 [facility] Comment on above: Performed By: #### 4 [id number] #### [facility] [address] [place] [address] Urobilinogen (U) [Mass/Vol] Negative Normal Negative [facility] Comment on above: Performed By: #### 4 [id number] #### [facility] [address] [place] [address] Type of Urine collection method Clean Catch Normal [facility] Comment on above: Performed By: #### 4 [id number] #### [facility] [address] [place] [address] XR Chest 2 Viewson XR Chest 2 [...] mGy = . DAP = . Normal [facility] eGFRon 10-25-2024 eGFR 31 mL/min/1.73 m2 Low >=59 [facility] Comment on above: Performed By: #### 1 [id number] #### [facility] [address] [place] [address] ECHOon 10-02-2024 Echocardiography Echocardiography Rep ort: Transthoracic Echo [facility] Date of service: 10/02/2024 2:44:31 PM DATA PLATFORM ARCHITECT Ordering physician: KITTY MILLARD Indication: Evaluation of device (pacemaker, ICD, or SAMPLE GRINDER) after revascularization Technologist: Iwona HUANG Interpreting physician: [...] indication: Evaluation of device (pacemaker, ICD, or SAMPLE GRINDER) after revascularization - The left ventricle is [...] * * * Final * * * [employer] Medical Image : [id number] Normal [facility] CNOVon 09-05-2024 CNOV Office Visit (NEADFV ) -- CASSI RODRIGEZ ([id number]) 1950 F Date Time Provider Department 09/05/24 [...] Jewell RN Botox, 2 vials: Lot # [id number] Exp 10/2026 Lot # [id number] Exp 10/[address] Reilly to administer and verified order. Randa Reilly MD 09/05/2024 1:54 PM Signed PROGRESS NOTE- HEADACHE MEDICINE SERVICE DATE: September 05, 2024 Location: [facility] neurological [place] Participants: patient, and provider HPI: Here for [...] 3.Referral to sleep medicine Randa Reilly MD [facility] [place] Randa Reilly MD 09/05/2024 1:54 PM Signed [...] Injection Sites Muscle Fixed Site/Fixed Dose Bilat Director Of Corporate Sales 20 U divided in 2 sites Procerus [...] Total Units wasted: 0 Randa Reilly MD [facility] [place] R (more content not included)... Normal [facility] ECG COMPLETEon 09-01-2024 Atrial Rate 81 BPM [facility] Calculated P Canvas 74 degrees [facility] Calculated R Canvas 73 degrees [facility] Calculated T Canvas 67 degrees [facility] P-R Interval 186 ms [facility] QRS Duration 80 ms [facility] QT Interval 386 ms [facility] QTC Calculation (Bazett) 448 ms [facility] Ventricular Rate 81 BPM [facility] ATRIAL-PACED RHYTHM LOW VOLTAGE QRS, CONSIDER PULMONARY DISEASE, PERICARDIAL EFFUSION, OR NORMAL VARIANT ABNORMAL ECG Confirmed by JONATHAN TELLEZ MD ([id number]) on 09/01/2024 1:53:38 PM [facility] NAME : CASSI RODRIGEZ PID : [id number] : 1950 Gender : Female Race : [...] by : , [facility] CNOVon 08-31-2024 CNOV Office Visit (CAEPAV ) -- CASSI RODRIGEZ ([id number]) 1950 F Date Time Provider Department 08/31/24 10:00 AM KITTY VALENTE During your visit today, we recorded the following information about you: Pulse Blood pressure Weight Height 81/minute 134/72 88 kg 1.575 m Kitty Valente MD 09/02/2024 12:42 AM Signed [facility] [place] Guy Renteria Department of Cardiovascular Medicine SECTION OF CARDIAC PACING and ELECTROPHYSIOLOGY OUTPATIENT VISIT DATE NASRIN July 23, 2022 August 31, 2024 OUTPATIENT VISIT TYPE ESTABLISHED PRIMARY CARE PHYSICIAN: Broderick Howard MD ([facility]) [address] [place] [address] CHIEF COMPLAINT: Pacemaker management HISTORY OF PRESENT [...] Review of (more content not included)... Normal [facility] [id number] 08-31-2024 ECG01 Ventricular Rate : 8 1 BPM Atrial Rate : 81 BPM P-R Interval : 186 ms QRS Duration : 80 ms Q-T Interval : 386 ms QTC Calculation(Bazett) : 448 ms Calculated P Canvas : 74 degrees Calculated R Canvas : 73 degrees Calculated T Canvas : 67 degrees ATRIAL-PACED RHYTHM LOW VOLTAGE QRS, CONSIDER PULMONARY DISEASE, PERICARDIAL EFFUSION, OR NORMAL VARIANT ABNORMAL ECG Confirmed by JONATHAN TELLEZ MD ([id number]) on 09/01/2024 1:53:38 PM NAME : CASSI RODRIGEZ PID : [id number] : 1950 Gender : Female Race : [...] : , Acquired by : , Normal [facility] Erythrocyte distribution wid th Auto (RBC) [Ratio]on 08-28-2024 Erythrocyte distribution width (RBC) [Ratio] 13.0 % .0-15.0 [facility] Erythrocyte distribution width (RBC) [Ratio] Erythrocyte distribution width [Ratio] by Automated count .-15.0 [facility] Estimated glomerular filtrat ion rate (GFR) non- Americanon 08-28-2024 GFR/1.73 sq M.predicted among non-blacks MDRD (S/P/Bld) [Vol rate/Area] 26 mL/min/{1.73_m2} Low >=60 mL/min/1.7 3m 2 [facility] GFR/1.73 sq M.predicted among non-blacks MDRD (S/P/Bld) [Vol rate/Area] Estimated glomerular filtration rate (GFR) non- Low >=60 mL/min/1.7 3m 2 [facility] Hematocrit Auto (Bld) [Volum e fraction]on 08-28-2024 Hematocrit (Bld) [Volume fraction] 37.4 % 36.0-48.0 [facility] Hematocrit (Bld) [Volume fraction] Hematocrit [Volume Fraction] of Blood by Automated count 36.0-48.0 [facility] Hemoglobin [Mass/volume] in Bloodon 08-28-2024 Hemoglobin (Bld) [Mass/Vol] 11.8 g/dL Low 12.0-16.0 [facility] Hemoglobin (Bld) [Mass/Vol] Hemoglobin [Mass/volume] in Blood Low 12.0-16.0 [facility] Iron binding capacity [Mass/ volume] in Serum or Plasmaon 08-28-2024 Iron binding capacity [Mass/Vol] 356.0 ug/dL 250.0-450. 0 [facility] Iron binding capacity [Mass/Vol] Iron binding capacity [Mass/volume] in Serum or Plasma 250.0-450. 0 [facility] Iron saturation [Mass Fracti on] in Serum or Plasmaon 08-28-2024 Iron saturation [Mass fraction] 14.3 % [facility] Iron saturation [Mass fraction] Iron saturation [Mass Fraction] in Serum or Plasma [facility] Laboratory - Chemistry and C hemistry - challengeon 08-28-2024 Albumin [Mass/Vol] 3.3 g/dL Low 3.4-5.0 [facility] Calcium [Mass/Vol] 8.6 mg/dL 8.5-10.1 [facility] Chloride [Moles/Vol] 108 mmol/L High 98-107 [facility] CO2 [Moles/Vol] 21.8 mmol/L 21.0-32.0 [facility] Creatinine [Mass/Vol] 1.91 mg/dL High 0.55-1.[address] [facility] Ferritin [Mass/Vol] 15.0 ng/mL 8.0-252.0 [facility] GFR/1.73 sq M.predicted MDRD (S/P/Bld) [Vol rate/Area] 31 mL/min/{1.73_m2} Low >=60 mL/min/1.7 3m 2 [facility] Glucose [Mass/Vol] 135 mg/dL High 74-106 [facility] Iron [Mass/Vol] 51.0 ug/dL 50.0-170.0 [facility] Magnesium [Mass/Vol] 2.0 mg/dL 1.8-2.4 [facility] Potassium [Moles/Vol] 4.0 mmol/L 3.5-5.[address] [facility] Sodium [Moles/Vol] 142 mmol/L 136-145 [facility] Urate [Mass/Vol] 5.0 mg/dL 2.6-6.0 [facility] Urea nitrogen [Mass/Vol] 24.0 mg/dL High 7.0-18.0 [facility] Urea nitrogen/Creatinine [Mass ratio] 12.6 mg/mg [facility] Bilirubin Ql (U) Negative NEGATIVE [facility] Glucose (U) [Mass/Vol] Negative NEGATIVE [facility] Ketones Ql (U) Negative NEGATIVE [facility] pH (U) 5.5 [pH] 5.0-9.0 [facility] Specific gravity (U) [Rel density] 1.025 1.005-1.02 5 [facility] Urobilinogen Qn (U) 0.2 {Iln'U}/dL 0.2-1.0 [facility] Laboratory - Specimen inform ationon 08-28-2024 Appearance (U) CLEAR CLEAR [facility] Color (U) YELLOW YELLOW [facility] Laboratory - Urinalysison Leukocyte esterase Test strip Ql (U) Negative NEGATIVE [facility] Mucus Ql (Urine sed) NONE SEEN NONE SEEN [facility] Nitrite Ql (U) Negative NEGATIVE [facility] Protein (U) [Mass/Vol] 16.2 mg/dL High <=11.9 [facility] Protein Ql (U) Negative NEG/TRACE [facility] Leukocytes [#/volume] correc tanesha for nucleated erythrocytes in Blood by Automated counon 08-28-2024 WBC corrected for nucl RBC Auto (Bld) [#/Vol] 5.2 10 3/uL 4.0-11.0 [facility] WBC corrected for nucl RBC Auto (Bld) [#/Vol] Leukocytes [#/volume] corrected for nucleated erythrocytes in Blood by Automated coun 4.0-11.0 [facility] MCH Auto (RBC) [Entitic mass ]on 08-28-2024 MCH (RBC) [Entitic mass] 31.1 pg 26.7-34.0 [facility] MCH (RBC) [Entitic mass] MCH [Entitic mass] by Automated count 26.7-34.0 [facility] MCHC Auto (RBC) [Mass/Vol]on 08-28-2024 MCHC (RBC) [Mass/Vol] 31.6 g/dL 29.9-35.[address] [facility] MCHC (RBC) [Mass/Vol] MCHC [Mass/volume] by Automated count 29.9-35.2 [facility] MCV Auto (RBC) [Entitic vol] on 08-28-2024 MCV (RBC) [Entitic vol] 98.4 fL 81.0-99.0 [facility] MCV (RBC) [Entitic vol] MCV [Entitic vol ume] by Automated count 81.0-99.0 [facility] No Panel Informationon 08-28 25-Hydroxy Vitamin D Total 22.3 ng/mL [facility] Comment on above: <20 ng/mL Vit D defi cient20-<30 ng/mL Vit D [id number] ng/mL Vit D sufficient>100 ng/mL Potential Toxicity Parathyroid Hormone (Intact) 194 pg/mL Abnormal [facility] Comment on above: Performed at: [address] [id number] Director: Junaid Sawyer PhD, Phone: [phone] Phosphorus Level 3.0 mg/dL 2.6-4.7 [facility] Urine Bacteria NONE SEEN #/HPF NONE SEEN [facility] Urine Occult Blood Negative NEGATIVE [facility] Urine Other Casts NONE SEEN #/LPF NONE SEEN [facility] Urine Other Crystals None Seen #/HPF None Seen [facility] Urine Random Creatinine 137.09 mg/dL 20.0 0-300. 00 [facility] Urine RBC NONE SEEN #/HPF 0-2 [facility] Urine Squamous Epithelial Cells RARE #/LPF NONE/RARE [facility] Urine WBC 0-2 #/HPF Abnormal NONE SEEN [facility] Platelet mean volume Auto (B ld) [Entitic vol]on 08-28-2024 Platelet mean volume (Bld) [Entitic vol] 9.5 fL 9.5-13.5 [facility] Platelet mean volume (Bld) [Entitic vol] Platelet mean volume [Entitic volume] in Blood by Automated count 9.5-13.5 [facility] Platelets Auto (Bld) [#/Vol] on 08-28-2024 Platelets (Bld) [#/Vol] 219 10 3/uL 150-450 [facility] Platelets (Bld) [#/Vol] Platelets [#/vol ume] in Blood by Automated count 150-450 [facility] RBC Auto (Bld) [#/Vol]on RBC (Bld) [#/Vol] 3.80 10 6/uL Low 4.20-5.40 [facility] RBC (Bld) [#/Vol] Erythrocytes [#/volu me] in Blood by Automated count Low 4.20-5.40 [facility] Serum or plasma anion gap de terminationon 08-28-2024 Anion gap [Moles/Vol] 16.2 mmol/L [facility] Anion gap [Moles/Vol] Serum or plasma an ion gap determination [facility] Urine protein/creatinine rat ioon 08-28-2024 Protein/Creatinine (U) [Ratio] 0.12 [facility] Protein/Creatinine (U) [Ratio] Urine protein/creatinine ratio [facility] Basophils Auto (Bld) [#/Vol] on 07-05-2024 Basophils (Bld) [#/Vol] 0.0 10 3/uL 0.0-0.1 [facility] Basophils/100 WBC Auto (Bld) on 07-05-2024 Basophils/100 WBC (Bld) 0.7 % 0.2-2.0 F [facility] Eosinophils/100 WBC Auto (Bl d)on 07-05-2024 Eosinophils/100 WBC (Bld) 4.2 % 0.9-7.0 [facility] Erythrocyte distribution wid th Auto (RBC) [Ratio]on 07-05-2024 Erythrocyte distribution width (RBC) [Ratio] 14.9 % 11.0-15.0 [facility] Hematocrit Auto (Bld) [Volum e fraction]on 07-05-2024 Hematocrit (Bld) [Volume fraction] 36.5 % 36.0-48.0 [facility] Hemoglobin [Mass/volume] in Bloodon 07-05-2024 Hemoglobin (Bld) [Mass/Vol] 11.9 g/dL Low 12.0-16.0 [facility] Iron binding capacity [Mass/ volume] in Serum or Plasmaon 07-05-2024 Iron binding capacity [Mass/Vol] 344.0 ug/dL 250.0-450. 0 [facility] Iron saturation [Mass Fracti on] in Serum or Plasmaon 07-05-2024 Iron saturation [Mass fraction] 18.9 % [facility] Laboratory - Chemistry and C hemistry - challengeon 07-05-2024 Cobalamin (Vitamin B12) [Mass/Vol] 400.0 pg/mL 193.0-986. 0 [facility] Ferritin [Mass/Vol] 24.0 ng/mL 8.0-252.0 [facility] Iron [Mass/Vol] 65.0 ug/dL 50.0-170.0 [facility] Laboratory - Hematology and Cell countson 07-05-2024 Immature granulocytes/100 WBC (Bld) 0.6 % High 0.0-0.5 [facility] Leukocytes [#/volume] correc tanesha for nucleated erythrocytes in Blood by Automated counon 07-05-2024 WBC corrected for nucl RBC Auto (Bld) [#/Vol] 5.4 10 3/uL 4.0-11.0 [facility] Lymphocytes Auto (Bld) [#/Vo l]on 07-05-2024 Lymphocytes (Bld) [#/Vol] 0.8 10 3/uL Low 1.2-3.8 [facility] Lymphocytes/100 WBC Auto (Bl d)on 07-05-2024 Lymphocytes/100 WBC (Bld) 14.4 % Low 20.5-60.0 [facility] MCH Auto (RBC) [Entitic mass ]on 07-05-2024 MCH (RBC) [Entitic mass] 30.8 pg 26.7-34.0 [facility] MCHC Auto (RBC) [Mass/Vol]on 07-05-2024 MCHC (RBC) [Mass/Vol] 32.6 g/dL 29.9-35.[address] [facility] MCV Auto (RBC) [Entitic vol] on 07-05-2024 MCV (RBC) [Entitic vol] 94.6 fL 81.0-99.0 F [facility] Monocytes Auto (Bld) [#/Vol] on 07-05-2024 Monocytes (Bld) [#/Vol] 0.4 10 3/uL 0.3-0.8 [facility] Monocytes/100 WBC Auto (Bld) on 07-05-2024 Monocytes/100 WBC (Bld) 6.5 % 1.7-12.0 F [facility] Neutrophils Auto (Bld) [#/Vo l]on 07-05-2024 Neutrophils (Bld) [#/Vol] 4.0 10 3/uL 1.4-6.5 [facility] Neutrophils/100 WBC Auto (Bl d)on 07-05-2024 Neutrophils/100 WBC (Bld) 73.6 % 43.0-75.0 [facility] No Panel Informationon 07-05 Add Manual Differential See comment [facility] Comment on above: SEE SCANNED REPORT Eosinophils # (Auto) 0.2 10 3/uL 0.0-0.[address] [facility] Folate 10.80 ng/mL 8.60-58.90 [facility] Immature Granulocyte # (Auto) 0.03 10 3/uL 0.00-0.03 [facility] Platelet mean volume Auto (B ld) [Entitic vol]on 07-05-2024 Platelet mean volume (Bld) [Entitic vol] 9.4 fL Low 9.5-13.5 [facility] Platelets Auto (Bld) [#/Vol] on 07-05-2024 Platelets (Bld) [#/Vol] 180 10 3/uL 150-450 [facility] RBC Auto (Bld) [#/Vol]on RBC (Bld) [#/Vol] 3.86 10 6/uL Low 4.20-5.40 [facility] Comprehensive metabolic 2000 panelon 06-29-2024 Albumin [Mass/Vol] 4.3 g/dL 3.9 - 4.9 g/dL [facility] ALP [Catalytic activity/Vol] 170 U/L High 34 - 123 U/L [facility] ALT [Catalytic activity/Vol] 28 U/L 7 - 38 U/L [facility] Anion gap [Moles/Vol] 8 mmol/L 8 - 15 mmol/L [facility] AST [Catalytic activity/Vol] 22 U/L 13 - 35 U/L [facility] Bilirubin [Mass/Vol] 0.4 mg/dL 0.2 - 1 .3 mg/dL [facility] Calcium [Mass/Vol] 8.8 mg/dL 8.5 - 10. 2 mg/dL [facility] Chloride [Moles/Vol] 109 mmol/L High 98 - 10 7 mmol/L [facility] CO2 [Moles/Vol] 24 mmol/L 22 - 30 mmol/L [facility] Creatinine [Mass/Vol] 1.73 mg/dL High 0.58 - 0.96 mg/dL [facility] GFR/1.73 sq M.predicted among non-blacks MDRD (S/P/Bld) [Vol rate/Area] 31 mL/min/{1.73_m2} Low - PINF [facility] Comment on above: Estimated Glomerular Filtration [...] 111 mg/dL High 74 - 99 mg/dL [facility] Comment on above: The [place] [employer] (ADA) provides guidance for [...] Standards of Medical Care in Diabetes 2016, [place] [employer]. Diabetes Care. 2016.39(Suppl 1). Interpretation and review of laboratory results Abnormal [facility] Potassium [Moles/Vol] 5.1 mmol/L 3.7 - 5.1 mmol/L [facility] Protein [Mass/Vol] 7.0 g/dL 6.3 - 8.0 g/dL [facility] Sodium [Moles/Vol] 141 mmol/L 136 - 144 mmol/L [facility] Urea nitrogen [Mass/Vol] 34 mg/dL High 7 - 21 mg/dL [facility] LEVETIRACETAMon 06-29-2024 levETIRAcetam [Mass/Vol] 59.9 ug/mL High 12.0 - 46.0 ug/mL [facility] Comment on above: This test is [...] developed and its performance characteristics determined by [facility]'s [facility] Pathology and Laboratory Medicine [place] ([facility]). It has not been cleared or approved by the FDA. [facility] is regulated under CLIA as qualified to perform high-complexity testing. This test is used for clinical purposes. It should not be regarded as investigational or for research. Laboratory - Chemistry and C hemistry - challengeon 06-29-2024 Albumin [Mass/Vol] 4.3 g/dL 3.9-4.9 [facility] ALP [Catalytic activity/Vol] 170 U/L High 34-123 [facility] ALT [Catalytic activity/Vol] 28 U/L 7-38 [facility] AST [Catalytic activity/Vol] 22 U/L 13-35 [facility] Bilirubin [Mass/Vol] 0.4 mg/dL 0.2-1.3 [facility] Calcium [Mass/Vol] 8.8 mg/dL 8.5-10.2 [facility] Chloride [Moles/Vol] 109 mmol/L High 98-107 [facility] CO2 [Moles/Vol] 24 mmol/L 22-30 [facility] Creatinine [Mass/Vol] 1.73 mg/dL High 0.58-0.[address] [facility] Glucose [Mass/Vol] 111 mg/dL High 74-99 [facility] Comment on above: The [place] Di[employer] Association (ADA) provides guidance for [...] Standards of Medical Care in Diabetes 2016, [place] [employer]. Diabetes Care. 2016.39(Suppl 1). Potassium [Moles/Vol] 5.1 mmol/L 3.7-5.[address] [facility] Sodium [Moles/Vol] 141 mmol/L 136-144 [facility] Urea nitrogen [Mass/Vol] 34 mg/dL High 7-21 [facility] No Panel Informationon 06-29 Estimated GFR (CKD-EPI) 31 mL/min/1.73m??? Low >=60 [facility] Comment on above: Estimated Glomerular Filtration Rate [...] Levetiracetam (Keppra) Level 59.9 ug/mL High 12.0-46.0 [facility] Comment on above: This test is not [...] developed and its performance characteristics determined by [facility]'s [facility] Pathology and Laboratory Medicine [place] ([facility]). It has not been cleared or approved by the FDA. -[facility] is regulated under CLIA as qualified to perform high-complexity testing. This test is used for clinical purposes. It should not be regarded as investigational or for research. Protein [Mass/volume] in Ser um or Plasmaon 06-29-2024 Protein [Mass/Vol] 7.0 g/dL 6.3-8.0 [facility] Serum or plasma anion gap de terminationon 06-29-2024 Anion gap [Moles/Vol] 8 mmol/L 06-[address] [facility] levETIRAcetam [Mass/Vol]on 0 06-29-2024 Interpretation and review of laboratory results Abnormal [facility] INR in Platelet poor plasma by Coagulation assayon 06-05-2024 INR Coag (PPP) [Relative time] 2.29 {INR} [facility] Comment on above: DESIRED INR:2.0-3.0 CONDITIONS NOT LISTED BELOW2.5-3.5 FOR PROSTHETIC HEART VALVE REPLACEMENT2.5-3.5 RECURRENT THROMBOSIS Prothrombin time (PT)on 05-16 PT Coag (PPP) [Time] 22.4 s High 9.0-11.6 [facility] Creatinine (Bld) [Mass/Vol]O rdered By: David Mcfadden on 05-30-2024 Creatinine [Mass/Vol] 1.8 mg/dL High 0.6-1.[address] [facility] Comment on above: ER/ESD physician is notified/shown all ISTAT results.Critical values may be confirmed by laboratory testing ifdeemed necessary by ER attending doctor. No Panel InformationOrdered By: David Mcfadden on 05-30-2024 Bedside Estimated GFR (eGFR) 29.200 [facility] INR in Platelet poor plasma by Coagulation assayon 05-15-2024 INR Coag (PPP) [Relative time] 2.71 {INR} [facility] Comment on above: DESIRED INR:2.0-3.0 CONDITIONS NOT LISTED BELOW2.5-3.5 FOR PROSTHETIC HEART VALVE REPLACEMENT2.5-3.5 RECURRENT THROMBOSIS Prothrombin time (PT)on PT Coag (PPP) [Time] 26.0 s High 9.0-11.6 [facility] Basophils Auto (Bld) [#/Vol] on 05-05-2024 Basophils (Bld) [#/Vol] 0.0 10 3/uL 0.0-0.1 [facility] Basophils/100 WBC Auto (Bld) on 05-05-2024 Basophils/100 WBC (Bld) 1.1 % 0.2-2.0 [facility] Eosinophils/100 WBC Auto (Bl d)on 05-05-2024 Eosinophils/100 WBC (Bld) 6.9 % 0.9-7.0 [facility] Erythrocyte distribution wid th Auto (RBC) [Ratio]on 05-05-2024 Erythrocyte distribution width (RBC) [Ratio] 13.3 % 11.0-15.0 [facility] Estimated glomerular filtrat ion rate (GFR) non- Americanon 05-05-2024 GFR/1.73 sq M.predicted among non-blacks MDRD (S/P/Bld) [Vol rate/Area] 32 mL/min/{1.73_m2} Low >=60 [facility] Hematocrit Auto (Bld) [Volum e fraction]on 05-05-2024 Hematocrit (Bld) [Volume fraction] 35.5 % Low 36.0-48.0 [facility] Hemoglobin [Mass/volume] in Bloodon 05-05-2024 Hemoglobin (Bld) [Mass/Vol] 11.1 g/dL Low 12.0-16.0 [facility] Laboratory - Chemistry and C hemistry - challengeon 05-05-2024 Calcium [Mass/Vol] 8.4 mg/dL Low 8.5-10.1 [facility] Chloride [Moles/Vol] 108 mmol/L High 98-107 [facility] CO2 [Moles/Vol] 26.2 mmol/L 21.0-32.0 [facility] [facility] Creatinine [Mass/Vol] 1.60 mg/dL High 0.55-1.[address] [facility] GFR/1.73 sq M.predicted MDRD (S/P/Bld) [Vol rate/Area] 38 mL/min/{1.73_m2} Low >=60 [facility] Glucose [Mass/Vol] 103 mg/dL 74-106 [facility] Potassium [Moles/Vol] 4.4 mmol/L 3.5-5.[address] [facility] Sodium [Moles/Vol] 140 mmol/L 136-145 [facility] Urea nitrogen [Mass/Vol] 24.0 mg/dL High 7.0-18.0 [facility] Urea nitrogen/Creatinine [Mass ratio] 15.0 mg/mg [facility] Laboratory - Hematology and Cell countson 05-05-2024 ESR (Bld) [Velocity] 45 mm/h High <=30 [facility] Immature granulocytes/100 WBC (Bld) 0.0 % 0.0-0.5 [facility] Leukocytes [#/volume] correc tanesha for nucleated erythrocytes in Blood by Automated counon 05-05-2024 WBC corrected for nucl RBC Auto (Bld) [#/Vol] 3.8 10 3/uL Low 4.0-11.0 [facility] Lymphocytes Auto (Bld) [#/Vo l]on 05-05-2024 Lymphocytes (Bld) [#/Vol] 1.0 10 3/uL Low 1.2-3.8 [facility] Lymphocytes/100 WBC Auto (Bl d)on 05-05-2024 Lymphocytes/100 WBC (Bld) 27.1 % 20.5-60.0 [facility] MCH Auto (RBC) [Entitic mass ]on 05-05-2024 MCH (RBC) [Entitic mass] 28.8 pg 26.7-34.0 [facility] MCHC Auto (RBC) [Mass/Vol]on 05-05-2024 MCHC (RBC) [Mass/Vol] 31.3 g/dL 29.9-35.[address] [facility] MCV Auto (RBC) [Entitic vol] on 05-05-2024 MCV (RBC) [Entitic vol] 92.2 fL 81.0-99.0 [facility] Monocytes Auto (Bld) [#/Vol] on 05-05-2024 Monocytes (Bld) [#/Vol] 0.3 10 3/uL 0.3-0.8 [facility] Monocytes/100 WBC Auto (Bld) on 05-05-2024 Monocytes/100 WBC (Bld) 8.2 % 1.7-12.0 [facility] Neutrophils Auto (Bld) [#/Vo l]on 05-05-2024 Neutrophils (Bld) [#/Vol] 2.1 10 3/uL 1.4-6.5 [facility] Neutrophils/100 WBC Auto (Bl d)on 05-05-2024 Neutrophils/100 WBC (Bld) 56.7 % 43.0-75.0 [facility] No Panel Informationon 05-05 C-Reactive Protein, Quantitative <0.50 mg/dL <=0.50 [facility] Eosinophils # (Auto) 0.3 10 3/uL 0.0-0.[address] [facility] Immature Granulocyte # (Auto) 0.00 10 3/uL 0.00-0.03 [facility] Platelet mean volume Auto (B ld) [Entitic vol]on 05-05-2024 Platelet mean volume (Bld) [Entitic vol] 9.4 fL Low 9.5-13.5 [facility] Platelets Auto (Bld) [#/Vol] on 05-05-2024 Platelets (Bld) [#/Vol] 217 10 3/uL 150-450 [facility] RBC Auto (Bld) [#/Vol]on RBC (Bld) [#/Vol] 3.85 10 6/uL Low 4.20-5.40 [facility] Serum or plasma anion gap de terminationon 05-05-2024 Anion gap [Moles/Vol] 10.2 mmol/L [facility] No Panel Informationon 03-15 BLANK _ [facility] Implant Date 05/22/2015 [facility] Model 5076 CapSureFix Novus [facility] PACEMAKER REMOTE CHECKon AV Delay Adaptive Paced Minimum (ms) 180 ms [facility] AV Delay Adaptive Sensed Minimum (ms) 150 ms [facility] AV Delay Adaptive Status DISABLED [facility] Battery Voltage (volts) 2.92 V [facility] Godfrey RA Pacing Amplitude (volts) 1.5 V [facility] Godfrey RA Pacing Polarity BI [facility] Godfrey RA Pacing Pulse Width (ms) 0.4 ms [facility] Godfrey RA Sensing Amplitude (mvolts) 0.3 mV [facility] Godfrey RA Sensing Blanking Period (ms) 150 ms [facility] Godfrey RA Sensing Polarity BI [facility] Godfrey RA Sensing Refractory Period (ms) Auto [facility] Godfrey RV Pacing Amplitude (volts) 2 V [facility] Godfrey RV Pacing Polarity BI [facility] Godfrey RV Pacing Pulse Width (ms) 0.4 ms [facility] Godfrey RV Sensing Amplitude (mvolts) 0.9 mV [facility] Godfrey RV Sensing Blanking Period (ms) 200 ms [facility] Godfrey RV Sensing Polarity BI [facility] Hysteresis Rate (bpm) DISABLED [facility] Lead1 Jorge KELLER [facility] Lead2 Jorge KELLER [facility] Location RV [facility] Location RA [facility] Lower Rate (bpm) 60 {beats}/min [facility] Max Sensor Rate (bmp) 130 {beats}/min [facility] Model [id number] COBOS [facility] PM-Device Jorge KELLER [facility] PM-Percent Pacing (A) 99.48 % [facility] PM-Percent Pacing (V) 0.27 % [facility] PM-PMT Intervention ENABLED [facility] PM-PVC Intervention ENABLED [facility] PM-Rate Modulation Acceleration Reaction 30 s [facility] PM-Rate Modulation ADL Rate (bpm) 100 {beats}/min [facility] PM-Rate Modulation Deceleration Exercise [facility] PM-Rate Modulation Threshold MediumLow [facility] RA Bipolar Impedance ohms 418 ohm [facility] RA Unipolar Impedance ohms 399 ohm [facility] RV Bipolar Impedance ohms 532 ohm [facility] RV Unipolar Impedance 494 ohm [facility] Serial Number [id number] [facility] Serial Number [id number] [facility] Serial Number [id number] [facility] Thresh RA Capture Amplitude (volts) 0.5 V [facility] Thresh RA Capture Duration (ms) 0.4 ms [facility] Thresh RA Sensing Amplitude (mvolts) 3.125 mV [facility] Thresh RV Capture Amplitude (volts) 0.875 V [facility] Thresh RV Capture Duration (ms) 0.4 ms [facility] Thresh RV Sensing Amplitude (mvolts) 11.875 mV [facility] Tracking Rate (bpm) 130 {beats}/min [facility] 03/15/2024 Formattin g of this note [...] every 3 months and yearly in-clinic interrogations. Atr Case RN NOTE TO PROVIDERS: CARD Flowsheets contain detailed device programming and testing data. Paceart/Interrogation PDF can be found under CARDIAC DATA AND REPORT, Scanned Documents section. [facility] Albumin [Mass/volume] in Ser um or Plasmaon 03-03-2024 Albumin [Mass/Vol] 3.5 g/dL 2.9-4.4 [facility] Basophils Auto (Bld) [#/Vol] on 03-03-2024 Basophils (Bld) [#/Vol] 0.0 10 3/uL 0.0-0.1 [facility] Basophils/100 WBC Auto (Bld) on 03-03-2024 Basophils/100 WBC (Bld) 0.7 % 0.2-2.0 [facility] Eosinophils/100 WBC Auto (Bl d)on 03-03-2024 Eosinophils/100 WBC (Bld) 10.8 % High 0.9-7.0 [facility] Erythrocyte distribution wid th Auto (RBC) [Ratio]on 03-03-2024 Erythrocyte distribution width (RBC) [Ratio] 13.5 % 11.0-15.0 [facility] Estimated glomerular filtrat ion rate (GFR) non- Americanon 03-03-2024 GFR/1.73 sq M.predicted among non-blacks MDRD (S/P/Bld) [Vol rate/Area] 34 mL/min/{1.73_m2} Low >=60 [facility] Globulin Calc (S) [Mass/Vol] on 03-03-2024 Globulin (S) [Mass/Vol] 3.6 g/dL F [facility] Hematocrit Auto (Bld) [Volum e fraction]on 03-03-2024 Hematocrit (Bld) [Volume fraction] 38.8 % 36.0-48.0 [facility] Hemoglobin [Mass/volume] in Bloodon 03-03-2024 Hemoglobin (Bld) [Mass/Vol] 11.9 g/dL Low 12.0-16.0 [facility] IgA [Mass/volume] in Serum o r Plasmaon 03-03-2024 IgA [Mass/Vol] 265 mg/dL 64-422 [facility] IgG [Mass/volume] in Serum o r Plasmaon 03-03-2024 IgG [Mass/Vol] 911 mg/dL [phone] [facility] IgM [Mass/volume] in Serum o r Plasmaon 03-03-2024 IgM [Mass/Vol] 64 mg/dL 26-217 [facility] Immunoglobulin light chains. kappa.free [Mass/volume] in Serumon 03-03-2024 Immunoglobulin light chains.kappa.free (S) [Mass/Vol] 44.7 mg/L Abnormal 3.3-19.4 [facility] Immunoglobulin light chains. kappa.free/Immunoglobulin light chains.lambda.free [Yanelis 03-03-2024 Immunoglobulin light chains.kappa.free/Immun oglobulin light chains.lambda.free (S) [Mass ratio] 1.16 0.26-1.65 [facility] Comment on above: Performed at: [address] [id number] Director: Junaid Sawyer PhD, Phone: [phone] Immunoglobulin light chains. lambda.free [Mass/volume] in Serum or Plasmaon 03-03-2024 Immunoglobulin light chains.lambda.free [Mass/Vol] 38.7 mg/L Abnormal 5.7-26.3 [facility] Iron binding capacity [Mass/ volume] in Serum or Plasmaon 03-03-2024 Iron binding capacity [Mass/Vol] 338.0 ug/dL 250.0-450. 0 [facility] Iron saturation [Mass Fracti on] in Serum or Plasmaon 03-03-2024 Iron saturation [Mass fraction] 7.7 % [facility] Laboratory - Chemistry and C hemistry - challengeon 03-03-2024 Albumin [Mass/Vol] 3.3 g/dL Low 3.4-5.0 [facility] ALP [Catalytic activity/Vol] 155 U/L High 46-116 [facility] ALT [Catalytic activity/Vol] 21 U/L 14-59 [facility] AST [Catalytic activity/Vol] 25 U/L 15-37 [facility] Bilirubin [Mass/Vol] 0.4 mg/dL 0.2-1.0 [facility] Calcium [Mass/Vol] 9.0 mg/dL 8.5-10.1 [facility] Chloride [Moles/Vol] 106 mmol/L 98-107 [facility] CO2 [Moles/Vol] 21.4 mmol/L 21.0-32.0 [facility] Cobalamin (Vitamin B12) [Mass/Vol] 495.0 pg/mL 193.0-986. 0 [facility] Creatinine [Mass/Vol] 1.50 mg/dL High 0.55-1.[address] [facility] Ferritin [Mass/Vol] 19.0 ng/mL 8.0-252.0 [facility] GFR/1.73 sq M.predicted MDRD (S/P/Bld) [Vol rate/Area] 41 mL/min/{1.73_m2} Low >=60 [facility] Glucose [Mass/Vol] 113 mg/dL High 74-106 [facility] Iron [Mass/Vol] 26.0 ug/dL Low 50.0-170.0 [facility] Potassium [Moles/Vol] 4.3 mmol/L 3.5-5.[address] [facility] Protein [Mass/Vol] 6.9 g/dL 6.4-8.2 [facility] Sodium [Moles/Vol] 139 mmol/L 136-145 [facility] Urea nitrogen [Mass/Vol] 25.0 mg/dL High 7.0-18.0 [facility] Urea nitrogen/Creatinine [Mass ratio] 16.7 mg/mg [facility] Laboratory - Hematology and Cell countson 03-03-2024 Immature granulocytes/100 WBC (Bld) 0.0 % 0.0-0.5 [facility] Leukocytes [#/volume] correc tanesha for nucleated erythrocytes in Blood by Automated counon 03-03-2024 WBC corrected for nucl RBC Auto (Bld) [#/Vol] 2.8 10 3/uL Low 4.0-11.0 [facility] Lymphocytes Auto (Bld) [#/Vo l]on 03-03-2024 Lymphocytes (Bld) [#/Vol] 0.8 10 3/uL Low 1.2-3.8 [facility] Lymphocytes/100 WBC Auto (Bl d)on 03-03-2024 Lymphocytes/100 WBC (Bld) 27.6 % 20.5-60.0 [facility] MCH Auto (RBC) [Entitic mass ]on 03-03-2024 MCH (RBC) [Entitic mass] 28.8 pg 26.7-34.0 [facility] MCHC Auto (RBC) [Mass/Vol]on 03-03-2024 MCHC (RBC) [Mass/Vol] 30.7 g/dL 29.9-35.[address] [facility] MCV Auto (RBC) [Entitic vol] on 03-03-2024 MCV (RBC) [Entitic vol] 93.9 fL 81.0-99.0 [facility] Monocytes Auto (Bld) [#/Vol] on 03-03-2024 Monocytes (Bld) [#/Vol] 0.3 10 3/uL 0.3-0.8 [facility] Monocytes/100 WBC Auto (Bld) on 03-03-2024 Monocytes/100 WBC (Bld) 9.7 % 1.7-12.0 [facility] Neutrophils Auto (Bld) [#/Vo l]on 03-03-2024 Neutrophils (Bld) [#/Vol] 1.4 10 3/uL 1.4-6.5 [facility] Neutrophils/100 WBC Auto (Bl d)on 03-03-2024 Neutrophils/100 WBC (Bld) 51.2 % 43.0-75.0 [facility] No Panel Informationon 03-03 Eosinophils # (Auto) 0.3 10 3/uL 0.0-0.[address] [facility] Folate 9.50 ng/mL 8.60-58.90 [facility] Immature Granulocyte # (Auto) 0.00 10 3/uL 0.00-0.03 [facility] Protein Electrophoresis M-Miguel Not Observed g/dL Not Observed [facility] Protein Electrophoresis Note Comment . [facility] Comment on above: Protein electrophore sis scan will follow via computer,mail, or drafter delivery. Platelet mean volume Auto (B ld) [Entitic vol]on 03-03-2024 Platelet mean volume (Bld) [Entitic vol] 9.4 fL Low 9.5-13.5 [facility] Platelets Auto (Bld) [#/Vol] on 03-03-2024 Platelets (Bld) [#/Vol] 203 10 3/uL 150-450 [facility] Protein [Mass/volume] in Ser um or Plasmaon 03-03-2024 Protein [Mass/Vol] 6.2 g/dL 6.0-8.5 [facility] RBC Auto (Bld) [#/Vol]on RBC (Bld) [#/Vol] 4.13 10 6/uL Low 4.20-5.40 [facility] Serum globulin measurement ( mass/volume)on 03-03-2024 Globulin (S) [Mass/Vol] 2.7 g/dL 2.2-3.9 [facility] Serum or plasma albumin/glob ulin mass ratioon 03-03-2024 Albumin/Globulin [Mass ratio] 0.9 {ratio} [facility] Albumin/Globulin [Mass ratio] 1.3 {ratio} 0.7-1.7 [facility] Serum or plasma alpha 1 glob ulin measurement by electrophoresis (mass/volume)on 03-03-2024 Alpha 1 globulin Elph [Mass/Vol] 0.3 g/dL 0.0-0.4 [facility] Serum or plasma alpha 2 glob ulin measurement by electrophoresis (mass/volume)on 03-03-2024 Alpha 2 globulin Elph [Mass/Vol] 0.7 g/dL 0.4-1.0 [facility] Serum or plasma anion gap de terminationon 03-03-2024 Anion gap [Moles/Vol] 15.9 mmol/L [facility] Serum or plasma beta globuli n measurement by electrophoresis (mass/volume)on 03-03-2024 Beta globulin Elph [Mass/Vol] 1.0 g/dL 0.7-1.3 [facility] Serum or plasma gamma globul in measurement by electrophoresis (mass/volume)on 03-03-2024 Gamma globulin Elph [Mass/Vol] 0.8 g/dL 0.4-1.8 [facility] Serum or plasma immunoelectr ophoresis interpretationon 03-03-2024 Interpretation IEP [Interp] Comment . [facility] Comment on above: No monoclonality det ected. Estimated glomerular filtrat ion rate (GFR) non- Americanon 02-10-2024 GFR/1.73 sq M.predicted among non-blacks MDRD (S/P/Bld) [Vol rate/Area] 27 mL/min/{1.73_m2} >=60 [facility] Globulin Calc (S) [Mass/Vol] on 02-10-2024 Globulin (S) [Mass/Vol] 3.7 g/dL F [facility] Laboratory - Chemistry and C hemistry - challengeon 02-10-2024 Albumin [Mass/Vol] 3.3 g/dL 3.4-5.0 [facility] ALP [Catalytic activity/Vol] 174 U/L 46-116 [facility] ALT [Catalytic activity/Vol] 24 U/L 14-59 [facility] Amylase [Catalytic activity/Vol] 16 U/L 25-115 [facility] AST [Catalytic activity/Vol] 19 U/L 15-37 [facility] Bilirubin [Mass/Vol] 0.4 mg/dL 0.2-1.0 [facility] Calcium [Mass/Vol] 8.6 mg/dL 8.5-10.1 [facility] Chloride [Moles/Vol] 107 mmol/L 98-107 [facility] CO2 [Moles/Vol] 26.8 mmol/L 21.0-32.0 [facility] Creatinine [Mass/Vol] 1.81 mg/dL 0.55-1.[address] [facility] GFR/1.73 sq M.predicted MDRD (S/P/Bld) [Vol rate/Area] 33 mL/min/{1.73_m2} >=60 [facility] Glucose [Mass/Vol] 85 mg/dL 74-106 [facility] Lipase [Catalytic activity/Vol] 13.0 U/L 16.0-77.0 [facility] Potassium [Moles/Vol] 4.6 mmol/L 3.5-5.[address] [facility] Protein [Mass/Vol] 7.0 g/dL 6.4-8.2 [facility] Sodium [Moles/Vol] 143 mmol/L 136-145 [facility] Urea nitrogen [Mass/Vol] 25.0 mg/dL 7.0-18.0 [facility] Urea nitrogen/Creatinine [Mass ratio] 13.8 mg/mg [facility] Serum or plasma albumin/glob ulin mass ratioon 02-10-2024 Albumin/Globulin [Mass ratio] 0.9 {ratio} [facility] Serum or plasma anion gap de terminationon 02-10-2024 Anion gap [Moles/Vol] 13.8 mmol/L [facility] Serum or plasma cancer antig en 19-9 measurement (units/volume)on 02-10-2024 Cancer Ag 19-9 Qn 13 [arb'U]/mL 0-35 [facility] Comment on above: [facility] El ectrochemiluminescence Immunoassay(ECLIA)Values obtained with different assay methods or kits cannotbe used interchangeably. Results cannot be interpreted asabsolute evidence of the presence or absence of malignantdisease.Performed at: [facility] [address] [id number] Director: Junaid Sawyer PhD, Phone: [phone] No Panel Informationon 09-08 BLANK _ [facility] Implant Date 05/22/2015 [facility] Model 5076 CapSureFix Novus [facility] PACEMAKER CLINIC CHECKon AV Delay Adaptive Paced Minimum (ms) 180 ms [facility] AV Delay Adaptive Sensed Minimum (ms) 150 ms [facility] AV Delay Adaptive Status DISABLED [facility] Battery Voltage (volts) 2.94 V [facility] Godfrey RA Pacing Amplitude (volts) 1.5 V [facility] Godfrey RA Pacing Polarity BI [facility] Godfrey RA Pacing Pulse Width (ms) 0.4 ms [facility] Godfrey RA Sensing Amplitude (mvolts) 0.3 mV [facility] Godfrey RA Sensing Blanking Period (ms) 150 ms [facility] Godfrey RA Sensing Polarity BI [facility] Godfrey RA Sensing Refractory Period (ms) Auto [facility] Godfrey RV Pacing Amplitude (volts) 2 V [facility] Godfrey RV Pacing Polarity BI [facility] Godfrey RV Pacing Pulse Width (ms) 0.4 ms [facility] Godfrey RV Sensing Amplitude (mvolts) 0.9 mV [facility] Godfrey RV Sensing Blanking Period (ms) 200 ms [facility] Godfrey RV Sensing Polarity BI [facility] Hysteresis Rate (bpm) DISABLED [facility] Lead1 Mfg MDT [facility] Lead2 Mfg MDT [facility] Location RV [facility] Location RA [facility] Lower Rate (bpm) 60 {beats}/min [facility] Max Sensor Rate (bmp) 130 {beats}/min [facility] Model [id number] COBOS [facility] PM-Device Mfg MDT [facility] PM-Percent Pacing (A) 99.4 % [facility] PM-Percent Pacing (V) 0.24 % [facility] PM-PMT Intervention ENABLED [facility] PM-PVC Intervention ENABLED [facility] PM-Rate Modulation Acceleration Reaction 30 s [facility] PM-Rate Modulation ADL Rate (bpm) 100 {beats}/min [facility] PM-Rate Modulation Deceleration Exercise [facility] PM-Rate Modulation Threshold MediumLow [facility] RA Bipolar Impedance ohms 456 ohm [facility] RA Unipolar Impedance ohms 418 ohm [facility] RV Bipolar Impedance ohms 551 ohm [facility] RV Unipolar Impedance 532 ohm [facility] Serial Number [id number] [facility] Serial Number [id number] [facility] Serial Number [id number] [facility] Thresh RA Capture Amplitude (volts) 0.5 V [facility] Thresh RA Capture Duration (ms) 0.4 ms [facility] Thresh RA Sensing Amplitude (mvolts) 1.5 mV [facility] Thresh RV Capture Amplitude (volts) 0.75 V [facility] Thresh RV Capture Duration (ms) 0.4 ms [facility] Thresh RV Sensing Amplitude (mvolts) 13.125 mV [facility] Tracking Rate (bpm) 130 {beats}/min [facility] Basophils Auto (Bld) [#/Vol] Ordered By: Niki Weeks on 08-05-2023 Basophils (Bld) [#/Vol] 0.0 10*3/uL 0.0-0.2 [facility] Basophils/100 WBC Auto (Bld) Ordered By: Niki Weeks on 08-05-2023 Basophils/100 WBC (Bld) 0.2 % . [facility] Calcium [Mass/volume] in Ser um or PlasmaOrdered By: Niki Weeks on 08-05-2023 Calcium [Mass/Vol] 8.1 mg/dL 8.6-10.3 [facility] Carbon dioxide, total [Moles /volume] in Serum or PlasmaOrdered By: Niki Weeks on 08-05-2023 CO2 [Moles/Vol] 25.2 mmol/L 21.0-31.0 [facility] Chloride [Moles/volume] in S akila or PlasmaOrdered By: Niki Weeks on 08-05-2023 Chloride [Moles/Vol] 111 mmol/L 98-107 [facility] Creatinine [Mass/volume] in Serum or PlasmaOrdered By: Niki Weeks on 08-05-2023 Creatinine [Mass/Vol] 1.43 mg/dL 0.60-1.[address] [facility] Eosinophils Auto (Bld) [#/Vo l]Ordered By: Niki Weeks on 08-05-2023 Eosinophils (Bld) [#/Vol] 0.1 10*3/uL 0.0-0.45 [facility] Eosinophils/100 WBC Auto (Bl d)Ordered By: Niki eWeks on 08-05-2023 Eosinophils/100 WBC (Bld) 1.7 % . [facility] Erythrocyte distribution wid th Auto (RBC) [Ratio]Ordered By: Niki Weeks on 08-05-2023 Erythrocyte distribution width (RBC) [Ratio] 13.5 % 11.9-15.3 [facility] Glucose [Mass/volume] in Ser um or PlasmaOrdered By: Niki Weeks on 08-05-2023 Glucose [Mass/Vol] 121 mg/dL 70-100 [facility] Comment on above: ADA recommended refe rence rangeRandom Glucose Reference Range is dependent on time and content of last meal. Glucose of more than 200 mg/dL in a nonstressed, ambulatory subject supports the diagnosis of Diabetes Mellitus. Hematocrit Auto (Bld) [Volum e fraction]Ordered By: Niki Weeks on 08-05-2023 Hematocrit (Bld) [Volume fraction] 29.9 % 34.0-46.4 [facility] Hemoglobin [Mass/volume] in BloodOrdered By: Niki Weeks 08-05-2023 Hemoglobin (Bld) [Mass/Vol] 10.0 g/dL 11.8-15.4 [facility] Leukocytes [#/volume] correc tanesha for nucleated erythrocytes in Blood by Automated counOrdered By: Niki Weeks on 08-05-2023 WBC corrected for nucl RBC Auto (Bld) [#/Vol] 7.3 10*3/uL 3.8-11.6 [facility] Lymphocytes Auto (Bld) [#/Vo l]Ordered By: Niki Blades on 08-05-2023 Lymphocytes (Bld) [#/Vol] 0.9 10*3/uL 1.00-4.8 [facility] Lymphocytes/100 WBC Auto (Bl d)Ordered By: Niki Blades on 08-05-2023 Lymphocytes/100 WBC (Bld) 11.8 % . [facility] MCH Auto (RBC) [Entitic mass ]Ordered By: Niki Blades on 08-05-2023 MCH (RBC) [Entitic mass] 31.9 pg 24.7-34.3 [facility] MCHC Auto (RBC) [Mass/Vol]Or dered By: Niki Blades on 08-05-2023 MCHC (RBC) [Mass/Vol] 33.5 g/dL 32.0-35.[address] [facility] MCV Auto (RBC) [Entitic vol] Ordered By: Niki Blades on 08-05-2023 MCV (RBC) [Entitic vol] 95.1 fL 80-100 [facility] Monocytes Auto (Bld) [#/Vol] Ordered By: Niki Blades on 08-05-2023 Monocytes (Bld) [#/Vol] 0.7 10*3/uL 0.0-0.8 [facility] Monocytes/100 WBC Auto (Bld) Ordered By: Niki Blades on 08-05-2023 Monocytes/100 WBC (Bld) 9.2 % . [facility] Neutrophils Auto (Bld) [#/Vo l]Ordered By: Niki Blades on 08-05-2023 Neutrophils (Bld) [#/Vol] 5.6 10*3/uL 1.8-7.7 [facility] Neutrophils/100 WBC Auto (Bl d)Ordered By: Niki Blades on 08-05-2023 Neutrophils/100 WBC (Bld) 77.1 % . [facility] No Panel InformationOrdered By: Niki Blades on 08-05-2023 Estimated GFR (CKD-EPI) 38.727 mL/Min [facility] Creatinine Clearance (Chem 38.09 [facility] Nucleated erythrocytes [Pres ence] in Blood by Automated countOrdered By: Niki Blades on 08-05-2023 Nucleated RBC Auto Ql (Bld) 0.4 /100{WBC} 0-0.5 [facility] Platelet mean volume Auto (B ld) [Entitic vol]Ordered By: Niki Blades on 08-05-2023 Platelet mean volume (Bld) [Entitic vol] 7.6 fL 6.3-10.7 [facility] Platelets Auto (Bld) [#/Vol] Ordered By: Niki Blades on 08-05-2023 Platelets (Bld) [#/Vol] 147 10*3/uL 150-450 [facility] Potassium [Moles/volume] in Serum or PlasmaOrdered By: Niki Blades on 08-05-2023 Potassium [Moles/Vol] 4.4 mmol/L 3.5-5.[address] [facility] RBC Auto (Bld) [#/Vol]Ordere d By: Niki Blades on 08-05-2023 RBC (Bld) [#/Vol] 3.14 10*6/uL 3.60-5.00 [facility] Serum or plasma anion gap de terminationOrdered By: Niki Blades on 08-05-2023 Anion gap [Moles/Vol] 7.2 mmol/L 6.0-15.[address] [facility] Sodium [Moles/volume] in Ser um or PlasmaOrdered By: Niki Blades on 08-05-2023 Sodium [Moles/Vol] 139 mmol/L 136-145 [facility] Urea nitrogen [Mass/volume] in Serum or PlasmaOrdered By: Niki Blades on 08-05-2023 Urea nitrogen [Mass/Vol] 25 mg/dL 7-25 [facility] WBC Auto (Bld) [#/Vol]Ordere d By: Niki Blades on 08-05-2023 WBC (Bld) [#/Vol] 7.3 10*3/uL 3.8-11.6 [facility] Activated partial thrombopla stin time (aPTT) in platelet poor plasma by coagulation aOrdered By: Cj Gamboa on 08-03-2023 aPTT Coag (PPP) [Time] 44.3 s 25.1-36.5 [facility] Comment on above: A hematocrit value g reater than 55% may lead to inaccurate results in coagulation testing. Patients having hematocrit values >55% require a special collection tube for coagulation studies. Please contact the laboratory at [phone] for redraw instructions. INR in Platelet poor plasma by Coagulation assayOrdered By: Cj Gamboa on 08-03-2023 INR Coag (PPP) [Relative time] 2.1 {INR} [facility] Comment on above: INR Therapeutic Rang e [...] Coag (PPP) [Time] 24.8 s 9.0-12.9 [facility] Comment on above: A hematocrit value g reater than 55% may lead to inaccurate results in coagulation testing. Patients having hematocrit values >55% require a special collection tube for coagulation studies. Please contact the laboratory at [phone] for redraw instructions. Basophils Auto (Bld) [#/Vol] Ordered By: Niki Weeks on 07-20-2023 Basophils (Bld) [#/Vol] 0.0 10*3/uL 0.0-0.2 [facility] Basophils/100 WBC Auto (Bld) Ordered By: Niki Weeks on 07-20-2023 Basophils/100 WBC (Bld) 0.6 % . F [facility] Bilirubin Test strip Ql (U)O rdered By: Niki Weeks on 07-20-2023 Bilirubin Ql (U) Negative Negative [facility] Calcium [Mass/volume] in Ser um or PlasmaOrdered By: Niki Blades on 07-20-2023 Calcium [Mass/Vol] 8.6 mg/dL 8.6-10.3 [facility] Carbon dioxide, total [Moles /volume] in Serum or PlasmaOrdered By: Niki Blades on 07-20-2023 CO2 [Moles/Vol] 26.3 mmol/L 21.0-31.0 [facility] Chloride [Moles/volume] in S akila or PlasmaOrdered By: Niki Blades on 07-20-2023 Chloride [Moles/Vol] 109 mmol/L 98-107 [facility] Color Auto (U)Ordered By: Simpson Blades on 07-20-2023 Color (U) Yellow Yellow [facility] Creatinine [Mass/volume] in Serum or PlasmaOrdered By: Niki Blades on 07-20-2023 Creatinine [Mass/Vol] 1.52 mg/dL 0.60-1.[address] [facility] Eosinophils Auto (Bld) [#/Vo l]Ordered By: Niki Blades on 07-20-2023 Eosinophils (Bld) [#/Vol] 0.3 10*3/uL 0.0-0.45 [facility] Eosinophils/100 WBC Auto (Bl d)Ordered By: Niki Blades on 07-20-2023 Eosinophils/100 WBC (Bld) 4.9 % . [facility] Erythrocyte distribution wid th Auto (RBC) [Ratio]Ordered By: Niki Blades on 07-20-2023 Erythrocyte distribution width (RBC) [Ratio] 13.5 % 11.9-15.3 [facility] Glucose [Mass/volume] in Ser um or PlasmaOrdered By: Niki Blades on 07-20-2023 Glucose [Mass/Vol] 120 mg/dL 70-100 [facility] Comment on above: ADA recommended refe rence rangeRandom Glucose Reference Range is dependent on time and content of last meal. Glucose of more than 200 mg/dL in a nonstressed, ambulatory subject supports the diagnosis of Diabetes Mellitus. Hematocrit Auto (Bld) [Volum e fraction]Ordered By: Niki Weeks on 07-20-2023 Hematocrit (Bld) [Volume fraction] 38.3 % 34.0-46.4 [facility] Hemoglobin [Mass/volume] in BloodOrdered By: Niki Blades on 07-20-2023 Hemoglobin (Bld) [Mass/Vol] 12.6 g/dL 11.8-15.4 [facility] Ketones Auto test strip (U) [Mass/Vol]Ordered By: Niki Rms on 07-20-2023 Ketones (U) [Mass/Vol] Negative Negative [facility] Leukocytes [#/volume] correc tanesha for nucleated erythrocytes in Blood by Automated counOrdered By: Niki Blades on 07-20-2023 WBC corrected for nucl RBC Auto (Bld) [#/Vol] 5.2 10*3/uL 3.8-11.6 [facility] Lymphocytes Auto (Bld) [#/Vo l]Ordered By: Niki Blades on 07-20-2023 Lymphocytes (Bld) [#/Vol] 0.7 10*3/uL 1.00-4.8 [facility] Lymphocytes/100 WBC Auto (Bl d)Ordered By: Niki Blades on 07-20-2023 Lymphocytes/100 WBC (Bld) 13.8 % . [facility] MCH Auto (RBC) [Entitic mass ]Ordered By: Niki Blades on 07-20-2023 MCH (RBC) [Entitic mass] 30.9 pg 24.7-34.3 [facility] MCHC Auto (RBC) [Mass/Vol]Or dered By: Niki Blades on 07-20-2023 MCHC (RBC) [Mass/Vol] 33.0 g/dL 32.0-35.[address] [facility] MCV Auto (RBC) [Entitic vol] Ordered By: Niki Blades on 07-20-2023 MCV (RBC) [Entitic vol] 93.7 fL 80-100 [facility] Monocytes Auto (Bld) [#/Vol] Ordered By: Niki Blades on 07-20-2023 Monocytes (Bld) [#/Vol] 0.4 10*3/uL 0.0-0.8 [facility] Monocytes/100 WBC Auto (Bld) Ordered By: Niki Weeks on 07-20-2023 Monocytes/100 WBC (Bld) 6.9 % . F [facility] Neutrophils Auto (Bld) [#/Vo l]Ordered By: Niki Weeks on 07-20-2023 Neutrophils (Bld) [#/Vol] 3.8 10*3/uL 1.8-7.7 [facility] Neutrophils/100 WBC Auto (Bl d)Ordered By: Niki Weeks on 07-20-2023 Neutrophils/100 WBC (Bld) 73.8 % . [facility] Nitrite Test strip Ql (U)Ord ered By: Niki Weeks on 07-20-2023 Nitrite Ql (U) Negative Negative [facility] No Panel InformationOrdered By: Niki Weeks on 07-20-2023 Estimated GFR (CKD-EPI) 35.992 mL/Min [facility] Creatinine Clearance (Chem N/A [facility] Nucleated erythrocytes [Pres ence] in Blood by Automated countOrdered By: Niki Weeks on 07-20-2023 Nucleated RBC Auto Ql (Bld) 0.1 /100{WBC} 0-0.5 [facility] Platelet mean volume Auto (B ld) [Entitic vol]Ordered By: Niki Weeks on 07-20-2023 Platelet mean volume (Bld) [Entitic vol] 7.2 fL 6.3-10.7 [facility] Platelets Auto (Bld) [#/Vol] Ordered By: Niki Weeks on 07-20-2023 Platelets (Bld) [#/Vol] 194 10*3/uL 150-450 [facility] Potassium [Moles/volume] in Serum or PlasmaOrdered By: Niki Weeks on 07-20-2023 Potassium [Moles/Vol] 4.6 mmol/L 3.5-5.[address] [facility] Protein Auto test strip (U) [Mass/Vol]Ordered By: Niki Weeks on 07-20-2023 Protein (U) [Mass/Vol] Negative Negative [facility] RBC Auto (Bld) [#/Vol]Ordere d By: Niki Weeks on 07-20-2023 RBC (Bld) [#/Vol] 4.09 10*6/uL 3.60-5.00 [facility] Serum or plasma anion gap de terminationOrdered By: Niki Weeks on 07-20-2023 Anion gap [Moles/Vol] 9.3 mmol/L 6.0-15.[address] [facility] Sodium [Moles/volume] in Ser um or PlasmaOrdered By: Niki Weeks on 07-20-2023 Sodium [Moles/Vol] 140 mmol/L 136-145 [facility] Specific gravity Auto test s trip (U) [Rel density]Ordered By: Niki Weeks on 07-20-2023 Specific gravity (U) [Rel density] 1.021 1.001-1.03 0 [facility] Urea nitrogen [Mass/volume] in Serum or PlasmaOrdered By: Niki Weeks on 07-20-2023 Urea nitrogen [Mass/Vol] 30 mg/dL 7-25 [facility] Urine clarity by refractomet ry automatedOrdered By: Niki Weeks on 07-20-2023 Clarity Refractometry automated (U) Clear Clear [facility] Urine glucose measurement by automated test strip (mass/volume)Ordered By: Niki Weeks on 07-20-2023 Glucose Auto test strip (U) [Mass/Vol] Normal mg/dL Normal [facility] Urine hemoglobin detection b y automated test stripOrdered By: Niki Weeks on 07-20-2023 Hemoglobin Auto test strip Ql (U) Negative Negative [facility] Urine leukocyte esterase det ection by automated test stripOrdered By: Niki Weeks on 07-20-2023 Leukocyte esterase Auto test strip Ql (U) Negative Negative [facility] Urobilinogen Auto test strip (U) [Mass/Vol]Ordered By: Niki Weeks on 07-20-2023 Urobilinogen (U) [Mass/Vol] Normal mg/dL Normal [facility] WBC Auto (Bld) [#/Vol]Ordere d By: Niki Weeks on 07-20-2023 WBC (Bld) [#/Vol] 5.2 10*3/uL 3.8-11.6 [facility] pH Auto test strip (U)Ordere d By: Niki Weeks on 07-20-2023 pH (U) 5.5 [pH] 5.0-9.0 [facility] No Panel Informationon 06-16 BLANK _ [facility] Implant Date 05/22/2015 [facility] Model 5076 Cap[employer] Novus [facility] PACEMAKER REMOTE CHECKon AV Delay Adaptive Paced Minimum (ms) 180 ms [facility] AV Delay Adaptive Sensed Minimum (ms) 150 ms [facility] AV Delay Adaptive Status DISABLED [facility] Battery Voltage (volts) 2.94 V [facility] Godfrey RA Pacing Amplitude (volts) 1.5 V [facility] Godfrey RA Pacing Polarity BI [facility] Godfrey RA Pacing Pulse Width (ms) 0.4 ms [facility] Godfrey RA Sensing Amplitude (mvolts) 0.3 mV [facility] Godfrey RA Sensing Blanking Period (ms) 150 ms [facility] Godfrey RA Sensing Polarity BI [facility] Godfrey RA Sensing Refractory Period (ms) Auto [facility] Godfrey RV Pacing Amplitude (volts) 2 V [facility] Godfrey RV Pacing Polarity BI [facility] Godfrey RV Pacing Pulse Width (ms) 0.4 ms [facility] Godfrey RV Sensing Amplitude (mvolts) 0.9 mV [facility] Godfrey RV Sensing Blanking Period (ms) 200 ms [facility] Godfrey RV Sensing Polarity BI [facility] Hysteresis Rate (bpm) DISABLED [facility] Lead1 Jorge KELLER [facility] Lead2 Jorge KELLER [facility] Location RV [facility] Location RA [facility] Lower Rate (bpm) 60 {beats}/min [facility] Max Sensor Rate (bmp) 130 {beats}/min [facility] Model [id number] COBOS [facility] PM-Device Jorge KELLER [facility] PM-Percent Pacing (A) 99.76 % [facility] PM-Percent Pacing (V) 0.11 % [facility] PM-PMT Intervention ENABLED [facility] PM-PVC Intervention ENABLED [facility] PM-Rate Modulation Acceleration Reaction 30 s [facility] PM-Rate Modulation ADL Rate (bpm) 100 {beats}/min [facility] PM-Rate Modulation Deceleration Exercise [facility] PM-Rate Modulation Threshold MediumLow [facility] RA Bipolar Impedance ohms 437 ohm [facility] RA Unipolar Impedance ohms 399 ohm [facility] RV Bipolar Impedance ohms 532 ohm [facility] RV Unipolar Impedance 494 ohm [facility] Serial Number [id number] [facility] Serial Number [id number] [facility] Serial Number [id number] [facility] Thresh RA Capture Amplitude (volts) 0.5 V [facility] Thresh RA Capture Duration (ms) 0.4 ms [facility] Thresh RA Sensing Amplitude (mvolts) 2.25 mV [facility] Thresh RV Capture Amplitude (volts) 0.75 V [facility] Thresh RV Capture Duration (ms) 0.4 ms [facility] Thresh RV Sensing Amplitude (mvolts) 12.875 mV [facility] Tracking Rate (bpm) 130 {beats}/min [facility] Creatinine (Bld) [Mass/Vol]O rdered By: Broderick Howard on 06-04-2023 Creatinine [Mass/Vol] 1.6 mg/dL 0.6-1.[address] [facility] Comment on above: ER/ESD physician is notified/shown all ISTAT results.Critical values may be confirmed by laboratory testing ifdeemed necessary by ER attending doctor. No Panel Informationon 02-24 BLANK _ [facility] Implant Date 05/22/2015 [facility] Model 5076 [employer]Sure[employer] Novus [facility] PACEMAKER REMOTE CHECKon AV Delay Adaptive Paced Minimum (ms) 180 ms [facility] AV Delay Adaptive Sensed Minimum (ms) 150 ms [facility] AV Delay Adaptive Status DISABLED [facility] Battery Voltage (volts) 2.95 V [facility] Godfrey RA Pacing Amplitude (volts) 1.5 V [facility] Godfrey RA Pacing Polarity BI [facility] Godfrey RA Pacing Pulse Width (ms) 0.4 ms [facility] Godfrey RA Sensing Amplitude (mvolts) 0.3 mV [facility] Godfrey RA Sensing Blanking Period (ms) 150 ms [facility] Godfrey RA Sensing Polarity BI [facility] Godfrey RA Sensing Refractory Period (ms) Auto [facility] Godfrey RV Pacing Amplitude (volts) 2 V [facility] Godfrey RV Pacing Polarity BI [facility] Godfrey RV Pacing Pulse Width (ms) 0.4 ms [facility] Godfrey RV Sensing Amplitude (mvolts) 0.9 mV [facility] Godfrey RV Sensing Blanking Period (ms) 200 ms [facility] Godfrey RV Sensing Polarity BI [facility] Hysteresis Rate (bpm) DISABLED [facility] Lead1 Mfg MDT [facility] Lead2 Mfg MDT [facility] Location RV [facility] Location RA [facility] Lower Rate (bpm) 60 {beats}/min [facility] Max Sensor Rate (bmp) 130 {beats}/min [facility] Model [id number] PAPITO [facility] PM-Device Mfg MDT [facility] PM-Percent Pacing (A) 99.67 % [facility] PM-Percent Pacing (V) 0.2 % [facility] PM-PMT Intervention ENABLED [facility] PM-PVC Intervention ENABLED [facility] PM-Rate Modulation Acceleration Reaction 30 s [facility] PM-Rate Modulation ADL Rate (bpm) 100 {beats}/min [facility] PM-Rate Modulation Deceleration Exercise [facility] PM-Rate Modulation Threshold MediumLow [facility] RA Bipolar Impedance ohms 418 ohm [facility] RA Unipolar Impedance ohms 380 ohm [facility] RV Bipolar Impedance ohms 532 ohm [facility] RV Unipolar Impedance 494 ohm [facility] Serial Number [id number] [facility] Serial Number [id number] [facility] Serial Number [id number] [facility] Thresh RA Capture Amplitude (volts) 0.5 V [facility] Thresh RA Capture Duration (ms) 0.4 ms [facility] Thresh RA Sensing Amplitude (mvolts) 2.25 mV [facility] Thresh RV Capture Amplitude (volts) 0.875 V [facility] Thresh RV Capture Duration (ms) 0.4 ms [facility] Thresh RV Sensing Amplitude (mvolts) 12.875 mV [facility] Tracking Rate (bpm) 130 {beats}/min [facility] No Panel Informationon 11-26 BLANK _ [facility] Implant Date 05/22/2015 [facility] Model 5076 [employer] Nov[employer] [facility] PACEMAKER REMOTE CHECKon AV Delay Adaptive Paced Minimum (ms) 180 ms [facility] AV Delay Adaptive Sensed Minimum (ms) 150 ms [facility] AV Delay Adaptive Status DISABLED [facility] Battery Voltage (volts) 2.96 V C [facility] Godfrey RA Pacing Amplitude (volts) 1.5 V [facility] Godfrey RA Pacing Polarity BI [facility] Godfrey RA Pacing Pulse Width (ms) 0.4 ms [facility] Godfrey RA Sensing Amplitude (mvolts) 0.3 mV [facility] Godfrey RA Sensing Blanking Period (ms) 150 ms [facility] Godfrey RA Sensing Polarity BI [facility] Godfrey RA Sensing Refractory Period (ms) Auto [facility] Godfrey RV Pacing Amplitude (volts) 2 V [facility] Godfrey RV Pacing Polarity BI [facility] Godfrey RV Pacing Pulse Width (ms) 0.4 ms [facility] Godfrey RV Sensing Amplitude (mvolts) 0.9 mV [facility] Godfrey RV Sensing Blanking Period (ms) 200 ms [facility] Godfrey RV Sensing Polarity BI [facility] Hysteresis Rate (bpm) DISABLED [facility] Lead1 Mfg MDT [facility] Lead2 Mfg MDT [facility] Location RV [facility] Location RA [facility] Lower Rate (bpm) 60 {beats}/min [facility] Max Sensor Rate (bmp) 130 {beats}/min [facility] Model [id number] COBOS [facility] PM-Device Mfg MDT [facility] PM-Percent Pacing (A) 99.43 % [facility] PM-Percent Pacing (V) 0.17 % [facility] PM-PMT Intervention ENABLED [facility] PM-PVC Intervention ENABLED [facility] PM-Rate Modulation Acceleration Reaction 30 s [facility] PM-Rate Modulation ADL Rate (bpm) 100 {beats}/min [facility] PM-Rate Modulation Deceleration Exercise [facility] PM-Rate Modulation Threshold MediumLow [facility] RA Bipolar Impedance ohms 437 ohm [facility] RA Unipolar Impedance ohms 399 ohm [facility] RV Bipolar Impedance ohms 532 ohm [facility] RV Unipolar Impedance 494 ohm [facility] Serial Number [id number] [facility] Serial Number [id number] [facility] Serial Number [id number] [facility] Thresh RA Capture Amplitude (volts) 0.5 V [facility] Thresh RA Capture Duration (ms) 0.4 ms [facility] Thresh RA Sensing Amplitude (mvolts) 1.875 mV [facility] Thresh RV Capture Amplitude (volts) 0.75 V [facility] Thresh RV Capture Duration (ms) 0.4 ms [facility] Thresh RV Sensing Amplitude (mvolts) 11.75 mV [facility] Tracking Rate (bpm) 130 {beats}/min [facility] No Panel Informationon 08-26 BLANK _ [facility] Implant Date 05/22/2015 [facility] Model 5076 [employer] Nov[employer] [facility] PACEMAKER REMOTE CHECKon AV Delay Adaptive Paced Minimum (ms) 180 ms [facility] AV Delay Adaptive Sensed Minimum (ms) 150 ms [facility] AV Delay Adaptive Status DISABLED [facility] Battery Voltage (volts) 2.96 V C [facility] Godfrey RA Pacing Amplitude (volts) 1.5 V [facility] Godfrey RA Pacing Polarity BI [facility] Godfrey RA Pacing Pulse Width (ms) 0.4 ms [facility] Godfrey RA Sensing Amplitude (mvolts) 0.3 mV [facility] Godfrey RA Sensing Blanking Period (ms) 150 ms [facility] Godfrey RA Sensing Polarity BI [facility] Godfrey RA Sensing Refractory Period (ms) Auto [facility] Godfrey RV Pacing Amplitude (volts) 2 V [facility] Godfrey RV Pacing Polarity BI [facility] Godfrey RV Pacing Pulse Width (ms) 0.4 ms [facility] Godfrey RV Sensing Amplitude (mvolts) 0.9 mV [facility] Godfrey RV Sensing Blanking Period (ms) 200 ms [facility] Godfrey RV Sensing Polarity BI [facility] Hysteresis Rate (bpm) DISABLED [facility] Lead1 Mfg MDT [facility] Lead2 Mfg MDT [facility] Location RV [facility] Location RA [facility] Lower Rate (bpm) 60 {beats}/min [facility] Max Sensor Rate (bmp) 130 {beats}/min [facility] Model [id number] COBOS [facility] PM-Device Mfg MDGalo [facility] PM-Percent Pacing (A) 99.6 % [facility] PM-Percent Pacing (V) 0.24 % [facility] PM-PMT Intervention ENABLED [facility] PM-PVC Intervention ENABLED [facility] PM-Rate Modulation Acceleration Reaction 30 s [facility] PM-Rate Modulation ADL Rate (bpm) 100 {beats}/min [facility] PM-Rate Modulation Deceleration Exercise [facility] PM-Rate Modulation Threshold MediumLow [facility] RA Bipolar Impedance ohms 437 ohm [facility] RA Unipolar Impedance ohms 399 ohm [facility] RV Bipolar Impedance ohms 532 ohm [facility] RV Unipolar Impedance 494 ohm [facility] Serial Number [id number] [facility] Serial Number [id number] [facility] Serial Number [id number] [facility] Thresh RA Capture Amplitude (volts) 0.5 V [facility] Thresh RA Capture Duration (ms) 0.4 ms [facility] Thresh RA Sensing Amplitude (mvolts) 2.5 mV [facility] Thresh RV Capture Amplitude (volts) 0.75 V [facility] Thresh RV Capture Duration (ms) 0.4 ms [facility] Thresh RV Sensing Amplitude (mvolts) 12.125 mV [facility] Tracking Rate (bpm) 130 {beats}/min [facility] US KIDNEYS BLADDERon 022 US KIDNEYS BLADDER EXAMINATION: US [facility] BLADDER HISTORY: Chronic kidney disease due to [...] EBEN BABCOCK Date: 2022-08-10 19:30 Normal [facility] UA RANDOM W/MICROSCOPICon BACTERIA NONE SEEN Normal NONE SEEN [facility] Comment on above: Performed By: #### U AMIC #### [facility] [address] [address] [address] Leah Felipe Bilirubin Ql (U) Negative Normal NEGATIVE [facility] Comment on above: Performed By: #### U AMIC #### [facility] [address] [address] [address] Leah Felipe CAST NONE SEEN Normal NONE SEEN [facility] Comment on above: Performed By: #### U AMIC #### [facility] [address] [place] [address] Dr. Leah Felipe Clarity (U) CLEAR Normal CLEAR [facility] Comment on above: Performed By: #### U AMIC #### [facility] [address] [place] [address] Dr. Leah Felipe Color (U) LT. YELLOW Normal YELLOW [facility] Comment on above: Performed By: #### U AMIC #### [facility] [address] [place] [address] Dr. Leah Felipe Crystals LM Nom (Urine sed) NONE SEEN Normal NONE SEEN [facility] Comment on above: Performed By: #### U AMIC #### [facility] [address] [place] [address] Dr. Leah Felipe Epithelial cells LM Ql (Urine sed) FEW Abnormal NONE SEEN /RARE [facility] Comment on above: Performed By: #### U AMIC #### [facility] [address] [place] [address] Dr. Leah Felipe Glucose Ql (U) Negative Normal NEGATIVE [facility] Comment on above: Performed By: #### U AMIC #### [facility] [address] [place] [address] Dr. Leah Felipe Hemoglobin Ql (U) Negative Normal NEGATIVE [facility] Comment on above: Performed By: #### U AMIC #### [facility] [address] [place] [address] Dr. Leah Felipe Ketones Ql (U) Negative Normal NEGATIVE [facility] Comment on above: Performed By: #### U AMIC #### [facility] [address] [place] [address] Dr. Leah Felipe LEUKOCYTES Negative Normal NEGATIVE [facility] Comment on above: Performed By: #### U AMIC #### [facility] [address] [place] [address] Dr. Leah Felipe MUCOUS NONE SEEN Normal NONE SEEN [facility] Comment on above: Performed By: #### U AMIC #### [facility] [address] [place] [address] Dr. Leah Felipe Nitrite Ql (U) Negative Normal NEGATIVE [facility] Comment on above: Performed By: #### U AMIC #### [facility] [address] [place] [address] Dr. Leah Felipe pH (U) 6.0 [pH] Normal 5-9 [facility] Comment on above: Performed By: #### U AMIC #### [facility] [address] [place] [address] Dr. Leah Felipe RBC NONE SEEN Abnormal 0-2 [facility] Comment on above: Performed By: #### U AMIC #### [facility] [address] [place] [address] Dr. Leah Felipe SPEC GRAVITY 1.025 Normal 1.005-<=1. 025 [facility] Comment on above: Performed By: #### U AMIC #### [facility] [address] [place] [address] Dr. Leah Felipe UA PROTEIN Negative Normal NEGATIVE/ TRACE [facility] Comment on above: Performed By: #### U AMIC #### [facility] [address] [place] [address] Dr. Leah Felipe Urobilinogen Qn (U) 0.2 {Lin'U}/dL Normal 0.2 - 1. 0 [facility] Comment on above: Performed By: #### U AMIC #### [facility] [address] [place] [address] Dr. Leah Felipe WBC 0-2 Abnormal NONE SEEN [facility] Comment on above: Performed By: #### U AMIC #### [facility] [address] [place] [address] Dr. Leah Felipe URINE T PROTEIN CREAT RATIOo n 08-03-2022 Protein (U) [Mass/Vol] 30.2 mg/dL Critically high <=12.0 [facility] Comment on above: Performed By: #### U RTPCR #### [facility] [address] [place] [address] Dr. Leah Felipe UR PROT CREAT RAT 0.19 Normal [facility] Comment on above: Performed By: #### U RTPCR #### [facility] [address] [place] [address] Dr. Leah Felipe URINE CREAT 159.67 mg/dL Normal 20.00-300. 00 [facility] Comment on above: Performed By: #### U RTPCR #### [facility] [address] [place] [address] Dr. Leah Felipe CBC AUTO DIFFon 07-31-2022 BASO # 0.0 103/ul Normal 0.0-0.1 [facility] Comment on above: Performed By: #### C BC #### [facility] [address] [place] [address] Dr. Leah Felipe Basophils/100 WBC (Bld) 0.6 % Normal 0.2-2.0 [facility] Comment on above: Performed By: #### C BC #### [facility] [address] [place] [address] Dr. Leah Felipe EO # 0.3 103/ul Normal 0.0-0.7 [facility] Comment on above: Performed By: #### C BC #### [facility] [address] [place] [address] Dr. Leah Felipe Eosinophils/100 WBC (Bld) 5.5 % Normal 0.9-7.0 [facility] Comment on above: Performed By: #### C BC #### [facility] [address] [place] [address] Dr. Leah Felipe Erythrocyte distribution width (RBC) [Ratio] 12.5 % Normal 11.0-15.0 [facility] Comment on above: Performed By: #### C BC #### [facility] [address] [place] [address] Dr. Leah Felipe Hematocrit (Bld) [Volume fraction] 39.2 % Normal 36.0-48.0 [facility] Comment on above: Performed By: #### C BC #### [facility] [address] [place] [address] Dr. Leah Felipe Hemoglobin (Bld) [Mass/Vol] 12.5 g/dL Normal 12.0-16.0 [facility] Comment on above: Performed By: #### C BC #### [facility] [address] [place] [address] Dr. Leah Felipe IG # 0.01 10e3/ul Normal 0.00-0.03 [facility] Comment on above: Performed By: #### C BC #### [facility] [address] [place] [address] Dr. Leah Felipe IG % 0.2 % Normal 0.0-0.5 [facility] Comment on above: Performed By: #### C BC #### [facility] [address] [place] [address] Dr. Leah Felipe LYMPH # 0.8 103/ul Critically low 1.2-3.8 [facility] Comment on above: Performed By: #### C BC #### [facility] [address] [place] [address] Dr. Leah Felipe Lymphocytes/100 WBC (Bld) 16.0 % Critically low 20.5-60.0 [facility] Comment on above: Performed By: #### C BC #### [facility] [address] [place] [address] Dr. Leah Felipe MANUAL DIFF REQ NO Normal [facility] Comment on above: Performed By: #### C BC #### [facility] [address] [place] [address] Dr. Leah Felipe MCH (RBC) [Entitic mass] 30.9 pg Normal 26.7-34.0 [facility] Comment on above: Performed By: #### C BC #### [facility] [address] [place] [address] Dr. Leah Felipe MCHC (RBC) [Mass/Vol] 31.9 g/dL Normal 29.9-35.2 [facility] Comment on above: Performed By: #### C BC #### [facility] [address] [place] [address] Dr. Leah Felipe MCV (RBC) [Entitic vol] 97.0 fL Normal 81.0-99.0 [facility] Comment on above: Performed By: #### C BC #### [facility] [address] [place] [address] Dr. Leah Felipe MONO # 0.4 103/ul Normal 0.3-0.8 [facility] Comment on above: Performed By: #### C BC #### [facility] [address] [place] [address] Dr. Leah Felipe Monocytes/100 WBC (Bld) 8.7 % Normal 1.7-12.0 [facility] Comment on above: Performed By: #### C BC #### [facility] [address] [place] [address] Dr. Leah Felipe NEUT # 3.4 103/ul Normal 1.4-6.5 [facility] Comment on above: Performed By: #### C BC #### [facility] [address] [place] [address] Dr. Leah Felipe Neutrophils/100 WBC (Bld) 69.0 % Normal 43.0-75.0 [facility] Comment on above: Performed By: #### C BC #### [facility] [address] [place] [address] Dr. Leah Felipe Platelet mean volume (Bld) [Entitic vol] 9.1 fL Critically low 9.5-13.5 [facility] Comment on above: Performed By: #### C BC #### [facility] [address] [place] [address] Dr. Leah Felipe PLT 196 103/ul Normal 150-450 [facility] Comment on above: Performed By: #### C BC #### [facility] [address] [place] [address] Dr. Leah Felipe RBC 4.04 106/ul Critically low 4.20-5.40 [facility] Comment on above: Performed By: #### C BC #### [facility] [address] [place] [address] Dr. Leah Felipe WBC 5.0 103/ul Normal 4.0-11.0 [facility] Comment on above: Performed By: #### C BC #### [facility] [address] [place] [address] Dr. Leah Felipe PROF CHEM 8 (BAS METB)on Anion gap [Moles/Vol] 9.8 mmol/L Normal [facility] Comment on above: Performed By: #### B MP, TSH #### [facility] [address] [place] [address] Dr. Leah Felipe Calcium [Mass/Vol] 8.2 mg/dL Critically low 8.5-10.1 [facility] Comment on above: Performed By: #### B MP, TSH #### [facility] [address] [place] [address] Dr. Leah Felipe Chloride [Moles/Vol] 107 mmol/L Normal 98-107 [facility] Comment on above: Performed By: #### B MP, TSH #### [facility] [address] [place] [address] Dr. Leah Felipe CO2 [Moles/Vol] 26.4 mmol/L Normal 21.0-32.0 [facility] Comment on above: Performed By: #### B MP, TSH #### [facility] [address] [place] [address] Dr. Leah Felipe Creatinine [Mass/Vol] 1.53 mg/dL Critically high 0.55-1.02 [facility] Comment on above: Performed By: #### B MP, TSH #### [facility] [address] [place] [address] Dr. Leah Felipe EGFR-AF TAIWANESE 40 mL/min/1.73m2 Critically low >=60 [facility] Comment on above: Performed By: #### B MP, TSH #### [facility] [address] [place] [address] Dr. Leah Felipe EGFR-NON AF TAIWANESE 33 mL/min/1.73m2 Critically low >=60 [facility] Comment on above: Performed By: #### B MP, TSH #### [facility] [address] [place] [address] Dr. Leah Felipe Glucose [Mass/Vol] 108 mg/dL Critically high 74-106 [facility] Comment on above: Performed By: #### B MP, TSH #### [facility] [address] [place] [address] Dr. Leah Felipe Potassium [Moles/Vol] 4.2 mmol/L Normal 3.5-5.1 [facility] Comment on above: Performed By: #### B MP, TSH #### [facility] [address] [place] [address] Dr. Leah Felipe Sodium [Moles/Vol] 139 mmol/L Normal 136-145 [facility] Comment on above: Performed By: #### B MP, TSH #### [facility] [address] [place] [address] Dr. Leah Felipe Urea nitrogen [Mass/Vol] 26.0 mg/dL Critically high 7.0-18.0 [facility] Comment on above: Performed By: #### B VENANCIO, TSH #### [facility] [address] [place] [address] Dr. Leah Felipe Urea nitrogen/Creatinine [Mass ratio] 17.0 mg/mg Normal [facility] Comment on above: Performed By: #### B MP, TSH #### [facility] [address] [place] [address] Dr. Leah Felipe TSHon 07-31-2022 TSH 1.650 uIU/mL Normal 0.358-3.74 0 [facility] Comment on above: Performed By: #### B MP, TSH #### [facility] [address] [place] [address] Dr. Leah Felipe VITAMIN B12on 07-31-2022 Cobalamin (Vitamin B12) [Mass/Vol] 378.0 pg/mL Normal 193.0-986. 0 [facility] Comment on above: Performed By: #### V ITB12 #### [facility] [address] [place] [address] Dr. Leah Felipe MG MAMM SCREEN 3D FAVIOLA CADon 07-29-2022 MG MAMM SCREEN 3D FAVIOLA CAD Patient: CASSI RODRIGEZMavis Exam Date: 07/29/2022 : 1950 Gender:F Ordering : DR BRODERICK HOWARD D.O. Admission #: [id number] Family : Order #: [id number] CLICK HERE TO VIEW EXAM RADIOLOGY REPORT [...] pancreatic cancer at age 64. LOCATION: [facility] BREAST COMPOSITION: Heterogeneously dense,which may [...] MD on 07/29/2022 at 11:19 Normal [facility] CBC panel Auto (Bld)on 07-23 Erythrocyte distribution width (RBC) [Ratio] 12.5 % Normal 11.5-15.0 [facility] Comment on above: Order Comment: Warren almazan Type: BLOOD SPECIMEN Ordering Facility: [facility] Address: [address] [address] Performed By: #### 5 8410-2 #### [facility] CLIA [id number] [facility] [place] [address] [place] Hematocrit (Bld) [Volume fraction] 39.3 % Normal 36.0-46.0 [facility] Comment on above: Order Comment: Warren almazan Type: BLOOD SPECIMEN Ordering Facility: [facility] Address: [address] [address] Performed By: #### 5 8410-2 #### [facility] [place] [id number] [address] [place] [address] [place] Hemoglobin (Bld) [Mass/Vol] 12.5 g/dL Normal 11.5-15.5 [facility] Comment on above: Order Comment: Speci men Type: BLOOD SPECIMEN Ordering Facility: [facility] Address: [address] [place] [address] Performed By: #### 5 8410-2 #### [facility] [place] [id number] [place] [address] [place] MCH (RBC) [Entitic mass] 31.3 pg Normal 26.0-34.0 [facility] Comment on above: Order Comment: Speci men Type: BLOOD SPECIMEN Ordering Facility: [facility] Address: [address] [place] [address] Performed By: #### 5 8410-2 #### [facility] [place] [id number] [address] [place] [address] [place] MCHC (RBC) [Mass/Vol] 31.8 g/dL Normal 30.5-36.0 [facility] Comment on above: Order Comment: Speci men Type: BLOOD SPECIMEN Ordering Facility: [facility] Address: [address] [place] [address] Performed By: #### 5 8410-2 #### [facility] [place] [id number] [address] [place] [address] [place] MCV (RBC) [Entitic vol] 98.5 fL Normal 80.0-100.0 [facility] Comment on above: Order Comment: Speci men Type: BLOOD SPECIMEN Ordering Facility: [facility] Address: [address] [place] [address] Performed By: #### 5 8410-2 #### [facility] IA [id number] [place] [address] [place] Nucleated RBC (Bld) [#/Vol] 10*3/uL Normal <0.01 [facility] Comment on above: Order Comment: Speci men Type: BLOOD SPECIMEN Ordering Facility: [facility] Address: [address] [place], [place] [id number] Performed By: #### 5 8410-2 #### [facility] CLIA [id number] [address] [place] [address] [place] Platelet mean volume (Bld) [Entitic vol] 9.5 fL Normal 9.0-12.7 [facility] Comment on above: Order Comment: Speci men Type: BLOOD SPECIMEN Ordering Facility: [facility] Address: [address] [place], [place] [id number] Performed By: #### 5 8410-2 #### [facility] CLIA [id number] [address] [place] [address] [place] Platelets (Bld) [#/Vol] 214 10*3/uL Normal 150-400 [facility] Comment on above: Order Comment: Speci men Type: BLOOD SPECIMEN Ordering Facility: [facility] Address: [address] [place], [place] [address] Performed By: #### 5 8410-2 #### [facility] CLIA [id number] [address] [place] [address] [place] RBC (Bld) [#/Vol] 3.99 10*6/uL Normal 3.90-5.20 [facility] Comment on above: Order Comment: Speci men Type: BLOOD SPECIMEN Ordering Facility: [facility] Address: [address] [place], [place] [address] Performed By: #### 5 8410-2 #### [facility] CLIA [id number] [address] [place] [address] [place] WBC (Bld) [#/Vol] 5.85 10*3/uL Normal 3.70-11.00 [facility] Comment on above: Order Comment: Speci men Type: BLOOD SPECIMEN Ordering Facility: [facility] Address: [address] [place], [place] [address] Performed By: #### 5 8410-2 #### [facility] CLIA [id number] [address] [facility] [place] [address] [place] Erythrocyte distribution width (RBC) [Ratio] 12.5 % 11.5 - 15.0 % [facility] Hematocrit (Bld) [Volume fraction] 39.3 % 36.0 - 46.0 % [facility] Hemoglobin (Bld) [Mass/Vol] 12.5 g/dL 11.5 - 15.5 g/dL [facility] MCH (RBC) [Entitic mass] 31.3 pg 26.0 - 34.0 pg [facility] MCHC (RBC) [Mass/Vol] 31.8 g/dL 30.5 - 36.0 g/dL [facility] MCV (RBC) [Entitic vol] 98.5 fL 80.0 - 100.0 fL [facility] Nucleated RBC (Bld) [#/Vol] <0.01 k/uL [facility] Platelet mean volume (Bld) [Entitic vol] 9.5 fL 9.0 - 12.7 fL [facility] Platelets (Bld) [#/Vol] 214 10*3/uL 150 - 400 k/uL [facility] RBC (Bld) [#/Vol] 3.99 10*6/uL 3.90 - 5.20 m/uL [facility] WBC (Bld) [#/Vol] 5.85 10*3/uL 3.70 - 11.00 k/uL [facility] TSH BLDon 07-23-2022 TSH Qn 1.890 m[IU]/L 0.270 - 4.200 mIU/L [facility] TSH SerPl-aCncon 07-23-2022 TSH Qn 1.890 m[IU]/L Normal 0.270-4.20 0 [facility] Comment on above: Order Comment: Speci men Type: BLOOD SPECIMEN Ordering Facility: [facility] Address: [address] [place] [address] Performed By: #### 3 016-3 #### [facility] CLIA [id number] [address] [facility] [place] [address] [place] Vital Signs Date Time Vital Sign Value Performing Clinician Facility 08-01-2025 07:23-0400 Body height 157.48 cm Broderick Ball DO Work Phone: [facility] 08-01-2025 07:23-0400 Body weight 86.18 kg Broderick Ball DO Work Phone: [facility] 07-18-2025 09:45-0400 Body height 157.5 cm Randa Reilly MD Work Phone: [facility] 07-18-2025 09:45-0400 Body mass index (BMI) [Ratio] 35.12 kg/m2 Randa Reilly MD Work Phone: [facility] 07-18-2025 09:45-0400 Body weight 87.1 kg Randa Reilly MD Work Phone: [facility] 07-18-2025 09:45-0400 Diastolic blood pressure 74 mm[Hg] Randa Reilly MD Work Phone: [facility] 07-18-2025 09:45-0400 Heart rate 82 /min Randa Reilly MD Work Phone: [facility] 07-18-2025 09:45-0400 Systolic blood pressure 124 mm[Hg] Randa Reilly MD Work Phone: [facility] 07-02-2025 14:58-0400 Body height 157.48 cm Broderick Ball DO Work Phone: [facility] 07-02-2025 14:58-0400 Body mass index (BMI) [Ratio] 34.7 kg/m2 Broderick Ball DO Work Phone: [facility] 07-02-2025 14:58-0400 Body weight 86.18 kg Broderick Ball DO Work Phone: [facility] 07-02-2025 14:58-0400 Diastolic blood pressure 70 mm[Hg] Broderick Ball DO Work Phone: [facility] 07-02-2025 14:58-0400 Heart rate 82 /min Broderick Ball DO Work Phone: [facility] 07-02-2025 14:58-0400 Respiratory rate 12 /min Broderick Ball DO Work Phone: [facility] 07-02-2025 14:58-0400 Systolic blood pressure 117 mm[Hg] Broderick Ball DO Work Phone: [facility] 05-21-2025 08:03-0400 Body mass index (BMI) [Ratio] 35.19 kg/m2 Elian Doher DO Work Phone: [facility] 05-21-2025 08:03-0400 Body weight 87.27 kg Elian Doher DO Work Phone: [facility] 05-21-2025 08:03-0400 Diastolic blood pressure 60 mm[Hg] Elian Doher DO Work Phone: [facility] 05-21-2025 08:03-0400 Systolic blood pressure 123 mm[Hg] Elian Doher DO Work Phone: [facility] 04-10-2025 11:10-0400 Body height 157.5 cm Randa Reilly MD Work Phone: [facility] 04-10-2025 11:10-0400 Body mass index (BMI) [Ratio] 34.52 kg/m2 Randa Reilly MD Work Phone: [facility] 04-10-2025 11:10-0400 Body weight 85.6 kg Randa Reilly MD Work Phone: [facility] 04-10-2025 11:10-0400 Diastolic blood pressure 72 mm[Hg] Randa Reilly MD Work Phone: [facility] 04-10-2025 11:10-0400 Heart rate 86 /min Randa Reilly MD Work Phone: [facility] 04-10-2025 11:10-0400 Systolic blood pressure 109 mm[Hg] Randa Reilly MD Work Phone: [facility] 02-22-2025 10:40-0400 Body height 157.48 cm Broderick Ball DO Work Phone: [facility] 02-22-2025 10:40-0400 Body mass index (BMI) [Ratio] 36.1 kg/m2 Broderick Ball DO Work Phone: [facility] 02-22-2025 10:40-0400 Body temperature 96.9 [degF] Broderick Ball DO Work Phone: [facility] 02-22-2025 10:40-0400 Body weight 89.58 kg Broderick Ball DO Work Phone: [facility] 02-22-2025 10:40-0400 Diastolic blood pressure 55 mm[Hg] Broderick Ball DO Work Phone: [facility] 02-22-2025 10:40-0400 Heart rate 76 /min Broderick Ball DO Work Phone: [facility] 02-22-2025 10:40-0400 Respiratory rate 16 /min Broderick Ball DO Work Phone: [facility] 02-22-2025 10:40-0400 SaO2% (BldA) [Mass fraction] 98 % Broderick Ball DO Work Phone: [facility] 02-22-2025 10:40-0400 Systolic blood pressure 133 mm[Hg] Broderick Ball DO Work Phone: [facility] 02-21-2025 13:53-0400 Body height 157.48 cm Broderick Ball DO Work Phone: [facility] 02-21-2025 13:53-0400 Body mass index (BMI) [Ratio] 34.5 kg/m2 Broderick Ball DO Work Phone: [facility] 02-21-2025 13:53-0400 Body weight 85.72 kg Broderick Ball DO Work Phone: [facility] 02-21-2025 13:53-0400 Diastolic blood pressure 72 mm[Hg] Broderick Ball DO Work Phone: [facility] 02-21-2025 13:53-0400 Heart rate 75 /min Broderick Ball DO Work Phone: [facility] 02-21-2025 13:53-0400 SaO2% (BldA) [Mass fraction] 100 % Broderick Ball DO Work Phone: [facility] 02-21-2025 13:53-0400 Systolic blood pressure 122 mm[Hg] Broderick Ball DO Work Phone: [facility] 01-05-2025 11:51-0500 Body height 157.5 cm Svitlana Mayfield [employer] WORKER.[employer] WORKER Work Phone: [facility] 01-05-2025 11:51-0500 Body mass index (BMI) [Ratio] 34.96 kg/m2 Svitlana Mayfield [employer]ING [employer]OM WORKER.H[employer]ICULTURE WORKER Work Phone: [facility] 01-05-2025 11:51-0500 Body weight 86.7 kg Svitlana Mayfield [employer]ING ROOM WORKER.HORTICULTURE WORKER Work Phone: [facility] 01-05-2025 11:51-0500 Diastolic blood pressure 61 mm[Hg] Svitlana Mayfield [employer]ING ROOM WORKER.HORTICULTURE WORKER Work Phone: [facility] 01-05-2025 11:51-0500 Heart rate 86 /min Svitlana Mayfield [employer]ING ROOM WORKER.HORTICULTURE WORKER Work Phone: [facility] 01-05-2025 11:51-0500 Systolic blood pressure 127 mm[Hg] Svitlana Mayfield [employer]ING ROOM WORKER.HORTICULTURE WORKER Work Phone: [facility] 01-04-2025 13:55-0500 Body height 157.5 cm Alejandro Villar MD, PhD Work Phone: [facility] 01-04-2025 13:55-0500 Body mass index (BMI) [Ratio] 35.08 kg/m2 Alejandro Villar MD, PhD Work Phone: [facility] 01-04-2025 13:55-0500 Body weight 87 kg Alejandro Villar MD, PhD Work Phone: [facility] 01-04-2025 13:55-0500 Diastolic blood pressure 61 mm[Hg] Alejandro Villar MD, PhD Work Phone: [facility] 01-04-2025 13:55-0500 Heart rate 86 /min Alejandro Villar MD, PhD Work Phone: [facility] 01-04-2025 13:55-0500 Systolic blood pressure 127 mm[Hg] Alejandro Villar MD, PhD Work Phone: [facility] 12-08-2024 10:08-0500 Body height 157.48 cm Broderick Ball DO Work Phone: [facility] 12-08-2024 10:08-0500 Body mass index (BMI) [Ratio] 33.1 kg/m2 Broderick Ball DO Work Phone: [facility] 12-08-2024 10:08-0500 Body weight 82.15 kg Broderick Ball DO Work Phone: [facility] 12-08-2024 10:08-0500 Diastolic blood pressure 82 mm[Hg] Broderick Ball DO Work Phone: [facility] 12-08-2024 10:08-0500 Heart rate 73 /min Broderick Ball DO Work Phone: [facility] 12-08-2024 10:08-0500 Respiratory rate 12 /min Broderick Ball DO Work Phone: [facility] 12-08-2024 10:08-0500 Systolic blood pressure 141 mm[Hg] Broderick Ball DO Work Phone: [facility] 11-29-2024 13:43-0500 Body height 157.5 cm Aftab Itzkowitz DO Work Phone: [facility] 11-29-2024 13:43-0500 Body mass index (BMI) [Ratio] 35.3 kg/m2 Aftab Itzkowitz DO Work Phone: [facility] 11-29-2024 13:43-0500 Body weight 87.54 kg Aftab Itzkowitz DO Work Phone: [facility] 11-29-2024 13:43-0500 Diastolic blood pressure 85 mm[Hg] Aftab Itzkowitz DO Work Phone: [facility] 11-29-2024 13:43-0500 Systolic blood pressure 125 mm[Hg] Aftab Itzkowitz DO Work Phone: [facility] 11-28-2024 11:04-0500 Body height 157.48 cm Broderick Ball DO Work Phone: [facility] 11-28-2024 11:04-0500 Body mass index (BMI) [Ratio] 34.2 kg/m2 Broderick Ball DO Work Phone: [facility] 11-28-2024 11:04-0500 Body weight 84.93 kg Broderick Ball DO Work Phone: [facility] 11-28-2024 11:04-0500 Diastolic blood pressure 73 mm[Hg] Broderick Ball DO Work Phone: [facility] 11-28-2024 11:04-0500 Heart rate 83 /min Broderick Ball DO Work Phone: [facility] 11-28-2024 11:04-0500 Respiratory rate 12 /min Broderick Ball DO Work Phone: [facility] 11-28-2024 11:04-0500 Systolic blood pressure 117 mm[Hg] Broderick Ball DO Work Phone: [facility] 11-24-2024 16:28-0500 Diastolic blood pressure 67 mm[Hg] Broderick Ball DO Work Phone: [facility] 11-24-2024 16:28-0500 Heart rate 60 /min Broderick Ball DO Work Phone: [facility] 11-24-2024 16:28-0500 Respiratory rate 18 /min Broderick Ball DO Work Phone: [facility] 11-24-2024 16:28-0500 SaO2% (BldA) [Mass fraction] 99 % Broderick Ball DO Work Phone: [facility] 11-24-2024 16:28-0500 Systolic blood pressure 152 mm[Hg] Broderick Ball DO Work Phone: [facility] 11-24-2024 13:52-0500 Body height 157.48 cm Broderick Ball DO Work Phone: [facility] 11-24-2024 13:52-0500 Body temperature 97.6 [degF] Broderick Ball DO Work Phone: [facility] 11-24-2024 13:52-0500 Body weight 89 kg Broderick Ball DO Work Phone: [facility] 11-24-2024 11:16-0500 Body height 157.48 cm [facility] 11-24-2024 11:16-0500 Body mass index (BMI) [Ratio] 34.2 kg/m2 [facility] 11-24-2024 11:16-0500 Body weight 84.82 kg [facility] 11-24-2024 11:16-0500 Diastolic blood pressure 75 mm[Hg] [facility] 11-24-2024 11:16-0500 Heart rate 82 /min [facility] 11-24-2024 11:16-0500 Respiratory rate 12 /min [facility] 11-24-2024 11:16-0500 Systolic blood pressure 133 mm[Hg] [facility] 11-17-2024 13:45-0500 Body height 157.48 cm [facility] 11-17-2024 13:45-0500 Body mass index (BMI) [Ratio] 34.4 kg/m2 [facility] 11-17-2024 13:45-0500 Body weight 85.5 kg [facility] 11-17-2024 13:45-0500 Diastolic blood pressure 76 mm[Hg] [facility] 11-17-2024 13:45-0500 Heart rate 68 /min [facility] 11-17-2024 13:45-0500 Respiratory rate 12 /min [facility] 11-17-2024 13:45-0500 Systolic blood pressure 129 mm[Hg] [facility] 11-03-2024 15:00-0500 Hourly Rounding [facility] Rh[facility] 11-03-2024 15:00-0500 Promise to Return Shashi Rhiew [facility] 11-03-2024 14:00-0500 Hourly Rounding [facility] Rh[facility] 11-03-2024 14:00-0500 Promise to Return Sh[facility] Rhiew [facility] 11-03-2024 13:30-0500 Hourly Rounding [facility] 11-03-2024 13:00-0500 Promise to Return Sh[facility] Rhiew [facility] 11-03-2024 11:27-0500 Heart rate 58 /min [facility] 11-03-2024 11:27-0500 SaO2% (BldA) [Mass fraction] 95 % [facility] Rh[facility] 11-03-2024 11:27-0500 Respiratory rate 16 /min [facility] 11-03-2024 11:27-0500 Diastolic blood pressure 68 mm[Hg] [facility] 11-03-2024 11:27-0500 Mean blood pressure 83 mm[Hg] [facility] 11-03-2024 11:27-0500 Systolic blood pressure 113 mm[Hg] [facility] 11-03-2024 11:27-0500 Body temperature 97.52 [degF] [facility] 11-03-2024 07:43-0500 Heart rate 60 /min [facility] 11-03-2024 07:43-0500 SaO2% (BldA) [Mass fraction] 96 % [facility] Rh[facility] 11-03-2024 07:43-0500 Respiratory rate 16 /min [facility] 11-03-2024 07:42-0500 Body temperature 97.52 [degF] [facility] 11-03-2024 07:42-0500 Diastolic blood pressure 70 mm[Hg] [facility] 11-03-2024 07:42-0500 Mean blood pressure 94 mm[Hg] [facility] 11-03-2024 07:42-0500 Systolic blood pressure 141 mm[Hg] [facility] 11-03-2024 04:31-0500 Heart rate 59 /min [facility] 11-03-2024 04:31-0500 SaO2% (BldA) [Mass fraction] 96 % [facility] 11-03-2024 04:31-0500 Respiratory rate 17 /min [facility] 11-03-2024 04:30-0500 Blood Pressure Location [facility] Rh[facility] 11-03-2024 04:30-0500 Diastolic blood pressure 78 mm[Hg] [facility] 11-03-2024 04:30-0500 Mean blood pressure 99 mm[Hg] [facility] 11-03-2024 04:30-0500 Systolic blood pressure 141 mm[Hg] [facility] 11-03-2024 00:58-0500 Body temperature 97.52 [degF] [facility] 11-02-2024 16:45-0500 Respiratory rate 9 /min [facility] 11-02-2024 16:20-0500 Blood Pressure Location [facility] Rh[facility] 11-02-2024 16:20-0500 Mean blood pressure 91 mm[Hg] [facility] 11-02-2024 16:20-0500 Respiratory rate 11 /min [facility] 11-02-2024 16:05-0500 Blood Pressure Location [facility] Rh[facility] 11-02-2024 16:05-0500 Mean blood pressure 90 mm[Hg] [facility] 11-02-2024 16:05-0500 Respiratory rate 13 /min [facility] 10-27-2024 09:00-0500 Body height 157.48 cm [facility] 10-27-2024 09:00-0500 Body mass index (BMI) [Ratio] 35.2 kg/m2 [facility] 10-27-2024 09:00-0500 Body weight 87.31 kg [facility] 10-27-2024 09:00-0500 Diastolic blood pressure 81 mm[Hg] [facility] 10-27-2024 09:00-0500 Heart rate 69 /min [facility] 10-27-2024 09:00-0500 Respiratory rate 12 /min [facility] 10-27-2024 09:00-0500 Systolic blood pressure 137 mm[Hg] [facility] 09-07-2024 08:48-0400 Body height 157.48 cm DO Broderick Ball Work Phone: [facility] 09-07-2024 08:48-0400 Body mass index (BMI) [Ratio] 35.8 kg/m2 DO Broderick Ball Work Phone: [facility] 09-07-2024 08:48-0400 Body temperature 96.6 [degF] DO Broderick Ball Work Phone: [facility] 09-07-2024 08:48-0400 Body weight 88.9 kg DO Broderick Ball Work Phone: [facility] 09-07-2024 08:48-0400 Diastolic blood pressure 60 mm[Hg] DO Broderick Ball Work Phone: [facility] 09-07-2024 08:48-0400 Heart rate 75 /min DO Broderick Ball Work Phone: [facility] 09-07-2024 08:48-0400 Respiratory rate 16 /min DO Broderick Ball Work Phone: [facility] 09-07-2024 08:48-0400 SaO2% (BldA) [Mass fraction] 98 % DO Broderick Ball Work Phone: [facility] 09-07-2024 08:48-0400 Systolic blood pressure 112 mm[Hg] DO Broderick Ball Work Phone: [facility] 09-05-2024 13:06-0400 Body height 157.5 cm Randa Reilly MD Work Phone: [facility] 09-05-2024 13:06-0400 Body mass index (BMI) [Ratio] 35.93 kg/m2 Randa Reilly MD Work Phone: [facility] 09-05-2024 13:06-0400 Body weight 89.1 kg Randa Reilly MD Work Phone: [facility] 09-05-2024 13:06-0400 Diastolic blood pressure 78 mm[Hg] Randa Reilly MD Work Phone: [facility] 09-05-2024 13:06-0400 Heart rate 84 /min Randa Reilly MD Work Phone: [facility] 09-05-2024 13:06-0400 Systolic blood pressure 133 mm[Hg] Randa Reilly MD Work Phone: [facility] 08-31-2024 09:54-0400 Body height 157.5 cm Kitty Millard MD Work Phone: [facility] 08-31-2024 09:54-0400 Body mass index (BMI) [Ratio] 35.48 kg/m2 Kitty Millard MD Work Phone: [facility] 08-31-2024 09:54-0400 Body weight 88 kg Kitty Millard MD Work Phone: [facility] 08-31-2024 09:54-0400 Diastolic blood pressure 72 mm[Hg] Kitty Millard MD Work Phone: [facility] 08-31-2024 09:54-0400 Heart rate 81 /min Kitty Millard MD Work Phone: [facility] 08-31-2024 09:54-0400 Systolic blood pressure 134 mm[Hg] Kitty Millard MD Work Phone: [facility] 08-30-2024 15:27-0400 Body height 157.48 cm DO Broderick Ball Work Phone: [facility] 08-30-2024 15:27-0400 Body mass index (BMI) [Ratio] 35.5 kg/m2 DO Broderick Ball Work Phone: [facility] 08-30-2024 15:27-0400 Body weight 88.22 kg DO Broderick Ball Work Phone: [facility] 08-30-2024 15:27-0400 Diastolic blood pressure 76 mm[Hg] DO Broderick Ball Work Phone: [facility] 08-30-2024 15:27-0400 Heart rate 83 /min DO Broderick Ball Work Phone: [facility] 08-30-2024 15:27-0400 Respiratory rate 12 /min DO Broderick Ball Work Phone: [facility] 08-30-2024 15:27-0400 Systolic blood pressure 134 mm[Hg] DO Broderick Ball Work Phone: [facility] 08-29-2024 10:50-0400 Body height 157.48 cm DO Broderick Ball Work Phone: [facility] 08-29-2024 10:50-0400 Body mass index (BMI) [Ratio] 35.1 kg/m2 DO Broderick Ball Work Phone: [facility] 08-29-2024 10:50-0400 Body weight 87.08 kg DO Broderick Ball Work Phone: [facility] 08-29-2024 10:50-0400 Diastolic blood pressure 64 mm[Hg] DO Broderick Ball Work Phone: [facility] 08-29-2024 10:50-0400 Heart rate 76 /min DO Broderick Ball Work Phone: [facility] 08-29-2024 10:50-0400 Systolic blood pressure 126 mm[Hg] DO Broderick Ball Work Phone: [facility] 06-29-2024 13:05-0400 Body height 157.5 cm Alejandro Villar MD, PhD Work Phone: [facility] 06-29-2024 13:05-0400 Body mass index (BMI) [Ratio] 34.44 kg/m2 Alejandro Villar MD, PhD Work Phone: [facility] 06-29-2024 13:05-0400 Body weight 85.4 kg Alejandro Villar MD, PhD Work Phone: [facility] 06-29-2024 13:05-0400 Diastolic blood pressure 72 mm[Hg] Alejandro Villar MD, PhD Work Phone: [facility] 06-29-2024 13:05-0400 Heart rate 85 /min Alejandro Villar MD, PhD Work Phone: [facility] 06-29-2024 13:05-0400 Systolic blood pressure 133 mm[Hg] Alejandro Villar MD, PhD Work Phone: [facility] 06-27-2024 14:01-0400 Body height 157.48 cm DO Broderick Ball Work Phone: [facility] 06-27-2024 14:01-0400 Body mass index (BMI) [Ratio] 34.2 kg/m2 DO Broderick Ball Work Phone: [facility] 06-27-2024 14:01-0400 Body weight 84.82 kg DO Broderick Ball Work Phone: [facility] 06-27-2024 14:01-0400 Diastolic blood pressure 74 mm[Hg] DO Broderick Ball Work Phone: [facility] 06-27-2024 14:01-0400 Heart rate 68 /min DO Broderick Ball Work Phone: [facility] 06-27-2024 14:01-0400 Respiratory rate 12 /min DO Broderick Ball Work Phone: [facility] 06-27-2024 14:01-0400 Systolic blood pressure 123 mm[Hg] DO Broderick Ball Work Phone: [facility] 06-08-2024 14:26-0400 Body height 157.48 cm DO Broderick Ball Work Phone: [facility] 06-08-2024 14:26-0400 Body mass index (BMI) [Ratio] 34 kg/m2 DO Broderick Ball Work Phone: [facility] 06-08-2024 14:26-0400 Body temperature 97.6 [degF] DO Broderick Ball Work Phone: [facility] 06-08-2024 14:26-0400 Body weight 84.36 kg DO Broderick Ball Work Phone: [facility] 06-08-2024 14:26-0400 Diastolic blood pressure 70 mm[Hg] DO Broderick Ball Work Phone: [facility] 06-08-2024 14:26-0400 Heart rate 73 /min DO Broderick Ball Work Phone: [facility] 06-08-2024 14:26-0400 Respiratory rate 16 /min DO Broderick Ball Work Phone: [facility] 06-08-2024 14:26-0400 SaO2% (BldA) [Mass fraction] 99 % DO Broderick Ball Work Phone: [facility] 06-08-2024 14:26-0400 Systolic blood pressure 140 mm[Hg] DO Broderick Ball Work Phone: [facility] 05-30-2024 07:27-0400 Body height 157.48 cm DO Broderick Ball Work Phone: [facility] 05-30-2024 07:27-0400 Body weight 86.18 kg DO Broderick Ball Work Phone: [facility] 05-23-2024 11:23-0400 Body height 157.5 cm Randa Reilly MD Work Phone: [facility] 05-23-2024 11:23-0400 Body mass index (BMI) [Ratio] 34.55 kg/m2 Randa Reilly MD Work Phone: [facility] 05-23-2024 11:23-0400 Body weight 85.68 kg Randa Reilly MD Work Phone: [facility] 05-23-2024 11:23-0400 Diastolic blood pressure 72 mm[Hg] Randa Reilly MD Work Phone: [facility] 05-23-2024 11:23-0400 Heart rate 85 /min Randa Reilly MD Work Phone: [facility] 05-23-2024 11:23-0400 Systolic blood pressure 133 mm[Hg] Randa Reilly MD Work Phone: [facility] 04-21-2024 10:00-0400 Body height 157.48 cm DO Broderick Ball Work Phone: [facility] 04-21-2024 10:00-0400 Body mass index (BMI) [Ratio] 34.5 kg/m2 DO Broderick Ball Work Phone: [facility] 04-21-2024 10:00-0400 Body weight 85.72 kg DO Broderick Ball Work Phone: [facility] 03-29-2024 13:34-0400 Body height 157.48 cm DO Broderick Ball Work Phone: [facility] 03-29-2024 13:34-0400 Body mass index (BMI) [Ratio] 33.3 kg/m2 DO Broderick Ball Work Phone: [facility] 03-29-2024 13:34-0400 Body weight 82.78 kg DO Broderick Ball Work Phone: [facility] 03-29-2024 13:34-0400 Diastolic blood pressure 77 mm[Hg] DO Broderick Ball Work Phone: [facility] 03-29-2024 13:34-0400 Heart rate 73 /min DO Broderick Ball Work Phone: [facility] 03-29-2024 13:34-0400 Respiratory rate 12 /min DO Broderick Ball Work Phone: [facility] 03-29-2024 13:34-0400 Systolic blood pressure 124 mm[Hg] DO Broderick Ball Work Phone: [facility] 03-27-2024 11:25-0400 Body height 157.48 cm DO Broderick Ball Work Phone: [facility] 03-27-2024 11:25-0400 Body weight 84.36 kg DO Broderick Ball Work Phone: [facility] 03-07-2024 08:53-0400 Body height 157.5 cm Randa Reilly MD Work Phone: [facility] 03-07-2024 08:53-0400 Body mass index (BMI) [Ratio] 34.06 kg/m2 Randa Reilly MD Work Phone: [facility] 03-07-2024 08:53-0400 Body weight 84.46 kg Randa Reilly MD Work Phone: [facility] 03-07-2024 08:53-0400 Diastolic blood pressure 72 mm[Hg] Randa Reilly MD Work Phone: [facility] 03-07-2024 08:53-0400 Heart rate 85 /min Randa Reilly MD Work Phone: [facility] 03-07-2024 08:53-0400 Systolic blood pressure 133 mm[Hg] Randa Reilly MD Work Phone: [facility] 02-09-2024 14:58-0400 Body height 161.29 cm [facility] 02-09-2024 14:58-0400 Body mass index (BMI) [Ratio] 33.5 kg/m2 [facility] 02-09-2024 14:58-0400 Body weight 87.08 kg [facility] 02-09-2024 14:58-0400 Diastolic blood pressure 71 mm[Hg] [facility] 02-09-2024 14:58-0400 Heart rate 78 /min [facility] 02-09-2024 14:58-0400 Respiratory rate 12 /min [facility] 02-09-2024 14:58-0400 Systolic blood pressure 114 mm[Hg] [facility] 12-23-2023 09:02-0500 Body height 157.5 cm Alejandro Villar MD, PhD Work Phone: [facility] 12-23-2023 09:02-0500 Body temperature 97.59 [degF] Alejandro Villar MD, PhD Work Phone: [facility] 12-23-2023 09:02-0500 Body weight 86.64 kg Alejandro Villar MD, PhD Work Phone: [facility] 12-23-2023 09:02-0500 Diastolic blood pressure 72 mm[Hg] Alejandro Villar MD, PhD Work Phone: [facility] 12-23-2023 09:02-0500 Heart rate 85 /min Alejandro Villar MD, PhD Work Phone: [facility] 12-23-2023 09:02-0500 SaO2% (BldA) [Mass fraction] 100 % Alejandro Villar MD, PhD Work Phone: [facility] 12-23-2023 09:02-0500 Systolic blood pressure 133 mm[Hg] Alejandro Villar MD, PhD Work Phone: [facility] 09-08-2023 14:50-0400 Body height 157.5 cm Mirian Bell [employer] WORK[employer] WORKER Work Phone: [facility] 09-08-2023 14:50-0400 Body weight 86.5 kg Mirian Bell [employer] WORKER.H[employer]ICULTURE WORKER Work Phone: [facility] 09-08-2023 14:50-0400 Diastolic blood pressure 64 mm[Hg] Mirian Bell [employer]ING [employer] WORKER.H[employer]ICULTURE WORKER Work Phone: [facility] 09-08-2023 14:50-0400 Heart rate 62 /min Mirian Bell [employer] WORKER.H[employer]IC[employer]URE WORKER Work Phone: [facility] 09-08-2023 14:50-0400 Systolic blood pressure 130 mm[Hg] Mirian Bell [employer] WORKER.H[employer]IC[employer]URE WORKER Work Phone: [facility] 08-25-2023 10:20-0400 Body height 161.29 cm Niki Blades Other [facility] Other 08-25-2023 10:20-0400 Body mass index (BMI) [Ratio] 34.35 kg/m2 Niki Blades Other [facility] Other 08-25-2023 10:20-0400 Body weight 89.36 kg Niki Blades Other [facility] Other 08-16-2023 10:00-0400 Body height 161.29 cm Niki Blades Other [facility] Other 08-16-2023 10:00-0400 Body mass index (BMI) [Ratio] 34.35 kg/m2 Niki Blades Other [facility] Other 08-16-2023 10:00-0400 Body weight 89.36 kg Niki Blades Other [facility] Other 08-05-2023 07:21-0400 Body temperature 97.8 [degF] DO Broderick Ball Work Phone: [facility] 08-05-2023 07:21-0400 Diastolic blood pressure 73 mm[Hg] DO Broderick Ball Work Phone: [facility] 08-05-2023 07:21-0400 Heart rate 63 /min DO Broderick Ball Work Phone: [facility] 08-05-2023 07:21-0400 Respiratory rate 14 /min DO Broderick Ball Work Phone: [facility] 08-05-2023 07:21-0400 SaO2% (BldA) [Mass fraction] 97 % DO Broderick Ball Work Phone: [facility] 08-05-2023 07:21-0400 Systolic blood pressure 117 mm[Hg] DO Broderick Ball Work Phone: [facility] 08-05-2023 06:00-0400 Body weight 96.7 kg DO Broderick Ball Work Phone: [facility] 08-04-2023 00:00-0400 Inhaled oxygen flow rate 3 L/min DO Borderick Ball Work Phone: [facility] 08-03-2023 07:02-0400 Body height 157.48 cm DO Broderick Ball Work Phone: [facility] 08-03-2023 07:02-0400 Body mass index (BMI) [Ratio] 35 kg/m2 DO Broderick Ball Work Phone: [facility] 07-07-2023 14:20-0400 Body height 161.29 cm Niki Blades Other [facility] Other 07-07-2023 14:20-0400 Body mass index (BMI) [Ratio] 33.65 kg/m2 Niki Blades Other [facility] Other 07-07-2023 14:20-0400 Body weight 87.54 kg Niki Blades Other [facility] Other 07-07-2023 14:20-0400 Diastolic blood pressure 80 mm[Hg] Niki Blades Other [facility] Other 07-07-2023 14:20-0400 Systolic blood pressure 142 mm[Hg] Niki Blades Other [facility] Other 06-04-2023 08:42-0400 Body height 162.56 cm DO Broderick Ball Work Phone: [facility] 06-04-2023 08:42-0400 Body weight 87.08 kg DO Broderick Ball Work Phone: [facility] 05-06-2023 14:30-0400 Body height 161.29 cm Bertram Sanders Other [facility] Other 05-06-2023 14:30-0400 Body mass index (BMI) [Ratio] 33.3 kg/m2 Bertram Sanders Other [facility] Other 05-06-2023 14:30-0400 Body weight 86.64 kg Bertram Sanders Other [facility] Other 05-06-2023 14:30-0400 Diastolic blood pressure 70 mm[Hg] Bertram Sanders Other [facility] Other 05-06-2023 14:30-0400 Systolic blood pressure 125 mm[Hg] Bertram Sanders Other [facility] Other 05-03-2023 14:30-0400 Body height 161.29 cm Broderick Ball Other [facility] Other 05-03-2023 14:30-0400 Body mass index (BMI) [Ratio] 33.16 kg/m2 Broderick Ball Other [facility] Other 05-03-2023 14:30-0400 Body weight 86.27 kg Broderick Ball Other [facility] Other 05-03-2023 14:30-0400 Diastolic blood pressure 71 mm[Hg] Broderick Ball Other [facility] Other 05-03-2023 14:30-0400 Respiratory rate 12 /min Broderick Ball Other [facility] Other 05-03-2023 14:30-0400 Systolic blood pressure 120 mm[Hg] Broderick Ball Other [facility] Other 03-25-2023 11:00-0400 Body height 161.29 cm Broderick Ball Other [facility] Other 03-25-2023 11:00-0400 Body mass index (BMI) [Ratio] 33.61 kg/m2 Broderick Ball Other [facility] Other 03-25-2023 11:00-0400 Body weight 87.45 kg Broderick Ball Other [facility] Other 03-25-2023 11:00-0400 Diastolic blood pressure 78 mm[Hg] Broderick Ball Other [facility] Other 03-25-2023 11:00-0400 Respiratory rate 12 /min Broderick Ball Other [facility] Other 03-25-2023 11:00-0400 Systolic blood pressure 135 mm[Hg] Broderick Ball Other [facility] Other 01-07-2023 14:15-0500 Body height 161.29 cm Bertram Sanders Other [facility] Other 01-07-2023 14:15-0500 Body mass index (BMI) [Ratio] 32.25 kg/m2 Bertram Sanders Other [facility] Other 01-07-2023 14:15-0500 Body weight 83.92 kg Bertram Sanders Other [facility] Other 01-07-2023 14:15-0500 Diastolic blood pressure 85 mm[Hg] Bertram Sanders Other [facility] Other 01-07-2023 14:15-0500 Systolic blood pressure 155 mm[Hg] Bertram Sanders Other [facility] Other 11-25-2022 11:00-0500 Body height 161.29 cm Broderick Ball Other [facility] Other 11-25-2022 11:00-0500 Body mass index (BMI) [Ratio] 32.25 kg/m2 Broderick Ball Other [facility] Other 11-25-2022 11:00-0500 Body weight 83.92 kg Broderick Ball Other [facility] Other 11-25-2022 11:00-0500 Diastolic blood pressure 78 mm[Hg] Broderick Ball Other [facility] Other 11-25-2022 11:00-0500 Respiratory rate 12 /min Broderick Ball Other [facility] Other 11-25-2022 11:00-0500 Systolic blood pressure 118 mm[Hg] Broderick Ball Other [facility] Other 09-10-2022 13:48-0400 Body height 157.5 cm Alejandro Villar MD, PhD Work Phone: [facility] 09-10-2022 13:48-0400 Body weight 88.27 kg Alejandro Villar MD, PhD Work Phone: [facility] 09-10-2022 13:48-0400 Diastolic blood pressure 86 mm[Hg] Alejandro Villar MD, PhD Work Phone: [facility] 09-10-2022 13:48-0400 Heart rate 76 /min Alejandro Villar MD, PhD Work Phone: [facility] 09-10-2022 13:48-0400 Systolic blood pressure 148 mm[Hg] Alejandro Villar MD, PhD Work Phone: [facility] 07-23-2022 10:09-0400 Body height 160 cm Kitty Millard MD Work Phone: [facility] 07-23-2022 10:09-0400 Body weight 88 kg Kitty Millard MD Work Phone: [facility] 07-23-2022 10:09-0400 Diastolic blood pressure 66 mm[Hg] Kitty Millard MD Work Phone: [facility] 07-23-2022 10:09-0400 Heart rate 63 /min Kitty Millard MD Work Phone: [facility] 07-23-2022 10:09-0400 Systolic blood pressure 136 mm[Hg] Kitty Millard MD Work Phone: [facility] 01-06-2022 11:30-0500 Body height 161.29 cm Bertram Sanders Other [facility] Other 01-06-2022 11:30-0500 Body mass index (BMI) [Ratio] 30.68 kg/m2 Bertram Sanders Other [facility] Other 01-06-2022 11:30-0500 Body weight 79.83 kg Bertram Sanders Other [facility] Other Encounters Encounter Date Encounter Type Care Provider Facility Start: 08-01-2025 End: 08-01-2025 Patient encounter procedure Tiana Brush T[facility] FELLER-C -[facility] [place] Work Phone: Start: 08-01-2025 End: 08-01-2025 ambulatory Broderick Howard DO Work Phone: [facility] [place] Work Phone: Start: 07-23-2025 End: 07-23-2025 ambulatory Tiana Brush Facility:[facility] Start: 07-23-2025 Non-patient / Non-visit [facility] Bec[facility] Start: 07-18-2025 End: 07-18-2025 Patient encounter procedure Randa Reilly MD Work Phone: Neurology Comment on above: Intractable 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 aura and without status migrainosus (Primary Dx) Start: 07-18-2025 End: 07-18-2025 ambulatory RANDA REILLY Facility:[facility] Start: 07-02-2025 End: 07-02-2025 ambulatory Broderick Howard DO Work Phone: [facility] Work Phone: Start: 07-02-2025 End: 07-02-2025 Patient encounter procedure Broderick Howard DO -[facility] Work Phone: Start: 05-21-2025 End: 05-21-2025 Office outpatient new 45 minutes Elian Jones DO Work Phone: Neurology Comment on above: Chronic pain syndrom e (Primary Dx); MCI (mild cognitive impairment); Sinus node dysfunction (HCC); Obesity, Class II, BMI 35-39.9 Start: 05-21-2025 End: 05-21-2025 ambulatory ELIAN JONES Facility:[facility] Start: 04-10-2025 End: 04-10-2025 Patient encounter procedure Randa Reilly MD Work Phone: Neurology Comment on above: Intractable 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 aura and without status migrainosus (Primary Dx) Start: 04-10-2025 End: 04-10-2025 ambulatory RANDA REILLY Facility:[facility] Start: 02-22-2025 End: 02-22-2025 ambulatory Broderick Howard DO Work Phone: [facility] Work Phone: Start: 02-22-2025 End: 02-22-2025 Patient encounter procedure Broderick Howard DO Work Phone: [facility] Nephrology [facility] Work Phone: Start: 02-21-2025 End: 02-21-2025 ambulatory Broderick Hoawrd DO Work Phone: [facility] Work Phone: Start: 02-21-2025 End: 02-21-2025 Patient encounter procedure Broderick Howard DO Work Phone: [facility] Work Phone: Start: 02-12-2025 Non-patient / Non-visit Iesha in Lee DO Work Phone: [facility] Work Phone: Start: 01-23-2025 End: 01-30-2025 Follow-up encounter Alejandro Villar MD, PhD Work Phone: Neurology Start: 01-05-2025 End: 01-05-2025 Patient encounter procedure Svitlana Mayfield APRN.HORTICULTURE WORKER Work Phone: Neurology Comment on above: Intractable 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 aura and without status migrainosus (Primary Dx) Start: 01-05-2025 End: 01-05-2025 ambulatory SVITLANA MAYFIELD Facility:[facility] Start: 01-04-2025 End: 01-04-2025 Patient encounter procedure Alejandro Villar MD, PhD Work Phone: Neurology Comment on above: Localization-related (focal) (partial) symptomatic epilepsy and epileptic syndromes with complex partial seizures, intractable, without status epilepticus (HCC) (Primary Dx); Memory loss Start: 01-04-2025 End: 01-04-2025 ambulatory ALEJANDRO VILLAR Facility:[facility] Start: 12-13-2024 End: 12-13-2024 Office outpatient visit 15 minutes Aftab Dey DO Work Phone: [facility] Comment on above: Abdominal wall hemat garrett, subsequent encounter (Primary Dx) Start: 12-13-2024 End: 12-13-2024 ambulatory AFTAB H ITZKOWITZ Not Available Start: 12-09-2024 End: 12-11-2024 Refill Lauren Otero HORTICULTURE WORKER Work Phone: Neurology Comment on above: Refill Request Start: 12-08-2024 End: 12-08-2024 ambulatory Broderick Howard DO Work Phone: [facility] Work Phone: Start: 12-08-2024 End: 12-08-2024 Patient encounter procedure Broderick Howard DO Work Phone: [facility] Work Phone: Start: 11-29-2024 End: 11-29-2024 Office outpatient new 45 minutes Aftab H Itzkowitz DO Work Phone: [facility] Comment on above: Abdominal wall hemat garrett, initial encounter (Primary Dx) Start: 11-29-2024 End: 11-29-2024 ambulatory AFTAB H ITZKOWITZ Not Available Start: 11-28-2024 End: 11-28-2024 ambulatory Broderick Howard DO Work Phone: [facility] Work Phone: Start: 11-28-2024 End: 11-28-2024 Patient encounter procedure Broderick Howard DO Work Phone: [facility]ician [facility] Work Phone: Start: 11-24-2024 End: 11-24-2024 Emergency department patient visit Broderick Howard DO Work Phone: [facility] [place]-Emergency Room Work Phone: Start: 11-24-2024 End: 11-24-2024 ambulatory [facility] Work Phone: Start: 11-24-2024 End: 11-24-2024 Patient encounter [facility]: Start: 11-17-2024 End: 11-17-2024 ambulatory [facility] Work Phone: Start: 11-17-2024 End: 11-17-2024 Patient encounter procedure [facility] Work Phone: Start: 11-02-2024 End: 11-03-2024 ambulatory Shashi B Rhiew Facility:[facility] Start: 11-02-2024 End: 11-03-2024 Patient encounter procedure Shashi B Rhiew [facility] Start: 10-27-2024 End: 10-27-2024 Encounter for other preprocedural examination [facility] Start: 10-27-2024 End: 10-27-2024 Patient encounter procedure [facility] Work Phone: Start: 10-25-2024 Non-patient / Non-visit [facility] Work Phone: Start: 10-25-2024 End: 10-25-2024 ambulatory Shashi B Rhiew Facility:[facility] Start: 10-23-2024 End: 10-23-2024 ambulatory Shashi B Rhiew Facility:[facility] Start: 10-23-2024 End: 10-23-2024 Patient encounter procedure Shashi B Rhiew [facility] Start: 10-02-2024 End: 10-02-2024 ambulatory KITTY WALTERS MILLARD Facility:[facility] Start: 09-07-2024 End: 09-07-2024 ambulatory DO Broderick Lee Work Phone: [facility] Work Phone: Start: 09-07-2024 End: 09-07-2024 Patient encounter procedure DO Broderick Howard Work Phone: [facility] Physician [facility] Nephrology Sunny Work Phone: Start: 09-05-2024 End: 09-05-2024 Patient encounter procedure Randa Reilly MD Work Phone: Neurology Comment on above: Intractable 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 aura and without status migrainosus (Primary Dx) Start: 09-05-2024 End: 09-05-2024 ambulatory RANDA REILLY Facility:[facility] Start: 08-31-2024 End: 08-31-2024 ambulatory KITTY MILLARD Facility:[facility] Start: 08-31-2024 End: 08-31-2024 Office outpatient visit 25 minutes Kitty Millard MD Work Phone: Cardiology Comment on above: 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); Cardiac pacemaker in situ; Bradycardia Start: 08-30-2024 End: 08-30-2024 ambulatory DO Broderick Ball Work Phone: [facility] Work Phone: Start: 08-30-2024 End: 08-30-2024 Patient encounter procedure DO Broderick Ball Work Phone: [facility] Work Phone: Start: 08-29-2024 End: 08-29-2024 ambulatory DO Broderick Ball Work Phone: [facility] Work Phone: Start: 08-29-2024 End: 08-29-2024 Patient encounter procedure DO Broderick Ball Work Phone: [facility] Work Phone: Start: 08-29-2024 End: 08-29-2024 ambulatory DO Broderick Ball Work Phone: [facility] Work Phone: Start: 08-29-2024 End: 08-29-2024 Patient encounter procedure DO Broderick Ball Work Phone: [facility] Gastroenterology Work Phone: Start: 08-28-2024 Non-patient / Non-visit DO Miguel A camargo Ball Work Phone: [facility] Work Phone: Start: 07-05-2024 Non-patient / Non-visit DO Miguel A Howard Work Phone: [facility] Work Phone: Start: 07-05-2024 End: 07-05-2024 ambulatory DO Broderick Howard Work Phone: [facility] Work Phone: Start: 07-05-2024 End: 07-05-2024 Departed Referred DO Broderick Howard Work Phone: [facility]-LAB Path [facility] Start: 06-29-2024 Non-patient / Non-visit DO Miguel A Howard Work Phone: [facility] Work Phone: Start: 06-29-2024 End: 06-29-2024 Patient encounter procedure Alejandro Villar MD, PhD Work Phone: Neurology Comment on above: Focal epilepsy with impairment of consciousness, intractable (HCC) (Primary Dx); Partial epilepsy with impairment of consciousness, intractable (HCC) Start: 06-27-2024 End: 06-27-2024 ambulatory DO Broderick Howard Work Phone: [facility] Work Phone: Start: 06-27-2024 End: 06-27-2024 Patient encounter procedure DO Broderick Howard Work Phone: [facility] Work Phone: Start: 06-12-2024 End: 06-12-2024 ambulatory JACK POMPA Not Available Start: 06-08-2024 End: 06-08-2024 ambulatory DO Broderick Ball Work Phone: [facility] Work Phone: Start: 06-08-2024 End: 06-08-2024 Patient encounter procedure DO Broderick Ball Work Phone: [facility] Physician [facility] Nephrology Sunny Work Phone: Start: 06-05-2024 Non-patient / Non-visit DO Miguel A Howard Work Phone: [facility] Physician [facility] Work Phone: Start: 06-05-2024 End: 06-05-2024 ambulatory Keith Parks MD Facility:[facility] Start: 05-30-2024 End: 05-30-2024 ambulatory DO Broderick Howard Work Phone: [facility] Work Phone: Start: 05-30-2024 End: 05-30-2024 Patient encounter procedure DO Broderick Howard Work Phone: [facility] [place] Work Phone: Start: 05-23-2024 End: 05-23-2024 Patient encounter procedure Randa Reilly MD Work Phone: Neurology Comment on above: Intractable 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 aura and without status migrainosus (Primary Dx) Start: 05-15-2024 Non-patient / Non-visit DO Miguel A Howard Work Phone: [facility] Work Phone: Start: 05-15-2024 End: 05-15-2024 ambulatory Keith Parks MD Facility:[facility] Start: 05-05-2024 Non-patient / Non-visit DO Miguel A camargo Lee Work Phone: [facility] Work Phone: Start: 05-03-2024 End: 05-03-2024 ambulatory DAVID MCFADDEN Not Available Start: 04-21-2024 End: 04-21-2024 ambulatory DO Broderick Howard Work Phone: [facility] Work Phone: Start: 04-21-2024 End: 04-21-2024 Patient encounter procedure DO Broderick Howard Work Phone: [facility] Neurosurgery Work Phone: Start: 03-29-2024 End: 03-29-2024 Patient encounter procedure DO Broderick Lee Work Phone: [facility] Work Phone: Start: 03-28-2024 End: 03-28-2024 Patient encounter procedure DO Broderick Howard Work Phone: [facility] [place] Work Phone: Start: 03-09-2024 End: 03-09-2024 ambulatory DO Broderick Howard Work Phone: [facility] [place] Work Phone: Start: 03-09-2024 End: 03-09-2024 Patient encounter procedure DO Broderick Howard Work Phone: [facility]-Pacemaker Check Start: 03-08-2024 Follow-up encounter Kitty Millard MD Work Phone: [facility] Start: 03-08-2024 Patient encounter procedure Kitty Millard MD Work Phone: [facility] Start: 03-07-2024 End: 03-07-2024 Patient encounter procedure Randa Reilly MD Work Phone: Neurology Comment on above: Intractable 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 aura and without status migrainosus (Primary Dx); Cervicalgia; SHELL (obstructive sleep apnea) Start: 03-03-2024 Non-patient / Non-visit DO Miguel A camargo Ball Work Phone: [facility] Physician [facility] Work Phone: Start: 02-15-2024 Non-patient / Non-visit DO Miguel A camargo Ball Work Phone: [facility] Work Phone: Start: 02-10-2024 Non-patient / Non-visit DO Miguel A camargo Ball Work Phone: [facility] Phys[facility] Work Phone: Start: 02-09-2024 End: 02-09-2024 ambulatory [facility] Work Phone: Start: 02-09-2024 End: 02-09-2024 Patient encounter procedure [facility] Physician [facility] Work Phone: Start: 12-23-2023 End: 12-23-2023 Patient encounter procedure Alejandro Villar MD, PhD Work Phone: Neurology Comment on above: Intractable 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 aura and without status migrainosus (Primary Dx) Start: 11-24-2023 End: 11-24-2023 ambulatory Broderick Lee Other [facility] [employer] Other Start: 11-24-2023 Office outpatient vi sit 15 minutes Broderick Howard [facility] Start: 11-24-2023 End: 11-24-2023 Patient encounter procedure [facility] Work Phone: Start: 09-13-2023 Refill Alejandro wright MD, PhD Work Phone: Neurology Comment on above: Refill Request Patient Update Start: 09-08-2023 Follow-up encounter Kitty Milladr MD Work Phone: [facility] Start: 09-08-2023 End: 09-08-2023 Patient encounter procedure Kitty Millard MD Work Phone: [facility] Comment on above: 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); Cardiac pacemaker in situ; Bradycardia Start: 08-25-2023 End: 08-25-2023 ambulatory Niki Blades Other [facility] Other Start: 08-25-2023 Postop follow up vis it related to original px Niki Blades [facility] Neurosurgery Start: 08-16-2023 End: 08-16-2023 ambulatory Niki Blades Other [facility] Other Start: 08-16-2023 Postop follow up vis it related to original px Niki Blades [facility] Start: 08-13-2023 End: 08-13-2023 ambulatory Broderick Ball Other [employer] Other Start: 08-13-2023 Telephone encounter Broderick Howard FP [facility] Start: 08-12-2023 End: 08-12-2023 ambulatory Niki Blades Other [employer] Other Start: 08-12-2023 Postop follow up vis it related to original px Niki Blades [facility] Neurosurgery Start: 08-03-2023 End: 08-05-2023 Admission to same day surgery center DO Broderick Ball Work Phone: [facility]-Surgery Center [place] Start: 08-03-2023 End: 08-05-2023 ambulatory DO Broderick Ball Work Phone: [facility] Work Phone: Start: 08-02-2023 End: 08-02-2023 ambulatory Broderick Ball Other [employer] Other Start: 08-02-2023 Telephone encounter Broderick Howard KARISHMA [facility] Start: 07-20-2023 End: 07-20-2023 ambulatory DO Broderick Ball Work Phone: [facility] Work Phone: Start: 07-20-2023 End: 07-20-2023 Patient encounter procedure DO Broderick Ball Work Phone: [facility]-Pre-Surgical Testing Work Phone: Start: 07-09-2023 End: 07-09-2023 ambulatory Niki Blades Other [employer] Other Start: 07-09-2023 Telephone encounter Niki Blades [facility] [employer] Start: 07-07-2023 End: 07-07-2023 ambulatory Niki Weeks Other [employer] Other Start: 07-07-2023 Office outpatient ne w [address] [facility] Neurosurgery Start: 06-08-2023 Follow-up encounter Kitty Millard MD Work Phone: [facility] Start: 06-08-2023 Pacemaker Remote F/U Kitty Millard MD Work Phone: [facility] Start: 06-04-2023 ambulatory Facility:[id number] Start: 06-04-2023 End: 06-04-2023 ambulatory DO Broderick Howard Work Phone: [facility] Work Phone: Start: 06-04-2023 End: 06-04-2023 Patient encounter procedure DO Broderick Howard Work Phone: [facility]-MRI [place] Work Phone: Start: 05-14-2023 ambulatory Facility:9 0 Start: 05-14-2023 End: 05-14-2023 ambulatory DO Broderick Howard Work Phone: [facility] Work Phone: Start: 05-14-2023 End: 05-14-2023 Patient encounter procedure DO Broderick Howard Work Phone: [facility]-Pacemaker Check Start: 05-06-2023 End: 05-06-2023 ambulatory Bertram Sanders Other [employer] Other Start: 05-06-2023 Patient encounter procedure Bertram Sanders [facility] Gastroenterology Start: 05-03-2023 End: 05-03-2023 ambulatory Broderick Lee Other [employer] Other Start: 05-03-2023 Office outpatient vi sit 15 minutes Broderick Howard [facility] Start: 05-03-2023 Telephone encounter Broderick SCHWARZ [facility] Start: 03-29-2023 End: 04-14-[address] BRODERICK HOWARD [facility] [employer] Other Start: 03-29-2023 Telephone encounter Broderick SCHWARZ [facility] Start: 03-25-2023 End: 03-25-2023 ambulatory Broderick Howard Other [employer] Other Start: 03-25-2023 Office outpatient vi sit 25 minutes Broderick Howard [facility] Start: 03-15-2023 End: 04-14-2023 ambulatory AGUILAR H FAWWAD Facility:[facility] Start: 02-24-2023 Follow-up encounter Kitty Millard MD Work Phone: [facility] Start: 02-24-2023 Pacemaker Remote F/U Kitty Millard MD Work Phone: [facility] Start: 02-15-2023 End: 03-12-2023 ambulatory AGUILAR H FAWWAD Facility:[facility] Start: 02-03-2023 End: 02-03-2023 ambulatory Bertram Sanders Other [facility] Other Start: 02-03-2023 Telephone encounter Bertram SCHWARZ G Gastroenterology Start: 01-13-2023 End: 02-12-2023 ambulatory AGUILAR H FAWWAD Facility:[facility] Start: 01-07-2023 End: 01-07-2023 ambulatory Bertram Shannony Other [facility] Other Start: 01-07-2023 Patient encounter procedure Bertram GERMAIN Gastroenterology Start: 12-16-2022 End: 01-13-2023 ambulatory AGUILAR H FAWWAD Facility:[facility] Start: 11-25-2022 End: 11-25-2022 ambulatory Broderick Howard Other [facility] Other Start: 11-25-2022 Follow-up encounter Kitty Millard MD Work Phone: [facility] Start: 11-25-2022 Office outpatient vi sit 25 minutes Broderick GERMAIN [facility] Start: 11-25-2022 Pacemaker Remote F/U Kitty Millard MD Work Phone: [facility] Start: 11-23-2022 Patient encounter procedure Broderick Howard Other [facility] Other Start: 11-16-2022 End: 12-16-2022 ambulatory AGUILAR H FAWWAD Facility:[facility] Start: 10-15-2022 Adult health examination Niki Blades Other [facility] Other Start: 10-15-2022 Gynecological examination normal Niki Blades Other [facility] Other Start: 10-15-2022 End: 11-15-2022 ambulatory AGUILAR H FAWWAD Facility:[facility] Start: 09-15-2022 End: 10-14-2022 ambulatory AGUILAR H FAWWAD Facility:[facility] Start: 09-10-2022 End: 09-10-2022 Patient encounter procedure Alejandro Villar MD, PhD Work Phone: Neurology Comment on above: 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, intractable (HCC) Start: 08-26-2022 Follow-up encounter Kitty Millard MD Work Phone: [facility] Start: 08-26-2022 Pacemaker Remote F/U Kitty Millard MD Work Phone: [facility] Start: 08-16-2022 End: 09-14-2022 ambulatory AGUILAR [...] 01-06-2022 End: 01-06-2022 ambulatory Bertram Sanders Other [facility] Other Start: 01-06-2022 Patient encounter procedure Bertram Sanders [facility] Gastroenterology Start: 10-14-2020 End: 10-14-2020 Pre-procedure evaluation check Niki Blades Other [facility] Other Procedures Date Procedure Procedure Detail Performing [...] Start: 06-29-2027 Diabetes Screening Diabetes Screenin g [facility] Start: 04-10-2026 BP Controlled (<130/80) BP Controlle d (<130/80) [facility] Start: 01-09-2026 End: 01-09-2026 Patient encounter procedure 01/09/2026 11:00 AM EST Office Visit Neurology [address] [place] [address] Alejandro Villar MD, PhD [address] [place] [address] annaul follow up Neurology Comment on above: annaul follow up Start: 01-05-2026 BP Controlled (<130/80) BP Controlle d (<130/80) [facility] Start: 01-04-2026 BP Controlled (<130/80) BP Controlle d (<130/80) [facility] Start: 10-30-2025 End: 10-30-2025 Patient encounter procedure 10/30/2025 10:30 AM EST Office Visit Neurology [address] [place] [address] [place] [address] [place] [address] Botox Neurology Comment on above: Botox Start: 07-18-2025 End: 07-18-2025 Patient encounter procedure 07/18/2025 10:00 AM EDT Office Visit Neurology [address] [place] [address] [place] [address] [address]/[facility] [place] [address] Botox Neurology Comment on above: Botox Start: 07-16-2025 Influenza vaccination Influenza Vacc ine (#1) [facility] Start: 07-02-2025 Patient referral [facility] Work Phone: Start: 05-21-2025 End: 05-21-2025 Patient encounter procedure 05/21/2025 8:00 AM EDT Office Visit Neurology [address] [id number] Elian Jones DO [address] [place] [address] [phone] MCI (mild cognitive impairment) [G31.84] Neurology Comment on above: MCI (mild cognitive impairment) [G31.84] Start: 04-10-2025 End: 04-10-2025 Patient encounter procedure 04/10/2025 11:30 AM EDT Office [facility] Neu[facility] [address] [facility] [place] [place] [address] [place] [id number]/[facility] [place] [address] [id number] Botox Neurology Comment on above: Botox Start: 2025 RSV Vaccine (1 - 1-d ose 75+ series) RSV Vaccine (1 - 1-dose 75+ series) [facility] Start: 01-05-2025 End: 01-05-2025 Patient encounter procedure 01/05/2025 12:00 PM EST Office Visit Neurology [address] [place] [address] Svitlana Mayfield APRN.HORTICULTURE WORKER [address] [place] [address] Botox Neurology Comment on above: Botox Start: 01-04-2025 End: 01-04-2025 Patient encounter procedure 01/04/2025 2:00 PM EST Office Visit Neurology [address] [place] [address] Alejandro Villar MD, PhD [address] [place] [address] Follow up Neurology Comment on above: Follow up Start: 12-12-2024 End: 12-12-2024 Patient encounter procedure 12/12/2024 11:00 AM EST Office Visit Neurology [address] [place] [address] [place] [address] [address] [place] [address] Botox Neurology Comment on above: Botox Start: 11-28-2024 DIABETES SCREEN DIABETES SCREEN [facility] Start: 11-28-2024 Diabetes Screening Diabetes Screenin g [facility] Start: 11-24-2024 [facility] Start: 11-24-2024 Bacteria identified in Blood by Culture Blood Culture [facility] Start: 11-15-2024 Advance Directive Discussion Advance Directive Discussion [facility] Start: 11-15-2024 Medicare Advantage A nnual Wellness Visit Medicare Advantage Annual Wellness Visit [facility] Start: 10-02-2024 End: 10-02-2024 Patient encounter procedure 10/02/2024 2:40 PM EST Office Visit Cardiology [id number] [place] [id number] echo Cardiology Comment on above: echo Start: 09-05-2024 End: 09-05-2024 Patient encounter procedure 09/05/2024 1:30 PM EDT Office Visit Neurology [address] [place] [address] [place] [id number] [place], [place] [id number] Botox Neurology Comment on above: Botox Start: 08-31-2024 End: 08-31-2024 Patient encounter procedure 08/31/2024 10:00 AM EDT Office Visit Cardiology [id number] [place] [address] [place] [address] [place], [place] [id number] return in about 1 year (around 09/08/2024) Cardiology Comment on above: return in about 1 ye ar (around 09/08/2024) Start: 07-16-2024 Covid-19 Vaccine ( season) Covid-19 Vaccine () [facility] Start: 07-16-2024 Influenza vaccination Influenza Vacc ine (#1) [facility] Start: 06-29-2024 End: 06-29-2024 Patient encounter procedure 06/29/2024 1:00 PM EDT Office Visit Neurology [id number] [place] [address] Alejandro Villar MD, PhD [address] [place], [place] [id number] Follow Up-rescheduled from 06/22 Neurology Comment on above: Follow Up-reschedule d from 06/22 Start: 04-21-2024 Patient referral [facility] Work Phone: Start: 11-15-2023 Advance Directive Discussion Advance Directive Discussion [facility] Start: 08-05-2023 [facility] Start: 08-03-[address] [facility] Start: 08-03-2023 [facility] Start: 07-16-2023 Covid-19 Vaccine ( season) Covid-19 Vaccine () [facility] Start: 07-16-2023 Influenza vaccination [facility] Start: 11-15-2022 ADVANCE DIRECTIVE DISCUSSION ADVANCE DIRECTIVE DISCUSSION [facility] Start: 09-10-2022 End: 11-10-2022 levETIRAcetam [Mass/volume] in Serum or Plasma [facility] Work Phone: Comment on above: Expected: 09/10/2022 , Expires: 11/10/2022 Start: 09-10-2022 End: 11-10-2022 Zonisamide [Mass/volume] in Serum or Plasma [facility] Work Phone: Comment on above: Expected: 09/10/2022 , Expires: 11/10/2022 Start: 07-16-2022 Influenza vaccination INFLUENZA (#1) [facility] Start: 04-30-2022 Screening for malign ant neoplasm of colon [facility] Start: 11-15-2021 ADVANCE DIRECTIVE DISCUSSION ADVANCE DIRECTIVE DISCUSSION [facility] Start: 02-04-2019 Pneumococcal Vaccine : 50+ (2 of 2 - PCV) Pneumococcal Vaccine: 50+ (2 of 2 - PCV) [facility] Start: 02-04-2019 Pneumococcal Vaccine : 65+ (2 - PCV) Pneumococcal Vaccine: 65+ (2 - PCV) [facility] Start: 02-04-2019 Pneumococcal Vaccine : 65+ (2 of 2 - PCV) Pneumococcal Vaccine: 65+ (2 of 2 - PCV) [facility] Start: 2015 BONE DENSITY BONE DENSITY [facility] Start: 2015 Bone Density Screening Bone Density Screening [facility] Start: 2015 Pneumococcal Vaccine : 65+ Years (1 of 1 - PCV) Pneumococcal Vaccine: 65+ Years (1 of 1 - PCV) [facility] Start: 2015 PNEUMOCOCCAL: 65+ (1 - PCV) PNEUMOCOCCAL: 65+ (1 - PCV) [facility] Start: 2015 Screening for osteoporosis Bone Dens ity Screening [facility] Start: 2010 RSV Vaccine (1 - 1-d ose 60+ series) RSV Vaccine (1 - 1-dose 60+ series) [facility] Start: 2010 RSV Vaccine (1 - Ris k 60-74 years 1-dose series) RSV Vaccine (1 - Risk 60-74 years 1-dose series) [facility] Start: 2000 SHINGRIX VACCINE (1 of 2) MONCADA GRIX VACCINE (1 of 2) [facility] Start: 1995 COLOGUARD (FIT-DNA) COLOGUARD (FIT-D NA) [facility] Start: 1995 Colonoscopy COLONOSCOPY [facility] Start: 1995 COLORECTAL CANCER SCREENING COLORECTAL CANCER SCREENING [facility] Start: [address] COLONOGRAPHY [facility] Start: 1995 FECAL OCCULT BLOOD FECAL OCCULT BLOO D [facility] Start: 1995 Lipid 1996 panel - S akila or Plasma Lipid Screening [facility] Start: 1995 Lipid panel Lipid Screening [facility] Start: 1995 LIPID SCREEN LIPID SCREEN [facility] Start: 1995 Screening for malign ant neoplasm of colon [facility] Start: 1995 SIGMOIDOSCOPY SIGMOIDOSCOPY [facility] Start: 1990 Mammography [facility] Start: 1990 Screening for malign ant neoplasm of breast [facility] Start: 1969 Urine microalbumin profile [facility] Start: 1968 ANNUAL PCP TEAM POWER SYSTEM ENGINEER RAVINDRA DISEASE VISIT ANNUAL PCP TEAM CHRONIC DISEASE VISIT [facility] Start: 1968 BP CONTROLLED (<130/80) BP CONTROLLE D (<130/80) [facility] Start: 1968 HEPATITIS C SCREENING HEPATITIS C [facility] Start: 1968 Hepatitis C screening Hepatitis C [facility] Start: 1950 COVID-19 VACCINE (#1) COVID-19 VACCI NE (#1) [facility] Start: 1950 Screening for malign ant neoplasm of colon [facility] BACH SCREENING TEST BACH SCREENI NG TEST Procedures Routine Memory loss Ordered: 01/04/2025 [facility] Work Phone: Comment on above: Ordered: 01/04/2025 End: 07-23-2023 ECG COMPLETE ECG COMPLETE ECG Routine Chronic fatigue 1 Occurrences starting 07/23/2022 until 07/23/2023 [facility] Work Phone: Comment on above: 1 Occurrences starti ng 07/23/2022 until 07/23/2023 ECG COMPLETE ECG COMPLETE ECG Routine Sinus node dysfunction (HCC) Cardiac pacemaker in situ Bradycardia Ordered: 09/08/2023 [facility] Work Phone: Comment on above: Ordered: 09/08/2023 ECG COMPLETE ECG COMPLETE ECG Routine Sinus node dysfunction (HCC) Ordered: 08/31/2024 [facility] Work Phone: Comment on above: Ordered: 08/31/2024 End: 08-31-2025 Echocardiography ECHO Cardiology Routine Sinus node dysfunction (HCC) 1 Occurrences starting 08/31/2024 until 08/31/2025 [facility] Comment on above: 1 Occurrences starti ng 08/31/2024 until 08/31/2025 MG Breast - bilatera l Screening [facility] MG Breast - bilatera l Screening [facility] Patient Education [facility] Work Phone: Patient referral [facility] Work Phone: Renal function 1999 panel - Serum or Plasma [facility] Renal function 1999 panel - Serum or Plasma [facility] Renal function 1999 panel - Serum or Plasma [facility] US Lower extremity v ein - bilateral [facility] US Lower extremity v ein - right [facility] Immunizations Immunization Date Immunization Notes Care Provider Veena [facility] 08-29-2024 influenza, high dose seasonal, preservative-free DO Broderick Howard Work Phone: [facility] 08-29-2024 influenza virus vaccine, unspecified formulation Elian Jones DO Work Phone: [facility] 08-31-2023 influenza virus vaccine, unspecified formulation Randa Reilly MD Work Phone: [facility] 07-30-2022 influenza virus vaccine, split virus (incl. purified surface antigen) Niki Weeks Other [employer] Other 07-30-2022 influenza virus vaccine, unspecified formulation [facility] 09-10-2021 COVID-19 mRNA-1273 (Moderna) DO [employer] Work Phone: [facility] 07-30-2021 influenza virus vaccine, split virus (incl. purified surface antigen) Niki Blades Other [employer] Other 07-30-2021 influenza virus vaccine, unspecified formulation [facility] 01-14-2021 COVID-19 mRNA-1273 (Moderna) DO [employer] Work Phone: [facility] 12-17-2020 COVID-19 mRNA-1273 (Moderna) DO [employer] Work Phone: [facility] 09-03-2020 influenza virus vaccine, split virus (incl. purified surface antigen) Niki Blades Other [employer] Other 09-03-2020 influenza virus vaccine, unspecified formulation [facility] 08-23-2019 influenza virus vaccine, split virus (incl. purified surface antigen) Niki Blades Other [employer] Other 08-23-2019 influenza virus vaccine, unspecified formulation [facility] 09-07-2018 influenza virus vaccine, split virus (incl. purified surface antigen) Niki Blades Other [employer] Other 09-07-2018 influenza virus vaccine, unspecified formulation [facility] 02-04-2018 pneumococcal polysaccharide vaccine, 23 valent Niki Blades Other [facility] Payers Date Payer Category Payer Self-pay [id number] 2024 Medicare (Managed Care) 1.2. [id number] 2024 Unknown [employer]IC[employer] ELITE [id number] 2024-Present [phone] [address] [place] [address] HMO [id number] 2024 Unknown [id number] 2021 Unknown [id number] 2015 Private Health Insurance FLORY JUAREZ MEDICARE SUPPLEMENT [id number] 2015-Present [phone] [address] [place] [address] Indemnity [id number] 2013 Medicare [id number] [id number] 2008 Unknown [place] BC/BS [id number] 1959 Medicare [id number] 2.16.840.1.604761.19 1959 Medicare [id number] 2.16.840.1.813147.19 1950 Unknown [id number] 2.840.1.703160.3.579.2 .593 1950 Unknown [id number] .840.1.369314.3.579.2 .593 1950 Unknown [id number] 2.840.1.249285.3.579.2 .59 1950 Unknown [id number] 2.16.840.1.658569.3.579.2 .593 1950 Unknown [id number] 2.16.840.1.884193.3.579.2 .593 1950 Unknown [id number] 2.16.840.1.153060.3.579.2 .593 1950 Unknown [id number] 2.16.840.1.581443.3.579.2 .593 1950 Unknown [id number] 2.16.840.1.640139.3.579.2 .593 1950 Unknown [id number] 2.16.840.1.858542.3.579.2 .593 1950 Unknown [id number] 2.16.840.1.754691.3.579.2 .593 1950 Unknown [id number] 2.840.1.304642.3.579.2 .593 1950 Unknown [id number] 2.840.1.563680.3.579.2 .593 1950 Unknown [id number] 2.840.1.244332.3.579.2 .593 1950 Unknown [id number] 2.840.1.756996.3.579.2 .593 1950 Unknown [id number] 2.840.1.805111.3.579.2 .593 1950 Unknown [id number] 2.840.1.912895.3.579.2 .593 1950 Unknown [id number] 2.840.1.284609.3.579.2 .593 1950 Unknown [id number] 2.16.840.1.461214.3.579.2 .356 1950 Unknown [id number] 2.16.840.1.948318.3.579.2 .356 1950 Unknown [id number] 2.16.840.1.585897.3.579.2 .196 1950 Unknown [id number] 2.16840.1.706558.3.579.2 .196 1950 Unknown [id number] 2.16.840.1.836862.3.579.2 .727 1950 Unknown [id number] 2.16.840.1.420204.3.579.2 .72 1950 Unknown [id number] 2.16.840.1.390015.3.579.2 .72 1950 Unknown [id number] 2.16.840.1.185560.3.579.2 .1950 Unknown [id number] 2.16.840.1.390282.3.579.2 .1950 Unknown [id number] 2.16840.1.871652.3.579.2 .1258 1950 Unknown [id number] 2.16840.1.778586.3.579.2 .1258 1950 Unknown [id number] 2.840.1.590389.3.579.2 .1258 1950 Unknown [id number] 2.16840.1.764417.3.579.2 .1258 1950 Unknown [id number] 2.840.1.339652.3.579.2 .1258 1950 Unknown [id number] 2.16840.1.439584.3.579.2 .1258 1950 Unknown [id number] 2.840.1.256981.3.579.2 .727 Medicare Medicare [id number] Unknown [id number] 2.16840.1.852033.3.579.2 .531 Unknown [id number] 2.840.1.949724.3.579.2 .531 Unknown [id number] 2.16840.1.904274.3.579.2 .531 Social History Date Type Detail Facility Start: 09-10-2022 End: 09-08-2023 Sex Assigned At [facility] Start: 02-19-2011 End: 11-24-2024 Tobacco smoking status NHIS Never smoked tobacco [facility] Start: 02-19-2011 End: 09-10-2022 Tobacco use and exposure Smokeless tobacco non-user [facility] Start: 11-28-2021 End: 07-18-2025 Alcohol intake Current non-drinker of alcohol (finding) [facility] Start: 1950 Sex Assigned At Not on file [facility] Start: 07-13-2022 End: 09-10-2022 Exposure to SARS-CoV-2 (event) Not sure [facility] Start: 1950 Sex Assigned At Female F [facility] Start: 09-10-2022 End: 09-08-2023 History of Social function [facility] Start: 10-16-2012 Adult Depression Screening Assessment 2 [facility] Tobacco smoking status No Smokin g Status Entered [facility] Start: 11-17-2024 End: 02-22-2025 Sex Female (finding) [facility] Start: 11-29-2024 Alcoholic beverage intake Current drinker of alcohol (finding) [facility] Medical Equipment Procedure Code Equipment Code Equipment Origin al Text Equipment Identifier Dates Plate Bn 12mm Cm f Ti 2 H Lp - [id number] Start: 08-16-2015 Pin Crss Sd Scr 1.5x4mm - [id number] Start: 08-16-2015 [id number] Advisa [id number] Start: 05-22-2015 [id number] [employer] Novus [id number] Start: 05-22-2015 [id number] [employer] Novus [id number] Start: 05-22-2015 Goals Date Patient Goal Desired Activity /State Personal health goal Functional Status Date Assessment Result Facility 11-02-2024 Functional Status No [facility] 08-05-2023 Functional status Patient at Baseline [facility] Work Phone: 08-19-2015 Are you deaf, or do you have serious difficulty hearing No 08/19/2015 11:02 AM EDT Vita Gibbs (Rn) (Hist), RN No [facility] 08-19-2015 Are you blind, or do you have serious difficulty seeing, even when wearing glasses No 08/19/2015 11:02 AM Vita ElizondoRn) (Hist), RN No [facility] 08-19-2015 Do you have serious difficulty walking or climbing stairs No 08/19/2015 11:02 AM XANDERT Vita GibbsRn) (Hist), RN No [facility] 08-19-2015 Do you have difficul ty dressing or bathing Yes 08/19/2015 11:02 AM Vita Elizondo (Rn) (Hist), RN Yes [facility] 08-19-2015 Because of a physica l, mental, or emotional condition, do you have difficulty doing errands alone such as visiting a physician's office or shopping Yes 08/19/2015 11:02 AM XANDERT Vita Gibbs) (Hist), RN Yes [facility] Mental Status Date Assessment Result Facility 08-05-2023 Cognitive function Cognitive Sta tus Patient at Baseline [facility] Work Phone: 08-19-2015 Because of a physica l, mental, or emotional condition, do you have serious difficulty concentrating, remembering, or making decisions No 08/19/2015 11:02 AM Vita Elizondo) (Hist), RN No [facility] Clinical Notes 01-24-2015 to 07-18-2025 Randa Reilly MD - 07/18/2025 10:24 AM Lon Mcleod RN - 07/18/2025 9:59 AM Randa Allen MD - 07/18/2025 10:23 AM Randa Allen MD - 07/18/2025 10:23 AM EDT Note Date & Type Note Facility 07-18-2025 Note HNO ID: [id number] Author: RANDA REILLY MD Service: ? Author Type: Physician Type: Progress Notes Filed: 07/18/2025 12:52 Note Text: PROGRESS NOTE- HEADACHE MEDICINE SERVICE DATE: July 18, 2025 Location: [facility] neurological institute Participants: patient, and provider [...] or WENDY Randa Reilly MD [facility] 07-18-2025 History of Presen t illness Narrative PROGRESS NOTE- HEADACHE MEDICINE SERVICE DATE: July 18, 2025 Location: [facility] Participants: patient, and provider HPI: Here for [...] with me or WENDY Randa Reilly MD [facility] [place] Patient name and confirmed. Patient states she would like to receive Botox treatment today. 2 vials of Botox A (100 units in each) reconstituted with 2.2 cc of normal saline in each vial. Botox drawn up into four, 1 cc syringes. Each syringe containing 50 units of Botox. Assisted by: Robyn Blanc RN Botox, 2 vials: Lot # [id number] Exp 09/2027 Lot # [id number] 09/[address] Reilly to administer and verified order. documented in this encounter [facility] 07-18-2025 Note HNO ID: [id number] Author: RANDA REILLY MD Service: ? Author [...] Injection Sites Muscle Fixed Site/Fixed Dose Bilat Director Of Corporate Sales 20 U divided in 2 sites Procerus [...] wasted: 0 Randa Reilly MD [facility] 07-18-2025 Procedure note BOTOX PROCEDURE NOTE UNIVERSAL PROTOCOL / SAFETY CHECKLIST Procedure to be performed: Ranad Reilly MD Sign in Communication: Completed Time [...] Injection Sites Muscle Fixed Site/Fixed Dose Bilat Director Of Corporate Sales 20 U divided in 2 sites Procerus [...] Units wasted: 0 Randa Reilly MD [facility] 07-18-2025 Procedure note BOTOX PROCEDURE NOTE [...] Injection Sites Muscle Fixed Site/Fixed Dose Bilat Director Of Corporate Sales 20 U divided in 2 sites Procerus [...] Total Units wasted: 0 Randa Reilly MD [facility] Neurological [place] documented in this encounter [facility] 07-18-2025 Note HNO ID: [id number] Author: LON ALEXANDER RN Service: ? Author [...] Blanc RN Botox, 2 vials: Lot # [id number] Exp 09/2027 Lot # [id number] Exp 09/[address] Reilly to administer and verified order. [facility] 07-02-2025 Evaluation note Diagnosis Onset Date [...] for breast cancer noneactive July 02 2:50pm [facility] Work Phone: 1(263) 444-684607-07-2025 Instructions* Patient Instructions* Jyoti Crowley MD - [...] much intensity you could go. Source : www.[employer]ilLuxe[employer] Dietary Modifications: Increase the amount of vegetables [...] high glycemic index: instant rice, mashed potatoes, Burkinan fries bagels, baguettes, vanilla wafers processed cereals (Cheerios, [place]-Puffs, corn/bran flakes, Total, etc.) Avoid foods high in total fat, especially saturated fats and cholesterol Eat foods rich in [place]-3 fatty acids (fish, olive oil, nuts) For More Information on the Mediterranean and the MIND Diet Visit: https://www.deena.nih.gov/health/al mmfjlrkd-qsi-crfladvr/pxhm-lx-dr-mwfs-raqvf-ntrl-eqh-hrvlbdvrxz-sdejhtxxbv-disea se Source : [employer] Memory Workouts: In some studies, participation in [...] a Musical Instrument Dancing (ballroom) Computer Games/Apps: SecureWaters or e[employer]aring phone application Tasks to improve attention/working memory: [...] et al. The Lancet, Volume 396, Issue 24549, [phone] Patient Education Section : Fall Prevention As [...] include walking, swimming, and Panda Chi (a Austrian martial art that involves slow, gentle movements). [...] your health and independence. [facility] NoteHNO ID: [id number] Author: KALIN GUAMAN OCCA Service: ? 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 Vital Signs: There were no vitals taken for this visit.[facility]07-07-2025 History of Present illness Narrative* Kalin Guaman OCCA - 05/21/2025 8:03 AM EDT Cassi Rodrigez is a 75 year old year old left handed woman Accompanied by: spouse. 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 Vital Signs: There were no vitals taken for this visit. * Elian Jones DO - 05/21/2025 8:00 AM EDT Images from the original note were not included. [facility] New Patient Evaluation Cassi Rodrigez : 1950 05/21/2025 8:00 AM Chief Complaint: memory concern I had the pleasure of seeing this 75 year old year old female at the [place] [facility]. The patient is referred [...] She was advised to follow up at [facility] for further evaluation of her memory [...] Version 7.1 Total Score: 27/30 Visuospatial/Executive Alternating [place] Making: Patient successfully draws the pattern without [...] which included preparing to see the patient, mnhr-yb-gwam patient care, performing a medically appropriate examination, [...] 05/23/2025 Time: 2:35 PM [facility] NoteHNO ID: [id number] Author: ELIAN JONES DO Service: ? Author Type: Physician Type: Progress Notes Filed: 05/23/2025 14:36 Note Text: Regina Herrera [facility] New Patient Evaluation Cassi Rodrigez : 1950 05/21/2025 8:00 AM Chief Complaint: memory concern I had the pleasure of seeing this 75 year old year old female at the [facility]. The patient is referred by Dr. Alejandro [...] She was advised to follow up at [facility] for further evaluation of her memory [...] medication for their flor (more content not included)...[facility]05-27-2025 NoteHNO ID: [id number] Author: RANDA REILLY MD Service: ? Author [...] Injection Sites Muscle Fixed Site/Fixed Dose Bilat Director Of Corporate Sales 20 U divided in 2 sites Procerus [...] Total Units wasted: 0 Randa Reilly MD [facility]05-27-2025 Procedure note* Randa Reilly MD - 04/10/2025 [...] procedure note Treatment # 4 Consent in [facility] Dilution: 5 units/0.1 ml ( 100 unit vial with 2 cc diluent or 200 unit vial with 4 cc diluent) Diluent: normal saline Indication: Chronic Intractable Migraine Right temporal metal plate with skin irregularity, no shunt Injection Sites Muscle Fixed Site/Fixed Dose Bilat Director Of Corporate Sales 20 U divided in 2 sites Procerus [...] Units wasted: 0 Randa Reilly MD [facility]05-27-2025 Procedure note* Randa Reilly MD - [...] Injection Sites Muscle Fixed Site/Fixed Dose Bilat Director Of Corporate Sales 20 U divided in 2 sites Procerus [...] Total Units wasted: 0 Randa Reilly MD [facility] [place] documented in this encounterDayton [facility]-2025 NoteHNO ID: [id number] Author: LON ALEXANDER RN Service: ? Author [...] Farfan RN Botox, 2 vials: Lot # [id number] Exp 08/2027 Lot # [id number] Exp 08/[address] Reilly to administer and verified order.[facility] 04-10-2025 History of Present illness Narrative* [...] Farfan RN Botox, 2 vials: Lot # [id number] Exp 08/2027 Lot # [id number] Exp 08/[address] Reilly to administer and verified order. * Randa Reilly MD - 04/10/2025 11:20 AM EDT PROGRESS NOTE- HEADACHE MEDICINE SERVICE DATE: April 10, 2025 Location: [facility] Participants: patient, and provider HPI: Here for [...] me or WENDY Randa Reilly MD [facility] documented in this encounterDayton [facility]25 NoteHNO ID: [id number] Author: RANDA REILLY MD Service: ? Author Type: Physician Type: Progress Notes Filed: 04/10/2025 12:19 Note Text: PROGRESS NOTE- HEADACHE MEDICINE SERVICE DATE: April 10, 2025 Location: [facility] Participants: patient, and provider HPI: Here for [...] with me or WENDY Randa Reilly MD [facility] [facility]25 NoteHNO ID: [id number] Author: DAVINA BRENNAN RN Service: ? Author [...] Hamm RN Botox, 2 vials: Lot # [id number] Exp 02/2027 Lot # [id number] Exp 02/2027 Botox handed to Svitlana Mayfield CNP to administer and verified order.[facility] [id number] History of Present illness Narrative* Davina Brennan [...] Hamm RN Botox, 2 vials: Lot # [id number] Exp 02/2027 Lot # [id number] Exp 02/2027 Botox handed to Svitlana Mayfield [...] for migraine Informed Consent Consent Obtained: Written Cutler Protocol A moment to CARE was completed [...] applicable Written Consent Obtained: Written LOT #: [id number] Expiration Date: Month: Year: 2026 Second vial: LOT #: [id number] Expiration Date: Month: Year: 2026 Injection Sites Left (Units) Left (Sites) Right (Units) Right (Sites) TOTAL (Units) Director Of Corporate Sales 5 1 5 1 10 Procerus Units: [...] which included preparing to see the patient, ixft-pm-wvnt patient care, completing clinical documentation, obtaining and/or reviewing separately obtained history, counseling and educating the patient/family/caregiver, and ordering medications, tests, or procedures. Svitlana Mayfield APRN.NIC documented in this encounterDayton Children'S Hospital02-21-2025 Instructions* Patient Instructions* Svitlana Mayfield APRN.CNP - [...] your next Botox Injection documented in this encounterDayton Children'S Hospital02-21-2025 NoteHNO ID: [id number] Author: SVITLANA MAYFIELD APRN.CNP Service: ? Author [...] for migraine Informed Consent Consent Obtained: Written Cutler Protocol A moment to CARE was completed [...] applicable Written Consent Obtained: Written LOT #: [id number] Expiration Date: Month: 4 Year: 2026 Second vial: LOT #: [id number] Expiration Date: Month: 4 Year: 2026 Injection Sites Left (Units) Left (Sites) Right (Units) Right (Sites) TOTAL (Units) Director Of Corporate Sales 5 1 5 1 10 Procerus Units: [...] no evidence of procedural (more content not included)...[facility] [id number] History of Present illness Narrative* Alejandro Villar MD, PhD - 01/04/2025 2:00 PM EST [facility] Patient Name: Cassi Rodrigez Date of : 1950 ESTABLISHED EPILEPSY CLINIC NOTE 01/04/2025 2:00 PM Reason for Visit: Follow Up Clinical Summary: Ms. Rodrigez is a 74 year old right-handed female seen in [facility]. 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 -Vocation: -Education: -Cigarette, [...] which included: preparing to see the patient rcwz-om-fqxo patient care completing clinical documentation obtaining and/or reviewing separately obtained history counseling and educating the patient/family/caregiver ordering medications, tests, or procedures independently interpreting results (not separately reported) communicating results to the patient/family/caregiver Alejandro Villar MD, PhD cc: Primary Care Physician: Broderick Howard DO [address] [place] [address] Referring: Patient: Ms. Cassi Rodrigez [address] [address] documented in this encounterDayton Children'S Hospital02-20-2025 NoteHNO ID: [id number] Author: ALEJANDRO VILLAR MD, PhD Service: ? Author Type: Physician Type: Progress Notes Filed: 01/04/2025 14:17 Note Text: [facility] Patient Name: Cassi Rodrigez Date of : 1950 ESTABLISHED EPILEPSY CLINIC NOTE 01/04/2025 2:00 PM Reason for Visit: Follow Up Clinical Summary: Ms. Rodrigez is a 74 year old right-handed female seen in [facility]. 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 Requested Prescriptions Signed Prescriptions Disp Refills zonisamide (ZONEGRAN) 100 mg capsule 270 capsule 1 Sig: Take 3 capsules by mouth daily at bedtime. Authorizing Provider: ALEXI COLINDRES PA-C [facility]01-27-2025 Miscellaneous Notes* Telephone Encounter - Alexi Colindres [...] by: patient Please E-Scribe Caller Contact Number: [phone] (home) Pharmacy Name: [facility] Pharmacy Number: [phone] Generic/ brand: generic 30 or 90 day supply requested: 90 Last appointment: 06/29/24 Next Appointment: 01/04/[address] guido Rodrigez [id number] [facility] [address] documented in this encounterDayton Children'S Hospital01-27-2025 Telephone encounter Note * Telephone Encounter - Maranda Moreno - 12/11/2024 10:27 AM EST Prescription Refill: Requested by: patient Please E-Scribe Caller Contact Number: [phone] (home) Pharmacy Name: [facility] Pharmacy Number: [phone] Generic/ brand: generic 30 or 90 day supply requested: 90 Last appointment: 06/29/24 Next Appointment: 01/04/[address] guido Rodrigez [id number] [facility] [address] [facility]01-15-2025 History of Present illness Narrative* Aftab Dey, [...] DAY DIRECTED ergocalciferol (Vitamin D2) 1.25 MG (12435 UT) capsule TAKE 1 CAPSULE BY MOUTH [...] I'll see her PRN documented in this [facility]01-10-2025 Radiology Diagnostic [facility] [place] [address] CT Scan Report Signed Patient: Cassi Rodrigez MR#: [id number] : 1950 Acct:[id number] Age/Sex: 74 / F ADM Date: 5 Loc: ER Room: Type: [facility] ER Attending Dr: Copies to: Kristel [...] Arnel Simon M.D.11/24/2024 3:48 PM Dictation Location: [facility]--17 Transcribed By: [facility] 11/24/24 154 Dictated By: Arnel Simon II, MD 11/24/24 153 Signed By: 11/24/24 1548 [facility] Work Phone: 1(893) 522-840401-10-2025 Evaluation note* Diagnosis Onset Date Resolution Status [...] vein thrombosis) acute February 21, 2025 1:49pm [facility] Work Phone: 1(650) 140-457101-10-2025 Evaluation note* Diagnosis Onset Date Resolution Status [...] Secondary hyperparathyroidism acute February 22, 2025 10:30am [facility] Work Phone: 1(321) 344-741912-30-2024 NoteProgress Note-Physician Patient: CASSI RODRIGEZ Age: 74 [...] to Ambulatory Surgery Unit, and To home ).[facility] HospitalComment on above:Result Comment: Electronically Signed By: Sunny Ramirez Jr., DO.mukesh\Date and Time Signed: 11/13/24 07:01 [id number] NoteDischarge Summary Patient: CASSI RODRIGEZ Age: 74 [...] of other venous thrombosis and embolism intermediate (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 of anticoagulants Epilepsy, unspecified, not [...] mmHg (NOV 03:) DBP 68 mmHg (NOV 03)[facility] HospitalComment on above:Result Comment: Electronically Signed By: Ap PAUL, Shashi Rae.mukesh\Date and Time Signed: 11/03/24 18:13 [id number] Hospital Discharge instructions Patient Education 11/03/2024 14:55:59 [...] sitting in a recliner chair. Only take kcrz-hwa-abrjlns or prescription medicines for pain, discomfort, or [...] Document Reviewed: 11/01/2006 ExitCare Patient Information 2013 ERPLY. Follow Up Care 10/19/2024 10:52:05 With:BRODERICK HOWARD Address: [facility] [address] [place] [address] Business (1) When: Unknown Comments:No need to see PCP at this time unless symptoms worsen. With:Shashi De Souza Address: [address], [address] [place] [address]- [phone] Business (1) When: Unknown Comments:f/u3wks ok shower and remove dressing yhsdt10mbj no lift>5lbs keep incis dry clean. restart coumadin 3 days after surgery. 11-05-24Wednesday. [facility] 12-20-2024 NotePatient Education - Text Lumbar [...] in a recliner chair. ? Only take qjye-duf-oeafmhg or prescription medicines for pain, discomfort, or [...] Document Reviewed: 11/01/2006 ExitCare? 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 Anesthetic Preoperative Plan: Anesthesia General. Diagnostic Tests Pending * Calcium Level Ionized 11/03/24 [facility] 12-20-2024 NoteProgress Note-Physician Basic Information 74-year-old [...] hold for neuro spine surgery, patient has aftum-rjq-rrio compression hose and SCDs Enoxaparin 40 mg daily per surgeon for now 5. 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 Pt. with on AM-PAC this date. She is safe and independent with all functional activities at this time. No further PT needs.[facility]12-19-2024 NoteConsultation Note Reason for Consultation Medical [...] hold for neuro spine surgery, patient has itbcl-ubg-zhbf compression hose and SCDs Enoxaparin 40 mg daily per surgeon for now 5. Anticoagulated (Z79.01: intermediate (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 of anticoagulants) Warfarin prior to [...] tab(s), Oral, Daily carvedil (more content not included)...[facility] HospitalComment on above:Result Comment: Electronically Signed By: Katarzyna Frost CNP\.br\Date and Time Signed: 11/02/24 18:33 EST\.br\Electronically Co-Signed By: Dar NUNEZ MD\.br\Date and Time Co-Signed: 11/02/24 18:54 [id number] NoteProgress Note-Nurse 1615- Pacemaker to right chest interrogated in PACU at this time with Medtronic device. Device stated it transmitted properly.[facility] 11-02-2024 NoteProgress Note-Physician Patient: CASSI RODRIGEZ [...] All Problems Acute asthma / SNOMED CT 1922700896 / Confirmed Bradycardia / SNOMED CT 01699423 / Confirmed Cardiac pacemaker / SNOMED CT 7683477439 / Confirmed Epilepsy / SNOMED CT 061020368 / Confirmed High blood pressure / SNOMED CT 9287642076 / Confirmed History of DVT of lower extremity / SNOMED CT 0525869910 / Confirmed Migraines / SNOMED CT 59768556 / Confirmed Obstructive sleep apnea / SNOMED CT 911168023 / Confirmed Pancreatic cancer / SNOMED CT 645356261 / Confirmed Presence of IVC filter / SNOMED CT 1678401484 / Confirmed, Active Problems (10) Acute asthma Bradycardia Cardiac pacemaker Epilepsy High blood pressure History of DVT of lower extremity Migraines Obstructive sleep apnea Pancreatic cancer Presence of IVC filter , anesthesia summary- obesity, HTN, godfrey/PM, SHELL, mild asthma, remote treatment for pancreatic cancer, controlled siezures, RI, controlld GERD, hx DVT s/p IVCF on chronic anticoagulation, c-spine dz Histori (more content not included)...[facility] HospitalComment on above:Result Comment: Electronically Signed By: Thomas PAUL, Jaun Reese\.br\Date and Time Signed: 11/02/24 13:45 [id number] Evaluation note* Diagnosis Onset Date Resolution Status [...] 9:51am Cellulitis acute December 08, 2024 9:51am [facility] Work Phone: 1(579) 978-805610-22-2024 NoteHNO ID: [id number] Author: RANDA REILLY MD Service: ? Author [...] Injection Sites Muscle Fixed Site/Fixed Dose Bilat Director Of Corporate Sales 20 U divided in 2 sites Procerus [...] Total Units wasted: 0 Randa Reilly MD [facility]10-22-2024 Procedure note* Randa Reilly MD - 09/05/2024 [...] Injection Sites Muscle Fixed Site/Fixed Dose Bilat Director Of Corporate Sales 20 U divided in 2 sites Procerus [...] Units wasted: 0 Randa Reilly MD [facility]10-22-2024 Procedure note* Randa Reilly MD - [...] Injection Sites Muscle Fixed Site/Fixed Dose Bilat Director Of Corporate Sales 20 U divided in 2 sites Procerus [...] Units wasted: 0 Randa Reilly MD [facility] documented in this encounterDayton Children'S Hospital10-22-2024 NoteHNO ID: [id number] Author: RANDA REILLY MD Service: ? Author Type: Physician Type: Progress Notes Filed: 09/05/2024 13:54 Note Text: PROGRESS NOTE- HEADACHE MEDICINE SERVICE DATE: September 05, 2024 Location: [facility] Participants: patient, and provider HPI: Here for [...] 3.Referral to sleep medicine Randa Reilly MD [facility]10-22-2024 History of Present illness Narrative* Randa Reilly MD - 09/05/2024 1:49 PM EDT PROGRESS NOTE- HEADACHE MEDICINE SERVICE DATE: September 05, 2024 Location: [facility] Participants: patient, and provider [...] 3.Referral to sleep medicine Randa Reilly MD [facility] [place] documented in this encounterDayton Children'S Hospital10-22-2024 Nurse Note* Davina Brennan RN - [...] Jewell RN Botox, 2 vials: Lot # [id number] Exp 10/2026 Lot # [id number] Exp 10/[address] Reilly to administer and verified order. [facility]10-22-2024 Nurse Note* Davina Brennan RN - [...] by: Lon Adamsox, 2 vials: Lot # [id number] Exp 10/2026 Lot # [id number] Exp 10/[address] Reilly to administer and verified order. documented in this encounterDayton Children'S Hospital10-17-2024 NoteHNO ID: [id number] Author: KITTY VALENTE MD Service: ? Author Type: Physician Type: Progress Notes Filed: 09/02/2024 00:42 Note Text: Heart and Vascular [place] Guy Renteria Department of Cardiovascular Medicine SECTION OF CARDIAC PACING and ELECTROPHYSIOLOGY OUTPATIENT VISIT DATE NASRIN July 23, 2022 August 31, 2024 OUTPATIENT VISIT TYPE ESTABLISHED PRIMARY CARE PHYSICIAN: Broderick Howard MD ([facility]) [address] [place] [address] CHIEF COMPLAINT: Pacemaker management HISTORY OF PRESENT [...] antiepileptic Rx - well (more content not included)...[facility] 08-31-2024 History of Present illness Narrative* Kitty Valente MD - 08/31/2024 10:04 AM EDT Images from the original note were not included. [facility] [place] Guy Renteria Department of Cardiovascular Medicine SECTION OF CARDIAC PACING and ELECTROPHYSIOLOGY OUTPATIENT VISIT DATE NASRIN July 23, 2022 August 31, 2024 OUTPATIENT VISIT TYPE ESTABLISHED PRIMARY CARE PHYSICIAN: Broderick Howard MD ([facility]) [address] [place] [address] CHIEF COMPLAINT: Pacemaker management HISTORY OF PRESENT [...] of Cardiovascular Medicine Heart, Vascular and Thoracic [place] [facility] Office Office Pager [phone] August 31, 2024 10:18 AM documented in this encounterDayton Children'S Hospital10-16-2024 Evaluation note* Diagnosis Onset Date Resolution [...] 10:54am Cellulitis acute November 28, 2024 10:54am [facility] Work Phone: 1(413) 882-107910-15-2024 Evaluation note* Diagnosis Onset Date Resolution Status [...] medicine non eactive October 27, 2024 8:49am [facility] Work Phone: 1(201) 709-363110-15-2024 Evaluation note* Diagnosis Onset Date Resolution Status [...] 10:35am Cellulitis acute November 24, 2024 10:35am [facility] Work Phone: 1(797) 502-784808-15-2024 History of Present illness Narrative* Alejandro Villar MD, PhD - 06/29/2024 2:41 PM EDT [facility] Patient Name: Cassi Rodrigez Date of : 1950 ESTABLISHED EPILEPSY CLINIC NOTE 06/29/2024 1:00 PM Reason for Visit: Epilepsy Clinical Summary: Ms. Rodrigez is a 74 year old female seen in [facility]. Classification Summary HISTORY OF [...] and s/p lumbar laminectomy in 07/2023. At 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 At [facility] in Dec 2023, ZNS was increased to [...] which included: preparing to see the patient fvfj-dn-ucsv patient care completing clinical documentation obtaining and/or reviewing separately obtained history performing a medically appropriate examination Alejandro Villar MD, PhD cc: Primary Care Physician: Broderick Howard, DO [address] [facility] [address] Referring: Patient: Ms. Cassi Rodrigez [address] [id number] documented in this encounterDayton Children'S Hospital07-09-2024 Nurse Note* Tomasa Farfan RN - [...] Lon VARELA Botox, 2 vials: Lot # [id number] Exp Lot # [id number] Exp Botox handed to Dr. Reilly to administer and verified order. [facility]07-09-2024 Nurse Note* Tomasa Farfan RN - [...] Lon RN Botox, 2 vials: Lot # [id number] Exp Lot # [id number] Exp Botox handed to Dr. Reilly to administer and verified order. documented in this encounterDayton Children'S Hospital07-09-2024 Procedure note* Randa Reilly MD - [...] Injection Sites Muscle Fixed Site/Fixed Dose Bilat Director Of Corporate Sales 20 U divided in 2 sites Procerus [...] Total Units wasted: 0 Randa Reilly MD [facility] [place] [facility]07-09-2024 Procedure note* Randa Reilly MD - [...] Injection Sites Muscle Fixed Site/Fixed Dose Bilat Director Of Corporate Sales 20 U divided in 2 sites Procerus [...] Total Units wasted: 0 Randa Reilly MD [facility] [place] documented in this encounterDayton Children'S Hospital05-01-2024 NoteDUAL CHAMBER PACEMAKER REMOTE EVALUATION: PRESENTING [...] under CARDIAC DATA AND REPORT, Scanned Documents section.[id number] History of Present illness Narrative* Randa Reilly MD - 03/07/2024 9:30 AM EDT PROGRESS NOTE- HEADACHE MEDICINE SERVICE DATE: March 07, 2024 [facility] [place] Participants: patient, and provider HPI: Here for [...] I spent at least 50% of the zfok-pw-duuv time in counseling, explanation of diagnosis, planning of further management, and answering all questions. Randa Reilly MD [facility] [place] documented in this encounterDayton Children'S Hospital02-08-2024 Instructions* Patient Instructions* Lauren Otero APRN.CNP - 12/23/2023 9:42 AM EST To schedule with headache clinic (can schedule at [facility]): [phone] documented in this encounterDayton Children'S Hospital02-08-2024 History of Present illness Narrative* Alejandro Villar MD, PhD - 12/23/2023 9:00 AM EST [facility] CHIEF COMPLAINT: Patient presents [...] She was referred to the headacheclinic at [facility] in the past but at this [...] There is no focal weakness. PREVIOUS EVALUATIONS: [facility], 05/2015: Right Temporal Epilepsy Seizures: [...] know if she decides to pursue at [facility] - she needs for spine doctor, [...] APRN.NIC December 23, 2023 documented in this encounterDayton Children'S Hospital01-10-2024 Evaluation note* Encounter Date Diagnosis Assessment Notes Treatment Notes Treatment Clinical Notes Nov, Acute non-recurrent maxillary sinusitis (ICD-10 - J01.00) Instructed to use Robitussin or Mucinex for cough, saline or Flonase NS for congestion, Tylenol for pain and fever. Nov, Primary hypertension (ICD-10 - I10) Increased risk for more serious, prolonged illness. [facility] Other [id number] Miscellaneous Notes* Telephone Encounter - Mirian Bell APRN.CNP - 09/13/2023 1:53 PM EDT Thank you reviewed scan documents. Mirian Bell APRN.NIC * Telephone Encounter - Brenda Hodges RN - 09/13/2023 7:58 AM EDT Received medical records from [facility] and scanned into chart for review. documented in this encounterDayton Children'S Hospital10-30-2023 Miscellaneous Notes* Telephone Encounter - Daniel [...] Please E-Scribe Caller Contact Number: Pharmacy Name: [facility] Pharmacy Number: [phone] Generic/ brand: 30 or 90 day supply requested: 90 Last appointment: 09/10/22 Next Appointment: 12/09/[address] Villar documented in this encounterDayton Children'S Hospital10-25-2023 Instructions* Patient Instructions* Mirian Bell APRN.CNP - 09/08/2023 3:21 PM EDT Please schedule for device check & in one year Please have patient sign release of medical labs from [facility] had labs last month documented in this encounterDayton Children'S Hospital10-25-2023 History of Present illness Narrative* Mirian Bell APRN.CNP - 09/08/2023 2:30 PM EDT Images from the original note were not included. [facility] [place] Guy Renteria Department of Cardiovascular Medicine SECTION OF CARDIAC PACING and ELECTROPHYSIOLOGY OUTPATIENT VISIT DATE September 08, 2023 OUTPATIENT VISIT TYPE ESTABLISHED PRIMARY CARE PHYSICIAN: Broderick Howard ([facility]) [address] [place] [address] CHIEF COMPLAINT: follow up device management HISTORY [...] right leg DVT (2012), seizure, SHELL, IBS, jail anticoagulation. 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 Annual labs, I will obtain from [facility] she had last month Follow up appointment: Dr. Walters & device check in one year I spent 25 to 30 minutes in the visit, with more than 50% of the total ztdl-bl-rhuf time of the visit in counseling / coordination of care. CONTACT INFORMATION: Mirian Bell APRN.HORTICULTURE WORKER, 09/08/23 [facility] Shashi Templeton [facility] Cardiology Second Floor [address] [place] [address] documented in this encounterDayton Children'S Hospital10-11-2023 Evaluation note* Encounter Date Diagnosis Assessment Notes Treatment Notes Treatment Clinical Notes Aug, Lumbar stenosis with neurogenic claudication (ICD-10 - M48.062) [facility] Other 10-02-2023 Evaluation note* Encounter Date Diagnosis Assessment Notes Treatment Notes Treatment Clinical Notes Aug, Lumbar stenosis with neurogenic claudication (ICD-10 - M48.062) [facility] Other 09-28-2023 Evaluation note* Encounter Date Diagnosis Assessment Notes Treatment Notes Treatment Clinical Notes Jul, Lumbar stenosis with neurogenic claudication (ICD-10 - M48.062) [facility] Other 09-20-2023 Progress note Author Niki Weeks [facility] August 04, 2023 7:57am Note Date/Time August 04, 2023 7:57am [facility] ENTER [address] [place] [address] Neurosurgery Progress Note Signed Patient: Cassi Rodrigez MR#: [id number] : 1950 Acct:[id number] Age/Sex: 73 / F Adm Date: 3 Loc: Room: [address] [place] [address] Type: REG [facility] Attending Dr: Niki Weeks MD Copies to: [...] % (Auto) 91.6, Lymph % (Auto) 4.4, [place] % (Auto) 4.0, Eos % (Auto) 0.0, Baso % (Auto) 0.0, Nucleat RBC Rel Count 0.1, Neut # (Auto) 10.4 H, Lymph #(Auto) 0.5 L, [place] # (Auto) 0.5, Eos # (Auto) 0.0, [...] <Electronically signed by Niki Weeks MD> 08/04/23 0755 [facility] Work Phone: 1(721) 879-108008-23-2023 Evaluation note* Encounter Date Diagnosis Assessment Notes Treatment Notes Treatment Clinical Notes Jun, Lumbar stenosis with neurogenic claudication (ICD-10 - M48.062) [facility] Other 06-22-2023 Evaluation note* Encounter Date Diagnosis [...] will continue with this therapy without change. [facility] Other 06-19-2023 Evaluation note* Encounter Date Diagnosis Assessment Notes Treatment Notes Treatment Clinical Notes Apr, Lumbosacral spondylosis with radiculopathy (ICD-10 - M47.27) [facility] Other 06-19-2023 Evaluation note* Encounter Date Diagnosis [...] until MRI completed MRI being rescheduled for [facility] due to PM Apr, Stage 3b chronic kidney disease (ICD-10 - N18.32) The patient is instructed on adequate control of hypertension and diabetes, if appropriate. They are also educated on the associated risks of NSAIDs and PPI use with kidney disease. They were instructed on adequate fluid balance and to avoid dehydration. Apr, History of lumbar fusion (ICD-10 - Z98.1) [facility] Other 05-15-2023 Evaluation note* Encounter Date Diagnosis Assessment Notes Treatment Notes Treatment Clinical Notes March, Lumbosacral spondylosis with radiculopathy (ICD-10 - M47.27) [facility] Other 05-11-2023 Evaluation note* Encounter Date Diagnosis [...] use, the patient reduces the risk for CO, CVA, HTN, cardiac dysrhythmias and sudden cardiac [...] Other Stable w/o breakthrough Sz. 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 Continue surveillance w/ [facility] Other 2023 Evaluation note* Encounter Date Diagnosis Assessment Notes Treatment Notes Treatment Clinical Notes Jan, Nausea (ICD-10 - R11.0) [facility] Other 02-23-2023 Evaluation note* Encounter Date Diagnosis Assessment Notes Treatment Notes Treatment Clinical Notes Dec, Nausea (ICD-10 - R11.0) Increase Amitriptyline to 15mg at bedtime Dec, Constipation (ICD-10 - K59.00) Start Linzess 72mcg daily Pt to call if symptoms worsen or return Follow up in 4 months [facility] Other 01-11-2023 Evaluation note* Encounter Date Diagnosis [...] use, the patient reduces the risk for CO, CVA, HTN, cardiac dysrhythmias and sudden cardiac [...] to trial Amitiza and discuss w/ GI [facility] Other 10-27-2022 History of Present illness Narrative* Lauren Otero APRN.HORTICULTURE WORKER - 09/10/2022 1:53 PM EDT [facility] CHIEF COMPLAINT: Patient presents [...] She was referred to the [facility]clinic at [facility] in the past but at this [...] There is no focal weakness. PREVIOUS EVALUATIONS: [facility], 05/2015: Right Temporal Epilepsy Seizures: [...] of her complex medical co-morbidities. 3. Perform ANTIOEN and ictal SPECT to confirm the hypothesis [...] by Dr. Alejandro Villar. [facility] History of Present illness Narrative* Kitty Millard MD - 07/23/2022 10:00 AM EDT Images from the original note were not included. Heart [facility] [place] [facility] Department of Cardiovascular Medicine SECTION OF CARDIAC PACING and ELECTROPHYSIOLOGY OUTPATIENT VISIT DATE July 23, 2022 OUTPATIENT VISIT TYPE ESTABLISHED PRIMARY CARE PHYSICIAN: Broderick Howard MD ([facility]) [facility] [place] [address] CHIEF COMPLAINT: Pacemaker management HISTORY OF PRESENT [...] Lymph 1.00 - 4.00 k/uL 0.93 (L) Crittenden% % 7.7 Abs Crittenden <0.87 k/uL 0.32 Eosin% % 5.3 Abs [...] Kitty Millard MD Electrophysiology documented in this encounterDayton [facility]02-22-2022 Evaluation note* Encounter Date Diagnosis Assessment Notes Treatment Notes Treatment Clinical Notes Dec, Nausea (ICD-10 - R11.0) PATIENT STATES THAT THIS HAS IMPROVED. PATIENT TO CONTINUE ON THE AMITRIPTYLINE DOSE AT THIS TIME. [facility] Other 03-12-2015 History of Past illness Narrative* Problem Noted Date Resolved Date Seizure 01/24/2015 06/21/2018 documented as of this encounter (statuses as of 07/23/2022) [address]12-2015 History of Past illness Narrative* Problem Noted Date Resolved Date Seizure 01/24/2015 06/21/2018 documented as of this encounter (statuses as of 08/26/2022) [address]12-2015 History of Past illness Narrative* Problem Noted Date Resolved Date Seizure 01/24/2015 06/21/2018 documented as of this encounter (statuses as of 09/10/2022) [address]-2015 History of Past illness Narrative* Problem Noted Date Resolved Date Seizure 01/24/2015 06/21/2018 documented as of this encounter (statuses as of 11/26/2022) [address]-2015 History of Past illness Narrative* Problem Noted Date Resolved Date Seizure 01/24/2015 06/21/2018 documented as of this encounter (statuses as of 02/25/2023) [address]-2015 History of Past illness Narrative* Problem Noted Date Diagnosed Date Resolved Date Seizure 01/24/2015 06/21/2018 documented as of this encounter (statuses as of 06/17/2023) [address]-2015 History of Past illness Narrative* Problem Noted Date Diagnosed Date Resolved Date Seizure 01/24/2015 06/21/2018 documented as of this encounter (statuses as of 09/08/2023) [address]-2015 History of Past illness Narrative* Problem Noted Date Diagnosed Date Resolved Date Seizure 01/24/2015 06/21/2018 documented as of this encounter (statuses as of 09/09/2023) [facility] of [facility] illness Narrative* Problem Noted Date Diagnosed Date Resolved Date Seizure 01/24/2015 06/21/2018 documented as of this encounter (statuses as of 09/14/2023) [facility] of Past illness Narrative* Problem Noted Date Diagnosed Date Resolved Date Seizure 01/24/2015 06/21/2018 documented as of this encounter (statuses as of 09/14/2023) [facility] of Past illness Narrative* Problem Noted Date Diagnosed Date Resolved Date Seizure 01/24/2015 06/21/2018 documented as of this encounter (statuses as of 12/23/2023) [facility] Author Niki Weeks [facility] August 05, 2023 8:09am Note Date/Time August 05, 2023 8:09am [facility] [address] [place] [address] Discharge Summary Signed Patient: Cassi Rodrigez MR#: [id number] : 1950 Acct:[id number] Age/Sex: 73 / F Adm Date: 3 Loc: Room: 0Q5252-[address]: Niki Weeks MD Copies to: [...] % (Auto) 77.1, Lymph % (Auto) 11.8, [place] % (Auto) 9.2, Eos % (Auto) 1.7, Baso % (Auto) 0.2, Nucleat RBC Rel Count 0.4, Neut # (Auto) 5.6, Lymph # (Auto) 0.9 L, [place] # (Auto) 0.7, Eos # (Auto) 0.1, [...] signed by Niki Weeks MD> 08/05/23 0809 [facility] Work Phone: Evaluation + Plan note Future Appointments Appointment Date:10/25/2024 10:30:00 AM Scheduled Provider: Location:[facility] Appointment Type:Surgical PAT FT Appointment Date:11/02/2024 12:30:00 PM Scheduled Provider: Location:[facility] Appointment Type:Surgery FT [facility] Evaluation note* Diagnosis Chronic fatigue- Primary Other malaise and fatigue [facility] this encounter [facility]* Diagnosis Partial epilepsy with impairment of consciousness, intractable (HCC) Localization-related (focal) (partial) epilepsy and epileptic syndromes with complex partial seizures, with intractable epilepsy [facility] this encounter [facility] noteNo assessment information [facility] Work Phone: evaluation noteNo InformationNocox branson [facility] Other evaluation note* Diagnosis Onset Date Resolution Status Lumbar stenosis with neurogenic claudication acute [facility] Work Phone: Evaluoinvy note* Diagnosis Sinus node dysfunction (HCC)- Primary Sinoatrial node dysfunction Cardiac pacemaker in situ Bradycardia Other specified cardiac dysrhythmias documented [facility] this encounter [facility]* Diagnosis Partial epilepsy with impairment of consciousness, intractable (HCC) Localization-related (focal) (partial) epilepsy and epileptic syndromes with complex partial seizures, with intractable epilepsy [facility] this encounter [facility]* Diagnosis Pacemaker [Z95.0]- Primary Cardiac pacemaker in situ documented [facility] this encounter [facility]* Diagnosis Intractable 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 aura and without status migrainosus- Primary Chronic migraine without aura, with intractable migraine, so stated, without mention of status migrainosus [facility]* Diagnosis Intractable 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 aura and without status migrainosus- Primary Chronic migraine without aura, with intractable migraine, so stated, without mention of status migrainosus Cervicalgia SHELL (obstructive sleep apnea) Obstructive sleep apnea (adult) (pediatric) documented in this encounter [facility]* Diagnosis Onset Date Resolution Status Hypertension acute Lumbar stenosis with neurogenic claudication acute [facility] Work Phone: Evaluation note* Diagnosis Onset Date Resolution Status Hypertension acute Lumbar stenosis with neurogenic claudication acute Age-related osteoporosis wit hout current pathological fracture acute Chronic kidney disease acute Hypertension acute Lumbosacral spondylosis with radiculopathy acute Obstructive sleep apnea acut e [facility] Work Phone: Evaluation note* Diagnosis Intractable 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 aura and without status migrainosus- Primary Chronic migraine without aura, with intractable migraine, so stated, without mention of status migrainosus [facility] this encounter [facility]* Diagnosis Onset Date Resolution Status Age-related osteoporosis wit hout current pathological fracture acute Chronic kidney disease acute Hypertension acute Lumbosacral spondylosis with radiculopathy acute Obstructive sleep apnea acut e Arthropathy of right hip acu te Greater trochanteric bursitis of both hips acute History of lumbar surgery ac [place] Pain of both sacroiliac joints acute [facility] Work Phone: Evaluation note* Diagnosis Onset Date Resolution Status Age-related osteoporosis wit hout current pathological fracture acute Chronic kidney disease acute Hypertension acute Lumbosacral spondylosis with radiculopathy acute Obstructive sleep apnea acut e Arthropathy of right hip acu te Greater trochanteric bursitis of both hips acute History of lumbar surgery ac [place] Pain of both sacroiliac joints acute Anemia of renal disease acut e Chronic kidney disease acute [id number] acute Leukopenia acute Pancreatic cancer acute Secondary hyperparathyroidism acute Vitamin D deficiency acute [facility] Work Phone: Evaluation note* Diagnosis Onset Date Resolution Status Age-related osteoporosis wit hout current pathological fracture acute Chronic kidney disease acute Hypertension acute Lumbosacral spondylosis with radiculopathy acute Obstructive sleep apnea acut e Arthropathy of right hip acu te Greater trochanteric bursitis of both hips acute History of lumbar surgery ac [place] Pain of both sacroiliac joints acute Anemia of renal disease acut e CKD (chronic kidney disease) stage 4, GFR 15-29 ml/min acute [id number] acute Leukopenia acute Secondary hyperparathyroidism acute Age-related osteoporosis wit hout current pathological fracture acute Chronic kidney disease acute Gastroesophageal reflux dise ase with esophagitis without hemorrhage acute History of pancreatic cancer acute Hypertension acute Lumbar stenosis with neurogenic claudication acute Major depression acute Medicare annual wellness visit, subsequent noneactive Screening mammogram for breast cancer noneactive [facility] Work Phone: Evaluation note* Diagnosis Focal epilepsy with impairment of consciousness, intractable (HCC)- Primary Localization-related (focal) (partial) epilepsy and epileptic syndromes with simple partial seizures, with intractable epilepsy Partial epilepsy with impairment of consciousness, intractable (HCC) Localization-related (focal) (partial) epilepsy and epileptic syndromes with complex partial seizures, with intractable epilepsy [facility] this encounter [facility]* Diagnosis Onset Date Resolution Status Arthropathy of right hip acu te Greater trochanteric bursitis of both hips acute History of lumbar surgery ac [place] Pain of both sacroiliac joints acute Anemia of renal disease acut e CKD (chronic kidney disease) stage 4, GFR 15-29 ml/min acute [id number] acute Leukopenia acute Secondary hyperparathyroidism acute Age-related osteoporosis wit hout current pathological fracture acute Chronic kidney disease acute Gastroesophageal reflux dise ase with esophagitis without hemorrhage acute History of pancreatic cancer acute Hypertension acute Lumbar stenosis with neurogenic claudication acute Major depression acute Medicare annual wellness visit, subsequent noneactive Screening mammogram for breast cancer noneactive [facility] Work Phone: Evaluation note* Diagnosis Onset Date Resolution Status Anemia of renal disease acut e CKD (chronic kidney disease) stage 4, GFR 15-29 ml/min acute [id number] acute Leukopenia acute Secondary hyperparathyroidism acute Age-related [...] disease) acute Nausea acute Pancreatic cancer acute [facility] Work Phone: Evaluation note* Diagnosis Sinus node dysfunction (HCC)- Primary Sinoatrial node dysfunction Cardiac pacemaker in situ Bradycardia Other specified cardiac dysrhythmias documented [facility] this encounter [facility]* Diagnosis Intractable 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 aura and without status migrainosus- Primary Chronic migraine without aura, with intractable migraine, so stated, without mention of status migrainosus documented [facility] this encounter [facility]* Diagnosis Onset Date Resolution [...] disease) stage 4, GFR 15-29 ml/min acute [id number] acute Secondary hyperparathyroidism acute [facility] Work Phone: Evaluation note* Diagnosis Abdominal wall hematoma, initial encounter- Primary [facility] Diagnosis Localization-related (focal) (partial) symptomatic epilepsy and epileptic syndromes with complex partial seizures, intractable, without status epilepticus (HCC) documented [facility] this encounter [facility]* Diagnosis Abdominal wall hematoma, subsequent encounter- Primary [facility]* Diagnosis Localization-related (focal) (partial) symptomatic epilepsy and epileptic syndromes with complex partial seizures, intractable, without status epilepticus (HCC)- Primary Memory loss [facility]* Diagnosis Intractable 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 aura and without status migrainosus- Primary Chronic migraine without aura, with intractable migraine, so stated, without mention of status migrainosus [facility]* Diagnosis MCI (mild cognitive impairment)- Primary Mild cognitive impairment, so stated [facility]* Diagnosis Intractable 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 aura and without status migrainosus- Primary Chronic migraine without aura, with intractable migraine, so stated, without mention of status migrainosus [facility]* Diagnosis Chronic pain syndrome- Primary MCI (mild cognitive impairment) Mild cognitive impairment, so stated Sinus node dysfunction (HCC) Sinoatrial node dysfunction Obesity, Class II, BMI 35-39.9 Obesity, unspecified [facility]* Diagnosis Onset Date Resolution Status Admit [...] david st cancer noneactive July 02 2:50pm [facility] Work Phone: Evaluation note* Diagnosis Intractable 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 aura and without status migrainosus- Primary Chronic migraine without aura, with intractable migraine, so stated, without mention of status migrainosus documented in this encounter [facility] general Narrative - Reported* Type Description Date Surgical History back surgery-2 Surgical History cervical fusion Surgical History cholecystectomy Surgical History whipple procedure 2010 Surgical History appendectomy Surgical History hammer toe Surgical History rotator cuff-left Surgical History temporal lumpectomy Hospitalization History see surgical hx [facility] Other [employer] general Narrative - Reported* Type Description Date [...] Essential hypertension Medical History Current use of jail anticoa gulation Medical History History of pancreatic [...] temporal lumpectomy Hospitalization History see surgical hx [facility] Other History general Narrative - Reported* Type [...] Essential hypertension Medical History Current use of watershed engineer anticoa gulation Medical History History of pancreatic [...] Port removal Hospitalization History see surgical hx [facility] Other History general Narrative - Reported* Type [...] sleep apnea Medical History Encounter for [facility] exam with routine gynecological exam [...] Essential hypertension Medical History Current use of watershed engineer anticoa gulation Medical History History of pancreatic [...] L4-5 07/2023 Hospitalization History see surgical hx [facility] Other Hospital course Narrative No data available for this section [facility] Hospital Discharge instructions Additional Instructions Eat a well balanced [facility] Work Phone: Hospital Discharge instructionsAmbulatory Orders* Referral to Orthopedic Surgery Location: None Selected [facility] Work Phone: Hospital Discharge instructions No data available for this section [facility] Hospital Discharge instructions Additional Instructions As discussed you should hold your Coumadin for 5 days Wear abdominal binder as discussed Call Dr. Howard your primary care doctor on Wednesday let him know that you should be evaluated Please return here if you develop any dizziness, chest pain, shortness of breath, fevers, chills increased abdominal swelling, lightheadedness or any other concerns[facility] Work Phone: Progress note Author Niki Weeks [facility] August 05, 2023 8:00am Note Date/Time August 05, 2023 8:00am [facility] [address] [place] [address] Neurosurgery Progress Note Signed Patient: Cassi Rodrigez MR#: [id number] : 1950 Acct:[id number] Age/Sex: 73 / F Adm Date: 3 Loc: Room: [address] [place] [address] Type: REG SDC Attending Dr: Niki Weeks [...] % (Auto) 77.1, Lymph % (Auto) 11.8, [place] % (Auto) 9.2, Eos % (Auto) 1.7, Baso % (Auto) 0.2, Nucleat RBC Rel Count 0.4, Neut # (Auto) 5.6, Lymph # (Auto) 0.9 L, [place] # (Auto) 0.7, Eos # (Auto) 0.1, [...] signed by Niki Weeks MD> 08/05/23 0800 [facility] Work Phone: Progress note No data available for this section [facility] Reason for referral (narrative)* Outpatient Procedure (Routine) - Closed Specialty Diagnoses / Procedures Referred By Contac t Referred To Contact [facility] [place] Diagnoses Chronic fatigue Procedures ECG COMPLETE ECG ROUTINE ECG W/LEAST 12 LDS W/I&[place] [address] [place] [address] [facility][Note 3] Vascular [place] [address] [place] [address] Referral ID Status Reason Start Date Expiration Date V isits Requested Visits Authorized [id number] Closed Auto-Generate d Referral 07/23/2022 07/23/2023 1 1 [facility] for referral (narrative)* Outpatient Procedure (Routine) - Pending Review Specialty Diagnoses / Procedures Referred By Contac t Referred To Contact [facility] [place] Diagnoses Sinus node dysfunction (HCC) Cardiac pacemaker in situ Bradycardia Procedures ECG COMPLETE ECG ROUTINE ECG W/LEAST 12 LDS W/I&R Mirian Bell APRN.CNP [address] [place] [address] [facility][Note 3] Vascular [place] [address] [place] [place] [address] Referral ID Status Reason Start Date Expiration Date Visits Requested Visits Authorized [id number] Pending Review Auto-Generat ed Referral 3 09/07/2024 1 1 [facility] for referral (narrative)* Outpatient Procedure (Routine) - Pending Review Specialty Diagnoses / Procedures Referred By Contac t Referred To Contact [facility] [place] Diagnoses Sinus node dysfunction (HCC) Procedures ECHO ECHO TTHRC R-T 2D W/WOM-MODE COMPL SPEC&[place] [address] [place] [address] [facility][Note 3] Vascular [address] [address] Referral ID Status Reason Start Date Expiration Date Visits Requested Visits Authorized [id number] Pending Review Auto-Generat ed Referral 4 08/31/2025 1 1 * Outpatient Procedure (Routine) - New Request Specialty Diagnoses / Procedures Referred By Saturnino bhatia Referred To Contact [facility] Diagnoses Sinus node dysfunction (HCC) Procedures ECG COMPLETE ECG ROUTINE ECG W/LEAST 12 LDS W/I&[place] [address] [place] [address] [address] [place] [address] Referral ID Status Reason Start Date Expiration Date Visits Requested Visits Authorized [id number] New Request Auto-Generat ed Referral 4 08/31/2025 1 1 [facility] for referral (narrative)No reason for referral information [facility] Work Phone: Reason for visit Narrative* Injectable (Routine) - Authorized Specialty Diagnoses / Procedures Referred By Saturnino t Referred To Contact ADULT NEUROLOGY Diagnoses Chronic migraine without aura, intractable, without status migrainosus Procedures BOTULINUM TOXIN A PER 1 UNIT CHEMODERVATE FACIAL/TRIGEM/[place] [address] [address] [place] [address] Phone: tel: fax: Neurology [address] [place] [address] Phone: tel: fax: Referral ID Status Reason Start Date Expiration Date V isits Requested Visits Authorized [id number] Authorized 03/13/2024 11/14/2025 8 8 [facility] Summary Purpose Family History No Family [...] 2:50pm Screening mammogram for breast cancer [facility] 2024 2:50pm Chief Complaint m47.27 Chief Complaint m47.27 m47.27 Chief Complaint m47.27 m47.27 stenosis Chief Complaint m47.27 m47.27 stenosis stenosis Reason for Visit Lumbar stenosis with neurogenic claudication Chief Complaint Cough , Drainage For Weeks [phone] BACK ISSUES Chief Complaint BACK ISSUES Amb [...] Anemia of renal disease Chronic kidney disease [id number] Leukopenia Pancreatic cancer Secondary hyperparathyroidism Vitamin D [...] kidney disease) stage 4, GFR 15-29 ml/min [id number] Leukopenia Secondary hyperparathyroidism Age-related osteoporosis without current [...] kidney disease) stage 4, GFR 15-29 ml/min [id number] Leukopenia Secondary hyperparathyroidism Age-related osteoporosis without current pathological fracture Chronic kidney disease Gastroesophageal reflux disease with esophagitis without hemorrhage History of pancreatic cancer Hypertension Lumbar stenosis with neurogenic claudication Major depression Medicare annual wellness visit, subsequent Screening mammogram for breast cancer Chief Complaint RENAL CKD MAWV Unknown 1 YR F/U-CONSTIPATION/NAUSEA Reason for Visit Anemia of renal dise [facility] CKD (chronic kidney disease) stage 4, GFR 15-29 ml/min [id number] Leukopenia Secondary hyperparathyroidism Age-related osteoporosis without current [...] Reason for Visit Anemia of renal dise [facility] CKD (chronic kidney disease) stage 4, GFR 15-29 ml/min [id number] Leukopenia Secondary hyperparathyroidism Age-related osteoporosis without current [...] Reason for Visit Anemia of renal dise [facility] CKD (chronic kidney disease) stage 4, GFR 15-29 ml/min [id number] Leukopenia Secondary hyperparathyroidism Age-related osteoporosis without current [...] kidney disease) stage 4, GFR 15-29 ml/min [id number] Secondary hyperparathyroidism Chief Complaint Admit Date 1 [...] 2024 8:49am Preop exam for internal medicine [facility] r 2023 8:49am Chief Complaint Admit Date [...] 2024 8:49am Preop exam for internal medicine [facility] 2023 8:49am Adverse effect of anticoagul [...] 0:35am stomach pain-sent by November 24 1:33pm [facility] ER f/u November 28, 2024 1 [...] 2024 8:49am Preop exam for internal medicine [facility] r 2023 8:49am Adverse effect of anticoagul [...] 0:35am stomach pain-sent by November 24 1:33pm [facility] ER f/u November 28, 2024 1 [...] 2024 8:49am Preop exam for internal medicine [facility] 2023 8:49am Adverse effect of anticoagul [...] 0:35am stomach pain-sent by November 24 1:33pm [facility] ER f/u November 28, 2024 1 [...] 0:35am stomach pain-sent by November 24 1:33pm [facility] ER f/u November 28, 2024 1 [...] By Contac t Referred To Contact [facility] [place] Diagnoses Cervicalgia Procedures CONSULT TO [facility] OFFICE/OUTPATIENT [facility] 60 [place] [address] [place] [phone] Referral ID Status Reason Start Date Expiration Date Visits Requested Visits Authorized [id number] Authorized PCP Requested Referral 03/07/2024 03/07/2025 1 1 Specialty Diagnoses / Procedures Referred By Contac t Referred To Contact Diagnoses SHELL (obstructive sleep apnea) Procedures CONSULT TO SLEEP MEDICINE - ADULT OFFICE/OUTPATIENT [facility] 60 [place] [address] [place] [phone] Referral ID Status Reason Start Date Expiration Date Visits Requested Visits Authorized [id number] Authorized PCP Requested Referral 03/07/2024 03/07/2025 1 1 Specialty Diagnoses / Procedures Referred By Contac t Referred To Contact [facility]ACHE Diagnoses Intractable 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 aura and without status migrainosus Procedures CONSULT TO HEADACHE CLINIC OFFICE/OUTPATIENT [facility] MDM 60 MINUTES Lauren Otero, CONNIE.HORTICULTURE WORKER [address] [place] [phone] Neur Headache Main [address] [place] [id number] Referral ID Status Reason Start Date Expiration Date Visits Requested Visits Authorized [id number] Authorized PCP Requested Referral 12/23/2023 12/22/2024 1 1 Additional Source Comments REASON FOR VISIT (unrecogniz ed section and content) Reason Comments Established Patient Botox treatment Chronic Migraine Specialty Diagnoses / Procedures Referred By Contac t Referred To Contact ADULT NEUROLOGY Diagnoses Chronic migraine without aura, intractable, without status migrainosus Procedures BOTULINUM TOXIN A PER 1 UNIT CHEMODERVATE FACIAL/TRIGEM/[place] [id number] [place] [address] Phone: tel: fax: Neurology [address] [place] [id number] Phone: tel: fax: Referral ID Status Reason Start Date Expiration Date V isits Requested Visits Authorized [id number] Authorized 03/13/2024 11/14/2025 8 8 Reason Comments [...] Procedures CONSULT TO HEADACHE CLINIC OFFICE/OUTPATIENT [facility] MDM 60 MINUTES Lauren Otero, CONNIE.HORTICULTURE WORKER [address] [place] [phone] Neur Headache Main [address] [place] [id number] Referral ID Status Reason Start Date Expiration Date V isits Requested Visits Authorized [id number] Closed PCP Requested Referral 12/23/2023 12/22/2024 1 1 Reason Comments Established Patient botox Specialty Diagnoses / Procedures Referred By Contac t Referred To Contact ADULT NEUROLOGY Diagnoses Chronic migraine without aura, intractable, without status migrainosus Procedures BOTULINUM TOXIN A PER 1 UNIT CHEMODERVATE FACIAL/TRIGEM/[place] [address] [id number] [place] [address] [place] [address] Referral ID Status Reason Start Date Expiration Date V isits Requested Visits Authorized [id number] Authorized 03/13/2024 03/13/2025 4 4 Reason Comments Epilepsy Reason Comments Cardiology Follow Up Specialty Diagnoses / Procedures Referred By Contac t Referred To Contact ADULT NEUROLOGY Diagnoses Chronic migraine without aura, intractable, without status migrainosus Procedures BOTULINUM TOXIN A PER 1 UNIT CHEMODERVATE FACIAL/TRIGEM/[place] [address] [id number] [place] [address] [place] [address] Reason Comments Large abdominal hematoma Reason Comments [...] Alejandro Villar MD, PhD [address] [place] [address] Phone: tel: fax: Outpatient Referral [address] [address] Referral ID Status Reason Start Date Expiration Date V isits Requested Visits Authorized [id number] Closed PCP Requested Referral 05/07/2025 11/14/2025 1 1 Source Comments (unrecognize d section and content) In the event this informatio n is protected by the Federal Confidentiality of Alcohol and Drug Abuse Patient Records regulations: The Federal rules restrict any use of the information to criminally investigate or prosecute any alcohol or drug abuse patient.[facility] the event this information is protected by the Federal Confidentiality of Alcohol and Drug Abuse Patient Records regulations: The Federal rules restrict any use of the information to criminally investigate or prosecute any alcohol or drug abuse patient.[facility] the event this information is protected by the Federal Confidentiality of Alcohol and Drug Abuse Patient Records regulations: The Federal rules restrict any use of the information to criminally investigate or prosecute any alcohol or drug abuse patient.[facility] the event this information is protected by the Federal Confidentiality of Alcohol and Drug Abuse Patient Records regulations: The Federal rules restrict any use of the information to criminally investigate or prosecute any alcohol or drug abuse patient.[facility] the event this information is protected by the Federal Confidentiality of Alcohol and Drug Abuse Patient Records regulations: The Federal rules restrict any use of the information to criminally investigate or prosecute any alcohol or drug abuse patient.[facility] the event this information is protected by the Federal Confidentiality of Alcohol and Drug Abuse Patient Records regulations: The Federal rules restrict any use of the information to criminally investigate or prosecute any alcohol or drug abuse patient.[facility] Hospital[facility] the event this information is protected by the Federal Confidentiality of Alcohol and Drug Abuse Patient Records regulations: The Federal rules restrict any use of the information to criminally investigate or prosecute any alcohol or drug abuse patient.[facility] Hospital[facility] the event this information is protected by the Federal Confidentiality of Alcohol and Drug Abuse Patient Records regulations: The Federal rules restrict any use of the information to criminally investigate or prosecute any alcohol or drug abuse patient.[facility] the event this information is protected by the Federal Confidentiality of Alcohol and Drug Abuse Patient Records regulations: The Federal rules restrict any use of the information to criminally investigate or prosecute any alcohol or drug abuse patient.[facility] the event this information is protected by the Federal Confidentiality of Alcohol and Drug Abuse Patient Records regulations: The Federal rules restrict any use of the information to criminally investigate or prosecute any alcohol or drug abuse patient.[facility] Hospital[facility] the event this information is protected by the Federal Confidentiality of Alcohol and Drug Abuse Patient Records regulations: The Federal rules restrict any use of the information to criminally investigate or prosecute any alcohol or drug abuse patient.[facility] Hospital[facility] the event this information is protected by the Federal Confidentiality of Alcohol and Drug Abuse Patient Records regulations: The Federal rules restrict any use of the information to criminally investigate or prosecute any alcohol or drug abuse patient.[facility] HospitalIn the event this information is protected by the Federal Confidentiality of Alcohol and Drug Abuse Patient Records regulations: The Federal rules restrict any use of the information to criminally investigate or prosecute any alcohol or drug abuse patient.[facility] Hospital[facility] the event this information is protected by the Federal Confidentiality of Alcohol and Drug Abuse Patient Records regulations: The Federal rules restrict any use of the information to criminally investigate or prosecute any alcohol or drug abuse patient.[facility] Hospital[facility] the event this information is protected by the Federal Confidentiality of Alcohol and Drug Abuse Patient Records regulations: The Federal rules restrict any use of the information to criminally investigate or prosecute any alcohol or drug abuse patient.[facility] HospitalIn the event this information is protected by the Federal Confidentiality of Alcohol and Drug Abuse Patient Records regulations: The Federal rules restrict any use of the information to criminally investigate or prosecute any alcohol or drug abuse patient.[facility] HospitalIn the event this information is protected by the Federal Confidentiality of Alcohol and Drug Abuse Patient Records regulations: The Federal rules restrict any use of the information to criminally investigate or prosecute any alcohol or drug abuse patient.[facility] HospitalIn the event this information is protected by the Federal Confidentiality of Alcohol and Drug Abuse Patient Records regulations: The Federal rules restrict any use of the information to criminally investigate or prosecute any alcohol or drug abuse patient.[facility] HospitalIn the event this information is protected by the Federal Confidentiality of Alcohol and Drug Abuse Patient Records regulations: The Federal rules restrict any use of the information to criminally investigate or prosecute any alcohol or drug abuse patient.[facility] HospitalIn the event this information is protected by the Federal Confidentiality of Alcohol and Drug Abuse Patient Records regulations: The Federal rules restrict any use of the information to criminally investigate or prosecute any alcohol or drug abuse patient.[facility] HospitalIn the event this information is protected by the Federal Confidentiality of Alcohol and Drug Abuse Patient Records regulations: The Federal rules restrict any use of the information to criminally investigate or prosecute any alcohol or drug abuse patient.[facility] HospitalIn the event this information is protected by the Federal Confidentiality of Alcohol and Drug Abuse Patient Records regulations: The Federal rules restrict any use of the information to criminally investigate or prosecute any alcohol or drug abuse patient.[facility] HospitalIn the event this information is protected [...] prosecute any alcohol or drug abuse patient.[facility] Care Teams (unrecognized sec tion and [...] End: February 21, 2025 Josefina Adams APRN [employer]-C Attending Provider Act lauryn Start: February 21, [...] March 09, 2024 End: March 09, 2024 Cylinder Press Operator Apprentice Relationship Specialty Start Date End Date Lee Broderick [place], [address] [place] [id number] PCP - General Internal Medicine 09/21/18 Kitty Valente MD [address] [place] [address] Primary Staff Physician Cardiology 01/31/19 Cylinder Press Operator Apprentice Relationship Specialty Start Date End Date Lee Broderick DO [place] [address] [place] [address] PCP - General Internal Medicine 09/21/18 Kitty Valente MD [address] [place] [address] Primary Staff Physician Cardiology 01/31/19 Cylinder Press Operator Apprentice Relationship Specialty Start Date End Date Broderick Howard, DO [address] [facility] [place] [address] PCP - General Internal Medicine 09/21/18 Kitty Valente MD [address] [place] [address] Primary Staff Physician Cardiology 01/31/19 Cylinder Press Operator Apprentice Relationship Specialty Start Date End Date Broderick Howard, DO [address] [facility] [place] [address] PCP - General Internal Medicine 09/21/18 Kitty Valente MD [address] [place] [address] Primary Staff Physician Cardiology 01/31/19 Cylinder Press Operator Apprentice Relationship Specialty Start Date End Date Broderick Howard, DO [address] [place] [facility] [place] [address] PCP - General Internal Medicine 09/21/18 Kitty Valente MD [address] [place] [address] Primary Staff Physician Cardiology 01/31/19 Team Status: Inactive Member Role Status Dates Broderick Howard DO Primary Care Provider, Attending Pr ovider Active Cylinder Press Operator Apprentice Relationship Specialty Start Date End Date Broderick Howard DO [address] [place] [facility] [place] [address] PCP - General Internal Medicine 09/21/18 Kitty Valente MD [address] [place] [address] Primary Staff Physician Cardiology 01/31/19 Team Status: Inactive Member Role Status Dates Broderick Howard DO Primary Care Provider Active Niki Weeks MD Attending Provider Active Cylinder Press Operator Apprentice Relationship Specialty Start Date End Date Broderick Howard DO [address] [facility] [place] [address] PCP - General Internal Medicine 09/21/18 Kitty Valente MD [address] [place] [address] Primary Staff Physician Cardiology 01/31/19 Cylinder Press Operator Apprentice Relationship Specialty Start Date End Date Broderick Howard DO [address] [place] [address] PCP - General Internal Medicine 09/21/18 Kitty Valente MD [address] [place] [address] Primary Staff Physician Cardiology 01/31/19 Cylinder Press Operator Apprentice Relationship Specialty Start Date End Date Broderick Howard DO [address] [place] [id number] PCP - General Internal Medicine 09/21/18 Kitty Valente MD [address] [place] [address] Primary Staff Physician Cardiology 01/31/19 Cylinder Press Operator Apprentice Relationship Specialty Start Date End Date Broderick Howard DO [address] [place] [id number] PCP - General Internal Medicine 09/21/18 Kitty Valente MD [address] [place] [address] Primary Staff Physician Cardiology 01/31/19 Cylinder Press Operator Apprentice Relationship Specialty Start Date End Date Broderick Howard DO [address] [place] [address] PCP - General Internal Medicine 09/21/18 Kitty Valente MD [address] [place] [address] Primary Staff Physician Cardiology 01/31/19 Team Status: Inactive Member Role Status Dates Broderick Howard DO Attending Provider Active Sta rt: November 24, 2023 End: November 24, 2023 Team Status: Inactive Member Role Status Dates Broderick Howard DO Primary Care Provide r, Attending Provider Active Start: February 09, 2024 End: February 09, 2024 Cylinder Press Operator Apprentice Relationship Specialty Start Date End Date Broderick Howard DO [address] [place] [address] PCP - General Internal Medicine 09/21/18 Kitty Valente MD [address] [place] [address] Primary Staff Physician Cardiology 01/31/19 Team Status: Active Member Role Status Dates Broderick Howard DO Primary Care Provide r, Attending Provider Active Start: February 10, 2024 Team Status: Active Member Role Status Dates Broderick Howard DO Primary Care Provider Active Start: February 15, 2024 HERSON Golden Attending Provider Active St art: February 15, 2024 Cylinder Press Operator Apprentice Relationship Specialty Start Date End Date Broderick Howard DO [address] [place] [id number] PCP - General Internal Medicine 09/21/18 Kitty Valente MD [address] [place] [address] Primary Staff Physician Cardiology 01/31/19 Cylinder Press Operator Apprentice Relationship Specialty Start Date End Date Broderick Howard DO [address] [place] [id number] PCP - General Internal Medicine 09/21/18 Kitty Valente MD [address] [place] [address] Primary Staff Physician Cardiology 01/31/19 Cylinder Press Operator Apprentice Relationship Specialty Start Date End Date Broderick Howard DO [address] [place] [address] PCP - General Internal Medicine 09/21/18 Kitty Valente MD [address] [place] [address] Primary Staff Physician Cardiology 01/31/19 Cylinder Press Operator Apprentice Relationship Specialty Start Date End Date Broderick Howard MD [address] [place] [facility] [place] [id number] PCP - General Internal Medicine 05/03/24 Cylinder Press Operator Apprentice Relationship Specialty Start Date End Date Broderick Howard MD [address] [place] [id number] PCP - General Internal Medicine 05/03/24 Cylinder Press Operator Apprentice Relationship Specialty Start Date End Date Broderick Howard DO [address] [place] [address] PCP - General Internal Medicine 09/21/18 Kitty Valente MD [address] [place] [address] Primary Staff Physician Cardiology 01/31/19 Cylinder Press Operator Apprentice Relationship Specialty Start Date End Date Broderick Howard DO [address] [place] [address] PCP - General Internal Medicine 09/21/18 Kitty Valente MD [address] [place] [address] Primary Staff Physician Cardiology 01/31/19 Cylinder Press Operator Apprentice Relationship Specialty Start Date End Date Broderick Howard DO [address] [place] [address] PCP - General Internal Medicine 09/21/18 Kitty Valente MD [address] [place] [address] Primary Staff Physician Cardiology 01/31/19 Team Status: Inactive Member Role Status Dates Broderick Howard DO Primary Care Provider Active Start: February 22, 2025 End: February 22, 2025 Katina Ordoñez MD Attending Provider Active Start : February 22, 2025 End: February 22, 2025 Cylinder Press Operator Apprentice Relationship Specialty Start Date End Date Broderick Howard DO [address] [place] [id number] PCP - General Internal Medicine 09/21/18 Kitty Valente MD [address] [place] [address] Primary Staff Physician Cardiology 01/31/19 Team Status: Inactive Member Role Status Dates Broderick Howard DO Primary Care Provider Active Start: July 02, 2025 End: July 02, 2025 Broderick Howard DO Attending Provider Active Sta rt: July 02, 2025 End: July 02, 2025 Cylinder Press Operator Apprentice Relationship Specialty Start Date End Date Broderick Howard DO [address] [place] [address] PCP - General Internal Medicine 09/21/18 Kitty Valente MD [address] [place] [address] Primary Staff Physician Cardiology 01/31/19 Team Status: [...] section and content) DATE CREATED AUTHOR 07/24/2022 [facility] DATE CREATED AUTHOR AUTHOR'S ORGANIZ ATION 04/23/2023 [facility] DATE CREATED AUTHOR AUTHOR'S ORGANIZ ATION 06/11/2023 [facility] DATE CREATED AUTHOR AUTHOR'S ORGANIZ ATION 06/10/2024 [facility] DATE CREATED AUTHOR AUTHOR'S ORGANIZ ATION 10/26/2024 [facility] DATE CREATED AUTHOR AUTHOR'S ORGANIZ ATION 10/28/2024 [facility] DATE CREATED AUTHOR AUTHOR'S ORGANIZ ATION 11/05/2024 [facility] DATE CREATED AUTHOR AUTHOR'S ORGANIZ ATION 11/06/2024 [facility] DATE CREATED AUTHOR AUTHOR'S ORGANIZ ATION 11/08/2024 [facility] DATE CREATED AUTHOR AUTHOR'S ORGANIZ ATION 12/15/2024 [facility] DATE CREATED AUTHOR AUTHOR'S ORGANIZ ATION 05/24/2025 [facility] DATE CREATED AUTHOR AUTHOR'S ORGANIZ ATION 05/31/2025 [facility] DATE CREATED AUTHOR AUTHOR'S ORGANIZ ATION 07/19/2025 [facility] DATE CREATED AUTHOR AUTHOR'S ORGANIZ ATION 08/05/2025 [facility] Goals (unrecognized section and [...] BASED ON THE PRIMARY CLINICAL RECORDS. [facility] [employer] provides no warranty or guarantee of the accuracy or completeness of information in this document.
--- NOTE | 2025-08-08 11:30 | PM.CN ---
Consult Note: HPI Data of Consult Patient: known to practice within the last 3 years Requesting Physician: Tiana Brush NP Primary Care Provider: Broderick Joiner, DO Consult Narrative Reason for consult: low back and right leg pain Narrative: Cassi Rodrigez a pleasant 75 year old female presents for evaluation of low back and right leg pain, status post lumbar laminectomy 08/[address] Weeks and laminectomy/fusion With Dr Bishop 11/07 with worsening right leg pain since per pt. pain today 05/24 increasing with standing, walking, pushing, pulling, bending, activity. recently underwent updated lumbar MRI with results in chart. pt was advised not to attempt PT post op by NS. pt denies falls or injury. has failed tylenol, gabapentin, lyrica, and flexeril. on coumadin and has CKD cannot take NSAIDs. Unfortunately Dr Weeks is no longer practicing and the pt/PCP have been unable to make contact with Dr Bishop cc:: CC: Tiana Brush NP [facility] Medical History (Updated 07/04/25 @ 14:57 by Tiana Brush NP) Low back pain ?M54.50 - Low back pain, unspecified (ICD-10) Osteoarthritis ?M19.90 - Unspecified osteoarthritis, unspecified site (ICD-10) Pancreatic cancer ?C25.9 - Malignant neoplasm of pancreas, unspecified (ICD-10) Seizure ?R56.9 - Unspecified convulsions (ICD-10) Acid reflux ?K21.9 - Gastro-esophageal reflux disease without esophagitis (ICD-10) Bradycardia ?R00.1 - Bradycardia, unspecified (ICD-10) Asthma ?J45.909 - Unspecified asthma, uncomplicated (ICD-10) Hypertension ?I10 - Essential (primary) hypertension (ICD-10) Surgical History S/P placement of cardiac pacemaker ?Z95.0 - Presence of cardiac pacemaker (ICD-10) 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) ?Z90.49 - Acquired absence of other specified parts of digestive tract (ICD-10) S/P brain surgery ?Z98.890 - Other specified postprocedural states (ICD-10) H/O lumbosacral spine surgery ?Z98.890 - Other specified postprocedural states (ICD-10) H/O cervical spine surgery ?Z98.890 - Other specified postprocedural states (ICD-10) Status post shoulder surgery ?Z98.890 - Other specified postprocedural states (ICD-10) Hx of cholecystectomy ?Z90.49 - Acquired absence of other specified parts of digestive tract (ICD-10) History of appendectomy ?Z90.49 - Acquired absence of other specified parts of digestive tract (ICD-10) Meds Home Medications and Allergies Home Medications ?Medication ?Instructions ?Recorded ?Confirmed ?Type carvedilol 12.5 mg tablet 12.5 mg PO BID 05/04/24 07/04/25 History levetiracetam 750 mg tablet 750 mg PO BID 05/04/24 07/04/25 History losartan 25 mg tablet 25 mg PO DAILY 05/04/24 07/04/25 History omeprazole 40 mg capsule,delayed 40 mg PO DAILY 05/04/24 07/04/25 History release ondansetron 4 mg disintegrating 4 mg PO DAILY PRN nausea and 05/04/24 07/04/25 History tablet vomiting venlafaxine 150 mg 150 mg PO DAILY 05/04/24 07/04/25 History capsule,extended release 24 hr warfarin 4 mg tablet 4 mg PO DAILY 05/04/24 07/04/25 History zonisamide 100 mg capsule 300 mg PO .qhs 05/04/24 07/04/25 History amitriptyline 50 mg tablet 50 mg PO DAILY 07/04/25 07/04/25 History amlodipine 5 mg tablet 5 mg PO DAILY 07/04/25 07/04/25 History doxycycline hyclate 100 mg capsule 100 mg PO Q12H 07/04/25 07/04/25 History ergocalciferol (vitamin D2) 1,250 1,250 mcg PO QWEEK 07/04/25 07/04/25 History mcg (50,000 unit) capsule ferrous sulfate 325 mg (65 mg 325 mg PO 07/04/25 History iron) tablet linaclotide 72 mcg capsule 72 mcg PO DAILY 07/04/25 07/04/25 History (Linzess) Allergies Allergy/AdvReac Type Severity Reaction Status Date / Time dexamethasone Allergy Unknown Rash Verified 06/05/24 09:51 pregabalin (From Lyrica) Allergy Unknown Rash Verified 06/05/24 09:51 Exam Constitutional Documenting provider has reviewed patient's vital signs: yes Common normals: no apparent distress, oriented x3, healthy appearing, alert and well nourished General appearance: cooperative HENMT Common normals: normocephalic, hearing grossly normal bilaterally and moist oral mucous membranes Head and scalp: normocephalic Eye Common normals: PERRL Pupil: PERRL Neck & C-Spine Common normals: full ROM General: normal visual inspection Chest Common normals: inspection of chest normal Respiratory Common normals: normal respiratory effort, no retractions and no use of accessory muscles Back & Pelvis Lumbar spine/lower back: ROM limited, pain with ROM, lumbar spinal tenderness, paraspinal muscle tenderness and straight leg raise positive right; straight leg raise negative left Other: right sij positive emmy(patricks), gaenslens, thigh thrust, compression test decreased sensation to right L4,5,S1 pattern strength 4/5 in RLE 5/5 in LLE Extremity Common normals: normal to inspection and full ROM Neuro Common normals: oriented x3 Sensorium/orientation: alert Gait (neuro): assistive device used cane Motor exam: no movement abnormalities noted and strength abnormal Psych Common normals: mental status grossly normal, thought process normal, cooperative, affect normal, speech normal and activity/motor behavior normal Speech: normal speech Thought process: normal thought process Results Additional Findings Additional findings: If on a controlled substance or opioids, I have checked an [place] report on this patient and there are no aberrancies noted in the prescribing history.??If on a controlled substance or opioid a drug screen was completed and reviewed within the last year, and if there has not been a drug screen completed we ordered one today to monitor higher risk, state monitored pain medication use. As part of providing excellent, safe, comprehensive care, the following was completed at our patient's visit: 1. A medication reconciliation and review to ensure accurate knowledge of current/active medications, including asking our patients to inform us about any [id number] medications or herbal remedies/nutritional supplements/alternative remedies. 2. A review to specifically ensure our patients have had annual screening for screening for depression, screening for tobacco use, and screening for unhealthy alcohol use. For concerning screenings had a discussion with the patient, provided patient education, and recommended follow-up with primary care provider when appropriate. If patient noted with a risk of falling, they received education on strength, gait, and balance training to prevent future risk of falling. Portions of this note may have been carried over from the previous visit and updated as appropriate. Please note this office utilizes paper charting in addition to the electronic medical record. A list of current medications, vitals, and PMH is available there as the clinical staff outside of myself do not have access to [facility] charting during the clinic day operations. As part of providing quality comprehensive care the current medications, vitals, and PMH were reviewed in the paper chart. Assessment and Plan Assessment and Plan (1) Post laminectomy syndrome: Assessment and Plan: The patient has had over 3 months of moderate to severe low back and right leg pain with functional impairment and inadequate response to conservative care including NSAIDS (unless there are contraindication such as concurrent blood thinners), multiple oral or topical pain medications The Oswestry Disability Index was completed, and the patient scored a 54%.? The patient noted the following:?? moderate to severe pain impacting ADLs, sitting, standing, sleeping, social life, travel (2) Failed back syndrome: (3) Lumbosacral radiculopathy: (4) Lumbar stenosis with neurogenic claudication: Plan 75 year old female with chronic low back pain worsening since prior lumbar surgery, is not able to attend PT as advised against by NS. lumbar MRI reviewed with pt. trial right L4-5 L5-S1 TFESI under fluoroscopy. update UDS today, restart tramadol 50mg BID PRN pain 14 tabs to last 7 days. pt to call office in 1 week to discuss response to medication/request refill. will need to re-establish with NS at [facility] for persistent right low back and RLE pain post lumbar laminectomy and fusion. consider scs trial, handout provided. f/u 2 weeks after JAY, consider SIJ injection
== END 2025-08-08 10:59 | disposition home or self-care (01) ==
LOC: PM 10:58
PROVIDERS: PCP Internal Medicine; Visit Provider Nurse Practitioner
DX: M96.1 Postlaminectomy syndrome, not elsewhere classified (principal); M54.16 Radiculopathy, lumbar region; M48.062 Spinal stenosis, lumbar region with neurogenic claudication
CPT/HCPCS: G0463

== ENCOUNTER 2025-08-15 01:43 | Outpatient (RCR) | payer MEDICARE, SELFPAY | END 2025-09-14 23:59 | disposition home or self-care (01) | LOC: MM 01:43 | PROVIDERS: PCP Internal Medicine; Visit Provider Internal Medicine | DX: Z51.81 Encounter for therapeutic drug level monitoring (principal); Z79.01 Long term (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 of anticoagulants | CPT/HCPCS: 85610; G0463 ==

== ENCOUNTER 2025-08-27 10:44 | Day surgery (SDC) | payer MEDICARE, SELFPAY ==
--- OUTSIDE RECORDS SUMMARY | 2025-08-15 06:07 | XMS_ITS | Continuity of Care Document ---
Author Organization [facility] Address [address] [place] [address] Phone Care Team Providers Care Car Stereo Installer Name Role Phone Broderick Joiner DO Primary Care Provider Broderick Joiner DO Attending Provider [phone] Tiana BrushC Other Provider Leandra Gama MD Attending Provider [phone] Tiana Brush Attending Provider [phone] Luc Ordoñez Attending Provider Care Teams Patient Care Team Team Status: [...] August 01, 2025 End: August 01, 2025 Visit Care Team Team Status: Active Member Role Status Dates Broderick Joiner DO Primary Care Provider Active Start: August 06, 2025 Katina Ordoñez MD Attending Provider Active Start : August 06, 2025 Patient Care Team Team Status: Inactive Member Role Status Dates Broderick Joiner DO Primary Care Provider Active Start: August 15, 2025 End: August 15, 2025 Katina Ordoñez MD Attending Provider Active Start : August 15, 2025 End: August 15, 2025 Chief Complaint and Reason for Visit Chief Complaint Admit Date Wellness July 02, 2025 2: 50pm Z95.0 July 23, 2025 8:48am M96.1 M48.062 M54.17 August 01 7:15am renal 6 month f/u August 15, 2025 9: 36am Reason for Visit Admit Date Age-related osteoporosis [...] for breast cancer Au kylie 2024 2:50pm Anemia of renal disease August 15 9:36am Bilateral lower extremity edema August 15, 2025 9:36am CKD (chronic kidney disease) stage 4, GF R 15-29 ml/min August 15, 2025 9:36am Hypertensive chronic kidney disease with stage 1 through stage 4 chronic ki August 15, 2025 9:36am Secondary hyperparathyroidism August 9:36am Allergies, Adverse Reactions, Alerts Allergen Type Severity Reaction Last Updated Verified Status dexamethasone Allergy Unknown Rash August 15, 2025 9:41am Y es Active pregabalin Allergy Unknown Rash August 15, 2025 9:41am Yes Active rifaximin Allergy Unknown rash August 15, 2025 9:41am Yes Active Social History Smoking Status Status Start Date End Date Date of Observa tion Never smoked tobacco (finding) August 15, 2025 9:49am Observation Status Observation Response Date of Response [...] 15-29 ml/min Unknown Active 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 Unknown Active Hypertensive chronic kidney disease [...] Every morning February 02, 2024 1:09pm Decem andre 2023 6:58p m Venlafaxine 150 mg capsule,ext ended release 24hr Discont inued 0 .ROUTE .COMPLEX 90 February 23, 2024 1:31pm Octob er 2023 7:38p m TAKE 1 CAPSULE BY MOUTH EVERY DAY Tramadol 50 mg tablet Discont inued 50 MG PO Twice daily as needed for pain 30 April 13, 2024 3:16pm Decem andre 2023 10:00 am Carvedilol 12.5 mg tablet Discont inued 0 .ROUTE .COMPLEX 180 May 24, 2024 6:47am Octob er 2023 9:21a m TAKE 1 TABLET BY MOUTH TWICE A DAY Ondansetron 4 mg tablet,disi ntegrating Discont inued 0 .ROUTE .COMPLEX 12 June 06, 2024 8:49am June 08, 2025 1:13p m DISSOLVE 1 TABLET IN MOUTH EVERY 6 HOURS NEEDED FOR NAUSEA Venlafaxine 150 mg capsule,ext ended release 24hr Discont inued 0 .ROUTE .COMPLEX 90 Octobe r 2023 7:38pm February 13, 2025 7:42a m TAKE 1 CAPSULE BY MOUTH EVERY DAY Losartan 25 mg tablet Discont inued 25 MG PO Every morning Decemb er 2023 6:58pm Decem andre 2023 3:47p m Losartan 25 mg tablet Active 25 MG PO Every morning 100 100 Decemb er 2023 3:46pm Complies with drug therapy Warfarin 4 mg tablet Active 0 .ROUTE .COMPLEX 2024 2:07pm TAKE 1 TABLET BY MOUTH EVERY DAY DIRECTED BY [facility] 90 Complies with drug therapy Doxycycline Hyclate 100 mg capsule Discont inued 100 MG PO Twice daily 20 2024 1:00am February 21, 2025 2:07p m Amlodipine 5 mg tablet Discont inued 0 .ROUTE .COMPLEX 90 February 13, 2025 7:42am February 22, 2025 10:43 am TAKE 1 TABLET BY MOUTH EVERY MORNING FOR HYPERTENSION Venlafaxine 150 mg capsule,ext ended release 24hr Discont inued 0 .ROUTE .COMPLEX February 13, 2025 7:42am February 22, 2025 10:43 am TAKE 1 CAPSULE BY MOUTH EVERY DAY Ferrous Sulfate 325 mg (65 mg iron) tablet Discont inued 0 .ROUTE .COMPLEX 45 February 27, 2025 8:41am Septe mber 2024 10:05 am TAKE 1 TABLET BY MOUTH EVERY 48 HOURS Carvedilol 12.5 mg tablet Discont inued 0 .ROUTE .COMPLEX 180 April 01, 2025 5:07pm Octob er 2024 9:48a m TAKE 1 TABLET BY MOUTH TWICE A DAY Ergocalcife rol (Vitamin D2) 1,250 mcg (50,000 unit) capsule Discont inued 0 .ROUTE .COMPLEX 14 April 02, 2025 9:33am Octob er 2024 9:48a m TAKE 1 CAPSULE BY MOUTH ONCE EVERY WEEK Ondansetron 4 mg tablet,disi ntegrating Active 0 .ROUTE .COMPLEX June 08, 2025 1:13pm DISSOLVE 1 TABLET IN MOUTH EVERY 6 HOURS NEEDED FOR NAUSEA Complies with drug therapy Venlafaxine 150 mg capsule,ext ended release 24hr Discont inued 0 .ROUTE .COMPLEX 90 2024 6:54am Octob er 2024 9:48a m TAKE 1 CAPSULE BY MOUTH EVERY DAY Ferrous Sulfate 325 mg (65 mg iron) tablet Active 0 .ROUTE .COMPLEX 45 2024 10:05a m TAKE 1 TABLET BY MOUTH EVERY 48 HOURS Complies with drug therapy Furosemide 20 mg tablet Discont inued 0 .ROUTE .COMPLEX 90 Octobe r 2024 8:59am Octob er 2024 9:48a m TAKE 1 TABLET BY MOUTH EVERY DAY Carvedilol 12.5 mg tablet Discont inued 12.5 [...] Discont inued 40 MG PO Every morning Jul 2022 11:46a m Octob er 2023 11:05 am Losartan 25 mg tablet Discont inued 25 MG PO Every morning [facility] 2022 12:00a m February 02, 2024 1:09p m Venlafaxine 150 mg capsule,ext ended release 24hr Discont inued 150 MG PO Every morning Jul 2022 12:00a m February 08, 2024 11:23 am Acetaminoph en (Tylenol Extra Strength) 500 mg Capsule Discont inued 1000 MG PO Q6H as needed for Pain Jul 2022 12:00a m February 08, 2024 11:20 am Enoxaparin (Lovenox) 100 mg/mL Syringe Discont inued 90 MG SUBCUT Daily [facility] 2022 12:00a m June 08, 2024 2:29p m Tizanidine 4 mg Tablet Discont inued 4 MG PO Twice daily as needed for Muscle Spasm 28 14 [facility] 2022 12:00a m February 08, 2024 11:24 am Hydrocodone -Acetaminop hen 5-325 mg Tablet Discont inued 1 TAB PO Q6H as needed for Pain Scale 1 - 5 56 14 [facility] 2022February 08, 2024 11:22 am Amitriptyli ne 10 mg tablet Discont inued 25 MG PO Daily at bedtime June 08, 2024 2:28pm Octob er 2023 9:18a m Linaclotide (Linzess) 72 mcg capsule Discont inued 72 MCG PO Daily 2024 1:00am February 22, 2025 10:43 am Linaclotide (Linzess) 72 mcg capsule Active 72 MCG PO Daily as needed February 22, 2025 10:43a m Complies with drug therapy Venlafaxine 75 mg capsule,ext ended release 24hr Discont inued 75 MG PO Daily Februa ry 2020 1:00am Septe [facility] 2022 11:47 am Omeprazole 40 mg capsule,del ayed release(DR/ EC) Discont inued 40 MG PO Daily Februa 2020 1:00am Febru harriett 2020 11:13 am Tramadol 50 mg tablet Discont inued 50 MG PO Daily Februa 2020 1:00am [facility] 2022 11:48 am Warfarin 4 mg tablet Discont inued 4 MG PO every Wednesday, and Wednesdayua 2020 1:00am 2024 2:07p m Zonisamide 100 mg capsule Discont inued 200 MG PO Daily ua 2020 1:00am February 09, 2024 3:12p m Amlodipine 10 mg tablet Discont inued 10 MG PO Daily ua 2020 1:00am [facility] 2022 11:41 am Naproxen Sodium (Aleve) 220 mg Tablet Discont inued 220 MG PO Twice daily as needed for Pain ua 2020 1:00am [facility] 2022 11:48 am Hydralazine 50 mg tablet Discont inued 50 MG PO As Directed ua 2020 1:00am [facility] 2022 11:41 am Levetiracet am 750 mg tablet Discont inued 750 MG PO Twice daily ua 2020 1:00am February 08, 2024 11:22 am Ondansetron 4 mg tablet,disi ntegrating Discont inued 4 MG PO Q8H as needed for Nausea ua 2020 1:00am June 06, 2024 8:49a m Melatonin 5 mg Tablet Discont inued 5 MG PO Bedtime as needed for Insomnia Februa 2020 1:00am [facility] 2022 11:48 am Omeprazole 40 mg capsule,del ayed release(DR/ EC) Discont inued 40 MG PO Twice daily 60 Februa 2020 1:00am [facility] 2022 11:46 am Zonisamide 100 mg capsule Active 200 MG PO Daily February 09, 2024 3:12pm Complies with drug therapy Amlodipine 5 mg tablet Discont inued 5 [...] 12 hours February 08, 2024 12:00a m Complies with drug therapy Venlafaxine 150 mg capsule,ext ended release 24hr [...] 2:58p m Amitriptyli ne 50 mg tablet Discont inued 50 MG PO Daily at bedtime Octobe r 2023 12:00a m Octob er 2024 9:46a m Take 1 tablet orally at bedtime. Linaclotide 72 mcg capsule Discont inued 72 MCG PO Daily 30 Octobe r 2023 11:04a m Octob er 2023 9:21a m Omeprazole 40 mg capsule,del ayed release(DR/ EC) Active 40 MG PO Every morning 30 30 Octobe r 2023 11:05a m Take 1 capsule orally 30 minutes before morning meal. Complies with drug therapy Tramadol 50 mg tablet Discont inued 50 MG PO Twice daily as needed for pain 30 March 29, 2024 12:00a m April 13, 2024 3:17p m Cyclobenzap rine 5 mg tablet Discont inued 5 MG PO Twice daily June 27, 2024 12:00a m Octob er 2023 10:53 am Cyclobenzap rine 5 mg tablet Discont inued 5 MG PO Twice daily as needed [facility] 2023 10:52a m Decem andre 2023 9:59a m Carvedilol 12.5 mg tablet Discont inued 12.5 MG PO Twice daily [facility] 2023 9:19am April 01, 2025 5:13p m Linaclotide 72 mcg capsule Discont inued 72 MCG PO Daily as needed [facility] 2023 9:21am Dece andre 2023 10:00 am Ferrous Sulfate 325 mg (65 mg iron) tablet Discont inued 325 MG PO Every 48 hours 45 [facility] 2023 12:00a m February 27, 2025 8:42a m Ergocalcife rol (Vitamin D2) 1,250 mcg (50,000 unit) capsule Discont inued 1250 MCG PO every week 14 [facility] 2023 12:00a m April 02, 2025 9:33a m Amlodipine 5 mg tablet Active 5 MG PO Daily February 22, 2025 10:42a m Complies with drug therapy Venlafaxine 150 mg capsule,ext ended release 24hr Discont inued 150 MG PO Daily February 22, 2025 10:43a m Septe mber 2024 6:54a m Furosemide (Lasix) 20 mg tablet Discont inued 20 MG PO Daily February 22, 2025 12:00a m Octob er 2024 8:59a m Cephalexin 500 mg capsule Discont inued 500 MG PO Three times daily 7 y 2024 1:00am Janua ry 2024 2:56p m Carvedilol 12.5 mg tablet Active 12.5 MG PO Twice daily Octobe r 2024 9:46am Complies with drug therapy Ergocalcife rol (Vitamin D2) 1,250 mcg (50,000 unit) capsule Active 04789 UNIT PO every week Octobe r 2024 9:47am Complies with drug therapy Furosemide 20 mg tablet Active 20 MG PO Every morning Octobe r 2024 9:47am Complies with drug therapy Venlafaxine 150 mg capsule,ext ended release 24hr Active 150 MG PO Every morning Octobe r 2024 9:48am Complies with drug therapy Immunizations Immunization Event Date Not Given Reason Dose Number Verification Specialist Lot Number Vaccine Information Statement (VIS) Detail Administration Location COVID-19 mRNA-1273 (Moderna) December 17, 2020 COVID-19 mRNA-1273 (Moderna) January 14, 2021 COVID-19 mRNA-1273 (Moderna) September 10, 2021 Fluzone TIV High-Dose 65YR+ August 29, 2024 [id number] [facility] influenza, unspecified formulation September 07, 2018 influenza, unspecified formulation August 23, 2019 influenza, unspecified formulation September 03, 2020 influenza, unspecified formulation July 30, 2021 influenza, unspecified formulation July 30, 2022 Pneumococcal Polysacc. Vaccine, 23 valent February 04, 2018 Procedures Procedure Date Performed Status MR lumbar spine wo con August 01, 2025 7:17 am completed MM screening mammo BI w/CAD July 02, 2025 3: 57pm completed Relevant Diagnostic Tests and/or Laboratory Data Laboratory Results Test Collection Date/Time Result Date/Time Result Interpretation Reference Range Result Comment Performing Site Urine Other Casts August 06, 2025 8:51am NONE SEEN #/LPF NONE SEEN Urine Random Creatini ne August 06, 2025 8:51am August 06, 2025 8:51am 130.50 mg/dL 20.00-300. 00 Magnesiu m Level August 06, 2025 9:01am August 06, 2025 9:01am 2.1 mg/dL 1.8-2.4 Uric Acid August 06, 2025 9:01am August 06, 2025 9:01am 5.1 mg/dL 2.6-6.0 Anion Gap August 06, 2025 9:01am August 06, 2025 9:01am 16.2 Iron Saturati on August 06, 2025 9:01am August 06, 2025 9:01am 30.2 % Parathyr oid Hormone (Intact) August 06, 2025 9:01am August 06, 2025 9:01am 222 pg/mL Abnormal (applies to non-numeric results) 15- Performed at: [address] [id number] Director: Junaid Sawyer PhD, Phone: [phone] 25-Imnaha xy Vitamin D Total August 06, 2025 9:01am August 06, 2025 9:01am 51.2 ng/mL <20 ng/mL Vit D -<30 ng/mL Vit D insufficien t30-100 ng/mL Vit D sufficient> 100 ng/mL Potential Toxicity Ferritin August 06, 2025 9:01am August 06, 2025 9:01am 74.0 ng/mL 8.0-252.0 Hematocr it August 06, 2025 9:01am August 06, 2025 9:01am 40.5 % 36.0-48.0 Urine Other Crystals August 06, 2025 8:51am None Seen #/HPF None Seen Urine Protein/ Creatini ne Ratio August 06, 2025 8:51am August 06, 2025 8:51am 0.17 Albumin August 06, 2025 9:01am August 06, 2025 9:01am 3.9 g/dL 3.4-5.0 Iron Level August 06, 2025 9:01am August 06, 2025 9:01am 84.0 ug/dL 50.0-170.0 Hemoglob in August 06, 2025 9:01am August 06, 2025 9:01am 12.9 g/dL 12.0-16.0 Urine Bacteria August 06, 2025 8:51am TRACE #/HPF Abnormal (applies to non-numeric results) NONE SEEN Urine Random Total Protein August 06, 2025 8:51am August 06, 2025 8:51am 22.3 mg/dL Above high normal <=11.9 BUN/Crea tinine Ratio August 06, 2025 9:01am August 06, 2025 9:01am 14.0 Total Iron Binding Capacity August 06, 2025 9:01am August 06, 2025 9:01am 278.0 ug/dL 250.0-450. 0 Mean Corpuscu lar Hemoglob in August 06, 2025 9:01am August 06, 2025 9:01am 32.3 pg 26.7-34.0 Urine Bilirubi n August 06, 2025 8:51am NEGATIVE NEGATIVE Blood Urea Nitrogen August 06, 2025 9:01am August 06, 2025 9:01am 25.0 mg/dL Above high normal 7.0-18.0 Mean Corpuscu lar Hemoglob in Concent August 06, 2025 9:01am August 06, 2025 9:01am 31.9 g/dL 29.9-35.2 Urine Occult Blood August 06, 2025 8:51am NEGATIVE NEGATIVE Calcium Level August 06, 2025 9:01am August 06, 2025 9:01am 8.5 mg/dL 8.5-10.1 Mean Corpuscu lar Volume August 06, 2025 9:01am August 06, 2025 9:01am 101.5 fL Above high normal 81.0-99.0 Urine Appearan ce August 06, 2025 8:51am CLEAR CLEAR Chloride Level August 06, 2025 9:01am August 06, 2025 9:01am 105 mmol/L 98-107 Mean Platelet Volume August 06, 2025 9:01am August 06, 2025 9:01am 9.6 fL 9.5-13.5 Urine Color August 06, 2025 8:51am YELLOW YELLOW Carbon Dioxide Level August 06, 2025 9:01am August 06, 2025 9:01am 23.9 mmol/L 21.0-32.0 Platelet Count August 06, 2025 9:01am August 06, 2025 9:01am 204 10 3/uL 150-450 Urine Glucose (UA) August 06, 2025 8:51am NEGATIVE mg/dL NEGATIVE Creatini ne August 06, 2025 9:01am August 06, 2025 9:01am 1.78 mg/dL Above high normal 0.55-1.02 Red Blood Count August 06, 2025 9:01am August 06, 2025 9:01am 3.99 10 6/uL Below low normal 4.20-5.40 Urine Ketones August 06, 2025 8:51am NEGATIVE mg/dL NEGATIVE Estimate d GFR ( ) August 06, 2025 9:01am August 06, 2025 9:01am 34 Below low normal >=60 mL/min/1.7 3m 2 Red Cell Distribu tion Width August 06, 2025 9:01am August 06, 2025 9:01am 12.5 % 11.0-15.0 Urine Leukocyt e Esterase August 06, 2025 8:51am NEGATIVE NEGATIVE Estimate d GFR (Non-Afr ican [place] August 06, 2025 9:01am August 06, 2025 9:01am 28 Below low normal >=60 mL/min/1.7 3m 2 Correcte d White Blood Count August 06, 2025 9:01am August 06, 2025 9:01am 4.7 10 3/uL 4.0-11.0 Urine Mucus August 06, 2025 8:51am NONE SEEN NONE SEEN Glucose Level August 06, 2025 9:01am August 06, 2025 9:01am 104 mg/dL 74-106 Urine Nitrite August 06, 2025 8:51am NEGATIVE NEGATIVE Potass[place] m Level August 06, 2025 9:01am August 06, 2025 9:01am 4.1 mmol/L 3.5-5.1 Urine pH August 06, 2025 8:51am 6.0 5.0-9.0 Sodium Level August 06, 2025 9:01am August 06, 2025 9:01am 141 mmol/L 136-145 Urine Protein August 06, 2025 8:51am NEGATIVE mg/dL NEG/TRACE Phosphor us Level August 06, 2025 9:01am August 06, 2025 9:01am 3.6 mg/dL 2.6-4.7 Urine RBC August 06, 2025 8:51am 0-2 #/HPF 0-2 Urine Specific [place] August 06, 2025 8:51am 1.025 1.005-1.02 5 Urine Squamous Epitheli al Cells August 06, 2025 8:51am RARE #/LPF NONE/RARE Urine Urobilin ogen August 06, 2025 8:51am 1.0 EU/dL 0.2-1.0 Urine WBC August 06, 2025 8:51am 0-2 #/HPF Abnormal (applies to non-numeric results) NONE SEEN Creatini ne August 01, 2025 7:28am August 01, 2025 8:05am 1.91 mg/dL Above high normal 0.60-1.20 [facility] [id number] [address] [place], [place] [id number] Estimate d GFR (CKD-EPI ) August 01, 2025 7:28am August 01, 2025 8:05am 27.025 mL/Min [facility] [id number] [address] [place], [place] [id number] Pharmacy Creatini ne Clearanc e (Chem August 01, 2025 7:28am August 01, 2025 8:05am 25.93 [facility] [id number] [address] [place], [place] [id number] Bedside Creatini ne August 01, 2025 7:36am August 01, 2025 7:38am 1.9 mg/dL Above high normal 0.6-1.3 ER/ESD physician is notified/sh own all ISTAT results.Cri tical values may be confirmed by laboratory testing ifdeemed necessary by ER attending doctor. [facility] [id number] [address] [place], [place] [id number] Bedside Estimate d GFR (eGFR) August 01, 2025 7:36am August 01, 2025 7:38am 27.197 [facility] [id number] [address] [place], [place] [id number] Diagnostic Imaging Reports Author Arnel Simon [facility] Authored August 01, 2025 3:08pm Report Dictated Date/Time Dictated By Status Radiology Report August 01, 2025 3:08pm Arnel Simon II MD completed [facility] Main [place] [id number] MRI Report Signed Patient: Cassi Rodrigez MR#: [id number] : 1950 Acct:[id number] Age/Sex: 75 / F ADM Date: 5 Loc: MR Room: Type: [facility] Attending Dr: Tiana CHAMBERS Copies to: REYES [...] There is moderate spinal canal stenosis with m oderate right and mild left neural foraminal stenosis [...] Simon M.D. 08/01/2025 3:20 PM Dictation Location: [place] [address] Transcribed By: [facility] 08/01/25 1520 Dictated By: Arnel Simon II, [...] Weight 86.18 kg August 01, 2025 7:23am Height 62 [in_i] August 15 9:41am Weight 83.23 kg August 15 9:41am Body Temperature 96.5 [degF] 97.6-99.0 August 9:41am Heart Rate 75 /min 60-100 August 15 9:41am Respiratory rate 18 /min 12-August 9:41am Oxygen saturation by Pulse oximetry 98 % 95-100 August 15, 2025 9: 41am BP Systolic 113 mm[Hg] 100-140 August 15 9:41am BP Diastolic 71 mm[Hg] 60-100 August 15 9:41am BMI (Body Mass Index) 33.5 kg/m2 Octobe r 2024 9:41am Advance Directives Advance Directive Response Recorded Date/ Time Advance Directives No July 10:19am Insurance Providers Guarantor Cassi Rodrigez Address [address] [place] [phone] Contact Info. Home Phone: Payer Policy Id Subscriber's Name Subscriber Id Effe ctive Date Expiration Date Cate ESTES [id number] Cassi Rodrigez [id number] Medicare [id number] Cassi Rodrigez [id number] [employer] [facility] [id number] Cassi Rodrigez [id number] [facility] Health Plans [facility] PFFS [id number] Cassi Rodrigez [id number] [facility] Health Claims [id number] Cassi Elia [id number] Encounters Encounter Location(s) Arrival/Admit Date Discharge/Depart Date Provider(s) Departed Physician/Prov ider Office Visit -[facility] July 02, 2025 2:50pm July 02, 2025 3:57pm Broderick Joiner DO Non-patient / Non-visit -[facility] July 23, 2025 8:48am Chris Gama Departed Clinical -[facility] August 01, 2025 7:15am August 01, 2025 7:16am REYES Maldonado Non-patient / Non-visit -[facility] August 06, 2025 8:51am Katina Ordoñez MD Departed Physician/Prov ider Office Visit -[facility] August 15, 2025 9:36am August 15, 2025 10:06am Katina Ordoñez MD Recent Diagnosis Onset Date Admit Date Age-related osteoporosis wit hout current pathological fracture Unknown July 02, 2025 2:50pm Chronic kidney disease Unknown July 022024 2:50pm Gastroesophageal reflux dise ase with esophagitis without hemorrhage Unknown July 02, 2025 2:50pm History of pancreatic cancer Unknown Jun ust 2024 2:50pm Hypertension Unknown July 02 2:50pm Lumbar stenosis with neurogenic claudication Unk nown July 02, 2025 2:50pm Major depression Unknown July 02 2:50pm Medicare annual wellness visit, subsequent Unkno wn July 02, 2025 2:50pm Screening mammogram for breast cancer Unknown July 02, 2025 2:50pm Anemia of renal disease Unknown August 15, 2025 9:36am Bilateral lower extremity edema Unknown August 15, 2025 9:36am CKD (chronic kidney disease) stage 4, GFR 15-29 ml/min Unknown August 15, 2025 9:36am Hypertensive chronic kidney disease with stage 1 through stage 4 chronic ki Unknown August 15, 2025 9:36am Secondary hyperparathyroidism Unknown Oc tober 2024 9:36am Assessments Diagnosis Onset Date Resolution Status Admit Date Age-related osteoporosis wit hout current pathological fracture acute [facility] 2024 2:50pm Chronic kidney disease acute [facility] 2024 2:50pm Gastroesophageal reflux dise ase with [...] [facility] cancer noneactive July 02 2:50pm Anemia of renal disease acute O ctober 2024 9:36am Bilateral lower extremity edema acut e August 15, 2025 9:36am CKD (chronic kidney disease) stage 4, GFR 15-29 ml/min acute Octobe r 2024 9:36am Hypertensive chronic kidney disease with stage 1 through stage 4 chronic ki acute August 15, 2025 9:36am Secondary hyperparathyroidism acute August 15, 2025 9:36am Plan of Treatment Author Broderick Joiner [facility] Authored July 02, 2025 3: [...] on monthly SBE and recommended yearly mammograms. Author Katina Ordoñez [facility] Authored August 15, 2025 10 :01am She has longstanding CKD due to the HTN and renovascular atherosclerotic disease. Her baseline creatinine serum creatinine is 1.6 to 1.9 mg/dL. I discussed with the importance of good HTN control to slow down the progression of CKD. I have advised her to avoid NSAIDs or herbal medications. She has a secondary hyperparathyroidism due to the vitamin D deficiency and CKD. Will continue oral vitamin D once weekly. Blood pressure is controlled she appears to be euvolemic. Will Continue current dose of the amlodipine, carvedilol and losartan. Advised her to monitor blood pressure at home and call office if stays above 140 over 90 mmHg. She has a bilateral lower extremity edema likely due to the CKD. I will prescribe oral Lasix once daily. Advised her to monitor weight at home and call office if she continues to gain weight. Will repeat renal function in 3 to 4 days. Hemoglobin is within the goal but has low iron stores. She had normal B12 and folate level. She had unremarkable workup for paraproteinemia. Will continue oral iron every other day. Future Tests Future scheduled test information is unavailable Pending Tests Test Name Ordered Date Scheduled Date Renal Function Panel August 15, 2025 10:02am 6 Months Future Visits Future appointment information is unavailable Referrals to Other Providers Referral information is unavailable Future Procedures Procedure Name Ordered Date Scheduled Date Disability Placard July 02, 2025 3:44pm Dipstick and Microscopic August 15, 2025 10:02 am 6 Months Hemogram CBC Without Diff August 15, 2025 10:0 2am 6 Months Iron and TIBC Profile August 15, 2025 10:03am 6 Months Ferritin August 15, 2025 10:03am 6 [place] [facility] Magnesium August 15, 2025 10:02am 6 [place] [facility] Protein Creat Ratio Ur Random August 15, 2025 10:02am 6 Months Parathyroid Hormone Intact August 15, 2025 10: 02am 6 Months Uric Acid August 15, 2025 10:02am 6 [place] [facility] Vitamin D 25 Hydroxy Total August 15, 2025 10: 02am 6 Months Future Medications Future medication information is unavailable Patient Instructions Patient instructions are unavailable
--- OUTSIDE RECORDS SUMMARY | 2025-08-27 10:46 | XMS_ITS | Encounter Summary ---
Author Organization [facility] Address [address] [place] [address] Phone Care Team Providers Care Retread Technician Name Role Phone Unavailable Primary Care Provider Unavailabl e Encounter Details Date Type Department Care Team (Late st Contact Info) Description 04/29/2023 Orders Only [facility] [address] [place] [address] Conversion, Onbase Social History Tobacco Use Types [...]
--- OUTSIDE RECORDS SUMMARY | 2025-08-27 10:46 | XMS_ITS | Clinical Summary ---
Author Organization [facility] Address [address] [place] [address] Care Team Providers Care Fellmongery Worker Name Role Phone Broderick Joiner Primary Care Provider [phone] Allergies Active Allergy Reactions Criticality Noted Date [...] 25 Active ergocalciferol (Vitamin D2) 1.25 MG (85162 UT) capsule TAKE 1 CAPSULE BY MOUTH [...] 11/29/2024 1:43 PM EST Plan of Treatment Not on file Insurance [employer] Care Teams Fellmongery Worker Relationship Specialty Start Date End Date Broderick Joiner DO PCP - General Internal Medicine 05/03/24
--- OUTSIDE RECORDS SUMMARY | 2025-08-27 10:47 | XMS_ITS | Clinical Summary ---
Author Organization [employer] [facility] [employer] Address [id number] [address] [place] [address] Care Team Providers Care Modular Set Crew Member Name Role Phone Shashi Lisa DO Primary [...] Medical Devices Not on file Insurance MEDICARE [facility] INSURANCE Care Teams Modular Set Crew Member Relationship Specialty Start Date End Date Shashi Lisa DO PCP - General 12/17/17
--- OUTSIDE RECORDS SUMMARY | 2025-08-27 10:47 | XMS_ITS | Encounter Summary ---
Author Organization [facility] Address [address] [place] [address] Care Team Providers Care Shirt Cleaner Name Role Phone Broderick Joiner DO Primary Care Provider [phone] Encounter Details Date Type Department Care Team (Late st Contact Info) Description 05/30/2024 External Result Encounter [facility] External Department Unsolicited Priyank Mcfadden, PA [address] [place] [address] Social History Tobacco Use Types [...] Rico John M.D.05/30/2024 10:27 AM Dictation Location: [facility]--12 Transcribed By: [facility] 05/30/24 1027 Dictated By: Rico John DO 05/30/24 1006 Signed By: <Electronically signed by Rico John DO in OV> 05/30/24 1027 Narrative 05/30/2024 10:29 AM EDT [facility] Main Export [address] [place] [address] MRI Report Signed Patient: Cassi Rodrigez MR#: [id number] 8 : 1950 Acct:[id number] Age/Sex: 74 / F ADM Date: 05/30/24 Loc: Room: Type: [facility] Attending Dr: Priyank Mcfadden PA-C Copies [...] con Procedure Note Radiology, Radiologist, - 05/30/2024 [facility] Main Export [address] [place] [address] MRI Report Signed Patient: Cassi RodrigezMR#: [id number] 8 : 1950Acct:[id number] Age/Sex: 74 / FADM Date: 05/30/24 Loc: MR Room:Type: [facility] Attending Dr: Priyank Mcfadden PA-C Copies [...] Rico John M.D.05/30/2024 10:27 AM Dictation Location: [facility] Transcribed By: [facility] 05/30/24 1027 Dictated By: Rico John DO 05/30/24 1006 Signed By: <Electronically signed by Rico John DO in [place]> 05/30/24 1027 us Priyank QUINONEZ IMG MRI PROCEDURES Final Resu lt documented in this encounter Visit Diagnoses Not on filedocumented in this encounter Care Teams Shirt Cleaner Relationship Specialty Start Date End Date Broderick Joiner DO PCP - General Internal Medicine 05/03/24 documented as of this encounter
--- OUTSIDE RECORDS SUMMARY | 2025-08-27 10:47 | XMS_ITS | Clinical Summary ---
Author Organization [facility] Address [address] [place] [address] Phone Care Team Providers Care Telecommunications Engineer Name Role Phone Unavailable Primary Care Provider [...] patient's age to complete this topic Insurance WHOOP WHOOP
[2025-08-27 10:52] VITALS: BP 139/73; PULSE 77; TEMP 36.3; O2SAT 99
--- OUTSIDE RECORDS SUMMARY | 2025-08-27 10:55 | XMS_ITS | CCD ---
Author Organization [facility] Care Team Providers Care Supervisor Mapping Name Role Phone Bertram Sanders Unavailable Broderick [...] Care Provider Lee, DO Broderick Attending Provider [phone] Kasey PAUL, Keith Barron Attending Unavailable [...] Care Provider Kristel Low APRN Emergency Provider KITTY VALENTE Attending Unava ilable BRODERICK HOWARD Primary Care Unavailable KITTY VALENTE Referring Unava ilable BRODERICK HOWARD Primary Care Unavailable ELIAN JONES Attending Unavailable ALEJANDRO VILLAR Referring Unavailable BRODERICK HOWARD Primary Care Unavailable Broderick Howard DO Primary Care Provider Broderick Howard DO Attending Provider TOMMIE, RANDA M Attending Unavailable REILLY, RANDA [...] BALL, BRODERICK E Primary Care Unavailable Trudi DRUM PULLER-C, Tiana E Other Provider [phone] Leandra Gama MD Attending Provider Trudi DRUM PULLER-C, Tiana Quinteros Attending Provider [phone] Kristel Low Attending Unavailable Ball, Broderick Primary Care Unavailable Kristel Low Admitting Unavailable Trudi, Tiana E Admitting Unavailable Trudi, Tiana E Attending Unavailable Ball, Broderick Primary Care Unavailable Trudi, Tiana E Admitting Unavailable Trudi, Tiana E Attending Unavailable Ball, Broderick Primary Care Unavailable Katina Ordoñez MD Attending Provider Allergies Allergy Classification Reported Allergen(s) Allergy Type Date of Onset Reaction(s) Facility (20 sources) Dexamethasone; Translations: [dexAMETHasone] Drug Allergy 10-03-20 15 Rash, Unknown [facility] (20 sources) pregabalin; Translations: [pregabalin] Drug Allergy 08-24-20 13 Rash [facility] (20 sources) rifAXIMin Drug Allergy 02-09-20 24 rash [facility] (1 source) Dexamethasone Drug Allergy [facility] Repository (6 sources) pregabalin; Translations: [Lyrica] Drug Allergy 11-15-19 08 [facility] Repository (20 sources) Dexamethasone Drug Allergy 02-08-20 24 Unknown, Unknown Reaction [facility] (8 sources) Allergies Reconciled Propensity to adverse reactions Unknown [facility] Other (8 sources) patient allergy list reviewed by nurse or physicia Propensity to adverse reactions 04-13-20 Comment:Done [facility] Other (3 sources) Pregabalin Allergy to substance 08-24-20 13 Rash, Unknown [facility] (3 sources) rifAXIMin Drug Allergy 04-21-20 24 Rash [facility] (1 source) Dexamethasone Drug Allergy 07-02-20 25 [facility] Repository (1 source) [...] for 7 day(s), 21 tab(s), Refill(s) 0, [facility]/pharmacy #[id number], 157, cm, 10/25/24 11:44:00 EST, Height/Length Dosing, 87.7, kg, 10/25/24 11:44:00 EST, Weight Dosing Start Date: 11/02/24 Stop Date: 11/09/24 Status: Ordered amLODIPine 5 mg oral tablet (20 sources) [...] twice daily Carvedilol 12.5 mg tablet Active 12.5 MG PO Twice daily August 15, 2025 9:46am Complies with drug therapy Start: 04-01-2025 End: 08-15-2025 take 1 tablet by mouth twice daily Carvedilol 12.5 mg tablet Discontinued 0 .ROUTE .COMPLEX 180 April 01, 2025 5:07pm August 15, 2025 9:48am TAKE 1 TABLET BY MOUTH TWICE A DAY Start: 09-07-2024 End: 04-01-2025 take 1 tablet [...] 2024 2:29pm ergocalciferol 1.25 mg oral capsule (20 sources) Provitamin D2 Compound Start: 08-15-2025 Ergocalciferol (Jacqueline min D2) 1,250 mcg (50,000 unit) capsule Active 41835 UNIT PO every week August 15, 2025 9:47am Complies with drug therapy Start: 04-02-2025 End: 08-15-2025 take 1 capsule by mouth every week Ergocalciferol (Vitamin D2) 1,250 mcg (50,000 unit) capsule Discontinued 0 .ROUTE .COMPLEX April 02, 2025 9:33am August 15, 2025 9:48am TAKE 1 CAPSULE BY MOUTH ONCE EVERY WEEK Start: 09-07-2024 End: 04-02-2025 take 1 capsule by mouth every week Ergocalciferol (Vitamin D2) 1,250 mcg (50,000 unit) capsule Discontinued 1250 MCG PO every week September 07, 2024 12:00am April 02, 2025 9:33am ferrous sulfate 325 mg oral tablet (20 sources) Start: 02-27-2025 End: 08-09-2025 Ferrous Sulfate 325 mg (65 m g iron) tablet Active 0 .ROUTE .COMPLEX August 09, 2025 10:05am TAKE 1 TABLET BY MOUTH EVERY 48 [...] 2025 8:42am furosemide 20 mg oral tablet (7 sources) Loop Diuretic Start: 08-15-2025 End: 08-15-2025 take 1 tablet by mouth once daily Furosemide 20 mg tablet Discontinued 0 .ROUTE .COMPLEX August 15, 2025 8:59am August 15, 2025 9:48am TAKE 1 TABLET BY MOUTH EVERY DAY Start: 02-22-2025 End: 08-15-2025 take 1 tablet by mouth once daily in the morning Furosemide 20 mg tablet Active 20 MG PO Every morning August 15, 2025 9:47am Complies with drug therapy levETIRAcetam 750 mg [...] Comment on above: Take 1 capsule by [facility] once daily. ondansetron 4 mg disintegrating [...] sources) Serotonin and Norepinephrine Reuptake Inhibitor Start: 08-15-2025 take 1 capsule by mouth once daily in the morning Venlafaxine 150 mg capsule,extended release 24hr Active 150 MG PO Every morning August 15, 2025 9:48am Complies with drug therapy Start: 08-09-2025 End: 08-15-2025 take 1 capsule by mouth once daily Venlafaxine 150 mg capsule,extended release 24hr Discontinued 0 .ROUTE .COMPLEX August 09, 2025 6:54am August 15, 2025 9:48am TAKE 1 CAPSULE BY MOUTH EVERY DAY Start: 02-22-2025 End: 08-09-2025 take 1 capsule by mouth once daily Venlafaxine 150 mg capsule,extended release 24hr Discontinued 150 MG PO Daily February 22, 2025 10:43am August 09, 2025 6:54am Start: 10-25-2024 take 150 mg by mouth once daily venlafaxine 150 mg, Oral, Daily, Refills(s) 0, Depression Start Date: 10/25/24 Status: Ordered Start: 08-20-2024 End: 02-22-2025 take 1 capsule by mouth once daily Venlafaxine 150 mg capsule,extended release 24hr Discontinued 0 .ROUTE .COMPLEX February 13, 2025 7:42am February 22, 2025 10:43am TAKE 1 CAPSULE BY MOUTH EVERY DAY Start: 08-20-2024 take 1 capsule by mo [facility] once daily Venlafaxine Active 0 .ROUTE [...] on above: Take 1 capsule by mo [facility] once daily. Vitamin D (1 source) Start: [...] Tab 2 mg = 0.5 tab(s), Oral, [facility] Start Date: 11/02/24 Status: Ordered Start: 07-20-2023 [...] mg by mouth one time a week. amitriptyline hydrochloride 50 mg oral tablet (20 sources) Tricyclic Antidepressant Start: 08-29-2024 End: 08-15-2025 take 1 tablet by mouth once daily at bedtime Amitriptyline 50 mg tablet Discontinued 50 MG PO Daily at bedtime August 29, 2024 12:00am August 15, 2025 9:46am Take 1 tablet orally at bedtime. Start: 06-08-2024 End: 09-07-2024 Amitriptyline 10 mg [...] 25 mg by mouth daily at bedtime. onabotulinumtoxina 100 unt injection (10 sources) Acetylcholine Release Inhibitor Start : 07-18 End: 07-18 inject 1 dose by intramuscular injection every [...] injection (BOTOX) cephalexin 500 mg oral capsule (16 sources) Cephalosporin Antibacterial Start: 11-17-2024 End: 11-24-2024 take 1 capsule by mouth three times daily Cephalexin 500 mg capsule Discontinued 500 MG PO Three times daily 04 06November 17, 2024 1:00am November 24, 2024 2:56pm Start: 08-12-2023 take 1 capsule by [facility] twice daily Keflex 500 MG 1 [...] 9:59am doxycycline monohydrate 100 mg oral capsule (20 sources) Tetracycline-c lass Drug Start: 02-21-2025 End: [...] tablet Discontinued 25 MG PO Every morning November 08, 2024 6:58pm November 12, 2024 [...] sources) H/O: high risk medication; Translations: [Other long-term (current) drug therapy] Episodic Other aftercare (20 sources) Long-term current use of anticoagulant; Translations: [intermodal customer service (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 of anticoagulants] Onset: 4 02-08-2024 Episodic Other aftercare (5 sources) Encounter for therapeutic drug level monitoring; Translations: [[facility] DRUG LEVL MONITORING] Onset: 3 Episodic Other aftercare (1 source) intermodal customer service (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 of anticoagulants; Translations: [RETIREMENT ASSISTANT CURRNT USE ANTICOAGULANTS] Onset: 3 Episodic Other aftercare (8 sources) Long-term current use of drug therapy; Translations: [Other long-term (current) drug therapy] Episodic Other aftercare (1 source) Drug therapy finding; Translations: [Other long-term (current) drug therapy] 02-08-2024 Episodic Other and [...] as traumatic] Episodic Other connective tissue disease (19 sources) Trochanteric bursitis; Translations: [Trochanteric bursitis, right hip] 04-21-2024 Episodic Other connective tissue disease (4 sources) Trochanteric bursitis, right hip; Translations: [Enthesopathy of hip region] 04-21-2024 Episodic Other connective tissue disease (13 sources) Swelling of right lower limb; Translations: [Other specified soft tissue disorders] 08-30-2024 Episodic Other connective tissue disease (5 sources) Other specified soft tissue disorders; Translations: [Swelling of limb] 08-30-2024 Episodic Other diseases of kidney and ureters (19 sources) Secondary hyperparathyroidism; Translations: [Secondary hyperparathyroidism of [...] conditions (not mental disorders or infectious disease) (14 sources) Encounter for screening mammogram for malignant [...] [Localized edema] 02-08-2024 Episodic Residual codes; unclassified (19 sources) History of operative procedure on lumbar spinal structure; Translations: [Other specified postprocedural states] 04-21-2024 Episodic Residual codes; unclassified (4 sources) Other specified postprocedural states; Translations: [Personal history of surgery to other organs] 04-21-2024 Episodic Residual codes; unclassified (1 source) Amnesia; Translations: [Other amnesia] 01-04-2025 Episodic Residual codes; unclassified (7 sources) Bilateral lower limb edema; Translations: [Localized [...] 05-14-2015 Episodic Other aftercare (1 source) Other ferry terminal agent (current) drug therapy; Translations: [OTH RETIREMENT ASSISTANT CURRENT DRUG THERAPY] Onset: 08-04-2022 Episodic Other [...] Test Name Value Interpretation Reference Range Facility Erythrocyte distribution wid th Auto (RBC) [Ratio]Ordered By: Katina Ordoñez on 08-06-2025 Erythrocyte distribution width (RBC) [Ratio] 12.5 % 11.0-15.0 [facility] Glomerular filtration rate ( GFR) estimation in non- AmericanOrdered By: Katina Ordoñez on 08-06-2025 GFR/1.73 sq M.predicted among non-blacks MDRD (S/P/Bld) [Vol rate/Area] 28 mL/min/{1.73_m2} Low >=60 mL/min/1.7 3m 2 [facility] Hematocrit Auto (Bld) [Volum e fraction]Ordered By: Katina Ordoñez on 08-06-2025 Hematocrit (Bld) [Volume fraction] 40.5 % 36.0-48.0 [facility] Hemoglobin [Mass/volume] in BloodOrdered By: Katina Ordoñez on 08-06-2025 Hemoglobin (Bld) [Mass/Vol] 12.9 g/dL 12.0-16.0 [facility] Iron binding capacity [Mass/ volume] in Serum or PlasmaOrdered By: Katina Ordoñez on 08-06-2025 Iron binding capacity [Mass/Vol] 278.0 ug/dL 250.0-450. 0 [facility] Iron saturation [Mass Fracti on] in Serum or PlasmaOrdered By: Katina Ordoñez on 08-06-2025 Iron saturation [Mass fraction] 30.2 % [facility] Laboratory - Chemistry and C hemistry - challengeOrdered By: Katina Ordoñez on 08-06-2025 Albumin [Mass/Vol] 3.9 g/dL 3.4-5.0 [facility] Calcium [Mass/Vol] 8.5 mg/dL 8.5-10.1 [facility] Chloride [Moles/Vol] 105 mmol/L 98-107 [facility] CO2 [Moles/Vol] 23.9 mmol/L 21.0-32.0 [facility] Creatinine [Mass/Vol] 1.78 mg/dL High 0.55-1.02 [facility] Ferritin [Mass/Vol] 74.0 ng/mL 8.0-252.0 [facility] GFR/1.73 sq M.predicted MDRD (S/P/Bld) [Vol rate/Area] 34 mL/min/{1.73_m2} Low >=60 mL/min/1.7 3m 2 [facility] Glucose [Mass/Vol] 104 mg/dL 74-106 [facility] Iron [Mass/Vol] 84.0 ug/dL 50.0-170.0 [facility] Magnesium [Mass/Vol] 2.1 mg/dL 1.8-2.4 [facility] Potassium [Moles/Vol] 4.1 mmol/L 3.5-5.1 [facility] Sodium [Moles/Vol] 141 mmol/L 136-145 [facility] Urate [Mass/Vol] 5.1 mg/dL 2.6-6.0 [facility] Urea nitrogen [Mass/Vol] 25.0 mg/dL High 7.0-18.0 [facility] Urea nitrogen/Creatinine [Mass ratio] 14.0 mg/mg [facility] Bilirubin Ql (U) Negative NEGATIVE [facility] Glucose (U) [Mass/Vol] Negative NEGATIVE [facility] Ketones Ql (U) Negative NEGATIVE [facility] pH (U) 6.0 [pH] 5.0-9.0 [facility] Specific gravity (U) [Rel density] 1.025 1.005-1.02 5 [facility] Urobilinogen Qn (U) 1.0 {Lin'U}/dL 0.2-1.0 [facility] Laboratory - Specimen inform ationOrdered By: Katina Ordoñez on 08-06-2025 Appearance (U) CLEAR CLEAR [facility] Color (U) YELLOW YELLOW [facility] Laboratory - UrinalysisOrder ed By: Katina Ordoñez on 08-06-2025 Leukocyte esterase Test strip Ql (U) Negative NEGATIVE [facility] Mucus Ql (Urine sed) NONE SEEN NONE SEEN [facility] Nitrite Ql (U) Negative NEGATIVE [facility] Protein (U) [Mass/Vol] 22.3 mg/dL High <=11.9 [facility] Protein Ql (U) Negative NEG/TRACE [facility] Leukocytes [#/volume] correc tanesha for nucleated erythrocytes in Blood by Automated counOrdered By: Katina Ordoñez on 08-06-2025 WBC corrected for nucl RBC Auto (Bld) [#/Vol] 4.7 10 3/uL 4.0-11.0 [facility] MCH Auto (RBC) [Entitic mass ]Ordered By: Katina Ordoñez on 08-06-2025 MCH (RBC) [Entitic mass] 32.3 pg 26.7-34.0 [facility] MCHC Auto (RBC) [Mass/Vol]Or dered By: Katina Ordoñez on 08-06-2025 MCHC (RBC) [Mass/Vol] 31.9 g/dL 29.9-35.2 [facility] MCV Auto (RBC) [Entitic vol] Ordered By: Katina Ordoñez on 08-06-2025 MCV (RBC) [Entitic vol] 101.5 fL High 81.0-99.[address] [facility] No Panel InformationOrdered By: Katina Ordoñez on 08-06-2025 25-Hydroxy Vitamin D Total 51.2 ng/mL [facility] Comment on above: <20 ng/mL Vit D defi cient20-<30 ng/mL Vit D huvpphekchkj58-538 ng/mL Vit D sufficient>100 ng/mL Potential Toxicity Parathyroid Hormone (Intact) 222 pg/mL Abnormal 15-65 [facility] Comment on above: Performed at: - [facility] [address] [id number] Director: Junaid Sawyer PhD, Phone: [phone] Phosphorus Level 3.6 mg/dL 2.6-4.7 [facility] Urine Bacteria TRACE #/HPF Abnormal NONE SEEN [facility] Urine Occult Blood Negative NEGATIVE [facility] Urine Other Casts NONE SEEN #/LPF NONE SEEN [facility] Urine Other Crystals None Seen #/HPF None Seen [facility] Urine Random Creatinine 130.50 mg/dL 20.0 0-300. 00 [facility] Urine RBC 0-2 #/HPF 0-2 [facility] Urine Squamous Epithelial Cells RARE #/LPF NONE/RARE [facility] Urine WBC 0-2 #/HPF Abnormal NONE SEEN [facility] Platelet mean volume Auto (B ld) [Entitic vol]Ordered By: Katina Ordoñez on 08-06-2025 Platelet mean volume (Bld) [Entitic vol] 9.6 fL 9.5-13.5 [facility] Platelets Auto (Bld) [#/Vol] Ordered By: Katina Ordoñez on 08-06-2025 Platelets (Bld) [#/Vol] 204 10 3/uL 150-450 [facility] RBC Auto (Bld) [#/Vol]Ordere d By: Katina Ordoñez on 08-06-2025 RBC (Bld) [#/Vol] 3.99 10 6/uL Low 4.20-5.40 [facility] Serum or plasma anion gap de terminationOrdered By: Katina Ordoñez on 08-06-2025 Anion gap [Moles/Vol] 16.2 mmol/L [facility] Urine protein/creatinine rat ioOrdered By: Katina Ordoñez on 08-06-2025 Protein/Creatinine (U) [Ratio] 0.17 [facility] Creatinineon 08-01-2025 Creatinine Clr Calc Pharmacy 25.93 Normal [facility] Comment on above: Order Comment: STAT FOR MRI Result Comment: PERF ORMED BY: [address] [place] [address] PATHOLOGIST HOSPICE DIRECTOR LISA LOMBARDO M.D. Performed By: #### C REAT ####[place] [id number] [facility] GFR/1.73 sq M.predicted MDRD (S/P/Bld) [Vol rate/Area] 27.025 mL/min/{1.73_m2} Normal [facility] Comment on above: Order Comment: STAT FOR MRI Performed By: #### C REAT ####[place] [id number] [facility] Creatinine [Mass/volume] in Serum or PlasmaOrdered By: Tiana Brush on 08-01-2025 Creatinine [Mass/Vol] 1.91 mg/dL High 0.60-1.20 [facility] Comment on above: Order Comment: STAT FOR MRI Performed By: #### C REAT ####[place] [id number] [facility] Glomerular filtration rate [ Volume Rate/Area] in Serum, Plasma or Blood by CreatinineOrdered By: Tiana Brush on 08-01-2025 Glomerular filtration rate [Volume Rate/Area] in Serum, Plasma or Blood by Creatinine 27.025 mL/Min [facility] ISTAT XRay CREon 08-01-2025 ISTAT GFR 27.197 Normal [facility] Comment on above: Result Comment: PERF ORMED BY: [facility] [address] [place] [id number] PATHOLOGIST HOSPICE DIRECTOR LISA LOMBARDO M.D. Performed By: #### I SCRE ####[place] [id number] [facility] MR lumbar spine wo conon MR lumbar spine wo con [facility] Main [place] [address] [place] [id number] MRI Report Signed Patient: Cassi Rodrigez MR#: [id number] : 1950 Acct:[id number] Age/Sex: 75 / F ADM Date: 08/01/25 Loc: MR Room: Type: [facility] Attending Dr: Tiana CHAMBERS Copies to: REYES [...] Simon M.D. 08/01/2025 3:20 PM Dictation Location: [place] [address] Transcribed By: [facility] 08/01/25 1520 Dictated By: Arnel Simon II, MD 08/01/25 1508 Signed By: 08/01/25 1520 Normal [facility] Magnetic resonance imaging r eportOrdered By: Arnel Simon on 08-01-2025 Study report [facility] [place] [address] MRI Report Signed Patient: Cassi Rodrigez MR#: [id number] : 1950 Acct:[id number] Age/Sex: 75 / F ADM Date: 5 Loc: MR Room: Type: [facility] Attending Dr: Tiana CHAMBERS Copies to: REYES [...] Simon M.D. 08/01/2025 3:20 PM Dictation Location: [employer] Transcribed By: TONO 08/01/25 1520 Dictated By: Arnel Simon II, MD 08/01/25 1508 Signed By: 08/01/25 1520 [facility] Work Phone: No Panel InformationOrdered By: Tiana Brush on 08-01-2025 Bedside Estimated GFR (eGFR) 27.197 [facility] Creatinine Clearance (Chem 25.93 [facility] Whole blood creatinine measu rementOrdered By: Tiana Brush on 08-01-2025 Creatinine [Mass/Vol] 1.9 mg/dL High 0.6-1.3 [facility] Comment on above: ER/ESD physician is notified/shown all ISTAT results.Critical values may be confirmed by laboratory testing ifdeemed necessary by ER attending doctor. Result Comment: ER/E SD physician is notified/shown all ISTAT results. Critical values may be confirmed by laboratory testing if deemed necessary by ER attending doctor. Performed By: #### I SCRE ####[facility] [address] [place] [address] [facility] CNOVon 07-18-2025 CNOV Office Visit ([facility] ) -- CASSI RODRIGEZ ([id number]) 1950 F Date Time Provider Department 07/18/25 10:00 AM RANDA REILLY [facility] During your visit [...] Blanc RN Botox, 2 vials: Lot # [id number] Exp 09/2027 Lot # [id number] Exp 09/[address] Reilly [...] Injection Sites Muscle Fixed Site/Fixed Dose Bilat House Wrecker 20 U divided in 2 sites Procerus [...] wasted: 0 Randa Reilly MD [facility] Randa Reilly MD 07/18/2025 12:52 PM Signed PROGRESS NOTE- [facility] SERVICE DATE: July 18, 2025 Location: [facility] Participants: patient, and provider HPI: [...] with me or WENDY Randa Reilly MD [facility] Referring Provider: RANDA REILLY [[id number]] Allergies As of Date: 07/18/2025 Noted Allergy Reaction LYRICA (PREGABALIN) 08/24/2013 2 - Rash DEXAMETHASONE 10/03/2015 2 - Rash Date Reviewed: 07/18/2025 Reviewed by: Nola Naranjo MA - Fully Assessed Reason for (more content not included)... Normal [facility] CNOVon 05-21-2025 CNOV Office Visit ([facility] ) -- CASSI RODRIGEZ ([id number]) 1950 F Date Time Provider Department 05/21/25 8:00 AM ELIAN JONES During your visit today, we recorded the following information about you: Blood pressure Weight 123/60 87.3 kg Elian Jones DO 05/23/2025 2:36 PM Signed [facility] New Patient Evaluation Cassi Rodrigez : 1950 05/21/2025 8:00 AM Chief Complaint: memory concern I had the pleasure of seeing this 75 year old year old female at the [place] for [facility]. The patient is referred by Dr. Alejandro [...] She was advised to follow up at [facility] for further evaluation of her memory concerns. [...] Injuries, Ac (more content not included)... Normal [facility] CNOVon 04-10-2025 CNOV Office Visit ([facility] ) -- CASSI RODRIGEZ ([id number]) 1950 F Date Time Provider Department 04/10/25 11:30 AM RANDA REILLYFV During your visit today, we recorded the following information about you: Pulse Blood pressure Weight Height 86/minute 109/72 85.6 kg 1.575 m Randa Reilly MD 04/10/2025 12:19 PM Signed PROGRESS NOTE- [facility] SERVICE DATE: April 10, 2025 Location: [facility] Participants: patient, and provider HPI: [...] with me or WENDY Randa Reilly MD [facility] Lon Alexander RN 04/10/2025 12:19 PM Signed Patient name and confirmed. Patient states she would like to receive Botox treatment today. 2 vials of Botox A (100 units in each) reconstituted with 2.2 cc of normal saline in each vial. Botox drawn up into four, 1 cc syringes. Each syringe containing 50 units of Botox. Assisted by: Vania Adamsox, 2 vials: Lot # [id number] Exp 08/2027 Lot # [id number] Exp 08/[address] Reilly [...] Injection Sites Muscle Fixed Site/Fixed Dose Bilat House Wrecker 20 U divided in 2 sites Procerus [...] Total Units wasted: 0 Randa Reilly MD [facility] Referring Provider: RANDA REILLY [[id number]] Allergies As of Date: 04/10/2025 Noted Allergy [...] bedtime. - (more content not included)... Normal [facility] Erythrocyte distribution wid th Auto (RBC) [...] 02-12-2025 Albumin [Mass/Vol] 3.3 g/dL Low 3.4-5.0 [facility] Calcium [Mass/Vol] 8.6 mg/dL 8.5-10.1 [facility] Chloride [Moles/Vol] 107 mmol/L 98-107 [facility] CO2 [Moles/Vol] 21.1 mmol/L 21.0-32.0 [facility] Creatinine [Mass/Vol] 1.94 mg/dL High 0.55-1.02 [facility] Ferritin [Mass/Vol] 62.0 ng/mL 8.0-252.0 [facility] GFR/1.73 sq M.predicted MDRD (S/P/Bld) [Vol rate/Area] 31 mL/min/{1.73_m2} Low >=60 mL/min/1.7 3m 2 [facility] Glucose [Mass/Vol] 117 mg/dL High 74-106 [facility] Iron [Mass/Vol] 75.0 ug/dL 50.0-170.0 [facility] Magnesium [Mass/Vol] 2.0 mg/dL 1.8-2.4 [facility] Potassium [Moles/Vol] 4.6 mmol/L 3.5-5.1 [facility] Sodium [Moles/Vol] 141 mmol/L 136-145 [facility] Urate [Mass/Vol] 5.0 mg/dL 2.6-6.0 [facility] Urea nitrogen [Mass/Vol] 27.0 mg/dL High 7.0-18.0 [facility] Urea nitrogen/Creatinine [Mass ratio] 13.9 mg/mg [facility] Laboratory - Urinalysison Protein (U) [Mass/Vol] 24.6 mg/dL High <=11.9 [facility] Leukocytes [#/volume] correc tanesha for nucleated [...] Vit D defi cient20-<30 ng/mL Vit D -848 ng/mL Vit D sufficient>100 ng/mL Potential Toxicity Parathyroid Hormone (Intact) 141 pg/mL Abnormal 15-65 [facility] Comment on above: Performed at: - [facility] [address] [id number] Director: Junaid Sawyer PhD, Phone: [phone] Phosphorus Level 3.5 mg/dL 2.6-4.7 [facility] Urine Random Creatinine 127.82 mg/dL 20.0 [...] [facility] [place] CNOVon 01-05-2025 CNOV Office Visit (NEADFV ) -- CASSI RODRIGEZ ([id number]) 1950 F Date Time Provider Department 01/05/25 12:00 PM SVITLANA MAYFIELDADFV During your visit today, we recorded the following information about you: Pulse Blood pressure Weight Height 86/minute 127/61 86.7 kg 1.575 m Svitlana Mayfield APRN.CNP 01/05/2025 12:15 PM Signed Follow-Up Onabotulinum Toxin [...] 2/7 SCORES FANTA-2 Score 2 1 1 FATNA-7 Score 2 02/29/2024 Migraine Specific QOL - [...] for migraine Informed Consent Consent Obtained: Written [place] Protocol A moment to CARE was completed [...] applicable Written Consent Obtained: Written LOT #: [id number] Expiration Date: Month: Year: 2026 Second vial: LOT #: [id number] Expiration Date: Month: 4 Year: 2026 Injection Sites Left (Units) Left (Sites) Right (Units) Right (Sites) TOTAL (Units) House Wrecker 5 1 5 1 10 Procerus Units: [...] migraine pr (more content not included)... Normal [facility] CNOVon 01-04-2025 CNOV Office Visit (NEEPFV ) -- CASSI RODRIGEZ ([id number]) 1950 F Date Time Provider Department 01/04/25 2:00 PM ALEJANDRO VILLAR NEEPFV During your visit today, we recorded the following information about you: Pulse Blood pressure Weight Height 86/minute 127/61 87 kg 1.575 m Alejandro Villar MD, PhD 01/04/2025 2:17 PM Signed [facility] Patient Name: Cassi Rodrigez Date of : 1950 ESTABLISHED EPILEPSY CLINIC NOTE 01/04/2025 2:00 PM Reason for Visit: Follow Up Clinical Summary: Ms. Rodrigez is a 74 year old right-handed female seen in [facility]. 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 Normal [facility] Alanine aminotransferase [En zymatic activity/volume] in [...] on 11-24-2024 Appearance (U) Urine appearance [facility] Aspartate aminotransferase [ Enzymatic activity/volume] in [...] (Bld) NO GROWTH 5 DAYS PERFORMED BY: [place] [address] PATHOLOGIST HOSPICE DIRECTOR LEON MA M.D. Normal [facility] Comment on above: Performed By: #### C MP, PT, PTT, CUBLD, LACTIC, LIPASE, CBC ####[facility] [id number] Bacteria identified Cx Nom (Bld) NO GROWTH 5 DAYS PERFORMED BY: [place] [address] PATHOLOGIST HOSPICE DIRECTOR LEON MA M.D. Normal [facility] Comment on above: Performed By: #### C MP, PT, PTT, CUBLD, LACTIC, LIPASE, CBC #### [facility] [address] abdomen pelvis wo conon 0 11-24-2024 CT abdomen pelvis wo con [facility] Main [place] [address] [place] [address] CT Scan Report Signed Patient: Cassi Rodrigez MR#: [id number] 8 : 1950 Acct:[id number] Age/Sex: 74 / F ADM Date: 11/24/24 Loc: ER Room: Type: [facility] ER Attending Dr: Copies to: Kristel [...] Arnel Simon M.D.11/24/2024 3:48 PM Dictation Location: [place] [address] Transcribed By: TONO 11/24/24 1548 Dictated By: Arnel Simon II, MD 11/24/24 1538 Signed By: 11/24/24 1548 Normal [facility] Calcium [Mass/volume] in [...] Color of Urine by Auto Yellow Fi [facility] Complete Blood Count Auto Di ffon 11-24-2024 Basophils (Bld) [#/Vol] 0.0 10*3/uL Normal 0.0-0.2 [facility] Comment on above: Result Comment: PERF ORMED BY: [place] [address] PATHOLOGIST HOSPICE DIRECTOR LEON MA M.D. Performed By: #### C MP, PT, PTT, CUBLD, LACTIC, LIPASE, CBC #### [address] Basophils/100 WBC (Bld) 0.5 % Normal . T he [facility] Comment on above: Performed By: #### C MP, PT, PTT, CUBLD, LACTIC, LIPASE, CBC #### [address] Eosinophils (Bld) [#/Vol] 0.3 10*3/uL Normal 0.0-0.45 [facility] Comment on above: Performed By: #### C MP, PT, PTT, CUBLD, LACTIC, LIPASE, CBC #### [address] Eosinophils/100 WBC (Bld) 5.9 % Normal . [facility] Comment on above: Performed By: #### C MP, PT, PTT, CUBLD, LACTIC, LIPASE, CBC #### [address] Erythrocyte distribution width (RBC) [Ratio] 14.2 % Normal 11.9-15.3 [facility] Comment on above: Performed By: #### C MP, PT, PTT, CUBLD, LACTIC, LIPASE, CBC #### [address] Hematocrit (Bld) [Volume fraction] 28.7 % Low 34.0-46.4 [facility] Comment on above: Performed By: #### C MP, PT, PTT, CUBLD, LACTIC, LIPASE, CBC #### [address] Hemoglobin (Bld) [Mass/Vol] 9.7 g/dL Low 11.8-15.4 [facility] Comment on above: Performed By: #### C MP, PT, PTT, CUBLD, LACTIC, LIPASE, CBC #### [address] Lymphocytes (Bld) [#/Vol] 0.7 10*3/uL Low 1.00-4.8 [facility] Comment on above: Performed By: #### C MP, PT, PTT, CUBLD, LACTIC, LIPASE, CBC #### [address] Lymphocytes/100 WBC (Bld) 13.8 % Normal . [facility] Comment on above: Performed By: #### C MP, PT, PTT, CUBLD, LACTIC, LIPASE, CBC #### [address] MCH (RBC) [Entitic mass] 32.2 pg Normal 24.7-34.3 [facility] Comment on above: Performed By: #### C MP, PT, PTT, CUBLD, LACTIC, LIPASE, CBC #### [address] MCV (RBC) [Entitic vol] 95.4 fL Normal 80-100 [facility] Comment on above: Performed By: #### C MP, PT, PTT, CUBLD, LACTIC, LIPASE, CBC #### [address] Mean Corpuscular HGB Conc 33.8 g/dL Normal 32.0-35.0 [facility] Comment on above: Performed By: #### C MP, PT, PTT, CUBLD, LACTIC, LIPASE, CBC #### [address] Monocytes (Bld) [#/Vol] 0.4 10*3/uL Normal 0.0-0.8 [facility] Comment on above: Performed By: #### C MP, PT, PTT, CUBLD, LACTIC, LIPASE, CBC #### [address] Monocytes/100 WBC (Bld) 19.31 % Normal 0.00-20.00 [facility] Comment on above: Performed By: #### C MP, PT, PTT, CUBLD, LACTIC, LIPASE, CBC #### [address] Monocytes/100 WBC (Bld) 7.8 % Normal . T evette [facility] Comment on above: Performed By: #### C MP, PT, PTT, CUBLD, LACTIC, LIPASE, CBC #### [address] Neutrophils (Bld) [#/Vol] 3.7 10*3/uL Normal 1.8-7.7 [facility] Comment on above: Performed By: #### C MP, PT, PTT, CUBLD, LACTIC, LIPASE, CBC #### [address] Neutrophils/100 WBC (Bld) 72.0 % Normal . [facility] Comment on above: Performed By: #### C MP, PT, PTT, CUBLD, LACTIC, LIPASE, CBC #### [address] NRBC% 0.1 /100{WBC} Normal 0-0.5 [facility] Comment on above: Performed By: #### C MP, PT, PTT, CUBLD, LACTIC, LIPASE, CBC #### [address] Platelet mean volume (Bld) [Entitic vol] 7.2 fL Normal 6.3-10.7 [facility] Comment on above: Performed By: #### C MP, PT, PTT, CUBLD, LACTIC, LIPASE, CBC #### [address] Platelets (Bld) [#/Vol] 286 10*3/uL Normal 150-450 [facility] Comment on above: Performed By: #### C MP, PT, PTT, CUBLD, LACTIC, LIPASE, CBC #### [address] RBC (Bld) [#/Vol] 3.01 10*6/uL Low 3.60-5.00 [facility] Comment on above: Performed By: #### C MP, PT, PTT, CUBLD, LACTIC, LIPASE, CBC #### [address] WBC (Bld) [#/Vol] 5.1 10*3/uL Normal 3.8-11.6 [facility] Comment on above: Performed By: #### C MP, PT, PTT, CUBLD, LACTIC, LIPASE, CBC #### [address] Comprehensive Metabolic Pane daisha 11-24-2024 Albumin [Mass/Vol] 3.6 g/dL Normal 3.5-5.7 [facility] Comment on above: Performed By: #### C MP, PT, PTT, CUBLD, LACTIC, LIPASE, CBC #### [address] Albumin/Globulin [Mass ratio] 1.4 {ratio} Normal [facility] Comment on above: Performed By: #### C MP, PT, PTT, CUBLD, LACTIC, LIPASE, CBC #### [address] ALP [Catalytic activity/Vol] 174 U/L High 34-104 [facility] Comment on above: Performed By: #### C MP, PT, PTT, CUBLD, LACTIC, LIPASE, CBC #### [address] ALT [Catalytic activity/Vol] 8 U/L Normal 7-52 [facility] Comment on above: Performed By: #### C MP, PT, PTT, CUBLD, LACTIC, LIPASE, CBC #### [address] Anion gap [Moles/Vol] 9.7 mmol/L Normal 6.0-15.0 [facility] Comment on above: Performed By: #### C MP, PT, PTT, CUBLD, LACTIC, LIPASE, CBC #### [address] AST [Catalytic activity/Vol] 12 U/L Low 13-39 [facility] Comment on above: Performed By: #### C MP, PT, PTT, CUBLD, LACTIC, LIPASE, CBC #### [address] Bilirubin [Mass/Vol] 0.7 mg/dL Normal 0.3-1.0 [facility] Comment on above: Performed By: #### C MP, PT, PTT, CUBLD, LACTIC, LIPASE, CBC #### [address] Calcium [Mass/Vol] 8.5 mg/dL Low 8.6-10.3 [facility] Comment on above: Performed By: #### C MP, PT, PTT, CUBLD, LACTIC, LIPASE, CBC #### [address] Chloride [Moles/Vol] 111 mmol/L High 98-107 [facility] Comment on above: Performed By: #### C MP, PT, PTT, CUBLD, LACTIC, LIPASE, CBC #### [address] CO2 [Moles/Vol] 23.6 mmol/L Normal 21.0-31.0 [facility] Comment on above: Performed By: #### C MP, PT, PTT, CUBLD, LACTIC, LIPASE, CBC #### [address] Creatinine [Mass/Vol] 1.66 mg/dL High 0.60-1.20 [facility] Comment on above: Performed By: #### C MP, PT, PTT, CUBLD, LACTIC, LIPASE, CBC #### [address] Creatinine Clr Calc Pharmacy 30.82 Normal [facility] Comment on above: Performed By: #### C MP, PT, PTT, CUBLD, LACTIC, LIPASE, CBC #### [address] Estimated GFR 32.179 mL/Min Normal [facility] Comment on above: Performed By: #### C MP, PT, PTT, CUBLD, LACTIC, LIPASE, CBC #### [address] [place] [address] [place] Globulin (S) [Mass/Vol] 2.6 g/dL Normal T he [facility] Comment on above: Performed By: #### C MP, PT, PTT, CUBLD, LACTIC, LIPASE, CBC #### [address] Glucose [Mass/Vol] 99 mg/dL Normal 70-100 [facility] Comment on above: Result Comment: [facility] [place] Glucose Reference Range is dependent on time and content of last meal. Glucose of more than 200 mg/dL in a nonstressed, ambulatory subject supports the diagnosis of Diabetes Mellitus. ADA recommended reference range Performed By: #### C MP, PT, PTT, CUBLD, LACTIC, LIPASE, CBC #### [address] Potassium [Moles/Vol] 4.3 mmol/L Normal 3.5-5.1 [facility] Comment on above: Performed By: #### C MP, PT, PTT, CUBLD, LACTIC, LIPASE, CBC #### [address] Protein [Mass/Vol] 6.2 g/dL Low 6.4-8.9 [facility] Comment on above: Performed By: #### C MP, PT, PTT, CUBLD, LACTIC, LIPASE, CBC #### [address] Sodium [Moles/Vol] 140 mmol/L Normal 136-145 [facility] Comment on above: Performed By: #### C MP, PT, PTT, CUBLD, LACTIC, LIPASE, CBC #### [address] Urea nitrogen [Mass/Vol] 24 mg/dL Normal 7-25 [facility] Comment on above: Performed By: #### C MP, PT, PTT, CUBLD, LACTIC, LIPASE, CBC #### [address] Creatinine [Mass/volume] in Serum or PlasmaOrdered By: Kristel Low on 11-24-2024 Creatinine [Mass/Vol] Creatinine [Mass/v olume] in Serum or Plasma High 0.60-1.20 [facility] Dipstick and Microscopicon 0 11-24-2024 Appearance (U) Clear Normal Clear [facility] Comment on above: Order Comment: Name Collection Type:: Clean-Voided Midstream Performed By: #### A DDONUAPLUS #### [address] Bacteria,Urine None Seen Normal None Seen [facility] Comment on above: Order Comment: Name Collection Type:: Clean-Voided Midstream Performed By: #### A DDONUAPLUS #### [place] [address] [place] Bilirubin,Urine Negative Normal Negative [facility] Comment on above: Order Comment: Name Collection Type:: Clean-Voided Midstream Performed By: #### A DDONUAPLUS #### [place] [address] [place] Color (U) Light-Yellow Normal Yellow [facility] Comment on above: Order Comment: Name Collection Type:: Clean-Voided Midstream Performed By: #### A DDONUAPLUS #### [address] Glucose Ql (U) Normal Normal Normal [facility] Comment on above: Order Comment: Name Collection Type:: Clean-Voided Midstream Performed By: #### A DDONUAPLUS #### [place] [address] [place] Hyaline Casts,Urine 0 [LPF] Normal 0-8 [facility] Comment on above: Order Comment: Name Collection Type:: Clean-Voided Midstream Performed By: #### A DDONUAPLUS #### [place] [id number] [place] Ketones Ql (U) Negative Normal Negative [facility] Comment on above: Order Comment: Name Collection Type:: Clean-Voided Midstream Performed By: #### A DDONUAPLUS #### [place] [address] [place] Leukocyte esterase Test strip Ql (U) 1+ High Negative [facility] Comment on above: Order Comment: Name Collection Type:: Clean-Voided Midstream Performed By: #### A DDONUAPLUS #### [place] [address] [place] Mucus,Urine Rare Normal [facility] Comment on above: Order Comment: Name Collection Type:: Clean-Voided Midstream Result Comment: PERF ORMED BY: [place] [address] PATHOLOGIST HOSPICE DIRECTOR LEON MA M.D. Performed By: #### A DDONUAPLUS #### [address] Nitrite,Urine Negative Normal Negative [facility] Comment on above: Order Comment: Name Collection Type:: Clean-Voided Midstream Performed By: #### A DDONUAPLUS #### [place] [address] [place] Occult Blood,Urine Negative Normal Negative [facility] Comment on above: Order Comment: Name Collection Type:: Clean-Voided Midstream Result Comment: PERF ORMED BY: [place] [address] PATHOLOGIST HOSPICE DIRECTOR LEON MA M.D. Performed By: #### A DDONUAPLUS #### [place] [address] [place] pH (U) 5.5 [pH] Normal 5.0-9.0 [facility] Comment on above: Order Comment: Name Collection Type:: Clean-Voided Midstream Performed By: #### A DDONUAPLUS #### [place] [address] [place] Protein,Urine Negative Normal Negative [facility] Comment on above: Order Comment: Name Collection Type:: Clean-Voided Midstream Performed By: #### A DDONUAPLUS #### [place] [address] [place] RBC,Urine 1 [HPF] Normal 0-4 [facility] Comment on above: Order Comment: Name Collection Type:: Clean-Voided Midstream Performed By: #### A DDONUAPLUS #### [address] Specificy [place],Urine 1.020 Normal 1.00 1-1.03 0 [facility] Comment on above: Order Comment: Name Collection Type:: Clean-Voided Midstream Performed By: #### A DDONUAPLUS #### [address] Squamous Epithelial Cell,Urine 3 [HPF] High 0-2 [facility] Comment on above: Order Comment: Name Collection Type:: Clean-Voided Midstream Performed By: #### A DDONUAPLUS #### [address] Urobilinogen,Urine Normal Normal Normal [facility] Comment on above: Order Comment: Name Collection Type:: Clean-Voided Midstream Performed By: #### A DDONUAPLUS #### [address] WBC,Urine 1 [HPF] Normal 0-4 [facility] Comment on above: Order Comment: Name Collection Type:: Clean-Voided Midstream Performed By: #### A DDONUAPLUS #### [address] Eosinophils Auto (Bld) [#/Vo l]Ordered By: Kristel Low on 11-24-2024 Eosinophils (Bld) [#/Vol] Automated eosinophil count 0.0-0.45 [facility] Eosinophils/100 WBC Auto (Bl d)Ordered By: [...] Hemoglobin [Mass/volume] in BloodOrdered By: Kristel Low 11-24-2024 Hemoglobin (Bld) [Mass/Vol] Hemoglobin [Mass/volume] in Blood Low 11.8-15.4 [facility] Hyaline casts [#/area] in Ur ine sediment by Automated countOrdered By: Kristel Low on 01-10-2025 Hyaline casts Auto (Urine sed) [#/Area] Hyaline casts [#/area] in Urine sediment by Automated count 0-8 [facility] INR in Platelet [...] 0.8 mmol/L Normal 0.5-2.2 [facility] Comment on above: Result Comment: PERF ORMED BY: [facility] [address] [place] [address] PATHOLOGIST HOSPICE DIRECTOR LEON MA M.D. Performed By: #### C MP, PT, PTT, CUBLD, LACTIC, LIPASE, CBC #### [facility] [address] Leukocyte esterase [Presence ] in Urine [...] 10.0 U/L Low 11.0-82.0 [facility] Comment on above: Result Comment: PERF ORMED BY: [place] [address] PATHOLOGIST HOSPICE DIRECTOR LEON MA M.D. Performed By: #### C MP, PT, PTT, CUBLD, LACTIC, LIPASE, CBC #### [address] Lipase [Enzymatic activity/v olume] in Serum [...] s Normal 25.1-36.5 Th e [facility] Comment on above: Result Comment: A he matocrit value greater than 55% may lead to inaccurate results in coagulation testing. Patients having hematocrit values >55% require a special collection tube for coagulation studies. Please contact the laboratory at [phone] for redraw instructions. PERFORMED BY: [place] [address] PATHOLOGIST HOSPICE DIRECTOR LEON MA M.D. Performed By: #### C MP, PT, PTT, CUBLD, LACTIC, LIPASE, CBC #### [address] Platelet mean volume Auto (B ld) [...] time] 2.0 {INR} Normal [facility] Comment on [...] PT, PTT, CUBLD, LACTIC, LIPASE, CBC #### [facility] [address] [place] [id number] [facility] PT Coag (PPP) [Time] 22.8 s High 9.0-12.9 [facility] Comment on above: Result Comment: A he matocrit value greater than 55% may lead to inaccurate results in coagulation testing. Patients having hematocrit values >55% require a special collection tube for coagulation studies. Please contact the laboratory at [phone] for redraw instructions. Performed By: #### C MP, PT, PTT, CUBLD, LACTIC, LIPASE, CBC #### [facility] [address] [place] [id number] [facility] Prothrombin time (PT)Ordered By: Kristel Low on 11-24-2024 PT Coag (PPP) [Time] Prothrombin time (PT) High 9.0- 12.9 [facility] Comment on above: A hematocrit value g reater than 55% may lead to inaccurate results in coagulation testing. Patients having hematocrit values >55% require a special collection tube for coagulation studies. Please contact the laboratory at [phone] for redraw instructions. RBC Auto (Bld) [#/Vol]Ordere [...] or PlasmaOrdered By: Kristel Low on 11-24-2024 Urea nitrogen [Mass/Vol] Urea nitrogen [Mass/volume] [...] coagulation studies. Please contact the laboratory at [phone] for redraw instructions. pH Test strip (U)Ordered By: Kristel Low on 11-24-2024 pH (U) pH of Urine by Test strip 5.0-9.0 [facility] Ionized Calciumon 11-06-2024 Calcium.ionized ISE [Mass/Vol] 4.5 mg/dL Invalid Interpretation Code 4.5-5.6 [facility] Comment on above: Result Comment: Perf ormed at: [facility] [address] [id number] PhD Digna Quiroga Performed By: #### 2 [id number] #### [facility] [address] [place] [address] Main OR Intraoperative Recor don 11-06-2024 Main OR Intraoperative Record Main OR Intraoperative Record IntraOp Document Type FT Summary Primary Physician: Shashi De Souza MD Finalized Date/Time: 11/06/24 08:14:44 Pt. Name: ELIACASSI./Sex: 1950 Female Med Rec #: [id number] Physician: Shashi De Souza MD Financial #: [id number] Pt. Type: O Room/Bed: N303/01 Admit/Disch: 11/02/24 10:13:03 - 11/03/24 15:25:00 Institution: [...] De Souza MD, Renetta Topete Role Performed DEVELOPMENTAL BEHAVIORAL PHYSICIAN Surgeon - Primary Painting Supervisor - Primary Time In 11/02/24 14:07:00 11/02/24 [...] Katy Eastman Role Performed Scrub - Primary SPINDLE FRAME CARVER Spice Miller Time In 11/02/24 14:07:00 11/02/24 14:07:00 11/02/24 14:07:00 Time Out 11/02/24 15:48:00 11/02/24 15:48:00 11/02/24 15:48:00 Procedure LUMBAR LAMINECTOMY LUMBAR LAMINECTOMY LUMBAR LAMINECTOMY POSS. FUSION(.) POSS. FUSION(.) POSS. FUSION(.) Comments Last Modified By: Renetta Melendez Kelsie E Burgderfer, Kelsie E 11/02/24 15:51:39 11/02/24 15:51:39 11/02/24 15:51:39 Entry 7 Entry 8 Case Attendee Jin Presley Ii, Robert David Role Performed Staff - Other Anesthesiologist Architectural Intern Time In 11/02/24 14:07:00 11/02/24 14:53:00 Time [...] Yes sciati (more content not included)... Normal [facility] BMPon 11-03-2024 Anion gap [Moles/Vol] 8 mmol/L Normal 6-16 [facility] Comment on above: Performed By: #### 2 [id number] #### [facility] [address] [place] [address] Calcium [Mass/Vol] 8.0 mg/dL Low 8.9-11.1 [facility] Comment on above: Performed By: #### 2 [id number] #### [facility] [address] [place] [address] Chloride [Moles/Vol] 110 mmol/L Normal 101-111 [facility] Comment on above: Performed By: #### 2 [id number] #### [facility] [address] [place] [address] CO2 [Moles/Vol] 24 mmol/L Normal 21-31 [facility] Comment on above: Performed By: #### 2 [id number] #### [facility] [address] [place] [address] Creatinine [Mass/Vol] 1.6 mg/dL High 0.5-1.3 [facility] Comment on above: Performed By: #### 2 [id number] #### [facility] [address] [place] [address] Glucose [Mass/Vol] 106 mg/dL Normal 55-199 [facility] Comment on above: Performed By: #### 2 [id number] #### [facility] [address] [place] [address] Potassium [Moles/Vol] 4.1 mmol/L Normal 3.5-5.3 [facility] Comment on above: Performed By: #### 2 [id number] #### [facility] [address] [place] [address] Sodium [Moles/Vol] 138 mmol/L Normal 135-145 [facility] Comment on above: Performed By: #### 2 [id number] #### [facility] [address] [place] [address] Urea nitrogen [Mass/Vol] 20 mg/dL Normal 5-21 [facility] Comment on above: Performed By: #### 2 [id number] #### [facility] [address] [place] [address] Urea nitrogen/Creatinine [Mass ratio] 12 No Units Normal - [facility] Comment on above: Performed By: #### 2 [id number] #### [facility] [address] [place] [address] CBC w/Indiceson 11-03-2024 Erythrocyte distribution width (RBC) [Ratio] 14.4 % High 10.9-14.2 [facility] Comment on above: Performed By: #### 2 [id number] #### [facility] [address] [place] [address] Hematocrit (Bld) [Volume fraction] 35.4 % Normal 34.0-46.0 [facility] Comment on above: Performed By: #### 2 [id number] #### [facility] [address] [place] [address] Hemoglobin (Bld) [Mass/Vol] 11.9 g/dL Low 12.0-16.0 [facility] Comment on above: Performed By: #### 2 [id number] #### [facility] [address] [place] [address] MCH (RBC) [Entitic mass] 31.9 pg Normal 27.0-34.0 [facility] Comment on above: Performed By: #### 2 910696 #### [facility] [address] [place] [address] MCHC (RBC) [Mass/Vol] 33.7 g/dL Normal 31.4-36.0 [facility] Comment on above: Performed By: #### 2 [id number] #### [facility] [address] [place] [address] MCV (RBC) [Entitic vol] 94.5 fL Normal 80.0-100.0 [facility] Comment on above: Performed By: #### 2 624327 #### [facility] [address] [place] [address] Platelet mean volume (Bld) [Entitic vol] 7.4 fL Normal 6.4-10.8 [facility] Comment on above: Performed By: #### 2 808141 #### [facility] [address] [place] [address] Platelets (Bld) [#/Vol] 183.0 E9/L Normal 150. 0-500. 0 [facility] Comment on above: Performed By: #### 2 [id number] #### [facility] [address] [place] [address] RBC (Bld) [#/Vol] 3.7 E12/L Low 4.3-5.9 [facility] Comment on above: Performed By: #### 2 [id number] #### [facility] [address] [place] [address] RBC size Nom (Bld) NORMAL Invalid Interpretation Code [facility] Comment on above: Performed By: #### 2 [id number] #### [facility] [address] [place] [address] WBC corrected for nucl RBC Auto (Bld) [#/Vol] 5.4 E9/L Normal 4.0-11.0 [facility] Comment on above: Performed By: #### 2 057105 #### [facility] [address] [place] [address] CHEMISTRYOrdered By: SYSTEM SYSTEM on 11-03-2024 Anion [...] Chem Discharge Note-Nursingon Discharge Note-Nursing Discharge Note-Molly horaning CASSI RODRIGEZ :1950 Visit Date:11/02/2024 Inpatient Discharge [...] time unless symptoms worsen. Where: [address] [place] [address]- Business (1) Follow Up with Shashi De Souza When: Comments: f/u3wks ok shower and remove dressing [id number] no lift>5lbs keep incis dry clean. restart coumadin 3 days after surgery. 11-05-24Wednesday. Where: [address] [facility], [address] [place] [phone] Business (1) Medications What How Much When Why Instructions Next Dose New acetaminophen-oxycodone (Percocet 5 mg-325 mg oral tablet) 1 Tablets By Mouth 3 times a day as needed for Pain 4-7 Lumbar stenosis Duration: 7 Days Pickup at [facility]/pharmacy #[id number] as needed for pain Changed warfarin (warfarin [...] (at bedtime) 11/03 @ 9pm Pharmacy Information [facility]/pharmacy #[id number]: [address] [place], [place] [phone] Test Results CBC BMP WBC: 5.4 E9/L [...] Education Materials (more content not included)... Normal [facility] HEMATOLOGYOrdered By: SYSTEM SYSTEM on 11-03-2024 [...] Robb e Manageron 11-03-2024 Interdisciplinary Note - Patient Care Technician Interdisciplinary Note - Patient Care Technician CRM to room 303 Patient is awake, [...] contact, white board updated. CRM following Normal [facility] Comment on above: Result Comment: Elec tronically Signed By: Christal Chapman\.br\Date and Time Signed: 11/03/24 10:51 EST Interdisciplinary Note - Gila n 11-03-2024 Interdisciplinary Note - OT Interdisciplinary Note - OT Ot [facility] six clicks score = no further OT needs. Patient is modified Ind w/ LE self care after instruction, Sup with transfers w/ fww. Pt has spouse support at home and will be safe to return home when medically stable. Pt has all necessary bathroom dme already in place. Normal [facility] Magnesiumon 11-03-2024 Magnesium [Mass/Vol] 1.8 mg/dL Normal 1.3-2.4 [facility] Comment on above: Performed By: #### 2 [id number] #### [facility] [address] [place] [address] Phosphoruson 11-03-2024 Phosphate [Mass/Vol] 3.1 mg/dL Normal 1.9-4.6 [facility] Comment on above: Performed By: #### 2 689429 #### [facility] [address] [place] [address] XR Spine Single View Specify Levelon 11-03-2024 [...] Signed by: Broderick Sunshine MD Transcribed by: DP Technologist: CHANTALE Technical Comments Radiation Dose: Ka,r in mGy = 23.48 DAP = na Fluoro Time: 26 seconds Normal [facility] eGFRon 11-03-2024 eGFR 33 mL/min/1.73 m2 Low >=59 [facility] Comment on above: Performed By: #### 1 [id number] #### [facility] [address] [place] [address] ABO/Rhon 11-02-2024 ABO/Rh Positive Invalid Interpretation Code [facility] Comment on above: Performed By: #### 2 [id number] #### [facility] [address] [place] [address] ABO/Rh History Checkon 11-02 ABO/Rh History Check Verified Hx Blood Type Normal [facility] Comment on above: Performed By: #### 1 [id number] #### [facility] [address] [place] [address] ABSCon 11-02-2024 ABSC Gel Interp Negative Normal [facility] Comment on above: Performed By: #### 1 [id number] #### [facility] [address] [place] [address] BLOOD BANKOrdered By: Ericka Srinivasan on 11-02-2024 ABO/Rh Interp Positive Invalid Interpretation Code [facility] BB Subsection ABSC Gel Interp Negative (11/02/24 11:08 AM) Normal [facility] BB Subsection Blood Bank ID#on 11-02-2024 BBID# [id number] Invalid Interpretation Code [facility] Comment on above: Performed By: #### 1 [id number] #### [facility] [address] [place] [address] COAGULATIONOrdered By: Krish Srinivasan on 11-02-2024 aPTT Coag (PPP) [Time] 43.4 s High 25.1 - 36.5 second(s) [facility] Auto [facility] Comment on above: Interpretive Data: P simran 15 days - 4 weeks 1 - 5 months 6 - 11 months 1 - 5 years 6 - 10 years 11 - 17 years PTT Mean: 35.4 (27.6-45.6) Mean: 33.5 (24.8-40.7) Mean: 32.4 (25.1-40.7) Mean: 31.6 (24.0-39.2) Mean: 31.6 (26.9-38.7) Mean: 31.0 (24.6-38.4) Pediatric Reference ranges were obtained from a study by karyn Yuan prepared from 1437 samples obtained at 7 different centers using the same coagulation reagent and instrumentation as [facility]. Currently there are no coagulation studies available worldwide for children to 14 days, and no normal ranges. Heparin therapeutic range (represented by Anti-Factor Xa activity of 0.2 - 0.4 U/mL) corresponds to PTT of 56.6 - 109.0 sec. INR Coag (PPP) [Relative time] 1.26 {INR} Invalid Interpretation Code [facility] Comment on above: Interpretive Data: I NR results are specifically intended to assess patients stabilized on long-term Anticoagulation therapy suggested INR s Less Intensive Anticoagulation 2.0 3.0 Conventional Range 3.0 4.5 PT Coag (PPP) [Time] 14.1 s High 9.4 - 1 2.5 second(s) [facility] Comment on above: Interpretive [...] ranges were obtained from a study by karyn Yuan prepared from 1437 samples obtained at 7 different centers using the same coagulation reagent and instrumentation as [facility]. Currently there are no coagulation studies available worldwide for children to 14 days, and no normal ranges. Inpatient Patient Summaryon 11-02-2024 Inpatient Patient Summary Inpatient Patient Summary [address] [address] [facility] Clinical Discharge Instructions PERSON INFORMATION Name: CASSI RODRIGEZ PHYSICIANS Admitting Physician: Shashi De Souza MD Attending Physician: Shashi De Souza MD PCP: BRODERICK HOWARD DO Discharge Diagnosis: Comment: PATIENT EDUCATION INFORMATION Instructions: Medication Leaflets: Follow up: With: Address: When: Shashi Ap [address] [facility], [address] [place] [phone] Business (1) Comments: f/u3wks ok shower and remove dressing [id number] no lift>5lbs keep incis dry clean. restart coumadin 3 days after surgery. 11-05-24Wednesday. MEDICATION LIST New Medications [facility]/pharmacy #[id number], [address], [place] [phone], [phone] acetaminophen-oxycodone (Percocet 5 mg-325 mg oral tablet) [...] 6 days of the week. Comment: [facility] Main OR Intraoperative Recor don 11-02-2024 Main OR Intraoperative Record Main OR Intraoperative Record IntraOp Document Type FT Summary Primary Physician: Shashi De Souza MD Finalized Date/Time: 11/02/24 15:52:16 Pt. Name: CASSI RODRIGEZ DEVAN Mccormack./Sex: 1950 Female Med Rec #: [id number] Physician: Shashi De Souza MD Financial #: [id number] Pt. Type: A Room/Bed: [facility] Admit/Disch: 11/02/24 10:13:03 - Institution: Case Times FT Entry 1 Patient Times In Room 11/02/24 14:07:00 Out Room 11/02/24 15:48:00 Procedure Times Start 11/02/24 14:37:00 Stop 11/02/24 15:41:00 Anesthesia Times Start 11/02/24 14:07:00 Stop 11/02/24 15:48:00 Last Modified By: Renetta Melendez 11/02/24 15:51:38 Case Attendance FT Entry 1 Entry 2 Entry 3 Case Attendee Yash CARCAMO, Shashi Carrasco MD, Kelsie E Role Performed DEVELOPMENTAL BEHAVIORAL PHYSICIAN Surgeon - Primary Painting Supervisor - Primary Time In 11/02/24 14:07:00 11/02/24 [...] Katy Eastman Role Performed Scrub - Primary SPINDLE FRAME CARVER Spice Miller Time In 11/02/24 14:07:00 11/02/24 14:07:00 11/02/24 14:07:00 Time Out 11/02/24 15:48:00 11/02/24 15:48:00 11/02/24 15:48:00 Procedure LUMBAR LAMINECTOMY LUMBAR LAMINECTOMY LUMBAR LAMINECTOMY POSS. FUSION(.) POSS. FUSION(.) POSS. FUSION(.) Comments Last Modified By: Renetta Melendez Kelsie E Burgderfer, Kelsie E 11/02/24 15:51:39 11/02/24 15:51:39 11/02/24 15:51:39 Entry 7 Entry 8 Case Attendee Jin Presley Ii, Robert David Role Performed Staff - Other Anesthesiologist Architectural Intern Time In 11/02/24 14:07:00 11/02/24 14:53:00 Time [...] Time Out Ani Berrios CRNA, Given Participants Shashi De Souza MD, Renetta Melendez, Home Priest, Christal Perez, Katy [...] Post-Care Text: (more content not included)... Normal [facility] Main OR PACU I Recordon 10-15 Main OR PACU I Record Main OR PACU I Rec ord PACU Phase I Document Type FT Summary Primary Physician: Shashi De Souza MD Finalized Date/Time: 11/02/24 16:45:46 Pt. Name: CASSI RODRIGEZ /Sex: 1950 Female Med Rec #: [id number] Physician: Shashi De Souza MD Financial #: [id number] Pt. Type: A Room/Bed: N303/ Admit/Disch: 11/02/24 10:13:03 - Institution: Case Times [...] By: Josefina Tim RN 11/02/24 16:45 Normal [facility] Main OR Preoperative Recordo n 11-02-2024 Main OR Preoperative Record Main OR Preoperative Record PreOp Document Type FT Summary Primary Physician: Shashi De Souza MD Finalized Date/Time: 11/02/24 14:42:51 Pt. Name: CASSI RODRIGEZ /Sex: 1950 Female Med Rec #: [id number] Physician: Shashi De Souza MD Financial #: [id number] Pt. Type: A Room/Bed: [place] [address] Admit/Disch: 11/02/24 10:13:03 - Institution: Case Times [...] Renetta Melendez Document Signatures Signed By: Renetta Melenedz 11/02/24 14:42 Renetta Melendez 11/02/24 14:42 Normal [facility] Operative Reporton Operative Report Operative Report [...] was brought to the operating room at [facility]. Timeout procedure performed. Patient was intubated by [...] have unintended errors. Anesthesia type: General. Normal [facility] Comment on above: Result Comment: Elec tronically Signed By: Ap PAUL, Shashi Barragan\.br\Date and Time Signed: 11/02/24 15:54 EST Outpatient Surgery Discharge Instructionon 11-02-2024 Outpatient Surgery Discharge Instruction Outpatient Surgery Discharge Instruction [place] [id number] Patient Discharge Instructions PERSON INFORMATION Name: CASSI [...] up: With: Address: When: Shashi De Souza [address] [facility], [address] [place] [phone] Business (1) Comments: f/u3wks ok shower and remove dressing [id number] no lift>5lbs keep incis dry clean. restart [...] to serve you. Thank you for choosing [facility] HERE ARE THE MEDICATION CHANGES THAT OCCURRED DURING YOUR HOSPITAL STAY New Medications [id number], [address], [place] [phone], [phone] acetaminophen-oxycodone (Percocet 5 mg-325 mg oral tablet) [...] PATIENT EDUCATION INFORMATION Instructions: Medication Leaflets: Normal [facility] PT & PTTon 11-02-2024 aPTT Coag (PPP) [Time] 43.4 second(s) High 25.1-36.5 [facility] Comment on above: Result Comment: Para [...] same coagulation reagent and instrumentation as [facility]. Currently there are no coagulation studies available worldwide for children to 14 days, and no normal ranges. Heparin therapeutic range (represented by Anti-Factor Xa activity of 0.2 - 0.4 U/mL) corresponds to PTT of 56.6 - 109.0 sec. Performed By: #### 1 [id number] #### [facility] [address] [place] [address] INR Coag (PPP) [Relative time] 1.26 {INR} Invalid Interpretation Code [facility] Comment on above: Result Comment: INR results are specifically intended to assess patients stabilized on long-term Anticoagulation therapy suggested INR???s ???Less Intensive Anticoagulation??? 2.0 ??? 3.0 Conventional Range 3.0 ??? 4.5 Performed By: #### 1 [id number] #### [facility] [address] [place] [address] PT Coag (PPP) [Time] 14.1 second(s) High 9.4-12.5 [facility] Comment on above: Result Comment: 15 [...] same coagulation reagent and instrumentation as [facility]. Currently there are no coagulation studies available worldwide for children to 14 days, and no normal ranges. Performed By: #### 1 [id number] #### [facility] [address] [place] [address] Patient Education - Texton 1 01-03-2024 Patient Education - Text Patient Education - Text Normal [facility] ABO/Rh Retypeon 10-25-2024 ABO/Rh Retype Interp Positive Invalid Interpretation Code [facility] Comment on above: Performed By: #### 1 [id number] #### [facility] [address] [place] [address] BMPon 10-25-2024 Anion gap [Moles/Vol] 11 mmol/L Normal 6-16 [facility] Comment on above: Performed By: #### 2 [id number] #### [facility] [address] [place] [address] Calcium [Mass/Vol] 8.7 mg/dL Low 8.9-11.1 [facility] Comment on above: Performed By: #### 2 [id number] #### [facility] [address] [place] [address] Chloride [Moles/Vol] 109 mmol/L Normal 101-111 [facility] Comment on above: Performed By: #### 2 699126 #### [facility] [address] [place] [address] CO2 [Moles/Vol] 25 mmol/L Normal 21-31 [facility] Comment on above: Performed By: #### 2 862938 #### [facility] [address] [place] [address] Creatinine [Mass/Vol] 1.7 mg/dL High 0.5-1.3 [facility] Comment on above: Performed By: #### 2 464287 #### [facility] [address] [place] [address] Glucose [Mass/Vol] 104 mg/dL Normal 55-199 [facility] Comment on above: Performed By: #### 2 561865 #### [facility] [address] [place] [address] Potassium [Moles/Vol] 4.8 mmol/L Normal 3.5-5.3 [facility] Comment on above: Performed By: #### 2 731617 #### [facility] [address] [place] [address] Sodium [Moles/Vol] 140 mmol/L Normal 135-145 [facility] Comment on above: Performed By: #### 2 456725 #### [facility] [address] [place] [address] Urea nitrogen [Mass/Vol] 22 mg/dL High 5-21 [facility] Comment on above: Performed By: #### 2 654888 #### [facility] [address] [place] [address] Urea nitrogen/Creatinine [Mass ratio] 13 No Units Normal 10-20 [facility] Comment on above: Performed By: #### 2 [id number] #### [facility] [address] [place] [address] CBC w/ Auto Diffon 4 Basophils/100 WBC (Bld) 0.6 % Normal 0.0-2.0 [facility] Comment on above: Performed By: #### 2 150655 #### [facility] [address] [place] [address] Basophils/Leukocytes Auto (Bld) [Pure # fraction] 0.0 E9/L Normal 0.0-0.2 [facility] Comment on above: Performed By: #### 2 943664 #### [facility] [address] [place] [address] Eosinophils (Bld) [#/Vol] 0.3 E9/L Normal 0.0-0.5 [facility] Comment on above: Performed By: #### 2 115875 #### [facility] [address] [place] [address] Eosinophils/100 WBC (Bld) 6.0 % Normal 0.0-8.0 [facility] Comment on above: Performed By: #### 2 122836 #### [facility] [address] [place] [address] Erythrocyte distribution width (RBC) [Ratio] 14.1 % Normal 10.9-14.2 [facility] Comment on above: Performed By: #### 2 795476 #### [facility] [address] [place] [address] Hematocrit (Bld) [Volume fraction] 36.8 % Normal 34.0-46.0 [facility] Comment on above: Performed By: #### 2 825403 #### [facility] [address] [place] [address] Hemoglobin (Bld) [Mass/Vol] 12.4 g/dL Normal 12.0-16.0 [facility] Comment on above: Performed By: #### 2 060855 #### [facility] [address] [place] [address] [place] [address] Lymphocytes (Bld) [#/Vol] 0.7 E9/L Low 1.0-4.0 [facility] Comment on above: Performed By: #### 2 [id number] #### [facility] [address] [place] [address] Lymphocytes/100 WBC (Bld) 15.2 % Normal 14.0-50.0 [facility] Comment on above: Performed By: #### 2 168656 #### [facility] [address] [place] [address] MCH (RBC) [Entitic mass] 31.4 pg Normal 27.0-34.0 [facility] Comment on above: Performed By: #### 2 [id number] #### [facility] [address] [place] [address] MCHC (RBC) [Mass/Vol] 33.8 g/dL Normal 31.4-36.0 [facility] Comment on above: Performed By: #### 2 [id number] #### [facility] [address] [place] [address] MCV (RBC) [Entitic vol] 93.0 fL Normal 80.0-100.0 [facility] Comment on above: Performed By: #### 2 972520 #### [facility] [address] [place] [address] Monocytes (Bld) [#/Vol] 0.3 E9/L Normal 0.2-1.0 [facility] Comment on above: Performed By: #### 2 [id number] #### [facility] [address] [place] [address] Neutrophils (Bld) [#/Vol] 3.4 E9/L Normal 2.0-7.5 [facility] Comment on above: Performed By: #### 2 [id number] #### [facility] [address] [place] [address] Neutrophils/100 WBC (Bld) 71.7 % Normal 36.0-75.0 [facility] Comment on above: Performed By: #### 2 [id number] #### [facility] [address] [place] [address] Platelet 228.0 E9/L Normal 150.0-500. 0 [facility] Comment on above: Performed By: #### 2 862086 #### [facility] [address] [place] [address] Platelet mean volume (Bld) [Entitic vol] 7.4 fL Normal 6.4-10.8 [facility] Comment on above: Performed By: #### 2 621400 #### [facility] [address] [place] [address] RBC (Bld) [#/Vol] 4.0 E12/L Low 4.3-5.9 [facility] Comment on above: Performed By: #### 2 901100 #### [facility] [address] [place] [address] WBC corrected for nucl RBC Auto (Bld) [#/Vol] 4.7 E9/L Normal 4.0-11.0 [facility] Comment on above: Performed By: #### 2 011577 #### [facility] [address] [place] [address] CT Spine Lumbar w/o Contrast on 10-25-2024 [...] Sunshine MD Transcribed by: CL[place]ON Technologist: COCO Duarte [facility] Plt Function Assayon 024 Platelet function (closure time) collagen+EPINEPHrine induced (Bld) [Time] 78 second(s) Normal 70-138 [facility] Comment on above: Result Comment: Norm al ASA vWD Glanzmann???s Thrombasthenia ------- ------ ------- COL/EPI Normal Abnormal Abnormal Abnormal Col/ADP Normal Normal Abnormal Abnormal Performed By: #### 1 [id number] #### [facility] [address] [place] [address] UA with Cult Rflxon 10-25-20 24 Bilirubin Ql (U) Negative Normal Negative [facility] Comment on above: Performed By: #### 4 [id number] #### [facility] [address] [place] [address] Clarity (U) Clear Normal Clear [facility] Comment on above: Performed By: #### 4 [id number] #### [facility] [address] [place] [address] Color (U) Light-Yellow Normal Yellow [facility] Comment on above: Result Comment: Micr oscopic readings are only performed on those samples that meet specific criteria set forth by [facility]. Performed By: #### 4 [id number] #### [facility] [address] [place] [address] Glucose Ql (U) Negative Normal Negative [facility] Comment on above: Performed By: #### 4 [id number] #### [facility] [address] [place] [address] Hemoglobin Auto test strip (U) [Mass/Vol] Negative Normal Negative [facility] Comment on above: Performed By: #### 4 [id number] #### [facility] [address] [place] [address] Ketones Auto test strip Ql (U) Negative Normal Negative [facility] Comment on above: Performed By: #### 4 [id number] #### [facility] [address] [place] [address] Leukocyte esterase Auto test strip Ql (U) Negative Normal Negative [facility] Comment on above: Performed By: #### 4 [id number] #### [facility] [address] [place] [address] Nitrite Auto test strip Ql (U) Negative Normal Negative [facility] Comment on above: Performed By: #### 4 [id number] #### [facility] [address] [place] [address] pH (U) 5.5 [pH] Invalid Interpretation Code 5.0-9.0 [facility] Comment on above: Performed By: #### 4 [id number] #### [facility] [address] [place] [address] Protein Ql (U) Negative Normal Negative [facility] Comment on above: Performed By: #### 4 [id number] #### [facility] [address] [place] [address] Specific gravity (U) [Rel density] 1.018 Invalid Interpretation Code 1.005-1.03 0 [facility] Comment on above: Performed By: #### 4 [id number] #### [facility] [address] [place] [address] Urobilinogen (U) [Mass/Vol] Negative Normal Negative [facility] Comment on above: Performed By: #### 4 [id number] #### [facility] [address] [place] [address] Type of Urine collection method Clean Catch Normal [facility] Comment on above: Performed By: #### 4 [id number] #### [facility] [address] [place] [address] XR Chest 2 Viewson XR Chest 2 [...] mGy = . DAP = . Normal [facility] eGFRon 10-25-2024 eGFR 31 mL/min/1.73 m2 Low >=59 [facility] Comment on above: Performed By: #### 1 [id number] #### [facility] [address] [place] [address] ECHOon 10-02-2024 Echocardiography Echocardiography Rep ort: Transthoracic Echo [facility] Date of service: 10/02/2024 2:44:31 PM [employer] Ordering physician: KITTY MILLARD Indication: Evaluation of device (pacemaker, ICD, or WAD BLANKING PRESS ADJUSTER) after revascularization Technologist: Iwona HUANG Interpreting physician: [...] indication: Evaluation of device (pacemaker, ICD, or WAD BLANKING PRESS ADJUSTER) after revascularization - The left ventricle is [...] * * * Final * * * [employer] [facility] [employer] : [id number] [facility] CNOVon 09-05-2024 CNOV Office Visit (NEADFV ) -- CASSI RODRIGEZ ([id number]) 1950 F Date Time Provider Department 09/05/24 [...] Jewell RN Botox, 2 vials: Lot # [id number] Exp 10/2026 Lot # [id number] Exp 10/[address] Reilly to administer and verified order. Randa Reilly MD 09/05/2024 1:54 PM Signed PROGRESS NOTE- HEADACHE MEDICINE SERVICE DATE: September 05, 2024 Location: [facility] Participants: patient, and provider HPI: [...] 3.Referral to sleep medicine Randa Reilly MD [facility] Randa Reilly MD 09/05/2024 1:54 PM Signed [...] Injection Sites Muscle Fixed Site/Fixed Dose Bilat House Wrecker 20 U divided in 2 sites Procerus [...] Total Units wasted: 0 Randa Reilly MD [facility] R (more content not included)... Normal [facility] ECG COMPLETEon 09-01-2024 Atrial Rate 81 BPM [facility] Calculated P [place] 74 degrees [facility] Calculated R [place] 73 degrees [facility] Calculated T [place] 67 degrees [facility] P-R Interval 186 ms [facility] QRS Duration 80 ms [facility] QT Interval 386 ms [facility] QTC Calculation (Bazett) 448 ms [facility] Ventricular Rate 81 BPM [facility] ATRIAL-PACED RHYTHM LOW VOLTAGE QRS, CONSIDER PULMONARY DISEASE, PERICARDIAL EFFUSION, OR NORMAL VARIANT ABNORMAL ECG Confirmed by JONATHAN TELLEZ MD ([id number]) on 09/01/2024 1:53:38 PM [facility] NAME : CASSI RODRIGEZ PID : [id number] : 1950 Gender : Female Race : [...] by : , [facility] CNOVon 08-31-2024 CNOV Office Visit (CAEPAV ) -- CASSI RODRIGEZ ([id number]) 1950 F Date Time Provider Department 08/31/24 10:00 AM KITTY VALENTE During your visit today, we recorded the following information about you: Pulse Blood pressure Weight Height 81/minute 134/72 88 kg 1.575 m Kitty Valente MD 09/02/2024 12:42 AM [facility] Guy Renteria Department of Cardiovascular Medicine SECTION OF CARDIAC PACING and ELECTROPHYSIOLOGY OUTPATIENT VISIT DATE NASRIN July 23, 2022 August 31, 2024 OUTPATIENT VISIT TYPE ESTABLISHED PRIMARY CARE PHYSICIAN: Broderick Howard MD ([facility]) [facility] [place] [id number] CHIEF COMPLAINT: Pacemaker management HISTORY OF PRESENT [...] Review of (more content not included)... Normal [facility] [id number] 08-31-2024 ECG01 Ventricular Rate : 8 1 BPM Atrial Rate : 81 BPM P-R Interval : 186 ms QRS Duration : 80 ms Q-T Interval : 386 ms QTC Calculation(Bazett) : 448 ms Calculated P [place] : 74 degrees Calculated R [place] : 73 degrees Calculated T Sciota : 67 degrees ATRIAL-PACED RHYTHM LOW VOLTAGE QRS, CONSIDER PULMONARY DISEASE, PERICARDIAL EFFUSION, OR NORMAL VARIANT ABNORMAL ECG Confirmed by JONATHAN TELLEZ MD ([id number]) on 09/01/2024 1:53:38 PM NAME : CASSI RODRIGEZ PID : [id number] : 1950 Gender : Female Race : [...] : , Acquired by : , Normal [facility] Erythrocyte distribution wid th Auto (RBC) [Ratio]on 08-28-2024 Erythrocyte distribution width (RBC) [Ratio] 13.0 % 11.0-15.0 [facility] Erythrocyte distribution width [...] 08-28-2024 Albumin [Mass/Vol] 3.3 g/dL Low 3.4-5.0 [facility] Calcium [Mass/Vol] 8.6 mg/dL 8.5-10.1 [facility] Chloride [Moles/Vol] 108 mmol/L High 98-107 [facility] CO2 [Moles/Vol] 21.8 mmol/L 21.0-32.0 [facility] Creatinine [Mass/Vol] 1.91 mg/dL High 0.55-1.02 [facility] Ferritin [Mass/Vol] 15.0 ng/mL 8.0-252.0 [facility] GFR/1.73 sq M.predicted MDRD (S/P/Bld) [Vol rate/Area] 31 mL/min/{1.73_m2} Low >=60 mL/min/1.7 3m 2 [facility] Glucose [Mass/Vol] 135 mg/dL High 74-106 [facility] Iron [Mass/Vol] 51.0 ug/dL 50.0-170.0 [facility] Magnesium [Mass/Vol] 2.0 mg/dL 1.8-2.4 [facility] Potassium [Moles/Vol] 4.0 mmol/L 3.5-5.1 [facility] Sodium [Moles/Vol] 142 mmol/L 136-145 [facility] Urate [Mass/Vol] 5.0 mg/dL 2.6-6.0 [facility] Urea nitrogen [Mass/Vol] 24.0 mg/dL High 7.0-18.0 [facility] Urea nitrogen/Creatinine [Mass ratio] 12.6 mg/mg [facility] Bilirubin Ql (U) Negative NEGATIVE [facility] Glucose (U) [Mass/Vol] Negative NEGATIVE [facility] Ketones Ql (U) Negative NEGATIVE [facility] pH (U) 5.5 [pH] 5.0-9.0 [facility] Specific gravity (U) [Rel density] 1.025 1.005-1.02 5 [facility] Urobilinogen Qn (U) 0.2 {Lin'U}/dL 0.2-1.0 [facility] Laboratory - Specimen inform ationon 08-28-2024 Appearance (U) CLEAR CLEAR [facility] Color (U) YELLOW YELLOW [facility] Laboratory - Urinalysison Leukocyte esterase Test strip Ql (U) Negative NEGATIVE [facility] Mucus Ql (Urine sed) NONE SEEN NONE SEEN [facility] Nitrite Ql (U) Negative NEGATIVE [facility] Protein (U) [Mass/Vol] 16.2 mg/dL High <=11.9 [facility] Protein Ql (U) Negative NEG/TRACE [facility] [...] 08-28-2024 MCHC (RBC) [Mass/Vol] 31.6 g/dL 29.9-35.2 [facility] MCHC (RBC) [Mass/Vol] MCHC [Mass/volume] by Automated count 29.9-35.2 [facility] MCV Auto (RBC) [Entitic vol] on 08-28-2024 MCV (RBC) [Entitic vol] 98.4 fL 81.0-99.[address] [facility] MCV (RBC) [Entitic vol] MCV [Entitic vol ume] by Automated count 81.0-99.0 [facility] No Panel Informationon 08-28 25-Hydroxy Vitamin D Total 22.3 ng/mL [facility] Comment on above: <20 ng/mL Vit D defi cient20-<30 ng/mL Vit D [id number] ng/mL Vit D sufficient>100 ng/mL Potential Toxicity Parathyroid Hormone (Intact) 194 pg/mL Abnormal 15-65 [facility] Comment on above: Performed at: [place] [id number] Director: Junaid Sawyer PhD, Phone: [phone] Phosphorus Level 3.0 mg/dL 2.6-4.7 [facility] Urine Bacteria NONE SEEN #/HPF NONE SEEN [facility] Urine Occult Blood Negative NEGATIVE [facility] Urine Other Casts NONE SEEN #/LPF NONE SEEN [facility] Urine Other Crystals None Seen #/HPF [...] (Bld) [#/Vol] 3.80 10 6/uL Low 4.20-5.40 [facility] RBC (Bld) [#/Vol] Erythrocytes [#/volu me] in Blood by Automated count Low 4.20-5.40 [facility] Serum or plasma anion gap de terminationon 08-28-2024 Anion gap [Moles/Vol] 16.2 mmol/L [facility] Anion gap [Moles/Vol] Serum or plasma [...] Basophils/100 WBC (Bld) 0.7 % 0.2-2.[address] [facility] Eosinophils/100 WBC Auto (Bl d)on [...] [facility] [place] Ferritin [Mass/Vol] 24.0 ng/mL 8.0-252.0 [facility] Iron [Mass/Vol] 65.0 ug/dL 50.0-170.0 [facility] [...] (RBC) [Entitic vol] 94.6 fL 81.0-99.[address] [facility] Monocytes Auto (Bld) [#/Vol] on 07-05-2024 Monocytes (Bld) [#/Vol] 0.4 10 3/uL 0.3-0.8 [facility] Monocytes/100 WBC Auto (Bld) on 07-05-2024 Monocytes/100 WBC (Bld) 6.5 % 1.7-12.[address] [facility] Neutrophils Auto (Bld) [#/Vo l]on [...] [facility] Folate 10.80 ng/mL 8.60-58.90 [facility] [...] (Bld) [#/Vol] 3.86 10 6/uL Low 4.20-5.40 [facility] Comprehensive metabolic 2000 panelon 06-29-2024 Albumin [Mass/Vol] 4.3 g/dL 3.9 - 4.9 g/dL [facility] ALP [Catalytic activity/Vol] 170 U/L High 34 - 123 U/L [facility] ALT [Catalytic activity/Vol] 28 U/L 7 - 38 U/L [facility] Anion gap [Moles/Vol] 8 mmol/L 8 - 15 mmol/L [facility] AST [Catalytic activity/Vol] 22 U/L 13 - 35 U/L [facility] Bilirubin [Mass/Vol] 0.4 mg/dL 0.2 - 1 .3 mg/dL [facility] Calcium [Mass/Vol] 8.8 mg/dL 8.5 - 10. 2 mg/dL [facility] Chloride [Moles/Vol] 109 mmol/L High 98 - 10 7 mmol/L [facility] CO2 [Moles/Vol] 24 mmol/L 22 - 30 mmol/L [facility] Creatinine [Mass/Vol] 1.73 mg/dL High 0.58 - 0.96 mg/dL [facility] GFR/1.73 sq M.predicted among non-blacks MDRD (S/P/Bld) [Vol rate/Area] 31 mL/min/{1.73_m2} Low - PINF [facility] Comment on above: Estimated Glomerular Filtration [...] 111 mg/dL High 74 - 99 mg/dL [facility] Comment on above: The [place] Diab[employer] s Association (ADA) provides guidance for [...] Standards of Medical Care in Diabetes 2016, [place] Diabetes Association. Diabetes Care. 2016.39(Suppl 1). Interpretation and review of laboratory results Abnormal [facility] Potassium [Moles/Vol] 5.1 mmol/L 3.7 - 5.1 mmol/L [facility] Protein [Mass/Vol] 7.0 g/dL 6.3 - 8.0 g/dL [facility] Sodium [Moles/Vol] 141 mmol/L 136 - 144 mmol/L [facility] Urea nitrogen [Mass/Vol] 34 mg/dL High 7 - 21 mg/dL [facility] LEVETIRACETAMon 06-29-2024 levETIRAcetam [Mass/Vol] 59.9 ug/mL High 12.0 - 46.0 ug/mL [facility] Comment on above: This test is [...] developed and its performance characteristics determined by [facility]'s [facility] Pathology and Laboratory Medicine [facility] ([facility]). It has not been cleared or approved by the FDA. [facility] is regulated under CLIA as qualified to perform high-complexity testing. This test is used for clinical purposes. It should not be regarded as investigational or for research. Laboratory - Chemistry and C hemistry - challengeon 06-29-2024 Albumin [Mass/Vol] 4.3 g/dL 3.9-4.9 [facility] ALP [Catalytic activity/Vol] 170 U/L High 34-123 [facility] ALT [Catalytic activity/Vol] 28 U/L 7-38 [facility] AST [Catalytic activity/Vol] 22 U/L 13-35 [facility] Bilirubin [Mass/Vol] 0.4 mg/dL 0.2-1.3 [facility] Calcium [Mass/Vol] 8.8 mg/dL 8.5-10.2 [facility] Chloride [Moles/Vol] 109 mmol/L High 98-107 [facility] CO2 [Moles/Vol] 24 mmol/L 22-30 [facility] Creatinine [Mass/Vol] 1.73 mg/dL High 0.58-0.96 [facility] Glucose [Mass/Vol] 111 mg/dL High 74-99 [facility] Comment on above: The [place] Diabete s Association (ADA) provides guidance for [...] Standards of Medical Care in Diabetes 2016, [place] Diabetes Association. Diabetes Care. 2016.39(Suppl 1). Potassium [Moles/Vol] 5.1 mmol/L 3.7-5.1 [facility] Sodium [Moles/Vol] 141 mmol/L 136-144 [facility] Urea nitrogen [Mass/Vol] 34 mg/dL High [...] developed and its performance characteristics determined by [facility]'s [facility] Path[facility] and Laboratory [facility] ([facility]). It has not been cleared or approved by the FDA. -[facility] is regulated under CLIA as qualified to perform high-complexity testing. This test is used for clinical purposes. It should not be regarded as investigational or for research. Protein [Mass/volume] in Ser um or Plasmaon 06-29-2024 Protein [Mass/Vol] 7.0 g/dL 6.3-8.0 [facility] Serum or plasma anion gap de terminationon 06-29-2024 Anion gap [Moles/Vol] 8 mmol/L 06-29 [facility] levETIRAcetam [Mass/Vol]on 0 06-29-2024 Interpretation and review of laboratory results Abnormal [facility] INR in Platelet poor plasma by Coagulation assayon 06-05-2024 INR Coag (PPP) [Relative time] 2.29 {INR} [facility] Comment on above: DESIRED INR:2.0-3.0 CONDITIONS NOT LISTED BELOW2.5-3.5 FOR PROSTHETIC HEART VALVE REPLACEMENT2.5-3.5 RECURRENT THROMBOSIS Prothrombin time (PT)on 05-16 PT Coag (PPP) [Time] 22.4 s High 9.0-11.6 [facility] Creatinine (Bld) [Mass/Vol]O rdered By: David [...] Coag (PPP) [Time] 26.0 s High 9.0-11.6 [facility] Basophils Auto (Bld) [#/Vol] on 05-05-2024 Basophils (Bld) [#/Vol] 0.0 10 3/uL 0.0-0.1 [facility] Basophils/100 WBC Auto (Bld) on 05-05-2024 Basophils/100 WBC (Bld) 1.1 % 0.2-2.0 [facility] Eosinophils/100 WBC Auto (Bl d)on 05-05-2024 [...] 05-05-2024 Calcium [Mass/Vol] 8.4 mg/dL Low 8.5-10.1 [facility] Chloride [Moles/Vol] 108 mmol/L High 98-107 [facility] CO2 [Moles/Vol] 26.2 mmol/L 21.0-32.0 [facility] Creatinine [Mass/Vol] 1.60 mg/dL High 0.55-1.02 [facility] GFR/1.73 sq M.predicted MDRD (S/P/Bld) [Vol rate/Area] 38 mL/min/{1.73_m2} Low >=60 [facility] Glucose [Mass/Vol] 103 mg/dL 74-106 [facility] Potassium [Moles/Vol] 4.4 mmol/L 3.5-5.1 [facility] Sodium [Moles/Vol] 140 mmol/L 136-145 [facility] Urea nitrogen [Mass/Vol] 24.0 mg/dL High 7.0-18.0 [facility] Urea nitrogen/Creatinine [Mass ratio] 15.0 mg/mg [facility] Laboratory - Hematology and Cell countson 05-05-2024 ESR (Bld) [Velocity] 45 mm/h High <=30 [facility] Immature granulocytes/100 WBC (Bld) 0.0 % [...] (RBC) [Entitic vol] 92.2 fL 81.0-99.[address] [facility] Monocytes Auto (Bld) [#/Vol] on 05-05-2024 Monocytes (Bld) [#/Vol] 0.3 10 3/uL 0.3-0.8 [facility] Monocytes/100 WBC Auto (Bld) on 05-05-2024 Monocytes/100 WBC (Bld) 8.2 % 1.7-12.[address] [facility] Neutrophils Auto (Bld) [#/Vo l]on [...] (Bld) [#/Vol] 3.85 10 6/uL Low 4.20-5.40 [facility] Serum or plasma anion gap de terminationon 05-05-2024 Anion gap [Moles/Vol] 10.2 mmol/L [facility] No Panel Informationon 03-15 BLANK _ [facility] Implant Date 05/22/2015 [facility] Model 5076 CapSureFix [employer] [facility] PACEMAKER REMOTE CHECKon AV Delay Adaptive Paced Minimum (ms) 180 ms [facility] AV Delay Adaptive Sensed Minimum (ms) 150 ms [facility] AV Delay Adaptive Status DISABLED [facility] Battery Voltage (volts) 2.92 V [facility] Godfrey RA Pacing Amplitude (volts) 1.5 V [facility] Godfrey RA Pacing Polarity BI [facility] Godfrey RA Pacing Pulse Width (ms) 0.4 ms [facility] Godfrey RA Sensing Amplitude (mvolts) 0.3 mV [facility] Godfrey RA Sensing Blanking Period (ms) 150 ms [facility] Godfrey RA Sensing Polarity BI [facility] Godfrey RA Sensing Refractory Period (ms) Auto [facility] Godfrey RV Pacing Amplitude (volts) 2 V [facility] Godfrey RV Pacing Polarity BI [facility] Godfrey RV Pacing Pulse Width (ms) 0.4 ms [facility] Godfrey RV Sensing Amplitude (mvolts) 0.9 mV [facility] Godfrey RV Sensing Blanking Period (ms) 200 ms [facility] Godfrey RV Sensing Polarity BI [facility] Hysteresis Rate (bpm) DISABLED [facility] Lead1 Mfg MDT [facility] Lead2 Mfg MDT [facility] Location RV [facility] Location RA [facility] Lower Rate (bpm) 60 {beats}/min [facility] Max Sensor Rate (bmp) 130 {beats}/min [facility] Model [id number] Advisirving COBOS [facility] PM-Device Mfg MDT [facility] PM-Percent Pacing (A) 99.48 % [facility] PM-Percent Pacing (V) 0.27 % [facility] PM-PMT Intervention ENABLED [facility] PM-PVC Intervention ENABLED [facility] PM-Rate Modulation Acceleration Reaction 30 s [facility] PM-Rate Modulation ADL Rate (bpm) 100 {beats}/min [facility] PM-Rate Modulation Deceleration Exercise [facility] PM-Rate Modulation Threshold MediumLow [facility] RA Bipolar Impedance ohms 418 ohm [facility] RA Unipolar Impedance ohms 399 ohm [facility] RV Bipolar Impedance ohms 532 ohm [facility] RV Unipolar Impedance 494 ohm [facility] Serial Number [id number] [facility] Serial Number [id number] [facility] Serial Number [id number] [facility] Thresh RA Capture Amplitude (volts) 0.5 V [facility] Thresh RA Capture Duration (ms) 0.4 ms [facility] Thresh RA Sensing Amplitude (mvolts) 3.125 mV [facility] Thresh RV Capture Amplitude (volts) 0.875 V [facility] Thresh RV Capture Duration (ms) 0.4 ms [facility] Thresh RV Sensing Amplitude (mvolts) 11.875 mV [facility] Tracking Rate (bpm) 130 {beats}/min [facility] 03/15/2024 Formattin g of this note [...] CARDIAC DATA AND REPORT, Scanned Documents section. [facility] Albumin [Mass/volume] in Ser um or Plasmaon 03-03-2024 Albumin [Mass/Vol] 3.5 g/dL 2.9-4.4 [facility] Basophils Auto (Bld) [#/Vol] on 03-03-2024 Basophils (Bld) [#/Vol] 0.0 10 3/uL 0.0-0.1 [facility] Basophils/100 WBC Auto (Bld) on 03-03-2024 Basophils/100 WBC (Bld) 0.7 % 0.2-2.[address] [facility] Eosinophils/100 WBC Auto (Bl d)on [...] 03-03-2024 Globulin (S) [Mass/Vol] 3.6 g/dL F [facility] Hematocrit Auto (Bld) [Volum e [...] [facility] [place] Comment on above: Performed at: [address] [id number] Director: Junaid Sawyer PhD, Phone: [phone] Immunoglobulin light chains. lambda.free [Mass/volume] in Serum [...] 03-03-2024 Albumin [Mass/Vol] 3.3 g/dL Low 3.4-5.0 [facility] ALP [Catalytic activity/Vol] 155 U/L High 46-116 [facility] ALT [Catalytic activity/Vol] 21 U/L 14-59 [facility] AST [Catalytic activity/Vol] 25 U/L 15-37 [facility] Bilirubin [Mass/Vol] 0.4 mg/dL 0.2-1.0 [facility] Calcium [Mass/Vol] 9.0 mg/dL 8.5-10.1 [facility] Chloride [Moles/Vol] 106 mmol/L 98-107 [facility] CO2 [Moles/Vol] 21.4 mmol/L 21.0-32.0 [facility] Cobalamin (Vitamin B12) [Mass/Vol] 495.0 pg/mL 193.0-986. 0 [facility] Creatinine [Mass/Vol] 1.50 mg/dL High 0.55-1.02 [facility] Ferritin [Mass/Vol] 19.0 ng/mL 8.0-252.0 [facility] GFR/1.73 sq M.predicted MDRD (S/P/Bld) [Vol rate/Area] 41 mL/min/{1.73_m2} Low >=60 [facility] Glucose [Mass/Vol] 113 mg/dL High 74-106 [facility] Iron [Mass/Vol] 26.0 ug/dL Low 50.0-170.0 [facility] Potassium [Moles/Vol] 4.3 mmol/L 3.5-5.1 [facility] Protein [Mass/Vol] 6.9 g/dL 6.4-8.2 [facility] Sodium [Moles/Vol] 139 mmol/L 136-145 [facility] Urea nitrogen [Mass/Vol] 25.0 mg/dL High [...] 03-03-2024 MCHC (RBC) [Mass/Vol] 30.7 g/dL 29.9-35.2 [facility] MCV Auto (RBC) [Entitic vol] on 03-03-2024 MCV (RBC) [Entitic vol] 93.9 fL 81.0-99.[address] [facility] Monocytes Auto (Bld) [#/Vol] on 03-03-2024 Monocytes (Bld) [#/Vol] 0.3 10 3/uL 0.3-0.8 [facility] Monocytes/100 WBC Auto (Bld) on 03-03-2024 Monocytes/100 WBC (Bld) 9.7 % 1.7-12.[address] [facility] Neutrophils Auto (Bld) [#/Vo l]on 03-03-2024 Neutrophils (Bld) [#/Vol] 1.4 10 3/uL 1.4-6.5 [facility] Neutrophils/100 WBC Auto (Bl d)on 03-03-2024 Neutrophils/100 WBC (Bld) 51.2 % 43.0-75.0 [facility] No Panel Informationon 03-03 Eosinophils # (Auto) 0.3 10 3/uL 0.0-0.7 [facility] Folate 9.50 ng/mL 8.60-58.90 [facility] Immature Granulocyte # (Auto) 0.00 10 3/uL 0.00-0.03 [facility] Protein Electrophoresis M-Miguel Not Observed g/dL Not Observed [facility] Protein Electrophoresis Note Comment . [facility] Comment on above: Protein electrophore sis scan will follow via computer,mail, or cold water machine operator delivery. Platelet mean volume Auto (B ld) [Entitic vol]on 03-03-2024 Platelet mean volume (Bld) [Entitic vol] 9.4 fL Low 9.5-13.5 [facility] Platelets Auto (Bld) [#/Vol] on 03-03-2024 Platelets (Bld) [#/Vol] 203 10 3/uL 150-450 [facility] Protein [Mass/volume] in Ser um or Plasmaon 03-03-2024 Protein [Mass/Vol] 6.2 g/dL 6.0-8.5 [facility] RBC Auto (Bld) [#/Vol]on RBC (Bld) [#/Vol] 4.13 10 6/uL Low 4.20-5.40 [facility] Serum globulin measurement ( mass/volume)on 03-03-2024 Globulin (S) [Mass/Vol] 2.7 g/dL 2.2-3.[address] [facility] Serum or plasma albumin/glob ulin [...] 03-03-2024 Anion gap [Moles/Vol] 15.9 mmol/L Fi [facility] Serum or plasma beta globuli [...] 02-10-2024 Globulin (S) [Mass/Vol] 3.7 g/dL F [facility] Laboratory - Chemistry and C hemistry - challengeon 02-10-2024 Albumin [Mass/Vol] 3.3 g/dL 3.4-5.0 [facility] ALP [Catalytic activity/Vol] 174 U/L 46-116 [facility] ALT [Catalytic activity/Vol] 24 U/L 14-59 [facility] Amylase [Catalytic activity/Vol] 16 U/L 25-115 [facility] AST [Catalytic activity/Vol] 19 U/L 15-37 [facility] Bilirubin [Mass/Vol] 0.4 mg/dL 0.2-1.0 [facility] Calcium [Mass/Vol] 8.6 mg/dL 8.5-10.1 [facility] Chloride [Moles/Vol] 107 mmol/L 98-107 [facility] CO2 [Moles/Vol] 26.8 mmol/L 21.0-32.0 [facility] Creatinine [Mass/Vol] 1.81 mg/dL 0.55-1.02 [facility] GFR/1.73 sq M.predicted MDRD (S/P/Bld) [Vol rate/Area] 33 mL/min/{1.73_m2} >=60 [facility] Glucose [Mass/Vol] 85 mg/dL 74-106 [facility] Lipase [Catalytic activity/Vol] 13.0 U/L 16.0-77.0 [facility] Potassium [Moles/Vol] 4.6 mmol/L 3.5-5.1 [facility] Protein [Mass/Vol] 7.0 g/dL 6.4-8.2 [facility] Sodium [Moles/Vol] 143 mmol/L 136-145 [facility] Urea nitrogen [Mass/Vol] 25.0 mg/dL 7.0-18.0 [facility] Urea nitrogen/Creatinine [Mass ratio] 13.8 mg/mg [facility] Serum or plasma albumin/glob ulin mass ratioon 02-10-2024 Albumin/Globulin [Mass ratio] 0.9 {ratio} [facility] Serum or plasma anion gap de terminationon 02-10-2024 Anion gap [Moles/Vol] 13.8 mmol/L [facility] Serum or plasma cancer antig en 19-9 measurement (units/volume)on 02-10-2024 Cancer Ag 19-9 Qn 13 [arb'U]/mL 0-35 [facility] Comment on above: [employer] El ectrochemiluminescence Immunoassay(ECLIA)Values obtained with different assay methods or kits cannotbe used interchangeably. Results cannot be interpreted asabsolute evidence of the presence or absence of malignantdisease.Performed at: [facility] [address] [id number] Director: Junaid Sawyer PhD, Phone: [phone] No Panel Informationon 09-08 BLANK _ [facility] Implant Date 05/22/2015 [facility] Model 5076 [employer]Fix [facility] PACEMAKER CLINIC CHECKon AV Delay Adaptive Paced Minimum (ms) 180 ms [facility] AV Delay Adaptive Sensed Minimum (ms) 150 ms [facility] AV Delay Adaptive Status DISABLED [facility] Battery Voltage (volts) 2.94 V [facility] Godfrey RA Pacing Amplitude (volts) 1.5 V [facility] Godfrey RA Pacing Polarity BI [facility] Godfrey RA Pacing Pulse Width (ms) 0.4 ms [facility] Godfrey RA Sensing Amplitude (mvolts) 0.3 mV [facility] Godfrey RA Sensing Blanking Period (ms) 150 ms [facility] Godfrey RA Sensing Polarity BI [facility] Godfrey RA Sensing Refractory Period (ms) Auto [facility] Godfrey RV Pacing Amplitude (volts) 2 V [facility] Godfrey RV Pacing Polarity BI [facility] Godfrey RV Pacing Pulse Width (ms) 0.4 ms [facility] Godfrey RV Sensing Amplitude (mvolts) 0.9 mV [facility] Godfery RV Sensing Blanking Period (ms) 200 ms [facility] Godfrey RV Sensing Polarity BI [facility] Hysteresis Rate (bpm) DISABLED [facility] Lead1 Jorge PAULT [facility] Lead2 Jorge PAULT [facility] Location RV [facility] Location RA [facility] Lower Rate (bpm) 60 {beats}/min [facility] Max Sensor Rate (bmp) 130 {beats}/min [facility] Model [id number] COBOS [facility] PM-Device Mfg MDT [facility] PM-Percent Pacing (A) 99.4 % [facility] PM-Percent Pacing (V) 0.24 % [facility] PM-PMT Intervention ENABLED [facility] PM-PVC Intervention ENABLED [facility] PM-Rate Modulation Acceleration Reaction 30 s [facility] PM-Rate Modulation ADL Rate (bpm) 100 {beats}/min [facility] PM-Rate Modulation Deceleration Exercise [facility] PM-Rate Modulation Threshold MediumLow [facility] RA Bipolar Impedance ohms 456 ohm [facility] RA Unipolar Impedance ohms 418 ohm [facility] RV Bipolar Impedance ohms 551 ohm [facility] RV Unipolar Impedance 532 ohm [facility] Serial Number [id number] [facility] Serial Number [id number] [facility] Serial Number [id number] [facility] Thresh RA Capture Amplitude (volts) 0.5 V [facility] Thresh RA Capture Duration (ms) 0.4 ms [facility] Thresh RA Sensing Amplitude (mvolts) 1.5 mV [facility] Thresh RV Capture Amplitude (volts) 0.75 V [facility] Thresh RV Capture Duration (ms) 0.4 ms [facility] Thresh RV Sensing Amplitude (mvolts) 13.125 mV [facility] Tracking Rate (bpm) 130 {beats}/min [facility] Basophils Auto (Bld) [#/Vol] Ordered By: Niki Weeks on 08-05-2023 Basophils (Bld) [#/Vol] 0.0 10*3/uL 0.0-0.2 [facility] Basophils/100 WBC Auto (Bld) Ordered By: Niki Weeks on 08-05-2023 Basophils/100 WBC (Bld) 0.2 % . F [facility] Calcium [Mass/volume] in Ser um or PlasmaOrdered By: Niki Weeks on 08-05-2023 Calcium [Mass/Vol] 8.1 mg/dL 8.6-10.3 [facility] Carbon dioxide, total [Moles /volume] in Serum or PlasmaOrdered By: Niki Weeks on 08-05-2023 CO2 [Moles/Vol] 25.2 mmol/L 21.0-31.0 [facility] Chloride [Moles/volume] in S akila or PlasmaOrdered By: Niki Blades on 08-05-2023 Chloride [Moles/Vol] 111 mmol/L 98-107 [facility] Creatinine [Mass/volume] in Serum or PlasmaOrdered By: Niki Weeks on 08-05-2023 Creatinine [Mass/Vol] 1.43 mg/dL 0.60-1.20 [facility] Eosinophils Auto (Bld) [#/Vo l]Ordered [...] on 08-05-2023 Glucose [Mass/Vol] 121 mg/dL 70-100 [facility] Comment on above: ADA recommended refe [...] MCHC (RBC) [Mass/Vol] 33.5 g/dL 32.0-35.0 [facility] MCV Auto (RBC) [Entitic vol] Ordered By: Niki Blades on 08-05-2023 MCV (RBC) [Entitic vol] 95.1 fL 80-[address] [facility] Monocytes Auto (Bld) [#/Vol] Ordered By: Niki Blades on 08-05-2023 Monocytes (Bld) [#/Vol] 0.7 10*3/uL 0.0-0.8 [facility] Monocytes/100 WBC Auto (Bld) Ordered By: Niki Blades on 08-05-2023 Monocytes/100 WBC (Bld) 9.2 % . F [facility] Neutrophils Auto (Bld) [#/Vo l]Ordered By: Niki Blades on 08-05-2023 Neutrophils (Bld) [#/Vol] 5.6 10*3/uL 1.8-7.7 [facility] Neutrophils/100 WBC Auto (Bl d)Ordered By: Niki Blades on 08-05-2023 Neutrophils/100 WBC (Bld) 77.1 % . [facility] No Panel InformationOrdered By: Niki Rms on [...] on 08-05-2023 Potassium [Moles/Vol] 4.4 mmol/L 3.5-5.1 [facility] RBC Auto (Bld) [#/Vol]Ordere d By: Niki Blades on 08-05-2023 RBC (Bld) [#/Vol] 3.14 10*6/uL 3.60-5.00 [facility] Serum or plasma anion gap de terminationOrdered By: Niki Blades on 08-05-2023 Anion gap [Moles/Vol] 7.2 mmol/L 6.0-15.0 [facility] Sodium [Moles/volume] in Ser um or PlasmaOrdered By: Niki Blades on 08-05-2023 Sodium [Moles/Vol] 139 mmol/L 136-145 [facility] Urea nitrogen [Mass/volume] in Serum or PlasmaOrdered By: Niki Blades on 08-05-2023 Urea nitrogen [Mass/Vol] 25 mg/dL 7-25 [facility] WBC Auto (Bld) [#/Vol]Ordere d By: Niki Blades on 08-05-2023 WBC (Bld) [#/Vol] 7.3 10*3/uL 3.8-11.6 [facility] Activated partial thrombopla stin time (aPTT) in platelet poor plasma by coagulation aOrdered By: Cj Gamboa on 08-03-2023 aPTT Coag (PPP) [Time] 44.3 s 25.1-36.5 [facility] Comment on above: A hematocrit value g reater than 55% may lead to inaccurate results in coagulation testing. Patients having hematocrit values >55% require a special collection tube for coagulation studies. Please contact the laboratory at [phone] for redraw instructions. INR in Platelet poor [...] PT Coag (PPP) [Time] 24.8 s 9.0-12.9 [facility] Comment on above: A hematocrit value g reater than 55% may lead to inaccurate results in coagulation testing. Patients having hematocrit values >55% require a special collection tube for coagulation studies. Please contact the laboratory at [phone] for redraw instructions. Basophils Auto (Bld) [#/Vol] Ordered By: Niki Weeks on 07-20-2023 Basophils (Bld) [#/Vol] 0.0 10*3/uL 0.0-0.2 [facility] Basophils/100 WBC Auto (Bld) Ordered By: Niki Weeks on 07-20-2023 Basophils/100 WBC (Bld) 0.6 % . F [facility] Bilirubin Test strip Ql (U)O rdered By: Niki Blades on 07-20-2023 Bilirubin Ql (U) Negative Negative [facility] Calcium [Mass/volume] in Ser um or PlasmaOrdered By: Niki Blades on 07-20-2023 Calcium [Mass/Vol] 8.6 mg/dL 8.6-10.3 [facility] Carbon dioxide, total [Moles /volume] in Serum or PlasmaOrdered By: Niki Blades on 07-20-2023 CO2 [Moles/Vol] 26.3 mmol/L 21.0-31.0 [facility] Chloride [Moles/volume] in S akila or PlasmaOrdered By: Niki Blades on 07-20-2023 Chloride [Moles/Vol] 109 mmol/L 98-107 [facility] Color Auto (U)Ordered By: Simpson Blades on 07-20-2023 Color (U) Yellow Yellow [facility] Creatinine [Mass/volume] in Serum or PlasmaOrdered By: Niki Blades on 07-20-2023 Creatinine [Mass/Vol] 1.52 mg/dL 0.60-1.20 [facility] Eosinophils Auto (Bld) [#/Vo l]Ordered [...] on 07-20-2023 Glucose [Mass/Vol] 120 mg/dL 70-100 [facility] Comment on above: ADA recommended refe [...] 07-20-2023 Ketones (U) [Mass/Vol] Negative Negative Fi [facility] Leukocytes [#/volume] correc tanesha for nucleated erythrocytes in Blood by Automated counOrdered By: Niki Weeks on 07-20-2023 WBC corrected for nucl RBC Auto (Bld) [#/Vol] 5.2 10*3/uL 3.8-11.6 [facility] Lymphocytes Auto (Bld) [#/Vo l]Ordered By: Niki Weeks on 07-20-2023 Lymphocytes (Bld) [#/Vol] 0.7 10*3/uL 1.00-4.8 [facility] Lymphocytes/100 WBC Auto (Bl d)Ordered By: Niki Weeks on 07-20-2023 Lymphocytes/100 WBC (Bld) 13.8 % . [facility] MCH Auto (RBC) [Entitic mass ]Ordered By: Niki Weeks on 07-20-2023 MCH (RBC) [Entitic mass] 30.9 pg 24.7-34.3 [facility] MCHC Auto (RBC) [Mass/Vol]Or dered By: Niki Weeks on 07-20-2023 MCHC (RBC) [Mass/Vol] 33.0 g/dL 32.0-35.0 [facility] MCV Auto (RBC) [Entitic vol] Ordered By: Niki Weeks on 07-20-2023 MCV (RBC) [Entitic vol] 93.7 fL 80-[address] [facility] Monocytes Auto (Bld) [#/Vol] Ordered By: Niki Weeks on 07-20-2023 Monocytes (Bld) [#/Vol] 0.4 10*3/uL 0.0-0.8 [facility] Monocytes/100 WBC Auto (Bld) Ordered By: Niki Blades on 07-20-2023 Monocytes/100 WBC (Bld) 6.9 % . F [facility] Neutrophils Auto (Bld) [#/Vo l]Ordered By: Niki Blades on 07-20-2023 Neutrophils (Bld) [#/Vol] 3.8 10*3/uL 1.8-7.7 [facility] Neutrophils/100 WBC Auto (Bl d)Ordered By: Niki Blades on 07-20-2023 Neutrophils/100 WBC [...] ld) [Entitic vol]Ordered By: Niki Blades on 07-20-2023 Platelet mean volume (Bld) [Entitic vol] 7.2 fL 6.3-10.7 [facility] Platelets Auto (Bld) [#/Vol] Ordered By: Niki Rms on 07-20-2023 Platelets (Bld) [#/Vol] 194 10*3/uL 150-450 [facility] Potassium [Moles/volume] in Serum or PlasmaOrdered By: Niki mRs on 07-20-2023 Potassium [Moles/Vol] 4.6 mmol/L 3.5-5.1 [facility] Protein Auto test strip (U) [Mass/Vol]Ordered By: Niki Weeks on 07-20-2023 Protein (U) [Mass/Vol] Negative Negative [facility] RBC Auto (Bld) [#/Vol]Ordere d By: Niki Weeks on 07-20-2023 RBC (Bld) [#/Vol] 4.09 10*6/uL 3.60-5.00 [facility] Serum or plasma anion gap de terminationOrdered By: Niki Weeks on 07-20-2023 Anion gap [Moles/Vol] 9.3 mmol/L 6.0-15.0 [facility] Sodium [Moles/volume] in Ser um or PlasmaOrdered By: Niki Weeks on 07-20-2023 Sodium [Moles/Vol] 140 mmol/L 136-145 [facility] Specific gravity Auto test s trip [...] 07-20-2023 WBC (Bld) [#/Vol] 5.2 10*3/uL 3.8-11.6 [facility] pH Auto test strip (U)Ordere d By: Niki Weeks on 07-20-2023 pH (U) 5.5 [pH] 5.0-9.0 [facility] No Panel Informationon 06-16 BLANK _ [facility] Implant Date 05/22/2015 [facility] Model 5076 [employer] [facility] PACEMAKER REMOTE CHECKon AV Delay Adaptive Paced Minimum (ms) 180 ms [facility] AV Delay Adaptive Sensed Minimum (ms) 150 ms [facility] AV Delay Adaptive Status DISABLED [facility] Battery Voltage (volts) 2.94 V [facility] Godfrey RA Pacing Amplitude (volts) 1.5 V [facility] Godfrey RA Pacing Polarity BI [facility] Godfrey RA Pacing Pulse Width (ms) 0.4 ms [facility] Godfrey RA Sensing Amplitude (mvolts) 0.3 mV [facility] Godfrey RA Sensing Blanking Period (ms) 150 ms [facility] Godfrey RA Sensing Polarity BI [facility] Godfrey RA Sensing Refractory Period (ms) Auto [facility] Godfrey RV Pacing Amplitude (volts) 2 V [facility] Godfrey RV Pacing Polarity BI [facility] Godfrey RV Pacing Pulse Width (ms) 0.4 ms [facility] Godfrey RV Sensing Amplitude (mvolts) 0.9 mV [facility] Godfrey RV Sensing Blanking Period (ms) 200 ms [facility] Godfrey RV Sensing Polarity BI [facility] Hysteresis Rate (bpm) DISABLED [facility] Lead1 Jorge KELLER [facility] Lead2 Jorge KELLER [facility] Location RV [facility] Location RA [facility] Lower Rate (bpm) 60 {beats}/min [facility] Max Sensor Rate (bmp) 130 {beats}/min [facility] Model [id number] COBOS [facility] PM-Device Jorge KELLER [facility] PM-Percent Pacing (A) 99.76 % [facility] PM-Percent Pacing (V) 0.11 % [facility] PM-PMT Intervention ENABLED [facility] PM-PVC Intervention ENABLED [facility] PM-Rate Modulation Acceleration Reaction 30 s [facility] PM-Rate Modulation ADL Rate (bpm) 100 {beats}/min [facility] PM-Rate Modulation Deceleration Exercise [facility] PM-Rate Modulation Threshold MediumLow [facility] RA Bipolar Impedance ohms 437 ohm [facility] RA Unipolar Impedance ohms 399 ohm [facility] RV Bipolar Impedance ohms 532 ohm [facility] RV Unipolar Impedance 494 ohm [facility] Serial Number [id number] [facility] Serial Number [id number] [facility] Serial Number [id number] [facility] Thresh RA Capture Amplitude (volts) 0.5 V [facility] Thresh RA Capture Duration (ms) 0.4 ms [facility] Thresh RA Sensing Amplitude (mvolts) 2.25 mV [facility] Thresh RV Capture Amplitude (volts) 0.75 V [facility] Thresh RV Capture Duration (ms) 0.4 ms [facility] Thresh RV Sensing Amplitude (mvolts) 12.875 mV [facility] Tracking Rate (bpm) 130 {beats}/min [facility] Creatinine (Bld) [Mass/Vol]O rdered By: Broderick Howard on 06-04-2023 Creatinine [Mass/Vol] 1.6 mg/dL 0.6-1.3 [facility] Comment on above: ER/ESD physician is notified/shown all ISTAT results.Critical values may be confirmed by laboratory testing ifdeemed necessary by ER attending doctor. No Panel Informationon 02-24 BLANK _ [facility] Implant Date 05/22/2015 [facility] Model 5076 [employer] [facility] PACEMAKER REMOTE CHECKon AV Delay Adaptive Paced Minimum (ms) 180 ms [facility] AV Delay Adaptive Sensed Minimum (ms) 150 ms [facility] AV Delay Adaptive Status DISABLED [facility] Battery Voltage (volts) 2.95 V [facility] Godfrey RA Pacing Amplitude (volts) 1.5 V [facility] Godfrey RA Pacing Polarity BI [facility] Godfrey RA Pacing Pulse Width (ms) 0.4 ms [facility] Godfrey RA Sensing Amplitude (mvolts) 0.3 mV [facility] Godfrey RA Sensing Blanking Period (ms) 150 ms [facility] Godfrey RA Sensing Polarity BI [facility] Godfrey RA Sensing Refractory Period (ms) Auto [facility] Godfrey RV Pacing Amplitude (volts) 2 V [facility] Godfrey RV Pacing Polarity BI [facility] Godfrey RV Pacing Pulse Width (ms) 0.4 ms [facility] Godfrey RV Sensing Amplitude (mvolts) 0.9 mV [facility] Godfrey RV Sensing Blanking Period (ms) 200 ms [facility] Godfrey RV Sensing Polarity BI [facility] Hysteresis Rate (bpm) DISABLED [facility] Lead1 Mfg MDT [facility] Lead2 Mfg MDT [facility] Location RV [facility] Location RA [facility] Lower Rate (bpm) 60 {beats}/min [facility] Max Sensor Rate (bmp) 130 {beats}/min [facility] Model [id number] COBOS [facility] PM-Device Mflizet KELLER [facility] PM-Percent Pacing (A) 99.67 % [facility] PM-Percent Pacing (V) 0.2 % [facility] PM-PMT Intervention ENABLED [facility] PM-PVC Intervention ENABLED [facility] PM-Rate Modulation Acceleration Reaction 30 s [facility] PM-Rate Modulation ADL Rate (bpm) 100 {beats}/min [facility] PM-Rate Modulation Deceleration Exercise [facility] PM-Rate Modulation Threshold MediumLow [facility] RA Bipolar Impedance ohms 418 ohm [facility] RA Unipolar Impedance ohms 380 ohm [facility] RV Bipolar Impedance ohms 532 ohm [facility] RV Unipolar Impedance 494 ohm [facility] Serial Number [id number] [facility] Serial Number [id number] [facility] Serial Number [id number] [facility] Thresh RA Capture Amplitude (volts) 0.5 V [facility] Thresh RA Capture Duration (ms) 0.4 ms [facility] Thresh RA Sensing Amplitude (mvolts) 2.25 mV [facility] Thresh RV Capture Amplitude (volts) 0.875 V [facility] Thresh RV Capture Duration (ms) 0.4 ms [facility] Thresh RV Sensing Amplitude (mvolts) 12.875 mV [facility] Tracking Rate (bpm) 130 {beats}/min [facility] No Panel Informationon 11-26 BLANK _ [facility] Implant Date 05/22/2015 [facility] Model 5076 [employer] [facility] PACEMAKER REMOTE CHECKon AV Delay Adaptive Paced Minimum (ms) 180 ms [facility] AV Delay Adaptive Sensed Minimum (ms) 150 ms [facility] AV Delay Adaptive Status DISABLED [facility] Battery Voltage (volts) 2.96 V [facility] Godfrey RA Pacing Amplitude (volts) 1.5 V [facility] Godfrey RA Pacing Polarity BI [facility] Godfrey RA Pacing Pulse Width (ms) 0.4 ms [facility] Godfrey RA Sensing Amplitude (mvolts) 0.3 mV [facility] Godfrey RA Sensing Blanking Period (ms) 150 ms [facility] Godfrey RA Sensing Polarity BI [facility] Godfrey RA Sensing Refractory Period (ms) Auto [facility] Godfrey RV Pacing Amplitude (volts) 2 V [facility] Godfrey RV Pacing Polarity BI [facility] Godfrey RV Pacing Pulse Width (ms) 0.4 ms [facility] Godfrey RV Sensing Amplitude (mvolts) 0.9 mV [facility] Godfrey RV Sensing Blanking Period (ms) 200 ms [facility] Godfrey RV Sensing Polarity BI [facility] Hysteresis Rate (bpm) DISABLED [facility] Lead1 Mfg MDT [facility] Lead2 Mfg MDT [facility] Location RV [facility] Location RA [facility] Lower Rate (bpm) 60 {beats}/min [facility] Max Sensor Rate (bmp) 130 {beats}/min [facility] Model [id number] COBOS [facility] PM-Device Jorge KELLER [facility] PM-Percent Pacing (A) 99.43 % [facility] PM-Percent Pacing (V) 0.17 % [facility] PM-PMT Intervention ENABLED [facility] PM-PVC Intervention ENABLED [facility] PM-Rate Modulation Acceleration Reaction 30 s [facility] PM-Rate Modulation ADL Rate (bpm) 100 {beats}/min [facility] PM-Rate Modulation Deceleration Exercise [facility] PM-Rate Modulation Threshold MediumLow [facility] RA Bipolar Impedance ohms 437 ohm [facility] RA Unipolar Impedance ohms 399 ohm [facility] RV Bipolar Impedance ohms 532 ohm [facility] RV Unipolar Impedance 494 ohm [facility] Serial Number [id number] [facility] Serial Number [id number] [facility] Serial Number [id number] [facility] Thresh RA Capture Amplitude (volts) 0.5 V [facility] Thresh RA Capture Duration (ms) 0.4 ms [facility] Thresh RA Sensing Amplitude (mvolts) 1.875 mV [facility] Thresh RV Capture Amplitude (volts) 0.75 V [facility] Thresh RV Capture Duration (ms) 0.4 ms [facility] Thresh RV Sensing Amplitude (mvolts) 11.75 mV [facility] Tracking Rate (bpm) 130 {beats}/min [facility] No Panel Informationon 08-26 BLANK _ [facility] Implant Date 05/22/2015 [facility] Model 5076 [employer] [facility] PACEMAKER REMOTE CHECKon AV Delay Adaptive Paced Minimum (ms) 180 ms [facility] AV Delay Adaptive Sensed Minimum (ms) 150 ms [facility] AV Delay Adaptive Status DISABLED [facility] Battery Voltage (volts) 2.96 V [facility] Godfrey RA Pacing Amplitude (volts) 1.5 V [facility] Godfrey RA Pacing Polarity BI [facility] Godfrey RA Pacing Pulse Width (ms) 0.4 ms [facility] Godfrey RA Sensing Amplitude (mvolts) 0.3 mV [facility] Godfrey RA Sensing Blanking Period (ms) 150 ms [facility] Godfrey RA Sensing Polarity BI [facility] Godfrey RA Sensing Refractory Period (ms) Auto [facility] Godfrey RV Pacing Amplitude (volts) 2 V [facility] Godfrey RV Pacing Polarity BI [facility] Godfrey RV Pacing Pulse Width (ms) 0.4 ms [facility] Godfrey RV Sensing Amplitude (mvolts) 0.9 mV [facility] Godfrey RV Sensing Blanking Period (ms) 200 ms [facility] Godfrey RV Sensing Polarity BI [facility] Hysteresis Rate (bpm) DISABLED [facility] Lead1 Jorge KELLER [facility] Lead2 Jorge KELLER [facility] Location RV [facility] Location RA [facility] Lower Rate (bpm) 60 {beats}/min [facility] Max Sensor Rate (bmp) 130 {beats}/min [facility] Model [id number] COBOS [facility] PM-Device Jorge KELLER [facility] PM-Percent Pacing (A) 99.6 % [facility] PM-Percent Pacing (V) 0.24 % [facility] PM-PMT Intervention ENABLED [facility] PM-PVC Intervention ENABLED [facility] PM-Rate Modulation Acceleration Reaction 30 s [facility] PM-Rate Modulation ADL Rate (bpm) 100 {beats}/min [facility] PM-Rate Modulation Deceleration Exercise [facility] PM-Rate Modulation Threshold MediumLow [facility] RA Bipolar Impedance ohms 437 ohm [facility] RA Unipolar Impedance ohms 399 ohm [facility] RV Bipolar Impedance ohms 532 ohm [facility] RV Unipolar Impedance 494 ohm [facility] Serial Number [id number] [facility] Serial Number [id number] [facility] Serial Number [id number] [facility] Thresh RA Capture Amplitude (volts) 0.5 V [facility] Thresh RA Capture Duration (ms) 0.4 ms [facility] Thresh RA Sensing Amplitude (mvolts) 2.5 mV [facility] Thresh RV Capture Amplitude (volts) 0.75 V [facility] Thresh RV Capture Duration (ms) 0.4 ms [facility] RV Sensing Amplitude (mvolts) 12.125 mV [facility] Tracking Rate (bpm) 130 {beats}/min [facility] US KIDNEYS BLADDERon 022 US KIDNEYS BLADDER EXAMINATION: US [facility] BLADDER HISTORY: Chronic kidney disease due to [...] Date: 2022-08-10 19:30 Normal [facility] UA RANDOM W/MICROSCOPICon BACTERIA NONE SEEN Normal NONE SEEN [facility] Comment on above: Performed By: #### U AMIC #### [facility] [address] [place] [address] Dr. Leah Felipe Bilirubin Ql (U) Negative Normal NEGATIVE [facility] Comment on above: Performed By: #### U AMIC #### [facility] [address] [address] [address] Leah Felipe CAST NONE SEEN Normal NONE SEEN [facility] Comment on above: Performed By: #### U AMIC #### [facility] [address] [address] [address] Leah Felipe Clarity (U) CLEAR Normal CLEAR [facility] Comment on above: Performed By: #### U AMIC #### [facility] [address] [address] [address] Leah Felipe Color (U) LT. YELLOW Normal YELLOW [facility] Comment on above: Performed By: #### U AMIC #### [facility] [address] [address] [address] Leah Felipe Crystals LM Nom (Urine sed) NONE SEEN Normal NONE SEEN [facility] Comment on above: Performed By: #### U AMIC #### [facility] [address] [address] [address] Leah Felipe Epithelial cells LM Ql (Urine sed) FEW Abnormal NONE SEEN /RARE [facility] Comment on above: Performed By: #### U AMIC #### [facility] [address] [place] [address] Dr. Leah Feliep Glucose Ql (U) Negative Normal NEGATIVE [facility] Comment on above: Performed By: #### U AMIC #### [facility] [address] [address] [address] Leah Felipe Hemoglobin Ql (U) Negative Normal NEGATIVE [facility] Comment on above: Performed By: #### U AMIC #### [facility] [address] [address] [address] Leah Felipe Ketones Ql (U) Negative Normal NEGATIVE [facility] Comment on above: Performed By: #### U AMIC #### [facility] [address] [address] [address] Leah eFlipe LEUKOCYTES Negative Normal NEGATIVE [facility] Comment on above: Performed By: #### U AMIC #### [facility] [address] [address] [address] Leah Felipe MUCOUS NONE SEEN Normal NONE SEEN [facility] Comment on above: Performed By: #### U AMIC #### [facility] [address] [place] [address] Dr. Leah Felipe Nitrite Ql (U) Negative Normal NEGATIVE [facility] Comment on above: Performed By: #### U AMIC #### [facility] [address] [place] [address] Dr. Leah Felipe pH (U) 6.0 [pH] Normal 5-9 [facility] Comment on above: Performed By: #### U AMIC #### [facility] [address] [place] [address] Dr. Leah Felipe RBC NONE SEEN Abnormal 0-2 [facility] Comment on above: Performed By: #### U AMIC #### [facility] [address] [place] [address] Dr. Leah Felipe SPEC GRAVITY 1.025 Normal 1.005-<=1. 025 [facility] Comment on above: Performed By: #### U AMIC #### [facility] [address] [place] [address] Dr. Leah Felipe UA PROTEIN Negative Normal NEGATIVE/ TRACE [facility] Comment on above: Performed By: #### U AMIC #### [facility] [address] [place] [address] Dr. Leah Felipe Urobilinogen Qn (U) 0.2 {Lin'U}/dL Normal 0.2 - 1. 0 [facility] Comment on above: Performed By: #### U AMIC #### [facility] [address] [place] [address] Dr. Leah Felipe WBC 0-2 Abnormal NONE SEEN [facility] Comment on above: Performed By: #### U AMIC #### [facility] [address] [place] [address] Dr. Leah Felipe URINE T PROTEIN CREAT RATIOo n 08-03-2022 Protein (U) [Mass/Vol] 30.2 mg/dL Critically high <=12.0 [facility] Comment on above: Performed By: #### U RTPCR #### [facility] [address] [place] [address] Dr. Leah Felipe UR PROT CREAT RAT 0.19 Normal [facility] Comment on above: Performed By: #### U RTPCR #### [facility] [address] [place] [address] Dr. Leah Felipe URINE CREAT 159.67 mg/dL Normal 20.00-300. 00 [facility] Comment on above: Performed By: #### U RTPCR #### [facility] [address] [place] [address] Dr. Leah Felipe CBC AUTO DIFFon 07-31-2022 BASO # 0.0 103/ul Normal 0.0-0.1 [facility] Comment on above: Performed By: #### C BC #### [facility] [address] [place] [address] Dr. Leah Felipe Basophils/100 WBC (Bld) 0.6 % Normal 0.2-2.0 [facility] Comment on above: Performed By: #### C BC #### [facility] [address] [place] [address] Dr. Leah Felipe EO # 0.3 103/ul Normal 0.0-0.7 [facility] Comment on above: Performed By: #### C BC #### [facility] [address] [place] [address] Dr. Leah Felipe Eosinophils/100 WBC (Bld) 5.5 % Normal 0.9-7.0 [facility] Comment on above: Performed By: #### C BC #### [facility] [address] [place] [address] Dr. Leah Felipe Erythrocyte distribution width (RBC) [Ratio] 12.5 % Normal 11.0-15.0 [facility] Comment on above: Performed By: #### C BC #### [facility] [address] [place] [address] Dr. Leah Felipe Hematocrit (Bld) [Volume fraction] 39.2 % Normal 36.0-48.0 [facility] Comment on above: Performed By: #### C BC #### [facility] [address] [place] [address] Dr. Leah Felipe Hemoglobin (Bld) [Mass/Vol] 12.5 g/dL Normal 12.0-16.0 [facility] Comment on above: Performed By: #### C BC #### [facility] [address] [place] [address] Dr. Leah Felipe IG # 0.01 10e3/ul Normal 0.00-0.03 [facility] Comment on above: Performed By: #### C BC #### [facility] [address] [place] [address] Dr. Leah Felipe IG % 0.2 % Normal 0.0-0.5 [facility] Comment on above: Performed By: #### C BC #### [facility] [address] [place] [address] Dr. Leah Felipe LYMPH # 0.8 103/ul Critically low 1.2-3.8 [facility] Comment on above: Performed By: #### C BC #### [facility] [address] [place] [address] Dr. Leah Felipe Lymphocytes/100 WBC (Bld) 16.0 % Critically low 20.5-60.0 [facility] Comment on above: Performed By: #### C BC #### [facility] [address] [place] [address] Dr. Leah Felipe MANUAL DIFF REQ NO Normal [facility] Comment on above: Performed By: #### C BC #### [facility] [address] [place] [address] Dr. Leah Felipe MCH (RBC) [Entitic mass] 30.9 pg Normal 26.7-34.0 [facility] Comment on above: Performed By: #### C BC #### [facility] [address] [place] [address] Dr. Leah Felipe MCHC (RBC) [Mass/Vol] 31.9 g/dL Normal 29.9-35.2 [facility] Comment on above: Performed By: #### C BC #### [facility] [id number] Leah Felipe MCV (RBC) [Entitic vol] 97.0 fL Normal 81.0-99.0 [facility] Comment on above: Performed By: #### C BC #### [facility] [address] [place] [address] Dr. Leah Felipe MONO # 0.4 103/ul Normal 0.3-0.8 [facility] Comment on above: Performed By: #### C BC #### [facility] [address] [place] [address] Dr. Leah Felipe Monocytes/100 WBC (Bld) 8.7 % Normal 1.7-12.0 [facility] Comment on above: Performed By: #### C BC #### [facility] [address] [place] [address] Dr. Leah Felipe NEUT # 3.4 103/ul Normal 1.4-6.5 [facility] Comment on above: Performed By: #### C BC #### [facility] [address] [place] [address] Dr. Leah Felipe Neutrophils/100 WBC (Bld) 69.0 % Normal 43.0-75.0 [facility] Comment on above: Performed By: #### C BC #### [facility] [address] [place] [address] Dr. Leah Felipe Platelet mean volume (Bld) [Entitic vol] 9.1 fL Critically low 9.5-13.5 [facility] Comment on above: Performed By: #### C BC #### [facility] [address] [place] [address] Dr. Leah Felipe PLT 196 103/ul Normal 150-450 [facility] Comment on above: Performed By: #### C BC #### [facility] [address] [place] [address] Dr. Leah Felipe RBC 4.04 106/ul Critically low 4.20-5.40 [facility] Comment on above: Performed By: #### C BC #### [facility] [address] [place] [address] Dr. Leah Felipe WBC 5.0 103/ul Normal 4.0-11.0 [facility] Comment on above: Performed By: #### C BC #### [facility] [address] [address] [address] Leah Felipe PROF CHEM 8 (BAS METB)on Anion gap [Moles/Vol] 9.8 mmol/L Normal [facility] Comment on above: Performed By: #### B MP, TSH #### [facility] [address] [place] [address] Dr. Leah Felipe Calcium [Mass/Vol] 8.2 mg/dL Critically low 8.5-10.1 [facility] Comment on above: Performed By: #### B MP, TSH #### [facility] [address] [place] [address] Dr. Leah Felipe Chloride [Moles/Vol] 107 mmol/L Normal 98-107 [facility] Comment on above: Performed By: #### B MP, TSH #### [facility] [address] [place] [address] Dr. Leah Felipe CO2 [Moles/Vol] 26.4 mmol/L Normal 21.0-32.0 [facility] Comment on above: Performed By: #### B MP, TSH #### [facility] [address] [place] [address] Dr. Leah Felipe Creatinine [Mass/Vol] 1.53 mg/dL Critically high 0.55-1.02 [facility] Comment on above: Performed By: #### B MP, TSH #### [facility] [address] [place] [address] Dr. Leah Felipe EGFR-AF ESTONIAN 40 mL/min/1.73m2 Critically low >=60 [facility] Comment on above: Performed By: #### B MP, TSH #### [facility] [address] [place] [address] Dr. Leah Felipe EGFR-NON AF ESTONIAN 33 mL/min/1.73m2 Critically low >=60 [facility] Comment on above: Performed By: #### B MP, TSH #### [facility] [address] [address] [address] Leah Felipe Glucose [Mass/Vol] 108 mg/dL Critically high 74-106 [facility] Comment on above: Performed By: #### B MP, TSH #### [facility] [address] [address] [address] Leah Felipe Potassium [Moles/Vol] 4.2 mmol/L Normal 3.5-5.1 [facility] Comment on above: Performed By: #### B MP, TSH #### [facility] [address] [place] [address] Dr. Leah Felipe Sodium [Moles/Vol] 139 mmol/L Normal 136-145 [facility] Comment on above: Performed By: #### B MP, TSH #### [facility] [address] [place] [address] Dr. Leah Felipe Urea nitrogen [Mass/Vol] 26.0 mg/dL Critically high 7.0-18.0 [facility] Comment on above: Performed By: #### B MP, TSH #### [facility] [address] [place] [address] Dr. Leah Felipe Urea nitrogen/Creatinine [Mass ratio] 17.0 mg/mg Normal [facility] Comment on above: Performed By: #### B MP, TSH #### [facility] [address] [place] [address] Dr. Leah Felipe TSHon 07-31-2022 TSH 1.650 uIU/mL Normal 0.358-3.74 0 [facility] Comment on above: Performed By: #### B MP, TSH #### [facility] [address] [place] [address] Dr. Leah Felipe VITAMIN B12on 07-31-2022 Cobalamin (Vitamin B12) [Mass/Vol] 378.0 pg/mL Normal 193.0-986. 0 [facility] Comment on above: Performed By: #### V ITB12 #### [facility] [address] [place] [address] Dr. Leah Felipe MG MAMM SCREEN 3D FAVIOLA CADon 07-29-2022 MG MAMM SCREEN 3D FAVIOLA CAD Patient: CASSI RODRIGEZ Exam Date: 07/29/2022 : 1950 Gender:F Ordering : DR BRODERICK HOWARD D.O. Admission #: [id number] Family : Order #: [id number] CLICK HERE TO VIEW EXAM RADIOLOGY REPORT [...] at age 64. LOCATION: [facility] BREAST COMPOSITION: Heterogeneously dense,which may obscure [...] 07/29/2022 at 11:19 Normal [facility] CBC panel Auto (Bld)on 07-23 Erythrocyte distribution width (RBC) [Ratio] 12.5 % Normal 11.5-15.0 [facility] Comment on above: Order Comment: Warren almazan Type: BLOOD SPECIMEN Ordering Facility: [facility] Address: [address] [place] [id number] Performed By: #### 5 8410-2 #### [facility] CLIA [id number] [facility] [place] [address] [place] Hematocrit (Bld) [Volume fraction] 39.3 % Normal 36.0-46.0 [facility] Comment on above: Order Comment: Warren almazan Type: BLOOD SPECIMEN Ordering Facility: [facility] Address: [address] [place], [place] [address] Performed By: #### 5 8410-2 #### [facility] [place] [id number] [facility] Hemoglobin (Bld) [Mass/Vol] 12.5 g/dL Normal 11.5-15.5 [facility] Comment on above: Order Comment: Speci men Type: BLOOD SPECIMEN Ordering Facility: [facility] Address: [address] [place], [place] [address] Performed By: #### 5 8410-2 #### [facility] [place] [id number] [address] [place] [address] [place] MCH (RBC) [Entitic mass] 31.3 pg Normal 26.0-34.0 [facility] Comment on above: Order Comment: Speci men Type: BLOOD SPECIMEN Ordering Facility: [facility] Address: [address] [place], [place] [address] Performed By: #### 5 8410-2 #### [facility] [place] [id number] [place] [address] [place] MCHC (RBC) [Mass/Vol] 31.8 g/dL Normal 30.5-36.0 [facility] Comment on above: Order Comment: Speci men Type: BLOOD SPECIMEN Ordering Facility: [facility] Address: [address] [place], [place] [address] Performed By: #### 5 8410-2 #### [facility] [place] [id number] [place] MCV (RBC) [Entitic vol] 98.5 fL Normal 80.0-100.0 [facility] Comment on above: Order Comment: Speci men Type: BLOOD SPECIMEN Ordering Facility: [facility] Address: [address] [place], [place] [address] Performed By: #### 5 8410-2 #### [facility] [place] [id number] [address] [place] [address] [place] Nucleated RBC (Bld) [#/Vol] 10*3/uL Normal <0.01 [facility] Comment on above: Order Comment: Speci men Type: BLOOD SPECIMEN Ordering Facility: [facility] Address: [address] [place] [address] Performed By: #### 5 8410-2 #### [facility] CLIA [id number] [address] [place] [address] [place] Platelet mean volume (Bld) [Entitic vol] 9.5 fL Normal 9.0-12.7 [facility] Comment on above: Order Comment: Speci men Type: BLOOD SPECIMEN Ordering Facility: [facility] Address: [address] [place] [address] Performed By: #### 5 8410-2 #### [facility] CLIA [id number] [place] [address] [place] Platelets (Bld) [#/Vol] 214 10*3/uL Normal 150-400 [facility] Comment on above: Order Comment: Speci men Type: BLOOD SPECIMEN Ordering Facility: [facility] Address: [address] [place] [address] Performed By: #### 5 8410-2 #### [facility] CLIA [id number] [address] [place] [address] [place] RBC (Bld) [#/Vol] 3.99 10*6/uL Normal 3.90-5.20 [facility] Comment on above: Order Comment: Speci men Type: BLOOD SPECIMEN Ordering Facility: [facility] Address: [address] [place], [place] [address] Performed By: #### 5 8410-2 #### [facility] CLIA [id number] [address] [place] [address] [place] WBC (Bld) [#/Vol] 5.85 10*3/uL Normal 3.70-11.00 [facility] Comment on above: Order Comment: Speci men Type: BLOOD SPECIMEN Ordering Facility: [facility] Address: [address] [place] [address] Performed By: #### 5 8410-2 #### [facility] CLIA [id number] [address] [place] [address] [facility] [place] Erythrocyte distribution width (RBC) [Ratio] 12.5 % 11.5 - 15.0 % [facility] Hematocrit (Bld) [Volume fraction] 39.3 % 36.0 - 46.0 % [facility] Hemoglobin (Bld) [Mass/Vol] 12.5 g/dL 11.5 - 15.5 g/dL [facility] MCH (RBC) [Entitic mass] 31.3 pg 26.0 - 34.0 pg [facility] MCHC (RBC) [Mass/Vol] 31.8 g/dL 30.5 - 36.0 g/dL [facility] MCV (RBC) [Entitic vol] 98.5 fL 80.0 - 100.0 fL [facility] Nucleated RBC (Bld) [#/Vol] <0.01 k/uL [facility] Platelet mean volume (Bld) [Entitic vol] 9.5 fL 9.0 - 12.7 fL [facility] Platelets (Bld) [#/Vol] 214 10*3/uL 150 - 400 k/uL [facility] RBC (Bld) [#/Vol] 3.99 10*6/uL 3.90 - 5.20 m/uL [facility] WBC (Bld) [#/Vol] 5.85 10*3/uL 3.70 - 11.00 k/uL [facility] TSH BLDon 07-23-2022 TSH Qn 1.890 m[IU]/L 0.270 - 4.200 mIU/L [facility] TSH SerPl-aCncon 07-23-2022 TSH Qn 1.890 m[IU]/L Normal 0.270-4.20 0 [facility] Comment on above: Order Comment: Speci men Type: BLOOD SPECIMEN Ordering Facility: [facility] Address: [address] [facility] [facility] [place] [address] Performed By: #### 3 016-3 #### [facility] CLIA [id number] [address] [place] [address] [place] Vital Signs Date Time Vital Sign Value Performing Clinician Facility 08-15-2025 09:41-0400 Body height 157.48 cm Broderick Ball DO Work Phone: [facility] 08-15-2025 09:41-0400 Body mass index (BMI) [Ratio] 33.5 kg/m2 Broderick Ball DO Work Phone: [facility] 08-15-2025 09:41-0400 Body temperature 96.5 [degF] Broderick Ball DO Work Phone: [facility] 08-15-2025 09:41-0400 Body weight 83.23 kg Broderick Ball DO Work Phone: [facility] 08-15-2025 09:41-0400 Diastolic blood pressure 71 mm[Hg] Broderick Ball DO Work Phone: [facility] 08-15-2025 09:41-0400 Heart rate 75 /min Broderick Ball DO Work Phone: [facility] 08-15-2025 09:41-0400 Respiratory rate 18 /min Broderick Ball DO Work Phone: [facility] 08-15-2025 09:41-0400 SaO2% (BldA) [Mass fraction] 98 % Broderick Ball DO Work Phone: [facility] 08-15-2025 09:41-0400 Systolic blood pressure 113 mm[Hg] Broderick Ball DO Work Phone: [facility] 08-01-2025 07:23-0400 Body height 157.48 cm Broderick Ball DO Work Phone: [facility] 08-01-2025 07:23-0400 Body weight 86.18 kg Broderick Ball DO Work Phone: [facility] 07-18-2025 09:45-0400 Body height 157.5 cm Randa Reilly MD Work Phone: [facility] 07-18-2025 09:45-0400 Body mass index (BMI) [Ratio] 35.12 kg/m2 Randa Reilly MD Work Phone: [facility] 07-18-2025 09:45-0400 Body weight 87.1 kg Randa Reilly MD Work Phone: [facility] 07-18-2025 09:45-0400 Diastolic blood pressure 74 mm[Hg] Randa Reilly MD Work Phone: [facility] 07-18-2025 09:45-0400 Heart rate 82 /min Randa Reilly MD Work Phone: [facility] 07-18-2025 09:45-0400 Systolic blood pressure 124 mm[Hg] Randa Reilly MD Work Phone: [facility] 07-02-2025 14:58-0400 Body height 157.48 cm [...] mass index (BMI) [Ratio] 35.19 kg/m2 Elian Jones DO Work Phone: [facility] 05-21-2025 08:03-0400 Body weight 87.27 kg Elian Do DO Work Phone: [facility] 05-21-2025 08:03-0400 Diastolic blood pressure 60 mm[Hg] Elian Doher DO Work Phone: [facility] 05-21-2025 08:03-0400 Systolic blood pressure 123 mm[Hg] Elian Doher DO Work Phone: [facility] 04-10-2025 11:10-0400 Body height 157.5 cm Randa Reilly MD Work Phone: [facility] 04-10-2025 11:10-0400 Body mass index (BMI) [Ratio] 34.52 kg/m2 Randa Reilly MD Work Phone: [facility] 04-10-2025 11:10-0400 Body weight 85.6 kg Randa Reilly MD Work Phone: [facility] 04-10-2025 11:10-0400 Diastolic blood pressure 72 mm[Hg] Randa Reilly MD Work Phone: [facility] 04-10-2025 11:10-0400 Heart rate 86 /min Randa Reilly MD Work Phone: [facility] 04-10-2025 11:10-0400 Systolic blood pressure 109 mm[Hg] Randa Reilly MD Work Phone: [facility] 02-22-2025 10:40-0400 Body height 157.48 cm [...] 01-05-2025 11:51-0500 Body height 157.5 cm Svitlana Poulton [employer] Work Phone: [facility] 01-05-2025 11:51-0500 Body mass index (BMI) [Ratio] 34.96 kg/m2 Svitlana Poulton [employer] PROCESSING SUPERVISOR.DEAD[employer] Work Phone: [facility] 01-05-2025 11:51-0500 Body weight 86.7 kg Svitlana Pouljerrell EGG PROCESSING SUPERVISOR.DEADENER Work Phone: [facility] 01-05-2025 11:51-0500 Diastolic blood pressure 61 mm[Hg] Svitlana Poulton EGG PROCESSING SUPERVISOR.DEADENER Work Phone: [facility] 01-05-2025 11:51-0500 Heart rate 86 /min Svitlana Pouljerrell EGG PROCESSING SUPERVISOR.DEADENER Work Phone: [facility] 01-05-2025 11:51-0500 Systolic blood pressure 127 mm[Hg] Svitlana Pouljerrell EGG PROCESSING SUPERVISOR.DEADENER Work Phone: [facility] 01-04-2025 13:55-0500 Body height 157.5 cm Alejandro Villar MD, PhD Work Phone: [facility] 01-04-2025 13:55-0500 Body mass index (BMI) [Ratio] 35.08 kg/m2 Alejandro Villar MD, PhD Work Phone: [facility] 01-04-2025 13:55-0500 Body weight 87 kg Alejandro Villar MD, PhD Work Phone: [facility] 01-04-2025 13:55-0500 Diastolic blood pressure 61 mm[Hg] Alejandro Villar MD, PhD Work Phone: [facility] 01-04-2025 13:55-0500 Heart rate 86 /min Alejandro Villar MD, PhD Work Phone: [facility] 01-04-2025 13:55-0500 Systolic blood pressure 127 mm[Hg] Alejandro Villar MD, PhD Work Phone: [facility] 12-08-2024 10:08-0500 Body height 157.48 cm Brdoerick Ball DO Work Phone: [facility] [place] 11-24-2024 11:16-0500 Body height 157.48 cm [facility] 11-24-2024 11:16-0500 Body mass index (BMI) [Ratio] 34.2 kg/m2 [facility] 11-24-2024 11:16-0500 Body weight 84.82 kg [facility] 11-24-2024 11:16-0500 Diastolic blood pressure 75 mm[Hg] [facility] 11-24-2024 11:16-0500 Heart rate 82 /min [facility] 11-24-2024 11:16-0500 Respiratory rate 12 /min [facility] 11-24-2024 11:16-0500 Systolic blood pressure 133 mm[Hg] [facility] 11-17-2024 13:45-0500 Body height 157.48 cm [facility] 11-17-2024 13:45-0500 Body mass index (BMI) [Ratio] 34.4 kg/m2 [facility] 11-17-2024 13:45-0500 Body weight 85.5 kg [facility] 11-17-2024 13:45-0500 Diastolic blood pressure 76 mm[Hg] [facility] 11-17-2024 13:45-0500 Heart rate 68 /min [facility] 11-17-2024 13:45-0500 Respiratory rate 12 /min [facility] 11-17-2024 13:45-0500 Systolic blood pressure 129 mm[Hg] [facility] 11-03-2024 15:00-0500 Hourly Rounding Shashi De Souza [facility] 11-03-2024 15:00-0500 Promise to Return Shashi Ajayw [facility] 11-03-2024 14:00-0500 Hourly Rounding Shashi Rhiew [facility] 11-03-2024 14:00-0500 Promise to Return Shashi Rhiew [facility] 11-03-2024 13:30-0500 Hourly Rounding Shashi Rhiew [facility] 11-03-2024 13:00-0500 Promise to Return Shashi Rhiew [facility] 11-03-2024 11:27-0500 Heart rate 58 /min Shashi Rhiew [facility] 11-03-2024 11:27-0500 SaO2% (BldA) [Mass fraction] 95 % Shashi Rhiew [facility] 11-03-2024 11:27-0500 Respiratory rate 16 /min Shashi Rhiew [facility] 11-03-2024 11:27-0500 Diastolic blood pressure 68 mm[Hg] Shashi Rhiew [facility] 11-03-2024 11:27-0500 Mean blood pressure 83 mm[Hg] Shashi Rhiew [facility] 11-03-2024 11:27-0500 Systolic blood pressure 113 mm[Hg] Shashi Rhiew [facility] 11-03-2024 11:27-0500 Body temperature 97.52 [degF] Shashi Rhiew [facility] 11-03-2024 07:43-0500 Heart rate 60 /min Shashi Rhiew [facility] 11-03-2024 07:43-0500 SaO2% (BldA) [Mass fraction] 96 % Shashi Rhiew [facility] 11-03-2024 07:43-0500 Respiratory rate 16 /min Shashi Rhiew [facility] 11-03-2024 07:42-0500 Body temperature 97.52 [degF] Shashi Rhiew [facility] 11-03-2024 07:42-0500 Diastolic blood pressure 70 mm[Hg] Shashi Rhiew [facility] 11-03-2024 07:42-0500 Mean blood pressure 94 mm[Hg] Shashi Rhiew [facility] 11-03-2024 07:42-0500 Systolic blood pressure 141 mm[Hg] Shashi Rhiew [facility] 11-03-2024 04:31-0500 Heart rate 59 /min Shashi Rhiew [facility] 11-03-2024 04:31-0500 SaO2% (BldA) [Mass fraction] 96 % Shashi Rhiew [facility] 11-03-2024 04:31-0500 Respiratory rate 17 /min Shashi Rhiew [facility] 11-03-2024 04:30-0500 Blood Pressure Location Shashi Rhiew [facility] 11-03-2024 04:30-0500 Diastolic blood pressure 78 mm[Hg] Shashi Rhiew [facility] 11-03-2024 04:30-0500 Mean blood pressure 99 mm[Hg] Shashi Rhiew [facility] 11-03-2024 04:30-0500 Systolic blood pressure 141 mm[Hg] Shashi Rhiew [facility] 11-03-2024 00:58-0500 Body temperature 97.52 [degF] Shashi Rhiew [facility] 11-02-2024 16:45-0500 Respiratory rate 9 /min Shashi Rhiew [facility] 11-02-2024 16:20-0500 Blood Pressure Location Shashi Rhiew [facility] 11-02-2024 16:20-0500 Mean blood pressure 91 mm[Hg] Shashi Rhiew [facility] 11-02-2024 16:20-0500 Respiratory rate 11 /min Shashi Rhiew [facility] 11-02-2024 16:05-0500 Blood Pressure Location Shashi Rhiew [facility] 11-02-2024 16:05-0500 Mean blood pressure 90 mm[Hg] Shashi Rhiew [facility] 11-02-2024 16:05-0500 Respiratory rate 13 /min Shashi Rhiew [facility] 10-27-2024 09:00-0500 Body height 157.48 cm [facility] 10-27-2024 09:00-0500 Body mass index (BMI) [Ratio] 35.2 kg/m2 [facility] 10-27-2024 09:00-0500 Body weight 87.31 kg [facility] 10-27-2024 09:00-0500 Diastolic blood pressure 81 mm[Hg] [facility] 10-27-2024 09:00-0500 Heart rate 69 /min [facility] 10-27-2024 09:00-0500 Respiratory rate 12 /min [facility] 10-27-2024 09:00-0500 Systolic blood pressure 137 [...] 157.5 cm Randa Reilly MD Work Phone: [facility] 09-05-2024 13:06-0400 Body mass index (BMI) [Ratio] 35.93 kg/m2 Randa Reilly MD Work Phone: [facility] 09-05-2024 13:06-0400 Body weight 89.1 kg Randa Reilly MD Work Phone: [facility] 09-05-2024 13:06-0400 Diastolic blood pressure 78 mm[Hg] Randa Rielly MD Work Phone: [facility] 09-05-2024 13:06-0400 Heart rate 84 /min Randa Reilly MD Work Phone: [facility] 09-05-2024 13:06-0400 Systolic blood pressure 133 mm[Hg] Randa Reilly MD Work Phone: [facility] 08-31-2024 09:54-0400 Body height 157.5 cm Kitty Millard MD Work Phone: [facility] 08-31-2024 09:54-0400 Body mass index (BMI) [Ratio] 35.48 kg/m2 Kitty Millard MD Work Phone: [facility] 08-31-2024 09:54-0400 Body weight 88 kg Kitty Millard MD Work Phone: [facility] 08-31-2024 09:54-0400 Diastolic blood pressure 72 mm[Hg] Kitty Millard MD Work Phone: [facility] 08-31-2024 09:54-0400 Heart rate 81 /min Kitty Millard MD Work Phone: [facility] 08-31-2024 09:54-0400 Systolic blood pressure 134 mm[Hg] Kitty Millard MD Work Phone: [facility] 08-30-2024 15:27-0400 Body height 157.48 cm [...] cm Alejandro Villar MD, PhD Work Phone: [facility] 06-29-2024 13:05-0400 Body mass index (BMI) [Ratio] 34.44 kg/m2 Alejandro Villar MD, PhD Work Phone: [facility] 06-29-2024 13:05-0400 Body weight 85.4 kg Alejandro Villar MD, PhD Work Phone: [facility] 06-29-2024 13:05-0400 Diastolic blood pressure 72 mm[Hg] Alejandro Villar MD, PhD Work Phone: [facility] 06-29-2024 13:05-0400 Heart rate 85 /min Alejandro Villar MD, PhD Work Phone: [facility] 06-29-2024 13:05-0400 Systolic blood pressure 133 mm[Hg] Alejandro Villar MD, PhD Work Phone: [facility] 06-27-2024 14:010400 Body height 157.48 cm DO Broderick Ball Work Phone: [facility] 06-27-2024 14:01-0400 Body mass index (BMI) [Ratio] 34.2 kg/m2 DO Broderick Ball Work Phone: [facility] 06-27-2024 14:010400 Body weight 84.82 kg DO Broderick Ball Work Phone: [facility] 06-27-2024 14:010400 Diastolic blood pressure 74 mm[Hg] DO Broderick [...] [place] 05-23-2024 11:23-0400 Body height 157.5 cm Radna Reilly MD Work Phone: [facility] 05-23-2024 11:23-0400 Body mass index (BMI) [Ratio] 34.55 kg/m2 Randa Reilly MD Work Phone: [facility] 05-23-2024 11:23-0400 Body weight 85.68 kg Randa Reilly MD Work Phone: [facility] 05-23-2024 11:23-0400 Diastolic blood pressure 72 mm[Hg] Randa Reilly MD Work Phone: [facility] 05-23-2024 11:23-0400 Heart rate 85 /min Randa Reilly MD Work Phone: [facility] 05-23-2024 11:23-0400 Systolic blood pressure 133 mm[Hg] Randa Reilly MD Work Phone: [facility] 04-21-2024 10:00-0400 Body height 157.48 cm [...] 157.5 cm Randa Reilly MD Work Phone: [facility] 03-07-2024 08:53-0400 Body mass index (BMI) [Ratio] 34.06 kg/m2 Randa Reilly MD Work Phone: [facility] 03-07-2024 08:53-0400 Body weight 84.46 kg Randa Reilly MD Work Phone: [facility] 03-07-2024 08:53-0400 Diastolic blood pressure 72 mm[Hg] Randa Reilly MD Work Phone: [facility] 03-07-2024 08:53-0400 Heart rate 85 /min Randa Reilly MD Work Phone: [facility] 03-07-2024 08:53-0400 Systolic blood pressure 133 mm[Hg] Randa Reilly MD Work Phone: [facility] 02-09-2024 14:58-0400 Body height 161.29 cm [facility] 02-09-2024 14:58-0400 Body mass index (BMI) [Ratio] 33.5 kg/m2 [facility] 02-09-2024 14:58-0400 Body weight 87.08 kg [facility] 02-09-2024 14:58-0400 Diastolic blood pressure 71 mm[Hg] [facility] 02-09-2024 14:58-0400 Heart rate 78 /min [facility] 02-09-2024 14:58-0400 Respiratory rate 12 /min [facility] 02-09-2024 14:58-0400 Systolic blood pressure 114 mm[Hg] [facility] 12-23-2023 09:02-0500 Body height 157.5 cm Alejandro Villar MD, PhD Work Phone: [facility] 12-23-2023 09:02-0500 Body temperature 97.59 [degF] Alejandro Villar MD, PhD Work Phone: [facility] 12-23-2023 09:02-0500 Body weight 86.64 kg Alejandro Villar MD, PhD Work Phone: [facility] 12-23-2023 09:02-0500 Diastolic blood pressure 72 mm[Hg] Alejandro Villar MD, PhD Work Phone: [facility] 12-23-2023 09:02-0500 Heart rate 85 /min Alejandro Villar MD, PhD Work Phone: [facility] 12-23-2023 09:02-0500 SaO2% (BldA) [Mass fraction] 100 % Alejandro Villar MD, PhD Work Phone: [facility] 12-23-2023 09:02-0500 Systolic blood pressure 133 mm[Hg] Alejandro Villar MD, PhD Work Phone: [facility] 09-08-2023 14:50-0400 Body height 157.5 cm Mirian Bell [employer]ESS[employer]PER[employer] Work Phone: [facility] 09-08-2023 14:50-0400 Body weight 86.5 kg Mirian Bell EGG PROCESSING SUPERVISOR.DEADENER Work Phone: [facility] 09-08-2023 14:50-0400 Diastolic blood pressure 64 mm[Hg] Mirian Bell EGG PROCESSING SUPERVISOR.DEADENER Work Phone: [facility] 09-08-2023 14:50-0400 Heart rate 62 /min Mirian Bell EGG PROCESSING SUPERVISOR.DEADENER Work Phone: [facility] 09-08-2023 14:50-0400 Systolic blood pressure 130 mm[Hg] Mirian Bell EGG PROCESSING SUPERVISOR.DEADENER Work Phone: [facility] 08-25-2023 10:20-0400 Body height 161.29 cm [employer] Other [employer] Other 08-25-2023 10:20-0400 Body mass index (BMI) [Ratio] 34.35 kg/m2 Niki Blades Other [employer] Other 08-25-2023 10:20-0400 Body weight 89.36 kg Niki Blades Other [employer] Other 08-16-2023 10:00-0400 Body height 161.29 cm Niki Blades Other [employer] Other 08-16-2023 10:00-0400 Body mass index (BMI) [Ratio] 34.35 kg/m2 Niki Blades Other [employer] Other 08-16-2023 10:00-0400 Body weight 89.36 kg Niki Blades Other [facility] [employer] Other 08-05-2023 07:21-0400 Body temperature 97.8 [degF] [...] 3 L/min DO Broderick Ball Work Phone: [facility] 08-03-2023 07:02-0400 Body height 157.48 cm DO Broderick Ball Work Phone: [facility] 08-03-2023 07:02-0400 Body mass index (BMI) [Ratio] 35 kg/m2 DO Broderick Ball Work Phone: [facility] 07-07-2023 14:20-0400 Body height 161.29 cm Niki Blades Other [employer] [facility] [employer] Other 07-07-2023 14:20-0400 Body mass index (BMI) [Ratio] 33.65 kg/m2 Niki Blades Other [employer] Other 07-07-2023 14:20-0400 Body weight 87.54 kg Niki Blades Other [employer] Other 07-07-2023 14:20-0400 Diastolic blood pressure 80 mm[Hg] Nkii Blades Other [employer] Other 07-07-2023 14:20-0400 Systolic blood pressure 142 mm[Hg] Niki Blades Other [employer] Other 06-04-2023 08:42-0400 Body height 162.56 cm DO Broderick Ball Work Phone: [facility] 06-04-2023 08:42-0400 Body weight 87.08 kg DO Broderick Ball Work Phone: [facility] 05-06-2023 14:30-0400 Body height 161.29 cm Bertram Sanders Other [employer] Other 05-06-2023 14:30-0400 Body mass index (BMI) [Ratio] 33.3 kg/m2 Bertram Ditty Other [employer] Other 05-06-2023 14:30-0400 Body weight 86.64 kg Bertram Sanders Other [employer] Other 05-06-2023 14:30-0400 Diastolic blood pressure 70 mm[Hg] Bertram Sanders Other [employer] Other 05-06-2023 14:30-0400 Systolic blood pressure 125 mm[Hg] Bertram Sanders Other [employer] Other 05-03-2023 14:30-0400 Body height 161.29 cm Broderick Ball Other [employer] Other 05-03-2023 14:30-0400 Body mass index (BMI) [Ratio] 33.16 kg/m2 Broderick Ball Other [employer] Other 05-03-2023 14:30-0400 Body weight 86.27 kg Broderick Ball Other [employer] Other 05-03-2023 14:30-0400 Diastolic blood pressure 71 mm[Hg] Broderick Ball Other [employer] Other 05-03-2023 14:30-0400 Respiratory rate 12 /min Broderick Ball Other [employer] Other 05-03-2023 14:30-0400 Systolic blood pressure 120 mm[Hg] Broderick Ball Other [employer] Other 03-25-2023 11:00-0400 Body height 161.29 cm Broderick Ball Other [employer] Other 03-25-2023 11:00-0400 Body mass index (BMI) [Ratio] 33.61 kg/m2 Broderick Ball Other [employer] Other 03-25-2023 11:00-0400 Body weight 87.45 kg Broderick Ball Other [employer] Other 03-25-2023 11:00-0400 Diastolic blood pressure 78 mm[Hg] Broderick Ball Other [employer] Other 03-25-2023 11:00-0400 Respiratory rate 12 /min Broderick Ball Other [employer] Other 03-25-2023 11:00-0400 Systolic blood pressure 135 mm[Hg] Broderick Ball Other [employer] Other 01-07-2023 14:15-0500 Body height 161.29 cm Bertram Sanders Other [employer] Other 01-07-2023 14:15-0500 Body mass index (BMI) [Ratio] 32.25 kg/m2 Bertram Sanders Other [employer] Other 01-07-2023 14:15-0500 Body weight 83.92 kg Bertram Sanders Other [employer] Other 01-07-2023 14:15-0500 Diastolic blood pressure 85 mm[Hg] Bertram Shannony Other [employer] Other 01-07-2023 14:15-0500 Systolic blood pressure 155 mm[Hg] Bertram Shannony Other [employer] Other 11-25-2022 11:00-0500 Body height 161.29 cm Broderick Ball Other [employer] Other 11-25-2022 11:00-0500 Body mass index (BMI) [Ratio] 32.25 kg/m2 Broderick Ball Other [employer] Other 11-25-2022 11:00-0500 Body weight 83.92 kg Broderick Ball Other [employer] Other 11-25-2022 11:00-0500 Diastolic blood pressure 78 mm[Hg] Broderick Ball Other [employer] Other 11-25-2022 11:00-0500 Respiratory rate 12 /min Broderick Ball Other [employer] Other 11-25-2022 11:00-0500 Systolic blood pressure 118 mm[Hg] Broderick Ball Other [employer] Other 09-10-2022 13:48-0400 Body height 157.5 cm Alejandro Villar MD, PhD Work Phone: [facility] 09-10-2022 13:48-0400 Body weight 88.27 kg Alejandro Villar MD, PhD Work Phone: [facility] 09-10-2022 13:48-0400 Diastolic blood pressure 86 mm[Hg] Alejandro Villar MD, PhD Work Phone: [facility] 09-10-2022 13:48-0400 Heart rate 76 /min Alejandro Villar MD, PhD Work Phone: [facility] 09-10-2022 13:48-0400 Systolic blood pressure 148 mm[Hg] Alejandro Villar MD, PhD Work Phone: [facility] 07-23-2022 10:09-0400 Body height 160 cm Kitty Millard MD Work Phone: [facility] 07-23-2022 10:09-0400 Body weight 88 kg Kitty Millard MD Work Phone: [facility] 07-23-2022 10:09-0400 Diastolic blood pressure 66 mm[Hg] Kitty Millard MD Work Phone: [facility] 07-23-2022 10:09-0400 Heart rate 63 /min Kitty Millard MD Work Phone: [facility] 07-23-2022 10:09-0400 Systolic blood pressure 136 mm[Hg] Kitty Millard MD Work Phone: [facility] 01-06-2022 11:30-0500 Body height 161.29 cm Bertram Sanders Other [employer] Other 01-06-2022 11:30-0500 Body mass index (BMI) [Ratio] 30.68 kg/m2 Bertram Sanders Other [employer] Other 01-06-2022 11:30-0500 Body weight 79.83 kg Bertram Sanders Other [employer] Other Encounters Encounter Date Encounter Type Care Provider Facility Start: 08-15-2025 End: 08-15-2025 ambulatory Broderick Ball DO Work Phone: [facility] Work Phone: Start: 08-15-2025 End: 08-15-2025 Patient encounter procedure Katina Ordoñez MD -[facility] Work Phone: Start: 08-06-2025 Non-patient / Non-visit Katina Ordoñez MD -[facility] Work Phone: Start: 08-01-2025 End: 08-01-2025 Patient encounter procedure Tiana Brush DRUM PULLER-C -[facility] [place] Work Phone: Start: 08-01-2025 End: 08-01-2025 ambulatory Broderick Howard DO Work Phone: [facility] Work Phone: Start: 07-23-2025 End: 07-23-2025 ambulatory Tiana Brush Facility:[facility] Start: 07-23-2025 [facility] Start: 07-18-2025 End: 07-18-2025 Patient encounter procedure Randa Reilly MD Work Phone: Neurology Comment on above: Intractable 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 aura and without status migrainosus (Primary Dx) Start: 07-18-2025 End: 07-18-2025 ambulatory RANDA REILLY Facility:[facility] Start: 07-02-2025 End: 07-02-2025 ambulatory Broderick Howard DO Work Phone: [facility] Work Phone: Start: 07-02-2025 End: 07-02-2025 Patient encounter procedure Broderick Lee DO -[facility] Work Phone: Start: 05-21-2025 End: 05-21-2025 Office outpatient new 45 minutes Elian Jones DO Work Phone: Neurology Comment on above: Chronic pain syndrom e (Primary Dx); MCI (mild cognitive impairment); Sinus node dysfunction (HCC); Obesity, Class II, BMI 35-39.9 Start: 05-21-2025 End: 05-21-2025 ambulatory ELIAN JONES Facility:[facility] Start: 04-10-2025 End: 04-10-2025 Patient encounter procedure Randa Reilly MD Work Phone: Neurology Comment on above: Intractable 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 aura and without status migrainosus (Primary Dx) Start: 04-10-2025 End: 04-10-2025 ambulatory RANDA REILLY Facility:[facility] Start: 02-22-2025 End: 02-22-2025 ambulatory Broderick Howard DO Work Phone: [facility] Work Phone: Start: 02-22-2025 End: 02-22-2025 Patient encounter procedure Broderick Howard DO Work Phone: [facility] Work Phone: Start: 02-21-2025 End: 02-21-2025 ambulatory Broderick Howard DO Work Phone: [facility] Work Phone: Start: 02-21-2025 End: 02-21-2025 Patient encounter procedure Broderick Howard DO Work Phone: [facility] Work Phone: Start: 02-12-2025 Non-patient / Non-visit Iesha Howard DO Work Phone: [facility] Phys[facility] Work Phone: Start: 01-23-2025 End: 01-30-2025 Follow-up encounter Alejandro Villar MD, PhD Work Phone: Neurology Start: 01-05-2025 End: 01-05-2025 Patient encounter procedure Svitlana Mayfield APRN.DEADENER Work Phone: Neurology Comment on above: Intractable 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 aura and without status migrainosus (Primary Dx) Start: 01-05-2025 End: 01-05-2025 ambulatory SVITLANA MAYFIELD Facility:[facility] Start: 01-04-2025 End: 01-04-2025 Patient encounter procedure Alejandro Villar MD, PhD Work Phone: Neurology Comment on above: Localization-related (focal) (partial) symptomatic epilepsy and epileptic syndromes with complex partial seizures, intractable, without status epilepticus (HCC) (Primary Dx); Memory loss Start: 01-04-2025 End: 01-04-2025 ambulatory ALEJANDRO VILLAR Facility:[facility] Start: 12-13-2024 End: 12-13-2024 Office outpatient visit 15 minutes Aftab Dey DO Work Phone: [facility] Comment on above: Abdominal wall hemat garrett, subsequent encounter (Primary Dx) Start: 12-13-2024 End: 12-13-2024 ambulatory AFTAB H ITZKOWITZ Not Available Start: 12-09-2024 End: 12-11-2024 Refill Lauren Otero APRNMavisDEADENER Work Phone: Neurology Comment on above: Refill Request Start: 12-08-2024 End: 12-08-2024 ambulatory Broderick Howard DO Work Phone: [facility] Work Phone: Start: 12-08-2024 End: 12-08-2024 Patient encounter procedure Broderick Howard DO Work Phone: [facility] Phys[facility] Work Phone: Start: 11-29-2024 End: 11-29-2024 Office outpatient new 45 minutes Aftab H Itzkowitz DO Work Phone: [facility] [place] Comment on above: Abdominal wall hemat garrett, initial encounter (Primary Dx) Start: 11-29-2024 End: 11-29-2024 ambulatory AFTAB H ITZKOWITZ Not Available Start: 11-28-2024 End: 11-28-2024 ambulatory Broderick Howard DO Work Phone: [facility] Work Phone: Start: 11-28-2024 End: 11-28-2024 Patient encounter procedure Broderick Howard DO Work Phone: [facility] Physician [facility] Work Phone: Start: 11-24-2024 End: 11-24-2024 Emergency department patient visit Broderick Howard DO Work Phone: [facility] Work Phone: Start: 11-24-2024 End: 11-24-2024 ambulatory [facility] Work Phone: Start: 11-24-2024 End: 11-24-2024 Patient encounter procedure [facility] Work Phone: Start: 11-17-2024 End: 11-17-2024 ambulatory [facility] Work Phone: Start: 11-17-2024 End: 11-17-2024 Patient encounter procedure [facility] Phys[facility] Work Phone: Start: 11-02-2024 End: 11-03-2024 ambulatory Shashi B Rhiew Facility[place] Start: 11-02-2024 End: 11-03-2024 Patient encounter procedure Shashi B Rhiew [facility] Start: 10-27-2024 End: 10-27-2024 Encounter for other preprocedural examination [facility] Start: 10-27-2024 End: 10-27-2024 Patient encounter procedure [facility] Work Phone: Start: 10-25-2024 Non-patient / Non-visit [facility] Work Phone: Start: 10-25-2024 End: 10-25-2024 ambulatory Shashi B Rhiew Facility:[facility] Start: 10-23-2024 End: 10-23-2024 ambulatory Shashi B Rhiew Facility:[facility] Start: 10-23-2024 End: 10-23-2024 Patient encounter procedure Shashi B Rhiew [facility] Start: 10-02-2024 End: 10-02-2024 ambulatory KITTY WALTERS MILLARD Facility:[place] Start: 09-07-2024 End: 09-07-2024 ambulatory DO Broderick Lee Work Phone: [facility] Work Phone: Start: 09-07-2024 End: 09-07-2024 Patient encounter procedure DO Broderick Howard Work Phone: [facility] Physician [facility] Work Phone: Start: 09-05-2024 End: 09-05-2024 Patient encounter procedure Randa Reilly MD Work Phone: Neurology Comment on above: Intractable 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 aura and without status migrainosus (Primary Dx) Start: 09-05-2024 End: 09-05-2024 ambulatory RANDA REILLY Facility:[facility] Start: 08-31-2024 End: 08-31-2024 ambulatory KITTY MILLARD Facility:[place] Start: 08-31-2024 End: 08-31-2024 Office outpatient visit 25 minutes Kitty Millard MD Work Phone: Cardiology Comment on above: 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); Cardiac pacemaker in situ; Bradycardia Start: 08-30-2024 End: 08-30-2024 ambulatory DO Broderick Ball Work Phone: [facility] Work Phone: Start: 08-30-2024 End: 08-30-2024 Patient encounter procedure DO Broderick Ball Work Phone: [facility] Physician [facility] Work Phone: Start: 08-29-2024 End: 08-29-2024 ambulatory DO Broderick Ball Work Phone: [facility] Work Phone: Start: 08-29-2024 End: 08-29-2024 Patient encounter procedure DO Broderick Ball Work Phone: [facility] Work Phone: Start: 08-29-2024 End: 08-29-2024 ambulatory DO Broderick Ball Work Phone: [facility] Work Phone: Start: 08-29-2024 End: 08-29-2024 Patient encounter procedure DO Broderick Ball Work Phone: [facility] Gastroenterology Work Phone: Start: 08-28-2024 Non-patient / Non-visit DO Miguel A Howard Work Phone: [facility] Work Phone: Start: 07-05-2024 Non-patient / Non-visit DO Miguel A Howard Work Phone: [facility] Work Phone: Start: 07-05-2024 End: 07-05-2024 ambulatory DO Broderick Howard Work Phone: [facility] Work Phone: Start: 07-05-2024 End: 07-05-2024 Departed Referred DO Broderick Howard Work Phone: [facility]-LAB Path Spec [facility] Start: 06-29-2024 Non-patient / Non-visit DO Miguel A Howard Work Phone: [facility] Work Phone: Start: 06-29-2024 End: 06-29-2024 Patient encounter procedure Alejandro Villar MD, PhD Work Phone: Neurology Comment on above: Focal epilepsy with impairment of consciousness, intractable (HCC) (Primary Dx); Partial epilepsy with impairment of consciousness, intractable (HCC) Start: 06-27-2024 End: 06-27-2024 ambulatory DO Broderick Howard Work Phone: [facility] Work Phone: Start: 06-27-2024 End: 06-27-2024 Patient encounter procedure DO Broderick Howard Work Phone: [facility] Work Phone: Start: 06-12-2024 End: 06-12-2024 ambulatory JACK POMPA Not Available Start: 06-08-2024 End: 06-08-2024 ambulatory DO Broderick Howard Work Phone: [facility] Work Phone: Start: 06-08-2024 End: 06-08-2024 Patient encounter procedure DO Broderick Howard Work Phone: [facility] Physician [facility] Nephrology Sunny Work Phone: Start: 06-05-2024 Non-patient / Non-visit DO Miguel A Howard Work Phone: [facility] Physician [facility] Work Phone: Start: 06-05-2024 End: 06-05-2024 ambulatory Keith Parks MD Facility:[facility] Start: 05-30-2024 End: 05-30-2024 ambulatory DO Broderick Howard Work Phone: [facility] Work Phone: Start: 05-30-2024 End: 05-30-2024 Patient encounter procedure DO Broderick Howard Work Phone: [facility]-MRI Main [place] Work Phone: Start: 05-23-2024 End: 05-23-2024 Patient encounter procedure Randa Reilly MD Work Phone: Neurology Comment on above: Intractable 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 aura and without status migrainosus (Primary Dx) Start: 05-15-2024 Non-patient / Non-visit DO Miguel A Howard Work Phone: [facility] Work Phone: Start: 05-15-2024 End: 05-15-2024 ambulatory Keith Parks MD Facility: [facility] Start: 05-05-2024 Non-patient / Non-visit DO Miguel A camargo Lee Work Phone: [facility] Physician [facility] Work Phone: Start: 05-03-2024 End: 05-03-2024 ambulatory DAVID MCFADDEN Not Available Start: 04-21-2024 End: 04-21-2024 ambulatory DO Broderick Howard Work Phone: [facility] Work Phone: Start: 04-21-2024 End: 04-21-2024 Patient encounter procedure DO Broderick Ball Work Phone: [facility] Physician [facility] Neurosurgery Work Phone: Start: 03-29-2024 End: 03-29-2024 Patient encounter procedure DO Broderick Ball Work Phone: [facility] Physician [facility] Work Phone: Start: 03-28-2024 End: 03-28-2024 Patient encounter procedure DO Broderick Ball Work Phone: [facility]-MRI Main [place] Work Phone: Start: 03-09-2024 End: 03-09-2024 ambulatory DO Broderick Howard Work Phone: [facility] Work Phone: Start: 03-09-2024 End: 03-09-2024 Patient encounter procedure DO Broderick Howard Work Phone: [facility]-Pacemaker Check Start: 03-08-2024 Follow-up encounter Kitty Millard MD Work Phone: [facility] Start: 03-08-2024 Patient encounter procedure Kitty Millard MD Work Phone: [facility] Start: 03-07-2024 End: 03-07-2024 Patient encounter procedure Randa Reilly MD Work Phone: Neurology Comment on above: Intractable 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 aura and without status migrainosus (Primary Dx); Cervicalgia; SHELL (obstructive sleep apnea) Start: 03-03-2024 Non-patient / Non-visit DO Miguel A camargo Ball Work Phone: [facility] Physician [facility] Work Phone: Start: 02-15-2024 Non-patient / Non-visit DO Miguel A camargo Ball Work Phone: [facility] Physician [facility] Work Phone: Start: 02-10-2024 Non-patient / Non-visit DO Miguel A Howard Work Phone: [facility] Physician [facility] Professional [employer] Work Phone: Start: 02-09-2024 End: 02-09-2024 ambulatory [facility] Work Phone: Start: 02-09-2024 End: 02-09-2024 Patient encounter procedure [facility] Work Phone: Start: 12-23-2023 End: 12-23-2023 Patient encounter procedure Alejandro Villar MD, PhD Work Phone: Neurology Comment on above: Intractable 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 aura and without status migrainosus (Primary Dx) Start: 11-24-2023 End: 11-24-2023 ambulatory Broderick Howard Other [facility] [employer] Other Start: 11-24-2023 Office outpatient vi sit 15 minutes Broderick Lee [facility] Start: 11-24-2023 End: 11-24-2023 Patient encounter procedure [facility] Work Phone: Start: 09-13-2023 Refill Alejandro wright MD, PhD Work Phone: Neurology Comment on above: Refill Request Patient Update Start: 09-08-2023 Follow-up encounter Kitty Millard MD Work Phone: [facility] Start: 09-08-2023 End: 09-08-2023 Patient encounter procedure Kitty Millard MD Work Phone: [facility] Comment on above: 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); Cardiac pacemaker in situ; Bradycardia Start: 08-25-2023 End: 08-25-2023 ambulatory Niki Weeks Other [facility] [employer] Other Start: 08-25-2023 Postop follow up vis it related to original px Niki Weeks [facility] Neurosurgery Start: 08-16-2023 End: 08-16-2023 ambulatory Niki Blades Other [employer] Other Start: 08-16-2023 Postop follow up vis it related to original px Niki Blades [facility] Neurosurgery Start: 08-13-2023 End: 08-13-2023 ambulatory Broderick Ball Other [employer] Other Start: 08-13-2023 Telephone encounter Broderick Howard [facility] Start: 08-12-2023 End: 08-12-2023 ambulatory Niki Blades Other [employer] Other Start: 08-12-2023 Postop follow up vis it related to original px Niki Blades [facility] Neurosurgery Start: 08-03-2023 End: 08-05-2023 Admission to same day surgery center DO Broderick Ball Work Phone: [facility]-Surgery Center Main [place] Start: 08-03-2023 End: 08-05-2023 ambulatory DO Broderick Ball Work Phone: [facility] Work Phone: Start: 08-02-2023 End: 08-02-2023 ambulatory Broderick Ball Other [employer] Other Start: 08-02-2023 Telephone encounter Broderick Howard FP [facility] Start: 07-20-2023 End: 07-20-2023 ambulatory DO Broderick Ball Work Phone: [facility] Work Phone: Start: 07-20-2023 End: 07-20-2023 Patient encounter procedure DO Broderick Ball Work Phone: [facility]-Pre-Surgical Testing Work Phone: Start: 07-09-2023 End: 07-09-2023 ambulatory Niki Blades Other [employer] Other Start: 07-09-2023 Telephone encounter Niki Weeks [facility] [employer] Start: 07-07-2023 End: 07-07-2023 ambulatory Niki Weeks Other [employer] Other Start: 07-07-2023 Office outpatient ne w 45 minutes Niki Weeks [facility] Neurosurgery Start: 06-08-2023 Follow-up encounter Kitty Millard MD Work Phone: [facility] Start: 06-08-2023 Pacemaker Remote F/U Kitty Millard MD Work Phone: [facility] Start: 06-04-2023 ambulatory Facility:9 0 Start: 06-04-2023 End: 06-04-2023 ambulatory DO Broderick Ball Work Phone: [facility] Work Phone: Start: 06-04-2023 End: 06-04-2023 Patient encounter procedure DO Broderick Ball Work Phone: [facility]-MRI Main [place] Work Phone: Start: 05-14-2023 ambulatory Facility:9 0 Start: 05-14-2023 End: 05-14-2023 ambulatory DO Broderick Ball Work Phone: [facility] Work Phone: Start: 05-14-2023 End: 05-14-2023 Patient encounter procedure DO Broderick Ball Work Phone: [facility]-Pacemaker Check Start: 05-06-2023 End: 05-06-2023 ambulatory Bertram Sanders Other [employer] Other Start: 05-06-2023 Patient encounter procedure Bertram Sanders [facility] Start: 05-03-2023 End: 05-03-2023 ambulatory Broderick Ball Other [employer] Other Start: 05-03-2023 Office outpatient vi sit 15 minutes Broderick Howard [facility] Start: 05-03-2023 Telephone encounter Broderick SCHWARZ G [facility] Start: 03-29-2023 End: 04-14-[address] BRODERICK HOWARD [facility] [employer] Other Start: 03-29-2023 Telephone encounter Broderick SCHWARZ [facility] Start: 03-25-2023 End: 03-25-2023 ambulatory Broderick Howard Other [employer] Other Start: 03-25-2023 Office outpatient vi sit 25 minutes Broderick Howard [facility] Start: 03-15-2023 End: 04-14-2023 ambulatory AGUILAR H FAWWAD Facility:[facility] Start: 02-24-2023 Follow-up encounter Kitty Millard MD Work Phone: [facility] Start: 02-24-2023 Pacemaker Remote F/U Kitty Millard MD Work Phone: [facility] Start: 02-15-2023 End: 03-12-2023 ambulatory AGUILAR H FAWWAD Facility:[facility] Start: 02-03-2023 End: 02-03-2023 ambulatory Bertram Sanders Other [employer] Other Start: 02-03-2023 Telephone encounter Bertram SCHWARZ [facility] Start: 01-13-2023 End: 02-12-2023 ambulatory AGUILAR H FAWWAD Facility:[facility] Start: 01-07-2023 End: 01-07-2023 ambulatory Bertram Sanders Other [employer] Other Start: 01-07-2023 Patient encounter procedure Bertram Sanders [facility] Start: 12-16-2022 End: 01-13-2023 ambulatory AGUILAR H FAWWAD Facility:[facility] Start: 11-25-2022 End: 11-25-2022 ambulatory Broderick Howard Other [employer] Other Start: 11-25-2022 Follow-up encounter Kitty Millard MD Work Phone: [facility] Start: 11-25-2022 Office outpatient vi sit 25 minutes Broderick Howard [facility] Start: 11-25-2022 Pacemaker Remote F/U Kitty Millard MD Work Phone: [facility] Start: 11-23-2022 Patient encounter procedure Broderick Howard Other [employer] Other Start: 11-16-2022 End: 12-16-2022 ambulatory AGUILAR H FAWWAD Facility:[facility] Start: 10-15-2022 Adult health examination Niki Blades Other [employer] Other Start: 10-15-2022 Gynecological examination normal Niki Blades Other [employer] Other Start: 10-15-2022 End: 11-15-2022 ambulatory AGUILAR H FAWWAD Facility:[facility] Start: 09-15-2022 End: 10-14-2022 ambulatory AGUILAR H FAWWAD Facility:[facility] Start: 09-10-2022 End: 09-10-2022 Patient encounter procedure Alejandro Villar MD, PhD Work Phone: Neurology Comment on above: 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, intractable (HCC) Start: 08-26-2022 Follow-up encounter Kitty Millard MD Work Phone: [facility] Start: 08-26-2022 Pacemaker Remote F/U Kitty Millard MD Work Phone: [facility] Start: 08-16-2022 End: 09-14-2022 ambulatory [...] 01-06-2022 End: 01-06-2022 ambulatory Bertram Sanders Other [employer] Other Start: 01-06-2022 Patient encounter procedure Bertram Sanders [facility] Gastroenterology Start: 10-14-2020 End: 10-14-2020 Pre-procedure evaluation check Niki Blades Other [employer] Other Procedures Date Procedure Procedure Detail Performing Clinician Start: 08-01-2025 MR lumbar spine wo con Broderick Howard DO Work Phone: Start: 07-02-2025 MM screening mammo BI w/CAD Broderick hogan DO Work Phone: Start: 11-24-2024 CT of abdomen and pelvis without contrast Broderick Howard DO Work Phone: Start: 11-24-2024 Bacteria identified in Blood by Culture Broderick Howard DO Work Phone: Start: 11-02-2024 Laminectomy Shashi De Souza Start: 08-31-2024 Ecg routine ecg w/least 12 [...] Cardiac pacemaker, d evice (physical object) Shashi Anselmodhara Cataract surgery Shashi Dial ew Cholecystectomy Shashi Moss w Colonoscopy Shashi De Souza End: 01-25-2022 Depression screening Niki Desi Other Esophagogastroduodenoscopy R callie De Souza Hammer [...] Start: 06-29-2027 Diabetes Screening Diabetes Screenin g [facility] Start: 04-10-2026 BP Controlled (<130/80) BP Controlle d (<130/80) [facility] Start: 01-09-2026 End: 01-09-2026 Patient encounter procedure 01/09/2026 11:00 AM EST Office Visit Neurology [address] [place] [id number] Alejadnro Villar MD, PhD [address] [place] [address] annaul follow up Neurology Comment on above: annaul follow up Start: 01-05-2026 BP Controlled (<130/80) BP Controlle d (<130/80) [facility] Start: 01-04-2026 BP Controlled (<130/80) BP Controlle d (<130/80) [facility] Start: 10-30-2025 End: 10-30-2025 Patient encounter procedure 10/30/2025 10:30 AM EST Office Visit Neurology [address] [place] [address] [place] [address] [address] [place] [address] Botox Neurology Comment on above: Botox Start: 07-18-2025 End: 07-18-2025 Patient encounter procedure 07/18/2025 10:00 AM EDT Office Visit Neurology [address] [place] [id number] [place] [address] [address] [place], [place] [id number] Botox Neurology Comment on above: Botox Start: 07-16-2025 Influenza vaccination Influenza Vacc ine (#1) [facility] Start: 07-02-2025 Patient referral [facility] Work Phone: Start: 05-21-2025 End: 05-21-2025 Patient encounter procedure 05/21/2025 8:00 AM EDT Office Visit Neurology [address] [place], [place] [id number] Elian Jones DO [address] [place] [id number] MCI (mild cognitive impairment) [G31.84] Neurology Comment on above: MCI (mild cognitive impairment) [G31.84] Start: 04-10-2025 End: 04-10-2025 Patient encounter procedure 04/10/2025 11:30 AM EDT Office Visit Neurology [address] [place] [id number] [place] [address] [address]/F[address] [place] [id number] Botox Neurology Comment on above: Botox Start: 2025 RSV Vaccine (1 - 1-d ose 75+ series) RSV Vaccine (1 - 1-dose 75+ series) [facility] Start: 01-05-2025 End: 01-05-2025 Patient encounter procedure 01/05/2025 12:00 PM EST Office Visit Neurology [address] [place] [address] Svitlana Mayfield APRN.DEADENER [address] [place] [address] Botox Neurology Comment on above: Botox Start: 01-04-2025 End: 01-04-2025 Patient encounter procedure 01/04/2025 2:00 PM EST Office Visit Neurology [address] [place] [address] Alejandro Villar MD, PhD [address] [place] [address] Follow up Neurology Comment on above: Follow up Start: 12-12-2024 End: 12-12-2024 Patient encounter procedure 12/12/2024 11:00 AM EST Office Visit Neurology [address] [place] [address] [place] [address] [address] [place] [address] Botox Neurology Comment on above: Botox Start: 11-28-2024 DIABETES SCREEN DIABETES SCREEN [facility] Start: 11-28-2024 Diabetes Screening Diabetes Screenin g [facility] Start: 11-24-2024 [facility] Start: 11-24-2024 Bacteria identified in Blood by Culture Blood Culture [facility] Start: 11-15-2024 Advance Directive Discussion Advance Directive Discussion [facility] Start: 11-15-2024 Medicare Advantage A nnual Wellness Visit Medicare Advantage Annual Wellness Visit [facility] Start: 10-02-2024 End: 10-02-2024 Patient encounter procedure 10/02/2024 2:40 PM EST Office Visit Cardiology [address] [facility] [place] [address] echo Cardiology Comment on above: echo Start: 09-05-2024 End: 09-05-2024 Patient encounter procedure 09/05/2024 1:30 PM EDT Office Visit Neurology [address] [place] [address] [place] [address] [address] [place] [address] Botox Neurology Comment on above: Botox Start: 08-31-2024 End: 08-31-2024 Patient encounter procedure 08/31/2024 10:00 AM EDT Office Visit Cardiology [address] [place] [address] [place] [address] [place], [place] [phone] return in about 1 year (around 09/08/2024) Cardiology Comment on above: return in about 1 ye ar (around 09/08/2024) Start: 07-16-2024 Covid-19 Vaccine () Covid-19 Vaccine () [facility] Start: 07-16-2024 Influenza vaccination Influenza Vacc ine (#1) [facility] Start: 06-29-2024 End: 06-29-2024 Patient encounter procedure 06/29/2024 1:00 PM EDT Office Visit Neurology [address] [place] [address] Alejandro Villar MD, PhD [address] [place] [address] Follow Up-rescheduled from 06/22 Neurology Comment on above: Follow Up-reschedule d from 06/22 Start: 04-21-2024 Patient referral [facility] Work Phone: Start: 11-15-2023 Advance Directive Discussion Advance Directive Discussion [facility] Start: 08-05-2023 [facility] Start: 08-03-2023 Hospital admission [facility] Start: 08-03-2023 [facility] Start: 07-16-2023 Covid-19 Vaccine () Covid-19 Vaccine () [facility] Start: 07-16-2023 Influenza vaccination C [facility] Start: 11-15-2022 ADVANCE DIRECTIVE DISCUSSION ADVANCE DIRECTIVE DISCUSSION [facility] Start: 09-10-2022 End: 11-10-2022 levETIRAcetam [Mass/volume] in Serum or Plasma [facility] Work Phone: Comment on above: Expected: 09/10/2022 , Expires: 11/10/2022 Start: 09-10-2022 End: 11-10-2022 Zonisamide [Mass/volume] in Serum or Plasma [facility] Work Phone: Comment on above: Expected: 09/10/2022 , Expires: 11/10/2022 Start: 07-16-2022 Influenza vaccination INFLUENZA (#1) [facility] Start: 04-30-2022 Screening for malign ant neoplasm of colon [facility] Start: 11-15-2021 ADVANCE DIRECTIVE DISCUSSION ADVANCE DIRECTIVE DISCUSSION [facility] Start: 02-04-2019 Pneumococcal Vaccine : 50+ (2 of 2 - PCV) Pneumococcal Vaccine: 50+ (2 of 2 - PCV) [facility] Start: 02-04-2019 Pneumococcal Vaccine : 65+ (2 - PCV) Pneumococcal Vaccine: 65+ (2 - PCV) [facility] Start: 02-04-2019 Pneumococcal Vaccine : 65+ (2 of 2 - PCV) Pneumococcal Vaccine: 65+ (2 of 2 - PCV) [facility] Start: 2015 BONE DENSITY BONE DENSITY [facility] Start: 2015 Bone Density Screening Bone Density Screening [facility] Start: 2015 Pneumococcal Vaccine : 65+ Years (1 of 1 - PCV) Pneumococcal Vaccine: 65+ Years (1 of 1 - PCV) [facility] Start: 2015 PNEUMOCOCCAL: 65+ (1 - PCV) PNEUMOCOCCAL: 65+ (1 - PCV) [facility] Start: 2015 Screening for osteoporosis Bone Dens ity Screening [facility] Start: 2010 RSV Vaccine (1 - 1-d ose 60+ series) RSV Vaccine (1 - 1-dose 60+ series) [facility] Start: 2010 RSV Vaccine (1 - Ris k 60-74 years 1-dose series) RSV Vaccine (1 - Risk 60-74 years 1-dose series) [facility] Start: 2000 SHINGRIX VACCINE (1 of 2) MONCADA GRIX VACCINE (1 of 2) [facility] Start: 1995 COLOGUARD (FIT-DNA) COLOGUARD (FIT-D NA) [facility] Start: 1995 Colonoscopy COLONOSCOPY [facility] Start: 1995 COLORECTAL CANCER SCREENING COLORECTAL CANCER SCREENING [facility] Start: [address] COLONOGRAPHY [facility] Start: 1995 FECAL OCCULT BLOOD FECAL OCCULT BLOO D [facility] Start: 1995 Lipid 1996 panel - S akila or Plasma Lipid Screening [facility] Start: 1995 Lipid panel Lipid Screening [facility] Start: 1995 LIPID SCREEN LIPID SCREEN [facility] Start: 1995 Screening for malign ant neoplasm of colon [facility] Start: 1995 SIGMOIDOSCOPY SIGMOIDOSCOPY [facility] Start: 1990 Mammography [facility] Start: 1990 Screening for malign ant neoplasm of breast [facility] Start: 1969 Urine microalbumin profile [facility] Start: 1968 ANNUAL PCP TEAM BATCH RECORDS CLERK RAVINDRA DISEASE VISIT ANNUAL PCP TEAM CHRONIC DISEASE VISIT [facility] Start: 1968 BP CONTROLLED (<130/80) BP CONTROLLE D (<130/80) [facility] Start: 1968 HEPATITIS C SCREENING HEPATITIS C [facility] Start: 1968 Hepatitis C screening Hepatitis C [facility] Start: 1950 COVID-19 VACCINE (#1) COVID-19 VACCI NE (#1) [facility] Start: 1950 Screening for malign ant neoplasm of colon [facility] BACH SCREENING TEST BACH SCREENI NG TEST Procedures Routine Memory loss Ordered: 01/04/2025 [facility] Work Phone: Comment on above: Ordered: 01/04/2025 End: 07-23-2023 ECG COMPLETE ECG COMPLETE ECG Routine Chronic fatigue 1 Occurrences starting 07/23/2022 until 07/23/2023 [facility] Work Phone: Comment on above: 1 Occurrences starti ng 07/23/2022 until 07/23/2023 ECG COMPLETE ECG COMPLETE ECG Routine Sinus node dysfunction (HCC) Cardiac pacemaker in situ Bradycardia Ordered: 09/08/2023 [facility] Work Phone: Comment on above: Ordered: 09/08/2023 ECG COMPLETE ECG COMPLETE ECG Routine Sinus node dysfunction (HCC) Ordered: 08/31/2024 [facility] Work Phone: Comment on above: Ordered: 08/31/2024 End: 08-31-2025 Echocardiography ECHO Cardiology Routine Sinus node dysfunction (HCC) 1 Occurrences starting 08/31/2024 until 08/31/2025 [facility] Comment on above: 1 Occurrences starti ng 08/31/2024 until 08/31/2025 MG Breast - bilatera l Screening [facility] MG Breast - bilatera l Screening [facility] Patient Education [facility] Work Phone: Patient referral [facility] Work Phone: Renal function 1999 panel [...] US Lower extremity v ein - right [facility] Immunizations Immunization Date Immunization Notes Care Provider [facility] 08-29-2024 influenza, high dose seasonal, preservative-free DO Broderick Howard Work Phone: [facility] 08-29-2024 influenza virus vaccine, unspecified formulation Elian Jones DO Work Phone: [facility] 08-31-2023 influenza virus vaccine, unspecified formulation Randa Reilly MD Work Phone: [facility] 07-30-2022 influenza virus vaccine, split virus (incl. purified surface antigen) [employer] Other [employer] Other 07-30-2022 influenza virus vaccine, unspecified formulation [facility] 09-10-2021 COVID-19 mRNA-1273 (Moderna) DO [employer] Work Phone: [facility] 07-30-2021 influenza virus vaccine, split virus (incl. purified surface antigen) [employer] Other [employer] Other 07-30-2021 influenza virus vaccine, unspecified formulation [facility] 01-14-2021 COVID-19 mRNA-1273 (Moderna) DO [employer] Work Phone: [facility] 12-17-2020 COVID-19 mRNA-1273 (Moderna) DO [employer] Work Phone: [facility] 09-03-2020 influenza virus vaccine, split virus (incl. purified surface antigen) [employer] Other [employer] [facility] [employer] Other 09-03-2020 influenza virus vaccine, unspecified formulation [facility] 08-23-2019 influenza virus vaccine, split virus (incl. purified surface antigen) [employer] Other [facility] [employer] Other 08-23-2019 influenza virus vaccine, unspecified formulation [facility] 09-07-2018 influenza virus vaccine, split virus (incl. purified surface antigen) [employer] Other [facility] [employer] Other 09-07-2018 influenza virus vaccine, unspecified formulation [facility] 02-04-2018 pneumococcal polysaccharide vaccine, 23 valent [employer] Other [facility] Payers Date Payer Category Payer Self-pay [id number] 2024 Medicare (Managed Care) 1.2. [id number] 2024 Unknown [employer] MEDICARE ELITE [id number] 2024-Present [phone] [address] [place] [address] HMO [id number] 2024 Unknown [id number] 2021 Unknown [id number] 2015 Private Health Insurance FLORY JUAREZ MEDICARE SUPPLEMENT [id number] 2015-Present [phone] [address] [place] [address] Indemnity [id number] 2013 Medicare [id number] 1.13.159.2 .[id number] 2008 Unknown [place] BC/BS [id number] 1959 Medicare [id number] 2.16.840.1.712826.19 1959 Medicare [id number] 2.16.840.1.186487.19 1950 Unknown [id number] 2.16.840.1.866435.3.579.2 .593 1950 Unknown [id number] 2.16840.1.994648.3.579.2 .593 1950 Unknown [id number] 2.840.1.525710.3.579.2 .593 1950 Unknown [id number] 2.16.840.1.617526.3.579.2 .593 1950 Unknown [id number] 2.16.840.1.895497.3.579.2 .593 1950 Unknown [id number] 2.16.840.1.506895.3.579.2 .593 1950 Unknown [id number] 2.16.840.1.114229.3.579.2 .593 1950 Unknown [id number] 2.16.840.1.562949.3.579.2 .593 1950 Unknown [id number] 2.16.840.1.989855.3.579.2 .593 1950 Unknown [id number] 2.16.840.1.462244.3.579.2 .593 1950 Unknown [id number] 2.16.840.1.254285.3.579.2 .593 1950 Unknown [id number] 2.16.840.1.645690.3.579.2 .593 1950 Unknown [id number] 2.16.840.1.409575.3.579.2 .593 1950 Unknown [id number] 2.16.840.1.041606.3.579.2 .593 1950 Unknown [id number] 2.16.840.1.612074.3.579.2 .593 1950 Unknown [id number] 2.16.840.1.399734.3.579.2 .593 1950 Unknown [id number] 2.16.840.1.303380.3.579.2 .593 1950 Unknown [id number] 2.16.840.1.013927.3.579.2 .356 1950 Unknown [id number] 2.16.840.1.731274.3.579.2 .356 1950 Unknown [id number] 2.16.840.1.884099.3.579.2 .196 1950 Unknown [id number] 2.16.840.1.197058.3.579.2 .196 1950 Unknown [id number] 2.16.840.1.306363.3.579.2 .727 1950 Unknown [id number] 2.16.840.1.508788.3.579.2 .72 1950 Unknown [id number] 2.16.840.1.762641.3.579.2 .72 1950 Unknown [id number] 2.16.840.1.127640.3.579.2 .72 1950 Unknown [id number] 2.840.1.788591.3.579.2 .72 1950 Unknown [id number] 2.840.1.532276.3.579.2 .1258 1950 Unknown [id number] 2.16840.1.036544.3.579.2 .1258 1950 Unknown [id number] 2.840.1.168026.3.579.2 .1258 1950 Unknown [id number] 2.840.1.037538.3.579.2 .1258 1950 Unknown [id number] 2.16840.1.448364.3.579.2 .1258 1950 Unknown [id number] 2.16.840.1.257309.3.579.2 .1258 1950 Unknown [id number] 2.16840.1.685788.3.579.2 .727 Medicare Medicare [id number] Unknown [id number] 2.16840.1.516169.3.579.2 .531 Unknown [id number] 2.16840.1.187501.3.579.2 .531 Unknown [id number] 2.16.840.1.185589.3.579.2 .531 Social History Date Type Detail Facility Start: 09-10-2022 End: 09-08-2023 Sex Assigned At [facility] Start: 02-19-2011 End: 08-15-2025 Tobacco smoking status NHIS Never smoked tobacco [facility] Start: 02-19-2011 End: 09-10-2022 Tobacco use and exposure Smokeless tobacco non-user [facility] Start: 11-28-2021 End: 07-18-2025 Alcohol intake Current non-drinker of alcohol (finding) [facility] Start: 1950 Sex Assigned At Not on file [facility] Start: 07-13-2022 End: 09-10-2022 Exposure to SARS-CoV-2 (event) Not sure [facility] Start: 1950 Sex Assigned At Female F [facility] Start: 09-10-2022 End: 09-08-2023 History of Social function [facility] Start: 10-16-2012 Adult Depression Screening Assessment 2 [facility] Tobacco smoking status No Smokin g Status Entered [facility] Start: 11-17-2024 End: 02-22-2025 Sex Female (finding) [facility] Start: 11-29-2024 Alcoholic beverage intake Current drinker of alcohol (finding) [facility] Medical Equipment Procedure Code Equipment Code Equipment Origin al Text Equipment Identifier Dates Plate Bn 12mm Cm f Ti 2 H Lp - [id number] Start: 08-16-2015 Pin Crss Sd Scr 1.5x4mm - [id number] Start: 08-16-2015 [id number] [employer] [id number] Start: 05-22-2015 [id number] [employer] [id number] Start: 05-22-2015 [id number] [employer] [id number] Start: 05-22-2015 Goals Date Patient Goal Desired Activity /State Personal health goal Functional Status Date Assessment Result Facility 11-02-2024 Functional Status No [facility] 08-05-2023 Functional status Patient at Baseline [facility] Work Phone: 08-19-2015 Are you deaf, or do you have serious difficulty hearing No 08/19/2015 11:02 AM EDT Vita Gibbs (Rn) (Hist), RN No [facility] 08-19-2015 Are you blind, or do you have serious difficulty seeing, even when wearing glasses No 08/19/2015 11:02 AM Vita Elizondo (Rn) (Hist), RN No [facility] 08-19-2015 Do you have serious difficulty walking or climbing stairs No 08/19/2015 11:02 AM XANDERT Vita Gibbs (Rn) (Hist), RN No [facility] 08-19-2015 Do you have difficul ty dressing or bathing Yes 08/19/2015 11:02 AM XANDERT Vita Gibbs (Rn) (Hist), RN Yes [facility] 08-19-2015 Because of a physica l, mental, or emotional condition, do you have difficulty doing errands alone such as visiting a physician's office or shopping Yes 08/19/2015 11:02 AM XANDERT Vita Gibbs (Rn) (Hist), RN Yes [facility] Mental Status Date Assessment Result Facility 08-05-2023 Cognitive function Cognitive Sta tus Patient at Baseline [facility] Work Phone: 08-19-2015 Because of a physica l, mental, or emotional condition, do you have serious difficulty concentrating, remembering, or making decisions No 08/19/2015 11:02 AM Vita ElizondoRn) (Hist), RN No [facility] Clinical Notes 01-24-2015 to 07-18-2025 Randa Reilly MD - 07/18/2025 10:24 AM Lon Mcleod RN - 07/18/2025 9:59 AM Randa Allen MD - 07/18/2025 10:23 AM Randa Allen MD - 07/18/2025 10:23 AM EDT Note Date & Type Note Facility 07-18-2025 Note HNO ID: [id number] Author: RANDA REILLY MD Service: ? Author Type: Physician Type: Progress Notes Filed: 07/18/2025 12:52 Note Text: PROGRESS NOTE- HEADACHE MEDICINE SERVICE DATE: July 18, 2025 Location: [facility] Participants: patient, and provider HPI: [...] with me or WENDY Randa Reilly MD [facility] 07-18-2025 History of Presen t illness Narrative PROGRESS NOTE- HEADACHE MEDICINE SERVICE DATE: July 18, 2025 Location: [facility] Participants: patient, and provider HPI: [...] with me or WENDY Randa Reilly MD [facility] Patient name and confirmed. Patient states she would like to receive Botox treatment today. 2 vials of Botox A (100 units in each) reconstituted with 2.2 cc of normal saline in each vial. Botox drawn up into four, 1 cc syringes. Each syringe containing 50 units of Botox. Assisted by: Robyn Blanc RN Botox, 2 vials: Lot # [id number] Exp 09/2027 Lot # [id number] 09/[address] Reilly to administer and verified order. documented in this encounter [facility] 07-18-2025 Note HNO ID: [id number] Author: RANDA REILLY MD Service: ? Author [...] Time Out: YES Sign Out Discussion: Completed Rnada Reilly MD Botox procedure note Treatment # 5 Consent in EPIC Dilution: 5 units/0.1 ml ( 100 unit vial with 2 cc diluent or 200 unit vial with 4 cc diluent) Diluent: normal saline Indication: Chronic Intractable Migraine Right temporal metal plate with skin irregularity, no shunt Injection Sites Muscle Fixed Site/Fixed Dose Bilat House Wrecker 20 U divided in 2 sites Procerus [...] Total Units wasted: 0 Randa Reilly MD [facility] 07-18-2025 Procedure note BOTOX PROCEDURE NOTE UNIVERSAL [...] Injection Sites Muscle Fixed Site/Fixed Dose Bilat House Wrecker 20 U divided in 2 sites Procerus [...] wasted: 0 Randa Reilly MD [facility] 07-18-2025 Procedure note BOTOX PROCEDURE NOTE [...] Injection Sites Muscle Fixed Site/Fixed Dose Bilat House Wrecker 20 U divided in 2 sites Procerus [...] wasted: 0 Randa Reilly MD [facility] documented in this encounter [facility] 07-18-2025 Note HNO ID: [id number] Author: LON ALEXANDER RN Service: ? Author [...] Blanc RN Botox, 2 vials: Lot # [id number] Exp 09/2027 Lot # [id number] Exp 09/[address] Reilly to administer and verified order. [facility] 07-02-2025 Evaluation note Diagnosis Onset Date Resolution Age-related osteoporosis without current pathological fracture acute June 2:50pm Chronic kidney disease acute 2024 2:50pm Gastroesophageal reflux disease with esophagitis without hemorrhage acute July 02, 2025 2:50pm History of pancreatic cancer acute July 02 2:50pm Hypertension acute July 02, 2025 2:50pm Lumbar stenosis with neurogenic claudication acute June 152024 2:50pm Major depression acute June 152024 2:50pm Medicare annual wellness visit, subsequent noneactive July 02, 2:50pm Screening mammogram for breast cancer noneactive July 02 2:50pm [facility] Work Phone: 1(240) 575-489608-18-2025 Evaluation note* Diagnosis Onset Date Resolution Status Admit Date Age-related osteoporosis wit hout current pathological fracture acute 2024 2:50pm Chronic kidney disease acute 2024 2:50pm Gastroesophageal reflux dise ase with [...] Secondary hyperparathyroidism acute August 15, 2025 9:36am [facility] Work Phone: 1(733) 470-620807-07-2025 Instructions* Patient Instructions* Jyoti Crowley MD - [...] much intensity you could go. Source : www.[employer] Dietary Modifications: Increase the amount of vegetables [...] high glycemic index: instant rice, mashed potatoes, Palestinian fries bagels, baguettes, vanilla wafers processed cereals (Cheerios, [place]-Puffs, corn/bran flakes, Total, etc.) Avoid foods high in total fat, especially saturated fats and cholesterol Eat foods rich in [place]-3 fatty acids (fish, olive oil, nuts) For More Information on the Mediterranean and the MIND Diet Visit: https://www.deena.nih.gov/health/al usxsaiwr-jet-okcqweeh/uvrf-fg-zp-ptmi-zhbnp-sipq-qjt-lkgohvjyeu-beuojxllom-disea se Source : [employer] Memory Workouts: In some studies, participation in [...] a Musical Instrument Dancing (ballroom) Computer Games/Apps: [employer] or [employer]aze[employer] phone application Tasks to improve attention/working memory: [...] et al. The Lancet, Volume 396, Issue 33244, [phone] Patient Education Section : Fall Prevention As [...] include walking, swimming, and Panda Chi (a Welsh martial art that involves slow, gentle movements). [...] your health and independence. [facility]25 NoteHNO ID: [id number] Author: KALIN GUAMAN OCCA Service: ? Author Type: Director Of Vocational Training Type: Progress Notes Filed: 05/21/2025 08:04 Note Text: Cassi Rodrigez is a 75 year old year old left handed woman Accompanied by: spouse. 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 Vital Signs: There were no vitals taken for this visit.[facility]07-07-2025 History of Present illness Narrative* Kalin Guaman OCCA - 05/21/2025 8:03 AM EDT Cassi Rodrigez is a 75 year old year old left handed woman Accompanied by: spouse. 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 Vital Signs: There were no vitals taken for this visit. * Elian Jones DO - 05/21/2025 8:00 AM EDT Images from the original note were not included. [facility] New Patient Evaluation Cassi Rodrigez : 1950 05/21/2025 8:00 AM Chief Complaint: memory concern I had the pleasure of seeing this 75 year old year old female at the [facility]. The patient is referred by Dr. Alejandro [...] She was advised to follow up at [facility] for further evaluation of her memory concerns. [...] work-up for impaired memory in the past. (CHANELLE) Neurological past history Focal Epilepsy s/p RTL [...] Version 7.1 Total Score: 27/30 Visuospatial/Executive Alternating [place] Making: Patient successfully draws the pattern without [...] recalled (+1) Word 3: Required multiple choice- 'mandaen, school, hospital' (0) Word 4: Required category [...] of hospital, clinic, office), city. Orientation Score: 6/6 Education less than or equal to 12th [...] which included preparing to see the patient, ykpg-mm-uisj patient care, performing a medically appropriate examination, [...] 05/23/2025 Time: 2:35 PM [facility]-2025 NoteHNO ID: [id number] Author: ELIAN JONES DO Service: ? Author Type: Physician Type: Progress Notes Filed: 05/23/2025 14:36 Note Text: [facility] New Patient Evaluation Cassi Rodrigez : 1950 05/21/2025 8:00 AM Chief Complaint: memory concern I had the pleasure of seeing this 75 year old year old female at the [facility]. The patient is referred by Dr. Alejandro [...] She was advised to follow up at [facility] for further evaluation of her memory concerns. [...] medication for their flor (more content not included)...[facility]05-27-2025 NoteHNO ID: [id number] Author: RANDA REILLY MD Service: ? Author [...] Injection Sites Muscle Fixed Site/Fixed Dose Bilat House Wrecker 20 U divided in 2 sites Procerus [...] Total Units wasted: 0 Randa Reilly MD [facility] [id number] Procedure note* Randa Reilly MD - 04/10/2025 [...] Injection Sites Muscle Fixed Site/Fixed Dose Bilat House Wrecker 20 U divided in 2 sites Procerus [...] wasted: 0 Randa Reilly MD [facility]05-27-2025 Procedure note* Randa Reilly MD - [...] Injection Sites Muscle Fixed Site/Fixed Dose Bilat House Wrecker 20 U divided in 2 sites Procerus [...] Total Units wasted: 0 Randa Reilly MD [facility] Guys documented in this encounterGe[facility]05-27-2025 NoteHNO ID: [id number] Author: LON ALEXANDER RN Service: ? Author [...] Farfan RN Botox, 2 vials: Lot # [id number] 08/2027 Lot # [id number] 08/[address] Reilly to administer and verified order.[facility] 04-10-2025 History of Present illness Narrative* [...] Farfan RN Botox, 2 vials: Lot # [id number] Exp 08/2027 Lot # [id number] 08/[address] Reilly to administer and verified order. * Randa Reilly MD - 04/10/2025 11:20 AM EDT PROGRESS NOTE- HEADACHE MEDICINE SERVICE DATE: April 10, 2025 Location: [facility] Participants: patient, and provider HPI: [...] with me or WENDY Randa Reilly MD [facility] documented in [facility] encounterGe[facility]05-[facility]-2025 NoteHNO ID: [id number] Author: RANDA REILLY MD Service: ? Author Type: Physician Type: Progress Notes Filed: 04/10/2025 12:19 Note Text: PROGRESS NOTE- HEADACHE MEDICINE SERVICE DATE: April 10, 2025 Location: [facility] Participants: patient, and provider HPI: [...] with me or WENDY Randa Reilly MD [facility] Neurological [facility]02-21-2025 NoteHNO ID: [id number] Author: DAVINA BRENNAN RN Service: ? Author [...] Hamm RN Botox, 2 vials: Lot # [id number] Exp 02/2027 Lot # [id number] Exp 02/2027 Botox handed to Svitlana Mayfield CNP to administer and verified order.[facility] [id number] History of Present illness Narrative* Davina Brennan [...] 50 units of Botox. Assisted by: Evonne Adamsox, 2 vials: Lot # [id number] Exp 02/2027 Lot # [id number] Exp 02/2027 Botox handed to Svitlana Mayfield [...] days/month: 0 (0 headache-free hours) Migraine severity: 10 After treatment with Onabotulinum Toxin A: Number [...] for migraine Informed Consent Consent Obtained: Written [place] Protocol A moment to CARE was completed [...] applicable Written Consent Obtained: Written LOT #: [id number] Expiration Date: Month: Year: 2026 Second vial: LOT #: [id number] Expiration Date: Month: Year: 2026 Injection Sites Left (Units) Left (Sites) Right (Units) Right (Sites) TOTAL (Units) House Wrecker 5 1 5 1 10 Procerus Units: [...] which included preparing to see the patient, ieau-su-zseb patient care, completing clinical documentation, obtaining and/or reviewing separately obtained history, counseling and educating the patient/family/caregiver, and ordering medications, tests, or procedures. Svitlana Mayfield APRN.NIC documented in [facility]Ge[facility]02-21-2025 Instructions* Patient Instructions* Svitlana Mayfield APRN.CNP [...] your next Botox Injection documented in this encounterGe[facility] Hospital02-21-2025 NoteHNO ID: [id number] Author: SVITLANA MAYFIELD APRN.CNP Service: ? Author [...] for migraine Informed Consent Consent Obtained: Written [place] Protocol A moment to CARE was completed [...] applicable Written Consent Obtained: Written LOT #: [id number] Expiration Date: Month: Year: 2026 Second vial: LOT #: [id number] Expiration Date: Month: Year: 2026 Injection Sites Left (Units) Left (Sites) Right (Units) Right (Sites) TOTAL (Units) House Wrecker 5 1 5 1 10 Procerus Units: [...] no evidence of procedural (more content not included)...[id number] History of Present illness Narrative* Alejandro Villar MD, PhD - 01/04/2025 2:00 PM EST [facility] Patient Name: Cassi Rodrigez Date of : 1950 ESTABLISHED EPILEPSY CLINIC NOTE 01/04/2025 2:00 PM Reason for Visit: Follow Up Clinical Summary: Ms. Rodrigez is a 74 year old right-handed female seen in [facility]. 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 -Vocation: -Education: -Cigarette, [...] which included: preparing to see the patient seif-ic-kteo patient care completing clinical documentation obtaining and/or reviewing separately obtained history counseling and educating the patient/family/caregiver ordering medications, tests, or procedures independently interpreting results (not separately reported) communicating results to the patient/family/caregiver Alejandro Villar MD, PhD cc: Primary Care Physician: Broderick Howard, DO [address] [address] Referring: Patient: Ms. Cassi Rodrigez [id number] [id number] documented in this encounterGe[facility] Hospital02-20-2025 NoteHNO ID: [id number] Author: ALEJANDRO VILLAR MD, PhD Service: ? Author Type: Physician Type: Progress Notes Filed: 01/04/2025 14:17 Note Text: [facility] Patient Name: Cassi Rodrigez Date of : 1950 ESTABLISHED EPILEPSY CLINIC NOTE 01/04/2025 2:00 PM Reason for Visit: Follow Up Clinical Summary: Ms. Rodrigez is a 74 year old right-handed female seen in [facility]. 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 Requested Prescriptions Signed Prescriptions Disp Refills zonisamide (ZONEGRAN) 100 mg capsule 270 capsule 1 Sig: Take 3 capsules by mouth daily at bedtime. Authorizing Provider: ALEXI COLINDRES PA-C [facility]01-27-2025 Miscellaneous Notes* Telephone Encounter - Alexi Colindres PA-C - 12/11/2024 1:30 PM EST The following approved medication requests have been transmitted electronically. Requested Prescriptions Signed Prescriptions Disp Refills zonisamide (ZONEGRAN) 100 mg capsule 270 capsule 1 Sig: Take 3 capsules by mouth daily at bedtime. Authorizing Provider: ALEXI COLINDRES PA-C * Telephone Encounter - Doyle MITCHELL Maranda - 12/11/2024 10:27 AM EST Prescription Refill: Requested by: patient Please E-Scribe Caller Contact Number: [phone] (home) Pharmacy Name: [facility] Pharmacy Number: [id number] Generic/ brand: generic 30 or 90 day supply requested: 90 Last appointment: 06/29/24 Next Appointment: 01/04/[address] guido Rodrigez [id number] [address] [place] [address] documented in this encounterGeorgetown [facility]al Hospital01-27-2025 Telephone encounter Note * Telephone Encounter - Maranda Moreno - 12/11/2024 10:27 AM EST Prescription Refill: Requested by: patient Please E-Scribe Caller Contact Number: [phone] (home) Pharmacy Name: [facility] Pharmacy Number: [phone] Generic/ brand: generic 30 or 90 day supply requested: 90 Last appointment: 06/29/24 Next Appointment: 01/04/[address] villar Cassi Gabriel Elia [id number] [address] [facility] [address] [facility]01-15-2025 History of Present illness Narrative* Aftab Dey DO - 11/29/2024 2:00 PM EST Images from [...] DAY DIRECTED ergocalciferol (Vitamin D2) 1.25 MG (14895 UT) capsule TAKE 1 CAPSULE BY MOUTH [...] CUFF REPAIR Left 2021 LT RCR-DR VELASQUEZ WHIPPLE PROCEDURE W/ LAPAROSCOPY 2010 FOR PACREATIC CANCER FAMILY HISTORY Family History Problem Relation Name Age of Onset Liver cancer Father Scottie Andujar Cancer Father Scottie Andujar Breast cancer Sister Cancer Brother Federico Bond[place]isr[place] Cancer Sister Hugo Tobar REVIEW OF SYMPTOMS: [...] I'll see her PRN documented in this encounterChristian [id number] Radiology [facility] Main [place] [address] [place] [address] CT Scan Report Signed Patient: Cassi Rodrigez MR#: [id number] : 1950 Acct:[id number] Age/Sex: 74 / F ADM Date: 5 Loc: ER Room: Type: [facility] ER Attending Dr: Copies to: Kristel [...] Arnel Simon M.D.11/24/2024 3:48 PM Dictation Location: RADIO-PC-17 Transcribed By: TONO 11/24/24 154 Dictated By: Arnel Simon II, MD 11/24/24 1538 Signed By: 11/24/24 1548 [facility] Work Phone: 1(706) 930-998001-10-2025 Evaluation note* Diagnosis Onset Date Resolution Status [...] vein thrombosis) acute February 21, 2025 1:49pm [facility] Work Phone: 1(724) 437-924701-10-2025 Evaluation note* Diagnosis Onset Date Resolution Status Admit Date Adverse effect of anticoagul ant antagonists, vitamin k and other coagulants acute November 24 10:35am Cellulitis acute November 24, 2024 10:35am Abscess of abdominal wall deleted November 24, 2024 10:35am Adverse effect of anticoagul ant antagonists, vitamin k and other coagulants acute November 28 10:54am Cellulitis acute November 28, 2024 10:54am Abdominal hematoma inactive Novuar y 2024 10:54am Adverse effect of anticoagul [...] through stage 4 chronic ki acute February 22 025 10:30am Secondary hyperparathyroidism acute February 22, 2025 10:30am [facility] Work Phone: 1(722) 716-378612-30-2024 NoteProgress Note-Physician Patient: CASSI RODRIGEZ Age: 74 [...] to Ambulatory Surgery Unit, and To home ).[facility] HospitalComment on above:Result Comment: Electronically Signed By: Sunny Ramirez Jr., DO\.br\Date and Time Signed: 11/13/24 07:01 [id number] NoteDischarge Summary Patient: CASSI RODRIGEZ Age: 74 [...] Last Charted Temp Axillary 36.4 DegC (NOV 03:) Heart Rate Monitored L 58 bpm (NOV 03:) SBP 113 mmHg (NOV 03:) DBP 68 mmHg (NOV 03)[facility] HospitalComment on above:Result Comment: Electronically Signed By: Ap PAUL, Shashi Barragan\.br\Date and Time Signed: 11/03/24 18:13 [id number] Hospital Discharge instructions Patient Education 11/03/2024 14:55:59 [...] sitting in a recliner chair. Only take dqpt-qph-jdgpphc or prescription medicines for pain, discomfort, or [...] 10/05/2005 Document Revised: 01/23/2013 Document Reviewed: 11/01/2006 [employer] Patient Information 2013 [employer]. Follow Up Care 10/19/2024 10:52:05 With:BRODERICK HOWARD Address: [address] [place] [address]- Business (1) When: Unknown Comments:No need to see PCP at this time unless symptoms worsen. With:Shashi De Souza Address: [address] [facility], [address] [place] [phone] Business (1) When: Unknown Comments:f/u3wks ok shower and remove dressing uuobv62nbf no lift>5lbs keep incis dry clean. restart coumadin 3 days after surgery. 11-05-24Wednesday. [facility] [id number] NotePatient Education - Text Lumbar Laminectomy Care [...] in a recliner chair. ? Only take sryj-iyb-wmmpxht or prescription medicines for pain, discomfort, or [...] Document Reviewed: 11/01/2006 ExitCare? Patient Information ?2012 [employer].[facility] 11-03-2024 Evaluation + Plan noteExtracted from: [...] history of other venous thrombosis and embolism intermodal customer service (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 of anticoagulants Epilepsy, unspecified, not [...] today d/w rn Extracted from: Title:APSO Note Author:Kerenannette LUCERO, Drea Hogan Date:11/03/24 1. Lumbar stenosis (M48.061: Spinal stenosis, [...] hold for neuro spine surgery, patient has qyhqf-zkp-pusf compression hose and SCDs Enoxaparin 40 mg daily per surgeon for now 5. Anticoagulated (Z79.01: [employer] customer service (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 of anticoagulants) Warfarin prior to [...] Extracted from: Title:Consult Note Author:Santosh LUCERO, Júnior Hogan Date:11/02/24 1. Lumbar stenosis (M48.061: Spinal stenosis, [...] hold for neuro spine surgery, patient has owsyx-uij-anlo compression hose and SCDs Enoxaparin 40 mg daily per surgeon for now 5. Anticoagulated (Z79.01: [employer]modal customer service (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 of anticoagulants) Warfarin prior to [...] Pre-operative Note 2022 Author:Jaun Mccollum Date:11/02/24 Plan [place] [employer] Anesthesiologists (ASA) physical status classification: Class III. Anesthetic Preoperative Plan: Anesthesia General. Diagnostic Tests Pending * Calcium Level Ionized 11/03/24 [facility] 12-20-2024 NoteProgress Note-Physician Basic Information 74-year-old [...] hold for neuro spine surgery, patient has vvwbh-lin-koin compression hose and SCDs Enoxaparin 40 mg daily per surgeon for now 5. Anticoagulated (Z79.01: [employer] customer service (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 of anticoagulants) Warfarin prior to [...] % (11/03/24 05:56:00) MCV (more content not included)...[facility] HospitalComment on above: Result Comment: Electronically Signed By: Katarzyna Frost CNP\.br\Date and Time Signed: 11/03/24 11:08 EST\.br\Electronically Co-Signed By: Dar NUNEZ MD\.br\Date and Time Co-Signed: 11/03/24 12:02 [id number] Note Interdisciplinary Note - PT PT Evaluation done this date. Pt. with on AM-PAC this date. She is safe and independent with all functional activities at this time. No further PT needs.[facility]12-19-2024 NoteConsultation Note Reason for Consultation Medical [...] hold for neuro spine surgery, patient has hnlpb-afw-ynmz compression hose and SCDs Enoxaparin 40 mg [...] tab(s), Oral, Daily carvedil (more content not included)...[facility] HospitalComment on above:Result Comment: Electronically Signed By: Katarzyna Frost CNP\.br\Date and Time Signed: 11/02/24 18:33 EST\.br\Electronically Co-Signed By: Dar NUNEZ MD\.br\Date and Time Co-Signed: 11/02/24 18:54 [id number] NoteProgress Note-Nurse 1615- Pacemaker to right chest interrogated in PACU at this time with [employer] device. Device stated it transmitted properly.[facility] 11-02-2024 NoteProgress Note-Physician Patient: CASSI RODRIGEZ [...] All Problems Acute asthma / SNOMED CT 9109713872 / Confirmed Bradycardia / SNOMED CT 08949037 / Confirmed Cardiac pacemaker / SNOMED CT 6807954488 / Confirmed Epilepsy / SNOMED CT 197946585 / Confirmed High blood pressure / SNOMED CT 7058145671 / Confirmed History of DVT of lower extremity / SNOMED CT 8782346613 / Confirmed Migraines / SNOMED CT 45174307 / Confirmed Obstructive sleep apnea / SNOMED CT 663681633 / Confirmed Pancreatic cancer / SNOMED CT 941124332 / Confirmed Presence of IVC filter / SNOMED CT 5851392501 / Confirmed, Active Problems (10) Acute asthma Bradycardia Cardiac pacemaker Epilepsy High blood pressure History of DVT of lower extremity Migraines Obstructive sleep apnea Pancreatic cancer Presence of IVC filter , anesthesia summary- obesity, HTN, godfrey/PM, SHELL, mild asthma, remote treatment for pancreatic cancer, controlled siezures, RI, controlld GERD, hx DVT s/p IVCF on chronic anticoagulation, c-spine dz Histori (more content not included)...[facility] HospitalComment on above:Result Comment: Electronically Signed By: Thomas PAUL, Jaun Reese\.br\Date and Time Signed: 11/02/24 13:45 [id number] Evaluation note* Diagnosis Onset Date Resolution Status Admit Date Chronic kidney disease acute De cem2023 8:49am Gastroesophageal reflux disease with esophagitis without hemorrhage acute October 8:49am History of DVT (deep vein thrombosis) acute October 27 024 8:49am Hypertension acute October 8:49am Lumbar stenosis with neurogenic claudication acute October 27, 2024 8:49am Major depression acute October 27, 2024 8:49am Preop exam for internal medicine noneactive October 27 024 8:49am Adverse effect of anticoagulant antagonists, vitamin k and other coagulants acute J anuary 2024 1:36pm Bruising at injection site acute November 17, 2024 1:36pm Cellulitis acute November 17 025 1:36pm Adverse effect of anticoagulant antagonists, vitamin k and other coagulants acute J anuary 2024 10:35am Cellulitis acute November 24, 2024 10:35am Abscess of abdominal wall deleted November 24, 2024 10:35am Adverse effect of anticoagulant antagonists, vitamin k and other coagulants acute J anuary 2024 10:54am Cellulitis acute November 28, 2024 10:54am Abdominal hematoma inactive Colinr y 2024 10:54am Adverse effect of anticoagulant antagonists, vitamin k and other coagulants acute J anuary 2024 9:51am Cellulitis acute December 08, 2024 9:51am [facility] Work Phone: 1(774) 991-734210-22-2024 NoteHNO ID: [id number] Author: RANDA REILLY MD Service: ? Author [...] Injection Sites Muscle Fixed Site/Fixed Dose Bilat House Wrecker 20 U divided in 2 sites Procerus [...] Total Units wasted: 0 Randa Reilly MD [facility] Neurological [facility]10-22-2024 Procedure note* Randa Reilly MD - [...] Injection Sites Muscle Fixed Site/Fixed Dose Bilat House Wrecker 20 U divided in 2 sites Procerus [...] Total Units wasted: 0 Randa Reilly MD [facility]10-22-2024 Procedure note* Randa Reilly MD - [...] Injection Sites Muscle Fixed Site/Fixed Dose Bilat House Wrecker 20 U divided in 2 sites Procerus [...] Total Units wasted: 0 Randa Reilly MD [facility]rological [facility] documented in this encounterGeorgetown Behavioral Hospital10-22-2024 NoteHNO ID: [id number] Author: RANDA REILLY MD Service: ? Author Type: Physician Type: Progress Notes Filed: 09/05/2024 13:54 Note Text: PROGRESS NOTE- [facility]IC[facility] SERVICE DATE: September 05, 2024 Location: [facility] Participants: patient, and provider HPI: [...] 3.Referral to sleep medicine Randa Reilly MD [facility]10-22-2024 History of Present illness Narrative* Randa Reilly MD - 09/05/2024 1:49 PM EDT PROGRESS NOTE- [facility]AC[facility] MEDICINE SERVICE DATE: September 05, 2024 Location: [facility] Participants: patient, and provider HPI: [...] 3.Referral to sleep medicine Randa Reilly MD [facility] Neurological [facility] documented in this encounterGeorgetown Behavioral Hospital10-22-2024 Nurse Note* Davina Brennan RN - [...] Jewell RN Botox, 2 vials: Lot # [id number] Exp 10/2026 Lot # [id number] Exp 10/[address] Reilly to administer and verified order. [facility]10-22-2024 Nurse Note* Davina Brennan RN - [...] Jewell RN Botox, 2 vials: Lot # [id number] Exp 10/2026 Lot # [id number] Exp 10/[address] Reilly to administer and verified order. documented in this encounterGeorgetown Behavioral Hospital10-17-2024 NoteHNO ID: [id number] Author: KITTY VALENTE MD Service: ? Author Type: Physician Type: Progress Notes Filed: 09/02/2024 00:42 Note Text: Heart and Vascular [facility] Department of Cardiovascular Medicine SECTION OF CARDIAC PACING and ELECTROPHYSIOLOGY OUTPATIENT VISIT DATE NASRIN July 23, 2022 August 31, 2024 OUTPATIENT VISIT TYPE ESTABLISHED PRIMARY CARE PHYSICIAN: Broderick Howard MD ([facility]) [address] [place] [address] CHIEF COMPLAINT: Pacemaker management HISTORY OF PRESENT [...] antiepileptic Rx - well (more content not included)...[facility] 08-31-2024 History of Present illness Narrative* Kitty Valente MD - 08/31/2024 10:04 AM EDT Images from the original note were not included. [facility] Department of Cardiovascular Medicine SECTION OF CARDIAC PACING and ELECTROPHYSIOLOGY OUTPATIENT VISIT DATE NASRIN July 23, 2022 August 31, 2024 OUTPATIENT VISIT TYPE ESTABLISHED PRIMARY CARE PHYSICIAN: Broderick Howard MD ([facility]) [address] [place] [address] CHIEF COMPLAINT: Pacemaker management HISTORY OF PRESENT [...] of Cardiovascular Medicine Heart, Vascular and Thoracic [facility] Office Office Pager [phone] August 31, 2024 10:18 AM documented in this encounterGeorgetown Behavioral Hospital10-16-2024 Evaluation note* Diagnosis Onset Date Resolution [...] with esophagitis without hemorrhage acute October 27, 2 024 8:49am History of DVT (deep vein [...] 10:54am Cellulitis acute November 28, 2024 10:54am [facility] Work Phone: 1(239) 559-964610-15-2024 Evaluation note* Diagnosis Onset Date Resolution Status [...] medicine non eactive October 27, 2024 8:49am [facility] Work Phone: 1(700) 145-635710-15-2024 Evaluation note* Diagnosis Onset Date Resolution Status [...] 10:35am Cellulitis acute November 24, 2024 10:35am [facility] Work Phone: 1(466) 693-941408-15-2024 History of Present illness Narrative* Alejandro Villar MD, PhD - 06/29/2024 2:41 PM EDT [facility] Patient Name: Cassi Rodrigez Date of : 1950 ESTABLISHED EPILEPSY CLINIC NOTE 06/29/2024 1:00 PM Reason for Visit: Epilepsy Clinical Summary: Ms. Rodrigez is a 74 year old female [facility] in [facility]. Classification Summary HISTORY OF [...] and s/p lumbar laminectomy in 07/2023. 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 At [facility] in Dec 2023, ZNS was increased [...] which included: preparing to see the patient fwxx-qg-dhra patient care completing clinical documentation obtaining and/or reviewing separately obtained history performing a medically appropriate examination Alejandro Villar MD, PhD cc: Primary Care Physician: Broderick Howard, DO [address] [facility] [address] Referring: Patient: Ms. Cassi Rodrigez [address] [facility] [address] documented in this encounterGeorgetown Behavioral Hospital07-09-2024 Nurse Note* Tomasa Farfan RN - [...] by: Lon Adamsox, 2 vials: Lot # [id number] Exp Lot # [id number] Exp Botox handed to Dr. Reilly to administer and verified order. [facility]07-09-2024 Nurse Note* Tomasa Farfan RN - [...] by: Lon Adamsox, 2 vials: Lot # [id number] Exp Lot # [id number] Exp Botox handed to Dr. Reilly to administer and verified order. documented in this encounterGeorgetown Behavioral Hospital07-09-2024 Procedure note* Randa Reilly MD - 05/23/2024 11:12 AM EDT BOTOX PROCEDURE NOTE Responsible practitioner performing the procedure(s)/treatment(s): Randa Rielly Practitioner obtaining the consent: Randa Reilly Procedure(s)/treatment(s): [...] Injection Sites Muscle Fixed Site/Fixed Dose Bilat House Wrecker 20 U divided in 2 sites Procerus [...] Total Units wasted: 0 Randa Reilly MD [facility] Neurological [facility]07-09-2024 Procedure note* Randa Reilly MD - [...] Injection Sites Muscle Fixed Site/Fixed Dose Bilat House Wrecker 20 U divided in 2 sites Procerus [...] wasted: 0 Randa Reilly MD [facility] documented in this encounterGeorgetown Behavioral Hospital05-01-2024 NoteDUAL CHAMBER PACEMAKER REMOTE EVALUATION: PRESENTING [...] under CARDIAC DATA AND REPORT, Scanned Documents section.[id number] History of Present illness Narrative* Randa Reilly MD - 03/07/2024 9:30 AM EDT PROGRESS NOTE- HEADACHE MEDICINE SERVICE DATE: March 07, 2024 Location: [facility] Participants: patient, and provider HPI: [...] I spent at least 50% of the jipe-sa-pvlz time in counseling, explanation of diagnosis, planning of further management, and answering all questions. Randa Reilly MD [facility] Neurological Guys documented in this encounterGeorgetown Behavioral Hospital02-08-2024 Instructions* Patient Instructions* Lauren Otero APRN.CNP - 12/23/2023 9:42 AM EST To schedule with headache clinic (can schedule at [facility]): [phone] documented in this encounterGeorgetown Behavioral Hospital02-08-2024 History of Present illness Narrative* Alejandro Villar MD, PhD - 12/23/2023 9:00 AM EST [facility] EPILEPSY CENTER CHIEF COMPLAINT: Patient presents [...] by Lauren Otero CNP & Dr. Alejandro Vilalr on 09/10/2022. Interval update 12/23/2023: Patient reports [...] She was referred to the headacheclinic at [facility] in the past but at this [...] There is no focal weakness. PREVIOUS EVALUATIONS: [facility], 05/2015: Right Temporal Epilepsy Seizures: Aura [...] know if she decides to pursue at [facility] - she needs for spine doctor, plans to talk to PCP first but will let us know if she needs referralto someone here at [facility] - ENT referral as needed for [...] MD, PhD in collaboration with Lauren Otero APRN.DEADENER December 23, 2023 documented in this encounterCleveland [id number] Evaluation note* Encounter Date Diagnosis Assessment Notes Treatment Notes Treatment Clinical Notes Nov, Acute non-recurrent maxillary sinusitis (ICD-10 - J01.00) Instructed to use Robitussin or Mucinex for cough, saline or Flonase NS for congestion, Tylenol for pain and fever. Nov, Primary hypertension (ICD-10 - I10) Increased risk for more serious, prolonged illness. [employer] Other [id number] Miscellaneous Notes* Telephone Encounter - Mirian Bell APRN.CNP - 09/13/2023 1:53 PM EDT Thank you reviewed scan documents. Mirian Bell APRN.CNP * Telephone Encounter - Brenda Hodges RN - 09/13/2023 7:58 AM EDT Received medical records from [facility] and scanned into chart for review. documented in this encounterGeorgetown Behavioral Hospital10-30-2023 Miscellaneous Notes* Telephone Encounter - Daniel [...] Please E-Scribe Caller Contact Number: Pharmacy Name: [facility] Pharmacy Number: [phone] Generic/ brand: 30 or 90 day supply requested: 90 Last appointment: 09/10/22 Next Appointment: 12/09/[address] Villar documented in this encounterGeorgetown Behavioral Hospital10-25-2023 Instructions* Patient Instructions* Mirian Bell APRN.CNP - 09/08/2023 3:21 PM EDT Please schedule for device check & in one year Please have patient sign release of medical labs from [facility] had labs last month documented in this encounterGeorgetown Behavioral Hospital10-25-2023 History of Present illness Narrative* Mirian Bell APRN.CNP - 09/08/2023 2:30 PM EDT Images from the original note were not included. [facility] Department of Cardiovascular Medicine SECTION OF CARDIAC PACING and ELECTROPHYSIOLOGY OUTPATIENT VISIT DATE September 08, 2023 OUTPATIENT VISIT TYPE ESTABLISHED PRIMARY CARE PHYSICIAN: Broderick Howard (Zack) [address] [place] [address] CHIEF COMPLAINT: follow up device management HISTORY [...] 09-08-2023 Dual chambered pacer EVALUATION PRESENTS FOR: DEADENER visit PRESENTING EGM: AP/VS UNDERLYING RHYTHM: BATTERY [...] 4. Annual labs, I will obtain from [facility] she had last month Follow up appointment: Dr. Walters & device check in one year I spent 25 to 30 minutes in the visit, with more than 50% of the total iwzd-bu-kadv time of the visit in counseling / coordination of care. CONTACT INFORMATION: Mirian Bell APRN.CNP, 09/08/23 [facility] Second Floor [address] [facility] [place] [address] documented in this encounterGeorgetown Behavioral Hospital10-11-2023 Evaluation note* Encounter Date Diagnosis Assessment Notes Treatment Notes Treatment Clinical Notes Aug, Lumbar stenosis with neurogenic claudication (ICD-10 - M48.062) [employer] Other 10-02-2023 Evaluation note* Encounter Date Diagnosis Assessment Notes Treatment Notes Treatment Clinical Notes Aug, Lumbar stenosis with neurogenic claudication (ICD-10 - M48.062) [facility] [employer] Other 09-28-2023 Evaluation note* Encounter Date Diagnosis Assessment Notes Treatment Notes Treatment Clinical Notes Jul, Lumbar stenosis with neurogenic claudication (ICD-10 - M48.062) [facility] [employer] Other 09-20-2023 Progress note Author Niki Weeks [facility] August 04, 2023 7:57am Note Date/Time August 04, 2023 7:57am [facility] ENTER [address] [place] [address] Neurosurgery Progress Note Signed Patient: Cassi Rodrigez MR#: [id number] : 1950 Acct:[id number] Age/Sex: 73 / F Adm Date: 3 Loc: 4N Room: [address] [place] [address] Type: [facility] Attending Dr: Niki Weeks MD Copies to: [...] % (Auto) 91.6, Lymph % (Auto) 4.4, [place] % (Auto) 4.0, Eos % (Auto) 0.0, Baso % (Auto) 0.0, Nucleat RBC Rel Count 0.1, Neut # (Auto) 10.4 H, Lymph #(Auto) 0.5 L, [place] # (Auto) 0.5, Eos # (Auto) 0.0, [...] signed by Niki Weeks MD> 08/04/23 [address] [facility] Work Phone: 1(483) 402-221808-23-2023 Evaluation note* Encounter Date Diagnosis Assessment Notes Treatment Notes Treatment Clinical Notes Jun, Lumbar stenosis with neurogenic claudication (ICD-10 - M48.062) [employer] Other 06-22-2023 Evaluation note* Encounter Date Diagnosis [...] will continue with this therapy without change. [employer] Other 06-19-2023 Evaluation note* Encounter Date Diagnosis Assessment Notes Treatment Notes Treatment Clinical Notes Apr, Lumbosacral spondylosis with radiculopathy (ICD-10 - M47.27) [employer] Other 06-19-2023 Evaluation note* Encounter Date Diagnosis [...] until MRI completed MRI being rescheduled for [facility] due to PM Apr, Stage 3b chronic kidney disease (ICD-10 - N18.32) The patient is instructed on adequate control of hypertension and diabetes, if appropriate. They are also educated on the associated risks of NSAIDs and PPI use with kidney disease. They were instructed on adequate fluid balance and to avoid dehydration. Apr, History of lumbar fusion (ICD-10 - Z98.1) [employer] Other 05-15-2023 Evaluation note* Encounter Date Diagnosis Assessment Notes Treatment Notes Treatment Clinical Notes March, Lumbosacral spondylosis with radiculopathy (ICD-10 - M47.27) [employer] Other 05-11-2023 Evaluation note* Encounter Date Diagnosis [...] use, the patient reduces the risk for TN, CVA, HTN, cardiac dysrhythmias and sudden cardiac [...] Other Stable w/o breakthrough Sz. Secondary to LEAD CUSTOMER SERVICE REPRESENTATIVE surgery Continue surveillance w/ US [employer] Other 2023 Evaluation note* Encounter Date Diagnosis Assessment Notes Treatment Notes Treatment Clinical Notes Jan, Nausea (ICD-10 - R11.0) [employer] Other 02-23-2023 Evaluation note* Encounter Date Diagnosis Assessment Notes Treatment Notes Treatment Clinical Notes Dec, Nausea (ICD-10 - R11.0) Increase Amitriptyline to 15mg at bedtime Dec, Constipation (ICD-10 - K59.00) Start Linzess 72mcg daily Pt to call if symptoms worsen or return Follow up in 4 months [employer] Other 01-11-2023 Evaluation note* Encounter Date Diagnosis [...] use, the patient reduces the risk for TN, CVA, HTN, cardiac dysrhythmias and sudden cardiac [...] to trial Amitiza and discuss w/ GI [employer] Other 10-27-2022 History of Present illness Narrative* Lauren Otero APRN.NIC - 09/10/2022 1:53 PM EDT [facility] EPILEPSY CENTER CHIEF COMPLAINT: Patient presents [...] She was referred to the headacheclinic at [facility] in the past but at this [...] There is no focal weakness. PREVIOUS EVALUATIONS: [facility], 05/2015: Right Temporal Epilepsy Seizures: Aura [...] by Dr. Alejandro Villar. [facility] History of Present illness Narrative* Kitty Millard MD - 07/23/2022 10:00 AM EDT Images from the original note were not included. [facility] Department of Cardiovascular Medicine SECTION OF CARDIAC PACING and ELECTROPHYSIOLOGY OUTPATIENT VISIT DATE July 23, 2022 OUTPATIENT VISIT TYPE ESTABLISHED PRIMARY CARE PHYSICIAN: Broderick Howard MD ([facility]) [address] [place] [address] CHIEF COMPLAINT: Pacemaker management HISTORY OF PRESENT [...] Lymph 1.00 - 4.00 k/uL 0.93 (L) [place]% % 7.7 Abs [place] <0.87 k/uL 0.32 Eosin% % 5.3 Abs [...] Kitty Millard MD Electrophysiology [facility] Evaluation note* Encounter Date Diagnosis Assessment Notes Treatment Notes Treatment Clinical Notes Dec, Nausea (ICD-10 - R11.0) PATIENT STATES THAT THIS HAS IMPROVED. PATIENT TO CONTINUE ON THE AMITRIPTYLINE DOSE AT THIS TIME. [employer] Other 03-12-2015 History of Past illness Narrative* Problem Noted Date Resolved Date Seizure 01/24/2015 06/21/2018 documented as of this encounter (statuses as of 07/23/2022) [address]12-2015 History of Past illness Narrative* Problem Noted Date Resolved Date Seizure 01/24/2015 06/21/2018 documented as of this encounter (statuses as of 08/26/2022) [address]-2015 History of Past illness Narrative* Problem Noted Date Resolved Date Seizure 01/24/2015 06/21/2018 documented as of this encounter (statuses as of 09/10/2022) [address]-2015 History of Past illness Narrative* Problem Noted Date Resolved Date Seizure 01/24/2015 06/21/2018 documented as of this encounter (statuses as of 11/26/2022) [address]-2015 History of Past illness Narrative* Problem Noted Date Resolved Date Seizure 01/24/2015 06/21/2018 documented as of this encounter (statuses as of 02/25/2023) [address]2015 History of Past illness Narrative* Problem Noted Date Diagnosed Date Resolved Date Seizure 01/24/2015 06/21/2018 documented as of this encounter (statuses as of 06/17/2023) [address]2015 History of Past illness Narrative* Problem Noted Date Diagnosed Date Resolved Date Seizure 01/24/2015 06/21/2018 documented as of this encounter (statuses as of 09/08/2023) [address]-2015 History of Past illness Narrative* Problem Noted Date Diagnosed Date Resolved Date Seizure 01/24/2015 06/21/2018 documented as of this encounter (statuses as of 09/09/2023) [address]2015 History of Past illness Narrative* Problem Noted Date Diagnosed Date Resolved Date Seizure 01/24/2015 06/21/2018 documented as of this encounter (statuses as of 09/14/2023) [address]2015 History of Past illness Narrative* Problem Noted Date Diagnosed Date Resolved Date Seizure 01/24/2015 06/21/2018 documented as of this encounter (statuses as of 09/14/2023) [address]2015 History of Past illness Narrative* Problem Noted Date Diagnosed Date Resolved Date Seizure 01/24/2015 06/21/2018 documented as of this encounter (statuses as of 12/23/2023) [facility] Author Niki Weeks [facility] August 05, 2023 8:09am Note Date/Time August 05, 2023 8:09am [facility] EN[facility] [address] [place] [address] Discharge Summary Signed Patient: Cassi Rodrigez MR#: [id number] : 1950 Acct:[id number] Age/Sex: 73 / F Adm Date: 3 Loc: Room: [address] [place] [address]: Niki Weeks MD Copies to: [...] % (Auto) 77.1, Lymph % (Auto) 11.8, [place] % (Auto) 9.2, Eos % (Auto) 1.7, Baso % (Auto) 0.2, Nucleat RBC Rel Count 0.4, Neut # (Auto) 5.6, Lymph # (Auto) 0.9 L, [place] # (Auto) 0.7, Eos # (Auto) 0.1, [...] Appointments Appointment Date:10/25/2024 10:30:00 AM Scheduled Provider: Location:[facility] Appointment Type:Surgical PAT FT Appointment Date:11/02/2024 12:30:00 PM Scheduled Provider: Location:[facility] Appointment Type:Surgery FT [facility] Evaluation note* Diagnosis Chronic fatigue- Primary Other malaise and fatigue [facility] Diagnosis Partial epilepsy with impairment of consciousness, intractable (HCC) Localization-related (focal) (partial) epilepsy and epileptic syndromes with complex partial seizures, with intractable epilepsy [facility] assessment information [facility] Work Phone: Evaluation noteNo InformationNoperry [facility] [employer] Other evaluation note* Diagnosis Onset Date Resolution Status Lumbar stenosis with neurogenic claudication acute [facility] Work Phone: Evaluation note* Diagnosis Sinus node dysfunction (HCC)- Primary Sinoatrial node dysfunction Cardiac pacemaker in situ Bradycardia Other specified cardiac dysrhythmias [facility] Diagnosis Partial epilepsy with impairment of consciousness, intractable (HCC) Localization-related (focal) (partial) epilepsy and epileptic syndromes with complex partial seizures, with intractable epilepsy [facility] Diagnosis Pacemaker [Z95.0]- Primary Cardiac pacemaker in situ [facility] Diagnosis Intractable 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 aura and without status migrainosus- Primary Chronic migraine without aura, with intractable migraine, so stated, without mention of status migrainosus [facility] Diagnosis Intractable 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 aura and without status migrainosus- Primary Chronic migraine without aura, with intractable migraine, so stated, without mention of status migrainosus Cervicalgia SHELL (obstructive sleep apnea) Obstructive sleep apnea (adult) (pediatric) [facility] Diagnosis Onset Date Resolution Status Hypertension acute Lumbar stenosis with neurogenic claudication acute [facility] Work Phone: Evaluation note* Diagnosis Onset Date Resolution Status Hypertension acute Lumbar stenosis with neurogenic claudication acute Age-related osteoporosis wit hout current pathological fracture acute Chronic kidney disease acute Hypertension acute Lumbosacral spondylosis with radiculopathy acute Obstructive sleep apnea acut e [facility] Work Phone: Evaluation note* Diagnosis Intractable 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 aura and without status migrainosus- Primary Chronic migraine without aura, with intractable migraine, so stated, without mention of status migrainosus [facility] Diagnosis Onset Date Resolution Status Age-related osteoporosis wit hout current pathological fracture acute Chronic kidney disease acute Hypertension acute Lumbosacral spondylosis with radiculopathy acute Obstructive sleep apnea acut e Arthropathy of right hip acu te Greater trochanteric bursitis of both hips acute History of lumbar surgery [place] Pain of both sacroiliac joints acute Select [...] hips acute History of lumbar surgery [place] Pain of both sacroiliac joints acute Anemia of renal disease acut e Chronic kidney disease acute [id number] acute Leukopenia acute Pancreatic cancer acute Secondary hyperparathyroidism acute Vitamin D deficiency acute [facility] Work Phone: Evaluation note* Diagnosis Onset Date Resolution Status Age-related osteoporosis wit hout current pathological fracture acute Chronic kidney disease acute Hypertension acute Lumbosacral spondylosis with radiculopathy acute Obstructive sleep apnea acut e Arthropathy of right hip acu te Greater trochanteric bursitis of both hips acute History of lumbar surgery [place] Pain of both sacroiliac joints acute Anemia of renal disease acut e CKD (chronic kidney disease) stage 4, GFR 15-29 ml/min acute [id number] acute Leukopenia acute Secondary hyperparathyroidism acute Age-related osteoporosis wit hout current pathological fracture acute Chronic kidney disease acute Gastroesophageal reflux dise ase with esophagitis without hemorrhage acute History of pancreatic cancer acute Hypertension acute Lumbar stenosis with neurogenic claudication acute Major depression acute Medicare annual wellness visit, subsequent noneactive Screening mammogram for breast cancer noneactive [facility] Work Phone: Evaluation note* Diagnosis Focal epilepsy with impairment of consciousness, intractable (HCC)- Primary Localization-related (focal) (partial) epilepsy and epileptic syndromes with simple partial seizures, with intractable epilepsy Partial epilepsy with impairment of consciousness, intractable (HCC) Localization-related (focal) (partial) epilepsy and epileptic syndromes with complex partial seizures, with intractable epilepsy [facility] encounter [facility] Diagnosis Onset Date Resolution Status Arthropathy of right hip acu te Greater trochanteric bursitis of both hips acute History of lumbar surgery [place] Pain of both sacroiliac joints acute Anemia of renal disease acut e CKD (chronic kidney disease) stage 4, GFR 15-29 ml/min acute [id number] acute Leukopenia acute Secondary hyperparathyroidism acute Age-related [...] disease) stage 4, GFR 15-29 ml/min acute [id number] acute Leukopenia acute Secondary hyperparathyroidism acute Age-related [...] disease) acute Nausea acute Pancreatic cancer acute [facility] Work Phone: Evaluation note* Diagnosis Sinus node dysfunction (HCC)- Primary Sinoatrial node dysfunction Cardiac pacemaker in situ Bradycardia Other specified cardiac dysrhythmias documented in this encounter [facility]* Diagnosis Intractable 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 aura and without status migrainosus- Primary Chronic migraine without aura, with intractable migraine, so stated, without mention of status migrainosus documented [facility] encounter [facility]* Diagnosis Onset Date Resolution Status [...] disease) stage 4, GFR 15-29 ml/min acute [id number] acute Secondary hyperparathyroidism acute [facility] Work Phone: Evaluation note* Diagnosis Abdominal wall hematoma, initial encounter- Primary documented in this encounter [facility] note* Diagnosis Localization-related (focal) (partial) symptomatic epilepsy and epileptic syndromes with complex partial seizures, intractable, without status epilepticus (HCC) documented in this encounter [facility]* Diagnosis Abdominal wall hematoma, subsequent encounter- Primary [facility] Localization-related (focal) (partial) symptomatic epilepsy and epileptic syndromes with complex partial seizures, intractable, without status epilepticus (HCC)- Primary Memory loss documented in this encounter [facility]* Diagnosis Intractable 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 aura and without status migrainosus- Primary Chronic migraine without aura, with intractable migraine, so stated, without mention of status migrainosus documented [facility] this encounter [facility]* Diagnosis MCI (mild cognitive impairment)- Primary Mild cognitive impairment, so stated documented [facility] encounter [facility]* Diagnosis Intractable 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 aura and without status migrainosus- Primary Chronic migraine without aura, with intractable migraine, so stated, without mention of status migrainosus documented [facility] this encounter [facility]* Diagnosis Chronic pain syndrome- Primary MCI (mild cognitive impairment) Mild cognitive impairment, so stated Sinus node dysfunction (HCC) Sinoatrial node dysfunction Obesity, Class II, BMI 35-39.9 Obesity, unspecified documented [facility] this encounter [facility]* Diagnosis Onset Date Resolution Status Admit [...] david st cancer noneactive July 02 2:50pm [facility] Work Phone: Evaluation note* Diagnosis Intractable 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 aura and without status migrainosus- Primary Chronic migraine without aura, with intractable migraine, so stated, without mention of status migrainosus documented in this encounter [facility] Hospital[facility] Narrative - Reported* Type Description Date Surgical History back surgery-2 Surgical History cervical fusion Surgical History cholecystectomy Surgical History whipple procedure 2010 Surgical History appendectomy Surgical History hammer toe Surgical History rotator cuff-left Surgical History temporal lumpectomy Hospitalization History see surgical hx [employer] Other History general Narrative - Reported* Type [...] temporal lumpectomy Hospitalization History see surgical hx [employer] Other History general Narrative - Reported* Type [...] Essential hypertension Medical History Current use of ferry terminal agent anticoa gulation Medical History History of pancreatic [...] Port removal Hospitalization History see surgical hx [employer] Other Hiswqei general Narrative - Reported* Type Description Date [...] L4-5 07/2023 Hospitalization History see surgical hx [employer] Other Hospital course Narrative No data available for this section [facility] Hospital Discharge instructions Additional Instructions Eat a well balanced dietSelect Medical [facility] Work Phone: Hospital Discharge instructionsAmbulatory Orders* Referral to Orthopedic Surgery Location: None [facility] Work Phone: Hospital Discharge instructions No data available for this section [facility] Hospital Discharge instructions Additional Instructions As [...] 8:00am Note Date/Time August 05, 2023 8:00am [facility] [address] [place] [address] Neurosurgery Progress Note Signed Patient: Cassi Rodrigez MR#: [id number] : 1950 Acct:[id number] Age/Sex: 73 / F Adm Date: 3 Loc: 4N Room: [address] [place] [address] Type: REG SDC Attending Dr: Niki Weeks [...] % (Auto) 77.1, Lymph % (Auto) 11.8, [place] % (Auto) 9.2, Eos % (Auto) 1.7, Baso % (Auto) 0.2, Nucleat RBC Rel Count 0.4, Neut # (Auto) 5.6, Lymph # (Auto) 0.9 L, [place] # (Auto) 0.7, Eos # (Auto) 0.1, [...] note No data available for this section [facility] Reason for referral (narrative)* Outpatient Procedure (Routine) - Closed Specialty Diagnoses / Procedures Referred By Contac t Referred To Contact [facility] [place] Diagnoses Chronic fatigue Procedures ECG COMPLETE ECG ROUTINE ECG W/LEAST 12 LDS W/I&[place] [address] [place] [address] [facility] [address] [place] [address] Referral ID Status Reason Start Date Expiration Date V isits Requested Visits Authorized [id number] Closed Auto-Generate d Referral 07/23/2022 07/23/2023 1 1 [facility] for referral (narrative)* Outpatient Procedure (Routine) - Pending Review Specialty Diagnoses / Procedures Referred By Contac t Referred To Contact [facility] Diagnoses Sinus node dysfunction (HCC) Cardiac pacemaker in situ Bradycardia Procedures ECG COMPLETE ECG ROUTINE ECG W/LEAST 12 LDS W/I&R Mirian Bell APRN.CNP [address] [place] [address] [facility] [address] [place] [address] Referral ID Status Reason Start Date Expiration Date Visits Requested Visits Authorized [id number] Pending Review Auto-Generat ed Referral 3 09/07/2024 1 1 [facility] for referral (narrative)* Outpatient Procedure (Routine) - Pending Review Specialty Diagnoses / Procedures Referred By Contac t Referred To Contact [facility] Diagnoses Sinus node dysfunction (HCC) Procedures ECHO ECHO TTHRC R-T 2D W/WOM-MODE COMPL SPEC&[place] [address] [place] [address] [facility] [address] [place] [address] Referral ID Status Reason Start Date Expiration Date Visits Requested Visits Authorized [id number] Pending Review Auto-Generat ed Referral 4 08/31/2025 1 1 * Outpatient Procedure (Routine) - New Request Specialty Diagnoses / Procedures Referred By Contac t Referred [facility] Diagnoses Sinus node dysfunction (HCC) Procedures ECG COMPLETE ECG ROUTINE ECG W/LEAST 12 LDS W/I&[place] [address] [place] [address] [facility] [address] [place] [address] Referral ID Status Reason Start Date Expiration Date Visits Requested Visits Authorized [id number] New Request Auto-Generat ed Referral 4 08/31/2025 1 1 [facility] (narrative)No reason for referral information availableHocking [facility] Work Phone: Reason for visit Narrative* Injectable (Routine) - Authorized Specialty Diagnoses / Procedures Referred By Contac t Referred To Contact [facility] Diagnoses Chronic migraine without aura, intractable, without status migrainosus Procedures BOTULINUM TOXIN A PER 1 UNIT CHEMODERVATE FACIAL/TRIGEM/[place] [address] [address] [place] [address] Phone: tel: fax: Neurology [address] [place] [address] Phone: tel: fax: Referral ID Status Reason Start Date Expiration Date V isits Requested Visits Authorized [id number] Authorized 03/13/2024 11/14/2025 8 8 [facility] Summary Purpose Family History Relationship Condition [...] Advance Directives No September 15, 2019 11:04am Advance Directive Response Recorded Date/ Time Advance Directives No July 10:19am Chief Complaint and Reason for Visit Chief [...] 2025 2: 50pm Medicare annual wellness visit, irise nt July 02, 2025 2:50pm Screening mammogram for breast cancer Au kylie 2024 2:50pm Chief Complaint m47.27 Chief Complaint m47.27 m47.27 Chief Complaint m47.27 m47.27 stenosis Chief Complaint m47.27 m47.27 stenosis stenosis Reason for Visit Lumbar stenosis with neurogenic claudication Chief Complaint Cough , Drainage For Weeks [phone] BACK ISSUES Chief Complaint BACK ISSUES Amb [...] Anemia of renal disease Chronic kidney disease [id number] Leukopenia Pancreatic cancer Secondary hyperparathyroidism Vitamin D [...] kidney disease) stage 4, GFR 15-29 ml/min [id number] Leukopenia Secondary hyperparathyroidism Age-related osteoporosis without current [...] kidney disease) stage 4, GFR 15-29 ml/min [id number] Leukopenia Secondary hyperparathyroidism Age-related osteoporosis without current pathological fracture Chronic kidney disease Gastroesophageal reflux disease with esophagitis without hemorrhage History of pancreatic cancer Hypertension Lumbar stenosis with neurogenic claudication Major depression Medicare annual wellness visit, subsequent Screening mammogram for breast cancer Chief Complaint RENAL CKD MAWV Unknown 1 YR F/U-CONSTIPATION/NAUSEA Reason for Visit Anemia of renal dise ase CKD (chronic kidney disease) stage 4, GFR 15-29 ml/min [id number] Leukopenia Secondary hyperparathyroidism Age-related osteoporosis without current [...] Reason for Visit Anemia of renal dise ase CKD (chronic kidney disease) stage 4, GFR 15-29 ml/min [id number] Leukopenia Secondary hyperparathyroidism Age-related osteoporosis without current [...] Reason for Visit Anemia of renal dise ase CKD (chronic kidney disease) stage 4, GFR 15-29 ml/min [id number] Leukopenia Secondary hyperparathyroidism Age-related osteoporosis without current [...] kidney disease) stage 4, GFR 15-29 ml/min [id number] Secondary hyperparathyroidism Chief Complaint Admit Date 1 [...] 2024 8:49am Preop exam for internal medicine [facility] r 2023 8:49am Chief Complaint [...] 2024 8:49am Preop exam for internal medicine [facility] r 2023 8:49am Adverse effect [...] 0:35am stomach pain-sent by November 24 1:33pm [facility] ER f/u November 28, 2024 1 [...] History of D[facility] (deep vein thrombosis) [facility] 8:49am Hypertension October 27, 2024 8:49am Lumbar stenosis with neurogenic claudica tion October 27, 2024 8:49am Major depression October 27, 2024 8:49am Preop exam for internal medicine [facility] 2023 8:49am Adverse effect of [...] 0:35am stomach pain-sent by November 24 1:33pm [facility] ER f/u November 28, 2024 1 [...] 2024 8:49am Preop exam for internal medicine [facility] 2023 8:49am Adverse effect of anticoagul [...] 0:35am stomach pain-sent by November 24 1:33pm [facility] ER f/u November 28, 2024 1 [...] 0:35am stomach pain-sent by November 24 1:33pm [facility] ER f/u November 28, 2024 1 [...] 8:48am M96.1 M48.062 M54.17 August 01 7:15am Chief Complaint Admit Date Wellness July 02, [...] 2025 2: 50pm Medicare annual wellness visit, irise nt July 02, 2025 2:50pm Screening mammogram for breast cancer [facility] 2024 2:50pm Anemia of renal disease August 15 9:36am Bilateral lower extremity edema August 15, 2025 9:36am CKD (chronic kidney disease) stage 4, GF R 15-29 ml/min August 15, 2025 9:36am Hypertensive chronic kidney disease with stage 1 through stage 4 chronic ki August 15, 2025 9:36am Secondary hyperparathyroidism August 9:36am Reason for Referral Specialty Diagnoses / Procedures Referred By Saturnino bhatia Referred To Contact [facility] Diagnoses Cervicalgia Procedures CONSULT TO [facility] OFFICE/OUTPATIENT [facility] [address] [place] [address] [place] [id number] Referral ID Status Reason Start Date Expiration Date Visits Requested Visits Authorized [id number] Authorized PCP Requested Referral 03/07/2024 03/07/2025 1 1 Specialty Diagnoses / Procedures Referred By Contac t Referred To Contact Diagnoses SHELL (obstructive sleep apnea) Procedures CONSULT TO SLEEP MEDICINE - ADULT OFFICE/OUTPATIENT [facility] [address] [place] [address] [place] [address] Referral ID Status Reason Start Date Expiration Date Visits Requested Visits Authorized [id number] Authorized PCP Requested Referral 03/07/2024 03/07/2025 1 1 Specialty Diagnoses / Procedures Referred By Contac t Referred To Contact [facility] Diagnoses Intractable 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 aura and without status migrainosus Procedures CONSULT TO [facility] OFFICE/OUTPATIENT [facility] 60 MINUTES Lauren Otero, CONNIE.DEADENER [address] [place] [address] Neur Headache Main [address] [place] [id number] Referral ID Status Reason Start Date Expiration Date Visits Requested Visits Authorized [id number] Authorized PCP Requested Referral 12/23/2023 12/22/2024 1 1 Additional Source Comments REASON FOR VISIT (unrecogniz ed section and content) Reason Comments Established Patient Botox treatment Chronic Migraine Specialty Diagnoses / Procedures Referred By Contac t Referred To Contact ADULT NEUROLOGY Diagnoses Chronic migraine without aura, intractable, without status migrainosus Procedures BOTULINUM TOXIN A PER 1 UNIT CHEMODERVATE FACIAL/TRIGEM/[place] [address] [place] [address] Phone: tel: fax: Neurology [address] [place] [address] Phone: tel: fax: Referral ID Status Reason Start Date Expiration Date V isits Requested Visits Authorized [id number] Authorized 03/13/2024 11/14/2025 8 8 Reason Comments [...] CONSULT TO HEADACHE CLINIC OFFICE/OUTPATIENT NEW HIGH MDM 60 MINUTES Lauren Otero, EGG PROCESSING SUPERVISOR.DEADENER [address] [place] [address] Neur Headache Main [address] [place] [address] Referral ID Status Reason Start Date Expiration Date V isits Requested Visits Authorized [id number] Closed PCP Requested Referral 12/23/2023 12/22/2024 1 1 Reason Comments Established Patient botox Specialty Diagnoses / Procedures Referred By Contac t Referred To Contact ADULT NEUROLOGY Diagnoses Chronic migraine without aura, intractable, without status migrainosus Procedures BOTULINUM TOXIN A PER 1 UNIT CHEMODERVATE FACIAL/TRIGEM/[place] [address] [place] [address] [place] [address] Referral ID Status Reason Start Date Expiration Date V isits Requested Visits Authorized [id number] Authorized 03/13/2024 03/13/2025 4 4 Reason Comments Epilepsy Reason Comments Cardiology Follow Up Specialty Diagnoses / Procedures Referred By Contac t Referred To Contact ADULT NEUROLOGY Diagnoses Chronic migraine without aura, intractable, without status migrainosus Procedures BOTULINUM TOXIN A PER 1 UNIT CHEMODERVATE FACIAL/TRIGEM/CERV MUSC MIGRAINE Randa Reilly MD [address] [place] [address] Neur Adult [address] [place] [address] Reason Comments Large abdominal hematoma Reason Comments Refill Request Reason Comments PCP requested pt. be seen again for bladwoa mirandas on her abdomen Reason Comments Follow Up Reason Comments Established Patient botox Chronic Migraine Reason Comments New Patient Specialty Diagnoses / Procedures Referred By Saturnino t Referred To Contact Neurology Diagnoses MCI (mild cognitive impairment) Procedures CONSULT TO NEUROLOGY OFFICE/OUTPATIENT NEW HIGH MDM 60 MINUTES Alejandro Villar MD, PhD [address] [place] [address] Phone: tel: fax: Outpatient Referral [address] [place] [address] Referral ID Status Reason Start Date Expiration Date V isits Requested Visits Authorized [id number] Closed PCP Requested Referral 05/07/2025 11/14/2025 1 1 Source Comments (unrecognize d section and content) In the event this informatio n is protected by the Federal Confidentiality of Alcohol and Drug Abuse Patient Records regulations: The Federal rules restrict any use of the information to criminally investigate or prosecute any alcohol or drug abuse patient.[facility] the event this information is protected by the Federal Confidentiality of Alcohol and Drug Abuse Patient Records regulations: The Federal rules restrict any use of the information to criminally investigate or prosecute any alcohol or drug abuse patient.[facility] the event this information is protected by the Federal Confidentiality of Alcohol and Drug Abuse Patient Records regulations: The Federal rules restrict any use of the information to criminally investigate or prosecute any alcohol or drug abuse patient.[facility] the event this information is protected by the Federal Confidentiality of Alcohol and Drug Abuse Patient Records regulations: The Federal rules restrict any use of the information to criminally investigate or prosecute any alcohol or drug abuse patient.[facility] the event this information is protected by the Federal Confidentiality of Alcohol and Drug Abuse Patient Records regulations: The Federal rules restrict any use of the information to criminally investigate or prosecute any alcohol or drug abuse patient.[facility] the event this information is protected by the Federal Confidentiality of Alcohol and Drug Abuse Patient Records regulations: The Federal rules restrict any use of the information to criminally investigate or prosecute any alcohol or drug abuse patient.[facility] the event this information is protected by the Federal Confidentiality of Alcohol and Drug Abuse Patient Records regulations: The Federal rules restrict any use of the information to criminally investigate or prosecute any alcohol or drug abuse patient.[facility] the event this information is protected by the Federal Confidentiality of Alcohol and Drug Abuse Patient Records regulations: The Federal rules restrict any use of the information to criminally investigate or prosecute any alcohol or drug abuse patient.[facility] the event this information is protected by the Federal Confidentiality of Alcohol and Drug Abuse Patient Records regulations: The Federal rules restrict any use of the information to criminally investigate or prosecute any alcohol or drug abuse patient.[facility] the event this information is protected by the Federal Confidentiality of Alcohol and Drug Abuse Patient Records regulations: The Federal rules restrict any use of the information to criminally investigate or prosecute any alcohol or drug abuse patient.[facility] the event this information is protected by the Federal Confidentiality of Alcohol and Drug Abuse Patient Records regulations: The Federal rules restrict any use of the information to criminally investigate or prosecute any alcohol or drug abuse patient.[facility] the event this information is protected by the Federal Confidentiality of Alcohol and Drug Abuse Patient Records regulations: The Federal rules restrict any use of the information to criminally investigate or prosecute any alcohol or drug abuse patient.[facility] the event this information is protected by the Federal Confidentiality of Alcohol and Drug Abuse Patient Records regulations: The Federal rules restrict any use of the information to criminally investigate or prosecute any alcohol or drug abuse patient.[facility] the event this information is protected by the Federal Confidentiality of Alcohol and Drug Abuse Patient Records regulations: The Federal rules restrict any use of the information to criminally investigate or prosecute any alcohol or drug abuse patient.[facility] the event this information is protected by the Federal Confidentiality of Alcohol and Drug Abuse Patient Records regulations: The Federal rules restrict any use of the information to criminally investigate or prosecute any alcohol or drug abuse patient.[facility] Hospital[facility] the event this information is protected by the Federal Confidentiality of Alcohol and Drug Abuse Patient Records regulations: The Federal rules restrict any use of the information to criminally investigate or prosecute any alcohol or drug abuse patient.[facility] the event this information is protected by the Federal Confidentiality of Alcohol and Drug Abuse Patient Records regulations: The Federal rules restrict any use of the information to criminally investigate or prosecute any alcohol or drug abuse patient.[facility] Hospital[facility] the event this information is protected by the Federal Confidentiality of Alcohol and Drug Abuse Patient Records regulations: The Federal rules restrict any use of the information to criminally investigate or prosecute any alcohol or drug abuse patient.[facility] Hospital[facility] the event this information is protected by the Federal Confidentiality of Alcohol and Drug Abuse Patient Records regulations: The Federal rules restrict any use of the information to criminally investigate or prosecute any alcohol or drug abuse patient.[facility] HospitalIn the event this information is protected by the Federal Confidentiality of Alcohol and Drug Abuse Patient Records regulations: The Federal rules restrict any use of the information to criminally investigate or prosecute any alcohol or drug abuse patient.[facility] Hospital[facility] the event this information is protected by the Federal Confidentiality of Alcohol and Drug Abuse Patient Records regulations: The Federal rules restrict any use of the information to criminally investigate or prosecute any alcohol or drug abuse patient.[facility] HospitalIn the event this information is protected by the Federal Confidentiality of Alcohol and Drug Abuse Patient Records regulations: The Federal rules restrict any use of the information to criminally investigate or prosecute any alcohol or drug abuse patient.[facility] HospitalIn the event this information is protected by the Federal Confidentiality of Alcohol and Drug Abuse Patient Records regulations: The Federal rules restrict any use of the information to criminally investigate or prosecute any alcohol or drug abuse patient.[facility] HospitalIn the event this information is protected by the Federal Confidentiality of Alcohol and Drug Abuse Patient Records regulations: The Federal rules restrict any use of the information to criminally investigate or prosecute any alcohol or drug abuse patient.[facility] Care Teams (unrecognized sec tion and content) Team Status: Active Member Role Status Dates Broderick Howard , Primary Care Provider Active Team Status: Inactive [...] Status: Active Member Role Status Dates Broderick Ball , DO Primary Care Provider Active Start: February 12, 2025 Katina Ordoñez MD Attending Provider Active Start : February 12, 2025 Team Status: Inactive Member Role Status Dates Broderick Howard DO Primary Care Provider Active Start: February 21, 2025 End: February 21, 2025 CONNIE Peña Attending Provider Act lauryn Start: February 21, [...] Care Provider Active Start: August 28, 2024 aKtina Ordoñez MD Attending Provider Active Start : [...] Alejandro Villar Attending Provider Active Start: A ug2023 Team Status: Inactive Member Role Status Dates [...] March 09, 2024 End: March 09, 2024 Supervisor Mapping Relationship Specialty Start Date End Date Broderick Howard, DO [address] [facility] [place] [address] PCP - General Internal Medicine 09/21/18 Kitty Valente MD [address] [place] [address] Primary Staff Physician Cardiology 01/31/19 Supervisor Mapping Relationship Specialty Start Date End Date Broderick Howard, DO [address] [facility] [place] [address] PCP - General Internal Medicine 09/21/18 Kitty Valente MD [address] [place] [address] Primary Staff Physician Cardiology 01/31/19 Supervisor Mapping Relationship Specialty Start Date End Date Broderick Howard, DO [address] [facility] [place] [address] PCP - General Internal Medicine 09/21/18 Kitty Valente MD [address] [facility] [place] [place] [address] Primary Staff Physician Cardiology 01/31/19 Supervisor Mapping Relationship Specialty Start Date End Date Broderick Howard, DO [address] [facility] [place] [address] PCP - General Internal Medicine 09/21/18 Kitty Valente MD [address] [place] [address] Primary Staff Physician Cardiology 01/31/19 Supervisor Mapping Relationship Specialty Start Date End Date Broderick Howard, DO [address] [facility] [place] [address] PCP - General Internal Medicine 09/21/18 Kitty Valente MD [address] [place] [address] Primary Staff Physician Cardiology 01/31/19 Team Status: Inactive Member Role Status Dates Broderick Howard DO Primary Care Provider, Attending Pr ovider Active Supervisor Mapping Relationship Specialty Start Date End Date Broderick Howard DO [address] [facility] [place] [address] PCP - General Internal Medicine 09/21/18 Kitty Valente MD [address] [place] [address] Primary Staff Physician Cardiology 01/31/19 Team Status: Inactive Member Role Status Riccardo Howard DO Primary Care Provider Active Niki Weeks MD Attending Provider Active Supervisor Mapping Relationship Specialty Start Date End Date Broderick Howard DO [address] [place] [id number] PCP - General Internal Medicine 09/21/18 Kitty Valente MD [address] [place] [address] Primary Staff Physician Cardiology 01/31/19 Supervisor Mapping Relationship Specialty Start Date End Date Broderick Howard DO [address] [place] [id number] PCP - General Internal Medicine 09/21/18 Kitty Valente MD [address] [place] [address] Primary Staff Physician Cardiology 01/31/19 Supervisor Mapping Relationship Specialty Start Date End Date Broderick Howard DO [address] [place] [id number] PCP - General Internal Medicine 09/21/18 Kitty Valente MD [address] [place] [address] Primary Staff Physician Cardiology 01/31/19 Supervisor Mapping Relationship Specialty Start Date End Date Broderick Howard DO [address] [place] [address] PCP - General Internal Medicine 09/21/18 Kitty Valente MD [address] [place] [address] Primary Staff Physician Cardiology 01/31/19 Supervisor Mapping Relationship Specialty Start Date End Date Broderick Howard DO [address] [place] [id number] PCP - General Internal Medicine 09/21/18 Kitty Valente MD [address] [facility] [place] [id number] Primary Staff Physician Cardiology 01/31/19 Team Status: Inactive Member Role Status Dates Broderick Howard DO Attending Provider Active Sta rt: November 24, 2023 End: November 24, 2023 Team Status: Inactive Member Role Status Dates Broderick Howard DO Primary Care Provide r, Attending Provider Active Start: February 09, 2024 End: February 09, 2024 Supervisor Mapping Relationship Specialty Start Date End Date Broderick Howard DO [address] [place] [id number] PCP - General Internal Medicine 09/21/18 Kitty Valente MD [address] [facility] [place] [id number] Primary Staff Physician Cardiology 01/31/19 Team Status: Active Member Role Status Dates Broderick Howard DO Primary Care Provide r, Attending Provider Active Start: February 10, 2024 Team Status: Active Member Role Status Dates Broderick Howard DO Primary Care Provider Active Start: February 15, 2024 HERSON Golden Attending Provider Active St art: February 15, 2024 Supervisor Mapping Relationship Specialty Start Date End Date Broderick Howard DO [address] [place] [id number] PCP - General Internal Medicine 09/21/18 Kitty Valente MD [address] [place] [id number] Primary Staff Physician Cardiology 01/31/19 Supervisor Mapping Relationship Specialty Start Date End Date Broderick Howard DO [address] [place] [id number] PCP - General Internal Medicine 09/21/18 Kitty Valente MD [address] [place] [address] Primary Staff Physician Cardiology 01/31/19 Supervisor Mapping Relationship Specialty Start Date End Date Broderick Howard DO [address] [place] [address] PCP - General Internal Medicine 09/21/18 Kitty Valente MD [address] [place] [address] Primary Staff Physician Cardiology 01/31/19 Supervisor Mapping Relationship Specialty Start Date End Date Broderick Howard MD [address] [facility] [place] [id number] PCP - General Internal Medicine 05/03/24 Supervisor Mapping Relationship Specialty Start Date End Date Broderick Howard MD [address] [place] [facility] [place] [address] PCP - General Internal Medicine 05/03/24 Supervisor Mapping Relationship Specialty Start Date End Date Broderick Howard DO [address] [place] [address] PCP - General Internal Medicine 09/21/18 Kitty Valente MD [address] [place] [address] Primary Staff Physician Cardiology 01/31/19 Supervisor Mapping Relationship Specialty Start Date End Date Broderick Howard DO [address] [place] [address] PCP - General Internal Medicine 09/21/18 Kitty Valente MD [address] [place] [id number] Primary Staff Physician Cardiology 01/31/19 Supervisor Mapping Relationship Specialty Start Date End Date Broderick Howard DO [address] [place] [id number] PCP - General Internal Medicine 09/21/18 Kitty Valente MD [address] [place] [id number] Primary Staff Physician Cardiology 01/31/19 Team Status: Inactive Member Role Status Dates Broderick Howard DO Primary Care Provider Active Start: February 22, 2025 End: February 22, 2025 Katina Ordoñez MD Attending Provider Active Start : February 22, 2025 End: February 22, 2025 Supervisor Mapping Relationship Specialty Start Date End Date Broderick Howard DO [address] [place] [id number] PCP - General Internal Medicine 09/21/18 Kitty Valente MD [address] [facility] [place] [id number] Primary Staff Physician Cardiology 01/31/19 Team Status: Inactive Member Role Status Dates Broderick Howard DO Primary Care Provider Active Start: July 02, 2025 End: July 02, 2025 Broderick Howard DO Attending Provider Active Sta rt: July 02, 2025 End: July 02, 2025 Supervisor Mapping Relationship Specialty Start Date End Date Broderick Howard DO [address] [place] [id number] PCP - General Internal Medicine 09/21/18 Kitty Valente MD [address] [place] [id number] Primary Staff Physician Cardiology 01/31/19 Team Status: Active Member Role Status Dates Broderick Howard DO Primary Care Provider Active Start: July 23, 2025 Tiana Brush , DRUM PULLER-C Other Provider Active Start: July 23, 2025 Leandra Gama MD Attending Provider Active Start: July 23, 2025 Team Status: Inactive Member Role Status Dates Broderick Howard DO Primary Care Provider Active Start: August 01, 2025 End: August 01, 2025 REYES Maldonado Attending Provider Active St art: August 01, 2025 End: August 01, 2025 Team Status: Active Member Role Status Dates Broderick Howard DO Primary Care Provider Active Start: August 06, 2025 Katina Ordoñez MD Attending Provider Active Start : August 06, 2025 Team Status: Inactive Member Role Status Dates Broderick Howard DO Primary Care Provider Active Start: August 15, 2025 End: August 15, 2025 Katina Ordoñez MD Attending Provider Active Start : August 15, 2025 End: August 15, 2025 INFORMATION SOURCE (unrecogn ized section and content) DATE CREATED AUTHOR 07/24/2022 [facility] DATE CREATED AUTHOR AUTHOR'S ORGANIZ ATION 04/23/2023 [facility] DATE CREATED AUTHOR AUTHOR'S ORGANIZ ATION 06/11/2023 [facility] DATE CREATED AUTHOR AUTHOR'S ORGANIZ ATION 06/10/2024 [facility] DATE CREATED AUTHOR AUTHOR'S ORGANIZ ATION 10/26/2024 [facility] DATE CREATED AUTHOR AUTHOR'S ORGANIZ ATION 10/28/2024 [facility] DATE CREATED AUTHOR AUTHOR'S ORGANIZ ATION 11/05/2024 [facility] DATE CREATED AUTHOR AUTHOR'S ORGANIZ ATION 11/06/2024 [facility] DATE CREATED AUTHOR AUTHOR'S ORGANIZ ATION 11/08/2024 [facility] DATE CREATED AUTHOR AUTHOR'S ORGANIZ ATION 12/15/2024 [facility] dical [facility] DATE CREATED AUTHOR AUTHOR'S ORGANIZ ATION 05/24/2025 [facility] DATE CREATED AUTHOR AUTHOR'S ORGANIZ ATION 05/31/2025 [facility] DATE CREATED AUTHOR AUTHOR'S ORGANIZ ATION 07/19/2025 [facility] DATE CREATED AUTHOR AUTHOR'S ORGANIZ ATION 08/05/2025 [facility] y[facility] Goals (unrecognized section and content) [...] BE BASED ON THE PRIMARY CLINICAL RECORDS. [facility] [email or web address] [facility]. provides no warranty or guarantee of the accuracy or completeness of information in this document.
[2025-08-27 11:07] VITALS: BP 140/63; PULSE 72; PULSE 80; O2SAT 95; O2SAT 96
[2025-08-27 11:08] VITALS: BP 135/63
[2025-08-27] MEDS: BUPIVACAINE HCL 0.25% PF 25 MG/10 ML VIAL INJ (11:09)
[2025-08-27] MEDS: IOHEXOL 240 MG/ML - 10 ML VIAL INJ (11:09)
[2025-08-27] MEDS: 0.9 % SODIUM CHLORIDE 10 ML SYRINGE - SALINE FLUSH INJ (11:09)
[2025-08-27] MEDS: METHYLPREDNISOLONE ACETATE 80 MG/ML VIAL INJ (11:10)
[2025-08-27] MEDS: LIDOCAINE HCL 2% 400 MG/20 ML MDV INJ (11:10)
--- NOTE | 2025-08-27 11:12 | P.ON_ITS ---
Date of procedure: 08/27/25 Pre-op diagnosis: Pain due to lumbar stenosis with neurogenic claudication Post-op diagnosis: same as pre-op Procedure: Procedure: Right L4-5, L5-S1 transforaminal epidural steroid injection Medications: Bupivacaine 0.25% 2cc, lidocaine 2% 1cc, depomedrol 80mg The patient was seen and examined in the preoperative holding area.? Informed consent was obtained and placed on the chart.? Patient was brought to the medical procedure unit and placed in the prone position where a timeout was completed verifying the correct patient, procedure site, position, and planned special equipment using sterile aseptic technique.? Under direct fluoroscopic visualization a 25-gauge Quincke tipped spinal needle was advanced to the designated neural foramen where contrast dye was injected to show adequate spread.? The needle was inserted at level right L4-5. There was no evidence of vascular or adverse uptake.? Epidural spread was appreciated.? The above- mentioned injectate was then placed in a 1.5 mL aliquot preceded by negative aspiration.? The needle was removed. The needle was inserted and the procedure repeated at level right L5-S1.? The surgery site was covered.? Patient was taken to the postprocedural recovery area and monitored for an appropriate length of time before found suitable for discharge in the accompaniment of a responsible adult. Anesthesia: Local Surgeon: Keith Parks Pathology: none sent Condition: stable Disposition: no change
== END 2025-08-27 11:19 | disposition home or self-care (01) ==
PROVIDERS: PCP Internal Medicine; Visit Provider Anesthesiology
DX: M48.062 Spinal stenosis, lumbar region with neurogenic claudication (principal); M54.50 Low back pain, unspecified
CPT/HCPCS: 64483; 64484; J0665; J1010; Q9966

== ENCOUNTER 2025-09-06 10:04 | Outpatient (OUT) | payer MEDICARE, SELFPAY ==
--- OUTSIDE RECORDS SUMMARY | 2025-08-28 06:16 | XMS_ITS | Continuity of Care Document ---
Author Organization [facility] [place] Address [address] [place] [address] Phone Care Team Providers Care Grocery Clerk Checking Name Role Phone Broderick Joiner DO Primary Care Provider [phone] Broderick Joiner DO Attending Provider Tiana Brush NP-C Other Provider [phone] Leandra Gama MD Attending Provider Tiana Brush NP-C Attending Provider Luc Ordoñez Attending Provider [phone] Hank Maher APRN Attending Provider Care Teams Patient Care Team Team Status: Active Member Role Status Dates Broderick Joiner DO Primary Care Provider Active Visit Care Team Team Status: Inactive Member Role Status Riccardo Joiner DO Primary Care Provider Active Start: July 02, 2025 End: July 02wolf Joiner DOAttsumaya ProviderActiveStart: July 02, 2025 End: July 02, 2025 Visit Care Team Team Status: Active Member Role Status Riccardo Joiner DO Primary Care Provider Active Start: July 23, 2025 Geraldine Maldonado ProviderActiveStart: July 23, 2025 German Urbano ProviderActiveStart: July 23, 2025 Visit Care Team Team Status: Inactive Member Role Status Riccardo Joiner DO Primary Care Provider Active Start: August 01, 2025 End: August 01JACOBY RojasCAttending ProviderActiveStart: August 01, 2025 End: August 01, 2025 Visit Care Team Team Status: Active Member Role Status Dates Broderick Joiner DO Primary Care Provider Active Start: August 06, 2025 Katina Smita MDAttending ProviderActiveStart: August 06, 2025 Visit Care Team Team Status: Inactive Member Role Status Dates Broderick Joiner DO Primary Care Provider Active Start: August 15, 2025 End: August 15bdimelda Smita , MDAttending ProviderActiveStart: August 15, 2025 End: August 15, 2025 Patient Care Team Team Status: Inactive Member Role Status Dates Broderick Joiner DO Primary Care Provider Active Start: August 28, 2025 End: August 28, 2025Hank Maher APRNAtveronica ProviderActiveStart: August 28, 2025 End: August 28, 2025 Chief Complaint and Reason for Visit Chief Complaint Admit Date Wellness July 02, 2025 2: 50pm Z95.0 July 23, 2025 8:48am M96.1 M48.062 M54.17 August 01 7:15am renal 6 month f/u August 15, 2025 9: 36am 1 year follow up August 28, 2025 9 :35am Reason for Visit Admit Date Age-related osteoporosis [...] Anemia of renal disease August 15 9:36am CKD (chronic kidney disease) stage 4, GF R 15-29 ml/min August 15, 2025 9:36am GERD (gastroesophageal reflux disease) O ctober 2024 9:36am Hypertensive chronic kidney disease with stage 1 through stage 4 chronic ki August 15, 2025 9:36am Secondary hyperparathyroidism August 9:36am Nausea August 28, 2025 9 :35am Allergies, Adverse Reactions, Alerts Allergen Type Severity Reaction Last Updated Verified Status dexamethasone Allergy Unknown Rash August 28, 2025 9:47am Yes Active pregabalin Allergy Unknown Rash August 28, 2025 9:47am Yes Active rifaximin Allergy Unknown rash August 28, 2025 9:47am Yes Active Social History Smoking Status Status Start Date End Date Date of Observa tion Never smoked tobacco (finding) August 15, 2025 9:49am Observation Status Observation Response Date of Response Legal Sex Female (finding) Sex Assigned At BirthFemaleMay 1949 Family History Relationship Condition Age at Onset Recorded Date/T miguel father Malignant neoplasm of pancreas Unknown brotherMalignant neoplasm of pancreasUnknownmotherMalignant neoplasm of breast Unknownfamily memberDeceasedUnknown Problems Active Problems Medical Problem Onset Date Status Comments History of DVT (deep vein thrombosis) Unknown Act laruyn Bilateral lower extremity edemaUnknownActivePostoperative pain after spinal surgeryUnknownActiveLumbosacral spondylosis with radiculopathyUnknownActive Gastroesophageal reflux disease with esophagitis without hemorrhageUnknownActive Major depressionUnknownActiveMajor depression, recurrentUnknownActiveObstructive sleep apneaUnknownActiveGreater trochanteric bursitis of both hipsUnknownActive Adhesive capsulitis of left shoulderUnknownActiveAge-related osteoporosis without current pathological fractureUnknownActiveSwelling of right lower extremityUnknownActiveEpilepsyUnknownActiveMigraine headache with auraUnknown ActiveLow back painUnknownActiveSecondary hyperparathyroidismUnknownActivePain of both sacroiliac jointsUnknownActiveParesthesia of skinFebruary 2018 ActivePancreatic cancerUnknownActivesurgery, chemo, radiationEpilepsy seizure, generalized, convulsiveUnknownActiveOsteoporosisUnknownActiveCKD (chronic kidney disease) stage 4, GFR 15-29 ml/minUnknownActiveCurrent use of alf anticoagulationUnknownActiveHypertensive chronic kidney disease with stage 1 through stage 4 chronic kidney disease, or unspecified chronic kidney disease UnknownActiveHistory of lumbar surgeryUnknownActiveLeukopeniaUnknownActive Chronic kidney diseaseUnknownActiveCervical spondylosisUnknownActiveArthropathy of right hipUnknownActivePost laminectomy syndromeUnknownActiveNontoxic single thyroid noduleUnknownActiveHistory of pancreatic cancerUnknownActiveGERD (gastroesophageal reflux disease)UnknownActiveAnemia of renal diseaseUnknown ActiveIrritable bowel syndrome with constipationUnknownActiveHypertensionUnknown ActiveNauseaUnknownActiveVitamin D deficiencyUnknownActiveLumbar spondylosis UnknownActiveAsthmaUnknownActiveLumbar stenosis with neurogenic claudication UnknownActiveInactive/Resolved Problems Medical Problem Onset Date Status Comments H/O cardiac pacemaker Unknown Resolved Abdominal hematomaUnknownResolved Medications Medication Status Dose Units Route Directions Qty Days St art Date Stop Date End Date Instructions Adherence Amlodipine 5 mg tablet Discontinued 5 MG PO Every mor diana 90 February 02, 2024 1:08pm February 13, 2025 7:42amLosartan 25 mg nbxmuxKsbhkavivamv85DMULWyesf mjvtlkb6926 February 02, 2024 1:09pmDecember 2023 6:58pmVenlafaxine 150 mg capsule,extended release 00daVsjnnpwfaqcb9.ROUTE.YLXOZYZ89Mqnog 2023 1:31pmOctober 2023 7:38pmTAKE 1 CAPSULE BY MOUTH EVERY DAYTramadol 50 mg sxcrqnDfzjdrvfwvvn10GKUOLhnps daily as needed for kmet4274Qgz 2023 3:16pm October 27, 2024 10:00amCarvedilol 12.5 mg tabletDiscontinued0.ROUTE.COMPLEX 180July 2023 6:47amOctober 2023 9:21amTAKE 1 TABLET BY MOUTH TWICE A DAYOndansetron 4 mg tablet,disintegratingDiscontinued0.ROUTE.FGXKUKM13Pflu 2023 8:49amJuly 2024 1:13pmDISSOLVE 1 TABLET IN MOUTH EVERY 6 HOURS NEEDED FOR NAUSEAVenlafaxine 150 mg capsule,extended release 98ycKorjohsorrhf4 .ROUTE.WHWEOWJ02Mjubhlx 2023 7:38pmApril 2024 7:42amTAKE 1 CAPSULE BY MOUTH EVERY DAYLosartan 25 mg wibannEfxmkepnnkmy94ZEAOYlvlg bbpngxn2330Ovfkpcql 2023 6:58pmDecember 2023 3:47pmLosartan 25 mg cmwbkzEgbdrz80UNAX Every rbdekte905605Kqvnvpli 2023 3:46pmComplies with drug therapyWarfarin 4 mg tabletActive0.ROUTE.QPXEAUO69Hdfcmkp 2024 2:07pmTAKE 1 TABLET BY MOUTH EVERY DAY DIRECTED BY [facility] 90Complies with drug therapyDoxycycline Hyclate 100 mg yfrnjrzNmretevhukhn745MDSNNgikd mjktu3496Aedjukg 2024 1:00am February 21, 2025 2:07pmAmlodipine 5 mg tabletDiscontinued0.ROUTE.TOPDCGY34Ytewd 2024 7:42amApril 2024 10:43amTAKE 1 TABLET BY MOUTH EVERY MORNING FOR HYPERTENSIONVenlafaxine 150 mg capsule,extended release 38euBepkmggzwlup5.ROUTE .VCRROFN85Jshaa 2024 7:42amApril 2024 10:43amTAKE 1 CAPSULE BY MOUTH EVERY DAYFerrous Sulfate 325 mg (65 mg iron) tabletDiscontinued0.ROUTE.YKONTND98 February 27, 2025 8:41amSeptember 2024 10:05amTAKE 1 TABLET BY MOUTH EVERY 48 HOURSCarvedilol 12.5 mg tabletDiscontinued0.ROUTE.XHSQCHY214GdaApril 01, 2025 5:07pmOctober 2024 9:48amTAKE 1 TABLET BY MOUTH TWICE A DAYErgocalciferol (Vitamin D2) 1,250 mcg (50,000 unit) capsuleDiscontinued0.ROUTE.ZYXNIEW24PueApril 02, 2025 9:33amOctober 2024 9:48amTAKE 1 CAPSULE BY MOUTH ONCE EVERY WEEK Ondansetron 4 mg tablet,disintegratingActive0.ROUTE.HLJUZOK93Anyy 2024 1:13pmDISSOLVE 1 TABLET IN MOUTH EVERY 6 HOURS NEEDED FOR NAUSEAComplies with drug therapyVenlafaxine 150 mg capsule,extended release 34uqKmrjlgkkjyos1.ROUTE .CCWQEHK63Shrgxcghy 25th, 2025 6:54amOctober 2024 9:48amTAKE 1 CAPSULE BY MOUTH EVERY DAYFerrous Sulfate 325 mg (65 mg iron) tabletActive0.ROUTE.AGJMPED42 August 09, 2025 10:05amTAKE 1 TABLET BY MOUTH EVERY 48 HOURSComplies with drug therapyFurosemide 20 mg tabletDiscontinued0.ROUTE.CJYDTBQ89Cviinpl 1st, 2025 8:59amOctober 2024 9:48amTAKE 1 TABLET BY MOUTH EVERY DAYOmeprazole 40 mg capsule,delayed release(DR/EC)Active0.ROUTE.PPLSKUO84Mfmcvyx2024 3:37pm TAKE 1 CAPSULE BY MOUTH 30 MINUTES BEFORE THE MORNING MEAL FOR GERDComplies with drug therapyCarvedilol 12.5 mg yzswdzCsstnibywzvq12.5MGPOTwice dailySeptember 2022 12:00amMarch 2023 11:21amAmlodipine 5 mg bzpaukKdiwsdiejieh1OCBO Every morningSeptember 2022 12:00amMarch 2023 1:08pmAmitriptyline 10 mg spanzcDctzyivgvsil37PYTYXmoqw at bedtimeSept2022 12:00amJuly 2023 2:32pmWarfarin 2 mg QzwotyXjpgzsuaabet7FMQPwptgt Wednesday, Wednesday, Wednesday, and Sundayseptember 2022 12:00amMarch 2023 11:26amOmeprazole 40 mg capsule,delayed release(DR/EC)Rjlrprskloje93QYFQJsgey morningSeptember 2022 11:46amOctober 2023 11:05amLosartan 25 mg jwupzbYmagfefljvvi65KNMUSnmks morningSeptember 2022 12:00amMarch 2023 1:09pmVenlafaxine 150 mg capsule,extended release 29umKqsbrbfxqzjp696FNRGCapac morningSeptember 2022 12:00amMarch 2023 11:23amAcetaminophen (Tylenol Extra Strength) 500 mg OskkofhMvbtwfbilerm2842NJRZP9T as needed for PainSeptember 2022 12:00am February 08, 2024 11:20amEnoxaparin (Lovenox) 100 mg/mL WwlhaycJeskoqmfbtgh54IT SUBCUTDailySeptember 2022 12:00amJuly 2023 2:29pmTizanidine 4 mg HvxzudYytouynfusut2NAUQCgoys daily as needed for Muscle Oyptz1198Ssboomoel 2022 12:00amMarch 2023 11:24amHydrocodone-Acetaminophen 5-325 mg Tablet Hwlkegtdlfgb1ZSOMRX2K as needed for Pain Scale 1 - 18612Ubqxwjgyj 2022February 08, 2024 11:22amAmitriptyline 10 mg hctokbPfpjbfqpbqmz44QFZTJfehm at bedtimeJuly 2023 2:28pmOctober 2023 9:18amLinaclotide (Linzess) 72 mcg tqgftqhJjqinjhkzbtc34PJGYRUvmmuYpojqtg 2024 1:00amApril 2024 10:43amLinaclotide (Linzess) 72 mcg wbphimaGlsegq87QFPKGAjyki as neededApril 2024 10:43amComplies with drug therapyVenlafaxine 75 mg capsule,extended release 44mhOxmhskrpqeku14VEDFBvboaZjmftwuz 2020 1:00amSeptember 2022 11:47amOmeprazole 40 mg capsule,delayed release(DR/EC)Mwfehrfduxes73LZMVTrqqw January 06, 2021 1:00amFebruary 2020 11:13amTramadol 50 mg tablet Fmqwihkfeusx20AKKPBmhxwKxleivgz 2020 1:00amSeptember 2022 11:48am Warfarin 4 mg gncfriQyyvowsnmthb1ZPOQjkfvb Wednesday, and Wednesday January 06, 2021 1:00amJanuary 2024 2:07pmZonisamide 100 mg capsule Qffpijwxvjri429GTUNGujftBvbmwvqj 2020 1:00amMarch 2023 3:12pm Amlodipine 10 mg jytrxaFweecjfepmwg29KHMBUiwnfCownkksi 2020 1:00am July 20, 2023 11:41amNaproxen Sodium (Aleve) 220 mg RvrlxjTfowdqlatcdh835 MGPOTwice daily as needed for PainFebruary 2020 1:00amSeptember 2022 11:48amHydralazine 50 mg akntcyQsugfjwxmbos50GKHQZy DirectedFebruary 2020 1:00amSeptember 2022 11:41amLevetiracetam 750 mg rmlqgtSowsbkszxncn593VQXN Twice dailyFebruary 2020 1:00amMarch 2023 11:22amOndansetron 4 mg tablet,mvvgpdqgfogcowZdkgxzylslum6ZHDDV3A as needed for NauseaFebruary 2020 1:00amJuly 2023 8:49amMelatonin 5 mg TmjlwfJbhyxkhyrmgs0LRHTCfbnley as needed for InsomniaFebruary 2020 1:00amSeptember 2022 11:48am Omeprazole 40 mg capsule,delayed release(DR/EC)Xifgkjgoxeps22KCCRUjgxb daily60 January 06, 2021 1:00amSeptember 2022 11:46amZonisamide 100 mg capsule Usnaue876OYKVXxlmdSrufj 2023 3:12pmComplies with drug therapyAmlodipine 5 mg ktxdwqNqcgmskvfyzp0JRBOVqvnwOiicw 2023 12:00amJuly 2023 2:29pm Carvedilol 12.5 mg epffsjHjaupqpzcrnk88.5MGPOTwice dailyMarch 2023 12:00am May 24, 2024 6:47amHydrocodone-Acetaminophen 5-325 mg nhoggkEwvspnwoukyr2GZO POEvery 8 hours as neededMarch 2023 12:00amMay 2023 2:00pm Levetiracetam 750 mg pgydhhPgeknv182SLZNQvrce 12 hoursMarch 2023 12:00am Complies with drug therapyVenlafaxine 150 mg capsule,extended release 24hr Aohxdchkjarf306UBBBUnhbwHbtxk 2023 12:00amApril 2023 1:31pm Venlafaxine 75 mg adifnbBohnvnaovygd29SMSOIgtyuFuopt 2023 12:00amJuly 2023 2:30pmMupirocin 2 % dpdnzffeWmbguhgqwyio3PKTKOCJKJXDKNTzkrk daily February 08, 2024 12:00amJuly 2023 2:30pmLinaclotide 72 mcg capsule Unfksitgqanz29QUZOAOfvyiDkbxl 2023 12:00amJuly 2023 2:32pm Linaclotide 72 mcg ltfaqifBasimhvgafet04XYNWKHoyly as neededJu2023 2:32pmOctober 2023 11:05amDoxycycline Monohydrate 100 mg capsule Roshgqbgpcya391WVHQJogdb gcmaz3676Zzclg 2024 12:00amAugust 2024 2:58pmAmitriptyline 50 mg rqkglcMopoyynxuliv34KCJAXclpf at izsrhgh7554Cknumzx 15th, 2024 12:00amOctober 2024 9:46amTake 1 tablet orally at bedtime. Linaclotide 72 mcg gxglzbjXtklpxlxocyk95PEMLMJfizn4056Qlsqrdr 15th, 2024 11:04am September 07, 2024 9:21amOmeprazole 40 mg capsule,delayed release(DR/EC) Cuhirnadswcv64EUYTNtjlq btzcfjg3209Naaxaxs2023 11:05amOctober 2024 3:37pmTake 1 capsule orally 30 minutes before morning meal.Tramadol 50 mg tablet Wkqdfyrmnwea58RQILLsydu daily as needed for oewd9097Igr 2023 12:00amMay 2023 3:17pmCyclobenzaprine 5 mg murepwBzqafhzrpgei8TLDLLjlvg dailyAugust 2023 12:00amOctober 2023 10:53amCyclobenzaprine 5 mg tablet Lfialnxamxsd2EAJZSacst daily as neededOct2023 10:52amDecember 2023 9:59amCarvedilol 12.5 mg mddbgmZzrndehsvorg78.5MGPOTwice dailyOct2023 9:19amMay 2024 5:13pmLinaclotide 72 mcg fwofrncSdbfgwcjvrxm53DVSUD Daily as neededOctober 2023 9:21amDecember 2023 10:00amFerrous Sulfate 325 mg (65 mg iron) ojzgviQouqlzqooopf608QABYKtizb 48 rnlvs77Pauadyo 2023 12:00amApril 2024 8:42amErgocalciferol (Vitamin D2) 1,250 mcg (50,000 unit) zlpjlgvJovempevosck3819BVXMAmyamm xpun65Ypslrws 2023 12:00am April 02, 2025 9:33amAmlodipine 5 mg ozowmaMebzgq3YNQMQerxpYugjy 2024 10:42amComplies with drug therapyVenlafaxine 150 mg capsule,extended release 09cuJlefeiafqaqa951JFNAKmfexVnbyv 2024 10:43amSeptember 2024 6:54am Furosemide (Lasix) 20 mg xsukxkUrhqgzpgdtuu50DMMSYpbqt67Zgawt 2024 12:00am August 15, 2025 8:59amCephalexin 500 mg uyughflOoomwjzhitjn073JNETGmida times ggwtt093Ttoivdu 2024 1:00amJanuary 2024 2:56pmCarvedilol 12.5 mg glhflxZxdcgp54.5MGPOTwice dailyOctober 2024 9:46amComplies with drug therapyErgocalciferol (Vitamin D2) 1,250 mcg (50,000 unit) ggfzuiyXuseco89075 UNITPOevery weekOctober 2024 9:47amComplies with drug therapyFurosemide 20 mg yogqxtQbokmneaafdc04AZQMYlpik morningOctober 2024 9:47amOctober 2024 9:48amVenlafaxine 150 mg capsule,extended release 16wwBoaaat340NXPCHddld morningOctober 2024 9:48amComplies with drug therapy Immunizations Immunization Event Date Not Given Reason Dose Number [employer] Lot Number Vaccine Information Statement (VIS) Detail Administration Location COVID-19 mRNA-1273 (Moderna) December 17, 2020 COVID-19 mRNA-1273 (Moderna)January 14OVID-19 mRNA-1273 (Moderna)September 10, 2021Fluzone TIV High-Dose 65YR+August 29, 2024U8515EAFPG [facility] unspecified formulationOctober 2017influenza, unspecified formulationOctober 2018influenza, unspecified formulationOctober 2019 influenza, unspecified formulationSeptember 2020influenza, unspecified formulationSeptember neumococcal Polysacc. Vaccine, 23 valentMarch 2017 Procedures Procedure Date Performed Status MR lumbar spine wo con August 01, 2025 7:17 am completed MM screening mammo BI w/CAD July 02, 2025 3: 57pm completed Relevant Diagnostic Tests and/or Laboratory Data Laboratory Results Test Collection Date/Time Result Date/Time Result Interpretation Reference Range Result Comment Performing Site Urine Other Casts August 06, 2025 8:51am NONE SEEN #/LPFNONE SEENUrine Random CreatinineSeptember 2024 8:51am August 06, 2025 8:88cv293.50 mg/dL20.00-300.00Magnesium LevelSeptember 2024 9:01amSeptember 2024 9:01am2.1 mg/dL1.8-2.4Uric AcidSeptember 2024 9:01amSeptember 2024 9:01am5.1 mg/dL2.6-6.0Anion GapSeptember 2024 9:01amSeptember 2024 9:01am16.2Iron SaturationSeptember 2024 9:01amSeptember 2024 9:01am30.2 %Parathyroid Hormone (Intact) August 06, 2025 9:01amSeptember 2024 9:76qt789 pg/mLAbnormal (applies to non-numeric results)Performed at: [facility] [id number] Director: Junaid Sawyer PhD, Phone: [phone] Hydroxy Vitamin D TotalSeptember 2024 9:01amSept2024 9:01am 51.2 ng/mL<20 ng/mL Vit D jpwegvwgo22-<30 ng/mL Vit D zorlwwevfokt00-207 ng/mL Vit D sufficient>100 ng/mL Potential ToxicityFerritinSeptember 2024 9:01am August 06, 2025 9:01am74.0 ng/mL8.0-252.0HematocritSeptember 2024 9:01amSeptember 2024 9:01am40.5 %36.0-48.0Urine Other CrystalsSeptember 2024 8:51amNone Seen #/HPFNone SeenUrine Protein/Creatinine RatioSeptember 2024 8:51amSeptember 2024 8:51am0.17AlbuminSeptember 2024 9:01amSeptember 2024 9:01am3.9 g/dL3.4-5.0Iron LevelSeptember 2024 9:01amSeptember 2024 9:01am84.0 ug/dL50.0-170.0HemoglobinSeptember 2024 9:01amSeptember 2024 9:01am12.9 g/dL12.0-16.0Urine BacteriaSeptember 2024 8:51amTRACE #/HPFAbnormal (applies to non-numeric results)NONE SEEN Urine Random Total ProteinSeptember 2024 8:51amSeptember 2024 8:51am 22.3 mg/dLAbove high normal<=11.9BUN/Creatinine RatioSeptember 2024 9:01am August 06, 2025 9:01am14.0Total Iron Binding CapacitySeptember 2024 9:01amSeptember 2024 9:56xi571.0 ug/dL250.0-450.0Mean Corpuscular HemoglobinSeptember 2024 9:01amSeptember 2024 9:01am32.3 pg26.7-34.0 Urine BilirubinSeptember 2024 8:51amNEGATIVENEGATIVEBlood Urea Nitrogen August 06, 2025 9:01amSeptember 2024 9:01am25.0 mg/dLAbove high normal7.0-18.0Mean Corpuscular Hemoglobin ConcentSeptember 2024 9:01am August 06, 2025 9:01am31.9 g/dL29.9-35.2Urine Occult BloodSeptember 2024 8:51amNEGATIVENEGATIVECalcium LevelSeptember 2024 9:01amSeptember 2024 9:01am8.5 mg/dL8.5-10.1Mean Corpuscular VolumeSeptember 2024 9:01amSeptember 2024 9:09ka746.5 fLAbove high aonauo75.0-99.0Urine AppearanceSeptember 2024 8:51amCLEARCLEARChloride LevelSeptember 2024 9:01amSeptember 2024 9:33et959 mmol/W23-330Pfar Platelet Volume August 06, 2025 9:01amSeptember 2024 9:01am9.6 fL9.5-13.5Urine Color August 06, 2025 8:51amYELLOWYELLOWCarbon Dioxide LevelSeptember 2024 9:01amSeptember 2024 9:01am23.9 mmol/L21.0-32.0Platelet CountSeptember 2024 9:01amSeptember 2024 9:03lw346 10 3/eJ847-232Inybn Glucose (UA) August 06, 2025 8:51amNEGATIVE mg/dLNEGATIVECreatinineSeptember 2024 9:01amSeptember 2024 9:01am1.78 mg/dLAbove high normal0.55-1.02Red Blood CountSeptember 2024 9:01amSeptember 2024 9:01am3.99 10 6/uLBelow low normal4.20-5.40Urine KetonesSeptember 2024 8:51amNEGATIVE mg/dLNEGATIVE Estimated GFR ()August 06, 2025 9:01amSeptember 2024 9:41rc36Nvaad low normal>=60 mL/min/1.73m 2Red Cell Distribution WidthSeptember 2024 9:01amSeptember 2024 9:01am12.5 %11.0-15.0Urine Leukocyte EsteraseSeptember 2024 8:51amNEGATIVENEGATIVEEstimated GFR (Non- AmericanSeptember 2024 9:01amSeptember 2024 9:53vt33Toqua low normal >=60 mL/min/1.73m 2Corrected White Blood CountSeptember 2024 9:01am August 06, 2025 9:01am4.7 10 3/uL4.0-11.0Urine MucusSeptember 2024 8:51amNONE SEENNONE SEENGlucose LevelSeptember 2024 9:01amSeptember 2024 9:88cc746 mg/iA99-996Vswiy NitriteSeptember 2024 8:51amNEGATIVE NEGATIVEPotassium LevelSeptember 2024 9:01amSeptember 2024 9:01am4.1 mmol/L3.5-5.1Urine pHSeptember 2024 8:51am6.05.0-9.0Sodium LevelSeptember 2024 9:01amSeptember 2024 9:56fr701 mmol/T524-734Agqcz Protein August 06, 2025 8:51amNEGATIVE mg/dLNEG/TRACEPhosphorus LevelSeptember 2024 9:01amSeptember 2024 9:01am3.6 mg/dL2.6-4.7Urine RBCSeptember 2024 8:56oa2-3 #/HPF0-2Urine Specific GravitySeptember 2024 8:51am 1.0251.005-1.025Urine Squamous Epithelial CellsSeptember 2024 8:51amRARE #/LPFNONE/RAREUrine UrobilinogenSeptember 2024 8:51am1.0 EU/dL0.2-1.0Urine WBCSeptember 2024 8:31be7-4 #/HPFAbnormal (applies to non-numeric results) NONE SEENCreatinineSeptember 2024 7:28amSeptember 2024 8:05am1.91 mg/dLAbove high normal0.60-1.20[facility] [id number] [address] [place], [place] [id number] GFR (CKD-EPI)August 01, 2025 7:28amSeptember 2024 8:05am27.025 mL/MinLakehealth [facility]point [facility] Center [facility]tr [id number] [address] [place], [place] [id number] Creatinine Clearance (ChemSeptember 2024 7:28am August 01, 2025 8:05am25.93[facility] [id number] [address] [place] [address] 25[address]Stvalkd CreatinineSeptember 2024 7:36amSeptember 2024 7:38am1.9 mg/dLAbove high normal0.6-1.3ER/ESD physician is notified/shown all ISTAT results.Critical values may be confirmed by laboratorytesting ifdeemed necessary by ER attending doctor.[facility] [id number] [address] [place] [address] 83404Ybltnzv Estimated GFR (eGFR)August 01, 2025 7:36am August 01, 2025 7:38am27.197[facility] [id number] [address] [place], [place] [address] Diagnostic Imaging Reports Author Arnel Simon [facility] SystemAuthoredSeptember 2024 3:08pmReport Dictated Date/TimeDictated ByStatusRadiology ReportSept2024 3:08pm Arnel Simon II MDcomplete[facility] [place] [id number] MRI Report Signed Patient: Cassi Rodrigez MR#: [id number] : 1950 Acct:[id number] Age/Sex: 75 / F ADM Date: 5 Loc: MR Room: Type: [facility] Attending Dr: Tiana CHAMBERS Copies to: [...] Simon M.D. 08/01/2025 3:20 PM Dictation Location: [place] [address] Transcribed By: [facility] 08/01/25 1520 Dictated By: Arnel Simon II, MD 08/01/25 1508 Signed By: <Electronically signed by Arnel Simon II, MD in [place]> 08/01/25 1520 Vital Signs Vital Reading Result Reference Range Collection Date/Time Height 62 [in_i] July 02, 2025 2:27kgHfzhnv89.18 kgAugust 2024 2:58pmHeart Rate82 /min 60-100August 2024 2:58pmRespiratory rate12 /kat15-75Mivdwg 2024 2:58pmBP Dvvnuybd746 mm[Hg]100-140August 2024 2:58pmBP Ydlinwznr17 mm[Hg] 60-100August 2024 2:58pmBMI (Body Mass Index)34.7 kg/f8Gyauba 2024 2:83xjXnpkrp02 [in_i]August 01, 2025 7:59klGtfbhd40.18 kgSeptember 2024 7:42bqKdxtut49 [in_i]August 15, 2025 9:00ffApoods68.23 kgOctober 2024 9:41amBody Rxarhozwybr32.5 [degF]97.6-99.0October 2024 9:41amHeart Rate75 /adb81-669Kjmozgo 2024 9:41amRespiratory rate18 /cdb93-02Psaomaz 2024 9:41amOxygen saturation by Pulse %95-100Oct2024 9:41amBP Ggzqttgi898 mm[Hg]100-140October 2024 9:41amBP Nbqcijfzk40 mm[Hg] 60-100October 2024 9:41amBMI (Body Mass Index)33.5 kg/x1Uixkbdn 2024 9:81jrIxxsxv92 [in_i]August 28, 2025 9:25amHzlcsn09.00 kgOct2024 9:49amHeart Rate67 /cbm34-545Zfxfhff 14th, 2025 9:49amBP Sautenor219 mm[Hg] 100-140Oct2024 9:49amBP Mshineilc09 mm[Hg]60-100Oct2024 9:49amBMI (Body Mass Index)33.5 kg/u7Qoyxhyn2024 9:49am Advance Directives Advance Directive Response Recorded Date/ Time Advance Directives No July 10:19am Insurance Providers Guarantor Cassi Rodrigez Address [address] [place] [phone] Info.Home Phone: Payer Policy Id Subscriber's Name Subscriber Id Effectiv e Date Expiration Date Cate ESTES [id number] Cassi Kwanels [id number] [id number] Elite [id number] [id number] Health Plans [facility] [id number] [id number] [facility] [id number] [id number] Encounters Encounter Location(s) Arrival/Admit Date Discharge/Depart Date Provider(s) Departed Physician/Prov ider Office [facility] July 02, 2025 2:50pm July 02, 2025 3:57pm Broderick Joiner DO Non-patient / Non-visit -[facility] July 23, 2025 8:48am [facility] 7:15amSeptember 2024 7:16ARIN Tejedaon-patient / Non-visit- [facility] CoSeptember 2024 8:51amAivelisse Salazarr , MDDeparted Physician/Provider Office Visit-[facility] Neph SandOctober 2024 9:36amOctober 2024 10:06amAbdul Smita , MDDeparted Physician/Provider Office Visit-[facility] GastroOctober 2024 9:35amOctober 2024 10:15amAdonis Burnette [employer]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 Diagnosis Onset Date Admit Date Age-related [...] renal disease Unknown August 15, 2025 9:36am CKD (chronic kidney disease) stage 4, GFR 15-29 ml/min Unknown August 15, 2025 9:36am GERD (gastroesophageal reflux disease) Unknown August 15, 2025 9:36am Hypertensive chronic kidney disease with stage 1 through stage 4 chronic ki Unknown August 15, 2025 9:36am Secondary hyperparathyroidism Unknown Oc tober 2024 9:36am Nausea Unknown August 28 9:35am Assessments Diagnosis Onset Date Resolution Status Admit Date Age-related osteoporosis without current pathological fracture acuteAugust 2024 2:50pmChronic kidney diseaseacuteAugust 2024 2:50pm Gastroesophageal reflux disease with esophagitis without hemorrhageacuteAugus2024 2:50pmHistory of pancreatic canceracuteAugust 2024 2:50pm HypertensionacuteAugust 2024 2:50pmLumbar stenosis with neurogenic claudicationacuteAugus2024 2:50pmMajor depressionacuteAugust 2024 2:50pmMedicare annual wellness visit, subsequentnoneactiveAuun[facility]st 2024 2:50pmScreening mammogram for breast cancernoneactiveV[facility]ert 2024 2:50pm Anemia of renal diseaseacuteOctober 2024 9:36amCKD (chronic kidney disease) stage 4, GFR 15-29 ml/minacuteOctober 2024 9:36amGERD (gastroesophageal reflux disease)acuteOctober 2024 9:36amHypertensive chronic kidney disease with stage 1 through stage 4 chronic kiacuteOctober 2024 9:36amSecondary hyperparathyroidismacuteOctober 2024 9:36amNauseaacuteOctober 2024 9:35am Plan of Treatment Author Broderick Joiner [facility] 20[facility] 3:57pmI have instructed this patient on the recommended lifestyle changes, which includes [...] the correct procedure for obtaining home BP measurements:? - rest for 5 minutes w/o talking. [...] this patient to avoid lying flat after eating.?? I have also recommended to avoid eating 2 hours prior to bedtime.?? They were also informed that smaller, frequent [...] and recommended yearly mammograms. Author Katina Ordoñez [facility] SystemAuthoredOct2024 10:11amShe has longstanding CKD due to the HTN [...] Will Continue current dose of the amlodipine, Lasix, carvedilol and losartan. Advised her to monitor blood pressure at home and call office if stays above 140 over 90 mmHg. Hemoglobin is within the goal but has low iron stores. She had normal B12 and folate level. She had unremarkable workup for paraproteinemia. Will continue oral iron every other day. Will continue omeprazole and Zofran. Advised her to follow-up with PCP and GI for management. Future Tests Future scheduled test information is unavailable Pending Tests Test Name Ordered Date Scheduled Date Renal Function Panel August 15, 2025 10:02am 6 Months Future Visits Future appointment information is unavailable Referrals to Other Providers Referral information is unavailable Future Procedures Procedure Name Ordered Date Scheduled Date Disability Placard July 02, 2025 3:44pm Dipstick and MicroscopicOctober 2024 10:02am6 MonthsHemogram CBC Without DiffOctober 2024 10:02am6 MonthsIron and TIBC ProfileOctober 2024 10:03am6 MonthsFerritinOctober 2024 10:03am6 MonthsMagnesiumOctober 2024 10:02am6 MonthsProtein Creat Ratio Ur RandomOctober 2024 10:02am6 MonthsParathyroid Hormone IntactOctober 2024 10:02am6 MonthsUric Acid August 15, 2025 10:02am6 MonthsVitamin D 25 Hydroxy TotalOctober 2024 10:02am6 Months Future Medications Future medication information is unavailable Patient Instructions Patient instructions are unavailable
--- OUTSIDE RECORDS SUMMARY | 2025-09-06 10:08 | XMS_ITS ---
Author Organization [facility] Address [address] [place] [address] Care Team Providers Care Lay Out Technician Name Role Phone Broderick Joiner DO Primary Care Provider [phone] Kitty Valente MD Unavailable Un available Active Problems * This document contains information received from the source organization and may not represent a complete record from that organization. ProblemNoted DateDiagnosed DateMCI (mild cognitive impairment)05/21/2025Obesity, Class II, BMI 35-39.9005/21/2025Left arm pain10/24/2019Left-sided weakness 03/13/2019Paresthesia and pain of left xcykpyoqw03/29/3578Zbeuoa75/05/2018Family history of pancreatic adpnva4009/19/20189702Bzvggnu26/07/2018Other itnemleu08/07/2018 Abnormal weight loss08/07/2016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eld 10/08/2015Hypertropia of right eye10/08/20158787Ppvfjebwgz25/05/2015Sinus node qguigqpmnmv34/27/2015Cardiac pacemaker in situ05/23/2015 Overview (05/23/2015): DDDR By Dr Garner on 05/22/2015 Partial epilepsy with impairment of consciousness, txqxzopbkhm22/06/2015HTN (hypertension)05/14/20152522Uekpjjrutpo64/30/2015nticoagulated on Coumadin 05/14/2015Elevated alkaline phosphatase level05/14/2015New daily persistent npbzmxla20/05/9270Rgmbaxus21/12/2015Central line uwtzjtnsollg23/15/2014Right leg DVT03/09/2013Presence of IVC zvmxxw7203/09/2013mpullary aayziwqgt37/26/2011 Pancreas ahqtmf0201/29/2011 Current Treatment and Therapy Plans No current plan information found. Past Treatment and Therapy Plans Plan NameStart DateDiscontinue DateTreatment MedicationsDiscontinue ReasonPlan ProviderCyclesCENTRAL LINE FLUSH - Weekly x 24 weeksNo medications scheduled.Treatment CompleteMusSusan eugene, PA-C1 of 1 cycle started Resolved Problems ProblemNoted DateDiagnosed DateResolved VrkmPcxpppl28
--- OUTSIDE RECORDS SUMMARY | 2025-09-06 10:08 | XMS_ITS | Encounter Summary ---
Author Organization [facility] Address [address] [place] [address] Care Team Providers Care Sys Dir Name Role Phone Broderick Joiner DO Primary Care Provider [phone] Kitty Valente MD Unavailable Un available Source Comments In the event this information is protected by the Federal Confidentiality of Alcohol and Drug AbusePatient Records regulations: The Federal rules restrict any use of the information to criminally investigate or prosecute any alcohol or drug abuse patient.[facility] Encounter Details DateTypeDepartmentCare Team (Latest Contact Info)Otddlyirydz90/18/2025 Patient Msg Cardiology [address] [place] [address] [place] [address] [place] [address] Appointment Request Social History Tobacco UseTypesPacks/DayYears UsedDateSmoking Tobacco: NeverSmokeless Tobacco: NeverAlcohol UseStandard Drinks/WeekCommentsNo0 (1 standard drink = 0.6 oz pure alcohol)PHQ-2AnswerDate RecordedPHQ-2 [id number] Deprivation Index AnswerDate RecordedNational Score (1-100), lower number is lower risk63 09/08/2023State Score (1-10), lower number is lower enag3623Data from: https://www.neighborhoodatlas.[facility].edu/. Last address used for [address]CommentsNoSex and Gender Information ValueDate RecordedSex Assigned at BirthNot on fileLegal ZwwPpmnxk43/02/2012 10:00 AM ESTGender IdentityNot on fileSexual OrientationNot on filedocumented as of this encounter Functional Status * Are you deaf or do you have serious difficulty hearing?AnswerDate of FwroqgwjdrNvkfowUw09/05/2015 11:02 AM Vita Oconnell) (Hist), RN * Are you blind or do you have serious difficulty seeing, even when wearing glasses?AnswerDate of RnkcjrreqkDbpuwgNk04/05/2015 11:02 AM Vita Oconnell) (Hist), RN * Do you have serious difficulty walking or climbing stairs?AnswerDate of UhyxmyzqthOluijmLm78/05/2015 11:02 AM Vita Oconnell) (Hist), RN * Do you have difficulty dressing or bathing?AnswerDate of AssessmentAuthorYes 08/19/2015 11:02 AM Vita Oconnell) (Hist), RN * Because of a physical, mental, or emotional condition, do you have difficulty doing errands alone such as visiting a doctor's office or shopping?AnswerDate of QncnskqbooTwsckbUni96/05/2015 11:02 AM Vita Oconnell) (Hist), RN documented as of this encounter Mental Status * Because of a physical, mental, or emotional condition, do you have serious difficulty concentrating, remembering, or making decisions?AnswerEntry Date OmlttjIj96/05/2015 11:02 AM Vita Oconnell) (Hist), RN documented in this encounter Plan of Treatment DateTypeDepartmentCare Team (Latest Contact Info)Rlmcmddykzl31/16/2025 10:30 AM ESTOffice Visit Neurology [address] [place] [address] [place] [address] [place] [address] Botox11/27/2025 10:00 AM ESTOffice Visit Cardiology [address] [place] [address] Bessy Daniels, [employer] F[employer]ER.HOSPICE CLINICAL MANAGER [address] [place] [address] Yearly Follow Up01/09/2026 11:00 AM ESTOffice Visit Neurology [address] [place] [address] Ross Villar MD, PhD [address] [place] [address] annaul follow updocumented as of this encounter Goals GoalPatient Goal TypeAssociated ProblemsRecent ProgressPatient-Stated?Author Blood Pressure < 130/80 Blood Yzpfzbpp538/74(07/18/2025 9:45 AM EDT)Kitty Kirkpatrick MD documented as of this encounter Visit Diagnoses Not on filedocumented in this encounter Care Teams Team MemberRelationshipSpecialtyStart DateEnd Date Broderick Joiner DO [address] [place] [address] PCP - GeneralInternal Gwxfrbvf03/7/18 Kitty Valente MD [address] [place] [address] Primary Staff PhysicianCardiology01/31/19documented as of this encounter
--- OUTSIDE RECORDS SUMMARY | 2025-09-06 10:08 | XMS_ITS | Clinical Summary ---
Author Organization [facility] Address [address] [place] [address] Phone Care Team Providers Care Custody Assistant Name Role Phone Unavailable Primary Care Provider Unavailabl e Social History Tobacco UseTypesPacks/DayYears UsedDateSmoking Tobacco: Never Assessed CommentsUnknownSex and Gender InformationValueDate RecordedSex Assigned at Not on fileLegal GecVzgdhp36/25/2022 9:01 PM ESTGender IdentityNot on fileSexual OrientationNot on file Plan of Treatment Health MaintenanceDue DateLast DoneCommentsCT Iixvbufpdiol1950Colonoscopy 1950Colorectal Cancer Zjsinlnju1950FIT-DNA (Cologuard)1950FIT 1950Lipid Panel1950Medicare Annual Wellness Visit (AWV)1950 Aajeivecxaliq1950MMR Vaccines (1 of 1 - Standard series)1951 Hepatitis C Ynkwsaexk89/08/1968DTaP/Tdap/Td Vaccines (1 - Tdap)1972 Pneumococcal Vaccine (1 of 1 - PCV)2000Zoster Vaccines (1 of 2)2000 Bone Density Scan2015RSV High Risk: (Elderly (60+) or Population) (1 - 1-dose 75+ series)2025Influenza Vaccine (#1)2025OVID-19 Vaccine (1 - 2024- season)2025HIB VaccinesAged OutNo longer eligible based on patient's age to complete this topicHPV VaccinesAged OutNo longer eligible based on patient's age to complete this topicHepatitis A VaccinesAged OutNo longer eligible based on patient's age to complete this topicHepatitis B VaccinesAged OutNo longer eligible based on patient's age to complete this topic IPV VaccinesAged OutNo longer eligible based on patient's age to complete this topicMeningococcal VaccineAged OutNo longer eligible based on patient's age to complete this topicRotavirus VaccinesAged OutNo longer eligible based on patient's age to complete this topic Insurance
--- OUTSIDE RECORDS SUMMARY | 2025-09-06 10:08 | XMS_ITS | Clinical Summary ---
Author Organization [facility] Address [address] [place] [address] Care Team Providers Care Data Processing Consultant Name Role Phone Broderick Joiner Primary Care Provider [phone] Kitty Valente MD Unavailable Un available Allergies Active AllergyReactionsCriticalityNoted TbfeLcdohxdfXunauqnwrkqziXvuf97/19/2015 WrspxccfqcXpbpLigqll50/10/2013 Medications * This document contains information received from the source organization and may not represent a complete record from that organization. MedicationSigDispense QuantityRefillsLast FilledStart DateEnd DateStatus omeprazole (PRILOSEC) 40 mg capsule Take 1 capsule by mouth once daily.ctive warfarin (COUMADIN) 4 mg tablet Take 1 tablet by mouth once daily.ctive ondansetron orally disintegrating (ZOFRAN ODT) 4 mg disintegrating tablet 11/25/2020ctive amitriptyline (ELAVIL) 25 mg tablet Take 25 mg by mouth daily at bedtime.Active carvedilol (COREG) 12.5 mg tablet Take 12.5 mg by mouth twice daily with meals.Active amLODIPine (NORVASC) 5 mg tablet Take 5 mg by mouth once daily.06/23/2022ctive levETIRAcetam (KEPPRA) 750 mg tablet Take 1 tablet by mouth two times a day. 180 tablet /ctive ergocalciferol 50,000 unit capsule (VITAMIN D2, DRISDOL) Take 1 capsule by mouth one time a week.Active ferrous sulfate 325 mg (65 mg iron) tablet Take 1 tablet by mouth every 48 hours.Active venlafaxine ER (EFFEXOR XR) 150 mg 24 hr capsule Take 150 mg by mouth once daily.Active losartan (COZAAR) 25 mg tablet TAKE 1 TABLET BY MOUTH ONCE EVERY MORNING FOR HTMActive linaCLOtide (LINZESS) 72 mcg capsule Take 72 mcg by mouth.4Active doxycycline hyclate (VIBRAMYCIN) 100 mg capsule Take 100 mg by mouth.5Active zonisamide (ZONEGRAN) 100 mg capsule Indications:Localization-related (focal) (partial) symptomatic epilepsy and epileptic syndromes with complex partial seizures, intractable, without status epilepticus (HCC)Take 3 capsules by mouth daily at bedtime. 270 capsule 6Active Active Problems ProblemNoted DateDiagnosed DateMCI (mild cognitive impairment)05/21/2025Obesity, Class II, BMI 35-39.9005/21/2025Left arm pain10/24/2019Left-sided weakness 03/13/2019Paresthesia and pain of left swsqsgpay49/29/4879Ajqeia93/05/2018Family history of pancreatic dtrryn6509/19/20182334Ofnakje11/07/2018Other eltushzu56/07/2018 Abnormal weight loss08/07/2016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eld 10/08/2015Hypertropia of right eye10/08/20153618Hhgfaqebeg52/05/2015Sinus node coqpkkxoqlw15/27/2015Cardiac pacemaker in situ05/23/2015 Overview (05/23/2015): DDDR By Dr Garner on 05/22/2015 Partial epilepsy with impairment of consciousness, szbjcnohvnw48/06/2015HTN (hypertension)05/14/20155630Ngpihseprnw33/30/2015nticoagulated on Coumadin 05/14/2015Elevated alkaline phosphatase level05/14/2015New daily persistent kdempnbm14/05/2363Ggczvurf71/12/2015Central line hncmvoecvmhw79/15/2014Right leg DVT03/09/2013Presence of IVC ufmcoq4803/09/2013mpullary aemleawju26/26/2011 Pancreas eiijdy5101/29/2011 Resolved Problems ProblemNoted DateDiagnosed DateResolved WillYmfghef19 Encounters DateTypeDepartmentCare BbxsLdivgrrbwic39/18/2025 Patient Msg Cardiology [address] [place] [phone] Kitty Valente MD Appointment Rkkhjqu6307/25/2025Orders Only Pseudo [place] [address] Kitty Valente MD 07/18/2025 10:00 AM EDTOffice Visit Neurology [address] [place], [place] [address] Ashley Tran MD Intractable 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 aura and without status migrainosus (Primary Dx)07/12/20259314Czynad60/08/2025Refill Neurology [address] [place], [place] [id number] Lauren Otero APRN.[employer] Refill Requestfrom Last 3 Months Family History Medical HistoryRelationCommentsLiver Ca[other]FatherNo Ocular DiseaseOtherBreast CancerSister 6RelationStatusCommentsBrother 1AliveBrother 2AliveFatherDeceased MotherAliveOtherSister 1AliveSister 2AliveSister 3AliveSister 4AliveSister 5 DeceasedSister 6 Social History Tobacco UseTypesPacks/DayYears UsedDateSmoking Tobacco: NeverSmokeless Tobacco: Never Tobacco Cessation:Counseling Given: Not Answered Alcohol UseStandard Drinks/WeekCommentsNo0 (1 standard drink = 0.6 oz pure alcohol)PHQ-2AnswerDate RecordedPHQ-2 bgyie825rea Deprivation Index AnswerDate RecordedNational Score (1-100), lower number is lower risk63 09/08/2023State Score (1-10), lower number is lower ewwd4733Data from: https://www.neighborhoodatlas.medicine.[facility].edu/. Last address used for f[address] [place] [address]/08/2023CommentsNoSex and Gender Information ValueDate RecordedSex Assigned at BirthNot on fileLegal LakCznlgw29/02/2012 10:00 AM ESTGender IdentityNot on fileSexual OrientationNot on file Last Filed Vital Signs Vital SignReadingTime TakenCommentsBlood Knvovodn786/7409 9:45 AM EDT Qksjm255207/18/2025 9:45 AM SDQVctrmnoabhr91.4 ??C (97.6 ??F)12/23/2023 9:02 AM ESTRespiratory Sysm897311/28/2021 1:11 PM ESTOxygen Sjhoeftvdp908%12/23/2023 9:02 AM ESTInhaled Oxygen Concentration--Vtafax38.1 kg (192 lb 0.3 oz)07/18/2025 9:45 AM KLPNtsdma095.5 cm (5' 2 )07/18/2025 9:45 AM EDTBody Mass Index35.12 07/18/2025 9:45 AM EDT Plan of Treatment DateTypeDepartmentCare Team (Latest Contact Info)Afhrrzarqwk62/16/2025 10:30 AM ESTOffice Visit Neurology [address] [place] [address] [place] [address] [place] [address] Botox11/27/2025 10:00 AM ESTOffice Visit Cardiology [address] [place] [address] Bessy Daniels APRN.[employer] [address] [place] [address] Yearly Follow Up01/09/2026 11:00 AM ESTOffice Visit Neurology [address] [place] [address] Ross Villar MD, PhD [address] [place], [place] [address] annaul follow upHealth MaintenanceDue DateLast DoneCommentsAnnual PCP Team Chronic Disease Visit1968Hepatitis C Rwddyxoyi47/08/1968DTaP,Tdap,Td Vaccine (1 - Tdap)1969CT Gmwgjzbmzaea71/08/3355Rkdusmbdhnq94/08/1995Fecal Occult Blood1995Lipid Jlksxameu57/08/2993Pimwfeqenruzi66/08/1995Shingrix Vaccine (1 of 2)2000Bone Density Fpuoyvoiu89/08/2015Pneumococcal Vaccine: 50+ (2 of 2 - PCV)Cologuard (FIT-DNA) Colorectal Cancer Girbytqyp06/16/2022dvance Directive Oaanablueu36/01/2025 Medicare Advantage Annual Wellness Visit11/15/2024RSV Vaccine (1 - 1-dose 75+ series)2025ovid-19 Vaccine ( - 2024- season), 01/14/2021, 12/17/2020Influenza Vaccine (#1), 08/31/2023, 07/30/2022, Additional history existsDiabetes Gtztoqcne08, 11/28/2021, 11/29/2020, Additional history exists Goals GoalPatient Goal TypeAssociated ProblemsRecent ProgressPatient-Stated?Author Blood Pressure < 130/80 Blood Ljhaekjy198/74(07/18/2025 9:45 AM EDT)Kitty Kirkpatrick MD Medical Devices ImplantedTypeAreaManufacturerDevice IdentifierShelf Expiration DateModel / Serial / [id number] Capsurefix Novus [id number] Implanted:05/22/2015 (Quantity not on file)LeadMEDTRONIC [id number] CAPSUREFIX NOVUS / [id number] / [id number] Capsurefix Novus [id number] Implanted:05/22/2015 (Quantity not on file)LeadMEDTRONIC [id number] CAPSUREFIX NOVUS / [id number] / Pacemaker-A2dr01 Advisa [id number] Implanted:05/22/2015 (Quantity not on file)PacemakerMEDTRONIC [id number] Advis[address] COBOS / [id number] / Plate Bn 12mm Cmf Ti 2 H Lp - [id number] Implanted:Qty: 3 on 08/16/2015 at [facility] [id number] / / Pin Crss Sd Scr 1.5x4mm - [id number] Implanted:Qty: 6 on 08/16/[address] [facility] [id number] / / Procedures Procedure NamePriorityDate/TimeAssociated DiagnosisCommentsREM INTERROG PM/LDLS PM <90 D PHYS/OUKMplnqhj34/10/2025 2:11 PM EDT COMPREHENSIVE METABOLIC VIQKVWfspuvz28/15/2024 1:57 PM EDT Focal epilepsy with impairment of consciousness, intractable (HCC) from Last 3 Months or Most Recently Relevant to Health Maintenance Results * CARDIAC IMPLANTABLE DEVICE CHECK REMOTE (07/25/2025 2:11 PM EDT)ComponentValue Ref RangeTest MethodAnalysis TimePerformed AtPathologist SignatureDate Time Interrogation [id number] CARDIACType Interrogation Session RemoteMURJ CARDIACImplantable Pulse Generator ManufacturerMedtronicMURJ CARDIACImplantable Pulse Generator TypePacemakerMU CARDIACImplantable Pulse Generator ModelAdvisa DR COBOS [id number] CARDIACImplantable Pulse Generator Serial [id number] CARDIACImplantable Pulse Generator Implant Date 17154393WWAY CARDIACBattery Remaining Longevity7.0MURJ CARDIACBattery Voltage 2.870MURJ CARDIACBattery EX[employer] EMISSIONS 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 TECHNICIAN Trigger2.830MURJ CARDIACBattery StatusOKMURJ CARDIACBrady Statistic RA Percent Paced99.95MURJ CARDIACBrady Statistic RV Percent Paced0.03MURJ CARDIACAtrial Tachy Statistic AT/AF [place] Percent0.00 MURJ CARDIACLead Channel Sensing Intrinsic Amplitude1.750MURJ CARDIACLead Channel Setting Sensing Sensitivity0.30MURJ CARDIACLead Channel Impedance Qjnad378RBCA CARDIACLead Channel Pacing Threshold Amplitude0.500MURJ CARDIAC Lead Channel Pacing Threshold Pulse Width0.4MURJ CARDIACLead Channel Measurements Date and Bcgp9505-80-99FAFD CARDIACLead Channel Setting Pacing Amplitude1.500MURJ CARDIACLead Channel Setting Pacing Pulse Width0.4MURJ CARDIACLead Channel Sensing Intrinsic Bktfpclet62.125MURJ CARDIACLead Channel Setting Sensing Sensitivity0.90MURJ CARDIACLead Channel Impedance Eecxk103TZAA CARDIACLead Channel Pacing Threshold Amplitude0.875MURJ CARDIACLead Channel Pacing Threshold Pulse Width0.4MURJ CARDIACLead Channel Measurements Date and Znfr0332-80-92GRVH CARDIACLead Channel Setting Pacing Amplitude2.000MURJ CARDIACLead Channel Setting Pacing Pulse Width0.4MURJ CARDIACBrady Setting Mode (NBG Code)AAIR<=>DDDRMURJ CARDIACBrady Setting Lower Rate Hresx97EAHQ CARDIACBrady Setting AT Mode Switch Jgnb448CQCC CARDIACBrady Setting Maximum Tracking Hbxi715TFEL CARDIACBrady Setting Maximum Sensor Eiyx011KMLF CARDIAC Godfrey Setting PAV Fpftd553BKAJ CARDIACBrady Setting LOREE Gnbkm341LVCP CARDIAC Lead Channel Setting Sensing PolarityBipolarMURJ CARDIACLead Channel Setting Sensing PolarityBipolarMURJ CARDIACLead Channel Setting Pacing PolarityBipolar MURJ CARDIACLead Channel Setting Pacing PolarityBipolarMURJ CARDIACLead Channel Pacing Threshold PolarityBipolarMURJ CARDIACLead Channel Pacing Threshold PolarityBipolarMURJ CARDIACZone Setting Type CategoryAT/AFMURJ CARDIACRate 1171MURJ CARDIACTherapiesSome Rx OffMURJ CARDIACZone Setting StatusMonitorMURJ CARDIACZone GH7FNBA CARDIACZone Setting Type CategoryVTMURJ CARDIACRate 1150MURJ CARDIACZone Setting StatusENABLEDMURJ CARDIACZone WY5WMLV CARDIACImplantable Lead ManufacturerMedtronicMURJ CARDIACImplantable Lead [id number] CapSureFix NovusMURJ CARDIACImplantable Lead LocationRight Atrium MURJ CARDIACImplantable Lead Connection StatusConnectedMURJ CARDIACImplantable Lead Serial [id number] CARDIACImplantable Lead Implant MURJ CARDIACImplantable Lead ManufacturerMedtronicMURJ CARDIACImplantable Lead [id number] CapSureFix NovusMURJ CARDIACImplantable Lead LocationRight VentricleMURJ CARDIACImplantable Lead Connection StatusConnectedMURJ CARDIAC Implantable Lead Serial [id number] CARDIACImplantable Lead Implant [id number] CARDIACSpecimen (Source)Anatomical Location / Laterality Collection Method / VolumeCollection TimeReceived Time07/25/2025 2:11 PM EDT Narrative SAL CARDIAC - 08/04/2025 7:03 PM EDT Normal Remote: No Events * Normal Device Function * Alerts or events: None * Battery: OK, 7 mos * Sensing, impedance and thresholds reviewed * Programmed parameters reviewed * Presenting rhythm: AP/VS * Heart Rate Histograms reviewed * No significant changes noted * AP 99.9%, PATROL JUDGE <0.1%. NOTE TO PROVIDERS: Cardiac Implanted Devices [...] No significant changes noted * AP 99.9%, PATROL JUDGE <0.1%. NOTE TO PROVIDERS: Cardiac Implanted Devices Flowsheets contain detailed Programming and Evaluation data. Full Docket/PDF found below under Scanned Documents . Authorizing ProviderResult TypeResult StatusChristine Pascual Vidal MD CARDIOLOGYFinal ResultPerforming OrganizationAddressCity/State/ZIP CodePhone Number [facility] CARDIAC * (ABNORMAL) COMPREHENSIVE METABOLIC PANEL (06/29/2024 1:57 PM EDT)Component ValueRef RangeTest MethodAnalysis TimePerformed AtPathologist Signature Protein, Total7.06.3 - 8.0 g/dL06/29/2024 2:36 PM [facility]TFA[facility] Albumin4.33.9 - 4.9 g/dL06/29/2024 2:36 PM EDTFAIRVIEW LABORATORYCalcium, Total8.88.5 - 10.2 mg/dL06/29/2024 2:36 PM EDTFAIRVIEW LABORATORYBilirubin, Total0.40.2 - 1.3 mg/dL06/29/2024 2:36 PM EDTFAIRVIEW LABORATORYAlkaline Hdhorvflser565(H)34 - 123 U/L06/29/2024 2:36 PM EDTFAIR[facility] BQNQGAMRKRJWL8344 - 35 U/L06/29/2024 2:36 PM [facility] BCUFITOXXUXQQ232 - 38 U/L06/29/2024 2:36 PM [facility]TFB[facility] PMEMFKMUGTFvzarac170(H)74 - 99 mg/dL06/29/2024 2:36 PM T [facility] LABORATORYComment: The [place] Diabetes Association (ADA) provides guidance for cutoff values for fasting glucose andrandom glucose. The ADA defines fasting as no [...] Standards of Medical Care in Diabetes 2016, [place] Diabetes Association. Diabetes Care. 2016.39(Suppl 1). BUN34(H)7 - 21 mg/dL06/29/2024 2:36 PM [facility] LABORATORYCreatinine1.73(H) 0.58 - 0.96 mg/dL06/29/2024 2:36 PM [facility] VSHOIBJQALYsdsyv201026 - 144 mmol/L06/29/2024 2:36 PM [facility] LABORATORYPotassium5.13.7 - 5.1 mmol/L 06/29/2024 2:36 PM [facility] XJEWMRICENTuvalbwt018(H)98 - 107 mmol/L06/29/2024 2:36 PM [facility] VXDNCHIZUCNH55586 - 30 mmol/L06/29/2024 2:36 PM [facility] LABORATORYAnion Gap88 - 15 mmol/L06/29/2024 2:36 PM [facility] Estimated Glomerular Filtration Rate31(L)>=60 mL/min/1.73m 06/29/2024 2:36 PM [facility]ORATORYComment:Estimated Glomerular Filtration Rate (eGFR) is calculated using the 2020 CKD-EPI creatinine equation. This equation utilizes serum creatinine, sex, and age as parameters. The creatinine assay has traceable calibration to isotope dilution-mass spectrometry. Refer to KDIGO guidelines for clinical interpretation. In patients with unstable renal function, e.g. those with acute kidney injury, the eGFRmay not accurately reflect actual GFR.Specimen (Source)Anatomical Location / LateralityCollection Method / VolumeCollection TimeReceived TimeBloodBLOOD SPECIMEN / Unknown Venipuncture / Kaafykg0906/29/2024 1:57 PM EDT06/29/2024 1:57 PM EDT Narrative Authorizing ProviderResult TypeResult StatusRoss Villar MD, PhDLABORATORY Final ResultPerforming OrganizationAddressCity/State/ZIP CodePhone Number [facility] [address] [place] [address], from Last 3 Months or Most Recently Relevant to Health Maintenance Insurance Care Teams Team MemberRelationshipSpecialtyStart DateEnd Date Broderick Joiner DO [address] [place], [place] [id number] PCP - GeneralInternal Njqxdtgg26/7/18 Kitty Valente MD [address] [place] [address] Primary Staff PhysicianCardiology01/31/19
--- OUTSIDE RECORDS SUMMARY | 2025-09-06 10:08 | XMS_ITS | Clinical Summary ---
Author Organization [facility] Address [id number] [place] [address] Care Team Providers Care Armhole Feller Handstitching Machine Name Role Phone Shashi Lisa DO Primary Care Provider Nilsa gonzalez Allergies Active AllergyReactionsCriticalityNoted DateCommentsDexamethasoneRashLow 10/03/20155898Pltexatktl65/18/2017 Medications MedicationSigDispense QuantityRefillsLast FilledStart DateEnd DateStatus melatonin (CIRCADIN) 5 mg tablet Take 5 mg by mouth.Active venlafaxine XR (EFFEXOR XR) 75 mg 24 hr capsule Take 75 mg by mouth.04/28/2017Active amLODIPine (NORVASC) 10 mg tablet Take 1 tablet (10 mg total) by mouth daily for 180 days. 90 tablet Active omeprazole (PriLOSEC) 40 mg capsule Take 1 capsule (40 mg total) by mouth daily for 180 days. 90 capsule Active warfarin (COUMADIN) 4 mg tablet Take 1 tablet (4 mg total) by mouth daily for 180 days. 90 tablet Active hydrALAZINE (APRESOLINE) 50 mg tablet Take 25 mg by mouth 3 (three) times a day.10/14/2017Active levETIRAcetam (KEPPRA) 1000 mg tablet Take 1.5 tablets by mouth 2 (two) times a day.12/28/2016Active zonisamide (ZONEGRAN) 100 mg capsule Take 100 mg by mouth nightly.12/06/2017Active Active Problems No known active problems Family History Medical HistoryRelationNameCommentsPancreatic cancerFatherRelationNameStatus CommentsFatherDeceased Social History Tobacco UseTypesPacks/DayYears UsedDateSmoking Tobacco: NeverSmokeless Tobacco: NeverAlcohol UseStandard Drinks/WeekCommentsYes0 (1 standard drink = 0.6 oz pure alcohol)ChildcareAnswerDate UtawmablMiddnzejtXeshcbz20/06/2019EmploymentAnswer Date FvyqwijsIntzkauuzpIgpduqj93/06/2019Purpose - LifeAnswerDate RecordedPurpose and direction in apzaEgtcunh57/11/2021CommentsUnknownSex and Gender InformationValueDate RecordedSex Assigned at BirthNot on fileLegal SexFemale 06/20/2015 12:04 PM EDTGender IdentityNot on fileSexual OrientationNot on file Last Filed Vital Signs Vital SignReadingTime TakenCommentsBlood Hvunwxwv027/62012/20/2017 10:30 AM EST Yurpq883612/20/2017 10:30 AM ESTTemperature--Respiratory Xdpy966612/20/2017 10:30 AM ESTOxygen Dsqjfcleim49%12/20/2017 10:30 AM ESTInhaled Oxygen Concentration-- Rosxrb98 kg (150 lb)12/20/2017 10:30 AM FOBZohije699.6 cm (5' 4 )12/20/2017 10:30 AM ESTBody Mass Index25.75012/20/2017 10:30 AM EST Plan of Treatment Health MaintenanceDue DateLast DoneCommentsDepression Zcbdfpqvo20/08/1962Tobacco Bnnzrzjfd14/08/1962DTaP,Tdap and Td Vaccines (1 - Tdap)1969Zoster (Shingles) Vaccine (1 of 2)2000Fall Risk Dlwlhtnos02/08/2015Influenza Hybysbg3407/16/2025 Medical Devices Not on file Insurance * Guarantor: Cassi Rodrigez TypeRelation to PatientDate of BirthPhone Billing AddressPersonal/OpmzvhCvgu1950 [phone] [address] Care Teams Team MemberRelationshipSpecialtyStart DateEnd Date Shashi Lisa DO [facility] - General12/17/17
--- OUTSIDE RECORDS SUMMARY | 2025-09-06 10:13 | XMS_ITS | CCD ---
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 Name Role Phone Bertram Sanders Unavailable [...] Care Provider Ball, DO Broderick Attending Provider [phone] Niki Weeks Unavailable MD Niki Weeks Attending Provider Romeo Millard MD, Kitty Unavailable Un available Ball DO, Broderick Quinteros Primary Care Provider Ball, DO Broderick Primary Care Provider Ball, DO Broderick Attending Provider WILIAN Mcfadden Attending Provider Ball, DO Broderick Primary Care Provider Ball, DO Broderick Attending Provider Ball, DO Broderick Primary Care Provider Ball, DO Broderick Attending Provider Ball, DO Broderick Primary Care Provider LEE, BRODERICK Primary Care Physician [phone] Ap, Shashi B Referring Unavailable Rhiew, Shashi B Admitting Unavailable Rhiew, Shashi B Attending Unavailable Rhiew, Shashi B Referring Unavailable Rhiew, Shashi B Admitting Unavailable Rhiew, Shashi B Attending Unavailable Rhiew, Shashi B Admitting Unavailable Rhiew, Shashi B Attending Unavailable Rhiew, Shashi B Referring Unavailable Rhiew, Shashi B Admitting Unavailable Rhiew, Shashi B Attending Unavailable Rhiew, Shashi B Referring Unavailable OYULIETKWU, Mblloydfo Consulting Unavailable MD Karol NUNEZfo Consulting Unavailable OJUKWU, Mbanefo Consulting Unavailable OJUKWU, Mbanefo Consulting Unavailable OJUKWU, Mbanefo Consulting Unavailable OJUKWU, Mbanefo Consulting Unavailable OJUKWU, Mbanefo Consulting Unavailable OJUKWU, Mbanefo Consulting Unavailable OJUKWU, Mbanefo Consulting Unavailable OJUKWU, Mbanefo Consulting Unavailable Shashi De Souza Admitting Unavailable Shashi De Souza Attending Unavailable Shashi De Souza Referring Unavailable OYULIETKNeoUMD Mblloydfo Consulting Unavailable OJUKWU, Mbanefo Consulting Unavailable OJUKWU, [...] Care Provider Kristel Low APRN Emergency Provider [phone] KITTY VALENTE Attending Unava ilBRODERICK Mcclure Primary Care Unavailable KITTY VALENTE Referring Unava BRODERICK Prasad Primary Care Unavailable ELIAN JONES Attending Unavailable ALEJANDRO VILLAR Referring Unavailable BRODERICK HOWARD Primary Care Unavailable Broderick Howard DO Primary Care Provider [phone] Broderick Howard DO Attending Provider [phone] RANDA REILLY Attending Unavailable RANDA REILLY Referring Unavailable BALL, BRODERICK E Primary Care Unavailable RANDA REILLY M Attending Unavailable RANDA REILLY M Referring Unavailable BALL, BRODERICK E Primary Care Unavailable RANDA REILLY M Attending Unavailable REILLY, RANDA M Referring Unavailable BALL, BRODERICK E Primary Care Unavailable ALEJANDRO VILLAR Attending Unavailable BALL, BRODERICK E Primary Care Unavailable SVITLANA MAYFIELD Attending Unavailable TOMMIE, RANDA M Referring Unavailable BALL, BRODERICK E Primary Care Unavailable Trudi SALES TEAM MANAGER-C, Tiana Quinteros Other Provider Leandra Gama MD Attending Provider Trudi SALES TEAM MANAGER-C, Tiana Quinteros Attending Provider Kristel Low Attending Unavailable Ball, Brodercik Primary Care Unavailable Kristel Low Admitting Unavailable Trudi, Tiana E Admitting Unavailable Trudi, Tiana E Attending Unavailable Ball, Broderick Primary Care Unavailable Trudi, Tiana E Admitting Unavailable Trudi, Tiana E Attending Unavailable Ball, Broderick Primary Care Unavailable Katina Ordoñez MD Attending Provider [phone] Hank Maher APRN Attending Provider Kasey PAUL, Keith Barron Attending Unavailable Allergies Allergy ClassificationReported Allergen(s)Allergy TypeDate of OnsetReaction(s) Facility (20 sources)Dexamethasone; Translations: [dexAMETHasone]Drug Zxagetf85-25-9651 [facility] ([facility])pregabalin; Translations: [pregabalin]Drug Zdlcpwa09-95-2838Zgqm [facility] (20 sources)rifAXIMinDrug Iqntimp19-70-4931lppbFndujufcsKindred Hospital Lima (1 source)DexamethasoneDrug AllergyThe [facility] (6 sources)pregabalin; Translations: [Lyrica]Drug Uvfvnbf53-84-5689Mmx [facility] (20 sources)DexamethasoneDrug Qkfhrwr74-48-5162Elazwel, Unknown Reaction [facility] (8 sources)Allergies ReconciledPropensity to adverse reactionsUnkMosaic Life Care at St. [facility] [employer]Mail Other (8 sources)patient allergy list reviewed by nurse or physiciaPropensity to adverse befcohjjg61-72-7547Ppnkhza:[facility] ServicesKeepFu Other (3 sources)PregabalinAllergy to zajwrcaca32-58-7420Zikw, [facility] (3 sources)rifAXIMinDrug Imftnfb99-60-4173HnjbACNP Healthcare (1 source)DexamethasoneDrug Ibppcug69-05-5460BpcckqjbyPromedica [facility] (1 source)pregabalinDrug Aoijnfo95-04-0131RjlyzjashPromedica [facility] (1 source)rifAXIMinDrug Fzcdzkg77-55-3679HrvnjdaxaPromedica [facility] Repository Medications Current Medications MedicationDrug Class(es)DatesSig (Normalized)Sig (Original)acetaminophen 500 mg oral tablet (20 sources)Start: 01-98-4790goya 500 mg by mouth every six hours as needed for painTylenol 500 mg, Oral, q6hr, PRN as needed for pain, Refills(s) 0 Start Date: 10/25/24 Status: OrderedStart: 07-20-2023 End: 46-24-8424qkhu 2 capsules by mouth every six hours as needed for pain Acetaminophen (Tylenol Extra Strength) 500 mg Capsule Discontinued 1000 MG PO Q6H as needed for Pain July 20, 2023 12:00am February 08, 2024 11:20am acetaminophen 325 mg / oxyCODONE hydrochloride 5 mg oral tablet (1 source)Opioid AgonistStart: 11-02-2024 End: 02-82-9629Retrchbl 5 mg-325 mg oral tablet 1 tab(s), Oral, TID Pain 4-7 for 7 day(s), 21 tab(s), Refill(s) 0,[facility]/pharmacy #[id number], 157, cm, 10/25/24 11:44:00 EST, Height/Length Dosing, 87.7, kg, 10/25/24 11:44:00 EST, Weight Dosing Start Date: 11/02/24 Stop Date: 11/09/24 Status: OrderedamLODIPine 5 mg oral tablet (20 sources)Dihydropyridine Calcium Channel BlockerStart: 39-41-4572pcej 1 tablet by mouth once dailyAmlodipine 5 mg tablet Active 5 MG PO Daily February 22, 2025 10:42am Complies with drug therapyStart: 02-13-2025 End: 85-47-5735vzim 1 tablet by mouth once daily in the morning for hypertension Amlodipine 5 mg tablet Discontinued 0 .ROUTE .COMPLEX 90 February 13, 2025 7:42am February 22, 2025 10:43am TAKE 1 TABLET BY MOUTH EVERY MORNING FOR HYPERTENSION Start: 06-23-2022 End: 14-31-7947zzqj 1 tablet by mouth once dailyAmlodipine 5 mg tablet Discontinued 5 MG PO Daily February 08, 2024 12:00am June 08, 2024 2:29pmStart: 01-06-2021 End: 31-97-3244uirh 1 tablet by mouth once dailyAmlodipine 10 mg tablet Discontinued 10 MG PO Daily January 06, 2021 1:00am July 20, 2023 1 1:41amComment on above:Take 5 mg by mouth once daily.amoxicillin 875 mg / clavulanate 125 mg oral tablet (1 source)Penicillin-class AntibacterialStart: 94-09-4770mwxx 1 tablet by mouth every twelve hoursAmoxicillin-Pot Clavulanate 875-125 MG 1 tablet Orally every 12 hrs for 7 days Nov, Activecarvedilol 12.5 mg oral tablet (20 sources)alpha-Adrenergic Dylan, beta-Adrenergic BlockerStart: 08-15-2025 take 1 tablet by mouth twice dailyCarvedilol 12.5 mg tablet Active 12.5 MG PO Twice daily August 15, 2025 9:46am Complies with drugtherapyStart: 04-01-2025 End: 48-64-5070chor 1 tablet by mouth twice dailyCarvedilol 12.5 mg tablet Discontinued 0 .ROUTE .COMPLEX 180 April 01, 2025 5:07pm August 15, 2025 9:48am TAKE 1 TABLET BY MOUTH TWICE A DAYStart: 09-07-2024 End: 63-30-5967tssl 1 tablet by mouth twice dailyCarvedilol 12.5 mg tablet Discontinued 12.5 MG PO Twice daily September 07, 2024 9:19am April 01, 2025 5:13pmStart: 05-24-2024 End: 37-30-9007etap 1 tablet by mouth twice dailyCarvedilol 12.5 mg tablet Discontinued 0 .ROUTE .COMPLEX 180 May 24, 2024 6:47am September 07, 2024 9:21am TAKE 1 TABLET BY MOUTH TWICE A DAYStart: 07-20-2023 End: 50-24-6798xjzy 1 tablet by mouth twice dailyCarvedilol 12.5 mg tablet Discontinued 12.5 MG PO Twice daily February 08, 2024 12:00am May 24, 2024 6:47amComment on above:Take 12.5 mg by mouth twice daily with meals.dicyclomine hydrochloride 20 mg oral tablet (9 sources)AnticholinergicStart: 18-47-8444qlgp 1 tablet by mouth twice daily as needed for painDicyclomine HCl 20 MG 1 tablet Orally twice daily as needed for ABD pain for 30 days Apr, Active1 ml enoxaparin sodium 100 mg/ml prefilled syringe (20 sources)Low Molecular Weight HeparinStart: 24-08-0859ywehle 100 mg by subcutaneous injection every twelve hoursenoxaparin 100 mg/mL SubQ Gloria 100 mg, SubCutaneous, q12hr, Bridging with Warfarin for surgery, Refills(s) 0, Blood Thinner Start Date: 11/02/24 Status: OrderedStart: 37-79-2335qspwfw 90 mg by subcutaneous injection twice dailyEnoxaparin Sodium 100 MG/ML solution prefilled syringe INJECT 90 MG SUBCUTANEOUSLY TWICE A DAY DIRECTED 10/25/2024 Active Start: 08-03-2023 End: 60-34-9202Vdsncrllou (Lovenox) 100 mg/mL Syringe Discontinued 90 MG SUBCUT Daily August 03, 2023 12:00amJuly 2023 2:29pmergocalciferol 1.25 mg oral capsule (20 sources)Provitamin D2 CompoundStart: 00-17-4191Lmxybqryppmwon (Vitamin D2) 1,250 mcg (50,000 unit) capsule Active 35402 UNIT PO every week 2024 9:47am Complies with drug therapyStart: 04-02-2025 End: 18-04-4396rafu 1 capsule by mouth every weekErgocalciferol (Vitamin D2) 1,250 mcg (50,000 unit) capsule Discontinued 0 .ROUTE .COMPLEX April 02, 2025 9:33am August 15, 2025 9:48am TAKE 1 CAPSULE BY MOUTH ONCE EVERY WEEKStart: 09-07-2024 End: 06-84-4283fohl 1 capsule by mouth every weekErgocalciferol (Vitamin D2) 1,250 mcg (50,000 unit) capsule Discontinued 1250 MCG PO every week September 07, 2024 12:00am April 02, 2025 9:33amferrous sulfate 325 mg oral tablet (20 sources)Start: 02-27-2025 End: 35-08-3492Ntgiula Sulfate 325 mg (65 mg iron) tablet Active 0 .ROUTE .COMPLEX August 09, 2025 10:05amTAKE 1 TABLET BY MOUTH EVERY 48 HOURS Complies with drug therapyStart: 23-24-6397xfgy 1 tablet by mouth every other dayferrous sulfate 325 (65 Fe) MG tablet Take 1 tablet by mouth every other day 09/07/2024 ActiveStart: 09-07-2024 End: 30-43-4362Mgkhmor Sulfate 325 mg (65 mg iron) tablet Discontinued 325 MG PO Every 48 hours September 07, 2024 12:00am February 27, 2025 8:42am levETIRAcetam 750 mg oral tablet (20 sources)Start: 05-96-6099iouo 1 tablet by mouth every twelve hours Levetiracetam 750 mg tablet Active 750 MG PO Every 12 hours February 08, 2024 12:00am Complies with drug therapyStart: 01-06-2021 End: 20-77-0125ctei 1 tablet by mouth twice dailyLevetiracetam 750 mg tablet Discontinued 750 MG PO Twice daily January 06, 2021 1:00am February 08, 2024 11:22amlevETIRAcetam (Keppra) 1000 MG tablet every 12 (twelve) hours Activetake 1 tablet by mouth every twelve hourslevETIRAcetam 750 MG 1 tablet Orally every 12 hrs ActiveComment on above:Take 1 tablet by mouth twice daily.Take 1 tablet by mouth two times a day.take 1 tablet by mouth twice a dayomeprazole 40 mg delayed release oral capsule (20 sources)Proton Pump InhibitorStart: 01-58-1760Ptcttytcna 40 mg capsule,delayed release(DR/EC) Active 0 .ROUTE .COMPLEX 90 August 18, 2025 3:37pm TAKE 1 CAPSULE BY MOUTH 30 MINUTES BEFORE THE MORNING MEAL FOR GERD Complies with drug therapyStart: 70-84-5720zcgx 40 mg by mouth once daily Prilosec 40 mg, Oral, Daily, Refills(s) 0, Control of stomach acid Start Date: 10/25/24 Status: OrderedStart: 01-06-2021 End: 22-80-8964zvmv 1 capsule by mouth twice dailyOmeprazole 40 mg capsule,delayed release(DR/EC) Discontinued 40 MG PO Twice daily 60 December 1:00am July 20, 2023 11:46amStart: 01-27-2011 End: 94-26-5209Gnrvutpwrz 40 mg capsule,delayed release(DR/EC) Discontinued 40 MG PO Every morning August 29, 2024 11:05am August 18, 2025 3:37pm Take 1 capsule orally 30 minutes before morning meal.Comment on above:Take 1 capsule by mouth once daily.ondansetron 4 mg disintegrating oral tablet (20 sources)Serotonin-3 Receptor AntagonistStart: 06-06-2024 End: 26-85-0410owoz 1 tablet by mouth every six hours as needed for nausea Ondansetron 4 mg tablet,disintegrating Active 0 .ROUTE .COMPLEX June 08, 2025 1:13pm DISSOLVE 1 TABLET IN MOUTH EVERY 6 HOURS NEEDED FOR NAUSEA Complies with drug therapyStart: 11-25-2020 End: 47-43-5339nxus 1 tablet by mouth every eight hours as needed for nausea Ondansetron 4 mg tablet,disintegrating Discontinued 4 MG PO Q8H as needed for Nausea December 1:00am June 06, 2024 8:49amStart: 11-25-2020 ondansetron orally disintegrating (ZOFRAN ODT) 4 mg disintegrating tablet 11/25/2020 Activeondansetron (Zofran) 4 MG tablet Take by mouth Active Ondansetron HCl 4 MG 1 tablet on the tongue and allow to dissolve Orally PRN PRN Hexxub94 hr venlafaxine 150 mg extended release oral capsule (20 sources)Serotonin and Norepinephrine Reuptake InhibitorStart: 57-19-7673jisy 1 capsule by mouth once daily in the morningVenlafaxine 150 mg capsule,extended release 24hr Active 150 MG PO Every morning August 15, 2025 9:48am Complies with drug therapyStart: 08-09-2025 End: 22-95-8040mmhj 1 capsule by mouth once dailyVenlafaxine 150 mg capsule,extended release 24hr Discontinued 0 .ROUTE .COMPLEX August 09, 2025 6:54am August 15, 2025 9:48am TAKE 1 CAPSULE BY MOUTH EVERY DAYStart: 02-22-2025 End: 10-56-0469oqvc 1 capsule by mouth once dailyVenlafaxine 150 mg capsule,extended release 24hr Discontinued 150 MG PO Daily February 22, 2025 10:43am August 09, 2025 6:54amStart: 72-57-8069feuh 150 mg by mouth once dailyvenlafaxine 150 mg, Oral, Daily, Refills(s) 0, Depression Start Date: 10/25/24 Status: OrderedStart: 08-20-2024 End: 21-19-1466vmrm 1 capsule by mouth once dailyVenlafaxine 150 mg capsule,extended release 24hr Discontinued 0 .ROUTE .COMPLEX February 13, 2025 7:42am February 22, 2025 10:43am TAKE 1 CAPSULE BY MOUTH EVERY DAYStart: 91-34-4282tfzp 1 capsule by mouth once dailyVenlafaxine Active 0 .ROUTE .COMPLEX August 20, 2024 7:38pm TAKE 1 CAPSULE BY MOUTH EVERY DAYStart: 02-23-2024 venlafaxine XR (Effexor XR) 150 MG 24 hr capsule .COMPLEX 02/23/2024 Active Start: 02-23-2024 End: 40-49-3875miso 1 capsule by mouth once dailyVenlafaxine 150 mg capsule,extended release 24hr Discontinued 0 .ROUTE .COMPLEX February 13, 2025 7:42am February 22, 2025 10:43am TAKE 1 CAPSULE BY MOUTH EVERY DAYStart: 02-08-2024 End: 14-20-7306jwlg 1 tablet by mouth once dailyVenlafaxine 75 mg tablet Discontinued 75 MG PO Daily February 08, 2024 12:00am June 08, 2024 2:30pm Start: 07-20-2023 End: 08-81-4496gcvn 1 capsule by mouth once dailyVenlafaxine 150 mg capsule,extended release 24hr Discontinued 150 MG PO Daily February 08, 2024 12:00am February 23, 2024 1:31pmStart: 01-06-2021 End: 03-29-8886szix 1 capsule by mouth once dailyVenlafaxine 75 mg capsule,extended release 24hr Discontinued 75 MG PO Daily January 06, 2021 1:00am July 20, 2023 11:47amtake 1 tablet by mouth every twenty-four hours Venlafaxine HCl 75 MG 1 tablet with food Orally Once a day Not-Taking/PRNComment on above:Take 1 capsule by mouth once daily.Vitamin D (1 source)Start: 21-17-5061Mdhemys D 50,000 International_Unit, Oral, qWeek, Refills(s) 0, Prophylaxis Start Date: 10/25/24 Status: Orderedwarfarin sodium 4 mg oral tablet (20 sources)Vitamin K AntagonistStart: 19-46-4627dtbm 1 tablet by mouth once dailyWarfarin 4 mg tablet Active 0 .ROUTE .COMPLEX 90 November 17, 2024 2:07pm TAKE 1 TABLET BY MOUTH EVERY DAY DIRECTED BY [facility] 90 Complies with drug therapyStart: 22-32-1657moogdhjj 4 mg Tab 2 mg = 0.5 tab(s), [facility] Start Date: 11/02/24 Status: OrderedStart: 07-20-2023 End: 16-50-0908nyjb 1 tablet by mouth onceWarfarin 2 mg Tablet Discontinued 2 MG PO every Wednesday, Wednesday, Wednesday, and Thursday July 20, 2023 12:00am February 08, 2024 11:26amStart: 10-03-2015 End: 71-69-6880baoc 1 tablet by mouth onceWarfarin 4 mg tablet Discontinued 4 MG PO every Wednesday, and Wednesday January 06, 2021 1:00am November 17, 2024 2:07pmComment on above:Take 1 tablet by mouth once daily.zonisamide 100 mg oral capsule (20 sources)Anti-epileptic AgentStart: 06-22-2025 End: 93-73-0864dlor 3 capsules by mouth once daily at bedtimezonisamide (ZONEGRAN) 100 mg capsule Indications: Localization-related (focal) (partial) symptomatic epilepsy and epileptic syndromes with complex partial seizures, intractable, without status epilepticus (HCC) Take 3 capsules by mouth daily at bedtime. 270 capsule 1 06/22/2025 12/19/2025 ActiveStart: 70-66-4071gjth 300 mg by mouth once daily at bedtimeZonegran 300 mg, Oral, Once a day (at bedtime), Refills(s) 0, Seizure Start Date: 10/25/24 Status: OrderedStart: 80-00-0735odtt 300 mg by mouth once dailyZonisamide Active 300 MG PO Daily February 09, 2024 3:12pmStart: 12-23-2023 End: 86-07-5517xojx 3 capsules by mouth once daily at bedtimezonisamide (ZONEGRAN) 100 mg capsule Indications: Localization-related (focal) (partial) symptomatic epilepsy and epileptic syndromes with complex partial seizures, intractable, without status epilepticus (HCC) Take 3 capsules by mouth daily at bedtime. 270 capsule 1 12/11/2024 06/09/2025 ActiveStart: 09-19-2021 End: 54-48-9478jjqm 2 capsules by mouth once daily at bedtimezonisamide (ZONEGRAN) 100 mg capsule Indications: Partial epilepsy with impairment of consciousness, intractable (HCC) Take 2 capsules by mouth daily at bedtime. 180 capsule 3 09/10/2022 12/23/2023 DiscontinuedStart: 01-06-2021 End: 49-32-0045itbt 1 capsule by mouth once dailyZonisamide 100 mg capsule Active 200 MG PO Daily February 09, 2024 3:12pm Complies with drug therapyStart: 01-06-2021 End: 95-75-4015pcsa 200 mg by mouth once dailyZonisamide Discontinued 200 MG PO Daily January 06, 2021 1:00am February 09, 2024 3:12pmComment on above:Take 2 capsules by mouth daily at bedtime.Take 3 capsules by mouth daily at bedtime. Completed/Discontinued Medications MedicationDrug Class(es)DatesSig (Normalized)Sig (Original)acetaminophen 325 mg / HYDROcodone bitartrate 5 mg oral tablet (20 sources)Opioid AgonistStart: 02-08-2024 End: 73-43-1105fkzp 1 tablet by mouth every eight hours as neededHydrocodone- Acetaminophen 5-325 mg tablet Discontinued 1 TAB PO Every 8 hours as needed January 12:00am March 29, 2024 2:00pmStart: 08-05-2023 End: 36-68-3985vapg 1 tablet by mouth every six hours as needed for pain Hydrocodone-Acetaminophen 5-325 mg Tablet Discontinued 1 TAB PO Q6H as needed for Pain Scale 1 - 5 56 14 August 05, 2023 February 08, 2024 11:22amStart: 75-51-2208czog 1 tablet by mouth every eight hours as needed for painStart: 38-02-4120zpsr 1 tablet by mouth every eight hours as needed for pain HYDROcodone-Acetaminophen 5-325 MG 1 tablet as needed Orally every 8 hours as needed for pain, may cause sedation for 7 days March, Activealendronic acid 70 mg oral tablet (4 sources)BisphosphonateStart: 08-15-2021 End: 45-78-3926ghdi 1 tablet by mouth every weekalendronate (FOSAMAX) 70 mg tablet Take 70 mg by mouth one time a week. 0 08/15/2021 09/10/2022 Discontinued (Discontinued by another Health Care Provider)Comment on above:Take 70 mg by mouth one time a week.amitriptyline hydrochloride 50 mg oral tablet (20 sources)Tricyclic AntidepressantStart: 08-29-2024 End: 71-61-2638uzyo 1 tablet by mouth once daily at bedtimeAmitriptyline 50 mg tablet Discontinued 50 MG PO Daily at bedtime August 29, 2024 12:00am O ct2024 9:46am Take 1 tablet orally at bedtime.Start: 06-08-2024 End: 08-31-7393Iewhuvgalbnst 10 mg tablet Discontinued 25 MG PO Daily at bedtime June 08, 2024 2:28pm September 07, 2024 9:18amStart: 06-08-2024 End: 36-59-4864wzyp 25 mg by mouth once daily at bedtimeAmitriptyline Discontinued 25 MG PO Daily at bedtime June 08, 2024 2:28pm September 07, 2024 9:18amStart: 86-57-9029zysvfxegcceyg (Elavil) 10 MG tablet Daily at bedtime 07/20/2023 ActiveStart: 07-20-2023 End: 24-53-6818Xjiasbuqzkxig 10 mg tablet Discontinued 15 MG PO Daily at bedtime July 20, 2023 12:00am June 08, 2024 2:32pmStart: 07-20-2023 End: 24-78-1439rlnn 15 mg by mouth once daily at bedtimeAmitriptyline Discontinued 15 MG PO Daily at bedtime July 20, 2023 12:00am June 08, 2024 2:32pmStart: 69-87-0928Eduajlfbwceju HCl 10 MG 2 and 1/2 tablets Orally Once a day Dec, ActiveStart: 87-86-4767tvmn 1.5 tablets by mouth every twenty-four hoursAmitriptyline HCl 10 MG 1.5 tablets Orally Once a day Dec, ActiveStart: 41-97-8940ighx 1 tablet by mouth at bedtimeAmitriptyline HCl 25 MG 1 TABLET Orally AT BEDTIME for 30 days Feb, ActiveStart: 71-68-6437pkrj 1 tablet by mouth at bedtimeAmitriptyline HCl 10 MG 1 TABLET Orally AT BEDTIME Feb, ActiveComment on above:Take 25 mg by mouth daily at bedtime.onabotulinumtoxina 100 unt injection (10 sources)Acetylcholine Release InhibitorStart: 07-18-2025 End: 78-30-7225atjwbu 1 dose by intramuscular injection every 30 [id number] Units, INTRAMUSCULAR, ONCE (UP TO 30 DAYS AMB), 1 dose, On Wed07/18/25 at 1300, This record documents the total dose provided to patient. See progress note for specific locations and amounts administered. REFRIGERATE - Pharmaceutical Waste: Lab Pack -Start: 07-18-2025 End: 00-65-7053huptgwlrcpgu toxin type A 200 Units injection (BOTOX)Start: 04-10-2025 End: 99-99-5742schjyu 1 dose by intramuscular injection every 30 vmzc890 Units, INTRAMUSCULAR, ONCE (UP TO 30 DAYS AMB), 1 dose, On Wed04/10/25 at 1230, This record documents the total dose provided to patient. See progress note for specific locations and amounts administered. REFRIGERATE - Pharmaceutical Waste: Lab Pack -Start: 04-10-2025 End: 54-17-3584gpaftwwynpnb toxin type A 200 Units injection (BOTOX)Start: 01-05-2025 End: 54-23-4254xelywqkpkwqo toxin type A 155 Units injection (BOTOX)Start: 01-05-2025 End: 50-02-8650869 Units, OTHER, ONCE (UP TO 30 DAYS AMB), 1 dose, On Wed01/05/25 at 1200, This record documents the total dose provided to patient. See progress note for specific locations and amounts administered. REFRIGERATE - Pharmaceutical Waste: Lab Pack -Start: 09-05-2024 End: 96-70-7438ecehhf 1 dose by intramuscular injection every 30 mpon332 Units, INTRAMUSCULAR, ONCE (UP TO 30 DAYS AMB), 1 dose, On Wed09/05/24 at 1400, This record documents the total dose provided to patient. See progress note for specific locations and amounts administered. REFRIGERATE - Pharmaceutical Waste: Lab Pack -Start: 09-05-2024 End: 48-45-5658eypyghfutcin toxin type A 200 Units injection (BOTOX)Start: 05-23-2024 End: 20-79-4150zexykrfuaevp toxin type A 200 Units injection (BOTOX)Start: 05-23-2024 End: 22-05-5299uuavxbhrnpod toxin type A 200 Units injection (BOTOX)cephalexin 500 mg oral capsule (17 sources)Cephalosporin AntibacterialStart: 11-17-2024 End: 88-10-1328skze 1 capsule by mouth three times dailyCephalexin 500 mg capsule Discontinued 500 MG PO Three times daily 04 06November 17, 2024 1:00am November 24, 2024 2:56pmStart: 59-20-4269pskb 1 capsule by mouth twice daily Keflex 500 MG 1 capsule Orally bid for 7 days Jul, Activecyclobenzaprine hydrochloride 5 mg oral tablet (20 sources)Muscle RelaxantStart: 06-27-2024 End: 40-46-0992ijuh 1 tablet by mouth twice daily as neededCyclobenzaprine 5 mg tablet Discontinued 5 MG PO Twice daily as needed August 29, 2024 10:52am De cember 2023 9:59amdoxycycline monohydrate 100 mg oral capsule (20 sources)Tetracycline-class DrugStart: 02-21-2025 End: 90-79-5812lcnk 1 capsule by mouth twice dailyDoxycycline Monohydrate 100 mg capsule Discontinued 100 MG PO Twice daily 03 09February 21, 2025 12:00am July 02, 2025 2:58pmStart: 11-21-2024 End: 36-84-4816jxfv 1 capsule by mouth twice dailyDoxycycline Hyclate 100 mg capsule Discontinued 100 MG PO Twice daily 03 09November 21, 2024 1:00am February 21, 2025 2:07pmfurosemide 20 mg oral tablet (10 sources)Loop DiureticStart: 08-15-2025 End: 66-98-6651nbpf 1 tablet by mouth once dailyFurosemide 20 mg tablet Discontinued 0 .ROUTE .COMPLEX August 15, 2025 8:59am August 15, 2025 9:48am TAKE 1 TABLET BY MOUTH EVERY DAYStart: 02-22-2025 End: 29-08-4330ovvq 1 tablet by mouth once daily in the morningFurosemide 20 mg tablet Discontinued 20 MG PO Every morning August 15, 2025 9:47am August 28, 2025 9:48amhydrALAZINE hydrochloride 50 mg oral tablet (20 sources)Arteriolar VasodilatorStart: 01-06-2021 End: 66-74-5064Wcoiwvbeljh 50 mg tablet Discontinued 50 MG PO As Directed January 06, 2021 1:00am July 20, 2023 11:41amlinaclotide 0.072 mg oral capsule (20 sources)Guanylate Cyclase-C AgonistStart: 02-08-2024 End: 28-68-7309vimz 1 capsule by mouth once daily as neededLinaclotide 72 mcg capsule Discontinued 72 MCG PO Daily as needed September 07, 2024 9:21am October 27, 2024 10:00amStart: 80-12-1114Xcravob 72 MCG 1 capsule at least 30 minutes before the first meal of the day on an empty stomach Orally Once a day Dec, ActiveStart: 01-33-8414Zgdaiee 72 MCG 1 capsule at least 30 minutes before the first meal of the day on an empty stomach Orally Once a day Dec, Activelosartan potassium 25 mg oral tablet (20 sources)Angiotensin 2 Receptor BlockerStart: 07-20-2023 End: 51-73-0117dgxf 1 tablet by mouth once daily in the morningLosartan 25 mg tablet Discontinued 25 MG PO Every morning November 08, 2024 6:58pm 2023 3:47pmmelatonin 5 mg oral tablet (20 sources)Start: 01-06-2021 End: 59-79-9610lrhd 1 tablet by mouth at bedtime as neededMelatonin 5 mg Tablet Discontinued 5 MG PO Bedtime as needed for Insomnia January 06, 2021 1:00am July 20, 2023 11:48ammupirocin 0.02 mg/mg topical ointment (20 sources)RNA Synthetase Inhibitor AntibacterialStart: 02-08-2024 End: 51-70-6956Jzvkpnvcz 2 % ointment Discontinued 1 APPLIC TOPICAL Twice daily February 08, 2024 12:00am June 08, 2024 2:30pmMupirocin 2 % 1 application Externally Twice a day Not-Taking/PRNnaproxen sodium 220 mg oral tablet (20 sources)Nonsteroidal Anti-inflammatory DrugStart: 01-06-2021 End: 96-08-7987cqtt 1 tablet by mouth twice daily as needed for painNaproxen Sodium (Aleve) 220 mg Tablet Discontinued 220 MG PO Twice daily as needed for Pain January 06, 2021 1:00am July 20, 2023 11:48am End: 31-37-9252yrfkgdji sodium (ALEVE ORAL) Take by mouth as needed. 0 09/10/2022 Discontinued (Discontinued by another Health Care Provider)naproxen sodium (ALEVE ORAL) Take by mouth as needed. 0 ActiveComment on above:Take by mouth as needed.tiZANidine 4 mg oral tablet (20 sources)Central alpha-2 Adrenergic AgonistStart: 08-05-2023 End: 28-70-2392vknn 1 tablet by mouth twice daily as needed for muscle spasms Tizanidine 4 mg Tablet Discontinued 4 MG PO Twice daily as needed for Muscle Spasm August 05, 2023 12:00am February 08, 2024 11:24amtraMADol hydrochloride 50 mg oral tablet (20 sources)Opioid AgonistStart: 03-29-2024 End: 91-19-4662ewzt 1 tablet by mouth twice daily as needed for painTramadol 50 mg tablet Discontinued 50 MG PO Twice daily as needed for pain April 13, 2024 3:16pm October 27, 2024 10:00amStart: 10-14-2020 End: 23-96-9701pcsl 1 tablet by mouth once dailyTramadol 50 mg tablet Discontinued 50 MG PO Daily January 06, 2021 1:00am July 20, 2023 11: 48am Problems Active Problems Problem ClassificationProblemDateDocumented DateEpisodic/ChronicAcute bronchitis (8 sources)Acute bronchitis; Translations: [Acute bronchitis due to other specified organisms]EpisodicAnxiety disorders (20 sources)Anxiety; Translations: [Anxiety disorder, unspecified]Onset: 755053-36-7165XpbgncoRfosdx (20 sources)Asthma without status asthmaticus; Translations: [Asthma, unspecified, unspecified status]Onset: 558493-96-8172GkefvkaLpblszt tract disease (1 source)Disorder of gallbladder; Translations: [Disease of gallbladder, unspecified]35-67-4129XwcgbayoVskstq of other GI organs; peritoneum (20 sources)Carcinoma of ampulla of Vater; 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]Onset: 462571-15-2739AlnachxYdbest of other GI organs; peritoneum (20 sources)History of cancer of ampulla of duodenum; Translations: [Personal history of malignant neoplasm of other digestive organs]Onset: 04-30-2014 31-89-9212IhzkdixfByljpf of pancreas (20 sources)Malignant tumor of pancreas; Translations: [Malignant neoplasm of pancreas, unspecified]Onset: 617804-22-0649FuaxrroDoovlfz on above: surgery, chemo, radiationCardiac dysrhythmias (20 sources)Sinus node dysfunction; Translations: [Sick sinus syndrome]Onset: 203425-57-4335DhtsdpnHlxlgvm kidney disease (20 sources)Chronic kidney disease stage 3B ; Translations: [Stage 3b chronic kidney disease]Onset: 466954-88-7504UgdjhlpTuxsegghadclw of surgical procedures or medical care (16 sources)Postoperative wound infection; Translations: [Infection following a procedure, other surgical site,initial encounter]43-14-9605IgzsiltyNylgptuwtm associated with dizziness or vertigo (20 sources)Benign paroxysmal positional vertigo; Translations: [Benign paroxysmal vertigo, left ear] Resolved: 69-86-5796OtiprcnxQcuxmxrxmd disorders (20 sources)Cardiac pacemaker in situ; Translations: [Presence of cardiac pacemaker]Onset: 556322-90-5062BdvnlqpMumwtszu of white blood cells (20 sources)Leukopenia; Translations: [Decreased white blood cell count, unspecified]33-54-7033AofsdiuJ Codes: Adverse effects of medical drugs (20 sources)Adverse reaction to drug; Translations: [Adverse effect of anticoagulant antagonists, vitamin K andother coagulants, initial encounter] 60-01-5720DxgiivvoUmddqfit; convulsions (20 sources)Partial epilepsy with impairment of consciousness; Translations: [Localization-related (focal) (partial) symptomatic epilepsy and epileptic syndromes with complex partial seizures, intractable, without status epilepticus]Onset: 439221-45-5937LsdqcseAvkvkjsbsn disorders (20 sources)Esophageal reflux finding; Translations: [Esophageal reflux]Onset: 341783-64-1429TjrriqpEsqadmciow disorders (16 sources)Esophageal disorders; Translations: [Gastroesophageal reflux disease with esophagitis without hemorrhage]Essential hypertension (20 sources)Hypertensive disorder; Translations: [Essential (primary) hypertension]Onset: 099087-76-4790InazdrdAeaftzgv; including migraine (20 sources)Migraine; Translations: [Migraine, unspecified, not intractable, without status migrainosus]Onset: 968279-99-0211YcevgyoEvbaknsiymys with complications and secondary hypertension (20 sources)Chronic kidney disease due to hypertension; Translations: [Hypertensive chronic kidney disease withstage 1 through stage 4 chronic kidney disease, or unspecified chronic kidney disease]Onset: 59-00-3519Amewcep Immunizations and screening for infectious disease (9 sources)Encounter for immunization; Translations: [Vaccination given]Onset: 22-78-1843SekrszpgEiufyyl and fatigue (1 source)Fatigue; Translations: [Chronic fatigue, unspecified]ChronicMenopausal disorders (17 sources)Postmenopausal bleeding; Translations: [Postmenopausal bleeding] Onset: 783809-33-8444QgnpftiLzjhionzzftin mental health disorders (8 sources)Non-organic sleep disorder; Translations: [Nonorganic sleep disorder, unspecified]Onset: 41-49-4548BcyyonxLjbh disorders (20 sources)Depressive disorder; Translations: [Depression]Onset: 08-19-2015 76-04-5212MryytxaShmpjr and vomiting (20 sources)Nausea; Translations: [Nausea]Onset: 09-19-2018 Resolved: 85-24-0226XiweatcqRpfbuzbbovd chest pain (20 sources)Tight chest; Translations: [Other chest pain]55-19-6659Gajovkcc Nutritional deficiencies (20 sources)Vitamin D deficiency; Translations: [Vitamin D deficiency, unspecified]87-35-2445HvbudcsEzxiglgjksaddt (20 sources)Arthritis; Translations: [Unspecified osteoarthritis, unspecified site]72-90-9536JjsmjyuSnbwoircuved (20 sources)Osteoporosis; Translations: [Age-related osteoporosis without current pathological fracture]ChronicOther aftercare (16 sources)H/O: high risk medication; Translations: [Other mcc (current) drug therapy]EpisodicOther aftercare (20 sources)Long-term current use of anticoagulant; Translations: [jail (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 of anticoagulants]Onset: 672155-38-3098IvgmemxkGssel aftercare (5 sources)Encounter for therapeutic drug level monitoring; Translations: [ENC THERAPEUTC DRUG LEVL MONITORING]Onset: 30-52-5483ZmhjxleiRynds aftercare (1 source)terminal superintendent (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 of anticoagulants; Translations: [MCC CURRNT USE ANTICOAGULANTS]Onset: 39-66-3772GzjvpipnLgass aftercare (8 sources)Long-term current use of drug therapy; Translations: [Other lobsterman (current) drug therapy]EpisodicOther aftercare (1 source)Drug therapy finding; Translations: [Other lobsterman (current) drug therapy]00-41-2532DagriuekHevbs and ill-defined heart disease (1 source)Heart disease; Translations: [Heart disease, unspecified]02-08-2024 ChronicOther and unspecified benign neoplasm (17 sources)History of polyp of colon; Translations: [Personal history of colonic polyps]EpisodicOther bone disease and musculoskeletal deformities (8 sources)Disorder of bone; Translations: [Disorder of bone, unspecified] EpisodicOther circulatory disease (20 sources)Inferior vena cava filter in situ; Translations: [Presence of other vascular implants and grafts]Onset: 080961-23-1495UpqgfxdQgquo connective tissue disease (16 sources)Unspecified rotator cuff tear or rupture of left shoulder, not specified as traumatic; Translations: [Traumatic rupture of tendon of left supraspinatus muscle (disorder)]EpisodicOther connective tissue disease (20 sources)Adhesive capsulitis of left shoulder; Translations: [Adhesive capsulitis of left shoulder]16-91-7263YdablmduAtgff connective tissue disease (2 sources)Arthrodesis statusEpisodicOther connective tissue disease (8 sources)Nontraumatic rupture of rotator cuff of left shoulder; Translations: [Unspecified rotator cuff tearor rupture of left shoulder, not specified as traumatic]EpisodicOther connective tissue disease (20 sources)Trochanteric bursitis; Translations: [Trochanteric bursitis, right hip]20-10-3586XnjmcyokYqxwg connective tissue disease (4 sources)Trochanteric bursitis, right hip; Translations: [Enthesopathy of hip region]82-02-4710ZydahkejIvqjb connective tissue disease (14 sources)Swelling of right lower limb; Translations: [Other specified soft tissue disorders]13-17-6499WhfqrfcjJlcgt connective tissue disease (5 sources)Other specified soft tissue disorders; Translations: [Swelling of limb]66-94-0748RxaruauaWepru diseases of kidney and ureters (20 sources)Secondary hyperparathyroidism; Translations: [Secondary hyperparathyroidism of renal origin]08-11-4389NadhbxiCfalr diseases of kidney and ureters (12 sources)Secondary hyperparathyroidism of renal origin; Translations: [Secondary hyperparathyroidism (of renal origin)]93-73-4460KqnvgdoLohnk diseases of kidney and ureters (1 source)Kidney disease; Translations: [Disorder of kidney and ureter, unspecified]15-77-5032NnindzhyAywli gastrointestinal disorders (20 sources)Irritable bowel syndrome characterized by constipation; Translations: [Irritable bowel syndrome with constipation]02-62-1722NjvotuvNugyj gastrointestinal disorders (1 source)Irritable bowel syndrome with constipationChronicOther gastrointestinal disorders (20 sources)Constipation; Translations: [Constipation, unspecified]08-29-2024 EpisodicOther gastrointestinal disorders (16 sources)Other specified diseases of intestine; Translations: [Small intestinal bacterial overgrowth (SIBO)]EpisodicOther gastrointestinal disorders (17 sources)Alteration in bowel elimination; Translations: [Change in bowel habit]EpisodicOther gastrointestinal disorders (10 sources)Constipation, unspecified; Translations: [Constipation, unspecified] EpisodicOther gastrointestinal disorders (1 source)Small bowel bacterial overgrowth syndrome; Translations: [Other specified diseases of intestine]EpisodicOther gastrointestinal disorders (1 source)Altered bowel function; Translations: [Change in bowel habit] 93-01-3640SzvfweowSfkaz hereditary and degenerative nervous system conditions (4 sources)Impaired cognition; Translations: [Mild cognitive impairment, so stated]Onset: 608839-56-8230LfohyueWpuqe hereditary and degenerative nervous system conditions (1 source)Mild cognitive impairment, so stated; Translations: [MCI (mild cognitive impairment)]Onset: 26-65-6431VdnpybdCqfla injuries and conditions due to external causes (8 sources)History of fall; Translations: [History of falling]EpisodicOther nervous system disorders (1 source)Chronic pain syndrome; Translations: [Chronic pain syndrome]Onset: 03-93-5872KjxkewsTggdx nervous system disorders (2 sources)Chronic pain syndrome; Translations: [Chronic pain syndrome] 41-90-7190JukiilqWeezw nervous system disorders (9 sources)Impaired cognition; Translations: [Other symptoms and signs involving cognitive functions and awareness] Resolved: 552643-56-3007FbosvvexQnzvp nervous system disorders (20 sources)Postoperative pain ; Translations: [Other acute postprocedural pain] 81-01-5633SfgagzqjCfwxn nutritional; endocrine; and metabolic disorders (20 sources)Obesity; Translations: [Obesity, unspecified]ChronicOther nutritional; endocrine; and metabolic disorders (3 sources)Obese class II; Translations: [Obesity, Class II, BMI 35-39.9]Onset: 906648-17-9983WecymbhCutte screening for suspected conditions (not mental disorders or infectious disease) (15 sources)Encounter for screening mammogram for malignant neoplasm of breast; Translations: [Other screening mammogram]Onset: 24-66-3599ShygatrmCkspg upper respiratory infections (17 sources)Acute maxillary sinusitis; Translations: [Acute maxillary sinusitis, unspecified]EpisodicPhlebitis; thrombophlebitis and thromboembolism (20 sources)Deep venous thrombosis of right lower extremity; Translations: [Acute embolism and thrombosis of unspecified deep veins of right lower extremity]Onset: 302673-35-9251VyzmrohtIshpfopi codes; unclassified (20 sources)Insomnia; Translations: [Other insomnia]Onset: ChronicResidual codes; unclassified (20 sources)Obstructive sleep apnea syndrome; Translations: [Obstructive sleep apnea (adult) (pediatric)]56-10-7263BzljadqXvsmelhi codes; unclassified (6 sources)Obstructive sleep apnea (adult) (pediatric); Translations: [Obstructive sleep apnea (adult)(pediatric)]ChronicResidual codes; unclassified (8 sources)Asymptomatic menopausal state; Translations: [Menopause]Episodic Residual codes; unclassified (16 sources)Edema; Translations: [Localized edema]EpisodicResidual codes; unclassified (8 sources)Menopause present; Translations: [Asymptomatic menopausal state] EpisodicResidual codes; unclassified (8 sources)Postmenopausal state; Translations: [Asymptomatic menopausal state] EpisodicResidual codes; unclassified (9 sources)Localized edema; Translations: [Localized edema]20-63-2817Ttfcphos Residual codes; unclassified (20 sources)History of operative procedure on lumbar spinal structure; Translations: [Other specified postprocedural states]29-34-2177SzkmtiyqUsxpyqch codes; unclassified (4 sources)Other specified postprocedural states; Translations: [Personal history of surgery to other organs]31-55-8999WtdpnihiEhblvyjt codes; unclassified (1 source)Amnesia; Translations: [Other amnesia]39-58-1016AepdniwzOwfeezmj codes; unclassified (8 sources)Bilateral lower limb edema; Translations: [Localized edema]02-21-2025 EpisodicResidual codes; unclassified (3 sources)Localized edema; Translations: [Edema]82-39-0334LtsxuqqpVugvkbh detachments; defects; vascular occlusion; and retinopathy (16 sources)Retinal hemorrhage; 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, bilateral] ChronicSkin and subcutaneous tissue infections (20 sources)Abscess of abdominal wall; Translations: [Cutaneous abscess of abdominal wall]80-55-3419TrhybzfeLkpyzbclhky; intervertebral disc disorders; other back problems (20 sources)Cervical spondylosis; Translations: [Spondylosis without myelopathy or radiculopathy, cervical region]Onset: 72-14-7335OdijuqrQvyvrsgtxnt; intervertebral disc disorders; other back problems (20 sources)Thoracic and lumbosacral neuritis; Translations: [Thoracic or lumbosacral neuritis or radiculitis, unspecified]Onset: 04-30-2014 Resolved: 03-65-0401RvqhyzwaNhxnfxkfpjz injury; contusion (20 sources)Intra-abdominal hematoma; Translations: [Contusion of abdominal wall, initial encounter]Onset: 508222-78-3222NpwzncopOwwnjwj disorders (20 sources)Thyroid nodule; Translations: [Nontoxic single thyroid nodule] ChronicUnclassified (3 sources)LOW BACK PAIN, UNSPECIFIED; Translations: [LOW BACK PAIN, UNSPECIFIED]Onset: 19-49-0233Lexnxyofvqgk (8 sources)Exposure to acute respiratory syndrome coronavirus 2; Translations: [Contact with and (suspected) exposure to COVID-19]Unclassified (1 source)Obesity, Class II, BMI 35-39.9; Translations: [Obesity, Class II, BMI 35-39.9]Onset: 10-64-1460Yfhrzvugbalo (1 source)M96.1 - Postlaminectomy syndrome, not elsewhere classifiedViral infection (4 sources)COVID-19; Translations: [COVID-19]Onset: 06-08-2022 Past or Other Problems Problem ClassificationProblemDateDocumented DateEpisodic/ChronicAbdominal pain (20 sources)Abdominal pain; Translations: [Unspecified abdominal pain]Onset: 125565-32-4300CljbmozjRmludpkgx and vision defects (20 sources)Homonymous hemianopia; Translations: [Homonymous bilateral field defects, unspecified side]Onset: 163438-45-7679YhtdmohlVpgsnwt dysrhythmias (20 sources)Bradycardia; Translations: [Bradycardia, unspecified]Onset: 174732-10-3710FzkfwufdOzabepe kidney disease (4 sources)Chronic kidney disease; Translations: [CHRONIC KIDNEY DISEASE STAGE 3A]Onset: 68-60-1060Lkidmbyrmnus of device; implant or graft (20 sources)Complication of intravascular line; Translations: [Unspecified complication of cardiac and vascularprosthetic device, implant and graft, initial encounter]Onset: 485020-45-3349EwtfgogrIsdvvcrjmj and other anemia (9 sources)Anemia; Translations: [Anemia, unspecified]Onset: 04-13-2019 71-29-6316BfwbciltMgsdtivn; convulsions (20 sources)Seizure; Translations: [Other convulsions]Onset: 01-24-2015 Resolved: 578589-90-6517EgfcagwkXzllvto and fatigue (20 sources)Fatigue; Translations: [Other fatigue]Onset: EpisodicNeoplasms of unspecified nature or uncertain behavior (8 sources)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; Translations: [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] Resolved: 47-41-5179QiklvofrDljzi aftercare (20 sources)Anticoagulant effect; Translations: [terminal superintendent (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 of anticoagulants]Onset: 450952-62-3408HmmniyvnJduoz aftercare (1 source)Other lobsterman (current) drug therapy; Translations: [OTH MUSIC THERAPIST CURRENT DRUG THERAPY]Onset: 42-03-8591MihetxveJxhgp aftercare (8 sources)Encounter for other orthopedic aftercare; Translations: [Encounter for other orthopedic aftercare] Resolved: 56-12-2515QlxacetdXssua aftercare (8 sources)Therapeutic drug level - finding; Translations: [Encounter for therapeutic drug level monitoring] Resolved: 41-63-1927MqgyovezRnytz bone disease and musculoskeletal deformities (8 sources)Tietze's disease; 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 junction syndrome [Tietze]] Resolved: 07-30-0862BoyndeuvDrjij circulatory disease (8 sources)Cardiovascular symptoms; Translations: [Other specified symptoms and signs involving the circulatory and respiratory systems] Resolved: 48-65-1517CdkfjeqqSgziv connective tissue disease (20 sources)Pain in limb; Translations: [Pain in unspecified limb]Onset: 510913-68-9763VgwqdjosWbcoc connective tissue disease (20 sources)Pain in left arm; Translations: [Pain in left arm]Onset: 10-24-2019 53-56-3372AqmauttoGyqhr connective tissue disease (8 sources)Spasm; Translations: [Spasm of muscle]Onset: 09-76-5406WmqdxktpYripk connective tissue disease (8 sources)Unspecified rotator cuff tear or rupture of unspecified shoulder, not specified as traumatic; Translations: [Unsp rotatr-cuff tear/ruptr of unsp shoulder, not trauma] Resolved: 72-46-8311MhydcrlsQtqab connective tissue disease (8 sources)Full thickness rotator cuff tear; Translations: [Complete rotator cuff tear or rupture of left shoulder, not specified as traumatic] Resolved: 73-20-9101QlmuafdhLazgw connective tissue disease (8 sources)Neuralgia; Translations: [Neuralgia and neuritis, unspecified] Resolved: 35-12-7882PlzmavvoMmcfp eye disorders (20 sources)Hypertropia of right eye; 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, right eye]Onset: 754587-54-4712NczvfapjErmpf liver diseases (20 sources)Alkaline phosphatase raised; Translations: [Abnormal levels of other serum enzymes]Onset: 248416-52-2126ZuzcnlagMpuuj nervous system disorders (20 sources)Paresthesia; Translations: [Paresthesia of skin]Onset: 01-05-2019 11-52-8228RtgfwduqVcizk non-traumatic joint disorders (8 sources)Shoulder joint pain; Translations: [Pain in left shoulder] Resolved: 68-24-2618HlwqsuypIaxei nutritional; endocrine; and metabolic disorders (20 sources)Abnormal weight loss; Translations: [Abnormal weight loss]Onset: 103421-96-2544NqyhlmexSytdv upper respiratory disease (8 sources)Bleeding from nose; Translations: [Epistaxis] Resolved: 17-76-8484PswmwglxRieppryi codes; unclassified (20 sources)Family history of malignant neoplasm of pancreas; Translations: [Family history of malignant neoplasm of digestive organs]Onset: 09-19-2018 50-67-8370QdbaffzeLodgxgin codes; unclassified (1 source)Family history of malignant neoplasm of breast; Translations: [FAMILY HX MALIG NEOPLASM OF BREAST]Onset: 47-04-8989QgbwbekhFjavorqh codes; unclassified (1 source)Family history of malignant neoplasm of other organs or systems; Translations: [FAM HX MALIG NEOPLASM OTH ORGN/SYS]Onset: 82-66-8981Syvkyilm Residual codes; unclassified (1 source)Other amnesia; Translations: [Memory loss]Onset: 36-83-2243Gdrcwwsq Sprains and strains (8 sources)Neck sprain; Translations: [Strain of muscle, fascia and tendon at neck level, initial encounter] Resolved: 49-16-3204KobgdvnfAdylhpqcryby (1 source)LOW BACK PAIN, UNSPECIFIED; Translations: [LOW BACK PAIN, UNSPECIFIED] Onset: 35-43-3498Vdvoecsevxru (8 sources)Gynecological examination normal; Translations: [Routine gynecological examination]Onset: 02-22-2008 Results Test NameValueInterpretationReference RangeFacilityErythrocyte distribution width Auto (RBC) [Ratio]Ordered By: Katina Ordoñez on 68-84-1972Baayuhakckp distribution width (RBC) [Ratio]12.5 %11.0-15.0[facility] Glomerular filtration rate (GFR) estimation in non- AmericanOrdered By: Katina Ordoñez on 98-48-2356AIH/1.73 sq M.predicted among non-blacks MDRD (S/P/Bld) [Vol rate/Area]28 mL/min/{1.73_m2}Low>=60 mL/min/1.73m [address] [place], [place] [address]Hematocrit Auto (Bld) [Volume fraction]Ordered By: Katina Ordoñez on 22-81-3458Rfganobwij (Bld) [Volume fraction]40.5 %36.0-48.0[facility] HospitalHemoglobin [Mass/volume] in BloodOrdered By: Katina Ordoñez on 30-21-7011Yssjckadfw (Bld) [Mass/Vol]12.9 g/dL12.0-16.0[facility] HospitalIron binding capacity [Mass/volume] in Serum or PlasmaOrdered By: Katina Ordoñez on 85-36-7002Njxm binding capacity [Mass/Vol]278.0 ug/dL250.0-450.0 [facility] HospitalIron saturation [Mass Fraction] in Serum or PlasmaOrdered By: Katina Ordoñez on 67-36-3780Mpse saturation [Mass fraction]30.2 % [facility] HospitalLaboratory - Chemistry and Chemistry - challengeOrdered By: Katina Ordoñez on 93-23-8443Krihswg [Mass/Vol]3.9 g/dL3.4-5.0 [facility] HospitalCalcium [Mass/Vol]8.5 mg/dL8.5-10.1FRegional Medical CenterChloride [Moles/Vol]105 mmol/C15-287DpezxvsopPromedica Toledo HospitalCO2 [Moles/Vol]23.9 mmol/L21.0-32.0[facility] HospitalCreatinine [Mass/Vol]1.78 mg/dLHigh0.55-1.02[facility] HospitalFerritin [Mass/Vol]74.0 ng/mL8.0-252.0[facility] GFR/1.73 sq M.predicted MDRD (S/P/Bld) [Vol rate/Area]34 mL/min/{1.73_m2}Low>=60 mL/min/1.73m 2FRegional Medical CenterGlucose [Mass/Vol]104 mg/oF50-491 [facility] HospitalIron [Mass/Vol]84.0 ug/dL50.0-170.0[facility] HospitalMagnesium [Mass/Vol]2.1 mg/dL1.8-2.4FRegional Medical CenterPotassium [Moles/Vol]4.1 mmol/L3.5-5.1FOhioHealth Doctors Hospitalodium [Moles/Vol]141 mmol/B649-913FkrvbqmehPromedica Toledo HospitalUrate [Mass/Vol]5.1 mg/dL2.6-6.0[facility] HospitalUrea nitrogen [Mass/Vol]25.0 mg/dLHigh7.0-18.0[facility] HospitalUrea nitrogen/Creatinine [Mass ratio]14.0 mg/mgPromedica Toledo Hospital Bilirubin Ql (U)NegativeNEGATIVEPromedica Toledo HospitalGlucose (U) [Mass/Vol]NegativeNEGATIVEPromedica Toledo HospitalKetones Ql (U) NegativeNEGATIVEPromedica Toledo HospitalpH (U)6.0 [pH]5.0-9.0[facility] Hospitalpecific gravity (U) [Rel density]1.0251.005-1.025 [facility] HospitalUrobilinogen Qn (U)1.0 {Lin'U}/dL0.2-1.0 [facility] HospitalLaboratory - Specimen informationOrdered By: Katina Ordoñez on 72-04-0152Hsnhecavoz (U)CLEARCLEARFRegional Medical CenterColor (U)YELLOWYELLOWPromedica Toledo HospitalLaboratory - UrinalysisOrdered By: Katina Ordoñez on 55-19-9609Ikluccpfj esterase Test strip Ql (U)NegativeNEGOhioHealth O'Bleness HospitalMucus Ql (Urine sed)NONE SEENNONE SEENPromedica Toledo HospitalNitrite Ql (U)NegativeNEGATIVE [facility] HospitalProtein (U) [Mass/Vol]22.3 mg/dLHigh<=11.9 [facility] HospitalProtein Ql (U)NegativeNEG/TRACEPromedica Toledo HospitalLeukocytes [#/volume] corrected for nucleated erythrocytes in Blood by Automated counOrdered By: Katina Ordoñez on 34-08-9016LRA corrected for nucl RBC Auto (Bld) [#/Vol]4.7 10 3/uL4.0-11.0[facility] HospitalH Auto (RBC) [Entitic mass]Ordered By: Katina Ordoñez on 08-06-2025 MCH (RBC) [Entitic mass]32.3 pg26.7-34.0Promedica Toledo HospitalMCHC Auto (RBC) [Mass/Vol]Ordered By: Katina Ordoñez on 89-49-9396FFCP (RBC) [Mass/Vol] 31.9 g/dL29.9-35.2FRegional Medical CenterMCV Auto (RBC) [Entitic vol] Ordered By: Katina Ordoñez on 89-39-2526CXE (RBC) [Entitic vol]101.5 fLHigh 81.0-99.0Promedica Toledo HospitalNo Panel InformationOrdered By: Katina Ordoñez on 988084-Heqflbf Vitamin D Total51.2 ng/mLPromedica Toledo HospitalComment on above:<20 ng/mL Vit D vxwplnulk60-<30 ng/mL Vit D heabuihhvgpm99-108 ng/mL Vit D sufficient>100 ng/mL Potential Toxicity Parathyroid Hormone (Intact)222 pg/tCXujvsdpz96-81MtnxzbqusPromedica Toledo HospitalComment on above:Performed at: - [facility] [id number] Director: Junaid Sawyer PhD, Phone: [phone] Phosphorus Level3.6 mg/dL2.6-4.7FRegional Medical CenterUrine Bacteria TRACE #/HPFAbnormalNONE SEENPromedica Toledo HospitalUrine Occult Blood NegativeNEGATIVEPromedica Toledo HospitalUrine Other CastsNONE SEEN #/LPFNONE SEENPromedica Toledo HospitalUrine Other CrystalsNone Seen #/HPFNone [facility] HospitalUrine Random Wxlijfiqgd645.50 mg/dL20.00-300.00Promedica Toledo HospitalUrine RBC0-2 #/HPF0-2FRegional Medical CenterUrine Squamous Epithelial CellsRARE #/LPFNONE/RARE [facility] HospitalUrine WBC0-2 #/HPFAbnormalNONE [facility] Health CenterPlatelet mean volume Auto (Bld) [Entitic vol]Ordered By: Katina Ordoñez on 28-58-8725Dskbekje mean volume (Bld) [Entitic vol]9.6 fL9.5-13.5 [facility]edo HospitalPlatelets Auto (Bld) [#/Vol]Ordered By: Katina Ordoñez on 84-83-0570Yaqfnpwyf (Bld) [#/Vol]204 10 3/tN338-188JmxlactddPromedica Toledo HospitalRBC Auto (Bld) [#/Vol]Ordered By: Katina Ordoñez on 10-36-0111PAT (Bld) [#/Vol]3.99 10 6/uLLow4.20-5.40Bucyrus Community Hospitalerum or plasma anion gap determinationOrdered By: Katina Ordoñez on 98-02-6196Xlhov gap [Moles/Vol]16.2 mmol/LFRegional Medical CenterUrine protein/creatinine ratioOrdered By: Katina Aguileradir on 61-24-8221Zoobsfs/Creatinine (U) [Ratio]0.17 [facility] HospitalCreatinineon 91-82-6195Qebkvvqjiz Clr Calc Mkpzitgn86.93NoYadkin Valley Community Hospital Physician GroupComment on above:Order Comment: STAT FOR MRIResult Comment: PERFORMED BY: [facility] [address] [place] [address] PATHOLOGIST PAPER GOODS MACHINE OPERATOR LISA LOMBARDO M.D.Performed By: #### CREAT ####[place] [id number] USAGFR/1.73 sq M.predicted MDRD (S/P/Bld) [Vol rate/Area]27.025 mL/min/{1.73_m2}NormalThe Firsthealth Physician Group Comment on above:Order Comment: STAT FOR MRIPerformed By: #### CREAT ####[address] [address] [facility] Creatinine [Mass/volume] in Serum or PlasmaOrdered By: Tiana Brush on 08-01-2025 Creatinine [Mass/Vol]1.91 mg/dLHigh0.60-1.20[facility] Comment on above:Order Comment: STAT FOR MRIPerformed By: #### CREAT ####[address] [address] [place] Glomerular filtration rate [Volume Rate/Area] in Serum, Plasma or Blood by CreatinineOrdered By: Tiana Brush on 40-13-4626Boodtmtrwm filtration rate [Volume Rate/Area] in Serum, Plasma or Blood by Znyubwzzih17.025 mL/MinPromedica Toledo HospitalISTAT XRay CREon 27-62-1490YUYFV GFR27.197NoYadkin Valley Community Hospital Physician GroupComment on above:Result Comment: PERFORMED BY: [facility] [address] [place] [id number] PATHOLOGIST PAPER GOODS MACHINE OPERATOR LISA LOMBARDO M.D.Performed By: #### ISCRE ####[facility] [address] [place] [address] [facility] lumbar spine wo conon 67-39-2102RH lumbar spine wo [facility] [address] [place] [address] MRI Report Signed Patient: Cassi Rodrigez MR#: [id number] 8 : 1950 Acct:[id number] Age/Sex: 75 / F ADM Date: 08/01/25 Loc: MR Room: Type: [facility] Attending Dr: Tiana CHAMBERS Copies to: [...] Simon M.D. 08/01/2025 3:20 PM Dictation Location: [place] [address] Transcribed By: [facility] 08/01/25 1520 Dictated By: Arnel Simon II, MD 08/01/25 1508 Signed By: 08/01/25 1520[facility] Physician GroupMagnetic resonance imaging reportOrdered By: Arnel Simon on 57-01-1789Ithsh reportUN[facility] [address] [place] [address] [place] [address] MRI Report Signed Patient: Cassi Rodrigez MR#: [id number] : 1950 Acct:[id number] Age/Sex: 75 / F ADM Date: 5 Loc: MR Room: Type: [facility] Attending Dr: Tiana CHAMBERS Copies to: [...] loss at L3-L4 and L4-L5. There is Modictype I endplate edema at T12-L1 and L4-5. There is Modic type II fatty endplate degenerative changewith Modic type I endplate edema at L1-L2. [...] disc bulge with facet hypertrophy and posterior decompression.There is moderate spinal canal stenosis with moderate to severe left and severe right neural foraminal narrowing. There is mass effect on the exiting right L4 nerve roots. This is slightly worse whencompared to the prior study. At L5-S1: There is a broad-based disc bulge with facet hypertrophy. No significant spinal canal narrowing. There is mild right neural foraminal narrowing. MR/MR lumbar spine wo con IMPRESSION: At L4-L5: There is a circumferential disc bulge with facet hypertrophy and posterior decompression.There is moderate spinal canal stenosis with moderate to severe left and severe right neural foraminal narrowing. There is mass effect on the exiting right L4 nerve roots. This is slightly worse whencompared to the prior study. Intervertebral fusion is noted at L5-S1. Lesser degrees of degenerative changes are redemonstrated throughout the lumbar spine without significant interval progression. Impression dictated by: Arnel Simon M.D. 08/01/2025 3:20 PM Dictation Location: [facility]--17 Transcribed By: [facility] 08/01/25 152 Dictated By: Arnel Simon II, MD 08/01/25 1508 Signed By: 08/01/25 1520 [facility] Work Phone: no Panel InformationOrdered By: Tiana Brush on 32-02-1141Asvlosl Estimated GFR (eGFR)27.197[facility] Creatinine Clearance (Chem25.93[facility] HospitalWhole blood creatinine measurementOrdered By: Tiana Brush on 10-53-0662Wmtgxwrlqf [Mass/Vol]1.9 mg/dLHigh0.6-1.3FRegional Medical CenterComment on above: ER/ESD physician is notified/shown all ISTAT results.Critical values may be confirmed by laboratorytesting ifdeemed necessary by ER attending doctor.Result Comment: ER/ESD physician is notified/shown all ISTAT results. Critical values may be confirmed by laboratory testing if deemed necessary by ER attending doctor.Performed By: #### ISCRE ####[facility] [address] [place] [address] [facility] MEXICOCNOVon 57-54-4451VVOE Office Visit (NEADFV) CASSI RODRIGEZ ([id number]) 1950 F Date Time Provider Department 07/18/25 [...] Blanc RN Botox, 2 vials: Lot # [id number] Exp 09/2027 Lot # [id number] Exp 09/[address] Reilly [...] Injection Sites Muscle Fixed Site/Fixed Dose Bilat Reinstatement Clerk 20 U divided in 2 sites Procerus [...] Units wasted: 0 Randa Reilly MD [facility] Randa Reilly MD 07/18/2025 12:52 PM Signed PROGRESS NOTE- HEADACHE MEDICINE SERVICE DATE: July 18, 2025 Location: [facility] Participants: patient, and provider [...] with me or WENDY Randa Reilly MD [facility] Referring Provider: RANDA REILLY [[id number]] Allergies As of Date: 07/18/2025 Noted Allergy Reaction LYRICA (PREGABALIN) 08/24/2013 2 - Rash DEXAMETHASONE 10/03/2015 2 - Rash Date Reviewed: 07/18/2025 Reviewed by: Nola Naranjo MA - Fully Assessed Reason for (more content not included)...[facility] 89-13-1183AHLJFgqzky Visit (DENILSON) CASSI RODRIGEZ ([id number]) 1950 F Date Time Provider Department 05/21/25 8:00 AM ELIAN JONES During your visit today, we recorded the following information about you: Blood pressure Weight 123/60 87.3 kg Elian Jones DO 05/23/2025 2:36 PM Signed [facility] Brain [facility] New Patient Evaluation Cassi Rodrigez : 1950 05/21/2025 8:00 AM Chief Complaint: memory concern I had the pleasure of seeing this 75 year old year old female at the [facility]. The patient is referred [...] She was advised to follow up at [facility] for further evaluation of her memory concerns. [...] No Falls, Injuries, Ac (more content not included)...NormalFirelands Regional [facility] 00-71-6761TPTIMbbdwv Visit (NEADFV) CASSI RODRIGEZ ([id number]) 1950 F Date Time Provider Department 04/10/25 11:30 AM RANDA REILLYFV During your visit today, we recorded the following information about you: Pulse Blood pressure Weight Height 86/minute 109/72 85.6 kg 1.575 m Randa Reilly MD 04/10/2025 12:19 PM Signed PROGRESS NOTE- HEADACHE MEDICINE SERVICE DATE: April 10, 2025 Location: [facility] Participants: patient, and provider HPI: [...] with me or WENDY Randa Reilly MD [facility] Lon Alexander RN 04/10/2025 12:19 PM Signed [...] Farfan RN Botox, 2 vials: Lot # [id number] Exp 08/2027 Lot # [id number] Exp 08/[address] Reilly [...] Injection Sites Muscle Fixed Site/Fixed Dose Bilat Reinstatement Clerk 20 U divided in 2 sites Procerus [...] wasted: 0 Randa Reilly MD [facility] Referring Provider: RANDA REILLY [[id number]] Allergies As of Date: 04/10/2025 Noted Allergy [...] daily at bedtime. - (more content not included)...NormalChelsea Marine HospitalErythrocyte distribution width Auto (RBC) [Ratio]on 11-59-6129Kovqeggwokm distribution width (RBC) [Ratio]Erythrocyte distribution width [Ratio] by Automated count11.0-15.0 [facility] HospitalEstimated glomerular filtration rate (GFR) non- Americanon 17-93-4451KAE/1.73 sq M.predicted among non-blacks MDRD (S/P/Bld) [Vol rate/Area]Estimated glomerular filtration rate (GFR) non- AmericanLow>=60 mL/min/1.73m 2FRegional Medical CenterHematocrit Auto (Bld) [Volume fraction]on 81-07-9364Bbrahsmqpt (Bld) [Volume fraction]Hematocrit [Volume Fraction] of Blood by Automated count36.0-48.0[facility] HospitalHemoglobin [Mass/volume] in Bloodon 70-49-0983Wyghkcymtz (Bld) [Mass/Vol] Hemoglobin [Mass/volume] in Blood12.0-16.0[facility] HospitalIron binding capacity [Mass/volume] in Serum or Plasmaon 23-86-9599Ppnb binding capacity [Mass/Vol]Iron binding capacity [Mass/volume] in Serum or Plasma 250.0-450.0[facility] HospitalIron saturation [Mass Fraction] in Serum or Plasmaon 89-81-3518Ldcd saturation [Mass fraction]Iron saturation [Mass Fraction] in Serum or PlasmaPromedica Toledo HospitalLaboratory - Chemistry and Chemistry - challengeon 43-02-3203Tvoojjx [Mass/Vol]3.3 g/dLLow 3.4-5.0[facility] HospitalCalcium [Mass/Vol]8.6 mg/dL8.5-10.1 [facility] HospitalChloride [Moles/Vol]107 mmol/G05-871EcawgqkxpPromedica Toledo HospitalCO2 [Moles/Vol]21.1 mmol/L21.0-32.0[facility] HospitalCreatinine [Mass/Vol]1.94 mg/dLHigh0.55-1.02Prom[facility]ica Toledo HospitalFerritin [Mass/Vol]62.0 ng/mL8.0-252.0[facility] HospitalGFR/1.73 sq M.predicted MDRD (S/P/Bld) [Vol rate/Area]31 mL/min/{1.73_m2} Low>=60 mL/min/1.73m 2FRegional Medical CenterGlucose [Mass/Vol]117 mg/jRRyxx30-268YvwkydmgvPromedica Toledo HospitalIron [Mass/Vol]75.0 ug/dL 50.0-170.0[facility] HospitalMagnesium [Mass/Vol]2.0 mg/dL1.8-2.4 [facility] HospitalPotassium [Moles/Vol]4.6 mmol/L3.5-5.1FOhioHealth Doctors Hospitalodium [Moles/Vol]141 mmol/E946-214ZyuxvkuuiPromedica Toledo HospitalUrate [Mass/Vol]5.0 mg/dL2.6-6.0[facility] Urea nitrogen [Mass/Vol]27.0 mg/dLHigh7.0-18.0[facility] Urea nitrogen/Creatinine [Mass ratio]13.9 mg/mgPromedica Toledo Hospital Laboratory - Urinalysison 54-30-8552Zvwlvjq (U) [Mass/Vol]24.6 mg/dLHigh<=11.9 [facility] HospitalLeukocytes [#/volume] corrected for nucleated erythrocytes in Blood by Automated counon 61-31-2414UBY corrected for nucl RBC Auto (Bld) [#/Vol]Leukocytes [#/volume] corrected for nucleated erythrocytes in Blood by Automated coun4.0-11.0[facility] HospitalH Auto (RBC) [Entitic mass]on 26-39-6635ZTE (RBC) [Entitic mass]MCH [Entitic mass] by Automated count26.7-34.0[facility] HospitalHC Auto (RBC) [Mass/Vol]on 37-06-2166HKDU (RBC) [Mass/Vol]MCHC [Mass/volume] by Automated count29.9-35.2FMercy Health Springfield Regional Medical CenterV Auto (RBC) [Entitic vol]on 27-78-8083SGE (RBC) [Entitic vol]MCV [Entitic volume] by Automated count 81.0-99.0[facility] HospitalNo Panel Informationon 96-75-031392- Hydroxy Vitamin D Total36.0 ng/mLPromedica Toledo HospitalComment on above:<20 ng/mL Vit D eitxzradg92-<30 ng/mL Vit D vhobssyiyhjk94-719 ng/mL Vit D sufficient>100 ng/mL Potential ToxicityParathyroid Hormone (Intact)141 pg/mL Xfvpceut52-49HguivgkmwPromedica Toledo HospitalComment on above:Performed at: [employer] - [facility] [id number] Director: Junaid Sawyer PhD, Phone: [phone] Level3.5 mg/dL2.6-4.7FRegional Medical CenterUrine Random Lkbpiqveog617.82 mg/dL20.00-300.00Prom[facility]edo HospitalPlatelet mean volume Auto (Bld) [Entitic vol]on 81-11-6237Kpsclnbn mean volume (Bld) [Entitic vol]Platelet mean volume [Entitic volume] in Blood by Automated count9.5-13.5FRegional Medical Center Platelets Auto (Bld) [#/Vol]on 11-29-5739Ixhvaiotn (Bld) [#/Vol]Platelets [#/volume] in Blood by Automated gtupx276-955QgrzilmxhPromedica Toledo Hospital RBC Auto (Bld) [#/Vol]on 89-42-9084WHM (Bld) [#/Vol]Erythrocytes [#/volume] in Blood by Automated countLow4.20-5.40[facility]rus Community Hospitalerum or plasma anion gap determinationon 58-79-1665Gotcf gap [Moles/Vol]Serum or plasma anion gap determinationPromedica Toledo HospitalUrine protein/creatinine ratioon 06-45-6097Vrdsgul/Creatinine (U) [Ratio]Urine protein/creatinine ratio [facility] HospitalCNOVon 35-42-0232TPRNVlagar Visit (NEADFV) JACECASSI Nery ([id number]) 1950 F Date Time Provider Department 01/05/25 12:00 PM SVITLANA MAYFIELD During your visit today, we recorded the following information about you: Pulse Blood pressure Weight Height 86/minute 127/61 86.7 kg 1.575 m Svitlana Mayfield APRN.[employer] TRAFFIC CONTROLLER 01/05/2025 12:15 PM Signed Follow-Up Onabotulinum Toxin [...] for migraine Informed Consent Consent Obtained: Written [place] Protocol A moment to CARE was completed [...] applicable Written Consent Obtained: Written LOT #: [id number] Expiration Date: Month: Year: 2026 Second vial: LOT #: [id number] Expiration Date: Month: Year: 2026 Injection Sites Left (Units) Left (Sites) Right (Units) Right (Sites) TOTAL (Units) Reinstatement Clerk 5 1 5 1 10 Procerus Units: [...] with chronic migraine pr (more content not included)...Normal [facility] HospitalCNOVon 66-48-7159MEILUlbisj Visit (NEEPFV) CASSI RODRIGEZ ([id number]) 1950 F Date Time Provider Department 01/04/25 2:00 PM ALEJANDRO VILLAR [facility] During your visit today, we recorded the following information about you: Pulse Blood pressure Weight Height 86/minute 127/61 87 kg 1.575 m Alejandro Villar MD, PhD 01/04/2025 2:17 PM Signed [facility] Patient Name: Cassi Rodrigez Date of : 1950 ESTABLISHED EPILEPSY CLINIC NOTE 01/04/2025 2:00 PM Reason for Visit: Follow Up Clinical Summary: Ms. Rodrigez is a 74 year old right-handed female seen in [facility]. There is no one accompanying [...] - Seizure risk factors: Brain Tumor No ENGINEER TECHNICAL STAFF Infections No Developmental Delay No Family history [...] abnormal data ALL BASIC (more content not included)...NormalChelsea Marine HospitalAlanine aminotransferase [Enzymatic activity/volume] in Serum or Plasma Ordered By: Kristel Low on 29-40-7794RCS [Catalytic activity/Vol]Alanine aminotransferase [Enzymatic activity/volume] in Serum or Plasma7-52Prom[facility] HospitalAlbumin [Mass/volume] in Serum or Plasma by Bromocresol green (BCG) dye binding methoOrdered By: Kristel Low on 31-29-1070Ugybukh BCG dye [Mass/Vol]Albumin [Mass/volume] in Serum or Plasma by Bromocresol green (BCG) dye binding metho3.5-5.7FRegional Medical CenterAlkaline phosphatase [Enzymatic activity/volume] in Serum or PlasmaOrdered By: Kristel Low on 85-89-5287UCX [Catalytic activity/Vol]Alkaline phosphatase [Enzymatic activity/volume] in Serum or NytmgkCcjd12-105CjlsbxftaPromedica Toledo Hospital Appearance of UrineOrdered By: Kristel Low on 00-81-6178Fpkylkpgwc (U)Urine appearanceCleBarnesville HospitalAspartate aminotransferase [Enzymatic activity/volume] in Serum or PlasmaOrdered By: Kristel Low on 04-45-2910JGS [Catalytic activity/Vol]Aspartate aminotransferase [Enzymatic activity/volume] in Serum or BascokMwz20-31PgazsjasyPromedica Toledo Hospital Bacteria [Presence] in Urine by AutomatedOrdered By: Kristel Low on 47-46-5441Pkkjelut Auto Ql (U)Bacteria [Presence] in Urine by AutomatedNone Seen [facility] HospitalBasophils Auto (Bld) [#/Vol]Ordered By: Kristel Low on 60-08-4019Wurblvssu (Bld) [#/Vol]Automated basophil count 0.0-0.2FRegional Medical CenterBasophils/100 WBC Auto (Bld)Ordered By: Kristel Low on 29-35-1035Cxlqqchct/100 WBC (Bld)Automated basophil %. [facility] HospitalBilirubin Test strip Ql (U)Ordered By: Kristel Low on 83-87-4706Xahoiacvg Ql (U)Bilirubin.total [Presence] in Urine by Test stripNegativePromedica Toledo HospitalBilirubin.total [Mass/volume] in Serum or PlasmaOrdered By: Kirstel Low on 18-45-8416Xuhgdotcl [Mass/Vol] Bilirubin.total [Mass/volume] in Serum or Plasma0.3-1.0[facility] HospitalBlood Cultureon 05-20-5184Hwsqoxhr identified Cx Nom (Bld)NO GROWTH 5 DAYS PERFORMED BY: [facility] [address] [facility] [place] [address] PATHOLOGIST PAPER GOODS MACHINE OPERATOR LEON MA M.D.NormalThe Firsthealth Physician GroupComment on above: Performed By: #### CMP, PT, PTT, CUBLD, LACTIC, LIPASE, CBC ####[facility] [address] [place] [address] USABacteria identified Cx Nom (Bld)NO GROWTH 5 DAYS PERFORMED BY: [facility] [address] [facility] [place] [id number] PATHOLOGIST PAPER GOODS MACHINE OPERATOR LEON MA M.D.NormalSt. Joseph'S Children'S Hospital Physician GroupComment on above: Performed By: #### CMP, PT, PTT, CUBLD, LACTIC, LIPASE, CBC #### [facility] [address] [place] [address] USACT abdomen pelvis wo conon 26-90-7902PD abdomen pelvis wo [facility] [place] [address] [place] [address] CT Scan Report Signed Patient: Cassi Rodrigez MR#: [id number] 8 : 1950 Acct:[id number] Age/Sex: 74 / F ADM Date: 11/24/24 Loc: ER Room: Type: [facility] ER Attending Dr: Copies to: Kristel [...] Arnel Simon M.D.11/24/2024 3:48 PM Dictation Location: [place] [address] Transcribed By: [facility] 11/24/24 1548 Dictated By: Arnel Simon II, MD 11/24/24 1538 Signed By: 11/24/24 1548[facility] Physician GroupCalcium [Mass/volume] in Serum or PlasmaOrdered By: Kristel Low on 52-73-1272Refthoj [Mass/Vol]Calcium [Mass/volume] in Serum or PlasmaLow8.6-10.3FRegional Medical Center Carbon dioxide, total [Moles/volume] in Serum or PlasmaOrdered By: Kristel Low on 82-31-7017WK2 [Moles/Vol]Carbon dioxide, total [Moles/volume] in Serum or Zgpsnq85.0-31.0[facility] HospitalChloride [Moles/volume] in Serum or PlasmaOrdered By: Kristel Low on 50-79-7233Ogzuxfhl [Moles/Vol] Chloride [Moles/volume] in Serum or LxzfpvThic19-699TnsqzlitsPromedica Toledo HospitalColor Auto (U)Ordered By: Kristel Low on 13-90-3635Hnizg (U)Color of Urine by AutoYellowPromedica Toledo HospitalComplete Blood Count Auto Diffon 21-12-8157Kneozcvdo (Bld) [#/Vol]0.0 10*3/uLNormal0.0-0.2The Firsthealth Physician GroupComment on above:Result Comment: PERFORMED BY: [place] [address] PATHOLOGIST PAPER GOODS MACHINE OPERATOR LEON MA M.D.Performed By: #### CMP, PT, PTT, CUBLD, LACTIC, LIPASE, CBC #### [place] [address] USABasophils/100 WBC (Bld)0.5 %Normal.The Firsthealth Physician GroupComment on above:Performed By: #### CMP, PT, PTT, CUBLD, LACTIC, LIPASE, CBC #### [place] [address] USAEosinophils (Bld) [#/Vol]0.3 10*3/uLNormal0.0-0.45The Firsthealth Physician GroupComment on above:Performed By: #### CMP, PT, PTT, CUBLD, LACTIC, LIPASE, CBC #### [place] [address] USAEosinophils/100 WBC (Bld)5.9 %Normal.The Firsthealth Physician GroupComment on above:Performed By: #### CMP, PT, PTT, CUBLD, LACTIC, LIPASE, CBC #### [place] [address] USAErythrocyte distribution width (RBC) [Ratio]14.2 %Normal 11.9-15.3The Firsthealth Physician GroupComment on above:Performed By: #### CMP, PT, PTT, CUBLD, LACTIC, LIPASE, CBC #### [place] [address] USAHematocrit (Bld) [Volume fraction]28.7 %Low34.0-46.4The Firsthealth Physician GroupComment on above:Performed By: #### CMP, PT, PTT, CUBLD, LACTIC, LIPASE, CBC #### [place] [address] USAHemoglobin (Bld) [Mass/Vol]9.7 g/dLLow11.8-15.4The Firsthealth Physician GroupComment on above:Performed By: #### CMP, PT, PTT, CUBLD, LACTIC, LIPASE, CBC #### [place] [address] USALymphocytes (Bld) [#/Vol]0.7 10*3/uLLow1.00-4.8The Firsthealth Physician GroupComment on above:Performed By: #### CMP, PT, PTT, CUBLD, LACTIC, LIPASE, CBC #### [place] [address] USALymphocytes/100 WBC (Bld)13.8 %Normal.The Firsthealth Physician GroupComment on above:Performed By: #### CMP, PT, PTT, CUBLD, LACTIC, LIPASE, CBC #### [place] [address] USAMCH (RBC) [Entitic mass]32.2 tgFtrase02.7-34.3The Firsthealth Physician GroupComment on above:Performed By: #### CMP, PT, PTT, CUBLD, LACTIC, LIPASE, CBC #### [place] [address] USAMCV (RBC) [Entitic vol]95.4 xYJhekxy55-434Pyx Firsthealth Physician GroupComment on above:Performed By: #### CMP, PT, PTT, CUBLD, LACTIC, LIPASE, CBC #### [place] [address] USAMean Corpuscular HGB Conc33.8 g/eTFkwjfr27.0-35.0The Firsthealth Physician GroupComment on above:Performed By: #### CMP, PT, PTT, CUBLD, LACTIC, LIPASE, CBC #### [place] [address] USAMonocytes (Bld) [#/Vol]0.4 10*3/uLNormal0.0-0.8The Firsthealth Physician GroupComment on above:Performed By: #### CMP, PT, PTT, CUBLD, LACTIC, LIPASE, CBC #### [place] [address] USAMonocytes/100 WBC (Bld)19.31 %Normal0.00-20.00The Firsthealth Physician GroupComment on above:Performed By: #### CMP, PT, PTT, CUBLD, LACTIC, LIPASE, CBC #### [facility] [address] [place] [address] USAMonocytes/100 WBC (Bld)7.8 %Normal.The Firsthealth Physician GroupComment on above:Performed By: #### CMP, PT, PTT, CUBLD, LACTIC, LIPASE, CBC #### [place] [address] USANeutrophils (Bld) [#/Vol]3.7 10*3/uLNormal1.8-7.7The Firsthealth Physician GroupComment on above:Performed By: #### CMP, PT, PTT, CUBLD, LACTIC, LIPASE, CBC #### [place] [address] USANeutrophils/100 WBC (Bld)72.0 %Normal.The Firsthealth Physician GroupComment on above:Performed By: #### CMP, PT, PTT, CUBLD, LACTIC, LIPASE, CBC #### [place] [address] USANRBC%0.1 /100{WBC}Normal0-0.5The [facility] Comment on above:Performed By: #### CMP, PT, PTT, CUBLD, LACTIC, LIPASE, CBC #### [place] [address] USAPlatelet mean volume (Bld) [Entitic vol]7.2 fLNormal 6.3-10.7The Firsthealth Physician GroupComment on above:Performed By: #### CMP, PT, PTT, CUBLD, LACTIC, LIPASE, CBC #### [place] [address] USAPlatelets (Bld) [#/Vol]286 10*3/zLVbflho530-940Tmw Firsthealth Physician GroupComment on above:Performed By: #### CMP, PT, PTT, CUBLD, LACTIC, LIPASE, CBC #### [facility] [address] [place] [address] USARBC (Bld) [#/Vol]3.01 10*6/uLLow3.60-5.00The Firsthealth Physician GroupComment on above:Performed By: #### CMP, PT, PTT, CUBLD, LACTIC, LIPASE, CBC #### [facility] [address] [place] [address] USAWBC (Bld) [#/Vol]5.1 10*3/uLNormal3.8-11.6The Firsthealth Physician GroupComment on above:Performed By: #### CMP, PT, PTT, CUBLD, LACTIC, LIPASE, CBC #### [place] [address] USAComprehensive Metabolic Panelon 19-53-3310Nzwcjws [Mass/Vol]3.6 g/dLNormal3.5-5.7The Firsthealth Physician GroupComment on above: Performed By: #### CMP, PT, PTT, CUBLD, LACTIC, LIPASE, CBC #### [place] [address] USAAlbumin/Globulin [Mass ratio]1.4 {ratio}NormalThe Firsthealth Physician GroupComment on above:Performed By: #### CMP, PT, PTT, CUBLD, LACTIC, LIPASE, CBC #### [facility] [address] [place] [address] USAALP [Catalytic activity/Vol]174 U/ZCcer49-884Gkn Firsthealth Physician GroupComment on above:Performed By: #### CMP, PT, PTT, CUBLD, LACTIC, LIPASE, CBC #### [facility] [address] [place] [address] USAALT [Catalytic activity/Vol]8 U/LNormal7-52The Firsthealth Physician GroupComment on above:Performed By: #### CMP, PT, PTT, CUBLD, LACTIC, LIPASE, CBC #### [facility] [address] [place] [address] USAAnion gap [Moles/Vol]9.7 mmol/LNormal6.0-15.0The Firsthealth Physician GroupComment on above:Performed By: #### CMP, PT, PTT, CUBLD, LACTIC, LIPASE, CBC #### [place] [address] USAAST [Catalytic activity/Vol]12 U/ISzb97-71Sht Firsthealth Physician GroupComment on above:Performed By: #### CMP, PT, PTT, CUBLD, LACTIC, LIPASE, CBC #### [place] [address] USABilirubin [Mass/Vol]0.7 mg/dLNormal0.3-1.0The Firsthealth Physician GroupComment on above:Performed By: #### CMP, PT, PTT, CUBLD, LACTIC, LIPASE, CBC #### [place] [address] USACalcium [Mass/Vol]8.5 mg/dLLow8.6-10.3The Firsthealth Physician GroupComment on above:Performed By: #### CMP, PT, PTT, CUBLD, LACTIC, LIPASE, CBC #### [place] [address] USAChloride [Moles/Vol]111 mmol/OJwju89-005Ops Firsthealth Physician GroupComment on above:Performed By: #### CMP, PT, PTT, CUBLD, LACTIC, LIPASE, CBC #### [place] [address] USACO2 [Moles/Vol]23.6 mmol/HLtpzar84.0-31.0The Firsthealth Physician GroupComment on above:Performed By: #### CMP, PT, PTT, CUBLD, LACTIC, LIPASE, CBC #### [place] [address] USACreatinine [Mass/Vol]1.66 mg/dLHigh0.60-1.20The Firsthealth Physician GroupComment on above:Performed By: #### CMP, PT, PTT, CUBLD, LACTIC, LIPASE, CBC #### [facility] [address] [place] [address] USACreatinine Clr Calc Sbvddaau61.82NoYadkin Valley Community Hospital Physician GroupComment on above:Performed By: #### CMP, PT, PTT, CUBLD, LACTIC, LIPASE, CBC #### [facility] [address] [place] [address] USAEstimated GFR32.179 mL/MinNoYadkin Valley Community Hospital Physician GroupComment on above:Performed By: #### CMP, PT, PTT, CUBLD, LACTIC, LIPASE, CBC #### [facility] [address] [place] [address] USAGlobulin (S) [Mass/Vol]2.6 g/dLHCA Florida Brandon Hospital Physician Mississippi State HospitalComment on above:Performed By: #### CMP, PT, PTT, CUBLD, LACTIC, LIPASE, CBC #### [facility] [address] [place] [address] USAGlucose [Mass/Vol]99 mg/bKTnqdco81-778Blz Firsthealth Physician GroupComment on above:Result Comment: Random Glucose Reference Range is dependent on time and content of last meal. Glucose of more than 200 mg/dL in a nonstressed, ambulatory subject supports the diagnosis of Diabetes Mellitus. ADA recommended reference rangePerformed By: #### CMP, PT, PTT, CUBLD, LACTIC, LIPASE, CBC #### [facility] [address] [place] [address] USAPotassium [Moles/Vol]4.3 mmol/LNormal3.5-5.1The Firsthealth Physician GroupComment on above:Performed By: #### CMP, PT, PTT, CUBLD, LACTIC, LIPASE, CBC #### [facility] [address] [place] [address] USAProtein [Mass/Vol]6.2 g/dLLow6.4-8.9The Firsthealth Physician GroupComment on above:Performed By: #### CMP, PT, PTT, CUBLD, LACTIC, LIPASE, CBC #### [facility] [address] [place] [address] USASodium [Moles/Vol]140 mmol/UTkjbpe135-587Oqf Firsthealth Physician GroupComment on above:Performed By: #### CMP, PT, PTT, CUBLD, LACTIC, LIPASE, CBC #### [facility] [address] [place] [address] USAUrea nitrogen [Mass/Vol]24 mg/dLNormal7-25The Firsthealth Physician GroupComment on above:Performed By: #### CMP, PT, PTT, CUBLD, LACTIC, LIPASE, CBC #### [facility] [address] [place] [address] USACreatinine [Mass/volume] in Serum or PlasmaOrdered By: Kristel Low on 17-06-9938Sgcpbfyjid [Mass/Vol]Creatinine [Mass/volume] in Serum or PlasmaHigh0.60-1.20[facility]edo HospitalDipstick and Microscopicon 13-69-8704Uzsbnfrogn (U)ClearNormalClearSt. Joseph'S Children'S Hospital Physician GroupComment on above:Order Comment: Name Collection Type:: Clean-Voided MidstreamPerformed By: #### ADDONUAPLUS #### [facility] [address] [place] [address] USABacteria,UrineNone SeenNormalNone SeenThe Firsthealth Physician GroupComment on above:Order Comment: Name Collection Type:: Clean- Voided MidstreamPerformed By: #### ADDONUAPLUS #### [facility] [address] [place] [id number] USABilirubin,UrineNegativeNormalNegativeThe Firsthealth Physician GroupComment on above:Order Comment: Name Collection Type:: Clean- Voided MidstreamPerformed By: #### ADDONUAPLUS #### [facility] [address] [place] [id number] USAColor (U)Light-YellowNormalYellowThe Firsthealth Physician GroupComment on above:Order Comment: Name Collection Type:: Clean-Voided MidstreamPerformed By: #### ADDONUAPLUS #### [facility] [address] [place] [id number] USAGlucose Ql (U)NormalNormalNormalThe Firsthealth Physician GroupComment on above:Order Comment: Name Collection Type:: Clean-Voided MidstreamPerformed By: #### ADDONUAPLUS #### [facility] [address] [place] [address] USAHyaline Casts,Urine0 [LPF]Normal0-8The Firsthealth Physician GroupComment on above:Order Comment: Name Collection Type:: Clean-Voided MidstreamPerformed By: #### ADDONUAPLUS #### [address] [address] USAKetones Ql (U)NegativeNormalNegativeThe Firsthealth Physician GroupComment on above:Order Comment: Name Collection Type:: Clean- Voided MidstreamPerformed By: #### ADDONUAPLUS #### [place] [id number] USALeukocyte esterase Test strip Ql (U)1+HighNegativeThe Firsthealth Physician GroupComment on above:Order Comment: Name Collection Type:: Clean-Voided MidstreamPerformed By: #### ADDONUAPLUS #### [place] [id number] USAMucus,UrineRareNormalThe Firsthealth Physician GroupComment on above:Order Comment: Name Collection Type:: Clean-Voided MidstreamResult Comment: PERFORMED BY: [place] [address] PATHOLOGIST PAPER GOODS MACHINE OPERATOR LEON MA M.D.Performed By: #### ADDONUAPLUS #### [place] [id number] USANitrite,UrineNegativeNormalNegativeThe Firsthealth Physician GroupComment on above:Order Comment: Name Collection Type:: Clean-Voided MidstreamPerformed By: #### ADDONUAPLUS #### [address] [address] USAOccult Blood,UrineNegativeNormalNegativeThe Firsthealth Physician GroupComment on above:Order Comment: Name Collection Type:: Clean- Voided MidstreamResult Comment: PERFORMED BY: [place] [address] PATHOLOGIST P[employer] GOODS MACHINE OPERATOR LEON MA M.D.Performed By: #### ADDONUAPLUS #### [place] [address] USApH (U)5.5 [pH]Normal5.0-9.0The [facility] Comment on above:Order Comment: Name Collection Type:: Clean-Voided Midstream Performed By: #### ADDONUAPLUS #### [place] [address] USAProtein,UrineNegativeNormalNegativeThe Firsthealth Physician GroupComment on above:Order Comment: Name Collection Type:: Clean-Voided MidstreamPerformed By: #### ADDONUAPLUS #### [place] [address] USARBC,Urine1 [HPF]Normal0-4The [facility] Comment on above:Order Comment: Name Collection Type:: Clean-Voided Midstream Performed By: #### ADDONUAPLUS #### [place] [address] USASpecificy [place],Urine1.205Eewfzd1.001-1.030The Firsthealth Physician GroupComment on above:Order Comment: Name Collection Type:: Clean- Voided MidstreamPerformed By: #### ADDONUAPLUS #### [place] [address] USASquamous Epithelial Cell,Urine3 [HPF]High0-2The Firsthealth Physician GroupComment on above:Order Comment: Name Collection Type:: Clean- Voided MidstreamPerformed By: #### ADDONUAPLUS #### [place] [address] USAUrobilinogen,UrineNormalNormalNormalThe Firsthealth Physician GroupComment on above:Order Comment: Name Collection Type:: Clean- Voided MidstreamPerformed By: #### ADDONUAPLUS #### [place] [address] USAWBC,Urine1 [HPF]Normal0-4The [facility] Comment on above:Order Comment: Name Collection Type:: Clean-Voided Midstream Performed By: #### ADDONUAPLUS #### [facility] [address] [place] [address] USAEosinophils Auto (Bld) [#/Vol]Ordered By: Kristel Low on 35-87-0580Eolflgqiqrb (Bld) [#/Vol]Automated eosinophil count0.0-0.45 [facility] HospitalEosinophils/100 WBC Auto (Bld)Ordered By: Kristel Low on 59-17-6600Ifsvvsjhanl/100 WBC (Bld)Automated eosinophil %. [facility] HospitalEpithelial cells.squamous [#/area] in Urine sediment by Automated countOrdered By: Kristel Low on 52-70-2147Kujtxvdpbj cells.squamous Auto (Urine sed) [#/Area]Epithelial cells.squamous [#/area] in Urine sediment by Automated countHigh0-2FRegional Medical Center Erythrocyte distribution width Auto (RBC) [Ratio]Ordered By: Kristel Low on 96-47-0835Cijdplzqbqp distribution width (RBC) [Ratio]Erythrocyte distribution width [Ratio] by Automated count11.9-15.3FRegional Medical Center Erythrocytes [#/area] in Urine sediment by Automated countOrdered By: Kristel Low on 21-03-2423DKF Auto (Urine sed) [#/Area]Erythrocytes [#/area] in Urine sediment by Automated count04FRegional Medical CenterGlobulin Calc (S) [Mass/Vol]Ordered By: Kristel Low on 04-04-1186Bfbglflg (S) [Mass/Vol]Serum globulin measurement by calculation (mass/volume)[facility] HospitalGlucose [Mass/volume] in Serum or PlasmaOrdered By: Kristel Low on 03-66-9582Ndclcls [Mass/Vol]Glucose [Mass/volume] in Serum or Qoxhuo26-606 [facility]edo HospitalComment on above:ADA recommended reference rangeRandom Glucose Reference Range is dependent on time and content of last meal. Glucose of more than 200 mg/dL in a nonstressed, ambulatory subject supports the diagnosisof Diabetes Mellitus.Glucose [Mass/volume] in Urine by Test stripOrdered By: Kristel Low on 02-54-3854Xoygqkv Test strip (U) [Mass/Vol]Glucose [Mass/volume] in Urine by Test stripNormalPromedica Toledo HospitalHematocrit Auto (Bld) [Volume fraction]Ordered By: Kristel Low on 62-49-7575Nkiohthzqk (Bld) [Volume fraction]Hematocrit [Volume Fraction] of Blood by Automated qqwihEqp82.0-46.4FRegional Medical CenterHemoglobin Test strip Ql (U)Ordered By: Kristel Low on 43-99-4964Pkuhekvcug Ql (U) Hemoglobin [Presence] in Urine by Test stripNegativePromedica Toledo HospitalHemoglobin [Mass/volume] in BloodOrdered By: Kristel Low on 11-24-2024 Hemoglobin (Bld) [Mass/Vol]Hemoglobin [Mass/volume] in MnkszLaz84.8-15.4 [facility] HospitalHyaline casts [#/area] in Urine sediment by Automated countOrdered By: Kristel Low on 77-04-2958Ckfvdek casts Auto (Urine sed) [#/Area]Hyaline casts [#/area] in Urine sediment by Automated count 0-8Prom[facility] HospitalINR in Platelet poor plasma by Coagulation assayOrdered By: Kristel Low on 52-98-9593NBI Coag (PPP) [Relative time]INR in Platelet poor plasma by Coagulation assayPromedica Toledo Hospital Comment on above:INR Therapeutic Range A) Pre- and Peroperative OAT started two weeks before surgery. NOT HIP SURGERY: 1.5 - 2.5 HIP SURGERY: 2 - 3B) Primary and secondary prevention of venous THROMBOSIS: 2 - 3C) Active venous thrombosis, pulmonary embolismand prevention of recurrent venous thrombosis: 2 - 3D) Preve ntion of arterial thromboembolismincluding patients with mechanical heart valves: 3 - 4.5Ketones Test strip Ql (U)Ordered By: Kristel Low on 84-63-5887Wlyvady Ql (U)Ketones [Presence] in Urine by Test stripNegative [facility] HospitalLaboratory - Microbiology and Antimicrobial susceptibilityOrdered By: Kristel Low on 45-96-1082Efqzffak identified Cx Nom (Bld)NO GROWTH 5 DAYSFirelands Regional Medical CenterBacteria identified Cx Nom (Bld)NO GROWTH 5 DAYSPromedica Toledo HospitalBacteria identified Cx Nom (Bld)NO GROWTH 5 DAYSPromedica Toledo HospitalBacteria identified Cx Nom (Bld)NO GROWTH 5 DAYSPromedica Toledo HospitalLactate [Moles/volume] in Serum or PlasmaOrdered By: Kristel Low on 11-24-2024 Lactate [Moles/Vol]Lactate [Moles/volume] in Serum or Plasma0.5-2.2FRegional Medical CenterLactic Acidon 89-42-8781Gpbjsnm [Moles/Vol]0.8 mmol/L Normal0.5-2.2The Firsthealth Physician GroupComment on above:Result Comment: PERFORMED BY: [place] [address] PATHOLOGIST P[employer] MACHINE OPERATOR LEON MA M.D.Performed By: #### CMP, PT, PTT, CUBLD, LACTIC, LIPASE, CBC #### [place] [address] USALeukocyte esterase [Presence] in Urine by Test strip Ordered By: Kristel Low on 51-30-1113Yunprrhbx esterase Test strip Ql (U) Leukocyte esterase [Presence] in Urine by Test stripHighNegativePromedica Toledo HospitalLeukocytes [#/area] in Urine sediment by Automated count Ordered By: Kristel Low on 69-63-2066WED Auto (Urine sed) [#/Area]Leukocytes [#/area] in Urine sediment by Automated count0-4FRegional Medical CenterLeukocytes [#/volume] corrected for nucleated erythrocytes in Blood by Automated counOrdered By: Kristel Low on 29-98-6398VEA corrected for nucl RBC Auto (Bld) [#/Vol]Leukocytes [#/volume] corrected for nucleated erythrocytes in Blood by Automated coun3.8-11.6FRegional Medical CenterLipaseon 97-75-7013Jntkgm [Catalytic activity/Vol]10.0 U/LLow11.0-82.0The Firsthealth Physician GroupComment on above:Result Comment: PERFORMED BY: [facility] [address] [place] [address] PATHOLOGIST P[employer] MACHINE OPERATOR LEON MA M.D.Performed By: #### CMP, PT, PTT, CUBLD, LACTIC, LIPASE, CBC #### [facility] [address] [place] [address] USALipase [Enzymatic activity/volume] in Serum or Plasma Ordered By: Kristel Low on 60-55-4694Wuydtf [Catalytic activity/Vol]Lipase [Enzymatic activity/volume] in Serum or EwcranGmd02.0-82.0[facility] HospitalLymphocytes Auto (Bld) [#/Vol]Ordered By: Kristel Low on 02-88-4908Bjmuaeomlly (Bld) [#/Vol]Lymphocytes [#/volume] in Blood by Automated countLow1.00-4.8Prom[facility] HospitalLymphocytes/100 WBC Auto (Bld) Ordered By: Kristel Low on 86-24-7534Jbarwoowguh/100 WBC (Bld) Lymphocytes/100 leukocytes in Blood by Automated count.[facility] HospitalH Auto (RBC) [Entitic mass]Ordered By: Kristel Low on 79-09-7746DYF (RBC) [Entitic mass]MCH [Entitic mass] by Automated count24.7-34.3 [facility] HospitalHC Auto (RBC) [Mass/Vol]Ordered By: Kristel Low on 95-88-6215PBZE (RBC) [Mass/Vol]MCHC [Mass/volume] by Automated count 32.0-35.0[facility] HospitalMCV Auto (RBC) [Entitic vol]Ordered By: Kristel Low on 77-64-1470TEO (RBC) [Entitic vol]MCV [Entitic volume] by Automated dpfco29-392MnvyitqexPromedica Toledo HospitalMonocyte distribution width [Entitic volume] in Blood by AutomatedOrdered By: Kristel Low on 84-91-5666Bdnuccqe distribution width Auto (Bld) [Entitic vol]Monocyte distribution width [Entitic volume] in Blood by Automated0.00-20.00[facility] HospitalMonocytes Auto (Bld) [#/Vol]Ordered By: Kristel Low on 15-55-6329Tgaqkdked (Bld) [#/Vol]Automated blood monocyte count0.0-0.8 [facility] HospitalMonocytes/100 WBC Auto (Bld)Ordered By: Kristel Low on 56-72-7192Ndxfjssvl/100 WBC (Bld)Automated monocyte %. [facility] HospitalMucus [Presence] in Urine by AutomatedOrdered By: Kristel Low on 68-30-1203Uxzug Auto Ql (U)Mucus [Presence] in Urine by AutomatedPromedica Toledo HospitalNeutrophils Auto (Bld) [#/Vol]Ordered By: Kristel Low on 77-86-8112Xhygaqkzzaj (Bld) [#/Vol]Neutrophils [#/volume] in Blood by Automated count1.8-7.7FRegional Medical Center Neutrophils/100 WBC Auto (Bld)Ordered By: Kristel Low on 11-24-2024 Neutrophils/100 WBC (Bld)Automated neutrophil %.Prom[facility] HospitalNitrite Test strip Ql (U)Ordered By: Kristel Low on 42-98-9296Vxqlkbi Ql (U)Nitrite [Presence] in Urine by Test stripNegativePromedica Toledo HospitalNo Panel InformationOrdered By: Kristel Low on 11-24-2024 Estimated GFR (CKD-EPI)32.179 mL/MinPromedica Toledo HospitalPharmacy Creatinine Clearance (Chem30.82Prom[facility] HospitalNucleated erythrocytes [Presence] in Blood by Automated countOrdered By: Kristel Low on 65-18-9345Kpmxqstie RBC Auto Ql (Bld)Nucleated erythrocytes [Presence] in Blood by Automated count0-0.5FRegional Medical CenterPartial Thromboplastin Timeon 53-80-2011vPGB Coag (Bld) [Time]33.5 xSlrzik14.1-36.5The Firsthealth Physician GroupComment on above:Result Comment: A hematocrit value greater than 55% may lead to inaccurate results in coagulation testing. Patients having hematocrit values >55% require a special collection tube for coagulation studies. Please contact the laboratory at [phone] for redraw instructions. PERFORMED BY: [facility] [address] [place] [address] PATHOLOGIST P[employer] MACHINE OPERATOR LEON MA M.D.Performed By: #### CMP, PT, PTT, CUBLD, LACTIC, LIPASE, CBC #### [facility] [address] [place] [id number] USAPlatelet mean volume Auto (Bld) [Entitic vol]Ordered By: Kristel Low on 32-44-8515Qjfxuriq mean volume (Bld) [Entitic vol]Platelet mean volume [Entitic volume] in Blood by Automated count6.3-10.7FRegional Medical CenterPlatelets Auto (Bld) [#/Vol]Ordered By: Kristel Low on 99-33-9415Zynutaldp (Bld) [#/Vol]Platelets [#/volume] in Blood by Automated vniyy940-672AlwgusfzkPromedica Toledo HospitalPotassium [Moles/volume] in Serum or PlasmaOrdered By: Kristel Low on 63-33-1903Qlzjjonai [Moles/Vol]Potassium [Moles/volume] in Serum or Plasma3.5-5.1FRegional Medical Center Protein Test strip (U) [Mass/Vol]Ordered By: Kristel Low on 11-24-2024 Protein (U) [Mass/Vol]Protein [Mass/volume] in Urine by Test stripNegative [facility] HospitalProtein [Mass/volume] in Serum or PlasmaOrdered By: Kristel Low on 69-01-6779Jbavqct [Mass/Vol]Protein [Mass/volume] in Serum or PlasmaLow6.4-8.9[facility] HospitalProthrombin Time INRon 04-71-1499XFS Coag (PPP) [Relative time]2.0 {INR}NormalThe Firsthealth Physician GroupComment on above:Result Comment: INR Therapeutic Range A) Pre- and [...] patients with mechanical heart valves: 3 - 4.5Performed By: #### CMP, PT, PTT, CUBLD, LACTIC, LIPASE, CBC #### [facility] [address] [place] [address] USAPT Coag (PPP) [Time]22.8 sHigh9.0-12.9The Firsthealth Physician GroupComment on above:Result Comment: A hematocrit value greater than 55% may lead to inaccurate results in coagulation testing. Patients having hematocrit values >55% require a special collection tube for coagulation studies. Please contact the laboratory at [phone] for redraw instructions.Performed By: #### CMP, PT, PTT, CUBLD, LACTIC, LIPASE, CBC #### [facility] [address] [place] [address] USAProthrombin time (PT)Ordered By: Kristel Low on 78-45-3873LF Coag (PPP) [Time]Prothrombin time (PT)High9.0-12.9[facility] HospitalComment on above:A hematocrit value greater than 55% may lead to inaccurate results in coagulation testing. Patientshaving hematocrit values >55% require a special collection tube for coagulation studies. Please c ontact the laboratory at [phone] for redraw instructions.RBC Auto (Bld) [#/Vol]Ordered By: Kristel Low on 63-83-6033PLG (Bld) [#/Vol]Erythrocytes [#/volume] in Blood by Automated countLow3.60-5.00Bucyrus Community Hospitalerum or plasma albumin/globulin mass ratioOrdered By: Kristel Low on 49-09-8664Yxkmtrj/Globulin [Mass ratio]Serum or plasma albumin/globulin mass ratioBucyrus Community Hospitalerum or plasma anion gap determination Ordered By: Kristel Low on 25-95-2730Atzqd gap [Moles/Vol]Serum or plasma anion gap determination6.0-15.0[facility] Community Hospitalodium [Moles/volume] in Serum or PlasmaOrdered By: Kristel Low on 05-67-1451Gwappe [Moles/Vol]Sodium [Moles/volume] in Serum or Xxmzqf966-289EzneyvkwyBucyrus Community Hospitalpecific gravity Test strip (U) [Rel density]Ordered By: Kristel Low on 68-23-3650Ylnhhwud gravity (U) [Rel density]Specific gravity of Urine by Test strip1.001-1.030[facility] HospitalUrea nitrogen [Mass/volume] in Serum or PlasmaOrdered By: Kristel Low on 78-31-5515Xplc nitrogen [Mass/Vol]Urea nitrogen [Mass/volume] in Serum or Plasma7-25Prom[facility]edo HospitalUrobilinogen Test strip (U) [Mass/Vol]Ordered By: Kristel Low on 02-27-7935Umhasbqzjmkx (U) [Mass/Vol]Urobilinogen [Mass/volume] in Urine by Test stripNormalPromedica Toledo HospitalWBC Auto (Bld) [#/Vol]Ordered By: Kristel Low on 73-48-1617UCT (Bld) [#/Vol] Leukocytes [#/volume] in Blood by Automated count3.8-11.6FRegional Medical CenteraPTT in Platelet poor plasma by Coagulation assayOrdered By: Kristel Low on 56-72-0081aMMX Coag (PPP) [Time]Activated partial thromboplastin time (aPTT) in platelet poor plasma by coagulation a25.1-36.5 [facility]edo HospitalComment on above:A hematocrit value greater than 55% may lead to inaccurate results in coagulation testing. Patientshaving hematocrit values >55% require a special collection tube for coagulation studies. Please contact the laboratory at [phone] for redraw instructions. pH Test strip (U)Ordered By: Kristel Low on 42-64-2214bX (U)pH of Urine by Test strip5.0-9.0[facility]edo HospitalIonized Calciumon 11-06-2024 Calcium.ionized ISE [Mass/Vol]4.5 mg/dLInvalid Interpretation Code4.5-5.6[facility] [address] Psychiatric CenterComment on above:Result Comment: Performed at: [facility] [id number] PhD Digna QuirogaPerformed By: #### [id number] #### [facility] [address] [place] [address]Sgfo OR Intraoperative Recordon 05-72-7323Exiu OR Intraoperative RecordMain OR Intraoperative Record IntraOp Document Type FT Summary Primary Physician: Shashi De Souza MD Finalized Date/Time: 11/06/24 08:14:44 Pt. Name: CASSI RODRIGEZ /Sex: 1950 Female Med Rec #: [id number] Physician: Shasih De Souza MD Financial #: [id number] Pt. Type: O Room/Bed: [place] [address] Admit/Disch: 11/02/24 10:13:03 - 11/03/24 15:25:00 Institution: [...] Role Performed CARLOS ALBERTO Surgeon - Primary Bank Vault Attendant - Primary Time In 11/02/24 14:07:00 11/02/24 [...] Katy Eastman Role Performed Scrub - Primary INFUSION RN Water Plant Pump Operator Supervisor Time In 11/02/24 14:07:00 11/02/24 14:07:00 11/02/24 14:07:00 Time Out 11/02/24 15:48:00 11/02/24 15:48:00 11/02/24 15:48:00 Procedure LUMBAR LAMINECTOMY LUMBAR LAMINECTOMY LUMBAR LAMINECTOMY POSS. FUSION(.) POSS. FUSION(.) POSS. FUSION(.) Comments Last Modified By: Renetta Melendez Kelsie E Burgderfer, Kelsie E 11/02/24 15:51:39 11/02/24 15:51:39 11/02/24 15:51:39 Entry 7 Entry 8 Case Attendee Jin Presley Ii, Robert David Role Performed Staff - Other Anesthesiologist Laboratory Geneticist Time In 11/02/24 14:07:00 11/02/24 14:53:00 Time [...] Ani Berrios CRNA, Given Participants Ap PAUL, Al Garcia, Renetta E, Home Priest, Christal Perez, Katy William Time [...] FUSION L5-S1 Primary Procedure Yes Primary Surgeon Ap PAUL, Shashi Barragan Start 11/02/24 14:37:00 Stop 11/02/24 15:41:00 Anesthesia [...] Outcomes Met? Yes sciati (more content not included)...NormalSumma Health Wadsworth - Rittman Medical CenterBMPon 63-92-1406Jldda gap [Moles/Vol]8 mmol/LNormal6-16[facility] Comment on above:Performed By: #### [id number] #### [facility] Laboratory [address], [place] [address]Olblzau [Mass/Vol]8.0 mg/dLLow8.9-11.1FAvita Health System Galion HospitalComment on above:Performed By: #### [id number] #### [facility] Laboratory [address], [place] [address]Idkvysep [Moles/Vol]110 mmol/BIipdyk547-335WiyhxvSumma Health Wadsworth - Rittman Medical CenterComment on above:Performed By: #### [id number] #### [facility] [address], [place] [address]QG0 [Moles/Vol]24 mmol/FRyoyel16-31QmbkzySumma Health Wadsworth - Rittman Medical Center Comment on above:Performed By: #### [id number] #### [facility] [address], [place] [address]Lbrzedmsis [Mass/Vol]1.6 mg/dLHigh0.5-1.3FAvita Health System Galion HospitalComment on above:Performed By: #### [id number] #### [facility] [address], [place] [address]Cqbjfjt [Mass/Vol]106 mg/qDFlsmkr91-022LtmcdoSumma Health Wadsworth - Rittman Medical CenterComment on above:Performed By: #### [id number] #### [facility] [address], [place] [address]Mlolvhvji [Moles/Vol]4.1 mmol/LNormal3.5-5.3FAvita Health System Galion HospitalComment on above:Performed By: #### [id number] #### [facility] [address], [place] [address]Glqvlr [Moles/Vol]138 mmol/NRoqyyn030-241DivhprSumma Health Wadsworth - Rittman Medical CenterComment on above:Performed By: #### [id number] #### [facility] [address], [place] [address]Cici nitrogen [Mass/Vol]20 mg/dLNormal5-21[facility] Rittman Medical CenterComment on above:Performed By: #### [id number] #### [facility] [address], [place] [address]Nzec nitrogen/Creatinine [Mass ratio]12 No IbjgcYjfpuh41-29 [facility]itt[facility] Medical CenterComment on above:Performed By: #### [id number] #### [facility] Laboratory [address] [place] [address]JCW w/Indiceson 81-16-2636Chndcxasdzh distribution width (RBC) [Ratio]14.4 %High10.9-14.2FAvita Health System Galion HospitalComment on above:Performed By: #### [id number] #### [facility] [address] [place] [address]Hwjiqkcmxq (Bld) [Volume fraction]35.4 %Ebwlor33.0-46.0[facility] Rittman Medical CenterComment on above:Performed By: #### [id number] #### [facility] Laboratory [address] [place] [address]Xrefcqkvig (Bld) [Mass/Vol]11.9 g/dLLow12.0-16.0[facility]ittman Medical CenterComment on above:Performed By: #### [id number] #### [facility] [address] [place] [address]KNO (RBC) [Entitic mass]31.9 coCkyeog08.0-34.0[facility] Rittman Medical CenterComment on above:Performed By: #### [id number] #### [facility] [address] [place] [address]DOVQ (RBC) [Mass/Vol]33.7 g/rYEvjyxt04.4-36.0[facility]itt[facility] Medical CenterComment on above:Performed By: #### [id number] #### [facility] [address] [place] [address]TFK (RBC) [Entitic vol]94.5 bGUnupyy66.0-100.0[facility]itt[facility] Medical CenterComment on above:Performed By: #### [id number] #### [facility] Laboratory [address] [place] [address]Fggjhwzo mean volume (Bld) [Entitic vol]7.4 fLNormal6.4-10.8 [facility] Ritt[facility] Medical CenterComment on above:Performed By: #### [id number] #### [facility] Laboratory [address] [place] [address]Cuuuflrbb (Bld) [#/Vol]183.0 E9/BBdjsby065.0-500.0[facility] Rittman Medical CenterComment on above:Performed By: #### [id number] #### [facility] [address], [place] [address]DHR (Bld) [#/Vol]3.7 E12/LLow4.3-5.9[facility] Comment on above:Performed By: #### [id number] #### [facility] Laboratory [address], [place] [address]DRB size Nom (Bld)NORMALInvalid Interpretation CodeSumma Health Wadsworth - Rittman Medical CenterComment on above:Performed By: #### [id number] #### [facility] [address], [place] [address]NLZ corrected for nucl RBC Auto (Bld) [#/Vol]5.4 E9/LNormal 4.0-11.0[facility] Rittman Medical CenterComment on above:Performed By: #### [id number] #### [facility] [address], [place] [address]BJPQRLRNZNbzsgdv By: SYSTEM SYSTEM on 97-01-6170Dlnyk gap [Moles/Vol]8 mmol/LNormal6 - 16 mEq/LRemisol ChemCalcium [Mass/Vol]8.0 mg/dLLow 8.9 - 11.1 mg/dLRemisol ChemChloride [Moles/Vol]110 mmol/VBmmzvu695 - 111 mmol/L Remisol ChemCO2 [Moles/Vol]24 mmol/ZIcjqgu13 - 31 mmol/LRemisol ChemCreatinine [Mass/Vol]1.6 mg/dLHigh0.5 - 1.3 mg/dLRemisol MgzxoMRF86 mL/min/1.73 m2Low >=59mL/min/1.73 j8Zomoxpf ChemGlucose [Mass/Vol]106 mg/mBZpadrw88 - 199 mg/dL Remisol ChemMagnesium [Mass/Vol]1.8 mg/dLNormal1.3 - 2.4 mg/dLRemisol Chem Phosphate [Mass/Vol]3.1 mg/dLNormal1.9 - 4.6 mg/dLRemisol ChemPotassium [Moles/Vol]4.1 mmol/LNormal3.5 - 5.3 mmol/LRemisol ChemSodium [Moles/Vol]138 mmol/KIlgrvi166 - 145 mmol/LRemisol ChemUrea nitrogen [Mass/Vol]20 mg/dLNormal5 - 21 mg/dLRemisol ChemUrea nitrogen/Creatinine [Mass ratio]12 mg/vdUwogyn94 - 20 Remisol ChemDischarge Note-Nursingon 51-60-4826Ywgbmjltk Note-NursingDischarge Note-Nursing CASSI RODRIGEZ :1950 Visit Date:11/02/2024 Inpatient Discharge [...] time unless symptoms worsen. Where: [address] [place] [address]- Business (1) Follow Up with Shashi De Souza When: Comments: f/u3wks ok shower and remove dressing yzxxw35rtk no lift>5lbs keep incis dry clean. restart coumadin 3 days after surgery. 11-05-24Wednesday. Where: [address] [facility], [address] [place] [address]- [phone] Business (1) Medications What How Much When Why Instructions Next Dose New acetaminophen-oxycodone (Percocet 5 mg-325 mg oral tablet) 1 Tablets By Mouth 3 times a day as needed for Pain 4-7 Lumbar stenosis Duration: 7 Days Pickup at [facility]/pharmacy #[id number] as needed for pain Changed warfarin (warfarin [...] (at bedtime) 11/03 @ 9pm Pharmacy Information [id number] [address], [place] [phone] Test Results CBC BMP WBC: 5.4 E9/L [...] dexAMETHasone (Rash) Education Materials (more content not included)...[facility] HospitalHEMATOLOGYOrdered By: SYSTEM SYSTEM on 49-06-4941Bvtpydbuxey distribution width (RBC) [Ratio]14.4 %High10.9 - 14.2 %Remisol HemeHematocrit (Bld) [Volume fraction]35.4 %Ckfwrk76.0 - 46.0 %Remisol HemeHemoglobin (Bld) [Mass/Vol]11.9 g/dLLow12.0 - 16.0 gm/dLRemisol HemeMCH (RBC) [Entitic mass]31.9 tuZdyufl08.0 - 34.0 pgRemisol HemeMCHC (RBC) [Mass/Vol]33.7 g/eEJvljew95.4 - 36.0 gm/dLRemisol HemeMCV (RBC) [Entitic vol]94.5 zSDlyztc34.0 - 100.0 fLRemisol HemePlatelet mean volume (Bld) [Entitic vol]7.4 fLNormal6.4 - 10.8 fLRemisol HemePlatelets (Bld) [#/Vol]183.0 E9/DKrxybw108.0 - 500.0 E9/LRemisol HemeRBC (Bld) [#/Vol]3.7 E12/L Low4.3 - 5.9 E12/LRemisol HemeRBC size Nom (Bld)NORMAL *NA* (11/03/24 5:56 AM)Invalid Interpretation CodeRemisol HemeWBC corrected for nucl RBC Auto (Bld) [#/Vol]5.4 E9/LNormal4.0 - 11.0 E9/LRemisol HemeInterdisciplinary Note - Case Manageron 93-52-6637Ocxedjjkbkfeewzsy Note - Combination Operator Interdisciplinary Note - Combination Operator CRM to room 303 Patient is awake, [...] provided CRM contact, white board updated. CRM followingSheltering Arms HospitalComment on above:Result Comment: Electronically Signed By: Christal Chapman\.br\Date and Time Signed: 11/03/24 10:51 ESTInterdisciplinary Note - OTon 39-49-3957Ewxnoeyczsndoscek Note - OTInterdisciplinary Note - OT Ot [facility] six clicks score = no further OT needs. Patient is modified Ind w/ LE self care after instruction, Sup with transfers w/ fww. Pt has spouse support at home and will be safe to return home when medically stable. Pt has all necessary bathroom dme already in place.[facility] Magnesiumon 48-96-8549Ktaxcftha [Mass/Vol]1.8 mg/dLNormal1.3-2.4FAvita Health System Galion HospitalComment on above:Performed By: #### [id number] #### [facility] Laboratory [address], [place] [address]Hvcvwhckuxjx 64-18-2589Iwtiknljq [Mass/Vol]3.1 mg/dLNormal 1.9-4.6FAvita Health System Galion HospitalComment on above:Performed By: #### [id number] #### [facility] Laboratory [address], [place] [address]QJ Spine Single View Specify Levelon 27-53-8083QN Spine Single View Specify LevelExam Date/Time: 11/02/2024 16:28 EST Reason for Exam: Disc problems Report IMPRESSION: INTEROPERATIVE FLUOROSCOPY. CLINICAL HISTORY: Disc problems COMPARISON: NONE. FINDINGS: 3 images. 23.48mGy. Images show probe advanced through the cannula utilizing posterior approach with tip identified abutting lower lumbar spine. Please review operative note for additional information. Ordering Provider: Shashi De Souza FINAL REPORT Dictated: 11/03/2024 3:15 pm Signer Broderick PAUL Signed (Electronic Signature): 11/03/2024 3:15 pm Signed by: Broderick Sunshine MD Transcribed by: CLINTON Technologist: CHANTALE Technical Comments Radiation Dose: Zahrar in mGy = 23.48 DAP = na Fluoro Time: 26 secondsNoGerman HospitaleGFRon 79-49-1429iTCT69 mL/min/1.73 m2Low>=59Sum[facility] Rittman Medical CenterComment on above:Performed By: #### [id number] #### [facility] Laboratory [address], [place] [address]YUJ/Rhon 02-31-6307ZDJ/RhPositiveInvalid Interpretation Code [facility]itt[facility] Medical CenterComment on above:Performed By: #### [id number] #### [facility] Laboratory [address], [place] [address]MGG/Rh History Checkon 46-10-5110PTV/Rh History CheckVerified Hx Blood TypeNoGerman HospitalComment on above:Performed By: #### [id number] #### [facility] Laboratory [address], [place] [address]GLBPef 43-74-6652YTZT Gel InterpNegativeNoGerman HospitalComment on above:Performed By: #### [id number] #### [facility] Laboratory [address] [place] [address]GNFFI BANKOrdered By: Ericka Srinivasan on 52-15-0483TCW/Rh Interp PositiveInvalid Interpretation [facility] BB SubsectionABSC Gel InterpNegative (11/02/24 11:08 AM)NormalALL[facility]HE[facility] BB SubsectionBlood Bank ID#on [id number]# [id number] Interpretation [facility] HospitalComment on above: Performed By: #### [id number] #### [facility] Laboratory [address] [place] [address]JEQATXLDUCDOqmtoff By: Ericka Srinivasan on 78-31-5055hLIX Coag (PPP) [Time]43.4 sHigh25.1 - 36.5 second(s)[facility] Auto CoagComment on above: Interpretive Data: Parameter 15 days - 4 weeks 1 - [...] same coagulation reagent and instrumentation as [facility]. Currently there are no coagulation studies available worldwide for children to 14 days, andno normal ranges. Heparin therapeutic range (represented by Anti-Factor Xa activity of 0.2 - 0.4 U/mL) corresponds to PTT of 56.6 - 109.0 sec.INR Coag (PPP) [Relative time]1.26 {INR}Invalid Interpretation CodeALLIANCEHEALTH SEMINOLE – SEMINOLE Auto CoagComment on above:Interpretive Data: INR results are specifically intended to assess patients stabilized on long-term Anticoagulation therapy suggested INR s Less Intensive Anticoagulation 2.0 3.0 Conventional Range 3.0 4.5PT Coag (PPP) [Time]14.1 sHigh9.4 - 12.5 second(s)[facility] Auto CoagComment on above:Interpretive Data: 15 days - 4 weeks 1 - [...] same coagulation reagent and instrumentation as [facility]. Currently there are no coagulation studies available worldwide for children to 14 days, andno normal ranges.Inpatient Patient Summaryon 32-38-5560Yoavghwlj Patient Summary Inpatient Patient Summary [address] [address] [facility] Clinical Discharge Instructions PERSON INFORMATION Name: CASSI RODRIGEZ PHYSICIANS Admitting Physician: Shashi De Souza MD Attending Physician: Shashi De Souza MD PCP: BRODERICK HOWARD DO Discharge Diagnosis: Comment: PATIENT EDUCATION INFORMATION Instructions: Medication Leaflets: Follow up: With: Address: When: Shashi De Souza [address] [facility], [address] [place] [phone] Business (1) Comments: f/u3wks ok shower and remove dressing pncyf31mzz no lift>5lbs keep incis dry clean. restart coumadin 3 days after surgery. 11-05-24Wednesday. MEDICATION LIST New Medications [id number] [address], [place] [phone], [phone] acetaminophen-oxycodone (Percocet 5 mg-325 mg oral tablet) [...] 100 Milligram Subcutaneous every 12 hours. Bridging withWarfarin for surgery. ergocalciferol (Vitamin D) 50,000 International [...] day. takes 6 days of the week. Comment:[facility] HospitalMain OR Intraoperative Recordon [id number] OR Intraoperative RecordMain OR Intraoperative Record IntraOp Document Type FT Summary Primary Physician: Shashi De Souza MD Finalized Date/Time: 11/02/24 15:52:16 Pt. Name: CASSI RODRIGEZ DEVAN Mccormack./Sex: 1950 Female Med Rec #: [id number] Physician: Shashi De Souza MD Financial #: [id number] Pt. Type: A Room/Bed: [facility] Admit/Disch: 11/02/24 10:13:03 - Institution: [...] Role Performed CARLOS ALBERTO Surgeon - Primary Bank Vault Attendant - Primary Time In 11/02/24 14:07:00 11/02/24 [...] Katy Eastman Role Performed Scrub - Primary INFUSION RN Water Plant Pump Operator Supervisor Time In 11/02/24 14:07:00 11/02/24 14:07:00 11/02/24 14:07:00 Time Out 11/02/24 15:48:00 11/02/24 15:48:00 11/02/24 15:48:00 Procedure LUMBAR LAMINECTOMY LUMBAR LAMINECTOMY LUMBAR LAMINECTOMY POSS. FUSION(.) POSS. FUSION(.) POSS. FUSION(.) Comments Last Modified By: Renetta Melendez Kelsie E Burgderfer, Kelsie E 11/02/24 15:51:39 11/02/24 15:51:39 11/02/24 15:51:39 Entry 7 Entry 8 Case Attendee Jin Presley Ii, Robert David Role Performed Staff - Other Anesthesiologist Laboratory Geneticist Time In 11/02/24 14:07:00 11/02/24 14:53:00 Time [...] 11/02/24 14:37:05 Post-Care Text: (more content not included)...[facility] Main OR PACU I Recordon 30-14-2730Kjri OR PACU I RecordMain OR PACU I Record PACU Phase I Document Type FT Summary Primary Physician: Shashi De Souza MD Finalized Date/Time: 11/02/24 16:45:46 Pt. Name: CASSI RODRIGEZ/Sex: 1950 Female Med Rec #: [id number] Physician: Shashi De Souza MD Financial #: [id number] Pt. Type: A Room/Bed: [facility] [place]/ Admit/Disch: 11/02/24 10:13:03 - Institution: Case Times [...] individualized perioperative plan of care The patient's rightto privacy is maintained The patient's value system, [...] with or improved from baseline levels established preoperativelyThe patient's cardiovascular status is consistent with or improved from baseline levels established preoperatively The patient's cardiovascular status is consistent with or improved from baseline levels established preoperatively The patient demonstrates and/or reports adequate pain control throughout the perioperative period The patient received appropriate medication(s), safely administered during the perioperativeperiod Acuity Level PACU I FT Entry 1 Start Time 11/02/24 15:49:00 Stop Time 11/02/24 16:24:00 Acuity Level Acuity Level I Last Modified By: Josefina Tim RN 11/02/24 16:45:42 Finalized By: Josefina Tim RN Document Signatures Signed By: Josefina Tim RN 11/02/24 16:45NormSumma Health Akron CampusMain OR Preoperative Recordon [id number] OR Preoperative RecordMain OR Preoperative Record PreOp Document Type FT Summary Primary Physician: Shashi De Souza MD Finalized Date/Time: 11/02/24 14:42:51 Pt. Name: CASSI RODRIGEZ /Sex: 1950 Female Med Rec #: [id number] Physician: Shashi De Souza MD Financial #: [id number] Pt. Type: A Room/Bed: [facility] Admit/Disch: 11/02/24 10:13:03 - Institution: [...] Renetta Melendez 11/02/24 14:42 Renetta Melendez 11/02/24 14:42[facility] CenterOperative Reporton [id number] Report Operative Report Patient: CASSI RODRIGEZ Age: 74 years Sex: Female : 1950 Associated Diagnoses: None Author: Shashi De Souza MD Postoperative Information Procedure: l4-5 facetectomy complete foraminotomy laminectomy arthrodesis autograft microdissectionfluoroscopy preoperative stereotactic planning exploration spinal fusion l5-s1 Date/ Time: 11/02/2024 15:51:00 Preoperative Diagnosis: post laminectomy syndrome l5-s1, 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 Postoperative Diagnosis: same. Performed by: Shashi De [...] be to prevent you from becoming any worseand losing even more neurological function, such as weakness, numbness or worse pain. Alternatives to be exhausted prior to surgery may include: medication, therapy, interventional pain management, chiropractic, acupuncture, massage therapy. Operative procedure: Patient was brought to the operating room at [facility]. Timeout procedure performed. Patient was intubated by anesthesia service, monitoring lines were placed, preoperative antibioticswere given. Patient was placed in a prone [...] intact fusion no further surgery required at thislevel. Full decompression of the thecal sac and [...] and may have unintended errors. Anesthesia type: General.[facility] HospitalComment on above: Result Comment: Electronically Signed By: Shashi De Souza MD\.br\Date and Time Signed: 11/02/24 15:54 ESTOutpatient Surgery Discharge Instructionon 11-02-2024 Outpatient Surgery Discharge InstructionOutpatient Surgery Discharge Instruction [place] [address] Patient Discharge Instructions PERSON INFORMATION Name: RODRIGEZ CASSI HARTMAN Date of : 1950 Current Date: 11/02/2024 16:04:08 PHYSICIANS Admitting Physician: Shashi De Souza MD Discharge Diagnosis: CASSI RODRIGEZ has been given the following list of follow-up instructions, prescriptions, andpatient education materials: IF UNABLE TO CONTACT YOUR PHYSICIAN AND YOU FEEL IT IS AN EMERGENCY, GO TO THE NEAREST EMERGENCY ROOM OR CALL 911 I, CASSI RODRIGEZ, have received the attached patient education materials/instructions and have verbalized understanding: May we do a follow up call? Yes No I was present when discharge instructions were given Patient Signature Date Clinican/Nurse Signature Date Follow up: With: Address: When: Shashi De Souza [address] [facility], [address] [place] [phone] Business (1) Comments: f/u3wks ok shower and remove dressing mcitj67rbs no lift>5lbs keep incis dry clean. restart [...] to serve you. Thank you for choosing [facility] HERE ARE THE MEDICATION CHANGES THAT OCCURRED DURING YOUR HOSPITAL STAY New Medications [id number], [address], [place] [phone], [phone] acetaminophen-oxycodone (Percocet 5 mg-325 mg oral tablet) [...] 100 Milligram Subcutaneous every 12 hours. Bridging withWarfarin for surgery. ergocalciferol (Vitamin D) 50,000 International [...] the week. PATIENT EDUCATION INFORMATION Instructions: Medication Leaflets:[facility] HospitalPT & PTTon 31-44-3403aVID Coag (PPP) [Time]43.4 second(s)High25.1-36.5[facility] Psychiatric CenterComment on above:Result Comment: Parameter 15 days - 4 weeks 1 - [...] same coagulation reagent and instrumentation as [facility]. Currently there are no coagulation studies available worldwide for children to 14 days, andno normal ranges. Heparin therapeutic range (represented by Anti-Factor Xa activity of 0.2 - 0.4 U/mL) corresponds to PTT of 56.6 - 109.0 sec.Performed By: #### [id number] #### [facility] Laboratory [address], [place] [address]BPK Coag (PPP) [Relative time]1.26 {INR}Invalid Interpretation [facility] HospitalComment on above:Result Comment: INR results are specifically intended to assess patients stabilized on long-term Anticoagulation therapy suggested INR???s ???Less Intensive Anticoagulation??? 2.0 ??? 3.0 Conventional Range 3.0 ??? 4.5Performed By: #### [id number] #### [facility] [address], [place] [address]FC Coag (PPP) [Time]14.1 second(s)High9.4-12.5FAvita Health System Galion HospitalComment on above:Result Comment: 15 days - 4 weeks 1 - [...] same coagulation reagent and instrumentation as [facility]. Currently there are no coagulation studies available worldwide for children to 14 days, andno normal ranges.Performed By: #### [id number] #### [facility] Laboratory [address], [place] [address]Fhejoxy Education - Texton 11-10-8838Bndduqe Education - Text Patient Education - TextNormalSumma Health Wadsworth - Rittman Medical CenterABO/Rh Retypeon 02-84-4816UDC/Rh Retype InterpPositiveInvalid Interpretation CodeSumma Health Wadsworth - Rittman Medical CenterComment on above:Performed By: #### [id number] #### [facility] [address], [place] [address]ACEwe 64-23-5317Ewdro gap [Moles/Vol]11 mmol/LNormal6-16[facility]itt[facility] Medical CenterComment on above:Performed By: #### [id number] #### [facility] Laboratory [address], [place] [address]Egqitfi [Mass/Vol]8.7 mg/dLLow8.9-11.1FAvita Health System Galion HospitalComment on above:Performed By: #### [id number] #### [facility] Laboratory [address], [place] [address]Nbchsqui [Moles/Vol]109 mmol/ESzcsld952-488ZihutvSumma Health Wadsworth - Rittman Medical CenterComment on above:Performed By: #### [id number] #### [facility] Laboratory [address], [place] [address]GJ2 [Moles/Vol]25 mmol/NCstdlo74-03NuzxmoSumma Health Wadsworth - Rittman Medical Center Comment on above:Performed By: #### [id number] #### [facility] Laboratory [address], [place] [address]Aywvyhynwg [Mass/Vol]1.7 mg/dLHigh0.5-1.3FAvita Health System Galion HospitalComment on above:Performed By: #### [id number] #### [facility] Laboratory [address], [place] [address]Dxpodno [Mass/Vol]104 mg/vRRaazzv12-977CvgaedSumma Health Wadsworth - Rittman Medical CenterComment on above:Performed By: #### [id number] #### [facility] Laboratory [address], [place] [address]Nddwkgtlw [Moles/Vol]4.8 mmol/LNormal3.5-5.3FAvita Health System Galion HospitalComment on above:Performed By: #### [id number] #### [facility] Laboratory [address], [place] [address]Uuaoom [Moles/Vol]140 mmol/BXzzzxz845-170FdzjzqSumma Health Wadsworth - Rittman Medical CenterComment on above:Performed By: #### [id number] #### [facility] Laboratory [address], [place] [address]Nhjd nitrogen [Mass/Vol]22 mg/dLHigh5-21[facility]itt[facility] Medical CenterComment on above:Performed By: #### [id number] #### [facility] Laboratory [address], [place] [address]Bbzn nitrogen/Creatinine [Mass ratio]13 No DuntyBqawac66-80 [facility]itt[facility] Medical CenterComment on above:Performed By: #### [id number] #### [facility] Laboratory [address] [place] [address]WJC w/ Auto Diffon 44-56-5878Ecfrpjtjb/100 WBC (Bld)0.6 %Normal 0.0-2.0[facility] Rittman Medical CenterComment on above:Performed By: #### [id number] #### [facility] Laboratory [address] [place] [address] 81657Zrtdpaxut/Leukocytes Auto (Bld) [Pure # fraction]0.0 E9/LNormal 0.0-0.2FAvita Health System Galion HospitalComment on above:Performed By: #### [id number] #### [facility] Laboratory [address] [place] [address] 63753Ykayxsygkqj (Bld) [#/Vol]0.3 E9/LNormal0.0-0.5FAvita Health System Galion HospitalComment on above:Performed By: #### [id number] #### [facility] Laboratory [address] [place] [address] 10965Hbjoqhhnefw/100 WBC (Bld)6.0 %Normal0.0-8.0[facility]itt[facility] Medical CenterComment on above:Performed By: #### [id number] #### [facility] Laboratory [address] [place] [address] 60966Qgmwkgngogr distribution width (RBC) [Ratio]14.1 %Normal 10.9-14.2FAvita Health System Galion HospitalComment on above:Performed By: #### [id number] #### [facility] Laboratory [address] [place] [address] 15720Zifqpwuslq (Bld) [Volume fraction]36.8 %Uebypq31.0-46.0[facility]itt[facility] Medical CenterComment on above:Performed By: #### [id number] #### [facility] Laboratory [address] [place] [address] 53843Zaknvbhbnq (Bld) [Mass/Vol]12.4 g/yTWwnjof14.0-16.0[facility] Medical CenterComment on above:Performed By: #### [id number] #### [facility] Laboratory [address] [place] [address] 61362Pkhxamyncqv (Bld) [#/Vol]0.7 E9/LLow1.0-4.0[facility] Medical CenterComment on above:Performed By: #### [id number] #### [facility] Laboratory [address] [place] [address] 67293Wpezvzdfswo/100 WBC (Bld)15.2 %Fudemv05.0-50.0[facility] Medical CenterComment on above:Performed By: #### [id number] #### [facility] Laboratory [address] [place] [address] 32318IEK (RBC) [Entitic mass]31.4 nfXbwdhh56.0-34.0[facility] Medical CenterComment on above:Performed By: #### [id number] #### [facility] Laboratory [address] [place] [address] 62350RXXM (RBC) [Mass/Vol]33.8 g/hCAcctrm55.4-36.0[facility] Medical CenterComment on above:Performed By: #### [id number] #### [facility] Laboratory [address] [place] [address] 89231TSE (RBC) [Entitic vol]93.0 mRSiwojs66.0-100.0[facility] Medical CenterComment on above:Performed By: #### [id number] #### [facility] Laboratory [address] [place] [address] 87211Extwfpxrj (Bld) [#/Vol]0.3 E9/LNormal0.2-1.0[facility] Medical CenterComment on above:Performed By: #### [id number] #### [facility] Laboratory [address] [place] [address] 64542Ymjwtgjukof (Bld) [#/Vol]3.4 E9/LNormal2.0-7.5FAvita Health System Galion HospitalComment on above:Performed By: #### [id number] #### [facility] Laboratory [address], [place] [address]Amfriyuwmcn/100 WBC (Bld)71.7 %Gxfvpc89.0-75.0[facility] Medical CenterComment on above:Performed By: #### [id number] #### [facility] Laboratory [address], [place] [address]Yyryiuyx717.0 E9/ZEgvjwh880.0-500.0[facility] Comment on above:Performed By: #### [id number] #### [facility] Laboratory [address], [place] [address]Cskeknvu mean volume (Bld) [Entitic vol]7.4 fLNormal6.4-10.8 [facility] CenterComment on above:Performed By: #### [id number] #### [facility] Laboratory [address] [place] [address] 21732SEG (Bld) [#/Vol]4.0 E12/LLow4.3-5.9[facility] Comment on above:Performed By: #### [id number] #### [facility] Laboratory [address] [place] [address] 47998TQA corrected for nucl RBC Auto (Bld) [#/Vol]4.7 E9/LNormal 4.0-11.0[facility] Medical CenterComment on above:Performed By: #### [id number] #### [facility] Laboratory [address] [place] [address] 47721UT Spine Lumbar w/o Contraston 08-46-7751NQ Spine Lumbar w/o ContrastExam Date/Time: 10/23/2024 16:44 EST Reason for Exam: [...] Broderick Sunshine MD Transcribed by: [place] Technologist: CharissaSumma Health Wadsworth - Rittman Medical CenterPlt Function Assayon 18-81-0771Iamoigct function (closure time) collagen+EPINEPHrine induced (Bld) [Time]78 second(s)Ypkatm95-039AhwrgbSumma Health Wadsworth - Rittman Medical CenterComment on above:Result Comment: Normal ASA vWD Glanzmann???s Thrombasthenia ------- ------ ------- COL/EPI Normal Abnormal Abnormal Abnormal Col/ADP Normal Normal Abnormal AbnormalPerformed By: #### [id number] #### [facility] Laboratory [address], [place] [address]QB with Cult Rflxon 00-44-2342Xgkzqljru Ql (U)NegativeNormal NegativeSumma Health Wadsworth - Rittman Medical CenterComment on above:Performed By: #### [id number] #### [facility] Laboratory [address], [place] [address]Yhvgpfa (U)ClearNormalClearSumma Health Wadsworth - Rittman Medical CenterComment on above:Performed By: #### [id number] #### [facility] Laboratory [address], [place] [address]Mykjn (U)Light-YellowNormalYellowSumma Health Wad[facility] - [facility] Center Comment on above:Result Comment: Microscopic readings are only performed on those samples that meet specific criteria set forth by [facility] Laboratory.Performed By: #### [id number] #### [facility] Laboratory [address], [place] [address]Leknywd Ql (U)NegativeNormalNegativeSumma Health [facility] Comment on above:Performed By: #### [id number] #### [facility] Laboratory [address], [place] [address]Gnfqwoljpu Auto test strip (U) [Mass/Vol]NegativeNormalNegative [facility] CenterComment on above:Performed By: #### [id number] #### [facility] Laboratory [address], [place] [address]Oqamvhl Auto test strip Ql (U)NegativeNormalNegativeSumma Health Wadsworth - Rittman Medical CenterComment on above:Performed By: #### [id number] #### [facility] Laboratory [address], [place] [address]Bmnguunns esterase Auto test strip Ql (U)NegativeNormalNegative [facility] CenterComment on above:Performed By: #### [id number] #### [facility] Laboratory [address], [place] [address]Qgfnqbi Auto test strip Ql (U)NegativeNormalNegativeSumma Health Wadsworth - Rittman Medical CenterComment on above:Performed By: #### [id number] #### [facility] Laboratory [address], [place] [address]yT (U)5.5 [pH]Invalid Interpretation Code5.0-9.0[facility] Medical CenterComment on above:Performed By: #### [id number] #### [facility] Laboratory [address], [place] [address]Irlzsef Ql (U)NegativeNormalNegFirelands Regional Medical Center South Campus Comment on above:Performed By: #### [id number] #### [facility] Laboratory [address], [place] [address]Mnqjudib gravity (U) [Rel density]1.018Invalid Interpretation Code1.005-1.030[facility] Medical CenterComment on above:Performed By: #### [id number] #### [facility] Laboratory [address], [place] [address]Ceedkoptglbs (U) [Mass/Vol]NegativeNormalNegativeSumma Health Wadsworth - Rittman Medical CenterComment on above:Performed By: #### [id number] #### [facility] Laboratory [address], [place] [address]Ylye of Urine collection methodClean CatchNormSumma Health Akron CampusComment on above:Performed By: #### [id number] #### [facility] Laboratory [address], [place] [address]PI Chest 2 Viewson 63-57-6149WH Chest 2 ViewsExam Date/Time: 10/25/2024 11:53 EST Reason for Exam: [...] Ka,r in mGy = . 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 The average mitral E/e' ratio is10.3. TRICUSPID VALVE There is mild (1+) tricuspid [...] indication: Evaluation of device (pacemaker, ICD, or CARE TEAM COORDINATOR SCHEDULER) after revascularization - The left ventricle is normal in size. There is mild concentric left ventricular hypertrophy. Leftventricular systolic function is normal. EF = 57 5% (2D biplane) Grade I left ventricular diastolicdysfunction. - The right ventricle is normal in size. Right ventricular systolic function is normal. - Exam was compared with the prior echocardiographic exam performed on 09/15/2016. No significant change. * * * Final * * * CC [facility] : [id number]t [facility] 36-73-9338QXIBKfkeic Visit (NEADFV) JACECASSI ([id number]) 1950 F Date Time Provider Department 09/05/24 1:30 PM RANDA REILLYFV During your visit today, we [...] Jewell RN Botox, 2 vials: Lot # [id number] Exp 10/2026 Lot # [id number] Exp 10/[address] Reilly to administer and verified order. Randa Reilly MD 09/05/2024 1:54 PM Signed PROGRESS NOTE- HEADACHE MEDICINE SERVICE DATE: September 05, 2024 Location: [facility] Participants: patient, and provider HPI: [...] 3.Referral to sleep medicine Randa Reilly MD [facility] Randa Reilly MD 09/05/2024 1:54 [...] Injection Sites Muscle Fixed Site/Fixed Dose Bilat Reinstatement Clerk 20 U divided in 2 sites Procerus [...] Units wasted: 0 Randa Reilly MD [facility] R (more content not included)...NormalFairview HospitalECG COMPLETEon 09-01-2024 Atrial Rbkt25TJMHkuxoiwir ClinicCalculated P Vfjf96yfsfirsXwgberpdt Clinic Calculated R Lbxg41uaqqvxvUesqblkjh ClinicCalculated T Gglp31gvablnfOflpktkzl ClinicP-R Wqtkyubk684 msCleveland ClinicQRS Miovxoiu74 msCleveland ClinicQT Wylydbzc163 msCleveland ClinicQTC Calculation (Bazett)448 msCleveland Clinic Ventricular Pzpi76DAZCapanggva ClinicATRIAL-PACED RHYTHM LOW VOLTAGE QRS, CONSIDER PULMONARY DISEASE, PERICARDIAL EFFUSION, OR NORMAL VARIANT ABNORMAL ECG Confirmed by JONATHAN TELLEZ MD ([id number]) on 09/01/2024 1:53:38 PMHEART AND VASCULAR INSTITUTENAME : CASSI RODRIGEZ PID : [id number] : 1950 Gender : Female Race : [...] Referred By : , Acquired by : ,[facility] INSTITUTESum[facility] CampusCNOVon 43-93-3456EVTQ Office Visit (CAEPAV) JACECASSI Nery ([id number]) 1950 F Date Time Provider Department 08/31/24 10:00 AM KITTY VALENTE CAEPAV During your visit today, we recorded the following information about you: Pulse Blood pressure Weight Height 81/minute 134/72 88 kg 1.575 m Kitty Valente MD 09/02/2024 12:42 AM Signed [facility] Department of Cardiovascular Medicine SECTION OF CARDIAC PACING and ELECTROPHYSIOLOGY OUTPATIENT VISIT DATE NASRIN July 23, 2022 August 31, 2024 OUTPATIENT VISIT TYPE ESTABLISHED PRIMARY CARE PHYSICIAN: Broderick Howard MD ([facility]) [address] [place] [address] CHIEF COMPLAINT: Pacemaker management HISTORY OF PRESENT [...] is appropriate. Review of (more content not included)...NormalUpper Valley Medical CenterECG01on 91-96-1456HGQ03Ylvzdbdibfn Rate : 81 BPM Atrial Rate : 81 BPM P-R Interval : 186 ms QRS Duration : 80 ms Q-T Interval : 386 ms QTC Calculation(Bazett) : 448 ms Calculated P [place] : 74 degrees Calculated R [place] : 73 degrees Calculated T [place] : 67 degrees ATRIAL-PACED RHYTHM LOW VOLTAGE QRS, CONSIDER PULMONARY DISEASE, PERICARDIAL EFFUSION, OR NORMAL VARIANT ABNORMAL ECG Confirmed by JONATHAN TELLEZ MD ([id number]) on 09/01/2024 1:53:38 PM NAME : CASSI RODRIGEZ PID : [id number] : 1950 Gender : Female Race : [...] Referred By : , Acquired by : ,NormalUpper Valley Medical CenterErythrocyte distribution width Auto (RBC) [Ratio]on 84-17-7285Qtaszfqcuhv distribution width (RBC) [Ratio]13.0 %11.0-15.0[facility] HospitalErythrocyte distribution width (RBC) [Ratio]Erythrocyte distribution width [Ratio] by Automated count11.0-15.0 [facility] HospitalEstimated glomerular filtration rate (GFR) non- Americanon 71-39-0922PZT/1.73 sq M.predicted among non-blacks MDRD (S/P/Bld) [Vol rate/Area]26 mL/min/{1.73_m2}Low>=60 mL/min/1.73m 2FRegional Medical CenterGFR/1.73 sq M.predicted among non-blacks MDRD (S/P/Bld) [Vol rate/Area]Estimated glomerular filtration rate (GFR) non- Low>=60 mL/min/1.73m 2FRegional Medical CenterHematocrit Auto (Bld) [Volume fraction]on 26-24-8641Mklnwadwim (Bld) [Volume fraction]37.4 %36.0-48.0 [facility] HospitalHematocrit (Bld) [Volume fraction]Hematocrit [Volume Fraction] of Blood by Automated count36.0-48.0[facility] HospitalHemoglobin [Mass/volume] in Bloodon 73-49-5093Cxjzfaamvv (Bld) [Mass/Vol] 11.8 g/dLLow12.0-16.0[facility] HospitalHemoglobin (Bld) [Mass/Vol]Hemoglobin [Mass/volume] in BftiwTbh54.0-16.0[facility] HospitalIron binding capacity [Mass/volume] in Serum or Plasmaon 17-47-9800Chns binding capacity [Mass/Vol]356.0 ug/dL250.0-450.0[facility] HospitalIron binding capacity [Mass/Vol]Iron binding capacity [Mass/volume] in Serum or Opcoyf271.0-450.0[facility] HospitalIron saturation [Mass Fraction] in Serum or Plasmaon 19-09-4118Tojs saturation [Mass fraction]14.3 %[facility] HospitalIron saturation [Mass fraction] Iron saturation [Mass Fraction] in Serum or PlasmaPromedica Toledo HospitalLaboratory - Chemistry and Chemistry - challengeon 98-66-0016Weqnglw [Mass/Vol]3.3 g/dLLow3.4-5.0[facility] HospitalCalcium [Mass/Vol] 8.6 mg/dL8.5-10.1FRegional Medical CenterChloride [Moles/Vol]108 mmol/L Fnif56-574TqsdzqvriPromedica Toledo HospitalCO2 [Moles/Vol]21.8 mmol/L21.0-32.0 [facility] HospitalCreatinine [Mass/Vol]1.91 mg/dLHigh0.55-1.02 [facility] HospitalFerritin [Mass/Vol]15.0 ng/mL8.0-252.0[facility] HospitalGFR/1.73 sq M.predicted MDRD (S/P/Bld) [Vol rate/Area]31 mL/min/{1.73_m2}Low>=60 mL/min/1.73m 2FRegional Medical CenterGlucose [Mass/Vol]135 mg/cACdlz84-102HnlpbrjfaPromedica Toledo HospitalIron [Mass/Vol] 51.0 ug/dL50.0-170.0[facility] HospitalMagnesium [Mass/Vol]2.0 mg/dL1.8-2.4FRegional Medical CenterPotassium [Moles/Vol]4.0 mmol/L 3.5-5.1FOhioHealth Doctors Hospitalodium [Moles/Vol]142 mmol/R772-193 [facility] HospitalUrate [Mass/Vol]5.0 mg/dL2.6-6.0[facility] HospitalUrea nitrogen [Mass/Vol]24.0 mg/dLHigh7.0-18.0[facility] HospitalUrea nitrogen/Creatinine [Mass ratio]12.6 mg/mgPromedica Toledo HospitalBilirubin Ql (U)NegativeNEGATIVEPromedica Toledo HospitalGlucose (U) [Mass/Vol]NegativeNEGATIVEPromedica Toledo HospitalKetones Ql (U)NegativeNEGATIVEPromedica Toledo HospitalpH (U)5.5 [pH]5.0-9.0[facility] Community Hospitalpecific gravity (U) [Rel density] 1.0251.005-1.025Prom[facility] Toledo HospitalUrobilinogen Qn (U)0.2 {Lin'U}/dL0.2-1.0[facility] HospitalLaboratory - Specimen informationon 42-32-4502Tgakohnxfa (U)CLEARCLEARFRegional Medical CenterColor (U)YELLOWYELLOWPromedica Toledo HospitalLaboratory - Urinalysison 68-63-6370Hmkrqjdxb esterase Test strip Ql (U)NegativeNEGATIVE [facility] HospitalMucus Ql (Urine sed)NONE SEENNONE SEENPromedica Toledo HospitalNitrite Ql (U)NegativeNEGATIVEPromedica Toledo HospitalProtein (U) [Mass/Vol]16.2 mg/dLHigh<=11.9[facility] HospitalProtein Ql (U)NegativeNEG/TRACEPromedica Toledo HospitalLeukocytes [#/volume] corrected for nucleated erythrocytes in Blood by Automated counon 82-64-2318GDT corrected for nucl RBC Auto (Bld) [#/Vol]5.2 10 3/uL4.0-11.0 [facility] HospitalWBC corrected for nucl RBC Auto (Bld) [#/Vol] Leukocytes [#/volume] corrected for nucleated erythrocytes in Blood by Automated coun4.0-11.0[facility] Auto (RBC) [Entitic mass]on 81-08-4554EFP (RBC) [Entitic mass]31.1 pg26.7-34.0[facility] (RBC) [Entitic mass]MCH [Entitic mass] by Automated count26.7-34.0 [facility] Auto (RBC) [Mass/Vol]on 36-15-5471EHXM (RBC) [Mass/Vol]31.6 g/dL29.9-35.2FHighland District Hospital (RBC) [Mass/Vol]MCHC [Mass/volume] by Automated count29.9-35.2FRegional Medical CenterMCV Auto (RBC) [Entitic vol]on 46-34-4852LVU (RBC) [Entitic vol] 98.4 fL81.0-99.0[facility]tering Memorial HospitalV (RBC) [Entitic vol]MCV [Entitic volume] by Automated count81.0-99.0[facility] HospitalNo Panel Informationon 538447-Wuyqwtc Vitamin D Total22.3 ng/mLPromedica Toledo HospitalComment on above:<20 ng/mL Vit D slucpocmc84-<30 ng/mL Vit D qhwiwttvkrcx89-515 ng/mL Vit D sufficient>100 ng/mL Potential Toxicity Parathyroid Hormone (Intact)194 pg/dUYtoaimws50-39RvkaqdivaPromedica Toledo HospitalComment on above:Performed at: [employer] [address] [id number] Director: Junaid Sawyer PhD, Phone: [phone] Phosphorus Level3.0 mg/dL2.6-4.7FRegional Medical CenterUrine Bacteria NONE SEEN #/HPFNONE [facility] CenterUrine Occult Blood NegativeNEGATIVEPromedica Toledo HospitalUrine Other CastsNONE SEEN #/LPFNONE [facility] CenterUrine Other CrystalsNone Seen #/HPFNone [facility] HospitalUrine Random Mcjwgysgdf585.09 mg/dL20.00-300.00[facility] HospitalUrine RBCNONE SEEN #/HPF0-2 [facility] HospitalUrine Squamous Epithelial CellsRARE #/LPF NONE/RAREPromedica Toledo HospitalUrine WBC0-2 #/HPFAbnormalNONE SEEN [facility] HospitalPlatelet mean volume Auto (Bld) [Entitic vol]on 94-75-6671Nrpdgzcp mean volume (Bld) [Entitic vol]9.5 fL9.5-13.5FRegional Medical CenterPlatelet mean volume (Bld) [Entitic vol]Platelet mean volume [Entitic volume] in Blood by Automated count9.5-13.5FRegional Medical CenterPlatelets Auto (Bld) [#/Vol]on 89-58-2526Bwmddqfky (Bld) [#/Vol] 219 10 3/vP937-875ZyncvidhaPromedica Toledo HospitalPlatelets (Bld) [#/Vol] Platelets [#/volume] in Blood by Automated -287EtjkahhisPromedica Toledo HospitalRBC Auto (Bld) [#/Vol]on 91-04-4639CUU (Bld) [#/Vol]3.80 10 6/uL Low4.20-5.40Prom[facility]edo HospitalRBC (Bld) [#/Vol]Erythrocytes [#/volume] in Blood by Automated countLow4.20-5.40Bucyrus Community Hospitalerum or plasma anion gap determinationon 16-08-3714Yqvzg gap [Moles/Vol] 16.2 mmol/LFRegional Medical CenterAnion gap [Moles/Vol]Serum or plasma anion gap determinationPromedica Toledo HospitalUrine protein/creatinine ratioon 18-96-1363Blvvmko/Creatinine (U) [Ratio]0.12[facility] HospitalProtein/Creatinine (U) [Ratio]Urine protein/creatinine ratioPromedica Toledo HospitalBasophils Auto (Bld) [#/Vol]on 07-05-2024 Basophils (Bld) [#/Vol]0.0 10 3/uL0.0-0.1FRegional Medical Center Basophils/100 WBC Auto (Bld)on 09-82-0259Balbbwman/100 WBC (Bld)0.7 %0.2-2.0 [facility] HospitalEosinophils/100 WBC Auto (Bld)on 07-05-2024 Eosinophils/100 WBC (Bld)4.2 %0.9-7.0[facility] Erythrocyte distribution width Auto (RBC) [Ratio]on 80-14-8122Lukjzirqsfo distribution width (RBC) [Ratio]14.9 %11.0-15.0[facility] Hematocrit Auto (Bld) [Volume fraction]on 92-63-2353Vrowdsbhhi (Bld) [Volume fraction]36.5 %36.0-48.0[facility] HospitalHemoglobin [Mass/volume] in Bloodon 79-99-7096Qvogxckztb (Bld) [Mass/Vol]11.9 g/dLLow 12.0-16.0[facility] HospitalIron binding capacity [Mass/volume] in Serum or Plasmaon 69-33-2826Kpxn binding capacity [Mass/Vol]344.0 ug/dL 250.0-450.0[facility] HospitalIron saturation [Mass Fraction] in Serum or Plasmaon 56-76-3815Xzod saturation [Mass fraction]18.9 %[facility] HospitalLaboratory - Chemistry and Chemistry - challengeon 99-51-6542Ydglffynz (Vitamin B12) [Mass/Vol]400.0 pg/mL193.0-986.0[facility] HospitalFerritin [Mass/Vol]24.0 ng/mL8.0-252.0[facility] HospitalIron [Mass/Vol]65.0 ug/dL50.0-170.0[facility] HospitalLaboratory - Hematology and Cell countson 62-36-9250Izfkzcqe granulocytes/100 WBC (Bld)0.6 %High0.0-0.5FRegional Medical Center Leukocytes [#/volume] corrected for nucleated erythrocytes in Blood by Automated counon 75-36-4119PVF corrected for nucl RBC Auto (Bld) [#/Vol]5.4 10 3/uL 4.0-11.0[facility] HospitalLymphocytes Auto (Bld) [#/Vol]on 81-37-0273Hsyczsvvrlt (Bld) [#/Vol]0.8 10 3/uLLow1.2-3.8[facility] HospitalLymphocytes/100 WBC Auto (Bld)on 25-24-0978Rgijylycgat/100 WBC (Bld)14.4 %Low20.5-60.0[facility] HospitalH Auto (RBC) [Entitic mass]on 75-34-2905CXB (RBC) [Entitic mass]30.8 pg26.7-34.0[facility] HospitalMCHC Auto (RBC) [Mass/Vol]on 19-61-7315FPDL (RBC) [Mass/Vol]32.6 g/dL29.9-35.2FRegional Medical CenterMCV Auto (RBC) [Entitic vol]on 40-47-5062KPZ (RBC) [Entitic vol]94.6 fL81.0-99.0[facility] HospitalMonocytes Auto (Bld) [#/Vol]on 94-73-6148Ecvrcmwuj (Bld) [#/Vol]0.4 10 3/uL0.3-0.8[facility] HospitalMonocytes/100 WBC Auto (Bld)on 16-86-7949Dcbziibhr/100 WBC (Bld)6.5 %1.7-12.0[facility] Neutrophils Auto (Bld) [#/Vol]on 36-01-2365Gfyfcuhumvg (Bld) [#/Vol]4.0 10 3/uL 1.4-6.5FRegional Medical CenterNeutrophils/100 WBC Auto (Bld)on 04-91-3826Axqncogjvvy/100 WBC (Bld)73.6 %43.0-75.0[facility] HospitalNo Panel Informationon 12-41-6069Grl Manual DifferentialSee comment [facility] HospitalComment on above:SEE SCANNED REPORTEosinophils # (Auto)0.2 10 3/uL0.0-0.7FRegional Medical CenterFolate10.80 ng/mL 8.60-58.90Prom[facility]edo HospitalImmature Granulocyte # (Auto)0.03 10 3/uL0.00-0.03[facility] HospitalPlatelet mean volume Auto (Bld) [Entitic vol]on 32-70-0986Kmropivh mean volume (Bld) [Entitic vol]9.4 fLLow 9.5-13.5FRegional Medical CenterPlatelets Auto (Bld) [#/Vol]on 71-62-9804Nkbvuwkcu (Bld) [#/Vol]180 10 3/bH187-189WwmcypworPromedica Toledo HospitalRBC Auto (Bld) [#/Vol]on 69-73-7088XEP (Bld) [#/Vol]3.86 10 6/uLLow 4.20-5.40[facility] HospitalComprehensive metabolic 2000 panelon 78-13-0897Homkyzq [Mass/Vol]4.3 g/dL3.9 - 4.9 g/dLSalt Lake City ClinicALP [Catalytic activity/Vol]170 U/LHigh34 - 123 U/LCleveland ClinicALT [Catalytic activity/Vol]28 U/L7 - 38 U/LCleveland ClinicAnion gap [Moles/Vol]8 mmol/L8 - 15 mmol/LCleveland ClinicAST [Catalytic activity/Vol]22 U/L13 - 35 U/LCleveland ClinicBilirubin [Mass/Vol]0.4 mg/dL0.2 - 1.3 mg/dLSalt Lake City ClinicCalcium [Mass/Vol]8.8 mg/dL8.5 - 10.2 mg/dLSalt Lake City ClinicChloride [Moles/Vol]109 mmol/LHigh98 - 107 mmol/LCleveland ClinicCO2 [Moles/Vol]24 mmol/L22 - 30 mmol/L [facility] CampusCreatinine [Mass/Vol]1.73 mg/dLHigh0.58 - 0.96 mg/dLSalt Lake City ClinicGFR/1.73 sq M.predicted among non-blacks MDRD (S/P/Bld) [Vol rate/Area]31 mL/min/{1.73_m2}Low- PINFCleveland ClinicComment on above:Estimated Glomerular Filtration Rate (eGFR) is calculated using the 2020 CKD-EPI creatinine equation. This equation utilizes serum creatinine, sex, and age as parameters. The creatinine assay has traceable calibration to isotope dilution-mass spectrometry. Refer to KDIGO guidelines for clinical interpretation. In patients with unstable renal function, e.g. those with acute kidney injury, the eGFRmay not accurately reflect actual GFR.Glucose [Mass/Vol]111 mg/yHRgse15 - 99 mg/dL [facility] CampusComment on above:The [place] Diabetes [employer] (ADA) provides guidance for cutoff values for fasting glucose andrandom glucose. The ADA defines fasting as no caloric intake for at least 8 hours. Fasting plasma gl ucose results between 100 to 125 mg/dL indicate [...] Standards of Medical Care in Diabetes 2016, [place] [employer] Association. Diabetes Care. 2016.39(Suppl 1). Interpretation and review of laboratory resultsAbnormalCleveland ClinicPotassium [Moles/Vol]5.1 mmol/L3.7 - 5.1 mmol/LCleveland ClinicProtein [Mass/Vol]7.0 g/dL 6.3 - 8.0 g/dLSalt Lake City ClinicSodium [Moles/Vol]141 mmol/L136 - 144 mmol/L [facility] CampusUrea nitrogen [Mass/Vol]34 mg/dLHigh7 - 21 mg/dLUniversity Hospitals Tripoint Medical CenterLEVETIRACETAMon 20-26-8331vdvAEFJJithiz [Mass/Vol]59.9 ug/mLHigh 12.0 - 46.0 ug/mLClevelatrium health providence ClinicComment on above:This test is not suitable for patients receiving treatment with the drug brivaracetam (Briviact). The drug causes an interference that may lead to falsely elevated levetiracetam results. Reference ranges and high/low indicator flags are provided as general guidelines only. The treatingphysician must determine appropriate target levels/dosing based on the specific clinical situation. This test was developed and its performance characteristics determined by [facility]'s [facility] Pathology and Laboratory Medicine [place] ([facility]PL[facility]). It has not been cleared or approved by the FDA. [facility] is regulated under CLIA as qualified to perform high-complexity testing. Thistest is used for clinical purposes. It should not be regarded as investigational or for research. Laboratory - Chemistry and Chemistry - challengeon 02-84-9475Jzvimmm [Mass/Vol] 4.3 g/dL3.9-4.9[facility] HospitalALP [Catalytic activity/Vol]170 U/HDmns64-323WxlrajjyhPromedica Toledo HospitalALT [Catalytic activity/Vol]28 U/L 7-38[facility] HospitalAST [Catalytic activity/Vol]22 U/L13-35 [facility] HospitalBilirubin [Mass/Vol]0.4 mg/dL0.2-1.3FRegional Medical CenterCalcium [Mass/Vol]8.8 mg/dL8.5-10.2FRegional Medical CenterChloride [Moles/Vol]109 mmol/BIuao98-162UeicnemvuPromedica Toledo HospitalCO2 [Moles/Vol]24 mmol/P96-83GcinfgtraPromedica Toledo HospitalCreatinine [Mass/Vol]1.73 mg/dLHigh0.58-0.96Prom[facility] HospitalGlucose [Mass/Vol]111 mg/iNMyxp69-53CivhddgvyPromedica Toledo HospitalComment on above: The [place] Diabetes Association (ADA) provides guidance for cutoff [...] hyperglycemia or hyperglycemic crisis, random plasma glucose resultsgreater than or equal to 200 mg/dL meet the criteria for diagnosis of diabetes.Reference: Standardsof Medical Care in Diabetes 2016, [place] Diabetes Association. Diabetes Care. 2016.39(Suppl 1).Potassium [Moles/Vol]5.1 mmol/L3.7-5.1FOhioHealth Doctors Hospitalodium [Moles/Vol]141 mmol/X256-876HsgpxabksPromedica Toledo HospitalUrea nitrogen [Mass/Vol]34 mg/dLHigh7-21[facility] No Panel Informationon 84-98-1094Wcpwstkgz GFR (CKD-EPI)31 mL/min/1.73m???Low >=60Prom[facility]edo HospitalComment on above:Estimated Glomerular Filtration Rate (eGFR) is calculated using the 2020 CKD-EPI creatinine equation. This equation utilizes serum creatinine, sex, and age as parameters. The creatinine assay has traceable calibration to isotope dilution-mass spectrometry. Refer to KDIGO guidelines for clinical interpretation. In patients with unstable renal function, e.g. those with acute kidney injury, the eGFRmay not accurately reflect actual GFR.Levetiracetam (Keppra) Level59.9 ug/mLHigh 12.0-46.0[facility] HospitalComment on above:This test is not suitable for patients receiving treatment with the drug brivaracetam (Briviact). The drug causes an interference that may lead to falsely elevated levetiracetam results.Reference ranges and high/low indicator flags are provided as general guidelines only. The treating physician must determine appropriate target levels/dosing based on the specific clinical situation.This test was developed and its performance characteristics determined by [facility]'s [facility]ology [facility] Laboratory Medicine [place] ([facility]). It has not been cleared or approved by the FDA. -[facility] is regulated under CLIA as qualified to perform high-complexity testing. This test is used for clinical purposes. It should not be regarded as investigational or for research.Protein [Mass/volume] in Serum or Plasmaon 20-10-6401Hvymmoo [Mass/Vol]7.0 g/dL6.3-8.0[facility] Community Hospitalerum or plasma anion gap determinationon 92-46-1899Cuunl gap [Moles/Vol]8 mmol/L06-29Prom[facility] HospitallevETIRAcetam [Mass/Vol]on 87-94-5082Hgludnjsvnxmpn and review of laboratory resultsAbnormal [facility] CenterINR in Platelet poor plasma by Coagulation assay on 61-20-6878LCQ Coag (PPP) [Relative time]2.29 {INR}[facility] HospitalComment on above:DESIRED INR:2.0-3.0 CONDITIONS NOT LISTED BELOW2.5-3.5 FOR PROSTHETIC HEART VALVE REPLACEMENT2.5-3.5 RECURRENT THROMBOSISProthrombin time (PT)on 02-20-8929SI Coag (PPP) [Time]22.4 sHigh9.0-11.6FRegional Medical CenterCreatinine (Bld) [Mass/Vol]Ordered By: David Mcfadden on 05-30-2024 Creatinine [Mass/Vol]1.8 mg/dLHigh0.6-1.3FRegional Medical Center Comment on above:ER/ESD physician is notified/shown all ISTAT results.Critical values may be confirmed by laboratorytesting ifdeemed necessary by ER attending doctor.No Panel InformationOrdered By: David Mcfadden on 72-88-9163Alqsmrn Estimated GFR (eGFR)29.200Prom[facility]edo HospitalINR in Platelet poor plasma by Coagulation assayon 89-13-9461RGL Coag (PPP) [Relative time]2.71 {INR} [facility] HospitalComment on above:DESIRED INR:2.0-3.0 CONDITIONS NOT LISTED BELOW2.5-3.5 FOR PROSTHETIC HEART VALVE REPLACEMENT2.5-3.5 RECURRENT THROMBOSISProthrombin time (PT)on 45-95-0442GQ Coag (PPP) [Time]26.0 sHigh 9.0-11.6FRegional Medical CenterBasophils Auto (Bld) [#/Vol]on 45-02-4060Qjrighlff (Bld) [#/Vol]0.0 10 3/uL0.0-0.1FRegional Medical CenterBasophils/100 WBC Auto (Bld)on 44-97-8796Yfiqrikyu/100 WBC (Bld)1.1 % 0.2-2.0[facility] HospitalEosinophils/100 WBC Auto (Bld)on 94-62-7486Ivircsswzih/100 WBC (Bld)6.9 %0.9-7.0[facility] Erythrocyte distribution width Auto (RBC) [Ratio]on 76-45-3972Untewcpqrcy distribution width (RBC) [Ratio]13.3 %11.0-15.0[facility] Estimated glomerular filtration rate (GFR) non- Americanon 05-05-2024 GFR/1.73 sq M.predicted among non-blacks MDRD (S/P/Bld) [Vol rate/Area]32 mL/min/{1.73_m2}Low>=60Prom[facility] HospitalHematocrit Auto (Bld) [Volume fraction]on 50-89-2916Ftkxontibm (Bld) [Volume fraction]35.5 %Low 36.0-48.0[facility] HospitalHemoglobin [Mass/volume] in Bloodon 41-37-4845Qqxzjfizrl (Bld) [Mass/Vol]11.1 g/dLLow12.0-16.0[facility] HospitalLaboratory - Chemistry and Chemistry - challengeon 05-05-2024 Calcium [Mass/Vol]8.4 mg/dLLow8.5-10.1FRegional Medical CenterChloride [Moles/Vol]108 mmol/RIwqn46-687SfxdcnsboPromedica Toledo HospitalCO2 [Moles/Vol] 26.2 mmol/L21.0-32.0[facility] HospitalCreatinine [Mass/Vol]1.60 mg/dLHigh0.55-1.02[facility] HospitalGFR/1.73 sq M.predicted MDRD (S/P/Bld) [Vol rate/Area]38 mL/min/{1.73_m2}Low>=60[facility] HospitalGlucose [Mass/Vol]103 mg/hY43-635DrvlytfgiPromedica Toledo Hospital Potassium [Moles/Vol]4.4 mmol/L3.5-5.1FOhioHealth Doctors Hospitalodium [Moles/Vol]140 mmol/C790-128PiyaoettsPromedica Toledo HospitalUrea nitrogen [Mass/Vol]24.0 mg/dLHigh7.0-18.0[facility] HospitalUrea nitrogen/Creatinine [Mass ratio]15.0 mg/mgPromedica Toledo Hospital Laboratory - Hematology and Cell countson 42-56-1735NJD (Bld) [Velocity]45 mm/h High<=30Prom[facility] HospitalImmature granulocytes/100 WBC (Bld)0.0 %0.0-0.5FRegional Medical CenterLeukocytes [#/volume] corrected for nucleated erythrocytes in Blood by Automated counon 34-93-5159KMR corrected for nucl RBC Auto (Bld) [#/Vol]3.8 10 3/uLLow4.0-11.0[facility] HospitalLymphocytes Auto (Bld) [#/Vol]on 86-84-2022Vkpdbijiojq (Bld) [#/Vol]1.0 10 3/uLLow1.2-3.8Prom[facility] HospitalLymphocytes/100 WBC Auto (Bld)on 46-18-7254Zupnvfxbplg/100 WBC (Bld)27.1 %20.5-60.0[facility] HospitalMCH Auto (RBC) [Entitic mass]on 99-70-1553YTZ (RBC) [Entitic mass]28.8 pg 26.7-34.0[facility] HospitalMCHC Auto (RBC) [Mass/Vol]on 80-10-5479VDVQ (RBC) [Mass/Vol]31.3 g/dL29.9-35.2FRegional Medical CenterMCV Auto (RBC) [Entitic vol]on 04-12-2316CSE (RBC) [Entitic vol]92.2 fL 81.0-99.0[facility] HospitalMonocytes Auto (Bld) [#/Vol]on 34-63-2389Eguhqpejv (Bld) [#/Vol]0.3 10 3/uL0.3-0.8[facility] HospitalMonocytes/100 WBC Auto (Bld)on 45-10-7647Aunwgrwkb/100 WBC (Bld)8.2 % 1.7-12.0[facility] HospitalNeutrophils Auto (Bld) [#/Vol]on 99-93-8889Rgcmgyimedd (Bld) [#/Vol]2.1 10 3/uL1.4-6.5FRegional Medical CenterNeutrophils/100 WBC Auto (Bld)on 04-49-5832Ucnndlcftln/100 WBC (Bld)56.7 % 43.0-75.0[facility] HospitalNo Panel Informationon 25-60-9703G- Reactive Protein, Quantitative<0.50 mg/dL<=0.50[facility] Eosinophils # (Auto)0.3 10 3/uL0.0-0.7FRegional Medical CenterImmature Granulocyte # (Auto)0.00 10 3/uL0.00-0.03[facility] Platelet mean volume Auto (Bld) [Entitic vol]on 16-16-8074Gitkcwzb mean volume (Bld) [Entitic vol]9.4 fLLow9.5-13.5FRegional Medical CenterPlatelets Auto (Bld) [#/Vol]on 90-15-2004Jeqqrdhbt (Bld) [#/Vol]217 10 3/wJ621-926 [facility] HospitalRBC Auto (Bld) [#/Vol]on 31-77-1039QCK (Bld) [#/Vol]3.85 10 6/uLLow4.20-5.40[facility] Community Hospitalerum or plasma anion gap determinationon 85-34-6476Xabxc gap [Moles/Vol]10.2 mmol/LFRegional Medical CenterNo Panel Informationon 19-15-6250MEKEN_Niibjvzha [facility] Implant Date05/22/2015[facility] CampusModel5076 CapSureFix NovusCBrecksville [facility] PACEMAKER REMOTE CHECKon 57-60-9342TP Delay Adaptive Paced Minimum (ms)180 ms [facility] CampusAV Delay Adaptive Sensed Minimum (ms)150 msCleveland ClinicAV Delay Adaptive StatusDISABLEDCleveland ClinicBattery Voltage (volts)2.92 V [facility] CampusBra RA Pacing Amplitude (volts)1.5 VCleveland ClinicBrady RA Pacing PolarityBIDiley Ridge Medical Center RA Pacing Pulse Width (ms)0.4 msCleveland ClinicBrady RA Sensing Amplitude (mvolts)0.3 mVCleveland ClinicBrady RA Sensing Blanking Period (ms)150 msCleveland ClinicBrady RA Sensing PolarityBIACMC Healthcare Systemdy RA Sensing Refractory Period (ms)AutoCleveland ClinicBrady RV Pacing Amplitude (volts)2 VCleveland ClinicBrady RV Pacing PolarityThe [facility] RV Pacing Pulse Width (ms)0.4 msCleveland ClinicBrady RV Sensing Amplitude (mvolts)0.9 mVCleveland ClinicBrady RV Sensing Blanking Period (ms)200 ms [facility] RV Sensing PolarityThe MetroHealth SystemHysteresis Rate (bpm) DISABLEDSumma Health Barber[facility] CampusLead1 MfgMDTSumma Health Barberton CampusLead2 [facility] LocationRVSumma Health Barber[facility] CampusLocationRASumma Health Barberton CampusLower Rate (bpm)60 {beats}/minSumma Health Barberton CampusMax Sensor Rate (bmp)130 {beats}/minSumma Health [facility] Campus [id number] [facility]-Device [facility]- Percent Pacing (A)99.48 %[facility]-Percent Pacing (V)0.27 %[facility]-PMT InterventionENABLEDCKindred Hospital Dayton-PVC InterventionENABLED [facility]-Rate Modulation Acceleration [id number] sCleveland ClinicPM- Rate Modulation ADL Rate (bpm)100 {beats}/minSumma Health Barberton CampusPM-Rate Modulation DecelerationExerciseMercy Health St. [facility]-Rate Modulation ThresholdMediumLow [facility] CampusRA Bipolar Impedance iger213wlfCkbytggip ClinicRA Unipolar Impedance [id number] ClinicRV Bipolar Impedance [id number] ClinicRV Unipolar Phqevhftz268zenJbyggnnmv ClinicSerial [id number] [facility] Hospitaleria [id number] ClinicSeria [id number] [facility] CampusThrresearch medical center RA Capture Amplitude (volts)0.5 VCleveland ClinicThresh RA Capture Duration (ms)0.4 msCleveland ClinicThresh RA Sensing Amplitude (mvolts)3.125 mVCleveland ClinicThresh RV Capture Amplitude (volts)0.875 V [facility] RV Capture Duration (ms)0.4 msCleveland ClinicThresh RV Sensing Amplitude (mvolts)11.875 mVCleveland ClinicTracking Rate (bpm)130 {beats}/minSumma Health Barber[facility] Campus03/15/2024 DUAL CHAMBER PACEMAKER REMOTE EVALUATION: PRESENTING EGM: [...] CARDIAC DATA AND REPORT, Scanned Documents section. [facility] ClinicAlbumin [Mass/volume] in Serum or Plasmaon 10-78-4512Hpoarhn [Mass/Vol]3.5 g/dL2.9-4.4FRegional Medical Center Basophils Auto (Bld) [#/Vol]on 72-75-1046Kqnpqnlsr (Bld) [#/Vol]0.0 10 3/uL 0.0-0.1FRegional Medical CenterBasophils/100 WBC Auto (Bld)on 66-05-9196Hanvqqjjg/100 WBC (Bld)0.7 %0.2-2.0[facility] Eosinophils/100 WBC Auto (Bld)on 91-34-8765Yriecmsmxot/100 WBC (Bld)10.8 %High 0.9-7.0[facility] HospitalErythrocyte distribution width Auto (RBC) [Ratio]on 07-83-6988Xgmzrasogeg distribution width (RBC) [Ratio]13.5 % 11.0-15.0[facility] HospitalEstimated glomerular filtration rate (GFR) non- Americanon 97-13-4646AOH/1.73 sq M.predicted among non-blacks MDRD (S/P/Bld) [Vol rate/Area]34 mL/min/{1.73_m2}Low>=60Prom[facility] HospitalGlobulin Calc (S) [Mass/Vol]on 70-95-1712Svoxcazq (S) [Mass/Vol] 3.6 g/dLPromedica Toledo HospitalHematocrit Auto (Bld) [Volume fraction] on 25-34-9771Ixpddtldtx (Bld) [Volume fraction]38.8 %36.0-48.0[facility] HospitalHemoglobin [Mass/volume] in Bloodon 72-57-6206Qngxkpnblz (Bld) [Mass/Vol]11.9 g/dLLow12.0-16.0[facility] HospitalIgA [Mass/volume] in Serum or Plasmaon 03-63-7385AoR [Mass/Vol]265 mg/fZ97-231 [facility] HospitalIgG [Mass/volume] in Serum or Plasmaon 14-08-8767PeI [Mass/Vol]911 mg/zO617-5273NxmekswlyPromedica Toledo HospitalIgM [Mass/volume] in Serum or Plasmaon 87-74-8251TrZ [Mass/Vol]64 mg/lU69-883 [facility] HospitalImmunoglobulin light chains.kappa.free [Mass/volume] in Serumon 48-43-1083Htbkjcomgklwxc light chains.kappa.free (S) [Mass/Vol]44.7 mg/LAbnormal3.3-19.4FRegional Medical Center Immunoglobulin light chains.kappa.free/Immunoglobulin light chains.lambda.free [Yanelis 21-29-5104Atvbzrirvyidpq light chains.kappa.free/Immunoglobulin light chains.lambda.free (S) [Mass ratio]1.160.26-1.65Prom[facility]edo HospitalComment on above:Performed at: - [facility] [address] [id number] Director: Junaid Sawyer PhD, Phone: [phone] Immunoglobulin light chains.lambda.free [Mass/volume] in Serum or Plasmaon 64-48-4527Epluvaaqjqvawy light chains.lambda.free [Mass/Vol]38.7 mg/LAbnormal 5.7-26.3FRegional Medical CenterIron binding capacity [Mass/volume] in Serum or Plasmaon 32-93-6227Clnu binding capacity [Mass/Vol]338.0 ug/dL 250.0-450.0[facility] HospitalIron saturation [Mass Fraction] in Serum or Plasmaon 12-74-5341Tbon saturation [Mass fraction]7.7 %[facility] HospitalLaboratory - Chemistry and Chemistry - challengeon 20-96-1796Peodbps [Mass/Vol]3.3 g/dLLow3.4-5.0[facility] ALP [Catalytic activity/Vol]155 U/QVtgn99-093ApfoqruyqPromedica Toledo Hospital ALT [Catalytic activity/Vol]21 U/O97-79XiaayngspPromedica Toledo HospitalAST [Catalytic activity/Vol]25 U/C15-41ZgmfpcjzsPromedica Toledo HospitalBilirubin [Mass/Vol]0.4 mg/dL0.2-1.0[facility] HospitalCalcium [Mass/Vol]9.0 mg/dL8.5-10.1FRegional Medical CenterChloride [Moles/Vol]106 mmol/L 98-107Prom[facility] HospitalCO2 [Moles/Vol]21.4 mmol/L21.0-32.0 [facility] HospitalCobalamin (Vitamin B12) [Mass/Vol]495.0 pg/mL 193.0-986.0[facility] HospitalCreatinine [Mass/Vol]1.50 mg/dLHigh 0.55-1.02Prom[facility] HospitalFerritin [Mass/Vol]19.0 ng/mL8.0-252.0 [facility] HospitalGFR/1.73 sq M.predicted MDRD (S/P/Bld) [Vol rate/Area]41 mL/min/{1.73_m2}Low>=60Prom[facility] HospitalGlucose [Mass/Vol]113 mg/iZHsmi07-004FxgrdryqtPromedica Toledo HospitalIron [Mass/Vol] 26.0 ug/dLLow50.0-170.0[facility] HospitalPotassium [Moles/Vol]4.3 mmol/L3.5-5.1FRegional Medical CenterProtein [Mass/Vol]6.9 g/dL6.4-8.2 [facility] Hospitalodium [Moles/Vol]139 mmol/X123-236XtikbopqzPromedica Toledo HospitalUrea nitrogen [Mass/Vol]25.0 mg/dLHigh7.0-18.0[facility] HospitalUrea nitrogen/Creatinine [Mass ratio]16.7 mg/mgPromedica Toledo HospitalLaboratory - Hematology and Cell countson 03-03-2024 Immature granulocytes/100 WBC (Bld)0.0 %0.0-0.5FRegional Medical Center Leukocytes [#/volume] corrected for nucleated erythrocytes in Blood by Automated counon 82-17-9958LBY corrected for nucl RBC Auto (Bld) [#/Vol]2.8 10 3/uLLow 4.0-11.0[facility] HospitalLymphocytes Auto (Bld) [#/Vol]on 40-78-7427Reimmcxvzyf (Bld) [#/Vol]0.8 10 3/uLLow1.2-3.8[facility] HospitalLymphocytes/100 WBC Auto (Bld)on 25-90-7142Npbhlhshvxa/100 WBC (Bld)27.6 %20.5-60.0[facility] Auto (RBC) [Entitic mass]on 44-23-3150SAP (RBC) [Entitic mass]28.8 pg26.7-34.0[facility] Auto (RBC) [Mass/Vol]on 57-18-1760AUXN (RBC) [Mass/Vol]30.7 g/dL29.9-35.2FRegional Medical CenterMCV Auto (RBC) [Entitic vol]on 85-41-8086KQA (RBC) [Entitic vol]93.9 fL81.0-99.0[facility] HospitalMonocytes Auto (Bld) [#/Vol]on 31-16-3074Pswliyzuf (Bld) [#/Vol]0.3 10 3/uL0.3-0.8[facility] HospitalMonocytes/100 WBC Auto (Bld)on 11-37-7383Yfrllahds/100 WBC (Bld)9.7 %1.7-12.0[facility] Neutrophils Auto (Bld) [#/Vol]on 40-78-0576Thobvpwfkqb (Bld) [#/Vol]1.4 10 3/uL 1.4-6.5FRegional Medical CenterNeutrophils/100 WBC Auto (Bld)on 34-21-9278Cpwgzvnaxfp/100 WBC (Bld)51.2 %43.0-75.0[facility] HospitalNo Panel Informationon 85-17-3622Lygreesnfkd # (Auto)0.3 10 3/uL0.0-0.7 [facility] HospitalFolate9.50 ng/mL8.60-58.90Prom[facility]edo HospitalImmature Granulocyte # (Auto)0.00 10 3/uL0.00-0.03[facility] HospitalProtein Electrophoresis M-SpikeNot Observed g/dLNot ObservedPromedica Toledo HospitalProtein Electrophoresis NoteComment. [facility] HospitalComment on above:Protein electrophoresis scan will follow via computer,mail, or master cook delivery.Platelet mean volume Auto (Bld) [Entitic vol]on 95-29-4178Rwlczsbv mean volume (Bld) [Entitic vol]9.4 fL Low9.5-13.5FRegional Medical CenterPlatelets Auto (Bld) [#/Vol]on 14-76-9408Eijntgrfg (Bld) [#/Vol]203 10 3/fE306-674QafjritfnPromedica Toledo HospitalProtein [Mass/volume] in Serum or Plasmaon 86-43-4470Zjmuuec [Mass/Vol]6.2 g/dL6.0-8.5FRegional Medical CenterRBC Auto (Bld) [#/Vol]on 03-03-2024 RBC (Bld) [#/Vol]4.13 10 6/uLLow4.20-5.40[facility] Hospitalerum globulin measurement (mass/volume)on 25-88-5219Xukltseb (S) [Mass/Vol]2.7 g/dL 2.2-3.9[facility] Hospitalerum or plasma albumin/globulin mass ratioon 61-47-3994Cpznegb/Globulin [Mass ratio]0.9 {ratio}[facility] HospitalAlbumin/Globulin [Mass ratio]1.3 {ratio}0.7-1.7FOhioHealth Doctors Hospitalerum or plasma alpha 1 globulin measurement by electrophoresis (mass/volume)on 64-64-0492Mmlan 1 globulin Elph [Mass/Vol]0.3 g/dL0.0-0.4 [facility] Hospitalerum or plasma alpha 2 globulin measurement by electrophoresis (mass/volume)on 94-27-8753Ipich 2 globulin Elph [Mass/Vol]0.7 g/dL0.4-1.0[facility] Hospitalerum or plasma anion gap determinationon 23-80-9088Sjdkb gap [Moles/Vol]15.9 mmol/LFOhioHealth Doctors Hospitalerum or plasma beta globulin measurement by electrophoresis (mass/volume)on 75-35-4580Blqz globulin Elph [Mass/Vol]1.0 g/dL0.7-1.3FOhioHealth Doctors Hospitalerum or plasma gamma globulin measurement by electrophoresis (mass/volume)on 24-93-9239Ntqce globulin Elph [Mass/Vol]0.8 g/dL 0.4-1.8[facility] Hospitalerum or plasma immunoelectrophoresis interpretationon 03-77-2324Cdqxwbduwjzlss IEP [Interp]Comment.[facility] HospitalComment on above:No monoclonality detected.Estimated glomerular filtration rate (GFR) non- Americanon 46-00-8493QHZ/1.73 sq M.predicted among non-blacks MDRD (S/P/Bld) [Vol rate/Area]27 mL/min/{1.73_m2}>=60Prom[facility] HospitalGlobulin Calc (S) [Mass/Vol]on 24-27-5672Prkorivv (S) [Mass/Vol]3.7 g/dLPromedica Toledo HospitalLaboratory - Chemistry and Chemistry - challengeon 35-72-5577Ywqajgz [Mass/Vol]3.3 g/dL3.4-5.0[facility] HospitalALP [Catalytic activity/Vol]174 U/U14-238EirnmulnkPromedica Toledo HospitalALT [Catalytic activity/Vol]24 U/D48-47HgvkveuhdPromedica Toledo HospitalAmylase [Catalytic activity/Vol]16 U/E68-591VlyhosaxcPromedica Toledo HospitalAST [Catalytic activity/Vol]19 U/T20-07WbjdggdqlPromedica Toledo HospitalBilirubin [Mass/Vol]0.4 mg/dL0.2-1.0[facility] Calcium [Mass/Vol]8.6 mg/dL8.5-10.1FRegional Medical CenterChloride [Moles/Vol]107 mmol/O53-518TisukjomzPromedica Toledo HospitalCO2 [Moles/Vol]26.8 mmol/L21.0-32.0[facility] HospitalCreatinine [Mass/Vol]1.81 mg/dL 0.55-1.02Prom[facility] HospitalGFR/1.73 sq M.predicted MDRD (S/P/Bld) [Vol rate/Area]33 mL/min/{1.73_m2}>=60[facility] HospitalGlucose [Mass/Vol]85 mg/vG74-644HwphlzhttPromedica Toledo HospitalLipase [Catalytic activity/Vol]13.0 U/L16.0-77.0[facility] HospitalPotassium [Moles/Vol]4.6 mmol/L3.5-5.1FRegional Medical CenterProtein [Mass/Vol] 7.0 g/dL6.4-8.2FOhioHealth Doctors Hospitalodium [Moles/Vol]143 mmol/L 136-145Prom[facility] HospitalUrea nitrogen [Mass/Vol]25.0 mg/dL 7.0-18.0[facility] HospitalUrea nitrogen/Creatinine [Mass ratio] 13.8 mg/mgBucyrus Community Hospitalerum or plasma albumin/globulin mass ratioon 10-73-0732Ksygity/Globulin [Mass ratio]0.9 {ratio}[facility] Hospitalerum or plasma anion gap determinationon 54-64-0246Ywied gap [Moles/Vol]13.8 mmol/LFOhioHealth Doctors Hospitalerum or plasma cancer antigen 19-9 measurement (units/volume)on 84-63-0704Goenaa Ag 19-9 Qn13 [arb'U]/mL0-35Prom[facility] Toledo HospitalComment on above:[employer] Electrochemiluminescence Immunoassay(ECLIA)Values obtained with different assay methods or kits cannotbe used interchangeably. Results cannot be interpreted asabsolute evidence of the presence or absence of malignantdisease.Performed at: [facility] [id number] Director: Junaid Sawyer PhD, Phone: [phone] Panel Informationon 76-15-5420OQKES_Iojqlbsni ClinicImplant Date05/22/2015[facility] CampusModel5076 CapSureFix NovusCmercy health willard hospitaland ClinicPACEMAKER CLINIC CHECKon 20-84-7828SO Delay Adaptive Paced Minimum (ms)180 msCleveland ClinicAV Delay Adaptive Sensed Minimum (ms)150 msCleveland ClinicAV Delay Adaptive Status DISABLEDSumma Health Barberton CampusBattery Voltage (volts)2.94 VCleveland ClinicBrady RA Pacing Amplitude (volts)1.5 VCleveland ClinicBrady RA Pacing PolarityBISalt Lake City ClinicBrady RA Pacing Pulse Width (ms)0.4 msCleveland ClinicBrady RA Sensing Amplitude (mvolts)0.3 mVCleveland ClinicBrady RA Sensing Blanking Period (ms)150 msCleveland ClinicBrady RA Sensing PolarityBIMarion Hospitalveland Olivia Hospital And ClinicsBrady RA Sensing Refractory Period (ms)AutoCleveland ClinicBrady RV Pacing Amplitude (volts)2 V [facility] Systemdy RV Pacing PolarityBIACMC Healthcare Systemdy RV Pacing Pulse Width (ms)0.4 msCleveland ClinicBrady RV Sensing Amplitude (mvolts)0.9 mV [facility] Sensing Blanking Period (ms)200 msCleveland ClinicBrady RV Sensing PolarityBISumma Health Barberton CampusHysteresis Rate (bpm)DISABLEDSumma Health Barberton CampusLead1 MfgMDTSumma Health Barberton CampusLead2 MfgMDTSumma Health Barberton CampusLocationRV [facility] CampusLocationRASumma Health Barberton CampusLower Rate (bpm)60 {beats}/min [facility] CampusMax Sensor Rate (bmp)130 {beats}/minSumma Health Barberton [id number] COBOS[address]-Device MfUC Health-Percent Pacing (A)99.4 %[facility]-Percent Pacing (V)0.24 %[facility]-PMT InterventionENABLEDCleveland [facility]inson Health Hospital-PVC InterventionENABLEDCKindred Hospital Dayton- Rate Modulation Acceleration Tprvgzsc60 sC[facility]-Rate Modulation ADL Rate (bpm)100 {beats}/minMer[facility] Health St. [facility]-Rate Modulation DecelerationExercise [facility]-Rate Modulation ThresholdMediumLowSumma Health Barberton CampusRA Bipolar Impedance [id number] [facility] Hospitaland [facility] ClinicsRA Unipolar Impedance fykd708 [facility] HospitalRV Bipolar Impedance pzve773 ohAllianceHealth Seminole – Seminoleand Olivia Hospital And ClinicsRV Unipolar Cxtfksolk348 Pomerene Hospitalerial [id number] ClinicSerial Number [id number] ClinicSerial [id number] ClinicThresh RA Capture Amplitude (volts)0.5 VCleveland ClinicThresh RA Capture Duration (ms)0.4 msCleveland ClinicThresh RA Sensing Amplitude (mvolts)1.5 mVCleveland Clinic Thresh RV Capture Amplitude (volts)0.75 VCleveland ClinicThresh RV Capture Duration (ms)0.4 msCleveland ClinicThresh RV Sensing Amplitude (mvolts)13.125 mV [facility] CampusTracking Rate (bpm)130 {beats}/minSumma Health Barberton CampusBasophils Auto (Bld) [#/Vol]Ordered By: Niki Weeks on 82-70-7106Mrztoodbv (Bld) [#/Vol]0.0 10*3/uL0.0-0.2FRegional Medical CenterBasophils/100 WBC Auto (Bld) Ordered By: Niki Weeks on 02-22-0377Xknjjfjhx/100 WBC (Bld)0.2 %.[facility] HospitalCalcium [Mass/volume] in Serum or PlasmaOrdered By: Niki Jags on 55-61-2253Cuuzvwq [Mass/Vol]8.1 mg/dL8.6-10.3FRegional Medical CenterCarbon dioxide, total [Moles/volume] in Serum or Plasma Ordered By: Niki Blades on 74-72-6803QA2 [Moles/Vol]25.2 mmol/L21.0-31.0 [facility] HospitalChloride [Moles/volume] in Serum or Plasma Ordered By: Niki Blades on 95-44-2667Mghvkwca [Moles/Vol]111 mmol/L98-107 [facility] HospitalCreatinine [Mass/volume] in Serum or Plasma Ordered By: Niki Blades on 91-57-0257Xinpuvhaxl [Mass/Vol]1.43 mg/dL0.60-1.20 [facility] HospitalEosinophils Auto (Bld) [#/Vol]Ordered By: Niki Blades on 74-89-0280Kqydqzszoyd (Bld) [#/Vol]0.1 10*3/uL0.0-0.45 [facility] HospitalEosinophils/100 WBC Auto (Bld)Ordered By: Niki Jags on 41-59-2227Piqvxazsshw/100 WBC (Bld)1.7 %.[facility] HospitalErythrocyte distribution width Auto (RBC) [Ratio]Ordered By: Niki Jags on 96-98-1323Jwdbzwygmjn distribution width (RBC) [Ratio]13.5 % 11.9-15.3FRegional Medical CenterGlucose [Mass/volume] in Serum or PlasmaOrdered By: Niki Desi on 00-35-6116Lonrqrg [Mass/Vol]121 mg/bS75-535 [facility] HospitalComment on above:ADA recommended reference rangeRandom Glucose Reference Range is dependent on time and content of last meal. Glucose of more than 200 mg/dL in a nonstressed, ambulatory subject supports the diagnosisof Diabetes Mellitus.Hematocrit Auto (Bld) [Volume fraction]Ordered By: Niki Desi on 71-05-4737Nbgofobqon (Bld) [Volume fraction]29.9 %34.0-46.4FRegional Medical CenterHemoglobin [Mass/volume] in BloodOrdered By: Niki Rms on 88-66-0768Bizvshfqww (Bld) [Mass/Vol]10.0 g/dL11.8-15.4FRegional Medical CenterLeukocytes [#/volume] corrected for nucleated erythrocytes in Blood by Automated coun Ordered By: Niki Blades on 30-89-4509SAZ corrected for nucl RBC Auto (Bld) [#/Vol]7.3 10*3/uL3.8-11.6FRegional Medical CenterLymphocytes Auto (Bld) [#/Vol]Ordered By: Niki Blades on 92-67-1306Khlkakyguaw (Bld) [#/Vol] 0.9 10*3/uL1.00-4.8[facility] HospitalLymphocytes/100 WBC Auto (Bld)Ordered By: Niki Blades on 44-67-4694Hcrqtzvjqxf/100 WBC (Bld)11.8 %. [facility] HospitalMCH Auto (RBC) [Entitic mass]Ordered By: Niki Blades on 78-10-2901HEN (RBC) [Entitic mass]31.9 pg24.7-34.3FRegional Medical CenterMCHC Auto (RBC) [Mass/Vol]Ordered By: Niki Blades on 68-15-6972TCXG (RBC) [Mass/Vol]33.5 g/dL32.0-35.0[facility] HospitalMCV Auto (RBC) [Entitic vol]Ordered By: Niki Blades on 27-07-0283MRY (RBC) [Entitic vol]95.1 nN49-256VxgkvwlllPromedica Toledo HospitalMonocytes Auto (Bld) [#/Vol]Ordered By: Niki Blades on 00-00-7293Wgqradcks (Bld) [#/Vol]0.7 10*3/uL0.0-0.8[facility] HospitalMonocytes/100 WBC Auto (Bld) Ordered By: Niki Blades on 84-04-6600Jkqmgsloe/100 WBC (Bld)9.2 %.[facility] HospitalNeutrophils Auto (Bld) [#/Vol]Ordered By: Niki Rms on 81-78-3205Ykzxbjahfkc (Bld) [#/Vol]5.6 10*3/uL1.8-7.7FRegional Medical CenterNeutrophils/100 WBC Auto (Bld)Ordered By: Niki Weeks on 74-79-3204Aranbipcxfk/100 WBC (Bld)77.1 %.[facility] HospitalNo Panel InformationOrdered By: Niki Weeks on 68-54-3233Rgrfxfncc GFR (CKD-EPI) 38.727 mL/MinPromedica Toledo HospitalPharmacy Creatinine Clearance (Chem38.09[facility] HospitalNucleated erythrocytes [Presence] in Blood by Automated countOrdered By: Niki Weeks on 30-55-6223Lwvlwniis RBC Auto Ql (Bld)0.4 /100{WBC}0-0.5FRegional Medical CenterPlatelet mean volume Auto (Bld) [Entitic vol]Ordered By: Niki Weeks on 30-58-9619Pfvfuvbk mean volume (Bld) [Entitic vol]7.6 fL6.3-10.7FRegional Medical Center Platelets Auto (Bld) [#/Vol]Ordered By: Niki Weeks on 18-77-2348Fqjripztz (Bld) [#/Vol]147 10*3/wO354-457XbdwbuyrePromedica Toledo HospitalPotassium [Moles/volume] in Serum or PlasmaOrdered By: Niki Weeks on 08-05-2023 Potassium [Moles/Vol]4.4 mmol/L3.5-5.1FRegional Medical CenterRBC Auto (Bld) [#/Vol]Ordered By: Niki Rms on 11-11-2845ZOU (Bld) [#/Vol]3.14 10*6/uL3.60-5.00[facility] Hospitalerum or plasma anion gap determinationOrdered By: Niki Weeks on 66-13-3311Vnsph gap [Moles/Vol]7.2 mmol/L6.0-15.0[facility] Hospitalodium [Moles/volume] in Serum or PlasmaOrdered By: Niki Desi on 28-29-7766Svzslv [Moles/Vol]139 mmol/L 136-145[facility] HospitalUrea nitrogen [Mass/volume] in Serum or PlasmaOrdered By: [facility] Blades on 32-64-7264Asyq nitrogen [Mass/Vol]25 mg/dL 7-25[facility] HospitalWBC Auto (Bld) [#/Vol]Ordered By: Niki Blades on 47-91-3499ASW (Bld) [#/Vol]7.3 10*3/uL3.8-11.6FRegional Medical CenterActivated partial thromboplastin time (aPTT) in platelet poor plasma by coagulation aOrdered By: Cj Gamboa on 92-03-7731kXGS Coag (PPP) [Time]44.3 s25.1-36.5FRegional Medical CenterComment on above:A hematocrit value greater than 55% may lead to inaccurate results in coagulation testing. Patientshaving hematocrit values >55% require a special collection tube for coagulation studies. Please contact the laboratory at [phone] for redraw instructions.INR in Platelet poor plasma by Coagulation assayOrdered By: Cj Gamboa on 18-44-8950JUP Coag (PPP) [Relative time]2.1 {INR}[facility] HospitalComment on above:INR Therapeutic Range A) Pre- and Peroperative OAT started two weeks before surgery. NOT HIP SURGERY: 1.5 - 2.5 HIP SURGERY: 2 - 3B) Primary and secondary prevention of venous THROMBOSIS: 2 - 3C) Active venous thrombosis, pulmonary embolismand prevention of recurrent venous thrombosis: 2 - 3D) Prevention of arterial thromboembolismincluding patients with mechanical heart valves: 3 - 4.5Prothrombin time (PT)Ordered By: Cj Gamboa on 89-50-5763QM Coag (PPP) [Time]24.8 s9.0-12.9[facility] HospitalComment on above:A hematocrit value greater than 55% may lead to inaccurate results in coagulation testing. Patientshaving hematocrit values >55% require a special collection tube for coagulation studies. Please contact the laboratory at [phone] for redraw instructions.Basophils Auto (Bld) [#/Vol] Ordered By: Niki Blades on 79-19-0719Iwmauxvxk (Bld) [#/Vol]0.0 10*3/uL 0.0-0.2FRegional Medical CenterBasophils/100 WBC Auto (Bld)Ordered By: Niki Blades on 36-82-8467Ojstdaqgq/100 WBC (Bld)0.6 %.[facility] HospitalBilirubin Test strip Ql (U)Ordered By: Niki Blades on 20-45-2897Ampnrwzmw Ql (U)NegativeNegativePromedica Toledo Hospital Calcium [Mass/volume] in Serum or PlasmaOrdered By: Niki Blades on 07-20-2023 Calcium [Mass/Vol]8.6 mg/dL8.6-10.3FRegional Medical CenterCarbon dioxide, total [Moles/volume] in Serum or PlasmaOrdered By: Niki Blades on 96-79-9138QU6 [Moles/Vol]26.3 mmol/L21.0-31.0[facility] Chloride [Moles/volume] in Serum or PlasmaOrdered By: Niki Blades on 46-10-8499Wkddrnkh [Moles/Vol]109 mmol/P82-379UqpqfkbewPromedica Toledo Hospital Color Auto (U)Ordered By: Niki Blades on 75-25-2684Nopqc (U)YellowYellow [facility] HospitalCreatinine [Mass/volume] in Serum or Plasma Ordered By: Niki Blades on 04-11-8018Pmjhltbwcx [Mass/Vol]1.52 mg/dL0.60-1.20 [facility] HospitalEosinophils Auto (Bld) [#/Vol]Ordered By: Niki Blades on 68-01-7399Mcoghavhhaz (Bld) [#/Vol]0.3 10*3/uL0.0-0.45 [facility] HospitalEosinophils/100 WBC Auto (Bld)Ordered By: Niki Blades on 52-87-8828Vjlyglbpvwq/100 WBC (Bld)4.9 %.[facility] HospitalErythrocyte distribution width Auto (RBC) [Ratio]Ordered By: Niki Weeks on 72-07-9858Nroapwkttlo distribution width (RBC) [Ratio]13.5 % 11.9-15.3FRegional Medical CenterGlucose [Mass/volume] in Serum or PlasmaOrdered By: Niki Weeks on 11-42-6940Vwbptup [Mass/Vol]120 mg/zS57-497 [facility] HospitalComment on above:ADA recommended reference rangeRandom Glucose Reference Range is dependent on time and content of last meal. Glucose of more than 200 mg/dL in a nonstressed, ambulatory subject supports the diagnosisof Diabetes Mellitus.Hematocrit Auto (Bld) [Volume fraction]Ordered By: Niki Weeks on 33-32-8887Yvyqrpgxfy (Bld) [Volume fraction]38.3 %34.0-46.4FRegional Medical CenterHemoglobin [Mass/volume] in BloodOrdered By: Niki Weeks on 01-58-7328Nlfmqrnpcg (Bld) [Mass/Vol]12.6 g/dL11.8-15.4FRegional Medical CenterKetones Auto test strip (U) [Mass/Vol]Ordered By: Niki Weeks on 99-60-8923Kqelkki (U) [Mass/Vol]NegativeNegativePromedica Toledo HospitalLeukocytes [#/volume] corrected for nucleated erythrocytes in Blood by Automated counOrdered By: Niki Weeks on 25-03-7129HWS corrected for nucl RBC Auto (Bld) [#/Vol]5.2 10*3/uL3.8-11.6FRegional Medical CenterLymphocytes Auto (Bld) [#/Vol] Ordered By: Niki Weeks on 75-99-0165Xxsgcflwzpv (Bld) [#/Vol]0.7 10*3/uL 1.00-4.8[facility] HospitalLymphocytes/100 WBC Auto (Bld)Ordered By: Niki Weeks on 06-35-0589Wyuynrozmxe/100 WBC (Bld)13.8 %.[facility] HospitalMCH Auto (RBC) [Entitic mass]Ordered By: Niki Blades on 15-05-1531NPC (RBC) [Entitic mass]30.9 pg24.7-34.3FRegional Medical CenterMCHC Auto (RBC) [Mass/Vol]Ordered By: Niki Blades on 66-58-5202BJHB (RBC) [Mass/Vol]33.0 g/dL32.0-35.0[facility] HospitalMCV Auto (RBC) [Entitic vol]Ordered By: Niki Blades on 08-06-6128CHX (RBC) [Entitic vol]93.7 aV19-178GcwsaxyliPromedica Toledo HospitalMonocytes Auto (Bld) [#/Vol] Ordered By: Niki Blades on 19-05-0625Pzdltchuk (Bld) [#/Vol]0.4 10*3/uL 0.0-0.8[facility] HospitalMonocytes/100 WBC Auto (Bld)Ordered By: Niki Jags on 40-45-3244Htwdhecnd/100 WBC (Bld)6.9 %.[facility] HospitalNeutrophils Auto (Bld) [#/Vol]Ordered By: Niki Blades on 95-28-8448Hnwnqlomuiz (Bld) [#/Vol]3.8 10*3/uL1.8-7.7FRegional Medical CenterNeutrophils/100 WBC Auto (Bld)Ordered By: Niki Desi on 07-20-2023 Neutrophils/100 WBC (Bld)73.8 %.[facility] HospitalNitrite Test strip Ql (U)Ordered By: Niki Desi on 17-70-7917Mjlxaur Ql (U)Negative NegativePromedica Toledo HospitalNo Panel InformationOrdered By: Niki Weeks on 93-92-0409Xlfdeside GFR (CKD-EPI)35.992 mL/MinPromedica Toledo HospitalPharmacy Creatinine Clearance (ChemN/[facility] HospitalNucleated erythrocytes [Presence] in Blood by Automated countOrdered By: Niki Weeks on 43-04-3362Flgxserxf RBC Auto Ql (Bld)0.1 /100{WBC}0-0.5 [facility] HospitalPlatelet mean volume Auto (Bld) [Entitic vol] Ordered By: Niki Blades on 60-09-1925Dxqbapeo mean volume (Bld) [Entitic vol] 7.2 fL6.3-10.7FRegional Medical CenterPlatelets Auto (Bld) [#/Vol] Ordered By: Niki Blades on 11-79-8244Eunnzmeod (Bld) [#/Vol]194 10*3/uL 150-450[facility] HospitalPotassium [Moles/volume] in Serum or PlasmaOrdered By: Niki Blades on 51-90-7448Zbrgqgusy [Moles/Vol]4.6 mmol/L 3.5-5.1FRegional Medical CenterProtein Auto test strip (U) [Mass/Vol] Ordered By: Niki Blades on 64-19-6779Waqljdu (U) [Mass/Vol]NegativeNegative [facility] HospitalRBC Auto (Bld) [#/Vol]Ordered By: Niki Blades on 96-61-3873XLB (Bld) [#/Vol]4.09 10*6/uL3.60-5.00[facility] Community Hospitalerum or plasma anion gap determinationOrdered By: Niki Blades on 22-74-1276Bwzac gap [Moles/Vol]9.3 mmol/L6.0-15.0[facility] Hospitalodium [Moles/volume] in Serum or PlasmaOrdered By: Niki Blades on 34-96-4650Oanoyu [Moles/Vol]140 mmol/L301-820DwldwimkwPromedica Toledo Hospital Specific gravity Auto test strip (U) [Rel density]Ordered By: Niki Blades on 61-97-3253Jvteposd gravity (U) [Rel density]1.0211.001-1.030[facility] HospitalUrea nitrogen [Mass/volume] in Serum or PlasmaOrdered By: Niki Blades on 62-52-9616Uqny nitrogen [Mass/Vol]30 mg/dL7-25[facility] HospitalUrine clarity by refractometry automatedOrdered By: Niki Blades on 50-85-2606Hqzmlyf Refractometry automated (U)ClearClearFRegional Medical CenterUrine glucose measurement by automated test strip (mass/volume) Ordered By: Niki Weeks on 99-96-3496Azklkna Auto test strip (U) [Mass/Vol] Normal mg/dLNoThe MetroHealth SystemUrine hemoglobin detection by automated test stripOrdered By: Niki Weeks on 90-85-1529Euotsnvvwl Auto test strip Ql (U)NegativeNegBarney Children's Medical CenterUrine leukocyte esterase detection by automated test stripOrdered By: Niki Weeks on 20-43-0838Ogsgvmciw esterase Auto test strip Ql (U)NegativeNegBarney Children's Medical CenterUrobilinogen Auto test strip (U) [Mass/Vol]Ordered By: Niki Weeks on 39-10-3299Suiyckoupxnd (U) [Mass/Vol]Normal mg/dLNoAultman Alliance Community HospitalWBC Auto (Bld) [#/Vol]Ordered By: Niki Weeks on 44-10-9107TKO (Bld) [#/Vol]5.2 10*3/uL3.8-11.6FRegional Medical CenterpH Auto test strip (U)Ordered By: Niki Weeks on 56-14-1482eV (U)5.5 [pH]5.0-9.0[facility] HospitalNo Panel Informationon [id number]_Qaoihlfcp ClinicImplant Date05/22/2015[facility] CampusModel5076 CapSureFix NovusCleveland ClinicPACEMAKER REMOTE CHECKon [id number] Delay Adaptive Paced Minimum (ms)180 msCleveland ClinicAV Delay Adaptive Sensed Minimum (ms)150 msCleveland ClinicAV Delay Adaptive StatusDISABLEDCleveland ClinicBattery Voltage (volts)2.94 VCleveland ClinicBrady RA Pacing Amplitude (volts)1.5 VCleveland ClinicBrady RA Pacing PolarityBISumma Health Barberton CampusBrady RA Pacing Pulse Width (ms)0.4 msCleveland ClinicBrady RA Sensing Amplitude (mvolts) 0.3 mVCleveland ClinicBrady RA Sensing Blanking Period (ms)150 msCleveland ClinicBrady RA Sensing PolarityBISumma Health Barberton CampusBrady RA Sensing Refractory Period (ms)AutoCleveland ClinicBrady RV Pacing Amplitude (volts)2 VCleveland ClinicBrady RV Pacing PolarityBIACMC Healthcare Systemdy RV Pacing Pulse Width (ms) 0.4 msCleveland ClinicBrady RV Sensing Amplitude (mvolts)0.9 mVCleveland Clinic Godfrey RV Sensing Blanking Period (ms)200 msCleveland ClinicBrady RV Sensing PolarityBISumma Health Barberton CampusHysteresis Rate (bpm)DISABLEDSumma Health Barberton CampusLead1 Mfg MDTCleveland ClinicLead2 MfgMDTSumma Health Barberton CampusLocationRVSumma Health [facility] Campus LocationRASumma Health Barberton CampusLower Rate (bpm)60 {beats}/minSumma Health Barberton CampusMax Sensor Rate (bmp)130 {beats}/minSumma Health Barberton [id number] COBOS [facility]-Device [facility]-Percent Pacing (A)99.76 % [facility]-Percent Pacing (V)0.11 %[facility]-PMT Intervention ENABLEDMercy Health St. [facility]-PVC InterventionENABLEDCKindred Hospital Dayton-Rate Modulation Acceleration Jwtuecjl52 sClSt. John of God Hospital-Rate Modulation ADL Rate (bpm)100 {beats}/minMercy Health St. [facility]-Rate Modulation DecelerationExercise [facility]-Rate Modulation ThresholdMediumLowSumma Health Barberton CampusRA Bipolar Impedance ualg041 [facility] Hospitaland ClinicRA Unipolar Impedance ibxd659 ohAllianceHealth Seminole – Seminoleand ClinicRV Bipolar Impedance digt759 [facility] Hospitaland [facility] Hospital And ClinicsRV Unipolar Elmvdfwrf706 [facility] Hospitalerial [id number] ClinicSerial Number [id number] ClinicSerial [id number] ClinicThresh RA Capture Amplitude (volts)0.5 VCleveland ClinicThresh RA Capture Duration (ms)0.4 msCleveland ClinicThresh RA Sensing Amplitude (mvolts)2.25 mVCleveland Clinic Thresh RV Capture Amplitude (volts)0.75 VCleveland ClinicThresh RV Capture Duration (ms)0.4 msCleveland ClinicThresh RV Sensing Amplitude (mvolts)12.875 mV [facility] Hospitalcking Rate (bpm)130 {beats}/minSumma Health Barberton CampusCreatinine (Bld) [Mass/Vol]Ordered By: Broderick Howard on 39-42-8833Iufahzmntt [Mass/Vol]1.6 mg/dL0.6-1.3FRegional Medical CenterComment on above:ER/ESD physician is notified/shown all ISTAT results.Critical values may be confirmed by laboratorytesting ifdeemed necessary by ER attending doctor.No Panel Information on [id number]_Spnlbkgqt ClinicImplant Date05/22/2015[facility] 5076 CapSureFix NovusCleveland ClinicPACEMAKER REMOTE CHECKon [id number] Delay Adaptive Paced Minimum (ms)180 msCleveland ClinicAV Delay Adaptive Sensed Minimum (ms)150 msCleveland ClinicAV Delay Adaptive StatusDISABLEDCleveland ClinicBattery Voltage (volts)2.95 VCleveland ClinicBrady RA Pacing Amplitude (volts)1.5 VCleveland ClinicBrady RA Pacing PolarityBISumma Health Barberton CampusBrady RA Pacing Pulse Width (ms)0.4 msCleveland ClinicBrady RA Sensing Amplitude (mvolts) 0.3 mVCleveland ClinicBrady RA Sensing Blanking Period (ms)150 msCleveland ClinicBrady RA Sensing PolarityBIMarion Hospitalveland Olivia Hospital And ClinicsBrady RA Sensing Refractory Period (ms)AutoCleveland ClinicBrady RV Pacing Amplitude (volts)2 VCleveland ClinicBrady RV Pacing PolarityBISumma Health Barberton CampusBrady RV Pacing Pulse Width (ms) 0.4 msCleveland ClinicBrady RV Sensing Amplitude (mvolts)0.9 mVCleveland Clinic Godfrey RV Sensing Blanking Period (ms)200 msCleveland ClinicBrady RV Sensing PolarityBISumma Health Barberton CampusHysteresis Rate (bpm)DISABLEDSumma Health Barberton CampusLead1 Mfg MDTCleveland ClinicLead2 MfgMDTSumma Health Barberton CampusLocationRVSumma Health [facility] Campus LocationRASumma Health Barberton CampusLower Rate (bpm)60 {beats}/minSumma Health Barberton CampusMax Sensor Rate (bmp)130 {beats}/minSumma Health Barberton [id number] COBOS [facility]-Device MfUC Health-Percent Pacing (A)99.67 % [facility]-Percent Pacing (V)0.2 %[facility]-PMT Intervention ENABLEDMercy Health St. [facility]-PVC InterventionENABLEDCKindred Hospital Dayton-Rate Modulation Acceleration Vjwbvvhr90 sCleveland ClinicPM-Rate Modulation ADL Rate (bpm)100 {beats}/minSumma Health Barberton CampusPM-Rate Modulation DecelerationExercise [facility] CampusPM-Rate Modulation ThresholdMediumLowSumma Health Barberton CampusRA Bipolar Impedance mrhd160 ohleveland ClinicRA Unipolar Impedance nziu916 ohmCleveland ClinicRV Bipolar Impedance rmov723 ohleveland ClinicRV Unipolar Lwpinkxhe973 [facility] Hospitalerial [id number] ClinicSerial Number [id number] ClinicSerial [id number] ClinicThresh RA Capture Amplitude (volts)0.5 VCleveland ClinicThresh RA Capture Duration (ms)0.4 msCleveland ClinicThresh RA Sensing Amplitude (mvolts)2.25 mVCleveland Clinic Thresh RV Capture Amplitude (volts)0.875 VCleveland ClinicThresh RV Capture Duration (ms)0.4 msCleveland ClinicThresh RV Sensing Amplitude (mvolts)12.875 mV [facility] CampusTracking Rate (bpm)130 {beats}/minSumma Health Barberton CampusNo Panel Informationon [id number]_[id number] ClinicImplant Date05/22/2015[facility] CampusModel5076 CapSureFix NovusCleveland ClinicPACEMAKER REMOTE CHECKon [id number] Delay Adaptive Paced Minimum (ms)180 msCleveland ClinicAV Delay Adaptive Sensed Minimum (ms)150 msCleveland ClinicAV Delay Adaptive Status DISABLEDSumma Health Barberton CampusBattery Voltage (volts)2.96 VCleveland ClinicBrady RA Pacing Amplitude (volts)1.5 VCleveland ClinicBrady RA Pacing PolarityBISumma Health Barberton CampusBrady RA Pacing Pulse Width (ms)0.4 msCleveland ClinicBrady RA Sensing Amplitude (mvolts)0.3 mVCleveland ClinicBrady RA Sensing Blanking Period (ms)150 msCleveland ClinicBrady RA Sensing PolarityBISumma Health Barberton CampusBrady RA Sensing Refractory Period (ms)AutoCleveland ClinicBrady RV Pacing Amplitude (volts)2 V [facility] CampusBrady RV Pacing PolarityBIACMC Healthcare Systemdy RV Pacing Pulse Width (ms)0.4 msCleveland ClinicBrady RV Sensing Amplitude (mvolts)0.9 mV [facility]CMC Healthcare Systemdy RV Sensing Blanking Period (ms)200 msCleveland ClinicBrady RV Sensing PolarityBISumma Health Barberton CampusHysteresis Rate (bpm)DISABLEDSumma Health Barberton CampusLead1 MfgMDTSumma Health Barberton CampusLead2 MfAshtabula County Medical CenterLocationRV [facility] CampusLocationRASumma Health Barberton CampusLower Rate (bpm)60 {beats}/min [facility] CampusMax Sensor Rate (bmp)130 {beats}/minSumma Health Barberton [id number] [facility]-Device [facility]-Percent Pacing (A)99.43 %[facility]-Percent Pacing (V)0.17 %[facility]-PMT InterventionENABLEDCmercy health willard hospitaland [facility]-PVC InterventionENABLEAdams County Regional Medical Centerand [facility]- Rate Modulation Acceleration Pamtkrwv11 sClSt. John of God Hospital-Rate Modulation ADL Rate (bpm)100 {beats}/minMercy Health St. [facility]-Rate Modulation DecelerationExercise [facility]-Rate Modulation ThresholdMediumLowSumma Health Barberton CampusRA Bipolar Impedance dvcs090 [facility] Hospitaland [facility] And ClinicsRA Unipolar Impedance pfsq285 [facility] Memorial HospitalRV Bipolar Impedance htci105 ohAllianceHealth Seminole – Seminoleand Olivia Hospital And ClinicsRV Unipolar Tuwbbaxpe440 [facility] Hospitalerial [id number] ClinicSerial Number [id number] ClinicSerial [id number] ClinicThresh RA Capture Amplitude (volts)0.5 VCleveland ClinicThresh RA Capture Duration (ms)0.4 msCleveland ClinicThresh RA Sensing Amplitude (mvolts)1.875 mVCleveland Clinic Thresh RV Capture Amplitude (volts)0.75 VCleveland ClinicThresh RV Capture Duration (ms)0.4 msCleveland ClinicThresh RV Sensing Amplitude (mvolts)11.75 mV [facility] CampusTracking Rate (bpm)130 {beats}/minSumma Health Barberton CampusNo Panel Informationon [id number]_Yoxcbochp ClinicImplant 05/22/2015[facility] CampusModel5076 CapSureFix NovusCleveland ClinicPACEMAKER REMOTE CHECKon [id number] Delay Adaptive Paced Minimum (ms)180 msCleveland ClinicAV Delay Adaptive Sensed Minimum (ms)150 msCleveland ClinicAV Delay Adaptive Status DISABLEDMiddletown Hospitalery Voltage (volts)2.96 VCleveland ClinicBrady RA Pacing Amplitude (volts)1.5 VCleveland ClinicBrady RA Pacing PolarityBISumma Health Barberton CampusBra RA Pacing Pulse Width (ms)0.4 msCleveland ClinicBrady RA Sensing Amplitude (mvolts)0.3 mVCleveland ClinicBrady RA Sensing Blanking Period (ms)150 msCleveland ClinicBrady RA Sensing PolarityBIDiley Ridge Medical Center RA Sensing Refractory Period (ms)AutoCleveland Olivia Hospital And ClinicsBra RV Pacing Amplitude (volts)2 V [facility] CampusBra RV Pacing PolarityBIDiley Ridge Medical Center RV Pacing Pulse Width (ms)0.4 msCleveland Olivia Hospital And ClinicsBra RV Sensing Amplitude (mvolts)0.9 mV [facility] RV Sensing Blanking Period (ms)200 msCleveland Olivia Hospital And ClinicsBra RV Sensing PolarityThe [facility] SystemHysteresis Rate (bpm)DISABLEDSumma Health Barberton CampusLead1 MfgMDTSumma Health Barberton CampusLead2 [facility] HospitalLocationRV [facility] CampusLocationRASumma Health Barberton CampusLower Rate (bpm)60 {beats}/min [facility] CampusMax Sensor Rate (bmp)130 {beats}/minSumma Health Barberton CampusZtsvbmIohmkM7CZ50 [facility]-Device [facility]-Percent Pacing (A)99.6 %[facility]-Percent Pacing (V)0.24 %[facility]-PMT InterventionENABLEDCmercy health willard hospitaland [facility]-PVC InterventionENABLEDCmercy health willard hospitaland [facility]- Rate Modulation Acceleration Ajqncfnx35 sClSt. John of God Hospital-Rate Modulation ADL Rate (bpm)100 {beats}/minMercy Health St. [facility]-Rate Modulation DecelerationExercise [facility]-Rate Modulation ThresholdMediumMedina HospitalRA Bipolar Impedance vzwg755 [facility] ClinicRA Unipolar Impedance [id number] [facility] Hospitaland ClinicRV Bipolar Impedance hrzm151 ohAllianceHealth Seminole – Seminoleand ClinicRV Unipolar Mqlggkkys287 [facility] ClinicSerial [id number] ClinicSerial Number [id number] ClinicSerial [id number] ClinicThresh RA Capture Amplitude (volts)0.5 VCleveland ClinicThresh RA Capture Duration (ms)0.4 msCleveland ClinicThresh RA Sensing Amplitude (mvolts)2.5 mVCleveland Clinic Thresh RV Capture Amplitude (volts)0.75 VCleveland ClinicThresh RV Capture Duration (ms)0.4 msCleveland ClinicThresh RV Sensing Amplitude (mvolts)12.125 mV [facility] CampusTracking Rate (bpm)130 {beats}/minSumma Health Barberton CampusUS KIDNEYS BLADDERon 29-22-2553ZM KIDNEYS BLADDEREXAMINATION: US KIDNEYS BLADDER HISTORY: Chronic kidney disease due to [...] Electronically authenticated by: EBEN BABCOCK Date: 2022-08-10 19:30[facility] HospitalUA RANDOM W/MICROSCOPICon 73-99-2212QCGCYGXNBJQV SEENNormalNONE SEENBarnesville HospitalComment on above:Performed By: #### UAMIC #### [facility] [address] [place] [address] Dr. Leah Montoya Ql (U)NegativeNormalNEGATIVEBarnesville Hospital Comment on above:Performed By: #### UAMIC #### [facility] [address] [address] [address] Leah FelipeCASTURIAH SEENNormalNONE SEENBarnesville HospitalComment on above:Performed By: #### UAMIC #### [facility] [address] [place] [address] Dr. Leah Chavez (U)CLEARNormalCLEARBarnesville HospitalComment on above: Performed By: #### UAMIC #### [facility] [address] [address] [address] Leah Wilson (U)LT. YELLOWNormalYELLOWBarnesville HospitalComment on above:Performed By: #### UAMIC #### [facility] [address] [address] [address] Leah FelipeCrystals LM Nom (Urine sed)NONE SEENNormalNONE SEENBarnesville HospitalComment on above:Performed By: #### UAMIC #### [facility] [address] [address] [address] Leah Faustinthelial cells LM Ql (Urine sed)FEWAbnormalNONE SEEN /RAREBarnesville HospitalComment on above:Performed By: #### UAMIC #### [facility] [address] [address] [address] Leah FelipeGlucose Ql (U)NegativeNormalNEGATIVEBarnesville HospitalComment on above:Performed By: #### UAMIC #### [facility] [address] [address] [address] Leah FelipeHemoglobin Ql (U)NegativeNormalNEGATIVEMetrohealth Cleveland [facility] Medical Center on above:Performed By: #### UAMIC #### [facility] [address] [place] [address] Dr. Leah FelipeKetones Ql (U)NegativeNormalNEGATIVEBarnesville HospitalComment on above:Performed By: #### UAMIC #### [facility] [address] [address] [address] Leah FelipeLEUKOCYTESNegativeNormalNEGATIVEBarnesville HospitalComment on above:Performed By: #### UAMIC #### [facility] [address] [address] [address] Leah FelipeMUCOUSNONE SEENNormalNONE SEENBarnesville HospitalComment on above:Performed By: #### UAMIC #### [facility] [address] [address] [address] Leah FelipeNitrite Ql (U)NegativeNormalNEGATIVEBarnesville HospitalComment on above:Performed By: #### UAMIC #### [facility] [address] [address] [address] Leah FelipepH (U)6.0 [pH]Normal5-9The [facility] County HospitalComment on above: Performed By: #### UAMIC #### [facility] [address] [place] [address] Dr. Leah WeemsCNONE SEENAbnormal0-2The [facility] HospitalComment on above: Performed By: #### UAMIC #### [facility] [address] [place] [address] Dr. Leah FelipeSPEC GRAVITY1.751Cqeyvk4.005-<=1.025The [facility] HospitalComment on above:Performed By: #### UAMIC #### [facility] [address] [place] [address] Dr. eLah Byrnes PROTEINNegativeNormalNEGATIVE/ TRACEThe [facility] Comment on above:Performed By: #### UAMIC #### [facility] [address] [place] [address] Dr. Leah Hebilinogen Qn (U)0.2 {Lin'U}/dLNormal0.2 - 1.0The [facility] HospitalComment on above:Performed By: #### UAMIC #### [facility] [address] [place] [address] Dr. Leah FelipeWBC0-2AbnormalNONE SEENThe [facility] HospitalComment on above: Performed By: #### UAMIC #### [facility] [address] [place] [address] Dr. Leah Devi T PROTEIN CREAT RATIOon 10-50-6868Hymdjzd (U) [Mass/Vol] 30.2 mg/dLCritically high<=12.0The [facility] HospitalComment on above:Performed By: #### URTPCR #### [facility] [address] [place] [address] Dr. Leah Forbes PROT CREAT RAT0.19NormalThe [facility] HospitalComment on above: Performed By: #### URTPCR #### [facility] [address] [address] [address] Leah Devi XCAHT963.67 mg/bARtfqrz16.00-300.00[facility] Comment on above:Performed By: #### URTPCR #### [facility] [address] [place] [address] Dr. Leah Mcpherson AUTO DIFFon 11-39-5834RXUK #0.0 103/ulNormal0.0-0.1The [facility] HospitalComment on above:Performed By: #### CBC #### [facility] [address] [place] [address] Dr. Leah FelipeBasophils/100 WBC (Bld)0.6 %Normal0.2-2.0The [facility] Comment on above:Performed By: #### CBC #### [facility] [address] [place] [address] Dr. Leah Kidd #0.3 103/ulNormal0.0-0.7The [facility] HospitalComment on above: Performed By: #### CBC #### [facility] [address] [place] [address] Dr. Leah Brambilaosinophils/100 WBC (Bld)5.5 %Normal0.9-7.0[facility] Comment on above:Performed By: #### CBC #### [facility] [address] [place] [address] Dr. Leah Brambilarythrocyte distribution width (RBC) [Ratio]12.5 %Lbxrpk63.0-15.0 The [facility] HospitalComment on above:Performed By: #### CBC #### [facility] [address] [place] [address] Dr. Leah FelipeHematocrit (Bld) [Volume fraction]39.2 %Dsvyvy81.0-48.0The [facility] HospitalComment on above:Performed By: #### CBC #### [facility] [address] [place] [address] Dr. Leah FelipeHemoglobin (Bld) [Mass/Vol]12.5 g/lDXjwjkd21.0-16.0The [facility] HospitalComment on above:Performed By: #### CBC #### [facility] [address] [address] [address] Leah Ramirez #0.01 10e3/ulNormal0.00-0.03The [facility] HospitalComment on above:Performed By: #### CBC #### [facility] [address] [address] [address] Leah Ramirez %0.2 %Normal0.0-0.5The [facility] HospitalComment on above: Performed By: #### CBC #### [facility] [address] [address] [address] Leah Chery #0.8 103/ulCritically low1.2-3.8[facility] Comment on above:Performed By: #### CBC #### [facility] [address] [place] [address] Dr. Leah Brownhocytes/100 WBC (Bld)16.0 %Critically low20.5-60.0The [facility] HospitalComment on above:Performed By: #### CBC #### [facility] [address] [address] [address] Leah GonsalesUAL DIFF REQNONormalThe [facility] HospitalComment on above: Performed By: #### CBC #### [facility] [address] [address] [address] Leah Reed (RBC) [Entitic mass]30.9 edRbkmpn18.7-34.0The [facility] HospitalComment on above:Performed By: #### CBC #### [facility] [address] [place] [address] Dr. Leah Reed (RBC) [Mass/Vol]31.9 g/uSEnusip03.9-35.2The [facility] HospitalComment on above:Performed By: #### CBC #### [facility] [address] [place] [address] Dr. Leah Reed (RBC) [Entitic vol]97.0 lUAcivvh09.0-99.0The [facility] HospitalComment on above:Performed By: #### CBC #### [facility] [address] [place] [address] Dr. Leah Lora #0.4 103/ulNormal0.3-0.8The [facility] HospitalComment on above:Performed By: #### CBC #### [facility] [address] [place] [address] Dr. Leah Kaminskiocytes/100 WBC (Bld)8.7 %Normal1.7-12.0[facility] Comment on above:Performed By: #### CBC #### [facility] [address] [place] [address] Dr. Leah Morel #3.4 103/ulNormal1.4-6.5The [facility] HospitalComment on above:Performed By: #### CBC #### [facility] [address] [place] [address] Dr. Leah Jimutrophils/100 WBC (Bld)69.0 %Ymuqsl03.0-75.0The [facility] HospitalComment on above:Performed By: #### CBC #### [facility] [address] [place] [address] Dr. Leah Acosta mean volume (Bld) [Entitic vol]9.1 fLCritically low 9.5-13.5The [facility] HospitalComment on above:Performed By: #### CBC #### [facility] [address] [place] [address] Dr. Leah FelipePLT196 103/rsZxxgsm992-315Sni [facility] HospitalComment on above: Performed By: #### CBC #### [facility] [address] [place] [address] Dr. Leah FelipeRBC4.04 106/ulCritically low4.20-5.40The [facility] HospitalComment on above:Performed By: #### CBC #### [facility] [address] [place] [address] Dr. Leah FelipeWBC5.0 103/ulNormal4.0-11.0The [facility] HospitalComment on above: Performed By: #### CBC #### [facility] [address] [address] [address] Leah OsorioF CHEM 8 (BAS METB)on 45-45-4960Hnnwa gap [Moles/Vol]9.8 mmol/LNormalThe [facility] HospitalComment on above:Performed By: #### BMP, TSH #### [facility] [address] [place] [address] Dr. Leah FelipeCalcium [Mass/Vol]8.2 mg/dLCritically low8.5-10.1The [facility] HospitalComment on above:Performed By: #### BMP, TSH #### [facility] [address] [place] [address] Dr. Leah FelipeChloride [Moles/Vol]107 mmol/FFzdhtd24-426Jum [facility] Comment on above:Performed By: #### BMP, TSH #### [facility] [address] [place] [address] Dr. Leah FelipeCO2 [Moles/Vol]26.4 mmol/RCkssfr32.0-32.0[facility] Comment on above:Performed By: #### BMP, TSH #### [facility] [address] [place] [address] Dr. Leah FelipeCreatinine [Mass/Vol]1.53 mg/dLCritically high0.55-1.02The [facility] HospitalComment on above:Performed By: #### BMP, TSH #### [facility] [address] [place] [address] Dr. Leah BrambilaGFR-AF NCCMFGHJ77 mL/min/1.79r0Ywuvwexdch low>=60The [facility] HospitalComment on above:Performed By: #### BMP, TSH #### [facility] [address] [place] [address] Dr. Leah BrambilaGFR-NON AF GTRIINAB49 mL/min/1.86f6Willpzxxix low>=60The [facility] HospitalComment on above:Performed By: #### BMP, TSH #### [facility] [address] [address] [address] Leah FelipeGlucose [Mass/Vol]108 mg/dLCritically kyzr15-300Nwh [facility] HospitalComment on above:Performed By: #### BMP, TSH #### [facility] [address] [place] [address] Dr. Leah FelipePotassium [Moles/Vol]4.2 mmol/LNormal3.5-5.1[facility] Comment on above:Performed By: #### BMP, TSH #### [facility] [address] [place] [address] Dr. Leah FelipeSodium [Moles/Vol]139 mmol/XUtsdai288-841Dio [facility] Comment on above:Performed By: #### BMP, TSH #### [facility] [address] [place] [address] Dr. Leah FelipeUrea nitrogen [Mass/Vol]26.0 mg/dLCritically high7.0-18.0The [facility] HospitalComment on above:Performed By: #### BMP, TSH #### [facility] [address] [place] [address] Dr. Leah Muñoz nitrogen/Creatinine [Mass ratio]17.0 mg/mgNormalThe [facility] HospitalComment on above:Performed By: #### BMP, TSH #### [facility] [address] [place] [address] Dr. Leah FelipeTSHofrankie 23-09-9232WKG5.650 uIU/mLNormal0.358-3.740The [facility] HospitalComment on above:Performed By: #### BMP, TSH #### [facility] [address] [place] [address] Dr. Leah FelipeVITAMIN B12on 82-93-8161Fikfqfluc (Vitamin B12) [Mass/Vol]378.0 pg/fGFhzujp034.0-986.0The [facility] HospitalComment on above:Performed By: #### VITB12 #### [facility] [address] [place] [address] Dr. Leah FelipeMG MAMM SCREEN 3D FAVIOLA CADon 72-27-3719AD MAMM SCREEN 3D FAVIOLA CAD Patient: CASSI RODRIGEZ Exam Date: 07/29/2022 : 1950 Gender:F Ordering : DR BRODERICK HOWARD D.O. Admission #: [id number] Family : Order #: [id number] CLICK HERE TO VIEW EXAM RADIOLOGY REPORT [...] pancreatic cancer at age 64. LOCATION: [facility] BREAST COMPOSITION: Heterogeneously dense,which may [...] by: Eben Babcock MD on 07/29/2022 at 11:19[facility] HospitalCBC panel Auto (Bld)on 80-03-0546Eutilggvhac distribution width (RBC) [Ratio]12.5 % Kabudi74.5-15.0Av HospitalComment on above:Order Comment: Specimen Type: BLOOD SPECIMEN Ordering Facility: [facility] Address: [address] [place] [id number] By: #### 02741-9 #### [facility] CLIA [id number] [facility] [place] [address] [place] OF AMERICAHematocrit (Bld) [Volume fraction]39.3 % Kgfzhs08.0-46.0Av HospitalComment on above:Order Comment: Specimen Type: BLOOD SPECIMEN Ordering Facility: [facility] Address: [address] [place], [place] [address]Performed By: #### 73003-6 #### [facility] [place] [id number] [address] [place], [place] [id number] [place], [place] [address]Hemoglobin (Bld) [Mass/Vol]12.5 g/dL Tmfvqf31.5-15.5Avon HospitalComment on above:Order Comment: Specimen Type: BLOOD SPECIMEN Ordering Facility: [facility] Address: [address] [place], [place] [address]Performed By: #### 22930-2 #### [facility] [place] [id number] [address] [place], [place] [address]H (RBC) [Entitic mass]31.3 pgNormal 26.0-34.0Av HospitalComment on above:Order Comment: Specimen Type: BLOOD SPECIMEN Ordering Facility: [facility] Address: [address] [place], [place] [address]Performed By: #### 72447-3 #### [facility] [place] [id number] [place] [id number] [place], [place] [address]MCHC (RBC) [Mass/Vol]31.8 g/dLNormal 30.5-36.0Avon HospitalComment on above:Order Comment: Specimen Type: BLOOD SPECIMEN Ordering Facility: [facility] Address: [address] [place], [place] [address]Performed By: #### 73498-5 #### [facility] [place] [id number] [address] [place] [address] [facility]ITALV (RBC) [Entitic vol]98.5 fLNormal 80.0-100.0Av HospitalComment on above:Order Comment: Specimen Type: BLOOD SPECIMEN Ordering Facility: [facility] Address: [address] [place], [place] [address]Performed By: #### 00395-4 #### [facility] [place] [id number] [place] [address]. [place] [address] [place] AMERICANucleated RBC (Bld) [#/Vol]10*3/uLNormal <0.01Avon HospitalComment on above:Order Comment: Specimen Type: BLOOD SPECIMEN Ordering Facility: [facility] Address: [address] [place], [place] [address]Performed By: #### 64564-4 #### [facility] [place] [id number] [address] [place] [address] [place] AMERICAPlatelet mean volume (Bld) [Entitic vol] 9.5 fLNormal9.0-12.7Avon HospitalComment on above:Order Comment: Specimen Type: BLOOD SPECIMEN Ordering Facility: [facility] Address: [address] [place], [place] [address]Performed By: #### 16606-8 #### [facility] [place] [id number] [address] [place] [address] [place] AMERICAPlatelets (Bld) [#/Vol]214 10*3/uLNormal 150-400Av HospitalComment on above:Order Comment: Specimen Type: BLOOD SPECIMEN Ordering Facility: [facility] Address: [address] [place], [place] [address]Performed By: #### 20915-8 #### [facility] [place] [id number] [facility] [place] [address] [place] AMERICARBC (Bld) [#/Vol]3.99 10*6/uLNormal 3.90-5.20Av HospitalComment on above:Order Comment: Specimen Type: BLOOD SPECIMEN Ordering Facility: [facility] Address: [address] [place], [place] [address]Performed By: #### 75091-1 #### [facility] [place] [id number] [facility] [place] [address] [place] AMERICAWBC (Bld) [#/Vol]5.85 10*3/uLNormal 3.70-11.00Av HospitalComment on above:Order Comment: Specimen Type: BLOOD SPECIMEN Ordering Facility: [facility] Address: [address] [place] [address]Jmeyhnoti By: #### 64880-6 #### [facility] CLIA [id number] [facility] [place] [address] [place] [facility] MEDICAL CENTERErythrocyte distribution width (RBC) [Ratio]12.5 %11.5 - 15.0 %[facility] CampusHematocrit (Bld) [Volume fraction]39.3 %36.0 - 46.0 %[facility] CampusHemoglobin (Bld) [Mass/Vol]12.5 g/dL11.5 - 15.5 g/dLChildren's Hospital of ColumbusH (RBC) [Entitic mass]31.3 pg26.0 - 34.0 pgClevelSt. Francis Medical CenterHC (RBC) [Mass/Vol]31.8 g/dL30.5 - 36.0 g/dLChildren's Hospital of ColumbusV (RBC) [Entitic vol]98.5 fL80.0 - 100.0 fLCleveland ClinicNucleated RBC (Bld) [#/Vol] <0.01 k/uLSumma Health Barberton CampusPlatelet mean volume (Bld) [Entitic vol]9.5 fL9.0 - 12.7 fLCleveland ClinicPlatelets (Bld) [#/Vol]214 10*3/uL150 - 400 k/[facility]uder HospitalRBC (Bld) [#/Vol]3.99 10*6/uL3.90 - 5.20 m/[facility]ruder HospitalWBC (Bld) [#/Vol]5.85 10*3/uL3.70 - 11.00 k/[facility] BLDon 91-12-3215FNB Qn 1.890 m[IU]/L0.270 - 4.200 mIU/LCSelect Medical Specialty Hospital - Columbus SerPl-aCncon 85-86-0317WNL Qn1.890 m[IU]/LNormal0.270-4.200Fill[facility] Community Medical CenterComment on above:Order Comment: Specimen Type: BLOOD SPECIMEN Ordering Facility[facility] Address: [address] [place] [address]Jalqkqrya By: #### 3016-3 #### [facility] CLIA [id number] [facility] [place] [place] [address] [place] Vital Signs Date TimeVital SignValuePerforming ZmehpztzgTklomkav80-99-9616 09:49-0400Body .48 cmBenjamin Ball DO Work Phone: [phone]10-14-2025 09:49-0400 Body mass index (BMI) [Ratio]33.5 kg/o3Cxlnacfi Ball DO Work Phone: [phone] [place], [place] 40[address]210-14-2025 09:49-0400 Body hxeipx66 kgBenjamin Ball DO Work Phone: [phone] [place], [place] 4022210-14-2025 09:49-0400 Diastolic blood grkkuyua77 mm[Hg]Broderick Ball DO Work Phone: [phone] [place], [place] 40[address]210-14-2025 09:49-0400 Heart rate67 /minBenjamin Ball DO Work Phone: [phone] [place], [place] 4022210-14-2025 09:49-0400 Systolic blood ddydnvqk174 mm[Hg]Broderick Ball DO Work Phone: [phone])[address] [place], [place] 40[address]210-01-2025 09:41-0400 Body qdqxyp998.48 cmBenjamin Ball DO Work Phone: [phone] [place], [place] 40[address]210-01-2025 09:41-0400 Body mass index (BMI) [Ratio]33.5 kg/y0Xigwtgwn Ball DO Work Phone: [phone])[address] [place], [place] 40[address]210-01-2025 09:41-0400 Body hoxgwaitchc44.5 [degF]Broderick Ball DO Work Phone: [phone])[address] [place], [place] 40[address]210-01-2025 09:41-0400 Body ebmhgs49.23 kgBenjamin Ball DO Work Phone: [phone] [place], [place] 40[address]210-01-2025 09:41-0400 Diastolic blood hojrvrtq75 mm[Hg]Broderick Ball DO Work Phone: [facility]10-01-2025 09:41-0400 Heart rate75 /minBenjamin Ball DO Work Phone: [phone]10-01-2025 09:41-0400 Respiratory rate18 /minBenjamin Ball DO Work Phone: [phone] [place], [place] 1632810-01-2025 09:41-0400 SaO2% (BldA) [Mass fraction]98 %Broderick Ball DO Work Phone: [phone]10-01-2025 09:41-0400 Systolic blood izlwdwvu338 mm[Hg]Broderick Ball DO Work Phone: [phone]80[facility]09-17-2025 07:23-0400 Body ijiajd110.48 cmBenjamin Ball DO Work Phone: [phone]09-17-2025 07:23-0400 Body txexmv24.18 kgBenjamin Ball DO Work Phone: [phone]09-03-2025 09:45-0400 Body accqtl764.5 Keanu Reilly MD Work Phone: [phone]09-03-2025 09:45-0400Body mass index (BMI) [Ratio]35.12 kg/l2UtnqgRanda Reilly MD Work Phone: [phone]09-03-2025 09:45-0400Body vesynf59.1 kgRanda Reilly MD Work Phone: [phone]09-03-2025 09:45-0400Diastolic blood pekecfqb59 mm[Hg]Randa Reilly MD Work Phone: [phone]09-03-2025 09:45-0400Heart rate82 /min Randa Reilly MD Work Phone: [phone]09-03-2025 09:45-0400Systolic blood dunhwpja248 mm[Hg]Randa Reilly MD Work Phone: [facility]08-18-2025 14:58-0400Body kniazn688.48 cmBenjamin Ball DO Work Phone: [facility]08-18-2025 14:58-0400 Body mass index (BMI) [Ratio]34.7 kg/f4Ttrtubyi Ball DO Work Phone: [facility]08-18-2025 14:58-0400 Body fvmrre54.18 kgBenjamin Ball DO Work Phone: [facility]08-18-2025 14:58-0400 Diastolic blood lnxvgtog40 mm[Hg]Broderick Ball DO Work Phone: [facility]08-18-2025 14:58-0400 Heart rate82 /minBenjamin Ball DO Work Phone: [facility]08-18-2025 14:58-0400 Respiratory rate12 /minBenjamin Ball DO Work Phone: [facility]08-18-2025 14:58-0400 Systolic blood xattuani510 mm[Hg]Broderick Ball DO Work Phone: [facility]07-07-2025 08:03-0400 Body mass index (BMI) [Ratio]35.19 kg/a1Oeguoazv Doher DO Work Phone: [facility]07-07-2025 08:03-0400Body .27 kgNicholas Doher DO Work Phone: [facility]07-07-2025 08:03-0400Diastolic blood mm[Hg]Elian Doher DO Work Phone: [facility]07-07-2025 08:03-0400Systolic blood flzmgury534 mm[Hg]Elian Doher DO Work Phone: [facility]05-27-2025 11:10-0400Body vsxept012.5 Keanu Reilly MD Work Phone: [facility]05-27-2025 11:10-0400Body mass index (BMI) [Ratio]34.52 kg/t4IcldrRanda Reilly MD Work Phone: [phone]05-27-2025 11:10-0400Body xghadx10.6 kgRanda Reilly MD Work Phone: [phone]05-27-2025 11:10-0400Diastolic blood yscrkmpg68 mm[Hg]Randa Reilly MD Work Phone: [phone]05-27-2025 11:10-0400Heart rate86 /min Randa Reilly MD Work Phone: [phone] [facility]05-27-2025 11:10-0400Systolic blood exvjsvni497 mm[Hg]Randa Reilly MD Work Phone: [phone]04-10-2025 10:40-0400Body cwhiak598.48 cmBenjamin Ball DO Work Phone: [facility]04-10-2025 10:40-0400 Body mass index (BMI) [Ratio]36.1 kg/r7Antsolfc Ball DO Work Phone: [facility]04-10-2025 10:40-0400 Body xtzhyidczkl65.9 [degF]Broderick Ball DO Work Phone: [facility]04-10-2025 10:40-0400 Body ramkko90.58 kgBenjamin Ball DO Work Phone: [facility]04-10-2025 10:40-0400 Diastolic blood losbyfhe24 mm[Hg]Broderick Ball DO Work Phone: [facility]04-10-2025 10:40-0400 Heart rate76 /minBenjamin Ball DO Work Phone: [facility]04-10-2025 10:40-0400 Respiratory rate16 /minBenjamin Ball DO Work Phone: [phone]04-10-2025 10:40-0400 SaO2% (BldA) [Mass fraction]98 %Broderick Ball DO Work Phone: [phone]04-10-2025 10:40-0400 Systolic blood suvtboxk658 mm[Hg]Broderick Ball DO Work Phone: 1(884)[address] [place], [place] 4022204-09-2025 13:53-0400 Body gmybpa516.48 cmBenjamin Ball DO Work Phone: 1(846)[address] [place], [place] 4022204-09-2025 13:53-0400 Body mass index (BMI) [Ratio]34.5 kg/h9Oqqfqftt Ball DO Work Phone: 1(820)[address] [place], [place] 4022204-09-2025 13:53-0400 Body ymljrp51.72 kgBenjamin Ball DO Work Phone: 1(736)[address] [place], [place] 4022204-09-2025 13:53-0400 Diastolic blood krcibuzl45 mm[Hg]Broderick Ball DO Work Phone: 1(129)[facility] [place], [place] 1632804-09-2025 13:53-0400 Heart rate75 /minBenjamin Ball DO Work Phone: 1(564)[address] [place], [place] 4022204-09-2025 13:53-0400 SaO2% (BldA) [Mass fraction]100 %Broderick Ball DO Work Phone: 1(089)[facility] [place], [place] 1632804-09-2025 13:53-0400 Systolic blood mm[Hg]Broderick Ball DO Work Phone: 1(218)[facility] [place], [place] 1632802-21-2025 11:51-0500 Body uestjx511.5 Jace Mayfield APRN.NIC Work Phone: [facility]Cwwgtw03-21-2778 11:51-0500Body mass index (BMI) [Ratio]34.96 kg/n5KwhgfiSvitlana Mayfield APRN.CNP Work Phone: [place] Jxfehr97-62-1657 11:51-0500Body .7 kgLakirk Moyajerrell REGULATORY SUBMISSIONS ASSOCIATE.[employer]OLLER Work Phone: [facility] Chgjdp24-47-2278 11:51-0500Diastolic blood tadzitgz32 mm[Hg]Svitlana Moyajerrell REGULATORY SUBMISSIONS ASSOCIATE.[employer] TRAFFIC CONTROLLER Work Phone: [facility]and Ejakdk59-46-7471 11:51-0500Heart rate86 /min Svitlana Moyajerrell REGULATORY SUBMISSIONS ASSOCIATE.[employer] TRAFFIC CONTROLLER Work Phone: X[facility]and Giynwd61-10-8456 11:51-0500Systolic blood fesfknke021 mm[Hg]Svitlanamarj Moyajerrell REGULATORY SUBMISSIONS ASSOCIATE.[employer] TRAFFIC CONTROLLER Work Phone: [facility]and Ndskld70-37-9449 13:55-0500Body zzudbx228.5 cmAalbertina Villar MD, PhD Work Phone: [phone] [facility] / Crille HospitalFalass70-34-5815 13:55-0500Body mass index (BMI) [Ratio]35.08 kg/h3MxehimAlejandro Villar MD, PhD Work Phone: DBrec[facility] HospitalWfrjwg08-28-4493 13:55-0500Body txavzi92 kg Alejandro Villar MD, PhD Work Phone: [phone] [facility] / Crille HospitalAxrjow82-12-4919 13:55-0500Diastolic blood guravion70 mm[Hg]Alejandro Villar MD, PhD Work Phone: FBrecksville [facility]ille HospitalGoakkq68-64-5128 13:55-0500Heart rate86 /min Alejandro Villar MD, PhD Work Phone: ZBrecksville [facility] / Crille HospitalVgocic53-84-4419 13:55-0500Systolic blood bcdkicxa971 mm[Hg]Alejandro Villar MD, PhD Work Phone: KBrecksville [facility] / Crille HospitalHtodwm00-58-4368 10:08-0500Body ocqvno357.48 cmBenjamin Ball DO Work Phone: [facility]01-24-2025 10:08-0500 Body mass index (BMI) [Ratio]33.1 kg/f3Vchsasvw Ball DO Work Phone: [facility]01-24-2025 10:08-0500 Body eqcnop23.15 kgBenjamin Ball DO Work Phone: 1(850)938-[address] [place], [place] 1632801-24-2025 10:08-0500 Diastolic blood zpwiyxje03 mm[Hg]Broderick Ball DO Work Phone: 1(894)493-[address] [place], [place] 1632801-24-2025 10:08-0500 Heart rate73 /minBenjamin Ball DO Work Phone: 1(721)[facility] [place], [place] 1632801-24-2025 10:08-0500 Respiratory rate12 /minBenjamin Ball DO Work Phone: 1(119)[address] [place], [place] 4022201-24-2025 10:08-0500 Systolic blood bszvfgdi761 mm[Hg]Broderick Ball DO Work Phone: 1(527)[address] [place], [place] 4022201-15-2025 13:43-0500 Body .5 cmFredric Itzkowitz DO Work Phone: 1(182)[facility] [place], [place] [address]Gjlkxmizvw36-60-3223 13:43-0500Body mass index (BMI) [Ratio]35.3 kg/k9Ugmysog Itzkowitz DO Work Phone: 1(035)[facility]96[facility] CenterJetwancjta36-72-5364 13:43-0500Body vnofxa81.54 kgFredric Itzkowitz DO Work Phone: 1(310)[facility]84[facility] CenterUjctmawgou22-41-7436 13:43-0500Diastolic blood hophjaam80 mm[Hg]Aftab Itzkowitz DO Work Phone: 1(196)[facility] [place], [place] [address]Vicjyurxdh98-39-2522 13:43-0500Systolic blood qsjrrypd404 mm[Hg]Aftab Itzkowitz DO Work Phone: 1(247)[facility]69[facility] CenterZndfypzsbt74-23-0535 11:04-0500Body wwhrex946.48 cmBenjamin Ball DO Work Phone: 1(031)915-[address] [place], [place] 1632801-14-2025 11:04-0500 Body mass index (BMI) [Ratio]34.2 kg/q1Bdhgowcc Ball DO Work Phone: 1(419)[address] [place], [place] 4022201-14-2025 11:04-0500 Body dlkcif69.93 kgBenjamin Ball DO Work Phone: 1419)[address] [place], [place] 4022201-14-2025 11:04-0500 Diastolic blood hhtaecdl21 mm[Hg]Broderick Ball DO Work Phone: 1419)[address] [place], [place] 4022201-14-2025 11:04-0500 Heart rate83 /minBenjamin Ball DO Work Phone: 1(419)[address] [place], [place] 4022201-14-2025 11:04-0500 Respiratory rate12 /minBenjamin Ball DO Work Phone: 1419)[address] [place], [place] 4022201-14-2025 11:04-0500 Systolic blood mm[Hg]Broderick Ball DO Work Phone: 1419)[address] [place], [place] 4022201-10-2025 16:28-0500 Diastolic blood hgnojhiv98 mm[Hg]Broderick Ball DO Work Phone: 1(503)[address] [place], [place] 4022201-10-2025 16:28-0500 Heart rate60 /minBenjamin Ball DO Work Phone: 1(500)[address] [place], [place] 4022201-10-2025 16:28-0500 Respiratory rate18 /minBenjamin Ball DO Work Phone: 1(730)[address] [place], [place] 4022201-10-2025 16:28-0500 SaO2% (BldA) [Mass fraction]99 %Broderick Ball DO Work Phone: 1(419)[address] [place], [place] 4022201-10-2025 16:28-0500 Systolic blood iwwrqnkb552 mm[Hg]Broderick Ball DO Work Phone: 1419)[address] [place], [place] 4022201-10-2025 13:52-0500 Body .48 cmBenjamin Ball DO Work Phone: 1419)[address] [place], [place] 4022201-10-2025 13:52-0500 Body ufhrgddblwj39.6 [degF]Broderick Ball DO Work Phone: [facility]01-10-2025 13:52-0500 Body pkarkg25 kgBenjamin Ball DO Work Phone: [facility]01-10-2025 11:16-0500 Body xylzim681.48 cmProm[facility]ica [facility]01-10-2025 11:16-0500Body mass index (BMI) [Ratio]34.2 kg/a3GukawpwgoPromedica Toledo Hospital01-10-2025 11:16-0500Body npisst46.82 kgPromedica [facility] Hospital01-10-2025 11:16-0500Diastolic blood hkdkjtki88 mm[Hg][facility] 11-24-2024 11:16-0500Heart rate82 /[facility] 11-24-2024 11:16-0500Respiratory rate12 /[facility] 11-24-2024 11:16-0500Systolic blood xoxlypvf956 mm[Hg][facility]01-03-2025 13:45-0500Body jdwyqa429.48 cmPromedica [facility]01-03-2025 13:45-0500Body mass index (BMI) [Ratio]34.4 kg/m3HotoisqtwPromedica [facility]edo Hospital01-03-2025 13:45-0500Body emuhph27.5 [facility]01-03-2025 13:45-0500Diastolic blood mm[Hg][facility]01-03-2025 13:45-0500Heart rate68 /[facility]01-03-2025 13:45-0500Respiratory rate12 /[facility]01-03-2025 13:45-0500Systolic blood qdqvohkw706 mm[Hg][facility]12-20-2024 15:00-0500Hourly RoundingShashi [facility]iew [facility]12-20-2024 15:00-0500 Promise to ReturnRichard Rhiew [facility]12-20-2024 14:00-0500 Hourly RoundingRichard Rhiew [facility]12-20-2024 14:00-0500 Promise to ReturnRichard Rhiew [facility]12-20-2024 13:30-0500 Hourly RoundingRichard Rhiew [facility]12-20-2024 13:00-0500 Promise to ReturnRichard Rhiew [address] [place], [place] 1207512-20-2024 11:27-0500Heart rate58 /minRichard Rhiew [facility]12-20-2024 11:27-9139AaP7% (BldA) [Mass fraction]95 %Shashi Rhiew [facility]12-20-2024 11:27-0500 Respiratory rate16 /minRichard Rhiew [facility]12-20-2024 11:27-0500 Diastolic blood ikbotwhx23 mm[Hg]Shashi [facility]iew [facility]12-20-2024 11:27-0500Mean blood hojqkccu53 mm[Hg]Shashi [facility]iew [facility]12-20-2024 11:27-0500 Systolic blood mm[Hg]Shashi Rhiew [facility]12-20-2024 11:27-0500Body hernczfqgmw17.52 [degF]Shashi [facility]iew [facility]12-20-2024 07:43-0500Heart rate60 /minRichard Rhiew [facility]12-20-2024 07:43-4159KkL6% (BldA) [Mass fraction]96 %Shashi [facility]iew [facility]12-20-2024 07:43-0500 Respiratory rate16 /minRichard Rhiew [facility]12-20-2024 07:42-0500Body irqdqcblgxh79.52 [degF]Shashi Rhiew [facility]12-20-2024 07:42-0500 Diastolic blood vsxenqus16 mm[Hg]Shashi [facility]iew [facility]12-20-2024 07:42-0500Mean blood auklelvv52 mm[Hg]Shashi Rhiew [facility]12-20-2024 07:42-0500 Systolic blood ltkzonzt785 mm[Hg]Shashi Brionesiew [facility]12-20-2024 04:31-0500Heart rate59 /minRichjeffrey Brionesiew [facility]12-20-2024 04:31-7590PnH3% (BldA) [Mass fraction]96 %Shashi Rhiew [facility]12-20-2024 04:31-0500 Respiratory rate17 /minKalebard Rhiew [facility]12-20-2024 04:30-0500Blood Pressure LocationRichard Rhiew [facility]12-20-2024 04:30-0500 Diastolic blood oqbnkqdg60 mm[Hg]Shashi Rhiew [facility]12-20-2024 04:30-0500Mean blood sqxckuez73 mm[Hg]Shashi Rhiew [facility]12-20-2024 04:30-0500 Systolic blood xecgxxal068 mm[Hg]Shashi Rhiew [facility]12-20-2024 00:58-0500Body kyigccbwfiq23.52 [degF]Shashi Rhiew [facility]12-19-2024 16:45-0500 Respiratory rate9 /minRichard Rhiew [facility]12-19-2024 16:20-0500Blood Pressure LocationRichard Rhiew [facility]12-19-2024 16:20-0500Mean blood qbfbcqne89 mm[Hg]Shashi Rhiew [facility]12-19-2024 16:20-0500 Respiratory rate11 /minRichard Rhiew [facility]12-19-2024 16:05-0500Blood Pressure LocationRichard Rhiew [facility]12-19-2024 16:05-0500Mean blood eytctfug73 mm[Hg]Shashi Rhiew [facility]12-19-2024 16:05-0500 Respiratory rate13 /minRichard Rhiew [facility]12-13-2024 09:00-0500Body .48 cm[facility]12-13-2024 09:00-0500Body mass index (BMI) [Ratio]35.2 kg/d3KtiduwxwlPromedica [facility]edo Hospital12-13-2024 09:00-0500Body .31 kgPromedica [facility] Hospital12-13-2024 09:00-0500Diastolic blood dzacienp28 mm[Hg][facility] 10-27-2024 09:00-0500Heart rate69 [facility] 10-27-2024 09:00-0500Respiratory rate12 /[facility] 10-27-2024 09:00-0500Systolic blood mm[Hg][facility]10-24-2024 08:48-0400Body nltvun381.48 cmDO Broderick Ball Work Phone: 1(000)[address] [place], [place] 4022210-24-2024 08:48-0400 Body mass index (BMI) [Ratio]35.8 kg/m2DO Broderick Ball Work Phone: 1(222)[address] [place], [place] 4022210-24-2024 08:48-0400 Body .6 [degF]DO Broderick Ball Work Phone: 1(730)[address] [place], [place] 4022210-24-2024 08:48-0400 Body zmvruv10.9 kgDO Broderick Ball Work Phone: 1(152)[address] [place], [place] 4022210-24-2024 08:48-0400 Diastolic blood mhfxsyrn63 mm[Hg]DO Broderick Ball Work Phone: 1(769)[address] [place], [place] 4022210-24-2024 08:48-0400 Heart rate75 /minDO Broderick Ball Work Phone: 1(767)[address] [place], [place] 4022210-24-2024 08:48-0400 Respiratory rate16 /minDO Broderick Ball Work Phone: 1(347)[address] [place], [place] 4022210-24-2024 08:48-0400 SaO2% (BldA) [Mass fraction]98 %DO Broderick Ball Work Phone: 1(276)[address] [place], [place] 4022210-24-2024 08:48-0400 Systolic blood upzvekjj607 mm[Hg]DO Broderick Ball Work Phone: 1(591)[address] [place], [place] 4022210-22-2024 13:06-0400 Body agygtn432.5 Keanu Reilly MD Work Phone: [facility]10-22-2024 13:06-0400Body mass index (BMI) [Ratio]35.93 kg/o9HvqozRanda Reilly MD Work Phone: [facility]10-22-2024 13:06-0400Body .1 kgRanda Reilly MD Work Phone: [facility]10-22-2024 13:06-0400Diastolic blood mm[Hg]Randa Reilly MD Work Phone: [facility]10-22-2024 13:06-0400Heart rate84 /min Randa Reilly MD Work Phone: [facility]10-22-2024 13:06-0400Systolic blood phawjuhi164 mm[Hg]Randa Reilly MD Work Phone: [facility]10-17-2024 09:54-0400Body .5 Kusum Millard MD Work Phone: [facility]10-17-2024 09:54-0400Body mass index (BMI) [Ratio]35.48 kg/o2ZrehfwouuKitty Millard MD Work Phone: [facility]10-17-2024 09:54-0400Body muzlhg58 kg Kitty Millard MD Work Phone: [facility]10-17-2024 09:54-0400Diastolic blood ulkafwnc20 mm[Hg]Kitty Millard MD Work Phone: [facility]10-17-2024 09:54-0400Heart rate81 /min Kitty Millard MD Work Phone: [facility]10-17-2024 09:54-0400Systolic blood pierxnmn137 mm[Hg]Kitty Millard MD Work Phone: [facility]10-16-2024 15:27-0400Body lqymtw965.48 cmDO Broderick Lee Work Phone: [facility]10-16-2024 15:27-0400 Body mass index (BMI) [Ratio]35.5 kg/m2DO Broderick Ball Work Phone: [facility]10-16-2024 15:27-0400 Body tipzqq94.22 kgDO Broderick Ball Work Phone: [facility]10-16-2024 15:27-0400 Diastolic blood cvjzlbre76 mm[Hg]DO Broderick Ball Work Phone: 1(184)287-[address] [place], [place] 1632810-16-2024 15:27-0400 Heart rate83 /minDO Broderick Ball Work Phone: 1419)285-[address] [place], [place] 1632810-16-2024 15:27-0400 Respiratory rate12 /minDO Broderick Ball Work Phone: 1(293)[facility] [place], [place] 1632810-16-2024 15:27-0400 Systolic blood jsarifln839 mm[Hg]DO Broderick Ball Work Phone: 1419)[address] [place], [place] 4022210-15-2024 10:50-0400 Body kenjcw447.48 cmDO Broderick Ball Work Phone: 1(603)[address] [place], [place] 4022210-15-2024 10:50-0400 Body mass index (BMI) [Ratio]35.1 kg/m2DO Broderick Ball Work Phone: 1(688)[address] [place], [place] 4022210-15-2024 10:50-0400 Body sepepn83.08 kgDO Broderick Ball Work Phone: 1(944)[address] [place], [place] 4022210-15-2024 10:50-0400 Diastolic blood pxzysyqp75 mm[Hg]DO Broderick Ball Work Phone: 1(166)[address] [place], [place] 4022210-15-2024 10:50-0400 Heart rate76 /minDO Broderick Ball Work Phone: 1(385)[address] [place], [place] 4022210-15-2024 10:50-0400 Systolic blood zomgjaze505 mm[Hg]DO Broderick Ball Work Phone: 1(605)[address] [place], [place] 4022208-15-2024 13:05-0400 Body .5 cmAalbertina Villar MD, PhD Work Phone: cBrec[facility] HospitalUqckrz31-85-7564 13:05-0400Body mass index (BMI) [Ratio]34.44 kg/k0FkoiaqAlejandro Villar MD, PhD Work Phone: cBrecksville [facility] HospitalEhvfwj08-44-3027 13:05-0400Body .4 kgAlejandro Villar MD, PhD Work Phone: c[facility] hospitaland Tpjcez63-74-4591 13:05-0400Diastolic blood cpkbbret84 mm[Hg]Alejandro Villar MD, PhD Work Phone: c[facility]and Foskwa98-59-2892 13:05-0400Heart rate85 /min Alejandro Villar MD, PhD Work Phone: [phone] hospitaland Dfbfsi94-75-7290 13:05-0400Systolic blood jlvfmxun056 mm[Hg]Alejandro Villar MD, PhD Work Phone: cBrec[facility]ville [facility] HospitalQdlume39-75-4705 14:01-0400Body vavtqa310.48 cmDO Broderick Ball Work Phone: 1(637)[address]08-13-2024 14:01-0400 Body mass index (BMI) [Ratio]34.2 kg/m2DO Broderick Ball Work Phone: 1(566)[address]08-13-2024 14:01-0400 Body vlcuce18.82 kgDO Broderick Ball Work Phone: 1(164)[address]08-13-2024 14:01-0400 Diastolic blood mm[Hg]DO Broderick Ball Work Phone: 1(034)347-[address] [place], [place] 1632808-13-2024 14:01-0400 Heart rate68 /minDO Broderick Ball Work Phone: 1(033)182-[address] [place], [place] 1632808-13-2024 14:01-0400 Respiratory rate12 /minDO Broderick Ball Work Phone: 1(907)058-[address] [place], [place] 1632808-13-2024 14:01-0400 Systolic blood hhwnuyyh503 mm[Hg]DO Broderick Ball Work Phone: 1(870)431-[address] [place], [place] 1632807-25-2024 14:26-0400 Body ecowvo060.48 cmDO Broderick Ball Work Phone: 1(500)[phone]07-25-2024 14:26-0400 Body mass index (BMI) [Ratio]34 kg/m2DO Broderick Ball Work Phone: 1(593)299-04[facility]07-25-2024 14:26-0400 Body sorkmywlqfe16.6 [degF]DO Broderick Ball Work Phone: 1(988)[address] [place], [place] 4022207-25-2024 14:26-0400 Body bfnimn13.36 kgDO Broderick Ball Work Phone: 1(361)[address]07-25-2024 14:26-0400 Diastolic blood njexvdwu17 mm[Hg]DO Broderick Ball Work Phone: 1(133)[address]07-25-2024 14:26-0400 Heart rate73 /minDO Broderick Ball Work Phone: 1(518)[address]07-25-2024 14:26-0400 Respiratory rate16 /minDO Broderick Ball Work Phone: 1(725)[address] [place], [place] 4022207-25-2024 14:26-0400 SaO2% (BldA) [Mass fraction]99 %DO Broderick Ball Work Phone: 1(924)[address] [place], [place] 4022207-25-2024 14:26-0400 Systolic blood yvxfvytf929 mm[Hg]DO Broderick Ball Work Phone: 1(453)[address] [place], [place] 4022207-16-2024 07:27-0400 Body bizeid158.48 cmDO Broderick Ball Work Phone: 1(213)[address] [place], [place] 4022207-16-2024 07:27-0400 Body .18 kgDO Broderick Ball Work Phone: 1(000)[address]07-09-2024 11:23-0400 Body .5 Keanu Reilly MD Work Phone: [facility]07-09-2024 11:23-040Body mass index (BMI) [Ratio]34.55 kg/j4SvxywRanda Reilly MD Work Phone: [facility]07-09-2024 11:040Body aigjlq44.68 kgRanda Reilly MD Work Phone: [facility]07-09-2024 11:23-0400Diastolic blood eoflirsk06 mm[Hg]Randa Reilly MD Work Phone: [facility]07-09-2024 11:230400Heart rate85 /min Randa Reilly MD Work Phone: [facility]07-09-2024 11:230400Systolic blood hkocxgdm397 mm[Hg]Randa Reilly MD Work Phone: [facility]06-07-2024 10:00-0400Body .48 cmDO Broderick Ball Work Phone: 1(261)217[facility]72[facility]06-07-2024 10:00-0400 Body mass index (BMI) [Ratio]34.5 kg/m2DO Broderick Ball Work Phone: 1(014)284-[address] [place], [place] 1632806-07-2024 10:00-0400 Body eakjis68.72 kgDO Broderick Ball Work Phone: 1(475)[address]05-15-2024 13:34-0400 Body ctampv502.48 cmDO Broderick Ball Work Phone: 1(078)[address]05-15-2024 13:34-0400 Body mass index (BMI) [Ratio]33.3 kg/m2DO Broderick Ball Work Phone: 1(452)624-50[facility]05-15-2024 13:34-0400 Body qpprka11.78 kgDO Broderick Ball Work Phone: 1(183)657-[address] [place], [place] 1632805-15-2024 13:34-0400 Diastolic blood sbenesqx85 mm[Hg]DO Broderick Ball Work Phone: 1(388)493-[address] [place], [place] 1632805-15-2024 13:34-0400 Heart rate73 /minDO Broderick Ball Work Phone: 1(755)232-75[facility]05-15-2024 13:34-0400 Respiratory rate12 /minDO Broderick Ball Work Phone: 1(812)[phone]05-15-2024 13:34-0400 Systolic blood mm[Hg]DO Broderick Ball Work Phone: [facility]05-13-2024 11:25-0400 Body yqznzx172.48 cmDO Broderick Howard Work Phone: [facility]05-13-2024 11:25-0400 Body ljutig28.36 kgDO Broderick Howard Work Phone: [facility]04-23-2024 08:53-0400 Body driuxq547.5 Keanu Reilly MD Work Phone: [facility]and Qpduhz41-01-7911 08:53-0400Body mass index (BMI) [Ratio]34.06 kg/s2CtlwhRanda Reilly MD Work Phone: [phone] hospitaland Visszd09-57-5757 08:53-0400Body hgpwaj96.46 kgRanda Reilly MD Work Phone: [phone] hospitaland Ljgqga92-36-3219 08:53-0400Diastolic blood njfhyuyj34 mm[Hg]Randa Reilly MD Work Phone: [phone] [facility] will[facility] hospitaland Onoivq26-89-2788 08:53-0400Heart rate85 /min Randa Reilly MD Work Phone: [phone] hospitaland Mwtrzc33-50-8751 08:53-0400Systolic blood ohpcdtwv853 mm[Hg]Randa Reilly MD Work Phone: [phone] health will[facility] hospitaland Guestx16-89-7242 14:58-0400Body qbdikx134.29 cmProm[facility]03-27-2024 14:58-0400Body mass index (BMI) [Ratio]33.5 kg/r7GehvggleyPromedica Toledo Hospital03-27-2024 14:58-0400Body dhagwe45.08 kgPromedica Toledo Hospital03-27-2024 14:58-0400Diastolic blood wpyjozfw58 mm[Hg][facility]03-27-2024 14:58-0400 Heart rate78 /[facility]03-27-2024 14:58-0400 Respiratory rate12 /[facility]03-27-2024 14:58-0400 Systolic blood mm[Hg][facility]02-08-2024 09:02-0500Body .5 Omar Villar MD, PhD Work Phone: [phone] [facility] / [facility]ille HospitalElslla37-05-1243 09:02-0500Body temperature 97.59 [degF]Alejandro Villar MD, PhD Work Phone: GB[facility] HospitalRicogc34-20-9568 09:02-0500Body .64 kgAlejandro Villar MD, PhD Work Phone: IB[facility] HospitalJtgejs73-19-0256 09:02-0500Diastolic blood iugvshbr59 mm[Hg]Alejandro Villar MD, PhD Work Phone: NB[facility]ille HospitalAidaet76-97-0981 09:02-0500Heart rate85 /min Alejandro Villar MD, PhD Work Phone: CB[facility]ille HospitalJzxyaa47-67-7872 09:02-6550VsK5% (BldA) [Mass fraction]100 %Alejandro Villar MD, PhD Work Phone: [facility] [id number] 09:02-0500Systolic blood lqeqkowm386 mm[Hg]Alejandro Villar MD, PhD Work Phone: YBrec[facility] [id number] 14:50-0400Body cchrae317.5 cmMarisol Bell REGULATORY SUBMISSIONS ASSOCIATE.[employer] Work Phone: [facility]10-25-2023 14:50-0400Body pryymx27.5 kgMarisol Bell REGULATORY SUBMISSIONS ASSOCIATE.[employer]ER Work Phone: [facility]10-25-2023 14:50-0400Diastolic blood rkxukdrl04 mm[Hg]Mirian Bell REGULATORY SUBMISSIONS ASSOCIATE.[employer]ER Work Phone: [facility]10-25-2023 14:50-0400Heart rate62 /min Mirian Bell REGULATORY SUBMISSIONS ASSOCIATE.[employer]ER Work Phone: [facility]10-25-2023 14:50-0400Systolic blood wjllisvb759 mm[Hg]Mirian Bell APRYfnAIRPORT TRAFFIC CONTROLLER Work Phone: [facility]10-11-2023 10:20-0400Body ndigkj584.29 cmDeborah Blades Other [facility] Other 10-11-2023 10:20-0400Body mass index (BMI) [Ratio] 34.35 kg/c8Kzzqxlb Blades Other [facility] Other 10-11-2023 10:20-0400Body jnpack65.36 kgDeborah Blades Other [facility] Other 10-02-2023 10:00-0400Body acizol065.29 cmDeborah Blades Other [facility] Other 10-02-2023 10:00-0400Body mass index (BMI) [Ratio] 34.35 kg/j7Oabglpn Blades Other [facility] Other 10-02-2023 10:00-0400Body ytcmmv57.36 kgDeborah Blades Other [facility] Other 09-21-2023 07:21-0400Body anvyxxgovtq46.8 [degF]DO Broderick Ball Work Phone: [facility]09-21-2023 07:21-0400 Diastolic blood dxoabjvd12 mm[Hg]DO Broderick Ball Work Phone: [facility]09-21-2023 07:21-0400 Heart rate63 /minDO Broderick Ball Work Phone: [facility]09-21-2023 07:21-0400 Respiratory rate14 /minDO Broderick Ball Work Phone: [address] [place], [place] [address]136509-21-2023 07:21-0400 SaO2% (BldA) [Mass fraction]97 %DO Jemstep Work Phone: [facility]09-21-2023 07:21-0400 Systolic blood qqymzasu829 mm[Hg]DO Jemstep Work Phone: [facility]09-21-2023 06:00-0400 Body pkpdjy19.7 kgDO Jemstep Work Phone: [phone]09-20-2023 00:00-0400 Inhaled oxygen flow rate3 L/minDO Jemstep Work Phone: [phone]09-19-2023 07:02-0400 Body fkurys017.48 cmDO Jemstep Work Phone: [phone]09-19-2023 07:02-0400 Body mass index (BMI) [Ratio]35 kg/m2DO Jemstep Work Phone: [facility]08-23-2023 14:20-0400 Body rzetwe612.29 cmDeborFiber Optionss Other [employer] Other 08-23-2023 14:20-0400Body mass index (BMI) [Ratio] 33.65 kg/c5Mmozexa Blades Other [employer] Other 08-23-2023 14:20-0400Body lpcoig64.54 kgDeborah Blades Other [employer] Other 08-23-2023 14:20-0400Diastolic blood hmpbjytj31 mm[Hg] Niki Blades Other [employer] Other 08-23-2023 14:20-0400Systolic blood ltwrwqik184 mm[Hg] Niki Blades Other [employer] Other 07-21-2023 08:42-0400Body rxloiq953.56 cmDO Broderick Howard Work Phone: [facility]07-21-2023 08:42-0400 Body eeijfa36.08 kgDO Broderick Ball Work Phone: [facility]06-22-2023 14:30-0400 Body pkkwko921.29 cmCameron Mirthay Other [employer] Other 06-22-2023 14:30-0400Body mass index (BMI) [Ratio]33.3 kg/l9Oukvmdc Ditty Other [employer] Other 06-22-2023 14:30-0400Body uegbme13.64 kgCameron Ditty Other [employer] Other 06-22-2023 14:30-0400Diastolic blood ijumdosu90 mm[Hg] Bertram Janatty Other [employer] Other 06-22-2023 14:30-0400Systolic blood puwmprge432 mm[Hg] Bertram Ditty Other [employer] Other 06-19-2023 14:30-0400Body tffurv923.29 cmBenjamin Ball Other [email or web address] Other 06-19-2023 14:30-0400Body mass index (BMI) [Ratio] 33.16 kg/z6Ebybyors Ball Other [employer] Other 06-19-2023 14:30-0400Body sfmdno39.27 kgBenjamin Ball Other [employer] Other 06-19-2023 14:30-0400Diastolic blood igxstjqu96 mm[Hg] Broderick Ball Other [employer] Other 06-19-2023 14:30-0400Respiratory rate12 /minBenjamin Ball Other [email or web address] Other 06-19-2023 14:30-0400Systolic blood swcgmyah580 mm[Hg] Broderick Ball Other [email or web address] Other 05-11-2023 11:00-0400Body mahaqw652.29 cmBenjamin Ball Other [employer] Other 05-11-2023 11:00-0400Body mass index (BMI) [Ratio] 33.61 kg/l3Amytdcgp Ball Other [employer] Other 05-11-2023 11:00-0400Body muoykl87.45 kgBenjamin Ball Other [employer] Other 05-11-2023 11:00-0400Diastolic blood bujwsepw41 mm[Hg] Broderick Ball Other [email or web address] Other 05-11-2023 11:00-0400Respiratory rate12 /minBenjamin Ball Other [employer] Other 05-11-2023 11:00-0400Systolic blood icsjbyte886 mm[Hg] Broderick Ball Other [employer] Other 02-23-2023 14:15-0500Body aroqfb014.29 cmCameron Tommy Other [employer] Other 02-23-2023 14:15-0500Body mass index (BMI) [Ratio] 32.25 kg/g1Nwygsoa Ditty Other [employer] Other 02-23-2023 14:15-0500Body brizxb81.92 kgCameron Ditty Other [employer] Other 02-23-2023 14:15-0500Diastolic blood frbzsipm77 mm[Hg] Bertram Shannony Other [employer] Other 02-23-2023 14:15-0500Systolic blood cehuvyvx237 mm[Hg] Bertram Sanders Other [employer] Other 01-11-2023 11:00-0500Body vaesvu239.29 cmBenjamin Ball Other [employer] Other 01-11-2023 11:00-0500Body mass index (BMI) [Ratio] 32.25 kg/q4Hlpszwhu Ball Other [employer] Other 01-11-2023 11:00-0500Body uckmjp36.92 kgBenjamin Ball Other [employer] Other 01-11-2023 11:00-0500Diastolic blood riytwyvx10 mm[Hg] Broderick Ball Other [employer] Other 01-11-2023 11:00-0500Respiratory rate12 /minBenjamin Ball Other [employer] Other 01-11-2023 11:00-0500Systolic blood nomiohut973 mm[Hg] Broderick Howard Other [facility] [employer] Other [id number] 13:48-0400Body ngnidx036.5 Omar Villar MD, PhD Work Phone: cBrecksville [facility] Crille HospitalCfgsac01-76-2563 13:48-0400Body ojgpgt27.27 kgAlejandro Villar MD, PhD Work Phone: [phone] VA / Crille HospitalOskgvc62-29-7136 13:48-0400Diastolic blood lymsalft16 mm[Hg]Alejandro Villar MD, PhD Work Phone: [phone] VA / Crille HospitalUldvpl78-03-4575 13:48-0400Heart rate76 /min Alejandro Villar MD, PhD Work Phone: cBrecksville [facility] / Crille HospitalIvdjjm66-95-4910 13:48-0400Systolic blood qkyvbglp820 mm[Hg]Alejandro Villar MD, PhD Work Phone: cBrecksville [facility] / Crille HospitalWaraxs83-02-5394 10:09-0400Body xztugw173 cm Kitty Millard MD Work Phone: [facility]09-08-2022 10:09-0400Body ajybog60 kg Kitty Millard MD Work Phone: [facility]09-08-2022 10:09-0400Diastolic blood ioyhwneo52 mm[Hg]Kitty Millard MD Work Phone: [facility]09-08-2022 10:09-0400Heart rate63 /min Kitty Millard MD Work Phone: [facility]09-08-2022 10:09-0400Systolic blood vfxpfpoi535 mm[Hg]Kitty Millard MD Work Phone: [facility]02-22-2022 11:30-0500Body aqmetz867.29 Cadycassie Shannontanisha Other [place] [employer] Other 02-22-2022 11:30-0500Body mass index (BMI) [Ratio] 30.68 kg/h7BnmmxpbBertram Sanders Other [place] [employer] Other 02-22-2022 11:30-0500Body ztcnli00.83 kgCamkiley Sanders Other [facility] [employer] Other Encounters Encounter DateEncounter TypeCare ProviderFacilityStart: 08-28-2025 End: 30-84-0953oxgppzcoqsEgttkijm Ball DO Work Phone: [facility] Work Phone: Start: 08-28-2025 End: 81-50-1260Piddidv encounter procedureHank Lamb APRN-[facility] Gastro Work Phone: Start: 08-27-2025 End: 45-23-0583mprwghlqbhCtbwnvsKeith Parks MDFacility:PM [place] Start: 08-15-2025 End: 82-89-1115piebbmjarwYjpawudf Ball DO Work Phone: [facility] Work Phone: Start: 08-15-2025 End: 81-13-3092Jidkfkh encounter procedureKatina Ordoñez MD-[facility] Neph [place] Work Phone: Start: 87-59-0005Xyw-patient / Non-visitKatina Ordoñez MD -[facility] Professional Co Work Phone: Start: 08-01-2025 End: 39-94-5012Bwewfgv encounter procedureTiana Brush SALES TEAM MANAGER-[facility] [place] Work Phone: Start: 08-01-2025 End: 76-05-9295byvndzjepjKbbzyhhw Ball DO Work Phone: [facility] Work Phone: Start: 07-23-2025 End: 18-36-4693ncmjptfenyFcxk E GantzFacility:[facility] Start: 38-48-3276Doq-patient / Non-visitMShaye Gama-[facility]hythm ClinicStart: 07-18-2025 End: 65-98-2399Nhzwnpu encounter procedureRanda Reilly MD Work Phone: NeurologyComment on above:Intractable 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 aura and without status migrainosus (Primary Dx)Start: 07-18-2025 End: 94-04-9236zgeggrnemsWSRBX M CARDONAFacility:[facility] Hospitaltart: 07-02-2025 End: 48-01-4283xajdrvddeyCighpgjz Ball DO Work Phone: [facility] Work Phone: Start: 07-02-2025 End: 13-31-6867Sbnpqyi encounter procedureBegiovani Ball DO-[facility] Work Phone: Start: 05-21-2025 End: 27-05-4246Bssmtj outpatient new 45 minutesNicholas Doher DO Work Phone: NeurologyComment on above:Chronic pain syndrome (Primary Dx); MCI (mild cognitive impairment); Sinus node dysfunction (HCC); Obesity, Class II, BMI 35-39.9Start: 05-21-2025 End: 23-02-6924sepuobkojlIIAQZYKG DOHERFacility:[facility] HospitalStart: 04-10-2025 End: 48-02-5383Injuskc encounter Marie Reilly MD Work Phone: NeurologyComment on above:Intractable 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 aura and without status migrainosus (Primary Dx)Start: 04-10-2025 End: 89-17-9452vekeyvlpjcYNZXN M CARDONAFacility:[facility] Hospitaltart: 02-22-2025 End: 80-01-7621rxccgrmhrnZmciqfqp Ball DO Work Phone: [facility] Work Phone: Start: 02-22-2025 End: 29-24-9832Atkqixh encounter procedureBegiovani Howard DO Work Phone: [facility] Nephrology Sunny Work Phone: Start: 02-21-2025 End: 97-45-6544khyzwemiueEzzxayfx Ball DO Work Phone: [facility] Work Phone: Start: 02-21-2025 End: 11-84-0609Vmgpsuz encounter procedureBenmary jo Howard DO Work Phone: [facility] Work Phone: Start: 73-09-2877Rpr-patient / Non-visitBefrankiemary jo Howard DO Work Phone: [facility] Professional Co Work Phone: Start: 01-23-2025 End: 89-67-1328Rvapeu-up encounterAlejandro Villar MD, PhD Work Phone: NeurologyStart: 01-05-2025 End: 31-34-6453Klpocvq encounter Jamir Mayfield APRN.CNP Work Phone: NeurologyComment on above:Intractable 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 aura and without status migrainosus (Primary Dx)Start: 01-05-2025 End: 30-04-8578kkzahvmqmvGXKUFE POULTONFacilkettering health hamilton:[facility] Hospitaltart: 01-04-2025 End: 01-25-2102Uzkzkfs encounter Liz Villar MD, PhD Work Phone: NeurologyComment on above:Localization-related (focal) (partial) symptomatic epilepsy and epileptic syndromes with complex partial seizures, intractable, without status epilepticus (HCC) (Primary Dx); Memory lossStart: 01-04-2025 End: 68-77-9197kcurqahzhhSIBVER S STOJICFacility:[facility] HospitalStart: 12-13-2024 End: 95-71-6774Ouhscp outpatient visit 15 minutesFredric H Itzkowitz DO Work Phone: [address] ST GENSComment on above:Abdominal wall hematoma, subsequent encounter (Primary Dx)Start: 12-13-2024 End: 23-62-6520qoaywdblwfTMAHGPO H ITZKOWITZNot AvailableStart: 12-09-2024 End: 82-61-9532HniyjeQabqc Branden AIRPORT TRAFFIC CONTROLLER Work Phone: NeurologyComment on above:Refill RequestStart: 12-08-2024 End: 93-60-4094pcviysuwyxAsfolmfr Ball DO Work Phone: [facility] Work Phone: Start: 12-08-2024 End: 94-94-1885Itmcuml encounter procedureBenjamin Ball DO Work Phone: [facility] Work Phone: Start: 11-29-2024 End: 03-84-4796Oitbqp outpatient new 45 minutesFredric H Itzkowitz DO Work Phone: n[address] ST GENSComment on above:Abdominal wall hematoma, initial encounter (Primary Dx)Start: 11-29-2024 End: 77-76-9445fgnmiwgjeiBRWLUXC H ITZKOWITZNot AvailableStart: 11-28-2024 End: 23-12-4258glvekecenaWihapikq Ball DO Work Phone: [facility] Work Phone: Start: 11-28-2024 End: 12-08-9200Mlwcveh encounter procedureBenjamin Ball DO Work Phone: [facility] Phys[facility] Work Phone: Start: 11-24-2024 End: 38-03-1524Eeexfiwhr department patient visitBenjamin Ball DO Work Phone: [facility]-Emergency Room Work Phone: Start: 11-24-2024 End: 63-98-4531ykjvolbeuiBflcwcuzrOhioHealth Marion [facility] Hospital Work Phone: Start: 11-24-2024 End: 66-48-7596Wfwbsys encounter procedureFirsthealth Physician [facility] Work Phone: Start: 11-17-2024 End: 57-75-6990mxfzansuqjYtyptrgyaOhioHealth Marion General Hospital Work Phone: Start: 11-17-2024 End: 59-29-0245Kdcbntm encounter procedureFirsthealth Physician [facility] Work Phone: Start: 11-02-2024 End: 85-84-2819zchfohjxolRfnbfqq B RhiewFacility:FTMCStart: 11-02-2024 End: 66-55-2642Ixekljz encounter procedureShashi Barragan Rhiew [facility] Start: 10-27-2024 End: 07-04-2545Sorgrlkgm for other preprocedural examinationBucyrus Community Hospitaltart: 10-27-2024 End: 32-01-4138Fopilar encounter procedureFirsthealth Physician [facility] Work Phone: Start: 37-15-7653Pop-patient / Non-visitFirinova [facility] Physician [facility] Work Phone: Start: 10-25-2024 End: 15-17-9720rrulyucxytBiffdju B RhiewFacility:FTMCStart: 10-23-2024 End: 76-51-2110dvfpjhdvpbCstzdvu B RhiewFacility:FTMCStart: 10-23-2024 End: 92-79-4080Njkrsjg encounter procedureShashi Barragan Rhiew [facility] Start: 10-02-2024 End: 13-63-9990flsbutjdcvJXGSOHSAZ ROMEO ESPOSITOFacility:[facility] Hospitaltart: 09-07-2024 End: 24-59-6416yfaxdgykreXJ Broderick Howard Work Phone: [facility] Work Phone: Start: 09-07-2024 End: 60-48-6269Wdigzzv encounter procedureDO Broderick Howard Work Phone: [facility] Nephrology Sunny Work Phone: Start: 09-05-2024 End: 90-95-4931Bvejpfu encounter Marie Reilly MD Work Phone: NeurologyComment on above:Intractable 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 aura and without status migrainosus (Primary Dx)Start: 09-05-2024 End: 87-30-5022qacvxooukePHHJI M CARDONAFacility:[facility] HospitalStart: 08-31-2024 End: 60-95-7436yecgagpmlcOTQRTADQZ ROMEO ESPOSITOFacility:[facility] Hospitaltart: 08-31-2024 End: 20-20-5545Qqhjhe outpatient visit 25 minutesKitty Millard MD Work Phone: CardiologyComment on above:Sinus node dysfunction (HCC) (Primary Dx); Cardiac pacemaker in situ; BradycardiaStart: 08-30-2024 End: 43-86-7558idpqgcklztBY Broderick Howard Work Phone: [facility] Work Phone: Start: 08-30-2024 End: 23-54-4236Jjxnmyo encounter procedureDO Broderick Howard Work Phone: [facility] Physician Group[facility] Work Phone: Start: 08-29-2024 End: 62-57-5668gfdjotfvbeKZ Broderick Howard Work Phone: [facility] Work Phone: Start: 08-29-2024 End: 32-24-5394Cedrjsf encounter procedureDO Broderick Howard Work Phone: [facility] Work Phone: Start: 08-29-2024 End: 75-02-9438vfsoybyvfoBT Broderick Howard Work Phone: [facility] Work Phone: Start: 08-29-2024 End: 50-66-7549Uolwfkc encounter procedureDO Broderick Howard Work Phone: [facility] Gastroenterology Work Phone: Start: 81-16-1263Uwm-patient / Non-visitDO Broderick Howard Work Phone: [facility] Professional Co Work Phone: Start: 92-11-4299Guf-patient / Non-visitDO Broderick Howard Work Phone: [facility] Professional Co Work Phone: Start: 07-05-2024 End: 04-58-5766kywgiukanhVT Broderick Howard Work Phone: [facility] Work Phone: Start: 07-05-2024 End: 46-85-9950Dmiofdyz ReferredDO Broderick Howard Work Phone: [facility]-LAB Path Spec Anthony HospStart: 75-28-4177Qxr-patient / Non-visitDO Broderick Howard Work Phone: [facility] Professional Co Work Phone: Start: 06-29-2024 End: 35-75-7628Bvkenvo encounter procedureAlejandro Villar MD, PhD Work Phone: NeurologyComment on above:Focal epilepsy with impairment of consciousness, intractable (HCC) (Primary Dx); Partial epilepsy with impairment of consciousness, intractable (HCC)Start: 06-27-2024 End: 04-26-5519rgyiadjxgwWF Broderick Howard Work Phone: [facility] Work Phone: Start: 06-27-2024 End: 46-62-4894Uedgquj encounter procedureDO Broderick Howard Work Phone: [facility] Work Phone: Start: 06-12-2024 End: 57-79-4163znlwiggclbQOJACK GambleNot AvailableStart: 06-08-2024 End: 25-23-5241quewhdoghzQF Broderick Howard Work Phone: [facility] Work Phone: Start: 06-08-2024 End: 85-69-6662Selzrfk encounter procedureDO Broderick Howard Work Phone: [facility] Nephrology Sunny Work Phone: Start: 27-49-9374Uoy-patient / Non-visitDO Broderick Howard Work Phone: [facility] Professional Co Work Phone: Start: 05-30-2024 End: 05-33-1315vfocomrrxxRV Broderick Howard Work Phone: [facility] Work Phone: Start: 05-30-2024 End: 97-23-2626Qrdwoya encounter procedureDO Broderick Howard Work Phone: [facility] [place] Work Phone: Start: 05-23-2024 End: 19-79-8734Xepjqhy encounter procedureRanda Reilly MD Work Phone: NeurologyComment on above:Intractable 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 aura and without status migrainosus (Primary Dx)Start: 42-76-2514Gik- patient / Non-visitDO Broderick Howard Work Phone: [facility] Professional Co Work Phone: Start: 11-73-5194Nuv-patient / Non-visitDO Broderick Howard Work Phone: [facility] Work Phone: Start: 05-03-2024 End: 02-11-5863fazhdlmopsZTUVTVW J MEYERNot AvailableStart: 04-21-2024 End: 54-16-3036fqrfpvsctfTZ Broderick Howard Work Phone: [facility] Work Phone: Start: 04-21-2024 End: 05-87-4635Yswwbvu encounter procedureDO Broderick Howard Work Phone: [facility] Neurosurgery Work Phone: start: 03-29-2024 End: 44-67-1181Omvfzro encounter procedureDO Broderick Howard Work Phone: [facility] Work Phone: Start: 03-28-2024 End: 74-71-3661Wpzlxwd encounter procedureDO Broderick Howard Work Phone: [facility] [place] Work Phone: Start: 03-09-2024 End: 29-99-0631ilyxsvazlwRN Broderick Howard Work Phone: [facility] Work Phone: Start: 03-09-2024 End: 91-23-1768Cpogtcw encounter procedureDO Broderick Howard Work Phone: [facility]-Pacemaker CheckStart: 89-94-2598Awbqmz-up encounterChdanny Millard MD Work Phone: [facility] DepartmentStart: 27-87-0476Oxaodvb encounter procedureChdanny Millard MD Work Phone: [facility] DepartmentStart: 03-07-2024 End: 92-97-8031Axjznor encounter procedureRanda Reilly MD Work Phone: NeurologyComment on above:Intractable 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 aura and without status migrainosus (Primary Dx); Cervicalgia; SHELL (obstructive sleep apnea)Start: 25-72-3807Rse-patient / Non-visitDO Broderick Howard Work Phone: [facility] Professional Co Work Phone: Start: 19-61-8941Dik-patient / Non-visitDO Broderick Howard Work Phone: [facility] Work Phone: Start: 44-99-0074Wqm-patient / Non-visitDO Broderick Howard Work Phone: [facility] Professional [employer] Work Phone: Start: 02-09-2024 End: 67-08-1016extqilmfciJfwprjtxjOhioHealth [facility] Hospital Work Phone: Start: 02-09-2024 End: 34-15-9833Jlrcoag encounter procedureFirsthealth Physician Group-[facility] Work Phone: Start: 12-23-2023 End: 29-42-9303Jpirldb encounter procedureAlejandro Villar MD, PhD Work Phone: NeurologyComment on above:Intractable 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 aura and without status migrainosus (Primary Dx)Start: 11-24-2023 End: 68-99-5712xapljbhxwsUslvqhsd Lee Other [facility] [employer] Other Start: 47-09-8362Pzlwlj outpatient visit 15 minutes Broderick HowardCleveland Clinic South Pointe Hospitaltart: 11-24-2023 End: 55-46-6431Ejfnnhg encounter procedureAlisa Physician Group-[facility] Work Phone: Start: 90-26-2522UltpvzVhcayk S Stojic MD, PhD Work Phone: NeurologyComment on above:Refill RequestPatient Update Start: 66-94-5899Rsatst-up encounterKitty Millard MD Work Phone: [facility] MAINStart: 09-08-2023 End: 74-27-6294Tvrwzns encounter procedureChdanny Millard MD Work Phone: [facility] DepartmentComment on above:Sinus node dysfunction (HCC) (Primary Dx); Cardiac pacemaker in situ; BradycardiaStart: 08-25-2023 End: 02-49-3623mvdrseyjudMtbrmsr Blades Other [employer] Other start: 69-54-3189Abziag follow up visit related to original pxDeborah BladesFPG [facility] NeurosurgeryStart: 08-16-2023 End: 39-67-2743rtsdbxoczoYluhtuk Blades Other [employer] Other start: 81-33-3979Bmkvcv follow up visit related to original pxDeborah BladesFPG [facility] NeurosurgeryStart: 08-13-2023 End: 41-86-7435ehqtwqhlzbQsielkoq Ball Other [employer] Other Start: 57-38-2490Kflmxtuei encounterBegiovani [facility] ClinicStart: 08-12-2023 End: 56-03-4205sacpkcvzpbRjaqjrl Blades Other [employer] Other start: 44-48-7200Kwgmii follow up visit related to original pxDeborah BladesFPG [facility] NeurosurgeryStart: 08-03-2023 End: 04-96-2977Csmvxewwy to same day surgery [place] cityDO Broderick Howard Work Phone: [facility] HospitalStart: 08-03-2023 End: 22-16-7282ilprwltukaJW Broderick Howard Work Phone: [facility] Work Phone: Start: 08-02-2023 End: 90-57-5772mvfzrzlpcgNlrjyklf Ball Other [employer] Other Start: 74-82-0173Hfzpdjjug encounterBefrankiemary jo HowardFPJayna Howard Medical ClinicStart: 07-20-2023 End: 31-98-0591afcqsvfnmyLE Broderick Howard Work Phone: [facility] Work Phone: Start: 07-20-2023 End: 47-34-9535Snsyrug encounter procedureDO Broderick Howard Work Phone: [facility] Woj-Fui-Ndqgflhu Testing Work Phone: Start: 07-09-2023 End: 88-10-1123svrkqemcpfEujjupt Blades Other [employer] Other start: 33-74-7845Mskrulhky encounterDeborah BladesFPG Referral CoordinatorStart: 07-07-2023 End: 13-24-3839krzkojtdqxFgqrxqe Blades Other [employer] Other start: 53-41-3698Jasyxz outpatient new 45 minutes Niki BladesFPG [facility] NeurosurgeryStart: 58-89-4919Jjkbbb-up encounter Kitty Millard MD Work Phone: [facility] MAINStart: 95-84-3973Doewndejp Remote F/Marychuy Millard MD Work Phone: [facility] DepartmentStart: 38-40-9879tpdyjsmbiz Facility:9090Start: 06-04-2023 End: 87-05-5311lojyhcgcenEE Broderick Howard Work Phone: [facility] Work Phone: Start: 06-04-2023 End: 42-38-6158Mbfwnqb encounter procedureDO Broderick Howard Work Phone: [facility] [place] Work Phone: Start: 21-07-7061plyzmkmvjqLcqqezwl:9090Start: 05-14-2023 End: 02-63-1203didvyekabzXW Broderick Howard Work Phone: [facility] Work Phone: Start: 05-14-2023 End: 77-24-2532Yzsaltb encounter procedureDO Broderick Howard Work Phone: [facility]-Pacemaker CheckStart: 05-06-2023 End: 34-34-3050dtalnitbcnKwchxad Ditty Other [employer] Other Start: 68-30-0687Bgamyqa encounter procedureCameron DittyFPG GastroenterologyStart: 05-03-2023 End: 67-40-2917hcnbucpbuxJiwzqrjm Ball Other [employer] Other Start: 30-93-9335Jjfyud outpatient visit 15 minutes Broderick BallFPG [facility] ClinicStart: 58-18-7601Jssoellvh encounterBenjamin BallFPG [facility] ClinicStart: 03-29-2023 End: 56-36-0502pspzflwshpOR BRODERICK [employer] Other Start: 50-98-1047Pppesapls encounterBenjamin BallFPG [facility] ClinicStart: 03-25-2023 End: 91-66-7192ncvjnfcotdBsorotsq Ball Other [employer] Other Start: 75-72-8900Guqsgy outpatient visit 25 minutes Broderick BallFPG [facility] ClinicStart: 03-15-2023 End: 60-02-5280fdahemlvclWQYLNC H FAWWADFacility:D6Vytpo: 93-41-7577Kamntc-up encounterKitty Millard MD Work Phone: [facility] MAINStart: 63-68-2743Plydmxpgr Remote F/Marychuy Millard MD Work Phone: [facility] DepartmentStart: 02-15-2023 End: 98-94-3278chsckajhhsCFVDQD H FAWWADFacility:N0Vfoas: 02-03-2023 End: 79-30-4154nmwblxhzxmYgrbvsg Ditty Other [employer] Other Start: 16-72-1125Viilvlkrg encounterCameron DittyFPG GastroenterologyStart: 01-13-2023 End: 20-42-7467kgliqwoubkGZFYQG H FAWWADFacility:A5Chovi: 01-07-2023 End: 66-32-4390jrzgnuzvdtFzsxjev Ditty Other [employer] Other Start: 99-35-3784Epdgodf encounter procedureCameron DittyFPG GastroenterologyStart: 12-16-2022 End: 25-95-1897aiottuibwfRPFZTX H FAWWADFacility:T2Xsuim: 11-25-2022 End: 40-40-6410mexwiszhmqEthajurs Ball Other FitnessManagerun[facility] [employer] Other Start: 63-49-7290Renjtb-up encounterKitty Millard MD Work Phone: [facility]cf [facility] MAINStart: 92-43-4153Qoeobw outpatient visit 25 minutesBenjamin BallFPG [facility] ClinicStart: 11-25-2022 Pacemaker Remote F/Marychuy Millard MD Work Phone: [facility] DepartmentStart: 84-61-2885Xumvbcf encounter procedureBenjamin Ball Other Nort [employer] Other Start: 11-16-2022 End: 94-67-1279xzrlvhqrhdPOVNKJ H FAWWADFacility:V9Cmrdv: 38-71-3462Euqau health examinationDeborah Blades Other [email or web address] Other start: 50-10-1098Dsnlqlpzvbwyw examination normal Niki Blades Other [facility] [employer] Other start: 10-15-2022 End: 18-92-4817hkghrqjztuUYRBBN H FAWWADFacility:Z0Zncxs: 09-15-2022 End: 14-50-3206rsygvyfukxVCCCHE H FAWWADFacility:E3Trila: 09-10-2022 End: 49-80-6959Objvqvv encounter procedureAlejandro Villar MD, PhD Work Phone: NeurologyComment on above:Partial epilepsy with impairment of consciousness, intractable (HCC)Start: 25-61-2258Gtfozl-up encounterKitty Millard MD Work Phone: ccf [facility] MAINStart: 58-77-7569Xhxxvncbq Remote F/Marychuy Millard MD Work Phone: [facility] DepartmentStart: 08-16-2022 End: 04-30-0971mffygppcxyMEHVCA H FAWWADFacility:O3Zjxss: 08-10-2022 End: 28-18-8104rchijjfbrnFV BRODERICK BALLFacility:Q6Rrael: 08-03-2022 End: 04-27-8489uusrxylemvPU BRODERICK BALLFacility:S0Wwcnb: 07-31-2022 End: 51-75-5622bjklssitwrTX BRODERICK BALLFacility:F1Vmrul: 07-29-2022 End: 33-79-1037ogijkbrkrqKV BRODERICK BALLFacility:N8Comix: 07-23-2022 End: 84-98-6929Smixfke encounter procedureChsophiatine Romeo Millard MD Work Phone: CardiologyComment on above:Chronic fatigue (Primary Dx)Start: 07-16-2022 End: 44-24-7828blgcbmjbszALQTLO H FAWWADFacility:Z6Xsgnd: 06-15-2022 End: 20-70-5072eyyeqdtmmuJGNZSZ H FAWWADFacility:P7Pncas: 06-08-2022 End: 58-91-7702hyesftdbqkMF BRODERICK BALLFacility:E6Eodkt: 05-15-2022 End: 67-63-1787ktxpsnmhxbCQ BRODERICK BALLFacility:O8Jydvu: 01-06-2022 End: 15-71-0345ewxklztktcEyqtsrx Ditty Other [email or web address] Other Start: 22-50-7952Sqruppu encounter procedureCamkliey SandersFPG GastroenterologyStart: 10-14-2020 End: 68-26-3640Qyg-procedure evaluation checkDeborah Blades Other [employer] Other Procedures DateProcedureProcedure DetailPerforming ClinicianStart: 63-70-5595VY lumbar spine wo conBenjamin Ball DO Work Phone: Start: 49-24-1147ZX screening mammo BI w/CADBenjamin Ball DO Work Phone: Start: 15-24-8829TJ of abdomen and pelvis without contrastBenjamin Ball DO Work Phone: Start: 24-93-1389Kykacljk identified in Blood by CultureBenjamin Ball DO Work Phone: Start: 24-76-0021MykmrbnwenmRfoucbi Rhiew Start: 11-92-3571Owg routine ecg w/least 12 lds i&r onlyCcf ProviderStart: 07-15-7688TD lumbar spine wo conDO Broderick Ball Work Phone: Start: 78-22-5182DAD of lumbar spine with contrastDO [employer] Work Phone: Start: 89-77-4184IVIYDTWWU REMOTE Eloy Millard MD Work Phone: Start: 86-55-3262EPLCPPIYY CLINIC Eloy Millard MD Work Phone: Start: 12-55-9059Kjhmbkcj of lumbar intervertebral discDO [employer] Work Phone: Start: 73-48-8900Z-ray of lumbar spine, single viewDO [employer] Work Phone: Start: 05-81-1204EZOHEJSDP REMOTE Eloy Millard MD Work Phone: Start: 12-43-5313GRU of lumbar spine with contrastDO [employer] Work Phone: Start: 43-20-9910NR pre/post mri xrayDO Broderick Campalyst Work Phone: Start: 78-55-9348JJQBLFLHF REMOTE Eloy Millard MD Work Phone: Start: 53-99-5196GWWQNJNBQ REMOTE Eloy Millard MD Work Phone: Start: 67-54-0944WIEHCJMTQ REMOTE Eloy Millard MD Work Phone: Start: 61-49-9989Fkcajhojr for malignant neoplasm of colonDeborah Blades Other start: 96-38-1047Zgrykbtib mammographyDeborah Blades Other start: 36-12-2840RrvloufdltcmJllgwfj Ap Arthroscopy of shoulderRichjeffrey Ajayw Cardiac pacemaker, device (physical object)Shashi Ajayneo Cataract surgeryRichard Rhiew CholecystectomyShashi De Souza ColonoscopyRcallie De Souza End: 30-74-7130Ayjgoqwdyd screeningDebea Rmtina Other esophagogastroduodenoscopyShashi De Souza Hammer toe operationShashi De Souza History of cervical laminectomyShashi De Souza Comment on above:DR Ortez of lumbar laminectomyShashi De Souza Comment on above:2022 Dr Weeks - FirelandsHistory of Whipple procedureShasih De Souza Comment on above:2014Implantable venous catheter, device (physical object)Shashi De Souza Lobectomy of brainShashi De Souza Comment on above:2014 Plan of Treatment DateCare ActivityDetailAuthorStart: 73-12-5092Wbgxwubl ScreeningDiabetes ScreeningProMedica Defiance Regional Hospitaltart: 51-27-5697OB Controlled (<130/80)BP Controlled (<130/80)[facility]: 01-09-2026 End: 45-50-2625Pocnokc encounter dqbcatxxf01/25/2026 11:00 AM EST Office Visit Neurology [address] [place] [address] Alejandro Villar MD, PhD [address] [place] [address] annaul follow upNeurologyComment on above:annaul follow up Start: 32-68-7715DT Controlled (<130/80)BP Controlled (<130/80)[facility] Start: 30-23-1486PG Controlled (<130/80)BP Controlled (<130/80)[facility] Start: 10-30-2025 End: 31-76-5427Zjebabr encounter xnegfokdg88/16/2025 10:30 AM EST Office Visit Neurology [address] [place] [address] [place] [address] [address] [place] [address] BotoxNeurologyComment on above:BotoxStart: 07-18-2025 End: 65-30-3747Hkpiltt encounter /03/2025 10:00 AM EDT Office Visit Neurology [address] [place] [address] [place] [address] [address] [place] [address] BotoxNeurologyComment on above:BotoxStart: 71-92-3501Sxxlphbuy vaccination Influenza Vaccine (#1)[facility]art: 54-61-8143Hptypnp referralPremier Health [facility] Work Phone: Start: 05-21-2025 End: 15-80-6044Lhmmdtq encounter rkdmaiwil13/07/2025 8:00 AM EDT Office Visit Neurology [address] [address] Elian Jones DO [address] [place] [address] MCI (mild cognitive impairment) [G31.84]NeurologyComment on above:MCI (mild cognitive impairment) [G31.84]Start: 04-10-2025 End: 04-42-7460Zguerht encounter pkhkwfaye51/27/2025 11:30 AM EDT Office Visit Neurology [address] [place] [address] [place] [address] [address] [place], [place] [address] BotoxNeurologyComment on above:BotoxStart: 23-26-8674ATU Vaccine (1 - 1- dose 75+ series)RSV Vaccine (1 - 1-dose 75+ series)[facility]: 01-05-2025 End: 43-75-9455Kooibeg encounter nzagzdngf91/21/2025 12:00 PM EST Office Visit Neurology [address] [place] [address] Svitlana [place] APRN.[employer] [address] [place] [address] BotoxNeurologyComment on above:BotoxStart: 01-04-2025 End: 08-81-4434Wvpulam encounter fxnijlfmk01/20/2025 2:00 PM EST Office Visit Neurology [address] [place] [address] Alejandro Villar MD, PhD [address] [place] [address] Follow upNeurologyComment on above:Follow upStart: 12-12-2024 End: 95-40-6303Vhkhyrw encounter tilpstels61/28/2025 11:00 AM EST Office Visit Neurology [address] [place] [address] [place] [address] [facility]/[address] [place] [address] BotoxNeurologyComment on above:BotoxStart: 51-83-7135ZZZWIDEM SCREEN DIABETES SCREENProMedica Defiance Regional Hospitaltart: 96-94-9085Jfeoyifn ScreeningDiabetes ScreeningProMedica Defiance Regional Hospitaltart: 30-63-1702TxvacxmtgPromedica Toledo Hospital Start: 28-88-4847Fdhzhitd identified in Blood by CultureBlood CultureBucyrus Community Hospitaltart: 69-16-5007Ruojztv Directive DiscussionAdvance Directive DiscussionProMedica Defiance Regional Hospitaltart: 01-01-2025Medicare Advantage Annual Wellness VisitMedicare Advantage Annual Wellness VisitProMedica Defiance Regional Hospitaltart: 10-02-2024 End: 02-16-8763Yqpefmd encounter uprskgnft39/18/2024 2:40 PM EST Office Visit Cardiology [address] [place] [address] echo CardiologyComment on above:echoStart: 09-05-2024 End: 38-41-7235Whooehy encounter bnhyvokym60/22/2024 1:30 PM EDT Office Visit Neurology [address] [place] [address] [place] [address] [address] [place] [address] BotoxNeurologyComment on above:BotoxStart: 08-31-2024 End: 53-56-5062Fbkrntb encounter akhqmgtqy07/17/2024 10:00 AM EDT Office Visit Cardiology [address] [place] [address] [place] [address] [place], [place] [address] return in about 1 year (around 09/08/2024)Cardiology Comment on above:return in about 1 year (around 09/08/2024)Start: 07-16-2024 Covid-19 Vaccine ( season)Covid-19 Vaccine ( season) [facility]: 80-00-8618Xfxxsjfaa vaccinationInfluenza Vaccine (#1) [facility]: 06-29-2024 End: 06-92-2241Iwgiprp encounter oglxhpuno47/15/2024 1:00 PM EDT Office Visit Neurology [address] [place] [address] Alejandro Villar MD, PhD [address] [place] [address] Follow Up-rescheduled from 06/22NeurologyComment on above:Follow Up- rescheduled from art: 24-04-4305Bfqmpcz referralTrinity Health [facility] Work Phone: Start: 90-32-2188Zrwbvge Directive DiscussionAdvance Directive DiscussionProMedica Defiance Regional Hospitaltart: 78-04-7465FtucvdrzzBucyrus Community Hospitaltart: 77-55-3499Xclggsju admissionBucyrus Community Hospitaltart: 96-28-8501VxioyqnveBucyrus Community Hospitaltart: 46-00-7257Vhjld-19 Vaccine ( season)Covid-19 Vaccine ()[facility]: 67-37-3117Mbmnpnbwu vaccinationProMedica Defiance Regional Hospitaltart: 66-51-7893AFGRIAE DIRECTIVE DISCUSSIONADVANCE DIRECTIVE DISCUSSIONProMedica Defiance Regional Hospitaltart: 09-10-2022 End: 33-04-8909guyDMUTQclumh [Mass/volume] in Serum or PlasmaTogus Va Medical Center Work Phone: Comment on above:Expected: 09/10/2022, Expires: 11/10/2022tart: 09-10-2022 End: 14-57-0629Iifliwuthv [Mass/volume] in Serum or PlasmaTogus Va Medical Center Work Phone: Comment on above:Expected: 09/10/2022, Expires: 11/10/2022tart: 50-87-6476Puzbehshj vaccinationINFLUENZA (#1)[facility] Start: 52-62-2169Wmlhxrrcm for malignant neoplasm of colonProMedica Defiance Regional Hospitaltart: 00-73-4588ZXFGUFB DIRECTIVE DISCUSSIONADVANCE DIRECTIVE DISCUSSIONProMedica Defiance Regional Hospitaltart: 84-74-1240Fgwfchuwljyb Vaccine: 50+ (2 of 2 - PCV)Pneumococcal Vaccine: 50+ (2 of 2 - PCV)[facility]: 98-73-3378Funuefymzcnp Vaccine: 65+ (2 - PCV)Pneumococcal Vaccine: 65+ (2 - PCV)[facility]: 42-33-9830Kxssvlqexlhh Vaccine: 65+ (2 of 2 - PCV)Pneumococcal Vaccine: 65+ (2 of 2 - PCV)[facility]: 62-51-4838JISR DENSITYBONE DENSITYProMedica Defiance Regional Hospitaltart: 76-62-2053Yner Density ScreeningBone Density ScreeningProMedica Defiance Regional Hospitaltart: 75-44-1206Wguvnxdgtvpt Vaccine: 65+ Years (1 of 1 - PCV) Pneumococcal Vaccine: 65+ Years (1 of 1 - PCV)[facility] HealthcareStart: 2015 PNEUMOCOCCAL: 65+ (1 - PCV)PNEUMOCOCCAL: 65+ (1 - PCV)[facility]: 58-57-9516Ftmwvgltg for osteoporosisBone Density ScreeningProMedica Defiance Regional Hospitaltart: 27-67-3198LOB Vaccine (1 - 1-dose 60+ series)RSV Vaccine (1 - 1-dose 60+ series)[facility]: 29-94-9240QSD Vaccine (1 - Risk 60-74 years 1-dose series)RSV Vaccine (1 - Risk 60-74 years 1-dose series)[facility]: 59-46-6139ELDIBYXR VACCINE (1 of 2)SHINGRIX VACCINE (1 of 2)[facility] Start: 13-23-7102DLWQUMNJF (FIT-DNA)COLOGUARD (FIT-DNA)[facility]: 11-23-2834HhicnntmwnwLZDDZGQXVADIztzyodws ClinicStart: 03-45-6527YBMKKCXKEG CANCER SCREENINGCOLORECTAL CANCER SCREENINGProMedica Defiance Regional Hospitaltart: 13-27-8566QO COLONOGRAPHYCT COLONOGRAPHYProMedica Defiance Regional Hospitaltart: 73-99-9204HMOWM OCCULT BLOOD FECAL OCCULT BLOODProMedica Defiance Regional Hospitaltart: 98-55-7291Rjsgz 1996 panel - Serum or PlasmaLipid ScreeningProMedica Defiance Regional Hospitaltart: 73-71-6144Aaiym panelLipid Screening [facility]: 37-85-6230RNEEL SCREENLIPID SCREENProMedica Defiance Regional Hospitaltart: 62-16-3966Ivnpvhmgt for malignant neoplasm of colonProMedica Defiance Regional Hospitaltart: 93-07-7019CTBQVFKWPFPQRRDRXYRPHHLMTIBbplplcnv ClinicStart: 38-95-8920Nyziumvsomc [facility]: 82-87-8100Egcjdbcmq for malignant neoplasm of breast [facility]: 58-97-9169Jtlgr microalbumin profileSumma Health [facility] Campus Start: 48-40-6284HNNPBZ PCP TEAM CHRONIC DISEASE VISITANNUAL PCP TEAM CHRONIC DISEASE VISITProMedica Defiance Regional Hospitaltart: 21-29-6567RZ CONTROLLED (<130/80)BP CONTROLLED (<130/80)[facility]: 24-20-5843AIAGXHCVU C SCREENING HEPATITIS C SCREENINGProMedica Defiance Regional Hospitaltart: 11-15-2514Mtfzizzas C screening Hepatitis C ScreeningProMedica Defiance Regional Hospitaltart: 83-94-3986RALJC-19 VACCINE (#1) COVID-19 VACCINE (#1)[facility]tart: 15-17-5382Bmqbhexnh for malignant neoplasm of colonNOMS HealthcareBACH SCREENING TESTBACH SCREENING TEST Procedures Routine Memory loss Ordered: 01/04/2025[facility] Work Phone: comment on above:Ordered: 01/04/2025 End: 95-88-1734ZJR COMPLETEECG COMPLETE ECG Routine Chronic fatigue 1 Occurrences starting 07/23/2022 until 07/23/2023[facility] Work Phone: Comment on above:1 Occurrences starting 07/23/2022 until 07/23/2023ECG COMPLETEECG COMPLETE ECG Routine Sinus node dysfunction (HCC) Cardiac pacemaker in situ Bradycardia Ordered: 09/08/2023[facility] Work Phone: Comment on above:Ordered: 09/08/2023ECG COMPLETEECG COMPLETE ECG Routine Sinus node dysfunction (HCC) Ordered: [address] [place] [address] Work Phone: Comment on above:Ordered: 08/31/2024 End: 46-83-0577WqalozrcofsdixkqOLWW Cardiology Routine Sinus node dysfunction (HCC) 1 Occurrences starting 08/31/2024 until 5CBrecksville VA / Crille HospitalComment on above:1 Occurrences starting 08/31/2024 until 08/31/2025MG Breast - bilateral ScreeningPromedica Toledo HospitalMG Breast - bilateral Screening [facility] HospitalPatient EducationAdena P[facility] Work Phone: Patient referralAdena Pike [facility] Work Phone: Renal function 2000 panel - Serum or [facility] HospitalRenal function 1999 panel - Serum or [facility] HospitalRenal function 1999 panel - Serum or PlasmaPromedica Toledo HospitalRenal function 2000 panel - Serum or PlasmaPromedica Toledo HospitalUS Lower extremity vein - bilateralPromedica Toledo HospitalUS Lower extremity vein - rightLincoln County Health System Immunizations Immunization DateImmunizationNotesCare YcqehsiaUegrdinp55-06-2157jsbopbhat, high dose seasonal, preservative-freeDO Broderick Ball Work Phone: [facility]10-15-2024influenza virus vaccine, unspecified formulationNicsam Jones DO Work Phone: [facility] CampusIawvzf81-89-1287vbvqfgakl virus vaccine, unspecified formulationRanda Reilly MD Work Phone: [facility] CampusZfgrkm24-47-3635ttcojcilu virus vaccine, split virus (incl. purified surface antigen)[employer] Other [employer] Other 09-722469-82-3637hlkxxgvrx virus vaccine, unspecified formulationPromedica Toledo Hospital10-27-2021COVID-19 mRNA-1273 (Moderna)DO [employer] Work Phone: [facility]09-15-2021influenza virus vaccine, split virus (incl. purified surface antigen)Niki Blades Other [employer] Other 09-613689-98-3731oxxwjmdfx virus vaccine, unspecified formulationPromedica Toledo Hospital03-02-2021COVID-19 mRNA-1273 (Moderna)DO [employer] Work Phone: [facility]02-02-2021COVID-19 mRNA-1273 (Moderna)DO [employer] Work Phone: [facility]10-20-2020influenza virus vaccine, split virus (incl. purified surface antigen)Niki Blades Other iiyuma [employer] Other 10-233451-91-5234vbtagfgzj virus vaccine, unspecified formulationPromedica Toledo Hospital10-09-2019influenza virus vaccine, split virus (incl. purified surface antigen)Niki Blades Other [employer] Other 10248239-18-7057douttencq virus vaccine, unspecified formulationPromedica Toledo Hospital10-24-2018influenza virus vaccine, split virus (incl. purified surface antigen)Niki Blades Other [employer] Other 10-129060-61-3745glakyhiwi virus vaccine, unspecified formulationPromedica Toledo Hospital03-23-2018pneumococcal polysaccharide vaccine, 23 valentDeborah Blades Other [facility] Payers DatePayer CategoryPayerPolicy [id number]-pki [id number] 2025Medicare (Managed Care) [id number] 1.2.840.965551.1.13.159.2.7.3.261649.69402-57-3250FpgahvjGIYS0D .16.840.9.007423.78536708-72-1403Csjdlan Health InsuranceCIGNA CIGNA MEDICARE SUPPLEMENT [id number] 2015-[facility] [phone] [address] DEVI MERCEDES [phone] [id number] 2013Medicare 1.2.840.652849.1.13.159.2.7.3.941690.43176-54-6414DknnlzwGfgkan / [id number] [id number] 2.160.2.964214.747119 1960Medicare1HC4RH2NX80 2.16840.5.322145.4232-08-1950 Qgillam4933156 2.0.1.652668.3.579.2.09378-39-6201Nipwysr1215071 2.0.1.520134.3.579.2.38241-99-4522Xxmlryp0179405 2.840.1.480676.3.579.2.31703-40-3598N[place]0690354 2.840.1.489020.3.579.2.69013-12-9332Rnhtjsr5953363 2.840.1.526225.3.579.2.98403-72-8823Rxyrxka0796610 2.840.1.254782.3.579.2.15665-68-3207Thlezty6498810 2.16840.1.644229.3.579.2.02169-39-1415Bznxvpi8104662 2.16840.1.813564.3.579.2.31361-07-9498Ninytfe7498406 2.16840.1.688142.3.579.2.03110-07-6613Ssqgxye1003341 2.16840.1.466499.3.579.2.45142-77-7051Spxnlms1946755 2.16.840.1.213271.3.579.2.11874-37-7463Ndvplrk5963433 2.16.840.1.082730.3.579.2.85182-94-2173Dgmuxyv0996941 2.16840.1.418863.3.579.2.12931-22-2671Mgvmbxb8066077 2.16840.1.276448.3.579.2.60930-83-0309Xhwscte4488727 2.16840.1.547971.3.579.2.17079-20-5480Puvpzht4854217 2.840.1.756542.3.579.2.38917-00-8929Yzwipoa6965696 2.840.1.621557.3.579.2.94557-00-8325Wcpxqpl661845389 2.840.1.884913.3.579.2.80251-37-2757Cyqvwjj740704212 2.840.1.952995.3.579.2.04275-72-9147Cgxdsdd50445960 2.840.1.139898.3.579.2.31239-95-7282Ppssjab31872933 2.840.1.088114.3.579.2.52421-13-4597Jbpkwlv15773465 2.840.1.437764.3.579.2.47392-28-3764Lepzllf24739719 2.840.1.310207.3.579.2.48722-41-4049Qhdfpha12284511 2.840.1.997862.3.579.2.52353-86-5255Qmvivgq3081584 2.840.1.488679.3.579.2.445188-00-0436Qejjydj2603966 2.16.840.1.834109.3.579.2.065015-45-2303Ctmzork5218343 2.16.840.1.671303.3.579.2.401599-14-3231Xzicnnd1954406 2.16.840.1.403150.3.579.2.186335-78-7560Ojkylzp4992853 2..840.1.608105.3.579.2.751758-29-9208Nkytivc2131706 2..840.1.260959.3.579.2.499209-61-5785Vaxeyhm98262608 2..840.1.818664.3.579.2.20408-26-2685Gggcwai135963942 2..840.1.548256.3.5[id number] 2.16.840.1.618450.3.579.2.575Nubhuuv32631631 2.840.1.722393.3.579.2.531 Thjrkcs68227351 2.840.1.355284.3.579.2.531 Social History DateTypeDetailFacilityStart: 09-10-2022 End: 48-82-3205Vgh Assigned At BirthProMedica Defiance Regional Hospitaltart: 02-19-2011 End: 70-70-3012Dcitxpj smoking status NHISNever smoked tobaccoSumma Health [facility] Campus Start: 02-19-2011 End: 06-23-8752Ncvopjb use and exposureSmokeless tobacco non-userProMedica Defiance Regional Hospitaltart: 11-28-2021 End: 61-42-6726Qpicoii intakeCurrent non-drinker of alcohol (finding)[facility]tart: 95-26-7707Paj Assigned At BirthNot on fileProMedica Defiance Regional Hospitaltart: 07-13-2022 End: 24-41-8317Vtuyxvfr to SARS-CoV-2 (event)Not sureProMedica Defiance Regional Hospitaltart: 07-55-5915Nfh Assigned At BirthFeCleveland Clinic Akron General Lodi Hospitaltart: 09-10-2022 End: 87-92-4744Kcsvtha of Social functionProMedica Defiance Regional Hospitaltart: 93-53-0715Bdsrc Depression Screening Nczllfwjgc1Rnjlpssgs ClinicTobacco smoking statusNo Smoking Status EnteredBarney Children'S Medical Center Start: 11-17-2024 End: 71-65-4111YcnAfnldc (finding)[facility] Hospitaltart: 15-20-4927Ircirkayu beverage intakeCurrent drinker of alcohol (finding)[facility] Medical Equipment Procedure CodeEquipment CodeEquipment Original TextEquipment IdentifierDates Plate Bn 12mm Cmf Ti 2 H Lp - [id number]: 24-95-3712Cni Crss Sd Scr 1.5x4mm - [id number]: 79-10-4741Hhfvqqueo-A2dr01 Advisa [id number]_xsuDxdnt: 17-39-7974138370 5076 [employer] Novus [id number]: [id number] 5076 [employer] Novus [id number]_impStart: 05-22-2015 Goals DatePatient GoalDesired Activity/StatePersonal health goal Functional Status FntgNawgwdahjbKwyzhtZalgaiub48-03-2307Gqkzskfjkl StatusNoBarney Children'S Medical Center09-21-2023Functional statusPatient at BaselinePremier Health Miami [facility] Hospital North Work Phone: [phone] 545-37251588379-11-8546Snj you deaf, or do you have serious difficulty hearingNo 08/19/2015 11:02 AM Vita Elizondo (Rn) (Hist), RN No [facility] CampusSlocpa60-37-3895Wia you blind, or do you have serious difficulty seeing, even when wearing glassesNo 08/19/2015 11:02 AM Vita ElizondoRn) (Hist), RN NoCleveland Fwotck78-07-5963Br you have serious difficulty walking or climbing stairsNo 08/19/2015 11:02 AM Vita ElizondoRn) (Hist), RN No [facility] CampusHxanca74-94-9796Oe you have difficulty dressing or bathingYes 08/19/2015 11:02 AM Vita ElizondoRn) (Hist), RN YesSum[facility] [id number] of a physical, mental, or emotional condition, do you have difficulty doing errands alone such as visiting a physician's office or shopping Yes 08/19/2015 11:02 AM Vita ElizondoRn) (Hist), RN [facility] Mental Status Dhiq[id number] functionCognitive Status [facility] Work Phone: [phone] of a physical, mental, or emotional condition, do you have serious difficulty concentrating, remembering, or making decisionsNo 08/19/2015 11:02 AM Vita ElizondoRn) (Hist), RN [facility] Clinical Notes 01-24-2015 to 07-18-2025 Note Date & [id number] NoteHNO ID: [id number] Author: RANDA REILLY MD Service: ? Author Type: Physician Type: Progress Notes Filed: 07/18/2025 12:52 Note Text: PROGRESS NOTE- HEADACHE MEDICINE SERVICE DATE: July 18, 2025 Location: [facility] Participants: patient, and provider HPI: [...] with me or WENDY Randa Reilly MD [facility]rological [facility]09-03-2025 History of Present illness Narrative* Randa Reilly MD - 07/18/2025 10:24 AM EDT PROGRESS NOTE- HEADACHE MEDICINE SERVICE DATE: July 18, 2025 Location: [facility] Participants: patient, and provider [...] with me or WENDY Randa Reilly MD [facility] [place] * Lon Alexander RN - 07/18/2025 9:59 AM EDT Patient name and confirmed. Patient states she would like to receive Botox treatment today. 2 vials of Botox A (100 units in each) reconstituted with 2.2 cc of normal saline in each vial. Botox drawn up into four, 1 cc syringes. Each syringe containing 50 units of Botox. Assisted by: Robyn Blanc RN Botox, 2 vials: Lot # [id number] Exp 09/2027 Lot # [id number] Exp 09/[address] Reilly to administer and verified order. documented in this encounterSum[facility]09-03-2025 NoteHNO ID: [id number] Author: RANDA REILLY MD Service: ? Author [...] Injection Sites Muscle Fixed Site/Fixed Dose Bilat Reinstatement Clerk 20 U divided in 2 sites Procerus [...] wasted: 0 Randa Reilly MD [facility] Neurological [facility]09-03-2025 Procedure note* Randa Reilly MD - 07/18/2025 10:23 AM EDT BOTOX PROCEDURE NOTE UNIVERSAL PROTOCOL / [...] Injection Sites Muscle Fixed Site/Fixed Dose Bilat Reinstatement Clerk 20 U divided in 2 sites Procerus [...] Units wasted: 0 Randa Reilly MD [facility] Curtice [facility]09-03-2025 Procedure note* Randa Reilly MD - 07/18/2025 10:23 AM EDT BOTOX PROCEDURE NOTE UNIVERSAL PROTOCOL / [...] Injection Sites Muscle Fixed Site/Fixed Dose Bilat Reinstatement Clerk 20 U divided in 2 sites Procerus [...] wasted: 0 Randa Reilly MD [facility] [place] documented in this encounterSumma Health [facility]09-03-2025 NoteHNO ID: [id number] Author: LON ALEXANDER RN Service: ? Author [...] Blanc RN Botox, 2 vials: Lot # [id number] Exp 09/2027 Lot # [id number] Exp 09/[address] Reilly to administer and verified order.[facility] 07-02-2025 Evaluation note* Diagnosis Onset Date Resolution Status Admit Date Age-related osteoporosis without current pathological fracture acuteAugust 2024 2:50pmChronic kidney diseaseacuteAugust 2024 2:50pm Gastroesophageal reflux disease with esophagitis without hemorrhageacuteAugust 2024 2:50pmHistory of pancreatic canceracuteAugust 2024 2:50pm HypertensionacuteAugust 2024 2:50pmLumbar stenosis with neurogenic claudicationacuteAugust 2024 2:50pmMajor depressionacuteAugust 2024 2:50pmMedicare annual wellness visit, subsequentnoneactiveAugust 2024 2:50pmScreening mammogram for breast cancernoneactiveAugust 2024 2:50pm [facility] Work Phone: 1(880) 503-899608-18-2025 Evaluation note* Diagnosis Onset Date Resolution Status Admit Date Age-related osteoporosis without current pathological fracture acuteAugust 2024 2:50pmChronic kidney diseaseacuteAugust 2024 2:50pm Gastroesophageal reflux disease with esophagitis without hemorrhageacuteAugust 2024 2:50pmHistory of pancreatic canceracuteAugust 2024 2:50pm HypertensionacuteAugust 2024 2:50pmLumbar stenosis with neurogenic claudicationacuteAugust 2024 2:50pmMajor depressionacuteAugust 2024 2:50pmMedicare annual wellness visit, subsequentnoneactiveAugust 2024 2:50pmScreening mammogram for breast cancernoneactiveAugust 2024 2:50pm Anemia of renal diseaseacuteOctober 2024 9:36amBilateral lower extremity edemaacuteOctober 2024 9:36amCKD (chronic kidney disease) stage 4, GFR 15- 29 ml/minacuteOctober 2024 9:36amHypertensive chronic kidney disease with stage 1 through stage 4 chronic kiacuteOctober 2024 9:36amSecondary hyperparathyroidismacuteOctober 2024 9:36am [facility] Work Phone: 1(622) 779-125608-18-2025 Evaluation note* Diagnosis Onset Date Resolution Status Admit Date Age-related osteoporosis without current pathological fracture acuteAugust 2024 2:50pmChronic kidney diseaseacuteAugust 2024 2:50pm Gastroesophageal reflux disease with esophagitis without hemorrhageacuteAugust 2024 2:50pmHistory of pancreatic canceracuteAugust 2024 2:50pm HypertensionacuteAugust 2024 2:50pmLumbar stenosis with neurogenic claudicationacuteAugust 2024 2:50pmMajor depressionacuteAugust 2024 2:50pmMedicare annual wellness visit, subsequentnoneactiveAugust 2024 2:50pmScreening mammogram for breast cancernoneactiveAugust 2024 2:50pm Anemia of renal diseaseacuteOctober 2024 9:36amCKD (chronic kidney disease) stage 4, GFR 15-29 ml/minacuteOctober 2024 9:36amGERD (gastroesophageal reflux disease)acuteOctober 2024 9:36amHypertensive chronic kidney disease with stage 1 through stage 4 chronic kiacuteOctober 2024 9:36amSecondary hyperparathyroidismacuteOctober 2024 9:36amNauseaacuteOctober 2024 9:35am [facility] Work Phone: 1(335) 841-817007-07-2025 Instructions* Patient Instructions* Jyoti Crowley MD - [...] much intensity you could go. Source : www.Semant.io.Geliyoo Dietary Modifications: Increase the amount of vegetables [...] high glycemic index: instant rice, mashed potatoes, American fries bagels, baguettes, vanilla wafers processed cereals (Cheerios, [place]-Puffs, corn/bran flakes, Total, etc.) Avoid foods high in total fat, especially saturated fats and cholesterol Eat foods rich in [place]-3 fatty acids (fish, olive oil, nuts) For More Information on the Mediterranean and the MIND Diet Visit: https://www.deena.nih.gov/health/al yqbewirc-tyq-mfkjvlnl/reru-hg-ms-rddl-mzsun-xswh-kfe-uufckpkyqc-yyeadgdevo-disea se Source : [employer].Geliyoo Memory Workouts: In some studies, participation in [...] a Musical Instrument Dancing (ballroom) Computer Games/Apps: [employer] or [employer] phone application Tasks to improve attention/working memory: [...] et al. The Lancet, Volume 396, Issue 13972, [phone] Patient Education Section : Fall Prevention As [...] include walking, swimming, and Panda Chi (a Latvian martial art that involves slow, gentle movements). [...] your health and independence. documented in this encounterSumma Health [facility] Campus07-07-2025 NoteHNO ID: [id number] Author: KALIN GUAMAN OCCA Service: ? Author Type: Fruit Thinner Machine Operator Type: Progress Notes Filed: 05/21/2025 08:04 Note Text: Cassi Rodrigez is a 75 year old year old left handed woman Accompanied by: spouse. 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 Vital Signs: There were no vitals taken for this visit.[facility]07-07-2025 History of Present illness Narrative* Kalin Guaman OCCA - 05/21/2025 8:03 AM EDT Cassi Rodrigez is a 75 year old year old left handed woman Accompanied by: spouse. 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 Vital Signs: There were no vitals taken for this visit. * Elian Jones DO - 05/21/2025 8:00 AM EDT Images from the original note were not included. [facility] New Patient Evaluation Cassi Rodrigez [...] She was advised to follow up at [facility] for further evaluation of her memory concerns. [...] Version 7.1 Total Score: 27/30 Visuospatial/Executive Alternating [place] Making: Patient successfully draws the pattern without [...] recalled (+1) Word 3: Required multiple choice- 'mu-ism, school, hospital' (0) Word 4: Required category cue- 'type of flower' (0) Word 5: Required category cue- 'a color' (0) Delayed Recall Score: 25 MIS Scoring Number of words recalled spontaneously: [...] which included preparing to see the patient, djbt-sk-lnuc patient care, performing a medically appropriate examination, [...] 05/23/2025 Time: 2:35 PM documented in this encounterSumma Health [facility]ton Campus07-07-2025 NoteHNO ID: [id number] Author: ELIAN JONES DO Service: ? Author Type: Physician Type: Progress Notes Filed: 05/23/2025 14:36 Note Text: Regina Herrera [facility] New Patient Evaluation Cassi Rodrigez : 1950 05/21/2025 8:00 AM Chief Complaint: memory concern I had the pleasure of seeing this 75 year old year old female at the [facility]. The patient is referred by [...] She was advised to follow up at [facility] for further evaluation of her memory concerns. [...] medication for their flor (more content not included)...[facility]05-27-2025 NoteHNO ID: [id number] Author: RANDA REILLY MD Service: ? Author [...] Injection Sites Muscle Fixed Site/Fixed Dose Bilat Reinstatement Clerk 20 U divided in 2 sites Procerus [...] Total Units wasted: 0 Randa Reilly MD [facility]05-27-2025 Procedure note* Randa Reilly MD [...] Injection Sites Muscle Fixed Site/Fixed Dose Bilat Reinstatement Clerk 20 U divided in 2 sites Procerus [...] Units wasted: 0 Randa Reilly MD [facility]05-27-2025 Procedure note* Randa Reilly MD - 04/10/2025 [...] Injection Sites Muscle Fixed Site/Fixed Dose Bilat Reinstatement Clerk 20 U divided in 2 sites Procerus [...] Units wasted: 0 Randa Reilly MD [facility] documented in this encounterSumma Health Barberton Campus05-27-2025 NoteHNO ID: [id number] Author: LON ALEXANDER RN Service: ? Author [...] Farfan RN Botox, 2 vials: Lot # [id number] Exp 08/2027 Lot # [id number] Exp 08/[address] Reilly to administer and verified order.[facility] 04-10-2025 History of Present illness Narrative* [...] Farfan RN Botox, 2 vials: Lot # [id number] 08/2027 Lot # [id number] Exp 08/[address] Reilly to administer and verified order. * Randa Reilly MD - 04/10/2025 11:20 AM EDT PROGRESS NOTE- [facility]ACHE MEDICINE SERVICE DATE: April 10, 2025 Location: [facility] [place] Participants: patient, and provider HPI: Here for [...] disease) HTN (hypertension) IBS (irritable bowel syndrome) SHLEL (obstructive sleep apnea) Reflux Right leg DVT [...] me or WENDY Randa Reilly MD [facility] [place] documented in this encounterSumma Health Barberton Campus05-27-2025 NoteHNO ID: [id number] Author: RANDA REILLY MD Service: ? Author Type: Physician Type: Progress Notes Filed: 04/10/2025 12:19 Note Text: PROGRESS NOTE- HEADACHE MEDICINE SERVICE DATE: April 10, 2025 Location: [facility] Participants: patient, and provider HPI: [...] with me or WENDY Randa Reilly MD [facility]02-21-2025 NoteHNO ID: [id number] Author: DAVINA BRENNAN RN Service: ? Author [...] Hamm RN Botox, 2 vials: Lot # [id number] Exp 02/2027 Lot # [id number] Exp 02/2027 Botox handed to Svitlana Mayfield CNP to administer and verified order.[id number] History of Present illness Narrative* Davina Brennan [...] Hamm RN Botox, 2 vials: Lot # [id number] Exp 02/2027 Lot # [id number] Exp 02/2027 Botox handed to Svitlana Mayfield CNP to administer and verified order. * Svitlana Mayfield APRN.[place] TRAFFIC CONTROLLER - 01/05/2025 11:42 AM EST Follow-Up Onabotulinum [...] for migraine Informed Consent Consent Obtained: Written [place] Protocol A moment to CARE was completed [...] applicable Written Consent Obtained: Written LOT #: [id number] Expiration Date: Month: Year: 2026 Second vial: LOT #: [id number] Expiration Date: Month: Year: 2026 Injection Sites Left (Units) Left (Sites) Right (Units) Right (Sites) TOTAL (Units) Reinstatement Clerk 5 1 5 1 10 Procerus Units: [...] which included preparing to see the patient, lgmf-nk-vjls patient care, completing clinical documentation, obtaining and/or reviewing separately obtained history, counseling and educating the patient/family/caregiver, and ordering medications, tests, or procedures. Svitlana Mayfield APRN.CNP documented in this encounterSumma Health Barberton Campus02-21-2025 Instructions* Patient Instructions* Svitlana Mayfield APRN.CNP - [...] your next Botox Injection documented in this encounterSumma Health [facility]ton Campus02-21-2025 NoteHNO ID: [id number] Author: SVITLANA MAYFIELD APRN.NIC Service: ? Author Type: Nurse Practitioner Type: [...] days/month: 0 (0 headache-free hours) Migraine severity: 05/24 Patient reduction in overall migraine days: No [...] for migraine Informed Consent Consent Obtained: Written [place] Protocol A moment to CARE was completed [...] applicable Written Consent Obtained: Written LOT #: [id number] Expiration Date: Month: Year: 2026 Second vial: LOT #: [id number] Expiration Date: Month: Year: 2026 Injection Sites Left (Units) Left (Sites) Right (Units) Right (Sites) TOTAL (Units) Reinstatement Clerk 5 1 5 1 10 Procerus Units: [...] no evidence of procedural (more content not included)...[id number] History of Present illness Narrative* Alejandro Villar MD, PhD - 01/04/2025 2:00 PM EST [facility] Patient Name: Cassi Rodrigez Date of : 1950 ESTABLISHED EPILEPSY CLINIC NOTE 01/04/2025 2:00 PM Reason for Visit: Follow Up Clinical Summary: Ms. Rodrigez is a 74 year old right-handed female seen in [facility]. There is no one accompanying [...] - Seizure risk factors: Brain Tumor No ENGINEER TECHNICAL STAFF Infections No Developmental Delay No Family history [...] - 1.02 mg/dL 1.60 High TBH EGFR-AF GAMBIAN >=60 38 Low TBH EGFR-NON AF GAMBIAN >=60 32 Low BUN CREATININE RATIO 15.0 [...] Ocular Disease Other SOCIAL HISTORY: -Lives in [place], [place] -Patient lives alone? -Vocation: -Education: -Cigarette, [...] which included: preparing to see the patient kkvl-lo-mcss patient care completing clinical documentation obtaining and/or reviewing separately obtained history counseling and educating the patient/family/caregiver ordering medications, tests, or procedures independently interpreting results (not separately reported) communicating results to the patient/family/caregiver Alejandro Villar MD, PhD cc: Primary Care Physician: Broderick Howard DO [address] [address] Referring: Patient: Ms. Cassi Rodrigez [address] [address] documented in this encounterSumma Health Barberton Campus02-20-2025 NoteHNO ID: [id number] Author: ALEJANDRO VILLAR MD, PhD Service: ? Author Type: Physician Type: Progress Notes Filed: 01/04/2025 14:17 Note Text: [facility] Patient Name: Cassi Rodrigez Date of : 1950 ESTABLISHED EPILEPSY CLINIC NOTE 01/04/2025 2:00 PM Reason for Visit: Follow Up Clinical Summary: Ms. Rodrigez is a 74 year old right-handed female seen in [facility]. There is no one accompanying [...] - Seizure risk factors: Brain Tumor No ENGINEER TECHNICAL STAFF Infections No Developmental Delay No Family history [...] mg/dL 103 BLOOD UREA (more content not included)...[facility] HospitalCtbehcct87-98-0946 History of Present illness Narrative* Aftab Dey DO - 12/13/2024 3:15 PM EST Images [...] DSD until it heals documented in this encounterNortheast Regional Medical CenterYziefqraxo99-27-6899 Telephone encounter Note* Telephone Encounter - Alexi Colindres PA-C - 12/11/2024 1:30 PM EST The following approved medication requests have been transmitted electronically. Requested Prescriptions Signed Prescriptions Disp Refills zonisamide (ZONEGRAN) 100 mg capsule 270 capsule 1 Sig: Take 3 capsules by mouth daily at bedtime. Authorizing Provider: ALEXI COLINDRES PA-C [facility]01-27-2025 Miscellaneous Notes* Telephone Encounter - Alexi Colindres [...] by: patient Please E-Scribe Caller Contact Number: [phone] (home) Pharmacy Name: [facility] Pharmacy Number: [phone] Generic/ brand: generic 30 or 90 day supply requested: 90 Last appointment: 06/29/24 Next Appointment: 01/04/[address] guido Rodrigez [id number] [facility] [address] documented in this encounterSumma Health Barberton Campus01-27-2025 Telephone encounter Note * Telephone Encounter - Maranda Moreno - 12/11/2024 10:27 AM EST Prescription Refill: Requested by: patient Please E-Scribe Caller Contact Number: [phone] (home) Pharmacy Name: [facility] Pharmacy Number: [id number] Generic/ brand: generic 30 or 90 day supply requested: 90 Last appointment: 06/29/24 Next Appointment: 01/04/[address] guido Rodrigez [id number] [facility] [address] [facility]01-15-2025 History of Present illness Narrative* Aftab Dey [...] DAY DIRECTED ergocalciferol (Vitamin D2) 1.25 MG (22576 UT) capsule TAKE 1 CAPSULE BY MOUTH [...] A-V CARDIAC PACEMAKER INSERTION APPENDECTOMY BRAIN SURGERY 2015 FOR EPILEPTIC SEIZURES CERVICAL SPINE SURGERY X3 CHOLECYSTECTOMY EYE SURGERY 2023 LUMBAR SPINE SURGERY X3 ROTATOR CUFF REPAIR Left 2021 LT RCR-DR VELASQUEZ WHIPPLE PROCEDURE W/ LAPAROSCOPY 2010 FOR PACREATIC CANCER FAMILY HISTORY Family History Problem Relation Name Age of Onset Liver cancer Father Scottie Andujar Cancer Father Scottie Andujar Breast cancer Sister Cancer Brother Federico Andujar Cancer Sister Edna Tobar REVIEW OF SYMPTOMS: Review of Systems [...] I'll see her PRN documented in this encounterNortheast Regional Medical CenterZvscdchlvh95-76-4814 Radiology Diagnostic study [facility] [place] [address] [place] [address] CT Scan Report Signed Patient: Cassi Rodrigez MR#: [id number] : 1950 Acct:[id number] Age/Sex: 74 / F ADM Date: 5 Loc: ER Room: Type: [facility] ER Attending Dr: Copies to: Kristel [...] Arnel Simon M.D.11/24/2024 3:48 PM Dictation Location: [address] [place] [address] Transcribed By: [facility] 11/24/24 154 Dictated By: Arnel Simon II, MD 11/24/24 1538 Signed By: 11/24/24 1548 [facility] Work Phone: 1(757) 358-114901-10-2025 Evaluation note* Diagnosis Onset Date Resolution Status Admit Date Adverse effect of anticoagulant antagoni sts, vitamin k and other coagulants acuteJanuary 2024 10:35amCellulitisacuteJanuary 2024 10:35amAbscess of abdominal walldeletedJanuary 2024 10:35amAdverse effect of anticoagulant antagonists, vitamin k and other coagulantsacuteJanuary 2024 10:54amCellulitisacuteJanuary 2024 10:54amAbdominal hematomainactive Naomy 2024 10:54amAdverse effect of anticoagulant antagonists, vitamin k and other coagulantsacuteJanuary 2024 9:51amBlister (nonthermal) of abdominal wall, initial encounteracuteJanuary 2024 9:51amHematoma of abdominal wallacuteJanuary 2024 9:51amBilateral lower extremity edemaacute February 21, 2025 1:49pmHistory of DVT (deep vein thrombosis)acuteApril 2024 1:49pm [facility] Work Phone: 1(617) 979-425501-10-2025 Evaluation note* Diagnosis Onset Date Resolution Status Admit Date Adverse effect of anticoagulant antagoni sts, vitamin k and other coagulants acuteJanuary 2024 10:35amCellulitisacuteJanuary 2024 10:35amAbscess of abdominal walldeletedJanuary 2024 10:35amAdverse effect of anticoagulant antagonists, vitamin k and other coagulantsacuteJanuary 2024 10:54amCellulitisacuteJanuary 2024 10:54amAbdominal hematomainactive November 28, 2024 10:54amAdverse effect of anticoagulant antagonists, vitamin k and other coagulantsacuteJanuary 2024 9:51amBlister (nonthermal) of abdominal wall, initial encounteracuteJanuary 2024 9:51amHematoma of abdominal wallacuteJanuary 2024 9:51amBilateral lower extremity edemaacute February 21, 2025 1:49pmHistory of DVT (deep vein thrombosis)acuteApril 2024 1:49pmAnemia of renal diseaseacuteApril 2024 10:30amBilateral lower extremity edemaacuteApril 2024 10:30amCKD (chronic kidney disease) stage 4, GFR 15-29 ml/minacuteApril 2024 10:30amHypertensive chronic kidney disease with stage 1 through stage 4 chronic kiacuteApril 2024 10:30am Secondary hyperparathyroidismacuteApril 2024 10:30am [facility] Work Phone: 1(577) 872-557612-30-2024 NoteProgress Note-Physician Patient: CASSI RODRIGEZ Age: 74 [...] to Ambulatory Surgery Unit, and To home ).[facility] CenterComment on above:Result Comment: Electronically Signed By: Sunny Ramirez Jr., DO\.br\Date and Time Signed: 11/13/24 07:01 [id number] NoteDischarge Summary Patient: CASSI RODRIGEZ Age: 74 [...] history of other venous thrombosis and embolism jail (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 of anticoagulants Epilepsy, unspecified, not [...] mmHg (NOV 03:) DBP 68 mmHg (NOV 03)[facility] Medical CenterComment on above:Result Comment: Electronically Signed By: Ap PAUL, Shashi Barragan\.br\Date and Time Signed: 11/03/24 18:13 [id number] Hospital Discharge instructions Patient Education 11/03/2024 14:55:59 [...] sitting in a recliner chair. Only take mivf-flw-ehdghux or prescription medicines for pain, discomfort, or [...] Document Reviewed: 11/01/2006 ExitCare Patient Information 2013 [employer]. Follow Up Care 10/19/2024 10:52:05 With:BRODERICK HOWARD Address: [address] [place] [address]- Business (1) When: Unknown Comments:No need to see PCP at this time unless symptoms worsen. With:Shashi De Souza Address: [address], [address] [place] [phone] Business (1) When: Unknown Comments:f/u3wks ok shower and remove dressing jlpki79qql no lift>5lbs keep incis dry clean. restart coumadin 3 days after surgery. 11-05-24Wednesday. [facility] [id number] NotePatient Education - Text Lumbar Laminectomy Care [...] in a recliner chair. ? Only take abtg-fob-dumqtqc or prescription medicines for pain, discomfort, or [...] Document Reviewed: 11/01/2006 ExitCare? Patient Information ?2012 [employer].[facility] 11-03-2024 Evaluation + Plan noteExtracted from:Title:Discharge SummaryAuthor: Shashi De Souza MD BDate:11/03/24 Discharge Information Discharge Summary Information: Admit Date/Time: 11/02/24 10:13Discharge Date/Time: 11/03/24 18:13 Admitting Physician: Shashi De Souza MD Referring Physician for Admission: Shashi De Souza MD Consulting Physicians: Dar NUNEZ MD Admitting Diagnoses: Discharge Diagnoses: Essential (primary) hypertension Presence of cardiac pacemaker Personal history of other venous thrombosis and embolism 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 Lumbar stenosis (M48.061: Spinal stenosis, lumbar [...] hold for neuro spine surgery, patient has jwhho-tpq-mtvu compression hose and SCDs Enoxaparin 40 mg daily per surgeon for now 5. Anticoagulated (Z79.01: jail (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 of anticoagulants) Warfarin prior to [...] Lovenox Bridge/Coumadin restart as per surgeon. Extracted from:Title:Consult NoteAuthor:Katarzyna Frost CNP LDate: 11/02/24 1. Lumbar stenosis (M48.061: Spinal stenosis, lumbar [...] hold for neuro spine surgery, patient has pvkmi-bus-waww compression hose and SCDs Enoxaparin 40 mg daily per surgeon for now 5. Anticoagulated (Z79.01: jail (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 of anticoagulants) Warfarin prior to [...] service available for any acute needs/questions. Extracted from:Title:ANES Pre-operative Note uthor:Thomas PAUL, Jaun Daniel.Date: 11/02/24 Plan [place] [employer] Anesthesiologists (ASA) physical status classification: Class III. Anesthetic Preoperative Plan: Anesthesia General. Diagnostic Tests Pending * Calcium Level Ionized 11/03/24 [facility] 12-20-2024 NoteProgress Note-Physician Basic Information [...] hold for neuro spine surgery, patient has lldir-wzq-yjgp compression hose and SCDs Enoxaparin 40 mg daily per surgeon for now 5. 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 Pt. with on AM-PAC this date. She is safe and independent with all functional activities at this time. No further PT needs.[facility]12-19-2024 NoteConsultation Note Reason for Consultation [...] hold for neuro spine surgery, patient has xjstw-nnv-cqqw compression hose and SCDs Enoxaparin 40 mg daily per surgeon for now 5. 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 Device stated it transmitted properly.[facility] 11-02-2024 NoteProgress Note-Physician Patient: CASSI RODRIGEZ Age: 74 years Sex: Female : 1950 Associated Diagnoses: None Author: Thomas PAUL, Jaun Reese Preoperative Information Anesthesia Preop Info: Time patient [...] All Problems Acute asthma / SNOMED CT 7099498005 / Confirmed Bradycardia / SNOMED CT 64843793 / Confirmed Cardiac pacemaker / SNOMED CT 5399107390 / Confirmed Epilepsy / SNOMED CT 611069346 / Confirmed High blood pressure / SNOMED CT 6754631585 / Confirmed History of DVT of lower extremity / SNOMED CT 8789302144 / Confirmed Migraines / SNOMED CT 68587352 / Confirmed Obstructive sleep apnea / SNOMED CT 886115353 / Confirmed Pancreatic cancer / SNOMED CT 151421915 / Confirmed Presence of IVC filter / SNOMED CT 7975614220 / Confirmed, Active Problems (10) Acute asthma Bradycardia Cardiac pacemaker Epilepsy High blood pressure History of DVT of lower extremity Migraines Obstructive sleep apnea Pancreatic cancer Presence of IVC filter , anesthesia summary- obesity, HTN, godfrey/PM, SHELL, mild asthma, remote treatment for pancreatic cancer, controlled siezures, RI, controlld GERD, hx DVT s/p IVCF on chronic anticoagulation, c-spine dz Histori (more content not included)...[facility] CenterComment on above:Result Comment: Electronically Signed By: Thomas PAUL, Jaun Reese\.br\Date and Time Signed: 11/02/24 13:45 [id number] Evaluation note* Diagnosis Onset Date Resolution Status Admit Date Chronic kidney disease acuteDeceer 2023 8:49amGastroesophageal reflux disease with esophagitis without hemorrhageacuteDecember 2023 8:49amHistory of DVT (deep vein thrombosis)acuteDeceer 2023 8:49amHypertensionacuteDecember 2023 8:49amLumbar stenosis with neurogenic claudicationacuteDeceer 2023 8:49amMajor depressionacuteDeceer 2023 8:49amPreop exam for internal medicinenoneactiveDeceer 2023 8:49amAdverse effect of anticoagulant antagonists, vitamin k and other coagulantsacuteJanuary 2024 1:36pmBruising at injection siteacuteJanuary 2024 1:36pmCellulitisacuteJanuary 2024 1:36pmAdverse effect of anticoagulant antagonists, vitamin k and other coagulantsacuteJanuary 2024 10:35amCellulitisacuteJanuary 2024 10:35amAbscess of abdominal walldeletedJanuary 2024 10:35amAdverse effect of anticoagulant antagonists, vitamin k and other coagulantsacuteJanuary 2024 10:54amCellulitisacuteJanuary 2024 10:54amAbdominal hematomainactive Naomy 2024 10:54amAdverse effect of anticoagulant antagonists, vitamin k and other coagulantsacuteJanuary 2024 9:51amCellulitisacuteJanuary 2024 9:51am [facility] Work Phone: [phone] 300-798110-22-2024 NoteHNO ID: [id number] Author: RANDA REILLY MD Service: ? Author [...] Injection Sites Muscle Fixed Site/Fixed Dose Bilat Reinstatement Clerk 20 U divided in 2 sites Procerus [...] Total Units wasted: 0 Randa Reilly MD [facility]10-22-2024 Procedure note* Randa Reilly MD [...] Injection Sites Muscle Fixed Site/Fixed Dose Bilat Reinstatement Clerk 20 U divided in 2 sites Procerus [...] Units wasted: 0 Randa Reilly MD [facility]10-22-2024 Procedure note* Randa Reilly MD - 09/05/2024 [...] Injection Sites Muscle Fixed Site/Fixed Dose Bilat Reinstatement Clerk 20 U divided in 2 sites Procerus [...] Units wasted: 0 Randa Reilly MD [facility] documented in this encounterSumma Health [facility]10-22-2024 NoteHNO ID: [id number] Author: RANDA REILLY MD Service: ? Author Type: Physician Type: Progress Notes Filed: 09/05/2024 13:54 Note Text: PROGRESS NOTE- [facility] SERV[facility] DATE: September 05, 2024 Location: [facility] Participants: patient, and provider HPI: [...] 3.Referral to sleep medicine Randa Reilly MD [facility]10-22-2024 History of Present illness Narrative* Randa Reilly MD - 09/05/2024 1:49 PM EDT PROGRESS NOTE- [facility] SERVICE DATE: September 05, 2024 Location: [facility] Participants: patient, and provider HPI: [...] 3.Referral to sleep medicine Randa Reilly MD [facility] documented in this encounterSumma Health [facility]10-22-2024 Nurse Note* Davina Brennan RN - 09/05/2024 [...] Jewell RN Botox, 2 vials: Lot # [id number] Exp 10/2026 Lot # [id number] Exp 10/[address] Reilly to administer and verified order. [facility]10-22-2024 Nurse Note* Davina Brennan RN - 09/05/2024 [...] Jewell RN Botox, 2 vials: Lot # [id number] Exp 10/2026 Lot # [id number] Exp 10/[address] Reilly to administer and verified order. documented in this encounterSumma Health [facility]10-17-2024 NoteHNO ID: [id number] Author: KITTY VALENTE MD Service: ? Author Type: Physician Type: Progress Notes Filed: 09/02/2024 00:42 Note Text: [facility] Renteria Department of Cardiovascular Medicine SECTION OF CARDIAC PACING and ELECTROPHYSIOLOGY OUTPATIENT VISIT DATE NASRIN July 23, 2022 August 31, 2024 OUTPATIENT VISIT TYPE ESTABLISHED PRIMARY CARE PHYSICIAN: Broderick Howard MD ([facility]) [address] [place] [address] CHIEF COMPLAINT: Pacemaker management HISTORY OF PRESENT [...] antiepileptic Rx - well (more content not included)...[facility] 08-31-2024 History of Present illness Narrative* Kitty Valente MD - 08/31/2024 10:04 AM EDT Images from the original note were not included. [facility] Department of Cardiovascular Medicine SECTION OF CARDIAC PACING and ELECTROPHYSIOLOGY OUTPATIENT VISIT DATE NASRIN July 23, 2022 August 31, 2024 OUTPATIENT VISIT TYPE ESTABLISHED PRIMARY CARE PHYSICIAN: Broderick Howard MD ([facility]) [address] [place] [address] CHIEF COMPLAINT: Pacemaker management HISTORY OF PRESENT [...] of Cardiovascular Medicine Heart, Vascular and Thoracic [facility] Office Office Pager [phone] August 31, 2024 10:18 AM documented in this encounterSumma Health [facility]10-16-2024 Evaluation note* Diagnosis Onset Date Resolution Status Admit Date History of DVT (deep vein thrombosis) acuteOctober 2023 3:20pmHypertensionacuteOctober 2023 3:20pmSwelling of right lower extremityacuteOctober 2023 3:20pmAnemia of renal disease acuteOct2023 9:09amCKD (chronic kidney disease) stage 4, GFR 15-29 ml/minacuteOctober 2023 9:09amHypertensive chronic kidney disease with stage 1 through stage 4 chronic kiacuteOct2023 9:09amSecondary hyperparathyroidismacuteOct2023 9:09amChronic kidney diseaseacute October 27, 2024 8:49amGastroesophageal reflux disease with esophagitis without hemorrhageacuteDecember 2023 8:49amHistory of DVT (deep vein thrombosis)acutecemb2023 8:49amHypertensionacuteDecember 2023 8:49amLumbar stenosis with neurogenic claudicationacuteDecember 2023 8:49amMajor depressionacuteceer 2023 8:49amPreop exam for internal medicinenoneactiveDeceer 2023 8:49amAdverse effect of anticoagulant antagonists, vitamin k and other coagulantsacuteJanuary 2024 1:36pmBruising at injection siteacuteJanuary 2024 1:36pmCellulitisacuteJanuary 2024 1:36pmAbscess of abdominal wallacuteJanuary 2024 10:35amAdverse effect of anticoagulant antagonists, vitamin k and other coagulantsacuteJanuary 2024 10:35amCellulitisacuteJanuary 2024 10:35amAbdominal hematomaacuteJanuary 2024 10:54amAdverse effect of anticoagulant antagonists, vitamin k and other coagulantsacuteJanuary 2024 10:54amCellulitisacuteJanuary 2024 10:54am [facility] Work Phone: 1(336) 437-101610-15-2024 Evaluation note* Diagnosis Onset Date Resolution Status Admit Date Constipation acuteOctober 2023 10:43amGERD (gastroesophageal reflux disease)acute August 29, 2024 10:43amNauseaacuteOctober 2023 10:43amPancreatic cancer acuteOctober 2023 10:43amHistory of DVT (deep vein thrombosis)acuteOctober 2023 3:20pmHypertensionacuteOctober 2023 3:20pmSwelling of right lower extremityacuteOctober 2023 3:20pmAnemia of renal diseaseacuteOctober 2023 9:09amCKD (chronic kidney disease) stage 4, GFR 15-29 ml/minacute September 07, 2024 9:09amHypertensive chronic kidney disease with stage 1 through stage 4 chronic kiacuteOctober 2023 9:09amSecondary hyperparathyroidismacuteOctober 2023 9:09amChronic kidney diseaseacute October 27, 2024 8:49amGastroesophageal reflux disease with esophagitis without hemorrhageacuteDecember 2023 8:49amHistory of DVT (deep vein thrombosis)acuteDecember 2023 8:49amHypertensionacuteDecember 2023 8:49amLumbar stenosis with neurogenic claudicationacuteDecember 2023 8:49amMajor depressionacuteDeceer 2023 8:49amPreop exam for internal medicinenoneactiveDeceer 2023 8:49am [facility] Work Phone: 1(750) 600-429410-15-2024 Evaluation note* Diagnosis Onset Date Resolution Status Admit Date Constipation acuteOctober 2023 10:43amGERD (gastroesophageal reflux disease)acute August 29, 2024 10:43amNauseaacuteOctober 2023 10:43amPancreatic cancer acuteOctober 2023 10:43amHistory of DVT (deep vein thrombosis)acuteOctober 2023 3:20pmHypertensionacuteOctober 2023 3:20pmSwelling of right lower extremityacuteOctober 2023 3:20pmAnemia of renal diseaseacuteOctober 2023 9:09amCKD (chronic kidney disease) stage 4, GFR 15-29 ml/minacute September 07, 2024 9:09amHypertensive chronic kidney disease with stage 1 through stage 4 chronic kiacuteOctober 2023 9:09amSecondary hyperparathyroidismacuteOctober 2023 9:09amChronic kidney diseaseacute October 27, 2024 8:49amGastroesophageal reflux disease with esophagitis without hemorrhageacuteDeceer 2023 8:49amHistory of DVT (deep vein thrombosis)acuteDeceer 2023 8:49amHypertensionacuteDeceer 2023 8:49amLumbar stenosis with neurogenic claudicationacuteDeceer 2023 8:49amMajor depressionacuteDeceer 2023 8:49amPreop exam for internal medicinenoneactiveDeceer 2023 8:49amAdverse effect of anticoagulant antagonists, vitamin k and other coagulantsacuteJanuary 2024 1:36pmBruising at injection siteacuteJanuary 2024 1:36pmCellulitisacuteJanuary 2024 1:36pmAbscess of abdominal wallacuteJanuary 2024 10:35amAdverse effect of anticoagulant antagonists, vitamin k and other coagulantsacuteJanuary 2024 10:35amCellulitisacuteJanuary 2024 10:35am [facility] Work Phone: 1(694) 568-461208-15-2024 History of Present illness Narrative* Alejandro Villar MD, PhD - 06/29/2024 2:41 PM EDT [facility] Patient Name: Cassi Rodrigez Date of : 1950 ESTABLISHED EPILEPSY CLINIC NOTE 06/29/2024 1:00 PM Reason for Visit: Epilepsy Clinical Summary: Ms. Rodrigez is a 74 year old female seen in [facility]. Classification Summary HISTORY OF PRESENT [...] s/p lumbar laminectomy in 07/2023. At 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 At [facility] in Dec 2023, ZNS was [...] which included: preparing to see the patient [id number] patient care completing clinical documentation obtaining and/or reviewing separately obtained history performing a medically appropriate examination Alejandro Villar MD, PhD cc: Primary Care Physician: Broderick Howard, [address] [address] Referring: Patient: Ms. Cassi Rodrigez [id number] [place] [address] documented in this encounterSumma Health [facility]07-09-2024 Nurse Note* Tomasa Farfan RN - 05/23/2024 [...] Lon VARELA Botox, 2 vials: Lot # [id number] Exp Lot # [id number] Botox handed to Dr. Reilly to administer and verified order. [facility]07-09-2024 Nurse Note* Tomasa Farfan RN - 05/23/2024 [...] by: Lon Adamsox, 2 vials: Lot # [id number] Exp Lot # [id number] Botox handed to Dr. Reilly to administer and verified order. documented in this encounterSumma Health [facility]07-09-2024 Procedure note* Randa Reilly MD - 05/23/2024 [...] Injection Sites Muscle Fixed Site/Fixed Dose Bilat Reinstatement Clerk 20 U divided in 2 sites Procerus [...] wasted: 0 Randa Reilly MD [facility]07-09-2024 Procedure note* Randa Reilly MD - 05/23/2024 [...] Injection Sites Muscle Fixed Site/Fixed Dose Bilat Reinstatement Clerk 20 U divided in 2 sites Procerus [...] Units wasted: 0 Randa Reilly MD [facility] documented in this encounterSumma Health [facility]05-01-2024 NoteDUAL CHAMBER PACEMAKER REMOTE EVALUATION: PRESENTING EGM: [...] under CARDIAC DATA AND REPORT, Scanned Documents section.[id number] History of Present illness Narrative* Randa Reilly MD - 03/07/2024 9:30 AM EDT PROGRESS NOTE- [facility]IC[facility] SERVICE DATE: March 07, 2024 Location: [facility] Participants: patient, and provider HPI: [...] I spent at least 50% of the [id number] time in counseling, explanation of diagnosis, planning of further management, and answering all questions. Randa Reilly MD [facility] documented in this encounterSumma Health [facility]02-08-2024 Instructions* Patient Instructions* Lauren Otero APRN.CNP - 12/23/2023 9:42 AM EST To schedule with headache clinic (can schedule at [facility]): [phone] documented in this encounterSumma Health [facility]02-08-2024 History of Present illness Narrative* Alejandro Villar MD, PhD - 12/23/2023 9:00 AM EST [facility] CHIEF COMPLAINT: Patient presents [...] She was referred to the headacheclinic at [facility] in the past but at [...] There is no focal weakness. PREVIOUS EVALUATIONS: [facility], 05/2015: Right Temporal Epilepsy Seizures: Aura -> [...] know if she decides to pursue at [facility] - she needs for spine doctor, plans to talk to PCP first but will let us know if she needs referralto someone here at [facility] - ENT referral as needed [...] MD, PhD in collaboration with Lauren Otero APRN.AIRPORT TRAFFIC CONTROLLER December 23, 2023 documented in this encounterSumma Health [facility]01-10-2024 Evaluation note* Encounter Date Diagnosis Assessment Notes Treatment Notes Treatment Clinical Notes Nov, Acute non-recurrent maxillary si nusitis (ICD-10 - J01.00) Instructed to use Robitussin or Mucinex for cough, saline or Flonase NS for congestion, Tylenol forpain and fever. Nov,rimary hypertension (ICD-10 - I10)Increased risk for more serious, prolonged illness. [facility] Other [id number] Miscellaneous Notes* Telephone Encounter - Mirian Bell APRN.CNP - 09/13/2023 1:53 PM EDT Thank you reviewed scan documents. Mirian Bell APRN.CNP * Telephone Encounter - Brenda Hodges RN - 09/13/2023 7:58 AM EDT Received medical records from [facility] and scanned into chart for review. documented in this encounterSumma Health [facility]10-30-2023 Miscellaneous Notes* Telephone Encounter - Daniel Macias [...] Please E-Scribe Caller Contact Number: Pharmacy Name: [facility] Pharmacy Number: [phone] Generic/ brand: 30 or 90 day supply requested: 90 Last appointment: 09/10/22 Next Appointment: 12/09/[address] Villar documented in this encounterSumma Health [facility]10-25-2023 Instructions* Patient Instructions* Mirian Bell APRN.CNP - 09/08/2023 3:21 PM EDT Please schedule for device check & in one year Please have patient sign release of medical labs [facility] had labs last month documented in this encounterSumma Health [facility]10-25-2023 History of Present illness Narrative* Mirian Bell APRN.CNP - 09/08/2023 2:30 PM EDT Images from the original note were not included. 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 Annual labs, I will obtain from [facility] she had last month Follow up appointment: Dr. Garner & device check in one year I spent 25 to 30 minutes in the visit, with more than 50% of the total cnli-ag-wwqk time of the visit in counseling / coordination of care. CONTACT INFORMATION: Mirian Bell APRN.CNP, 09/08/23 [facility] Second Floor [address] [place] [address] documented in this encounterSumma Health [facility] Campus10-11-2023 Evaluation note* Encounter Date Diagnosis Assessment Notes Treatment Notes Treatment Clinical Notes Aug, Lumbar stenosis with neurogenic claudication (ICD-10 - M48.062) [facility] Other 10-02-2023 Evaluation note* Encounter Date Diagnosis Assessment Notes Treatment Notes Treatment Clinical Notes Aug, Lumbar stenosis with neurogenic claudication (ICD-10 - M48.062) [facility] Other 09-28-2023 Evaluation note* Encounter Date Diagnosis Assessment Notes Treatment Notes Treatment Clinical Notes Jul, Lumbar stenosis with neurogenic claudication (ICD-10 - M48.062) [place] [employer] Other 09-20-2023 Progress note Author Niki Weeks [facility] August 04, 2023 7:57amNote Date/TimeSept2022 7:57am[place] [address] Neurosurgery Progress Note Signed Patient: Cassi Rodrigez MR#: [id number] : 1950 Acct:[id number] Age/Sex: 73 / F Adm Date: 3 Loc: 4N Room: [address] [place] [address] Type: REG SDC Attending Dr: Niki Weeks [...] BUN 24, Creatinine 1.48 H, Est GFR (CKD-EPI) 37.163, Glucose 129 H, Calcium 7.4 L 08/04/23 04:43: Corrected WBC 11.4, Uncorrected WBC Count 11.4, RBC 3.32 L, Hgb 10.5 L, Hct 31.5 L,MCV 94.8, MCH 31.6, MCHC 33.3, RDW 13.6, Plt Count 172, MPV 7.8, Neut % (Auto) 91.6, Lymph % (Auto)4.4, [place] % (Auto) 4.0, Eos % (Auto) 0.0, Baso % (Auto) 0.0, Nucleat RBC Rel Count 0.1, Neut # (Auto) 10.4 H, Lymph #(Auto) 0.5 L, [place] # (Auto) 0.5, Eos # (Auto) 0.0, [...] <Electronically signed by Niki Weeks MD> 08/04/23 [address] [facility] Work Phone: 1(334) 201-974208-23-2023 Evaluation note* Encounter Date Diagnosis Assessment Notes Treatment Notes Treatment Clinical Notes Jun, Lumbar stenosis with neurogenic claudication (ICD-10 - M48.062) [facility] Other 06-22-2023 Evaluation note* Encounter Date Diagnosis Assessment Notes Treatment Notes Treatment Clinical Notes Apr, Constipation (ICD-10 - K59.00) Patient was started on Linzess 72 mg she is doing well with this therapy and will continue this without change She will start dicyclomine 20 mg BID PRN for cramps RTO 1 year Apr,Nausea (ICD-10 - R11.0)Patient is on amitriptyline and her PCP increased her to 2 and 1/2 tablets to help with her back pain. She will continue with this therapy without change. [facility] Other 06-19-2023 Evaluation note* Encounter Date Diagnosis Assessment Notes Treatment Notes Treatment Clinical Notes Apr, Lumbosacral spondylosis with rad iculopathy (ICD-10 - M47.27) [facility] Other 06-19-2023 Evaluation note* Encounter Date Diagnosis Assessment Notes Treatment Notes Treatment Clinical Notes Apr, Primary hypertension (ICD-10 - I 10) This patient is instructed to consume a healthy, low-fat, low-salt diet. They are also encouraged to continue exercise to achieve/maintain a normal BMI. Apr,Lumbosacral spondylosis with radiculopathy (ICD-10 - M47.27)The patient is instructed to avoid bending, twisting or lifting. They are to use intermittent heat and ice as needed. They may schedule a massage or gentle manipulation. They may safely use Tylenol as needed. PT postponed until MRI completed MRI being [facility]ched[facility] [place] [facility] due to PM Apr,Stage 3b chronic kidney disease (ICD-10 - N18.32)The patient is instructed on adequate control of hypertension and diabetes, if appropriate. They are also educated on the associated risks of NSAIDs and PPI use with kidney disease. They were instructed on adequate fluid balance and to avoid dehydration. Apr,History of lumbar fusion (ICD-10 - Z98.1) [facility] Other 05-15-2023 Evaluation note* Encounter Date Diagnosis Assessment Notes Treatment Notes Treatment Clinical Notes March, Lumbosacral spondylosis with rad iculopathy (ICD-10 - M47.27) [facility] Other 05-11-2023 Evaluation note* Encounter Date Diagnosis Assessment Notes Treatment Notes Treatment Clinical Notes March, Primary hypertension (ICD-10 - I 10) This patient is instructed to consume a healthy, low-fat, low-salt diet. They are also encouraged to continue exercise to achieve/maintain a normal BMI. March,Lumbosacral spondylosis with radiculopathy (ICD-10 - M47.27)The patient is instructed to avoid bending, twisting or lifting. They are to use intermittent heat and ice as needed. They may schedule a massage. They may safely use Tylenol as needed. Referral to PT for evaluation and treatment March,Stage 3b chronic kidney disease (ICD-10 - N18.32)The patient is instructed on adequate control of hypertension and diabetes, if appropriate. They are also educated on the associated risks of NSAIDs and PPI use with kidney disease. They were instructed on adequate fluid balance and to avoid dehydration. March,astroesophageal reflux disease with esophagitis without hemorrhage (ICD-10 - K21.00)Diet instructions: Smaller portions, avoid eating and laying flat, avoid eating or drinking prior to bedtime. Weight loss. March,Obstructive sleep apnea (ICD-10 - G47.33)This patient is aware of the benefits associated with SHELL: With continued use, the patient reduces the risk for DC, CVA, HTN, cardiac dysrhythmias and sudden cardiac deaths.The patient is also aware of the association between SHELL and morning headaches, daytime somnolence, fatigue and obesity, March,Irritable bowel syndrome with constipation (ICD-10 - K58.1)Increase dietary fiber, continue Elavil and Linzess, which seems to be working for her intractable nausea and constipation. Bowel habits are qod w/o straining. March,History of lumbar fusion (ICD-10 - Z98.1)Hx of two surgeries. Conservative treatment for now. MRI? Referral to Neurosurgery if symptoms don't improve w/ PT March,OtherStable w/o breakthrough Sz. Secondary to ENGINEER TECHNICAL STAFF surgery Continue surveillance w/ US [facility] Other 2023 Evaluation note* Encounter Date Diagnosis Assessment Notes Treatment Notes Treatment Clinical Notes Jan, Nausea (ICD-10 - R11.0) [facility] Other 02-23-2023 Evaluation note* Encounter Date Diagnosis Assessment Notes Treatment Notes Treatment Clinical Notes Dec, Nausea (ICD-10 - R11.0) Increase Amitriptyline to 15mg at bedtime Dec,onstipation (ICD-10 - K59.00)Start Linzess 72mcg daily Pt to call if symptoms worsen or return Follow up in 4 months [facility] Other 01-11-2023 Evaluation note* Encounter Date Diagnosis Assessment Notes Treatment Notes Treatment Clinical Notes Nov, Essential hypertension (ICD-10 - I10) This patient is instructed to consume a healthy, low-fat, low-salt diet. They are also encouraged to continue exercise to achieve/maintain a normal BMI. Nov,Stage 3b chronic kidney disease (ICD-10 - N18.32)The patient is instructed on adequate control of hypertension and diabetes, if appropriate. They are also educated on the associated risks of NSAIDs and PPI use with kidney disease. They were instructed on adequate fluid balance and to avoid dehydration. Nov,Obstructive sleep apnea (ICD-10 - G47.33)This patient is aware of the benefits associated with SHELL: With continued use, the patient reduces the risk for DC, CVA, HTN, cardiac dysrhythmias and sudden cardiac deaths. The patient is also awareof the association between SHELL and morning headaches, daytime somnolence, fatigue and obesity Noncompliant Nov,Major depression, recurrent (ICD-10 - F33.9)Healthy diet, keep active and continue medications. f/u Psychiatry and counseling. Nov,astroesophageal reflux disease with esophagitis without hemorrhage (ICD-10 - K21.00)Diet instructions: Smaller portions, avoid eating and laying flat, avoid eating or drinking prior to bedtime. Weight loss. Continue PPI Nov,ervical spondylosis (ICD-10 - M47.812)ROM exercises, heat/ice and Tylenol. 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 Compliant w/ treatment, f/u appt w/ Neurology. Nov,Thyroid nodule (ICD-10 - E04.1)Surveillance for two years revealed no change, no further imaging necessary Nov,ge-related osteoporosis without current pathological fracture (ICD- 10 - M81.0)Healthy diet, Calcium and vitamin D supplements and weight bearing exercises. d/c bisphosphonate due to declincing GFR Nov,onstipation (ICD-10 - K59.00)Diet instructions reviewed, increase fiber, fluids. Discussed medication to try: Miralax, Metamucil, Senakot May need to trial Amitiza and discuss w/ GI [facility] Other 10-27-2022 History of Present illness Narrative* Lauren Otero APRN.[employer] - 09/10/2022 1:53 PM EDT [facility] CHIEF COMPLAINT: Patient presents [...] She was referred to the headacheclinic at [facility] in the past but at [...] There is no focal weakness. PREVIOUS EVALUATIONS: [facility], 05/2015: Right Temporal Epilepsy Seizures: Aura -> [...] by Dr. Alejandro Villar. [facility] History of Present illness Narrative* Kitty Millard MD - 07/23/2022 10:00 AM EDT Images from the original note were not included. [facility] Department of Cardiovascular Medicine SECTION OF CARDIAC PACING and ELECTROPHYSIOLOGY OUTPATIENT VISIT DATE July 23, 2022 OUTPATIENT VISIT TYPE ESTABLISHED PRIMARY CARE PHYSICIAN: Broderick Howard MD ([facility]) [address] [place] [address] CHIEF COMPLAINT: Pacemaker management HISTORY OF PRESENT [...] Lymph 1.00 - 4.00 k/uL 0.93 (L) [place]% % 7.7 Abs [place] <0.87 k/uL 0.32 Eosin% % 5.3 Abs [...] 3 months In person follow-up with Mirian Blel in 12 months; alternating with me on an annual basis Kitty Millard MD Electrophysiology documented in this encounter[facility] Evaluation note* Encounter Date Diagnosis Assessment Notes Treatment Notes Treatment Clinical Notes Dec, Nausea (ICD-10 - R11.0) PATIENT STATES THAT THIS HAS IMPROVED. PATIENT TO CONTINUE ON THE AMITRIPTYLINE DOSE AT THIS TIME. [facility] Other 03-12-2015 History of Past illness Narrative* Problem Noted DateResolved FzzkWmsqnvk33documented as of this encounter (statuses as of 07/23/2022) [address]12-2015 History of Past illness Narrative* ProblemNoted Date Resolved UmqcWeavqjb38documented as of this encounter (statuses as of 08/26/2022) [address]12-2015 History of Past illness Narrative* ProblemNoted Date Resolved GtokRjwtccw64documented as of this encounter (statuses as of 09/10/2022) [address]12-2015 History of Past illness Narrative* ProblemNoted Date Resolved HeisFormadk50documented as of this encounter (statuses as of 11/26/2022) [address]12-2015 History of Past illness Narrative* ProblemNoted Date Resolved EkkgQvpbbca11documented as of this encounter (statuses as of 02/25/2023) [address]12-2015 History of Past illness Narrative* ProblemNoted Date Diagnosed DateResolved JeriMidgixx81documented as of this encounter (statuses as of 06/17/2023) [address]12-2015 History of Past illness Narrative* ProblemNoted Date Diagnosed DateResolved TrfsFmjliiw36documented as of this encounter (statuses as of 09/08/2023) [address]12-2015 History of Past illness Narrative* ProblemNoted Date Diagnosed DateResolved CrpcGbybxta07documented as of this encounter (statuses as of 09/09/2023) [address]12-2015 History of Past illness Narrative* ProblemNoted Date Diagnosed DateResolved JxhfZhkcaju50documented as of this encounter (statuses as of 09/14/2023) [address]12[address]2015 History of Past illness Narrative* ProblemNoted Date Diagnosed DateResolved OwzwDcahbke15documented as of this encounter (statuses as of 09/14/2023) [facility] of Past illness Narrative* ProblemNoted Date Diagnosed DateResolved LtkvCbwovhv29documented as of this encounter (statuses as of 12/23/2023) [facility]Dis[facility] summary Author Niki Weeks [facility] August 05, 2023 8:09amNote Date/TimeSept2022 8:09am[place] [address] Discharge Summary Signed Patient: Cassi Rodrigez MR#: [id number] : 1950 Acct:[id number] Age/Sex: 73 / F Adm Date: 3 Loc: Room: [address] [place] [address]: Niki Weeks MD Copies to: [...] BUN 25, Creatinine 1.43 H, Est GFR (CKD-EPI) 38.727, Glucose 121 H, Calcium 8.1 L 08/05/23 05:34: Corrected WBC 7.3, Uncorrected WBC Count 7.3, RBC 3.14 L, Hgb 10.0 L, Hct 29.9 L, MCV 95.1, MCH 31.9, MCHC 33.5, RDW 13.5, Plt Count 147 L, MPV 7.6, Neut % (Auto) 77.1, Lymph % (Auto)11.8, [place] % (Auto) 9.2, Eos % (Auto) 1.7, Baso % (Auto) 0.2, Nucleat RBC Rel Count 0.4, Neut # (Auto) 5.6, Lymph # (Auto) 0.9 L, [place] # (Auto) 0.7, Eos # (Auto) 0.1, [...] MD> 08/05/23 0809 [facility] Work Phone: Evaluation + Plan note Future Appointments Appointment Date:10/25/2024 10:30:00 AM Scheduled Provider: Location:[facility] Appointment Type:Surgical PAT FT Appointment Date:11/02/2024 12:30:00 PM Scheduled Provider: Location:[facility] Appointment Type:Surgery FT [facility] Evaluation note* Diagnosis Chronic fatigue- Primary Other malaise and fatigue documented in this encounter [facility]* Diagnosis Partial epilepsy with impairment of consciousness, intractable (HCC) Localization-related (focal) (partial) epilepsy and epileptic syndromes with complex partial seizures, with intractable epilepsy [facility] Work Phone: evaluation noteNo [facility] [employer] Other evaluation note* Diagnosis Onset Date Resolution Status Lumbar stenosis with neurogenic claudica tion acute [facility] Work Phone: Evaluation note* Diagnosis Sinus node dysfunction (HCC)- Primary Sinoatrial node dysfunction Cardiac pacemaker in situ Bradycardia Other specified cardiac dysrhythmias [facility]* Diagnosis Partial epilepsy with impairment of consciousness, intractable (HCC) Localization-related (focal) (partial) epilepsy and epileptic syndromes with complex partial seizures, with intractable epilepsy [facility]* Diagnosis Pacemaker [Z95.0]- Primary Cardiac pacemaker in situ [facility]* Diagnosis Intractable 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 aura and without status migrainosus- Primary Chronic migraine without aura, with intractable migraine, so stated, without mention of status migrainosus [facility]* Diagnosis Intractable 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 aura and without status migrainosus- Primary Chronic migraine without aura, with intractable migraine, so stated, without mention of status migrainosus Cervicalgia SHELL (obstructive sleep apnea) Obstructive sleep apnea (adult) (pediatric) documented [facility]* Diagnosis Onset Date Resolution Status Hypertension acuteLumbar stenosis with neurogenic claudicationacute [facility] Work Phone: Evaluation note* Diagnosis Onset Date Resolution Status Hypertension acuteLumbar stenosis with neurogenic claudicationacuteAge-related osteoporosis without current pathological fractureacuteChronic kidney diseaseacute HypertensionacuteLumbosacral spondylosis with radiculopathyacuteObstructive sleep apneaacute [facility] Work Phone: Evaluation note* Diagnosis Intractable 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 aura and without status migrainosus- Primary Chronic migraine without aura, with intractable migraine, so stated, without mention of status migrainosus [facility]* Diagnosis Onset Date Resolution Status Age-related osteoporosis without current pathological fracture acuteChronic kidney diseaseacuteHypertensionacuteLumbosacral spondylosis with radiculopathyacuteObstructive sleep apneaacuteArthropathy of right hipacute Greater trochanteric bursitis of both hipsacuteHistory of lumbar surgeryacute Pain of both sacroiliac jointsacute [facility] Work Phone: Evaluation note* Diagnosis Onset Date Resolution Status Age-related osteoporosis without current pathological fracture acuteChronic kidney diseaseacuteHypertensionacuteLumbosacral spondylosis with radiculopathyacuteObstructive sleep apneaacuteArthropathy of right hipacute Greater trochanteric bursitis of both hipsacuteHistory of lumbar surgeryacute Pain of both sacroiliac jointsacuteAnemia of renal diseaseacuteChronic kidney gsksgmerzkajRKQ-[id number]ewwi canceracuteSecondary hyperparathyroidismacuteVitamin D deficiencyacute [facility] Work Phone: Evaluation note* Diagnosis Onset Date Resolution Status Age-related osteoporosis without current pathological fracture acuteChronic kidney diseaseacuteHypertensionacuteLumbosacral spondylosis with radiculopathyacuteObstructive sleep apneaacuteArthropathy of right hipacute Greater trochanteric bursitis of both hipsacuteHistory of lumbar surgeryacute Pain of both sacroiliac jointsacuteAnemia of renal diseaseacuteCKD (chronic kidney disease) stage 4, GFR 15-29 ml/[id number] acuteSecondary hyperparathyroidismacuteAge-related osteoporosis without current pathological fractureacuteChronic kidney diseaseacuteGastroesophageal reflux disease with esophagitis without hemorrhageacuteHistory of pancreatic cancer acuteHypertensionacuteLumbar stenosis with neurogenic claudicationacuteMajor depressionacuteMedicare annual wellness visit, subsequentnoneactiveScreening mammogram for breast cancernonWV[facility] Work Phone: Evaluation note* Diagnosis Focal epilepsy with impairment of consciousness, intractable (HCC)- Primary Localization-related (focal) (partial) epilepsy and epileptic syndromes with simple partial seizures, with intractable epilepsy Partial epilepsy with impairment of consciousness, intractable (HCC) Localization-related (focal) (partial) epilepsy and epileptic syndromes with complex partial seizures, with intractable epilepsy [facility]* Diagnosis Onset Date Resolution Status Arthropathy of right hip acuteGreater trochanteric bursitis of both hipsacuteHistory of lumbar surgery acutePain of both sacroiliac jointsacuteAnemia of renal diseaseacuteCKD (chronic kidney disease) stage 4, GFR 15-29 ml/[id number] acuteSecondary hyperparathyroidismacuteAge-related osteoporosis without current pathological fractureacuteChronic kidney diseaseacuteGastroesophageal reflux disease with esophagitis without hemorrhageacuteHistory of pancreatic cancer acuteHypertensionacuteLumbar stenosis with neurogenic claudicationacuteMajor depressionacuteMedicare annual wellness visit, subsequentnoneactiveScreening mammogram for breast cancernon[facility] Work Phone: Evaluation note* Diagnosis Onset Date Resolution Status Anemia of renal disease acuteCKD (chronic kidney disease) stage 4, GFR 15-29 ml/minacute [id number] hyperparathyroidismacuteAge- related osteoporosis without current pathological fractureacuteChronic kidney diseaseacuteGastroesophageal reflux disease with esophagitis without hemorrhage acuteHistory of pancreatic canceracuteHypertensionacuteLumbar stenosis with neurogenic claudicationacuteMajor depressionacuteMedicare annual wellness visit, subsequentnoneactiveScreening mammogram for breast cancernoneactiveConstipation acuteGERD (gastroesophageal reflux disease)acuteNauseaacutePancreatic cancer [facility] Work Phone: Evaluation note* Diagnosis Sinus node dysfunction (HCC)- Primary Sinoatrial node dysfunction Cardiac pacemaker in situ Bradycardia Other specified cardiac dysrhythmias documented in this encounter [facility]* Diagnosis Intractable 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 aura and without status migrainosus- Primary Chronic migraine without aura, with intractable migraine, so stated, without mention of status migrainosus documented in this encounter [facility]* Diagnosis Onset Date Resolution Status Age-related osteoporosis without current pathological fracture acuteChronic kidney diseaseacuteGastroesophageal reflux disease with esophagitis without hemorrhageacuteHistory of pancreatic canceracuteHypertensionacuteLumbar stenosis with neurogenic claudicationacuteMajor depressionacuteMedicare annual wellness visit, subsequentnoneactiveScreening mammogram for breast cancer noneactiveConstipationacuteGERD (gastroesophageal reflux disease)acuteNausea acutePancreatic canceracuteHistory of DVT (deep vein thrombosis)acute HypertensionacuteSwelling of right lower extremityacuteAnemia of renal disease acuteCKD (chronic kidney disease) stage 4, GFR 15-29 ml/minacute [id number] hyperparathyroidismacute [facility] Work Phone: Evaluation note* Diagnosis Abdominal wall hematoma, initial encounter- Primary [facility]* Diagnosis Localization-related (focal) (partial) symptomatic epilepsy and epileptic syndromes with complex partial seizures, intractable, without status epilepticus (HCC) documented in this encounter [facility]* Diagnosis Abdominal wall hematoma, subsequent encounter- Primary [facility]* Diagnosis Localization-related (focal) (partial) symptomatic epilepsy and epileptic syndromes with complex partial seizures, intractable, without status epilepticus (HCC)- Primary Memory loss documented in this encounter [facility]* Diagnosis Intractable 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 aura and without status migrainosus- Primary Chronic migraine without aura, with intractable migraine, so stated, without mention of status migrainosus documented in this encounter [facility]* Diagnosis MCI (mild cognitive impairment)- Primary Mild cognitive impairment, so stated documented in this encounter [facility]* Diagnosis Intractable 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 aura and without status migrainosus- Primary Chronic migraine without aura, with intractable migraine, so stated, without mention of status migrainosus documented in this encounter [facility]* Diagnosis Chronic pain syndrome- Primary MCI (mild cognitive impairment) Mild cognitive impairment, so stated Sinus node dysfunction (HCC) Sinoatrial node dysfunction Obesity, Class II, BMI 35-39.9 Obesity, unspecified documented in this encounter [facility] note* Diagnosis Onset Date Resolution Status Admit Date Age-related osteoporosis without current pathological fracture acuteAugust 2024 2:50pmChronic kidney diseaseacuteAugust 2024 2:50pm Gastroesophageal reflux disease with esophagitis without hemorrhageacuteAugust 2024 2:50pmHistory of pancreatic canceracuteAugust 2024 2:50pm HypertensionacuteAugust 2024 2:50pmLumbar stenosis with neurogenic claudicationacuteAugust 2024 2:50pmMajor depressionacuteAugust 2024 2:50pmMedicare annual wellness visit, subsequentnoneactiveAugust 2024 2:50pmScreening mammogram for breast cancernoneactiveAugust 2024 2:50pm [facility] Work Phone: Evaluation note* Diagnosis Intractable 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 aura and without status migrainosus- Primary Chronic migraine without aura, with intractable migraine, so stated, without mention of status migrainosus documented in this encounter [facility] general Narrative - Reported* Type Description Date Surgical History back surgery-2 Surgical Historycervical fusionSurgical HistorycholecystectomySurgical History whipple [id number] HistoryappendectomySurgical Historyhammer toe Surgical Historyrotator cuff-leftSurgical Historytemporal lumpectomy Hospitalization Historysee surgical hx [facility] Other History general Narrative - Reported* Type Description Date Medical History Lumbar spondylosis Medical HistoryRetinal hemorrhage, bilateralMedical HistoryMajor depression, recurrentMedical HistoryEpilepsy seizure, generalized, convulsiveMedical History BPPV (benign paroxysmal positional vertigo), leftMedical HistoryThyroid nodule Medical HistoryMenopauseMedical HistoryVitamin D deficiencyMedical History OsteoporosisMedical HistoryFatigue, unspecified typeMedical HistoryNausea alone Medical HistoryHigh risk medication useMedical HistoryObesityMedical History Obstructive sleep apneaMedical HistoryEncounter for well woman exam with routine gynecological examMedical HistoryHypertensive chronic kidney disease with stage 1 through stage 4 chronic kidney disease, or unspecified chronic kidney disease Medical HistoryStage 3b chronic kidney disease (CKD)Medical HistoryNausea and vomiting in adultMedical HistoryTear of left supraspinatus tendonMedical History Migraine with aura and without status migrainosus, not intractableMedical HistoryLower extremity edemaMedical HistoryAdhesive capsulitis of left shoulder Medical HistoryEssential hypertensionMedical HistoryCurrent use of lobsterman anticoagulationMedical HistoryHistory of pancreatic cancerMedical HistoryHistory of deep vein thrombosisMedical HistoryCervical spondylosisMedical HistoryChest tightnessMedical HistoryGastroesophageal reflux disease with esophagitis without hemorrhageSurgical Historyback surgery-2Surgical Historycervical fusionSurgical HistorycholecystectomySurgical Historywhipple [id number] History appendectomySurgical Historyhammer toeSurgical Historyrotator cuff-leftSurgical Historytemporal lumpectomyHospitalization Historysee surgical hx [facility] Other History general Narrative - Reported* Type Description Date Medical History Lumbar spondylosis Medical HistoryRetinal hemorrhage, bilateralMedical HistoryMajor depression, recurrentMedical HistoryEpilepsy seizure, generalized, convulsiveMedical History BPPV (benign paroxysmal positional vertigo), leftMedical HistoryThyroid nodule Medical HistoryMenopauseMedical HistoryVitamin D deficiencyMedical History OsteoporosisMedical HistoryFatigue, unspecified typeMedical HistoryNausea alone Medical HistoryHigh risk medication useMedical HistoryObesityMedical History Obstructive sleep apneaMedical HistoryEncounter for well woman exam with routine gynecological examMedical HistoryHypertensive chronic kidney disease with stage 1 through stage 4 chronic kidney disease, or unspecified chronic kidney disease Medical HistoryStage 3b chronic kidney disease (CKD)Medical HistoryNausea and vomiting in adultMedical HistoryTear of left supraspinatus tendonMedical History Migraine with aura and without status migrainosus, not intractableMedical HistoryLower extremity edemaMedical HistoryAdhesive capsulitis of left shoulder Medical HistoryEssential hypertensionMedical HistoryCurrent use of lobsterman anticoagulationMedical HistoryHistory of pancreatic cancerMedical HistoryHistory of deep vein thrombosisMedical HistoryCervical spondylosisMedical HistoryChest tightnessMedical HistoryGastroesophageal reflux disease with esophagitis without hemorrhageMedical HistoryappendectomyMedical HistoryArthritisMedical History AsthmaMedical Historycancer-PancreaticMedical HistorycataractsMedical History epilepsyMedical Historygall bladder diseaseMedical Historyheart diseaseMedical Historyhigh blood pressureMedical Historykidney diseaseMedical Historymigraine headachesMedical HistoryosteoporosisMedical HistorypacemakerMedical History chronic depressionMedical HistoryDVTSurgical Historyback surgery-2Surgical Historycervical fusion [id number] HistorycholecystectomySurgical Historywhipple [id number] HistoryappendectomySurgical Historyhammer toeSurgical Historyrotator cuff-leftSurgical Historytemporal lumpectomySurgical History StentsSurgical Historycardiac pacemekerSurgical HistoryPort removal Hospitalization Historysee surgical hx [facility] Other History general Narrative - Reported* Type Description Date Medical History Lumbar spondylosis Medical HistoryRetinal hemorrhage, bilateralMedical HistoryMajor depression, recurrentMedical HistoryEpilepsy seizure, generalized, convulsiveMedical History BPPV (benign paroxysmal positional vertigo), leftMedical HistoryThyroid nodule Medical HistoryMenopauseMedical HistoryVitamin D deficiencyMedical History OsteoporosisMedical HistoryFatigue, unspecified typeMedical HistoryNausea alone Medical HistoryHigh risk medication useMedical HistoryObesityMedical History Obstructive sleep apneaMedical HistoryEncounter for well woman exam with routine gynecological examMedical HistoryHypertensive chronic kidney disease with stage 1 through stage 4 chronic kidney disease, or unspecified chronic kidney disease Medical HistoryStage 3b chronic kidney disease (CKD)Medical HistoryNausea and vomiting in adultMedical HistoryTear of left supraspinatus tendonMedical History Migraine with aura and without status migrainosus, not intractableMedical HistoryLower extremity edemaMedical HistoryAdhesive capsulitis of left shoulder Medical HistoryEssential hypertensionMedical HistoryCurrent use of mcc anticoagulationMedical HistoryHistory of pancreatic cancerMedical HistoryHistory of deep vein thrombosisMedical HistoryCervical spondylosisMedical HistoryChest tightnessMedical HistoryGastroesophageal reflux disease with esophagitis without hemorrhageMedical HistoryappendectomyMedical HistoryArthritisMedical History AsthmaMedical Historycancer-PancreaticMedical HistorycataractsMedical History epilepsyMedical Historygall bladder diseaseMedical Historyheart diseaseMedical Historyhigh blood pressureMedical Historykidney diseaseMedical Historymigraine headachesMedical HistoryosteoporosisMedical HistorypacemakerMedical History chronic depressionMedical HistoryDVTSurgical Historyback surgery-2Surgical Historycervical fusion [id number] HistorycholecystectomySurgical Historywhipple [id number] HistoryappendectomySurgical Historyhammer toeSurgical Historyrotator cuff-leftSurgical Historytemporal lumpectomySurgical History StentsSurgical Historycardiac pacemekerSurgical HistoryPort removalSurgical HistoryLumbar decompressive laminectomy L4-59/2022Hospitalization Historysee surgical hx [facility] Other Hospital course Narrative No data available for this section [facility] Hospital Discharge instructions Additional Instructions Eat a well balanced [facility] Work Phone: Hospital Discharge instructionsAmbulatory Orders* Referral to Orthopedic Surgery Location: None [facility] Work Phone: Hospital Discharge instructions No data available for this section [facility] Hospital Discharge instructions Additional Instructions As discussed you should hold your Coumadin for 5 days Wear abdominal binder as discussed Call Dr. Howard your primary care doctor on Wednesday let him know that you should be evaluated Please return here if you develop any dizziness, chest pain, shortness of breath, fevers, chills increased abdominal swelling, lightheadedness or any other concernsAden[facility] Work Phone: Progress note Author Niki Weeks [facility] August 05, 2023 8:00amNote Date/TimeSeptember 2022 8:00[place] [address] Neurosurgery Progress Note Signed Patient: Cassi Rodrigez MR#: [id number] : 1950 Acct:[id number] Age/Sex: 73 / F Adm Date: 3 Loc: 4N Room: [address] [place] [address] Type: REG SDC Attending Dr: Niki Weeks [...] BUN 25, Creatinine 1.43 H, Est GFR (CKD-EPI) 38.727, Glucose 121 H, Calcium 8.1 L 08/05/23 05:34: Corrected WBC 7.3, Uncorrected WBC Count 7.3, RBC 3.14 L, Hgb 10.0 L, Hct 29.9 L, MCV 95.1, MCH 31.9, MCHC 33.5, RDW 13.5, Plt Count 147 L, MPV 7.6, Neut % (Auto) 77.1, Lymph % (Auto)11.8, [place] % (Auto) 9.2, Eos % (Auto) 1.7, Baso % (Auto) 0.2, Nucleat RBC Rel Count 0.4, Neut # (Auto) 5.6, Lymph # (Auto) 0.9 L, [place] # (Auto) 0.7, Eos # (Auto) 0.1, [...] removed tomorrow morning (Mr. Rodrigez has been in structed). Mrs. Rodrigez has been instructed to walk multiple times daily and to avoid constipation.She will follow-up with me in early August. Code(s): M48.062 - Spinal stenosis, lumbar region with neurogenic claudication Status: Acute Time Spent With Patient (min): 20 Documented By: Niki Weeks MD 08/05/23 075 5 Signed By: <Electronically signed by Niki Weeks MD> 08/05/23 0800 [facility] Work Phone: Progress note No data available for this section [facility] Reason for referral (narrative)* Outpatient Procedure (Routine) - ClosedSpecialtyDiagnoses / ProceduresReferred By ContactReferred To [facility] Diagnoses Chronic fatigue Procedures ECG COMPLETE ECG ROUTINE ECG W/LEAST 12 LDS W/I&[place] [address] [place] [address] [facility] [address] [place] [address] Referral IDStatusReasonStart DateExpiration DateVisits RequestedVisits [id number] Auto-Generated Referral [facility] for referral (narrative)* Outpatient Procedure (Routine) - Pending ReviewSpecialtyDiagnoses / ProceduresReferred By ContactReferred To [facility] Diagnoses Sinus node dysfunction (HCC) Cardiac pacemaker in situ Bradycardia Procedures ECG COMPLETE ECG ROUTINE ECG W/LEAST 12 LDS W/I&R Mirian Bell APRN.CNP [address] [place] [address] [facility] [address] [place] [address] Referral IDStatusReasonStart DateExpiration DateVisits RequestedVisits [id number] Review Auto-Generated Referral / [facility] for referral (narrative)* Outpatient Procedure (Routine) - Pending ReviewSpecialtyDiagnoses / ProceduresReferred By ContactReferred To [facility] Diagnoses Sinus node dysfunction (HCC) Procedures ECHO ECHO TTHRC R-T 2D W/WOM-MODE COMPL SPEC&[place] [address] [place] [address] [facility] [address] [place] [address] Referral IDStatusReasonStart DateExpiration DateVisits RequestedVisits [id number] Review Auto-Generated Referral * Outpatient Procedure (Routine) - New RequestSpecialtyDiagnoses / Procedures Referred By ContactReferred To [facility] Diagnoses Sinus node dysfunction (HCC) Procedures ECG COMPLETE ECG ROUTINE ECG W/LEAST 12 LDS W/I&[place] [address] [place] [address] [facility] [address] [place] [address] Referral IDStatusReMadison [facility] DateExpiration DateVisits RequestedVisits [id number] Request Auto-Generated Referral [facility]Reason for [facility] (narrative)No reason for referral information availableTrinity Health System [facility] Work Phone: Revckv for visit Narrative* Injectable (Routine) - AuthorizedSpecialtyDiagnoses / ProceduresReferred By ContactReferred To [facility] Diagnoses Chronic migraine without aura, intractable, without status migrainosus Procedures BOTULINUM TOXIN A PER 1 UNIT CHEMODERVATE FACIAL/TRIGEM/[place] [address]/[facility] [place] [address] Phone: tel: fax: Neurology [address] [place] [address] Phone: tel: fax: Referral IDStatusReasonSaint Mary DateExpiration DateVisits RequestedVisits [id number]/29/202412/ [facility] Summary Purpose Family History No Family History Records Found Relationship Condition Age at Onset Recorded Date/T miguel father Malignant neoplasm of pancreas Unknown brotherMalignant neoplasm of pancreasUnknownNot SpecifiedMalignant neoplasm of breastUnknown Relationship Condition Age at Onset Recorded Date/T miguel father Malignant neoplasm of pancreas Unknown brotherMalignant neoplasm of pancreasUnknownNot SpecifiedMalignant neoplasm of breastUnknownfamily memberDeceasedUnknown Relationship Condition Age at Onset Recorded Date/T miguel father Malignant neoplasm of pancreas Unknown brotherMalignant neoplasm of pancreasUnknownmotherMalignant neoplasm of breast Unknownfamily memberDeceasedUnknown Advance Directives No Advanced Directives Records Found [...] 2:50pm Screening mammogram for breast cancer [facility] 2024 2:50pm Chief Complaint m47.27 Chief Complaint m47.27 m47.27 Chief Complaint m47.27 m47.27 stenosis Chief Complaint m47.27 m47.27 stenosis stenosisReason for VisitLumbar stenosis with neurogenic claudication Chief Complaint Cough , Drainage For Weeks [phone] BACK ISSUES Chief Complaint BACK ISSUES Amb Documentation z95.0Reason for VisitHypertension Lumbar stenosis with neurogenic claudication Chief Complaint BACK ISSUES Amb Documentation z95.0 M54.50 1 month increased pain as before surgery w/bladesReason for VisitHypertension Lumbar stenosis with neurogenic claudication Age-related osteoporosis without current pathological fracture Chronic kidney disease Hypertension Lumbosacral spondylosis with radiculopathy Obstructive sleep apnea Chief Complaint z95.0 M54.50 1 month increased pain as before surgery w/blades m54.16Reason for VisitAge-related osteoporosis without current pathological fracture Chronic kidney disease Hypertension Lumbosacral spondylosis with radiculopathy Obstructive sleep apnea Arthropathy of right hip Greater trochanteric bursitis of both hips History of lumbar surgery Pain of both sacroiliac joints Chief Complaint M54.50 1 month increased pain as before surgery w/blades m54.16 RENAL CKDReason for VisitAge-related osteoporosis without current pathological fracture Chronic kidney disease Hypertension Lumbosacral spondylosis with radiculopathy Obstructive sleep apnea Arthropathy of right hip Greater trochanteric bursitis of both hips History of lumbar surgery Pain of both sacroiliac joints Anemia of renal disease Chronic kidney disease [id number] Leukopenia Pancreatic cancer Secondary hyperparathyroidism Vitamin D deficiency Chief Complaint 1 month increased pain as before surgery w/blades m54.16 RENAL CKD MAWVReason for VisitAge-related osteoporosis without current pathological fracture Chronic kidney disease Hypertension Lumbosacral spondylosis with radiculopathy Obstructive sleep apnea Arthropathy of right hip Greater trochanteric bursitis of both hips History of lumbar surgery Pain of both sacroiliac joints Anemia of renal disease CKD (chronic kidney disease) stage 4, GFR 15-29 ml/min [id number] Leukopenia Secondary hyperparathyroidism Age-related osteoporosis without current pathological fracture Chronic kidney disease Gastroesophageal reflux disease with esophagitis without hemorrhage History of pancreatic cancer Hypertension Lumbar stenosis with neurogenic claudication Major depression Medicare annual wellness visit, subsequent Screening mammogram for breast cancer Chief Complaint increased pain as be fore surgery w/blades m54.16 RENAL CKD MAWV UnknownReason for VisitArthropathy of right hip Greater trochanteric bursitis of both hips History of lumbar surgery Pain of both sacroiliac joints Anemia of renal disease CKD (chronic kidney disease) stage 4, GFR 15-29 ml/min [id number] Leukopenia Secondary hyperparathyroidism Age-related osteoporosis without current pathological fracture Chronic kidney disease Gastroesophageal reflux disease with esophagitis without hemorrhage History of pancreatic cancer Hypertension Lumbar stenosis with neurogenic claudication Major depression Medicare annual wellness visit, subsequent Screening mammogram for breast cancer Chief Complaint RENAL CKD MAWV Unknown 1 YR F/U-CONSTIPATION/NAUSEAReason for VisitAnemia of renal disease CKD (chronic kidney disease) stage 4, GFR 15-29 ml/min [id number] Leukopenia Secondary hyperparathyroidism Age-related osteoporosis without current pathological fracture Chronic kidney disease Gastroesophageal reflux disease with esophagitis without hemorrhage History of pancreatic cancer Hypertension Lumbar stenosis with neurogenic claudication Major depression Medicare annual wellness visit, subsequent Screening mammogram for breast cancer Constipation GERD (gastroesophageal reflux disease) Nausea Pancreatic cancer Chief Complaint RENAL CKD MAWV Unknown 1 YR F/U-CONSTIPATION/NAUSEA Flu ShotReason for VisitAnemia of renal disease CKD (chronic kidney disease) stage 4, GFR 15-29 ml/min [id number] Leukopenia Secondary hyperparathyroidism Age-related osteoporosis without current [...] white spot on your leg, red bumps, tenderReason for VisitAnemia of renal disease CKD (chronic kidney disease) stage 4, GFR 15-29 ml/min [id number] Leukopenia Secondary hyperparathyroidism Age-related osteoporosis without current [...] leg, red bumps, tender RENAL 3 MONTH F/UReason for VisitAge-related osteoporosis without current pathological fracture Chronic kidney [...] kidney disease) stage 4, GFR 15-29 ml/min [id number] Secondary hyperparathyroidism Chief Complaint Admit Date 1 [...] 2024 8:49am Preop exam for internal medicine [facility] 2023 8:49am Chief Complaint Admit Date 1 [...] 2024 8:49am Preop exam for internal medicine [facility] r 2023 8:49am Adverse effect of [...] 0:35am stomach pain-sent by November 24 1:33pm [facility] ER f/u November 28, 2024 1 [...] 2024 8:49am Preop exam for internal medicine [facility] r 2023 8:49am Adverse effect of [...] 0:35am stomach pain-sent by November 24 1:33pm [facility] ER f/u November 28, 2024 1 0:54am follow up December 08, 2024 9 :51am Reason for Visit Admit Date Chronic kidney disease October 27 8:49am Gastroesophageal reflux dise ase with esophagitis without hemorrhage October 27, 2024 8:49am History of DVT (deep vein thrombosis) De cem2023 8:49am Hypertension October 27, 2024 8:49am Lumbar stenosis with neurogenic claudica tion October 27, 2024 8:49am Major depression October 27, 2024 8:49am Preop exam for internal medicine [facility] 2023 8:49am Adverse effect of anticoagul [...] 0:35am stomach pain-sent by November 24 1:33pm [facility] ER f/u November 28, 2024 1 [...] 0:35am stomach pain-sent by November 24 1:33pm [facility] ER f/u November 28, 2024 1 [...] 15, 2025 9:36am Secondary hyperparathyroidism August 9:36am Chief Complaint Admit Date Wellness July 02, [...] 2:50pm Screening mammogram for breast cancer [facility] 2024 2:50pm Anemia of renal disease August 15 9:36am CKD (chronic kidney disease) stage 4, GF R 15-29 ml/min August 15, 2025 9:36am GERD (gastroesophageal reflux disease) O ct2024 9:36am Hypertensive chronic kidney disease with stage 1 through stage 4 chronic ki August 15, 2025 9:36am Secondary hyperparathyroidism August 9:36am Nausea August 28, 2025 9 :35am Reason for Referral SpecialtyDiagnoses / ProceduresReferred By ContactReferred To [facility] Diagnoses Cervicalgia Procedures CONSULT TO [facility] OFFICE/OUTPATIENT [facility] 60 [place] [address] [place] [address] Referral IDStatusReasonStart DateExpiration DateVisits RequestedVisits [id number] PCP Requested Referral /[id number] / ProceduresReferred By ContactReferred To Contact Diagnoses SHELL (obstructive sleep apnea) Procedures CONSULT TO SLEEP MEDICINE - ADULT OFFICE/OUTPATIENT [facility] 60 [place] [address] [place] [address] Referral IDStatusReasonSttyrone DateExpiration DateVisits RequestedVisits [id number] PCP Requested Referral /[id number] / ProceduresReferred By ContactReferred To ContactHEADACHE Diagnoses Intractable 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 aura and without status migrainosus Procedures CONSULT TO HEADACHE CLINIC OFFICE/OUTPATIENT [facility] 60 MINUTES Lauren Otero, CONNIE.[employer] [address] [place] [address] Neur Headache Main [address] [place] [id number] Referral [facility]StatusLewis[facility] DateExpiration DateVisits RequestedVisits [id number] PCP Requested Referral Additional Source Comments REASON FOR VISIT (unrecogniz ed section and content) ReasonCommentsEstablished PatientBotox treatmentChronic MigraineSpecialty Diagnoses / ProceduresReferred By ContactReferred To ContactADULT NEUROLOGY Diagnoses Chronic migraine without aura, intractable, without status migrainosus Procedures BOTULINUM TOXIN A PER 1 UNIT CHEMODERVATE FACIAL/TRIGEM/[place] [address] [address] [place] [address] Phone: tel: fax: Neurology [address] [place] [address] Phone: tel: fax: Referral IDStatusReasonSaint Mary DateExpiration DateVisits RequestedVisits [id number]/29/202412/[id number] Follow UpReasonCommentsEstablished PatientPartial epilepsy with impairment of consciousness, intractable (HCC)ReasonCommentsFollow UpReasonOnset DateComments Refill Wuesdxa3909/13/2023ReasonCommentsPatient UpdateReasonCommentsFollow Up Epilepsy. Patient states she has been stable since last visit.ReasonCommentsNew PatientIntractable 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 aura and without status migrainosus SpecialtyDiagnoses / ProceduresReferred By ContactReferred To ContactHEADACHE Diagnoses Intractable 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 aura and without status migrainosus Procedures CONSULT TO HEADACHE CLINIC OFFICE/OUTPATIENT [facility] 60 MINUTES Lauren Otero APRN.[employer] [address] [place] [address] Neur Headache Main [address] [place] [phone] Referral IDStatusReasonStart DateExpiration DateVisits RequestedVisits [id number] PCP Requested Referral /[id number] PatientbotoxSpecialtyDiagnoses / ProceduresReferred By ContactReferred To ContactADULT NEUROLOGY Diagnoses Chronic migraine without aura, intractable, without status migrainosus Procedures BOTULINUM TOXIN A PER 1 UNIT CHEMODERVATE FACIAL/TRIGEM/[place] [address] [address]/[facility] [place] [address] Neur Adult [place] [address] [place] [id number] Referral IDStatusReasonStart DateExpiration DateVisits RequestedVisits [id number]/29/20244/[id number]lffx CommentsCardiology Follow UpSpecialtyDiagnoses / ProceduresReferred By Contact Referred To ContactADULT NEUROLOGY Diagnoses Chronic migraine without aura, intractable, without status migrainosus Procedures BOTULINUM TOXIN A PER 1 UNIT CHEMODERVATE FACIAL/TRIGEM/CERV MUSC MIGRAINE Randa Reilly MD [address]/[facility] [place] [id number] Neur Adult [place] [address] [place] [id number] ReasonCommentsLarge abdominal hematomaReasonCommentsRefill RequestReasonComments PCP requested pt. be seen again for blisters on her abdomenReasonCommentsFollow UpReasonCommentsEstablished PatientbotoxChronic MigraineReasonCommentsNew PatientSpecialtyDiagnoses / ProceduresReferred By ContactReferred To Contact Neurology Diagnoses MCI (mild cognitive impairment) Procedures CONSULT TO NEUROLOGY OFFICE/OUTPATIENT [facility] 60 MINUTES Alejandro Villar MD, PhD [address] [place] [address] Phone: tel: fax: Outpatient Referral [address] [place] [address] Referral IDStatusReasonStart DateExpiration DateVisits RequestedVisits [id number] PCP Requested Referral / Source Comments (unrecognize d section and content) In the event this informatio n is protected by the Federal Confidentiality of Alcohol and Drug Abuse Patient Records regulations: The Federal rules restrict any use of the information to criminally investigate or prosecute any alcohol or drug abuse patient.[facility] CampusIn the event this information is protected by the Federal Confidentiality of Alcohol and Drug Abuse Patient Records regulations: The Federal rules restrict any use of the information to criminally investigate or prosecute any alcohol or drug abuse patient.[facility] CampusIn the event this information is protected by the Federal Confidentiality of Alcohol and Drug Abuse Patient Records regulations: The Federal rules restrict any use of the information to criminally investigate or prosecute any alcohol or drug abuse patient.[facility] CampusIn the event this information is protected by the Federal Confidentiality of Alcohol and Drug Abuse Patient Records regulations: The Federal rules restrict any use of the information to criminally investigate or prosecute any alcohol or drug abuse patient.[facility] CampusIn the event this information is protected by the Federal Confidentiality of Alcohol and Drug Abuse Patient Records regulations: The Federal rules restrict any use of the information to criminally investigate or prosecute any alcohol or drug abuse patient.[facility] CampusIn the event this information is protected by the Federal Confidentiality of Alcohol and Drug Abuse Patient Records regulations: The Federal rules restrict any use of the information to criminally investigate or prosecute any alcohol or drug abuse patient.[facility] CampusIn the event this information is protected by the Federal Confidentiality of Alcohol and Drug Abuse Patient Records regulations: The Federal rules restrict any use of the information to criminally investigate or prosecute any alcohol or drug abuse patient.[facility] CampusIn the event this information is protected by the Federal Confidentiality of Alcohol and Drug Abuse Patient Records regulations: The Federal rules restrict any use of the information to criminally investigate or prosecute any alcohol or drug abuse patient.[facility] CampusIn the event this information is protected by the Federal Confidentiality of Alcohol and Drug Abuse Patient Records regulations: The Federal rules restrict any use of the information to criminally investigate or prosecute any alcohol or drug abuse patient.[facility] CampusIn the event this information is protected by the Federal Confidentiality of Alcohol and Drug Abuse Patient Records regulations: The Federal rules restrict any use of the information to criminally investigate or prosecute any alcohol or drug abuse patient.[facility] CampusIn the event this information is protected by the Federal Confidentiality of Alcohol and Drug Abuse Patient Records regulations: The Federal rules restrict any use of the information to criminally investigate or prosecute any alcohol or drug abuse patient.[facility] CampusIn the event this information is protected by the Federal Confidentiality of Alcohol and Drug Abuse Patient Records regulations: The Federal rules restrict any use of the information to criminally investigate or prosecute any alcohol or drug abuse patient.[facility] CampusIn the event this information is protected by the Federal Confidentiality of Alcohol and Drug Abuse Patient Records regulations: The Federal rules restrict any use of the information to criminally investigate or prosecute any alcohol or drug abuse patient.[facility] CampusIn the event this information is protected by the Federal Confidentiality of Alcohol and Drug Abuse Patient Records regulations: The Federal rules restrict any use of the information to criminally investigate or prosecute any alcohol or drug abuse patient.[facility] CampusIn the event this information is protected by the Federal Confidentiality of Alcohol and Drug Abuse Patient Records regulations: The Federal rules restrict any use of the information to criminally investigate or prosecute any alcohol or drug abuse patient.[facility] CampusIn the event this information is protected by the Federal Confidentiality of Alcohol and Drug Abuse Patient Records regulations: The Federal rules restrict any use of the information to criminally investigate or prosecute any alcohol or drug abuse patient.[facility] CampusIn the event this information is protected by the Federal Confidentiality of Alcohol and Drug Abuse Patient Records regulations: The Federal rules restrict any use of the information to criminally investigate or prosecute any alcohol or drug abuse patient.[facility] CampusIn the event this information is protected by the Federal Confidentiality of Alcohol and Drug Abuse Patient Records regulations: The Federal rules restrict any use of the information to criminally investigate or prosecute any alcohol or drug abuse patient.[facility] CampusIn the event this information is protected by the Federal Confidentiality of Alcohol and Drug Abuse Patient Records regulations: The Federal rules restrict any use of the information to criminally investigate or prosecute any alcohol or drug abuse patient.[facility] CampusIn the event this information is protected by the Federal Confidentiality of Alcohol and Drug Abuse Patient Records regulations: The Federal rules restrict any use of the information to criminally investigate or prosecute any alcohol or drug abuse patient.[facility] CampusIn the event this information is protected by the Federal Confidentiality of Alcohol and Drug Abuse Patient Records regulations: The Federal rules restrict any use of the information to criminally investigate or prosecute any alcohol or drug abuse patient.[facility] CampusIn the event this information is protected by the Federal Confidentiality of Alcohol and Drug Abuse Patient Records regulations: The Federal rules restrict any use of the information to criminally investigate or prosecute any alcohol or drug abuse patient.[facility] CampusIn the event this information is protected by the Federal Confidentiality of Alcohol and Drug Abuse Patient Records regulations: The Federal rules restrict any use of the information to criminally investigate or prosecute any alcohol or drug abuse patient.[facility] CampusIn the event this information is protected by the Federal Confidentiality of Alcohol and Drug Abuse Patient Records regulations: The Federal rules restrict any use of the information to criminally investigate or prosecute any alcohol or drug abuse patient.[facility] Care Teams (unrecognized sec tion and content) [...] Active Start: November 24, 2024 End: November 24Damir Urban ProviderActiveStart: November 24, 2024 End: November 24, 2024 [...] Care Provider Active Start: February 12, 2025 German Bhatia ProviderActiveStart: February 12, 2025 Team Status: Inactive Member Role Status Dates Broderick Howard DO Primary Care Provider Active Start: February 21, 2025 End: February 21, 2025Josefina Adams APRN SALES TEAM MANAGER-CAttending ProviderActive Start: February 21, 2025 End: February 21, [...] Active Start: September 07, 2024 End: September 07German Reed ProviderActiveStart: September 07, 2024 End: September 07, 2024 Team Status: Active Member Role Status Riccardo Howard DO Primary Care Provider Active Start: August 28, 2024 German Bhatia ProviderActiveStart: August 28, 2024 Team Status: Inactive Member Role Status Dates Broderick Howard DO Primary Care Provider Active Start: August 29, 2024 End: August 29German Alejandre ProviderActiveStart: August 29, 2024 End: August 29, 2024 [...] Provider Active Start: June 29, 2024 Alejandro Pearson ProviderActiveStart: June 29, 2024 Team Status: Inactive Member Role [...] Care Provider Active Start: June 05, 2024 Andmarija Parks , MDAttending ProviderActiveStart: June 05, 2024 Team Status: Inactive Member Role Status Dates Broderick Howard DO Primary Care Provider Active Start: June 08, 2024 End: June 08ivelisse Aguileradir , MDAttending ProviderActiveStart: June 08, 2024 End: June 08, 2024 [...] Active Start: April 21, 2024 End: April 21mynor Le MDAttending ProviderActiveStart: April 21, 2024 End: April 21, 2024 Team Status: Active Member Role Status Dates Broderick Howard DO Primary Care Provider Active Start: May 05, 2024 Marylou Buck ProviderActiveStart: May 05, 2024 Team Status: Active Member Role Status Dates Broderick Howard DO Primary Care Provider Active Start: May 15, 2024 Keith Parks MDAttending ProviderActiveStart: May 15, 2024 Team Status: Inactive Member Role Status Dates Broderick Howard DO Primary Care Provider Active Start: May 30, 2024 End: May 30, 2024Marylou Buck ProviderActiveStart: May 30, 2024 End: May 30, 2024 Team Status: Active Member Role Status Dates Broderick Howard DO Primary Care Provide r, Attending Provider Active Start: March 03, 2024 Team Status: Inactive Member Role Status Dates Broderick Howard DO Primary Care Provide r, Attending Provider Active Start: March 09, 2024 End: March 09, 2024Team MemberRelationshipSpecialtyStart DateEnd Date Broderick Howard, DO [address] [place] [address] PCP - GeneralInternal Bastqkvv12/7/18 Kitty Valente MD [address] [place] [address] Primary Staff PhysicianCardiology01/31/19Team MemberRelationshipSpecialtyStart DateEnd Date Broderick Howard, DO [address] [facility] [place] [address] PCP - GeneralInternal Veaquzon15/7/18 Kitty Valente MD [address] [place] [address] Primary Staff PhysicianCardiology01/31/19Team MemberRelationshipSpecialtyStart DateEnd Date Broderick Howard, DO [address] [facility] [place] [address] PCP - GeneralInternal Pjrwxsid10/7/18 Kitty Valente MD [address] [place] [address] Primary Staff PhysicianCardiology01/31/19Team MemberRelationshipSpecialtyStart DateEnd Date Broderick Howard, DO [address] [facility] [place] [address] PCP - GeneralInternal Kmmktixa80/7/18 Kitty Valente MD [address] [place] [address] Primary Staff PhysicianCardiology01/31/19Team MemberRelationshipSpecialtyStart DateEnd Date Broderick Howard, DO [address] [facility] [place] [address] PCP - GeneralInternal Trfgexpd11/7/18 Kitty Valente MD [address] [place] [address] Primary Staff PhysicianCardiology01/31/19 Team Status: Inactive Member Role Status Dates Broderick Howard , Primary Care Provider, Attending Pr ovider Active Team MemberRelationshipSpecialtyStart DateEnd Date Broderick Howard, DO [address] [place] [address] PCP - GeneralInternal Hthxeukk37/7/18 Kitty aVlente MD [address] [place] [address] Primary Staff PhysicianCardiology01/31/19 Team Status: Inactive Member Role Status Dates Broderick Howard DO Primary Care Provider Active Niki Weeks MDAttending ProviderActiveTeam MemberRelationshipSpecialty Start DateEnd Date Broderick Howard, [address] [place] [id number] [facility] - [facility]Hon[facility] Hospitalnal Puphfhhp49/7/18 Kitty Valente MD [address] [place] [address] Primary Staff PhysicianCardiology01/31/19Team MemberRelationshipSpecialtyStart DateEnd Date Broderick Howard DO [address] [place] [id number] PCP - GeneralHonor[facility] Rehabilitation Hospitalnal Qhgruwwg88/7/18 Kitty Valente MD [address] [place] [address] Primary Staff PhysicianCardiology01/31/19Team MemberRelationshipSpecialtyStart DateEnd Date Broderick Howard DO [address] [place] [address] PCP - GeneralInternal Wyljocux77/7/18 Kitty Valente MD [address] [place] [address] Primary Staff PhysicianCardiology01/31/19Team MemberRelationshipSpecialtyStart DateEnd Date Broderick Howard DO [address] [place] [id number] PCP - GeneralInternal Wljlmvdv72/7/18 Kitty Valente MD [address] [place] [address] Primary Staff PhysicianCardiology01/31/19Team MemberRelationshipSpecialtyStart DateEnd Date Broderick Howard DO [address] [place] [id number] PCP - GeneralInternal Bzlwsgqh61/7/18 Kitty Valente MD [address] [place] [address] Primary Staff PhysicianCardiology01/31/19 Team Status: Inactive Member Role Status Dates Broderick Howard DO Attending Provider Active Sta rt: November 24, 2023 End: November 24, 2023 Team Status: Inactive Member Role Status Dates Broderick Howard DO Primary Care Provide r, Attending Provider Active Start: February 09, 2024 End: February 09, 2024Team MemberRelationshipSpecialtyStart DateEnd Date Broderick Howard DO [address] [place] [id number] PCP - GeneralHon[facility] Hospitalnal Tkmscfoi09/7/18 Kitty Valente MD [address] [place] [address] Primary Staff PhysicianCardiology01/31/19 Team Status: Active Member Role Status Dates Broderick Howard DO Primary Care Provide r, Attending Provider Active Start: February 10, 2024 Team Status: Active Member Role Status Dates Broderick Howard DO Primary Care Provider Active Start: February 15, 2024 Al Golden ProviderActiveStart: February 15, 2024 Team MemberRelationshipSpecialtyStart DateEnd Date Broderick Howard DO [address] [place] [address] PCP - GeneralInternal Kxiovpwg88/7/18 Kitty Valente MD [address] [place] [address] Primary Staff PhysicianCardiology01/31/19Team MemberRelationshipSpecialtyStart DateEnd Date Broderick Howard DO [address] [place] [address] PCP - GeneralInternal Cvjtbaey03/7/18 Kitty Valente MD [address] [place] [address] Primary Staff PhysicianCardiology01/31/19Team MemberRelationshipSpecialtyStart DateEnd Date Broderick Howard DO [address] [place] [address] PCP - GeneralInternal Tpwgfnha68/7/18 Kitty Valente MD [address] [place] [address] Primary Staff PhysicianCardiology01/31/19Team MemberRelationshipSpecialtyStart DateEnd Date Broderick Howard MD [address] [place] [address] PCP - GeneralInternal Medicine05/03/24Team MemberRelationshipSpecialtyStart Date End Date Broderick Howard MD [address] [place] [id number] PCP - GeneralInternal Medicine05/03/24Team MemberRelationshipSpecialtyStart Date End Date Broderick Howard DO [address] [place] [address] PCP - GeneralInternal Mcornrzx64/7/18 Kitty Valente MD [address] [place] [address] Primary Staff PhysicianCardiology01/31/19Team MemberRelationshipSpecialtyStart DateEnd Date Broderick Howard DO [address] [place] [address] PCP - GeneralInternal Xumlhuwc62/7/18 Kitty Valente MD [address] [place] [address] Primary Staff PhysicianCardiology01/31/19Team MemberRelationshipSpecialtyStart DateEnd Date Broderick Howard DO [address] [place] [address] PCP - GeneralInternal Frslwvyk01/7/18 Kitty Valente MD [address] [facility] [facility] [place] [address] Primary Staff PhysicianCardiology01/31/19 Team Status: Inactive Member Role Status Dates Broderick Howard DO Primary Care Provider Active Start: February 22, 2025 End: February 22German Reed ProviderActiveStart: February 22, 2025 End: February 22, 2025Team MemberRelationshipSpecialtyStart DateEnd Date Broderick Howard DO [address] [place] [address] PCP - GeneralInternal Xciryoil57/7/18 Kitty Valente MD [address] [place] [address] Primary Staff PhysicianCardiology01/31/19 Team Status: Inactive Member Role Status Dates Broderick Howard DO Primary Care Provider Active Start: July 02, 2025 End: July 02wolf Howard DOAttsumaya ProviderActiveStart: July 02, 2025 End: July 02, 2025Team MemberRelationshipSpecialtyStart DateEnd Date Broderick Howard DO [address] [place] [address] PCP - GeneralInternal Vyamiund91/7/18 Kitty Valente MD [address] [place] [address] Primary Staff PhysicianCardiology01/31/19 Team Status: Active Member Role Status Dates Broderick Howard DO Primary Care Provider Active Start: July 23, 2025 Tiana Brush NP-COther ProviderActiveStart: July 23, 2025 Leandra Gama MDAttending ProviderActiveStart: July 23, 2025 Team Status: Inactive Member Role Status Dates Broderick Howard DO Primary Care Provider Active Start: August 01, 2025 End: August 01penny Brush NP-CAttending ProviderActiveStart: August 01, 2025 End: August 01, 2025 Team Status: Active Member Role Status Dates Broderick Howard DO Primary Care Provider Active Start: August 06, 2025 Katinaimelda Ordoñez , MDAttending ProviderActiveStart: August 06, 2025 Team Status: Inactive Member Role Status Dates Broderick Howard DO Primary Care Provider Active Start: August 15, 2025 End: August 15bdimelda Ordoñez , MDAttending ProviderActiveStart: August 15, 2025 End: August 15, 2025 Team Status: Inactive Member Role Status Dates Broderick Howard DO Primary Care Provider Active Start: August 28, 2025 End: August 28, 2025Matheus Sheriff ProviderActiveStart: August 28, 2025 End: August 28, 2025 INFORMATION SOURCE (unrecogn ized section and content) DATE CREATED AUTHOR 07/24/2022 [facility] DATE CREATED AUTHOR 'Tina BERNSTEIN 04/23/2023 [facility] DATE CREATED AUTHOR AUTHOR'S ORGANIZ ATION 06/11/2023 [facility] DATE CREATED AUTHOR AUTHOR'S ORGANIZ ATION 10/26/2024 [facility] DATE CREATED AUTHOR AUTHOR'S ORGANIZ ATION 10/28/2024 [facility] DATE CREATED AUTHOR AUTHOR'S ORGANIZ ATION 11/05/2024 [facility] DATE CREATED AUTHOR AUTHOR'S ORGANIZ ATION 11/06/2024 [facility] DATE CREATED AUTHOR AUTHOR'S ORGANIZ ATION 11/08/2024 [facility] DATE CREATED AUTHOR AUTHOR'S ORGANIZ ATION 12/15/2024 [facility] DATE CREATED AUTHOR AUTHOR'S ORGANIZ ATION 05/24/2025 [facility] DATE CREATED AUTHOR AUTHOR'S ORGANIZ ATION 05/31/2025 [facility] DATE CREATED AUTHOR AUTHOR'S ORGANIZ ATION 07/19/2025 [facility] DATE CREATED AUTHOR AUTHOR'S ORGANIZ ATION 08/05/2025 [facility] DATE CREATED AUTHOR AUTHOR'S ORGANIZ ATION 08/31/2025 [facility] Goals (unrecognized section and content) Goals [...] BE BASED ON THE PRIMARY CLINICAL RECORDS. [facility]. provides no warranty or guarantee of the accuracy or completeness of information in this document.
--- NOTE | 2025-09-06 10:35 | PM.CN ---
Consult Note: HPI Data of Consult Patient: known to practice within the last 3 years Requesting Physician: Tiana Brush NP Primary Care Provider: Broderick Joiner, DO Consult Narrative Reason for consult: low back and right leg pain Narrative: Cassi Rodrigez a pleasant 75 year old female presents for evaluation of low back and right leg pain, status post lumbar laminectomy 08/[address] Weeks and laminectomy/fusion With Dr Bishop 11/07 with worsening right leg pain since per pt. pain today 8/10 increasing with standing, walking, pushing, pulling, bending, activity. recently underwent updated lumbar MRI with results in chart. pt was advised not to attempt PT post op by NS. pt denies falls or injury. has failed tylenol, gabapentin, lyrica, and flexeril. on coumadin and has CKD cannot take NSAIDs. Unfortunately Dr Weeks is no longer practicing and the pt/PCP have been unable to make contact with Dr Bishop, we have since referred her to [facility] and pending consultation next week. she recently underwent right L4-5 L5-S1 TFESI with no improvement while anesthetized or ongoing. cc:: CC: Tiana Brush NP [facility] Medical History (Updated 07/04/25 @ 14:57 by Tiana Brush NP) Low back pain ?M54.50 - Low back pain, unspecified (ICD-10) Osteoarthritis ?M19.90 - Unspecified osteoarthritis, unspecified site (ICD-10) Pancreatic cancer ?C25.9 - Malignant neoplasm of pancreas, unspecified (ICD-10) Seizure ?R56.9 - Unspecified convulsions (ICD-10) Acid reflux ?K21.9 - Gastro-esophageal reflux disease without esophagitis (ICD-10) Bradycardia ?R00.1 - Bradycardia, unspecified (ICD-10) Asthma ?J45.909 - Unspecified asthma, uncomplicated (ICD-10) Hypertension ?I10 - Essential (primary) hypertension (ICD-10) Surgical History S/P placement of cardiac pacemaker ?Z95.0 - Presence of cardiac pacemaker (ICD-10) 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) ?Z90.49 - Acquired absence of other specified parts of digestive tract (ICD-10) S/P brain surgery ?Z98.890 - Other specified postprocedural states (ICD-10) H/O lumbosacral spine surgery ?Z98.890 - Other specified postprocedural states (ICD-10) H/O cervical spine surgery ?Z98.890 - Other specified postprocedural states (ICD-10) Status post shoulder surgery ?Z98.890 - Other specified postprocedural states (ICD-10) Hx of cholecystectomy ?Z90.49 - Acquired absence of other specified parts of digestive tract (ICD-10) History of appendectomy ?Z90.49 - Acquired absence of other specified parts of digestive tract (ICD-10) Meds Home Medications and Allergies Home Medications ?Medication ?Instructions ?Recorded ?Confirmed ?Type carvedilol 12.5 mg tablet 12.5 mg PO BID 05/04/24 08/27/25 History levetiracetam 750 mg tablet 750 mg PO BID 05/04/24 08/27/25 History losartan 25 mg tablet 25 mg PO DAILY 05/04/24 08/27/25 History omeprazole 40 mg capsule,delayed 40 mg PO DAILY 05/04/24 08/27/25 History release ondansetron 4 mg disintegrating 4 mg PO DAILY PRN nausea and 05/04/24 08/27/25 History tablet vomiting venlafaxine 150 mg 150 mg PO DAILY 05/04/24 08/27/25 History capsule,extended release 24 hr warfarin 4 mg tablet 4 mg PO DAILY 05/04/24 08/27/25 History zonisamide 100 mg capsule 300 mg PO .qhs 05/04/24 08/27/25 History amlodipine 5 mg tablet 5 mg PO DAILY 07/04/25 08/27/25 History doxycycline hyclate 100 mg capsule 100 mg PO Q12H 07/04/25 08/27/25 History ergocalciferol (vitamin D2) 1,250 1,250 mcg PO QWEEK 07/04/25 08/27/25 History mcg (50,000 unit) capsule ferrous sulfate 325 mg (65 mg 325 mg PO 07/04/25 History iron) tablet linaclotide 72 mcg capsule 72 mcg PO DAILY 07/04/25 08/27/25 History (Linzess) tramadol 50 mg tablet 50 mg PO BID PRN pain #14 tabs 08/08/25 08/27/25 Rx Allergies Allergy/AdvReac Type Severity Reaction Status Date / Time dexamethasone Allergy Unknown Rash Verified 08/27/25 10:49 pregabalin (From Lyrica) Allergy Unknown Rash Verified 08/27/25 10:49 Exam Constitutional Documenting provider has reviewed patient's vital signs: yes Common normals: no apparent distress, oriented x3, healthy appearing, alert and well nourished General appearance: cooperative HENMT Common normals: normocephalic, hearing grossly normal bilaterally and moist oral mucous membranes Head and scalp: normocephalic Eye Common normals: PERRL Pupil: PERRL Neck & C-Spine Common normals: full ROM General: normal visual inspection Chest Common normals: inspection of chest normal Respiratory Common normals: normal respiratory effort, no retractions and no use of accessory muscles Back & Pelvis Lumbar spine/lower back: ROM limited, pain with ROM, lumbar spinal tenderness, paraspinal muscle tenderness and straight leg raise positive right; straight leg raise negative left Sacroiliac joints: SI joint(s) abnormal Other: right sij positive emmy(patricks), gaenslens, thigh thrust, compression test decreased sensation to right L4,5,S1 pattern strength 4/5 in RLE 5/5 in LLE Extremity Common normals: normal to inspection and full ROM Neuro Common normals: oriented x3 Sensorium/orientation: alert Gait (neuro): assistive device used cane Motor exam: no movement abnormalities noted and strength abnormal Psych Common normals: mental status grossly normal, thought process normal, cooperative, affect normal, speech normal and activity/motor behavior normal Speech: normal speech Thought process: normal thought process Results Additional Findings Additional findings: If on a controlled substance or opioids, I have checked an [place] report on this patient and there are no aberrancies noted in the prescribing history.??If on a controlled substance or opioid a drug screen was completed and reviewed within the last year, and if there has not been a drug screen completed we ordered one today to monitor higher risk, state monitored pain medication use. As part of providing excellent, safe, comprehensive care, the following was completed at our patient's visit: 1. A medication reconciliation and review to ensure accurate knowledge of current/active medications, including asking our patients to inform us about any [id number] medications or herbal remedies/nutritional supplements/alternative remedies. 2. A review to specifically ensure our patients have had annual screening for screening for depression, screening for tobacco use, and screening for unhealthy alcohol use. For concerning screenings had a discussion with the patient, provided patient education, and recommended follow-up with primary care provider when appropriate. If patient noted with a risk of falling, they received education on strength, gait, and balance training to prevent future risk of falling. Portions of this note may have been carried over from the previous visit and updated as appropriate. Please note this office utilizes paper charting in addition to the electronic medical record. A list of current medications, vitals, and PMH is available there as the clinical staff outside of myself do not have access to Review Trackers charting during the clinic day operations. As part of providing quality comprehensive care the current medications, vitals, and PMH were reviewed in the paper chart. Assessment and Plan Assessment and Plan (1) Post laminectomy syndrome: Assessment and Plan: The patient has had over 3 months of moderate to severe low back and right leg pain with functional impairment and inadequate response to conservative care including NSAIDS (unless there are contraindication such as concurrent blood thinners), multiple oral or topical pain medications The Oswestry Disability Index was completed, and the patient scored a 48%.? The patient noted the following:?? moderate to severe pain impacting ADLs, sitting, standing, sleeping, social life, travel (2) Failed back syndrome: (3) Lumbosacral radiculopathy: (4) Lumbar stenosis with neurogenic claudication: Plan pending consultation with NS increase tramadol 100mg BID PRN moderate to severe pain defer gabapentin/lyrica due to zonegran 300mg for seizures cannot take NSAIDs on coumadin, does have a pacemaker defer right SIJ injection under fluoroscopy at this time, will converse with NS team.
== END 2025-09-06 10:05 | disposition home or self-care (01) ==
LOC: PM 10:05
PROVIDERS: PCP Internal Medicine; Visit Provider Nurse Practitioner
DX: M96.1 Postlaminectomy syndrome, not elsewhere classified (principal); M54.16 Radiculopathy, lumbar region; M48.062 Spinal stenosis, lumbar region with neurogenic claudication
CPT/HCPCS: G0463

== ENCOUNTER 2025-09-15 | Outpatient (RCR) | payer MEDICARE, SELFPAY | END 2025-10-14 23:59 | disposition home or self-care (01) | LOC: MM | PROVIDERS: PCP Internal Medicine; Visit Provider Internal Medicine | DX: Z51.81 Encounter for therapeutic drug level monitoring (principal); Z79.01 Long term (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 of anticoagulants; I82.409 Acute embolism and thrombosis of unspecified deep veins of unspecified lower extremity | CPT/HCPCS: 85610; G0463 ==

== ENCOUNTER 2025-10-12 02:37 | Emergency (ER) | payer MEDICARE, SELFPAY ==
--- OUTSIDE RECORDS SUMMARY | 2025-10-09 06:01 | XMS_ITS | Continuity of Care Document ---
Author Organization [facility] Address [address] [place] [address] Phone Care Team Providers Care Study Specialist Name Role Phone Broderick Joiner DO Primary Care Provider Tiana Brush NP-C Other Provider [phone] Leandra Gama MD Attending Provider [phone] Tiana Brush NP-C Attending Provider Luc Ordoñez Attending Provider Hank Maher APRN Attending Provider Broderick Joiner DO Attending Provider [phone] Low Littlejohn DO Attending Provider Low Littlejohn DO Other Provider Huy Sen MD Attending Provider Care Teams Patient Care Team Team Status: Active Member Role/Relationship Status Dates Broderick Joiner DO Primary Care Provider Active Visit Care Team Team Status: Active Member Role/Relationship Status Dates Broderick Joiner DO Primary Care Provider Active Start: July 23, 2025 Tiana Brush NP-COther ProviderActiveStart: July 23, 2025 German Urbano ProviderActiveStart: July 23, 2025 Visit Care Team Team Status: Inactive Member Role/Relationship Status Dates Broderick Joiner DO Primary Care Provider Active Start: August 01, 2025 End: August 01JACOBY RojasCAttending ProviderActiveStart: August 01, 2025 End: August 01, 2025 Visit Care Team Team Status: Active Member Role/Relationship Status Dates Broderick Joiner DO Primary Care Provider Active Start: August 06, 2025 Katinaimelda Ordoñez MDAttending ProviderActiveStart: August 06, 2025 Visit Care Team Team Status: Inactive Member Role/Relationship Status Dates Broderick Joiner DO Primary Care Provider Active Start: August 15, 2025 End: August 15bdimelda Ordoñez MDAttending ProviderActiveStart: August 15, 2025 End: August 15, 2025 Visit Care Team Team Status: Inactive Member Role/Relationship Status Dates Broderick Joiner DO Primary Care Provider Active Start: August 28, 2025 End: August 28, 2025Matheus Sheriff ProviderActiveStart: August 28, 2025 End: August 28, 2025 Visit Care Team Team Status: Inactive Member Role/Relationship Status Dates Broderick Joiner DO Primary Care Provider Active Start: September 06, 2025 End: September 06enmary jo Joiner DOAttending ProviderActiveStart: September 06, 2025 End: September 06, 2025 Visit Care Team Team Status: Inactive Member Role/Relationship Status Dates Broderick Joiner DO Primary Care Provider Active Start: September 10, 2025 End: September 10, 2025Low Littlejohn DOAttending ProviderActiveStart: September 10, 2025 End: September 10, 2025 Visit Care Team Team Status: Active Member Role/Relationship Status Dates Broderick Joiner DO Primary Care Provider Active Start: October 03, 2025 Low Littlejohn DOOther ProviderActiveStart: October 03, 2025 Huy Sen MDAttending ProviderActiveStart: October 03, 2025 Patient Care Team Team Status: Inactive Member Role/Relationship Status Dates Broderick Joiner DO Primary Care Provider Active Start: October 09, 2025 End: October 09, 2025Matheus Sheriff ProviderActiveStart: October 09, 2025 End: October 09, 2025 Chief Complaint and Reason for Visit Chief Complaint Admit Date Z95.0 July 23, 2025 8:48am M96.1 M48.062 M54.17 August 01 7:15am renal 6 month f/u August 15, 2025 9: 36am 1 year follow up August 28, 2025 9 :35am Flu Shot September 06, 2025 1 0:45am POSTLAMINECTOMY SYNDROME September 10, 2 025 8:51am R20.2 October 03, 2025 10:59am 6wk Nausea October 09, 2025 10:14am Reason for Visit Admit Date Anemia of renal disease August 15 9:36am CKD (chronic kidney disease) stage 4, GF R 15-29 ml/min August 15, 2025 9:36am GERD (gastroesophageal reflux disease) O ctober 2024 9:36am Hypertensive chronic kidney disease with stage 1 through stage 4 chronic ki August 15, 2025 9:36am Secondary hyperparathyroidism August 9:36am GERD (gastroesophageal reflux disease) O ctober 2024 9:35am History of pancreatic cancer August 9:35am History of Whipple procedure August 9:35am IBS (irritable colon syndrome) August 152024 9:35am Nausea August 28, 2025 9 :35am Post laminectomy syndrome September 10, 2025 8:51am GERD (gastroesophageal reflux disease) N ovember 2024 10:14am Nausea October 09, 2025 10:14am Allergies, Adverse Reactions, Alerts Allergen Type Severity Reaction Last Updated Verified Status dexamethasone Allergy Unknown Rash October 09, 2025 10:28a m Yes Active pregabalin Allergy Unknown Rash October 09, 2025 10:28am Y es Active rifaximin Allergy Unknown rash October 09, 2025 10:28am Ye s Active Social History Smoking Status Status Start [...] of breast Unknownfamily memberDeceasedUnknown Problems Active Problems Problem Diagnosis/Recorded Date Onset Date Status C omments History of DVT (deep vein thrombosis) July 20, 2023 10:16am Unknown Active Bilateral lower extremity edemaApril 2024 1:16pmUnknownActivePostoperative pain after spinal surgeryApril 2023 11:23amUnknownActiveHistory of Whipple procedureOctober 2024 2:28pmUnknownActiveLumbosacral spondylosis with radiculopathyMay 2023 9:31pmUnknownActiveGastroesophageal reflux disease with esophagitis without hemorrhageMarch 2023 10:12amUnknownActiveMajor depressionAugust 2023 12:21pmUnknownActiveMajor depression, recurrentMarch 2023 10:12amUnknownActiveObstructive sleep apneaMarch 2023 10:12am UnknownActiveGreater trochanteric bursitis of both hipsJune 2023 9:48am UnknownActiveAdhesive capsulitis of left shoulderMarch 2023 10:12amUnknown ActiveAge-related osteoporosis without current pathological fractureMarch 2023 10:12amUnknownActiveSwelling of right lower extremityOctober 2023 2:48pmUnknownActiveEpilepsyMarch 2023 10:12amUnknownActiveMigraine headache with auraMarch 2023 10:12amUnknownActiveLow back painAugust 2023 12:15pmUnknownActiveSecondary hyperparathyroidismJuly 2023 1:53pm UnknownActivePain of both sacroiliac jointsJune 2023 9:47amUnknownActive Paresthesia of skinMarch 2023 10:12amFebruary 2018ActivePancreatic cancerSeptember 2022 10:18amUnknownActivesurgery, chemo, radiationEpilepsy seizure, generalized, convulsiveMarch 2023 10:12amUnknownActive OsteoporosisMarch 2023 10:12amUnknownActiveCKD (chronic kidney disease) stage 4, GFR 15-29 ml/minJuly 2023 11:38amUnknownActiveCurrent use of fpc anticoagulationMarch 2023 10:12amUnknownActiveHypertensive chronic kidney disease with stage 1 through stage 4 chronic kidney disease, or unspecif ied chronic kidney diseaseJuly 2023 1:53pmUnknownActiveHistory of lumbar surgeryJune 2023 9:48amUnknownActiveLeukopeniaJuly 2023 1:53pmUnknown ActiveChronic kidney diseaseApril 2023 9:46pmUnknownActiveCervical spondylosisMarch 2023 8:21pmUnknownActiveArthropathy of right hipJune 2023 9:47amUnknownActivePost laminectomy syndromeAugust 2023 12:16pm UnknownActiveNontoxic single thyroid noduleMarch 2023 10:12amUnknownActive History of pancreatic cancerAugust 2023 12:20pmUnknownActiveHistory of pancreatic cancerOctober 2024 2:28pmUnknownActiveGERD (gastroesophageal reflux disease)August 29, 2024 10:07amUnknownActiveAnemia of renal disease June 08, 2024 1:52pmUnknownActiveIrritable bowel syndrome with constipation February 08, 2024 10:12amUnknownActiveHypertensionSeptember 2022 10:13am UnknownActiveNauseaOctober 2024 8:46amUnknownActiveVitamin D deficiency February 08, 2024 10:12amUnknownActiveIBS (irritable colon syndrome)September 11, 2025 2:27pmUnknownActiveLumbar spondylosisMay 2023 9:29pmUnknownActive AsthmaMarch 2023 10:12amUnknownActiveLumbar stenosis with neurogenic claudicationMarch 2023 8:20pmUnknownActiveInactive/Resolved Problems Problem Diagnosis/Recorded Date Onset Date Status C omments H/O cardiac pacemaker February 08, 2024 10:12am Unknown Resolved Abdominal hematomaJanuary 2024 4:46pmUnknownResolved Medications Medication Status Dose Units Route Directions Qty Days Refills S tart Date Stop Date End Date Reason(s) Instructions Adherence Amlodipine 5 mg tablet Discontinued 5 MG PO Every morning 90 90 3 February 02, 2024 12:08pm February 13, 2025 6:42amhtnLosartan 25 mg wfkhmnIjjjykpcodrz45PAGXNfgml 903March 2023 12:09pmDecember 2023 5:58pmhtnVenlafaxine 150 mg capsule,extended release 50fpRiarpgaadofz5.ROUTE.RKLBPBK730Ntqdm 2023 12:31pmOctober 2023 6:38pmTAKE 1 CAPSULE BY MOUTH EVERY DAYTramadol 50 mg kcbsuzNedwqtvxlmqf87WOMPNrgrq daily as needed for otyx47162Hsi 2023 2:16pm October 27, 2024 9:00amSpondylosis of lumbosacral spine with radiculopathy Other spondylosis with radiculopathy, lumbosacral regionCarvedilol 12.5 mg tabletDiscontinued0.ROUTE.FHJPXWW9680Gynj 2023 5:47amOctober 2023 8:21amTAKE 1 TABLET BY MOUTH TWICE A DAYOndansetron 4 mg tablet,disintegrating Discontinued0.ROUTE.MNHEQXR942Gqow 2023 7:49amJuly 2024 12:13pm DISSOLVE 1 TABLET IN MOUTH EVERY 6 HOURS NEEDED FOR NAUSEAVenlafaxine 150 mg capsule,extended release 75kbEvkcplsqdhgz0.ROUTE.NZUOHOS687Nvoexem 2023 6:38pmApril 2024 6:42amTAKE 1 CAPSULE BY MOUTH EVERY DAYLosartan 25 mg hqvranSsubojffbjvf27TQNEAhzbu uvskdkx93600Ugmrakmt 25th, 2024 5:58pmDecember 2023 2:47pmhtnLosartan 25 mg pstvgtJghrlj84WVKREzsdi nuttriu5624822 November 12, 2024 2:46pmhtnComplies with drug therapyWarfarin 4 mg tablet Active0.ROUTE.FVQFXKV532Onessws 2024 1:07pmTAKE 1 TABLET BY MOUTH EVERY DAY DIRECTED BY [facility] 90Complies with drug therapyDoxycycline Hyclate 100 mg foimkjdNgntxkysngdc191TLQCLptxr ivijb24961Qhmenuf 2024 12:00amApril 2024 1:07pmAmlodipine 5 mg tabletDiscontinued0.ROUTE.WZHEIMO221Lgyzl 2024 6:42amApril 2024 9:43amTAKE 1 TABLET BY MOUTH EVERY MORNING FOR HYPERTENSIONVenlafaxine 150 mg capsule,extended release 23stGoxjyasocfeg9.ROUTE .CKNKNZM402Sshfd 2024 6:42amApril 2024 9:43amTAKE 1 CAPSULE BY MOUTH EVERY DAYFerrous Sulfate 325 mg (65 mg iron) tabletDiscontinued0.ROUTE.BPCJKYU01 1April 2024 7:41amSeptember 2024 9:05amTAKE 1 TABLET BY MOUTH EVERY 48 HOURSCarvedilol 12.5 mg tabletDiscontinued0.ROUTE.HDMTEBU3303Mon 2024 4:07pmOctober 2024 8:48amTAKE 1 TABLET BY MOUTH TWICE A DAYErgocalciferol (Vitamin D2) 1,250 mcg (50,000 unit) capsuleDiscontinued0.ROUTE.ERIFQLH120Xcu 2024 8:33amOctober 2024 8:48amTAKE 1 CAPSULE BY MOUTH ONCE EVERY WEEK Ondansetron 4 mg tablet,disintegratingActive0.ROUTE.CNDUPGE688Qmzw 2024 12:13pmDISSOLVE 1 TABLET IN MOUTH EVERY 6 HOURS NEEDED FOR NAUSEAComplies with drug therapyVenlafaxine 150 mg capsule,extended release 81tdMzvaruwvqxdd7 .ROUTE.JCTMNYZ622Xczbjeykk 2024 5:54amOctober 2024 8:48amTAKE 1 CAPSULE BY MOUTH EVERY DAYFerrous Sulfate 325 mg (65 mg iron) tabletActive0 .ROUTE.TWRYYEI338Yxdehoour 2024 9:05amTAKE 1 TABLET BY MOUTH EVERY 48 HOURSComplies with drug therapyFurosemide 20 mg tabletDiscontinued0.ROUTE .VMHDZPX920Hxwwllq 2024 7:59amOctober 2024 8:48amTAKE 1 TABLET BY MOUTH EVERY DAYOmeprazole 40 mg capsule,delayed release(DR/EC)Active0.ROUTE .QBYRZQD658Risnefo 2024 2:37pmTAKE 1 CAPSULE BY MOUTH 30 MINUTES BEFORE THE MORNING MEAL FOR GERDComplies with drug therapyCarvedilol 12.5 mg tablet Mjymbkjomkqk42.5MGPOTwice dailySeptember 2022 11:00pmMarch 2023 10:21amAmlodipine 5 mg ojxxilFvgnydrjbbwr7KCXJRecys morningSeptember 2022 11:00pmMarch 2023 12:08pmhtnAmitriptyline 10 mg bkhifrThpbsoduhwxp53MQBN Daily at bedtimeSeptember 2022 11:00pmJuly 2023 1:32pmnauseaWarfarin 2 mg XrwiqeDrucvkztwsqg2QZBAhahsf Wednesday, Wednesday, Wednesday, and Sundayseptember 2022 11:00pmMarch 2023 10:26amOmeprazole 40 mg capsule,delayed release(DR/EC)Xcimnamaitjr36TZMDEljeg morningSeptember 2022 10:46amOctober 2023 10:05amgerdLosartan 25 mg yqkgikEydzjisrrisz43EVMAZblbs morning July 19, 2023 11:00pmMar 2023 12:09pmhtnVenlafaxine 150 mg capsule,extended release 97buWdacfkdqxtgc379EQJBFyipb morningSeptember 2022 11:00pmMar 2023 10:23amAcetaminophen (Tylenol Extra Strength) 500 mg BgjofpdDlvuiiktkhkh7443OYSHO1X as needed for PainSeptember 2022 11:00pm February 08, 2024 10:20amEnoxaparin (Lovenox) 100 mg/mL VvoxzctWyvlycvgvelf26HJ SUBCUTDailySeptember 2022 11:00pmJuly 2023 1:29pmTizanidine 4 mg XtlfblXurdctafopyr0KZOFSszdo daily as needed for Muscle Oigzs03973Uxzadxwxu 20th, 2023 11:00pmMar 2023 10:24amHydrocodone-Acetaminophen 5-325 mg VpaoroAbrwzuvndsva3UKHOID2I as needed for Pain Scale 1 - 858728Bxxmvtrfe 2022March 2023 10:22amSpinal stenosis of lumbar region with neurogenic claudication Spinal stenosis, lumbar region with neurogenic claudicationAmitriptyline 10 mg gveyonTpmknyuqjzeo24SMPJMzqno at bedtimeJuly 2023 1:28pmOctober 2023 8:18amnauseaLinaclotide (Linzess) 72 mcg jodrhnsScedidgljzry50FFMGBIocgoHsdwfuu 2024 12:00amApril 2024 9:43amLinaclotide (Linzess) 72 mcg capsule Dqjfda17PDPUWIuvmc as neededApril 2024 9:43amComplies with drug therapy Venlafaxine 75 mg capsule,extended release 47dqJyikvccaduvx60CIBYGiqivGbrqnpes 2020 12:00amSeptember 2022 10:47amOmeprazole 40 mg capsule,delayed release(DR/EC)Vqzuryldqqte77LAHZLslfmNsitdvdx 2020 12:00amFebruary 2020 10:13amTramadol 50 mg mzutunPypikpwjunsj33CENEZcafmNijisqll 2020 12:00amSeptember 2022 10:48amWarfarin 4 mg gfwdykSrcrescwepnq8XDZWyiqxv Wednesday, and WednesdayFebruary 2020 12:00amJanuary 2024 1:07pmZonisamide 100 mg fcfiunmCquvpzjawbec246VAWTXvslnDixqujsj 2020 12:00amMarch 2023 2:12pmseizuresAmlodipine 10 mg hsjcunFvxxczwehqwv61OQLI DailyFebruary 2020 12:00amSeptember 2022 10:41amNaproxen Sodium (Aleve) 220 mg HnqpqfDmbmivlwvolf057FDRUWevtm daily as needed for PainFebruary 2020 12:00amSeptember 2022 10:48amHydralazine 50 mg tablet Ubxfkndbuzdq98FAZZSx DirectedFebruary 2020 12:00amSeptember 2022 10:41amLevetiracetam 750 mg jezucxPqmhvpwtwduo802LLUXPjtnv dailyFebruary 2020 12:00amMarch 2023 10:22amseizuresOndansetron 4 mg tablet,vrfiwxgrljpdpqPevgfrrtlwor9VSLEP1W as needed for NauseaFebruary 2020 12:00amJuly 2023 7:49amMelatonin 5 mg ZshtgkQlqosfuodkrb6KGLSIfybtyu as needed for InsomniaFebruary 2020 12:00amSeptember 2022 10:48am Omeprazole 40 mg capsule,delayed release(DR/EC)Hnizjnxnnlhb82KPOPXmhnu yrylc934 January 06, 2021 12:00amSeptember 2022 10:46amZonisamide 100 mg capsule Blpsac797ZLMFLhwecTblax 2023 2:12pmseizuresComplies with drug therapy Amlodipine 5 mg tbxynjSvofqwdllphj2QCMQKcgygBflet 2023 11:00pmJuly 2023 1:29pmCarvedilol 12.5 mg rghpxeIdurflepsjcu89.5MGPOTwice dailySt. [facility]2023 11:00pmJuly 2023 5:47amHydrocodone-Acetaminophen 5-325 mg tablet Fjzfiesimahp9VLKRGYmvhg 8 hours as utdwwr3Teqhz 2023 11:00pmMay 2023 1:00pmLevetiracetam 750 mg bfcetmPykgkw538JDFIDbgno 12 hoursU[facility] 11:00pmComplies with drug therapyVenlafaxine 150 mg capsule,extended release 24jlXbgfjxesqvhl740ICWXAbltoNolnu 2023 11:00pmApril 2023 12:31pm Venlafaxine 75 mg zpwlurUgdjixxaqqrr07GENUQpsjjQjbqr 2023 11:00pmJuly 2023 1:30pmMupirocin 2 % ymmiqcjqWzqbwzzmvrej6SESGHQMFOOCCPTheuv daily February 07, 2024 11:00pmJuly 2023 1:30pmLinaclotide 72 mcg capsule Wootbitcnqef59TJFOIJefvzCpoor 2023 11:00pmJuly 2023 1:32pm Linaclotide 72 mcg keekjmgUbsvylntpeei69MNSLYZrnxy as neededJuly 2023 1:32pmOctober 2023 10:05amDoxycycline Monohydrate 100 mg capsule Pfdnapefwvsh306EWXAOdsog tpxtl65466Eomlb 2024 11:00pmAugust 2024 1:58pmEdema of both lower extremities Localized edemaAmitriptyline 50 mg hbpyclDzrqed11AZYIGbhdk at ifywveh519907 October 09, 2025 12:00amComplies with drug therapyAmitriptyline 50 mg tablet Xskmpfkddmzh54KRUEKreug at tljimxf926800Wszaocw2023 11:00pmOctober 2024 8:46amTake 1 tablet orally at bedtime.Linaclotide 72 mcg capsule Touhypdtwgcv06GAVYRTorvo637569Jmadtdl 15th, 2024 10:04amOctober 2023 8:21amOmeprazole 40 mg capsule,delayed release(DR/EC)Lkfswjdpjpkf72WEKVBiwei lqnpmnm563098Cphdxra 15th, 2024 10:05amOctober 2024 2:37pmgerdTake 1 capsule orally 30 minutes before morning meal.Tramadol 50 mg tabletDiscontinued 50MGPOTwice daily as needed for wcut83058Plx 2023 11:00pmMay 2023 2:17pmSpondylosis of lumbosacral spine with radiculopathy Other spondylosis with radiculopathy, lumbosacral regionCyclobenzaprine 5 mg ibxtzfXhzmmpecwlok1YWJSDenur dailyAugust 2023 11:00pmOctober 2023 9:53amCyclobenzaprine 5 mg sbowqsWrzrxtbbheeo7TYKEPrmqv daily as neededOctober 2023 9:52amDecember 2023 8:59amCarvedilol 12.5 mg tabletDiscontinued 12.5MGPOTwice dailyOctober 2023 8:19amMay 2024 4:13pmLinaclotide 72 mcg eiccuchRdjfktdfoyvg50YHXFOTxqjn as neededOctober 2023 8:21amDecember 2023 9:00amFerrous Sulfate 325 mg (65 mg iron) dxnrvvUzfiwoiabusz117RTQJ Every 48 qnahz475Qdymmue 2023 11:00pmApril 2024 7:42amErgocalciferol (Vitamin D2) 1,250 mcg (50,000 unit) xwawpunRqyfgaytgkyg2910WWDRPptkqo efmv915 September 06, 2024 11:00pmMay 2024 8:33amAmlodipine 5 mg lpwqpqEqhzlg6GSPF DailyApril 2024 9:42amComplies with drug therapyVenlafaxine 150 mg capsule,extended release 78yuIvhudwtdsvsi172NREWOzduaDtwvu 2024 9:43am August 09, 2025 5:54amFurosemide (Lasix) 20 mg grmrcfMnhngvpcmlsn48ISDJ Evdyx897Vexfm 2024 11:00pmOctober 2024 7:59amCephalexin 500 mg capsule Jtxkcinpngtb028SROXTjonn times itwbo1401Dibsmmh 2024 12:00amJanuary 2024 1:56pmCarvedilol 12.5 mg iefbldIzpsot33.5MGPOTwice dailyOctober 2024 8:46amComplies with drug therapyErgocalciferol (Vitamin D2) 1,250 mcg (50,000 unit) rnnolbcHsdykr02164BTVLZPzsxvy weekOct2024 8:47amComplies with drug therapyFurosemide 20 mg hnjazvWlkkpizzhujg27NRKOZarph morningOctober 2024 8:47amOctober 2024 8:48amVenlafaxine 150 mg capsule,extended release 91smEduvou592MJHFUyxow morningOctober 2024 8:48amComplies with drug therapy Immunizations Immunization Event Date Not Given Reason Dose Number Dismantler Lot Number Reason(s) Given Vaccine Information Statement (VIS) Detail Administration Location COVID-19 mRNA-1273 (Moderna) December 17, 2020 COVID-19 mRNA-1273 (Moderna)January 14OVID-19 mRNA-1273 (Moderna)September 10, 2021Fluzone TIV High-Dose 65YR+August 29, [id number] [facility]Fl[facility] High-Dose 65YR+September 06, 2025U8800CAFPG [facility] Austininfluenza, unspecified formulationOctober 2017influenza, unspecified formulationOctober 2018influenza, unspecified formulationOctober 2019 influenza, unspecified formulationSeptember 2020influenza, unspecified formulationSeptember neumococcal Polysacc. Vaccine, 23 valentMarch 2017 Procedures Procedure Date Performed Status MR lumbar spine wo con August 01, 2025 6:17 am completed Relevant Diagnostic Tests and/or Laboratory Data Laboratory Results Test Collection Date/Time Result Date/Time Result Interpretation Reference Range Result Comment Performing Site Urine Other Casts August 06, 2025 7:51am NONE SEEN #/LPFNONE SEENUrine Random CreatinineSeptember 2024 7:51am August 06, 2025 7:78pr841.50 mg/dL20.00-300.00Magnesium LevelSeptember 2024 8:01amSeptember 2024 8:01am2.1 mg/dL1.8-2.4Uric AcidSept2024 8:01amSept2024 8:01am5.1 mg/dL2.6-6.0Anion GapSept2024 8:01amSeptember 2024 8:01am16.2Iron SaturationSept2024 8:01amSept2024 8:01am30.2 %Parathyroid Hormone (Intact) August 06, 2025 8:01amSept2024 8:06ex505 pg/mLAbnormal (applies to non-numeric results)Performed at: - [facility] [id number] Director: Junaid Sawyer PhD, Phone: [phone]- Hydroxy Vitamin D TotalSeptember 2024 8:01amSept2024 8:01am 51.2 ng/mL<20 ng/mL Vit D pyjtjkdjt38-<30 ng/mL Vit D jifpccuabiwc94-354 ng/mL Vit D sufficient>100 ng/mL Potential ToxicityFerritinSeptember 2024 8:01am August 06, 2025 8:01am74.0 ng/mL8.0-252.0HematocritSeptember 2024 8:01amSeptember 2024 8:01am40.5 %36.0-48.0Urine Other CrystalsSeptember 2024 7:51amNone Seen #/HPFNone SeenUrine Protein/Creatinine RatioSeptember 2024 7:51amSeptember 2024 7:51am0.17AlbuminSeptember 2024 8:01amSeptember 2024 8:01am3.9 g/dL3.4-5.0Iron LevelSeptember 2024 8:01amSeptember 2024 8:01am84.0 ug/dL50.0-170.0HemoglobinSeptember 2024 8:01amSeptember 2024 8:01am12.9 g/dL12.0-16.0Urine BacteriaSeptember 2024 7:51amTRACE #/HPFAbnormal (applies to non-numeric results)NONE SEEN Urine Random Total ProteinSeptember 2024 7:51amSeptember 2024 7:51am 22.3 mg/dLAbove high normal<=11.9BUN/Creatinine RatioSeptember 2024 8:01am August 06, 2025 8:01am14.0Total Iron Binding CapacitySeptember 2024 8:01amSeptember 2024 8:96ld129.0 ug/dL250.0-450.0Mean Corpuscular HemoglobinSeptember 2024 8:01amSeptember 2024 8:01am32.3 pg26.7-34.0 Urine BilirubinSeptember 2024 7:51amNEGATIVENEGATIVEBlood Urea Nitrogen August 06, 2025 8:01amSeptember 2024 8:01am25.0 mg/dLAbove high normal7.0-18.0Mean Corpuscular Hemoglobin ConcentSeptember 2024 8:01am August 06, 2025 8:01am31.9 g/dL29.9-35.2Urine Occult BloodSeptember 2024 7:51amNEGATIVENEGATIVECalcium LevelSeptember 2024 8:01amSept2024 8:01am8.5 mg/dL8.5-10.1Mean Corpuscular VolumeSeptember 2024 8:01amSeptember 2024 8:72og473.5 fLAbove high qapbyv83.0-99.0Urine AppearanceSeptember 2024 7:51amCLEARCLEARChloride LevelSeptember 2024 8:01amSeptember 2024 8:89bt358 mmol/U14-656Caeg Platelet Volume August 06, 2025 8:01amSeptember 2024 8:01am9.6 fL9.5-13.5Urine Color August 06, 2025 7:51amYELLOWYELLOWCarbon Dioxide LevelSeptember 2024 8:01amSeptember 2024 8:01am23.9 mmol/L21.0-32.0Platelet CountSeptember 2024 8:01amSeptember 2024 8:05wh724 10 3/zW703-443Jefgo Glucose (UA) August 06, 2025 7:51amNEGATIVE mg/dLNEGATIVECreatinineSeptember 2024 8:01amSeptember 2024 8:01am1.78 mg/dLAbove high normal0.55-1.02Red Blood CountSeptember 2024 8:01amSeptember 2024 8:01am3.99 10 6/uLBelow low normal4.20-5.40Urine KetonesSeptember 2024 7:51amNEGATIVE mg/dLNEGATIVE Estimated GFR ()August 06, 2025 8:01amSept2024 8:66nq98Urcla low normal>=60 mL/min/1.73m 2Red Cell Distribution WidthSeptember 2024 8:01amSeptember 2024 8:01am12.5 %11.0-15.0Urine Leukocyte EsteraseSeptember 2024 7:51amNEGATIVENEGATIVEEstimated GFR (Non- AmericanSeptember 2024 8:01amSeptember 2024 8:54fp40Vnjav low normal >=60 mL/min/1.73m 2Corrected White Blood CountSeptember 2024 8:01am August 06, 2025 8:01am4.7 10 3/uL4.0-11.0Urine MucusSeptember 2024 7:51amNONE SEENNONE SEENGlucose LevelSeptember 2024 8:01amSeptember 2024 8:24lf322 mg/xT35-329Tansw NitriteSeptember 2024 7:51amNEGATIVE NEGATIVEPotassium LevelSeptember 2024 8:01amSeptember 2024 8:01am4.1 mmol/L3.5-5.1Urine pHSeptember 2024 7:51am6.05.0-9.0Sodium LevelSeptember 2024 8:01amSeptember 2024 8:92xo824 mmol/V247-592Elpoh Protein August 06, 2025 7:51amNEGATIVE mg/dLNEG/TRACEPhosphorus LevelSeptember 2024 8:01amSeptember 2024 8:01am3.6 mg/dL2.6-4.7Urine RBCSeptember 2024 7:43vo3-4 #/HPF0-2Urine Specific GravitySeptember 2024 7:51am 1.0251.005-1.025Urine Squamous Epithelial CellsSeptember 2024 7:51amRARE #/LPFNONE/RAREUrine UrobilinogenSeptember 2024 7:51am1.0 EU/dL0.2-1.0Urine WBCSeptember 2024 7:92nk4-7 #/HPFAbnormal (applies to non-numeric results) NONE SEENCreatinineSeptember 2024 6:28amSeptember 2024 7:05am1.91 mg/dLAbove high normal0.60-1.20[facility] [id number] [address] [place], [place] [id number] GFR (CKD-EPI)August 01, 2025 6:28amSeptember 2024 7:05am27.025 mL/MinCorey Hospital [facility]tr [id number] [address] [place], [place] [id number] Creatinine Clearance (ChemSeptember 2024 6:28am August 01, 2025 7:05am25.93[facility] [id number] [address] [place] [address] 07240Jteldrw CreatinineSeptember 2024 6:36amSeptember 2024 6:38am1.9 mg/dLAbove high normal0.6-1.3ER/ESD physician is notified/shown all ISTAT results.Critical values may be confirmed by laboratorytesting ifdeemed necessary by ER attending doctor.[facility] [id number] [address] [place] [address] 20362Ggmkgvf Estimated GFR (eGFR)August 01, 2025 6:36am August 01, 2025 6:38am27.197[facility] [id number] [address] [place], [place] [id number] Diagnostic Imaging Reports Author Arnel Simon [facility] HospitalAuthoredSeptember 2024 3:08pmReport Dictated Date/TimeDictated ByStatusRadiology ReportSept2024 3:08pm Arnel Smion II MDcompleteThe [facility] [place] [id number] MRI Report Signed Patient: Cassi Rodrigez MR#: [id number] : 1950 Acct:[id number] Age/Sex: 75 / F ADM Date: 5 Loc: MR Room: Type: [facility] Attending Dr: Tiana CHAMBERS Copies to: [...] Simon M.D. 08/01/2025 3:20 PM Dictation Location: [place] [address] Transcribed By: [facility] 08/01/25 1520 Dictated By: Arnel Simon II, MD 08/01/25 1508 Signed By: <Electronically signed by Arnel Simon II, MD in [place]> 08/01/25 1520 Vital Signs Vital Reading Result Reference Range Collection Date/Time Height 62 [in_i] August 01, 2025 6:80gePbpzde36.18 kgSeptember 2024 6:14xxRjeqxf91 [in_i]August 15, 2025 8:77rkWmzoef82.23 kgOctober 2024 8:41amBody Vqyuizbuedy75.5 [degF]97.6-99.0Oct2024 8:41amHeart Rate75 /asd03-689 August 15, 2025 8:41amRespiratory rate18 /hsl92-55Zepapoa 1st, 2025 8:41am Oxygen saturation by Pulse %95-100August 15, 2025 8:41amBP Systolic 113 mm[Hg]100-140Oct2024 8:41amBP Osgzkskzc33 mm[Hg]60-100August 15, 2025 8:41amBMI (Body Mass Index)33.5 kg/u0IayvcbiAugust 15, 2025 8:00hrIztyro00 [in_i]August 28, 2025 8:34ibBfybkb39.00 kgOctober 2024 8:49amHeart Rate 67 /gvk16-706Zaxlplz 2024 8:49amBP Xnurknqb669 mm[Hg]100-140August 28, 2025 8:49amBP Wkyrueifz86 mm[Hg]60-100October 2024 8:49amBMI (Body Mass Index)33.5 kg/h9Iydhnaa 2024 8:51slFxisjq99 [in_i]September 10, 2025 7:30krZzscub27.90 kgOctober 2024 7:58amBMI (Body Mass Index)32.5 kg/m2 September 10, 2025 7:01feZhrdqo62 [in_i]October 09, 2025 10:77owXnrpfy69.47 kgNovember 2024 10:27amHeart Rate82 /rah16-366Ruwkbozj 25th, 2025 10:27am BP Mncgotwn429 mm[Hg]100-140Nov2024 10:27amBP Skeysdkye29 mm[Hg] 60-100Nov2024 10:27amBMI (Body Mass Index)31.6 kg/d3Aiqmxpqb2024 10:27am Advance Directives Advance Directive Response Recorded Date/ Time Advance Directives No July 9:19am Insurance Providers Guarantor Cassi Rodrigez Address [address] [place] [id number] Info.Home Phone: Coverage Status Update:2024 Payer Group Member ID Coverage Type Subscriber Relationship to Subscriber Effective Date Expiration Date Cate ESTES [id number] Elia Id: [id number] [address] [place] [id number] Home Phone: Email: [email or web address] Encounters Encounter Location(s) Arrival/Admit Date Discharge/Departure Date Discharge/Departure Disposition Provider(s) Non-patient / [facility]-visit -[facility] July 23, 2025 8:48am [facility]am[facility]24 7:16amDischarged to home care or self care (routine discharge)Tiana Brush NP-CNon-patient / Ggo-yrhbd-[facility] August 06, 2025 8:51Alexis Ordoñez , JUDYeparted Physician/Provider Office Visit-[facility] Neph SandOctober 2024 9:36amOctober 2024 10:06amDischarged to home care or self care (routine discharge)Katina Ordoñez MD Departed Physician/Provider Office Visit-[facility] GastroOctober 2024 9:35amOctober 2024 10:15amDischarged to home care or self care (routine discharge)Adonis Burnette APRNDeparted Physician/Provider Office [facility] 10:45amOctober 2024 10:51amDischarged to home care or self care (routine discharge)[place] Martineseparted Physician/Provider Office Visit-[facility] NeurosurgeryOctober 2024 8:51amOctober 2024 9:29amDischarged to home care or self care (routine discharge)Orlando Bartlett-patient / [facility] 2024 10:59amChMaría Spear MDDeparted Physician/Provider Office Visit-[facility] GastroNovember 2024 10:14amNovember 2024 11:00amDischarged to home care or self care (routine discharge)Adonis Burnette PROFESSOR OF MANAGEMENT Recent Diagnosis Onset Date Admit Date Anemia of renal disease Unknown August 15, 2025 9:36am CKD (chronic kidney disease) stage 4, GFR 15-29 ml/min Unknown August 15, 2025 9:36am GERD (gastroesophageal reflux disease) Unknown August 15, 2025 9:36am Hypertensive chronic kidney disease with stage 1 through stage 4 chronic ki Unknown August 15, 2025 9:36am Secondary hyperparathyroidism Unknown Oc tob2024 9:36am GERD (gastroesophageal reflux disease) Unknown August 28, 2025 9:35am History of pancreatic cancer Unknown Aug 9:35am History of Whipple procedure Unknown Aug 9:35am IBS (irritable colon syndrome) Unknown O ctober 2024 9:35am Nausea Unknown August 28 9:35am Post laminectomy syndrome Unknown Octobe r 2024 8:51am GERD (gastroesophageal reflux disease) Unknown October 09, 2025 10:14am Nausea Unknown October 09, 10:14am Assessments Diagnosis Onset Date Resolution Status Admit Date Anemia of renal disease acuteOctober 2024 9:36amCKD (chronic kidney disease) stage 4, GFR 15-29 ml/minacuteOctober 2024 9:36amGERD (gastroesophageal reflux disease)acute August 15, 2025 9:36amHypertensive chronic kidney disease with stage 1 through stage 4 chronic kiacuteOctober 2024 9:36amSecondary hyperparathyroidism acuteOctober 2024 9:36amGERD (gastroesophageal reflux disease)acuteOctober 2024 9:35amHistory of pancreatic canceracuteOctober 2024 9:35am History of Whipple procedureacuteOctober 2024 9:35amIBS (irritable colon syndrome)acuteOctober 2024 9:35amNauseaacuteOctober 2024 9:35amPost laminectomy syndromeacuteOctober 2024 8:51amGERD (gastroesophageal reflux disease)acuteNov2024 10:14amNauseaacuteNovember 2024 10:14am Plan of Treatment Author Hank Maher [facility] 2024 2:34pmA 75-year-old female patient with diagnosis of GERD, IBS???C, nausea, history of pancreatic cancer with Whipple procedure in 2010 Continue Linzess 72 once daily to ensure regulation of bowel movements Ensure dose optimized PPI omeprazole 40 mg once daily to see if this helps with her symptoms of nausea, consideration of gastric emptying study if nausea continues despite regulation of bowel movements and control of GERD symptoms Follow-up in this office in 6 weeks to discuss treatment efficacy Author Low Littlejohn [facility] 2024 8:32amIn summary the patient is a 75-year-old female that presents to clinic today with chief complaints of not only back pain but also right lower extremity radiculopathy. 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 She does have a history of a ALIF at L5-S1 by Dr. Dang with use of SOCORRO cages. She also does have a history of having lumbar surgeries by Dr. Huynh as well as by Dr. Rm in the past. She describes symptoms as being over the right anterior lateral thigh that radiates distally. She has done therapy and injections without any symptomatic improvement and is being considered for spinal cord stimulator. She comes in today for initial consultation. At this time independent reviewed an MRI from August 01, 2025. I have gone over the MRI with her as well as her Scottie as well. I demonstrated the postoperative changes but specifically she does have significant severe right L4-5 into the left central L3-4 neuroforaminal stenosis. I do think that the foraminal stenosis is the right L4-5 and the 3 4 segments may be contributing to her symptoms. Her MRI was done without contrast however and she does have postsurgical changes. And so to better discern this I do want to do an MRI of the lumbar spine with and without contrast to discern postsurgical changes. She does have stage IV CKD that she sees Dr. Diaz for and therefore we will check with Dr. Diaz and her GFR to see if she can have a post gadolinium MRI. We also discussed obtaining EMG of her right leg to better discern her radiculopathy. I did express to her and her Scottie though that if surgical recommendations would be rendered that would have to be a fusion above her prior surgery. If the MRI cannot be done then we will just obtain the EMG and have her come back after. All questions were answered to the satisfaction of the patient as well as her Scottie. Author Katina Ordoñez [facility] 20[facility] 9:11amShe has longstanding CKD due to the HTN [...] Date Renal Function Panel August 15, 2025 9:02am 6 Months Future Visits Future appointment information is unavailable Future Procedures Procedure Name Ordered Date Scheduled Date NE emg LE RT September 10, 2025 2:28pm Dipstick and MicroscopicOctober 2024 9:02am6 MonthsHemogram CBC Without DiffOctober 2024 9:02am6 MonthsIron and TIBC ProfileOctober 2024 9:03am6 MonthsFerritinOctober 2024 9:03am6 MonthsMagnesiumOctober 2024 9:02am6 MonthsProtein Creat Ratio Ur RandomOctober 2024 9:02am6 Months Parathyroid Hormone IntactOctober 2024 9:02am6 MonthsUric AcidOctober 2024 9:02am6 MonthsVitamin D 25 Hydroxy TotalOctober 2024 9:02am6 Months Future Medications Future medication information is unavailable Patient Instructions Patient instructions are unavailable
[2025-10-12] VITALS (29 sets, daily range): BP systolic 94–140; BP diastolic 36–52; PULSE 60–62; TEMP 36.4; O2SAT 97–100; BMI 30.5
--- NOTE | 2025-10-12 02:59 | ECG_ITS ---
[facility] Test Date: 2025-10-12 Pat Name: BREANNA MCCORMICK Department: Room: - Gender: Female Clinical Evaluator: : 1950 Requested By: [id number] Order Number: [id number] Reading MD: JACK KEY M.D. Measurements Intervals Tony Rate: 60 P: 49 AZ: 192 QRS: 41 QRSD: 84 T: 69 QT: 428 QTc: 428 Interpretive Statements 14484 Electronic atrial pacemaker 8102 Low QRS voltage in chest leads Abnormal ECG Compared to ECG 10/09/2020 14:20:47 Sinus rhythm no longer present Electronically Signed On 10-12-2025 8:01:34 EST by JACK KEY M.D.
[2025-10-12 03:04] LABS: Hematocrit 36.2 % (36.0-48.0); Hemoglobin 11.9 g/dL (12.0-16.0); Immature Granulocytes Abs Auto 0.02 10^3/uL (0.00-0.03); Immature Granulocytes Pct Auto 0.4 % (0.0-0.5); Lymphocytes Absolute Auto 1.2 10^3/uL (1.2-3.8); Mean Corpuscular HGB Conc 32.9 g/dL (29.9-35.2); Mean Corpuscular Hemoglobin 33.1 pg (26.7-34.0); Mean Corpuscular Volume 100.6 fL (81.0-99.0); Platelet Count 176 10^3/uL (150-450); Red Blood Count 3.60 10^6/uL (4.20-5.40); White Blood Count 4.6 10^3/uL (4.0-11.0)
--- NOTE | 2025-10-12 03:06 | PC.NURSE ---
Pale in color
--- OUTSIDE RECORDS SUMMARY | 2025-10-12 03:11 | XMS_ITS | Clinical Summary ---
Author Organization [facility] Address [id number] [address] [place] [address] Care Team Providers Care Toe Laster Name Role Phone Shashi Lisa DO Primary Care Provider Nilsa gonzalez Allergies Active AllergyReactionsCriticalityNoted DateCommentsDexamethasoneRashLow 10/03/20153826Dfdnrocjxb89/18/2017 Medications MedicationSigDispense QuantityRefillsLast FilledStart DateEnd DateStatus melatonin [...] standard drink = 0.6 oz pure alcohol)ChildcareAnswerDate IozdrwumUmryrkgzfPvxhepr63/06/2019EmploymentAnswer Date QoqtxltnDaanvpwfolUnglwmh67/06/2019Purpose - LifeAnswerDate RecordedPurpose and direction in jvxxJdyfoif26/11/2021CommentsUnknownSex and Gender InformationValueDate RecordedSex Assigned at BirthNot on fileLegal SexFemale 06/20/2015 12:04 PM EDTGender IdentityNot on fileSexual OrientationNot on file Last Filed Vital Signs Vital SignReadingTime TakenCommentsBlood Gpnnqhpv411/62012/20/2017 10:30 AM EST Imkwz846912/20/2017 10:30 AM ESTTemperature--Respiratory Gctd262312/20/2017 10:30 AM ESTOxygen Jgoylxgzie82%12/20/2017 10:30 AM ESTInhaled Oxygen Concentration-- Lgtdml67 kg (150 lb)12/20/2017 10:30 AM DINNwecjn824.6 cm (5' 4 )12/20/2017 10:30 AM ESTBody Mass Index25.75012/20/2017 10:30 AM EST Plan of Treatment Health MaintenanceDue DateLast DoneCommentsDepression Zolebgwky53/08/1962Tobacco Rohlkvara31/08/1962DTaP,Tdap and Td Vaccines (1 - Tdap)1969Zoster (Shingles) Vaccine (1 of 2)2000Fall Risk Wsztkplbj11/08/2015RSV ( or age 60+ yrs) (1 - 1-dose 75+ series)2025Influenza Ooliquq1407/16/2025 Medical Devices Not on file Insurance Care Teams Team MemberRelationshipSpecialtyStart DateEnd Date Shashi Lisa DO [facility]12/17/17
--- OUTSIDE RECORDS SUMMARY | 2025-10-12 03:11 | XMS_ITS | Clinical Summary ---
Author Organization [facility] Address [address] [place] [address] Phone Care Team Providers Care Chief Client Officer Name Role Phone Unavailable Primary Care Provider Unavailabl e Social History Tobacco UseTypesPacks/DayYears UsedDateSmoking Tobacco: Never Assessed CommentsUnknownSex and Gender InformationValueDate RecordedSex Assigned at Not on fileLegal IhbRzrlfo67/25/2022 9:01 PM ESTGender IdentityNot on fileSexual OrientationNot on file Plan of Treatment Health MaintenanceDue DateLast DoneCommentsCT Itqqscwwhomq1950Colonoscopy 1950Colorectal Cancer Lvytipvmj1950FIT-DNA (Cologuard)1950FIT 1950Lipid Panel1950Medicare Annual Wellness Visit (AWV)1950 Eyoqolbzegqry1950MMR Vaccines (1 of 1 - Standard series)1951 Hepatitis C Rvvncpieb94/08/1968DTaP/Tdap/Td Vaccines (1 - Tdap)1972 Pneumococcal Vaccine (1 [...]
--- OUTSIDE RECORDS SUMMARY | 2025-10-12 03:11 | XMS_ITS ---
Author Organization [facility] Address [address] [place] [address] Care Team Providers Care Weasand Trimmer Name Role Phone Broderick Joiner DO Primary Care Provider [phone] Kitty Valente MD Unavailable Un available Active Problems * This document contains information received from the source organization and may not represent a complete record from that organization. ProblemNoted DateDiagnosed DateMCI (mild cognitive impairment)05/21/2025Obesity, Class II, BMI 35-39.9005/21/2025Left arm pain10/24/2019Left-sided weakness 03/13/2019Paresthesia and pain of left sqxkuyzuu50/29/7152Cvkjud12/05/2018Family history of pancreatic ehttmk2309/19/20180587Nzsjtye09/07/2018Other jqeikyyc96/07/2018 Abnormal weight loss08/07/2016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eld 10/08/2015Hypertropia of right eye10/08/20151549Wpwfyqqrzh82/05/2015Sinus node vnvrzpbfyot98/27/2015Cardiac pacemaker in situ05/23/2015 Overview (05/23/2015): DDDR By Dr Garner on 05/22/2015 Partial epilepsy with impairment of consciousness, rbkafiwhgjr78/06/2015HTN (hypertension)05/14/20152656Dmtrblefwnp78/30/2015nticoagulated on Coumadin 05/14/2015Elevated alkaline phosphatase level05/14/2015New daily persistent xbjzvoww82/05/7213Lyhltoeo16/12/2015Central line yhqrrfcwwbqn00/15/2014Right leg DVT03/09/2013Presence of IVC nbrjit0703/09/2013mpullary qhdngopzw65/26/2011 Pancreas mbroyt3101/29/2011 Current Treatment and Therapy Plans No current plan information found. Past Treatment and Therapy Plans Plan NameStart DateDiscontinue DateTreatment MedicationsDiscontinue ReasonPlan ProviderCyclesCENTRAL LINE FLUSH - Weekly x 24 weeksNo medications scheduled.Treatment CompleteMusSusan euegne, PA-C1 of 1 cycle started Resolved Problems ProblemNoted DateDiagnosed DateResolved HffpEperumd53
--- OUTSIDE RECORDS SUMMARY | 2025-10-12 03:11 | XMS_ITS | Clinical Summary ---
Author Organization [facility] Address [address] [place] [address] Care Team Providers Care Circle Beveler Name Role Phone Broderick Joiner DO Primary Care Provider Allergies Active AllergyReactionsCriticalityNoted DateCommentsDexamethasoneRash,UnknownLow 10/03/2015PregabalinRash,WjqsxepYvhhnu47/10/2481OdsomfpyfDyfhSzz16/07/2024 Medications MedicationSigDispense QuantityRefillsLast FilledStart DateEnd DateStatus amitriptyline (Elavil) 10 MG tablet Daily at qffneud1607/20/2023ctive amLODIPine (Norvasc) 5 MG tablet Daily02/02/2024ctive carvedilol (Coreg) 12.5 MG tablet Twice daily02/08/2024ctive levETIRAcetam (Keppra) 1000 MG tablet every 12 (twelve) hoursActive losartan (Cozaar) 25 MG tablet Every xmousfv7302/02/2024ctive omeprazole (PriLOSEC) [address] capsule Every zqjotmc0507/20/2023ctive traMADol (Ultram) 50 MG tablet Twice daily04/13/2024ctive venlafaxine XR (Effexor XR) 150 MG 24 hr capsule .DGLUVVV8802/23/2024ctive warfarin (Coumadin) 4 MG tablet Active zonisamide (Zonegran) 100 MG capsule Daily12/23/2023ctive ondansetron (Zofran) 4 MG tablet Take by mouthActive doxycycline (Vibramycin) 100 MG capsule Take 100 mg by mouth in the morning and 100 mg before bedtime.11/21/2024tive ergocalciferol (Vitamin D2) 1.25 MG (58750 UT) capsule TAKE 1 CAPSULE BY MOUTH ONCE EVERY WEEK09/07/2024ctive ferrous sulfate 325 (65 Fe) MG tablet Take 1 tablet by mouth every other day09/07/2024ctive ondansetron ODT (Zofran-ODT) 4 MG disintegrating tablet DISSOLVE 1 TABLET IN MOUTH EVERY 6 HOURS NEEDED FOR KUPUAW935Active Linzess 72 MCG capsule Take 72 mcg by mouth Daily08/29/2024ctive Enoxaparin Sodium 100 MG/ML solution prefilled syringe INJECT 90 MG SUBCUTANEOUSLY TWICE A DAY TVZEEVEX62/11/2024ctive Active Problems ProblemNoted DateDiagnosed DateAbdominal wall mbievbpj62/15/2025 Family History Medical HistoryRelationNameCommentsPancreatic cancerBrotherEugene ManletCancer FatherCharles ManletLiver cancerFatherCharles ManletBreast cancerSister 1Cancer Sister 2Mary StieberColon cancerNeg HxOvarian cancerNeg HxRelationNameStatus CommentsBrotherEugene ManletFatherCharles ManletDeceasedMotherDeceasedSister 1 DeceasedSister 2Mary Stieber Social History Tobacco UseTypesPacks/DayYears UsedDateSmoking Tobacco: NeverSmokeless Tobacco: Never Tobacco Cessation:Counseling Given: Not Answered Alcohol UseStandard Drinks/WeekCommentsYes2 (1 standard drink = 0.6 oz pure alcohol)CommentsUnknownSex and Gender InformationValueDate RecordedSex Assigned at BirthNot on fileLegal DkkGngwga81/15/2023 6:53 PM EDTGender Identity Not on fileSexual OrientationNot on file Last Filed Vital Signs Vital SignReadingTime TakenCommentsBlood Qioowgbm911/8501 1:43 PM EST Pulse--Temperature--Respiratory Rate--Oxygen Saturation--Inhaled Oxygen Concentration--Vyhlnf29.5 kg (193 lb)11/29/2024 1:43 PM VOMFfeppi548.5 cm (5' 2 )11/29/2024 1:43 PM ESTBody Mass Index35.301 1:43 PM EST Plan of Treatment Not on file Insurance * Guarantor: Cassi Rodrigez TypeRelation to PatientDate of BirthPhone Billing AddressPersonal/WcefodQdcw1950 [address] [address] Care Teams Team MemberRelationshipSpecialtyStart DateEnd Date Broderick Joiner DO PCP - GeneralInternal Medicine05/03/24
--- OUTSIDE RECORDS SUMMARY | 2025-10-12 03:11 | XMS_ITS | Clinical Summary ---
Author Organization [facility] Address [address] [place] [address] Care Team Providers Care System Administrator Name Role Phone Broderick Joiner Primary Care Provider [phone] Kitty Valente MD Unavailable Un available Allergies Active AllergyReactionsCriticalityNoted QntbSyvkhhcrVkbemcpncuctwJhwo77/19/2015 RmlaoumqauLwopLpkfox96/10/2013 Medications * This document contains information received [...] pain10/24/2019Left-sided weakness 03/13/2019Paresthesia and pain of left insywnzrr24/29/5898Ervjyb89/05/2018Family history of pancreatic xriaqt5309/19/20187072Gzgdsgz09/07/2018Other ufifkmez78/07/2018 Abnormal weight loss08/07/2016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eld 10/08/2015Hypertropia of right eye10/08/20155996Kgaotfseun19/05/2015Sinus node yxfgmxbramt03/27/2015Cardiac pacemaker in situ05/23/2015 Overview (05/23/2015): DDDR By Dr Garner on 05/22/2015 Partial epilepsy with impairment of consciousness, idrlshwdhgu83/06/2015HTN (hypertension)05/14/20155695Lzsapphnnex22/30/2015nticoagulated on Coumadin 05/14/2015Elevated alkaline phosphatase level05/14/2015New daily persistent zmiihloj07/05/6186Ckncteik73/12/2015Central line /15/2014Right leg DVT03/09/2013Presence of IVC gtonmb8203/09/2013mpullary jwlvyeisg64/26/2011 Pancreas izzsvc4501/29/2011 Resolved Problems ProblemNoted DateDiagnosed DateResolved GpviKnyxmpf07 Encounters DateTypeDepartmentCare JqnaEierukayzfs13/18/2025 Patient Msg Cardiology [address] [place] [address] Kitty Valente MD Appointment Zzzzcaq3807/25/2025Orders Only Pseudo [place] [address] Kitty Valente MD 07/18/2025 10:00 AM EDTOffice Visit Neurology [address] [place], [place] [id number] Ashley Tran MD Intractable 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 aura and without status migrainosus (Primary Dx)07/12/2025Travelfrom Last 3 Months Family History Medical HistoryRelationCommentsLiver Ca[other]FatherNo Ocular DiseaseOtherBreast CancerSister 6RelationStatusCommentsBrother 1AliveBrother 2AliveFatherDeceased MotherAliveOtherSister 1AliveSister 2AliveSister 3AliveSister 4AliveSister 5 DeceasedSister 6 Social History Tobacco UseTypesPacks/DayYears UsedDateSmoking Tobacco: NeverSmokeless Tobacco: Never Tobacco Cessation:Counseling Given: Not Answered Alcohol UseStandard Drinks/WeekCommentsNo0 (1 standard drink = 0.6 oz pure alcohol)PHQ-2AnswerDate RecordedPHQ-2 xjtit1285Area Deprivation Index AnswerDate RecordedNational Score (1-100), lower number is lower risk63 09/08/2023State Score (1-10), lower number is lower ryhc9983Data from: https://www.neighborhoodatlas.medicine.[facility].edu/. Last address used for tgqvtjcjuig35[address] 3CommentsNoSex and Gender Information ValueDate RecordedSex Assigned at BirthNot on fileLegal OweMuvgne49/02/2012 10:00 AM ESTGender IdentityNot on fileSexual OrientationNot on file Last Filed Vital Signs Vital SignReadingTime TakenCommentsBlood Sszsmftr460/7409 9:45 AM EDT Plpwf2180 9:45 AM ISEHtopdkdcgkn11.4 ??C (97.6 ??F)12/23/2023 9:02 AM ESTRespiratory Euaw809611/28/2021 1:11 PM ESTOxygen Bjsqbvcchn083%12/23/2023 9:02 AM ESTInhaled Oxygen Concentration--Ykschl31.1 kg (192 lb 0.3 oz)07/18/2025 9:45 AM FPYEqmdcy082.5 cm (5' 2 )07/18/2025 9:45 AM EDTBody Mass Index35.12 07/18/2025 9:45 AM EDT Plan of Treatment DateTypeDepartmentCare Team (Latest Contact Info)Konqfuaczyy16/16/2025 10:30 AM ESTOffice Visit Neurology [address] [place] [address] [place] [address] [facility] [place] [address] Botox11/27/2025 10:00 AM ESTOffice Visit Cardiology [address] [place] [address] Bessy Daniels, STENCIL CUTTER.MOBILE APPLICATION TESTER [address] [place] [address] Yearly Follow Up01/09/2026 11:00 AM ESTOffice Visit Neurology [address] [place] [address] Ross Villar MD, PhD [address] [place], [place] [address] annaul follow upHealth MaintenanceDue DateLast DoneCommentsAnnual PCP Team Chronic Disease Visit1968Hepatitis C Ccflrqhlf40/08/1968DTaP,Tdap,Td Vaccine (1 - Tdap)1969CT Zpzrcgutzfjw13/08/6507Ecvwlacztbf41/08/1995Fecal Occult Blood1995Lipid Jdibrpbxh22/08/8387Yewtxvaorjzvb48/08/1995Shingrix Vaccine (1 of 2)2000Bone Density Hfgiozxqp46/08/2015Pneumococcal Vaccine: 50+ (2 of 2 - PCV)Cologuard (FIT-DNA) Colorectal Cancer Sfwlwkqot70/16/2022dvance Directive Uwndzspltv71/01/2025 Medicare Advantage Annual Wellness Visit11/15/2024RSV Vaccine (1 - 1-dose 75+ series)2025ovid-19 Vaccine (4 - 2024- season), 01/14/2021, 12/17/2020Influenza Vaccine (#1), 08/31/2023, 07/30/2022, Additional history existsDiabetes Ngpszdami05, 11/28/2021, 11/29/2020, Additional history exists Goals GoalPatient Goal TypeAssociated ProblemsRecent ProgressPatient-Stated?Author Blood Pressure < 130/80 Blood Mhzhvoml141/74(07/18/2025 9:45 AM EDT)Kitty Kirkpatrick MD Medical Devices ImplantedTypeAreaManufacturerDevice IdentifierShelf Expiration DateModel / Serial / [id number] Capsurefix Novus [id number] Implanted:05/22/2015 (Quantity not on file)LeadMEDTRONIC [id number] CAPSUREFIX NOVUS / [id number] / [id number] Capsurefix Novus [id number] Implanted:05/22/2015 (Quantity not on file)LeadMEDTRONIC [id number] CAPSUREFIX NOVUS / [id number] / Pacemaker-A2dr[address] [id number] Implanted:05/22/2015 (Quantity not on file)PacemakerMEDTRONIC [id number] Advis[address] COBOS / [id number] / Plate Bn 12mm Cmf Ti 2 H Lp - [id number] Implanted:Qty: 3 on 08/16/2015 at [facility] [id number] / / Pin Crss Sd Scr 1.5x4mm - [id number] Implanted:Qty: 6 on 08/16/2015 at [facility] [id number] / / Procedures Procedure NamePriorityDate/TimeAssociated DiagnosisCommentsREM INTERROG PM/LDLS PM <90 D PHYS/AQLDscfaln86/10/2025 2:11 PM EDT COMPREHENSIVE METABOLIC ANBONSvozmhu03/15/2024 1:57 PM EDT Focal epilepsy with impairment of consciousness, intractable (HCC) from Last 3 Months or Most Recently Relevant to Health Maintenance Results * CARDIAC IMPLANTABLE DEVICE CHECK REMOTE (07/25/2025 2:11 PM EDT)ComponentValue Ref RangeTest MethodAnalysis TimePerformed AtPathologist SignatureDate Time Interrogation [id number] CARDIACType Interrogation Session RemoteMURJ CARDIACImplantable Pulse Generator ManufacturerMedtronicMURJ CARDIACImplantable Pulse Generator TypePacemakerMURJ CARDIACImplantable Pulse Generator ModelAdvisa DR COBOS [id number] CARDIACImplantable Pulse Generator Serial [id number] CARDIACImplantable Pulse Generator Implant Date [id number] CARDIACBattery Remaining Longevity7.0MURJ CARDIACBattery Voltage 2.870MURJ CARDIACBattery THERAPEUTIC SALES SPECIALIST Trigger2.830MURJ CARDIACBattery StatusOKMURJ CARDIACBrady Statistic RA Percent Paced99.95MURJ CARDIACBrady Statistic RV Percent Paced0.03MURJ CARDIACAtrial Tachy Statistic AT/AF Leonard Percent0.00 MURJ CARDIACLead Channel Sensing Intrinsic Amplitude1.750MURJ CARDIACLead Channel Setting Sensing Sensitivity0.30MURJ CARDIACLead Channel Impedance Ctrkl974FUES CARDIACLead Channel Pacing Threshold Amplitude0.500MURJ CARDIAC Lead Channel Pacing Threshold Pulse Width0.4MURJ CARDIACLead Channel Measurements Date and Xady4170-18-42WGJJ CARDIACLead Channel Setting Pacing Amplitude1.500MURJ CARDIACLead Channel Setting Pacing Pulse Width0.4MURJ CARDIACLead Channel Sensing Intrinsic Hlyrodwzq99.125MURJ CARDIACLead Channel Setting Sensing Sensitivity0.90MURJ CARDIACLead Channel Impedance Gwljc980UBLM CARDIACLead Channel Pacing Threshold Amplitude0.875MURJ CARDIACLead Channel Pacing Threshold Pulse Width0.4MURJ CARDIACLead Channel Measurements Date and Nmwb5262-07-76HVJF CARDIACLead Channel Setting Pacing Amplitude2.000MURJ CARDIACLead Channel Setting Pacing Pulse Width0.4MURJ CARDIACBrady Setting Mode (NBG Code)AAIR<=>DDDRMURJ CARDIACBrady Setting Lower Rate Yscxh58RISZ CARDIACBrady Setting AT Mode Switch Xnpy375RGSG CARDIACBrady Setting Maximum Tracking Ldgz606GJBC CARDIACBrady Setting Maximum Sensor Kbvg374ELLJ CARDIAC Godfrey Setting PAV Asjfh530KKQK CARDIACBrady Setting LOREE Vdqpc415UZHS CARDIAC Lead Channel Setting Sensing PolarityBipolarMURJ CARDIACLead Channel Setting Sensing PolarityBipolarMURJ CARDIACLead Channel Setting Pacing PolarityBipolar MURJ CARDIACLead Channel Setting Pacing PolarityBipolarMURJ CARDIACLead Channel Pacing Threshold PolarityBipolarMURJ CARDIACLead Channel Pacing Threshold PolarityBipolarMURJ CARDIACZone Setting Type CategoryAT/AFMURJ CARDIACRate 1171MURJ CARDIACTherapiesSome Rx OffMURJ CARDIACZone Setting StatusMonitorMURJ CARDIACZone TD3FWHB CARDIACZone Setting Type CategoryVTMURJ CARDIACRate 1150MURJ CARDIACZone Setting StatusENABLEDMURJ CARDIACZone XW2EQFY CARDIACImplantable Lead ManufacturerMedtronicMURJ CARDIACImplantable Lead Tzvwo5521 CapSureFix NovusMURJ CARDIACImplantable Lead LocationRight Atrium MURJ CARDIACImplantable Lead Connection StatusConnectedMURJ CARDIACImplantable Lead Serial [id number] CARDIACImplantable Lead Implant MURJ CARDIACImplantable Lead ManufacturerMedtronicMURJ CARDIACImplantable Lead Xlhke9064 CapSureFix NovusMURJ CARDIACImplantable Lead LocationRight VentricleMURJ CARDIACImplantable Lead Connection StatusConnectedMURJ CARDIAC Implantable Lead Serial [id number] CARDIACImplantable Lead Implant [id number] CARDIACSpecimen (Source)Anatomical Location / Laterality Collection Method / VolumeCollection TimeReceived Time07/25/2025 2:11 PM EDT Narrative MURJ CARDIAC - 08/04/2025 7:03 PM EDT Normal Remote: No Events * Normal Device Function * Alerts or events: None * Battery: OK, 7 mos * Sensing, impedance and thresholds reviewed * Programmed parameters reviewed * Presenting rhythm: AP/VS * Heart Rate Histograms reviewed * No significant changes noted * AP 99.9%, RECRUITMENT MANAGER <0.1%. NOTE TO PROVIDERS: Cardiac Implanted [...] No significant changes noted * AP 99.9%, RECRUITMENT MANAGER <0.1%. NOTE TO PROVIDERS: Cardiac Implanted Devices Flowsheets contain detailed Programming and Evaluation data. Full Docket/PDF found below under Scanned Documents . Authorizing ProviderResult TypeResult StatusChristine Pascual Vidal MD CARDIOLOGYFinal ResultPerforming OrganizationAddressCity/State/ZIP CodePhone Number MURJ CARDIAC * (ABNORMAL) COMPREHENSIVE METABOLIC PANEL (06/29/2024 1:57 PM EDT)Component ValueRef RangeTest MethodAnalysis TimePerformed AtPathologist Signature Protein, Total7.06.3 - 8.0 g/dL06/29/2024 2:36 PM [facility]TFA[facility] Albumin4.33.9 - 4.9 g/dL06/29/2024 2:36 PM EDTFAIRVIEW LABORATORYCalcium, Total8.88.5 - 10.2 mg/dL06/29/2024 2:36 PM EDTFAIRVIEW LABORATORYBilirubin, Total0.40.2 - 1.3 mg/dL06/29/2024 2:36 PM EDTFAIRVIEW LABORATORYAlkaline Rmysystreew275(H)34 - 123 U/L06/29/2024 2:36 PM EDTFAIR[facility] LQRMMOURESCIP5540 - 35 U/L06/29/2024 2:36 PM EDTFA[facility] QZJRFEJAUBILV284 - 38 U/L06/29/2024 2:36 PM EDTFA[facility] XSCIBFPXRGZlztxrm869(H)74 - 99 mg/dL06/29/2024 2:36 PM [facility] LABORATORYComment: The [place] Diabetes Association (ADA) provides guidance for cutoff [...] Standards of Medical Care in Diabetes 2016, [place] [employer] Association. Diabetes Care. 2016.39(Suppl 1). BUN34(H)7 - 21 mg/dL06/29/2024 2:36 PM [facility] LABORATORYCreatinine1.73(H) 0.58 - 0.96 mg/dL06/29/2024 2:36 PM [facility] UFOZMKKIVRAjizvp473036 - 144 mmol/L06/29/2024 2:36 PM EDOUR [facility] LABORATORYPotassium5.13.7 - 5.1 mmol/L 06/29/2024 2:36 PM [facility] TQAPBBMLPUDfiuzlcs620(H)98 - 107 mmol/L06/29/2024 2:36 PM [facility] KCRTDTNIJOWF46809 - 30 mmol/L06/29/2024 2:36 PM EDOUR [facility] LABORATORYAnion Gap88 - 15 mmol/L06/29/2024 2:36 PM [facility] Estimated Glomerular Filtration Rate31(L)>=60 mL/min/1.73m 06/29/2024 2:36 PM EDBOURNEWOOD [facility] LABORATORYComment:Estimated Glomerular Filtration Rate (eGFR) is [...] TimeReceived TimeBloodBLOOD SPECIMEN / Unknown Venipuncture / Oeevktn4606/29/2024 1:57 PM EDT06/29/2024 1:57 PM EDT Narrative Authorizing ProviderResult TypeResult StatusRoss Villar MD, PhDLABORATORY Final ResultPerforming OrganizationAddressCity/State/ZIP CodePhone Number [facility] [address] [place] [address], from Last 3 Months or Most Recently Relevant to Health Maintenance Insurance Care Teams Team MemberRelationshipSpecialtyStart DateEnd Date Broderick Joiner DO [address] [place] [address] PCP - GeneralInternal Jvofuzju56/7/18 Kitty Valente MD [address] [place] [address] Primary Staff PhysicianCardiology01/31/19
--- OUTSIDE RECORDS SUMMARY | 2025-10-12 03:12 | XMS_ITS | CCD ---
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 Role Phone Bertram Sanders Unavailable Broderick [...] Broderick Attending Provider WILIAN Mcfadden Attending Provider [phone] Ball, DO Broderick Primary Care Provider Ball, DO Broderick Attending Provider Ball, DO Broderick Primary Care Provider Ball, DO Broderick Attending Provider Ball, DO Broderick Primary Care Provider LEE, BRODERICK Primary Care Physician Ap, Shashi B Referring Unavailable Rhiew, Shashi [...] Attending Unavailable Shashi De Souza Referring Unavailable OYULIETKKatUMD Mblloydfo Consulting Unavailable OJUKWU, Mbanefo Consulting Unavailable [...] Provider Kristel Low APRN Emergency Provider [phone] KITTY VALENTE Attending Unava ilBRODERICK Mcclure Primary Care Unavailable KITTY VALENTE Referring Unava BRODERICK Prasad Primary Care Unavailable ELIAN JONES Attending Unavailable ALEJANDRO VILLAR Referring Unavailable BRODERICK HOWARD Primary Care Unavailable Broderick Howard DO Primary Care Provider [phone] Broderick Howard DO Attending Provider [phone] RANDA REILLY Attending Unavailable RANDA REILLY Referring Unavailable BALL, BRODERICK E Primary Care Unavailable RANDA REILLY M Attending Unavailable REILLYRANDA CHOWDARY M Referring Unavailable BALL, BRODERICK E Primary Care Unavailable REILLYRANDA CHOWDARY M Attending Unavailable REILLY, RANDA M Referring Unavailable BALL, BRODERICK E Primary Care Unavailable ALEJANDRO VILLAR Attending Unavailable BALL, BRODERICK E Primary Care Unavailable SVITLANA MAYFIELD Attending Unavailable TOMMIE, RANDA M Referring Unavailable BALL, BRODERICK E Primary Care Unavailable Trudi HAND III CUTTER-C, Tiana Quinteros Other Provider Leandra Gama MD Attending Provider Trudi HAND III CUTTER-C, Tiana Quinteros Attending Provider [phone] Kristel Low Attending Unavailable Ball, Broderick Primary Care Unavailable Kristel Low Admitting Unavailable Trudi, Tiana E Admitting Unavailable Trudi, Tiana E Attending Unavailable Ball, Broderick Primary Care Unavailable Trudi, Tiana E Admitting Unavailable Trudi, Tiana E Attending Unavailable Ball, Broderick Primary Care Unavailable Katina Ordoñez MD Attending Provider [phone] Hank Maher APRN Attending Provider Kasey PAUL, Keith Barron Attending Unavailable Low Littlejohn DO Attending Provider [phone] Allergies Allergy ClassificationReported Allergen(s)Allergy TypeDate of OnsetReaction(s) Facility (20 sources)Dexamethasone; Translations: [dexAMETHasone]Drug [id number] [facility], [facility] ([facility] sources)pregabalin; Translations: [pregabalin]Drug Ktgayrq87-38-0550Uttv [facility] (20 sources)rifAXIMinDrug Crpwrcn31-87-8873dhewGopzgzmvxSelect [facility] [place] (1 source)DexamethasoneDrug AllergyThe [facility] (6 sources)pregabalin; Translations: [Lyrica]Drug Iwugrac80-13-3821Epb [facility] (20 sources)DexamethasoneDrug Tuzehql00-21-1377Fodbjfg, Unknown Reaction [facility] (8 sources)Allergies ReconciledPropensity to adverse reactionsCollis P. Huntington HospitalnowRightAnswers Other (8 sources)patient allergy list reviewed by nurse or physiciaPropensity to adverse tunwrmzsp63-43-7132Oavtlhx:[place] Other (3 sources)PregabalinAllergy to egpswbzkt17-08-8945Ijiy, [facility] (3 sources)rifAXIMinDrug Jhqvhpb84-65-3413Sx[facility]ZPL[facility] (1 source)DexamethasoneDrug Zfqjvux00-23-4992DijfynpzdReg[facility] (1 source)pregabalinDrug Uancmxd88-13-0993SmcgdauupRegency Hospital [place] [facility] (1 source)rifAXIMinDrug Nzxlzvy76-32-0871WzqgdomdlRegency Hospital [place] [facility] Medications Current Medications MedicationDrug Class(es)DatesSig (Normalized)Sig (Original)acetaminophen 500 mg oral tablet (20 sources)Start: 02-38-5538qdoe 500 mg by mouth every six hours as needed for painTylenol 500 mg, Oral, q6hr, PRN as needed for pain, Refills(s) 0 Start Date: 10/25/24 Status: OrderedStart: 07-20-2023 End: 52-85-7625exjr 2 capsules by mouth every six hours as needed for pain Acetaminophen (Tylenol Extra Strength) 500 mg Capsule Discontinued 1000 MG PO Q6H as needed for Pain July 20, 2023 12:00am February 08, 2024 11:20am acetaminophen 325 mg / oxyCODONE hydrochloride 5 mg oral tablet (1 source)Opioid AgonistStart: 11-02-2024 End: 63-13-4238Oywjmdnn 5 mg-325 mg oral tablet 1 tab(s), Oral, TID Pain 4-7 for 7 day(s), 21 tab(s), Refill(s) 0,[facility]/pharmacy #[id number], 157, cm, 10/25/24 11:44:00 EST, Height/Length Dosing, 87.7, kg, 10/25/24 11:44:00 EST, Weight Dosing Start Date: 11/02/24 Stop Date: 11/09/24 Status: OrderedamLODIPine 5 mg oral tablet (20 sources)Dihydropyridine Calcium Channel BlockerStart: 91-79-5521yjnu 1 tablet by mouth once dailyAmlodipine 5 mg tablet Active 5 MG PO Daily February 22, 2025 10:42am Complies with drug therapyStart: 02-13-2025 End: 54-72-0271obuy 1 tablet by mouth once daily in the morning for hypertension Amlodipine 5 mg tablet Discontinued 0 .ROUTE .COMPLEX 90 3 February 13, 2025 7:42am February 22, 2025 10:43am TAKE 1 TABLET BY MOUTH EVERY MORNING FOR HYPERTENSIONStart: 06-23-2022 End: 50-21-0594sdif 1 tablet by mouth once dailyAmlodipine 5 mg tablet Discontinued 5 MG PO Daily February 08, 2024 12:00am June 08, 2024 2:29pmStart: 01-06-2021 End: 14-84-5453shmt 1 tablet by mouth once dailyAmlodipine 10 mg tablet Discontinued 10 MG PO Daily January 06, 2021 1:00am July 20, 2023 1 1:41amComment on above:Take 5 mg by mouth once daily.amoxicillin 875 mg / clavulanate 125 mg oral tablet (1 source)Penicillin-class AntibacterialStart: 35-97-1964tdcl 1 tablet by mouth every twelve hoursAmoxicillin-Pot Clavulanate 875-125 MG 1 tablet Orally every 12 hrs for 7 days Nov, Activecarvedilol 12.5 mg oral tablet (20 sources)alpha-Adrenergic Dylan, beta-Adrenergic BlockerStart: 08-15-2025 take 1 tablet by mouth twice dailyCarvedilol 12.5 mg tablet Active 12.5 MG PO Twice daily August 15, 2025 9:46am Complies with drugtherapyStart: 04-01-2025 End: 18-87-9358vuow 1 tablet by mouth twice dailyCarvedilol 12.5 mg tablet Discontinued 0 .ROUTE .COMPLEX 180 3 April 01, 2025 5:07pm August 15, 2025 9:48am TAKE 1 TABLET BY MOUTH TWICE A DAYStart: 09-07-2024 End: 10-28-7192hrbq 1 tablet by mouth twice dailyCarvedilol 12.5 mg tablet Discontinued 12.5 MG PO Twice daily September 07, 2024 9:19am April 01, 2025 5:13pmStart: 05-24-2024 End: 56-81-6138qfdi 1 tablet by mouth twice dailyCarvedilol 12.5 mg tablet Discontinued 0 .ROUTE .COMPLEX 180 3 May 24, 2024 6:47am August 9:21am TAKE 1 TABLET BY MOUTH TWICE A DAYStart: 07-20-2023 End: 66-54-2242niku 1 tablet by mouth twice dailyCarvedilol 12.5 mg tablet Discontinued 12.5 MG PO Twice daily February 08, 2024 12:00am May 24, 2024 6:47amComment on above:Take 12.5 mg by mouth twice daily with meals.dicyclomine hydrochloride 20 mg oral tablet (9 sources)AnticholinergicStart: 60-20-7668azlz 1 tablet by mouth twice daily as needed for painDicyclomine HCl 20 MG 1 tablet Orally twice daily as needed for ABD pain for 30 days Apr, Active1 ml enoxaparin sodium 100 mg/ml prefilled syringe (20 sources)Low Molecular Weight HeparinStart: 43-96-4498imzxbv 100 mg by subcutaneous injection every twelve hoursenoxaparin 100 mg/mL SubQ Gloria 100 mg, SubCutaneous, q12hr, Bridging with Warfarin for surgery, Refills(s) 0, Blood Thinner Start Date: 11/02/24 Status: OrderedStart: 07-35-2245gfkblm 90 mg by subcutaneous injection twice dailyEnoxaparin Sodium 100 MG/ML solution prefilled syringe INJECT 90 MG SUBCUTANEOUSLY TWICE A DAY DIRECTED 10/25/2024 Active Start: 08-03-2023 End: 72-81-6213Okodofnlhc (Lovenox) 100 mg/mL Syringe Discontinued 90 MG SUBCUT Daily August 03, 2023 12:00amJuly 2023 2:29pmergocalciferol 1.25 mg oral capsule (20 sources)Provitamin D2 CompoundStart: 56-46-0546Uzxnvjnlctjjqi (Vitamin D2) 1,250 mcg (50,000 unit) capsule Active 03878 UNIT PO every week 2024 9:47am Complies with drug therapyStart: 04-02-2025 End: 28-79-7397zdrl 1 capsule by mouth every weekErgocalciferol (Vitamin D2) 1,250 mcg (50,000 unit) capsule Discontinued 0 .ROUTE .COMPLEX 14 1 2024 9:33am August 15, 2025 9:48am TAKE 1 CAPSULE BY MOUTH ONCE EVERY WEEK Start: 09-07-2024 End: 16-29-5673coqb 1 capsule by mouth every weekErgocalciferol (Vitamin D2) 1,250 mcg (50,000 unit) capsule Discontinued 1250 MCG PO every week 14 September 07, 2024 12:00am April 02, 2025 9:33amferrous sulfate 325 mg oral tablet (20 sources)Start: 02-27-2025 End: 46-65-9068Oqolfwh Sulfate 325 mg (65 mg iron) tablet Active 0 .ROUTE .COMPLEX 45 August 09, 2025 10:05am TAKE 1 TABLET BY MOUTH EVERY 48 HOURS Complies with drug therapyStart: 80-88-4331bnql 1 tablet by mouth every other dayferrous sulfate 325 (65 Fe) MG tablet Take 1 tablet by mouth every other day 09/07/2024 ActiveStart: 09-07-2024 End: 62-84-8786Nkmzuam Sulfate 325 mg (65 mg iron) tablet Discontinued 325 MG PO Every 48 hours 45 August 12:00am February 27, 2025 8:42am levETIRAcetam 750 mg oral tablet (20 sources)Start: 84-86-6061yehl 1 tablet by mouth every twelve hours Levetiracetam 750 mg tablet Active 750 MG PO Every 12 hours February 08, 2024 12:00am Complies with drug therapyStart: 01-06-2021 End: 86-13-4233tagy 1 tablet by mouth twice dailyLevetiracetam 750 mg tablet Discontinued 750 MG PO Twice daily January 06, 2021 1:00am February 08, 2024 11:22am seizureslevETIRAcetam (Keppra) 1000 MG tablet every 12 (twelve) hours Activetake 1 tablet by mouth every twelve hourslevETIRAcetam 750 MG 1 tablet Orally every 12 hrs ActiveComment on above:Take 1 tablet by mouth twice daily. Take 1 tablet by mouth two times a day.take 1 tablet by mouth twice a day omeprazole 40 mg delayed release oral capsule (20 sources)Proton Pump InhibitorStart: 27-00-7433Nkpsmxokzw 40 mg capsule,delayed release(DR/EC) Active 0 .ROUTE .COMPLEX 90 August 18, 2025 3:37pm TAKE 1 CAPSULE BY MOUTH 30 MINUTES BEFORE THE MORNING MEAL FOR GERD Complies with drug therapyStart: 62-08-0166dsni 40 mg by mouth once daily Prilosec 40 mg, Oral, Daily, Refills(s) 0, Control of stomach acid Start Date: 10/25/24 Status: OrderedStart: 01-06-2021 End: 49-70-9449byow 1 capsule by mouth twice dailyOmeprazole 40 mg capsule,delayed release(DR/EC) Discontinued 40 MG PO Twice daily 60 3 January 06, 2021 1:00am July 20, 2023 11:46amStart: 01-27-2011 End: 42-84-1232Qyqktgujbv 40 mg capsule,delayed release(DR/EC) Discontinued 40 MG PO Every morning 30 30 August 29, 2024 11:05am August 18, 2025 3:37pm gerd Take 1 capsule orally 30 minutes before morning meal.Comment on above:Take 1 capsule by mouth once daily.ondansetron 4 mg disintegrating oral tablet (20 sources)Serotonin-3 Receptor AntagonistStart: 06-06-2024 End: 37-98-1153dykh 1 tablet by mouth every six hours as needed for nausea Ondansetron 4 mg tablet,disintegrating Active 0 .ROUTE .COMPLEX 12 5 June 08, 2025 1:13pm DISSOLVE 1 TABLET IN MOUTH EVERY 6 HOURS NEEDED FOR NAUSEA Complies with drug therapyStart: 11-25-2020 End: 41-49-2357suqv 1 tablet by mouth every eight hours [...] and allow to dissolve Orally PRN PRN Vezguc27 hr venlafaxine 150 mg extended release oral capsule (20 sources)Serotonin and Norepinephrine Reuptake InhibitorStart: 46-04-9938rcno 1 capsule by mouth once daily in the morningVenlafaxine 150 mg capsule,extended release 24hr Active 150 MG PO Every morning August 15, 2025 9:48am Complies with drug therapyStart: 08-09-2025 End: 72-13-6765zlms 1 capsule by mouth once dailyVenlafaxine 150 mg capsule,extended release 24hr Discontinued 0 .ROUTE .COMPLEX 90 August 09, 2025 6:54am August 15, 2025 9:48am TAKE 1 CAPSULE BY MOUTH EVERY DAY Start: 02-22-2025 End: 86-49-2249amya 1 capsule by mouth once dailyVenlafaxine 150 mg capsule,extended release 24hr Discontinued 150 MG PO Daily February 22, 2025 10:43am August 09, 2025 6:54amStart: 95-55-7132xlpz 150 mg by mouth once dailyvenlafaxine 150 mg, Oral, Daily, Refills(s) 0, Depression Start Date: 10/25/24 Status: OrderedStart: 08-20-2024 End: 92-90-9176mfie 1 capsule by mouth once dailyVenlafaxine 150 mg capsule,extended release 24hr Discontinued 0 .ROUTE .COMPLEX February 13, 2025 7:42am February 22, 2025 10:43am TAKE 1 CAPSULE BY MOUTH EVERY DAYStart: 45-46-0400wcqf 1 capsule by mouth once dailyVenlafaxine Active 0 .ROUTE .COMPLEX August 20, 2024 7:38pm TAKE 1 CAPSULE BY MOUTH EVERY DAYStart: 02-23-2024 venlafaxine XR (Effexor XR) 150 MG 24 hr capsule .COMPLEX 02/23/2024 Active Start: 02-23-2024 End: 79-85-6037ahgn 1 capsule by mouth once dailyVenlafaxine 150 mg capsule,extended release 24hr Discontinued 0 .ROUTE .COMPLEX 90 February 13, 2025 7:42am February 22, 2025 10:43am TAKE 1 CAPSULE BY MOUTH EVERY DAYStart: 02-08-2024 End: 54-99-6982rtvg 1 tablet by mouth once dailyVenlafaxine 75 mg tablet Discontinued 75 MG PO Daily February 08, 2024 12:00am June 08, 2024 2:30pm Start: 07-20-2023 End: 77-10-2070jbwc 1 capsule by mouth once dailyVenlafaxine 150 mg capsule,extended release 24hr Discontinued 150 MG PO Daily February 08, 2024 12:00am February 23, 2024 1:31pmStart: 01-06-2021 End: 27-55-9696dozy 1 capsule by mouth once dailyVenlafaxine 75 mg capsule,extended release 24hr Discontinued 75 MG PO Daily January 06, 2021 1:00am July 20, 2023 11:47amtake 1 tablet by mouth every twenty-four hours Venlafaxine HCl 75 MG 1 tablet with food Orally Once a day Not-Taking/PRNComment on above:Take 1 capsule by mouth once daily.Vitamin D (1 source)Start: 12-94-4373Lgqyvrc D 50,000 International_Unit, Oral, qWeek, Refills(s) 0, Prophylaxis Start Date: 10/25/24 Status: Orderedwarfarin sodium 4 mg oral tablet (20 sources)Vitamin K AntagonistStart: 61-78-5677seyz 1 tablet by mouth once dailyWarfarin 4 mg tablet Active 0 .ROUTE .COMPLEX 90 3 November 17, 2024 2:07pm TAKE 1 TABLET BY MOUTH EVERY DAY DIRECTED BY [facility] 90 Complies with drug therapyStart: 39-78-0817foztxegy 4 mg Tab 2 mg = 0.5 tab(s), Oral, MonTuWeThFrSu Start Date: 11/02/24 Status: OrderedStart: 07-20-2023 End: 42-99-4954orwl 1 tablet by mouth onceWarfarin 2 mg Tablet Discontinued 2 MG PO every Wednesday, Wednesday, Wednesday, and Thursday July 20, 2023 12:00am February 08, 2024 11:26amStart: 10-03-2015 End: 79-35-0171aqda 1 tablet by mouth onceWarfarin 4 mg tablet Discontinued 4 MG PO every Wednesday, and Wednesday January 06, 2021 1:00am November 17, 2024 2:07pmComment on above:Take 1 tablet by mouth once daily.zonisamide 100 mg oral capsule (20 sources)Anti-epileptic AgentStart: 06-22-2025 End: 90-22-7442slpa 3 capsules by mouth once daily at bedtimezonisamide (ZONEGRAN) 100 mg capsule Indications: Localization-related (focal) (partial) symptomatic epilepsy and epileptic syndromes with complex partial seizures, intractable, without status epilepticus (HCC) Take 3 capsules by mouth daily at bedtime. 270 capsule 1 06/22/2025 12/19/2025 ActiveStart: 56-23-2318lnqy 300 mg by mouth once daily at bedtimeZonegran 300 mg, Oral, Once a day (at bedtime), Refills(s) 0, Seizure Start Date: 10/25/24 Status: OrderedStart: 59-26-6047nzke 300 mg by mouth once dailyZonisamide Active 300 MG PO Daily February 09, 2024 3:12pmStart: 12-23-2023 End: 68-87-6583qieq 3 capsules by mouth once daily at bedtimezonisamide (ZONEGRAN) 100 mg capsule Indications: Localization-related (focal) (partial) symptomatic epilepsy and epileptic syndromes with complex partial seizures, intractable, without status epilepticus (HCC) Take 3 capsules by mouth daily at bedtime. 270 capsule 1 12/11/2024 06/09/2025 ActiveStart: 09-19-2021 End: 23-26-7075fbur 2 capsules by mouth once daily at bedtimezonisamide (ZONEGRAN) 100 mg capsule Indications: Partial epilepsy with impairment of consciousness, intractable (HCC) Take 2 capsules by mouth daily at bedtime. 180 capsule 3 09/10/2022 12/23/2023 DiscontinuedStart: 01-06-2021 End: 91-27-9960xggs 1 capsule by mouth once dailyZonisamide 100 mg capsule Active 200 MG PO Daily February 09, 2024 3:12pm seizures Complies with drug therapyStart: 01-06-2021 End: 72-50-3778hwrs 200 mg by mouth once dailyZonisamide Discontinued 200 MG PO Daily January 06, 2021 1:00am February 09, 2024 3:12pmComment on above:Take 2 capsules by mouth daily at bedtime.Take 3 capsules by mouth daily at bedtime. Completed/Discontinued Medications MedicationDrug Class(es)DatesSig (Normalized)Sig (Original)acetaminophen 325 mg / HYDROcodone bitartrate 5 mg oral tablet (20 sources)Opioid AgonistStart: 02-08-2024 End: 45-48-5204fkhs 1 tablet by mouth every eight hours as neededHydrocodone- Acetaminophen 5-325 mg tablet Discontinued 1 TAB PO Every 8 hours as needed 0 February 08, 2024 12:00am March 29, 2024 2:00pmStart: 08-05-2023 End: 73-65-8708qeqn 1 tablet by mouth every six hours as needed for pain Hydrocodone-Acetaminophen 5-325 mg Tablet Discontinued 1 TAB PO Q6H as needed for Pain Scale 1 - 5 56 14 0 August 05, 2023 February 08, 2024 11:22am Spinal stenosis of lumbar region with neurogenic claudication Spinal stenosis, lumbar region with neurogenic claudicationStart: 41-94-5744qjpv 1 tablet by mouth every eight hours as needed for painStart: 83-80-1679rnpi 1 tablet by mouth every eight hours as needed for painHYDROcodone-Acetaminophen 5-325 MG 1 tablet as needed Orally every 8 hours as needed for pain, may cause sedation for 7 days March, Activealendronic acid 70 mg oral tablet (4 sources)BisphosphonateStart: 08-15-2021 End: 13-93-2373txix 1 tablet by mouth every weekalendronate (FOSAMAX) 70 mg tablet Take 70 mg by mouth one time a week. 0 08/15/2021 09/10/2022 Discontinued (Discontinued by another Health Care Provider)Comment on above:Take 70 mg by mouth one time a week.amitriptyline hydrochloride 50 mg oral tablet (20 sources)Tricyclic AntidepressantStart: 08-29-2024 End: 77-38-1100vyje 1 tablet by mouth once daily at bedtimeAmitriptyline 50 mg tablet Discontinued 50 MG PO Daily at bedtime 30 30 11 August 29, 2024 12:00a m August 15, 2025 9:46am Take 1 tablet orally at bedtime.Start: 06-08-2024 End: 61-90-8326Cqmsieznrnhcv 10 mg tablet Discontinued 25 MG PO Daily at bedtime June 08, 2024 2:28pm September 07, 2024 9:18am nauseaStart: 06-08-2024 End: 35-38-0145udjl 25 mg by mouth once daily at bedtimeAmitriptyline Discontinued 25 MG PO Daily at bedtime June 08, 2024 2:28pm September 07, 2024 9:18amStart: 72-84-9564bllbenqdvoryt (Elavil) 10 MG tablet Daily at bedtime 07/20/2023 ActiveStart: 07-20-2023 End: 36-13-7892Djcvlzibyypts 10 mg tablet Discontinued 15 MG PO Daily at bedtime July 20, 2023 12:00am June 08, 2024 2:32pm nauseaStart: 07-20-2023 End: 83-54-6523hctl 15 mg by mouth once daily at bedtimeAmitriptyline Discontinued 15 MG PO Daily at bedtime July 20, 2023 12:00am June 08, 2024 2:32pmStart: 20-75-3016Lfsvncdctslex HCl 10 MG 2 and 1/2 tablets Orally Once a day Dec, ActiveStart: 95-65-7898fjts 1.5 tablets by mouth every twenty-four hoursAmitriptyline HCl 10 MG 1.5 tablets Orally Once a day Dec, ActiveStart: 67-73-9710rnbi 1 tablet by mouth at bedtimeAmitriptyline HCl 25 MG 1 TABLET Orally AT BEDTIME for 30 days Feb, ActiveStart: 65-78-8619mygl 1 tablet by mouth at bedtimeAmitriptyline HCl 10 MG 1 TABLET Orally AT BEDTIME Feb, ActiveComment on above:Take 25 mg by mouth daily at bedtime.onabotulinumtoxina 100 unt injection (10 sources)Acetylcholine Release InhibitorStart: 07-18-2025 End: 61-69-8750qvqrye 1 dose by intramuscular injection every 30 ydps918 Units, INTRAMUSCULAR, ONCE (UP TO 30 DAYS AMB), 1 dose, On Wed07/18/25 at 1300, This record documents the total dose provided to patient. See progress note for specific locations and amounts administered. REFRIGERATE - Pharmaceutical Waste: Lab Pack -Start: 07-18-2025 End: 00-33-2281vvyzhkgauolh toxin type A 200 Units injection (BOTOX)Start: 04-10-2025 End: 50-35-2789xmhryh 1 dose by intramuscular injection every 30 cwjj048 Units, INTRAMUSCULAR, ONCE (UP TO 30 DAYS AMB), 1 dose, On Wed04/10/25 at 1230, This record documents the total dose provided to patient. See progress note for specific locations and amounts administered. REFRIGERATE - Pharmaceutical Waste: Lab Pack -Start: 04-10-2025 End: 96-39-2580aseabfzvslua toxin type A 200 Units injection (BOTOX)Start: 01-05-2025 End: 47-99-7363bacpmiigqmdu toxin type A 155 Units injection (BOTOX)Start: 01-05-2025 End: 31-14-5369691 Units, OTHER, ONCE (UP TO 30 DAYS AMB), 1 dose, On Wed01/05/25 at 1200, This record documents the total dose provided to patient. See progress note for specific locations and amounts administered. REFRIGERATE - Pharmaceutical Waste: Lab Pack -Start: 09-05-2024 End: 52-00-4979nldwhn 1 dose by intramuscular injection every 30 ttlq577 Units, INTRAMUSCULAR, ONCE (UP TO 30 DAYS AMB), 1 dose, On Wed09/05/24 at 1400, This record documents the total dose provided to patient. See progress note for specific locations and amounts administered. REFRIGERATE - Pharmaceutical Waste: Lab Pack -Start: 09-05-2024 End: 16-15-2477hfynwhvgflyf toxin type A 200 Units injection (BOTOX)Start: 05-23-2024 End: 31-55-0591lodfciehuvik toxin type A 200 Units injection (BOTOX)Start: 05-23-2024 End: 25-45-0415bgbuefofwibk toxin type A 200 Units injection (BOTOX)cephalexin 500 mg oral capsule (19 sources)Cephalosporin AntibacterialStart: 11-17-2024 End: 52-28-9154srkl 1 capsule by mouth three times dailyCephalexin 500 mg capsule Discontinued 500 MG PO Three times daily 21 7 0 November 17, 2024 1:00am November 24, 2024 2:56pmStart: 40-09-8424mxsm 1 capsule by mouth twice daily Keflex 500 MG 1 capsule Orally bid for 7 days Jul, Activecyclobenzaprine hydrochloride 5 mg oral tablet (20 sources)Muscle RelaxantStart: 06-27-2024 End: 96-50-9261htly 1 tablet by mouth twice daily as neededCyclobenzaprine 5 mg tablet Discontinued 5 MG PO Twice daily as needed August 29, 2024 10:52am De chloeber 2023 9:59amdoxycycline monohydrate 100 mg oral capsule (20 sources)Tetracycline-class DrugStart: 02-21-2025 End: 26-84-4492vlra 1 capsule by mouth twice dailyDoxycycline Monohydrate 100 mg capsule Discontinued 100 MG PO Twice daily 20 10 0 February 21, 2025 12:00am July 02, 2025 2:58pm Edema of both lower extremities Localized edemaStart: 11-21-2024 End: 65-50-7899lkyz 1 capsule by mouth twice dailyDoxycycline Hyclate 100 mg capsule Discontinued 100 MG PO Twice daily 20 10 0 November 21, 2024 1:00am February 21, 2025 2:07pmfurosemide 20 mg oral tablet (16 sources)Loop DiureticStart: 08-15-2025 End: 80-70-3667ayxq 1 tablet by mouth once dailyFurosemide 20 mg tablet Discontinued 0 .ROUTE .COMPLEX 90 1 August 15, 2025 8:59am August 15, 2025 9:48am TAKE 1 TABLET BY MOUTH EVERY DAYStart: 02-22-2025 End: 33-33-6938omhb 1 tablet by mouth once daily in the morningFurosemide 20 mg tablet Discontinued 20 MG PO Every morning August 15, 2025 9:47am August 28, 2025 9:48amhydrALAZINE hydrochloride 50 mg oral tablet (20 sources)Arteriolar VasodilatorStart: 01-06-2021 End: 42-23-5715Nhxxyiyrouc 50 mg tablet Discontinued 50 MG PO As Directed January 06, 2021 1:00am July 20, 2023 11:41amlinaclotide 0.072 mg oral capsule (20 sources)Guanylate Cyclase-C AgonistStart: 02-08-2024 End: 26-55-7389xkmk 1 capsule by mouth once daily as neededLinaclotide 72 mcg capsule Discontinued 72 MCG PO Daily as needed September 07, 2024 9:21am October 27, 2024 10:00amStart: 90-71-8666Navsbwk 72 MCG 1 capsule at least 30 minutes before the first meal of the day on an empty stomach Orally Once a day Dec, ActiveStart: 88-15-5883Riuekzy 72 MCG 1 capsule at least 30 minutes before the first meal of the day on an empty stomach Orally Once a day Dec, Activelosartan potassium 25 mg oral tablet (20 sources)Angiotensin 2 Receptor BlockerStart: 07-20-2023 End: 95-55-3283euwm 1 tablet by mouth once daily in the morningLosartan 25 mg tablet Discontinued 25 MG PO Every morning 90 90 3 November 08, 2024 6:58pm November 12, 2024 3:47pm htnmelatonin 5 mg oral tablet (20 sources)Start: 01-06-2021 End: 98-71-0581zvqs 1 tablet by mouth at bedtime as neededMelatonin 5 mg Tablet Discontinued 5 MG PO Bedtime as needed for Insomnia January 06, 2021 1:00am July 20, 2023 11:48ammupirocin 0.02 mg/mg topical ointment (20 sources)RNA Synthetase Inhibitor AntibacterialStart: 02-08-2024 End: 82-42-5552Cnypogkra 2 % ointment Discontinued 1 APPLIC TOPICAL Twice daily February 08, 2024 12:00am June 08, 2024 2:30pmMupirocin 2 % 1 application Externally Twice a day Not-Taking/PRNnaproxen sodium 220 mg oral tablet (20 sources)Nonsteroidal Anti-inflammatory DrugStart: 01-06-2021 End: 55-58-2053tcwc 1 tablet by mouth twice daily as needed for painNaproxen Sodium (Aleve) 220 mg Tablet Discontinued 220 MG PO Twice daily as needed for Pain January 06, 2021 1:00am July 20, 2023 11:48am End: 64-39-6207rixikwpt sodium (ALEVE ORAL) Take by mouth as needed. 0 09/10/2022 Discontinued (Discontinued by another Health Care Provider)naproxen sodium (ALEVE ORAL) Take by mouth as needed. 0 ActiveComment on above:Take by mouth as needed.tiZANidine 4 mg oral tablet (20 sources)Central alpha-2 Adrenergic AgonistStart: 08-05-2023 End: 12-47-3190hqof 1 tablet by mouth twice daily as needed for muscle spasms Tizanidine 4 mg Tablet Discontinued 4 MG PO Twice daily as needed for Muscle Spasm 28 14 1 August 05, 2023 12:00am February 08, 2024 11:24amtraMADol hydrochloride 50 mg oral tablet (20 sources)Opioid AgonistStart: 03-29-2024 End: 22-24-0184mqxi 1 tablet by mouth twice daily as needed for painTramadol 50 mg tablet Discontinued 50 MG PO Twice daily as needed for pain 30 15 0 April 13, 2024 3:16pm October 27, 2024 10:00am Spondylosis of lumbosacral spine with radiculopathy Other spondylosis with radiculopathy, lumbosacral regionStart: 10-14-2020 End: 32-98-7450smzt 1 tablet by mouth once dailyTramadol 50 mg tablet Discontinued 50 MG PO Daily January 06, 2021 1:00am July 20, 2023 11: 48am Problems Active Problems Problem ClassificationProblemDateDocumented DateEpisodic/ChronicAcute bronchitis (8 sources)Acute bronchitis; Translations: [Acute bronchitis due to other specified organisms]EpisodicAnxiety disorders (20 sources)Anxiety; Translations: [Anxiety disorder, unspecified]Onset: 913652-14-6500JtvrqiyFsjoou (20 sources)Asthma without status asthmaticus; Translations: [Asthma, unspecified, unspecified status]Onset: 437828-89-4879GvuogycDikiudu tract disease (1 source)Disorder of gallbladder; Translations: [Disease of gallbladder, unspecified]87-62-1781IjgnftbxLaturt of other GI organs; peritoneum (20 sources)Carcinoma of ampulla of Vater; 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]Onset: 043004-77-3214SpawsheWnpwxt of other GI organs; peritoneum (20 sources)History of cancer of ampulla of duodenum; Translations: [Personal history of malignant neoplasm of other digestive organs]Onset: 04-30-2014 59-87-6177QwvxbiufOryobs of pancreas (20 sources)Malignant tumor of pancreas; Translations: [Malignant neoplasm of pancreas, unspecified]Onset: 872434-60-3408XapoaaeBjpvbnm on above: surgery, chemo, radiationCardiac dysrhythmias (20 sources)Sinus node dysfunction; Translations: [Sick sinus syndrome]Onset: 315164-39-7234YelbqemUszgyct kidney disease (20 sources)Chronic kidney disease stage 3B ; Translations: [Stage 3b chronic kidney disease]Onset: 992653-88-8254TicqjugWedfkyecfujja of surgical procedures or medical care (16 sources)Postoperative wound infection; Translations: [Infection following a procedure, other surgical site,initial encounter]97-86-3594ZrfrduxkVinmnfdhjd associated with dizziness or vertigo (20 sources)Benign paroxysmal positional vertigo; Translations: [Benign paroxysmal vertigo, left ear] Resolved: 01-91-2379GxfbbjjwWplngvwyta disorders (20 sources)Cardiac pacemaker in situ; Translations: [Presence of cardiac pacemaker]Onset: 231711-58-5338MszhpzoRtqlrjji of white blood cells (20 sources)Leukopenia; Translations: [Decreased white blood cell count, unspecified]39-47-7793GxfqzcwH Codes: Adverse effects of medical drugs (20 sources)Adverse reaction to drug; Translations: [Adverse effect of anticoagulant antagonists, vitamin K andother coagulants, initial encounter] 13-20-8546AajdniqwZbkonzhi; convulsions (20 sources)Partial epilepsy with impairment of consciousness; Translations: [Localization-related (focal) (partial) symptomatic epilepsy and epileptic syndromes with complex partial seizures, intractable, without status epilepticus]Onset: 035631-93-5519AelozhcAkmitirwkt disorders (20 sources)Esophageal reflux finding; Translations: [Esophageal reflux]Onset: 502827-38-3518UvouecxCpmifbtfyn disorders (16 sources)Esophageal disorders; Translations: [Gastroesophageal reflux disease with esophagitis without hemorrhage]Essential hypertension (20 sources)Hypertensive disorder; Translations: [Essential (primary) hypertension]Onset: 109453-71-1173UmrasbdSpfibzki; including migraine (20 sources)Migraine; Translations: [Migraine, unspecified, not intractable, without status migrainosus]Onset: 954432-23-8415DgajeapNjuxaxnimamv with complications and secondary hypertension (20 sources)Chronic kidney disease due to hypertension; Translations: [Hypertensive chronic kidney disease withstage 1 through stage 4 chronic kidney disease, or unspecified chronic kidney disease]Onset: 62-03-9970Dnqcgdw Immunizations and screening for infectious disease (9 sources)Encounter for immunization; Translations: [Vaccination given]Onset: 43-79-7451EpuvjopaTfwnwof and fatigue (1 source)Fatigue; Translations: [Chronic fatigue, unspecified]ChronicMenopausal disorders (17 sources)Postmenopausal bleeding; Translations: [Postmenopausal bleeding] Onset: 027183-89-3742TwawbkkQyokbpvltlubk mental health disorders (8 sources)Non-organic sleep disorder; Translations: [Nonorganic sleep disorder, unspecified]Onset: 44-86-5056OmkhbbfMraa disorders (20 sources)Depressive disorder; Translations: [Depression]Onset: 08-19-2015 51-54-4705YclqgcbAyafvr and vomiting (20 sources)Nausea; Translations: [Nausea]Onset: 09-19-2018 Resolved: 28-31-7224TzbnulilMrsjxszlxwa chest pain (20 sources)Tight chest; Translations: [Other chest pain]29-82-7508Gfhqqzsi Nutritional deficiencies (20 sources)Vitamin D deficiency; Translations: [Vitamin D deficiency, unspecified]91-66-2935AajpgfdSskbfkiwkldoxh (20 sources)Arthritis; Translations: [Unspecified osteoarthritis, unspecified site]63-58-7642FkfhojqDfntokxepzkc (20 sources)Osteoporosis; Translations: [Age-related osteoporosis without current pathological fracture]ChronicOther aftercare (16 sources)H/O: high risk medication; Translations: [Other fci (current) drug therapy]EpisodicOther aftercare (20 sources)Long-term current use of anticoagulant; Translations: [skilled nursing (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 of anticoagulants]Onset: 515093-25-8664EwwyebjbMdtrn aftercare (5 sources)Encounter for therapeutic drug level monitoring; Translations: [ENC THERAPEUTC DRUG LEVL MONITORING]Onset: 94-26-9755XzccwqnjDsrvc aftercare (1 source)tank terminal gauger (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 of anticoagulants; Translations: [LONGTERM CURRNT USE ANTICOAGULANTS]Onset: 06-73-8939TbchntfbQiurb aftercare (8 sources)Long-term current use of drug therapy; Translations: [Other fci (current) drug therapy]EpisodicOther aftercare (1 source)Drug therapy finding; Translations: [Other fci (current) drug therapy]67-91-7656KpbglngwAzbdj and ill-defined heart disease (1 source)Heart disease; Translations: [Heart disease, unspecified]02-08-2024 ChronicOther and unspecified benign neoplasm (17 sources)History of polyp of colon; Translations: [Personal history of colonic polyps]EpisodicOther bone disease and musculoskeletal deformities (8 sources)Disorder of bone; Translations: [Disorder of bone, unspecified] EpisodicOther circulatory disease (20 sources)Inferior vena cava filter in situ; Translations: [Presence of other vascular implants and grafts]Onset: 969202-28-8683CnzlzejTavgm connective tissue disease (16 sources)Unspecified rotator cuff tear or rupture of left shoulder, not specified as traumatic; Translations: [Traumatic rupture of tendon of left supraspinatus muscle (disorder)]EpisodicOther connective tissue disease (20 sources)Adhesive capsulitis of left shoulder; Translations: [Adhesive capsulitis of left shoulder]69-68-6615QrxoeiiiNzxro connective tissue disease (2 sources)Arthrodesis statusEpisodicOther connective tissue disease (8 sources)Nontraumatic rupture of rotator cuff of left shoulder; Translations: [Unspecified rotator cuff tearor rupture of left shoulder, not specified as traumatic]EpisodicOther connective tissue disease (20 sources)Trochanteric bursitis; Translations: [Trochanteric bursitis, right hip]93-33-0322VmldsiabFoghc connective tissue disease (4 sources)Trochanteric bursitis, right hip; Translations: [Enthesopathy of hip region]75-36-0855AarvkalmGakvd connective tissue disease (16 sources)Swelling of right lower limb; Translations: [Other specified soft tissue disorders]34-00-9801BhrlqlzrEblsu connective tissue disease (5 sources)Other specified soft tissue disorders; Translations: [Swelling of limb]73-85-9470RueiouvoQbvia diseases of kidney and ureters (20 sources)Secondary hyperparathyroidism; Translations: [Secondary hyperparathyroidism of renal origin]10-17-0427MoeshdkAokhr diseases of kidney and ureters (12 sources)Secondary hyperparathyroidism of renal origin; Translations: [Secondary hyperparathyroidism (of renal origin)]85-96-5036LkksxkpAdsvi diseases of kidney and ureters (1 source)Kidney disease; Translations: [Disorder of kidney and ureter, unspecified]02-28-3802YzcipqznIvutp gastrointestinal disorders (20 sources)Irritable bowel syndrome characterized by constipation; Translations: [Irritable bowel syndrome with constipation]85-30-4423ZlramjwLmbgz gastrointestinal disorders (1 source)Irritable bowel syndrome with [...] bowel function; Translations: [Change in bowel habit] 75-67-4314TnetavazXqkok hereditary and degenerative nervous system conditions (4 sources)Impaired cognition; Translations: [Mild cognitive impairment, so stated]Onset: 369624-52-4859RqkyecaMoypj hereditary and degenerative nervous system conditions (1 source)Mild cognitive impairment, so stated; Translations: [MCI (mild cognitive impairment)]Onset: 72-25-9772QmagdhmBxaav injuries and conditions due to external causes (8 sources)History of fall; Translations: [History of falling]EpisodicOther nervous system disorders (1 source)Chronic pain syndrome; Translations: [Chronic pain syndrome]Onset: 92-68-1056DawgjkgBkmdg nervous system disorders (2 sources)Chronic pain syndrome; Translations: [Chronic pain syndrome] 58-83-9099ZsybcqePnxop nervous system disorders (9 sources)Impaired cognition; Translations: [Other symptoms and signs involving cognitive functions and awareness] Resolved: 623186-27-4351NsbbbfoiNjkro nervous system disorders (20 sources)Postoperative pain ; Translations: [Other acute postprocedural pain] 76-75-3939YahrdwqnPdgra nutritional; endocrine; and metabolic disorders (20 sources)Obesity; Translations: [Obesity, unspecified]ChronicOther nutritional; endocrine; and metabolic disorders (3 sources)Obese class II; Translations: [Obesity, Class II, BMI 35-39.9]Onset: 884867-63-2776DnjjkapShvtx screening for suspected conditions (not mental disorders or infectious disease) (17 sources)Encounter for screening mammogram for malignant neoplasm of breast; Translations: [Other screening mammogram]Onset: 21-05-5052LtqxcjjhLvsrs upper respiratory infections (17 sources)Acute maxillary sinusitis; Translations: [Acute maxillary sinusitis, unspecified]EpisodicPhlebitis; thrombophlebitis and thromboembolism (20 sources)Deep venous thrombosis of right lower extremity; Translations: [Acute embolism and thrombosis of unspecified deep veins of right lower extremity]Onset: 091561-01-5701WvnvfylyJcxxqhnz codes; unclassified (20 sources)Insomnia; Translations: [Other insomnia]Onset: ChronicResidual codes; unclassified (20 sources)Obstructive sleep apnea syndrome; Translations: [Obstructive sleep apnea (adult) (pediatric)]15-57-6715WqkqcuuTpgynsle codes; unclassified (6 sources)Obstructive sleep apnea (adult) (pediatric); Translations: [Obstructive sleep apnea (adult)(pediatric)]ChronicResidual codes; unclassified (8 sources)Asymptomatic menopausal state; Translations: [Menopause]Episodic Residual codes; unclassified (16 sources)Edema; Translations: [Localized edema]EpisodicResidual codes; unclassified (8 sources)Menopause present; Translations: [Asymptomatic menopausal state] EpisodicResidual codes; unclassified (8 sources)Postmenopausal state; Translations: [Asymptomatic menopausal state] EpisodicResidual codes; unclassified (9 sources)Localized edema; Translations: [Localized edema]43-27-0234Umrelblv Residual codes; unclassified (20 sources)History of operative procedure on lumbar spinal structure; Translations: [Other specified postprocedural states]83-31-0824XekspjibUcpjdbjk codes; unclassified (4 sources)Other specified postprocedural states; Translations: [Personal history of surgery to other organs]70-35-7915TnyouhjvQovttlps codes; unclassified (1 source)Amnesia; Translations: [Other amnesia]75-10-8483IcheiopqGyvntvgz codes; unclassified (10 sources)Bilateral lower limb edema; Translations: [Localized edema] 95-81-9540UqvesjewMaqvvbzg codes; unclassified (3 sources)Localized edema; Translations: [Edema]79-75-1619KgogajgrVetpsbb detachments; defects; vascular occlusion; and retinopathy (16 sources)Retinal hemorrhage; 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, bilateral] ChronicSkin and subcutaneous tissue infections (20 sources)Abscess of abdominal wall; Translations: [Cutaneous abscess of abdominal wall]37-55-4899QfchxjxpIroynhvokyt; intervertebral disc disorders; other back problems (20 sources)Cervical spondylosis; Translations: [Spondylosis without myelopathy or radiculopathy, cervical region]Onset: 53-33-6493TffwwjnDdiphclbjjw; intervertebral disc disorders; other back problems (20 sources)Thoracic and lumbosacral neuritis; Translations: [Thoracic or lumbosacral neuritis or radiculitis, unspecified]Onset: 04-30-2014 Resolved: 08-97-8373BngvwywpTzjtpxltemd injury; contusion (20 sources)Intra-abdominal hematoma; Translations: [Contusion of abdominal wall, initial encounter]Onset: 305111-18-5412VavncbgaVqgahah disorders (20 sources)Thyroid nodule; Translations: [Nontoxic single thyroid nodule] ChronicUnclassified (3 sources)LOW BACK PAIN, UNSPECIFIED; Translations: [LOW BACK PAIN, UNSPECIFIED]Onset: 38-09-1431Myuymzernhvu (8 sources)Exposure to acute respiratory syndrome coronavirus 2; Translations: [Contact with and (suspected) exposure to COVID-19]Unclassified (1 source)Obesity, Class II, BMI 35-39.9; Translations: [Obesity, Class II, BMI 35-39.9]Onset: 50-60-7546Bwhypwwbrkvq (1 source)M96.1 - Postlaminectomy syndrome, not elsewhere classifiedViral infection (4 sources)COVID-19; Translations: [COVID-19]Onset: 06-08-2022 Past or Other Problems Problem ClassificationProblemDateDocumented DateEpisodic/ChronicAbdominal pain (20 sources)Abdominal pain; Translations: [Unspecified abdominal pain]Onset: 500915-60-9444CldhgqeeTcyyjeypi and vision defects (20 sources)Homonymous hemianopia; Translations: [Homonymous bilateral field defects, unspecified side]Onset: 314011-39-7404SwxirbnfCcsraor dysrhythmias (20 sources)Bradycardia; Translations: [Bradycardia, unspecified]Onset: 480990-64-4053FoqytxciPfmbgzy kidney disease (4 sources)Chronic kidney disease; Translations: [CHRONIC KIDNEY DISEASE STAGE 3A]Onset: 80-31-4279Qwdrexgrburn of device; implant or graft (20 sources)Complication of intravascular line; Translations: [Unspecified complication of cardiac and vascularprosthetic device, implant and graft, initial encounter]Onset: 778513-40-4724CjkwwzdtGippmhpqlk and other anemia (9 sources)Anemia; Translations: [Anemia, unspecified]Onset: 04-13-2019 75-56-4142ZpfigyupYshunuax; convulsions (20 sources)Seizure; Translations: [Other convulsions]Onset: 01-24-2015 Resolved: 320572-24-7124WaxekzquRdfndfa and fatigue (20 sources)Fatigue; Translations: [Other fatigue]Onset: EpisodicNeoplasms of unspecified nature or uncertain behavior (8 sources)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; Translations: [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] Resolved: 33-82-9775MhfuzeplGeoiq aftercare (20 sources)Anticoagulant effect; Translations: [tank terminal gauger (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 of anticoagulants]Onset: 060778-56-9621WwiearfmWxpfg aftercare (1 source)Other superintendent marine oil terminal (current) drug therapy; Translations: [OTH TEMPORARY STAFF ACCOUNTANT CURRENT DRUG THERAPY]Onset: 96-53-4100SifjhgsiHkmgv aftercare (8 sources)Encounter for other orthopedic aftercare; Translations: [Encounter for other orthopedic aftercare] Resolved: 03-13-8136MtqnqsrxHzzff aftercare (8 sources)Therapeutic drug level - finding; Translations: [Encounter for therapeutic drug level monitoring] Resolved: 22-09-1698CrisefzzDkkfj bone disease and musculoskeletal deformities (8 sources)Tietze's disease; 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 junction syndrome [Tietze]] Resolved: 73-42-2893GjywytbhGquxc circulatory disease (8 sources)Cardiovascular symptoms; Translations: [Other specified symptoms and signs involving the circulatory and respiratory systems] Resolved: 93-44-7745CdxxuloaSjwee connective tissue disease (20 sources)Pain in limb; Translations: [Pain in unspecified limb]Onset: 727630-90-0255QemniqiuFfute connective tissue disease (20 sources)Pain in left arm; Translations: [Pain in left arm]Onset: 10-24-2019 98-14-7841RavbauwsXojck connective tissue disease (8 sources)Spasm; Translations: [Spasm of muscle]Onset: 64-90-7463HrpzjomgZhklx connective tissue disease (8 sources)Unspecified rotator cuff tear or rupture of unspecified shoulder, not specified as traumatic; Translations: [Unsp rotatr-cuff tear/ruptr of unsp shoulder, not trauma] Resolved: 59-18-5472PuyowgplTvrvg connective tissue disease (8 sources)Full thickness rotator cuff tear; Translations: [Complete rotator cuff tear or rupture of left shoulder, not specified as traumatic] Resolved: 52-16-2203ZlhgqjoyVatjo connective tissue disease (8 sources)Neuralgia; Translations: [Neuralgia and neuritis, unspecified] Resolved: 70-82-1917OjsiarilWsmjm eye disorders (20 sources)Hypertropia of right eye; 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, right eye]Onset: 659268-36-6630BkmfelvsOizsb liver diseases (20 sources)Alkaline phosphatase raised; Translations: [Abnormal levels of other serum enzymes]Onset: 272850-32-2986JdctvxrsBbbwz nervous system disorders (20 sources)Paresthesia; Translations: [Paresthesia of skin]Onset: 01-05-2019 98-01-0043UxvrieexWhrta non-traumatic joint disorders (8 sources)Shoulder joint pain; Translations: [Pain in left shoulder] Resolved: 53-72-0234QeujasslXbemi nutritional; endocrine; and metabolic disorders (20 sources)Abnormal weight loss; Translations: [Abnormal weight loss]Onset: 991037-10-6372RqosobukWejmt upper respiratory disease (8 sources)Bleeding from nose; Translations: [Epistaxis] Resolved: 20-57-7695LvgmrmdqPlcilfoh codes; unclassified (20 sources)Family history of malignant neoplasm of pancreas; Translations: [Family history of malignant neoplasm of digestive organs]Onset: 09-19-2018 66-78-5799VqmvpunqHdjluwxp codes; unclassified (1 source)Family history of malignant neoplasm of breast; Translations: [FAMILY HX MALIG NEOPLASM OF BREAST]Onset: 05-20-6236GdwvjyfcAvplqiyt codes; unclassified (1 source)Family history of malignant neoplasm of other organs or systems; Translations: [FAM HX MALIG NEOPLASM OTH ORGN/SYS]Onset: 24-63-5125Esokokjj Residual codes; unclassified (1 source)Other amnesia; Translations: [Memory loss]Onset: 05-07-5762Gpnxpktm Sprains and strains (8 sources)Neck sprain; Translations: [Strain of muscle, fascia and tendon at neck level, initial encounter] Resolved: 63-29-0475ExvrcbuwOzkavqotjgjj (1 source)LOW BACK PAIN, UNSPECIFIED; Translations: [LOW BACK PAIN, UNSPECIFIED] Onset: 62-47-5894Yvwzpsjmypsv (8 sources)Gynecological examination normal; Translations: [Routine gynecological examination]Onset: 02-22-2008 Results Test NameValueInterpretationReference RangeFacilityErythrocyte distribution width Auto (RBC) [Ratio]Ordered By: Katina Ordoñez on 29-31-3471Fbsvfcwistp distribution width (RBC) [Ratio]12.5 %11.0-15.0[facility] Glomerular filtration rate (GFR) estimation in non- AmericanOrdered By: Katina Ordoñez on 88-26-5159DUV/1.73 sq M.predicted among non-blacks MDRD (S/P/Bld) [Vol rate/Area]28 mL/min/{1.73_m2}Low>=60 mL/min/1.73m [address] [place], [place] [address]Hematocrit Auto (Bld) [Volume fraction]Ordered By: Katina Ordoñez on 83-78-0881Buxjfahmhv (Bld) [Volume fraction]40.5 %36.0-48.0[facility]edoHemoglobin [Mass/volume] in BloodOrdered By: Katina Ordoñez on 80-34-2713Hkvbupkyww (Bld) [Mass/Vol]12.9 g/dL12.0-16.0[facility]edoIron binding capacity [Mass/volume] in Serum or PlasmaOrdered By: Katina Ordoñez on 26-26-2167Dtzn binding capacity [Mass/Vol]278.0 ug/dL250.0-450.0 [facility]edoIron saturation [Mass Fraction] in Serum or PlasmaOrdered By: Katina Ordoñez on 11-02-0596Nzru saturation [Mass fraction]30.2 % [facility]edoLaboratory - Chemistry and Chemistry - challengeOrdered By: Katina Ordoñez on 44-22-4337Dqgqooi [Mass/Vol]3.9 g/dL3.4-5.0 [facility]edoCalcium [Mass/Vol]8.5 mg/dL8.5-10.1FMercy Health St. Vincent Medical CenterChloride [Moles/Vol]105 mmol/X18-975QfrgiwuafRegency Hospital ToledoCO2 [Moles/Vol]23.9 mmol/L21.0-32.0[facility]edoCreatinine [Mass/Vol]1.78 mg/dLHigh0.55-1.02[facility]edoFerritin [Mass/Vol]74.0 ng/mL8.0-252.0[facility] GFR/1.73 sq M.predicted MDRD (S/P/Bld) [Vol rate/Area]34 mL/min/{1.73_m2}Low>=60 mL/min/1.73m 2FMercy Health St[address] Vincent Medical CenterGlucose [Mass/Vol]104 mg/qI80-247 [facility]edoIron [Mass/Vol]84.0 ug/dL50.0-170.0[facility]edoMagnesium [Mass/Vol]2.1 mg/dL1.8-2.4FMercy Health St. Vincent Medical CenterPotassium [Moles/Vol]4.1 mmol/L3.5-5.1FLutheran Hospitalodium [Moles/Vol]141 mmol/J127-545KsapudgajRegency Hospital ToledoUrate [Mass/Vol]5.1 mg/dL2.6-6.0[facility] ToledoUrea nitrogen [Mass/Vol]25.0 mg/dLHigh7.0-18.0[facility] ToledoUrea nitrogen/Creatinine [Mass ratio]14.0 mg/mgRegency Hospital [facility] Bilirubin Ql (U)NegativeNEGATIVERegency Hospital ToledoGlucose (U) [Mass/Vol]NegativeNEGATIVERegency Hospital ToledoKetones Ql (U) NegativeNEGATIVERegency Hospital ToledopH (U)6.0 [pH]5.0-9.0[facility] Hospitalpecific gravity (U) [Rel density]1.0251.005-1.025 [facility] ToledoUrobilinogen Qn (U)1.0 {Lin'U}/dL0.2-1.0 [facility]edoLaboratory - Specimen informationOrdered By: Katina Ordoñez on 98-63-3133Xrubxnotht (U)CLEARCLEARFireChildren's Hospital for RehabilitationColor (U)YELLOWYELLOWRegency Hospital ToledoLaboratory - UrinalysisOrdered By: Katina Ordoñez on 68-83-6245Utisvnavq esterase Test strip Ql (U)NegativeNEGATIVERegency Hospital ToledoMucus Ql (Urine sed)NONE SEENNONE SEENRegency Hospital ToledoNitrite Ql (U)NegativeNEGATIVE [facility] ToledoProtein (U) [Mass/Vol]22.3 mg/dLHigh<=11.9 [facility] ToledoProtein Ql (U)NegativeNEG/TRACERegency Hospital ToledoLeukocytes [#/volume] corrected for nucleated erythrocytes in Blood by Automated counOrdered By: Katina Ordoñez on 84-21-8928DYG corrected for nucl RBC Auto (Bld) [#/Vol]4.7 10 3/uL4.0-11.0[facility] Auto (RBC) [Entitic mass]Ordered By: Katina Ordoñez on 08-06-2025 [facility] (RBC) [Entitic mass]32.3 pg26.7-34.0[facility] Auto (RBC) [Mass/Vol]Ordered By: Katina Ordoñez on 41-09-3581UOQL (RBC) [Mass/Vol] 31.9 g/dL29.9-35.2FMercy Health St. Vincent Medical CenterMCV Auto (RBC) [Entitic vol] Ordered By: Katina Ordoñez on 91-43-6738TLW (RBC) [Entitic vol]101.5 fLHigh 81.0-99.0[facility]edoNo Panel InformationOrdered By: Katina Ordoñez on 956867-Ulyrgkk Vitamin D Total51.2 ng/mLRegency Hospital ToledoComment on above:<20 ng/mL Vit D jiyjexvil03-<30 ng/mL Vit D klnytpqbqjdc84-624 ng/mL Vit D sufficient>100 ng/mL Potential Toxicity Parathyroid Hormone (Intact)222 pg/eBNrpavpcz18-20DtinqdpqvRegency Hospital ToledoComment on above:Performed at: [facility] [id number] Director: Junaid Sawyer PhD, Phone: [phone] Phosphorus Level3.6 mg/dL2.6-4.7FMercy Health St. Vincent Medical CenterUrine Bacteria TRACE #/HPFAbnormalNONE [facility] CenterUrine Occult Blood NegativeNEGATIVERegency Hospital ToledoUrine Other CastsNONE SEEN #/LPFNONE [facility] CenterUrine Other CrystalsNone Seen #/HPFNone [facility] CampusUrine Random Szigivknmj797.50 mg/dL20.00-300.00[facility] Hospital ToledoUrine RBC0-2 #/HPF0-2FMercy Health St. Vincent Medical CenterUrine Squamous Epithelial CellsRARE #/LPFNONE/RARE [facility] ToledoUrine WBC0-2 #/HPFAbnormalNONE [facility] CenterPlatelet mean volume Auto (Bld) [Entitic vol]Ordered By: Katina Ordoñez on 90-76-6135Ygmombzr mean volume (Bld) [Entitic vol]9.6 fL9.5-13.5 [facility] ToledoPlatelets Auto (Bld) [#/Vol]Ordered By: Katina Ordoñez on 92-51-5310Womhpvcnt (Bld) [#/Vol]204 10 3/oB740-273FvcpxcgsgRegency Hospital ToledoRBC Auto (Bld) [#/Vol]Ordered By: Katina Ordoñez on 66-78-7595FOM (Bld) [#/Vol]3.99 10 6/uLLow4.20-5.40[facility]iance Hospitalerum or plasma anion gap determinationOrdered By: Katina Ordoñez on 79-58-2378Shsjf gap [Moles/Vol]16.2 mmol/LFMercy Health St. Vincent Medical CenterUrine protein/creatinine ratioOrdered By: Katina Ordoñez on 06-82-1171Festtfl/Creatinine (U) [Ratio]0.17 [facility] ToledoCreatinineon 55-56-7675Pngxvjikys Clr Calc Klkwdczp07.93[facility] Physician GroupComment on above:Order Comment: STAT FOR MRIResult Comment: PERFORMED BY: [facility] [address] [place] [address] PATHOLOGIST ROD POINTER LISA LOMBARDO M.D.Performed By: #### CREAT ####[address] [address] USAGFR/1.73 sq M.predicted MDRD (S/P/Bld) [Vol rate/Area]27.025 mL/min/{1.73_m2}NormalThe Critical Access Hospital Physician Group Comment on above:Order Comment: STAT FOR MRIPerformed By: #### CREAT ####[address] [address] [facility] Creatinine [Mass/volume] in Serum or PlasmaOrdered By: Tiana Brush on 08-01-2025 Creatinine [Mass/Vol]1.91 mg/dLHigh0.60-1.20[facility] Comment on above:Order Comment: STAT FOR MRIPerformed By: #### CREAT ####[place] [id number] [place] Glomerular filtration rate [Volume Rate/Area] in Serum, Plasma or Blood by CreatinineOrdered By: Tiana Brush on 00-56-9744Hljvfdwihn filtration rate [Volume Rate/Area] in Serum, Plasma or Blood by Kzuucjaxcn58.025 mL/MinRegency Hospital ToledoISTAT XRay CREon 55-97-2168XULOZ GFR27.197[facility] Physician GroupComment on above:Result Comment: PERFORMED BY: [place] [address] PATHOLOGIST ROD POINTER LISA LOMBARDO M.D.Performed By: #### ISCRE ####[facility] [address] [place] [id number] USAMR lumbar spine wo conon 78-51-9433YZ lumbar spine wo [facility] [place] [address] [place] [address] MRI Report Signed Patient: Cassi Rodrigez MR#: [id number] 8 : 1950 Acct:[id number] Age/Sex: 75 / F ADM Date: 08/01/25 Loc: Room: Type: [facility] Attending Dr: Tiana CHAMBERS Copies to: REYES [...] Simon M.D. 08/01/2025 3:20 PM Dictation Location: [place] [address] Transcribed By: TONO 08/01/25 9540 Dictated By: Arnel Simon II, MD 08/01/25 1505 Signed By: 08/01/25 1520[facility] Physician GroupMagnetic resonance imaging reportOrdered By: Arnel Simon on 10-34-2392Pfuzy reportMARIETTA MEMORIAL [facility] Main [place] [address] [place] [address] MRI Report Signed Patient: Cassi Rodrigez MR#: [id number] : 1950 Acct:[id number] Age/Sex: 75 / F ADM Date: Loc: MR Room: Type: [facility] Attending Dr: Tiana CHAMBERS Copies to: REYES [...] Simon M.D. 08/01/2025 3:20 PM Dictation Location: [place] [address] Transcribed By: [facility] 08/01/25 1520 Dictated By: Arnel Simon II, MD 08/01/25 1508 Signed By: 08/01/25 1520 [facility] Work Phone: no Panel InformationOrdered By: Tiana Brush on 83-89-6190Ruwcisd Estimated GFR (eGFR)27.197[facility] Creatinine Clearance (Chem25.93[facility] ToledoWhole blood creatinine measurementOrdered By: Tiana Brush on 65-94-7890Oefldqvikx [Mass/Vol]1.9 mg/dLHigh0.6-1.3FMercy Health St. Vincent Medical CenterComment on above: ER/ESD physician is notified/shown all ISTAT results.Critical values may be confirmed by laboratorytesting ifdeemed necessary by ER attending doctor.Result Comment: ER/ESD physician is notified/shown all ISTAT results. Critical values may be confirmed by laboratory testing if deemed necessary by ER attending doctor.Performed By: #### ISCRE ####[facility] [address] [place] [address] [facility] 66-89-8080CXLO Office Visit (NEADFV) CASSI RODRIGEZ ([id number]) 1950 F Date Time Provider Department 07/18/25 [...] Blanc RN Botox, 2 vials: Lot # [id number] Exp 09/2027 Lot # [id number] Exp 09/[address] Reilly [...] Injection Sites Muscle Fixed Site/Fixed Dose Bilat Yardage Control Operator Forming 20 U divided in 2 sites Procerus [...] Total Units wasted: 0 Randa Reilly MD [facility] Randa Reilly MD 07/18/2025 12:52 PM Signed PROGRESS NOTE- HEADACHE MEDICINE SERVICE DATE: July 18, 2025 Location: [facility] Participants: patient, and provider [...] or WENDY Randa Reilly MD [facility] Referring Provider: RANDA REILLY [[id number]] Allergies As of Date: 07/18/2025 Noted Allergy Reaction LYRICA (PREGABALIN) 08/24/2013 2 - Rash DEXAMETHASONE 10/03/2015 2 - Rash Date Reviewed: 07/18/2025 Reviewed by: Nola Naranjo MA - Fully Assessed Reason for (more content not included)...[facility] 76-90-3520ADMHXyhiii Visit (DENILSON) CASSI RODRIGEZ ([id number]) 1950 F Date Time Provider Department 05/21/25 8:00 AM ELIAN JONES During your visit today, we recorded the following information about you: Blood pressure Weight 123/60 87.3 kg Elian Jones DO 05/23/2025 2:36 PM Signed [facility] New Patient Evaluation Cassi [...] She was advised to follow up at [facility] for further evaluation of her memory [...] No Falls, Injuries, Ac (more content not included)...[facility] 94-38-9480OQICUefndj Visit (NEADFV) CASSI RODRIGEZ ([id number]) 1950 F Date Time Provider Department 04/10/25 11:30 AM RANDA REILLYFV During your visit today, we recorded the following information about you: Pulse Blood pressure Weight Height 86/minute 109/72 85.6 kg 1.575 m Randa Reilly MD 04/10/2025 12:19 PM Signed PROGRESS NOTE- HEADACHE MEDICINE SERVICE DATE: April 10, 2025 Location: [facility] Participants: patient, and provider [...] or WENDY Randa Reilly MD [facility] Lon Alexander RN 04/10/2025 12:19 PM Signed [...] Farfan RN Botox, 2 vials: Lot # [id number] Exp 08/2027 Lot # [id number] Exp 08/[address] Reilly to administer and verified order. Radna Reilly MD 04/10/2025 12:19 PM Signed BOTOX [...] Injection Sites Muscle Fixed Site/Fixed Dose Bilat Yardage Control Operator Forming 20 U divided in 2 sites Procerus [...] Total Units wasted: 0 Randa Reilly MD [facility] Referring Provider: RANDA REILLY [[id number]] Allergies As of Date: 04/10/2025 Noted Allergy [...] daily at bedtime. - (more content not included)...[facility] Memorial HospitalErythrocyte distribution width Auto (RBC) [Ratio]on 83-50-4637Pttausmwrms distribution width (RBC) [Ratio]Erythrocyte distribution width [Ratio] by Automated count11.0-15.0 [facility] Hospital ToledoEstimated glomerular filtration rate (GFR) non- Americanon 31-71-9515LJT/1.73 sq M.predicted among non-blacks MDRD (S/P/Bld) [Vol rate/Area]Estimated glomerular filtration rate (GFR) non- AmericanLow>=60 mL/min/1.73m 2FMercy Health St. Vincent Medical CenterHematocrit Auto (Bld) [Volume fraction]on 20-07-6533Ylxubqpten (Bld) [Volume fraction]Hematocrit [Volume Fraction] of Blood by Automated count36.0-48.0[facility] ToledoHemoglobin [Mass/volume] in Bloodon 77-85-2364Ouujohdeeb (Bld) [Mass/Vol] Hemoglobin [Mass/volume] in Blood12.0-16.0[facility] Hospital ToledoIron binding capacity [Mass/volume] in Serum or Plasmaon 16-46-8478Znsr binding capacity [Mass/Vol]Iron binding capacity [Mass/volume] in Serum or Plasma 250.0-450.0[facility] Hospital ToledoIron saturation [Mass Fraction] in Serum or Plasmaon 94-88-4105Thxs saturation [Mass fraction]Iron saturation [Mass Fraction] in Serum or PlasmaRegency Hospital ToledoLaboratory - Chemistry and Chemistry - challengeon 33-77-9293Shwivmc [Mass/Vol]3.3 g/dLLow 3.4-5.0[facility] ToledoCalcium [Mass/Vol]8.6 mg/dL8.5-10.1 [facility] ToledoChloride [Moles/Vol]107 mmol/U07-132OggzrkyttRegency Hospital ToledoCO2 [Moles/Vol]21.1 mmol/L21.0-32.0[facility] ToledoCreatinine [Mass/Vol]1.94 mg/dLHigh0.55-1.02[facility] ToledoFerritin [Mass/Vol]62.0 ng/mL8.0-252.0[facility] ToledoGFR/1.73 sq M.predicted MDRD (S/P/Bld) [Vol rate/Area]31 mL/min/{1.73_m2} Low>=60 mL/min/1.73m 2FMercy Health St. Vincent Medical CenterGlucose [Mass/Vol]117 mg/rBTfkn01-287UxqzqvjtcRegency Hospital ToledoIron [Mass/Vol]75.0 ug/dL 50.0-170.0[facility] ToledoMagnesium [Mass/Vol]2.0 mg/dL1.8-2.4 [facility] ToledoPotassium [Moles/Vol]4.6 mmol/L3.5-5.1FLutheran Hospitalodium [Moles/Vol]141 mmol/M464-982OnlursvjoRegency Hospital ToledoUrate [Mass/Vol]5.0 mg/dL2.6-6.0[facility] Urea nitrogen [Mass/Vol]27.0 mg/dLHigh7.0-18.0[facility] Urea nitrogen/Creatinine [Mass ratio]13.9 mg/mgRegency Hospital Toledo Laboratory - Urinalysison 83-46-9433Gebcmbj (U) [Mass/Vol]24.6 mg/dLHigh<=11.9 [facility] ToledoLeukocytes [#/volume] corrected for nucleated erythrocytes in Blood by Automated counon 07-99-9027SJV corrected for nucl RBC Auto (Bld) [#/Vol]Leukocytes [#/volume] corrected for nucleated erythrocytes in Blood by Automated coun4.0-11.0[facility] Hospital ToledoMCH Auto (RBC) [Entitic mass]on 76-96-8797UWN (RBC) [Entitic mass]MCH [Entitic mass] by Automated count26.7-34.0[facility] Hospital ToledoMCHC Auto (RBC) [Mass/Vol]on 07-53-2492JCRH (RBC) [Mass/Vol]MCHC [Mass/volume] by Automated count29.9-35.2FMercy Health St. Vincent Medical CenterMCV Auto (RBC) [Entitic vol]on 09-47-3425POE (RBC) [Entitic vol]MCV [Entitic volume] by Automated count 81.0-99.0[facility] Hospital ToledoNo Panel Informationon - Hydroxy Vitamin D Total36.0 ng/mLRegency Hospital ToledoComment on above:<20 ng/mL Vit D swjozksak53-<30 ng/mL Vit D adqcsfvflhhu14-816 ng/mL Vit D sufficient>100 ng/mL Potential ToxicityParathyroid Hormone (Intact)141 pg/mL Yyfibzvb70-20XeogkgaqxRegency Hospital ToledoComment on above:Performed at: [email or web address] [address] [id number] Director: Junaid Sawyer PhD, Phone: [phone] Level3.5 mg/dL2.6-4.7FMercy Health St. Vincent Medical CenterUrine Random Juupenmlsk040.82 mg/dL20.00-300.00[facility] ToledoPlatelet mean volume Auto (Bld) [Entitic vol]on 96-49-4695Qslxztmz mean volume (Bld) [Entitic vol]Platelet mean volume [Entitic volume] in Blood by Automated count9.5-13.5FMercy Health St. Vincent Medical Center Platelets Auto (Bld) [#/Vol]on 58-07-2239Rvxsjmyoc (Bld) [#/Vol]Platelets [#/volume] in Blood by Automated rbing468-909WhkunbhhfRegency Hospital Toledo RBC Auto (Bld) [#/Vol]on 07-62-1733QML (Bld) [#/Vol]Erythrocytes [#/volume] in Blood by Automated countLow4.20-5.40[facility] Hospitalerum or plasma anion gap determinationon 03-35-9799Zzovk gap [Moles/Vol]Serum or plasma anion gap determinationRegency Hospital ToledoUrine protein/creatinine ratioon 26-53-3419Mtaeztf/Creatinine (U) [Ratio]Urine protein/creatinine ratio [facility] ToledoCNOVon 06-10-5329ZNFPLbvint Visit (NEADFV) CASSI RODRIGEZ ([id number]) 1950 F Date Time Provider Department 01/05/25 12:00 PM SVITLANA MAYFIELD During your visit today, we recorded the following information about you: Pulse Blood pressure Weight Height 86/minute 127/61 86.7 kg 1.575 m Svitlana Mayfield APRN.COSTUMED CHARACTER 01/05/2025 12:15 PM Signed Follow-Up Onabotulinum Toxin [...] for migraine Informed Consent Consent Obtained: Written Hanson Protocol A moment to CARE was completed [...] applicable Written Consent Obtained: Written LOT #: [id number] Expiration Date: Month: Year: 2026 Second vial: LOT #: [id number] Expiration Date: Month: Year: 2026 Injection Sites Left (Units) Left (Sites) Right (Units) Right (Sites) TOTAL (Units) Yardage Control Operator Forming 5 1 5 1 10 Procerus Units: [...] chronic migraine pr (more content not included)...Normal [facility] 26-03-5576IWJQXmxuqe Visit (NEEPFV) CASSI RODRIGEZ ([id number]) 1950 F Date Time Provider Department 01/04/25 2:00 PM ALEJANDRO VILLAR NEEPFV During your visit today, we recorded the following information about you: Pulse Blood pressure Weight Height 86/minute 127/61 87 kg 1.575 m Alejandro Villar MD, PhD 01/04/2025 2:17 PM Signed [facility] Patient Name: Cassi Rodrigez Date of : 1950 ESTABLISHED EPILEPSY CLINIC NOTE 01/04/2025 2:00 PM Reason for Visit: Follow Up Clinical Summary: Ms. Rodrigez is a 74 year old right-handed female seen in [facility]. 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 Infections No Developmental Delay No Family history [...] abnormal data ALL BASIC (more content not included)...NormalLakeville HospitalAlanine aminotransferase [Enzymatic activity/volume] in Serum or Plasma Ordered By: Kristel Low on 80-97-4390SZW [Catalytic activity/Vol]Alanine aminotransferase [Enzymatic activity/volume] in Serum or Plasma7Regency Hospital ToledoAlbumin [Mass/volume] in Serum or Plasma by Bromocresol green (BCG) dye binding methoOrdered By: Kristel Low on 76-96-9682Yollbub BCG dye [Mass/Vol]Albumin [Mass/volume] in Serum or Plasma by Bromocresol green (BCG) dye binding metho3.5-5.7FMercy Health St. Vincent Medical CenterAlkaline phosphatase [Enzymatic activity/volume] in Serum or PlasmaOrdered By: Kristel Low on 79-89-1298NGX [Catalytic activity/Vol]Alkaline phosphatase [Enzymatic activity/volume] in Serum or DjepsvQskg26-928RxfcngvwfRegency Hospital Toledo Appearance of UrineOrdered By: Kristel Low on 07-88-1806Nhwdatbmea (U)Urine appearanceCleHolzer Medical Center – JacksonAspartate aminotransferase [Enzymatic activity/volume] in Serum or PlasmaOrdered By: Kristel Low on 99-68-3987NMP [Catalytic activity/Vol]Aspartate aminotransferase [Enzymatic activity/volume] in Serum or DjyorjCyq57-76McteklchlRegency Hospital Toledo Bacteria [Presence] in Urine by AutomatedOrdered By: Kristel Low on 17-20-3606Ttajisaj Auto Ql (U)Bacteria [Presence] in Urine by AutomatedNone Seen [facility] ToledoBasophils Auto (Bld) [#/Vol]Ordered By: Kristel Low on 66-18-6499Doxxmghbo (Bld) [#/Vol]Automated basophil count 0.0-0.2FMercy Health St. Vincent Medical CenterBasophils/100 WBC Auto (Bld)Ordered By: Kristel Low on 16-43-0757Djeyrkuel/100 WBC (Bld)Automated basophil %. [facility] Hospital ToledoBilirubin Test strip Ql (U)Ordered By: Kristel Low on 12-49-9093Gedrhgobl Ql (U)Bilirubin.total [Presence] in Urine by Test stripNegativeRegency Hospital ToledoBilirubin.total [Mass/volume] in Serum or PlasmaOrdered By: Kristel Low on 15-16-0139Clfpkgfkk [Mass/Vol] Bilirubin.total [Mass/volume] in Serum or Plasma0.3-1.0[facility] Hospital ToledoBlood Cultureon 14-22-8348Tfzjxjxj identified Cx Nom (Bld)NO GROWTH 5 DAYS PERFORMED BY: [facility] [address] [place] [address] PATHOLOGIST ROD POINTER LEON MA M.D.[facility] Physician GroupComment on above: Performed By: #### CMP, PT, PTT, CUBLD, LACTIC, LIPASE, CBC ####[facility] [address] [place] [address] USABacteria identified Cx Nom (Bld)NO GROWTH 5 DAYS PERFORMED BY: [facility] [address] [place] [address] PATHOLOGIST ROD POINTER LEON MA M.D.[facility] Physician GroupComment on above: Performed By: #### CMP, PT, PTT, CUBLD, LACTIC, LIPASE, CBC #### [facility] [address] [place] [address] USACT abdomen pelvis wo conon 34-33-0798IK abdomen pelvis wo [facility] [place] [address] [place] [address] CT Scan Report Signed Patient: Cassi Rodrigez MR#: [id number] 8 : 1950 Acct:[id number] Age/Sex: 74 / F ADM Date: 11/24/24 Loc: ER Room: Type: [facility] ER Attending Dr: Copies to: Kristel [...] Arnel Simon M.D.11/24/2024 3:48 PM Dictation Location: [place] [address] Transcribed By: [facility] 11/24/24 1548 Dictated By: Arnel Simon II, MD 11/24/24 1538 Signed By: 11/24/24 1548[facility] Physician GroupCalcium [Mass/volume] in Serum or PlasmaOrdered By: Kristel Low on 11-75-0305Omoiodk [Mass/Vol]Calcium [Mass/volume] in Serum or PlasmaLow8.6-10.3FMercy Health St. Vincent Medical Center Carbon dioxide, total [Moles/volume] in Serum or PlasmaOrdered By: Kristel Low on 91-61-6046RQ0 [Moles/Vol]Carbon dioxide, total [Moles/volume] in Serum or Ijwcqm82.0-31.0[facility] ToledoChloride [Moles/volume] in Serum or PlasmaOrdered By: Kristel Low on 25-87-3644Iuycapyr [Moles/Vol] Chloride [Moles/volume] in Serum or YvjuvqIpen81-297IqdqwmuhcRegency Hospital ToledoColor Auto (U)Ordered By: Kristel Low on 27-04-0191Hethc (U)Color of Urine by AutoYellowRegency Hospital ToledoComplete Blood Count Auto Diffon 31-68-3561Mhvajdqzd (Bld) [#/Vol]0.0 10*3/uLNormal0.0-0.2The [facility] Hospital Physician GroupComment on above:Result Comment: PERFORMED BY: [place] [address] PATHOLOGIST ROD POINTER LEON MA M.D.Performed By: #### CMP, PT, PTT, CUBLD, LACTIC, LIPASE, CBC #### [place] [address] USABasophils/100 WBC (Bld)0.5 %Normal.The [facility] Physician GroupComment on above:Performed By: #### CMP, PT, PTT, CUBLD, LACTIC, LIPASE, CBC #### [place] [address] USAEosinophils (Bld) [#/Vol]0.3 10*3/uLNormal0.0-0.45The [facility] Hospital Physician GroupComment on above:Performed By: #### CMP, PT, PTT, CUBLD, LACTIC, LIPASE, CBC #### [place] [address] USAEosinophils/100 WBC (Bld)5.9 %Normal.The [facility] Physician GroupComment on above:Performed By: #### CMP, PT, PTT, CUBLD, LACTIC, LIPASE, CBC #### [place] [address] USAErythrocyte distribution width (RBC) [Ratio]14.2 %Normal 11.9-15.3The [facility] Hospital Physician GroupComment on above:Performed By: #### CMP, PT, PTT, CUBLD, LACTIC, LIPASE, CBC #### [place] [address] USAHematocrit (Bld) [Volume fraction]28.7 %Low34.0-46.4The [facility] Hospital Physician GroupComment on above:Performed By: #### CMP, PT, PTT, CUBLD, LACTIC, LIPASE, CBC #### [place] [address] USAHemoglobin (Bld) [Mass/Vol]9.7 g/dLLow11.8-15.4The [facility] Hospital Physician GroupComment on above:Performed By: #### CMP, PT, PTT, CUBLD, LACTIC, LIPASE, CBC #### [place] [address] USALymphocytes (Bld) [#/Vol]0.7 10*3/uLLow1.00-4.8The [facility] Hospital Physician GroupComment on above:Performed By: #### CMP, PT, PTT, CUBLD, LACTIC, LIPASE, CBC #### [place] [address] USALymphocytes/100 WBC (Bld)13.8 %Normal.The [facility] Physician GroupComment on above:Performed By: #### CMP, PT, PTT, CUBLD, LACTIC, LIPASE, CBC #### [place] [address] USAH (RBC) [Entitic mass]32.2 fsHwkeyn79.7-34.3The [facility] Hospital Physician GroupComment on above:Performed By: #### CMP, PT, PTT, CUBLD, LACTIC, LIPASE, CBC #### [place] [address] USAV (RBC) [Entitic vol]95.4 uDFlxxzc03-066Ivw [facility] Physician GroupComment on above:Performed By: #### CMP, PT, PTT, CUBLD, LACTIC, LIPASE, CBC #### [place] [address] USAMean Corpuscular HGB Conc33.8 g/dNMfwsvj82.0-35.0The [facility] Hospital Physician GroupComment on above:Performed By: #### CMP, PT, PTT, CUBLD, LACTIC, LIPASE, CBC #### [place] [address] USAMonocytes (Bld) [#/Vol]0.4 10*3/uLNormal0.0-0.8The [facility] Hospital Physician GroupComment on above:Performed By: #### CMP, PT, PTT, CUBLD, LACTIC, LIPASE, CBC #### [place] [address] USAMonocytes/100 WBC (Bld)19.31 %Normal0.00-20.00The [facility] Hospital Physician GroupComment on above:Performed By: #### CMP, PT, PTT, CUBLD, LACTIC, LIPASE, CBC #### [place] [address] USAMonocytes/100 WBC (Bld)7.8 %Normal.The [facility] Hospital Physician GroupComment on above:Performed By: #### CMP, PT, PTT, CUBLD, LACTIC, LIPASE, CBC #### [place] [address] USANeutrophils (Bld) [#/Vol]3.7 10*3/uLNormal1.8-7.7The [facility] Hospital Physician GroupComment on above:Performed By: #### CMP, PT, PTT, CUBLD, LACTIC, LIPASE, CBC #### [place] [address] USANeutrophils/100 WBC (Bld)72.0 %Normal.The [facility] Hospital Physician GroupComment on above:Performed By: #### CMP, PT, PTT, CUBLD, LACTIC, LIPASE, CBC #### [place] [address] USANRBC%0.1 /100{WBC}Normal0-0.5The [facility] Comment on above:Performed By: #### CMP, PT, PTT, CUBLD, LACTIC, LIPASE, CBC #### [place] [address] USAPlatelet mean volume (Bld) [Entitic vol]7.2 fLNormal 6.3-10.7The [facility] Hospital Physician GroupComment on above:Performed By: #### CMP, PT, PTT, CUBLD, LACTIC, LIPASE, CBC #### [place] [address] USAPlatelets (Bld) [#/Vol]286 10*3/uDXddkah478-975Evv [facility] Physician GroupComment on above:Performed By: #### CMP, PT, PTT, CUBLD, LACTIC, LIPASE, CBC #### [place] [address] USARBC (Bld) [#/Vol]3.01 10*6/uLLow3.60-5.00The [facility] Hospital Physician GroupComment on above:Performed By: #### CMP, PT, PTT, CUBLD, LACTIC, LIPASE, CBC #### [place] [address] USAWBC (Bld) [#/Vol]5.1 10*3/uLNormal3.8-11.6The [facility] Hospital Physician GroupComment on above:Performed By: #### CMP, PT, PTT, CUBLD, LACTIC, LIPASE, CBC #### [place] [address] USAComprehensive Metabolic Panelon 39-36-1076Iuhdkwl [Mass/Vol]3.6 g/dLNormal3.5-5.7The [facility] Access Hospital Physician GroupComment on above: Performed By: #### CMP, PT, PTT, CUBLD, LACTIC, LIPASE, CBC #### [place] [address] USAAlbumin/Globulin [Mass ratio]1.4 {ratio}NormalThe Critical Access Hospital Physician GroupComment on above:Performed By: #### CMP, PT, PTT, CUBLD, LACTIC, LIPASE, CBC #### [place] [address] USAALP [Catalytic activity/Vol]174 U/WIpno33-503Hip [facility] Physician GroupComment on above:Performed By: #### CMP, PT, PTT, CUBLD, LACTIC, LIPASE, CBC #### [place] [address] USAALT [Catalytic activity/Vol]8 U/LNormal7-52The Critical Access Hospital Physician GroupComment on above:Performed By: #### CMP, PT, PTT, CUBLD, LACTIC, LIPASE, CBC #### [place] [address] USAAnion gap [Moles/Vol]9.7 mmol/LNormal6.0-15.0The [facility] Hospital Physician GroupComment on above:Performed By: #### CMP, PT, PTT, CUBLD, LACTIC, LIPASE, CBC #### [place] [address] USAAST [Catalytic activity/Vol]12 U/TWze24-32Bjs [facility] Physician GroupComment on above:Performed By: #### CMP, PT, PTT, CUBLD, LACTIC, LIPASE, CBC #### [place] [address] USABilirubin [Mass/Vol]0.7 mg/dLNormal0.3-1.0The [facility] Hospital Physician GroupComment on above:Performed By: #### CMP, PT, PTT, CUBLD, LACTIC, LIPASE, CBC #### [place] [address] USACalcium [Mass/Vol]8.5 mg/dLLow8.6-10.3The [facility] Hospital Physician GroupComment on above:Performed By: #### CMP, PT, PTT, CUBLD, LACTIC, LIPASE, CBC #### [place] [address] USAChloride [Moles/Vol]111 mmol/PHocd94-137Uye [facility] Physician GroupComment on above:Performed By: #### CMP, PT, PTT, CUBLD, LACTIC, LIPASE, CBC #### [place] [address] USACO2 [Moles/Vol]23.6 mmol/UWfvrjw83.0-31.0The [facility] Access Hospital Physician GroupComment on above:Performed By: #### CMP, PT, PTT, CUBLD, LACTIC, LIPASE, CBC #### [place] [address] USACreatinine [Mass/Vol]1.66 mg/dLHigh0.60-1.20The [facility] Access Hospital Physician GroupComment on above:Performed By: #### CMP, PT, PTT, CUBLD, LACTIC, LIPASE, CBC #### [place] [address] USACreatinine Clr Calc Izdyxnan38.82NoNovant Health Kernersville [facility] Physician GroupComment on above:Performed By: #### CMP, PT, PTT, CUBLD, LACTIC, LIPASE, CBC #### [place] [address] USAEstimated GFR32.179 mL/MinNoNovant Health Kernersville [facility] Physician [facility] Of GreenvilleComment on above:Performed By: #### CMP, PT, PTT, CUBLD, LACTIC, LIPASE, CBC #### [place] [address] USAGlobulin (S) [Mass/Vol]2.6 g/dLNoNovant Health Kernersville [facility] Physician [facility] Of GreenvilleComment on above:Performed By: #### CMP, PT, PTT, CUBLD, LACTIC, LIPASE, CBC #### [place] [address] USAGlucose [Mass/Vol]99 mg/tHSlaxvi88-352Awk [facility] Physician GroupComment on above:Result Comment: Random Glucose Reference Range is dependent on time and content of last meal. Glucose of more than 200 mg/dL in a nonstressed, ambulatory subject supports the diagnosis of Diabetes Mellitus. ADA recommended reference rangePerformed By: #### CMP, PT, PTT, CUBLD, LACTIC, LIPASE, CBC #### [place] [address] USAPotassium [Moles/Vol]4.3 mmol/LNormal3.5-5.1The [facility] Hospital Physician GroupComment on above:Performed By: #### CMP, PT, PTT, CUBLD, LACTIC, LIPASE, CBC #### [facility] [address] [place] [address] USAProtein [Mass/Vol]6.2 g/dLLow6.4-8.9The [facility] Hospital Physician GroupComment on above:Performed By: #### CMP, PT, PTT, CUBLD, LACTIC, LIPASE, CBC #### [facility] [address] [place] [address] USASodium [Moles/Vol]140 mmol/AYyqcfl767-022Sbz [facility] Hospital Physician GroupComment on above:Performed By: #### CMP, PT, PTT, CUBLD, LACTIC, LIPASE, CBC #### [facility] [address] [place] [address] USAUrea nitrogen [Mass/Vol]24 mg/dLNormal7-25The [facility] Hospital Physician GroupComment on above:Performed By: #### CMP, PT, PTT, CUBLD, LACTIC, LIPASE, CBC #### [place] [address] USACreatinine [Mass/volume] in Serum or PlasmaOrdered By: Kristel Low on 52-25-3721Epfosnchrd [Mass/Vol]Creatinine [Mass/volume] in Serum or PlasmaHigh0.60-1.20[facility]ency Hospital ToledoDipstick and Microscopicon 03-95-5233Bybbqdypol (U)ClearNormalClearThe Critical Access Hospital Physician GroupComment on above:Order Comment: Name Collection Type:: Clean-Voided MidstreamPerformed By: #### ADDONUAPLUS #### [place] [address] USABacteria,UrineNone SeenNormalNone SeenAdventhealth For Women Physician GroupComment on above:Order Comment: Name Collection Type:: Clean- Voided MidstreamPerformed By: #### ADDONUAPLUS #### [place] [address] USABilirubin,UrineNegativeNormalNegativeThe Critical Access Hospital Physician GroupComment on above:Order Comment: Name Collection Type:: Clean- Voided MidstreamPerformed By: #### ADDONUAPLUS #### [facility] [address] [place], [place] [id number] USAColor (U)Light-YellowNormalYellowAdventhealth For Women Physician GroupComment on above:Order Comment: Name Collection Type:: Clean-Voided MidstreamPerformed By: #### ADDONUAPLUS #### [place] [id number] USAGlucose Ql (U)NormalNormalNormalThe Critical Access Hospital Physician GroupComment on above:Order Comment: Name Collection Type:: Clean-Voided MidstreamPerformed By: #### ADDONUAPLUS #### [place] [address] USAHyaline Casts,Urine0 [LPF]Normal0-8The [facility] Access Hospital Physician GroupComment on above:Order Comment: Name Collection Type:: Clean-Voided MidstreamPerformed By: #### ADDONUAPLUS #### [place] [address] USAKetones Ql (U)NegativeNormalNegativeAdventhealth For Women Physician GroupComment on above:Order Comment: Name Collection Type:: Clean- Voided MidstreamPerformed By: #### ADDONUAPLUS #### [place] [address] USALeukocyte esterase Test strip Ql (U)1+HighNegativeThe Critical Access Hospital Physician GroupComment on above:Order Comment: Name Collection Type:: Clean-Voided MidstreamPerformed By: #### ADDONUAPLUS #### [place] [address] USAMucus,UrineRareNormalThe Critical Access Hospital Physician GroupComment on above:Order Comment: Name Collection Type:: Clean-Voided MidstreamResult Comment: PERFORMED BY: [place] [address] PATHOLOGIST ROD POINTER LEON MA M.D.Performed By: #### ADDONUAPLUS #### [place] [address] USANitrite,UrineNegativeNormalNegativeAdventhealth For Women Physician GroupComment on above:Order Comment: Name Collection Type:: Clean-Voided MidstreamPerformed By: #### ADDONUAPLUS #### [place] [address] USAOccult Blood,UrineNegativeNormalNegativeThe Critical Access Hospital Physician GroupComment on above:Order Comment: Name Collection Type:: Clean- Voided MidstreamResult Comment: PERFORMED BY: [place] [address] PATHOLOGIST ROD POINTER LEON MA M.D.Performed By: #### ADDONUAPLUS #### [place] [address] USApH (U)5.5 [pH]Normal5.0-9.0The [facility] Comment on above:Order Comment: Name Collection Type:: Clean-Voided Midstream Performed By: #### ADDONUAPLUS #### [place] [address] USAProtein,UrineNegativeNormalNegativeThe Critical Access Hospital Physician GroupComment on above:Order Comment: Name Collection Type:: Clean-Voided MidstreamPerformed By: #### ADDONUAPLUS #### [place] [address] USARBC,Urine1 [HPF]Normal0-4The [facility]ician Group Comment on above:Order Comment: Name Collection Type:: Clean-Voided Midstream Performed By: #### ADDONUAPLUS #### [place] [address] USASpecificy Moscow,Urine1.091Yylspz6.001-1.030The [facility] Access Hospital Physician GroupComment on above:Order Comment: Name Collection Type:: Clean- Voided MidstreamPerformed By: #### ADDONUAPLUS #### [place] [address] USASquamous Epithelial Cell,Urine3 [HPF]High0-2The [facility] Access Hospital Physician GroupComment on above:Order Comment: Name Collection Type:: Clean- Voided MidstreamPerformed By: #### ADDONUAPLUS #### [facility] [address] [place] [address] USAUrobilinogen,UrineNormalNormalNormalThe Critical Access Hospital Physician GroupComment on above:Order Comment: Name Collection Type:: Clean- Voided MidstreamPerformed By: #### ADDONUAPLUS #### [facility] [address] [place] [address] USAWBC,Urine1 [HPF]Normal0-4The [facility] Comment on above:Order Comment: Name Collection Type:: Clean-Voided Midstream Performed By: #### ADDONUAPLUS #### [facility] [address] [place] [address] USAEosinophils Auto (Bld) [#/Vol]Ordered By: Kristel Low on 41-72-4105Zgqoqlnnlba (Bld) [#/Vol]Automated eosinophil count0.0-0.45 [facility] ToledoEosinophils/100 WBC Auto (Bld)Ordered By: Kristel Low on 34-06-9104Mdkamgpohnw/100 WBC (Bld)Automated eosinophil %. [facility] ToledoEpithelial cells.squamous [#/area] in Urine sediment by Automated countOrdered By: Kristel Low on 75-89-6503Lyjtardmyw cells.squamous Auto (Urine sed) [#/Area]Epithelial cells.squamous [#/area] in Urine sediment by Automated countHigh0-2FMercy Health St. [facility] Center Erythrocyte distribution width Auto (RBC) [Ratio]Ordered By: Kristel Low on 90-90-8733Mznvoatlsql distribution width (RBC) [Ratio]Erythrocyte distribution width [Ratio] by Automated count11.9-15.3FMercy Health St. [facility] Center Erythrocytes [#/area] in Urine sediment by Automated countOrdered By: Kristel Low on 98-62-9323AQA Auto (Urine sed) [#/Area]Erythrocytes [#/area] in Urine sediment by Automated count0-4FMercy Health St. Vincent Medical CenterGlobulin Calc (S) [Mass/Vol]Ordered By: Kristel Low on 29-89-3444Cljdxmhf (S) [Mass/Vol]Serum globulin measurement by calculation (mass/volume)[facility] ToledoGlucose [Mass/volume] in Serum or PlasmaOrdered By: Kristel Low on 58-15-9945Gqsdckk [Mass/Vol]Glucose [Mass/volume] in Serum or Vfqiki44-829 [facility] Hospital ToledoComment on above:ADA recommended reference rangeRandom Glucose Reference Range is dependent on time and content of last meal. Glucose of more than 200 mg/dL in a nonstressed, ambulatory subject supports the diagnosisof Diabetes Mellitus.Glucose [Mass/volume] in Urine by Test stripOrdered By: Kristel Low on 14-39-6122Harmnai Test strip (U) [Mass/Vol]Glucose [Mass/volume] in Urine by Test stripNormalRegency Hospital ToledoHematocrit Auto (Bld) [Volume fraction]Ordered By: Kristel Low on 44-87-1451Puxrqmfhaq (Bld) [Volume fraction]Hematocrit [Volume Fraction] of Blood by Automated rokxpNdi45.0-46.4FMercy Health St. Vincent Medical CenterHemoglobin Test strip Ql (U)Ordered By: Kristel Low on 43-59-0170Kxducsreei Ql (U) Hemoglobin [Presence] in Urine by Test stripNegativeRegency Hospital ToledoHemoglobin [Mass/volume] in BloodOrdered By: Kristel Low on 11-24-2024 Hemoglobin (Bld) [Mass/Vol]Hemoglobin [Mass/volume] in HgfkzUki51.8-15.4 [facility] ToledoHyaline casts [#/area] in Urine sediment by Automated countOrdered By: Kristel Low on 35-49-2132Uqqrhvy casts Auto (Urine sed) [#/Area]Hyaline casts [#/area] in Urine sediment by Automated count 0-8[facility] ToledoINR in Platelet poor plasma by Coagulation assayOrdered By: Kristel Low on 49-36-7961CEX Coag (PPP) [Relative time]INR in Platelet poor plasma by Coagulation assayRegency Hospital Toledo Comment on above:INR Therapeutic Range A) Pre- [...] strip Ql (U)Ordered By: Kristel Low on 33-07-7574Uorflvz Ql (U)Ketones [Presence] in Urine by Test stripNegative [facility] ToledoLaboratory - Microbiology and Antimicrobial susceptibilityOrdered By: Kristel Low on 56-67-4193Fedkaima identified Cx Nom (Bld)NO GROWTH 5 DAYSRegency Hospital ToledoBacteria identified Cx Nom (Bld)NO GROWTH 5 DAYSRegency Hospital ToledoBacteria identified Cx Nom (Bld)NO GROWTH 5 DAYSRegency Hospital ToledoBacteria identified Cx Nom (Bld)NO GROWTH 5 DAYSRegency Hospital ToledoLactate [Moles/volume] in Serum or PlasmaOrdered By: Kristel Low on 11-24-2024 Lactate [Moles/Vol]Lactate [Moles/volume] in Serum or Plasma0.5-2.2FMercy Health St. Vincent Medical CenterLactic Acidon 57-60-9566Jvbwylm [Moles/Vol]0.8 mmol/L Normal0.5-2.2The [facility] Access Hospital Physician GroupComment on above:Result Comment: PERFORMED BY: [facility] [address] [place] [address] PATHOLOGIST ROD POINTER LEON MA M.D.Performed By: #### CMP, PT, PTT, CUBLD, LACTIC, LIPASE, CBC #### [facility] [address] [place] [address] USALeukocyte esterase [Presence] in Urine by Test strip Ordered By: Kristel Low on 90-43-2237Fwxjshtde esterase Test strip Ql (U) Leukocyte esterase [Presence] in Urine by Test stripHighNegativeRegency Hospital ToledoLeukocytes [#/area] in Urine sediment by Automated count Ordered By: Kristel Low on 80-08-8887PLN Auto (Urine sed) [#/Area]Leukocytes [#/area] in Urine sediment by Automated count0-4FMercy Health St. Vincent Medical CenterLeukocytes [#/volume] corrected for nucleated erythrocytes in Blood by Automated counOrdered By: Kristel Low on 20-10-1460EMZ corrected for nucl RBC Auto (Bld) [#/Vol]Leukocytes [#/volume] corrected for nucleated erythrocytes in Blood by Automated coun3.8-11.6FMercy Health St. Vincent Medical CenterLipaseon 86-66-9061Jklfio [Catalytic activity/Vol]10.0 U/LLow11.0-82.0The [facility] Access Hospital Physician GroupComment on above:Result Comment: PERFORMED BY: [facility] [address] [place] [address] PATHOLOGIST ROD POINTER LEON MA M.D.Performed By: #### CMP, PT, PTT, CUBLD, LACTIC, LIPASE, CBC #### [facility] [address] [place] [address] USALipase [Enzymatic activity/volume] in Serum or Plasma Ordered By: Kristel Low on 82-90-9742Pkbbjo [Catalytic activity/Vol]Lipase [Enzymatic activity/volume] in Serum or MviaztJyn53.0-82.0[facility] Hospital ToledoLymphocytes Auto (Bld) [#/Vol]Ordered By: Kristel Low on 16-99-3706Mfyyneeihxb (Bld) [#/Vol]Lymphocytes [#/volume] in Blood by Automated countLow1.00-4.8[facility] ToledoLymphocytes/100 WBC Auto (Bld) Ordered By: Kristel Low on 58-26-7513Vbjbyuhkvcw/100 WBC (Bld) Lymphocytes/100 leukocytes in Blood by Automated count.[facility] Auto (RBC) [Entitic mass]Ordered By: Kristel Low on 62-13-6290RPM (RBC) [Entitic mass]MCH [Entitic mass] by Automated count24.7-34.3 [facility] HospitalHC Auto (RBC) [Mass/Vol]Ordered By: Kristel Low on 14-61-9252RRYT (RBC) [Mass/Vol]MCHC [Mass/volume] by Automated count 32.0-35.0[facility] HospitalV Auto (RBC) [Entitic vol]Ordered By: Kristel Low on 37-97-9100FUU (RBC) [Entitic vol]MCV [Entitic volume] by Automated ktwyy90-860XfpsfsujdRegency Hospital ToledoMonocyte distribution width [Entitic volume] in Blood by AutomatedOrdered By: Kristel Low on 64-60-2652Gtrnivmx distribution width Auto (Bld) [Entitic vol]Monocyte distribution width [Entitic volume] in Blood by Automated0.00-20.00[facility] Hospital ToledoMonocytes Auto (Bld) [#/Vol]Ordered By: Kristel Low on 21-62-0327Powztoflq (Bld) [#/Vol]Automated blood monocyte count0.0-0.8 [facility] ToledoMonocytes/100 WBC Auto (Bld)Ordered By: Kristel Low on 11-06-2541Vrjbarnnn/100 WBC (Bld)Automated monocyte %. [facility] ToledoMucus [Presence] in Urine by AutomatedOrdered By: Kristel Low on 93-29-2753Bsagf Auto Ql (U)Mucus [Presence] in Urine by AutomatedRegency Hospital ToledoNeutrophils Auto (Bld) [#/Vol]Ordered By: Kristel Low on 44-00-5854Ckhybssmbon (Bld) [#/Vol]Neutrophils [#/volume] in Blood by Automated count1.8-7.7FMercy Health St. [facility] Center Neutrophils/100 WBC Auto (Bld)Ordered By: Kristel Low on 11-24-2024 Neutrophils/100 WBC (Bld)Automated neutrophil %.Reg[facility] Hospital ToledoNitrite Test strip Ql (U)Ordered By: Kristel Low on 15-13-2450Xitryui Ql (U)Nitrite [Presence] in Urine by Test stripNegativeRegency Hospital ToledoNo Panel InformationOrdered By: Kristel Low on 11-24-2024 Estimated GFR (CKD-EPI)32.179 mL/MinRegency Hospital ToledoPharmacy Creatinine Clearance (Chem30.82[facility] ToledoNucleated erythrocytes [Presence] in Blood by Automated countOrdered By: Kristel Low on 61-94-9283Ccngvryff RBC Auto Ql (Bld)Nucleated erythrocytes [Presence] in Blood by Automated count0-0.5FMercy Health St. Vincent Medical CenterPartial Thromboplastin Timeon 12-22-5945yDZR Coag (Bld) [Time]33.5 xYgbtpi51.1-36.5The [facility] Access Hospital Physician GroupComment on above:Result Comment: A hematocrit value greater than 55% may lead to inaccurate results in coagulation testing. Patients having hematocrit values >55% require a special collection tube for coagulation studies. Please contact the laboratory at [phone] for redraw instructions. PERFORMED BY: [place] [address] PATHOLOGIST ROD POINTER LEON MA M.D.Performed By: #### CMP, PT, PTT, CUBLD, LACTIC, LIPASE, CBC #### [place] [address] USAPlatelet mean volume Auto (Bld) [Entitic vol]Ordered By: Kristel Low on 22-57-0298Dvmsxvmx mean volume (Bld) [Entitic vol]Platelet mean volume [Entitic volume] in Blood by Automated count6.3-10.7FMercy Health St. Vincent Medical CenterPlatelets Auto (Bld) [#/Vol]Ordered By: Kristel Low on 00-91-8719Ultpmzgkg (Bld) [#/Vol]Platelets [#/volume] in Blood by Automated hejkc075-964RmsdxoidwRegency Hospital ToledoPotassium [Moles/volume] in Serum or PlasmaOrdered By: Kristel Low on 48-62-8297Suqqpbfwb [Moles/Vol]Potassium [Moles/volume] in Serum or Plasma3.5-5.1FMercy Health St. [facility] Center Protein Test strip (U) [Mass/Vol]Ordered By: Kristel Low on 11-24-2024 Protein (U) [Mass/Vol]Protein [Mass/volume] in Urine by Test stripNegative [facility] ToledoProtein [Mass/volume] in Serum or PlasmaOrdered By: Kristel Low on 58-71-8082Iprwqko [Mass/Vol]Protein [Mass/volume] in Serum or PlasmaLow6.4-8.9[facility] Hospital ToledoProthrombin Time INRon 19-77-2718EIY Coag (PPP) [Relative time]2.0 {INR}NormalThe Critical Access Hospital Physician GroupComment on above:Result Comment: INR Therapeutic [...] PT, PTT, CUBLD, LACTIC, LIPASE, CBC #### [facility] [address] [place] [address] USAPT Coag (PPP) [Time]22.8 sHigh9.0-12.9The Critical Access Hospital Physician GroupComment on above:Result Comment: A hematocrit value greater than 55% may lead to inaccurate results in coagulation testing. Patients having hematocrit values >55% require a special collection tube for coagulation studies. Please contact the laboratory at [phone] for redraw instructions.Performed By: #### CMP, PT, PTT, CUBLD, LACTIC, LIPASE, CBC #### [facility] [address] [place] [address] USAProthrombin time (PT)Ordered By: Kristel Low on 53-77-3343VE Coag (PPP) [Time]Prothrombin time (PT)High9.0-12.9[facility] Hospital ToledoComment on above:A hematocrit value greater than 55% may lead to inaccurate results in coagulation testing. Patientshaving hematocrit values >55% require a special collection tube for coagulation studies. Please c ontact the laboratory at [phone] for redraw instructions.RBC Auto (Bld) [#/Vol]Ordered By: Kristel Low on 42-34-7676ZVF (Bld) [#/Vol]Erythrocytes [#/volume] in Blood by Automated countLow3.60-5.00[facility]iance Hospitalerum or plasma albumin/globulin mass ratioOrdered By: Kristel Low on 17-60-7065Tvntybr/Globulin [Mass ratio]Serum or plasma albumin/globulin mass ratioMercy Health Defiance Hospitalerum or plasma anion gap determination Ordered By: Kristel Low on 96-31-7524Ivixg gap [Moles/Vol]Serum or plasma anion gap determination6.0-15.0[facility]iance Hospitalodium [Moles/volume] in Serum or PlasmaOrdered By: Kristel Low on 35-39-7082Dfbaee [Moles/Vol]Sodium [Moles/volume] in Serum or Ltqyfx900-526MymejagprMercy Health Defiance Hospitalpecific gravity Test strip (U) [Rel density]Ordered By: Kristel Low on 23-93-1009Fgshbmxa gravity (U) [Rel density]Specific gravity of Urine by Test strip1.001-1.030[facility] Hospital ToledoUrea nitrogen [Mass/volume] in Serum or PlasmaOrdered By: Kristel Low on 23-84-4516Wvar nitrogen [Mass/Vol]Urea nitrogen [Mass/volume] in Serum or Plasma7-25[facility] Hospital ToledoUrobilinogen Test strip (U) [Mass/Vol]Ordered By: Kristel Low on 24-78-8420Zfsbawldbnjg (U) [Mass/Vol]Urobilinogen [Mass/volume] in Urine by Test stripNormalRegency Hospital ToledoWBC Auto (Bld) [#/Vol]Ordered By: Kristel Low on 30-93-2270UZD (Bld) [#/Vol] Leukocytes [#/volume] in Blood by Automated count3.8-11.6FMercy Health St. Vincent Medical CenteraPTT in Platelet poor plasma by Coagulation assayOrdered By: Kristel Low 98-86-2046mIRZ Coag (PPP) [Time]Activated partial thromboplastin time (aPTT) in platelet poor plasma by coagulation a25.1-36.5 [facility] Hospital ToledoComment on above:A hematocrit value greater than 55% may lead to inaccurate results in coagulation testing. Patientshaving hematocrit values >55% require a special collection tube for coagulation studies. Please contact the laboratory at [phone] for redraw instructions. pH Test strip (U)Ordered By: Kristel Low on 30-30-3593fN (U)pH of Urine by Test strip5.0-9.0[facility] Hospital ToledoIonized Calciumon 11-06-2024 Calcium.ionized ISE [Mass/Vol]4.5 mg/dLInvalid Interpretation Code4.5-5.6[facility] And HospitalComment on above:Result Comment: Performed at: [facility] [address] [place], [place] [id number] PhD Digna QuirogaPerformed By: #### [id number] #### [facility] [address] [place], [place] [address]Rrvs OR Intraoperative Recordon 58-29-5561Ueft OR Intraoperative RecordMain OR Intraoperative Record IntraOp Document Type FT Summary Primary Physician: Shashi De Souza MD Finalized Date/Time: 11/06/24 08:14:44 Pt. Name: JACECASSI./Sex: 1950 Female Med Rec #: [id number] Physician: Shashi De Souza MD Financial #: [id number] Pt. Type: O Room/Bed: N303/01 Admit/Disch: 11/02/24 [...] Role Performed CARLOS ALBERTO Surgeon - Primary Um Nurse - Primary Time In 11/02/24 14:07:00 11/02/24 14:07:00 11/02/24 14:07:00 Time Out 11/02/24 15:48:00 11/02/24 15:48:00 11/02/24 15:48:00 Procedure LUMBAR LAMINECTOMY LUMBAR LAMINECTOMY LUMBAR LAMINECTOMY POSS. FUSION(.) POSS. FUSION(.) POSS. FUSION(.) Comments IS SUPERVISING Last Modified By: Renetta Melendez Kelsie E Burgderfer, Kelsie Aldair 11/02/24 15:51:39 11/02/24 15:51:39 11/02/24 15:51:39 Entry 4 Entry 5 Entry 6 Case Attendee Home Priest, Katy Eastman Role Performed Scrub - Primary INFORMATION SYSTEMS AUDIT MANAGER Clinical Resource Coordinator Time In 11/02/24 14:07:00 11/02/24 14:07:00 11/02/24 14:07:00 Time Out 11/02/24 15:48:00 11/02/24 15:48:00 11/02/24 15:48:00 Procedure LUMBAR LAMINECTOMY LUMBAR LAMINECTOMY LUMBAR LAMINECTOMY POSS. FUSION(.) POSS. FUSION(.) POSS. FUSION(.) Comments Last Modified By: Renetta Melendez Kelsie E Burgderfer, Kelsie Aldair 11/02/24 15:51:39 11/02/24 15:51:39 11/02/24 15:51:39 Entry 7 Entry 8 Case Attendee Jin Presley Ii, Robert David Role Performed Staff - Other Anesthesiologist Stem Shaper Time In 11/02/24 14:07:00 11/02/24 14:53:00 Time [...] Outcomes Met? Yes sciati (more content not included)...[facility]tering [facility] DaytonBMPon 26-26-0990Ddmsv gap [Moles/Vol]8 mmol/LNormal6-16[facility] Comment on above:Performed By: #### [id number] #### [facility] [address], [place] [address]Vqaitts [Mass/Vol]8.0 mg/dLLow8.9-11.1FACMC Healthcare System GlenbeighComment on above:Performed By: #### [id number] #### [facility] [address], [place] [address]Rfyetzqo [Moles/Vol]110 mmol/RAgwbxn671-563CfkodjMckitrick HospitalComment on above:Performed By: #### [id number] #### [facility] [address] [place], [place] [address]LC1 [Moles/Vol]24 mmol/HTeobfe93-36OkolokMckitrick Hospital Comment on above:Performed By: #### [id number] #### [facility] [address], [place] [address]Umdyvfusep [Mass/Vol]1.6 mg/dLHigh0.5-1.3FACMC Healthcare System GlenbeighComment on above:Performed By: #### [id number] #### [facility] [address], [place] [address]Bnvupke [Mass/Vol]106 mg/cVJkmsqn01-907TioaxxMckitrick HospitalComment on above:Performed By: #### [id number] #### [facility] [address], [place] [address]Uuddclzdz [Moles/Vol]4.1 mmol/LNormal3.5-5.3FACMC Healthcare System GlenbeighComment on above:Performed By: #### [id number] #### [facility] [address], [place] [address]Piconk [Moles/Vol]138 mmol/UKoqjrr085-426GcrtekMckitrick HospitalComment on above:Performed By: #### [id number] #### [facility] [address], [place] [address]Ejvm nitrogen [Mass/Vol]20 mg/dLNormal5-21[facility]rick HospitalComment on above:Performed By: #### [id number] #### [facility] [address], [place] [address]Uwnd nitrogen/Creatinine [Mass ratio]12 No MaekdMrrede67-49 [facility] HospitalComment on above:Performed By: #### [id number] #### [facility] [address] [place] [address]DKB w/Indiceson 05-03-4638Mvqrzhyamxw distribution width (RBC) [Ratio]14.4 %High10.9-14.2FACMC Healthcare System GlenbeighComment on above:Performed By: #### [id number] #### [facility] [address] [place] [address]Imtjlesqmu (Bld) [Volume fraction]35.4 %Yeylgk98.0-46.0[facility] HospitalComment on above:Performed By: #### [id number] #### [facility] [address] [place] [address]Suajpwxque (Bld) [Mass/Vol]11.9 g/dLLow12.0-16.0[facility] HospitalComment on above:Performed By: #### [id number] #### [facility] [address] [place] [address]YSG (RBC) [Entitic mass]31.9 rrQdjnmv58.0-34.0[facility] HospitalComment on above:Performed By: #### [id number] #### [facility] [address] [place] [address]VORT (RBC) [Mass/Vol]33.7 g/hMAhbkfv40.4-36.0[facility] HospitalComment on above:Performed By: #### [id number] #### [facility] [address] [place] [address]SKY (RBC) [Entitic vol]94.5 mYYckylb62.0-100.0[facility] HospitalComment on above:Performed By: #### [id number] #### [facility] [address], [place] [address]Queqntbv mean volume (Bld) [Entitic vol]7.4 fLNormal6.4-10.8 [facility] HospitalComment on above:Performed By: #### [id number] #### [facility] [address], [place] [address]Doftaoizn (Bld) [#/Vol]183.0 E9/PWpbdhy692.0-500.0M[facility]rick HospitalComment on above:Performed By: #### [id number] #### [facility] Laboratory [address] [place] [address] 18539SPV (Bld) [#/Vol]3.7 E12/LLow4.3-5.9[facility] Comment on above:Performed By: #### [id number] #### [facility] [address] [place] [address] 20087ZGT size Nom (Bld)NORMALInvalid Interpretation CodeMckitrick HospitalComment on above:Performed By: #### [id number] #### [facility] [address] [place] [address] 34125TJG corrected for nucl RBC Auto (Bld) [#/Vol]5.4 E9/LNormal 4.0-11.0[facility] HospitalComment on above:Performed By: #### [id number] #### [facility] [address] [place] [address] 63628KZYYRISJUVgeruto By: SYSTEM SYSTEM on 53-72-0413Lvsda gap [Moles/Vol]8 mmol/LNormal6 - 16 mEq/LRemisol ChemCalcium [Mass/Vol]8.0 mg/dLLow 8.9 - 11.1 mg/dLRemisol ChemChloride [Moles/Vol]110 mmol/HYwzion827 - 111 mmol/L Remisol ChemCO2 [Moles/Vol]24 mmol/ZWrrtud14 - 31 mmol/LRemisol ChemCreatinine [Mass/Vol]1.6 mg/dLHigh0.5 - 1.3 mg/dLRemisol VaaxbKWH45 mL/min/1.73 m2Low >=59mL/min/1.73 w5Rkxmgqh ChemGlucose [Mass/Vol]106 mg/cQHdwyrt02 - 199 mg/dL Remisol ChemMagnesium [Mass/Vol]1.8 mg/dLNormal1.3 - 2.4 mg/dLRemisol Chem Phosphate [Mass/Vol]3.1 mg/dLNormal1.9 - 4.6 mg/dLRemisol ChemPotassium [Moles/Vol]4.1 mmol/LNormal3.5 - 5.3 mmol/LRemisol ChemSodium [Moles/Vol]138 mmol/QQejajf813 - 145 mmol/LRemisol ChemUrea nitrogen [Mass/Vol]20 mg/dLNormal5 - 21 mg/dLRemisol ChemUrea nitrogen/Creatinine [Mass ratio]12 mg/yhInifud64 - 20 Remisol ChemDischarge Note-Nursingon 97-17-7440Gublwpomw Note-NursingDischarge Note-Nursing CASSI RODRIGEZ :1950 Visit Date:11/02/2024 [...] time unless symptoms worsen. Where: [address] [place] [address]- Business (1) Follow Up with Shashi De Souza When: Comments: f/u3wks ok shower and remove dressing qqqoo46cep no lift>5lbs keep incis dry clean. restart coumadin 3 days after surgery. 11-05-24Wednesday. Where: [id number] [facility], [address] [place] [phone] Business (1) Medications What How Much When Why Instructions Next Dose New acetaminophen-oxycodone (Percocet 5 mg-325 mg oral tablet) 1 Tablets By Mouth 3 times a day as needed for Pain 4-7 Lumbar stenosis Duration: 7 Days Pickup at [facility]/pharmacy #[id number] as needed for pain Changed warfarin (warfarin [...] 40 Milligram By Mouth Every day 11/04 9am Unchanged venlafaxine 150 Milligram By Mouth Every day 11/04 @ 9am Unchanged zonisamide (Zonegran) 300 Milligram By Mouth Once a day (at bedtime) 11/03 @ 9pm Pharmacy Information [facility]/pharmacy #[id number]: [address], [place] [phone] Test Results CBC BMP WBC: 5.4 E9/L [...] dexAMETHasone (Rash) Education Materials (more content not included)...NormalMckitrick HospitalHEMATOLOGYOrdered By: SYSTEM SYSTEM on 05-31-3423Vgifgkmpjhc distribution width (RBC) [Ratio]14.4 %High10.9 - 14.2 %Remisol HemeHematocrit (Bld) [Volume fraction]35.4 %Ebeorf72.0 - 46.0 %Remisol HemeHemoglobin (Bld) [Mass/Vol]11.9 g/dLLow12.0 - 16.0 gm/dLRemisol HemeMCH (RBC) [Entitic mass]31.9 ezQzvttu72.0 - 34.0 pgRemisol HemeMCHC (RBC) [Mass/Vol]33.7 g/mWVgnrts96.4 - 36.0 gm/dLRemisol HemeMCV (RBC) [Entitic vol]94.5 aOQtnpag63.0 - 100.0 fLRemisol HemePlatelet mean volume (Bld) [Entitic vol]7.4 fLNormal6.4 - 10.8 fLRemisol HemePlatelets (Bld) [#/Vol]183.0 E9/UByzcaw779.0 - 500.0 E9/LRemisol HemeRBC (Bld) [#/Vol]3.7 E12/L Low4.3 - 5.9 E12/LRemisol HemeRBC size Nom (Bld)NORMAL *NA* (11/03/24 5:56 AM)Invalid Interpretation CodeRemisol HemeWBC corrected for nucl RBC Auto (Bld) [#/Vol]5.4 E9/LNormal4.0 - 11.0 E9/LRemisol HemeInterdisciplinary Note - Case Manageron 31-75-9139Tdqngsnwdqibbdgsk Note - Photogrammetric Surveyor Interdisciplinary Note - Photogrammetric Surveyor CRM to room 303 Patient is awake, [...] provided CRM contact, white board updated. CRM followingKettering Health DaytonComment on above:Result Comment: Electronically Signed By: Christal Chapman\.br\Date and Time Signed: 11/03/24 10:51 ESTInterdisciplinary Note - OTon 79-35-7385Eegjactcaydbxxgra Note - OTInterdisciplinary Note - OT Ot [facility] six clicks score = no further OT needs. Patient is modified Ind w/ LE self care after instruction, Sup with transfers w/ fww. Pt has spouse support at home and will be safe to return home when medically stable. Pt has all necessary bathroom dme already in place.[facility] Magnesiumon 57-84-6008Korxqrdef [Mass/Vol]1.8 mg/dLNormal1.3-2.4FACMC Healthcare System GlenbeighComment on above:Performed By: #### [id number] #### [facility] [address], [place] [address]Srbujvevdmci 72-22-4582Fdpaivkvd [Mass/Vol]3.1 mg/dLNormal 1.9-4.6FACMC Healthcare System GlenbeighComment on above:Performed By: #### [id number] #### [facility] [address], [place] [address]OF Spine Single View Specify Levelon 33-08-6344SJ Spine Single View Specify LevelExam Date/Time: 11/02/2024 [...] 23.48 DAP = na Fluoro Time: 26 secondsNoWayne HospitaleGFRon 08-54-8735uVFN14 mL/min/1.73 m2Low>=59[facility] HospitalComment on above:Performed By: #### [id number] #### [facility] [address], [place] [address]SLJ/Rhon 86-66-9569UPO/RhPositiveInvalid Interpretation Code [facility] HospitalComment on above:Performed By: #### [id number] #### [facility] [address], [place] [address]CDN/Rh History Checkon 67-84-2644BIB/Rh History CheckVerified Hx Blood TypeNoWayne HospitalComment on above:Performed By: #### [id number] #### [facility] [address], [place] [address]XFSXme 48-02-5668UKKY Gel InterpNegativeNoWayne HospitalComment on above:Performed By: #### [id number] #### [facility] [address], [place] [address]KPDFZ BANKOrdered By: Ericka Srinivasan on 85-60-9612AUL/Rh Interp PositiveInvalid Interpretation CodeB[facility] [place] BB SubsectionABSC Gel InterpNegative (11/02/24 11:08 AM)NormalB[facility] AND [facility] [place] BB SubsectionBlood Bank ID#on [id number]# [id number] Interpretation CodeNorth Levindale Hebrew Geriatric Center And HospitalComment on above: Performed By: #### [id number] #### [facility] Laboratory [address] [place], [place] [address]JELGVBLOOMPBvojdfr By: Ericka Srinivasan on 97-50-8301xZZP Coag (PPP) [Time]43.4 sHigh25.1 - 36.5 second(s)[facility] Auto CoagComment on above: Interpretive Data: Parameter [...] the same coagulation reagent and instrumentation as [facility]. Currently there are no coagulation studies available worldwide for children to 14 days, andno normal ranges. Heparin therapeutic range (represented by Anti-Factor Xa activity of 0.2 - 0.4 U/mL) corresponds to PTT of 56.6 - 109.0 sec.INR Coag (PPP) [Relative time]1.26 {INR}Invalid Interpretation CodeBONE AND [facility] [place] Auto CoagComment on above:Interpretive Data: INR results are specifically intended to assess patients stabilized on long-term Anticoagulation therapy suggested INR s Less Intensive Anticoagulation 2.0 3.0 Conventional Range 3.0 4.5PT Coag (PPP) [Time]14.1 sHigh9.4 - 12.5 second(s)[facility] Auto CoagComment on above:Interpretive Data: 15 days [...] the same coagulation reagent and instrumentation as [facility]. Currently there are no coagulation studies available worldwide for children to 14 days, andno normal ranges.Inpatient Patient Summaryon 32-13-8857Cwlalxbwl Patient Summary Inpatient Patient Summary [address] [address] [facility] Clinical Discharge Instructions PERSON INFORMATION Name: CASSI RODRIGEZ PHYSICIANS Admitting Physician: Shashi De Souza MD Attending Physician: Shashi De Souza MD PCP: BRODERICK HOWARD DO Discharge Diagnosis: Comment: PATIENT EDUCATION INFORMATION Instructions: Medication Leaflets: Follow up: With: Address: When: Shashi De Souza [address] [place] [address], [address] [place] [phone] OGPlan[employer] (1) Comments: f/u3wks ok shower and remove dressing [id number] no lift>5lbs keep incis dry clean. restart coumadin 3 days after surgery. 11-05-24Wednesday. MEDICATION LIST New Medications [facility]/pharmacy #[id number], [address], [place] [phone], [phone] acetaminophen-oxycodone (Percocet 5 mg-325 mg oral tablet) [...] day. takes 6 days of the week. Comment:[facility] DaytonMain OR Intraoperative Recordon 87-30-2813Ukef OR Intraoperative RecordMain OR Intraoperative Record IntraOp Document Type FT Summary Primary Physician: Shashi De Souza MD Finalized Date/Time: 11/02/24 15:52:16 Pt. Name: RODRIGEZCASSI./Sex: 1950 Female Med Rec #: [id number] Physician: Shashi De Souza MD Financial #: [id number] Pt. Type: A Room/Bed: [place] [address] Admit/Disch: 11/02/24 10:13:03 - Institution: Case Times FT Entry 1 Patient Times In Room 11/02/24 14:07:00 Out Room 11/02/24 15:48:00 Procedure Times Start 11/02/24 14:37:00 Stop 11/02/24 15:41:00 Anesthesia Times Start 11/02/24 14:07:00 Stop 11/02/24 15:48:00 Last Modified By: Renetta Melendez 11/02/24 15:51:38 Case Attendance FT Entry 1 Entry 2 Entry 3 Case Attendee Ani Berrios CRNA, MD, Richard B Burgderfer, Kelsie E Role Performed CARLOS ALBERTO Surgeon - Primary Um Nurse - Primary Time In 11/02/24 14:07:00 11/02/24 14:07:00 11/02/24 14:07:00 Time Out 11/02/24 15:48:00 11/02/24 15:48:00 11/02/24 15:48:00 Procedure LUMBAR LAMINECTOMY LUMBAR LAMINECTOMY LUMBAR LAMINECTOMY POSS. FUSION(.) POSS. FUSION(.) POSS. FUSION(.) Comments IS SUPERVISING Last Modified By: Renetta Melendez Kelsie E Burgderfer, Kelsialdair Quinteros 11/02/24 15:51:39 11/02/24 15:51:39 11/02/24 15:51:39 Entry 4 Entry 5 Entry 6 Case Attendee Home Priest, Katy Eastman Role Performed Scrub - Primary INFORMATION SYSTEMS AUDIT MANAGER Clinical Resource Coordinator Time In 11/02/24 14:07:00 11/02/24 14:07:00 11/02/24 14:07:00 Time Out 11/02/24 15:48:00 11/02/24 15:48:00 11/02/24 15:48:00 Procedure LUMBAR LAMINECTOMY LUMBAR LAMINECTOMY LUMBAR LAMINECTOMY POSS. FUSION(.) POSS. FUSION(.) POSS. FUSION(.) Comments Last Modified By: Renetta Melendez Kelsie E Burgderfer, Kelsialdair Quinteros 11/02/24 15:51:39 11/02/24 15:51:39 11/02/24 15:51:39 Entry 7 Entry 8 Case Attendee Jin Presley Ii, Robert David Role Performed Staff - Other Anesthesiologist Stem Shaper Time In 11/02/24 14:07:00 11/02/24 14:53:00 Time Out 11/02/24 14:25:00 11/02/24 15:10:00 Procedure LUMBAR LAMINECTOMY LUMBAR LAMINECTOMY POSS. FUSION(.) POSS. FUSION(.) Comments POSITIONING HELP IS SUPERVISING AND BREAK RELIEF Last Modified By: Renetta Melendez Kelsie E 11/02/24 15:51:39 11/02/24 15:51:39 General Comments: ZELALEM CANNON, IN ATTENDANCE.AVREY CARTER. Perioperative Protocols FT Pre-Care Text: Implements [...] Ap PAUL, Shashi Barragan, Renetta Melendez, Home Priest Albus, Amber M, Ott, Amy Time Out Complete 11/02/24 14:35:00 [...] 11/02/24 14:37:05 Post-Care Text: (more content not included)...[facility] Main OR PACU I Recordon 68-73-7273Blux OR PACU I RecordMain OR PACU I Record PACU Phase I Document Type FT Summary Primary Physician: Shashi De Souza MD Finalized Date/Time: 11/02/24 16:45:46 Pt. Name: CASSI RODRIGEZ /Sex: 1950 Female Med Rec #: [id number] Physician: Shashi De Souza MD Financial #: [id number] Pt. Type: A Room/Bed: [facility]/ Admit/Disch: 11/02/24 10:13:03 - Institution: Case [...] Signatures Signed By: Josefina Tim RN 11/02/24 16:45NorashadMckitrick HospitalMain OR Preoperative Recordon [id number] OR Preoperative RecordMain OR Preoperative Record PreOp Document Type FT Summary Primary Physician: Shashi De Souza MD Finalized Date/Time: 11/02/24 14:42:51 Pt. Name: CASSI RODRIGEZ /Sex: 1950 Female Med Rec #: [id number] Physician: Shashi De Souza MD Financial #: [id number] Pt. Type: A Room/Bed: [place] [address] Admit/Disch: 11/02/24 10:13:03 - Institution: Case Times [...] Renetta Melendez 11/02/24 14:42 Renetta Melendez 11/02/24 14:42[address] John Medical CenterOperative Reporton 15-72-0685Tzjvfukdo Report Operative Report Patient: CASSI RODRIGEZ Age: [...] was brought to the operating room at [facility]. Timeout procedure performed. Patient was intubated [...] and may have unintended errors. Anesthesia type: General.[facility] DaytonComment on above: Result Comment: Electronically Signed By: Shashi De Souza MD\.br\Date and Time Signed: 11/02/24 15:54 ESTOutpatient Surgery Discharge Instructionon 11-02-2024 Outpatient Surgery Discharge InstructionOutpatient Surgery Discharge Instruction [place] [address] Patient Discharge Instructions PERSON INFORMATION Name: CASSI RODRIGEZ DEVAN Date of : 1950 Current Date: 11/02/2024 [...] up: With: Address: When: Shashi De Souza [address] [facility], [address] [place] [phone] Business (1) Comments: f/u3wks ok shower and remove dressing mxpwk26uva no lift>5lbs keep incis dry clean. restart coumadin 3 days after surgery. 11-05-24Wednesday. Pharmacy Information: You may receive a survey from [employer] asking you to rate your care experience. Your feedback is important and will help us understand what we do well and how we can improve the quality of care we provide to you, your loved ones and our community. It???s an honor to serve you. Thank you for choosing [facility] HERE ARE THE MEDICATION CHANGES THAT OCCURRED DURING YOUR HOSPITAL STAY New Medications [id number], [address], [place] [phone], [phone] acetaminophen-oxycodone (Percocet 5 mg-325 mg oral tablet) [...] the week. PATIENT EDUCATION INFORMATION Instructions: Medication Leaflets:NormalMckitrick HospitalPT & PTTon 63-68-4712wOXY Coag (PPP) [Time]43.4 second(s)High25.1-36.5Fisher [facility] Center And HospitalComment on above:Result Comment: Parameter 15 days - [...] the same coagulation reagent and instrumentation as [facility]. Currently there are no coagulation studies available worldwide for children to 14 days, andno normal ranges. Heparin therapeutic range (represented by Anti-Factor Xa activity of 0.2 - 0.4 U/mL) corresponds to PTT of 56.6 - 109.0 sec.Performed By: #### [id number] #### [facility] Laboratory [address], [place] [address]PGH Coag (PPP) [Relative time]1.26 {INR}Invalid Interpretation [facility] HospitalComment on above:Result Comment: INR results are specifically intended to assess patients stabilized on long-term Anticoagulation therapy suggested INR???s ???Less Intensive Anticoagulation??? 2.0 ??? 3.0 Conventional Range 3.0 ??? 4.5Performed By: #### [id number] #### [facility] Laboratory [address], [place] [address]QW Coag (PPP) [Time]14.1 second(s)High9.4-12.5[facility] Center And HospitalComment on above:Result Comment: 15 days - [...] the same coagulation reagent and instrumentation as [facility]. Currently there are no coagulation studies available worldwide for children to 14 days, andno normal ranges.Performed By: #### [id number] #### [facility] Laboratory [address], [place] [address]Nsyxroy Education - Texton 11-35-7509Wcgcjrm Education - Text Patient Education - TextNormalMckitrick HospitalABO/Rh Retypeon 18-95-0081CHF/Rh Retype InterpPositiveInvalid Interpretation [facility] HospitalComment on above:Performed By: #### [id number] #### [facility] Laboratory [address], [place] [address]XXMev 43-41-1276Qghsb gap [Moles/Vol]11 mmol/LNormal6-16[facility] HospitalComment on above:Performed By: #### [id number] #### [facility] Laboratory [address], [place] [address]Rglgrlj [Mass/Vol]8.7 mg/dLLow8.9-11.1FACMC Healthcare System GlenbeighComment on above:Performed By: #### [id number] #### [facility] [address], [place] [address]Tknvryhn [Moles/Vol]109 mmol/ROmzylp574-453EbeiduMckitrick HospitalComment on above:Performed By: #### [id number] #### [facility] Laboratory [address], [place] [address]WY1 [Moles/Vol]25 mmol/JKuovad04-68YdcvvpMckitrick Hospital Comment on above:Performed By: #### [id number] #### [facility] [address], [place] [address]Ojretvrdag [Mass/Vol]1.7 mg/dLHigh0.5-1.3FACMC Healthcare System GlenbeighComment on above:Performed By: #### [id number] #### [facility] Laboratory [address], [place] [address]Pokvxba [Mass/Vol]104 mg/qOLmgxrq78-825JtixqpMckitrick HospitalComment on above:Performed By: #### [id number] #### [facility] [address], [place] [address]Ireqhyapo [Moles/Vol]4.8 mmol/LNormal3.5-5.3FACMC Healthcare System GlenbeighComment on above:Performed By: #### [id number] #### [facility] [address], [place] [address]Myzrzz [Moles/Vol]140 mmol/VPhuawr429-023MyaaltMckitrick HospitalComment on above:Performed By: #### [id number] #### [facility] [address] [place] [address]Ifxw nitrogen [Mass/Vol]22 mg/dLHigh5-21[facility] HospitalComment on above:Performed By: #### [id number] #### [facility] [address] [place] [address]Fugs nitrogen/Creatinine [Mass ratio]13 No SwxfjCwamaf98-31 [facility] HospitalComment on above:Performed By: #### [id number] #### [facility] [address] [place] [address]CDO w/ Auto Diffon 23-05-6253Bsdtbthkb/100 WBC (Bld)0.6 %Normal 0.0-2.0[facility] HospitalComment on above:Performed By: #### [id number] #### [facility] [address] [place] [address]Stvayssya/Leukocytes Auto (Bld) [Pure # fraction]0.0 E9/LNormal 0.0-0.2FACMC Healthcare System GlenbeighComment on above:Performed By: #### [id number] #### [facility] [address] [place] [address]Uwzskjauiag (Bld) [#/Vol]0.3 E9/LNormal0.0-0.5FACMC Healthcare System GlenbeighComment on above:Performed By: #### [id number] #### [facility] [address] [place] [address]Atvdmqpaltl/100 WBC (Bld)6.0 %Normal0.0-8.0[facility] HospitalComment on above:Performed By: #### [id number] #### [facility] [address] [place] [address]Bjqcdtqmgpt distribution width (RBC) [Ratio]14.1 %Normal 10.9-14.2FACMC Healthcare System GlenbeighComment on above:Performed By: #### [id number] #### [facility] [address] [place] [address] [place] [address]Fqdxldcfmn (Bld) [Volume fraction]36.8 %Hpidrp20.0-46.0[facility] HospitalComment on above:Performed By: #### [id number] #### [facility] [address] [place] [address]Ikethsrokc (Bld) [Mass/Vol]12.4 g/lAYprrmk03.0-16.0[facility] HospitalComment on above:Performed By: #### [id number] #### [facility] Laboratory [address] [place] [address]Ynkwhzvqttm (Bld) [#/Vol]0.7 E9/LLow1.0-4.0[facility] HospitalComment on above:Performed By: #### [id number] #### [facility] [address] [place] [address]Eipleyvopfi/100 WBC (Bld)15.2 %Mxemif24.0-50.0[facility] HospitalComment on above:Performed By: #### [id number] #### [facility] [address] [place] [address]XWN (RBC) [Entitic mass]31.4 lnIxijhf46.0-34.0[facility] HospitalComment on above:Performed By: #### [id number] #### [facility] [address] [place] [address]TVYO (RBC) [Mass/Vol]33.8 g/jDPxaaje27.4-36.0[facility] HospitalComment on above:Performed By: #### [id number] #### [facility] [address] [place] [address]RXZ (RBC) [Entitic vol]93.0 uIMvedkk70.0-100.0[facility] HospitalComment on above:Performed By: #### [id number] #### [facility] [address] [place] [address]Ermsdqnsj (Bld) [#/Vol]0.3 E9/LNormal0.2-1.0[facility] HospitalComment on above:Performed By: #### [id number] #### [facility] [address] [place] [address]Allkdrfpxnh (Bld) [#/Vol]3.4 E9/LNormal2.0-7.5FACMC Healthcare System GlenbeighComment on above:Performed By: #### [id number] #### [facility] [address] [place] [address]Wspipduupqg/100 WBC (Bld)71.7 %Crjlnd77.0-75.0[facility] HospitalComment on above:Performed By: #### [id number] #### [facility] [address] [place] [address]Zxpzslvn279.0 E9/VNobkzw558.0-500.0[facility] Comment on above:Performed By: #### [id number] #### [facility] [address] [place] [address]Dpndayhi mean volume (Bld) [Entitic vol]7.4 fLNormal6.4-10.8 [facility] HospitalComment on above:Performed By: #### [id number] #### [facility] [address] [place] [address]NOK (Bld) [#/Vol]4.0 E12/LLow4.3-5.9[facility] Comment on above:Performed By: #### [id number] #### [facility] [address] [place] [address]JAE corrected for nucl RBC Auto (Bld) [#/Vol]4.7 E9/LNormal 4.0-11.0[facility] HospitalComment on above:Performed By: #### [id number] #### [facility] [address] [place] [address]OS Spine Lumbar w/o Contraston 60-72-7661EA Spine Lumbar w/o ContrastExam Date/Time: 10/23/2024 16:44 [...] Broderick Sunshine MD Transcribed by: CLINTON Technologist: CNKNormalMckitrick HospitalPlt Function Assayon 37-69-3494Xugaiuqm function (closure time) collagen+EPINEPHrine induced (Bld) [Time]78 second(s)Iscdxq49-912ZuvhqeMckitrick HospitalComment on above:Result Comment: Normal ASA vWD Glanzmann???s Thrombasthenia ------- ------ ------- COL/EPI Normal Abnormal Abnormal Abnormal Col/ADP Normal Normal Abnormal AbnormalPerformed By: #### [id number] #### [facility] [address] [place] [address]TB with Cult Rflxon 74-99-2548Prectvoml Ql (U)NegativeNormal NegativeMckitrick HospitalComment on above:Performed By: #### [id number] #### [facility] [address], [place] [address]Nnvczgf (U)ClearNormalClearFisher [facility] And HospitalComment on above:Performed By: #### [id number] #### [facility] [address], [place] [address]Yhiyg (U)Light-YellowNormalYellowMckitrick Hospital Comment on above:Result Comment: Microscopic readings are only performed on those samples that meet specific criteria set forth by [facility].Performed By: #### [id number] #### [facility] [address], [place] [address]Dpcpxvg Ql (U)NegativeNormalNegativeMckitrick Hospital Comment on above:Performed By: #### [id number] #### [facility] [address], [place] [address]Doaipcgtuj Auto test strip (U) [Mass/Vol]NegativeNormalNegative [facility] HospitalComment on above:Performed By: #### [id number] #### [facility] [address], [place] [address]Uybeidr Auto test strip Ql (U)NegativeNormalNegativeMckitrick HospitalComment on above:Performed By: #### [id number] #### [facility] [address], [place] [address]Sooxtfqdc esterase Auto test strip Ql (U)NegativeNormalNegative [facility] HospitalComment on above:Performed By: #### [id number] #### [facility] [address], [place] [address]Fybbmfl Auto test strip Ql (U)NegativeNormalNegativeMckitrick HospitalComment on above:Performed By: #### [id number] #### [facility] [address], [place] [address]bZ (U)5.5 [pH]Invalid Interpretation Code5.0-9.0[facility] HospitalComment on above:Performed By: #### [id number] #### [facility] [address] [place] [address]Paosdzr Ql (U)NegativeNomartin general hospitalNegSt. Francis Hospital Comment on above:Performed By: #### [id number] #### [facility] [address], [place] [address]Ggkyxysw gravity (U) [Rel density]1.018Invalid Interpretation Code1.005-1.030M[facility]itrick HospitalComment on above:Performed By: #### [id number] #### [facility] [address] [place] [address]Vhlmrybipmni (U) [Mass/Vol]NegativeNormalNegSt. Francis HospitalComment on above:Performed By: #### [id number] #### [facility] [address] [place] [address] 74633Skgt of Urine collection methodClean CatchKettering Health DaytonComment on above:Performed By: #### [id number] #### [facility] [address] [place] [address] [id number] Chest 2 Viewson 80-81-5858WR Chest 2 ViewsExam Date/Time: 10/25/2024 11:53 EST [...] [place] Technologist: CHANTALE Technical Comments Radiation Dose: Kar in mGy = . 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 Ordering physician: KITTY MILLARD Indication: Evaluation of device (pacemaker, ICD, or GUN EXAMINER) after revascularization Technologist: Iwona HUANG Interpreting physician: [...] indication: Evaluation of device (pacemaker, ICD, or GUN EXAMINER) after revascularization - The left ventricle is [...] * * * Final * * * [facility] : [id number]x [facility] 13-55-1509XXOLTlqzxu Visit (NEADFV) CASSI RODRIGEZ ([id number]) 1950 F Date Time Provider Department 09/05/24 [...] Jewell RN Botox, 2 vials: Lot # [id number] Exp 10/2026 Lot # [id number] Exp 10/[address] Reilly to administer and verified order. Randa Reilly MD 09/05/2024 1:54 PM Signed PROGRESS NOTE- HEADACHE MEDICINE SERVICE DATE: September 05, 2024 Location: [facility] neurological owls head Participants: patient, and provider HPI: Here for [...] sleep medicine Randa Reilly MD [facility] Randa Reilly MD 09/05/2024 1:54 PM Signed [...] Injection Sites Muscle Fixed Site/Fixed Dose Bilat Yardage Control Operator Forming 20 U divided in 2 sites Procerus [...] Total Units wasted: 0 Randa Reilly MD [facility] R (more content not included)...NormalFairview HospitalECG COMPLETEon 09-01-2024 Atrial Ayiw42SYVDaqxaehng ClinicCalculated P Wgox31cfjbvtcMkeldvxwc Clinic Calculated R Yoyw34qafmylaVafzobqtb ClinicCalculated T Aklv50ludndvoRrdvkletq ClinicP-R Hejrmsbd991 msCleveland ClinicQRS Uoqotgzy47 msCleveland ClinicQT Hqohzwal759 msCleveland ClinicQTC Calculation (Bazett)448 msCleveland Clinic Ventricular Flzk12YIGQdczyrodb ClinicATRIAL-PACED RHYTHM LOW VOLTAGE QRS, CONSIDER PULMONARY DISEASE, PERICARDIAL EFFUSION, OR NORMAL VARIANT ABNORMAL ECG Confirmed by JONATHAN TELLEZ MD ([id number]) on 09/01/2024 1:53:38 PMUNIVERSITY HOSPITALS [facility]ENTERRT AND VASCULAR INSTITUTENAME : JACECASSI PID : [id number] : 1950 Gender : Female Race : [...] , Acquired by : ,[facility] 62-69-1051PDIH Office Visit (CAEPAV) CASSI RODRIGEZ ([id number]) 1950 F Date Time Provider Department 08/31/24 10:00 AM KITTY VALENTE CAEPAV During your visit today, we recorded the following information about you: Pulse Blood pressure Weight Height 81/minute 134/72 88 kg 1.575 m Kitty Valente MD 09/02/2024 12:42 AM Signed [facility] Department of Cardiovascular Medicine SECTION OF CARDIAC PACING and ELECTROPHYSIOLOGY OUTPATIENT VISIT DATE NASRIN July 23, 2022 August 31, 2024 OUTPATIENT VISIT TYPE ESTABLISHED PRIMARY CARE PHYSICIAN: Broderick Howard MD ([facility]) [address] [place] [address] CHIEF COMPLAINT: Pacemaker management HISTORY OF PRESENT [...] is appropriate. Review of (more content not included)...NormalHenry County HospitalECG01on 91-98-2769IBJ12Jbrtmfszgml Rate : 81 BPM Atrial Rate : 81 BPM P-R Interval : 186 ms QRS Duration : 80 ms Q-T Interval : 386 ms QTC Calculation(Bazett) : 448 ms Calculated P [place] : 74 degrees Calculated R [place] : 73 degrees Calculated T [place] : 67 degrees ATRIAL-PACED RHYTHM LOW VOLTAGE QRS, CONSIDER PULMONARY DISEASE, PERICARDIAL EFFUSION, OR NORMAL VARIANT ABNORMAL ECG Confirmed by JONATHAN TELLEZ MD ([id number]) on 09/01/2024 1:53:38 PM NAME : CASSI RODRIGEZ PID : [id number] : 1950 Gender : Female Race : [...] Referred By : , Acquired by : ,GeraldHenry County HospitalErythrocyte distribution width Auto (RBC) [Ratio]on 50-25-6370Cupnrrmyjfx distribution width (RBC) [Ratio]13.0 %11.0-15.0[facility] Hospital ToledoErythrocyte distribution width (RBC) [Ratio]Erythrocyte distribution width [Ratio] by Automated count11.0-15.0 [facility] ToledoEstimated glomerular filtration rate (GFR) non- Americanon 72-23-7646NRW/1.73 sq M.predicted among non-blacks MDRD (S/P/Bld) [Vol rate/Area]26 mL/min/{1.73_m2}Low>=60 mL/min/1.73m 2FMercy Health St. Vincent Medical CenterGFR/1.73 sq M.predicted among non-blacks MDRD (S/P/Bld) [Vol rate/Area]Estimated glomerular filtration rate (GFR) non- Low>=60 mL/min/1.73m [address] [place], [place] [address]Hematocrit Auto (Bld) [Volume fraction]on 92-21-4763Afdowzfsul (Bld) [Volume fraction]37.4 %36.0-48.0 [facility] ToledoHematocrit (Bld) [Volume fraction]Hematocrit [Volume Fraction] of Blood by Automated count36.0-48.0[facility] ToledoHemoglobin [Mass/volume] in Bloodon 95-61-9048Tjeqrwcbxp (Bld) [Mass/Vol] 11.8 g/dLLow12.0-16.0[facility] ToledoHemoglobin (Bld) [Mass/Vol]Hemoglobin [Mass/volume] in JmszxSzg99.0-16.0[facility] ToledoIron binding capacity [Mass/volume] in Serum or Plasmaon 68-32-3899Jvev binding capacity [Mass/Vol]356.0 ug/dL250.0-450.0[facility] ToledoIron binding capacity [Mass/Vol]Iron binding capacity [Mass/volume] in Serum or Aqhfqb226.0-450.0[facility] ToledoIron saturation [Mass Fraction] in Serum or Plasmaon 39-34-8059Fhet saturation [Mass fraction]14.3 %[facility] ToledoIron saturation [Mass fraction] Iron saturation [Mass Fraction] in Serum or PlasmaRegency Hospital ToledoLaboratory - Chemistry and Chemistry - challengeon 79-85-4487Hsnunjm [Mass/Vol]3.3 g/dLLow3.4-5.0[facility] ToledoCalcium [Mass/Vol] 8.6 mg/dL8.5-10.1FMercy Health St. Vincent Medical CenterChloride [Moles/Vol]108 mmol/L Zlsx00-646YnhwxxhuwRegency Hospital ToledoCO2 [Moles/Vol]21.8 mmol/L21.0-32.0 [facility] ToledoCreatinine [Mass/Vol]1.91 mg/dLHigh0.55-1.02 [facility] ToledoFerritin [Mass/Vol]15.0 ng/mL8.0-252.0[facility] ToledoGFR/1.73 sq M.predicted MDRD (S/P/Bld) [Vol rate/Area]31 mL/min/{1.73_m2}Low>=60 mL/min/1.73m [address]FM[address] Health [address] Vincent Medical CenterGlucose [Mass/Vol]135 mg/gOYpgj21-102GdtesifasRegency Hospital ToledoIron [Mass/Vol] 51.0 ug/dL50.0-170.0[facility] ToledoMagnesium [Mass/Vol]2.0 mg/dL1.8-2.4FMercy Health St. Vincent Medical CenterPotassium [Moles/Vol]4.0 mmol/L 3.5-5.1FLutheran Hospitalodium [Moles/Vol]142 mmol/H030-627 [facility] ToledoUrate [Mass/Vol]5.0 mg/dL2.6-6.0[facility] ToledoUrea nitrogen [Mass/Vol]24.0 mg/dLHigh7.0-18.0[facility] ToledoUrea nitrogen/Creatinine [Mass ratio]12.6 mg/mgRegency Hospital ToledoBilirubin Ql (U)NegativeNEGATIVERegency Hospital ToledoGlucose (U) [Mass/Vol]NegativeNEGATIVERegency Hospital ToledoKetones Ql (U)NegativeNEGATIVERegency Hospital ToledopH (U)5.5 [pH]5.0-9.0[facility]iance Hospitalpecific gravity (U) [Rel density] 1.0251.005-1.025Reg[facility] Hospital ToledoUrobilinogen Qn (U)0.2 {Lin'U}/dL0.2-1.0[facility] ToledoLaboratory - Specimen informationon 00-10-7684Pmxiefpmtj (U)CLEARCLEARFMercy Health St. Vincent Medical CenterColor (U)YELLOWYELLOWRegency Hospital ToledoLaboratory - Urinalysison 74-14-1144Qoxlrjhjx esterase Test strip Ql (U)NegativeNEGATIVE [facility] ToledoMucus Ql (Urine sed)NONE SEENNONE SEENRegency Hospital ToledoNitrite Ql (U)NegativeNEGATIVERegency Hospital ToledoProtein (U) [Mass/Vol]16.2 mg/dLHigh<=11.9[facility] ToledoProtein Ql (U)NegativeNEG/TRACERegency Hospital ToledoLeukocytes [#/volume] corrected for nucleated erythrocytes in Blood by Automated counon 44-63-6759LYP corrected for nucl RBC Auto (Bld) [#/Vol]5.2 10 3/uL4.0-11.0 [facility] ToledoWBC corrected for nucl RBC Auto (Bld) [#/Vol] Leukocytes [#/volume] corrected for nucleated erythrocytes in Blood by Automated coun.0-11.0[facility] ToledoMCH Auto (RBC) [Entitic mass]on 15-85-7474VMJ (RBC) [Entitic mass]31.1 pg26.7-34.0[facility] (RBC) [Entitic mass]MCH [Entitic mass] by Automated count26.7-34.0 [facility] ToledoMCHC Auto (RBC) [Mass/Vol]on 02-34-8766VXOQ (RBC) [Mass/Vol]31.6 g/dL29.9-35.2FMercy Health St. Vincent Medical CenterMCHC (RBC) [Mass/Vol]MCHC [Mass/volume] by Automated count29.9-35.2FOhio State Harding HospitalV Auto (RBC) [Entitic vol]on 44-79-3777HVM (RBC) [Entitic vol] 98.4 fL81.0-99.0Sheltering Arms HospitalV (RBC) [Entitic vol]MCV [Entitic volume] by Automated count81.0-99.0[facility] ToledoNo Panel Informationon 475058-Uilxhpv Vitamin D Total22.3 ng/mLRegency Hospital ToledoComment on above:<20 ng/mL Vit D asyglklpg49-<30 ng/mL Vit D zsznohsxukfq06-405 ng/mL Vit D sufficient>100 ng/mL Potential Toxicity Parathyroid Hormone (Intact)194 pg/qQElqzehxc15-37FenkaiiobRegency Hospital ToledoComment on above:Performed at: [facility] [id number] Director: Junaid Sawyer PhD, Phone: [phone] Phosphorus Level3.0 mg/dL2.6-4.7FMercy Health St. Vincent Medical CenterUrine Bacteria NONE SEEN #/HPFNONE [facility] CenterUrine Occult Blood NegativeNEGATIVERegency Hospital ToledoUrine Other CastsNONE SEEN #/LPFNONE [facility] CenterUrine Other CrystalsNone Seen #/HPFNone [facility] CampusUrine Random Wveyxjclpo189.09 mg/dL20.00-300.00[facility] ToledoUrine RBCNONE SEEN #/HPF0-2 [facility] ToledoUrine Squamous Epithelial CellsRARE #/LPF NONE/RARERegency Hospital ToledoUrine WBC0-2 #/HPFAbnormalNONE SEEN [facility] ToledoPlatelet mean volume Auto (Bld) [Entitic vol]on 44-64-1732Psqkeogk mean volume (Bld) [Entitic vol]9.5 fL9.5-13.5FMercy Health St. Vincent Medical CenterPlatelet mean volume (Bld) [Entitic vol]Platelet mean volume [Entitic volume] in Blood by Automated count9.5-13.5FMercy Health St. Vincent Medical CenterPlatelets Auto (Bld) [#/Vol]on 82-58-1450Dqhfjsqnh (Bld) [#/Vol] 219 10 3/tZ681-589HfmampeckRegency Hospital ToledoPlatelets (Bld) [#/Vol] Platelets [#/volume] in Blood by Automated ygvkj328-445AnzqccftuRegency Hospital ToledoRBC Auto (Bld) [#/Vol]on 18-41-5569LOG (Bld) [#/Vol]3.80 10 6/uL Low4.20-5.40[facility] Hospital ToledoRBC (Bld) [#/Vol]Erythrocytes [#/volume] in Blood by Automated countLow4.20-5.40Mer[facility] Health Defiance Hospitalerum or plasma anion gap determinationon 19-37-5050Qqzmo gap [Moles/Vol] 16.2 mmol/LFMercy Health St. Vincent Medical CenterAnion gap [Moles/Vol]Serum or plasma anion gap determinationRegency Hospital ToledoUrine protein/creatinine ratioon 03-19-4216Kgysqyg/Creatinine (U) [Ratio]0.12[facility] ToledoProtein/Creatinine (U) [Ratio]Urine protein/creatinine ratioRegency Hospital ToledoBasophils Auto (Bld) [#/Vol]on 07-05-2024 Basophils (Bld) [#/Vol]0.0 10 3/uL0.0-0.1FMercy Health St. Vincent Medical Center Basophils/100 WBC Auto (Bld)on 75-67-9525Rwzbdqdkb/100 WBC (Bld)0.7 %0.2-2.0 [facility] ToledoEosinophils/100 WBC Auto (Bld)on 07-05-2024 Eosinophils/100 WBC (Bld)4.2 %0.9-7.0[facility] Erythrocyte distribution width Auto (RBC) [Ratio]on 30-46-6887Uadscvxlcsg distribution width (RBC) [Ratio]14.9 %11.0-15.0[facility] Hematocrit Auto (Bld) [Volume fraction]on 53-09-3550Eiwyplrwks (Bld) [Volume fraction]36.5 %36.0-48.0[facility] ToledoHemoglobin [Mass/volume] in Bloodon 64-44-6990Zvwzqwthay (Bld) [Mass/Vol]11.9 g/dLLow 12.0-16.0[facility] ToledoIron binding capacity [Mass/volume] in Serum or Plasmaon 30-69-0704Znay binding capacity [Mass/Vol]344.0 ug/dL 250.0-450.0[facility] ToledoIron saturation [Mass Fraction] in Serum or Plasmaon 80-50-6226Vcvk saturation [Mass fraction]18.9 %[facility] ToledoLaboratory - Chemistry and Chemistry - challengeon 89-05-6566Wbsptuozn (Vitamin B12) [Mass/Vol]400.0 pg/mL193.0-986.0[facility] ToledoFerritin [Mass/Vol]24.0 ng/mL8.0-252.0[facility] ToledoIron [Mass/Vol]65.0 ug/dL50.0-170.0[facility] ToledoLaboratory - Hematology and Cell countson 59-08-1941Kkywjksi granulocytes/100 WBC (Bld)0.6 %High0.0-0.5FMercy Health St. Vincent Medical Center Leukocytes [#/volume] corrected for nucleated erythrocytes in Blood by Automated counon 47-64-3452RNF corrected for nucl RBC Auto (Bld) [#/Vol]5.4 10 3/uL 4.0-11.0[facility] ToledoLymphocytes Auto (Bld) [#/Vol]on 69-28-6091Nreirtaqllo (Bld) [#/Vol]0.8 10 3/uLLow1.2-3.8[facility] ToledoLymphocytes/100 WBC Auto (Bld)on 20-86-6717Bgynxglcuyj/100 WBC (Bld)14.4 %Low20.5-60.0Sheltering Arms HospitalH Auto (RBC) [Entitic mass]on 07-62-1775XVW (RBC) [Entitic mass]30.8 pg26.7-34.0[facility] ToledoMCHC Auto (RBC) [Mass/Vol]on 46-04-8959OIGN (RBC) [Mass/Vol]32.6 g/dL29.9-35.2FMercy Health St. Vincent Medical CenterMCV Auto (RBC) [Entitic vol]on 56-26-9374QNH (RBC) [Entitic vol]94.6 fL81.0-99.0[facility] ToledoMonocytes Auto (Bld) [#/Vol]on 77-61-7976Dqtrmbarc (Bld) [#/Vol]0.4 10 3/uL0.3-0.8[facility] ToledoMonocytes/100 WBC Auto (Bld)on 82-12-2914Vjqarjpjq/100 WBC (Bld)6.5 %1.7-12.0[facility] Neutrophils Auto (Bld) [#/Vol]on 40-77-3032Eotbdypnbcb (Bld) [#/Vol]4.0 10 3/uL 1.4-6.5FMercy Health St. Vincent Medical CenterNeutrophils/100 WBC Auto (Bld)on 60-83-2430Ltphsvfuevh/100 WBC (Bld)73.6 %43.0-75.0[facility] ToledoNo Panel Informationon 43-50-7059Fmh Manual DifferentialSee comment [facility] ToledoComment on above:SEE SCANNED REPORTEosinophils # (Auto)0.2 10 3/uL0.0-0.7FMercy Health St. Vincent Medical CenterFolate10.80 ng/mL 8.60-58.90[facility] ToledoImmature Granulocyte # (Auto)0.03 10 3/uL0.00-0.03[facility] ToledoPlatelet mean volume Auto (Bld) [Entitic vol]on 27-46-0410Uktfajyt mean volume (Bld) [Entitic vol]9.4 fLLow 9.5-13.5Fire[facility] Regional Medical CenterPlatelets Auto (Bld) [#/Vol]on 19-81-0785Oxtocugdd (Bld) [#/Vol]180 10 3/vP739-212IoqyoiehmRegency Hospital ToledoRBC Auto (Bld) [#/Vol]on 68-39-1406PEW (Bld) [#/Vol]3.86 10 6/uLLow 4.20-5.40[facility] ToledoComprehensive metabolic 2000 panelon 98-81-6032Reucyfx [Mass/Vol]4.3 g/dL3.9 - 4.9 g/dLCleaultman hospital ClinicALP [Catalytic activity/Vol]170 U/LHigh34 - 123 U/LCleveland ClinicALT [Catalytic activity/Vol]28 U/L7 - 38 U/LCleveland ClinicAnion gap [Moles/Vol]8 mmol/L8 - 15 mmol/LCleveland ClinicAST [Catalytic activity/Vol]22 U/L13 - 35 U/LCleveland ClinicBilirubin [Mass/Vol]0.4 mg/dL0.2 - 1.3 mg/dLCleaultman hospital ClinicCalcium [Mass/Vol]8.8 mg/dL8.5 - 10.2 mg/dLWasco ClinicChloride [Moles/Vol]109 mmol/LHigh98 - 107 mmol/LCleveland ClinicCO2 [Moles/Vol]24 mmol/L22 - 30 mmol/L [facility] ClinicCreatinine [Mass/Vol]1.73 mg/dLHigh0.58 - 0.96 mg/dLWasco ClinicGFR/1.73 sq M.predicted among non-blacks MDRD (S/P/Bld) [...] eGFRmay not accurately reflect actual GFR.Glucose [Mass/Vol]111 mg/nYVgqd87 - 99 mg/dL Summa HealthComment on above:The [place] Diabetes Association (ADA) provides guidance for cutoff [...] Standards of Medical Care in Diabetes 2016, [place] Diabetes Association. Diabetes Care. 2016.39(Suppl 1). Interpretation and review of laboratory resultsAbnormalCleveland ClinicPotassium [Moles/Vol]5.1 mmol/L3.7 - 5.1 mmol/LCleveland ClinicProtein [Mass/Vol]7.0 g/dL 6.3 - 8.0 g/dLCleaultman hospital ClinicSodium [Moles/Vol]141 mmol/L136 - 144 mmol/L [facility] HealthUrea nitrogen [Mass/Vol]34 mg/dLHigh7 - 21 mg/dLMarietta Osteopathic ClinicLEVETIRACETAMon 55-53-9292lzxBQANRrrhrc [Mass/Vol]59.9 ug/mLHigh 12.0 - 46.0 ug/mLCleveland ClinicComment on above:This test is not suitable [...] and its performance characteristics determined by [facility]'s [facility] CenterM[facility] ([facility] CENTERPLMI). It has not been cleared or approved by the FDA. [facility] is regulated under CLIA as qualified to perform high-complexity testing. Thistest is used for clinical purposes. It should not be regarded as investigational or for research. Laboratory - Chemistry and Chemistry - challengeon 77-77-8894Asevlha [Mass/Vol] 4.3 g/dL3.9-4.9[facility] ToledoALP [Catalytic activity/Vol]170 U/BTqaq90-118OcjyuvyscRegency Hospital ToledoALT [Catalytic activity/Vol]28 U/L 7-38[facility] ToledoAST [Catalytic activity/Vol]22 U/L13-35 [facility] ToledoBilirubin [Mass/Vol]0.4 mg/dL0.2-1.3FMercy Health St. Vincent Medical CenterCalcium [Mass/Vol]8.8 mg/dL8.5-10.2FMercy Health St. Vincent Medical CenterChloride [Moles/Vol]109 mmol/XHrrn08-924TzwcqbmgeRegency Hospital ToledoCO2 [Moles/Vol]24 mmol/M41-72RjkxyrcrnRegency Hospital ToledoCreatinine [Mass/Vol]1.73 mg/dLHigh0.58-0.96[facility] ToledoGlucose [Mass/Vol]111 mg/pXEahx33-81EygrrmgdeRegency Hospital ToledoComment on above: The [place] Diabetes Association (ADA) provides guidance for cutoff [...] diabetes.Reference: Standardsof Medical Care in Diabetes 2016, [place] Diabetes Association. Diabetes Care. 2016.39(Suppl 1).Potassium [Moles/Vol]5.1 mmol/L3.7-5.1FLutheran Hospitalodium [Moles/Vol]141 mmol/Y231-004FcieraslfRegency Hospital ToledoUrea nitrogen [Mass/Vol]34 mg/dLHigh7-21[facility] No Panel Informationon 64-60-3964Ukgixntfc GFR (CKD-EPI)31 mL/min/1.73m???Low >=60[facility] ToledoComment on above:Estimated Glomerular Filtration Rate (eGFR) is calculated using the 2020 CKD-EPI creatinine equation. This equation utilizes serum creatinine, sex, and age as parameters. The creatinine assay has traceable calibration to isotope dilution-mass spectrometry. Refer to KDIGO guidelines for clinical interpretation. In patients with unstable renal function, e.g. those with acute kidney injury, the eGFRmay not accurately reflect actual GFR.Levetiracetam (Keppra) Level59.9 ug/mLHigh 12.0-46.0[facility] ToledoComment on above:This test is not suitable for patients receiving treatment with the drug brivaracetam (Briviact). The drug causes an interference that may lead to falsely elevated levetiracetam results.Reference ranges and high/low indicator flags are provided as general guidelines only. The treating physician must determine appropriate target levels/dosing based on the specific clinical situation.This test was developed and its performance characteristics determined by [facility]'s [facility] ([facility]ENTERPLPR). It has not been cleared or approved by the FDA. [facility] is regulated under CLIA as qualified to perform high-complexity testing. This test is used for clinical purposes. It should not be regarded as investigational or for research.Protein [Mass/volume] in Serum or Plasmaon 86-00-6154Qpcrwfp [Mass/Vol]7.0 g/dL6.3-8.0[facility]iance Hospitalerum or plasma anion gap determinationon 70-38-2848Nfgcj gap [Moles/Vol]8 mmol/L06-29[facility] Hospital ToledolevETIRAcetam [Mass/Vol]on 81-90-6003Dtsaneswmvjrmp and review of laboratory resultsAbnormal Kettering HealthINR in Platelet poor plasma by Coagulation assay on 32-20-7812BSO Coag (PPP) [Relative time]2.29 {INR}[facility] ToledoComment on above:DESIRED INR:2.0-3.0 CONDITIONS NOT LISTED BELOW2.5-3.5 FOR PROSTHETIC HEART VALVE REPLACEMENT2.5-3.5 RECURRENT THROMBOSISProthrombin time (PT)on 42-34-3679IO Coag (PPP) [Time]22.4 sHigh9.0-11.6FMercy Health St. Vincent Medical CenterCreatinine (Bld) [Mass/Vol]Ordered By: David Mcfadden on 05-30-2024 Creatinine [Mass/Vol]1.8 mg/dLHigh0.6-1.3FMercy Health St. [facility] Center Comment on above:ER/ESD physician is notified/shown all ISTAT results.Critical values may be confirmed by laboratorytesting ifdeemed necessary by ER attending doctor.No Panel InformationOrdered By: David Mcfadden on 34-89-4961Qzwwqju Estimated GFR (eGFR)29.200[facility] ToledoINR in Platelet poor plasma by Coagulation assayon 03-52-0177JKI Coag (PPP) [Relative time]2.71 {INR} [facility] ToledoComment on above:DESIRED INR:2.0-3.0 CONDITIONS NOT LISTED BELOW2.5-3.5 FOR PROSTHETIC HEART VALVE REPLACEMENT2.5-3.5 RECURRENT THROMBOSISProthrombin time (PT)on 32-30-1674MS Coag (PPP) [Time]26.0 sHigh 9.0-11.6FMercy Health St. Vincent Medical CenterBasophils Auto (Bld) [#/Vol]on 40-12-1563Smjgrygzl (Bld) [#/Vol]0.0 10 3/uL0.0-0.1FMercy Health St. Vincent Medical CenterBasophils/100 WBC Auto (Bld)on 98-67-9095Digzxjynk/100 WBC (Bld)1.1 % 0.2-2.0[facility] ToledoEosinophils/100 WBC Auto (Bld)on 08-00-4995Kjukfvkgcvr/100 WBC (Bld)6.9 %0.9-7.0[facility] Erythrocyte distribution width Auto (RBC) [Ratio]on 41-92-4433Bvczcvvuwhn distribution width (RBC) [Ratio]13.3 %11.0-15.0[facility] Estimated glomerular filtration rate (GFR) non- Americanon 05-05-2024 GFR/1.73 sq M.predicted among non-blacks MDRD (S/P/Bld) [Vol rate/Area]32 mL/min/{1.73_m2}Low>=60[facility] ToledoHematocrit Auto (Bld) [Volume fraction]on 56-06-4662Ejajlpbqwo (Bld) [Volume fraction]35.5 %Low 36.0-48.0[facility] ToledoHemoglobin [Mass/volume] in Bloodon 37-80-7682Xahlazdtqr (Bld) [Mass/Vol]11.1 g/dLLow12.0-16.0[facility] ToledoLaboratory - Chemistry and Chemistry - challengeon 05-05-2024 Calcium [Mass/Vol]8.4 mg/dLLow8.5-10.1FMercy Health St. Vincent Medical CenterChloride [Moles/Vol]108 mmol/KLmzf77-755DkwkoysfqRegency Hospital ToledoCO2 [Moles/Vol] 26.2 mmol/L21.0-32.0[facility] ToledoCreatinine [Mass/Vol]1.60 mg/dLHigh0.55-1.02[facility] ToledoGFR/1.73 sq M.predicted MDRD (S/P/Bld) [Vol rate/Area]38 mL/min/{1.73_m2}Low>=60[facility] ToledoGlucose [Mass/Vol]103 mg/gW33-984HievtkjeiRegency Hospital Toledo Potassium [Moles/Vol]4.4 mmol/L3.5-5.1FLutheran Hospitalodium [Moles/Vol]140 mmol/H836-422YqwqnmsqdRegency Hospital ToledoUrea nitrogen [Mass/Vol]24.0 mg/dLHigh7.0-18.0[facility] ToledoUrea nitrogen/Creatinine [Mass ratio]15.0 mg/mgRegency Hospital Toledo Laboratory - Hematology and Cell countson 34-47-2893QGL (Bld) [Velocity]45 mm/h High<=30[facility] ToledoImmature granulocytes/100 WBC (Bld)0.0 %0.0-0.5FMercy Health St. Vincent Medical CenterLeukocytes [#/volume] corrected for nucleated erythrocytes in Blood by Automated counon 74-50-2198YVD corrected for nucl RBC Auto (Bld) [#/Vol]3.8 10 3/uLLow4.0-11.0[facility] ToledoLymphocytes Auto (Bld) [#/Vol]on 95-83-7864Qujuyrlrrfb (Bld) [#/Vol]1.0 10 3/uLLow1.2-3.8[facility] ToledoLymphocytes/100 WBC Auto (Bld)on 81-37-4934Vhtsopybvla/100 WBC (Bld)27.1 %20.5-60.0[facility]tering Arms HospitalH Auto (RBC) [Entitic mass]on 59-86-7338LKX (RBC) [Entitic mass]28.8 pg 26.7-34.0[facility] ToledoMCHC Auto (RBC) [Mass/Vol]on 22-31-0692THEG (RBC) [Mass/Vol]31.3 g/dL29.9-35.2FMercy Health St. Vincent Medical CenterMCV Auto (RBC) [Entitic vol]on 26-70-0537PGX (RBC) [Entitic vol]92.2 fL 81.0-99.0[facility] ToledoMonocytes Auto (Bld) [#/Vol]on 68-46-2259Latfkfxcb (Bld) [#/Vol]0.3 10 3/uL0.3-0.8[facility]edoMonocytes/100 WBC Auto (Bld)on 08-39-4602Ztegbdkuc/100 WBC (Bld)8.2 % 1.7-12.0[facility] ToledoNeutrophils Auto (Bld) [#/Vol]on 31-50-5451Zlohxhrxptv (Bld) [#/Vol]2.1 10 3/uL1.4-6.5FMercy Health St. Vincent Medical CenterNeutrophils/100 WBC Auto (Bld)on 86-51-9556Qhxakphqdpp/100 WBC (Bld)56.7 % 43.0-75.0[facility] ToledoNo Panel Informationon 14-43-5986Z- Reactive Protein, Quantitative<0.50 mg/dL<=0.50[facility] Eosinophils # (Auto)0.3 10 3/uL0.0-0.7FMercy Health St. Vincent Medical CenterImmature Granulocyte # (Auto)0.00 10 3/uL0.00-0.03[facility] Platelet mean volume Auto (Bld) [Entitic vol]on 03-57-5222Ugosllpw mean volume (Bld) [Entitic vol]9.4 fLLow9.5-13.5FMercy Health St. Vincent Medical CenterPlatelets Auto (Bld) [#/Vol]on 27-35-0365Cfskcxvgx (Bld) [#/Vol]217 10 3/tM244-690 [facility] ToledoRBC Auto (Bld) [#/Vol]on 38-17-9544ZTL (Bld) [#/Vol]3.85 10 6/uLLow4.20-5.40[facility]iance Hospitalerum or plasma anion gap determinationon 51-89-0873Gqdbs gap [Moles/Vol]10.2 mmol/LFMercy Health St. Vincent Medical CenterNo Panel Informationon 78-89-8064WQAIO_Iwfgtrkxa Clinic Implant Date05/22/2015[facility] HealthModel5076 CapSureFix [facility]CK[facility] PACEMAKER REMOTE CHECKon 55-83-1022OK Delay Adaptive Paced Minimum (ms)180 ms Summa HealthAV Delay Adaptive Sensed Minimum (ms)150 msCleveland ClinicAV Delay Adaptive StatusDISABLEDCleveland ClinicBattery Voltage (volts)2.92 V [facility] RA Pacing Amplitude (volts)1.5 VCleveland ClinicBrady RA Pacing PolarityBISumma HealthBrady RA Pacing Pulse Width (ms)0.4 msCleveland ClinicBrady RA Sensing Amplitude (mvolts)0.3 mVCleveland Olmsted Medical CenterBrady RA Sensing Blanking Period (ms)150 msCleveland ClinicBrady RA Sensing PolarityBISumma HealthBrady RA Sensing Refractory Period (ms)AutoCleveland ClinicBrady RV Pacing Amplitude (volts)2 VCleveland ClinicBrady RV Pacing PolarityBISumma Health Godfrey RV Pacing Pulse Width (ms)0.4 msCleveland ClinicBrady RV Sensing Amplitude (mvolts)0.9 mVCleveland ClinicBrady RV Sensing Blanking Period (ms)200 ms Summa HealthBrady RV Sensing PolarityBISumma HealthHysteresis Rate (bpm) DISABLEDSumma HealthLead1 MfgMDTSumma HealthLead2 MfMercy Health West Hospital LocationRVSumma HealthLocationRASumma HealthLower Rate (bpm)60 {beats}/minSumma HealthMax Sensor Rate (bmp)130 {beats}/minSumma Health [id number] COBOSOhioHealth-Device MfgMDTOhioHealth- Percent Pacing (A)99.48 %[facility]-Percent Pacing (V)0.27 %[facility]-PMT InterventionENABLEDCleveland [facility]-PVC InterventionENABLED [facility]-Rate Modulation Acceleration Yiyxzvis82 sClMagruder Memorial Hospital- Rate Modulation ADL Rate (bpm)100 {beats}/minOhioHealth-Rate Modulation DecelerationExerciseOhioHealth-Rate Modulation ThresholdMediumLow Summa HealthRA Bipolar Impedance [id number] ClinicRA Unipolar Impedance rxzh502gswLtimulvga ClinicRV Bipolar Impedance eofb873xuuCtlbdlgdc ClinicRV Unipolar Baawixkqn371oiaUcxokddbo ClinicSerial [id number] [facility] Medical Centererial [id number] ClinicSerial [id number] [facility] RA Capture Amplitude (volts)0.5 VCleveland ClinicThresh RA Capture Duration (ms)0.4 msCleveland ClinicThresh RA Sensing Amplitude (mvolts)3.125 mVCleveland Olmsted Medical CenterThresh RV Capture Amplitude (volts)0.875 V [facility] RV Capture Duration (ms)0.4 msCleveland ClinicThresh RV Sensing Amplitude (mvolts)11.875 mVCleveland ClinicTracking Rate (bpm)130 {beats}/minSumma Health03/15/2024 DUAL CHAMBER PACEMAKER REMOTE EVALUATION: PRESENTING EGM: [...] CARDIAC DATA AND REPORT, Scanned Documents section. Kaur ClinicCleveland ClinicAlbumin [Mass/volume] in Serum or Plasmaon 80-36-7209Ywyxuvg [Mass/Vol]3.5 g/dL2.9-4.4FMercy Health St. [facility] Center Basophils Auto (Bld) [#/Vol]on 48-65-4922Qiotdrigm (Bld) [#/Vol]0.0 10 3/uL 0.0-0.1FMercy Health St. Vincent Medical CenterBasophils/100 WBC Auto (Bld)on 91-77-2776Lugjjhxex/100 WBC (Bld)0.7 %0.2-2.0[facility] Eosinophils/100 WBC Auto (Bld)on 34-02-1939Ejzerfytajt/100 WBC (Bld)10.8 %High 0.9-7.0[facility] ToledoErythrocyte distribution width Auto (RBC) [Ratio]on 78-88-4349Seuyylwcwdk distribution width (RBC) [Ratio]13.5 % 11.0-15.0[facility] ToledoEstimated glomerular filtration rate (GFR) non- Americanon 27-23-4754UAG/1.73 sq M.predicted among non-blacks MDRD (S/P/Bld) [Vol rate/Area]34 mL/min/{1.73_m2}Low>=60[facility] ToledoGlobulin Calc (S) [Mass/Vol]on 83-44-3197Hedifevy (S) [Mass/Vol] 3.6 g/dLRegency Hospital ToledoHematocrit Auto (Bld) [Volume fraction] on 11-32-6509Fgheguwgnc (Bld) [Volume fraction]38.8 %36.0-48.0[facility] ToledoHemoglobin [Mass/volume] in Bloodon 99-25-1767Fadlxdrgxh (Bld) [Mass/Vol]11.9 g/dLLow12.0-16.0[facility] ToledoIgA [Mass/volume] in Serum or Plasmaon 99-13-5181KzC [Mass/Vol]265 mg/vK93-131 [facility] ToledoIgG [Mass/volume] in Serum or Plasmaon 37-06-7536AjN [Mass/Vol]911 mg/lI699-1406NubfjidiyRegency Hospital ToledoIgM [Mass/volume] in Serum or Plasmaon 75-03-6362XvK [Mass/Vol]64 mg/dY99-213 [facility] ToledoImmunoglobulin light chains.kappa.free [Mass/volume] in Serumon 73-54-6971Whhaluhcsgtjrn light chains.kappa.free (S) [Mass/Vol]44.7 mg/LAbnormal3.3-19.4FMercy Health St. [facility] Center Immunoglobulin light chains.kappa.free/Immunoglobulin light chains.lambda.free [Yanelis 40-46-1942Nptoxjastwojtm light chains.kappa.free/Immunoglobulin light chains.lambda.free (S) [Mass ratio]1.160.26-1.65[facility] ToledoComment on above:Performed at: [facility] [id number] Director: Junaid Sawyer PhD, Phone: [phone] Immunoglobulin light chains.lambda.free [Mass/volume] in Serum or Plasmaon 03-26-5695Ftscrvttarnchj light chains.lambda.free [Mass/Vol]38.7 mg/LAbnormal 5.7-26.3FMercy Health St. Vincent Medical CenterIron binding capacity [Mass/volume] in Serum or Plasmaon 25-26-5435Gczb binding capacity [Mass/Vol]338.0 ug/dL 250.0-450.0[facility] ToledoIron saturation [Mass Fraction] in Serum or Plasmaon 38-09-4081Rxup saturation [Mass fraction]7.7 %[facility] ToledoLaboratory - Chemistry and Chemistry - challengeon 10-59-7789Rnrzimf [Mass/Vol]3.3 g/dLLow3.4-5.0[facility] ALP [Catalytic activity/Vol]155 U/GNowg09-928JkgwnyuxtRegency Hospital Toledo ALT [Catalytic activity/Vol]21 U/G73-86SnmfxglapRegency Hospital ToledoAST [Catalytic activity/Vol]25 U/K53-74EcyxcpkmgRegency Hospital ToledoBilirubin [Mass/Vol]0.4 mg/dL0.2-1.0[facility] ToledoCalcium [Mass/Vol]9.0 mg/dL8.5-10.1FMercy Health St. Vincent Medical CenterChloride [Moles/Vol]106 mmol/L 98-107[facility] ToledoCO2 [Moles/Vol]21.4 mmol/L21.0-32.0 [facility] ToledoCobalamin (Vitamin B12) [Mass/Vol]495.0 pg/mL 193.0-986.0[facility] ToledoCreatinine [Mass/Vol]1.50 mg/dLHigh 0.55-1.02[facility] ToledoFerritin [Mass/Vol]19.0 ng/mL8.0-252.0 [facility] ToledoGFR/1.73 sq M.predicted MDRD (S/P/Bld) [Vol rate/Area]41 mL/min/{1.73_m2}Low>=60[facility] ToledoGlucose [Mass/Vol]113 mg/qAHdfq30-204MqdkadffkRegency Hospital ToledoIron [Mass/Vol] 26.0 ug/dLLow50.0-170.0[facility] ToledoPotassium [Moles/Vol]4.3 mmol/L3.5-5.1FMercy Health St. Vincent Medical CenterProtein [Mass/Vol]6.9 g/dL6.4-8.2 [facility] Hospitalodium [Moles/Vol]139 mmol/Y372-425FsgucrgvuRegency Hospital ToledoUrea nitrogen [Mass/Vol]25.0 mg/dLHigh7.0-18.0[facility] ToledoUrea nitrogen/Creatinine [Mass ratio]16.7 mg/mgRegency Hospital ToledoLaboratory - Hematology and Cell countson 03-03-2024 Immature granulocytes/100 WBC (Bld)0.0 %0.0-0.5FMercy Health St. Vincent Medical Center Leukocytes [#/volume] corrected for nucleated erythrocytes in Blood by Automated counon 72-99-0228SFA corrected for nucl RBC Auto (Bld) [#/Vol]2.8 10 3/uLLow 4.0-11.0[facility] ToledoLymphocytes Auto (Bld) [#/Vol]on 19-96-3774Yyfuknqsqyw (Bld) [#/Vol]0.8 10 3/uLLow1.2-3.8[facility] ToledoLymphocytes/100 WBC Auto (Bld)on 54-24-1654Drryhztaolp/100 WBC (Bld)27.6 %20.5-60.0[facility] HospitalH Auto (RBC) [Entitic mass]on 94-43-7598IJG (RBC) [Entitic mass]28.8 pg26.7-34.0[facility] ToledoMCHC Auto (RBC) [Mass/Vol]on 31-07-4201XWKM (RBC) [Mass/Vol]30.7 g/dL29.9-35.2FMercy Health St. Vincent Medical CenterMCV Auto (RBC) [Entitic vol]on 33-98-0237DSF (RBC) [Entitic vol]93.9 fL81.0-99.0[facility] ToledoMonocytes Auto (Bld) [#/Vol]on 98-05-7757Ifqivcwnm (Bld) [#/Vol]0.3 10 3/uL0.3-0.8[facility] ToledoMonocytes/100 WBC Auto (Bld)on 06-47-9019Sidjfvbok/100 WBC (Bld)9.7 %1.7-12.0[facility] Neutrophils Auto (Bld) [#/Vol]on 82-40-9187Rlsvshzmcmn (Bld) [#/Vol]1.4 10 3/uL 1.4-6.5FMercy Health St. Vincent Medical CenterNeutrophils/100 WBC Auto (Bld)on 56-56-3901Ieoaezuxssi/100 WBC (Bld)51.2 %43.0-75.0[facility] ToledoNo Panel Informationon 06-41-6938Uyidkpccegy # (Auto)0.3 10 3/uL0.0-0.7 [facility] ToledoFolate9.50 ng/mL8.60-58.90[facility] ToledoImmature Granulocyte # (Auto)0.00 10 3/uL0.00-0.03[facility] ToledoProtein Electrophoresis M-SpikeNot Observed g/dLNot ObservedRegency Hospital ToledoProtein Electrophoresis NoteComment. [facility] ToledoComment on above:Protein electrophoresis scan will follow via computer,mail, or stonecutter apprentice hand delivery.Platelet mean volume Auto (Bld) [Entitic vol]on 54-87-8083Ezpdquwp mean volume (Bld) [Entitic vol]9.4 fL Low9.5-13.5FMercy Health St. Vincent Medical CenterPlatelets Auto (Bld) [#/Vol]on 50-64-9609Mhzdxilyu (Bld) [#/Vol]203 10 3/lH525-635GneqxmlnwRegency Hospital ToledoProtein [Mass/volume] in Serum or Plasmaon 75-68-9196Mxnxboj [Mass/Vol]6.2 g/dL6.0-8.5FMercy Health St. Vincent Medical CenterRBC Auto (Bld) [#/Vol]on 03-03-2024 RBC (Bld) [#/Vol]4.13 10 6/uLLow4.20-5.40[facility] Hospitalerum globulin measurement (mass/volume)on 72-34-2851Uraejltj (S) [Mass/Vol]2.7 g/dL 2.2-3.9[facility] Hospitalerum or plasma albumin/globulin mass ratioon 35-20-4040Zwvacad/Globulin [Mass ratio]0.9 {ratio}[facility] ToledoAlbumin/Globulin [Mass ratio]1.3 {ratio}0.7-1.7FLutheran Hospitalerum or plasma alpha 1 globulin measurement by electrophoresis (mass/volume)on 99-55-3628Pgsxw 1 globulin Elph [Mass/Vol]0.3 g/dL0.0-0.4 [facility] Hospitalerum or plasma alpha 2 globulin measurement by electrophoresis (mass/volume)on 86-23-9502Ktmry 2 globulin Elph [Mass/Vol]0.7 g/dL0.4-1.0[facility] Hospitalerum or plasma anion gap determinationon 20-06-2882Wsukm gap [Moles/Vol]15.9 mmol/LFLutheran Hospitalerum or plasma beta globulin measurement by electrophoresis (mass/volume)on 12-78-7761Leot globulin Elph [Mass/Vol]1.0 g/dL0.7-1.3FLutheran Hospitalerum or plasma gamma globulin measurement by electrophoresis (mass/volume)on 76-19-5758Fvkkg globulin Elph [Mass/Vol]0.8 g/dL 0.4-1.8[facility] Hospitalerum or plasma immunoelectrophoresis interpretationon 66-10-2192Kgsdjfudpxmlzc IEP [Interp]Comment.[facility] ToledoComment on above:No monoclonality detected.Estimated glomerular filtration rate (GFR) non- Americanon 02-32-4290HWS/1.73 sq M.predicted among non-blacks MDRD (S/P/Bld) [Vol rate/Area]27 mL/min/{1.73_m2}>=60[facility] ToledoGlobulin Calc (S) [Mass/Vol]on 38-71-5674Cphkavsr (S) [Mass/Vol]3.7 g/dLRegency Hospital ToledoLaboratory - Chemistry and Chemistry - challengeon 55-39-6413Hquymlm [Mass/Vol]3.3 g/dL3.4-5.0[facility] ToledoALP [Catalytic activity/Vol]174 U/R25-062YhggmefgnRegency Hospital ToledoALT [Catalytic activity/Vol]24 U/G52-00AxqrysprlRegency Hospital ToledoAmylase [Catalytic activity/Vol]16 U/P70-767LvfzbclyfRegency Hospital ToledoAST [Catalytic activity/Vol]19 U/X00-82ArpzrayndRegency Hospital ToledoBilirubin [Mass/Vol]0.4 mg/dL0.2-1.0[facility] Calcium [Mass/Vol]8.6 mg/dL8.5-10.1FMercy Health St. Vincent Medical CenterChloride [Moles/Vol]107 mmol/H13-615LoieqsrjxRegency Hospital ToledoCO2 [Moles/Vol]26.8 mmol/L21.0-32.0[facility] ToledoCreatinine [Mass/Vol]1.81 mg/dL 0.55-1.02[facility] ToledoGFR/1.73 sq M.predicted MDRD (S/P/Bld) [Vol rate/Area]33 mL/min/{1.73_m2}>=60[facility] ToledoGlucose [Mass/Vol]85 mg/yN37-210YjdyykscmRegency Hospital ToledoLipase [Catalytic activity/Vol]13.0 U/L16.0-77.0[facility] ToledoPotassium [Moles/Vol]4.6 mmol/L3.5-5.1FMercy Health St. Vincent Medical CenterProtein [Mass/Vol] 7.0 g/dL6.4-8.2FLutheran Hospitalodium [Moles/Vol]143 mmol/L 136-145[facility] ToledoUrea nitrogen [Mass/Vol]25.0 mg/dL 7.0-18.0[facility] ToledoUrea nitrogen/Creatinine [Mass ratio] 13.8 mg/mgMercy Health Defiance Hospitalerum or plasma albumin/globulin mass ratioon 67-11-1445Udglyjz/Globulin [Mass ratio]0.9 {ratio}[facility] Hospitalerum or plasma anion gap determinationon 36-97-4424Hgezv gap [Moles/Vol]13.8 mmol/LFLutheran Hospitalerum or plasma cancer antigen 19-9 measurement (units/volume)on 94-62-8402Ragzca Ag 19-9 Qn13 [arb'U]/mL0-35[facility] ToledoComment on above:[employer] Electrochemiluminescence Immunoassay(ECLIA)Values obtained with different assay methods or kits cannotbe used interchangeably. Results cannot be interpreted asabsolute evidence of the presence or absence of malignantdisease.Performed at: [employer] [facility] [id number] Director: Junaid Sawyer PhD, Phone: [phone] Panel Informationon 78-24-7358PBYQA_Vfqjqswgd ClinicImplant Date05/22/2015[facility] HealthModel5076 CapSureFix NovusCleveland ClinicPACEMAKER CLINIC CHECKon 43-13-6700BK Delay Adaptive Paced Minimum (ms)180 msCleveland ClinicAV Delay Adaptive Sensed Minimum (ms)150 msCleveland ClinicAV Delay Adaptive Status DISABLEDSumma HealthBattery Voltage (volts)2.94 VCleveland ClinicBrady RA Pacing Amplitude (volts)1.5 VCleveland ClinicBrady RA Pacing PolarityBIUniversity Hospitals [facility] RA Pacing Pulse Width (ms)0.4 msCleveland ClinicBrady RA Sensing Amplitude (mvolts)0.3 mVCleveland ClinicBrady RA Sensing Blanking Period (ms)150 msCleveland ClinicBrady RA Sensing PolarityBISumma HealthBra RA Sensing Refractory Period (ms)AutoCleveland Olmsted Medical CenterBrady RV Pacing Amplitude (volts)2 V [facility] RV Pacing PolarityBIUniversity Hospitals [facility] RV Pacing Pulse Width (ms)0.4 msCleveland ClinicBrady RV Sensing Amplitude (mvolts)0.9 mV [facility] RV Sensing Blanking Period (ms)200 msCleveland Olmsted Medical CenterBrady RV Sensing PolarityMount St. Mary HospitalHysteresis Rate (bpm)DISABLEDSumma HealthLead1 MfgMDTSumma HealthLead2 MfMercy Health West HospitalLocationRV Summa HealthLocationRASumma HealthLower Rate (bpm)60 {beats}/min Summa HealthMax Sensor Rate (bmp)130 {beats}/minSumma HealthWraygpMvaqjH3TJ30 Advisa [facility]-Device [facility]-Percent Pacing (A)99.4 %[facility]-Percent Pacing (V)0.24 %[facility]-PMT InterventionENABLEDClakehealth beachwood medical centerand [facility]-PVC InterventionENABLEDCMercy Health Allen Hospital- Rate Modulation Acceleration Eaqprzzv71 sClMagruder Memorial Hospital-Rate Modulation ADL Rate (bpm)100 {beats}/minOhioHealth-Rate Modulation DecelerationExercise [facility]-Rate Modulation ThresholdMediumLowSumma HealthRA Bipolar Impedance ebpq032 [facility] Hospitaland [facility] CenterRA Unipolar Impedance dlqg479 [facility] Hospitaland ClinicRV Bipolar Impedance fpuf507 [facility] Hospitaland ClinicRV Unipolar Ajhlquppz840 Newark Hospitalerial [id number] ClinicSerial Number [id number] ClinicSerial [id number] ClinicThresh RA Capture Amplitude (volts)0.5 VCleveland ClinicThresh RA Capture Duration (ms)0.4 msCleveland ClinicThresh RA Sensing Amplitude (mvolts)1.5 mVCleveland Clinic Thresh RV Capture Amplitude (volts)0.75 VCleveland ClinicThresh RV Capture Duration (ms)0.4 msCleveland ClinicThresh RV Sensing Amplitude (mvolts)13.125 mV Summa HealthTracking Rate (bpm)130 {beats}/minSumma HealthBasophils Auto (Bld) [#/Vol]Ordered By: Niki Blades on 93-73-7115Xxnaaviod (Bld) [#/Vol]0.0 10*3/uL0.0-0.2FMercy Health St. Vincent Medical CenterBasophils/100 WBC Auto (Bld) Ordered By: Niki Blades on 77-29-0852Exvqnnaxm/100 WBC (Bld)0.2 %.[facility] ToledoCalcium [Mass/volume] in Serum or PlasmaOrdered By: Niki Blades on 26-96-6875Eqjkyfh [Mass/Vol]8.1 mg/dL8.6-10.3FMercy Health St. Vincent Medical CenterCarbon dioxide, total [Moles/volume] in Serum or Plasma Ordered By: Niki Blades on 35-48-5390OC2 [Moles/Vol]25.2 mmol/L21.0-31.0 [facility] ToledoChloride [Moles/volume] in Serum or Plasma Ordered By: Niki Blades on 78-09-8331Ovejebrw [Moles/Vol]111 mmol/L98-107 [facility] ToledoCreatinine [Mass/volume] in Serum or Plasma Ordered By: Niki Blades on 00-47-5915Xcfzdwkfze [Mass/Vol]1.43 mg/dL0.60-1.20 [facility] ToledoEosinophils Auto (Bld) [#/Vol]Ordered By: Niki Blades on 83-09-0185Hsnqvpodppg (Bld) [#/Vol]0.1 10*3/uL0.0-0.45 [facility] ToledoEosinophils/100 WBC Auto (Bld)Ordered By: Niki Blades on 57-56-5077Suxlqlpaxmg/100 WBC (Bld)1.7 %.[facility] ToledoErythrocyte distribution width Auto (RBC) [Ratio]Ordered By: Niki Blades on 72-29-9282Plwxndmyxuc distribution width (RBC) [Ratio]13.5 % 11.9-15.3FMercy Health St. Vincent Medical CenterGlucose [Mass/volume] in Serum or PlasmaOrdered By: Niki Blades on 74-75-9807Nravwsi [Mass/Vol]121 mg/mM07-004 [facility] ToledoComment on above:ADA recommended reference rangeRandom Glucose Reference Range is dependent on time and content of last meal. Glucose of more than 200 mg/dL in a nonstressed, ambulatory subject supports the diagnosisof Diabetes Mellitus.Hematocrit Auto (Bld) [Volume fraction]Ordered By: Niki Weeks on 97-77-8821Qrzemkmsuy (Bld) [Volume fraction]29.9 %34.0-46.4FMercy Health St. Vincent Medical CenterHemoglobin [Mass/volume] in BloodOrdered By: Niki Weeks on 43-42-9803Zdrwrggihs (Bld) [Mass/Vol]10.0 g/dL11.8-15.4FMercy Health St. Vincent Medical CenterLeukocytes [#/volume] corrected for nucleated erythrocytes in Blood by Automated coun Ordered By: Niki Weeks on 54-81-4385SCT corrected for nucl RBC Auto (Bld) [#/Vol]7.3 10*3/uL3.8-11.6FMercy Health St. Vincent Medical CenterLymphocytes Auto (Bld) [#/Vol]Ordered By: Niki Weeks on 30-59-1581Rxhewidlgit (Bld) [#/Vol] 0.9 10*3/uL1.00-4.8[facility] ToledoLymphocytes/100 WBC Auto (Bld)Ordered By: Niki Weeks on 51-28-8312Whnrbiwqcxv/100 WBC (Bld)11.8 %. [facility] ToledoMCH Auto (RBC) [Entitic mass]Ordered By: Niki Weeks on 00-35-0578BCG (RBC) [Entitic mass]31.9 pg24.7-34.3FMercy Health St. Vincent Medical CenterMCHC Auto (RBC) [Mass/Vol]Ordered By: Niki Weeks on 07-49-8717ZTAN (RBC) [Mass/Vol]33.5 g/dL32.0-35.0[facility] ToledoMCV Auto (RBC) [Entitic vol]Ordered By: Niki Weeks on 17-46-0934FWC (RBC) [Entitic vol]95.1 fE97-189JfxcyzsgyRegency Hospital ToledoMonocytes Auto (Bld) [#/Vol]Ordered By: Niki Blades on 68-48-9293Nfkkrlknw (Bld) [#/Vol]0.7 10*3/uL0.0-0.8[facility] ToledoMonocytes/100 WBC Auto (Bld) Ordered By: Niki Blades on 79-40-9673Dxqyqijou/100 WBC (Bld)9.2 %.[facility] ToledoNeutrophils Auto (Bld) [#/Vol]Ordered By: Niki Blades on 96-86-1940Ygxpofyfvig (Bld) [#/Vol]5.6 10*3/uL1.8-7.7FMercy Health St. Vincent Medical CenterNeutrophils/100 WBC Auto (Bld)Ordered By: Niki Blades on 99-85-1020Upcarzqjwhp/100 WBC (Bld)77.1 %.[facility] ToledoNo Panel InformationOrdered By: Niki Desi on 79-05-7926Eiqhejzhf GFR (CKD-EPI) 38.727 mL/MinRegency Hospital ToledoPharmacy Creatinine Clearance (Chem38.09[facility] ToledoNucleated erythrocytes [Presence] in Blood by Automated countOrdered By: Niki Weeks on 84-59-4270Ylazbmvnx RBC Auto Ql (Bld)0.4 /100{WBC}0-0.5FMercy Health St. Vincent Medical CenterPlatelet mean volume Auto (Bld) [Entitic vol]Ordered By: Niki Blades on 60-53-9455Ksalaumr mean volume (Bld) [Entitic vol]7.6 fL6.3-10.7FMercy Health St. Vincent Medical Center Platelets Auto (Bld) [#/Vol]Ordered By: Niki Blades on 56-45-7638Peglzkdyv (Bld) [#/Vol]147 10*3/jV129-029KcalqbhcnRegency Hospital ToledoPotassium [Moles/volume] in Serum or PlasmaOrdered By: Niki Rms on 08-05-2023 Potassium [Moles/Vol]4.4 mmol/L3.5-5.1FMercy Health St. Vincent Medical CenterRBC Auto (Bld) [#/Vol]Ordered By: Niki Blades on 98-34-9772VAU (Bld) [#/Vol]3.14 10*6/uL3.60-5.00[facility]iance Hospitalerum or plasma anion gap determinationOrdered By: Niki Blades on 90-81-5265Vyxuv gap [Moles/Vol]7.2 mmol/L6.0-15.0[facility] Hospitalodium [Moles/volume] in Serum or PlasmaOrdered By: Niki Blades on 70-58-0910Oywuhc [Moles/Vol]139 mmol/L 136-145[facility] ToledoUrea nitrogen [Mass/volume] in Serum or PlasmaOrdered By: [facility] Blades on 38-59-0194Qdhb nitrogen [Mass/Vol]25 mg/dL 7-25[facility] ToledoWBC Auto (Bld) [#/Vol]Ordered By: Niki Blades on 99-47-9835FJR (Bld) [#/Vol]7.3 10*3/uL3.8-11.6FMercy Health St. Vincent Medical CenterActivated partial thromboplastin time (aPTT) in platelet poor plasma by coagulation aOrdered By: Cj Gamboa on 12-92-6025qMWH Coag (PPP) [Time]44.3 s25.1-36.5FMercy Health St. Vincent Medical CenterComment on above:A hematocrit value greater than 55% may lead to inaccurate results in coagulation testing. Patientshaving hematocrit values >55% require a special collection tube for coagulation studies. Please contact the laboratory at [phone] for redraw instructions.INR in Platelet poor plasma by Coagulation assayOrdered By: Cj Gamboa on 36-44-9584FGQ Coag (PPP) [Relative time]2.1 {INR}[facility] ToledoComment on above:INR Therapeutic Range A) Pre- and Peroperative OAT started two weeks before surgery. NOT HIP SURGERY: 1.5 - 2.5 HIP SURGERY: 2 - 3B) Primary and secondary prevention of venous THROMBOSIS: 2 - 3C) Active venous thrombosis, pulmonary embolismand prevention of recurrent venous thrombosis: 2 - 3D) Prevention of arterial thromboembolismincluding patients with mechanical heart valves: 3 - 4.5Prothrombin time (PT)Ordered By: jC Gamboa on 57-49-4917BH Coag (PPP) [Time]24.8 s9.0-12.9[facility] ToledoComment on above:A hematocrit value greater than 55% may lead to inaccurate results in coagulation testing. Patientshaving hematocrit values >55% require a special collection tube for coagulation studies. Please contact the laboratory at [phone] for redraw instructions.Basophils Auto (Bld) [#/Vol] Ordered By: Niki Weeks on 87-44-4936Neihucvxc (Bld) [#/Vol]0.0 10*3/uL 0.0-0.2FMercy Health St. Vincent Medical CenterBasophils/100 WBC Auto (Bld)Ordered By: Niki Weeks on 47-56-1648Ctmigozvd/100 WBC (Bld)0.6 %.[facility] ToledoBilirubin Test strip Ql (U)Ordered By: Niki Weeks on 85-78-5874Oeamixsbr Ql (U)NegativeNegativeRegency Hospital Toledo Calcium [Mass/volume] in Serum or PlasmaOrdered By: Niki Weeks on 07-20-2023 Calcium [Mass/Vol]8.6 mg/dL8.6-10.3FMercy Health St. Vincent Medical CenterCarbon dioxide, total [Moles/volume] in Serum or PlasmaOrdered By: Niki Weeks on 00-53-1387DT5 [Moles/Vol]26.3 mmol/L21.0-31.0[facility] Chloride [Moles/volume] in Serum or PlasmaOrdered By: Niik Desi on 12-23-5815Aifwvncc [Moles/Vol]109 mmol/A39-477YzzsgkyhcRegency Hospital Toledo Color Auto (U)Ordered By: Niki Rms on 73-30-1269Jezfp (U)YellowYellow [facility] ToledoCreatinine [Mass/volume] in Serum or Plasma Ordered By: Niki Weeks on 63-93-8035Dwvysetsgk [Mass/Vol]1.52 mg/dL0.60-1.20 [facility]edoEosinophils Auto (Bld) [#/Vol]Ordered By: Niki Weeks on 14-04-9617Frpadpcfkis (Bld) [#/Vol]0.3 10*3/uL0.0-0.45 [facility]edoEosinophils/100 WBC Auto (Bld)Ordered By: Niki Weeks on 30-33-0767Fcrhetymgpp/100 WBC (Bld)4.9 %.[facility]edoErythrocyte distribution width Auto (RBC) [Ratio]Ordered By: Niki Weeks on 26-78-6373Xqewyucgdfu distribution width (RBC) [Ratio]13.5 % 11.9-15.3FMercy Health St. Vincent Medical CenterGlucose [Mass/volume] in Serum or PlasmaOrdered By: Niki Weeks on 64-10-9262Jtivesc [Mass/Vol]120 mg/iF10-116 [facility] ToledoComment on above:ADA recommended reference rangeRandom Glucose Reference Range is dependent on time and content of last meal. Glucose of more than 200 mg/dL in a nonstressed, ambulatory subject supports the diagnosisof Diabetes Mellitus.Hematocrit Auto (Bld) [Volume fraction]Ordered By: Niki Weeks on 94-67-3983Hnuynmeegt (Bld) [Volume fraction]38.3 %34.0-46.4FMercy Health St. Vincent Medical CenterHemoglobin [Mass/volume] in BloodOrdered By: Niki Weeks on 68-42-5382Gonholoplt (Bld) [Mass/Vol]12.6 g/dL11.8-15.4FMercy Health St. Vincent Medical CenterKetones Auto test strip (U) [Mass/Vol]Ordered By: Niki Weeks on 78-83-5009Xxvlssg (U) [Mass/Vol]NegativeNegativeRegency Hospital ToledoLeukocytes [#/volume] corrected for nucleated erythrocytes in Blood by Automated counOrdered By: Niki Weeks on 90-72-8692LVS corrected for nucl RBC Auto (Bld) [#/Vol]5.2 10*3/uL3.8-11.6FMercy Health St. Vincent Medical CenterLymphocytes Auto (Bld) [#/Vol] Ordered By: Niki Blades on 80-55-5619Kdujkjhzdhq (Bld) [#/Vol]0.7 10*3/uL 1.00-4.8Reg[facility] Hospital ToledoLymphocytes/100 WBC Auto (Bld)Ordered By: Niki Blades on 89-40-0051Atvkfxmopzl/100 WBC (Bld)13.8 %.[facility] Hospital ToledoMCH Auto (RBC) [Entitic mass]Ordered By: Niki Blades on 35-61-3953AKO (RBC) [Entitic mass]30.9 pg24.7-34.3FMercy Health St. Vincent Medical CenterMCHC Auto (RBC) [Mass/Vol]Ordered By: Niki Blades on 51-15-5401ISJZ (RBC) [Mass/Vol]33.0 g/dL32.0-35.0Reg[facility] Hospital ToledoMCV Auto (RBC) [Entitic vol]Ordered By: Niki Blades on 68-24-6574KMZ (RBC) [Entitic vol]93.7 dS65-773KgkkmztlvRegency Hospital ToledoMonocytes Auto (Bld) [#/Vol] Ordered By: Niki Blades on 30-90-2121Bafaawanu (Bld) [#/Vol]0.4 10*3/uL 0.0-0.8[facility] Hospital ToledoMonocytes/100 WBC Auto (Bld)Ordered By: Niki Blades on 11-90-2622Fqiudqvrs/100 WBC (Bld)6.9 %.[facility] Hospital ToledoNeutrophils Auto (Bld) [#/Vol]Ordered By: Niki Blades on 67-95-4690Vfavwilwozq (Bld) [#/Vol]3.8 10*3/uL1.8-7.7FMercy Health St. Vincent Medical CenterNeutrophils/100 WBC Auto (Bld)Ordered By: Niki Blades on 07-20-2023 Neutrophils/100 WBC (Bld)73.8 %.[facility] Hospital ToledoNitrite Test strip Ql (U)Ordered By: Niki Blades on 02-58-0327Gbdpxbm Ql (U)Negative NegativeRegency Hospital ToledoNo Panel InformationOrdered By: Niki Weeks on 61-54-7094Kwyjdgnxj GFR (CKD-EPI)35.992 mL/MinRegency Hospital ToledoPharmacy Creatinine Clearance (ChemN/AFMercy Health St. Vincent Medical CenterNucleated erythrocytes [Presence] in Blood by Automated countOrdered By: Niki Weeks on 86-02-8967Llyfgrzkz RBC Auto Ql (Bld)0.1 /100{WBC}0-0.5 [facility] Hospital ToledoPlatelet mean volume Auto (Bld) [Entitic vol] Ordered By: Niki Weeks on 19-16-1927Edshrcbr mean volume (Bld) [Entitic vol] 7.2 fL6.3-10.7FMercy Health St. Vincent Medical CenterPlatelets Auto (Bld) [#/Vol] Ordered By: Niki Weeks on 94-65-4603Fgenucbem (Bld) [#/Vol]194 10*3/uL 150-450Regency Hospital ToledoPotassium [Moles/volume] in Serum or PlasmaOrdered By: Niki Weeks on 54-48-7799Vdhwnsftk [Moles/Vol]4.6 mmol/L 3.5-5.1FMercy Health St. Vincent Medical CenterProtein Auto test strip (U) [Mass/Vol] Ordered By: Niki Weeks on 48-43-5640Yibhizf (U) [Mass/Vol]NegativeNegative [facility] ToledoRBC Auto (Bld) [#/Vol]Ordered By: Niki Weeks on 82-66-4727EWY (Bld) [#/Vol]4.09 10*6/uL3.60-5.00Mer[facility] Defiance Hospitalerum or plasma anion gap determinationOrdered By: Niki Weeks on 72-63-9806Thhrg gap [Moles/Vol]9.3 mmol/L6.0-15.0Mer[facility] Defiance Hospitalodium [Moles/volume] in Serum or PlasmaOrdered By: Niki Weeks on 36-98-9295Gcstcz [Moles/Vol]140 mmol/R893-345YvjthzhdoRegency Hospital Toledo Specific gravity Auto test strip (U) [Rel density]Ordered By: Niki Weeks on 33-26-7949Nqeofhjm gravity (U) [Rel density]1.0211.001-1.030Reg[facility] Hospital ToledoUrea nitrogen [Mass/volume] in Serum or PlasmaOrdered By: Niki Weeks on 91-55-2780Rmjw nitrogen [Mass/Vol]30 mg/dL7-25Reg[facility] Hospital ToledoUrine clarity by refractometry automatedOrdered By: Niki Weeks on 05-32-9747Aaqbyed Refractometry automated (U)ClearCleHolzer Medical Center – JacksonUrine glucose measurement by automated test strip (mass/volume) Ordered By: Niki Weeks on 36-94-0067Kizomxo Auto test strip (U) [Mass/Vol] Normal mg/dLNoProMedica Toledo HospitalUrine hemoglobin detection by automated test stripOrdered By: Niki Weeks on 56-69-3358Dkjrjesoxt Auto test strip Ql (U)NegativeNegJoint Township District Memorial HospitalUrine leukocyte esterase detection by automated test stripOrdered By: Niki Weeks on 46-47-7701Idfsqhwgo esterase Auto test strip Ql (U)NegativeNegJoint Township District Memorial HospitalUrobilinogen Auto test strip (U) [Mass/Vol]Ordered By: Niki Weeks on 40-71-4798Nnkasphxkuoz (U) [Mass/Vol]Normal mg/dLOhio State East HospitalWBC Auto (Bld) [#/Vol]Ordered By: Niki Weeks on 08-18-0150VXJ (Bld) [#/Vol]5.2 10*3/uL3.8-11.6FMercy Health St. Vincent Medical CenterpH Auto test strip (U)Ordered By: Niki Weeks on 29-73-4689tS (U)5.5 [pH]5.0-9.0Reg[facility] Hospital ToledoNo Panel Informationon [id number]_Tgppacgeu ClinicImplant Date05/22/2015[facility] HealthModel5076 CapSureFix NovusCleveland ClinicPACEMAKER REMOTE CHECKon 28-65-7433EY Delay Adaptive Paced Minimum (ms)180 msCleveland ClinicAV Delay Adaptive Sensed Minimum (ms)150 msCleveland ClinicAV Delay Adaptive StatusDISABLEDCleveland ClinicBattery Voltage (volts)2.94 VCleveland ClinicBrady RA Pacing Amplitude (volts)1.5 VCleveland ClinicBrady RA Pacing PolarityBISumma HealthBrady RA Pacing Pulse Width (ms)0.4 msCleveland ClinicBrady RA Sensing Amplitude (mvolts) 0.3 mVCleveland ClinicBrady RA Sensing Blanking Period (ms)150 msCleveland ClinicBrady RA Sensing PolarityBISumma HealthBrady RA Sensing Refractory Period (ms)AutoCleveland ClinicBrady RV Pacing Amplitude (volts)2 VCleveland ClinicBrady RV Pacing PolarityBISumma HealthBrady RV Pacing Pulse Width (ms) 0.4 msCleveland ClinicBrady RV Sensing Amplitude (mvolts)0.9 mVCleveland Clinic Godfrey RV Sensing Blanking Period (ms)200 msCleveland ClinicBrady RV Sensing PolarityBISumma HealthHysteresis Rate (bpm)DISABLEDSumma HealthLead1 Mfg MDTCleveland Olmsted Medical CenterLead2 MfDTSumma HealthLocationRVSumma Health LocationRASumma HealthLower Rate (bpm)60 {beats}/minSumma HealthMax Sensor Rate (bmp)130 {beats}/minAshtabula County Medical CenterelA2DR[address] COBOS [facility]-Device [facility]-Percent Pacing (A)99.76 % [facility]-Percent Pacing (V)0.11 %[facility]-PMT Intervention ENABLEDOhioHealth-PVC InterventionENABLEMansfield Hospital-Rate Modulation Acceleration Syladxpl12 sClMagruder Memorial Hospital-Rate Modulation ADL Rate (bpm)100 {beats}/minOhioHealth-Rate Modulation DecelerationExercise [facility]-Rate Modulation ThresholdMediumLowSumma HealthRA Bipolar Impedance btqa876 [facility]and ClinicRA Unipolar Impedance guld057 [facility] Montgomeryleveland ClinicRV Bipolar Impedance igws044 ohleveland ClinicRV Unipolar Tiwlbynii978 [facility]and ClinicSerial [id number] Woodwinds Health Campuserial Number [id number] ClinicSerial [id number] ClinicThresh RA Capture Amplitude (volts)0.5 VCleveland ClinicThresh RA Capture Duration (ms)0.4 msCleveland ClinicThresh RA Sensing Amplitude (mvolts)2.25 mVCleveland Clinic Thresh RV Capture Amplitude (volts)0.75 VCleveland ClinicThresh RV Capture Duration (ms)0.4 msCleveland ClinicThresh RV Sensing Amplitude (mvolts)12.875 mV Summa HealthTracking Rate (bpm)130 {beats}/minWasco ClinicCreatinine (Bld) [Mass/Vol]Ordered By: Broderick Howard on 47-92-0950Sqbwpxxzhl [Mass/Vol]1.6 mg/dL0.6-1.3FMercy Health St. Vincent Medical CenterComment on above:ER/ESD physician is notified/shown all ISTAT results.Critical values may be confirmed by laboratorytesting ifdeemed necessary by ER attending doctor.No Panel Information on [id number]_Adwssvyia ClinicImplant Date05/22/2015Summa HealthMod 5076 CapSureFix NovusCleveland ClinicPACEMAKER REMOTE CHECKon [id number] Delay Adaptive Paced Minimum (ms)180 msCleveland ClinicAV Delay Adaptive Sensed Minimum (ms)150 msCleveland ClinicAV Delay Adaptive StatusDISABLEDCleveland ClinicBattery Voltage (volts)2.95 VCleveland ClinicBrady RA Pacing Amplitude (volts)1.5 VCleveland ClinicBrady RA Pacing PolarityBISumma HealthBrady RA Pacing Pulse Width (ms)0.4 msCleveland ClinicBrady RA Sensing Amplitude (mvolts) 0.3 mVCleveland ClinicBrady RA Sensing Blanking Period (ms)150 msCleveland ClinicBrady RA Sensing PolarityBISumma HealthBrady RA Sensing Refractory Period (ms)AutoCleveland ClinicBrady RV Pacing Amplitude (volts)2 VCleveland ClinicBrady RV Pacing PolarityBISumma HealthBrady RV Pacing Pulse Width (ms) 0.4 msCleveland ClinicBrady RV Sensing Amplitude (mvolts)0.9 mVCleveland Clinic Godfrey RV Sensing Blanking Period (ms)200 msCleveland ClinicBrady RV Sensing PolarityBISumma HealthHysteresis Rate (bpm)DISABLEDSumma HealthLead1 Mfg MDTCleveland Olmsted Medical CenterLead2 MfgMDTSumma HealthLocationRVSumma Health LocationRASumma HealthLower Rate (bpm)60 {beats}/minCleveland ClinicMax Sensor Rate (bmp)130 {beats}/minSumma HealthVgdlxqRsvguT4QR[address] COBOS [facility]-Device MfgMDTOhioHealth-Percent Pacing (A)99.67 % [facility]-Percent Pacing (V)0.2 %[facility]-PMT Intervention ENABLEDOhio[facility]-PVC InterventionENABLEDCMercy Health Allen Hospital-Rate Modulation Acceleration Ufluampr17 sCleland Regions [facility]-Rate Modulation ADL Rate (bpm)100 {beats}/minOhioHealth-Rate Modulation DecelerationExercise [facility]-Rate Modulation ThresholdMediumLowSumma HealthRA Bipolar Impedance jplf579 ohHillcrest Medical Center – Tulsaand Olmsted Medical CenterRA Unipolar Impedance ozyt419 ohHillcrest Medical Center – Tulsaand ClinicRV Bipolar Impedance vqtw989 ohleveland Olmsted Medical CenterRV Unipolar Oabtjxaor374 ohMercy Health Defiance Hospital ClinicSerial [id number] ClinicSerial Number [id number] ClinicSerial [id number] ClinicThresh RA Capture Amplitude (volts)0.5 VCleveland ClinicThresh RA Capture Duration (ms)0.4 msCleveland ClinicThresh RA Sensing Amplitude (mvolts)2.25 mVCleveland Clinic Thresh RV Capture Amplitude (volts)0.875 VCleveland ClinicThresh RV Capture Duration (ms)0.4 msCleveland ClinicThresh RV Sensing Amplitude (mvolts)12.875 mV Summa HealthTracking Rate (bpm)130 {beats}/minSumma HealthNo Panel Informationon [id number]_Lbgtrstod ClinicImplant 05/22/2015[facility] HealthModel5076 CapSureFix NovusClakehealth beachwood medical centerand ClinicPACEMAKER REMOTE CHECKon [id number] Delay Adaptive Paced Minimum (ms)180 msCleveland ClinicAV Delay Adaptive Sensed Minimum (ms)150 msCleveland ClinicAV Delay Adaptive Status DISABLEDSumma HealthBattery Voltage (volts)2.96 VCleveland ClinicBrady RA Pacing Amplitude (volts)1.5 VCleveland ClinicBrady RA Pacing PolarityBISumma HealthBrady RA Pacing Pulse Width (ms)0.4 msCleveland ClinicBrady RA Sensing Amplitude (mvolts)0.3 mVCleveland ClinicBrady RA Sensing Blanking Period (ms)150 msCleveland ClinicBrady RA Sensing PolarityBISumma HealthBra RA Sensing Refractory Period (ms)AutoCleveland Olmsted Medical CenterBrady RV Pacing Amplitude (volts)2 V [facility] RV Pacing PolarityBIUniversity Hospitals [facility] RV Pacing Pulse Width (ms)0.4 msCleveland Olmsted Medical CenterBrady RV Sensing Amplitude (mvolts)0.9 mV [facility] RV Sensing Blanking Period (ms)200 msCleveland ClinicBrady RV Sensing PolarityBISumma HealthHysteresis Rate (bpm)DISABLEDSumma HealthLead1 MfgMDTSumma HealthLead2 MfMercy Health West HospitalLocationRV Summa HealthLocationRASumma HealthLower Rate (bpm)60 {beats}/min Summa HealthMax Sensor Rate (bmp)130 {beats}/minSumma HealthGgnzbcCtdzhJ5CZ08 Advisa [facility]-Device [facility]-Percent Pacing (A)99.43 %[facility]-Percent Pacing (V)0.17 %[facility]-PMT InterventionENABLEDCMercy Health Allen Hospital-PVC InterventionENABLEDCMercy Health Allen Hospital- Rate Modulation Acceleration Nlqhzbjg70 sClMagruder Memorial Hospital-Rate Modulation ADL Rate (bpm)100 {beats}/minOhioHealth-Rate Modulation DecelerationExercise [facility]-Rate Modulation ThresholdMediumLowSumma HealthRA Bipolar Impedance qsdd388 [facility] CenterRA Unipolar Impedance gbmy932 [facility] Medical CenterRV Bipolar Impedance haez433 [facility]and ClinicRV Unipolar Ikopgnwzf381 [facility] Hospitalerial [id number] ClinicSerial Number [id number] ClinicSerial [id number] ClinicThresh RA Capture Amplitude (volts)0.5 VCleveland ClinicThresh RA Capture Duration (ms)0.4 msCleveland ClinicThresh RA Sensing Amplitude (mvolts)1.875 mVCleveland Clinic Thresh RV Capture Amplitude (volts)0.75 VCleveland ClinicThresh RV Capture Duration (ms)0.4 msCleveland ClinicThresh RV Sensing Amplitude (mvolts)11.75 mV Summa HealthTracking Rate (bpm)130 {beats}/minSumma HealthNo Panel Informationon [id number]_Pqhlftkma ClinicImplant Date05/22/2015[facility] Centerel5076 CapSureFix NovusCuniversity hospitals [facility] ClinicPACEMAKER REMOTE CHECKon [id number] Delay Adaptive Paced Minimum (ms)180 msCleveland ClinicAV Delay Adaptive Sensed Minimum (ms)150 msCleveland ClinicAV Delay Adaptive Status DISABLEDSumma HealthBattery Voltage (volts)2.96 VCleveland ClinicBrady RA Pacing Amplitude (volts)1.5 VCleveland ClinicBrady RA Pacing PolarityBISumma HealthBra RA Pacing Pulse Width (ms)0.4 msCleveland ClinicBrady RA Sensing Amplitude (mvolts)0.3 mVCleveland ClinicBrady RA Sensing Blanking Period (ms)150 msCleveland ClinicBrady RA Sensing PolarityBIUniversity [facility] RA Sensing Refractory Period (ms)AutoCleveland [facility]sted Medical CenterBrady RV Pacing Amplitude (volts)2 V [facility] RV Pacing PolarityBIUniversity Hospitals [facility] RV Pacing Pulse Width (ms)0.4 msCleveland ClinicBra RV Sensing Amplitude (mvolts)0.9 mV [facility] RV Sensing Blanking Period (ms)200 msCleveland [facility]msted Medical CenterBrady RV Sensing PolarityBISumma HealthHysteresis Rate (bpm)DISABLEDWasco ClinicLead1 MfgMDTSumma HealthLead2 [facility] HospitalLocationRV Summa HealthLocationRASumma HealthLower Rate (bpm)60 {beats}/min Summa HealthMax Sensor Rate (bmp)130 {beats}/minSumma HealthCbaokrUpovpD7DC07 Advisa [facility]-Device [facility]-Percent Pacing (A)99.6 %[facility]-Percent Pacing (V)0.24 %[facility]-PMT InterventionENABLEDCMercy Health Allen Hospital-PVC InterventionENABLEGood Samaritan Hospitaland [facility]- Rate Modulation Acceleration Ksoxartx31 sClMagruder Memorial Hospital-Rate Modulation ADL Rate (bpm)100 {beats}/minOhioHealth-Rate Modulation DecelerationExercise [facility]-Rate Modulation ThresholdMediumLowSumma HealthRA Bipolar Impedance gcbo922 ohHill[facility] – Tulsaand [facility] Medical CenterRA Unipolar Impedance chnp780 ohHillcrest Medical Center – Tulsaand [facility]sted Medical CenterRV Bipolar Impedance utll800 [facility] CenterRV Unipolar Vszqmnqne011 [facility] Hospitalerial [id number] ClinicSerial Number [id number] ClinicSerial [id number] ClinicThresh RA Capture Amplitude (volts)0.5 VCleveland ClinicThresh RA Capture Duration (ms)0.4 msCleveland ClinicThresh RA Sensing Amplitude (mvolts)2.5 mVCleveland Clinic Thresh RV Capture Amplitude (volts)0.75 VCleveland ClinicThresh RV Capture Duration (ms)0.4 msCleveland ClinicThresh RV Sensing Amplitude (mvolts)12.125 mV Summa HealthTracking Rate (bpm)130 {beats}/minSumma HealthUS KIDNEYS BLADDERon [id number] KIDNEYS BLADDEREXAMINATION: US KIDNEYS BLADDER HISTORY: Chronic [...] Electronically authenticated by: EBEN BABCOCK Date: 2022-08-10 19:30NormGrand Lake Joint Township District Memorial HospitalUA RANDOM W/MICROSCOPICon [id number] SEENNormalNONE SEENUniversity Hospitals Samaritan Medical CenterComment on above:Performed By: #### UAMIC #### [facility] [address] [place] [address] Dr. Leah Montoya Ql (U)NegativeNormalNEGATIVEUniversity Hospitals Samaritan Medical Center Comment on above:Performed By: #### UAMIC #### [facility] [address] [address] [address] Leah NietoNONAldair SEENNormalNONE SEENUniversity Hospitals Samaritan Medical CenterComment on above:Performed By: #### UAMIC #### [facility] [address] [address] [address] Leah Chavez (U)CLEARNormalCLEARUniversity Hospitals Samaritan Medical CenterComment on above: Performed By: #### UAMIC #### [facility] [address] [address] [address] Leah Wilson (U)LT. YELLOWNormalYELLOWUniversity Hospitals Samaritan Medical CenterComment on above:Performed By: #### UAMIC #### [facility] [address] [address] [address] Leah FelipeCrystals LM Nom (Urine sed)NONE SEENNormalNONE SEENUniversity Hospitals Samaritan Medical CenterComment on above:Performed By: #### UAMIC #### [facility] [address] [address] [address] Lynn ChangEpithelial cells LM Ql (Urine sed)FEWAbnormalNONE SEEN /RAREUniversity Hospitals Samaritan Medical CenterComment on above:Performed By: #### UAMIC #### [facility] [address] [address] [address] Leah FelipeGlucose Ql (U)NegativeNormalNEGATIVEUniversity Hospitals Samaritan Medical CenterComment on above:Performed By: #### UAMIC #### [facility] [address] [address] [address] Leah FelipeHemoglobin Ql (U)NegativeNormalNEGATIVESt. Mary'S [facility] on above:Performed By: #### UAMIC #### [facility] [address] [address] [address] Leah FelipeKetones Ql (U)NegativeNormalNEGATIVEUniversity Hospitals Samaritan Medical CenterComment on above:Performed By: #### UAMIC #### [facility] [address] [address] [address] Leah FelipeLEUKOCYTESNegativeNormalNEGATIVEUniversity Hospitals Samaritan Medical CenterComment on above:Performed By: #### UAMIC #### [facility] [address] [place] [address] Dr. Leah Chavez SEENNormalNONE SEENThe Marion HospitalComment on above:Performed By: #### UAMIC #### [facility] [address] [place] [address] Dr. Leah Quintanilla Ql (U)NegativeNormalNEGATIVEThe Mantua HospitalComment on above:Performed By: #### UAMIC #### [facility] [address] [place] [address] Dr. Leah FelipepH (U)6.0 [pH]Normal5-9The Marion HospitalComment on above: Performed By: #### UAMIC #### [facility] [address] [place] [address] Dr. Leah Reed SEENAbnormal0-2The Marion HospitalComment on above: Performed By: #### UAMIC #### [facility] [address] [place] [address] Dr. Leah FelipeSPEC GRAVITY1.621Kktaut7.005-<=1.025The Marion HospitalComment on above:Performed By: #### UAMIC #### [facility] [address] [place] [address] Dr. Leah Byrnes PROTEINNegativeNormalNEGATIVE/ TRACEThe [facility] Comment on above:Performed By: #### UAMIC #### [facility] [address] [place] [address] Dr. Leah Celestin Qn (U)0.2 {Lin'U}/dLNormal0.2 - 1.0The Marion HospitalComment on above:Performed By: #### UAMIC #### [facility] [address] [place] [address] Dr. Leah FelipeWBC0-2AbnormalNONE SEENThe Marion HospitalComment on above: Performed By: #### UAMIC #### [facility] [address] [place] [address] Dr. Leah Devi T PROTEIN CREAT RATIOon 97-35-2225Fostojt (U) [Mass/Vol] 30.2 mg/dLCritically high<=12.0The Marion HospitalComment on above:Performed By: #### URTPCR #### [facility] [address] [place] [address] Dr. Leah Forbes PROT CREAT RAT0.19NormalThe Marion HospitalComment on above: Performed By: #### URTPCR #### [facility] [address] [place] [address] Dr. Leah Devi RURWY770.67 mg/wILezizm97.00-300.00[facility] Comment on above:Performed By: #### URTPCR #### [facility] [address] [place] [address] Dr. Leah Mcpherson AUTO DIFFon [id number] #0.0 103/ulNormal0.0-0.1The Marion HospitalComment on above:Performed By: #### CBC #### [facility] [address] [place] [address] Dr. Leah Leroysophils/100 WBC (Bld)0.6 %Normal0.2-2.0[facility] Comment on above:Performed By: #### CBC #### [facility] [address] [place] [address] Dr. Leah Kidd #0.3 103/ulNormal0.0-0.7The Marion HospitalComment on above: Performed By: #### CBC #### [facility] [address] [place] [address] Dr. Leah Brambilaosinophils/100 WBC (Bld)5.5 %Normal0.9-7.0[facility] Comment on above:Performed By: #### CBC #### [facility] [address] [place] [address] Dr. Leah Brambilarythrocyte distribution width (RBC) [Ratio]12.5 %Zezbxa94.0-15.0 The Marion HospitalComment on above:Performed By: #### CBC #### [facility] [address] [address] [address] Leah FelipeHematocrit (Bld) [Volume fraction]39.2 %Xseawi71.0-48.0The Marion HospitalComment on above:Performed By: #### CBC #### [facility] [address] [place] [address] Dr. Leah FelipeHemoglobin (Bld) [Mass/Vol]12.5 g/yEInsiky42.0-16.0The Marion HospitalComment on above:Performed By: #### CBC #### [facility] [address] [place] [address] Dr. Leah FelipeIG #0.01 10e3/ulNormal0.00-0.03The Marion HospitalComment on above:Performed By: #### CBC #### [facility] [address] [place] [address] Dr. Leah FelipeIG %0.2 %Normal0.0-0.5The Marion HospitalComment on above: Performed By: #### CBC #### [facility] [address] [place] [address] Dr. Leah Chery #0.8 103/ulCritically low1.2-3.8The [facility] Comment on above:Performed By: #### CBC #### [facility] [address] [place] [address] Dr. Leah Cutlermphocytes/100 WBC (Bld)16.0 %Critically low20.5-60.0The Marion HospitalComment on above:Performed By: #### CBC #### [facility] [address] [place] [address] Dr. Leah FelipeMANUAL DIFF REQNONormalThe Marion HospitalComment on above: Performed By: #### CBC #### [facility] [address] [place] [address] Dr. Leah Penn (RBC) [Entitic mass]30.9 lbSepmie11.7-34.0The Marion HospitalComment on above:Performed By: #### CBC #### [facility] [address] [address] [address] Leah ReedHC (RBC) [Mass/Vol]31.9 g/nXYuefqx36.9-35.2The Marion HospitalComment on above:Performed By: #### CBC #### [facility] [address] [place] [address] Dr. Leah ReedV (RBC) [Entitic vol]97.0 oXOqgzqr88.0-99.0The Marion HospitalComment on above:Performed By: #### CBC #### [facility] [address] [place] [address] Dr. Leah Lora #0.4 103/ulNormal0.3-0.8The [facility] HospitalComment on above:Performed By: #### CBC #### [facility] [address] [place] [address] Dr. Leah Kaminskiocytes/100 WBC (Bld)8.7 %Normal1.7-12.0[facility] Comment on above:Performed By: #### CBC #### [facility] [address] [place] [address] Dr. Leah Morel #3.4 103/ulNormal1.4-6.5The [facility] HospitalComment on above:Performed By: #### CBC #### [facility] [address] [place] [address] Dr. Leah Jimutrophils/100 WBC (Bld)69.0 %Lksjhx48.0-75.0The [facility] HospitalComment on above:Performed By: #### CBC #### [facility] [address] [place] [address] Dr. Leah Aguilarlet mean volume (Bld) [Entitic vol]9.1 fLCritically low 9.5-13.5The [facility] HospitalComment on above:Performed By: #### CBC #### [facility] [address] [place] [address] Dr. Leah FelipePLT196 103/plYsekvb151-576Dse Marion HospitalComment on above: Performed By: #### CBC #### [facility] [address] [address] [address] Leah FelipeRBC4.04 106/ulCritically low4.20-5.40The [facility] HospitalComment on above:Performed By: #### CBC #### [facility] [address] [address] [address] Leah FelipeWBC5.0 103/ulNormal4.0-11.0The [facility] HospitalComment on above: Performed By: #### CBC #### [facility] [address] [address] [address] Leah FelipePROF CHEM 8 (BAS METB)on 88-54-8054Jnlfd gap [Moles/Vol]9.8 mmol/LNormalThe Marion HospitalComment on above:Performed By: #### BMP, TSH #### [facility] [address] [place] [address] Dr. Leha FelipeCalcium [Mass/Vol]8.2 mg/dLCritically low8.5-10.1The [facility] Hospitalment on above:Performed By: #### BMP, TSH #### [facility] [address] [place] [address] Dr. Leah FelipeChloride [Moles/Vol]107 mmol/CIuhowl01-410Uss [facility] Comment on above:Performed By: #### BMP, TSH #### [facility] [address] [address] [address] Leah FelipeCO2 [Moles/Vol]26.4 mmol/NSxkbdl18.0-32.0[facility] Comment on above:Performed By: #### BMP, TSH #### [facility] [address] [address] [address] Leah FelipeCreatinine [Mass/Vol]1.53 mg/dLCritically high0.55-1.02[facility] Hospitalment on above:Performed By: #### BMP, TSH #### [facility] [address] [address] [address] Lynn ChangEGFR-AF VLBRBILZ96 mL/min/1.13e5Wudqcmudco low>=60The [facility] HospitalComment on above:Performed By: #### BMP, TSH #### [facility] [address] [place] [address] Dr. Leah BrambilaGFR-NON AF EHNTKQMI87 mL/min/1.40q7Qocnbjsmuu low>=60The [facility] HospitalComment on above:Performed By: #### BMP, TSH #### [facility] [address] [place] [address] Dr. Leah FelipeGlucose [Mass/Vol]108 mg/dLCritically ulzl14-618Teg [facility] HospitalComment on above:Performed By: #### BMP, TSH #### [facility] [address] [place] [address] Dr. Leah FelipePotassium [Moles/Vol]4.2 mmol/LNormal3.5-5.1[facility] Comment on above:Performed By: #### BMP, TSH #### [facility] [address] [place] [address] Dr. Leah Lindium [Moles/Vol]139 mmol/IJsbuix783-113Pdk [facility] Comment on above:Performed By: #### BMP, TSH #### [facility] [address] [place] [address] Dr. Leah FelipeUrea nitrogen [Mass/Vol]26.0 mg/dLCritically high7.0-18.0The [facility] HospitalComment on above:Performed By: #### BMP, TSH #### [facility] [address] [place] [address] Dr. Leah Muñoz nitrogen/Creatinine [Mass ratio]17.0 mg/mgNormalThe Marion HospitalComment on above:Performed By: #### BMP, TSH #### [facility] [address] [place] [address] Dr. Leah Freed 29-95-1365HDX1.650 uIU/mLNormal0.358-3.740The [facility] HospitalComment on above:Performed By: #### BMP, TSH #### [facility] [address] [place] [address] Dr. Leah FelipeVITAMIN B12on 82-73-0289Stutrwdic (Vitamin B12) [Mass/Vol]378.0 pg/jPHzmspf022.0-986.0The [facility] HospitalComment on above:Performed By: #### VITB12 #### [facility] [address] [address] [address] Leah FelipeMG MAMM SCREEN 3D FAVIOLA CADon [id number] MAMM SCREEN 3D FAVIOLA CAD Patient: CASSI RODRIGEZ Exam Date: 07/29/2022 : 1950 Gender:F Ordering : DR BRODERICK HOWARD D.O. Admission #: [id number] Family : Order #: [id number] CLICK HERE TO VIEW EXAM RADIOLOGY REPORT [...] pancreatic cancer at age 64. LOCATION: [facility] BREAST COMPOSITION: Heterogeneously dense,which may obscure [...] by: Eben Babcock MD on 07/29/2022 at 11:19[facility] Medical CenterCB panel Auto (Bld)on 95-82-8542Usicyycuhnh distribution width (RBC) [Ratio]12.5 % Hvrevn08.5-15.0Avon HospitalComment on above:Order Comment: Specimen Type: BLOOD SPECIMEN Ordering Facility: [facility] Address: [address] [place], [place] [address]Performed By: #### 25797-1 #### [facility] [place] [id number] [address] [place] [address] [facility] EASTHematocrit (Bld) [Volume fraction]39.3 % Lniekj66.0-46.0Av HospitalComment on above:Order Comment: Specimen Type: BLOOD SPECIMEN Ordering Facility: [facility] Address: [address] [place], [place] [id number] By: #### 95472-9 #### [facility] [place] [id number] [address] [place] [address] [facility] EASTHemoglobin (Bld) [Mass/Vol]12.5 g/dL Jokqar80.5-15.5Avo HospitalComment on above:Order Comment: Specimen Type: BLOOD SPECIMEN Ordering Facility: [facility] Address: [address] [place], [place] [id number] By: #### 39993-5 #### [facility] [place] [id number] [address] [place] [address] [facility] (RBC) [Entitic mass]31.3 pgNormal 26.0-34.0Av HospitalComment on above:Order Comment: Specimen Type: BLOOD SPECIMEN Ordering Facility: [facility] Address: [address] [place], [place] [id number] By: #### 02384-6 #### [facility] [place] [id number] [address] [place] [address] [facility] (RBC) [Mass/Vol]31.8 g/dLNormal 30.5-36.0Av HospitalComment on above:Order Comment: Specimen Type: BLOOD SPECIMEN Ordering Facility: [facility] Address: [address] [place], [place] [id number] By: #### 61015-8 #### [facility] [place] [id number] [address] [place] [address] [facility]ITALMCV (RBC) [Entitic vol]98.5 fLNormal 80.0-100.0Avon HospitalComment on above:Order Comment: Specimen Type: BLOOD SPECIMEN Ordering Facility: [facility] Address: [address] [place], [place] [address]Performed By: #### 66671-0 #### [facility] CLIA [id number] [address] [place] [address] UNITED [facility] AMERICANucleated RBC (Bld) [#/Vol]10*3/uLNormal <0.01Avon HospitalComment on above:Order Comment: Specimen Type: BLOOD SPECIMEN Ordering Facility: [facility] Address: [address] [place], [place] [address]Performed By: #### 70413-0 #### [facility] [place] [id number] [address] OF AMERICAPlatelet mean volume (Bld) [Entitic vol] 9.5 fLNormal9.0-12.7Avon HospitalComment on above:Order Comment: Specimen Type: BLOOD SPECIMEN Ordering Facility: [facility] Address: [address] [place], [place] [address]Performed By: #### 46489-0 #### [facility] [place] [id number] [address] [place] [address] [place] AMERICAPlatelets (Bld) [#/Vol]214 10*3/uLNormal 150-400Av HospitalComment on above:Order Comment: Specimen Type: BLOOD SPECIMEN Ordering Facility: [facility] Address: [address] [place], [place] [id number] By: #### 59170-5 #### [facility] [place] [id number] [address] [place] [address] [place] AMERICARBC (Bld) [#/Vol]3.99 10*6/uLNormal 3.90-5.20Av HospitalComment on above:Order Comment: Specimen Type: BLOOD SPECIMEN Ordering Facility: [facility] Address: [address] [place], [place] [address]Performed By: #### 93946-0 #### [facility] [place] [id number] [address] OF [facility] LODI HOSPITALWBC (Bld) [#/Vol]5.85 10*3/uLNormal 3.70-11.00Avon HospitalComment on above:Order Comment: Specimen Type: BLOOD SPECIMEN Ordering Facility: [facility] Address: [address] [place], [place] [address]Performed By: #### 94594-0 #### [facility] [place] [id number] OF [facility] LODI HOSPITALErythrocyte distribution width (RBC) [Ratio]12.5 %11.5 - 15.0 %[facility]ma HealthHematocrit (Bld) [Volume fraction]39.3 %36.0 - 46.0 %[facility]ma HealthHemoglobin (Bld) [Mass/Vol]12.5 g/dL11.5 - 15.5 g/dLGrant HospitalH (RBC) [Entitic mass]31.3 pg26.0 - 34.0 pgClevelMonticello HospitalHC (RBC) [Mass/Vol]31.8 g/dL30.5 - 36.0 g/dLGrant HospitalV (RBC) [Entitic vol]98.5 fL80.0 - 100.0 fLCleveland ClinicNucleated RBC (Bld) [#/Vol] <0.01 k/[facility] Health CenterPlatelet mean volume (Bld) [Entitic vol]9.5 fL9.0 - 12.7 fLCleveland ClinicPlatelets (Bld) [#/Vol]214 10*3/uL150 - 400 k/[facility] Health CenterRBC (Bld) [#/Vol]3.99 10*6/uL3.90 - 5.20 m/[facility] Health CenterWBC (Bld) [#/Vol]5.85 10*3/uL3.70 - 11.00 k/[facility] Health CenterTSH BLDon [id number] Qn 1.890 m[IU]/L0.270 - 4.200 mIU/LCHolzer Health System SerPl-aCncon 21-07-7073WYA Qn1.890 m[IU]/LNormal0.270-4.200Wild Rose HospitalComment on above:Order Comment: Specimen Type: BLOOD SPECIMEN Ordering Facility: [facility] Address: [address] [place] [id number] By: #### 3016-3 #### [facility] CLIA [id number] [place] [address] [place] Vital Signs Date TimeVital SignValuePerforming HewziklraOumgmyna13-76-7570 08:58-0400Body .48 cmBenjamin Ball DO Work Phone: [phone]10-27-2025 08:58-0400 Body mass index (BMI) [Ratio]32.5 kg/l9Ocjrvole Ball DO Work Phone: [phone])[address] [place], [place] 5265810-27-2025 08:58-0400 Body .9 kgBenjamin Ball DO Work Phone: 1(681)[address] [place], [place] 5265810-14-2025 09:49-0400 Body kjcuvr750.48 cmBenjamin Ball DO Work Phone: 1(776)[address] [place], [place] 5265810-14-2025 09:49-0400 Body mass index (BMI) [Ratio]33.5 kg/o6Jzhoxmlo Ball DO Work Phone: 1(723)[address] [place], [place] 5265810-14-2025 09:49-0400 Body kgBenjamin Ball DO Work Phone: 1(394)[address] [place], [place] 5265810-14-2025 09:49-0400 Diastolic blood mm[Hg]Broderick Ball DO Work Phone: [phone]10-14-2025 09:49-0400 Heart rate67 /minBenjamin Ball DO Work Phone: 1(887)[address] [place], [place] 5265810-14-2025 09:49-0400 Systolic blood iyqfmxfi992 mm[Hg]Broderick Ball DO Work Phone: [phone])[address] [place], [place] 5265810-01-2025 09:41-0400 Body .48 cmBenjamin Ball DO Work Phone: [phone])[address] [place], [place] 5265810-01-2025 09:41-0400 Body mass index (BMI) [Ratio]33.5 kg/z6Ctszthqe Ball DO Work Phone: 1(419)[address] [place], [place] 5265810-01-2025 09:41-0400 Body .5 [degF]Broderick Ball DO Work Phone: [phone])[address] [place], [place] 5265810-01-2025 09:41-0400 Body .23 kgBenjamin Ball DO Work Phone: [phone])[address] [place], [place] 5265810-01-2025 09:41-0400 Diastolic blood zagooqmw61 mm[Hg]Broderick Ball DO Work Phone: 1(419)[address] [place], [place] 5265810-01-2025 09:41-0400 Heart rate75 /minBenjamin Ball DO Work Phone: [phone])[address] [place], [place] 5265810-01-2025 09:41-0400 Respiratory rate18 /minBenjamin Ball DO Work Phone: [phone])[address] [place], [place] 5265810-01-2025 09:41-0400 SaO2% (BldA) [Mass fraction]98 %Broderick Ball DO Work Phone: 1(419)[address] [place], [place] 5265810-01-2025 09:41-0400 Systolic blood kfqdnjal825 mm[Hg]Broderick Ball DO Work Phone: [phone])[address] [place], [place] 5265809-17-2025 07:23-0400 Body ijzirn425.48 cmBenjamin Ball DO Work Phone: [phone])[address] [place], [place] 5265809-17-2025 07:23-0400 Body .18 kgBenjamin Ball DO Work Phone: 1419)[address] [place], [place] 5265809-03-2025 09:45-0400 Body emefyq370.5 Keanu Reilly MD Work Phone: [facility]09-03-2025 09:45-0400Body mass index (BMI) [Ratio]35.12 kg/r2NwemaRanda Reilly MD Work Phone: [phone]09-03-2025 09:45-0400Body kkpahy23.1 kgRanda Reilly MD Work Phone: [facility]09-03-2025 09:45-0400Diastolic blood hrekszth57 mm[Hg]Randa Reilly MD Work Phone: [phone]09-03-2025 09:45-0400Heart rate82 /min Randa Reilly MD Work Phone: [phone]09-03-2025 09:45-0400Systolic blood aozguzux039 mm[Hg]Randa Reilly MD Work Phone: [phone]08-18-2025 14:58-0400Body tdfabo770.48 cmBenjamin Ball DO Work Phone: [phone])[address]08-18-2025 14:58-0400 Body mass index (BMI) [Ratio]34.7 kg/v3Vjwekjar Ball DO Work Phone: [phone])[address]08-18-2025 14:58-0400 Body .18 kgBenjamin Ball DO Work Phone: 1(836)211-[address] [place], [place] 5948608-18-2025 14:58-0400 Diastolic blood iytspqqg42 mm[Hg]Broderick Ball DO Work Phone: 1(889)392-[address] [place], [place] 5948608-18-2025 14:58-0400 Heart rate82 /minBenjamin Ball DO Work Phone: 1(048)978-[address] [place], [place] 5948608-18-2025 14:58-0400 Respiratory rate12 /minBenjamin Ball DO Work Phone: 1(258)558-[address] [place], [place] 5948608-18-2025 14:58-0400 Systolic blood zrlctozl157 mm[Hg]Broderick Ball DO Work Phone: [facility]07-07-2025 08:03-0400 Body mass index (BMI) [Ratio]35.19 kg/k4Esopiqmr Doher DO Work Phone: [facility]07-07-2025 08:03-0400Body tniovc46.27 kgNicholas Doher DO Work Phone: [facility]07-07-2025 08:03-0400Diastolic blood jrhddlui76 mm[Hg]Elian Doher DO Work Phone: [facility]07-07-2025 08:03-0400Systolic blood omrqoyre805 mm[Hg]Elian Doher DO Work Phone: [facility]05-27-2025 11:10-0400Body padeiq663.5 Keanu Reilly MD Work Phone: [phone]05-27-2025 11:10-0400Body mass index (BMI) [Ratio]34.52 kg/y5OkbwiRanda Reilly MD Work Phone: [phone]05-27-2025 11:10-0400Body piblaw20.6 kgRanda Reilly MD Work Phone: [phone]05-27-2025 11:10-0400Diastolic blood ulwmukhg85 mm[Hg]Randa Reilly MD Work Phone: [phone]05-27-2025 11:10-0400Heart rate86 /min Randa Reilly MD Work Phone: [phone]05-27-2025 11:10-0400Systolic blood wzqqwerq044 mm[Hg]Randa Reilly MD Work Phone: [phone]04-10-2025 10:40-0400Body zkqcyu943.48 cmBenjamin Ball DO Work Phone: [facility]04-10-2025 10:40-0400 Body mass index (BMI) [Ratio]36.1 kg/i6Rogwogjq Ball DO Work Phone: [phone])[address] [place], [place] 5265804-10-2025 10:40-0400 Body plskjkaeklw78.9 [degF]Broderick Ball DO Work Phone: [phone])[address] [place], [place] 5265804-10-2025 10:40-0400 Body geomat80.58 kgBenjamin Ball DO Work Phone: 1(419)[address] [place], [place] 5265804-10-2025 10:40-0400 Diastolic blood zmqyhxrg22 mm[Hg]Broderick Ball DO Work Phone: 1419)[address] [place], [place] 5265804-10-2025 10:40-0400 Heart rate76 /minBenjamin Ball DO Work Phone: 1419)[address] [place], [place] 5265804-10-2025 10:40-0400 Respiratory rate16 /minBenjamin Ball DO Work Phone: 1(419)[address] [place], [place] 5265804-10-2025 10:40-0400 SaO2% (BldA) [Mass fraction]98 %Broderick Ball DO Work Phone: 1419)[address] [place], [place] 5265804-10-2025 10:40-0400 Systolic blood meiqqasw827 mm[Hg]Broderick Ball DO Work Phone: 1(169)[address] [place], [place] 5265804-09-2025 13:53-0400 Body rtjyyr557.48 cmBenjamin Ball DO Work Phone: [phone])[address] [place], [place] 5265804-09-2025 13:53-0400 Body mass index (BMI) [Ratio]34.5 kg/j2Cpquxbfk Ball DO Work Phone: 1419)[address] [place], [place] 5265804-09-2025 13:53-0400 Body suociz17.72 kgBenjamin Ball DO Work Phone: 1419)[address] [place], [place] 5265804-09-2025 13:53-0400 Diastolic blood qhuxnogo11 mm[Hg]Broderick Ball DO Work Phone: [phone]04-09-2025 13:53-0400 Heart rate75 /minBenjamin Ball DO Work Phone: [facility]04-09-2025 13:53-0400 SaO2% (BldA) [Mass fraction]100 %Broderick Ball DO Work Phone: [facility]04-09-2025 13:53-0400 Systolic blood mm[Hg]Broderick Ball DO Work Phone: [facility]02-21-2025 11:51-0500 Body bguiop389.5 Jace Mayfield AVIATION ELECTRONIC WARFARE OPERATOR.[facility] Work Phone: [phone] Health HamiltonCvuxfw11-23-1509 11:51-0500Body mass index (BMI) [Ratio]34.96 kg/p6MmgcqnSvitlana Mayfield AVIATION ELECTRONIC WARFARE OPERATOR.COSTUMED CHARACTER Work Phone: [phone] Health HamiltonPztyav68-38-3636 11:51-0500Body .7 kgSvitlana Mayfield AVIATION ELECTRONIC WARFARE OPERATOR.COSTUMED CHARACTER Work Phone: [phone] Health HamiltonIevkea06-72-9340 11:51-0500Diastolic blood kigtmeav86 mm[Hg]Svitlana Mayfield AVIATION ELECTRONIC WARFARE OPERATOR.COSTUMED CHARACTER Work Phone: [phone] Health HamiltonGbzqdb87-13-0498 11:51-0500Heart rate86 /min Svitlana Mayfield AVIATION ELECTRONIC WARFARE OPERATOR.COSTUMED CHARACTER Work Phone: [phone] Health HamiltonRosfbw08-71-4387 11:51-0500Systolic blood xngzcyvz610 mm[Hg]Svitlana Mayfield AVIATION ELECTRONIC WARFARE OPERATOR.COSTUMED CHARACTER Work Phone: [phone] Health HamiltonQlcpmt05-30-5658 13:55-0500Body xnrhof405.5 Omar Villar MD, PhD Work Phone: [phone] Health Lorain HospitalKmfdxz98-08-2299 13:55-0500Body mass index (BMI) [Ratio]35.08 kg/d7KloruzAlejandro Villar MD, PhD Work Phone: [phone] beachwood medical centerand Yczffp70-71-5743 13:55-0500Body ryaaff04 kg Alejandro Villar MD, PhD Work Phone: [phone] Health HamiltonJmunmp54-33-6170 13:55-0500Diastolic blood urhtrgyx05 mm[Hg]Alejandro Villar MD, PhD Work Phone: cKettering Health HamiltonYtzftt22-72-3832 13:55-0500Heart rate86 /min Alejandro Villar MD, PhD Work Phone: [phone] beachwood medical centerand Yrjbrs82-51-7579 13:55-0500Systolic blood mm[Hg]Alejandro Villar MD, PhD Work Phone: [phone] Health HamiltonBzzrsy14-24-3803 10:08-0500Body igvlqn909.48 cmBenjamin Ball DO Work Phone: [phone]01-24-2025 10:08-0500 Body mass index (BMI) [Ratio]33.1 kg/p1Dftrewln Ball DO Work Phone: 1(678)299-[address] [place], [place] 5948601-24-2025 10:08-0500 Body .15 kgBenjamin Ball DO Work Phone: 1(155)865-[address] [place], [place] 5948601-24-2025 10:08-0500 Diastolic blood ahytrzvp37 mm[Hg]Broderick Ball DO Work Phone: [phone]01-24-2025 10:08-0500 Heart rate73 /minBenjamin Ball DO Work Phone: 1(414)231-[address] [place], [place] 5948601-24-2025 10:08-0500 Respiratory rate12 /minBenjamin Ball DO Work Phone: 1(052)066-[address] [place], [place] 5948601-24-2025 10:08-0500 Systolic blood nvxthaos891 mm[Hg]Broderick Ball DO Work Phone: [phone]01-15-2025 13:43-0500 Body awfxny070.5 cmFredric Itzkowitz DO Work Phone: [facility] HealthUarrcnugwj58-38-0472 13:43-0500Body mass index (BMI) [Ratio]35.3 kg/l3Pfgbgdc Itzkowitz DO Work Phone: [facility] HealthAvuezdndkj77-30-0987 13:43-0500Body bawtzn18.54 kgFredric Itzkowitz DO Work Phone: [facility] HealthUojwrzxakx68-24-0154 13:43-0500Diastolic blood unmlcmqd93 mm[Hg]Aftab Itzkowitz DO Work Phone: [facility] HealthQizkhnrjzy02-19-0910 13:43-0500Systolic blood vinhaqnv584 mm[Hg]Aftab Itzkowitz DO Work Phone: [phone] HealthUjnzxxkewj66-18-8775 11:04-0500Body fqajwy640.48 cmBenjamin Ball DO Work Phone: [phone]01-14-2025 11:04-0500 Body mass index (BMI) [Ratio]34.2 kg/l8Javyxyrx Ball DO Work Phone: 1(668)[facility] [place], [place] 5948601-14-2025 11:04-0500 Body icxuzp19.93 kgBenjamin Ball DO Work Phone: 1(253)[facility] [place], [place] 5948601-14-2025 11:04-0500 Diastolic blood bsjorbjr69 mm[Hg]Broderick Ball DO Work Phone: 1(656)579-[address] [place], [place] 5948601-14-2025 11:04-0500 Heart rate83 /minBenjamin Ball DO Work Phone: 1(617)433-[address] [place], [place] 5948601-14-2025 11:04-0500 Respiratory rate12 /minBenjamin Ball DO Work Phone: 1(637)[facility] [place], [place] 5948601-14-2025 11:04-0500 Systolic blood icbrjpml024 mm[Hg]Broderick Ball DO Work Phone: 1(249)179-[address] [place], [place] 5948601-10-2025 16:28-0500 Diastolic blood mm[Hg]Broderick Ball DO Work Phone: 1(347)981-[address] [place], [place] 5948601-10-2025 16:28-0500 Heart rate60 /minBenjamin Ball DO Work Phone: 1(054)076-[address] [place], [place] 5948601-10-2025 16:28-0500 Respiratory rate18 /minBenjamin Ball DO Work Phone: 1(262)[facility] [place], [place] 5948601-10-2025 16:28-0500 SaO2% (BldA) [Mass fraction]99 %Broderick Ball DO Work Phone: 1(808)348-[address] [place], [place] 5948601-10-2025 16:28-0500 Systolic blood wckhopsd501 mm[Hg]Broderick Ball DO Work Phone: 1(246)[address] [place], [place] 5265801-10-2025 13:52-0500 Body ydynrw376.48 cmBenjamin Ball DO Work Phone: 1(471)[facility] [place], [place] 5948601-10-2025 13:52-0500 Body bfuewuusvcm85.6 [degF]Broderick Ball DO Work Phone: 1(723)[address] [place], [place] 5265801-10-2025 13:52-0500 Body yqoyzw59 kgBenjamin Ball DO Work Phone: 1(295)[facility] [place], [place] 5948601-10-2025 11:16-0500 Body .48 cmReg[facility]01-10-2025 11:16-0500Body mass index (BMI) [Ratio]34.2 kg/e5LwcgofcdqRegency Hospital [facility]01-10-2025 11:16-0500Body quapvb76.82 kgRegency Hospital [facility]01-10-2025 11:16-0500Diastolic blood mm[Hg][facility] 11-24-2024 11:16-0500Heart rate82 /[facility] 11-24-2024 11:16-0500Respiratory rate12 /[facility] 11-24-2024 11:16-0500Systolic blood dsadxtqw784 mm[Hg][facility]01-03-2025 13:45-0500Body .48 cmRegency Hospital [facility]01-03-2025 13:45-0500Body mass index (BMI) [Ratio]34.4 kg/o8VnzrpjlojRegency Hospital [facility]01-03-2025 13:45-0500Body .5 kgRegency Hospital [facility]01-03-2025 13:45-0500Diastolic blood rkgshzis07 mm[Hg][facility]01-03-2025 13:45-0500Heart rate68 /[facility]01-03-2025 13:45-0500Respiratory rate12 /[facility]01-03-2025 13:45-0500Systolic blood mm[Hg][facility]12-20-2024 15:00-0500Hourly RoundingRichard Rhiew [facility]12-20-2024 15:00-0500 Promise to ReturnRichard Rhiew [facility]12-20-2024 14:00-0500 Hourly RoundingRichard Rhiew [address] [place], [place] 2296812-20-2024 14:00-0500 Promise to ReturnRichard Rhiew [facility]12-20-2024 13:30-0500 Hourly RoundingRichard Rhiew [facility]12-20-2024 13:00-0500 Promise to ReturnRichard Rhiew [facility]12-20-2024 11:27-0500Heart rate58 /minRichard Rhiew [facility]12-20-2024 11:27-1239EfI4% (BldA) [Mass fraction]95 %Shashi Rhiew [facility]12-20-2024 11:27-0500 Respiratory rate16 /minRichard Rhiew [address] [place], [place] 2540312-20-2024 11:27-0500 Diastolic blood sfwzpeui88 mm[Hg]Shashi Rhiew [facility]12-20-2024 11:27-0500Mean blood kjxksaon67 mm[Hg]Shashi Rhiew [facility]12-20-2024 11:27-0500 Systolic blood swyyiyyp264 mm[Hg]Shashi Rhiew [facility]12-20-2024 11:27-0500Body vsfomwydduh09.52 [degF]Shashi Rhiew [address] [place], [place] 2540312-20-2024 07:43-0500Heart rate60 /minRichard Rhiew [address] [place], [place] 2540312-20-2024 07:43-0780HgX5% (BldA) [Mass fraction]96 %Shashi Rhiew [facility]12-20-2024 07:43-0500 Respiratory rate16 /minRichard Rhiew [facility]12-20-2024 07:42-0500Body yomxiyydziu82.52 [degF]Shashi Rhiew [facility]12-20-2024 07:42-0500 Diastolic blood bdidteyr40 mm[Hg]Shashi Rhiew [facility]12-20-2024 07:42-0500Mean blood rqjatlow76 mm[Hg]Shashi Rhiew [facility]12-20-2024 07:42-0500 Systolic blood yyjstzom518 mm[Hg]Shashi Rhiew [address] [place], [place] 2296812-20-2024 04:31-0500Heart rate59 /minRichard Rhiew [address] [place], [place] 2540312-20-2024 04:31-6329WvO1% (BldA) [Mass fraction]96 %Shashi Rhiew [facility]12-20-2024 04:31-0500 Respiratory rate17 /minRichard Rhiew [facility]12-20-2024 04:30-0500Blood Pressure LocationRichard Rhiew [facility]12-20-2024 04:30-0500 Diastolic blood sxwurkkk62 mm[Hg]Shashi Rhiew [facility]12-20-2024 04:30-0500Mean blood tmrtroqh82 mm[Hg]Shashi Rhiew [facility]12-20-2024 04:30-0500 Systolic blood hnciqccu621 mm[Hg]Shashi Rhiew [facility]12-20-2024 00:58-0500Body gevitywchhh21.52 [degF]Shashi Rhiew [facility]12-19-2024 16:45-0500 Respiratory rate9 /minRichard Rhiew [facility]12-19-2024 16:20-0500Blood Pressure LocationRichard Rhiew [facility]12-19-2024 16:20-0500Mean blood mm[Hg]Shashi Rhiew [facility]12-19-2024 16:20-0500 Respiratory rate11 /minRichard Rhiew [facility]12-19-2024 16:05-0500Blood Pressure LocationRichard Rhiew [facility]12-19-2024 16:05-0500Mean blood unqridsi34 mm[Hg]Shashi De Souza [facility]12-19-2024 16:05-0500 Respiratory rate13 /Juana De Souza [facility]12-13-2024 09:00-0500[facility] .[facility] 09:00-0500Body mass index (BMI) [Ratio]35.2 kg/b8[facility]oczbupbo[facility]12-13-2024 09:00-0500Body lwgmeg98.31 kgReg[facility]12-13-2024 09:00-0500Diastolic blood lubjrlpk25 mm[Hg][facility] 10-27-2024 09:00-0500Heart rate69 [facility] 10-27-2024 09:00-0500Respiratory rate12 /[facility] 10-27-2024 09:00-0500Systolic blood amctmcxz200 mm[Hg][facility]10-24-2024 08:48-0400Body enxsnl530.48 cmDO Broderick Ball Work Phone: [phone]19[facility]10-24-2024 08:48-0400 Body mass index (BMI) [Ratio]35.8 kg/m2DO Broderick Ball Work Phone: [phone]10-24-2024 08:48-0400 Body buyaufseaek37.6 [degF]DO Broderick Ball Work Phone: [phone]10-24-2024 08:48-0400 Body jffjex31.9 kgDO Broderick Ball Work Phone: [phone]10-24-2024 08:48-0400 Diastolic blood gufjcamz76 mm[Hg]DO Broderick Ball Work Phone: [phone]10-24-2024 08:48-0400 Heart rate75 /minDO Broderick Ball Work Phone: [phone]10-24-2024 08:48-0400 Respiratory rate16 /minDO Broderick Howard Work Phone: [facility]10-24-2024 08:48-0400 SaO2% (BldA) [Mass fraction]98 %DO Broderick Howard Work Phone: [facility]10-24-2024 08:48-0400 Systolic blood ybpozlwv348 mm[Hg]DO Broderick Howard Work Phone: [facility]10-22-2024 13:06-0400 Body uwxntl060.5 Keanu Reilly MD Work Phone: [facility]10-22-2024 13:06-0400Body mass index (BMI) [Ratio]35.93 kg/c1TplrjRanda Reilly MD Work Phone: [facility]10-22-2024 13:06-0400Body qlmyis44.1 kgRanda Reilly MD Work Phone: [facility]10-22-2024 13:06-0400Diastolic blood jrlesbus77 mm[Hg]Randa Reilly MD Work Phone: [facility]10-22-2024 13:06-0400Heart rate84 /min Randa Reilly MD Work Phone: [facility]10-22-2024 13:06-0400Systolic blood mm[Hg]Randa Reilly MD Work Phone: [facility]10-17-2024 09:54-0400Body huiohj819.5 Kusum Millard MD Work Phone: [facility]10-17-2024 09:54-0400Body mass index (BMI) [Ratio]35.48 kg/e8RzkklzukhKitty Millard MD Work Phone: [facility]10-17-2024 09:54-0400Body aqfoaa61 kg Kitty Millard MD Work Phone: [facility]10-17-2024 09:54-0400Diastolic blood mm[Hg]Kitty Millard MD Work Phone: [facility]10-17-2024 09:54-0400Heart rate81 /min Kitty Millard MD Work Phone: [facility]10-17-2024 09:54-0400Systolic blood ancsncxh289 mm[Hg]Kitty Millard MD Work Phone: [facility]10-16-2024 15:27-0400Body afzopr895.48 cmDO Broderick Ball Work Phone: [phone]10-16-2024 15:27-0400 Body mass index (BMI) [Ratio]35.5 kg/m2DO Broderick Ball Work Phone: [phone]10-16-2024 15:27-0400 Body .22 kgDO Broderick Ball Work Phone: [phone])[address] [place], [place] 5265810-16-2024 15:27-0400 Diastolic blood trbuqsls26 mm[Hg]DO Broderick Ball Work Phone: [phone])[address]10-16-2024 15:27-0400 Heart rate83 /minDO Broderick Ball Work Phone: [phone])[address] [place], [place] 5265810-16-2024 15:27-0400 Respiratory rate12 /minDO Broderick Ball Work Phone: 1(422)679-[address] [place], [place] 5948610-16-2024 15:27-0400 Systolic blood igbfsjdz797 mm[Hg]DO Broderick Ball Work Phone: 1(240)607-[address] [place], [place] 5948610-15-2024 10:50-0400 Body gibqdg423.48 cmDO Broderick Ball Work Phone: 1([phone])046[address]10-15-2024 10:50-0400 Body mass index (BMI) [Ratio]35.1 kg/m2DO Broderick Ball Work Phone: [phone] [address]10-15-2024 10:50-0400 Body nbisva96.08 kgDO Broderick Ball Work Phone: [facility]10-15-2024 10:50-0400 Diastolic blood dgkswvud55 mm[Hg]DO Broderick Ball Work Phone: [facility]10-15-2024 10:50-0400 Heart rate76 /minDO Broderick Ball Work Phone: [facility]10-15-2024 10:50-0400 Systolic blood ortziiyn897 mm[Hg]DO Broderick Ball Work Phone: [facility]08-15-2024 13:05-0400 Body nilagv865.5 cmAalbertina Villar MD, PhD Work Phone: [phone] Health HamiltonKvfnfq66-75-9337 13:05-0400Body mass index (BMI) [Ratio]34.44 kg/y7Aydyegjovi Villar MD, PhD Work Phone: [phone] Health HamiltonPrzezv92-13-0687 13:05-0400Body .4 kgAndjovi Villar MD, PhD Work Phone: [phone] Health HamiltonEjemfm04-33-9799 13:05-0400Diastolic blood iaanwbmu12 mm[Hg]Alejandro Villar MD, PhD Work Phone: [phone] Health HamiltonTqfucj76-71-6016 13:05-0400Heart rate85 /min Alejandro Villar MD, PhD Work Phone: [phone] Health HamiltonCcrdmi23-06-8326 13:05-0400Systolic blood qnuusgcq148 mm[Hg]Alejandro Villar MD, PhD Work Phone: [phone] Health HamiltonUdgrvd08-16-2065 14:01-0400Body .48 cmDO Broderick Ball Work Phone: [facility]08-13-2024 14:01-0400 Body mass index (BMI) [Ratio]34.2 kg/m2DO Broderick Ball Work Phone: [phone]08-13-2024 14:01-0400 Body kairkd78.82 kgDO Broderick Ball Work Phone: [phone]08-13-2024 14:010400 Diastolic blood ugdlqbwl88 mm[Hg]DO Broderick Ball Work Phone: 1(538)530-[address] [place], [place] 5948608-13-2024 14:01040 Heart rate68 /minDO Broderick Ball Work Phone: 1(046)158-[address] [place], [place] 5948608-13-2024 14:010400 Respiratory rate12 /minDO Broderick Ball Work Phone: 1(736)854-[address] [place], [place] 5948608-13-2024 14:010400 Systolic blood edqynhpd876 mm[Hg]DO Broderick Ball Work Phone: 1(924)[address] [place], [place] 5265807-25-2024 14:260400 Body whayxd794.48 cmDO Broderick Ball Work Phone: 1(327)[address] [place], [place] 5265807-25-2024 14:26-0400 Body mass index (BMI) [Ratio]34 kg/m2DO Broderick Ball Work Phone: [phone]07-25-2024 14:26-0400 Body .6 [degF]DO Broderick Ball Work Phone: 1(306)[address] [place], [place] 5265807-25-2024 14:26-0400 Body dylupe33.36 kgDO Broderick Ball Work Phone: 1(025)[address] [place], [place] 5265807-25-2024 14:26-0400 Diastolic blood jyjlwqdp00 mm[Hg]DO Broderick Ball Work Phone: 1(959)622-[address] [place], [place] 5948607-25-2024 14:26-0400 Heart rate73 /minDO Broderick Ball Work Phone: 1(216)056-[address] [place], [place] 5948607-25-2024 14:26-0400 Respiratory rate16 /minDO Broderick Ball Work Phone: 1(475)[facility] [place], [place] 5948607-25-2024 14:26-0400 SaO2% (BldA) [Mass fraction]99 %DO Broderick Ball Work Phone: 1(101)686-[address] [place], [place] 5948607-25-2024 14:26-0400 Systolic blood mm[Hg]DO Broderick Ball Work Phone: [facility]07-16-2024 07:27-0400 Body fgxodj280.48 cmDO Broderick Ball Work Phone: [facility]07-16-2024 07:27-0400 Body dydtzs93.18 kgDO Broderick Howard Work Phone: [facility]07-09-2024 11:23-0400 Body dyuuaj821.5 Keanu Reilly MD Work Phone: [facility]07-09-2024 11:23-0400Body mass index (BMI) [Ratio]34.55 kg/a2SglncRanda Reilly MD Work Phone: [phone]07-09-2024 11:23-0400Body innhtc14.68 kgRanda Reilly MD Work Phone: [phone]07-09-2024 11:23-0400Diastolic blood jbsgjney96 mm[Hg]Randa Reilly MD Work Phone: [phone]07-09-2024 11:23-0400Heart rate85 /min Randa Reilly MD Work Phone: [phone]07-09-2024 11:23-0400Systolic blood iguhraol178 mm[Hg]Randa Reilly MD Work Phone: [phone]06-07-2024 10:00-0400Body lopagl133.48 cmDO Broderick Howard Work Phone: [facility]06-07-2024 10:00-0400 Body mass index (BMI) [Ratio]34.5 kg/m2DO Broderick Ball Work Phone: [facility]06-07-2024 10:00-0400 Body .72 kgDO Broderick Ball Work Phone: [facility]05-15-2024 13:34-0400 Body muzktu426.48 cmDO Broderick Ball Work Phone: 1(419)483-[address] [place], [place] 5948605-15-2024 13:34-0400 Body mass index (BMI) [Ratio]33.3 kg/m2DO Broderick Ball Work Phone: [phone])[address]05-15-2024 13:34-0400 Body ygvvzx66.78 kgDO Broderick Ball Work Phone: 1(287)[address]05-15-2024 13:34-0400 Diastolic blood irbyyzqj65 mm[Hg]DO Broderick Ball Work Phone: 1(690)890-[address] [place], [place] 5948605-15-2024 13:34-0400 Heart rate73 /minDO Broderick Ball Work Phone: 1(725)44620 [address]05-15-2024 13:34-0400 Respiratory rate12 /minDO Broderick Ball Work Phone: 1(483)[address]05-15-2024 13:34-0400 Systolic blood tdgofcma909 mm[Hg]DO Broderick Ball Work Phone: 1(636)024[address]05-13-2024 11:25-0400 Body klwtpu193.48 cmDO Broderick Ball Work Phone: 1(383)[address]05-13-2024 11:25-0400 Body dvdcyx00.36 kgDO Broderick Ball Work Phone: 1(533)033[address]04-23-2024 08:53-0400 Body zemguq676.5 Keanu Reilly MD Work Phone: [place] Axbrzb46-31-7997 08:53-0400Body mass index (BMI) [Ratio]34.06 kg/x2WzoodRanda Reilly MD Work Phone: [place] Vxkzwn91-53-9607 08:53-0400Body iziuet19.46 kgRanda Reilly MD Work Phone: [place] Xeoqoy74-08-6267 08:53-0400Diastolic blood hcimwijy13 mm[Hg]Randa Reilly MD Work Phone: [place] Lpcvqe08-19-6985 08:53-0400Heart rate85 /min Randa Reilly MD Work Phone: [phone] Health HamiltonIxkrks69-58-8397 08:53-0400Systolic blood xjlrsyjx368 mm[Hg]Randa Reilly MD Work Phone: [phone] Health HamiltonSxspfz71-86-9901 14:58-0400Body nirbhw055.29 cmReg[facility]03-27-2024 14:58-0400Body mass index (BMI) [Ratio]33.5 kg/c9MytyqsqtpRegency Hospital [facility]03-27-2024 14:58-0400Body .08 kgReg[facility]03-27-2024 14:58-0400Diastolic blood vkxgqgci01 mm[Hg][facility]03-27-2024 14:58-0400 Heart rate78 /[facility]03-27-2024 14:58-0400 Respiratory rate12 /[facility]03-27-2024 14:58-0400 Systolic blood wvijydfn709 mm[Hg][facility]02-08-2024 09:02-0500Body aelfsq585.5 cmAalbertina Villar MD, PhD Work Phone: [phone] Health HamiltonDvqkmf49-97-0085 09:02-0500Body temperature 97.59 [degF]Alejandro Villar MD, PhD Work Phone: [phone] Health HamiltonLxnler98-68-9422 09:02-0500Body bdhvyj52.64 kgAlejandro Villar MD, PhD Work Phone: LKettering Health HamiltonOxqucl19-44-9306 09:02-0500Diastolic blood gdbbkuab45 mm[Hg]Alejandro Villar MD, PhD Work Phone: [phone] Health HamiltonQxergw12-70-6614 09:02-0500Heart rate85 /min Alejandro Villar MD, PhD Work Phone: [phone] Health HamiltonUzqenl05-29-5982 09:02-9709TcG7% (BldA) [Mass fraction]100 %Alejandro Villar MD, PhD Work Phone: CK[facility] HamiltonEuleuh12-40-2780 09:02-0500Systolic blood dryldons360 mm[Hg]Alejandro Villar MD, PhD Work Phone: cKettering Health HamiltonEmqigb04-64-7416 14:50-0400Body iwbjgp191.5 cmMarisol Bell [employer] OPERATOR.[facility] Work Phone: [facility]10-25-2023 14:50-0400Body zjrhun09.5 kgMarisol Bell [employer] ELECTRON[employer] OPERATOR.[facility] Work Phone: [facility]10-25-2023 14:50-0400Diastolic blood ufubpajd49 mm[Hg]Mirian Bell AVIATION ELECTRONIC WARF[employer] OPERATOR.[facility] Work Phone: [facility]10-25-2023 14:50-0400Heart rate62 /min Mirian Bell [employer] ELECT[employer] OPERATOR.[facility] Work Phone: [facility]10-25-2023 14:50-0400Systolic blood yeqdgtrc316 mm[Hg]Mirian Bell AVIATION ELECTRONIC WARFARE OPERATOR.[facility] Work Phone: [facility]10-11-2023 10:20-0400Body .29 cmDeborah Blades Other [facility] [employer] Other 10-11-2023 10:20-0400Body mass index (BMI) [Ratio] 34.35 kg/g5Fytzfjk Blades Other [facility] [employer] Other 10-11-2023 10:20-0400Body oefezz52.36 kgDeborah Blades Other [employer] Other 10-02-2023 10:00-0400Body ogirpt036.29 cmDeborah Blades Other [employer] Other 10-02-2023 10:00-0400Body mass index (BMI) [Ratio] 34.35 kg/t0Xjtggfj [employer] Other [facility] [employer] Other 10-02-2023 10:00-0400Body pvucmq85.36 kgDenew [facility] [employer] Other [facility] [employer] Other 09-21-2023 07:21-0400Body agthsllqyyk38.8 [degF]DO Broderick [employer] Work Phone: [phone]09-21-2023 07:21-0400 Diastolic blood typtldlu52 mm[Hg]DO Broderick Ball Work Phone: [phone]85[facility]09-21-2023 07:21-0400 Heart rate63 /minDO [employer] Work Phone: [phone]09-21-2023 07:21-0400 Respiratory rate14 /minDO Broderick Ball Work Phone: 1(187)020-[address] [place], [place] 5948609-21-2023 07:21-0400 SaO2% (BldA) [Mass fraction]97 %DO Broderick Ball Work Phone: [phone])[address]09-21-2023 07:21-0400 Systolic blood zhgxlzyk262 mm[Hg]DO Broderick Ball Work Phone: [phone]09-21-2023 06:00-0400 Body uasyxq40.7 kgDO Broderick Ball Work Phone: 1(238)008-[address] [place], [place] 5948609-20-2023 00:00-0400 Inhaled oxygen flow rate3 L/minDO Broderick Ball Work Phone: 1(770)794-[address] [place], [place] 5948609-19-2023 07:02-0400 Body hujecd258.48 cmDO Broderick Ball Work Phone: [phone]09-19-2023 07:02-0400 Body mass index (BMI) [Ratio]35 kg/m2DO Broderick Ball Work Phone: [phone])[address]08-23-2023 14:20-0400 Body mqraim368.29 cmDeborah Blades Other [employer] Other 08-23-2023 14:20-0400Body mass index (BMI) [Ratio] 33.65 kg/m9Liqbnud Blades Other [employer] Other 08-23-2023 14:20-0400Body sfvenn78.54 kgDeborah Blades Other [employer] Other 08-23-2023 14:20-0400Diastolic blood uavndjid46 mm[Hg] Niki Blades Other [employer] Other 08-23-2023 14:20-0400Systolic blood dfoqhkof974 mm[Hg] Niki Blades Other [employer] Other 07-21-2023 08:42-0400Body okoatw187.56 cmDO [employer] Work Phone: [facility]07-21-2023 08:42-0400 Body .08 kgDO Broderick [employer] Work Phone: [facility]06-22-2023 14:30-0400 Body ilaxvt900.29 cmCameron Ditty Other [employer] Other 06-22-2023 14:30-0400Body mass index (BMI) [Ratio]33.3 kg/s0Ezgzwua Ditty Other [employer] Other 06-22-2023 14:30-0400Body xambsr42.64 kgCameron Ditty Other [employer] Other 06-22-2023 14:30-0400Diastolic blood mm[Hg] Bertram Ditty Other [employer] Other 06-22-2023 14:30-0400Systolic blood ovcabyrc155 mm[Hg] Bertram Sanders Other [employer] Other 06-19-2023 14:30-0400Body .29 cmBenjamin Ball Other [employer] Other 06-19-2023 14:30-0400Body mass index (BMI) [Ratio] 33.16 kg/r2Ijjdvttj Ball Other [employer] Other 06-19-2023 14:30-0400Body rumypv94.27 kgBenjamin Ball Other [employer] Other 06-19-2023 14:30-0400Diastolic blood mecjjdgm23 mm[Hg] Broderick Ball Other [employer] Other 06-19-2023 14:30-0400Respiratory rate12 /minBenjamin Ball Other [employer] Other 06-19-2023 14:30-0400Systolic blood lzoylnbi994 mm[Hg] Broderick Ball Other [employer] Other 05-11-2023 11:00-0400Body aborim182.29 cmBenjamin Ball Other [employer] Other 05-11-2023 11:00-0400Body mass index (BMI) [Ratio] 33.61 kg/q1Jqftkzig Ball Other [employer] Other 05-11-2023 11:00-0400Body ljsigr03.45 kgBenjamin Ball Other [employer] Other 05-11-2023 11:00-0400Diastolic blood yqjywasl17 mm[Hg] Broderick Ball Other [employer] Other 05-11-2023 11:00-0400Respiratory rate12 /minBenjamin Ball Other [employer] Other 05-11-2023 11:00-0400Systolic blood rauekbeh983 mm[Hg] Broderick Ball Other [employer] Other 02-23-2023 14:15-0500Body yupnji253.29 cmCameron Ditty Other [employer] Other 02-23-2023 14:15-0500Body mass index (BMI) [Ratio] 32.25 kg/g2Gzbkspy Ditty Other [employer] Other 02-23-2023 14:15-0500Body malxcl69.92 kgCameron Ditty Other [employer] Other 02-23-2023 14:15-0500Diastolic blood pgrxwtzu51 mm[Hg] Bertram Ditty Other [employer] Other 02-23-2023 14:15-0500Systolic blood oyvhapmb878 mm[Hg] Bertram Ditty Other [employer] Other 01-11-2023 11:00-0500Body slirbu783.29 cmBenjamin Ball Other [facility] [employer] Other 01-11-2023 11:00-0500Body mass index (BMI) [Ratio] 32.25 kg/o5Kattdpfx Ball Other [facility] [employer] Other 01-11-2023 11:00-0500Body hteoyu18.92 kgBenjamin Ball Other [employer] Other 01-11-2023 11:00-0500Diastolic blood cttiehpo91 mm[Hg] Broderick Ball Other [facility] [employer] Other 01-11-2023 11:00-0500Respiratory rate12 /minBenmary jo Ball Other [facility] [employer] Other 01-11-2023 11:00-0500Systolic blood jkryqppo847 mm[Hg] Broderick Ball Other [facility] [employer] Other 851078-02-6132 13:48-0400Body keqkmj877.5 cmAalbertina Villar MD, PhD Work Phone: cK[facility] HamiltonWfbdjt53-57-7426 13:48-0400Body txryxw60.27 kgAlejandro Villar MD, PhD Work Phone: [phone] Health HamiltonEkbvdy34-57-2931 13:48-0400Diastolic blood fixrqlps80 mm[Hg]Alejandro Villar MD, PhD Work Phone: [phone] Health HamiltonWjoood34-46-6947 13:48-0400Heart rate76 /min Alejandro Villar MD, PhD Work Phone: [phone] Health HamiltonUhprvz77-22-5500 13:48-0400Systolic blood hqultfdq821 mm[Hg]Alejandro Villar MD, PhD Work Phone: [phone] Health HamiltonEorehk71-91-4950 10:09-0400Body apaiic951 cm Kitty Millard MD Work Phone: [facility]09-08-2022 10:090400Body ztfwgy35 kg Kitty Millard MD Work Phone: [facility]09-08-2022 10:090400Diastolic blood ndozmsfq51 mm[Hg]Kitty Millard MD Work Phone: [facility]09-08-2022 10:09-0400Heart rate63 /min Kitty Millard MD Work Phone: [facility]09-08-2022 10:09040Systolic blood giybdikn655 mm[Hg]Kitty Millard MD Work Phone: [facility]02-22-2022 11:30-0500Body .29 cmCameron [employer] Other [employer] Other 02-22-2022 11:30-0500Body mass index (BMI) [Ratio] 30.68 kg/l0Ovgtfmn [employer] Other [employer] Other 02-22-2022 11:30-0500Body egujzo63.83 kgCameron JanaFX Aligned[employer] Other [employer] Other Encounters Encounter DateEncounter TypeCare ProviderFacilityStart: 09-10-2025 End: 33-12-3919bxmosndoziHvbnnseq Ball DO Work Phone: [phone]-Wbqmepmbu Health NeurosurgeryStart: 09-10-2025 End: 54-52-3093Fhtptzc encounter procedureEric Frankie Littlejohn DO-[facility] Work Phone: start: 09-06-2025 End: 15-13-5827vofkeqjbzxNzcdsral Ball DO Work Phone: -[facility]Start: 09-06-2025 End: 56-84-6546Rgpykjr encounter procedureBenjamin Ball DO-[facility] Work Phone: Start: 08-28-2025 End: 37-81-7031gioxbmxeysPqonmgkv Ball DO Work Phone: [facility] Work Phone: Start: 08-28-2025 End: 86-64-5910Tdhtzmn encounter procedureHank Lamb APRN-[facility] Work Phone: Start: 08-27-2025 End: 48-80-6698kdysezeiurThnxntqKeith Parks MDFacility:[facility] [place] Start: 08-15-2025 End: 57-77-5186esjbtrgpjzNfpunjcr Ball DO Work Phone: [facility] Work Phone: Start: 08-15-2025 End: 17-79-1244Crxgquc encounter procedureKatina Ordoñez MD-[facility] Work Phone: Start: 66-61-6586Kcv-patient / Non-visitKatina Ordoñez MD -[facility] Work Phone: Start: 08-01-2025 End: 72-43-5904Svpvvvn encounter Chelsey Brush HAND III CUTTER-C-[facility] [place] Work Phone: Start: 08-01-2025 End: 74-46-9905knflhdqwctGfybuvks Ball DO Work Phone: [facility] Work Phone: Start: 07-23-2025 End: 88-64-6845zgrugokzvkPigy E GantzFacility:[facility] Start: 98-04-7068Qxe-patient / Non-visitChris Gama-[facility] ClinicStart: 07-18-2025 End: 16-48-0547Utjtvrm encounter procedureRanda Reilly MD Work Phone: NeurologyComment on above:Intractable 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 aura and without status migrainosus (Primary Dx)Start: 07-18-2025 End: 84-96-2555xdswgvsnroSRGYP M CARDONAFacility:[facility] HospitalStart: 07-02-2025 End: 10-09-2632vvasidouacFmgiojox Ball DO Work Phone: [facility] Work Phone: Start: 07-02-2025 End: 72-64-5503Hvhngyt encounter procedureBenjamin Ball DO-[facility] [place] [facility] Work Phone: Start: 05-21-2025 End: 70-51-7311Cpnwws outpatient new 45 minutesNicholas Doher DO Work Phone: NeurologyComment on above:Chronic pain syndrome (Primary Dx); MCI (mild cognitive impairment); Sinus node dysfunction (HCC); Obesity, Class II, BMI 35-39.9Start: 05-21-2025 End: 77-79-6013cxhgpwqusdVZEXONXA DOHERFacility:[facility] HospitalStart: 04-10-2025 End: 19-11-1955Auwzrwx encounter procedureRanda Reilly MD Work Phone: NeurologyComment on above:Intractable 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 aura and without status migrainosus (Primary Dx)Start: 04-10-2025 End: 14-05-4001zwactfepaeXFRLAJose Miguel Andersonity:[facility] HospitalStart: 02-22-2025 End: 98-20-7667mxpzpohtkoFlohwoxu Ball DO Work Phone: [facility] Work Phone: Start: 02-22-2025 End: 09-99-6202Sxqgkks encounter procedureBenjamin Ball DO Work Phone: [facility] Work Phone: Start: 02-21-2025 End: 85-85-8841ftcvziruwcQfjqhkca Ball DO Work Phone: [facility] Work Phone: Start: 02-21-2025 End: 91-80-5767Dmgyvrp encounter procedureBegiovani Howard DO Work Phone: [facility] Work Phone: Start: 38-47-7129Tjo-patient / Non-visitBegiovani Howard DO Work Phone: [facility] Work Phone: Start: 01-23-2025 End: 54-41-4518Ejdgav-up encounterAlejandro Villar MD, PhD Work Phone: NeurologyStart: 01-05-2025 End: 50-30-6932Hrubcwa encounter procedureSvitlana Mayfield APRN.CNP Work Phone: NeurologyComment on above:Intractable 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 aura and without status migrainosus (Primary Dx)Start: 01-05-2025 End: 71-13-6786psnzcclccaFRWFCF POULTONFacility:[facility] HospitalStart: 01-04-2025 End: 58-83-6975Nmydglz encounter procedureAlejandro Villar MD, PhD Work Phone: NeurologyComment on above:Localization-related (focal) (partial) symptomatic epilepsy and epileptic syndromes with complex partial seizures, intractable, without status epilepticus (HCC) (Primary Dx); Memory lossStart: 01-04-2025 End: 04-96-2896xpnngglpbmKWRQJZ S STOJICFacility:[facility] HospitalStart: 12-13-2024 End: 53-05-2908Miqjoe outpatient visit 15 minutesFredric H Makenzie DO Work Phone: [facility] GENSComment on above:Abdominal wall hematoma, subsequent encounter (Primary Dx)Start: 12-13-2024 End: 43-74-1953rzlidlfkfeZBOBYWX H ITZJOCYNot AvailableStart: 12-09-2024 End: 33-84-3261RfpxieRumje Danese APRN.COSTUMED CHARACTER Work Phone: NeurologyComment on above:Refill RequestStart: 12-08-2024 End: 23-68-8336itrqsztjnxVwnnxuor Ball DO Work Phone: [facility] Work Phone: Start: 12-08-2024 End: 33-38-8842Kqhkckr encounter procedureBenjamin Ball DO Work Phone: [facility] Work Phone: Start: 11-29-2024 End: 53-59-7666Phormh outpatient new 45 minutesFredric H Itzkoalona DO Work Phone: NOQB ST GENSComment on above:Abdominal wall hematoma, initial encounter (Primary Dx)Start: 11-29-2024 End: 50-15-4750ayqivoswtoYVPSMHG H ITZKOMatt AvailableStart: 11-28-2024 End: 34-08-6285cpmwgxbykvDbwqfyvh Ball DO Work Phone: [facility] Work Phone: Start: 11-28-2024 End: 03-46-5892Etyxais encounter procedureBenveronicamin Lee DO Work Phone: [facility] Work Phone: Start: 11-24-2024 End: 97-81-5053Vfpdmdosi department patient visitBenmary jo Howard DO Work Phone: [facility] Work Phone: Start: 11-24-2024 End: 23-28-2864ofcosggxlpMwbrcexhcC[facility] Work Phone: Start: 11-24-2024 End: 32-10-6527Wfqkfjl encounter procedureCritical Access Hospital Phys[facility] Work Phone: Start: 11-17-2024 End: 90-83-4420lqtxbsnnpfXmmmkegoyCleveland Clinic [facility] Work Phone: Start: 11-17-2024 End: 09-07-6134Bzvevbq encounter procedureCritical Access Hospital Physician GroupMercy Health [facility]rbana Hospital Work Phone: Start: 11-02-2024 End: 76-44-3571urqcjmcsyxAfdipms B RhiewFacility:FTMCStart: 11-02-2024 End: 41-56-1747Tcbmvmw encounter procedureRichjeffrey B Rhiew [facility] Start: 10-27-2024 End: 69-32-9919Npeeumhji for other preprocedural examinationMercy Health Defiance Hospitaltart: 10-27-2024 End: 57-33-9648Eujghxi encounter procedureCritical Access Hospital Physician GroupMercy Health Urbana Hospital Work Phone: Start: 23-28-1842Cqt-patient / Non-visitCritical Access Hospital Physician [facility] Work Phone: Start: 10-25-2024 End: 23-25-6086jwsnygodzxWptazyn B RhiewFacility:FTMCStart: 10-23-2024 End: 44-61-4200pspkefbrtaZcdvstt B RhiewFacility:FTMCStart: 10-23-2024 End: 07-77-4088Idythqk encounter procedureRichard B Rhiew [facility] Start: 10-02-2024 End: 07-85-6017joybnnqlhlHANDHDHKP TANAKA ESPOSITOFacility:[facility] Hospitaltart: 09-07-2024 End: 53-81-2205btmexoqipiUH [facility] Work Phone: [facility] Work Phone: Start: 09-07-2024 End: 60-38-7509Gysjcud encounter procedureDO Broderick Howard Work Phone: [facility] Nephrology Sunny Work Phone: Start: 09-05-2024 End: 50-29-0358Lojbird encounter procedureRanda Reilly MD Work Phone: NeurologyComment on above:Intractable 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 aura and without status migrainosus (Primary Dx)Start: 09-05-2024 End: 84-33-0513ardholehlzVTVPR M CARDONAFacility:[facility] HospitalStart: 08-31-2024 End: 78-53-7738zfklaaxayuYSOPAKISGAnder MILLARDFacility:[facility] HospitalStart: 08-31-2024 End: 26-46-9500Ixtgax outpatient visit 25 minutesKitty Millard MD Work Phone: CardiologyComment on above:Sinus node dysfunction (HCC) (Primary Dx); Cardiac pacemaker in situ; BradycardiaStart: 08-30-2024 End: 99-91-1421bkmxhfnoaxKW Broderick Howard Work Phone: [facility] Work Phone: Start: 08-30-2024 End: 65-06-8556Mujwphd encounter procedureDO Broderick Howard Work Phone: [facility] Work Phone: Start: 08-29-2024 End: 08-81-6672plpucvvtcxIE Broderick [employer] Work Phone: [facility] Work Phone: Start: 08-29-2024 End: 68-64-1766Tthugtq encounter procedureDO Broderick Howard Work Phone: [facility] Work Phone: Start: 08-29-2024 End: 31-24-4760gscktnrfflGA Broderick [employer] Work Phone: [facility] Work Phone: Start: 08-29-2024 End: 26-88-0745Zwlkwcz encounter procedureDO Broderick Howard Work Phone: [facility] Gastroenterology Work Phone: Start: 02-23-7134Zew-patient / Non-visitDO Broderick Howard Work Phone: [facility] GroupEvergreen[facility] Professional [facility] Work Phone: Start: 21-30-0938Aba-patient / Non-visitDO Broderick Howard Work Phone: [facility] Work Phone: Start: 07-05-2024 End: 32-91-7880cfnrbbqvsoNW Broderick [employer] Work Phone: [facility] Work Phone: Start: 07-05-2024 End: 57-49-5995Mshtmndk ReferredDO Broderick Howard Work Phone: [facility]-LAB Path Spec Anthony HospStart: 80-46-1874Bka-patient / Non-visitDO Broderick Howard Work Phone: [facility] Work Phone: Start: 06-29-2024 End: 69-49-3498Citrbmq encounter procedureAlejandro Villar MD, PhD Work Phone: NeurologyComment on above:Focal epilepsy with impairment of consciousness, intractable (HCC) (Primary Dx); Partial epilepsy with impairment of consciousness, intractable (HCC)Start: 06-27-2024 End: 20-02-9610weatdbyeuuTH Broderick Howard Work Phone: [facility] Work Phone: Start: 06-27-2024 End: 56-58-8108Nscnata encounter procedureDO Broderick Howard Work Phone: [facility] Work Phone: Start: 06-12-2024 End: 10-32-6384ewliyzmrkzCVJACK POMPA AvailableStart: 06-08-2024 End: 55-80-3031tvjeukozteAI Broderick Howard Work Phone: [facility] Work Phone: Start: 06-08-2024 End: 98-96-0671Tjwmpnt encounter procedureDO Broderick Howard Work Phone: [facility] Nephrology Sunny Work Phone: Start: 13-85-8722Wgs-patient / Non-visitDO Broderick Howard Work Phone: [facility] Work Phone: Start: 05-30-2024 End: 76-62-9260atmpqrkwjrXT Broderick Howard Work Phone: [facility] Work Phone: Start: 05-30-2024 End: 84-23-3660Kpnbzsl encounter procedureDO Broderick Howard Work Phone: [facility]-MRI Main [place] Work Phone: Start: 05-23-2024 End: 53-95-7831Hoqumph encounter procedureRanda Reilly MD Work Phone: NeurologyComment on above:Intractable 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 aura and without status migrainosus (Primary Dx)Start: 78-30-0456Glp- patient / Non-visitDO Broderick Howard Work Phone: [facility] GroupEvergreen[facility] Work Phone: Start: 16-76-4701Fev-patient / Non-visitDO Broderick Howard Work Phone: [facility] Work Phone: Start: 05-03-2024 End: 71-98-5679eibopwfjpcDZCJJRL J MEYERNot AvailableStart: 04-21-2024 End: 70-53-5163sjpiijhggfTM Broderick Howard Work Phone: [facility] Work Phone: Start: 04-21-2024 End: 70-74-3675Adecywd encounter procedureDO Broderick Howard Work Phone: [facility] Neurosurgery Work Phone: start: 03-29-2024 End: 12-90-3643Ihapurw encounter procedureDO Broderick Howard Work Phone: [facility] Work Phone: Start: 03-28-2024 End: 16-50-6296Wkcymdh encounter procedureDO Broderick Howard Work Phone: [facility]-MRI Main [place] Work Phone: Start: 03-09-2024 End: 30-22-2801fdoliebgadMJ Broderick Howard Work Phone: [facility] Work Phone: Start: 03-09-2024 End: 65-50-3680Uekxolf encounter procedureDO Broderick Howard Work Phone: [facility]-Pacemaker CheckStart: 88-18-6615Jpmjbx-up encounterChdanny Millard MD Work Phone: [facility] DepartmentStart: 81-93-4171Lucfnci encounter procedureKitty Millard MD Work Phone: [facility] DepartmentStart: 03-07-2024 End: 24-85-3775Ergwfxe encounter procedureRanda Reilly MD Work Phone: NeurologyComment on above:Intractable 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 aura and without status migrainosus (Primary Dx); Cervicalgia; SHELL (obstructive sleep apnea)Start: 65-58-5269Xuo-patient / Non-visitDO Broderick Howard Work Phone: [facility] Work Phone: Start: 66-89-2430Apq-patient / Non-visitDO Broderick Howard Work Phone: [facility] Physician GroupMer[facility] Hospital Work Phone: Start: 71-97-0886Gfq-patient / Non-visitDO Broderick Howard Work Phone: [facility] Professional [employer] Work Phone: Start: 02-09-2024 End: 63-97-8926vxcycrbkbpTusybhnqkC[facility] Work Phone: Start: 02-09-2024 End: 37-09-6239Yuzcrlb encounter procedureCritical Access Hospital Physician [facility] Work Phone: Start: 12-23-2023 End: 55-40-3597Kyaqnev encounter Liz Villar MD, PhD Work Phone: NeurologyComment on above:Intractable 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 aura and without status migrainosus (Primary Dx)Start: 11-24-2023 End: 62-76-9196bgwmvfquvtZkuwgnbe Ball Other [facility] [employer] Other Start: 79-04-0810Zizuwy outpatient visit 15 minutes Broderick HowardAdams County Hospitaltart: 11-24-2023 End: 70-28-0085Tdrjmbi encounter procedureCritical Access Hospital Physician GroupMercy Health [facility]ana Hospital Work Phone: Start: 79-44-9737ThzjjhVtcpui S Stojic MD, PhD Work Phone: NeurologyComment on above:Refill RequestPatient Update Start: 00-84-7672Nvmcwf-up encounterChdanny Millard MD Work Phone: ccf [facility] MAINStart: 09-08-2023 End: 89-29-0658Onxcoxj encounter procedureChdanny Millard MD Work Phone: [facility] DepartmentComment on above:Sinus node dysfunction (HCC) (Primary Dx); Cardiac pacemaker in situ; BradycardiaStart: 08-25-2023 End: 74-72-6199kahxgzelbnEhrjzhz [employer] Other [employer] Other start: 22-66-7773Dzqscu follow up visit related to original pxDeborah BladesFPG [facility] NeurosurgeryStart: 08-16-2023 End: 03-05-5618gkhokrgmroCwxodsl [employer] Other [employer] Other start: 20-45-3759Scmsbp follow up visit related to original pxDeborah BladesFPG [facility] NeurosurgeryStart: 08-13-2023 End: 79-13-7927avtsnrybsiKitbthsh Ball Other [employer] Other Start: 05-33-0857Lwcjtdrkr encounterBenjamin BallFPG [facility] ClinicStart: 08-12-2023 End: 78-67-0777jzatiqxsxsLupbajl [employer] Other [employer] Other start: 45-83-6806Kjazia follow up visit related to original pxDebea BladesFPG [facility] NeurosurgeryStart: 08-03-2023 End: 51-70-2050Uhlfmudwr to same day surgery centerDO Broderick Ball Work Phone: [facility]-Surgery Center Main [place] CityStart: 08-03-2023 End: 20-32-2271lbokdyoivtBF Broderick Ball Work Phone: [facility] Work Phone: Start: 08-02-2023 End: 01-28-5768ptmnfbwteqXevbxmto Ball Other [employer] Other Start: 89-56-2086Prhugkpzo encounterBenjamin BallKARISHMAJayna [facility] ClinicStart: 07-20-2023 End: 05-81-2358xonqjeeiynYD Broderick Howard Work Phone: [facility] Work Phone: Start: 07-20-2023 End: 05-37-9325Usmxbqs encounter procedureDO Broderick Howard Work Phone: [facility] Ivi-Cps-Tuklvqrp Testing Work Phone: Start: 07-09-2023 End: 19-66-3617thysqcggjjYlkicdv [employer] Other [employer] Other start: 15-19-5850Oeztplekm encounterDebea BladesFPG Referral CoordinatorStart: 07-07-2023 End: 68-11-5408vsfzrcsswvIfwjgaa [employer] Other [employer] Other start: 10-58-3607Trmixt outpatient new 45 minutes Nikidirk RmsFPG [facility] NeurosurgeryStart: 27-37-6684Gltuio-up encounter Kitty Millard MD Work Phone: [facility] MAINStart: 93-08-8859Itzvxcoue Remote F/Marychuy Millard MD Work Phone: [facility] DepartmentStart: 64-38-1473oaoiamjaqk Facility:9090Start: 06-04-2023 End: 38-43-0266serbzzdmqaMJ Broderick Howard Work Phone: [facility] Work Phone: Start: 06-04-2023 End: 18-58-6681Kiqhphx encounter procedureDO Broderick Howard Work Phone: [facility]-MRI Main [place] Work Phone: Start: 18-46-1189vxegliecoxUbunwnsv:9090Start: 05-14-2023 End: 52-67-3128gwiljrutruST Broderick Howard Work Phone: [facility] Work Phone: Start: 05-14-2023 End: 88-33-5880Rdctrfn encounter procedureDO Broderick Howard Work Phone: [facility]-Pacemaker CheckStart: 05-06-2023 End: 09-43-2518ljlxeelxduGqbdirx [employer] Other [employer] Other Start: 90-89-0034Duhpanq encounter procedureCameron MirthayFPG GastroenterologyStart: 05-03-2023 End: 45-69-4903bgbjramydvEzwnhwrv Ball Other [employer] Other Start: 95-84-1550Jzygdv outpatient visit 15 minutes [facility] ClinicStart: 61-43-9954Raxheofpi encounterBenjamin BallKARISHMAG [facility] ClinicStart: 03-29-2023 End: 47-07-0820yoccmucnarFD BRODERICK EQOSpendSmart [employer] Other Start: 99-83-6359Loyulgkvh encounterBenjaashley [facility] Medical ClinicStart: 03-25-2023 End: 99-84-3148rmfdzwuhuxDsvslvsk Ball Other [employer] Other Start: 38-15-5968Fifskm outpatient visit 25 minutes [facility]ick [facility] ClinicStart: 03-15-2023 End: 40-36-0548bbxqlbzmevECTLFJ H FAWWADFacility:E7Qrqgp: 05-78-4932Cfizzd-up encounterChdanny Millard MD Work Phone: ccf [facility] MAINStart: 18-98-7302Ojxzmdesz Remote F/UChdanny Millard MD Work Phone: [facility] DepartmentStart: 02-15-2023 End: 92-48-8944topjqonopnOSMHWI H FAWWADFacility:X2Lvbsi: 02-03-2023 End: 66-01-7440nwxzqtaoznYgeohna [employer] Other [employer] Other Start: 59-29-4042Rqxowdjmd encounterCameron DittyFPG GastroenterologyStart: 01-13-2023 End: 81-95-1318xwwgzvycfkQCVDXR H FAWWADFacility:A5Hnghm: 01-07-2023 End: 80-25-1464gbexrwjldnFdvergu [employer] Other [facility] [employer] Other Start: 10-27-4932Nzyfweo encounter procedureCameron DittyFPG GastroenterologyStart: 12-16-2022 End: 50-70-3422owbwfgevvtRIWYRC H FAWWADFacility:W8Hhgui: 11-25-2022 End: 75-34-7474ncqazkdexhXtmnpqzf Ball Other [facility] [employer] Other Start: 29-31-9579Lwlzad-up encounterChdanny Millard MD Work Phone: ccf [facility] MAINStart: 15-46-2438Ybftth outpatient visit 25 minutesBenmary jo HowardFPG [facility] ClinicStart: 11-25-2022 Pacemaker Remote F/Marychuy Millard MD Work Phone: [facility] DepartmentStart: 77-00-6596Ohjpxmj encounter procedureBenmary jo Howard Other [facility] [employer] Other Start: 11-16-2022 End: 28-21-9121hymzfcozgvRGTESC H FAWWADFacility:G3Ztumh: 20-88-0185Malsv health examinationDenew wayside [facility] [employer] Other [facility] [employer] Other start: 31-07-2396Nwvxhkbcylzyf examination normal Niki [employer] Other [employer] Other start: 10-15-2022 End: 18-39-3536xsspaquyjlWVDJIH H FAWWADFacility:W7Awqeu: 09-15-2022 End: 81-93-8791eqqgbncdvbWPIZIW H FAWWADFacility:Z2Erxtc: 09-10-2022 End: 07-05-1543Kczkywo encounter procedureAlejandro Villar MD, PhD Work Phone: NeurologyComment on above:Partial epilepsy with impairment of consciousness, intractable (HCC)Start: 26-46-8528Gbxaef-up encounterKitty Millard MD Work Phone: [facility] MAINStart: 95-51-6473Rgmhbzicz Remote F/Marychuy Millard MD Work Phone: [facility] DepartmentStart: 08-16-2022 End: 21-28-5483bdfsvhnruyKEESIG H FAWWADFacility:A1Jqhhq: 08-10-2022 End: 24-86-9083ueohuataegPL BRODERICK BALLFacility:M3Wcpki: 08-03-2022 End: 41-92-7258ijhikrvwqkRD BRODERICK BALLFacility:H1Ymnvh: 07-31-2022 End: 67-03-7952wkqdnptftzEA BRODERICK BALLFacility:N3Vcqdt: 07-29-2022 End: 52-14-4205jkrwonbwqhXQ BRODERICK BALLFacility:V4Guagg: 07-23-2022 End: 78-25-4981Ryzpgrv encounter procedureKitty Millard MD Work Phone: CardiologyComment on above:Chronic fatigue (Primary Dx)Start: 07-16-2022 End: 08-11-4483rpumkcnqsaEZMTXJ H FAWWADFacility:Y2Byber: 06-15-2022 End: 77-30-0641vmljpsgrrqUHBGXF H FAWWADFacility:X5Pniuh: 06-08-2022 End: 53-90-3065gjbvnhubfoJV BRODERICK BALLFacility:D1Upucp: 05-15-2022 End: 01-89-9909avtiwkeydzAL BRODERICK HOWARDFacility:E4Frbcx: 01-06-2022 End: 49-86-4321sggsjbzjpcItpfkxc Ditty Other [facility] [employer] Other Start: 89-19-5481Eyeiysc encounter procedureCamkiley ShannonyFPG GastroenterologyStart: 10-14-2020 End: 62-62-6659Qpd-procedure evaluation checkDeborah Blades Other [facility] [employer] Other Procedures DateProcedureProcedure DetailPerforming ClinicianStart: 21-78-2858GE lumbar spine wo conBenjamin Ball DO Work Phone: Start: 01-01-6908TR screening mammo BI w/CADBenjamin Ball DO Work Phone: Start: 17-07-1976QE of abdomen and pelvis without contrastBenjamin Ball DO Work Phone: Start: 39-18-3811Qervesbh identified in Blood by CultureBenjamin Ball DO Work Phone: Start: 53-87-0748SjxgoxobupyZjjcwwt Rhiew Start: 29-59-4064Wtm routine ecg w/least 12 lds i&r onlyCcf ProviderStart: 41-16-2283UG lumbar spine wo conDO Broderick Ball Work Phone: Start: 10-18-2287RGA of lumbar spine with contrastDO Broderick Ball Work Phone: Start: 78-05-4220BTHECCTEA REMOTE CHECKChristine Pascual Millard MD Work Phone: Start: 96-85-9584SWGDUYTVG CLINIC CHECKChristine Pascual Millard MD Work Phone: Start: 27-17-8918Tzxmetbi of lumbar intervertebral discDO Broderick Howard Work Phone: Start: 63-88-7005Y-ray of lumbar spine, single viewDO Broderick Howard Work Phone: Start: 94-92-9096SWJMYYACN REMOTE CHECKChdanny Millard MD Work Phone: Start: 37-68-9682PDP of lumbar spine with contrastDO Broderick Howard Work Phone: Start: 22-97-8996SC pre/post mri xrayDO Broderick Howard Work Phone: Start: 09-88-4294CIMMYNCOX REMOTE CHECKChdanny Millard MD Work Phone: Start: 86-06-0212ULOTNNYLI REMOTE CHECKChdanny Millard MD Work Phone: Start: 38-82-4888WFTOLDKNH REMOTE CHECKKitty Millard MD Work Phone: Start: 50-41-5027Cuaertneo for malignant neoplasm of colonDenew [facility]ide [facility] [employer] Other start: 18-19-5857Oqqwnglxy mammographyDeborah [employer] Other start: 50-58-5735EampuofmgjmiTqwtekn Rhiew Arthroscopy of shoulderShashi De Souza Cardiac pacemaker, device (physical object)Shashi De Souza Cataract surgeryRichjeffrey Mossw CholecystectomyShashi Mossw ColonoscopyRcallie Mossw End: 86-46-0843Ywlsluvupj screeningDeborah Blades Other esophagogastroduodenoscopyShashi De Souza Hammer toe operationRichjeffrey De Souza History of cervical laminectomyShashi De Souza Comment on above:DR Ortez of lumbar laminectomyShashi De Souza Comment on above:2022 Dr Weeks - Doreen of Whipple procedureShashi De Souza Comment on above:2015Implantable venous catheter, device (physical object)Shashi De Souza Lobectomy of brainShashi De Souza Comment on above:2014 Plan of Treatment DateCare ActivityDetailAuthorStart: 11-12-1694Cjccnkws ScreeningDiabetes ScreeningTrinity Health System Twin City Medical Centertart: 54-12-4817ZI Controlled (<130/80)BP Controlled (<130/80)[facility] Centertart: 01-09-2026 End: 65-31-6027Huoozzz encounter zodlisywr26/25/2026 11:00 AM EST Office Visit Neurology [address] [place] [id number] Alejandro Villar MD, PhD [address] [place] [address] annaul follow upNeurologyComment on above:annaul follow up Start: 41-49-5610PC Controlled (<130/80)BP Controlled (<130/80)[facility] Start: 42-17-6012OG Controlled (<130/80)BP Controlled (<130/80)[facility] Start: 10-30-2025 End: 60-89-9113Zjlebml encounter lwbkwqlyo96/16/2025 10:30 AM EST Office Visit Neurology [address] [place] [address] [place] [address] [address] [place] [address] BotoxNeurologyComment on above:BotoxStart: 07-18-2025 End: 55-72-6383Lysajqv encounter ciujsmfpc56/03/2025 10:00 AM EDT Office Visit Neurology [address] [place] [address] [place] [address] [address] [place], [place] [id number] BotoxNeurologyComment on above:BotoxStart: 68-72-8009Frmmojljk vaccination Influenza Vaccine (#1)[facility] Centertart: 32-21-9242Smdpswa referralSelect [facility] Work Phone: Start: 05-21-2025 End: 05-98-5474Zzomlid encounter zhgueoont41/07/2025 8:00 AM EDT Office Visit Neurology [address] [address] Elian Jones DO [address] [place] [address] MCI (mild cognitive impairment) [G31.84]NeurologyComment on above:MCI (mild cognitive impairment) [G31.84]Start: 04-10-2025 End: 75-85-5940Imwylcb encounter yqpzdylxu59/27/2025 11:30 AM EDT Office Visit Neurology [address] [place] [address] [place] [address] [address] [place] [address] BotoxNeurologyComment on above:BotoxStart: 32-67-7897VRW Vaccine (1 - 1- dose 75+ series)RSV Vaccine (1 - 1-dose 75+ series)[facility] Centertart: 01-05-2025 End: 98-78-3602Lxsdyep encounter ujolkllky35/21/2025 12:00 PM EST Office Visit Neurology [address] [place] [address] Svitlana Mayfield APRN.COSTUMED CHARACTER [address] [place] [address] BotoxNeurologyComment on above:BotoxStart: 01-04-2025 End: 64-28-4236Ijazhoq encounter slbvkowwn92/20/2025 2:00 PM EST Office Visit Neurology [address] [place] [address] Alejandro Villar MD, PhD [address] [place] [address] Follow upNeurologyComment on above:Follow upStart: 12-12-2024 End: 83-01-8032Dkyrsmt encounter bugypjvwk20/28/2025 11:00 AM EST Office Visit Neurology [address] [place] [address] [place] [address] [address] [place] [address] BotoxNeurologyComment on above:BotoxStart: 38-91-0794SEKIMFSH SCREEN DIABETES SCREENTrinity Health System Twin City Medical Centertart: 79-03-1583Wjbpcuog ScreeningDiabetes ScreeningTrinity Health System Twin City Medical Centertart: 75-02-8237HjzgledaoRegency Hospital [facility]edo Start: 78-95-5678Ecmaneog identified in Blood by CultureBlood CultureMercy Health Defiance Hospitaltart: 53-18-6045Ezzgyri Directive DiscussionAdvance Directive DiscussionTrinity Health System Twin City Medical Centertart: 01-01-2025Medicare Advantage Annual Wellness VisitMedicare Advantage Annual Wellness VisitTrinity Health System Twin City Medical Centertart: 10-02-2024 End: 88-22-4315Qwvmuzh encounter huidwramc81/18/2024 2:40 PM EST Office Visit Cardiology [address] [place] [address] echo CardiologyComment on above:echoStart: 09-05-2024 End: 57-79-9445Tjteshl encounter hloblsswu26/22/2024 1:30 PM EDT Office Visit Neurology [address] [place] [address] [place] [address] [address] [place] [address] BotoxNeurologyComment on above:BotoxStart: 08-31-2024 End: 93-62-6549Infvgwn encounter /17/2024 10:00 AM EDT Office Visit Cardiology [address] [place] [address] [place] [address] [place], [place] [phone] return in about 1 year (around 09/08/2024)Cardiology Comment on above:return in about 1 year (around 09/08/2024)Start: 07-16-2024 Covid-19 Vaccine ( season)Covid-19 Vaccine ( season) [facility] Centertart: 73-56-5296Caghwyena vaccinationInfluenza Vaccine (#1) [facility] Centertart: 06-29-2024 End: 47-60-7977Pjbtrzf encounter zmipthlfw04/15/2024 1:00 PM EDT Office Visit Neurology [address] [place] [address] Alejandro Villar MD, PhD [address] [place] [place], [place] [id number] Follow Up-rescheduled from 06/22NeurologyComment on above:Follow Up- rescheduled from 06/22Start: 56-99-8697Prvoaov [facility] Work Phone: Start: 30-60-3441Rfvxnqt Directive DiscussionAdvance Directive DiscussionTrinity Health System Twin City Medical Centertart: 60-76-6283LhorqvjgaMercy Health Defiance Hospitaltart: 89-39-1023Wmamejhb admissionMercy Health Defiance Hospitaltart: 24-75-9670WqiwtentoMercy Health Defiance Hospitaltart: 61-81-3480Pujkd-19 Vaccine ( season)Covid-19 Vaccine ( season)[facility] Centertart: 39-16-7414Nqgzcjibo vaccinationTrinity Health System Twin City Medical Centertart: 59-40-9198VZMMHUL DIRECTIVE DISCUSSIONADVANCE DIRECTIVE DISCUSSIONTrinity Health System Twin City Medical Centertart: 09-10-2022 End: 31-32-7360mhqTMMSEagtxq [Mass/volume] in Serum or PlasmaOhiohealth Doctors Hospital Work Phone: Comment on above:Expected: 09/10/2022, Expires: 11/10/2022tart: 09-10-2022 End: 10-97-1798Ylrbliaeix [Mass/volume] in Serum or PlasmaOhiohealth Doctors Hospital Work Phone: Comment on above:Expected: 09/10/2022, Expires: 11/10/2022tart: 28-85-7597Ahwknzdbt vaccinationINFLUENZA (#1)[facility] Start: 26-81-6413Whfniiiiz for malignant neoplasm of colonTrinity Health System Twin City Medical Centertart: 54-57-3031NQPOODL DIRECTIVE DISCUSSIONADVANCE DIRECTIVE DISCUSSIONTrinity Health System Twin City Medical Centertart: 85-93-4807Shxzradbvvcc Vaccine: 50+ (2 of 2 - PCV)Pneumococcal Vaccine: 50+ (2 of 2 - PCV)[facility]: 71-10-3956Fojlzxicloww Vaccine: 65+ (2 - PCV)Pneumococcal Vaccine: 65+ (2 - PCV)[facility]: 71-85-2488Gymugzfyyqzr Vaccine: 65+ (2 of 2 - PCV)Pneumococcal Vaccine: 65+ (2 of 2 - PCV)[facility]art: 91-15-5350CZQK DENSITYBONE DENSITYTrinity Health System Twin City Medical Centertart: 27-70-5449Ssnt Density ScreeningBone Density ScreeningTrinity Health System Twin City Medical Centertart: 00-76-1431Fxjluxcvuupx Vaccine: 65+ Years (1 of 1 - PCV) Pneumococcal Vaccine: 65+ Years (1 of 1 - PCV)[facility] HealthcareStart: 2015 PNEUMOCOCCAL: 65+ (1 - PCV)PNEUMOCOCCAL: 65+ (1 - PCV)[facility] Centertart: 43-67-7734Qnfisypbo for osteoporosisBone Density ScreeningTrinity Health System Twin City Medical Centertart: 86-59-5237KOB Vaccine (1 - 1-dose 60+ series)RSV Vaccine (1 - 1-dose 60+ series)[facility]: 92-30-4303API Vaccine (1 - Risk 60-74 years 1-dose series)RSV Vaccine (1 - Risk 60-74 years 1-dose series)[facility] Cent[facility]art: 37-54-4559UWGDMAOF VACCINE (1 of 2)SHINGRIX VACCINE (1 of 2)[facility] Start: 80-51-6454BAACLCZYD (FIT-DNA)COLOGUARD (FIT-DNA)[facility] Centertart: 25-83-7482SzqgozjyeeiFKMBEBCQDYGBnwifjhmk ClinicStart: 89-58-2955SHLDJZFXJA CANCER SCREENINGCOLORECTAL CANCER SCREENINGTrinity Health System Twin City Medical Centertart: 74-54-8298EU COLONOGRAPHYCT COLONOGRAPHYTrinity Health System Twin City Medical Centertart: 04-57-6975VLIHM OCCULT BLOOD FECAL OCCULT BLOODTrinity Health System Twin City Medical Centertart: 96-07-1149Blkxg 1996 panel - Serum or PlasmaLipid ScreeningTrinity Health System Twin City Medical Centertart: 98-62-0008Vnlac panelLipid Screening [facility] Centertart: 72-51-7632ZCMBE SCREENLIPID SCREENTrinity Health System Twin City Medical Centertart: 39-25-6587Ebygstoiw for malignant neoplasm of colonTrinity [facility] System [facility] Centertart: 75-84-5349RWGXKPCWKCVMSUMVBOFDSXNTUECicyzomrx ClinicStart: 81-74-2994Vtnxvnmjghe [facility] Centertart: 11-72-5547Nkgkhaobv for malignant neoplasm of breast [facility] Centertart: 68-07-0437Pbxmw microalbumin profileSumma Health Start: 08-84-5610GNHIYY PCP TEAM CHRONIC DISEASE VISITANNUAL PCP TEAM CHRONIC DISEASE VISITTrinity Health System Twin City Medical Centertart: 42-18-3043YP CONTROLLED (<130/80)BP CONTROLLED (<130/80)[facility] Centertart: 92-30-0727CKOHXKHDS C SCREENING HEPATITIS C SCREENINGTrinity Health System Twin City Medical Centertart: 82-20-1074Tjtxzcvkz C screening Hepatitis C ScreeningTrinity Health System Twin City Medical Centertart: 61-18-1581OOTTB-19 VACCINE (#1) COVID-19 VACCINE (#1)[facility] Centertart: 92-34-2084Dywzmsfgo for malignant neoplasm of colonNOMS HealthcareBACH SCREENING TESTBACH SCREENING TEST Procedures Routine Memory loss Ordered: 01/04/2025[facility] Work Phone: comment on above:Ordered: 01/04/2025 End: 14-28-5967QDX COMPLETEECG COMPLETE ECG Routine Chronic fatigue 1 Occurrences starting 07/23/2022 until 07/23/2023[facility] Work Phone: Comment on above:1 Occurrences starting 07/23/2022 until 07/23/2023ECG COMPLETEECG COMPLETE ECG Routine Sinus node dysfunction (HCC) Cardiac pacemaker in situ Bradycardia Ordered: 09/08/2023[facility] Work Phone: Comment on above:Ordered: 09/08/2023ECG COMPLETEECG COMPLETE ECG Routine Sinus node dysfunction (HCC) Ordered: 08/31/2024[facility] Work Phone: Comment on above:Ordered: 08/31/2024 End: 69-69-2675XeoehfduecyhcgswBCYO Cardiology Routine Sinus node dysfunction (HCC) 1 Occurrences starting 08/31/2024 until 08/31/2025[facility]Comment [facility]:1 Occurrences starting 08/31/2024 until 08/31/2025MG Breast - bilateral ScreeningReg[facility] Hospital ToledoMG Breast - bilateral Screening [facility] ToledoPatient EducationParma Community General [facility]tr Work Phone: Patient referralParma Community General Hospital [facility]tr Work Phone: Renal function 2000 panel - Serum or PlasmaRegency Hospital ToledoRenal function 1999 panel - Serum or [facility] HospitalRenal function 1999 panel - Serum or [facility] HospitalRenal function 2000 panel - Serum or [facility] HospitalUS Lower extremity vein - bilateralRegency Hospital ToledoUS Lower extremity vein - rightTr[facility]dale [facility] Immunizations Immunization DateImmunizationNotesCare LzexsmrsRhebriub78-41-6227maebxjall, high dose seasonal, preservative-freeBenjamin Ball DO Work Phone: [facility]10-15-2024influenza, high dose seasonal, preservative-freeDO Broderick Ball Work Phone: [facility]10-15-2024influenza virus vaccine, unspecified formulationNicjenniferas Karen DO Work Phone: [facility] HealthRldcpn72-73-4350xxjeyymad virus vaccine, unspecified formulationRanda Reilly MD Work Phone: [facility] HealthRyyzyg62-62-6203sfxpsrgoq virus vaccine, split virus (incl. purified surface antigen)Niki Blades Other [employer] Other 09-726626-54-2832bkifqkgji virus vaccine, unspecified formulationRegency Hospital Toledo10-27-2021COVID-19 mRNA-1273 (Moderna)DO Broderick Ball Work Phone: [facility]09-15-2021influenza virus vaccine, split virus (incl. purified surface antigen)Niki Blades Other [employer] Other 09-737509-11-8315dxyioidzi virus vaccine, unspecified formulationRegency Hospital Toledo03-02-2021COVID-19 mRNA-1273 (Moderna)DO Broderick Ball Work Phone: [facility]02-02-2021COVID-19 mRNA-1273 (Moderna)DO Broderick Ball Work Phone: [facility]10-20-2020influenza virus vaccine, split virus (incl. purified surface antigen)Niki Blades Other [employer] Other 10-588689-78-4209fokxdawwy virus vaccine, unspecified formulationRegency Hospital Toledo10-09-2019influenza virus vaccine, split virus (incl. purified surface antigen)Niki Blades Other [employer] Other 10454264-28-8925nzwhbivzq virus vaccine, unspecified formulationRegency Hospital Toledo10-24-2018influenza virus vaccine, split virus (incl. purified surface antigen)Niki Blades Other [employer] Other 10-880653-97-6381bxxsmnica virus vaccine, unspecified formulationRegency Hospital Toledo03-23-2018pneumococcal polysaccharide vaccine, 23 valentDeborah Blades Other [facility] Payers DatePayer CategoryPayerPolicy [id number]-rlo [id number] 2025Medicare (Managed Care) [id number] 1.2.840.827597.1.13.159.2.7.3.293724.82884-54-0460IrffrmyOEJK6Y 2.16.840.0.936687.67206228-21-7497[employer] Health InsuranceCIGNA CIGNA MEDICARE SUPPLEMENT [id number] 2015-Present [phone] [address] DEVI MERCEDES [phone] [id number] 2013Medicare 1.2.840.103540.1.1[id number] [id number] 2.16.840.5.053642.762619 [id number] 2.16.840.3.505786.5768-08-1950 [id number] 2.16840.1.009207.3.57[id number] 2.16840.1.864793.3.579.2.33117-69-3850Bfydlvi0553570 2.16.840.1.685526.3.579.2.27419-89-1266Atueaio4815389 2.16840.1.210901.3.579.2.97822-02-8594Jzijgtv5346062 2.16.840.1.428692.3.579.2.74458-71-7340Ctapxdq4791653 2.16.840.1.890127.3.579.2.60592-36-8880Tlpsgnf2210305 2.16.840.1.113809.3.579.2.20485-68-7361Mrlpfsn0045233 2.16.840.1.308521.3.579.2.38730-59-2431Toaoein4434191 2.16840.1.985293.3.579.2.41564-96-8385Cdvjsii0164948 2.16840.1.332241.3.579.2.51305-56-8558Dfqzaya8464765 2.16840.1.363267.3.579.2.16218-10-8253Slccnco5199733 2.16840.1.547568.3.579.2.87424-63-1794Vgmgluo3452630 2.16840.1.073498.3.579.2.06153-83-9273Stgyplv4116388 2.16.840.1.535120.3.579.2.97894-37-8878Ozpyrns6940946 2.16.840.1.983739.3.579.2.23007-07-3754Vggpuyy8307256 2.840.1.602938.3.579.2.61860-63-7822Mlrypbv9057447 2.840.1.620704.3.579.2.83161-45-7719Jstsgvp940548652 2.840.1.486004.3.579.2.10068-22-8720Qzjyeto778427883 2.840.1.806544.3.579.2.15112-67-0146Rivdtbv24865823 2.840.1.143783.3.579.2.01828-56-9802Jeegkgv12255645 2.840.1.510654.3.579.2.41878-80-9940Bxghbug76965296 2.840.1.404402.3.579.2.09261-42-7187Chookys78671489 2.840.1.299231.3.579.2.62418-37-4794Jhhbtzr36399762 2.840.1.801598.3.579.2.83497-99-4901Rfryuje1122004 2.840.1.927008.3.579.2.222231-27-9940Omqdxls3213598 2.840.1.651114.3.579.2.076702-74-1129Oqqwkoi8909843 2.840.1.233783.3.579.2.656622-24-7420Emqebyt8873902 2.16.840.1.717533.3.579.2.226496-01-7273Zbqyuve5393390 2.16.840.1.675249.3.579.2.710873-82-8513Ztmmkbr7001601 2.16.840.1.629635.3.579.2.910689-37-3246Tqyxbjx17936027 2.16.840.1.527787.3.579.2.20981-16-0746Zdoemcl992377648 2.16.840.1.940832.3.5[id number] 2.16.840.1.981511.3.579.2.598Qakyuav93174972 2.16.840.1.056413.3.579.2.531 Ewhxouv77983844 2.16.840.1.986513.3.579.2.531 Social History DateTypeDetailFacilityStart: 09-10-2022 End: 15-79-2767Isv [facility]: 02-19-2011 End: 04-18-8430Yzyjxvg smoking status NHISNever smoked tobaccoSumma Health Start: 02-19-2011 End: 42-88-5427Tyiumdj use and exposureSmokeless tobacco non-userTrinity Health System Twin City Medical Centertart: 11-28-2021 End: 06-81-5058Iqvtfns intakeCurrent non-drinker of alcohol (finding)[facility] Centertart: 29-33-9697Flg Assigned At BirthNot on fileTrinity Health System Twin City Medical Centertart: 07-13-2022 End: 99-39-2410Qobhvfcc to SARS-CoV-2 (event)Not sureTrinity Health System Twin City Medical Centertart: 18-63-8152Rag Assigned At BirthMagruder Hospitaltart: 09-10-2022 End: 24-57-5701Tzifzff of Social functionTrinity Health System Twin City Medical Centertart: 08-85-5748Eonnp Depression Screening Uallztyucx5Lecclfeto ClinicTorockville general hospital smoking statusNo Smoking Status EnteredSelect Medical Specialty [facility], Inc Start: 11-17-2024 End: 24-26-6721UvqGygmze (finding)[facility] Hospitaltart: 13-60-8623Vmgvopast beverage intakeCurrent drinker of alcohol (finding)[facility] Medical Equipment Procedure CodeEquipment CodeEquipment Original TextEquipment IdentifierDates Plate Bn 12mm Cmf Ti 2 H Lp - [id number]: 75-32-4718Dtr Crss Sd Scr 1.5x4mm - [id number]: 01-64-6468Xstgmotxr-A2dr01 Advisa [id number]_xutYlgzm: 84-55-3616296349 5076 [employer] [id number]: 99-75-3017380223 5076 [employer] [id number]: 05-22-2015 Goals DatePatient GoalDesired Activity/StatePersonal health goal Functional Status UrtjSfxlykflujWpbistOkaphehz53-52-7781Tjkjxnadle StatusNoSelect Medical Specialty [facility], Inc09-21-2023Functional statusPatient at BaselineSelect Medical Specialty [facility] Work Phone: [phone]) 526-264610967751-24-1777Wbo you deaf, or do you have serious difficulty hearingNo 08/19/2015 11:02 AM Vita Elizondo (Rn) (Hist), RN No [facility] HealthYukgxa08-79-6108Zur you blind, or do you have serious difficulty seeing, even when wearing glassesNo 08/19/2015 11:02 AM Vita Elizondo (Rn) (Hist), RN NoCKettering Health HamiltonAvpcet71-42-7830Yj you have serious difficulty walking or climbing stairsNo 08/19/2015 11:02 AM Vita ElizondoRn) (Hist), RN No [facility] HealthDnvxag12-42-8579Lo you have difficulty dressing or bathingYes 08/19/2015 11:02 AM Vita Elizondo) (Hist), RN [facility] 51-63-0820Kwhldfd of a physical, mental, or emotional condition, do you have difficulty doing errands alone such as visiting a physician's office or shopping Yes 08/19/2015 11:02 AM Vita Elizondo) (Hist), RN [facility] Mental Status FlquLbtnjlphupNjjpzaYzonknlb90-59-9992Osxwtqrpo functionCognitive Status Patient at BaselineSelect [facility] Special[facility] Work Phone: [phone]) 503-65611622065-20-4000Zvzujdc of a physical, mental, or emotional condition, do you have serious difficulty concentrating, remembering, or making decisionsNo 08/19/2015 11:02 AM Vita Elizondo) (Hist), RN [facility] Clinical Notes 01-24-2015 to 07-18-2025 Note Date & YudpMohtYaknzmuq49-69-7439 NoteHNO ID: [id number] Author: RANDA REILLY MD Service: ? Author Type: Physician Type: Progress Notes Filed: 07/18/2025 12:52 Note Text: PROGRESS NOTE- HEADACHE MEDICINE SERVICE DATE: July 18, 2025 Location: [facility] Participants: patient, and provider [...] or WENDY Randa Reilly MD [facility] InstituteLakeville HospitalTgvwchdn64-53-4594 History of Present illness Narrative* Randa Reilly MD - 07/18/2025 10:24 AM EDT PROGRESS NOTE- HEADACHE MEDICINE SERVICE DATE: July 18, 2025 Location: [facility] Participants: patient, and provider [...] or WENDY Randa Reilly MD [facility] * Lon Alexander RN - 07/18/2025 9:59 [...] Blanc RN Botox, 2 vials: Lot # [id number] Exp 09/2027 Lot # [id number] Exp 09/[address] Reilly to administer and verified order. documented in this encounterSumma Health09-03-2025 NoteHNO ID: [id number] Author: RANDA REILLY MD Service: ? Author [...] Injection Sites Muscle Fixed Site/Fixed Dose Bilat Yardage Control Operator Forming 20 U divided in 2 sites Procerus [...] wasted: 0 Randa Reilly MD [facility] InstituteLakeville HospitalNldrtrou71-41-5942 Procedure note* Randa Reilly MD - 07/18/2025 [...] Injection Sites Muscle Fixed Site/Fixed Dose Bilat Yardage Control Operator Forming 20 U divided in 2 sites Procerus [...] Total Units wasted: 0 Randa Reilly MD [facility]09-03-2025 Procedure note* Randa Reilly MD - 07/18/2025 [...] Injection Sites Muscle Fixed Site/Fixed Dose Bilat Yardage Control Operator Forming 20 U divided in 2 sites Procerus [...] wasted: 0 Randa Reilly MD [facility] documented in this encounterSumma Health09-03-2025 NoteHNO ID: [id number] Author: LON ALEXANDER RN Service: ? Author [...] Blanc RN Botox, 2 vials: Lot # [id number] Exp 09/2027 Lot # [id number] Exp 09/[address] Reilly to administer and verified order.[facility] 07-02-2025 Evaluation note* Diagnosis Onset Date Resolution Status Admit Date Age-related osteoporosis without current pathological fracture acuteAugust 2024 2:50pmChronic kidney diseaseacuteAugust 2024 2:50pm Gastroesophageal reflux disease with esophagitis without hemorrhageacuteAugust 2024 2:50pmHistory of pancreatic canceracuteAugust 2024 2:50pm HypertensionacuteAugust 2024 2:50pmLumbar stenosis with neurogenic claudicationacuteAugust 2024 2:50pmMajor depressionacuteAugust 2024 2:50pmMedicare annual wellness visit, subsequentnoneactiveAugust 2024 2:50pmScreening mammogram for breast cancernoneactiveAugust 2024 2:50pm [facility] Work Phone: 1(683) 435-386408-18-2025 Evaluation note* Diagnosis Onset Date Resolution Status [...] chronic kiacuteOctober 2024 9:36amSecondary hyperparathyroidismacuteOctober 2024 9:36am [facility] Work Phone: 1(343) 162-869308-18-2025 Evaluation note* Diagnosis Onset Date Resolution Status [...] 2024 9:36amSecondary hyperparathyroidismacuteOctober 2024 9:36amNauseaacuteOctober 2024 9:35am [facility] Work Phone: 1(399) 655-572207-07-2025 Instructions* Patient Instructions* Jyoti Crowley MD - [...] much intensity you could go. Source : www.[facility] Dietary Modifications: Increase the amount of vegetables [...] high glycemic index: instant rice, mashed potatoes, Uzbek fries bagels, baguettes, vanilla wafers processed cereals (Cheerios, Wilson-Puffs, corn/bran flakes, Total, etc.) Avoid foods high in total fat, especially saturated fats and cholesterol Eat foods rich in Warren-3 fatty acids (fish, olive oil, nuts) For More Information on the Mediterranean and the MIND Diet Visit: https://www.deena.nih.gov/health/al udfddekq-wli-gdmxsmog/uees-ji-cd-fmtl-lkcfh-kdkz-blx-mdeszfvvod-sowcljtzdr-disea se Source : [employer] Memory Workouts: In some studies, participation in [...] a Musical Instrument Dancing (ballroom) Computer Games/Apps: [employer] or [employer] phone application Tasks to improve attention/working memory: [...] et al. The Lancet, Volume 396, Issue 90499, [phone] Patient Education Section : Fall Prevention As [...] include walking, swimming, and Panda Chi (a Maltese martial art that involves slow, gentle movements). [...] health and independence. documented in this encounterSumma Health07-07-2025 NoteHNO ID: [id number] Author: KALIN GUAMAN OCCA Service: ? 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 Vital Signs: There were no vitals taken for this visit.[facility]07-07-2025 History of Present illness Narrative* Kalin Guaman OCCA - 05/21/2025 8:03 AM EDT Cassi Rodrigez is a 75 year old year old left handed woman Accompanied by: spouse. 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 Vital Signs: There were no vitals taken for this visit. * Elian Jones DO - 05/21/2025 8:00 AM EDT Images from the original note were not included. [facility] New Patient Evaluation Cassi Rodrigez : 1950 05/21/2025 8:00 AM Chief Complaint: memory concern I had the pleasure of seeing this 75 year old year old female at the [facility]. The patient is referred [...] She was advised to follow up at [facility] for further evaluation of her memory [...] has pain on motion Brief Neuropsychiatric Evaluation: [place] Cognitive Assessment (MoCA) Version 7.1 Total Score: 27/30 Visuospatial/Executive Alternating Benton Making: Patient successfully draws the pattern without [...] recalled (+1) Word 3: Required multiple choice- 'nondenominational, school, hospital' (0) Word 4: Required category [...] which included preparing to see the patient, ygfg-cf-eesd patient care, performing a medically appropriate examination, [...] Time: 2:35 PM documented in this encounterSumma Health07-07-2025 NoteHNO ID: [id number] Author: ELIAN JONES DO Service: ? Author Type: Physician Type: Progress Notes Filed: 05/23/2025 14:36 Note Text: [facility] New Patient Evaluation Cassi [...] She was advised to follow up at [facility] for further evaluation of her memory [...] medication for their flor (more content not included)...[facility]05-27-2025 NoteHNO ID: [id number] Author: RANDA REILLY MD Service: ? Author [...] Injection Sites Muscle Fixed Site/Fixed Dose Bilat Yardage Control Operator Forming 20 U divided in 2 sites Procerus [...] Total Units wasted: 0 Randa Reilly MD [facility]05-27-2025 Procedure note* Randa Reilly MD - [...] Injection Sites Muscle Fixed Site/Fixed Dose Bilat Yardage Control Operator Forming 20 U divided in 2 sites Procerus [...] Total Units wasted: 0 Randa Reilly MD [facility]05-27-2025 Procedure note* Randa Reilly MD - 04/10/2025 [...] Injection Sites Muscle Fixed Site/Fixed Dose Bilat Yardage Control Operator Forming 20 U divided in 2 sites Procerus [...] Total Units wasted: 0 Randa Reilly MD [facility] documented in this encounterSumma Health05-27-2025 NoteHNO ID: [id number] Author: LON ALEXANDER RN Service: ? Author [...] Farfan RN Botox, 2 vials: Lot # [id number] 08/2027 Lot # [id number] 08/[address] Reilly to administer and verified order.[facility] 04-10-2025 History of Present illness Narrative* [...] Farfan RN Botox, 2 vials: Lot # [id number] Exp 08/2027 Lot # [id number] Exp 08/[address] Reilly to administer and verified order. * aRnda Reilly MD - 04/10/2025 11:20 AM EDT PROGRESS NOTE- HEADACHE MEDICINE SERVICE DATE: April 10, 2025 Location: [facility] Participants: patient, and provider [...] with me or WENDY Randa Reilly MD [facility] documented in this encounterSumma Health05-27-2025 NoteHNO ID: [id number] Author: RANDA REILLY MD Service: ? Author Type: Physician Type: Progress Notes Filed: 04/10/2025 12:19 Note Text: PROGRESS NOTE- HEADACHE MEDICINE SERVICE DATE: April 10, 2025 Location: [facility] Participants: patient, and provider [...] or WENDY Randa Reilly MD [facility]02-21-2025 NoteHNO ID: [id number] Author: DAVINA BRENNAN RN Service: ? Author [...] by: Evonne Adamsox, 2 vials: Lot # [id number] Exp 02/2027 Lot # [id number] Exp 02/2027 Botox handed to Svitlana Mayfield CNP to administer and verified order.[facility] HospitalKtpjcmbw91-17-4269 History of Present illness Narrative* Davina Brennan [...] Hamm RN Botox, 2 vials: Lot # [id number] Exp 02/2027 Lot # [id number] Exp 02/2027 Botox handed to Svitlana Mayfield [...] for migraine Informed Consent Consent Obtained: Written Hanson Protocol A moment to CARE was completed [...] applicable Written Consent Obtained: Written LOT #: [id number] Expiration Date: Month: Year: 2026 Second vial: LOT #: [id number] Expiration Date: Month: Year: 2026 Injection Sites Left (Units) Left (Sites) Right (Units) Right (Sites) TOTAL (Units) Yardage Control Operator Forming 5 1 5 1 10 Procerus Units: [...] which included preparing to see the patient, eyjn-rj-wovz patient care, completing clinical documentation, obtaining and/or reviewing separately obtained history, counseling and educating the patient/family/caregiver, and ordering medications, tests, or procedures. Svitlana Mayfield APRN.NIC documented in this encounterSumma Health02-21-2025 Instructions* Patient Instructions* Svitlana Mayfield APRN.CNP - [...] next Botox Injection documented in this encounterSumma Health02-21-2025 NoteHNO ID: [id number] Author: SVITLANA MAYFIELD APRN.NIC Service: ? Author [...] for migraine Informed Consent Consent Obtained: Written Hanson Protocol A moment to CARE was completed [...] applicable Written Consent Obtained: Written LOT #: [id number] Expiration Date: Month: 4 Year: 2026 Second vial: LOT #: [id number] Expiration Date: Month: 4 Year: 2026 Injection Sites Left (Units) Left (Sites) Right (Units) Right (Sites) TOTAL (Units) Yardage Control Operator Forming 5 1 5 1 10 Procerus Units: [...] no evidence of procedural (more content not included)...[facility] HospitalYvuniaqq56-70-0365 History of Present illness Narrative* Alejandro Villar MD, PhD - 01/04/2025 2:00 PM EST [facility] Patient Name: Cassi Rodrigez Date of : 1950 ESTABLISHED [facility]LE[facility]Y [facility]IC NOTE 01/04/2025 2:00 PM Reason for Visit: Follow Up Clinical Summary: Ms. Rodrigez is a 74 year old right-handed female seen in [facility]. There is no one accompanying [...] these though last was several years ago. 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 -Vocation: -Education: -Cigarette, [...] which included: preparing to see the patient iqre-gx-ypjn patient care completing clinical documentation obtaining and/or reviewing separately obtained history counseling and educating the patient/family/caregiver ordering medications, tests, or procedures independently interpreting results (not separately reported) communicating results to the patient/family/caregiver Alejandro Villar MD, PhD cc: Primary Care Physician: Broderick Howard, [address] [address] Referring: Patient: Ms. Cassi Rodrigez [id number] [id number] documented in this encounterSumma Health02-20-2025 NoteHNO ID: [id number] Author: ALEJANDRO VILLAR MD, PhD Service: ? Author Type: Physician Type: Progress Notes Filed: 01/04/2025 14:17 Note Text: [facility] Patient Name: Cassi Rodrigez Date of : 1950 ESTABLISHED EPILEPSY CLINIC NOTE 01/04/2025 2:00 PM Reason for Visit: Follow Up Clinical Summary: Ms. Rodrigez is a 74 year old right-handed female seen in [facility]. 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 Requested Prescriptions Signed Prescriptions Disp Refills zonisamide (ZONEGRAN) 100 mg capsule 270 capsule 1 Sig: Take 3 capsules by mouth daily at bedtime. Authorizing Provider: ALEXI COLINDRES PA-C [facility]01-27-2025 Miscellaneous Notes* Telephone Encounter - Alexi Colindres [...] by: patient Please E-Scribe Caller Contact Number: [phone] (home) Pharmacy Name: [facility] Pharmacy Number: [phone] Generic/ brand: generic 30 or 90 day supply requested: 90 Last appointment: 06/29/24 Next Appointment: 01/04/[address] guido Rodrigez [id number] [facility] [address] documented in this encounterSumma Health01-27-2025 Telephone encounter Note * Telephone Encounter - Maranda Moreno - 12/11/2024 10:27 AM EST Prescription Refill: Requested by: patient Please E-Scribe Caller Contact Number: [phone] (home) Pharmacy Name: [facility] Pharmacy Number: [phone] Generic/ brand: generic 30 or 90 day supply requested: 90 Last appointment: 06/29/24 Next Appointment: 01/04/[address] guido Rodrigez [id number] [facility] [address] [facility]01-15-2025 History of Present illness Narrative* Aftab Dey DO - 11/29/2024 2:00 PM EST Images from the original note were not included. Cassi Rodrigez 1950 Cassi Rodrigez is a 74 y.o. female presents with chief complaint of Large abdominal hematoma HPI: HPI Cassi states she had a lumbar laminectomy on 12/19/24. A week later she noticed that her [...] DAY DIRECTED ergocalciferol (Vitamin D2) 1.25 MG (35945 UT) capsule TAKE 1 CAPSULE BY MOUTH [...] ROTATOR CUFF REPAIR Left 2021 LT RCR-DR NOYS WHIPPLE PROCEDURE W/ LAPAROSCOPY 2010 FOR PACREATIC [...] I'll see her PRN documented in this encounterCarondelet [id number] Radiology Diagnostic study [facility]MAR[facility] Main [place] [address] [place] [address] CT Scan Report Signed Patient: Cassi Rodrigez MR#: [id number] : 1950 Acct:[id number] Age/Sex: 74 / F ADM Date: 5 Loc: ER Room: Type: [facility] ER Attending Dr: Copies to: Kristel [...] Arnel Simon M.D.11/24/2024 3:48 PM Dictation Location: [address] [place] [address] Transcribed By: [facility] 11/24/24 154 Dictated By: Arnel Simon II, MD 11/24/24 1538 Signed By: 11/24/24 1548 [facility] Work Phone: 1(306) 599-791201-10-2025 Evaluation note* Diagnosis Onset Date Resolution Status [...] of DVT (deep vein thrombosis)acuteApril 2024 1:49pm [facility] Work Phone: 1(166) 388-935201-10-2025 Evaluation note* Diagnosis Onset Date Resolution Status [...] abdominal wallacuteJanuary 2024 9:51amBilateral lower extremity edemaacute [place] 2024 1:49pmHistory of DVT (deep vein thrombosis)acuteApril 2024 1:49pmAnemia of renal diseaseacuteApril 2024 10:30amBilateral lower extremity edemaacuteApril 2024 10:30amCKD (chronic kidney disease) stage 4, GFR 15-29 ml/minacuteApril 2024 10:30amHypertensive chronic kidney disease with stage 1 through stage 4 chronic kiacuteApril 2024 10:30am Secondary hyperparathyroidismacuteApril 2024 10:30am [facility] Work Phone: 1(320) 443-405012-30-2024 NoteProgress Note-Physician Patient: CASSI RODRIGEZ Age: 74 [...] to Ambulatory Surgery Unit, and To home ).[facility] HospitalComment on above:Result Comment: Electronically Signed By: Sunny Ramirez Jr., DO\Date and Time Signed: 11/13/24 07:01 [id number] NoteDischarge Summary Patient: CASSI RODRIGEZ Age: 74 [...] history of other venous thrombosis and embolism skilled nursing (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 of anticoagulants Epilepsy, unspecified, not [...] bpm (NOV 03) SBP 113 mmHg (NOV 03) DBP 68 mmHg (NOV 03)[facility] HospitalComment on above:Result Comment: Electronically Signed By: Ap PAUL, Shashi Rae.br\Date and Time Signed: 11/03/24 18:13 [id number] Hospital Discharge instructions Patient Education 11/03/2024 14:55:59 [...] sitting in a recliner chair. Only take doih-ibb-wgnsrum or prescription medicines for pain, discomfort, or [...] 10/05/2005 Document Revised: 01/23/2013 Document Reviewed: 11/01/2006 [facility] Patient Information 2013 [facility] [employer]. Follow Up Care 10/19/2024 10:52:05 With:BRODERICK HOWARD Address: [address] [place] [address]- Business (1) When: Unknown Comments:No need to see PCP at this time unless symptoms worsen. With:Shashi De Souza Address: [address] [facility] [address] [facility], [address] [place] [address]- [phone] Business (1) When: Unknown Comments:f/u3wks ok shower and remove dressing dpaeh70hfo no lift>5lbs keep incis dry clean. restart coumadin 3 days after surgery. 11-05-24Wednesday. [facility] 12-20-2024 NotePatient Education - Text Lumbar Laminectomy [...] in a recliner chair. ? Only take pdaf-bhf-pgohqig or prescription medicines for pain, discomfort, or [...] Document Reviewed: 11/01/2006 ExitCare? Patient Information ?2012 [employer] [facility] 11-03-2024 Evaluation + Plan noteExtracted from:Title:Discharge SummaryAuthor: Shashi De Souza MD BDate:11/03/24 Discharge Information Discharge Summary Information: Admit Date/Time: 11/02/24 10:13Discharge Date/Time: 11/03/24 18:13 Admitting Physician: Shashi De Souza MD Referring Physician for Admission: Shashi De Souza MD Consulting Physicians: Dar NUNEZ MD Admitting Diagnoses: Discharge Diagnoses: Essential (primary) hypertension Presence of cardiac pacemaker Personal history of other venous thrombosis and embolism 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 Anticoagulated (Z79.01: skilled nursing (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 of anticoagulants) Warfarin prior to [...] hold for neuro spine surgery, patient has nuhbo-fkt-viup compression hose and SCDs Enoxaparin 40 mg daily per surgeon for now 5. 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 Anesthetic Preoperative Plan: Anesthesia General. Diagnostic Tests Pending * Calcium Level Ionized 11/03/24 [facility] 12-20-2024 NoteProgress Note-Physician Basic Information 74-year-old female [...] hold for neuro spine surgery, patient has abrzc-rgx-dmuw compression hose and SCDs Enoxaparin 40 mg daily per surgeon for now 5. 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 Pt. with on AM-PAC this date. She is safe and independent with all functional activities at this time. No further PT needs.[facility]12-19-2024 NoteConsultation Note Reason for Consultation Medical [...] hold for neuro spine surgery, patient has kboyv-aqv-ukrj compression hose and SCDs Enoxaparin 40 mg daily per surgeon for now 5. Anticoagulated (Z79.01: skilled nursing (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 of anticoagulants) Warfarin prior to [...] tab(s), Oral, Daily carvedil (more content not included)...[facility] HospitalComment on above:Result Comment: Electronically Signed By: Katarzyna Frost CNP\.br\Date and Time Signed: 11/02/24 18:33 EST\.br\Electronically Co-Signed By: Dar NUNEZ MD\.br\Date and Time Co-Signed: 11/02/24 18:54 [id number] NoteProgress Note-Nurse 1615- Pacemaker to right chest interrogated in PACU at this time with [employer]tr[employer] device. Device stated it transmitted properly.[facility] 11-02-2024 NoteProgress Note-Physician Patient: CASSI RODRIGEZ [...] All Problems Acute asthma / SNOMED CT 6925786540 / Confirmed Bradycardia / SNOMED CT 24851584 / Confirmed Cardiac pacemaker / SNOMED CT 5664046636 / Confirmed Epilepsy / SNOMED CT 680021222 / Confirmed High blood pressure / SNOMED CT 0353121997 / Confirmed History of DVT of lower extremity / SNOMED CT 2729371186 / Confirmed Migraines / SNOMED CT 42652478 / Confirmed Obstructive sleep apnea / SNOMED CT 710463968 / Confirmed Pancreatic cancer / SNOMED CT 464457711 / Confirmed Presence of IVC filter / SNOMED CT 1795871905 / Confirmed, Active Problems (10) Acute asthma Bradycardia Cardiac pacemaker Epilepsy High blood pressure History of DVT of lower extremity Migraines Obstructive sleep apnea Pancreatic cancer Presence of IVC filter , anesthesia summary- obesity, HTN, godfrey/PM, SHELL, mild asthma, remote treatment for pancreatic cancer, controlled siezures, RI, controlld GERD, hx DVT s/p IVCF on chronic anticoagulation, c-spine dz Histori (more content not included)...[facility] HospitalComment on above:Result Comment: Electronically Signed By: Thomas PAUL, Jaun Ortiz.br\Date and Time Signed: 11/02/24 13:45 [id number] Evaluation note* Diagnosis Onset Date Resolution Status Admit Date Chronic kidney disease acuteDe[facility] [place] 2023 8:49amGastroesophageal reflux disease with esophagitis without hemorrhageacuteDeceer 2023 8:49amHistory of DVT (deep vein thrombosis)acuteDecevalleywise [facility] [place] 2023 8:49amHypertensionacuteDeceer 2023 8:49amLumbar stenosis with neurogenic claudicationacuteDecevalleywise [facility] [place] 2023 8:49amMajor depressionacuteDeceer 2023 8:49amPreop exam for internal medicinenoneactiveOctober 27, 2024 8:49amAdverse effect of anticoagulant antagonists, vitamin k [...] and other coagulantsacuteJanuary 2024 9:51amCellulitisacuteJanuary 2024 9:51am [facility] Work Phone: [phone]) [phone] NoteHNO ID: [id number] Author: RANDA REILLY MD Service: ? Author [...] Injection Sites Muscle Fixed Site/Fixed Dose Bilat Yardage Control Operator Forming 20 U divided in 2 sites Procerus [...] Total Units wasted: 0 Randa Reilly MD [facility]10-22-2024 Procedure note* Randa Reilly MD - [...] procedure note Treatment # 2 Consent in [facility] Dilution: 5 units/0.1 ml ( 100 unit vial with 2 cc diluent or 200 unit vial with 4 cc diluent) Diluent: normal saline Indication: Chronic Intractable Migraine Right temporal metal plate with skin irregularity, no shunt Injection Sites Muscle Fixed Site/Fixed Dose Bilat Yardage Control Operator Forming 20 U divided in 2 sites Procerus [...] Total Units wasted: 0 Randa Reilly MD [facility]10-22-2024 Procedure note* Randa Reilly MD - 09/05/2024 [...] Injection Sites Muscle Fixed Site/Fixed Dose Bilat Yardage Control Operator Forming 20 U divided in 2 sites Procerus [...] Total Units wasted: 0 Randa Reilly MD [facility] documented in this encounterSumma Health10-22-2024 NoteHNO ID: [id number] Author: RANDA REILLY MD Service: ? Author Type: Physician Type: Progress Notes Filed: 09/05/2024 13:54 Note Text: PROGRESS NOTE- HEADACHE MEDICINE SERVICE DATE: September 05, 2024 Location: [facility] Participants: patient, and provider [...] 3.Referral to sleep medicine Randa Reilly MD [facility]10-22-2024 History of Present illness Narrative* Randa Reilly MD - 09/05/2024 1:49 PM EDT PROGRESS NOTE- HEADACHE MEDICINE SERVICE DATE: September 05, 2024 Location: [facility] Participants: patient, and provider [...] sleep medicine Randa Reilly MD [facility] documented in this encounterSumma Health10-22-2024 Nurse Note* Davina Brennan RN - 09/05/2024 [...] Jewell RN Botox, 2 vials: Lot # [id number] Exp 10/2026 Lot # [id number] Exp 10/[address] Reilly to administer and verified order. [facility]10-22-2024 Nurse Note* Davina Brennan RN - 09/05/2024 [...] Jewell RN Botox, 2 vials: Lot # [id number] Exp 10/2026 Lot # [id number] Exp 10/[address] Reilly to administer and verified order. documented in this encounterSumma Health10-17-2024 NoteHNO ID: [id number] Author: KITTY VALENTE MD Service: ? Author Type: Physician Type: Progress Notes Filed: 09/02/2024 00:42 Note Text: [facility] Department of Cardiovascular Medicine SECTION OF CARDIAC PACING and ELECTROPHYSIOLOGY OUTPATIENT VISIT DATE NASRIN July 23, 2022 August 31, 2024 OUTPATIENT VISIT TYPE ESTABLISHED PRIMARY CARE PHYSICIAN: Broderick Howard MD ([facility]) [address] [place] [address] CHIEF COMPLAINT: Pacemaker management HISTORY OF PRESENT [...] antiepileptic Rx - well (more content not included)...[facility] 08-31-2024 History of Present illness Narrative* Kitty Valente MD - 08/31/2024 10:04 AM EDT Images from the original note were not included. [facility] Department of Cardiovascular Medicine SECTION OF CARDIAC PACING and ELECTROPHYSIOLOGY OUTPATIENT VISIT DATE NASRIN July 23, 2022 August 31, 2024 OUTPATIENT VISIT TYPE ESTABLISHED PRIMARY CARE PHYSICIAN: Broderick Howard MD ([facility]) [address] [place] [address] CHIEF COMPLAINT: Pacemaker management HISTORY OF PRESENT [...] of Cardiovascular Medicine [facility] Office Office Pager [phone] August 31, 2024 10:18 AM documented in this encounterSumma Health10-16-2024 Evaluation note* Diagnosis Onset Date Resolution Status Admit Date History of DVT (deep vein thrombosis) acuteOctober 2023 3:20pmHypertensionacuteOctober 2023 3:20pmSwelling of right lower extremityacuteOctober 2023 3:20pmAnemia of renal disease acuteOctober 2023 9:09amCKD (chronic kidney disease) stage 4, GFR 15-29 ml/minacuteOctober 2023 9:09amHypertensive chronic kidney disease with stage 1 through stage 4 chronic kiacuteOctober 2023 9:09amSecondary hyperparathyroidismacuteOctober 2023 9:09amChronic kidney diseaseacute October 27, 2024 8:49amGastroesophageal reflux disease with esophagitis without hemorrhageacuteDeceer 2023 8:49amHistory of DVT (deep vein thrombosis)acuteDece2023 8:49amHypertensionacuteDecember 2023 8:49amLumbar stenosis with neurogenic claudicationacuteDeceer 2023 8:49amMajor depressionacutemclaren bay special care hospitaler 2023 8:49amPreop exam for internal medicinenoneactiveDeceer 2023 8:49amAdverse effect of anticoagulant antagonists, vitamin k and other coagulantsacuteJanuary 2024 1:36pmBruising at injection siteacuteJanuary 2024 1:36pmCellulitisacuteJanuary 2024 1:36pmAbscess of abdominal wallacuteJanuary 2024 10:35amAdverse effect of anticoagulant antagonists, vitamin k and other coagulantsacuteJanuary 2024 10:35amCellulitisacuteJanuary 2024 10:35amAbdominal hematomaacuteJanuary 2024 10:54amAdverse effect of anticoagulant antagonists, vitamin k and other coagulantsacuteJanuary 2024 10:54amCellulitisacuteJanuary 2024 10:54am [facility] Work Phone: 1(498) 403-447210-15-2024 Evaluation note* Diagnosis Onset Date Resolution Status [...] 8:49amLumbar stenosis with neurogenic claudicationacuteDecember 2023 8:49amMajor depressionacuteDecember 2023 8:49amPreop exam for internal medicinenoneactiveDecember 2023 8:49am [facility] Work Phone: 1(469) 955-714710-15-2024 Evaluation note* Diagnosis Onset Date Resolution Status [...] and other coagulantsacuteJanuary 2024 10:35amCellulitisacuteJanuary 2024 10:35am [facility] Work Phone: 1(989) 235-374508-15-2024 History of Present illness Narrative* Alejandro Villar MD, PhD - 06/29/2024 2:41 PM EDT [facility] Patient Name: Cassi Rodrigez Date of : 1950 ESTABLISHED EPILEPSY CLINIC NOTE 06/29/2024 1:00 PM Reason for Visit: Epilepsy Clinical Summary: Ms. Rodrigez is a 74 year old female seen in [facility]. Classification Summary HISTORY OF PRESENT [...] and s/p lumbar laminectomy in 07/2023. 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 [facility] in [facility], ZNS was increased to [...] which included: preparing to see the patient jcll-kr-ahvi patient care completing clinical documentation obtaining and/or reviewing separately obtained history performing a medically appropriate examination Alejandro Villar MD, PhD cc: Primary Care Physician: Broderick Howard, [address] [address] Referring: Patient: Ms. Cassi Rodrigez [address] [place] [id number] documented in this encounterSumma Health07-09-2024 Nurse Note* Tomasa Farfan RN - 05/23/2024 [...] Lon VARELA Botox, 2 vials: Lot # [id number] Exp Lot # [id number] Botox handed to Dr. Reilly to administer and verified order. [facility]07-09-2024 Nurse Note* Tomasa Farfan RN - 05/23/2024 [...] Lon VARELA Botox, 2 vials: Lot # [id number] Exp Lot # [id number] Botox handed to Dr. Reilly to administer and verified order. 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 Forming 20 U divided in 2 sites Procerus [...] wasted: 0 Randa Reilly MD [facility]07-09-2024 Procedure note* Randa Reilly MD - 05/23/2024 [...] Injection Sites Muscle Fixed Site/Fixed Dose Bilat Yardage Control Operator Forming 20 U divided in 2 sites Procerus [...] Total Units wasted: 0 Randa Reilly MD [facility] documented in this encounterSumma Health05-01-2024 NoteDUAL CHAMBER PACEMAKER REMOTE EVALUATION: PRESENTING EGM: [...] under CARDIAC DATA AND REPORT, Scanned Documents section.[id number] History of Present illness Narrative* Randa Reilly MD - 03/07/2024 9:30 AM EDT PROGRESS NOTE- HEADACHE MEDICINE SERVICE DATE: March 07, 2024 Location: [facility] Participants: patient, and provider [...] I spent at least 50% of the ffrw-dg-tfyh time in counseling, explanation of diagnosis, planning of further management, and answering all questions. Randa Reilly MD [facility] documented in this encounterSumma Health02-08-2024 Instructions* Patient Instructions* Lauren Otero APRN.CNP - 12/23/2023 9:42 AM EST To schedule with headache clinic (can schedule at [facility]): [phone] documented in this encounterSumma Health02-08-2024 History of Present illness Narrative* Alejandro Villar MD, PhD - 12/23/2023 9:00 AM EST [facility] CHIEF COMPLAINT: Patient presents [...] She was referred to the headacheclinic at [facility] in the past but at [...] know if she decides to pursue at [facility] - she needs for spine doctor, plans to talk to PCP first but will let us know if she needs referralto someone here at [facility] - ENT referral as needed for [...] MD, PhD in collaboration with Lauren Otero APRN.COSTUMED CHARACTER December 23, 2023 documented in this encounterSumma Health01-10-2024 Evaluation note* Encounter Date Diagnosis Assessment Notes Treatment Notes Treatment Clinical Notes Nov, Acute non-recurrent maxillary si nusitis (ICD-10 - J01.00) Instructed to use Robitussin or Mucinex for cough, saline or Flonase NS for congestion, Tylenol forpain and fever. Nov,rimary hypertension (ICD-10 - I10)Increased risk for more serious, prolonged illness. [employer] Other [id number] Miscellaneous Notes* Telephone Encounter - Mirian Bell APRN.CNP - 09/13/2023 1:53 PM EDT Thank you reviewed scan documents. Mirian Bell APRN.CNP * Telephone Encounter - Brenda Hodges RN - 09/13/2023 7:58 AM EDT [facility] and scanned into chart for review. documented in this encounterSumma Health10-30-2023 Miscellaneous Notes* Telephone Encounter - Daniel Macias [...] Please E-Scribe Caller Contact Number: Pharmacy Name: [facility] Pharmacy Number: [phone] Generic/ brand: 30 or 90 day supply requested: 90 Last appointment: 09/10/22 Next Appointment: 12/09/[address] Villar documented in this [facility]10-25-2023 Instructions* Patient Instructions* Mirian Bell APRN.CNP - 09/08/2023 3:21 PM EDT Please schedule for device check & in one year Please have patient sign release of medical labs from [facility] had labs last month documented in this encounterSumma Health10-25-2023 History of Present illness Narrative* Mirian Bell APRN.NIC - 09/08/2023 2:30 PM EDT Images from the original note were not included. 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 Moderate functional capacity (active with ADL, [...] 09-08-2023 Dual chambered pacer EVALUATION PRESENTS FOR: COSTUMED CHARACTER visit PRESENTING EGM: AP/VS UNDERLYING RHYTHM: BATTERY [...] with more than 50% of the total bmjy-tr-hgah time of the visit in counseling / coordination of care. CONTACT INFORMATION: Mirian Bell APRN.CNP, 09/08/23 [facility] Cardiology Second Floor [address] [facility] [place] [id number] documented in this encounterSumma Health10-11-2023 Evaluation note* Encounter Date Diagnosis Assessment Notes Treatment Notes Treatment Clinical Notes Aug, Lumbar stenosis with neurogenic claudication (ICD-10 - M48.062) [employer] Other 10-02-2023 Evaluation note* Encounter Date Diagnosis Assessment Notes Treatment Notes Treatment Clinical Notes Aug, Lumbar stenosis with neurogenic claudication (ICD-10 - M48.062) [employer] Other 09-28-2023 Evaluation note* Encounter Date Diagnosis Assessment Notes Treatment Notes Treatment Clinical Notes Jul, Lumbar stenosis with neurogenic claudication (ICD-10 - M48.062) [employer] Other 09-20-2023 Progress note Author Niki Weeks [facility] August 04, 2023 7:57amNote Date/TimeSept2022 7:[place] [address] Neurosurgery Progress Note Signed Patient: Cassi Rodrigez MR#: [id number] : 1950 Acct:[id number] Age/Sex: 73 / F Adm Date: 3 Loc: 4N Room: [address] [place] [address] Type: REG SDC Attending Dr: Niki Weeks [...] Neut % (Auto) 91.6, Lymph % (Auto)4.4, Emmons % (Auto) 4.0, Eos % (Auto) 0.0, Baso % (Auto) 0.0, Nucleat RBC Rel Count 0.1, Neut # (Auto) 10.4 H, Lymph #(Auto) 0.5 L, Emmons # (Auto) 0.5, Eos # (Auto) 0.0, [...] signed by Niki Weeks MD> 08/04/23 0757 [facility] Work Phone: [phone]) 246-819008-23-2023 Evaluation note* Encounter Date Diagnosis Assessment Notes Treatment Notes Treatment Clinical Notes Jun, Lumbar stenosis with neurogenic claudication (ICD-10 - M48.062) [employer] Other 06-22-2023 Evaluation note* Encounter Date Diagnosis [...] will continue with this therapy without change. [employer] Other 06-19-2023 Evaluation note* Encounter Date Diagnosis Assessment Notes Treatment Notes Treatment Clinical Notes Apr, Lumbosacral spondylosis with rad iculopathy (ICD-10 - M47.27) [employer] Other 06-19-2023 Evaluation note* Encounter Date Diagnosis [...] until MRI completed MRI being rescheduled for [facility] due to PM Apr,Stage 3b chronic kidney disease (ICD-10 - N18.32)The patient is instructed on adequate control of hypertension and diabetes, if appropriate. They are also educated on the associated risks of NSAIDs and PPI use with kidney disease. They were instructed on adequate fluid balance and to avoid dehydration. Apr,History of lumbar fusion (ICD-10 - Z98.1) [employer] Other 05-15-2023 Evaluation note* Encounter Date Diagnosis Assessment Notes Treatment Notes Treatment Clinical Notes March, Lumbosacral spondylosis with rad iculopathy (ICD-10 - M47.27) [employer] Other 05-11-2023 Evaluation note* Encounter Date Diagnosis [...] PT March,OtherStable w/o breakthrough Sz. Secondary to [employer]SMIT[employer] surgery Continue surveillance w/ [employer] Other 2023 Evaluation note* Encounter Date Diagnosis Assessment Notes Treatment Notes Treatment Clinical Notes Jan, Nausea (ICD-10 - R11.0) [employer] Other 02-23-2023 Evaluation note* Encounter Date Diagnosis Assessment Notes Treatment Notes Treatment Clinical Notes Dec, Nausea (ICD-10 - R11.0) Increase Amitriptyline to 15mg at bedtime Dec,onstipation (ICD-10 - K59.00)Start Linzess 72mcg daily Pt to call if symptoms worsen or return Follow up in 4 months [employer] Other 01-11-2023 Evaluation note* Encounter Date Diagnosis [...] to trial Amitiza and discuss w/ GI [employer] Other 10-27-2022 History of Present illness Narrative* Lauren Otero APRN.NIC - 09/10/2022 1:53 PM EDT [facility] CHIEF COMPLAINT: Patient presents [...] She was [facility] to [facility] at [facility] in the past but at [...] Dr. Alejandro Villar. [facility] History of Present illness Narrative* Kitty Millard MD - 07/23/2022 10:00 AM EDT Images from the original note were not included. [facility] Department of Cardiovascular Medicine SECTION OF CARDIAC PACING and ELECTROPHYSIOLOGY OUTPATIENT VISIT DATE July 23, 2022 OUTPATIENT VISIT TYPE ESTABLISHED PRIMARY CARE PHYSICIAN: Broderick Howard MD ([facility]) [address] [place] [address] CHIEF COMPLAINT: Pacemaker management HISTORY OF PRESENT [...] Lymph 1.00 - 4.00 k/uL 0.93 (L) Emmons% % 7.7 Abs Emmons <0.87 k/uL 0.32 Eosin% % 5.3 Abs [...] Millard MD Electrophysiology documented in this encounterSum[facility] Health02-22-2022 Evaluation note* Encounter Date Diagnosis Assessment Notes Treatment Notes Treatment Clinical Notes Dec, Nausea (ICD-10 - R11.0) PATIENT STATES THAT THIS HAS IMPROVED. PATIENT TO CONTINUE ON THE AMITRIPTYLINE DOSE AT THIS TIME. [employer] Other 03-12-2015 History of Past illness Narrative* Problem Noted DateResolved FtywEmavghp90documented as of this encounter (statuses as of 07/23/2022) [address]12-2015 History of Past illness Narrative* ProblemNoted Date Resolved QkvtAjwqvey06/documented as of this encounter (statuses as of 08/26/2022) [address]12-2015 History of Past illness Narrative* ProblemNoted Date Resolved XtwgVmmedrl42/documented as of this encounter (statuses as of 09/10/2022) [address]12-2015 History of Past illness Narrative* ProblemNoted Date Resolved JrhlPzasuqw97documented as of this encounter (statuses as of 11/26/2022) [address]12-2015 History of Past illness Narrative* ProblemNoted Date Resolved WkvrVnqoihs84documented as of this encounter (statuses as of 02/25/2023) [address]12-2015 History of Past illness Narrative* ProblemNoted Date Diagnosed DateResolved YzshUgkqmkl91documented as of this encounter (statuses as of 06/17/2023) [address]2015 History of Past illness Narrative* ProblemNoted Date Diagnosed DateResolved PzqyUswrnve63documented as of this encounter (statuses as of 09/08/2023) [address]2015 History of Past illness Narrative* ProblemNoted Date Diagnosed DateResolved GfqtCzjkges75documented as of this encounter (statuses as of 09/09/2023) [address]2015 History of Past illness Narrative* ProblemNoted Date Diagnosed DateResolved VsydSvftiqr09documented as of this encounter (statuses as of 09/14/2023) [address]2015 History of Past illness Narrative* ProblemNoted Date Diagnosed DateResolved RtfdTtwlpcv56/documented as of this encounter (statuses as of 09/14/2023) [address] History of Past illness Narrative* ProblemNoted Date Diagnosed DateResolved BjisCrzncon13/12/331212/07/2018documented as of this encounter (statuses as of 12/23/2023) [facility] Author Niki Weeks [facility] August 05, 2023 8:09amNote Date/TimeSeptember 2022 8:09[place] [address] Discharge Summary Signed Patient: Cassi Rodrigez MR#: [id number] : 1950 Acct:[id number] Age/Sex: 73 / F Adm Date: 3 Loc: Room: [address] [place] [address]: Niki Weeks MD Copies to: [...] Neut % (Auto) 77.1, Lymph % (Auto)11.8, Emmons % (Auto) 9.2, Eos % (Auto) 1.7, Baso % (Auto) 0.2, Nucleat RBC Rel Count 0.4, Neut # (Auto) 5.6, Lymph # (Auto) 0.9 L, Emmons # (Auto) 0.7, Eos # (Auto) 0.1, [...] Niki Weeks MD> 08/05/23 0809 [facility] Work Phone: Evaluation + Plan note Future Appointments Appointment Date:10/25/2024 10:30:00 AM Scheduled Provider: Location:[facility] Appointment Type:Surgical PAT FT Appointment Date:11/02/2024 12:30:00 PM Scheduled Provider: Location:[facility] Appointment Type:Surgery FT [facility] Evaluation note* Diagnosis Chronic fatigue- Primary Other malaise and fatigue [facility] Diagnosis Partial epilepsy with impairment of consciousness, intractable (HCC) Localization-related (focal) (partial) epilepsy and epileptic syndromes with complex partial seizures, with intractable epilepsy [facility] assessment information [facility] Work Phone: Evaluation noteNo InformationNort [employer] Other evaluation note* Diagnosis Onset Date Resolution Status Lumbar stenosis with neurogenic claudica tion acute [facility] Work Phone: Evaluation note* Diagnosis Sinus node dysfunction (HCC)- Primary Sinoatrial node dysfunction Cardiac pacemaker in situ Bradycardia Other specified cardiac dysrhythmias [facility] Diagnosis Partial epilepsy with impairment of consciousness, intractable (HCC) Localization-related (focal) (partial) epilepsy and epileptic syndromes with complex partial seizures, with intractable epilepsy [facility] Diagnosis Pacemaker [Z95.0]- Primary Cardiac pacemaker in situ [facility] Diagnosis Intractable 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 aura and without status migrainosus- Primary Chronic migraine without aura, with intractable migraine, so stated, without mention of status migrainosus [facility] Diagnosis Intractable 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 aura and without status migrainosus- Primary Chronic migraine without aura, with intractable migraine, so stated, without mention of status migrainosus Cervicalgia SHELL (obstructive sleep apnea) Obstructive sleep apnea (adult) (pediatric) documented [facility]* Diagnosis Onset Date Resolution Status Hypertension acuteLumbar stenosis with neurogenic claudicationacute [facility] Work Phone: Evaluation note* Diagnosis Onset Date Resolution Status Hypertension acuteLumbar stenosis with neurogenic claudicationacuteAge-related osteoporosis without current pathological fractureacuteChronic kidney diseaseacute HypertensionacuteLumbosacral spondylosis with radiculopathyacuteObstructive sleep apneaacute [facility] Work Phone: Evaluation note* Diagnosis Intractable 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 aura and without status migrainosus- Primary Chronic migraine without aura, with intractable migraine, so stated, without mention of status migrainosus documented [facility] this encounter [facility]* Diagnosis Onset Date Resolution Status Age-related osteoporosis without current pathological fracture acuteChronic kidney diseaseacuteHypertensionacuteLumbosacral spondylosis with radiculopathyacuteObstructive sleep apneaacuteArthropathy of right hipacute Greater trochanteric bursitis of both hipsacuteHistory of lumbar surgeryacute Pain of both sacroiliac jointsacute [facility] Work Phone: Evaluation note* Diagnosis Onset Date Resolution Status Age-related osteoporosis without current pathological fracture acuteChronic kidney diseaseacuteHypertensionacuteLumbosacral spondylosis with radiculopathyacuteObstructive sleep apneaacuteArthropathy of right hipacute Greater trochanteric bursitis of both hipsacuteHistory of lumbar surgeryacute Pain of both sacroiliac jointsacuteAnemia of renal diseaseacuteChronic kidney fluyainnvjtfGRW-RBWH-[id number]mrytab canceracuteSecondary hyperparathyroidismacuteVitamin D deficiencyacute [facility] Work Phone: Evaluation note* Diagnosis Onset Date Resolution Status Age-related osteoporosis without current pathological fracture acuteChronic kidney diseaseacuteHypertensionacuteLumbosacral spondylosis with radiculopathyacuteObstructive sleep apneaacuteArthropathy of right hipacute Greater trochanteric bursitis of both hipsacuteHistory of lumbar surgeryacute Pain of both sacroiliac jointsacuteAnemia of renal diseaseacuteCKD (chronic kidney disease) stage 4, GFR 15-29 ml/[id number] acuteSecondary hyperparathyroidismacuteAge-related osteoporosis without current pathological fractureacuteChronic kidney diseaseacuteGastroesophageal reflux disease with esophagitis without hemorrhageacuteHistory of pancreatic cancer acuteHypertensionacuteLumbar stenosis with neurogenic claudicationacuteMajor depressionacuteMedicare annual wellness visit, subsequentnoneactiveScreening mammogram for breast cancerMer[facility] Work Phone: Evaluation note* Diagnosis Focal epilepsy with impairment of consciousness, intractable (HCC)- Primary Localization-related (focal) (partial) epilepsy and epileptic syndromes with simple partial seizures, with intractable epilepsy Partial epilepsy with impairment of consciousness, intractable (HCC) Localization-related (focal) (partial) epilepsy and epileptic syndromes with complex partial seizures, with intractable epilepsy documented in this encounter [facility]* Diagnosis Onset Date Resolution Status Arthropathy of right hip acuteGreater trochanteric bursitis of both hipsacuteHistory of lumbar surgery acutePain of both sacroiliac jointsacuteAnemia of renal diseaseacuteCKD (chronic kidney disease) stage 4, GFR 15-29 ml/ljzksjrsTQJ-[id number] acuteSecondary hyperparathyroidismacuteAge-related osteoporosis without current pathological fractureacuteChronic kidney diseaseacuteGastroesophageal reflux disease with esophagitis without hemorrhageacuteHistory of pancreatic cancer acuteHypertensionacuteLumbar stenosis with neurogenic claudicationacuteMajor depressionacuteMedicare annual wellness visit, subsequentnoneactiveScreening mammogram for breast cancernon[facility] Work Phone: Evaluation note* Diagnosis Onset Date Resolution Status Anemia of renal disease acuteCKD (chronic kidney disease) stage 4, GFR 15-29 ml/minacute [id number]jxrws hyperparathyroidismacuteAge- related osteoporosis without current pathological fractureacuteChronic kidney diseaseacuteGastroesophageal reflux disease with esophagitis without hemorrhage acuteHistory of pancreatic canceracuteHypertensionacuteLumbar stenosis with neurogenic claudicationacuteMajor depressionacuteMedicare annual wellness visit, subsequentnoneactiveScreening mammogram for breast cancernoneactiveConstipation acuteGERD (gastroesophageal reflux disease)acuteNauseaacutePancreatic cancer [facility] Work Phone: Evaluation note* Diagnosis Sinus node dysfunction (HCC)- Primary Sinoatrial node dysfunction Cardiac pacemaker in situ Bradycardia Other specified cardiac dysrhythmias documented in this encounter [facility]* Diagnosis Intractable 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 aura and without status migrainosus- Primary Chronic migraine without aura, with intractable migraine, so stated, without mention of status migrainosus documented in this encounter [facility]* Diagnosis Onset Date Resolution Status [...] kidney disease) stage 4, GFR 15-29 ml/minacute [id number] hyperparathyroidismacute [facility] Work Phone: Evaluation note* Diagnosis Abdominal wall hematoma, initial encounter- Primary documented in this encounter [facility]* Diagnosis Localization-related (focal) (partial) symptomatic epilepsy and epileptic syndromes with complex partial seizures, intractable, without status epilepticus (HCC) [facility]* Diagnosis Abdominal wall hematoma, subsequent encounter- Primary documented in this encounter [facility]* Diagnosis Localization-related (focal) (partial) symptomatic epilepsy and epileptic syndromes with complex partial seizures, intractable, without status epilepticus (HCC)- Primary Memory loss [facility]* Diagnosis Intractable 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 aura and without status migrainosus- Primary Chronic migraine without aura, with intractable migraine, so stated, without mention of status migrainosus [facility]* Diagnosis MCI (mild cognitive impairment)- Primary Mild cognitive impairment, so stated [facility]* Diagnosis Intractable 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 aura and without status migrainosus- Primary Chronic migraine without aura, with intractable migraine, so stated, without mention of status migrainosus [facility]* Diagnosis Chronic pain syndrome- Primary MCI (mild cognitive impairment) Mild cognitive impairment, so stated Sinus node dysfunction (HCC) Sinoatrial node dysfunction Obesity, Class II, BMI 35-39.9 Obesity, unspecified documented in this encounter [facility]* Diagnosis Onset Date Resolution Status Admit Date Age-related osteoporosis without current pathological fracture acuteAugust 2024 2:50pmChronic kidney diseaseacuteAugust 2024 2:50pm Gastroesophageal reflux disease with esophagitis without hemorrhageacuteAugust 2024 2:50pmHistory of pancreatic canceracuteAugust 2024 2:50pm HypertensionacuteAugust 2024 2:50pmLumbar stenosis with neurogenic claudicationacuteAugust 2024 2:50pmMajor depressionacuteAugust 2024 2:50pmMedicare annual wellness visit, subsequentnoneactiveAugust 2024 2:50pmScreening mammogram for breast cancernoneactiveAugust 2024 2:50pm [facility] Work Phone: Evaluation note* Diagnosis Intractable 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 aura and without status migrainosus- Primary Chronic migraine without aura, with intractable migraine, so stated, without mention of status migrainosus documented in this encounter [facility] general Narrative - Reported* Type Description Date Surgical History back surgery-2 Surgical Historycervical fusionSurgical HistorycholecystectomySurgical History whipple [id number] HistoryappendectomySurgical Historyhammer toe Surgical Historyrotator cuff-leftSurgical Historytemporal lumpectomy Hospitalization Historysee surgical [employer] Other History general Narrative - Reported* Type [...] shoulder Medical HistoryEssential hypertensionMedical HistoryCurrent use of fci anticoagulationMedical HistoryHistory of pancreatic cancerMedical HistoryHistory of deep vein thrombosisMedical HistoryCervical spondylosisMedical HistoryChest tightnessMedical HistoryGastroesophageal reflux disease with esophagitis without hemorrhageSurgical Historyback surgery-2Surgical Historycervical fusionSurgical HistorycholecystectomySurgical Historywhipple [id number] History appendectomySurgical Historyhammer toeSurgical Historyrotator cuff-leftSurgical Historytemporal lumpectomyHospitalization Historysee surgical hx [employer] Other History general Narrative - Reported* Type [...] shoulder Medical HistoryEssential hypertensionMedical HistoryCurrent use of superintendent marine oil terminal anticoagulationMedical HistoryHistory of pancreatic cancerMedical HistoryHistory of deep vein thrombosisMedical HistoryCervical spondylosisMedical HistoryChest tightnessMedical HistoryGastroesophageal reflux disease with esophagitis without hemorrhageMedical HistoryappendectomyMedical HistoryArthritisMedical History AsthmaMedical Historycancer-PancreaticMedical HistorycataractsMedical History epilepsyMedical Historygall bladder diseaseMedical Historyheart diseaseMedical Historyhigh blood pressureMedical Historykidney diseaseMedical Historymigraine headachesMedical HistoryosteoporosisMedical HistorypacemakerMedical History chronic depressionMedical HistoryDVTSurgical Historyback surgery-2Surgical Historycervical fusion l0Opkepxnc HistorycholecystectomySurgical Historywhipple [id number] HistoryappendectomySurgical Historyhammer toeSurgical Historyrotator cuff-leftSurgical Historytemporal lumpectomySurgical History StentsSurgical Historycardiac pacemekerSurgical HistoryPort removal Hospitalization Historysee surgical hx [employer] Other History general Narrative - Reported* Type [...] shoulder Medical HistoryEssential hypertensionMedical HistoryCurrent use of fci anticoagulationMedical HistoryHistory of pancreatic cancerMedical HistoryHistory of deep vein thrombosisMedical HistoryCervical spondylosisMedical HistoryChest tightnessMedical HistoryGastroesophageal reflux disease with esophagitis without hemorrhageMedical HistoryappendectomyMedical HistoryArthritisMedical History AsthmaMedical Historycancer-PancreaticMedical HistorycataractsMedical History epilepsyMedical Historygall bladder diseaseMedical Historyheart diseaseMedical Historyhigh blood pressureMedical Historykidney diseaseMedical Historymigraine headachesMedical HistoryosteoporosisMedical HistorypacemakerMedical History chronic depressionMedical HistoryDVTSurgical Historyback surgery-2Surgical Historycervical fusion [id number] HistorycholecystectomySurgical Historywhipple [id number] HistoryappendectomySurgical Historyhammer toeSurgical Historyrotator cuff-leftSurgical Historytemporal lumpectomySurgical History StentsSurgical Historycardiac pacemekerSurgical HistoryPort removalSurgical HistoryLumbar decompressive laminectomy L4-59/2022Hospitalization Historysee surgical hx [employer] Other Hospital course Narrative No data available for this section [facility] Hospital Discharge instructions Additional Instructions Eat a well balanced dietPar[facility] Work Phone: Hospital Discharge instructionsAmbulatory Orders* Referral to Orthopedic Surgery Location: None [facility] Work Phone: Hospital Discharge instructions No data available for this section [facility] Hospital Discharge instructions Additional Instructions As discussed you should hold your Coumadin for 5 days Wear abdominal binder as discussed Call Dr. Howard your primary care doctor on Wednesday let him know that you should be evaluated Please return here if you develop any dizziness, chest pain, shortness of breath, fevers, chills increased abdominal swelling, lightheadedness or any other concernsPar[facility] Work Phone: Progress note Author Niki Weeks [facility] August 05, 2023 8:00amNote Date/TimeSept2022 8:00[place] [address] Neurosurgery Progress Note Signed Patient: Cassi Rodrigez MR#: [id number] : 1950 Acct:[id number] Age/Sex: 73 / F Adm Date: 3 Loc: 4N Room: 8T3021-8 Type: REG SDC Attending Dr: Niki Weeks [...] Neut % (Auto) 77.1, Lymph % (Auto)11.8, Emmons % (Auto) 9.2, Eos % (Auto) 1.7, Baso % (Auto) 0.2, Nucleat RBC Rel Count 0.4, Neut # (Auto) 5.6, Lymph # (Auto) 0.9 L, Emmons # (Auto) 0.7, Eos # (Auto) 0.1, [...] signed by Niki Weeks MD> 08/05/23 0800 [facility] Work Phone: Progress note No data available for this section [facility] Reason for referral (narrative)* Outpatient Procedure (Routine) - ClosedSpecialtyDiagnoses / ProceduresReferred By ContactReferred To ContactHE[facility] Diagnoses Chronic fatigue Procedures ECG COMPLETE ECG ROUTINE ECG W/LEAST 12 LDS W/I&[place] [address] [place] [address] [facility] [address] [place] [id number] Referral IDStatusReasonStmax DateExpiration DateVisits RequestedVisits [id number] Auto-Generated Referral [facility] for referral (narrative)* Outpatient Procedure (Routine) - Pending ReviewSpecialtyDiagnoses / ProceduresReferred By ContactReferred To [facility] Diagnoses Sinus node dysfunction (HCC) Cardiac pacemaker in situ Bradycardia Procedures ECG COMPLETE ECG ROUTINE ECG W/LEAST 12 LDS W/I&R Mirian Bell APRN.CNP [address] [place] [address] [place] [id number] Referral IDStatusReasonStmax DateExpiration DateVisits RequestedVisits [id number] Auto-Generated Referral / [facility] for referral (narrative)* Outpatient Procedure (Routine) - Pending ReviewSpecialtyDiagnoses / ProceduresReferred By ContactReferred To [facility] Diagnoses Sinus node dysfunction (HCC) Procedures ECHO ECHO TTHRC R-T 2D W/WOM-MODE COMPL SPEC&[place] [address] [place] [address] [place] [id number] Referral IDStatusasonVarney DateExpiration DateVisits RequestedVisits [id number] Review Auto-Generated Referral * Outpatient Procedure (Routine) - New RequestSpecialtyDiagnoses / Procedures Referred By ContactReferred [facility] Diagnoses Sinus node dysfunction (HCC) Procedures ECG COMPLETE ECG ROUTINE ECG W/LEAST 12 LDS W/I&[place] [address] [place] [address] [facility] [address] [place] [address] Ref[facility]Status[facility] DateExpiration DateVisits RequestedVisits [id number] Request Auto-Generated Referral / [facility] HealthReason for referral (narrative)No reason for referral information availableCoshocton [facility] Work Phone: Reason for visit Narrative* Injectable (Routine) - AuthorizedSpecialtyDiagnoses / ProceduresReferred By ContactReferred To [facility] NEUROLOGY Diagnoses Chronic migraine without aura, intractable, without status migrainosus Procedures BOTULINUM TOXIN A PER 1 UNIT CHEMODERVATE FACIAL/TRIGEM/CERV MUSC MIGRAINE Randa Reilly MD [address]/[facility] [place] [address] Phone: tel: fax: Neurology [address] [place] [address] Phone: tel: fax: Referral IDStatusasonVarney DateExpiration DateVisits RequestedVisits [id number]/29/202412/ [facility] Summary Purpose Family History Relationship Condition Age [...] neoplasm of breast Unknownfamily memberDeceasedUnknown Advance Directives Advance Directive Response Recorded Date/ [...] Chief Complaint Cough , Drainage For Weeks [phone] BACK ISSUES Chief Complaint BACK ISSUES Amb [...] Anemia of renal disease Chronic kidney disease [id number] Leukopenia Pancreatic cancer Secondary hyperparathyroidism Vitamin D [...] kidney disease) stage 4, GFR 15-29 ml/min [id number] Leukopenia Secondary hyperparathyroidism Age-related osteoporosis without current [...] kidney disease) stage 4, GFR 15-29 ml/min [id number] Leukopenia Secondary hyperparathyroidism Age-related osteoporosis without current [...] kidney disease) stage 4, GFR 15-29 ml/min [id number] Leukopenia Secondary hyperparathyroidism Age-related osteoporosis without current [...] kidney disease) stage 4, GFR 15-29 ml/min [id number] Leukopenia Secondary hyperparathyroidism Age-related osteoporosis without current [...] kidney disease) stage 4, GFR 15-29 ml/min [id number] Leukopenia Secondary hyperparathyroidism Age-related osteoporosis without current [...] kidney disease) stage 4, GFR 15-29 ml/min [id number] Secondary hyperparathyroidism Chief Complaint Admit Date 1 [...] 2024 8:49am Preop exam for internal medicine [facility] r 2023 8:49am Chief Complaint Admit [...] 2024 8:49am Preop exam for internal medicine [facility] r 2023 8:49am Adverse effect of [...] 0:35am stomach pain-sent by November 24 1:33pm [facility] ER f/u November 28, 2024 1 [...] History of D[facility] (deep vein thrombosis) [facility] 8:[facility] Hypertension October 27, 2024 8:49am Lumbar stenosis with neurogenic claudica tion October 27, 2024 8:49am Major depression October 27, 2024 8:49am Preop exam for internal medicine [facility] 2023 8:49am Adverse effect of anticoagul [...] 0:35am stomach pain-sent by November 24 1:33pm [facility] ER f/u November 28, 2024 1 0:54am [...] 2024 8:49am Preop exam for internal medicine [facility] 2023 8:49am Adverse effect of [...] 0:35am stomach pain-sent by November 24 1:33pm [facility] ER f/u November 28, 2024 1 0:54am [...] 0:35am stomach pain-sent by November 24 1:33pm [facility] ER f/u November 28, 2024 1 [...] 2025 2:50pm Screening mammogram for breast cancer [facility] 2024 2:50pm Anemia of renal disease August [...] 9:36am Nausea August 28, 2025 9 :35am Chief Complaint Admit Date Wellness July 02, 2025 2: 50pm Z95.0 July 23, 2025 8:48am M96.1 M48.062 M54.17 August 01 7:15am renal 6 month f/u August 15, 2025 9: 36am 1 year follow up August 28, 2025 9 :35am Flu Shot September 06, 2025 1 0:45am Chief Complaint Admit Date Wellness July 02, 2025 2: 50pm Z95.0 July 23, 2025 8:48am M96.1 M48.062 M54.17 August 01 7:15am renal 6 month f/u August 15, 2025 9: 36am 1 year follow up August 28, 2025 9 :35am Flu Shot September 06, 2025 1 0:45am POSTLAMINECTOMY SYNDROME September 10, 025 8:51am Reason for Referral SpecialtyDiagnoses / ProceduresReferred By ContactReferred To [facility] Diagnoses Cervicalgia Procedures CONSULT TO [facility] OFFICE/OUTPATIENT NEW HIGH MDM 60 [place] [address] [place] [place] [address] Referral IDStatusReasonStart DateExpiration DateVisits RequestedVisits [id number] PCP Requested Referral [id number] / ProceduresReferred By ContactReferred To Contact Diagnoses SHELL (obstructive sleep apnea) Procedures CONSULT TO SLEEP MEDICINE - ADULT OFFICE/OUTPATIENT [facility] 60 [place] [address] [place] [id number] Referral IDStatusReasonart DateExpiration DateVisits RequestedVisits [id number] PCP Requested Referral [id number] / ProceduresReferred By ContactReferred To ContactHEADACHE Diagnoses Intractable 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 aura and without status migrainosus Procedures CONSULT TO HEADACHE CLINIC OFFICE/OUTPATIENT [facility] 60 MINUTES Lauren Otero, AVIATION ELECTRONIC WARFARE OPERATOR.COSTUMED CHARACTER [address] [place] [address] Neur Headache Main [address] [place] [id number] Referral IDStatus[facility] DateExpiration DateVisits RequestedVisits [id number] PCP Requested Referral Additional Source Comments REASON FOR VISIT (unrecogniz ed section and content) ReasonCommentsEstablished PatientBotox treatmentChronic MigraineSpecialty Diagnoses / ProceduresReferred By ContactReferred To ContactADULT NEUROLOGY Diagnoses Chronic migraine without aura, intractable, without status migrainosus Procedures BOTULINUM TOXIN A PER 1 UNIT CHEMODERVATE FACIAL/TRIGEM/CERV MUSC MIGRAINE Randa Reilly MD [facility] [place] [address] Phone: tel: fax: Neurology [address] [place] [address] Phone: tel: fax: Referral IDStatusReasonStart DateExpiration DateVisits RequestedVisits [id number]/29/202412/[id number] Follow UpReasonCommentsEstablished PatientPartial epilepsy with impairment of consciousness, intractable (HCC)ReasonCommentsFollow UpReasonOnset DateComments Refill Zdrloow0809/13/2023ReasonCommentsPatient UpdateReasonCommentsFollow Up Epilepsy. Patient states she has been stable since last visit.ReasonCommentsNew PatientIntractable 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 aura and without status migrainosus SpecialtyDiagnoses / ProceduresReferred By ContactReferred To ContactHEADACHE Diagnoses Intractable 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 aura and without status migrainosus Procedures CONSULT TO HEADACHE CLINIC OFFICE/OUTPATIENT [facility] 60 MINUTES Lauren Otero, CONNIE.COSTUMED CHARACTER [address] [place] [address] Neur Headache Main [address] [place] [address] Referral IDStatusReasonStart DateExpiration DateVisits RequestedVisits [id number] PCP Requested Referral /[id number]t PatientbotoxSpecialtyDiagnoses / ProceduresReferred By ContactReferred To ContactADULT NEUROLOGY Diagnoses Chronic migraine without aura, intractable, without status migrainosus Procedures BOTULINUM TOXIN A PER 1 UNIT CHEMODERVATE FACIAL/TRIGEM/[place] [address] [address] [place] [address] [place] [address] Referral IDStatusReasonStart DateExpiration DateVisits RequestedVisits [id number]/29/20244/[id number]knba CommentsCardiology Follow UpSpecialtyDiagnoses / ProceduresReferred By Contact Referred To ContactADULT NEUROLOGY Diagnoses Chronic migraine without aura, intractable, without status migrainosus Procedures BOTULINUM TOXIN A PER 1 UNIT CHEMODERVATE FACIAL/TRIGEM/CERV MUSC MIGRAINE Randa Reilly MD [address] [place] [address] Neur Adult [address] [place] [address] ReasonCommentsLarge abdominal hematomaReasonCommentsRefill RequestReasonComments PCP requested pt. be seen again for blisters on her abdomenReasonCommentsFollow UpReasonCommentsEstablished PatientbotoxChronic MigraineReasonCommentsNew PatientSpecialtyDiagnoses / ProceduresReferred By ContactReferred To Contact Neurology Diagnoses MCI (mild cognitive impairment) Procedures CONSULT TO NEUROLOGY OFFICE/OUTPATIENT [facility] 60 MINUTES Alejandro Villar MD, PhD [address] [place] [address] Phone: tel: fax: Outpatient Referral [address] [place] [address] Referral IDStatusReasonStart DateExpiration DateVisits RequestedVisits [id number] PCP Requested Referral / Source Comments (unrecognize d section and content) In the event this informatio n is protected by the Federal Confidentiality of Alcohol and Drug Abuse Patient Records regulations: The Federal rules restrict any use of the information to criminally investigate or prosecute any alcohol or drug abuse patient.[facility] HealthIn the event this information is protected by the Federal Confidentiality of Alcohol and Drug Abuse Patient Records regulations: The Federal rules restrict any use of the information to criminally investigate or prosecute any alcohol or drug abuse patient.[facility] HealthIn the event this information is protected by the Federal Confidentiality of Alcohol and Drug Abuse Patient Records regulations: The Federal rules restrict any use of the information to criminally investigate or prosecute any alcohol or drug abuse patient.[facility] HealthIn the event this information is protected by the Federal Confidentiality of Alcohol and Drug Abuse Patient Records regulations: The Federal rules restrict any use of the information to criminally investigate or prosecute any alcohol or drug abuse patient.[facility] HealthIn the event this information is protected by [...] prosecute any alcohol or drug abuse patient.[facility] HealthIn the event this information is protected by the Federal Confidentiality of Alcohol and Drug Abuse Patient Records regulations: The Federal rules restrict any use of the information to criminally investigate or prosecute any alcohol or drug abuse patient.[facility] HealthIn the event this information is protected by the Federal Confidentiality of Alcohol and Drug Abuse Patient Records regulations: The Federal rules restrict any use of the information to criminally investigate or prosecute any alcohol or drug abuse patient.[facility] HealthIn the event this information is protected by the Federal Confidentiality of Alcohol and Drug Abuse Patient Records regulations: The Federal rules restrict any use of the information to criminally investigate or prosecute any alcohol or drug abuse patient.[facility] HealthIn the event this information is protected by the Federal Confidentiality of Alcohol and Drug Abuse Patient Records regulations: The Federal rules restrict any use of the information to criminally investigate or prosecute any alcohol or drug abuse patient.[facility] HealthIn the event this information is protected by the Federal Confidentiality of Alcohol and Drug Abuse Patient Records regulations: The Federal rules restrict any use of the information to criminally investigate or prosecute any alcohol or drug abuse patient.[facility] HealthIn the event this information is protected by the Federal Confidentiality of Alcohol and Drug Abuse Patient Records regulations: The Federal rules restrict any use of the information to criminally investigate or prosecute any alcohol or drug abuse patient.[facility] HealthIn the event this information is protected by the Federal Confidentiality of Alcohol and Drug Abuse Patient Records regulations: The Federal rules restrict any use of the information to criminally investigate or prosecute any alcohol or drug abuse patient.[facility] HealthIn the event this information is protected by the Federal Confidentiality of Alcohol and Drug Abuse Patient Records regulations: The Federal rules restrict any use of the information to criminally investigate or prosecute any alcohol or drug abuse patient.[facility] HealthIn the event this information is protected by the Federal Confidentiality of Alcohol and Drug Abuse Patient Records regulations: The Federal rules restrict any use of the information to criminally investigate or prosecute any alcohol or drug abuse patient.[facility] HealthIn the event this information is protected by the Federal Confidentiality of Alcohol and Drug Abuse Patient Records regulations: The Federal rules restrict any use of the information to criminally investigate or prosecute any alcohol or drug abuse patient.[facility] HealthIn the event this information is protected by the Federal Confidentiality of Alcohol and Drug Abuse Patient Records regulations: The Federal rules restrict any use of the information to criminally investigate or prosecute any alcohol or drug abuse patient.[facility] HealthIn the event this information is protected by the Federal Confidentiality of Alcohol and Drug Abuse Patient Records regulations: The Federal rules restrict any use of the information to criminally investigate or prosecute any alcohol or drug abuse patient.[facility] HealthIn the event this information is protected by the Federal Confidentiality of Alcohol and Drug Abuse Patient Records regulations: The Federal rules restrict any use of the information to criminally investigate or prosecute any alcohol or drug abuse patient.[facility] HealthIn the event this information is protected by the Federal Confidentiality of Alcohol and Drug Abuse Patient Records regulations: The Federal rules restrict any use of the information to criminally investigate or prosecute any alcohol or drug abuse patient.[facility] HealthIn the event this information is protected by the Federal Confidentiality of Alcohol and Drug Abuse Patient Records regulations: The Federal rules restrict any use of the information to criminally investigate or prosecute any alcohol or drug abuse patient.[facility] HealthIn the event this information is protected by the Federal Confidentiality of Alcohol and Drug Abuse Patient Records regulations: The Federal rules restrict any use of the information to criminally investigate or prosecute any alcohol or drug abuse patient.[facility] HealthIn the event this information is protected by the Federal Confidentiality of Alcohol and Drug Abuse Patient Records regulations: The Federal rules restrict any use of the information to criminally investigate or prosecute any alcohol or drug abuse patient.[facility] HealthIn the event this information is protected by the Federal Confidentiality of Alcohol and Drug Abuse Patient Records regulations: The Federal rules restrict any use of the information to criminally investigate or prosecute any alcohol or drug abuse patient.[facility] Care Teams (unrecognized sec tion and content) Team Status: Active Member Role Status Dates Broderick Ball , DO Primary Care Provider Active Team [...] 2025 Team Status: Inactive Member Role Status Riccardo Howard DO Primary Care Provider Active Start: February 21, 2025 End: February 21, 2025Josefina Adams APRN HAND III CUTTER-CAttending ProviderActive Start: February 21, 2025 End: February 21, 2025 Team Status: Active Member Role Status Riccardo [...] Provider Active Start: August 28, 2024 Katina Smita , MDAttending ProviderActiveStart: August 28, 2024 Team Status: Inactive Member Role Status Dates Broderick Howard DO Primary Care Provider Active Start: August 29, 2024 End: August 29ed Sanders MDAttending ProviderActiveStart: August 29, 2024 End: August 29, [...] Active Start: June 05, 2024 Keith Parks MDAttending ProviderActiveStart: June 05, 2024 Team Status: Inactive Member Role Status Riccardo Howard DO Primary Care Provider Active Start: June 08, 2024 End: June 08ivelisse Ordoñez , MDAttending ProviderActiveStart: June 08, 2024 End: [...] Care Provider Active Start: May 15, 2024 German Asif ProviderActiveStart: May 15, 2024 Team Status: Inactive [...] DateEnd Date Broderick Howard, DO [address] [place] [address] PCP - GeneralInternal Mpszajsf87/7/18 Kitty Valente MD [address] [place] [address] Primary Staff PhysicianCardiology01/31/19Team MemberRelationshipSpecialtyStart DateEnd Date Broderick Howard, DO [address] [place] [id number] PCP - GeneralInternal Zrtdhbgt00/7/18 Kitty Valente MD [address] [place] [address] Primary Staff PhysicianCardiology01/31/19Team MemberRelationshipSpecialtyStart DateEnd Date Broderick Howard, DO [address] [place] [id number] PCP - GeneralInternal Dtnurujm97/7/18 Kitty Valente MD [address] [place] [address] Primary Staff PhysicianCardiology01/31/19Team MemberRelationshipSpecialtyStart DateEnd Date Broderick Howard, DO [address] [place] [id number] PCP - GeneralInternal Sdlzrjfy10/7/18 Kitty Valente MD [address] [place] [address] Primary Staff PhysicianCardiology01/31/19Team MemberRelationshipSpecialtyStart DateEnd Date Broderick Howard, DO [address] [place] [id number] PCP - GeneralInternal Wkalypph55/7/18 Kitty Valente MD [address] [place] [address] Primary Staff PhysicianCardiology01/31/19 Team Status: Inactive Member Role Status Dates Broderick Howard DO Primary Care Provider, Attending Pr ovider Active Team MemberRelationshipSpecialtyStart DateEnd Date Broderick Howard, [address] [place] [id number] PCP - GeneralInternal Llpilgpr56/7/18 Kitty Valente MD [address] [place] [address] Primary Staff PhysicianCardiology01/31/19 Team Status: Inactive Member Role Status Dates Broderick Howard DO Primary Care Provider Active Niki Weeks , MDAttending ProviderActiveTeam MemberRelationshipSpecialty Start DateEnd Date Broderick Howard DO [address] [place] [place] [id number] [facility] - [facility] [place] Bsheghab65/7/18 Kitty Valente MD [address] [place] [address] Primary Staff PhysicianCarohiohealth doctors hospital01/31/19Team MemberRelationshipSpecialtyStart DateEnd Date Broderick Howard, [address] [place] [address] PCP - GeneralInternal Uxcdykse63/7/18 Kitty Valente MD [address] [place] [address] Primary Staff PhysicianCardiology01/31/19Team MemberRelationshipSpecialtyStart DateEnd Date Broderick Howard DO [address] [place] [address] PCP - GeneralInternal Ufhbiwwj90/7/18 Kitty Valente MD [address] [place] [address] Primary Staff PhysicianCardiology01/31/19Team MemberRelationshipSpecialtyStart DateEnd Date Broderick Howard DO [address] [place] [address] PCP - GeneralInternal Gcqjcdle91/7/18 Kitty Valente MD [address] [place] [address] Primary Staff PhysicianCardiology01/31/19Team MemberRelationshipSpecialtyStart DateEnd Date Broderick Howard DO [address] [place] [address] PCP - GeneralInternal Jmugavyw44/7/18 Kitty Valente MD [address] [place] [address] Primary Staff PhysicianCardiology01/31/19 Team Status: Inactive Member Role Status Dates Broderick Howard DO Attending Provider Active Sta rt: November 24, 2023 End: November 24, 2023 Team Status: Inactive Member Role Status Dates Broderick Howard DO Primary Care Provide r, Attending Provider Active Start: February 09, 2024 End: February 09, 2024Team MemberRelationshipSpecialtyStart DateEnd Date Broderick Howard DO [address] [place] [address] PCP - GeneralInternal Sgdoifdv66/7/18 Kitty Valente MD [address] [place] [address] Primary Staff PhysicianCardiology01/31/19 Team Status: Active Member Role Status Dates Broderick Howard DO Primary Care Provide r, Attending Provider Active Start: February 10, 2024 Team Status: Active Member Role Status Dates Broderick Howard DO Primary Care Provider Active Start: February 15, 2024 Al Golden ProviderActiveStart: February 15, 2024 Team MemberRelationshipSpecialtyStart DateEnd Date Broderick Howard DO [address] [place] [address] PCP - GeneralInternal Wfazxptb90/7/18 Kitty Valente MD [address] [facility] [facility] [place] [place] [address] Primary Staff PhysicianCardiology01/31/19Team MemberRelationshipSpecialtyStart DateEnd Date Broderick Howard DO [address] [place] [address] PCP - GeneralInternal Fykwmamq88/7/18 Kitty Valente MD [address] [place] [address] Primary Staff PhysicianCardiology01/31/19Team MemberRelationshipSpecialtyStart DateEnd Date Broderick Howard DO [address] [place] [id number] PCP - GeneralInternal Ltviwzrj00/7/18 Kitty Valente MD [address] [place] [address] Primary Staff PhysicianCardiology01/31/19Team MemberRelationshipSpecialtyStart DateEnd Date Broderick Howard MD [address] [place] [address] PCP - GeneralInternal Medicine05/03/24Team MemberRelationshipSpecialtyStart Date End Date Broderick Howard MD [address] [place] [address] PCP - GeneralValleywise Health Medical Centernal [facility]05/03/24Team MemberRelationshipSpecialtyStart Date End Date Broderick Howard DO [address] [place] [address] PCP - GeneralInternal Yyznuzmo13/7/18 Kitty Valente MD [address] [place] [address] Primary Staff PhysicianCardiology01/31/19Team MemberRelationshipSpecialtyStart DateEnd Date Broderick Howard DO [address] [place] [address] PCP - GeneralValleywise Health Medical Centernal Vtyrspot55/7/18 Kitty Valente MD [address] [place] [address] Primary Staff PhysicianCardiology01/31/19Team MemberRelationshipSpecialtyStart DateEnd Date Broderick Howard DO [address] [place] [address] PCP - GeneralInternal Saujgqoy56/7/18 Kitty Valente MD [address] [place] [address] Primary Staff PhysicianCardiology01/31/19 Team Status: Inactive Member Role Status Dates Broderick Howard DO Primary Care Provider Active Start: February 22, 2025 End: February 22ivelisse Ordoñez , MDAttending ProviderActiveStart: February 22, 2025 End: February 22, 2025Team MemberRelationshipSpecialtyStart DateEnd Date Broderick Howard DO [address] [place] [id number] PCP - GeneralValleywise Health Medical Centernal Vfyjrhum56/7/18 Kitty Valente MD [address] [place] [address] Primary Staff PhysicianCarology01/31/19 Team Status: Inactive Member Role Status Dates Broderick Howard DO Primary Care Provider Active Start: July 02, 2025 End: July 02wolf Howard DOAttsumaya ProviderActiveStart: July 02, 2025 End: July 02, 2025Team MemberRelationshipSpecialtyStart DateEnd Date Broderick Howard DO [address] [place] [address] PCP - [facility]09/21/18 Kitty Valente MD [address] [place] [address] Primary Staff PhysicianValley Health01/31/19 Team Status: Active Member Role Status Dates [...] Active Start: August 15, 2025 End: August 15bdul Smita , MDAttending ProviderActiveStart: August 15, 2025 End: August 15, 2025 Team Status: Inactive Member Role Status Dates Broderick Howard DO Primary Care Provider Active Start: August 28, 2025 End: August 28, 2025Hank Maher , NICOLETTENAttending ProviderActiveStart: August 28, 2025 End: August 28, 2025 Team Status: Active Member Role/Relationship Status Dates Broderick Howard DO Primary Care Provider Active Team Status: Inactive Member Role/Relationship Status Dates Broderick Howard DO Primary Care Provider Active Start: July 02, 2025 End: July 02enmary jo Howard DOAttending ProviderActiveStart: July 02, 2025 End: July 02, 2025 Team Status: Active Member Role/Relationship Status Dates Broderick Howard DO Primary Care Provider Active Start: July 23, 2025 Tiana Brush HAND III CUTTER-COther ProviderActiveStart: July 23, 2025 Leandra Gama , MDAttending ProviderActiveStart: July 23, 2025 Team Status: Inactive Member Role/Relationship Status Dates Broderick Howard DO Primary Care Provider Active Start: August 01, 2025 End: August 01penny Brush HAND III CUTTER-CAttending ProviderActiveStart: August 01, 2025 End: August 01, 2025 Team Status: Active Member Role/Relationship Status Dates Broderick Howard DO Primary Care Provider Active Start: August 06, 2025 Katina Smita , MDAttending ProviderActiveStart: August 06, 2025 Team Status: Inactive Member Role/Relationship Status Dates Broderick Howard DO Primary Care Provider Active Start: August 15, 2025 End: August 15bdul Smita , MDAttending ProviderActiveStart: August 15, 2025 End: August 15, 2025 Team Status: Inactive Member Role/Relationship Status Dates Broderick Howard DO Primary Care Provider Active Start: August 28, 2025 End: August 28, 2025Hank Maher , APRNAttenalberto ProviderActiveStart: August 28, 2025 End: August 28, 2025 Team Status: Inactive Member Role/Relationship Status Dates Broderick Howard DO Primary Care Provider Active Start: September 06, 2025 End: September 06wolf DO LeeAttending ProviderActiveStart: September 06, 2025 End: September 06, 2025 Team Status: Inactive Member Role/Relationship Status Dates Broderick Howard DO Primary Care Provider Active Start: September 10, 2025 End: September 10, 2025Low Littlejohn Attending ProviderActiveStart: September 10, 2025 End: September 10, 2025 INFORMATION SOURCE (unrecogn ized section and content) DATE CREATED AUTHOR 07/24/2022 [facility] DATE CREATED AUTHOR AUTHOR'S ORGANIZ ATION 04/23/2023 [facility] DATE CREATED AUTHOR AUTHOR'S ORGANIZ ATION 06/11/2023 [facility] DATE CREATED AUTHOR AUTHOR'S ORGANIZ ATION 10/26/2024 [facility] DATE CREATED AUTHOR AUTHOR'S ORGANIZ ATION 10/28/2024 [facility] DATE CREATED AUTHOR AUTHOR'S ORGANIZ ATION 11/05/2024 [facility] DATE CREATED AUTHOR AUTHOR'S ORGANIZ ATION 11/06/2024 [facility] DATE CREATED AUTHOR AUTHOR'S ORGANIZ ATION 11/08/2024 [facility] DATE CREATED AUTHOR AUTHOR'S ORGANIZ ATION 12/15/2024 [facility] DATE CREATED AUTHOR AUTHOR'S ORGANIZ ATION 05/24/2025 [facility] DATE CREATED AUTHOR AUTHOR'S ORGANIZ ATION 05/31/2025 [facility] DATE CREATED AUTHOR AUTHOR'S ORGANIZ ATION 07/19/2025 [facility] DATE CREATED AUTHOR AUTHOR'S ORGANIZ ATION 08/05/2025 [facility] DATE CREATED AUTHOR AUTHOR'S ORGANIZ ATION 08/31/2025 [facility] Goals (unrecognized section and content) Goals may [...] BE BASED ON THE PRIMARY CLINICAL RECORDS. [facility] [employer] [facility]. provides no warranty or guarantee of the accuracy or completeness of information in this document.
[2025-10-12 03:15] LABS: INR 2.53; Partial Thromboplastin Time 34.7 sec (22.3-36.2); Prothrombin Time 24.5 sec (9.0-11.6)
--- NOTE | 2025-10-12 03:20 | ED.GENADUL1 ---
HPI HPI - General Adult General Chief complaint: Chest Pain Stated complaint: CHEST PAIN Time Seen by Provider: 10/12/25 02:47 Source: patient Mode of arrival: ambulance Limitations: no limitations History of Present Illness HPI narrative: Patient is a 75-year-old female presenting to the emergency department with her and son for evaluation of chest pain. The patient woke up in the middle of the night out of her sleep with acute onset of left-sided chest pain. Patient is having a hard time providing history, cannot provide much detail about the chest pain. She states it is located left side of her chest. She cannot determine if the pain radiates and cannot characterize the pain. She states she is mildly nauseous but has had no vomiting. No abdominal pain. No fevers or chills. Her is at the bedside. He states that prior to this episode of chest pain, she has been in her normal state of health. She was acting appropriately last night, eating and drinking normally. He states she has a history of pancreatic cancer s/p Whipple procedure and has been in remission for the last 10 years. She has a history of a pacemaker placed 8 years ago for low heart rate . She is also on Coumadin and has an IVC filter for history of DVT/PTE. He denies the patient having history of coronary artery disease, prior coronary stents, or valve replacement. Related Data Home Medications ?Medication ?Instructions ?Recorded ?Confirmed carvedilol 12.5 mg tablet 12.5 mg PO BID 05/04/24 10/12/25 levetiracetam 750 mg tablet 750 mg PO BID 05/04/24 10/12/25 losartan 25 mg tablet 25 mg PO DAILY 05/04/24 10/12/25 omeprazole 40 mg capsule,delayed 40 mg PO DAILY 05/04/24 10/12/25 release ondansetron 4 mg disintegrating 4 mg PO DAILY PRN nausea and 05/04/24 10/12/25 tablet vomiting venlafaxine 150 mg 150 mg PO DAILY 05/04/24 10/12/25 capsule,extended release 24 hr warfarin 4 mg tablet 4 mg PO DAILY 05/04/24 10/12/25 zonisamide 100 mg capsule 300 mg PO .qhs 05/04/24 10/12/25 amlodipine 5 mg tablet 5 mg PO DAILY 07/04/25 10/12/25 ergocalciferol (vitamin D2) 1,250 1,250 mcg PO QWEEK 07/04/25 10/12/25 mcg (50,000 unit) capsule ferrous sulfate 325 mg (65 mg 325 mg PO 07/04/25 iron) tablet linaclotide 72 mcg capsule 72 mcg PO DAILY 07/04/25 10/12/25 (Linzess) amitriptyline 50 mg tablet mg 10/12/25 furosemide 20 mg tablet mg 10/12/25 Allergies Allergy/AdvReac Type Severity Reaction Status Date / Time dexamethasone Allergy Unknown Rash Verified 10/12/25 02:48 pregabalin (From Lyrica) Allergy Unknown Rash Verified 10/12/25 02:48 Opioid HPI Opioid Management Most Recent Opioid Data: Last Pain Scale 10 Today, 03:26 Last MAR Pain Assessment Today, 03:26 Review of Systems ROS Status of ROS 10 or more systems reviewed and unremarkable except as noted in history and below [facility] Medical History (Updated 10/12/25 @ 05:58 by Hang Loyola DO) Low back pain ?M54.50 - Low back pain, unspecified (ICD-10) Osteoarthritis ?M19.90 - Unspecified osteoarthritis, unspecified site (ICD-10) Pancreatic cancer ?C25.9 - Malignant neoplasm of pancreas, unspecified (ICD-10) Seizure ?R56.9 - Unspecified convulsions (ICD-10) Acid reflux ?K21.9 - Gastro-esophageal reflux disease without esophagitis (ICD-10) Bradycardia ?R00.1 - Bradycardia, unspecified (ICD-10) Asthma ?J45.909 - Unspecified asthma, uncomplicated (ICD-10) Hypertension ?I10 - Essential (primary) hypertension (ICD-10) Surgical History S/P placement of cardiac pacemaker ?Z95.0 - Presence of cardiac pacemaker (ICD-10) 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) ?Z90.49 - Acquired absence of other specified parts of digestive tract (ICD-10) S/P brain surgery ?Z98.890 - Other specified postprocedural states (ICD-10) H/O lumbosacral spine surgery ?Z98.890 - Other specified postprocedural states (ICD-10) H/O cervical spine surgery ?Z98.890 - Other specified postprocedural states (ICD-10) Status post shoulder surgery ?Z98.890 - Other specified postprocedural states (ICD-10) Hx of cholecystectomy ?Z90.49 - Acquired absence of other specified parts of digestive tract (ICD-10) History of appendectomy ?Z90.49 - Acquired absence of other specified parts of digestive tract (ICD-10) Social History Little interest or pleasure in doing things: not at all Feeling down, depressed, or hopeless: not at all Exam Narrative Exam Narrative: CONSTITUTIONAL: Patient is somnolent but easily arousable to verbal stimuli. She is slow to answer questions, but is oriented x 3 and following commands appropriately SKIN: Was warm and dry. No rashes on the chest wall. EYES: PERRLA. No conjunctival pallor. EARS, NOSE, THROAT: No JVD. Dry mucous membranes. RESPIRATORY: Clear to auscultation bilaterally, no wheezes, crackles, or stridor, no use of accessory muscles CARDIOVASCULAR: Normal rate and regular rhythm. There is no S3, S4, murmur, rub. Radial and dorsalis pedis pulses are 2+ and symmetrical. GASTROINTESTINAL: Abdomen was soft, non-tender, and non-distended. There is no guarding or rebound tenderness MUSCULOSKELETAL: There was no lower extremity edema, erythema, or tenderness. There is reproducible tenderness palpation over the left side of her chest. Her right sided pacemaker has no overlying skin changes or evidence of infection. NEUROLOGIC: Equal strength in all extremities. Facies were symmetrical. Constitutional Vital Signs, click to edit/add: Last Vital Signs Temp 97.5 F L 10/12/25 02:40 Pulse 60 10/12/25 06:01 Resp 19 10/12/25 06:01 BP 103/38 L 10/12/25 06:01 Pulse Ox 97 10/12/25 06:01 O2 Del Method Room Air 10/12/25 02:40 Course Vital Signs Vital signs: Vital Signs Temperature 97.5 F L 10/12/25 02:40 Pulse Rate 62 10/12/25 02:40 Respiratory Rate 18 10/12/25 02:40 Blood Pressure 140/47 L 10/12/25 02:40 Pulse Oximetry 100 10/12/25 02:40 Oxygen Delivery Method Room Air 10/12/25 02:40 Temperature 97.5 F L 10/12/25 02:40 Pulse Rate 60 10/12/25 06:01 Respiratory Rate 19 10/12/25 06:01 Blood Pressure 103/38 L 10/12/25 06:01 Pulse Oximetry 97 10/12/25 06:01 Oxygen Delivery Method Room Air 10/12/25 02:40 Medical Decision Making MDM Narrative Medical decision making narrative: Patient is a 75-year-old female presenting to the emergency department for acute onset left-sided chest pain that awoke her from her sleep. Vital signs on arrival are significant for mild hypertension, otherwise were within normal limits. She is afebrile and hemodynamically stable. She saturating 100% on room air in no respiratory distress. Other than reproducible tenderness to palpation over the left side of her chest, her exam is unremarkable. Differential diagnosis includes ACS, pacemaker malfunction, pneumothorax, aortic dissection, musculoskeletal chest pain, or other electrolyte/metabolic derangement. Lower suspicion for PE as she is on Coumadin. IV was established and laboratory studies were obtained. CT angio of the chest/abdomen/pelvis and CT head were ordered. She was given 2 mg IV morphine and 4 mg IV Zofran for symptomatic treatment. 12 Lead EKG: Atrial paced rhythm at a normal rate of 60 bpm. Normal axis. No ST segment elevations or depressions. QRS, [place], and QTc interval within normal limits. Final impression: Atrial paced rhythm without evidence of acute myocardial ischemia or pacemaker malfunction. Laboratory studies were unremarkable. No significant electrolyte or metabolic derangement. No evidence of acute kidney injury. No significant anemia, leukocytosis, or thrombocytopenia. No significant transaminitis or hyperbilirubinemia. Initial 2-hour repeat troponin are not elevated. INR within therapeutic range. CT head independently reviewed/interpreted by myself demonstrated no acute intracranial pathology or hemorrhage. CT angio of the chest/abdomen/pelvis demonstrated no acute process. On reevaluation, patient states she feels improved and her pain is subsided. Repeat vital signs remain normal. She feels comfortable being discharged home. Unclear as to the exact etiology to explain the patient's symptoms, however given the unremarkable workup, I do not believe there is an acute, emergent process that requires hospitalization. Return precautions were given including any new or concerning symptoms. She was instructed to follow-up with her PCP for further care. Patient understands and agrees to plan. FINAL IMPRESSION: #Acute chest pain, resolved DISPOSITION: Discharged home CONDITION: Good Medical Records Medical records reviewed: Yes I reviewed the patient's medical records Lab Data Lab results reviewed: Yes I reviewed the patient's lab results Labs: Lab Results 10/12/25 10/12/25 Range/Units 02:53 04:30 WBC 4.6 (4.0-11.0) 10^3/uL RBC 3.60 L (4.20-5.40) 10^6/uL Hgb 11.9 L (12.0-16.0) g/dL Hct 36.2 (36.0-48.0) % MCV 100.6 H (81.0-99.0) fL MCH 33.1 (26.7-34.0) pg MCHC 32.9 (29.9-35.2) g/dL RDW 12.8 (11.0-15.0) % Plt Count 176 (150-450) 10^3/uL MPV 9.7 (9.5-13.5) fL Neut % (Auto) 64.1 (43.0-75.0) % Lymph % (Auto) 26.0 (20.5-60.0) % [place] % (Auto) 6.5 (1.7-12.0) % Eos % (Auto) 2.8 (0.9-7.0) % Baso % (Auto) 0.2 (0.2-2.0) % Neut # (Auto) 3.0 (1.4-6.5) 10^3/uL Lymph # (Auto) 1.2 (1.2-3.8) 10^3/uL [place] # (Auto) 0.3 (0.3-0.8) 10^3/uL Eos # (Auto) 0.1 (0.0-0.7) 10^3/uL Baso # (Auto) 0.0 (0.0-0.1) 10^3/uL Abs Immat Gran (auto) 0.02 (0.00-0.03) 10^3/uL Imm/Tot Granulo (auto) 0.4 (0.0-0.5) % PT 24.5 H (9.0-11.6) sec INR 2.53 APTT 34.7 (22.3-36.2) sec Sodium 138 (136-145) mmol/L Potassium 4.1 (3.5-5.1) mmol/L Chloride 107 (98-107) mmol/L Carbon Dioxide 24.2 (21.0-32.0) mmol/L Anion Gap 10.9 BUN 21.0 H (7.0-18.0) mg/dL Creatinine 1.69 H (0.55-1.02) mg/dL Est GFR ( Amer) 36 L (>=60 mL/min/1.73m^2) Est GFR (Non-Af Amer) 30 L (>=60 mL/min/1.73m^2) BUN/Creatinine Ratio 12.4 Glucose 113 H (74-106) mg/dL Calcium 8.4 L (8.5-10.1) mg/dL Total Bilirubin 0.5 (0.2-1.0) mg/dL AST 94 H (15-37) U/L ALT 45 (14-59) U/L Alkaline Phosphatase 183 H (46-116) U/L Troponin I High Sens 6.0 5.7 (4.0-51.3) pg/mL NT-Pro-B Natriuret Pep 211.0 (<=1800.0) pg/mL Total Protein 6.0 L (6.4-8.2) g/dL Albumin 3.1 L (3.4-5.0) g/dL Globulin 2.9 g/dL Albumin/Globulin Ratio 1.[address] scan - abdomen: Attestation: I personally reviewed and interpreted this imaging study as follows: ECG Data Attestation: I personally reviewed and interpreted this ECG as follows: Discharge Plan Discharge Chief Complaint: Chest Pain Clinical Impression: Atypical chest pain Patient Disposition: Home, Self-Care Time of Disposition Decision: 05:58 Condition: Good Mode of Transportation: Private Vehicle Prescriptions / Home Meds: No Action carvedilol 12.5 mg tablet 12.5 mg PO BID zonisamide 100 mg capsule 300 mg PO .qhs losartan 25 mg tablet 25 mg PO DAILY venlafaxine 150 mg capsule,extended release 24hr 150 mg PO DAILY omeprazole 40 mg capsule,delayed release(DR/EC) 40 mg PO DAILY levetiracetam 750 mg tablet 750 mg PO BID warfarin 4 mg tablet 4 mg PO DAILY ondansetron 4 mg tablet,disintegrating 4 mg PO DAILY PRN (Reason: nausea and vomiting) amlodipine 5 mg tablet 5 mg PO DAILY ferrous sulfate 325 mg (65 mg iron) tablet 325 mg PO ergocalciferol (vitamin D2) 1,250 mcg (50,000 unit) capsule 1,250 mcg PO QWEEK Linzess 72 mcg capsule 72 mcg PO DAILY amitriptyline 50 mg tablet furosemide 20 mg tablet Print Language: Pashto Instructions: Chest Pain (ED) Referrals: Broderick Joiner DO [Primary Care Provider, Internal Medicine] - 1 week
[2025-10-12 03:23] LABS: Alanine Aminotransferase 45 U/L (14-59); Albumin Globulin Ratio 1.1; Albumin Level 3.1 g/dL (3.4-5.0); Alkaline Phosphatase 183 U/L (46-116); Anion Gap 10.9; Aspartate Amino Transferase 94 U/L (15-37); Blood Urea Nitrogen 21.0 mg/dL (7.0-18.0); Calcium 8.4 mg/dL (8.5-10.1); Carbon Dioxide 24.2 mmol/L (21.0-32.0); Chloride 107 mmol/L (98-107); Estimated GFR (African America 36 (>=60 mL/min/1.73m^2); Estimated GFR (Non-African Ame 30 (>=60 mL/min/1.73m^2); Globulin 2.9 g/dL; Glucose 113 mg/dL (74-106); NT Pro B Type Natriuretic Pept 211.0 pg/mL (<=1800.0); Potassium 4.1 mmol/L (3.5-5.1); Sodium 138 mmol/L (136-145); Total Protein 6.0 g/dL (6.4-8.2)
[2025-10-12] MEDS: MORPHINE SULFATE 2 MG/ML SYRINGE IV (03:26)
== END 2025-10-12 06:29 | disposition home or self-care (01) ==
PROVIDERS: Emergency Provider Student in an Organized Health Care Education/Training Program; PCP Internal Medicine
DX: R07.89 Other chest pain (principal); Z85.07 Personal history of malignant neoplasm of pancreas; Z79.01 Long term (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 of anticoagulants; Z86.718 Personal history of other venous thrombosis and embolism; Z95.0 Presence of cardiac pacemaker
CPT/HCPCS: 36415; 70450; 71275; 74174; 80053; 83880; 84484; 85025; 85610; 85730; 93005; 96374; 96375; 99285; J2270; J2405; Q9967

== ENCOUNTER 2025-10-15 09:44 | Outpatient (RCR) | payer MEDICARE, SELFPAY | END 2025-11-14 12:38 | disposition home or self-care (01) | LOC: MM 09:44 | PROVIDERS: PCP Internal Medicine; Visit Provider Internal Medicine | DX: Z51.81 Encounter for therapeutic drug level monitoring (principal); Z79.01 Long term (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 of anticoagulants; I82.409 Acute embolism and thrombosis of unspecified deep veins of unspecified lower extremity | CPT/HCPCS: 85610; G0463 ==

== ENCOUNTER 2025-10-29 10:47 | Outpatient (OUT) | payer MEDICARE, SELFPAY ==
--- OUTSIDE RECORDS SUMMARY | 2025-10-26 06:55 | XMS_ITS | Continuity of Care Document ---
Author Organization [facility] Address [address] [place] [address] Phone Care Team Providers Care Child Advocate Name Role Phone Broderick Joiner DO Primary Care Provider Tiana Brush Attending Provider [phone] Luc Ordoñez Attending Provider [phone] Hank Maher CORRECTIONS CASEWORKER Attending Provider [phone] Broderick Joiner DO Attending Provider Low Littlejohn DO Attending Provider Low Littlejohn DO Other Provider Huy Sen MD Attending Provider Hang Loyola DO Attending Provider Ana M Alas CMA Attending Provider Unavaila [facility] Care Teams Patient Care Team Team Status: [...] Ordoñez , MDAttending ProviderActiveStart: August 06, 2025 Visit Care Team Team Status: Inactive Member Role/Relationship Status Dates Broderick Joiner DO Primary Care Provider Active Start: August 15, 2025 End: August 15bdimelda Salazarr , MDAttending ProviderActiveStart: August 15, 2025 End: August 15, 2025 Visit Care Team Team Status: Inactive Member Role/Relationship Status Dates Broderick Joiner DO Primary Care Provider Active Start: August 28, 2025 End: August 28, 2025Hank Maher , APRNAttending ProviderActiveStart: August 28, 2025 End: August 28, 2025 Visit Care Team Team Status: Inactive Member Role/Relationship Status Dates Broderick Joiner DO Primary Care Provider Active Start: September 06, 2025 End: September 06enmary jo Joiner , DOAttending ProviderActiveStart: September 06, 2025 End: September 06, 2025 Visit Care Team Team Status: Inactive Member Role/Relationship Status Dates Broderick Joiner DO Primary Care Provider Active Start: September 10, 2025 End: September 10, 2025Low Littlejohn , DOAttending ProviderActiveStart: September 10, 2025 End: September 10, 2025 Visit Care Team Team Status: Active Member Role/Relationship Status Dates Broderick Joiner DO Primary Care Provider Active Start: October 03, 2025 Low Ana Littlejohn , DOOther ProviderActiveStart: October 03, 2025 Huy Sen , MDAttending ProviderActiveStart: October 03, 2025 Visit Care Team Team Status: Inactive Member Role/Relationship Status Dates Broderick Joiner DO Primary Care Provider Active Start: October 09, 2025 End: October 09, 2025Hank Maher , APRNAttending ProviderActiveStart: October 09, 2025 End: October 09, 2025 Visit Care Team Team Status: Active Member Role/Relationship Status Dates Broderick Joiner DO Primary Care Provider Active Start: October 12, 2025 Hang Loyola , DOAttending ProviderActiveStart: October 12, 2025 Visit Care Team Team Status: Active Member Role/Relationship Status Dates Broderick Joiner DO Primary Care Provider Active Start: October 15, 2025 Ana M Alas CMAYun ProviderActiveStart: October 15, 2025 Visit Care Team Team Status: Inactive Member Role/Relationship Status Dates Broderick Joiner DO Primary Care Provider Active Start: October 17, 2025 End: October 17, 2025Rosie Bartlett ProviderActiveStart: October 17, 2025 End: October 17, 2025 Patient Care Team Team Status: Inactive Member Role/Relationship Status Dates Broderick Joiner DO Primary Care Provider Active Start: October 26, 2025 End: October 26wolf Jioner DOAttsumaya ProviderActiveStart: October 26, 2025 End: October 26, 2025 Chief Complaint and Reason for Visit Chief Complaint Admit Date M96.1 M48.062 M54.17 August 01 7:15am renal 6 month f/u August 15, 2025 9: 36am 1 year follow up August 28, 2025 9 :35am Flu Shot September 06, 2025 1 0:45am POSTLAMINECTOMY SYNDROME September 10, 2 025 8:51am R20.2 October 03, 2025 10:59am 6wk Nausea October 09, 2025 10:14am Amb Documentation October 15, 2025 1 2:00pm M96.1 M48.062 October 17, 2025 7 :55am [facility] ER f/u October 26, 2025 10:46am Reason for Visit Admit Date Anemia of [...] (gastroesophageal reflux disease) N ovember 2024 10:14am History of pancreatic cancer October 092024 10:14am History of Whipple procedure October 092024 10:14am Irritable bowel syndrome with constipati on October 09, 2025 10:14am Nausea October 09, 2025 10:14am Abdominal pain October 26, 2025 10:46am Age-related osteoporosis wit hout current pathological fracture October 26, 2025 10:46am Chest pain October 26, 2025 10:46am Chronic kidney disease October 26 10:46am Elevated transaminase level October 10:46am Gastroesophageal reflux dise ase with esophagitis without hemorrhage October 26, 2025 10:46am History of pancreatic cancer October 262024 10:46am Hypertension October 26, 2025 10:46am Lumbar stenosis with neurogenic claudica tion October 26, 2025 10:46am Major depression October 26, 2025 10:46am Nausea October 26, 2025 10:46am Allergies, Adverse Reactions, Alerts Allergen Type Severity Reaction Last Updated Verified Status dexamethasone Allergy Unknown Rash October 26, 2025 10:53a m Yes Active pregabalin Allergy Unknown Rash October 26, 2025 10:53am Y es Active rifaximin Allergy Unknown rash October 26, 2025 10:53am Ye s Active Social History Smoking Status [...] thrombosis) July 20, 2023 10:16am Unknown Active Elevated transaminase levelDecember 2024 11:48amUnknownActiveBilateral lower extremity edemaApril 2024 1:16pmUnknownActivePostoperative pain after spinal surgeryApril 2023 11:23amUnknownActiveHistory of Whipple procedure September 11, 2025 2:28pmUnknownActiveLumbosacral spondylosis with radiculopathy May 2023 9:31pmUnknownActiveGastroesophageal reflux disease with esophagitis without [...] GFR 15-29 ml/minJuly 2023 11:38amUnknownActiveCurrent use of long chain dyeing machine operator anticoagulationMarch 2023 10:12amUnknownActiveHypertensive chronic kidney disease with [...] 10:07amUnknownActiveAnemia of renal disease June 08, 2024 1:52pmUnknownActiveAbdominal painDecember 2024 11:45am UnknownActiveIrritable bowel syndrome with constipationMarch 2023 10:12am UnknownActiveChest painDecember 2024 9:18pmUnknownActiveHypertension July 20, 2023 10:13amUnknownActiveNauseaOctober 2024 8:46amUnknown ActiveVitamin D deficiencyMarch 2023 10:12amUnknownActiveIBS (irritable colon syndrome)September 11, 2025 2:27pmUnknownActiveLumbar spondylosisMay 2023 9:29pmUnknownActiveAsthmaMarch 2023 10:12amUnknownActiveLumbar stenosis with neurogenic claudicationMarch 2023 8:20pmUnknownActive Inactive/Resolved Problems Problem Diagnosis/Recorded Date Onset Date Status [...] 12:08pm February 13, 2025 6:42amhtnLosartan 25 mg rwcjvnJztgjvotuqli13RGJFWicao iqrnjzp92 903March 2023 12:09pmDecember 2023 5:58pmhtnVenlafaxine 150 mg capsule,extended release 89rmPzoiewdtacya2.ROUTE.SPLGUJO201Jnkep 2023 12:31pmOctober 2023 6:38pmTAKE 1 CAPSULE BY MOUTH EVERY DAYTramadol 50 mg euhcsrKktudaiuxcvg09DCPAOknqq daily as needed for gzxc02590Htg 2023 2:16pm October 27, 2024 9:00amSpondylosis of lumbosacral spine with radiculopathy Other spondylosis with radiculopathy, lumbosacral regionCarvedilol 12.5 mg tabletDiscontinued0.ROUTE.YTUXUBQ6785Nkbk 2023 5:47amOctober 2023 8:21amTAKE 1 TABLET BY MOUTH TWICE A DAYOndansetron 4 mg tablet,disintegrating Discontinued0.ROUTE.UXGWASO928Ewwl 2023 7:49amJuly 2024 12:13pm DISSOLVE 1 TABLET IN MOUTH EVERY 6 HOURS NEEDED FOR NAUSEAVenlafaxine 150 mg capsule,extended release 49udXujhnwnljhkc4.ROUTE.FWUQUHN953Jnnbfvl 2023 6:38pmApril 2024 6:42amTAKE 1 CAPSULE BY MOUTH EVERY DAYLosartan 25 mg ewlxfvYiivqpqtmwyu53PDUJLysud acrxbaz59797Vzalxpne 25th, 2024 5:58pmDecember 2023 2:47pmhtnLosartan 25 mg qnutsbHrrbdn43UESDVikws ymqrsaq8370221 November 12, 2024 2:46pmhtnComplies with drug therapyWarfarin 4 mg tablet Active0.ROUTE.WHCKNBJ265Jbfrkcf 2024 1:07pmTAKE 1 TABLET BY MOUTH EVERY DAY DIRECTED BY [facility] 90Complies with drug therapyDoxycycline Hyclate 100 mg vvrodqcJikxhlepzsey605UFNGSdpck vavel40930Yvbnhyg 2024 12:00amApril 2024 1:07pmAmlodipine 5 mg tabletDiscontinued0.ROUTE.QJTCASP023Anwdo 2024 6:42amApril 2024 9:43amTAKE 1 TABLET BY MOUTH EVERY MORNING FOR HYPERTENSIONVenlafaxine 150 mg capsule,extended release 97zuPmismbrpprps3.ROUTE .FJHCPMU738Fsffs 2024 6:42amApril 2024 9:43amTAKE 1 CAPSULE BY MOUTH EVERY DAYFerrous Sulfate 325 mg (65 mg iron) tabletDiscontinued0.ROUTE.WMZAMVH00 1April 2024 7:41amSeptember 2024 9:05amTAKE 1 TABLET BY MOUTH EVERY 48 HOURSCarvedilol 12.5 mg tabletDiscontinued0.ROUTE.KUEACMK8764Yal 2024 4:07pmOctober 2024 8:48amTAKE 1 TABLET BY MOUTH TWICE A DAYErgocalciferol (Vitamin D2) 1,250 mcg (50,000 unit) capsuleDiscontinued0.ROUTE.NUSUTYE390Ixf 2024 8:33amOctober 2024 8:48amTAKE 1 CAPSULE BY MOUTH ONCE EVERY WEEK Ondansetron 4 mg tablet,disintegratingActive0.ROUTE.ACFHAAJ952Vbxs 2024 12:13pmDISSOLVE 1 TABLET IN MOUTH EVERY 6 HOURS NEEDED FOR NAUSEAComplies with drug therapyVenlafaxine 150 mg capsule,extended release 28uuHvocaazcynpm7 .ROUTE.SNUOLIC470Ybqgxvmek 2024 5:54amOctober 2024 8:48amTAKE 1 CAPSULE BY MOUTH EVERY DAYFerrous Sulfate 325 mg (65 mg iron) tabletActive0 .ROUTE.BBLRBNN431Mmabygsli 2024 9:05amTAKE 1 TABLET BY MOUTH EVERY 48 HOURSComplies with drug therapyFurosemide 20 mg tabletDiscontinued0.ROUTE .STKBSXM808Uyptufw 2024 7:59amOctober 2024 8:48amTAKE 1 TABLET BY MOUTH EVERY DAYOmeprazole 40 mg capsule,delayed release(DR/EC)Active0.ROUTE .DEDQSRC686Gsyvhrr 2024 2:37pmTAKE 1 CAPSULE BY MOUTH 30 MINUTES BEFORE THE MORNING MEAL FOR GERDComplies with drug therapyCarvedilol 12.5 mg tablet Yueqyttlbjzs37.5MGPOTwice dailySeptember 2022 11:00pmMarch 2023 10:21amAmlodipine 5 mg jltrriZorkehgskagj9ZRZXFmhjk morningSeptember 2022 11:00pmMarch 2023 12:08pmhtnAmitriptyline 10 mg andlpsAkdlqyezbxdp74SBUX Daily at bedtimeSeptember 2022 11:00pmJuly 2023 1:32pmnauseaWarfarin 2 mg HhaeouOetvukhoutpj0CJAAshcmc Wednesday, Wednesday, Wednesday, and Sundayseptember 2022 11:00pmMarch 2023 10:26amOmeprazole 40 mg capsule,delayed release(DR/EC)Tpsmwxtckmbr35OZCCKzknc morningSeptember 2022 10:46amOctober 2023 10:05amgerdLosartan 25 mg gqoapgDvcqzmkqkbpm82WBVDOusrj morning [place] 2022 11:00pm[facility] 20[facility] 12:09pmhtnVenlafaxine 150 mg capsule,extended release 90boWoeruzxuzrgk539ZVKYSpqyv morningSeptember 2022 11:00pm[facility] 2023 10:23amAcetaminophen (Tylenol Extra Strength) 500 mg OudpmfkYzegjclbqjkr1818PEBAE4Y as needed for PainSeptember 2022 11:00pm February 08, 2024 10:20amEnoxaparin (Lovenox) 100 mg/mL ApxdahhMyjuxebrhvpz80PF SUBCUTDailySeptember 2022 11:00pmJuly 2023 1:29pmTizanidine 4 mg MsrxjaQpixwxiyyjkl8UVVGMgsjl daily as needed for Muscle Ravrh93396Dbbcwkpzz 2022 11:00pm[facility] 2023 10:24amHydrocodone-Acetaminophen 5-325 mg EtebwjAvqyleyanwro2MDIOVT1X as needed for Pain Scale 1 - 078818Ohhauydcy 2022March 2023 10:22amSpinal stenosis of lumbar region with neurogenic claudication Spinal stenosis, lumbar region with neurogenic claudicationAmitriptyline 10 mg tzsvytGibjzhfztpdd08KEZALhoyy at bedtimeJuly 2023 1:28pmOctober 2023 8:18amnauseaLinaclotide (Linzess) 72 mcg vsyjikmNvijikfhxmwk51QCFXCNggfsTschfnr 2024 12:00amApril 2024 9:43amLinaclotide (Linzess) 72 mcg capsule Zuxyvc46NCLPCDlhnd as neededApril 2024 9:43amComplies with drug therapy Venlafaxine 75 mg capsule,extended release 41bhFqinkzsifyjo49GHQLHfolxIrhmgaua 2020 12:00amSeptember 2022 10:47amOmeprazole 40 mg capsule,delayed release(DR/EC)Vvsyzgjwqpev89VJRYXwfhcHfnojege 2020 12:00amFebruary 2020 10:13amTramadol 50 mg qbqjrbTfgzhnkcyfzo72UJVPEucufYhweijol 2020 12:00amSeptember 2022 10:48amWarfarin 4 mg xpkyzqVefrlfrtqsgp7MACXieivj Wednesday, and WednesdayFebruary 2020 12:00amJanuary 2024 1:07pmZonisamide 100 mg wwwahwfHkojwaeuxxzk408JVAXAilxmRmwekqwp 2020 12:00amMarch 2023 2:12pmseizuresAmlodipine 10 mg mstpncYoiukfqbyapj79KPTT DailyFebruary 2020 12:00amSeptember 2022 10:41amNaproxen Sodium (Aleve) 220 mg TmtelwGvgcssugipgu447KIPZUkrif daily as needed for PainFebruary 2020 12:00amSeptember 2022 10:48amHydralazine 50 mg tablet Rywpqamunbnh47SMQIFd DirectedFebruary 2020 12:00amSeptember 2022 10:41amLevetiracetam 750 mg zyznokAtuxlsdllsro203ERPEOiqzr dailyFebruary 2020 12:00amMarch 2023 10:22amseizuresOndansetron 4 mg tablet,oiamliwelaovgnTatdygngbpxg8BHUHW0M as needed for NauseaFebruary 2020 12:00amJuly 2023 7:49amMelatonin 5 mg HeznivPsimwvuogifn5QBCKVxeyilp as needed for InsomniaFebruary 2020 12:00amSeptember 2022 10:48am Omeprazole 40 mg capsule,delayed release(DR/EC)Rrwuzgytzgan20GZJGOaonn vlhup814 January 06, 2021 12:00amSeptember 2022 10:46amZonisamide 100 mg capsule Dzfecb170MNPDUonyhIqxih 2023 2:12pmseizuresComplies with drug therapy Amlodipine 5 mg dvtjahBbwzagcrigic8CYINZfzwmBciif 2023 11:00pmJuly 2023 1:29pmCarvedilol 12.5 mg vrlnwdXgbdqymtbrnr47.5MGPOTwice dailyM[facility] Hospital 2023 11:00pmJuly 2023 5:47amHydrocodone-Acetaminophen 5-325 mg tablet Txomsduczhxp7CMCIAVeprc 8 hours as kaxdrh2XjgtjFebruary 07, 2024 11:00pmMay 2023 1:00pmLevetiracetam 750 mg zupmhgUcnvhs925QGUJMacha 12 hoursM[facility] 2023 11:00pmComplies with drug therapyVenlafaxine 150 mg capsule,extended release 13hoPyzemjpvzovz019BNVHRlxnuGnupg 2023 11:00pmApril 2023 12:31pm Venlafaxine 75 mg fdnqdiQilipfycxsnz10GYPGOcwjjEvzsy 2023 11:00pmJuly 2023 1:30pmMupirocin 2 % xafonibxLlyuckxccpqv6CKUQDAHXILLZQJvizt daily February 07, 2024 11:00pmJuly 2023 1:30pmLinaclotide 72 mcg capsule Zhhdtpghqsww13BYAGUPnlawAqayd 2023 11:00pmJuly 2023 1:32pm Linaclotide 72 mcg ypbrxwqNoozbmcwvunq62VYAPWHnptr as neededJune 08, 2024 1:32pmOctober 2023 10:05amDoxycycline Monohydrate 100 mg capsule Aijfiwxjbzfp049GDKUAlhbp zmmqd35815Mawlw 2024 11:00pmAugust 2024 1:58pmEdema of both lower extremities Localized edemaAmitriptyline 50 mg dnmsvkGsxkpg13FZFZNwbhd at mzhfiwz692658 October 09, 2025 12:00amComplies with drug therapyAmitriptyline 50 mg tablet Fecqzjbyinfg52TKGUAeygq at pxvezye662737Ceogsjx 14th, 2024 11:00pmOctober 2024 8:46amTake 1 tablet orally at bedtime.Linaclotide 72 mcg capsule Redwxnjwcufc09TXBVTIqipe817787Goitrrz 15th, 2024 10:04amOctober 2023 8:21amOmeprazole 40 mg capsule,delayed release(DR/EC)Qirgonxxywvt62KBJHYzvub jafxdxa475818Qgrmoat 15th, 2024 10:05amOctober 2024 2:37pmgerdTake 1 capsule orally 30 minutes before morning meal.Tramadol 50 mg tabletDiscontinued 50MGPOTwice daily as needed for skfi01499Kqe 2023 11:00pmMay 2023 2:17pmSpondylosis of lumbosacral spine with radiculopathy Other spondylosis with radiculopathy, lumbosacral regionCyclobenzaprine 5 mg aqbxquZeaiojrbuirr5LRUHNxdav dailyAugust 2023 11:00pmOctober 2023 9:53amCyclobenzaprine 5 mg sajafhVgtpkbstpeve7WZVHRilzb daily as neededOctober 2023 9:52amDecember 2023 8:59amCarvedilol 12.5 mg tabletDiscontinued 12.5MGPOTwice dailyOctober 2023 8:19amMay 2024 4:13pmLinaclotide 72 mcg ypuflwaYwmpmzbrcxcs85OIMIUSuacm as neededOctober 2023 8:21amDecember 2023 9:00amFerrous Sulfate 325 mg (65 mg iron) nynlakOgbxsbdfrugd273MRTS Every 48 rugjc726Mlqqkqf 2023 11:00pmApril 2024 7:42amErgocalciferol (Vitamin D2) 1,250 mcg (50,000 unit) kcrhmkfTuovxzxqrqbg7802ZBYSXfojcv yiuy923 September 06, 2024 11:00pmMay 2024 8:33amAmlodipine 5 mg qztmgnNnlqjh7ZRDF DailyApril 2024 9:42amComplies with drug therapyVenlafaxine 150 mg capsule,extended release 27prZgzwryxcvgba654YJIXZdjjlHnhav 2024 9:43am August 09, 2025 5:54amFurosemide (Lasix) 20 mg egyoheBbiqbwbpinhh87XAPD Bavhe337Tvoop 2024 11:00pmOctober 2024 7:59amCephalexin 500 mg capsule Xmdkjhtknokp662KSSTVnipw times xczjl5828Yfudfyg 2024 12:00amJanuary 2024 1:56pmCarvedilol 12.5 mg vzjtsaVjrtcr56.5MGPOTwice dailyOctober 2024 8:46amComplies with drug therapyErgocalciferol (Vitamin D2) 1,250 mcg (50,000 unit) uebaztiZptbvb62491UPAHLRqmkil weekOctober 2024 8:47amComplies with drug therapyFurosemide 20 mg fxehvhWjbqpljkjley70NYYKHcazm morningOctober 2024 8:47amOctober 2024 8:48amVenlafaxine 150 mg capsule,extended release 89wyYuzepi268FKDEXynab morningOctober 2024 8:48amComplies with drug therapy Immunizations Immunization Event Date Not Given Reason Dose Number Manager Primary Care Lot Number Reason(s) Given Vaccine Information Statement (VIS) Detail Administration Location COVID-19 mRNA-1273 (Moderna) December 17, 2020 COVID-19 mRNA-1273 (Moderna)January 14OVID-19 mRNA-1273 (Moderna)September 10, 2021Fluzone TIV High-Dose 65YR+August 29, [id number] [facility] ResourcesFluzone TIV High-Dose 65YR+September 06, [id number] [facility] Resourcesinfluenza, unspecified formulationOctober 2017influenza, unspecified formulationOctober 2018influenza, unspecified formulationOctober 2019 influenza, unspecified formulationSeptember 2020influenza, unspecified formulationSeptember neumococcal Polysacc. Vaccine, 23 valentMarch 2017 Procedures Procedure Date Performed Status MR lumbar spine wo con August 01, 2025 6:17 am completed MR lumbar spine wo/w con October 17, 2025 8:07 am completed Relevant Diagnostic Tests and/or Laboratory Data Laboratory Results Test Collection Date/Time Result Date/Time Result Interpretation Reference Range Result Comment Performing Site Urine Other Casts August 06, 2025 7:51am NONE SEEN #/LPFNONE SEENUrine Random CreatinineSeptember 2024 7:51am August 06, 2025 7:27cu989.50 mg/dL20.00-300.00Magnesium LevelSeptember 2024 8:01amSeptember 2024 8:01am2.1 mg/dL1.8-2.4Uric AcidSeptember 2024 8:01amSeptember 2024 8:01am5.1 mg/dL2.6-6.0Anion GapSeptember 2024 8:01amSeptember 2024 8:01am16.2Iron SaturationSeptember 2024 8:01amSeptember 2024 8:01am30.2 %Parathyroid Hormone (Intact) August 06, 2025 8:01amSept2024 8:98hv196 pg/mLAbnormal (applies to non-numeric results)15-65Performed at: [facility] [id number] Director: Junaid Sawyer PhD, Phone: [phone]- Hydroxy Vitamin D TotalSeptember 2024 8:01amSeptember 2024 8:01am 51.2 ng/mL<20 ng/mL Vit D htqjivjrn20-<30 ng/mL Vit D -988 ng/mL Vit D sufficient>100 ng/mL Potential ToxicityFerritinSeptember 2024 8:01am August 06, 2025 8:01am74.0 ng/mL8.0-252.0HematocritSept2024 8:01amSept2024 8:01am40.5 %36.0-48.0B-Type Natriuretic Peptide October 12, 2025 2:53amNovember 2024 2:35lv277.0 pg/mL<=1800.0Anion Gap October 12, 2025 2:53amNovember 2024 2:53am10.9Activated Partial Thromboplast TimeNov2024 2:53amNovember 2024 2:53am34.7 sec 22.3-36.2Prothromb Time International RatioNove2024 2:53amNovemb2024 2:53am2.53DESIRED INR:2.0-3.0 CONDITIONS NOT LISTED BELOW2.5-3.5 FOR PROSTHETIC HEART VALVE REPLACEMENT2.5-3.5 RECURRENT THROMBOSISBasophils # (Auto) October 12, 2025 2:53amNovember 2024 2:53am0.0 10 3/uL0.0-0.1Troponin I High SensitivityOctober 12, 2025 4:30amNovemb2024 4:30am5.7 pg/mL 4.0-51.3CUT-OFF POINTS HAVE BEEN ESTABLISHED BASED ON THE FOURTHUNIVERSAL DEFINITION OF MYOCARDIAL INFARCTION. THE UPPERREFERENCE LIMIT (URL) OF TROPONIN, DEFINED THE 99THPERCENTILE OF cTnI DISTRIBUTION IN A REFERENCE POPULATION,HAS BEEN CONFIRMED THE DECISION THRESHOLD FOR MIDIAGNOSIS.99TH PERCENTILE = 51.4 PG/MLNOTE: HIGH-SENSITIVITY TROPONIN ASSAY IS NOT INTENDED TO BEUSED IN ISOLATION BUT SHOULD BE INTERPRETED IN CONJUNCTIONWITH OTHER DIAGNOSTIC AND CLINICAL INFORMATION.Urine Other CrystalsSeptember 2024 7:51amNone Seen #/HPFNone SeenUrine Protein/Creatinine RatioSept2024 7:51amSept2024 7:51am0.17AlbuminSeptember 2024 8:01amSept2024 8:01am3.9 g/dL3.4-5.0Iron LevelSept2024 8:01amSeptember 2024 8:01am84.0 ug/dL50.0-170.0HemoglobinSeptember 2024 8:01amSept2024 8:01am12.9 g/dL12.0-16.0Albumin/Globulin RatioNovember 2024 2:53am October 12, 2025 2:53am1.1Prothrombin TimeNovember 2024 2:53amNovemb2024 2:53am24.5 secAbove high normal9.0-11.6Basophils (%) (Auto)October 12, 2025 2:53amNovember 2024 2:53am0.2 %0.2-2.0Urine BacteriaSeptember 2024 7:51amTRACE #/HPFAbnormal (applies to non-numeric results)NONE SEEN Urine Random Total ProteinSeptember 2024 7:51amSeptember 2024 7:51am 22.3 mg/dLAbove high normal<=11.9BUN/Creatinine RatioSeptember 2024 8:01am August 06, 2025 8:01am14.0Total Iron Binding CapacitySeptember 2024 8:01amSeptember 2024 8:10ca390.0 ug/dL250.0-450.0Mean Corpuscular HemoglobinSeptember 2024 8:01amSeptember 2024 8:01am32.3 pg26.7-34.0 AlbuminNovember 2024 2:53amNovember 2024 2:53am3.1 g/dLBelow low normal3.4-5.0Eosinophils # (Auto)October 12, 2025 2:53amNovember 2024 2:53am0.1 10 3/uL0.0-0.7Urine BilirubinSeptember 2024 7:51amNEGATIVE NEGATIVEBlood Urea NitrogenSeptember 2024 8:01amSeptember 2024 8:01am25.0 mg/dLAbove high normal7.0-18.0Mean Corpuscular Hemoglobin Concent August 06, 2025 8:01amSeptember 2024 8:01am31.9 g/dL29.9-35.2Alkaline PhosphataseNov2024 2:53amNovember 2024 2:81ry337 U/LAbove high egqxrr30-796Gwwrbavecvx (%) (Auto)October 12, 2025 2:53amNovember 2024 2:53am2.8 %0.9-7.0Urine Occult BloodSeptember 2024 7:51amNEGATIVENEGATIVE Calcium LevelSeptember 2024 8:01amSept2024 8:01am8.5 mg/dL 8.5-10.1Mean Corpuscular VolumeSeptember 2024 8:01amSeptember 2024 8:38gp203.5 fLAbove high uhpbbz37.0-99.0Alanine Aminotransferase (ALT/SGPT) October 12, 2025 2:53amNovember 2024 2:53am45 U/J65-49Bewvtpzwns October 12, 2025 2:53amNovember 2024 2:53am36.2 %36.0-48.0Urine AppearanceSeptember 2024 7:51amCLEARCLEARChloride LevelSeptember 2024 8:01amSept2024 8:29ut920 mmol/H60-742Ohdx Platelet Volume August 06, 2025 8:01amSept2024 8:01am9.6 fL9.5-13.5Aspartate Amino Transf (AST/SGOT)October 12, 2025 2:53amNovember 2024 2:53am94 U/LAbove high -60IruzqvbpniXafycggo 28th, 2025 2:53amNovember 2024 2:53am11.9 g/dLBelow low vdkyfq08.0-16.0Urine ColorSeptember 2024 7:51am YELLOWYELLOWCarbon Dioxide LevelSeptember 2024 8:01amSeptember 2024 8:01am23.9 mmol/L21.0-32.0Platelet CountSeptember 2024 8:01amSeptember 2024 8:47am209 10 3/yP361-322OUY/Creatinine RatioNovember 2024 2:53amNovember 2024 2:53am12.4Immature Granulocyte # (Auto)October 12, 2025 2:53amNovember 2024 2:53am0.02 10 3/uL0.00-0.03Urine Glucose (UA) August 06, 2025 7:51amNEGATIVE mg/dLNEGATIVECreatinineSeptember 2024 8:01amSeptember 2024 8:01am1.78 mg/dLAbove high normal0.55-1.02Red Blood CountSeptember 2024 8:01amSeptember 2024 8:01am3.99 10 6/uLBelow low normal4.20-5.40Blood Urea NitrogenNovember 2024 2:53amNovember 2024 2:53am21.0 mg/dLAbove high normal7.0-18.0Immature Granulocyte % (Auto)October 12, 2025 2:53amNovember 2024 2:53am0.4 %0.0-0.5Urine KetonesSeptember 2024 7:51amNEGATIVE mg/dLNEGATIVEEstimated GFR ()August 06, 2025 8:01amSept2024 8:07vd47Ldztf low normal>=60 mL/min/1.73m 2Red Cell Distribution WidthSeptember 2024 8:01amSept2024 8:01am12.5 %11.0-15.0Calcium LevelNovember 2024 2:53amNovember 2024 2:53am8.4 mg/dLBelow low normal8.5-10.1Lymphocytes # (Auto)October 12, 2025 2:53amNovember 2024 2:53am1.2 10 3/uL1.2-3.8Urine Leukocyte Esterase August 06, 2025 7:51amNEGATIVENEGATIVEEstimated GFR (Non- August 06, 2025 8:01amSept2024 8:37ha85Ikexh low normal>=60 mL/min/1.73m 2Corrected White Blood CountSeptember 2024 8:01amSeptember 2024 8:01am4.7 10 3/uL4.0-11.0Chloride LevelNovember 2024 2:53am October 12, 2025 2:44az221 mmol/J78-148Ahebzrhwcpz (%) (Auto)October 12, 2025 2:53amNovemb2024 2:53am26.0 %20.5-60.0Urine MucusSeptember 2024 7:51amNONE SEENNONE SEENGlucose LevelSeptember 2024 8:01amSeptember 2024 8:27tw836 mg/zX37-234Qblxqg Dioxide LevelNovember 2024 2:53am October 12, 2025 2:53am24.2 mmol/L21.0-32.0Mean Corpuscular Hemoglobin October 12, 2025 2:53amNovember 2024 2:53am33.1 pg26.7-34.0Urine NitriteSeptember 2024 7:51amNEGATIVENEGATIVEPotassium LevelSeptember 2024 8:01amSeptember 2024 8:01am4.1 mmol/L3.5-5.1CreatinineNovember 2024 2:53amNovember 2024 2:53am1.69 mg/dLAbove high normal0.55-1.02Mean Corpuscular Hemoglobin ConcentNovember 2024 2:53amNovember 2024 2:53am32.9 g/dL29.9-35.2Urine pHSeptember 2024 7:51am6.05.0-9.0Sodium LevelSeptember 2024 8:01amSeptember 2024 8:74my963 mmol/X090-471 Estimated GFR ()October 12, 2025 2:53amNovemb2024 2:17zw06Pndyk low normal>=60 mL/min/1.73m 2Mean Corpuscular VolumeNovember 2024 2:53amNovember 2024 2:06nl283.6 fLAbove high .0-99.0Urine ProteinSeptember 2024 7:51amNEGATIVE mg/dLNEG/TRACEPhosphorus Level August 06, 2025 8:01amSeptember 2024 8:01am3.6 mg/dL2.6-4.7Estimated GFR (Non- AmericanNovember 2024 2:53amNovemb2024 2:53am30 Below low normal>=60 mL/min/1.73m 2Monocytes # (Auto)October 12, 2025 2:53am October 12, 2025 2:53am0.3 10 3/uL0.3-0.8Urine RBCSeptember 2024 7:51am 0-2 #/HPF0-2GlobulinNovember 2024 2:53amNovemb2024 2:53am2.9 g/dL Monocytes (%) (Auto)October 12, 2025 2:53amNovemb2024 2:53am6.5 % 1.7-12.0Urine Specific GravitySeptember 2024 7:51am1.0251.005-1.025Glucose LevelNovember 2024 2:53amNovember 2024 2:02iq840 mg/dLAbove high drtadj08-353Etae Platelet VolumeNovember 2024 2:53amNovember 2024 2:53am9.7 fL9.5-13.5Urine Squamous Epithelial CellsSeptember 2024 7:51am RARE #/LPFNONE/RAREPotassium LevelNovember 2024 2:53amNovember 2024 2:53am4.1 mmol/L3.5-5.1Neutrophils # (Auto)October 12, 2025 2:53amNovember 2024 2:53am3.0 10 3/uL1.4-6.5Urine UrobilinogenSeptember 2024 7:51am 1.0 EU/dL0.2-1.0Sodium LevelNov2024 2:53amNovember 2024 2:53am 138 mmol/T298-893Xjkdtkawpig (%) (Auto)October 12, 2025 2:53amNovember 2024 2:53am64.1 %43.0-75.0Urine WBCSeptember 2024 7:05fm7-3 #/HPFAbnormal (applies to non-numeric results)NONE SEENTotal BilirubinNov2024 2:53amNovemb2024 2:53am0.5 mg/dL0.2-1.0Platelet CountNov2024 2:53amNovember 2024 2:21aa462 10 3/mQ016-492Jxngj ProteinNov2024 2:53amNovember 2024 2:53am6.0 g/dLBelow low normal6.4-8.2Red Blood CountNov2024 2:53amNovember 2024 2:53am3.60 10 6/uLBelow low normal4.20-5.40Red Cell Distribution WidthOctober 12, 2025 2:53amNovember 2024 2:53am12.8 %11.0-15.0Corrected White Blood CountNov2024 2:53amNovember 2024 2:53am4.6 10 3/uL4.0-11.0CreatinineSept2024 6:28amSept2024 7:05am1.91 mg/dLAbove high normal0.60-1.20 [facility] [id number] [address] [place] [address] [id number] GFR (CKD-EPI)August 01, 2025 6:28amSept2024 7:05am27.025 mL/[facility] [id number] [address] [place] [address] 89683Czqydivs Creatinine Clearance (ChemSept2024 6:28am August 01, 2025 7:05am25.93[facility] [id number] [address] [place] [address] 29897Hkwtogh CreatinineSept2024 6:36amSeptember 2024 6:38am1.9 mg/dLAbove high normal0.6-1.3ER/ESD physician is notified/shown all ISTAT results.Critical values may be confirmed by laboratorytesting ifdeemed necessary by ER attending doctor.[facility] [id number] [address] [place] [address] [id number] Estimated GFR (eGFR)August 01, 2025 6:36am August 01, 2025 6:38am27.197[facility] [id number] [address] [place] [address] Diagnostic Imaging Reports Author Arnel Simon [facility] OhioAuthoredSept2024 3:08pmReport Dictated Date/TimeDictated ByStatusRadiology ReportSept2024 3:08pm Arnel Simon II [facility] [place] [address] [place] [address] MRI Report Signed Patient: Cassi Rodrigez MR#: [id number] : 1950 Acct:[id number] Age/Sex: 75 / F ADM Date: 5 Loc: MR Room: Type: [facility] Attending Dr: Tiana CHAMBERS Copies to: REYES [...] Simon M.D. 08/01/2025 3:20 PM Dictation Location: [facility]17 Transcribed By: [facility] 08/01/25 1520 Dictated By: Arnel Simon II, MD 08/01/25 1508 Signed By: <Electronically signed by Arnel Simon II, MD in [place]> 08/01/25 1520 Author Arnel Simon [facility] OhioAuthoredDequail run [facility] 2024 9:43amReportDictated Date/TimeDictated ByStatusRadiology ReportDecebanner [facility] 2024 9:43amMarlilia Simon II [facility] [place] [address] MRI Report Signed Patient: Cassi Rodrigez MR#: [id number] : 1950 Acct:[id number] Age/Sex: 75 / F ADM Date: 5 Loc: Room: Type: [facility] Attending Dr: Low Littlejohn DO Copies to: Low Littlejohn DO~ Ordering Provider: Low Littlejohn DO Date of Service: 10/17/25 MR/MR lumbar spine wo/w con: M96.1 - Postlaminectomy syndrome, not elsewhere classified MR lumbar spine wo/w con 10/17/2025 9:01 AM SIGNS AND SYMPTOMS: Status post laminectomy, low back pain radiating down right leg PROTOCOL: Multiplanar multisequence MR images of the lumbar spine with and without IV contrast CONTRAST: 15 mL of intravenous ProHance COMPARISON: 08/01/2025 FINDINGS: The bones of the lumbar spine are in anatomic alignment. There is preservation of vertebral body heights. There is evidence of previous laminectomy at L4-5 with fusion hardware at L5-S1. Expected postoperative enhancing granulation tissue is noted posteriorly in the laminectomy site. There is moderate severe disc height loss at L1-L2 and L2-L3. There is mild disc height loss at L3-4 and L4-5. There is Modic type I endplate edema at L1- L2, L2-L3, L3-L4, and L4-5. The conus terminates at the inferior endplate of the L1 vertebral body level. No epidural or paraspinous fluid collection is appreciated. There is right-sided renal cortical atrophy which appears be chronic in nature. At T12-L1: There is a normal disc, central canal, and neural foramen. At L1-L2: There is a broad-based disc bulge with endplate osteophyte formation. There is mild bilateral neural foraminal narrowing without spinal canal narrowing. This is unchanged. At L2-L3: There is a broad-based disc bulge with endplate osteophyte formation and facet hypertrophy. There is mild spinal canal stenosis with moderate left and mild right neural foraminal narrowing. Is unchanged. At L3-L4: There is a circumferential disc bulge with facet hypertrophy and ligamentum flavum thickening. There is moderate spinal canal stenosis with moderate bilateral neural foraminal narrowing. This is unchanged. At L4-L5: There is a circumferential disc bulge. There is evidence of posterior decompression. There is facet hypertrophy is severe right and moderate left neural foraminal narrowing with mild spinal canal narrowing. There is mass effect on the exiting right L4 nerve roots. This is unchanged. At L5-S1: There is evidence of prior intervertebral fusion with posterior decompression. There is facet hypertrophy. No significant spinal canal stenosis. There is mild bilateral neural foraminal narrowing. This is unchanged. MR/MR lumbar spine wo/w con IMPRESSION: There is evidence of previous laminectomy at L4-5 with fusion hardware at L5-S1. Expected postoperative enhancing granulation tissue is noted posteriorly in the laminectomy site. At L3-L4: There is a circumferential disc bulge with facet hypertrophy and ligamentum flavum thickening. There is moderate spinal canal stenosis with moderate bilateral neural foraminal narrowing. This is unchanged. At L4-L5: There is a circumferential disc bulge. There is evidence of posterior decompression. There is facet hypertrophy is severe right and moderate left neural foraminal narrowing with mild spinal canal narrowing. There is mass effect on the exiting right L4 nerve roots. This is unchanged. Similar degenerative changes are noted as above. Impression dictated by: Arnel Simon M.D. 10/17/2025 9:53 AM Dictation Location: [facility]23 Transcribed By: TONO 10/17/25 0953 Dictated By: Arnel Simon II, MD 10/17/2543 Signed By: <Electronically signed by Arnel Simon II, MD in [place]> 10/17/25 0953 Vital Signs Vital Reading Result Reference Range Collection Date/Time Height 62 [in_i] August 01, 2025 6:19acSgkfty34.18 kgSeptember 2024 6:16bwSgrzln86 [in_i]August 15, 2025 8:22fcNhsxlm87.23 kgOctober 2024 8:41amBody Vlfascznyuj68.5 [degF]97.6-99.0August 15, 2025 8:41amHeart Rate75 /qns02-714 August 15, 2025 8:41amRespiratory rate18 /jwd08-46XbawvzcAugust 15, 2025 8:41am Oxygen saturation by Pulse eujhnixm46 %95-100August 15, 2025 8:41amBP Systolic 113 mm[Hg]100-140August 15, 2025 8:41amBP Tvilnpnir02 mm[Hg]60-100August 15, 2025 8:41amBMI (Body Mass Index)33.5 kg/u3NyaduydAugust 15, 2025 8:21yrKoncza28 [in_i]August 28, 2025 8:82dfAysnkd62.00 kgOctober 2024 8:49amHeart Rate 67 /ils70-137QhczfikAugust 28, 2025 8:49amBP Bfrkurdy664 mm[Hg]100-140August 28, 2025 8:49amBP Yxrtevmcn33 mm[Hg]60-100Oct2024 8:49amBMI (Body Mass Index)33.5 kg/i1SuhbfhsAugust 28, 2025 8:92guSgynkb61 [in_i]September 10, 2025 7:30jaTejpec98.90 kgOctober 2024 7:58amBMI (Body Mass Index)32.5 kg/m2 September 10, 2025 7:17mnRnongg81 [in_i]October 09, 2025 10:34txWnflhd75.47 kgNov2024 10:27amHeart Rate82 /lad76-014LfpaqcqbOctober 09, 2025 10:27am BP Ywcopnpl339 mm[Hg]100-140Nov2024 10:27amBP Zvgtqebcm30 mm[Hg] 60-100Nov2024 10:27amBMI (Body Mass Index)31.6 kg/q8Xiqojtuw2024 10:55vpKvyevg83 [in_i]October 17, 2025 8:56qkFurgqe37.47 kgDeceer 2024 8:97dxMwgnue09 [in_i]October 26, 2025 10:86lyWbutaj59.94 kgDeceer 2024 10:57amHeart Rate80 /lkn61-227Zblezsek 12th, 2025 10:57amRespiratory rate12 /xyk75-95Xhhmebxq 2024 10:57amBP Qmtladzl270 mm[Hg]100-140[facility] 2024 10:57amBP Rourlxkuk24 mm[Hg]60-100Decebanner [facility] 2024 10:57amBMI (Body Mass Index)32.2 kg/l2Fzkmbevi 2024 10:57am Advance Directives Advance Directive Response Recorded Date/ Time Advance Directives No July 9:19am Insurance Providers Guarantor Cassi Rodrigez Address [address] [place] [id number] Info.Home Phone: Coverage Status Update:2024 Payer Group Member ID Coverage Type Subscriber Relationship to Subscriber Effective Date Expiration Date Cate ESTES [id number] Elia Id: [id number] [address] [place] [id number] Home Phone: Email: [email or web address] Encounters Encounter Location(s) Arrival/Admit Date Discharge/Departure Date Discharge/Departure Disposition Provider(s) Departed Clinical -[facility] August 01, 2025 7:15am August 01, 2025 7:16am Discharged to home care or self care (routine discharge) Tiana E Trudi , CARE NAVIGATOR-C Non-patient / Non-visit -[facility] August 06, 2025 8:51am Katina Ordoñez , JUDYeparted Physician/Provider [facility] 2024 9:36amOctober 2024 10:06amDischarged to home care or self care (routine discharge)JUDY Bhatiaeparted Physician/Provider [facility] 2024 9:35amOctober 2024 10:15am Discharged to home care or self care (routine discharge)Adonis Burnette APRN [facility]ed [facility] 10:45amOctober 2024 10:51amDischarged to home care or self care (routine discharge)[place] Martineseparted Physician/Provider [facility]- [facility] 20[facility] 8:51amOctober 2024 9:29am Discharged to home care or self care (routine discharge)Orlando Bartlett- patient / [facility]or[facility]jdowr[facility] 2024 10:59am María Alberto MDDeparted Physician/Provider Office Visit-[facility] 2024 10:14amNovember 2024 11:00amDischarged to home care or self care (routine discharge)Adonis Burnette APRNNon-patient / Aqx-haggm-[facility] 2024 2:53amAdonis Hutchison-patient / Csd-eawhj-[facility] 20[facility] 12:00pm Ana M Alas CMADeparted Clinical-[facility] 2024 7:55am October 17, 2025 7:56amDischarged to home care or self care (routine discharge)[place] Bartletteparted Physician/Provider Office Visit-[facility] 2024 10:46amDecember 2024 11:54amDischarged to home care or self care (routine discharge)Broderick Ball , DO Recent Diagnosis Onset Date Admit Date Anemia of renal disease Unknown August 15, 2025 9:36am CKD (chronic kidney disease) stage 4, GFR 15-29 ml/min Unknown August 15, 2025 9:36am GERD (gastroesophageal reflux disease) Unknown August 15, 2025 9:36am Hypertensive chronic kidney disease with stage 1 through stage 4 chronic ki Unknown August 15, 2025 9:36am Secondary hyperparathyroidism Unknown Oc 2024 9:36am GERD (gastroesophageal reflux disease) Unknown August 28, 2025 9:35am History of pancreatic cancer Unknown Aug 9:35am History of Whipple procedure Unknown Aug 9:35am IBS (irritable colon syndrome) Unknown O ctober 2024 9:35am Nausea Unknown August 28 9:35am Post laminectomy syndrome Unknown Augobe r 2024 8:51am GERD (gastroesophageal reflux disease) Unknown October 09, 2025 10:14am History of pancreatic cancer Unknown Sep 10:14am History of Whipple procedure Unknown Sep 10:14am Irritable bowel syndrome with constipation Unkno wn October 09, 2025 10:14am Nausea Unknown October 09, 025 10:14am Abdominal pain Unknown October 26, 10:46am Age-related osteoporosis wit hout current pathological fracture Unknown October 26, 2025 10:46am Chest pain Unknown October 26, 025 10:46am Chronic kidney disease Unknown October 26, 2025 10:46am Elevated transaminase level Unknown Dece 2024 10:46am Gastroesophageal reflux dise ase with esophagitis without hemorrhage Unknown October 26, 2025 10: 46am History of pancreatic cancer Unknown Oct 10:46am Hypertension Unknown October 26, 025 10:46am Lumbar stenosis with neurogenic claudication Unk nown October 26, 2025 10:46am Major depression Unknown October 26, 2025 10:46am Nausea Unknown October 26, 025 10:46am Assessments Diagnosis Onset Date Resolution Status Admit Date Anemia of renal disease acuteAugust 15, 2025 9:36amCKD (chronic kidney disease) stage 4, GFR 15-29 ml/minacuteAugust 15, 2025 9:36amGERD (gastroesophageal reflux disease)acute August 15, 2025 9:36amHypertensive chronic kidney disease with stage 1 through stage 4 chronic kiacuteOctober 2024 9:36amSecondary hyperparathyroidism acuteOctober 2024 9:36amGERD (gastroesophageal reflux disease)acuteOctober 2024 9:35amHistory of pancreatic canceracuteOctober 2024 9:35am History of Whipple procedureacuteOctober 2024 9:35amIBS (irritable colon syndrome)acuteOctober 2024 9:35amNauseaacuteOctober 2024 9:35amPost laminectomy syndromeacuteOctober 2024 8:51amGERD (gastroesophageal reflux disease)acuteNov2024 10:14amHistory of pancreatic canceracute October 09, 2025 10:14amHistory of Whipple procedureacuteNov2024 10:14amIrritable bowel syndrome with constipationacuteNov2024 10:14amNauseaacuteNov2024 10:14amAbdominal painacuteDeceer 2024 10:46amAge-related osteoporosis without current pathological fractureacute October 26, 2025 10:46amChest painacuteDeceer 2024 10:46amChronic kidney diseaseacutece2024 10:46amElevated transaminase levelacute October 26, 2025 10:46amGastroesophageal reflux disease with esophagitis without hemorrhageacutequ[facility] 2024 10:46amHistory of pancreatic cancer acuteOctober 26, 2025 10:46amHypertensionacuteEn[facility] 2024 10:46am Lumbar stenosis with neurogenic claudicationacuteDecebanner [facility] 2024 10:46am Major depressionacuteDece2024 10:46amNauseaacuteDece2024 10:46am Plan of Treatment Author Hank Maher [facility] [place]AuthoredOctober 2024 2:34pmA 75-year-old female patient with diagnosis [...] to discuss treatment efficacy Author Low Littlejohn [facility] OhioAuthoredOctober 2024 8:32amIn summary the patient is a 75-year-old female that presents to clinic today with chief complaints of not only back pain but also right lower extremity radiculopathy. 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 Author Hank Maher [facility] OhioAuthoredNovember 2024 2:52pmA 75-year-old female patient diagnosis of GERD, dyspeptic complaints of nausea, IBS-C, history of Whipple procedure related to pancreatic cancer Continue Linzess 72 mcg for IBS-C symptoms, patient is having regular daily bowel movements without abdominal pain or fecal urgency Continue omeprazole 40 mg once daily patient without epigastric pain or heartburn. Patient does note ongoing nausea Initiate at bedtime amitriptyline for ongoing nausea, patient did utilize 25 mg amitriptyline with some improvement of the nausea however this was discontinued for unknown reasons. Patient was recommended to increase this to 50 mg at at bedtime at last appointment with previous caregiver Follow-up in this office in 6 weeks to discuss treatment efficacy with regard to initiation neuromodulation related to her nausea and pancreatic/Whipple history Author Broderick Joiner [facility] OhioCynFinnbanner [facility] 2024 9:20pmI have instructed this patient to consume a [...] d/c of medication due to w/d symptoms. Completed ER evaluation: CT CAP w/o acute findings to explain her pain. CT head w/o infarct, hemorrhage or mass LABS w/ normal CBC, CMP and Troponins EKG: paced w/o acute ST/T wave changes Author Katina Ordoñez [facility] OhioAuthoredOctgeorgetown community hospital 2024 9:11amShe has longstanding CKD due [...] Tests Test Name Ordered Date Scheduled Date Comprehensive Metabolic Panel October 26 11:43am [facility] 9:02am6 Months Future Visits Future appointment information is unavailable Future Procedures Procedure Name Ordered Date Scheduled Date NE emg LE RT September 10, 2025 2:28pm AmylaseDecember 2024 11:44amComplete Blood Count Auto DiffDecember 2024 11:43amC-Reactive ProteinDecember 2024 11:43amErythrocyte Sedimentation RateDecember 2024 11:43amLipaseDecember 2024 11:44am Dipstick and MicroscopicOctober 2024 9:02am6 MonthsHemogram CBC [...]
[2025-10-29 11:09] LABS: Hematocrit 37.8 % (36.0-48.0); Hemoglobin 12.5 g/dL (12.0-16.0); Immature Granulocytes Abs Auto 0.02 10^3/uL (0.00-0.03); Immature Granulocytes Pct Auto 0.4 % (0.0-0.5); Lymphocytes Absolute Auto 0.8 10^3/uL (1.2-3.8); Mean Corpuscular HGB Conc 33.1 g/dL (29.9-35.2); Mean Corpuscular Hemoglobin 33.4 pg (26.7-34.0); Mean Corpuscular Volume 101.1 fL (81.0-99.0); Platelet Count 194 10^3/uL (150-450); Red Blood Count 3.74 10^6/uL (4.20-5.40); White Blood Count 5.1 10^3/uL (4.0-11.0)
[2025-10-29 11:57] LABS: Alanine Aminotransferase 22 U/L (14-59); Albumin Globulin Ratio 1.0; Albumin Level 3.2 g/dL (3.4-5.0); Alkaline Phosphatase 208 U/L (46-116); Amylase 13 U/L (25-115); Anion Gap 10.5; Aspartate Amino Transferase 18 U/L (15-37); Blood Urea Nitrogen 25.0 mg/dL (7.0-18.0); Calcium 8.4 mg/dL (8.5-10.1); Carbon Dioxide 28.3 mmol/L (21.0-32.0); Chloride 109 mmol/L (98-107); Estimated GFR (African America 36 (>=60 mL/min/1.73m^2); Estimated GFR (Non-African Ame 30 (>=60 mL/min/1.73m^2); Globulin 3.1 g/dL; Glucose 114 mg/dL (74-106); Lipase 12.0 U/L (16.0-77.0); Potassium 4.8 mmol/L (3.5-5.1); Sodium 143 mmol/L (136-145); Total Protein 6.3 g/dL (6.4-8.2)
== END 2025-10-29 10:48 | disposition home or self-care (01) ==
LOC: LAB 10:49
PROVIDERS: PCP Internal Medicine; Visit Provider Internal Medicine
DX: R10.12 Left upper quadrant pain (principal); C25.9 Malignant neoplasm of pancreas, unspecified; R74.01 Elevation of levels of liver transaminase levels; R11.0 Nausea; Z85.07 Personal history of malignant neoplasm of pancreas
CPT/HCPCS: 36415; 80053; 82150; 83690; 85025; 85652; 86140